=== PATIENT | female | born 1955 | race Caucasian/White ===

== ENCOUNTER 2022-09-25 16:52 | Outpatient (OUT) | payer MEDICARE, OTHER, SELFPAY ==
--- NOTE | 2022-09-25 | XR_ITS ---
The [address] [address] Patient Name: GABRIELA GODINEZ MRN: [id number] date: 1955 Sex: F Assigned Patient Location: [facility] Current Patient Location: Accession/Order Number: [id number] Exam Date: 09/25/2022 17:30 Report Date: 09/26/2022 07:41 At the request of: GABRIELA TROY Procedure: XR ribs LT 2V EXAMINATION: XR ribs LT 2V HISTORY: M25.512 COMPARISON: No relevant comparison available. FINDINGS: LUNGS: Patchy infiltrates left midlung, atelectasis or scar is favored. Underlying hyperinflation. PLEURA: No pneumothorax, effusion, or pleural thickening. MEDIASTINUM: No visible mass or adenopathy. CARDIAC: No cardiomegaly or cardiac silhouette abnormality. RIBS: Contour deformity left anterior lateral third fourth fifth sixth and seventh ribs OTHER: Negative. IMPRESSION: Contour deformity left lateral third through seventh ribs, age indeterminate fractures Electronically authenticated by: ABDIAS LAUGHLIN Date: 09/26/2022 07:41
--- NOTE | 2022-09-25 | XR_ITS ---
The [address] [address] Patient Name: GABRIELA GODINEZ MRN: [id number] date: 1955 Sex: F Assigned Patient Location: [facility] Current Patient Location: [facility] Accession/Order Number: [id number] Exam Date: 09/25/2022 17:30 Report Date: 09/25/2022 19:28 At the request of: GABRIELA TROY Procedure: XR shoulder LT min 2V EXAM: XR shoulder LT min 2V HISTORY: PLEURODYNIA R07.81 . The patient fell 09/22/2022 COMPARISON: None. TECHNIQUE: 3 views of the left shoulder were obtained. FINDINGS: There is no evidence of an acute fracture or dislocation. There is mild narrowing of the acromioclavicular joint. The acromiohumeral interval is intact and no abnormal soft tissue calcifications are present. Diffuse osteopenia is noted. IMPRESSION: No acute fracture or dislocation. Mild degenerative changes are present with diffuse osteopenia. Electronically authenticated by: MELLY SEO Date: 09/25/2022 19:28
--- NOTE | 2022-09-25 | XR_ITS ---
The [address] [address] Patient Name: GABRIELA GODINEZ MRN: [id number] date: 1955 Sex: F Assigned Patient Location: [facility] Current Patient Location: [facility] Accession/Order Number: [id number] Exam Date: 09/25/2022 17:30 Report Date: 09/25/2022 18:18 At the request of: GABRIELA SIMMONS Procedure: XR chest 2V EXAM: XR chest 2V HISTORY: pLEURODYNIA R07.81 LT SHOULDER PAIN M25.512 . The patient fell 3 days ago. COMPARISON: 05/22/2022 TECHNIQUE: Upright PA and lateral chest x-ray FINDINGS: The heart is not enlarged and the vasculature is not distended. Lungs are overexpanded with flattening of the hemidiaphragms. Linear atelectasis or scarring is seen in the left mid lung. There is no clear evidence of a focal infiltrate, effusion or pneumothorax. The osseous structures are grossly intact. Surgical clips project over the right hemithorax. IMPRESSION: No apparent acute infiltrate or evidence of cardiac decompensation. Chronic changes are noted. The overall appearance of the chest has not changed significantly. Electronically authenticated by: MELLY SEO Date: 09/25/2022 18:18
== END 2022-09-25 16:53 | disposition home or self-care (01) ==
LOC: RAD 16:57
PROVIDERS: PCP Nurse Practitioner Family; Visit Provider Nurse Practitioner Family
DX: R07.81 Pleurodynia (principal); M25.512 Pain in left shoulder; M85.812 Other specified disorders of bone density and structure, left shoulder
CPT/HCPCS: 71046; 71100; 73030

== ENCOUNTER 2022-09-26 19:55 | Emergency (ER) | payer MEDICARE, OTHER, SELFPAY ==
[2022-09-26 20:00] VITALS: BP 145/77; PULSE 97; RESP 16; TEMP 37.2; O2SAT 95; BMI 25.7
--- NOTE | 2022-09-26 20:44 | ED.TRAUMA1 ---
HPI - Trauma General Chief Complaint: Extremity Injury, Upper Stated Complaint: RIB PAIN Time Seen by Provider: 09/26/22 20:37 Source: patient Mode of arrival: Wheelchair History of Present Illness HPI narrative: patient states she tripped on her carpet at home and fell against the door striking her left chest and shoulder. Presents complaining of pain of her ribs and left shoulder. States her shoulder is now clicking. She is not short of breath but increased pain with deep breath. Denies striking her head or any injury to her neck. Denies weakness of her extremities. No associated nausea or vomiting. Denies injury to her lower extremities or back. MD complaint: Reports fall and injury Onset (ago): hour(s) Related Data Home Medications Medication Instructions Recorded Confirmed albuterol sulfate 90 mcg/actuation 2 inh inhalation Q6H PRN shortness 09/26/22 09/26/22 aerosol inhaler of breath or wheezing cetirizine 10 mg tablet 10 mg PO DAILY 09/26/22 09/26/22 fluticasone furoate 100 1 inh inhalation Q24H 09/26/22 09/26/22 mcg-vilanterol 25 mcg/dose inhalation powder (Breo Ellipta) gabapentin 600 mg tablet 1,200 mg PO .qhs 09/26/22 09/26/22 isosorbide mononitrate 60 mg 60 mg PO .q24 09/26/22 09/26/22 tablet,extended release 24 hr levofloxacin 750 mg tablet 750 mg PO Q24H 09/26/22 09/26/22 metoclopramide HCl 10 mg tablet 10 mg PO .COMPLEX 09/26/22 09/26/22 metoprolol succinate 100 mg 100 mg PO Q12H 09/26/22 09/26/22 tablet,extended release 24 hr ondansetron 4 mg disintegrating 4 mg translingual Q6H PRN nausea 09/26/22 09/26/22 tablet and vomiting pantoprazole 40 mg tablet,delayed 40 mg PO DAILY 09/26/22 09/26/22 release potassium chloride 10 mEq 10 meq PO BID 09/26/22 09/26/22 tablet,extended release(part/cryst) prednisone 20 mg tablet 20 mg PO .q8 09/26/22 09/26/22 promethazine 25 mg tablet 25 mg PO Q4H PRN nausea and 09/26/22 09/26/22 vomiting quetiapine 50 mg tablet 50 mg PO .qhs 09/26/22 09/26/22 tizanidine 4 mg tablet 4 mg PO Q12H PRN muscle spasticity 09/26/22 09/26/22 tramadol 50 mg tablet 50 mg PO Q8H PRN pain 09/26/22 09/26/22 Allergies Allergy/AdvReac Type Severity Reaction Status Date / Time NSAIDS (Non-Steroidal Allergy Severe Anaphylaxis Verified 09/26/22 20:11 Anti-Inflamma vancomycin Allergy Verified 09/26/22 20:11 Review of Systems ROS Status of ROS 10 or more systems reviewed and unremarkable except as noted in history and below Exam Constitutional Vital Signs - 24 hr 09/26/22 20:00 Temperature 99.0 F Pulse Rate [Monitor] 97 H Respiratory Rate 16 Blood Pressure [Left Arm] 145/77 H Pulse Oximetry 95 Oxygen Delivery Method Room Air Common normals: no apparent distress, oriented x3, healthy appearing and alert HENMT Common normals: normocephalic and head/scalp atraumatic Eye Common normals: PERRL, EOMs intact bilaterally and conjunctivae normal Neck & C-Spine Common normals: full ROM Chest Common normals: inspection of chest normal Other: left chest wall tender. no crepitis Respiratory Common normals: normal respiratory effort, no use of accessory muscles and clear to auscultation bilaterally GI Common normals: Normal to inspection, nondistended, normoactive bowel sounds present Other: tenderness LUQ. no obvious abdominal wall contusion. Extremity Common normals: normal to inspection and full ROM Neuro Common normals: oriented x3, moves all extremities and no focal motor deficits Psych Appearance: grossly normal Course Vital Signs Vital signs: Vital Signs Temperature 99.0 F 09/26/22 20:00 Pulse Rate 97 H 09/26/22 20:00 Respiratory Rate 16 09/26/22 20:00 Blood Pressure 145/77 H 09/26/22 20:00 Pulse Oximetry 95 09/26/22 20:00 Oxygen Delivery Method Room Air 09/26/22 20:00 Temperature 99.0 F 09/26/22 20:00 Pulse Rate 97 H 09/26/22 20:00 Respiratory Rate 16 09/26/22 20:00 Blood Pressure 145/77 H 09/26/22 20:00 Pulse Oximetry 95 09/26/22 20:00 Oxygen Delivery Method Room Air 09/26/22 20:00 MDM - Trauma MDM Narrative Medical decision making narrative: patient presents after fall at home striking her left chest and shoulder. has mild shoulder pain. Mostly complaining about left rib cage pain. has tenderness of her left chest wall. diagnostic studies neg for any new findings. Patient medicated for pain and discharged home with diagnosis of chest wall and left shoulder contusion Lab Data Labs: Lab Results 09/26/22 09/26/22 Range/Units 21:06 21:14 WBC 7.1 (4.0-11.0) 10^3/uL RBC 3.69 L (4.20-5.40) 10^6/uL Hgb 11.1 L (12.0-16.0) g/dL Hct 35.6 L (36.0-48.0) % MCV 96.5 (81.0-99.0) fL MCH 30.1 (26.7-34.0) pg MCHC 31.2 (29.9-35.2) g/dL RDW 15.0 (11.0-15.0) % Plt Count 211 (150-450) 10^3/uL MPV 12.4 (9.5-13.5) fL Neut % (Auto) 57.0 (43.0-75.0) % Lymph % (Auto) 23.1 (20.5-60.0) % [place] % (Auto) 16.3 H (1.7-12.0) % Eos % (Auto) 2.5 (0.9-7.0) % Baso % (Auto) 0.8 (0.2-2.0) % Neut # (Auto) 4.0 (1.4-6.5) 10^3/uL Lymph # (Auto) 1.6 (1.2-3.8) 10^3/uL [place] # (Auto) 1.2 H (0.3-0.8) 10^3/uL Eos # (Auto) 0.2 (0.0-0.7) 10^3/uL Baso # (Auto) 0.1 (0.0-0.1) 10^3/uL Abs Immat Gran (auto) 0.02 (0.00-0.03) 10^3/uL Imm/Tot Granulo (auto) 0.3 (0.0-0.5) % Sodium 141 (136-145) mmol/L Potassium 4.7 (3.5-5.1) mmol/L Chloride 107 (98-107) mmol/L Carbon Dioxide 26.7 (21.0-32.0) mmol/L Anion Gap 12.0 BUN 23.0 H (7.0-18.0) mg/dL Creatinine 1.05 H (0.55-1.02) mg/dL Est GFR ( Amer) >60 (>=60) Est GFR (Non-Af Amer) 53 L (>=60) BUN/Creatinine Ratio 21.9 Glucose 92 (74-106) mg/dL Lactate 0.9 (0.4-2.0) mmol/L Calcium 8.4 L (8.5-10.1) mg/dL Total Bilirubin 0.2 (0.2-1.0) mg/dL AST 26 (15-37) U/L ALT 14 (14-59) U/L Alkaline Phosphatase 97 (46-116) U/L Total Protein 6.5 (6.4-8.2) g/dL Albumin 2.8 L (3.4-5.0) g/dL Globulin 3.7 g/dL Albumin/Globulin Ratio 0.8 Discharge Plan Discharge Chief Complaint: Extremity Injury, Upper Clinical Impression: Contusion of left front wall of thorax, Contusion of left shoulder Patient Disposition: Home, Self-Care Prescriptions / Home Meds: No Action albuterol sulfate 90 mcg/actuation HFA aerosol inhaler 2 inh INHALATION Q6H PRN (Reason: shortness of breath or wheezing) cetirizine 10 mg tablet 10 mg PO DAILY fluticasone furoate-vilanterol [Breo Ellipta] 100-25 mcg/dose blister with device 1 inh INHALATION Q24H gabapentin 600 mg tablet 1,200 mg PO .qhs isosorbide mononitrate 60 mg tablet extended release 24 hr 60 mg PO .q24 levofloxacin 750 mg tablet 750 mg PO Q24H metoprolol succinate 100 mg tablet extended release 24 hr 100 mg PO Q12H metoclopramide HCl 10 mg tablet 10 mg PO .COMPLEX Rx Instructions: 10 mg orally before meals at at bedtime; ondansetron 4 mg tablet,disintegrating 4 mg translingual Q6H PRN (Reason: nausea and vomiting) pantoprazole 40 mg tablet,delayed release (DR/EC) 40 mg PO DAILY potassium chloride 10 mEq tablet,ER particles/crystals 10 meq PO BID prednisone 20 mg tablet 20 mg PO .q8 promethazine 25 mg tablet 25 mg PO Q4H PRN (Reason: nausea and vomiting) Patient Comments: x 14 days quetiapine 50 mg tablet 50 mg PO .qhs tizanidine 4 mg tablet 4 mg PO Q12H PRN (Reason: muscle spasticity) tramadol 50 mg tablet 50 mg PO Q8H PRN (Reason: pain) Instructions: Contusion in Adults (ED) Additional Instructions: follow up with the family doctor in 2-3 days Stand Alone Forms: Portal Instructions Referrals: Bill Sanderson MD [Primary Care Provider] - 1 week
--- NOTE | 2022-09-26 20:49 | CT_ITS ---
The [address] [address] Patient Name: GABRIELA GODINEZ MRN: [id number] date: 1955 Sex: F Assigned Patient Location: ER Current Patient Location: ER Accession/Order Number: [id number] Exam Date: 09/26/2022 22:10 Report Date: 09/26/2022 23:00 At the request of: RAVI RAMIREZ Procedure: CT abdomen pelvis w con EXAMINATION: CT chest w con, CT abdomen pelvis w con HISTORY: trauma [left-sided pain. COMPARISON: CT abdomen pelvis 08/26/2022. CT thorax 10/31/2020. TECHNIQUE: CT examination of the chest, abdomen, and pelvis after the administration of intravenous contrast. Coronal and sagittal reformations were performed. Dose reduction techniques were achieved by using automated exposure control and/or adjustment of mA and/or kV according to patient size and/or use of iterative reconstruction technique. FINDINGS: CT thorax: The thoracic aorta is normal in course and caliber without aneurysm. The heart appears normal with no evidence of pericardial effusion. Mildly enlarged subcarinal node measures 1.3 x 1.6 cm. The tracheobronchial tree is patent. Mild to moderate centrilobular emphysema most significant in a upper lobe distribution. Linear scarring of the right lung is present with mild volume loss and atelectasis likely prior study. There is no consolidation, mass or pleural effusion. There is no pneumothorax. Right axillary surgical clips are present. CT abdomen and pelvis: The liver, gallbladder, spleen and right adrenal gland are unremarkable. Fatty replacement of the pancreas is present. Left adrenal mass measures 3.5 x 2.7 cm in AP and transverse diameter similar in size and appearance to study 06/14/2018 previously containing fat density on noncontrasted imaging. The bilateral kidneys demonstrate normal enhancement without hydronephrosis. The bilateral ureters demonstrate no gross abnormality or obstruction. The stomach and small bowel are unremarkable. The appendix is surgically absent. The colon is unremarkable. [place] artifact from bilateral total hip prostheses degrade evaluation. The bladder appears unremarkable. There is no evidence of aortic aneurysm present. No enlarged lymph nodes are seen. No free air or free fluid is seen. The uterus is surgically absent. Osseous structures:Moderate degenerative change of the right shoulder with osseous remodeling is partially included. The right first rib is diminutive in size. Remote fracture deformities of the right third and fourth ribs anteriorly. Low left anterolateral rib fracture deformities ribs 3-7 and the ninth rib posteriorly. Superior endplate deformity likely Schmorl's node at T5 and minimally at T11 appear unchanged from 10/31/2020. No retropulsion into the spinal canal. Lower lumbar facet arthropathy. IMPRESSION: CT thorax: 1. No acute traumatic injury identified. 2. Mild to moderate centrilobular emphysema and left lung scarring. 3. Mild subcarinal adenopathy possibly reactive CT abdomen and pelvis: 1. No acute traumatic injury identified. 2. Stable left adrenal mass measures 3.5 cm, likely adenoma. Electronically authenticated by: GREGORY CHEN Date: 09/26/2022 23:00
[2022-09-26] MEDS: 0.9 % SODIUM CHLORIDE 1,000 ML 999 ML IV (21:15)
--- NOTE | 2022-09-26 21:19 | XR_ITS ---
The [place] [id number] Patient Name: GABRIELA GODINEZ MRN: [id number] date: 1955 Sex: F Assigned Patient Location: ER Current Patient Location: ER Accession/Order Number: [id number] Exam Date: 09/26/2022 22:10 Report Date: 09/26/2022 22:42 At the request of: RAVI RAMIREZ Procedure: XR shoulder LT min 2V EXAM: XR shoulder LT min 2V HISTORY: pain COMPARISON: None. FINDINGS: 3 views of the left shoulder. There are 2 lateral ribs with subtle cortical irregularity, suggestive of mildly displaced fractures. Mild degenerative arthrosis of the acromioclavicular joint. The glenohumeral joint is maintained. Streaky atelectasis within the imaged left lung. IMPRESSION: 1. Findings suggestive of two mildly displaced left lateral rib fractures. Correlation with same-day CT is recommended. 2. No acute abnormality of the left shoulder. Electronically authenticated by: EMILE ANDERSON Date: 09/26/2022 22:42
--- NOTE | 2022-09-26 21:19 | CT_ITS ---
The [address] [address] Patient Name: GABRIELA GODINEZ MRN: [id number] date: 1955 Sex: F Assigned Patient Location: ER Current Patient Location: ER Accession/Order Number: [id number] Exam Date: 09/26/2022 22:10 Report Date: 09/26/2022 23:00 At the request of: RAVI RAMIREZ Procedure: CT chest w con EXAMINATION: CT chest w con, CT abdomen pelvis w con HISTORY: trauma [left-sided pain. COMPARISON: CT abdomen pelvis 08/26/2022. CT thorax 10/31/2020. TECHNIQUE: CT examination of the chest, abdomen, and pelvis after the administration of intravenous contrast. Coronal and sagittal reformations were performed. Dose reduction techniques were achieved by using automated exposure control and/or adjustment of mA and/or kV according to patient size and/or use of iterative reconstruction technique. FINDINGS: CT thorax: The thoracic aorta is normal in course and caliber without aneurysm. The heart appears normal with no evidence of pericardial effusion. Mildly enlarged subcarinal node measures 1.3 x 1.6 cm. The tracheobronchial tree is patent. Mild to moderate centrilobular emphysema most significant in a upper lobe distribution. Linear scarring of the right lung is present with mild volume loss and atelectasis likely prior study. There is no consolidation, mass or pleural effusion. There is no pneumothorax. Right axillary surgical clips are present. CT abdomen and pelvis: The liver, gallbladder, spleen and right adrenal gland are unremarkable. Fatty replacement of the pancreas is present. Left adrenal mass measures 3.5 x 2.7 cm in AP and transverse diameter similar in size and appearance to study 06/14/2018 previously containing fat density on noncontrasted imaging. The bilateral kidneys demonstrate normal enhancement without hydronephrosis. The bilateral ureters demonstrate no gross abnormality or obstruction. The stomach and small bowel are unremarkable. The appendix is surgically absent. The colon is unremarkable. [place] artifact from bilateral total hip prostheses degrade evaluation. The bladder appears unremarkable. There is no evidence of aortic aneurysm present. No enlarged lymph nodes are seen. No free air or free fluid is seen. The uterus is surgically absent. Osseous structures:Moderate degenerative change of the right shoulder with osseous remodeling is partially included. The right first rib is diminutive in size. Remote fracture deformities of the right third and fourth ribs anteriorly. Low left anterolateral rib fracture deformities ribs 3-7 and the ninth rib posteriorly. Superior endplate deformity likely Schmorl's node at T5 and minimally at T11 appear unchanged from 10/31/2020. No retropulsion into the spinal canal. Lower lumbar facet arthropathy. IMPRESSION: CT thorax: 1. No acute traumatic injury identified. 2. Mild to moderate centrilobular emphysema and left lung scarring. 3. Mild subcarinal adenopathy possibly reactive CT abdomen and pelvis: 1. No acute traumatic injury identified. 2. Stable left adrenal mass measures 3.5 cm, likely adenoma. Electronically authenticated by: GREGORY CHEN Date: 09/26/2022 23:00
[2022-09-26 21:20] LABS: Basophils Absolute Auto 0.1 10^3/uL (0.0-0.1); Basophils Percent Auto 0.8 % (0.2-2.0); Eosinophils Absolute Auto 0.2 10^3/uL (0.0-0.7); Eosinophils Percent Auto 2.5 % (0.9-7.0); Hematocrit 35.6 % (36.0-48.0); Hemoglobin 11.1 g/dL (12.0-16.0); Immature Granulocytes Abs Auto 0.02 10^3/uL (0.00-0.03); Immature Granulocytes Pct Auto 0.3 % (0.0-0.5); Lymphocytes Absolute Auto 1.6 10^3/uL (1.2-3.8); Lymphocytes Percent Auto 23.1 % (20.5-60.0); Mean Corpuscular HGB Conc 31.2 g/dL (29.9-35.2); Mean Corpuscular Hemoglobin 30.1 pg (26.7-34.0); Mean Corpuscular Volume 96.5 fL (81.0-99.0); Mean Platelet Volume 12.4 fL (9.5-13.5); Monocytes Absolute Auto 1.2 10^3/uL (0.3-0.8); Monocytes Percent Auto 16.3 % (1.7-12.0); Platelet Count 211 10^3/uL (150-450); Red Blood Count 3.69 10^6/uL (4.20-5.40); White Blood Count 7.1 10^3/uL (4.0-11.0)
[2022-09-26 21:38] LABS: Lactate/Lactic Acid 0.9 mmol/L (0.4-2.0)
[2022-09-26 21:44] LABS: Alanine Aminotransferase 14 U/L (14-59); Albumin Globulin Ratio 0.8; Albumin Level 2.8 g/dL (3.4-5.0); Alkaline Phosphatase 97 U/L (46-116); Aspartate Amino Transferase 26 U/L (15-37); BUN Creatinine Ratio 21.9; Bilirubin Total 0.2 mg/dL (0.2-1.0); Calcium 8.4 mg/dL (8.5-10.1); Carbon Dioxide 26.7 mmol/L (21.0-32.0); Chloride 107 mmol/L (98-107); Estimated GFR (African America >60 (>=60); Estimated GFR (Non-African Ame 53 (>=60); Globulin 3.7 g/dL; Glucose 92 mg/dL (74-106); Potassium 4.7 mmol/L (3.5-5.1); Sodium 141 mmol/L (136-145); Total Protein 6.5 g/dL (6.4-8.2)
[2022-09-26] MEDS: FENTANYL CITRATE/PF 100 MCG/2 ML VIAL 50 MCG IV (23:01)
[2022-09-26] MEDS: HYDROCODONE/ACETAMINOPHEN 5-325 MG TABLET 2 TAB PO (23:35)
[2022-09-26 23:44] VITALS: BP 129/68; PULSE 80; RESP 16; O2SAT 95
== END 2022-09-26 23:46 | disposition home or self-care (01) ==
PROVIDERS: Emergency Provider Internal Medicine; PCP Family Medicine
DX: S40.012A Contusion of left shoulder, initial encounter (principal); S20.212A Contusion of left front wall of thorax, initial encounter; W18.09XA Striking against other object with subsequent fall, initial encounter; Z79.899 Other long term (current) drug therapy
CPT/HCPCS: 36415; 71260; 73030; 74177; 80053; 83605; 85025; 96374; 99285; Q9967

== ENCOUNTER 2023-02-06 11:43 | Outpatient (OUT) | payer MEDICARE, OTHER, SELFPAY ==
[2023-02-06 12:30] LABS: Basophils Absolute Auto 0.1 10^3/uL (0.0-0.1); Basophils Percent Auto 1.2 % (0.2-2.0); Eosinophils Absolute Auto 0.2 10^3/uL (0.0-0.7); Eosinophils Percent Auto 2.6 % (0.9-7.0); Hematocrit 40.6 % (36.0-48.0); Hemoglobin 12.8 g/dL (12.0-16.0); Immature Granulocytes Abs Auto 0.01 10^3/uL (0.00-0.03); Immature Granulocytes Pct Auto 0.1 % (0.0-0.5); Lymphocytes Absolute Auto 2.1 10^3/uL (1.2-3.8); Lymphocytes Percent Auto 25.7 % (20.5-60.0); Mean Corpuscular HGB Conc 31.5 g/dL (29.9-35.2); Mean Corpuscular Hemoglobin 31.1 pg (26.7-34.0); Mean Corpuscular Volume 98.8 fL (81.0-99.0); Mean Platelet Volume 11.5 fL (9.5-13.5); Monocytes Absolute Auto 0.6 10^3/uL (0.3-0.8); Monocytes Percent Auto 7.6 % (1.7-12.0); Neutrophils Percent Auto 62.8 % (43.0-75.0); Platelet Count 276 10^3/uL (150-450); Red Blood Count 4.11 10^6/uL (4.20-5.40); Red Cell Distribution Width 13.9 % (11.0-15.0)
[2023-02-06 13:21] LABS: Erythrocyte Sedimentation Rate 56 mm/hr (<=30)
[2023-02-06 14:44] LABS: C Reactive Protein <0.2 mg/dL (<=1.0)
== END 2023-02-06 11:44 | disposition home or self-care (01) ==
LOC: LAB 11:47
PROVIDERS: PCP Family Medicine; Visit Provider Family Medicine
DX: L03.90 Cellulitis, unspecified (principal); M25.569 Pain in unspecified knee
CPT/HCPCS: 36415; 85025; 85652; 86140; 87040

== ENCOUNTER 2023-04-02 14:50 | Emergency (ER) | payer MEDICARE, OTHER, SELFPAY ==
[2023-04-02 14:55] VITALS: BP 110/89; PULSE 61; RESP 18; TEMP 36.8; O2SAT 94; BMI 34.5
--- OUTSIDE RECORDS SUMMARY | 2023-04-02 14:58 | XMS_ITS | CCD ---
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 Referring Unavailable MARSHA HATCH Attending Unavailable Levi Shine MD Primary Care Provider KARAN SULLIVAN Attending Unavailable LEVI SHINE Primary Care Unavailable LEVI SHINE Referring Unavailable KARAN SULLIVAN Admitting Unavailable KARAN SULLIVAN Attending Unavailable LEVI SHINE Primary Care Unavailable LEVI SHINE Referring Unavailable KARAN SULLIVAN Admitting Unavailable Levi Shine MD Primary Care Provider Levi Shine MD Primary Care Provider [phone] RL ., DR SIMS Attending Unavailable HOY ., DR SIMS Primary Care Unavailable HOY ., DR SIMS Consulting Unavailable HOY ., DR SIMS Admitting Unavailable HOY ., DR SIMS Attending Unavailable HOY ., DR SIMS Primary Care Unavailable HOY ., DR SIMS Consulting Unavailable HOY ., DR SIMS Admitting Unavailable HOY ., DR SIMS Attending Unavailable HOY ., DR SIMS Primary Care Unavailable HOY ., DR SIMS Consulting Unavailable HOY ., DR SIMS Admitting Unavailable HOY ., DR SIMS Attending Unavailable HOY ., DR SIMS Primary Care Unavailable ALTONY ., DR SIMS Admitting Unavailable DR CHONG HICKS Consulting Unavailable HOY ., DR SIMS Consulting Unavailable GUILLE RAY Consulting Unavailable HOY ., DR SIMS Attending Unavailable HOY ., DR SIMS Primary Care Unavailable HOY ., DR SIMS Consulting Unavailable HOY ., DR SIMS Admitting Unavailable SMITA .VALARIE Consulting UnavailABDIAS Bello Consulting Unavailable GRADY CARDENAS Consulting Unavailable MELLY SEO Consulting Unavailable RIK, SALOME Consulting Unavailable SISTER, INDIO Consulting Unavailable ALTONY ., DR SIMS Primary Care Unavailable HOY ., DR SIMS Consulting Unavailable HOY ., DR SIMS Attending Unavailable HOY ., DR SIMS Admitting Unavailable ZIEBER, DR GARO Sloan Consulting Unavailable COLÓN, LIDIA Consulting Unavailable DELROY, SALVADOR Consulting Unavailable PAEZ, JUANITO Consulting Unavailable PRESLEY ., LICHA Consulting Unavailable DIAB ., ARIANNA Consulting Unavailable KATKO JACKY D Consulting Unavailable JACKY HOWELL Attending Unavailable HOY ., DR SIMS Primary Care Unavailable JACKY HOWELL Admitting Unavailable HOY ., DR SIMS Primary Care Unavailable MISC, DR OSCAR Admitting Unavailable MISC, DR OSCAR Attending Unavailable FAWWAD, ANGELO H Admitting Unavailable FAWWAMike ANGELO H Attending Unavailable HOY ., DR SIMS Primary Care Unavailable FAEMMA, ANGELO H Attending Unavailable HOY ., DR SIMS Primary Care Unavailable FAEMMA, ANGELO H Admitting Unavailable HOY ., DR SIMS Primary Care Unavailable HOY ., DR SIMS Attending Unavailable HOY ., DR SIMS Admitting Unavailable HOY ., DR SIMS Attending Unavailable HOY ., DR SIMS Primary Care Unavailable HOY ., DR SIMS Admitting Unavailable HOY ., DR SIMS Admitting Unavailable HOY ., DR SIMS Attending Unavailable HOY ., DR SIMS Primary Care Unavailable HOY ., DR SIMS Consulting Unavailable ZIEBER, DR GARO Sloan Consulting Unavailable HOY, LEVI Primary Care Unavailable EMMEL, BRITTANY Referring Unavailable EMMEL, BRITTANY Referring Unavailable HOY, LEVI Primary Care Unavailable EMMEL, BRITTANY Referring Unavailable HOY, LEVI Primary Care Unavailable EMMEL, BRITTANY Referring Unavailable HOY, LEVI Primary Care Unavailable HOY, LEVI Primary Care Unavailable EMMEL, BRITTANY Referring Unavailable HOY, LEVI Primary Care Unavailable EMMEL, BRITTANY Referring Unavailable HOY, LEVI Primary Care Unavailable MIL GARZA~[id number], [place] SEA GARZA~[phone] MIL Referring Unavailable HOY, LEVI Primary Care Unavailable EMMEL, BRITTANY Referring Unavailable HOY, LEVI Primary Care Unavailable COLLETTE JAMES Referring Unavailable EMMEL, BRITTANY Attending Unavailable HOY, LEVI Primary Care Unavailable EMMEL, BRITTANY Attending Unavailable HOY, LEVI Primary Care Unavailable EMMEL, BRITTANY Referring Unavailable EMMELJOAQUINBRITTANY Attending Unavailable HOY, ELVI Primary Care Unavailable EMMEL, BRITTANY Referring Unavailable EMMEL, BRITTANY Attending Unavailable HOY, LEVI Primary Care Unavailable EMMEL, BRITTANY Referring Unavailable HOY, LEVI Primary Care Unavailable AISHA CAST Referring Unavailable HOY, LEVI Primary Care Unavailable CALOS SMITH Admitting Unavailable CALOS SMITH Attending Unavailable [facility] Consult[facility] Unavailable Allergies Allergy Classification Reported Allergen(s) Allergy Type Date of Onset Reaction(s) Facility (5 sources) ceFAZolin; Translations: [CEFAZOLIN] Drug Allergy 1 [facility] Morphine; Translations: [MORPHINE] Drug Allergy 1 Hives, Itching [facility] (8 sources) NSAIDs; Translations: [NSAIDS (NON-STEROIDAL ANTI-INFLAMMATOR Y DRUG)] Drug Allergy [address] [facility] (5 sources) Vancomycin; Translations: [VANCOMYCIN] Drug Allergy 1 Other [facility] (1 source) Aspirin Drug Allergy 0 [facility] (3 sources) ceFAZolin Drug Allergy 5 [facility] (1 source) Morphine Drug Allergy 0 [facility] (2 sources) Morphine Drug Allergy [address] [facility] (2 sources) Vancomycin Drug Allergy [facility] Medications Current Medications Medication Drug Class(es) Dates Sig (Normalized) Sig (Original) 30 actuat aclidinium bromide 0.4 mg/actuat dry powder inhaler (3 sources) Start: 01-08-2021 End: 12-29-2021 take 1 puff(s) by inhalation once daily 1 puff, inhalation, Daily, First dose on 01/08/21 at 0900 Is patient COVID 19 positive or under investigation for COVID 19 (PUI) or in a dual occupancy room? No cholecalciferol 0.05 mg oral tablet (2 sources) Vitamin D take 1 tablet by mouth once daily cholecalciferol (VITAMIN D-3) 50 mcg (2,000 unit) tablet Take 1 tablet (2,000 Units total) by mouth 1 (one) time each day. 0 Active 0.4 ml enoxaparin sodium 100 mg/ml prefilled syringe (4 sources) Low Molecular Weight Heparin Start: 04-22-2022 End: 04-29-2022 inject 0.4 mL by subcutaneous injection once daily enoxaparin (LOVENOX) 40 mg/0.4 mL syringe Inject 0.4 mL (40 mg total) under the skin 1 (one) time each day for 7 days. 7 each 0 04/22/2022 04/29/2022 Active Start: 04-21-2022 End: 04-22-2022 enoxaparin (LOVENOX) injecti on 40 mg Start: 01-06-2022 End: 01-13-2022 inject 0.4 mL by subcutaneous injection once daily enoxaparin (LOVENOX) 40 mg/0.4 mL syringe Inject 0.4 mL (40 mg total) under the skin 1 (one) time each day for 7 days. 7 each 0 01/06/2022 01/13/2022 Active Start: 01-04-2022 End: 01-06-2022 enoxaparin (LOVENOX) injecti on 40 mg miconazole nitrate 20 mg/ml topical cream (1 source) Azole Antifungal Start: 01-08-2021 End: 01-18-2021 apply 1 dose topically twice daily Topical, 2 times daily, First dose on 01/08/21 at 0900, For 10 days midodrine hydrochloride 5 mg oral tablet (3 sources) alpha-Adrenergic Agonist Start: 01-08-2021 End: 12-29-2021 take 5 mg by mouth three times daily 5 mg, oral, 3 times daily, First dose on 01/08/21 at 0900 multivitamin (multivitamin) tablet (3 sources) take 1 tablet by mouth once daily multivitamin (multivitamin) tablet Take 1 tablet by mouth 1 (one) time each day. 0 Active take 1 tablet by arin th once daily, then take 1 tablet by mouth once daily multivitamin (multivitamin) tablet Take 1 tablet by mouth 1 (one) time each day. 1 Tab, PO, Daily, with folic acid, Tab, 0 Refill(s) 0 Active 1 ml nalbuphine hydrochloride 10 mg/ml injection (1 source) Opioid Agonist/Antagonist Start: 01-08-2021 nalb uphine (NUBAIN) 10 mg/mL injection 2.5 mg nitroglycerin 0.4 mg sublingual tablet (3 sources) Nitrate Vasodilator Start: 01-08-2021 0.4 mg, everett blingual, Every 5 min PRN, chest pain, Starting on 01/08/21 at 0721 Give every 5 minutes as needed for chest pain to a maximum of 3 doses. Notify MD to obtain an order for an EKG if no relief after 3 doses or chest pain recurs. HOLD and notify MD if SBP less than 90 mmHg. Do not give if nitroglycerin infusion running concurrently. Do not give within 24 hours of sildenafil citrate (Viagra) or vardenafil (Levitra) use, or within 48 hours of tadalafil (Cialis) use. End: 12-29-2021 nitroglycerin (NITROSTAT) 0. [address] 0.4 mg under the tongue every 5 (five) minutes if needed for chest pain. 0 12/29/2021 Discontinued (Entered in Error) sevelamer carbonate 800 mg oral tablet (3 sources) Phosphate Binder Start: 01-08-2021 take 800 mg by mouth three times daily at mealtime 800 mg, oral, 3 times daily with meals, First dose on 01/08/21 at 0800 Do not crush, chew, or split. End: 12-29-2021 take 1 tablet by mouth three times daily at mealtime sevelamer (RENAGEL) 800 mg tablet Take 800 mg by mouth 3 (three) times a day with meals. Swallow tablet whole; do not crush, break, or chew. 0 12/29/2021 Discontinued (Entered in Error) tiZANidine 4 mg oral tablet (1 source) Central alpha-2 Adrenergic Agonist take 1 tablet by mouth twice daily for muscle spasms tiZANidine (ZANAFLEX) 4 mg tablet Take 1 tablet (4 mg total) by mouth 2 (two) times a day if needed for muscle spasms. 0 Active traMADol hydrochloride 50 mg oral tablet (5 sources) Opioid Agonist Start: 3 End: 3 take 50-100 mg by mouth every six hours as needed traMADoL (ULTRAM) 50 mg tablet Take 1-2 tablets (50-100 mg total) by mouth every 6 (six) hours if needed for moderate pain for up to 7 days. Dx: Z96.6 Max Daily Amount: 400 mg 40 tablet 0 04/20/2022 04/27/2022 Active Start: 01-08-2021 End: 01-06-2022 take 1-2 tablets by mouth every six hours as needed traMADoL (ULTRAM) 50 mg tablet 1-2 tabs PO Q6HRS PRN 100 tablet 0 01/08/2021 Active Completed/Discontinued Medications Medication Drug Class(es) Dates Sig (Normalized) Sig (Original) acetaminophen 500 mg oral tablet (10 sources) Start: 04-20-2022 End: 04-22-2022 acetaminophen (TYLENOL) tablet 1,000 mg Start: 04-20-2022 End: 04-22-2022 take 1 tablet by mouth every six hours as needed acetaminophen (TYLENOL) tablet 325 mg Start: 04-20-2022 End: 04-27-2022 take 2 tablets by mouth three times daily as needed acetaminophen (TYLENOL) 500 mg tablet Take 2 tablets (1,000 mg total) by mouth 3 (three) times a day for 7 days. Take every 8 hours for one week, then as needed. Do not exceed 3,000 mg daily limit. 50 tablet 0 04/20/2022 04/27/2022 Active Start: 01-03-2022 End: 01-06-2022 acetaminophen (TYLENOL) tabl et 975 mg Start: 01-03-2022 End: 01-06-2022 take 1 tablet by mouth every six hours as needed acetaminophen (TYLENOL) tablet 650 mg Start: 01-08-2021 End: 01-06-2022 take 2 tablets by mouth every eight hours as needed acetaminophen (Tylenol Extra Strength) 500 mg tablet 2 tabs PO q 8hrs for 7 days then PRN, do not exceed 3000 mg daily limit. 50 tablet 0 01/08/2021 01/06/2022 Discontinued (Stop Taking at Discharge) Start: 01-08-2021 acetaminophen (TYLENOL) tablet 650 mg End: 04-22-2022 take 2 tablets by mouth every six hours as needed acetaminophen (TYLENOL) 500 mg tablet Take 2 tablets (1,000 mg total) by mouth every 6 (six) hours if needed (pain). 0 04/22/2022 Discontinued (Stop Taking at Discharge) End: 01-08-2021 take 1-2 tablets by mouth every four hours as needed for pain acetaminophen (TYLENOL 8 HOUR) 650 mg 8 hr tablet Take 650 mg by mouth every 4 (four) hours if needed (Pain/Discomfort). 1 to 2 tablets, PO, Q4h, PRN Pain/Discomfort, Each, 0 Refill(s) 0 01/08/2021 Discontinued (Stop Taking at Discharge) acetaminophen 325 mg / oxyCODONE hydrochloride 5 mg oral tablet (3 sources) Opioid Agonist Start: 01-03-2022 End: 01-03-2022 oxyCODONE-acetaminophen (PERCOCET) 5-325 mg per tablet 1 tablet End: 12-29-2021 take 1-2 tablets by mouth every four hours oxyCODONE-acetaminophen (Percocet) 5-325 mg per tablet Take 1-2 tablets by mouth every 4 (four) hours if needed (Pain/Discomfort). 0 12/29/2021 Discontinued (Entered in Error) albuterol 0.83 mg/ml inhalation solution (7 sources) beta2-Adrenergic Agonist Start: 04-20-2022 End: 04-22-2022 2.5 mg, nebulization, Every 4 hours PRN, wheezing, Starting on Yvette 04/20/22 at 1652 Start: 01-03-2022 End: 01-06-2022 take 2.5 mg by inhalation every six hours as needed 2.5 mg, nebulization, Every 6 hours PRN, wheezing, Starting on 01/03/22 at 1248 Start: 01-08-2021 2.5 mg, nebuli zation, Every 4 hours PRN, wheezing, Starting on 01/08/21 at 0720 take 1-2 puff(s) by inhalation every six hours for wheezing albuterol HFA (PROAIR HFA ; PROVENTIL HFA ; VENTOLIN HFA) 90 mcg/actuation inhaler Inhale 1-2 puffs every 6 (six) hours if needed for shortness of breath or wheezing. 0 Active End: 01-08-2021 albuterol 2.5 mg /3 mL (0.08 3 %) nebulizer solution Take 3 mL by nebulization every 2 (two) hours if needed for shortness of breath. 0 01/08/2021 Discontinued (Stop Taking at Discharge) take 2 puff(s) by in halation every six hours albuterol HFA (PROAIR HFA ; PROVENTIL HFA ; VENTOLIN HFA) 90 mcg/actuation inhaler Inhale 2 puffs every 6 (six) hours if needed for shortness of breath. 0 Active aluminum hydroxide 40 mg/ml / magnesium hydroxide 40 mg/ml / simethicone 4 mg/ml oral suspension (4 sources) Start: 04-20-2022 End: 04-22-2022 aluminum-magnesium hydroxide-simethicone (MAALOX) 200-200-20 mg/5 mL suspension 30 mL Start: 01-03-2022 End: 01-06-2022 aluminum-magnesium hydroxide-simethicone (MAALOX) 200-200-20 mg/5 mL suspension 30 mL Start: 01-08-2021 aluminum-magne sium hydroxide-simethicone (MAALOX) 200-200-20 mg/5 mL suspension 30 mL End: 01-08-2021 take 30 mL by mouth four times daily for gastroesophageal reflux disease aluminum-magnesium hydroxide-simethicone (MAALOX) 200-200-20 mg/5 mL suspension Take 30 mL by mouth 4 (four) times a day if needed for heartburn. 0 01/08/2021 Discontinued (Stop Taking at Discharge) aspirin 81 mg chewable tablet (1 source) Platelet Aggregation Inhibitor, Nonsteroidal Anti-inflammatory Drug Start: 04-21-2022 End: 04-22-2022 take 1 tablet by mouth twice daily, then take 1 tablet by mouth twice daily aspirin 81 mg chewable tablet Chew 1 tablet (81 mg total) 2 (two) times a day for 7 days. 1) Aspirin 81 mg, 1 tab PO BID for 1 week, Disp appropriate quantity. Patient will restart home warfarin on POD#1. 14 each 0 04/21/2022 04/22/2022 Discontinued (Stop Taking at Discharge) bethanechol chloride 25 mg oral tablet (2 sources) Cholinergic Muscarinic Agonist Start: 04-20-2022 End: 04-22-2022 bethanechol (URECHOLINE) tablet 25 mg Start: 01-03-2022 End: 01-06-2022 bethanechol (URECHOLINE) tab let 25 mg bisacodyl 10 mg rectal suppository (3 sources) Stimulant Laxative Start: 04-20-2022 End: 04-22-2022 bisacodyL (DULCOLAX) suppository 10 mg Start: 01-03-2022 End: 01-06-2022 bisacodyL (DULCOLAX) supposi tory 10 mg Start: 01-08-2021 bisacodyL (DUL COLAX) suppository 10 mg calcium chloride 0.0014 meq/ml / potassium chloride 0.004 meq/ml / sodium chloride 0.103 meq/ml / sodium lactate 0.028 meq/ml injectable solution (3 sources) Start: 04-20-2022 End: 04-22-2022 take 100 mL intravenously every hour 100 mL/hr, intravenous, Continuous, Starting on Yvette 04/20/22 at 1715 Start: 04-20-2022 End: 04-20-2022 lactated Ringer's infusion Start: 01-03-2022 End: 01-03-2022 lactated Ringer's infusion clindamycin 150 mg oral capsule (5 sources) Lincosamide Antibacterial Start: 04-21-2022 End: 04-22-2022 take 1 capsule by mouth every twelve hours clindamycin (CLEOCIN) capsule 300 mg Start: 04-20-2022 End: 04-21-2022 900 mg, intravenous, at 50 m L/hr, Administer over 60 Minutes, Every 8 hours, First dose on Yvette 04/20/22 at 2200, For 2 doses, Recovery & On Unit premix bag Indication: Prophylaxis-Surgical Start: 04-20-2022 End: 04-30-2022 take 2 capsules by mouth every twelve hours clindamycin (Cleocin HCL) 150 mg capsule Take 2 capsules (300 mg total) by mouth every 12 (twelve) hours for 10 days. 20 capsule 0 04/20/2022 04/30/2022 Active End: 12-29-2021 clindamycin in 0.9 % sod chl or 900 mg/50 mL piggyback Infuse 900 mg into a venous catheter every 8 (eight) hours. For 14 days 0 12/29/2021 Discontinued (Entered in Error) cloNIDine hydrochloride 0.1 mg oral tablet (3 sources) Central alpha-2 Adrenergic Agonist Start: 04-20-2022 End: 04-22-2022 cloNIDine (CATAPRES) tablet 0.1 mg Start: 01-03-2022 End: 01-06-2022 take 1 tablet by mouth every six hours as needed cloNIDine (CATAPRES) tablet 0.1 mg Start: 01-08-2021 take 1 tablet by arin th every six hours as needed cloNIDine (CATAPRES) tablet 0.1 mg cyclobenzaprine hydrochloride 10 mg oral tablet (3 sources) Muscle Relaxant Start: 04-20-2022 End: 04-22-2022 cyclobenzaprine (FLEXERIL) tablet 5 mg Start: 01-03-2022 End: 01-06-2022 cyclobenzaprine (FLEXERIL) t ablet 10 mg Start: 01-08-2021 cyclobenzaprin e (FLEXERIL) tablet 10 mg dextromethorphan hydrobromide 2 mg/ml / guaiFENesin 20 mg/ml oral solution (2 sources) Uncompetitive I-pvmeyp-A-aspartate Receptor Antagonist, Sigma-1 Agonist End: 12-29-2021 take 10 mL by mouth every six hours as needed dextromethorphan-guaifenesin 20-200 mg/10 mL liquid in packet Take 10 mL by mouth every 6 (six) hours if needed (cough). 0 12/29/2021 Discontinued (Entered in Error) diazePAM 5 mg oral tablet (6 sources) Benzodiazepine Start: 04-20-2022 End: 04-22-2022 take 2.5 mg by mouth twice daily 2.5 mg, oral, 2 times daily, First dose on Yvette 04/20/22 at 2100 Start: 01-03-2022 End: 01-06-2022 take 2.5 mg by mouth twice daily 2.5 mg, oral, 2 times daily, First dose on Tu01/03/22 at 2100 Start: 01-08-2021 take 2.5 mg by mouth twice daily as needed for anxiety 2.5 mg, oral, 2 times daily PRN, anxiety, Starting on 01/08/21 at 0720 take 1 tablet by arin th twice daily diazePAM (VALIUM) 2 mg tablet Take 1 tablet (2 mg total) by mouth 2 (two) times a day. 0 Active diphenhydrAMINE (2 sources) Histamine-1 Receptor Antagonist Start: 04-20-2022 End: 04-22-2022 take 25 mg intravenously every six hours as needed 25 mg, intravenous, Every 6 hours PRN, itching, Starting on Yvette 04/20/22 at 1652 Start: 01-03-2022 End: 01-06-2022 diphenhydrAMINE (BENADRYL) c apsule 25 mg docusate sodium 100 mg oral capsule (1 source) Start: 01-03-2022 End: 01-06-2022 docusate sodium (COLACE) capsule 100 mg docusate sodium 50 mg / sennosides, detention 8.6 mg oral tablet (2 sources) Start: 04-20-2022 End: 04-22-2022 senna-docusate (PERICOLACE) 8.6-50 mg per tablet 1 tablet Start: 01-08-2021 senna-docusate (PERICOLACE) 8.6-50 mg per tablet 1 tablet 1 ml fentaNYL 0.05 mg/ml injection (1 source) Opioid Agonist Start: 01-03-2022 End: 01-03-2022 fentaNYL (SUBLIMAZE) injection 25 mcg gabapentin 600 mg oral tablet (10 sources) Anti-epileptic Agent Start: 04-21-2022 End: 04-22-2022 gabapentin (NEURONTIN) tablet 600 mg Start: 04-20-2022 End: 04-22-2022 gabapentin (NEURONTIN) table t 1,200 mg Start: 01-04-2022 End: 01-06-2022 take 600 mg by mouth once daily 600 mg, oral, Daily, F irst dose on Sun01/04/22 at 0900 Start: 01-03-2022 End: 01-06-2022 take 1200 mg by mouth once daily 1,200 mg, oral, Night ly, First dose on Tu01/03/22 at 2100 Start: 01-08-2021 take 600 mg by mouth twice krista ly 600 mg, oral, 2 times daily, First dose on 01/08/21 at 0900 take 2 tablets by mo uth at bedtime gabapentin (NEURONTIN) 600 mg tablet Take 2 tablets (1,200 mg total) by mouth at bedtime. 0 Active take 1 tablet by arin twice daily gabapentin (NEURONTIN) 600 mg tablet Take 600 mg by mouth 2 (two) times a day. 0 Active hydrALAZINE (1 source) Arteriolar Vasodilator End: 01-08-2021 hydralazine HCl (HYDRALAZINE INJ) Infuse into a venous catheter every 4 (four) hours if needed (hypertension). IV, Q4h, PRN hypertension, 10 ml / 0.5 ml iv, Each, 0 Refill(s) 0 01/08/2021 Discontinued (Stop Taking at Discharge) 0.5 ml HYDROmorphone hydrochloride 1 mg/ml prefilled syringe (6 sources) Opioid Agonist Start: 04-20-2022 End: 04-22-2022 HYDROmorphone (DILAUDID) injection 0.5 mg Start: 01-04-2022 End: 01-06-2022 HYDROmorphone (DILAUDID) inj ection 1 mg Start: 01-03-2022 End: 01-04-2022 HYDROmorphone (DILAUDID) inj ection 0.5 mg Start: 01-03-2022 End: 01-03-2022 HYDROmorphone (DILAUDID) inj ection 0.25 mg Start: 01-08-2021 HYDROmorphone (DILAUDID) injection 0.5 mg hyoscyamine sulfate 0.125 mg sublingual tablet (2 sources) End: 12-29-2021 hyoscyamine (LEVSIN) 0.[address] 0.125 mg under the tongue 4 (four) times a day if needed (GI upset). 0 12/29/2021 Discontinued (Entered in Error) 24 hr isosorbide mononitrate 30 mg extended release oral tablet (6 sources) Nitrate Vasodilator Start: 04-21-2022 End: 04-22-2022 take 60 mg by mouth once daily 60 mg, oral, Daily, First dose on Sun04/21/22 at 0900 Do not crush or chew. Start: 01-04-2022 End: 01-06-2022 take 60 mg by mouth once daily 60 mg, oral, Daily, Fir st dose on Sun01/04/22 at 0900 Do not crush or chew. Start: 01-08-2021 take 60 mg by mouth once daily 60 mg, oral, Daily, First dose on 01/08/21 at 0900 Do not crush or chew. take 1 tablet by arin th once daily isosorbide mononitrate (IMDUR) 60 mg 24 hr tablet Take 1 tablet (60 mg total) by mouth 1 (one) time each day. Do not crush or chew. 0 Active ketoconazole 20 mg/ml topical cream (2 sources) Azole Antifungal End: 12-29-2021 ketoconazole (NIZORAL) 2 % cream Apply 1 application topically 2 (two) times a day. 0 12/29/2021 Discontinued (Entered in Error) magnesium hydroxide 80 mg/ml oral suspension (3 sources) Start: 04-20-2022 End: 04-22-2022 magnesium hydroxide (MILK OF MAGNESIA) 400 mg/5 mL suspension 30 mL Start: 01-04-2022 End: 01-06-2022 magnesium hydroxide (MILK OF MAGNESIA) 400 mg/5 mL suspension 30 mL Start: 01-08-2021 magnesium hydr oxide (MILK OF MAGNESIA) 400 mg/5 mL suspension 30 mL 24 hr metoprolol succinate 50 mg extended release oral tablet (6 sources) beta-Adrenergic Cathryn Start: 04-20-2022 End: 04-22-2022 take 100 mg by mouth twice daily 100 mg, oral, 2 times daily, First dose on Yvette 04/20/22 at 2100 Do not crush or chew. Start: 01-03-2022 End: 01-06-2022 take 100 mg by mouth twice daily 100 mg, oral, 2 times daily, First dose on Sun01/03/22 at 2100 Regarding Beta-Blockers - hold if SBP < 100 or HR < 55 Do not crush or chew. Start: 01-08-2021 take 100 mg by mouth once daily 100 mg, oral, Daily, First dose on 01/08/21 at 0900 Do not crush or chew. take 1 tablet by arin th twice daily metoprolol succinate (TOPROL-XL) 100 mg 24 hr tablet Take 1 tablet (100 mg total) by mouth 2 (two) times a day. Do not crush or chew. 0 Active take 1 tablet by arin th once daily metoprolol succinate (TOPROL-XL) 100 mg 24 hr tablet Take 100 mg by mouth 1 (one) time each day. Do not crush or chew. 0 Active Naloxone (2 sources) Opioid Antagonist Start: 04-20-2022 End: 04-22-2022 naloxone (NARCAN) injection 0.4 mg Start: 01-03-2022 End: 01-06-2022 naloxone (NARCAN) injection 0.4 mg ondansetron 4 mg disintegrating oral tablet (5 sources) Serotonin-3 Receptor Antagonist Start: 04-20-2022 End: 04-22-2022 take 1 tablet intravenously every eight hours as needed for nausea 4 mg, oral, Every 8 hours PRN, vomiting, nausea, Starting on Yvette 04/20/22 at 1652, Recovery & On Unit -Give IV if patient is unable to take orally. -If inadequate response within 30 minutes, proceed to next-line agent or contact provider if no further options ordered. For ODT tablets: -Do not remove from blister pack until just before administering. -Patient should allow tablet to dissolve on tongue. Start: 04-20-2022 End: 04-22-2022 take 4 mg intravenously every six hours as needed ondansetron (PF) (ZOFRAN) injection 4 mg Start: 04-20-2022 End: 04-27-2022 take 1 tablet by mouth every eight hours for nausea ondansetron (ZOFRAN) 4 mg tablet Take 1 tablet (4 mg total) by mouth every 8 (eight) hours if needed for nausea or vomiting for up to 7 days. 20 tablet 0 04/20/2022 04/27/2022 Active Start: 01-03-2022 End: 01-06-2022 take 4 mg intravenously every six hours as needed ondansetron (PF) (ZOFRAN) injection 4 mg Start: 01-08-2021 take 4 mg intravenou sly every six hours as needed ondansetron (PF) (ZOFRAN) injection 4 mg oxyCODONE (8 sources) Opioid Agonist Start: 04-21-2022 End: 04-22-2022 oxyCODONE (ROXICODONE) immed iate release tablet 10 mg Start: 04-20-2022 End: 04-20-2022 oxyCODONE (ROXICODONE) immed iate release tablet 10 mg Start: 04-20-2022 End: 04-27-2022 oxyCODONE (ROXICODONE) 5 mg immediate release tablet Take 1-2 tablets (5-10 mg total) by mouth every 4 (four) hours if needed for moderate pain or severe pain for up to 7 days. Dx: Z96.6 Max Daily Amount: 60 mg 40 tablet 0 04/20/2022 04/27/2022 Active Start: 01-06-2022 End: 01-06-2022 oxyCODONE (ROXICODONE) immed iate release tablet 5 mg Start: 01-08-2021 End: 01-06-2022 take 1 tablet by mouth every four to six hours as needed oxyCODONE (ROXICODONE) 5 mg immediate release tablet 1-2 tabs PO q4-6hrs PRN moderate to severe pain 40 tablet 0 01/08/2021 01/06/2022 Discontinued (Stop Taking at Discharge) Start: 01-08-2021 take 1 tablet by arin every six hours as needed oxyCODONE (ROXICODONE) immediate release tablet 5 mg End: 04-22-2022 oxyCODONE (ROXICODONE) 5 mg immediate release tablet 1-2 tablets (5-10 mg total) 1 (one) time each day if needed (pain). 0 04/22/2022 Discontinued (Stop Taking at Discharge) Oxygen Therapy, Adult (3 sources) Start: 04-20-2022 End: 04-22-2022 Oxygen Therapy, Adult Start: 01-03-2022 End: 01-06-2022 Oxygen Therapy, Adult Start: 01-08-2021 Oxygen Therapy , Adult polyethylene glycol 3350 36787 mg powder for oral solution (6 sources) Osmotic Laxative Start: 04-20-2022 End: 04-22-2022 polyethylene glycol (MIRALAX) packet 17 g Start: 01-08-2021 End: 04-18-2022 polyethylene glycol (MIRALAX ) packet 17 g microencapsulated potassium chloride 10 meq extended release oral tablet (4 sources) Start: 04-20-2022 End: 04-22-2022 10 mEq, oral, 2 times daily, First dose on Yvette 04/20/22 at 2100 Tablet may be swallowed whole (do not crush/chew/suck on) OR broken in half and each half swallowed separately OR dissolved (whole tablet) in ~4 ounces of water (allow ~2 minutes to dissolve, stir well and administer immediately). Start: 01-04-2022 End: 01-06-2022 10 mEq, oral, 2 times daily, First dose on 01/04/22 at 0900 Tablet may be swallowed whole (do not crush/chew/suck on) OR broken in half and each half swallowed separately OR dissolved (whole tablet) in ~4 ounces of water (allow ~2 minutes to dissolve, stir well and administer immediately). take [address] [facility] twice daily potassium chloride (MICRO-K) 10 mEq CR capsule Take 1 capsule (10 mEq total) by mouth 2 (two) times a day. 0 Active promethazine hydrochloride 25 mg rectal suppository (9 sources) Phenothiazine Start: 04-20-2022 End: 04-22-2022 take 1 tablet by mouth every six hours as needed promethazine (PHENERGAN) tablet 12.5 mg Start: 04-20-2022 End: 04-22-2022 take 25 mg rectal route every six hours as needed promethazine (PHENERGAN) suppository 25 mg Start: 01-03-2022 End: 01-06-2022 take 1 tablet by mouth every six hours as needed promethazine (PHENERGAN) tablet 25 mg Start: 01-03-2022 End: 01-06-2022 take 25 mg rectal route every six hours as needed promethazine (PHENERGAN) suppository 25 mg Start: 01-08-2021 promethazine ( PHENERGAN) suppository 25 mg Start: 01-08-2021 End: 01-08-2021 promethazine (PHENERGAN) tab let 25 mg take [address] [facility] every six hours as needed promethazine (PHENERGAN) 25 mg tablet Take 1 tablet (25 mg total) by mouth every 6 (six) hours if needed for nausea or vomiting. 0 Active sennosides, detention 8.6 mg oral tablet (1 source) Start: 01-03-2022 End: 01-06-2022 senna (SENOKOT) tablet 8.6 mg Sodium Chloride (1 source) Start: 04-20-2022 End: 04-22-2022 sodium chloride 0.9 % flush 10 mL sucralfate 1000 mg oral tablet (5 sources) Aluminum Complex Start: 01-08-2021 End: 04-22-2022 1 g, oral, 4 times daily before meals and nightly, First dose on Sun04/20/22 at 2200 temazepam 7.5 mg oral capsule (6 sources) Benzodiazepine Start: 04-20-2022 End: 04-22-2022 take 1 tablet by mouth once daily for vomiting 30 mg, oral, Nightly, First dose on Sun04/20/22 at 2100 HAZARDOUS Drug Precautions - Low Risk (Category A/NIOSH Group 3) Reproductive Risk Only: - Single pair of ASTM standard [id number] certified chemotherapy gloves - Eye protection (goggles or face shield) required only with a potential for facial contact (i.e. concern for spitting or vomiting of the dose during or after administration)&nb sp;- Staff at reproductive risk (actively trying to conceive, or may be become , and ): chemo certified gown and an N95 respirator required when crushing meds (crushing of tabs allowed only in closed pouches) or opening of capsules only for allowable dosage forms Start: 01-03-2022 End: 01-06-2022 take 1 tablet by mouth once daily for vomiting 30 mg, oral, Nightly, First dose on Sun01/03/22 at 2100 HAZARDOUS Drug Precautions - Low Risk (Category A/NIOSH Group 3) Reproductive Risk Only: - Single pair of ASTM standard [id number] certified chemotherapy gloves - Eye protection (goggles or face shield) required only with a potential for facial contact (i.e. concern for spitting or vomiting of the dose during or after administration) - Staff at reproductive risk (actively trying to conceive, or may be become , and ): chemo certified gown and an N95 respirator required when crushing meds (crushing of tabs allowed only in closed pouches) or opening of capsules only for allowable dosage forms Start: 01-08-2021 End: 02-06-2021 temazepam (RESTORIL) capsule 30 mg take 1 capsule by mo uth at bedtime temazepam (RESTORIL) 30 mg capsule Take 1 capsule (30 mg total) by mouth at bedtime. 0 Active traZODone hydrochloride 50 mg oral tablet (2 sources) Serotonin Reuptake Inhibitor Start: 04-20-2022 End: 04-22-2022 traZODone (DESYREL) tablet 50 mg Start: 01-08-2021 traZODone (DHRUV YREL) tablet 50 mg 24 hr venlafaxine 150 mg extended release oral capsule (15 sources) Serotonin and Norepinephrine Reuptake Inhibitor Start: 04-21-2022 End: 04-22-2022 take 1 capsule by mouth once daily 150 mg, oral, Daily, First dose on Sun04/21/22 at 0900 Capsule may be swallowed whole, or may be opened and its contents sprinkled on applesauce if consumed immediately without chewing. Do not crush or chew. Start: 04-21-2022 End: 04-22-2022 take 1 capsule by mouth once daily 75 mg, oral, Daily, First dose on Sun04/21/22 at 0900 Capsule may be swallowed whole, or may be opened and its contents sprinkled on applesauce if consumed immediately without chewing. Do not crush or chew. Start: 01-04-2022 End: 01-06-2022 take 1 capsule by mouth once daily 150 mg, oral, Daily, First dose on Sun01/04/22 at 0900 Capsule may be swallowed whole, or may be opened and its contents sprinkled on applesauce if consumed immediately without chewing. Do not crush or chew. Start: 01-04-2022 End: 01-06-2022 take 1 capsule by mouth once daily 75 mg, oral, Daily, First dose on Sun01/04/22 at 0900 Capsule may be swallowed whole, or may be opened and its contents sprinkled on applesauce if consumed immediately without chewing. Do not crush or chew. Start: 01-08-2021 End: 01-08-2021 take 75 mg by mouth once daily 75 mg, oral, Daily, First dose on Sun01/08/21 at 0900 Start: 11-16-2020 End: 01-08-2021 take 1 capsule by mouth once daily 150 mg, oral, Daily, First dose on 01/08/21 at 0930 Capsule may be swallowed whole, or may be opened and its contents sprinkled on applesauce if consumed immediately without chewing. Do not crush or chew. Start: 11-16-2020 End: 01-08-2021 take 1 capsule by mouth once daily 75 mg, oral, Daily, First dose on 01/08/21 at 0930 Capsule may be swallowed whole, or may be opened and its contents sprinkled on applesauce if consumed immediately without chewing. Do not crush or chew. warfarin sodium 3 mg oral tablet (6 sources) Vitamin K Antagonist Start: 04-21-2022 End: 04-22-2022 warfarin (COUMADIN) tablet 3 mg Start: 01-08-2021 End: 01-06-2022 3 mg, oral, User Specified - warfarin ONLY at 1700 (Daily), First dose on Sun01/03/22 at 1700 Daily in the evening HAZARDOUS Drug Precautions - Low Risk (Category A/NIOSH Group 3) Reproductive Risk Only: - Single pair of ASTM standard [id number] certified chemotherapy gloves - Eye protection (goggles or face shield) required only with a potential for facial contact (i.e. concern for spitting or vomiting of the dose during or after administration) - Staff at reproductive risk (actively trying to conceive, or may be become , and ): chemo certified gown and an N95 respirator required when crushing meds (crushing of tabs allowed only in closed pouches) or opening of capsules only for allowable dosage forms. IF RECEIVING ENTERAL NUTRITION: Hold tube feeds at least 1 hour before and 1 hour after administration of warfarin. Indication for use of Warfarin: VTE Prophylaxis (INR Target: 2-3) Problems Active Problems Problem Classification Problem Date Documented Date Episodic/Chronic Anxiety disorders (1 source) Anxiety disorder, unspecified; Translations: [ANXIETY DISORDER UNSPECIFIED] Onset: 08-25-2022 Chronic Chronic obstructive pulmonary disease and bronchiectasis (1 source) Chronic obstructive pulmonary disease, unspecified; Translations: [COPD UNSPECIFIED] Onset: 08-25-2022 Chronic Disorders of lipid metabolism (1 source) Hyperlipidemia, unspecified; Translations: [HYPERLIPIDEMIA UNSPECIFIED] Onset: 08-25-2022 Chronic Esophageal disorders (1 source) Gastro-esophageal reflux disease without esophagitis; Translations: [GERD WITHOUT ESOPHAGITIS] Onset: 08-25-2022 Chronic Essential hypertension (1 source) Essential (primary) hypertension; Translations: [ESSENTIAL PRIMARY HYPERTENSION] Onset: 08-25-2022 Chronic Genitourinary symptoms and ill-defined conditions (1 source) Personal history of urinary (tract) infections; Translations: [PERS HX URINARY TRACT INFECTIONS] Onset: 08-25-2022 Episodic Joint disorders and dislocations; trauma-related (1 source) Unspecified internal derangement of unspecified knee; Translations: [Unspecified internal derangement of unspecified knee] Onset: 05-02-2022 Chronic Mood disorders (1 source) Major depressive disorder, single episode, unspecified; Translations: [MAGY DEPRESS D/O SINGLE EPIS UNS] Onset: 12-19-2021 Chronic Mood disorders (1 source) Mood disorders; Translations: [DEPRESSION UNSPECIFIED] Onset: 08-25-2022 Osteoarthritis (8 sources) Osteoarthritis of right knee joint; Translations: [Unilateral primary osteoarthritis, right knee] Onset: 01-03-2022 Chronic Other acquired deformities (1 source) Flexion deformity, left knee; Translations: [Flexion deformity, left knee] Onset: 02-19-2023 Episodic Other aftercare (1 source) 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; Translations: [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 DRUG THERAPY] Onset: 08-25-2022 Episodic Other aftercare (1 source) 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; Translations: [MARINE FIREFIGHTER CURRNT USE ANTICOAGULANTS] Onset: 08-25-2022 Episodic Other connective tissue disease (3 sources) History of total knee arthroplasty; Translations: [Presence of right artificial knee joint] Onset: 01-03-2022 Chronic Other connective tissue disease (1 source) Presence of artificial hip joint, bilateral; Translations: [PRESENCE ARTIFICIAL HIP JOINT BILAT] Onset: 08-25-2022 Chronic Other ear and sense organ disorders (1 source) Unspecified otitis externa, right ear; Translations: [UNS OTITIS EXTERNA RT EAR] Onset: 08-25-2022 Chronic Other ear and sense organ disorders (3 sources) Otalgia, right ear; Translations: [OTALGIA RIGHT EAR] Onset: 08-23-2022 Episodic Other lower respiratory disease (1 source) Personal history of pneumonia (recurrent); Translations: [PERSONAL HX OF PNEUMONIA RECURRENT] Onset: 08-25-2022 Episodic Pulmonary heart disease (2 sources) Personal history of pulmonary embolism; Translations: [Other pulmonary embolism without acute cor pulmonale] Onset: 03-04-2022 Episodic Residual codes; unclassified (1 source) Acquired absence of both cervix and uterus; Translations: [ACQUIRED ABSENCE BOTH CERVIX AND UTERUS] Onset: 08-25-2022 Episodic Residual codes; unclassified (1 source) Insomnia, unspecified; Translations: [INSOMNIA UNSPECIFIED] Onset: 08-25-2022 Episodic Rheumatoid arthritis and related disease (1 source) Rheumatoid arthritis, unspecified; Translations: [RHEUMATOID ARTHRITIS UNSPECIFIED] Onset: 08-25-2022 Chronic Substance-related disorders (1 source) Nicotine dependence, cigarettes, uncomplicated; Translations: [NICOTINE DEPEND CIGARETTES UNCOMP] Onset: 06-07-2022 Chronic Unclassified (1 source) PERSONAL HISTORY OF COVID-19; Translations: [PERSONAL HISTORY OF COVID-19] Onset: 08-25-2022 Unclassified (4 sources) CONTACT W/AND (SUSP) EXPOS COVID-19; Translations: [CONTACT W/AND (SUSP) EXPOS COVID-19] Onset: 04-24-2022 Past or Other Problems Problem Classification Problem Date Documented Date Episodic/Chronic Abdominal pain (1 source) Unspecified abdominal pain; Translations: [UNSPECIFIED ABDOMINAL PAIN] Onset: 06-07-2022 Episodic Acute and unspecified renal failure (1 source) Acute kidney failure, unspecified; Translations: [ACUTE KIDNEY FAILURE UNSPECIFIED] Onset: 12-19-2021 Episodic Acute posthemorrhagic anemia (1 source) Acute posthemorrhagic anemia; Translations: [ACUTE POSTHEMORRHAGIC ANEMIA] Onset: 06-07-2022 Episodic Bacterial infection; unspecified site (1 source) Personal history of Methicillin resistant Staphylococcus aureus infection; Translations: [PERS HX METHICILLIN RSIST STAPH INF] Onset: 09-19-2022 Episodic Biliary tract disease (1 source) Other specified diseases of gallbladder; Translations: [OTHER SPEC DISEASES GALLBLADDER] Onset: 06-07-2022 Episodic Complication of device; implant or graft (5 sources) Mechanical complication of internal joint prosthesis; Translations: [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, initial encounter] Onset: 04-20-2022 Episodic Deficiency and other anemia (1 source) Iron deficiency anemia, unspecified; Translations: [IRON DEFICIENCY ANEMIA UNSPECIFIED] Onset: 06-07-2022 Episodic Fluid and electrolyte disorders (2 sources) Dehydration; Translations: [DEHYDRATION] Onset: 12-19-2021 Episodic Gastritis and duodenitis (1 source) Acute gastritis with bleeding; Translations: [ACUTE GASTRITIS WITH BLEEDING] Onset: 06-07-2022 Episodic Malaise and fatigue (1 source) Other fatigue; Translations: [OTHER FATIGUE] Onset: 12-19-2021 Episodic Nausea and vomiting (4 sources) Nausea with vomiting, unspecified; Translations: [NAUSEA WITH VOMITING UNSPECIFIED] Onset: 05-22-2022 Episodic Noninfectious gastroenteritis (1 source) Noninfective gastroenteritis and colitis, unspecified; Translations: [NONINFECTIVE GE AND COLITIS UNS] Onset: 12-19-2021 Episodic Other aftercare (4 sources) Encounter for therapeutic drug level monitoring; Translations: [ENC THERAPEUTC DRUG LEVL MONITORING] Onset: 01-31-2022 Episodic Other connective tissue disease (1 source) Spontaneous rupture of extensor tendons, unspecified lower leg; Translations: [Spontaneous rupture of extensor tendons, unspecified lower leg] Onset: 04-30-2022 Episodic Other injuries and conditions due to external causes (1 source) History of falling; Translations: [HISTORY OF FALLING] Onset: 12-19-2021 Episodic Other lower respiratory disease (1 source) Shortness of breath; Translations: [SHORTNESS OF BREATH] Onset: 06-07-2022 Episodic Other non-traumatic joint disorders (1 source) Pain in unspecified knee; Translations: [PAIN IN UNSPECIFIED KNEE] Onset: 12-19-2021 Episodic Other non-traumatic joint disorders (4 sources) Pain in right knee; Translations: [PAIN IN RIGHT KNEE] Onset: 10-21-2021 Episodic Other non-traumatic joint disorders (1 source) Effusion, right knee; Translations: [EFFUSION RIGHT KNEE] Onset: 10-25-2021 Episodic Other screening for suspected conditions (not mental disorders or infectious disease) (1 source) Other specified abnormal findings of blood chemistry; Translations: [OTH SPEC ABNORMAL FINDINGS BLD CHEM] Onset: 06-07-2022 Episodic Residual codes; unclassified (4 sources) Patient encounter status; Translations: [Pain, unspecified] Onset: 01-07-2021 Episodic Residual codes; unclassified (1 source) Sleep disorder, unspecified; Translations: [SLEEP DISORDER UNSPECIFIED] Onset: 06-07-2022 Episodic Residual codes; unclassified (4 sources) Altered mental status, unspecified; Translations: [ALTERED MENTAL STATUS UNSPECIFIED] Onset: 12-12-2021 Episodic Sprains and strains (1 source) Strain of other muscle(s) and tendon(s) at lower leg level, left leg, initial encounter; Translations: [Strain of other muscle(s) and tendon(s) at lower leg level, left leg, initial encounter] Onset: 04-23-2022 Episodic Syncope (1 source) Syncope and collapse; Translations: [SYNCOPE AND COLLAPSE] Onset: 12-19-2021 Episodic Unclassified (1 source) CONTACT W/AND (SUSP) EXPOS COVID-19; Translations: [CONTACT W/AND (SUSP) EXPOS COVID-19] Onset: 04-18-2022 Results Test Name Value Interpretation Reference Range Facility CRP [Mass/Vol]on 02-19-2023 C-Reactive Protein 1.0 mg/dL Normal 0.0-1.0 [facility] Comment on above: Performed By: #### 1 [id number] #### [facility] LAB [address] [place] [address] ESR (Bld) [Velocity]on 02-19 Basophils (Bld) [#/Vol] 0.09 10*3/uL Normal 0.00-0.20 [facility] Comment on above: Performed By: #### 5 75-1 #### [facility] [address] [place] [address] Basophils/100 WBC (Bld) 1.1 % Normal 0.0-2.0 [facility] Comment on above: Performed By: #### 5 75-1 #### [facility] [place] [facility] [address] [place] [address] Eosinophils (Bld) [#/Vol] 0.17 10*3/uL Normal 0.00-0.70 [facility] Comment on above: Performed By: #### 75-1 #### [facility] [place] [facility] [address] [place] [address] Eosinophils/100 WBC (Bld) 2.0 % Normal 0.0-7.0 [facility] Comment on above: Performed By: #### 75-1 #### [facility] [place] [facility] [address] [place] [address] Erythrocyte distribution width (RBC) [Ratio] 13.5 % Normal 11.0-14.8 [facility] Comment on above: Performed By: #### 75-1 #### [facility] [address] [place] [address] Hematocrit (Bld) [Volume fraction] 39.9 % Normal 34.3-47.9 [facility] Comment on above: Performed By: #### 75-1 #### [facility] [place] [facility] [address] [place] [address] Hemoglobin (Bld) [Mass/Vol] 12.7 g/dL Normal 12.0-16.0 [facility] Comment on above: Performed By: #### 5 75-1 #### [facility] [place] [facility] [address] [place] [address] Immature granulocytes (Bld) [#/Vol] 0.02 10*3/uL Normal 0.00-0.10 [facility] Comment on above: Performed By: #### 5 75-1 #### [facility] [place] [facility] [address] [place] [address] Immature granulocytes/100 WBC (Bld) 0.2 % Normal 0.0-1.2 [facility] Comment on above: Performed By: #### 5 75-1 #### [facility] [place] [facility] [address] [place] [address] Lymphocytes (Bld) [#/Vol] 2.55 10*3/uL Normal 1.00-4.80 [facility] Comment on above: Performed By: #### 5 75-1 #### [facility] [place] [facility] [address] [place] [address] Lymphocytes/100 WBC (Bld) 30.6 % Normal 17.9-49.6 [facility] Comment on above: Performed By: #### 5 75-1 #### [facility] [place] [facility] [address] [place] [address] MCH 31.4 pcg Normal 27.0-34.0 [facility] Comment on above: Performed By: #### 5 75-1 #### [facility] [address] [place] [address] MCHC (RBC) [Mass/Vol] 31.8 g/dL Normal 30.8-35.3 Arin [facility] Comment on above: Performed By: #### 5 75-1 #### [facility] [address] [place] [address] MCV (RBC) [Entitic vol] 98.5 fL High 80.0-97.0 [facility] Comment on above: Performed By: #### 5 75-1 #### [facility] [place] [facility] [address] [place] [address] Monocytes (Bld) [#/Vol] 0.57 10*3/uL Normal 0.00-0.90 [facility] Comment on above: Performed By: #### 5 75-1 #### [facility] [place] [facility] [address] [place] [address] Monocytes/100 WBC (Bld) 6.9 % Normal 0.0-12.0 [facility] Comment on above: Performed By: #### 5 75-1 #### [facility] [place] [facility] [address] [place] [address] Neutrophils Absolute 4.92 K/mcL Normal 1.80-7.70 [facility] Comment on above: Performed By: #### 5 75-1 #### [facility] [place] [facility] [address] [place] [address] Neutrophils/100 WBC (Bld) 59.2 % Normal 38.1-75.5 [facility] Comment on above: Performed By: #### 5 75-1 #### [facility] [place] [facility] [address] [place] [address] Platelet mean volume (Bld) [Entitic vol] 11.5 fL Normal 6.2-12.1 [facility] Comment on above: Performed By: #### 5 75-1 #### [facility] [place] [facility] [address] [place] [address] Platelets (Bld) [#/Vol] 262 10*3/uL Normal 142-424 [facility] Comment on above: Performed By: #### 5 75-1 #### [facility] [place] [facility] [address] [place] [address] RBC (Bld) [#/Vol] 4.05 10*6/uL Normal 3.74-5.34 [facility] Comment on above: Performed By: #### 5 75-1 #### [facility] [place] [facility] [address] [place] [address] WBC (Bld) [#/Vol] 8.3 10*3/uL Normal 4.6-10.2 [facility] Comment on above: Performed By: #### 5 75-1 #### [facility] [place] [facility] [address] [place] [address] CBC AUTO DIFFon 08-30-2022 BASO # 0.1 103/ul Normal 0.0-0.1 [facility] Comment on above: Performed By: #### C BC #### [facility] [address] [address] [address] Jeffrey Thomas Basophils/100 WBC (Bld) 0.9 % Normal 0.2-2.0 [facility] Comment on above: Performed By: #### C BC #### [facility] [address] [place] [address] Dr. Jeffrey Thomas EO # 0.2 103/ul Normal 0.0-0.[address] [facility] Comment on above: Performed By: #### C BC #### [facility] [address] [place] [address] Dr. Jeffrey Thomas Eosinophils/100 WBC (Bld) 3.9 % Normal 0.9-7.0 [facility] Comment on above: Performed By: #### C BC #### [facility] [address] [place] [address] Dr. Jeffrey Thomas Erythrocyte distribution width (RBC) [Ratio] 14.6 % Normal 11.0-15.0 [facility] Comment on above: Performed By: #### C BC #### [facility] [address] [place] [address] Dr. Jeffrey Thomas Hematocrit (Bld) [Volume fraction] 32.7 % Critically low 36.0-48.0 [facility] Comment on above: Performed By: #### C BC #### [facility] [address] [place] [address] Dr. Jeffrey Thomas Hemoglobin (Bld) [Mass/Vol] 10.3 g/dL Critically low 12.0-16.[address] [facility] Comment on above: Performed By: #### C BC #### [facility] [address] [place] [address] Dr. Jeffrey Thomas IG # 0.01 10e3/ul Normal 0.00-0.[address] [facility] Comment on above: Performed By: #### C BC #### [facility] [address] [place] [address] Dr. Jeffrey Thomas IG % 0.2 % Normal 0.0-0.[address] [facility] Comment on above: Performed By: #### C BC #### [facility] [address] [place] [address] Dr. Jeffrey Thomas LYMPH # 1.7 103/ul Normal 1.2-3.[address] [facility] Comment on above: Performed By: #### C BC #### [facility] [address] [place] [address] Dr. Jeffrey Thomas Lymphocytes/100 WBC (Bld) 30.8 % Normal 20.5-60.0 [facility] Comment on above: Performed By: #### C BC #### [facility] [address] [place] [address] Dr. Jeffrey Thomas MANUAL DIFF REQ NO Normal [facility] Comment on above: Performed By: #### C BC #### [facility] [address] [place] [address] Dr. Jeffrey Thomas MCH (RBC) [Entitic mass] 30.2 pg Normal 26.7-34.0 [facility] Comment on above: Performed By: #### C BC #### [facility] [address] [place] [address] Dr. Jeffrey Thomas MCHC (RBC) [Mass/Vol] 31.5 g/dL Normal 29.9-35.[address] [facility] Comment on above: Performed By: #### C BC #### [facility] [address] [place] [address] Dr. Jeffrey Thomas MCV (RBC) [Entitic vol] 95.9 fL Normal 81.0-99.0 [facility] Comment on above: Performed By: #### C BC #### [facility] [address] [place] [address] Dr. Jeffrey Thomas MONO # 0.4 103/ul Normal 0.3-0.[address] [facility] Comment on above: Performed By: #### C BC #### [facility] [address] [place] [address] Dr. Jeffrey Thomas Monocytes/100 WBC (Bld) 7.8 % Normal 1.7-12.[address] [facility] Comment on above: Performed By: #### C BC #### [facility] [address] [place] [address] Dr. Jeffrey Thomas NEUT # 3.2 103/ul Normal 1.4-6.5 [facility] Comment on above: Performed By: #### C BC #### [facility] [address] [place] [address] Dr. Jeffrey Thomas Neutrophils/100 WBC (Bld) 56.4 % Normal 43.0-75.0 [facility] Comment on above: Performed By: #### C BC #### [facility] [address] [place] [address] Dr. Jeffrey Thomas Platelet mean volume (Bld) [Entitic vol] 12.9 fL Normal 9.5-13.5 [facility] Comment on above: Performed By: #### C BC #### [facility] [address] [place] [address] Dr. Jeffrey Thomas PLT 149 103/ul Critically low 150-450 [facility] Comment on above: Performed By: #### C BC #### [facility] [address] [place] [address] Dr. Jeffrey Thomas RBC 3.41 106/ul Critically low 4.20-5.40 [facility] Comment on above: Performed By: #### C BC #### [facility] [address] [place] [address] Dr. Jeffrey Thomas WBC 5.6 103/ul Normal 4.0-11.0 [facility] Comment on above: Performed By: #### C BC #### [facility] [address] [place] [address] Dr. Jeffrey Thomas HEPATITIS PANEL, [facility] HBsAg Screen Negative Normal Negative [facility] Comment on above: Performed By: #### C MP #### [facility] [address] [place] [address] Dr. Jeffrey Thomas HCV AB Non-Reactive Normal Non Reactive [facility] Comment on above: Performed By: #### C MP #### [facility] [address] [place] [address] Dr. Jeffrey Thomas Hep A Ab, IgM Negative Normal Negative [facility] Comment on above: Performed By: #### C MP #### [facility] [address] [address] [address] Jeffrey Thomas Hep B Core Ab, IgM Negative Normal Negative [facility] Comment on above: Performed By: #### C MP #### [facility] [address] [place] [address] Dr. Jeffrey Thomas NM HEPATOBILIARY SCAN W EFon 08-30-2022 NM HEPATOBILIARY SCAN W EF EXAMINATION: NM HEPATOBILIARY SCAN W EF HISTORY: Elevated liver enzymes level , right upper quadrant pain, nausea and vomiting COMPARISON: Ultrasound single quadrant right upper 08/26/2022 TECHNIQUE: Radionuclide hepatobiliary imaging was performed after intravenous injection of 5.3 mCi Tc-99m DANIELLE derivative with sequential acquisitions every 1 minute for one hour. Hepatobiliary imaging with gallbladder ejection fraction analysis was then performed with sequential imaging every 1 minute for 60 minutes following ingestion of 8 oz. Ensure Plus. FINDINGS: LIVER: Normal, prompt and uniform radiotracer uptake and clearing. BILIARY DUCTS: Normal radioisotopic biliary excretion. GALLBLADDER: Normal with no evidence of cystic duct obstruction. INTESTINE: Normal with no evidence of common biliary ductal obstruction. EJECTION FRACTION: 45 % within 60 minutes. (Normal EF > 38%). OTHER: Negative. IMPRESSION: 1. Normal nuclear medicine HIDA scan. Electronically authenticated by: GARO CASILLAS Date: 2022-08-30 07:23 Normal [facility] PROF 14(COMP METB)on 023 Albumin [Mass/Vol] 2.5 g/dL Critically low 3.4-5.[address] [facility] Comment on above: Performed By: #### T 4LC #### [facility] [address] [place] [address] Dr. Jeffrey Thomas Albumin/Globulin [Mass ratio] 0.9 {ratio} Normal [facility] Comment on above: Performed By: #### T 4LC #### [facility] [address] [place] [address] Dr. Jeffrey Thomas ALP [Catalytic activity/Vol] 97 U/L Normal 46-116 [facility] Comment on above: Performed By: #### T 4LC #### [facility] [address] [place] [address] Dr. Jeffrey Thomas ALT [Catalytic activity/Vol] 39 U/L Normal 14-59 [facility] Comment on above: Performed By: #### T 4LC #### [facility] [address] [place] [address] Dr. Jeffrey Thomas Anion gap [Moles/Vol] 12.9 mmol/L Normal Th [facility] Comment on above: Performed By: #### T 4LC #### [facility] [address] [place] [address] Dr. Jeffrey Thomas AST [Catalytic activity/Vol] 19 U/L Normal 15-37 [facility] Comment on above: Performed By: #### T 4LC #### [facility] [address] [place] [address] Dr. Jeffrey Thomas Bilirubin [Mass/Vol] 0.2 mg/dL Normal 0.2-1.0 [facility] Comment on above: Performed By: #### T 4LC #### [facility] [address] [place] [address] Dr. Jeffrey Thomas Calcium [Mass/Vol] 8.2 mg/dL Critically low 8.5-10.1 [facility] Comment on above: Performed By: #### T 4LC #### [facility] [address] [place] [address] Dr. Jeffrey Thomas Chloride [Moles/Vol] 111 mmol/L Critically high 98-107 [facility] Comment on above: Performed By: #### T 4LC #### [facility] [address] [place] [address] Dr. Jeffrey Thomas CO2 [Moles/Vol] 24.2 mmol/L Normal 21.0-32.0 [facility] Comment on above: Performed By: #### T 4LC #### [facility] [address] [place] [address] Dr. Jeffrey Thomas Creatinine [Mass/Vol] 1.05 mg/dL Critically high 0.55-1.02 [facility] Comment on above: Performed By: #### T 4LC #### [facility] [address] [place] [address] Dr. Jeffrey Thomas EGFR-AF CZECH >60 Normal >=60 [facility] Comment on above: Performed By: #### T 4LC #### [facility] [address] [address] [address] Jeffrey Thomas EGFR-NON AF CZECH 53 mL/min/1.73m2 Critically low >=60 [facility] Comment on above: Performed By: #### T 4LC #### [facility] [address] [address] [address] Jeffrey Thomas Globulin (S) [Mass/Vol] 2.7 g/dL Normal [facility] Comment on above: Performed By: #### T 4LC #### [facility] [address] [address] [address] Jeffrey Thomas Glucose [Mass/Vol] 109 mg/dL Critically high 74-106 [facility] Comment on above: Performed By: #### T 4LC #### [facility] [address] [address] [address] Jeffrey Thomas Potassium [Moles/Vol] 4.1 mmol/L Normal 3.5-5.1 [facility] Comment on above: Performed By: #### T 4LC #### [facility] [address] [place] [address] Dr. Jeffrey Thomas Protein [Mass/Vol] 5.2 g/dL Critically low 6.4-8.2 Th [facility] Comment on above: Performed By: #### T 4LC #### [facility] [address] [address] [address] Jeffrey Thomas Sodium [Moles/Vol] 144 mmol/L Normal 136-145 [facility] Comment on above: Performed By: #### T 4LC #### [facility] [address] [address] [address] Jeffrey Thomas Urea nitrogen [Mass/Vol] 11.0 mg/dL Normal 7.0-18.0 [facility] Comment on above: Performed By: #### T 4LC #### [facility] [address] [address] [address] Jeffrey Thomas Urea nitrogen/Creatinine [Mass ratio] 10.5 mg/mg Normal [facility] Comment on above: Performed By: #### T 4LC #### [facility] [address] [place] [address] Dr. Jeffrey Thomas CBC AUTO DIFFon 08-29-2022 BASO # 0.1 103/ul Normal 0.0-0.1 [facility] Comment on above: Performed By: #### T 4LC #### [facility] [address] [place] [address] Dr. Jeffrey Thomas Basophils/100 WBC (Bld) 1.2 % Normal 0.2-2.0 [facility] Comment on above: Performed By: #### T 4LC #### [facility] [address] [place] [address] Dr. Jeffrey Thomas EO # 0.2 103/ul Normal 0.0-0.7 [facility] Comment on above: Performed By: #### T 4LC #### [facility] [address] [place] [address] Dr. Jeffrey Thomas Eosinophils/100 WBC (Bld) 4.1 % Normal 0.9-7.0 [facility] Comment on above: Performed By: #### T 4LC #### [facility] [address] [place] [address] Dr. Jeffrey Thomas Erythrocyte distribution width (RBC) [Ratio] 14.6 % Normal 11.0-15.0 [facility] Comment on above: Performed By: #### T 4LC #### [facility] [address] [place] [address] Dr. Jeffrey Thomas Hematocrit (Bld) [Volume fraction] 33.6 % Critically low 36.0-48.0 [facility] Comment on above: Performed By: #### T 4LC #### [facility] [address] [place] [address] Dr. Jeffrey Thomas Hemoglobin (Bld) [Mass/Vol] 10.3 g/dL Critically low 12.0-16.0 [facility] Comment on above: Performed By: #### T 4LC #### [facility] [address] [place] [address] Dr. Jeffrey Thomas IG # 0.01 10e3/ul Normal 0.00-0.03 [facility] Comment on above: Performed By: #### T 4LC #### [facility] [address] [place] [address] Dr. Jeffrey Thomas IG % 0.2 % Normal 0.0-0.5 [facility] Comment on above: Performed By: #### T 4LC #### [facility] [address] [place] [address] Dr. Jeffrey Thomas LYMPH # 1.7 103/ul Normal 1.2-3.8 [facility] Comment on above: Performed By: #### T 4LC #### [facility] [address] [place] [address] Dr. Jeffrey Thomas Lymphocytes/100 WBC (Bld) 34.4 % Normal 20.5-60.0 [facility] Comment on above: Performed By: #### T 4LC #### [facility] [address] [place] [address] Dr. Jeffrey Thomas MANUAL DIFF REQ NO Normal [facility] Comment on above: Performed By: #### T 4LC #### [facility] [address] [place] [address] Dr. Jeffrey Thomas MCH (RBC) [Entitic mass] 29.5 pg Normal 26.7-34.0 [facility] Comment on above: Performed By: #### T 4LC #### [facility] [address] [place] [address] Dr. Jeffrey Thomas MCHC (RBC) [Mass/Vol] 30.7 g/dL Normal 29.9-35.2 [facility] Comment on above: Performed By: #### T 4LC #### [facility] [address] [place] [address] Dr. Jeffrey Thomas MCV (RBC) [Entitic vol] 96.3 fL Normal 81.0-99.0 [facility] Comment on above: Performed By: #### T 4LC #### [facility] [address] [place] [address] Dr. Jeffrey Thomas MONO # 0.4 103/ul Normal 0.3-0.8 [facility] Comment on above: Performed By: #### T 4LC #### [facility] [address] [place] [address] Dr. Jeffrey Thomas Monocytes/100 WBC (Bld) 8.2 % Normal 1.7-12.0 [facility] Comment on above: Performed By: #### T 4LC #### [facility] [address] [place] [address] Dr. Jeffrey Thomas NEUT # 2.5 103/ul Normal 1.4-6.5 [facility] Comment on above: Performed By: #### T 4LC #### [facility] [address] [place] [address] Dr. Jeffrey Thomas Neutrophils/100 WBC (Bld) 51.9 % Normal 43.0-75.0 [facility] Comment on above: Performed By: #### T 4LC #### [facility] [address] [place] [address] Dr. Jeffrey Thomas Platelet mean volume (Bld) [Entitic vol] 12.5 fL Normal 9.5-13.5 [facility] Comment on above: Performed By: #### T 4LC #### [facility] [address] [place] [address] Dr. Jeffrey Thomas PLT 157 103/ul Normal 150-[address] [facility] Comment on above: Performed By: #### T 4LC #### [facility] [address] [place] [address] Dr. Jeffrey Thomas RBC 3.49 106/ul Critically low 4.20-5.40 [facility] Comment on above: Performed By: #### T 4LC #### [facility] [address] [place] [address] Dr. Jeffrey Thomas WBC 4.9 103/ul Normal 4.0-11.0 [facility] Comment on above: Performed By: #### T 4LC #### [facility] [address] [place] [address] Dr. Jeffrey Thomas PROF 14(COMP METB)on 023 Albumin [Mass/Vol] 2.6 g/dL Critically low 3.4-5.0 [facility] Comment on above: Performed By: #### C MP #### [facility] [address] [place] [address] Dr. Jeffrey Thomas Albumin/Globulin [Mass ratio] 1.0 {ratio} Normal [facility] Comment on above: Performed By: #### C MP #### [facility] [address] [address] [address] Jeffrey Thomas ALP [Catalytic activity/Vol] 94 U/L Normal 46-116 [facility] Comment on above: Performed By: #### C MP #### [facility] [address] [place] [address] Dr. Jeffrey Thomas ALT [Catalytic activity/Vol] 53 U/L Normal 14-59 [facility] Comment on above: Performed By: #### C MP #### [facility] [address] [place] [address] Dr. Jeffrey Thomas Anion gap [Moles/Vol] 11.2 mmol/L Normal Th [facility] Comment on above: Performed By: #### C MP #### [facility] [address] [place] [address] Dr. Jeffrey Thomas AST [Catalytic activity/Vol] 26 U/L Normal 15-37 [facility] Comment on above: Performed By: #### C MP #### [facility] [address] [place] [address] Dr. Jeffrey Thomas Bilirubin [Mass/Vol] 0.2 mg/dL Normal 0.2-1.0 [facility] Comment on above: Performed By: #### C MP #### [facility] [address] [place] [address] Dr. Jeffrey Thomas Calcium [Mass/Vol] 8.2 mg/dL Critically low 8.5-10.1 [facility] Comment on above: Performed By: #### C MP #### [facility] [address] [place] [address] Dr. Jeffrey Thomas Chloride [Moles/Vol] 114 mmol/L Critically high 98-107 [facility] Comment on above: Performed By: #### C MP #### [facility] [address] [address] [address] Jeffrey Thomas CO2 [Moles/Vol] 23.1 mmol/L Normal 21.0-32.0 [facility] Comment on above: Performed By: #### C MP #### [facility] [address] [address] [address] Jeffrey Thomas Creatinine [Mass/Vol] 0.95 mg/dL Normal 0.55-1.02 [facility] Comment on above: Performed By: #### C MP #### [facility] [address] [address] [address] Jeffrey Thomas EGFR-AF CZECH >60 Normal >=60 [facility] Comment on above: Performed By: #### C MP #### [facility] [address] [address] [address] Jeffrey Thomas EGFR-NON AF CZECH 59 mL/min/1.73m2 Critically low >=60 [facility] Comment on above: Performed By: #### C MP #### [facility] [address] [address] [address] Jeffrey Thomas Globulin (S) [Mass/Vol] 2.6 g/dL Normal [facility] Comment on above: Performed By: #### C MP #### [facility] [address] [address] [address] Jeffrey Thomas Glucose [Mass/Vol] 87 mg/dL Normal 74-106 [facility] Comment on above: Performed By: #### C MP #### [facility] [address] [address] [address] Jeffrey Thomas Potassium [Moles/Vol] 4.3 mmol/L Normal 3.5-5.1 [facility] Comment on above: Performed By: #### C MP #### [facility] [address] [address] [address] Jeffrey Thomas Protein [Mass/Vol] 5.2 g/dL Critically low 6.4-8.2 Th [facility] Comment on above: Performed By: #### C MP #### [facility] [address] [place] [address] Dr. Jeffrey Thomas Sodium [Moles/Vol] 144 mmol/L Normal 136-145 [facility] Comment on above: Performed By: #### C MP #### [facility] [address] [place] [address] Dr. Jeffrey Thomas Urea nitrogen [Mass/Vol] 10.0 mg/dL Normal 7.0-18.0 [facility] Comment on above: Performed By: #### C MP #### [facility] [address] [place] [address] Dr. Jeffrey Thomas Urea nitrogen/Creatinine [Mass ratio] 10.5 mg/mg Normal [facility] Comment on above: Performed By: #### C MP #### [facility] [address] [place] [address] Dr. Jeffrey Thomas CBC AUTO DIFFon 08-28-2022 BASO # 0.1 103/ul Normal 0.0-0.1 [facility] Comment on above: Performed By: #### T 4LC #### [facility] [address] [place] [address] Dr. Jeffrey Thomas Basophils/100 WBC (Bld) 1.2 % Normal 0.2-2.0 [facility] Comment on above: Performed By: #### T 4LC #### [facility] [address] [place] [address] Dr. Jeffrey Thomas EO # 0.3 103/ul Normal 0.0-0.7 [facility] Comment on above: Performed By: #### T 4LC #### [facility] [address] [place] [address] Dr. Jeffrey Thomas Eosinophils/100 WBC (Bld) 4.4 % Normal 0.9-7.0 [facility] Comment on above: Performed By: #### T 4LC #### [facility] [address] [place] [address] Dr. Jeffrey Thomas Erythrocyte distribution width (RBC) [Ratio] 14.8 % Normal 11.0-15.0 [facility] Comment on above: Performed By: #### T 4LC #### [facility] [address] [place] [address] Dr. Jeffrey Thomas Hematocrit (Bld) [Volume fraction] 33.5 % Critically low 36.0-48.0 [facility] Comment on above: Performed By: #### T 4LC #### [facility] [address] [place] [address] Dr. Jeffrey Thomas Hemoglobin (Bld) [Mass/Vol] 10.1 g/dL Critically low 12.0-16.0 [facility] Comment on above: Performed By: #### T 4LC #### [facility] [address] [place] [address] Dr. Jeffrey Thomas IG # 0.01 10e3/ul Normal 0.00-0.03 [facility] Comment on above: Performed By: #### T 4LC #### [facility] [address] [place] [address] Dr. Jeffrey Thomas IG % 0.2 % Normal 0.0-0.5 [facility] Comment on above: Performed By: #### T 4LC #### [facility] [address] [place] [address] Dr. Jeffrey Thomas LYMPH # 2.1 103/ul Normal 1.2-3.8 [facility] Comment on above: Performed By: #### 4LC #### [facility] [address] [place] [address] Dr. Jeffrey Thomas Lymphocytes/100 WBC (Bld) 35.1 % Normal 20.5-60.0 [facility] Comment on above: Performed By: #### T 4LC #### [facility] [address] [place] [address] Dr. Jeffrey Thomas MANUAL DIFF REQ NO Normal [facility] Comment on above: Performed By: #### T 4LC #### [facility] [address] [place] [address] Dr. Jeffrey Thomas MCH (RBC) [Entitic mass] 29.6 pg Normal 26.7-34.0 [facility] Comment on above: Performed By: #### T 4LC #### [facility] [address] [place] [address] Dr. Jeffrey Thomas MCHC (RBC) [Mass/Vol] 30.1 g/dL Normal 29.9-35.2 [facility] Comment on above: Performed By: #### T 4LC #### [facility] [address] [place] [address] Dr. Jeffrey Thomas MCV (RBC) [Entitic vol] 98.2 fL Normal 81.0-99.0 [facility] Comment on above: Performed By: #### T 4LC #### [facility] [address] [place] [address] Dr. Jeffrey Thomas MONO # 0.5 103/ul Normal 0.3-0.8 [facility] Comment on above: Performed By: #### 4LC #### [facility] [address] [place] [address] Dr. Jeffrey Thomas Monocytes/100 WBC (Bld) 7.7 % Normal 1.7-12.0 [facility] Comment on above: Performed By: #### 4LC #### [facility] [address] [place] [address] Dr. Jeffrey Thomas NEUT # 3.1 103/ul Normal 1.4-6.5 [facility] Comment on above: Performed By: #### 4LC #### [facility] [address] [place] [address] Dr. Jeffrey Thomas Neutrophils/100 WBC (Bld) 51.4 % Normal 43.0-75.[address] [facility] Comment on above: Performed By: #### T 4LC #### [facility] [address] [place] [address] Dr. Jeffrey Thomas Platelet mean volume (Bld) [Entitic vol] 12.1 fL Normal 9.5-13.5 [facility] Comment on above: Performed By: #### T 4LC #### [facility] [address] [place] [address] Dr. Jeffrey Thomas PLT 180 103/ul Normal 150-[address] [facility] Comment on above: Performed By: #### T 4LC #### [facility] [address] [place] [address] Dr. Jeffrey Thomas RBC 3.41 106/ul Critically low 4.20-5.40 [facility] Comment on above: Performed By: #### T 4LC #### [facility] [address] [address] [address] Jeffrey Thomas WBC 6.0 103/ul Normal 4.0-11.0 [facility] Comment on above: Performed By: #### T 4LC #### [facility] [address] [address] [address] Jeffrey Thomas PROF 14(COMP METB)on 023 Albumin [Mass/Vol] 2.8 g/dL Critically low 3.4-5.0 [facility] Comment on above: Performed By: #### C MP #### [facility] [address] [place] [address] Dr. Jeffrey Thomas Albumin/Globulin [Mass ratio] 1.1 {ratio} Normal [facility] Comment on above: Performed By: #### C MP #### [facility] [address] [place] [address] Dr. Jeffrey Thomas ALP [Catalytic activity/Vol] 96 U/L Normal 46-116 [facility] Comment on above: Performed By: #### C MP #### [facility] [address] [place] [address] Dr. Jeffrey Thomas ALT [Catalytic activity/Vol] 72 U/L Critically high 14-59 [facility] Comment on above: Performed By: #### C MP #### [facility] [address] [place] [address] Dr. Jeffrey Thomas Anion gap [Moles/Vol] 12.8 mmol/L Normal [facility] Comment on above: Performed By: #### C MP #### [facility] [address] [place] [address] Dr. Jeffrey Thomas AST [Catalytic activity/Vol] 39 U/L Critically high 15-37 [facility] Comment on above: Performed By: #### C MP #### [facility] [address] [address] [address] Jeffrey Thomas Bilirubin [Mass/Vol] 0.2 mg/dL Normal 0.2-1.0 [facility] Comment on above: Performed By: #### C MP #### [facility] [address] [address] [address] Jeffrey Thomas Calcium [Mass/Vol] 7.8 mg/dL Critically low 8.5-10.1 [facility] Comment on above: Performed By: #### C MP #### [facility] [address] [address] [address] Jeffrey Thomas Chloride [Moles/Vol] 115 mmol/L Critically high 98-107 [facility] Comment on above: Performed By: #### C MP #### [facility] [address] [place] [address] Dr. Jeffrey Thomas CO2 [Moles/Vol] 20.4 mmol/L Critically low 21.0-32.0 [facility] Comment on above: Performed By: #### C MP #### [facility] [address] [address] [address] Jeffrey Thomas Creatinine [Mass/Vol] 0.98 mg/dL Normal 0.55-1.02 [facility] Comment on above: Performed By: #### C MP #### [facility] [address] [place] [address] Dr. Jeffrey Thomas EGFR-AF CZECH >60 Normal >=60 [facility] Comment on above: Performed By: #### C MP #### [facility] [address] [place] [address] Dr. Jeffrey Thomas EGFR-NON AF CZECH 57 mL/min/1.73m2 Critically low >=60 [facility] Comment on above: Performed By: #### C MP #### [facility] [address] [place] [address] Dr. Jeffrey Thomas Globulin (S) [Mass/Vol] 2.6 g/dL Normal [facility] Comment on above: Performed By: #### C MP #### [facility] [address] [address] [address] Jeffrey Thomas Glucose [Mass/Vol] 80 mg/dL Normal 74-106 [facility] Comment on above: Performed By: #### C MP #### [facility] [address] [address] [address] Jeffrey Thomas Potassium [Moles/Vol] 4.2 mmol/L Normal 3.5-5.1 [facility] Comment on above: Performed By: #### C MP #### [facility] [address] [address] [address] Jeffrey Thomas Protein [Mass/Vol] 5.4 g/dL Critically low 6.4-8.2 Th [facility] Comment on above: Performed By: #### C MP #### [facility] [address] [place] [address] Dr. Jeffrey Thomas Sodium [Moles/Vol] 144 mmol/L Normal 136-145 [facility] Comment on above: Performed By: #### C MP #### [facility] [address] [place] [address] Dr. Jeffrey Thomas Urea nitrogen [Mass/Vol] 10.0 mg/dL Normal 7.0-18.0 [facility] Comment on above: Performed By: #### C MP #### [facility] [address] [place] [address] Dr. Jeffrey Thomas Urea nitrogen/Creatinine [Mass ratio] 10.2 mg/mg Normal [facility] Comment on above: Performed By: #### C MP #### [facility] [address] [place] [address] Dr. Jeffrey Thomas CBC AUTO DIFFon 08-27-2022 BASO # 0.1 103/ul Normal 0.0-0.1 [facility] Comment on above: Performed By: #### C MP #### [facility] [address] [place] [address] Dr. Jeffrey Thomas Basophils/100 WBC (Bld) 1.2 % Normal 0.2-2.0 [facility] Comment on above: Performed By: #### C MP #### [facility] [address] [place] [address] Dr. Jeffrey Thomas EO # 0.2 103/ul Normal 0.0-0.[address] [facility] Comment on above: Performed By: #### C MP #### [facility] [address] [place] [address] Dr. Jeffrey Thomas Eosinophils/100 WBC (Bld) 4.0 % Normal 0.9-7.[address] [facility] Comment on above: Performed By: #### C MP #### [facility] [address] [place] [address] Dr. Jeffrey Thomas Erythrocyte distribution width (RBC) [Ratio] 14.6 % Normal 11.0-15.[address] [facility] Comment on above: Performed By: #### C MP #### [facility] [address] [place] [address] Dr. Jeffrey Thomas Hematocrit (Bld) [Volume fraction] 35.8 % Critically low 36.0-48.0 [facility] Comment on above: Performed By: #### C MP #### [facility] [address] [place] [address] Dr. Jeffrey Thomas Hemoglobin (Bld) [Mass/Vol] 11.4 g/dL Critically low 12.0-16.[address] [facility] Comment on above: Performed By: #### C MP #### [facility] [address] [place] [address] Dr. Jeffrey Thomas IG # 0.01 10e3/ul Normal 0.00-0.[address] [facility] Comment on above: Performed By: #### C MP #### [facility] [address] [place] [address] Dr. Jeffrey Thomas IG % 0.2 % Normal 0.0-0.[address] [facility] Comment on above: Performed By: #### C MP #### [facility] [address] [place] [address] Dr. Jeffrey Thomas LYMPH # 2.0 103/ul Normal 1.2-3.[address] [facility] Comment on above: Performed By: #### C MP #### [facility] [address] [place] [address] Dr. Jeffrey Thomas Lymphocytes/100 WBC (Bld) 35.4 % Normal 20.5-60.0 [facility] Comment on above: Performed By: #### C MP #### [facility] [address] [place] [address] Dr. Jeffrey Thomas MANUAL DIFF REQ NO Normal [facility] Comment on above: Performed By: #### C MP #### [facility] [address] [place] [address] Dr. Jeffrey Thomas MCH (RBC) [Entitic mass] 29.9 pg Normal 26.7-34.[address] [facility] Comment on above: Performed By: #### C MP #### [facility] [address] [place] [address] Dr. Jeffrey Thomas MCHC (RBC) [Mass/Vol] 31.8 g/dL Normal 29.9-35.[address] [facility] Comment on above: Performed By: #### C MP #### [facility] [address] [place] [address] Dr. Jeffrey Thomas MCV (RBC) [Entitic vol] 94.0 fL Normal 81.0-99.0 [facility] Comment on above: Performed By: #### C MP #### [facility] [address] [place] [address] Dr. Jeffrey Thomas MONO # 0.5 103/ul Normal 0.3-0.[address] [facility] Comment on above: Performed By: #### C MP #### [facility] [address] [place] [address] Dr. Jeffrey Thomas Monocytes/100 WBC (Bld) 9.2 % Normal 1.7-12.[address] [facility] Comment on above: Performed By: #### C MP #### [facility] [address] [place] [address] Dr. Jeffrey Thomas NEUT # 2.8 103/ul Normal 1.4-6.[address] [facility] Comment on above: Performed By: #### C MP #### [facility] [address] [place] [address] Dr. Jeffrey Thomas Neutrophils/100 WBC (Bld) 50.0 % Normal 43.0-75.0 [facility] Comment on above: Performed By: #### C MP #### [facility] [address] [place] [address] Dr. Jeffrey Thomas Platelet mean volume (Bld) [Entitic vol] 12.0 fL Normal 9.5-13.5 [facility] Comment on above: Performed By: #### C MP #### [facility] [address] [address] [address] Jeffrey Thomas PLT 199 103/ul Normal 150-450 [facility] Comment on above: Performed By: #### C MP #### [facility] [address] [place] [address] Dr. Jeffrey Thomas RBC 3.81 106/ul Critically low 4.20-5.40 [facility] Comment on above: Performed By: #### C MP #### [facility] [address] [place] [address] Dr. Jeffrey Thomas WBC 5.7 103/ul Normal 4.0-11.0 [facility] Comment on above: Performed By: #### C MP #### [facility] [address] [place] [address] Dr. Jeffrey Thomas LACTATE/LACTIC ACIDon 2022 Lactate [Moles/Vol] 0.6 mmol/L Normal 0.4-2.0 [facility] Comment on above: Performed By: #### C MP #### [facility] [address] [place] [address] Dr. Jeffrey Thomas Lactate [Moles/Vol] 2.8 mmol/L Critically high 0.4-2.0 [facility] Comment on above: Performed By: #### T 4LC #### [facility] [address] [place] [address] Dr. Jeffrey Thomas PROF 14(COMP METB)on 023 Albumin [Mass/Vol] 2.8 g/dL Critically low 3.4-5.0 [facility] Comment on above: Performed By: #### C MP #### [facility] [address] [place] [address] Dr. Jeffrey Thomas Albumin/Globulin [Mass ratio] 0.9 {ratio} Normal [facility] Comment on above: Performed By: #### C MP #### [facility] [address] [place] [address] Dr. Jeffrey Thomas ALP [Catalytic activity/Vol] 100 U/L Normal 46-116 [facility] Comment on above: Performed By: #### C MP #### [facility] [address] [place] [address] Dr. Jeffrey Thomas ALT [Catalytic activity/Vol] 102 U/L Critically high 14-59 [facility] Comment on above: Performed By: #### C MP #### [facility] [address] [place] [address] Dr. Jeffrey Thomas Anion gap [Moles/Vol] 17.0 mmol/L Normal [facility] Comment on above: Performed By: #### C MP #### [facility] [address] [place] [address] Dr. Jeffrey Thomas AST [Catalytic activity/Vol] 62 U/L Critically high 15-37 [facility] Comment on above: Performed By: #### C MP #### [facility] [address] [place] [address] Dr. Jeffrey Thomas Bilirubin [Mass/Vol] 0.3 mg/dL Normal 0.2-1.0 [facility] Comment on above: Performed By: #### C MP #### [facility] [address] [place] [address] Dr. Jeffrey Thomas Calcium [Mass/Vol] 8.1 mg/dL Critically low 8.5-10.1 [facility] Comment on above: Performed By: #### C MP #### [facility] [address] [place] [address] Dr. Jeffrey Thomas Chloride [Moles/Vol] 110 mmol/L Critically high 98-107 [facility] Comment on above: Performed By: #### C MP #### [facility] [address] [place] [address] Dr. Jeffrey Thomas CO2 [Moles/Vol] 18.6 mmol/L Critically low 21.0-32.0 [facility] Comment on above: Performed By: #### C MP #### [facility] [address] [address] [address] Jeffrey Thomas Creatinine [Mass/Vol] 1.43 mg/dL Critically high 0.55-1.02 [facility] Comment on above: Performed By: #### C MP #### [facility] [address] [address] [address] Jeffrey Thomas EGFR-AF CZECH 45 mL/min/1.73m2 Critically low >=60 [facility] Comment on above: Performed By: #### C MP #### [facility] [address] [address] [address] Jeffrey Thomas EGFR-NON AF CZECH 37 mL/min/1.73m2 Critically low >=60 [facility] Comment on above: Performed By: #### C MP #### [facility] [address] [address] [address] Jeffrey Thomas Globulin (S) [Mass/Vol] 3.0 g/dL Normal [facility] Comment on above: Performed By: #### C MP #### [facility] [address] [address] [address] Jeffrey Thomas Glucose [Mass/Vol] 141 mg/dL Critically high 74-106 T [facility] Comment on above: Performed By: #### C MP #### [facility] [address] [address] [address] Jeffrey Thomas Potassium [Moles/Vol] 3.6 mmol/L Normal 3.5-5.1 [facility] Comment on above: Performed By: #### C MP #### [facility] [address] [address] [address] Jeffrey Thomas Protein [Mass/Vol] 5.8 g/dL Critically low 6.4-8.2 Th [facility] Comment on above: Performed By: #### C MP #### [facility] [address] [address] [address] Jeffrey Thomas Sodium [Moles/Vol] 142 mmol/L Normal 136-145 [facility] Comment on above: Performed By: #### C ALE #### [facility] [address] [place] [address] Dr. Jeffrey Thomas Urea nitrogen [Mass/Vol] 22.0 mg/dL Critically high 7.0-18.0 [facility] Comment on above: Performed By: #### C ALE #### [facility] [address] [place] [address] Dr. Jeffrey Thomas Urea nitrogen/Creatinine [Mass ratio] 15.4 mg/mg Normal [facility] Comment on above: Performed By: #### C ALE #### [facility] [address] [place] [address] Dr. Jeffrey Thomas AMYLASEon 08-26-2022 Amylase [Catalytic activity/Vol] 40 U/L Normal 25-115 [facility] Comment on above: Performed By: #### C ALE #### [facility] [address] [place] [address] Dr. Jeffrey Thomas CARDIAC CHONG ADMITon 023 CK [Catalytic activity/Vol] 39 U/L Normal 26-192 [facility] Comment on above: Performed By: #### C JUANITO AGUILERA #### [facility] [address] [place] [address] Dr. Jeffrey Thomas CK.MB [Mass/Vol] 1.47 ng/mL Normal <=3.60 [facility] Comment on above: Performed By: #### C JUANITO AGUILERA #### [facility] [address] [place] [address] Dr. Jeffrey Thomas HSTROP 7.0 pg/mL Normal 4.0-51.3 [facility] Comment on above: Result Comment: CUT- OFF POINTS HAVE BEEN ESTABLISHED BASED ON THE FOURTH UNIVERSAL DEFINITIONS OF MYOCARDIAL INFARCTION. THE UPPER REFERENCE LIMIT (URL) OF TROPONIN, DEFINED THE 99TH PERCENTILE OF cTnI DISTRIBUTION IN A REFERENCE POPULATION, HAS BEEN CONFIRMED THE DECISION THRESHOLD FOR PR DIAGNOSIS. Performed By: #### C JUANITO AGUILERA #### [facility] [address] [place] [address] Dr. Jeffrey Thomas SHONNA 107 ng/mL Critically high 9-82 [facility] Comment on above: Performed By: #### C MP, CMADM #### [facility] [address] [place] [address] Dr. Jeffrey Thomas CBC AUTO DIFFon 08-26-2022 BASO # 0.1 103/ul Normal 0.0-0.1 [facility] Comment on above: Performed By: #### C MP #### [facility] [address] [address] [address] Jeffrey Thomas Basophils/100 WBC (Bld) 0.9 % Normal 0.2-2.0 [facility] Comment on above: Performed By: #### C MP #### [facility] [address] [place] [address] Dr. Jeffrey Thomas EO # 0.1 103/ul Normal 0.0-0.7 [facility] Comment on above: Performed By: #### C MP #### [facility] [address] [place] [address] Dr. Jeffrey Thomas Eosinophils/100 WBC (Bld) 0.9 % Normal 0.9-7.0 [facility] Comment on above: Performed By: #### C MP #### [facility] [address] [place] [address] Dr. Jeffrey Thomas Erythrocyte distribution width (RBC) [Ratio] 14.1 % Normal 11.0-15.0 [facility] Comment on above: Performed By: #### C MP #### [facility] [address] [place] [address] Dr. Jeffrey Thomas Hematocrit (Bld) [Volume fraction] 48.3 % Critically high 36.0-48.0 [facility] Comment on above: Performed By: #### C MP #### [facility] [address] [place] [address] Dr. Jeffrey Thomas Hemoglobin (Bld) [Mass/Vol] 15.4 g/dL Normal 12.0-16.0 [facility] Comment on above: Performed By: #### C MP #### [facility] [address] [place] [address] Dr. Jeffrey Thomas IG # 0.04 10e3/ul Critically high 0.00-0.03 [facility] Comment on above: Performed By: #### C MP #### [facility] [address] [place] [address] Dr. Jeffrey Thomas IG % 0.3 % Normal 0.0-0.5 [facility] Comment on above: Performed By: #### C MP #### [facility] [address] [place] [address] Dr. Jeffrey Thomas LYMPH # 1.2 103/ul Normal 1.2-3.8 [facility] Comment on above: Performed By: #### C MP #### [facility] [address] [place] [address] Dr. Jeffrey Thmoas Lymphocytes/100 WBC (Bld) 10.0 % Critically low 20.5-60.0 [facility] Comment on above: Performed By: #### C MP #### [facility] [address] [place] [address] Dr. Jeffrey Thomas MANUAL DIFF REQ NO Normal [facility] Comment on above: Performed By: #### C MP #### [facility] [address] [place] [address] Dr. Jeffrey Thomas MCH (RBC) [Entitic mass] 29.7 pg Normal 26.7-34.0 [facility] Comment on above: Performed By: #### C MP #### [facility] [address] [place] [address] Dr. Jeffrey Thomas MCHC (RBC) [Mass/Vol] 31.9 g/dL Normal 29.9-35.2 [facility] Comment on above: Performed By: #### C MP #### [facility] [address] [place] [address] Dr. Jeffrey Thomas MCV (RBC) [Entitic vol] 93.1 fL Normal 81.0-99.0 [facility] Comment on above: Performed By: #### C MP #### [facility] [address] [place] [address] Dr. Jeffrey Thomas MONO # 0.5 103/ul Normal 0.3-0.8 [facility] Comment on above: Performed By: #### C MP #### [facility] [address] [place] [address] Dr. Jeffrey Thomas Monocytes/100 WBC (Bld) 4.1 % Normal 1.7-12.0 [facility] Comment on above: Performed By: #### C MP #### [facility] [address] [place] [address] Dr. Jeffrey Thomas NEUT # 10.2 103/ul Critically high 1.4-6.5 [facility] Comment on above: Performed By: #### C MP #### [facility] [address] [place] [address] Dr. Jeffrey Thomas Neutrophils/100 WBC (Bld) 83.8 % Critically high 43.0-75.0 [facility] Comment on above: Performed By: #### C MP #### [facility] [address] [place] [address] Dr. Jeffrey Thomas Platelet mean volume (Bld) [Entitic vol] 12.2 fL Normal 9.5-13.5 [facility] Comment on above: Performed By: #### C MP #### [facility] [address] [place] [address] Dr. Jeffrey Thomas PLT 303 103/ul Normal 150-[address] [facility] Comment on above: Performed By: #### C MP #### [facility] [address] [place] [address] Dr. Jeffrey Thomas RBC 5.19 106/ul Normal 4.20-5.[address] [facility] Comment on above: Performed By: #### C MP #### [facility] [address] [place] [address] Dr. Jeffrey Thomas WBC 12.2 103/ul Critically high 4.0-11.0 [facility] Comment on above: Performed By: #### C MP #### [facility] [address] [place] [address] ABD/PELVIS WO CONon 08-26 CT ABD/PELVIS WO CON EXAM: CT ABD/PELVIS WO CON INDICATION: Small bowel obstruction. COMPARISON: CT abdomen pelvis 05/22/2022 TECHNIQUE: Multiple contiguous axial CT images of the abdomen and pelvis were obtained without the use of intravenous contrast. Sagittal and coronal reconstructions were performed. Dose reduction techniques were achieved by using: automated exposure control and/or adjustment of mA and /or kV according to patient size and/or use of iterative reconstruction technique. FINDINGS: Evaluation of visceral organs limited by noncontrast technique. LOWER CHEST: Clear lung bases. The heart is normal in size. No pericardial or pleural effusion. ABDOMEN AND PELVIS: Liver: Unremarkable. Biliary System: Normal gallbladder. No biliary ductal dilatation. Pancreas: Unremarkable. Spleen: Unremarkable. Adrenal Glands: Stable 3.7 x 2.9 cm left adrenal mass. Normal right adrenal gland. Urinary System: Unremarkable kidneys. No hydronephrosis. Bladder obscured by extensive metallic streak artifact from bilateral hip arthroplasties. Gastrointestinal Tract: Normal caliber bowel. No bowel wall thickening or inflammation. Reproductive organs: Hysterectomy. Vessels: Nonaneurysmal abdominal aorta with moderate atherosclerotic calcifications. Lymph Nodes: No adenopathy. Peritoneum: No ascites or pneumoperitoneum. MUSCULOSKELETAL: Soft tissues: Unremarkable soft tissues. Bones: No acute osseous abnormality or suspicious osseous lesion. Bilateral hip arthroplasties noted. IMPRESSION: 1. No evidence of bowel obstruction or other acute abdominal or pelvic process. 2. Stable left adrenal mass. Electronically authenticated by: SALVADOR POTTS Date: 2022-08-26 15:43 Normal [facility] LIPASEon 08-26-2022 Lipase [Catalytic activity/Vol] 27.0 U/L Critically low 73.0-393.0 [facility] Comment on above: Performed By: #### L ACT #### [facility] [address] [place] [address] Dr. Jeffrey Thomas PROF 14(COMP METB)on 023 Albumin [Mass/Vol] 3.7 g/dL Normal 3.4-5.0 [facility] Comment on above: Performed By: #### C ALE, BLAKEDM #### [facility] [address] [place], [place] [address] Dr. Jeffrey Thomas Albumin/Globulin [Mass ratio] 0.9 {ratio} Normal [facility] Comment on above: Performed By: #### C MP, CMADM #### [facility] [address] [place] [address] [address] Jeffrey Thomas ALP [Catalytic activity/Vol] 138 U/L Critically high 46-116 [facility] Comment on above: Performed By: #### C MP, CMADM #### [facility] [address] [address] [address] Jeffrey Thomas ALT [Catalytic activity/Vol] 174 U/L Critically high 14-59 [facility] Comment on above: Performed By: #### C MP, CMADM #### [facility] [address] [address] [address] Jeffrey Thomas Anion gap [Moles/Vol] 20.4 mmol/L Normal [facility] Comment on above: Performed By: #### C MP, CMADM #### [facility] [address] [address] [address] Jeffrey Thomas AST [Catalytic activity/Vol] 135 U/L Critically high 15-37 [facility] Comment on above: Performed By: #### C MP, CMADM #### [facility] [address] [address] [address] Jeffrey Thomas Bilirubin [Mass/Vol] 0.4 mg/dL Normal 0.2-1.0 [facility] Comment on above: Performed By: #### C MP, CMADM #### [facility] [address] [address] [address] Jeffrey Thomas Calcium [Mass/Vol] 9.1 mg/dL Normal 8.5-10.1 [facility] Comment on above: Performed By: #### C MP, CMADM #### [facility] [address] [address] [address] Jeffrey Thomas Chloride [Moles/Vol] 103 mmol/L Normal 98-107 [facility] Comment on above: Performed By: #### C MP, CMADM #### [facility] [address] [address] [address] Jeffrey Thomas CO2 [Moles/Vol] 18.5 mmol/L Critically low 21.0-32.0 [facility] Comment on above: Performed By: #### C MP, CMADM #### [facility] [address] [address] [address] Jeffrey Thomas Creatinine [Mass/Vol] 1.85 mg/dL Critically high 0.55-1.02 [facility] Comment on above: Performed By: #### C MP, CMADM #### [facility] [address] [place] [address] Dr. Jeffrey Thomas EGFR-AF CZECH 33 mL/min/1.73m2 Critically low >=60 [facility] Comment on above: Performed By: #### C MP, CMADM #### [facility] [address] [place] [address] Dr. Jeffrey Thomas EGFR-NON AF CZECH 27 mL/min/1.73m2 Critically low >=60 [facility] Comment on above: Performed By: #### C MP, CMADM #### [facility] [address] [place] [address] Dr. Jeffrey Thomas Globulin (S) [Mass/Vol] 4.0 g/dL Normal [facility] Comment on above: Performed By: #### C MP, CMADM #### [facility] [address] [place] [address] Dr. Jeffrey Thomas Glucose [Mass/Vol] 110 mg/dL Critically high 74-106 [facility] Comment on above: Performed By: #### C MP, CMADM #### [facility] [address] [place] [address] Dr. Jeffrey Thomas Potassium [Moles/Vol] 3.9 mmol/L Normal 3.5-5.1 [facility] Comment on above: Performed By: #### C MP, CMADM #### [facility] [address] [place] [address] Dr. Jeffrey Thomas Protein [Mass/Vol] 7.7 g/dL Normal 6.4-8.2 [facility] Comment on above: Performed By: #### C MP, CMADM #### [facility] [address] [place] [address] Dr. Jeffrey Thomas Sodium [Moles/Vol] 138 mmol/L Normal 136-145 [facility] Comment on above: Performed By: #### C JUANITO AGUILERA #### [facility] [address] [address] [address] Jeffrey Thomas Urea nitrogen [Mass/Vol] 32.0 mg/dL Critically high 7.0-18.0 [facility] Comment on above: Performed By: #### C JUANITO AGUILERA #### [facility] [address] [place], [place] [address] Dr. Jeffrey Thomas Urea nitrogen/Creatinine [Mass ratio] 17.3 mg/mg Normal [facility] Comment on above: Performed By: #### C ALE, JUANITO #### [facility] [address] [address] [address] Jeffrey Thomas US SINGLE QUAD RT UPPERon US SINGLE QUAD RT UPPER Ultrasound abdomen right upper quadrant HISTORY: Elevated liver enzymes level epigastric pain for several weeks with nausea and vomiting. COMPARISON: None. TECHNIQUE: Dedicated transabdominal right upper quadrant ultrasound was performed. FINDINGS: The gallbladder is distended and measures 11.5 cm in length, and without focal wall abnormality. There is no discrete gallstone identified. No sludge is seen. The gallbladder wall measures 2 mm in thickness. No pericholecystic fluid is seen, and the sonographic Henley's sign is negative. The proximal common bile duct measures 3 mm in diameter. There is no intrahepatic bile duct dilatation. Liver measures 18 cm. No discrete liver lesion. Antegrade flow of hepatic veins and hepatopedal flow the main portal vein. The visualized pancreas is normal. Portions of the pancreas are obscured by overlying bowel gas. The right kidney measures 9.1 x 4.0 x 4.5 cm. There is no hydronephrosis in the right kidney. There is no fluid in the right upper quadrant. IMPRESSION: 1. Distended gallbladder without gallstones, sludge, or sonographic evidence of acute cholecystitis. Gallbladder distention may be due to fasting state or can be seen with gallbladder dysfunction. Correlate with symptoms and consider nonemergent HIDA scan for further evaluation if the clinical picture remains uncertain. 2. Borderline hepatomegaly with normal caliber common bile duct at 3 mm. 3. Right kidney without hydronephrosis. Electronically authenticated by: LIDIA COLÓN Date: 2022-08-26 20:40 Normal [facility] CBC AUTO DIFFon 08-01-2022 BASO # 0.1 103/ul Normal 0.0-0.1 [facility] Comment on above: Performed By: #### T 4LC #### [facility] [address] [address] [address] Jeffrey Thomas Basophils/100 WBC (Bld) 1.3 % Normal 0.2-2.[address] [facility] Comment on above: Performed By: #### T 4LC #### [facility] [address] [address] [address] Jeffrey Thomas EO # 0.2 103/ul Normal 0.0-0.[address] [facility] Comment on above: Performed By: #### T 4LC #### [facility] [address] [address] [address] Jeffrey Thomas Eosinophils/100 WBC (Bld) 2.8 % Normal 0.9-7.0 [facility] Comment on above: Performed By: #### T 4LC #### [facility] [address] [address] [address] Jeffrey Thomas Erythrocyte distribution width (RBC) [Ratio] 15.9 % Critically high 11.0-15.0 [facility] Comment on above: Performed By: #### T 4LC #### [facility] [address] [address] [address] Jeffrey Thomas Hematocrit (Bld) [Volume fraction] 37.7 % Normal 36.0-48.0 [facility] Comment on above: Performed By: #### T 4LC #### [facility] [address] [place] [address] [address] Jeffrey Thomas Hemoglobin (Bld) [Mass/Vol] 11.5 g/dL Critically low 12.0-16.0 [facility] Comment on above: Performed By: #### T 4LC #### [facility] [address] [place] [address] [address] Jeffrey Thomas IG # 0.03 10e3/ul Normal 0.00-0.03 [facility] Comment on above: Performed By: #### T 4LC #### [facility] [address] [place] [address] Dr. Jeffrey Thomas IG % 0.4 % Normal 0.0-0.5 [facility] Comment on above: Performed By: #### T 4LC #### [facility] [address] [place] [address] Dr. Jeffrey Thomas LYMPH # 1.6 103/ul Normal 1.2-3.8 [facility] Comment on above: Performed By: #### T 4LC #### [facility] [address] [place] [address] Dr. Jeffrey Thomas Lymphocytes/100 WBC (Bld) 20.9 % Normal 20.5-60.0 [facility] Comment on above: Performed By: #### T 4LC #### [facility] [address] [place] [address] Dr. Jeffrey Thomas MANUAL DIFF REQ NO Normal [facility] Comment on above: Performed By: #### T 4LC #### [facility] [address] [place] [address] Dr. Jeffrey Thomas MCH (RBC) [Entitic mass] 30.0 pg Normal 26.7-34.0 [facility] Comment on above: Performed By: #### T 4LC #### [facility] [address] [place] [address] Dr. Jeffrey Thomas MCHC (RBC) [Mass/Vol] 30.5 g/dL Normal 29.9-35.2 [facility] Comment on above: Performed By: #### T 4LC #### [facility] [address] [place] [address] Dr. Jeffrey Thomas MCV (RBC) [Entitic vol] 98.4 fL Normal 81.0-99.0 [facility] Comment on above: Performed By: #### T 4LC #### [facility] [address] [place] [address] Dr. Jeffrey Thomas MONO # 0.7 103/ul Normal 0.3-0.8 [facility] Comment on above: Performed By: #### T 4LC #### [facility] [address] [address] [address] Jeffrey Thomas Monocytes/100 WBC (Bld) 8.7 % Normal 1.7-12.0 [facility] Comment on above: Performed By: #### T 4LC #### [facility] [address] [place] [address] Dr. Jeffrey Thomas NEUT # 5.2 103/ul Normal 1.4-6.5 [facility] Comment on above: Performed By: #### T 4LC #### [facility] [address] [place] [address] Dr. Jeffrey Thomas Neutrophils/100 WBC (Bld) 65.9 % Normal 43.0-75.0 [facility] Comment on above: Performed By: #### T 4LC #### [facility] [address] [place] [address] Dr. Jeffrey Thomas Platelet mean volume (Bld) [Entitic vol] 11.8 fL Normal 9.5-13.5 [facility] Comment on above: Performed By: #### 4LC #### [facility] [address] [place] [address] Dr. Jeffrey Thomas PLT 265 103/ul Normal 150-450 [facility] Comment on above: Performed By: #### 4LC #### [facility] [address] [place] [address] Dr. Jeffrey Thomas RBC 3.83 106/ul Critically low 4.20-5.40 [facility] Comment on above: Performed By: #### T 4LC #### [facility] [address] [place] [address] Dr. Jeffrey Thomas WBC 7.8 103/ul Normal 4.0-11.[address] [facility] Comment on above: Performed By: #### T 4LC #### [facility] [address] [place] [address] Dr. Jeffrey Thomas CULTURE BLOODon 08-01-2022 Microscopic examination of blood, culture Culture Observations: NO GROWTH AT 5 DAYS. Normal [facility] Comment on above: Performed By: #### A MM #### [facility] [address] [address] [address] Jeffrey Thomas PROF 14(COMP METB)on 023 Albumin [Mass/Vol] 3.4 g/dL Normal 3.4-5.0 [facility] Comment on above: Performed By: #### C MP #### [facility] [address] [place] [address] Dr. Jeffrey Thomas Albumin/Globulin [Mass ratio] 0.8 {ratio} Normal [facility] Comment on above: Performed By: #### C MP #### [facility] [address] [place] [address] Dr. Jeffrey Thomas ALP [Catalytic activity/Vol] 98 U/L Normal 46-116 [facility] Comment on above: Performed By: #### C MP #### [facility] [address] [place] [address] Dr. Jeffrey Thomas ALT [Catalytic activity/Vol] 18 U/L Normal 14-59 [facility] Comment on above: Performed By: #### C MP #### [facility] [address] [place] [address] Dr. Jeffrey Thomas Anion gap [Moles/Vol] 13.3 mmol/L Normal [facility] Comment on above: Performed By: #### C MP #### [facility] [address] [place] [address] Dr. Jeffrey Thomas AST [Catalytic activity/Vol] 21 U/L Normal 15-37 [facility] Comment on above: Performed By: #### C MP #### [facility] [address] [place] [address] Dr. Jeffrey Thomas Bilirubin [Mass/Vol] 0.2 mg/dL Normal 0.2-1.0 [facility] Comment on above: Performed By: #### C MP #### [facility] [address] [place] [address] Dr. Jeffrey Thomas Calcium [Mass/Vol] 9.2 mg/dL Normal 8.5-10.1 [facility] Comment on above: Performed By: #### C MP #### [facility] [address] [place] [address] [address] Jeffrey Thomas Chloride [Moles/Vol] 106 mmol/L Normal 98-107 [facility] Comment on above: Performed By: #### C MP #### [facility] [address] [place] [address] [address] Jeffrey Thomas CO2 [Moles/Vol] 23.8 mmol/L Normal 21.0-32.0 [facility] Comment on above: Performed By: #### C MP #### [facility] [address] [place] [address] [address] Jeffrey Thomas Creatinine [Mass/Vol] 1.07 mg/dL Critically high 0.55-1.02 [facility] Comment on above: Performed By: #### C MP #### [facility] [address] [place] [address] Dr. Jeffrey Thomas EGFR-AF CZECH >60 Normal >=60 [facility] Comment on above: Performed By: #### C MP #### [facility] [address] [address] [address] Jeffrey Thomas EGFR-NON AF CZECH 51 mL/min/1.73m2 Critically low >=60 [facility] Comment on above: Performed By: #### C MP #### [facility] [address] [place] [address] [address] Jeffrey Thomas Globulin (S) [Mass/Vol] 4.1 g/dL Normal [facility] Comment on above: Performed By: #### C MP #### [facility] [address] [address] [address] Jeffrey Thomas Glucose [Mass/Vol] 77 mg/dL Normal 74-106 [facility] Comment on above: Performed By: #### C MP #### [facility] [address] [place] [address] [address] Jeffrey Thomas Potassium [Moles/Vol] 5.1 mmol/L Normal 3.5-5.1 [facility] Comment on above: Performed By: #### C MP #### [facility] [address] [place] [address] [address] Jeffrey Thomas Protein [Mass/Vol] 7.5 g/dL Normal 6.4-8.2 [facility] Comment on above: Performed By: #### C MP #### [facility] [address] [place] [address] Dr. Jeffrey Thomas Sodium [Moles/Vol] 138 mmol/L Normal 136-145 [facility] Comment on above: Performed By: #### C MP #### [facility] [address] [place] [address] [address] Jeffrey Thomas Urea nitrogen [Mass/Vol] 36.0 mg/dL Critically high 7.0-18.0 [facility] Comment on above: Performed By: #### C MP #### [facility] [address] [place] [address] Dr. Jeffrey Thomas Urea nitrogen/Creatinine [Mass ratio] 33.6 mg/mg Normal [facility] Comment on above: Performed By: #### C MP #### [facility] [address] [place] [address] Dr. Jeffrey Thomas [facility] mm/hr Critically high <=30 [facility] Comment on above: Performed By: #### C MP #### [facility] [address] [place] [address] Dr. Jeffrey Thomas AMMONIAon 05-23-2022 Ammonia (P) [Moles/Vol] 18 umol/L Normal 11-[address] [facility] Comment on above: Performed By: #### C MP #### [facility] [address] [place] [address] Dr. Jeffrey Thomas AMYLASEon 05-23-2022 Amylase [Catalytic activity/Vol] 30 U/L Normal 25-115 [facility] Comment on above: Performed By: #### A MM #### [facility] [address] [place] [address] Dr. Jeffrey Thomas BNPon 05-23-2022 Natriuretic peptide B (Bld) [Mass/Vol] 1066.0 pg/mL Critically high <=900.0 [facility] Comment on above: Performed By: #### A MM #### [facility] [address] [address] [address] Jeffrey Thomas CBC AUTO DIFFon 05-23-2022 BASO # 0.1 103/ul Normal 0.0-0.1 [facility] Comment on above: Performed By: #### C MP #### [facility] [address] [address] [address] Jeffrey Thmoas Basophils/100 WBC (Bld) 1.1 % Normal 0.2-2.0 [facility] Comment on above: Performed By: #### C MP #### [facility] [address] [place] [address] Dr. Jeffrey Thomas EO # 0.2 103/ul Normal 0.0-0.7 [facility] Comment on above: Performed By: #### C MP #### [facility] [address] [place] [address] Dr. Jeffrey Thomas Eosinophils/100 WBC (Bld) 3.1 % Normal 0.9-7.0 [facility] Comment on above: Performed By: #### C MP #### [facility] [address] [place] [address] Dr. Jeffrey Thomas Erythrocyte distribution width (RBC) [Ratio] 17.2 % Critically high 11.0-15.0 [facility] Comment on above: Performed By: #### C MP #### [facility] [address] [place] [address] Dr. Jeffrey Thomas Hematocrit (Bld) [Volume fraction] 33.0 % Critically low 36.0-48.0 [facility] Comment on above: Performed By: #### C MP #### [facility] [address] [place] [address] Dr. Jeffrey Thomas Hemoglobin (Bld) [Mass/Vol] 10.3 g/dL Critically low 12.0-16.0 [facility] Comment on above: Performed By: #### C MP #### [facility] [address] [place] [address] Dr. Jeffrey Thomas IG # 0.02 10e3/ul Normal 0.00-0.03 [facility] Comment on above: Performed By: #### C MP #### [facility] [address] [place] [address] Dr. Jeffrey Thomas IG % 0.3 % Normal 0.0-0.5 [facility] Comment on above: Performed By: #### C MP #### [facility] [address] [place] [address] Dr. Jeffrey Thomas LYMPH # 1.8 103/ul Normal 1.2-3.8 [facility] Comment on above: Performed By: #### C MP #### [facility] [address] [place] [address] Dr. Jeffrey Thomas Lymphocytes/100 WBC (Bld) 27.8 % Normal 20.5-60.0 [facility] Comment on above: Performed By: #### C MP #### [facility] [address] [place] [address] Dr. Jeffrey Thomas MANUAL DIFF REQ NO Normal [facility] Comment on above: Performed By: #### C MP #### [facility] [address] [place] [address] Dr. Jeffrey Thomas MCH (RBC) [Entitic mass] 28.4 pg Normal 26.7-34.0 [facility] Comment on above: Performed By: #### C MP #### [facility] [address] [place] [address] Dr. Jeffrey Thomas MCHC (RBC) [Mass/Vol] 31.2 g/dL Normal 29.9-35.2 [facility] Comment on above: Performed By: #### C MP #### [facility] [address] [place] [address] Dr. Jeffrey Thomas MCV (RBC) [Entitic vol] 90.9 fL Normal 81.0-99.0 [facility] Comment on above: Performed By: #### C MP #### [facility] [address] [place] [address] Dr. Jeffrey Thomas MONO # 0.4 103/ul Normal 0.3-0.8 [facility] Comment on above: Performed By: #### C MP #### [facility] [address] [address] [address] Jeffrey Thomas Monocytes/100 WBC (Bld) 6.7 % Normal 1.7-12.0 [facility] Comment on above: Performed By: #### C MP #### [facility] [address] [place] [address] Dr. Jeffrey Thomas NEUT # 4.0 103/ul Normal 1.4-6.5 [facility] Comment on above: Performed By: #### C MP #### [facility] [address] [place] [address] Dr. Jeffrey Thomas Neutrophils/100 WBC (Bld) 61.0 % Normal 43.0-75.0 [facility] Comment on above: Performed By: #### C MP #### [facility] [address] [place] [address] Dr. Jeffrey Thomas Platelet mean volume (Bld) [Entitic vol] 10.4 fL Normal 9.5-13.5 [facility] Comment on above: Performed By: #### C MP #### [facility] [address] [place] [address] Dr. Jeffrey Thomas PLT 218 103/ul Normal 150-[address] [facility] Comment on above: Performed By: #### C MP #### [facility] [address] [place] [address] Dr. Jeffrey Thomas RBC 3.63 106/ul Critically low 4.20-5.40 [facility] Comment on above: Performed By: #### C MP #### [facility] [address] [place] [address] Dr. Jeffrey Thomas WBC 6.5 103/ul Normal 4.0-11.[address] [facility] Comment on above: Performed By: #### C MP #### [facility] [address] [place] [address] Dr. Jeffrey Thomas MAGNESIUMon 05-23-2022 Magnesium [Mass/Vol] 1.4 mg/dL Critically low 1.8-2.4 [facility] Comment on above: Performed By: #### A MM #### [facility] [address] [place] [address] Dr. Jeffrey Thomas PROF 14(COMP METB)on 023 Albumin [Mass/Vol] 2.8 g/dL Critically low 3.4-5.0 [facility] Comment on above: Performed By: #### A MM #### [facility] [address] [place] [address] Dr. Jeffrey Thomas Albumin/Globulin [Mass ratio] 1.0 {ratio} Normal [facility] Comment on above: Performed By: #### A MM #### [facility] [address] [place] [address] Dr. Jeffrey Thomas ALP [Catalytic activity/Vol] 113 U/L Normal 46-116 [facility] Comment on above: Performed By: #### A MM #### [facility] [address] [place] [address] Dr. Jeffrey Thomas ALT [Catalytic activity/Vol] 14 U/L Normal 14-59 [facility] Comment on above: Performed By: #### A MM #### [facility] [address] [place] [address] Dr. Jeffrey Thomas Anion gap [Moles/Vol] 15.0 mmol/L Normal [facility] Comment on above: Performed By: #### A MM #### [facility] [address] [place] [address] Dr. Jeffrey Thomas AST [Catalytic activity/Vol] 18 U/L Normal 15-37 [facility] Comment on above: Performed By: #### A MM #### [facility] [address] [place] [address] Dr. Jeffrey Thomas Bilirubin [Mass/Vol] 0.5 mg/dL Normal 0.2-1.0 [facility] Comment on above: Performed By: #### A MM #### [facility] [address] [place] [address] Dr. Jeffrey Thomas Calcium [Mass/Vol] 8.3 mg/dL Critically low 8.5-10.1 [facility] Comment on above: Performed By: #### A MM #### [facility] [address] [address] [address] Jeffrey Thomas Chloride [Moles/Vol] 106 mmol/L Normal 98-[address] [facility] Comment on above: Performed By: #### A MM #### [facility] [address] [address] [address] Jefrfey Thomas CO2 [Moles/Vol] 21.2 mmol/L Normal 21.0-32.0 [facility] Comment on above: Performed By: #### A MM #### [facility] [address] [address] [address] Jeffrey Thomas Creatinine [Mass/Vol] 1.02 mg/dL Normal 0.55-1.02 [facility] Comment on above: Performed By: #### A MM #### [facility] [address] [place] [address] Dr. Jeffrey Thomas EGFR-AF CZECH >60 Normal >=60 [facility] Comment on above: Performed By: #### A MM #### [facility] [address] [place] [address] Dr. Jeffrey Thomas EGFR-NON AF CZECH 54 mL/min/1.73m2 Critically low >=60 [facility] Comment on above: Performed By: #### A MM #### [facility] [address] [place] [address] Dr. Jeffrey Thomas Globulin (S) [Mass/Vol] 2.8 g/dL Normal [facility] Comment on above: Performed By: #### A MM #### [facility] [address] [place] [address] Dr. Jeffrey Thomas Glucose [Mass/Vol] 85 mg/dL Normal 74-106 [facility] Comment on above: Performed By: #### A MM #### [facility] [address] [place] [address] Dr. Jeffrey Thomas Potassium [Moles/Vol] 4.2 mmol/L Normal 3.5-5.1 [facility] Comment on above: Performed By: #### A MM #### [facility] [address] [place] [address] Dr. Jeffrey Thomas Protein [Mass/Vol] 5.6 g/dL Critically low 6.4-8.[address] [facility] Comment on above: Performed By: #### A MM #### [facility] [address] [place] [address] Dr. Jeffrey Thomas Sodium [Moles/Vol] 138 mmol/L Normal 136-145 [facility] Comment on above: Performed By: #### A MM #### [facility] [address] [place] [address] Dr. Jeffrey Thomas Urea nitrogen [Mass/Vol] 17.0 mg/dL Normal 7.0-18.0 [facility] Comment on above: Performed By: #### A MM #### [facility] [address] [place] [address] Dr. Jeffrey Thomas Urea nitrogen/Creatinine [Mass ratio] 16.7 mg/mg Normal [facility] Comment on above: Performed By: #### A MM #### [facility] [address] [place] [address] Dr. Jeffrey Thomas BNPon 05-22-2022 Natriuretic peptide B (Bld) [Mass/Vol] 1738.0 pg/mL Critically high <=900.0 [facility] Comment on above: Performed By: #### C MP #### [facility] [address] [place] [address] Dr. Jeffrey Thomas CBC AUTO DIFFon 05-22-2022 BASO # 0.1 103/ul Normal 0.0-0.1 [facility] Comment on above: Performed By: #### C MP #### [facility] [address] [place] [address] Dr. Jeffrey Thomas Basophils/100 WBC (Bld) 1.0 % Normal 0.2-2.0 [facility] Comment on above: Performed By: #### C MP #### [facility] [address] [place] [address] Dr. Jeffrey Thomas EO # 0.1 103/ul Normal 0.0-0.7 [facility] Comment on above: Performed By: #### C MP #### [facility] [address] [address] [address] Jeffrey Thomas Eosinophils/100 WBC (Bld) 1.0 % Normal 0.9-7.[address] [facility] Comment on above: Performed By: #### C MP #### [facility] [address] [place] [address] Dr. Jeffrey Thomas Erythrocyte distribution width (RBC) [Ratio] 17.2 % Critically high 11.0-15.0 [facility] Comment on above: Performed By: #### C MP #### [facility] [address] [place] [address] Dr. Jeffrey Thomas Hematocrit (Bld) [Volume fraction] 36.8 % Normal 36.0-48.0 [facility] Comment on above: Performed By: #### C MP #### [facility] [address] [place] [address] Dr. Jeffrey Thomas Hemoglobin (Bld) [Mass/Vol] 11.8 g/dL Critically low 12.0-16.0 [facility] Comment on above: Performed By: #### C MP #### [facility] [address] [place] [address] Dr. Jeffrey Thomas IG # 0.01 10e3/ul Normal 0.00-0.03 [facility] Comment on above: Performed By: #### C MP #### [facility] [address] [place] [address] Dr. Jeffrey Thomas IG % 0.2 % Normal 0.0-0.[address] [facility] Comment on above: Performed By: #### C MP #### [facility] [address] [place] [address] Dr. Jeffrey Thomas LYMPH # 1.4 103/ul Normal 1.2-3.[address] [facility] Comment on above: Performed By: #### C MP #### [facility] [address] [place] [address] Dr. Jeffrey Thomas Lymphocytes/100 WBC (Bld) 28.2 % Normal 20.5-60.[address] [facility] Comment on above: Performed By: #### C MP #### [facility] [address] [place] [address] Dr. Jeffrey Thomas MANUAL DIFF REQ NO Normal [facility] Comment on above: Performed By: #### C MP #### [facility] [address] [place] [address] Dr. Jeffrey Thomas MCH (RBC) [Entitic mass] 29.0 pg Normal 26.7-34.0 [facility] Comment on above: Performed By: #### C MP #### [facility] [address] [place] [address] Dr. Jeffrey Thomas MCHC (RBC) [Mass/Vol] 32.1 g/dL Normal 29.9-35.[address] [facility] Comment on above: Performed By: #### C MP #### [facility] [address] [place] [address] Dr. Jeffrey Thomas MCV (RBC) [Entitic vol] 90.4 fL Normal 81.0-99.0 [facility] Comment on above: Performed By: #### C MP #### [facility] [address] [place] [address] Dr. Jeffrey Thomas MONO # 0.4 103/ul Normal 0.3-0.[address] [facility] Comment on above: Performed By: #### C MP #### [facility] [address] [place] [address] Dr. Jeffrey Thomas Monocytes/100 WBC (Bld) 7.3 % Normal 1.7-12.[address] [facility] Comment on above: Performed By: #### C MP #### [facility] [address] [place] [address] Dr. Jeffrey Thomas NEUT # 3.0 103/ul Normal 1.4-6.[address] [facility] Comment on above: Performed By: #### C MP #### [facility] [address] [place] [address] Dr. Jeffrey Thomas Neutrophils/100 WBC (Bld) 62.3 % Normal 43.0-75.[address] [facility] Comment on above: Performed By: #### C MP #### [facility] [address] [place] [address] Dr. Jeffrey Thomas Platelet mean volume (Bld) [Entitic vol] 10.4 fL Normal 9.5-13.5 [facility] Comment on above: Performed By: #### C MP #### [facility] [address] [place] [address] Dr. Jeffrey Thomas PLT 254 103/ul Normal 150-[address] [facility] Comment on above: Performed By: #### C MP #### [facility] [address] [address] [address] Jeffrey Thomas RBC 4.07 106/ul Critically low 4.20-5.40 [facility] Comment on above: Performed By: #### C MP #### [facility] [address] [place] [address] Dr. Jeffrey Thomas WBC 4.8 103/ul Normal 4.0-11.[address] [facility] Comment on above: Performed By: #### C MP #### [facility] [address] [place] [address] ABD/PELVIS WO CONon 05-22 CT ABD/PELVIS WO CON INDICATION: GENERALIZED ABDOMINAL PAIN EXAMINATION: CT ABDOMEN AND PELVIS WITHOUT CONTRAST TECHNIQUE: Helically acquired images were obtained of the abdomen and pelvis without IV contrast. A radiation dose optimization technique was used for this scan. ORAL CONTRAST: None. COMPARISON: 10/23/2020 __ FINDINGS: LOWER CHEST: The visualized portion of the right lung base is clear. Mild left lower lobe scarring is unchanged. The heart size is within normal limits. A pericardial effusion is not identified. LIVER: No hepatic mass or lesion is identified. GALLBLADDER AND BILIARY TREE: No gallstones are identified. The gallbladder is moderately distended. No gallbladder wall thickening is identified. There is no visible pericholecystic fluid. No intra- or extrahepatic biliary ductal dilation is identified. STOMACH: Unremarkable. PANCREAS: A pancreatic mass or lesion is not identified. The pancreatic duct does not appear dilated. The pancreas is moderately atrophic in appearance. SPLEEN: A splenic lesion is not identified. ADRENAL GLANDS: The right adrenal gland appears normal. A left adrenal gland mass measures approximately 3.8 cm in diameter. Anteriorly, it measures approximately -15 Hounsfield units in density. Posteriorly, it measures up to 18 Hounsfield units in density. It has not changed significantly in size since 06/14/2018. KIDNEYS AND URETERS: Vascular calcifications within the left and right renal pelvis are unchanged. It would be difficult to confidently exclude small (less than 2 mm) renal calculi in this setting. There is no hydronephrosis. The ureters are unremarkable in appearance. PERITONEUM: No free intra-abdominal air is identified. No free pelvic fluid is detected. BOWEL: No bowel distension is observed. No significant colonic diverticula are observed. LYMPH NODES: No enlarged mesenteric or retroperitoneal lymph nodes. VESSELS: An aneurysm is not identified. There are moderate calcifications in the abdominal aorta. UTERUS: Absent. OVARIES: The ovaries are not identified. URINARY BLADDER: Unremarkable. ABDOMINAL WALL: No abdominal or pelvic wall hernia. APPENDIX: The appendix is not identified. MUSCULOSKELETAL: There is heavy beam hardening artifact through the pelvis related to bilateral hip arthroplasties. Moderate loss of stature of the T11 vertebral body has increased. Multiple old left rib fracture deformities are observed. IMPRESSION: 1. Moderate nonspecific distention of the gallbladder, similar to that demonstrated previously. There are no additional CT findings to suggest acute cholecystitis. Consider a right upper quadrant ultrasound examination. 2. Stable left adrenal gland mass, likely an adenoma. 3. No CT evidence of gastroparesis, gastric outlet obstruction, pancreatitis, appendicitis, obstructive uropathy or small bowel obstruction. 4. Intermediate grade T11 compression fracture, increased. Electronically authenticated by: SALOME JOLLY Date: 2022-05-22 15:45 Normal [address] [facility] CULTURE URINEon 05-22-2022 CULTURE URINE Culture Observations : LIGHT GROWTH OF MIXED GENITAL CANDIDA. NO POTENTIAL PATHOGENS SEEN. Normal [facility] Comment on above: Performed By: #### A MM #### [facility] [address] [place] [address] Dr. Jeffrey Thomas [facility]04 SARS-CoV-2 (COVID-19) RNA REBECCA+probe Ql (Unsp spec) Not detected Normal NOT DETECTED [facility] Comment on above: Result Comment: When diagnostic testing is negative, the possibility of a false negative should be considered in the context of a patient's recent exposures and the presence of clinical signs and symptoms consistent with SARS-CoV-2. This test is not yet approved or cleared by the [place] FDA. When there are no FDA-approved or cleared tests available, and other criteria are met, FDA can make tests available under an emergency access mechanism called an Emergency Use Authorization (EUA). The EUA for this test is supported by the [place] of Health and Human Service's declaration that circumstances exist to justify the emergency use of in vitro diagnostics for the detection and/or diagnosis of the virus that causes COVID-19. This EUA will remain in effect for the duration of the COVID-19 declaration justifying emergency of IVDs, unless it is terminated or revoked by the FDA (after which the test may no longer be used). Performed By: #### C MP #### [facility] [address] [place] [address] Dr. Jeffrey Thomas ER URINE PROFILEon 3 Bilirubin Ql (U) Negative Normal NEGATIVE [facility] Comment on above: Performed By: #### C MP #### [facility] [address] [place] [address] Dr. Jeffrey Thomas Clarity (U) CLEAR Normal CLEAR [facility] Comment on above: Performed By: #### C MP #### [facility] [address] [place] [address] Dr. Jeffrey Thomas Color (U) YELLOW Normal YELLOW [facility] Comment on above: Performed By: #### C MP #### [facility] [address] [place] [address] Dr. Jeffrey Thomas ERUAHD A micrscopic examination will be performed if indicated. Normal [facility] Comment on above: Performed By: #### C MP #### [facility] [address] [place] [address] Dr. Jeffrey Thomas Glucose Ql (U) Negative Normal NEGATIVE [facility] Comment on above: Performed By: #### C MP #### [facility] [address] [place] [address] Dr. Jeffrey Thomas Hemoglobin Ql (U) Negative Normal NEGATIVE [facility] Comment on above: Performed By: #### C MP #### [facility] [address] [address] [address] Jeffrey Thomas Ketones Ql (U) Negative Normal NEGATIVE [facility] Comment on above: Performed By: #### C MP #### [facility] [address] [place] [address] Dr. Jeffrey Thomas LEUKOCYTES Negative Normal NEGATIVE [facility] Comment on above: Performed By: #### C MP #### [facility] [address] [place] [address] Dr. Jeffrey Thomas Nitrite Ql (U) Negative Normal NEGATIVE [facility] Comment on above: Performed By: #### C MP #### [facility] [address] [place] [address] Dr. Jeffrey Thomas pH (U) 5.0 [pH] Normal 5-9 [facility] Comment on above: Performed By: #### C MP #### [facility] [address] [address] [address] Jeffrey Thomas SPEC GRAVITY 1.020 Normal 1.005-<=1.02 5 [facility] Comment on above: Performed By: #### C MP #### [facility] [address] [place] [address] Dr. Jeffrey Thomas UA PROTEIN Negative Normal NEGATIVE/ TRACE [facility] Comment on above: Performed By: #### C MP #### [facility] [address] [place] [address] Dr. Jeffrey Thomas UR MICRO IND NOT INDICATED Normal [facility] Comment on above: Performed By: #### C MP #### [facility] [address] [place] [address] Dr. Jeffrey Thomas Urobilinogen Qn (U) 0.2 {Bere'U}/dL Normal 0.2 - 1. 0 [facility] Comment on above: Performed By: #### C MP #### [facility] [address] [place] [address] Dr. Jeffrey Thomas INFLUENZA A AND B AGon 05-22 INFLUANEGH SEE BELOW Normal [facility] Comment on above: Result Comment: Nega tive for Flu A protein angiten. Infection due to Flu A cannot be ruled out. Flu A angiten in the sample may be below the detection limit of the test. Performed By: #### C MP #### [facility] [address] [place] [address] Dr. Jeffrey hTomas [facility] SEE BELOW Normal [facility] Comment on above: Result Comment: Nega tive for Flu B protein antigen. Infection due to Flu B cannot be ruled out. Flu B antigen in the sample may be below the detection limit of the test. Performed By: #### C MP #### [facility] [address] [place] [address] Dr. Jeffrey Thomas INFLUENZA A AG Negative Normal NEGATIVE SEE COMMENT [facility] Comment on above: Performed By: #### C MP #### [facility] [address] [place] [address] Dr. Jeffrey Thomas INFLUENZA B AG Negative Normal NEGATIVE SEE COMMENT [facility] Comment on above: Performed By: #### C MP #### [facility] [address] [place] [address] Dr. Jeffrey Thomas LACTATE/LACTIC ACIDon 2022 Lactate [Moles/Vol] 1.4 mmol/L Normal 0.4-1.9 [facility] Comment on above: Performed By: #### L ACT #### [facility] [address] [place] [address] Dr. Jeffery Thomas Lactate [Moles/Vol] 1.1 mmol/L Normal 0.4-1.9 [facility] Comment on above: Performed By: #### T 4LC #### [facility] [address] [place] [address] Dr. Jeffrey Thomas LIPASEon 05-22-2022 Lipase [Catalytic activity/Vol] 21.0 U/L Critically low 73.0-393.0 [facility] Comment on above: Performed By: #### C MP #### [facility] [address] [place] [address] Dr. Jeffrey Thomas PROF 14(COMP METB)on 023 Albumin [Mass/Vol] 3.2 g/dL Critically low 3.4-5.0 [facility] Comment on above: Performed By: #### C MP #### [facility] [address] [place] [address] Dr. Jeffrey Thomas Albumin/Globulin [Mass ratio] 1.0 {ratio} Normal [facility] Comment on above: Performed By: #### C MP #### [facility] [address] [place] [address] Dr. Jeffrey Thomas ALP [Catalytic activity/Vol] 133 U/L Critically high 46-116 [facility] Comment on above: Performed By: #### C MP #### [facility] [address] [place] [address] Dr. Jeffrey Thomas ALT [Catalytic activity/Vol] 14 U/L Normal 14-59 [facility] Comment on above: Performed By: #### C MP #### [facility] [address] [place] [address] Dr. Jeffrey Thomas Anion gap [Moles/Vol] 17.3 mmol/L Normal [facility] Comment on above: Performed By: #### C MP #### [facility] [address] [place] [address] Dr. Jeffrey Thomas AST [Catalytic activity/Vol] 18 U/L Normal 15-37 [facility] Comment on above: Performed By: #### C MP #### [facility] [address] [place] [address] Dr. Jeffrey Thomas Bilirubin [Mass/Vol] 0.5 mg/dL Normal 0.2-1.0 [facility] Comment on above: Performed By: #### C MP #### [facility] [address] [place] [address] Dr. Jeffrey Thomas Calcium [Mass/Vol] 9.0 mg/dL Normal 8.5-10.1 [facility] Comment on above: Performed By: #### C MP #### [facility] [address] [place] [address] Dr. Jeffrey Thomas Chloride [Moles/Vol] 107 mmol/L Normal 98-107 [facility] Comment on above: Performed By: #### C MP #### [facility] [address] [address] [address] Jeffrey Thomas CO2 [Moles/Vol] 20.0 mmol/L Critically low 21.0-32.0 [facility] Comment on above: Performed By: #### C MP #### [facility] [address] [address] [address] Jeffrey Thomas Creatinine [Mass/Vol] 1.05 mg/dL Critically high 0.55-1.02 [facility] Comment on above: Performed By: #### C MP #### [facility] [address] [address] [address] Jeffrey Thomas EGFR-AF CZECH >60 Normal >=60 [facility] Comment on above: Performed By: #### C MP #### [facility] [address] [address] [address] Jeffrey Thomas EGFR-NON AF CZECH 53 mL/min/1.73m2 Critically low >=60 [facility] Comment on above: Performed By: #### C MP #### [facility] [address] [address] [address] Jeffrey Thomas Globulin (S) [Mass/Vol] 3.1 g/dL Normal [facility] Comment on above: Performed By: #### C MP #### [facility] [address] [address] [address] Jeffrey Thomas Glucose [Mass/Vol] 117 mg/dL Critically high 74-106 [facility] Comment on above: Performed By: #### C MP #### [facility] [address] [address] [address] Jeffrey Thomas Potassium [Moles/Vol] 4.3 mmol/L Normal 3.5-5.1 [facility] Comment on above: Performed By: #### C MP #### [facility] [address] [address] [address] Jeffrey Thomas Protein [Mass/Vol] 6.3 g/dL Critically low 6.4-8.2 Th [facility] Comment on above: Performed By: #### C MP #### [facility] [address] [address] [address] Jeffrey Thomas Sodium [Moles/Vol] 140 mmol/L Normal 136-145 [facility] Comment on above: Performed By: #### C MP #### [facility] [address] [address] [address] Jeffrey Thomas Urea nitrogen [Mass/Vol] 20.0 mg/dL Critically high 7.0-18.0 [facility] Comment on above: Performed By: #### C MP #### [facility] [address] [place] [address] Dr. Jeffrey Thomas Urea nitrogen/Creatinine [Mass ratio] 19.0 mg/mg Normal [facility] Comment on above: Performed By: #### C MP #### [facility] [address] [place] [address] Dr. Jeffrey Thomas PROTIMEon 05-22-2022 INR Coag (PPP) [Relative time] 0.99 {INR} Normal [facility] Comment on above: Performed By: #### C MP #### [facility] [address] [address] [address] Jeffrey Thomas INR GUIDELINES SEE BELOW Normal [facility] Comment on above: Result Comment: MERARI RED INR: 2.0 - 3.0 CONDITIONS NOT LISTED BELOW 2.5 - 3.5 FOR PROSTHETIC HEART VALVE REPLACEMENT 2.5 - 3.5 RECURRENT THROMBOSIS Performed By: #### C MP #### [facility] [address] [place] [address] Dr. Jeffrey Thomas PT Coag (PPP) [Time] 10.5 s Normal 9.0-11.6 [facility] Comment on above: Performed By: #### C MP #### [facility] [address] [place] [address] Dr. Jeffrey Thomas PTTon 05-22-2022 aPTT Coag (Bld) [Time] 25.9 s Normal 22.3-36.2 [facility] Comment on above: Performed By: #### C MP #### [facility] [address] [place], [place] [address] Dr. Jeffrey Thomas TROPONIN, HIGH SENSITIVITYon 05-22-2022 HSTROP 6.1 pg/mL Normal 4.0-51.3 [facility] Comment on above: Result Comment: CUT- OFF POINTS HAVE BEEN ESTABLISHED BASED ON THE FOURTH UNIVERSAL DEFINITIONS OF MYOCARDIAL INFARCTION. THE UPPER REFERENCE LIMIT (URL) OF TROPONIN, DEFINED THE 99TH PERCENTILE OF cTnI DISTRIBUTION IN A REFERENCE POPULATION, HAS BEEN CONFIRMED THE DECISION THRESHOLD FOR PR DIAGNOSIS. Performed By: #### C MP #### [facility] [address] [place], [place] [address] Dr. Jeffrey Thomas US SINGLE QUAD RT UPPERon US SINGLE QUAD RT UPPER EXAM: US SINGLE QUAD RT UPPER HISTORY:NAUSEA WITH VOMITING, UNSPECIFIED . COMPARISON: None. TECHNIQUE: Trujillo scale and color imaging was performed FINDINGS: The head and body of the pancreas appears normal. The tail was obscured due to overlying bowel gas. Scanning of the liver demonstrates a liver to be normal in size. There is slight increased echogenicity of liver. Grossly no masses were noted. There is moderate distention of the gallbladder. No stones or sludge is identified. No gallbladder wall thickening is noted. Common bile duct measured 4.5 mm. Right kidney measures 9.2 x 4.4 x 4.8 cm. No solid renal cortical masses or hydronephrosis is noted. No fluid is noted in the right upper quadrant. IMPRESSION: 1. Moderate distention of the gallbladder. No gallstones are noted. No gallbladder wall thickening. 2. Slight increased echogenicity of liver suggesting fatty infiltration of liver. 3. The remainder the right upper quadrant was unremarkable. Electronically authenticated by: ABDIAS WEN Date: 2022-05-22 17:32 Normal [facility] XR CHEST 1 Von 05-22-2022 XR CHEST 1 V EXAM: XR CHEST 1 V a t 1451 hours HISTORY: SHORTNESS OF BREATH COMPARISON: 12/11/2021 TECHNIQUE: AP upright portable chest x-ray FINDINGS: Subtle opacity is seen at the left lung base, which may be due to overlying soft tissues or possibly a very small effusion. A small amount of linear atelectasis or scarring is seen in the left mid to lower lung, and these findings are unchanged. No acute infiltrate, effusion or pneumothorax is identified. The previously noted opacities in the upper lungs appear to be overlying soft tissues and osseous structures. The heart is not enlarged and the vasculature is not distended. Surgical clips are seen at the right apex. IMPRESSION: Subtle opacity at the left lung base is again noted, with a small amount of atelectasis or scarring. These findings remain unchanged. The lungs are otherwise clear. There is no evidence of cardiac decompensation. Electronically authenticated by: MELLY SEO Date: 2022-05-22 15:32 Normal [facility] PT Coag (PPP) [Time]on 05-04 INR Coag (PPP) [Relative time] 1.7 {INR} Normal <=5.0 [facility] Comment on above: Result Comment: The recommended therapeutic INR range for most cardiac indications is 2.0-3.0 For high intensity therapy (i.e. mechanical heart valves), the recommended range is 2.5-3.5 Performed By: #### 5 902-2 #### [facility] [address] [place] [address] Prothrombin timeon 3 PT Coag (PPP) [Time] 18.8 s High 11.9-14.7 [facility] Comment on above: Performed By: #### 5 902-2 #### [facility] [address] [place] [address] Basic metabolic 2000 panelon 05-03-2022 Anion gap [Moles/Vol] 8 mmol/L Normal 6-18 [facility] Comment on above: Performed By: #### 2 4321-2 #### [facility] [address] [place] [address] Calcium [Mass/Vol] 8.6 mg/dL Low 8.9-10.3 [facility] Comment on above: Performed By: #### 2 4321-2 #### [facility] [address] [place] [address] Chloride [Moles/Vol] 109 mmol/L High 98-107 [facility] Comment on above: Performed By: #### 2 4321-2 #### [facility] [place] [facility] [address] [place] [address] CO2 [Moles/Vol] 25 mmol/L Normal 22-32 [facility] Comment on above: Performed By: #### 2 4321-2 #### [facility] [place] [facility] [address] [place] [address] Creatinine [Mass/Vol] 1.07 mg/dL Normal 0.60-1.30 [facility] Comment on above: Performed By: #### 2 4321-2 #### [facility] [place] [facility] [address] [place] [address] GFR/1.73 sq M.predicted among non-blacks MDRD (S/P/Bld) [Vol rate/Area] 58 mL/min/{1.73_m2} Low >=60 [facility] Comment on above: Result Comment: Effe ctive January 08, 2022, calculation based on the?Chronic Kidney Disease Epidemiology Collaboration (CKD-EPI) equation refit?without adjustment for race. Performed By: #### 2 4321-2 #### [facility] [place] [facility] [address] [place] [address] Glucose [Mass/Vol] 78 mg/dL Normal 70-99 [facility] Comment on above: Performed By: #### 2 4321-2 #### [facility] [place] [facility] [address] [place] [address] Potassium [Moles/Vol] 5.1 mmol/L Normal 3.6-5.1 [facility] Comment on above: Performed By: #### 2 4321-2 #### [facility] [place] [facility] [address] [place] [address] Sodium [Moles/Vol] 142 mmol/L Normal 136-145 [facility] Comment on above: Performed By: #### 2 4321-2 #### [facility] [place] [facility] [address] [place] [address] Urea nitrogen [Mass/Vol] 35 mg/dL High 8-20 [facility] Comment on above: Performed By: #### 2 4321-2 #### [facility] [place] [facility] [address] [place] [address] Urea nitrogen/Creatinine [Mass ratio] 32.7 mg/mg High 12.0-20.0 [facility] Comment on above: Performed By: #### 2 4321-2 #### [facility] [place] [facility] [address] [place] [address] Hemogram and platelets WO di fferential panel (Bld)on 05-03-2022 Erythrocyte distribution width (RBC) [Ratio] 16.4 % High 11.0-14.8 [facility] Comment on above: Performed By: #### 2 4321-2 #### [facility] [place] [facility] [address] [place] [address] Hematocrit (Bld) [Volume fraction] 33.4 % Low 34.3-47.9 [facility] Comment on above: Performed By: #### 2 4321-2 #### [facility] [place] [facility] [address] [place] [address] Hemoglobin (Bld) [Mass/Vol] 10.0 g/dL Low 12.0-16.0 [facility] Comment on above: Performed By: #### 2 1-2 #### [facility] [place] [facility] [address] [place] [address] MCH 27.2 pcg Normal 27.0-34.0 [facility] Comment on above: Performed By: #### 2 4321-2 #### [facility] [place] [facility] [address] [place] [address] MCHC (RBC) [Mass/Vol] 29.9 g/dL Low 30.8-35.3 [facility] Comment on above: Performed By: #### 2 4321-2 #### [facility] [place] [facility] [address] [place] [address] MCV (RBC) [Entitic vol] 91.0 fL Normal 80.0-97.0 [facility] Comment on above: Performed By: #### 2 4321-2 #### [facility] [place] [facility] [address] [place] [address] Platelet mean volume (Bld) [Entitic vol] 11.6 fL Normal 6.2-12.1 [facility] Comment on above: Performed By: #### 2 4321-2 #### [facility] [place] [facility] [address] [place] [address] Platelets (Bld) [#/Vol] 283 10*3/uL Normal 142-424 [facility] Comment on above: Performed By: #### 2 4321-2 #### [facility] [place] [facility] [address] [place] [address] RBC (Bld) [#/Vol] 3.67 10*6/uL Low 3.74-5.34 [facility] Comment on above: Performed By: #### 2 4321-2 #### [facility] [place] [facility] [address] [place] [address] WBC (Bld) [#/Vol] 5.5 10*3/uL Normal 4.6-10.2 [facility] Comment on above: Performed By: #### 2 4321-2 #### [facility] [place] [facility] [address] [place] [address] PT Coag (PPP) [Time]on 05-03 INR Coag (PPP) [Relative time] 1.6 {INR} Normal <=5.0 [facility] Comment on above: Result Comment: The recommended therapeutic INR range for most cardiac indications is 2.0-3.0 For high intensity therapy (i.e. mechanical heart valves), the recommended range is 2.5-3.5 Performed By: #### 5 902-2 #### [facility] [place] [facility] [address] [place] [address] Prothrombin timeon PT Coag (PPP) [Time] 17.7 s High 11.9-14.7 [facility] Comment on above: Performed By: #### 5 902-2 #### [facility] [address] [place] [address] Nuclear IgG IA Ql (S)on 04-04 Bacteria identified Cx Nom (U) 1 ORGANISM 202 Abnormal >448847 CFU/mL Escherichia coli The organism value for this result has been updated. These results have been appended to the previously preliminary verified report. This is an edited result. Previous organism was Gram negative bacilli on 05/04/2022 at 2037 EST. -------- 1 ORGANISM Antibiotic Result Intrp Ampicillin Susc Islt >=32 ug/ml Resistant Ampicillin+Sulbac Susc Islt >=32 ug/ml Resistant ceFAZolin Susc Islt 16 ug/ml I cefTRIAXone Susc Islt <=0.25 ug/ml Susceptible levoFLOXacin Susc Islt 1 ug/ml I Gentamicin Susc Islt <=1 ug/ml Susceptible Ciprofloxacin Susc Islt 0.5 ug/ml I Nitrofurantoin Susc Islt <=16 ug/ml Susceptible TMP SMX Susc Islt <=20 ug/ml Susceptible Invalid Interpretation Code [facility] Comment on above: Performed By: #### 2 4321-2 #### [facility] [address] [place] [address] Bacteria, Urine Many Abnormal None [facility] Comment on above: Performed By: #### 2 4321-2 #### [facility] [address] [place] [address] Bilirubin, Urine Negative Normal Negative [facility] Comment on above: Performed By: #### 2 4321-2 #### [facility] [address] [place] [address] Blood, Urine 3+ Abnormal Negative [facility] Comment on above: Performed By: #### 2 4321-2 #### [facility] [place] [facility] [address] [place] [address] Clarity (U) Slightly Cloudy Abnormal Clear [facility] Comment on above: Performed By: #### 2 4321-2 #### [facility] [place] [facility] [address] [place] [address] Color (U) Renata Abnormal Yellow [facility] Comment on above: Performed By: #### 2 4321-2 #### [facility] [place] [facility] [address] [place] [address] Glucose Ql (U) Normal Normal Normal [facility] Comment on above: Performed By: #### 2 4321-2 #### [facility] [place] [facility] [address] [place] [address] Ketones Ql (U) Negative Normal Negative [facility] Comment on above: Performed By: #### 2 1-2 #### [facility] [place] [facility] [address] [place] [address] Leukocytes, Urine 250 WBCs/mcL Abnormal Negative [facility] Comment on above: Performed By: #### 2 1-2 #### [facility] [place] [facility] [address] [place] [address] Mucus, UA Rare Abnormal None [facility] Comment on above: Performed By: #### 2 4321-2 #### [facility] [place] [facility] [address] [place] [address] Nitrite, Urine Negative Normal Negative [facility] Comment on above: Performed By: #### 2 4321-2 #### [facility] [place] [facility] [address] [place] [address] pH (U) 6.0 [pH] Normal 5.0-8.0 [facility] Comment on above: Performed By: #### 2 4321-2 #### [facility] [place] [facility] [address] [place] [address] Protein (U) [Mass/Vol] 30 mg/dL Abnormal Negative [facility] Comment on above: Performed By: #### 2 4321-2 #### [facility] [address] [place] [address] RBC LM.HPF (Urine sed) [#/Area] 362 /[HPF] High 0-5 [facility] Comment on above: Performed By: #### 2 4321-2 #### [facility] [address] [place] [address] Specific [place] Urine 1.012 Normal 1.002-1.030 [facility] Comment on above: Performed By: #### 2 4321-2 #### [facility] [address] [place] [address] Squamous Epithelial, Urine Rare Abnormal None [facility] Comment on above: Performed By: #### 2 4321-2 #### [facility] [address] [place] [address] Urobilinogen, Urine Normal Normal Normal [facility] Comment on above: Performed By: #### 2 4321-2 #### [facility] [address] [place] [address] WBC LM.HPF (Urine sed) [#/Area] 47 /[HPF] High 0-5 [facility] Comment on above: Performed By: #### 2 4321-2 #### [facility] [address] [place] [address] PT Coag (PPP) [Time]on 05-02 INR Coag (PPP) [Relative time] 1.4 {INR} Normal <=5.0 [facility] Comment on above: Result Comment: The recommended therapeutic INR range for most cardiac indications is 2.0-3.0 For high intensity therapy (i.e. mechanical heart valves), the recommended range is 2.5-3.5 Performed By: #### 5 902-2 #### [facility] [address] [place] [address] Prothrombin timeon 3 PT Coag (PPP) [Time] 15.9 s High 11.9-14.7 [facility] Comment on above: Performed By: #### 5 902-2 #### [facility] [place] [facility] [address] [place] [address] Basic metabolic 2000 panelon 05-01-2022 Anion gap [Moles/Vol] 8 mmol/L Normal 6-18 [facility] Comment on above: Performed By: #### 5 902-2 #### [facility] [place] [facility] [address] [place] [address] Calcium [Mass/Vol] 8.6 mg/dL Low 8.9-10.3 [facility] Comment on above: Performed By: #### 5 902-2 #### [facility] [place] [facility] [address] [place] [address] Chloride [Moles/Vol] 108 mmol/L High 98-107 [facility] on above: Performed By: #### 5 902-2 #### [facility] [place] [facility] [address] [place] [address] CO2 [Moles/Vol] 25 mmol/L Normal 22-32 [facility] Comment on above: Performed By: #### 5 902-2 #### [facility] [place] [facility] [address] [place] [address] Creatinine [Mass/Vol] 0.97 mg/dL Normal 0.60-1.30 [facility] Comment on above: Performed By: #### 5 902-2 #### [facility] [place] [facility] [address] [place] [address] GFR/1.73 sq M.predicted among non-blacks MDRD (S/P/Bld) [Vol rate/Area] 65 mL/min/{1.73_m2} Normal >=60 [facility] Comment on above: Result Comment: Effe ctive January 08, 2022, calculation based on the?Chronic Kidney Disease Epidemiology Collaboration (CKD-EPI) equation refit?without adjustment for race. Performed By: #### 5 902-2 #### [facility] [place] [facility] [address] [place] [address] Glucose [Mass/Vol] 82 mg/dL Normal 70-99 [facility] Comment on above: Performed By: #### 5 902-2 #### [facility] [place] [facility] [address] [place] [address] Potassium [Moles/Vol] 4.5 mmol/L Normal 3.6-5.1 [facility] Comment on above: Performed By: #### 5 902-2 #### [facility] [place] [facility] [address] [place] [address] Sodium [Moles/Vol] 141 mmol/L Normal 136-145 [facility] Comment on above: Performed By: #### 5 902-2 #### [facility] [place] [facility] [address] [place] [address]54 Urea nitrogen [Mass/Vol] 34 mg/dL High 8-20 [facility] Comment on above: Performed By: #### 5 902-2 #### [facility] [place] [facility] [address] [place] [address]10 Urea nitrogen/Creatinine [Mass ratio] 35.1 mg/mg High 12.0-20.0 [facility] Comment on above: Performed By: #### 5 902-2 #### [facility] [place] [facility] [address] [place] [address] Hemogram and platelets WO di fferential panel (Bld)on 05-01-2022 Erythrocyte distribution width (RBC) [Ratio] 16.5 % High 11.0-14.8 [facility] Comment on above: Performed By: #### 2 4321-2 #### [facility] [place] [facility] [address] [place] [address] Hematocrit (Bld) [Volume fraction] 33.7 % Low 34.3-47.9 [facility] Comment on above: Performed By: #### 2 4321-2 #### [facility] [place] [facility] [address] [place] [address]283 Hemoglobin (Bld) [Mass/Vol] 10.3 g/dL Low 12.0-16.0 [facility] Comment on above: Performed By: #### 2 4321-2 #### [facility] [place] [facility] [address] [place] [address]40 MCH 28.1 pcg Normal 27.0-34.0 [facility] Comment on above: Performed By: #### 2 4320-2 #### [facility] [place] [facility] [address] [place] [address]001 MCHC (RBC) [Mass/Vol] 30.6 g/dL Low 30.8-35.3 [facility] Comment on above: Performed By: #### 2 1-2 #### [facility] [place] [facility] [address] [place] [address]36 MCV (RBC) [Entitic vol] 92.1 fL Normal 80.0-97.0 [facility] Comment on above: Performed By: #### 2 1-2 #### [facility] [place] [facility] [address] [place] [address]76 Platelet mean volume (Bld) [Entitic vol] 11.6 fL Normal 6.2-12.1 [facility] Comment on above: Performed By: #### 2 1-2 #### [facility] [place] [facility] [address] [place] [address]51 Platelets (Bld) [#/Vol] 275 10*3/uL Normal 142-424 [facility] Comment on above: Performed By: #### 2 1-2 #### [facility] [place] [facility] [address] [place] [address]144 RBC (Bld) [#/Vol] 3.66 10*6/uL Low 3.74-5.34 [facility] Comment on above: Performed By: #### 2 4321-2 #### [facility] [address] [place] [address] WBC (Bld) [#/Vol] 5.9 10*3/uL Normal 4.6-10.2 [facility] Comment on above: Performed By: #### 2 4321-2 #### [facility] [address] [place] [address]00 PT Coag (PPP) [Time]on 05-01 INR Coag (PPP) [Relative time] 1.3 {INR} Normal <=5.0 [facility] Comment on above: Result Comment: The recommended therapeutic INR range for most cardiac indications is 2.0-3.0 For high intensity therapy (i.e. mechanical heart valves), the recommended range is 2.5-3.5 Performed By: #### 2 4321-2 #### [facility] [address] [place] [address] Prothrombin timeon 3 PT Coag (PPP) [Time] 15.6 s High 11.9-14.7 [facility] Comment on above: Performed By: #### 2 4321-2 #### [facility] [address] [place] [address]652 PT Coag (PPP) [Time]on 04-30 INR Coag (PPP) [Relative time] 1.4 {INR} Normal <=5.0 [facility] Comment on above: Result Comment: The recommended therapeutic INR range for most cardiac indications is 2.0-3.0 For high intensity therapy (i.e. mechanical heart valves), the recommended range is 2.5-3.5 Performed By: #### 5 902-2 #### [facility] ([facility]) LAB [address] [place] [address] 50916 Prothrombin timeon 3 PT Coag (PPP) [Time] 16.0 s High 11.9-14.7 [facility] Comment on above: Performed By: #### 5 902-2 #### [facility] [place] [facility] [address] [place] [address] Basic metabolic 2000 panelon 04-29-2022 Anion gap [Moles/Vol] 6 mmol/L Normal 6-18 [facility] Comment on above: Performed By: #### 5 902-2 #### [facility] [place] [facility] [address] [place] [address] Calcium [Mass/Vol] 8.7 mg/dL Low 8.9-10.3 [facility] Comment on above: Performed By: #### 5 902-2 #### [facility] [place] [facility] [address] [place] [address] 02691 Chloride [Moles/Vol] 103 mmol/L Normal 98-107 [facility] Comment on above: Performed By: #### 5 902-2 #### [facility] [place] ([facility] [address] [place] [address] 07446 CO2 [Moles/Vol] 28 mmol/L Normal 22-32 [facility] Comment on above: Performed By: #### 5 902-2 #### [facility] [place] [facility]) [facility] [address] [place] [address] Creatinine [Mass/Vol] 1.14 mg/dL Normal 0.60-1.30 [facility] Comment on above: Performed By: #### 5 902-2 #### [facility] [place] [facility]) [facility] [address] [place] [address] 15654 GFR/1.73 sq M.predicted among non-blacks MDRD (S/P/Bld) [Vol rate/Area] 54 mL/min/{1.73_m2} Low >=60 [facility] Comment on above: Result Comment: Effe ctive January 08, 2022, calculation based on the?Chronic Kidney Disease Epidemiology Collaboration (CKD-EPI) equation refit?without adjustment for race. Performed By: #### 5 902-2 #### [facility] [place] [facility] [address] [place] [address] Glucose [Mass/Vol] 90 mg/dL Normal 70-99 [facility] Comment on above: Performed By: #### 5 902-2 #### [facility] [place] [facility] [address] [place] [address] 98332 Potassium [Moles/Vol] 4.8 mmol/L Normal 3.6-5.1 [facility] Comment on above: Performed By: #### 5 902-2 #### [facility] [place] [facility] [address] [place] [address] 72579 Sodium [Moles/Vol] 137 mmol/L Normal 136-145 [facility] Comment on above: Performed By: #### 5 902-2 #### [facility] [place] [facility] [address] [place] [address] 00156 Urea nitrogen [Mass/Vol] 35 mg/dL High 8-20 [facility] Comment on above: Performed By: #### 5 902-2 #### [facility] [place] [facility] [address] [place] [address] 81353 Urea nitrogen/Creatinine [Mass ratio] 30.7 mg/mg High 12.0-20.0 [facility] Comment on above: Performed By: #### 5 902-2 #### [facility] [place] [facility] [address] [place] [address] 13546 PT Coag (PPP) [Time]on 04-29 INR Coag (PPP) [Relative time] 1.4 {INR} Normal <=5.0 [facility] Comment on above: Result Comment: The recommended therapeutic INR range for most cardiac indications is 2.0-3.0 For high intensity therapy (i.e. mechanical heart valves), the recommended range is 2.5-3.5 Performed By: #### 5 902-2 #### [facility] [place] [facility] [address] [place] [address] 03488 Prothrombin timeon PT Coag (PPP) [Time] 16.5 s High 11.9-14.7 [facility] Comment on above: Performed By: #### 5 902-2 #### [facility] [address] [place] [address] 21706 PT Coag (PPP) [Time]on 04-28 INR Coag (PPP) [Relative time] 1.3 {INR} Normal <=5.0 [facility] Comment on above: Result Comment: The recommended therapeutic INR range for most cardiac indications is 2.0-3.0 For high intensity therapy (i.e. mechanical heart valves), the recommended range is 2.5-3.5 Performed By: #### 5 902-2 #### [facility] [address] [place] [address] 97204 Prothrombin timeon PT Coag (PPP) [Time] 15.6 s High 11.9-14.7 [facility] Comment on above: Performed By: #### 5 902-2 #### [facility] [address] [place] [address] 24370 Basic metabolic 2000 panelon 04-27-2022 Anion gap [Moles/Vol] 10 mmol/L Normal 6-18 [facility] Comment on above: Performed By: #### 2 4321-2 #### [facility] ([facility]) [facility] [address] [place] [address] 51666 Calcium [Mass/Vol] 8.4 mg/dL Low 8.9-10.3 [facility] Comment on above: Performed By: #### 2 4321-2 #### [facility] [address] [place] [address] 01662 Chloride [Moles/Vol] 105 mmol/L Normal 98-107 [facility] Comment on above: Performed By: #### 2 4321-2 #### [facility] [address] [place] [address] 76161 CO2 [Moles/Vol] 22 mmol/L Normal 22-32 [facility] Comment on above: Performed By: #### 2 4321-2 #### [facility] ([facility] [address] [place] [address] Creatinine [Mass/Vol] 1.12 mg/dL Normal 0.60-1.30 [facility] Comment on above: Performed By: #### 2 4321-2 #### [facility] [address] [place] [address] GFR/1.73 sq M.predicted among non-blacks MDRD (S/P/Bld) [Vol rate/Area] 55 mL/min/{1.73_m2} Low >=60 [facility] Comment on above: Result Comment: Effe ctive January 08, 2022, calculation based on the?Chronic Kidney Disease Epidemiology Collaboration (CKD-EPI) equation refit?without adjustment for race. Performed By: #### 2 4321-2 #### [facility] [place] [facility] [address] [place] [address] 21050 Glucose [Mass/Vol] 82 mg/dL Normal 70-99 [facility] Comment on above: Performed By: #### 2 4321-2 #### [facility] [address] [place] [address] 57605 Potassium [Moles/Vol] 5.6 mmol/L High 3.6-5.1 [facility] Comment on above: Performed By: #### 2 4321-2 #### [facility] [place] [facility] [address] [place] [address] Sodium [Moles/Vol] 137 mmol/L Normal 136-145 [facility] Comment on above: Performed By: #### 2 4321-2 #### [facility] [address] [place] [address] Urea nitrogen [Mass/Vol] 35 mg/dL High 8-20 [facility] Comment on above: Performed By: #### 2 4321-2 #### [facility] [address] [place] [address] Urea nitrogen/Creatinine [Mass ratio] 31.3 mg/mg High 12.0-20.0 [facility] Comment on above: Performed By: #### 2 4321-2 #### [facility] ([facility]) [facility] [address] [place] [address] 15421 PT Coag (PPP) [Time]on 04-27 INR Coag (PPP) [Relative time] 1.2 {INR} Normal <=5.0 [facility] Comment on above: Result Comment: The recommended therapeutic INR range for most cardiac indications is 2.0-3.0 For high intensity therapy (i.e. mechanical heart valves), the recommended range is 2.5-3.5 Performed By: #### 5 902-2 #### [facility] ([facility]) [facility] [address] [place] [address] 48555 Prothrombin timeon 3 PT Coag (PPP) [Time] 14.5 s Normal 11.9-14.7 [facility] Comment on above: Performed By: #### 5 902-2 #### [facility] ([facility]) [facility] [address] [place] [address] 01830 PT Coag (PPP) [Time]on 04-26 INR Coag (PPP) [Relative time] 1.2 {INR} Normal <=5.0 [facility] Comment on above: Result Comment: The recommended therapeutic INR range for most cardiac indications is 2.0-3.0 For high intensity therapy (i.e. mechanical heart valves), the recommended range is 2.5-3.5 Performed By: #### 2 4321-2 #### [facility] ([facility]) [facility] [address] [place] [address] 42878 Prothrombin timeon 3 PT Coag (PPP) [Time] 14.3 s Normal 11.9-14.7 [facility] Comment on above: Performed By: #### 2 4321-2 #### [facility] ([facility]) [facility] [address] [place] [address] 23229 Basic metabolic 2000 panelon 04-25-2022 Anion gap [Moles/Vol] 7 mmol/L Normal 6-18 [facility] Comment on above: Performed By: #### 2 4321-2 #### [facility] [address] [place] [address] 28321 Calcium [Mass/Vol] 8.5 mg/dL Low 8.9-10.3 [facility] Comment on above: Performed By: #### 2 4321-2 #### [facility] [address] [place] [address] 87713 Chloride [Moles/Vol] 104 mmol/L Normal 98-107 [facility] Comment on above: Performed By: #### 2 4321-2 #### [facility] [address] [place] [address] 05100 CO2 [Moles/Vol] 30 mmol/L Normal 22-32 [facility] Comment on above: Performed By: #### 2 4321-2 #### [facility] [address] [place] [address] 08250 Creatinine [Mass/Vol] 1.00 mg/dL Normal 0.60-1.30 [facility] Comment on above: Performed By: #### 2 4321-2 #### [facility] [address] [place] [address] 30740 GFR/1.73 sq M.predicted among non-blacks MDRD (S/P/Bld) [Vol rate/Area] 63 mL/min/{1.73_m2} Normal >=60 [facility] Comment on above: Result Comment: Effe ctive January 08, 2022, calculation based on the?Chronic Kidney Disease Epidemiology Collaboration (CKD-EPI) equation refit?without adjustment for race. Performed By: #### 2 4321-2 #### [facility] [address] [place] [address] 74182 Glucose [Mass/Vol] 89 mg/dL Normal 70-99 [facility] Comment on above: Performed By: #### 2 4321-2 #### [facility] [address] [place] [address] [place] [address] Potassium [Moles/Vol] 5.2 mmol/L High 3.6-5.1 [facility] Comment on above: Performed By: #### 2 4321-2 #### [facility] [address] [place] [address] 39698 Sodium [Moles/Vol] 141 mmol/L Normal 136-145 [facility] Comment on above: Performed By: #### 2 4321-2 #### [facility] [address] [place] [address] 22934 Urea nitrogen [Mass/Vol] 25 mg/dL High 8-20 [facility] Comment on above: Performed By: #### 2 4321-2 #### [facility] [address] [place] [address] 40724 Urea nitrogen/Creatinine [Mass ratio] 25.0 mg/mg High 12.0-20.0 [facility] Comment on above: Performed By: #### 2 4321-2 #### [facility] [address] [place] [address] 00482 PT Coag (PPP) [Time]on 04-25 INR Coag (PPP) [Relative time] 1.2 {INR} Normal <=5.0 [facility] Comment on above: Result Comment: The recommended therapeutic INR range for most cardiac indications is 2.0-3.0 For high intensity therapy (i.e. mechanical heart valves), the recommended range is 2.5-3.5 Performed By: #### 5 902-2 #### [facility] [address] [place] [address] 90719 Prothrombin timeon PT Coag (PPP) [Time] 14.0 s Normal 11.9-14.7 [facility] Comment on above: Performed By: #### 5 902-2 #### [facility] [address] [place] [address] 94293 Basic metabolic 2000 panelon 04-24-2022 Anion gap [Moles/Vol] 7 mmol/L Normal 6-18 [facility] Comment on above: Performed By: #### 2 4321-2 #### [facility] [address] [place] [address] Calcium [Mass/Vol] 8.7 mg/dL Low 8.9-10.3 [facility] Comment on above: Performed By: #### 2 4321-2 #### [facility] [address] [place] [address] 86548 Chloride [Moles/Vol] 106 mmol/L Normal 98-107 [facility] Comment on above: Performed By: #### 2 4321-2 #### [facility] ([facility] [address] [place] [address] 54769 CO2 [Moles/Vol] 28 mmol/L Normal 22-32 [facility] Comment on above: Performed By: #### 2 4321-2 #### [facility] [place] [facility] [address] [place] [address] 14001 Creatinine [Mass/Vol] 1.14 mg/dL Normal 0.60-1.30 [facility] Comment on above: Performed By: #### 2 4321-2 #### [facility] ([facility] [address] [place] [address] 41212 GFR/1.73 sq M.predicted among non-blacks MDRD (S/P/Bld) [Vol rate/Area] 54 mL/min/{1.73_m2} Low >=60 [facility] Comment on above: Result Comment: Effe ctive January 08, 2022, calculation based on the?Chronic Kidney Disease Epidemiology Collaboration (CKD-EPI) equation refit?without adjustment for race. Performed By: #### 2 4321-2 #### [facility] [place] [facility] [address] [place] [address] Glucose [Mass/Vol] 95 mg/dL Normal 70-99 [facility] Comment on above: Performed By: #### 2 4321-2 #### [facility] [address] [place] [address] Potassium [Moles/Vol] 5.3 mmol/L High 3.6-5.1 [facility] Comment on above: Performed By: #### 2 4321-2 #### [facility] [place] [facility] [address] [place] [address] 68579 Sodium [Moles/Vol] 141 mmol/L Normal 136-145 [facility] Comment on above: Performed By: #### 2 4321-2 #### [facility] [address] [place] [address] 10457 Urea nitrogen [Mass/Vol] 25 mg/dL High 8-20 [facility] Comment on above: Performed By: #### 2 4321-2 #### [facility] [address] [place] [address] 09957 Urea nitrogen/Creatinine [Mass ratio] 21.9 mg/mg High 12.0-20.0 [facility] Comment on above: Performed By: #### 2 4321-2 #### [facility] [address] [place] [address] 05713 Hemogram and platelets WO di fferential panel (Bld)on 04-24-2022 Erythrocyte distribution width (RBC) [Ratio] 16.9 % High 11.0-14.8 [facility] Comment on above: Performed By: #### 2 4317-0 #### [facility] [address] [place] [address] 69553 Hematocrit (Bld) [Volume fraction] 35.3 % Normal 34.3-47.9 [facility] Comment on above: Performed By: #### 2 4317-0 #### [facility] [address] [place] [address] 26712 Hemoglobin (Bld) [Mass/Vol] 10.9 g/dL Low 12.0-16.0 [facility] Comment on above: Performed By: #### 2 4317-0 #### [facility] ([facility] [address] [place] [address] Immature Platelet Fraction 14.0 % High 1.4-10.8 [facility] Comment on above: Performed By: #### 2 4317-0 #### [facility] [place] [facility] [address] [place] [address] MCH 28.9 pcg Normal 27.0-34.0 [facility] Comment on above: Performed By: #### 2 4317-0 #### [facility] [place] [facility] [address] [place] [address] 58189 MCHC (RBC) [Mass/Vol] 30.9 g/dL Normal 30.8-35.3 [facility] Comment on above: Performed By: #### 2 4317-0 #### [facility] [place] [facility] [address] [place] [address] 08206 MCV (RBC) [Entitic vol] 93.6 fL Normal 80.0-97.0 [facility] Comment on above: Performed By: #### 2 4317-0 #### [facility] [address] [place] [address] 00912 Platelet mean volume (Bld) [Entitic vol] 12.9 fL High 6.2-12.1 [facility] Comment on above: Performed By: #### 2 4317-0 #### [facility] [place] [facility] [address] [place] [address] 76322 Platelets (Bld) [#/Vol] 160 10*3/uL Normal 142-424 [facility] Comment on above: Performed By: #### 2 4317-0 #### [facility] [address] [place] [address] 13823 RBC (Bld) [#/Vol] 3.77 10*6/uL Normal 3.74-5.34 [facility] Comment on above: Performed By: #### 2 4317-0 #### [facility] [address] [place] [address] 25650 WBC (Bld) [#/Vol] 7.7 10*3/uL Normal 4.6-10.2 [facility] Comment on above: Performed By: #### 2 4317-0 #### [facility] [address] [place] [address] 19905 PT Coag (PPP) [Time]on 04-24 INR Coag (PPP) [Relative time] 1.1 {INR} Normal <=5.0 [facility] Comment on above: Result Comment: The recommended therapeutic INR range for most cardiac indications is 2.0-3.0 For high intensity therapy (i.e. mechanical heart valves), the recommended range is 2.5-3.5 Performed By: #### 2 4321-2 #### [facility] [address] [place] [address] 90223 Prothrombin timeon PT Coag (PPP) [Time] 13.9 s Normal 11.9-14.7 [facility] Comment on above: Performed By: #### 2 4321-2 #### [facility] [place] [facility] [address] [place] [address] 59066 Basic metabolic 2000 panelon 04-23-2022 Anion gap [Moles/Vol] 8 mmol/L Normal 6-18 [facility] Comment on above: Performed By: #### 2 4321-2 #### [facility] [address] [place] [address] 66214 Calcium [Mass/Vol] 8.5 mg/dL Low 8.9-10.3 [facility] Comment on above: Performed By: #### 2 4321-2 #### [facility] [address] [place] [address] 88082 Chloride [Moles/Vol] 106 mmol/L Normal 98-107 [facility] Comment on above: Performed By: #### 2 4321-2 #### [facility] [address] [place] [address] 11565 CO2 [Moles/Vol] 28 mmol/L Normal 22-32 [facility] Comment on above: Performed By: #### 2 4321-2 #### [facility] [address] [place] [address] 15097 Creatinine [Mass/Vol] 1.01 mg/dL Normal 0.60-1.30 [facility] Comment on above: Performed By: #### 2 4321-2 #### [facility] [address] [place] [address] 02988 GFR/1.73 sq M.predicted among non-blacks MDRD (S/P/Bld) [Vol rate/Area] 62 mL/min/{1.73_m2} Normal >=60 [facility] Comment on above: Result Comment: Effe ctive January 08, 2022, calculation based on the?Chronic Kidney Disease Epidemiology Collaboration (CKD-EPI) equation refit?without adjustment for race. Performed By: #### 2 4321-2 #### [facility] [address] [place] [address] 13836 Glucose [Mass/Vol] 108 mg/dL High 70-99 [facility] Comment on above: Performed By: #### 2 4321-2 #### [facility] [address] [place] [address] 06867 Potassium [Moles/Vol] 5.0 mmol/L Normal 3.6-5.1 [facility] Comment on above: Performed By: #### 2 4321-2 #### [facility] [address] [place] [address] 92753 Sodium [Moles/Vol] 142 mmol/L Normal 136-145 [facility] Comment on above: Performed By: #### 2 4321-2 #### [facility] [address] [place] [address] 08608 Urea nitrogen [Mass/Vol] 23 mg/dL High 8-20 [facility] Comment on above: Performed By: #### 2 4321-2 #### [facility] [address] [place] [address] 16383 Urea nitrogen/Creatinine [Mass ratio] 22.8 mg/mg High 12.0-20.0 [facility] Comment on above: Performed By: #### 2 4321-2 #### [facility] [address] [place] [address] 76533 Hemogram and platelets WO di fferential panel (Bld)on 04-23-2022 Basophils (Bld) [#/Vol] 0.06 10*3/uL Normal 0.00-0.20 [facility] Comment on above: Performed By: #### 2 4321-2 #### [facility] [address] [place] [address] 99905 Basophils/100 WBC (Bld) 0.7 % Normal 0.0-2.0 [facility] Comment on above: Performed By: #### 2 4321-2 #### [facility] [address] [place] [address] 96710 Eosinophils (Bld) [#/Vol] 0.17 10*3/uL Normal 0.00-0.70 [facility] Comment on above: Performed By: #### 2 4321-2 #### [facility] [address] [place] [address] 75717 Eosinophils/100 WBC (Bld) 2.1 % Normal 0.0-7.0 [facility] Comment on above: Performed By: #### 2 4321-2 #### [facility] [address] [place] [address] [id number] Erythrocyte distribution width (RBC) [Ratio] 17.0 % High 11.0-14.8 [facility] Comment on above: Performed By: #### 2 4321-2 #### [facility] ([facility]) LAB [address] [place] [address] [id number] Hematocrit (Bld) [Volume fraction] 34.1 % Low 34.3-47.9 [facility] Comment on above: Performed By: #### 2 1-2 #### [facility] [address] [place] [address] [id number] Hemoglobin (Bld) [Mass/Vol] 10.4 g/dL Low 12.0-16.0 [facility] Comment on above: Performed By: #### 2 4320-2 #### [facility] [address] [place] [address] [id number] Immature granulocytes (Bld) [#/Vol] 0.02 10*3/uL Normal 0.00-0.10 [facility] Comment on above: Performed By: #### 2 4320-2 #### [facility] ([facility]) [facility] [address] [place] [address] Immature granulocytes/100 WBC (Bld) 0.2 % Normal 0.0-1.2 [facility] Comment on above: Performed By: #### 2 4320-2 #### [facility] ([facility]) LAB [address] [place] [address] 20839 Lymphocytes (Bld) [#/Vol] 2.24 10*3/uL Normal 1.00-4.80 [facility] Comment on above: Performed By: #### 2 4320-2 #### [facility] ([facility]) [facility] [address] [place] [address] 29430 Lymphocytes/100 WBC (Bld) 27.4 % Normal 17.9-49.6 [facility] Comment on above: Performed By: #### 2 1-2 #### [facility] ([facility]) [facility] [address] [place] [address]77 MCH 28.4 pcg Normal 27.0-34.0 [facility] Comment on above: Performed By: #### 2 1-2 #### [facility] ([facility]) [facility] [address] [place] [address] 21605 MCHC (RBC) [Mass/Vol] 30.5 g/dL Low 30.8-35.3 [facility] Comment on above: Performed By: #### 2 1-2 #### [facility] [place] ([facility] [address] [place] [address] MCV (RBC) [Entitic vol] 93.2 fL Normal 80.0-97.0 [facility] Comment on above: Performed By: #### 2 4321-2 #### [facility] [place] [facility] [address] [place] [address] Monocytes (Bld) [#/Vol] 0.98 10*3/uL High 0.00-0.90 [facility] Comment on above: Performed By: #### 2 4321-2 #### [facility] [place] [facility] [address] [place] [address]504 Monocytes/100 WBC (Bld) 12.0 % Normal 0.0-12.0 [facility] Comment on above: Performed By: #### 2 1-2 #### [facility] ([facility]) [facility] [address] [place] [address] 21411 Neutrophils Absolute 4.71 K/mcL Normal 1.80-7.70 [facility] Comment on above: Performed By: #### 2 1-2 #### [facility] [address] [place] [address] 6[address] Neutrophils/100 WBC (Bld) 57.6 % Normal 38.1-75.5 [facility] Comment on above: Performed By: #### 2 1-2 #### [facility] ([facility] [address] [place] [address] 36177 Platelet mean volume (Bld) [Entitic vol] 13.0 fL High 6.2-12.1 [facility] Comment on above: Performed By: #### 2 1-2 #### [facility] [place] [facility] [address] [place] [address] 77896 Platelets (Bld) [#/Vol] 175 10*3/uL Normal 142-424 [facility] Comment on above: Performed By: #### 2 4321-2 #### [facility] [place] [facility] [address] [place] [address] RBC (Bld) [#/Vol] 3.66 10*6/uL Low 3.74-5.34 [facility] Comment on above: Performed By: #### 2 4321-2 #### [facility] [place] [facility] LAB [address] [place] [address] WBC (Bld) [#/Vol] 8.2 10*3/uL Normal 4.6-10.2 [facility] Comment on above: Performed By: #### 2 4321-2 #### [facility] ([facility] [address] [place] [address] PT Coag (PPP) [Time]on 04-23 INR Coag (PPP) [Relative time] 1.1 {INR} Normal <=5.0 [facility] Comment on above: Result Comment: The recommended therapeutic INR range for most cardiac indications is 2.0-3.0 For high intensity therapy (i.e. mechanical heart valves), the recommended range is 2.5-3.5 Performed By: #### 2 4321-2 #### [facility] [address] [place] [address] Prothrombin timeon PT Coag (PPP) [Time] 13.4 s Normal 11.9-14.7 [facility] Comment on above: Performed By: #### 2 4321-2 #### [facility] [address] [place] [address] 20838 Basic metabolic 2000 panelon 04-22-2022 Anion gap [Moles/Vol] 6 mmol/L Normal 6-18 [facility] Comment on above: Performed By: #### 1 988-5 #### [facility] [address] [place] [address] Calcium [Mass/Vol] 8.3 mg/dL Low 8.9-10.3 [facility] Comment on above: Performed By: #### 1 988-5 #### [facility] [address] [place] [address] Chloride [Moles/Vol] 107 mmol/L Normal 98-107 [facility] Comment on above: Performed By: #### 1 988-5 #### [facility] [address] [place] [address] CO2 [Moles/Vol] 25 mmol/L Normal 22-32 [facility] Comment on above: Performed By: #### 1 988-5 #### [facility] [address] [place] [address] Creatinine [Mass/Vol] 1.06 mg/dL Normal 0.60-1.30 [facility] Comment on above: Performed By: #### 1 988-5 #### [facility] [address] [place] [address] GFR/1.73 sq M.predicted among non-blacks MDRD (S/P/Bld) [Vol rate/Area] 59 mL/min/{1.73_m2} Low >=60 [facility] Comment on above: Result Comment: Effe ctive January 08, 2022, calculation based on the?Chronic Kidney Disease Epidemiology Collaboration (CKD-EPI) equation refit?without adjustment for race. Performed By: #### 1 988-5 #### [facility] [address] [place] [address] Glucose [Mass/Vol] 104 mg/dL High 70-99 [facility] Comment on above: Performed By: #### 1 988-5 #### [facility] [address] [place] [address] Potassium [Moles/Vol] 4.7 mmol/L Normal 3.6-5.1 [facility] Comment on above: Performed By: #### 1 988-5 #### [facility] [address] [place] [address] Sodium [Moles/Vol] 138 mmol/L Normal 136-145 [facility] Comment on above: Performed By: #### 1 988-5 #### [facility] [address] [place] [address] Urea nitrogen [Mass/Vol] 24 mg/dL High 8-20 [facility] Comment on above: Performed By: #### 1 988-5 #### [facility] [address] [place] [address] Urea nitrogen/Creatinine [Mass ratio] 22.6 mg/mg High 12.0-20.0 [facility] Comment on above: Performed By: #### 1 988-5 #### [facility] [address] [place] [address] Anion gap [Moles/Vol] 6 mmol/L 6 - 18 [facility] Calcium [Mass/Vol] 8.3 mg/dL Low 8.9 - 10. 3 mg/dL [facility] Chloride [Moles/Vol] 107 mmol/L 98 - 10 7 mmol/L [facility] CO2 [Moles/Vol] 25 mmol/L 22 - 32 mmol/L [facility] Creatinine [Mass/Vol] 1.06 mg/dL 0.60 - 1.30 mg/dL [facility] GFR/1.73 sq M.predicted among non-blacks MDRD (S/P/Bld) [Vol rate/Area] 59 mL/min/{1.73_m2} Low - [facility] Comment on above: Effective January 08, 2022, calculation based on the Chronic Kidney Disease Epidemiology Collaboration (CKD-EPI) equation refit without adjustment for race. Glucose [Mass/Vol] 104 mg/dL High 70 - 99 mg/dL [facility] Interpretation and review of laboratory results Abnormal [facility] Potassium [Moles/Vol] 4.7 mmol/L 3.6 - 5.1 mmol/L [facility] Sodium [Moles/Vol] 138 mmol/L 136 - 145 mmol/L [facility] Urea nitrogen [Mass/Vol] 24 mg/dL High 8 - 20 mg/dL [facility] Urea nitrogen/Creatinine [Mass ratio] 22.6 mg/mg High 12.0 - 20.0 [facility] Hemogram and platelets WO di fferential panel (Bld)on 04-22-2022 Erythrocyte distribution width (RBC) [Ratio] 16.4 % High 11.0-14.8 [facility] Comment on above: Performed By: #### 1 988-5 #### [facility] [address] [place] [address] Hematocrit (Bld) [Volume fraction] 35.8 % Normal 34.3-47.9 [facility] Comment on above: Performed By: #### 1 988-5 #### [facility] [address] [place] [address]3965 Hemoglobin (Bld) [Mass/Vol] 10.9 g/dL Low 12.0-16.0 [facility] Comment on above: Performed By: #### 1 988-5 #### [facility] [address] [place] [address] 70659 MCH 28.2 pcg Normal 27.0-34.0 [facility] Comment on above: Performed By: #### 1 988-5 #### [facility] [address] [place] [address] 66837 MCHC (RBC) [Mass/Vol] 30.4 g/dL Low 30.8-35.3 [facility] Comment on above: Performed By: #### 1 988-5 #### [facility] [address] [place] [address] 33544 MCV (RBC) [Entitic vol] 92.5 fL Normal 80.0-97.0 [facility] Comment on above: Performed By: #### 1 988-5 #### [facility] [address] [place] [address] 27570 Platelet mean volume (Bld) [Entitic vol] 12.4 fL High 6.2-12.1 [facility] Comment on above: Performed By: #### 1 988-5 #### [facility] [address] [place] [address] 75229 Platelets (Bld) [#/Vol] 158 10*3/uL Normal 142-424 [facility] Comment on above: Performed By: #### 1 988-5 #### [facility] [address] [place] [address] 38254 RBC (Bld) [#/Vol] 3.87 10*6/uL Normal 3.74-5.34 [facility] Comment on above: Performed By: #### 1 988-5 #### [facility] [address] [place] [address] 33049 WBC (Bld) [#/Vol] 9.0 10*3/uL Normal 4.6-10.2 [facility] Comment on above: Performed By: #### 1 988-5 #### [facility] [address] [place] [address] 68780 Erythrocyte distribution width (RBC) [Ratio] 16.4 % High 11.0 - 14.8 % [facility] Hematocrit (Bld) [Volume fraction] 35.8 % 34.3 - 47.9 % [facility] Hemoglobin (Bld) [Mass/Vol] 10.9 g/dL Low 12.0 - 16.0 g/dL [facility] Interpretation and review of laboratory results Abnormal [facility] MCH (RBC) [Entitic mass] 28.[address] [facility] MCHC (RBC) [Mass/Vol] 30.4 g/dL Low 30.8 - 35.3 g/dL [facility] MCV (RBC) [Entitic vol] 92.5 fL [facility] Platelet mean volume (Bld) [Entitic vol] 12.4 fL High [facility] th Platelets (Bld) [#/Vol] 158 10*3/uL [facility] RBC (Bld) [#/Vol] 3.87 10*6/uL [facility] WBC (Bld) [#/Vol] 9.0 10*3/uL [facility] PT Coag (PPP) [Time]on 04-22 INR Coag (PPP) [Relative time] 0.9 {INR} Normal <=5.0 [facility] Comment on above: Result Comment: The recommended therapeutic INR range for most cardiac indications is 2.0-3.0 For high intensity therapy (i.e. mechanical heart valves), the recommended range is 2.5-3.5 Performed By: #### 1 988-5 #### [facility] [address] [place] [address] 95900 INR Coag (PPP) [Relative time] 0.9 {INR} NINF - 5.0 [facility] Comment on above: The recommended ther apeutic INR range for most cardiac indications is 2.0-3.0 For high intensity therapy (i.e. mechanical heart valves), the recommended range is 2.5-3.5 Interpretation and review of laboratory results Normal [facility] PT Coag (Bld) [Time] 12.6 s [facility] Prothrombin timeon 3 PT Coag (PPP) [Time] 12.6 s Normal 11.9-14.7 [facility] Comment on above: Performed By: #### 1 988-5 #### [facility] [address] [place] [address] 99214 SARS-CoV-2 (COVID-19) RNA NA A+probe Ql (Resp)on 04-22-2022 Interpretation and review of laboratory results Normal [facility] SARS-CoV-2 (COVID-19) RdRp gene REBECCA+probe Ql (Resp) Not detected Not Detected [facility] SARS-CoV-2 RNA Resp Ql REBECCA+p robeon 04-22-2022 SARS-CoV-2 (COVID-19) RNA REBECCA+probe Ql (Resp) Not detected Normal Not Detected [facility] Comment on above: Performed By: #### 5 75-1 #### [facility] ([facility] LAB [address] [place] [address] Basic metabolic 2000 panelon 04-21-2022 Anion gap [Moles/Vol] 9 mmol/L Normal 6-18 [facility] Comment on above: Performed By: #### 1 988-5 #### [facility] [address] [place] [address] Calcium [Mass/Vol] 8.2 mg/dL Low 8.9-10.3 [facility] Comment on above: Performed By: #### 1 988-5 #### [facility] [address] [place] [address] Chloride [Moles/Vol] 108 mmol/L High 98-107 [facility] Comment on above: Performed By: #### 1 988-5 #### [facility] [address] [place] [address] CO2 [Moles/Vol] 22 mmol/L Normal 22-32 [facility] Comment on above: Performed By: #### 1 988-5 #### [facility] [address] [place] [address] Creatinine [Mass/Vol] 1.19 mg/dL Normal 0.60-1.30 [facility] Comment on above: Performed By: #### 1 988-5 #### [facility] [address] [place] [address] GFR/1.73 sq M.predicted among non-blacks MDRD (S/P/Bld) [Vol rate/Area] 51 mL/min/{1.73_m2} Low >=60 [facility] Comment on above: Result Comment: Effe ctive January 08, 2022, calculation based on the?Chronic Kidney Disease Epidemiology Collaboration (CKD-EPI) equation refit?without adjustment for race. Performed By: #### 1 988-5 #### [facility] [address] [place] [address] Glucose [Mass/Vol] 135 mg/dL High 70-99 [facility] Comment on above: Performed By: #### 1 988-5 #### [facility] [address] [place] [address] Potassium [Moles/Vol] 4.6 mmol/L Normal 3.6-5.1 [facility] Comment on above: Performed By: #### 1 988-5 #### [facility] [address] [place] [address] 70926 Sodium [Moles/Vol] 139 mmol/L Normal 136-145 [facility] Comment on above: Performed By: #### 1 988-5 #### [facility] [address] [place] [address] 37176 Urea nitrogen [Mass/Vol] 19 mg/dL Normal 8-20 [facility] Comment on above: Performed By: #### 1 988-5 #### [facility] [address] [place] [address] 11077 Urea nitrogen/Creatinine [Mass ratio] 16.0 mg/mg Normal 12.0-20.0 [facility] Comment on above: Performed By: #### 1 988-5 #### [facility] [address] [place] [address] 64909 Anion gap [Moles/Vol] 9 mmol/L 6 - 18 [facility] Calcium [Mass/Vol] 8.2 mg/dL Low 8.9 - 10. 3 mg/dL [facility] Chloride [Moles/Vol] 108 mmol/L High 98 - 10 7 mmol/L [facility] CO2 [Moles/Vol] 22 mmol/L 22 - 32 mmol/L [facility] Creatinine [Mass/Vol] 1.19 mg/dL 0.60 - 1.30 mg/dL [facility] GFR/1.73 sq M.predicted among non-blacks MDRD (S/P/Bld) [Vol rate/Area] 51 mL/min/{1.73_m2} Low - [facility] Comment on above: Effective January 08, 2022, calculation based on the Chronic Kidney Disease Epidemiology Collaboration (CKD-EPI) equation refit without adjustment for race. Glucose [Mass/Vol] 135 mg/dL High 70 - 99 mg/dL [facility] Interpretation and review of laboratory results Abnormal [facility] Potassium [Moles/Vol] 4.6 mmol/L 3.6 - 5.1 mmol/L [facility] Sodium [Moles/Vol] 139 mmol/L 136 - 145 mmol/L [facility] Urea nitrogen [Mass/Vol] 19 mg/dL 8 - 20 mg/dL [facility] Urea nitrogen/Creatinine [Mass ratio] 16.0 mg/mg 12.0 - 20.0 [facility] Hemogram and platelets WO di fferential panel (Bld)on 04-21-2022 Erythrocyte distribution width (RBC) [Ratio] 15.9 % High 11.0-14.8 [facility] Comment on above: Performed By: #### 1 988-5 #### [facility] [address] [place] [address] 71402 Hematocrit (Bld) [Volume fraction] 37.0 % Normal 34.3-47.9 [facility] Comment on above: Performed By: #### 1 988-5 #### [facility] [address] [place] [address] Hemoglobin (Bld) [Mass/Vol] 11.6 g/dL Low 12.0-16.0 [facility] Comment on above: Performed By: #### 1 988-5 #### [facility] [address] [place] [address] 39267 MCH 28.2 pcg Normal 27.0-34.0 [facility] Comment on above: Performed By: #### 1 988-5 #### [facility] [address] [place] [address] MCHC (RBC) [Mass/Vol] 31.4 g/dL Normal 30.8-35.3 [facility] Comment on above: Performed By: #### 1 988-5 #### [facility] [address] [place] [address] 17955 MCV (RBC) [Entitic vol] 90.0 fL Normal 80.0-97.0 [facility] Comment on above: Performed By: #### 1 988-5 #### [facility] [address] [place] [address] 85788 Platelet mean volume (Bld) [Entitic vol] 12.3 fL High 6.2-12.1 [facility] Comment on above: Performed By: #### 1 988-5 #### [facility] [address] [place] [address] 05112 Platelets (Bld) [#/Vol] 220 10*3/uL Normal 142-424 [facility] Comment on above: Performed By: #### 1 988-5 #### [facility] [address] [place] [address] 00297 RBC (Bld) [#/Vol] 4.11 10*6/uL Normal 3.74-5.34 [facility] Comment on above: Performed By: #### 1 988-5 #### [facility] [address] [place] [address] 81485 WBC (Bld) [#/Vol] 13.5 10*3/uL High 4.6-10.2 [facility] Comment on above: Performed By: #### 1 988-5 #### [facility] [address] [place] [address] 81974 Erythrocyte distribution width (RBC) [Ratio] 15.9 % High 11.0 - 14.8 % [facility] Hematocrit (Bld) [Volume fraction] 37.0 % 34.3 - 47.9 % [facility] Hemoglobin (Bld) [Mass/Vol] 11.6 g/dL Low 12.0 - 16.0 g/dL [facility] Interpretation and review of laboratory results Abnormal [facility] MCH (RBC) [Entitic mass] 28.[address] [facility] MCHC (RBC) [Mass/Vol] 31.4 g/dL 30.8 - 35.3 g/dL [facility] MCV (RBC) [Entitic vol] 90.[address] [facility] Platelet mean volume (Bld) [Entitic vol] 12.3 fL High [facility] th Platelets (Bld) [#/Vol] 220 10*3/uL [facility] RBC (Bld) [#/Vol] 4.11 10*6/uL [facility] WBC (Bld) [#/Vol] 13.5 10*3/uL High [facility] Pathology studyOrdered By: Valerie Segura on 04-21-2022 Citation Rick (Reference lab test) s8lkgOMfEDWtyRElSOGaI NfzzcDzXFLgrUWmI4Vqzi xdNGhaLE4aQJ9nuKeweGY hsRTsLGXcOcFxv6wnp487 tDNpe0fpZFTAxveesDu3a 7fuLNLBBXtxZWHXNZb9nZ sdD11cm7O0IotjK6rrBDC kMSiucoNhhnW5PKLteISi FLf2SCTavPRuqeTiBpSqR VCdrUQzkBK3ERIfNB2wse quOEtbFYamSTDbbmZ6VAM njXHmG5PuMTPjWO0wgbaf REY4HTfoSWPvVSX4ZsBvA ZOtt9Kvyhl3ZuSbeJMvXR xwbGFpblxpXGYxXGZzMTh sI0UuXQKmHMH2TMKvotsg SKbbZ65uzM8gPQ85DAaxv rYuQCGxv6ZhZKWeBVSkKH frPYDvqhNqCCxdzH1ua2k 5EBdbNb6vQBNwnhqbFOU2 DjEwMB44FtlzuRYaZGLEa mUsIENvbHVtYnVzLCBPaG liRIRwKjA5TnBApSFlx9I ec5GfMoVryONczD0xvAyf knP6GFWepYYgMj9zwVWqD lxwYXJ9 [employer] Work Phone: Microscopic description Rick (Endomyocardium) e8dbjXMsEPMboZVCHJMwV QHtMD1jjUhtiFw6aYaaXM VgunK9bXRkVIuom6sdBEF 3e4gveyOOUtofVFHuLZ6z ZUviVCTyEY7vGcLyCPGxK mYyXHBhcGVydzEyMjQwXH SxqAGxaZJ5YBWaXS3hgto yLFywIEmgGQWfbbW3MVAl wIBwZ5HyXCGxEL5gquawN QF9AUIFCzorTc2hbOZltE ANCntcZjFcZmNoYXJzZXQ hAVMiwVkjANZzUSi2sJ7O m8zeFpveX8wprmUcvXVzO b6vfPCSLLddWSKWINi9nB 5FRVMiK1OkSK7Zx1puMFC yvLDdRGE1MOnmc0qwEVlq BIR3SAEfHJCwDFOjBD4UI jCaDAEmGcM3UtI8LyG7WZ k8XSAJYSEtCZo5ZtekMAr 4HUp1ULcqqaauQTn0PRTt PIjdnWOdSO2frDclYgujo Bygg3UnwTLpSSRrYZuhaT QgNTEwMDIgXFxkYiBPVlI tNaJsLKh8LDzuTFTpIVj1 TWmuU7YKEIZxFXI7IbIjU MCoSwI4OQf7DUEIXv9nFj X3QrIvMJD7AeT6XFFwMQH cXHQgMiBcXHNzIDMgXFxm kWWfUI0zrHfxDYCqAR7CY HBsYWluXGYxXGZzMjAgQS 5kN29pHSfwADGxuEnjXeF dACTdqIPviSXiqCYtz5F3 yVQyDMe3eMPij1V5pBhtL GluZmlsdHJhdGVzOlxwYX IgDQpccGFyZCANClxwbGF pblxmMVxmczIwXHBsYWlu WVg6pmSbRIDbGbEhQFOdU 96to2KFx7DbEG1ALSi9po PcxpxjuZ8xXQYotzGcTRd cZjFcZnMyMCBSZWNlaXZl KFNkjcCjh4VfGJewfiUyZ LXskZCkFWpjhQemgJT2xV MkmESxBZ8sOZUrLYEyHEJ 3dCXzu3D0GCEezpw3RCYl lBqipsMscN2fbH5bcMRwK yBpbmZpbHRyYXRlcywgbG VmdCBrbmVlIiBpcyBhIDM mQ80hZPhnirYtSWFsFI3d EQA2m3h5PGHybi7qvfN4R MUrKiViT0ZlrIvdNVquvs 13pxF6eBGxiCToZSYDeCX fn2RtS9jvGH5grXEvpqKj prPgIR68EBXwfyMhqMBak ZCjeKT9ZEXydZ7iRgyhN2 sgQTEuXHBhciANClxwYXI kRYppt1GxGXnydNsrBJSi XbCsLLsfhmk5TH4KRXAyJ FxlcGljWHNhMCANClxlcG nvTbOloTGaXvW8OUQvwWY jHQZ7NT5wkRjoQOGlT6Sr G8SyyjI8FWQcouQSIalnP gqzdbWiXO5ShJ== [employer] Work Phone: Pathology report final diagnosis Narrative o4rceOJmMVRptNTbOMMkL SfmhtWhXMAdkUPaU8Hsfi vtQRrkNQ8vLZ6deLrwiTV huKPaYNBuBaXfc2uwv026 mGLem4vpEMHAqutehBt6u SkyN97bg6F0RygfO8pwRO QwXGdyZWVuMFxibHVlMDt 9XHBhcGVydzEyMjQwXHBh nRMsqMB3OMDvEJ7eketoJ TjyHOqlWKVzllZ0YRQboJ EgU5XjBYHyUW7fclxiJUB 3VAipHDCpXUB6PpOwSQLl p1Mhffr9GfNfjVh3s5wpY KGmOPMopBsmu7fuBFD9RE PuhQEeI8xxuS2uFZAlJO3 zebrii5kfMAzpYZkbCRDf dSJ6dxX4IHIqrKVeA1Alv F5vCEDsQDAnyzLrgKcgHc F2LCoatEMijjvrPsOhM19 xkDY6zQUbuGZfRUmaUgYa G6tbQTUfchvhvPVgQUZpL GPBuNnqRQ8upyFzXWXhKb fwEPioNmjnkU1mfWokwp1 ccGFyICAgLSBOZWdhdGl2 EZCdb8Omm6xmaajugWCgx yJdtQEcmUNfq9S5vAIzDS d9lKDqb6D2hDcuPUrmRsm avD6bfSokwx7baAArjD== [employer] Phone: [employer] Phone: Bacteria Spec Anaerobe Culto n 04-20-2022 Bacteria identified Anaer cx Nom (Unsp spec) Culture, Anaerobic Status = F No anaerobes grown after 4 days. Normal [facility] Comment on above: Performed By: #### 3 4556-1 #### [facility] [address] [place] [address] Performed By: #### 5 75-1 #### [facility] ([facility] LAB [address] [place] [address] Bacteria identified Anaer cx Nom (Unsp spec) Culture, Anaerobic Status = F No anaerobes grown after 4 days. Normal [facility] Comment on above: Performed By: #### 3 4556-1 #### [facility] [address] [place] [address] Bacteria Spec BFld Culton Bacteria identified Sterile body fluid culture Nom (Unsp spec) Fluid Culture Status = F No growth at 3 days Gram Stain Result Status = F No Polymorphonuclear leukocytes This is an appended report. These results have been appended to a previously preliminary verified report. No Epithelial cells This is an appended report. These results have been appended to a previously preliminary verified report. No organisms seen This is an appended report. These results have been appended to a previously preliminary verified report. Normal [facility] Comment on above: Performed By: #### 6 36-1 #### [facility] ([facility] LAB [address] [place] [address] Bacteria Tiss Culton 023 Bacteria identified Cx Nom (Tiss) Culture, Tissue Status = F No growth at 3 days Gram Stain Result Status = F No Polymorphonuclear leukocytes This is an appended report. These results have been appended to a previously preliminary verified report. No Epithelial cells This is an appended report. These results have been appended to a previously preliminary verified report. No organisms seen This is an appended report. These results have been appended to a previously preliminary verified report. Normal [facility] Comment on above: Performed By: #### 3 4556-1 #### [facility] [address] [place] [address] Performed By: #### 5 75-1 #### [facility] ([facility] [address] [place] [address] Cell count panel (Body fld)o n 04-20-2022 Fluid Eosinophils 4.0 % Normal [facility] [facility] Comment on above: Performed By: #### 1 988-5 #### [facility] [address] [place] [address] Fluid Lining Cells 1.0 % Normal [facility] Comment on above: Performed By: #### 1 988-5 #### [facility] [address] [place] [address] Fluid Lymphocytes 46.0 % Normal [facility] Comment on above: Performed By: #### 1 988-5 #### [facility] [address] [place] [address] Fluid Monocytes/Macrophages 24.0 % Normal [facility] Comment on above: Performed By: #### 1 988-5 #### [facility] [address] [place] [address] Fluid Neutrophils 25.0 % Normal [facility] Comment on above: Performed By: #### 1 988-5 #### [facility] [address] [place] [address] Clarity (Body fld) [facility]y [employer] [facility] Color (Body fld) [place] [employer] RBC Auto (Body fld) [#/Vol] 91573 /mm3 [facility] [employer] Comment on above: The reference range and other method performance specifications have not been established for this fluid specimen. The test result should be integrated into the clinical context for interpretation. Specimen source Nom (Body fld) Synovial [employer] WBC (Body fld) [#/Vol] 111 /mm3 [employer] Comment on above: The reference range and other method performance specifications have not been established for this fluid specimen. The test result should be integrated into the clinical context for interpretation. [employer] Differential panel (Body fld )Ordered By: Valarie Delacruz on 04-20-2022 Eosinophils/100 WBC Manual cnt (Body fld) 4.0 % [facility] Fluid Lining Cells 1.0 % [facility] Lymphocytes/100 WBC Manual cnt (Body fld) 46.0 % [facility] Monocytes+Macrophages /100 WBC (Body fld) 24.0 % [facility] th Neutrophils/100 WBC (Body fld) 25.0 % [facility] Fungus Skin Culton 3 Fungus identified Cx Nom (Skin) Culture, Fungus Status = F No growth at 4 weeks Normal [facility] Comment on above: Performed By: #### 5 75-1 #### [facility] ([facility] [address] [place] [address] Performed By: #### 3 4556-1 #### [facility] [address] [place] [address] Fungus identified Cx Nom (Skin) Culture, Fungus Status = F No growth at 4 weeks Normal [facility] Comment on above: Performed By: #### 5 75-1 #### [facility] ([facility] [address] [place] [address] Glucose Auto test strip (Bld ) [Mass/Vol]on 04-20-2022 Glucose [Mass/Vol] 135 mg/dL High 70-99 [facility] Comment on above: Performed By: #### 1 988-5 #### [facility] [address] [place] [address] Glucose [Mass/Vol] 135 mg/dL High 70 - 99 mg/dL [facility] Interpretation and review of laboratory results Abnormal [facility] Mycobacterium Spec Culton Mycobacterium sp identified Org specific cx Nom (Unsp spec) Culture AFB Status = F No growth at 8 weeks AFB Stain Status = F No acid fast bacilli seen Normal [facility] Comment on above: Performed By: #### 5 43-9 #### [facility] ([facility] [address] [place] [address] Performed By: #### 3 4556-1 #### [facility] [address] [place] [address] Performed By: #### 5 75-1 #### [facility] ([facility] [address] [place] [address] Mycobacterium sp identified Org specific cx Nom (Unsp spec) Culture AFB Status = F No growth at 8 weeks AFB Stain Status = F No acid fast bacilli seen Normal [facility] Comment on above: Performed By: #### 5 75-1 #### [facility] [place] [facility] [address] [place] [address] No Panel InformationOrdered By: Hilary Albarran on 04-20-2022 [facility] [employer] PT Coag (PPP) [Time]on 04-20 aPTT Coag (Bld) [Time] 22.0 s Low 23.3-35.3 [facility] Comment on above: Performed By: #### 1 988-5 #### [facility] [place] [facility] [address] [place] [address] PT Coag (PPP) [Time]Ordered By: Hilary Albarran on 04-20-2022 INR Coag (PPP) [Relative time] 1.0 {INR} NINF - 5.0 [facility] Comment on above: The recommended ther apeutic INR range for most cardiac indications is 2.0-3.0 For high intensity therapy (i.e. mechanical heart valves), the recommended range is 2.5-3.5 Interpretation and review of laboratory results Normal [facility] PT Coag (Bld) [Time] 13.4 s [facility] Pathology studyon 04-20-2022 Pathology study Soft tissue, left [place]: - Mild nonspecific inflammation. - Negative for significant perivascular lymphocytic inflammation. A. Knee, Left, Rule out perivascular lymphocytic infiltrates: Received in formalin labeled with patient name and rule out perivascular lymphocytic infiltrates, left knee is a 3 cm aggregate of dusky rogers-trujillo fibrocartilaginous tissue. The specimen is representatively submitted in block A1. (zhw) The technical component was performed at [facility], [address] [place], [place] [address]. Microscopic examination was performed. Normal [facility] Comment on above: Performed By: #### 1 1526-1 #### [facility] [address] [place] [address] 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 Air within the surrounding soft tissues, surgical drain and skin elvira anteriorly, consistent with recent postoperative state. No acute fracture or dislocation is visualized. Atherosclerotic calcifications. -------- FINAL REPORT -------- Dictated By: Heriberto Saldana Dictated Date: 04/20/2022 16:06 Assigned Physician: Heriberto Saldana Reviewed and Electronically Signed By: Heriberto Saladna Signed Date: 04/20/2022 16:07 Workstation ID: [id number] Transcribed By: Self Edit Transcribed Date: 04/20/2022 16:06 Normal [facility] XR Knee 1-2 Views Lefton FINDINGS/IMPRESSION: Status post LEFT total knee arthroplasty revision utilizing longstem interlocking femoral and tibial components. Air within the surrounding soft tissues, surgical drain and skin elvira anteriorly, consistent with recent postoperative state. No acute fracture or dislocation is visualized. Atherosclerotic calcifications. -------- FINAL REPORT -------- Dictated By: Heriberto Saldana Dictated Date: 04/20/2022 16:06 Assigned Physician: Heriberto Saldana Reviewed and Electronically Signed By: Heriberto Saldana Signed Date: 04/20/2022 16:07 Workstation ID: [id number] Transcribed By: Self Edit Transcribed Date: 04/20/2022 16:06 POWERSCRIBE EXAMINATION TYPE: XR KNEE 1-2 VIEWS LEFT DATE OF EXAM : 04/20/2022 3:57 PM HISTORY: post op pacu knee revision COMPARISON: 01/03/2021 Heriberto Hart MD - 04/20/2022 EXAMINATION TYPE: XR KNEE 1-2 VIEWS LEFT DATE OF EXAM : 04/20/2022 3:57 PM HISTORY: post op pacu knee revision COMPARISON: 01/03/2021 IMPRESSION: FINDINGS/IMPRESSION: Status post LEFT total knee arthroplasty revision utilizing longstem interlocking femoral and tibial components. Air within the surrounding soft tissues, surgical drain and skin elvira anteriorly, consistent with recent postoperative state. No acute fracture or dislocation is visualized. Atherosclerotic calcifications. -------- FINAL REPORT -------- Dictated By: Heriberto Saldana Dictated Date: 04/20/2022 16:06 Assigned Physician: Heriberto Saldana Reviewed and Electronically Signed By: Heriberto Saldana Signed Date: 04/20/2022 16:07 Workstation ID: [id number] Transcribed By: Self Edit Transcribed Date: 04/20/2022 16:06 [employer] Radiology Study observation (narrative) [employer] XR Knee 1-2 Views LeftOrdere d By: Heriberto Saldana on 04-20-2022 [employer] Work Phone: aPTT Coag (Bld) [Time]on aPTT Coag (PPP) [Time] 22.0 s Low [employer] Interpretation and review of laboratory results Abnormal [employer] Covid-19 PCR (CVDTBH)on 04-02 SARS-CoV-2 (COVID-19) RNA REBECCA+probe Ql (Unsp spec) Not detected Normal NOT DETECTED [facility] Comment on above: Result Comment: When diagnostic testing is negative, the possibility of a false negative should be considered in the context of a patient's recent exposures and the presence of clinical signs and symptoms consistent with SARS-CoV-2. This test is not yet approved or cleared by the [place] FDA. When there are no FDA-approved or cleared tests available, and other criteria are met, FDA can make tests available under an emergency access mechanism called an Emergency Use Authorization (EUA). The EUA for this test is supported by the [place] of Health and Human Service's declaration that circumstances exist to justify the emergency use of in vitro diagnostics for the detection and/or diagnosis of the virus that causes COVID-19. This EUA will remain in effect for the duration of the COVID-19 declaration justifying emergency of IVDs, unless it is terminated or revoked by the FDA (after which the test may no longer be used). Performed By: #### C #### [facility] [address] [place], [place] [address] Dr. Jeffrey Thomas Bacteria Spec Anaerobe Culto n 04-05-2022 Bacteria identified Anaer cx Nom (Unsp spec) Culture, Anaerobic Status = F No anaerobes grown after 4 days. Normal [facility] Comment on above: Performed By: #### 5 75-1 #### [facility] ([facility] [address] [place] [address] Bacteria Spec BFld Culton Bacteria identified Sterile body fluid culture Nom (Unsp spec) Fluid Culture Status = F No growth at 3 days Gram Stain Result Status = F No Polymorphonuclear leukocytes This is an appended report. These results have been appended to a previously preliminary verified report. No Epithelial cells This is an appended report. These results have been appended to a previously preliminary verified report. No organisms seen This is an appended report. These results have been appended to a previously preliminary verified report. Normal [facility] Comment on above: Performed By: #### 5 75-1 #### [facility] ([facility] [address] [place] [address] Blood type and Indirect anti body screen panel (Bld)on 04-05-2022 ABO group Nom (Bld) A Normal [facility] Comment on above: Performed By: #### 3 4532-2 #### [facility] [address] [place] [address] Rh Type Positive Normal [facility] Comment on above: Performed By: #### 3 4532-2 #### [facility] [address] [place] [address] CRP [Mass/Vol]on 04-05-2022 Anion gap [Moles/Vol] 9 mmol/L Normal 6-18 Ar[facility] Comment on above: Performed By: #### 1 988-5 #### [facility] [address] [place] [address] Calcium [Mass/Vol] 9.4 mg/dL Normal 8.9-10.3 [facility] Comment on above: Performed By: #### 1 988-5 #### [facility] [address] [place] [address] Chloride [Moles/Vol] 105 mmol/L Normal 98-107 [facility] Comment on above: Performed By: #### 1 988-5 #### [facility] [address] [place] [address] CO2 [Moles/Vol] 24 mmol/L Normal 22-32 [facility] Comment on above: Performed By: #### 1 988-5 #### [facility] [address] [place] [address] Creatinine [Mass/Vol] 1.07 mg/dL Normal 0.60-1.30 Arin [facility] Comment on above: Performed By: #### 1 988-5 #### [facility] [address] [place] [address] GFR/1.73 sq M.predicted among non-blacks MDRD (S/P/Bld) [Vol rate/Area] 58 mL/min/{1.73_m2} Low >=60 [facility] Comment on above: Result Comment: Effe ctive January 08, 2022, calculation based on the?Chronic Kidney Disease Epidemiology Collaboration (CKD-EPI) equation refit?without adjustment for race. Performed By: #### 1 988-5 #### [facility] [address] [place] [address] Glucose [Mass/Vol] 97 mg/dL Normal 70-99 [facility] Comment on above: Performed By: #### 1 988-5 #### [facility] [address] [place] [address] Potassium [Moles/Vol] 4.9 mmol/L Normal 3.6-5.1 Arin [facility] Comment on above: Performed By: #### 1 988-5 #### [facility] [address] [place] [address] Sodium [Moles/Vol] 138 mmol/L Normal 136-145 [facility] Comment on above: Performed By: #### 1 988-5 #### [facility] [address] [place] [address] Urea nitrogen [Mass/Vol] 22 mg/dL High 8-20 [facility] Comment on above: Performed By: #### 1 988-5 #### [facility] [address] [place] [address] Urea nitrogen/Creatinine [Mass ratio] 20.6 mg/mg High 12.0-20.0 [facility] Comment on above: Performed By: #### 1 988-5 #### [facility] [address] [place] [address] Cell count panel (Body fld)o n 04-05-2022 Fluid Eosinophils 3.0 % Normal [facility] Comment on above: Result Comment: Boy ected result: Previously reported as 6.0 % on 04/05/2022 at 1416 EST. Performed By: #### 3 4556-1 #### [facility] [address] [place] [address] Fluid Lymphocytes 34.0 % Normal [facility] Comment on above: Result Comment: Boy ected result: Previously reported as 43.0 % on 04/05/2022 at 1416 EST. Performed By: #### 3 4556-1 #### [facility] [address] [place] [address] Fluid Monocytes/Macrophages 23.0 % Normal [facility] Comment on above: Result Comment: Boy ected result: Previously reported as 9.0 % on 04/05/2022 at 1416 EST. Performed By: #### 3 4556-1 #### [facility] [address] [place] [address] Fluid Neutrophils 40.0 % Normal [facility] Comment on above: Result Comment: Boy ected result: Previously reported as 39.0 % on 04/05/2022 at 1416 EST. Performed By: #### 3 4556-1 #### [facility] [address] [place] [address] Fluid Other Cells Normal [facility] Comment on above: Result Comment: Lini ng cells Corrected result: Previously reported as 3.0 % on 04/05/2022 at 1416 EST. Performed By: #### 3 4556-1 #### [facility] [address] [place] [address] Fungus Skin Culton Fungus identified Cx Nom (Skin) Culture, Fungus Status = F No growth at 4 weeks Normal [facility] Comment on above: Performed By: #### 3 4556-1 #### [facility] [address] [place] [address] Hemogram and platelets WO di fferential panel (Bld)on 04-05-2022 Sed Rate 41 mm/hr High 0-20 [facility] Comment on above: Performed By: #### 5 75-1 #### [facility] [address] [place] [address] Mycobacterium Spec Culton Mycobacterium sp identified Org specific cx Nom (Unsp spec) Culture AFB Status = F No growth at 8 weeks AFB Stain Status = F No acid fast bacilli seen Normal [facility] Comment on above: Performed By: #### 1 988-5 #### [facility] [address] [facility] [place] [address] Basic metabolic 2000 panelon 01-05-2022 Anion gap [Moles/Vol] 12 mmol/L [facility] [employer] Calcium [Mass/Vol] 9.1 mg/dL 8.9 - 10. 3 mg/dL [facility] Chloride [Moles/Vol] 103 mmol/L 98 - 10 7 mmol/L [facility] CO2 [Moles/Vol] 19 mmol/L Low 22 - 32 mmol/L [facility] Creatinine [Mass/Vol] 1.28 mg/dL 0.60 - 1.30 mg/dL [employer] GFR/1.73 sq M.predicted MDRD (S/P/Bld) [Vol rate/Area] 44 mL/min/{1.73_m2} Low >=60 mL/min/1.73m 2 [employer] Glucose [Mass/Vol] 99 mg/dL 70 - 99 mg/dL [employer] Interpretation and review of laboratory results Abnormal [employer] Potassium [Moles/Vol] 5.1 mmol/L 3.6 - 5.1 mmol/L [employer] Sodium [Moles/Vol] 134 mmol/L Low 136 - 145 mmol/L [facility] [employer] Urea nitrogen [Mass/Vol] 34 mg/dL High 8 - 20 mg/dL [employer] Urea nitrogen/Creatinine [Mass ratio] 26.6 mg/mg High [facility] Hemogram and platelets WO di fferential panel (Bld)on 01-05-2022 Basophils (Bld) [#/Vol] 0.10 10*3/uL [employer] Basophils/100 WBC (Bld) 0.8 % 0.0 - 2.0 % [employer] Eosinophils (Bld) [#/Vol] 0.29 10*3/uL [employer] Eosinophils/100 WBC (Bld) 2.3 % 0.0 - 7.0 % [employer] Erythrocyte distribution width (RBC) [Ratio] 15.8 % High 11.0 - 14.8 % [employer] Hematocrit (Bld) [Volume fraction] 35.6 % 34.3 - 47.9 % [facility] Hemoglobin (Bld) [Mass/Vol] 10.7 g/dL Low 12.0 - 16.0 g/dL [facility] Immature granulocytes (Bld) [#/Vol] 0.06 10*3/uL [facility] Immature granulocytes/100 WBC (Bld) 0.5 % 0.0 - 1.2 % [facility] Interpretation and review of laboratory results Abnormal [facility] Lymphocytes (Bld) [#/Vol] 2.80 10*3/uL [facility] Lymphocytes/100 WBC (Bld) 22.1 % 17.9 - 49.6 % [facility] MCH (RBC) [Entitic mass] 31.6 pg [facility] MCHC (RBC) [Mass/Vol] 30.1 g/dL Low 30.8 - 35.3 g/dL [facility] MCV (RBC) [Entitic vol] 105.0 fL High [facility] Monocytes (Bld) [#/Vol] 1.54 10*3/uL High [facility] Monocytes/100 WBC (Bld) 12.2 % High 0.0 - 12.0 % [facility] Neutrophils (Bld) [#/Vol] 7.88 10*3/uL High [facility] Neutrophils/100 WBC (Bld) 62.1 % 38.1 - 75.5 % [facility] Platelet mean volume (Bld) [Entitic vol] 11.8 fL [facility] Platelets (Bld) [#/Vol] 194 10*3/uL [facility] RBC (Bld) [#/Vol] 3.39 10*6/uL Low [facility] WBC (Bld) [#/Vol] 12.7 10*3/uL High [facility] Manual Differential panel (B ld)on 01-05-2022 Eosinophils (Bld) [#/Vol] 0.13 10*3/uL [facility] Eosinophils/100 WBC (Bld) 1.0 % 0.0 - 7.0 % [facility] Interpretation and review of laboratory results Abnormal [facility] Lymphocytes (Bld) [#/Vol] 2.54 10*3/uL [facility] Lymphocytes/100 WBC (Bld) 20.0 % 17.9 - 49.6 % [facility] Monocytes (Bld) [#/Vol] 1.02 10*3/uL High [facility] Monocytes/100 WBC (Bld) 8.0 % 0.0 - 12.0 % [facility] [employer] Segmented neutrophils (Bld) [#/Vol] 9.02 10*3/uL High [facility] Segmented neutrophils/100 WBC (Bld) 71.0 % 38.1 - 75.5 % [facility] PT Coag (PPP) [Time]on 01-05 INR Coag (PPP) [Relative time] 1.0 {INR} <=5.0 [facility] Comment on above: The recommended ther apeutic INR range for most cardiac indications is 2.0-3.0 For high intensity therapy (i.e. mechanical heart valves), the recommended range is 2.5-3.5 Interpretation and review of laboratory results Normal [facility] PT Coag (Bld) [Time] 13.0 s [facility] [employer] Basic metabolic 2000 panelon 01-04-2022 Anion gap [Moles/Vol] 9 mmol/L [facility] [employer] Calcium [Mass/Vol] 8.9 mg/dL 8.9 - 10. 3 mg/dL [facility] Chloride [Moles/Vol] 103 mmol/L 98 - 10 7 mmol/L [facility] CO2 [Moles/Vol] 21 mmol/L Low 22 - 32 mmol/L [facility] Creatinine [Mass/Vol] 1.00 mg/dL 0.60 - 1.30 mg/dL [facility] GFR/1.73 sq M.predicted MDRD (S/P/Bld) [Vol rate/Area] 59 mL/min/{1.73_m2} Low >=60 mL/min/1.73m 2 [facility] Glucose [Mass/Vol] 129 mg/dL High 70 - 99 mg/dL [facility] Interpretation and review of laboratory results Abnormal [facility] Potassium [Moles/Vol] 5.0 mmol/L 3.6 - 5.1 mmol/L [facility] Sodium [Moles/Vol] 133 mmol/L Low 136 - 145 mmol/L [facility] Urea nitrogen [Mass/Vol] 26 mg/dL High 8 - 20 mg/dL [facility] Urea nitrogen/Creatinine [Mass ratio] 26.0 mg/mg High [facility] Hemogram and platelets WO di fferential panel (Bld)on 01-04-2022 Basophils (Bld) [#/Vol] 0.03 10*3/uL [facility] Basophils/100 WBC (Bld) 0.2 % 0.0 - 2.0 % [facility] Eosinophils (Bld) [#/Vol] 0.08 10*3/uL [facility] Eosinophils/100 WBC (Bld) 0.5 % 0.0 - 7.0 % [facility] Erythrocyte distribution width (RBC) [Ratio] 15.5 % High 11.0 - 14.8 % [facility] Hematocrit (Bld) [Volume fraction] 34.0 % Low 34.3 - 47.9 % [facility] Hemoglobin (Bld) [Mass/Vol] 10.8 g/dL Low 12.0 - 16.0 g/dL [facility] Immature granulocytes (Bld) [#/Vol] 0.07 10*3/uL [facility] Immature granulocytes/100 WBC (Bld) 0.5 % 0.0 - 1.2 % [facility] Interpretation and review of laboratory results Abnormal [facility] Lymphocytes (Bld) [#/Vol] 2.40 10*3/uL [facility] Lymphocytes/100 WBC (Bld) 16.5 % Low 17.9 - 49.6 % [facility] MCH (RBC) [Entitic mass] 31.9 pg [facility] MCHC (RBC) [Mass/Vol] 31.8 g/dL 30.8 - 35.3 g/dL [facility] MCV (RBC) [Entitic vol] 100.3 fL High [facility] Monocytes (Bld) [#/Vol] 1.52 10*3/uL High [facility] Monocytes/100 WBC (Bld) 10.4 % 0.0 - 12.0 % [facility] Neutrophils (Bld) [#/Vol] 10.45 10*3/uL High [facility] Neutrophils/100 WBC (Bld) 71.9 % 38.1 - 75.5 % [facility] Platelet mean volume (Bld) [Entitic vol] 11.5 fL [facility] Platelets (Bld) [#/Vol] 271 10*3/uL [facility] RBC (Bld) [#/Vol] 3.39 10*6/uL Low [facility] WBC (Bld) [#/Vol] 14.6 10*3/uL High [facility] [employer] Manual Differential panel (B ld)on 01-04-2022 Interpretation and review of laboratory results Abnormal [facility] Lymphocytes (Bld) [#/Vol] 2.77 10*3/uL [facility] Lymphocytes/100 WBC (Bld) 19.0 % 17.9 - 49.6 % [facility] Monocytes (Bld) [#/Vol] 1.31 10*3/uL High [facility] Monocytes/100 WBC (Bld) 9.0 % 0.0 - 12.0 % [facility] Segmented neutrophils (Bld) [#/Vol] 10.51 10*3/uL High [facility] Segmented neutrophils/100 WBC (Bld) 72.0 % 38.1 - 75.5 % [facility] [employer] PT Coag (PPP) [Time]Ordered By: Hilary Albarran on 01-04-2022 INR Coag (PPP) [Relative time] 0.9 {INR} <=5.0 [facility] Comment on above: The recommended ther apeutic INR range for most cardiac indications is 2.0-3.0 For high intensity therapy (i.e. mechanical heart valves), the recommended range is 2.5-3.5 Interpretation and review of laboratory results Normal [facility] PT Coag (Bld) [Time] 12.6 s [facility] [employer] Glucose Auto test strip (Bld ) [Mass/Vol]on 01-03-2022 Glucose [Mass/Vol] 144 mg/dL High 70 - 99 mg/dL [facility] Interpretation and review of laboratory results Abnormal [facility] [employer] Covid-19 PCR (CVDTBH)on SARS-CoV-2 (COVID-19) RNA REBECCA+probe Ql (Unsp spec) Not detected Normal NOT DETECTED [facility] Comment on above: Result Comment: When diagnostic testing is negative, the possibility of a false negative should be considered in the context of a patient's recent exposures and the presence of clinical signs and symptoms consistent with SARS-CoV-2. This test is not yet approved or cleared by the [place] FDA. When there are no FDA-approved or cleared tests available, and other criteria are met, FDA can make tests available under an emergency access mechanism called an Emergency Use Authorization (EUA). The EUA for this test is supported by the [place] of Health and Human Service's declaration that circumstances exist to justify the emergency use of in vitro diagnostics for the detection and/or diagnosis of the virus that causes COVID-19. This EUA will remain in effect for the duration of the COVID-19 declaration justifying emergency of IVDs, unless it is terminated or revoked by the FDA (after which the test may no longer be used). Performed By: #### C MP #### [facility] [address] [place] [address] Dr. Jeffrey Thomas CBC AUTO DIFFon 12-14-2021 BASO # 0.1 103/ul Normal 0.0-0.1 [facility] Comment on above: Performed By: #### T 4LC #### [facility] [address] [place] [address] Dr. Jeffrey Thomas Basophils/100 WBC (Bld) 1.2 % Normal 0.2-2.0 [facility] Comment on above: Performed By: #### T 4LC #### [facility] [address] [place] [address] Dr. Jeffrey Thomas EO # 0.2 103/ul Normal 0.0-0.7 [facility] Comment on above: Performed By: #### T 4LC #### [facility] [address] [place] [address] Dr. Jeffrey Thomas Eosinophils/100 WBC (Bld) 3.2 % Normal 0.9-7.[address] [facility] Comment on above: Performed By: #### T 4LC #### [facility] [address] [place] [address] Dr. Jeffrey Thomas Erythrocyte distribution width (RBC) [Ratio] 15.9 % Critically high 11.0-15.[address] [facility] Comment on above: Performed By: #### T 4LC #### [facility] [address] [place] [address] Dr. Jeffrey Thomas Hematocrit (Bld) [Volume fraction] 35.1 % Critically low 36.0-48.[address] [facility] Comment on above: Performed By: #### T 4LC #### [facility] [address] [place] [address] Dr. Jeffrey Thomas Hemoglobin (Bld) [Mass/Vol] 10.8 g/dL Critically low 12.0-16.0 [facility] Comment on above: Performed By: #### 4LC #### [facility] [address] [place] [address] Dr. Jeffrey Thomas IG # 0.03 10e3/ul Normal 0.00-0.03 [facility] Comment on above: Performed By: #### 4LC #### [facility] [address] [place] [address] Dr. Jeffrey Thomas IG % 0.4 % Normal 0.0-0.5 [facility] Comment on above: Performed By: #### 4LC #### [facility] [address] [place] [address] Dr. Jeffrey Thomas LYMPH # 2.1 103/ul Normal 1.2-3.8 [facility] Comment on above: Performed By: #### 4LC #### [facility] [address] [place] [address] Dr. Jeffrey Thomas Lymphocytes/100 WBC (Bld) 30.8 % Normal 20.5-60.0 [facility] Comment on above: Performed By: #### 4LC #### [facility] [address] [place] [address] Dr. Jeffrey Thomas MANUAL DIFF REQ NO Normal [facility] Comment on above: Performed By: #### 4LC #### [facility] [address] [place] [address] Dr. Jeffrey Thomas MCH (RBC) [Entitic mass] 30.3 pg Normal 26.7-34.[address] [facility] Comment on above: Performed By: #### 4LC #### [facility] [address] [place] [address] Dr. Jeffrey Thomas MCHC (RBC) [Mass/Vol] 30.8 g/dL Normal 29.9-35.[address] [facility] Comment on above: Performed By: #### T 4LC #### [facility] [address] [place] [address] Dr. Jeffrey Thomas MCV (RBC) [Entitic vol] 98.6 fL Normal 81.0-99.0 [facility] Comment on above: Performed By: #### 4LC #### [facility] [address] [place] [address] Dr. Jeffrey Thomas MONO # 0.5 103/ul Normal 0.3-0.8 [facility] Comment on above: Performed By: #### 4LC #### [facility] [address] [place] [address] Dr. Jeffrey Thomas Monocytes/100 WBC (Bld) 7.5 % Normal 1.7-12.0 [facility] Comment on above: Performed By: #### 4LC #### [facility] [address] [place] [address] Dr. Jeffrey Thomas NEUT # 3.9 103/ul Normal 1.4-6.5 [facility] Comment on above: Performed By: #### 4LC #### [facility] [address] [place] [address] Dr. Jeffrey Thomas Neutrophils/100 WBC (Bld) 56.9 % Normal 43.0-75.0 [facility] Comment on above: Performed By: #### 4LC #### [facility] [address] [place] [address] Dr. Jeffrey Thomas Platelet mean volume (Bld) [Entitic vol] 12.0 fL Normal 9.5-13.[address] [facility] Comment on above: Performed By: #### 4LC #### [facility] [address] [place] [address] Dr. Jeffrey Thomas PLT 209 103/ul Normal 150-[address] [facility] Comment on above: Performed By: #### 4LC #### [facility] [address] [place] [address] Dr. Jeffrey Thomas RBC 3.56 106/ul Critically low 4.20-5.40 [facility] Comment on above: Performed By: #### 4LC #### [facility] [address] [address] [address] Jeffrey Thomas WBC 6.8 103/ul Normal 4.0-11.0 [facility] Comment on above: Performed By: #### T 4LC #### [facility] [address] [address] [address] Jeffrey Thomas PROF 14(COMP METB)on 022 Albumin [Mass/Vol] 2.5 g/dL Critically low 3.4-5.0 [facility] Comment on above: Performed By: #### L ACT #### [facility] [address] [place] [address] Dr. Jeffrey Thomas Albumin/Globulin [Mass ratio] 1.0 {ratio} Normal [facility] Comment on above: Performed By: #### L ACT #### [facility] [address] [place] [address] Dr. Jeffrey Thomas ALP [Catalytic activity/Vol] 94 U/L Normal 46-116 [facility] Comment on above: Performed By: #### L ACT #### [facility] [address] [place] [address] Dr. Jeffrey Thomas ALT [Catalytic activity/Vol] 9 U/L Critically low 14-59 [facility] Comment on above: Performed By: #### L ACT #### [facility] [address] [place] [address] Dr. Jeffrey Thomas Anion gap [Moles/Vol] 11.7 mmol/L Normal [facility] Comment on above: Performed By: #### L ACT #### [facility] [address] [place] [address] Dr. Jeffrey Thomas AST [Catalytic activity/Vol] 6 U/L Critically low 15-37 [facility] Comment on above: Performed By: #### L ACT #### [facility] [address] [place] [address] Dr. Jeffrey Thomas Bilirubin [Mass/Vol] 0.1 mg/dL Critically low 0.2-1.0 [facility] Comment on above: Performed By: #### L ACT #### [facility] [address] [address] [address] Jeffrey Thomas Calcium [Mass/Vol] 8.2 mg/dL Critically low 8.5-10.1 Th [facility] Comment on above: Performed By: #### L ACT #### [facility] [address] [address] [address] Jeffrey Thomas Chloride [Moles/Vol] 111 mmol/L Critically high 98-107 [facility] Comment on above: Performed By: #### L ACT #### [facility] [address] [address] [address] Jeffrey Thomas CO2 [Moles/Vol] 22.5 mmol/L Normal 21.0-32.0 [facility] Comment on above: Performed By: #### L ACT #### [facility] [address] [place] [address] Dr. Jeffrey Thomas Creatinine [Mass/Vol] 0.87 mg/dL Normal 0.55-1.02 [facility] Comment on above: Performed By: #### L ACT #### [facility] [address] [address] [address] Jeffrey Thomas EGFR-AF CZECH >60 Normal >=60 [facility] Comment on above: Performed By: #### L ACT #### [facility] [address] [place] [address] Dr. Jeffrey Thomas EGFR-NON AF CZECH >60 Normal >=60 [facility] Comment on above: Performed By: #### L ACT #### [facility] [address] [address] [address] Jeffrey Thomas Globulin (S) [Mass/Vol] 2.6 g/dL Normal [facility] Comment on above: Performed By: #### L ACT #### [facility] [address] [address] [address] Jeffrey Thomas Glucose [Mass/Vol] 111 mg/dL Critically high 74-106 T [facility] Comment on above: Performed By: #### L ACT #### [facility] [address] [address] [address] Jeffrey Thomas Potassium [Moles/Vol] 4.2 mmol/L Normal 3.5-5.1 [facility] Comment on above: Performed By: #### L ACT #### [facility] [address] [place] [address] Dr. Jeffrey Thomas Protein [Mass/Vol] 5.1 g/dL Critically low 6.4-8.2 Th [facility] Comment on above: Performed By: #### L ACT #### [facility] [address] [place] [address] Dr. Jeffrey Thomas Sodium [Moles/Vol] 141 mmol/L Normal 136-145 [facility] Comment on above: Performed By: #### L ACT #### [facility] [address] [place] [address] Dr. Jeffrey Thomas Urea nitrogen [Mass/Vol] 31.0 mg/dL Critically high 7.0-18.0 [facility] Comment on above: Performed By: #### L ACT #### [facility] [address] [place] [address] Dr. Jeffrey Thomas Urea nitrogen/Creatinine [Mass ratio] 35.6 mg/mg Normal [facility] Comment on above: Performed By: #### L ACT #### [facility] [address] [place] [address] Dr. Jeffrey Thomas CBC AUTO DIFFon 12-13-2021 BASO # 0.1 103/ul Normal 0.0-0.1 [facility] Comment on above: Performed By: #### L ACT #### [facility] [address] [place] [address] Dr. Jeffrey Thomas Basophils/100 WBC (Bld) 1.3 % Normal 0.2-2.0 [facility] Comment on above: Performed By: #### L ACT #### [facility] [address] [place] [address] Dr. Jeffrey Thomas EO # 0.3 103/ul Normal 0.0-0.7 [facility] Comment on above: Performed By: #### L ACT #### [facility] [address] [place] [address] Dr. Jeffrey Thomas Eosinophils/100 WBC (Bld) 3.8 % Normal 0.9-7.0 [facility] Comment on above: Performed By: #### L ACT #### [facility] [address] [place] [address] Dr. Jeffrey Thomas Erythrocyte distribution width (RBC) [Ratio] 15.7 % Critically high 11.0-15.0 [facility] Comment on above: Performed By: #### L ACT #### [facility] [address] [place] [address] Dr. Jeffrey Thomas Hematocrit (Bld) [Volume fraction] 35.7 % Critically low 36.0-48.0 [facility] Comment on above: Performed By: #### L ACT #### [facility] [address] [place] [address] Dr. Jeffrey Thomas Hemoglobin (Bld) [Mass/Vol] 11.5 g/dL Critically low 12.0-16.0 [facility] Comment on above: Performed By: #### L ACT #### [facility] [address] [place] [address] Dr. Jeffrey Thomas IG # 0.04 10e3/ul Critically high 0.00-0.03 [facility] Comment on above: Performed By: #### L ACT #### [facility] [address] [place] [address] Dr. Jeffrey Thomas IG % 0.6 % Critically high 0.0-0.5 [facility] Comment on above: Performed By: #### L ACT #### [facility] [address] [place] [address] Dr. Jeffrey Thomas LYMPH # 2.0 103/ul Normal 1.2-3.[address] [facility] Comment on above: Performed By: #### L ACT #### [facility] [address] [place] [address] Dr. Jeffrey Thomas Lymphocytes/100 WBC (Bld) 28.8 % Normal 20.5-60.0 [facility] Comment on above: Performed By: #### L ACT #### [facility] [address] [place] [address] Dr. Jeffrey Thomas MANUAL DIFF REQ NO Normal [facility] Comment on above: Performed By: #### L ACT #### [facility] [address] [place] [address] Dr. Jeffrey Thomas MCH (RBC) [Entitic mass] 31.6 pg Normal 26.7-34.0 [facility] Comment on above: Performed By: #### L ACT #### [facility] [address] [place] [address] Dr. Jeffrey Thomas MCHC (RBC) [Mass/Vol] 32.2 g/dL Normal 29.9-35.2 [facility] Comment on above: Performed By: #### L ACT #### [facility] [address] [place] [address] Dr. Jeffrey Thomas MCV (RBC) [Entitic vol] 98.1 fL Normal 81.0-99.0 [facility] Comment on above: Performed By: #### L ACT #### [facility] [address] [place] [address] Dr. Jeffrey Thomas MONO # 0.6 103/ul Normal 0.3-0.8 [facility] Comment on above: Performed By: #### L ACT #### [facility] [address] [place] [address] Dr. Jeffrey Thomas Monocytes/100 WBC (Bld) 8.5 % Normal 1.7-12.0 [facility] Comment on above: Performed By: #### L ACT #### [facility] [address] [place] [address] Dr. Jeffrey Thomas NEUT # 3.9 103/ul Normal 1.4-6.[address] [facility] Comment on above: Performed By: #### L ACT #### [facility] [address] [place] [address] Dr. Jeffrey Thomas Neutrophils/100 WBC (Bld) 57.0 % Normal 43.0-75.0 [facility] Comment on above: Performed By: #### L ACT #### [facility] [address] [place] [address] Dr. Jeffrey Thomas Platelet mean volume (Bld) [Entitic vol] 11.5 fL Normal 9.5-13.5 [facility] Comment on above: Performed By: #### L ACT #### [facility] [address] [place] [address] Dr. Jeffrey Thomas PLT 199 103/ul Normal 150-450 [facility] Comment on above: Performed By: #### L ACT #### [facility] [address] [address] [address] Jeffrey Thomas RBC 3.64 106/ul Critically low 4.20-5.40 [facility] Comment on above: Performed By: #### L ACT #### [facility] [address] [address] [address] Jeffrey Thomas WBC 6.9 103/ul Normal 4.0-11.0 [facility] Comment on above: Performed By: #### L ACT #### [facility] [address] [place] [address] Dr. Jeffrey Thomas POINT OF CARE GLUCOSEon 12-01 Glucose [Mass/Vol] 85 mg/dL Normal 74-106 [facility] Comment on above: Performed By: #### C MP #### [facility] [address] [place] [address] Dr. Jeffrey Thomas PROF 14(COMP METB)on 022 Albumin [Mass/Vol] 2.7 g/dL Critically low 3.4-5.0 [facility] Comment on above: Performed By: #### A MM #### [facility] [address] [place] [address] Dr. Jeffrey Thomas Albumin/Globulin [Mass ratio] 1.0 {ratio} Normal [facility] Comment on above: Performed By: #### A MM #### [facility] [address] [place] [address] Dr. Jeffrey Thomas ALP [Catalytic activity/Vol] 95 U/L Normal 46-116 [facility] Comment on above: Performed By: #### A MM #### [facility] [address] [place] [address] Dr. Jeffrey Thomas ALT [Catalytic activity/Vol] 11 U/L Critically low 14-59 [facility] Comment on above: Performed By: #### A MM #### [facility] [address] [address] [address] Jeffrey Thomas Anion gap [Moles/Vol] 10.8 mmol/L Normal [facility] Comment on above: Performed By: #### A MM #### [facility] [address] [address] [address] Jeffrey Thomas AST [Catalytic activity/Vol] 14 U/L Critically low 15-37 [facility] Comment on above: Performed By: #### A MM #### [facility] [address] [address] [address] Jeffrey Thomas Bilirubin [Mass/Vol] 0.2 mg/dL Normal 0.2-1.0 [facility] Comment on above: Performed By: #### A MM #### [facility] [address] [address] [address] Jeffrey Thomas Calcium [Mass/Vol] 8.3 mg/dL Critically low 8.5-10.1 [facility] Comment on above: Performed By: #### A MM #### [facility] [address] [address] [address] Jeffrey Thomas Chloride [Moles/Vol] 113 mmol/L Critically high 98-107 [facility] Comment on above: Performed By: #### A MM #### [facility] [address] [address] [address] Jeffrey Thomas CO2 [Moles/Vol] 22.1 mmol/L Normal 21.0-32.0 [facility] Comment on above: Performed By: #### A MM #### [facility] [address] [address] [address] Jeffrey Thomas Creatinine [Mass/Vol] 0.98 mg/dL Normal 0.55-1.02 [facility] Comment on above: Performed By: #### A MM #### [facility] [address] [address] [address] Jeffrey Thomas EGFR-AF CZECH >60 Normal >=60 [facility] Comment on above: Performed By: #### A MM #### [facility] [address] [address] [address] Jeffrey Thomas EGFR-NON AF CZECH 57 mL/min/1.73m2 Critically low >=60 [facility] Comment on above: Performed By: #### A MM #### [facility] [address] [address] [address] Jeffrey Thomas Globulin (S) [Mass/Vol] 2.6 g/dL Normal [facility] Comment on above: Performed By: #### A MM #### [facility] [address] [address] [address] Jeffrey Thomas Glucose [Mass/Vol] 102 mg/dL Normal 74-106 [facility] Comment on above: Performed By: #### A MM #### [facility] [address] [address] [address] Jeffrey Thomas Potassium [Moles/Vol] 3.9 mmol/L Normal 3.5-5.1 [facility] Comment on above: Performed By: #### A MM #### [facility] [address] [address] [address] Jeffrey Thomas Protein [Mass/Vol] 5.3 g/dL Critically low 6.4-8.[address] [facility] Comment on above: Performed By: #### A MM #### [facility] [address] [address] [address] Jeffrey Thomas Sodium [Moles/Vol] 142 mmol/L Normal 136-145 [facility] Comment on above: Performed By: #### A MM #### [facility] [address] [address] [address] Jeffrey Thomas Urea nitrogen [Mass/Vol] 26.0 mg/dL Critically high 7.0-18.0 [facility] Comment on above: Performed By: #### A MM #### [facility] [address] [address] [address] Jeffrey Thomas Urea nitrogen/Creatinine [Mass ratio] 26.5 mg/mg Normal [facility] Comment on above: Performed By: #### A MM #### [facility] [address] [place] [address] Dr. Jeffrey Thomas T3, TOTAL (TRIIODOTHYRONINE) on 12-13-2021 T3, TOTAL 72 ng/dL Normal 71-180 [facility] Comment on above: Performed By: #### C MP #### [facility] [address] [place] [address] Dr. Jeffrey Thomas T4 LABCORPon 12-13-2021 T4 [Mass/Vol] 5.2 ug/dL Normal 4.5-12.0 [facility] Comment on above: Performed By: #### T 4LC #### [facility] [address] [place] [address] Dr. Jeffrey Thomas AMMONIAon 12-12-2021 Ammonia (P) [Moles/Vol] 10 umol/L Critically low 11-32 [facility] Comment on above: Performed By: #### A MM #### [facility] [address] [place] [address] Dr. Jeffrey Thomas CBC AUTO DIFFon 12-12-2021 BASO # 0.1 103/ul Normal 0.0-0.1 [facility] Comment on above: Performed By: #### T 4LC #### [facility] [address] [place] [address] Dr. Jeffrey Thomas Basophils/100 WBC (Bld) 1.4 % Normal 0.2-2.0 [facility] Comment on above: Performed By: #### T 4LC #### [facility] [address] [place] [address] Dr. Jeffrey Thomas EO # 0.2 103/ul Normal 0.0-0.7 [facility] Comment on above: Performed By: #### T 4LC #### [facility] [address] [place] [address] Dr. Jeffrey Thomas Eosinophils/100 WBC (Bld) 2.6 % Normal 0.9-7.0 [facility] Comment on above: Performed By: #### T 4LC #### [facility] [address] [place] [address] Dr. Jeffrey Thomas Erythrocyte distribution width (RBC) [Ratio] 15.7 % Critically high 11.0-15.0 [facility] Comment on above: Performed By: #### T 4LC #### [facility] [address] [place] [address] Dr. Jeffrey Thomas Hematocrit (Bld) [Volume fraction] 38.4 % Normal 36.0-48.0 [facility] Comment on above: Performed By: #### T 4LC #### [facility] [address] [place] [address] Dr. Jeffrey Thomas Hemoglobin (Bld) [Mass/Vol] 12.2 g/dL Normal 12.0-16.0 [facility] Comment on above: Performed By: #### T 4LC #### [facility] [address] [place] [address] Dr. Jeffrey Thomas IG # 0.04 10e3/ul Critically high 0.00-0.03 [facility] Comment on above: Performed By: #### T 4LC #### [facility] [address] [place] [address] Dr. Jeffrey Thomas IG % 0.5 % Normal 0.0-0.5 [facility] Comment on above: Performed By: #### T 4LC #### [facility] [address] [place] [address] Dr. Jeffrey Thomas LYMPH # 2.2 103/ul Normal 1.2-3.8 [facility] Comment on above: Performed By: #### T 4LC #### [facility] [address] [place] [address] Dr. Jeffrey Thomas Lymphocytes/100 WBC (Bld) 28.0 % Normal 20.5-60.0 [facility] Comment on above: Performed By: #### T 4LC #### [facility] [address] [place] [address] Dr. Jeffrey Thomas MANUAL DIFF REQ NO Normal [facility] Comment on above: Performed By: #### T 4LC #### [facility] [address] [place] [address] Dr. Jeffrey Thomas MCH (RBC) [Entitic mass] 30.9 pg Normal 26.7-34.0 [facility] Comment on above: Performed By: #### T 4LC #### [facility] [address] [place] [address] Dr. Jeffrey Thomas MCHC (RBC) [Mass/Vol] 31.8 g/dL Normal 29.9-35.2 [facility] Comment on above: Performed By: #### T 4LC #### [facility] [address] [place] [address] Dr. Jeffrey Thomas MCV (RBC) [Entitic vol] 97.2 fL Normal 81.0-99.0 [facility] Comment on above: Performed By: #### T 4LC #### [facility] [address] [place] [address] Dr. Jeffrey Thomas MONO # 0.6 103/ul Normal 0.3-0.8 [facility] Comment on above: Performed By: #### T 4LC #### [facility] [address] [place] [address] Dr. Jeffrey Thomas Monocytes/100 WBC (Bld) 7.9 % Normal 1.7-12.0 [facility] Comment on above: Performed By: #### T 4LC #### [facility] [address] [place] [address] Dr. Jeffrey Thomas NEUT # 4.7 103/ul Normal 1.4-6.[address] [facility] Comment on above: Performed By: #### T 4LC #### [facility] [address] [place] [address] Dr. Jeffrey Thomas Neutrophils/100 WBC (Bld) 59.6 % Normal 43.0-75.[address] [facility] Comment on above: Performed By: #### T 4LC #### [facility] [address] [place] [address] Dr. Jeffrey Thomas Platelet mean volume (Bld) [Entitic vol] 11.7 fL Normal 9.5-13.5 [facility] Comment on above: Performed By: #### T 4LC #### [facility] [address] [place] [address] Dr. Jeffrey Thomas PLT 256 103/ul Normal 150-[address] [facility] Comment on above: Performed By: #### T 4LC #### [facility] [address] [place] [address] Dr. Jeffrey Thomas RBC 3.95 106/ul Critically low 4.20-5.40 [facility] Comment on above: Performed By: #### T 4LC #### [facility] [address] [place] [address] Dr. Jeffrey Thomas WBC 7.9 103/ul Normal 4.0-11.0 [facility] Comment on above: Performed By: #### T 4LC #### [facility] [address] [place] [address] Dr. Jeffrey Thomas BASO # 0.1 103/ul Normal 0.0-0.1 [facility] Comment on above: Performed By: #### C MP #### [facility] [address] [place] [address] Dr. Jeffrey Thomas Basophils/100 WBC (Bld) 1.4 % Normal 0.2-2.0 [facility] Comment on above: Performed By: #### C MP #### [facility] [address] [place] [address] Dr. Jeffrey Thomas EO # 0.2 103/ul Normal 0.0-0.7 [facility] Comment on above: Performed By: #### C MP #### [facility] [address] [place] [address] Dr. Jeffrey Thomas Eosinophils/100 WBC (Bld) 2.9 % Normal 0.9-7.0 [facility] Comment on above: Performed By: #### C MP #### [facility] [address] [place] [address] Dr. Jeffrey Thomas Erythrocyte distribution width (RBC) [Ratio] 15.7 % Critically high 11.0-15.0 [facility] Comment on above: Performed By: #### C MP #### [facility] [address] [place] [address] Dr. Jeffrey Thomas Hematocrit (Bld) [Volume fraction] 40.7 % Normal 36.0-48.0 [facility] Comment on above: Performed By: #### C MP #### [facility] [address] [place] [address] Dr. Jeffrey Thomas Hemoglobin (Bld) [Mass/Vol] 12.9 g/dL Normal 12.0-16.0 [facility] Comment on above: Performed By: #### C MP #### [facility] [address] [place] [address] Dr. Jeffrey Thomas IG # 0.02 10e3/ul Normal 0.00-0.03 [facility] Comment on above: Performed By: #### C MP #### [facility] [address] [place] [address] Dr. Jeffrey Thomas IG % 0.3 % Normal 0.0-0.5 [facility] Comment on above: Performed By: #### C MP #### [facility] [address] [place] [address] Dr. Jeffrey Thomas LYMPH # 1.7 103/ul Normal 1.2-3.8 [facility] Comment on above: Performed By: #### C MP #### [facility] [address] [place] [address] Dr. Jeffrey Thomas Lymphocytes/100 WBC (Bld) 28.4 % Normal 20.5-60.0 [facility] Comment on above: Performed By: #### C MP #### [facility] [address] [place] [address] Dr. Jeffrey Thomas MANUAL DIFF REQ NO Normal [facility] Comment on above: Performed By: #### C MP #### [facility] [address] [place] [address] Dr. Jeffrey Thomas MCH (RBC) [Entitic mass] 30.7 pg Normal 26.7-34.0 [facility] Comment on above: Performed By: #### C MP #### [facility] [address] [place] [address] Dr. Jeffrey Thomas MCHC (RBC) [Mass/Vol] 31.7 g/dL Normal 29.9-35.[address] [facility] Comment on above: Performed By: #### C MP #### [facility] [address] [address] [address] Jeffrey Thomas MCV (RBC) [Entitic vol] 96.9 fL Normal 81.0-99.0 [facility] Comment on above: Performed By: #### C MP #### [facility] [address] [address] [address] Jeffrey Thomas MONO # 0.5 103/ul Normal 0.3-0.8 [facility] Comment on above: Performed By: #### C MP #### [facility] [address] [address] [address] Jeffrey Thomas Monocytes/100 WBC (Bld) 8.3 % Normal 1.7-12.0 [facility] Comment on above: Performed By: #### C MP #### [facility] [address] [address] [address] Jeffrey Thomas NEUT # 3.5 103/ul Normal 1.4-6.5 [facility] Comment on above: Performed By: #### C MP #### [facility] [address] [address] [address] Jeffrey Thomas Neutrophils/100 WBC (Bld) 58.7 % Normal 43.0-75.0 [facility] Comment on above: Performed By: #### C MP #### [facility] [address] [address] [address] Jeffrey Thomas Platelet mean volume (Bld) [Entitic vol] 11.5 fL Normal 9.5-13.5 [facility] Comment on above: Performed By: #### C MP #### [facility] [address] [address] [address] Jeffrey Thomas PLT 241 103/ul Normal 150-[address] [facility] Comment on above: Performed By: #### C MP #### [facility] [address] [address] [address] Jeffrey Thomas RBC 4.20 106/ul Normal 4.20-5.[address] [facility] Comment on above: Performed By: #### C MP #### [facility] [address] [address] [address] Jeffrey Thomas WBC 5.9 103/ul Normal 4.0-11.[address] [facility] Comment on above: Performed By: #### C MP #### [facility] [address] [address] [address] Jeffrey Thomas BASO # 0.1 103/ul Normal 0.0-0.[address] [facility] Comment on above: Performed By: #### A MM #### [facility] [address] [address] [address] Jeffrey Thomas Basophils/100 WBC (Bld) 1.7 % Normal 0.2-2.[address] [facility] Comment on above: Performed By: #### A MM #### [facility] [address] [place] [address] Dr. Jeffrey Thomas EO # 0.1 103/ul Normal 0.0-0.[address] [facility] Comment on above: Performed By: #### A MM #### [facility] [address] [place] [address] Dr. Jeffrey Thomas Eosinophils/100 WBC (Bld) 1.7 % Normal 0.9-7.[address] [facility] Comment on above: Performed By: #### A MM #### [facility] [address] [place] [address] Dr. Jeffrey Thomas Erythrocyte distribution width (RBC) [Ratio] 15.6 % Critically high 11.0-15.[address] [facility] Comment on above: Performed By: #### A MM #### [facility] [address] [place] [address] Dr. Jeffrey Thomas Hematocrit (Bld) [Volume fraction] 43.4 % Normal 36.0-48.[address] [facility] Comment on above: Performed By: #### A MM #### [facility] [address] [place] [address] Dr. Jeffrey Thomas Hemoglobin (Bld) [Mass/Vol] 14.2 g/dL Normal 12.0-16.[address] [facility] Comment on above: Performed By: #### A MM #### [facility] [address] [address] [address] Jeffrye Thomas IG # 0.04 10e3/ul Critically high 0.00-0.03 [facility] Comment on above: Performed By: #### A MM #### [facility] [address] [address] [address] Jeffrey Thomas IG % 0.6 % Critically high 0.0-0.5 [facility] Comment on above: Performed By: #### A MM #### [facility] [address] [place] [address] Dr. Jeffrey Thomas LYMPH # 2.2 103/ul Normal 1.2-3.8 [facility] Comment on above: Performed By: #### A MM #### [facility] [address] [place] [address] Dr. Jeffrey Thomas Lymphocytes/100 WBC (Bld) 32.7 % Normal 20.5-60.0 [facility] Comment on above: Performed By: #### A MM #### [facility] [address] [place] [address] Dr. Jeffrey Thomas MANUAL DIFF REQ NO Normal [facility] Comment on above: Performed By: #### A MM #### [facility] [address] [place] [address] Dr. Jeffrey Thomas MCH (RBC) [Entitic mass] 31.3 pg Normal 26.7-34.0 [facility] Comment on above: Performed By: #### A MM #### [facility] [address] [place] [address] Dr. Jeffrey Thomas MCHC (RBC) [Mass/Vol] 32.7 g/dL Normal 29.9-35.[address] [facility] Comment on above: Performed By: #### A MM #### [facility] [address] [place] [address] Dr. Jeffrey Thomas MCV (RBC) [Entitic vol] 95.8 fL Normal 81.0-99.0 [facility] Comment on above: Performed By: #### A MM #### [facility] [address] [place] [address] Dr. Jeffrey Thomas MONO # 0.7 103/ul Normal 0.3-0.8 [facility] Comment on above: Performed By: #### A MM #### [facility] [address] [place] [address] Dr. Jeffrey Thomas Monocytes/100 WBC (Bld) 9.9 % Normal 1.7-12.0 [facility] Comment on above: Performed By: #### A MM #### [facility] [address] [place] [address] Dr. Jeffrey Thomas NEUT # 3.5 103/ul Normal 1.4-6.5 [facility] Comment on above: Performed By: #### A MM #### [facility] [address] [place] [address] Dr. Jeffrey Thomas Neutrophils/100 WBC (Bld) 53.4 % Normal 43.0-75.0 [facility] Comment on above: Performed By: #### A MM #### [facility] [address] [place] [address] Dr. Jeffrey Thomas Platelet mean volume (Bld) [Entitic vol] 12.1 fL Normal 9.5-13.[address] [facility] Comment on above: Performed By: #### A MM #### [facility] [address] [place] [address] Dr. Jeffrey Thomas PLT 307 103/ul Normal 150-[address] [facility] Comment on above: Performed By: #### A MM #### [facility] [address] [place] [address] Dr. Jeffrey Thomas RBC 4.53 106/ul Normal 4.20-5.[address] [facility] Comment on above: Performed By: #### A MM #### [facility] [address] [place] [address] Dr. Jeffrey Thomas WBC 6.6 103/ul Normal 4.0-11.[address] [facility] Comment on above: Performed By: #### A MM #### [facility] [address] [place] [address] Dr. Jeffrey Thomas Covid-19 PCR (CVDTBH)on 12-01 SARS-CoV-2 (COVID-19) RNA REBECCA+probe Ql (Unsp spec) Not detected Normal NOT DETECTED [facility] Comment on above: Result Comment: When diagnostic testing is negative, the possibility of a false negative should be considered in the context of a patient's recent exposures and the presence of clinical signs and symptoms consistent with SARS-CoV-2. This test is not yet approved or cleared by the [place] FDA. When there are no FDA-approved or cleared tests available, and other criteria are met, FDA can make tests available under an emergency access mechanism called an Emergency Use Authorization (EUA). The EUA for this test is supported by the [employer] of Health and Human Service's declaration that circumstances exist to justify the emergency use of in vitro diagnostics for the detection and/or diagnosis of the virus that causes COVID-19. This EUA will remain in effect for the duration of the COVID-19 declaration justifying emergency of IVDs, unless it is terminated or revoked by the FDA (after which the test may no longer be used). Performed By: #### C VDTB #### [facility] [address] [place] [address] Dr. Jeffrey Thomas DRUG SCREEN RAPID (URINE)on 12-12-2021 AMP Negative Normal NEGATIVE [facility] Comment on above: Performed By: #### T 4LC #### [facility] [address] [place] [address] Dr. Jeffrey Thomas BAR Negative Normal NEGATIVE [facility] Comment on above: Performed By: #### T 4LC #### [facility] [address] [place] [address] Dr. Jeffrey Thomas BUP Negative Normal NEGATIVE [facility] Comment on above: Performed By: #### T 4LC #### [facility] [address] [place] [address] Dr. Jeffrey Thomas BZO Positive Abnormal NEGATIVE [facility] Comment on above: Performed By: #### T 4LC #### [facility] [address] [place] [address] Dr. Jeffrey Thomas VIKASH Negative Normal NEGATIVE [facility] Comment on above: Performed By: #### T 4LC #### [facility] [address] [place] [address] Dr. Jeffrey Thomas CUT-OFFS SEE BELOW Normal [facility] Comment on above: Result Comment: AMP (Amphetamine): 500ng/mL, BAR (Barbituates): 200 ng/mL, BZO (Benzodiazepines): 150 ng/mL, BUP (Buprenorphine): 10 ng/mL, VIKASH (Cocaine): 150 ng/mL, mAMP (Methamphetamine): 500 ng/mL, MTD (Methadone): 200 ng/mL, OPI (Opiates): 100 ng/mL, OXY (Oxycodone): 100 ng/mL, PCP (Phencyclidine): 25 ng/mL, PPX (Propoxyphene): 300 ng/mL, THC (Cannabinoids): 50 ng/mL, TCA (Trycyclic Antidepressants): 300 ng/mL Performed By: #### T 4LC #### [facility] [address] [place] [address] Dr. Jeffrey Thomas DRUG CUT HEADER DRUG CLASS TEST SYSTEM CUT-OFF CONCENTRATIONS ARE FOLLOWS: Normal [facility] Comment on above: Performed By: #### T 4LC #### [facility] [address] [place] [address] Dr. Jeffrey Thomas mAMP Negative Normal NEGATIVE [facility] Comment on above: Performed By: #### T 4LC #### [facility] [address] [place] [address] Dr. Jeffrey Thomas MTD Negative Normal NEGATIVE [facility] Comment on above: Performed By: #### T 4LC #### [facility] [address] [place] [address] Dr. Jeffrey Thomas OPI Negative Normal NEGATIVE [facility] Comment on above: Performed By: #### T 4LC #### [facility] [address] [place] [address] Dr. Jeffrey Thomas OXY Negative Normal NEGATIVE [facility] Comment on above: Performed By: #### T 4LC #### [facility] [address] [place] [address] Dr. Jeffrey Thomas PCP Negative Normal NEGATIVE [facility] Comment on above: Performed By: #### T 4LC #### [facility] [address] [place] [address] Dr. Jeffrey Thomas PPX Negative Normal NEGATIVE [facility] Comment on above: Performed By: #### T 4LC #### [facility] [address] [place] [address] Dr. Jeffrey Thomas TCA Positive Abnormal NEGATIVE [facility] Comment on above: Performed By: #### T 4LC #### [facility] [address] [place] [address] Dr. Jeffrey Thomas THC Negative Normal NEGATIVE [facility] Comment on above: Performed By: #### T 4LC #### [facility] [address] [place] [address] Dr. Jeffrey Thomas AMP Negative Normal NEGATIVE [facility] Comment on above: Performed By: #### C MP #### [facility] [address] [place] [address] Dr. Jeffrey Thomas BAR Negative Normal NEGATIVE [facility] Comment on above: Performed By: #### C MP #### [facility] [address] [place] [address] Dr. Jeffrey Thomas BUP Negative Normal NEGATIVE [facility] Comment on above: Performed By: #### C MP #### [facility] [address] [place] [address] Dr. Jeffrey Thomas BZO Positive Abnormal NEGATIVE [facility] Comment on above: Performed By: #### C MP #### [facility] [address] [place] [address] Dr. Jeffrey Thomas VIKASH Negative Normal NEGATIVE [facility] Comment on above: Performed By: #### C MP #### [facility] [address] [place] [address] Dr. Jeffrey Thomas CUT-OFFS SEE BELOW Normal [facility] Comment on above: Result Comment: AMP (Amphetamine): 500ng/mL, BAR (Barbituates): 200 ng/mL, BZO (Benzodiazepines): 150 ng/mL, BUP (Buprenorphine): 10 ng/mL, VIKASH (Cocaine): 150 ng/mL, mAMP (Methamphetamine): 500 ng/mL, MTD (Methadone): 200 ng/mL, OPI (Opiates): 100 ng/mL, OXY (Oxycodone): 100 ng/mL, PCP (Phencyclidine): 25 ng/mL, PPX (Propoxyphene): 300 ng/mL, THC (Cannabinoids): 50 ng/mL, TCA (Trycyclic Antidepressants): 300 ng/mL Performed By: #### C MP #### [facility] [address] [place] [address] Dr. Jeffrey Thomas DRUG CUT HEADER DRUG CLASS TEST SYSTEM CUT-OFF CONCENTRATIONS ARE FOLLOWS: Normal [facility] Comment on above: Performed By: #### C MP #### [facility] [address] [place] [address] Dr. Jeffrey Thomas mAMP Negative Normal NEGATIVE [facility] Comment on above: Performed By: #### C MP #### [facility] [address] [place] [address] Dr. Jeffrey Thomas MTD Negative Normal NEGATIVE [facility] Comment on above: Performed By: #### C MP #### [facility] [address] [place] [address] Dr. Jeffrey Thomas OPI Negative Normal NEGATIVE [facility] Comment on above: Performed By: #### C MP #### [facility] [address] [place] [address] Dr. Jeffrey Thomas OXY Negative Normal NEGATIVE [facility] Comment on above: Performed By: #### C MP #### [facility] [address] [place] [address] Dr. Jeffrey Thomas PCP Negative Normal NEGATIVE [facility] Comment on above: Performed By: #### C MP #### [facility] [address] [place] [address] Dr. Jeffrey Thomas PPX Negative Normal NEGATIVE [facility] Comment on above: Performed By: #### C MP #### [facility] [address] [place] [address] Dr. Jeffrey Thomas TCA Positive Abnormal NEGATIVE [facility] Comment on above: Performed By: #### C MP #### [facility] [address] [place] [address] Dr. Jeffrey Thomas THC Negative Normal NEGATIVE [facility] Comment on above: Performed By: #### C MP #### [facility] [address] [address] [address] Jeffrey Thomas ER URINE PROFILEon 2 Bilirubin Ql (U) SMALL Abnormal NEGATIVE [facility] Comment on above: Performed By: #### C MP #### [facility] [address] [address] [address] Jeffrey Thomas Clarity (U) CLEAR Normal CLEAR [facility] Comment on above: Performed By: #### C MP #### [facility] [address] [place] [address] Dr. Jeffrey Thomas Color (U) YELLOW Normal YELLOW [facility] Comment on above: Performed By: #### C MP #### [facility] [address] [place] [address] Dr. Jeffrey HOFFMAN A micrscopic examination will be performed if indicated. Normal [facility] Comment on above: Performed By: #### C MP #### [facility] [address] [place] [address] Dr. Jeffrye Thomas Glucose Ql (U) Negative Normal NEGATIVE [facility] Comment on above: Performed By: #### C MP #### [facility] [address] [place] [address] Dr. Jeffrey Thomas Hemoglobin Ql (U) Negative Normal NEGATIVE [facility] Comment on above: Performed By: #### C MP #### [facility] [address] [address] [address] Jeffrey Thomas Ketones Ql (U) Negative Normal NEGATIVE [facility] Comment on above: Performed By: #### C MP #### [facility] [address] [address] [address] Jeffrey Thomas LEUKOCYTES Negative Normal NEGATIVE [facility] Comment on above: Performed By: #### C MP #### [facility] [address] [place] [address] Dr. Jeffrey Thomas Nitrite Ql (U) Negative Normal NEGATIVE [facility] Comment on above: Performed By: #### C MP #### [facility] [address] [place] [address] Dr. Jeffrey Thomas pH (U) 5.0 [pH] Normal 5-9 [facility] Comment on above: Performed By: #### C MP #### [facility] [address] [place] [address] Dr. Jeffrey Thomas SPEC GRAVITY 1.025 Normal 1.005-<=1.02 5 [facility] Comment on above: Performed By: #### C MP #### [facility] [address] [place] [address] Dr. Jeffrey Thomas UA PROTEIN Negative Normal NEGATIVE/ TRACE [facility] Comment on above: Performed By: #### C MP #### [facility] [address] [place] [address] Dr. Jeffrey Thomas UR MICRO IND NOT INDICATED Normal [facility] Comment on above: Performed By: #### C MP #### [facility] [address] [place] [address] Dr. Jeffrey Thomas Urobilinogen Qn (U) 0.2 {Bere'U}/dL Normal 0.2 - 1. 0 [facility] Comment on above: Performed By: #### C MP #### [facility] [address] [place] [address] Dr. Jeffrey Thomas PROF 14(COMP METB)on 022 Albumin [Mass/Vol] 2.9 g/dL Critically low 3.4-5.0 [facility] Comment on above: Performed By: #### C MP #### [facility] [address] [place] [address] Dr. Jeffrey Thomas Albumin/Globulin [Mass ratio] 1.0 {ratio} Normal [facility] Comment on above: Performed By: #### C MP #### [facility] [address] [place] [address] Dr. Jeffrey Thomas ALP [Catalytic activity/Vol] 116 U/L Normal 46-116 [facility] Comment on above: Performed By: #### C MP #### [facility] [address] [place] [address] Dr. Jeffrey Thomas ALT [Catalytic activity/Vol] 12 U/L Critically low 14-59 [facility] Comment on above: Performed By: #### C MP #### [facility] [address] [address] [address] Jeffrey Thomas Anion gap [Moles/Vol] 11.8 mmol/L Normal Th [facility] Comment on above: Performed By: #### C MP #### [facility] [address] [address] [address] Jeffrey Thomas AST [Catalytic activity/Vol] 12 U/L Critically low 15-37 [facility] Comment on above: Performed By: #### C MP #### [facility] [address] [place] [address] Dr. Jeffrey Thomas Bilirubin [Mass/Vol] 0.1 mg/dL Critically low 0.2-1.0 [facility] Comment on above: Performed By: #### C MP #### [facility] [address] [place] [address] Dr. Jeffrey Thomas Calcium [Mass/Vol] 8.2 mg/dL Critically low 8.5-10.1 [facility] Comment on above: Performed By: #### C MP #### [facility] [address] [place] [address] Dr. Jeffrey Thomas Chloride [Moles/Vol] 111 mmol/L Critically high 98-107 [facility] Comment on above: Performed By: #### C MP #### [facility] [address] [place] [address] Dr. Jeffrey Thomas CO2 [Moles/Vol] 20.2 mmol/L Critically low 21.0-32.0 [facility] Comment on above: Performed By: #### C MP #### [facility] [address] [place] [address] Dr. Jeffrey Thomas Creatinine [Mass/Vol] 1.26 mg/dL Critically high 0.55-1.02 [facility] Comment on above: Performed By: #### C MP #### [facility] [address] [place] [address] Dr. Jeffrey Thomas EGFR-AF CZECH 52 mL/min/1.73m2 Critically low >=60 [facility] Comment on above: Performed By: #### C MP #### [facility] [address] [address] [address] Jeffrey Thomas EGFR-NON AF CZECH 43 mL/min/1.73m2 Critically low >=60 [facility] Comment on above: Performed By: #### C MP #### [facility] [address] [address] [address] Jeffrey Thomas Globulin (S) [Mass/Vol] 3.0 g/dL Normal [facility] Comment on above: Performed By: #### C MP #### [facility] [address] [address] [address] Jeffrey Thomas Glucose [Mass/Vol] 131 mg/dL Critically high 74-106 T [facility] Comment on above: Performed By: #### C MP #### [facility] [address] [address] [address] Jeffrey Thomas Potassium [Moles/Vol] 4.0 mmol/L Normal 3.5-5.1 [facility] Comment on above: Performed By: #### C MP #### [facility] [address] [address] [address] Jeffrey Thomas Protein [Mass/Vol] 5.9 g/dL Critically low 6.4-8.2 Th [facility] Comment on above: Performed By: #### C MP #### [facility] [address] [address] [address] Jeffrey Thomas Sodium [Moles/Vol] 139 mmol/L Normal 136-145 [facility] Comment on above: Performed By: #### C MP #### [facility] [address] [address] [address] Jeffrey Thomas Urea nitrogen [Mass/Vol] 30.0 mg/dL Critically high 7.0-18.0 [facility] Comment on above: Performed By: #### C MP #### [facility] [address] [address] [address] Jeffrey Thomas Urea nitrogen/Creatinine [Mass ratio] 23.8 mg/mg Normal [facility] Comment on above: Performed By: #### C MP #### [facility] [address] [address] [address] Jeffrey Thomas Albumin [Mass/Vol] 3.1 g/dL Critically low 3.4-5.0 [facility] Comment on above: Performed By: #### C MP #### [facility] [address] [address] [address] Jeffrey Thomas Albumin/Globulin [Mass ratio] 1.0 {ratio} Normal [facility] Comment on above: Performed By: #### C MP #### [facility] [address] [address] [address] Jeffrey Thomas ALP [Catalytic activity/Vol] 119 U/L Critically high 46-116 [facility] Comment on above: Performed By: #### C MP #### [facility] [address] [place] [address] Dr. Jeffrey Thomas ALT [Catalytic activity/Vol] 13 U/L Critically low 14-59 [facility] Comment on above: Performed By: #### C MP #### [facility] [address] [address] [address] Jeffrey Thomas Anion gap [Moles/Vol] 11.9 mmol/L Normal [facility] Comment on above: Performed By: #### C MP #### [facility] [address] [address] [address] Jeffrey Thomas AST [Catalytic activity/Vol] 15 U/L Normal 15-37 [facility] Comment on above: Performed By: #### C MP #### [facility] [address] [address] [address] Jeffrey Thomas Bilirubin [Mass/Vol] 0.3 mg/dL Normal 0.2-1.0 [facility] Comment on above: Performed By: #### C MP #### [facility] [address] [address] [address] Jeffrey Thomas Calcium [Mass/Vol] 8.5 mg/dL Normal 8.5-10.1 [facility] Comment on above: Performed By: #### C MP #### [facility] [address] [address] [address] Jeffrey Thomas Chloride [Moles/Vol] 109 mmol/L Critically high 98-107 [facility] Comment on above: Performed By: #### C MP #### [facility] [address] [address] [address] Jeffrey Thomas CO2 [Moles/Vol] 21.9 mmol/L Normal 21.0-32.0 [facility] Comment on above: Performed By: #### C MP #### [facility] [address] [address] [address] Jeffrey Thomas Creatinine [Mass/Vol] 1.18 mg/dL Critically high 0.55-1.02 [facility] Comment on above: Performed By: #### C MP #### [facility] [address] [place] [address] Dr. Jeffrey Thomas EGFR-AF CZECH 56 mL/min/1.73m2 Critically low >=60 [facility] Comment on above: Performed By: #### C MP #### [facility] [address] [address] [address] Jeffrey Thomas EGFR-NON AF CZECH 46 mL/min/1.73m2 Critically low >=60 [facility] Comment on above: Performed By: #### C MP #### [facility] [address] [address] [address] Jeffrey Thomas Globulin (S) [Mass/Vol] 3.1 g/dL Normal [facility] Comment on above: Performed By: #### C MP #### [facility] [address] [address] [address] Jeffrey Thomas Glucose [Mass/Vol] 94 mg/dL Normal 74-106 [facility] Comment on above: Performed By: #### C MP #### [facility] [address] [address] [address] Jeffrey Thomas Potassium [Moles/Vol] 3.8 mmol/L Normal 3.5-5.1 [facility] Comment on above: Performed By: #### C MP #### [facility] [address] [address] [address] Jeffrey Thomas Protein [Mass/Vol] 6.2 g/dL Critically low 6.4-8.2 Th [facility] Comment on above: Performed By: #### C MP #### [facility] [address] [address] [address] Jeffrey Thomas Sodium [Moles/Vol] 139 mmol/L Normal 136-145 [facility] Comment on above: Performed By: #### C MP #### [facility] [address] [address] [address] Jeffrey Thomas Urea nitrogen [Mass/Vol] 27.0 mg/dL Critically high 7.0-18.0 [facility] Comment on above: Performed By: #### C MP #### [facility] [address] [address] [address] Jeffrey Thomas Urea nitrogen/Creatinine [Mass ratio] 22.9 mg/mg Normal [facility] Comment on above: Performed By: #### C MP #### [facility] [address] [address] [address] Jeffrey Thomas Albumin [Mass/Vol] 3.3 g/dL Critically low 3.4-5.0 [facility] Comment on above: Performed By: #### A MM #### [facility] [address] [address] [address] Jeffrey Thomas Albumin/Globulin [Mass ratio] 1.0 {ratio} Normal [facility] Comment on above: Performed By: #### A MM #### [facility] [address] [address] [address] Jeffrey Thomas ALP [Catalytic activity/Vol] 127 U/L Critically high 46-116 [facility] Comment on above: Performed By: #### A MM #### [facility] [address] [address] [address] Jeffrey Thomas ALT [Catalytic activity/Vol] 10 U/L Critically low 14-59 [facility] Comment on above: Performed By: #### A MM #### [facility] [address] [address] [address] Jeffrey Thomas Anion gap [Moles/Vol] 12.9 mmol/L Normal Th [facility] Comment on above: Performed By: #### A MM #### [facility] [address] [address] [address] Jeffrey Thomas AST [Catalytic activity/Vol] 20 U/L Normal 15-37 [facility] Comment on above: Performed By: #### A MM #### [facility] [address] [address] [address] Jeffrey Thomas Bilirubin [Mass/Vol] 0.3 mg/dL Normal 0.2-1.0 [facility] Comment on above: Performed By: #### A MM #### [facility] [address] [address] [address] Jeffrey Thomas Calcium [Mass/Vol] 8.9 mg/dL Normal 8.5-10.1 [facility] Comment on above: Performed By: #### A MM #### [facility] [address] [address] [address] Jeffrey Thomas Chloride [Moles/Vol] 106 mmol/L Normal 98-107 [facility] Comment on above: Performed By: #### A MM #### [facility] [address] [address] [address] Jeffrey Thomas CO2 [Moles/Vol] 21.8 mmol/L Normal 21.0-32.0 [facility] Comment on above: Performed By: #### A MM #### [facility] [address] [address] [address] Jeffrey Thomas Creatinine [Mass/Vol] 1.54 mg/dL Critically high 0.55-1.02 [facility] Comment on above: Performed By: #### A MM #### [facility] [address] [address] [address] Jeffrey Thomas EGFR-AF CZECH 41 mL/min/1.73m2 Critically low >=[address] [facility] Comment on above: Performed By: #### A MM #### [facility] [address] [address] [address] Jeffrey Thomas EGFR-NON AF CZECH 34 mL/min/1.73m2 Critically low >=60 [facility] Comment on above: Performed By: #### A MM #### [facility] [address] [address] [address] Jeffrey Thomas Globulin (S) [Mass/Vol] 3.4 g/dL Normal [facility] Comment on above: Performed By: #### A MM #### [facility] [address] [address] [address] Jeffrey Thomas Glucose [Mass/Vol] 139 mg/dL Critically high 74-106 T [facility] Comment on above: Performed By: #### A MM #### [facility] [address] [place] [address] Dr. Jeffrey Thomas Potassium [Moles/Vol] 3.7 mmol/L Normal 3.5-5.1 [facility] Comment on above: Performed By: #### A MM #### [facility] [address] [place] [address] Dr. Jeffrey Thomas Protein [Mass/Vol] 6.7 g/dL Normal 6.4-8.2 [facility] Comment on above: Performed By: #### A MM #### [facility] [address] [place] [address] Dr. Jeffrey Thomas Sodium [Moles/Vol] 139 mmol/L Normal 136-145 [facility] Comment on above: Performed By: #### A MM #### [facility] [address] [place] [address] Dr. Jeffrey Thomas Urea nitrogen [Mass/Vol] 31.0 mg/dL Critically high 7.0-18.0 [facility] Comment on above: Performed By: #### A MM #### [facility] [address] [place] [address] Dr. Jeffrey Thomas Urea nitrogen/Creatinine [Mass ratio] 20.1 mg/mg Normal [facility] Comment on above: Performed By: #### A MM #### [facility] [address] [place] [address] Dr. Jeffrey Thomas PROTIMEon 12-12-2021 INR Coag (PPP) [Relative time] 1.13 {INR} Normal [facility] Comment on above: Performed By: #### T 4LC #### [facility] [address] [place] [address] Dr. Jeffrey Thomas INR GUIDELINES SEE BELOW Normal [facility] Comment on above: Result Comment: MERARI RED INR: 2.0 - 3.0 CONDITIONS NOT LISTED BELOW 2.5 - 3.5 FOR PROSTHETIC HEART VALVE REPLACEMENT 2.5 - 3.5 RECURRENT THROMBOSIS Performed By: #### T 4LC #### [facility] [address] [address] [address] Jeffrey Thomas PT Coag (PPP) [Time] 12.1 s Critically high 9.0-11.6 [facility] Comment on above: Performed By: #### T 4LC #### [facility] [address] [place] [address] Dr. Jeffrey Thomas TSHon 12-12-2021 TSH 0.729 uIU/mL Normal 0.358-3.740 [facility] Comment on above: Performed By: #### C MP #### [facility] [address] [place] [address] Dr. Jeffrey Thomas XR CHEST 1 Von 12-12-2021 XR CHEST 1 V CXR HISTORY: Shortness of breath. COMPARISON: 12/02/2020 TECHNIQUE: 1 view of the chest submitted for review. FINDINGS: Clips are seen in the right upper lung. Airspace demonstrated in the left lung base. There is also a airspace demonstrated in the right middle lobe. There is prominence of the parahilar interclavicle area which is incompletely imaged on this chest x-ray. Bibasilar airspace opacities are demonstrated left greater than right. The lungs are hyperaerated. The cardiac silhouette measures within normal. Pulmonary vascularity is mildly prominent. Osseous structures are normal for age. IMPRESSION: 1. Incompletely imaged infraclavicular areas of the mediastinal areas of the upper lungs. CT scan of the chest would help better delineate to exclude underlying mass. 2. Airspace opacity in the left lung base. Please correlate for pneumonia versus atelectasis. Electronically authenticated by: GUILLE RAY Date: 2021-12-11 23:48 Normal [facility] PT Coag (PPP) [Time]on 01-08 INR Coag (PPP) [Relative time] 1.5 {INR} <=5.0 [facility] Comment on above: The recommended ther apeutic INR range for most cardiac indications is 2.0-3.0 For high intensity therapy (i.e. mechanical heart valves), the recommended range is 2.5-3.5 Interpretation and review of laboratory results Abnormal [facility] PT Coag (Bld) [Time] 18.1 s High [facility] Basic metabolic 2000 panelon 01-07-2021 Calcium [Mass/Vol] 8.8 mg/dL Normal 8.5-10.6 [facility] Chloride [Moles/Vol] 107 mmol/L Normal 98-107 [facility] CO2 [Moles/Vol] 25 mmol/L Normal 21-32 [facility] Creatinine [Mass/Vol] 1.87 mg/dL High 0.55-1.02 [facility] Glucose [Mass/Vol] 96 mg/dL Normal 70-99 [facility] Potassium [Moles/Vol] 4.5 mmol/L Normal 3.5-5.1 [facility] Sodium [Moles/Vol] 141 mmol/L Normal 136-145 [facility] Urea nitrogen (BldV) [Mass/Vol] 27 mg/dL High 7.0-18.0 [facility] Urea nitrogen/Creatinine [Mass ratio] 14 mg/mg Normal [facility] Coronavirus (COVID-19/SARS-C oV-2) RAPIDon 01-07-2021 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 N Normal [facility] First test N Normal [facility] ICU N Normal [facility] Illness or injury onset date and time Normal [facility] Patient was hospitalized because of this condition Y Normal [facility] status N Normal [facility] Resides in congregate care setting N Normal [facility] SARS-CoV-2 (COVID-19) RNA REBECCA+probe Ql (Resp) Not detected Normal NDET [facility] Comment on above: Result Comment: This test was performed via the Med ePad ID NOW COVID 19 assay and has been authorized by FDA under an Emergency Use Authorization (EUA). The assay is validated for nasopharyngeal ([employer]ICE), nasal, and oropharyngeal (OP) direct swabs. The limit of detection of the assay is approximately 125 genome equivalence/mL, however, detection of SARS-CoV-2 may be affected by the sample collection and transport methods, patient factors (e.g.,presence of symptoms, and-or stage of infection), and a negative result does not rule out the possibility of infection. For updated information, refer to the Center for Disease Control website: www.cdc.gov/coronavirus. Symptomatic as defined by CDC N Normal [facility] Gentamicin Trough Levelon Gentamicin trough [Mass/Vol] 1.0 mg/L Normal [facility] Comment on above: Result Comment: Refe rence range: 0.0 to 2.0 Unit: UG/ML PT Coag (PPP) [Time]on 01-07 INR Coag (Bld) [Relative time] 1.3 {INR} Normal [facility] Comment on above: Order Comment: Preho spitalization had reported chronic use of Coumadin which was held for surgery. Result Comment: DURI NG THE INDUCTION PHASE OF ORAL ANTICOAGULATION, THE INR MAY NOT REFLECT THE ANTICOAGULANT STATUS OF THE PATIENT. THERAPEUTIC RANGES FOR INR'S ARE: MOST CLINICAL SITUATIONS: INR 2.0-3.0 MECHANICAL PROSTHETIC VALVES: INR 2.5-3.5 CRITICAL: INR 5.0 Prothrombin Timeon PT Coag (PPP) [Time] 15.7 s High 11.9-14.6 [facility] Comment on above: Order Comment: Preho spitalization had reported chronic use of Coumadin which was held for surgery. Tobramycin random [Moles/Vol ]on 01-07-2021 Tobramycin [Mass/Vol] SEE SEPARATE REPORT Normal 0.5-1 .5 [facility] Comment on above: Result Comment: SEE NOTES REVIEW TAB FOR RESULTS Basic metabolic 2000 panelon 01-06-2021 Calcium [Mass/Vol] 8.6 mg/dL Normal 8.5-10.6 [facility] Chloride [Moles/Vol] 107 mmol/L Normal 98-107 [facility] CO2 [Moles/Vol] 24 mmol/L Normal 21-32 [facility] Creatinine [Mass/Vol] 1.82 mg/dL High 0.55-1.02 [facility] Glucose [Mass/Vol] 87 mg/dL Normal 70-99 [facility] Potassium [Moles/Vol] 4.8 mmol/L Normal 3.5-5.1 [facility] Sodium [Moles/Vol] 140 mmol/L Normal 136-145 [facility] Urea nitrogen (BldV) [Mass/Vol] 30 mg/dL High 7.0-18.0 [facility] Urea nitrogen/Creatinine [Mass ratio] 16 mg/mg Normal [facility] Hematocriton 01-06-2021 Hematocrit (Bld) [Volume fraction] 28.9 % Low 34.0-50.0 [facility] Hemoglobinon 01-06-2021 Hemoglobin (Bld) [Mass/Vol] 9.4 g/dL Low 11.5-17.0 [facility] Histopathology Requeston Relevant diagnostic tests/laboratory data Narrative SPECIMEN DESCRIPTION 1 LEFT KNEE TISSUE RESULT SEE SEPARATE REPORT RESULT SEE NOTES REVIEW TAB FOR RESULTS ROUTINE LAB Report Date: 01/06/2021 09:09:05 Collect Date: 01/03/2021 12:44:00 Normal [facility] PT Coag (PPP) [Time]on 01-06 INR Coag (Bld) [Relative time] 1.1 {INR} Normal [facility] Comment on above: Order Comment: Preho spitalization had reported chronic use of Coumadin which was held for surgery. Result Comment: NOEMÍ GOMEZ THE INDUCTION PHASE OF ORAL ANTICOAGULATION, THE INR MAY NOT REFLECT THE ANTICOAGULANT STATUS OF THE PATIENT. THERAPEUTIC RANGES FOR INR'S ARE: MOST CLINICAL SITUATIONS: INR 2.0-3.0 MECHANICAL PROSTHETIC VALVES: INR 2.5-3.5 CRITICAL: INR 5.0 Prothrombin Timeon PT Coag (PPP) [Time] 14.2 s Normal 11.9-14.6 [facility] Comment on above: Order Comment: Preho spitalization had reported chronic use of Coumadin which was held for surgery. Basic metabolic 2000 panelon 01-05-2021 Calcium [Mass/Vol] 8.1 mg/dL Low 8.5-10.6 [facility] Chloride [Moles/Vol] 108 mmol/L High 98-107 [facility] CO2 [Moles/Vol] 27 mmol/L Normal 21-32 [facility] Creatinine [Mass/Vol] 2.05 mg/dL High 0.55-1.02 [facility] Glucose [Mass/Vol] 91 mg/dL Normal 70-99 [facility] Potassium [Moles/Vol] 4.7 mmol/L Normal 3.5-5.1 [facility] Sodium [Moles/Vol] 141 mmol/L Normal 136-145 [facility] Urea nitrogen (BldV) [Mass/Vol] 36 mg/dL High 7.0-18.0 [facility] Urea nitrogen/Creatinine [Mass ratio] 18 mg/mg Normal [facility] CBC W Auto Differential pane l (Bld)on 01-05-2021 Basophils (Bld) [#/Vol] 0.1 thou/mcL Normal 0.0-0.2 [facility] Basophils/100 WBC (Bld) 0.9 % Normal 0-3 [facility] Differential cell count method Nom (Bld) AUTOMATED DIFFERENTIAL Normal [facility] Eosinophils (Bld) [#/Vol] 0.2 thou/mcL Normal 0.0-0.4 [facility] Eosinophils/100 WBC (Bld) 2.2 % Normal 0-7 [facility] Erythrocyte distribution width (RBC) [Entitic vol] 16.0 % High 11.7-15.0 [facility] Hematocrit (Bld) [Volume fraction] 21.4 % Low 34.0-50.0 [facility] Hemoglobin (Bld) [Mass/Vol] 6.8 g/dL Off scale low 11.5-17.0 [facility] Comment on above: Result Comment: RESU LTS VERIFIED AND CALLED TO/READ BACK BY ALFONSO HILARIO 01.05.21 @0559.BA Lymphocytes (Bld) [#/Vol] 0.9 thou/mcL Normal 0.7-4.5 [facility] Lymphocytes/100 WBC (Bld) 12.7 % Low 14-46 [facility] MCH (RBC) [Entitic mass] 27.2 Picograms Normal 27.0-34.0 [facility] MCHC (RBC) [Mass/Vol] 31.8 g/dL Low 32.0-36.0 [facility] MCV (RBC) [Entitic vol] 85.5 fL Normal 80-98 [facility] Monocytes (Bld) [#/Vol] 0.6 thou/mcL Normal 0.1-1.0 [facility] Monocytes/100 WBC (Bld) 8.1 % Normal 4-13 [facility] Neutrophils (Bld) [#/Vol] 5.7 thou/mcL Normal 1.5-7.8 [facility] Neutrophils/100 WBC (Bld) 76.1 % High 40-74 [facility] Platelet mean volume (Bld) [Entitic vol] 10.5 fL Normal 7.5-11.2 [facility] Platelets (Bld) [#/Vol] 141 thou/mcL Normal 140-415 [facility] RBC (Bld) [#/Vol] 2.50 x(10)6/mcL Low 3.80-5.60 [facility] WBC (Bld) [#/Vol] 7.5 thou/mcL Normal 4.0-10.5 [facility] Gentamicin Trough Levelon Gentamicin trough [Mass/Vol] 3.9 mg/L Critically high [facility] Comment on above: Result Comment: Refe michelle range: 0.0 to 2.0 Unit: UG/ML (NOTE) Critical value(s) on tests gentt called to and read-back by clementine nuñez at location [facility] by vinnie time called _01/05/21 12:20 Hematocriton 01-05-2021 Hematocrit (Bld) [Volume fraction] 27.2 % Low 34.0-50.0 [facility] Hemoglobinon 01-05-2021 Hemoglobin (Bld) [Mass/Vol] 8.8 g/dL Low 11.5-17.0 [facility] PT Coag (PPP) [Time]on 01-05 INR Coag (Bld) [Relative time] 1.1 {INR} Normal [facility] Comment on above: Order Comment: Preho spitalization had reported chronic use of Coumadin which was held for surgery. Result Comment: NOEMÍ JASON THE INDUCTION PHASE OF ORAL ANTICOAGULATION, THE INR MAY NOT REFLECT THE ANTICOAGULANT STATUS OF THE PATIENT. THERAPEUTIC RANGES FOR INR'S ARE: MOST CLINICAL SITUATIONS: INR 2.0-3.0 MECHANICAL PROSTHETIC VALVES: INR 2.5-3.5 CRITICAL: INR 5.0 Pathology studyon 01-05-2021 Case report TRINITY GODINEZ [id number] YRS F [id number] /BD [id number] ORDERING PHYSICIAN: CALOS SMITH 82 RESULT TRANSMITTED: 01/05/21 1253 S U R G I C A L P A T H O L O G Y R E P O R T CLINICAL INFORMATION: PREOP DIAGNOSIS: Failed left knee, status post infection. POSTOP DIAGNOSIS: Failed left knee, status post infection. PROCEDURE: Left knee revision arthroplasty. TISSUE REMOVED: Left knee tissue, rule out perivascular lymphocytic infiltrates. GROSS DESCRIPTION: Received in formalin, labeled with the patient's name and left knee tissue, is a 4 x 3.5 x 1 cm aggregate of multiple fragments of rogers-pink, rubbery soft tissue. Upon sectioning, the cut surface is rogers-pink, soft and homogeneous. Hot [employer] Pl[employer] Supervisor sections are submitted in block A1. (RS/1C/MS/RT) Gross examination was performed at [facility]. AJB:MEI 01/04/21 By: LICHA ZEPEDA M.D. (Electronic Signature) MICROSCOPIC: The technical component was performed at [facility], [address] [place] [address]. Microscopic examination was performed. Case resulted at [facility]. DIAGNOSIS: Left knee tissue, revision arthroplasty: -DENSE FIBROUS TISSUE WITH PATCHY CHRONIC INFLAMMATION, FOREIGN BODY GIANT CELL REACTION, AND OSSEOUS METAPLASIA. NOTE: Perivascular lymphocytic inflammation is mild and patchy. JH2:JH2:JH21 END OF REPORT [employer] Comment on above: END OF REPORT [employer] Prothrombin Timeon PT Coag (PPP) [Time] 14.5 s Normal 11.9-14.6 Moun [facility] Comment on above: Order Comment: Preho spitalization had reported chronic use of Coumadin which was held for surgery. Rh Confirm Nom (Bld)on 01-05 ABO group Nom (Bld) A Normal [facility] Rh Nom (Bld) Positive Normal [facility] Tobramycin random [Moles/Vol ]on 01-05-2021 Tobramycin [Mass/Vol] SEE SEPARATE REPORT Normal 0.5-1 .5 [facility] Comment on above: Result Comment: SEE NOTES REVIEW TAB FOR RESULTS Vancomycin [Moles/Vol]on Vancomycin random [Mass/Vol] <3.5 Off scale low 10.0-50.0 [facility] Basic metabolic 2000 panelon 01-04-2021 Calcium [Mass/Vol] 8.5 mg/dL Normal 8.5-10.6 [facility] Chloride [Moles/Vol] 104 mmol/L Normal 98-107 Moun [facility] CO2 [Moles/Vol] 26 mmol/L Normal 21-32 [facility] Creatinine [Mass/Vol] 2.32 mg/dL High 0.55-1.02 [facility] Glucose [Mass/Vol] 90 mg/dL Normal 70-99 [facility] Potassium [Moles/Vol] 5.7 mmol/L Critically high 3.5-5.1 [facility] Comment on above: Result Comment: RESU LTS VERIFIED AND CALLED TO/READ BACK BY ABRAM MCQUEEN 10.5.[address] [facility]. Sodium [Moles/Vol] 138 mmol/L Normal 136-145 [facility] Urea nitrogen (BldV) [Mass/Vol] 45 mg/dL High 7.0-18.0 [facility] Urea nitrogen/Creatinine [Mass ratio] 19 mg/mg Normal [facility] CBC W Auto Differential pane l (Bld)on 01-04-2021 Basophils (Bld) [#/Vol] 0.0 thou/mcL Normal 0.0-0.2 [facility] Basophils/100 WBC (Bld) 0.3 % Normal 0-3 [facility] Differential cell count method Nom (Bld) AUTOMATED DIFFERENTIAL Normal [facility] Eosinophils (Bld) [#/Vol] 0.0 thou/mcL Normal 0.0-0.4 [facility] Eosinophils/100 WBC (Bld) 0.2 % Normal 0-7 [facility] Erythrocyte distribution width (RBC) [Entitic vol] 15.5 % High 11.7-15.0 [facility] Hematocrit (Bld) [Volume fraction] 23.5 % Low 34.0-50.0 [facility] Hemoglobin (Bld) [Mass/Vol] 7.5 g/dL Low 11.5-17.0 [facility] Lymphocytes (Bld) [#/Vol] 1.0 thou/mcL Normal 0.7-4.5 [facility] Lymphocytes/100 WBC (Bld) 13.3 % Low 14-46 [facility] MCH (RBC) [Entitic mass] 27.4 Picograms Normal 27.0-34.0 [facility] MCHC (RBC) [Mass/Vol] 32.0 g/dL Normal 32.0-36.0 [facility]in [facility] MCV (RBC) [Entitic vol] 85.5 fL Normal 80-98 [facility] Monocytes (Bld) [#/Vol] 0.6 thou/mcL Normal 0.1-1.0 [facility] Monocytes/100 WBC (Bld) 7.5 % Normal 4-13 [facility] Neutrophils (Bld) [#/Vol] 5.8 thou/mcL Normal 1.5-7.8 [facility] Neutrophils/100 WBC (Bld) 78.7 % High 40-74 [facility] Platelet mean volume (Bld) [Entitic vol] 10.5 fL Normal 7.5-11.2 [facility] Platelets (Bld) [#/Vol] 167 thou/mcL Normal 140-415 [facility] RBC (Bld) [#/Vol] 2.75 x(10)6/mcL Low 3.80-5.60 [facility] WBC (Bld) [#/Vol] 7.3 thou/mcL Normal 4.0-10.5 [facility] PT Coag (PPP) [Time]on 01-04 INR Coag (Bld) [Relative time] 1.0 {INR} Normal [facility] Comment on above: Order Comment: Preho spitalization had reported chronic use of Coumadin which was held for surgery. Result Comment: DURI NG THE INDUCTION PHASE OF ORAL ANTICOAGULATION, THE INR MAY NOT REFLECT THE ANTICOAGULANT STATUS OF THE PATIENT. THERAPEUTIC RANGES FOR INR'S ARE: MOST CLINICAL SITUATIONS: INR 2.0-3.0 MECHANICAL PROSTHETIC VALVES: INR 2.5-3.5 CRITICAL: INR 5.0 Prothrombin Timeon PT Coag (PPP) [Time] 13.6 s Normal 11.9-14.6 [facility] Comment on above: Order Comment: Preho spitalization had reported chronic use of Coumadin which was held for surgery. XR CHEST 1 VIEWon 01-04-2021 EXAMINATION TYPE: XR Chest 1 View DATE OF EXAM: 01/04/2021 11:36 AM HISTORY: Line placement COMPARISON: Radiograph dated 01/04/2021 FINDINGS: Right PICC is shown terminating in the superior vena cava. Streaky opacity is noted in the mid left lung. No pneumothorax or large pleural effusion identified. Cardiac silhouette is within normal limits for technique. No acute osseous findings. Prior left rib fractures. Right surgical clips. IMPRESSION: 1. Right PICC terminates in the superior vena cava. 2. Streaky opacity in the mid left lung, likely atelectasis or scarring. [place] thanks you for the opportunity to care for your patient. Workstation ID: [id number] - [id number] FINAL REPORT Dictated By: Garo Albarado MD 01/04/2021 11:41 Assigned Physician: Garo Albarado MD Reviewed and Electronically Signed By: Garo Albarado MD 01/04/2021 11:45 Transcribed by: [facility] 01/04/2021 11:41 Technologist: [facility] Garo Albarado MD - 01/08/2021 EXAMINATION TYPE: XR Chest 1 View DATE OF EXAM: 01/04/2021 11:36 AM HISTORY: Line placement COMPARISON: Radiograph dated 01/04/2021 FINDINGS: Right PICC is shown terminating in the superior vena cava. Streaky opacity is noted in the mid left lung. No pneumothorax or large pleural effusion identified. Cardiac silhouette is within normal limits for technique. No acute osseous findings. Prior left rib fractures. Right surgical clips. IMPRESSION: 1. Right PICC terminates in the superior vena cava. 2. Streaky opacity in the mid left lung, likely atelectasis or scarring. Ramy Santos thanks you for the opportunity to care for your patient. Workstation ID: [id number] - [id number] FINAL REPORT Dictated By: Garo Albarado MD 01/04/2021 11:41 Assigned Physician: Garo Albarado MD Reviewed and Electronically Signed By: Garo Albarado MD 01/04/2021 11:45 Transcribed by: STEW 01/04/2021 11:41 Technologist: RAQUEL [employer] Radiology Study observation (narrative) [employer] XR CHEST 1 VIEWOrdered By: Austyn Albarado on 01-04-2021 [employer] Work Phone: XR Chest 1 Viewon 01-04-2021 XR Chest Single view EXAMINATION TYPE: X R Chest 1 View DATE OF EXAM: 01/04/2021 11:36 AM HISTORY: Line placement COMPARISON: Radiograph dated 01/04/2021 FINDINGS: Right PICC is shown terminating in the superior vena cava. Streaky opacity is noted in the mid left lung. No pneumothorax or large pleural effusion identified. Cardiac silhouette is within normal limits for technique. No acute osseous findings. Prior left rib fractures. Right surgical clips. IMPRESSION: 1. Right PICC terminates in the superior vena cava. 2. Streaky opacity in the mid left lung, likely atelectasis or scarring. Ramy Santos thanks you for the opportunity to care for your patient. Workstation ID: [id number] - [id number] FINAL REPORT Dictated By: Garo Albarado MD 01/04/2021 11:41 Assigned Physician: Gaor Albarado MD Reviewed and Electronically Signed By: Garo Albarado MD 01/04/2021 11:45 Transcribed by: STEW 01/04/2021 11:41 Technologist: RAQUEL Normal [facility] Blood type and Indirect anti body screen panel (Bld)on 01-03-2021 Blood group antibody screen Ql Negative Normal NEG [facility] Rh Nom (Bld) Positive Normal [facility] Cell Count Body Fluidon Cell count panel (Body fld) COLOR, FLUID RED Normal [facility] Culture Aerobicon 01-03-2021 Bacteria identified Aer cx Nom (Unsp spec) [facility] NAMED [facility] Microbiology PROCEDURE: Culture Aerobic SOURCE: Tissue BODY SITE: COLLECTED DATE/TIME: 01/03/2021 12:48 EDT RECEIVED DATE/TIME: 01/03/2021 12:48 EDT START DATE/TIME: 01/03/2021 12:48 EDT FREE TEXT SOURCE: TISSUE-LT KNEE D INTERFACED REPORTS Final Report [] Verified Date/Time/Personnel: 01/06/2021 10:57 EDT CONTRIBUTOR_SYSTEM, CO_PN NO GROWTH AFTER 72 HOURS Preliminary Report [] Verified Date/Time/Personnel: 01/05/2021 06:57 EDT CONTRIBUTOR_SYSTEM, CO_PN NO GROWTH AFTER 48 HOURS FINAL TO FOLLOW Preliminary Report [] Verified Date/Time/Personnel: 01/04/2021 07:16 EDT CONTRIBUTOR_SYSTEM, CO_PN NO GROWTH AT 12-24 HOURS Gram Stain [] Verified Date/Time/Personnel: 01/04/2021 05:12 EDT CONTRIBUTOR_SYSTEM, CO_PN NO POLYS SEEN, NO EPITHELIALS SEEN, NO ORGANISMS SEEN Normal [facility] Comment on above: Performed By: #### 6 34-6 ####[address] Bacteria identified Aer cx Nom (Unsp spec) [facility] NAMED [facility] Microbiology PROCEDURE: Culture Aerobic SOURCE: Tissue BODY SITE: COLLECTED DATE/TIME: 01/03/2021 12:47 EDT RECEIVED DATE/TIME: 01/03/2021 12:47 EDT START DATE/TIME: 01/03/2021 12:47 EDT FREE TEXT SOURCE: TISSUE-LT KNEE C INTERFACED REPORTS Final Report [] Verified Date/Time/Personnel: 01/06/2021 10:57 EDT CONTRIBUTOR_SYSTEM, CO_PN NO GROWTH AFTER 72 HOURS Preliminary Report [] Verified Date/Time/Personnel: 01/05/2021 06:58 EDT CONTRIBUTOR_SYSTEM, CO_PN NO GROWTH AFTER 48 HOURS FINAL TO FOLLOW Preliminary Report [] Verified Date/Time/Personnel: 01/04/2021 07:16 EDT CONTRIBUTOR_SYSTEM, CO_PN NO GROWTH AT 12-24 HOURS Gram Stain [] Verified Date/Time/Personnel: 01/04/2021 05:15 EDT CONTRIBUTOR_SYSTEM, CO_PN NO POLYS SEEN, NO EPITHELIALS SEEN, NO ORGANISMS SEEN Normal [facility] Comment on above: Performed By: #### 6 34-6 ####[address] Bacteria identified Aer cx Nom (Unsp spec) [facility] NAMED [facility] Microbiology PROCEDURE: Culture Aerobic SOURCE: Tissue BODY SITE: COLLECTED DATE/TIME: 01/03/2021 12:46 EDT RECEIVED DATE/TIME: 01/03/2021 12:46 EDT START DATE/TIME: 01/03/2021 12:46 EDT FREE TEXT SOURCE: TISSUE-LT KNEE B INTERFACED REPORTS Final Report [] Verified Date/Time/Personnel: 01/06/2021 10:57 EDT CONTRIBUTOR_SYSTEM, CO_PN NO GROWTH AFTER 72 HOURS Preliminary Report [] Verified Date/Time/Personnel: 01/05/2021 06:58 EDT CONTRIBUTOR_SYSTEM, CO_PN NO GROWTH AFTER 48 HOURS FINAL TO FOLLOW Preliminary Report [] Verified Date/Time/Personnel: 01/04/2021 07:17 EDT CONTRIBUTOR_SYSTEM, CO_PN NO GROWTH AT 12-24 HOURS Gram Stain [] Verified Date/Time/Personnel: 01/04/2021 05:06 EDT CONTRIBUTOR_SYSTEM, CO_PN NO POLYS SEEN, NO EPITHELIALS SEEN, NO ORGANISMS SEEN Normal [facility] Comment on above: Performed By: #### 6 34-6 ####[address] Bacteria identified Aer cx Nom (Unsp spec) [facility] NAMED [facility] Microbiology PROCEDURE: Culture Aerobic SOURCE: Tissue BODY SITE: COLLECTED DATE/TIME: 01/03/2021 12:45 EDT RECEIVED DATE/TIME: 01/03/2021 12:45 EDT START DATE/TIME: 01/03/2021 12:45 EDT FREE TEXT SOURCE: TISSUE-LT KNEE A INTERFACED REPORTS Final Report [] Verified Date/Time/Personnel: 01/06/2021 10:56 EDT CONTRIBUTOR_SYSTEM, CO_PN NO GROWTH AFTER 72 HOURS Preliminary Report [] Verified Date/Time/Personnel: 01/05/2021 06:57 EDT CONTRIBUTOR_SYSTEM, CO_PN NO GROWTH AFTER 48 HOURS FINAL TO FOLLOW Preliminary Report [] Verified Date/Time/Personnel: 01/04/2021 07:16 EDT CONTRIBUTOR_SYSTEM, CO_PN NO GROWTH AT 12-24 HOURS Gram Stain [] Verified Date/Time/Personnel: 01/04/2021 05:11 EDT CONTRIBUTOR_SYSTEM, CO_PN NO POLYS SEEN, NO EPITHELIALS SEEN, NO ORGANISMS SEEN Normal [facility] Comment on above: Performed By: #### 6 34-6 ####[address] Culture Anaerobicon 01-04-20 21 Bacteria identified Anaer cx Nom (Unsp spec) [facility] NAMED [facility] Microbiology PROCEDURE: Culture Anaerobic SOURCE: Tissue BODY SITE: COLLECTED DATE/TIME: 01/03/2021 12:48 EDT RECEIVED DATE/TIME: 01/03/2021 12:48 EDT START DATE/TIME: 01/03/2021 12:48 EDT FREE TEXT SOURCE: TISSUE-LT KNEE D INTERFACED REPORTS Final Report [] Verified Date/Time/Personnel: 01/07/2021 12:12 EDT CONTRIBUTOR_SYSTEM, CO_PN NO ANAEROBES ISOLATED AFTER 4 DAYS. Preliminary Report [] Verified Date/Time/Personnel: 01/05/2021 07:33 EDT CONTRIBUTOR_SYSTEM, CO_PN NO ANAEROBES ISOLATED AFTER 48 HOURS, CULTURE WILL BE HELD FOR 4 DAYS. Preliminary Report [] Verified Date/Time/Personnel: 01/03/2021 23:34 EDT CONTRIBUTOR_SYSTEM, CO_PN CULTURE IN PROGRESS Normal [facility] Comment on above: Performed By: #### 6 35-3 ####[address] Bacteria identified Anaer cx Nom (Unsp spec) [facility] NAMED [facility] Microbiology PROCEDURE: Culture Anaerobic SOURCE: Tissue BODY SITE: COLLECTED DATE/TIME: 01/03/2021 12:47 EDT RECEIVED DATE/TIME: 01/03/2021 12:47 EDT START DATE/TIME: 01/03/2021 12:47 EDT FREE TEXT SOURCE: TISSUE-LT KNEE C INTERFACED REPORTS Final Report [] Verified Date/Time/Personnel: 01/07/2021 12:11 EDT CONTRIBUTOR_SYSTEM, CO_PN NO ANAEROBES ISOLATED AFTER 4 DAYS. Preliminary Report [] Verified Date/Time/Personnel: 01/05/2021 07:33 EDT CONTRIBUTOR_SYSTEM, CO_PN NO ANAEROBES ISOLATED AFTER 48 HOURS, CULTURE WILL BE HELD FOR 4 DAYS. Preliminary Report [] Verified Date/Time/Personnel: 01/03/2021 23:34 EDT CONTRIBUTOR_SYSTEM, CO_PN CULTURE IN PROGRESS [facility] Comment on above: Performed By: #### 6 35-3 ####[address] Bacteria identified Anaer cx Nom (Unsp spec) [facility] NAMED [facility] Microbiology PROCEDURE: Culture Anaerobic SOURCE: Tissue BODY SITE: COLLECTED DATE/TIME: 01/03/2021 12:46 EDT RECEIVED DATE/TIME: 01/03/2021 12:46 EDT START DATE/TIME: 01/03/2021 12:46 EDT FREE TEXT SOURCE: TISSUE-LT KNEE B INTERFACED REPORTS Final Report [] Verified Date/Time/Personnel: 01/07/2021 12:11 EDT CONTRIBUTOR_SYSTEM, CO_PN NO ANAEROBES ISOLATED AFTER 4 DAYS. Preliminary Report [] Verified Date/Time/Personnel: 01/05/2021 07:34 EDT CONTRIBUTOR_SYSTEM, CO_PN NO ANAEROBES ISOLATED AFTER 48 HOURS, CULTURE WILL BE HELD FOR 4 DAYS. Preliminary Report [] Verified Date/Time/Personnel: 01/03/2021 23:34 EDT CONTRIBUTOR_SYSTEM, CO_PN CULTURE IN PROGRESS [facility] Comment on above: Performed By: #### 6 35-3 ####[address] Bacteria identified Anaer cx Nom (Unsp spec) [facility] NAMED [facility] Microbiology PROCEDURE: Culture Anaerobic SOURCE: Tissue BODY SITE: COLLECTED DATE/TIME: 01/03/2021 12:45 EDT RECEIVED DATE/TIME: 01/03/2021 12:45 EDT START DATE/TIME: 01/03/2021 12:45 EDT FREE TEXT SOURCE: TISSUE-LT KNEE A INTERFACED REPORTS Final Report [] Verified Date/Time/Personnel: 01/07/2021 12:11 EDT CONTRIBUTOR_SYSTEM, CO_PN NO ANAEROBES ISOLATED AFTER 4 DAYS. Preliminary Report [] Verified Date/Time/Personnel: 01/05/2021 07:34 EDT CONTRIBUTOR_SYSTEM, CO_PN NO ANAEROBES ISOLATED AFTER 48 HOURS, CULTURE WILL BE HELD FOR 4 DAYS. Preliminary Report [] Verified Date/Time/Personnel: 01/03/2021 23:34 EDT CONTRIBUTOR_SYSTEM, CO_PN CULTURE IN PROGRESS [facility] Comment on above: Performed By: #### 6 35-3 ####[address] Bacteria identified Anaer cx Nom (Unsp spec) [facility]MER[facility] NAMED [facility] Microbiology PROCEDURE: Culture Anaerobic SOURCE: Joint Fl BODY SITE: COLLECTED DATE/TIME: 01/03/2021 12:40 EDT RECEIVED DATE/TIME: 01/03/2021 12:40 EDT START DATE/TIME: 01/03/2021 12:40 EDT FREE TEXT SOURCE: JOINT FLUID-LT KNEE INTERFACED REPORTS Final Report [] Verified Date/Time/Personnel: 01/07/2021 12:12 EDT CONTRIBUTOR_SYSTEM, CO_PN NO ANAEROBES ISOLATED AFTER 4 DAYS. Preliminary Report [] Verified Date/Time/Personnel: 01/05/2021 07:31 EDT CONTRIBUTOR_SYSTEM, CO_PN NO ANAEROBES ISOLATED AFTER 48 HOURS, CULTURE WILL BE HELD FOR 4 DAYS. Preliminary Report [] Verified Date/Time/Personnel: 01/03/2021 22:43 EDT CONTRIBUTOR_SYSTEM, CO_PN CULTURE IN PROGRESS [facility] Comment on above: Performed By: #### 6 35-3 ####[place] [id number] [place], [place] Culture Funguson 01-03-2021 Fungus identified Cx Nom (Unsp spec) [facility] NAMED [facility] Microbiology PROCEDURE: Culture Fungus SOURCE: Tissue BODY SITE: COLLECTED DATE/TIME: 01/03/2021 12:48 EDT RECEIVED DATE/TIME: 01/03/2021 12:48 EDT START DATE/TIME: 01/03/2021 12:48 EDT FREE TEXT SOURCE: TISSUE-LT KNEE D INTERFACED REPORTS Final Report [] Verified Date/Time/Personnel: 01/31/2021 20:01 EDT CONTRIBUTOR_SYSTEM, CO_PN NO FUNGUS GROWN AFTER 4 WEEKS Preliminary Report [] Verified Date/Time/Personnel: 01/03/2021 23:36 EDT CONTRIBUTOR_SYSTEM, CO_PN CULTURE IN PROGRESS CULTURE WILL BE UPDATED IF A FUNGUS (INCLUDING YEAST) IS GROWN. CULTURE WILL BE HELD FOR 1-4 WEEKS [facility] Comment on above: Performed By: #### 5 80-1 ####[address] Fungus identified Cx Nom (Unsp spec) FORMER[facility] NAMED [facility] Microbiology PROCEDURE: Culture Fungus SOURCE: Tissue BODY SITE: COLLECTED DATE/TIME: 01/03/2021 12:47 EDT RECEIVED DATE/TIME: 01/03/2021 12:47 EDT START DATE/TIME: 01/03/2021 12:47 EDT FREE TEXT SOURCE: TISSUE-LT KNEE C INTERFACED REPORTS Final Report [] Verified Date/Time/Personnel: 01/31/2021 19:58 EDT CONTRIBUTOR_SYSTEM, CO_PN NO FUNGUS GROWN AFTER 4 WEEKS Preliminary Report [] Verified Date/Time/Personnel: 01/03/2021 23:36 EDT CONTRIBUTOR_SYSTEM, CO_PN CULTURE IN PROGRESS CULTURE WILL BE UPDATED IF A FUNGUS (INCLUDING YEAST) IS GROWN. CULTURE WILL BE HELD FOR 1-4 WEEKS [facility] Comment on above: Performed By: #### 5 80-1 ####[address] Fungus identified Cx Nom (Unsp spec) FORMER[facility] NAMED [facility] Microbiology PROCEDURE: Culture Fungus SOURCE: Tissue BODY SITE: COLLECTED DATE/TIME: 01/03/2021 12:46 EDT RECEIVED DATE/TIME: 01/03/2021 12:46 EDT START DATE/TIME: 01/03/2021 12:46 EDT FREE TEXT SOURCE: TISSUE-LT KNEE B INTERFACED REPORTS Final Report [] Verified Date/Time/Personnel: 01/31/2021 19:58 EDT CONTRIBUTOR_SYSTEM, CO_PN NO FUNGUS GROWN AFTER 4 WEEKS Preliminary Report [] Verified Date/Time/Personnel: 01/03/2021 23:36 EDT CONTRIBUTOR_SYSTEM, CO_PN CULTURE IN PROGRESS CULTURE WILL BE UPDATED IF A FUNGUS (INCLUDING YEAST) IS GROWN. CULTURE WILL BE HELD FOR 1-4 WEEKS [facility] Comment on above: Performed By: #### 5 80-1 ####[address] Fungus identified Cx Nom (Unsp spec) [facility] [facility] Microbiology PROCEDURE: Culture Fungus SOURCE: Tissue BODY SITE: COLLECTED DATE/TIME: 01/03/2021 12:45 EDT RECEIVED DATE/TIME: 01/03/2021 12:45 EDT START DATE/TIME: 01/03/2021 12:45 EDT FREE TEXT SOURCE: TISSUE-LT KNEE A INTERFACED REPORTS Final Report [] Verified Date/Time/Personnel: 01/31/2021 19:58 EDT CONTRIBUTOR_SYSTEM, CO_PN NO FUNGUS GROWN AFTER 4 WEEKS Preliminary Report [] Verified Date/Time/Personnel: 01/03/2021 23:36 EDT CONTRIBUTOR_SYSTEM, CO_PN CULTURE IN PROGRESS CULTURE WILL BE UPDATED IF A FUNGUS (INCLUDING YEAST) IS GROWN. CULTURE WILL BE HELD FOR 1-4 WEEKS [facility] Comment on above: Performed By: #### 5 80-1 ####[address] [place] Fungus identified Cx Nom (Unsp spec) [facility] N[facility]ED [facility] Microbiology PROCEDURE: Culture Fungus SOURCE: Joint Fl BODY SITE: COLLECTED DATE/TIME: 01/03/2021 12:40 EDT RECEIVED DATE/TIME: 01/03/2021 12:40 EDT START DATE/TIME: 01/03/2021 12:40 EDT FREE TEXT SOURCE: JOINT FLUID-LT KNEE INTERFACED REPORTS Final Report [] Verified Date/Time/Personnel: 01/31/2021 19:58 EDT CONTRIBUTOR_SYSTEM, CO_PN NO FUNGUS GROWN AFTER 4 WEEKS Preliminary Report [] Verified Date/Time/Personnel: 01/03/2021 22:45 EDT CONTRIBUTOR_SYSTEM, CO_PN CULTURE IN PROGRESS CULTURE WILL BE UPDATED IF A FUNGUS (INCLUDING YEAST) IS GROWN. CULTURE WILL BE HELD FOR 1-4 WEEKS Normal [facility] Comment on above: Performed By: #### 5 80-1 ####[address] [id number] [place], [place] Hematocriton 01-03-2021 Hematocrit (Bld) [Volume fraction] 31.6 % Low 34.0-50.0 [facility] Hemoglobinon 01-03-2021 Hemoglobin (Bld) [Mass/Vol] 10.4 g/dL Low 11.5-17.0 [facility] OR Nursingon 01-03-2021 OR Nursing Normal [facility] PACU I Nursingon 01-03-2021 PACU I Nursing CO NA PACU I Nursing Record Summary Primary Physician: Calos Smith Jr, MD Finalized Date/Time: 01/03/21 15:55:58 Pt. Name: TRINITY GODINEZ/Sex: 1955 Female Med Rec #: [id number] Physician: Calos Smith Jr, MD Financial #: [id number] Pt. Type: I Room/Bed: / Admit/Disch: 01/03/21 09:09:00 - Institution: [place] NA OR Main PACU I Case Times Entry 1 In PACU I 01/03/21 14:45:00 Ready for PACU I 01/03/21 15:54:00 Discharge Discharge from PACU 01/03/21 15:54:00 PACU I Discharge NA I Delay Reason Last Modified By: Taryn Leonard RN 01/03/21 15:55:55 CO NA OR Main PACU I Case Attendees Entry 1 Case Attendee Taryn Leonard RN Role Performed RN Last Modified By: Taryn Leonard RN 01/03/21 14:44:54 Finalized By: Taryn Leonard RN Document Signatures Signed By: Taryn Leonard RN 01/03/21 15:55 Normal [facility] PT Coag (PPP) [Time]on 01-03 INR Coag (Bld) [Relative time] 1.1 {INR} Normal [facility] Comment on above: Result Comment: DURI NG THE INDUCTION PHASE OF ORAL ANTICOAGULATION, THE INR MAY NOT REFLECT THE ANTICOAGULANT STATUS OF THE PATIENT. THERAPEUTIC RANGES FOR INR'S ARE: MOST CLINICAL SITUATIONS: INR 2.0-3.0 MECHANICAL PROSTHETIC VALVES: INR 2.5-3.5 CRITICAL: INR 5.0 PreOp Nursingon 01-03-2021 PreOp Nursing CO NA PreOp Nursing Record Summary Primary Physician: Calos Smith Jr, MD Finalized Date/Time: 01/03/21 12:12:45 Pt. Name: TRINITY GODINEZ Austyn Viveros/Sex: 1955 Female Med Rec #: [id number] Physician: Calos Smith Jr, MD Financial #: [id number] Pt. Type: I Room/Bed: / Admit/Disch: 01/03/21 09:09:00 - Institution: [place] NA OR PreOp Case Times Entry 1 PreOp Case Times In Room Time 01/03/21 09:34:00 Out Room Time 01/03/21 11:38:00 Last Modified By: Zoya Hinson RN, I 01/03/21 12:12:43 CO NA OR PreOp Case Attendees Entry 1 Case Attendee Lety Tinoco RN Role Performed RN Last Modified By: Lety Tinoco RN 01/03/21 10:14:05 Finalized By: Zoya Hinson RN, I Document Signatures Signed By: Zoya Hinson RN, I 01/03/21 12:12 Normal [facility] Prothrombin Timeon PT Coag (PPP) [Time] 13.7 s Normal 11.9-14.6 M[facility] t [facility] Surgical Pathology Final Rep tom 01-03-2021 Pathology study TRINITY GODINEZ [id number] YRS F [id number] /BD [id number] ORDERING PHYSICIAN: CALOS SMITH 82 RESULT TRANSMITTED: 01/05/21 1253 S U R G I C A L P A T H O L O G Y R E P O R T CLINICAL INFORMATION: PREOP DIAGNOSIS: Failed left knee, status post infection. POSTOP DIAGNOSIS: Failed left knee, status post infection. PROCEDURE: Left knee revision arthroplasty. TISSUE REMOVED: Left knee tissue, rule out perivascular lymphocytic infiltrates. GROSS DESCRIPTION: Received in formalin, labeled with the patient's name and left knee tissue, is a 4 x 3.5 x 1 cm aggregate of multiple fragments of rogers-pink, rubbery soft tissue. Upon sectioning, the cut surface is rogers-pink, soft and homogeneous. Hot Dip Plating Supervisor sections are submitted in block A1. (RS/1C/MS/RT) Gross examination was performed at [facility]. AJB:MEI 01/04/21 By: LICHA ZEPEDA M.D. (Electronic Signature) MICROSCOPIC: The technical component was performed at [facility], [address] [place] [address]. Microscopic examination was performed. Case resulted at [facility]. DIAGNOSIS: Left knee tissue, revision arthroplasty: -DENSE FIBROUS TISSUE WITH PATCHY CHRONIC INFLAMMATION, FOREIGN BODY GIANT CELL REACTION, AND OSSEOUS METAPLASIA. NOTE: Perivascular lymphocytic inflammation is mild and patchy. JH2:JH2:JH21 END OF REPORT END OF REPORT Normal [facility] XR KNEE 1-2 VIEWS LTon 01-03 LEFT KNEE 01/03/2021 HISTORY: Arthroplasty revision. TECHNIQUE: AP and lateral views were obtained. COMPARISON: 11/19/2020. FINDINGS: A left knee arthroplasty revision has been performed with insertion of the long stem femoral and tibial components. There is no evidence of a fracture or dislocation. There is extensive bone deposition along the medial aspect of the distal femur and dystrophic calcifications are seen surrounding the knee. This is likely reactive in nature from prior infection. There are no osseous lesions. There is a surgical drain as well as anterior skin elvira. IMPRESSION: Left knee arthroplasty revision as detailed above. Ramy Santos thanks you for the opportunity to care for your patient. Workstation ID: [id number] - [id number] FINAL REPORT Dictated By: Kerri Reyna MD 01/03/2021 15:49 Assigned Physician: Kerri Reyna MD Reviewed and Electronically Signed By: Kerri Reyna MD 01/03/2021 15:53 Transcribed by: STEW 01/03/2021 15:49 Technologist: EILEEN IM HISTORICAL RESULTS Kerri Reyna MD - 01/08/2021 LEFT KNEE 01/03/2021 HISTORY: Arthroplasty revision. TECHNIQUE: AP and lateral views were obtained. COMPARISON: 11/19/2020. FINDINGS: A left knee arthroplasty revision has been performed with insertion of the long stem femoral and tibial components. There is no evidence of a fracture or dislocation. There is extensive bone deposition along the medial aspect of the distal femur and dystrophic calcifications are seen surrounding the knee. This is likely reactive in nature from prior infection. There are no osseous lesions. There is a surgical drain as well as anterior skin elvira. IMPRESSION: Left knee arthroplasty revision as detailed above. Ramy Santos thanks you for the opportunity to care for your patient. Workstation ID: [id number] - [id number] FINAL REPORT Dictated By: Kerri Reyna MD 01/03/2021 15:49 Assigned Physician: Kerri Reyna MD Reviewed and Electronically Signed By: Kerri Reyna MD 01/03/2021 15:53 Transcribed by: [facility] 01/03/2021 15:49 Technologist: EILEEN [employer] Radiology Study observation (narrative) [employer] XR KNEE 1-2 VIEWS LTOrdered By: Kerri Reyna on 01-03-2021 [employer] Phone: XR Knee 1-2 Views LTon 01-03 XR Knee - left 1 or 2 Views LEFT KNEE 01/03/2021 HISTORY: Arthroplasty revision. TECHNIQUE: AP and lateral views were obtained. COMPARISON: 11/19/2020. FINDINGS: A left knee arthroplasty revision has been performed with insertion of the long stem femoral and tibial components. There is no evidence of a fracture or dislocation. There is extensive bone deposition along the medial aspect of the distal femur and dystrophic calcifications are seen surrounding the knee. This is likely reactive in nature from prior infection. There are no osseous lesions. There is a surgical drain as well as anterior skin elvira. IMPRESSION: Left knee arthroplasty revision as detailed above. [place] thanks you for the opportunity to care for your patient. Workstation ID: [id number] - [id number] FINAL REPORT Dictated By: Kerri Reyna MD 01/03/2021 15:49 Assigned Physician: Kerri Reyna MD Reviewed and Electronically Signed By: Kerri Reyna MD 01/03/2021 15:53 Transcribed by: STEW 01/03/2021 15:49 Technologist: DT Normal [facility] aPTT Coag (Bld) [Time]on aPTT Coag (PPP) [Time] 25.0 s Normal 23.2-34.6 [facility] Histopathology Requeston Relevant diagnostic tests/laboratory data Narrative SPECIMEN DESCRIPTION 1 LEFT KNEE RESULT SEE SEPARATE REPORT RESULT SEE NOTES REVIEW TAB FOR RESULTS ROUTINE LAB Report Date: 11/24/2020 05:51:32 Collect Date: 11/19/2020 13:56:00 Normal [facility] Basic metabolic 2000 panelon 11-22-2020 Calcium [Mass/Vol] 8.0 mg/dL Low 8.5-10.6 [facility] Chloride [Moles/Vol] 103 mmol/L Normal 98-107 Moun [facility] CO2 [Moles/Vol] 29 mmol/L Normal 21-32 [facility] Creatinine [Mass/Vol] 1.09 mg/dL High 0.55-1.02 Arin nt [facility] Glucose [Mass/Vol] 93 mg/dL Normal 70-99 [facility] Potassium [Moles/Vol] 4.4 mmol/L Normal 3.5-5.1 Arin [facility] Sodium [Moles/Vol] 138 mmol/L Normal 136-145 [facility] Urea nitrogen (BldV) [Mass/Vol] 18 mg/dL Normal 7.0-18.0 [facility] Urea nitrogen/Creatinine [Mass ratio] 17 mg/mg Normal [facility] CBC W Auto Differential pane l (Bld)on 11-22-2020 Basophils (Bld) [#/Vol] 0.0 thou/mcL Normal 0.0-0.2 [facility] Basophils/100 WBC (Bld) 0.7 % Normal 0-3 [facility] Differential cell count method Nom (Bld) AUTOMATED DIFFERENTIAL Normal [facility] Eosinophils (Bld) [#/Vol] 0.2 thou/mcL Normal 0.0-0.4 [facility] Eosinophils/100 WBC (Bld) 3.5 % Normal 0-7 [facility] Erythrocyte distribution width (RBC) [Entitic vol] 14.3 % Normal 11.7-15.0 [facility] Hematocrit (Bld) [Volume fraction] 24.8 % Low 34.0-50.0 [facility] Hemoglobin (Bld) [Mass/Vol] 8.2 g/dL Low 11.5-17.0 [facility] Lymphocytes (Bld) [#/Vol] 1.1 thou/mcL Normal 0.7-4.5 [facility] Lymphocytes/100 WBC (Bld) 17.5 % Normal 14-46 [facility] MCH (RBC) [Entitic mass] 29.9 Picograms Normal 27.0-34.0 [facility] MCHC (RBC) [Mass/Vol] 33.0 g/dL Normal 32.0-36.0 [facility] MCV (RBC) [Entitic vol] 90.7 fL Normal 80-98 [facility] Monocytes (Bld) [#/Vol] 0.8 thou/mcL Normal 0.1-1.0 [facility] Monocytes/100 WBC (Bld) 13.0 % Normal 4-13 [facility] Neutrophils (Bld) [#/Vol] 4.2 thou/mcL Normal 1.5-7.8 [facility] Neutrophils/100 WBC (Bld) 65.3 % Normal 40-74 [facility] Platelet mean volume (Bld) [Entitic vol] 10.2 fL Normal 7.5-11.2 [facility] Platelets (Bld) [#/Vol] 176 thou/mcL Normal 140-415 [facility] RBC (Bld) [#/Vol] 2.74 x(10)6/mcL Low 3.80-5.60 Mo [facility] WBC (Bld) [#/Vol] 6.5 thou/mcL Normal 4.0-10.5 [facility] Coronavirus (COVID-19/SARS-C oV-2) RAPIDon 11-22-2020 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 N Normal [facility] First test N Normal [facility] ICU N [facility] Illness or injury onset date and time Normal [facility] Patient was hospitalized because of this condition Y Normal [facility] status N Normal [facility] Resides in congregate care setting N [facility] SARS-CoV-2 (COVID-19) RNA REBECCA+probe Ql (Resp) Not detected Normal NDET [facility] Comment on above: Result Comment: This test was performed via the Med ePad ID NOW COVID 19 assay and has been authorized by FDA under an Emergency Use Authorization (EUA). The assay is validated for nasopharyngeal (BENCH WORKER APPRENTICE), nasal, and oropharyngeal (OP) direct swabs. The limit of detection of the assay is approximately 125 genome equivalence/mL, however, detection of SARS-CoV-2 may be affected by the sample collection and transport methods, patient factors (e.g.,presence of symptoms, and-or stage of infection), and a negative result does not rule out the possibility of infection. For updated information, refer to the Center for Disease Control website: www.cdc.gov/coronavirus. Called to Jacquelyn Lesvia 11/22/20 [facility] Symptomatic as defined by CDC N Normal [facility] OR Nursingon 11-22-2020 OR Nursing Normal [facility] PT Coag (PPP) [Time]on 11-22 INR Coag (Bld) [Relative time] 1.4 {INR} Normal [facility] Comment on above: Result Comment: DHARMESHYash NG THE INDUCTION PHASE OF ORAL ANTICOAGULATION, THE INR MAY NOT REFLECT THE ANTICOAGULANT STATUS OF THE PATIENT. THERAPEUTIC RANGES FOR INR'S ARE: MOST CLINICAL SITUATIONS: INR 2.0-3.0 MECHANICAL PROSTHETIC VALVES: INR 2.5-3.5 CRITICAL: INR 5.0 Patient Summaryon 11-22-2020 Patient Summary PATIENT DISCHARGE INSTRUCTIONS If you are having an emergency and are not able to reach your physician, CALL 911 or go to the nearest emergency room and take this document with you. [facility] 11/22/20 14:48 [address] [place]. [address] PATIENT INFORMATION Name: TRINITY GODINEZ Address: [address] [place] [id number] Age: 65 Years Phone: [phone] : 1955 12:00 MRN: [id number] Sex: Female Race: White Ethnicity: Not Hispan/Lat Admitted From: Clinic or [facility] Medical Service: Orthopedic Surgery Nurse Unit/Bed: (CO) 2N 0221-01 Admit Date: 11/19/2020 09:38 PCP: Levi Shine MD PHYSICIANS INVOLVED WITH CARE ------ Attending Physicians: Ming Quinn MD , Calos - Orthopaedic Surg Admitting Physician: Ming Quinn MD , Calos - Orthopaedic Surg Primary Care Physician:Levi Shine MD,[facility], - Consults: Shailesh VEGA , Grabiel Maciel - Infectious Disease Andrew VEGA , Jose E - Internal Medicine Mario VEGA , Trey E - Internal Medicine Heather, CHAVO - Internal Medicine Angeles VEGA , [place] W - Internal Medicine FOLLOW-UP APPOINTMENTS: Provider: Specialty: Address: Date: Calos Smith Jr, MD Orthopaedic Surg [address] [facility] [address] [facility] [phone] (1) Three Weeks Comment: Call for an Appointment AND ANY QUESTIONS OR CONCERNS Provider: Specialty: Address: Date: Grabiel Hicks MD Infectious Disease [address] [id number] (1) Call for an Appointment Comment: 1) call soon for an appointment with Dr. Hicks in 4-5 weeks, 2) you will be on IV antibiotic until the time of your reimplantation, 3) every Sunday the nursing staff will collect blood work (CBC,SR,CRP,Creat, Vanco Trough) and fax to Dr. Hicks ([phone]), 4) call sooner for fever, chills, nausea, vomiting, diarrhea, rash, pain in your PICC arm or worsening condtion of your wound. Provider: Specialty: Address: Date: Levi Shine MD Family Practice [address] [phone] (1) Follow-up as needed Provider: Specialty: Address: Date: [facility] Follow-up as needed Comment: [place] [facility] [phone] ALLERGIES: NSAIDs : Reaction:Anaphylactic reaction Ancef : Reaction:Anaphylactic reaction morphine : Reaction:Hives : Itching MEASUREMENTS: Last Charted: Weight: 99.00 kg /218 lbs 4 oz ( 11/19/20 10:55:00 ) MEDICATIONS For: SHARP, TRINITY S This is your list of medication(s). Keep it with you at all times. Your doctor may have changed doses, add, held or stopped some of your medications. Please share this information with your family doctor. Carry this list of medications with you in case of an emergency. Update it when medications are stopped, doses are changed, or new medications (including jauz-sxx-rjcjgzy products) are added. Ask your doctor if you have any questions. THESE ARE THE MEDICATIONS YOU SHOULD BE TAKING aclidinium (Tudorza Pressair 400 mcg/inh inhalation powder) 1 Puff(s) Inhalation once a day. am. albuterol (Ventolin HFA 90 mcg/Puff MDI) 2 Puff(s) Inhalation every 6 hours as needed Shortness of Breath. ascorbic acid (Vitamin C 1000 mg oral tablet) 1 Tab(s) By Mouth once a day. am. NOTES TO PATIENT: resume after follow up with surgeon diazePAM (diazePAM 2 mg oral tablet) 1 Tab(s) By Mouth Twice a day. Freetext Medication (Dr. Hicks's Orders:) 1)Picc Care 2)Qmon CBC,SR,Creat,CRP, Vanco Trough, fax to Dr. Hicks [phone] 3)IV ATB UNTIL reimplant 4)Call Dr. Hicks for F/C/S, N/V/D, rash, 5)F/U with Dr Hicks in 4-5 weeks. Refills: 0., Call Dr. Hicks if released from your facility before IV therapy completed; Notify Dr. Hicks if Patient is admitted to the hospital. Freetext Medication (NEW PRESCRIPTIONS) NEW PRESCRIPTIONS TRAMADOL OXYCODONE. gabapentin (gabapentin 300 mg oral capsule) 2 Capsule By Mouth Twice a day. hydroCHLOROthiazide (hydroCHLOROthiazide 25 mg oral tablet) 1 Tab(s) By Mouth once a day. am. hyoscyamine (hyoscyamine 0.125 mg sublingual tablet) 1 Tab(s) Under the Tongue 4 Times/Day as needed gi upset. isosorbide mononitrate (isosorbide mononitrate 60 mg oral tablet, extended release) 1 Tab(s) By Mouth once a day. am. metoprolol (Metoprolol Succinate ER 100 mg oral tablet, extended release) 1 Tab(s) By Mouth once a day. am., Beta-B' pantoprazole (pantoprazole 40 mg oral enteric coated tablet) 1 Tab(s) By Mouth once a day. am. potassium chloride (Klor-Con M10 10 mEq oral tablet, extended release) 1 Tab(s) By Mouth Twice a day. promethazine (promethazine 25 mg oral tablet) 1 Tab(s) By Mouth as needed nausea. every 4 to 6 hours. sucralfate (sucralfate 1 gm oral tablet) 1 Tab(s) By Mouth before Meals and at Bedtime. temazepam (temazepam 30 mg oral capsule) 1 Capsule By Mouth Bedtime as needed Insomnia/Sleep. T (more content not included)... Normal [facility] Prothrombin Timeon PT Coag (PPP) [Time] 16.9 s High 11.9-14.6 Moun t [facility] Vancomycin [Moles/Vol]on Vancomycin random [Mass/Vol] 28.3 ZZ Normal 10.0-50.0 [facility] Basic metabolic 2000 panelon 11-21-2020 Calcium [Mass/Vol] 8.2 mg/dL Low 8.5-10.6 [facility] Chloride [Moles/Vol] 106 mmol/L Normal 98-107 Moun t [facility] CO2 [Moles/Vol] 29 mmol/L Normal 21-32 [facility] Creatinine [Mass/Vol] 1.07 mg/dL High 0.55-1.02 Arin nt [facility] Glucose [Mass/Vol] 94 mg/dL Normal 70-99 [facility] Potassium [Moles/Vol] 4.3 mmol/L Normal 3.5-5.1 [facility] Sodium [Moles/Vol] 141 mmol/L Normal 136-145 [facility] Urea nitrogen (BldV) [Mass/Vol] 18 mg/dL Normal 7.0-18.0 [facility] Urea nitrogen/Creatinine [Mass ratio] 17 mg/mg Normal [facility] CBC W Auto Differential pane l (Bld)on 11-21-2020 Basophils (Bld) [#/Vol] 0.0 thou/mcL Normal 0.0-0.2 [facility] Basophils/100 WBC (Bld) 0.7 % Normal 0-3 [facility] Differential cell count method Nom (Bld) AUTOMATED DIFFERENTIAL Normal [facility] Eosinophils (Bld) [#/Vol] 0.1 thou/mcL Normal 0.0-0.4 [facility] Eosinophils/100 WBC (Bld) 1.6 % Normal 0-7 [facility] Lymphocytes (Bld) [#/Vol] 1.3 thou/mcL Normal 0.7-4.5 [facility] Lymphocytes/100 WBC (Bld) 18.7 % Normal 14-46 [facility] Monocytes (Bld) [#/Vol] 0.8 thou/mcL Normal 0.1-1.0 [facility] Monocytes/100 WBC (Bld) 12.1 % Normal 4-13 [facility] Neutrophils (Bld) [#/Vol] 4.6 thou/mcL Normal 1.5-7.8 [facility] Neutrophils/100 WBC (Bld) 66.9 % Normal 40-74 [facility] Erythrocyte distribution width (RBC) [Entitic vol] 14.6 % Normal 11.7-15.0 [facility] Hematocrit (Bld) [Volume fraction] 25.9 % Low 34.0-50.0 [facility] Hemoglobin (Bld) [Mass/Vol] 8.5 g/dL Low 11.5-17.0 [facility] MCH (RBC) [Entitic mass] 29.8 Picograms Normal 27.0-34.0 [facility] MCHC (RBC) [Mass/Vol] 32.8 g/dL Normal 32.0-36.0 [facility] MCV (RBC) [Entitic vol] 90.9 fL Normal 80-98 [facility] Platelet mean volume (Bld) [Entitic vol] 9.9 fL Normal 7.5-11.2 [facility] Platelets (Bld) [#/Vol] 181 thou/mcL Normal 140-415 [facility] RBC (Bld) [#/Vol] 2.85 x(10)6/mcL Low 3.80-5.60 Mo [facility] WBC (Bld) [#/Vol] 7.0 thou/mcL Normal 4.0-10.5 [facility] PT Coag (PPP) [Time]on 11-21 INR Coag (Bld) [Relative time] 1.4 {INR} Normal [facility] Comment on above: Result Comment: NOEMÍ GOMEZ THE INDUCTION PHASE OF ORAL ANTICOAGULATION, THE INR MAY NOT REFLECT THE ANTICOAGULANT STATUS OF THE PATIENT. THERAPEUTIC RANGES FOR INR'S ARE: MOST CLINICAL SITUATIONS: INR 2.0-3.0 MECHANICAL PROSTHETIC VALVES: INR 2.5-3.5 CRITICAL: INR 5.0 Prothrombin Timeon PT Coag (PPP) [Time] 17.1 s High 11.9-14.6 Moun [facility] Basic metabolic 2000 panelon 11-20-2020 Calcium [Mass/Vol] 8.3 mg/dL Low 8.5-10.6 [facility] Chloride [Moles/Vol] 104 mmol/L Normal 98-107 Moun [facility] CO2 [Moles/Vol] 24 mmol/L Normal 21-32 [facility] Creatinine [Mass/Vol] 0.97 mg/dL Normal 0.55-1.02 [facility] Glucose [Mass/Vol] 126 mg/dL High 70-99 [facility] Potassium [Moles/Vol] 4.4 mmol/L Normal 3.5-5.1 [facility] Sodium [Moles/Vol] 139 mmol/L Normal 136-145 [facility] Urea nitrogen (BldV) [Mass/Vol] 18 mg/dL Normal 7.0-18.0 [facility] Urea nitrogen/Creatinine [Mass ratio] 19 mg/mg Normal [facility] CBC W Auto Differential pane l (Bld)on 11-20-2020 Basophils (Bld) [#/Vol] 0.0 thou/mcL Normal 0.0-0.2 [facility] Basophils/100 WBC (Bld) 0.2 % Normal 0-3 [facility] Differential cell count method Nom (Bld) AUTOMATED DIFFERENTIAL Normal [facility] Eosinophils (Bld) [#/Vol] 0.0 thou/mcL Normal 0.0-0.4 [facility] Eosinophils/100 WBC (Bld) 0.0 % Normal 0-7 [facility] Lymphocytes (Bld) [#/Vol] 0.9 thou/mcL Normal 0.7-4.5 [facility] Lymphocytes/100 WBC (Bld) 9.1 % Low 14-46 [facility] Monocytes (Bld) [#/Vol] 0.9 thou/mcL Normal 0.1-1.0 [facility] Monocytes/100 WBC (Bld) 9.2 % Normal 4-13 [facility] Neutrophils (Bld) [#/Vol] 7.8 thou/mcL Normal 1.5-7.8 [facility] Neutrophils/100 WBC (Bld) 81.5 % High 40-74 [facility] Erythrocyte distribution width (RBC) [Entitic vol] 14.7 % Normal 11.7-15.0 [facility] Hematocrit (Bld) [Volume fraction] 30.7 % Low 34.0-50.0 [facility] Hemoglobin (Bld) [Mass/Vol] 10.2 g/dL Low 11.5-17.0 [facility] MCH (RBC) [Entitic mass] 30.3 Picograms Normal 27.0-34.0 [facility] MCHC (RBC) [Mass/Vol] 33.3 g/dL Normal 32.0-36.0 [facility] MCV (RBC) [Entitic vol] 90.9 fL Normal 80-98 [facility] Platelet mean volume (Bld) [Entitic vol] 11.1 fL Normal 7.5-11.2 [facility] Platelets (Bld) [#/Vol] 246 thou/mcL Normal 140-415 [facility] RBC (Bld) [#/Vol] 3.38 x(10)6/mcL Low 3.80-5.60 [facility] WBC (Bld) [#/Vol] 9.5 thou/mcL Normal 4.0-10.5 [facility] PT Coag (PPP) [Time]on 11-20 INR Coag (Bld) [Relative time] 1.0 {INR} Normal [facility] Comment on above: Result Comment: NOEMÍ GOMEZ THE INDUCTION PHASE OF ORAL ANTICOAGULATION, THE INR MAY NOT REFLECT THE ANTICOAGULANT STATUS OF THE PATIENT. THERAPEUTIC RANGES FOR INR'S ARE: MOST CLINICAL SITUATIONS: INR 2.0-3.0 MECHANICAL PROSTHETIC VALVES: INR 2.5-3.5 CRITICAL: INR 5.0 Prothrombin Timeon PT Coag (PPP) [Time] 13.6 s Normal 11.9-14.6 Moun [facility] Anesthesia Recordon 11-20-19 Anesthesia Record Patient: TRINITY GODINEZ MRN: ([id number] Age: 65 years Sex: Female : 1955 Associated Diagnoses: None Author: Angel Wyatt MD Procedure Time Out [place] Protocol: patient identity verified, site verified, side verified, procedure to be done verified, patient position verified. REGIONAL ANESTHESIA PROCEDURE Procedure date and begin time: Peripheral nerve block. Procedure date and end time: See nursing notes. Performed by: Angel Wyatt MD. Assisted by: no technical staff assistant. Informed consent: signed by patient. Technique: Peripheral nerve blockade technique performed. Medications-Sedation: midazolam 2 mg IV. Local Anesthesia: 1% lidocaine. Indication for Peripheral Nerve Block: post operative management of pain, post: R knee radical debridement, Surgeon requests block for post op pain control. Preparation for Peripheral Nerve Block: The skin was prepped with chlorhexidine in the usual fashion, sterile technique followed, including: drape, cap, hand washing, gloves, and mask., supplemental oxygen provided: 2 L/min. PERIPHERAL NERVE BLOCKADE Adductor Canal Block: right. Ultrasound guidance to monitor safe spread of local anesthesia. Needle(s): 4 inches, 21 gauge. Injectate: ropivacaine (concentration 0.5 %, volume 25 mL). Narrative: ultrasound with tip visualized throughout, paresthesia: none, injection was made incrementally with constant monitoring and aspiration every 3 mLs., blood aspirated none, pain on injection noted none, resistance on injection normal, carlton-neural local anesthesia spread continously visualized with ultrasound. Monitored during procedure: Heart rhythm, Blood Pressure, Non-invasive blood pressure, Pulse oximetry. Procedure tolerated: well. Complications: none. Procedure done in: holding area. Findings-Comments: Pt tolerated procedure well. Estimated Blood Loss: minimal less than 10mL. Specimen(s) obtained: none. Impression and Plan Diagnosis and Plan: Diagnosis Preoperative Diagnosis: Postoperative Diagnosis: . Normal [facility] Culture Aerobicon 11-19-2020 Bacteria identified Aer cx Nom (Unsp spec) FORMERLY NAMED [facility] Microbiology PROCEDURE: Culture Aerobic SOURCE: Tissue BODY SITE: COLLECTED DATE/TIME: 11/19/2020 13:59 EDT RECEIVED DATE/TIME: 11/19/2020 13:59 EDT START DATE/TIME: 11/19/2020 13:59 EDT FREE TEXT SOURCE: TISSUE-LT KNEE D INTERFACED REPORTS Final Report [] Verified Date/Time/Personnel: 11/22/2020 11:59 EDT CONTRIBUTOR_SYSTEM, CO_PN NO GROWTH AFTER 72 HOURS Preliminary Report [] Verified Date/Time/Personnel: 11/21/2020 11:24 EDT CONTRIBUTOR_SYSTEM, CO_PN NO GROWTH AFTER 48 HOURS FINAL TO FOLLOW Preliminary Report [] Verified Date/Time/Personnel: 11/20/2020 13:13 EDT CONTRIBUTOR_SYSTEM, CO_PN NO GROWTH AT 12-24 HOURS Gram Stain [] Verified Date/Time/Personnel: 11/20/2020 01:19 EDT CONTRIBUTOR_SYSTEM, CO_PN NO POLYS SEEN, NO EPITHELIALS SEEN, NO ORGANISMS SEEN Normal [facility] Comment on above: Performed By: #### 6 34-6 ####[address] Bacteria identified Aer cx Nom (Unsp spec) FORMERLY NAMED [facility] Microbiology PROCEDURE: Culture Aerobic SOURCE: Tissue BODY SITE: COLLECTED DATE/TIME: 11/19/2020 13:58 EDT RECEIVED DATE/TIME: 11/19/2020 13:58 EDT START DATE/TIME: 11/19/2020 13:58 EDT FREE TEXT SOURCE: TISSUE-LT KNEE C INTERFACED REPORTS Final Report [] Verified Date/Time/Personnel: 11/22/2020 11:58 EDT CONTRIBUTOR_SYSTEM, CO_PN NO GROWTH AFTER 72 HOURS Preliminary Report [] Verified Date/Time/Personnel: 11/21/2020 11:25 EDT CONTRIBUTOR_SYSTEM, CO_PN NO GROWTH AFTER 48 HOURS FINAL TO FOLLOW Preliminary Report [] Verified Date/Time/Personnel: 11/20/2020 13:13 EDT CONTRIBUTOR_SYSTEM, CO_PN NO GROWTH AT 12-24 HOURS Gram Stain [] Verified Date/Time/Personnel: 11/20/2020 01:16 EDT CONTRIBUTOR_SYSTEM, CO_PN RARE POLYS RARE EPIS NO ORGANISMS SEEN Normal [facility] Comment on above: Performed By: #### 6 34-6 ####[address] Bacteria identified Aer cx Nom (Unsp spec) FORMER[facility] NAMED [facility] Microbiology PROCEDURE: Culture Aerobic SOURCE: Tissue BODY SITE: COLLECTED DATE/TIME: 11/19/2020 13:57 EDT RECEIVED DATE/TIME: 11/19/2020 13:57 EDT START DATE/TIME: 11/19/2020 13:57 EDT FREE TEXT SOURCE: TISSUE-LT KNEE B INTERFACED REPORTS Final Report [] Verified Date/Time/Personnel: 11/22/2020 11:58 EDT CONTRIBUTOR_SYSTEM, CO_PN NO GROWTH AFTER 72 HOURS Preliminary Report [] Verified Date/Time/Personnel: 11/21/2020 11:23 EDT CONTRIBUTOR_SYSTEM, CO_PN NO GROWTH AFTER 48 HOURS FINAL TO FOLLOW Preliminary Report [] Verified Date/Time/Personnel: 11/20/2020 13:14 EDT CONTRIBUTOR_SYSTEM, CO_PN NO GROWTH AT 12-24 HOURS Gram Stain [] Verified Date/Time/Personnel: 11/20/2020 01:17 EDT CONTRIBUTOR_SYSTEM, CO_PN RARE POLYS No Epithelials NO ORGANISMS SEEN Normal [facility] Comment on above: Performed By: #### 6 34-6 ####[address] Bacteria identified Aer cx Nom (Unsp spec) FORMER[facility] NAMED [facility] Microbiology PROCEDURE: Culture Aerobic SOURCE: Tissue BODY SITE: COLLECTED DATE/TIME: 11/19/2020 13:56 EDT RECEIVED DATE/TIME: 11/19/2020 13:56 EDT START DATE/TIME: 11/19/2020 13:56 EDT FREE TEXT SOURCE: TISSUE-LT KNEE A INTERFACED REPORTS Final Report [] Verified Date/Time/Personnel: 11/22/2020 11:58 EDT CONTRIBUTOR_SYSTEM, CO_PN NO GROWTH AFTER 72 HOURS Preliminary Report [] Verified Date/Time/Personnel: 11/21/2020 11:24 EDT CONTRIBUTOR_SYSTEM, CO_PN NO GROWTH AFTER 48 HOURS FINAL TO FOLLOW Preliminary Report [] Verified Date/Time/Personnel: 11/20/2020 13:14 EDT CONTRIBUTOR_SYSTEM, CO_PN NO GROWTH AT 12-24 HOURS Gram Stain [] Verified Date/Time/Personnel: 11/20/2020 01:18 EDT CONTRIBUTOR_SYSTEM, CO_PN RARE POLYS No Epithelials NO ORGANISMS SEEN Normal [facility] Comment on above: Performed By: #### 6 34-6 ####[address] Culture Anaerobicon 11-20-19 Bacteria identified Anaer cx Nom (Unsp spec) FORMER[facility] NAMED [facility] Microbiology PROCEDURE: Culture Anaerobic SOURCE: Tissue BODY SITE: COLLECTED DATE/TIME: 11/19/2020 13:59 EDT RECEIVED DATE/TIME: 11/19/2020 13:59 EDT START DATE/TIME: 11/19/2020 13:59 EDT FREE TEXT SOURCE: TISSUE-LT KNEE D INTERFACED REPORTS Final Report [] Verified Date/Time/Personnel: 11/23/2020 11:02 EDT CONTRIBUTOR_SYSTEM, CO_PN NO ANAEROBES ISOLATED AFTER 4 DAYS. Preliminary Report [] Verified Date/Time/Personnel: 11/21/2020 11:32 EDT CONTRIBUTOR_SYSTEM, CO_PN NO ANAEROBES ISOLATED AFTER 48 HOURS, CULTURE WILL BE HELD FOR 4 DAYS. Preliminary Report [] Verified Date/Time/Personnel: 11/19/2020 20:36 EDT CONTRIBUTOR_SYSTEM, CO_PN CULTURE IN PROGRESS Normal [facility] Comment on above: Performed By: #### 6 35-3 ####[address] Bacteria identified Anaer cx Nom (Unsp spec) [facility]MER[facility] NAMED [facility] Microbiology PROCEDURE: Culture Anaerobic SOURCE: Tissue BODY SITE: COLLECTED DATE/TIME: 11/19/2020 13:58 EDT RECEIVED DATE/TIME: 11/19/2020 13:58 EDT START DATE/TIME: 11/19/2020 13:58 EDT FREE TEXT SOURCE: TISSUE-LT KNEE C INTERFACED REPORTS Final Report [] Verified Date/Time/Personnel: 11/23/2020 11:02 EDT CONTRIBUTOR_SYSTEM, CO_PN NO ANAEROBES ISOLATED AFTER 4 DAYS. Preliminary Report [] Verified Date/Time/Personnel: 11/21/2020 11:33 EDT CONTRIBUTOR_SYSTEM, CO_PN NO ANAEROBES ISOLATED AFTER 48 HOURS, CULTURE WILL BE HELD FOR 4 DAYS. Preliminary Report [] Verified Date/Time/Personnel: 11/19/2020 20:36 EDT CONTRIBUTOR_SYSTEM, CO_PN CULTURE IN PROGRESS [facility] Comment on above: Performed By: #### 6 35-3 ####[address] Bacteria identified Anaer cx Nom (Unsp spec) FORMER[facility] NAMED [facility] Microbiology PROCEDURE: Culture Anaerobic SOURCE: Tissue BODY SITE: COLLECTED DATE/TIME: 11/19/2020 13:57 EDT RECEIVED DATE/TIME: 11/19/2020 13:57 EDT START DATE/TIME: 11/19/2020 13:57 EDT FREE TEXT SOURCE: TISSUE-LT KNEE B INTERFACED REPORTS Final Report [] Verified Date/Time/Personnel: 11/23/2020 11:03 EDT CONTRIBUTOR_SYSTEM, CO_PN NO ANAEROBES ISOLATED AFTER 4 DAYS. Preliminary Report [] Verified Date/Time/Personnel: 11/21/2020 11:32 EDT CONTRIBUTOR_SYSTEM, CO_PN NO ANAEROBES ISOLATED AFTER 48 HOURS, CULTURE WILL BE HELD FOR 4 DAYS. Preliminary Report [] Verified Date/Time/Personnel: 11/19/2020 20:36 EDT CONTRIBUTOR_SYSTEM, CO_PN CULTURE IN PROGRESS [facility] Comment on above: Performed By: #### 6 35-3 ####[address] Bacteria identified Anaer cx Nom (Unsp spec) FORMERLY NAMED [facility] Microbiology PROCEDURE: Culture Anaerobic SOURCE: Tissue BODY SITE: COLLECTED DATE/TIME: 11/19/2020 13:56 EDT RECEIVED DATE/TIME: 11/19/2020 13:56 EDT START DATE/TIME: 11/19/2020 13:56 EDT FREE TEXT SOURCE: TISSUE-LT KNEE A INTERFACED REPORTS Final Report [] Verified Date/Time/Personnel: 11/23/2020 11:03 EDT CONTRIBUTOR_SYSTEM, CO_PN NO ANAEROBES ISOLATED AFTER 4 DAYS. Preliminary Report [] Verified Date/Time/Personnel: 11/21/2020 11:32 EDT CONTRIBUTOR_SYSTEM, CO_PN NO ANAEROBES ISOLATED AFTER 48 HOURS, CULTURE WILL BE HELD FOR 4 DAYS. Preliminary Report [] Verified Date/Time/Personnel: 11/19/2020 20:36 EDT CONTRIBUTOR_SYSTEM, CO_PN CULTURE IN PROGRESS [facility] Comment on above: Performed By: #### 6 35-3 ####[facility] [address], [place] Culture Funguson 11-19-2020 Fungus identified Cx Nom (Unsp spec) FORMERLY NAMED [facility] Microbiology PROCEDURE: Culture Fungus SOURCE: Tissue BODY SITE: COLLECTED DATE/TIME: 11/19/2020 13:59 EDT RECEIVED DATE/TIME: 11/19/2020 13:59 EDT START DATE/TIME: 11/19/2020 13:59 EDT FREE TEXT SOURCE: TISSUE-LT KNEE D INTERFACED REPORTS Final Report [] Verified Date/Time/Personnel: 12/17/2020 09:01 EDT CONTRIBUTOR_SYSTEM, CO_PN NO FUNGUS GROWN AFTER 4 WEEKS Preliminary Report [] Verified Date/Time/Personnel: 11/19/2020 20:38 EDT CONTRIBUTOR_SYSTEM, CO_PN CULTURE IN PROGRESS CULTURE WILL BE UPDATED IF A FUNGUS (INCLUDING YEAST) IS GROWN. CULTURE WILL BE HELD FOR 1-4 WEEKS [facility] Comment on above: Performed By: #### 5 80-1 ####[address] Fungus identified Cx Nom (Unsp spec) FORMERLY NAMED [facility] Microbiology PROCEDURE: Culture Fungus SOURCE: Tissue BODY SITE: COLLECTED DATE/TIME: 11/19/2020 13:58 EDT RECEIVED DATE/TIME: 11/19/2020 13:58 EDT START DATE/TIME: 11/19/2020 13:58 EDT FREE TEXT SOURCE: TISSUE-LT KNEE C INTERFACED REPORTS Final Report [] Verified Date/Time/Personnel: 12/17/2020 09:01 EDT CONTRIBUTOR_SYSTEM, CO_PN NO FUNGUS GROWN AFTER 4 WEEKS Preliminary Report [] Verified Date/Time/Personnel: 11/19/2020 20:37 EDT CONTRIBUTOR_SYSTEM, CO_PN CULTURE IN PROGRESS CULTURE WILL BE UPDATED IF A FUNGUS (INCLUDING YEAST) IS GROWN. CULTURE WILL BE HELD FOR 1-4 WEEKS [facility] Comment on above: Performed By: #### 5 80-1 ####[address] Fungus identified Cx Nom (Unsp spec) FORMERLY NAMED [facility] Microbiology PROCEDURE: Culture Fungus SOURCE: Tissue BODY SITE: COLLECTED DATE/TIME: 11/19/2020 13:57 EDT RECEIVED DATE/TIME: 11/19/2020 13:57 EDT START DATE/TIME: 11/19/2020 13:57 EDT FREE TEXT SOURCE: TISSUE-LT KNEE B INTERFACED REPORTS Final Report [] Verified Date/Time/Personnel: 12/17/2020 09:01 EDT CONTRIBUTOR_SYSTEM, CO_PN NO FUNGUS GROWN AFTER 4 WEEKS Preliminary Report [] Verified Date/Time/Personnel: 11/19/2020 20:37 EDT CONTRIBUTOR_SYSTEM, CO_PN CULTURE IN PROGRESS CULTURE WILL BE UPDATED IF A FUNGUS (INCLUDING YEAST) IS GROWN. CULTURE WILL BE HELD FOR 1-4 WEEKS [facility] Comment on above: Performed By: #### 5 80-1 ####[address] Fungus identified Cx Nom (Unsp spec) FORMERLY NAMED [facility] Microbiology PROCEDURE: Culture Fungus SOURCE: Tissue BODY SITE: COLLECTED DATE/TIME: 11/19/2020 13:56 EDT RECEIVED DATE/TIME: 11/19/2020 13:56 EDT START DATE/TIME: 11/19/2020 13:56 EDT FREE TEXT SOURCE: TISSUE-LT KNEE A INTERFACED REPORTS Final Report [] Verified Date/Time/Personnel: 12/17/2020 09:01 EDT CONTRIBUTOR_SYSTEM, CO_PN NO FUNGUS GROWN AFTER 4 WEEKS Preliminary Report [] Verified Date/Time/Personnel: 11/19/2020 20:38 EDT CONTRIBUTOR_SYSTEM, CO_PN CULTURE IN PROGRESS CULTURE WILL BE UPDATED IF A FUNGUS (INCLUDING YEAST) IS GROWN. CULTURE WILL BE HELD FOR 1-4 WEEKS Normal [facility] Comment on above: Performed By: #### 5 80-1 ####[facility] [address], [place] PACU I Nursingon 11-19-2020 PACU I Nursing CO NA PACU I Nursing Record Summary Primary Physician: Calos Smith Jr, MD Finalized Date/Time: 11/19/20 18:19:26 Pt. Name: TRINITY GODINEZ/Sex: 1955 Female Med Rec #: [id number] Physician: Calos Smith Jr, MD Financial #: [id number] Pt. Type: I Room/Bed: / Admit/Disch: 11/19/20 09:38:00 - Institution: [facility] NA OR Main PACU I Case Times Entry 1 In PACU I 11/19/20 15:56:00 Ready for PACU I 11/19/20 16:47:00 Discharge Discharge from PACU 11/19/20 18:17:00 PACU I Discharge Bed unavailable I Delay Reason Last Modified By: Teresita Franco RN 11/19/20 18:18:58 CO NA OR Main PACU I Case Attendees Entry 1 Case Attendee Teresita Franco RN Role Performed RN Last Modified By: Teresita Franco RN 11/19/20 15:47:21 Finalized By: Teresita Franco RN Document Signatures Signed By: Teresita Franco RN 11/19/20 18:19 Normal [facility] PreOp Nursingon 11-19-2020 PreOp Nursing CO NA PreOp Nursing Record Summary Primary Physician: Calos Smith Jr, MD Finalized Date/Time: 11/19/20 13:09:57 Pt. Name: TRINITY GODINEZ/Sex: 1955 Female Med Rec #: [id number] Physician: Calos Smith Jr, MD Financial #: [id number] Pt. Type: I Room/Bed: / Admit/Disch: 11/19/20 09:38:00 - Institution: [facility] NA OR PreOp Case Times Entry 1 PreOp Case Times In Room Time 11/19/20 10:31:00 Out Room Time 11/19/20 13:08:00 Last Modified By: Cortes Mcclain RN 11/19/20 13:09:57 CO NA OR PreOp Case Attendees Entry 1 Case Attendee Maria E Mane RN Role Performed RN Last Modified By: Maria E Mane RN 11/19/20 11:17:08 Finalized By: Cortes Mcclain RN Document Signatures Signed By: Cortes Mcclain RN 11/19/20 13:09 Normal [facility] Surgical Pathology Final Rep tom 11-19-2020 Pathology study TRINITY GODINEZ [id number] YRS F [id number] / [id number] ORDERING PHYSICIAN: CALOS SMITH 00 RESULT TRANSMITTED: 11/23/20 1236 S U R G I C A L P A T H O L O G Y R E P O R T CLINICAL INFORMATION: PREOP DIAGNOSIS: Infected left knee. POSTOP DIAGNOSIS: Infected left knee. PROCEDURE: Left knee radical debridement. TISSUE REMOVED: Left knee tissue rule out perivascular lymphocytic infiltrates. GROSS DESCRIPTION: Received in formalin, labeled with the patient's name and left knee tissue, is a 4 x 3 x 1 cm aggregate of multiple fragments of rogers-pink, ragged soft tissue. Upon sectioning, the cut surface is rogers-pink, soft and homogeneous. Hot Dip Plating Supervisor sections are submitted in block (A1). (RS/1C/MS/RT) Gross examination was performed at [facility]. AJB:ASPEN 11/22/20 By: LICHA ZEPEDA M.D. (Electronic Signature) MICROSCOPIC: The technical component was performed at [facility], [address] [place] [address]. Microscopic examination was performed. Case resulted at [facility]. 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 NOTE: There is no significant perivascular lymphocytic inflammation. JH2:JH2:JH208 END OF REPORT END OF REPORT Normal [facility] XR Knee 1-2 Views LTon 11-19 XR Knee - left 1 or 2 Views EXAMINATION TYPE: XR Knee 1-2 Views LT DATE OF EXAM : 11/19/2020 4:24 PM HISTORY: Other-, left knee debridement COMPARISON: NONE FINDINGS/IMPRESSION: A femoral prosthesis is in near-anatomic alignment. A proximal tibial spacer is present. No fractures or dislocations. Postoperative air within the joint and subcutaneous tissues. A surgical drain is present. Anterior skin elvira are noted. [place] thanks you for the opportunity to care for your patient. Workstation ID: [id number] FINAL REPORT Dictated By: Abdias Morejon MD 11/19/2020 16:54 Assigned Physician: Abdias Morejon MD Reviewed and Electronically Signed By: Abdias Morejon MD 11/19/2020 16:56 Transcribed by: STEW 11/19/2020 16:54 Technologist: BASIL [facility] PreOp Nursingon 11-18-2020 PreOp Nursing CO NA PreOp Nursing Record Summary Primary Physician: Calos Smith Jr, MD Finalized Date/Time: 11/18/20 15:01:45 Pt. Name: TRINITY GODINEZO.B./Sex: 1955 Female Med Rec #: [id number] Physician: Calos Smith Jr, MD Financial #: [id number] Pt. Type: I Room/Bed: / Admit/Disch: 11/17/20 11:37:00 - Institution: [facility] NA OR PreOp Case Times Entry 1 PreOp Case Times In Room Time 11/17/20 12:19:00 Out Room Time 11/17/20 18:25:00 Last Modified By: Any Bradley RN 11/17/20 18:30:22 CO NA OR PreOp Case Attendees Entry 1 Case Attendee Chloe Fletcher RN Role Performed RN Last Modified By: Chloe Fletcher RN 11/17/20 12:42:01 Finalized By: Deisi Wu RN Document Signatures Signed By: Deisi Wu RN 11/18/20 15:01 [facility] PT Coag (PPP) [Time]on 11-17 INR Coag (Bld) [Relative time] 1.1 {INR} Normal [facility] Comment on above: Result Comment: NOEMÍ NG THE INDUCTION PHASE OF ORAL ANTICOAGULATION, THE INR MAY NOT REFLECT THE ANTICOAGULANT STATUS OF THE PATIENT. THERAPEUTIC RANGES FOR INR'S ARE: MOST CLINICAL SITUATIONS: INR 2.0-3.0 MECHANICAL PROSTHETIC VALVES: INR 2.5-3.5 CRITICAL: INR 5.0 Prothrombin Timeon PT Coag (PPP) [Time] 14.1 s Normal 11.9-14.6 Moun [facility] aPTT Coag (Bld) [Time]on aPTT Coag (PPP) [Time] 25.4 s Normal 23.2-34.6 [facility] Basic metabolic 2000 panelon 11-15-2020 Calcium [Mass/Vol] 9.7 mg/dL Normal 8.5-10.6 [facility] Chloride [Moles/Vol] 100 mmol/L Normal 98-107 Moun [facility] CO2 [Moles/Vol] 26 mmol/L Normal 21-32 [facility] Creatinine [Mass/Vol] 1.25 mg/dL High 0.55-1.02 [facility] Glucose [Mass/Vol] 79 mg/dL Normal 70-99 [facility] Potassium [Moles/Vol] 4.0 mmol/L Normal 3.5-5.1 [facility] Sodium [Moles/Vol] 137 mmol/L Normal 136-145 [facility] Urea nitrogen (BldV) [Mass/Vol] 31 mg/dL High 7.0-18.0 [facility] Urea nitrogen/Creatinine [Mass ratio] 25 mg/mg Normal [facility] Blood type and Indirect anti body screen panel (Bld)on 11-15-2020 Blood group antibody screen Ql Negative Normal NEG [facility] Rh Nom (Bld) Positive Normal [facility] C-Reactive Proteinon 021 CRP [Mass/Vol] 5.1 mg/L Normal 0.0-9.0 [facility] CBC W Auto Differential pane l (Bld)on 11-15-2020 Basophils (Bld) [#/Vol] 0.1 thou/mcL Normal 0.0-0.2 [facility] Basophils/100 WBC (Bld) 1.3 % Normal 0-3 [facility] Differential cell count method Nom (Bld) AUTOMATED DIFFERENTIAL Normal [facility] Eosinophils (Bld) [#/Vol] 0.2 thou/mcL Normal 0.0-0.4 [facility] Eosinophils/100 WBC (Bld) 2.7 % Normal 0-7 [facility] Erythrocyte distribution width (RBC) [Entitic vol] 15.2 % High 11.7-15.0 [facility] Hematocrit (Bld) [Volume fraction] 38.1 % Normal 34.0-50.0 [facility] Hemoglobin (Bld) [Mass/Vol] 12.5 g/dL Normal 11.5-17.0 [facility] Lymphocytes (Bld) [#/Vol] 1.8 thou/mcL Normal 0.7-4.5 [facility] Lymphocytes/100 WBC (Bld) 21.9 % Normal 14-46 [facility] MCH (RBC) [Entitic mass] 30.0 Picograms Normal 27.0-34.0 [facility] MCHC (RBC) [Mass/Vol] 32.9 g/dL Normal 32.0-36.0 [facility] MCV (RBC) [Entitic vol] 91.3 fL Normal 80-98 [facility] Monocytes (Bld) [#/Vol] 0.5 thou/mcL Normal 0.1-1.0 [facility] Monocytes/100 WBC (Bld) 6.6 % Normal 4-13 [facility] Neutrophils (Bld) [#/Vol] 5.5 thou/mcL Normal 1.5-7.8 [facility] Neutrophils/100 WBC (Bld) 67.5 % Normal 40-74 [facility] Platelet mean volume (Bld) [Entitic vol] 9.9 fL Normal 7.5-11.2 [facility] Platelets (Bld) [#/Vol] 314 thou/mcL Normal 140-415 [facility] RBC (Bld) [#/Vol] 4.17 x(10)6/mcL Normal 3.80-5.60 [facility] WBC (Bld) [#/Vol] 8.1 thou/mcL Normal 4.0-10.5 [facility] PT Coag (PPP) [Time]on 11-15 INR Coag (Bld) [Relative time] 1.5 {INR} Normal [facility] Comment on above: Result Comment: DURI NG THE INDUCTION PHASE OF ORAL ANTICOAGULATION, THE INR MAY NOT REFLECT THE ANTICOAGULANT STATUS OF THE PATIENT. THERAPEUTIC RANGES FOR INR'S ARE: MOST CLINICAL SITUATIONS: INR 2.0-3.0 MECHANICAL PROSTHETIC VALVES: INR 2.5-3.5 CRITICAL: INR 5.0 Prothrombin Timeon PT Coag (PPP) [Time] 17.7 s High 11.9-14.6 [facility] Sedimentation Rate rbcon ESR (Bld) [Velocity] 52 mm/h High 0-30 Moun [facility] aPTT Coag (Bld) [Time]on aPTT Coag (PPP) [Time] 27.8 s Normal 23.2-34.6 [facility] Prothrombin Time INRon 11-08 INR Coag (PPP) [Relative time] 1.4 {INR} Normal [facility] Comment on above: Result Comment: INR Therapeutic Range A) Pre- and Peroperative OAT started two weeks before surgery. NOT HIP SURGERY: 1.5 - 2.5 HIP SURGERY: 2 - 3 B) Primary and secondary prevention of venous THROMBOSIS: 2 - 3 C) Active venous thrombosis, pulmonary embolism and prevention of recurrent venous thrombosis: 2 - 3 D) Prevention of arterial thromboembolism including patients with mechanical heart valves: 3 - 4.5 PERFORMED BY: [place] [address] PATHOLOGIST TECHNICAL ADMINISTRATIVE ASSISTANT JEFFREY GEIGER M.D. Performed By: #### P T #### [facility] [address] PT Coag (PPP) [Time] 15.5 s High 9.0-12.9 [facility] Comment on above: Performed By: #### P T #### [facility] [address] [id number] [facility] Consultation Noteon 08-24-19 Consultation Note [id number]. 00CD:127 Normal [facility] Operative Reporton Operative Report [id number] .[id number]:127 Normal [facility] Pathology Noteon 08-23-2020 Pathology Note [id number] .[id number]:127 Normal [facility] Consultation Noteon 08-20-19 Consultation Note [id number] .[id number]:127 [facility] Facesheeton 08-19-2020 Facesheet [id number] .[id number]:127 [facility] Vital Signs Date Time Vital Sign Value Performing Clinician Faci lity 04-22-2022 11:44-0500 Body temperature 99.1 [degF] Calos Smith MD Work Phone: [employer] 04-22-2022 11:44-0500 Diastolic blood pressure 62 mm[Hg] Calos Smith MD Work Phone: [employer] 04-22-2022 11:44-0500 Heart rate 90 /min Calos Smith MD Work Phone: [employer] 04-22-2022 11:44-0500 Respiratory rate 12 /min Calos Smith MD Work Phone: [employer] 04-22-2022 11:44-0500 SaO2% (BldA) [Mass fraction] 92 % Calos Smith MD Work Phone: [employer] 04-22-2022 11:44-0500 Systolic blood pressure 109 mm[Hg] Calos Smith MD Work Phone: [employer] 04-20-2022 12:25-0500 Body height 172.7 cm Calos Smith MD Work Phone: [employer] 04-20-2022 12:25-0500 Body mass index (BMI) [Ratio] 27.12 kg/m2 Calos Smith MD Work Phone: [employer] 04-20-2022 12:25-0500 Body weight 80.9 kg Calos Smith MD Work Phone: [employer] 01-06-2022 10:05-0400 Diastolic blood pressure 63 mm[Hg] Calos Smith MD Work Phone: [employer] 01-06-2022 10:05-0400 Heart rate 84 /min Calos Smith MD Work Phone: [employer] 01-06-2022 10:05-0400 Systolic blood pressure 111 mm[Hg] Calos Smith MD Work Phone: [employer] 01-06-2022 07:55-0400 SaO2% (BldA) [Mass fraction] 96 % Calos Smith MD Work Phone: [employer] 01-06-2022 07:52-0400 Body temperature 97 [degF] Calos Smith MD Work Phone: [employer] 01-06-2022 04:28-0400 Respiratory rate 12 /min Calos Smith MD Work Phone: [employer] 01-03-2022 07:10-0400 Body height 172.7 cm Calos Smith MD Work Phone: [employer] 01-03-2022 07:10-0400 Body mass index (BMI) [Ratio] 27.05 kg/m2 Calos Smith MD Work Phone: [employer] 01-03-2022 07:10-0400 Body weight 80.7 kg Calos Smith MD Work Phone: [employer] 01-08-2021 09:00-0400 SaO2% (BldA) [Mass fraction] 93 % Calos Smith MD Work Phone: [employer] 01-08-2021 08:12-0400 Body temperature 97.2 [degF] Calos Smith MD Work Phone: [employer] 01-08-2021 08:12-0400 Diastolic blood pressure 83 mm[Hg] Calos Smith MD Work Phone: [employer] 01-08-2021 08:12-0400 Heart rate 76 /min Calos Smith MD Work Phone: [employer] 01-08-2021 08:12-0400 Respiratory rate 12 /min Calos Smith MD Work Phone: [employer] 01-08-2021 08:12-0400 Systolic blood pressure 125 mm[Hg] Calos Smith MD Work Phone: [employer] 01-06-2021 13:37-0400 Body height 175.3 cm Calos Smith MD Work Phone: [employer] Comment on above: Pt reported 01-06-2021 13:37-0400 Body mass index (BMI) [Ratio] 30.41 kg/m2 Calos Smith MD Work Phone: [employer] 01-06-2021 13:37-0400 Body weight 93.4 kg Calos Smith MD Work Phone: [employer] Comment on above: Actual Encounters Encounter Date Encounter Type Care Provider Facility Start: 02-19-2023 ambulatory BRITTANY WOOD [facility] Start: 08-26-2022 End: 08-30-[address] LEVI SHINE . Facility:[facility] Start: 08-25-[address] LEVI SHINE . Facili ty:[facility] Start: 08-23-2022 End: 08-23-2022 ambulatory JACKY HOWELL Facility:[facility] Start: 08-22-[address] LEVI SHINE . Facili ty:[facility] Start: 08-01-2022 End: 08-02-[address] LEVI SHINE . Facility:[facility] Start: 05-22-2022 End: 05-23-[address] LEVI SHINE . Facility:[facility] Start: 05-04-2022 ambulatory BRITTANY WOOD [facility] Start: 05-03-2022 ambulatory BRITTANY WOOD [facility] Start: 05-02-2022 ambulatory LEVI SHINE [facility] Start: 05-01-2022 ambulatory LEVI SHINE [facility] Start: 04-30-2022 [facility] Start: 04-29-2022 ambulatory [facility] Start: 04-29-2022 Encounter for [facility] adult medical examination without abnormal findings [facility] Start: 04-28-2022 ambulatory LEVI SHINE [facility] Start: 04-27-2022 ambulatory LEVI SHINE [facility] Start: 04-26-2022 ambulatory LEVI SHINE [facility] Start: 04-25-2022 ambulatory LEVI SHINE [facility] Start: 04-24-2022 ambulatory AUBERRY NINA [facility] Start: 04-23-2022 ambulatory AUBERRY NINA [facility] Start: 04-20-2022 End: 04-22-2022 Evaluation and management of inpatient LEVI SHINE [facility] Start: 04-20-2022 End: 04-22-2022 Evaluation and management of inpatient Calos Smith MD Work Phone: [facility] Comment on above: 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 Facility:[facility] Start: 02-14-[address] LEVI SHINE . Facili ty:[facility] Start: 01-31-2022 End: 03-01-2022 ambulatory SHAIKH Raheem FOWLER Facility:[facility] Start: 01-05-2022 Encounter for preprocedural laboratory examination DR LEVI SHINE . [facility] Start: 01-03-2022 End: 01-06-2022 Evaluation and management of inpatient Calos Smith MD Work Phone: [facility] Start: 01-03-2022 End: 01-06-2022 Subsequent hospital visit by physician Calos Smith MD Work Phone: [facility] Start: 01-02-2022 End: 01-03-[address] LEVI SHINE . Facility:[facility] Start: 01-02-2022 End: 01-03-2022 Encounter for preprocedural laboratory examination DR LEVI SHINE . Facility:[facility] Start: 12-31-2021 ambulatory SHAIKH Raheem DICKCONOR Facilit y:[facility] Start: 12-12-2021 End: 12-14-[address] LEVI SHINE . Facility:[facility] Start: 10-21-2021 End: 10-22-[address] LEVI SHINE . Facility:[facility] Start: 01-11-2021 ambulatory CALOS SMITH JR. Fac ility:[facility] Start: 01-03-2021 End: 01-08-2021 Evaluation and management of inpatient Calos Smith MD Work Phone: [facility] Start: 05-18-2020 End: 06-17-2020 ambulatory KARAN SULLIVAN Facility:[facility] Start: 05-12-2020 End: 05-27-2020 ambulatory KARAN SULLIVAN Facility:[facility] Procedures Date Procedure Procedure Detail Performing Clinician Start: 04-22-2022 Sars-cov-2 detection by dna/rna Simone Waddell MD Work Phone: Start: 04-22-2022 Prothrombin time Dominguez Waddell MD Work Phone: Start: 04-22-2022 Basic metabolic pane l calcium total Trey Martin MD Work Phone: Start: 04-21-2022 PULSE OXIMETRY, CONTINUOUS Trey Martin MD Work Phone: Start: 04-21-2022 Basic metabolic pane l calcium total Trey Martin MD Work Phone: Start: 04-20-2022 PULSE OXIMETRY, CONTINUOUS Trey Martin MD Work Phone: Start: 04-20-2022 PULSE OXIMETRY, CONTINUOUS Trey Martin MD Work Phone: Start: 04-20-2022 Radiologic examinati on knee 1/2 views Pramod Simpson DO Work Phone: Start: 04-20-2022 Level iv surg pathol ogy gross&microscopic exam Calos Smith MD Work Phone: Start: 04-20-2022 Cell count misc body fluids w/differential count Calos Smith MD Work Phone: Start: 04-20-2022 End: 04-20-2022 Culture bacterial any source anaerobic iso&id Calos Smith MD Work Phone: Start: 04-20-2022 DIFFERENTIAL BODY FLUID Calos Smith MD Work Phone: Start: 04-20-2022 End: 04-20-2022 REMOVAL FIXATION DEVICE INTERNAL EXTR LOWER Calos Smith MD Work Phone: Start: 04-20-2022 End: 04-20-2022 REPAIR LIGAMENT OR TENDON PATELLA Calos Smith MD Work Phone: Start: 04-20-2022 POCT GLUCOSE BLOOD Diana Smith MD Work Phone: Start: 04-20-2022 Prothrombin time Calos Smith MD Work Phone: Start: 04-05-2022 Antibody screen LEVI SHINE Comment on above: Performed By: #### 3 [id number] #### [facility] [address] [place] [address] Start: 01-05-2022 Prothrombin time Chong Hsieh MD Work Phone: Start: 01-05-2022 PULSE OXIMETRY, CONTINUOUS Chong Hsieh MD Work Phone: Start: 01-05-2022 Basic metabolic pane l calcium total Chong Hsieh MD Work Phone: Start: 01-05-2022 CBC W Auto Different ial panel - Blood Chong Hsieh MD Work Phone: Start: 01-04-2022 PULSE OXIMETRY, CONTINUOUS Chong Hsieh MD Work Phone: Start: 01-04-2022 PULSE OXIMETRY, CONTINUOUS Chong Hsieh MD Work Phone: Start: 01-04-2022 Basic metabolic pane l calcium total Chong Hsieh MD Work Phone: Start: 01-04-2022 CBC W Auto Different ial panel - Blood Chong Hsieh MD Work Phone: Start: 01-03-2022 PULSE OXIMETRY, CONTINUOUS Chong Hsieh MD Work Phone: Start: 01-03-2022 PULSE OXIMETRY, CONTINUOUS Chong Hsieh MD Work Phone: Start: 01-03-2022 End: 01-03-2022 Arthrp kne condyle&platu medial&lat compartments Calos Smith MD Work Phone: Start: 01-03-2022 POCT GLUCOSE BLOOD Diana Smith MD Work Phone: Start: 01-08-2021 Prothrombin time Calos Smith MD Work Phone: Start: 01-04-2021 XR CHEST 1 VIEW Rogelio Leyva MD Work Phone: Start: 01-03-2021 XR KNEE 1-2 VIEWS LT Ro magdiel Cates MD Work Phone: Start: 01-03-2021 Level i surg patholo gy gross examination only Calos Smith MD Work Phone: Plan of Treatment Date Care Activity Detail Author Start: 08-28-2030 DTaP,Tdap,and Td Vac cines (2 - Tdap) DTaP,Tdap,and Td Vaccines (2 - Tdap) [facility] Start: 04-22-2023 Hypertension/CHF/CAD Annual BMP Blood Test Hypertension/CHF/CAD Annual BMP Blood Test [facility] Start: 01-05-2023 Hypertension/CHF/CAD Annual BMP Blood Test Hypertension/CHF/CAD Annual BMP Blood Test [facility] Start: 12-01-2021 Influenza vaccination Influenza Vacc ine (#1) [facility] Start: 08-19-2021 COVID-19 Vaccine (4 - Booster for Pfizer series) COVID-19 Vaccine (4 - Booster for Pfizer series) [facility] Start: 01-16-2021 COVID-19 Vaccine (3 - Booster for Pfizer series) COVID-19 Vaccine (3 - Booster for Pfizer series) [facility] Start: 12-20-2020 Hypertension/CHF/CAD Annual BMP Blood Test Hypertension/CHF/CAD Annual BMP Blood Test [facility] Start: 12-15-2020 Adolescent depressio n screening assessment Depression Screening [facility] Start: 12-15-2020 Depression Screening Depression Scre ening [facility] Start: 12-15-2020 Hepatitis C screening Hepatitis C Sc reening [facility] Start: 12-15-2020 HIV screening HIV Screening [facility] Start: 12-15-2020 Lipid panel Cholesterol Sc reening (Lipid Panel) [facility] Start: 12-15-2020 Medicare Annual Well ness Visit Medicare Annual Wellness Visit [facility] Start: 12-15-2020 Screening for malign ant neoplasm of breast Breast Cancer Screening [facility] Start: 12-15-2020 Screening for malign ant neoplasm of colon Colorectal Cancer Screening: Colonoscopy [facility] Start: 12-15-2020 Screening for malign ant neoplasm of lung Lung Cancer Screening (Low Dose CT) [facility] Start: 12-15-2020 Social Influencers o f Health Screening Social Influencers of Health Screening [facility] Start: 12-01-2020 Influenza vaccination Influenza Vacc ine (#1) [facility] Start: 02-01-2016 Pneumococcal Vaccine : Pediatrics (0 to 5 Years) and At-Risk Patients (6 to 64 Years) (2 - PCV) Pneumococcal Vaccine: Pediatrics (0 to 5 Years) and At-Risk Patients (6 to 64 Years) (2 - PCV) [facility] Start: 2007 Zoster Vaccines (1 of 2) Zoster Vacc ngozi (1 of 2) [facility] Start: 1978 Screening for malign ant neoplasm of cervix Cervical Cancer Screening: Pap Smear [facility] Start: 1976 DTaP,Tdap,and Td Vac cines (1 - Tdap) DTaP,Tdap,and Td Vaccines (1 - Tdap) [facility] Start: 1957 Hepatitis B Vaccines (1 of 3 - 3-dose series) Hepatitis B Vaccines (1 of 3 - 3-dose series) [facility] Bacteria identified in Tissue by Culture Culture tissue with gram stain Microbiology Routine 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, initial encounter ([facility]) 04/20/2022 2:13 PM EST [employer] Bacteria identified in Unspecified specimen by Anaerobe culture [employer] Work Phone: Bacteria identified in Unspecified specimen by Sterile body fluid culture Culture body fluid with gram stain Microbiology Routine 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, initial encounter ([facility]) 04/20/2022 2:10 PM EST [employer] End: 01-08-2021 Communication order: Respiratory Communication order: Respiratory Respiratory Care Routine Once for 1 Occurrences starting 01/08/2021 until 01/08/2021 [employer] Comment on above: Once for 1 Occurrenc es starting 01/08/2021 until 01/08/2021 Fungus identified in Skin by Culture [employer] Incentive spirometry RT Incentiv e spirometry RT Respiratory Care Routine Daily until discontinued starting 01/08/2021 [employer] Comment on above: Daily until disconti nued starting 01/08/2021 Mycobacterium sp identified in Unspecified specimen by Organism specific culture [employer] End: 01-13-2021 Prothrombin time (PT) Prothrombin time with INR Lab Routine Daily for 6 Days starting 01/08/2021 until 01/13/2021, 1 completed [employer] Work Phone: Comment on above: Daily for 6 Days sta rting 01/08/2021 until 01/13/2021, 1 completed Immunizations Immunization Date Immunization Notes Care Provider Addie booth 02-10-2021 influenza virus vacc ine, unspecified formulation Calos Smith MD Work Phone: [facility] 01-03-2020 influenza virus vacc ine, unspecified formulation Calos Smith MD Work Phone: [facility] Payers Date Payer Category Payer Medicare MEDICARE MEDICAR E RAILROAD [id number] 2015-Present [address] [address] [place] [address] Medicare [id number] 2015 Medicare MEDICARE MEDICAR E RAILROAD [id number] 2015-Present [address] [address] [place] [address] Medicare [id number] 1959 Medicare [id number] 1959 Private Health Insurance [id number] 1955 Unknown [id number] 2.16.840.1.365920.3.579.2 .647 1957 Unknown [id number] 2.16.840.1.533999.3.579.2 .647 1957 Unknown [id number] 2.16.840.1.656240.3.579.2 .593 1957 Unknown [id number] 2.16.840.1.418285.3.579.2 .593 1957 Unknown [id number] 2.16.840.1.506762.3.579.2 .593 1957 Unknown [id number] 2.16.840.1.585494.3.579.2 .593 1957 Unknown [id number] 2.16.840.1.210094.3.579.2 .593 1957 Unknown [id number] 2.16.840.1.774125.3.579.2 .593 1957 Unknown [id number] 2.16.840.1.046324.3.579.2 .593 1957 Unknown [id number] 2.16.840.1.365150.3.579.2 .593 1957 Unknown [id number] 2.16.840.1.585768.3.579.2 .593 1957 Unknown [id number] 2.16.840.1.010079.3.579.2 .593 1957 Unknown [id number] 2.16.840.1.832396.3.579.2 .593 1957 Unknown [id number] 2.16.840.1.447591.3.579.2 .593 1957 Unknown [id number] 2.16.840.1.013838.3.579.2 .593 1957 Unknown [id number] 2.16.840.1.804002.3.579.2 .1143 1957 Unknown [id number] 2.16.840.1.401203.3.579.2 .114 1957 Unknown [id number] 2.16.840.1.580516.3.579.2 .1143 1957 Unknown [id number] 2.16.840.1.956055.3.579.2 .114 1957 Unknown [id number] 2.16.840.1.874722.3.579.2 .114 1957 Unknown [id number] 2.16.840.1.672037.3.579.2 .114 1957 Unknown [id number] 2.16.840.1.553453.3.579.2 .114 1957 Unknown [id number] 2.16.840.1.226959.3.579.2 .114 1957 Unknown [id number] 2.16.840.1.006983.3.579.2 .1143 1957 Unknown [id number] 2.16.840.1.407078.3.579.2 .1143 1957 Unknown [id number] 2.16.840.1.811892.3.579.2 .1143 Social History Date Type Detail Facility Tobacco smoking stat [facility] if [facility] smoked [facility] Start: 1955 Sex Assigned At Not on file T [facility] Start: 12-30-2021 Tobacco smoking stat [facility] Ex-smoker [facility] End: 08-31-2021 History of tobacco use Current smoker [facility] End: 08-31-2021 History of tobacco use Cigarette Smoker [facility] Start: 12-30-2021 Tobacco use and exposure Smokeless t obacco non-user [facility] Start: 01-03-2022 End: 04-20-2022 Alcohol intake Lifetime non-drinker (finding) [facility] Start: 12-24-2021 End: 04-20-2022 Exposure to SARS-CoV-2 (event) Not sure [facility] Medical Equipment Procedure Code Equipment Code Equipment Origin al Text Equipment Identifier Dates Cement Bone Biom et R 1x40 - [facility]ly [facility] - [id number] [id number])[id number], [id number] [facility] Start: 01-03-2022 Knee Tib Brg Ant Stbl [id number] - [facility] - [id number] ()[id number] [id number] 1)[id number], [id number] [facility] Start: 01-03-2022 Clinical Notes 11-17-2020 to 04-22-2022 Gautam Mane RN - 04/22/2022 10:48 AM Hamlet Agudelo, AIDAN - 04/22/2022 10:12 AM [place] Mane RN - 04/22/2022 9:48 AM [place] Mane, AIDAN - 04/22/2022 9:14 AM Nova Royal MD - 04/22/2022 9:13 AM EST Note Date & Type Note Facility 04-22-2022 History of Present illness Narrative Discharge folder placed at the nursing station. Requested information faxed. Problem: Health Behavior: Goal: Patient Specific Outcome Outcome: Progressing Goals: Identify possible barriers to meeting goals/advancing plan of care: Stability of the patient: Moderately Stable - Low risk of patient condition declining or worsening End of Shift Summary: NN met with pt at bedside. Pt states her brother will be picking her up around 12-12:30. Delroy at [facility] updated pt to arrive around 1. CARLOTA spoke with Delroy at [facility]. They can accept the pt today. No HENS needed. Pt will need a covid test [id number] Delroy will need updated with a transport time. [facility] - PROGRESS NOTE Patient Name : Trinity Godinez Patient : 1955 Patient Admit Date : 04/20/2022 Admission Diagnosis : Postoperative Medical Comanagement Provider Name : Abel Royal MD Date Of Service : 04/22/22 IMPRESSION AND PLAN : This 66 y.o. female is 2 Days Post-Op. I have seen the patient personally today and reviewed any available lab results on this patient. Admission medication reconciliation has been completed and in addition multimodal pain medications as well as as needed medications have been ordered. Status post Procedure(s): Left knee extensor mechanism realignment with lateral retinacular release REMOVAL FIXATION DEVICE INTERNAL EXTR LOWER A medical consult has been ordered by the surgeon for perioperative management of the patient's chronic medical conditions including the following . . . Chronic pain: Chronic condition by history. Prescription drug management through reordering this patient's gabapentin. Oxycodone ordered at increased dose and frequency post procedure. Pain seems well controlled this a.m. on rounds Hypertension: Chronic condition, stable postoperatively. Prescription drug management accomplished through ordering metoprolol post procedure. Blood pressure reviewed. Blood pressure within an acceptable range on medication. BP 129/71 this a.m. BP Readings from Last 3 Encounters: 04/21/22 112/66 01/06/22 111/63 01/08/21 125/83 GERD: Chronic condition, stable with prescription drug management post procedure. Carafate reordered. Thrombophilia: Chronic condition, stable by history. Patient with a pulmonary embolism from 2019. Warfarin restarted. Anxiety: Chronic condition controlled by history. Prescription drug management with reordering her venlafaxine. Anemia, acute-consistent with EBL and perioperative hemodilution. Asymptomatic and no indications for transfusion DVT prophylaxis deferred to the primary team. Recommend following the current ACCP guidelines. This patient will be considered acceptable for discharge from a medical perspective if the following criteria are met . . . 1. Oxygen Saturations > 90% on Room Air 2. Able to void without difficulty 3. Meets Physical Therapy goals for discharge 4. Passing Flatus without nausea vomiting or abdominal distention 5. Cleared for discharge by surgeon 6. Discharge medication reconciliation completed, defer post discharge management of anticoagulants, DVT prophylaxis, NSAIDs, opiates, and antibiotics to surgical service. Subjective Patient reports pain is currently tolerable; without any issues overnight. REVIEW OF SYSTEMS Cardiovascular: Denies chest pain Respiratory: Denies shortness of breath or cough Gastrointestinal: Denies abdominal pain or nausea/vomiting Genitourinary: Denies urinary retention or incomplete voiding VITALS : Visit Vitals BP 129/71 Pulse 86 Temp 37.4 C (99.3 F) (Temporal) Resp 12 Ht 1.727 m (68 ) Wt 80.9 kg (178 lb 5.6 oz) SpO2 94% BMI 27.12 kg/m Smoking Status Former BSA 1.95 m PHYSICAL EXAM : General - No acute distress; Alert and conversational Cardiology - Regular rate and rhythm no appreciated murmurs, No peripheral edema Respiratory - CTA, normal respiratory effort; no wheezing on inspiration or exhalation Abdominal - soft, still nondistended/nontender soft, nondistended Musculoskeletal - No calf tenderness noted on palpation Psychiatric - Appropriate affect, Alert and oriented to person, place, and situation RESULTS : INTAKE/OUTPUT Intake/Output Summary (Last 24 hours) at 04/22/2022 0913 Last data filed at 04/22/2022 0000 Gross per 24 hour Intake 2000 ml Output 400 ml Net 1600 ml LABS Admission on 04/20/2022 Component Date Value Protime 04/20/2022 13.4 INR 04/20/2022 1.0 aPTT 04/20/2022 22.0 (L) Glucose POCT 04/20/2022 135 (H) Culture, Anaerobic 04/20/2022 Culture in progress Culture, Fungus 04/20/2022 Culture in progress Culture AFB 04/20/2022 Culture in progress AFB Stain 04/20/2022 No acid fast bacilli seen Fluid Culture 04/20/2022 No growth at 24 hours Gram Stain Result 04/20/2022 No Polymorphonuclear leukocytes Gram Stain Result 04/20/2022 No Epithelial cells Gram Stain Result 04/20/2022 No organisms seen Body Fluid Source 04/20/2022 Synovial Body Fluid Clarity 04/20/2022 Hazy Body Fluid Color 04/20/2022 [place] Body Fluid RBC 04/20/2022 25,000 Body Fluid Total Nucleat* 04/20/2022 111 Culture, Anaerobic 04/20/2022 Culture in progress Culture, Anaerobic 04/20/2022 Culture in progress Culture, Anaerobic 04/20/2022 Culture in progress Culture, Anaerobic 04/20/2022 Culture in progress Culture, Fungus 04/20/2022 Culture in progress Culture, Fungus 04/20/2022 Culture in progress Culture, Fungus 04/20/2022 Culture in progress Culture, Fungus 04/20/2022 Culture in progress Final Diagnosis 04/20/2022 Value:This result contains rich text formatting which cannot be displayed here. Gross Description 04/20/2022 Value:This result contains rich text formatting which cannot be displayed here. Disclaimer 04/20/2022 Value:This result contains rich text formatting which cannot be displayed here. Culture AFB 04/20/2022 Culture in progress AFB Stain 04/20/2022 No acid fast bacilli seen Culture AFB 04/20/2022 Culture in progress AFB Stain 04/20/2022 No acid fast bacilli seen Culture AFB 04/20/2022 Culture in progress AFB Stain 04/20/2022 No acid fast bacilli seen Culture AFB 04/20/2022 Culture in progress AFB Stain 04/20/2022 No acid fast bacilli seen Culture, Tissue 04/20/2022 No growth at 24 hours Gram Stain Result 04/20/2022 No Polymorphonuclear leukocytes Gram Stain Result 04/20/2022 No Epithelial cells Gram Stain Result 04/20/2022 No organisms seen Culture, Tissue 04/20/2022 No growth at 24 hours Gram Stain Result 04/20/2022 No Polymorphonuclear leukocytes Gram Stain Result 04/20/2022 No Epithelial cells Gram Stain Result 04/20/2022 No organisms seen Culture, Tissue 04/20/2022 No growth at 24 hours Gram Stain Result 04/20/2022 No Polymorphonuclear leukocytes Gram Stain Result 04/20/2022 No Epithelial cells Gram Stain Result 04/20/2022 No organisms seen Culture, Tissue 04/20/2022 No growth at 24 hours Gram Stain Result 04/20/2022 No Polymorphonuclear leukocytes Gram Stain Result 04/20/2022 No Epithelial cells Gram Stain Result 04/20/2022 No organisms seen Fluid Neutrophils 04/20/2022 25.0 Fluid Lymphocytes 04/20/2022 46.0 Fluid Monocytes/Macropha* 04/20/2022 24.0 Fluid Eosinophils 04/20/2022 4.0 Fluid Lining Cells 04/20/2022 1.0 WBC 04/21/2022 13.5 (H) RBC 04/21/2022 4.11 Hemoglobin 04/21/2022 11.6 (L) Hematocrit 04/21/2022 37.0 MCV 04/21/2022 90.0 MCH 04/21/2022 28.2 MCHC 04/21/2022 31.4 RDW 04/21/2022 15.9 (H) Platelets 04/21/2022 220 MPV 04/21/2022 12.3 (H) Sodium 04/21/2022 139 Potassium 04/21/2022 4.6 Chloride 04/21/2022 108 (H) CO2 04/21/2022 22 Anion Gap 04/21/2022 9 Glucose 04/21/2022 135 (H) BUN 04/21/2022 19 Creatinine 04/21/2022 1.19 eGFR 04/21/2022 51 (L) BUN/Creatinine Ratio 04/21/2022 16.0 Calcium 04/21/2022 8.2 (L) WBC 04/22/2022 9.0 RBC 04/22/2022 3.87 Hemoglobin 04/22/2022 10.9 (L) Hematocrit 04/22/2022 35.8 MCV 04/22/2022 92.5 MCH 04/22/2022 28.2 MCHC 04/22/2022 30.4 (L) RDW 04/22/2022 16.4 (H) Platelets 04/22/2022 158 MPV 04/22/2022 12.4 (H) Sodium 04/22/2022 138 Potassium 04/22/2022 4.7 Chloride 04/22/2022 107 CO2 04/22/2022 25 Anion Gap 04/22/2022 6 Glucose 04/22/2022 104 (H) BUN 04/22/2022 24 (H) Creatinine 04/22/2022 1.06 eGFR 04/22/2022 59 (L) BUN/Creatinine Ratio 04/22/2022 22.6 (H) Calcium 04/22/2022 8.3 (L) IMAGING XR Knee 1-2 Views Left Final Result FINDINGS/IMPRESSION: Status post LEFT total knee arthroplasty revision utilizing longstem interlocking femoral and tibial components. Air within the surrounding soft tissues, surgical drain and skin elvira anteriorly, consistent with recent postoperative state. No acute fracture or dislocation is visualized. Atherosclerotic calcifications. -------- FINAL REPORT -------- Dictated By: Heriberto Saldana Dictated Date: 04/20/2022 16:06 Assigned Physician: Heriberto Saldana Reviewed and Electronically Signed By: Heriberto Saldana Signed Date: 04/20/2022 16:07 Workstation ID: [id number] Transcribed By: Self Edit Transcribed Date: 04/20/2022 16:06 Post-op Progress Note Subjective Procedure: KY RECONSTR DISLOCATING PATELLA W EXT REALIGNMENT AND/OR MUSCLE ADVMNT/RLS [83702] (Left knee extensor mechanism realignment with lateral retinacular release) KY LATERAL RETINACULAR RELEASE OPEN [23209] Interval History: Shannon Godinez, 66 y.o. female, resting and in no apparent distress. No acute events overnight. Complains of pain in the left knee. Objective Exam: Visit Vitals BP 129/71 Pulse 86 Temp 37.4 C (99.3 F) (Temporal) Resp 12 Ht 1.727 m (68 ) Wt 80.9 kg (178 lb 5.6 oz) SpO2 94% BMI 27.12 kg/m Smoking Status Former BSA 1.95 m LLE -Inspection: wound intact, no drainage -Palpation: appropriate TTP over the LLE -Sensation: SILT FN SPN DPN TN -Motor: 2/5 KE secondary to pain and effort, 5/5 DF EHL PF -Vascular: skin warm and perfused, DP palpable -Special: Jesus sign negative. LABS: Lab Results Component Value Date WBC 9.0 04/22/2022 HGB 10.9 (L) 04/22/2022 HCT 35.8 04/22/2022 MCV 92.5 04/22/2022 PLT 158 04/22/2022 Lab Results Component Value Date GLUCOSE 104 (H) 04/22/2022 CALCIUM 8.3 (L) 04/22/2022 NA 138 04/22/2022 K 4.7 04/22/2022 CO2 25 04/22/2022 CL 107 04/22/2022 BUN 24 (H) 04/22/2022 CREATININE 1.06 04/22/2022 Imaging: No new imaging was reviewed for today's encounter. Assessment/Plan: 66 y.o. female 2 Day Post-Op status post * Left knee extensor mechanism realignment with lateral retinacular release. - WBAT on the operative extremity in TROM locked in extension - Aspirin 81mg BID x 6 weeks for DVT ppx - PT - Follow-up in clinic in 2-3 weeks for staple removal and reevaluation - Plan for discharge to Subacute Rehab Facility ([facility] or [facility]) when cleared by PT and medically stable Goals: Problem: Health Behavior: Goal: Patient Specific Outcome Outcome: Progressing Problem: Sensory: Goal: Demonstrates/reports adequate pain control Outcome: Progressing Problem: Coping: Goal: Verbalizations of alleviation of anxiety will increase Outcome: Progressing Problem: Cognitive: Goal: Knowledge of disease or condition will improve Outcome: Progressing Problem: Physical Regulation: Goal: Postoperative complications will be avoided or minimized Outcome: Progressing Goal: Ability to maintain clinical measurements within normal limits will improve Outcome: Progressing Problem: Skin Integrity: Goal: Patient will remain free of injury and skin integrity maintained Outcome: Progressing Problem: Respiratory: Goal: Knowledge of LUPE (Obstructive Sleep Apnea) risk and follow-up will improve Outcome: Progressing Problem: Cognitive: Goal: Last Known Fall Outcome: Progressing Goal: Mobility requiring assistance of person or device Outcome: Progressing Goal: Dizziness Outcome: Progressing Goal: Medications Outcome: Progressing Goal: Mental Status/LOC/Awareness Outcome: Progressing Goal: Toileting Needs Outcome: Progressing Goal: Volume and Electrolyte Status Outcome: Progressing Goal: Communication/Sensory Outcome: Progressing Goal: Behavior Outcome: Progressing Identify possible barriers to meeting goals/advancing plan of care: Pain Stability of the patient: Moderately Stable - Low risk of patient condition declining or worsening End of Shift Summary: Progressing [facility]- Referral received and chart reviewed. Patient accepted by [facility]. Spoke to patient over phone and answered questions. She has been to our facility in the past. Will follow in in AM. Patient needs a rapid Covid prior to admission. Alicia Jacobo RN [phone] If [facility] can not accept the patient would like the next referral to [facility] Patient not discharging today called Dr Simpson and telephone order received to start the cleocin 300mg Q12hr for 10days as ordered for discharge Updated the patient she needs to choose another facility and she states she has gone to [facility] and would like a referral and sent. Called Admissions and they will review the referral. Spoke to [facility] and they have no beds. [phone]. Have tried constantly for 15 minutes to call [facility] and no one answers. Line rings abut 10 times and then cuts off. [phone] Called Admissions at [facility] and she has the referral and will let CM know shortly if they will accept [facility] Physical Therapy Treatment PT Discharge Recommendations: intermediate facility placement Distance Ambulated (ft): 30 Device: Rolling walker L Knee Flexion 0-140: 0 No flexion permitted Fall prevention education provided including use of call light in hospital, use of appropriate assistive device, safe mobility techniques, and safety measures at home. Continue PT as per POC. Subjective Patient in bed upon arrival to room and agreeable to treatment. Mobility noted below. Patient awaiting RN with pain medication. Ice pack provided. Call light and phone in reach and DVT pumps in use. Continue as per Physical Therapy Plan of care until patient is discharged from [facility]. Objective 04/21/22 1401 General Family/Caregiver Present No PT Time Calculation PT Start Time 1401 PT Stop Time 1415 PT Time Calculation (min) 14 min Precautions Medical Precautions Fall Risk Safety Interventions Call espino within reach;Gait belt LLE Weight Bearing Status As Tolerated Orthoses Applied (TROM locked in extension) Pain Assessment Pain Assessment 0-10 Pain Score 9 Pain Location Knee Pain Orientation Left Pain Interventions Cold pack Cognition Arousal/Alertness Appropriate responses to stimuli Orientation Level Oriented X4 Following Commands Follows all commands and directions without difficulty Bed Mobility Sitting to Lying Assistance Minimum assistance;Moderate verbal cues Lying to Sitting Assistance Minimum assistance;Moderate verbal cues Transfers Sit to Stand Assistance Contact guard;Moderate verbal cues;Minimal tactile cues Ambulation Walking Assistance Minimum assistance Device Rolling walker Distance Ambulated (ft) 30 AROM LLE (degrees) L Knee Flexion 0-140 0 No flexion permitted Procedures Procedures Gait Training;Therapeutic Activity Gait Training Gait Training Time Entry 12 Gait Training Activity 1 gait training Therapeutic Activity Therapeutic Activity Time Entry 2 Therapeutic Activity 1 bed mobility Therapeutic Activity 2 transfers Therapeutic Activity 3 TROM educations PT Assessment Prognosis Good Evaluation/Treatment Tolerance Patient tolerated treatment well Medical Staff Made Aware Yes Comments RN cleared for treatment Plan PT Plan Skilled PT PT Discharge Recommendations intermediate facility placement Goals/Education Encounter Problems Encounter Problems (Active) Template: Physical Therapy Problem: PT Short Term Goals Dates: Start: 04/20/22 Goal: Pt will ambulate 150 ft. with wheeled walker and SBA Dates: Start: 04/20/22 Expected End: 04/23/22 Outcomes Date/Time User Outcome 04/21/22 1441 Licha Kelley PTA Progressing Goal: Pt will perform bed mobility with CGA. Dates: Start: 04/20/22 Expected End: 04/23/22 Outcomes Date/Time User Outcome 04/21/22 1441 Licha Kelley PTA Progressing Goal: Pt will transfer with SBA. Dates: Start: 04/20/22 Expected End: 04/23/22 Outcomes Date/Time User Outcome 04/21/22 1441 Licha Kelley PTA Progressing Goal: Caregiver/patient will demonstrate safety precautions during mobility tasks with CGA Dates: Start: 04/20/22 Expected End: 04/23/22 Outcomes Date/Time User Outcome 04/21/22 1441 Licha Kelley PTA Progressing Goal: Pt will ascend/descend steps with CGA and LRAD Dates: Start: 04/20/22 Expected End: 04/23/22 Outcomes Date/Time User Outcome 04/20/22 1859 Meghan Muller RN Progressing Encounter Problems (Resolved) There are no resolved problems. Education Documentation Mobility Training, taught by Licha Kelley PTA at 04/21/2022 2:41 PM. Learner: Patient Readiness: Acceptance Method: Explanation Response: Verbalizes Understanding Education Comments No comments found. 04/21/22 1336 Clinical Encounter Type Visited With Patient Time Spent 15 Minutes Type of Contact Introduction SPIRITUAL CARE ASSESSMENT Spiritual Care Assessment: Pt appropriate and coping peaceful and positive Spiritual Intervention: Active listening [facility] provided Outcome: Pt shared feelings and treatment hopes Plan: PC will return at pt/family request. DR Simpson called back and he is in surgery off site and unable to enter an order Order received for Lovenox 40mg daily for 7 days DC aspirin. Called [facility]. [facility] they have the referral and could be able to answer within an hour if they will be able to accept. Message left for Dr Simpson as patient can not take aspirin for a new anticoag order Called [facility] and spoke to the front end loader driver. [phone]. Admissions is not in for another hour or two. She states they do have beds and faxed the referral to [phone] Patient would like Replaced By [facility]. Referral sent and message left for Admissions Belen Cast [phone] but they are an IPR and since the last IPR said she did not qualify for IPR CM is not anticipating an acceptance. Discussed with the patient and she would liek a referral to [facility] Patient eating lunch. Declines at this time to finish eating. Will attempt again in pm. Patient would like [facility] in [place], Called the [facility] spoke to Alphonso [phone] She does not have beds until Maybe next week. Updated the patient she would like to try [facility] called [phone] spoke to Connie she does not have beds until at less next Sunday Patient would like IPR at [facility] Called Cori [phone] fax [phone] In admissions with referral and she does not qualify for them and they will not accept [facility] - PROGRESS NOTE Patient Name : Trinity Godinez Patient : 1955 Patient Admit Date : 04/20/2022 Admission Diagnosis : Postoperative Medical Comanagement Provider Name : Trey Martin MD Date Of Service : 04/21/22 IMPRESSION AND PLAN : This 66 y.o. female is 1 Day Post-Op. I have seen the patient personally today. I have reviewed available labs and imaging results, as documented below in the results. I have reviewed available progress notes from the nursing, physical therapy, and surgical services. Prescription drug management has been provided, as outlined in the impression and plan. Status post Procedure(s): Left knee extensor mechanism realignment with lateral retinacular release A medical consult has been ordered by the surgeon for perioperative management of the patient's chronic medical conditions including the following . . . Chronic pain: Chronic condition by history. Prescription drug management through reordering this patient's gabapentin. Oxycodone ordered at increased dose and frequency post procedure. Pain is tolerable this morning on rounds. Hypertension: Chronic condition, stable postoperatively. Prescription drug management accomplished through ordering metoprolol post procedure. Blood pressure reviewed. Blood pressure within an acceptable range on medication. BP Readings from Last 3 Encounters: 04/21/22 112/66 01/06/22 111/63 01/08/21 125/83 GERD: Chronic condition, stable with prescription drug management post procedure. Carafate reordered. Thrombophilia: Chronic condition, stable by history. Patient with a pulmonary embolism from 2019. Warfarin restarted. Anxiety: Chronic condition controlled by history. Prescription drug management with reordering her venlafaxine. DVT prophylaxis deferred to the primary team. Recommend following the current ACCP guidelines. This patient will be considered acceptable for discharge from a medical perspective if the following criteria are met . . . - Oxygen Saturations > 90% on Room Air - Able to void without difficulty - Meets Physical Therapy goals for discharge - Passing Flatus without nausea vomiting or abdominal distention - Cleared for discharge by surgeon - Discharge medication reconciliation completed, defer post discharge management of anticoagulants, DVT prophylaxis, NSAIDs, opiates, and antibiotics to surgical service. Disposition: intermediate facility. Subjective Patient reports pain is currently tolerable being controlled with narcotic pain medication. REVIEW OF SYSTEMS Cardiovascular: Denies chest pain Respiratory: Denies shortness of breath or cough Gastrointestinal: Denies abdominal pain or nausea/vomiting Genitourinary: Denies urinary retention or incomplete voiding VITALS : Visit Vitals BP 110/66 (BP Location: Right arm, Patient Position: Lying) Pulse 73 Temp 36.6 C (97.9 F) (Temporal) Resp 14 Ht 1.727 m (68 ) Wt 80.9 kg (178 lb 5.6 oz) SpO2 97% BMI 27.12 kg/m Smoking Status Former BSA 1.95 m PHYSICAL EXAM : General - No acute distress; Alert and conversational Cardiology - RRR, without peripheral edema Respiratory - CTA, normal respiratory effort; no wheezing on inspiration or exhalation Abdominal - soft, still nondistended/nontender Musculoskeletal - No calf tenderness noted on palpation Psychiatric - Appropriate affect, Alert and oriented to person, place, and situation RESULTS : INTAKE/OUTPUT Intake/Output Summary (Last 24 hours) at 04/21/2022 0711 Last data filed at 04/21/2022 0516 Gross per 24 hour Intake 2100 ml Output 1547.5 ml Net 552.5 ml LABS Results from last 7 days Lab Units 04/21/22 0559 WBC AUTO K/mcL 13.5* HEMOGLOBIN g/dL 11.6* HEMATOCRIT % 37.0 PLATELETS K/mcL 220 Results from last 7 days Lab Units 04/21/22 0559 04/20/22 1241 SODIUM mmol/L 139 -- POTASSIUM mmol/L 4.6 -- CHLORIDE mmol/L 108* -- CO2 mmol/L 22 -- BUN mg/dL 19 -- CREATININE mg/dL 1.19 -- POCT GLUCOSE mg/dL -- 135* GLUCOSE mg/dL 135* -- EGFR mL/min/1.73m2 51* -- Lab Results Component Value Date MG 2.0 01/13/2021 IMAGING XR Knee 1-2 Views Left Final Result FINDINGS/IMPRESSION: Status post LEFT total knee arthroplasty revision utilizing longstem interlocking femoral and tibial components. Air within the surrounding soft tissues, surgical drain and skin elvira anteriorly, consistent with recent postoperative state. No acute fracture or dislocation is visualized. Atherosclerotic calcifications. -------- FINAL REPORT -------- Dictated By: Heriberto Saldana Dictated Date: 04/20/2022 16:06 Assigned Physician: Heriberto Saldana Reviewed and Electronically Signed By: Heriberto Saldana Signed Date: 04/20/2022 16:07 Workstation ID: [id number] Transcribed By: Self Edit Transcribed Date: 04/20/2022 16:06 XR Knee 1-2 Views Left Narrative: EXAMINATION TYPE: XR KNEE 1-2 VIEWS LEFT DATE OF EXAM : 04/20/2022 3:57 PM HISTORY: post op pacu knee revision COMPARISON: 01/03/2021 Impression: FINDINGS/IMPRESSION: Status post LEFT total knee arthroplasty revision utilizing longstem interlocking femoral and tibial components. Air within the surrounding soft tissues, surgical drain and skin elvira anteriorly, consistent with recent postoperative state. No acute fracture or dislocation is visualized. Atherosclerotic calcifications. -------- FINAL REPORT -------- Dictated By: Heriberto Saldana Dictated Date: 04/20/2022 16:06 Assigned Physician: Heriberto Saldana Reviewed and Electronically Signed By: Heriberto Saldana Signed Date: 04/20/2022 16:07 Workstation ID: [id number] Transcribed By: Self Edit Transcribed Date: 04/20/2022 16:06 ECHOCARDIOGRAM No results found for this or any previous visit. Rounded with Dr Ming Simpson and Radha Cortes - PT progess reviewed- WBAT on the operative extremity NO KNEE FLEXION TROM FULL EXT. FOR 2 WEEKS - RESUME WARFARIN AND Aspirin 81mg BID x 7 DAYS for DVT ppx - no incisional issues noted, STAPLE closure APPLY EXTRA ABDS LATERAL KNEE JOINT LINE FOR PRESSURE UNTIL FOLLOW UP WITH SURGEON - Follow-up in clinic in 2-3 weeks FOR STAPLE REMOVAL - Plan for discharge to SNF when cleared and medically stable [facility] Progress Note 1 Day Post-Op: * Left knee extensor mechanism realignment with lateral retinacular release LOS: 1 day Subjective: Patient doing well. States that pain is tolerable with current regimen. Tolerating diet without nausea or vomiting. 30 ft with PT Objective: Last Recorded Vitals: Blood pressure 110/66, pulse 73, temperature 36.6 C (97.9 F), temperature source Temporal, resp. rate 14, height 1.727 m (68 ), weight 80.9 kg (178 lb 5.6 oz), SpO2 97 %. Gen: comfortable, NAD Focused Musculoskeletal Exam: Surgical incision/dressing clean, dry, and intact. No drainage or swelling. Neurovascularly intact in the operative extremity. LABS: Lab Results Component Value Date WBC 7.4 04/05/2022 HGB 12.2 04/05/2022 HCT 40.0 04/05/2022 MCV 91.3 04/05/2022 PLT 289 04/05/2022 Lab Results Component Value Date GLUCOSE 135 (H) 04/20/2022 CALCIUM 9.4 04/05/2022 NA 138 04/05/2022 K 4.9 04/05/2022 CO2 24 04/05/2022 CL 105 04/05/2022 BUN 22 (H) 04/05/2022 CREATININE 1.07 04/05/2022 Lab Results Component Value Date INR 1.0 04/20/2022 INR 1.0 01/05/2022 INR 0.9 01/04/2022 No results found for: PTT Assessment & Plan 66 y.o. female 1 Day Post-Op status post * Left knee extensor mechanism realignment with lateral retinacular release. - WBAT on the operative extremity in TROM locked in extension - Aspirin 81mg BID x 6 weeks for DVT ppx - PT - Follow-up in clinic in 2-3 weeks for staple removal and reevaluation - Plan for discharge to Subacute Rehab Facility ([facility] or [facility]) when cleared by PT and medically stable Goals: Problem: Health Behavior: Goal: Patient Specific Outcome Outcome: Progressing Problem: Sensory: Goal: Demonstrates/reports adequate pain control Outcome: Progressing Problem: Coping: Goal: Verbalizations of alleviation of anxiety will increase Outcome: Progressing Problem: Cognitive: Goal: Knowledge of disease or condition will improve Outcome: Progressing Problem: Physical Regulation: Goal: Postoperative complications will be avoided or minimized Outcome: Progressing Goal: Ability to maintain clinical measurements within normal limits will improve Outcome: Progressing Problem: Skin Integrity: Goal: Patient will remain free of injury and skin integrity maintained Outcome: Progressing Problem: Respiratory: Goal: Knowledge of LUPE (Obstructive Sleep Apnea) risk and follow-up will improve Outcome: Progressing Problem: Cognitive: Goal: Last Known Fall Outcome: Progressing Goal: Mobility requiring assistance of person or device Outcome: Progressing Goal: Dizziness Outcome: Progressing Goal: Medications Outcome: Progressing Goal: Mental Status/LOC/Awareness Outcome: Progressing Goal: Toileting Needs Outcome: Progressing Goal: Volume and Electrolyte Status Outcome: Progressing Goal: Communication/Sensory Outcome: Progressing Goal: Behavior Outcome: Progressing Problem: Sensory: Goal: Pain level will improve or be tolerable Outcome: Progressing Goal: Ability to develop a pain control plan will improve Outcome: Progressing Problem: VTE Prevention: Goal: Will remain free of signs and symptoms of VTE Outcome: Progressing Goal: Will verbalize understanding of the information provided Outcome: Progressing Identify possible barriers to meeting goals/advancing plan of care: Stability of the patient: Moderately Stable - Low risk of patient condition declining or worsening End of Shift Summary: Pt progressing towards all goals for discharge. Problem: Health Behavior: Goal: Patient Specific Outcome Outcome: Progressing Problem: Sensory: Goal: Demonstrates/reports adequate pain control Outcome: Progressing Problem: Coping: Goal: Verbalizations of alleviation of anxiety will increase Outcome: Progressing Problem: Cognitive: Goal: Knowledge of disease or condition will improve Outcome: Progressing Problem: Physical Regulation: Goal: Postoperative complications will be avoided or minimized Outcome: Progressing Goal: Ability to maintain clinical measurements within normal limits will improve Outcome: Progressing Problem: Skin Integrity: Goal: Patient will remain free of injury and skin integrity maintained Outcome: Progressing Problem: Respiratory: Goal: Knowledge of LUPE (Obstructive Sleep Apnea) risk and follow-up will improve Outcome: Progressing Problem: Cognitive: Goal: Last Known Fall Outcome: Progressing Goal: Mobility requiring assistance of person or device Outcome: Progressing Goal: Dizziness Outcome: Progressing Goal: Medications Outcome: Progressing Goal: Mental Status/LOC/Awareness Outcome: Progressing Goal: Toileting Needs Outcome: Progressing Goal: Volume and Electrolyte Status Outcome: Progressing Goal: Communication/Sensory Outcome: Progressing Goal: Behavior Outcome: Progressing Problem: Sensory: Goal: Pain level will improve or be tolerable Outcome: Progressing Goal: Ability to develop a pain control plan will improve Outcome: Progressing Problem: Falls: Goal: (Goal) Patient will experience maximum safety and reduce risk for falls. Outcome: Progressing Goal: Patient will not fall or injure themselves during hospitalization. Outcome: Progressing Problem: VTE Prevention: Goal: Will remain free of signs and symptoms of VTE Outcome: Progressing Goal: Will verbalize understanding of the information provided Outcome: Progressing Problem: PT Short Term Goals Goal: Pt will ambulate 150 ft. with wheeled walker and SBA Outcome: Progressing Goal: Pt will perform bed mobility with CGA. Outcome: Progressing Goal: Pt will transfer with SBA. Outcome: Progressing Goal: Caregiver/patient will demonstrate safety precautions during mobility tasks with CGA Outcome: Progressing Goal: Pt will ascend/descend steps with CGA and LRAD Outcome: Progressing Goals: Identify possible barriers to meeting goals/advancing plan of care: N/A Stability of the patient: Moderately Stable - Low risk of patient condition declining or worsening End of Shift Summary: Patient ambulated 30ft with PT. Plan to d/c to SNF when able. [facility] Evaluation PT Discharge Recommendations: intermediate facility placement Distance Ambulated (ft): 30 Device: Rolling walker LLE Weight Bearing Status: As Tolerated L Knee Flexion 0-140: 0 - 0, no L knee flexion permitted Prosthesis/Orthosis Used: Left (24/7 locked, no flexion) Strength LLE L Ankle Dorsiflexion: 5/5 L Ankle Plantar Flexion: 5/5 AM-PAC: * Calos Smith MD - Primary Procedure(s): Left knee extensor mechanism realignment with lateral retinacular release Day of Surgery Fall prevention education provided including use of call light in hospital, use of appropriate assistive device, safe mobility techniques, and safety measures at home. Continue PT as per POC. Subjective In to see pt. For PT eval , s/p L knee ext. Mechanism realignment with lateral release. Pt. Supine in bed with locked T-ROM to L knee and hemovac drain. Due to thick dressing at knee, proximal strap of brace with gap. PT adjusted some, but may need further adjustment with 2 person assist. See below for pts. Status. Pt. Amb. To/from BR and sat awhile, but unable to void. Pt. Returned to supine with increased time to position for comfort. Ice to L knee and all items in reach. Continue PT tx. Per POC with pt. Planning to discharge to SNF. Patient Active Problem List Diagnosis Pain management Unilateral primary osteoarthritis, right knee S/P TKR (total knee replacement), right Complication of internal left knee prosthesis ([facility]) 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, initial encounter ([facility]) Past Medical History: Diagnosis Date Anxiety Arthritis Chronic pain disorder COPD (chronic obstructive pulmonary disease) ([facility]) GERD (gastroesophageal reflux disease) Hypertension Pulmonary embolism ([facility]) 2019 Wears dentures Wears glasses Past Surgical History: Procedure Laterality Date APPENDECTOMY HIP ARTHROPLASTY HYSTERECTOMY KNEE ARTHROPLASTY OTHER SURGICAL HISTORY ulnar nerve removed right arm OTHER SURGICAL HISTORY right rib resected TONSILLECTOMY Objective 04/20/22 1742 General Family/Caregiver Present Yes PT Time Calculation PT Start Time 1742 PT Stop Time 1820 PT Time Calculation (min) 38 min Precautions Medical Precautions Fall Risk Safety Interventions Call espino within reach;Gait belt LLE Weight Bearing Status As Tolerated Orthoses Applied (T-ROM) Prosthesis/Orthosis Used Left (23/10 locked, no flexion) Pain Assessment Pain Assessment 0-10 Pain Score 5 - Moderate pain Pain Type Surgical pain Pain Location Knee Pain Orientation Left Pain Interventions Cold applied;Repositioned;Ambulation/incr eased activity Cognition Orientation Level Oriented X4 Home Living Type of Home House Lives With Alone Home Adaptive Equipment Walker - rolling Home Layout One level Home Access Stairs to enter with rails Entrance Stairs-Rails Rail on both sides Entrance Stairs-Number of Steps 5 Prior Function Level of [place] Independent with mobility and functional transfers Receives Help From Family Activity Tolerance Activity Tolerance Comments poor Dynamic Standing Balance Dynamic Standing-Level of Assistance Minimum assistance Dynamic Standing-Balance Support Right upper extremity supported;Left upper extremity supported Dynamic Standing-Comments support of FWW Bed Mobility Sitting to Lying Assistance Minimum assistance;Minimal verbal cues Sitting to Lying Deficit Verbal cueing;Supervision/safety awareness;Increased time to complete;Assist lifting left leg onto bed Lying to Sitting Assistance Minimum assistance Lying to Sitting Deficit Verbal cueing;Supervision/safety awareness;Increased time to complete;Assist lifting left leg off of bed (support of L LE) Transfers Sit to Stand Assistance Minimum assistance;Minimal verbal cues (bed height elevated, with FWW) Sit to Stand Deficit Verbal cueing;Steadying;Supervision/safety awareness Ambulation Walking Assistance Minimum assistance;Minimal verbal cues Walking Deficit Verbal cueing;Supervision/safety awareness;Increased time to complete (slow step-to gait) Device Rolling walker Distance Ambulated (ft) 30 Comments to/from BR with shoes on Stairs Reason(s) not performed: Due to safety concerns (Comment) LLE Assessment LLE Assessment Impaired AROM LLE (degrees) L Knee Flexion 0-140 0 - 0, no L knee flexion permitted Strength LLE L Ankle Dorsiflexion 5/5 L Ankle Plantar Flexion 5/5 PT Assessment PT Assessment/ Barriers to discharge Decreased strength;Impaired balance;Impaired gait;Decreased mobility;Decreased safety awareness;Pain;Orthopedic restrictions Prognosis Good Evaluation/Treatment Tolerance Patient tolerated treatment well Medical Staff Made Aware Yes Comments AIDAN Christianson notified re status/no void Plan Treatment/Interventions Functional transfer training;Patient/family training;Bed mobility;Gait training;Balance training PT Plan Skilled PT PT Frequency 7 days per week PT Duration of Sessions PRN PT Treatments per day 1-2 times per day PT Discharge Recommendations intermediate facility placement PT - Evaluation Status Complete PT Evaluation Time Entry PT Evaluation (Low) Time Entry 15 Treatment performed during evaluation: Gait Training Gait Training Time Entry: 15 Gait Training Activity 1: gait training Gait Training Activity 2: instruct re safe use of FWW Therapeutic Activity Therapeutic Activity Time Entry: 8 Therapeutic Activity 1: bed mobility training Therapeutic Activity 2: transfer training Therapeutic Activity 3: instruct re [place] Therapeutic Activity 4: adjust T-ROM Goals and Education Encounter Problems Encounter Problems (Active) Template: Physical Therapy Problem: PT Short Term Goals Dates: Start: 04/20/22 Goal: Pt will ambulate 150 ft. with wheeled walker and SBA Dates: Start: 04/20/22 Expected End: 04/23/22 Outcomes Date/Time User Outcome 04/20/221822 Katt Amin PT Progressing Goal: Pt will perform bed mobility with CGA. Dates: Start: 04/20/22 Expected End: 04/23/22 Outcomes Date/Time User Outcome 04/20/221822 Katt Amin PT Progressing Goal: Pt will transfer with SBA. Dates: Start: 04/20/22 Expected End: 04/23/22 Outcomes Date/Time User Outcome 04/20/221822 Katt Amin PT Progressing Goal: Caregiver/patient will demonstrate safety precautions during mobility tasks with CGA Dates: Start: 04/20/22 Expected End: 04/23/22 Outcomes Date/Time User Outcome 04/20/221822 Katt Amin PT Progressing Goal: Pt will ascend/descend steps with CGA and LRAD Dates: Start: 04/20/22 Expected End: 04/23/22 Encounter Problems (Resolved) There are no resolved problems. Education Documentation Explain call button use, taught by Katt Amin PT at 04/20/2022 5:42 PM. Learner: Family, Patient Readiness: Acceptance Method: Explanation, Demonstration Response: Verbalizes Understanding, Demonstrated Understanding, Needs Reinforcement Teach fall prevention measures, taught by Katt Amin PT at 04/20/2022 5:42 PM. Learner: Family, Patient Readiness: Acceptance Method: Explanation, Demonstration Response: Verbalizes Understanding, Demonstrated Understanding, Needs Reinforcement Home Exercise Program, taught by Katt Amin PT at 04/20/2022 5:42 PM. Learner: Family, Patient Readiness: Acceptance Method: Explanation, Demonstration Response: Verbalizes Understanding, Demonstrated Understanding, Needs Reinforcement Mobility Training, taught by Katt Amin PT at 04/20/2022 5:42 PM. Learner: Family, Patient Readiness: Acceptance Method: Explanation, Demonstration Response: Verbalizes Understanding, Demonstrated Understanding, Needs Reinforcement Education Comments No comments found. Spoke with the patient and son at bedside briefly to see what SNF she wants to go to [facility]. Brother will transport. CM will complete assessment tomorrow However Referral to [facility] faxed to [phone] still need P.T. Eval and will need Written Rx's on Rounds for SNF Son notified not to picker feeder the prescriptions Escribed to her pharmacy. Patient has not arrived to the IP floor for CM assessment Will be seen tomorrow Pain rated at 7 but respiratory rate as low as 9 per minute. Vital signs stable. Meets criteria for discharge/transfer from PACU. documented in this encounter [facility] 04-22-2022 Hospital course Narrative Coumadin-At discharge please follow up with your prescribing provider regarding follow up/labs and appointment. Please follow surgeon's discharge instructions and prescription directions. Surgeon' discharge instructions are in patient's folder- FOLLOW SURGEON INSTRUCTION SHEETS Contact Surgeon's office with any questions/concerns [phone] [facility] -PT/OT Eval for Gait training, ADL'S, bed mobility, transfers, and strengthening, venous return exercises and modalities prn. TROM to left knee ATC No flexion for 2 weeks APPLY EXTRA ABDS LATERAL KNEE JOINT LINE FOR PRESSURE UNTIL FOLLOW UP WITH SURGEON -Plasma Flow SCD'S Compression leg pumps on Bilateral Legs for 20 hours per day x 2 weeks for additional DVT prevention- SEE SURGEONS INSTRUCTION SHEETS FOR DIRECTIONS -use over the counter stool softeners to prevent constipation Call for a 3 week follow up appointment and any questions or concerns. Verify Office location when scheduling. Coumadin-At discharge please follow up with your prescribing provider regarding follow up/labs and appointment. Pre-Surgery Instructions: Medication Instructions acetaminophen (TYLENOL) 500 mg tablet Take as recommended by your specialist albuterol HFA (PROAIR HFA ; PROVENTIL HFA ; VENTOLIN HFA) 90 mcg/actuation inhaler Other (see Additional Instructions)TO BRING DOS cholecalciferol (VITAMIN D-3) 50 mcg (2,000 unit) tablet Take as recommended by your specialist diazePAM (VALIUM) 2 mg tablet Take as recommended by your specialist gabapentin (NEURONTIN) 600 mg tablet Take as recommended by your specialist gabapentin (NEURONTIN) 600 mg tablet Take as recommended by your specialist isosorbide mononitrate (IMDUR) 60 mg 24 hr tablet Take as recommended by your specialist metoprolol succinate (TOPROL-XL) 100 mg 24 hr tablet Take as recommended by your specialist multivitamin (multivitamin) tablet Take as recommended by your specialist oxyCODONE (ROXICODONE) 5 mg immediate release tablet Take as recommended by your specialist potassium chloride (MICRO-K) 10 mEq CR capsule Take as recommended by your specialist promethazine (PHENERGAN) 25 mg tablet Take as recommended by your specialist sucralfate (CARAFATE) 1 gram tablet Take as recommended by your specialist temazepam (RESTORIL) 30 mg capsule Take as recommended by your specialist tiZANidine (ZANAFLEX) 4 mg tablet Take as recommended by your specialist venlafaxine XR (EFFEXOR-XR) 150 mg 24 hr capsule Take as recommended by your specialist venlafaxine XR (EFFEXOR-XR) 75 mg 24 hr capsule Take as recommended by your specialist warfarin (COUMADIN) 3 mg tablet Other (see Additional Instructions)LAST DOSE /12 MEDS PER [facility] [place] [place] [facility] Additional Instructions: Instructions to prepare for surgery: Increase water intake day PRIOR to surgery. Eat light meals or follow surgeon specific food instructions day PRIOR to surgery. At Midnight, nothing is allowed in your mouth. NO food, water, gum, candy, coffee, mints, tobacco, NOTHING AFTER MIDNIGHT. When you wake up, brush your teeth and use mouthwash. Don't swallow. Take small sip of water with meds that are to be taken DOS. Shower night prior and morning of surgery with antibiotic cleanser OR Dial antibacterial soap (as designated by surgeon). No lotions, creams, powders on your skin. You may wear deodorant (unless surgery is on your shoulder or breast(s)). No shaving surgical site (within 48 hours of surgery). Remove all jewelry, piercings and leave that at home. Leave valuable at home. Wear loose fitting clothes. Bring photo ID, medical insurance card, and copay as needed when you check in for surgery. In addition, bring any of the following: CPAP, living will/ medical POA, glasses, case, hearing aid container, shoulder sling, back brace, walker, cervical collar. Bring your COVID vaccine card, if applicable. Leave walker &/or cane (unless needed prior to surgery) and overnight bag in the car until after your procedure when you are assigned a room. Only 1 designated adult is allowed to go back into Pre-Op area with you. Surgical times are subject to change up until 5:30pm the evening prior to your surgery. Check in at customer service receptionist desk [address] [place] [address]. If Outpatient, these additional instructions apply: An adult must stay with you the whole time you are here and drive you home. An adult must stay with you at home for 24 hours due to Anesthesia. If you have LUPE, you are required to stay 3 hours after your surgery before we can discharge you. documented in this encounter [facility] 04-20-2022 Procedure note Denies need to void. Pad beneath pt dry. [facility] 04-20-2022 Procedure note Denies need to void. Pad beneath pt dry. All medications administered per Whitley Kelley [facility] witnessed by myself. Dr. Smith notified of patient reporting history of MRSA a couple years ago, has an allergy to Vancomycin and Ancef, currently has Clindamycin ordered. No new orders. 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 PROCEDURE: Left knee arthrotomy, excision of hardware from the patella, lateral retinacular release, proximal realignment of the extensor mechanism. SURGEON: Calos Smith MD MEDICAL TECHNICAL WRITER: Jelani Burgos PA-C. Mr. Burgos was required to assist with the preoperative planning, positioning of the patient, surgical approach, manipulation of the extremity and closure. ANESTHESIA: General with adductor canal and iPACK block. ESTIMATED BLOOD LOSS: 25 mL. FLUIDS: 2000 mL. LOCAL: 60 mL of 0.5% Naropin and 0.5 mL of epinephrine 1:1000. The intraoperative white blood cell count is 111. HISTORY AND OPERATIVE REPORT: The patient is a 66-year-old female known to our practice. She has undergone multiple surgeries on her left knee for treatment of periprosthetic infection. She did well after we treated her last infection. At this point, she presents with pain and discomfort, some noise with range of motion. She has a [employer] rotating hinge in place. The noise feels coming from a metallic anchor, which had been placed in the patella at some point in her multiple surgeries, now appears that the patella was eroded and the anchor is rubbing against her trochlear groove, the femoral component. The patella was also subluxed and dislocated. So, we discussed removal of the hardware and proximal realignment of the extensor mechanism with lateral retinacular release. She does wish to proceed with the same. Medical clearance was obtained and she is cleared by general medical consultants, admitted to [facility], evaluated by the anesthesia team. She is taken to the OR and after suitable and adequate induction of general anesthesia, we positioned the patient supine. We prepped and draped the left knee and left lower extremity using a standard prep. We centered the patient in the operating room. I discussed the procedure with the patient, signed the extremity, so we note the signatures myself, my initials, the patient's initials. We note the side, the procedure, the hardware in place and once we have completed the formal timeout, we exsanguinated the extremity, elevated the tourniquet. I then proceeded to perform a left knee arthrotomy using the previous incision, then dissecting through skin and subcutaneous tissues to the level of the extensor following a standard medial parapatellar arthrotomy. Fluid is sent for cell count, returned to 111. Synovectomy was performed. We debrided the patella. We used high-speed bur to remove the anchor. Once removed, we now performed a lateral retinacular release in order to enhance patellofemoral tracking. At this point, we were able to get the patella to track nicely, so we advanced the vastus medialis obliquus distally and laterally. We released the tourniquet, obtained hemostasis. We completed the closure advancing the vastus medialis obliquus distally and laterally. We were able to flex to about 65-70 degrees without much tension on the sutures and so, we will immobilize the patient initially, allow the soft tissues to heal, and then commenced with range of motion. We did place a drain exiting superolaterally. So, we completed our approximated extensor mechanism with interrupted Vicryl. We then closed the lateral arthrotomy with 2-0 Vicryl and then we closed the skin with elvira, applied bulky dressing, wound VAC type dressing and negative pressure dressing and take the patient to the postanesthesia care unit in satisfactory condition. CALOS SMITH MD TT: 04/20/2022 15:47:00 LEANN/ROCIO documented in this encounter [facility] 04-20-2022 Consult note Associated Order (s): IP CONSULT TO HOSPITALIST [facility] - PROGRESS NOTE Patient Name : Trinity Godinez Patient : 1955 Patient Admit Date : 04/20/2022 Admission Diagnosis : Postoperative Medical Comanagement Provider Name : Trey Martin MD Date Of Service : 04/20/22 IMPRESSION AND PLAN : This 66 y.o. female is Day of Surgery. I have seen the patient personally today. I have reviewed available labs and imaging results, as documented below in the results. I have reviewed available progress notes from the nursing, physical therapy, and surgical services. Prescription drug management has been provided, as outlined in the impression and plan. Status post Procedure(s): Left knee extensor mechanism realignment with lateral retinacular release A medical consult has been ordered by the surgeon for perioperative management of the patient's chronic medical conditions including the following . . . COPD: Chronic condition, stability unknown. Patient is still actively smoking. Prescription drug management includes albuterol nebulizers as needed postoperatively. Patient will be monitored closely on continuous pulse oximetry. Hypertension: Chronic condition, stable by history. Prescription drug management includes reordering the patient's metoprolol. As needed clonidine will be added for blood pressure elevations. GERD: Chronic condition, stable by history. Prescription drug management includes reordering the patient's Carafate with a as needed H2 cathryn. Insomnia: Chronic condition, stable with the use of Restoril. Prescription drug management includes reordering this medication. Oxygen saturation will be monitored closely with narcotic pain medication. Anxiety: Chronic condition, stable and controlled. Prescription drug management includes reordering the patient's venlafaxine.. Thrombophilia: History of a pulmonary embolism in 2019. At increased risk for postoperative thrombophilia. Nicotine dependence: Active tobacco use. Cessation recommended. DVT prophylaxis deferred to the primary team. Increased DVT prophylaxis is recommended. This may come in the form of either LMWH or a DOAC. Ultimately, the specific pharmacologic prophylaxis will be per the discretion of the primary surgical service. This patient will be considered acceptable for discharge from a medical perspective if the following criteria are met . . . - Oxygen Saturations > 90% on Room Air - Able to void without difficulty - Meets Physical Therapy goals for discharge - Passing Flatus without nausea vomiting or abdominal distention - Cleared for discharge by surgeon - Discharge medication reconciliation completed, defer post discharge management of anticoagulants, DVT prophylaxis, NSAIDs, opiates, and antibiotics to surgical service. Subjective Patient reports pain is currently tolerable in the PACU. Pain control treatment to continue on the floor. REVIEW OF SYSTEMS Cardiovascular: Denies chest pain Respiratory: Denies shortness of breath or cough Gastrointestinal: Denies abdominal pain or nausea/vomiting Genitourinary: Denies urinary retention or incomplete voiding VITALS : Visit Vitals BP 131/74 Pulse 81 Temp 36.6 C (97.9 F) Resp 13 Ht 1.727 m (68 ) Wt 80.9 kg (178 lb 5.6 oz) SpO2 97% BMI 27.12 kg/m Smoking Status Former BSA 1.95 m PHYSICAL EXAM : General - No acute distress; Alert and conversational Cardiology - Regular rhythm, no tachycardia; No edema Respiratory - Clear to auscultate bilaterally; No accessory respiratory muscle use noted; No wheezing Abdominal - Non-tender to palpation; nondistended Musculoskeletal - No calf tenderness noted on palpation Psychiatric - Appropriate affect, Alert and oriented to person, place, and situation RESULTS : INTAKE/OUTPUT Intake/Output Summary (Last 24 hours) at 04/20/2022 1555 Last data filed at 04/20/2022 1524 Gross per 24 hour Intake 2000 ml Output -- Net 2000 ml LABS Results from last 7 days Lab Units 04/20/22 1241 POCT GLUCOSE mg/dL 135* Lab Results Component Value Date MG 2.0 01/13/2021 IMAGING XR Knee 1-2 Views Left (Results Pending) XR CHEST 1 VIEW EXAMINATION TYPE: XR Chest 1 View DATE OF EXAM: 01/04/2021 11:36 AM HISTORY: Line placement COMPARISON: Radiograph dated 01/04/2021 FINDINGS: Right PICC is shown terminating in the superior vena cava. Streaky opacity is noted in the mid left lung. No pneumothorax or large pleural effusion identified. Cardiac silhouette is within normal limits for technique. No acute osseous findings. Prior left rib fractures. Right surgical clips. IMPRESSION: 1. Right PICC terminates in the superior vena cava. 2. Streaky opacity in the mid left lung, likely atelectasis or scarring. Ramy Santos thanks you for the opportunity to care for your patient. Workstation ID: [id number] Dictated By: Garo Albarado MD 01/04/2021 11:41 Assigned Physician: Garo Albarado MD Reviewed and Electronically Signed By: Garo Albarado MD 01/04/2021 11:45 Transcribed by: STEW 01/04/2021 11:41 Technologist: RAQUEL ECHOCARDIOGRAM No results found for this or any previous visit. [facility] 04-20-2022 Consult note Associated Order (s): IP CONSULT TO HOSPITALIST [facility] - PROGRESS NOTE Patient Name : Trinity Godinez Patient : 1955 Patient Admit Date : 04/20/2022 Admission Diagnosis : Postoperative Medical Comanagement Provider Name : Trey Martin MD Date Of Service : 04/20/22 IMPRESSION AND PLAN : This 66 y.o. female is Day of Surgery. I have seen the patient personally today. I have reviewed available labs and imaging results, as documented below in the results. I have reviewed available progress notes from the nursing, physical therapy, and surgical services. Prescription drug management has been provided, as outlined in the impression and plan. Status post Procedure(s): Left knee extensor mechanism realignment with lateral retinacular release A medical consult has been ordered by the surgeon for perioperative management of the patient's chronic medical conditions including the following . . . COPD: Chronic condition, stability unknown. Patient is still actively smoking. Prescription drug management includes albuterol nebulizers as needed postoperatively. Patient will be monitored closely on continuous pulse oximetry. Hypertension: Chronic condition, stable by history. Prescription drug management includes reordering the patient's metoprolol. As needed clonidine will be added for blood pressure elevations. GERD: Chronic condition, stable by history. Prescription drug management includes reordering the patient's Carafate with a as needed H2 cathryn. Insomnia: Chronic condition, stable with the use of Restoril. Prescription drug management includes reordering this medication. Oxygen saturation will be monitored closely with narcotic pain medication. Anxiety: Chronic condition, stable and controlled. Prescription drug management includes reordering the patient's venlafaxine.. Thrombophilia: History of a pulmonary embolism in 2019. At increased risk for postoperative thrombophilia. Nicotine dependence: Active tobacco use. Cessation recommended. DVT prophylaxis deferred to the primary team. Increased DVT prophylaxis is recommended. This may come in the form of either LMWH or a DOAC. Ultimately, the specific pharmacologic prophylaxis will be per the discretion of the primary surgical service. This patient will be considered acceptable for discharge from a medical perspective if the following criteria are met . . . - Oxygen Saturations > 90% on Room Air - Able to void without difficulty - Meets Physical Therapy goals for discharge - Passing Flatus without nausea vomiting or abdominal distention - Cleared for discharge by surgeon - Discharge medication reconciliation completed, defer post discharge management of anticoagulants, DVT prophylaxis, NSAIDs, opiates, and antibiotics to surgical service. Subjective Patient reports pain is currently tolerable in the PACU. Pain control treatment to continue on the floor. REVIEW OF SYSTEMS Cardiovascular: Denies chest pain Respiratory: Denies shortness of breath or cough Gastrointestinal: Denies abdominal pain or nausea/vomiting Genitourinary: Denies urinary retention or incomplete voiding VITALS : Visit Vitals BP 131/74 Pulse 81 Temp 36.6 C (97.9 F) Resp 13 Ht 1.727 m (68 ) Wt 80.9 kg (178 lb 5.6 oz) SpO2 97% BMI 27.12 kg/m Smoking Status Former BSA 1.95 m PHYSICAL EXAM : General - No acute distress; Alert and conversational Cardiology - Regular rhythm, no tachycardia; No edema Respiratory - Clear to auscultate bilaterally; No accessory respiratory muscle use noted; No wheezing Abdominal - Non-tender to palpation; nondistended Musculoskeletal - No calf tenderness noted on palpation Psychiatric - Appropriate affect, Alert and oriented to person, place, and situation RESULTS : INTAKE/OUTPUT Intake/Output Summary (Last 24 hours) at 04/20/2022 1555 Last data filed at 04/20/2022 1524 Gross per 24 hour Intake 2000 ml Output -- Net 2000 ml LABS Results from last 7 days Lab Units 04/20/22 1241 POCT GLUCOSE mg/dL 135* Lab Results Component Value Date MG 2.0 01/13/2021 IMAGING XR Knee 1-2 Views Left (Results Pending) XR CHEST 1 VIEW EXAMINATION TYPE: XR Chest 1 View DATE OF EXAM: 01/04/2021 11:36 AM HISTORY: Line placement COMPARISON: Radiograph dated 01/04/2021 FINDINGS: Right PICC is shown terminating in the superior vena cava. Streaky opacity is noted in the mid left lung. No pneumothorax or large pleural effusion identified. Cardiac silhouette is within normal limits for technique. No acute osseous findings. Prior left rib fractures. Right surgical clips. IMPRESSION: 1. Right PICC terminates in the superior vena cava. 2. Streaky opacity in the mid left lung, likely atelectasis or scarring. Ramy Santos thanks you for the opportunity to care for your patient. Workstation ID: [id number] - [id number] Dictated By: Garo Albarado MD 01/04/2021 11:41 Assigned Physician: Garo Albarado MD Reviewed and Electronically Signed By: Garo Albarado MD 01/04/2021 11:45 Transcribed by: STEW 01/04/2021 11:41 Technologist: RAQUEL ECHOCARDIOGRAM No results found for this or any previous visit. documented in this encounter [facility] 04-20-2022 Procedure note All medications administered per Whitley Kelley SN witnessed by myself. [facility] 04-20-[address] Smith notified of patient reporting history of MRSA a couple years ago, has an allergy to Vancomycin and Ancef, currently has Clindamycin ordered. No new orders. [facility] 04-20-2022 History and physical note History and Physical Update ( H&P completed within the previous thirty days ) I personally reviewed the History and Physical, interviewed and examined the patient prior to surgery. No changes have occurred in the patient's condition since the History and Physical was completed. [facility] 04-20-2022 History and physical note History and Physical Update ( H&P completed within the previous thirty days ) I personally reviewed the History and Physical, interviewed and examined the patient prior to surgery. No changes have occurred in the patient's condition since the History and Physical was completed. documented in this encounter 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 PROCEDURE: Left knee arthrotomy, excision of hardware from the patella, lateral retinacular release, proximal realignment of the extensor mechanism. SURGEON: Calos Smith MD MEDICAL TECHNICAL WRITER: Jelani Burgos PA-C. Mr. Burgos was required to assist with the preoperative planning, positioning of the patient, surgical approach, manipulation of the extremity and closure. ANESTHESIA: General with adductor canal and iPACK block. ESTIMATED BLOOD LOSS: 25 mL. FLUIDS: 2000 mL. LOCAL: 60 mL of 0.5% Naropin and 0.5 mL of epinephrine 1:1000. The intraoperative white blood cell count is 111. HISTORY AND OPERATIVE REPORT: The patient is a 66-year-old female known to our practice. She has undergone multiple surgeries on her left knee for treatment of periprosthetic infection. She did well after we treated her last infection. At this point, she presents with pain and discomfort, some noise with range of motion. She has a [employer] rotating hinge in place. The noise feels coming from a metallic anchor, which had been placed in the patella at some point in her multiple surgeries, now appears that the patella was eroded and the anchor is rubbing against her trochlear groove, the femoral component. The patella was also subluxed and dislocated. So, we discussed removal of the hardware and proximal realignment of the extensor mechanism with lateral retinacular release. She does wish to proceed with the same. Medical clearance was obtained and she is cleared by general medical consultants, admitted to [facility], evaluated by the anesthesia team. She is taken to the OR and after suitable and adequate induction of general anesthesia, we positioned the patient supine. We prepped and draped the left knee and left lower extremity using a standard prep. We centered the patient in the operating room. I discussed the procedure with the patient, signed the extremity, so we note the signatures myself, my initials, the patient's initials. We note the side, the procedure, the hardware in place and once we have completed the formal timeout, we exsanguinated the extremity, elevated the tourniquet. I then proceeded to perform a left knee arthrotomy using the previous incision, then dissecting through skin and subcutaneous tissues to the level of the extensor following a standard medial parapatellar arthrotomy. Fluid is sent for cell count, returned to 111. Synovectomy was performed. We debrided the patella. We used high-speed bur to remove the anchor. Once removed, we now performed a lateral retinacular release in order to enhance patellofemoral tracking. At this point, we were able to get the patella to track nicely, so we advanced the vastus medialis obliquus distally and laterally. We released the tourniquet, obtained hemostasis. We completed the closure advancing the vastus medialis obliquus distally and laterally. We were able to flex to about 65-70 degrees without much tension on the sutures and so, we will immobilize the patient initially, allow the soft tissues to heal, and then commenced with range of motion. We did place a drain exiting superolaterally. So, we completed our approximated extensor mechanism with interrupted Vicryl. We then closed the lateral arthrotomy with 2-0 Vicryl and then we closed the skin with elvira, applied bulky dressing, wound VAC type dressing and negative pressure dressing and take the patient to the postanesthesia care unit in satisfactory condition. CALOS SMITH MD TT: 04/20/2022 15:47:00 LEANN/ROCIO [facility] 01-06-2022 History of Present illness Narrative All discharge criteria for discharge to home met, medically & surgically. BP u to WNL, tolerating up to bathroom w/o dizziness, lighthedeness. Report called to , station 2 questions answered. Notified Metoprolol and imdur held prior to discharge. Verbalized understanding. Plasma Flow activated for transport to [place]. Per brother. Chemical ice packs for comfort promotion. Spoek with patient and her brother will be here between 9and 10am to transport to [facility]. Faxed [facility] Rx' surgeon instruction sheets and AVS to [facility] at [phone]. Dischareg folder to nursing for discharge to [facility]. Rx's in folder for tramadol Oxycodone valium gabapentin restoril Surgeon instruction sheets AVS Transfer Summary Number for report to RN [phone] station 2 [facility] - PROGRESS NOTE Patient Name : Trinity Godinez Patient : 1955 Patient Diagnosis : Perioperative Medical Management Provider Name : Chong Hsieh MD Date Of Service : 01/06/22 Patient currently recovering POD#3. SUBJECTIVE : Pain control post-operatively : Incisional and operative pain appears to be controlled with current pain medication regimen. REVIEW OF SYSTEMS : Cardiovascular: Denies chest pain or pressure Respiratory: Denies shortness of breath or dyspnea Gastrointestinal: Denies abdominal cramping or distention.. Genitourinary: Denies urinary retention or incomplete voiding. Skin: Denies any new rash IMPRESSION AND PLAN : Prophylaxis For Prevention of Deep Vein Thrombosis ( DVT ) Prophylaxis should be based on the ACCP Guidelines and will be per surgeon's service per protocol. Management of NSAIDS, Anticoagulants, and Antibiotics will be per surgeon's service according to protocol. Patient should be encouraged regarding venous return exercises and ambulation. This patient will be considered acceptable for discharge from a medical perspective if the following criteria are met . . . 1. Oxygen Saturations > 90% on Room Air 2. Able to void without difficulty 3. Meets Physical Therapy goals for discharge 4. Passing Flatus 5. Cleared for discharge by surgeon and PT I have seen the patient personally today and reviewed the lab results section on this patient. This patient's medication list including their prescription drugs have been reviewed and specific recommendations as they relate to surgery and surgical recovery will be provided at discharge both verbally and in writing. A medical consult has been ordered by the surgeon for perioperative management of the patient's chronic medical conditions including the following . . . S/p Right TKR 01/03/22 Hypertension ( I 10 ) Chronic pre-existing condition present on admission. Currently being managed with standard anti-hypertensive medications. It should be noted that ROMA Inhibitors and ARBlockers and Diuretics are not normally given the morning of surgery due to the risks for perioperative hypotension. This patient's blood pressure will need to be monitored closely throughout their hospitalization since potential perioperative issues such as dehydration, pain level, and the use of anesthetics or pain medications can cause BP fluctuations. Additional BP control can be provided with the addition of PO or PRN Clonidine. BP Readings from Last 3 Encounters: 01/06/22 (!) 82/48 01/08/21 125/83 This patient has a known history of Pulmonary Embolism ( PE ) ( Z 86.711 ) in the past. They will require multi-modality treatments or interventions to prevent a reocurrence. This should include education on venous return exercises which have been provided by myself and will be emphasized with each follow-up interaction. In addition, aggressive goals for early ambulation and timely physical therapy for mobility and independence are recommended to help prevent a DVT. I recommend providing pharmacologic and non-pharmacologic prophylaxis per the ACCP Guidelines. This would include Lovenox, Arixtra, a New Oral Anticoagulant ( NOAC ) or a clinically proven equivalent. Ultimately, the final decision regarding anticoagulation for DVT prophylaxis / prevention will be per the discretion of the primary surgical service per protocol. Patient normally on Coumadin. Will need to be held for surgery but patient will require Bridge Lovenox therapy while medication on hold. INR 1.0 Chronic Obstructive Pulmonary Disease / COPD ( J 44.9 ) Chronic pre-existing condition present on admission. This patient denies any current symptoms or recent exacerbation. They will be at an increased risk of pulmonary complications related to surgery including bronchitis and pneumonia. I recommend patient continue their prescribed bronchodilators without interruption. This would include the morning of surgery in order to prevent bronchospasm or any hypoventilation during surgery, even if they are stable. I would also recommend close monitoring of lung function and frequent pulmonary auscultation following surgery to watch for any wheezing. Nebulized bronchodilators should be administered if necessary. Supplemental oxygen should be used as necessary to avoid hypoxia. Would recommend caution with the addition of any sedatives mediations or narcotics which can decrease respiratory drive and contribute to hypoventilation and hypoxia. This patient should also be monitored on continuous pulse oximetry ATC until confirmed stable. Early ambulation and mobility and incentive spirometry have also been shown to decrease pulmonary complications related to surgery, especially in patients with COPD. These interventions should be encouraged as soon as possible following surgery. Insomnia ( G 47.00 ). Chronic pre-existing condition present on admission. Controlled with specific sedative medications at bedtime as needed. It is acceptable to continue patient's usual medication for insomnia during the perioperative time-period but with precautions regarding the risk of adverse interactions with other sedatives or pain medications prescribed. Gastroesophageal Reflux / GERD ( K 21.9 ) Chronic pre-existing condition present on admission. Currently stable on a Proton Pump Inhibitor ( PPI ) for treatment. GERD can be exacerbated by surgery or anesthesia due to increased stress, delayed gastric emptying, and supine positioning. Plan to continue prescribed PPI +/- antihistamine before and after surgery for reduction of gastric acidity. Anxiety ( F 41.9 ) Chronic pre-existing condition present on admission. I have recommended the patient continue their prescribed anxiolytic medications without interruption where applicable. Generally these medications are not necessary the morning of surgery unless they are anxiolytics or sedatives the patient takes regularly in the morning and has a presumed dependency. Sedative-type anxiolytics can be resumed postoperatively but should be used with precaution given the potential for side-effects such as sedation, hypoxia, and hypoventilation when used concurrently with pain medications including narcotics. Acute Post-Hemorrhagic Anemia ( D 62) - consistent with acute blood loss anemia based on review of current Hemoglobin level, preoperative Hemoglobin level, and Estimated Blood Loss (EBL) with surgery. Mild to moderate. Patient currently without indications for blood transfusion but will require continued to monitoring in hospital with Pulse Oximetry, Continued Intravenous Fluids, Sequential Hemoglobin levels, Supplemental Oxygen to keep Sats >= 90%, and Monitoring of Vitals including HR and BP closely. Results from last 7 days Lab Units 01/05/22 0353 01/04/22452 HEMOGLOBIN g/dL 10.7* 10.8* HEMATOCRIT % 35.6 34.0* VITALS : Visit Vitals BP (!) 82/48 (BP Location: Right arm, Patient Position: Lying) Pulse 77 Temp 36.1 C (97 F) Resp 12 Ht 1.727 m (68 ) Wt 80.7 kg (177 lb 14.6 oz) SpO2 90% BMI 27.05 kg/m Smoking Status Former Smoker BSA 1.94 m PHYSICAL EXAM : General - No acute distress; Alert and conversational Skin - Normal skin turgor and texture; No rashes or ulcerations noted Eyes - PERRLA; Anicteric sclerae ENMT - Hearing Intact; Oropharynx clear with moist mucosa Cardiology - S1 S2 with regular rhythm. No tachycardia noted; No peripheral edema noted Respiratory - Clear to auscultate bilaterally; No accessory respiratory muscle use noted; No wheezing noted Abdominal - Non-tender to palpation; Soft and non-tender without obvious mass; Active bowel sounds noted No clinical evidence of postoperative ileus at this time Musculoskeletal - No clubbing of digits noted; No cyanosis of digits noted No calf tenderness noted on palpation Psychiatric - Appropriate affect, Alert and oriented to person, place, and situation RESULTS : LABS CBC Lab Results Component Value Date WBC 12.7 (H) 01/05/2022 HGB 10.7 (L) 01/05/2022 HCT 35.6 01/05/2022 MCV 105.0 (H) 01/05/2022 PLT 194 01/05/2022 Results from last 7 days Lab Units 01/05/223 01/04/22452 WBC AUTO K/mcL 12.7* 14.6* HEMOGLOBIN g/dL 10.7* 10.8* HEMATOCRIT % 35.6 34.0* PLATELETS K/mcL 194 271 LYMPHS PCT MAN % 20.0 19.0 LYMPHS PCT AUTO % 22.1 16.5* MONO PCT MAN % 8.0 9.0 MONO PCT AUTO % 12.2* 10.4 EOS PCT MAN % 1.0 -- EOS PCT AUTO % 2.3 0.5 CMP Lab Results Component Value Date NA 134 (L) 01/05/2022 K 5.1 01/05/2022 CL 103 01/05/2022 CO2 19 (L) 01/05/2022 BUN 34 (H) 01/05/2022 CREATININE 1.28 01/05/2022 GLUCOSE 99 01/05/2022 Results from last 7 days Lab Units 01/05/22 0353 01/04/22 0453 01/03/22 0724 SODIUM mmol/L 134* 133* -- POTASSIUM mmol/L 5.1 5.0 -- CHLORIDE mmol/L 103 103 -- CO2 mmol/L 19* 21* -- BUN mg/dL 34* 26* -- CREATININE mg/dL 1.28 1.00 -- POCT GLUCOSE mg/dL -- -- 144* GLUCOSE mg/dL 99 129* -- EGFR mL/min/1.73m2 44* 59* -- Results from last 7 days Lab Units 01/05/22 0353 01/04/22 0453 CALCIUM mg/dL 9.1 8.9 GLUCOSE 0 Lab Value Date/Time GLUCOSE 99 01/05/2022 0353 GLUCOSE 129 (H) 01/04/2022 0453 GLUCOSE 144 (H) 01/03/2022 0724 GLUCOSE 99 12/21/2021 0935 GLUCOSE 105 (H) 01/13/2021 0600 GLUCOSE 103 (H) 01/12/2021 0500 GLUCOSE 86 01/09/2021 0724 COAGULATION TESTS Results from last 7 days Lab Units 01/05/22 0924 01/04/22 0453 INR 1.0 0.9 LIPID PANEL THYROID TESTS No results found for: TSH URINE ANALYSIS No lab exists for component: [place] URINE CULTURE No results found for: URINECX BLOOD CULTURE No results found for: BLOODCX IMAGING XR CHEST 1 VIEW EXAMINATION TYPE: XR Chest 1 View DATE OF EXAM: 01/04/2021 11:36 AM HISTORY: Line placement COMPARISON: Radiograph dated 01/04/2021 FINDINGS: Right PICC is shown terminating in the superior vena cava. Streaky opacity is noted in the mid left lung. No pneumothorax or large pleural effusion identified. Cardiac silhouette is within normal limits for technique. No acute osseous findings. Prior left rib fractures. Right surgical clips. IMPRESSION: 1. Right PICC terminates in the superior vena cava. 2. Streaky opacity in the mid left lung, likely atelectasis or scarring. Ramy Santos thanks you for the opportunity to care for your patient. Workstation ID: [id number] Dictated By: Garo Albarado MD 01/04/2021 11:41 Assigned Physician: Garo lAbarado MD Reviewed and Electronically Signed By: Garo Albarado MD 01/04/2021 11:45 Transcribed by: STEW 01/04/2021 11:41 Technologist: CHIEF EXECUTIVE OR MANAGING DIRECTOR STRESS TEST No results found for this or any previous visit. ECHOCARDIOGRAM No results found for this or any previous visit. CATHETERIZATION No results found for this or any previous visit. ELECTROPHYSIOLOGY RESULT No results found for this or any previous visit. VASCULAR RESULT No results found for this or any previous visit. [facility] Orth[facility]edic Surgery Progress Note 3 Days Post-Op: Right total knee arthroplasty 19560 - [place] ARTHROPLASTY KNEE CONDYLE&PLATEAU MED/LAT CPTS W/WO PATELLA RESURFACING LOS: 0 days Subjective: Patient doing well. States that pain is tolerable with current regimen. Tolerating diet without nausea or vomiting. Objective: Last Recorded Vitals: Blood pressure (!) 143/82, pulse 92, temperature 37 C (98.6 F), temperature source Temporal, resp. rate 12, height 1.727 m (68 ), weight 80.7 kg (177 lb 14.6 oz), SpO2 90 %. Gen: comfortable, NAD Focused Musculoskeletal Exam: Surgical incision/dressing clean, dry, and intact. No drainage or swelling. Neurovascularly intact in the operative extremity. LABS: Lab Results Component Value Date WBC 12.7 (H) 01/05/2022 HGB 10.7 (L) 01/05/2022 HCT 35.6 01/05/2022 MCV 105.0 (H) 01/05/2022 PLT 194 01/05/2022 Lab Results Component Value Date GLUCOSE 99 01/05/2022 CALCIUM 9.1 01/05/2022 NA 134 (L) 01/05/2022 K 5.1 01/05/2022 CO2 19 (L) 01/05/2022 CL 103 01/05/2022 BUN 34 (H) 01/05/2022 CREATININE 1.28 01/05/2022 Lab Results Component Value Date INR 1.0 01/05/2022 INR 0.9 01/04/2022 INR 0.8 12/21/2021 No results found for: PTT Assessment & Plan 66 y.o. female 3 Days Post-Op status post Right total knee arthroplasty 51328 - [place] ARTHROPLASTY KNEE CONDYLE&PLATEAU MED/LAT CPTS W/WO PATELLA RESURFACING . - WBAT on the operative extremity - Lovenox bridge to Warfarin for DVT ppx - PT - Follow-up in clinic in 6 weeks - Plan for discharge to SNF when cleared by PT and medically stable Goals: Problem: Sensory: Goal: Demonstrates/reports adequate pain control Outcome: Progressing Problem: Coping: Goal: Verbalizations of alleviation of anxiety will increase Outcome: Progressing Problem: Cognitive: Goal: Knowledge of disease or condition will improve Outcome: Progressing Problem: Physical Regulation: Goal: Postoperative complications will be avoided or minimized Outcome: Progressing Goal: Ability to maintain clinical measurements within normal limits will improve Outcome: Progressing Problem: Skin Integrity: Goal: Patient will remain free of injury and skin integrity maintained Outcome: Progressing Problem: Health Behavior: Goal: Patient Specific Outcome Outcome: Progressing Problem: Sensory: Goal: Demonstrates/reports adequate pain control Outcome: Progressing Problem: Coping: Goal: Verbalizations of alleviation of anxiety will increase Outcome: Progressing Problem: Cognitive: Goal: Knowledge of disease or condition will improve Outcome: Progressing Problem: Physical Regulation: Goal: Postoperative complications will be avoided or minimized Outcome: Progressing Goal: Ability to maintain clinical measurements within normal limits will improve Outcome: Progressing Problem: Skin Integrity: Goal: Patient will remain free of injury and skin integrity maintained Outcome: Progressing Problem: Respiratory: Goal: Knowledge of LUPE (Obstructive Sleep Apnea) risk and follow-up will improve Outcome: Progressing Problem: Mobility Goal: Patient will ambulate Outcome: Progressing Problem: Sensory: Goal: Pain level will improve or be tolerable Outcome: Progressing Problem: Falls: Goal: Patient will not fall or injure themselves during hospitalization. Outcome: Progressing Identify possible barriers to meeting goals/advancing plan of care: Stability of the patient: Moderately Stable - Low risk of patient condition declining or worsening End of Shift Summary: Problem: Sensory: Goal: Demonstrates/reports adequate pain control Outcome: Progressing Problem: Coping: Goal: Verbalizations of alleviation of anxiety will increase Outcome: Progressing Problem: Cognitive: Goal: Knowledge of disease or condition will improve Outcome: Progressing Problem: Physical Regulation: Goal: Postoperative complications will be avoided or minimized Outcome: Progressing Goal: Ability to maintain clinical measurements within normal limits will improve Outcome: Progressing Problem: Skin Integrity: Goal: Patient will remain free of injury and skin integrity maintained Outcome: Progressing Problem: Health Behavior: Goal: Patient Specific Outcome Outcome: Progressing Problem: Sensory: Goal: Demonstrates/reports adequate pain control Outcome: Progressing Problem: Coping: Goal: Verbalizations of alleviation of anxiety will increase Outcome: Progressing Problem: Cognitive: Goal: Knowledge of disease or condition will improve Outcome: Progressing Problem: Physical Regulation: Goal: Postoperative complications will be avoided or minimized Outcome: Progressing Goal: Ability to maintain clinical measurements within normal limits will improve Outcome: Progressing Problem: Skin Integrity: Goal: Patient will remain free of injury and skin integrity maintained Outcome: Progressing Problem: Respiratory: Goal: Knowledge of LUPE (Obstructive Sleep Apnea) risk and follow-up will improve Outcome: Progressing Problem: Mobility Goal: Patient will ambulate Outcome: Progressing Problem: Sensory: Goal: Pain level will improve or be tolerable Outcome: Progressing Problem: Falls: Goal: Patient will not fall or injure themselves during hospitalization. Outcome: Progressing Goals: Control pain Identify possible barriers to meeting goals/advancing plan of care: none Stability of the patient: Moderately Stable - Low risk of patient condition declining or worsening End of Shift Summary: Patient continues to complain of pain. She reports greater pain while in bed compared to ambulating. Patient requested dilaudid frequently today. Educated patient on weaning off of IV medication and control pain with oral medication and adjunct therapy. Patient plans to discharge to an impatient unit or nursing home facility. [facility] Orth[facility]edic Surgery Progress Note 2 Days Post-Op: Right total knee arthroplasty 49665 - [place] ARTHROPLASTY KNEE CONDYLE&PLATEAU MED/LAT CPTS W/WO PATELLA RESURFACING LOS: 0 days Subjective: Patient doing well. States that pain is tolerable with current regimen. Tolerating diet without nausea or vomiting. Objective: Last Recorded Vitals: Blood pressure 123/77, pulse 88, temperature 37.2 C (98.9 F), temperature source Temporal, resp. rate 16, height 1.727 m (68 ), weight 80.7 kg (177 lb 14.6 oz), SpO2 94 %. Gen: comfortable, NAD Focused Musculoskeletal Exam: Surgical incision/dressing clean, dry, and intact. No drainage or swelling. Neurovascularly intact in the operative extremity. LABS: Lab Results Component Value Date WBC 12.7 (H) 01/05/2022 HGB 10.7 (L) 01/05/2022 HCT 35.6 01/05/2022 MCV 105.0 (H) 01/05/2022 PLT 194 01/05/2022 Lab Results Component Value Date GLUCOSE 99 01/05/2022 CALCIUM 9.1 01/05/2022 NA 134 (L) 01/05/2022 K 5.1 01/05/2022 CO2 19 (L) 01/05/2022 CL 103 01/05/2022 BUN 34 (H) 01/05/2022 CREATININE 1.28 01/05/2022 Lab Results Component Value Date INR 1.0 01/05/2022 INR 0.9 01/04/2022 INR 0.8 12/21/2021 No results found for: PTT Assessment & Plan 66 y.o. female 2 Days Post-Op status post Right total knee arthroplasty 96313 - [place] ARTHROPLASTY KNEE CONDYLE&PLATEAU MED/LAT CPTS W/WO PATELLA RESURFACING . - WBAT on the operative extremity - home coumadin, continue lovenox bridge, INR yesterday 0.9 for DVT ppx - PT - Follow-up in clinic in 6 weeks - Plan for discharge to Subacute Rehab Facility ([facility] or [facility]) when cleared by PT and medically stable Spoke to the patient and she called her brother who will be her transport and he wants to leave here by 0900am. Reached out to [facility] to complete Rx's for home meds. Pt sleeping soundly and did not rouse to name of knock. Will attempt again in am. Message left for Admissions Christy at [facility] cell [phone] and office [phone] Called [facility] and they [employer] provided Admissions cell of Christy [phone] Called her and she still does not have an answer from the admissions team and D.O.N. she will call when she knows. Physical Therapy Treatment PT Discharge Recommendations: intermediate facility placement, Inpatient rehab facility placement Distance Ambulated (ft): 35 Device: Rolling walker R Knee Flexion 0-140: 5-50 (sitting) * Calos Smith MD - Primary * Pramod Simpson DO - Fellow Procedure(s): Right total knee arthroplasty 2 Days Post-Op Fall prevention education provided including use of call light in hospital, use of appropriate assistive device, safe mobility techniques, and safety measures at home. Continue PT as per POC. Subjective Pt agreeable to treatment. Requesting this BARREL LATHE OPERATOR INSIDE move her LEs out of the bed. Education and instruction provided. Requesting bathroom urgently. Mobility noted below. At end of treatment pt sitting in chair awaiting lunch. Continue to follow until pt is d/c from [facility]. Vitals/Pain Pain Assessment Pain Assessment: 0-10 Pain Score: 5 - Moderate pain (pt notes increase when sitting or standing) Pain Location: Knee Pain Orientation: Right Objective General Visit Information: General Family/Caregiver Present: No Precautions Precautions Medical Precautions: Fall Risk Safety Interventions: Call espino within reach, Gait belt RLE Weight Bearing Status: Full General Assessments: Cognition Arousal/Alertness: Appropriate responses to stimuli Orientation Level: Oriented X4 Following Commands: Follows all commands and directions without difficulty Functional Assessments: Bed Mobility Bed Mobility Comments: CGA Transfers Sit to Stand Assistance: Contact guard Ambulation Walking Assistance: Contact guard Device: Rolling walker Distance Ambulated (ft): 35 Comments: slow step to with multiple rests Procedure/Treatment: Gait Training Gait Training Time Entry: 15 Gait Training Activity 1: gait training Gait Training Activity 2: walker placement Therapeutic Activity Therapeutic Activity Time Entry: 8 Therapeutic Activity 1: bed mob Therapeutic Activity 2: transfers Therapeutic Activity 3: toileting Therapeutic Exercise Therapeutic Exercise Time Entry: 17 Therapeutic Exercise Activity 1: HEP with mod/max assist (increased time) Assessment/Plan PT Assessment Prognosis: Good Medical Staff Made Aware: Yes Comments: RN notified pt sitting in chair for lunch and should be up OOB for all meals Plan PT Plan: Skilled PT PT Discharge Recommendations: intermediate facility placement, Inpatient rehab facility placement Goals: Encounter Problems Encounter Problems (Active) Template: Physical Therapy Problem: PT Short Term Goals Dates: Start: 01/03/22 Goal: Pt will ambulate 150 ft. with wheeled walker and SBA Dates: Start: 01/03/22 Expected End: 01/06/22 Outcomes Date/Time User Outcome 01/05/22 140Joe Kelley PTA Progressing Goal: Pt will perform bed mobility with SBA Dates: Start: 01/03/22 Expected End: 01/06/22 Outcomes Date/Time User Outcome 01/05/22 1406 Licha Kelley PTA Progressing Goal: Pt will transfer with SBA and FWW Dates: Start: 01/03/22 Expected End: 01/06/22 Outcomes Date/Time User Outcome 01/05/22 1406 Licha Kelley PTA Progressing Goal: Pt will demo good understanding of HEP protocol Dates: Start: 01/03/22 Expected End: 01/06/22 Outcomes Date/Time User Outcome 01/04/22 1451 Licha Kelley PTA Progressing Goal: Caregiver/patient will demonstrate safety precautions during mobility tasks with CGA Dates: Start: 01/03/22 Expected End: 01/06/22 Encounter Problems (Resolved) There are no resolved problems. Education Documentation Explain call button use, taught by Licha Kelley PTA at 01/05/2022 2:07 PM. Learner: Patient Readiness: Acceptance Method: Explanation, Demonstration Response: Verbalizes Understanding, Demonstrated Understanding Teach fall prevention measures, taught by Licha Kelley PTA at 01/05/2022 2:07 PM. Learner: Patient Readiness: Acceptance Method: Explanation, Demonstration Response: Verbalizes Understanding, Demonstrated Understanding Mobility Training, taught by Licha Kelley PTA at 01/05/2022 2:07 PM. Learner: Patient Readiness: Acceptance Method: Explanation, Demonstration Response: Verbalizes Understanding, Demonstrated Understanding Education Comments No comments found. Into see the patient and reviewed discharge plan to SNF. Awaiting to hear from [facility] for acceptance. Discussed transportation and her brother can transport. Encouraged IS as patient still needs to wean from oxygen. Message left for Admissions at [facility]. [phone] to see if they can accept. [facility] - PROGRESS NOTE Patient Name : Trinity Godinez Patient : 1955 Patient Diagnosis : Perioperative Medical Management Provider Name : Chong Hsieh MD Date Of Service : 01/05/22 Patient currently recovering POD#2. SUBJECTIVE : Pain control post-operatively : Incisional and operative pain appears to be controlled with current pain medication regimen. REVIEW OF SYSTEMS : Cardiovascular: Denies chest pain or pressure Respiratory: Denies shortness of breath or dyspnea Gastrointestinal: Denies abdominal cramping or distention.. Genitourinary: Denies urinary retention or incomplete voiding. Skin: Denies any new rash IMPRESSION AND PLAN : Prophylaxis For Prevention of Deep Vein Thrombosis ( DVT ) Prophylaxis should be based on the ACCP Guidelines and will be per surgeon's service per protocol. Management of NSAIDS, Anticoagulants, and Antibiotics will be per surgeon's service according to protocol. Patient should be encouraged regarding venous return exercises and ambulation. This patient will be considered acceptable for discharge from a medical perspective if the following criteria are met . . . 1. Oxygen Saturations > 90% on Room Air 2. Able to void without difficulty 3. Meets Physical Therapy goals for discharge 4. Passing Flatus 5. Cleared for discharge by surgeon and PT I have seen the patient personally today and reviewed the lab results section on this patient. This patient's medication list including their prescription drugs have been reviewed and specific recommendations as they relate to surgery and surgical recovery will be provided at discharge both verbally and in writing. A medical consult has been ordered by the surgeon for perioperative management of the patient's chronic medical conditions including the following . . . S/p Right TKR 01/03/22 Hypertension ( I 10 ) Chronic pre-existing condition present on admission. Currently being managed with standard anti-hypertensive medications. It should be noted that ROMA Inhibitors and ARBlockers and Diuretics are not normally given the morning of surgery due to the risks for perioperative hypotension. This patient's blood pressure will need to be monitored closely throughout their hospitalization since potential perioperative issues such as dehydration, pain level, and the use of anesthetics or pain medications can cause BP fluctuations. Additional BP control can be provided with the addition of PO or PRN Clonidine. BP Readings from Last 3 Encounters: 01/05/22 (!) 142/81 01/08/21 125/83 This patient has a known history of Pulmonary Embolism ( PE ) ( Z 86.711 ) in the past. They will require multi-modality treatments or interventions to prevent a reocurrence. This should include education on venous return exercises which have been provided by myself and will be emphasized with each follow-up interaction. In addition, aggressive goals for early ambulation and timely physical therapy for mobility and independence are recommended to help prevent a DVT. I recommend providing pharmacologic and non-pharmacologic prophylaxis per the ACCP Guidelines. This would include Lovenox, Arixtra, a New Oral Anticoagulant ( NOAC ) or a clinically proven equivalent. Ultimately, the final decision regarding anticoagulation for DVT prophylaxis / prevention will be per the discretion of the primary surgical service per protocol. Patient normally on Coumadin. Will need to be held for surgery but patient will require Bridge Lovenox therapy while medication on hold. INR 0.9 Chronic Obstructive Pulmonary Disease / COPD ( J 44.9 ) Chronic pre-existing condition present on admission. This patient denies any current symptoms or recent exacerbation. They will be at an increased risk of pulmonary complications related to surgery including bronchitis and pneumonia. I recommend patient continue their prescribed bronchodilators without interruption. This would include the morning of surgery in order to prevent bronchospasm or any hypoventilation during surgery, even if they are stable. I would also recommend close monitoring of lung function and frequent pulmonary auscultation following surgery to watch for any wheezing. Nebulized bronchodilators should be administered if necessary. Supplemental oxygen should be used as necessary to avoid hypoxia. Would recommend caution with the addition of any sedatives mediations or narcotics which can decrease respiratory drive and contribute to hypoventilation and hypoxia. This patient should also be monitored on continuous pulse oximetry ATC until confirmed stable. Early ambulation and mobility and incentive spirometry have also been shown to decrease pulmonary complications related to surgery, especially in patients with COPD. These interventions should be encouraged as soon as possible following surgery. Insomnia ( G 47.00 ). Chronic pre-existing condition present on admission. Controlled with specific sedative medications at bedtime as needed. It is acceptable to continue patient's usual medication for insomnia during the perioperative time-period but with precautions regarding the risk of adverse interactions with other sedatives or pain medications prescribed. Gastroesophageal Reflux / GERD ( K 21.9 ) Chronic pre-existing condition present on admission. Currently stable on a Proton Pump Inhibitor ( PPI ) for treatment. GERD can be exacerbated by surgery or anesthesia due to increased stress, delayed gastric emptying, and supine positioning. Plan to continue prescribed PPI +/- antihistamine before and after surgery for reduction of gastric acidity. Anxiety ( F 41.9 ) Chronic pre-existing condition present on admission. I have recommended the patient continue their prescribed anxiolytic medications without interruption where applicable. Generally these medications are not necessary the morning of surgery unless they are anxiolytics or sedatives the patient takes regularly in the morning and has a presumed dependency. Sedative-type anxiolytics can be resumed postoperatively but should be used with precaution given the potential for side-effects such as sedation, hypoxia, and hypoventilation when used concurrently with pain medications including narcotics. Acute Post-Hemorrhagic Anemia ( D 62) - consistent with acute blood loss anemia based on review of current Hemoglobin level, preoperative Hemoglobin level, and Estimated Blood Loss (EBL) with surgery. Mild to moderate. Patient currently without indications for blood transfusion but will require continued to monitoring in hospital with Pulse Oximetry, Continued Intravenous Fluids, Sequential Hemoglobin levels, Supplemental Oxygen to keep Sats >= 90%, and Monitoring of Vitals including HR and BP closely. Results from last 7 days Lab Units 01/05/22 0353 01/04/22 0453 HEMOGLOBIN g/dL 10.7* 10.8* HEMATOCRIT % 35.6 34.0* VITALS : Visit Vitals BP (!) 142/81 (BP Location: Left arm, Patient Position: Lying) Pulse 76 Temp 36.3 C (97.4 F) (Temporal) Resp 14 Ht 1.727 m (68 ) Wt 80.7 kg (177 lb 14.6 oz) SpO2 97% BMI 27.05 kg/m Smoking Status Former Smoker BSA 1.94 m PHYSICAL EXAM : General - No acute distress; Alert and conversational Skin - Normal skin turgor and texture; No rashes or ulcerations noted Eyes - PERRLA; Anicteric sclerae ENMT - Hearing Intact; Oropharynx clear with moist mucosa Cardiology - S1 S2 with regular rhythm. No tachycardia noted; No peripheral edema noted Respiratory - Clear to auscultate bilaterally; No accessory respiratory muscle use noted; No wheezing noted Abdominal - Non-tender to palpation; Soft and non-tender without obvious mass; Active bowel sounds noted No clinical evidence of postoperative ileus at this time Musculoskeletal - No clubbing of digits noted; No cyanosis of digits noted No calf tenderness noted on palpation Psychiatric - Appropriate affect, Alert and oriented to person, place, and situation RESULTS : LABS CBC Lab Results Component Value Date WBC 12.7 (H) 01/05/2022 HGB 10.7 (L) 01/05/2022 HCT 35.6 01/05/2022 MCV 105.0 (H) 01/05/2022 PLT 194 01/05/2022 Results from last 7 days Lab Units 01/05/22 0353 01/04/22 0453 WBC AUTO K/mcL 12.7* 14.6* HEMOGLOBIN g/dL 10.7* 10.8* HEMATOCRIT % 35.6 34.0* PLATELETS K/mcL 194 271 LYMPHS PCT MAN % 20.0 19.0 LYMPHS PCT AUTO % 22.1 16.5* MONO PCT MAN % 8.0 9.0 MONO PCT AUTO % 12.2* 10.4 EOS PCT MAN % 1.0 -- EOS PCT AUTO % 2.3 0.5 CMP Lab Results Component Value Date NA 134 (L) 01/05/2022 K 5.1 01/05/2022 CL 103 01/05/2022 CO2 19 (L) 01/05/2022 BUN 34 (H) 01/05/2022 CREATININE 1.28 01/05/2022 GLUCOSE 99 01/05/2022 Results from last 7 days Lab Units 01/05/22 0353 01/04/22 0453 01/03/22 0724 SODIUM mmol/L 134* 133* -- POTASSIUM mmol/L 5.1 5.0 -- CHLORIDE mmol/L 103 103 -- CO2 mmol/L 19* 21* -- BUN mg/dL 34* 26* -- CREATININE mg/dL 1.28 1.00 -- POCT GLUCOSE mg/dL -- -- 144* GLUCOSE mg/dL 99 129* -- EGFR mL/min/1.73m2 44* 59* -- Results from last 7 days Lab Units 01/05/22 0353 01/04/22 0453 CALCIUM mg/dL 9.1 8.9 GLUCOSE 0 Lab Value Date/Time GLUCOSE 99 01/05/2022 0353 GLUCOSE 129 (H) 01/04/2022 0453 GLUCOSE 144 (H) 01/03/2022 0724 GLUCOSE 99 12/21/2021 0935 GLUCOSE 105 (H) 01/13/2021 0600 GLUCOSE 103 (H) 01/12/2021 0500 GLUCOSE 86 01/09/2021 0724 COAGULATION TESTS Results from last 7 days Lab Units 01/04/22 0453 INR 0.9 LIPID PANEL THYROID TESTS No results found for: TSH URINE ANALYSIS No lab exists for component: [place] URINE CULTURE No results found for: URINECX BLOOD CULTURE No results found for: BLOODCX IMAGING XR CHEST 1 VIEW EXAMINATION TYPE: XR Chest 1 View DATE OF EXAM: 01/04/2021 11:36 AM HISTORY: Line placement COMPARISON: Radiograph dated 01/04/2021 FINDINGS: Right PICC is shown terminating in the superior vena cava. Streaky opacity is noted in the mid left lung. No pneumothorax or large pleural effusion identified. Cardiac silhouette is within normal limits for technique. No acute osseous findings. Prior left rib fractures. Right surgical clips. IMPRESSION: 1. Right PICC terminates in the superior vena cava. 2. Streaky opacity in the mid left lung, likely atelectasis or scarring. Ramy Santos thanks you for the opportunity to care for your patient. Workstation ID: [id number] - [id number] Dictated By: Garo Albarado MD 01/04/2021 11:41 Assigned Physician: Garo Albarado MD Reviewed and Electronically Signed By: Garo Albarado MD 01/04/2021 11:45 Transcribed by: STEW 01/04/2021 11:41 Technologist: RAQUEL STRESS TEST No results found for this or any previous visit. ECHOCARDIOGRAM No results found for this or any previous visit. CATHETERIZATION No results found for this or any previous visit. ELECTROPHYSIOLOGY RESULT No results found for this or any previous visit. VASCULAR RESULT No results found for this or any previous visit. Goals: Problem: Sensory: Goal: Demonstrates/reports adequate pain control Outcome: Progressing Problem: Coping: Goal: Verbalizations of alleviation of anxiety will increase Outcome: Progressing Problem: Cognitive: Goal: Knowledge of disease or condition will improve Outcome: Progressing Problem: Physical Regulation: Goal: Postoperative complications will be avoided or minimized Outcome: Progressing Goal: Ability to maintain clinical measurements within normal limits will improve Outcome: Progressing Problem: Skin Integrity: Goal: Patient will remain free of injury and skin integrity maintained Outcome: Progressing Problem: Health Behavior: Goal: Patient Specific Outcome Outcome: Progressing Problem: Sensory: Goal: Demonstrates/reports adequate pain control Outcome: Progressing Problem: Coping: Goal: Verbalizations of alleviation of anxiety will increase Outcome: Progressing Problem: Cognitive: Goal: Knowledge of disease or condition will improve Outcome: Progressing Problem: Physical Regulation: Goal: Postoperative complications will be avoided or minimized Outcome: Progressing Goal: Ability to maintain clinical measurements within normal limits will improve Outcome: Progressing Problem: Skin Integrity: Goal: Patient will remain free of injury and skin integrity maintained Outcome: Progressing Problem: Respiratory: Goal: Knowledge of LUPE (Obstructive Sleep Apnea) risk and follow-up will improve Outcome: Progressing Problem: Mobility Goal: Patient will ambulate Outcome: Progressing Problem: Sensory: Goal: Pain level will improve or be tolerable Outcome: Progressing Problem: Falls: Goal: Patient will not fall or injure themselves during hospitalization. Outcome: Progressing Identify possible barriers to meeting goals/advancing plan of care: Stability of the patient: Moderately Stable - Low risk of patient condition declining or worsening End of Shift Summary: Pt progressing towards all discharge goals. Problem: Sensory: Goal: Demonstrates/reports adequate pain control Outcome: Progressing Problem: Coping: Goal: Verbalizations of alleviation of anxiety will increase Outcome: Progressing Problem: Cognitive: Goal: Knowledge of disease or condition will improve Outcome: Progressing Problem: Physical Regulation: Goal: Postoperative complications will be avoided or minimized Outcome: Progressing Goal: Ability to maintain clinical measurements within normal limits will improve Outcome: Progressing Problem: Skin Integrity: Goal: Patient will remain free of injury and skin integrity maintained Outcome: Progressing Problem: Health Behavior: Goal: Patient Specific Outcome Outcome: Progressing Problem: Sensory: Goal: Demonstrates/reports adequate pain control Outcome: Progressing Problem: Coping: Goal: Verbalizations of alleviation of anxiety will increase Outcome: Progressing Problem: Cognitive: Goal: Knowledge of disease or condition will improve Outcome: Progressing Problem: Physical Regulation: Goal: Postoperative complications will be avoided or minimized Outcome: Progressing Goal: Ability to maintain clinical measurements within normal limits will improve Outcome: Progressing Problem: Skin Integrity: Goal: Patient will remain free of injury and skin integrity maintained Outcome: Progressing Problem: Respiratory: Goal: Knowledge of LUPE (Obstructive Sleep Apnea) risk and follow-up will improve Outcome: Progressing Problem: Mobility Goal: Patient will ambulate Outcome: Progressing Problem: Sensory: Goal: Pain level will improve or be tolerable Outcome: Progressing Problem: Falls: Goal: Patient will not fall or injure themselves during hospitalization. Outcome: Progressing Goals: Control pain and improve mobility Identify possible barriers to meeting goals/advancing plan of care: patient's pain tolerance Stability of the patient: Moderately Stable - Low risk of patient condition declining or worsening End of Shift Summary: Patient has noted minimal control of pain this shift. She notes right knee pain that subsides briefly with pain medication. Patient experienced low blood pressure following blood pressure medication administration. Patient presents with weakness right lower extremity. Bilateral lower extremities are swollen. Patient plans to discharge to an inpatient unit or nursing home facility. NN met with the pt at bedside. Pt would like a referral sent to [facility]. She will continue to review the list for choices 2 and 3 in the event [facility] cannot accept. Referral sent via [employer] Fax. 01/04/22 1531 Clinical Encounter Type Visited With Patient Time Spent 20 Minutes Type of Contact Introduction SPIRITUAL CARE ASSESSMENT Spiritual Care Assessment: Pt appropriate and coping peaceful and positive cal[place]on and family are supportive Spiritual Intervention: Active listening Discuss coping style Hospitality provided [place] given Outcome: Pt shared feelings and values expressed gratitude Plan: PC will return at pt/family request. CM received IB call from Cori with [facility]. They do not have bed availability for patient until at least next Sunday. CM will print Medicare SNF list and provide to patient for subsequent choices. Physical Therapy Treatment PT Discharge Recommendations: intermediate facility placement, Inpatient rehab facility placement Distance Ambulated (ft): 30 (increased time) Device: Rolling walker R Knee Flexion 0-140: 5-45 * Calos Smith MD - Primary * Pramod Simpson DO - Fellow Procedure(s): Right total knee arthroplasty 1 Day Post-Op Fall prevention education provided including use of call light in hospital, use of appropriate assistive device, safe mobility techniques, and safety measures at home. Continue PT as per POC. Subjective Pt in bed upon arrival to room. Agreeable to treatment. Increased time for all mobility required. HEP completed with mod/max assist. Mobility noted below. [place] pillow placed at right foot to assist in pt right LE positioning as pt position of comfort is with external rotation and knee slightly bent. Education provided. Continue as per PT POC until pt is d/c from [facility]. Vitals/Pain Pain Assessment Pain Assessment: 0-10 Pain Score: 6 Pain Location: Knee Pain Orientation: Right Objective General Visit Information: General Family/Caregiver Present: No Precautions Precautions Medical Precautions: Fall Risk Safety Interventions: Call espino within reach, Gait belt RLE Weight Bearing Status: Full General Assessments: Cognition Arousal/Alertness: Appropriate responses to stimuli Orientation Level: Oriented X4 Following Commands: Follows all commands and directions without difficulty Functional Assessments: Bed Mobility Bed Mobility Comments: CGA (increased time) Transfers Sit to Stand Assistance: Contact guard Ambulation Walking Assistance: Contact guard Device: Rolling walker Distance Ambulated (ft): 30 (increased time) Comments: slow step to with multiple rests Procedure/Treatment: Gait Training Gait Training Time Entry: 15 Gait Training Activity 1: gait training Gait Training Activity 2: walker placement Therapeutic Activity Therapeutic Activity Time Entry: 15 Therapeutic Activity 1: bed mob Therapeutic Activity 2: transfers Therapeutic Activity 3: education regarding importance of mobility Therapeutic Exercise Therapeutic Exercise Time Entry: 17 Therapeutic Exercise Activity 1: HEP with mod/max assist (increased time) Assessment/Plan PT Assessment Prognosis: Good Evaluation/Treatment Tolerance: Patient limited by pain Medical Staff Made Aware: Yes Comments: RN notified that pt with increased pain and asking for meds Plan PT Plan: Skilled PT PT Discharge Recommendations: intermediate facility placement, Inpatient rehab facility placement Goals: Encounter Problems Encounter Problems (Active) Template: Physical Therapy Problem: PT Short Term Goals Dates: Start: 01/03/22 Goal: Pt will ambulate 150 ft. with wheeled walker and SBA Dates: Start: 01/03/22 Expected End: 01/06/22 Outcomes Date/Time User Outcome 01/04/22 1451 Licha Kelley PTA Progressing Goal: Pt will perform bed mobility with SBA Dates: Start: 01/03/22 Expected End: 01/06/22 Outcomes Date/Time User Outcome 01/04/22 145Sugar Kelley PTA Progressing Goal: Pt will transfer with SBA and FWW Dates: Start: 01/03/22 Expected End: 01/06/22 Outcomes Date/Time User Outcome 01/04/22 145Sugar Kelley PTA Progressing Goal: Pt will demo good understanding of HEP protocol Dates: Start: 01/03/22 Expected End: 01/06/22 Outcomes Date/Time User Outcome 01/04/22 145Sugar Kelley PTA Progressing Goal: Caregiver/patient will demonstrate safety precautions during mobility tasks with CGA Dates: Start: 01/03/22 Expected End: 01/06/22 Encounter Problems (Resolved) There are no resolved problems. Education Documentation Explain call button use, taught by Licha Kelley PTA at 01/04/2022 2:51 PM. Learner: Patient Readiness: Acceptance Method: Explanation, Demonstration Response: Verbalizes Understanding, Needs Reinforcement Teach fall prevention measures, taught by Licha Kelley PTA at 01/04/2022 2:51 PM. Learner: Patient Readiness: Acceptance Method: Explanation, Demonstration Response: Verbalizes Understanding, Needs Reinforcement Home Exercise Program, taught by Licha Kelley PTA at 01/04/2022 2:51 PM. Learner: Patient Readiness: Acceptance Method: Explanation, Demonstration Response: Verbalizes Understanding, Needs Reinforcement Mobility Training, taught by Licha Kelley PTA at 01/04/2022 2:51 PM. Learner: Patient Readiness: Acceptance Method: Explanation, Demonstration Response: Verbalizes Understanding, Needs Reinforcement Explain call button use, taught by Licha Kelley PTA at 01/04/2022 1:48 PM. Learner: Patient Readiness: Acceptance Method: Explanation, Demonstration Response: Verbalizes Understanding, Needs Reinforcement Teach fall prevention measures, taught by Licha Kelley PTA at 01/04/2022 1:48 PM. Learner: Patient Readiness: Acceptance Method: Explanation, Demonstration Response: Verbalizes Understanding, Needs Reinforcement Home Exercise Program, taught by Licha Kelley PTA at 01/04/2022 1:48 PM. Learner: Patient Readiness: Acceptance Method: Explanation, Demonstration Response: Verbalizes Understanding, Needs Reinforcement Mobility Training, taught by Licha Kelley PTA at 01/04/2022 1:48 PM. Learner: Patient Readiness: Acceptance Method: Explanation, Demonstration Response: Verbalizes Understanding, Needs Reinforcement Education Comments No comments found. Voice message left for Cori [phone] at [facility]. NN inquiring about the status of referral. CM phone number provided for a return call. Physical Therapy Treatment PT Discharge Recommendations: Inpatient rehab facility placement, intermediate facility placement Distance Ambulated (ft): 30 Device: Rolling walker R Knee Flexion 0-140: 10-40 (sitting) * Calos Smith MD - Primary * Pramod Simpson DO - Fellow Procedure(s): Right total knee arthroplasty 1 Day Post-Op Fall prevention education provided including use of call light in hospital, use of appropriate assistive device, safe mobility techniques, and safety measures at home. Continue PT as per POC. Subjective Pt in bed. Reluctant to participate 2/2 pain. Asking for That IV pain medicine . RN aware. Ambulated in room and returned to bed. ther ex not completed 2/2 pain and fatigue. Will attempt in pm. Vitals/Pain Pain Assessment Pain Assessment: 0-10 Pain Score: 9 Pain Location: Knee Pain Orientation: Right Objective General Visit Information: General Family/Caregiver Present: No Precautions Precautions Medical Precautions: Fall Risk Safety Interventions: Call espino within reach, Gait belt RLE Weight Bearing Status: Full General Assessments: Cognition Arousal/Alertness: Appropriate responses to stimuli Orientation Level: Oriented X4 Following Commands: Follows all commands and directions without difficulty Functional Assessments: Bed Mobility Bed Mobility Comments: CGA (max encouragment provided) Transfers Sit to Stand Assistance: Contact guard Ambulation Walking Assistance: Contact guard Device: Rolling walker Distance Ambulated (ft): 30 Comments: slow step to with multiple rests Procedure/Treatment: Gait Training Gait Training Time Entry: 13 Gait Training Activity 1: gait training Therapeutic Activity Therapeutic Activity Time Entry: 10 Therapeutic Activity 1: bed mob Therapeutic Activity 2: trasnfers Therapeutic Activity 3: education on importance of HEP Assessment/Plan PT Assessment Prognosis: Good Evaluation/Treatment Tolerance: Patient limited by pain Medical Staff Made Aware: Yes Comments: RN notified that pt with increased pain and asking for meds Plan PT Plan: Skilled PT PT Discharge Recommendations: Inpatient rehab facility placement, intermediate facility placement Goals: Encounter Problems Encounter Problems (Active) Template: Physical Therapy Problem: PT Short Term Goals Dates: Start: 01/03/22 Goal: Pt will ambulate 150 ft. with wheeled walker and SBA Dates: Start: 01/03/22 Expected End: 01/06/22 Outcomes Date/Time User Outcome 01/04/22 1348 Licha Kelley PTA Progressing Goal: Pt will perform bed mobility with SBA Dates: Start: 01/03/22 Expected End: 01/06/22 Outcomes Date/Time User Outcome 01/04/22 1348 Licha Kelley PTA Progressing Goal: Pt will transfer with SBA and FWW Dates: Start: 01/03/22 Expected End: 01/06/22 Outcomes Date/Time User Outcome 01/04/22 1348 Licha Kelley PTA Progressing Goal: Pt will demo good understanding of HEP protocol Dates: Start: 01/03/22 Expected End: 01/06/22 Outcomes Date/Time User Outcome 01/04/22 1348 Licha Kelley PTA Not Progressing Goal: Caregiver/patient will demonstrate safety precautions during mobility tasks with CGA Dates: Start: 01/03/22 Expected End: 01/06/22 Encounter Problems (Resolved) There are no resolved problems. Education Documentation Explain call button use, taught by Lihca Kelley PTA at 01/04/2022 1:48 PM. Learner: Patient Readiness: Acceptance Method: Explanation, Demonstration Response: Verbalizes Understanding, Needs Reinforcement Teach fall prevention measures, taught by Licha Kelley PTA at 01/04/2022 1:48 PM. Learner: Patient Readiness: Acceptance Method: Explanation, Demonstration Response: Verbalizes Understanding, Needs Reinforcement Home Exercise Program, taught by Licha Kelley PTA at 01/04/2022 1:48 PM. Learner: Patient Readiness: Acceptance Method: Explanation, Demonstration Response: Verbalizes Understanding, Needs Reinforcement Mobility Training, taught by Licha Kelley PTA at 01/04/2022 1:48 PM. Learner: Patient Readiness: Acceptance Method: Explanation, Demonstration Response: Verbalizes Understanding, Needs Reinforcement Education Comments No comments found. [facility] - PROGRESS NOTE Patient Name : Trinity Godinez Patient : 1955 Patient Diagnosis : Perioperative Medical Management Provider Name : Chong Hsieh MD Date Of Service : 01/04/22 Patient currently recovering POD#1. SUBJECTIVE : Pain control post-operatively : Incisional and operative pain appears to be controlled with current pain medication regimen. REVIEW OF SYSTEMS : Cardiovascular: Denies chest pain or pressure Respiratory: Denies shortness of breath or dyspnea Gastrointestinal: Denies abdominal cramping or distention.. Genitourinary: Denies urinary retention or incomplete voiding. Skin: Denies any new rash IMPRESSION AND PLAN : Prophylaxis For Prevention of Deep Vein Thrombosis ( DVT ) Prophylaxis should be based on the ACCP Guidelines and will be per surgeon's service per protocol. Management of NSAIDS, Anticoagulants, and Antibiotics will be per surgeon's service according to protocol. Patient should be encouraged regarding venous return exercises and ambulation. This patient will be considered acceptable for discharge from a medical perspective if the following criteria are met . . . 1. Oxygen Saturations > 90% on Room Air 2. Able to void without difficulty 3. Meets Physical Therapy goals for discharge 4. Passing Flatus 5. Cleared for discharge by surgeon and PT I have seen the patient personally today and reviewed the lab results section on this patient. This patient's medication list including their prescription drugs have been reviewed and specific recommendations as they relate to surgery and surgical recovery will be provided at discharge both verbally and in writing. A medical consult has been ordered by the surgeon for perioperative management of the patient's chronic medical conditions including the following . . . S/p Right TKR 01/03/22 Hypertension ( I 10 ) Chronic pre-existing condition present on admission. Currently being managed with standard anti-hypertensive medications. It should be noted that ROMA Inhibitors and ARBlockers and Diuretics are not normally given the morning of surgery due to the risks for perioperative hypotension. This patient's blood pressure will need to be monitored closely throughout their hospitalization since potential perioperative issues such as dehydration, pain level, and the use of anesthetics or pain medications can cause BP fluctuations. Additional BP control can be provided with the addition of PO or PRN Clonidine. BP Readings from Last 3 Encounters: 01/04/22 116/72 01/08/21 125/83 This patient has a known history of Pulmonary Embolism ( PE ) ( Z 86.711 ) in the past. They will require multi-modality treatments or interventions to prevent a reocurrence. This should include education on venous return exercises which have been provided by myself and will be emphasized with each follow-up interaction. In addition, aggressive goals for early ambulation and timely physical therapy for mobility and independence are recommended to help prevent a DVT. I recommend providing pharmacologic and non-pharmacologic prophylaxis per the ACCP Guidelines. This would include Lovenox, Arixtra, a New Oral Anticoagulant ( NOAC ) or a clinically proven equivalent. Ultimately, the final decision regarding anticoagulation for DVT prophylaxis / prevention will be per the discretion of the primary surgical service per protocol. Patient normally on Coumadin. Will need to be held for surgery but patient will require Bridge Lovenox therapy while medication on hold. Chronic Obstructive Pulmonary Disease / COPD ( J 44.9 ) Chronic pre-existing condition present on admission. This patient denies any current symptoms or recent exacerbation. They will be at an increased risk of pulmonary complications related to surgery including bronchitis and pneumonia. I recommend patient continue their prescribed bronchodilators without interruption. This would include the morning of surgery in order to prevent bronchospasm or any hypoventilation during surgery, even if they are stable. I would also recommend close monitoring of lung function and frequent pulmonary auscultation following surgery to watch for any wheezing. Nebulized bronchodilators should be administered if necessary. Supplemental oxygen should be used as necessary to avoid hypoxia. Would recommend caution with the addition of any sedatives mediations or narcotics which can decrease respiratory drive and contribute to hypoventilation and hypoxia. This patient should also be monitored on continuous pulse oximetry ATC until confirmed stable. Early ambulation and mobility and incentive spirometry have also been shown to decrease pulmonary complications related to surgery, especially in patients with COPD. These interventions should be encouraged as soon as possible following surgery. Insomnia ( G 47.00 ). Chronic pre-existing condition present on admission. Controlled with specific sedative medications at bedtime as needed. It is acceptable to continue patient's usual medication for insomnia during the perioperative time-period but with precautions regarding the risk of adverse interactions with other sedatives or pain medications prescribed. Gastroesophageal Reflux / GERD ( K 21.9 ) Chronic pre-existing condition present on admission. Currently stable on a Proton Pump Inhibitor ( PPI ) for treatment. GERD can be exacerbated by surgery or anesthesia due to increased stress, delayed gastric emptying, and supine positioning. Plan to continue prescribed PPI +/- antihistamine before and after surgery for reduction of gastric acidity. Anxiety ( F 41.9 ) Chronic pre-existing condition present on admission. I have recommended the patient continue their prescribed anxiolytic medications without interruption where applicable. Generally these medications are not necessary the morning of surgery unless they are anxiolytics or sedatives the patient takes regularly in the morning and has a presumed dependency. Sedative-type anxiolytics can be resumed postoperatively but should be used with precaution given the potential for side-effects such as sedation, hypoxia, and hypoventilation when used concurrently with pain medications including narcotics. Acute Post-Hemorrhagic Anemia ( D 62) - consistent with acute blood loss anemia based on review of current Hemoglobin level, preoperative Hemoglobin level, and Estimated Blood Loss (EBL) with surgery. Mild to moderate. Patient currently without indications for blood transfusion but will require continued to monitoring in hospital with Pulse Oximetry, Continued Intravenous Fluids, Sequential Hemoglobin levels, Supplemental Oxygen to keep Sats >= 90%, and Monitoring of Vitals including HR and BP closely. Results from last 7 days Lab Units 01/04/22 0453 HEMOGLOBIN g/dL 10.8* HEMATOCRIT % 34.0* VITALS : Visit Vitals BP 116/72 (BP Location: Left arm, Patient Position: Lying) Pulse 66 Temp 36.6 C (97.9 F) (Temporal) Resp 14 Ht 1.727 m (68 ) Wt 80.7 kg (177 lb 14.6 oz) SpO2 99% BMI 27.05 kg/m Smoking Status Former Smoker BSA 1.94 m PHYSICAL EXAM : General - No acute distress; Alert and conversational Skin - Normal skin turgor and texture; No rashes or ulcerations noted Eyes - PERRLA; Anicteric sclerae ENMT - Hearing Intact; Oropharynx clear with moist mucosa Cardiology - S1 S2 with regular rhythm. No tachycardia noted; No peripheral edema noted Respiratory - Clear to auscultate bilaterally; No accessory respiratory muscle use noted; No wheezing noted Abdominal - Non-tender to palpation; Soft and non-tender without obvious mass; Active bowel sounds noted No clinical evidence of postoperative ileus at this time Musculoskeletal - No clubbing of digits noted; No cyanosis of digits noted No calf tenderness noted on palpation Psychiatric - Appropriate affect, Alert and oriented to person, place, and situation RESULTS : LABS CBC Lab Results Component Value Date WBC 14.6 (H) 01/04/2022 HGB 10.8 (L) 01/04/2022 HCT 34.0 (L) 01/04/2022 MCV 100.3 (H) 01/04/2022 PLT 271 01/04/2022 Results from last 7 days Lab Units 01/04/22 0453 WBC AUTO K/mcL 14.6* HEMOGLOBIN g/dL 10.8* HEMATOCRIT % 34.0* PLATELETS K/mcL 271 LYMPHS PCT MAN % 19.0 LYMPHS PCT AUTO % 16.5* MONO PCT MAN % 9.0 MONO PCT AUTO % 10.4 EOS PCT AUTO % 0.5 CMP Lab Results Component Value Date NA 133 (L) 01/04/2022 K 5.0 01/04/2022 CL 103 01/04/2022 CO2 21 (L) 01/04/2022 BUN 26 (H) 01/04/2022 CREATININE 1.00 01/04/2022 GLUCOSE 129 (H) 01/04/2022 Results from last 7 days Lab Units 01/04/22 0453 01/03/22 0724 SODIUM mmol/L 133* -- POTASSIUM mmol/L 5.0 -- CHLORIDE mmol/L 103 -- CO2 mmol/L 21* -- BUN mg/dL 26* -- CREATININE mg/dL 1.00 -- POCT GLUCOSE mg/dL -- 144* GLUCOSE mg/dL 129* -- EGFR mL/min/1.73m2 59* -- Results from last 7 days Lab Units 01/04/22 0453 CALCIUM mg/dL 8.9 GLUCOSE 0 Lab Value Date/Time GLUCOSE 129 (H) 01/04/2022 0453 GLUCOSE 144 (H) 01/03/2022 0724 GLUCOSE 99 12/21/2021 0935 GLUCOSE 105 (H) 01/13/2021 0600 GLUCOSE 103 (H) 01/12/2021 0500 GLUCOSE 86 01/09/2021 0724 COAGULATION TESTS Results from last 7 days Lab Units 01/04/22 0453 INR 0.9 LIPID PANEL THYROID TESTS No results found for: TSH URINE ANALYSIS No lab exists for component: [place] URINE CULTURE No results found for: URINECX BLOOD CULTURE No results found for: BLOODCX IMAGING XR CHEST 1 VIEW EXAMINATION TYPE: XR Chest 1 View DATE OF EXAM: 01/04/2021 11:36 AM HISTORY: Line placement COMPARISON: Radiograph dated 01/04/2021 FINDINGS: Right PICC is shown terminating in the superior vena cava. Streaky opacity is noted in the mid left lung. No pneumothorax or large pleural effusion identified. Cardiac silhouette is within normal limits for technique. No acute osseous findings. Prior left rib fractures. Right surgical clips. IMPRESSION: 1. Right PICC terminates in the superior vena cava. 2. Streaky opacity in the mid left lung, likely atelectasis or scarring. Ramy Santos thanks you for the opportunity to care for your patient. Workstation ID: [id number] - [id number] Dictated By: Garo Albarado MD 01/04/2021 11:41 Assigned Physician: Garo Albarado MD Reviewed and Electronically Signed By: Garo Albarado MD 01/04/2021 11:45 Transcribed by: STEW 01/04/2021 11:41 Technologist: CHIEF EXECUTIVE OR MANAGING DIRECTOR STRESS TEST No results found for this or any previous visit. ECHOCARDIOGRAM No results found for this or any previous visit. CATHETERIZATION No results found for this or any previous visit. ELECTROPHYSIOLOGY RESULT No results found for this or any previous visit. VASCULAR RESULT No results found for this or any previous visit. NN rounded with Dr. Smith, Dr. Simpson, and Radha PT. PT/Mobility-WBAT on the operative extremity. Activity progression with PT. Anticoag: Resume home coumadin. + Lovenox until therapeutic. Plan for discharge to IPR/SNF once PT/nursing goals have been met and the pt is cleared by Gen [facility] Orthopaedic Surgery Progress Note 1 Day Post-Op: Right total knee arthroplasty 00775 - [place] ARTHROPLASTY KNEE CONDYLE&PLATEAU MED/LAT CPTS W/WO PATELLA RESURFACING LOS: 0 days Subjective: Patient doing well. States that pain is tolerable with current regimen. Tolerating diet without nausea or vomiting. Objective: Last Recorded Vitals: Blood pressure 116/72, pulse 66, temperature 36.6 C (97.9 F), temperature source Temporal, resp. rate 14, height 1.727 m (68 ), weight 80.7 kg (177 lb 14.6 oz), SpO2 99 %. Gen: comfortable, NAD Focused Musculoskeletal Exam: Surgical incision/dressing clean, dry, and intact. No drainage or swelling. Neurovascularly intact in the operative extremity. LABS: Lab Results Component Value Date WBC 14.6 (H) 01/04/2022 HGB 10.8 (L) 01/04/2022 HCT 34.0 (L) 01/04/2022 MCV 100.3 (H) 01/04/2022 PLT 271 01/04/2022 Lab Results Component Value Date GLUCOSE 129 (H) 01/04/2022 CALCIUM 8.9 01/04/2022 NA 133 (L) 01/04/2022 K 5.0 01/04/2022 CO2 21 (L) 01/04/2022 CL 103 01/04/2022 BUN 26 (H) 01/04/2022 CREATININE 1.00 01/04/2022 Lab Results Component Value Date INR 0.9 01/04/2022 INR 0.8 12/21/2021 INR 1.7 01/14/2021 No results found for: PTT Assessment & Plan 66 y.o. female 1 Day Post-Op status post Right total knee arthroplasty [id number] - [place] ARTHROPLASTY KNEE CONDYLE&PLATEAU MED/LAT CPTS W/WO PATELLA RESURFACING . - WBAT on the operative extremity - Resume home coumadin. + Lovenox until theurapeutic for DVT ppx - PT - Follow-up in clinic in 6 weeks - Plan for discharge to Home when cleared by PT and medically stable IPR confirmed they have received the referral. Number provided for Cori tomorrow to acquire update of needed. # [phone] PT note is in and this CM faxed the referral to the requested IPR for review Physical Therapy Physical Therapy Evaluation PT Discharge Recommendations: intermediate facility placement Distance Ambulated (ft): 30 Device: Rolling walker RLE Weight Bearing Status: Full R Knee Flexion 0-140: 5 - 55 Strength RLE R Knee Flexion: 3/5 R Knee Extension: 3/5 R Ankle Dorsiflexion: 5/5 R Ankle Plantar Flexion: 5/5 AM-PAC: * Calos Smith MD - Primary * Pramod Simpson DO - Fellow Procedure(s): Right total knee arthroplasty Day of Surgery Fall prevention education provided including use of call light in hospital, use of appropriate assistive device, safe mobility techniques, and safety measures at home. Continue PT as per POC. PT eval completed, DOS, s/p R TKA per Dr. Smith. Pt. Supine in bed with dVT pumps on. Pt. Has maureen. PT educated pt. Christal HIGHTOWER. See below for pts. Status. Pt. Returned to supine with all items in reach. Ice to R knee. Pt. Plans to discharge to [facility] as lives alone. Pt. Has 5 steps charity. Rails to enter home. Continue PT tx. Per POC. Patient Active Problem List Diagnosis Pain management Unilateral primary osteoarthritis, right knee S/P TKR (total knee replacement), right Past Medical History: Diagnosis Date Anxiety Arthritis COPD (chronic obstructive pulmonary disease) ([facility]) Hypertension Pulmonary embolism ([facility]) Wears dentures Wears glasses Past Surgical History: Procedure Laterality Date APPENDECTOMY HIP ARTHROPLASTY HYSTERECTOMY KNEE ARTHROPLASTY OTHER SURGICAL HISTORY ulnar nerve removed right arm OTHER SURGICAL HISTORY right rib resected TONSILLECTOMY Vitals/Pain: Pain Assessment Pain Assessment: 0-10 Pain Score: 8 Pain Type: Surgical pain Pain Location: Knee Pain Orientation: Right Pain Interventions: Cold applied, Repositioned, Ambulation/increased activity Objective General Visit Information: General Family/Caregiver Present: No Precautions: Precautions Medical Precautions: Fall Risk Safety Interventions: Call espino within reach, Gait belt RLE Weight Bearing Status: Full Cognition: Cognition Orientation Level: Oriented X4 Home Living: Home Living Type of Home: House Lives With: Alone Home Adaptive Equipment: Walker - rolling Home Layout: One level Home Access: Stairs to enter with rails Entrance Stairs-Rails: Rail on both sides Entrance Stairs-Number of Steps: 5 Prior Level of Function: Prior Function Level of [place]: Independent with mobility and functional transfers Receives Help From: Family Which is your dominant hand?: Right General Assessments: Activity Tolerance Activity Tolerance Comments: fair Cognition Orientation Level: Oriented X4 Dynamic Standing Balance Dynamic Standing-Level of Assistance: Minimum assistance Dynamic Standing-Balance Support: Right upper extremity supported, Left upper extremity supported Dynamic Standing-Comments: support of FWW Functional Assessments: Bed Mobility Sitting to Lying Assistance: Minimum assistance, Minimal verbal cues Lying to Sitting Assistance: Minimum assistance, Minimal verbal cues Transfers Sit to Stand Assistance: Minimum assistance, Minimal verbal cues Sit to Stand Deficit: Verbal cueing, Supervision/safety awareness Ambulation Walking Assistance: Minimum assistance, Minimal verbal cues Walking Deficit: Verbal cueing, Supervision/safety awareness, Steadying Device: Rolling walker Distance Ambulated (ft): 30 Comments: slow antalgic r gait Stairs Reason(s) not performed:: Due to safety concerns (Comment) Extremity Assessments: RLE Assessment RLE Assessment: Impaired Additional Assessments/Tests: Treatment performed during evaluation: Gait Training Gait Training Time Entry: 8 Gait Training Activity 1: gait training Gait Training Activity 2: instruct re safe use of FWW Therapeutic Activity Therapeutic Activity Time Entry: 3 Therapeutic Activity 1: bed mobility training Therapeutic Activity 2: transfer training Therapeutic Activity 3: instruct re LE VRE Therapeutic Activity 4: ice to R knee Therapeutic Activity 5: instruct re R LE positioning Assessment/Plan PT Assessment PT Assessment/ Barriers to discharge: Decreased strength, Decreased range of motion, Impaired balance, Impaired gait, Decreased mobility, Decreased safety awareness, Pain Prognosis: Good Medical Staff Made Aware: Yes Comments: AIDAN Larson notified re status Plan Treatment/Interventions: Functional transfer training, LE strengthening/ROM, Patient/family training, Bed mobility, Gait training, Balance training PT Plan: Skilled PT PT Frequency: 7 days per week PT Duration of Sessions: PRN PT Treatments per day: 1-2 times per day PT Discharge Recommendations: intermediate facility placement PT - Evaluation Status: Complete PT Goals: Encounter Problems Encounter Problems (Active) Template: Physical Therapy Problem: PT Short Term Goals Dates: Start: 01/03/22 Goal: Pt will ambulate 150 ft. with wheeled walker and SBA Dates: Start: 01/03/22 Expected End: 01/06/22 Outcomes Date/Time User Outcome 01/03/22 Art Amin, PT Progressing Goal: Pt will perform bed mobility with SBA Dates: Start: 01/03/22 Expected End: 01/06/22 Outcomes Date/Time User Outcome 01/03/22 Art Amin, PT Progressing Goal: Pt will transfer with SBA and FWW Dates: Start: 01/03/22 Expected End: 01/06/22 Outcomes Date/Time User Outcome 01/03/22 Art Amin, PT Progressing Goal: Pt will demo good understanding of HEP protocol Dates: Start: 01/03/22 Expected End: 01/06/22 Goal: Caregiver/patient will demonstrate safety precautions during mobility tasks with CGA Dates: Start: 01/03/22 Expected End: 01/06/22 Encounter Problems (Resolved) There are no resolved problems. Education Documentation Explain call button use, taught by Katt Amin PT at 01/03/2022 3:54 PM. Learner: Patient Readiness: Acceptance Method: Explanation, Demonstration Response: Verbalizes Understanding, Demonstrated Understanding, Needs Reinforcement Teach fall prevention measures, taught by Katt Amin PT at 01/03/2022 3:54 PM. Learner: Patient Readiness: Acceptance Method: Explanation, Demonstration Response: Verbalizes Understanding, Demonstrated Understanding, Needs Reinforcement Home Exercise Program, taught by Katt Amin PT at 01/03/2022 3:54 PM. Learner: Patient Readiness: Acceptance Method: Explanation, Demonstration Response: Verbalizes Understanding, Demonstrated Understanding, Needs Reinforcement Mobility Training, taught by Katt Amin PT at 01/03/2022 3:54 PM. Learner: Patient Readiness: Acceptance Method: Explanation, Demonstration Response: Verbalizes Understanding, Demonstrated Understanding, Needs Reinforcement Explain call button use, taught by Katt Amin PT at 01/03/2022 3:54 PM. Learner: Patient Readiness: Acceptance Method: Explanation, Demonstration Response: Verbalizes Understanding, Demonstrated Understanding, Needs Reinforcement Teach fall prevention measures, taught by Katt Amin PT at 01/03/2022 3:54 PM. Learner: Patient Readiness: Acceptance Method: Explanation, Demonstration Response: Verbalizes Understanding, Demonstrated Understanding, Needs Reinforcement Home Exercise Program, taught by Katt Amin PT at 01/03/2022 3:54 PM. Learner: Patient Readiness: Acceptance Method: Explanation, Demonstration Response: Verbalizes Understanding, Demonstrated Understanding, Needs Reinforcement Mobility Training, taught by Katt Amin PT at 01/03/2022 3:54 PM. Learner: Patient Readiness: Acceptance Method: Explanation, Demonstration Response: Verbalizes Understanding, Demonstrated Understanding, Needs Reinforcement Education Comments No comments found. CM met with the patient today following a RTK performed per Dr. Smith to discuss discharge plans. Patient resides alone and is planning to discharge to a rehab facility for additional care and therapy services prior to transitioning home alone. Patient has requested [facility]. Patient states her brother will plan to provide transportation at time of discharge. CM was able to reach the admissions dept and the facility is an IPR, no swing bed/ TCU unit at this facility. Patient with multiple co morbidities and this CM will fax the referral for review to [phone] for review. Patient was educated a SNF would serve as a secondary choice if she does not meet IPR criteria. Patient with HX of PE and is on chronic coumadin therapy. Patient states she was on a preop Lovenox bridge. Plans for CM to discuss with the surgeon on am rounds needs for a post op lovenox bridge. DME at home discussed and the patient has a walker, shower seat, toilet riser and grab bars. Address verified and whiteboard updated Pain rated at 5. Vital signs stable. Meets criteria for discharge/transfer from PACU. [facility] - PROGRESS NOTE Patient Name : Trinity Godinez Patient : 1955 Patient Diagnosis : Perioperative Medical Management Provider Name : Chong Hsieh MD Date Of Service : 01/03/22 Patient currently recovering on DAY OF SURGERY SUBJECTIVE : Pain control post-operatively : Incisional and operative pain appears to be controlled in recovery. REVIEW OF SYSTEMS : HEENT : Denies eye pain or corneal abrasion Cardiovascular: Denies chest pain or pressure Respiratory: Denies shortness of breath or dyspnea Gastrointestinal: Denies post-operative nausea; Denies current abdominal pain or cramping Skin: Denies any new rash IMPRESSION AND PLAN : Prophylaxis For Prevention of Deep Vein Thrombosis ( DVT ) Prophylaxis should be based on the ACCP Guidelines and will be per surgeon's service per protocol. Management of NSAIDS, Anticoagulants, and Antibiotics will be per surgeon's service according to protocol. Patient should be encouraged regarding venous return exercises and ambulation. This patient will be considered acceptable for discharge from a medical perspective if the following criteria are met . . . 1. Oxygen Saturations > 90% on Room Air 2. Able to void without difficulty 3. Meets Physical Therapy goals for discharge 4. Passing Flatus 5. Cleared for discharge by surgeon and PT I have seen the patient personally today and reviewed the lab results section on this patient. This patient's medication list including their prescription drugs have been reviewed and specific recommendations as they relate to surgery and surgical recovery will be provided at discharge both verbally and in writing. A medical consult has been ordered by the surgeon for perioperative management of the patient's chronic medical conditions including the following . . . S/p Right TKR 01/03/22 Hypertension ( I 10 ) Chronic pre-existing condition present on admission. Currently being managed with standard anti-hypertensive medications. It should be noted that ROMA Inhibitors and ARBlockers and Diuretics are not normally given the morning of surgery due to the risks for perioperative hypotension. This patient's blood pressure will need to be monitored closely throughout their hospitalization since potential perioperative issues such as dehydration, pain level, and the use of anesthetics or pain medications can cause BP fluctuations. Additional BP control can be provided with the addition of PO or PRN Clonidine. BP Readings from Last 3 Encounters: 01/03/22 (!) 142/78 01/08/21 125/83 This patient has a known history of Pulmonary Embolism ( PE ) ( Z 86.711 ) in the past. They will require multi-modality treatments or interventions to prevent a reocurrence. This should include education on venous return exercises which have been provided by myself and will be emphasized with each follow-up interaction. In addition, aggressive goals for early ambulation and timely physical therapy for mobility and independence are recommended to help prevent a DVT. I recommend providing pharmacologic and non-pharmacologic prophylaxis per the ACCP Guidelines. This would include Lovenox, Arixtra, a New Oral Anticoagulant ( NOAC ) or a clinically proven equivalent. Ultimately, the final decision regarding anticoagulation for DVT prophylaxis / prevention will be per the discretion of the primary surgical service per protocol. Patient normally on Coumadin. Will need to be held for surgery but patient will require Bridge Lovenox therapy while medication on hold. Chronic Obstructive Pulmonary Disease / COPD ( J 44.9 ) Chronic pre-existing condition present on admission. This patient denies any current symptoms or recent exacerbation. They will be at an increased risk of pulmonary complications related to surgery including bronchitis and pneumonia. I recommend patient continue their prescribed bronchodilators without interruption. This would include the morning of surgery in order to prevent bronchospasm or any hypoventilation during surgery, even if they are stable. I would also recommend close monitoring of lung function and frequent pulmonary auscultation following surgery to watch for any wheezing. Nebulized bronchodilators should be administered if necessary. Supplemental oxygen should be used as necessary to avoid hypoxia. Would recommend caution with the addition of any sedatives mediations or narcotics which can decrease respiratory drive and contribute to hypoventilation and hypoxia. This patient should also be monitored on continuous pulse oximetry ATC until confirmed stable. Early ambulation and mobility and incentive spirometry have also been shown to decrease pulmonary complications related to surgery, especially in patients with COPD. These interventions should be encouraged as soon as possible following surgery. Insomnia ( G 47.00 ). Chronic pre-existing condition present on admission. Controlled with specific sedative medications at bedtime as needed. It is acceptable to continue patient's usual medication for insomnia during the perioperative time-period but with precautions regarding the risk of adverse interactions with other sedatives or pain medications prescribed. Gastroesophageal Reflux / GERD ( K 21.9 ) Chronic pre-existing condition present on admission. Currently stable on a Proton Pump Inhibitor ( PPI ) for treatment. GERD can be exacerbated by surgery or anesthesia due to increased stress, delayed gastric emptying, and supine positioning. Plan to continue prescribed PPI +/- antihistamine before and after surgery for reduction of gastric acidity. Anxiety ( F 41.9 ) Chronic pre-existing condition present on admission. I have recommended the patient continue their prescribed anxiolytic medications without interruption where applicable. Generally these medications are not necessary the morning of surgery unless they are anxiolytics or sedatives the patient takes regularly in the morning and has a presumed dependency. Sedative-type anxiolytics can be resumed postoperatively but should be used with precaution given the potential for side-effects such as sedation, hypoxia, and hypoventilation when used concurrently with pain medications including narcotics. VITALS : Visit Vitals BP (!) 142/78 Pulse 78 Temp 36.8 C (98.3 F) Resp 16 Ht 1.727 m (68 ) Wt 80.7 kg (177 lb 14.6 oz) SpO2 96% BMI 27.05 kg/m Smoking Status Former Smoker BSA 1.94 m PHYSICAL EXAM : General - Mild distress due to recent surgery; Sedation noted from anesthesia but conversational Skin - Normal skin turgor and texture; No rashes or ulcerations noted Eyes - PERRLA; Anicteric Sclerae ENMT - Hearing intact; Oropharynx clear but dry Cardiology - S1 S2 with regular rhythm. No tachycardia noted; No peripheral edema noted Respiratory - Clear to auscultate bilaterally; No accessory muscle use noted; No wheezing noted Abdominal - Non-tender to palpation; Soft without obvious mass noted Musculoskeletal - No clubbing of digits noted; No cyanosis of digits noted Psychiatric - Appropriate affect given recent anesthesia, Alert and oriented to person, place, and situation RESULTS : LABS CBC Lab Results Component Value Date WBC 9.6 12/21/2021 HGB 12.8 12/21/2021 HCT 41.3 12/21/2021 MCV 99.3 (H) 12/21/2021 PLT 297 12/21/2021 CMP Lab Results Component Value Date NA 140 12/21/2021 K 5.0 12/21/2021 CL 106 12/21/2021 CO2 22 12/21/2021 BUN 31 (H) 12/21/2021 CREATININE 1.26 12/21/2021 GLUCOSE 144 (H) 01/03/2022 Results from last 7 days Lab Units 01/03/22 0724 POCT GLUCOSE mg/dL 144* No lab exists for component: LABALBU GLUCOSE 0 Lab Value Date/Time GLUCOSE 144 (H) 01/03/2022 0724 GLUCOSE 99 12/21/2021 0935 GLUCOSE 105 (H) 01/13/2021 0600 GLUCOSE 103 (H) 01/12/2021 0500 GLUCOSE 86 01/09/2021 0724 COAGULATION TESTS LIPID PANEL THYROID TESTS No results found for: TSH URINE ANALYSIS No lab exists for component: [place] URINE CULTURE No results found for: URINECX BLOOD CULTURE No results found for: BLOODCX IMAGING XR CHEST 1 VIEW EXAMINATION TYPE: XR Chest 1 View DATE OF EXAM: 01/04/2021 11:36 AM HISTORY: Line placement COMPARISON: Radiograph dated 01/04/2021 FINDINGS: Right PICC is shown terminating in the superior vena cava. Streaky opacity is noted in the mid left lung. No pneumothorax or large pleural effusion identified. Cardiac silhouette is within normal limits for technique. No acute osseous findings. Prior left rib fractures. Right surgical clips. IMPRESSION: 1. Right PICC terminates in the superior vena cava. 2. Streaky opacity in the mid left lung, likely atelectasis or scarring. Ramy Santos thanks you for the opportunity to care for your patient. Workstation ID: [id number] - [id number] Dictated By: Garo Albarado MD 01/04/2021 11:41 Assigned Physician: Garo Albarado MD Reviewed and Electronically Signed By: Garo Albarado MD 01/04/2021 11:45 Transcribed by: STEW 01/04/2021 11:41 Technologist: CHIEF EXECUTIVE OR MANAGING DIRECTOR STRESS TEST No results found for this or any previous visit. ECHOCARDIOGRAM No results found for this or any previous visit. CATHETERIZATION No results found for this or any previous visit. ELECTROPHYSIOLOGY RESULT No results found for this or any previous visit. VASCULAR RESULT No results found for this or any previous visit. 12/27/21 1531 Referral Data Referral Reason Discharge Planning County Information County of Residence [place] Patient Information Accompanied by/Relationship telephone call Patient arrived from? Home Support System Extended family Referral To Financial Resources Other (Comment) (no needs identified) Community Resources Other (Comment) (no needs identified) Services Requested DME potential needs No Destination/Placement [facility] Rehab Potential Good CM made telephone call to patient preoperatively to complete initial assessment for discharge planning. Home address and PCP reviewed. Home assessment completed. Patient lives alone in a 1 story home, 5 steps/handrail to enter. Bathroom: tub shower, shower chair. DME reviewed, denies need. Plan: discharge to [facility], brother to provide transportation. Covid testing education provided, patient will schedule. All questions/concerns addressed. documented in this encounter [facility] 01-05-2022 Hospital course Narrative Prescriptions for discharge OXYCODONE TRAMADOL RX FOR HOME MEDS FOR CONTINUED CARE VALIUM GABAPENTIN RESTORIL -Follow surgeon's printed post op care instructions -PT/OT Eval for bed mobility, transfers, gait training, ROM, strengthening, modalities prn, venous return exercises and ADL'S -FWW for gait assit -Weight bearing as Tolerated -Please follow up with the coumadin clinic regarding Labs and lovenox bridge. SNF TECHNICAL ADMINISTRATIVE ASSISTANT TO HELP MANAGE TO THERAPEUTIC LEVEL -Plasma Flow SCD'S Compression leg pumps on Bilateral Legs for 20 hours per day x 2 weeks for additional DVT prevention- SEE SURGEONS INSTRUCTION SHEETS FOR DIRECTIONS [facility] FOR EDEMA TO OPERATIVE LEG NEEDED. MAY RESUME REGULAR DIET Pre-Surgery Instructions: Medication Instructions acetaminophen (Tylenol Extra Strength) 500 mg tablet Continue to take as ordered/prescribed by your pcp albuterol HFA (PROAIR HFA ; PROVENTIL HFA ; VENTOLIN HFA) 90 mcg/actuation inhaler Continue to take as ordered/prescribed by your pcp cholecalciferol (VITAMIN D-3) 50 mcg (2,000 unit) tablet Continue to take as ordered/prescribed by your pcp diazePAM (VALIUM) 2 mg tablet Continue to take as ordered/prescribed by your pcp gabapentin (NEURONTIN) 600 mg tablet Continue to take as ordered/prescribed by your pcp gabapentin (NEURONTIN) 600 mg tablet Continue to take as ordered/prescribed by your pcp isosorbide mononitrate (IMDUR) 60 mg 24 hr tablet Continue to take as ordered/prescribed by your pcp metoprolol succinate (TOPROL-XL) 100 mg 24 hr tablet Continue to take as ordered/prescribed by your pcp multivitamin (multivitamin) tablet Continue to take as ordered/prescribed by your pcp oxyCODONE (ROXICODONE) 5 mg immediate release tablet Continue to take as ordered/prescribed by your pcp polyethylene glycol (MIRALAX) 17 gram packet Continue to take as ordered/prescribed by your pcp potassium chloride (MICRO-K) 10 mEq CR capsule Continue to take as ordered/prescribed by your pcp promethazine (PHENERGAN) 25 mg tablet Continue to take as ordered/prescribed by your pcp sucralfate (CARAFATE) 1 gram tablet Continue to take as ordered/prescribed by your pcp temazepam (RESTORIL) 30 mg capsule Continue to take as ordered/prescribed by your pcp traMADoL (ULTRAM) 50 mg tablet Continue to take as ordered/prescribed by your pcp venlafaxine XR (EFFEXOR-XR) 150 mg 24 hr capsule Continue to take as ordered/prescribed by your pcp venlafaxine XR (EFFEXOR-XR) 75 mg 24 hr capsule Continue to take as ordered/prescribed by your pcp warfarin (COUMADIN) 3 mg tablet Continue to take as ordered/prescribed by your pcp Additional Instructions: Instructions to prepare for surgery: Increase water intake day PRIOR to surgery. Eat light meals or follow surgeon specific food instructions day PRIOR to surgery. At Midnight, nothing is allowed in your mouth. NO food, water, gum, candy, coffee, mints, tobacco, NOTHING AFTER MIDNIGHT. When you wake up, brush your teeth and use mouthwash. Don't swallow. Take small sip of water with meds that are to be taken DOS. Shower night prior and morning of surgery with antibiotic cleanser OR Dial antibacterial soap (as designated by surgeon). No lotions, creams, powders on your skin. You may wear deodorant (unless surgery is on your shoulder or breast(s)). No shaving surgical site (within 48 hours of surgery). Remove all jewelry, piercings and leave that at home. Leave valuable at home. Wear loose fitting clothes. Bring photo ID, medical insurance card, and copay as needed when you check in for surgery. In addition, bring any of the following: CPAP, living will/ medical POA, glasses, case, hearing aid container, shoulder sling, back brace, walker, cervical collar. Bring your COVID vaccine card, if applicable. Leave walker &/or cane (unless needed prior to surgery) and overnight bag in the car until after your procedure when you are assigned a room. Only 1 designated adult is allowed to go back into Pre-Op area with you. Surgical times are subject to change up until 5:30pm the evening prior to your surgery. Check in at customer service receptionist desk [phone], [place] [address]. Medication instructions per [facility] [place] [place] recc If Outpatient, these additional instructions apply: An adult must stay with you the whole time you are here and drive you home. An adult must stay with you at home for 24 hours due to Anesthesia. If you have LUPE, you are required to stay 3 hours after your surgery before we can discharge you. documented in this encounter [facility] 01-03-2022 Procedure note Family updated per phone. [facility] 01-03-2022 Procedure note Family updated per phone. Trinity Godinez 1955 ? Retention: Exchange Retention Policy (10 years) Expires: Sun01/01/2032 10:37 AM Retention: Exchange Retention Policy (10 years) Expires: Sun01/01/2032 10:37 AM [email or web address] EXTERNAL CAUTION: This email originated from outside the organization. Do not click links or open any attachments unless you recognize the sender and know the content is safe. If you believe this is spam, forward the message to [email or web address] - [employer] [facility], A Member of [facility] OPERATIVE REPORT PATIENT NAME: Trinity Godinez DATE OF : 1955 [facility]#: [id number] SURGEON: Calos Smith MD, FACS DATE OF SERVICE: 01/03/2022 DATE OF SURGERY: 01/03/2022 PREOPERATIVE DIAGNOSIS: OA right knee (M17.11) POSTOPERATIVE DIAGNOSIS: OA right knee (M17.11) PROCEDURE: Primary Right Total Knee Arthroplasty (62245) Femoral Component: Heidi Biomet Vanguard Cruciate Retaining , Size: 62.5mm Tibial Component: Biomet Fixed I-Beam Stem Tibial Tray 75mm Patella Component: Biomet Series A Standard Patella , 31mm Polyethylene: Vanguard ArCom anterior stabilized 12mm Fixation: Biomet Bone Cement with 1g Vancomycin ATTENDING SURGEON: Calos Smith MD, FACS MEDICAL TECHNICAL WRITER: STEPHAN Diane DO INDICATIONS: Patient is a 66-year-old Female. The patient has failed previous conservative treatment. Due to the nature of the patient's persistent symptoms, surgery is recommended. The alternatives, risks and benefits of surgery were discussed with the patient. The patient verbalized their understanding of the risks as well as the alternatives to surgery. The patient wished to proceed with operative intervention. A signed and witnessed informed consent was placed on the chart. History and Physical has been reviewed and there have been no changes in the patient's condition. PATIENT IDENTIFICATION: Patient was seen in preop, consent was reviewed, operative procedure was identified and surgical site and thigh marked. ANESTHESIA: Pre-Anesthesia Assessment: A History and Physical has been performed, and patient medication allergies have been reviewed. The risks and benefits of the procedure and the sedation options and risks were discussed with the patient. All questions were answered and informed consent was obtained. Anesthesia administered: General, Adductor canal block, iPACK FINDINGS: Bone/cartilage: Osteophytes were present, bone cysts were present, eburnated bone was present and bone loss was noted. The preoperative alignment was >10 valgus. The resultant postoperative alignment was 5 valgus (normal). DESCRIPTION OF PROCEDURE: Intraoperative Inputs and Outputs: Outs: Estimated Blood Loss: 50mL. Ins: Lactated Ringer's: 1500ml. Intraoperative Medications: Naropin (Ropivacaine), Epinephrine Drains: NONE PATIENT POSITIONING: The patient was taken into the operative suite and was placed supine upon the operating table. After suitable and adequate induction anesthesia, the patient is positioned supine with the lower extremity prepped and draped using a standard prep. The extremity is exsanguinated and the tourniquet is elevated. Prior to performance of surgical procedure, a time out was performed to identify the patient, date of , pertinent allergies, surgical procedure, surgical site, perioperative medications to include preoperative antibiotics given, preoperative x-rays and relevant images and results are noted and displayed, and availability of implants and supplies. INCISION TYPE: A midline incision to the knee is carried out. The incision is taken down through the skin and the subcutaneous tissues to the level of the extensor mechanism. A modified microplasty medial parapatellar arthrotomy is performed. The medial soft tissue sleeve is elevated directly from the proximal tibia, including excision of the anterior portion of the medial meniscus and elevation of the deep medial collateral and meniscocapsular ligament. INSTRUMENTS AND METHODS: The patella is now addressed. It is resected utilizing a modified free-hand technique. Caliper measurements are taken pre and post resection. Thickness and size are reconstructed with a 31mm Biomet Series A Standard Patella . The knee flexed and with assistance of an intramedullary guide, distal femoral resection is carried out for overall limb alignment of 5 degrees valgus. The proximal tibia is exposed with a posterior and lateral Pb. Resection is carried out with the extramedullary alignment jigs to produce a resection of 90 degrees to the tibial axis in the coronal plane with slight posterior slope. The tibia is sized and broached for a 75mm tibial baseplate. Attention is turned to the completion of the distal femoral resection. Rotational landmarks are identified, namely the anterior-posterior axis, the transepicondylar axis, the posterior condylar axis, and the tibial shaft axis. The rotation of the femur is set to match these rotational landmarks. Sizing is accomplished from a standard sizing jig. Anterior-posterior and chamfer resection is performed for a Size: 62.5mm , femoral component. The posterior recess of the knee is now addressed. With the assistance of a femoral-tibia distractor, the posterior portions of the medial and lateral menisci are excised and posterior ostephytes are removed. Trial components are now placed and peripheral osteophytes are removed. Ligamentous balancing is accomplished in flexion/extension to include the medial and lateral collaterals and the posterior cruciate ligament. A well-balanced arthroplasty is obtained with a Vanguard ArCom anterior stabilized 12mm tibial polyethylene insert. Trials are removed. The bony ends are lavaged and irrigated with pulsatile lavage. Sclerotic bone is punched to enhance cement intrusion. Polymethylmethacrylate is mixed and pressurized. A Vanguard ArCom anterior stabilized 12mm tibial polyethylene is placed. A Size: 62.5mm femoral component is placed. A Biomet Series A Standard Patella 31mm patellar component is placed. The knee is infiltrated with the intraoperative medications Naropin (Ropivacaine), Epinephrine. The tourniquet is released after 68 minutes, hemostasis is accomplished and tracking of the patellofemoral articulation is assessed. Adhesions in the lateral retinaculum are removed. A formal lateral retinacular release was not required. Varus Releases: Deep MCL and posterior medial corner Valgus Releases: None Posterior Cruciate Ligament Releases: Complete release for bearing WOUND CLOSURE: The extensor mechanism is approximated with a running #2 Quill PDO, subcutaneous tissues with 0 Quill Monoderm, and the skin is closed with 2-0 Quill Monoderm and Dermabond. Closure is accomplished in flexion. A sterile dressing is applied and a modified Satish Hliario dressing is utilized. PATIENT TO RECOVERY ROOM: The patient was awakened from anesthesia and taken to recovery room awake, alert, and stable in good condition. MEDICAL TECHNICAL WRITER/ATTENDING PARTICIPATION: STEPHAN Diane DO assisted with proper preoperative positioning, preoperative templating, determining availability of proper implants, prepping and draping of patient, manipulation placement of instruments, protection of ligaments and vital soft tissue structures, assistance in maintaining hemostasis, and assistance with closure of the wound. His skills and knowledge of the steps of the operation and the desired outcome of each surgical step was crucial, allowing for efficient choreography of surgical procedure, and closure of the wound which lead to reduced surgical time, less blood loss, and less risk of complications for the patient. I have advised the patient that this represents a major orthopedic surgical procedure. Post-operative pain may be of such severity that it may not be effectively managed with the 30 MED average limit and may require greater than 7 days of treatment. Therefore, appropriate narcotic dosing will be determined on a case by case basis. None Created & Digitally Signed By: Calos Smith MD, FACS on 01/03/2022 10:28:45 [facility], A Member of [facility] OPERATIVE REPORT PATIENT NAME: Trinity Godinez DATE OF : 1955 [facility]#: [id number] SURGEON: Calos Smith MD, FACS DATE OF SERVICE: 01/03/2022 DATE OF SURGERY: 01/03/2022 REF [id number] LOT [id number] Vanguard Knee System 62.5 MM Uncoated knee femur prosthesis, metallic Use By 2031-11-13 () [id number] () [id number] (10) [id number] REF [id number] LOT [id number] Biomet Knee System 75 mm Uncoated knee tibia prosthesis, metallic Use By 2031-10-11 () [id number] (54) [id number] (10) [id number] REF [id number] LOT [id number] Vanguard Knee System 31 mm 8 mm Polyethylene patella prosthesis Use By 2026-10-10 () [id number] (93) [id number] (10) [id number] REF [id number] LOT [id number] Vanguard Knee System 12 MM 75 MM Tibial insert Use By 2026-12-22 () [id number] (03) [id number] (93) [id number] documented in this encounter [facility] 01-03-2022 Procedure note Trinity Godinez 1955 ? Retention: Exchange Retention Policy (10 years) Expires: Sun01/01/2032 10:37 AM Retention: Exchange Retention Policy (10 years) Expires: Sun01/01/2032 10:37 AM [email or web address] EXTERNAL CAUTION: This email originated from outside the organization. Do not click links or open any attachments unless you recognize the sender and know the content is safe. If you believe this is spam, forward the message to [email or web address] - [email or web address] [facility], A Member of [facility] OPERATIVE REPORT PATIENT NAME: Trinity Godinez DATE OF : 1955 CSN#: [id number] SURGEON: Calos Smith MD, FACS DATE OF SERVICE: 01/03/2022 DATE OF SURGERY: 01/03/2022 PREOPERATIVE DIAGNOSIS: OA right knee (M17.11) POSTOPERATIVE DIAGNOSIS: OA right knee (M17.11) PROCEDURE: Primary Right Total Knee Arthroplasty (10174) Femoral Component: Heidi Biomet Vanguard Cruciate Retaining , Size: 62.5mm Tibial Component: Biomet Fixed I-Beam Stem Tibial Tray 75mm Patella Component: Biomet Series A Standard Patella , 31mm Polyethylene: Vanguard ArCom anterior stabilized 12mm Fixation: Biomet Bone Cement with 1g Vancomycin ATTENDING SURGEON: Calos Smith MD, FACS MEDICAL TECHNICAL WRITER: STEPHAN Diane DO INDICATIONS: Patient is a 66-year-old Female. The patient has failed previous conservative treatment. Due to the nature of the patient's persistent symptoms, surgery is recommended. The alternatives, risks and benefits of surgery were discussed with the patient. The patient verbalized their understanding of the risks as well as the alternatives to surgery. The patient wished to proceed with operative intervention. A signed and witnessed informed consent was placed on the chart. History and Physical has been reviewed and there have been no changes in the patient's condition. PATIENT IDENTIFICATION: Patient was seen in preop, consent was reviewed, operative procedure was identified and surgical site and thigh marked. ANESTHESIA: Pre-Anesthesia Assessment: A History and Physical has been performed, and patient medication allergies have been reviewed. The risks and benefits of the procedure and the sedation options and risks were discussed with the patient. All questions were answered and informed consent was obtained. Anesthesia administered: General, Adductor canal block, iPACK FINDINGS: Bone/cartilage: Osteophytes were present, bone cysts were present, eburnated bone was present and bone loss was noted. The preoperative alignment was >10 valgus. The resultant postoperative alignment was 5 valgus (normal). DESCRIPTION OF PROCEDURE: Intraoperative Inputs and Outputs: Outs: Estimated Blood Loss: 50mL. Ins: Lactated Ringer's: 1500ml. Intraoperative Medications: Naropin (Ropivacaine), Epinephrine Drains: NONE PATIENT POSITIONING: The patient was taken into the operative suite and was placed supine upon the operating table. After suitable and adequate induction anesthesia, the patient is positioned supine with the lower extremity prepped and draped using a standard prep. The extremity is exsanguinated and the tourniquet is elevated. Prior to performance of surgical procedure, a time out was performed to identify the patient, date of , pertinent allergies, surgical procedure, surgical site, perioperative medications to include preoperative antibiotics given, preoperative x-rays and relevant images and results are noted and displayed, and availability of implants and supplies. INCISION TYPE: A midline incision to the knee is carried out. The incision is taken down through the skin and the subcutaneous tissues to the level of the extensor mechanism. A modified microplasty medial parapatellar arthrotomy is performed. The medial soft tissue sleeve is elevated directly from the proximal tibia, including excision of the anterior portion of the medial meniscus and elevation of the deep medial collateral and meniscocapsular ligament. INSTRUMENTS AND METHODS: The patella is now addressed. It is resected utilizing a modified free-hand technique. Caliper measurements are taken pre and post resection. Thickness and size are reconstructed with a 31mm Biomet Series A Standard Patella . The knee flexed and with assistance of an intramedullary guide, distal femoral resection is carried out for overall limb alignment of 5 degrees valgus. The proximal tibia is exposed with a posterior and lateral Pb. Resection is carried out with the extramedullary alignment jigs to produce a resection of 90 degrees to the tibial axis in the coronal plane with slight posterior slope. The tibia is sized and broached for a 75mm tibial baseplate. Attention is turned to the completion of the distal femoral resection. Rotational landmarks are identified, namely the anterior-posterior axis, the transepicondylar axis, the posterior condylar axis, and the tibial shaft axis. The rotation of the femur is set to match these rotational landmarks. Sizing is accomplished from a standard sizing jig. Anterior-posterior and chamfer resection is performed for a Size: 62.5mm , femoral component. The posterior recess of the knee is now addressed. With the assistance of a femoral-tibia distractor, the posterior portions of the medial and lateral menisci are excised and posterior ostephytes are removed. Trial components are now placed and peripheral osteophytes are removed. Ligamentous balancing is accomplished in flexion/extension to include the medial and lateral collaterals and the posterior cruciate ligament. A well-balanced arthroplasty is obtained with a Vanguard ArCom anterior stabilized 12mm tibial polyethylene insert. Trials are removed. The bony ends are lavaged and irrigated with pulsatile lavage. Sclerotic bone is punched to enhance cement intrusion. Polymethylmethacrylate is mixed and pressurized. A Vanguard ArCom anterior stabilized 12mm tibial polyethylene is placed. A Size: 62.5mm femoral component is placed. A Biomet Series A Standard Patella 31mm patellar component is placed. The knee is infiltrated with the intraoperative medications Naropin (Ropivacaine), Epinephrine. The tourniquet is released after 68 minutes, hemostasis is accomplished and tracking of the patellofemoral articulation is assessed. Adhesions in the lateral retinaculum are removed. A formal lateral retinacular release was not required. Varus Releases: Deep MCL and posterior medial corner Valgus Releases: None Posterior Cruciate Ligament Releases: Complete release for bearing WOUND CLOSURE: The extensor mechanism is approximated with a running #2 Quill PDO, subcutaneous tissues with 0 Quill Monoderm, and the skin is closed with 2-0 Quill Monoderm and Dermabond. Closure is accomplished in flexion. A sterile dressing is applied and a modified Satish Hilario dressing is utilized. PATIENT TO RECOVERY ROOM: The patient was awakened from anesthesia and taken to recovery room awake, alert, and stable in good condition. MEDICAL TECHNICAL WRITER/ATTENDING PARTICIPATION: STEPHAN Diane DO assisted with proper preoperative positioning, preoperative templating, determining availability of proper implants, prepping and draping of patient, manipulation placement of instruments, protection of ligaments and vital soft tissue structures, assistance in maintaining hemostasis, and assistance with closure of the wound. His skills and knowledge of the steps of the operation and the desired outcome of each surgical step was crucial, allowing for efficient choreography of surgical procedure, and closure of the wound which lead to reduced surgical time, less blood loss, and less risk of complications for the patient. I have advised the patient that this represents a major orthopedic surgical procedure. Post-operative pain may be of such severity that it may not be effectively managed with the 30 MED average limit and may require greater than 7 days of treatment. Therefore, appropriate narcotic dosing will be determined on a case by case basis. None Created & Digitally Signed By: Calos Smith MD, FACS on 01/03/2022 10:28:45 [facility], A Member of [facility] OPERATIVE REPORT PATIENT NAME: Trinity Godinez DATE OF : 1955 CSN#: [id number] SURGEON: Calos Smith MD, FACS DATE OF SERVICE: 01/03/2022 DATE OF SURGERY: 01/03/2022 REF [id number] LOT [id number] Vanguard Knee System 62.5 MM Uncoated knee femur prosthesis, metallic Use By 2031-11-13 () [id number] ( [id number] (18) [id number] REF [id number] LOT [id number] Biomet Knee System 75 mm Uncoated knee tibia prosthesis, metallic Use By 2031-10-11 () [id number] (97) [id number] (10) [id number] REF [id number] LOT [id number] Vanguard Knee System 31 mm 8 mm Polyethylene patella prosthesis Use By 2026-10-10 () [id number] (99) [id number] (32) [id number] REF [id number] LOT [id number] Vanguard Knee System 12 MM 75 MM Tibial insert Use By 2026-12-22 () [id number] (50) [id number] (54) [id number] [facility] 01-03-2022 History and physical note History and Physical Update ( H&P completed within the previous thirty days ) I personally reviewed the History and Physical, interviewed and examined the patient prior to surgery. No changes have occurred in the patient's condition since the History and Physical was completed. [facility] 01-03-2022 History and physical note History and Physical Update ( H&P completed within the previous thirty days ) I personally reviewed the History and Physical, interviewed and examined the patient prior to surgery. No changes have occurred in the patient's condition since the History and Physical was completed. documented in this encounter [facility] 10-23-2021 Note PROCEDURE: XR KNEE R T 4V or > HISTORY: Pain of right knee joint , chronic COMPARISON: XR knee right 06/20/2020 FINDINGS: BONES:Narrowing of all 3 joint spaces, greatest involving the anterior compartment. Irregular sclerosis of the tibial plateau suggesting possible [id number] contact and weightbearing. SOFT TISSUES:No visible soft tissue swelling. EFFUSION:Large joint effusion. OTHER: Negative. IMPRESSION: 1. No acute bone abnormality. 2. Joint space narrowing which may be greater during weightbearing than seen on today's study given the articular surface sclerosis which is new since prior study. 3. Large joint effusion. Consider MRI for further evaluation of the knee. Electronically authenticated by: GARO CASILLAS Date: 2021-10-23 07:14 [facility] 01-08-2021 Physician Hospital Discharge summary ATTENTION: CUTOVER PATIENT Please Note: This patient was being treated during the EHR conversion from [facility] to [facility] on 01/08/2021 There are two medical records for this patient; one in [facility] and one in [facility]. To see the remainder of the medical record, refer to the [facility] medical record. If you have questions, please contact the Health Information Management Department Patient Name: TRINITY GODINEZ Patient [facility] 01-08-2021 History of Present illness Narrative Faxed orders to [facility] AT [phone] Discharge fodler to nursing for discharge to [facility]. Rx in folder tylenol tramadol oxycodone. Physical Therapy Physical Therapy Treatment Subjective: Pt declined to participate in PT treatment this afternoon, pt stated she would like to rest. Will continue to follow for skilled PT until D/C from [facility]. Problem: Mobility Goal: Patient will ambulate Outcome: Progressing Goal: Patient will ascend and descend four to six stairs Outcome: Progressing Problem: Transfers Goal: Patient to transfer to and from sit to supine Outcome: Progressing Goal: Patient will transfer sit to and from stand Outcome: Progressing Problem: Mobility Goal: Patient will ambulate Outcome: Progressing Problem: Mobility Goal: Patient will ascend and descend four to six stairs Outcome: Progressing Problem: Transfers Goal: Patient to transfer to and from sit to supine Outcome: Progressing Problem: Transfers Goal: Patient will transfer sit to and from stand Outcome: Progressing Message left for [facility] to see when they can accept the patient Spoke to Delroy at [facility] she does not want the patient to discharge uptil after 1500. Spoke with patient and Granddaughter is planning to be here at that time anyways. Instructed to take the Discharge folder to [facility] and give the entire folder to them and voices understanding Physical Therapy Physical Therapy Treatment Subjective Subjective: Pt supine in bed and agreeable to therapy w/ B sequential pumps applied. Pt anticipated D/C to [facility] today for continued therapy. Vitals/Pain Pain Assessment Pain Score: 7 Pain Location: Knee Pain Orientation: Left Pain Descriptors: Aching Objective General Visit Information: Precautions Precautions LLE Weight Bearing Status: As Tolerated Orthopedic Precautions: Other (Comment) (Knee Immobilizer OOB, no flexion, no ther ex. ) Orthoses Applied: Knee Immobolizer Cognition: Cognition Arousal/Alertness: Appropriate responses to stimuli Orientation Level: Oriented X4 Following Commands: Follows all commands and directions without difficulty Cognition Comments: Cooperative, agreeable to therapy General Assessments: Activity Tolerance Activity Tolerance Comments: Instructed in deep breathing during session to reduce SOB Functional Assessments: Bed Mobility Lying to Sitting Assistance: Contact guard, Minimum assistance Transfers Sit to Stand Assistance: Contact guard, Minimum assistance Toilet Transfer Assistance: Contact guard, Minimum assistance Ambulation Walking Assistance: Contact guard Device: Rolling walker (FWW) Distance Ambulated (ft): 45 Modalities: None performed Procedure/Treatment: Gait, Therapeutic Activity Other Activities: None performed Assessment/Plan PT Assessment PT Assessment/ Barriers to discharge: Decreased strength, Decreased range of motion, Decreased endurance, Impaired gait, Decreased mobility, Pain Prognosis: Good Evaluation/Treatment Tolerance: Patient limited by fatigue Plan Treatment/Interventions: Bed mobility, Gait training, Equipment eval/education, Patient/family training, Endurance training, LE strengthening/ROM, Functional transfer training PT Plan: Skilled PT PT Frequency: 7 days per week PT Duration of Sessions: PRN PT Treatments per day: 1-2 times per day PT Discharge Recommendations: Inpatient rehab facility placement Equipment Recommended: FWW Goals: Encounter Problems Encounter Problems (Active) Template: Physical Therapy Problem: Mobility Goal: Patient will ambulate Dates: Start: 01/08/21 Expected End: 01/08/21 Description: Goal Type: STG, Performance Level: Stand by Assist 150 feet Outcomes Date/Time User Outcome 01/08/21 1206 Yudith Reynolds PT Progressing Goal: Patient will ascend and descend four to six stairs Dates: Start: 01/08/21 Expected End: 01/08/21 Description: Goal Type: STG, Performance Level: Contact guard Outcomes Date/Time User Outcome 01/08/21 1206 Yudith Reynolds PT Progressing Problem: Transfers Goal: Patient to transfer to and from sit to supine Dates: Start: 01/08/21 Expected End: 01/08/21 Description: Goal Type: STG, Performance Level: Stand by Assist Outcomes Date/Time User Outcome 01/08/21 1206 Yudith Reynolds, PT Progressing Goal: Patient will transfer sit to and from stand Dates: Start: 01/08/21 Expected End: 01/08/21 Description: Goal Type: STG, Performance Level: Stand by Assist Outcomes Date/Time User Outcome 01/08/21 1206 Yudith Reynolds PT Progressing Encounter Problems (Resolved) There are no resolved problems. Education Documentation No documentation found. Education Comments No comments found. Rounded with Kd Storc INR 1.5 continue warfarin tolerating percocet no chnges to discharge pain Rx Dr hicks following PICC line and IV antibiotics PT progress reviewed WBAT Knee Immobilizer when up. May discharge to [facility] if OK with Gen Med and Dr Hicks. Orthopedic Progress Note Subjective Post-Operative Day: 5 Post-Left Knee Reimplant Systemic or Specific Complaints: No Complaints Objective Vital signs in last 24 hours: Temp: 36.2 C (97.2 F) (01/09 812) Heart Rate: 76 (01/09 812) Resp: 12 (01/09 812) BP: 125/83 (01/09 812) General: alert and oriented, in no acute distress Subjective Pain: Mild Drainage: None Swelling: None Tenderness: Slight Neurovascular: Intact Wound: wound clean and dry no evidence of infection Data Review CBC: Assessment/Plan Status post- Left Knee Reimplant Doing well postoperatively. Weight Bearing: WBAT, Knee Immobilizer with out-of-bed. Discharge Plan: today to [facility]. LOS: 5 days VALARIE Gan Date: 01/08/2021 Time: 9:48 AM EDT [facility] - PROGRESS NOTE Patient Name : Trinity Godinez Patient : 1955 Patient Admit Date : 01/03/2021 Admission Diagnosis : Postoperative Medical Comanagement Provider Name : Rachel Munoz M.D. Date Of Service : 01/08/21 IMPRESSION AND PLAN : Prophylaxis For Prevention of Deep Vein Thrombosis ( DVT ) Prophylaxis should be based on the ACCP Guidelines and will be per surgeon's service per protocol. Management of NSAIDS, Anticoagulants, and Antibiotics will be per surgeon's service according to protocol. Patient should be encouraged regarding venous return exercises and ambulation. This patient will be considered acceptable for discharge from a medical perspective if the following criteria are met . . . 1. Oxygen Saturations > 90% on Room Air 2. Able to void without difficulty 3. Meets Physical Therapy goals for discharge 4. Passing Flatus 5. Cleared for discharge by surgeon Patient currently recovering POD#5. I have seen the patient personally today and reviewed the lab results section on this patient. This patient's medication list including their prescription drugs have been reviewed and specific recommendations as they relate to surgery and surgical recovery will be provided at discharge both verbally and in writing. A medical consult has been ordered by the surgeon for perioperative management of the patient's chronic medical conditions including the following . . . Osteoarthritis Left Knee/left knee infection with previous left knee radical debridement. Now status post left knee reimplant. POD 5 Management per primary surgical service. Please see below regarding details of medical comanagement Infectious disease following for antibiotic management. DVT prophylaxis is recommend as per current ACCP guidelines. She is at elevated risk due to past history of prior PE in 2019. Consideration should be given for use of Lovenox-at dose adjusted for renal, or Novel oral anticoagulant. This decision will be left to the discretion of the primary surgical service. Will encourage Venous return exercises. Patient has been restarted on Coumadin. INR today 1.5, will need to be continued to be monitored at the F. HTN (I10) Chronic condition & present on admission - controlled on home prescription medications, which have been reordered. Blood pressures reviewed and reasonable postop control. Hold parameters for low blood pressure. Continue PRN Clonidine for elevated blood pressure while in hospital. BP currently well controlled. Home BP medications include: Hydralazine, metoprolol and isosorbide mononitrate. Chronic Obstructive Pulmonary Disease ( J44.1) Chronic condition & present on admission. Continue encourage incentive spirometer. A medication/bronchodilators have been reordered since surgery. Remains asymptomatic. No cardiopulmonary complaints. Currently on room air. History of congestive heart failure. Diastolic.. Most recent echocardiogram reviewed on chart and previously reviewed from 2019-09-29 showed borderline concentric LVH. LVEF greater than 55%. No significant valvular abnormalities. Remains well compensated. No signs symptoms of decompensated heart failure during today's exam. GERD - (K21.9) Chronic condition and present on admission. Controlled with home prescription medications, which have been reordered. Remains asymptomatic. Depression - Chronic preexisting condition (F32.9) and present on admission. Controlled with home prescription medications, which have been reordered. Seems to be in good spirits despite her situation. Stable continue on SSRI Obesity - (E66.09) Current BMI -30 Sleep Apnea - LUPE - ((G47.33) Chronic condition & present on admission. I have resume home CPAP. & monitor on telemetry and continue pulse oximetry Follow LUPE postop Protocol while hospitalized. Wean off oxygen as tolerated, stable respiratory status since surgery History of COVID-19 infection May 2020. By history and resolved without reported sequela Anxiety - Chronic condition (F41.9) and present on admission controlled with home medications, which have been reordered. Sedation Parameters as needed with any use of benzodiazepine medications. Valium reported. Reports doing well this morning other than not sleeping at bedtime. Request her sleeping agent History of acute kidney injury (N17.9)- by previous recent history. Previous creatinine peaked out at at 4.5. And attributed previous use of vancomycin. However apparently made full recovery with creatinine preoperatively noted to be 1.0 on 2020-12-27 -2020 labs Elevated serum creatinine/consistent with recurrent acute kidney injury. Creatinine peaked at 2.4 on POD #1. 2 on 01/05/2021. 1.8 on 01/06/2021. Off IV fluids at this point. Have been continue to encourage oral hydration. Creatinine stable 10 7 and 10 8 and will continue to be monitored post discharge at ECF, avoid nephrotoxic agents. Antibiotics per primary infectious disease service. Left adrenal mass. Noted on ultrasound imaging at outside facility due to renal issues 3.9 cm. Patient will need to follow-up with her surveillance physician/poultry tender post discharge Acute Post Hemorrhagic Anemia (D62) -clinically well-tolerated with no indication for transfusion at this time. Insomnia (F51.01) Chronic condition & controlled with home prescription medication, which have been reordered with sedation parameters. Patient prefers temazepam over trazodone and have made change. Medically acceptable for discharge if passing flatus, room air sat greater than 90%, meets PT goals, and acceptable to the surgical service and infectious disease. Home medication reconciliation completed, defer DVT prophylaxis, NSAIDs, anticoagulants, antibiotics, and pain medications to the surgical service. Subjective: Patient reports pain is currently tolerable, denies chest pain shortness of breath or nausea. Reports plans for discharge to ECF today. Reports passing flatus and voiding without difficulty. VITALS : Visit Vitals BP 125/83 (BP Location: Right arm, Patient Position: Lying) Pulse 76 Temp 36.2 C (97.2 F) (Temporal) Resp 12 Ht 1.753 m (69 ) Comment: Pt reported Wt 93.4 kg (205 lb 14.6 oz) Comment: Actual SpO2 93% BMI 30.41 kg/m BSA 2.09 m Temp: 36.2 C (97.2 F) (01/09 812) Heart Rate: 76 (01/09 812) Resp: 12 (01/09 812) BP: 125/83 (01/09 812) No intake/output data recorded. No intake/output data recorded. Body surface area is 2.09 meters squared. Body mass index is 30.41 kg/m . BMI Readings from Last 1 Encounters: 01/06/21 30.41 kg/m @@ No intake/output data recorded. No intake/output data recorded. PHYSICAL EXAM : General - No acute distress; Alert and conversational Cardiology - No tachycardia noted; No peripheral edema noted Respiratory - Clear to auscultate bilaterally; No accessory respiratory muscle use noted; No wheezing noted Abdominal - Non-tender to palpation; Soft and non-tender without obvious mass; Active bowel sounds noted No clinical evidence of postoperative ileus at this time Musculoskeletal - No calf tenderness noted on palpation Psychiatric - Appropriate affect, Alert and oriented to person, place, and situation RESULTS : LABS No lab exists for component: LABALBU No lab exists for component: NEUTOPHILPCT @LABRCNT(HGB:*,WBC:*,PLT:*,NA:*,K:*, CO2:*,CA:*,BUN:*,CREAT:*,MG:*,GLU:*, CRPNC:*,INR:*BNP:*UA:*)@ No results found for: GLUCOSE, CALCIUM, NA, K, CO2, CL, BUN, CREATININE CBC No results found for: WBC, HGB, HCT, MCV, PLT .RESULAST[MCH:3,MCV:*,HCT} CMP No results found for: NA, K, CL, CO2, GLUCOSE, BUN, CREATININE, CALCIUM, PROT, ALBUMIN, BILITOT, AST, ALT, URICACID, PHOS, MG, ALKPHOS, CKTOTAL, EGFR GLUCOSE @LABRCNT[HGBA1C:1@ No results found for: GLUART COAGULATION TESTS Results from last 7 days Lab Units 01/08/21 0500 INR 1.5 LIVER FUNCTION TESTS No results found for: AST No results found for: ALT No results found for: ALT, AST, GGT, ALKPHOS, BILITOT LIPID PANEL THYROID TESTS @LABCNT[TSH:5,T4:5,T3:5@ URINE ANALYSIS AND CULTURE @LABRCNT[URINE:1@ No results found for: URINECX IMAGING documented in this encounter [facility] 01-08-2021 Hospital course Narrative Patient will need an INR checked within 3 days of discharge to ECF for warfarin management to be monitored by ECF physician. Also needs outpatient follow-up with nephrology for monitoring of kidney function. Please follow-up with your poultry tender for ongoing surveillance of your kidney function. You should have an INR checked within 3 days of discharge to [facility] for management of your warfarin. documented in this encounter [facility] 01-08-2021 Hospital Discharge instructions Marsha Doan RN - 01/08/2021 Images from the original note were not included. Learning About Managing Acute Pain at Home What is a pain management plan? A pain management plan spells out ways you can deal with your pain at home. You and your care team will create this plan before you leave the hospital. The plan may include: The goals of your treatment. This may include how you can expect your pain and function to improve. The treatments your doctor suggests for your pain. These may include medicines, physical therapy, or relaxation exercises. Notes about how you and your care team will work together as you recover. Your team may include your doctor, a physical therapist, and an occupational therapist. A review of your treatment goals for pain and function. Your feelings about how you want to manage your pain are important. Be open and honest when you talk with your doctor. This will help ensure that you get a plan that is safe and that works best for you. Why is it important to follow your plan? After you have an injury or surgery, a certain amount of pain is common and normal. But you can manage your pain after you leave the hospital. The best way to do that is to follow your pain management plan. This will help keep you comfortable and able to do the things you want to do. It can also speed your recovery and help reduce the risk of problems. What are the side effects of pain medicines? All pain medicines like acetaminophen, nonsteroidal anti-inflammatory drugs, and opioids have side effects, including allergic reaction, rash, and upset stomach. Common side effects of opioids also include constipation and nausea. More serious effects include needing larger doses over time, getting sick if you stop taking the drug, developing opioid use disorder, and . How do you manage pain after you leave the hospital? After you leave the hospital, the best way to benefit from your treatment is to take good care of yourself. Here are some ways to do that. Try nonmedical ways to relieve pain. These ways include breathing exercises, progressive muscle relaxation, yoga, meditation, and massage. Take your medicines or other treatments exactly as prescribed. Let your doctor know if your pain isn't getting better. Pace yourself. It might be hard to take it easy when you get home. But even simple activities can increase pain at first. Follow your doctor's instructions about when you can be active again and any activities you should avoid. When you do start getting back to your regular activities, start slowly. Arrange your home to help you recover. Here are some ideas: ? Remove throw rugs to prevent falling. ? Sleep close to the bathroom, or have a commode near your bed. ? Have pillows near you so you can sit or lie in a comfortable position. Use tools that may help. Some devices may help you do your daily activities and be more mobile. These devices include walking canes, crutches, grab bars, and reachers. Try heat or cold. Heat can soothe muscle pain and other aches. Cold can help with swelling. Get support. Friends and relatives often want to help but don't know what to do. Let them know what you need. It will make them happy and will help you. How do you take opioids safely? Opioids can help you manage pain. But their use can lead to problems, like opioid use disorder and even . Because of this, it is best to get off them as soon as possible. As soon as you don't need them, talk to your doctor about how to safely stop taking them. If you need to take opioids to manage pain, this advice can help you stay safe. Take opioids exactly as directed. Follow the directions carefully. It's easy to misuse opioids if you take a dose other than what's prescribed by your doctor. Even sharing them with someone they were not meant for is misuse. Do not drive or operate machinery. Opioids may affect your judgment and decision making. Talk with your doctor about when it is safe to drive. Avoid alcohol, sleeping medicines, and muscle relaxers. Opioids can be dangerous if you take them with alcohol or with certain drugs. This includes erav-szq-ggkrikc medicines. Make sure your doctor knows about all the other medicines you take. Don't start any new medicines before you talk to your doctor or pharmacist. Ask your doctor about a naloxone rescue kit. It can help you and even save your life if you take too much of an opioid. How do you safely store opioid pills and patches? It's important to store opioids safely so that they aren't used by the wrong person. Your pain medicine is only for you to take. If someone else takes your medicine, it can harm that person. You can safely store your medicine. Follow these tips. Store pills and patches up high and out of sight. ? Keep them away from children and pets. ? Return the container to the same place each time you take your medicine. Try locking your opioid medicine in a cabinet. Make sure the bottles are closed tightly. If they have a safety cap, make sure that it's locked. Tighten the cap until you hear a click or can't twist it anymore. Keep track of how many pills or patches you have left. You may want to keep track in a notebook. Let the people who live with you know about your medicine. ? Tell them that it is only for you to take. ? If guests have opioid medicine with them, ask them to keep it safe. How do you get rid of opioid pills and patches safely? If you have opioid pills or patches that you aren't going to use, get rid of them right away. It's also important to get rid of used opioid patches. Do not keep your opioid medicine or opioid patches for later use. When you get rid of these medicines safely, you take away any chance that a person or an animal might get sick from one of them. Follow one of these steps. If you can't do the first step, then take the next step. Bring them to a Drug Enforcement Administration ([place]ICHO)-authorized medicine take-back program or drop-off box. ? Your local trash and recycle center, pharmacy, or hospital may offer one of these. Throw the medicines in the trash. Take this step if you can't get to a take-back program or drop-off box and the medicine's instructions do not have specific disposal information. 1. Take the medicine out of its container. 2. Mix it with something that tastes bad, like cat litter or coffee grounds. 3. Place the mixture in a sealed plastic bag and put the bag in your household trash. Flush them down the sink or toilet. ? You can flush your medicine down the toilet or sink only if you can't go to a WICHO-approved site or if your medicine's instructions specifically say to. ? If you are throwing away a patch, first fold the sticky sides together. ? You can also go to the FDA website to see a list of medicines that should be flushed. Follow-up care is a terry part of your treatment and safety. Be sure to make and go to all appointments, and call your doctor if you are having problems. It's also a good idea to know your test results and keep a list of the medicines you take. Where can you learn more? Go to https://www.thrdPlace.Fiestah/david chart Enter P175 in the search box to learn more about Learning About Managing Acute Pain at Home. Current as of: July 08, 2020 Content Version: 13.0 [employer]. Care instructions adapted under license by your healthcare professional. If you have questions about a medical condition or this instruction, always ask your healthcare professional. [employer] disclaims any warranty or liability for your use of this information. Learning About Opioids and Acute Pain What is acute pain? Pain that starts quickly and lasts for a short time is called acute pain. Examples include pain from an injury or childbirth and pain right after surgery. Acute pain is a normal part of injury and healing. Why are opioids used for acute pain? Opioid medicines can treat pain. For acute pain after an injury or a surgery, your doctor may prescribe an opioid to be used for a short time. But opioids can be dangerous. And they may not do a better job of treating pain than non-opioids, like acetaminophen and NSAIDs. What are the risks? Opioids are powerful medicines. Taking them for even a short time has risks. Here are some of the risks. Physical side effects. Opioids can cause constipation, nausea, and vomiting. Problems thinking clearly. They can affect judgment and decision making. You may not be able to drive or work while taking them. Increased tolerance. This happens when your body gets used to the medicine. Over time you need a higher dose to get pain relief. Physical dependence. This means that your body starts to need the medicine to feel normal. You may have withdrawal symptoms if you stop taking it or take less of it. Opioid use disorder. This means that someone uses opioids even though it causes harm to themselves or others. Moderate to severe opioid use disorder is sometimes called addiction. Overdose, and even . Opioid medicines can cause serious problems if they're misused. You could take too much and have an overdose, and even . What should you tell your doctor? Tell your doctor about medicines, supplements, and any drugs or alcohol you use. Taking opioids with other substances can cause an overdose. And make sure to tell your doctor if you've ever had problems with alcohol, legal medicines, or illegal drugs. It can increase your risk for more problems. How can you work with your doctor to manage your pain? You are the most important part of your healing. You can work with your doctor to manage your pain safely. For example, you can: Set realistic goals with your doctor for pain control. Ask your doctor about taking non-opioids for pain. These may include acetaminophen or NSAIDs. Try things other than medicine. Examples include massage, physical therapy, heat or cold, and acupuncture. If you are prescribed an opioid for acute pain, you can expect that your doctor will be careful to help keep you safe. Your doctor may: Prescribe the smallest dose needed to control pain, and for the shortest amount of time possible. Limit the prescription to 3 to 5 days. Require a urine drug test before you start (or while you take) the medicine. Stop the medicine if it's not working as it should. Where can you learn more? Go to https://www.thrdPlace.Fiestah/Celsionmy chart Enter A180 in the search box to learn more about Learning About Opioids and Acute Pain. Current as of: July 08, 2020 Content Version: 13.0 [employer]. Care instructions adapted under license by your healthcare professional. If you have questions about a medical condition or this instruction, always ask your healthcare professional. [employer] disclaims any warranty or liability for your use of this information. The following attachments cannot be sent through Care Everywhere.Incentive Spirometer: General Info (Norwegian)Constipation (Norwegian)DVT (Deep Vein Thrombosis): General Info (Norwegian)Fall Prevention (Norwegian)Opioids: General Info (Norwegian)documented in this encounter [facility] 01-07-2021 Hospital Progress note Patient: TRINITY GODINEZ MRN: ([id number] Age: 65 years Sex: Female : 1955 Associated Diagnoses: None Author: Rogelio Leyva MD Assessment Assessment Diagnosis: Primary osteoarthritis of left knee ([id number]-SZ M17.12, Working, Medical), Unilateral primary osteoarthritis, left knee Unspecified osteoarthritis, unspecified site . Plan Osteoarthritis Left Knee/left knee infection with previous left knee radical debridement. Now status post left knee reimplant. POD 4 Management per primary surgical service. Please see below regarding details of medical comanagement Infectious disease following for antibiotic management. DVT prophylaxis is recommend as per current ACCP guidelines. She is at elevated risk due to past history of prior PE in 2019. Consideration should be given for use of Lovenox-at dose adjusted for renal, or Novel oral anticoagulant. This decision will be left to the discretion of the primary surgical service. Will encourage Venous return exercises. Patient has been restarted on Coumadin. INR today 1.3 Home medications have been reviewed and continued post surgery. Pain Control -reports improving. Continue current protocol. Continue gabapentin for neuropathic pain component. HTN (I10) Chronic condition and present on admission - controlled on home prescription medications, which have been reordered. Blood pressures reviewed and reasonable postop control. Hold parameters for low blood pressure. Continue PRN Clonidine for elevated blood pressure while in hospital. BP 138/80 Home BP medications include: Hydralazine, metoprolol and isosorbide mononitrate. Chronic Obstructive Pulmonary Disease ( J44.1) Chronic condition and present on admission. Continue encourage incentive spirometer. A medication/bronchodilators have been reordered since surgery. Remains asymptomatic. No cardiopulmonary complaints. Special note prehospitalization patient was reporting use of as needed O2 at bedtime at the F. Nocturnal/supine desaturation. History of congestive heart failure. Diastolic.. Most recent echocardiogram reviewed on chart and previously reviewed from 2019-09-29 showed borderline concentric LVH. LVEF greater than 55%. No significant valvular abnormalities. Remains well compensated. No signs symptoms of decompensated heart failure. GERD - (K21.9) Chronic condition and present on admission. Controlled with home prescription medications, which have been reordered. Remains asymptomatic. Depression - Chronic preexisting condition (F32.9) and present on admission. Controlled with home prescription medications, which have been reordered. Seems to be in good spirits despite her situation. Stable continue on SSRI Obesity - (E66.09) Current BMI -30 Sleep Apnea - LUPE - ((G47.33) Chronic condition and present on admission. I have resume home CPAP. and monitor on telemetry and continue pulse oximetry Follow LUPE postop Protocol while hospitalized. Wean off oxygen as tolerated, stable respiratory status since surgery History of COVID-19 infection May 2020. By history and resolved without reported sequela Anxiety - Chronic condition (F41.9) and present on admission controlled with home medications, which have been reordered. Sedation Parameters as needed with any use of benzodiazepine medications. Valium reported. Reports doing well this morning other than not sleeping at bedtime. Request her sleeping agent History of acute kidney injury (N17.9)- by previous recent history. Previous creatinine peaked out at at 4.5. And attributed previous use of vancomycin. However apparently made full recovery with creatinine preoperatively noted to be 1.0 on 2020-12-27 labs Elevated serum creatinine/consistent with recurrent acute kidney injury. Creatinine peaked at 2.4 on POD #1. 2 on 01/05/2021. 1.8 on 01/06/2021. Off IV fluids at this point. Have been continue to encourage oral hydration. Today's creatinine is one-point stable. Avoid nephrotoxic agents. Antibiotics per primary infectious disease service. Left adrenal mass. Noted on ultrasound imaging at outside facility due to renal issues 3.9 cm. Patient will need to follow-up with her surveillance physician/poultry tender post discharge Acute Post Hemorrhagic Anemia (D62) -received 2 units of PRBCs for HBG 6.8 on 01/05/2021. HBG 8.8 on 01 06. Today's hemoglobin 9.4. Doing well no indication for any additional transfusion requirements. Insomnia (F51.01) Chronic condition and controlled with home prescription medication, which have been reordered with sedation parameters. Patient prefers temazepam over trazodone and have made change. Medically acceptable for discharge if passing flatus, room air sat greater than 90%, meets PT goals, and acceptable to the surgical service and infectious disease. Home medication reconciliation completed, defer DVT prophylaxis, NSAIDs, anticoagulants, antibiotics, and pain medications to the surgical service. Supervising Physician Comments (more content not included)... [facility] 01-07-2021 Note ID NOW COVID-19_[facility]. [facility] 01-07-2021 Hospital Progress note Patient: TRINITY GODINEZ MRN: [id number] Age: 65 years Sex: Female : 1955 Associated Diagnoses: None Author: Shailesh VEGA , Grabiel Maciel Assessment 1. Knee: Status post reinsertion of her prosthesis. Intraoperative cultures pending, smears negative. Continuing clindamycin today. 2. Renal insufficiency: Creatinine 1.87 today. Gentamicin level resolved. Vancomycin level unmeasurable. I cannot seem to get a tobramycin level. This was placed in her cement. 3. Hyperkalemia: Resolved. 4. Disposition: PICC line removed yesterday and replaced today. Discharge plans are for release to inpatient rehabilitation. Medications reconciled. Grabiel Hicks MD Infectious Diseases Subjective Feeling better today. Objective Vital Signs (Past 36 Hours) Temp .8 (01/07 08:31) Min:(Temporal Artery) 97 (01/06 21:04) Max:(Temporal Artery) 98.6 (01/06 16:12) Pulse (01/07 08:31) Min: 69 (01/06 03:09) Max: 82 (01/06 11:13) Resp (01/07 04:33) Min: 14 (01/06 16:12) Max: 17 (01/06 21:04) Pulse Ox % (01/07 08:31) Min: 88 % (01/06 03:07) Max: 100 % (01/06 08:00) Pain Score (01/07 06:03) Min: 5 (01/06 13:50) Max: 8 (01/07 02:05) BP Last Charted: 138/80 (01/07 08:31) Systolic Min: 135/78 (01/07 04:33) Systolic Max: 187/84 (01/06 21:04) Diastolic Min: 135/78 (01/07 04:33) Diastolic Max: 183/93 (01/06 11:13) EXAMINATION: GENERAL: Comfortable, in no distress HEENT: symmetric, OP moist, no lesions NECK: Supple LUNGS: Breathing is unlabored, clear HEART: regular ABDOMEN: soft, non tender, BS normal EXTREMITY: minimal edema MENTAL STATUS: comfortable SKIN: No lesions noted WOUNDS: LINES: uncomplicated I have evaluated for the presence of nausea, vomiting, diarrhea, or rash, or IV site issues by personally discussing these with the patient. If the patient is unable, I have reviewed these with either the nurse or the electronic medical record. Pertinent findings can be found in impression and plan. Last Charted Vital Signs Temperature: 97.8 (01/07 08:31) Pulse: 75 (01/08 08:31) Respiration: 15 (01/07 04:33) BP: 138/80 (01/08 08:31) Pulse Ox: 93 (01/08 08:00) Oxygen Delivery: Room air (01/08 08:00) Pain Score: 7 (01/07 06:03) Results Review Labs - Last 36 hours (Max 2 / lab test) CHEMISTRY Sodium 141 (01/07 04:54) 140 (01/06 02:22) Potassium 4.5 (01/07 04:54) 4.8 (01/06 02:22) Chloride 107 (01/07 04:54) 107 (01/06 02:22) CO2 25 (01/07 04:54) 24 (01/06 02:22) Glucose 96 (01/07 04:54) 87 (01/06 02:22) Glucose POCT No result BUN 27 (01/07 04:54) 30 (01/06 02:22) Creatinine 1.87 (01/07 04:54) 1.82 (01/06 02:22) Calcium Total 8.8 (01/07 04:54) 8.6 (01/06 02:22) Magnesium No result HEMATOLOGY WBC No result RBC No result Hb 9.4 (01/06 02:22) Hematocrit 28.9 (01/06 02:22) Platelets No result MCV No result MCH No result RDW No result MCHC No result Neutrophil Ab No result Monocyte Ab No result Eosinophil Ab No result Basophil Ab No result Lymphocyte Ab No result COAGULATION INR 1.3 (01/07 04:54) 1.1 (01/06 02:22) Prothrombintime (PT) 15.7 Sec (01/08 04:54) 14.2 Sec (01/06 02:) OTHER LABS Est CrCl IBW (mL/min)-RX 32.18 mL/min (01/07 04:54) 33.06 mL/min (01/06 02:) BUN / Creatinine Ratio 14 (01/08 04:54) 16 (01/06 02:) Gentamicin Trough Level 1.0 (01/08 04:54) 3.9 (01/05 05:) Tobramycin Level SEE SEPARATE REPORT ug/mL (01/05) Vancomycin Random <3.5 ug/ml (01/05) WBC Count 7.5 thou/mcL (01/05) Red Blood Cell Count 2.50 X(10)6/mcL (01/05) MCV 85.5 FL (01/05) MCH 27.2 Picograms (01/05 05:) MCHC 31.8 gm/dL (01/05) RDW 16.0 % (10/06 05:22) Platelet Count 141 thou/mcL (01/05 05:22) MPV 10.5 FL (01/05 05:22) Diff Method AUTOMATED DIFFERENTIAL (01/05) Neutrophil Percent 76.1 % (01/05 05:) Lymphocyte Percent 12.7 % (01/0522) Monocyte Percent 8.1 % (01/05 05:) Eosinophil Percent 2.2 % (01/05 05:) Basophil Percent 0.9 % (01/05) Neutrophil Absolute 5.7 thou/mcL (01/05 05:22) Lymphocyte Absolute 0.9 thou/mcL (01/05 05:) Monocyte Absolute 0.6 thou/mcL (01/05 05:) Eosinophil Absolute 0.2 thou/mcL (01/05) Basophil Absolute 0.1 thou/mcL (01/05 05:) ABO Group A (01/05 05:) A (01/05 05:) Rh Type POSITIVE (01/05) POSITIVE (01/05 05:) Unit # [id number] (01/05 10:56) [id number] (01/05 10:56) List of X-rays performed in last 36 hours No X-rays charted within the last 36 hours I have reviewed the available microbiologic data available at the time (more content not included)... [facility] 01-06-2021 Hospital Progress note Patient: TRINITY GODINEZ MRN: [id number] Age: 65 years Sex: Female : 1955 Associated Diagnoses: None Author: Rogelio Leyva MD Assessment Assessment Diagnosis: Primary osteoarthritis of left knee ([id number] M17.12, Working, Medical), Unilateral primary osteoarthritis, left knee Unspecified osteoarthritis, unspecified site . Plan Osteoarthritis Left Knee/left knee infection with previous left knee radical debridement. Now status post left knee reimplant. POD 3 Management per primary surgical service. Please see below regarding details of medical comanagement Infectious disease following for antibiotic management. DVT prophylaxis is recommend as per current ACCP guidelines. She is at elevated risk due to past history of prior PE in 2019. Consideration should be given for use of Lovenox-at dose adjusted for renal, or Novel oral anticoagulant. This decision will be left to the discretion of the primary surgical service. Will encourage Venous return exercises. Patient has been restarted on Coumadin. INR today 1.1 Home medications have been reviewed and continued post surgery. Pain Control -reports improving. Continue current protocol. In addition we will continue gabapentin for neuropathic pain component. HTN (I10) Chronic condition and present on admission - controlled on home prescription medications, which have been reordered. Blood pressures reviewed and reasonable postop control. Hold parameters for low blood pressure. Continue PRN Clonidine for elevated blood pressure while in hospital. Most recent BP 146/87. Home BP medications include: Hydralazine, metoprolol and isosorbide mononitrate. Chronic Obstructive Pulmonary Disease ( J44.1) Chronic condition and present on admission. No pulmonary complaints. No bronchospasm noted on exam. Continue encourage incentive spirometer. A medication/bronchodilators have been reordered since surgery. Special note prehospitalization patient was reporting use of as needed O2 at bedtime at the [facility]. Nocturnal/supine desaturation. History of congestive heart failure. Diastolic.. Most recent echocardiogram reviewed on chart and previously reviewed from 2019-09-29 showed borderline concentric LVH. LVEF greater than 55%. No significant valvular abnormalities. Continues to appear clinically well compensated despite significant volume with IV fluids and transfusion over the last 48 hours. Have hep well IV fluids at this point. Continue to monitor while hospitalized GERD - (K21.9) Chronic condition and present on admission. Controlled with home prescription medications, which have been reordered. Continue PPI/or H2 cathryn. No reflux associated symptoms reported this morning. Depression - Chronic preexisting condition (F32.9) and present on admission. Controlled with home prescription medications, which have been reordered. Seems to be in good spirits despite her situation. Continue SSRI Obesity - (E66.09) Current BMI -30 Sleep Apnea - LUPE - ((G47.33) Chronic condition and present on admission. I have resume home CPAP. and monitor on telemetry and continue pulse oximetry Follow LUPE postop Protocol while hospitalized. Wean O2 as tolerated. Again encourage incentive Brimer this morning History of COVID-19 infection May 2020. By history and resolved without reported sequela Anxiety - Chronic condition (F41.9) and present on admission controlled with home medications, which have been reordered. Sedation Parameters as needed with any use of benzodiazepine medications. Valium reported. Reports doing well this morning. History of acute kidney injury (N17.9)- by previous recent history. Previous creatinine peaked out at at 4.5. And attributed previous use of vancomycin. However apparently made full recovery with creatinine preoperatively noted to be 1.0 on 2020-12-27 labs Elevated serum creatinine/consistent with recurrent acute kidney injury. Creatinine peaked at 2.4 on POD #1. Dropped to 2.0 on 01/05/2021.. Right and reduce further this morning down to 1.8. Received blood yesterday due to low hemoglobin. Will saline well IV fluids today. Continue to monitor while hospitalized. Suspect will recover with time. Avoid nephrotoxic agents. Antibiotics per primary infectious disease service. Left adrenal mass. Noted on ultrasound imaging at outside facility due to renal issues 3.9 cm. Patient will need to follow-up with her surveillance physician/poultry tender post discharge Acute Post Hemorrhagic Anemia (D62) -received 2 units of PRBCs for hemoglobin 6.8 on 01/05/2021. Hemoglobin 8.8 this morning adequate response. Tolerated transfusion well. No indication for additional transfusion. We will continue to monitor Hold discharge for today. Suspect would like to watch another 24 hours to make sure her renal function continues to improve. Probable plans for discharge to nursing home facility in the next 24 hours Supervising Physician Comments Documentation By: Consulting (more content not included)... [facility] 01-05-2021 Hospital Progress note Patient: TRINITY GODINEZ MRN: [id number] Age: 65 years Sex: Female : 1955 Associated Diagnoses: None Author: Rogelio Leyva MD Assessment Assessment Diagnosis: Primary osteoarthritis of left knee ([id number] M17.12, Working, Medical), Unilateral primary osteoarthritis, left knee Unspecified osteoarthritis, unspecified site . Plan Osteoarthritis Left Knee/left knee infection with previous left knee radical debridement. Now status post left knee reimplant. POD 2. Management per primary surgical service. Please see below regarding details of medical comanagement Infectious disease has been consulted for assistance with postoperative antibiotic management. DVT prophylaxis is recommend as per current ACCP guidelines. Due to additional risk factors-i.e. history of PE in 2019 consideration should be given for use of Lovenox-at dose adjusted for renal, or Novel oral anticoagulant. This decision will be left to the discretion of the primary surgical service. Will encourage Venous return exercises. Hospitalization had reported chronic use of Coumadin anticoagulant which was held for surgery. Home medications have been reviewed and continued post surgery. Pain Control -at this point reports moderate pain. We will continue current protocol. In addition we will continue gabapentin for neuropathic pain component. HTN (I10) Chronic condition and present on admission - controlled on home prescription medications, which have been reordered. Blood pressures reviewed and reasonable postop control. Hold parameters for low blood pressure. Continue PRN Clonidine for elevated blood pressure while in hospital. Recent blood pressures reviewed 156/78. Pain may be playing some role. Home BP medications include: Hydralazine, metoprolol and isosorbide mononitrate. Chronic Obstructive Pulmonary Disease ( J44.1) Chronic condition and present on admission. Remains asymptomatic. No bronchospasm again on exam today. We will continue home prescription medications and /or /inhalers, and have ordered Duo Nebs PRN SOB, PRN SOB/Wheezing. Strongly encourage incentive spirometry. Special note prehospitalization patient was reporting use of as needed O2 at bedtime at the [facility]. Nocturnal/supine desaturation. History of congestive heart failure. Not further specified. Suspected diastolic. Most recent echocardiogram reviewed on chart and previously reviewed from 2019-09-29 showed borderline concentric LVH. LVEF greater than 55%. No significant valvular abnormalities. Remains compensated on exam today. We will watch with blood volume needed today. Continue to monitor while hospitalized. GERD - (K21.9) Chronic condition and present on admission. Controlled with home prescription medications, which have been reordered. Continue PPI/or H2 cathryn. Remains asymptomatic. Continue home prescription medications. Depression - Chronic preexisting condition (F32.9) and present on admission. Controlled with home prescription medications, which have been reordered. Seems to be in good spirits despite her situation. Continue SSRI Obesity - (E66.09) Current BMI -30 Sleep Apnea - LUPE - ((G47.33) Chronic condition and present on admission. I have resume home CPAP. and monitor on telemetry and continue pulse oximetry Follow LUPE postop Protocol while hospitalized. Continue to wean O2 as tolerated. Encouraged I-S History of COVID-19 infection May 2020. By history and resolved without reported sequela Anxiety - Chronic condition (F41.9) and present on admission controlled with home medications, which have been reordered. Sedation Parameters as needed with any use of benzodiazepine medications. Valium reported. Reports doing well this morning. History of acute kidney injury (N17.9)- by previous recent history. Previous creatinine peaked out at at 4.5. And attributed previous use of vancomycin. However apparently made full recovery with creatinine preoperatively noted to be 1.0 on 2020-12-2712-27 labs Elevated serum creatinine/consistent with recurrent acute kidney injury. Creatinine peaked at 2.4 on POD #1. Down this morning to 2.0. Continue on IV fluid hydration. Recent previous serum creatinine was 1.0 on 12/27/2020. We will give additional IV fluid hydration. Change lactated Ringer's to 0.9 normal saline. Have infectious disease address previous ID following for antibiotics. Patient also received IV gent preoperatively 300 mg dose. Try to avoid nephrotoxic agents.-I.e. aminoglycoside and NSAIDs/Medina 2 inhibitors. Will need to continue to monitor closely and continue to follow renal function and urine output. Get have left Johnson in today to continue to monitor renal function/urine output closely. Blood volume will help increase perfusion to kidneys. Hyperkalemia -was 5.7 on POD one. Today down to 4.7 with IV fluid hydration. No longer on LR. Continue to monitor while hospitalized Left adrenal mass. Noted on ultrasound imaging at outside facility due to renal issue (more content not included)... [facility] 01-05-2021 Hospital Progress note Patient: TRINITY GODINEZ MRN: [id number] Age: 65 years Sex: Female : 1955 Associated Diagnoses: None Author: Shailesh VEGA , Grabiel Maciel Assessment 1. Knee: Status post reinsertion of her prosthesis. Intraoperative cultures pending, smears negative. Continuing clindamycin today. 2. Renal insufficiency: Creatinine 2.05 today. This is lower than her most recent level at the end of December. Checking levels of nephrotoxic medication she has received in the last 48 hours. 3. Hyperkalemia: Resolved. 4. Disposition: Anticipating a few weeks of IV clindamycin after discharge. Discussed with patient and case management. Grabiel Hicks MD Infectious Diseases Supervising Physician Comments Documentation By: Consulting Physician. Subjective Anorectic this morning. Objective Vital Signs (Past 36 Hours) Temp .2 (01/05 07:44) Min: 96.6 (01/04 04:58) Max: 99 (01/05 06:43) Pulse (01/05 07:44) Min: 62 (01/03 21:10) Max: 90 (01/05 06:43) Resp (01/05 07:44) Min: 12 (01/05 06:43) Max: 16 (01/05 03:30) Pulse Ox % (01/05 07:44) Min: 86 % (01/04 20:24) Max: 100 % (01/05 07:44) Pain Score (01/05 03:30) Min: 3 (01/05 00:15) Max: 8 (01/05 03:30) BP Last Charted: 156/78 (01/05 07:44) Systolic Min: 102/52 (01/04 04:58) Systolic Max: 156/78 (01/05 07:44) Diastolic Min: 105/48 (01/04 08:29) Diastolic Max: 150/81 (01/05 03:30) EXAMINATION: GENERAL: Comfortable, in no distress HEENT: symmetric, OP moist, no lesions NECK: Supple LUNGS: Breathing is unlabored, clear HEART: regular ABDOMEN: soft, non tender, BS normal EXTREMITY: minimal edema MENTAL STATUS: comfortable SKIN: No lesions noted WOUNDS: LINES: uncomplicated I have evaluated for the presence of nausea, vomiting, diarrhea, or rash, or IV site issues by personally discussing these with the patient. If the patient is unable, I have reviewed these with either the nurse or the electronic medical record. Pertinent findings can be found in impression and plan. Last Charted Vital Signs Temperature: 98.2 (01/05 07:44) Pulse: 87 (01/05 07:44) Respiration: 14 (01/05 07:44) BP: 156/78 (01/05 07:44) Activity: Resting (01/05 07:44) Pulse Ox: 100 (01/05 07:44) Oxygen Delivery: Nasal cannula (10/06 03:30) O2 Device Flow: 2 L/min Pain Score: 8 (01/05 03:30) Results Review Labs - Last 36 hours (Max 2 / lab test) CHEMISTRY Sodium 141 (01/05 05:22) 138 (01/04 05:) Potassium 4.7 (01/05 05:) 5.7 (01/04 05:) Chloride 108 (01/05) 104 (01/04 05:) CO2 27 (01/05) 26 (01/04 05:) Glucose 91 (01/05 05:) 90 (01/04 05:) Glucose POCT No result BUN 36 (01/05 05:) 45 (01/04 05:) Creatinine 2.05 (01/05 05:) 2.32 (01/04 05:) Calcium Total 8.1 (01/05) 8.5 (01/04 05:) Magnesium No result HEMATOLOGY WBC 7.5 (01/05 05:22) 7.3 (01/04 05:) RBC 2.50 (01/05 05:) 2.75 (01/04 05:) Hb 6.8 (01/05 05:) 7.5 (01/04 05:) Hematocrit 21.4 (01/05 05:) 23.5 (01/04 05:) Platelets 141 (01/05 05:) 167 (01/04 05:07) MCV 85.5 (01/05 05:22) 85.5 (01/04 05:07) MCH 27.2 (01/05) 27.4 (01/04) RDW 16.0 (01/05) 15.5 (01/04) MCHC 31.8 (01/05) 32.0 (01/04) Neutrophil Ab 5.7 (01/05) 5.8 (01/04) Monocyte Ab 0.6 (01/05) 0.6 (01/04) Eosinophil Ab 0.2 (01/05) 0.0 (01/04) Basophil Ab 0.1 (01/05) 0.0 (01/04) Lymphocyte Ab 0.9 (01/05) 1.0 (01/04) COAGULATION Partial Thromboplastin (aPTT) 25.0 Sec (01/03) INR 1.1 (01/05) 1.0 (01/04) Prothrombintime (PT) 14.5 Sec (01/05) 13.6 Sec (01/04) OTHER LABS Est CrCl IBW (mL/min)-RX 29.35 mL/min (01/05) 25.94 mL/min (01/04) BUN / Creatinine Ratio 18 (01/05) 19 (01/04) Vancomycin Random <3.5 ug/ml (01/05) MPV 10.5 FL (01/05) 10.5 FL (01/04 05:) Diff Method AUTOMATED DIFFERENTIAL (01/05) AUTOMATED DIFFERENTIAL (01/04) Neutrophil Percent 76.1 % (01/05) 78.7 % (01/04 05:07) Lymphocyte Percent 12.7 % (01/05) 13.3 % (01/04 05:07) Monocyte Percent 8.1 % (01/05) 7.5 % (01/04 05:) Eosinophil Percent 2.2 % (01/05) 0.2 % (01/04 05:07) Basophil Percent 0.9 % (01/05) 0.3 % (01/04 05:07) ABO Group A (01/05) A (01/05) Rh Type POSITIVE (01/05) POSITIVE (01/05) Antibody Screen NEGATIVE (01/03 10:05) NEGATIVE (01/03 10:05) Unit # [id number] (01/05 06:44) [id number] (01/0544) List of X-rays performed in l (more content not included)... 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 PROCEDURE: Left total knee revision and reimplantation utilizing the Link prosthesis. We used a medium rotating hinged Link. We used an 18.5 cement restrictor on the tibia and a 25 mm cement restrictor on the femur. We used a Embrace size D tibial cone. Fixation is Biomet bone cement mixed with 1 g vancomycin. This is the gentamicin laden Biomet cement mixed with 1 g vancomycin. SURGEON: Calos Smith MD MEDICAL TECHNICAL WRITER: MD Satish Cheng MD assisted with proper preoperative positioning, preoperative templating, determining availability of proper implants, prepping and draping of patient, manipulation placement of instruments, protection of ligaments and vital soft tissue structures, assistance in maintaining hemostasis, and assistance with closure of the wound. His skills and knowledge of the steps of the operation and the desired outcome of each surgical step was crucial, allowing for efficient choreography of surgical procedure, and closure of the wound which lead to reduced surgical time, less blood loss, and less risk of complications for the patient. ANESTHESIA: General with adductor canal and iPACK block. ESTIMATED BLOOD LOSS: 75 mL. FLUIDS: 2004 mL. TOURNIQUET TIME: 61 minutes. Intraoperative white blood cell count is 4700. Postop roentgenographs showed satisfactory position and alignment of components. HISTORY AND REPORT: The patient is a 65-year-old female who presents to us with long history involving her left knee. She had undergone primary knee subsequent infection requiring a debridement and then ultimately a gastroc flap. So at this point, we had proceeded to perform an incision, drainage, debridement, removal of the implant, placement of the prosthesis of antibiotic laden acrylic cement. She was treated with IV antibiotics and she now presents for revision and reimplantation. Her inflammatory markers were trending downward and it was felt that this was the most prudent time. So she was cleared by General Medical consultants, admitted to [facility]. At this point, she was seen by the Anesthesia Department, seen by myself. I signed the consent, marked the extremity, discussed the procedure. Adductor canal and iPACK block placed in preop holding area. DESCRIPTION OF PROCEDURE: The patient was taken back to the OR. After suitable and adequate induction of general anesthesia, she was positioned supine. We prepped and draped then the left knee and left lower extremity using a standard prep, centered the patient in the operating room. We now approached the left knee from the midline incision utilizing our previous incision and elevating the gastroc flap medially. We then performed a medial parapatellar arthrotomy which allowed us to expose the knee. We had previously exposed with a femoral peel approach and we did the same today. This allowed us then to get exposure of the distal femur, proximal tibia and remove the prosthesis of antibiotic laden acrylic cement, curetted and debrided the femoral and tibial canals, and then sized the construct to the medium Link. So, we reresected the tibia 90 degrees to the axis and at this point, we broached the femoral and tibial canals. We sized up for the medium Link, we seated the medium component on the tibia. We took our reamers from [place] and created the cone for this enhanced fixation of the tibia. We sized the centralizer to the 14. For the femur, we sized the medium. We created intercondylar resection 90 degrees in line with the transepicondylar axis and perpendicular to the wide size line. So we sized that to a 16 mm centralizer and we placed the medium components and articulated the components and they were stable. So, now we removed these components, we plugged the tibial canal with an 18.5, the femur with a 25. We had the centralizer, 16 for the femur and 14 for the tibia, which we assembled. We mixed the Biomet bone cement with gentamicin with 1 g vancomycin and we pressurized into the tibia and the femur, cementing these [address], removing all the extraneous cement. We then articulated the components and placed the antiluxation polyethylene. At this point, we performed a rather extensive lateral retinacular release to facilitate tracking of the patella and so we did a proximal realignment of the extensor mechanism reefing the vastus medialis obliques laterally and distally. We ap (more content not included)... [facility] 01-04-2021 Hospital Progress note Patient: TRINITY GODINEZ MRN: [id number] Age: 65 years Sex: Female : 1955 Associated Diagnoses: None Author: Rogelio Leyva MD Assessment Assessment Diagnosis: Primary osteoarthritis of left knee ([id number] M17.12, Working, Medical), Unspecified osteoarthritis, unspecified site . Plan Osteoarthritis Left Knee/left knee infection with previous left knee radical debridement., Now status post left knee reimplant. Management per primary surgical service. Please see below regarding details of medical comanagement Infectious disease has been consulted for assistance with postoperative antibiotic management. DVT prophylaxis is recommend as per current ACCP guidelines. Due to additional risk factors-i.e. history of PE in 2019 consideration should be given for use of Lovenox-at dose adjusted for renal, or Novel oral anticoagulant. This decision will be left to the discretion of the primary surgical service. Will encourage Venous return exercises. Hospitalization had reported chronic use of Coumadin anticoagulant which was held for surgery. Home medications have been reviewed and continued post surgery. Pain Control - reasonable and controlled on Meds Continue postop protocol. In addition we will continue gabapentin for neuropathic pain component. HTN (I10) Chronic condition and present on admission - controlled on home prescription medications, which have been reordered. Blood pressures reviewed and reasonable postop control. Hold parameters for low blood pressure. Continue PRN Clonidine for elevated blood pressure while in hospital. Last BP -102/52 Home BP medications include: Hydralazine, metoprolol and isosorbide mononitrate. Chronic Obstructive Pulmonary Disease ( J44.1) Chronic condition and present on admission. Reports that well overnight denies significant respiratory issues this morning. No evidence of bronchospasm on current exam. I have resumed home prescription medications and /or /inhalers, and have ordered Duo Nebs PRN SOB, PRN SOB/Wheezing. Strongly encourage incentive spirometry. Special note prehospitalization patient was reporting use of as needed O2 at bedtime at the [facility]. Nocturnal/supine desaturation. History of congestive heart failure. Not further specified. Suspect diastolic. Most recent echocardiogram reviewed on chart and previously reviewed from 2019-09-29 showed borderline concentric LVH. LVEF greater than 55%. No significant valvular abnormalities. Remains well compensated at this point. Continue to monitor while hospitalized. GERD - (K21.9) Chronic condition and present on admission. Controlled with home prescription medications, which have been reordered. Continue PPI/or H2 cathryn. Denies GI signs or symptoms this morning Depression - Chronic preexisting condition (F32.9) and present on admission. Controlled with home prescription medications, which have been reordered. Reports in good spirits this morning. Continue SSRI Obesity - (E66.09) Current BMI -30 -wean off oxygen as tolerated, stable respiratory status since surgery Sleep Apnea - LUPE - ((G47.33) Chronic condition and present on admission. I have resume home CPAP. and monitor on telemetry and continue pulse oximetry Follow LUPE postop Protocol - Have adjusted narcotics correspondingly. Respiratory 1 History of COVID-19 infection May 2020. By history and resolved without reported sequela Anxiety - Chronic condition (F41.9) and present on admission controlled with home medications, which have been reordered. Sedation Parameters as needed with any use of benzodiazepine medications. Valium reported. Reports doing well this morning states her anxiety is controlled History of acute kidney injury (N17.9)- by previous recent history. Previous creatinine peaked out at at 4.5. And attributed previous use of vancomycin. However apparently made full recovery with creatinine preoperatively noted to be 1.0 on 2020-12-27 labs Elevated serum creatinine/recurrent acute kidney injury. Creatinine now 2.4. Recent previous serum creatinine was 1.0 on 12/27/2020. We will give additional IV fluid hydration. Change lactated Ringer's to 0.9 normal saline. Have infectious disease address previous vancomycin pharmacy prescription which should be discontinued given her allergy. She has not received Vanco this hospitalization. She is now on clindamycin. . Patient also received IV gent preoperatively 300 mg dose. Try to avoid nephrotoxic agents.-I.e. aminoglycoside and NSAIDs/Medina 2 inhibitors. Will need to continue to monitor closely and continue to follow renal function and urine output. Have discussed with nursing staff will leave Johnson in today to help monitor urine output.. Hyperkalemia in the setting of acute kidney injury. Potassium 5.7 this morning. On no potassium supplements. Change LR to 0.9 normal saline. Continue to monitor. Follow-up potassium Left adrenal mass. Noted on ultrasound imaging at outside facility due to renal issues 3.9 cm. Patient (more content not included)... [facility] 01-03-2021 History and physical note Patient: TRINITY GODINEZ MRN: [id number] Age: 65 years Sex: Female : 1955 Associated Diagnoses: None Author: Rogelio Leyva MD Impression Diagnosis Chronic osteoarthritis ([id number] M19.90, 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 Plan Osteoarthritis Left Knee/left knee infection with previous left knee radical debridement., Now status post left knee reimplant. Management per primary surgical service. Please see below regarding details of medical comanagement Infectious disease has been consulted for assistance with postoperative antibiotic management. DVT prophylaxis is recommend as per current ACCP guidelines. Due to additional risk factors-i.e. history of PE in 2019 consideration should be given for use of Lovenox, Arixtra, or Novel oral anticoagulant. This decision will be left to the discretion of the primary surgical service. Will encourage Venous return exercises. Hospitalization had reported chronic use of Coumadin anticoagulant which was held for surgery. Home prescription Meds have been reviewed & ordered & I have completed postop pain medications -multimodality pain medications have been ordered including parenteral opiates. Prehospitalization did report use of Percocet 5 Edition continue gabapentin for neuropathic pain component. HTN (I10) Chronic condition & present on admission - controlled on home prescription medications, which have been reordered. Hold parameters for low blood pressure. Have added PRN Clonidine for elevated blood pressure while in hospital. Home BP medications include: Dralzine, metoprolol and isosorbide mononitrate. Chronic Obstructive Pulmonary Disease ( J44.1) Chronic condition & present on admission. Currently appears comfortable with SOB or active bronchospasm on exam. I have resumed home prescription medications &/or /inhalers, and have ordered Duo Nebs PRN SOB, PRN SOB/Wheezing. Strongly encourage incentive spirometry. History of congestive heart failure. Not further specified. Suspect diastolic. Most recent echocardiogram reviewed on chart from 2019-09-29 showed borderline concentric LVH. LVEF greater than 55%. No significant valvular abnormalities. There is to be clinically well compensated. We will continue to monitor while hospitalized Chronic Obstructive Pulmonary Disease/asthma chronic condition & present on admission. Currently appears comfortable with SOB or active bronchospasm on exam. I have resumed home prescription medications &/or /inhalers, and have ordered Duo Nebs PRN SOB, PRN SOB/Wheezing. Strongly encourage incentive spirometry. Special note prehospitalization patient was reporting use of as needed O2 at bedtime at the [facility]. Nocturnal/supine desaturation. GERD - (K21.9) Chronic condition and present on admission. Controlled with home prescription medications, which have been reordered. Continuation of PPI/or H2 cathryn to reduce risk of aspiration related complications. Depression - Chronic preexisting condition (F32.9) and present on admission. Controlled with home prescription medications, which have been reordered. SSRI Obesity - (E66.09) Current BMI -30 - Recommend monitoring of resp status closely postoperatively & close attention to narcotics. Sleep Apnea - LUPE - ((G47.33) Chronic condition & present on admission. Stable respiratory status in PACU. I have resume home CPAP. & monitor on telemetry and continue pulse oximetry Follow LUPE postop Protocol - Have adjusted narcotics correspondingly History of COVID-19 infection May 2020. By history Anxiety - Chronic condition (F41.9) and present on admission controlled with home medications, which have been reordered. Sedation Parameters as needed with any use of benzodiazepine medications. Valium reported History of acute kidney injury (N17.9)- by previous recent history. Previous creatinine peaked out at at 4.5. And attributed previous use of vancomycin. However apparently made full recovery with creatinine preoperatively noted to be 1.0 on 2020-12-27 labs Left adrenal mass. Noted on ultrasound imaging at outside facility due to renal issues 3.9 cm. Patient will need to follow-up with her surveillance physician/poultry tender post discharge Supervising Physician Comments Documentation By: Consulting Physician. Chief Complaint Postop Medical Co management History of Present Illness 65 y/o F who is S/P Left TK revision by Dr. Smith who requests post op medical management. Patient seen and examined, Chart reviewed in PACU. I have reviewed H&P, preop labs & EKG Patient unable to provide much details. Anesthesia Sheet Reviewed - General SBP -upper 90s IVF -2400 mL U/O- Johnson in place. 350 mL noted EBL - 75 mL reported Dexamethasone 10 mg noted given Discussed with MATERIALS TECHNICIAN Subjective: Rates pain currently -none currently early PACU No nausea, vomiting No Chest pain, sob Past Medical History CHF HTN COPD O2 prn-while in group home, her O2 sat drops when laying down Asthma LUPE Anxiety Depression GERD Recent mechanical fall with left sided rib fractures 11/20 h/o PE approximately 2 years ago-she reports unprovoked +COVID 19 05/23-she was hospitalized PICC line right UE-followed by Dr. Hicks infectious disease SABAS d/t vancomycin-creat 4.5 then up to 5.9-now 1.0 Nephrology c/s Dr. Melendez Active Anxiety CHF (congestive heart failure) COPD (chronic obstructive pulmonary disease) Depression Hypertension Osteoarthritis PE (pulmonary thromboembolism) - 2018 Peripherally inserted central catheter in place - R UE 4FR SL PICC Resolved COVID-19 - 05/2020 Surgical History Anesthesia History Reactions (Self): Reactions (Family): Transfusion Reactions: Bleeding Tendencies: Surgical/Procedure Hx Revision of knee arthroplasty ([id number]) on 01/03/2021 at 65 Years. Comments: 01/03/2021 13:17 NEIDA Hinson RN , Zoya Berrios Left knee reimplantation Debridement ([id number]) on 11/19/2020 at 65 Years. Comments: 11/19/2020 13:02 NEIDA Mcclain RN , Cortes Gibbs RADICAL KNEE JOINT DEBRIDEMENT Bilateral staged hip replacement 2014 Left TKA 2019 Left knee skin grafting 2019 Right sided rib resection 1984 Hysterectomy 1999 Appy 1976 Right ulnar nerve decompression 1986 Cataract ext Health Status Allergies NSAIDs: Severe, Anaphylactic reaction Ancef: Severe, Anaphylactic reaction morphine: Moderate, Itching vancomycin: Severe, Kidney Medication List (Selected) Inpatient Medications Ordered Lactated Ringers 1,000 mL: 100 mL/hr, IV, Stop: 02/02/21 11:45:00 EDT Lactated Ringers 1,000 mL: 20 mL/hr, IV, Stop: 01/30/21 7:34:00 EDT Narcan*: 0.04 mg, IV Push, Q1min, PRN: See Comments Sublimaze: 50 mcg, IV Push, Q5min, PRN: Pain/Discomfort Zofran Inj*: 4 mg, IV Push, Q6h, PRN: See Comments aspirin: 81 mg, PO, BID clindamycin: 900 mg, IVPB, Q8h oxygen: 1 Each, Inhalation, Daily oxygen: 1 Each, Inhalation, Daily Suspended Metoprolol Succinate XL: 100 mg, PO, Daily Monistat Derm 2% Cream: 1 Appl, Topical, BID Spiriva Inh: 1 Inh, Inhalation, Daily Ventolin HFA 90 mcg/Puff MDI: 2 Puff, Inhalation, Q4h, PRN: Shortness of Breath diazePAM: 2 mg, PO, BID, PRN: Anxiety gabapentin: 600 mg, PO, BID Prescriptions Prescribed Dr. Hicks's Orders:: See Instructions, 1)Picc Care 2)Qmon CBC,SR,Creat,CRP, Vanco Trough, fax to Dr. Hicks [phone] 3)IV ATB UNTIL reimplant 4)Call Dr. Hicks for F/C/S, N/V/D, rash, 5)F/U with Dr Hicks in 4-5 weeks, 1 Each, 0 Refill(s) vancomycin 1 g/250 mL intravenous solution: 1 Gm, IV, Q12h, for 56 Day(s), 1 Each, 0 Refill(s) Documented Medications Documented Coumadin 3 mg oral tablet: 1 Tab, PO, Daily, am, Each, 0 Refill(s) HydrALAZINE: IV, Q4h, 10 ml / 0.5 ml iv, PRN: hypertension, Each, 0 Refill(s) Maalox Plus 200 mg-200 mg-20 mg/5 ml oral suspension: 30 mL, PO, Q4h, PRN: heartburn, Each, 0 Refill(s) Metoprolol Succinate ER 100 mg oral tablet, extended release: 1 Tab, PO, Daily, am, Each, 0 Refill(s) MiraLax oral powder for reconstitution: 17 Gm, PO, Daily, PRN: Constipation, Each, 0 Refill(s) Percocet 5 mg/325 m to 2 tablets, PO, Q4h, PRN: Pain/Discomfort, Each, 0 Refill(s) Tudorza Pressair 400 mcg/inh inhalation powder: 1 Puff, Inhalation, Daily, am, Each, 0 Refill(s) Tylenol Arthritis Caplet 650 mg oral tablet: 1 Tab, PO, Q4h, PRN: Pain/Discomfort, Each, 0 Refill(s) Valium 2 mg oral tablet: 1 Tab, PO, BID, PRN: anxiety, Each, 0 Refill(s) Ventolin HFA 90 mcg/Puff MDI: 2 Puff, Inhalation, Q6h, PRN: Shortness of Breath, Each, 0 Refill(s) albuterol 2.5 mg/3 mL (0.083%) inhalation solution: 3 mL, Nebul, Q2h, PRN: Shortness of Breath, Each, 0 Refill(s) dextromethorphan-guaiFENesin 20 mg-200 mg/10 mL oral liquid: 10 mL, PO, Q6h, PRN: cough, Each, 0 Refill(s) gabapentin 600 mg oral tablet: 1 Tab, PO, BID, Each, 0 Refill(s) hyoscyamine 0.125 mg sublingual tablet: 1 Tab, Subl, QID, PRN: gi upset, Each, 0 Refill(s) isosorbide mononitrate 60 mg oral tablet, extended release: 1 Tab, PO, Daily, am, Each, 0 Refill(s) ketoconazole topical 2% cream: Apply, Topical, BID, Each, 0 Refill(s) midodrine 5 mg oral tablet: 1 Tab, PO, TID, Each, 0 Refill(s) multivitamin: 1 Tab, PO, Daily, with folic acid, Tab, 0 Refill(s) nitroglycerin 0.4 mg sublingual tablet: 1 Tab, Subl, Q5min, PRN: Chest Pain, Each, 0 Refill(s) promethazine 25 mg oral tablet: 1 Tab, PO, Q4h, PRN: nausea, Each, 0 Refill(s) sevelamer 800 mg oral tablet: 1 Tab, PO, w/meals TID, Each, 0 Refill(s) sucralfate 1 gm oral tablet: 1 Tab, PO, ac+bedtime, Each, 0 Refill(s) temazepam 30 mg oral capsule: 1 Cap, PO, Bedtime, Each, 0 Refill(s) traMADol 50 mg oral tablet: 1 Tab, PO, Q6h, PRN: Pain/Discomfort, Each, 0 Refill(s) venlafaxine 150 mg oral capsule, extended release: 1 Cap, PO, Daily, am, Each, 0 Refill(s) venlafaxine 75 mg oral capsule, extended release: 1 Cap, PO, Daily, am, Each, 0 Refill(s) Social History Tobacco Trying to quit-has had 1/2 cigarette in the past 3 weeks Social Habits History Social & Psychosocial Habits Alcohol 11/16/2020 Risk Assessment: Denies Alcohol Use Home/Environment 11/16/2020 Lives with: grandson Living situation: Home/Independent Current Sensory Status glasses, upper denture Home equipment: Walker/Cane, Wheelchair Nutrition/Health (Ambulatory) 11/16/2020 Home Diet: No restrictions Substance Abuse 11/16/2020 Risk Assessment: Denies Substance Abuse Family History Family Hx Family history reviewed. Negative for CAD, DVT, DM or anesthesia complication Review of Systems Review of Systems Limited d/t GETT/pain medications- seen in PACU Neurologic: denies new focal weakness. Cardiovascular: denies chest pain. Respiratory: denies dyspnea. Gastrointestinal: denies abdominal pain. Physical Examination Last Charted Vital Signs Temperature: 97 (01/03 14:45) Pulse: 95 (01/03 14:45) Respiration: 17 (01/03 14:45) BP: 176/60 (01/03 14:45) Pulse Ox: 100 (01/03 14:45) Oxygen Delivery: Nasal cannula (01/03 14:45) O2 Device Flow: 3 L/min Pain Score: 0 (01/03 14:45) EXAM: General - No Apparent Distress, somnolent but arouses easily Skin - No Rash, Normal Turgor Eyes - Pupils Equal, Conjunctiva Clear ENT - External Ears Normal, Hearing Normal Neck - Trachea Midline, No TMG Cardiovascular - Regular Rate and Rhythm, No Murmurs, Gallops, or Rubs, No Peripheral Edema Respiratory - CTA, Normal Resp. Effort GI - Soft Nontender, Hypoactive early bowel Sounds, No Hepatosplenomegaly Musculoskeletal - Good DF/PF bilaterally, No Calf Tenderness. Left knee is currently wrapped. Splint in place. Neuro/Psych - Somnolent but arouses easily, & follows simple commands, Appropriate Mood and Affect Results Review 12/27/20 and reviewed on chart Sodium 138 K+ 4.8 Creat 1.0 Glucose 73 WBC 7.4 HGB 8.8 PLT 307 EKG 12/27/20 EKG read and interpreted independently today reveals normal sinus rhythm, rate 73, with no ischemia or prior infarction. CXR 12/27/20 Right basilar atelectasis. Findings are improved overall compared to 11/29/20 Echo 09/29/2019-Global LV systolic function is normal. Borderline left ventricular hypertrophy. Mild left atrial dilation. The right ventricle is normal in size and systolic function. No significant valvular abnormalities.. Reviewed on chart Renal U/S 12/07/20-3.9 cm left adrenal mass. Mild bilateral renal cortical atrophy with no acute abnormality. Post void urinary bladder volume 17 ml Labs - Last 36 hours (Max 2 / lab test) CHEMISTRY Sodium No result Potassium No result Chloride No result CO2 No result Glucose No result Glucose POCT 82 (01/03 10:35) BUN No result Creatinine No result Calcium Total No result Magnesium No result HEMATOLOGY WBC No result RBC No result Hb 10.4 (01/03 10:05) Hematocrit 31.6 (01/03 10:05) Platelets No result MCV No result MCH No result RDW No result MCHC No result Neutrophil Ab No result Monocyte Ab No result Eosinophil Ab No result Basophil Ab No result Lymphocyte Ab No result COAGULATION Partial Thromboplastin (aPTT) 25.0 Sec (01/03 10:05) INR 1.1 (01/03 10:05) Prothrombintime (PT) 13.7 Sec (01/03 10:05) OTHER LABS Rh Type A POSITIVE (01/03 10:05) A POSITIVE (01/03 10:05) Antibody Screen NEGATIVE (01/03 10:05) NEGATIVE (01/03 10:05) List of X-rays performed in last 36 hours XR Knee 1-2 Views LT: 01/03/21 11:49:59 See Radiology Report for More Detail Patient: TRINITY GODINEZ MRN: ([id number] Age: 65 years Sex: Female : 1955 Associated Diagnoses: None Author: Alicia Connell RN Impression Diagnosis Chronic osteoarthritis (COA05-IQ M19.90, 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 Plan Supervising Physician Comments Documentation By: Consulting Physician. Chief Complaint Postop Medical Co management History of Present Illness 65 y/o F who is S/P Left TK revision by Dr. Smith who requests post op medical management. Data obtained from pre op H&P. Past Medical History CHF HTN COPD O2 prn-while in group home, her O2 sat drops when laying down Asthma LUPE Anxiety Depression GERD Recent mechanical fall with left sided rib fractures 11/20 h/o PE approximately 2 years ago-she reports unprovoked +COVID 19 05/23-she was hospitalized PICC line right UE-followed by Dr. Hicks infectious disease SABAS d/t vancomycin-creat 4.5 then up to 5.9-now 1.0 Nephrology c/s Dr. Melendez Surgical History Anesthesia History Reactions (Self): Reactions (Family): Transfusion Reactions: Bleeding Tendencies: Surgical/Procedure Hx Debridement (SNOMED CT [id number]) performed by Ming Quinn MD , [place] on 11/19/2020 at 65 Years. Comments: 11/19/2020 13:02 EDT - Sarahi BERMUDEZ , Cortes Gibbs RADICAL KNEE JOINT DEBRIDEMENT Bilateral staged hip replacement 2014 Left TKA 2019 Left knee skin grafting 2019 Right sided rib resection 1984 Hysterectomy 1998 Appy 1976 Right ulnar nerve decompression 1986 Cataract ext Health Status Allergies NSAIDs: Severe, Anaphylactic reaction Ancef: Severe, Anaphylactic reaction morphine: Moderate, Itching vancomycin: Severe, Kidney Medication List (Selected) Inpatient Medications Ordered Lactated Ringers 1,000 mL: 20 mL/hr, IV, Stop: 01/30/21 7:34:00 EDT gentamicin: 380 mg, 9.5 mL, 100 mL/hr, IVPB, Pre-Procedure lidocaine: 2 mg, IntraDermal, Pre-Procedure tranexamic acid: 1,000 mg, IV Push, Pre-Procedure Suspended Metoprolol Succinate XL: 100 mg, PO, Daily Monistat Derm 2% Cream: 1 Appl, Topical, BID Spiriva Inh: 1 Inh, Inhalation, Daily Ventolin HFA 90 mcg/Puff MDI: 2 Puff, Inhalation, Q4h, PRN: Shortness of Breath diazePAM: 2 mg, PO, BID, PRN: Anxiety gabapentin: 600 mg, PO, BID Prescriptions Prescribed Dr. Hicks's Orders:: See Instructions, 1)Picc Care 2)Qmon CBC,SR,Creat,CRP, Vanco Trough, fax to Dr. Hicks [phone] 3)IV ATB UNTIL reimplant 4)Call Dr. Hicks for F/C/S, N/V/D, rash, 5)F/U with Dr Hicks in 4-5 weeks, 1 Each, 0 Refill(s) vancomycin 1 g/250 mL intravenous solution: 1 Gm, IV, Q12h, for 56 Day(s), 1 Each, 0 Refill(s) Documented Medications Documented Coumadin 3 mg oral tablet: 1 Tab, PO, Daily, am, Each, 0 Refill(s) HydrALAZINE: IV, Q4h, 10 ml / 0.5 ml iv, PRN: hypertension, Each, 0 Refill(s) Maalox Plus 200 mg-200 mg-20 mg/5 ml oral suspension: 30 mL, PO, Q4h, PRN: heartburn, Each, 0 Refill(s) Metoprolol Succinate ER 100 mg oral tablet, extended release: 1 Tab, PO, Daily, am, Each, 0 Refill(s) MiraLax oral powder for reconstitution: 17 Gm, PO, Daily, PRN: Constipation, Each, 0 Refill(s) Percocet 5 mg/325 m to 2 tablets, PO, Q4h, PRN: Pain/Discomfort, Each, 0 Refill(s) Tudorza Pressair 400 mcg/inh inhalation powder: 1 Puff, Inhalation, Daily, am, Each, 0 Refill(s) Tylenol Arthritis Caplet 650 mg oral tablet: 1 Tab, PO, Q4h, PRN: Pain/Discomfort, Each, 0 Refill(s) Valium 2 mg oral tablet: 1 Tab, PO, BID, PRN: anxiety, Each, 0 Refill(s) Ventolin HFA 90 mcg/Puff MDI: 2 Puff, Inhalation, Q6h, PRN: Shortness of Breath, Each, 0 Refill(s) albuterol 2.5 mg/3 mL (0.083%) inhalation solution: 3 mL, Nebul, Q2h, PRN: Shortness of Breath, Each, 0 Refill(s) dextromethorphan-guaiFENesin 20 mg-200 mg/10 mL oral liquid: 10 mL, PO, Q6h, PRN: cough, Each, 0 Refill(s) gabapentin 600 mg oral tablet: 1 Tab, PO, BID, Each, 0 Refill(s) hyoscyamine 0.125 mg sublingual tablet: 1 Tab, Subl, QID, PRN: gi upset, Each, 0 Refill(s) isosorbide mononitrate 60 mg oral tablet, extended release: 1 Tab, PO, Daily, am, Each, 0 Refill(s) ketoconazole topical 2% cream: Apply, Topical, BID, Each, 0 Refill(s) midodrine 5 mg oral tablet: 1 Tab, PO, TID, Each, 0 Refill(s) multivitamin: 1 Tab, PO, Daily, with folic acid, Tab, 0 Refill(s) nitroglycerin 0.4 mg sublingual tablet: 1 Tab, Subl, Q5min, PRN: Chest Pain, Each, 0 Refill(s) promethazine 25 mg oral tablet: 1 Tab, PO, Q4h, PRN: nausea, Each, 0 Refill(s) sevelamer 800 mg oral tablet: 1 Tab, PO, w/meals TID, Each, 0 Refill(s) sucralfate 1 gm oral tablet: 1 Tab, PO, ac+bedtime, Each, 0 Refill(s) temazepam 30 mg oral capsule: 1 Cap, PO, Bedtime, Each, 0 Refill(s) traMADol 50 mg oral tablet: 1 Tab, PO, Q6h, PRN: Pain/Discomfort, Each, 0 Refill(s) venlafaxine 150 mg oral capsule, extended release: 1 Cap, PO, Daily, am, Each, 0 Refill(s) venlafaxine 75 mg oral capsule, extended release: 1 Cap, PO, Daily, am, Each, 0 Refill(s) Social History Tobacco Trying to quit-has had 1/2 cigarette in the past 3 weeks Social Habits History Social & Psychosocial Habits Alcohol 11/16/2020 Risk Assessment: Denies Alcohol Use Home/Environment 11/16/2020 Lives with: grandson Living situation: Home/Independent Current Sensory Status glasses, upper denture Home equipment: Walker/Cane, Wheelchair Nutrition/Health (Ambulatory) 11/16/2020 Home Diet: No restrictions Substance Abuse 11/16/2020 Risk Assessment: Denies Substance Abuse Family History Negative for CAD, DVT, DM or anesthesia complication Review of Systems Review of Systems Physical Examination Last Charted Vital Signs No vital signs charted Objective Intake & Output (Previous 24Hrs) I & O Summary Begin date: 01/02 05:05 End date: 01/03 05:05 24 Hour Intake: 0.00 Output: 0.00 Balance: 0.00 Last BM: No BM Charted Results Review 12/27/20 Sodium 138 K+ 4.8 Creat 1.0 Glucose 73 WBC 7.4 HGB 8.8 PLT 307 EKG 12/27/20 CXR 12/27/20 Right basilar atelectasis. Findings are improved overall compared to 11/29/20 Echo 09/29/2019-Global LV systolic function is normal. Borderline left ventricular hypertrophy. Mild left atrial dilation. The right ventricle is normal in size and systolic function. No significant valvular abnormalities. Renal U/S 12/07/20-3.9 cm left adrenal mass. Mild bilateral renal cortical atrophy with no acute abnormality. Post void urinary bladder volume 17 ml Labs - Last 36 hours (Max 2 / lab test) CHEMISTRY Sodium No result Potassium No result Chloride No result CO2 No result Glucose No result Glucose POCT No result BUN No result Creatinine No result Calcium Total No result Magnesium No result HEMATOLOGY WBC No result RBC No result Hb No result Hematocrit No result Platelets No result MCV No result MCH No result RDW No result MCHC No result Neutrophil Ab No result Monocyte Ab No result Eosinophil Ab No result Basophil Ab No result Lymphocyte Ab No result List of X-rays performed in last 36 hours No X-rays charted within the last 36 hours documented in this encounter [facility] 01-03-2021 Mycobacterium sp Org specific cx Ql (Unsp spec) FORMERLY NAMED [facility] Microbiology PROCEDURE: Culture AFB and Stain SOURCE: Tissue BODY SITE: COLLECTED DATE/TIME: 01/03/2021 12:48 EDT RECEIVED DATE/TIME: 01/03/2021 12:48 EDT START DATE/TIME: 01/03/2021 12:48 EDT FREE TEXT SOURCE: TISSUE-LT KNEE D INTERFACED REPORTS Final Report [] Verified Date/Time/Personnel: 03/02/2021 16:15 EST CONTRIBUTOR_SYSTEM, CO_PN NO ACID FAST BACILLI GROWN AFTER 8 WEEKS Preliminary Report [] Verified Date/Time/Personnel: 01/04/2021 12:40 EDT CONTRIBUTOR_SYSTEM, CO_PN CULTURE IN PROGRESS CULTURE WILL BE UPDATED IF AN ACID FAST BACILLI IS ISOLATED CULTURE WILL BE HELD FOR 6-8 WEEKS. Acid Fast Smear Report [] Verified Date/Time/Personnel: 01/04/2021 12:40 EDT CONTRIBUTOR_SYSTEM, CO_PN NO ACID FAST BACILLI SEEN [facility] Comment on above: Performed By: #### 5 0941-4 ####[address] 01-03-2021 Mycobacterium sp Org specific cx Ql (Unsp spec) FORMERLY NAMED [facility] Microbiology PROCEDURE: Culture AFB and Stain SOURCE: Tissue BODY SITE: COLLECTED DATE/TIME: 01/03/2021 12:47 EDT RECEIVED DATE/TIME: 01/03/2021 12:47 EDT START DATE/TIME: 01/03/2021 12:47 EDT FREE TEXT SOURCE: TISSUE-LT KNEE C INTERFACED REPORTS Final Report [] Verified Date/Time/Personnel: 03/02/2021 16:15 EST CONTRIBUTOR_SYSTEM, CO_PN NO ACID FAST BACILLI GROWN AFTER 8 WEEKS Preliminary Report [] Verified Date/Time/Personnel: 01/04/2021 12:40 EDT CONTRIBUTOR_SYSTEM, CO_PN CULTURE IN PROGRESS CULTURE WILL BE UPDATED IF AN ACID FAST BACILLI IS ISOLATED CULTURE WILL BE HELD FOR 6-8 WEEKS. Acid Fast Smear Report [] Verified Date/Time/Personnel: 01/04/2021 12:40 EDT CONTRIBUTOR_SYSTEM, CO_PN NO ACID FAST BACILLI SEEN [facility] Comment on above: Performed By: #### 5 [id number] ####[address] 01-03-2021 Mycobacterium sp Org specific cx Ql (Unsp spec) [facility] NAMED [facility] Microbiology PROCEDURE: Culture AFB and Stain SOURCE: Tissue BODY SITE: COLLECTED DATE/TIME: 01/03/2021 12:46 EDT RECEIVED DATE/TIME: 01/03/2021 12:46 EDT START DATE/TIME: 01/03/2021 12:46 EDT FREE TEXT SOURCE: TISSUE-LT KNEE B INTERFACED REPORTS Final Report [] Verified Date/Time/Personnel: 03/02/2021 16:15 EST CONTRIBUTOR_SYSTEM, CO_PN NO ACID FAST BACILLI GROWN AFTER 8 WEEKS Preliminary Report [] Verified Date/Time/Personnel: 01/04/2021 12:39 EDT CONTRIBUTOR_SYSTEM, CO_PN CULTURE IN PROGRESS CULTURE WILL BE UPDATED IF AN ACID FAST BACILLI IS ISOLATED CULTURE WILL BE HELD FOR 6-8 WEEKS. Acid Fast Smear Report [] Verified Date/Time/Personnel: 01/04/2021 12:39 EDT CONTRIBUTOR_SYSTEM, CO_PN NO ACID FAST BACILLI SEEN [facility] Comment on above: Performed By: #### 5 0941-4 ####[address] 01-03-2021 Mycobacterium sp Org specific cx Ql (Unsp spec) FOR[facility] NAMED [facility] Microbiology PROCEDURE: Culture AFB and Stain SOURCE: Tissue BODY SITE: COLLECTED DATE/TIME: 01/03/2021 12:45 EDT RECEIVED DATE/TIME: 01/03/2021 12:45 EDT START DATE/TIME: 01/03/2021 12:45 EDT FREE TEXT SOURCE: TISSUE-LT KNEE A INTERFACED REPORTS Final Report [] Verified Date/Time/Personnel: 03/02/2021 16:15 EST CONTRIBUTOR_SYSTEM, CO_PN NO ACID FAST BACILLI GROWN AFTER 8 WEEKS Preliminary Report [] Verified Date/Time/Personnel: 01/04/2021 12:39 EDT CONTRIBUTOR_SYSTEM, CO_PN CULTURE IN PROGRESS CULTURE WILL BE UPDATED IF AN ACID FAST BACILLI IS ISOLATED CULTURE WILL BE HELD FOR 6-8 WEEKS. Acid Fast Smear Report [] Verified Date/Time/Personnel: 01/04/2021 12:39 EDT CONTRIBUTOR_SYSTEM, CO_PN NO ACID FAST BACILLI SEEN [facility] Comment on above: Performed By: #### 5 0941-4 ####[address] 01-03-2021 Bacteria identified Sterile body fluid culture Nom (Unsp spec) FORMER[facility] NAMED [facility] Microbiology PROCEDURE: Culture Body Fluid + Susceptibility + Smear Direct SOURCE: Joint Fl BODY SITE: COLLECTED DATE/TIME: 01/03/2021 12:40 EDT RECEIVED DATE/TIME: 01/03/2021 12:40 EDT START DATE/TIME: 01/03/2021 12:40 EDT FREE TEXT SOURCE: JOINT FLUID-LT KNEE INTERFACED REPORTS Final Report [] Verified Date/Time/Personnel: 01/06/2021 10:57 EDT CONTRIBUTOR_SYSTEM, CO_PN NO GROWTH AFTER 72 HOURS Preliminary Report [] Verified Date/Time/Personnel: 01/05/2021 06:58 EDT CONTRIBUTOR_SYSTEM, CO_PN NO GROWTH AFTER 48 HOURS FINAL TO FOLLOW Preliminary Report [] Verified Date/Time/Personnel: 01/04/2021 07:17 EDT CONTRIBUTOR_SYSTEM, CO_PN NO GROWTH AT 12-24 HOURS Gram Stain [] Verified Date/Time/Personnel: 01/04/2021 03:12 EDT CONTRIBUTOR_SYSTEM, CO_PN RARE POLYS No Epithelials NO ORGANISMS SEEN [facility] Comment on above: Performed By: #### 6 [id number] ####[place] [id number] [place], [place] 01-03-2021 Mycobacterium sp Org specific cx Ql (Unsp spec) FORMERLY NAMED [facility] Microbiology PROCEDURE: Culture AFB and Stain SOURCE: Joint Fl BODY SITE: COLLECTED DATE/TIME: 01/03/2021 12:40 EDT RECEIVED DATE/TIME: 01/03/2021 12:40 EDT START DATE/TIME: 01/03/2021 12:40 EDT FREE TEXT SOURCE: JOINT FLUID-LT KNEE INTERFACED REPORTS Final Report [] Verified Date/Time/Personnel: 03/02/2021 16:15 EST CONTRIBUTOR_SYSTEM, CO_PN NO ACID FAST BACILLI GROWN AFTER 8 WEEKS Preliminary Report [] Verified Date/Time/Personnel: 01/04/2021 00:13 EDT CONTRIBUTOR_SYSTEM, CO_PN CULTURE IN PROGRESS CULTURE WILL BE UPDATED IF AN ACID FAST BACILLI IS ISOLATED CULTURE WILL BE HELD FOR 6-8 WEEKS. Acid Fast Smear Report [] Verified Date/Time/Personnel: 01/04/2021 00:11 EDT CONTRIBUTOR_SYSTEM, CO_PN NO ACID FAST BACILLI SEEN [facility] Comment on above: Performed By: #### 5 0941-4 ####[place] [id number] [place], [place] 01-03-2021 Anesthesiology Preoperative evaluation and management note Patient: TRINITY GODINEZ MRN: ([id number] Age: 65 years Sex: Female : 1955 Associated Diagnoses: None Author: Pramod Parry MD Preoperative Information Planned Procedure Left Knee Revision Histories Past Medical History: Active Anxiety CHF (congestive heart failure) COPD (chronic obstructive pulmonary disease) Depression Hypertension Osteoarthritis PE (pulmonary thromboembolism) - 2018 Peripherally inserted central catheter in place - R UE 4FR SL PICC Resolved COVID-05/2020 Anesthesia History: No previous anesthetic complications Medications Allergies NSAIDs: Severe, Anaphylactic reaction Ancef: Severe, Anaphylactic reaction morphine: Moderate, Itching vancomycin: Severe, Kidney Home Medications Acetaminophen-OxyCODONE (Percocet 5 mg/325 mg) 1 to 2 tablets By Mouth every 4 hours, As Needed Pain/Discomfort Al hydroxide/Mg hydroxide/simethicone (Maalox Plus 200 mg-200 mg-20 mg/5 ml oral suspension) 30 mL By Mouth Suspension every 4 hours, As Needed heartburn Dextromethorphan-GuaiFENesin (dextromethorphan-guaiFENesin 20 mg-200 mg/10 mL oral liquid) 10 mL By Mouth every 6 hours, As Needed cough Freetext Medication (Dr. Hicks's Orders:) See Instructions Dr. Hicks's Orders: 1)Picc Care2)Qmon CBC,SR, Creat,CRP, Vanco Trough, fax to Dr. Hicks [phone])IV ATB UNTIL reimplant4)Call Dr. Hicks for F/C/S, N/V/D, rash, [phone])F/U with Dr Hicks in 4-5 weeks COMMENTS: Call Dr. Hicks if released from your facility before IV therapy completed; Notify Dr. Hicks if Patient is admitted to the hospital. HydrALAZINE Intravenous every 4 hours, As Needed hypertension TraMADol (traMADol 50 mg oral tablet) 1 Tab = 50 mg By Mouth every 6 hours, As Needed Pain/Discomfort acetaminophen (Tylenol Arthritis Caplet 650 mg oral tablet) 1 Tab By Mouth every 4 hours, As Needed Pain/Discomfort aclidinium (Tudorza Pressair 400 mcg/inh inhalation powder) 1 Puff Inhalation once a day am albuterol (Ventolin HFA 90 mcg/Puff MDI) 2 Puff Inhalation every 6 hours, As Needed Shortness of Breath albuterol (albuterol 2.5 mg/3 mL (0.083%) inhalation solution) 3 mL = 2.5 mg Nebulized Medication Every 2 hours, As Needed Shortness of Breath diazePAM (Valium 2 mg oral tablet) 1 Tab = 2 mg By Mouth Twice a day, As Needed anxiety gabapentin (gabapentin 600 mg oral tablet) 1 Tab = 600 mg By Mouth Twice a day hyoscyamine (hyoscyamine 0.125 mg sublingual tablet) 1 Tab = 0.125 mg Under the Tongue 4 Times/Day, As Needed gi upset isosorbide mononitrate (isosorbide mononitrate 60 mg oral tablet, extended release) 1 Tab = 60 mg By Mouth once a day am ketoconazole topical (ketoconazole topical 2% cream) Apply Topical Twice a day metoprolol (Metoprolol Succinate ER 100 mg oral tablet, extended release) 1 Tab = 100 mg By Mouth once a day COMMENTS: Beta-B' midodrine (midodrine 5 mg oral tablet) 1 Tab = 5 mg By Mouth 3 Times a day multivitamin 1 Tab By Mouth once a day with folic acid nitroglycerin (nitroglycerin 0.4 mg sublingual tablet) 1 Tab = 0.4 mg Under the Tongue every 5 minutes, As Needed Chest Pain polyethylene glycol 3350 (MiraLax oral powder for reconstitution) 17 Gm By Mouth once a day, As Needed Constipation promethazine (promethazine 25 mg oral tablet) 1 Tab = 25 mg By Mouth every 4 hours, As Needed nausea sevelamer (sevelamer 800 mg oral tablet) 1 Tab = 800 mg By Mouth with Meals Three Times a Day sucralfate (sucralfate 1 gm oral tablet) 1 Tab = 1 Gm By Mouth before Meals and at Bedtime temazepam (temazepam 30 mg oral capsule) 1 Cap = 30 mg By Mouth Bedtime vancomycin (vancomycin 1 g/250 mL intravenous solution) 1 Gm Intravenous every 12 hours x 56 Day(s) venlafaxine (venlafaxine 75 mg oral capsule, extended release) 1 Cap = 75 mg By Mouth once a day am venlafaxine (venlafaxine 150 mg oral capsule, extended release) 1 Cap = 150 mg By Mouth once a day am warfarin (Coumadin 3 mg oral tablet) 1 Tab = 3 mg By Mouth once a day am COMMENTS: See compliance Physical Examination Mouth/Airway: Dental (from Forms) No dental information charted . Mallampati: Class 2. Respiratory: Right lung: Clear to auscultation. Left lung: Clear to auscultation. Cardiovascular: Rhythm: Regular. Results Review General results Laboratory Last 14 Days Chemistry 01/03/21 10:35, Glucose POCT = 82 mg/dL Hematology 01/03/21 10:05, Hb = 10.4 gm/dL L 01/03/21 10:05, Hematocrit = 31.6 % L Coagulation 01/03/21 10:05, Partial Thromboplastin (aPTT) = 25.0 Sec 01/03/21 10:05, INR = 1.1 01/03/21 10:05, Prothrombintime (PT) = 13.7 Sec Other Labs 01/03/21 10:05, Rh Type = A POSITIVE 01/03/21 10:05, Antibody Screen = NEGATIVE Diagnostic Tests Electrocardiogram Normal sinus rhythm Assessment ASA Classification 3. Plan Anesthesia Discussion The patient was interviewed:: Yes. The p (more content not included)... [facility] 01-03-2021 Hospital Progress note Patient: TRINITY GODINEZ MRN: [id number] Age: 65 years Sex: Female : 1955 Associated Diagnoses: None Author: Pramod Parry MD Comments [] Patient/surgeon request nerve block for post-op analgesia [] Risks/benefits discussed, consent obtained prior to the start of the procedure. Procedure: [Left IPACK block Location performed: [] Preoperative Holding Area Patient position: [] Supine [] TIME OUT was completed prior to the start of the procedure: [] Correct patient [] Correct procedure [] Correct site [] Oxygen liters/minute by: [] nasal cannula [] face mask [] Other: [] The site was prepped in the usual sterile fashion. The skin and subcutaneous tissues were infiltrated with __1___% lidocaine. There were no signs of intraneural needle placement or intraneural injection. Local anesthetic was injected incrementally with frequent aspirations to look for the presence of blood or signs of intravenous injection as follows: Needle(s): [] Short-bevel Needle gauge #_20___ Ultrasound (US) guided [] The needle was advanced under US guidance to proximity of the nerve(s) [] Spread of Local Anesthesia visualized on US [] Other comments ____ Local anesthetic/agents injected []__10 ml 0.25% ropivacaine [] Procedure complete: there were no signs or symptoms of intravascular, intraneural local anesthetic injection throughout the procedure. [facility] 01-03-2021 Hospital Progress note Patient: TRINITY GODINEZ MRN: [id number] Age: 65 years Sex: Female : 1955 Associated Diagnoses: None Author: Pramod Parry MD Comments [] Patient/surgeon request nerve block for post-op analgesia [] Risks/benefits discussed, consent obtained prior to the start of the procedure. Procedure: [] Left Adductor Canal Block Location performed: [] Preoperative Holding Area Patient position: [] Supine [] TIME OUT was completed prior to the start of the procedure: [] Correct patient [] Correct procedure [] Correct site [] Oxygen liters/minute by: [] nasal cannula [] face mask [] Sedation was initiated as follows: [] Midazolam mg IV [] Other: [] The site was prepped in the usual sterile fashion. The skin and subcutaneous tissues were infiltrated with __1___% lidocaine. There were no signs of intraneural needle placement or intraneural injection. Local anesthetic was injected incrementally with frequent aspirations to look for the presence of blood or signs of intravenous injection as follows: Needle(s): [] Short-bevel Needle gauge #_20___ Ultrasound (US) guided [] The needle was advanced under US guidance to proximity of the nerve(s) [] Spread of Local Anesthesia visualized on US [] Other comments ____ Local anesthetic/agents injected []_25___ ml 0.5% ropivacaine [] Procedure complete: there were no signs or symptoms of intravascular, intraneural local anesthetic injection throughout the procedure. 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 PROCEDURE: Left total knee revision and reimplantation utilizing the Link prosthesis. We used a medium rotating hinged Link. We used an 18.5 cement restrictor on the tibia and a 25 mm cement restrictor on the femur. We used a [place] size D tibial cone. Fixation is Biomet bone cement mixed with 1 g vancomycin. This is the gentamicin laden Biomet cement mixed with 1 g vancomycin. SURGEON: Calos Smith MD MEDICAL TECHNICAL WRITER: MD Staish Cheng MD assisted with proper preoperative positioning, preoperative templating, determining availability of proper implants, prepping and draping of patient, manipulation placement of instruments, protection of ligaments and vital soft tissue structures, assistance in maintaining hemostasis, and assistance with closure of the wound. His skills and knowledge of the steps of the operation and the desired outcome of each surgical step was crucial, allowing for efficient choreography of surgical procedure, and closure of the wound which lead to reduced surgical time, less blood loss, and less risk of complications for the patient. ANESTHESIA: General with adductor canal and iPACK block. ESTIMATED BLOOD LOSS: 75 mL. FLUIDS: 2004 mL. TOURNIQUET TIME: 61 minutes. Intraoperative white blood cell count is 4700. Postop roentgenographs showed satisfactory position and alignment of components. HISTORY AND REPORT: The patient is a 65-year-old female who presents to us with long history involving her left knee. She had undergone primary knee subsequent infection requiring a debridement and then ultimately a gastroc flap. So at this point, we had proceeded to perform an incision, drainage, debridement, removal of the implant, placement of the prosthesis of antibiotic laden acrylic cement. She was treated with IV antibiotics and she now presents for revision and reimplantation. Her inflammatory markers were trending downward and it was felt that this was the most prudent time. So she was cleared by General Medical consultants, admitted to [facility]. At this point, she was seen by the Anesthesia Department, seen by myself. I signed the consent, marked the extremity, discussed the procedure. Adductor canal and iPACK block placed in preop holding area. DESCRIPTION OF PROCEDURE: The patient was taken back to the OR. After suitable and adequate induction of general anesthesia, she was positioned supine. We prepped and draped then the left knee and left lower extremity using a standard prep, centered the patient in the operating room. We now approached the left knee from the midline incision utilizing our previous incision and elevating the gastroc flap medially. We then performed a medial parapatellar arthrotomy which allowed us to expose the knee. We had previously exposed with a femoral peel approach and we did the same today. This allowed us then to get exposure of the distal femur, proximal tibia and remove the prosthesis of antibiotic laden acrylic cement, curetted and debrided the femoral and tibial canals, and then sized the construct to the medium Link. So, we reresected the tibia 90 degrees to the axis and at this point, we broached the femoral and tibial canals. We sized up for the medium Link, we seated the medium component on the tibia. We took our reamers from [employer] and created the cone for this enhanced fixation of the tibia. We sized the centralizer to the 14. For the femur, we sized the medium. We created intercondylar resection 90 degrees in line with the transepicondylar axis and perpendicular to the wide size line. So we sized that to a 16 mm centralizer and we placed the medium components and articulated the components and they were stable. So, now we removed these components, we plugged the tibial canal with an 18.5, the femur with a 25. We had the centralizer, 16 for the femur and 14 for the tibia, which we assembled. We mixed the Biomet bone cement with gentamicin with 1 g vancomycin and we pressurized into the tibia and the femur, cementing these [address], removing all the extraneous cement. We then articulated the components and placed the antiluxation polyethylene. At this point, we performed a rather extensive lateral retinacular release to facilitate tracking of the patella and so we did a proximal realignment of the extensor mechanism reefing the vastus medialis obliques laterally and distally. We approximated the whole extensor mechanism with interrupted Vicryl sutures and we did close this over a #10-Polish drain. We closed the subcutaneous tissues with 2-0 Vicryl and the skin with elvira. Applied a very bulky dressing and took the patient to the Post-Anesthesia Care Unit in satisfactory condition. Roentgenographs showed satisfactory position and alignment of components. TRINITY GODINEZ Birthdate: 1955 D/01/03/2021 16:37:19 T/01/03/2021 20:53:46 VOICE JOB ID: [id number] Ramy Santos thanks you for the opportunity to care for your patient. DID: [id number] documented in this encounter [facility] 11-23-2020 Surgery Surgical operation note DICTATED BY: CALOS SMITH MD SERVICE DATE: 11/19/2020 PREOPERATIVE DIAGNOSIS: Periprosthetic infection of the left knee status post incision, drainage, debridement, placement of a static spacer with medial gastroc flap and skin graft. POSTOPERATIVE DIAGNOSIS: Periprosthetic infection of the left knee status post incision, drainage, debridement, placement of a static spacer with medial gastroc flap and skin graft. PROCEDURE: Repeat incision, drainage, debridement with removal of the static spacer and placement of a mobile spacer. Mobile spacer graded with polymethylmethacrylate each unit mixed with 2 g of vancomycin and 2.4 g of tobramycin. We used 1 unit of cement to create the IM dowels for the femur and tibia and to create a tibial component, which is a 63 [employer] polyethylene wrapped in the high-dose antibiotic cement. We then used [address] in [address] the AGC femur, which is a 65 left femur and the dowels and the tibial component. SURGEON: Calos Smith MD ASSISTANTS: 1. Kd Bustamante PA-C 2. MD Kd Bain PA-C and Jason Nunez MD assisted with proper preoperative positioning, preoperative templating, determining availability of proper implants, prepping and draping of patient, manipulation placement of instruments, protection of ligaments and vital soft tissue structures, assistance in maintaining hemostasis, and assistance with closure of the wound. Their skills and knowledge of the steps of the operation and the desired outcome of each surgical step was crucial, allowing for efficient choreography of surgical procedure, and closure of the wound which lead to reduced surgical time, less blood loss, and less risk of complications for the patient. ANESTHESIA: General with an adductor canal and iPACK block. ESTIMATED BLOOD LOSS: 75 mL FLUIDS: 2200 mL Postoperative roentgenographs showed satisfactory position and alignment of components. HISTORY AND OPERATIVE REPORT: The patient is 65-year-old female who presents to our practice with a long history involving her left knee. Unfortunately, her primary left knee subsequently developed an infectious process and underwent incision, drainage, debridement, several procedures, ultimately the removal of the implant and placement of a static spacer with an IM cecilia. At that time, she required a medial gastroc flap and a skin graft for closure. She has healed this wound nicely and she presents to us with concerns over the ongoing pain she has and the inability for any significant range of motion. She has been advised by her treating physician that she should remain in this capacity with a stiff knee. However, it is her desire to have a mobile knee and we discussed the pros and cons of surgical intervention. I suggest that if we are going to seek mobility, there is an extensive amount of scarring which has to be released. We have to remove the static spacer, put an articulating spacer, then ultimately reimplant with a hinged knee device. She wishes to undergo this procedure. Medical clearance is obtained. Evaluation for infection is performed. There appears there is not an active infectious process based on inflammatory markers. No fluid is obtained on attempted aspiration. So we discussed therefore of proceeding. She wishes to proceed and she is admitted to [facility], evaluated by the anesthesiologist, adductor canal block placed and an i-PACK block placed. I evaluated the patient, signed the consent, marked the extremity, and reviewed the procedure. At this point, the patient is then taken to the OR and after suitable and adequate induction of general anesthesia, she is positioned supine. We now prep and drape the left knee and left lower extremity using a standard prep. We center the patient in the operating room. We proceed to identify the patient with a formal timeout. We identify the patient, left lower extremity, left knee, left implants in situ, and the implants to create the prosthesis with antibiotic-laden acrylic cement. We identify the patient's BUN and creatinine. We elect to use 2 g of vancomycin and 2.4 g of tobramycin per unit. We elect to use 4 units of cement. So all of this is prepared. At this point, we then elevate the tourniquet and we proceed with a midline incision. Now, we have this gastroc flap, so I cut along the most lateral border of the gastroc flap and elevate it up over the patellar tendon. I then carry the dissection all the way around medially of the proximal medial tibia. In order to gain exposure, we utilize the femoral peel approach elevating all of the scar tissue off the distal femur. Once we have accomplished this, we are now able to remove the polymethylmethacrylate between the femur and tibia, then take a high speed bur and cut the cecilia. Once cut, we now are able then to further mobilize the distal femur and obtain full exposure with the femoral peel approach. We remove the cecilia and cement and we remove all the cement from t (more content not included)... [facility] 11-22-2020 Hospital Progress note Patient: TRINITY GODINEZ MRN: ([id number] [facility]: [id number] Age: 65 years Sex: Female : 1955 Associated Diagnoses: None Author: Shailesh VEGA , Grabiel Maciel Assessment 1. Knee: Status post re-radical debridement. Intraoperative cultures presently pending. 2. History of infection: cultures from last January without growth. 3. Disposition: discharge today okay with me. Medications reconciled. Discussed with patient and case management. Grabiel Hicks MD Infectious Diseases Subjective comfortable today. Objective Vital Signs (Past 36 Hours) Temp LC: (Temporal Artery) 96.7 (11/22 08:51) Min:(Temporal Artery) 96.7 (11/22 08:51) Max:(Temporal Artery) 98.8 (11/21 08:32) Pulse (11/22 09:37) Min: 77 (11/22 05:19) Max: 85 (11/21 18:08) Resp (11/22 08:51) Min: 14 (11/21 18:08) Max: 20 (11/22 08:51) Pulse Ox % (11/22 10:43) Min: 87 % (11/22 08:54) Max: 100 % (11/22 05:19) Pain Score (11/22 12:30) Min: 4 (11/21 18:00) Max: 9 (11/22 09:45) BP Last Charted: 100/66 (11/22 09:37) Systolic Min: 95/61 (11/21 19:33) Systolic Max: 114/82 (11/21 18:08) Diastolic Min: 95/61 (11/21 19:33) Diastolic Max: 114/82 (11/21 18:08) EXAMINATION: GENERAL: Comfortable, in no distress HEENT: symmetric, OP moist, no lesions NECK: Supple LUNGS: Breathing is unlabored, clear HEART: regular ABDOMEN: soft, non tender, BS normal EXTREMITY: minimal edema MENTAL STATUS: comfortable SKIN: No lesions noted WOUNDS: LINES: uncomplicated I have evaluated for the presence of nausea, vomiting, diarrhea, or rash, or IV site issues by personally discussing these with the patient. If the patient is unable, I have reviewed these with either the nurse or the electronic medical record. Pertinent findings can be found in impression and plan. Last Charted Vital Signs Temperature: 96.7 (11/22 08:51) Pulse: 82 (11/22 09:37) Respiration: 20 (11/22 08:51) BP: 100/66 (11/22 09:37) Pulse Ox: 93 (11/22 10:43) Oxygen Delivery: Room air (11/22 14:55) Pain Score: 7 (11/22 12:30) Results Review Labs - Last 36 hours (Max 2 / lab test) CHEMISTRY Sodium 138 (11/22 04:50) Potassium 4.4 (11/22 04:50) Chloride 103 (11/22 04:50) CO2 29 (11/22 04:50) Glucose 93 (11/22 04:50) Glucose POCT No result BUN 18 (11/22 04:50) Creatinine 1.09 (11/22 04:50) Calcium Total 8.0 (11/22 04:50) Magnesium No result HEMATOLOGY WBC 6.5 (11/22 04:50) RBC 2.74 (11/22 04:50) Hb 8.2 (11/22 04:50) Hematocrit 24.8 (11/22 04:50) Platelets 176 (11/22 04:50) MCV 90.7 (11/22 04:50) MCH 29.9 (11/22 04:50) RDW 14.3 (11/22 04:50) MCHC 33.0 (11/22 04:50) Neutrophil Ab 4.2 (11/22 04:50) Monocyte Ab 0.8 (11/22 04:50) Eosinophil Ab 0.2 (11/22 04:50) Basophil Ab 0.0 (11/22 04:50) Lymphocyte Ab 1.1 (11/22 04:50) COAGULATION INR 1.4 (11/22 04:50) 1.4 (11/21 04:30) Prothrombintime (PT) 16.9 Sec (11/22 04:50) 17.1 Sec (11/22 03:30) OTHER LABS Est CrCl IBW (mL/min)-RX 53.29 mL/min (11/22 04:50) 54.29 mL/min (11/22 03:30) Est CrCl AdjBW (mL/min)-R 65.00 mL/min (11/22 04:50) 66.21 mL/min (11/22 03:30) BUN / Creatinine Ratio 17 (11/22 04:50) 17 (11/22 03:30) Vancomycin Random 28.3 ug/ml (11/22 12:59) SARS-CoV-2 NOT DETECTED (11/22 13:) First test N (11/22 13:) 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 N (11/22 13:) Symptomatic as defined by N (11/22) Date of onset NA (11/22 13:) Hospitalized Y (11/22 13:) ICU N (11/22 13:) Resides in congregate car N (11/22 13:) N (11/22 13:) Device Identifier ID NOW [email or web address]-[employer] EUA (11/22 13:) MPV 10.2 FL (11/22 04:50) 9.9 FL (11/22 03:30) Diff Method AUTOMATED DIFFERENTIAL (11/23 03:50) AUTOMATED DIFFERENTIAL (11/22 03:30) Neutrophil Percent 65.3 % (11/22 04:50) 66.9 % (11/21 04:30) Lymphocyte Percent 17.5 % (11/22 04:50) 18.7 % (11/22 03:30) Monocyte Percent 13.0 % (11/22 04:50) 12.1 % (11/21 04:30) Eosinophil Percent 3.5 % (11/22 04:50) 1.6 % (11/21 04:30) Basophil Percent 0.7 % (11/22 04:50) 0.7 % (11/21 04:30) List of X-rays performed in last 36 hours No X-rays charted within the last 36 hours I have reviewed the available microbiologic data available at the time of my evaluation. I have reviewed the current antimicrobial regimen for appropriateness. I have discussed this information with the pharmacy or with the microbiology laboratory as necessary. I have reviewed the available radiographic data. Pertinent findings may be mentioned in the impression and plan. Health Status Allergies Allergic Reactions (Selected) Sever (more content not included)... [facility] 11-22-2020 Hospital Progress note Patient: TRINITY GODINEZ MRN: [id number] Age: 65 years Sex: Female : 1955 Associated Diagnoses: None Author: Trey Martin MD Assessment Assessment Diagnosis: Osteoarthritis of left knee (KCN27-PS M17.9, 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 Plan A medical consult has been ordered by the surgeon/surgical team for perioperative management of the patient's chronic medical conditions. These chronic medical conditions have been reviewed and are summarized below with an impression/plan. Postoperative medical management. I have ordered pain medicines including IV opiates, home prescription medications have been reviewed and appropriate medicines have been ordered for use post procedure while hospitalized. s/p left knee radical debridement surgery. Multimodal pain medications have been ordered. This would include, but not limited to, IV narcotics, oral narcotics, and non-narcotics. DVT prophylaxis - as directed by the primary surgical team. Recommend prophylaxis as per current ACCP consensus guidelines. Encourage lower extremity venous return exercises. Acute Blood Loss Anemia - consistent with acute blood loss from surgery after review of current hemoglobin, preoperative hemoglobin, and surgical EBL. Patient currently without indications for transfusion. The patient will require ongoing management while hospitalized. This includes lab monitoring, IV fluids, and pulse oximetry with supplemental oxygen for any room air oxygen saturation less than 90%. COPD (J44.9) - chronic condition present on admission, currently without acute exacerbation. Med nebs with albuterol/Atrovent have been ordered when necessary. Chronic home prescription pulmonary medications have been reordered. Weaning off oxygen as soon as clinically able. Hypertension (I10) - chronic condition present on admission, reasonable postoperative control. Patient's home prescription antihypertensive medicines have been ordered. Blood pressure reviewed and normotensive this morning. Gastroesophageal Reflux Disease (K21.9) - No complaints of reflux today. Disposition - medically stable to discharge if passing flatus, room air sats greater than 90%, voiding without difficulty, acceptable with surgical service, has met the required physical therapy goals. I have reconciled the patient's home medications. The patient's DVT prophylaxis (pharmacologic and nonpharmacologic), NSAIDs, antibiotics, and pain medications/narcotics have been left to the discretion of the surgical service. If the patient is an outpatient/extended recovery status, it is acceptable to discharge home once PACU-Phase 2 criteria have been met. Full Labs WBC Count: 6.5 thou/mcL (11/22/20 04:50:00) Hemoglobin: 8.2 gm/dL Low (11/22/20 04:50:00) Platelet Count: 176 thou/mcL (11/22/20 04:50:00) BUN: 18 mg/dL (11/22/20 04:50:00) Carbon Dioxide Level: 29 mMol/L (11/22/20 04:50:00) Creatinine: 1.09 mg/dL High (11/22/20 04:50:00) Glucose Level: 93 mg/dL (11/22/20 04:50:00) Chloride Level: 103 mMol/L (11/22/20 04:50:00) Potassium Level: 4.4 mMol/L (11/22/20 04:50:00) Sodium Level: 138 mMol/L (11/22/20 04:50:00) Supervising Physician Comments Chief Complaint Postoperative Medical Care Postoperative Information Postoperative Follow Up Postoperative Follow Up. Day 3 Health Status Allergies Allergic Reactions (Selected) Severe Ancef- Anaphylactic reaction. NSAIDs- Anaphylactic reaction. Mild Morphine- Hives and itching. Subjective Patient seen on the floor in the room. Resting without any visible distress. Pain is being controlled with ordered medication. Johnson catheter absent. ROS: Constitutional: denies fever. Head/Neck: denies headache. Ear/Nose/Mouth/Throat: denies sore throat. Cardiovascular: denies chest pain. Respiratory: denies dyspnea. Gastrointestinal: denies abdominal pain; positive flatus. Genitourinary: denies incomplete emptying Objective Last Charted Vital Signs Temperature: 96.7 (11/22 08:51) Pulse: 82 (11/22 09:37) Respiration: 20 (11/22 08:51) BP: 100/66 (11/22 09:37) Pulse Ox: 93 (11/22 10:43) Oxygen Delivery: Room air (11/22 14:55) Pain Score: 7 (11/22 12:30) EXAM: Constitutional - conversant, more alert, vitals reviewed and listed above Eyes - pupils equal, conjunctiva remain clear Cardiovascular - regular rate and rhythm, No murmurs, gallops, or rubs, no peripheral edema Respiratory - CTA on inspiration and exhalation, normal respiratory effort GI - soft abdomen, nontender, nondistended, unable to palpate spleen Neuro - Cranial nerves intact, no sensory deficits noted Psych - A and Ox3, pleasant mood with an appropriate affect Intake and Output (Previous 24Hrs) I and O Summary Begin date: 11/21 17:48 End date: 11/22 17:48 24 Hour Intake: 358.33 Output: 3450.00 Balance: -3091.67 Last BM: 11/22/20 04:00 Results Review Labs - Last 36 hours (Max 2 / l (more content not included)... [facility] 11-22-2020 Note ID NOW COVID-19_[facility] [facility] 11-22-2020 Physician Hospital Discharge summary CLINICAL SUMMARY Please take this summary document to your follow up appointments. [facility] 11/22/20 14:48 [id number] [facility], [place]. [address] PATIENT INFORMATION Name: TRINITY GODINEZ Address: [address] [place] [id number] Age: 65 Years Phone: [phone] : 1955 12:00 MRN: [id number] Sex: Female Race: White Ethnicity: Not Hispan/Lat Admitted From: Clinic or [facility] Medical Service: Orthopedic Surgery Nurse Unit/Bed: ([place]) [facility] 0221-01 Admit Date: 11/19/2020 09:38 PCP: Levi Shine MD PHYSICIANS INVOLVED WITH CARE Attending Physicians: Ming Quinn MD , Calos - Orthopaedic Surg Admitting Physician: Ming Quinn MD , Calos - Orthopaedic Surg Primary Care Physician:Levi Shine MD,[facility], - Consults: Shailesh VEGA , Grabiel Maciel - Infectious Disease Andrew VEGA , Jose Carrasco - Internal Medicine Mario VEGA , Trey E - [facility] - Internal Medicine Angeles VEGA , [place] Carrillo - Internal Medicine Problems Active Peripherally inserted central catheter in place (11/20/2020) Depression Anxiety Hypertension Osteoarthritis PE (pulmonary thromboembolism) CHF (congestive heart failure) COPD (chronic obstructive pulmonary disease) Allergies NSAIDs (Anaphylactic reaction) Ancef (Anaphylactic reaction) morphine (Hives) (Itching) Procedures Debridement (11/19/2020) MEASUREMENTS: Last Charted: Weight: 99.00 kg /218 lbs 4 oz ( 11/19/20 10:55:00 ) VITAL SIGNS: Last Charted: Pulse Rate: 82 BPM (11/22 09:37) Blood Pressure: 100/66 mm Hg (11/22 09:37) Pain Score: 8(11/22 11:01) Last Bowel Movement: Date/Time: 11/22 04:00 Stool Count: 1 MENTAL STATUS: Level of Conciousness: Alert (11/22 06:27) Orientation: Oriented x 4 (11/22 06:27) MEDICATIONS ORDERED / RECOMMENDED TO BE CONTINUED for: TRINITY GODINEZ aclidinium (Tudorza Pressair 400 mcg/inh inhalation powder) 1 Puff(s) Inhalation once a day. am. albuterol (Ventolin HFA 90 mcg/Puff MDI) 2 Puff(s) Inhalation every 6 hours as needed Shortness of Breath. ascorbic acid (Vitamin C 1000 mg oral tablet) 1 Tab(s) By Mouth once a day. am. NOTES TO PATIENT: resume after follow up with surgeon diazePAM (diazePAM 2 mg oral tablet) 1 Tab(s) By Mouth Twice a day. Freetext Medication (Dr. Hicks's Orders:) 1)Picc Care 2)Qmon CBC,SR,Creat,CRP, Vanco Trough, fax to Dr. Hicks [phone] 3)IV ATB UNTIL reimplant 4)Call Dr. Hicks for F/C/S, N/V/D, rash, 5)F/U with Dr Hicks in 4-5 weeks. Refills: 0., Call Dr. Hicks if released from your facility before IV therapy completed; Notify Dr. Hicks if Patient is admitted to the hospital. Freetext Medication (NEW PRESCRIPTIONS) NEW PRESCRIPTIONS TRAMADOL OXYCODONE. gabapentin (gabapentin 300 mg oral capsule) 2 Capsule By Mouth Twice a day. hydroCHLOROthiazide (hydroCHLOROthiazide 25 mg oral tablet) 1 Tab(s) By Mouth once a day. am. hyoscyamine (hyoscyamine 0.125 mg sublingual tablet) 1 Tab(s) Under the Tongue 4 Times/Day as needed gi upset. isosorbide mononitrate (isosorbide mononitrate 60 mg oral tablet, extended release) 1 Tab(s) By Mouth once a day. am. metoprolol (Metoprolol Succinate ER 100 mg oral tablet, extended release) 1 Tab(s) By Mouth once a day. am., Beta-B' pantoprazole (pantoprazole 40 mg oral enteric coated tablet) 1 Tab(s) By Mouth once a day. am. potassium chloride (Klor-Con M10 10 mEq oral tablet, extended release) 1 Tab(s) By Mouth Twice a day. promethazine (promethazine 25 mg oral tablet) 1 Tab(s) By Mouth as needed nausea. every 4 to 6 hours. sucralfate (sucralfate 1 gm oral tablet) 1 Tab(s) By Mouth before Meals and at Bedtime. temazepam (temazepam 30 mg oral capsule) 1 Capsule By Mouth Bedtime as needed Insomnia/Sleep. TiZANidine (tiZANidine 4 mg oral tablet) 1 Tab(s) By Mouth Twice a day. vancomycin (vancomycin 1 g/250 mL intravenous solution) 1 gram Intravenous every 12 hours for 56 Days. Refills: 0. venlafaxine (venlafaxine 150 mg oral capsule, extended release) 1 Capsule By Mouth once a day. am. venlafaxine (venlafaxine 75 mg oral capsule, extended release) 1 Capsule By Mouth once a day. am. warfarin (Coumadin 3 mg oral tablet) 1 Tab(s) By Mouth once a day. am., See compliance NOTES TO PATIENT: resume when ok with surgeon MEDICATION CHANGE DETAILS NEW MEDICATIONS Other Medications Freetext Medication (Dr. Hicks's Orders:) 1)Picc Care 2)Qmon CBC,SR,Creat,CRP, Vanco Trough, fax to Dr. Hicks [phone] 3)IV ATB UNTIL reimplant 4)Call Dr. Hicks for F/C/S, N/V/D, rash, 5)F/U with Dr Hicks in 4-5 weeks. Refills: 0., Call Dr. Hicks if released from your facility before IV therapy completed; Notify Dr. Hicks if Patient is admitted to the hospital. Comment Freetext M (more content not included)... [facility] 11-21-2020 Hospital Progress note Patient: TRINITY GODINEZ MRN: ([id number] Age: 65 years Sex: Female : 1955 Associated Diagnoses: None Author: Shailesh VEGA , Grabiel Bhatia 1. Knee: Status post re-radical debridement. Intraoperative cultures presently pending. 2. History of infection: Trying to obtain culture reports from her Hospital in [place] from last January. 3. Disposition: Anticipate discharge with a course of IV therapy. PICC line inserted. Anticipate placement as soon as tomorrow the next day. Grabiel Hicks MD Infectious Diseases Supervising Physician Comments Documentation By: Consulting Physician. Subjective comfortable today. Objective Vital Signs (Past 36 Hours) Temp LC: (Temporal Artery) 98.8 (11/21 08:32) Min:(Temporal Artery) 97.4 (11/20 19:20) Max:(Temporal Artery) 99.8 (11/20 12:57) Pulse (11/21 08:32) Min: 73 (11/20 07:02) Max: 128 (11/21 04:10) Resp (11/21 08:32) Min: 14 (11/21 08:32) Max: 16 (11/21 04:10) Pulse Ox % (11/21 09:30) Min: 88 % (11/20 22:25) Max: 96 % (11/21 08:32) Pain Score (11/21 13:50) Min: 4 (11/21 00:15) Max: 9 (11/20 14:37) BP Last Charted: 114/71 (11/21 08:32) Systolic Min: 99/63 (11/20 12:57) Systolic Max: 121/72 (11/20 19:20) Diastolic Min: 113/0 (11/20 07:21) Diastolic Max: 121/72 (11/20 19:20) EXAMINATION: GENERAL: Comfortable, in no distress HEENT: symmetric, OP moist, no lesions NECK: Supple LUNGS: Breathing is unlabored, clear HEART: regular ABDOMEN: soft, non tender, BS normal EXTREMITY: minimal edema MENTAL STATUS: comfortable SKIN: No lesions noted WOUNDS: LINES: uncomplicated I have evaluated for the presence of nausea, vomiting, diarrhea, or rash, or IV site issues by personally discussing these with the patient. If the patient is unable, I have reviewed these with either the nurse or the electronic medical record. Pertinent findings can be found in impression and plan. Last Charted Vital Signs Temperature: 98.8 (11/21 08:32) Pulse: 84 (11/21 08:32) Respiration: 14 (11/21 08:32) BP: 114/71 (11/21 08:32) Pulse Ox: 91 (11/21 09:30) Oxygen Delivery: Room air (11/21 11:45) Pain Score: 6 (11/21 13:50) Results Review Labs - Last 36 hours (Max 2 / lab test) CHEMISTRY Sodium 141 (11/21 04:30) Potassium 4.3 (11/21 04:30) Chloride 106 (11/21 04:30) CO2 29 (11/21 04:30) Glucose 94 (11/21 04:30) Glucose POCT No result BUN 18 (11/21 04:30) Creatinine 1.07 (11/21 04:30) Calcium Total 8.2 (11/21 04:30) Magnesium No result HEMATOLOGY WBC 7.0 (11/21 04:30) RBC 2.85 (11/21 04:30) Hb 8.5 (11/21 04:30) Hematocrit 25.9 (11/21 04:30) Platelets 181 (11/21 04:30) MCV 90.9 (11/21 04:30) MCH 29.8 (11/21 04:30) RDW 14.6 (11/21 04:30) MCHC 32.8 (11/21 04:30) Neutrophil Ab 4.6 (11/21 04:30) Monocyte Ab 0.8 (11/21 04:30) Eosinophil Ab 0.1 (11/21 04:30) Basophil Ab 0.0 (11/21 04:30) Lymphocyte Ab 1.3 (11/21 04:30) COAGULATION INR 1.4 (11/21 04:30) 1.0 (11/20 04:20) Prothrombintime (PT) 17.1 Sec (11/22 03:30) 13.6 Sec (11/21 03:20) OTHER LABS Est CrCl IBW (mL/min)-RX 54.29 mL/min (11/22 03:30) 59.88 mL/min (11/21 03:20) Est CrCl AdjBW (mL/min)-R 66.21 mL/min (11/22 03:30) 73.04 mL/min (11/20 04:20) BUN / Creatinine Ratio 17 (11/22 03:30) 19 (11/21 03:20) MPV 9.9 FL (11/22 03:30) 11.1 FL (11/21 03:20) Diff Method AUTOMATED DIFFERENTIAL (11/22 03:30) AUTOMATED DIFFERENTIAL (11/21 03:20) Neutrophil Percent 66.9 % (11/22 03:30) 81.5 % (11/20 04:20) Lymphocyte Percent 18.7 % (11/22 03:30) 9.1 % (11/21 03:20) Monocyte Percent 12.1 % (11/22 03:30) 9.2 % (11/21 03:20) Eosinophil Percent 1.6 % (11/22 03:30) 0.0 % (11/21 03:20) Basophil Percent 0.7 % (11/22 03:30) 0.2 % (11/21 03:20) List of X-rays performed in last 36 hours IR Consult: 11/20/20 10:36:23 See Radiology Report for More Detail I have reviewed the available microbiologic data available at the time of my evaluation. I have reviewed the current antimicrobial regimen for appropriateness. I have discussed this information with the pharmacy or with the microbiology laboratory as necessary. I have reviewed the available radiographic data. Pertinent findings may be mentioned in the impression and plan. Health Status Allergies Allergic Reactions (Selected) Severe Ancef- Anaphylactic reaction. NSAIDs- Anaphylactic reaction. Mild Morphine- Hives and itching. Medication List (Selected) Inpatient Medications Ordered Albuterol Inh Christine: 2.5 mg, Nebul, Q1h, PRN: Shortness of Breath Benadryl: 25 mg, PO, Q4h, PRN: Itching/Pruri (more content not included)... [facility] 11-21-2020 Hospital Progress note Patient: TRINITY GODINEZ MRN: [id number] Age: 65 years Sex: Female : 1955 Associated Diagnoses: None Author: Andrew VEGA , Jose Carrasco Supervising Physician Comments Documentation By: Consulting Physician. Assessment Assessment Diagnosis: Osteoarthritis (WLW64-DF M19.90, 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 Smith on 11/19/2020: - The ID service has been consulted for infection and antibiotic management. DVT px: increased risk of postop recurrence, defer choice and timing of any pharmacologic dvt px to surgeon per current ACCP guidelines and recommend aggressive nonpharmacologic modalities -She will be at risk for recurrent thromboembolism while off her Coumadin. Bridge Lovenox should be utilized concurrently with resumption of Coumadin and be maintained until INR is again between 2 and 3 - Chart reviewed on rounds 11/20. Coumadin restarted by the primary surgical service but per Case Management notes, no bridging anticoagulation is to be used. Thrombophilia: hx of PE, increased risk manage anticoagulation as detailed above - As noted above, Coumadin restarted but no bridging anticoagulation to be ordered. Suspected LUPE by screening: Increased risk for pulmonary complications necessitate close cardiopulmonary monitoring including telemetry and continuous pulse oximetry -cont aggressive pulmonary toilet and is q1h w/a -wean o2 as able - Denied respiratory symptoms on rounds 11/21. Continue to monitor on the DEXTER LUPE protocol. Obesity: BMI 33. follow per lupe/obesity postop protocol as noted above HTN: elevated today d/t pain and held meds from DOS, should improve with resumption of home meds, prns remain available for persistent elevations - Acceptable postoperative control, last reading noted at 114/71 on 11/21. Continue home prescription antihypertensive medicines and as needed clonidine. COPD: stable, no ssx acute exacerbation, cont scheduled and prn nebs/inhalers, wean o2 as able Tobacco Abuse: counseled on cessation d/t pulm risks, cv risks and poor bone healing GERD: no c/o dyspepsia or reflux, resume home ppi Anxiety/Depression:No acute issues cont home medications and prn anxiolytics Recent mechanical fall with left-sided rib fractures-continue current pain regimen. Patient will be at risk for atelectasis and would recommend aggressive use of lung expansion maneuvers perioperatively. Currently not manifesting signs or symptoms of decompensated pulmonary function. Acute Post Hemorrhagic Anemia (D62) - Consistent with acute blood loss at the time of surgery based on review of current Hgb of 8.5 on 11/21, preoperative Hgb, and surgical EBL. Patient currently without indications for transfusion but will require ongoing management while hospitalized including lab monitoring, intravenous fluids, and pulse oximetry with supplemental oxygen for RASaO2 less than 90%. Azotemia/Elevated Creatinine (R79.89) - Creatinine just above the normal range on 11/21. This is likely secondary to volume depletion, will continue to hydrate and monitor urine output and blood chemistries. Drop in Hgb from 11/20 to 11/21 noted. Chief Complaint Postoperative medical co-management. Postoperative Information Postoperative Follow Up Postoperative Follow Up: Day 2. Health Status Allergies Allergic Reactions (Selected) Severe Ancef- Anaphylactic reaction. NSAIDs- Anaphylactic reaction. Mild Morphine- Hives and itching. Subjective Pain control: Mild surgical site pain, adequately controlled Cardiovascular: Denies chest pain or chest pressure Respiratory: Denies dyspnea or cough Gastrointestinal: Denies abdominal pain, denies nausea or vomiting, reports passing flatus Genitourinary: Denies dysuria, urine output as noted Neurological: Denied neurological deficits, or changes in strength or sensation Musculoskeletal: Defer to primary service Objective Last Charted Vital Signs Temperature: 98.8 (11/21 08:32) Pulse: 84 (11/21 08:32) Respiration: 14 (11/21 08:32) BP: 114/71 (11/21 08:32) Pulse Ox: 96 (11/21 08:32) Oxygen Delivery: Nasal cannula (11/21 04:00) O2 Device Flow: 2 L/min Pain Score: 7 (11/21 09:06) General: Responds appropriately; no apparent distress Cardiovascular: Regular rate and rhythm; no murmur, rub, or gallop Respiratory: Clear to auscultation; normal respiratory effort Abdomen: Soft; non-distended; non-tender; bowel sounds normoactive Musculoskeletal: Defer to primary service Skin: No rashes Neurological: Alert and oriented x 3; appropriate mood and affect; follows commands/requests appropriately. Intake and Output (Previous 24Hrs) I and O Summary Begin date: 11/20 11:06 End date: 11/21 11:06 24 Hour Intake: 293.33 Output: 3045.00 Balance: -2751.67 Last BM: No BM Charted Results Review Labs - Last 36 hours (Max 2 / lab test) CHEMISTRY (more content not included)... [facility] 11-20-2020 Hospital Progress note Patient: TRINITY GODINEZ MRN: [id number] [facility]: [id number] Age: 65 years Sex: Female : 1955 Associated Diagnoses: None Author: Andrew VEGA , Jose Carrasco Supervising Physician Comments Documentation By: Consulting Physician. Assessment Assessment Diagnosis: Osteoarthritis (GAG37-PG M19.90, 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 Smith on 11/19/2020: - The ID service has been consulted for infection and antibiotic management. DVT px: increased risk of postop recurrence, defer choice and timing of any pharmacologic dvt px to surgeon per current ACCP guidelines and recommend aggressive nonpharmacologic modalities -She will be at risk for recurrent thromboembolism while off her Coumadin. Bridge Lovenox should be utilized concurrently with resumption of Coumadin and be maintained until INR is again between 2 and 3 - Chart reviewed on rounds 11/20. Coumadin restarted by the primary surgical service but per Case Management notes, no bridging anticoagulation is to be used. Thrombophilia: hx of PE, increased risk manage anticoagulation as detailed above - As noted above, Coumadin restarted but no bridging anticoagulation to be ordered. Suspected LUPE by screening: Increased risk for pulmonary complications necessitate close cardiopulmonary monitoring including telemetry and continuous pulse oximetry -cont aggressive pulmonary toilet and is q1h w/a -wean o2 as able - Denied respiratory symptoms on rounds 11/20. Continue to monitor on the BISBEE LUPE protocol. Obesity: BMI 33. follow per lupe/obesity postop protocol as noted above HTN: elevated today d/t pain and held meds from DOS, should improve with resumption of home meds, prns remain available for persistent elevations - Acceptable postoperative control, last reading noted at 99/63 on 11/20. Continue home prescription antihypertensive medicines and as needed clonidine. COPD: stable, no ssx acute exacerbation, cont scheduled and prn nebs/inhalers, wean o2 as able Tobacco Abuse: counseled on cessation d/t pulm risks, cv risks and poor bone healing GERD: no c/o dyspepsia or reflux, resume home ppi Anxiety/Depression:No acute issues cont home medications and prn anxiolytics Recent mechanical fall with left-sided rib fractures-continue current pain regimen. Patient will be at risk for atelectasis and would recommend aggressive use of lung expansion maneuvers perioperatively. Currently not manifesting signs or symptoms of decompensated pulmonary function. Acute Post Hemorrhagic Anemia (D62) - mild and tolerating well, Hgb 10.2 on 11/20. No indication for transfusion at this time. Chief Complaint Postoperative Medical Care Postoperative Information Postoperative Follow Up Postoperative Follow Up: Day 1. Health Status Allergies Allergic Reactions (Selected) Severe Ancef- Anaphylactic reaction. NSAIDs- Anaphylactic reaction. Mild Morphine- Hives and itching. Subjective Pain control: Mild surgical site pain, adequately controlled Cardiovascular: Denies chest pain or chest pressure Respiratory: Denies dyspnea or cough Gastrointestinal: Denies abdominal pain, denies nausea or vomiting, reports passing flatus Genitourinary: Denies dysuria, urine output as noted Neurological: Denied neurological deficits, or changes in strength or sensation Musculoskeletal: Defer to primary service Objective Last Charted Vital Signs Temperature: 99.8 (11/20 12:57) Pulse: 93 (11/20 12:57) Respiration: 14 (11/20 12:57) BP: 99/63 (11/20 12:57) Pulse Ox: 95 (11/20 08:25) Oxygen Delivery: Room air (11/20 08:25) Pain Score: 9 (11/20 14:37) General: Responds appropriately; no apparent distress Cardiovascular: Regular rate and rhythm; no murmur, rub, or gallop Respiratory: Clear to auscultation; normal respiratory effort Abdomen: Soft; non-distended; non-tender; bowel sounds normoactive Musculoskeletal: Defer to primary service Skin: No rashes Neurological: Alert and oriented x 3; appropriate mood and affect; follows commands/requests appropriately. Intake and Output (Previous 24Hrs) I and O Summary Begin date: 11/19 14:49 End date: 11/20 14:49 24 Hour Intake: 150.00 Output: 1755.00 Balance: -1605.00 Last BM: No BM Charted Results Review Labs - Last 36 hours (Max 2 / lab test) CHEMISTRY Sodium 139 (11/20 04:20) Potassium 4.4 (11/20 04:20) Chloride 104 (11/20 04:20) CO2 24 (11/20 04:20) Glucose 126 (11/20 04:20) Glucose POCT No result BUN 18 (11/20 04:20) Creatinine 0.97 (11/20 04:20) Calcium Total 8.3 (11/20 04:20) Magnesium No result HEMATOLOGY WBC 9.5 (11/20 04:20) RBC 3.38 (11/20 04:20) Hb 10.2 (11/20 04:20) Hematocrit 30.7 (11/20 04:20) Platelets 246 (11/20 04:2 (more content not included)... [facility] 11-19-2020 Hospital Progress note Patient: TRINITY GODINEZ MRN: ([id number] Age: 65 years Sex: Female : 1955 Associated Diagnoses: None Author: Montana Reynoso MD Assessment Assessment Diagnosis: Osteoarthritis (YHE67-HH M19.90, 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 Smith on 11/19/2020: seen DOS postop in PACU: I have ordered pain control with iv narcotics initially and plan on converting to orals in next 24h, PT/OT per protocol DVT px: increased risk of postop recurrence, defer choice and timing of any pharmacologic dvt px to surgeon per current ACCP guidelines and recommend aggressive nonpharmacologic modalities -She will be at risk for recurrent thromboembolism while off her Coumadin. Bridge Lovenox should be utilized concurrently with resumption of Coumadin and be maintained until INR is again between 2 and 3 Thrombophilia: hx of PE, increased risk manage anticoagulation as detailed above Suspected LUPE by screening: Increased risk for pulmonary complications necessitate close cardiopulmonary monitoring including telemetry and continuous pulse oximetry -cont aggressive pulmonary toilet and is q1h w/a -wean o2 as able Obesity: BMI 33. follow per lupe/obesity postop protocol as noted above HTN: elevated today d/t pain and held meds from DOS, should improve with resumption of home meds, prns remain available for persistent elevations COPD: stable, no ssx acute exacerbation, cont scheduled and prn nebs/inhalers, wean o2 as able Tobacco Abuse: counseled on cessation d/t pulm risks, cv risks and poor bone healing GERD: no c/o dyspepsia or reflux, resume home ppi Anxiety/Depression:No acute issues cont home medications and prn anxiolytics Recent mechanical fall with left-sided rib fractures-continue current pain regimen. Patient will be at risk for atelectasis and would recommend aggressive use of lung expansion maneuvers perioperatively. Currently not manifesting signs or symptoms of decompensated pulmonary function. Chief Complaint Postoperative Medical Care Postoperative Information Postoperative Follow Up Postoperative Follow Up: Day 0. Health Status Allergies Allergic Reactions (Selected) Severe Ancef- Anaphylactic reaction. NSAIDs- Anaphylactic reaction. Mild Morphine- Hives and itching. Subjective Patient seen in PACU, indicates that pain is partially controlled but appropriately localized and improving s/p ipack/acb/general. No reported events or significant EBL in the OR. Denies chest pain, shortness of breath, or nausea/vomiting. Review of Systems Constitutional: denies fever. Head/Neck: denies headache. Eye: denies eye pain. Ear/Nose/Mouth/Throat: denies sore throat. Neurologic: denies new focal weakness. Cardiovascular: denies chest pain. Respiratory: denies dyspnea. Gastrointestinal: denies abdominal pain. Genitourinary: denies incomplete emptying Skin: denies rash. Objective Last Charted Vital Signs Temperature: 97.1 (11/19 16:00) Pulse: 82 (11/19 17:00) Respiration: 11 (11/19 17:00) BP: 154/59 (11/19 16:00) Pulse Ox: 97 (11/19 16:00) Oxygen Delivery: Nasal cannula (11/19 16:00) O2 Device Flow: 2 L/min Pain Score: 8 (11/19 17:00) General - No Apparent Distress but rather uncomfortable appearing Skin - No Rash, Normal Turgor Cardiovascular - Regular Rate and Rhythm, No Murmurs, Gallops or Rubs, No Peripheral Edema Respiratory - CTA, Normal Resp. Effort GI - Soft Nontender, Positive Bowel Sounds, No Hepatosplenomegaly Musculoskeletal - Dorsiflexion Intact, No Calf Tenderness Neuro/Psych - A and Ox3, Appropriate Mood and Affect Intake and Output (Previous 24Hrs) I and O Summary Begin date: 11/18 17:11 End date: 11/19 17:11 24 Hour Intake: 333.33 Output: 585.00 Balance: -251.67 Last BM: No BM Charted Results Review Labs - Last 36 hours (Max 2 / lab test) CHEMISTRY Sodium No result Potassium No result Chloride No result CO2 No result Glucose No result Glucose POCT No result BUN No result Creatinine No result Calcium Total No result Magnesium No result HEMATOLOGY WBC No result RBC No result Hb No result Hematocrit No result Platelets No result MCV No result MCH No result RDW No result MCHC No result Neutrophil Ab No result Monocyte Ab No result Eosinophil Ab No result Basophil Ab No result Lymphocyte Ab No result COAGULATION Partial Thromboplastin (aPTT) 25.4 Sec (11/17 12:55) INR 1.1 (11/17 12:55) Prothrombintime (PT) 14.1 Sec (11/17 12:55) X-rays last 36 hours XR Knee 1-2 Views LT: 11/19/20 16:24:17 See Radiology Report for More Detail [facility] 11-19-2020 Mycobacterium sp Org specific cx Ql (Unsp spec) FOR[facility] NAMED [facility] Microbiology PROCEDURE: Culture AFB and Stain SOURCE: Tissue BODY SITE: COLLECTED DATE/TIME: 11/19/2020 13:59 EDT RECEIVED DATE/TIME: 11/19/2020 13:59 EDT START DATE/TIME: 11/19/2020 13:59 EDT FREE TEXT SOURCE: TISSUE-LT KNEE D INTERFACED REPORTS Final Report [] Verified Date/Time/Personnel: 01/26/2021 04:05 EDT CONTRIBUTOR_SYSTEM, CO_PN NO ACID FAST BACILLI GROWN AFTER 8 WEEKS Preliminary Report [] Verified Date/Time/Personnel: 11/20/2020 00:59 EDT CONTRIBUTOR_SYSTEM, CO_PN CULTURE IN PROGRESS CULTURE WILL BE UPDATED IF AN ACID FAST BACILLI IS ISOLATED CULTURE WILL BE HELD FOR 6-8 WEEKS. Acid Fast Smear Report [] Verified Date/Time/Personnel: 11/20/2020 00:58 EDT CONTRIBUTOR_SYSTEM, CO_PN NO ACID FAST BACILLI SEEN [facility] Comment on above: Performed By: #### 5 [id number] ####[address] 11-19-2020 Mycobacterium sp Org specific cx Ql (Unsp spec) FOR[facility] NAMED [facility] Microbiology PROCEDURE: Culture AFB and Stain SOURCE: Tissue BODY SITE: COLLECTED DATE/TIME: 11/19/2020 13:58 EDT RECEIVED DATE/TIME: 11/19/2020 13:58 EDT START DATE/TIME: 11/19/2020 13:58 EDT FREE TEXT SOURCE: TISSUE-LT KNEE C INTERFACED REPORTS Final Report [] Verified Date/Time/Personnel: 01/26/2021 04:05 EDT CONTRIBUTOR_SYSTEM, CO_PN NO ACID FAST BACILLI GROWN AFTER 8 WEEKS Preliminary Report [] Verified Date/Time/Personnel: 11/20/2020 00:59 EDT CONTRIBUTOR_SYSTEM, CO_PN CULTURE IN PROGRESS CULTURE WILL BE UPDATED IF AN ACID FAST BACILLI IS ISOLATED CULTURE WILL BE HELD FOR 6-8 WEEKS. Acid Fast Smear Report [] Verified Date/Time/Personnel: 11/20/2020 00:58 EDT CONTRIBUTOR_SYSTEM, CO_PN NO ACID FAST BACILLI SEEN [facility] Comment on above: Performed By: #### 5 [id number] ####[address] 11-19-2020 Mycobacterium sp Org specific cx Ql (Unsp spec) [facility] NAMED [facility] Microbiology PROCEDURE: Culture AFB and Stain SOURCE: Tissue BODY SITE: COLLECTED DATE/TIME: 11/19/2020 13:57 EDT RECEIVED DATE/TIME: 11/19/2020 13:57 EDT START DATE/TIME: 11/19/2020 13:57 EDT FREE TEXT SOURCE: TISSUE-LT KNEE B INTERFACED REPORTS Final Report [] Verified Date/Time/Personnel: 01/26/2021 04:05 EDT CONTRIBUTOR_SYSTEM, CO_PN NO ACID FAST BACILLI GROWN AFTER 8 WEEKS Preliminary Report [] Verified Date/Time/Personnel: 11/20/2020 00:59 EDT CONTRIBUTOR_SYSTEM, CO_PN CULTURE IN PROGRESS CULTURE WILL BE UPDATED IF AN ACID FAST BACILLI IS ISOLATED CULTURE WILL BE HELD FOR 6-8 WEEKS. Acid Fast Smear Report [] Verified Date/Time/Personnel: 11/20/2020 00:58 EDT CONTRIBUTOR_SYSTEM, CO_PN NO ACID FAST BACILLI SEEN [facility] Comment on above: Performed By: #### 5 0941-4 ####[address] 11-19-2020 Mycobacterium sp Org specific cx Ql (Unsp spec) [facility] NAMED [facility] Microbiology PROCEDURE: Culture AFB and Stain SOURCE: Tissue BODY SITE: COLLECTED DATE/TIME: 11/19/2020 13:56 EDT RECEIVED DATE/TIME: 11/19/2020 13:56 EDT START DATE/TIME: 11/19/2020 13:56 EDT FREE TEXT SOURCE: TISSUE-LT KNEE A INTERFACED REPORTS Final Report [] Verified Date/Time/Personnel: 01/26/2021 04:04 EDT CONTRIBUTOR_SYSTEM, CO_PN NO ACID FAST BACILLI GROWN AFTER 8 WEEKS Preliminary Report [] Verified Date/Time/Personnel: 11/20/2020 00:59 EDT CONTRIBUTOR_SYSTEM, CO_PN CULTURE IN PROGRESS CULTURE WILL BE UPDATED IF AN ACID FAST BACILLI IS ISOLATED CULTURE WILL BE HELD FOR 6-8 WEEKS. Acid Fast Smear Report [] Verified Date/Time/Personnel: 11/20/2020 00:58 EDT CONTRIBUTOR_SYSTEM, CO_PN NO ACID FAST BACILLI SEEN [facility] Comment on above: Performed By: #### 5 0941-4 ####[address] 11-19-2020 Anesthesiology Preoperative evaluation and management note Patient: TRINITY GODINEZ MRN: ([id number] Age: 65 years Sex: Female : 1955 Associated Diagnoses: None Author: Angel Wyatt MD Preoperative Information Diagnosis No diagnoses charted Planned Procedure Left Knee Radical Debridement Histories Past Medical History: Active Anxiety CHF (congestive heart failure) COPD (chronic obstructive pulmonary disease) Depression Hypertension Osteoarthritis PE (pulmonary thromboembolism) - 2019 Resolved COVID-19 - 05/2020 Social History: Type of Tobacco Use: Cigarettes Pt Accepted Tobacco Use..: No Tobacco Use Cessation I..: No Smoking Status: Current everyday smoker How Often Do You Drink ..: Never (0) E-Cig/Vaped Last 90 Day..: No Surgical/Procedure History: Surgical/Procedure Hx No active procedure history items have been selected or recorded. Anesthesia History: No previous anesthetic complications Review of Systems Constitutional Cardiovascular Ear/Nose/Mouth/Throat Respiratory Gastrointestinal Hematology/Lymphatics Genitourinary Obstetric Neurologic Psychiatric Medications Allergies NSAIDs: Severe, Anaphylactic reaction Ancef: Severe, Anaphylactic reaction morphine: Mild, Itching All Medications Admission Med Reconciliation: Complete 11/19/20 05:37:52 by Sarah BERMUDEZ , Ange Sloan Dante Medications: ascorbic acid 1,000 mg = 1 Tab, PO, Daily,, Last Dose: 11/16/20 00:00 Still taking, as prescribed aclidinium 1 Puff, Inhalation, Daily,, am,, Each Last Dose: 11/16/20 00:00 Still taking, as prescribed warfarin 3 mg = 1 Tab, PO, Daily,, am,, Each Last Dose: 11/14/20 00:00 Still taking, as prescribed Comment: See compliance venlafaxine 150 mg = 1 Cap, PO, Daily,, am,, Each Last Dose: 11/16/20 00:00 Still taking, as prescribed sucralfate 1 Gm = 1 Tab, PO, ac+bedtime,,, Each Last Dose: 11/16/20 00:00 Still taking, as prescribed isosorbide mononitrate 60 mg = 1 Tab, PO, Daily,, am,, Each Last Dose: 11/17/20 00:00 Still taking, as prescribed potassium chloride 10 mEq = 1 Tab, PO, BID,, Last Dose: 11/16/20 00:00 Still taking, as prescribed metoprolol 100 mg = 1 Tab, PO, Daily,, Last Dose: 11/17/20 00:00 Still taking, as prescribed Comment: Beta-B' gabapentin 600 mg = 2 Cap, PO, BID,,, Each Last Dose: 11/17/20 00:00 Still taking, as prescribed diazePAM 2 mg = 1 Tab, PO, BID,, Last Dose: 11/16/20 00:00 Still taking, as prescribed venlafaxine 75 mg = 1 Cap, PO, Daily,, am,, Each Last Dose: 11/16/20 00:00 Still taking, as prescribed TiZANidine 4 mg = 1 Tab, PO, BID,,, Each Last Dose: 11/16/20 00:00 Still taking, as prescribed pantoprazole 40 mg = 1 Tab, PO, Daily,, Last Dose: 11/17/20 00:00 Still taking, as prescribed hydroCHLOROthiazide 25 mg = 1 Tab, PO, Daily,, am,, Each Last Dose: 11/16/20 00:00 Still taking, as prescribed albuterol 2 Puff, Inhalation, Q6h, PRN,, Each Last Dose: 11/16/20 00:00 Still taking, as prescribed temazepam 30 mg = 1 Cap, PO, Bedtime, PRN,, Each Last Dose: 11/16/20 00:00 Still taking, as prescribed Acetaminophen-OxyCODONE 2 Tab, PO, Q6h, PRN,, Each Last Dose: 11/18/20 00:00 Still taking, as prescribed hyoscyamine 0.125 mg = 1 Tab, Subl, QID, PRN, Last Dose: 11/14/20 00:00 Still taking, as prescribed promethazine 25 mg = 1 Tab, PO, PRN, Last Dose: 11/16/20 00:00 Still taking, as prescribed Inpatient Medications: Lidocaine 1% Inj 2 mL PF (Xylocaine GEq) 2 mg = 0.2 mL, IntraDermal, Inject, Pre-Procedure x 30 Day(s) , Comment: For IV Insertion Last Dose: Not Given hydroCHLOROthiazide (unverified) 25 mg = 1 Tab, PO, Tab, Daily, x 30 Day(s), 11/21/20 9:00:00 EDT Last Dose: Not Given tiotropium (unverified) = 1 Inh, Inhalation, Cap, Daily, x 30 Day(s), 11/20/20 9:00:00 EDT Last Dose: Not Given diazePAM (unverified) 2 mg, PO, Tab, BID, x 30 Day(s), 11/19/20 21:00:00 EDT Last Dose: Not Given gabapentin (unverified) 600 mg, PO, Cap, BID, x 30 Day(s), 11/19/20 21:00:00 EDT Last Dose: Not Given TiZANidine (unverified) 4 mg = 1 Tab, PO, Tab, BID, x 30 Day(s), 11/19/20 21:00:00 EDT Last Dose: Not Given metoprolol (unverified) 100 mg, PO, Tab ER, Daily, x 30 Day(s), 11/19/20 11:25:00 EDT , Comment: ---hold for sbp below 100 or hr below 50At home, patient was taking medication with the following details:Special Last Dose: Not Given albuterol (unverified) 2 Puff, Inhalation, Q4h x 30 Day(s), PRN Shortness of Breath, 11/19/20 5:34:00 EDT Last Dose: Not Given Current IV Orders: Tranexamic Acid 100 mg/mL Vial 10 mL (Cyklokapron GEq) 1,000 mg = 10 mL, IV Push, Inject, Pre-Procedure x 30 Day(s) Last Dose: Not Given Comment: Anesthesia to administer upon induction if patient not able to receive oral dose Gentamicin 380 mg = 9.5 mL, IVPB, Pre-Procedure x 30 Day(s) Last Dose: Not Given Comment: For Extended Interval Dosing Over 60 Minutes Lactated Ringers 1,000 mL 1,000 mL, 1,000 m (more content not included)... [facility] 11-17-2020 Hospital Progress note Patient: TRINITY GODINEZ Age: 65 years Sex: Female : 1955 Associated Diagnoses: None Author: Gianni VEGA , Salome Albert Supervising Physician Comments Documentation By: Consulting Physician. Comments [x] Patient/surgeon request nerve block for post-op analgesia [x] Risks/benefits discussed, consent obtained prior to the start of the procedure. Procedure: [] Right [x] Left [] Interscalene [] Axillary [] Sciatic gluteal [] Sciatic popliteal fossa [x] Femoral [] Ankle [] Supraclavicular [] Infraclavicular [] Epidural [x] Other adductor canal block Location performed: [x] Preoperative Holding Area [] Operating Room [] Other Patient position: [x] Supine [] Prone [] Sitting [] Other [x] Positioned with monitors applied [x] TIME OUT was completed prior to the start of the procedure: [x] Correct patient [x] Correct procedure [x] Correct site [] Oxygen liters/minute by: [] nasal cannula [] face mask [x] Sedation was initiated as follows: [x] Midazolam 2____ mg IV [] Fentanyl mcg IV [] Propofol mg IV [] Other: [] The site was prepped in the usual sterile fashion. The skin and subcutaneous tissues were infiltrated with % lidocaine. There were no signs of intraneural needle placement or intraneural injection. Local anesthetic was injected incrementally with frequent aspirations to look for the presence of blood or cerebrospinal fluid or signs of intravenous or intrathecal/subdural injection as follows: Needle(s): [] Short-bevel [] Long-bevel [] Tuohy [x] Stimuplex [] Pencil-tipped [x] Needle gauge #__20__ [] Nerve stimulator/Lowest motor stim ____ mA [] Paresthesia Technique [x] Ultrasound (US) guided [x] The needle was advanced under US guidance to proximity of the nerve(s) [x] Spread of Local Anesthesia visualized on US [] Catheter threaded, taped and secured [] Other [] Hanging drop [] Loss of resistance with: [] air [] saline [] Epidural test dose 1.5% lidocaine with epinephrine 1:200,000 ____ ml [] negative [] positive [] Other comments ____ Local anesthetic/agents injected [x]___20__ ml 0.5% ropivacaine [] ml 0.2% ropivacaine [] ml 2% mepivacaine [] ml 2% lidocaine with/without epinephrine 1:200,000 [] ml 0.5% bupivacaine with/without epinephrine 1:200,000 [] ml 0.25% bupivacaine with/without epinephrine 1:200,000 [] ml [x] Procedure complete: there were no signs or symptoms of intravascular, intraneural, subdural or intrathecal local anesthetic injection throughout the procedure. [facility] 11-17-2020 Anesthesiology Preoperative evaluation and management note Patient: TRINITY GODINEZ MRN: [id number] Age: 65 years Sex: Female : 1955 Associated Diagnoses: None Author: Salome Archer MD Preoperative Information Active Diagnosis Encounter for other preprocedural examination Planned Procedure Left Knee Radical Debridement Histories Past Medical History: Past Medical Hx No active or resolved past medical history items have been selected or recorded., Active Anxiety CHF (congestive heart failure) COPD (chronic obstructive pulmonary disease) Depression Hypertension Osteoarthritis PE (pulmonary thromboembolism) - 2018 Resolved COVID-05/2020 , Cardiovascular, Respiratory, Renal, Endocrine, Neurological, Musculoskeletal, Gastrointestinal, Hematology Social History: Type of Tobacco Use: Cigarettes Pt Accepted Tobacco Use..: No Tobacco Use Cessation I..: No Smoking Status: Current everyday smoker How Often Do You Drink ..: Never (0) E-Cig/Vaped Last 90 Day..: No Surgical/Procedure History: Surgical/Procedure Hx No procedure history items have been selected or recorded. Anesthesia History: No previous anesthetic complications, Anesthetic History No anesthetic history charted. Medications Allergies NSAIDs: Severe, Anaphylactic reaction Ancef: Severe, Anaphylactic reaction morphine: Mild, Itching All Medications Admission Med Reconciliation: Complete 11/16/20 11:29:18 by Fely BERMUDEZ , Teresita Gibbs Dante Medications: ascorbic acid 1,000 mg = 1 Tab, PO, Daily,, Last Dose: 11/12/20 00:00 Still taking, as prescribed aclidinium 1 Puff, Inhalation, Daily,, am,, Each Last Dose: 11/16/20 00:00 Still taking, as prescribed warfarin 3 mg = 1 Tab, PO, Daily,, am,, Each Last Dose: 11/15/20 18:00 Still taking, as prescribed Comment: See compliance venlafaxine 150 mg = 1 Cap, PO, Daily,, am,, Each Last Dose: 11/17/20 09:00 Still taking, as prescribed sucralfate 1 Gm = 1 Tab, PO, ac+bedtime,,, Each Last Dose: 11/16/20 00:00 Still taking, as prescribed isosorbide mononitrate 60 mg = 1 Tab, PO, Daily,, am,, Each Last Dose: 11/17/20 09:00 Still taking, as prescribed potassium chloride 10 mEq = 1 Tab, PO, BID,, Last Dose: 11/16/20 00:00 Still taking, as prescribed metoprolol 100 mg = 1 Tab, PO, Daily,, Last Dose: 11/17/20 09:00 Still taking, as prescribed Comment: Beta-B' gabapentin 600 mg = 2 Cap, PO, BID,,, Each Last Dose: 11/17/20 09:00 Still taking, as prescribed diazePAM 2 mg = 1 Tab, PO, BID,, Last Dose: 11/16/20 00:00 Still taking, as prescribed venlafaxine 75 mg = 1 Cap, PO, Daily,, am,, Each Last Dose: 11/17/20 09:00 Still taking, as prescribed TiZANidine 4 mg = 1 Tab, PO, BID,,, Each Last Dose: 11/16/20 00:00 Still taking, as prescribed pantoprazole 40 mg = 1 Tab, PO, Daily,, Last Dose: 11/16/20 00:00 Still taking, as prescribed hydroCHLOROthiazide 25 mg = 1 Tab, PO, Daily,, am,, Each Last Dose: 11/16/20 00:00 Still taking, as prescribed albuterol 2 Puff, Inhalation, Q6h, PRN,, Each Last Dose: 11/16/20 00:00 Still taking, as prescribed temazepam 30 mg = 1 Cap, PO, Bedtime, PRN,, Each Last Dose: 11/16/20 00:00 Still taking, as prescribed Acetaminophen-OxyCODONE 2 Tab, PO, Q6h, PRN,, Each Last Dose: 11/16/20 00:00 Still taking, as prescribed hyoscyamine 0.125 mg = 1 Tab, Subl, QID, PRN, Last Dose: 10/27/20 00:00 Still taking, as prescribed promethazine 25 mg = 1 Tab, PO, PRN, Last Dose: 11/16/20 00:00 Still taking, as prescribed Inpatient Medications: Lidocaine 1% Inj 2 mL PF (Xylocaine GEq) 2 mg = 0.2 mL, IntraDermal, Inject, Pre-Procedure x 30 Day(s) , Comment: For IV Insertion Last Dose: Not Given hydroCHLOROthiazide (unverified) 25 mg = 1 Tab, PO, Tab, Daily, x 30 Day(s), 11/19/20 9:00:00 EDT Last Dose: Not Given Freetext Medication (unverified) tudorza 400mcg/inh, Inhalation, Daily x 30 Day(s), 11/18/20 9:00:00 EDT Last Dose: Not Given metoprolol (unverified) 100 mg, PO, Tab ER, Daily, x 30 Day(s), 11/18/20 9:00:00 EDT Last Dose: Not Given gabapentin (unverified) 600 mg, PO, Cap, BID, x 30 Day(s), 11/17/20 21:00:00 EDT Last Dose: Not Given TiZANidine (unverified) 4 mg = 1 Tab, PO, Tab, BID, x 30 Day(s), 11/17/20 21:00:00 EDT Last Dose: Not Given diazePAM (unverified) 2 mg, PO, Tab, BID, x 30 Day(s), 11/17/20 21:00:00 EDT Last Dose: Not Given albuterol (unverified) 2 Puff, Inhalation, Q4h x 30 Day(s), PRN Shortness of Breath, 11/17/20 9:00:00 EDT Last Dose: Not Given Current IV Orders: Gentamicin 380 mg = 9.5 mL, IVPB, Pre-Procedure x 30 Day(s) Last Dose: Not Given Comment: For Extended Interval Dosing Over 60 Minutes Tranexamic Acid 100 mg/mL Vial 10 mL (Cyklokapron GEq) 1,000 mg = 10 mL, IV Push, Inject, Pre-Procedure x 30 Day(s) Last Dose: Not Given Comment: Anesthesia to administer upon induction if patient not able to receive oral dose Lactated Ringers 1,000 mL 1,000 mL, 1,000 mL, 20 mL/hr, I (more content not included)... 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 * Acute Pain Management: General Info (Norwegian) * Opioids: Safe Use (Norwegian) * Fall Prevention (Norwegian) * DVT (Deep Vein Thrombosis): Prevention: General Info (Norwegian) * Constipation (Norwegian) * Incentive Spirometer: General Info (Norwegian) * warfarin (oral) (Norwegian) * Enoxaparin (Lovenox) (Norwegian) [facility] Attachments The following attachments cannot be sent through Care Everywhere. * DVT (Deep Vein Thrombosis): Prevention: General Info (Norwegian) * Incentive Spirometer: General Info (Norwegian) * Fall Prevention (Norwegian) * Opioids: General Info (Norwegian) * Constipation (Norwegian) * warfarin (oral) (Norwegian) * enoxaparin (Norwegian) * Antibiotics: General Info (Norwegian) [facility] Auth/Cert Specialty Diagnoses / Procedures Referred By Contac t Referred To Contact Diagnoses Unilateral primary osteoarthritis, right knee M17.11 Procedures [place] ARTHROPLASTY KNEE CONDYLE&PLATEAU MED/LAT CPTS W/WO PATELLA RESURFACING [place] ARTHROPLASTY KNEE CONDYLE&PLATEAU MED/LAT CPTS W/WO PATELLA RESURFACING Right total knee arthroplasty Calos Smith MD [address] [place] [address] Referral ID Status Reason Start Date Expiration Date Visits Re quested Visits Authorized [id number] 11/08/2021 1 1 [facility] Narrative* Auth/Cert Specialty Diagnoses / Procedures Referred By Contac t Referred To Contact Diagnoses 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 Summary Purpose Family History No Family History Records FoundNo Family History Records FoundNo Family History Records FoundNo Family History Records FoundNo Family History Records FoundNo Family History Records FoundNo Family History Records FoundNo Family History Records Found Advance Directives No Advanced Directives Records FoundLatest Code Status on File Code Status Date Activated Date Inactivated Comments Full Code 01/08/2021 12:36 AM Cutover o rder - Refer to legacy medical record for details and original code status order details. Latest Code Status on File Code Status Date Activated Date Inactivated Comments Full Code 01/08/2021 12:36 AM 01/08/2021 8:44 PM Cuto leila order - Refer to legacy medical record for details and original code status order details. Latest Code Status on File Code Status Date Activated Date Inactivated Comments Full Code - Default 04/20/2022 4:55 PM 04/22/2022 3:19 P M This is order is used when code status has not been discussed with the patient, or code status is otherwise unknown/unconfirmed To update the patient's code status, place a code status order. Do not modify or discontinue any currently active code status orders. Provide all therapy to prevent/treat cardiac or respiratory arrest. Code Status History Code Status Date Activated Date Inactivated Comments Full Code 01/08/2021 12:36 AM 01/08/2021 8:44 PM Cuto leila order - Refer to legacy medical record for details and original code status order details. Procedure Findings Note Patient: TRINITY GODINEZ MRN : ([facility])-[id number] Age: 65 years Sex: Female : 1955 Associated Diagnoses: None Author: Maixmiliano Rush DO Subjective Subjective: Patient participated in the evaluation: Yes. Nausea: not present. Vomiting: not present. Pain: acceptable pain control. Objective Objective: Vital Signs: Last Charted Vital Signs Temperature: 97.1 (11/19 16:00) Pulse: 81 (11/19 16:00) Respiration: 16 (11/19 16:00) BP: 136/48 (11/19 16:00) Pulse Ox: 98 (11/19 16:00) Oxygen Delivery: Nasal cannula (11/19 16:00) O2 Device Flow: 3 L/min Pain Score: 9 (11/19 16:13) . Mental Status: alert and oriented. Postoperative hydration: adequate. Assessment Assessment: Airway patent: yes. Plan Plan: Postanesthesia Plan: post anesthetic surveillance concluded. Note Patient: TRINITY GODINEZ MRN : ([facility])-[id number] Age: 65 years Sex: Female : 1955 Associated Diagnoses: None Author: Pramod Parry MD Supervising Physician Comments Documentation By: Consulting Physician. Subjective Subjective: Patient participated in the evaluation: Yes. Nausea: not present. Vomiting: not present. Pain: acceptable pain control. Objective Objective: Vital Signs: Last Charted Vital Signs Temperature: 97 (01/03 14:45) Pulse: 95 (01/03 14:45) Respiration: 17 (01/03 14:45) BP: 176/60 (01/03 14:45) Pulse Ox: 100 (01/03 14:45) Oxygen Delivery: Nasal cannula (01/03 14:45) O2 Device Flow: 3 L/min Pain Score: 0 (01/03 14:45) . Mental Status: alert and oriented. Postoperative hydration: adequate. Assessment Assessment: Post anesthetic condition: no anesthetic complications. Airway patent: yes. Plan Plan: Postanesthesia Plan: post anesthetic surveillance concluded. Additional Source Comments INFORMATION SOURCE (unrecogn ized section and content) DATE CREATED AUTHOR 11/28/2020 [facility] DATE CREATED AUTHOR AUTHOR'S ORGANIZ ATION 01/12/2021 [facility] DATE CREATED AUTHOR AUTHOR'S ORGANIZ ATION 03/04/2021 [facility] DATE CREATED AUTHOR AUTHOR'S ORGANIZ ATION 04/25/2021 [facility] DATE CREATED AUTHOR AUTHOR'S ORGANIZ ATION 04/30/2021 [facility] DATE CREATED AUTHOR AUTHOR'S ORGANIZ ATION 09/08/[address] [facility] DATE CREATED AUTHOR AUTHOR'S ORGANIZ ATION 02/21/2023 [facility] DATE CREATED AUTHOR AUTHOR'S ORGANIZ ATION 02/21/2023 [facility] Ordered Prescriptions (unrec ognized section and content) Prescription Sig Dispensed Refills Start Date End Da te traMADoL (ULTRAM) 50 mg tablet 1-2 tabs PO Q6HRS PRN 100 tablet 0 01/08/2021 acetaminophen (Tylenol Extra Strength) 500 mg tablet 2 tabs PO q 8hrs for 7 days then PRN, do not exceed 3000 mg daily limit. 50 tablet 0 01/08/2021 oxyCODONE (ROXICODONE) 5 mg immediate release tablet 1-2 tabs PO q4-6hrs PRN moderate to severe pain 40 tablet 0 01/08/2021 Prescription Sig Dispensed Refills Start Date End Da te enoxaparin (LOVENOX) 40 mg/0.4 mL syringe Inject 0.4 mL (40 mg total) under the skin 1 (one) time each day for 7 days. 7 each 0 01/06/2022 01/13/2022 Prescription Sig Dispensed Refills Start Date End Da te enoxaparin (LOVENOX) 40 mg/0.4 mL syringe Inject 0.4 mL (40 mg total) under the skin 1 (one) time each day for 7 days. 7 each 0 04/22/2022 04/29/2022 ondansetron (ZOFRAN) 4 mg tablet Take 1 tablet (4 mg total) by mouth every 8 (eight) hours if needed for nausea or vomiting for up to 7 days. 20 tablet 0 04/20/2022 04/27/2022 oxyCODONE (ROXICODONE) 5 mg immediate release tablet Take 1-2 tablets (5-10 mg total) by mouth every 4 (four) hours if needed for moderate pain or severe pain for up to 7 days. Dx: Z96.6 Max Daily Amount: 60 mg 40 tablet 0 04/20/2022 04/27/2022 traMADoL (ULTRAM) 50 mg tablet Take 1-2 tablets (50-100 mg total) by mouth every 6 (six) hours if needed for moderate pain for up to 7 days. Dx: Z96.6 Max Daily Amount: 400 mg 40 tablet 0 04/20/2022 04/27/2022 clindamycin (Cleocin HCL) 150 mg capsule Take 2 capsules (300 mg total) by mouth every 12 (twelve) hours for 10 days. 20 capsule 0 04/20/2022 04/30/2022 acetaminophen (TYLENOL) 500 mg tablet Take 2 tablets (1,000 mg total) by mouth 3 (three) times a day for 7 days. Take every 8 hours for one week, then as needed. Do not exceed 3,000 mg daily limit. 50 tablet 0 04/20/2022 04/27/2022 aspirin 81 mg chewable tablet Chew 1 tablet (81 mg total) 2 (two) times a day for 7 days. 1) Aspirin 81 mg, 1 tab PO BID for 1 week, Disp appropriate quantity. Patient will restart home warfarin on POD#1. 14 each 0 04/21/2022 04/22/2022 Scheduled Active and Recently Administ ered Medications (unrecognized section and content) Medication Order 01/06/2021 01/07/2021 01/08/2021 aclidinium (TUDORZA) 400 mcg/actuation inhaler 1 puff 1 puff, inhalation, Daily, First dose on 01/08/21 at 0900, Is patient COVID 19 positive or under investigation for COVID 19 (PUI) or in a dual occupancy room? No 1356 (Not Given - Pr ovider: Joseph Bryant - Reason: Medication not available) gabapentin (NEURONTIN) capsule 600 mg 600 mg, oral, 2 times daily, First dose on 01/08/21 at 0900 1002 (Given - Provid er: Kym Wilson RN - Comment: priority of care)2100 (Due) isosorbide mononitrate (IMDUR) 24 hr tablet 60 mg 60 mg, oral, Daily, First dose on 01/08/21 at 0900, Do not crush or chew. 1005 (Given - Provid er: Kym Wilson RN - Comment: priority of care) metoprolol succinate (TOPROL-XL) 24 Hour tablet 100 mg 100 mg, oral, Daily, First dose on 01/08/21 at 0900, Do not crush or chew. 1001 (Given - Provid er: Kym Wilson RN - Comment: priority of care) miconazole (MICOTIN) 2 % cream Topical, 2 times daily, First dose on 01/08/21 at 0900, For 10 days 1238 (Not Given - Pr ovider: Kym Wilson RN - Reason: Other - Comment: no longer using)2100 (Due) midodrine (PROAMATINE) tablet 5 mg 5 mg, oral, 3 times daily, First dose on 01/08/21 at 0900 1000 (Given - Provid er: Kym Wilson RN)1422 (Given - Provider: Kym Wilson RN)2100 (Due) Oxygen Therapy, Adult inhalation, Continuous, First dose on 01/08/21 at 0400, Device: Nasal Cannula, Rate in liters per minute: 2 lpm, Keep O2 Sat Above: 90% 0400 (Due)0800 (Due) 2000 (Due) polyethylene glycol (MIRALAX) packet 17 g 17 g, oral, Daily, First dose on 01/08/21 at 0900 1237 (Not Given - Pr ovider: Kym Wilson RN - Reason: Other - Comment: loose bms) senna-docusate (PERICOLACE) 8.6-50 mg per tablet 1 tablet 1 tablet, oral, 2 times daily, First dose on 01/08/21 at 0900 1238 (Not Given - Pr ovider: Kym Wilson RN - Reason: Other)2100 (Due) sevelamer carbonate (RENVELA) tablet 800 mg 800 mg, oral, 3 times daily with meals, First dose on 01/08/21 at 0800, Do not crush, chew, or split. 0958 (Given - Provid er: Kym Wilson RN - Comment: priority of care)1235 (Given - Provider: Kym Wilson RN)1700 (Due) sucralfate (CARAFATE) tablet 1 g 1 g, oral, 4 times daily before meals and nightly, First dose on 01/08/21 at 1130 1236 (Given - Provid er: Kym Wilson RN - Comment: priority of care)1630 (Due)2200 (Due) temazepam (RESTORIL) capsule 30 mg 30 mg, oral, Nightly, First dose on 01/08/21 at 2100, For 29 doses, HAZARDOUS Drug Precautions - Low Risk (Category A/NIOSH Group 3) Reproductive Risk Only: - Single pair of ASTM standard D6978 certified chemotherapy gloves - Eye protection (goggles or face shield) required only with a potential for facial contact (i.e. concern for spitting or vomiting of the dose during or after administration) - Staff at reproductive risk (actively trying to conceive, or may be become , and ): chemo certified gown and an N95 respirator required when crushing meds (crushing of tabs allowed only in closed pouches) or opening of capsules only for allowable dosage forms 2100 (Due) venlafaxine (EFFEXOR) tablet 75 mg (CANCELED) 75 mg, oral, Daily, First dose on 01/08/21 at 0900 1002 (Given - Provid er: Kym Wilson RN - Comment: priority of care) venlafaxine XR (EFFEXOR-XR) 24 hr capsule 150 mg 150 mg, oral, Daily, First dose on 01/08/21 at 0930, Capsule may be swallowed whole, or may be opened and its contents sprinkled on applesauce if consumed immediately without chewing. Do not crush or chew. 1003 (Given - Provid er: Kym Wilson RN) venlafaxine XR (EFFEXOR-XR) 24 hr capsule 75 mg 75 mg, oral, Daily, First dose on 01/08/21 at 0930, Capsule may be swallowed whole, or may be opened and its contents sprinkled on applesauce if consumed immediately without chewing. Do not crush or chew. 0930 (Due) warfarin (COUMADIN) tablet 3 mg 3 mg, oral, User Specified - warfarin ONLY at 1700 (Daily), First dose on 01/08/21 at 1700, HAZARDOUS Drug Precautions - Low Risk (Category A/NIOSH Group 3) Reproductive Risk Only: - Single pair of ASTM standard D6978 certified chemotherapy gloves - Eye protection (goggles or face shield) required only with a potential for facial contact (i.e. concern for spitting or vomiting of the dose during or after administration) - Staff at reproductive risk (actively trying to conceive, or may be become , and ): chemo certified gown and an N95 respirator required when crushing meds (crushing of tabs allowed only in closed pouches) or opening of capsules only for allowable dosage forms, Indication for use of Warfarin: Other (Enter Indication & INR Target), Enter Indication and INR Target: (free text): home med 1700 (Due) PRN Medication Order 01/06/2021 01/07/2021 01/08/2021 acetaminophen (TYLENOL) tablet 650 mg 650 mg, oral, Every 4 hours PRN, mild pain, fever, Starting on 01/08/21 at 0711 albuterol 2.5 mg /3 mL (0.083 %) nebulizer solution 2.5 mg 2.5 mg, nebulization, Every 4 hours PRN, wheezing, Starting on 01/08/21 at 0720 aluminum-magnesium hydroxide-simethicone (MAALOX) 200-200-20 mg/5 mL suspension 30 mL 30 mL, oral, 4 times daily PRN, indigestion, heartburn, Starting on 01/08/21 at 0705 bisacodyL (DULCOLAX) suppository 10 mg 10 mg, rectal, Once as needed, constipation, Starting on 01/08/21 at 0706, For 1 dose cloNIDine (CATAPRES) tablet 0.1 mg 0.1 mg, oral, Every 6 hours PRN, high blood pressure, prn SBP > 170 , or DBP >105, Starting on 01/08/21 at 0707 cyclobenzaprine (FLEXERIL) tablet 10 mg 10 mg, oral, 3 times daily PRN, muscle spasms, Starting on 01/08/21 at 0704 diazePAM (VALIUM) tablet 2.5 mg 2.5 mg, oral, 2 times daily PRN, anxiety, Starting on 01/08/21 at 0720 HYDROmorphone (DILAUDID) injection 0.5 mg 0.5 mg, intravenous, Every 2 hour PRN, severe pain, Starting on 01/08/21 at 0707 magnesium hydroxide (MILK OF MAGNESIA) 400 mg/5 mL suspension 30 mL 30 mL, oral, Daily PRN, constipation, Starting on 01/08/21 at 0708, Follow dose with 8 oz of water. nalbuphine (NUBAIN) 10 mg/mL injection 2.5 mg 2.5 mg, intravenous, Every 3 hours PRN, itching, Starting on 01/08/21 at 0704 nitroglycerin (NITROSTAT) SL tablet 0.4 mg 0.4 mg, sublingual, Every 5 min PRN, chest pain, Starting on 01/08/21 at 0721, Give every 5 minutes as needed for chest pain to a maximum of 3 doses. Notify MD to obtain an order for an EKG if no relief after 3 doses or chest pain recurs. HOLD and notify MD if SBP less than 90 mmHg. Do not give if nitroglycerin infusion running concurrently. Do not give within 24 hours of sildenafil citrate (Viagra) or vardenafil (Levitra) use, or within 48 hours of tadalafil (Cialis) use. ondansetron (PF) (ZOFRAN) injection 4 mg 4 mg, intravenous, Every 6 hours PRN, nausea, vomiting, Starting on 01/08/21 at 0708 oxyCODONE (ROXICODONE) immediate release tablet 10 mg(Linked Group 1) 10 mg, oral, Every 4 hours PRN, severe pain, Starting on 01/08/21 at 0709 1055 (Given - Provid er: Kym Wilson RN)1505 (Given - Provider: Kym Wilson RN) oxyCODONE (ROXICODONE) immediate release tablet 5 mg(Linked Group 1) 5 mg, oral, Every 6 hours PRN, moderate pain, Starting on 01/08/21 at 0709 1055 (See Alternativ e - Provider: Kym Wilson RN)1505 (See Alternative - Provider: Kym Wilson RN) promethazine (PHENERGAN) suppository 25 mg 25 mg, rectal, Every 4 hours PRN, nausea, vomiting, Starting on 01/08/21 at 0710 promethazine (PHENERGAN) tablet 25 mg 25 mg, oral, Every 4 hours PRN, nausea, vomiting, Starting on 01/08/21 at 0709 traZODone (DESYREL) tablet 50 mg 50 mg, oral, Nightly PRN, sleep, Starting on 01/08/21 at 0710 Linked Groups Order Group 1: oxyCODONE (ROXICODONE) immediate release tablet 5 mgJump to med 5 mg, oral, Every 6 hours PRN, moderate pain, Starting on 01/08/21 at 0709 Or oxyCODONE (ROXICODONE) immediate release tablet 10 mgJump to med 10 mg, oral, Every 4 hours PRN, severe pain, Starting on 01/08/21 at 0709 Scheduled Medication Order 01/04/2022 01/05/2022 01/06/2022 acetaminophen (TYLENOL) tablet 975 mg 975 mg, oral, Every 8 hours, First dose on Sun01/03/22 at 1400 0538 (Given - Provider: Lelo Hagen RN)1336 (Given - Provider: Teresita Hirsch RN)2120 (Given - Provider: Richard Hernandez RN) 0607 (Given - Provider: Richard Hrenandez RN)1429 (Given - Provider: Teresita Hirsch RN)2227 (Given - Provider: Richard Hernandez RN) 0615 (Given - Provider: Richard Hernandez RN) diazePAM (VALIUM) tablet 2.5 mg 2.5 mg, oral, 2 times daily, First dose on Sun01/03/22 at 2100 0835 (Given - Provider: Teresita Hirsch RN)2119 (Given - Provider: Richard Hernandez RN) 0843 (Given - Provider: Teresita Hirsch RN)2041 (Given - Provider: Richard Hernandez RN) 1017 (Given - Provider: Kym Wilson RN) docusate sodium (COLACE) capsule 100 mg 100 mg, oral, 2 times daily, First dose on Sun01/03/22 at 2099 0834 (Given - Provider: Teresita Hirsch RN)2119 (Given - Provider: Richard Hernandez RN) 0845 (Given - Provider: Teresita Hirsch RN)2041 (Given - Provider: Richard Hernandez RN) 1020 (Not Given - Provider: Kym Wilson RN - Reason: Other - Comment: loose bm) enoxaparin (LOVENOX) injection 40 mg 40 mg, subcutaneous, Daily, First dose on Sun01/04/22 at 0900, For 7 days, Indication: VTE/PE Prophylaxis 0834 (Given - Provider: Teresita Hirsch RN) 0842 (Given - Provider: Teresita Hirsch RN) 1016 (Given - Provider: Kym Wilson RN) gabapentin (NEURONTIN) tablet 1,200 mg 1,200 mg, oral, Nightly, First dose on Sun01/03/22 at 20990 (Given - Provider: Richard Hernandez RN) 2041 (Given - Provider: Richard Hernandez RN) gabapentin (NEURONTIN) tablet 600 mg 600 mg, oral, Daily, First dose on Sun01/04/22 at 0900 0835 (Given - Provider: Teresita Hirsch RN) 0844 (Given - Provider: Teresita Hirsch RN) 1016 (Given - Provider: Kym Wilson RN) isosorbide mononitrate (IMDUR) 24 hr tablet 60 mg 60 mg, oral, Daily, First dose on Sun01/04/22 at 0900, Do not crush or chew. 0834 (Given - Provider: Teresita Hirsch RN) 0843 (Given - Provider: Teresita Hirsch RN) 102 (Not Given - Provider: Kym Wilson RN - Reason: Order parameters not met) magnesium hydroxide (MILK OF MAGNESIA) 400 mg/5 mL suspension 30 mL 30 mL, oral, Daily, First dose on Sun01/04/22 at 0900 0839 (Not Given - Provider: Teresita Hirsch RN - Reason: Patient/Resident/Age nt refused - education provided ) 08 (Given - Provider: Teresita Hirsch RN) 102 (Not Given - Provider: Kym Wilson RN - Reason: Other) metoprolol succinate (TOPROL-XL) 24 Hour tablet 100 mg 100 mg, oral, 2 times daily, First dose on Sun01/03/22 at 2100, Regarding Beta-Blockers - hold if SBP < 100 or HR < 55 Do not crush or chew. 0834 (Given - Provider: Teresita Hirsch RN)2122 (Not Given - Provider: Richard Hernandez RN - Reason: Other - Comment: blood pressures low during the day) 08 (Given - Provider: Teresita Hirsch RN)2041 (Given - Provider: Richard Hernandez, AIDAN) 102 (Not Given - Provider: Kym Wilson RN - Reason: Order parameters not met) polyethylene glycol (MIRALAX) packet 17 g 17 g, oral, Nightly, First dose on Sun01/03/22 at 2100 2122 (Not Given - Provider: Richard Hernandez RN - Reason: Patient/Resident/Age nt refused - education provided ) 2044 (Not Given - Provider: Richard Hernandez RN - Reason: Patient/Resident/Ag ent refused - education provided ) potassium chloride (KLOR-CON) CR tablet 10 mEq 10 mEq, oral, 2 times daily, First dose on Sun01/04/22 at 0900, Tablet may be swallowed whole (do not crush/chew/suck on) OR broken in half and each half swallowed separately OR dissolved (whole tablet) in ~4 ounces of water (allow ~2 minutes to dissolve, stir well and administer immediately). 0835 (Given - Provider: Teresita Hirsch RN)2119 (Given - Provider: Richard Hernandez RN) 0845 (Given - Provider: Teresita Hirsch RN)2041 (Given - Provider: Richard Hernandez, AIDAN) 1017 (Given - Provider: Kym Wilson RN) senna (SENOKOT) tablet 8.6 mg 8.6 mg (1 tablet), oral, 2 times daily, First dose on Sun01/03/22 at 2100 0834 (Given - Provider: Teresita Hirsch RN)2119 (Given - Provider: Richard Hernandez RN) 08 (Given - Provider: Teresita Hirsch RN)2041 (Given - Provider: Richard Hernandez RN) 1023 (Not Given - Provider: Kym Wilson RN - Reason: Other) sodium chloride 0.9 % bolus 500 mL 500 mL, intravenous, at 250 mL/hr, Administer over 2 Hours, Once, On Sun01/06/22 at 0830, For 1 dose 0830 (Canceled Entry - Provider: Automatic Discharge Provider - Comment: Automatically canceled at discontinue of medication order) temazepam (RESTORIL) capsule 30 mg 30 mg, oral, Nightly, First dose on Sun01/03/22 at 2100, HAZARDOUS Drug Precautions - Low Risk (Category A/NIOSH Group 3) Reproductive Risk Only: - Single pair of ASTM standard D6978 certified chemotherapy gloves - Eye protection (goggles or face shield) required only with a potential for facial contact (i.e. concern for spitting or vomiting of the dose during or after administration) - Staff at reproductive risk (actively trying to conceive, or may be become , and ): chemo certified gown and an N95 respirator required when crushing meds (crushing of tabs allowed only in closed pouches) or opening of capsules only for allowable dosage forms 2119 (Given - Provider: Richard Hernandez RN) 2040 (Given - Provider: Richard Hernandez RN) venlafaxine XR (EFFEXOR-XR) 24 hr capsule 150 mg 150 mg, oral, Daily, First dose on Sun01/04/22 at 0900, Capsule may be swallowed whole, or may be opened and its contents sprinkled on applesauce if consumed immediately without chewing. Do not crush or chew. 0834 (Given - Provider: Teresita Hirsch RN) 0847 (Given - Provider: Teresita Hirsch RN) 1017 (Given - Provider: Kym Wilson RN) venlafaxine XR (EFFEXOR-XR) 24 hr capsule 75 mg 75 mg, oral, Daily, First dose on Sun01/04/22 at 0900, Capsule may be swallowed whole, or may be opened and its contents sprinkled on applesauce if consumed immediately without chewing. Do not crush or chew. 0837 (Given - Provider: Teresita Hirsch RN) 0843 (Given - Provider: Teresita Hirsch RN) 0900 (Canceled Entry - Provider: Automatic Discharge Provider - Comment: Automatically canceled at discontinue of medication order) warfarin (COUMADIN) tablet 3 mg 3 mg, oral, User Specified - warfarin ONLY at 1700 (Daily), First dose on Sun01/03/22 at 1700, Daily in the evening HAZARDOUS Drug Precautions - Low Risk (Category A/NIOSH Group 3) Reproductive Risk Only: - Single pair of ASTM standard D6978 certified chemotherapy gloves - Eye protection (goggles or face shield) required only with a potential for facial contact (i.e. concern for spitting or vomiting of the dose during or after administration) - Staff at reproductive risk (actively trying to conceive, or may be become , and ): chemo certified gown and an N95 respirator required when crushing meds (crushing of tabs allowed only in closed pouches) or opening of capsules only for allowable dosage forms. IF RECEIVING ENTERAL NUTRITION: Hold tube feeds at least 1 hour before and 1 hour after administration of warfarin. , Indication for use of Warfarin: VTE Prophylaxis (INR Target: 2-3) 1615 (Given - Provider: Teresita Hirsch RN) 1643 (Given - Provider: Teresita Hirsch RN) PRN Medication Order 01/04/2022 01/05/2022 01/06/2022 acetaminophen (TYLENOL) tablet 650 mg 650 mg, oral, Every 6 hours PRN, mild pain, fever, Starting on Sun01/03/22 at 1248 albuterol 2.5 mg /3 mL (0.083 %) nebulizer solution 2.5 mg 2.5 mg, nebulization, Every 6 hours PRN, wheezing, Starting on Sun01/03/22 at 1248 aluminum-magnesium hydroxide-simethicone (MAALOX) 200-200-20 mg/5 mL suspension 30 mL 30 mL, oral, 4 times daily PRN, indigestion, heartburn, Starting on Sun01/03/22 at 1248 bethanechol (URECHOLINE) tablet 25 mg 25 mg, oral, 3 times daily PRN, bladder spasms, or Urinary Retention, Starting on Sun01/03/22 at 1248 bisacodyL (DULCOLAX) suppository 10 mg 10 mg, rectal, Daily PRN, constipation, If patient not passing flatus or feeling constipated, Starting on Sun01/03/22 at 1248 cloNIDine (CATAPRES) tablet 0.1 mg 0.1 mg, oral, Every 6 hours PRN, high blood pressure, For SBP > 180 or DBP > 100, Starting on Sun01/03/22 at 1248 cyclobenzaprine (FLEXERIL) tablet 10 mg 10 mg, oral, 3 times daily PRN, muscle spasms, Starting on Sun01/03/22 at 1248 0015 (Given - Provider: Lelo Hagen RN)0923 (Given - Provider: Fiona Allen RN)1615 (Given - Provider: Teresita Hirsch RN) 1158 (Given - Provider: Teresita Hirsch RN)1851 (Given - Provider: Marsha Nixon RN) diphenhydrAMINE (BENADRYL) capsule 25 mg 25 mg, oral, Every 4 hours PRN, itching, Starting on Sun01/03/22 at 1248 HYDROmorphone (DILAUDID) injection 1 mg (CANCELED) 1 mg, intravenous, Every 2 hours PRN, severe pain, For severe breakthrough pain if oral pain medication not effective, Starting on Sun01/04/22 at 0026 0420 (Given - Provider: Lelo Hagen RN)1054 (Given - Provider: Teresita Hirsch RN)1939 (Given - Provider: Teresita Hirsch RN) 0611 (Given - Provider: Richard Hernandez RN) naloxone (NARCAN) injection 0.4 mg 0.4 mg, intravenous, Once as needed, opioid reversal, Starting on Sun01/03/22 at 1248, For 1 dose ondansetron (PF) (ZOFRAN) injection 4 mg 4 mg, intravenous, Every 6 hours PRN, nausea, vomiting, Starting on Sun01/03/22 at 1248 oxyCODONE (ROXICODONE) immediate release tablet 10 mg(Linked Group 1) 10 mg, oral, Every 4 hours PRN, severe pain, Starting on Sun01/06/22 at 0809 1019 (Given - Provider: Kym Wilson RN) oxyCODONE (ROXICODONE) immediate release tablet 20 mg (CANCELED) 20 mg, oral, Every 4 hours PRN, severe pain, Starting on Sun01/04/22 at 0027 0147 (Given - Provider: Lelo Hagen RN)0537 (Given - Provider: Lelo Hagen RN)0923 (Given - Provider: Fiona Allen RN)1336 (Given - Provider: Teresita Hirsch RN)1721 (Given - Provider: Teresita Hirsch RN)2120 (Given - Provider: Richard Hernandez RN) 0343 (Given - Provider: Richard Hernandez, AIDAN)0847 (Given - Provider: Teresita Hirsch RN)1250 (Given - Provider: Teresita Hirsch RN)1643 (Given - Provider: Teresita Hirsch RN)2041 (Given - Provider: Richard Hernandez, AIDAN) 0425 (Given - Provider: Richard Hernandez, AIDAN) oxyCODONE (ROXICODONE) immediate release tablet 5 mg(Linked Group 1) 5 mg, oral, Every 4 hours PRN, moderate pain, Starting on Sun01/06/22 at 0809 1019 (See Alternativ e - Provider: Kym Wilson RN) Oxygen Therapy, Adult inhalation, As needed, shortness of breath, Titrate 2 - 4 L/min to keep Oxygen Sat > 90% ; Contact if patient requiring > 4L/min, Starting on Sun01/03/22 at 1248, Device: Nasal Cannula, Rate in liters per minute: 2 lpm, Keep O2 Sat Above: 90% promethazine (PHENERGAN) suppository 25 mg 25 mg, rectal, Every 6 hours PRN, nausea, vomiting, Starting on Sun01/03/22 at 1248, For use if unable to tolerate PO and IV Zofran and PO Phenergan ineffective promethazine (PHENERGAN) tablet 25 mg 25 mg, oral, Every 6 hours PRN, nausea, vomiting, Starting on Sun01/03/22 at 1248, For use if IV Zofran ineffective or patient has no IV access Linked Groups Order Group 1: oxyCODONE (ROXICODONE) immediate release tablet 5 mgJump to med 5 mg, oral, Every 4 hours PRN, moderate pain, Starting on Sun01/06/22 at 0809 Or oxyCODONE (ROXICODONE) immediate release tablet 10 mgJump to med 10 mg, oral, Every 4 hours PRN, severe pain, Starting on Sun01/06/22 at 0809 Scheduled Medication Order 04/20/2022 04/21/2022 04/22/2022 acetaminophen (TYLENOL) tablet 1,000 mg 1,000 mg, oral, 3 times daily, First dose on Yvette 04/20/22 at 2100 2024 (Given - Provider: Richard Hernandez RN) 0847 (Given - Provider: Marsha Nixon RN)1302 (Given - Provider: Marsha Nixon RN)2041 (Given - Provider: Fadumo Pittman RN) 0846 (Given - Provider: Tracy Agudelo RN)1400 (Canceled Entry - Provider: Automatic Discharge Provider - Comment: Automatically canceled at discontinue of medication order) clindamycin (CLEOCIN) 900 mg/50 mL IVPB 900 mg (COMPLETED) 900 mg, intravenous, at 50 mL/hr, Administer over 60 Minutes, Once, On Yvette 04/20/22 at 1230, For 1 dose, Preprocedure, Administer within 60 minutes of incision premix bag, Indication: Prophylaxis-Surgical 1350 (Given - Provider: JAMES Brown) clindamycin (CLEOCIN) 900 mg/50 mL IVPB 900 mg (COMPLETED) 900 mg, intravenous, at 50 mL/hr, Administer over 60 Minutes, Every 8 hours, First dose on Yvette 04/20/22 at 2200, For 2 doses, Recovery & On Unit, premix bag, Indication: Prophylaxis-Surgical 2206 (New Bag - Provider: Richard Hernandez, AIDAN) 0516 (New Bag - Provider: Richard Hernandez RN) clindamycin (CLEOCIN) capsule 300 mg 300 mg, oral, Every 12 hours, First dose on Sun04/21/22 at 2100, For 10 days, Indication: Prophylaxis-Surgical 2040 (Given - Provider: Fadumo Pittman RN) 0847 (Given - Provider: Tracy Agudelo RN) dexamethasone (DECADRON) injection 10 mg (COMPLETED) 10 mg, intravenous, Once, On Yvette 04/20/22 at 1230, For 1 dose, Preprocedure 1330 (Given - Provider: Dwaine Arcos [facility]) diazePAM (VALIUM) tablet 2.5 mg 2.5 mg, oral, 2 times daily, First dose on Sun04/20/22 at 2100 220 (Given - Provider: Richard Hernandez RN) 0846 (Given - Provider: Marsha Nixon RN)2039 (Given - Provider: Fadumo Pittman RN) 0847 (Given - Provider: Tracy Agudelo RN) enoxaparin (LOVENOX) injection 40 mg 40 mg, subcutaneous, Daily, First dose (after last modification) on Sun04/21/22 at 1330, For 7 doses, Indication: VTE/PE Prophylaxis 1418 (Given - Provider: Marsha Nixon RN) 0852 (Given - Provider: Tracy Agudelo RN) gabapentin (NEURONTIN) tablet 1,200 mg 1,200 mg, oral, Nightly, First dose on Yvette 04/20/22 at 2100 202 (Given - Provider: Richard Hernandez, AIDAN) 2039 (Given - Provider: Fadumo Pittman RN) gabapentin (NEURONTIN) tablet 600 mg 600 mg, oral, Daily, First dose (after last modification) on Sun04/21/22 at 0900 0846 (Given - Provider: Marsha Nixon RN) 0847 (Given - Provider: Tracy Agudelo RN) isosorbide mononitrate (IMDUR) 24 hr tablet 60 mg 60 mg, oral, Daily, First dose on Sun04/21/22 at 0900, Do not crush or chew. 0846 (Given - Provider: Marsha Nixon RN) 0848 (Given - Provider: Tracy Agudelo RN) lactated Ringer's infusion (COMPLETED) 100 mL/hr, intravenous, Once, On Sun04/20/22 at 1230, For 1 dose, Preprocedure 1242 (New Bag - Provider: Lynnette Hodges RN) metoprolol succinate (TOPROL-XL) 24 Hour tablet 100 mg 100 mg, oral, 2 times daily, First dose on Sun04/20/22 at 2100, Do not crush or chew. 2136 (Not Given - Provider: Richard Hernandez RN - Reason: Contraindicated) 0846 (Given - Provider: Marsha Nixon RN)2046 (Given - Provider: Fadumo Pittman RN) 0848 (Given - Provider: Tracy Agudelo RN) polyethylene glycol (MIRALAX) packet 17 g 17 g, oral, Daily, First dose on Sun04/20/22 at 2000 2106 (Not Given - Provider: Richard Hernandez RN - Reason: Patient/Resident/Ag ent refused - education provided ) 0857 (Not Given - Provider: Marsha Nixon RN - Reason: Patient/Resident/Agent refused - education provided ) 0851 (Given - Provider: Tracy Agudelo RN) potassium chloride (KLOR-CON) CR tablet 10 mEq 10 mEq, oral, 2 times daily, First dose on Sun04/20/22 at 2100, Tablet may be swallowed whole (do not crush/chew/suck on) OR broken in half and each half swallowed separately OR dissolved (whole tablet) in ~4 ounces of water (allow ~2 minutes to dissolve, stir well and administer immediately). 2024 (Given - Provider: Richard Hernandez RN) 0847 (Given - Provider: Marsha Nixon RN)2040 (Given - Provider: Fadumo Pittman RN) 0847 (Given - Provider: Tracy Agudelo RN) senna-docusate (PERICOLACE) 8.6-50 mg per tablet 1 tablet 1 tablet, oral, 2 times daily, First dose on Yvette 04/20/22 at 2100 2024 (Given - Provider: Richard Hernandez, AIDAN) 0846 (Given - Provider: Marsha Nixon RN)2041 (Given - Provider: Fadumo Pittman RN) 0847 (Given - Provider: Tracy Agudelo, AIDAN) sodium chloride 0.9 % flush 10 mL(Linked Group 1) 10 mL, intravenous, 2 times daily, First dose on Yvette 04/20/22 at 2100, Recovery & On Unit 2136 (Not Given - Provider: Richard Hernandez RN - Reason: Other - Comment: fluids running) 0900 (Canceled Entry - Provider: Automatic Discharge Provider - Comment: Automatically canceled at discontinue of medication order)2045 (Given - Provider: Fadumo Pittman RN) 0852 (Given - Provider: Tracy Agudelo RN) sucralfate (CARAFATE) tablet 1 g 1 g, oral, 4 times daily before meals and nightly, First dose on Sun04/20/22 at 2200 2209 (Given - Provider: Richard Hernandez RN) 0630 (Given - Provider: Richard Hernandez, AIDAN)1101 (Given - Provider: Marsha Nixon RN)1624 (Given - Provider: Marsha Nixon RN)2046 (Given - Provider: Fadumo Pittman RN) 0644 (Given - Provider: Fadumo Pittman RN)1130 (Canceled Entry - Provider: Automatic Discharge Provider - Comment: Automatically canceled at discontinue of medication order) temazepam (RESTORIL) capsule 30 mg 30 mg, oral, Nightly, First dose on Sun04/20/22 at 2100, HAZARDOUS Drug Precautions - Low Risk (Category A/NIOSH Group 3) Reproductive Risk Only: - Single pair of ASTM standard D6978 certified chemotherapy gloves - Eye protection (goggles or face shield) required only with a potential for facial contact (i.e. concern for spitting or vomiting of the dose during or after administration) - Staff at reproductive risk (actively trying to conceive, or may be become , and ): chemo certified gown and an N95 respirator required when crushing meds (crushing of tabs allowed only in closed pouches) or opening of capsules only for allowable dosage forms 2024 (Given - Provider: Richard Hernandez RN) 2039 (Given - Provider: Fadumo Pittman RN) tranexamic acid (CYKLOKAPRON) injection 1,000 mg (COMPLETED) 1,000 mg, intravenous, Administer over 10 Minutes, Once, On Yvette 04/20/22 at 1230, For 1 dose, Preprocedure, Not to exceed 100 mg (1 mL) per minute., Tranexamic Acid Indication: Surgical Prophylaxis: Orthopedic 1330 (Given - Provider: JAMES Brown) venlafaxine XR (EFFEXOR-XR) 24 hr capsule 150 mg 150 mg, oral, Daily, First dose on Sun04/21/22 at 0900, Capsule may be swallowed whole, or may be opened and its contents sprinkled on applesauce if consumed immediately without chewing. Do not crush or chew. 0848 (Given - Provider: Marsha Nixon RN) 0847 (Given - Provider: Tracy Agudelo RN) venlafaxine XR (EFFEXOR-XR) 24 hr capsule 75 mg 75 mg, oral, Daily, First dose on Sun04/21/22 at 0900, Capsule may be swallowed whole, or may be opened and its contents sprinkled on applesauce if consumed immediately without chewing. Do not crush or chew. 0847 (Given - Provider: Marsha Nixon RN) 0853 (Given - Provider: Tracy Agudelo RN) warfarin (COUMADIN) tablet 3 mg 3 mg, oral, User Specified - warfarin ONLY at 1700 (Daily), First dose (after last modification) on Sun04/21/22 at 1700, HAZARDOUS Drug Precautions - Low Risk (Category A/NIOSH Group 3) Reproductive Risk Only: - Single pair of ASTM standard D6978 certified chemotherapy gloves - Eye protection (goggles or face shield) required only with a potential for facial contact (i.e. concern for spitting or vomiting of the dose during or after administration) - Staff at reproductive risk (actively trying to conceive, or may be become , and ): chemo certified gown and an N95 respirator required when crushing meds (crushing of tabs allowed only in closed pouches) or opening of capsules only for allowable dosage forms. IF RECEIVING ENTERAL NUTRITION: Hold tube feeds at least 1 hour before and 1 hour after administration of warfarin. , Indication for use of Warfarin: Other (Enter Indication & INR Target), Enter Indication and INR Target: (free text): h/o DVTs 1624 (Given - Provider: Marsha Nixon, AIDAN) Continuous Medication Order 04/20/2022 04/21/2022 04/22/2022 lactated Ringer's infusion 100 mL/hr, intravenous, Continuous, Starting on Yvette 04/20/22 at 1715 1706 (New Bag - Provider: Meghan Muller, AIDAN) 2154 (New Bag - Provider: Fadumo Pittman RN) Oxygen Therapy, Adult inhalation, Continuous, Starting on Yvette 04/20/22 at 1715, Titrate 1 lpm - 4 lpm to keep SpO2 above 90%. If flow is increased above 4 lpm, please contact the physician., Device: Nasal Cannula, Keep O2 Sat Above: 90% 1715 (Canceled Entry - Provider: Automatic Discharge Provider - Comment: Automatically canceled at discontinue of medication order) PRN Medication Order 04/20/2022 04/21/2022 04/22/2022 acetaminophen (TYLENOL) tablet 325 mg 325 mg, oral, Every 6 hours PRN, mild pain, headaches, fever, Starting on Yvette 04/20/22 at 1652 albuterol 2.5 mg /3 mL (0.083 %) nebulizer solution 2.5 mg 2.5 mg, nebulization, Every 4 hours PRN, wheezing, Starting on Yvette 04/20/22 at 1652 aluminum-magnesium hydroxide-simethicone (MAALOX) 200-200-20 mg/5 mL suspension 30 mL 30 mL, oral, 4 times daily PRN, indigestion, heartburn, Starting on Yvette 04/20/22 at 1652 bethanechol (URECHOLINE) tablet 25 mg 25 mg, oral, 3 times daily PRN, As needed for urinary retention or PVR greater than 400 cc, Starting on Yvette 04/20/22 at 1652 bisacodyL (DULCOLAX) suppository 10 mg 10 mg, rectal, Daily PRN, constipation, If magnesium hydroxide ineffective, Starting on Yvette 04/20/22 at 1652 cloNIDine (CATAPRES) tablet 0.1 mg 0.1 mg, oral, Every 8 hours PRN, high blood pressure, for SBP more than 170 or DBP more than 105, Starting on Yvette 04/20/22 at 1652 cyclobenzaprine (FLEXERIL) tablet 5 mg 5 mg, oral, 3 times daily PRN, muscle spasms, Starting on Yvette 04/20/22 at 1652 0516 (Given - Provider: Richard Hernandez RN)1302 (Given - Provider: Marsha Nixon RN) 0054 (Given - Provider: Fadumo Pittman, AIDAN) diphenhydrAMINE (BENADRYL) injection 25 mg 25 mg, intravenous, Every 6 hours PRN, itching, Starting on Yvette 04/20/22 at 1652 EPINEPHrine (ADRENALIN) injection (CANCELED) As needed, Starting on Yvette 04/20/22 at 1448, Intraprocedure 1448 (Given - Provider: VALARIE Brito) HYDROmorphone (DILAUDID) injection 0.5 mg (CANCELED) 0.5 mg, intravenous, Every 5 min PRN, severe pain, Starting on Yvette 04/20/22 at 1510, For 6 doses, Recovery (only), 1st line for severe pain 1544 (Given - Provider: Whitley Kelley)1559 (Given - Provider: Whitley Kelley)1608 (Given - Provider: Whitley Kelley) HYDROmorphone (DILAUDID) injection 0.5 mg 0.5 mg, intravenous, Every 2 hours PRN, severe pain, For severe breakthrough pain not relieved with oral pain medication, Starting on Yvette 04/20/22 at 1652 0743 (Given - Provider: Marsha Nixon RN)1101 (Given - Provider: Marsha Nixon RN)2047 (Given - Provider: Fadumo Pittman RN) 0325 (Given - Provider: Fadumo Pittman RN) magnesium hydroxide (MILK OF MAGNESIA) 400 mg/5 mL suspension 30 mL 30 mL, oral, 2 times daily PRN, constipation, Starting on Yvette 04/20/22 at 1652, Follow dose with 8 oz of water. naloxone (NARCAN) injection 0.4 mg 0.4 mg, intravenous, Once as needed, opioid reversal, respiratory depression, Starting on Yvette 04/20/22 at 1652, For 1 dose ondansetron (PF) (ZOFRAN) injection 4 mg (CANCELED) 4 mg, intravenous, Every 8 hours PRN, vomiting, nausea, Starting on Yvette 04/20/22 at 1510, Recovery (only), -ONLY give IV if patient is unable to take orally. -If inadequate response within 30 minutes, proceed to next-line agent or contact provider if no further options ordered. 1536 (Given - Provider: Whitley Kelley) ondansetron (PF) (ZOFRAN) injection 4 mg 4 mg, intravenous, Every 6 hours PRN, nausea, vomiting, Starting on Yvette 04/20/22 at 1652 2041 (Given - Provider: Fadumo Pittman RN) ondansetron ODT (ZOFRAN-ODT) disintegrating tablet 4 mg 4 mg, oral, Every 8 hours PRN, vomiting, nausea, Starting on Yvette 04/20/22 at 1652, Recovery & On Unit, -Give IV if patient is unable to take orally. -If inadequate response within 30 minutes, proceed to next-line agent or contact provider if no further options ordered. For ODT tablets: -Do not remove from blister pack until just before administering. -Patient should allow tablet to dissolve on tongue. oxyCODONE (ROXICODONE) immediate release tablet 10 mg (CANCELED) 10 mg, oral, Every 4 hours PRN, severe pain, Starting on Yvette 04/20/22 at 1652 2026 (Given - Provider: Richard Hernandez, AIDAN) 0239 (Given - Provider: Richard Hernandez, RN)0629 (Given - Provider: Richard Hernandez, AIDAN)1011 (Given - Provider: Marsha Nixon RN) oxyCODONE (ROXICODONE) immediate release tablet 10 mg (COMPLETED) 10 mg, oral, Once as needed, severe pain, Starting on Yvette 04/20/22 at 1615, For 1 dose, Recovery (only) 1619 (Given for Pain - Provider: Whitley Kelley) oxyCODONE (ROXICODONE) immediate release tablet 10 mg(Linked Group 2) 10 mg, oral, Every 4 hours PRN, moderate pain, Starting on Sun04/21/22 at 1355 1418 (See Alternative - Provider: Marsha Nixon RN)1802 (See Alternative - Provider: Marsha Nixon RN)2155 (See Alternative - Provider: Fadumo Pittman RN) 0134 (See Alternative - Provider: Fadumo Pittman RN)0644 (See Alternative - Provider: Fadumo Pittman RN)1045 (See Alternative - Provider: Tracy Agudelo RN) oxyCODONE (ROXICODONE) immediate release tablet 20 mg(Linked Group 2) 20 mg, oral, Every 4 hours PRN, severe pain, Starting on Sun04/21/22 at 1355 1418 (Given - Provider: Marsha Nixon RN)1802 (Given - Provider: Marsha Nixon RN)2155 (Given - Provider: Fadumo Pittman RN) 0134 (Given - Provider: Fadumo Pittman RN)0644 (Given - Provider: Fadumo Pittman RN)1045 (Given - Provider: Tracy Agudelo RN) promethazine (PHENERGAN) suppository 25 mg 25 mg, rectal, Every 6 hours PRN, nausea, vomiting, Starting on Yvette 04/20/22 at 1652, For use if unable to tolerate p.o. Phenergan and IV Zofran ineffective promethazine (PHENERGAN) tablet 12.5 mg 12.5 mg, oral, Every 6 hours PRN, nausea, vomiting, Starting on Yvette 04/20/22 at 1652, For use if IV Zofran ineffective or no IV access. 1305 (Given - Provider: Marsha Nixon RN) ropivacaine (NAROPIN) 0.5 % injection (CANCELED) As needed, Starting on Yvette 04/20/22 at 1448, Intraprocedure 1448 (Given - Provider: VALARIE Brito) sodium chloride 0.9 % flush 10 mL(Linked Group 1) 10 mL, intravenous, As needed, line care, Starting on Yvette 04/20/22 at 1652, Recovery & On Unit sodium chloride 0.9 % irrigation solution (CANCELED) As needed, Starting on Yvette 04/20/22 at 1449, Intraprocedure 1449 (Given - Provider: VALARIE Brito) traZODone (DESYREL) tablet 50 mg 50 mg, oral, Nightly PRN, sleep, Starting on Yvette 04/20/22 at 1652 Linked Groups Order Group 1: Insert peripheral IV (CANCELED) STAT, Once, On Yvette 04/20/22 at 1653, For 1 occurrence
Recovery & On Unit And Maintain IV access (CANCELED) Until discontinued, Starting on Yvette 04/20/22 at 1653, Until Specified
Recovery & On Unit And Saline lock IV (CANCELED) Routine, Once, On Yvette 04/20/22 at 1653, For 1 occurrence
When tolerating PO fluids, Recovery & On Unit And sodium chloride 0.9 % flush 10 mLJump to med 10 mL, intravenous, 2 times daily, First dose on Yvette 04/20/22 at 2100, Recovery & On Unit And sodium chloride 0.9 % flush 10 mLJump to med 10 mL, intravenous, As needed, line care, Starting on Yvette 04/20/22 at 1652, Recovery & On Unit Group 2: oxyCODONE (ROXICODONE) immediate release tablet 10 mgJump to med 10 mg, oral, Every 4 hours PRN, moderate pain, Starting on Sun04/21/22 at 1355 Or oxyCODONE (ROXICODONE) immediate release tablet 20 mgJump to med 20 mg, oral, Every 4 hours PRN, severe pain, Starting on Sun04/21/22 at 1355 Care Teams (unrecognized sec tion and content) [employer] Relationship Specialty Start Date End Date Levi Shine MD [address] [place] [address] PCP - General 11/22/20 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 This clinical summary was aggregated from multiple sources. Caution should be exercised in using it in the provision of clinical care. This summary normalizes information from multiple sources, and as a consequence, information in this document may materially change the coding, format and clinical context of patient data. In addition, data may be omitted in some cases. CLINICAL DECISIONS SHOULD BE BASED ON THE PRIMARY CLINICAL RECORDS. [facility] provides no warranty or guarantee of the accuracy or completeness of information in this document.
--- NOTE | 2023-04-02 15:14 | XR_ITS ---
The [address] [address] Patient Name: GABRIELA GODINEZ MRN: [id number] date: 1955 Sex: F Assigned Patient Location: ER Current Patient Location: ER Accession/Order Number: [id number] Exam Date: 04/02/2023 15:15 Report Date: 04/02/2023 16:07 At the request of: CHAN ROQUE Procedure: XR ribs LT min 3V w CXR1V EXAM: XR ribs LT min 3V w CXR1V INDICATION: injury to left chest, c/o left rib pain. COMPARISON: Left wrist radiograph 09/25/2022. TECHNIQUE: Left rib series with frontal view of the chest FINDINGS: No acute displaced rib fracture identified. Old left-sided rib fractures. No osseous lytic or blastic lesion. Normal cardiomediastinal contours. No focal consolidation. Stable linear atelectasis versus scarring in the left midlung. No pleural effusion or pneumothorax. XR/XR ribs LT min 3V w CXR1V IMPRESSION: 1. No acute left rib fracture identified. 2. No acute cardiopulmonary process. Electronically authenticated by: SALVADOR POTTS Date: 04/02/2023 16:07
--- NOTE | 2023-04-02 15:40 | ED_ITS ---
HPI - Back Pain/Injury General Chief Complaint: Chest Pain Stated Complaint: GENERAL WEAKNESS/ RIB PAIN/ FALL Time Seen by Provider: 04/02/23 15:40 Source: patient Mode of arrival: Wheelchair History of Present Illness HPI Narrative: patient's here with severe pain in her left lateral chest wall. She states couple days she just lost oc balance and leaned into a door frame at home. She's had previous fractures on the left side approximately one year ago. This happened two days ago but she can't handle the pain anymore. She did not hit her head or neck. She has no abdominal discomfort. She does have a history of pulmonary disease. She says she's it's hard for her to take deep breaths. Her vital signs here are stable she has a pulse ox ninety-four percent on room air. Respiratory rate is eighteen. Related Data Home Medications Medication Instructions Recorded Confirmed albuterol sulfate 90 mcg/actuation 2 inh inhalation Q6H PRN shortness 09/26/22 09/26/22 aerosol inhaler of breath or wheezing cetirizine 10 mg tablet 10 mg PO DAILY 09/26/22 09/26/22 fluticasone furoate 100 1 inh inhalation Q24H 09/26/22 09/26/22 mcg-vilanterol 25 mcg/dose inhalation powder (Breo Ellipta) gabapentin 600 mg tablet 1,200 mg PO .qhs 09/26/22 09/26/22 isosorbide mononitrate 60 mg 60 mg PO .q24 09/26/22 09/26/22 tablet,extended release 24 hr levofloxacin 750 mg tablet 750 mg PO Q24H 09/26/22 09/26/22 metoclopramide HCl 10 mg tablet 10 mg PO .COMPLEX 09/26/22 09/26/22 metoprolol succinate 100 mg 100 mg PO Q12H 09/26/22 09/26/22 tablet,extended release 24 hr ondansetron 4 mg disintegrating 4 mg translingual Q6H PRN nausea 09/26/22 09/26/22 tablet and vomiting pantoprazole 40 mg tablet,delayed 40 mg PO DAILY 09/26/22 09/26/22 release potassium chloride 10 mEq 10 meq PO BID 09/26/22 09/26/22 tablet,extended release(part/cryst) prednisone 20 mg tablet 20 mg PO .q8 09/26/22 09/26/22 promethazine 25 mg tablet 25 mg PO Q4H PRN nausea and 09/26/22 09/26/22 vomiting quetiapine 50 mg tablet 50 mg PO .qhs 09/26/22 09/26/22 tizanidine 4 mg tablet 4 mg PO Q12H PRN muscle spasticity 09/26/22 09/26/22 tramadol 50 mg tablet 50 mg PO Q8H PRN pain 09/26/22 09/26/22 Allergies Allergy/AdvReac Type Severity Reaction Status Date / Time NSAIDS (Non-Steroidal Allergy Severe Anaphylaxis Verified 09/26/22 20:11 Anti-Inflamma vancomycin Allergy Verified 09/26/22 20:11 morphine AdvReac Intermediate Verified 04/02/23 14:55 PFSH PFSH Social History Smoking status: Current some day smoker Exam Narrative Exam Narrative: awake alert pleasant clearly is uncomfortable with movement. She has good breath sounds bilaterally. Oximetry is normal. There is no subcutaneous cancer emphysema. There is no evidence of bruises contusions or hematoma. She says she has a palpable discomfort when she takes a deep breath she can feel her ribs and she heard a crack when she did the injury a couple days ago. Heart rate and rhythm are stable. X-rays were ordered and are pending at the time of this note Constitutional Vital Signs, click to edit/add: Last Vital Signs Temp 98.3 F 04/02/23 14:55 Pulse 61 04/02/23 14:55 Resp 18 04/02/23 14:55 BP 110/89 04/02/23 14:55 Pulse Ox 94 L 04/02/23 14:55 O2 Del Method Room Air 04/02/23 14:55 Course Vital Signs Vital signs: Vital Signs Temperature 98.3 F 04/02/23 14:55 Pulse Rate 61 04/02/23 14:55 Respiratory Rate 18 04/02/23 14:55 Blood Pressure 110/89 04/02/23 14:55 Pulse Oximetry 94 L 04/02/23 14:55 Oxygen Delivery Method Room Air 04/02/23 14:55 Temperature 98.3 F 04/02/23 14:55 Pulse Rate 61 04/02/23 14:55 Respiratory Rate 18 04/02/23 14:55 Blood Pressure 110/89 04/02/23 14:55 Pulse Oximetry 94 L 04/02/23 14:55 Oxygen Delivery Method Room Air 04/02/23 14:55 MDM - Back Pain/Injury MDM Narrative Medical decision making narrative: radiologist does not see any acute fracture. She may have a nondisplaced nonvisualized fracture today so I will treat her accordingly. Discharge Plan Discharge Chief Complaint: Chest Pain Clinical Impression: Contusion of left chest wall Patient Disposition: Home, Self-Care Time of Disposition Decision: 16:26 Prescriptions / Home Meds: No Action albuterol sulfate 90 mcg/actuation HFA aerosol inhaler 2 inh INHALATION Q6H PRN (Reason: shortness of breath or wheezing) cetirizine 10 mg tablet 10 mg PO DAILY fluticasone furoate-vilanterol [Breo Ellipta] 100-25 mcg/dose blister with device 1 inh INHALATION Q24H gabapentin 600 mg tablet 1,200 mg PO .qhs isosorbide mononitrate 60 mg tablet extended release 24 hr 60 mg PO .q24 levofloxacin 750 mg tablet 750 mg PO Q24H metoprolol succinate 100 mg tablet extended release 24 hr 100 mg PO Q12H metoclopramide HCl 10 mg tablet 10 mg PO .COMPLEX Rx Instructions: 10 mg orally before meals at at bedtime; ondansetron 4 mg tablet,disintegrating 4 mg translingual Q6H PRN (Reason: nausea and vomiting) pantoprazole 40 mg tablet,delayed release (DR/EC) 40 mg PO DAILY potassium chloride 10 mEq tablet,ER particles/crystals 10 meq PO BID prednisone 20 mg tablet 20 mg PO .q8 promethazine 25 mg tablet 25 mg PO Q4H PRN (Reason: nausea and vomiting) Patient Comments: x 14 days quetiapine 50 mg tablet 50 mg PO .qhs tizanidine 4 mg tablet 4 mg PO Q12H PRN (Reason: muscle spasticity) tramadol 50 mg tablet 50 mg PO Q8H PRN (Reason: pain) Additional Instructions: [place] or plain Tylenol Stand Alone Forms: Portal Instructions Referrals: Bill Sanderson MD [Primary Care Provider] - 1 week
[2023-04-02] MEDS: HYDROCODONE/ACET 5-325 MG TABLET 2 TAB PO (17:05)
== END 2023-04-02 17:05 | disposition home or self-care (01) ==
PROVIDERS: Emergency Provider Emergency Medicine Emergency Medical Services; PCP Family Medicine
DX: S20.212A Contusion of left front wall of thorax, initial encounter (principal); W19.XXXA Unspecified fall, initial encounter; Z79.899 Other long term (current) drug therapy; F17.210 Nicotine dependence, cigarettes, uncomplicated
CPT/HCPCS: 71101; 99283

== ENCOUNTER 2023-04-26 12:09 | Outpatient (OUT) | payer MEDICARE, OTHER, SELFPAY ==
--- OUTSIDE RECORDS SUMMARY | 2023-04-26 12:15 | XMS_ITS | CCD ---
Author Name Unknown Address [address] [place] [address] Organization [facility] Care Team Providers Care Art Critic Name Role Phone CALOS SMITH JR. Referring [...] Provider Levi Shine MD Primary Care Provider RL .DR SIMS Attending Unavailable HOY ., DR SIMS [...] Unavailable HOY ., DR SIMS Admitting Unavailable VALARIE STERN Consulting UnavailABDIAS Bello Consulting Unavailable GRADY CARDENAS [...] Consulting Unavailable DIAB ., ARIANNA Consulting Unavailable LIDIA HOWELLERY D Consulting Unavailable JACKY HOWELL Attending Unavailable HOY ., DR SIMS Primary Care Unavailable JACKY HOWELL Admitting Unavailable HOY ., DR SIMS Primary Care Unavailable MISC, DR OSCAR Admitting Unavailable MISC, DR OSCAR Attending Unavailable FAWWAMike, ANGELO H Admitting Unavailable FAWWAD, ANGELO H Attending Unavailable HOY ., DR SIMS Primary Care Unavailable FAEMMA, ANGELO H Attending Unavailable HOY ., DR SMIS Primary Care Unavailable FAEMMA, ANGELO H Admitting [...] Unavailable HOY, LEVI Primary Care Unavailable MIL GARZA~[id number], [place] SEA GARZA~[phone] MIL Referring Unavailable HOY, LEVI Primary Care Unavailable EMMEL, BRITTANY Referring Unavailable HOY, LEVI Primary Care Unavailable COLLETTE JAMES Referring Unavailable EMMEL, BRITTANY Attending Unavailable HOY, LEVI Primary Care Unavailable BRITTANY WOOD Attending Unavailable HOY, LEVI Primary Care Unavailable NINA BRITTANY Referring Unavailable BRITTANY WOOD Attending Unavailable HOY, LEVI Primary Care Unavailable EMMJAMARCUS BRITTANY Referring Unavailable EMMJOAQUIN RICKETTSINE Attending Unavailable HOY, LEVI Primary Care Unavailable EMMEL, BRITTANY Referring Unavailable HOY, LEVI Primary Care Unavailable AISHA CAST Referring Unavailable HOY, LEVI Primary Care Unavailable CALOS SMITH Admitting Unavailable CALOS SMITH Attending Unavailable [facility] Unavailable Allergies Allergy Classification Reported Allergen(s) Allergy Type Date of Onset Reaction(s) Facility (5 sources) ceFAZolin; Translations: [CEFAZOLIN] Drug Allergy 1 Anaphylaxis [facility] (5 sources) Morphine; Translations: [MORPHINE] Drug Allergy 1 Hives, Itching [facility] (8 sources) NSAIDs; Translations: [NSAIDS (NON-STEROIDAL ANTI-INFLAMMATOR Y DRUG)] Drug Allergy 3 Anaphylaxis [facility] (5 sources) Vancomycin; Translations: [VANCOMYCIN] Drug Allergy 1 Other [facility] [employer] [facility] (1 source) Aspirin Drug Allergy 0 [facility] (3 sources) ceFAZolin Drug Allergy 5 [facility] (1 source) Morphine Drug Allergy 0 [facility] (2 sources) Morphine Drug Allergy 3 [facility] (2 sources) Vancomycin Drug Allergy [facility] Medications Current Medications Medication Drug [...] 20 mg/ml oral solution (2 sources) Uncompetitive Q-fxcbjv-M-aspartate Receptor Antagonist, Sigma-1 Agonist End: 12-29-2021 take [...] daily, First dose on Sun01/03/22 at 2100 Start: 01-08-2021 take 2.5 mg [...] mg, oral, Night ly, First dose on Sun01/03/22 at 2100 Start: 01-08-2021 take 600 mg [...] Oxygen Therapy , Adult polyethylene glycol 3350 31322 mg powder for oral solution (6 sources) [...] administer immediately). take 1 capsule by mo [facility] twice daily potassium chloride (MICRO-K) 10 [...] let 25 mg take 1 tablet by [facility] every six hours as needed promethazine (PHENERGAN) 25 mg tablet Take 1 tablet (25 mg total) by mouth every 6 (six) hours if needed for nausea or vomiting. 0 Active sennosides, detention 8.6 mg oral tablet (1 source) Start: 01-03-2022 End: 10-07-2022 senna (SENOKOT) tablet 8.6 mg Sodium Chloride [...] 02-19-2023 Episodic Other aftercare (1 source) Other [employer] (current) drug therapy; Translations: [OTH ALF CURRENT DRUG THERAPY] Onset: 08-25-2022 Episodic Other aftercare (1 source) [facility] (current) use of anticoagulants; Translations: [ALF CURRNT USE ANTICOAGULANTS] Onset: 08-25-2022 Episodic Other [...] [PERS HX METHICILLIN RSIST STAPH INF] Onset: 12-19-2021 Episodic Biliary tract disease (1 source) Other [...] 02-19-2023 C-Reactive Protein 1.0 mg/dL Normal 0.0-1.0 [facility] Comment on above: Performed By: #### 1 988-5 #### [facility] HOSPITAL LAB [address] [place] [address] ESR (Bld) [Velocity]on 02-19 Basophils (Bld) [#/Vol] 0.09 10*3/uL Normal 0.00-0.20 [facility] Comment on above: Performed By: #### 5 75-1 #### [facility] [address] [place] [address] Basophils/100 WBC (Bld) 1.1 % Normal 0.0-2.0 [facility] Comment on above: Performed By: #### 5 75-1 #### [facility] [place] [facility] LAB [address] [place] [address] Eosinophils (Bld) [#/Vol] 0.17 10*3/uL Normal 0.00-0.70 [facility] Comment on above: Performed By: #### 5 75-1 #### [facility] [place] [facility] [address] [place] [address] Eosinophils/100 WBC (Bld) 2.0 % Normal 0.0-7.0 [facility] Comment on above: Performed By: #### 75-1 #### [facility] [place] [facility] [address] [place] [address] Erythrocyte distribution width (RBC) [Ratio] 13.5 % Normal 11.0-14.8 [facility] Comment on above: Performed By: #### 75-1 #### [facility] [address] [place] [address] Hematocrit (Bld) [Volume fraction] 39.9 % Normal 34.3-47.9 [facility] Comment on above: Performed By: #### 5 75-1 #### [facility] [place] [facility] [address] [place] [address] Hemoglobin (Bld) [Mass/Vol] 12.7 g/dL Normal 12.0-16.0 [facility] Comment on above: Performed By: #### 5 75-1 #### [facility] [place] [facility] [address] [place] [address] Immature granulocytes (Bld) [#/Vol] 0.02 10*3/uL Normal 0.00-0.10 [facility] Comment on above: Performed By: #### 5 75-1 #### [facility] [place] [facility] [address] [place] [address] Immature granulocytes/100 WBC (Bld) 0.2 % Normal 0.0-1.2 [facility] Comment on above: Performed By: #### 5 75-1 #### [facility] [place] [facility] [address] [place] [address] Lymphocytes (Bld) [#/Vol] 2.55 10*3/uL Normal 1.00-4.80 [facility] Comment on above: Performed By: #### 5 75-1 #### [facility] [place] [facility] [address] [place] [address] Lymphocytes/100 WBC (Bld) 30.6 % Normal 17.9-49.6 [facility] Comment on above: Performed By: #### 5 75-1 #### [facility] [address] [place] [address] MCH 31.4 pcg Normal 27.0-34.0 [facility] Comment on above: Performed By: #### 5 75-1 #### [facility] [address] [place] [address] MCHC (RBC) [Mass/Vol] 31.8 g/dL Normal 30.8-35.3 [facility] Comment on above: Performed By: #### 5 75-1 #### [facility] LAB [address] [place] [address] MCV (RBC) [Entitic vol] 98.5 fL High 80.0-97.0 [facility] Comment on above: Performed By: #### 5 75-1 #### [facility] [place] [facility] [address] [place] [address] Monocytes (Bld) [#/Vol] 0.57 10*3/uL Normal 0.00-0.90 [facility] Comment on above: Performed By: #### 5 75-1 #### [facility] [place] [facility] [address] [place] [address] Monocytes/100 WBC (Bld) 6.9 % Normal 0.0-12.0 [facility] Comment on above: Performed By: #### 5 75-1 #### [facility] [place] [facility] [address] [place] [address] Neutrophils Absolute 4.92 K/mcL Normal 1.80-7.70 Spike benavides [facility] Comment on above: Performed By: #### 5 75-1 #### [facility] [place] ([facility] [address] [place] [address] Neutrophils/100 WBC (Bld) 59.2 % Normal 38.1-75.5 [facility] Comment on above: Performed By: #### 5 75-1 #### [facility] [place] [facility] [address] [place] [address] Platelet mean volume (Bld) [Entitic vol] 11.5 fL Normal 6.2-12.1 [facility] Comment on above: Performed By: #### 5 75-1 #### [facility] [place] [facility] [address] [place] [address] Platelets (Bld) [#/Vol] 262 10*3/uL Normal 142-424 [facility] Comment on above: Performed By: #### 5 75-1 #### [facility] [place] [facility] [address] [place] [address] RBC (Bld) [#/Vol] 4.05 10*6/uL Normal 3.74-5.34 [facility] Comment on above: Performed By: #### 5 75-1 #### [facility] [place] [facility] [address] [place] [address] WBC (Bld) [#/Vol] 8.3 10*3/uL Normal 4.6-10.2 [facility] Comment on above: Performed By: #### 5 75-1 #### [facility] [place] [facility] [address] [place] [address] CBC AUTO DIFFon 08-30-2022 BASO # 0.1 103/ul Normal 0.0-0.1 [facility] Comment on above: Performed By: #### C BC #### [facility] [address] [place] [address] Dr. Jeffrey Thomas Basophils/100 WBC (Bld) 0.9 % Normal 0.2-2.0 [facility] Comment on above: Performed By: #### C BC #### [facility] [address] [place] [address] Dr. Jeffrey Thomas EO # 0.2 103/ul Normal 0.0-0.7 [facility] Comment on above: Performed By: #### C BC #### [facility] [address] [place] [address] Dr. Jeffrey Thomas Eosinophils/100 WBC (Bld) 3.9 % Normal 0.9-7.0 [facility] Comment on above: Performed By: #### C BC #### [facility] [address] [place] [address] Dr. Jeffrey Thomas Erythrocyte distribution width (RBC) [Ratio] 14.6 % Normal 11.0-15.0 [facility] Comment on above: Performed By: #### C BC #### [facility] [address] [place] [address] Dr. Jeffrey Thomas Hematocrit (Bld) [Volume fraction] 32.7 % Critically low 36.0-48.0 [facility] Comment on above: Performed By: #### C BC #### [facility] [address] [place] [address] Dr. Jeffrey Thomas Hemoglobin (Bld) [Mass/Vol] 10.3 g/dL Critically low 12.0-16.0 [facility] Comment on above: Performed By: #### C BC #### [facility] [address] [place] [address] Dr. Jeffrey Thomas IG # 0.01 10e3/ul Normal 0.00-0.03 [facility] Comment on above: Performed By: #### C BC #### [facility] [address] [place] [address] Dr. Jeffrey Thomas IG % 0.2 % Normal 0.0-0.5 [facility] Comment on above: Performed By: #### C BC #### [facility] [address] [place] [address] Dr. Jeffrey Thomas LYMPH # 1.7 103/ul Normal 1.2-3.8 [facility] Comment on above: Performed By: #### C BC #### [facility] [address] [place] [address] Dr. Jeffrey Thomas Lymphocytes/100 WBC (Bld) 30.8 % Normal 20.5-60.0 [facility] Comment on above: Performed By: #### C BC #### [facility] [address] [place] [address] Dr. Jeffrey Thomas MANUAL DIFF REQ NO Normal [facility] Comment on above: Performed By: #### C BC #### [facility] [address] [place] [address] Dr. Jeffrey Thomas MCH (RBC) [Entitic mass] 30.2 pg Normal 26.7-34.0 [facility] Comment on above: Performed By: #### C BC #### [facility] [address] [place] [address] Dr. Jeffrey Thomas MCHC (RBC) [Mass/Vol] 31.5 g/dL Normal 29.9-35.2 [facility] Comment on above: Performed By: #### C BC #### [facility] [address] [place] [address] Dr. Jeffrey Thomas MCV (RBC) [Entitic vol] 95.9 fL Normal 81.0-99.0 [facility] Comment on above: Performed By: #### C BC #### [facility] [address] [place] [address] Dr. Jeffrey Thomas MONO # 0.4 103/ul Normal 0.3-0.8 [facility] Comment on above: Performed By: #### C BC #### [facility] [address] [place] [address] Dr. Jeffrey Thomas Monocytes/100 WBC (Bld) 7.8 % Normal 1.7-12.0 [facility] Comment on above: Performed By: #### C BC #### [facility] [address] [place] [address] Dr. Jeffrey Thomas NEUT # 3.2 103/ul Normal 1.4-6.5 [facility] Comment on above: Performed By: #### C BC #### [facility] [address] [place] [address] Dr. Jeffrey Thomas Neutrophils/100 WBC (Bld) 56.4 % Normal 43.0-75.0 [facility] Comment on above: Performed By: #### C BC #### [facility] [address] [place] [address] Dr. Jeffrey Thomas Platelet mean volume (Bld) [Entitic vol] 12.9 fL Normal 9.5-13.5 [facility] Comment on above: Performed By: #### C BC #### [facility] [address] [place] [address] Dr. Jeffrey Thomas PLT 149 103/ul Critically low 150-450 [facility] Comment on above: Performed By: #### C BC #### [facility] [address] [place] [address] Dr. Jeffrey Thomas RBC 3.41 106/ul Critically low 4.20-5.40 [facility] Comment on above: Performed By: #### C BC #### [facility] [address] [place] [address] Dr. Jeffrey Thomas WBC 5.6 103/ul Normal 4.0-11.0 [facility] Comment on above: Performed By: #### C BC #### [facility] [address] [place] [address] Dr. Jeffrey Thomas HEPATITIS PANEL, [facility] HBsAg Screen Negative Normal Negative [facility] Comment on above: Performed By: #### C MP #### [facility] [address] [place] [address] Dr. Jeffrey Thomas HCV AB Non-Reactive Normal Non Reactive [facility] Comment on above: Performed By: #### C MP #### [facility] [address] [place] [address] Dr. Jeffrey Thomas Hep A Ab, IgM Negative Normal Negative [facility] Comment on above: Performed By: #### C MP #### [facility] [address] [place] [address] Dr. Jeffrey Thomas Hep B Core Ab, IgM Negative Normal Negative [facility] Comment on above: Performed By: #### C MP #### [facility] [address] [place], [place] [id number] Dr. Jeffrey Thomas [place] HEPATOBILIARY SCAN W [...] by: GARO CASILLAS Date: 2022-08-30 07:23 Normal [facility] PROF 14(COMP METB)on 023 Albumin [Mass/Vol] 2.5 g/dL Critically low 3.4-5.0 [facility] Comment on above: Performed By: #### T 4LC #### [facility] [address] [place] [address] Dr. Jeffrey Thomas Albumin/Globulin [Mass ratio] 0.9 {ratio} Normal [facility] Comment on above: Performed By: #### T 4LC #### [facility] [address] [place] [address] Dr. Jeffrey Thomas ALP [Catalytic activity/Vol] 97 U/L Normal 46-116 [facility] Comment on above: Performed By: #### T 4LC #### [facility] [address] [place] [address] Dr. Jeffrey Thomas ALT [Catalytic activity/Vol] 39 U/L Normal 14-59 [facility] Comment on above: Performed By: #### T 4LC #### [facility] [address] [place] [address] Dr. Jeffrey Thomas Anion gap [Moles/Vol] 12.9 mmol/L Normal [facility] Comment on above: Performed By: #### T 4LC #### [facility] [address] [place] [address] Dr. Jeffrey Thomas AST [Catalytic activity/Vol] 19 U/L Normal 15-37 [facility] Comment on above: Performed By: #### T 4LC #### [facility] [address] [place] [address] Dr. Jeffrey Thomas Bilirubin [Mass/Vol] 0.2 mg/dL Normal 0.2-1.0 [facility] Comment on above: Performed By: #### T 4LC #### [facility] [address] [place] [address] Dr. Jeffrey Thomas Calcium [Mass/Vol] 8.2 mg/dL Critically low 8.5-10.1 [facility] Comment on above: Performed By: #### T 4LC #### [facility] [address] [place] [address] Dr. Jeffrey Thomas Chloride [Moles/Vol] 111 mmol/L Critically high 98-107 [facility] Comment on above: Performed By: #### T 4LC #### [facility] [address] [place] [address] Dr. Jeffrey Thomas CO2 [Moles/Vol] 24.2 mmol/L Normal 21.0-32.0 [facility] Comment on above: Performed By: #### T 4LC #### [facility] [address] [place] [address] Dr. Jeffrey Thomas Creatinine [Mass/Vol] 1.05 mg/dL Critically high 0.55-1.02 [facility] Comment on above: Performed By: #### T 4LC #### [facility] [address] [place] [address] Dr. Jeffrey Thomas EGFR-AF BAHAMIAN >60 Normal >=60 [facility] Comment on above: Performed By: #### T 4LC #### [facility] [address] [address] [address] Jeffrey Thomas EGFR-NON AF BAHAMIAN 53 mL/min/1.73m2 Critically low >=60 [facility] Comment on above: Performed By: #### T 4LC #### [facility] [address] [address] [address] Jeffrey Thomas Globulin (S) [Mass/Vol] 2.7 g/dL Normal [facility] Comment on above: Performed By: #### T 4LC #### [facility] [address] [address] [address] Jeffrey Thomas Glucose [Mass/Vol] 109 mg/dL Critically high 74-106 [facility] Comment on above: Performed By: #### T 4LC #### [facility] [address] [address] [address] Jeffrey Thomas Potassium [Moles/Vol] 4.1 mmol/L Normal 3.5-5.1 [facility] Comment on above: Performed By: #### T 4LC #### [facility] [address] [place] [address] Dr. Jeffrey Thomas Protein [Mass/Vol] 5.2 g/dL Critically low 6.4-8.2 [facility] Comment on above: Performed By: #### T 4LC #### [facility] [address] [address] [address] Jeffrey Thomas Sodium [Moles/Vol] 144 mmol/L Normal 136-145 [facility] Comment on above: Performed By: #### T 4LC #### [facility] [address] [address] [address] Jeffrey Thomas Urea nitrogen [Mass/Vol] 11.0 mg/dL Normal 7.0-18.0 [facility] Comment on above: Performed By: #### T 4LC #### [facility] [address] [address] [address] Jeffrey Thomas Urea nitrogen/Creatinine [Mass ratio] 10.5 mg/mg Normal [facility] Comment on above: Performed By: #### T 4LC #### [facility] [address] [place] [address] Dr. Jeffrey Thomas CBC AUTO DIFFon 08-29-2022 BASO # 0.1 103/ul Normal 0.0-0.1 [facility] Comment on above: Performed By: #### T 4LC #### [facility] [address] [place] [address] Dr. Jeffrey Thomas Basophils/100 WBC (Bld) 1.2 % Normal 0.2-2.0 [facility] Comment on above: Performed By: #### T 4LC #### [facility] [address] [place] [address] Dr. Jeffrey Thomas EO # 0.2 103/ul Normal 0.0-0.7 [facility] Comment on above: Performed By: #### T 4LC #### [facility] [address] [place] [address] Dr. Jeffrey Thomas Eosinophils/100 WBC (Bld) 4.1 % Normal 0.9-7.0 [facility] Comment on above: Performed By: #### T 4LC #### [facility] [address] [place] [address] Dr. Jeffrey Thomas Erythrocyte distribution width (RBC) [Ratio] 14.6 % Normal 11.0-15.0 [facility] Comment on above: Performed By: #### T 4LC #### [facility] [address] [place] [address] Dr. Jeffrey Thomas Hematocrit (Bld) [Volume fraction] 33.6 % Critically low 36.0-48.0 [facility] Comment on above: Performed By: #### T 4LC #### [facility] [address] [place] [address] Dr. Jeffrey Thomas Hemoglobin (Bld) [Mass/Vol] 10.3 g/dL Critically low 12.0-16.0 [facility] Comment on above: Performed By: #### T 4LC #### [facility] [address] [place] [address] Dr. Jeffrey Thomas IG # 0.01 10e3/ul Normal 0.00-0.03 [facility] Comment on above: Performed By: #### T 4LC #### [facility] [address] [place] [address] Dr. Jeffrey Thomas IG % 0.2 % Normal 0.0-0.5 [facility] Comment on above: Performed By: #### T 4LC #### [facility] [address] [place] [address] Dr. Jeffrey Thomas LYMPH # 1.7 103/ul Normal 1.2-3.8 [facility] Comment on above: Performed By: #### T 4LC #### [facility] [address] [place] [address] Dr. Jeffrey Thomas Lymphocytes/100 WBC (Bld) 34.4 % Normal 20.5-60.0 [facility] Comment on above: Performed By: #### T 4LC #### [facility] [address] [place] [address] Dr. Jeffrey Thomas MANUAL DIFF REQ NO Normal [facility] Comment on above: Performed By: #### T 4LC #### [facility] [address] [place] [address] Dr. Jeffrey Thomas MCH (RBC) [Entitic mass] 29.5 pg Normal 26.7-34.0 [facility] Comment on above: Performed By: #### T 4LC #### [facility] [address] [place] [address] Dr. Jeffrey Thomas MCHC (RBC) [Mass/Vol] 30.7 g/dL Normal 29.9-35.2 [facility] Comment on above: Performed By: #### T 4LC #### [facility] [address] [place] [address] Dr. Jeffrey Thomas MCV (RBC) [Entitic vol] 96.3 fL Normal 81.0-99.0 [facility] Comment on above: Performed By: #### T 4LC #### [facility] [address] [place] [address] Dr. Jeffrey Thomas MONO # 0.4 103/ul Normal 0.3-0.8 [facility] Comment on above: Performed By: #### T 4LC #### [facility] [address] [place] [address] Dr. Jeffrey Thomas Monocytes/100 WBC (Bld) 8.2 % Normal 1.7-12.0 [facility] Comment on above: Performed By: #### T 4LC #### [facility] [address] [place] [address] Dr. Jeffrey Thomas NEUT # 2.5 103/ul Normal 1.4-6.5 [facility] Comment on above: Performed By: #### T 4LC #### [facility] [address] [place] [address] Dr. Jeffrey Thomas Neutrophils/100 WBC (Bld) 51.9 % Normal 43.0-75.0 [facility] Comment on above: Performed By: #### T 4LC #### [facility] [address] [place] [address] Dr. Jeffrey Thomas Platelet mean volume (Bld) [Entitic vol] 12.5 fL Normal 9.5-13.5 [facility] Comment on above: Performed By: #### T 4LC #### [facility] [address] [place] [address] Dr. Jeffrey Thomas PLT 157 103/ul Normal 150-450 [facility] Comment on above: Performed By: #### T 4LC #### [facility] [address] [place] [address] Dr. Jeffrey Thomas RBC 3.49 106/ul Critically low 4.20-5.40 [facility] Comment on above: Performed By: #### T 4LC #### [facility] [address] [place] [address] Dr. Jeffrey Thomas WBC 4.9 103/ul Normal 4.0-11.0 [facility] Comment on above: Performed By: #### T 4LC #### [facility] Laboratory [address] [place] [address] Dr. Jeffrey Thomas PROF 14(COMP METB)on 023 Albumin [Mass/Vol] 2.6 g/dL Critically low 3.4-5.0 [facility] Comment on above: Performed By: #### C MP #### [facility] [address] [place] [address] Dr. Jeffrey Thomas Albumin/Globulin [Mass ratio] 1.0 {ratio} Normal [facility] Comment on above: Performed By: #### C MP #### [facility] [address] [address] [address] Jeffrey Thomas ALP [Catalytic activity/Vol] 94 U/L Normal 46-116 [facility] Comment on above: Performed By: #### C MP #### [facility] [address] [place] [address] Dr. Jeffrey Thomas ALT [Catalytic activity/Vol] 53 U/L Normal 14-59 [facility] Comment on above: Performed By: #### C MP #### [facility] [address] [place] [address] Dr. Jeffrey Thomas Anion gap [Moles/Vol] 11.2 mmol/L Normal [facility] Comment on above: Performed By: #### C MP #### [facility] [address] [place] [address] Dr. Jeffrey Thomas AST [Catalytic activity/Vol] 26 U/L Normal 15-37 [facility] Comment on above: Performed By: #### C MP #### [facility] [address] [place] [address] Dr. Jeffrey Thomas Bilirubin [Mass/Vol] 0.2 mg/dL Normal 0.2-1.0 [facility] Comment on above: Performed By: #### C MP #### [facility] [address] [place] [address] Dr. Jeffrey Thomas Calcium [Mass/Vol] 8.2 mg/dL Critically low 8.5-10.1 [facility] Comment on above: Performed By: #### C MP #### [facility] [address] [place] [address] Dr. Jeffrey Thomas Chloride [Moles/Vol] 114 mmol/L Critically high 98-107 [facility] Comment on above: Performed By: #### C MP #### [facility] [address] [address] [address] Jeffrey Thomas CO2 [Moles/Vol] 23.1 mmol/L Normal 21.0-32.0 [facility] Comment on above: Performed By: #### C MP #### [facility] [address] [address] [address] Jeffrey Thomas Creatinine [Mass/Vol] 0.95 mg/dL Normal 0.55-1.02 [facility] Comment on above: Performed By: #### C MP #### [facility] [address] [address] [address] Jeffrey Thomas EGFR-AF BAHAMIAN >60 Normal >=60 [facility] Comment on above: Performed By: #### C MP #### [facility] [address] [address] [address] Jeffrey Thomas EGFR-NON AF BAHAMIAN 59 mL/min/1.73m2 Critically low >=60 [facility] Comment on above: Performed By: #### C MP #### [facility] [address] [address] [address] Jeffrey Thomas Globulin (S) [Mass/Vol] 2.6 g/dL Normal [facility] Comment on above: Performed By: #### C MP #### [facility] [address] [address] [address] Jeffrey Thomas Glucose [Mass/Vol] 87 mg/dL Normal 74-106 [facility] Comment on above: Performed By: #### C MP #### [facility] [address] [address] [address] Jeffrey Thomas Potassium [Moles/Vol] 4.3 mmol/L Normal 3.5-5.1 [facility] Comment on above: Performed By: #### C MP #### [facility] [address] [address] [address] Jeffrey Thomas Protein [Mass/Vol] 5.2 g/dL Critically low 6.4-8.2 Th [facility] Comment on above: Performed By: #### C MP #### [facility] [address] [place] [address] Dr. Jeffrey Thomas Sodium [Moles/Vol] 144 mmol/L Normal 136-145 [facility] Comment on above: Performed By: #### C MP #### [facility] [address] [place] [address] Dr. Jeffrey Thomas Urea nitrogen [Mass/Vol] 10.0 mg/dL Normal 7.0-18.0 [facility] Comment on above: Performed By: #### C MP #### [facility] [address] [place] [address] Dr. Jeffrey Thomas Urea nitrogen/Creatinine [Mass ratio] 10.5 mg/mg Normal [facility] Comment on above: Performed By: #### C MP #### [facility] [address] [place] [address] Dr. Jeffrey Thomas CBC AUTO DIFFon 08-28-2022 BASO # 0.1 103/ul Normal 0.0-0.1 [facility] Comment on above: Performed By: #### T 4LC #### [facility] [address] [place] [address] Dr. Jeffrey Thomas Basophils/100 WBC (Bld) 1.2 % Normal 0.2-2.0 [facility] Comment on above: Performed By: #### T 4LC #### [facility] [address] [place] [address] Dr. Jeffrey Thomas EO # 0.3 103/ul Normal 0.0-0.7 [facility] Comment on above: Performed By: #### T 4LC #### [facility] [address] [place] [address] Dr. Jeffrey Thomas Eosinophils/100 WBC (Bld) 4.4 % Normal 0.9-7.0 [facility] Comment on above: Performed By: #### T 4LC #### [facility] [address] [place] [address] Dr. Jeffrey Thomas Erythrocyte distribution width (RBC) [Ratio] 14.8 % Normal 11.0-15.0 [facility] Comment on above: Performed By: #### T 4LC #### [facility] [address] [address] [address] Jeffrey Thomas Hematocrit (Bld) [Volume fraction] 33.5 % Critically low 36.0-48.0 [facility] Comment on above: Performed By: #### T 4LC #### [facility] [address] [place] [address] Dr. Jeffrey Thomas Hemoglobin (Bld) [Mass/Vol] 10.1 g/dL Critically low 12.0-16.0 [facility] Comment on above: Performed By: #### T 4LC #### [facility] [address] [place] [address] Dr. Jeffrey Thomas IG # 0.01 10e3/ul Normal 0.00-0.03 [facility] Comment on above: Performed By: #### T 4LC #### [facility] [address] [place] [address] Dr. Jeffrey Thomas IG % 0.2 % Normal 0.0-0.5 [facility] Comment on above: Performed By: #### T 4LC #### [facility] [address] [place] [address] Dr. Jeffrey Thomas LYMPH # 2.1 103/ul Normal 1.2-3.8 [facility] Comment on above: Performed By: #### T 4LC #### [facility] [address] [place] [address] Dr. Jeffrey Thomas Lymphocytes/100 WBC (Bld) 35.1 % Normal 20.5-60.0 [facility] Comment on above: Performed By: #### T 4LC #### [facility] [address] [place] [address] Dr. Jeffrey Thomas MANUAL DIFF REQ NO Normal [facility] Comment on above: Performed By: #### T 4LC #### [facility] [address] [place] [address] Dr. Jeffrey Thomas MCH (RBC) [Entitic mass] 29.6 pg Normal 26.7-34.0 [facility] Comment on above: Performed By: #### T 4LC #### [facility] [address] [place] [address] Dr. Jeffrey Thomas MCHC (RBC) [Mass/Vol] 30.1 g/dL Normal 29.9-35.2 [facility] Comment on above: Performed By: #### T 4LC #### [facility] [address] [place] [address] Dr. Jeffrey Thomas MCV (RBC) [Entitic vol] 98.2 fL Normal 81.0-99.0 [facility] Comment on above: Performed By: #### T 4LC #### [facility] [address] [place] [address] Dr. Jeffrey Thomas MONO # 0.5 103/ul Normal 0.3-0.8 [facility] Comment on above: Performed By: #### T 4LC #### [facility] [address] [place] [address] Dr. Jeffrey Thomas Monocytes/100 WBC (Bld) 7.7 % Normal 1.7-12.0 [facility] Comment on above: Performed By: #### T 4LC #### [facility] [address] [place] [address] Dr. Jeffrey Thomas NEUT # 3.1 103/ul Normal 1.4-6.5 [facility] Comment on above: Performed By: #### T 4LC #### [facility] [address] [place] [address] Dr. Jeffrey Thomas Neutrophils/100 WBC (Bld) 51.4 % Normal 43.0-75.0 [facility] Comment on above: Performed By: #### T 4LC #### [facility] [address] [place] [address] Dr. Jeffrey Thomas Platelet mean volume (Bld) [Entitic vol] 12.1 fL Normal 9.5-13.5 [facility] Comment on above: Performed By: #### T 4LC #### [facility] [address] [place] [address] Dr. Jeffrey Thomas PLT 180 103/ul Normal 150-450 [facility] Comment on above: Performed By: #### T 4LC #### [facility] [address] [place] [address] Dr. Jeffrey Thomas RBC 3.41 106/ul Critically low 4.20-5.40 [facility] Comment on above: Performed By: #### T 4LC #### [facility] [address] [place] [address] Dr. Jeffrey Thomas WBC 6.0 103/ul Normal 4.0-11.0 [facility] Comment on above: Performed By: #### T 4LC #### [facility] [address] [place] [address] Dr. Jeffrey Thomas PROF 14(COMP METB)on 023 Albumin [Mass/Vol] 2.8 g/dL Critically low 3.4-5.0 [facility] Comment on above: Performed By: #### C MP #### [facility] [address] [place] [address] Dr. Jeffrey Thomas Albumin/Globulin [Mass ratio] 1.1 {ratio} Normal [facility] Comment on above: Performed By: #### C MP #### [facility] [address] [place] [address] Dr. Jeffrey Thomas ALP [Catalytic activity/Vol] 96 U/L Normal 46-116 [facility] Comment on above: Performed By: #### C MP #### [facility] [address] [place] [address] Dr. Jeffrey Thomas ALT [Catalytic activity/Vol] 72 U/L Critically high 14-59 [facility] Comment on above: Performed By: #### C MP #### [facility] [address] [place] [address] Dr. Jeffrey Thomas Anion gap [Moles/Vol] 12.8 mmol/L Normal [facility] Comment on above: Performed By: #### C MP #### [facility] [address] [place] [address] Dr. Jeffrey Thomas AST [Catalytic activity/Vol] 39 U/L Critically high 15-37 [facility] Comment on above: Performed By: #### C MP #### [facility] [address] [address] [address] Jeffrey Thomas Bilirubin [Mass/Vol] 0.2 mg/dL Normal 0.2-1.0 [facility] Comment on above: Performed By: #### C MP #### [facility] [address] [address] [address] Jeffrey Thomas Calcium [Mass/Vol] 7.8 mg/dL Critically low 8.5-10.1 Th [facility] Comment on above: Performed By: #### C MP #### [facility] [address] [address] [address] Jeffrey Thomas Chloride [Moles/Vol] 115 mmol/L Critically high 98-107 [facility] Comment on above: Performed By: #### C MP #### [facility] [address] [place] [address] Dr. Jeffrey Thomas CO2 [Moles/Vol] 20.4 mmol/L Critically low 21.0-32.0 [facility] Comment on above: Performed By: #### C MP #### [facility] [address] [address] [address] Jeffrey Thomas Creatinine [Mass/Vol] 0.98 mg/dL Normal 0.55-1.02 [facility] Comment on above: Performed By: #### C MP #### [facility] [address] [place] [address] Dr. Jeffrey Thomas EGFR-AF BAHAMIAN >60 Normal >=60 [facility] Comment on above: Performed By: #### C MP #### [facility] [address] [place] [address] Dr. Jeffrey Thomas EGFR-NON AF BAHAMIAN 57 mL/min/1.73m2 Critically low >=60 [facility] Comment on above: Performed By: #### C MP #### [facility] [address] [place] [address] Dr. Jeffrey Thomas Globulin (S) [Mass/Vol] 2.6 g/dL Normal [facility] Comment on above: Performed By: #### C MP #### [facility] [address] [address] [address] Jeffrey Thomas Glucose [Mass/Vol] 80 mg/dL Normal 74-106 [facility] Comment on above: Performed By: #### C MP #### [facility] [address] [address] [address] Jeffrey Thomas Potassium [Moles/Vol] 4.2 mmol/L Normal 3.5-5.1 [facility] Comment on above: Performed By: #### C MP #### [facility] [address] [address] [address] Jeffrey Thomas Protein [Mass/Vol] 5.4 g/dL Critically low 6.4-8.2 [facility] Comment on above: Performed By: #### C MP #### [facility] [address] [place] [address] Dr. Jeffrey Thomas Sodium [Moles/Vol] 144 mmol/L Normal 136-145 [facility] Comment on above: Performed By: #### C MP #### [facility] [address] [place] [address] Dr. Jeffrey Thomas Urea nitrogen [Mass/Vol] 10.0 mg/dL Normal 7.0-18.0 [facility] Comment on above: Performed By: #### C MP #### [facility] [address] [place] [address] Dr. Jeffrey Thomas Urea nitrogen/Creatinine [Mass ratio] 10.2 mg/mg Normal [facility] Comment on above: Performed By: #### C MP #### [facility] [address] [place] [address] Dr. Jeffrey Thomas CBC AUTO DIFFon 08-27-2022 BASO # 0.1 103/ul Normal 0.0-0.1 [facility] Comment on above: Performed By: #### C MP #### [facility] [address] [place] [address] Dr. Jeffrey Thomas Basophils/100 WBC (Bld) 1.2 % Normal 0.2-2.0 [facility] Comment on above: Performed By: #### C MP #### [facility] [address] [place] [address] Dr. Jeffrey Thomas EO # 0.2 103/ul Normal 0.0-0.7 [facility] Comment on above: Performed By: #### C MP #### [facility] [address] [place] [address] Dr. Jeffrey Thomas Eosinophils/100 WBC (Bld) 4.0 % Normal 0.9-7.0 [facility] Comment on above: Performed By: #### C MP #### [facility] [address] [place] [address] Dr. Jeffrey Thomas Erythrocyte distribution width (RBC) [Ratio] 14.6 % Normal 11.0-15.0 [facility] Comment on above: Performed By: #### C MP #### [facility] [address] [place] [address] Dr. Jeffrey Thomas Hematocrit (Bld) [Volume fraction] 35.8 % Critically low 36.0-48.0 [facility] Comment on above: Performed By: #### C MP #### [facility] [address] [place] [address] Dr. Jeffrey Thomas Hemoglobin (Bld) [Mass/Vol] 11.4 g/dL Critically low 12.0-16.0 [facility] Comment on above: Performed By: #### C MP #### [facility] [address] [place] [address] Dr. Jeffrey Thomas IG # 0.01 10e3/ul Normal 0.00-0.03 [facility] Comment on above: Performed By: #### C MP #### [facility] [address] [place] [address] Dr. Jeffrey Thomas IG % 0.2 % Normal 0.0-0.5 [facility] Comment on above: Performed By: #### C MP #### [facility] [address] [place] [address] Dr. Jeffrey Thomas LYMPH # 2.0 103/ul Normal 1.2-3.8 [facility] Comment on above: Performed By: #### C MP #### [facility] [address] [place] [address] Dr. Jeffrey Thomas Lymphocytes/100 WBC (Bld) 35.4 % Normal 20.5-60.0 [facility] Comment on above: Performed By: #### C MP #### [facility] [address] [place] [address] Dr. Jeffrey Thomas MANUAL DIFF REQ NO Normal [facility] Comment on above: Performed By: #### C MP #### [facility] [address] [place] [address] Dr. Jeffrey Thomas MCH (RBC) [Entitic mass] 29.9 pg Normal 26.7-34.0 [facility] Comment on above: Performed By: #### C MP #### [facility] [address] [place] [address] Dr. Jeffrey Thomas MCHC (RBC) [Mass/Vol] 31.8 g/dL Normal 29.9-35.2 [facility] Comment on above: Performed By: #### C MP #### [facility] [address] [place] [address] Dr. Jeffrey Thomas MCV (RBC) [Entitic vol] 94.0 fL Normal 81.0-99.0 [facility] Comment on above: Performed By: #### C MP #### [facility] [address] [place] [address] Dr. Jeffrey Thomas MONO # 0.5 103/ul Normal 0.3-0.8 [facility] Comment on above: Performed By: #### C MP #### [facility] [address] [place] [address] Dr. Jeffrey Thomas Monocytes/100 WBC (Bld) 9.2 % Normal 1.7-12.0 [facility] Comment on above: Performed By: #### C MP #### [facility] [address] [place] [address] Dr. Jeffrey Thomas NEUT # 2.8 103/ul Normal 1.4-6.5 [facility] Comment on above: Performed By: #### C MP #### [facility] [address] [place] [address] Dr. Jeffrey Thomas Neutrophils/100 WBC (Bld) 50.0 % Normal 43.0-75.0 [facility] Comment on above: Performed By: #### C MP #### [facility] [address] [place] [address] Dr. Jeffrey Thomas Platelet mean volume (Bld) [Entitic vol] 12.0 fL Normal 9.5-13.5 [facility] Comment on above: Performed By: #### C MP #### [facility] [address] [address] [address] Jeffrey Thomas PLT 199 103/ul Normal 150-450 [facility] Comment on above: Performed By: #### C MP #### [facility] [address] [place] [address] Dr. Jeffrey Thomas RBC 3.81 106/ul Critically low 4.20-5.40 [facility] Comment on above: Performed By: #### C MP #### [facility] [address] [place] [address] Dr. Jeffrey Thomas WBC 5.7 103/ul Normal 4.0-11.0 [facility] Comment on above: Performed By: #### C MP #### [facility] [address] [place] [address] Dr. Jeffrey Thomas LACTATE/LACTIC ACIDon 2022 Lactate [Moles/Vol] 0.6 mmol/L Normal 0.4-2.0 [facility] Comment on above: Performed By: #### C MP #### [facility] [address] [place] [address] Dr. Jeffrey Thomas Lactate [Moles/Vol] 2.8 mmol/L Critically high 0.4-2.0 [facility] Comment on above: Performed By: #### T 4LC #### [facility] [address] [place] [address] Dr. Jeffrey Thomas PROF 14(COMP METB)on 023 Albumin [Mass/Vol] 2.8 g/dL Critically low 3.4-5.0 [facility] Comment on above: Performed By: #### C MP #### [facility] [address] [place] [address] Dr. Jeffrey Thomas Albumin/Globulin [Mass ratio] 0.9 {ratio} Normal [facility] Comment on above: Performed By: #### C MP #### [facility] [address] [place] [address] Dr. Jeffrey Thomas ALP [Catalytic activity/Vol] 100 U/L Normal 46-116 [facility] Comment on above: Performed By: #### C MP #### [facility] [address] [place] [address] Dr. Jeffrey Thomas ALT [Catalytic activity/Vol] 102 U/L Critically high 14-59 [facility] Comment on above: Performed By: #### C MP #### [facility] [address] [place] [address] Dr. Jeffrey Thomas Anion gap [Moles/Vol] 17.0 mmol/L Normal [facility] Comment on above: Performed By: #### C MP #### [facility] [address] [place] [address] Dr. eJffrey Thomas AST [Catalytic activity/Vol] 62 U/L Critically high 15-37 [facility] Comment on above: Performed By: #### C MP #### [facility] [address] [place] [address] Dr. Jeffrey Thomas Bilirubin [Mass/Vol] 0.3 mg/dL Normal 0.2-1.0 [facility] Comment on above: Performed By: #### C MP #### [facility] [address] [place] [address] Dr. Jeffrey Thomas Calcium [Mass/Vol] 8.1 mg/dL Critically low 8.5-10.1 [facility] Comment on above: Performed By: #### C MP #### [facility] [address] [place] [address] Dr. Jeffrey Thomas Chloride [Moles/Vol] 110 mmol/L Critically high 98-107 [facility] Comment on above: Performed By: #### C MP #### [facility] [address] [place] [address] Dr. Jeffrey Thomas CO2 [Moles/Vol] 18.6 mmol/L Critically low 21.0-32.0 [facility] Comment on above: Performed By: #### C MP #### [facility] [address] [address] [address] Jeffrey Thomas Creatinine [Mass/Vol] 1.43 mg/dL Critically high 0.55-1.02 [facility] Comment on above: Performed By: #### C MP #### [facility] [address] [address] [address] Jeffrey Thomas EGFR-AF BAHAMIAN 45 mL/min/1.73m2 Critically low >=60 [facility] Comment on above: Performed By: #### C MP #### [facility] [address] [address] [address] Jeffrey Thomas EGFR-NON AF BAHAMIAN 37 mL/min/1.73m2 Critically low >=60 [facility] Comment on above: Performed By: #### C MP #### [facility] [address] [address] [address] Jeffrey Thomas Globulin (S) [Mass/Vol] 3.0 g/dL Normal [facility] Comment on above: Performed By: #### C MP #### [facility] [address] [address] [address] Jeffrey Thomas Glucose [Mass/Vol] 141 mg/dL Critically high 74-106 [facility] Comment on above: Performed By: #### C MP #### [facility] [address] [address] [address] Jeffrey Thomas Potassium [Moles/Vol] 3.6 mmol/L Normal 3.5-5.1 [facility] Comment on above: Performed By: #### C MP #### [facility] [address] [address] [address] Jeffrey Thomas Protein [Mass/Vol] 5.8 g/dL Critically low 6.4-8.2 [facility] Comment on above: Performed By: #### C MP #### [facility] [address] [address] [address] Jeffrey Thomas Sodium [Moles/Vol] 142 mmol/L Normal 136-145 [facility] Comment on above: Performed By: #### C ALE #### [facility] [address] [place] [address] Dr. Jeffrey Thomas Urea nitrogen [Mass/Vol] 22.0 mg/dL Critically high 7.0-18.0 [facility] Comment on above: Performed By: #### C ALE #### [facility] [address] [place] [address] Dr. Jeffrey Thomas Urea nitrogen/Creatinine [Mass ratio] 15.4 mg/mg Normal [facility] Comment on above: Performed By: #### C ALE #### [facility] [address] [place] [address] Dr. Jeffrey Thomas AMYLASEon 08-26-2022 Amylase [Catalytic activity/Vol] 40 U/L Normal 25-115 [facility] Comment on above: Performed By: #### C ALE #### [facility] [address] [place] [address] Dr. Jeffrey Thomas CARDIAC CHONG ADMITon 023 CK [Catalytic activity/Vol] 39 U/L Normal 26-192 [facility] Comment on above: Performed By: #### C JUANITO AGUILERA #### [facility] [address] [place] [address] Dr. Jeffrey Thomas CK.MB [Mass/Vol] 1.47 ng/mL Normal <=3.60 [facility] Comment on above: Performed By: #### C JUANITO AGUILERA #### [facility] [address] [place] [address] Dr. Jeffrey Thomas HSTROP 7.0 pg/mL Normal 4.0-51.3 [facility] Comment on above: Result Comment: CUT- OFF POINTS HAVE BEEN ESTABLISHED BASED ON THE FOURTH UNIVERSAL DEFINITIONS OF MYOCARDIAL INFARCTION. THE UPPER REFERENCE LIMIT (URL) OF TROPONIN, DEFINED THE 99TH PERCENTILE OF cTnI DISTRIBUTION IN A REFERENCE POPULATION, HAS BEEN CONFIRMED THE DECISION THRESHOLD FOR LA DIAGNOSIS. Performed By: #### C JUANITO AGUILERA #### [facility] [address] [place] [address] Dr. Jeffrey Thomas SHONNA 107 ng/mL Critically high 9-82 [facility] Comment on above: Performed By: #### C MP, CMADM #### [facility] [address] [place] [address] Dr. Jeffrey Thomas CBC AUTO DIFFon 08-26-2022 BASO # 0.1 103/ul Normal 0.0-0.1 [facility] Comment on above: Performed By: #### C MP #### [facility] [address] [place] [address] Dr. Jeffrey Thomas Basophils/100 WBC (Bld) 0.9 % Normal 0.2-2.0 [facility] Comment on above: Performed By: #### C MP #### [facility] [address] [place] [address] Dr. Jeffrey Thomas EO # 0.1 103/ul Normal 0.0-0.7 [facility] Comment on above: Performed By: #### C MP #### [facility] [address] [place] [address] Dr. Jeffrey Thomas Eosinophils/100 WBC (Bld) 0.9 % Normal 0.9-7.0 [facility] Comment on above: Performed By: #### C MP #### [facility] [address] [place] [address] Dr. Jeffrey Thomas Erythrocyte distribution width (RBC) [Ratio] 14.1 % Normal 11.0-15.0 [facility] Comment on above: Performed By: #### C MP #### [facility] [address] [place] [address] Dr. Jeffrey Thomas Hematocrit (Bld) [Volume fraction] 48.3 % Critically high 36.0-48.0 [facility] Comment on above: Performed By: #### C MP #### [facility] [address] [place] [address] Dr. Jeffrey Thomas Hemoglobin (Bld) [Mass/Vol] 15.4 g/dL Normal 12.0-16.0 [facility] Comment on above: Performed By: #### C MP #### [facility] [address] [place] [address] Dr. Jeffrey Thomas IG # 0.04 10e3/ul Critically high 0.00-0.03 [facility] Comment on above: Performed By: #### C MP #### [facility] [address] [place] [address] Dr. Jeffrey Thomas IG % 0.3 % Normal 0.0-0.5 [facility] Comment on above: Performed By: #### C MP #### [facility] [address] [address] [address] Jeffrey Thomas LYMPH # 1.2 103/ul Normal 1.2-3.8 [facility] Comment on above: Performed By: #### C MP #### [facility] [address] [place] [address] Dr. Jeffrey Thomas Lymphocytes/100 WBC (Bld) 10.0 % Critically low 20.5-60.0 [facility] Comment on above: Performed By: #### C MP #### [facility] [address] [place] [address] Dr. Jeffrey Thomas MANUAL DIFF REQ NO Normal [facility] Comment on above: Performed By: #### C MP #### [facility] [address] [place] [address] Dr. Jeffrey Thomas MCH (RBC) [Entitic mass] 29.7 pg Normal 26.7-34.0 [facility] Comment on above: Performed By: #### C MP #### [facility] [address] [place] [address] Dr. Jeffrey Thomas MCHC (RBC) [Mass/Vol] 31.9 g/dL Normal 29.9-35.2 [facility] Comment on above: Performed By: #### C MP #### [facility] [address] [place] [address] Dr. Jeffrey Thomas MCV (RBC) [Entitic vol] 93.1 fL Normal 81.0-99.0 [facility] Comment on above: Performed By: #### C MP #### [facility] [address] [place] [address] Dr. Jeffrey Thomas MONO # 0.5 103/ul Normal 0.3-0.8 [facility] Comment on above: Performed By: #### C MP #### [facility] [address] [place] [address] Dr. Jeffrey Thomas Monocytes/100 WBC (Bld) 4.1 % Normal 1.7-12.0 [facility] Comment on above: Performed By: #### C MP #### [facility] [address] [place] [address] Dr. Jeffrey Thomas NEUT # 10.2 103/ul Critically high 1.4-6.5 [facility] Comment on above: Performed By: #### C MP #### [facility] [address] [place] [address] Dr. Jeffrey Thomas Neutrophils/100 WBC (Bld) 83.8 % Critically high 43.0-75.0 [facility] Comment on above: Performed By: #### C MP #### [facility] [address] [place] [address] Dr. Jeffrey Thomas Platelet mean volume (Bld) [Entitic vol] 12.2 fL Normal 9.5-13.5 [facility] Comment on above: Performed By: #### C MP #### [facility] [address] [place] [address] Dr. Jeffrey Thomas PLT 303 103/ul Normal 150-450 [facility] Comment on above: Performed By: #### C MP #### [facility] [address] [place] [address] Dr. Jeffrey Thomas RBC 5.19 106/ul Normal 4.20-5.40 [facility] Comment on above: Performed By: #### C MP #### [facility] [address] [place] [address] Dr. Jeffrey Thomas WBC 12.2 103/ul Critically high 4.0-11.0 [facility] Comment on above: Performed By: #### C MP #### [facility] [address] [place] [address] ABD/PELVIS WO CONon [...] by: SALVADOR POTTS Date: 2022-08-26 15:43 Normal [facility] LIPASEon 08-26-2022 Lipase [Catalytic activity/Vol] 27.0 U/L Critically low 73.0-393.0 [facility] Comment on above: Performed By: #### L ACT #### [facility] [address] [address] [address] Jeffrey Thomas PROF 14(COMP METB)on 023 Albumin [Mass/Vol] 3.7 g/dL Normal 3.4-5.0 [facility] Comment on above: Performed By: #### C JUANITO AGUILERA #### [facility] [address] [place], [place] [address] Dr. Jeffrey Thomas Albumin/Globulin [Mass ratio] 0.9 {ratio} Normal [facility] Comment on above: Performed By: #### C MP, CMADM #### [facility] [address] [address] [address] Jeffrey Thomas ALP [Catalytic activity/Vol] 138 U/L Critically high 46-116 [facility] Comment on above: Performed By: #### C MP, CMADM #### [facility] [address] [address] [address] Jeffrey Thomas ALT [Catalytic activity/Vol] 174 U/L Critically high 14-59 [facility] Comment on above: Performed By: #### C MP, CMADM #### [facility] [address] [address] [address] Jeffrey Thomas Anion gap [Moles/Vol] 20.4 mmol/L Normal [facility] Comment on above: Performed By: #### C MP, CMADM #### [facility] [address] [address] [address] Jeffrey Thomas AST [Catalytic activity/Vol] 135 U/L Critically high 15-37 [facility] Comment on above: Performed By: #### C MP, CMADM #### [facility] [address] [address] [address] Jeffrey Thomas Bilirubin [Mass/Vol] 0.4 mg/dL Normal 0.2-1.0 [facility] Comment on above: Performed By: #### C MP, CMADM #### [facility] [address] [address] [address] Jeffrey Thomas Calcium [Mass/Vol] 9.1 mg/dL Normal 8.5-10.1 [facility] Comment on above: Performed By: #### C MP, CMADM #### [facility] [address] [address] [address] Jeffrey Thomas Chloride [Moles/Vol] 103 mmol/L Normal 98-107 [facility] Comment on above: Performed By: #### C MP, CMADM #### [facility] [address] [address] [address] Jeffrey Thomas CO2 [Moles/Vol] 18.5 mmol/L Critically low 21.0-32.0 [facility] Comment on above: Performed By: #### C MP, CMADM #### [facility] [address] [address] [address] Jeffrey Thomas Creatinine [Mass/Vol] 1.85 mg/dL Critically high 0.55-1.02 [facility] Comment on above: Performed By: #### C MP, CMADM #### [facility] [address] [address] [address] Jeffrey Thomas EGFR-AF BAHAMIAN 33 mL/min/1.73m2 Critically low >=60 [facility] Comment on above: Performed By: #### C MP, CMADM #### [facility] [address] [place] [address] Dr. Jeffrey Thomas EGFR-NON AF BAHAMIAN 27 mL/min/1.73m2 Critically low >=60 [facility] Comment on above: Performed By: #### C MP, CMADM #### [facility] [address] [place] [address] Dr. Jeffrey Thomas Globulin (S) [Mass/Vol] 4.0 g/dL Normal [facility] Comment on above: Performed By: #### C MP, CMADM #### [facility] [address] [place] [address] Dr. Jeffrey Thomas Glucose [Mass/Vol] 110 mg/dL Critically high 74-106 [facility] Comment on above: Performed By: #### C MP, CMADM #### [facility] [address] [place] [address] Dr. Jeffrey Thomas Potassium [Moles/Vol] 3.9 mmol/L Normal 3.5-5.1 [facility] Comment on above: Performed By: #### C MP, CMADM #### [facility] [address] [place] [address] Dr. Jeffrey Thomas Protein [Mass/Vol] 7.7 g/dL Normal 6.4-8.2 [facility] Comment on above: Performed By: #### C MP, CMADM #### [facility] [address] [place] [address] Dr. Jeffrey Thomas Sodium [Moles/Vol] 138 mmol/L Normal 136-145 [facility] Comment on above: Performed By: #### C JUANITO AGUILERA #### [facility] [address] [address] [address] Jeffrey Thomas Urea nitrogen [Mass/Vol] 32.0 mg/dL Critically high 7.0-18.0 [facility] Comment on above: Performed By: #### C JUANITO AGUILERA #### [facility] [address] [place], [place] [address] Dr. Jeffrey Thomas Urea nitrogen/Creatinine [Mass ratio] 17.3 mg/mg Normal [facility] Comment on above: Performed By: #### C ALE, JUANITO #### [facility] [address] [address] [address] Jeffrey Thomas US SINGLE QUAD RT [...] LIDIA COLÓN Date: 2022-08-26 20:40 Normal [facility] CBC AUTO DIFFon 08-01-2022 BASO # 0.1 103/ul Normal 0.0-0.1 [facility] Comment on above: Performed By: #### T 4LC #### [facility] [address] [address] [address] Jeffrey Thomas Basophils/100 WBC (Bld) 1.3 % Normal 0.2-2.0 [facility] Comment on above: Performed By: #### T 4LC #### [facility] [address] [address] [address] Jeffrey Thomas EO # 0.2 103/ul Normal 0.0-0.7 [facility] Comment on above: Performed By: #### T 4LC #### [facility] [address] [address] [address] Jeffrey Thomas Eosinophils/100 WBC (Bld) 2.8 % Normal 0.9-7.0 [facility] Comment on above: Performed By: #### T 4LC #### [facility] [address] [address] [address] Jeffrey Thomas Erythrocyte distribution width (RBC) [Ratio] 15.9 % Critically high 11.0-15.0 [facility] Comment on above: Performed By: #### T 4LC #### [facility] [address] [address] [address] Jeffrey Thomas Hematocrit (Bld) [Volume fraction] 37.7 % Normal 36.0-48.0 [facility] Comment on above: Performed By: #### T 4LC #### [facility] [address] [address] [address] Jeffrey Thomas Hemoglobin (Bld) [Mass/Vol] 11.5 g/dL Critically low 12.0-16.0 [facility] Comment on above: Performed By: #### T 4LC #### [facility] [address] [address] [address] Jeffrey Thomas IG # 0.03 10e3/ul Normal 0.00-0.03 [facility] Comment on above: Performed By: #### T 4LC #### [facility] [address] [place] [address] Dr. Jeffrey Thomas IG % 0.4 % Normal 0.0-0.5 [facility] Comment on above: Performed By: #### T 4LC #### [facility] [address] [place] [address] Dr. Jeffrey Thomas LYMPH # 1.6 103/ul Normal 1.2-3.8 [facility] Comment on above: Performed By: #### T 4LC #### [facility] [address] [place] [address] Dr. Jeffrey Thomas Lymphocytes/100 WBC (Bld) 20.9 % Normal 20.5-60.0 [facility] Comment on above: Performed By: #### T 4LC #### [facility] [address] [place] [address] Dr. Jeffrey Thomas MANUAL DIFF REQ NO Normal [facility] Comment on above: Performed By: #### T 4LC #### [facility] [address] [place] [address] Dr. Jeffrey Thomas MCH (RBC) [Entitic mass] 30.0 pg Normal 26.7-34.0 [facility] Comment on above: Performed By: #### T 4LC #### [facility] [address] [place] [address] Dr. Jeffrey Thomas MCHC (RBC) [Mass/Vol] 30.5 g/dL Normal 29.9-35.2 [facility] Comment on above: Performed By: #### T 4LC #### [facility] [address] [place] [address] Dr. Jeffrey Thomas MCV (RBC) [Entitic vol] 98.4 fL Normal 81.0-99.0 [facility] Comment on above: Performed By: #### T 4LC #### [facility] [address] [place] [address] Dr. Jeffrey Thomas MONO # 0.7 103/ul Normal 0.3-0.8 [facility] Comment on above: Performed By: #### T 4LC #### [facility] [address] [place] [address] Dr. Jeffrey Thomas Monocytes/100 WBC (Bld) 8.7 % Normal 1.7-12.0 [facility] Comment on above: Performed By: #### T 4LC #### [facility] [address] [place] [address] Dr. Jeffrey Thomas NEUT # 5.2 103/ul Normal 1.4-6.5 [facility] Comment on above: Performed By: #### T 4LC #### [facility] [address] [place] [address] Dr. Jeffrey Thomas Neutrophils/100 WBC (Bld) 65.9 % Normal 43.0-75.0 [facility] Comment on above: Performed By: #### T 4LC #### [facility] [address] [place] [address] Dr. Jeffrey Thomas Platelet mean volume (Bld) [Entitic vol] 11.8 fL Normal 9.5-13.5 [facility] Comment on above: Performed By: #### T 4LC #### [facility] [address] [place] [address] Dr. Jeffrey Thomas PLT 265 103/ul Normal 150-450 [facility] Comment on above: Performed By: #### T 4LC #### [facility] [address] [place] [address] Dr. Jeffrey Thomas RBC 3.83 106/ul Critically low 4.20-5.40 [facility] Comment on above: Performed By: #### T 4LC #### [facility] [address] [place] [address] Dr. Jeffrey Thomas WBC 7.8 103/ul Normal 4.0-11.0 [facility] Comment on above: Performed By: #### T 4LC #### [facility] [address] [place] [address] Dr. Jeffrey Thomas CULTURE BLOODon 08-01-2022 Microscopic examination of blood, culture Culture Observations: NO GROWTH AT 5 DAYS. Normal [facility] Comment on above: Performed By: #### A MM #### [facility] [address] [address] [address] Jeffrey Thoams PROF 14(COMP METB)on 023 Albumin [Mass/Vol] 3.4 g/dL Normal 3.4-5.0 [facility] Comment on above: Performed By: #### C MP #### [facility] [address] [place] [address] Dr. Jeffrey Thomas Albumin/Globulin [Mass ratio] 0.8 {ratio} Normal [facility] Comment on above: Performed By: #### C MP #### [facility] [address] [place] [address] Dr. Jeffrey Thomas ALP [Catalytic activity/Vol] 98 U/L Normal 46-116 [facility] Comment on above: Performed By: #### C MP #### [facility] [address] [place] [address] Dr. Jeffrey Thomas ALT [Catalytic activity/Vol] 18 U/L Normal 14-59 [facility] Comment on above: Performed By: #### C MP #### [facility] [address] [address] [address] Jeffrey Thomas Anion gap [Moles/Vol] 13.3 mmol/L Normal [facility] Comment on above: Performed By: #### C MP #### [facility] [address] [place] [address] Dr. Jeffrey Thomas AST [Catalytic activity/Vol] 21 U/L Normal 15-37 [facility] Comment on above: Performed By: #### C MP #### [facility] [address] [place] [address] Dr. Jeffrey Thomas Bilirubin [Mass/Vol] 0.2 mg/dL Normal 0.2-1.0 [facility] Comment on above: Performed By: #### C MP #### [facility] [address] [place] [address] Dr. Jeffrey Thomas Calcium [Mass/Vol] 9.2 mg/dL Normal 8.5-10.1 [facility] Comment on above: Performed By: #### C MP #### [facility] [address] [address] [address] Jeffrey Thomas Chloride [Moles/Vol] 106 mmol/L Normal 98-107 [facility] Comment on above: Performed By: #### C MP #### [facility] [address] [address] [address] Jeffrey Thomas CO2 [Moles/Vol] 23.8 mmol/L Normal 21.0-32.0 [facility] Comment on above: Performed By: #### C MP #### [facility] [address] [address] [address] Jeffrey Thomas Creatinine [Mass/Vol] 1.07 mg/dL Critically high 0.55-1.02 [facility] Comment on above: Performed By: #### C MP #### [facility] [address] [place] [address] Dr. Jeffrey Thomas EGFR-AF BAHAMIAN >60 Normal >=60 [facility] Comment on above: Performed By: #### C MP #### [facility] [address] [address] [address] Jeffrey Thomas EGFR-NON AF BAHAMIAN 51 mL/min/1.73m2 Critically low >=60 [facility] Comment on above: Performed By: #### C MP #### [facility] [address] [address] [address] Jeffrey Thomas Globulin (S) [Mass/Vol] 4.1 g/dL Normal [facility] Comment on above: Performed By: #### C MP #### [facility] [address] [address] [address] Jeffrey Thomas Glucose [Mass/Vol] 77 mg/dL Normal 74-106 [facility] Comment on above: Performed By: #### C MP #### [facility] [address] [address] [address] Jeffrey Thomas Potassium [Moles/Vol] 5.1 mmol/L Normal 3.5-5.1 [facility] Comment on above: Performed By: #### C MP #### [facility] [address] [address] [address] Jeffrey Thomas Protein [Mass/Vol] 7.5 g/dL Normal 6.4-8.2 [facility] Comment on above: Performed By: #### C MP #### [facility] [address] [place] [address] Dr. Jeffrey Thomas Sodium [Moles/Vol] 138 mmol/L Normal 136-145 [facility] Comment on above: Performed By: #### C MP #### [facility] [address] [address] [address] Jeffrey Thomas Urea nitrogen [Mass/Vol] 36.0 mg/dL Critically high 7.0-18.0 [facility] Comment on above: Performed By: #### C MP #### [facility] [address] [place] [address] Dr. Jeffrey Thomas Urea nitrogen/Creatinine [Mass ratio] 33.6 mg/mg Normal [facility] Comment on above: Performed By: #### C MP #### [facility] [address] [place] [address] Dr. Jeffrey Thomas [facility] 42 mm/hr Critically high <=30 [facility] Comment on above: Performed By: #### C MP #### [facility] [address] [place] [address] Dr. Jeffrey Thomas AMMONIAon 05-23-2022 Ammonia (P) [Moles/Vol] 18 umol/L Normal 11-32 [facility] Comment on above: Performed By: #### C MP #### [facility] [address] [place] [address] Dr. Jeffrey Thomas AMYLASEon 05-23-2022 Amylase [Catalytic activity/Vol] 30 U/L Normal 25-115 [facility] Comment on above: Performed By: #### A MM #### [facility] [address] [place] [address] Dr. Jeffrey Thomas BNPon 05-23-2022 Natriuretic peptide B (Bld) [Mass/Vol] 1066.0 pg/mL Critically high <=900.0 [facility] Comment on above: Performed By: #### A MM #### [facility] [address] [address] [address] Jeffrey Thomas CBC AUTO DIFFon 05-23-2022 BASO # 0.1 103/ul Normal 0.0-0.1 [facility] Comment on above: Performed By: #### C MP #### [facility] [address] [address] [address] Jeffrey Thomas Basophils/100 WBC (Bld) 1.1 % Normal 0.2-2.0 [facility] Comment on above: Performed By: #### C MP #### [facility] [address] [address] [address] Jeffrey Thomas EO # 0.2 103/ul Normal 0.0-0.7 [facility] Comment on above: Performed By: #### C MP #### [facility] [address] [place] [address] Dr. Jeffrey Thomas Eosinophils/100 WBC (Bld) 3.1 % Normal 0.9-7.0 [facility] Comment on above: Performed By: #### C MP #### [facility] [address] [place] [address] Dr. Jeffrey Thomas Erythrocyte distribution width (RBC) [Ratio] 17.2 % Critically high 11.0-15.0 [facility] Comment on above: Performed By: #### C MP #### [facility] [address] [place] [address] Dr. Jeffrey Thomas Hematocrit (Bld) [Volume fraction] 33.0 % Critically low 36.0-48.0 [facility] Comment on above: Performed By: #### C MP #### [facility] [address] [place] [address] Dr. Jeffrey Thomas Hemoglobin (Bld) [Mass/Vol] 10.3 g/dL Critically low 12.0-16.0 [facility] Comment on above: Performed By: #### C MP #### [facility] [address] [place] [address] Dr. Jeffrey Thomas IG # 0.02 10e3/ul Normal 0.00-0.03 [facility] Comment on above: Performed By: #### C MP #### [facility] [address] [place] [address] Dr. Jeffrey Thomas IG % 0.3 % Normal 0.0-0.5 [facility] Comment on above: Performed By: #### C MP #### [facility] [address] [place] [address] Dr. Jeffrey Thomas LYMPH # 1.8 103/ul Normal 1.2-3.8 [facility] Comment on above: Performed By: #### C MP #### [facility] [address] [place] [address] Dr. Jeffrey Thomas Lymphocytes/100 WBC (Bld) 27.8 % Normal 20.5-60.0 [facility] Comment on above: Performed By: #### C MP #### [facility] [address] [place] [address] Dr. Jeffrey Thomas MANUAL DIFF REQ NO Normal [facility] Comment on above: Performed By: #### C MP #### [facility] [address] [place] [address] Dr. Jeffrey Thomas MCH (RBC) [Entitic mass] 28.4 pg Normal 26.7-34.0 [facility] Comment on above: Performed By: #### C MP #### [facility] [address] [place] [address] Dr. Jeffrey Thomas MCHC (RBC) [Mass/Vol] 31.2 g/dL Normal 29.9-35.2 [facility] Comment on above: Performed By: #### C MP #### [facility] [address] [place] [address] Dr. Jeffrey Thomas MCV (RBC) [Entitic vol] 90.9 fL Normal 81.0-99.0 [facility] Comment on above: Performed By: #### C MP #### [facility] [address] [place] [address] Dr. Jeffrey Thomas MONO # 0.4 103/ul Normal 0.3-0.8 [facility] Comment on above: Performed By: #### C MP #### [facility] [address] [address] [address] Jeffrey Thomas Monocytes/100 WBC (Bld) 6.7 % Normal 1.7-12.0 [facility] Comment on above: Performed By: #### C MP #### [facility] [address] [address] [address] Jeffrey Thomas NEUT # 4.0 103/ul Normal 1.4-6.5 [facility] Comment on above: Performed By: #### C MP #### [facility] [address] [place] [address] Dr. Jeffrey Thomas Neutrophils/100 WBC (Bld) 61.0 % Normal 43.0-75.0 [facility] Comment on above: Performed By: #### C MP #### [facility] [address] [place] [address] Dr. Jeffrey Thomas Platelet mean volume (Bld) [Entitic vol] 10.4 fL Normal 9.5-13.5 [facility] Comment on above: Performed By: #### C MP #### [facility] [address] [place] [address] Dr. Jeffrey Thomas PLT 218 103/ul Normal 150-450 [facility] Comment on above: Performed By: #### C MP #### [facility] [address] [place] [address] Dr. Jeffrey Thomas RBC 3.63 106/ul Critically low 4.20-5.40 [facility] Comment on above: Performed By: #### C MP #### [facility] [address] [place] [address] Dr. Jeffrey Thomas WBC 6.5 103/ul Normal 4.0-11.0 [facility] Comment on above: Performed By: #### C MP #### [facility] [address] [place] [address] Dr. Jeffrey Thomas MAGNESIUMon 05-23-2022 Magnesium [Mass/Vol] 1.4 mg/dL Critically low 1.8-2.4 [facility] Comment on above: Performed By: #### A MM #### [facility] [address] [place] [address] Dr. Jeffrey Thomas PROF 14(COMP METB)on 023 Albumin [Mass/Vol] 2.8 g/dL Critically low 3.4-5.0 [facility] Comment on above: Performed By: #### A MM #### [facility] [address] [place] [address] Dr. Jeffrey Thomas Albumin/Globulin [Mass ratio] 1.0 {ratio} Normal [facility] Comment on above: Performed By: #### A MM #### [facility] [address] [place] [address] Dr. Jeffrey Thomas ALP [Catalytic activity/Vol] 113 U/L Normal 46-116 [facility] Comment on above: Performed By: #### A MM #### [facility] [address] [place] [address] Dr. Jeffrey Thomas ALT [Catalytic activity/Vol] 14 U/L Normal 14-59 [facility] Comment on above: Performed By: #### A MM #### [facility] Laboratory [address] [place] [address] Dr. Jeffrey Thomas Anion gap [Moles/Vol] 15.0 mmol/L Normal [facility] Comment on above: Performed By: #### A MM #### [facility] [address] [place] [address] Dr. Jeffrey Thomas AST [Catalytic activity/Vol] 18 U/L Normal 15-37 [facility] Comment on above: Performed By: #### A MM #### [facility] [address] [place] [address] Dr. Jeffrey Thomas Bilirubin [Mass/Vol] 0.5 mg/dL Normal 0.2-1.0 [facility] Comment on above: Performed By: #### A MM #### [facility] [address] [place] [address] Dr. Jeffrey Thomas Calcium [Mass/Vol] 8.3 mg/dL Critically low 8.5-10.1 [facility] Comment on above: Performed By: #### A MM #### [facility] [address] [address] [address] Jeffrey Thomas Chloride [Moles/Vol] 106 mmol/L Normal 98-107 [facility] Comment on above: Performed By: #### A MM #### [facility] [address] [address] [address] Jeffrey Thomas CO2 [Moles/Vol] 21.2 mmol/L Normal 21.0-32.0 [facility] Comment on above: Performed By: #### A MM #### [facility] [address] [address] [address] Jeffrey Thomas Creatinine [Mass/Vol] 1.02 mg/dL Normal 0.55-1.02 [facility] Comment on above: Performed By: #### A MM #### [facility] [address] [place] [address] Dr. Jeffrey Thomas EGFR-AF BAHAMIAN >60 Normal >=60 [facility] Comment on above: Performed By: #### A MM #### [facility] [address] [place] [address] Dr. Jeffrey Thomas EGFR-NON AF BAHAMIAN 54 mL/min/1.73m2 Critically low >=60 [facility] Comment on above: Performed By: #### A MM #### [facility] [address] [place] [address] Dr. Jeffrey Thomas Globulin (S) [Mass/Vol] 2.8 g/dL Normal [facility] Comment on above: Performed By: #### A MM #### [facility] [address] [place] [address] Dr. eJffrey Thomas Glucose [Mass/Vol] 85 mg/dL Normal 74-106 [facility] Comment on above: Performed By: #### A MM #### [facility] [address] [place] [address] Dr. Jeffrey Thomas Potassium [Moles/Vol] 4.2 mmol/L Normal 3.5-5.1 [facility] Comment on above: Performed By: #### A MM #### [facility] [address] [place] [address] Dr. Jeffrey Thomas Protein [Mass/Vol] 5.6 g/dL Critically low 6.4-8.2 [facility] Comment on above: Performed By: #### A MM #### [facility] [address] [place] [address] Dr. Jeffrey Thomas Sodium [Moles/Vol] 138 mmol/L Normal 136-145 [facility] Comment on above: Performed By: #### A MM #### [facility] [address] [place] [address] Dr. Jeffrey Thomas Urea nitrogen [Mass/Vol] 17.0 mg/dL Normal 7.0-18.0 [facility] Comment on above: Performed By: #### A MM #### [facility] [address] [place] [address] Dr. Jeffrey Thomas Urea nitrogen/Creatinine [Mass ratio] 16.7 mg/mg Normal [facility] Comment on above: Performed By: #### A MM #### [facility] [address] [place] [address] Dr. Jeffrey Thomas BNPon 05-22-2022 Natriuretic peptide B (Bld) [Mass/Vol] 1738.0 pg/mL Critically high <=900.0 [facility] Comment on above: Performed By: #### C MP #### [facility] [address] [place] [address] Dr. Jeffrey Thomas CBC AUTO DIFFon 05-22-2022 BASO # 0.1 103/ul Normal 0.0-0.1 [facility] Comment on above: Performed By: #### C MP #### [facility] [address] [place] [address] Dr. Jeffrey Thomas Basophils/100 WBC (Bld) 1.0 % Normal 0.2-2.0 [facility] Comment on above: Performed By: #### C MP #### [facility] [address] [place] [address] Dr. Jeffrey Thomas EO # 0.1 103/ul Normal 0.0-0.7 [facility] Comment on above: Performed By: #### C MP #### [facility] [address] [place] [address] Dr. Jeffrey Thomas Eosinophils/100 WBC (Bld) 1.0 % Normal 0.9-7.0 [facility] Comment on above: Performed By: #### C MP #### [facility] [address] [place] [address] Dr. Jeffrey Thomas Erythrocyte distribution width (RBC) [Ratio] 17.2 % Critically high 11.0-15.0 [facility] Comment on above: Performed By: #### C MP #### [facility] [address] [place] [address] Dr. Jeffrey Thomas Hematocrit (Bld) [Volume fraction] 36.8 % Normal 36.0-48.0 [facility] Comment on above: Performed By: #### C MP #### [facility] [address] [place] [address] Dr. Jeffrey Thomas Hemoglobin (Bld) [Mass/Vol] 11.8 g/dL Critically low 12.0-16.0 [facility] Comment on above: Performed By: #### C MP #### [facility] [address] [place] [address] Dr. Jeffrey Thomas IG # 0.01 10e3/ul Normal 0.00-0.03 [facility] Comment on above: Performed By: #### C MP #### [facility] [address] [place] [address] Dr. Jeffrey Thomas IG % 0.2 % Normal 0.0-0.5 [facility] Comment on above: Performed By: #### C MP #### [facility] [address] [place] [address] Dr. Jeffrey Thomas LYMPH # 1.4 103/ul Normal 1.2-3.8 [facility] Comment on above: Performed By: #### C MP #### [facility] [address] [place] [address] Dr. Jeffrey Thomas Lymphocytes/100 WBC (Bld) 28.2 % Normal 20.5-60.0 [facility] Comment on above: Performed By: #### C MP #### [facility] [address] [place] [address] Dr. Jeffrey Thomas MANUAL DIFF REQ NO Normal [facility] Comment on above: Performed By: #### C MP #### [facility] [address] [place] [address] Dr. Jeffrey Thomas MCH (RBC) [Entitic mass] 29.0 pg Normal 26.7-34.0 [facility] Comment on above: Performed By: #### C MP #### [facility] [address] [place] [address] Dr. Jeffrey Thomas MCHC (RBC) [Mass/Vol] 32.1 g/dL Normal 29.9-35.2 [facility] Comment on above: Performed By: #### C MP #### [facility] [address] [place] [address] Dr. Jeffrey Thomas MCV (RBC) [Entitic vol] 90.4 fL Normal 81.0-99.0 [facility] Comment on above: Performed By: #### C MP #### [facility] [address] [place] [address] Dr. Jeffrey Thomas MONO # 0.4 103/ul Normal 0.3-0.8 [facility] Comment on above: Performed By: #### C MP #### [facility] [address] [place] [address] Dr. Jeffrey Thomas Monocytes/100 WBC (Bld) 7.3 % Normal 1.7-12.0 [facility] Comment on above: Performed By: #### C MP #### [facility] [address] [place] [address] Dr. Jeffrey Thomas NEUT # 3.0 103/ul Normal 1.4-6.5 [facility] Comment on above: Performed By: #### C MP #### [facility] [address] [place] [address] Dr. Jeffrey hTomas Neutrophils/100 WBC (Bld) 62.3 % Normal 43.0-75.0 [facility] Comment on above: Performed By: #### C MP #### [facility] [address] [place] [address] Dr. Jeffrey Thomas Platelet mean volume (Bld) [Entitic vol] 10.4 fL Normal 9.5-13.5 [facility] Comment on above: Performed By: #### C MP #### [facility] [address] [place] [address] Dr. Jeffrey Thomas PLT 254 103/ul Normal 150-450 [facility] Comment on above: Performed By: #### C MP #### [facility] [address] [address] [address] Jeffrey Thomas RBC 4.07 106/ul Critically low 4.20-5.40 [facility] Comment on above: Performed By: #### C MP #### [facility] [address] [address] [address] Jeffrey Thomas WBC 4.8 103/ul Normal 4.0-11.0 [facility] Comment on above: Performed By: #### C MP #### [facility] [address] [place] [address] ABD/PELVIS WO CONon [...] SALOME JOLLY Date: 2022-05-22 15:45 Normal [facility] CULTURE URINEon 05-22-2022 CULTURE URINE Culture Observations : LIGHT GROWTH OF MIXED GENITAL CANDIDA. NO POTENTIAL PATHOGENS SEEN. Normal [facility] Comment on above: Performed By: #### A MM #### [facility] [address] [place] [address] Dr. Jeffrey Thomas Covid-19 PCR ([facility])on 05-04 SARS-CoV-2 (COVID-19) RNA REBECCA+probe Ql (Unsp spec) Not detected Normal NOT DETECTED [facility] Comment on above: Result Comment: When [...] for this test is supported by the [place] of Health and Human Service's declaration that [...] used). Performed By: #### C MP #### [facility] [address] [place] [address] Dr. Jeffrey Thomas ER URINE PROFILEon 3 Bilirubin Ql (U) Negative Normal NEGATIVE [facility] Comment on above: Performed By: #### C MP #### [facility] [address] [place] [address] Dr. Jeffrey Thomas Clarity (U) CLEAR Normal CLEAR [facility] Comment on above: Performed By: #### C MP #### [facility] [address] [place] [address] Dr. Jeffrey Thomas Color (U) YELLOW Normal YELLOW [facility] Comment on above: Performed By: #### C MP #### [facility] [address] [place] [address] Dr. Jeffrey Thomas ERUAHD A micrscopic examination will be performed if indicated. Normal [facility] Comment on above: Performed By: #### C MP #### [facility] [address] [place] [address] Dr. Jeffrey Thomas Glucose Ql (U) Negative Normal NEGATIVE [facility] Comment on above: Performed By: #### C MP #### [facility] [address] [place] [address] Dr. Jeffrey Thomas Hemoglobin Ql (U) Negative Normal NEGATIVE [facility] Comment on above: Performed By: #### C MP #### [facility] [address] [address] [address] Jeffrey Thomas Ketones Ql (U) Negative Normal NEGATIVE [facility] Comment on above: Performed By: #### C MP #### [facility] [address] [place] [address] Dr. Jeffrey Thomas LEUKOCYTES Negative Normal NEGATIVE [facility] Comment on above: Performed By: #### C MP #### [facility] [address] [place] [address] Dr. Jeffrey Thomas Nitrite Ql (U) Negative Normal NEGATIVE [facility] Comment on above: Performed By: #### C MP #### [facility] [address] [place] [address] Dr. Jeffrey Thomas pH (U) 5.0 [pH] Normal 5-9 [facility] Comment on above: Performed By: #### C MP #### [facility] [address] [address] [address] Jeffrey Thomas SPEC GRAVITY 1.020 Normal 1.005-<=1.02 5 [facility] Comment on above: Performed By: #### C MP #### [facility] [address] [place] [address] Dr. Jeffrey Thomas UA PROTEIN Negative Normal NEGATIVE/ TRACE [facility] Comment on above: Performed By: #### C MP #### [facility] [address] [place] [address] Dr. Jeffrey Thomas UR MICRO IND NOT INDICATED Normal [facility] Comment on above: Performed By: #### C MP #### [facility] [address] [place] [address] Dr. Jeffrey Thomas Urobilinogen Qn (U) 0.2 {Bere'U}/dL Normal 0.2 - 1. 0 [facility] Comment on above: Performed By: #### C MP #### [facility] [address] [place] [address] Dr. Jeffrey Thomas INFLUENZA A AND B AGon 05-22 INFLUANEGH SEE BELOW Normal [facility] Comment on above: Result Comment: Nega tive for Flu A protein angiten. Infection due to Flu A cannot be ruled out. Flu A angiten in the sample may be below the detection limit of the test. Performed By: #### C MP #### [facility] [address] [place] [address] Dr. Jeffrey Thomas INFLUBNEG SEE BELOW Normal [facility] Comment on above: Result Comment: Nega tive for Flu B protein antigen. Infection due to Flu B cannot be ruled out. Flu B antigen in the sample may be below the detection limit of the test. Performed By: #### C MP #### [facility] [address] [place] [address] Dr. Jeffrey Thomas INFLUENZA A AG Negative Normal NEGATIVE SEE COMMENT [facility] Comment on above: Performed By: #### C MP #### [facility] [address] [place] [address] Dr. Jeffrey Thomas INFLUENZA B AG Negative Normal NEGATIVE SEE COMMENT [facility] Comment on above: Performed By: #### C MP #### [facility] [address] [place] [address] Dr. Jeffrey Thomas LACTATE/LACTIC ACIDon 2022 Lactate [Moles/Vol] 1.4 mmol/L Normal 0.4-1.9 [facility] Comment on above: Performed By: #### L ACT #### [facility] [address] [place] [address] Dr. Jeffrey Thomas Lactate [Moles/Vol] 1.1 mmol/L Normal 0.4-1.9 [facility] Comment on above: Performed By: #### T 4LC #### [facility] [address] [place] [address] Dr. Jeffrey Thomas LIPASEon 05-22-2022 Lipase [Catalytic activity/Vol] 21.0 U/L Critically low 73.0-393.0 [facility] Comment on above: Performed By: #### C MP #### [facility] [address] [place] [address] Dr. Jeffrey Thomas PROF 14(COMP METB)on 023 Albumin [Mass/Vol] 3.2 g/dL Critically low 3.4-5.0 [facility] Comment on above: Performed By: #### C MP #### [facility] [address] [place] [address] Dr. Jeffrey Thomas Albumin/Globulin [Mass ratio] 1.0 {ratio} Normal [facility] Comment on above: Performed By: #### C MP #### [facility] [address] [address] [address] Jeffrey Thomas ALP [Catalytic activity/Vol] 133 U/L Critically high 46-116 [facility] Comment on above: Performed By: #### C MP #### [facility] [address] [place] [address] Dr. Jeffrey Thomas ALT [Catalytic activity/Vol] 14 U/L Normal 14-59 [facility] Comment on above: Performed By: #### C MP #### [facility] [address] [place] [address] Dr. Jeffrey Thomas Anion gap [Moles/Vol] 17.3 mmol/L Normal [facility] Comment on above: Performed By: #### C MP #### [facility] [address] [place] [address] Dr. Jeffrey Thomas AST [Catalytic activity/Vol] 18 U/L Normal 15-37 [facility] Comment on above: Performed By: #### C MP #### [facility] [address] [place] [address] Dr. Jeffrey Thomas Bilirubin [Mass/Vol] 0.5 mg/dL Normal 0.2-1.0 [facility] Comment on above: Performed By: #### C MP #### [facility] [address] [place] [address] Dr. Jeffrey Thomas Calcium [Mass/Vol] 9.0 mg/dL Normal 8.5-10.1 [facility] Comment on above: Performed By: #### C MP #### [facility] [address] [place] [address] Dr. Jeffrey Thomas Chloride [Moles/Vol] 107 mmol/L Normal 98-107 [facility] Comment on above: Performed By: #### C MP #### [facility] [address] [address] [address] Jeffrey Thomas CO2 [Moles/Vol] 20.0 mmol/L Critically low 21.0-32.0 [facility] Comment on above: Performed By: #### C MP #### [facility] [address] [address] [address] Jeffrey Thomas Creatinine [Mass/Vol] 1.05 mg/dL Critically high 0.55-1.02 [facility] Comment on above: Performed By: #### C MP #### [facility] [address] [address] [address] Jeffrey Thomas EGFR-AF BAHAMIAN >60 Normal >=60 [facility] Comment on above: Performed By: #### C MP #### [facility] [address] [address] [address] Jeffrey Thomas EGFR-NON AF BAHAMIAN 53 mL/min/1.73m2 Critically low >=60 [facility] Comment on above: Performed By: #### C MP #### [facility] [address] [address] [address] Jeffrey Thomas Globulin (S) [Mass/Vol] 3.1 g/dL Normal [facility] Comment on above: Performed By: #### C MP #### [facility] [address] [address] [address] Jeffrey Thomas Glucose [Mass/Vol] 117 mg/dL Critically high 74-106 [facility] Comment on above: Performed By: #### C MP #### [facility] [address] [address] [address] Jeffrey Thomas Potassium [Moles/Vol] 4.3 mmol/L Normal 3.5-5.1 [facility] Comment on above: Performed By: #### C MP #### [facility] [address] [address] [address] Jeffrey Thomas Protein [Mass/Vol] 6.3 g/dL Critically low 6.4-8.2 [facility] Comment on above: Performed By: #### C MP #### [facility] [address] [address] [address] Jeffrey Thomas Sodium [Moles/Vol] 140 mmol/L Normal 136-145 [facility] Comment on above: Performed By: #### C MP #### [facility] [address] [address] [address] Jeffrey Thomas Urea nitrogen [Mass/Vol] 20.0 mg/dL Critically high 7.0-18.0 [facility] Comment on above: Performed By: #### C MP #### [facility] [address] [place] [address] Dr. Jeffrey Thomas Urea nitrogen/Creatinine [Mass ratio] 19.0 mg/mg Normal [facility] Comment on above: Performed By: #### C MP #### [facility] [address] [place] [address] Dr. Jeffrey Thomas PROTIMEon 05-22-2022 INR Coag (PPP) [Relative time] 0.99 {INR} Normal [facility] Comment on above: Performed By: #### C MP #### [facility] [address] [address] [address] Jeffrey Thomas INR GUIDELINES SEE BELOW Normal [facility] Comment on above: Result Comment: MERARI RED INR: 2.0 - 3.0 CONDITIONS NOT LISTED BELOW 2.5 - 3.5 FOR PROSTHETIC HEART VALVE REPLACEMENT 2.5 - 3.5 RECURRENT THROMBOSIS Performed By: #### C MP #### [facility] [address] [place] [address] Dr. Jeffrey Thomas PT Coag (PPP) [Time] 10.5 s Normal 9.0-11.6 [facility] Comment on above: Performed By: #### C MP #### [facility] [address] [place] [address] Dr. Jeffrey Thomas PTTon 05-22-2022 aPTT Coag (Bld) [Time] 25.9 s Normal 22.3-36.2 [facility] Comment on above: Performed By: #### C MP #### [facility] [address] [place], [place] [address] Dr. Jeffrey Thomas TROPONIN, HIGH SENSITIVITYon 05-22-2022 HSTROP 6.1 pg/mL Normal 4.0-51.3 [facility] Comment on above: Result Comment: CUT- OFF POINTS HAVE BEEN ESTABLISHED BASED ON THE FOURTH UNIVERSAL DEFINITIONS OF MYOCARDIAL INFARCTION. THE UPPER REFERENCE LIMIT (URL) OF TROPONIN, DEFINED THE 99TH PERCENTILE OF cTnI DISTRIBUTION IN A REFERENCE POPULATION, HAS BEEN CONFIRMED THE DECISION THRESHOLD FOR LA DIAGNOSIS. Performed By: #### C MP #### [facility] [address] [place], [place] [address] Dr. Jeffrey Thomas US SINGLE QUAD RT [...] by: ABDIAS WEN Date: 2022-05-22 17:32 Normal [facility] XR CHEST 1 Von 05-22-2022 XR CHEST [...] by: MELLY SEO Date: 2022-05-22 15:32 Normal [facility] PT Coag (PPP) [Time]on 05-04 INR Coag (PPP) [Relative time] 1.7 {INR} Normal <=5.0 [facility] Comment on above: Result Comment: The recommended therapeutic INR range for most cardiac indications is 2.0-3.0 For high intensity therapy (i.e. mechanical heart valves), the recommended range is 2.5-3.5 Performed By: #### 5 902-2 #### [facility] [address] [place] [address] Prothrombin timeon 3 PT Coag (PPP) [Time] 18.8 s High 11.9-14.7 [facility] Comment on above: Performed By: #### 5 902-2 #### [facility] [address] [place] [address] Basic metabolic 2000 panelon 05-03-2022 Anion gap [Moles/Vol] 8 mmol/L Normal 6-18 [facility] Comment on above: Performed By: #### 2 4321-2 #### [facility] [address] [place] [address] Calcium [Mass/Vol] 8.6 mg/dL Low 8.9-10.3 [facility] Comment on above: Performed By: #### 2 4321-2 #### [facility] [address] [place] [address] Chloride [Moles/Vol] 109 mmol/L High 98-107 [facility] Comment on above: Performed By: #### 2 4321-2 #### [facility] [place] [facility] [address] [place] [address] CO2 [Moles/Vol] 25 mmol/L Normal 22-32 [facility] Comment on above: Performed By: #### 2 4321-2 #### [facility] [place] [facility] [address] [place] [address] Creatinine [Mass/Vol] 1.07 mg/dL Normal 0.60-1.30 [facility] Comment on above: Performed By: #### 2 4321-2 #### [facility] [place] [facility] [address] [place] [address] GFR/1.73 sq M.predicted among non-blacks MDRD (S/P/Bld) [Vol rate/Area] 58 mL/min/{1.73_m2} Low >=60 [facility] Comment on above: Result Comment: Effe ctive January 08, 2022, calculation based on the?Chronic Kidney Disease Epidemiology Collaboration (CKD-EPI) equation refit?without adjustment for race. Performed By: #### 2 4321-2 #### [facility] [place] [facility] [address] [place] [address] Glucose [Mass/Vol] 78 mg/dL Normal 70-99 [facility] Comment on above: Performed By: #### 2 4321-2 #### [facility] [place] [facility] [address] [place] [address] Potassium [Moles/Vol] 5.1 mmol/L Normal 3.6-5.1 [facility] Comment on above: Performed By: #### 2 4321-2 #### [facility] [place] [facility] [address] [place] [address] Sodium [Moles/Vol] 142 mmol/L Normal 136-145 [facility] Comment on above: Performed By: #### 2 4321-2 #### [facility] [place] [facility] [address] [place] [address] Urea nitrogen [Mass/Vol] 35 mg/dL High 8-20 [facility] Comment on above: Performed By: #### 2 4321-2 #### [facility] [place] [facility] [address] [place] [address] Urea nitrogen/Creatinine [Mass ratio] 32.7 mg/mg High 12.0-20.0 [facility] Comment on above: Performed By: #### 2 4321-2 #### [facility] [place] [facility] [address] [place] [address] Hemogram and platelets WO di fferential panel (Bld)on 05-03-2022 Erythrocyte distribution width (RBC) [Ratio] 16.4 % High 11.0-14.8 [facility] Comment on above: Performed By: #### 2 4321-2 #### [facility] [place] [facility] [address] [place] [address] Hematocrit (Bld) [Volume fraction] 33.4 % Low 34.3-47.9 [facility] Comment on above: Performed By: #### 2 4321-2 #### [facility] [place] [facility] [address] [place] [address] Hemoglobin (Bld) [Mass/Vol] 10.0 g/dL Low 12.0-16.0 [facility] Comment on above: Performed By: #### 2 1-2 #### [facility] [place] [facility] [address] [place] [address] MCH 27.2 pcg Normal 27.0-34.0 [facility] Comment on above: Performed By: #### 2 4321-2 #### [facility] [place] [facility] [address] [place] [address] MCHC (RBC) [Mass/Vol] 29.9 g/dL Low 30.8-35.3 [facility] Comment on above: Performed By: #### 2 4321-2 #### [facility] [place] [facility] [address] [place] [address] 70421 MCV (RBC) [Entitic vol] 91.0 fL Normal 80.0-97.0 [facility] Comment on above: Performed By: #### 2 4321-2 #### [facility] [place] [facility] [address] [place] [address] Platelet mean volume (Bld) [Entitic vol] 11.6 fL Normal 6.2-12.1 [facility] Comment on above: Performed By: #### 2 4321-2 #### [facility] [place] [facility] [address] [place] [address] 19145 Platelets (Bld) [#/Vol] 283 10*3/uL Normal 142-424 [facility] Comment on above: Performed By: #### 2 4321-2 #### [facility] [place] [facility] [address] [place] [address] 91368 RBC (Bld) [#/Vol] 3.67 10*6/uL Low 3.74-5.34 [facility] Comment on above: Performed By: #### 2 4321-2 #### [facility] [place] [address] [place] [address] 21531 WBC (Bld) [#/Vol] 5.5 10*3/uL Normal 4.6-10.2 [facility] Comment on above: Performed By: #### 2 4321-2 #### [facility] [place] [address] [place] [address] 74415 PT Coag (PPP) [Time]on 05-03 INR Coag (PPP) [Relative time] 1.6 {INR} Normal <=5.0 [facility] Comment on above: Result Comment: The recommended therapeutic INR range for most cardiac indications is 2.0-3.0 For high intensity therapy (i.e. mechanical heart valves), the recommended range is 2.5-3.5 Performed By: #### 5 902-2 #### [facility] [place] [address] [place] [address] 23928 Prothrombin timeon PT Coag (PPP) [Time] 17.7 s High 11.9-14.7 [facility] Comment on above: Performed By: #### 5 902-2 #### [facility] ([facility] [address] [place] [address] Nuclear IgG IA Ql (S)on 04-04 Bacteria identified Cx Nom (U) 1 ORGANISM 202 Abnormal >517350 CFU/mL Escherichia coli The organism value for [...] Islt <=20 ug/ml Susceptible Invalid Interpretation Code [facility] Comment on above: Performed By: #### 2 4321-2 #### [facility] [address] [place] [address] Bacteria, Urine Many Abnormal None [facility] Comment on above: Performed By: #### 2 4321-2 #### [facility] [address] [place] [address] Bilirubin, Urine Negative Normal Negative [facility] Comment on above: Performed By: #### 2 4321-2 #### [facility] [address] [place] [address] Blood, Urine 3+ Abnormal Negative [facility] Comment on above: Performed By: #### 2 4321-2 #### [facility] [place] [address] [place] [address] Clarity (U) Slightly Cloudy Abnormal Clear [facility] Comment on above: Performed By: #### 2 4321-2 #### [facility] [place] [address] [place] [address] Color (U) Renata Abnormal Yellow [facility] Comment on above: Performed By: #### 2 4321-2 #### [facility] [place] [address] [place] [address] Glucose Ql (U) Normal Normal Normal [facility] Comment on above: Performed By: #### 2 4321-2 #### [facility] [place] [address] [place] [address] Ketones Ql (U) Negative Normal Negative [facility] Comment on above: Performed By: #### 2 4321-2 #### [facility] [place] [address] [place] [address] Leukocytes, Urine 250 WBCs/mcL Abnormal Negative [facility] Comment on above: Performed By: #### 2 1-2 #### [facility] [place] [address] [place] [address] Mucus, UA Rare Abnormal None [facility] Comment on above: Performed By: #### 2 4321-2 #### [facility] [place] [address] [place] [address] Nitrite, Urine Negative Normal Negative [facility] Comment on above: Performed By: #### 2 4321-2 #### [facility] [place] [address] [place] [address] pH (U) 6.0 [pH] Normal 5.0-8.0 [facility] Comment on above: Performed By: #### 2 4321-2 #### [facility] [place] [address] [place] [address] Protein (U) [Mass/Vol] 30 mg/dL Abnormal Negative [facility] Comment on above: Performed By: #### 2 4321-2 #### [facility] [address] [place] [address] 43075 RBC LM.HPF (Urine sed) [#/Area] 362 /[HPF] High 0-5 [facility] Comment on above: Performed By: #### 2 4321-2 #### [facility] [address] [place] [address] 91605 Specific Gibson Urine 1.012 Normal 1.002-1.030 [facility] Comment on above: Performed By: #### 2 4321-2 #### [facility] [address] [place] [address] 79209 Squamous Epithelial, Urine Rare Abnormal None [facility] Comment on above: Performed By: #### 2 4321-2 #### [facility] [address] [place] [address] 92806 Urobilinogen, Urine Normal Normal Normal [facility] Comment on above: Performed By: #### 2 4321-2 #### [facility] [address] [place] [address] 41169 WBC LM.HPF (Urine sed) [#/Area] 47 /[HPF] High 0-5 [facility] Comment on above: Performed By: #### 2 4321-2 #### [facility] [address] [place] [address] 03011 PT Coag (PPP) [Time]on 05-02 INR Coag (PPP) [Relative time] 1.4 {INR} Normal <=5.0 [facility] Comment on above: Result Comment: The recommended therapeutic INR range for most cardiac indications is 2.0-3.0 For high intensity therapy (i.e. mechanical heart valves), the recommended range is 2.5-3.5 Performed By: #### 5 902-2 #### [facility] [address] [place] [address] 69348 Prothrombin timeon 3 PT Coag (PPP) [Time] 15.9 s High 11.9-14.7 [facility] Comment on above: Performed By: #### 5 902-2 #### [facility] [place] [facility] [address] [place] [address] Basic metabolic 2000 panelon 05-01-2022 Anion gap [Moles/Vol] 8 mmol/L Normal 6-18 [facility] Comment on above: Performed By: #### 5 902-2 #### [facility] [place] [facility] [address] [place] [address] 92245 Calcium [Mass/Vol] 8.6 mg/dL Low 8.9-10.3 [facility] Comment on above: Performed By: #### 5 902-2 #### [facility] [place] [facility] [address] [place] [address] 59001 Chloride [Moles/Vol] 108 mmol/L High 98-107 [facility] Comment on above: Performed By: #### 5 902-2 #### [facility] [place] [facility] [address] [place] [address] 05588 CO2 [Moles/Vol] 25 mmol/L Normal 22-32 [facility] Comment on above: Performed By: #### 5 902-2 #### [facility] [place] [facility] [address] [place] [address] Creatinine [Mass/Vol] 0.97 mg/dL Normal 0.60-1.30 [facility] Comment on above: Performed By: #### 5 902-2 #### [facility] [place] [facility] [address] [place] [address] GFR/1.73 sq M.predicted among non-blacks MDRD (S/P/Bld) [Vol rate/Area] 65 mL/min/{1.73_m2} Normal >=60 [facility] Comment on above: Result Comment: Effe ctive January 08, 2022, calculation based on the?Chronic Kidney Disease Epidemiology Collaboration (CKD-EPI) equation refit?without adjustment for race. Performed By: #### 5 902-2 #### [facility] [place] [facility] [address] [place] [address] 59406 Glucose [Mass/Vol] 82 mg/dL Normal 70-99 [facility] Comment on above: Performed By: #### 5 902-2 #### [facility] [place] [facility] [address] [place] [address] 38558 Potassium [Moles/Vol] 4.5 mmol/L Normal 3.6-5.1 [facility] Comment on above: Performed By: #### 5 902-2 #### [facility] [place] [facility] [address] [place] [address] 16171 Sodium [Moles/Vol] 141 mmol/L Normal 136-145 [facility] Comment on above: Performed By: #### 5 902-2 #### [facility] [place] [facility] [address] [place] [address] 59663 Urea nitrogen [Mass/Vol] 34 mg/dL High 8-20 [facility] Comment on above: Performed By: #### 5 902-2 #### [facility] [place] [facility] [address] [place] [address] 17928 Urea nitrogen/Creatinine [Mass ratio] 35.1 mg/mg High 12.0-20.0 [facility] Comment on above: Performed By: #### 5 902-2 #### [facility] [place] [facility] [address] [place] [address] 13743 Hemogram and platelets WO di fferential panel (Bld)on 05-01-2022 Erythrocyte distribution width (RBC) [Ratio] 16.5 % High 11.0-14.8 [facility] Comment on above: Performed By: #### 2 4321-2 #### [facility] [place] [facility] [address] [place] [address] 91922 Hematocrit (Bld) [Volume fraction] 33.7 % Low 34.3-47.9 [facility] Comment on above: Performed By: #### 2 4321-2 #### [facility] [place] [facility] [address] [place] [address] 66403 Hemoglobin (Bld) [Mass/Vol] 10.3 g/dL Low 12.0-16.0 [facility] Comment on above: Performed By: #### 2 4321-2 #### [facility] [place] [facility] [address] [place] [address] 09014 MCH 28.1 pcg Normal 27.0-34.0 [facility] Comment on above: Performed By: #### 2 4320-2 #### [facility] [place] [facility] [address] [place] [address] 45699 MCHC (RBC) [Mass/Vol] 30.6 g/dL Low 30.8-35.3 [facility] Comment on above: Performed By: #### 2 4320-2 #### [facility] [place] [facility] [address] [place] [address] 68020 MCV (RBC) [Entitic vol] 92.1 fL Normal 80.0-97.0 [facility] Comment on above: Performed By: #### 2 1-2 #### [facility] [place] [facility] [address] [place] [address] 53923 Platelet mean volume (Bld) [Entitic vol] 11.6 fL Normal 6.2-12.1 [facility] Comment on above: Performed By: #### 2 1-2 #### [facility] [place] [facility] [address] [place] [address] 27042 Platelets (Bld) [#/Vol] 275 10*3/uL Normal 142-424 [facility] Comment on above: Performed By: #### 2 1-2 #### [facility] [place] [facility] [address] [place] [address] 33415 RBC (Bld) [#/Vol] 3.66 10*6/uL Low 3.74-5.34 [facility] Comment on above: Performed By: #### 2 1-2 #### [facility] [address] [place] [address] WBC (Bld) [#/Vol] 5.9 10*3/uL Normal 4.6-10.2 [facility] Comment on above: Performed By: #### 2 4321-2 #### [facility] [address] [place] [address] 14394 PT Coag (PPP) [Time]on 05-01 INR Coag (PPP) [Relative time] 1.3 {INR} Normal <=5.0 [facility] Comment on above: Result Comment: The recommended therapeutic INR range for most cardiac indications is 2.0-3.0 For high intensity therapy (i.e. mechanical heart valves), the recommended range is 2.5-3.5 Performed By: #### 2 4321-2 #### [facility] [address] [place] [address] 43037 Prothrombin timeon 3 PT Coag (PPP) [Time] 15.6 s High 11.9-14.7 [facility] Comment on above: Performed By: #### 2 4321-2 #### [facility] [address] [place] [address] 06425 PT Coag (PPP) [Time]on 04-30 INR Coag (PPP) [Relative time] 1.4 {INR} Normal <=5.0 [facility] Comment on above: Result Comment: The recommended therapeutic INR range for most cardiac indications is 2.0-3.0 For high intensity therapy (i.e. mechanical heart valves), the recommended range is 2.5-3.5 Performed By: #### 5 902-2 #### [facility] [address] [place] [address] Prothrombin timeon 3 PT Coag (PPP) [Time] 16.0 s High 11.9-14.7 [facility] Comment on above: Performed By: #### 5 902-2 #### [facility] [place] [facility] [address] [place] [address] Basic metabolic 2000 panelon 04-29-2022 Anion gap [Moles/Vol] 6 mmol/L Normal 6-18 [facility] Comment on above: Performed By: #### 5 902-2 #### [facility] [place] [facility] [address] [place] [address] 97876 Calcium [Mass/Vol] 8.7 mg/dL Low 8.9-10.3 [facility] Comment on above: Performed By: #### 5 902-2 #### [facility] [place] [facility] [address] [place] [address] 09155 Chloride [Moles/Vol] 103 mmol/L Normal 98-107 [facility] Comment on above: Performed By: #### 5 902-2 #### [facility] [place] [facility] [address] [place] [address] 35320 CO2 [Moles/Vol] 28 mmol/L Normal 22-32 [facility] Comment on above: Performed By: #### 5 902-2 #### [facility] [place] [facility] [address] [place] [address] 53788 Creatinine [Mass/Vol] 1.14 mg/dL Normal 0.60-1.30 [facility] Comment on above: Performed By: #### 5 902-2 #### [facility] [place] [facility] [address] [place] [address] 46329 GFR/1.73 sq M.predicted among non-blacks MDRD (S/P/Bld) [Vol rate/Area] 54 mL/min/{1.73_m2} Low >=60 [facility] Comment on above: Result Comment: Effe ctive January 08, 2022, calculation based on the?Chronic Kidney Disease Epidemiology Collaboration (CKD-EPI) equation refit?without adjustment for race. Performed By: #### 5 902-2 #### [facility] [place] [facility] [address] [place] [address] 37498 Glucose [Mass/Vol] 90 mg/dL Normal 70-99 [facility] Comment on above: Performed By: #### 5 902-2 #### [facility] [place] [facility] [address] [place] [address] 84275 Potassium [Moles/Vol] 4.8 mmol/L Normal 3.6-5.1 [facility] Comment on above: Performed By: #### 5 902-2 #### [facility] [place] [facility] [address] [place] [address] 74678 Sodium [Moles/Vol] 137 mmol/L Normal 136-145 [facility] Comment on above: Performed By: #### 5 902-2 #### [facility] [address] [place] [address] 25461 Urea nitrogen [Mass/Vol] 35 mg/dL High 8-20 [facility] Comment on above: Performed By: #### 5 902-2 #### [facility] [place] [facility] [address] [place] [address] 32180 Urea nitrogen/Creatinine [Mass ratio] 30.7 mg/mg High 12.0-20.0 [facility] Comment on above: Performed By: #### 5 902-2 #### [facility] [address] [place] [address] 48225 PT Coag (PPP) [Time]on 04-29 INR Coag (PPP) [Relative time] 1.4 {INR} Normal <=5.0 [facility] Comment on above: Result Comment: The recommended therapeutic INR range for most cardiac indications is 2.0-3.0 For high intensity therapy (i.e. mechanical heart valves), the recommended range is 2.5-3.5 Performed By: #### 5 902-2 #### [facility] [place] [facility] [address] [place] [address] 23293 Prothrombin timeon PT Coag (PPP) [Time] 16.5 s High 11.9-14.7 [facility] Comment on above: Performed By: #### 5 902-2 #### [facility] [place] [facility] [address] [place] [address] PT Coag (PPP) [Time]on 04-28 INR Coag (PPP) [Relative time] 1.3 {INR} Normal <=5.0 [facility] Comment on above: Result Comment: The recommended therapeutic INR range for most cardiac indications is 2.0-3.0 For high intensity therapy (i.e. mechanical heart valves), the recommended range is 2.5-3.5 Performed By: #### 5 902-2 #### [facility] [place] [facility] [address] [place] [address] 67898 Prothrombin timeon PT Coag (PPP) [Time] 15.6 s High 11.9-14.7 [facility] Comment on above: Performed By: #### 5 902-2 #### [facility] [place] [facility] [address] [place] [address] 76052 Basic metabolic 2000 panelon 04-27-2022 Anion gap [Moles/Vol] 10 mmol/L Normal 6-18 [facility] Comment on above: Performed By: #### 2 4321-2 #### [facility] [address] [place] [address] 96862 Calcium [Mass/Vol] 8.4 mg/dL Low 8.9-10.3 [facility] Comment on above: Performed By: #### 2 4321-2 #### [facility] [place] [facility] [address] [place] [address] 24470 Chloride [Moles/Vol] 105 mmol/L Normal 98-107 [facility] Comment on above: Performed By: #### 2 4321-2 #### [facility] [address] [place] [address] 99437 CO2 [Moles/Vol] 22 mmol/L Normal 22-32 [facility] Comment on above: Performed By: #### 2 4321-2 #### [facility] [address] [place] [address] Creatinine [Mass/Vol] 1.12 mg/dL Normal 0.60-1.30 [facility] Comment on above: Performed By: #### 2 4321-2 #### [facility] [place] [facility] [address] [place] [address] GFR/1.73 sq M.predicted among non-blacks MDRD (S/P/Bld) [Vol rate/Area] 55 mL/min/{1.73_m2} Low >=60 [facility] Comment on above: Result Comment: Effe ctive January 08, 2022, calculation based on the?Chronic Kidney Disease Epidemiology Collaboration (CKD-EPI) equation refit?without adjustment for race. Performed By: #### 2 4321-2 #### [facility] [place] [facility] [address] [place] [address] Glucose [Mass/Vol] 82 mg/dL Normal 70-99 [facility] Comment on above: Performed By: #### 2 4321-2 #### [facility] [place] [facility] [address] [place] [address] Potassium [Moles/Vol] 5.6 mmol/L High 3.6-5.1 [facility] Comment on above: Performed By: #### 2 4321-2 #### [facility] [place] [facility] [address] [place] [address] Sodium [Moles/Vol] 137 mmol/L Normal 136-145 [facility] Comment on above: Performed By: #### 2 4321-2 #### [facility] [place] [facility] [address] [place] [address] Urea nitrogen [Mass/Vol] 35 mg/dL High 8-20 [facility] Comment on above: Performed By: #### 2 4321-2 #### [facility] [place] [facility] [address] [place] [address] Urea nitrogen/Creatinine [Mass ratio] 31.3 mg/mg High 12.0-20.0 [facility] Comment on above: Performed By: #### 2 4321-2 #### [facility] [address] [place] [address] 86235 PT Coag (PPP) [Time]on 04-27 INR Coag (PPP) [Relative time] 1.2 {INR} Normal <=5.0 [facility] Comment on above: Result Comment: The recommended therapeutic INR range for most cardiac indications is 2.0-3.0 For high intensity therapy (i.e. mechanical heart valves), the recommended range is 2.5-3.5 Performed By: #### 5 902-2 #### [facility] [address] [place] [address] 57290 Prothrombin timeon 3 PT Coag (PPP) [Time] 14.5 s Normal 11.9-14.7 [facility] Comment on above: Performed By: #### 5 902-2 #### [facility] [address] [place] [address] 08206 PT Coag (PPP) [Time]on 04-26 INR Coag (PPP) [Relative time] 1.2 {INR} Normal <=5.0 [facility] Comment on above: Result Comment: The recommended therapeutic INR range for most cardiac indications is 2.0-3.0 For high intensity therapy (i.e. mechanical heart valves), the recommended range is 2.5-3.5 Performed By: #### 2 4321-2 #### [facility] [address] [place] [address] 82165 Prothrombin timeon 3 PT Coag (PPP) [Time] 14.3 s Normal 11.9-14.7 [facility] Comment on above: Performed By: #### 2 4321-2 #### [facility] [address] [place] [address] 20149 Basic metabolic 2000 panelon 04-25-2022 Anion gap [Moles/Vol] 7 mmol/L Normal 6-18 [facility] Comment on above: Performed By: #### 2 4321-2 #### [facility] [place] [facility] [address] [place] [address] 65365 Calcium [Mass/Vol] 8.5 mg/dL Low 8.9-10.3 [facility] Comment on above: Performed By: #### 2 4321-2 #### [facility] [place] [facility] [address] [place] [address] 73433 Chloride [Moles/Vol] 104 mmol/L Normal 98-107 [facility] Comment on above: Performed By: #### 2 4321-2 #### [facility] [place] [facility] [address] [place] [address] [id number] CO2 [Moles/Vol] 30 mmol/L Normal 22-32 [facility] Comment on above: Performed By: #### 2 4321-2 #### [facility] [place] ([facility] [address] [place] [address] 44054 Creatinine [Mass/Vol] 1.00 mg/dL Normal 0.60-1.30 [facility] Comment on above: Performed By: #### 2 4321-2 #### [facility] [place] ([facility] [address] [place] [address] 52659 GFR/1.73 sq M.predicted among non-blacks MDRD (S/P/Bld) [Vol rate/Area] 63 mL/min/{1.73_m2} Normal >=60 [facility] Comment on above: Result Comment: Effe ctive January 08, 2022, calculation based on the?Chronic Kidney Disease Epidemiology Collaboration (CKD-EPI) equation refit?without adjustment for race. Performed By: #### 2 4321-2 #### [facility] [place] ([facility] [address] [place] [address] [id number] Glucose [Mass/Vol] 89 mg/dL Normal 70-99 [facility] Comment on above: Performed By: #### 2 4321-2 #### [facility] [place] ([facility] [address] [place] [address], [place] [address] Potassium [Moles/Vol] 5.2 mmol/L High 3.6-5.1 [facility] Comment on above: Performed By: #### 2 4321-2 #### [facility] [place] [address] [place] [address] 26351 Sodium [Moles/Vol] 141 mmol/L Normal 136-145 [facility] Comment on above: Performed By: #### 2 4321-2 #### [facility] [place] [address] [place] [address] 90424 Urea nitrogen [Mass/Vol] 25 mg/dL High 8-20 [facility] Comment on above: Performed By: #### 2 4321-2 #### [facility] [place] [address] [place] [address] 70463 Urea nitrogen/Creatinine [Mass ratio] 25.0 mg/mg High 12.0-20.0 [facility] Comment on above: Performed By: #### 2 4321-2 #### [facility] [place] [address] [place] [address] 87600 PT Coag (PPP) [Time]on 04-25 INR Coag (PPP) [Relative time] 1.2 {INR} Normal <=5.0 [facility] Comment on above: Result Comment: The recommended therapeutic INR range for most cardiac indications is 2.0-3.0 For high intensity therapy (i.e. mechanical heart valves), the recommended range is 2.5-3.5 Performed By: #### 5 902-2 #### [facility] [place] [address] [place] [address] 09650 Prothrombin timeon PT Coag (PPP) [Time] 14.0 s Normal 11.9-14.7 [facility] Comment on above: Performed By: #### 5 902-2 #### [facility] [place] [address] [place] [address] 80294 Basic metabolic 2000 panelon 04-24-2022 Anion gap [Moles/Vol] 7 mmol/L Normal 6-18 [facility] Comment on above: Performed By: #### 2 4321-2 #### [facility] [place] [address] [place] [address] Calcium [Mass/Vol] 8.7 mg/dL Low 8.9-10.3 [facility] Comment on above: Performed By: #### 2 4321-2 #### [facility] [place] [facility] [address] [place] [address] 43370 Chloride [Moles/Vol] 106 mmol/L Normal 98-107 [facility] Comment on above: Performed By: #### 2 4321-2 #### [facility] [place] [facility] [address] [place] [address] 63142 CO2 [Moles/Vol] 28 mmol/L Normal 22-32 [facility] Comment on above: Performed By: #### 2 4321-2 #### [facility] [place] [facility] [address] [place] [address] 61691 Creatinine [Mass/Vol] 1.14 mg/dL Normal 0.60-1.30 [facility] Comment on above: Performed By: #### 2 4321-2 #### [facility] [address] [place] [address] 77828 GFR/1.73 sq M.predicted among non-blacks MDRD (S/P/Bld) [Vol rate/Area] 54 mL/min/{1.73_m2} Low >=60 [facility] Comment on above: Result Comment: Effe ctive January 08, 2022, calculation based on the?Chronic Kidney Disease Epidemiology Collaboration (CKD-EPI) equation refit?without adjustment for race. Performed By: #### 2 4321-2 #### [facility] [place] [address] [place] [address] 15560 Glucose [Mass/Vol] 95 mg/dL Normal 70-99 [facility] Comment on above: Performed By: #### 2 4321-2 #### [facility] [address] [place] [address] Potassium [Moles/Vol] 5.3 mmol/L High 3.6-5.1 [facility] Comment on above: Performed By: #### 2 4321-2 #### [facility] [place] [facility] [address] [place] [address] 47623 Sodium [Moles/Vol] 141 mmol/L Normal 136-145 [facility] Comment on above: Performed By: #### 2 4321-2 #### [facility] [address] [place] [address] 72096 Urea nitrogen [Mass/Vol] 25 mg/dL High 8-20 [facility] Comment on above: Performed By: #### 2 4321-2 #### [facility] ([facility]) [facility] [address] [place] [address] 22220 Urea nitrogen/Creatinine [Mass ratio] 21.9 mg/mg High 12.0-20.0 [facility] Comment on above: Performed By: #### 2 4321-2 #### [facility] ([facility]) [facility] [address] [place] [address] 43132 Hemogram and platelets WO di fferential panel (Bld)on 04-24-2022 Erythrocyte distribution width (RBC) [Ratio] 16.9 % High 11.0-14.8 [facility] Comment on above: Performed By: #### 2 4317-0 #### [facility] [place] [facility] [address] [place] [address] 76707 Hematocrit (Bld) [Volume fraction] 35.3 % Normal 34.3-47.9 [facility] Comment on above: Performed By: #### 2 4317-0 #### [facility] [place] [facility] [address] [place] [address] 99696 Hemoglobin (Bld) [Mass/Vol] 10.9 g/dL Low 12.0-16.0 [facility] Comment on above: Performed By: #### 2 4317-0 #### [facility] ([facility] [address] [place] [address] Immature Platelet Fraction 14.0 % High 1.4-10.8 [facility] Comment on above: Performed By: #### 2 4317-0 #### [facility] [place] [address] [place] [address] MCH 28.9 pcg Normal 27.0-34.0 [facility] Comment on above: Performed By: #### 2 7-0 #### [facility] [place] [address] [place] [address] 76833 MCHC (RBC) [Mass/Vol] 30.9 g/dL Normal 30.8-35.3 [facility] Comment on above: Performed By: #### 2 4317-0 #### [facility] [place] [address] [place] [address] 23360 MCV (RBC) [Entitic vol] 93.6 fL Normal 80.0-97.0 [facility] Comment on above: Performed By: #### 2 4317-0 #### [facility] [place] [address] [place] [address] 13015 Platelet mean volume (Bld) [Entitic vol] 12.9 fL High 6.2-12.1 [facility] Comment on above: Performed By: #### 2 4317-0 #### [facility] [place] [address] [place] [address] 55145 Platelets (Bld) [#/Vol] 160 10*3/uL Normal 142-424 [facility] Comment on above: Performed By: #### 2 4317-0 #### [facility] [place] [address] [place] [address] 03053 RBC (Bld) [#/Vol] 3.77 10*6/uL Normal 3.74-5.34 [facility] Comment on above: Performed By: #### 2 4317-0 #### [facility] [place] [address] [place] [address] 40532 WBC (Bld) [#/Vol] 7.7 10*3/uL Normal 4.6-10.2 [facility] Comment on above: Performed By: #### 2 4317-0 #### [facility] [place] [address] [place] [address] 58907 PT Coag (PPP) [Time]on 04-24 INR Coag (PPP) [Relative time] 1.1 {INR} Normal <=5.0 [facility] Comment on above: Result Comment: The recommended therapeutic INR range for most cardiac indications is 2.0-3.0 For high intensity therapy (i.e. mechanical heart valves), the recommended range is 2.5-3.5 Performed By: #### 2 4321-2 #### [facility] [place] [address] [place] [address] 49109 Prothrombin timeon PT Coag (PPP) [Time] 13.9 s Normal 11.9-14.7 [facility] Comment on above: Performed By: #### 2 4321-2 #### [facility] [place] [address] [place] [address] 78717 Basic metabolic 2000 panelon 04-23-2022 Anion gap [Moles/Vol] 8 mmol/L Normal 6-18 [facility] Comment on above: Performed By: #### 2 4321-2 #### [facility] [place] [address] [place] [address] 40916 Calcium [Mass/Vol] 8.5 mg/dL Low 8.9-10.3 [facility] Comment on above: Performed By: #### 2 4321-2 #### [facility] [place] [address] [place] [address] 26952 Chloride [Moles/Vol] 106 mmol/L Normal 98-107 [facility] Comment on above: Performed By: #### 2 4321-2 #### [facility] [place] [address] [place] [address] 15462 CO2 [Moles/Vol] 28 mmol/L Normal 22-32 [facility] Comment on above: Performed By: #### 2 4321-2 #### [facility] [place] [address] [place] [address] 65721 Creatinine [Mass/Vol] 1.01 mg/dL Normal 0.60-1.30 [facility] Comment on above: Performed By: #### 2 4321-2 #### [facility] [place] [address] [place] [address] 59377 GFR/1.73 sq M.predicted among non-blacks MDRD (S/P/Bld) [Vol rate/Area] 62 mL/min/{1.73_m2} Normal >=60 [facility] Comment on above: Result Comment: Effe ctive January 08, 2022, calculation based on the?Chronic Kidney Disease Epidemiology Collaboration (CKD-EPI) equation refit?without adjustment for race. Performed By: #### 2 4321-2 #### [facility] [place] [facility] [address] [place] [address] 37424 Glucose [Mass/Vol] 108 mg/dL High 70-99 [facility] Comment on above: Performed By: #### 2 4321-2 #### [facility] [address] [place] [address] 38689 Potassium [Moles/Vol] 5.0 mmol/L Normal 3.6-5.1 [facility] Comment on above: Performed By: #### 2 4321-2 #### [facility] [place] [facility] [address] [place] [address] 61044 Sodium [Moles/Vol] 142 mmol/L Normal 136-145 [facility] Comment on above: Performed By: #### 2 4321-2 #### [facility] [place] [facility] [address] [place] [address] 03152 Urea nitrogen [Mass/Vol] 23 mg/dL High 8-20 [facility] Comment on above: Performed By: #### 2 4321-2 #### [facility] ([facility]) [facility] [address] [place] [address] 60484 Urea nitrogen/Creatinine [Mass ratio] 22.8 mg/mg High 12.0-20.0 [facility] Comment on above: Performed By: #### 2 4321-2 #### [facility] [place] [facility] [address] [place] [address] 65322 Hemogram and platelets WO di fferential panel (Bld)on 04-23-2022 Basophils (Bld) [#/Vol] 0.06 10*3/uL Normal 0.00-0.20 [facility] Comment on above: Performed By: #### 2 4321-2 #### [facility] ([facility]) [facility] [address] [place] [address] 63063 Basophils/100 WBC (Bld) 0.7 % Normal 0.0-2.0 [facility] Comment on above: Performed By: #### 2 4321-2 #### [facility] ([facility] [address] [place] [address] 52553 Eosinophils (Bld) [#/Vol] 0.17 10*3/uL Normal 0.00-0.70 [facility] Comment on above: Performed By: #### 2 4321-2 #### [facility] ([facility]) [facility] [address] [place] [address] 07637 Eosinophils/100 WBC (Bld) 2.1 % Normal 0.0-7.0 [facility] Comment on above: Performed By: #### 2 4321-2 #### [facility] ([facility]) [facility] [address] [place] [address] 74565 Erythrocyte distribution width (RBC) [Ratio] 17.0 % High 11.0-14.8 [facility] Comment on above: Performed By: #### 2 4321-2 #### [facility] ([facility]) [facility] [address] [place] [address] 19530 Hematocrit (Bld) [Volume fraction] 34.1 % Low 34.3-47.9 [facility] Comment on above: Performed By: #### 2 4321-2 #### [facility] [address] [place] [address] 17248 Hemoglobin (Bld) [Mass/Vol] 10.4 g/dL Low 12.0-16.0 [facility] Comment on above: Performed By: #### 2 4320-2 #### [facility] [place] [facility] [address] [place] [address] 68417 Immature granulocytes (Bld) [#/Vol] 0.02 10*3/uL Normal 0.00-0.10 [facility] Comment on above: Performed By: #### 2 4320-2 #### [facility] ([facility] [address] [place] [address] 47029 Immature granulocytes/100 WBC (Bld) 0.2 % Normal 0.0-1.2 [facility] Comment on above: Performed By: #### 2 4320-2 #### [facility] ([facility] [address] [place] [address] 72100 Lymphocytes (Bld) [#/Vol] 2.24 10*3/uL Normal 1.00-4.80 [facility] Comment on above: Performed By: #### 2 4320-2 #### [facility] [address] [place] [address] 90408 Lymphocytes/100 WBC (Bld) 27.4 % Normal 17.9-49.6 [facility] Comment on above: Performed By: #### 2 1-2 #### [facility] [address] [place] [address] 51185 MCH 28.4 pcg Normal 27.0-34.0 [facility] Comment on above: Performed By: #### 2 1-2 #### [facility] ([facility] [address] [place] [address] 61055 MCHC (RBC) [Mass/Vol] 30.5 g/dL Low 30.8-35.3 [facility] Comment on above: Performed By: #### 2 4321-2 #### [facility] [place] [facility] [address] [place] [address] MCV (RBC) [Entitic vol] 93.2 fL Normal 80.0-97.0 [facility] Comment on above: Performed By: #### 2 4321-2 #### [facility] [place] [facility] [address] [place] [address] Monocytes (Bld) [#/Vol] 0.98 10*3/uL High 0.00-0.90 [facility] Comment on above: Performed By: #### 2 1-2 #### [facility] [place] [address] [place] [address] 35318 Monocytes/100 WBC (Bld) 12.0 % Normal 0.0-12.0 [facility] Comment on above: Performed By: #### 2 1-2 #### [facility] ([facility] [address] [place] [address] 03303 Neutrophils Absolute 4.71 K/mcL Normal 1.80-7.70 [facility] Comment on above: Performed By: #### 2 1-2 #### [facility] [place] [facility] [address] [place] [address] 91113 Neutrophils/100 WBC (Bld) 57.6 % Normal 38.1-75.5 [facility] Comment on above: Performed By: #### 2 1-2 #### [facility] [place] [facility] [address] [place] [address] 56655 Platelet mean volume (Bld) [Entitic vol] 13.0 fL High 6.2-12.1 [facility] Comment on above: Performed By: #### 2 1-2 #### [facility] [place] [facility] [address] [place] [address] Platelets (Bld) [#/Vol] 175 10*3/uL Normal 142-424 [facility] Comment on above: Performed By: #### 2 4321-2 #### [facility] [place] [facility] [address] [place] [address] RBC (Bld) [#/Vol] 3.66 10*6/uL Low 3.74-5.34 [facility] Comment on above: Performed By: #### 2 4321-2 #### [facility] [place] [facility] [address] [place] [address] WBC (Bld) [#/Vol] 8.2 10*3/uL Normal 4.6-10.2 [facility] Comment on above: Performed By: #### 2 4321-2 #### [facility] [address] [place] [address] 43320 PT Coag (PPP) [Time]on 04-23 INR Coag (PPP) [Relative time] 1.1 {INR} Normal <=5.0 [facility] Comment on above: Result Comment: The recommended therapeutic INR range for most cardiac indications is 2.0-3.0 For high intensity therapy (i.e. mechanical heart valves), the recommended range is 2.5-3.5 Performed By: #### 2 4321-2 #### [facility] [address] [place] [address] Prothrombin timeon PT Coag (PPP) [Time] 13.4 s Normal 11.9-14.7 [facility] Comment on above: Performed By: #### 2 4321-2 #### [facility] [address] [place] [address] 26487 Basic metabolic 2000 panelon 04-22-2022 Anion gap [Moles/Vol] 6 mmol/L Normal 6-18 [facility] Comment on above: Performed By: #### 1 988-5 #### [facility] [address] [place] [address] Calcium [Mass/Vol] 8.3 mg/dL Low 8.9-10.3 [facility] Comment on above: Performed By: #### 1 988-5 #### [facility] [address] [place] [address] Chloride [Moles/Vol] 107 mmol/L Normal 98-107 [facility] Comment on above: Performed By: #### 1 988-5 #### [facility] [address] [place] [address] CO2 [Moles/Vol] 25 mmol/L Normal 22-32 [facility] Comment on above: Performed By: #### 1 988-5 #### [facility] [address] [place] [address] Creatinine [Mass/Vol] 1.06 mg/dL Normal 0.60-1.30 [facility] Comment on above: Performed By: #### 1 988-5 #### [facility] [address] [place] [address] 18011 GFR/1.73 sq M.predicted among non-blacks MDRD (S/P/Bld) [Vol rate/Area] 59 mL/min/{1.73_m2} Low >=60 [facility] Comment on above: Result Comment: Effe ctive January 08, 2022, calculation based on the?Chronic Kidney Disease Epidemiology Collaboration (CKD-EPI) equation refit?without adjustment for race. Performed By: #### 1 988-5 #### [facility] [address] [place] [address] Glucose [Mass/Vol] 104 mg/dL High 70-99 [facility] Comment on above: Performed By: #### 1 988-5 #### [facility] [address] [place] [address] 89561 Potassium [Moles/Vol] 4.7 mmol/L Normal 3.6-5.1 [facility] Comment on above: Performed By: #### 1 988-5 #### [facility] [address] [place] [address] Sodium [Moles/Vol] 138 mmol/L Normal 136-145 [facility] Comment on above: Performed By: #### 1 988-5 #### [facility] [address] [place] [address] Urea nitrogen [Mass/Vol] 24 mg/dL High 8-20 [facility] Comment on above: Performed By: #### 1 988-5 #### [facility] [address] [place] [address] Urea nitrogen/Creatinine [Mass ratio] 22.6 mg/mg High 12.0-20.0 [facility] Comment on above: Performed By: #### 1 988-5 #### [facility] [address] [place] [address] Anion gap [Moles/Vol] 6 mmol/L 6 - 18 [facility] Calcium [Mass/Vol] 8.3 mg/dL Low 8.9 - 10. 3 mg/dL [facility] Chloride [Moles/Vol] 107 mmol/L 98 - 10 7 mmol/L [facility] CO2 [Moles/Vol] 25 mmol/L 22 - 32 mmol/L [facility] Creatinine [Mass/Vol] 1.06 mg/dL 0.60 - 1.30 mg/dL [facility] GFR/1.73 sq M.predicted among non-blacks MDRD (S/P/Bld) [Vol rate/Area] 59 mL/min/{1.73_m2} Low - [facility] Comment on above: Effective January 08, 2022, calculation based on the Chronic Kidney Disease Epidemiology Collaboration (CKD-EPI) equation refit without adjustment for race. Glucose [Mass/Vol] 104 mg/dL High 70 - 99 mg/dL [facility] Interpretation and review of laboratory results [facility] Potassium [Moles/Vol] 4.7 mmol/L 3.6 - 5.1 mmol/L [facility] Sodium [Moles/Vol] 138 mmol/L 136 - 145 mmol/L [facility] Urea nitrogen [Mass/Vol] 24 mg/dL High 8 - 20 mg/dL [facility] Urea nitrogen/Creatinine [Mass ratio] 22.6 mg/mg High 12.0 - 20.0 [facility] Hemogram and platelets WO di fferential panel (Bld)on 04-22-2022 Erythrocyte distribution width (RBC) [Ratio] 16.4 % High 11.0-14.8 [facility] Comment on above: Performed By: #### 1 988-5 #### [facility] [address] [place] [address] 41773 Hematocrit (Bld) [Volume fraction] 35.8 % Normal 34.3-47.9 [facility] Comment on above: Performed By: #### 1 988-5 #### [facility] [address] [place] [address] 34859 Hemoglobin (Bld) [Mass/Vol] 10.9 g/dL Low 12.0-16.0 [facility] Comment on above: Performed By: #### 1 988-5 #### [facility] [address] [place] [address] 38645 MCH 28.2 pcg Normal 27.0-34.0 [facility] Comment on above: Performed By: #### 1 988-5 #### [facility] [address] [place] [address] 58565 MCHC (RBC) [Mass/Vol] 30.4 g/dL Low 30.8-35.3 [facility] Comment on above: Performed By: #### 1 988-5 #### [facility] [address] [place] [address] 65636 MCV (RBC) [Entitic vol] 92.5 fL Normal 80.0-97.0 [facility] Comment on above: Performed By: #### 1 988-5 #### [facility] [address] [place] [address] 27798 Platelet mean volume (Bld) [Entitic vol] 12.4 fL High 6.2-12.1 [facility] Comment on above: Performed By: #### 1 988-5 #### [facility] [address] [place] [id number] Platelets (Bld) [#/Vol] 158 10*3/uL Normal 142-424 [facility] Comment on above: Performed By: #### 1 988-5 #### [facility] [address] [place] [address] [id number] RBC (Bld) [#/Vol] 3.87 10*6/uL Normal 3.74-5.34 [facility] Comment on above: Performed By: #### 1 988-5 #### [facility] [address] [place] [address] [id number] WBC (Bld) [#/Vol] 9.0 10*3/uL Normal 4.6-10.2 [facility] Comment on above: Performed By: #### 1 988-5 #### [facility] [address] [place] [address] [id number] Erythrocyte distribution width (RBC) [Ratio] 16.4 % High 11.0 - 14.8 % [facility] Hematocrit (Bld) [Volume fraction] 35.8 % 34.3 - 47.9 % [facility] Hemoglobin (Bld) [Mass/Vol] 10.9 g/dL Low 12.0 - 16.0 g/dL [facility] Interpretation and review of laboratory results Abnormal [facility] MCH (RBC) [Entitic mass] 28.2 pg [facility] MCHC (RBC) [Mass/Vol] 30.4 g/dL Low 30.8 - 35.3 g/dL [facility] MCV (RBC) [Entitic vol] 92.5 fL [facility] Platelet mean volume (Bld) [Entitic vol] 12.4 fL High [facility] th Platelets (Bld) [#/Vol] 158 10*3/uL [facility] RBC (Bld) [#/Vol] 3.87 10*6/uL [facility] WBC (Bld) [#/Vol] 9.0 10*3/uL [facility] PT Coag (PPP) [Time]on 04-22 INR Coag (PPP) [Relative time] 0.9 {INR} Normal <=5.0 [facility] [facility] Comment on above: Result Comment: The recommended therapeutic INR range for most cardiac indications is 2.0-3.0 For high intensity therapy (i.e. mechanical heart valves), the recommended range is 2.5-3.5 Performed By: #### 1 988-5 #### [facility] [address] [place] [address] INR Coag (PPP) [Relative time] 0.9 {INR} NINF - 5.0 [facility] Comment on above: The recommended ther apeutic INR range for most cardiac indications is 2.0-3.0 For high intensity therapy (i.e. mechanical heart valves), the recommended range is 2.5-3.5 Interpretation and review of laboratory results Normal [facility] PT Coag (Bld) [Time] 12.6 s [facility] Prothrombin timeon 3 PT Coag (PPP) [Time] 12.6 s Normal 11.9-14.7 [facility] Comment on above: Performed By: #### 1 988-5 #### [facility] [address] [place] [address] SARS-CoV-2 (COVID-19) RNA NA A+probe Ql (Resp)on 04-22-2022 Interpretation and review of laboratory results Normal [facility] SARS-CoV-2 (COVID-19) RdRp gene REBECCA+probe Ql (Resp) Not detected Not Detected [facility] SARS-CoV-2 RNA Resp Ql REBECCA+p robeon 04-22-2022 SARS-CoV-2 (COVID-19) RNA REBECCA+probe Ql (Resp) Not detected Normal Not Detected [facility] Comment on above: Performed By: #### 5 75-1 #### [facility] [address] [place] [address] Basic metabolic 2000 panelon 04-21-2022 Anion gap [Moles/Vol] 9 mmol/L Normal 6-18 [facility] Comment on above: Performed By: #### 1 988-5 #### [facility] [address] [place] [address] Calcium [Mass/Vol] 8.2 mg/dL Low 8.9-10.3 [facility] Comment on above: Performed By: #### 1 988-5 #### [facility] [address] [place] [address] Chloride [Moles/Vol] 108 mmol/L High 98-107 [facility] Comment on above: Performed By: #### 1 988-5 #### [facility] [address] [place] [address] CO2 [Moles/Vol] 22 mmol/L Normal 22-32 [facility] Comment on above: Performed By: #### 1 988-5 #### [facility] [address] [place] [address] Creatinine [Mass/Vol] 1.19 mg/dL Normal 0.60-1.30 [facility] Comment on above: Performed By: #### 1 988-5 #### [facility] [address] [place] [address] GFR/1.73 sq M.predicted among non-blacks MDRD (S/P/Bld) [Vol rate/Area] 51 mL/min/{1.73_m2} Low >=60 [facility] Comment on above: Result Comment: Effe ctive January 08, 2022, calculation based on the?Chronic Kidney Disease Epidemiology Collaboration (CKD-EPI) equation refit?without adjustment for race. Performed By: #### 1 988-5 #### [facility] [address] [place] [address] Glucose [Mass/Vol] 135 mg/dL High 70-99 [facility] Comment on above: Performed By: #### 1 988-5 #### [facility] [address] [place] [address] Potassium [Moles/Vol] 4.6 mmol/L Normal 3.6-5.1 [facility] Comment on above: Performed By: #### 1 988-5 #### [facility] [address] [place] [address] 28660 Sodium [Moles/Vol] 139 mmol/L Normal 136-145 [facility] Comment on above: Performed By: #### 1 988-5 #### [facility] [address] [place] [address]99 Urea nitrogen [Mass/Vol] 19 mg/dL Normal 8-20 [facility] Comment on above: Performed By: #### 1 988-5 #### [facility] [address] [place] [address] Urea nitrogen/Creatinine [Mass ratio] 16.0 mg/mg Normal 12.0-20.0 [facility] Comment on above: Performed By: #### 1 988-5 #### [facility] [address] [place] [address] 19211 Anion gap [Moles/Vol] 9 mmol/L 6 - 18 [facility] Calcium [Mass/Vol] 8.2 mg/dL Low 8.9 - 10. 3 mg/dL [facility] Chloride [Moles/Vol] 108 mmol/L High 98 - 10 7 mmol/L [facility] CO2 [Moles/Vol] 22 mmol/L 22 - 32 mmol/L [facility] Creatinine [Mass/Vol] 1.19 mg/dL 0.60 - 1.30 mg/dL [facility] GFR/1.73 sq M.predicted among non-blacks MDRD (S/P/Bld) [Vol rate/Area] 51 mL/min/{1.73_m2} Low - [facility] Comment on above: Effective January 08, 2022, calculation based on the Chronic Kidney Disease Epidemiology Collaboration (CKD-EPI) equation refit without adjustment for race. Glucose [Mass/Vol] 135 mg/dL High 70 - 99 mg/dL [facility] Interpretation and review of laboratory results Abnormal [facility] Potassium [Moles/Vol] 4.6 mmol/L 3.6 - 5.1 mmol/L [facility] Sodium [Moles/Vol] 139 mmol/L 136 - 145 mmol/L [facility] Urea nitrogen [Mass/Vol] 19 mg/dL 8 - 20 mg/dL [facility] Urea nitrogen/Creatinine [Mass ratio] 16.0 mg/mg 12.0 - 20.0 [facility] Hemogram and platelets WO di fferential panel (Bld)on 04-21-2022 Erythrocyte distribution width (RBC) [Ratio] 15.9 % High 11.0-14.8 [facility] Comment on above: Performed By: #### 1 988-5 #### [facility] [address] [place] [address]228 Hematocrit (Bld) [Volume fraction] 37.0 % Normal 34.3-47.9 [facility] Comment on above: Performed By: #### 1 988-5 #### [facility] [address] [place] [address] Hemoglobin (Bld) [Mass/Vol] 11.6 g/dL Low 12.0-16.0 [facility] Comment on above: Performed By: #### 1 988-5 #### [facility] [address] [place] [address] MCH 28.2 pcg Normal 27.0-34.0 [facility] Comment on above: Performed By: #### 1 988-5 #### [facility] [address] [place] [address] MCHC (RBC) [Mass/Vol] 31.4 g/dL Normal 30.8-35.3 [facility] Comment on above: Performed By: #### 1 988-5 #### [facility] [address] [place] [address] 87520 MCV (RBC) [Entitic vol] 90.0 fL Normal 80.0-97.0 [facility] Comment on above: Performed By: #### 1 988-5 #### [facility] [address] [place] [address] 32433 Platelet mean volume (Bld) [Entitic vol] 12.3 fL High 6.2-12.1 [facility] Comment on above: Performed By: #### 1 988-5 #### [facility] [address] [place] [address]40 Platelets (Bld) [#/Vol] 220 10*3/uL Normal 142-424 [facility] Comment on above: Performed By: #### 1 988-5 #### [facility] [address] [place] [address] 58094 RBC (Bld) [#/Vol] 4.11 10*6/uL Normal 3.74-5.34 [facility] Comment on above: Performed By: #### 1 988-5 #### [facility] [address] [place] [address]33 WBC (Bld) [#/Vol] 13.5 10*3/uL High 4.6-10.2 [facility] Comment on above: Performed By: #### 1 988-5 #### [facility] [address] [place] [address] Erythrocyte distribution width (RBC) [Ratio] 15.9 % High 11.0 - 14.8 % [facility] Hematocrit (Bld) [Volume fraction] 37.0 % 34.3 - 47.9 % [facility] Hemoglobin (Bld) [Mass/Vol] 11.6 g/dL Low 12.0 - 16.0 g/dL [facility] Interpretation and review of laboratory results Abnormal [facility] MCH (RBC) [Entitic mass] 28.2 pg [facility] MCHC (RBC) [Mass/Vol] 31.4 g/dL 30.8 - 35.3 g/dL [facility] MCV (RBC) [Entitic vol] 90.0 fL [facility] Platelet mean volume (Bld) [Entitic vol] 12.3 fL High [facility] th Platelets (Bld) [#/Vol] 220 10*3/uL [facility] RBC (Bld) [#/Vol] 4.11 10*6/uL [facility] WBC (Bld) [#/Vol] 13.5 10*3/uL High [facility] Pathology studyOrdered By: Valerie Segura on 04-21-2022 Citation Rick (Reference lab test) i7vciYHcTYGpiDSlJWVxZ JljdhPdGMOafHFhH5Iamy ahHLdkKK3oGC8ppEjmpCG pkAWaRESqUxVur2czo022 vXWsv9gnMOLIhuicvPb7b 3ooWONPGMzoYNUUHWp1oN jbB31kw5C6ZhevS4qxQHP qUOaqheMlpbQ1QVWeqRNj KSz5DCIpqKVpacNpWeVfG RLdoTKllJT6DCKkIC7sqb jyNOorXMcyMBMukcV4IFQ tdQPxH7LjHXJnQC0xmgjv YCT2CTalZNHpJQU6QiUoR FGre3Qpgwp3WhLnpIUlIE xwbGFpblxpXGYxXGZzMTh cK3QmUMPpNMN1UGTbwwwy REszC98wtV9vYP55JBnaz cUfRCIcv3CuFQZuDAHlSJ seCLTabbIeZYxgzY3dx1t 5IKsvJq3bMSDilnwbKFK8 IlWkIU34VdmvkMXzXZJMf mUsIENvbHVtYnVzLCBPaG dvCGZpDkS1XwWAwFUky7O ds4KuItYpdHMrhL1ndBhs tnW6KXQteCQuNt6abLArQ lxwYXJ9 [place] [employer] Work Phone: Microscopic description Rick (Endomyocardium) a1toqQHdNJOhpKUSOWXnW POkWT6xwHldnUa7mWkbWW MycmS4gNGjCOoyk0yjVZL 4x7pjjkIDNrmeELNfGH2s JGbjCFPnOR3kJxNiAOGdS mYyXHBhcGVydzEyMjQwXH ZoxMKgnWV0XYObCK1vztv uPUhePWchWIWninE8XWBq mMNuA7RdRKQiMK3resvmM JK8MENIVqqoSn9weWFrlD ANCntcZjFcZmNoYXJzZXQ hBNRmgAzrVLUrDEp5bU9X y8qsRmrlL4rsrwFphPEhD z8znUXOBLxqOQDUMQz7tC 5JNDZmU1QeSH0Af8keFPK ywKBkUHH0RWuwc3luQJom QIE5MWEwHHMmKQGbXX2TZ pTtGHPwSzS2VvD6OsK6GJ n2NVHMHIFjEAd2EcxgVCd 6HIn8BOtnbmsiASc5OGTj KZvxxWFaPG4kxDgwXzcqk Sncr6PiqXGzSMKqCKmsrH QgNTEwMDIgXFxkYiBPVlI bIyLjNCw4HVvzJIUiHRu3 XGcyA6CZKMTmOJU8AyWbC UXrVmO6MUp6ZDHAZu5gHo G6ZmSsGIM4HyK0HAHwRPB cXHQgMiBcXHNzIDMgXFxm aXGlBQ0fxGjkDSGcAN9HC HBsYWluXGYxXGZzMjAgQS 6mC78zOPckJHPepLyfWpU yLSXpnZDhxYBfvTHgq5J1 mDDkWMe1lYXkx2W0pTiyX GluZmlsdHJhdGVzOlxwYX IgDQpccGFyZCANClxwbGF pblxmMVxmczIwXHBsYWlu DHk3skCyIPFkHlTsMRWuC 65ew3KTe5FpVX3GLDw1yn GjabcspC6bHNNvlpQxGNd cZjFcZnMyMCBSZWNlaXZl RSPqcyNaz4JtCVbxwtUpW OVwaXOjPSvhhCxcsNL3rZ WapWEjXI5lITMzLZThXMP 5gDBat2V9GYXwgdq1VIYc iGpwtiPoxV7aqH8nxYPhE yBpbmZpbHRyYXRlcywgbG VmdCBrbmVlIiBpcyBhIDM cK86eLMwefcEjJGYzDT5a VWK1k6l0YPJkdo5jnvF6B GUaRuXtI2OweFimVNtvob 90rnY4zIGfgXXjRVNOtNK zx6VkQ0yqZW0wnWKvtaMw obNlMC28GALhdoAudGMqm RZaaLI5GFXfrW7vIzmnW6 sgQTEuXHBhciANClxwYXI tGWlig2OyZDjcfSblZNOt EcGpMPmxkvv2VX6OMDXhO FxlcGljWHNhMCANClxlcG adDtIguSDtErG2HCQyuRW lORC2EL2onNzxEVYdP9Xe H3LnviH1XLUvgwNVFpgzP tijbxPlRJ2FdF== [employer] Work Phone: Pathology report final diagnosis Narrative f4gpeBEsNTHlcTFcNELbQ IomclVkQURgrRIzD6Wneg ezDXhmJT6wRE7nhOlguYV roBOlUBEuDkMop6yic826 hGFbu8nvIPSSgsialTe1l IivL52at9U7WzryH4twIV QwXGdyZWVuMFxibHVlMDt 9XHBhcGVydzEyMjQwXHBh bAIzfJL0WHKnQV6fnatbB RgdQCmaDFPlyhB5JKGypV PxH4AbTUXrOE9radyrGQW 4OJdmRFJoBSJ1CkWrLEFn w3Qoaha2YdSdgZv2k4rrO EDbSDYctWhkz6eoSIS2JM FpvECwV3vibW8jXNYfSK4 jxeexk1caFAefZPerCKHd sIQ0sjK5URLviNDaP3Kps O7aWJVjZDKwlhZerIfnMk L2UZumnPFekkykZhDjV14 taLH1fBZcxMXkGEnaRaVm J1urCOByqarbiBHzMJQpX HGGbEpbSO2hhnPaXXFmNp atIXwbJqzudQ3ywDowtl8 ccGFyICAgLSBOZWdhdGl2 QMRfl9Cdq3rruzktyBZhy bWppZYwcXJfa2M7zNVhDZ e0gKZrs2Z4bEvxPWjzZfb ygW7usLhxbm5cdLGtpH== [employer] Phone: [employer] Phone: Bacteria Spec Anaerobe Culto n 04-20-2022 Bacteria identified Anaer cx Nom (Unsp spec) Culture, Anaerobic Status = F No anaerobes grown after 4 days. Normal [facility] Comment on above: Performed By: #### 3 4556-1 #### [facility] [address] [place] [address] Performed By: #### 5 75-1 #### [facility] [address] [place] [address] Bacteria identified Anaer cx Nom (Unsp spec) Culture, Anaerobic Status = F No anaerobes grown after 4 days. Normal [facility] Comment on above: Performed By: #### 3 4556-1 #### [facility] [address] [place] [address] Bacteria Spec BFld Culton Bacteria identified Sterile [...] to a previously preliminary verified report. Normal [facility] Comment on above: Performed By: #### 6 36-1 #### [facility] [address] [place] [address] Bacteria Tiss Culton 023 Bacteria identified Cx [...] to a previously preliminary verified report. Normal [facility] Comment on above: Performed By: #### 3 4556-1 #### [facility] [address] [place] [address] Performed By: #### 5 75-1 #### [facility] [address] [place] [address] Cell count panel (Body fld)o n 04-20-2022 Fluid Eosinophils 4.0 % Normal [facility] Comment on above: Performed By: #### 1 988-5 #### [facility] [address] [place] [address] Fluid Lining Cells 1.0 % Normal [facility] Comment on above: Performed By: #### 1 988-5 #### [facility] [address] [place] [address] Fluid Lymphocytes 46.0 % Normal [facility] Comment on above: Performed By: #### 1 988-5 #### [facility] [address] [place] [address] Fluid Monocytes/Macrophages 24.0 % Normal [facility] Comment on above: Performed By: #### 1 988-5 #### [facility] [address] [place] [address] Fluid Neutrophils 25.0 % Normal [facility] Comment on above: Performed By: #### 1 988-5 #### [facility] [address] [place] [place] [address] Clarity (Body fld) Hazy [facility] Color (Body fld) [place] [employer] RBC Auto (Body fld) [#/Vol] 44252 /mm3 [facility] Comment on above: The reference range and other method performance specifications have not been established for this fluid specimen. The test result should be integrated into the clinical context for interpretation. Specimen source Nom (Body fld) Synovial [employer] WBC (Body fld) [#/Vol] 111 /mm3 [employer] Comment on above: The reference range and other method performance specifications have not been established for this fluid specimen. The test result should be integrated into the clinical context for interpretation. [employer] Differential panel (Body fld )Ordered By: Valarie Delacruz on 04-20-2022 Eosinophils/100 WBC Manual cnt (Body fld) 4.0 % [facility] Fluid Lining Cells 1.0 % [facility] Lymphocytes/100 WBC Manual cnt (Body fld) 46.0 % [facility] Monocytes+Macrophages /100 WBC (Body fld) 24.0 % [facility] th Neutrophils/100 WBC (Body fld) 25.0 % [facility] Fungus Skin Culton 3 Fungus identified Cx Nom (Skin) Culture, Fungus Status = F No growth at 4 weeks Normal [facility] Comment on above: Performed By: #### 5 75-1 #### [facility] [address] [place] [address] Performed By: #### 3 4556-1 #### [facility] [address] [place] [address] Fungus identified Cx Nom (Skin) Culture, Fungus Status = F No growth at 4 weeks Normal [facility] Comment on above: Performed By: #### 5 75-1 #### [facility] [address] [place] [address] Glucose Auto test strip (Bld ) [Mass/Vol]on 04-20-2022 Glucose [Mass/Vol] 135 mg/dL High 70-99 [facility] Comment on above: Performed By: #### 1 988-5 #### [facility] [address] [place] [address] Glucose [Mass/Vol] 135 mg/dL High 70 - 99 mg/dL [facility] Interpretation and review of laboratory results Abnormal [facility] Mycobacterium Spec Culton Mycobacterium sp identified Org specific cx Nom (Unsp spec) Culture AFB Status = F No growth at 8 weeks AFB Stain Status = F No acid fast bacilli seen Normal [facility] Comment on above: Performed By: #### 5 43-9 #### [facility] [address] [place] [address] Performed By: #### 3 4556-1 #### [facility] [address] [place] [address] Performed By: #### 5 75-1 #### [facility] [address] [place] [address] Mycobacterium sp identified Org specific cx Nom (Unsp spec) Culture AFB Status = F No growth at 8 weeks AFB Stain Status = F No acid fast bacilli seen Normal [facility] Comment on above: Performed By: #### 5 75-1 #### [facility] [place] ([facility] [address] [place] [address] No Panel InformationOrdered By: Hilary Albarran on 04-20-2022 [employer] PT Coag (PPP) [Time]on 04-20 aPTT Coag (Bld) [Time] 22.0 s Low 23.3-35.3 [facility] Comment on above: Performed By: #### 1 988-5 #### [facility] [place] [facility] [address] [place] [address] PT Coag (PPP) [Time]Ordered By: Hilary Albarran on 04-20-2022 INR Coag (PPP) [Relative time] 1.0 {INR} NINF - 5.0 [facility] Comment on above: The recommended ther apeutic INR range for most cardiac indications is 2.0-3.0 For high intensity therapy (i.e. mechanical heart valves), the recommended range is 2.5-3.5 Interpretation and review of laboratory results Normal [facility] [employer] PT Coag (Bld) [Time] 13.4 s [facility] Pathology studyon 04-20-2022 Pathology study Soft tissue, left Blair: - Mild nonspecific inflammation. - Negative for significant perivascular lymphocytic inflammation. A. Knee, Left, Rule out perivascular lymphocytic infiltrates: Received in formalin labeled with patient name and rule out perivascular lymphocytic infiltrates, left knee is a 3 cm aggregate of dusky rogers-trujillo fibrocartilaginous tissue. The specimen is representatively submitted in block A1. (zhw) The technical component was performed at [facility], [address] [place], [place] [address]. Microscopic examination was performed. Normal [facility] Comment on above: Performed By: #### 1 1526-1 #### [facility] ([facility]) [facility] [address] [place] [address] [facility] [address] [place] [address] XR KNEE 1-2 VIEWS LEFTon XR KNEE [...] Self Edit Transcribed Date: 04/20/2022 16:06 Normal [facility] XR Knee 1-2 Views Lefton FINDINGS/IMPRESSION: [...] By: Self Edit Transcribed Date: 04/20/2022 16:06 [employer] Radiology Study observation (narrative) [employer] XR Knee 1-2 Views LeftOrdere d By: Heriberto Saldana on 04-20-2022 [employer] Work Phone: aPTT Coag (Bld) [Time]on aPTT Coag (PPP) [Time] 22.0 s Low [employer] Interpretation and review of laboratory results Abnormal [employer] Covid-19 PCR (CVDTB)on 04-02 SARS-CoV-2 (COVID-19) RNA REBECCA+probe Ql (Unsp spec) Not detected Normal NOT DETECTED [facility] Comment on above: Result Comment: When [...] for this test is supported by the [place] of Health and Human Service's declaration that [...] be used). Performed By: #### C #### [facility] [address] [address] [address] Jeffrey Thomas Bacteria Spec Anaerobe Culto n 04-05-2022 Bacteria identified Anaer cx Nom (Unsp spec) Culture, Anaerobic Status = F No anaerobes grown after 4 days. Normal [facility] Comment on above: Performed By: #### 5 75-1 #### [facility] [address] [place] [address] Bacteria Spec BFld Culton Bacteria identified Sterile [...] to a previously preliminary verified report. Normal [facility] Comment on above: Performed By: #### 5 75-1 #### [facility] [address] [place] [address] Blood type and Indirect anti body screen panel (Bld)on 04-05-2022 ABO group Nom (Bld) A Normal [facility] Comment on above: Performed By: #### 3 4532-2 #### [facility] [address] [place] [address] Rh Type Positive Normal [facility] Comment on above: Performed By: #### 3 4532-2 #### [facility] [address] [place] [address] CRP [Mass/Vol]on 04-05-2022 Anion gap [Moles/Vol] 9 mmol/L Normal 6-18 [facility] Comment on above: Performed By: #### 1 988-5 #### [facility] [address] [place] [address] Calcium [Mass/Vol] 9.4 mg/dL Normal 8.9-10.3 [facility] Comment on above: Performed By: #### 1 988-5 #### [facility] [address] [place] [address] Chloride [Moles/Vol] 105 mmol/L Normal 98-107 [facility] Comment on above: Performed By: #### 1 988-5 #### [facility] [address] [place] [address] CO2 [Moles/Vol] 24 mmol/L Normal 22-32 [facility] Comment on above: Performed By: #### 1 988-5 #### [facility] [address] [place] [address] Creatinine [Mass/Vol] 1.07 mg/dL Normal 0.60-1.30 [facility] Comment on above: Performed By: #### 1 988-5 #### [facility] [address] [place] [address] GFR/1.73 sq M.predicted among non-blacks MDRD (S/P/Bld) [Vol rate/Area] 58 mL/min/{1.73_m2} Low >=60 [facility] Comment on above: Result Comment: Effe ctive January 08, 2022, calculation based on the?Chronic Kidney Disease Epidemiology Collaboration (CKD-EPI) equation refit?without adjustment for race. Performed By: #### 1 988-5 #### [facility] [address] [place] [address] Glucose [Mass/Vol] 97 mg/dL Normal 70-99 [facility] Comment on above: Performed By: #### 1 988-5 #### [facility] [address] [place] [address] Potassium [Moles/Vol] 4.9 mmol/L Normal 3.6-5.1 [facility] Comment on above: Performed By: #### 1 988-5 #### [facility] [address] [place] [address] Sodium [Moles/Vol] 138 mmol/L Normal 136-145 [facility] Comment on above: Performed By: #### 1 988-5 #### [facility] [address] [place] [address] Urea nitrogen [Mass/Vol] 22 mg/dL High 8-20 [facility] Comment on above: Performed By: #### 1 988-5 #### [facility] [address] [place] [address] Urea nitrogen/Creatinine [Mass ratio] 20.6 mg/mg High 12.0-20.0 [facility] Comment on above: Performed By: #### 1 988-5 #### [facility] [address] [place] [id number] Cell count panel (Body fld)o n 04-05-2022 Fluid Eosinophils 3.0 % Normal [facility] Comment on above: Result Comment: Boy ected result: Previously reported as 6.0 % on 04/05/2022 at 1416 EST. Performed By: #### 3 4556-1 #### [facility] [address] [place] [id number] Fluid Lymphocytes 34.0 % Normal [facility] Comment on above: Result Comment: Boy ected result: Previously reported as 43.0 % on 04/05/2022 at 1416 EST. Performed By: #### 3 4556-1 #### [facility] [address] [place] [address] Fluid Monocytes/Macrophages 23.0 % Normal [facility] Comment on above: Result Comment: Boy ected result: Previously reported as 9.0 % on 04/05/2022 at 1416 EST. Performed By: #### 3 4556-1 #### [facility] [address] [place] [address] Fluid Neutrophils 40.0 % Normal [facility] Comment on above: Result Comment: Boy ected result: Previously reported as 39.0 % on 04/05/2022 at 1416 EST. Performed By: #### 3 4556-1 #### [facility] [address] [place] [address] [id number] Fluid Other Cells Normal [facility] Comment on above: Result Comment: Lini ng cells Corrected result: Previously reported as 3.0 % on 04/05/2022 at 1416 EST. Performed By: #### 3 4556-1 #### [facility] [address] [place] [address] Fungus Skin Culton Fungus identified Cx Nom (Skin) Culture, Fungus Status = F No growth at 4 weeks Normal [facility] Comment on above: Performed By: #### 3 4556-1 #### [facility] [address] [place] [address] Hemogram and platelets WO di fferential panel (Bld)on 04-05-2022 Sed Rate 41 mm/hr High 0-20 [facility] Comment on above: Performed By: #### 5 75-1 #### [facility] [address] [place] [address] Mycobacterium Spec Culton Mycobacterium sp identified Org specific cx Nom (Unsp spec) Culture AFB Status = F No growth at 8 weeks AFB Stain Status = F No acid fast bacilli seen Normal [facility] Comment on above: Performed By: #### 1 988-5 #### [facility] [address] [facility] [place] [address] Basic metabolic 2000 panelon 01-05-2022 Anion gap [Moles/Vol] 12 mmol/L [facility] [employer] Calcium [Mass/Vol] 9.1 mg/dL 8.9 - 10. 3 mg/dL [facility] [employer] Chloride [Moles/Vol] 103 mmol/L 98 - 10 7 mmol/L [facility] [employer] CO2 [Moles/Vol] 19 mmol/L Low 22 - 32 mmol/L [facility] [employer] Creatinine [Mass/Vol] 1.28 mg/dL 0.60 - 1.30 mg/dL [employer] GFR/1.73 sq M.predicted MDRD (S/P/Bld) [Vol rate/Area] 44 mL/min/{1.73_m2} Low >=60 mL/min/1.73m 2 [employer] Glucose [Mass/Vol] 99 mg/dL 70 - 99 mg/dL [employer] Interpretation and review of laboratory results Abnormal [employer] Potassium [Moles/Vol] 5.1 mmol/L 3.6 - 5.1 mmol/L [employer] Sodium [Moles/Vol] 134 mmol/L Low 136 - 145 mmol/L [employer] Urea nitrogen [Mass/Vol] 34 mg/dL High 8 - 20 mg/dL [employer] Urea nitrogen/Creatinine [Mass ratio] 26.6 mg/mg High Compliance Control Hemogram and platelets WO di fferential panel (Bld)on 01-05-2022 Basophils (Bld) [#/Vol] 0.10 10*3/uL [employer] Basophils/100 WBC (Bld) 0.8 % 0.0 - 2.0 % [employer] Eosinophils (Bld) [#/Vol] 0.29 10*3/uL [employer] Eosinophils/100 WBC (Bld) 2.3 % 0.0 - 7.0 % [employer] Erythrocyte distribution width (RBC) [Ratio] 15.8 % High 11.0 - 14.8 % [employer] Hematocrit (Bld) [Volume fraction] 35.6 % 34.3 [...] 8.0 % 0.0 - 12.0 % [facility] [employer] Segmented neutrophils (Bld) [#/Vol] 9.02 10*3/uL High [facility] [employer] Segmented neutrophils/100 WBC (Bld) 71.0 % 38.1 - 75.5 % [facility] [employer] PT Coag (PPP) [Time]on 01-05 INR Coag (PPP) [Relative time] 1.0 {INR} <=5.0 [facility] Comment on above: The recommended ther apeutic INR range for most cardiac indications is 2.0-3.0 For high intensity therapy (i.e. mechanical heart valves), the recommended range is 2.5-3.5 Interpretation and review of laboratory results Normal [facility] [employer] PT Coag (Bld) [Time] 13.0 s [facility] [employer] Basic metabolic 2000 panelon 01-04-2022 Anion gap [Moles/Vol] 9 mmol/L [facility] [employer] Calcium [Mass/Vol] 8.9 mg/dL 8.9 - 10. 3 mg/dL [facility] [employer] Chloride [Moles/Vol] 103 mmol/L 98 - 10 7 mmol/L [facility] [employer] CO2 [Moles/Vol] 21 mmol/L Low 22 - 32 mmol/L [facility] [employer] Creatinine [Mass/Vol] 1.00 mg/dL 0.60 - 1.30 mg/dL [facility] [employer] GFR/1.73 sq M.predicted MDRD (S/P/Bld) [Vol rate/Area] 59 mL/min/{1.73_m2} Low >=60 mL/min/1.73m 2 [facility] [employer] Glucose [Mass/Vol] 129 mg/dL High 70 - 99 mg/dL [facility] [employer] Interpretation and review of laboratory results Abnormal [facility] [employer] Potassium [Moles/Vol] 5.0 mmol/L 3.6 - 5.1 mmol/L [facility] [employer] Sodium [Moles/Vol] 133 mmol/L Low 136 - 145 mmol/L [facility] [employer] Urea nitrogen [Mass/Vol] 26 mg/dL High 8 - 20 mg/dL [facility] [employer] Urea nitrogen/Creatinine [Mass ratio] 26.0 mg/mg High [facility] [employer] Hemogram and platelets WO di fferential panel [...] Low [facility] WBC (Bld) [#/Vol] 14.6 10*3/uL High [facility] [employer] Manual Differential panel (B ld)on 01-04-2022 Interpretation and review of laboratory results Abnormal [facility] Lymphocytes (Bld) [#/Vol] 2.77 10*3/uL [facility] [employer] Lymphocytes/100 WBC (Bld) 19.0 % 17.9 - 49.6 % [facility] [employer] Monocytes (Bld) [#/Vol] 1.31 10*3/uL High [facility] [employer] Monocytes/100 WBC (Bld) 9.0 % 0.0 - 12.0 % [facility] Segmented neutrophils (Bld) [#/Vol] 10.51 10*3/uL High [facility] [employer] Segmented neutrophils/100 WBC (Bld) 72.0 % 38.1 - 75.5 % [facility] [employer] PT Coag (PPP) [Time]Ordered By: Hilary Albarran on 01-04-2022 INR Coag (PPP) [Relative time] 0.9 {INR} <=5.0 [facility] Comment on above: The recommended ther apeutic INR range for most cardiac indications is 2.0-3.0 For high intensity therapy (i.e. mechanical heart valves), the recommended range is 2.5-3.5 Interpretation and review of laboratory results Normal [facility] [employer] PT Coag (Bld) [Time] 12.6 s [facility] [employer] Glucose Auto test strip (Bld ) [Mass/Vol]on 01-03-2022 Glucose [Mass/Vol] 144 mg/dL High 70 - 99 mg/dL [facility] Interpretation and review of laboratory results Abnormal [facility] [employer] Covid-19 PCR (CVDTBH)on SARS-CoV-2 (COVID-19) RNA REBECCA+probe Ql (Unsp spec) Not detected Normal NOT DETECTED [facility] Comment on above: Result Comment: When [...] for this test is supported by the [place] of Health and Human Service's declaration that [...] used). Performed By: #### C MP #### [facility] [address] [place] [address] Dr. Jeffrey Thomas CBC AUTO DIFFon 12-14-2021 BASO # 0.1 103/ul Normal 0.0-0.1 [facility] Comment on above: Performed By: #### T 4LC #### [facility] [address] [place] [address] Dr. Jeffrey Thomas Basophils/100 WBC (Bld) 1.2 % Normal 0.2-2.0 [facility] Comment on above: Performed By: #### T 4LC #### [facility] [address] [place] [address] Dr. Jeffrey Thomas EO # 0.2 103/ul Normal 0.0-0.7 [facility] Comment on above: Performed By: #### T 4LC #### [facility] [address] [place] [address] Dr. Jeffrey Thomas Eosinophils/100 WBC (Bld) 3.2 % Normal 0.9-7.0 [facility] Comment on above: Performed By: #### T 4LC #### [facility] [address] [place] [address] Dr. Jeffrey Thomas Erythrocyte distribution width (RBC) [Ratio] 15.9 % Critically high 11.0-15.0 [facility] Comment on above: Performed By: #### T 4LC #### [facility] [address] [place] [address] Dr. Jeffrey Thomas Hematocrit (Bld) [Volume fraction] 35.1 % Critically low 36.0-48.0 [facility] Comment on above: Performed By: #### T 4LC #### [facility] [address] [place] [address] Dr. Jeffrey Thomas Hemoglobin (Bld) [Mass/Vol] 10.8 g/dL Critically low 12.0-16.0 [facility] Comment on above: Performed By: #### 4LC #### [facility] [address] [place] [address] Dr. Jeffrey Thomas IG # 0.03 10e3/ul Normal 0.00-0.03 [facility] Comment on above: Performed By: #### 4LC #### [facility] [address] [place] [address] Dr. Jeffrey Thomas IG % 0.4 % Normal 0.0-0.5 [facility] Comment on above: Performed By: #### 4LC #### [facility] [address] [place] [address] Dr. Jeffrey Thomas LYMPH # 2.1 103/ul Normal 1.2-3.8 [facility] Comment on above: Performed By: #### 4LC #### [facility] [address] [place] [address] Dr. Jeffrey Thomas Lymphocytes/100 WBC (Bld) 30.8 % Normal 20.5-60.0 [facility] Comment on above: Performed By: #### 4LC #### [facility] [address] [place] [address] Dr. Jeffrey Thomas MANUAL DIFF REQ NO Normal [facility] Comment on above: Performed By: #### T 4LC #### [facility] [address] [place] [address] Dr. Jeffrey Thomas MCH (RBC) [Entitic mass] 30.3 pg Normal 26.7-34.0 [facility] Comment on above: Performed By: #### T 4LC #### [facility] [address] [place] [address] Dr. Jeffrey Thomas MCHC (RBC) [Mass/Vol] 30.8 g/dL Normal 29.9-35.2 [facility] Comment on above: Performed By: #### T 4LC #### [facility] [address] [place] [address] Dr. Jeffrey Thomas MCV (RBC) [Entitic vol] 98.6 fL Normal 81.0-99.0 [facility] Comment on above: Performed By: #### 4LC #### [facility] [address] [place] [address] Dr. Jeffrey Thomas MONO # 0.5 103/ul Normal 0.3-0.8 [facility] Comment on above: Performed By: #### 4LC #### [facility] [address] [place] [address] Dr. Jeffrey Thomas Monocytes/100 WBC (Bld) 7.5 % Normal 1.7-12.0 [facility] Comment on above: Performed By: #### 4LC #### [facility] [address] [place] [address] Dr. Jeffrey Thomas NEUT # 3.9 103/ul Normal 1.4-6.5 [facility] Comment on above: Performed By: #### 4LC #### [facility] [address] [place] [address] Dr. Jeffrey Thomas Neutrophils/100 WBC (Bld) 56.9 % Normal 43.0-75.0 [facility] Comment on above: Performed By: #### 4LC #### [facility] [address] [place] [address] Dr. Jeffrey Thomas Platelet mean volume (Bld) [Entitic vol] 12.0 fL Normal 9.5-13.5 [facility] Comment on above: Performed By: #### 4LC #### [facility] [address] [place] [address] Dr. Jeffrey Thomas PLT 209 103/ul Normal 150-450 [facility] Comment on above: Performed By: #### 4LC #### [facility] [address] [place] [address] Dr. Jeffrey Thomas RBC 3.56 106/ul Critically low 4.20-5.40 [facility] Comment on above: Performed By: #### 4LC #### [facility] [address] [place] [address] Dr. Jeffrey Thomas WBC 6.8 103/ul Normal 4.0-11.0 [facility] Comment on above: Performed By: #### T 4LC #### [facility] [address] [place] [address] Dr. Jeffrye Thomas PROF 14(COMP METB)on 022 Albumin [Mass/Vol] 2.5 g/dL Critically low 3.4-5.0 [facility] Comment on above: Performed By: #### L ACT #### [facility] [address] [place] [address] Dr. Jeffrey Thomas Albumin/Globulin [Mass ratio] 1.0 {ratio} Normal [facility] Comment on above: Performed By: #### L ACT #### [facility] [address] [place] [address] Dr. Jeffrey Thomas ALP [Catalytic activity/Vol] 94 U/L Normal 46-116 [facility] Comment on above: Performed By: #### L ACT #### [facility] [address] [place] [address] Dr. Jeffrey Thomas ALT [Catalytic activity/Vol] 9 U/L Critically low 14-59 [facility] Comment on above: Performed By: #### L ACT #### [facility] [address] [place] [address] Dr. Jeffrey Thomas Anion gap [Moles/Vol] 11.7 mmol/L Normal [facility] Comment on above: Performed By: #### L ACT #### [facility] [address] [place] [address] Dr. Jeffrey Thomas AST [Catalytic activity/Vol] 6 U/L Critically low 15-37 [facility] Comment on above: Performed By: #### L ACT #### [facility] [address] [place] [address] Dr. Jeffrey Thomas Bilirubin [Mass/Vol] 0.1 mg/dL Critically low 0.2-1.0 [facility] Comment on above: Performed By: #### L ACT #### [facility] [address] [address] [address] Jeffrey Thomas Calcium [Mass/Vol] 8.2 mg/dL Critically low 8.5-10.1 [facility] Comment on above: Performed By: #### L ACT #### [facility] [address] [address] [address] Jeffrey Thomas Chloride [Moles/Vol] 111 mmol/L Critically high 98-107 [facility] Comment on above: Performed By: #### L ACT #### [facility] [address] [address] [address] Jeffrey Thomas CO2 [Moles/Vol] 22.5 mmol/L Normal 21.0-32.0 [facility] Comment on above: Performed By: #### L ACT #### [facility] [address] [place] [address] Dr. Jeffrey Thomas Creatinine [Mass/Vol] 0.87 mg/dL Normal 0.55-1.02 [facility] Comment on above: Performed By: #### L ACT #### [facility] [address] [place] [address] Dr. Jeffrey Thomas EGFR-AF BAHAMIAN >60 Normal >=60 [facility] Comment on above: Performed By: #### L ACT #### [facility] [address] [place] [address] Dr. Jeffrey Thomas EGFR-NON AF BAHAMIAN >60 Normal >=60 [facility] Comment on above: Performed By: #### L ACT #### [facility] [address] [address] [address] Jeffrey Thomas Globulin (S) [Mass/Vol] 2.6 g/dL Normal [facility] Comment on above: Performed By: #### L ACT #### [facility] [address] [place] [address] Dr. Jeffrey Thomas Glucose [Mass/Vol] 111 mg/dL Critically high 74-106 [facility] Comment on above: Performed By: #### L ACT #### [facility] [address] [address] [address] Jeffrey Thomas Potassium [Moles/Vol] 4.2 mmol/L Normal 3.5-5.1 [facility] Comment on above: Performed By: #### L ACT #### [facility] [address] [place] [address] Dr. Jeffrey Thomas Protein [Mass/Vol] 5.1 g/dL Critically low 6.4-8.2 Th [facility] Comment on above: Performed By: #### L ACT #### [facility] [address] [place] [address] Dr. Jeffrey Thomas Sodium [Moles/Vol] 141 mmol/L Normal 136-145 [facility] Comment on above: Performed By: #### L ACT #### [facility] [address] [place] [address] Dr. Jeffrey Thomas Urea nitrogen [Mass/Vol] 31.0 mg/dL Critically high 7.0-18.0 [facility] Comment on above: Performed By: #### L ACT #### [facility] [address] [place] [address] Dr. Jeffrey Thomas Urea nitrogen/Creatinine [Mass ratio] 35.6 mg/mg Normal [facility] Comment on above: Performed By: #### L ACT #### [facility] [address] [place] [address] Dr. Jeffrey Thomas CBC AUTO DIFFon 12-13-2021 BASO # 0.1 103/ul Normal 0.0-0.1 [facility] Comment on above: Performed By: #### L ACT #### [facility] [address] [place] [address] Dr. Jeffrey Thomas Basophils/100 WBC (Bld) 1.3 % Normal 0.2-2.0 [facility] Comment on above: Performed By: #### L ACT #### [facility] [address] [place] [address] Dr. Jeffrey Thomas EO # 0.3 103/ul Normal 0.0-0.7 [facility] Comment on above: Performed By: #### L ACT #### [facility] [address] [place] [address] Dr. Jeffrey Thomas Eosinophils/100 WBC (Bld) 3.8 % Normal 0.9-7.0 [facility] Comment on above: Performed By: #### L ACT #### [facility] [address] [place] [address] Dr. Jeffrey Thomas Erythrocyte distribution width (RBC) [Ratio] 15.7 % Critically high 11.0-15.0 [facility] Comment on above: Performed By: #### L ACT #### [facility] [address] [place] [address] Dr. Jeffrey Thomas Hematocrit (Bld) [Volume fraction] 35.7 % Critically low 36.0-48.0 [facility] Comment on above: Performed By: #### L ACT #### [facility] [address] [place] [address] Dr. Jeffrey Thomas Hemoglobin (Bld) [Mass/Vol] 11.5 g/dL Critically low 12.0-16.0 [facility] Comment on above: Performed By: #### L ACT #### [facility] [address] [place] [address] Dr. Jeffrey Thomas IG # 0.04 10e3/ul Critically high 0.00-0.03 [facility] Comment on above: Performed By: #### L ACT #### [facility] [address] [place] [address] Dr. Jeffrey Thomas IG % 0.6 % Critically high 0.0-0.5 [facility] Comment on above: Performed By: #### L ACT #### [facility] [address] [place] [address] Dr. Jeffrey Thomas LYMPH # 2.0 103/ul Normal 1.2-3.8 [facility] Comment on above: Performed By: #### L ACT #### [facility] [address] [place] [address] Dr. Jeffrey Thomas Lymphocytes/100 WBC (Bld) 28.8 % Normal 20.5-60.0 [facility] Comment on above: Performed By: #### L ACT #### [facility] [address] [place] [address] Dr. Jeffrey Thomas MANUAL DIFF REQ NO Normal [facility] Comment on above: Performed By: #### L ACT #### [facility] [address] [place] [address] Dr. Jeffrey Thomas MCH (RBC) [Entitic mass] 31.6 pg Normal 26.7-34.0 [facility] Comment on above: Performed By: #### L ACT #### [facility] [address] [place] [address] Dr. Jeffrey Thomas MCHC (RBC) [Mass/Vol] 32.2 g/dL Normal 29.9-35.2 [facility] Comment on above: Performed By: #### L ACT #### [facility] [address] [place] [address] Dr. Jeffrey Thomas MCV (RBC) [Entitic vol] 98.1 fL Normal 81.0-99.0 [facility] Comment on above: Performed By: #### L ACT #### [facility] [address] [place] [address] Dr. Jeffrey Thomas MONO # 0.6 103/ul Normal 0.3-0.8 [facility] Comment on above: Performed By: #### L ACT #### [facility] [address] [place] [address] Dr. Jeffrey Thomas Monocytes/100 WBC (Bld) 8.5 % Normal 1.7-12.0 [facility] Comment on above: Performed By: #### L ACT #### [facility] [address] [place] [address] Dr. Jeffrey Thomas NEUT # 3.9 103/ul Normal 1.4-6.5 [facility] Comment on above: Performed By: #### L ACT #### [facility] [address] [place] [address] Dr. Jeffrey Thomas Neutrophils/100 WBC (Bld) 57.0 % Normal 43.0-75.0 [facility] Comment on above: Performed By: #### L ACT #### [facility] [address] [place] [address] Dr. Jeffrey Thomas Platelet mean volume (Bld) [Entitic vol] 11.5 fL Normal 9.5-13.5 [facility] Comment on above: Performed By: #### L ACT #### [facility] [address] [place] [address] Dr. Jeffrey Thomas PLT 199 103/ul Normal 150-450 [facility] Comment on above: Performed By: #### L ACT #### [facility] [address] [address] [address] Jeffrey Thomas RBC 3.64 106/ul Critically low 4.20-5.40 [facility] Comment on above: Performed By: #### L ACT #### [facility] [address] [address] [address] Jeffrey Thomas WBC 6.9 103/ul Normal 4.0-11.0 [facility] Comment on above: Performed By: #### L ACT #### [facility] [address] [place] [address] Dr. Jeffrey Thomas POINT OF CARE GLUCOSEon 12-01 Glucose [Mass/Vol] 85 mg/dL Normal 74-106 [facility] Comment on above: Performed By: #### C MP #### [facility] [address] [place] [address] Dr. Jeffrey Thomas PROF 14(COMP METB)on 022 Albumin [Mass/Vol] 2.7 g/dL Critically low 3.4-5.0 [facility] Comment on above: Performed By: #### A MM #### [facility] [address] [place] [address] Dr. Jeffrey Thomas Albumin/Globulin [Mass ratio] 1.0 {ratio} Normal [facility] Comment on above: Performed By: #### A MM #### [facility] [address] [place] [address] Dr. Jeffrey Thomas ALP [Catalytic activity/Vol] 95 U/L Normal 46-116 [facility] Comment on above: Performed By: #### A MM #### [facility] [address] [place] [address] Dr. Jeffrey Thomas ALT [Catalytic activity/Vol] 11 U/L Critically low 14-59 [facility] Comment on above: Performed By: #### A MM #### [facility] [address] [address] [address] Jeffrey Thomas Anion gap [Moles/Vol] 10.8 mmol/L Normal [facility] Comment on above: Performed By: #### A MM #### [facility] [address] [address] [address] Jeffrey Thomas AST [Catalytic activity/Vol] 14 U/L Critically low 15-37 [facility] Comment on above: Performed By: #### A MM #### [facility] [address] [address] [address] Jeffrey Thomas Bilirubin [Mass/Vol] 0.2 mg/dL Normal 0.2-1.0 [facility] Comment on above: Performed By: #### A MM #### [facility] [address] [address] [address] Jeffrey Thomas Calcium [Mass/Vol] 8.3 mg/dL Critically low 8.5-10.1 [facility] Comment on above: Performed By: #### A MM #### [facility] [address] [address] [address] Jeffrey Thomas Chloride [Moles/Vol] 113 mmol/L Critically high 98-107 [facility] Comment on above: Performed By: #### A MM #### [facility] [address] [address] [address] Jeffrey Thomas CO2 [Moles/Vol] 22.1 mmol/L Normal 21.0-32.0 [facility] Comment on above: Performed By: #### A MM #### [facility] [address] [address] [address] Jeffrey Thomas Creatinine [Mass/Vol] 0.98 mg/dL Normal 0.55-1.02 [facility] Comment on above: Performed By: #### A MM #### [facility] [address] [address] [address] Jeffrey Thomas EGFR-AF BAHAMIAN >60 Normal >=60 [facility] Comment on above: Performed By: #### A MM #### [facility] [address] [address] [address] Jeffrey Thomas EGFR-NON AF BAHAMIAN 57 mL/min/1.73m2 Critically low >=60 [facility] Comment on above: Performed By: #### A MM #### [facility] [address] [address] [address] Jeffrey Thomas Globulin (S) [Mass/Vol] 2.6 g/dL Normal [facility] Comment on above: Performed By: #### A MM #### [facility] [address] [address] [address] Jeffrey Thomas Glucose [Mass/Vol] 102 mg/dL Normal 74-106 [facility] Comment on above: Performed By: #### A MM #### [facility] [address] [address] [address] Jeffrey Thomas Potassium [Moles/Vol] 3.9 mmol/L Normal 3.5-5.1 [facility] Comment on above: Performed By: #### A MM #### [facility] [address] [address] [address] Jeffrey Thomas Protein [Mass/Vol] 5.3 g/dL Critically low 6.4-8.2 [facility] Comment on above: Performed By: #### A MM #### [facility] [address] [address] [address] Jeffrey Thomas Sodium [Moles/Vol] 142 mmol/L Normal 136-145 [facility] Comment on above: Performed By: #### A MM #### [facility] [address] [address] [address] Jeffrey Thomas Urea nitrogen [Mass/Vol] 26.0 mg/dL Critically high 7.0-18.0 [facility] Comment on above: Performed By: #### A MM #### [facility] [address] [address] [address] Jeffrey Thomas Urea nitrogen/Creatinine [Mass ratio] 26.5 mg/mg Normal [facility] Comment on above: Performed By: #### A MM #### [facility] [address] [place] [address] Dr. Jeffrey Thomas T3, TOTAL (TRIIODOTHYRONINE) on 12-13-2021 T3, TOTAL 72 ng/dL Normal 71-180 [facility] Comment on above: Performed By: #### C MP #### [facility] [address] [place] [address] Dr. Jeffrey Thomas T4 LABCORPon 12-13-2021 T4 [Mass/Vol] 5.2 ug/dL Normal 4.5-12.0 [facility] Comment on above: Performed By: #### T 4LC #### [facility] [address] [place] [address] Dr. Jeffrey Thomas AMMONIAon 12-12-2021 Ammonia (P) [Moles/Vol] 10 umol/L Critically low 11-32 [facility] Comment on above: Performed By: #### A MM #### [facility] [address] [place] [address] Dr. Jeffrey Thomas CBC AUTO DIFFon 12-12-2021 BASO # 0.1 103/ul Normal 0.0-0.1 [facility] Comment on above: Performed By: #### T 4LC #### [facility] [address] [place] [address] Dr. Jeffrey Thomas Basophils/100 WBC (Bld) 1.4 % Normal 0.2-2.0 [facility] Comment on above: Performed By: #### T 4LC #### [facility] [address] [place] [address] Dr. Jeffrey Thomas EO # 0.2 103/ul Normal 0.0-0.7 [facility] Comment on above: Performed By: #### T 4LC #### [facility] [address] [place] [address] Dr. Jeffrey Thomas Eosinophils/100 WBC (Bld) 2.6 % Normal 0.9-7.0 [facility] Comment on above: Performed By: #### T 4LC #### [facility] [address] [place] [address] Dr. Jeffrey Thomas Erythrocyte distribution width (RBC) [Ratio] 15.7 % Critically high 11.0-15.0 [facility] Comment on above: Performed By: #### T 4LC #### [facility] [address] [place] [address] Dr. Jeffrey Thomas Hematocrit (Bld) [Volume fraction] 38.4 % Normal 36.0-48.0 [facility] Comment on above: Performed By: #### T 4LC #### [facility] [address] [place] [address] Dr. Jeffrey Thomas Hemoglobin (Bld) [Mass/Vol] 12.2 g/dL Normal 12.0-16.0 [facility] Comment on above: Performed By: #### T 4LC #### [facility] [address] [place] [address] Dr. Jeffrey Thomas IG # 0.04 10e3/ul Critically high 0.00-0.03 [facility] Comment on above: Performed By: #### T 4LC #### [facility] [address] [place] [address] Dr. Jeffrey Thomas IG % 0.5 % Normal 0.0-0.5 [facility] Comment on above: Performed By: #### T 4LC #### [facility] [address] [place] [address] Dr. Jeffrey Thomas LYMPH # 2.2 103/ul Normal 1.2-3.8 [facility] Comment on above: Performed By: #### T 4LC #### [facility] [address] [place] [address] Dr. Jeffrey Thomas Lymphocytes/100 WBC (Bld) 28.0 % Normal 20.5-60.0 [facility] Comment on above: Performed By: #### T 4LC #### [facility] [address] [place] [address] Dr. Jeffrey Thomas MANUAL DIFF REQ NO Normal [facility] Comment on above: Performed By: #### T 4LC #### [facility] [address] [place] [address] Dr. Jeffrey Thomas MCH (RBC) [Entitic mass] 30.9 pg Normal 26.7-34.0 [facility] Comment on above: Performed By: #### T 4LC #### [facility] [address] [place] [address] Dr. Jeffrey Thomas MCHC (RBC) [Mass/Vol] 31.8 g/dL Normal 29.9-35.2 [facility] Comment on above: Performed By: #### T 4LC #### [facility] [address] [place] [address] Dr. Jeffrey Thomas MCV (RBC) [Entitic vol] 97.2 fL Normal 81.0-99.0 [facility] Comment on above: Performed By: #### T 4LC #### [facility] [address] [place] [address] Dr. Jeffrey Thomas MONO # 0.6 103/ul Normal 0.3-0.8 [facility] Comment on above: Performed By: #### T 4LC #### [facility] [address] [place] [address] Dr. Jeffrey Thomas Monocytes/100 WBC (Bld) 7.9 % Normal 1.7-12.0 [facility] Comment on above: Performed By: #### T 4LC #### [facility] [address] [place] [address] Dr. Jeffrey Thomas NEUT # 4.7 103/ul Normal 1.4-6.5 [facility] Comment on above: Performed By: #### T 4LC #### [facility] [address] [place] [address] Dr. Jeffrey Thomas Neutrophils/100 WBC (Bld) 59.6 % Normal 43.0-75.0 [facility] Comment on above: Performed By: #### T 4LC #### [facility] [address] [place] [address] Dr. Jeffrey Thomas Platelet mean volume (Bld) [Entitic vol] 11.7 fL Normal 9.5-13.5 [facility] Comment on above: Performed By: #### T 4LC #### [facility] [address] [place] [address] Dr. Jeffrey Thomas PLT 256 103/ul Normal 150-450 [facility] Comment on above: Performed By: #### T 4LC #### [facility] [address] [place] [address] Dr. Jeffrey Thomas RBC 3.95 106/ul Critically low 4.20-5.40 [facility] Comment on above: Performed By: #### T 4LC #### [facility] [address] [place] [address] Dr. Jeffrey Thomas WBC 7.9 103/ul Normal 4.0-11.0 [facility] Comment on above: Performed By: #### T 4LC #### [facility] [address] [place] [address] Dr. Jeffrey Thomas BASO # 0.1 103/ul Normal 0.0-0.1 [facility] Comment on above: Performed By: #### C MP #### [facility] [address] [place] [address] Dr. Jeffrey Thomas Basophils/100 WBC (Bld) 1.4 % Normal 0.2-2.0 [facility] Comment on above: Performed By: #### C MP #### [facility] [address] [place] [address] Dr. Jeffrey Thomas EO # 0.2 103/ul Normal 0.0-0.7 [facility] Comment on above: Performed By: #### C MP #### [facility] [address] [place] [address] Dr. Jeffrey Thomas Eosinophils/100 WBC (Bld) 2.9 % Normal 0.9-7.0 [facility] Comment on above: Performed By: #### C MP #### [facility] [address] [place] [address] Dr. Jeffrey Thomas Erythrocyte distribution width (RBC) [Ratio] 15.7 % Critically high 11.0-15.0 [facility] Comment on above: Performed By: #### C MP #### [facility] [address] [place] [address] Dr. Jeffrey Thomas Hematocrit (Bld) [Volume fraction] 40.7 % Normal 36.0-48.0 [facility] Comment on above: Performed By: #### C MP #### [facility] [address] [place] [address] Dr. Jeffrey Thomas Hemoglobin (Bld) [Mass/Vol] 12.9 g/dL Normal 12.0-16.0 [facility] Comment on above: Performed By: #### C MP #### [facility] [address] [place] [address] Dr. Jeffrey Thomas IG # 0.02 10e3/ul Normal 0.00-0.03 [facility] Comment on above: Performed By: #### C MP #### [facility] [address] [place] [address] Dr. Jeffrey Thomas IG % 0.3 % Normal 0.0-0.5 [facility] Comment on above: Performed By: #### C MP #### [facility] [address] [place] [address] Dr. Jeffrey Thomas LYMPH # 1.7 103/ul Normal 1.2-3.8 [facility] Comment on above: Performed By: #### C MP #### [facility] [address] [place] [address] Dr. Jeffrey Thomas Lymphocytes/100 WBC (Bld) 28.4 % Normal 20.5-60.0 [facility] Comment on above: Performed By: #### C MP #### [facility] [address] [place] [address] Dr. Jeffrey Thomas MANUAL DIFF REQ NO Normal [facility] Comment on above: Performed By: #### C MP #### [facility] [address] [place] [address] Dr. Jeffrey Thomas MCH (RBC) [Entitic mass] 30.7 pg Normal 26.7-34.0 [facility] Comment on above: Performed By: #### C MP #### [facility] [address] [place] [address] Dr. Jeffrey Thomas MCHC (RBC) [Mass/Vol] 31.7 g/dL Normal 29.9-35.2 [facility] Comment on above: Performed By: #### C MP #### [facility] [address] [address] [address] Jeffrey Thomas MCV (RBC) [Entitic vol] 96.9 fL Normal 81.0-99.0 [facility] Comment on above: Performed By: #### C MP #### [facility] [address] [address] [address] Jeffrey Thomas MONO # 0.5 103/ul Normal 0.3-0.8 [facility] Comment on above: Performed By: #### C MP #### [facility] [address] [address] [address] Jeffrey Thomas Monocytes/100 WBC (Bld) 8.3 % Normal 1.7-12.0 [facility] Comment on above: Performed By: #### C MP #### [facility] [address] [address] [address] Jeffrey Thomas NEUT # 3.5 103/ul Normal 1.4-6.5 [facility] Comment on above: Performed By: #### C MP #### [facility] [address] [address] [address] Jeffrey Thomas Neutrophils/100 WBC (Bld) 58.7 % Normal 43.0-75.0 [facility] Comment on above: Performed By: #### C MP #### [facility] [address] [address] [address] Jeffrey Thomas Platelet mean volume (Bld) [Entitic vol] 11.5 fL Normal 9.5-13.5 [facility] Comment on above: Performed By: #### C MP #### [facility] [address] [address] [address] Jeffrey Thomas PLT 241 103/ul Normal 150-450 [facility] Comment on above: Performed By: #### C MP #### [facility] [address] [address] [address] Jeffrey Thomas RBC 4.20 106/ul Normal 4.20-5.40 [facility] Comment on above: Performed By: #### C MP #### [facility] [address] [address] [address] Jeffrey Thomas WBC 5.9 103/ul Normal 4.0-11.0 [facility] Comment on above: Performed By: #### C MP #### [facility] [address] [address] [address] Jeffrey Thomas BASO # 0.1 103/ul Normal 0.0-0.1 [facility] Comment on above: Performed By: #### A MM #### [facility] [address] [address] [address] Jeffrey Thomas Basophils/100 WBC (Bld) 1.7 % Normal 0.2-2.0 [facility] Comment on above: Performed By: #### A MM #### [facility] [address] [place] [address] Dr. Jeffrey Thomas EO # 0.1 103/ul Normal 0.0-0.7 [facility] Comment on above: Performed By: #### A MM #### [facility] [address] [place] [address] Dr. Jeffrey Thomas Eosinophils/100 WBC (Bld) 1.7 % Normal 0.9-7.0 [facility] Comment on above: Performed By: #### A MM #### [facility] [address] [place] [address] Dr. Jeffrey Thomas Erythrocyte distribution width (RBC) [Ratio] 15.6 % Critically high 11.0-15.0 [facility] Comment on above: Performed By: #### A MM #### [facility] [address] [place] [address] Dr. Jeffrey Thomas Hematocrit (Bld) [Volume fraction] 43.4 % Normal 36.0-48.0 [facility] Comment on above: Performed By: #### A MM #### [facility] [address] [place] [address] Dr. Jeffrey Thomas Hemoglobin (Bld) [Mass/Vol] 14.2 g/dL Normal 12.0-16.0 [facility] Comment on above: Performed By: #### A MM #### [facility] [address] [address] [address] Jeffrey Thomas IG # 0.04 10e3/ul Critically high 0.00-0.03 [facility] Comment on above: Performed By: #### A MM #### [facility] [address] [place] [address] Dr. Jeffrey Thomas IG % 0.6 % Critically high 0.0-0.5 [facility] Comment on above: Performed By: #### A MM #### [facility] [address] [place] [address] Dr. Jeffrey Thomas LYMPH # 2.2 103/ul Normal 1.2-3.8 [facility] Comment on above: Performed By: #### A MM #### [facility] [address] [place] [address] Dr. Jeffrey Thomas Lymphocytes/100 WBC (Bld) 32.7 % Normal 20.5-60.0 [facility] Comment on above: Performed By: #### A MM #### [facility] [address] [place] [address] Dr. Jeffrey Thomas MANUAL DIFF REQ NO Normal [facility] Comment on above: Performed By: #### A MM #### [facility] [address] [place] [address] Dr. Jeffrey Thomas MCH (RBC) [Entitic mass] 31.3 pg Normal 26.7-34.0 [facility] Comment on above: Performed By: #### A MM #### [facility] [address] [place] [address] Dr. Jeffrey Thomas MCHC (RBC) [Mass/Vol] 32.7 g/dL Normal 29.9-35.2 [facility] Comment on above: Performed By: #### A MM #### [facility] [address] [place] [address] Dr. Jeffrey Thomas MCV (RBC) [Entitic vol] 95.8 fL Normal 81.0-99.0 [facility] Comment on above: Performed By: #### A MM #### [facility] [address] [place] [address] Dr. Jeffrey Thomas MONO # 0.7 103/ul Normal 0.3-0.8 [facility] Comment on above: Performed By: #### A MM #### [facility] [address] [place] [address] Dr. Jeffrey Thomas Monocytes/100 WBC (Bld) 9.9 % Normal 1.7-12.0 [facility] Comment on above: Performed By: #### A MM #### [facility] [address] [place] [address] Dr. Jeffrey Thomas NEUT # 3.5 103/ul Normal 1.4-6.5 [facility] Comment on above: Performed By: #### A MM #### [facility] [address] [place] [address] Dr. Jeffrey Thomas Neutrophils/100 WBC (Bld) 53.4 % Normal 43.0-75.0 [facility] Comment on above: Performed By: #### A MM #### [facility] [address] [place] [address] Dr. Jeffrey Thomas Platelet mean volume (Bld) [Entitic vol] 12.1 fL Normal 9.5-13.5 [facility] Comment on above: Performed By: #### A MM #### [facility] [address] [place] [address] Dr. Jeffrey Thomas PLT 307 103/ul Normal 150-450 [facility] Comment on above: Performed By: #### A MM #### [facility] [address] [place] [address] Dr. Jeffrey Thomas RBC 4.53 106/ul Normal 4.20-5.40 [facility] Comment on above: Performed By: #### A MM #### [facility] [address] [place] [address] Dr. Jeffrey Thomas WBC 6.6 103/ul Normal 4.0-11.0 [facility] Comment on above: Performed By: #### A MM #### [facility] [address] [place] [address] Dr. Jeffrey Thomas Covid-19 PCR (CVDTBH)on 12-01 SARS-CoV-2 (COVID-19) RNA REBECCA+probe Ql (Unsp spec) Not detected Normal NOT DETECTED [facility] Comment on above: Result Comment: When [...] for this test is supported by the Data Management Analyst of Health and Human Service's declaration that [...] used). Performed By: #### C VDTB #### [facility] [address] [place] [address] Dr. Jeffrey Thomas DRUG SCREEN RAPID (URINE)on 12-12-2021 AMP Negative Normal NEGATIVE [facility] Comment on above: Performed By: #### T 4LC #### [facility] [address] [place] [address] Dr. Jeffrey Thomas BAR Negative Normal NEGATIVE [facility] Comment on above: Performed By: #### T 4LC #### [facility] [address] [place] [address] Dr. Jeffrey Thomas BUP Negative Normal NEGATIVE [facility] Comment on above: Performed By: #### T 4LC #### [facility] [address] [place] [address] Dr. Jeffrey Thomas BZO Positive Abnormal NEGATIVE [facility] Comment on above: Performed By: #### T 4LC #### [facility] [address] [place] [address] Dr. Jeffrey Thomas VIKASH Negative Normal NEGATIVE [facility] Comment on above: Performed By: #### T 4LC #### [facility] [address] [place] [address] Dr. Jeffrey Thomas CUT-OFFS SEE BELOW Normal [facility] Comment on above: Result Comment: AMP (Amphetamine): 500ng/mL, BAR (Barbituates): 200 ng/mL, BZO (Benzodiazepines): 150 ng/mL, BUP (Buprenorphine): 10 ng/mL, VIKASH (Cocaine): 150 ng/mL, mAMP (Methamphetamine): 500 ng/mL, MTD (Methadone): 200 ng/mL, OPI (Opiates): 100 ng/mL, OXY (Oxycodone): 100 ng/mL, PCP (Phencyclidine): 25 ng/mL, PPX (Propoxyphene): 300 ng/mL, THC (Cannabinoids): 50 ng/mL, TCA (Trycyclic Antidepressants): 300 ng/mL Performed By: #### T 4LC #### [facility] [address] [place] [address] Dr. Jeffrey Thomas DRUG CUT HEADER DRUG CLASS TEST SYSTEM CUT-OFF CONCENTRATIONS ARE FOLLOWS: Normal [facility] Comment on above: Performed By: #### T 4LC #### [facility] [address] [place] [address] Dr. Jeffrey Thomas mAMP Negative Normal NEGATIVE [facility] Comment on above: Performed By: #### T 4LC #### [facility] [address] [place] [address] Dr. Jeffrey Thomas MTD Negative Normal NEGATIVE [facility] Comment on above: Performed By: #### T 4LC #### [facility] [address] [place] [address] Dr. Jeffrey Thomas OPI Negative Normal NEGATIVE [facility] Comment on above: Performed By: #### T 4LC #### [facility] [address] [place] [address] Dr. Jeffrey Thomas OXY Negative Normal NEGATIVE [facility] Comment on above: Performed By: #### T 4LC #### [facility] [address] [place] [address] Dr. Jeffrey Thomas PCP Negative Normal NEGATIVE [facility] Comment on above: Performed By: #### T 4LC #### [facility] [address] [place] [address] Dr. Jeffrey Thomas PPX Negative Normal NEGATIVE [facility] Comment on above: Performed By: #### T 4LC #### [facility] [address] [place] [address] Dr. Jeffrey Thomas TCA Positive Abnormal NEGATIVE [facility] Comment on above: Performed By: #### T 4LC #### [facility] [address] [place] [address] Dr. Jeffrey Thomas THC Negative Normal NEGATIVE [facility] Comment on above: Performed By: #### T 4LC #### [facility] [address] [place] [address] Dr. Jeffrey Thomas AMP Negative Normal NEGATIVE [facility] Comment on above: Performed By: #### C MP #### [facility] [address] [place] [address] Dr. Jeffrey Thomas BAR Negative Normal NEGATIVE [facility] Comment on above: Performed By: #### C MP #### [facility] [address] [place] [address] Dr. Jeffrey Thomas BUP Negative Normal NEGATIVE [facility] Comment on above: Performed By: #### C MP #### [facility] [address] [place] [address] Dr. Jeffrey Thomas BZO Positive Abnormal NEGATIVE [facility] Comment on above: Performed By: #### C MP #### [facility] [address] [place] [address] Dr. Jeffrey Thomas VIKASH Negative Normal NEGATIVE [facility] Comment on above: Performed By: #### C MP #### [facility] [address] [place] [address] Dr. Jeffrey Thomas CUT-OFFS SEE BELOW Normal [facility] Comment on above: Result Comment: AMP (Amphetamine): 500ng/mL, BAR (Barbituates): 200 ng/mL, BZO (Benzodiazepines): 150 ng/mL, BUP (Buprenorphine): 10 ng/mL, VIKASH (Cocaine): 150 ng/mL, mAMP (Methamphetamine): 500 ng/mL, MTD (Methadone): 200 ng/mL, OPI (Opiates): 100 ng/mL, OXY (Oxycodone): 100 ng/mL, PCP (Phencyclidine): 25 ng/mL, PPX (Propoxyphene): 300 ng/mL, THC (Cannabinoids): 50 ng/mL, TCA (Trycyclic Antidepressants): 300 ng/mL Performed By: #### C MP #### [facility] [address] [place] [address] Dr. Jeffrey Thomas DRUG CUT HEADER DRUG CLASS TEST SYSTEM CUT-OFF CONCENTRATIONS ARE FOLLOWS: Normal [facility] Comment on above: Performed By: #### C MP #### [facility] [address] [place] [address] Dr. Jeffrey Thomas mAMP Negative Normal NEGATIVE [facility] Comment on above: Performed By: #### C MP #### [facility] [address] [place] [address] Dr. Jeffrey Thomas MTD Negative Normal NEGATIVE [facility] Comment on above: Performed By: #### C MP #### [facility] [address] [place] [address] Dr. Jeffrey Thomas OPI Negative Normal NEGATIVE [facility] Comment on above: Performed By: #### C MP #### [facility] [address] [place] [address] Dr. Jeffrey Thomas OXY Negative Normal NEGATIVE [facility] Comment on above: Performed By: #### C MP #### [facility] [address] [place] [address] Dr. Jeffrey Thomas PCP Negative Normal NEGATIVE [facility] Comment on above: Performed By: #### C MP #### [facility] [address] [place] [address] Dr. Jeffrey Thomas PPX Negative Normal NEGATIVE [facility] Comment on above: Performed By: #### C MP #### [facility] [address] [place] [address] Dr. Jeffrey Thomas TCA Positive Abnormal NEGATIVE [facility] Comment on above: Performed By: #### C MP #### [facility] [address] [place] [address] Dr. Jeffrey Thomas THC Negative Normal NEGATIVE [facility] Comment on above: Performed By: #### C MP #### [facility] [address] [address] [address] Jeffrey Thomas ER URINE PROFILEon 2 Bilirubin Ql (U) SMALL Abnormal NEGATIVE [facility] Comment on above: Performed By: #### C MP #### [facility] [address] [address] [address] Jeffrey Thomas Clarity (U) CLEAR Normal CLEAR [facility] Comment on above: Performed By: #### C MP #### [facility] [address] [address] [address] Jeffrey Thomas Color (U) YELLOW Normal YELLOW [facility] Comment on above: Performed By: #### C MP #### [facility] [address] [place] [address] Dr. Jeffrey HOFFMAN A micrscopic examination will be performed if indicated. Normal [facility] Comment on above: Performed By: #### C MP #### [facility] [address] [address] [address] Jeffrey Thomas Glucose Ql (U) Negative Normal NEGATIVE [facility] Comment on above: Performed By: #### C MP #### [facility] [address] [place] [address] Dr. Jeffrey Thomas Hemoglobin Ql (U) Negative Normal NEGATIVE [facility] Comment on above: Performed By: #### C MP #### [facility] [address] [address] [address] Jeffrey Thomas Ketones Ql (U) Negative Normal NEGATIVE [facility] Comment on above: Performed By: #### C MP #### [facility] [address] [address] [address] eJffrey Thomas LEUKOCYTES Negative Normal NEGATIVE [facility] Comment on above: Performed By: #### C MP #### [facility] [address] [place] [address] Dr. Jeffrey Thomas Nitrite Ql (U) Negative Normal NEGATIVE [facility] Comment on above: Performed By: #### C MP #### [facility] [address] [place] [address] Dr. Jeffrey Thomas pH (U) 5.0 [pH] Normal 5-9 [facility] Comment on above: Performed By: #### C MP #### [facility] [address] [place] [address] Dr. Jeffrey Thomas SPEC GRAVITY 1.025 Normal 1.005-<=1.02 5 [facility] Comment on above: Performed By: #### C MP #### [facility] [address] [place] [address] Dr. Jeffrey Thomas UA PROTEIN Negative Normal NEGATIVE/ TRACE [facility] Comment on above: Performed By: #### C MP #### [facility] [address] [place] [address] Dr. Jeffrey Thomas UR MICRO IND NOT INDICATED Normal [facility] Comment on above: Performed By: #### C MP #### [facility] [address] [place] [address] Dr. Jeffrey Thomas Urobilinogen Qn (U) 0.2 {Bere'U}/dL Normal 0.2 - 1. 0 [facility] Comment on above: Performed By: #### C MP #### [facility] [address] [place] [address] Dr. Jeffrey Thomas PROF 14(COMP METB)on 022 Albumin [Mass/Vol] 2.9 g/dL Critically low 3.4-5.0 [facility] Comment on above: Performed By: #### C MP #### [facility] [address] [place] [address] Dr. Jeffrey Thomas Albumin/Globulin [Mass ratio] 1.0 {ratio} Normal [facility] Comment on above: Performed By: #### C MP #### [facility] [address] [place] [address] Dr. Jeffrey Thomas ALP [Catalytic activity/Vol] 116 U/L Normal 46-116 [facility] Comment on above: Performed By: #### C MP #### [facility] [address] [place] [address] Dr. Jeffrey Thomas ALT [Catalytic activity/Vol] 12 U/L Critically low 14-59 [facility] Comment on above: Performed By: #### C MP #### [facility] [address] [address] [address] Jeffrey Thomas Anion gap [Moles/Vol] 11.8 mmol/L Normal [facility] Comment on above: Performed By: #### C MP #### [facility] [address] [address] [address] Jeffrey Thomas AST [Catalytic activity/Vol] 12 U/L Critically low 15-37 [facility] Comment on above: Performed By: #### C MP #### [facility] [address] [place] [address] Dr. Jeffrey Thomas Bilirubin [Mass/Vol] 0.1 mg/dL Critically low 0.2-1.0 [facility] Comment on above: Performed By: #### C MP #### [facility] [address] [place] [address] Dr. Jeffrey Thomas Calcium [Mass/Vol] 8.2 mg/dL Critically low 8.5-10.1 [facility] Comment on above: Performed By: #### C MP #### [facility] [address] [place] [address] Dr. Jeffrey Thomas Chloride [Moles/Vol] 111 mmol/L Critically high 98-107 [facility] Comment on above: Performed By: #### C MP #### [facility] [address] [place] [address] Dr. Jeffrey Thomas CO2 [Moles/Vol] 20.2 mmol/L Critically low 21.0-32.0 [facility] Comment on above: Performed By: #### C MP #### [facility] [address] [place] [address] Dr. Jeffrey Thomas Creatinine [Mass/Vol] 1.26 mg/dL Critically high 0.55-1.02 [facility] Comment on above: Performed By: #### C MP #### [facility] [address] [place] [address] Dr. Jeffrey Thomas EGFR-AF BAHAMIAN 52 mL/min/1.73m2 Critically low >=60 [facility] Comment on above: Performed By: #### C MP #### [facility] [address] [address] [address] Jeffrey Thomas EGFR-NON AF BAHAMIAN 43 mL/min/1.73m2 Critically low >=60 [facility] Comment on above: Performed By: #### C MP #### [facility] [address] [address] [address] Jeffrey Thomas Globulin (S) [Mass/Vol] 3.0 g/dL Normal [facility] Comment on above: Performed By: #### C MP #### [facility] [address] [address] [address] Jeffrey Thomas Glucose [Mass/Vol] 131 mg/dL Critically high 74-106 [facility] Comment on above: Performed By: #### C MP #### [facility] [address] [address] [address] Jeffrey Thomas Potassium [Moles/Vol] 4.0 mmol/L Normal 3.5-5.1 [facility] Comment on above: Performed By: #### C MP #### [facility] [address] [address] [address] Jeffrey Thomas Protein [Mass/Vol] 5.9 g/dL Critically low 6.4-8.2 Th [facility] Comment on above: Performed By: #### C MP #### [facility] [address] [address] [address] Jeffrey Thomas Sodium [Moles/Vol] 139 mmol/L Normal 136-145 [facility] Comment on above: Performed By: #### C MP #### [facility] [address] [address] [address] Jeffrey Thomas Urea nitrogen [Mass/Vol] 30.0 mg/dL Critically high 7.0-18.0 [facility] Comment on above: Performed By: #### C MP #### [facility] [address] [address] [address] Jeffrey Thomas Urea nitrogen/Creatinine [Mass ratio] 23.8 mg/mg Normal [facility] Comment on above: Performed By: #### C MP #### [facility] [address] [address] [address] Jfefrey Thomas Albumin [Mass/Vol] 3.1 g/dL Critically low 3.4-5.0 [facility] Comment on above: Performed By: #### C MP #### [facility] [address] [address] [address] Jeffrey Thomas Albumin/Globulin [Mass ratio] 1.0 {ratio} Normal [facility] Comment on above: Performed By: #### C MP #### [facility] [address] [place] [address] Dr. Jeffrey Thomas ALP [Catalytic activity/Vol] 119 U/L Critically high 46-116 [facility] Comment on above: Performed By: #### C MP #### [facility] [address] [place] [address] Dr. Jeffrey Thomas ALT [Catalytic activity/Vol] 13 U/L Critically low 14-59 [facility] Comment on above: Performed By: #### C MP #### [facility] [address] [place] [address] Dr. Jeffrey Thomas Anion gap [Moles/Vol] 11.9 mmol/L Normal [facility] Comment on above: Performed By: #### C MP #### [facility] [address] [place] [address] Dr. Jeffrey Thomas AST [Catalytic activity/Vol] 15 U/L Normal 15-37 [facility] Comment on above: Performed By: #### C MP #### [facility] [address] [place] [address] Dr. Jeffrey Thomas Bilirubin [Mass/Vol] 0.3 mg/dL Normal 0.2-1.0 [facility] Comment on above: Performed By: #### C MP #### [facility] [address] [place] [address] Dr. Jeffrey Thomas Calcium [Mass/Vol] 8.5 mg/dL Normal 8.5-10.1 [facility] Comment on above: Performed By: #### C MP #### [facility] [address] [address] [address] Jeffrey Thomas Chloride [Moles/Vol] 109 mmol/L Critically high 98-107 [facility] Comment on above: Performed By: #### C MP #### [facility] [address] [address] [address] Jeffrey Thomas CO2 [Moles/Vol] 21.9 mmol/L Normal 21.0-32.0 [facility] Comment on above: Performed By: #### C MP #### [facility] [address] [address] [address] Jeffrey Thomas Creatinine [Mass/Vol] 1.18 mg/dL Critically high 0.55-1.02 [facility] Comment on above: Performed By: #### C MP #### [facility] [address] [address] [address] Jeffrey Thomas EGFR-AF BAHAMIAN 56 mL/min/1.73m2 Critically low >=60 [facility] Comment on above: Performed By: #### C MP #### [facility] [address] [address] [address] Jeffrey Thomas EGFR-NON AF BAHAMIAN 46 mL/min/1.73m2 Critically low >=60 [facility] Comment on above: Performed By: #### C MP #### [facility] [address] [address] [address] Jeffrey Thomas Globulin (S) [Mass/Vol] 3.1 g/dL Normal [facility] Comment on above: Performed By: #### C MP #### [facility] [address] [address] [address] Jeffrey Thomas Glucose [Mass/Vol] 94 mg/dL Normal 74-106 [facility] Comment on above: Performed By: #### C MP #### [facility] [address] [address] [address] Jeffrey Thomas Potassium [Moles/Vol] 3.8 mmol/L Normal 3.5-5.1 [facility] Comment on above: Performed By: #### C MP #### [facility] [address] [address] [address] Jeffrey Thomas Protein [Mass/Vol] 6.2 g/dL Critically low 6.4-8.2 Th [facility] Comment on above: Performed By: #### C MP #### [facility] [address] [address] [address] Jeffrey Thomas Sodium [Moles/Vol] 139 mmol/L Normal 136-145 [facility] Comment on above: Performed By: #### C MP #### [facility] [address] [address] [address] Jeffrey Thomas Urea nitrogen [Mass/Vol] 27.0 mg/dL Critically high 7.0-18.0 [facility] Comment on above: Performed By: #### C MP #### [facility] [address] [address] [address] Jeffrey Thomas Urea nitrogen/Creatinine [Mass ratio] 22.9 mg/mg Normal [facility] Comment on above: Performed By: #### C MP #### [facility] [address] [address] [address] Jeffrey Thomas Albumin [Mass/Vol] 3.3 g/dL Critically low 3.4-5.0 [facility] Comment on above: Performed By: #### A MM #### [facility] [address] [address] [address] Jeffrey Thomas Albumin/Globulin [Mass ratio] 1.0 {ratio} Normal [facility] Comment on above: Performed By: #### A MM #### [facility] [address] [address] [address] Jeffrey Thomas ALP [Catalytic activity/Vol] 127 U/L Critically high 46-116 [facility] Comment on above: Performed By: #### A MM #### [facility] [address] [address] [address] Jeffrey Thomas ALT [Catalytic activity/Vol] 10 U/L Critically low 14-59 [facility] Comment on above: Performed By: #### A MM #### [facility] [address] [address] [address] Jeffrey Thomas Anion gap [Moles/Vol] 12.9 mmol/L Normal Th [facility] Comment on above: Performed By: #### A MM #### [facility] [address] [place] [address] Dr. Jeffrey Thomas AST [Catalytic activity/Vol] 20 U/L Normal 15-37 [facility] Comment on above: Performed By: #### A MM #### [facility] [address] [address] [address] Jeffrey Thomas Bilirubin [Mass/Vol] 0.3 mg/dL Normal 0.2-1.0 [facility] Comment on above: Performed By: #### A MM #### [facility] [address] [place] [address] Dr. Jeffrey Thomas Calcium [Mass/Vol] 8.9 mg/dL Normal 8.5-10.1 [facility] Comment on above: Performed By: #### A MM #### [facility] [address] [place] [address] Dr. Jeffrey Thomas Chloride [Moles/Vol] 106 mmol/L Normal 98-107 [facility] Comment on above: Performed By: #### A MM #### [facility] [address] [place] [address] Dr. Jeffrey Thomas CO2 [Moles/Vol] 21.8 mmol/L Normal 21.0-32.0 [facility] Comment on above: Performed By: #### A MM #### [facility] [address] [place] [address] Dr. Jeffrey Thomas Creatinine [Mass/Vol] 1.54 mg/dL Critically high 0.55-1.02 [facility] Comment on above: Performed By: #### A MM #### [facility] [address] [place] [address] Dr. Jeffrey Thomas EGFR-AF BAHAMIAN 41 mL/min/1.73m2 Critically low >=60 [facility] Comment on above: Performed By: #### A MM #### [facility] [address] [place] [address] Dr. Jeffrey Thomas EGFR-NON AF BAHAMIAN 34 mL/min/1.73m2 Critically low >=60 [facility] Comment on above: Performed By: #### A MM #### [facility] [address] [address] [address] Jeffrey Thomas Globulin (S) [Mass/Vol] 3.4 g/dL Normal [facility] Comment on above: Performed By: #### A MM #### [facility] [address] [address] [address] Jeffrey Thomas Glucose [Mass/Vol] 139 mg/dL Critically high 74-106 [facility] Comment on above: Performed By: #### A MM #### [facility] [address] [place] [address] Dr. Jeffrey Thomas Potassium [Moles/Vol] 3.7 mmol/L Normal 3.5-5.1 [facility] Comment on above: Performed By: #### A MM #### [facility] [address] [place] [address] Dr. Jeffrey hTomas Protein [Mass/Vol] 6.7 g/dL Normal 6.4-8.2 [facility] Comment on above: Performed By: #### A MM #### [facility] [address] [place] [address] Dr. Jeffrey Thomas Sodium [Moles/Vol] 139 mmol/L Normal 136-145 [facility] Comment on above: Performed By: #### A MM #### [facility] [address] [address] [address] Jeffrey Thomas Urea nitrogen [Mass/Vol] 31.0 mg/dL Critically high 7.0-18.0 [facility] Comment on above: Performed By: #### A MM #### [facility] [address] [place] [address] Dr. Jeffrey Thomas Urea nitrogen/Creatinine [Mass ratio] 20.1 mg/mg Normal [facility] Comment on above: Performed By: #### A MM #### [facility] [address] [place] [address] Dr. Jeffrey Thomas PROTIMEon 12-12-2021 INR Coag (PPP) [Relative time] 1.13 {INR} Normal [facility] Comment on above: Performed By: #### T 4LC #### [facility] [address] [place] [address] Dr. Jeffrey Thomas INR GUIDELINES SEE BELOW Normal [facility] Comment on above: Result Comment: MERARI RED INR: 2.0 - 3.0 CONDITIONS NOT LISTED BELOW 2.5 - 3.5 FOR PROSTHETIC HEART VALVE REPLACEMENT 2.5 - 3.5 RECURRENT THROMBOSIS Performed By: #### T 4LC #### [facility] [address] [address] [address] Jeffrey Thomas PT Coag (PPP) [Time] 12.1 s Critically high 9.0-11.6 [facility] Comment on above: Performed By: #### T 4LC #### [facility] [address] [place] [address] Dr. Jeffrey Thomas TSHon 12-12-2021 TSH 0.729 uIU/mL Normal 0.358-3.740 [facility] Comment on above: Performed By: #### C MP #### [facility] [address] [place] [address] Dr. Jeffrey Thomas XR CHEST 1 Von [...] by: GUILLE RAY Date: 2021-12-11 23:48 Normal [facility] PT Coag (PPP) [Time]on 01-08 INR Coag (PPP) [Relative time] 1.5 {INR} <=5.0 [facility] Comment on above: The recommended ther apeutic INR range for most cardiac indications is 2.0-3.0 For high intensity therapy (i.e. mechanical heart valves), the recommended range is 2.5-3.5 Interpretation and review of laboratory results Abnormal [facility] PT Coag (Bld) [Time] 18.1 s [facility] Basic metabolic 2000 panelon 01-07-2021 Calcium [Mass/Vol] 8.8 mg/dL Normal 8.5-10.6 [facility] Chloride [Moles/Vol] 107 mmol/L Normal 98-107 Moun [facility] CO2 [Moles/Vol] 25 mmol/L Normal 21-32 [facility] Creatinine [Mass/Vol] 1.87 mg/dL High 0.55-1.02 Arin [facility] Glucose [Mass/Vol] 96 mg/dL Normal 70-99 [facility] Potassium [Moles/Vol] 4.5 mmol/L Normal 3.5-5.1 Ar[facility] Sodium [Moles/Vol] 141 mmol/L Normal 136-145 [facility] Urea nitrogen (BldV) [Mass/Vol] 27 mg/dL High 7.0-18.0 [facility] Urea nitrogen/Creatinine [Mass ratio] 14 mg/mg Normal [facility] Coronavirus (COVID-19/SARS-C oV-2) RAPIDon 01-07-2021 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 N Normal [facility] First test N Normal [facility] ICU N Normal [facility] Illness or injury onset date and time Normal [facility] Patient was hospitalized because of this condition Y Normal [facility] status N Normal [facility] Resides in congregate care setting N Normal [facility] SARS-CoV-2 (COVID-19) RNA REBECCA+probe Ql (Resp) Not detected Normal NDET [facility] Comment on above: Result Comment: This test was performed via the [employer] NOW COVID 19 assay and has been authorized by FDA under an Emergency Use Authorization (EUA). The assay is validated for nasopharyngeal (ONLINE MERCHANT), nasal, and oropharyngeal (OP) direct swabs. The [...] Symptomatic as defined by CDC N Normal [facility] Gentamicin Trough Levelon Gentamicin trough [Mass/Vol] 1.0 mg/L Normal [facility] Comment on above: Result Comment: Refe rence range: 0.0 to 2.0 Unit: UG/ML PT Coag (PPP) [Time]on 01-07 INR Coag (Bld) [Relative time] 1.3 {INR} Normal [facility] Comment on above: Order Comment: Preho [...] Coag (PPP) [Time] 15.7 s High 11.9-14.6 [facility] Comment on above: Order Comment: Preho spitalization had reported chronic use of Coumadin which was held for surgery. Tobramycin random [Moles/Vol ]on 01-07-2021 Tobramycin [Mass/Vol] SEE SEPARATE REPORT Normal 0.5-1 .5 [facility] Comment on above: Result Comment: SEE NOTES REVIEW TAB FOR RESULTS Basic metabolic 2000 panelon 01-06-2021 Calcium [Mass/Vol] 8.6 mg/dL Normal 8.5-10.6 [facility] Chloride [Moles/Vol] 107 mmol/L Normal 98-107 [facility] CO2 [Moles/Vol] 24 mmol/L Normal 21-32 [facility] Creatinine [Mass/Vol] 1.82 mg/dL High 0.55-1.02 Arin [facility] Glucose [Mass/Vol] 87 mg/dL Normal 70-99 [facility] Potassium [Moles/Vol] 4.8 mmol/L Normal 3.5-5.1 Arin [facility] Sodium [Moles/Vol] 140 mmol/L Normal 136-145 [facility] Urea nitrogen (BldV) [Mass/Vol] 30 mg/dL High 7.0-18.0 [facility] Urea nitrogen/Creatinine [Mass ratio] 16 mg/mg Normal [facility] Hematocriton 01-06-2021 Hematocrit (Bld) [Volume fraction] 28.9 % Low 34.0-50.0 [facility] Hemoglobinon 01-06-2021 Hemoglobin (Bld) [Mass/Vol] 9.4 g/dL Low 11.5-17.0 [facility] Histopathology Requeston Relevant diagnostic tests/laboratory data Narrative SPECIMEN DESCRIPTION 1 LEFT KNEE TISSUE RESULT SEE SEPARATE REPORT RESULT SEE NOTES REVIEW TAB FOR RESULTS ROUTINE LAB Report Date: 01/06/2021 09:09:05 Collect Date: 01/03/2021 12:44:00 Normal [facility] PT Coag (PPP) [Time]on 01-06 INR Coag (Bld) [Relative time] 1.1 {INR} Normal [facility] Comment on above: Order Comment: Preho [...] 14.2 s Normal 11.9-14.6 M[facility] Comment on above: Order Comment: Preho spitalization had reported chronic use of Coumadin which was held for surgery. Basic metabolic 2000 panelon 01-05-2021 Calcium [Mass/Vol] 8.1 mg/dL Low 8.5-10.6 [facility] Chloride [Moles/Vol] 108 mmol/L High 98-107 Moun t [facility] CO2 [Moles/Vol] 27 mmol/L Normal 21-32 [facility] Creatinine [Mass/Vol] 2.05 mg/dL High 0.55-1.02 [facility] Glucose [Mass/Vol] 91 mg/dL Normal 70-99 [facility] Potassium [Moles/Vol] 4.7 mmol/L Normal 3.5-5.1 [facility] Sodium [Moles/Vol] 141 mmol/L Normal 136-145 [facility] Urea nitrogen (BldV) [Mass/Vol] 36 mg/dL High 7.0-18.0 [facility] Urea nitrogen/Creatinine [Mass ratio] 18 mg/mg Normal [facility] CBC W Auto Differential pane l (Bld)on 01-05-2021 Basophils (Bld) [#/Vol] 0.1 thou/mcL Normal 0.0-0.2 [facility] Basophils/100 WBC (Bld) 0.9 % Normal 0-3 [facility] Differential cell count method Nom (Bld) AUTOMATED DIFFERENTIAL Normal [facility] Eosinophils (Bld) [#/Vol] 0.2 thou/mcL Normal 0.0-0.4 [facility] Eosinophils/100 WBC (Bld) 2.2 % Normal 0-7 [facility] Erythrocyte distribution width (RBC) [Entitic vol] 16.0 % High 11.7-15.0 [facility] Hematocrit (Bld) [Volume fraction] 21.4 % Low 34.0-50.0 [facility] Hemoglobin (Bld) [Mass/Vol] 6.8 g/dL Off scale low 11.5-17.0 [facility] Comment on above: Result Comment: RESU LTS VERIFIED AND CALLED TO/READ BACK BY ALFONSO HILARIO 01.05.21 @0559.BA Lymphocytes (Bld) [#/Vol] 0.9 thou/mcL Normal 0.7-4.5 [facility] Lymphocytes/100 WBC (Bld) 12.7 % Low 14-46 [facility] MCH (RBC) [Entitic mass] 27.2 Picograms Normal 27.0-34.0 [facility] MCHC (RBC) [Mass/Vol] 31.8 g/dL Low 32.0-36.0 Arin nt [facility] MCV (RBC) [Entitic vol] 85.5 fL Normal 80-98 [facility] Monocytes (Bld) [#/Vol] 0.6 thou/mcL Normal 0.1-1.0 [facility] Monocytes/100 WBC (Bld) 8.1 % Normal 4-13 [facility] Neutrophils (Bld) [#/Vol] 5.7 thou/mcL Normal 1.5-7.8 [facility] Neutrophils/100 WBC (Bld) 76.1 % High 40-74 [facility] Platelet mean volume (Bld) [Entitic vol] 10.5 fL Normal 7.5-11.2 [facility] Platelets (Bld) [#/Vol] 141 thou/mcL Normal 140-415 [facility] RBC (Bld) [#/Vol] 2.50 x(10)6/mcL Low 3.80-5.60 Mo [facility] WBC (Bld) [#/Vol] 7.5 thou/mcL Normal 4.0-10.5 [facility] Gentamicin Trough Levelon Gentamicin trough [Mass/Vol] 3.9 mg/L Critically high [facility] Comment on above: Result Comment: Refe michelle range: 0.0 to 2.0 Unit: UG/ML (NOTE) Critical value(s) on tests gentt called to and read-back by clementine nuñez at location [facility] by vinnie time called _01/05/21 12:20 Hematocriton 01-05-2021 Hematocrit (Bld) [Volume fraction] 27.2 % Low 34.0-50.0 [facility] Hemoglobinon 01-05-2021 Hemoglobin (Bld) [Mass/Vol] 8.8 g/dL Low 11.5-17.0 [facility] PT Coag (PPP) [Time]on 01-05 INR Coag (Bld) [Relative time] 1.1 {INR} Normal [facility] Comment on above: Order Comment: Preho spitalization had reported chronic use of Coumadin which was held for surgery. Result Comment: NOEMÍ NG THE INDUCTION PHASE OF ORAL ANTICOAGULATION, THE INR MAY NOT REFLECT THE ANTICOAGULANT STATUS OF THE PATIENT. THERAPEUTIC RANGES FOR INR'S ARE: MOST CLINICAL SITUATIONS: INR 2.0-3.0 MECHANICAL PROSTHETIC VALVES: INR 2.5-3.5 CRITICAL: INR 5.0 Pathology studyon 01-05-2021 Case report TRINITY GODINEZ [id number] YRS F [id number] /BD [id number] ORDERING PHYSICIAN: CALOS SMITH [...] cut surface is rogers-pink, soft and homogeneous. Traffic Incident Management Manager sections are submitted in block A1. (RS/1C/MS/RT) Gross examination was performed at [facility]. AJB:MEI 01/04/21 By: LICHA ZEPEDA M.D. (Electronic Signature) MICROSCOPIC: The technical component was performed at [facility], [address] [place] [address]. Microscopic examination was performed. Case resulted at [facility]. DIAGNOSIS: Left knee tissue, revision arthroplasty: -DENSE FIBROUS TISSUE WITH PATCHY CHRONIC INFLAMMATION, FOREIGN BODY GIANT CELL REACTION, AND OSSEOUS METAPLASIA. NOTE: Perivascular lymphocytic inflammation is mild and patchy. JH2:JH2:JH21 END OF REPORT [employer] Comment on above: END OF REPORT [employer] Prothrombin Timeon PT Coag (PPP) [Time] 14.5 s Normal 11.9-14.6 Moun [facility] Comment on above: Order Comment: Preho spitalization had reported chronic use of Coumadin which was held for surgery. Rh Confirm Nom (Bld)on 01-05 ABO group Nom (Bld) A Normal [facility] Rh Nom (Bld) Positive Normal [facility] Tobramycin random [Moles/Vol ]on 01-05-2021 Tobramycin [Mass/Vol] SEE SEPARATE REPORT Normal 0.5-1 .5 [facility] Comment on above: Result Comment: SEE NOTES REVIEW TAB FOR RESULTS Vancomycin [Moles/Vol]on Vancomycin random [Mass/Vol] <3.5 Off scale low 10.0-50.0 [facility] Basic metabolic 2000 panelon 01-04-2021 Calcium [Mass/Vol] 8.5 mg/dL Normal 8.5-10.6 [facility] Chloride [Moles/Vol] 104 mmol/L Normal 98-107 Moun [facility] CO2 [Moles/Vol] 26 mmol/L Normal 21-32 [facility] Creatinine [Mass/Vol] 2.32 mg/dL High 0.55-1.02 Arin nt [facility] Glucose [Mass/Vol] 90 mg/dL Normal 70-99 [facility] Potassium [Moles/Vol] 5.7 mmol/L Critically high 3.5-5.1 [facility] Comment on above: Result Comment: RESU LTS VERIFIED AND CALLED TO/READ BACK BY ABRAM MCQUEEN 10..21 @ 0640. Sodium [Moles/Vol] 138 mmol/L Normal 136-145 [facility] Urea nitrogen (BldV) [Mass/Vol] 45 mg/dL High 7.0-18.0 [facility] Urea nitrogen/Creatinine [Mass ratio] 19 mg/mg Normal [facility] CBC W Auto Differential pane l (Bld)on 01-04-2021 Basophils (Bld) [#/Vol] 0.0 thou/mcL Normal 0.0-0.2 [facility] Basophils/100 WBC (Bld) 0.3 % Normal 0-3 [facility] Differential cell count method Nom (Bld) AUTOMATED DIFFERENTIAL Normal [facility] Eosinophils (Bld) [#/Vol] 0.0 thou/mcL Normal 0.0-0.4 [facility] Eosinophils/100 WBC (Bld) 0.2 % Normal 0-7 [facility] Erythrocyte distribution width (RBC) [Entitic vol] 15.5 % High 11.7-15.0 [facility] Hematocrit (Bld) [Volume fraction] 23.5 % Low 34.0-50.0 [facility] Hemoglobin (Bld) [Mass/Vol] 7.5 g/dL Low 11.5-17.0 [facility] Lymphocytes (Bld) [#/Vol] 1.0 thou/mcL Normal 0.7-4.5 [facility] Lymphocytes/100 WBC (Bld) 13.3 % Low 14-46 [facility] MCH (RBC) [Entitic mass] 27.4 Picograms Normal 27.0-34.0 [facility] MCHC (RBC) [Mass/Vol] 32.0 g/dL Normal 32.0-36.0 Arin [facility] MCV (RBC) [Entitic vol] 85.5 fL Normal 80-98 [facility] Monocytes (Bld) [#/Vol] 0.6 thou/mcL Normal 0.1-1.0 [facility] Monocytes/100 WBC (Bld) 7.5 % Normal 4-13 [facility] Neutrophils (Bld) [#/Vol] 5.8 thou/mcL Normal 1.5-7.8 [facility] Neutrophils/100 WBC (Bld) 78.7 % High 40-74 [facility] Platelet mean volume (Bld) [Entitic vol] 10.5 fL Normal 7.5-11.2 [facility] Platelets (Bld) [#/Vol] 167 thou/mcL Normal 140-415 [facility] RBC (Bld) [#/Vol] 2.75 x(10)6/mcL Low 3.80-5.60 Mo [facility] WBC (Bld) [#/Vol] 7.3 thou/mcL Normal 4.0-10.5 [facility] PT Coag (PPP) [Time]on 01-04 INR Coag (Bld) [Relative time] 1.0 {INR} Normal [facility] Comment on above: Order Comment: Preho [...] Coag (PPP) [Time] 13.6 s Normal 11.9-14.6 [facility] Comment on above: Order Comment: Preho [...] mid left lung, likely atelectasis or scarring. [place] thanks you for the opportunity to care for your patient. Workstation ID: [id number] FINAL REPORT Dictated By: Garo Albarado MD 01/04/2021 11:41 Assigned Physician: Garo Albarado MD Reviewed and Electronically Signed By: Garo Albarado MD 01/04/2021 11:45 Transcribed by: [facility] 01/04/2021 11:41 Technologist: [facility] Garo Albarado MD - 01/08/2021 EXAMINATION TYPE: [...] Transcribed by: STEW 01/04/2021 11:41 Technologist: RAQUEL [employer] Radiology Study observation (narrative) [employer] XR CHEST 1 VIEWOrdered By: Austyn Albarado on 01-04-2021 [employer] Work Phone: XR Chest 1 Viewon 01-04-2021 [...] by: STEW 01/04/2021 11:41 Technologist: RAQUEL Normal [facility] Blood type and Indirect anti body screen panel (Bld)on 01-03-2021 Blood group antibody screen Ql Negative Normal NEG [facility] Rh Nom (Bld) Positive Normal [facility] Cell Count Body Fluidon Cell count panel (Body fld) COLOR, FLUID RED Normal [facility] Culture Aerobicon 01-03-2021 Bacteria identified Aer cx Nom (Unsp spec) [facility] Microbiology PROCEDURE: Culture Aerobic SOURCE: Tissue BODY [...] NO EPITHELIALS SEEN, NO ORGANISMS SEEN Normal [facility] Comment on above: Performed By: #### 6 34-6 ####[address] Bacteria identified Aer cx Nom (Unsp spec) [facility] Microbiology PROCEDURE: Culture Aerobic SOURCE: Tissue BODY [...] NO EPITHELIALS SEEN, NO ORGANISMS SEEN Normal [facility] Comment on above: Performed By: #### 6 34-6 ####[address] Bacteria identified Aer cx Nom (Unsp spec) [facility] Microbiology PROCEDURE: Culture Aerobic SOURCE: Tissue BODY [...] NO EPITHELIALS SEEN, NO ORGANISMS SEEN Normal [facility] Comment on above: Performed By: #### 6 34-6 ####[address] Bacteria identified Aer cx Nom (Unsp spec) [facility] Microbiology PROCEDURE: Culture Aerobic SOURCE: Tissue BODY [...] NO EPITHELIALS SEEN, NO ORGANISMS SEEN Normal [facility] Comment on above: Performed By: #### 6 34-6 ####[address] Culture Anaerobicon 01-04-20 21 Bacteria identified Anaer cx Nom (Unsp spec) [facility] Microbiology PROCEDURE: Culture Anaerobic SOURCE: Tissue BODY [...] 23:34 EDT CONTRIBUTOR_SYSTEM, CO_PN CULTURE IN PROGRESS [facility] Comment on above: Performed By: #### 6 35-3 ####[address] Bacteria identified Anaer cx Nom (Unsp spec) [facility] Microbiology PROCEDURE: Culture Anaerobic SOURCE: Tissue BODY [...] 23:34 EDT CONTRIBUTOR_SYSTEM, CO_PN CULTURE IN PROGRESS [facility] Comment on above: Performed By: #### 6 35-3 ####[address] Bacteria identified Anaer cx Nom (Unsp spec) [facility] Microbiology PROCEDURE: Culture Anaerobic SOURCE: Tissue BODY [...] 23:34 EDT CONTRIBUTOR_SYSTEM, CO_PN CULTURE IN PROGRESS [facility] Comment on above: Performed By: #### 6 35-3 ####[address] Bacteria identified Anaer cx Nom (Unsp spec) [facility] Microbiology PROCEDURE: Culture Anaerobic SOURCE: Tissue BODY [...] 23:34 EDT CONTRIBUTOR_SYSTEM, CO_PN CULTURE IN PROGRESS [facility] Comment on above: Performed By: #### 6 35-3 ####[address] Bacteria identified Anaer cx Nom (Unsp spec) [facility] Microbiology PROCEDURE: Culture Anaerobic SOURCE: Joint Fl [...] 22:43 EDT CONTRIBUTOR_SYSTEM, CO_PN CULTURE IN PROGRESS [facility] Comment on above: Performed By: #### 6 35-3 ####[address] [place], [place] Culture Funguson 01-03-2021 Fungus identified Cx Nom (Unsp spec) [facility] Microbiology PROCEDURE: Culture Fungus SOURCE: Tissue BODY [...] CULTURE WILL BE HELD FOR 1-4 WEEKS [facility] Comment on above: Performed By: #### 5 80-1 ####[address] Fungus identified Cx Nom (Unsp spec) [facility] Microbiology PROCEDURE: Culture Fungus SOURCE: Tissue BODY [...] CULTURE WILL BE HELD FOR 1-4 WEEKS [facility] Comment on above: Performed By: #### 5 80-1 ####[address] [place], [place] Fungus identified Cx Nom (Unsp spec) [facility] Microbiology PROCEDURE: Culture Fungus SOURCE: Tissue BODY [...] CULTURE WILL BE HELD FOR 1-4 WEEKS [facility] Comment on above: Performed By: #### 5 80-1 ####[address] [place], [place] Fungus identified Cx Nom (Unsp spec) [facility] Microbiology PROCEDURE: Culture Fungus SOURCE: Tissue BODY [...] CULTURE WILL BE HELD FOR 1-4 WEEKS [facility] Comment on above: Performed By: #### 5 80-1 ####[address] [place], [place] Fungus identified Cx Nom (Unsp spec) [facility] Microbiology PROCEDURE: Culture Fungus SOURCE: Joint Fl [...] WILL BE HELD FOR 1-4 WEEKS Normal [facility] Comment on above: Performed By: #### 5 80-1 ####[facility] [address] [place], [place] Hematocriton 01-03-2021 Hematocrit (Bld) [Volume fraction] 31.6 % Low 34.0-50.0 [facility] Hemoglobinon 01-03-2021 Hemoglobin (Bld) [Mass/Vol] 10.4 g/dL Low 11.5-17.0 [facility] OR Nursingon 01-03-2021 OR Nursing Normal [facility] PACU I Nursingon 01-03-2021 PACU I Nursing CO NA PACU I Nursing Record Summary Primary Physician: Calos Smith Jr, MD Finalized Date/Time: 01/03/21 15:55:58 Pt. Name: TRINITY GODINEZ/Sex: 1955 Female Med Rec #: [id number] Physician: Calos Smith Jr, MD Financial #: [id number] Pt. Type: I Room/Bed: / Admit/Disch: 01/03/21 09:09:00 - Institution: OR NA OR Main PACU I Case Times [...] By: Taryn Leonard RN 01/03/21 15:55 Normal [facility] PT Coag (PPP) [Time]on 01-03 INR Coag (Bld) [Relative time] 1.1 {INR} Normal [facility] Comment on above: Result Comment: DHARMESHI NG THE INDUCTION PHASE OF ORAL ANTICOAGULATION, [...] Austyn Viveros/Sex: 1955 Female Med Rec #: [id number] Physician: Calos Smith Jr, MD Financial #: [id number] Pt. Type: I Room/Bed: / Admit/Disch: 01/03/21 [...] Zoya Hinson RN, I 01/03/21 12:12 Normal [facility] Prothrombin Timeon 1 PT Coag (PPP) [Time] 13.7 s Normal 11.9-14.6 Moun t [facility] Surgical Pathology Final Rep tom 01-03-2021 Pathology study TRINITY GODINEZ [id number] YRS F [id number] /BD [id number] ORDERING PHYSICIAN: CALOS SMITH [...] cut surface is rogers-pink, soft and homogeneous. Traffic Incident Management Manager sections are submitted in block A1. (RS/1C/MS/RT) Gross examination was performed at [facility]. AJB:MEI 01/04/21 By: LICHA ZEPEDA M.D. (Electronic Signature) MICROSCOPIC: The technical component was performed at [facility], [address] [place] [address]. Microscopic examination was performed. Case resulted at [facility]. DIAGNOSIS: Left knee tissue, revision arthroplasty: -DENSE FIBROUS TISSUE WITH PATCHY CHRONIC INFLAMMATION, FOREIGN BODY GIANT CELL REACTION, AND OSSEOUS METAPLASIA. NOTE: Perivascular lymphocytic inflammation is mild and patchy. JH2:JH2:JH21 END OF REPORT END OF REPORT Normal [facility] XR KNEE 1-2 VIEWS LTon 01-03 LEFT [...] Kerri Reyna MD 01/03/2021 15:53 Transcribed by: [facility] 01/03/2021 15:49 Technologist: EILEEN [employer] Radiology Study observation (narrative) [employer] XR KNEE 1-2 VIEWS LTOrdered By: Kerri Reyna on 01-03-2021 [employer] Phone: XR Knee 1-2 Views LTon 01-03 [...] Left knee arthroplasty revision as detailed above. [place] thanks you for the opportunity to care for your patient. Workstation ID: [id number] FINAL REPORT Dictated By: Kerri Reyna MD 01/03/2021 15:49 Assigned Physician: Kerri Reyna MD Reviewed and Electronically Signed By: Kerri Reyna MD 01/03/2021 15:53 Transcribed by: STEW 01/03/2021 15:49 Technologist: DT Normal [facility] aPTT Coag (Bld) [Time]on aPTT Coag (PPP) [Time] 25.0 s Normal 23.2-34.6 [facility] Histopathology Requeston Relevant diagnostic tests/laboratory data Narrative SPECIMEN DESCRIPTION 1 LEFT KNEE RESULT SEE SEPARATE REPORT RESULT SEE NOTES REVIEW TAB FOR RESULTS ROUTINE LAB Report Date: 11/24/2020 05:51:32 Collect Date: 11/19/2020 13:56:00 Normal [facility] Basic metabolic 2000 panelon 11-22-2020 Calcium [Mass/Vol] 8.0 mg/dL Low 8.5-10.6 [facility] Chloride [Moles/Vol] 103 mmol/L Normal 98-107 Moun [facility] CO2 [Moles/Vol] 29 mmol/L Normal 21-32 [facility] Creatinine [Mass/Vol] 1.09 mg/dL High 0.55-1.02 Arin nt [facility] Glucose [Mass/Vol] 93 mg/dL Normal 70-99 [facility] Potassium [Moles/Vol] 4.4 mmol/L Normal 3.5-5.1 Arin [facility] Sodium [Moles/Vol] 138 mmol/L Normal 136-145 [facility] Urea nitrogen (BldV) [Mass/Vol] 18 mg/dL Normal 7.0-18.0 [facility] Urea nitrogen/Creatinine [Mass ratio] 17 mg/mg Normal [facility] CBC W Auto Differential pane l (Bld)on 11-22-2020 Basophils (Bld) [#/Vol] 0.0 thou/mcL Normal 0.0-0.2 [facility] Basophils/100 WBC (Bld) 0.7 % Normal 0-3 [facility] Differential cell count method Nom (Bld) AUTOMATED DIFFERENTIAL Normal [facility] Eosinophils (Bld) [#/Vol] 0.2 thou/mcL Normal 0.0-0.4 [facility] Eosinophils/100 WBC (Bld) 3.5 % Normal 0-7 [facility] Erythrocyte distribution width (RBC) [Entitic vol] 14.3 % Normal 11.7-15.0 [facility] Hematocrit (Bld) [Volume fraction] 24.8 % Low 34.0-50.0 [facility] Hemoglobin (Bld) [Mass/Vol] 8.2 g/dL Low 11.5-17.0 [facility] Lymphocytes (Bld) [#/Vol] 1.1 thou/mcL Normal 0.7-4.5 [facility] Lymphocytes/100 WBC (Bld) 17.5 % Normal 14-46 [facility] MCH (RBC) [Entitic mass] 29.9 Picograms Normal 27.0-34.0 [facility] MCHC (RBC) [Mass/Vol] 33.0 g/dL Normal 32.0-36.0 Arin [facility] MCV (RBC) [Entitic vol] 90.7 fL Normal 80-98 [facility] Monocytes (Bld) [#/Vol] 0.8 thou/mcL Normal 0.1-1.0 [facility] Monocytes/100 WBC (Bld) 13.0 % Normal 4-13 [facility] Neutrophils (Bld) [#/Vol] 4.2 thou/mcL Normal 1.5-7.8 [facility] Neutrophils/100 WBC (Bld) 65.3 % Normal 40-74 [facility] Platelet mean volume (Bld) [Entitic vol] 10.2 fL Normal 7.5-11.2 [facility] Platelets (Bld) [#/Vol] 176 thou/mcL Normal 140-415 [facility] RBC (Bld) [#/Vol] 2.74 x(10)6/mcL Low 3.80-5.60 Mo [facility] WBC (Bld) [#/Vol] 6.5 thou/mcL Normal 4.0-10.5 [facility] Coronavirus (COVID-19/SARS-C oV-2) RAPIDon 11-22-2020 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 N Normal [facility] First test N Normal [facility] ICU N Normal [facility] Illness or injury onset date and time Normal [facility] Patient was hospitalized because of this condition Y [facility] status N Normal [facility] Resides in congregate care setting N Normal [facility] SARS-CoV-2 (COVID-19) RNA REBECCA+probe Ql (Resp) Not detected Normal NDET [facility] Comment on above: Result Comment: This test was performed via the [employer] NOW COVID 19 assay and has been authorized by FDA under an Emergency Use Authorization (EUA). The assay is validated for nasopharyngeal (ONLINE MERCHANT), nasal, and oropharyngeal (OP) direct swabs. The [...] Disease Control website: www.cdc.gov/coronavirus. Called to Jacquelyn Lakhani 11/22/20 GKB Symptomatic as defined by CDC N Normal [facility] OR Nursingon 11-22-2020 OR Nursing Normal [facility] PT Coag (PPP) [Time]on 11-22 INR Coag (Bld) [Relative time] 1.4 {INR} Normal [facility] Comment on above: Result Comment: NOEMÍ NG [...] room and take this document with you. [facility] 11/22/20 14:48 [address] [place] [address] PATIENT INFORMATION Name: TRINITY GODINEZ Address: [address] [place], [place] [id number] Age: 65 Years Phone: [phone] : 1955 12:00 Sex: Female Race: White Ethnicity: Not Hispan/Lat Admitted From: Clinic or [facility] Medical Service: Orthopedic Surgery Nurse Unit/Bed: (CO) 2N 0221-01 Admit Date: 11/19/2020 09:38 PCP: Levi Shine MD PHYSICIANS INVOLVED WITH CARE ------ Attending Physicians: Ming Quinn MD , Calos - Orthopaedic Surg Admitting Physician: Ming Quinn MD , Calos - Orthopaedic Surg Primary Care Physician:Levi Shine MD,[facility], - Consults: Shailesh VEGA , Grabiel Maciel - Infectious Disease Andrew VEGA , Jose E - Internal Medicine Mario VEGA , Trey E - Internal Medicine Heather, CHAVO - Internal Medicine Angeles VEGA , [place] W - Internal Medicine FOLLOW-UP APPOINTMENTS: Provider: Specialty: Address: Date: Calos Smith Jr, MD Orthopaedic Surg [address] [facility] [address] [facility] [phone] (1) Three Weeks Comment: Call for an Appointment AND ANY QUESTIONS OR CONCERNS Provider: Specialty: Address: Date: Grabiel Hicks MD Infectious Disease [address] [phone] (1) Call for an Appointment Comment: 1) call soon for an appointment with Dr. Hicks in 4-5 weeks, 2) you will be on IV antibiotic until the time of your reimplantation, 3) every Sunday the nursing staff will collect blood work (CBC,SR,CRP,Creat, Vanco Trough) and fax to Dr. Hicks ([phone]), 4) call sooner for fever, chills, nausea, vomiting, diarrhea, rash, pain in your PICC arm or worsening condtion of your wound. Provider: Specialty: Address: Date: Levi Shine MD Family Practice [address] [phone] (1) Follow-up as needed Provider: Specialty: Address: Date: [facility] Follow-up as needed Comment: [place] [facility] [phone] ALLERGIES: NSAIDs : Reaction:Anaphylactic reaction Ancef : Reaction:Anaphylactic reaction morphine : Reaction:Hives : Itching MEASUREMENTS: Last Charted: Weight: 99.00 kg /218 lbs 4 oz ( 11/19/20 10:55:00 ) MEDICATIONS For: GRETCHEN, TRINITY S This is your list of medication(s). Keep it with you at all times. Your doctor may have changed doses, add, held or stopped some of your medications. Please share this information with your family doctor. Carry this list of medications with you in case of an emergency. Update it when medications are stopped, doses are changed, or new medications (including wqyw-orm-syobozj products) are added. Ask your doctor if [...] CBC,SR,Creat,CRP, Vanco Trough, fax to Dr. Hicks [phone] 3)IV ATB UNTIL reimplant 4)Call Dr. Hicks [...] Insomnia/Sleep. T (more content not included)... Normal [facility] Prothrombin Timeon PT Coag (PPP) [Time] 16.9 s High 11.9-14.6 Moun t [facility] Vancomycin [Moles/Vol]on Vancomycin random [Mass/Vol] 28.3 ZZ Normal 10.0-50.0 [facility] Basic metabolic 2000 panelon 11-21-2020 Calcium [Mass/Vol] 8.2 mg/dL Low 8.5-10.6 [facility] Chloride [Moles/Vol] 106 mmol/L Normal 98-107 Moun t [facility] CO2 [Moles/Vol] 29 mmol/L Normal 21-32 [facility] Creatinine [Mass/Vol] 1.07 mg/dL High 0.55-1.02 Arin nt [facility] Glucose [Mass/Vol] 94 mg/dL Normal 70-99 [facility] Potassium [Moles/Vol] 4.3 mmol/L Normal 3.5-5.1 Arin [facility] Sodium [Moles/Vol] 141 mmol/L Normal 136-145 [facility] Urea nitrogen (BldV) [Mass/Vol] 18 mg/dL Normal 7.0-18.0 [facility] Urea nitrogen/Creatinine [Mass ratio] 17 mg/mg Normal [facility] CBC W Auto Differential pane l (Bld)on 11-21-2020 Basophils (Bld) [#/Vol] 0.0 thou/mcL Normal 0.0-0.2 [facility] Basophils/100 WBC (Bld) 0.7 % Normal 0-3 [facility] Differential cell count method Nom (Bld) AUTOMATED DIFFERENTIAL Normal [facility] Eosinophils (Bld) [#/Vol] 0.1 thou/mcL Normal 0.0-0.4 [facility] Eosinophils/100 WBC (Bld) 1.6 % Normal 0-7 [facility] Lymphocytes (Bld) [#/Vol] 1.3 thou/mcL Normal 0.7-4.5 [facility] Lymphocytes/100 WBC (Bld) 18.7 % Normal 14-46 [facility] Monocytes (Bld) [#/Vol] 0.8 thou/mcL Normal 0.1-1.0 [facility] Monocytes/100 WBC (Bld) 12.1 % Normal 4-13 [facility] Neutrophils (Bld) [#/Vol] 4.6 thou/mcL Normal 1.5-7.8 [facility] Neutrophils/100 WBC (Bld) 66.9 % Normal 40-74 [facility] Erythrocyte distribution width (RBC) [Entitic vol] 14.6 % Normal 11.7-15.0 [facility] Hematocrit (Bld) [Volume fraction] 25.9 % Low 34.0-50.0 [facility] Hemoglobin (Bld) [Mass/Vol] 8.5 g/dL Low 11.5-17.0 [facility] MCH (RBC) [Entitic mass] 29.8 Picograms Normal 27.0-34.0 [facility] MCHC (RBC) [Mass/Vol] 32.8 g/dL Normal 32.0-36.0 Arin [facility] MCV (RBC) [Entitic vol] 90.9 fL Normal 80-98 [facility] Platelet mean volume (Bld) [Entitic vol] 9.9 fL Normal 7.5-11.2 [facility] Platelets (Bld) [#/Vol] 181 thou/mcL Normal 140-415 [facility] RBC (Bld) [#/Vol] 2.85 x(10)6/mcL Low 3.80-5.60 Mo [facility] WBC (Bld) [#/Vol] 7.0 thou/mcL Normal 4.0-10.5 [facility] PT Coag (PPP) [Time]on 11-21 INR Coag (Bld) [Relative time] 1.4 {INR} Normal [facility] Comment on above: Result Comment: NOEMÍ GOMEZ THE INDUCTION PHASE OF ORAL ANTICOAGULATION, THE INR MAY NOT REFLECT THE ANTICOAGULANT STATUS OF THE PATIENT. THERAPEUTIC RANGES FOR INR'S ARE: MOST CLINICAL SITUATIONS: INR 2.0-3.0 MECHANICAL PROSTHETIC VALVES: INR 2.5-3.5 CRITICAL: INR 5.0 Prothrombin Timeon PT Coag (PPP) [Time] 17.1 s High 11.9-14.6 Moun [facility] Basic metabolic 2000 panelon 11-20-2020 Calcium [Mass/Vol] 8.3 mg/dL Low 8.5-10.6 [facility] Chloride [Moles/Vol] 104 mmol/L Normal 98-107 Moun [facility] CO2 [Moles/Vol] 24 mmol/L Normal 21-32 [facility] Creatinine [Mass/Vol] 0.97 mg/dL Normal 0.55-1.02 Arin [facility] Glucose [Mass/Vol] 126 mg/dL High 70-99 [facility] Potassium [Moles/Vol] 4.4 mmol/L Normal 3.5-5.1 Arin [facility] Sodium [Moles/Vol] 139 mmol/L Normal 136-145 [facility] Urea nitrogen (BldV) [Mass/Vol] 18 mg/dL Normal 7.0-18.0 [facility] Urea nitrogen/Creatinine [Mass ratio] 19 mg/mg Normal [facility] CBC W Auto Differential pane l (Bld)on 11-20-2020 Basophils (Bld) [#/Vol] 0.0 thou/mcL Normal 0.0-0.2 [facility] Basophils/100 WBC (Bld) 0.2 % Normal 0-3 [facility] Differential cell count method Nom (Bld) AUTOMATED DIFFERENTIAL Normal [facility] Eosinophils (Bld) [#/Vol] 0.0 thou/mcL Normal 0.0-0.4 [facility] Eosinophils/100 WBC (Bld) 0.0 % Normal 0-7 [facility] Lymphocytes (Bld) [#/Vol] 0.9 thou/mcL Normal 0.7-4.5 [facility] Lymphocytes/100 WBC (Bld) 9.1 % Low 14-46 [facility] Monocytes (Bld) [#/Vol] 0.9 thou/mcL Normal 0.1-1.0 [facility] Monocytes/100 WBC (Bld) 9.2 % Normal 4-13 [facility] Neutrophils (Bld) [#/Vol] 7.8 thou/mcL Normal 1.5-7.8 [facility] Neutrophils/100 WBC (Bld) 81.5 % High 40-74 [facility] Erythrocyte distribution width (RBC) [Entitic vol] 14.7 % Normal 11.7-15.0 [facility] Hematocrit (Bld) [Volume fraction] 30.7 % Low 34.0-50.0 [facility] Hemoglobin (Bld) [Mass/Vol] 10.2 g/dL Low 11.5-17.0 [facility] MCH (RBC) [Entitic mass] 30.3 Picograms Normal 27.0-34.0 [facility] MCHC (RBC) [Mass/Vol] 33.3 g/dL Normal 32.0-36.0 Arin [facility] MCV (RBC) [Entitic vol] 90.9 fL Normal 80-98 [facility] Platelet mean volume (Bld) [Entitic vol] 11.1 fL Normal 7.5-11.2 [facility] Platelets (Bld) [#/Vol] 246 thou/mcL Normal 140-415 [facility] RBC (Bld) [#/Vol] 3.38 x(10)6/mcL Low 3.80-5.60 Mo [facility] WBC (Bld) [#/Vol] 9.5 thou/mcL Normal 4.0-10.5 [facility] PT Coag (PPP) [Time]on 11-20 INR Coag (Bld) [Relative time] 1.0 {INR} Normal [facility] Comment on above: Result Comment: NOEMÍ GOMEZ THE INDUCTION PHASE OF ORAL ANTICOAGULATION, THE INR MAY NOT REFLECT THE ANTICOAGULANT STATUS OF THE PATIENT. THERAPEUTIC RANGES FOR INR'S ARE: MOST CLINICAL SITUATIONS: INR 2.0-3.0 MECHANICAL PROSTHETIC VALVES: INR 2.5-3.5 CRITICAL: INR 5.0 Prothrombin Timeon PT Coag (PPP) [Time] 13.6 s Normal 11.9-14.6 Moun [facility] Anesthesia Recordon 11-20-19 Anesthesia Record Patient: TRINITY GODINEZ MRN: ([id number] Age: 65 years Sex: Female : 1955 Associated Diagnoses: None Author: Angel Wyatt MD Procedure Time Out [place] Protocol: patient identity verified, site verified, side verified, procedure to be done verified, patient position verified. REGIONAL ANESTHESIA PROCEDURE Procedure date and begin time: Peripheral nerve block. Procedure date and end time: See nursing notes. Performed by: Angel Wyatt MD. Assisted by: no under water assistant. Informed consent: signed by patient. Technique: [...] Diagnosis Preoperative Diagnosis: Postoperative Diagnosis: . Normal [facility] Culture Aerobicon 11-19-2020 Bacteria identified Aer cx Nom (Unsp spec) [facility] Microbiology PROCEDURE: Culture Aerobic SOURCE: Tissue BODY [...] NO EPITHELIALS SEEN, NO ORGANISMS SEEN Normal [facility] Comment on above: Performed By: #### 6 34-6 ####[address] Bacteria identified Aer cx Nom (Unsp spec) [facility] Microbiology PROCEDURE: Culture Aerobic SOURCE: Tissue BODY [...] POLYS RARE EPIS NO ORGANISMS SEEN Normal [facility] Comment on above: Performed By: #### 6 34-6 ####[address] Bacteria identified Aer cx Nom (Unsp spec) [facility] Microbiology PROCEDURE: Culture Aerobic SOURCE: Tissue BODY [...] POLYS No Epithelials NO ORGANISMS SEEN Normal [facility] Comment on above: Performed By: #### 6 34-6 ####[address] Bacteria identified Aer cx Nom (Unsp spec) [facility] Microbiology PROCEDURE: Culture Aerobic SOURCE: Tissue BODY [...] POLYS No Epithelials NO ORGANISMS SEEN Normal [facility] Comment on above: Performed By: #### 6 34-6 ####[address] Culture Anaerobicon 11-20-19 21 Bacteria identified Anaer cx Nom (Unsp spec) [facility] Microbiology PROCEDURE: Culture Anaerobic SOURCE: Tissue BODY [...] EDT CONTRIBUTOR_SYSTEM, CO_PN CULTURE IN PROGRESS Normal [facility] Comment on above: Performed By: #### 6 35-3 ####[address] Bacteria identified Anaer cx Nom (Unsp spec) [facility] Microbiology PROCEDURE: Culture Anaerobic SOURCE: Tissue BODY [...] 20:36 EDT CONTRIBUTOR_SYSTEM, CO_PN CULTURE IN PROGRESS [facility] Comment on above: Performed By: #### 6 35-3 ####[address] Bacteria identified Anaer cx Nom (Unsp spec) [facility] Microbiology PROCEDURE: Culture Anaerobic SOURCE: Tissue BODY [...] 20:36 EDT CONTRIBUTOR_SYSTEM, CO_PN CULTURE IN PROGRESS [facility] Comment on above: Performed By: #### 6 35-3 ####[address] Bacteria identified Anaer cx Nom (Unsp spec) [facility] Microbiology PROCEDURE: Culture Anaerobic SOURCE: Tissue BODY [...] 20:36 EDT CONTRIBUTOR_SYSTEM, CO_PN CULTURE IN PROGRESS [facility] Comment on above: Performed By: #### 6 35-3 ####[facility] [address] [place], [place] Culture Funguson 11-19-2020 Fungus identified Cx Nom (Unsp spec) [facility] Microbiology PROCEDURE: Culture Fungus SOURCE: Tissue BODY [...] CULTURE WILL BE HELD FOR 1-4 WEEKS [facility] Comment on above: Performed By: #### 5 80-1 ####[id number] [place], [place] Fungus identified Cx Nom (Unsp spec) [facility] Microbiology PROCEDURE: Culture Fungus SOURCE: Tissue BODY [...] CULTURE WILL BE HELD FOR 1-4 WEEKS [facility] Comment on above: Performed By: #### 5 80-1 ####[address] Fungus identified Cx Nom (Unsp spec) [facility] Microbiology PROCEDURE: Culture Fungus SOURCE: Tissue BODY [...] CULTURE WILL BE HELD FOR 1-4 WEEKS [facility] Comment on above: Performed By: #### 5 80-1 ####[address] Fungus identified Cx Nom (Unsp spec) [facility] Microbiology PROCEDURE: Culture Fungus SOURCE: Tissue BODY [...] WILL BE HELD FOR 1-4 WEEKS Normal [facility] Comment on above: Performed By: #### 5 80-1 ####[facility] [address] [place], [place] PACU I Nursingon 11-19-2020 PACU I Nursing CO NA PACU I Nursing Record Summary Primary Physician: Calos Smith Jr, MD Finalized Date/Time: 11/19/20 18:19:26 Pt. Name: TRINITY GODINEZ/Sex: 1955 Female Med Rec #: [id number] Physician: Calos Smith Jr, MD Financial #: [id number] Pt. Type: I Room/Bed: / Admit/Disch: 11/19/20 [...] I Case Attendees Entry 1 Case Attendee Joan BERMUDEZ , Teresita Finch Role Performed RN Last Modified By: Teresita Franco RN 11/19/20 15:47:21 Finalized By: Teresita Franco RN Document Signatures Signed By: Teresita Franco RN 11/19/20 18:19 Normal [facility] PreOp Nursingon 11-19-2020 PreOp Nursing CO NA PreOp Nursing Record Summary Primary Physician: Calos Smith Jr, MD Finalized Date/Time: 11/19/20 13:09:57 Pt. Name: TRINITY GODINEZ/Sex: 1955 Female Med Rec #: [id number] Physician: Calos Smith Jr, MD Financial #: [id number] Pt. Type: I Room/Bed: / Admit/Disch: 11/19/20 [...] By: Cortes Mcclain RN 11/19/20 13:09 Normal [facility] Surgical Pathology Final Rep tom 11-19-2020 Pathology study TRINITY GODINEZ [id number] F [id number] / [id number] ORDERING PHYSICIAN: CALOS SMITH [...] cut surface is rogers-pink, soft and homogeneous. Traffic Incident Management Manager sections are submitted in block (A1). (RS/1C/MS/RT) Gross examination was performed at [facility]. AJB:ASPEN 11/22/20 By: LICHA ZEPEDA M.D. (Electronic Signature) MICROSCOPIC: The technical component was performed at [facility], [address] [place] [address]. Microscopic examination was performed. Case resulted at [facility]. 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 NOTE: There is no significant perivascular lymphocytic inflammation. JH2:JH2:JH208 END OF REPORT END OF REPORT Normal [facility] XR Knee 1-2 Views LTon 08-20 -2021 XR Knee - left 1 or 2 [...] is present. Anterior skin elvira are noted. [place] thanks you for the opportunity to care for your patient. Workstation ID: [id number] FINAL REPORT Dictated By: Abdias Morejon MD 11/19/2020 16:54 Assigned Physician: Abdias Morejon MD Reviewed and Electronically Signed By: Abdias Morejon MD 11/19/2020 16:56 Transcribed by: STEW 11/19/2020 16:54 Technologist: BASIL [facility] PreOp Nursingon 11-18-2020 PreOp Nursing CO NA PreOp Nursing Record Summary Primary Physician: Calos Smith Jr, MD Finalized Date/Time: 11/18/20 15:01:45 Pt. Name: TRINITY GODINEZ/Sex: 1955 Female Med Rec #: [id number] Physician: Calos Smith Jr, MD Financial #: [id number] Pt. Type: I Room/Bed: / Admit/Disch: 11/17/20 [...] Signed By: Deisi Wu RN 11/18/20 15:01 [facility] PT Coag (PPP) [Time]on 11-17 INR Coag (Bld) [Relative time] 1.1 {INR} Normal [facility] Comment on above: Result Comment: NOEMÍ JASON THE INDUCTION PHASE OF ORAL ANTICOAGULATION, THE INR MAY NOT REFLECT THE ANTICOAGULANT STATUS OF THE PATIENT. THERAPEUTIC RANGES FOR INR'S ARE: MOST CLINICAL SITUATIONS: INR 2.0-3.0 MECHANICAL PROSTHETIC VALVES: INR 2.5-3.5 CRITICAL: INR 5.0 Prothrombin Timeon PT Coag (PPP) [Time] 14.1 s Normal 11.9-14.6 Moun [facility] aPTT Coag (Bld) [Time]on aPTT Coag (PPP) [Time] 25.4 s Normal 23.2-34.6 [facility] Basic metabolic 2000 panelon 11-15-2020 Calcium [Mass/Vol] 9.7 mg/dL Normal 8.5-10.6 [facility] Chloride [Moles/Vol] 100 mmol/L Normal 98-107 Moun [facility] CO2 [Moles/Vol] 26 mmol/L Normal 21-32 [facility] Creatinine [Mass/Vol] 1.25 mg/dL High 0.55-1.02 Arin [facility] Glucose [Mass/Vol] 79 mg/dL Normal 70-99 [facility] Potassium [Moles/Vol] 4.0 mmol/L Normal 3.5-5.1 Arin [facility] Sodium [Moles/Vol] 137 mmol/L Normal 136-145 [facility] Urea nitrogen (BldV) [Mass/Vol] 31 mg/dL High 7.0-18.0 [facility] Urea nitrogen/Creatinine [Mass ratio] 25 mg/mg Normal [facility] Blood type and Indirect anti body screen panel (Bld)on 11-15-2020 Blood group antibody screen Ql Negative Normal NEG [facility] Rh Nom (Bld) Positive Normal [facility] C-Reactive Proteinon 021 CRP [Mass/Vol] 5.1 mg/L Normal 0.0-9.0 [facility] CBC W Auto Differential pane l (Bld)on 11-15-2020 Basophils (Bld) [#/Vol] 0.1 thou/mcL Normal 0.0-0.2 [facility] Basophils/100 WBC (Bld) 1.3 % Normal 0-3 [facility] Differential cell count method Nom (Bld) AUTOMATED DIFFERENTIAL Normal [facility] Eosinophils (Bld) [#/Vol] 0.2 thou/mcL Normal 0.0-0.4 [facility] Eosinophils/100 WBC (Bld) 2.7 % Normal 0-7 [facility] Erythrocyte distribution width (RBC) [Entitic vol] 15.2 % High 11.7-15.0 [facility] Hematocrit (Bld) [Volume fraction] 38.1 % Normal 34.0-50.0 [facility] Hemoglobin (Bld) [Mass/Vol] 12.5 g/dL Normal 11.5-17.0 [facility] Lymphocytes (Bld) [#/Vol] 1.8 thou/mcL Normal 0.7-4.5 [facility] Lymphocytes/100 WBC (Bld) 21.9 % Normal 14-46 [facility] MCH (RBC) [Entitic mass] 30.0 Picograms Normal 27.0-34.0 [facility] MCHC (RBC) [Mass/Vol] 32.9 g/dL Normal 32.0-36.0 Arin [facility] MCV (RBC) [Entitic vol] 91.3 fL Normal 80-98 [facility] Monocytes (Bld) [#/Vol] 0.5 thou/mcL Normal 0.1-1.0 [facility] Monocytes/100 WBC (Bld) 6.6 % Normal 4-13 [facility] Neutrophils (Bld) [#/Vol] 5.5 thou/mcL Normal 1.5-7.8 [facility] Neutrophils/100 WBC (Bld) 67.5 % Normal 40-74 [facility] Platelet mean volume (Bld) [Entitic vol] 9.9 fL Normal 7.5-11.2 [facility] Platelets (Bld) [#/Vol] 314 thou/mcL Normal 140-415 [facility] RBC (Bld) [#/Vol] 4.17 x(10)6/mcL Normal 3.80-5.60 Mo [facility] WBC (Bld) [#/Vol] 8.1 thou/mcL Normal 4.0-10.5 [facility] PT Coag (PPP) [Time]on 11-15 INR Coag (Bld) [Relative time] 1.5 {INR} Normal [facility] Comment on above: Result Comment: DURI NG THE INDUCTION PHASE OF ORAL ANTICOAGULATION, THE INR MAY NOT REFLECT THE ANTICOAGULANT STATUS OF THE PATIENT. THERAPEUTIC RANGES FOR INR'S ARE: MOST CLINICAL SITUATIONS: INR 2.0-3.0 MECHANICAL PROSTHETIC VALVES: INR 2.5-3.5 CRITICAL: INR 5.0 Prothrombin Timeon PT Coag (PPP) [Time] 17.7 s High 11.9-14.6 [facility] Sedimentation Rate rbcon ESR (Bld) [Velocity] 52 mm/h [facility] 0-[facility] (Bld) [Time]on aPTT Coag (PPP) [Time] 27.8 s Normal 23.2-34.6 [facility] Prothrombin Time INRon 11-08 INR Coag (PPP) [Relative time] 1.4 {INR} Normal [facility] Comment on above: Result Comment: INR Therapeutic [...] heart valves: 3 - 4.5 PERFORMED BY: [place] [address] PATHOLOGIST PHARMACOGENETICIST JEFFREY GEIGER M.D. Performed By: #### P T #### [facility] [address] [place] [address] PT Coag (PPP) [Time] 15.5 s High 9.0-12.9 [facility] Comment on above: Performed By: #### P T #### [facility] [address] [id number] [facility] Consultation Noteon 08-24-19 Consultation Note [id number]. 00CD:[address] [facility] Operative Reporton Operative Report [id number] .00CD:[address] [facility] Pathology Noteon 08-23-2020 Pathology Note [id number] .00CD:[address] [facility] Consultation Noteon 08-20-19 Consultation Note [id number] .00CD:127 [facility] Facesheeton 08-19-2020 Facesheet [id number] .00CD:[address] [facility] Vital Signs Date Time Vital Sign Value Performing Clinician Faci lity 04-22-2022 11:44-0500 Body temperature 99.1 [degF] Calos Smith MD Work Phone: [employer] 04-22-2022 11:44-0500 Diastolic blood pressure 62 mm[Hg] Calos Smith MD Work Phone: [employer] 04-22-2022 11:44-0500 Heart rate 90 /min Calos Smith MD Work Phone: [employer] 04-22-2022 11:44-0500 Respiratory rate 12 /min Calos Smith MD Work Phone: [employer] 04-22-2022 11:44-0500 SaO2% (BldA) [Mass fraction] 92 % Calos Smith MD Work Phone: [employer] 04-22-2022 11:44-0500 Systolic blood pressure 109 mm[Hg] Calos Smith MD Work Phone: [employer] 04-20-2022 12:25-0500 Body height 172.7 cm Calos Smith MD Work Phone: [employer] 04-20-2022 12:25-0500 Body mass index (BMI) [Ratio] 27.12 kg/m2 Calos Smith MD Work Phone: [employer] 04-20-2022 12:25-0500 Body weight 80.9 kg Calos Smith MD Work Phone: [employer] 01-06-2022 10:05-0400 Diastolic blood pressure 63 mm[Hg] Calos Smith MD Work Phone: [employer] 01-06-2022 10:05-0400 Heart rate 84 /min Calos Smith MD Work Phone: [employer] 01-06-2022 10:05-0400 Systolic blood pressure 111 mm[Hg] Calos Smith MD Work Phone: [employer] 01-06-2022 07:55-0400 SaO2% (BldA) [Mass fraction] 96 % Calos Smith MD Work Phone: [employer] 01-06-2022 07:52-0400 Body temperature 97 [degF] Calos Smith MD Work Phone: [employer] 01-06-2022 04:28-0400 Respiratory rate 12 /min Calos Smith MD Work Phone: [employer] 01-03-2022 07:10-0400 Body height 172.7 cm Calos Smith MD Work Phone: [employer] 01-03-2022 07:10-0400 Body mass index (BMI) [Ratio] 27.05 kg/m2 Calos Smith MD Work Phone: [employer] 01-03-2022 07:10-0400 Body weight 80.7 kg Calos Smith MD Work Phone: [employer] 01-08-2021 09:00-0400 SaO2% (BldA) [Mass fraction] 93 % Calos Smith MD Work Phone: [employer] 01-08-2021 08:12-0400 Body temperature 97.2 [degF] Calos Smith MD Work Phone: [employer] 01-08-2021 08:12-0400 Diastolic blood pressure 83 mm[Hg] Calos Smith MD Work Phone: [employer] 01-08-2021 08:12-0400 Heart rate 76 /min Calos Smith MD Work Phone: [employer] 01-08-2021 08:12-0400 Respiratory rate 12 /min Calos Smith MD Work Phone: [employer] 01-08-2021 08:12-0400 Systolic blood pressure 125 mm[Hg] Calos Smith MD Work Phone: [employer] 01-06-2021 13:37-0400 Body height 175.3 cm Calos Smith MD Work Phone: [employer] Comment on above: Pt reported 01-06-2021 13:37-0400 Body mass index (BMI) [Ratio] 30.41 kg/m2 Calos Smith MD Work Phone: [employer] 01-06-2021 13:37-0400 Body weight 93.4 kg Calos Smith MD Work Phone: [employer] Comment on above: Actual Encounters Encounter Date Encounter Type Care Provider Facility Start: 02-19-2023 ambulatory BRITTANY WOOD [facility] Start: 08-26-2022 End: 08-30-[address] LEVI SHINE . Facility:[facility] Start: 08-25-[address] LEVI SHINE . Facili ty:[facility] Start: 08-23-2022 End: 08-23-2022 ambulatory JACKY HOWELL Facility:[facility] Start: 08-22-[address] LEVI SHINE . Facili ty:[facility] Start: 08-01-2022 End: 08-02-[address] LEVI SHINE . Facility:[facility] Start: 05-22-2022 End: 05-23-[address] LEVI SHINE . Facility:[facility] Start: 05-04-2022 ambulatory BRITTANY NINA [facility] Start: 05-03-2022 ambulatory BRITTANY WOOD [facility] Start: 05-02-2022 ambulatory LEVI SHINE [facility] Start: 05-01-2022 ambulatory LEVI SHINE [facility] Start: 04-30-2022 [facility] Start: 04-29-2022 ambulatory [facility] Start: 04-29-[address] [facility] adult medical examination without abnormal findings [facility] Start: 04-28-2022 ambulatory LEVI SHINE [facility] Start: 04-27-2022 ambulatory LEVI SHINE [facility] Start: 04-26-2022 ambulatory LEVI SHINE [facility] Start: 04-25-2022 ambulatory LEVI SHINE [facility] Start: 04-24-2022 ambulatory P[place] NINA [facility] Start: 04-23-2022 ambulatory [place] NINA [facility] Start: 04-20-2022 End: 04-22-2022 Evaluation and management of inpatient LEVI SHINE [facility] Start: 04-20-2022 End: 04-22-2022 Evaluation and management of inpatient Calos Smith MD Work Phone: [facility] Comment on above: Other mechanical com plication of internal left knee prosthesis, initial encounter ([facility] Start: 04-18-2022 End: 04-18-[address] LEVI SHINE . Facility:[facility] Start: 02-14-[address] LEVI SHINE . Facili ty:[facility] Start: 01-31-2022 End: 03-01-2022 ambulatory SHAIKH Raheem FOWLER Facility:[facility] Start: 01-05-2022 Encounter for preprocedural laboratory examination DR LEVI SHINE . [facility] Start: 01-03-2022 End: 01-06-2022 Evaluation and management of inpatient Calos Smith MD Work Phone: [facility] Start: 01-03-2022 End: 01-06-2022 Subsequent hospital visit by physician Calos Smith MD Work Phone: [facility] Start: 01-02-2022 End: 01-03-[address] LEVI SHINE . Facility:[facility] Start: 01-02-2022 End: 01-03-2022 Encounter for preprocedural laboratory examination DR LEVI SHINE . Facility:[facility] Start: 12-31-2021 ambulatory SHAIKH Raheem PARKEREMMA Facilit y:[facility] Start: 12-12-2021 End: 12-14-[address] LEVI SHINE . Facility:[facility] Start: 10-21-2021 End: 10-22-[address] LEVI SHINE . Facility:[facility] Start: 01-11-2021 ambulatory CALOS SMITH JR. Fac ility:[facility] Start: 01-03-2021 End: 01-08-2021 Evaluation and management of inpatient Calos Smith MD Work Phone: [facility] Start: 05-18-2020 End: 06-17-2020 ambulatory KARAN SULLIVAN Facility:[facility] Start: 05-12-2020 End: 05-27-2020 ambulatory KARAN SULLIVAN Facility:[facility] Procedures Date Procedure Procedure Detail Performing Clinician [...] above: Performed By: #### 3 [id number] #### [facility] [address] [place] [address] Start: 01-05-2022 Prothrombin time Chong Hsieh MD [...] Tdap) DTaP,Tdap,and Td Vaccines (2 - Tdap) [facility] Start: 04-22-2023 Hypertension/CHF/CAD Annual BMP Blood Test Hypertension/CHF/CAD Annual BMP Blood Test [facility] Start: 01-05-2023 Hypertension/CHF/CAD Annual BMP Blood Test Hypertension/CHF/CAD Annual BMP Blood Test [facility] Start: 12-01-2021 Influenza vaccination Influenza Vacc ine (#1) [facility] Start: 08-19-2021 COVID-19 Vaccine (4 - Booster for Pfizer series) COVID-19 Vaccine (4 - Booster for Pfizer series) [facility] Start: 01-16-2021 COVID-19 Vaccine (3 - Booster for Pfizer series) COVID-19 Vaccine (3 - Booster for Pfizer series) [facility] Start: 12-20-2020 Hypertension/CHF/CAD Annual BMP Blood Test Hypertension/CHF/CAD Annual BMP Blood Test [facility] Start: 12-15-2020 Adolescent depressio n screening assessment Depression Screening [facility] Start: 12-15-2020 Depression Screening Depression Scre ening [facility] Start: 12-15-2020 Hepatitis C screening Hepatitis C Sc reening [facility] Start: 12-15-2020 HIV screening HIV Screening [facility] Start: 12-15-2020 Lipid panel Cholesterol Sc reening (Lipid Panel) [facility] Start: 12-15-2020 Medicare Annual Well ness Visit Medicare Annual Wellness Visit [facility] Start: 12-15-2020 Screening for malign ant neoplasm of breast Breast Cancer Screening [facility] Start: 12-15-2020 Screening for malign ant neoplasm of colon Colorectal Cancer Screening: Colonoscopy [facility] Start: 12-15-2020 Screening for malign ant neoplasm of lung Lung Cancer Screening (Low Dose CT) [facility] Start: 12-15-2020 Social Influencers o f Health Screening Social Influencers of Health Screening [facility] Start: 12-01-2020 Influenza vaccination Influenza Vacc ine (#1) [facility] Start: 02-01-2016 Pneumococcal Vaccine : Pediatrics (0 to 5 Years) and At-Risk Patients (6 to 64 Years) (2 - PCV) Pneumococcal Vaccine: Pediatrics (0 to 5 Years) and At-Risk Patients (6 to 64 Years) (2 - PCV) [facility] Start: 2007 Zoster Vaccines (1 of 2) Zoster Vacc ngozi (1 of 2) [facility] Start: 1978 Screening for malign ant neoplasm of cervix Cervical Cancer Screening: Pap Smear [facility] Start: 1976 DTaP,Tdap,and Td Vac cines (1 - Tdap) DTaP,Tdap,and Td Vaccines (1 - Tdap) [facility] Start: 1957 Hepatitis B Vaccines (1 of 3 - 3-dose series) Hepatitis B Vaccines (1 of 3 - 3-dose series) [facility] Bacteria identified in Tissue by Culture Culture tissue with gram stain Microbiology Routine 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, initial encounter ([facility]) 04/20/2022 2:13 PM EST [employer] Bacteria identified in Unspecified specimen by Anaerobe culture [employer] Work Phone: Bacteria identified in Unspecified specimen by Sterile body fluid culture Culture body fluid with gram stain Microbiology Routine 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, initial encounter ([facility]) 04/20/2022 2:10 PM EST [employer] End: 01-08-2021 Communication order: Respiratory Communication order: Respiratory Respiratory Care Routine Once for 1 Occurrences starting 01/08/2021 until 01/08/2021 [employer] Comment on above: Once for 1 Occurrenc es starting 01/08/2021 until 01/08/2021 Fungus identified in Skin by Culture [employer] Incentive spirometry RT Incentiv e spirometry RT Respiratory Care Routine Daily until discontinued starting 01/08/2021 [employer] Comment on above: Daily until disconti nued starting 01/08/2021 Mycobacterium sp identified in Unspecified specimen by Organism specific culture [employer] End: 01-13-2021 Prothrombin time (PT) Prothrombin time with INR Lab Routine Daily for 6 Days starting 01/08/2021 until 01/13/2021, 1 completed [employer] Work Phone: Comment on above: Daily for 6 Days sta rting 01/08/2021 until 01/13/2021, 1 completed Immunizations Immunization Date Immunization Notes Care Provider Fa pattity 02-10-2021 influenza virus vacc ine, unspecified formulation Calos Ming MD Work Phone: [facility] 01-03-2020 influenza virus vacc ine, unspecified formulation Calos Smith MD Work Phone: [facility] Payers Date Payer Category Payer Medicare MEDICARE MEDICAR E RAILROAD [id number] 2015-Present [address] [address] [place] [address] Medicare [id number] 2015 Medicare MEDICARE MEDICAR E RAILROAD [id number] 2015-Present [address] [address] [place] [address] Medicare [id number] 1959 Medicare [id number] 1959 Private Health Insurance [id number] 1955 Unknown [id number] 2.16.840.1.709506.3.579.2 .647 1955 Unknown [id number] 2.16.840.1.568939.3.579.2 .647 1955 Unknown [id number] 2.16.840.1.883912.3.579.2 .593 1955 Unknown [id number] 2.16.840.1.582178.3.579.2 .593 1955 Unknown [id number] 2.16.840.1.046312.3.579.2 .593 1957 Unknown [id number] 2.16.840.1.008963.3.579.2 .593 1957 Unknown [id number] 2.16.840.1.109878.3.579.2 .593 1957 Unknown [id number] 2.16.840.1.367653.3.579.2 .593 1957 Unknown [id number] 2.16.840.1.542505.3.579.2 .593 1957 Unknown [id number] 2.16.840.1.999521.3.579.2 .593 1957 Unknown [id number] 2.16.840.1.919528.3.579.2 .593 1957 Unknown [id number] 2.16.840.1.452397.3.579.2 .593 1957 Unknown [id number] 2.16.840.1.104125.3.579.2 .593 1957 Unknown [id number] 2.16.840.1.012627.3.579.2 .593 1957 Unknown [id number] 2..840.1.224240.3.579.2 .593 1957 Unknown [id number] 2.16.840.1.717498.3.579.2 .114 1957 Unknown [id number] 2.16.840.1.537217.3.579.2 .114 1957 Unknown [id number] 2.16.840.1.724827.3.579.2 .114 1957 Unknown [id number] 2.16.840.1.133495.3.579.2 .114 1957 Unknown [id number] 2.16.840.1.975781.3.579.2 .114 1957 Unknown [id number] 2.16.840.1.945789.3.579.2 .114 1957 Unknown [id number] 2.16.840.1.161968.3.579.2 .114 1957 Unknown [id number] 2.16.840.1.964033.3.579.2 .114 1957 Unknown [id number] 2.16.840.1.316875.3.579.2 .1143 1957 Unknown [id number] 2.16.840.1.861644.3.579.2 .1143 1955 Unknown [id number] 2.16.840.1.928093.3.579.2 .1143 Social History Date Type Detail Facility Tobacco smoking stat [facility] Start: 1955 Sex Assigned At Not on file [facility] Start: 12-30-2021 Tobacco smoking stat [facility] Ex-smoker [facility] End: 08-31-2021 History of tobacco use Current smoker [facility] End: 08-31-2021 History of tobacco use Cigarette Smoker [facility] Start: 12-30-2021 Tobacco use and exposure Smokeless t obacco non-user [facility] Start: 01-03-2022 End: 04-20-2022 Alcohol intake Lifetime non-drinker (finding) [facility] Start: 12-24-2021 End: 04-20-2022 Exposure to SARS-CoV-2 (event) Not sure [facility] Medical Equipment Procedure Code Equipment Code Equipment Origin al Text Equipment Identifier Dates Cement Bone Biom et R 1x40 - [facility] - [id number] ()[id number] [id number])[id number], [id number] [facility] Start: 01-03-2022 Knee Tib Brg Ant Stbl [id number] - [facility] - [id number] ()[id number] [id number] 1)NA, [id number] [facility] Start: 01-03-2022 Clinical Notes 11-17-2020 to 04-22-2022 [...] picking her up around 12-12:30. Delroy at [facility] updated pt to arrive around 1. CARLOTA spoke with Delroy at [facility]. They can accept the pt today. No HENS needed. Pt will need a covid test [phone] [phone] Delroy will need updated with a transport [...] Clarity 04/20/2022 Hazy Body Fluid Color 04/20/2022 [place] Body Fluid RBC 04/20/2022 25,000 Body Fluid [...] 04/20/2022 16:06 Post-op Progress Note Subjective Procedure: KS RECONSTR DISLOCATING PATELLA W EXT REALIGNMENT AND/OR MUSCLE ADVMNT/RLS [43528] (Left knee extensor mechanism realignment with lateral retinacular release) KS LATERAL RETINACULAR RELEASE OPEN [41298] Interval History: Shannon Godinez, 66 y.o. female, [...] Plan for discharge to Subacute Rehab Facility ([facility] or [facility]) when cleared by PT and [...] or worsening End of Shift Summary: Progressing [facility]- Referral received and chart reviewed. Patient accepted by [facility]. Spoke to patient over phone and answered questions. She has been to our facility in the past. Will follow in in AM. Patient needs a rapid Covid prior to admission. Alicia Jacobo RN [phone] If [facility] can not accept the patient would like the next referral to [facility] Patient not discharging today called Dr Simpson and telephone order received to start the cleocin 300mg Q12hr for 10days as ordered for discharge Updated the patient she needs to choose another facility and she states she has gone to [facility] and would like a referral and sent. Called Admissions and they will review the referral. Spoke to [facility] and they have no beds. [phone]. Have tried constantly for 15 minutes to call [facility] and no one answers. Line rings abut 10 times and then cuts off. [phone] Called Admissions at [facility] and she has the referral and will let CM know shortly if they will accept [facility] Physical Therapy Treatment PT Discharge Recommendations: alf facility placement Distance Ambulated (ft): 30 Device: [...] of care until patient is discharged from [facility]. Objective 04/21/22 1401 General Family/Caregiver Present No [...] PT Plan Skilled PT PT Discharge Recommendations alf facility placement Goals/Education Encounter Problems Encounter Problems [...] Understanding Education Comments No comments found. 04/21/22 4616 Clinical Encounter Type Visited With Patient Time Spent 15 Minutes Type of Contact Introduction SPIRITUAL CARE ASSESSMENT Spiritual Care Assessment: Pt appropriate and coping peaceful and positive Spiritual Intervention: Active listening Hospitality provided Outcome: Pt shared feelings and treatment hopes Plan: PC will return at pt/family request. DR Simpson called back and he is in surgery off site and unable to enter an order Order received for Lovenox 40mg daily for 7 days DC aspirin. Called [facility]. [facility] they have the referral and could be able to answer within an hour if they will be able to accept. Message left for Dr Simpson as patient can not take aspirin for a new anticoag order Called [facility] and spoke to the front end software developer. [phone]. Admissions is not in for another hour or two. She states they do have beds and faxed the referral to [phone] Patient would like [facility]. Referral sent and message left for Admissions Belen Cast [phone] but they are an IPR and since the last IPR said she did not qualify for IPR CM is not anticipating an acceptance. Discussed with the patient and she would liek a referral to [facility] [place] [facility] Patient eating lunch. Declines at this time to finish eating. Will attempt again in pm. Patient would like the [facility] in [place], Called the [facility] spoke to Alphonso [phone] She does not have beds until Maybe next week. Updated the patient she would like to try [facility] called [phone] spoke to Connie she does not have beds until at less next Sunday Patient would like IPR at [facility] Called Cori [phone] fax [phone] In admissions with referral and she does [...] opiates, and antibiotics to surgical service. Disposition: alf facility. Subjective Patient reports pain is currently [...] Plan for discharge to Subacute Rehab Facility ([facility] or [facility]) when cleared by PT and [...] d/c to SNF when able. 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, initial encounter ([facility]) Past Medical History: Diagnosis Date Anxiety Arthritis Chronic pain disorder COPD (chronic obstructive pulmonary disease) ([facility]) GERD (gastroesophageal reflux disease) Hypertension Pulmonary embolism ([facility]) 2019 Wears dentures Wears glasses Past Surgical [...] of Steps 5 Prior Function Level of [place] Independent with mobility and functional transfers Receives [...] 1-2 times per day PT Discharge Recommendations alf facility placement PT - Evaluation Status Complete [...] what SNF she wants to go to [facility]. Brother will transport. CM will complete assessment tomorrow However Referral to [facility] faxed to [phone] still need P.T. 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 Patient has not arrived to the IP floor for CM assessment Will be seen tomorrow Pain rated at 7 but respiratory rate as low as 9 per minute. Vital signs stable. Meets criteria for discharge/transfer from PACU. documented in this encounter [facility] 04-22-2022 Hospital course Narrative Coumadin-At discharge please follow up with your prescribing provider regarding follow up/labs and appointment. Please follow surgeon's discharge instructions and prescription directions. Surgeon' discharge instructions are in patient's folder- FOLLOW SURGEON INSTRUCTION SHEETS Contact Surgeon's office with any questions/concerns [phone] [facility] -PT/OT [...] (see Additional Instructions)LAST DOSE /12 MEDS PER [facility] Additional Instructions: Instructions to prepare for [...] prior to your surgery. Check in at sales receptionist desk [address] [place] [address]. If Outpatient, these additional instructions apply: An adult must stay with you the whole time you are here and drive you home. An adult must stay with you at home for 24 hours due to Anesthesia. If you have LUPE, you are required to stay 3 hours after your surgery before we can discharge you. documented in this encounter [facility] 04-20-2022 Procedure note Denies need to void. Pad beneath pt dry. [facility] 04-20-2022 Procedure note Denies need to void. 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 PROCEDURE: Left knee arthrotomy, excision of hardware from the patella, lateral retinacular release, proximal realignment of the extensor mechanism. SURGEON: Calos Smith MD SERVICE ORDER TAKER: Jelani Burgos PA-C. Mr. Burgos was required [...] cleared by general medical consultants, admitted to [facility], evaluated by the anesthesia team. She is [...] 04/20/2022 15:47:00 LEANN/ROCIO documented in this encounter [facility] 04-20-2022 Consult note Associated Order (s): IP [...] found for this or any previous visit. [facility] 04-20-2022 Consult note Associated Order (s): IP [...] any previous visit. documented in this encounter [facility] 04-20-2022 Procedure note All medications administered per Whitley Kelley SN witnessed by myself. [facility] 04-20-[address] Smith notified of patient reporting history of MRSA a couple years ago, has an allergy to Vancomycin and Ancef, currently has Clindamycin ordered. No new orders. [facility] 04-20-2022 History and physical note History and Physical Update ( H&P completed within the previous thirty days ) I personally reviewed the History and Physical, interviewed and examined the patient prior to surgery. No changes have occurred in the patient's condition since the History and Physical was completed. [facility] 04-20-2022 History and physical note History and Physical Update ( H&P completed within the previous thirty days ) I personally reviewed the History and Physical, interviewed and examined the patient prior to surgery. No changes have occurred in the patient's condition since the History and Physical was completed. 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 PROCEDURE: Left knee arthrotomy, excision of hardware from the patella, lateral retinacular release, proximal realignment of the extensor mechanism. SURGEON: Calos Smith MD SERVICE ORDER TAKER: Jelani Burgos PA-C. Mr. Burgos was required [...] cleared by general medical consultants, admitted to [facility], evaluated by the anesthesia team. She is [...] CALOS SMITH MD TT: 04/20/2022 15:47:00 LEANN/ROCIO [facility] 01-06-2022 History of Present illness Narrative All discharge criteria for discharge to home met, medically & surgically. BP u to WNL, tolerating up to bathroom w/o dizziness, lighthedeness. Report called to , station 2 questions answered. Notified Metoprolol and imdur held prior to discharge. Verbalized understanding. Plasma Flow activated for transport to [place]. Per brother. Chemical ice packs for comfort promotion. [facility] with patient and her brother will be here between 9and 10am to transport to [facility]. Faxed HENS Rx' surgeon instruction sheets and AVS to [facility] at [phone]. Dischareg folder to nursing for discharge to [facility]. Rx's in folder for tramadol Oxycodone valium gabapentin restoril Surgeon instruction sheets AVS Transfer Summary Number for report to RN [phone] station 2 [facility] - [facility]ESS [...] from last 7 days Lab Units 01/05/22 03501/04/22452 HEMOGLOBIN g/dL 10.7* 10.8* HEMATOCRIT % 35.6 [...] Results from last 7 days Lab Units 01/05/2235201/04/22452 WBC AUTO K/mcL 12.7* 14.6* HEMOGLOBIN g/dL [...] mid left lung, likely atelectasis or scarring. [place] thanks you for the opportunity to care for your patient. Workstation ID: [id number] - [id number] Dictated By: Garo Albarado MD 01/04/2021 11:41 Assigned Physician: Garo Albarado MD Reviewed and Electronically Signed By: Garo Albarado MD 01/04/2021 11:45 Transcribed by: STEW 01/04/2021 11:41 Technologist: AGRICULTURAL EDUCATION PROFESSOR STRESS TEST No results found for this [...] 3 Days Post-Op: Right total knee arthroplasty 56978 - KS ARTHROPLASTY KNEE CONDYLE&PLATEAU MED/LAT CPTS W/WO PATELLA [...] Post-Op status post Right total knee arthroplasty 89227 - [place] ARTHROPLASTY KNEE CONDYLE&PLATEAU MED/LAT CPTS W/WO PATELLA [...] to discharge to an impatient unit or care home facility. [facility]) Orthopaedic Surgery Progress Note 2 Days Post-Op: Right total knee arthroplasty 75871 - [place] ARTHROPLASTY KNEE CONDYLE&PLATEAU MED/LAT CPTS W/WO PATELLA [...] Post-Op status post Right total knee arthroplasty 07163 - [place] ARTHROPLASTY KNEE CONDYLE&PLATEAU MED/LAT CPTS W/WO PATELLA RESURFACING . - WBAT on the operative extremity - home coumadin, continue lovenox bridge, INR yesterday 0.9 for DVT ppx - PT - Follow-up in clinic in 6 weeks - Plan for discharge to Subacute Rehab Facility ([facility] or [facility]) when cleared by PT and [...] am. Message left for Admissions Christy at [place] cell [phone] and office [phone] [facility] Custom Designer provided Admissions cell of Christy [phone] Called her and she still does not have an answer from the admissions team and D.O.N. she will call when she knows. Physical Therapy Treatment PT Discharge Recommendations: alf facility placement, Inpatient rehab facility placement Distance [...] Subjective Pt agreeable to treatment. Requesting this YARN SORTER move her LEs out of the bed. Education and instruction provided. Requesting bathroom urgently. Mobility noted below. At end of treatment pt sitting in chair awaiting lunch. Continue to follow until pt is d/c from [facility]. Vitals/Pain Pain Assessment Pain Assessment: 0-10 Pain [...] PT Plan: Skilled PT PT Discharge Recommendations: alf facility placement, Inpatient rehab facility placement Goals: [...] plan to SNF. Awaiting to hear from [place] for acceptance. Discussed transportation and her brother can transport. Encouraged IS as patient still needs to wean from oxygen. Message left for Admissions at [facility]. [phone] to see if they can accept. GENERAL [...] 7 days Lab Units 01/05/22 0353 01/04/22 0458 HEMOGLOBIN g/dL 10.7* 10.8* HEMATOCRIT % 35.6 [...] to discharge to an inpatient unit or care home facility. NN met with the pt at bedside. Pt would like a referral sent to [facility]. She will continue to review the list for choices 2 and 3 in the event [place] cannot accept. Referral sent via [email or web address] Fax. 01/04/22 1531 Clinical Encounter Type Visited With Patient Time Spent 20 Minutes Type of Contact Introduction SPIRITUAL CARE ASSESSMENT Spiritual Care Assessment: Pt appropriate and coping peaceful and positive calderon and family are supportive Spiritual Intervention: Active listening Discuss coping style Hospitality provided [place] given Outcome: Pt shared feelings and values expressed gratitude Plan: PC will return at pt/family request. CM received IB call from Cori with [facility]. They do not have bed availability for patient until at least next Sunday. CM will print Medicare SNF list and provide to patient for subsequent choices. Physical Therapy Treatment PT Discharge Recommendations: alf facility placement, Inpatient rehab facility placement Distance [...] completed with mod/max assist. Mobility noted below. [place] pillow placed at right foot to assist in pt right LE positioning as pt position of comfort is with external rotation and knee slightly bent. Education provided. Continue as per PT POC until pt is d/c from [facility]. Vitals/Pain Pain Assessment Pain Assessment: 0-10 Pain [...] PT Plan: Skilled PT PT Discharge Recommendations: alf facility placement, Inpatient rehab facility placement Goals: [...] End: 01/06/22 Outcomes Date/Time User Outcome 01/04/22 Kylie Kelley PTA Progressing Goal: Pt will demo [...] comments found. Voice message left for Cori [phone] at [facility]. NN inquiring about the status of referral. CM phone number provided for a return call. Physical Therapy Treatment PT Discharge Recommendations: Inpatient rehab facility placement, alf facility placement Distance Ambulated (ft): 30 Device: [...] PT Discharge Recommendations: Inpatient rehab facility placement, alf facility placement Goals: Encounter Problems Encounter Problems [...] from last 7 days Lab Units 01/04/22 045 CALCIUM mg/dL 8.9 GLUCOSE 0 Lab Value [...] 11:45 Transcribed by: STEW 01/04/2021 11:41 Technologist: AGRICULTURAL EDUCATION PROFESSOR STRESS TEST No results found for this [...] 1 Day Post-Op: Right total knee arthroplasty 77551 - [place] ARTHROPLASTY KNEE CONDYLE&PLATEAU MED/LAT CPTS W/WO PATELLA [...] Post-Op status post Right total knee arthroplasty 21632 - [place] ARTHROPLASTY KNEE CONDYLE&PLATEAU MED/LAT CPTS W/WO PATELLA [...] tomorrow to acquire update of needed. # [phone] PT note is in and this CM faxed the referral to the requested IPR for review Physical Therapy Physical Therapy Evaluation PT Discharge Recommendations: alf facility placement Distance Ambulated (ft): 30 Device: [...] knee. Pt. Plans to discharge to [facility] as lives alone. Pt. Has 5 steps charity. Rails to enter home. Continue PT tx. Per POC. Patient Active Problem List Diagnosis Pain management Unilateral primary osteoarthritis, right knee S/P TKR (total knee replacement), right Past Medical History: Diagnosis Date Anxiety Arthritis COPD (chronic obstructive pulmonary disease) ([facility]) Hypertension Pulmonary embolism ([facility]) Wears dentures Wears glasses Past Surgical History: [...] Level of Function: Prior Function Level of [place]: Independent with mobility and functional transfers Receives [...] 1-2 times per day PT Discharge Recommendations: alf facility placement PT - Evaluation Status: Complete [...] transitioning home alone. Patient has requested [facility]. Patient states her brother will plan to provide transportation at time of discharge. CM was able to reach the admissions dept and the facility is an IPR, no swing bed/ TCU unit at this facility. Patient with multiple co morbidities and this CM will fax the referral for review to [phone] for review. Patient was educated a SNF [...] 11:45 Transcribed by: STEW 01/04/2021 11:41 Technologist: AGRICULTURAL EDUCATION PROFESSOR STRESS TEST No results found for this [...] Discharge Planning County Information County of Residence [place] Patient Information Accompanied by/Relationship telephone call Patient arrived from? Home Support System Extended family Referral To Financial Resources Other (Comment) (no needs identified) Community Resources Other (Comment) (no needs identified) Services Requested DME potential needs No Destination/Placement [facility] Rehab Potential Good CM made telephone call to patient preoperatively to complete initial assessment for discharge planning. Home address and PCP reviewed. Home assessment completed. Patient lives alone in a 1 story home, 5 steps/handrail to enter. Bathroom: tub shower, shower chair. DME reviewed, denies need. Plan: discharge to [facility], brother to provide transportation. Covid testing education provided, patient will schedule. All questions/concerns addressed. documented in this encounter [facility] 01-05-2022 Hospital course Narrative Prescriptions for discharge [...] clinic regarding Labs and lovenox bridge. SNF PHARMACOGENETICIST TO HELP MANAGE TO THERAPEUTIC LEVEL -Plasma [...] prior to your surgery. Check in at sales receptionist desk [address] [facility], [place] [address]. Medication instructions per [facility] If Outpatient, these additional instructions apply: An adult must stay with you the whole time you are here and drive you home. An adult must stay with you at home for 24 hours due to Anesthesia. If you have LUPE, you are required to stay 3 hours after your surgery before we can discharge you. documented in this encounter [facility] 01-03-2022 Procedure note Family updated per phone. [facility] 01-03-2022 Procedure note Family updated per phone. Trinity Godinez 1955 ? Retention: Exchange Retention Policy (10 years) Expires: Sun01/01/2032 10:37 AM Retention: Exchange Retention Policy (10 years) Expires: Sun01/01/2032 10:37 AM [email or web address] EXTERNAL CAUTION: This email originated from outside the organization. Do not click links or open any attachments unless you recognize the sender and know the content is safe. If you believe this is spam, forward the message to [email or web address]. - [facility], A Member of [facility] OPERATIVE REPORT PATIENT NAME: Trinity Godinez DATE OF : 1955 [facility]#: [id number] SURGEON: Calos Smith MD, FACS DATE OF SERVICE: 01/03/2022 DATE OF SURGERY: 01/03/2022 PREOPERATIVE DIAGNOSIS: OA right knee (M17.11) POSTOPERATIVE DIAGNOSIS: OA right knee (M17.11) PROCEDURE: Primary Right Total Knee Arthroplasty (55763) Femoral Component: Heidi Biomet Vanguard Cruciate Retaining , Size: 62.5mm Tibial Component: Biomet Fixed I-Beam Stem Tibial Tray 75mm Patella Component: Biomet Series A Standard Patella , 31mm Polyethylene: Vanguard ArCom anterior stabilized 12mm Fixation: Biomet Bone Cement with 1g Vancomycin ATTENDING SURGEON: Calos Smith MD, FACS SERVICE ORDER TAKER: STEPHAN Diane DO INDICATIONS: Patient is a [...] awake, alert, and stable in good condition. SERVICE ORDER TAKER/ATTENDING PARTICIPATION: STEPHAN Diane DO assisted with proper [...] Calos Smith MD, FACS on 01/03/2022 10:28:45 [facility], A Member of [facility] OPERATIVE REPORT PATIENT NAME: Trinity Godinez DATE OF : 1955 [facility]#: [id number] SURGEON: Calos Smith MD, FACS DATE OF SERVICE: 01/03/2022 DATE OF SURGERY: 01/03/2022 REF [id number] LOT [id number] Vanguard Knee System 62.5 MM Uncoated knee femur prosthesis, metallic Use By 2031-11-13 () [id number] () 558019 (10) [id number] REF [id number] LOT [id number] Biomet Knee System 75 mm Uncoated knee tibia prosthesis, metallic Use By 2031-10-11 () [id number] (17 079624 (10) [id number] REF [id number] LOT [id number] Vanguard Knee System 31 mm 8 mm Polyethylene patella prosthesis Use By 2026-10-10 () [id number] (79) [id number] (42) [id number] REF [id number] LOT [id number] Vanguard Knee System 12 MM 75 MM Tibial insert Use By 2026-12-22 () [id number] (95) 127770 (26) [id number] documented in this encounter [facility] 01-03-2022 Procedure note Trinity Godinez 1955 ? Retention: Exchange Retention Policy (10 years) Expires: Sun01/01/2032 10:37 AM Retention: Exchange Retention Policy (10 years) Expires: Sun01/01/2032 10:37 AM [email or web address] EXTERNAL CAUTION: This email originated from outside the organization. Do not click links or open any attachments unless you recognize the sender and know the content is safe. If you believe this is spam, forward the message to [email or web address]. - [facility], A Member of [facility] OPERATIVE REPORT PATIENT NAME: Trinity Godinez DATE OF : 1955 [facility]#: [id number] SURGEON: Calos Smith MD, FACS DATE OF SERVICE: 01/03/2022 DATE OF SURGERY: 01/03/2022 PREOPERATIVE DIAGNOSIS: OA right knee (M17.11) POSTOPERATIVE DIAGNOSIS: OA right knee (M17.11) PROCEDURE: Primary Right Total Knee Arthroplasty (50820) Femoral Component: Heidi Biomet Vanguard Cruciate Retaining , Size: 62.5mm Tibial Component: Biomet Fixed I-Beam Stem Tibial Tray 75mm Patella Component: Biomet Series A Standard Patella , 31mm Polyethylene: Vanguard ArCom anterior stabilized 12mm Fixation: Biomet Bone Cement with 1g Vancomycin ATTENDING SURGEON: Calos Smith MD, FACS SERVICE ORDER TAKER: STEPHAN Diane DO INDICATIONS: Patient is a [...] awake, alert, and stable in good condition. SERVICE ORDER TAKER/ATTENDING PARTICIPATION: STEPHAN Diane DO assisted with proper [...] Calos Smith MD, FACS on 01/03/2022 10:28:45 [facility], A Member of [facility] OPERATIVE REPORT PATIENT NAME: Trinity Godinez DATE OF : 1955 [facility]#: [id number] SURGEON: Calos Smith MD, FACS DATE OF SERVICE: 01/03/2022 DATE OF SURGERY: 01/03/2022 REF [id number] LOT [id number] Vanguard Knee System 62.5 MM Uncoated knee femur prosthesis, metallic Use By 2031-11-13 () [id number] ( 919883 (53) [id number] REF [id number] LOT [id number] Biomet Knee System 75 mm Uncoated knee tibia prosthesis, metallic Use By 2031-10-11 () [id number] (43) 404180 (10) [id number] REF [id number] LOT [id number] Vanguard Knee System 31 mm 8 mm Polyethylene patella prosthesis Use By 2026-10-10 () [id number] (23) 519133 (99) [id number] REF [id number] LOT [id number] Vanguard Knee System 12 MM 75 MM Tibial insert Use By 2026-12-22 () [id number] (81) [id number] [phone] [facility] 01-03-2022 History and physical note History and Physical Update ( H&P completed within the previous thirty days ) I personally reviewed the History and Physical, interviewed and examined the patient prior to surgery. No changes have occurred in the patient's condition since the History and Physical was completed. [facility] 01-03-2022 History and physical note History and Physical Update ( H&P completed within the previous thirty days ) I personally reviewed the History and Physical, interviewed and examined the patient prior to surgery. No changes have occurred in the patient's condition since the History and Physical was completed. documented in this encounter [facility] 10-23-2021 Note PROCEDURE: XR KNEE R T 4V or > HISTORY: Pain of right knee joint , chronic COMPARISON: XR knee right 06/20/2020 FINDINGS: BONES:Narrowing of all 3 joint spaces, greatest involving the anterior compartment. Irregular sclerosis of the tibial plateau suggesting possible fccc-xd-pvfo contact and weightbearing. SOFT TISSUES:No visible soft [...] authenticated by: GARO CASILLAS Date: 2021-10-23 07:14 [facility] 01-08-2021 Physician Hospital Discharge summary ATTENTION: CUTOVER PATIENT Please Note: This patient was being treated during the EHR conversion from [facility] to [facility] on 01/08/2021 There are two medical records for this patient; one in [facility] and one in [facility]. To see the remainder of the medical record, refer to the [facility] medical record. If you have questions, please contact the Health Information Management Department Patient Name: TRINITY GODINEZ Patient [facility] 01-08-2021 History of Present illness Narrative Faxed orders to [facility] AT [phone] Discharge fodler to nursing for discharge to [facility]. Rx in folder tylenol tramadol oxycodone. Physical Therapy Physical Therapy Treatment Subjective: Pt declined to participate in PT treatment this afternoon, pt stated she would like to rest. Will continue to follow for skilled PT until D/C from [facility]. Problem: Mobility Goal: Patient will [...] from stand Outcome: Progressing Message left for [facility] to see when they can accept the patient Spoke to Delroy at [facility] she does not want the patient to discharge uptil after 1500. Spoke with patient and Granddaughter is planning to be here at that time anyways. Instructed to take the Discharge folder to [facility] and give the entire folder [...] Yudith Reynolds PT Progressing Goal: Patient will transfer sit [...] Knee Immobilizer when up. May discharge to [facility] if OK with Gen Med [...] with out-of-bed. Discharge Plan: today to [facility]. LOS: 5 days VALARIE Gan Date: 01/08/2021 [...] will need to follow-up with her surveillance physician/weather forecaster post discharge Acute Post Hemorrhagic Anemia (D62) [...] from Last 1 Encounters: 01/06/21 30.41 kg/m @xbazul43@ No intake/output data recorded. No intake/output data [...] for: [facility] documented in this encounter [facility] 01-08-2021 Hospital course Narrative Patient will need an INR checked within 3 days of discharge to [facility] for warfarin management to be monitored by [facility] physician. Also needs outpatient follow-up with nephrology for monitoring of kidney function. Please follow-up with your weather forecaster for ongoing surveillance of your kidney function. You should have an INR checked within 3 days of discharge to [facility] for management of your warfarin. documented in this encounter [facility] 01-08-2021 Hospital Discharge instructions Marsha Doan RN [...] alcohol or with certain drugs. This includes ghvr-ayt-yzyhafe medicines. Make sure your doctor knows about [...] Where can you learn more? Go to https://www.Syrinix.Unbxd/david chart Enter P175 in the search box to learn more about Learning About Managing Acute Pain at Home. Current as of: July 08, 2020 Content Version: 13.0 [employer]edo. Care instructions adapted under license by your healthcare professional. If you have questions about a medical condition or this instruction, always ask your healthcare professional. [employer] disclaims any warranty or liability for your [...] Where can you learn more? Go to [email or web address].[email or web address] Security Teammy chart Enter A180 in the search box to learn more about Learning About Opioids and Acute Pain. Current as of: July 08, 2020 Content Version: 13.0 Preedo. Care instructions adapted under license by your healthcare professional. If you have questions about a medical condition or this instruction, always ask your healthcare professional. [employer] disclaims any warranty or liability for your use of this information. The following attachments cannot be sent through Care Everywhere.Incentive Spirometer: General Info (Comoran)Constipation (Comoran)DVT (Deep Vein Thrombosis): General Info (Comoran)Fall Prevention (Comoran)Opioids: General Info (Comoran)documented in this encounter [facility] 01-07-2021 Hospital Progress note Patient: TRINITY GODINEZ MRN: [id number] Age: 65 years Sex: Female : 1955 Associated Diagnoses: None Author: Rogelio Leyva MD Assessment Assessment Diagnosis: Primary osteoarthritis of left knee (QZC18-MM M17.12, Working, Medical), Unilateral primary osteoarthritis, left [...] will need to follow-up with her surveillance physician/weather forecaster post discharge Acute Post Hemorrhagic Anemia (D62) [...] Supervising Physician Comments (more content not included)... [facility] 01-07-2021 Note ID NOW COVID-19_Abbo tt Diagnostics [employer]. [facility] 01-07-2021 Hospital Progress note Patient: TRINITY GODINEZ MRN: ([id number] Age: 65 years Sex: Female : 1955 [...] % (01/05 05:) Lymphocyte Percent 12.7 % (01/05 05:) Monocyte Percent 8.1 % (01/05 05:) Eosinophil Percent 2.2 % (01/05 05:) Basophil Percent 0.9 % (01/05) Neutrophil Absolute 5.7 thou/mcL (01/05 05:) Lymphocyte Absolute 0.9 thou/mcL (01/05 05:) Monocyte Absolute 0.6 thou/mcL (01/05 05:) Eosinophil Absolute 0.2 thou/mcL (01/05 05:) Basophil Absolute 0.1 thou/mcL (01/05 05:) ABO Group A (01/05 05:) A (01/05 05:) Rh Type POSITIVE (01/05 05:) POSITIVE (01/05 05:) Unit # [id number] (01/05 10:56) [id number] (01/05 10:56) List of X-rays performed in last 36 hours No X-rays charted within the last 36 hours I have reviewed the available microbiologic data available at the time (more content not included)... [facility] 01-06-2021 Hospital Progress note Patient: TRINITY GODINEZ MRN: [id number] Age: 65 years Sex: Female : 1955 Associated Diagnoses: None Author: Rogelio Leyva MD Assessment Assessment Diagnosis: Primary osteoarthritis of left knee (QCO62-JA M17.12, Working, Medical), Unilateral primary osteoarthritis, left [...] as needed O2 at bedtime at the [facility]. Nocturnal/supine desaturation. History of congestive [...] will need to follow-up with her surveillance physician/weather forecaster post discharge Acute Post Hemorrhagic Anemia (D62) -received 2 units of PRBCs for hemoglobin 6.8 on 01/05/2021. Hemoglobin 8.8 this morning adequate response. Tolerated transfusion well. No indication for additional transfusion. We will continue to monitor Hold discharge for today. Suspect would like to watch another 24 hours to make sure her renal function continues to improve. Probable plans for discharge to care home facility in the next 24 hours Supervising Physician Comments Documentation By: Consulting (more content not included)... [facility] 01-05-2021 Hospital Progress note Patient: TRINITY GODINEZ MRN: ([id number] Age: 65 years Sex: Female : 1955 Associated Diagnoses: None Author: Rogelio Leyva MD Assessment Assessment Diagnosis: Primary osteoarthritis of left knee (RCD51-EJ M17.12, Working, Medical), Unilateral primary osteoarthritis, left [...] to renal issue (more content not included)... [facility] 01-05-2021 Hospital Progress note Patient: RTINITY GODINEZ MRN: [id number] Age: 65 years Sex: Female : 1955 [...] 05:) Glucose POCT No result BUN 36 (01/05) 45 (01/04 05:) Creatinine 2.05 (01/05 05:) [...] (01/04) COAGULATION Partial Thromboplastin (aPTT) 25.0 Sec (01/03 10:) INR 1.1 (01/05) 1.0 (01/04) Prothrombintime (PT) [...] Percent 8.1 % (01/05) 7.5 % (01/04 05:07) Eosinophil Percent 2.2 % (01/05) 0.2 % (01/04 05:07) Basophil Percent 0.9 % (01/05) 0.3 % (01/04 05:07) ABO Group A (01/05) A (01/05) Rh Type POSITIVE (01/05) POSITIVE (01/05) Antibody Screen NEGATIVE (01/03 10:05) NEGATIVE (01/03 10:05) Unit # [id number] (01/05 06:44) [id number] (01/05) List of X-rays performed in l (more content not included)... [facility] 01-04-2021 Surgery Surgical operation note DICTATED BY: [...] restrictor on the femur. We used a [place] size D tibial cone. Fixation is Biomet bone cement mixed with 1 g vancomycin. This is the gentamicin laden Biomet cement mixed with 1 g vancomycin. SURGEON: Calos Smith MD SERVICE ORDER TAKER: MD Satish Cheng MD assisted with proper [...] cleared by General Medical consultants, admitted to [facility]. At this point, she was seen by [...] the tibia. We took our reamers from [employer] and created the cone for this enhanced [...] distally. We ap (more content not included)... [facility] 01-04-2021 Hospital Progress note Patient: TRINITY GODINEZ MRN: [id number] Age: 65 years Sex: Female : 1955 Associated Diagnoses: None Author: Rogelio Leyva MD Assessment Assessment Diagnosis: Primary osteoarthritis of left knee (JHS67-PU M17.12, Working, Medical), Unspecified osteoarthritis, unspecified site [...] 3.9 cm. Patient (more content not included)... [facility] 01-03-2021 History and physical note Patient: TRINITY GODINEZ MRN: ([id number] Age: 65 years Sex: Female : 1955 Associated Diagnoses: None Author: Rogelio Leyva MD Impression Diagnosis Chronic osteoarthritis (BUA45-LE M19.90, 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 Plan Osteoarthritis Left Knee/left [...] as needed O2 at bedtime at the [facility]. Nocturnal/supine desaturation. GERD - (K21.9) [...] will need to follow-up with her surveillance physician/weather forecaster post discharge Supervising Physician Comments Documentation By: [...] Dexamethasone 10 mg noted given Discussed with COPYING MACHINE REPAIRER Subjective: Rates pain currently -none currently early PACU No nausea, vomiting No Chest pain, sob Past Medical History CHF HTN COPD O2 prn-while in [facility], her O2 sat drops when laying down [...] Tendencies: Surgical/Procedure Hx Revision of knee arthroplasty ([id number]) on 01/03/2021 at 65 Years. Comments: 01/03/2021 13:17 NEIDA Hinson RN , Zoya Berrios Left knee reimplantation Debridement ([id number]) on 11/19/2020 at 65 Years. Comments: 11/19/2020 [...] CBC,SR,Creat,CRP, Vanco Trough, fax to Dr. Hicks [phone] 3)IV ATB UNTIL reimplant 4)Call Dr. Hicks [...] Detail Patient: TRINITY GODINEZ MRN: ([facility])-[id number] Age: 65 years Sex: Female : 1955 Associated Diagnoses: None Author: Alicia Connell RN Impression Diagnosis Chronic osteoarthritis (FBB98-TN M19.90, 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 Plan Supervising Physician Comments Documentation By: Consulting Physician. Chief Complaint Postop Medical Co management History of Present Illness 65 y/o F who is S/P Left TK revision by Dr. Smith who requests post op medical management. Data obtained from pre op H&P. Past Medical History CHF HTN COPD O2 prn-while in [place] [facility], her O2 sat drops when laying down [...] Bleeding Tendencies: Surgical/Procedure Hx Debridement (SNOMED CT [id number]) performed by Ming Quinn MD , Calos [...] CBC,SR,Creat,CRP, Vanco Trough, fax to Dr. Hicks [phone] 3)IV ATB UNTIL reimplant 4)Call Dr. Hicks [...] last 36 hours documented in this encounter [facility] 01-03-2021 Mycobacterium sp Org specific cx Ql (Unsp spec) [facility] Microbiology PROCEDURE: Culture AFB and Stain SOURCE: [...] CONTRIBUTOR_SYSTEM, CO_PN NO ACID FAST BACILLI SEEN [facility] Comment on above: Performed By: #### 5 0941-4 ####[address] 01-03-2021 Mycobacterium sp Org specific cx Ql (Unsp spec) [facility] Microbiology PROCEDURE: Culture AFB and Stain SOURCE: [...] CONTRIBUTOR_SYSTEM, CO_PN NO ACID FAST BACILLI SEEN [facility] Comment on above: Performed By: #### 5 0941-4 ####[address] 01-03-2021 Mycobacterium sp Org specific cx Ql (Unsp spec) [facility] Microbiology PROCEDURE: Culture AFB and Stain SOURCE: [...] CONTRIBUTOR_SYSTEM, CO_PN NO ACID FAST BACILLI SEEN [facility] Comment on above: Performed By: #### 5 0941-4 ####[address] 01-03-2021 Mycobacterium sp Org specific cx Ql (Unsp spec) [facility] Microbiology PROCEDURE: Culture AFB and Stain SOURCE: [...] CONTRIBUTOR_SYSTEM, CO_PN NO ACID FAST BACILLI SEEN [facility] Comment on above: Performed By: #### 5 0941-4 ####[address] 01-03-2021 Bacteria identified Sterile body fluid culture Nom (Unsp spec) [facility] Microbiology PROCEDURE: Culture Body Fluid + Susceptibility [...] RARE POLYS No Epithelials NO ORGANISMS SEEN [facility] Comment on above: Performed By: #### 6 36-1 ####[address] 01-03-2021 Mycobacterium sp Org specific cx Ql (Unsp spec) [facility] Microbiology PROCEDURE: Culture AFB and Stain SOURCE: [...] CONTRIBUTOR_SYSTEM, CO_PN NO ACID FAST BACILLI SEEN [facility] Comment on above: Performed By: #### 5 0941-4 ####[address] 01-03-2021 Anesthesiology Preoperative evaluation and management note Patient: TRINITY GODINEZ MRN: ([id number] Age: 65 years Sex: Female : 1955 Associated Diagnoses: None Author: Pramod Parry MD Preoperative Information Planned Procedure Left Knee Revision Histories Past Medical History: Active Anxiety CHF (congestive heart failure) COPD (chronic obstructive pulmonary disease) Depression Hypertension Osteoarthritis PE (pulmonary thromboembolism) - 2018 Peripherally inserted central catheter in place - R UE 4FR SL PICC Resolved COVID- - 05/2020 Anesthesia History: No previous anesthetic complications Medications [...] Creat,CRP, Vanco Trough, fax to Dr. Hicks [phone])IV ATB UNTIL reimplant4)Call Dr. Hicks for F/C/S, N/V/D, rash, [phone])F/U with Dr Hicks in 4-5 weeks COMMENTS: [...] Yes. The p (more content not included)... [facility] 01-03-2021 Hospital Progress note Patient: TRINITY GODINEZ MRN: [id number] Age: 65 years Sex: Female : 1955 [...] intraneural local anesthetic injection throughout the procedure. [facility] 01-03-2021 Hospital Progress note Patient: TRINITY GODINEZ MRN: [id number] Age: 65 years Sex: Female : 1955 [...] intraneural local anesthetic injection throughout the procedure. [facility] 01-03-2021 Procedure note DICTATED BY: CALOS SMITH [...] restrictor on the femur. We used a [place] size D tibial cone. Fixation is Biomet bone cement mixed with 1 g vancomycin. This is the gentamicin laden Biomet cement mixed with 1 g vancomycin. SURGEON: Calos Smith MD SERVICE ORDER TAKER: MD Satish Cheng MD assisted with proper [...] cleared by General Medical consultants, admitted to [facility]. At this point, she was seen by [...] the tibia. We took our reamers from [employer] and created the cone for this enhanced [...] and we did close this over a #10-Uzbek drain. We closed the subcutaneous tissues with 2-0 Vicryl and the skin with levira. Applied a very bulky dressing and took the patient to the Post-Anesthesia Care Unit in satisfactory condition. Roentgenographs showed satisfactory position and alignment of components. TRINITY GODINEZ Birthdate: 1955 D/01/03/2021 16:37:19 T/01/03/2021 20:53:46 VOICE JOB ID: [id number] Ramy Santos thanks you for the opportunity to care for your patient. DID: [id number] documented in this encounter [facility] 11-23-2020 Surgery Surgical operation note DICTATED BY: [...] to proceed and she is admitted to [facility], evaluated by the anesthesiologist, adductor canal block [...] cement from t (more content not included)... [facility] 11-22-2020 Hospital Progress note Patient: TRINITY GODINEZ MRN: ([facility])-[id number] [facility]: [id number] Age: 65 years Sex: Female : 1955 [...] (mL/min)-R 65.00 mL/min (11/22 04:50) 66.21 mL/min (11/21 04:30) BUN / Creatinine Ratio 17 (11/22 04:50) [...] N (11/22 13:) Device Identifier ID NOW COVID-19_[employer] EUA (11/22 13:) MPV 10.2 FL [...] Reactions (Selected) Sever (more content not included)... [facility] 11-22-2020 Hospital Progress note Patient: TRINITY GODINEZ MRN: [id number] Age: 65 years Sex: Female : 1955 Associated Diagnoses: None Author: Trey Martin MD Assessment Assessment Diagnosis: Osteoarthritis of left knee (SND44-OI M17.9, 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 Plan A medical consult [...] 2 / l (more content not included)... [facility] 11-22-2020 Note ID NOW COVID-19_Abbo tt [facility] 11-22-2020 Physician Hospital Discharge summary CLINICAL SUMMARY Please take this summary document to your follow up appointments. [facility] 11/22/20 14:48 [id number] [facility], [place]. [address] PATIENT INFORMATION Name: TRINITY GODINEZ Address: [address] [place] [id number] Age: 65 Years Phone: [phone] : 1955 12:00 MRN: [id number] Sex: Female Race: White Ethnicity: Not Hispan/Lat Admitted From: Clinic or [facility] Medical Service: Orthopedic Surgery Nurse Unit/Bed: (OR) [facility] 0221-01 Admit Date: 11/19/2020 09:38 PCP: Levi Shine MD PHYSICIANS INVOLVED WITH CARE Attending Physicians: Ming Quinn MD , [place] - Orthopaedic Surg Admitting Physician: Ming Quinn MD , Calos - Orthopaedic Surg Primary Care Physician:Levi Shine MD,[facility], - Consults: Shailesh VEGA , [...] CBC,SR,Creat,CRP, Vanco Trough, fax to Dr. Hicks [phone] 3)IV ATB UNTIL reimplant 4)Call Dr. Hicks [...] CBC,SR,Creat,CRP, Vanco Trough, fax to Dr. Hicks [phone] 3)IV ATB UNTIL reimplant 4)Call Dr. Hicks for F/C/S, N/V/D, rash, 5)F/U with Dr Hicks in 4-5 weeks. Refills: 0., Call Dr. Hicks if released from your facility before IV therapy completed; Notify Dr. Hicks if Patient is admitted to the hospital. Comment Freetext M (more content not included)... [facility] 11-21-2020 Hospital Progress note Patient: TRINITY GODINEZ MRN: ([id number] Age: 65 years Sex: Female : 1955 Associated Diagnoses: None Author: Shailesh VEGA , Grabiel Bhatia 1. Knee: Status post re-radical debridement. Intraoperative cultures presently pending. 2. History of infection: Trying to obtain culture reports from her Hospital in [place] from last January. 3. Disposition: Anticipate discharge [...] Creatinine 1.07 (11/21 04:30) Calcium Total 8.2 (11/22 03:30) Magnesium No result HEMATOLOGY WBC 7.0 (11/21 [...] Q4h, PRN: Itching/Pruri (more content not included)... [facility] 11-21-2020 Hospital Progress note Patient: TRINITY GODINEZ MRN: [id number] Age: 65 years Sex: Female : 1955 Associated Diagnoses: None Author: Andrew VEGA , Jose Carrasco Supervising Physician Comments Documentation By: Consulting Physician. Assessment Assessment Diagnosis: Osteoarthritis (IRK89-IN M19.90, 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 Plan Failed left TKR [...] lab test) CHEMISTRY (more content not included)... [facility] 11-20-2020 Hospital Progress note Patient: TRINITY GODINEZ MRN: [id number] [facility]: [id number] Age: 65 years Sex: Female : 1955 Associated Diagnoses: None Author: Andrew VEGA , Jose Carrasco Supervising Physician Comments Documentation By: Consulting Physician. Assessment Assessment Diagnosis: Osteoarthritis (LEH99-JS M19.90, 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 Plan Failed left TKR [...] rounds 11/20. Continue to monitor on the [place] protocol. Obesity: BMI 33. follow per [...] 246 (11/20 04:2 (more content not included)... [facility] 11-19-2020 Hospital Progress note Patient: TRINITY GODINEZ MRN: ([id number] Age: 65 years Sex: Female : 1955 Associated Diagnoses: None Author: Montana Reynoso MD Assessment Assessment Diagnosis: Osteoarthritis (MKX13-OM M19.90, 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 Plan Failed left TKR [...] Respiration: 11 (11/19 17:00) BP: 154/59 (11/19 17:00) Pulse Ox: 97 (11/19 16:00) Oxygen Delivery: [...] 16:24:17 See Radiology Report for More Detail [facility] 11-19-2020 Mycobacterium sp Org specific cx Ql (Unsp spec) [facility] Microbiology PROCEDURE: Culture AFB and Stain SOURCE: [...] CONTRIBUTOR_SYSTEM, CO_PN NO ACID FAST BACILLI SEEN [facility] Comment on above: Performed By: #### 5 0941-4 ####[address] 11-19-2020 Mycobacterium sp Org specific cx Ql (Unsp spec) [facility] Microbiology PROCEDURE: Culture AFB and Stain SOURCE: [...] CONTRIBUTOR_SYSTEM, CO_PN NO ACID FAST BACILLI SEEN [facility] Comment on above: Performed By: #### 5 0941-4 ####[address] 11-19-2020 Mycobacterium sp Org specific cx Ql (Unsp spec) [facility] Microbiology PROCEDURE: Culture AFB and Stain SOURCE: [...] CONTRIBUTOR_SYSTEM, CO_PN NO ACID FAST BACILLI SEEN [facility] Comment on above: Performed By: #### 5 0941-4 ####[address] 11-19-2020 Mycobacterium sp Org specific cx Ql (Unsp spec) [facility] Microbiology PROCEDURE: Culture AFB and Stain SOURCE: [...] CONTRIBUTOR_SYSTEM, CO_PN NO ACID FAST BACILLI SEEN [facility] Comment on above: Performed By: #### 5 0941-4 ####[address] 11-19-2020 Anesthesiology Preoperative evaluation and management note Patient: TRINITY GODINEZ MRN: ([id number] Age: 65 years Sex: Female : 1955 [...] 05:37:52 by Sarah BERMUDEZ , Ange Sloan [place] Medications: ascorbic acid 1,000 mg = 1 [...] mL, 1,000 m (more content not included)... [facility] 11-17-2020 Hospital Progress note Patient: TRINITY GODINEZ MRN: [id number] Age: 65 years Sex: Female : 1955 [...] intrathecal local anesthetic injection throughout the procedure. [facility] 11-17-2020 Anesthesiology Preoperative evaluation and management note Patient: TRINITY GODINEZ MRN: [id number] Age: 65 years Sex: Female : 1955 [...] 11:29:18 by Fely BERMUDEZ , Teresita Gibbs Home Medications: ascorbic acid 1,000 mg = 1 [...] 20 mL/hr, I (more content not included)... [facility] Evaluation note Diagnosis Pain management documented in this encounter [facility] note* Diagnosis Unilateral primary osteoarthritis, right knee S/P TKR (total knee replacement), right documented in this encounter [facility] note* Diagnosis 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, initial encounter ([facility] Primary Complication of internal left knee prosthesis ([facility]) documented in this encounter [facility] Discharge instructions* Attachments The following attachments cannot be sent through Care Everywhere. * Acute Pain Management: General Info (Comoran) * Opioids: Safe Use (Comoran) * Fall Prevention (Comoran) * DVT (Deep Vein Thrombosis): Prevention: General Info (Comoran) * Constipation (Comoran) * Incentive Spirometer: General Info (Comoran) * warfarin (oral) ([place]an) * Enoxaparin (Lovenox) ([place]) [facility]* Attachments The following attachments cannot be sent through Care Everywhere. * DVT (Deep Vein Thrombosis): Prevention: General Info ([place]an) * Incentive Spirometer: General Info ([place]an) * Fall Prevention ([place]an) * Opioids: General Info ([place]an) * Constipation ([place]an) * warfarin (oral) ([place]) * enoxaparin ([place]an) * Antibiotics: General Info ([place]an) [facility] N[facility]* Auth/Cert Specialty Diagnoses / Procedures Referred By Mirella t Referred To Contact Diagnoses Unilateral primary osteoarthritis, right knee M17.11 Procedures KS ARTHROPLASTY KNEE CONDYLE&PLATEAU MED/LAT CPTS W/WO PATELLA RESURFACING [place] ARTHROPLASTY KNEE CONDYLE&PLATEAU MED/LAT CPTS W/WO PATELLA RESURFACING Right total knee arthroplasty Calos Smith MD [address] [place] [address] Referral ID Status Reason Start Date Expiration Date Visits Re quested Visits Authorized [id number] 11/08/2021 1 1 [facility] Narrative* Auth/Cert Specialty Diagnoses / Procedures Referred By Contac t Referred To Contact Diagnoses 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, initial encounter ([facility] t84.093a Procedures KS RECONSTR DISLOCATING PATELLA W EXT REALIGNMENT AND/OR MUSCLE ADVMNT/RLS KS LATERAL RETINACULAR RELEASE OPEN Left knee extensor mechanism realignment with lateral retinacular release Calos Smith MD [address] [place] [address] [facility] [place] [address] [place] [address] Referral ID Status Reason Start Date Expiration Date Visits Re quested Visits Authorized [id number] 1 1 [facility] Summary Purpose Family History No Family History [...] Patient: TRINITY GODINEZ MRN : ([id number] Age: 65 years Sex: Female : 1955 Associated Diagnoses: None Author: Maximiliano Rush DO Subjective Subjective: Patient participated in [...] concluded. Note Patient: TRINITY GODINEZ MRN : ([id number] Age: 65 years Sex: Female : 1955 [...] section and content) DATE CREATED AUTHOR 11/28/2020 [facility] DATE CREATED AUTHOR AUTHOR'S ORGANIZ ATION 01/12/[address] [facility] DATE CREATED AUTHOR AUTHOR'S ORGANIZ ATION 03/04/2021 [facility] DATE CREATED AUTHOR AUTHOR'S ORGANIZ ATION 04/25/2021 [facility] DATE CREATED AUTHOR AUTHOR'S ORGANIZ ATION 04/30/2021 [facility] DATE CREATED AUTHOR AUTHOR'S ORGANIZ ATION 09/08/2022 [facility] DATE CREATED AUTHOR AUTHOR'S ORGANIZ ATION 02/21/2023 [facility] DATE CREATED AUTHOR AUTHOR'S ORGANIZ ATION 02/21/2023 [facility] Ordered Prescriptions (unrec ognized section and [...] Hernandez RN) 0607 (Given - Provider: Richard Hernandez RN)1429 (Given - Provider: Teresita Hirsch RN)2227 [...] administer immediately). 0835 (Given - Provider: Teresita Hircsh RN)2119 (Given - Provider: Richard Hernandez RN) [...] 1 dose, Preprocedure 1330 (Given - Provider: JAMES Brown) diazePAM (VALIUM) tablet 2.5 mg 2.5 mg, [...] 1,200 mg, oral, Nightly, First dose on Sun04/20/22 at 2100 202 (Given - Provider: Richard Hernandez RN) 2039 [...] intravenous, 2 times daily, First dose on Sun04/20/22 at 2100, Recovery & On Unit 2136 [...] DVTs 1624 (Given - Provider: Marsha Nixon, RN) Continuous Medication Order 04/20/2022 04/21/2022 04/22/2022 lactated [...] Care Teams (unrecognized sec tion and content) Art Critic Relationship Specialty Start Date End Date Levi Shine MD [address] [place] [address] PCP - General 11/22/20 Art Critic Relationship Specialty Start Date End Date Levi Shine MD [address] [place] [address] PCP - General 11/22/20 Art Critic Relationship Specialty Start Date End Date Levi Shine MD [address] [place] [address] PCP - General 11/22/20 FOR RECORDS PERTAINING [...] BE BASED ON THE PRIMARY CLINICAL RECORDS. [facility]. provides no warranty or guarantee of the accuracy or completeness of information in this document.
--- NOTE | 2023-04-26 12:35 | XR_ITS ---
The [place] [id number] Patient Name: GABRIELA GODINEZ MRN: [id number] date: 1955 Sex: F Assigned Patient Location: [facility] Current Patient Location: RAD Accession/Order Number: [id number] Exam Date: 04/26/2023 12:25 Report Date: 04/26/2023 13:34 At the request of: LEVI SHINE Procedure: XR ribs LT min 3V w CXR1V EXAMINATION: XR ribs LT min 3V w CXR1V HISTORY: rib pain R07.81 COMPARISON: 04/02/2023 FINDINGS: LUNGS: Hyperinflation. Linear opacities in both lung bases, stable, chronic scarring is favored PLEURA: No pneumothorax, effusion, or pleural thickening. MEDIASTINUM: No visible mass or adenopathy. CARDIAC: No cardiomegaly or cardiac silhouette abnormality. RIBS: Contour deformity of the left third through eighth ribs OTHER: Negative. XR/XR ribs LT min 3V w CXR1V IMPRESSION: Minimally displaced fractures left lateral third through eighth ribs, age indeterminate Hyperinflation with no new focal parenchymal infiltrates Electronically authenticated by: ABDIAS LAUGHLIN Date: 04/26/2023 13:34
== END 2023-04-26 12:10 | disposition home or self-care (01) ==
LOC: RAD 12:12
PROVIDERS: PCP Family Medicine; Visit Provider Family Medicine
DX: R07.81 Pleurodynia (principal); S22.42XA Multiple fractures of ribs, left side, initial encounter for closed fracture
CPT/HCPCS: 71101

== ENCOUNTER 2023-04-28 13:42 | Observation (INO) | payer MEDICARE, OTHER, SELFPAY ==
[2023-04-28] VITALS (22 sets, daily range): BP systolic 150–187; BP diastolic 71–104; PULSE 80–112; RESP 11–25; TEMP 36.5–37.1; O2SAT 92–98; BMI 27.4; BMI 27.0
--- NOTE | 2023-04-28 13:44 | XR_ITS ---
The [address] [address] Patient Name: GABRIELA GODINEZ MRN: [id number] date: 1955 Sex: F Assigned Patient Location: ER Current Patient Location: ER Accession/Order Number: [id number] Exam Date: 04/28/2023 14:08 Report Date: 04/28/2023 14:24 At the request of: JACKY HOWELL Procedure: XR chest 1V EXAM: Chest x-ray HISTORY: . week, recent rib fracture . COMPARISON: None. TECHNIQUE: Single view of the chest FINDINGS: Heart is normal in size. Vascularity is unremarkable. Increased markings are noted in the left mid to lower lung field. No consolidation is noted. Right lung is unremarkable. Arthritic changes of the right shoulder is noted. Surgical clips are noted overlying the right upper lobe laterally. EKG leads overlie the chest. XR/XR chest 1V IMPRESSION: Slight increased density in the left mid to lower lung field consistent with atelectasis or an early infiltrate. No consolidation noted. Electronically authenticated by: ABDIAS WEN Date: 04/28/2023 14:24
--- NOTE | 2023-04-28 13:44 | ECG_ITS ---
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
--- NOTE | 2023-04-28 13:45 | CT_ITS ---
The [address] [address] Patient Name: GABRIELA GODINEZ MRN: [id number] date: 1955 Sex: F Assigned Patient Location: ER Current Patient Location: ER Accession/Order Number: [id number] Exam Date: 04/28/2023 14:10 Report Date: 04/28/2023 14:32 At the request of: JACKY HOWELL Procedure: CT head/brain wo con CT head/brain wo con, 04/28/2023 2:10 PM EST INDICATION: confusion COMPARISON: Prior CT of the head dated 08/28/2020 TECHNIQUE: Axial CT images of the brain from skull base to vertex, including portions of the face and sinuses, were obtained without contrast . Multiplanar reformatted images were generated and reviewed as needed. Dose reduction techniques were achieved by using automated exposure control and/or adjustment of mA and/or kV according to patient size and/or use of iterative reconstruction technique. FINDINGS: The cerebral sulci as well as ventricular system are appropriate for age. There is no intracranial mass, mass effect, midline shift, intra or extra-axial fluid collection or hemorrhage. Periventricular and centrum semiovale hypodensities are most likely consistent with microvascular ischemic changes. The visualized portions of orbits, mastoid air cells as well as paranasal sinuses are unremarkable. There is status post bilateral lens replacement. There is no suspicious osteolytic or osteoblastic lesion. CT/CT head/brain wo con IMPRESSION: No acute intracranial process is noted. Electronically authenticated by: CAROL CLARKE Date: 04/28/2023 14:32
--- OUTSIDE RECORDS SUMMARY | 2023-04-28 14:02 | XMS_ITS | CCD ---
Author Name Unknown Address [address] [place] [address] Organization [facility] Care Team Providers Care Purchasing Expeditor Name Role Phone CALOS SMITH JR. Referring Unavailable MARSHA HATCH Attending Unavailable Levi Shine MD Primary Care Provider KARAN SULLIVAN Attending Unavailable LEVI SHINE Primary Care Unavailable LEVI SHINE Referring Unavailable KARAN SULLIVAN Admitting Unavailable KARAN SLULIVAN Attending Unavailable LEVI SHINE Primary Care Unavailable LEVI SHINE Referring Unavailable KARAN SULLIVAN Admitting Unavailable Levi Shine MD Primary Care Provider Levi Shine MD Primary Care Provider [phone] RL .DR SIMS Attending Unavailable HOY ., [...] Unavailable HOY, LEVI Primary Care Unavailable MIL GARZA~[id number], NE SEA GARZA~[phone] MIL Referring Unavailable HOY, LEVI Primary Care [...] Translations: [CEFAZOLIN] Drug Allergy 1 Anaphylaxis [facility] (5 sources) Morphine; Translations: [MORPHINE] Drug Allergy 1 Hives, Itching [facility] (8 sources) NSAIDs; Translations: [NSAIDS (NON-STEROIDAL ANTI-INFLAMMATOR Y DRUG)] Drug Allergy 3 Anaphylaxis [facility] (5 sources) Vancomycin; Translations: [VANCOMYCIN] Drug Allergy 1 Other [facility] (1 source) Aspirin Drug Allergy 0 [facility] (3 sources) ceFAZolin Drug Allergy 5 [facility] (1 source) Morphine Drug Allergy 0 [facility] (2 sources) Morphine Drug Allergy 3 [facility] (2 sources) Vancomycin Drug Allergy [facility] Medications Current Medications Medication Drug Class(es) [...] hour 100 mL/hr, intravenous, Continuous, Starting on Yvetet 04/20/22 at 1715 Start: 04-20-2022 End: 04-20-2022 [...] 20 mg/ml oral solution (2 sources) Uncompetitive Z-wbgjtl-H-aspartate Receptor Antagonist, Sigma-1 Agonist End: 12-29-2021 take [...] mg docusate sodium 50 mg / sennosides, retirement 8.6 mg oral tablet (2 sources) Start: [...] Oxygen Therapy , Adult polyethylene glycol 3350 14548 mg powder for oral solution (6 sources) [...] administer immediately). take 1 capsule by mo [facility] twice daily potassium chloride (MICRO-K) 10 [...] let 25 mg take 1 tablet by [facility] every six hours as needed promethazine (PHENERGAN) 25 mg tablet Take 1 tablet (25 mg total) by mouth every 6 (six) hours if needed for nausea or vomiting. 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) drug therapy; Translations: [OTH LONGTERM CURRENT DRUG THERAPY] Onset: 08-25-2022 Episodic Other aftercare (1 source) residential (current) use of anticoagulants; Translations: [LONGTERM CURRNT USE ANTICOAGULANTS] Onset: 08-25-2022 Episodic Other [...] 02-19-2023 C-Reactive Protein 1.0 mg/dL Normal 0.0-1.0 [facility] Comment on above: Performed By: #### 1 988-5 #### [facility] [address] [place] [address] ESR (Bld) [Velocity]on 02-19 Basophils (Bld) [#/Vol] 0.09 10*3/uL Normal 0.00-0.20 [facility] Comment on above: Performed By: #### 5 75-1 #### [facility] [address] [place] [address] Basophils/100 WBC (Bld) 1.1 % Normal 0.0-2.0 [facility] Comment on above: Performed By: #### 5 75-1 #### [facility] [place] [facility] [address] [place] [address] Eosinophils (Bld) [#/Vol] 0.17 10*3/uL Normal 0.00-0.70 [facility] Comment on above: Performed By: #### 5 75-1 #### [facility] [place] [facility] [address] [place] [address] Eosinophils/100 WBC (Bld) 2.0 % Normal 0.0-7.0 [facility] Comment on above: Performed By: #### 75-1 #### [facility] [place] [facility] [address] [place] [address] Erythrocyte distribution width (RBC) [Ratio] 13.5 % Normal 11.0-14.8 [facility] Comment on above: Performed By: #### 75-1 #### [facility] [address] [place] [address] Hematocrit (Bld) [Volume fraction] 39.9 % Normal 34.3-47.9 [facility] Comment on above: Performed By: #### 5 75-1 #### [facility] [place] [facility] [address] [place] [address] Hemoglobin (Bld) [Mass/Vol] 12.7 g/dL Normal 12.0-16.0 [facility] Comment on above: Performed By: #### 5 75-1 #### [facility] [place] [facility] [address] [place] [address] Immature granulocytes (Bld) [#/Vol] 0.02 10*3/uL Normal 0.00-0.10 [facility] Comment on above: Performed By: #### 5 75-1 #### [facility] [place] [facility] [address] [place] [address] Immature granulocytes/100 WBC (Bld) 0.2 % Normal 0.0-1.2 [facility] Comment on above: Performed By: #### 5 75-1 #### [facility] [place] [facility] [address] [place] [address] Lymphocytes (Bld) [#/Vol] 2.55 10*3/uL Normal 1.00-4.80 [facility] Comment on above: Performed By: #### 5 75-1 #### [facility] [place] [facility] [address] [place] [address] Lymphocytes/100 WBC (Bld) 30.6 % Normal 17.9-49.6 [facility] Comment on above: Performed By: #### 5 75-1 #### [facility] [address] [place] [address] MCH 31.4 pcg Normal 27.0-34.0 [facility] Comment on above: Performed By: #### 5 75-1 #### [facility] [address] [place] [address] MCHC (RBC) [Mass/Vol] 31.8 g/dL Normal 30.8-35.3 [facility] Comment on above: Performed By: #### 5 75-1 #### [facility] ([facility]) LAB [address] [place] [address] MCV (RBC) [Entitic vol] 98.5 fL High 80.0-97.0 [facility] Comment on above: Performed By: #### 5 75-1 #### [facility] [place] [facility] [address] [place] [address] Monocytes (Bld) [#/Vol] 0.57 10*3/uL Normal 0.00-0.90 [facility] Comment on above: Performed By: #### 5 75-1 #### [facility] [place] [facility] [address] [place] [address] 240[address] Monocytes/100 WBC (Bld) 6.9 % Normal 0.0-12.0 [facility] Comment on above: Performed By: #### 5 75-1 #### [facility] [place] [facility] [address] [place] [address] Neutrophils Absolute 4.92 K/mcL Normal 1.80-7.70 [facility] Comment on above: Performed By: #### 5 75-1 #### [facility] [place] [facility] [address] [place] [address] Neutrophils/100 WBC (Bld) 59.2 % Normal 38.1-75.5 [facility] Comment on above: Performed By: #### 5 75-1 #### [facility] [place] [facility] [address] [place] [address] Platelet mean volume (Bld) [Entitic vol] 11.5 fL Normal 6.2-12.1 [facility] Comment on above: Performed By: #### 5 75-1 #### [facility] [place] [facility] [address] [place] [address] Platelets (Bld) [#/Vol] 262 10*3/uL Normal 142-424 [facility] Comment on above: Performed By: #### 5 75-1 #### [facility] [place] [facility] [address] [place] [address] RBC (Bld) [#/Vol] 4.05 10*6/uL Normal 3.74-5.34 [facility] Comment on above: Performed By: #### 5 75-1 #### [facility] [place] [facility] [address] [place] [address] WBC (Bld) [#/Vol] 8.3 10*3/uL Normal 4.6-10.2 [facility] Comment on above: Performed By: #### 5 75-1 #### [facility] [place] [facility] [address] [place] [address] CBC AUTO DIFFon 08-30-2022 BASO # 0.1 103/ul Normal 0.0-0.1 [facility] Comment on above: Performed By: #### C BC #### [facility] [address] [place] [address] Dr. Jeffrey Thomas Basophils/100 WBC (Bld) 0.9 % Normal 0.2-2.0 [facility] Comment on above: Performed By: #### C BC #### [facility] [address] [place] [address] Dr. Jeffrey Thomas EO # 0.2 103/ul Normal 0.0-0.7 [facility] Comment on above: Performed By: #### C BC #### [facility] [address] [place] [address] Dr. Jeffrey Thomas Eosinophils/100 WBC (Bld) 3.9 % Normal 0.9-7.0 [facility] Comment on above: Performed By: #### C BC #### [facility] [address] [place] [address] Dr. Jeffrey Thomas Erythrocyte distribution width (RBC) [Ratio] 14.6 % Normal 11.0-15.0 [facility] Comment on above: Performed By: #### C BC #### [facility] [address] [place] [address] Dr. Jeffrey Thomas Hematocrit (Bld) [Volume fraction] 32.7 % Critically low 36.0-48.0 [facility] Comment on above: Performed By: #### C BC #### [facility] [address] [place] [address] Dr. Jeffrey Thomas Hemoglobin (Bld) [Mass/Vol] 10.3 g/dL Critically low 12.0-16.0 [facility] Comment on above: Performed By: #### C BC #### [facility] [address] [place] [address] Dr. Jeffrey Thomas IG # 0.01 10e3/ul Normal 0.00-0.03 [facility] Comment on above: Performed By: #### C BC #### [facility] [address] [place] [address] Dr. Jeffrey Thomas IG % 0.2 % Normal 0.0-0.5 [facility] Comment on above: Performed By: #### C BC #### [facility] [address] [place] [address] Dr. Jeffrey Thomas LYMPH # 1.7 103/ul Normal 1.2-3.8 [facility] Comment on above: Performed By: #### C BC #### [facility] [address] [place] [address] Dr. Jeffrey Thomas Lymphocytes/100 WBC (Bld) 30.8 % Normal 20.5-60.0 [facility] Comment on above: Performed By: #### C BC #### [facility] [address] [place] [address] Dr. Jeffrey Thomas MANUAL DIFF REQ NO Normal [facility] Comment on above: Performed By: #### C BC #### [facility] [address] [place] [address] Dr. Jeffrey Thomas MCH (RBC) [Entitic mass] 30.2 pg Normal 26.7-34.0 [facility] Comment on above: Performed By: #### C BC #### [facility] [address] [place] [address] Dr. Jeffrey Thomas MCHC (RBC) [Mass/Vol] 31.5 g/dL Normal 29.9-35.2 [facility] Comment on above: Performed By: #### C BC #### [facility] [address] [place] [address] Dr. Jeffrey Thomas MCV (RBC) [Entitic vol] 95.9 fL Normal 81.0-99.0 [facility] Comment on above: Performed By: #### C BC #### [facility] [address] [place] [address] Dr. Jeffrey Thomas MONO # 0.4 103/ul Normal 0.3-0.8 [facility] Comment on above: Performed By: #### C BC #### [facility] [address] [place] [address] Dr. Jeffrey Thomas Monocytes/100 WBC (Bld) 7.8 % Normal 1.7-12.0 [facility] Comment on above: Performed By: #### C BC #### [facility] [address] [place] [address] Dr. Jeffrey Thomas NEUT # 3.2 103/ul Normal 1.4-6.5 [facility] Comment on above: Performed By: #### C BC #### [facility] [address] [place] [address] Dr. Jeffrey Thomas Neutrophils/100 WBC (Bld) 56.4 % Normal 43.0-75.0 [facility] Comment on above: Performed By: #### C BC #### [facility] [address] [place] [address] Dr. Jeffrey Thomas Platelet mean volume (Bld) [Entitic vol] 12.9 fL Normal 9.5-13.5 [facility] Comment on above: Performed By: #### C BC #### [facility] [address] [place] [address] Dr. Jeffrey Thomas PLT 149 103/ul Critically low 150-450 [facility] Comment on above: Performed By: #### C BC #### [facility] [address] [place] [address] Dr. Jeffrey Thomas RBC 3.41 106/ul Critically low 4.20-5.40 [facility] Comment on above: Performed By: #### C BC #### [facility] [address] [place] [address] Dr. Jeffrey Thomas WBC 5.6 103/ul Normal 4.0-11.0 [facility] Comment on above: Performed By: #### C BC #### [facility] [address] [place] [address] Dr. Jeffrey Thomas HEPATITIS PANEL, [facility] HBsAg Screen Negative Normal Negative [facility] Comment on above: Performed By: #### C MP #### [facility] [address] [place] [address] Dr. Jeffrey Thomas HCV AB Non-Reactive Normal Non Reactive [facility] Comment on above: Performed By: #### C MP #### [facility] [address] [place] [address] Dr. Jeffrey Thomas Hep A Ab, IgM Negative Normal Negative [facility] Comment on above: Performed By: #### C MP #### [facility] [address] [place] [address] Dr. Jeffrey Thomas Hep B Core Ab, IgM Negative Normal Negative [facility] Comment on above: Performed By: #### C MP #### [facility] [address] [place], [place] [id number] Dr. Jeffrey Thomas [place] HEPATOBILIARY SCAN W [...] by: GARO CASILLAS Date: 2022-08-30 07:23 Normal [facility] PROF 14(COMP METB)on 023 Albumin [Mass/Vol] 2.5 g/dL Critically low 3.4-5.0 [facility] Comment on above: Performed By: #### T 4LC #### [facility] [address] [place] [address] Dr. Jeffrey Thomas Albumin/Globulin [Mass ratio] 0.9 {ratio} Normal [facility] Comment on above: Performed By: #### T 4LC #### [facility] [address] [place] [address] Dr. Jeffrey Thomas ALP [Catalytic activity/Vol] 97 U/L Normal 46-116 [facility] Comment on above: Performed By: #### T 4LC #### [facility] [address] [place] [address] Dr. Jeffrey Thomas ALT [Catalytic activity/Vol] 39 U/L Normal 14-59 [facility] Comment on above: Performed By: #### T 4LC #### [facility] [address] [place] [address] Dr. Jeffrey Thomas Anion gap [Moles/Vol] 12.9 mmol/L Normal Th [facility] Comment on above: Performed By: #### T 4LC #### [facility] [address] [place] [address] Dr. Jeffrey Thomas AST [Catalytic activity/Vol] 19 U/L Normal 15-37 [facility] Comment on above: Performed By: #### T 4LC #### [facility] [address] [place] [address] Dr. Jeffrey Thomas Bilirubin [Mass/Vol] 0.2 mg/dL Normal 0.2-1.0 [facility] Comment on above: Performed By: #### T 4LC #### [facility] [address] [place] [address] Dr. Jeffrey Thomas Calcium [Mass/Vol] 8.2 mg/dL Critically low 8.5-10.1 [facility] Comment on above: Performed By: #### T 4LC #### [facility] [address] [place] [address] Dr. Jeffrey Thomas Chloride [Moles/Vol] 111 mmol/L Critically high 98-107 [facility] Comment on above: Performed By: #### T 4LC #### [facility] [address] [place] [address] Dr. Jeffrey Thomas CO2 [Moles/Vol] 24.2 mmol/L Normal 21.0-32.0 [facility] Comment on above: Performed By: #### T 4LC #### [facility] [address] [place] [address] Dr. Jeffrey Thomas Creatinine [Mass/Vol] 1.05 mg/dL Critically high 0.55-1.02 [facility] Comment on above: Performed By: #### T 4LC #### [facility] [address] [place] [address] Dr. Jeffrey Thomas EGFR-AF GABONESE >60 Normal >=60 [facility] Comment on above: Performed By: #### T 4LC #### [facility] [address] [address] [address] Jeffrey Thomas EGFR-NON AF GABONESE 53 mL/min/1.73m2 Critically low >=60 [facility] Comment on above: Performed By: #### T 4LC #### [facility] [address] [address] [address] Jeffrey Thomas Globulin (S) [Mass/Vol] 2.7 g/dL Normal [facility] Comment on above: Performed By: #### T 4LC #### [facility] [address] [address] [address] Jeffrey Thomas Glucose [Mass/Vol] 109 mg/dL Critically high 74-106 [facility] Comment on above: Performed By: #### T 4LC #### [facility] [address] [address] [address] Jeffrey Thomas Potassium [Moles/Vol] 4.1 mmol/L Normal 3.5-5.1 [facility] Comment on above: Performed By: #### T 4LC #### [facility] [address] [place] [address] Dr. Jeffrey Thomas Protein [Mass/Vol] 5.2 g/dL Critically low 6.4-8.2 Th [facility] Comment on above: Performed By: #### T 4LC #### [facility] [address] [address] [address] Jeffrey Thomas Sodium [Moles/Vol] 144 mmol/L Normal 136-145 [facility] Comment on above: Performed By: #### T 4LC #### [facility] [address] [address] [address] Jeffrey Thomas Urea nitrogen [Mass/Vol] 11.0 mg/dL Normal 7.0-18.0 [facility] Comment on above: Performed By: #### T 4LC #### [facility] [address] [address] [address] Jeffrey Thomas Urea nitrogen/Creatinine [Mass ratio] 10.5 mg/mg Normal [facility] Comment on above: Performed By: #### T 4LC #### [facility] [address] [place] [address] Dr. Jeffrey Thomas CBC AUTO DIFFon 08-29-2022 BASO # 0.1 103/ul Normal 0.0-0.1 [facility] Comment on above: Performed By: #### T 4LC #### [facility] [address] [place] [address] Dr. Jeffrey Thomas Basophils/100 WBC (Bld) 1.2 % Normal 0.2-2.0 [facility] Comment on above: Performed By: #### T 4LC #### [facility] [address] [place] [address] Dr. Jeffrey Thomas EO # 0.2 103/ul Normal 0.0-0.7 [facility] Comment on above: Performed By: #### T 4LC #### [facility] [address] [place] [address] Dr. Jeffrey Thomas Eosinophils/100 WBC (Bld) 4.1 % Normal 0.9-7.0 [facility] Comment on above: Performed By: #### T 4LC #### [facility] [address] [place] [address] Dr. Jeffrey Thomas Erythrocyte distribution width (RBC) [Ratio] 14.6 % Normal 11.0-15.0 [facility] Comment on above: Performed By: #### T 4LC #### [facility] [address] [place] [address] Dr. Jeffrey Thomas Hematocrit (Bld) [Volume fraction] 33.6 % Critically low 36.0-48.0 [facility] Comment on above: Performed By: #### T 4LC #### [facility] [address] [place] [address] Dr. Jeffrey Thomas Hemoglobin (Bld) [Mass/Vol] 10.3 g/dL Critically low 12.0-16.0 [facility] Comment on above: Performed By: #### T 4LC #### [facility] [address] [place] [address] Dr. Jeffrey Thomas IG # 0.01 10e3/ul Normal 0.00-0.03 [facility] Comment on above: Performed By: #### T 4LC #### [facility] [address] [place] [address] Dr. Jeffrey Thomas IG % 0.2 % Normal 0.0-0.5 [facility] Comment on above: Performed By: #### T 4LC #### [facility] [address] [place] [address] Dr. Jeffrey Thomas LYMPH # 1.7 103/ul Normal 1.2-3.8 [facility] Comment on above: Performed By: #### T 4LC #### [facility] [address] [place] [address] Dr. Jeffrey Thomas Lymphocytes/100 WBC (Bld) 34.4 % Normal 20.5-60.0 [facility] Comment on above: Performed By: #### T 4LC #### [facility] [address] [place] [address] Dr. Jeffrey Thomas MANUAL DIFF REQ NO Normal [facility] Comment on above: Performed By: #### T 4LC #### [facility] [address] [place] [address] Dr. Jeffrey Thomas MCH (RBC) [Entitic mass] 29.5 pg Normal 26.7-34.0 [facility] Comment on above: Performed By: #### T 4LC #### [facility] [address] [place] [address] Dr. Jeffrey Thomas MCHC (RBC) [Mass/Vol] 30.7 g/dL Normal 29.9-35.2 [facility] Comment on above: Performed By: #### T 4LC #### [facility] [address] [place] [address] Dr. Jeffrey Thomas MCV (RBC) [Entitic vol] 96.3 fL Normal 81.0-99.0 [facility] Comment on above: Performed By: #### T 4LC #### [facility] [address] [place] [address] Dr. Jeffrey Thomas MONO # 0.4 103/ul Normal 0.3-0.8 [facility] Comment on above: Performed By: #### T 4LC #### [facility] [address] [place] [address] Dr. Jeffrey Thomas Monocytes/100 WBC (Bld) 8.2 % Normal 1.7-12.0 [facility] Comment on above: Performed By: #### T 4LC #### [facility] [address] [place] [address] Dr. Jeffrey Thomas NEUT # 2.5 103/ul Normal 1.4-6.5 [facility] Comment on above: Performed By: #### T 4LC #### [facility] [address] [place] [address] Dr. Jeffrey Thomas Neutrophils/100 WBC (Bld) 51.9 % Normal 43.0-75.0 [facility] Comment on above: Performed By: #### T 4LC #### [facility] [address] [place] [address] Dr. Jeffrey Thomas Platelet mean volume (Bld) [Entitic vol] 12.5 fL Normal 9.5-13.5 [facility] Comment on above: Performed By: #### T 4LC #### [facility] [address] [place] [address] Dr. Jeffrey Thomas PLT 157 103/ul Normal 150-450 [facility] Comment on above: Performed By: #### T 4LC #### [facility] [address] [place] [address] Dr. Jeffrey Thomas RBC 3.49 106/ul Critically low 4.20-5.40 [facility] Comment on above: Performed By: #### T 4LC #### [facility] [address] [place] [address] Dr. Jeffrey Thomas WBC 4.9 103/ul Normal 4.0-11.0 [facility] Comment on above: Performed By: #### T 4LC #### [facility] [address] [place] [address] Dr. Jeffrey Thomas PROF 14(COMP METB)on 023 Albumin [Mass/Vol] 2.6 g/dL Critically low 3.4-5.0 [facility] Comment on above: Performed By: #### C MP #### [facility] [address] [place] [address] Dr. Jeffrey Thomas Albumin/Globulin [Mass ratio] 1.0 {ratio} Normal [facility] Comment on above: Performed By: #### C MP #### [facility] [address] [address] [address] Jeffrey Thomas ALP [Catalytic activity/Vol] 94 U/L Normal 46-116 [facility] Comment on above: Performed By: #### C MP #### [facility] [address] [place] [address] Dr. Jeffrey Thomas ALT [Catalytic activity/Vol] 53 U/L Normal 14-59 [facility] Comment on above: Performed By: #### C MP #### [facility] [address] [place] [address] Dr. Jeffrey Thomas Anion gap [Moles/Vol] 11.2 mmol/L Normal Th [facility] [place] Comment on above: Performed By: #### C MP #### [facility] [address] [place] [address] Dr. Jeffrey Thomas AST [Catalytic activity/Vol] 26 U/L Normal 15-37 [facility] Comment on above: Performed By: #### C MP #### [facility] [address] [place] [address] Dr. Jeffrey Thomas Bilirubin [Mass/Vol] 0.2 mg/dL Normal 0.2-1.0 [facility] Comment on above: Performed By: #### C MP #### [facility] [address] [place] [address] Dr. Jeffrey Thomas Calcium [Mass/Vol] 8.2 mg/dL Critically low 8.5-10.1 [facility] Comment on above: Performed By: #### C MP #### [facility] [address] [place] [address] Dr. Jeffrey Thomas Chloride [Moles/Vol] 114 mmol/L Critically high 98-107 [facility] Comment on above: Performed By: #### C MP #### [facility] [address] [address] [address] Jeffrey Thomas CO2 [Moles/Vol] 23.1 mmol/L Normal 21.0-32.0 [facility] Comment on above: Performed By: #### C MP #### [facility] [address] [address] [address] Jeffrey Thomas Creatinine [Mass/Vol] 0.95 mg/dL Normal 0.55-1.02 [facility] Comment on above: Performed By: #### C MP #### [facility] [address] [address] [address] Jeffrey Thomas EGFR-AF GABONESE >60 Normal >=60 [facility] Comment on above: Performed By: #### C MP #### [facility] [address] [address] [address] Jeffrey Thomas EGFR-NON AF GABONESE 59 mL/min/1.73m2 Critically low >=60 [facility] Comment on above: Performed By: #### C MP #### [facility] [address] [address] [address] Jeffrey Thomas Globulin (S) [Mass/Vol] 2.6 g/dL Normal [facility] Comment on above: Performed By: #### C MP #### [facility] [address] [address] [address] Jeffrey Thomas Glucose [Mass/Vol] 87 mg/dL Normal 74-106 [facility] Comment on above: Performed By: #### C MP #### [facility] [address] [address] [address] Jeffrey Thomas Potassium [Moles/Vol] 4.3 mmol/L Normal 3.5-5.1 [facility] Comment on above: Performed By: #### C MP #### [facility] [address] [address] [address] Jeffrey Thomas Protein [Mass/Vol] 5.2 g/dL Critically low 6.4-8.2 [facility] [place] Comment on above: Performed By: #### C MP #### [facility] [address] [place] [address] Dr. Jeffrey Thomas Sodium [Moles/Vol] 144 mmol/L Normal 136-145 [facility] Comment on above: Performed By: #### C MP #### [facility] [address] [place] [address] Dr. Jeffrey Thomas Urea nitrogen [Mass/Vol] 10.0 mg/dL Normal 7.0-18.0 [facility] Comment on above: Performed By: #### C MP #### [facility] [address] [place] [address] Dr. Jeffrey Thomas Urea nitrogen/Creatinine [Mass ratio] 10.5 mg/mg Normal [facility] Comment on above: Performed By: #### C MP #### [facility] [address] [place] [address] Dr. Jeffrey Thomas CBC AUTO DIFFon 08-28-2022 BASO # 0.1 103/ul Normal 0.0-0.1 [facility] Comment on above: Performed By: #### T 4LC #### [facility] [address] [place] [address] Dr. Jeffrey Thomas Basophils/100 WBC (Bld) 1.2 % Normal 0.2-2.0 [facility] Comment on above: Performed By: #### T 4LC #### [facility] [address] [place] [address] Dr. Jeffrey Thomas EO # 0.3 103/ul Normal 0.0-0.7 [facility] Comment on above: Performed By: #### T 4LC #### [facility] [address] [place] [address] Dr. Jeffrey Thomas Eosinophils/100 WBC (Bld) 4.4 % Normal 0.9-7.0 [facility] Comment on above: Performed By: #### T 4LC #### [facility] [address] [place] [address] Dr. Jeffrey Thomas Erythrocyte distribution width (RBC) [Ratio] 14.8 % Normal 11.0-15.0 [facility] Comment on above: Performed By: #### T 4LC #### [facility] [address] [address] [address] Jeffrey Thomas Hematocrit (Bld) [Volume fraction] 33.5 % Critically low 36.0-48.0 [facility] Comment on above: Performed By: #### T 4LC #### [facility] [address] [place] [address] Dr. Jeffrey Thomas Hemoglobin (Bld) [Mass/Vol] 10.1 g/dL Critically low 12.0-16.0 [facility] Comment on above: Performed By: #### T 4LC #### [facility] [address] [place] [address] Dr. Jeffrey Thomas IG # 0.01 10e3/ul Normal 0.00-0.03 [facility] Comment on above: Performed By: #### T 4LC #### [facility] [address] [place] [address] Dr. Jeffrey Thomas IG % 0.2 % Normal 0.0-0.5 [facility] Comment on above: Performed By: #### T 4LC #### [facility] [address] [place] [address] Dr. Jeffrey Thomas LYMPH # 2.1 103/ul Normal 1.2-3.8 [facility] Comment on above: Performed By: #### T 4LC #### [facility] [address] [place] [address] Dr. Jeffrey Thomas Lymphocytes/100 WBC (Bld) 35.1 % Normal 20.5-60.0 [facility] Comment on above: Performed By: #### T 4LC #### [facility] [address] [place] [address] Dr. Jeffrey Thomas MANUAL DIFF REQ NO Normal [facility] Comment on above: Performed By: #### T 4LC #### [facility] [address] [place] [address] Dr. Jeffrey Thomas MCH (RBC) [Entitic mass] 29.6 pg Normal 26.7-34.0 [facility] Comment on above: Performed By: #### T 4LC #### [facility] [address] [place] [address] Dr. Jeffrey Thomas MCHC (RBC) [Mass/Vol] 30.1 g/dL Normal 29.9-35.2 [facility] Comment on above: Performed By: #### T 4LC #### [facility] [address] [place] [address] Dr. Jeffrey Thomas MCV (RBC) [Entitic vol] 98.2 fL Normal 81.0-99.0 [facility] Comment on above: Performed By: #### T 4LC #### [facility] [address] [place] [address] Dr. Jeffrey Thomas MONO # 0.5 103/ul Normal 0.3-0.8 [facility] Comment on above: Performed By: #### T 4LC #### [facility] [address] [place] [address] Dr. Jeffrey Thomas Monocytes/100 WBC (Bld) 7.7 % Normal 1.7-12.0 [facility] Comment on above: Performed By: #### T 4LC #### [facility] [address] [place] [address] Dr. Jeffrey Thomas NEUT # 3.1 103/ul Normal 1.4-6.5 [facility] Comment on above: Performed By: #### T 4LC #### [facility] [address] [place] [address] Dr. Jeffrey Thomas Neutrophils/100 WBC (Bld) 51.4 % Normal 43.0-75.0 [facility] Comment on above: Performed By: #### T 4LC #### [facility] [address] [place] [address] Dr. Jeffrey Thomas Platelet mean volume (Bld) [Entitic vol] 12.1 fL Normal 9.5-13.5 [facility] Comment on above: Performed By: #### T 4LC #### [facility] [address] [place] [address] Dr. Jeffrey Thomas PLT 180 103/ul Normal 150-450 [facility] Comment on above: Performed By: #### T 4LC #### [facility] [address] [place] [address] Dr. Jeffrey Thomas RBC 3.41 106/ul Critically low 4.20-5.40 [facility] Comment on above: Performed By: #### T 4LC #### [facility] [address] [place] [address] Dr. Jeffrey Thomas WBC 6.0 103/ul Normal 4.0-11.0 [facility] Comment on above: Performed By: #### T 4LC #### [facility] [address] [place] [address] Dr. Jeffrey Thomas PROF 14(COMP METB)on 023 Albumin [Mass/Vol] 2.8 g/dL Critically low 3.4-5.0 [facility] Comment on above: Performed By: #### C MP #### [facility] [address] [place] [address] Dr. Jeffrey Thomas Albumin/Globulin [Mass ratio] 1.1 {ratio} Normal [facility] Comment on above: Performed By: #### C MP #### [facility] [address] [place] [address] Dr. Jeffrey Thomas ALP [Catalytic activity/Vol] 96 U/L Normal 46-116 [facility] Comment on above: Performed By: #### C MP #### [facility] [address] [place] [address] Dr. Jeffrey Thomas ALT [Catalytic activity/Vol] 72 U/L Critically high 14-59 [facility] Comment on above: Performed By: #### C MP #### [facility] [address] [place] [address] Dr. Jeffrey Thomas Anion gap [Moles/Vol] 12.8 mmol/L Normal [facility] Comment on above: Performed By: #### C MP #### [facility] [address] [place] [address] Dr. Jeffrey Thomas AST [Catalytic activity/Vol] 39 U/L Critically high 15-37 [facility] Comment on above: Performed By: #### C MP #### [facility] [address] [address] [address] Jeffrey Thomas Bilirubin [Mass/Vol] 0.2 mg/dL Normal 0.2-1.0 [facility] Comment on above: Performed By: #### C MP #### [facility] [address] [address] [address] Jeffrey Thomas Calcium [Mass/Vol] 7.8 mg/dL Critically low 8.5-10.1 [facility] [place] Comment on above: Performed By: #### C MP #### [facility] [address] [address] [address] Jeffrey Thomas Chloride [Moles/Vol] 115 mmol/L Critically high 98-107 [facility] Comment on above: Performed By: #### C MP #### [facility] [address] [place] [address] Dr. Jeffrey Thomas CO2 [Moles/Vol] 20.4 mmol/L Critically low 21.0-32.0 [facility] Comment on above: Performed By: #### C MP #### [facility] [address] [address] [address] Jeffrey Thomas Creatinine [Mass/Vol] 0.98 mg/dL Normal 0.55-1.02 [facility] Comment on above: Performed By: #### C MP #### [facility] [address] [place] [address] Dr. Jeffrey Thomas EGFR-AF GABONESE >60 Normal >=60 [facility] Comment on above: Performed By: #### C MP #### [facility] [address] [place] [address] Dr. Jeffrey Thomas EGFR-NON AF GABONESE 57 mL/min/1.73m2 Critically low >=60 [facility] Comment on above: Performed By: #### C MP #### [facility] [address] [place] [address] Dr. Jeffrey Thomas Globulin (S) [Mass/Vol] 2.6 g/dL Normal [facility] Comment on above: Performed By: #### C MP #### [facility] [address] [address] [address] Jeffrey Thomas Glucose [Mass/Vol] 80 mg/dL Normal 74-106 [facility] Comment on above: Performed By: #### C MP #### [facility] [address] [address] [address] Jeffrey Thomas Potassium [Moles/Vol] 4.2 mmol/L Normal 3.5-5.1 [facility] Comment on above: Performed By: #### C MP #### [facility] [address] [address] [address] Jeffrey Thomas Protein [Mass/Vol] 5.4 g/dL Critically low 6.4-8.2 [facility] [place] Comment on above: Performed By: #### C MP #### [facility] [address] [place] [address] Dr. Jeffrey Thomas Sodium [Moles/Vol] 144 mmol/L Normal 136-145 [facility] Comment on above: Performed By: #### C MP #### [facility] [address] [place] [address] Dr. Jeffrey Thomas Urea nitrogen [Mass/Vol] 10.0 mg/dL Normal 7.0-18.0 [facility] Comment on above: Performed By: #### C MP #### [facility] [address] [place] [address] Dr. Jeffrey Thomas Urea nitrogen/Creatinine [Mass ratio] 10.2 mg/mg Normal [facility] Comment on above: Performed By: #### C MP #### [facility] [address] [place] [address] Dr. Jeffrey Thomas CBC AUTO DIFFon 08-27-2022 BASO # 0.1 103/ul Normal 0.0-0.1 [facility] Comment on above: Performed By: #### C MP #### [facility] [address] [place] [address] Dr. Jeffrey Thomas Basophils/100 WBC (Bld) 1.2 % Normal 0.2-2.0 [facility] Comment on above: Performed By: #### C MP #### [facility] [address] [place] [address] Dr. Jeffrey Thomas EO # 0.2 103/ul Normal 0.0-0.7 [facility] Comment on above: Performed By: #### C MP #### [facility] [address] [place] [address] Dr. Jeffrey Thomas Eosinophils/100 WBC (Bld) 4.0 % Normal 0.9-7.0 [facility] Comment on above: Performed By: #### C MP #### [facility] [address] [place] [address] Dr. Jeffrey Thomas Erythrocyte distribution width (RBC) [Ratio] 14.6 % Normal 11.0-15.0 [facility] Comment on above: Performed By: #### C MP #### [facility] [address] [place] [address] Dr. Jeffrey Thomas Hematocrit (Bld) [Volume fraction] 35.8 % Critically low 36.0-48.0 [facility] Comment on above: Performed By: #### C MP #### [facility] [address] [place] [address] Dr. Jeffrey Thomas Hemoglobin (Bld) [Mass/Vol] 11.4 g/dL Critically low 12.0-16.0 [facility] Comment on above: Performed By: #### C MP #### [facility] [address] [place] [address] Dr. Jeffrey Thomas IG # 0.01 10e3/ul Normal 0.00-0.03 [facility] Comment on above: Performed By: #### C MP #### [facility] [address] [place] [address] Dr. Jeffrey Thomas IG % 0.2 % Normal 0.0-0.5 [facility] Comment on above: Performed By: #### C MP #### [facility] [address] [place] [address] Dr. Jeffrey Thomas LYMPH # 2.0 103/ul Normal 1.2-3.8 [facility] Comment on above: Performed By: #### C MP #### [facility] [address] [place] [address] Dr. Jeffrey Thomas Lymphocytes/100 WBC (Bld) 35.4 % Normal 20.5-60.0 [facility] Comment on above: Performed By: #### C MP #### [facility] [address] [place] [address] Dr. Jeffrey Thomas MANUAL DIFF REQ NO Normal [facility] Comment on above: Performed By: #### C MP #### [facility] [address] [place] [address] Dr. Jeffrey Thomas MCH (RBC) [Entitic mass] 29.9 pg Normal 26.7-34.0 [facility] Comment on above: Performed By: #### C MP #### [facility] [address] [place] [address] Dr. Jeffrey Thomas MCHC (RBC) [Mass/Vol] 31.8 g/dL Normal 29.9-35.2 [facility] Comment on above: Performed By: #### C MP #### [facility] [address] [place] [address] Dr. Jeffrey Thomas MCV (RBC) [Entitic vol] 94.0 fL Normal 81.0-99.0 [facility] Comment on above: Performed By: #### C MP #### [facility] [address] [place] [address] Dr. Jeffrey Thomas MONO # 0.5 103/ul Normal 0.3-0.8 [facility] Comment on above: Performed By: #### C MP #### [facility] [address] [place] [address] Dr. Jeffrey Thomas Monocytes/100 WBC (Bld) 9.2 % Normal 1.7-12.0 [facility] Comment on above: Performed By: #### C MP #### [facility] [address] [place] [address] Dr. Jeffrey Thomas NEUT # 2.8 103/ul Normal 1.4-6.5 [facility] Comment on above: Performed By: #### C MP #### [facility] [address] [place] [address] Dr. Jeffrey Thomas Neutrophils/100 WBC (Bld) 50.0 % Normal 43.0-75.0 [facility] Comment on above: Performed By: #### C MP #### [facility] [address] [place] [address] Dr. Jeffrey Thomas Platelet mean volume (Bld) [Entitic vol] 12.0 fL Normal 9.5-13.5 [facility] Comment on above: Performed By: #### C MP #### [facility] [address] [address] [address] Jeffrey Thomas PLT 199 103/ul Normal 150-450 [facility] Comment on above: Performed By: #### C MP #### [facility] [address] [place] [address] Dr. Jeffrey Thomas RBC 3.81 106/ul Critically low 4.20-5.40 [facility] Comment on above: Performed By: #### C MP #### [facility] [address] [place] [address] Dr. Jeffrey Thomas WBC 5.7 103/ul Normal 4.0-11.0 [facility] Comment on above: Performed By: #### C MP #### [facility] [address] [place] [address] Dr. Jeffrey Thomas LACTATE/LACTIC ACIDon 2022 Lactate [Moles/Vol] 0.6 mmol/L Normal 0.4-2.[address] [facility] Comment on above: Performed By: #### C MP #### [facility] [address] [place] [address] Dr. Jeffrey Thomas Lactate [Moles/Vol] 2.8 mmol/L Critically high 0.4-2.0 [facility] Comment on above: Performed By: #### T 4LC #### [facility] [address] [place] [address] Dr. Jeffrey Thomas PROF 14(COMP METB)on 023 Albumin [Mass/Vol] 2.8 g/dL Critically low 3.4-5.0 [facility] Comment on above: Performed By: #### C MP #### [facility] [address] [place] [address] Dr. Jeffrey Thomas Albumin/Globulin [Mass ratio] 0.9 {ratio} Normal [facility] Comment on above: Performed By: #### C MP #### [facility] [address] [place] [address] Dr. Jeffrey Thomas ALP [Catalytic activity/Vol] 100 U/L Normal 46-116 [facility] Comment on above: Performed By: #### C MP #### [facility] [address] [place] [address] Dr. Jeffrey Thomas ALT [Catalytic activity/Vol] 102 U/L Critically high 14-59 [facility] Comment on above: Performed By: #### C MP #### [facility] [address] [place] [address] Dr. Jeffrey Thomas Anion gap [Moles/Vol] 17.0 mmol/L Normal [facility] Comment on above: Performed By: #### C MP #### [facility] [address] [place] [address] Dr. Jeffrey Thomas AST [Catalytic activity/Vol] 62 U/L Critically high 15-37 [facility] Comment on above: Performed By: #### C MP #### [facility] [address] [place] [address] Dr. Jeffrey Thomas Bilirubin [Mass/Vol] 0.3 mg/dL Normal 0.2-1.0 [facility] Comment on above: Performed By: #### C MP #### [facility] [address] [place] [address] Dr. Jeffrey Thomas Calcium [Mass/Vol] 8.1 mg/dL Critically low 8.5-10.1 [facility] Comment on above: Performed By: #### C MP #### [facility] [address] [place] [address] Dr. Jeffrey Thomas Chloride [Moles/Vol] 110 mmol/L Critically high 98-107 [facility] Comment on above: Performed By: #### C MP #### [facility] [address] [place] [address] Dr. Jeffrey Thomas CO2 [Moles/Vol] 18.6 mmol/L Critically low 21.0-32.0 [facility] Comment on above: Performed By: #### C MP #### [facility] [address] [address] [address] Jeffrey Thomas Creatinine [Mass/Vol] 1.43 mg/dL Critically high 0.55-1.02 [facility] Comment on above: Performed By: #### C MP #### [facility] [address] [address] [address] Jeffrey Thomas EGFR-AF GABONESE 45 mL/min/1.73m2 Critically low >=60 [facility] Comment on above: Performed By: #### C MP #### [facility] [address] [address] [address] Jeffrey Thomas EGFR-NON AF GABONESE 37 mL/min/1.73m2 Critically low >=60 [facility] Comment on above: Performed By: #### C MP #### [facility] [address] [address] [address] Jeffrey Thomas Globulin (S) [Mass/Vol] 3.0 g/dL Normal [facility] Comment on above: Performed By: #### C MP #### [facility] [address] [address] [address] Jeffrey Thomas Glucose [Mass/Vol] 141 mg/dL Critically high 74-106 [facility] Comment on above: Performed By: #### C MP #### [facility] [address] [address] [address] Jeffrey Thomas Potassium [Moles/Vol] 3.6 mmol/L Normal 3.5-5.1 [facility] Comment on above: Performed By: #### C MP #### [facility] [address] [address] [address] Jeffrey Thomas Protein [Mass/Vol] 5.8 g/dL Critically low 6.4-8.2 [facility] [place] Comment on above: Performed By: #### C MP #### [facility] [address] [address] [address] Jeffrey Thomas Sodium [Moles/Vol] 142 mmol/L Normal 136-145 [facility] Comment on above: Performed By: #### C ALE #### [facility] [address] [place] [address] Dr. Jeffrey Thomas Urea nitrogen [Mass/Vol] 22.0 mg/dL Critically high 7.0-18.0 [facility] Comment on above: Performed By: #### C ALE #### [facility] [address] [place] [address] Dr. Jeffrey Thomas Urea nitrogen/Creatinine [Mass ratio] 15.4 mg/mg Normal [facility] Comment on above: Performed By: #### C ALE #### [facility] [address] [place] [address] Dr. Jeffrey Thomas AMYLASEon 08-26-2022 Amylase [Catalytic activity/Vol] 40 U/L Normal 25-115 [facility] Comment on above: Performed By: #### C ALE #### [facility] [address] [place] [address] Dr. Jeffrey Thomas CARDIAC CHONG ADMITon 023 CK [Catalytic activity/Vol] 39 U/L Normal 26-192 [facility] Comment on above: Performed By: #### C JUANITO AGUILERA #### [facility] [address] [place] [address] Dr. Jeffrey Thomas CK.MB [Mass/Vol] 1.47 ng/mL Normal <=3.60 [facility] Comment on above: Performed By: #### C JUANITO AGUILERA #### [facility] [address] [place] [address] Dr. Jeffrey Thomas HSTROP 7.0 pg/mL Normal 4.0-51.3 [facility] Comment on above: Result Comment: CUT- OFF POINTS HAVE BEEN ESTABLISHED BASED ON THE FOURTH UNIVERSAL DEFINITIONS OF MYOCARDIAL INFARCTION. THE UPPER REFERENCE LIMIT (URL) OF TROPONIN, DEFINED THE 99TH PERCENTILE OF cTnI DISTRIBUTION IN A REFERENCE POPULATION, HAS BEEN CONFIRMED THE DECISION THRESHOLD FOR [place] DIAGNOSIS. Performed By: #### C JUANITO AGUILERA #### [facility] [address] [place] [address] Dr. Jeffrey Thomas SHONNA 107 ng/mL Critically high 9-82 [facility] Comment on above: Performed By: #### C MP, CMADM #### [facility] [address] [place] [address] Dr. Jeffrey Thomas CBC AUTO DIFFon 08-26-2022 BASO # 0.1 103/ul Normal 0.0-0.1 [facility] Comment on above: Performed By: #### C MP #### [facility] [address] [place] [address] Dr. Jeffrey Thomas Basophils/100 WBC (Bld) 0.9 % Normal 0.2-2.0 [facility] Comment on above: Performed By: #### C MP #### [facility] [address] [place] [address] Dr. Jeffrey Thomas EO # 0.1 103/ul Normal 0.0-0.7 [facility] Comment on above: Performed By: #### C MP #### [facility] [address] [place] [address] Dr. Jeffrey Thomas Eosinophils/100 WBC (Bld) 0.9 % Normal 0.9-7.0 [facility] Comment on above: Performed By: #### C MP #### [facility] [address] [place] [address] Dr. Jeffrey Thomas Erythrocyte distribution width (RBC) [Ratio] 14.1 % Normal 11.0-15.0 [facility] Comment on above: Performed By: #### C MP #### [facility] [address] [place] [address] Dr. Jeffrey Thomas Hematocrit (Bld) [Volume fraction] 48.3 % Critically high 36.0-48.0 [facility] Comment on above: Performed By: #### C MP #### [facility] [address] [place] [address] Dr. Jeffrey Thomas Hemoglobin (Bld) [Mass/Vol] 15.4 g/dL Normal 12.0-16.0 [facility] Comment on above: Performed By: #### C MP #### [facility] [address] [place] [address] Dr. Jeffrey Thomas IG # 0.04 10e3/ul Critically high 0.00-0.03 [facility] Comment on above: Performed By: #### C MP #### [facility] [facility] [address] [place] [address] Dr. Jeffrey Thomas IG % 0.3 % Normal 0.0-0.5 [facility] Comment on above: Performed By: #### C MP #### [facility] [address] [address] [address] Jeffrey Thomas LYMPH # 1.2 103/ul Normal 1.2-3.8 [facility] Comment on above: Performed By: #### C MP #### [facility] [address] [place] [address] Dr. Jeffrey Thomas Lymphocytes/100 WBC (Bld) 10.0 % Critically low 20.5-60.0 [facility] Comment on above: Performed By: #### C MP #### [facility] [address] [place] [address] Dr. Jeffrey Thomas MANUAL DIFF REQ NO Normal [facility] Comment on above: Performed By: #### C MP #### [facility] [address] [place] [address] Dr. Jeffrey Thomas MCH (RBC) [Entitic mass] 29.7 pg Normal 26.7-34.0 [facility] Comment on above: Performed By: #### C MP #### [facility] [address] [place] [address] Dr. Jeffrey Thomas MCHC (RBC) [Mass/Vol] 31.9 g/dL Normal 29.9-35.2 [facility] Comment on above: Performed By: #### C MP #### [facility] [address] [place] [address] Dr. Jeffrey Thomas MCV (RBC) [Entitic vol] 93.1 fL Normal 81.0-99.0 [facility] Comment on above: Performed By: #### C MP #### [facility] [address] [place] [address] Dr. Jeffrey Thomas MONO # 0.5 103/ul Normal 0.3-0.8 [facility] Comment on above: Performed By: #### C MP #### [facility] [address] [place] [address] Dr. Jeffrey Thomas Monocytes/100 WBC (Bld) 4.1 % Normal 1.7-12.0 [facility] Comment on above: Performed By: #### C MP #### [facility] [address] [place] [address] Dr. Jeffrey Thomas NEUT # 10.2 103/ul Critically high 1.4-6.5 [facility] Comment on above: Performed By: #### C MP #### [facility] [address] [place] [address] Dr. Jeffrey Thomas Neutrophils/100 WBC (Bld) 83.8 % Critically high 43.0-75.0 [facility] Comment on above: Performed By: #### C MP #### [facility] [address] [place] [address] Dr. Jeffrey Thomas Platelet mean volume (Bld) [Entitic vol] 12.2 fL Normal 9.5-13.5 [facility] Comment on above: Performed By: #### C MP #### [facility] [address] [place] [address] Dr. Jeffrey Thomas PLT 303 103/ul Normal 150-450 [facility] Comment on above: Performed By: #### C MP #### [facility] [address] [place] [address] Dr. Jeffrey Thomas RBC 5.19 106/ul Normal 4.20-5.40 [facility] Comment on above: Performed By: #### C MP #### [facility] [address] [place] [address] Dr. Jeffrey Thomas WBC 12.2 103/ul Critically high 4.0-11.0 [facility] Comment on above: Performed By: #### C MP #### [facility] [address] [place] [address] ABD/PELVIS WO CONon [...] by: SALVADOR POTTS Date: 2022-08-26 15:43 Normal [facility] LIPASEon 08-26-2022 Lipase [Catalytic activity/Vol] 27.0 U/L Critically low 73.0-393.0 [facility] Comment on above: Performed By: #### L ACT #### [facility] [address] [address] [address] Jeffrey Thomas PROF 14(COMP METB)on 023 Albumin [Mass/Vol] 3.7 g/dL Normal 3.4-5.0 [facility] Comment on above: Performed By: #### C JUANITO AGUILERA #### [facility] [address] [place], [place] [address] Dr. Jeffrey Thomas Albumin/Globulin [Mass ratio] 0.9 {ratio} Normal [facility] Comment on above: Performed By: #### C MP, CMADM #### [facility] [address] [address] [address] Jeffrey Thomas ALP [Catalytic activity/Vol] 138 U/L Critically high 46-116 [facility] Comment on above: Performed By: #### C MP, CMADM #### [facility] [address] [address] [address] Jeffrey Thomas ALT [Catalytic activity/Vol] 174 U/L Critically high 14-59 [facility] Comment on above: Performed By: #### C MP, CMADM #### [facility] [address] [address] [address] Jeffrey Thomas Anion gap [Moles/Vol] 20.4 mmol/L Normal [facility] Comment on above: Performed By: #### C MP, CMADM #### [facility] [address] [address] [address] Jeffrey Thomas AST [Catalytic activity/Vol] 135 U/L Critically high 15-37 [facility] Comment on above: Performed By: #### C MP, CMADM #### [facility] [address] [address] [address] Jeffrey Thomas Bilirubin [Mass/Vol] 0.4 mg/dL Normal 0.2-1.0 [facility] Comment on above: Performed By: #### C MP, CMADM #### [facility] [address] [address] [address] Jeffrey Thomas Calcium [Mass/Vol] 9.1 mg/dL Normal 8.5-10.1 [facility] Comment on above: Performed By: #### C MP, CMADM #### [facility] [address] [address] [address] Jeffrey Thomas Chloride [Moles/Vol] 103 mmol/L Normal 98-107 [facility] Comment on above: Performed By: #### C MP, CMADM #### [facility] [address] [address] [address] Jeffrey Thomas CO2 [Moles/Vol] 18.5 mmol/L Critically low 21.0-32.0 [facility] Comment on above: Performed By: #### C MP, CMADM #### [facility] [address] [address] [address] Jeffrey Thomas Creatinine [Mass/Vol] 1.85 mg/dL Critically high 0.55-1.02 [facility] Comment on above: Performed By: #### C MP, CMADM #### [facility] [address] [address] [address] Jeffrey Thomas EGFR-AF GABONESE 33 mL/min/1.73m2 Critically low >=60 [facility] Comment on above: Performed By: #### C MP, CMADM #### [facility] [address] [place] [address] Dr. Jeffrey Thomas EGFR-NON AF GABONESE 27 mL/min/1.73m2 Critically low >=60 [facility] Comment on above: Performed By: #### C MP, CMADM #### [facility] [address] [place] [address] Dr. Jeffrey Thomas Globulin (S) [Mass/Vol] 4.0 g/dL Normal [facility] Comment on above: Performed By: #### C MP, CMADM #### [facility] [address] [place] [address] Dr. Jeffrey Thomas Glucose [Mass/Vol] 110 mg/dL Critically high 74-106 [facility] Comment on above: Performed By: #### C MP, CMADM #### [facility] [address] [place] [address] Dr. Jeffrey Thomas Potassium [Moles/Vol] 3.9 mmol/L Normal 3.5-5.1 [facility] Comment on above: Performed By: #### C MP, CMADM #### [facility] [address] [place] [address] Dr. Jeffrey Thomas Protein [Mass/Vol] 7.7 g/dL Normal 6.4-8.2 [facility] Comment on above: Performed By: #### C MP, CMADM #### [facility] [address] [place] [address] Dr. Jeffrey Thomas Sodium [Moles/Vol] 138 mmol/L Normal 136-145 [facility] Comment on above: Performed By: #### C JUANITO AGUILERA #### [facility] [address] [address] [address] Jeffrey Thomas Urea nitrogen [Mass/Vol] 32.0 mg/dL Critically high 7.0-18.0 [facility] Comment on above: Performed By: #### C JUANITO AGUILERA #### [facility] [address] [place], [place] [address] Dr. Jeffrey Thomas Urea nitrogen/Creatinine [Mass ratio] 17.3 mg/mg Normal [facility] Comment on above: Performed By: #### C ALE, JUANITO #### [facility] [address] [address] [address] Jeffrey Thomas US SINGLE QUAD RT [...] LIDIA COLÓN Date: 2022-08-26 20:40 Normal [facility] CBC AUTO DIFFon 08-01-2022 BASO # 0.1 103/ul Normal 0.0-0.1 [facility] Comment on above: Performed By: #### T 4LC #### [facility] [address] [address] [address] Jeffrey Thomas Basophils/100 WBC (Bld) 1.3 % Normal 0.2-2.0 [facility] Comment on above: Performed By: #### T 4LC #### [facility] [address] [address] [address] Jeffrey Thomas EO # 0.2 103/ul Normal 0.0-0.7 [facility] Comment on above: Performed By: #### T 4LC #### [facility] [address] [address] [address] Jeffrey Thomas Eosinophils/100 WBC (Bld) 2.8 % Normal 0.9-7.0 [facility] Comment on above: Performed By: #### T 4LC #### [facility] [address] [address] [address] Jeffrey Thomas Erythrocyte distribution width (RBC) [Ratio] 15.9 % Critically high 11.0-15.0 [facility] Comment on above: Performed By: #### T 4LC #### [facility] [address] [address] [address] Jeffrey Thomas Hematocrit (Bld) [Volume fraction] 37.7 % Normal 36.0-48.0 [facility] Comment on above: Performed By: #### T 4LC #### [facility] [address] [address] [address] Jeffrey Thomas Hemoglobin (Bld) [Mass/Vol] 11.5 g/dL Critically low 12.0-16.0 [facility] Comment on above: Performed By: #### T 4LC #### [facility] [address] [address] [address] Jeffrey Thomas IG # 0.03 10e3/ul Normal 0.00-0.03 [facility] Comment on above: Performed By: #### T 4LC #### [facility] [address] [place] [address] Dr. Jeffrey Thomas IG % 0.4 % Normal 0.0-0.5 [facility] Comment on above: Performed By: #### T 4LC #### [facility] [address] [place] [address] Dr. Jeffrey Thomas LYMPH # 1.6 103/ul Normal 1.2-3.8 [facility] Comment on above: Performed By: #### T 4LC #### [facility] [address] [place] [address] Dr. Jeffrey Thomas Lymphocytes/100 WBC (Bld) 20.9 % Normal 20.5-60.0 [facility] Comment on above: Performed By: #### T 4LC #### [facility] [address] [place] [address] Dr. Jeffrey Thomas MANUAL DIFF REQ NO Normal [facility] Comment on above: Performed By: #### T 4LC #### [facility] [address] [place] [address] Dr. Jeffrey Thomas MCH (RBC) [Entitic mass] 30.0 pg Normal 26.7-34.0 [facility] Comment on above: Performed By: #### T 4LC #### [facility] [address] [place] [address] Dr. Jeffrey Thomas MCHC (RBC) [Mass/Vol] 30.5 g/dL Normal 29.9-35.2 [facility] Comment on above: Performed By: #### T 4LC #### [facility] [address] [place] [address] Dr. Jeffrey Thomas MCV (RBC) [Entitic vol] 98.4 fL Normal 81.0-99.0 [facility] Comment on above: Performed By: #### T 4LC #### [facility] [address] [place] [address] Dr. Jeffrey Thomas MONO # 0.7 103/ul Normal 0.3-0.8 [facility] Comment on above: Performed By: #### T 4LC #### [facility] [address] [place] [address] Dr. Jeffrey Thomas Monocytes/100 WBC (Bld) 8.7 % Normal 1.7-12.0 [facility] Comment on above: Performed By: #### T 4LC #### [facility] [address] [place] [address] Dr. Jeffrey Thomas NEUT # 5.2 103/ul Normal 1.4-6.5 [facility] Comment on above: Performed By: #### T 4LC #### [facility] [address] [place] [address] Dr. Jeffrey Thomas Neutrophils/100 WBC (Bld) 65.9 % Normal 43.0-75.0 [facility] Comment on above: Performed By: #### T 4LC #### [facility] [address] [place] [address] Dr. Jeffrey Thomas Platelet mean volume (Bld) [Entitic vol] 11.8 fL Normal 9.5-13.5 [facility] Comment on above: Performed By: #### T 4LC #### [facility] [address] [place] [address] Dr. Jeffrey Thomas PLT 265 103/ul Normal 150-450 [facility] Comment on above: Performed By: #### T 4LC #### [facility] [address] [place] [address] Dr. Jeffrey Thomas RBC 3.83 106/ul Critically low 4.20-5.40 [facility] Comment on above: Performed By: #### T 4LC #### [facility] [address] [place] [address] Dr. Jeffrey Thomas WBC 7.8 103/ul Normal 4.0-11.0 [facility] Comment on above: Performed By: #### T 4LC #### [facility] [address] [place] [address] Dr. Jeffrey Thomas CULTURE BLOODon 08-01-2022 Microscopic examination of blood, culture Culture Observations: NO GROWTH AT 5 DAYS. Normal [facility] Comment on above: Performed By: #### A MM #### [facility] [address] [address] [address] Jeffrey Thomas PROF 14(COMP METB)on 023 Albumin [Mass/Vol] 3.4 g/dL Normal 3.4-5.0 [facility] Comment on above: Performed By: #### C MP #### [facility] [address] [place] [address] Dr. Jeffrey Thomas Albumin/Globulin [Mass ratio] 0.8 {ratio} Normal [facility] Comment on above: Performed By: #### C MP #### [facility] [address] [place] [address] Dr. Jeffrey Thomas ALP [Catalytic activity/Vol] 98 U/L Normal 46-116 [facility] Comment on above: Performed By: #### C MP #### [facility] [address] [place] [address] Dr. Jeffrey Thomas ALT [Catalytic activity/Vol] 18 U/L Normal 14-59 [facility] Comment on above: Performed By: #### C MP #### [facility] [address] [address] [address] Jeffrey Thomas Anion gap [Moles/Vol] 13.3 mmol/L Normal [facility] Comment on above: Performed By: #### C MP #### [facility] [address] [place] [address] Dr. Jeffrey Thomas AST [Catalytic activity/Vol] 21 U/L Normal 15-37 [facility] Comment on above: Performed By: #### C MP #### [facility] [address] [place] [address] Dr. Jeffrey Thomas Bilirubin [Mass/Vol] 0.2 mg/dL Normal 0.2-1.0 [facility] Comment on above: Performed By: #### C MP #### [facility] [address] [place] [address] Dr. Jeffrey Thomas Calcium [Mass/Vol] 9.2 mg/dL Normal 8.5-10.1 [facility] Comment on above: Performed By: #### C MP #### [facility] [address] [address] [address] Jeffrey Thomas Chloride [Moles/Vol] 106 mmol/L Normal 98-107 [facility] Comment on above: Performed By: #### C MP #### [facility] [address] [address] [address] Jeffrey Thomas CO2 [Moles/Vol] 23.8 mmol/L Normal 21.0-32.0 [facility] Comment on above: Performed By: #### C MP #### [facility] [address] [address] [address] Jeffrey Thomas Creatinine [Mass/Vol] 1.07 mg/dL Critically high 0.55-1.02 [facility] Comment on above: Performed By: #### C MP #### [facility] [address] [place] [address] Dr. Jeffrey Thomas EGFR-AF GABONESE >60 Normal >=60 [facility] Comment on above: Performed By: #### C MP #### [facility] [address] [address] [address] Jeffrey Thomas EGFR-NON AF GABONESE 51 mL/min/1.73m2 Critically low >=60 [facility] Comment on above: Performed By: #### C MP #### [facility] [address] [address] [address] Jeffrey Thomas Globulin (S) [Mass/Vol] 4.1 g/dL Normal [facility] Comment on above: Performed By: #### C MP #### [facility] [address] [address] [address] Jeffrey Thomas Glucose [Mass/Vol] 77 mg/dL Normal 74-106 [facility] Comment on above: Performed By: #### C MP #### [facility] [address] [address] [address] Jeffrey Thomas Potassium [Moles/Vol] 5.1 mmol/L Normal 3.5-5.1 [facility] Comment on above: Performed By: #### C MP #### [facility] [address] [address] [address] Jeffrey Thomas Protein [Mass/Vol] 7.5 g/dL Normal 6.4-8.2 [facility] Comment on above: Performed By: #### C MP #### [facility] [address] [place] [address] Dr. Jeffrey Thomas Sodium [Moles/Vol] 138 mmol/L Normal 136-145 [facility] Comment on above: Performed By: #### C MP #### [facility] [address] [address] [address] Jeffrey Thomas Urea nitrogen [Mass/Vol] 36.0 mg/dL Critically high 7.0-18.0 [facility] Comment on above: Performed By: #### C MP #### [facility] [address] [place] [address] Dr. Jeffrey Thomas Urea nitrogen/Creatinine [Mass ratio] 33.6 mg/mg Normal [facility] Comment on above: Performed By: #### C MP #### [facility] [address] [place] [address] Dr. Jeffrey Thomas [facility] mm/hr Critically high <=30 [facility] Comment on above: Performed By: #### C MP #### [facility] [address] [place] [address] Dr. Jeffrey Thomas AMMONIAon 05-23-2022 Ammonia (P) [Moles/Vol] 18 umol/L Normal 11-32 [facility] Comment on above: Performed By: #### C MP #### [facility] [address] [place] [address] Dr. Jeffrey Thomas AMYLASEon 05-23-2022 Amylase [Catalytic activity/Vol] 30 U/L Normal 25-115 [facility] Comment on above: Performed By: #### A MM #### [facility] [address] [place] [address] Dr. Jeffrey Thomas BNPon 05-23-2022 Natriuretic peptide B (Bld) [Mass/Vol] 1066.0 pg/mL Critically high <=900.0 [facility] Comment on above: Performed By: #### A MM #### [facility] [address] [address] [address] Jeffrey Thomas CBC AUTO DIFFon 05-23-2022 BASO # 0.1 103/ul Normal 0.0-0.1 [facility] Comment on above: Performed By: #### C MP #### [facility] [address] [address] [address] Jeffrey Thomas Basophils/100 WBC (Bld) 1.1 % Normal 0.2-2.0 [facility] Comment on above: Performed By: #### C MP #### [facility] [address] [address] [address] Jeffrey Thomas EO # 0.2 103/ul Normal 0.0-0.7 [facility] Comment on above: Performed By: #### C MP #### [facility] [address] [place] [address] Dr. Jeffrey Thomas Eosinophils/100 WBC (Bld) 3.1 % Normal 0.9-7.0 [facility] Comment on above: Performed By: #### C MP #### [facility] [address] [place] [address] Dr. Jeffrey Thomas Erythrocyte distribution width (RBC) [Ratio] 17.2 % Critically high 11.0-15.0 [facility] Comment on above: Performed By: #### C MP #### [facility] [address] [place] [address] Dr. Jeffrey Thomas Hematocrit (Bld) [Volume fraction] 33.0 % Critically low 36.0-48.0 [facility] Comment on above: Performed By: #### C MP #### [facility] [address] [place] [address] Dr. Jeffrey Thomas Hemoglobin (Bld) [Mass/Vol] 10.3 g/dL Critically low 12.0-16.0 [facility] Comment on above: Performed By: #### C MP #### [facility] [address] [place] [address] Dr. Jeffrey Thomas IG # 0.02 10e3/ul Normal 0.00-0.03 [facility] Comment on above: Performed By: #### C MP #### [facility] [address] [place] [address] Dr. Jeffrey Thomas IG % 0.3 % Normal 0.0-0.5 [facility] Comment on above: Performed By: #### C MP #### [facility] [address] [place] [address] Dr. Jeffrey Thomas LYMPH # 1.8 103/ul Normal 1.2-3.8 [facility] Comment on above: Performed By: #### C MP #### [facility] [address] [place] [address] Dr. Jeffrey Thomas Lymphocytes/100 WBC (Bld) 27.8 % Normal 20.5-60.0 [facility] Comment on above: Performed By: #### C MP #### [facility] [address] [place] [address] Dr. Jeffrey Thomas MANUAL DIFF REQ NO Normal [facility] Comment on above: Performed By: #### C MP #### [facility] [address] [place] [address] Dr. Jeffrey Thomas MCH (RBC) [Entitic mass] 28.4 pg Normal 26.7-34.0 [facility] Comment on above: Performed By: #### C MP #### [facility] [address] [place] [address] Dr. Jeffrey Thomas MCHC (RBC) [Mass/Vol] 31.2 g/dL Normal 29.9-35.2 [facility] Comment on above: Performed By: #### C MP #### [facility] [address] [place] [address] Dr. Jeffrey Thomas MCV (RBC) [Entitic vol] 90.9 fL Normal 81.0-99.0 [facility] Comment on above: Performed By: #### C MP #### [facility] [address] [place] [address] Dr. Jeffrey Thomas MONO # 0.4 103/ul Normal 0.3-0.8 [facility] Comment on above: Performed By: #### C MP #### [facility] [address] [address] [address] Jeffrey Thomas Monocytes/100 WBC (Bld) 6.7 % Normal 1.7-12.0 [facility] Comment on above: Performed By: #### C MP #### [facility] [address] [address] [address] Jeffrey Thomas NEUT # 4.0 103/ul Normal 1.4-6.5 [facility] Comment on above: Performed By: #### C MP #### [facility] [address] [place] [address] Dr. Jeffrey Thomas Neutrophils/100 WBC (Bld) 61.0 % Normal 43.0-75.0 [facility] Comment on above: Performed By: #### C MP #### [facility] [address] [place] [address] Dr. Jeffrey Thomas Platelet mean volume (Bld) [Entitic vol] 10.4 fL Normal 9.5-13.5 [facility] Comment on above: Performed By: #### C MP #### [facility] [address] [place] [address] Dr. Jeffrey Thomas PLT 218 103/ul Normal 150-450 [facility] Comment on above: Performed By: #### C MP #### [facility] [address] [place] [address] Dr. Jeffrey Thomas RBC 3.63 106/ul Critically low 4.20-5.40 [facility] Comment on above: Performed By: #### C MP #### [facility] [address] [place] [address] Dr. Jeffrey Thomas WBC 6.5 103/ul Normal 4.0-11.0 [facility] Comment on above: Performed By: #### C MP #### [facility] [address] [place] [address] Dr. Jeffrey Thomas MAGNESIUMon 05-23-2022 Magnesium [Mass/Vol] 1.4 mg/dL Critically low 1.8-2.4 [facility] Comment on above: Performed By: #### A MM #### [facility] [address] [place] [address] Dr. Jeffrey Thomas PROF 14(COMP METB)on 023 Albumin [Mass/Vol] 2.8 g/dL Critically low 3.4-5.0 [facility] Comment on above: Performed By: #### A MM #### [facility] [address] [place] [address] Dr. Jeffrey Thomas Albumin/Globulin [Mass ratio] 1.0 {ratio} Normal [facility] Comment on above: Performed By: #### A MM #### [facility] [address] [place] [address] Dr. Jeffrey Thomas ALP [Catalytic activity/Vol] 113 U/L Normal 46-116 [facility] Comment on above: Performed By: #### A MM #### [facility] [address] [place] [address] Dr. Jeffrey Thomas ALT [Catalytic activity/Vol] 14 U/L Normal 14-59 [facility] Comment on above: Performed By: #### A MM #### [facility] [address] [place] [address] Dr. Jeffrey Thomas Anion gap [Moles/Vol] 15.0 mmol/L Normal [facility] Comment on above: Performed By: #### A MM #### [facility] [address] [place] [address] Dr. Jeffrey Thomas AST [Catalytic activity/Vol] 18 U/L Normal 15-37 [facility] Comment on above: Performed By: #### A MM #### [facility] [address] [place] [address] Dr. Jeffrey Thomas Bilirubin [Mass/Vol] 0.5 mg/dL Normal 0.2-1.0 [facility] Comment on above: Performed By: #### A MM #### [facility] [address] [place] [address] Dr. Jeffrey Thomas Calcium [Mass/Vol] 8.3 mg/dL Critically low 8.5-10.1 [facility] Comment on above: Performed By: #### A MM #### [facility] [address] [address] [address] Jeffrey Thomas Chloride [Moles/Vol] 106 mmol/L Normal 98-107 [facility] Comment on above: Performed By: #### A MM #### [facility] [address] [address] [address] Jeffrey Thomas CO2 [Moles/Vol] 21.2 mmol/L Normal 21.0-32.0 [facility] [facility] Comment on above: Performed By: #### A MM #### [facility] [address] [address] [address] Jeffrey Thomas Creatinine [Mass/Vol] 1.02 mg/dL Normal 0.55-1.02 [facility] Comment on above: Performed By: #### A MM #### [facility] [address] [place] [address] Dr. Jeffrey Thomas EGFR-AF GABONESE >60 Normal >=60 [facility] Comment on above: Performed By: #### A MM #### [facility] [address] [place] [address] Dr. Jeffrey Thomas EGFR-NON AF GABONESE 54 mL/min/1.73m2 Critically low >=60 [facility] Comment on above: Performed By: #### A MM #### [facility] [address] [place] [address] Dr. Jeffrey Thomas Globulin (S) [Mass/Vol] 2.8 g/dL Normal [facility] Comment on above: Performed By: #### A MM #### [facility] [address] [place] [address] Dr. Jeffrey Thomas Glucose [Mass/Vol] 85 mg/dL Normal 74-106 [facility] Comment on above: Performed By: #### A MM #### [facility] [address] [place] [address] Dr. Jeffrey Thomas Potassium [Moles/Vol] 4.2 mmol/L Normal 3.5-5.1 [facility] Comment on above: Performed By: #### A MM #### [facility] [address] [place] [address] Dr. Jeffrey Thomas Protein [Mass/Vol] 5.6 g/dL Critically low 6.4-8.2 [facility] Comment on above: Performed By: #### A MM #### [facility] [address] [place] [address] Dr. Jeffrey Thomas Sodium [Moles/Vol] 138 mmol/L Normal 136-145 [facility] Comment on above: Performed By: #### A MM #### [facility] [address] [place] [address] Dr. Jeffrey Thomas Urea nitrogen [Mass/Vol] 17.0 mg/dL Normal 7.0-18.0 [facility] Comment on above: Performed By: #### A MM #### [facility] [address] [place] [address] Dr. Jeffrey Thomas Urea nitrogen/Creatinine [Mass ratio] 16.7 mg/mg Normal [facility] Comment on above: Performed By: #### A MM #### [facility] [address] [place] [address] Dr. Jeffrey Thomas BNPon 05-22-2022 Natriuretic peptide B (Bld) [Mass/Vol] 1738.0 pg/mL Critically high <=900.0 [facility] Comment on above: Performed By: #### C MP #### [facility] [address] [place] [address] Dr. Jeffrey Thomas CBC AUTO DIFFon 05-22-2022 BASO # 0.1 103/ul Normal 0.0-0.1 [facility] Comment on above: Performed By: #### C MP #### [facility] [address] [place] [address] Dr. Jeffrey Thomas Basophils/100 WBC (Bld) 1.0 % Normal 0.2-2.0 [facility] Comment on above: Performed By: #### C MP #### [facility] [address] [place] [address] Dr. Jeffrey Thomas EO # 0.1 103/ul Normal 0.0-0.7 [facility] Comment on above: Performed By: #### C MP #### [facility] [address] [place] [address] Dr. Jeffrey Thomas Eosinophils/100 WBC (Bld) 1.0 % Normal 0.9-7.0 [facility] Comment on above: Performed By: #### C MP #### [facility] [address] [place] [address] Dr. Jeffrey Thomas Erythrocyte distribution width (RBC) [Ratio] 17.2 % Critically high 11.0-15.0 [facility] Comment on above: Performed By: #### C MP #### [facility] [address] [place] [address] Dr. Jeffrey Thomas Hematocrit (Bld) [Volume fraction] 36.8 % Normal 36.0-48.0 [facility] Comment on above: Performed By: #### C MP #### [facility] [address] [place] [address] Dr. Jeffrey Thomas Hemoglobin (Bld) [Mass/Vol] 11.8 g/dL Critically low 12.0-16.0 [facility] Comment on above: Performed By: #### C MP #### [facility] [address] [place] [address] Dr. Jeffrey Thomas IG # 0.01 10e3/ul Normal 0.00-0.03 [facility] Comment on above: Performed By: #### C MP #### [facility] [address] [place] [address] Dr. Jeffrey Thomas IG % 0.2 % Normal 0.0-0.5 [facility] Comment on above: Performed By: #### C MP #### [facility] [address] [place] [address] Dr. Jeffrey Thomas LYMPH # 1.4 103/ul Normal 1.2-3.8 [facility] Comment on above: Performed By: #### C MP #### [facility] [address] [place] [address] Dr. Jeffrey Thomas Lymphocytes/100 WBC (Bld) 28.2 % Normal 20.5-60.0 [facility] Comment on above: Performed By: #### C MP #### [facility] [address] [place] [address] Dr. Jeffrey Thomas MANUAL DIFF REQ NO Normal [facility] Comment on above: Performed By: #### C MP #### [facility] [address] [place] [address] Dr. Jeffrey Thomas MCH (RBC) [Entitic mass] 29.0 pg Normal 26.7-34.0 [facility] Comment on above: Performed By: #### C MP #### [facility] [address] [place] [address] Dr. Jeffrey Thomas MCHC (RBC) [Mass/Vol] 32.1 g/dL Normal 29.9-35.2 [facility] Comment on above: Performed By: #### C MP #### [facility] [address] [place] [address] Dr. Jeffrey Thomas MCV (RBC) [Entitic vol] 90.4 fL Normal 81.0-99.0 [facility] Comment on above: Performed By: #### C MP #### [facility] [address] [place] [address] Dr. Jeffrey Thomas MONO # 0.4 103/ul Normal 0.3-0.8 [facility] Comment on above: Performed By: #### C MP #### [facility] [address] [place] [address] Dr. Jeffrey Thomas Monocytes/100 WBC (Bld) 7.3 % Normal 1.7-12.0 [facility] Comment on above: Performed By: #### C MP #### [facility] [address] [place] [address] Dr. Jeffrey Thomas NEUT # 3.0 103/ul Normal 1.4-6.5 [facility] Comment on above: Performed By: #### C MP #### [facility] [address] [place] [address] Dr. Jeffrey Thomas Neutrophils/100 WBC (Bld) 62.3 % Normal 43.0-75.0 [facility] Comment on above: Performed By: #### C MP #### [facility] [address] [place] [address] Dr. Jeffrey Thomas Platelet mean volume (Bld) [Entitic vol] 10.4 fL Normal 9.5-13.5 [facility] Comment on above: Performed By: #### C MP #### [facility] [address] [place] [address] Dr. Jeffrey Thomas PLT 254 103/ul Normal 150-450 [facility] Comment on above: Performed By: #### C MP #### [facility] [address] [address] [address] Jeffrey Thomas RBC 4.07 106/ul Critically low 4.20-5.40 [facility] Comment on above: Performed By: #### C MP #### [facility] [address] [address] [address] Jeffrey Thomas WBC 4.8 103/ul Normal 4.0-11.0 [facility] Comment on above: Performed By: #### C MP #### [facility] [address] [place] [address] ABD/PELVIS WO CONon [...] SALOME JOLLY Date: 2022-05-22 15:45 Normal [facility] CULTURE URINEon 05-22-2022 CULTURE URINE Culture Observations : LIGHT GROWTH OF MIXED GENITAL CANDIDA. NO POTENTIAL PATHOGENS SEEN. Normal [facility] Comment on above: Performed By: #### A MM #### [facility] [address] [place] [address] Dr. Jeffrey Thomas [facility] SARS-CoV-2 (COVID-19) RNA REBECCA+probe Ql (Unsp spec) Not detected Normal NOT DETECTED [facility] Comment on above: Result Comment: When diagnostic [...] for this test is supported by the [place] of Health and Human Service's declaration that [...] used). Performed By: #### C MP #### [facility] [address] [place] [address] Dr. Jeffrey Thomas ER URINE PROFILEon 3 Bilirubin Ql (U) Negative Normal NEGATIVE [facility] Comment on above: Performed By: #### C MP #### [facility] [address] [place] [address] Dr. Jeffrey Thomas Clarity (U) CLEAR Normal CLEAR [facility] Comment on above: Performed By: #### C MP #### [facility] [address] [place] [address] Dr. Jeffrey Thomas Color (U) YELLOW Normal YELLOW [facility] Comment on above: Performed By: #### C MP #### [facility] [address] [place] [address] Dr. Jeffrey Thomas ERUAHD A micrscopic examination will be performed if indicated. Normal [facility] Comment on above: Performed By: #### C MP #### [facility] [address] [place] [address] Dr. Jeffrey Thomas Glucose Ql (U) Negative Normal NEGATIVE [facility] Comment on above: Performed By: #### C MP #### [facility] [address] [place] [address] Dr. Jeffrey Thomas Hemoglobin Ql (U) Negative Normal NEGATIVE [facility] Comment on above: Performed By: #### C MP #### [facility] [address] [address] [address] Jeffrey Thomas Ketones Ql (U) Negative Normal NEGATIVE [facility] Comment on above: Performed By: #### C MP #### [facility] [address] [place] [address] Dr. Jeffrey Thomas LEUKOCYTES Negative Normal NEGATIVE [facility] Comment on above: Performed By: #### C MP #### [facility] [address] [place] [address] Dr. Jeffrey Thomas Nitrite Ql (U) Negative Normal NEGATIVE [facility] Comment on above: Performed By: #### C MP #### [facility] [address] [place] [address] Dr. Jeffrey Thomas pH (U) 5.0 [pH] Normal 5-9 [facility] Comment on above: Performed By: #### C MP #### [facility] [address] [address] [address] Jeffrey Thomas SPEC GRAVITY 1.020 Normal 1.005-<=1.02 5 [facility] Comment on above: Performed By: #### C MP #### [facility] [address] [place] [address] Dr. Jeffrey Thomas UA PROTEIN Negative Normal NEGATIVE/ TRACE [facility] Comment on above: Performed By: #### C MP #### [facility] [address] [place] [address] Dr. Jeffrey Thomas UR MICRO IND NOT INDICATED Normal [facility] Comment on above: Performed By: #### C MP #### [facility] [address] [place] [address] Dr. Jeffrey Thomas Urobilinogen Qn (U) 0.2 {Bere'U}/dL Normal 0.2 - 1. 0 [facility] Comment on above: Performed By: #### C MP #### [facility] [address] [place] [address] Dr. Jeffrey Thomas INFLUENZA A AND B AGon 05-22 INFLUANEGH SEE BELOW Normal [facility] Comment on above: Result Comment: Nega tive for Flu A protein angiten. Infection due to Flu A cannot be ruled out. Flu A angiten in the sample may be below the detection limit of the test. Performed By: #### C MP #### [facility] [address] [place] [address] Dr. Jeffrey Thomas INFLUBNEG SEE BELOW Normal [facility] Comment on above: Result Comment: Nega tive for Flu B protein antigen. Infection due to Flu B cannot be ruled out. Flu B antigen in the sample may be below the detection limit of the test. Performed By: #### C MP #### [facility] [address] [place] [address] Dr. Jeffrey Thomas INFLUENZA A AG Negative Normal NEGATIVE SEE COMMENT [facility] Comment on above: Performed By: #### C MP #### [facility] [address] [place] [address] Dr. Jeffrey Thomas INFLUENZA B AG Negative Normal NEGATIVE SEE COMMENT [facility] Comment on above: Performed By: #### C MP #### [facility] [address] [place] [address] Dr. Jeffrey Thomas LACTATE/LACTIC ACIDon 2022 Lactate [Moles/Vol] 1.4 mmol/L Normal 0.4-1.[address] [facility] Comment on above: Performed By: #### L ACT #### [facility] [address] [place] [address] Dr. Jeffrey Thomas Lactate [Moles/Vol] 1.1 mmol/L Normal 0.4-1.9 [facility] Comment on above: Performed By: #### T 4LC #### [facility] [address] [place] [address] Dr. Jeffrey Thomas LIPASEon 05-22-2022 Lipase [Catalytic activity/Vol] 21.0 U/L Critically low 73.0-393.0 [facility] Comment on above: Performed By: #### C MP #### [facility] [address] [place] [address] Dr. Jeffrey Thomas PROF 14(COMP METB)on 023 Albumin [Mass/Vol] 3.2 g/dL Critically low 3.4-5.0 [facility] Comment on above: Performed By: #### C MP #### [facility] [address] [place] [address] Dr. Jeffrey Thomas Albumin/Globulin [Mass ratio] 1.0 {ratio} Normal [facility] Comment on above: Performed By: #### C MP #### [facility] [address] [address] [address] Jeffrey Thomas ALP [Catalytic activity/Vol] 133 U/L Critically high 46-116 [facility] Comment on above: Performed By: #### C MP #### [facility] [address] [place] [address] Dr. Jeffrey Thomas ALT [Catalytic activity/Vol] 14 U/L Normal 14-59 [facility] Comment on above: Performed By: #### C MP #### [facility] [address] [place] [address] Dr. Jeffrey Thomas Anion gap [Moles/Vol] 17.3 mmol/L Normal [facility] Comment on above: Performed By: #### C MP #### [facility] [address] [place] [address] Dr. Jeffrey Thomas AST [Catalytic activity/Vol] 18 U/L Normal 15-37 [facility] Comment on above: Performed By: #### C MP #### [facility] [address] [place] [address] Dr. Jeffrey Thomas Bilirubin [Mass/Vol] 0.5 mg/dL Normal 0.2-1.0 [facility] Comment on above: Performed By: #### C MP #### [facility] [address] [place] [address] Dr. Jeffrey Thomas Calcium [Mass/Vol] 9.0 mg/dL Normal 8.5-10.1 [facility] Comment on above: Performed By: #### C MP #### [facility] [address] [place] [address] Dr. Jeffrey Thomas Chloride [Moles/Vol] 107 mmol/L Normal 98-107 [facility] Comment on above: Performed By: #### C MP #### [facility] [address] [address] [address] Jeffrey Thomas CO2 [Moles/Vol] 20.0 mmol/L Critically low 21.0-32.0 [facility] Comment on above: Performed By: #### C MP #### [facility] [address] [address] [address] Jeffrey Thomas Creatinine [Mass/Vol] 1.05 mg/dL Critically high 0.55-1.02 [facility] Comment on above: Performed By: #### C MP #### [facility] [address] [address] [address] Jeffrey Thomas EGFR-AF GABONESE >60 Normal >=60 [facility] Comment on above: Performed By: #### C MP #### [facility] [address] [address] [address] Jeffrey Thomas EGFR-NON AF GABONESE 53 mL/min/1.73m2 Critically low >=60 [facility] Comment on above: Performed By: #### C MP #### [facility] [address] [address] [address] Jeffrey Thomas Globulin (S) [Mass/Vol] 3.1 g/dL Normal [facility] Comment on above: Performed By: #### C MP #### [facility] [address] [address] [address] Jeffrey Thomas Glucose [Mass/Vol] 117 mg/dL Critically high 74-106 [facility] Comment on above: Performed By: #### C MP #### [facility] [address] [address] [address] Jeffrey Thomas Potassium [Moles/Vol] 4.3 mmol/L Normal 3.5-5.1 [facility] Comment on above: Performed By: #### C MP #### [facility] [address] [address] [address] Jeffrey Thomas Protein [Mass/Vol] 6.3 g/dL Critically low 6.4-8.2 Th [facility] Comment on above: Performed By: #### C MP #### [facility] [address] [address] [address] Jeffrey Thomas Sodium [Moles/Vol] 140 mmol/L Normal 136-145 [facility] Comment on above: Performed By: #### C MP #### [facility] [address] [address] [address] Jeffrey Thomas Urea nitrogen [Mass/Vol] 20.0 mg/dL Critically high 7.0-18.0 [facility] Comment on above: Performed By: #### C MP #### [facility] [address] [place] [address] Dr. Jeffrey Thomas Urea nitrogen/Creatinine [Mass ratio] 19.0 mg/mg Normal [facility] Comment on above: Performed By: #### C MP #### [facility] [address] [place] [address] Dr. Jeffrey Thomas PROTIMEon 05-22-2022 INR Coag (PPP) [Relative time] 0.99 {INR} Normal [facility] Comment on above: Performed By: #### C MP #### [facility] [address] [address] [address] Jeffrey Thomas INR GUIDELINES SEE BELOW Normal [facility] Comment on above: Result Comment: MERARI RED INR: 2.0 - 3.0 CONDITIONS NOT LISTED BELOW 2.5 - 3.5 FOR PROSTHETIC HEART VALVE REPLACEMENT 2.5 - 3.5 RECURRENT THROMBOSIS Performed By: #### C MP #### [facility] [address] [place] [address] Dr. Jeffrey Thomas PT Coag (PPP) [Time] 10.5 s Normal 9.0-11.6 [facility] Comment on above: Performed By: #### C MP #### [facility] [address] [place] [address] Dr. Jeffrey Thomas PTTon 05-22-2022 aPTT Coag (Bld) [Time] 25.9 s Normal 22.3-36.2 [facility] Comment on above: Performed By: #### C MP #### [facility] [address] [place], [place] [address] Dr. Jeffrey Thomas TROPONIN, HIGH SENSITIVITYon 05-22-2022 HSTROP 6.1 pg/mL Normal 4.0-51.3 [facility] Comment on above: Result Comment: CUT- OFF POINTS HAVE BEEN ESTABLISHED BASED ON THE FOURTH UNIVERSAL DEFINITIONS OF MYOCARDIAL INFARCTION. THE UPPER REFERENCE LIMIT (URL) OF TROPONIN, DEFINED THE 99TH PERCENTILE OF cTnI DISTRIBUTION IN A REFERENCE POPULATION, HAS BEEN CONFIRMED THE DECISION THRESHOLD FOR [place] DIAGNOSIS. Performed By: #### C MP #### [facility] [address] [place], [place] [address] Dr. Jeffrey Thomas US SINGLE QUAD RT [...] by: ABDIAS WEN Date: 2022-05-22 17:32 Normal [facility] XR CHEST 1 Von 05-22-2022 XR [...] by: MELLY SEO Date: 2022-05-22 15:32 Normal [facility] PT Coag (PPP) [Time]on 05-04 INR Coag (PPP) [Relative time] 1.7 {INR} Normal <=5.0 [facility] Comment on above: Result Comment: The recommended therapeutic INR range for most cardiac indications is 2.0-3.0 For high intensity therapy (i.e. mechanical heart valves), the recommended range is 2.5-3.5 Performed By: #### 5 902-2 #### [facility] ([facility]) [facility] [address] [place] [address] Prothrombin timeon 3 PT Coag (PPP) [Time] 18.8 s High 11.9-14.7 [facility] Comment on above: Performed By: #### 5 902-2 #### [facility] [address] [place] [address] Basic metabolic 2000 panelon 05-03-2022 Anion gap [Moles/Vol] 8 mmol/L Normal 6-18 [facility] Comment on above: Performed By: #### 2 4321-2 #### [facility] [address] [place] [address] Calcium [Mass/Vol] 8.6 mg/dL Low 8.9-10.3 [facility] Comment on above: Performed By: #### 2 4321-2 #### [facility] [address] [place] [address] Chloride [Moles/Vol] 109 mmol/L High 98-107 [facility] Comment on above: Performed By: #### 2 4321-2 #### [facility] [place] [facility] [address] [place] [address] CO2 [Moles/Vol] 25 mmol/L Normal 22-32 [facility] Comment on above: Performed By: #### 2 4321-2 #### [facility] [place] [facility] [address] [place] [address] Creatinine [Mass/Vol] 1.07 mg/dL Normal 0.60-1.30 [facility] Comment on above: Performed By: #### 2 4321-2 #### [facility] [place] [facility] [address] [place] [address] GFR/1.73 sq M.predicted among non-blacks MDRD (S/P/Bld) [Vol rate/Area] 58 mL/min/{1.73_m2} Low >=60 [facility] Comment on above: Result Comment: Effe ctive January 08, 2022, calculation based on the?Chronic Kidney Disease Epidemiology Collaboration (CKD-EPI) equation refit?without adjustment for race. Performed By: #### 2 4321-2 #### [facility] [place] [facility] [address] [place] [address] Glucose [Mass/Vol] 78 mg/dL Normal 70-99 [facility] Comment on above: Performed By: #### 2 4321-2 #### [facility] [place] [facility] [address] [place] [address] Potassium [Moles/Vol] 5.1 mmol/L Normal 3.6-5.1 [facility] Comment on above: Performed By: #### 2 4321-2 #### [facility] [place] [facility] [address] [place] [address] Sodium [Moles/Vol] 142 mmol/L Normal 136-145 [facility] Comment on above: Performed By: #### 2 4321-2 #### [facility] [place] [facility] [address] [place] [address] Urea nitrogen [Mass/Vol] 35 mg/dL High 8-20 [facility] Comment on above: Performed By: #### 2 4321-2 #### [facility] [place] [facility] [address] [place] [address] Urea nitrogen/Creatinine [Mass ratio] 32.7 mg/mg High 12.0-20.0 [facility] Comment on above: Performed By: #### 2 4321-2 #### [facility] [place] [facility] [address] [place] [address] Hemogram and platelets WO di fferential panel (Bld)on 05-03-2022 Erythrocyte distribution width (RBC) [Ratio] 16.4 % High 11.0-14.8 [facility] Comment on above: Performed By: #### 2 4321-2 #### [facility] [place] [facility] [address] [place] [address] Hematocrit (Bld) [Volume fraction] 33.4 % Low 34.3-47.9 [facility] Comment on above: Performed By: #### 2 4321-2 #### [facility] [place] [facility] [address] [place] [address] Hemoglobin (Bld) [Mass/Vol] 10.0 g/dL Low 12.0-16.0 [facility] Comment on above: Performed By: #### 2 1-2 #### [facility] [place] [facility] [address] [place] [address] MCH 27.2 pcg Normal 27.0-34.0 [facility] Comment on above: Performed By: #### 2 4321-2 #### [facility] [place] [facility] [address] [place] [address] MCHC (RBC) [Mass/Vol] 29.9 g/dL Low 30.8-35.3 [facility] Comment on above: Performed By: #### 2 4321-2 #### [facility] [place] [facility] [address] [place] [address] MCV (RBC) [Entitic vol] 91.0 fL Normal 80.0-97.0 [facility] Comment on above: Performed By: #### 2 4321-2 #### [facility] [place] [facility] [address] [place] [address] Platelet mean volume (Bld) [Entitic vol] 11.6 fL Normal 6.2-12.1 [facility] Comment on above: Performed By: #### 2 4321-2 #### [facility] [place] [facility] [address] [place] [address] Platelets (Bld) [#/Vol] 283 10*3/uL Normal 142-424 [facility] Comment on above: Performed By: #### 2 4321-2 #### [facility] [place] [facility] [address] [place], [place] [address] 71298 RBC (Bld) [#/Vol] 3.67 10*6/uL Low 3.74-5.34 [facility] Comment on above: Performed By: #### 2 4321-2 #### [facility] [place] [facility] [address] [place] [address] 85576 WBC (Bld) [#/Vol] 5.5 10*3/uL Normal 4.6-10.2 [facility] Comment on above: Performed By: #### 2 4321-2 #### [facility] [place] [facility] [address] [place] [address] 85114 PT Coag (PPP) [Time]on 05-03 INR Coag (PPP) [Relative time] 1.6 {INR} Normal <=5.0 [facility] Comment on above: Result Comment: The recommended therapeutic INR range for most cardiac indications is 2.0-3.0 For high intensity therapy (i.e. mechanical heart valves), the recommended range is 2.5-3.5 Performed By: #### 5 902-2 #### [facility] [place] [facility] [address] [place] [address] 85804 Prothrombin timeon PT Coag (PPP) [Time] 17.7 s High 11.9-14.7 [facility] Comment on above: Performed By: #### 5 902-2 #### [facility] ([facility]) LAB [address] [place] [address] Nuclear IgG IA Ql (S)on 04-04 Bacteria identified Cx Nom (U) 1 ORGANISM 202 Abnormal >099418 CFU/mL Escherichia coli The organism value for [...] ug/ml Susceptible Invalid Interpretation Code [facility] Comment on above: Performed By: #### 2 4321-2 #### [facility] ([facility]) LAB [address] [place] [address] Bacteria, Urine Many Abnormal None [facility] Comment on above: Performed By: #### 2 4321-2 #### [facility] [address] [place] [address] Bilirubin, Urine Negative Normal Negative [facility] Comment on above: Performed By: #### 2 4321-2 #### [facility] [address] [place] [address] Blood, Urine 3+ Abnormal Negative [facility] Comment on above: Performed By: #### 2 4321-2 #### [facility] [place] [facility] [address] [place] [address] Clarity (U) Slightly Cloudy Abnormal Clear [facility] Comment on above: Performed By: #### 2 4321-2 #### [facility] [place] [facility] [address] [place] [address] Color (U) Renata Abnormal Yellow [facility] Comment on above: Performed By: #### 2 4321-2 #### [facility] [place] [facility] [address] [place] [address] Glucose Ql (U) Normal Normal Normal [facility] Comment on above: Performed By: #### 2 4321-2 #### [facility] [place] [facility] [address] [place] [address] Ketones Ql (U) Negative Normal Negative [facility] Comment on above: Performed By: #### 2 4321-2 #### [facility] [place] [facility] [address] [place] [address] Leukocytes, Urine 250 WBCs/mcL Abnormal Negative [facility] Comment on above: Performed By: #### 2 1-2 #### [facility] [place] [facility] [address] [place] [address] Mucus, UA Rare Abnormal None [facility] Comment on above: Performed By: #### 2 4321-2 #### [facility] [place] [facility] [address] [place] [address] Nitrite, Urine Negative Normal Negative [facility] Comment on above: Performed By: #### 2 4321-2 #### [facility] [place] [facility] [address] [place] [address] pH (U) 6.0 [pH] Normal 5.0-8.0 [facility] Comment on above: Performed By: #### 2 4321-2 #### [facility] [place] [facility] [address] [place] [address] Protein (U) [Mass/Vol] 30 mg/dL Abnormal Negative [facility] Comment on above: Performed By: #### 2 4321-2 #### [facility] ([facility]) LAB [address] [place] [address] 26314 RBC LM.HPF (Urine sed) [#/Area] 362 /[HPF] High 0-5 [facility] Comment on above: Performed By: #### 2 4321-2 #### [facility] [address] [place] [address] Specific [place] Urine 1.012 Normal 1.002-1.030 [facility] Comment on above: Performed By: #### 2 4321-2 #### [facility] ([facility]) LAB [address] [place] [address] 33373 Squamous Epithelial, Urine Rare Abnormal None [facility] Comment on above: Performed By: #### 2 4321-2 #### [facility] ([facility]) LAB [address] [place] [address] 34039 Urobilinogen, Urine Normal Normal Normal [facility] Comment on above: Performed By: #### 2 4321-2 #### [facility] ([facility]) LAB [address] [place] [address] 18722 WBC LM.HPF (Urine sed) [#/Area] 47 /[HPF] High 0-5 [facility] Comment on above: Performed By: #### 2 4321-2 #### [facility] ([facility]) LAB [address] [place] [address] 75676 PT Coag (PPP) [Time]on 05-02 INR Coag (PPP) [Relative time] 1.4 {INR} Normal <=5.0 [facility] Comment on above: Result Comment: The recommended therapeutic INR range for most cardiac indications is 2.0-3.0 For high intensity therapy (i.e. mechanical heart valves), the recommended range is 2.5-3.5 Performed By: #### 5 902-2 #### [facility] ([facility]) LAB [address] [place] [address] 95326 Prothrombin timeon 3 PT Coag (PPP) [Time] 15.9 s High 11.9-14.7 [facility] Comment on above: Performed By: #### 5 902-2 #### [facility] [place] [facility] [address] [place] [address] Basic metabolic 2000 panelon 05-01-2022 Anion gap [Moles/Vol] 8 mmol/L Normal 6-18 [facility] Comment on above: Performed By: #### 5 902-2 #### [facility] [place] [facility] [address] [place] [address] 89497 Calcium [Mass/Vol] 8.6 mg/dL Low 8.9-10.3 [facility] Comment on above: Performed By: #### 5 902-2 #### [facility] [place] [facility] [address] [place] [address] 79755 Chloride [Moles/Vol] 108 mmol/L High 98-107 [facility] Comment on above: Performed By: #### 5 902-2 #### [facility] [place] [facility] [address] [place] [address] 01874 CO2 [Moles/Vol] 25 mmol/L Normal 22-32 [facility] Comment on above: Performed By: #### 5 902-2 #### [facility] [place] [facility] [address] [place] [address] Creatinine [Mass/Vol] 0.97 mg/dL Normal 0.60-1.30 [facility] Comment on above: Performed By: #### 5 902-2 #### [facility] [place] [facility] [address] [place] [address] GFR/1.73 sq M.predicted among non-blacks MDRD (S/P/Bld) [Vol rate/Area] 65 mL/min/{1.73_m2} Normal >=60 [facility] Comment on above: Result Comment: Effe ctive January 08, 2022, calculation based on the?Chronic Kidney Disease Epidemiology Collaboration (CKD-EPI) equation refit?without adjustment for race. Performed By: #### 5 902-2 #### [facility] [place] [facility] [address] [place] [address] 65438 Glucose [Mass/Vol] 82 mg/dL Normal 70-99 [facility] Comment on above: Performed By: #### 5 902-2 #### [facility] [place] [facility] [address] [place] [address] 37089 Potassium [Moles/Vol] 4.5 mmol/L Normal 3.6-5.1 [facility] Comment on above: Performed By: #### 5 902-2 #### [facility] [place] [facility] [address] [place] [address] 33145 Sodium [Moles/Vol] 141 mmol/L Normal 136-145 [facility] Comment on above: Performed By: #### 5 902-2 #### [facility] [place] [facility] [address] [place] [address] 68937 Urea nitrogen [Mass/Vol] 34 mg/dL High 8-20 [facility] Comment on above: Performed By: #### 5 902-2 #### [facility] [place] [facility] [address] [place] [address] 34718 Urea nitrogen/Creatinine [Mass ratio] 35.1 mg/mg High 12.0-20.0 [facility] Comment on above: Performed By: #### 5 902-2 #### [facility] [place] [facility] [address] [place] [address] 41157 Hemogram and platelets WO di fferential panel (Bld)on 05-01-2022 Erythrocyte distribution width (RBC) [Ratio] 16.5 % High 11.0-14.8 [facility] Comment on above: Performed By: #### 2 4321-2 #### [facility] [place] [facility] [address] [place] [address] 07545 Hematocrit (Bld) [Volume fraction] 33.7 % Low 34.3-47.9 [facility] Comment on above: Performed By: #### 2 4321-2 #### [facility] [place] [facility] [address] [place] [address] 95528 Hemoglobin (Bld) [Mass/Vol] 10.3 g/dL Low 12.0-16.0 [facility] Comment on above: Performed By: #### 2 4321-2 #### [facility] [place] [facility] [address] [place] [address] 57677 MCH 28.1 pcg Normal 27.0-34.0 [facility] Comment on above: Performed By: #### 2 4320-2 #### [facility] [place] [facility] [address] [place] [address] 68589 MCHC (RBC) [Mass/Vol] 30.6 g/dL Low 30.8-35.3 [facility] Comment on above: Performed By: #### 2 4320-2 #### [facility] [place] [facility] [address] [place] [address] 52624 MCV (RBC) [Entitic vol] 92.1 fL Normal 80.0-97.0 [facility] Comment on above: Performed By: #### 2 1-2 #### [facility] [place] [facility] [address] [place] [address] 03932 Platelet mean volume (Bld) [Entitic vol] 11.6 fL Normal 6.2-12.1 [facility] Comment on above: Performed By: #### 2 1-2 #### [facility] [place] [facility] [address] [place] [address] 41684 Platelets (Bld) [#/Vol] 275 10*3/uL Normal 142-424 [facility] Comment on above: Performed By: #### 2 1-2 #### [facility] [place] [facility] [address] [place] [address] 81800 RBC (Bld) [#/Vol] 3.66 10*6/uL Low 3.74-5.34 [facility] Comment on above: Performed By: #### 2 1-2 #### [facility] ([facility]) LAB [address] [place] [address] WBC (Bld) [#/Vol] 5.9 10*3/uL Normal 4.6-10.2 [facility] Comment on above: Performed By: #### 2 4321-2 #### [facility] ([facility]) LAB [address] [place] [address] 61003 PT Coag (PPP) [Time]on 05-01 INR Coag (PPP) [Relative time] 1.3 {INR} Normal <=5.0 [facility] Comment on above: Result Comment: The recommended therapeutic INR range for most cardiac indications is 2.0-3.0 For high intensity therapy (i.e. mechanical heart valves), the recommended range is 2.5-3.5 Performed By: #### 2 4321-2 #### [facility] ([facility]) LAB [address] [place] [address] 73445 Prothrombin timeon 3 PT Coag (PPP) [Time] 15.6 s High 11.9-14.7 [facility] Comment on above: Performed By: #### 2 4321-2 #### [facility] ([facility]) LAB [address] [place] [address] 37743 PT Coag (PPP) [Time]on 04-30 INR Coag (PPP) [Relative time] 1.4 {INR} Normal <=5.0 [facility] Comment on above: Result Comment: The recommended therapeutic INR range for most cardiac indications is 2.0-3.0 For high intensity therapy (i.e. mechanical heart valves), the recommended range is 2.5-3.5 Performed By: #### 5 902-2 #### [facility] ([facility]) LAB [address] [place] [address] Prothrombin timeon 3 PT Coag (PPP) [Time] 16.0 s High 11.9-14.7 [facility] Comment on above: Performed By: #### 5 902-2 #### [facility] [place] [facility] [address] [place] [address] Basic metabolic 2000 panelon 04-29-2022 Anion gap [Moles/Vol] 6 mmol/L Normal 6-18 [facility] Comment on above: Performed By: #### 5 902-2 #### [facility] [place] [facility] [address] [place] [address] 53589 Calcium [Mass/Vol] 8.7 mg/dL Low 8.9-10.3 [facility] Comment on above: Performed By: #### 5 902-2 #### [facility] [place] [facility] [address] [place] [address] 16005 Chloride [Moles/Vol] 103 mmol/L Normal 98-107 [facility] Comment on above: Performed By: #### 5 902-2 #### [facility] [place] [facility] [address] [place] [address] 99613 CO2 [Moles/Vol] 28 mmol/L Normal 22-32 [facility] Comment on above: Performed By: #### 5 902-2 #### [facility] [place] [facility] [address] [place] [address] 49732 Creatinine [Mass/Vol] 1.14 mg/dL Normal 0.60-1.30 [facility] Comment on above: Performed By: #### 5 902-2 #### [facility] [place] [facility] [address] [place] [address] 44848 GFR/1.73 sq M.predicted among non-blacks MDRD (S/P/Bld) [Vol rate/Area] 54 mL/min/{1.73_m2} Low >=60 [facility] Comment on above: Result Comment: Effe ctive January 08, 2022, calculation based on the?Chronic Kidney Disease Epidemiology Collaboration (CKD-EPI) equation refit?without adjustment for race. Performed By: #### 5 902-2 #### [facility] [place] [facility] [address] [place] [address] 08285 Glucose [Mass/Vol] 90 mg/dL Normal 70-99 [facility] Comment on above: Performed By: #### 5 902-2 #### [facility] [place] [facility] [address] [place] [address] 17787 Potassium [Moles/Vol] 4.8 mmol/L Normal 3.6-5.1 [facility] Comment on above: Performed By: #### 5 902-2 #### [facility] [place] [facility] [address] [place] [address] 93087 Sodium [Moles/Vol] 137 mmol/L Normal 136-145 [facility] Comment on above: Performed By: #### 5 902-2 #### [facility] [address] [place] [address] 28227 Urea nitrogen [Mass/Vol] 35 mg/dL High 8-20 [facility] Comment on above: Performed By: #### 5 902-2 #### [facility] [place] [facility] [address] [place] [address] 83314 Urea nitrogen/Creatinine [Mass ratio] 30.7 mg/mg High 12.0-20.0 [facility] Comment on above: Performed By: #### 5 902-2 #### [facility] [address] [place] [address] 00075 PT Coag (PPP) [Time]on 04-29 INR Coag (PPP) [Relative time] 1.4 {INR} Normal <=5.0 [facility] Comment on above: Result Comment: The recommended therapeutic INR range for most cardiac indications is 2.0-3.0 For high intensity therapy (i.e. mechanical heart valves), the recommended range is 2.5-3.5 Performed By: #### 5 902-2 #### [facility] [place] [facility] [address] [place] [address] 42854 Prothrombin timeon PT Coag (PPP) [Time] 16.5 s High 11.9-14.7 [facility] Comment on above: Performed By: #### 5 902-2 #### [facility] [place] [facility] [address] [place] [address] PT Coag (PPP) [Time]on 04-28 INR Coag (PPP) [Relative time] 1.3 {INR} Normal <=5.0 [facility] Comment on above: Result Comment: The recommended therapeutic INR range for most cardiac indications is 2.0-3.0 For high intensity therapy (i.e. mechanical heart valves), the recommended range is 2.5-3.5 Performed By: #### 5 902-2 #### [facility] [place] [facility] [address] [place] [address] 18666 Prothrombin timeon PT Coag (PPP) [Time] 15.6 s High 11.9-14.7 [facility] Comment on above: Performed By: #### 5 902-2 #### [facility] [place] [facility] [address] [place] [address] 58355 Basic metabolic 2000 panelon 04-27-2022 Anion gap [Moles/Vol] 10 mmol/L Normal 6-18 [facility] Comment on above: Performed By: #### 2 4321-2 #### [facility] [address] [place] [address] 45375 Calcium [Mass/Vol] 8.4 mg/dL Low 8.9-10.3 [facility] Comment on above: Performed By: #### 2 4321-2 #### [facility] [place] [facility] [address] [place] [address] 45312 Chloride [Moles/Vol] 105 mmol/L Normal 98-107 [facility] Comment on above: Performed By: #### 2 4321-2 #### [facility] [address] [place] [address] 52628 CO2 [Moles/Vol] 22 mmol/L Normal 22-32 [facility] Comment on above: Performed By: #### 2 4321-2 #### [facility] [address] [place] [address] Creatinine [Mass/Vol] 1.12 mg/dL Normal 0.60-1.30 [facility] Comment on above: Performed By: #### 2 4321-2 #### [facility] [place] [facility] [address] [place] [address] GFR/1.73 sq M.predicted among non-blacks MDRD (S/P/Bld) [Vol rate/Area] 55 mL/min/{1.73_m2} Low >=60 [facility] Comment on above: Result Comment: Effe ctive January 08, 2022, calculation based on the?Chronic Kidney Disease Epidemiology Collaboration (CKD-EPI) equation refit?without adjustment for race. Performed By: #### 2 4321-2 #### [facility] [place] [facility] [address] [place] [address] Glucose [Mass/Vol] 82 mg/dL Normal 70-99 [facility] Comment on above: Performed By: #### 2 4321-2 #### [facility] [place] [facility] [address] [place] [address] Potassium [Moles/Vol] 5.6 mmol/L High 3.6-5.1 [facility] Comment on above: Performed By: #### 2 4321-2 #### [facility] [place] [facility] [address] [place] [address] Sodium [Moles/Vol] 137 mmol/L Normal 136-145 [facility] Comment on above: Performed By: #### 2 4321-2 #### [facility] [place] [facility] [address] [place] [address] Urea nitrogen [Mass/Vol] 35 mg/dL High 8-20 [facility] Comment on above: Performed By: #### 2 4321-2 #### [facility] [place] [facility] [address] [place] [address] Urea nitrogen/Creatinine [Mass ratio] 31.3 mg/mg High 12.0-20.0 [facility] Comment on above: Performed By: #### 2 4321-2 #### [facility] ([facility]) LAB [address] [place] [address] 10882 PT Coag (PPP) [Time]on 04-27 INR Coag (PPP) [Relative time] 1.2 {INR} Normal <=5.0 [facility] Comment on above: Result Comment: The recommended therapeutic INR range for most cardiac indications is 2.0-3.0 For high intensity therapy (i.e. mechanical heart valves), the recommended range is 2.5-3.5 Performed By: #### 5 902-2 #### [facility] ([facility]) LAB [address] [place] [address] 78663 Prothrombin timeon 3 PT Coag (PPP) [Time] 14.5 s Normal 11.9-14.7 [facility] Comment on above: Performed By: #### 5 902-2 #### [facility] ([facility]) LAB [address] [place] [address] 57760 PT Coag (PPP) [Time]on 04-26 INR Coag (PPP) [Relative time] 1.2 {INR} Normal <=5.0 [facility] Comment on above: Result Comment: The recommended therapeutic INR range for most cardiac indications is 2.0-3.0 For high intensity therapy (i.e. mechanical heart valves), the recommended range is 2.5-3.5 Performed By: #### 2 4321-2 #### [facility] ([facility]) LAB [address] [place] [address] 46482 Prothrombin timeon 3 PT Coag (PPP) [Time] 14.3 s Normal 11.9-14.7 [facility] Comment on above: Performed By: #### 2 4321-2 #### [facility] ([facility]) LAB [address] [place] [address] 10634 Basic metabolic 2000 panelon 04-25-2022 Anion gap [Moles/Vol] 7 mmol/L Normal 6-18 [facility] Comment on above: Performed By: #### 2 4321-2 #### [facility] [place] [facility] [address] [place] [address] 75658 Calcium [Mass/Vol] 8.5 mg/dL Low 8.9-10.3 [facility] Comment on above: Performed By: #### 2 4321-2 #### [facility] [place] [facility] [address] [place] [address] 61881 Chloride [Moles/Vol] 104 mmol/L Normal 98-107 [facility] Comment on above: Performed By: #### 2 4321-2 #### [facility] [place] [facility] [address] [place] [address] 71689 CO2 [Moles/Vol] 30 mmol/L Normal 22-32 [facility] Comment on above: Performed By: #### 2 4321-2 #### [facility] [place] [facility] [address] [place] [address] 73938 Creatinine [Mass/Vol] 1.00 mg/dL Normal 0.60-1.30 [facility] Comment on above: Performed By: #### 2 4321-2 #### [facility] [place] [facility] [address] [place] [id number] GFR/1.73 sq M.predicted among non-blacks MDRD (S/P/Bld) [Vol rate/Area] 63 mL/min/{1.73_m2} Normal >=60 [facility] Comment on above: Result Comment: Effe ctive January 08, 2022, calculation based on the?Chronic Kidney Disease Epidemiology Collaboration (CKD-EPI) equation refit?without adjustment for race. Performed By: #### 2 4321-2 #### [facility] [place] [facility] [address] [place] [address] [id number] Glucose [Mass/Vol] 89 mg/dL Normal 70-99 [facility] Comment on above: Performed By: #### 2 4321-2 #### [facility] [place] [facility] [address] [place] [address], [place] [address] Potassium [Moles/Vol] 5.2 mmol/L High 3.6-5.1 [facility] Comment on above: Performed By: #### 2 4321-2 #### [facility] [place] [facility] [address] [place] [address] 29185 Sodium [Moles/Vol] 141 mmol/L Normal 136-145 [facility] Comment on above: Performed By: #### 2 4321-2 #### [facility] [place] [facility] [address] [place] [address] 29862 Urea nitrogen [Mass/Vol] 25 mg/dL High 8-20 [facility] Comment on above: Performed By: #### 2 4321-2 #### [facility] [place] [facility] [address] [place] [address] 27104 Urea nitrogen/Creatinine [Mass ratio] 25.0 mg/mg High 12.0-20.0 [facility] Comment on above: Performed By: #### 2 4321-2 #### [facility] [place] [facility] [address] [place] [address] 48138 PT Coag (PPP) [Time]on 04-25 INR Coag (PPP) [Relative time] 1.2 {INR} Normal <=5.0 [facility] Comment on above: Result Comment: The recommended therapeutic INR range for most cardiac indications is 2.0-3.0 For high intensity therapy (i.e. mechanical heart valves), the recommended range is 2.5-3.5 Performed By: #### 5 902-2 #### [facility] [place] [facility] [address] [place] [address] 15105 Prothrombin timeon PT Coag (PPP) [Time] 14.0 s Normal 11.9-14.7 [facility] Comment on above: Performed By: #### 5 902-2 #### [facility] [place] [facility] [address] [place] [address] 20876 Basic metabolic 2000 panelon 04-24-2022 Anion gap [Moles/Vol] 7 mmol/L Normal 6-18 [facility] Comment on above: Performed By: #### 2 4321-2 #### [facility] [place] [facility] [address] [place] [address] Calcium [Mass/Vol] 8.7 mg/dL Low 8.9-10.3 [facility] Comment on above: Performed By: #### 2 4321-2 #### [facility] [place] [facility] [address] [place] [address] 02898 Chloride [Moles/Vol] 106 mmol/L Normal 98-107 [facility] Comment on above: Performed By: #### 2 4321-2 #### [facility] [place] [facility] [address] [place] [address] 79080 CO2 [Moles/Vol] 28 mmol/L Normal 22-32 [facility] Comment on above: Performed By: #### 2 4321-2 #### [facility] [place] [facility] [address] [place] [address] 28802 Creatinine [Mass/Vol] 1.14 mg/dL Normal 0.60-1.30 [facility] Comment on above: Performed By: #### 2 4321-2 #### [facility] [address] [place] [address] 92648 GFR/1.73 sq M.predicted among non-blacks MDRD (S/P/Bld) [Vol rate/Area] 54 mL/min/{1.73_m2} Low >=60 [facility] Comment on above: Result Comment: Effe ctive January 08, 2022, calculation based on the?Chronic Kidney Disease Epidemiology Collaboration (CKD-EPI) equation refit?without adjustment for race. Performed By: #### 2 4321-2 #### [facility] [place] [facility] [address] [place] [address] 97850 Glucose [Mass/Vol] 95 mg/dL Normal 70-99 [facility] Comment on above: Performed By: #### 2 4321-2 #### [facility] [address] [place] [address] Potassium [Moles/Vol] 5.3 mmol/L High 3.6-5.1 [facility] Comment on above: Performed By: #### 2 4321-2 #### [facility] [place] [facility] [address] [place] [address] 86764 Sodium [Moles/Vol] 141 mmol/L Normal 136-145 [facility] Comment on above: Performed By: #### 2 4321-2 #### [facility] [address] [place] [address] 03060 Urea nitrogen [Mass/Vol] 25 mg/dL High 8-20 [facility] Comment on above: Performed By: #### 2 4321-2 #### [facility] ([facility]) LAB [address] [place] [address] 11841 Urea nitrogen/Creatinine [Mass ratio] 21.9 mg/mg High 12.0-20.0 [facility] Comment on above: Performed By: #### 2 4321-2 #### [facility] ([facility]) LAB [address] [place] [address] 22801 Hemogram and platelets WO di fferential panel (Bld)on 04-24-2022 Erythrocyte distribution width (RBC) [Ratio] 16.9 % High 11.0-14.8 [facility] Comment on above: Performed By: #### 2 4317-0 #### [facility] [place] [facility] [address] [place] [address] 71540 Hematocrit (Bld) [Volume fraction] 35.3 % Normal 34.3-47.9 [facility] Comment on above: Performed By: #### 2 4317-0 #### [facility] [place] [facility] [address] [place] [address] 23632 Hemoglobin (Bld) [Mass/Vol] 10.9 g/dL Low 12.0-16.0 [facility] Comment on above: Performed By: #### 2 4317-0 #### [facility] [address] [place] [address] Immature Platelet Fraction 14.0 % High 1.4-10.8 [facility] Comment on above: Performed By: #### 2 4317-0 #### [facility] [place] [facility] [address] [place] [address] MCH 28.9 pcg Normal 27.0-34.0 [facility] Comment on above: Performed By: #### 2 7-0 #### [facility] [place] [facility] [address] [place] [address] 39802 MCHC (RBC) [Mass/Vol] 30.9 g/dL Normal 30.8-35.3 [facility] Comment on above: Performed By: #### 2 4317-0 #### [facility] [place] [facility] [address] [place] [address] 34103 MCV (RBC) [Entitic vol] 93.6 fL Normal 80.0-97.0 [facility] Comment on above: Performed By: #### 2 4317-0 #### [facility] [place] [facility] [address] [place] [address] 65351 Platelet mean volume (Bld) [Entitic vol] 12.9 fL High 6.2-12.1 [facility] Comment on above: Performed By: #### 2 4317-0 #### [facility] [place] [facility] [address] [place] [address] 94457 Platelets (Bld) [#/Vol] 160 10*3/uL Normal 142-424 [facility] Comment on above: Performed By: #### 2 4317-0 #### [facility] [place] [facility] [address] [place] [address] 22293 RBC (Bld) [#/Vol] 3.77 10*6/uL Normal 3.74-5.34 [facility] Comment on above: Performed By: #### 2 4317-0 #### [facility] [place] [facility] [address] [place] [address] 03452 WBC (Bld) [#/Vol] 7.7 10*3/uL Normal 4.6-10.2 [facility] Comment on above: Performed By: #### 2 4317-0 #### [facility] [place] [facility] [address] [place] [address] 12820 PT Coag (PPP) [Time]on 04-24 INR Coag (PPP) [Relative time] 1.1 {INR} Normal <=5.0 [facility] Comment on above: Result Comment: The recommended therapeutic INR range for most cardiac indications is 2.0-3.0 For high intensity therapy (i.e. mechanical heart valves), the recommended range is 2.5-3.5 Performed By: #### 2 4321-2 #### [facility] [place] [facility] [address] [place] [address] 13780 Prothrombin timeon PT Coag (PPP) [Time] 13.9 s Normal 11.9-14.7 [facility] Comment on above: Performed By: #### 2 4321-2 #### [facility] [place] [facility] [address] [place] [address] 06820 Basic metabolic 2000 panelon 04-23-2022 Anion gap [Moles/Vol] 8 mmol/L Normal 6-18 [facility] Comment on above: Performed By: #### 2 4321-2 #### [facility] [place] [facility] [address] [place] [address] 97643 Calcium [Mass/Vol] 8.5 mg/dL Low 8.9-10.3 [facility] Comment on above: Performed By: #### 2 4321-2 #### [facility] [place] [facility] [address] [place] [address] 60401 Chloride [Moles/Vol] 106 mmol/L Normal 98-107 [facility] Comment on above: Performed By: #### 2 4321-2 #### [facility] [place] [facility] [address] [place] [address] 84761 CO2 [Moles/Vol] 28 mmol/L Normal 22-32 [facility] Comment on above: Performed By: #### 2 4321-2 #### [facility] [place] [facility] [address] [place] [address] 45717 Creatinine [Mass/Vol] 1.01 mg/dL Normal 0.60-1.30 [facility] Comment on above: Performed By: #### 2 4321-2 #### [facility] [place] [facility] [address] [place] [address] 22035 GFR/1.73 sq M.predicted among non-blacks MDRD (S/P/Bld) [Vol rate/Area] 62 mL/min/{1.73_m2} Normal >=60 [facility] Comment on above: Result Comment: Effe ctive January 08, 2022, calculation based on the?Chronic Kidney Disease Epidemiology Collaboration (CKD-EPI) equation refit?without adjustment for race. Performed By: #### 2 4321-2 #### [facility] [place] [facility] [address] [place] [address] 61874 Glucose [Mass/Vol] 108 mg/dL High 70-99 [facility] Comment on above: Performed By: #### 2 4321-2 #### [facility] [address] [place] [address] 86879 Potassium [Moles/Vol] 5.0 mmol/L Normal 3.6-5.1 [facility] Comment on above: Performed By: #### 2 4321-2 #### [facility] [place] [facility] [address] [place] [address] 11603 Sodium [Moles/Vol] 142 mmol/L Normal 136-145 [facility] Comment on above: Performed By: #### 2 4321-2 #### [facility] [place] [facility] [address] [place] [address] 17013 Urea nitrogen [Mass/Vol] 23 mg/dL High 8-20 [facility] Comment on above: Performed By: #### 2 4321-2 #### [facility] ([facility]) LAB [address] [place] [address] 06084 Urea nitrogen/Creatinine [Mass ratio] 22.8 mg/mg High 12.0-20.0 [facility] Comment on above: Performed By: #### 2 4321-2 #### [facility] [place] [facility] LAB [address] [place] [address] 25010 Hemogram and platelets WO di fferential panel (Bld)on 04-23-2022 Basophils (Bld) [#/Vol] 0.06 10*3/uL Normal 0.00-0.20 [facility] Comment on above: Performed By: #### 2 4321-2 #### [facility] ([facility]) LAB [address] [place] [address] 83334 Basophils/100 WBC (Bld) 0.7 % Normal 0.0-2.0 [facility] Comment on above: Performed By: #### 2 4321-2 #### [facility] ([facility]) LAB [address] [place] [address] 82379 Eosinophils (Bld) [#/Vol] 0.17 10*3/uL Normal 0.00-0.70 [facility] Comment on above: Performed By: #### 2 4321-2 #### [facility] ([facility]) LAB [address] [place] [address] 94448 Eosinophils/100 WBC (Bld) 2.1 % Normal 0.0-7.0 [facility] Comment on above: Performed By: #### 2 4321-2 #### [facility] ([facility]) LAB [address] [place] [address] 51021 Erythrocyte distribution width (RBC) [Ratio] 17.0 % High 11.0-14.8 [facility] Comment on above: Performed By: #### 2 4321-2 #### [facility] ([facility]) LAB [address] [place] [address] 60481 Hematocrit (Bld) [Volume fraction] 34.1 % Low 34.3-47.9 [facility] Comment on above: Performed By: #### 2 4321-2 #### [facility] [address] [place] [address] 53906 Hemoglobin (Bld) [Mass/Vol] 10.4 g/dL Low 12.0-16.0 [facility] Comment on above: Performed By: #### 2 4320-2 #### [facility] [place] [facility] [address] [place] [address] 09243 Immature granulocytes (Bld) [#/Vol] 0.02 10*3/uL Normal 0.00-0.10 [facility] Comment on above: Performed By: #### 2 4320-2 #### [facility] ([facility]) LAB [address] [place] [address] 49099 Immature granulocytes/100 WBC (Bld) 0.2 % Normal 0.0-1.2 [facility] Comment on above: Performed By: #### 2 4320-2 #### [facility] ([facility]) LAB [address] [place] [address] 09832 Lymphocytes (Bld) [#/Vol] 2.24 10*3/uL Normal 1.00-4.80 [facility] Comment on above: Performed By: #### 2 4320-2 #### [facility] ([facility]) LAB [address] [place] [address] 34315 Lymphocytes/100 WBC (Bld) 27.4 % Normal 17.9-49.6 [facility] Comment on above: Performed By: #### 2 1-2 #### [facility] ([facility]) LAB [address] [place] [address] 97722 MCH 28.4 pcg Normal 27.0-34.0 [facility] Comment on above: Performed By: #### 2 1-2 #### [facility] ([facility]) LAB [address] [place] [address] 90096 MCHC (RBC) [Mass/Vol] 30.5 g/dL Low 30.8-35.3 [facility] Comment on above: Performed By: #### 2 4321-2 #### [facility] [place] [facility] [address] [place] [address] MCV (RBC) [Entitic vol] 93.2 fL Normal 80.0-97.0 [facility] Comment on above: Performed By: #### 2 4321-2 #### [facility] [place] [facility] [address] [place] [address] Monocytes (Bld) [#/Vol] 0.98 10*3/uL High 0.00-0.90 [facility] Comment on above: Performed By: #### 2 1-2 #### [facility] [place] [facility] [address] [place] [address] 11670 Monocytes/100 WBC (Bld) 12.0 % Normal 0.0-12.0 [facility] Comment on above: Performed By: #### 2 1-2 #### [facility] [address] [place] [address] 00642 Neutrophils Absolute 4.71 K/mcL Normal 1.80-7.70 [facility] Comment on above: Performed By: #### 2 1-2 #### [facility] [place] [facility] [address] [place] [address] 02045 Neutrophils/100 WBC (Bld) 57.6 % Normal 38.1-75.5 [facility] Comment on above: Performed By: #### 2 1-2 #### [facility] [place] [facility] [address] [place] [address] 20718 Platelet mean volume (Bld) [Entitic vol] 13.0 fL High 6.2-12.1 [facility] Comment on above: Performed By: #### 2 1-2 #### [facility] [place] [facility] [address] [place] [address] Platelets (Bld) [#/Vol] 175 10*3/uL Normal 142-424 [facility] Comment on above: Performed By: #### 2 4321-2 #### [facility] [place] [facility] [address] [place] [address] RBC (Bld) [#/Vol] 3.66 10*6/uL Low 3.74-5.34 [facility] Comment on above: Performed By: #### 2 4321-2 #### [facility] [place] [facility] [address] [place] [address] WBC (Bld) [#/Vol] 8.2 10*3/uL Normal 4.6-10.2 [facility] Comment on above: Performed By: #### 2 4321-2 #### [facility] [address] [place] [address] 52185 PT Coag (PPP) [Time]on 04-23 INR Coag (PPP) [Relative time] 1.1 {INR} Normal <=5.0 [facility] Comment on above: Result Comment: The recommended therapeutic INR range for most cardiac indications is 2.0-3.0 For high intensity therapy (i.e. mechanical heart valves), the recommended range is 2.5-3.5 Performed By: #### 2 4321-2 #### [facility] [address] [place] [address] Prothrombin timeon PT Coag (PPP) [Time] 13.4 s Normal 11.9-14.7 [facility] Comment on above: Performed By: #### 2 4321-2 #### [facility] [address] [place] [address] 44864 Basic metabolic 2000 panelon 04-22-2022 Anion gap [Moles/Vol] 6 mmol/L Normal 6-18 [facility] Comment on above: Performed By: #### 1 988-5 #### [facility] ([facility] [address] [place] [address] Calcium [Mass/Vol] 8.3 mg/dL Low 8.9-10.3 [facility] Comment on above: Performed By: #### 1 988-5 #### [facility] [address] [place] [address] Chloride [Moles/Vol] 107 mmol/L Normal 98-107 [facility] Comment on above: Performed By: #### 1 988-5 #### [facility] [address] [place] [address] CO2 [Moles/Vol] 25 mmol/L Normal 22-32 [facility] Comment on above: Performed By: #### 1 988-5 #### [facility] [address] [place] [address] Creatinine [Mass/Vol] 1.06 mg/dL Normal 0.60-1.30 [facility] Comment on above: Performed By: #### 1 988-5 #### [facility] [address] [place] [address] 04685 GFR/1.73 sq M.predicted among non-blacks MDRD (S/P/Bld) [Vol rate/Area] 59 mL/min/{1.73_m2} Low >=60 [facility] Comment on above: Result Comment: Effe ctive January 08, 2022, calculation based on the?Chronic Kidney Disease Epidemiology Collaboration (CKD-EPI) equation refit?without adjustment for race. Performed By: #### 1 988-5 #### [facility] [address] [place] [address] Glucose [Mass/Vol] 104 mg/dL High 70-99 [facility] Comment on above: Performed By: #### 1 988-5 #### [facility] [address] [place] [address] 21034 Potassium [Moles/Vol] 4.7 mmol/L Normal 3.6-5.1 [facility] Comment on above: Performed By: #### 1 988-5 #### [facility] [address] [facility] [address] Sodium [Moles/Vol] 138 mmol/L Normal 136-145 [facility] Comment on above: Performed By: #### 1 988-5 #### [facility] [address] [place] [address] Urea nitrogen [Mass/Vol] 24 mg/dL High 8-20 [facility] Comment on above: Performed By: #### 1 988-5 #### [facility] [address] [place] [address] Urea nitrogen/Creatinine [Mass ratio] 22.6 mg/mg High 12.0-20.0 [facility] Comment on above: Performed By: #### 1 988-5 #### [facility] [address] [place] [address] Anion gap [Moles/Vol] 6 mmol/L 6 - 18 [facility] Calcium [Mass/Vol] 8.3 mg/dL Low 8.9 - 10. 3 mg/dL [facility] Chloride [Moles/Vol] 107 mmol/L 98 - 10 7 mmol/L [facility] CO2 [Moles/Vol] 25 mmol/L 22 - 32 mmol/L [facility] Creatinine [Mass/Vol] 1.06 mg/dL 0.60 - 1.30 mg/dL [facility] GFR/1.73 sq M.predicted among non-blacks MDRD (S/P/Bld) [Vol rate/Area] 59 mL/min/{1.73_m2} Low - PINF [facility] Comment on above: Effective January 08, 2022, calculation based on the Chronic Kidney Disease Epidemiology Collaboration (CKD-EPI) equation refit without adjustment for race. Glucose [Mass/Vol] 104 mg/dL High 70 - 99 mg/dL [facility] Interpretation and review of laboratory results [facility] Potassium [Moles/Vol] 4.7 mmol/L 3.6 - 5.1 mmol/L [facility] Sodium [Moles/Vol] 138 mmol/L 136 - 145 mmol/L [facility] Urea nitrogen [Mass/Vol] 24 mg/dL High 8 - 20 mg/dL [facility] Urea nitrogen/Creatinine [Mass ratio] 22.6 mg/mg High 12.0 - 20.0 [facility] Hemogram and platelets WO di fferential panel (Bld)on 04-22-2022 Erythrocyte distribution width (RBC) [Ratio] 16.4 % High 11.0-14.8 [facility] Comment on above: Performed By: #### 1 988-5 #### [facility] [address] [place] [address] 01699 Hematocrit (Bld) [Volume fraction] 35.8 % Normal 34.3-47.9 [facility] Comment on above: Performed By: #### 1 988-5 #### [facility] [address] [place] [address] 90053 Hemoglobin (Bld) [Mass/Vol] 10.9 g/dL Low 12.0-16.0 [facility] Comment on above: Performed By: #### 1 988-5 #### [facility] [address] [place] [address] 70536 MCH 28.2 pcg Normal 27.0-34.0 [facility] Comment on above: Performed By: #### 1 988-5 #### [facility] [address] [place] [address] 63962 MCHC (RBC) [Mass/Vol] 30.4 g/dL Low 30.8-35.3 [facility] Comment on above: Performed By: #### 1 988-5 #### [facility] [address] [place] [address] [id number] MCV (RBC) [Entitic vol] 92.5 fL Normal 80.0-97.0 [facility] Comment on above: Performed By: #### 1 988-5 #### [facility] [address] [place] [address] [id number] Platelet mean volume (Bld) [Entitic vol] 12.4 fL High 6.2-12.1 [facility] Comment on above: Performed By: #### 1 988-5 #### [facility] [address] [place] [address] [id number] Platelets (Bld) [#/Vol] 158 10*3/uL Normal 142-424 [facility] Comment on above: Performed By: #### 1 988-5 #### [facility] [address] [place] [id number] RBC (Bld) [#/Vol] 3.87 10*6/uL Normal 3.74-5.34 [facility] Comment on above: Performed By: #### 1 988-5 #### [facility] [address] [place] [address] [id number] WBC (Bld) [#/Vol] 9.0 10*3/uL Normal 4.6-10.2 [facility] [facility] Comment on above: Performed By: #### 1 988-5 #### [facility] [address] [place] [address] Erythrocyte distribution width (RBC) [Ratio] 16.4 % High 11.0 - 14.8 % [facility] Hematocrit (Bld) [Volume fraction] 35.8 % 34.3 - 47.9 % [facility] Hemoglobin (Bld) [Mass/Vol] 10.9 g/dL Low 12.0 - 16.0 g/dL [facility] Interpretation and review of laboratory results Abnormal [facility] MCH (RBC) [Entitic mass] 28.2 pg [facility] MCHC (RBC) [Mass/Vol] 30.4 g/dL Low 30.8 - 35.3 g/dL [facility] MCV (RBC) [Entitic vol] 92.5 fL [facility] Platelet mean volume (Bld) [Entitic vol] 12.4 fL High [facility] th Platelets (Bld) [#/Vol] 158 10*3/uL [facility] RBC (Bld) [#/Vol] 3.87 10*6/uL [facility] WBC (Bld) [#/Vol] 9.0 10*3/uL [facility] PT Coag (PPP) [Time]on 04-22 INR Coag (PPP) [Relative time] 0.9 {INR} Normal <=5.0 [facility] Comment on above: Result Comment: The recommended therapeutic INR range for most cardiac indications is 2.0-3.0 For high intensity therapy (i.e. mechanical heart valves), the recommended range is 2.5-3.5 Performed By: #### 1 988-5 #### [facility] [address] [place] [address] INR Coag (PPP) [Relative time] 0.9 {INR} NINF - 5.0 [facility] Comment on above: The recommended ther apeutic INR range for most cardiac indications is 2.0-3.0 For high intensity therapy (i.e. mechanical heart valves), the recommended range is 2.5-3.5 Interpretation and review of laboratory results Normal [facility] PT Coag (Bld) [Time] 12.6 s [facility] Prothrombin timeon 3 PT Coag (PPP) [Time] 12.6 s Normal 11.9-14.7 [facility] Comment on above: Performed By: #### 1 988-5 #### [facility] [address] [place] [address] SARS-CoV-2 (COVID-19) RNA NA A+probe Ql (Resp)on 04-22-2022 Interpretation and review of laboratory results Normal [facility] SARS-CoV-2 (COVID-19) RdRp gene REBECCA+probe Ql (Resp) Not detected Not Detected [facility] SARS-CoV-2 RNA Resp Ql REBECCA+p robeon 04-22-2022 SARS-CoV-2 (COVID-19) RNA REBECCA+probe Ql (Resp) Not detected Normal Not Detected [facility] Comment on above: Performed By: #### 5 75-1 #### [facility] ([facility]) [facility] [address] [place] [address] Basic metabolic 2000 panelon 04-21-2022 Anion gap [Moles/Vol] 9 mmol/L Normal 6-18 [facility] Comment on above: Performed By: #### 1 988-5 #### [facility] [address] [place] [address] Calcium [Mass/Vol] 8.2 mg/dL Low 8.9-10.3 [facility] Comment on above: Performed By: #### 1 988-5 #### [facility] [address] [place] [address] Chloride [Moles/Vol] 108 mmol/L High 98-107 Moun [facility] Comment on above: Performed By: #### 1 988-5 #### [facility] [address] [place] [address] CO2 [Moles/Vol] 22 mmol/L Normal 22-32 [facility] Comment on above: Performed By: #### 1 988-5 #### [facility] [address] [place] [address] Creatinine [Mass/Vol] 1.19 mg/dL Normal 0.60-1.30 [facility] Comment on above: Performed By: #### 1 988-5 #### [facility] [address] [place] [address] GFR/1.73 sq M.predicted among non-blacks MDRD (S/P/Bld) [Vol rate/Area] 51 mL/min/{1.73_m2} Low >=60 [facility] Comment on above: Result Comment: Effe ctive January 08, 2022, calculation based on the?Chronic Kidney Disease Epidemiology Collaboration (CKD-EPI) equation refit?without adjustment for race. Performed By: #### 1 988-5 #### [facility] [address] [place] [address] Glucose [Mass/Vol] 135 mg/dL High 70-99 [facility] Comment on above: Performed By: #### 1 988-5 #### [facility] [address] [place] [address] Potassium [Moles/Vol] 4.6 mmol/L Normal 3.6-5.1 [facility] Comment on above: Performed By: #### 1 988-5 #### [facility] [address] [place] [address] Sodium [Moles/Vol] 139 mmol/L Normal 136-145 [facility] Comment on above: Performed By: #### 1 988-5 #### [facility] [address] [place] [address]11 Urea nitrogen [Mass/Vol] 19 mg/dL Normal 8-20 [facility] Comment on above: Performed By: #### 1 988-5 #### [facility] [address] [place] [address] Urea nitrogen/Creatinine [Mass ratio] 16.0 mg/mg Normal 12.0-20.0 [facility] Comment on above: Performed By: #### 1 988-5 #### [facility] [address] [place] [address]3627 Anion gap [Moles/Vol] 9 mmol/L 6 - 18 [facility] Calcium [Mass/Vol] 8.2 mg/dL Low 8.9 - 10. 3 mg/dL [facility] Chloride [Moles/Vol] 108 mmol/L High 98 - 10 7 mmol/L [facility] CO2 [Moles/Vol] 22 mmol/L 22 - 32 mmol/L [facility] Creatinine [Mass/Vol] 1.19 mg/dL 0.60 - 1.30 mg/dL [facility] GFR/1.73 sq M.predicted among non-blacks MDRD (S/P/Bld) [Vol rate/Area] 51 mL/min/{1.73_m2} Low - PINF [facility] Comment on above: Effective January 08, 2022, calculation based on the Chronic Kidney Disease Epidemiology Collaboration (CKD-EPI) equation refit without adjustment for race. Glucose [Mass/Vol] 135 mg/dL High 70 - 99 mg/dL [facility] Interpretation and review of laboratory results Abnormal [facility] Potassium [Moles/Vol] 4.6 mmol/L 3.6 - 5.1 mmol/L [facility] Sodium [Moles/Vol] 139 mmol/L 136 - 145 mmol/L [facility] Urea nitrogen [Mass/Vol] 19 mg/dL 8 - 20 mg/dL [facility] Urea nitrogen/Creatinine [Mass ratio] 16.0 mg/mg 12.0 - 20.0 [facility] Hemogram and platelets WO di fferential panel (Bld)on 04-21-2022 Erythrocyte distribution width (RBC) [Ratio] 15.9 % High 11.0-14.8 [facility] Comment on above: Performed By: #### 1 988-5 #### [facility] [address] [place] [address] Hematocrit (Bld) [Volume fraction] 37.0 % Normal 34.3-47.9 [facility] Comment on above: Performed By: #### 1 988-5 #### [facility] [address] [place] [address] Hemoglobin (Bld) [Mass/Vol] 11.6 g/dL Low 12.0-16.0 [facility] Comment on above: Performed By: #### 1 988-5 #### [facility] [address] [place] [address] MCH 28.2 pcg Normal 27.0-34.0 [facility] Comment on above: Performed By: #### 1 988-5 #### [facility] [address] [place] [address] MCHC (RBC) [Mass/Vol] 31.4 g/dL Normal 30.8-35.3 [facility] Comment on above: Performed By: #### 1 988-5 #### [facility] [address] [place] [address] 13275 MCV (RBC) [Entitic vol] 90.0 fL Normal 80.0-97.0 [facility] Comment on above: Performed By: #### 1 988-5 #### [facility] [address] [place] [address]4364 Platelet mean volume (Bld) [Entitic vol] 12.3 fL High 6.2-12.1 [facility] Comment on above: Performed By: #### 1 988-5 #### [facility] [address] [place] [address]34 Platelets (Bld) [#/Vol] 220 10*3/uL Normal 142-424 [facility] Comment on above: Performed By: #### 1 988-5 #### [facility] [address] [place] [address]33[address] RBC (Bld) [#/Vol] 4.11 10*6/uL Normal 3.74-5.34 [facility] Comment on above: Performed By: #### 1 988-5 #### [facility] [address] [place] [address]1418 WBC (Bld) [#/Vol] 13.5 10*3/uL High 4.6-10.2 [facility] Comment on above: Performed By: #### 1 988-5 #### [facility] [address] [place] [address] 41799 Erythrocyte distribution width (RBC) [Ratio] 15.9 % High 11.0 - 14.8 % [facility] Hematocrit (Bld) [Volume fraction] 37.0 % 34.3 - 47.9 % [facility] Hemoglobin (Bld) [Mass/Vol] 11.6 g/dL Low 12.0 - 16.0 g/dL [facility] Interpretation and review of laboratory results Abnormal [facility] MCH (RBC) [Entitic mass] 28.2 pg [facility] MCHC (RBC) [Mass/Vol] 31.4 g/dL 30.8 - 35.3 g/dL [facility] MCV (RBC) [Entitic vol] 90.0 fL [facility] Platelet mean volume (Bld) [Entitic vol] 12.3 fL High [facility] th Platelets (Bld) [#/Vol] 220 10*3/uL [facility] RBC (Bld) [#/Vol] 4.11 10*6/uL [facility] WBC (Bld) [#/Vol] 13.5 10*3/uL [facility] Pathology studyOrdered By: Valerie Segura on 04-21-2022 Citation Rick (Reference lab test) n9ikbLRbJKUxaKCzVRIxS CppbtHjIHLmsBAbA8Ksmk rmVCjiHG1vUE5jnEpyuKS adISnSMCsNvSqg6bgi370 zDWru0bgTZKDjnhboDt3e 0bxIAJIVRhqFWTYSMw8tG qbG04ou7V0SexhV2cxKMP xTPxswyRowyL3EUVrgWRn BUw3PHXksCDmeiGaUpHdL GHcrWVjuJO8KONbSY0zpl kaJLigXByeDZArcvN5BBE mrJUwH6MtYUShEZ5kfrso OAA4JWocSIDnTJL6PvHyM JQyf2Cruta5RiZweIJwHH xwbGFpblxpXGYxXGZzMTh mI8RtQHIsSIL3YEWbkeov NQpwO13tsW5qRL13NPvma aHyKATef4DbQUZoSRKxIX ofYEBifvUkNFrniX1wf1k 6EUilCq2qGIYkovbvIXN9 EzEtUN79RluzzWRyIMODz mUsIENvbHVtYnVzLCBPaG nvSOKeVmI1LhGBeOUag1A km4PnRpJqnXLeaW8pbIgd lzM2KZBchLCtDv6mjYOxK lxwYXJ9 [employer] Work Phone: Microscopic description Rick (Endomyocardium) d0pcbRHsGXZynLTRXUSzM HKcKD6bkJjngJm9hHbmAI AweaC7oIJaZGdkq6voZIH 8w3rfbwTOOvqoVUYiFY2b SKsyVIMzZJ1qUiExNPIcQ mYyXHBhcGVydzEyMjQwXH BhwUFiwTP8JYVtUJ1timp aHPosWAotAYOcopW1MFWn oVPiT4EnOZQoPN6ebdvpV NE7JBHUJfpaWm5xsDEcnF ANCntcZjFcZmNoYXJzZXQ kYOHfhNzvLSYjWYz5mL4K u4eaLfuwI4qzsjWqmGNuN n7mhBSUZVhtRUJMAAh6fB 6VTITpF4MsES1Bb9kbKKD kmJMuEDL3LNzad0wkPStj IZC3NZCcICAzYMPfPI9HL cUkIVFqOnJ1FnQ2IeV4EV w7CZEOVRAoZBs2RuxdKNw 3YMo5GXhpqdkfACj8XJJa DTaubSXeJV1ddBgrYgibq Evcl5WopQUpQHFrNGkooA QgNTEwMDIgXFxkYiBPVlI nVtRlUZh2GKefJNXqSVq1 PNdkF6MDLIDuBHJ5YdCkV JReDjW5JRz9WQMEFn1eWb V5CyUtQUT1ClP9HNOaXDK cXHQgMiBcXHNzIDMgXFxm aQSxOB2jsVwwJGEhWS5II HBsYWluXGYxXGZzMjAgQS 2jO38nAAnnDHAqjKbgQvV mUFChtCJyfRUrzTLze1D3 fSSoSWj5nYKbi3I2tWegM GluZmlsdHJhdGVzOlxwYX IgDQpccGFyZCANClxwbGF pblxmMVxmczIwXHBsYWlu AVw0bzBoHEHiBaNwQAGwL 17km4EZt4LeYH8VGLz3au IrwanugF5cKYMevnXkJNj cZjFcZnMyMCBSZWNlaXZl WROumaClx4AhBKmoykOyX WDsvSKhPKbzjBqpnOA1zO YxyFWyJX0cMTEwLILlVHQ 3zCNfr5F3RVLpbej0DADm oSuilkDnhP6ozN2yjLGbE yBpbmZpbHRyYXRlcywgbG VmdCBrbmVlIiBpcyBhIDM sY45cLIljcyOuSHOeWD7c PBE6j8i1YYCsnp2lrvL5P YVwWvKgP3JwpWmuYIrmeb 17ocP2iTLdhZCbLBYDeEZ ao1WxR8fpGA7ylWFlbcHa cmYsCL33IIAqgoYzoELxv ORrjNV8QGKnkJ2vKqspQ9 sgQTEuXHBhciANClxwYXI aBBoqk4PuPQckhFurFIRu WpEtAWselda3PG6JHKPtT FxlcGljWHNhMCANClxlcG thVzCiuKAnUlA0SAPzpPD rHBF3CH1arAprLYWvT4Aw I6EvudG4ZXDjlxYDHgbqS rsxmtZvPX9IbE== [facility] Work Phone: Pathology report final diagnosis Narrative y2xbsYAhGNPtwJBeXCYfJ JhwtxUuXMPxmVHyR8Hroo fpSNduRQ7yVQ8bgWpggYK xyTTjQZDaMaOtx6lde126 vQPlf7jrGIAHotlhtXg2l TmxL82ms4R7WrgbI5zgBF QwXGdyZWVuMFxibHVlMDt 9XHBhcGVydzEyMjQwXHBh xMTzoNX4DSPmFC6aucybB ValXUhgLKMuyoP7ALAeoD SbA1GgSFVgRH4xuplrCQU 0DNaaPQIaMTY4SwLaNEPp p3Wwmaz7ZpGnuKc2q6noF OQrUDCvbZbaz4ilLJG2WB ObdDAwA7mehN2kPFFoCE8 dunamb7mxIJvcEFijFHIz zJE0ucP8YFKapVQqE2Igy N1eEBEaYTDafpWjbXovLh W5WHuczYRthnoqDxYyX57 quNX5cPJkpGQeKVkaPoTo M3ghJZOtqwlvjWCvKENmW PBDjKkjJB7vjtJhUPEwVx isBAntDeyauF6txDhaeh4 ccGFyICAgLSBOZWdhdGl2 QWBbh5Rnv1rpobblxEVvs vPodCOarJGxw7R8rJCoQR s4uPIab5F7wFhqLVrhOgc wnG6riGxrmj1jtMWkbC== [employer] Phone: [employer] Phone: Bacteria Spec Anaerobe Culto n 04-20-2022 Bacteria identified Anaer cx Nom (Unsp spec) Culture, Anaerobic Status = F No anaerobes grown after 4 days. Normal [facility] Comment on above: Performed By: #### 3 4556-1 #### [facility] ([facility]) [facility] [address] [place] [address] Performed By: #### 5 75-1 #### [facility] ([facility]) [facility] [address] [place] [address] Bacteria identified Anaer cx Nom (Unsp spec) Culture, Anaerobic Status = F No anaerobes grown after 4 days. Normal [facility] Comment on above: Performed By: #### 3 4556-1 #### [facility] [address] [place] [address] Bacteria Spec BFld Culton Bacteria identified Sterile [...] to a previously preliminary verified report. Normal [facility] Comment on above: Performed By: #### 6 36-1 #### [facility] ([facility]) [facility] [address] [place] [address] Bacteria Tiss Culton 023 Bacteria identified Cx [...] to a previously preliminary verified report. Normal [facility] Comment on above: Performed By: #### 3 4556-1 #### [facility] [address] [place] [address] Performed By: #### 5 75-1 #### [facility] ([facility]) [facility] [address] [place] [address] Cell count panel (Body fld)o n 04-20-2022 Fluid Eosinophils 4.0 % Normal [facility] Comment on above: Performed By: #### 1 988-5 #### [facility] ([facility] [address] [place] [address] Fluid Lining Cells 1.0 % Normal [facility] Comment on above: Performed By: #### 1 988-5 #### [facility] [address] [place] [address] Fluid Lymphocytes 46.0 % Normal [facility] Comment on above: Performed By: #### 1 988-5 #### [facility] [address] [place] [address] Fluid Monocytes/Macrophages 24.0 % Normal [facility] Comment on above: Performed By: #### 1 988-5 #### [facility] [address] [facility] [place] [address] Fluid Neutrophils 25.0 % Normal [facility] Comment on above: Performed By: #### 1 988-5 #### [facility] ([facility] [address] [facility] [place] [address] Clarity (Body fld) [employer] [facility] Color (Body fld) [place] [facility] RBC Auto (Body fld) [#/Vol] 64203 /mm3 [facility] Comment on above: The reference range and other method performance specifications have not been established for this fluid specimen. The test result should be integrated into the clinical context for interpretation. Specimen source Nom (Body fld) Synovial [facility] WBC (Body fld) [#/Vol] 111 /mm3 [facility] Comment on above: The reference range and other method performance specifications have not been established for this fluid specimen. The test result should be integrated into the clinical context for interpretation. [facility] Differential panel (Body fld )Ordered By: Valarie Delacruz on 04-20-2022 Eosinophils/100 WBC Manual cnt (Body fld) 4.0 % [facility] Fluid Lining Cells 1.0 % [facility] Lymphocytes/100 WBC Manual cnt (Body fld) 46.0 % [facility] Monocytes+Macrophages /100 WBC (Body fld) 24.0 % [facility] th Neutrophils/100 WBC (Body fld) 25.0 % [facility] Fungus Skin Culton 3 Fungus identified Cx Nom (Skin) Culture, Fungus Status = F No growth at 4 weeks Normal [facility] Comment on above: Performed By: #### 5 75-1 #### [facility] ([facility]) [facility] [address] [place] [address] Performed By: #### 3 4556-1 #### [facility] [address] [place] [address] Fungus identified Cx Nom (Skin) Culture, Fungus Status = F No growth at 4 weeks Normal [facility] Comment on above: Performed By: #### 5 75-1 #### [facility] ([facility]) [facility] [address] [place] [address] Glucose Auto test strip (Bld ) [Mass/Vol]on 04-20-2022 Glucose [Mass/Vol] 135 mg/dL High 70-99 [facility] Comment on above: Performed By: #### 1 988-5 #### [facility] [address] [place] [address] Glucose [Mass/Vol] 135 mg/dL High 70 - 99 mg/dL [facility] Interpretation and review of laboratory results Abnormal [facility] Mycobacterium Spec Culton Mycobacterium sp identified Org specific cx Nom (Unsp spec) Culture AFB Status = F No growth at 8 weeks AFB Stain Status = F No acid fast bacilli seen Normal [facility] Comment on above: Performed By: #### 5 43-9 #### [facility] ([facility]) [facility] [address] [place] [address] Performed By: #### 3 4556-1 #### [facility] [address] [place] [address] Performed By: #### 5 75-1 #### [facility] ([facility]) [facility] [address] [place] [address] Mycobacterium sp identified Org specific cx Nom (Unsp spec) Culture AFB Status = F No growth at 8 weeks AFB Stain Status = F No acid fast bacilli seen Normal [facility] Comment on above: Performed By: #### 5 75-1 #### [facility] [place] ([facility]) [facility] [address] [place] [address] No Panel InformationOrdered By: Hilary Albarran on 04-20-2022 [facility] PT Coag (PPP) [Time]on 04-20 aPTT Coag (Bld) [Time] 22.0 s Low 23.3-35.3 [facility] Comment on above: Performed By: #### 1 988-5 #### [facility] [place] ([facility]) [facility] [address] [place] [address] PT Coag (PPP) [Time]Ordered By: Hilary Albarran on 04-20-2022 INR Coag (PPP) [Relative time] 1.0 {INR} NINF - 5.0 [facility] Comment on above: The recommended ther apeutic INR range for most cardiac indications is 2.0-3.0 For high intensity therapy (i.e. mechanical heart valves), the recommended range is 2.5-3.5 Interpretation and review of laboratory results Normal [facility] PT Coag (Bld) [Time] 13.4 s [facility] Pathology studyon 04-20-2022 Pathology study Soft [...] was performed at [facility], [address] [place], [place] [id number]. Microscopic examination was performed. Normal [facility] Comment on above: Performed By: #### 1 1526-1 #### [facility] ([facility]) [facility] [address] [place] [address] [facility] ([facility] [address] [place] [address] XR KNEE 1-2 VIEWS LEFTon XR KNEE [...] Self Edit Transcribed Date: 04/20/2022 16:06 Normal [facility] XR Knee 1-2 Views Lefton FINDINGS/IMPRESSION: [...] By: Self Edit Transcribed Date: 04/20/2022 16:06 [facility] Radiology Study observation (narrative) [facility] XR Knee 1-2 Views LeftOrdere d By: Heriberto Saldana on 04-20-2022 [facility] Work Phone: aPTT Coag (Bld) [Time]on aPTT Coag (PPP) [Time] 22.0 s Low [facility] Interpretation and review of laboratory results Abnormal [facility] Covid-19 PCR (CVDTB)on 04-02 SARS-CoV-2 (COVID-19) RNA REBECCA+probe Ql (Unsp spec) Not detected Normal NOT DETECTED [facility] Comment on above: Result Comment: When diagnostic [...] for this test is supported by the [place] of Health and Human Service's declaration that [...] be used). Performed By: #### C #### [facility] [address] [address] [address] Jeffrey Thomas Bacteria Spec Anaerobe Culto n 04-05-2022 Bacteria identified Anaer cx Nom (Unsp spec) Culture, Anaerobic Status = F No anaerobes grown after 4 days. Normal [facility] Comment on above: Performed By: #### 5 75-1 #### [facility] ([facility]) [facility] [address] [place] [address] Bacteria Spec BFld Culton Bacteria identified Sterile [...] to a previously preliminary verified report. Normal [facility] Comment on above: Performed By: #### 5 75-1 #### [facility] ([facility]) [facility] [address] [place] [address] Blood type and Indirect anti body screen panel (Bld)on 04-05-2022 ABO group Nom (Bld) A Normal [facility] Comment on above: Performed By: #### 3 4532-2 #### [facility] [address] [place] [address] Rh Type Positive Normal [facility] Comment on above: Performed By: #### 3 4532-2 #### [facility] [address] [place] [address] CRP [Mass/Vol]on 04-05-2022 Anion gap [Moles/Vol] 9 mmol/L Normal 6-18 [facility] Comment on above: Performed By: #### 1 988-5 #### [facility] [address] [facility] [place] [address] Calcium [Mass/Vol] 9.4 mg/dL Normal 8.9-10.3 [facility] Comment on above: Performed By: #### 1 988-5 #### [facility] [address] [place] [address] Chloride [Moles/Vol] 105 mmol/L Normal 98-107 Moun [facility] Comment on above: Performed By: #### 1 988-5 #### [facility] [address] [place] [address] CO2 [Moles/Vol] 24 mmol/L Normal 22-32 [facility] Comment on above: Performed By: #### 1 988-5 #### [facility] [address] [place] [address] Creatinine [Mass/Vol] 1.07 mg/dL Normal 0.60-1.30 Ar[facility] Comment on above: Performed By: #### 1 988-5 #### [facility] [address] [place] [address] GFR/1.73 sq M.predicted among non-blacks MDRD (S/P/Bld) [Vol rate/Area] 58 mL/min/{1.73_m2} Low >=60 [facility] Comment on above: Result Comment: Effe ctive January 08, 2022, calculation based on the?Chronic Kidney Disease Epidemiology Collaboration (CKD-EPI) equation refit?without adjustment for race. Performed By: #### 1 988-5 #### [facility] [address] [place] [address] Glucose [Mass/Vol] 97 mg/dL Normal 70-99 [facility] Comment on above: Performed By: #### 1 988-5 #### [facility] [address] [place] [address] Potassium [Moles/Vol] 4.9 mmol/L Normal 3.6-5.1 Ar[facility] Comment on above: Performed By: #### 1 988-5 #### [facility] [address] [place] [address] Sodium [Moles/Vol] 138 mmol/L Normal 136-145 [facility] Comment on above: Performed By: #### 1 988-5 #### [facility] [address] [place] [id number] Urea nitrogen [Mass/Vol] 22 mg/dL High 8-20 [facility] Comment on above: Performed By: #### 1 988-5 #### [facility] [address] [place] [id number] Urea nitrogen/Creatinine [Mass ratio] 20.6 mg/mg High 12.0-20.0 [facility] Comment on above: Performed By: #### 1 988-5 #### [facility] [address] [place] [id number] Cell count panel (Body fld)o n 04-05-2022 Fluid Eosinophils 3.0 % Normal [facility] Comment on above: Result Comment: Boy ected result: Previously reported as 6.0 % on 04/05/2022 at 1416 EST. Performed By: #### 3 4556-1 #### [facility] [address] [place] [id number] Fluid Lymphocytes 34.0 % Normal [facility] Comment on above: Result Comment: Boy ected result: Previously reported as 43.0 % on 04/05/2022 at 1416 EST. Performed By: #### 3 4556-1 #### [facility] [address] [place] [address] Fluid Monocytes/Macrophages 23.0 % Normal [facility] Comment on above: Result Comment: Boy ected result: Previously reported as 9.0 % on 04/05/2022 at 1416 EST. Performed By: #### 3 4556-1 #### [facility] [address] [place] [address] Fluid Neutrophils 40.0 % Normal [facility] Comment on above: Result Comment: Boy ected result: Previously reported as 39.0 % on 04/05/2022 at 1416 EST. Performed By: #### 3 4556-1 #### [facility] [address] [place] [id number] Fluid Other Cells Normal [facility] Comment on above: Result Comment: Lini ng cells Corrected result: Previously reported as 3.0 % on 04/05/2022 at 1416 EST. Performed By: #### 3 4556-1 #### [facility] [address] [place] [address] Fungus Skin Culton Fungus identified Cx Nom (Skin) Culture, Fungus Status = F No growth at 4 weeks Normal [facility] Comment on above: Performed By: #### 3 4556-1 #### [facility] [address] [place] [address] Hemogram and platelets WO di fferential panel (Bld)on 04-05-2022 Sed Rate 41 mm/hr High 0-20 [facility] Comment on above: Performed By: #### 5 75-1 #### [facility] [address] [place] [address] Mycobacterium Spec Culton Mycobacterium sp identified Org specific cx Nom (Unsp spec) Culture AFB Status = F No growth at 8 weeks AFB Stain Status = F No acid fast bacilli seen Normal [facility] Comment on above: Performed By: #### 1 988-5 #### [facility] [address] [place] [address] Basic metabolic 2000 panelon 01-05-2022 Anion gap [Moles/Vol] 12 mmol/L [facility] Calcium [Mass/Vol] 9.1 mg/dL 8.9 - 10. 3 mg/dL [facility] Chloride [Moles/Vol] 103 mmol/L 98 - 10 7 mmol/L [facility] CO2 [Moles/Vol] 19 mmol/L Low 22 - 32 mmol/L [facility] Creatinine [Mass/Vol] 1.28 mg/dL 0.60 - 1.30 mg/dL [facility] GFR/1.73 sq M.predicted MDRD (S/P/Bld) [Vol rate/Area] 44 mL/min/{1.73_m2} Low >=60 mL/min/1.73m 2 [facility] Glucose [Mass/Vol] 99 mg/dL 70 - 99 mg/dL [facility] Interpretation and review of laboratory results Abnormal [facility] Potassium [Moles/Vol] 5.1 mmol/L 3.6 - 5.1 mmol/L [facility] Sodium [Moles/Vol] 134 mmol/L Low 136 - 145 mmol/L [facility] Urea nitrogen [Mass/Vol] 34 mg/dL High 8 - 20 mg/dL [facility] Urea nitrogen/Creatinine [Mass ratio] 26.6 mg/mg High [facility] Hemogram and platelets WO di fferential panel (Bld)on 01-05-2022 Basophils (Bld) [#/Vol] 0.10 10*3/uL [facility] Basophils/100 WBC (Bld) 0.8 % 0.0 - 2.0 % [facility] Eosinophils (Bld) [#/Vol] 0.29 10*3/uL [facility] Eosinophils/100 WBC (Bld) 2.3 % 0.0 - 7.0 % [facility] Erythrocyte distribution width (RBC) [Ratio] 15.8 % High 11.0 - 14.8 % [facility] Hematocrit (Bld) [Volume fraction] 35.6 % 34.3 [...] 8.0 % 0.0 - 12.0 % [facility] Segmented neutrophils (Bld) [#/Vol] 9.02 10*3/uL High [facility] Segmented neutrophils/100 WBC (Bld) 71.0 % 38.1 - 75.5 % [facility] PT Coag (PPP) [Time]on 01-05 INR Coag (PPP) [Relative time] 1.0 {INR} <=5.0 [facility] Comment on above: The recommended ther apeutic INR range for most cardiac indications is 2.0-3.0 For high intensity therapy (i.e. mechanical heart valves), the recommended range is 2.5-3.5 Interpretation and review of laboratory results Normal [facility] PT Coag (Bld) [Time] 13.0 s [facility] [address] [facility] [employer] Basic metabolic 2000 panelon 01-04-2022 Anion gap [Moles/Vol] 9 mmol/L [facility] [employer] Calcium [Mass/Vol] 8.9 mg/dL 8.9 - 10. 3 mg/dL [facility] Chloride [Moles/Vol] 103 mmol/L 98 - 10 7 mmol/L [facility] CO2 [Moles/Vol] 21 mmol/L Low 22 - 32 mmol/L [facility] Creatinine [Mass/Vol] 1.00 mg/dL 0.60 - 1.30 mg/dL [facility] GFR/1.73 sq M.predicted MDRD (S/P/Bld) [Vol rate/Area] 59 mL/min/{1.73_m2} Low >=60 mL/min/1.73m 2 [facility] Glucose [Mass/Vol] 129 mg/dL High 70 - 99 mg/dL [facility] Interpretation and review of laboratory results Abnormal [facility] Potassium [Moles/Vol] 5.0 mmol/L 3.6 - 5.1 mmol/L [facility] Sodium [Moles/Vol] 133 mmol/L Low 136 - 145 mmol/L [facility] Urea nitrogen [Mass/Vol] 26 mg/dL High 8 - 20 mg/dL [facility] Urea nitrogen/Creatinine [Mass ratio] 26.0 mg/mg High [facility] Hemogram and platelets WO di fferential panel [...] Health WBC (Bld) [#/Vol] 14.6 10*3/uL High [facility] Manual Differential panel (B ld)on 01-04-2022 Interpretation and review of laboratory results Abnormal [facility] Lymphocytes (Bld) [#/Vol] 2.77 10*3/uL [facility] Lymphocytes/100 WBC (Bld) 19.0 % 17.9 - 49.6 % [facility] Monocytes (Bld) [#/Vol] 1.31 10*3/uL High [facility] Monocytes/100 WBC (Bld) 9.0 % 0.0 - 12.0 % [facility] Segmented neutrophils (Bld) [#/Vol] 10.51 10*3/uL High [facility] Segmented neutrophils/100 WBC (Bld) 72.0 % 38.1 - 75.5 % [facility] [employer] PT Coag (PPP) [Time]Ordered By: Hilary Albarran on 01-04-2022 INR Coag (PPP) [Relative time] 0.9 {INR} <=5.0 [facility] Comment on above: The recommended ther apeutic INR range for most cardiac indications is 2.0-3.0 For high intensity therapy (i.e. mechanical heart valves), the recommended range is 2.5-3.5 Interpretation and review of laboratory results Normal [facility] PT Coag (Bld) [Time] 12.6 s [facility] Glucose Auto test strip (Bld ) [Mass/Vol]on 01-03-2022 Glucose [Mass/Vol] 144 mg/dL High 70 - 99 mg/dL [facility] Interpretation and review of laboratory results Abnormal [facility] Covid-19 PCR (CVDTBH)on SARS-CoV-2 (COVID-19) RNA REBECCA+probe Ql (Unsp spec) Not detected Normal NOT DETECTED [facility] Comment on above: Result Comment: When diagnostic [...] for this test is supported by the [place] of Health and Human Service's declaration that [...] used). Performed By: #### C MP #### [facility] [address] [place] [address] Dr. Jeffrey Thomas CBC AUTO DIFFon 12-14-2021 BASO # 0.1 103/ul Normal 0.0-0.1 [facility] Comment on above: Performed By: #### T 4LC #### [facility] [address] [place] [address] Dr. Jeffrey Thomas Basophils/100 WBC (Bld) 1.2 % Normal 0.2-2.0 [facility] Comment on above: Performed By: #### T 4LC #### [facility] [address] [place] [address] Dr. Jeffrey Thomas EO # 0.2 103/ul Normal 0.0-0.7 [facility] Comment on above: Performed By: #### T 4LC #### [facility] [address] [place] [address] Dr. Jeffrey Thomas Eosinophils/100 WBC (Bld) 3.2 % Normal 0.9-7.0 [facility] Comment on above: Performed By: #### T 4LC #### [facility] [address] [place] [address] Dr. Jeffrey Thomas Erythrocyte distribution width (RBC) [Ratio] 15.9 % Critically high 11.0-15.0 [facility] Comment on above: Performed By: #### T 4LC #### [facility] [address] [place] [address] Dr. Jeffrey Thomas Hematocrit (Bld) [Volume fraction] 35.1 % Critically low 36.0-48.0 [facility] Comment on above: Performed By: #### T 4LC #### [facility] [address] [place] [address] Dr. Jeffrey Thomas Hemoglobin (Bld) [Mass/Vol] 10.8 g/dL Critically low 12.0-16.0 [facility] Comment on above: Performed By: #### 4LC #### [facility] [address] [place] [address] Dr. Jeffrey Thomas IG # 0.03 10e3/ul Normal 0.00-0.03 [facility] Comment on above: Performed By: #### 4LC #### [facility] [address] [place] [address] Dr. Jeffrey Thomas IG % 0.4 % Normal 0.0-0.5 [facility] Comment on above: Performed By: #### 4LC #### [facility] [address] [place] [address] Dr. Jeffrey Thomas LYMPH # 2.1 103/ul Normal 1.2-3.8 [facility] Comment on above: Performed By: #### 4LC #### [facility] [address] [place] [address] Dr. Jeffrey Thomas Lymphocytes/100 WBC (Bld) 30.8 % Normal 20.5-60.0 [facility] Comment on above: Performed By: #### 4LC #### [facility] [address] [place] [address] Dr. Jeffrey Thomas MANUAL DIFF REQ NO Normal [facility] Comment on above: Performed By: #### T 4LC #### [facility] [address] [place] [address] Dr. Jeffrey Thomas MCH (RBC) [Entitic mass] 30.3 pg Normal 26.7-34.0 [facility] Comment on above: Performed By: #### T 4LC #### [facility] [address] [place] [address] Dr. Jeffrey Thomas MCHC (RBC) [Mass/Vol] 30.8 g/dL Normal 29.9-35.2 [facility] Comment on above: Performed By: #### T 4LC #### [facility] [address] [place] [address] Dr. Jeffrey Thomas MCV (RBC) [Entitic vol] 98.6 fL Normal 81.0-99.0 [facility] Comment on above: Performed By: #### 4LC #### [facility] [address] [place] [address] Dr. Jeffrey Thomas MONO # 0.5 103/ul Normal 0.3-0.8 [facility] Comment on above: Performed By: #### 4LC #### [facility] [address] [place] [address] Dr. Jeffrey Thomas Monocytes/100 WBC (Bld) 7.5 % Normal 1.7-12.0 [facility] Comment on above: Performed By: #### 4LC #### [facility] [address] [place] [address] Dr. Jeffrey Thomas NEUT # 3.9 103/ul Normal 1.4-6.5 [facility] Comment on above: Performed By: #### 4LC #### [facility] [address] [place] [address] Dr. Jeffrey Thomas Neutrophils/100 WBC (Bld) 56.9 % Normal 43.0-75.0 [facility] Comment on above: Performed By: #### 4LC #### [facility] [address] [place] [address] Dr. Jeffrey Thomas Platelet mean volume (Bld) [Entitic vol] 12.0 fL Normal 9.5-13.5 [facility] Comment on above: Performed By: #### 4LC #### [facility] [address] [place] [address] Dr. Jeffrey Thomas PLT 209 103/ul Normal 150-450 [facility] Comment on above: Performed By: #### 4LC #### [facility] [address] [place] [address] Dr. Jeffrey Thomas RBC 3.56 106/ul Critically low 4.20-5.40 [facility] Comment on above: Performed By: #### 4LC #### [facility] [address] [place] [address] Dr. Jeffrey Thomas WBC 6.8 103/ul Normal 4.0-11.0 [facility] Comment on above: Performed By: #### T 4LC #### [facility] [address] [place] [address] Dr. Jeffrey Thomas PROF 14(COMP METB)on 022 Albumin [Mass/Vol] 2.5 g/dL Critically low 3.4-5.0 [facility] Comment on above: Performed By: #### L ACT #### [facility] [address] [place] [address] Dr. Jeffrey Thomas Albumin/Globulin [Mass ratio] 1.0 {ratio} Normal [facility] Comment on above: Performed By: #### L ACT #### [facility] [address] [place] [address] Dr. Jeffrey Thomas ALP [Catalytic activity/Vol] 94 U/L Normal 46-116 [facility] Comment on above: Performed By: #### L ACT #### [facility] [address] [place] [address] Dr. Jeffrey Thomas ALT [Catalytic activity/Vol] 9 U/L Critically low 14-59 [facility] Comment on above: Performed By: #### L ACT #### [facility] [address] [place] [address] Dr. Jeffrey Thomas Anion gap [Moles/Vol] 11.7 mmol/L Normal [facility] Comment on above: Performed By: #### L ACT #### [facility] [address] [place] [address] Dr. Jeffrey Thomas AST [Catalytic activity/Vol] 6 U/L Critically low 15-37 [facility] Comment on above: Performed By: #### L ACT #### [facility] [address] [place] [address] Dr. Jeffrey Thomas Bilirubin [Mass/Vol] 0.1 mg/dL Critically low 0.2-1.0 [facility] Comment on above: Performed By: #### L ACT #### [facility] [address] [address] [address] Jeffrey Thomas Calcium [Mass/Vol] 8.2 mg/dL Critically low 8.5-10.1 [facility] Comment on above: Performed By: #### L ACT #### [facility] [address] [address] [address] Jeffrey Thomas Chloride [Moles/Vol] 111 mmol/L Critically high 98-107 [facility] Comment on above: Performed By: #### L ACT #### [facility] [address] [address] [address] Jeffrey Thomas CO2 [Moles/Vol] 22.5 mmol/L Normal 21.0-32.0 [facility] Comment on above: Performed By: #### L ACT #### [facility] [address] [place] [address] Dr. Jeffrey Thomas Creatinine [Mass/Vol] 0.87 mg/dL Normal 0.55-1.02 [facility] Comment on above: Performed By: #### L ACT #### [facility] [address] [place] [address] Dr. Jeffrey Thomas EGFR-AF GABONESE >60 Normal >=60 [facility] Comment on above: Performed By: #### L ACT #### [facility] [address] [place] [address] Dr. Jeffrey Thomas EGFR-NON AF GABONESE >60 Normal >=60 [facility] Comment on above: Performed By: #### L ACT #### [facility] [address] [address] [address] Jeffrey Thomas Globulin (S) [Mass/Vol] 2.6 g/dL Normal [facility] Comment on above: Performed By: #### L ACT #### [facility] [address] [place] [address] Dr. Jeffrey Thomas Glucose [Mass/Vol] 111 mg/dL Critically high 74-106 [facility] Comment on above: Performed By: #### L ACT #### [facility] [address] [address] [address] Jeffrey Thomas Potassium [Moles/Vol] 4.2 mmol/L Normal 3.5-5.1 [facility] Comment on above: Performed By: #### L ACT #### [facility] [address] [place] [address] Dr. Jeffrey Thomas Protein [Mass/Vol] 5.1 g/dL Critically low 6.4-8.2 Th [facility] Comment on above: Performed By: #### L ACT #### [facility] [address] [place] [address] Dr. Jeffrey Thomas Sodium [Moles/Vol] 141 mmol/L Normal 136-145 [facility] Comment on above: Performed By: #### L ACT #### [facility] [address] [place] [address] Dr. Jeffrey Thomas Urea nitrogen [Mass/Vol] 31.0 mg/dL Critically high 7.0-18.0 [facility] Comment on above: Performed By: #### L ACT #### [facility] [address] [place] [address] Dr. Jeffrey Thomas Urea nitrogen/Creatinine [Mass ratio] 35.6 mg/mg Normal [facility] Comment on above: Performed By: #### L ACT #### [facility] [address] [place] [address] Dr. Jeffrey Thomas CBC AUTO DIFFon 12-13-2021 BASO # 0.1 103/ul Normal 0.0-0.1 [facility] Comment on above: Performed By: #### L ACT #### [facility] [address] [place] [address] Dr. Jeffrey Thomas Basophils/100 WBC (Bld) 1.3 % Normal 0.2-2.0 [facility] Comment on above: Performed By: #### L ACT #### [facility] [address] [place] [address] Dr. Jeffrey Thomas EO # 0.3 103/ul Normal 0.0-0.7 [facility] Comment on above: Performed By: #### L ACT #### [facility] [address] [place] [address] Dr. Jeffrey Thomas Eosinophils/100 WBC (Bld) 3.8 % Normal 0.9-7.0 [facility] Comment on above: Performed By: #### L ACT #### [facility] [address] [place] [address] Dr. Jeffrey Thomas Erythrocyte distribution width (RBC) [Ratio] 15.7 % Critically high 11.0-15.0 [facility] Comment on above: Performed By: #### L ACT #### [facility] [address] [place] [address] Dr. Jeffrey Thomas Hematocrit (Bld) [Volume fraction] 35.7 % Critically low 36.0-48.0 [facility] Comment on above: Performed By: #### L ACT #### [facility] [address] [place] [address] Dr. Jeffrey Thomas Hemoglobin (Bld) [Mass/Vol] 11.5 g/dL Critically low 12.0-16.0 [facility] Comment on above: Performed By: #### L ACT #### [facility] [address] [place] [address] Dr. Jeffrey Thomas IG # 0.04 10e3/ul Critically high 0.00-0.03 [facility] Comment on above: Performed By: #### L ACT #### [facility] [address] [place] [address] Dr. Jeffrey Thomas IG % 0.6 % Critically high 0.0-0.5 [facility] Comment on above: Performed By: #### L ACT #### [facility] [address] [place] [address] Dr. Jeffrey Thomas LYMPH # 2.0 103/ul Normal 1.2-3.8 [facility] Comment on above: Performed By: #### L ACT #### [facility] [address] [place] [address] Dr. Jeffrey Thomas Lymphocytes/100 WBC (Bld) 28.8 % Normal 20.5-60.0 [facility] Comment on above: Performed By: #### L ACT #### [facility] [address] [place] [address] Dr. Jeffrey Thomas MANUAL DIFF REQ NO Normal [facility] Comment on above: Performed By: #### L ACT #### [facility] [address] [place] [address] Dr. Jeffrey Thomas MCH (RBC) [Entitic mass] 31.6 pg Normal 26.7-34.0 [facility] Comment on above: Performed By: #### L ACT #### [facility] [address] [place] [address] Dr. Jeffrey Thomas MCHC (RBC) [Mass/Vol] 32.2 g/dL Normal 29.9-35.2 [facility] Comment on above: Performed By: #### L ACT #### [facility] [address] [place] [address] Dr. Jeffrey Thomas MCV (RBC) [Entitic vol] 98.1 fL Normal 81.0-99.0 [facility] Comment on above: Performed By: #### L ACT #### [facility] [address] [place] [address] Dr. Jeffrey Thomas MONO # 0.6 103/ul Normal 0.3-0.8 [facility] Comment on above: Performed By: #### L ACT #### [facility] [address] [place] [address] Dr. Jeffrey Thomas Monocytes/100 WBC (Bld) 8.5 % Normal 1.7-12.0 [facility] Comment on above: Performed By: #### L ACT #### [facility] [address] [place] [address] Dr. Jeffrey Thomas NEUT # 3.9 103/ul Normal 1.4-6.5 [facility] Comment on above: Performed By: #### L ACT #### [facility] [address] [place] [address] Dr. Jeffrey Thomas Neutrophils/100 WBC (Bld) 57.0 % Normal 43.0-75.0 [facility] Comment on above: Performed By: #### L ACT #### [facility] [address] [place] [address] Dr. Jeffrey Thomas Platelet mean volume (Bld) [Entitic vol] 11.5 fL Normal 9.5-13.5 [facility] Comment on above: Performed By: #### L ACT #### [facility] [address] [place] [address] Dr. Jeffrey Thomas PLT 199 103/ul Normal 150-450 [facility] Comment on above: Performed By: #### L ACT #### [facility] [address] [address] [address] Jeffrey Thomas RBC 3.64 106/ul Critically low 4.20-5.40 [facility] Comment on above: Performed By: #### L ACT #### [facility] [address] [address] [address] Jeffrey Thomas WBC 6.9 103/ul Normal 4.0-11.0 [facility] Comment on above: Performed By: #### L ACT #### [facility] [address] [place] [address] Dr. Jeffrey Thomas POINT OF CARE GLUCOSEon 12-01 Glucose [Mass/Vol] 85 mg/dL Normal 74-106 [facility] Comment on above: Performed By: #### C MP #### [facility] [address] [place] [address] Dr. Jeffrey Thomas PROF 14(COMP METB)on 022 Albumin [Mass/Vol] 2.7 g/dL Critically low 3.4-5.0 [facility] Comment on above: Performed By: #### A MM #### [facility] [address] [place] [address] Dr. Jeffrey Thomas Albumin/Globulin [Mass ratio] 1.0 {ratio} Normal [facility] Comment on above: Performed By: #### A MM #### [facility] [address] [place] [address] Dr. Jeffrey Thomas ALP [Catalytic activity/Vol] 95 U/L Normal 46-116 [facility] Comment on above: Performed By: #### A MM #### [facility] [address] [place] [address] Dr. Jeffrey Thomas ALT [Catalytic activity/Vol] 11 U/L Critically low 14-59 [facility] Comment on above: Performed By: #### A MM #### [facility] [address] [address] [address] Jeffrey Thomas Anion gap [Moles/Vol] 10.8 mmol/L Normal [facility] Comment on above: Performed By: #### A MM #### [facility] [address] [address] [address] Jeffrey Thomas AST [Catalytic activity/Vol] 14 U/L Critically low 15-37 [facility] Comment on above: Performed By: #### A MM #### [facility] [address] [address] [address] Jeffrey Thomas Bilirubin [Mass/Vol] 0.2 mg/dL Normal 0.2-1.0 [facility] Comment on above: Performed By: #### A MM #### [facility] [address] [address] [address] Jeffrey Thomas Calcium [Mass/Vol] 8.3 mg/dL Critically low 8.5-10.1 [facility] Comment on above: Performed By: #### A MM #### [facility] [address] [address] [address] Jeffrey Thomas Chloride [Moles/Vol] 113 mmol/L Critically high 98-107 [facility] Comment on above: Performed By: #### A MM #### [facility] [address] [address] [address] Jeffrey Thomas CO2 [Moles/Vol] 22.1 mmol/L Normal 21.0-32.0 [facility] Comment on above: Performed By: #### A MM #### [facility] [address] [address] [address] Jeffrey Thomas Creatinine [Mass/Vol] 0.98 mg/dL Normal 0.55-1.02 [facility] Comment on above: Performed By: #### A MM #### [facility] [address] [address] [address] Jeffrey Thomas EGFR-AF GABONESE >60 Normal >=60 [facility] Comment on above: Performed By: #### A MM #### [facility] [address] [address] [address] Jeffrey Thomas EGFR-NON AF GABONESE 57 mL/min/1.73m2 Critically low >=60 [facility] Comment on above: Performed By: #### A MM #### [facility] [address] [address] [address] Jeffrey Thomas Globulin (S) [Mass/Vol] 2.6 g/dL Normal [facility] Comment on above: Performed By: #### A MM #### [facility] [address] [address] [address] Jeffrey Thomas Glucose [Mass/Vol] 102 mg/dL Normal 74-106 [facility] Comment on above: Performed By: #### A MM #### [facility] [facility] [address] [address] [address] Jeffrey Thomas Potassium [Moles/Vol] 3.9 mmol/L Normal 3.5-5.1 [facility] Comment on above: Performed By: #### A MM #### [facility] [address] [address] [address] Jeffrey Thomas Protein [Mass/Vol] 5.3 g/dL Critically low 6.4-8.2 [facility] Comment on above: Performed By: #### A MM #### [facility] [address] [address] [address] Jeffrey Thomas Sodium [Moles/Vol] 142 mmol/L Normal 136-145 [facility] Comment on above: Performed By: #### A MM #### [facility] [address] [address] [address] Jeffrey Thomas Urea nitrogen [Mass/Vol] 26.0 mg/dL Critically high 7.0-18.0 [facility] Comment on above: Performed By: #### A MM #### [facility] [address] [address] [address] Jeffrey Thomas Urea nitrogen/Creatinine [Mass ratio] 26.5 mg/mg Normal [facility] Comment on above: Performed By: #### A MM #### [facility] [address] [place] [address] Dr. Jeffrey Thomas T3, TOTAL (TRIIODOTHYRONINE) on 12-13-2021 T3, TOTAL 72 ng/dL Normal 71-180 [facility] Comment on above: Performed By: #### C MP #### [facility] [address] [place] [address] Dr. Jeffrey Thomas T4 [facility]on 12-13-2021 T4 [Mass/Vol] 5.2 ug/dL Normal 4.5-12.0 [facility] Comment on above: Performed By: #### T 4LC #### [facility] [address] [place] [address] Dr. Jeffrey Thomas AMMONIAon 12-12-2021 Ammonia (P) [Moles/Vol] 10 umol/L Critically low 11-32 [facility] Comment on above: Performed By: #### A MM #### [facility] [address] [place] [address] Dr. Jeffrey Thomas CBC AUTO DIFFon 12-12-2021 BASO # 0.1 103/ul Normal 0.0-0.1 [facility] Comment on above: Performed By: #### T 4LC #### [facility] [address] [place] [address] Dr. Jeffrey Thomas Basophils/100 WBC (Bld) 1.4 % Normal 0.2-2.0 [facility] Comment on above: Performed By: #### T 4LC #### [facility] [address] [place] [address] Dr. Jeffrey Thomas EO # 0.2 103/ul Normal 0.0-0.7 [facility] Comment on above: Performed By: #### T 4LC #### [facility] [address] [place] [address] Dr. Jeffrey Thomas Eosinophils/100 WBC (Bld) 2.6 % Normal 0.9-7.0 [facility] Comment on above: Performed By: #### T 4LC #### [facility] [address] [place] [address] Dr. Jeffrey Thomas Erythrocyte distribution width (RBC) [Ratio] 15.7 % Critically high 11.0-15.0 [facility] Comment on above: Performed By: #### T 4LC #### [facility] [address] [place] [address] Dr. Jeffrey Thomas Hematocrit (Bld) [Volume fraction] 38.4 % Normal 36.0-48.0 [facility] Comment on above: Performed By: #### T 4LC #### [facility] [address] [place] [address] Dr. Jeffrey Thomas Hemoglobin (Bld) [Mass/Vol] 12.2 g/dL Normal 12.0-16.0 [facility] Comment on above: Performed By: #### T 4LC #### [facility] [address] [place] [address] Dr. Jeffrey Thomas IG # 0.04 10e3/ul Critically high 0.00-0.03 [facility] Comment on above: Performed By: #### T 4LC #### [facility] [address] [place] [address] Dr. Jeffrey Thomas IG % 0.5 % Normal 0.0-0.5 [facility] Comment on above: Performed By: #### T 4LC #### [facility] [address] [place] [address] Dr. Jeffrey Thomas LYMPH # 2.2 103/ul Normal 1.2-3.8 [facility] Comment on above: Performed By: #### T 4LC #### [facility] [address] [place] [address] Dr. Jeffrey Thomas Lymphocytes/100 WBC (Bld) 28.0 % Normal 20.5-60.0 [facility] Comment on above: Performed By: #### T 4LC #### [facility] [address] [place] [address] Dr. Jeffrey Thomas MANUAL DIFF REQ NO Normal [facility] Comment on above: Performed By: #### T 4LC #### [facility] [address] [place] [address] Dr. Jeffrey Thomas MCH (RBC) [Entitic mass] 30.9 pg Normal 26.7-34.0 [facility] Comment on above: Performed By: #### T 4LC #### [facility] [address] [place] [address] Dr. Jeffrey Thomas MCHC (RBC) [Mass/Vol] 31.8 g/dL Normal 29.9-35.2 [facility] Comment on above: Performed By: #### T 4LC #### [facility] [address] [place] [address] Dr. Jeffrey Thomas MCV (RBC) [Entitic vol] 97.2 fL Normal 81.0-99.0 [facility] Comment on above: Performed By: #### T 4LC #### [facility] [address] [place] [address] Dr. Jeffrey Thomas MONO # 0.6 103/ul Normal 0.3-0.8 [facility] Comment on above: Performed By: #### T 4LC #### [facility] [address] [place] [address] Dr. Jeffrey Thomas Monocytes/100 WBC (Bld) 7.9 % Normal 1.7-12.0 [facility] Comment on above: Performed By: #### T 4LC #### [facility] [address] [place] [address] Dr. Jeffrey Thomas NEUT # 4.7 103/ul Normal 1.4-6.5 [facility] Comment on above: Performed By: #### T 4LC #### [facility] [address] [place] [address] Dr. Jeffrey Thomas Neutrophils/100 WBC (Bld) 59.6 % Normal 43.0-75.0 [facility] Comment on above: Performed By: #### T 4LC #### [facility] [address] [place] [address] Dr. Jeffrey Thomas Platelet mean volume (Bld) [Entitic vol] 11.7 fL Normal 9.5-13.5 [facility] Comment on above: Performed By: #### T 4LC #### [facility] [address] [place] [address] Dr. Jeffrey Thomas PLT 256 103/ul Normal 150-450 [facility] Comment on above: Performed By: #### T 4LC #### [facility] [address] [place] [address] Dr. Jeffrey Thomas RBC 3.95 106/ul Critically low 4.20-5.40 [facility] Comment on above: Performed By: #### T 4LC #### [facility] [address] [place] [address] Dr. Jeffrey Thomas WBC 7.9 103/ul Normal 4.0-11.0 [facility] Comment on above: Performed By: #### T 4LC #### [facility] [address] [place] [address] Dr. Jeffrey Thomas BASO # 0.1 103/ul Normal 0.0-0.1 [facility] Comment on above: Performed By: #### C MP #### [facility] [address] [place] [address] Dr. Jeffrey Thomas Basophils/100 WBC (Bld) 1.4 % Normal 0.2-2.0 [facility] Comment on above: Performed By: #### C MP #### [facility] [address] [place] [address] Dr. Jeffrey Thomas EO # 0.2 103/ul Normal 0.0-0.7 [facility] Comment on above: Performed By: #### C MP #### [facility] [address] [place] [address] Dr. Jeffrey Thomas Eosinophils/100 WBC (Bld) 2.9 % Normal 0.9-7.0 [facility] Comment on above: Performed By: #### C MP #### [facility] [address] [place] [address] Dr. Jeffrey Thomas Erythrocyte distribution width (RBC) [Ratio] 15.7 % Critically high 11.0-15.0 [facility] Comment on above: Performed By: #### C MP #### [facility] [address] [place] [address] Dr. Jeffrey Thomas Hematocrit (Bld) [Volume fraction] 40.7 % Normal 36.0-48.0 [facility] Comment on above: Performed By: #### C MP #### [facility] [address] [place] [address] Dr. Jeffrey Thomas Hemoglobin (Bld) [Mass/Vol] 12.9 g/dL Normal 12.0-16.0 [facility] Comment on above: Performed By: #### C MP #### [facility] [address] [place] [address] Dr. Jeffrey Thomas IG # 0.02 10e3/ul Normal 0.00-0.03 [facility] Comment on above: Performed By: #### C MP #### [facility] [address] [place] [address] Dr. Jeffrey Thomas IG % 0.3 % Normal 0.0-0.5 [facility] Comment on above: Performed By: #### C MP #### [facility] [address] [place] [address] Dr. Jeffrey Thomas LYMPH # 1.7 103/ul Normal 1.2-3.8 [facility] Comment on above: Performed By: #### C MP #### [facility] [address] [place] [address] Dr. Jeffrey Thomas Lymphocytes/100 WBC (Bld) 28.4 % Normal 20.5-60.0 [facility] Comment on above: Performed By: #### C MP #### [facility] [address] [place] [address] Dr. Jeffrey Thomas MANUAL DIFF REQ NO Normal [facility] Comment on above: Performed By: #### C MP #### [facility] [address] [place] [address] Dr. Jeffrey Thomas MCH (RBC) [Entitic mass] 30.7 pg Normal 26.7-34.0 [facility] Comment on above: Performed By: #### C MP #### [facility] [address] [place] [address] Dr. Jeffrey Thomas MCHC (RBC) [Mass/Vol] 31.7 g/dL Normal 29.9-35.2 [facility] Comment on above: Performed By: #### C MP #### [facility] [address] [address] [address] Jeffrey Thomas MCV (RBC) [Entitic vol] 96.9 fL Normal 81.0-99.0 [facility] Comment on above: Performed By: #### C MP #### [facility] [address] [address] [address] Jeffrey Thomas MONO # 0.5 103/ul Normal 0.3-0.8 [facility] Comment on above: Performed By: #### C MP #### [facility] [address] [address] [address] Jeffrey Thomas Monocytes/100 WBC (Bld) 8.3 % Normal 1.7-12.0 [facility] Comment on above: Performed By: #### C MP #### [facility] [address] [address] [address] Jeffrey Thomas NEUT # 3.5 103/ul Normal 1.4-6.5 [facility] Comment on above: Performed By: #### C MP #### [facility] [address] [address] [address] Jeffrey Thomas Neutrophils/100 WBC (Bld) 58.7 % Normal 43.0-75.0 [facility] Comment on above: Performed By: #### C MP #### [facility] [address] [address] [address] Jeffrey Thomas Platelet mean volume (Bld) [Entitic vol] 11.5 fL Normal 9.5-13.5 [facility] Comment on above: Performed By: #### C MP #### [facility] [address] [address] [address] Jeffrey Thomas PLT 241 103/ul Normal 150-450 [facility] Comment on above: Performed By: #### C MP #### [facility] [address] [address] [address] Jeffrey Thomas RBC 4.20 106/ul Normal 4.20-5.40 [facility] Comment on above: Performed By: #### C MP #### [facility] [address] [address] [address] Jeffrey Thomas WBC 5.9 103/ul Normal 4.0-11.0 [facility] Comment on above: Performed By: #### C MP #### [facility] [address] [address] [address] Jeffrey Thomas BASO # 0.1 103/ul Normal 0.0-0.1 [facility] Comment on above: Performed By: #### A MM #### [facility] [address] [address] [address] Jeffrey Thomas Basophils/100 WBC (Bld) 1.7 % Normal 0.2-2.0 [facility] Comment on above: Performed By: #### A MM #### [facility] [address] [place] [address] Dr. Jeffrey Thomas EO # 0.1 103/ul Normal 0.0-0.7 [facility] Comment on above: Performed By: #### A MM #### [facility] [address] [place] [address] Dr. Jeffrey Thomas Eosinophils/100 WBC (Bld) 1.7 % Normal 0.9-7.0 [facility] Comment on above: Performed By: #### A MM #### [facility] [address] [place] [address] Dr. Jeffrey Thomas Erythrocyte distribution width (RBC) [Ratio] 15.6 % Critically high 11.0-15.0 [facility] Comment on above: Performed By: #### A MM #### [facility] [address] [place] [address] Dr. Jeffrey Thomas Hematocrit (Bld) [Volume fraction] 43.4 % Normal 36.0-48.0 [facility] Comment on above: Performed By: #### A MM #### [facility] [address] [place] [address] Dr. Jeffrey Thomas Hemoglobin (Bld) [Mass/Vol] 14.2 g/dL Normal 12.0-16.0 [facility] Comment on above: Performed By: #### A MM #### [facility] [address] [address] [address] Jeffrey Thomas IG # 0.04 10e3/ul Critically high 0.00-0.03 [facility] Comment on above: Performed By: #### A MM #### [facility] [address] [place] [address] Dr. Jeffrey Thomas IG % 0.6 % Critically high 0.0-0.5 [facility] Comment on above: Performed By: #### A MM #### [facility] [address] [place] [address] Dr. Jeffrey Thomas LYMPH # 2.2 103/ul Normal 1.2-3.8 [facility] Comment on above: Performed By: #### A MM #### [facility] [address] [place] [address] Dr. Jeffrey Thomas Lymphocytes/100 WBC (Bld) 32.7 % Normal 20.5-60.0 [facility] Comment on above: Performed By: #### A MM #### [facility] [address] [place] [address] Dr. Jeffrey Thomas MANUAL DIFF REQ NO Normal [facility] Comment on above: Performed By: #### A MM #### [facility] [address] [place] [address] Dr. Jeffrey Thomas MCH (RBC) [Entitic mass] 31.3 pg Normal 26.7-34.0 [facility] Comment on above: Performed By: #### A MM #### [facility] [address] [place] [address] Dr. Jeffrey Thomas MCHC (RBC) [Mass/Vol] 32.7 g/dL Normal 29.9-35.2 [facility] Comment on above: Performed By: #### A MM #### [facility] [address] [place] [address] Dr. Jeffrey Thomas MCV (RBC) [Entitic vol] 95.8 fL Normal 81.0-99.0 [facility] Comment on above: Performed By: #### A MM #### [facility] [address] [place] [address] Dr. Jeffrey Thomas MONO # 0.7 103/ul Normal 0.3-0.8 [facility] Comment on above: Performed By: #### A MM #### [facility] [address] [place] [address] Dr. Jeffrey Thomas Monocytes/100 WBC (Bld) 9.9 % Normal 1.7-12.0 [facility] Comment on above: Performed By: #### A MM #### [facility] [address] [place] [address] Dr. Jeffrey Thomas NEUT # 3.5 103/ul Normal 1.4-6.5 [facility] Comment on above: Performed By: #### A MM #### [facility] [address] [place] [address] Dr. Jeffrey Thomas Neutrophils/100 WBC (Bld) 53.4 % Normal 43.0-75.0 [facility] Comment on above: Performed By: #### A MM #### [facility] [address] [place] [address] Dr. Jeffrey Thomas Platelet mean volume (Bld) [Entitic vol] 12.1 fL Normal 9.5-13.5 [facility] Comment on above: Performed By: #### A MM #### [facility] [address] [place] [address] Dr. Jeffrey Thomas PLT 307 103/ul Normal 150-450 [facility] Comment on above: Performed By: #### A MM #### [facility] [address] [place] [address] Dr. Jeffrey Thomas RBC 4.53 106/ul Normal 4.20-5.40 [facility] Comment on above: Performed By: #### A MM #### [facility] [address] [place] [address] Dr. Jeffrey Thomas WBC 6.6 103/ul Normal 4.0-11.0 [facility] Comment on above: Performed By: #### A MM #### [facility] [address] [place] [address] Dr. Jeffrey Thomas Covid-19 PCR (CVDTBH)on 12-01 SARS-CoV-2 (COVID-19) RNA REBECCA+probe Ql (Unsp spec) Not detected Normal NOT DETECTED [facility] Comment on above: Result Comment: When diagnostic [...] for this test is supported by the [employer] and Human Service's declaration that [...] used). Performed By: #### C VDTB #### [facility] [address] [place] [address] Dr. Jeffrey Thomas DRUG SCREEN RAPID (URINE)on 12-12-2021 AMP Negative Normal NEGATIVE [facility] Comment on above: Performed By: #### T 4LC #### [facility] [address] [place] [address] Dr. Jeffrey Thomas BAR Negative Normal NEGATIVE [facility] Comment on above: Performed By: #### T 4LC #### [facility] [address] [place] [address] Dr. Jeffrey Thomas BUP Negative Normal NEGATIVE [facility] Comment on above: Performed By: #### T 4LC #### [facility] [address] [place] [address] Dr. Jeffrey Thomas BZO Positive Abnormal NEGATIVE [facility] Comment on above: Performed By: #### T 4LC #### [facility] [address] [place] [address] Dr. Jeffrey Thomas VIKASH Negative Normal NEGATIVE [facility] Comment on above: Performed By: #### T 4LC #### [facility] [address] [place] [address] Dr. Jeffrey Thomas CUT-OFFS SEE BELOW Normal [facility] Comment on above: Result Comment: AMP [...] ng/mL Performed By: #### T 4LC #### [facility] [address] [place] [address] Dr. Jeffrey Thomas DRUG CUT HEADER DRUG CLASS TEST SYSTEM CUT-OFF CONCENTRATIONS ARE FOLLOWS: Normal [facility] Comment on above: Performed By: #### T 4LC #### [facility] [address] [place] [address] Dr. Jeffrey Thomas mAMP Negative Normal NEGATIVE [facility] Comment on above: Performed By: #### T 4LC #### [facility] [address] [place] [address] Dr. Jeffrey Thomas MTD Negative Normal NEGATIVE [facility] Comment on above: Performed By: #### T 4LC #### [facility] [address] [place] [address] Dr. Jeffrey Thomas OPI Negative Normal NEGATIVE [facility] Comment on above: Performed By: #### T 4LC #### [facility] [address] [place] [address] Dr. Jeffrey Thomas OXY Negative Normal NEGATIVE [facility] Comment on above: Performed By: #### T 4LC #### [facility] [address] [place] [address] Dr. Jeffrey Thomas PCP Negative Normal NEGATIVE [facility] Comment on above: Performed By: #### T 4LC #### [facility] [address] [place] [address] Dr. Jeffrey Thomas PPX Negative Normal NEGATIVE [facility] Comment on above: Performed By: #### T 4LC #### [facility] [address] [place] [address] Dr. Jeffrey Thomas TCA Positive Abnormal NEGATIVE [facility] Comment on above: Performed By: #### T 4LC #### [facility] [address] [place] [address] Dr. Jeffrey Thomas THC Negative Normal NEGATIVE [facility] Comment on above: Performed By: #### T 4LC #### [facility] [address] [place] [address] Dr. Jeffrey Thomas AMP Negative Normal NEGATIVE [facility] Comment on above: Performed By: #### C MP #### [facility] [address] [place] [address] Dr. Jeffrey Thomas BAR Negative Normal NEGATIVE [facility] Comment on above: Performed By: #### C MP #### [facility] [address] [place] [address] Dr. Jeffrey Thomas BUP Negative Normal NEGATIVE [facility] Comment on above: Performed By: #### C MP #### [facility] [address] [place] [address] Dr. Jeffrey Thomas BZO Positive Abnormal NEGATIVE [facility] Comment on above: Performed By: #### C MP #### [facility] [address] [place] [address] Dr. Jeffrey Thomas VIKASH Negative Normal NEGATIVE [facility] Comment on above: Performed By: #### C MP #### [facility] [address] [place] [address] Dr. Jeffrey Thomas CUT-OFFS SEE BELOW Normal [facility] Comment on above: Result Comment: AMP [...] ng/mL Performed By: #### C MP #### [facility] [address] [place] [address] Dr. Jeffrey Thomas DRUG CUT HEADER DRUG CLASS TEST SYSTEM CUT-OFF CONCENTRATIONS ARE FOLLOWS: Normal [facility] Comment on above: Performed By: #### C MP #### [facility] [address] [place] [address] Dr. Jeffrey Thomas mAMP Negative Normal NEGATIVE [facility] Comment on above: Performed By: #### C MP #### [facility] [address] [place] [address] Dr. Jeffrey Thomas MTD Negative Normal NEGATIVE [facility] Comment on above: Performed By: #### C MP #### [facility] [address] [place] [address] Dr. Jeffrey Thomas OPI Negative Normal NEGATIVE [facility] Comment on above: Performed By: #### C MP #### [facility] [address] [place] [address] Dr. Jeffrey Thomas OXY Negative Normal NEGATIVE [facility] Comment on above: Performed By: #### C MP #### [facility] [address] [place] [address] Dr. Jeffrey Thomas PCP Negative Normal NEGATIVE [facility] Comment on above: Performed By: #### C MP #### [facility] [address] [place] [address] Dr. Jeffrey Thomas PPX Negative Normal NEGATIVE [facility] Comment on above: Performed By: #### C MP #### [facility] [address] [place] [address] Dr. Jeffrey Thomas TCA Positive Abnormal NEGATIVE [facility] Comment on above: Performed By: #### C MP #### [facility] [address] [place] [address] Dr. Jeffrey Thomas THC Negative Normal NEGATIVE [facility] Comment on above: Performed By: #### C MP #### [facility] [address] [address] [address] Jeffrey Thomas ER URINE PROFILEon 2 Bilirubin Ql (U) SMALL Abnormal NEGATIVE [facility] Comment on above: Performed By: #### C MP #### [facility] [address] [address] [address] Jeffrey Thomas Clarity (U) CLEAR Normal CLEAR [facility] Comment on above: Performed By: #### C MP #### [facility] [address] [address] [address] Jeffrey Thomas Color (U) YELLOW Normal YELLOW [facility] Comment on above: Performed By: #### C MP #### [facility] [address] [place] [address] Dr. Jeffrey HOFFMAN A micrscopic examination will be performed if indicated. Normal [facility] Comment on above: Performed By: #### C MP #### [facility] [address] [address] [address] Jeffrey Thomas Glucose Ql (U) Negative Normal NEGATIVE [facility] Comment on above: Performed By: #### C MP #### [facility] [address] [place] [address] Dr. Jeffrey Thomas Hemoglobin Ql (U) Negative Normal NEGATIVE [facility] Comment on above: Performed By: #### C MP #### [facility] [address] [address] [address] Jeffrey Thomas Ketones Ql (U) Negative Normal NEGATIVE [facility] Comment on above: Performed By: #### C MP #### [facility] [address] [address] [address] Jeffrey Thomas LEUKOCYTES Negative Normal NEGATIVE [facility] Comment on above: Performed By: #### C MP #### [facility] [address] [place] [address] Dr. Jeffrey Thomas Nitrite Ql (U) Negative Normal NEGATIVE [facility] Comment on above: Performed By: #### C MP #### [facility] [address] [place] [address] Dr. Jeffrey Thomas pH (U) 5.0 [pH] Normal 5-9 [facility] Comment on above: Performed By: #### C MP #### [facility] [address] [place] [address] Dr. Jeffrey Thomas SPEC GRAVITY 1.025 Normal 1.005-<=1.02 5 [facility] Comment on above: Performed By: #### C MP #### [facility] [address] [place] [address] Dr. Jeffrey Thomas UA PROTEIN Negative Normal NEGATIVE/ TRACE [facility] Comment on above: Performed By: #### C MP #### [facility] [address] [place] [address] Dr. Jeffrey Thomas UR MICRO IND NOT INDICATED Normal [facility] Comment on above: Performed By: #### C MP #### [facility] [address] [place] [address] Dr. Jeffrey Thomas Urobilinogen Qn (U) 0.2 {Bere'U}/dL Normal 0.2 - 1. 0 [facility] Comment on above: Performed By: #### C MP #### [facility] [address] [place] [address] Dr. Jeffrey Thomas PROF 14(COMP METB)on 022 Albumin [Mass/Vol] 2.9 g/dL Critically low 3.4-5.0 [facility] Comment on above: Performed By: #### C MP #### [facility] [address] [place] [address] Dr. Jeffrey Thomas Albumin/Globulin [Mass ratio] 1.0 {ratio} Normal [facility] Comment on above: Performed By: #### C MP #### [facility] [address] [place] [address] Dr. Jeffrey Thomas ALP [Catalytic activity/Vol] 116 U/L Normal 46-116 [facility] Comment on above: Performed By: #### C MP #### [facility] [address] [place] [address] Dr. Jeffrey Thomas ALT [Catalytic activity/Vol] 12 U/L Critically low 14-59 [facility] Comment on above: Performed By: #### C MP #### [facility] [address] [address] [address] Jeffrey Thomas Anion gap [Moles/Vol] 11.8 mmol/L Normal Th [facility] Comment on above: Performed By: #### C MP #### [facility] [address] [address] [address] Jeffrey Thomas AST [Catalytic activity/Vol] 12 U/L Critically low 15-37 [facility] Comment on above: Performed By: #### C MP #### [facility] [address] [place] [address] Dr. Jeffrey Thomas Bilirubin [Mass/Vol] 0.1 mg/dL Critically low 0.2-1.0 [facility] Comment on above: Performed By: #### C MP #### [facility] [address] [place] [address] Dr. Jeffrey Thomas Calcium [Mass/Vol] 8.2 mg/dL Critically low 8.5-10.1 [facility] Comment on above: Performed By: #### C MP #### [facility] [address] [place] [address] Dr. Jeffrey Thomas Chloride [Moles/Vol] 111 mmol/L Critically high 98-107 [facility] Comment on above: Performed By: #### C MP #### [facility] [address] [place] [address] Dr. Jeffrey Thomas CO2 [Moles/Vol] 20.2 mmol/L Critically low 21.0-32.0 [facility] Comment on above: Performed By: #### C MP #### [facility] [address] [place] [address] Dr. Jeffrey Thomas Creatinine [Mass/Vol] 1.26 mg/dL Critically high 0.55-1.02 [facility] Comment on above: Performed By: #### C MP #### [facility] [address] [place] [address] Dr. Jeffrey Thomas EGFR-AF GABONESE 52 mL/min/1.73m2 Critically low >=60 [facility] Comment on above: Performed By: #### C MP #### [facility] [address] [address] [address] Jeffrey Thomas EGFR-NON AF GABONESE 43 mL/min/1.73m2 Critically low >=60 [facility] Comment on above: Performed By: #### C MP #### [facility] [address] [address] [address] Jeffrey Thomas Globulin (S) [Mass/Vol] 3.0 g/dL Normal [facility] Comment on above: Performed By: #### C MP #### [facility] [address] [address] [address] Jeffrey Thomas Glucose [Mass/Vol] 131 mg/dL Critically high 74-106 T [facility] Comment on above: Performed By: #### C MP #### [facility] [address] [address] [address] Jeffrey Thomas Potassium [Moles/Vol] 4.0 mmol/L Normal 3.5-5.1 [facility] Comment on above: Performed By: #### C MP #### [facility] [address] [address] [address] Jeffrey Thomas Protein [Mass/Vol] 5.9 g/dL Critically low 6.4-8.2 Th [facility] Comment on above: Performed By: #### C MP #### [facility] [address] [address] [address] Jeffrey Thomas Sodium [Moles/Vol] 139 mmol/L Normal 136-145 [facility] Comment on above: Performed By: #### C MP #### [facility] [address] [address] [address] Jeffrey Thomas Urea nitrogen [Mass/Vol] 30.0 mg/dL Critically high 7.0-18.0 [facility] Comment on above: Performed By: #### C MP #### [facility] [address] [address] [address] Jeffrey Thomas Urea nitrogen/Creatinine [Mass ratio] 23.8 mg/mg Normal [facility] Comment on above: Performed By: #### C MP #### [facility] [address] [address] [address] Jeffrey Thomas Albumin [Mass/Vol] 3.1 g/dL Critically low 3.4-5.0 [facility] Comment on above: Performed By: #### C MP #### [facility] [address] [address] [address] Jeffrey Thomas Albumin/Globulin [Mass ratio] 1.0 {ratio} Normal [facility] Comment on above: Performed By: #### C MP #### [facility] [address] [place] [address] Dr. Jeffrey Thomas ALP [Catalytic activity/Vol] 119 U/L Critically high 46-116 [facility] Comment on above: Performed By: #### C MP #### [facility] [address] [place] [address] Dr. Jeffrey Thomas ALT [Catalytic activity/Vol] 13 U/L Critically low 14-59 [facility] Comment on above: Performed By: #### C MP #### [facility] [address] [place] [address] Dr. Jeffrey Thomas Anion gap [Moles/Vol] 11.9 mmol/L Normal [facility] Comment on above: Performed By: #### C MP #### [facility] [address] [place] [address] Dr. Jeffrey Thomas AST [Catalytic activity/Vol] 15 U/L Normal 15-37 [facility] Comment on above: Performed By: #### C MP #### [facility] [address] [place] [address] Dr. Jeffrey Thomas Bilirubin [Mass/Vol] 0.3 mg/dL Normal 0.2-1.0 [facility] Comment on above: Performed By: #### C MP #### [facility] [address] [place] [address] Dr. Jeffrey Thomas Calcium [Mass/Vol] 8.5 mg/dL Normal 8.5-10.1 [facility] Comment on above: Performed By: #### C MP #### [facility] [address] [address] [address] Jeffrey Thomas Chloride [Moles/Vol] 109 mmol/L Critically high 98-107 [facility] Comment on above: Performed By: #### C MP #### [facility] [address] [address] [address] Jeffrey Thomas CO2 [Moles/Vol] 21.9 mmol/L Normal 21.0-32.0 [facility] Comment on above: Performed By: #### C MP #### [facility] [address] [address] [address] Jeffrey Thomas Creatinine [Mass/Vol] 1.18 mg/dL Critically high 0.55-1.02 [facility] Comment on above: Performed By: #### C MP #### [facility] [address] [address] [address] Jeffrey Thomas EGFR-AF GABONESE 56 mL/min/1.73m2 Critically low >=60 [facility] Comment on above: Performed By: #### C MP #### [facility] [address] [address] [address] Jeffrey Thomas EGFR-NON AF GABONESE 46 mL/min/1.73m2 Critically low >=60 [facility] Comment on above: Performed By: #### C MP #### [facility] [address] [address] [address] Jeffrey Thomas Globulin (S) [Mass/Vol] 3.1 g/dL Normal [facility] Comment on above: Performed By: #### C MP #### [facility] [address] [address] [address] Jeffrey Thomas Glucose [Mass/Vol] 94 mg/dL Normal 74-106 [facility] Comment on above: Performed By: #### C MP #### [facility] [address] [address] [address] Jeffrey Thomas Potassium [Moles/Vol] 3.8 mmol/L Normal 3.5-5.1 [facility] Comment on above: Performed By: #### C MP #### [facility] [address] [address] [address] Jeffrey Thomas Protein [Mass/Vol] 6.2 g/dL Critically low 6.4-8.2 Th [facility] Comment on above: Performed By: #### C MP #### [facility] [address] [address] [address] Jeffrey Thomas Sodium [Moles/Vol] 139 mmol/L Normal 136-145 [facility] Comment on above: Performed By: #### C MP #### [facility] [address] [address] [address] Jeffrey Thomas Urea nitrogen [Mass/Vol] 27.0 mg/dL Critically high 7.0-18.0 [facility] Comment on above: Performed By: #### C MP #### [facility] [address] [address] [address] Jeffrey Thomas Urea nitrogen/Creatinine [Mass ratio] 22.9 mg/mg Normal [facility] Comment on above: Performed By: #### C MP #### [facility] [address] [address] [address] Jeffrey Thomas Albumin [Mass/Vol] 3.3 g/dL Critically low 3.4-5.0 [facility] Comment on above: Performed By: #### A MM #### [facility] [address] [address] [address] Jeffrey Thomas Albumin/Globulin [Mass ratio] 1.0 {ratio} Normal [facility] Comment on above: Performed By: #### A MM #### [facility] [address] [address] [address] Jeffrey Thomas ALP [Catalytic activity/Vol] 127 U/L Critically high 46-116 [facility] Comment on above: Performed By: #### A MM #### [facility] [address] [address] [address] Jeffrey Thomas ALT [Catalytic activity/Vol] 10 U/L Critically low 14-59 [facility] Comment on above: Performed By: #### A MM #### [facility] [address] [address] [address] Jeffrey Thomas Anion gap [Moles/Vol] 12.9 mmol/L Normal Th [facility] Comment on above: Performed By: #### A MM #### [facility] [address] [place] [address] Dr. Jeffrey Thomas AST [Catalytic activity/Vol] 20 U/L Normal 15-37 [facility] Comment on above: Performed By: #### A MM #### [facility] [address] [address] [address] Jeffrey Thomas Bilirubin [Mass/Vol] 0.3 mg/dL Normal 0.2-1.0 [facility] Comment on above: Performed By: #### A MM #### [facility] [address] [place] [address] Dr. Jeffrey Thomas Calcium [Mass/Vol] 8.9 mg/dL Normal 8.5-10.1 [facility] Comment on above: Performed By: #### A MM #### [facility] [address] [place] [address] Dr. Jeffrey Thomas Chloride [Moles/Vol] 106 mmol/L Normal 98-107 [facility] Comment on above: Performed By: #### A MM #### [facility] [address] [place] [address] Dr. Jeffrey Thomas CO2 [Moles/Vol] 21.8 mmol/L Normal 21.0-32.0 [facility] Comment on above: Performed By: #### A MM #### [facility] [address] [place] [address] Dr. Jeffrey Thomas Creatinine [Mass/Vol] 1.54 mg/dL Critically high 0.55-1.02 [facility] Comment on above: Performed By: #### A MM #### [facility] [address] [place] [address] Dr. Jeffrey Thomas EGFR-AF GABONESE 41 mL/min/1.73m2 Critically low >=60 [facility] Comment on above: Performed By: #### A MM #### [facility] [address] [place] [address] Dr. Jeffrey Thomas EGFR-NON AF GABONESE 34 mL/min/1.73m2 Critically low >=60 [facility] Comment on above: Performed By: #### A MM #### [facility] [address] [address] [address] Jeffrey Thomas Globulin (S) [Mass/Vol] 3.4 g/dL Normal [facility] Comment on above: Performed By: #### A MM #### [facility] [address] [address] [address] Jeffrey Thomas Glucose [Mass/Vol] 139 mg/dL Critically high 74-106 T [facility] Comment on above: Performed By: #### A MM #### [facility] [address] [place] [address] Dr. Jeffrey Thomas Potassium [Moles/Vol] 3.7 mmol/L Normal 3.5-5.1 [facility] Comment on above: Performed By: #### A MM #### [facility] [address] [place] [address] Dr. Jeffrey Thomas Protein [Mass/Vol] 6.7 g/dL Normal 6.4-8.2 [facility] Comment on above: Performed By: #### A MM #### [facility] [address] [place] [address] Dr. Jeffrey Thomas Sodium [Moles/Vol] 139 mmol/L Normal 136-145 [facility] Comment on above: Performed By: #### A MM #### [facility] [address] [address] [address] Jeffrey Thomas Urea nitrogen [Mass/Vol] 31.0 mg/dL Critically high 7.0-18.0 [facility] Comment on above: Performed By: #### A MM #### [facility] [address] [place] [address] Dr. Jeffrey Thomas Urea nitrogen/Creatinine [Mass ratio] 20.1 mg/mg Normal [facility] Comment on above: Performed By: #### A MM #### [facility] [address] [place] [address] Dr. Jeffrey Thomas PROTIMEon 12-12-2021 INR Coag (PPP) [Relative time] 1.13 {INR} Normal [facility] Comment on above: Performed By: #### T 4LC #### [facility] [address] [place] [address] Dr. Jeffrey Thomas INR GUIDELINES SEE BELOW Normal [facility] Comment on above: Result Comment: MERARI RED INR: 2.0 - 3.0 CONDITIONS NOT LISTED BELOW 2.5 - 3.5 FOR PROSTHETIC HEART VALVE REPLACEMENT 2.5 - 3.5 RECURRENT THROMBOSIS Performed By: #### T 4LC #### [facility] [address] [address] [address] Jeffrey Thomas PT Coag (PPP) [Time] 12.1 s Critically high 9.0-11.6 [facility] Comment on above: Performed By: #### T 4LC #### [facility] [address] [place] [address] Dr. Jeffrey Thomas TSHon 12-12-2021 TSH 0.729 uIU/mL Normal 0.358-3.740 [facility] Comment on above: Performed By: #### C MP #### [facility] [address] [place] [address] Dr. Jeffrey Thomas XR CHEST 1 Von [...] by: GUILLE RAY Date: 2021-12-11 23:48 Normal [facility] PT Coag (PPP) [Time]on 01-08 INR Coag (PPP) [Relative time] 1.5 {INR} <=5.0 [facility] Comment on above: The recommended ther apeutic INR range for most cardiac indications is 2.0-3.0 For high intensity therapy (i.e. mechanical heart valves), the recommended range is 2.5-3.5 Interpretation and review of laboratory results Abnormal [facility] PT Coag (Bld) [Time] 18.1 s High [facility] Basic metabolic 2000 panelon 01-07-2021 Calcium [Mass/Vol] 8.8 mg/dL Normal 8.5-10.6 [facility] Chloride [Moles/Vol] 107 mmol/L Normal 98-107 [facility] CO2 [Moles/Vol] 25 mmol/L Normal 21-32 [facility] Creatinine [Mass/Vol] 1.87 mg/dL High 0.55-1.02 [facility] Glucose [Mass/Vol] 96 mg/dL Normal 70-99 [facility] Potassium [Moles/Vol] 4.5 mmol/L Normal 3.5-5.1 [facility] Sodium [Moles/Vol] 141 mmol/L Normal 136-145 [facility] Urea nitrogen (BldV) [Mass/Vol] 27 mg/dL High 7.0-18.0 [facility] Urea nitrogen/Creatinine [Mass ratio] 14 mg/mg Normal [facility] Coronavirus (COVID-19/SARS-C oV-2) RAPIDon 01-07-2021 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 N Normal [facility] First test N Normal [facility] ICU N Normal [facility] Illness or injury onset date and time Normal [facility] Patient was hospitalized because of this condition Y Normal [facility] status N Normal [facility] Resides in congregate care setting N Normal [facility] SARS-CoV-2 (COVID-19) RNA REBECCA+probe Ql (Resp) Not detected Normal NDET [facility] Comment on above: Result Comment: This test was performed via the [employer] NOW COVID 19 assay and has been authorized by FDA under an Emergency Use Authorization (EUA). The assay is validated for nasopharyngeal (WARP DOFFER), nasal, and oropharyngeal (OP) direct swabs. The [...] Symptomatic as defined by CDC N Normal [facility] Gentamicin Trough Levelon Gentamicin trough [Mass/Vol] 1.0 mg/L Normal [facility] Comment on above: Result Comment: Refe rence range: 0.0 to 2.0 Unit: UG/ML PT Coag (PPP) [Time]on 01-07 INR Coag (Bld) [Relative time] 1.3 {INR} Normal [facility] Comment on above: Order Comment: Preho [...] Coag (PPP) [Time] 15.7 s High 11.9-14.6 [facility] Comment on above: Order Comment: Preho spitalization had reported chronic use of Coumadin which was held for surgery. Tobramycin random [Moles/Vol ]on 01-07-2021 Tobramycin [Mass/Vol] SEE SEPARATE REPORT Normal 0.5-1 .5 [facility] Comment on above: Result Comment: SEE NOTES REVIEW TAB FOR RESULTS Basic metabolic 2000 panelon 01-06-2021 Calcium [Mass/Vol] 8.6 mg/dL Normal 8.5-10.6 [facility] Chloride [Moles/Vol] 107 mmol/L Normal 98-107 [facility] CO2 [Moles/Vol] 24 mmol/L Normal 21-32 [facility] Creatinine [Mass/Vol] 1.82 mg/dL High 0.55-1.02 [facility] Glucose [Mass/Vol] 87 mg/dL Normal 70-99 [facility] Potassium [Moles/Vol] 4.8 mmol/L Normal 3.5-5.1 [facility] Sodium [Moles/Vol] 140 mmol/L Normal 136-145 [facility] Urea nitrogen (BldV) [Mass/Vol] 30 mg/dL High 7.0-18.0 [facility] Urea nitrogen/Creatinine [Mass ratio] 16 mg/mg Normal [facility] Hematocriton 01-06-2021 Hematocrit (Bld) [Volume fraction] 28.9 % Low 34.0-50.0 [facility] Hemoglobinon 01-06-2021 Hemoglobin (Bld) [Mass/Vol] 9.4 g/dL Low 11.5-17.0 [facility] Histopathology Requeston Relevant diagnostic tests/laboratory data Narrative SPECIMEN DESCRIPTION 1 LEFT KNEE TISSUE RESULT SEE SEPARATE REPORT RESULT SEE NOTES REVIEW TAB FOR RESULTS ROUTINE LAB Report Date: 01/06/2021 09:09:05 Collect Date: 01/03/2021 12:44:00 Normal [facility] PT Coag (PPP) [Time]on 01-06 INR Coag (Bld) [Relative time] 1.1 {INR} Normal [facility] Comment on above: Order Comment: Preho [...] (PPP) [Time] 14.2 s Normal 11.9-14.6 [facility] Comment on above: Order Comment: Preho spitalization had reported chronic use of Coumadin which was held for surgery. Basic metabolic 2000 panelon 01-05-2021 Calcium [Mass/Vol] 8.1 mg/dL Low 8.5-10.6 [facility] Chloride [Moles/Vol] 108 mmol/L High 98-107 [facility] CO2 [Moles/Vol] 27 mmol/L Normal 21-32 [facility] Creatinine [Mass/Vol] 2.05 mg/dL High 0.55-1.02 [facility] Glucose [Mass/Vol] 91 mg/dL Normal 70-99 [facility] Potassium [Moles/Vol] 4.7 mmol/L Normal 3.5-5.1 [facility] Sodium [Moles/Vol] 141 mmol/L Normal 136-145 [facility] Urea nitrogen (BldV) [Mass/Vol] 36 mg/dL High 7.0-18.0 [facility] Urea nitrogen/Creatinine [Mass ratio] 18 mg/mg Normal [facility] CBC W Auto Differential pane l (Bld)on 01-05-2021 Basophils (Bld) [#/Vol] 0.1 thou/mcL Normal 0.0-0.2 [facility] Basophils/100 WBC (Bld) 0.9 % Normal 0-3 [facility] Differential cell count method Nom (Bld) AUTOMATED DIFFERENTIAL Normal [facility] Eosinophils (Bld) [#/Vol] 0.2 thou/mcL Normal 0.0-0.4 [facility] Eosinophils/100 WBC (Bld) 2.2 % Normal 0-7 [facility] Erythrocyte distribution width (RBC) [Entitic vol] 16.0 % High 11.7-15.0 [facility] Hematocrit (Bld) [Volume fraction] 21.4 % Low 34.0-50.0 [facility] Hemoglobin (Bld) [Mass/Vol] 6.8 g/dL Off scale low 11.5-17.0 [facility] Comment on above: Result Comment: RESU LTS VERIFIED AND CALLED TO/READ BACK BY ALFONSO HILARIO 01.05.21 @0559.BA Lymphocytes (Bld) [#/Vol] 0.9 thou/mcL Normal 0.7-4.5 [facility] Lymphocytes/100 WBC (Bld) 12.7 % Low 14-46 [facility] MCH (RBC) [Entitic mass] 27.2 Picograms Normal 27.0-34.0 [facility] MCHC (RBC) [Mass/Vol] 31.8 g/dL Low 32.0-36.0 [facility] MCV (RBC) [Entitic vol] 85.5 fL Normal 80-98 [facility] Monocytes (Bld) [#/Vol] 0.6 thou/mcL Normal 0.1-1.0 [facility] Monocytes/100 WBC (Bld) 8.1 % Normal 4-13 [facility] Neutrophils (Bld) [#/Vol] 5.7 thou/mcL Normal 1.5-7.8 [facility] Neutrophils/100 WBC (Bld) 76.1 % High 40-74 [facility] Platelet mean volume (Bld) [Entitic vol] 10.5 fL Normal 7.5-11.2 [facility] Platelets (Bld) [#/Vol] 141 thou/mcL Normal 140-415 [facility] RBC (Bld) [#/Vol] 2.50 x(10)6/mcL Low 3.80-5.60 Mo [facility] WBC (Bld) [#/Vol] 7.5 thou/mcL Normal 4.0-10.5 [facility] Gentamicin Trough Levelon Gentamicin trough [Mass/Vol] 3.9 mg/L Critically high [facility] Comment on above: Result Comment: Refe michelle range: 0.0 to 2.0 Unit: UG/ML (NOTE) Critical value(s) on tests gentt called to and read-back by clementine nuñez at location [facility] by vinnie time called _01/05/21 12:20 Hematocriton 01-05-2021 Hematocrit (Bld) [Volume fraction] 27.2 % Low 34.0-50.0 [facility] Hemoglobinon 01-05-2021 Hemoglobin (Bld) [Mass/Vol] 8.8 g/dL Low 11.5-17.0 [facility] PT Coag (PPP) [Time]on 01-05 INR Coag (Bld) [Relative time] 1.1 {INR} Normal [facility] Comment on above: Order Comment: Preho [...] Pathology studyon 01-05-2021 Case report TRINITY GODINEZ [id number] YRS F [id number] /BD [id number] ORDERING PHYSICIAN: CALOS SMITH [...] cut surface is rogers-pink, soft and homogeneous. Requirements Engineer sections are submitted in block A1. (RS/1C/MS/RT) Gross examination was performed at [facility]. AJB:MEI 01/04/21 By: LICHA ZEPEDA M.D. (Electronic Signature) MICROSCOPIC: The technical component was performed at [facility], [address] [place] [address]. Microscopic examination was performed. Case resulted at [facility]. DIAGNOSIS: Left knee tissue, revision arthroplasty: -DENSE FIBROUS TISSUE WITH PATCHY CHRONIC INFLAMMATION, FOREIGN BODY GIANT CELL REACTION, AND OSSEOUS METAPLASIA. NOTE: Perivascular lymphocytic inflammation is mild and patchy. JH2:JH2:JH21 END OF REPORT [facility] Comment on above: END OF REPORT [facility] Prothrombin Timeon PT Coag (PPP) [Time] 14.5 s Normal 11.9-14.6 [facility] Comment on above: Order Comment: Preho spitalization had reported chronic use of Coumadin which was held for surgery. Rh Confirm Nom (Bld)on 01-05 ABO group Nom (Bld) A Normal [facility] Rh Nom (Bld) Positive Normal [facility] Tobramycin random [Moles/Vol ]on 01-05-2021 Tobramycin [Mass/Vol] SEE SEPARATE REPORT Normal 0.5-1 .5 [facility] Comment on above: Result Comment: SEE NOTES REVIEW TAB FOR RESULTS Vancomycin [Moles/Vol]on Vancomycin random [Mass/Vol] <3.5 Off scale low 10.0-50.0 [facility] Basic metabolic 2000 panelon 01-04-2021 Calcium [Mass/Vol] 8.5 mg/dL Normal 8.5-10.6 [facility] Chloride [Moles/Vol] 104 mmol/L Normal 98-107 [facility] CO2 [Moles/Vol] 26 mmol/L Normal 21-32 [facility] Creatinine [Mass/Vol] 2.32 mg/dL High 0.55-1.02 [facility] Glucose [Mass/Vol] 90 mg/dL Normal 70-99 [facility] Potassium [Moles/Vol] 5.7 mmol/L Critically high 3.5-5.1 [facility] Comment on above: Result Comment: RESU LTS VERIFIED AND CALLED TO/READ BACK BY ABRAM MCQUEEN 10..21 @ 0640. Sodium [Moles/Vol] 138 mmol/L Normal 136-145 [facility] Urea nitrogen (BldV) [Mass/Vol] 45 mg/dL High 7.0-18.0 [facility] Urea nitrogen/Creatinine [Mass ratio] 19 mg/mg Normal [facility] CBC W Auto Differential pane l (Bld)on 01-04-2021 Basophils (Bld) [#/Vol] 0.0 thou/mcL Normal 0.0-0.2 [facility] Basophils/100 WBC (Bld) 0.3 % Normal 0-3 [facility] Differential cell count method Nom (Bld) AUTOMATED DIFFERENTIAL Normal [facility] Eosinophils (Bld) [#/Vol] 0.0 thou/mcL Normal 0.0-0.4 [facility] Eosinophils/100 WBC (Bld) 0.2 % Normal 0-7 [facility] Erythrocyte distribution width (RBC) [Entitic vol] 15.5 % High 11.7-15.0 [facility] Hematocrit (Bld) [Volume fraction] 23.5 % Low 34.0-50.0 [facility] Hemoglobin (Bld) [Mass/Vol] 7.5 g/dL Low 11.5-17.0 [facility] Lymphocytes (Bld) [#/Vol] 1.0 thou/mcL Normal 0.7-4.5 [facility] Lymphocytes/100 WBC (Bld) 13.3 % Low 14-46 [facility] MCH (RBC) [Entitic mass] 27.4 Picograms Normal 27.0-34.0 [facility] MCHC (RBC) [Mass/Vol] 32.0 g/dL Normal 32.0-36.0 [facility] MCV (RBC) [Entitic vol] 85.5 fL Normal 80-98 [facility] Monocytes (Bld) [#/Vol] 0.6 thou/mcL Normal 0.1-1.0 [facility] Monocytes/100 WBC (Bld) 7.5 % Normal 4-13 [facility] Neutrophils (Bld) [#/Vol] 5.8 thou/mcL Normal 1.5-7.8 [facility] Neutrophils/100 WBC (Bld) 78.7 % High 40-74 [facility] Platelet mean volume (Bld) [Entitic vol] 10.5 fL Normal 7.5-11.2 [facility] Platelets (Bld) [#/Vol] 167 thou/mcL Normal 140-415 [facility] RBC (Bld) [#/Vol] 2.75 x(10)6/mcL Low 3.80-5.60 Mo [facility] WBC (Bld) [#/Vol] 7.3 thou/mcL Normal 4.0-10.5 [facility] PT Coag (PPP) [Time]on 01-04 INR Coag (Bld) [Relative time] 1.0 {INR} Normal [facility] Comment on above: Order Comment: Preho [...] Coag (PPP) [Time] 13.6 s Normal 11.9-14.6 [facility] Comment on above: Order Comment: Preho [...] mid left lung, likely atelectasis or scarring. [facility] thanks you for the opportunity to care for your patient. Workstation ID: [id number] - [id number] FINAL REPORT Dictated By: Garo Albarado MD 01/04/2021 11:41 Assigned Physician: Garo Albarado MD Reviewed and Electronically Signed By: Garo Albarado MD 01/04/2021 11:45 Transcribed by: [facility] 01/04/2021 11:41 Technologist: [facility] Garo Albarado MD - 01/08/2021 EXAMINATION TYPE: [...] Transcribed by: STEW 01/04/2021 11:41 Technologist: RAQUEL [facility] Study observation (narrative) [facility] XR CHEST 1 VIEWOrdered By: Austyn Albarado on 01-04-2021 [facility] Work Phone: XR Chest 1 Viewon 01-04-2021 [...] by: STEW 01/04/2021 11:41 Technologist: RAQUEL Normal [facility] Blood type and Indirect anti body screen panel (Bld)on 01-03-2021 Blood group antibody screen Ql Negative Normal NEG [facility] Rh Nom (Bld) Positive Normal [facility] Cell Count Body Fluidon Cell count panel (Body fld) COLOR, FLUID RED Normal [facility] Culture Aerobicon 01-03-2021 Bacteria identified Aer cx Nom (Unsp spec) [facility] Microbiology PROCEDURE: Culture Aerobic SOURCE: Tissue BODY [...] NO EPITHELIALS SEEN, NO ORGANISMS SEEN Normal [facility] Comment on above: Performed By: #### 6 34-6 ####[address] Bacteria identified Aer cx Nom (Unsp spec) [facility] Microbiology PROCEDURE: Culture Aerobic SOURCE: Tissue BODY [...] NO EPITHELIALS SEEN, NO ORGANISMS SEEN Normal [facility] Comment on above: Performed By: #### 6 34-6 ####[address] Bacteria identified Aer cx Nom (Unsp spec) [facility] Microbiology PROCEDURE: Culture Aerobic SOURCE: Tissue BODY [...] NO EPITHELIALS SEEN, NO ORGANISMS SEEN Normal [facility] Comment on above: Performed By: #### 6 34-6 ####[address] Bacteria identified Aer cx Nom (Unsp spec) [facility] Microbiology PROCEDURE: Culture Aerobic SOURCE: Tissue BODY [...] NO EPITHELIALS SEEN, NO ORGANISMS SEEN Normal [facility] Comment on above: Performed By: #### 6 34-6 ####[address] Culture Anaerobicon 01-04-20 21 Bacteria identified Anaer cx Nom (Unsp spec) [facility] Microbiology PROCEDURE: Culture Anaerobic SOURCE: Tissue BODY [...] 23:34 EDT CONTRIBUTOR_SYSTEM, CO_PN CULTURE IN PROGRESS [facility] Comment on above: Performed By: #### 6 35-3 ####[address] Bacteria identified Anaer cx Nom (Unsp spec) [facility] Microbiology PROCEDURE: Culture Anaerobic SOURCE: Tissue BODY [...] 23:34 EDT CONTRIBUTOR_SYSTEM, CO_PN CULTURE IN PROGRESS [facility] Comment on above: Performed By: #### 6 35-3 ####[address] Bacteria identified Anaer cx Nom (Unsp spec) [facility] Microbiology PROCEDURE: Culture Anaerobic SOURCE: Tissue BODY [...] 23:34 EDT CONTRIBUTOR_SYSTEM, CO_PN CULTURE IN PROGRESS [facility] Comment on above: Performed By: #### 6 35-3 ####[address] Bacteria identified Anaer cx Nom (Unsp spec) [facility] Microbiology PROCEDURE: Culture Anaerobic SOURCE: Tissue BODY [...] 23:34 EDT CONTRIBUTOR_SYSTEM, CO_PN CULTURE IN PROGRESS [facility] Comment on above: Performed By: #### 6 35-3 ####[address] Bacteria identified Anaer cx Nom (Unsp spec) [facility] Microbiology PROCEDURE: Culture Anaerobic SOURCE: Joint Fl [...] 22:43 EDT CONTRIBUTOR_SYSTEM, CO_PN CULTURE IN PROGRESS [facility] Comment on above: Performed By: #### 6 35-3 ####[address] [place], [place] Culture Funguson 01-03-2021 Fungus identified Cx Nom (Unsp spec) [facility] Microbiology PROCEDURE: Culture Fungus SOURCE: Tissue BODY [...] CULTURE WILL BE HELD FOR 1-[address] [facility] Comment on above: Performed By: #### 5 80-1 ####[address] Fungus identified Cx Nom (Unsp spec) [facility] Microbiology PROCEDURE: Culture Fungus SOURCE: Tissue BODY [...] CULTURE WILL BE HELD FOR 1-[address] [facility] Comment on above: Performed By: #### 5 80-1 ####[address] [place], [place] Fungus identified Cx Nom (Unsp spec) [facility] Microbiology PROCEDURE: Culture Fungus SOURCE: Tissue BODY [...] CULTURE WILL BE HELD FOR 1-[address] [facility] Comment on above: Performed By: #### 5 80-1 ####[address] [place], [place] Fungus identified Cx Nom (Unsp spec) [facility] Microbiology PROCEDURE: Culture Fungus SOURCE: Tissue BODY [...] CULTURE WILL BE HELD FOR 1-[address] [facility] Comment on above: Performed By: #### 5 80-1 ####[address] [place], [place] Fungus identified Cx Nom (Unsp spec) [facility] Microbiology PROCEDURE: Culture Fungus SOURCE: Joint Fl [...] WILL BE HELD FOR 1-4 WEEKS Normal [facility] Comment on above: Performed By: #### 5 80-1 ####[facility] [address] [place], [place] Hematocriton 01-03-2021 Hematocrit (Bld) [Volume fraction] 31.6 % Low 34.0-50.0 [facility] Hemoglobinon 01-03-2021 Hemoglobin (Bld) [Mass/Vol] 10.4 g/dL Low 11.5-17.0 [facility] OR Nursingon 01-03-2021 OR Nursing Normal [facility] PACU I Nursingon 01-03-2021 PACU I Nursing CO NA PACU I Nursing Record Summary Primary Physician: Calos Smith Jr, MD Finalized Date/Time: 01/03/21 15:55:58 Pt. Name: TRINITY GODINEZ/Sex: 1955 Female Med Rec #: [id number] Physician: Calos Smith Jr, MD Financial #: [id number] Pt. Type: I Room/Bed: / Admit/Disch: 01/03/21 09:09:00 - Institution: [facility] NA OR Main PACU I Case Times [...] By: Taryn Leonard RN 01/03/21 15:55 Normal [facility] PT Coag (PPP) [Time]on 01-03 INR Coag (Bld) [Relative time] 1.1 {INR} Normal [facility] Comment on above: Result Comment: DHARMESHI [...] Austyn Viveros/Sex: 1955 Female Med Rec #: [id number] Physician: Calos Smith Jr, MD Financial #: [id number] Pt. Type: I Room/Bed: / Admit/Disch: 01/03/21 09:09:00 - Institution: [place] NA OR PreOp Case Times Entry 1 PreOp Case Times In Room Time 01/03/21 09:34:00 Out Room Time 01/03/21 11:38:00 Last Modified By: Zoay Hinson RN, I 01/03/21 12:12:43 [facility] NA OR PreOp Case Attendees Entry 1 Case Attendee Lety Tinoco RN Role Performed RN Last Modified By: Lety Tinoco RN 01/03/21 10:14:05 Finalized By: Zoya Hinson RN, I Document Signatures Signed By: Zoya Hinson RN, I 01/03/21 12:12 Normal [facility] Prothrombin Timeon 1 PT Coag (PPP) [Time] 13.7 s Normal 11.9-14.6 [facility] t [facility] Surgical Pathology Final Rep tom 01-03-2021 Pathology study TRINITY GODINEZ [id number] YRS F [id number] /BD [id number] ORDERING PHYSICIAN: CALOS SMITH [...] cut surface is rogers-pink, soft and homogeneous. Requirements Engineer sections are submitted in block A1. (RS/1C/MS/RT) Gross examination was performed at [facility]. AJB:MEI 01/04/21 By: LICHA ZEPEDA M.D. (Electronic Signature) MICROSCOPIC: The technical component was performed at [facility], [address] [place] [address]. Microscopic examination was performed. Case resulted at [facility]. DIAGNOSIS: Left knee tissue, revision arthroplasty: -DENSE FIBROUS TISSUE WITH PATCHY CHRONIC INFLAMMATION, FOREIGN BODY GIANT CELL REACTION, AND OSSEOUS METAPLASIA. NOTE: Perivascular lymphocytic inflammation is mild and patchy. JH2:JH2:JH21 END OF REPORT END OF REPORT Normal [facility] XR KNEE 1-2 VIEWS LTon 01-03 [...] Kerri Reyna MD 01/03/2021 15:53 Transcribed by: [facility] 01/03/2021 15:49 Technologist: EILEEN [facility] Study observation (narrative) [facility] XR KNEE 1-2 VIEWS LTOrdered By: Kerri Reyna on 01-03-2021 [employer] Phone: XR Knee 1-2 Views LTon 01-03 [...] Left knee arthroplasty revision as detailed above. [facility] thanks you for the opportunity to care for your patient. Workstation ID: [id number] - [id number] FINAL REPORT Dictated By: Kerri Reyna MD 01/03/2021 15:49 Assigned Physician: Kerri Reyna MD Reviewed and Electronically Signed By: Kerri Reyna MD 01/03/2021 15:53 Transcribed by: STEW 01/03/2021 15:49 Technologist: DT Normal [facility] aPTT Coag (Bld) [Time]on aPTT Coag (PPP) [Time] 25.0 s Normal 23.2-34.6 [facility] Histopathology Requeston Relevant diagnostic tests/laboratory data Narrative SPECIMEN DESCRIPTION 1 LEFT KNEE RESULT SEE SEPARATE REPORT RESULT SEE NOTES REVIEW TAB FOR RESULTS ROUTINE LAB Report Date: 11/24/2020 05:51:32 Collect Date: 11/19/2020 13:56:00 Normal [facility] Basic metabolic 2000 panelon 11-22-2020 Calcium [Mass/Vol] 8.0 mg/dL Low 8.5-10.6 [facility] Chloride [Moles/Vol] 103 mmol/L Normal 98-107 [facility] CO2 [Moles/Vol] 29 mmol/L Normal 21-32 [facility] Creatinine [Mass/Vol] 1.09 mg/dL High 0.55-1.02 [facility] Glucose [Mass/Vol] 93 mg/dL Normal 70-99 [facility] Potassium [Moles/Vol] 4.4 mmol/L Normal 3.5-5.1 [facility] Sodium [Moles/Vol] 138 mmol/L Normal 136-145 [facility] Urea nitrogen (BldV) [Mass/Vol] 18 mg/dL Normal 7.0-18.0 [facility] Urea nitrogen/Creatinine [Mass ratio] 17 mg/mg Normal [facility] CBC W Auto Differential pane l (Bld)on 11-22-2020 Basophils (Bld) [#/Vol] 0.0 thou/mcL Normal 0.0-0.2 [facility] Basophils/100 WBC (Bld) 0.7 % Normal 0-3 [facility] Differential cell count method Nom (Bld) AUTOMATED DIFFERENTIAL Normal [facility] Eosinophils (Bld) [#/Vol] 0.2 thou/mcL Normal 0.0-0.4 [facility] Eosinophils/100 WBC (Bld) 3.5 % Normal 0-7 [facility] Erythrocyte distribution width (RBC) [Entitic vol] 14.3 % Normal 11.7-15.0 [facility] Hematocrit (Bld) [Volume fraction] 24.8 % Low 34.0-50.0 [facility] Hemoglobin (Bld) [Mass/Vol] 8.2 g/dL Low 11.5-17.0 [facility] Lymphocytes (Bld) [#/Vol] 1.1 thou/mcL Normal 0.7-4.5 [facility] Lymphocytes/100 WBC (Bld) 17.5 % Normal 14-46 [facility] MCH (RBC) [Entitic mass] 29.9 Picograms Normal 27.0-34.0 [facility] MCHC (RBC) [Mass/Vol] 33.0 g/dL Normal 32.0-36.0 [facility] MCV (RBC) [Entitic vol] 90.7 fL Normal 80-98 [facility] Monocytes (Bld) [#/Vol] 0.8 thou/mcL Normal 0.1-1.0 [facility] Monocytes/100 WBC (Bld) 13.0 % Normal 4-13 [facility] Neutrophils (Bld) [#/Vol] 4.2 thou/mcL Normal 1.5-7.8 [facility] Neutrophils/100 WBC (Bld) 65.3 % Normal 40-74 [facility] Platelet mean volume (Bld) [Entitic vol] 10.2 fL Normal 7.5-11.2 [facility] Platelets (Bld) [#/Vol] 176 thou/mcL Normal 140-415 [facility] RBC (Bld) [#/Vol] 2.74 x(10)6/mcL Low 3.80-5.60 Mo [facility] WBC (Bld) [#/Vol] 6.5 thou/mcL Normal 4.0-10.5 [facility] Coronavirus (COVID-19/SARS-C oV-2) RAPIDon 11-22-2020 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 N Normal [facility] First test N Normal [facility] ICU N Normal [facility] Illness or injury onset date and time Normal [facility] Patient was hospitalized because of this condition Y [facility] status N Normal [facility] Resides in congregate care setting N Normal [facility] SARS-CoV-2 (COVID-19) RNA REBECCA+probe Ql (Resp) Not detected Normal NDET [facility] Comment on above: Result Comment: This test was performed via the [employer] NOW COVID 19 assay and has been authorized by FDA under an Emergency Use Authorization (EUA). The assay is validated for nasopharyngeal (WARP DOFFER), nasal, and oropharyngeal (OP) direct swabs. The [...] Symptomatic as defined by CDC N Normal [facility] OR Nursingon 11-22-2020 OR Nursing Normal [facility] PT Coag (PPP) [Time]on 11-22 INR Coag (Bld) [Relative time] 1.4 {INR} Normal [facility] Comment on above: Result Comment: NOEMÍ [...] room and take this document with you. [facility] 11/22/20 14:48 [address] [place]. [address] PATIENT INFORMATION Name: TRINITY GODINEZ Address: [address] [place], [place] [address] Age: 65 Years Phone: [phone] : 1955 12:00 Sex: Female Race: White Ethnicity: Not Hispan/Lat Admitted From: Clinic or [facility] Medical Service: Orthopedic Surgery Nurse Unit/Bed: (CO) 2N 0221-01 Admit Date: 11/19/2020 09:38 PCP: Levi Shine MD PHYSICIANS INVOLVED WITH CARE ------ Attending Physicians: Ming Quinn MD , Calos - Orthopaedic Surg Admitting Physician: Ming Quinn MD , Calos - Orthopaedic Surg Primary Care Physician:Levi Shine MD,[facility], - Consults: Shailesh VEGA , Grabiel Maciel - Infectious Disease Andrew VEGA , Jose E - Internal Medicine Mario VEGA , Trey E - Internal Medicine Heather, CHAVO - Internal Medicine Angeles VEGA , [place] W - Internal Medicine FOLLOW-UP APPOINTMENTS: Provider: Specialty: Address: Date: Calos Smith Jr, MD Orthopaedic Surg [address] [facility] [address] [facility] [phone] (1) Three Weeks Comment: Call for an Appointment AND ANY QUESTIONS OR CONCERNS Provider: Specialty: Address: Date: Grabiel Hicks MD Infectious Disease [address] [phone] (1) Call for an Appointment Comment: 1) call soon for an appointment with Dr. Hicks in 4-5 weeks, 2) you will be on IV antibiotic until the time of your reimplantation, 3) every Sunday the nursing staff will collect blood work (CBC,SR,CRP,Creat, Vanco Trough) and fax to Dr. Hicks ([phone]), 4) call sooner for fever, chills, nausea, vomiting, diarrhea, rash, pain in your PICC arm or worsening condtion of your wound. Provider: Specialty: Address: Date: Levi Shine MD Family Practice [address] [phone] (1) Follow-up as needed Provider: Specialty: Address: Date: [facility] Follow-up as needed Comment: [place] [facility] [phone] ALLERGIES: NSAIDs : Reaction:Anaphylactic reaction Ancef : [...] doses are changed, or new medications (including rwvx-mmt-wtubkis products) are added. Ask your doctor if [...] CBC,SR,Creat,CRP, Vanco Trough, fax to Dr. Hicks [phone] 3)IV ATB UNTIL reimplant 4)Call Dr. Hicks for F/C/S, N/V/D, rash, 5)F/U with Dr Hicks in 4-5 weeks. Refills: 0., Call Dr. Hicsk if released from your facility before IV [...] Insomnia/Sleep. T (more content not included)... Normal [facility] Prothrombin Timeon PT Coag (PPP) [Time] 16.9 s High 11.9-14.6 M[facility] t [facility] Vancomycin [Moles/Vol]on Vancomycin random [Mass/Vol] 28.3 ZZ Normal 10.0-50.0 [facility] Basic metabolic 2000 panelon 11-21-2020 Calcium [Mass/Vol] 8.2 mg/dL Low 8.5-10.6 [facility] Chloride [Moles/Vol] 106 mmol/L Normal 98-107 M[facility] t [facility] CO2 [Moles/Vol] 29 mmol/L Normal 21-32 [facility] Creatinine [Mass/Vol] 1.07 mg/dL High 0.55-1.02 Arin [facility] Glucose [Mass/Vol] 94 mg/dL Normal 70-99 [facility] Potassium [Moles/Vol] 4.3 mmol/L Normal 3.5-5.1 [facility] Sodium [Moles/Vol] 141 mmol/L Normal 136-145 [facility] Urea nitrogen (BldV) [Mass/Vol] 18 mg/dL Normal 7.0-18.0 [facility] Urea nitrogen/Creatinine [Mass ratio] 17 mg/mg Normal [facility] CBC W Auto Differential pane l (Bld)on 11-21-2020 Basophils (Bld) [#/Vol] 0.0 thou/mcL Normal 0.0-0.2 [facility] Basophils/100 WBC (Bld) 0.7 % Normal 0-3 [facility] Differential cell count method Nom (Bld) AUTOMATED DIFFERENTIAL Normal [facility] Eosinophils (Bld) [#/Vol] 0.1 thou/mcL Normal 0.0-0.4 [facility] Eosinophils/100 WBC (Bld) 1.6 % Normal 0-7 [facility] Lymphocytes (Bld) [#/Vol] 1.3 thou/mcL Normal 0.7-4.5 [facility] Lymphocytes/100 WBC (Bld) 18.7 % Normal 14-46 [facility] Monocytes (Bld) [#/Vol] 0.8 thou/mcL Normal 0.1-1.0 [facility] Monocytes/100 WBC (Bld) 12.1 % Normal 4-13 [facility] Neutrophils (Bld) [#/Vol] 4.6 thou/mcL Normal 1.5-7.8 [facility] Neutrophils/100 WBC (Bld) 66.9 % Normal 40-74 [facility] Erythrocyte distribution width (RBC) [Entitic vol] 14.6 % Normal 11.7-15.0 [facility] Hematocrit (Bld) [Volume fraction] 25.9 % Low 34.0-50.0 [facility] Hemoglobin (Bld) [Mass/Vol] 8.5 g/dL Low 11.5-17.0 [facility] MCH (RBC) [Entitic mass] 29.8 Picograms Normal 27.0-34.0 [facility] MCHC (RBC) [Mass/Vol] 32.8 g/dL Normal 32.0-36.0 [facility] MCV (RBC) [Entitic vol] 90.9 fL Normal 80-98 [facility] Platelet mean volume (Bld) [Entitic vol] 9.9 fL Normal 7.5-11.2 [facility] Platelets (Bld) [#/Vol] 181 thou/mcL Normal 140-415 [facility] RBC (Bld) [#/Vol] 2.85 x(10)6/mcL Low 3.80-5.60 Mo [facility] WBC (Bld) [#/Vol] 7.0 thou/mcL Normal 4.0-10.5 [facility] PT Coag (PPP) [Time]on 11-21 INR Coag (Bld) [Relative time] 1.4 {INR} Normal [facility] Comment on above: Result Comment: NOEMÍ GOMEZ THE INDUCTION PHASE OF ORAL ANTICOAGULATION, THE INR MAY NOT REFLECT THE ANTICOAGULANT STATUS OF THE PATIENT. THERAPEUTIC RANGES FOR INR'S ARE: MOST CLINICAL SITUATIONS: INR 2.0-3.0 MECHANICAL PROSTHETIC VALVES: INR 2.5-3.5 CRITICAL: INR 5.0 Prothrombin Timeon PT Coag (PPP) [Time] 17.1 s High 11.9-14.6 [facility] Basic metabolic 2000 panelon 11-20-2020 Calcium [Mass/Vol] 8.3 mg/dL Low 8.5-10.6 [facility] Chloride [Moles/Vol] 104 mmol/L Normal 98-107 [facility] CO2 [Moles/Vol] 24 mmol/L Normal 21-32 [facility] Creatinine [Mass/Vol] 0.97 mg/dL Normal 0.55-1.02 [facility] Glucose [Mass/Vol] 126 mg/dL High 70-99 [facility] Potassium [Moles/Vol] 4.4 mmol/L Normal 3.5-5.1 [facility] Sodium [Moles/Vol] 139 mmol/L Normal 136-145 [facility] Urea nitrogen (BldV) [Mass/Vol] 18 mg/dL Normal 7.0-18.0 [facility] Urea nitrogen/Creatinine [Mass ratio] 19 mg/mg Normal [facility] CBC W Auto Differential pane l (Bld)on 11-20-2020 Basophils (Bld) [#/Vol] 0.0 thou/mcL Normal 0.0-0.2 [facility] Basophils/100 WBC (Bld) 0.2 % Normal 0-3 [facility] Differential cell count method Nom (Bld) AUTOMATED DIFFERENTIAL Normal [facility] Eosinophils (Bld) [#/Vol] 0.0 thou/mcL Normal 0.0-0.4 [facility] Eosinophils/100 WBC (Bld) 0.0 % Normal 0-7 [facility] Lymphocytes (Bld) [#/Vol] 0.9 thou/mcL Normal 0.7-4.5 [facility] Lymphocytes/100 WBC (Bld) 9.1 % Low 14-46 [facility] Monocytes (Bld) [#/Vol] 0.9 thou/mcL Normal 0.1-1.0 [facility] Monocytes/100 WBC (Bld) 9.2 % Normal 4-13 [facility] Neutrophils (Bld) [#/Vol] 7.8 thou/mcL Normal 1.5-7.8 [facility] Neutrophils/100 WBC (Bld) 81.5 % High 40-74 [facility] Erythrocyte distribution width (RBC) [Entitic vol] 14.7 % Normal 11.7-15.0 [facility] Hematocrit (Bld) [Volume fraction] 30.7 % Low 34.0-50.0 [facility] Hemoglobin (Bld) [Mass/Vol] 10.2 g/dL Low 11.5-17.0 [facility] MCH (RBC) [Entitic mass] 30.3 Picograms Normal 27.0-34.0 [facility] MCHC (RBC) [Mass/Vol] 33.3 g/dL Normal 32.0-36.0 [facility] MCV (RBC) [Entitic vol] 90.9 fL Normal 80-98 [facility] Platelet mean volume (Bld) [Entitic vol] 11.1 fL Normal 7.5-11.2 [facility] Platelets (Bld) [#/Vol] 246 thou/mcL Normal 140-415 [facility] RBC (Bld) [#/Vol] 3.38 x(10)6/mcL Low 3.80-5.60 Mo [facility] WBC (Bld) [#/Vol] 9.5 thou/mcL Normal 4.0-10.5 [facility] PT Coag (PPP) [Time]on 11-20 INR Coag (Bld) [Relative time] 1.0 {INR} Normal [facility] Comment on above: Result Comment: NOEMÍ GOMEZ THE INDUCTION PHASE OF ORAL ANTICOAGULATION, THE INR MAY NOT REFLECT THE ANTICOAGULANT STATUS OF THE PATIENT. THERAPEUTIC RANGES FOR INR'S ARE: MOST CLINICAL SITUATIONS: INR 2.0-3.0 MECHANICAL PROSTHETIC VALVES: INR 2.5-3.5 CRITICAL: INR 5.0 Prothrombin Timeon PT Coag (PPP) [Time] 13.6 s Normal 11.9-14.6 [facility] Anesthesia Recordon 11-20-19 Anesthesia Record Patient: TRINITY GODINEZ MRN: ([id number] Age: 65 years Sex: Female : 1955 Associated Diagnoses: None Author: Angel Wyatt MD Procedure Time Out [place] Protocol: patient identity verified, site verified, side verified, procedure to be done verified, patient position verified. REGIONAL ANESTHESIA PROCEDURE Procedure date and begin time: Peripheral nerve block. Procedure date and end time: See nursing notes. Performed by: Angel Wyatt MD. Assisted by: no kindergarten teacher assistant. Informed consent: signed by patient. Technique: [...] Diagnosis Preoperative Diagnosis: Postoperative Diagnosis: . Normal [facility] Culture Aerobicon 11-19-2020 Bacteria identified Aer cx Nom (Unsp spec) [facility] Microbiology PROCEDURE: Culture Aerobic SOURCE: Tissue BODY [...] NO EPITHELIALS SEEN, NO ORGANISMS SEEN Normal [facility] Comment on above: Performed By: #### 6 34-6 ####[address] Bacteria identified Aer cx Nom (Unsp spec) [facility] Microbiology PROCEDURE: Culture Aerobic SOURCE: Tissue BODY [...] POLYS RARE EPIS NO ORGANISMS SEEN Normal [facility] Comment on above: Performed By: #### 6 34-6 ####[address] Bacteria identified Aer cx Nom (Unsp spec) [facility] Microbiology PROCEDURE: Culture Aerobic SOURCE: Tissue BODY [...] POLYS No Epithelials NO ORGANISMS SEEN Normal [facility] Comment on above: Performed By: #### 6 34-6 ####[address] Bacteria identified Aer cx Nom (Unsp spec) [facility] Microbiology PROCEDURE: Culture Aerobic SOURCE: Tissue BODY [...] POLYS No Epithelials NO ORGANISMS SEEN Normal [facility] Comment on above: Performed By: #### 6 34-6 ####[address] Culture Anaerobicon 11-20-19 21 Bacteria identified Anaer cx Nom (Unsp spec) [facility] Microbiology PROCEDURE: Culture Anaerobic SOURCE: Tissue BODY [...] EDT CONTRIBUTOR_SYSTEM, CO_PN CULTURE IN PROGRESS Normal [facility] Comment on above: Performed By: #### 6 35-3 ####[address] Bacteria identified Anaer cx Nom (Unsp spec) [facility] Microbiology PROCEDURE: Culture Anaerobic SOURCE: Tissue BODY [...] 20:36 EDT CONTRIBUTOR_SYSTEM, CO_PN CULTURE IN PROGRESS [facility] Comment on above: Performed By: #### 6 35-3 ####[address] Bacteria identified Anaer cx Nom (Unsp spec) [facility] Microbiology PROCEDURE: Culture Anaerobic SOURCE: Tissue BODY [...] 20:36 EDT CONTRIBUTOR_SYSTEM, CO_PN CULTURE IN PROGRESS [facility] Comment on above: Performed By: #### 6 35-3 ####[address] Bacteria identified Anaer cx Nom (Unsp spec) [facility] Microbiology PROCEDURE: Culture Anaerobic SOURCE: Tissue BODY [...] 20:36 EDT CONTRIBUTOR_SYSTEM, CO_PN CULTURE IN PROGRESS [facility] Comment on above: Performed By: #### 6 35-3 ####[facility] [address] [place], [place] Culture Funguson 11-19-2020 Fungus identified Cx Nom (Unsp spec) [facility] Microbiology PROCEDURE: Culture Fungus SOURCE: Tissue BODY [...] CULTURE WILL BE HELD FOR 1-[address] [facility] Comment on above: Performed By: #### 5 80-1 ####[address] [place], [place] Fungus identified Cx Nom (Unsp spec) [facility] Microbiology PROCEDURE: Culture Fungus SOURCE: Tissue BODY [...] CULTURE WILL BE HELD FOR 1-[address] [facility] Comment on above: Performed By: #### 5 80-1 ####[address] Fungus identified Cx Nom (Unsp spec) [facility] Microbiology PROCEDURE: Culture Fungus SOURCE: Tissue BODY [...] CULTURE WILL BE HELD FOR 1-[address] [facility] Comment on above: Performed By: #### 5 80-1 ####[address] Fungus identified Cx Nom (Unsp spec) [facility] Microbiology PROCEDURE: Culture Fungus SOURCE: Tissue BODY [...] WILL BE HELD FOR 1-4 WEEKS [facility] Comment on above: Performed By: #### 5 80-1 ####[facility] [address], [place] PACU I Nursingon 11-19-2020 PACU I Nursing CO NA PACU I Nursing Record Summary Primary Physician: Calos Smith Jr, MD Finalized Date/Time: 11/19/20 18:19:26 Pt. Name: TRINITY GODINEZ/Sex: 1955 Female Med Rec #: [id number] Physician: Calos Smith Jr, MD Financial #: [id number] Pt. Type: I Room/Bed: / Admit/Disch: 11/19/20 [...] By: Teresita Franco RN 11/19/20 18:19 [facility] PreOp Nursingon 11-19-2020 PreOp Nursing CO NA PreOp Nursing Record Summary Primary Physician: Calos Smith Jr, MD Finalized Date/Time: 11/19/20 13:09:57 Pt. Name: TRINITY GODINEZ/Sex: 1955 Female Med Rec #: [id number] Physician: Calos Smith Jr, MD Financial #: [id number] Pt. Type: I Room/Bed: / Admit/Disch: 11/19/20 [...] By: Cortes Mcclain RN 11/19/20 13:09 [facility] Surgical Pathology Final Rep tom 11-19-2020 Pathology study TRINITY GODINEZ [id number] [id number] F [id number] / [id number] ORDERING PHYSICIAN: CALOS SMITH [...] cut surface is rogers-pink, soft and homogeneous. Requirements Engineer sections are submitted in block (A1). (RS/1C/MS/RT) Gross examination was performed at [facility]. AJB:ASPEN 11/22/20 By: LICHA ZEPEDA M.D. (Electronic Signature) MICROSCOPIC: The technical component was performed at [facility], [address] [place] [address]. Microscopic examination was performed. Case resulted at [facility]. 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 NOTE: There is no significant perivascular lymphocytic inflammation. JH2:JH2:JH208 END OF REPORT END OF REPORT [facility] XR Knee 1-2 Views LTon 08-20 [...] is present. Anterior skin elvira are noted. [place] thanks you for the opportunity to care for your patient. Workstation ID: [id number] FINAL REPORT Dictated By: Abdias Morejon MD 11/19/2020 16:54 Assigned Physician: Abdias Morejon MD Reviewed and Electronically Signed By: Abdias Morejon MD 11/19/2020 16:56 Transcribed by: STEW 11/19/2020 16:54 Technologist: BASIL [facility] PreOp Nursingon 11-18-2020 PreOp Nursing CO NA PreOp Nursing Record Summary Primary Physician: Calos Smith Jr, MD Finalized Date/Time: 11/18/20 15:01:45 Pt. Name: TRINITY GODINEZ/Sex: 1955 Female Med Rec #: [id number] Physician: Calos Smith Jr, MD Financial #: [id number] Pt. Type: I Room/Bed: / Admit/Disch: 11/17/20 [...] Signed By: Deisi Wu RN 11/18/20 15:[address] [facility] PT Coag (PPP) [Time]on 11-17 INR Coag (Bld) [Relative time] 1.1 {INR} [facility] Comment on above: Result Comment: NOEMÍ JASON THE INDUCTION PHASE OF ORAL ANTICOAGULATION, THE INR MAY NOT REFLECT THE ANTICOAGULANT STATUS OF THE PATIENT. THERAPEUTIC RANGES FOR INR'S ARE: MOST CLINICAL SITUATIONS: INR 2.0-3.0 MECHANICAL PROSTHETIC VALVES: INR 2.5-3.5 CRITICAL: INR 5.0 Prothrombin Timeon PT Coag (PPP) [Time] 14.1 s Normal 11.9-14.6 [facility] aPTT Coag (Bld) [Time]on aPTT Coag (PPP) [Time] 25.4 s Normal 23.2-34.6 [facility] Basic metabolic 2000 panelon 11-15-2020 Calcium [Mass/Vol] 9.7 mg/dL Normal 8.5-10.6 [facility] Chloride [Moles/Vol] 100 mmol/L Normal 98-107 [facility] CO2 [Moles/Vol] 26 mmol/L Normal 21-32 [facility] Creatinine [Mass/Vol] 1.25 mg/dL High 0.55-1.02 [facility] Glucose [Mass/Vol] 79 mg/dL Normal 70-99 [facility] Potassium [Moles/Vol] 4.0 mmol/L Normal 3.5-5.1 [facility] Sodium [Moles/Vol] 137 mmol/L Normal 136-145 [facility] Urea nitrogen (BldV) [Mass/Vol] 31 mg/dL High 7.0-18.0 [facility] Urea nitrogen/Creatinine [Mass ratio] 25 mg/mg Normal [facility] Blood type and Indirect anti body screen panel (Bld)on 11-15-2020 Blood group antibody screen Ql Negative Normal NEG [facility] Rh Nom (Bld) Positive Normal [facility] C-Reactive Proteinon 021 CRP [Mass/Vol] 5.1 mg/L Normal 0.0-9.0 [facility] CBC W Auto Differential pane l (Bld)on 11-15-2020 Basophils (Bld) [#/Vol] 0.1 thou/mcL Normal 0.0-0.2 [facility] Basophils/100 WBC (Bld) 1.3 % Normal 0-3 [facility] Differential cell count method Nom (Bld) AUTOMATED DIFFERENTIAL Normal [facility] Eosinophils (Bld) [#/Vol] 0.2 thou/mcL Normal 0.0-0.4 [facility] Eosinophils/100 WBC (Bld) 2.7 % Normal 0-7 [facility] Erythrocyte distribution width (RBC) [Entitic vol] 15.2 % High 11.7-15.0 [facility] Hematocrit (Bld) [Volume fraction] 38.1 % Normal 34.0-50.0 [facility] Hemoglobin (Bld) [Mass/Vol] 12.5 g/dL Normal 11.5-17.0 [facility] Lymphocytes (Bld) [#/Vol] 1.8 thou/mcL Normal 0.7-4.5 [facility] Lymphocytes/100 WBC (Bld) 21.9 % Normal 14-46 [facility] MCH (RBC) [Entitic mass] 30.0 Picograms Normal 27.0-34.0 [facility] MCHC (RBC) [Mass/Vol] 32.9 g/dL Normal 32.0-36.0 [facility] MCV (RBC) [Entitic vol] 91.3 fL Normal 80-98 [facility] Monocytes (Bld) [#/Vol] 0.5 thou/mcL Normal 0.1-1.0 [facility] Monocytes/100 WBC (Bld) 6.6 % Normal 4-13 [facility] Neutrophils (Bld) [#/Vol] 5.5 thou/mcL Normal 1.5-7.8 [facility] Neutrophils/100 WBC (Bld) 67.5 % Normal 40-74 [facility] Platelet mean volume (Bld) [Entitic vol] 9.9 fL Normal 7.5-11.2 [facility] Platelets (Bld) [#/Vol] 314 thou/mcL Normal 140-415 [facility] RBC (Bld) [#/Vol] 4.17 x(10)6/mcL Normal 3.80-5.60 [facility] WBC (Bld) [#/Vol] 8.1 thou/mcL Normal 4.0-10.5 [facility] PT Coag (PPP) [Time]on 11-15 INR Coag (Bld) [Relative time] 1.5 {INR} [facility] Comment on above: Result Comment: DURI NG THE INDUCTION PHASE OF ORAL ANTICOAGULATION, THE INR MAY NOT REFLECT THE ANTICOAGULANT STATUS OF THE PATIENT. THERAPEUTIC RANGES FOR INR'S ARE: MOST CLINICAL SITUATIONS: INR 2.0-3.0 MECHANICAL PROSTHETIC VALVES: INR 2.5-3.5 CRITICAL: INR 5.0 Prothrombin Timeon PT Coag (PPP) [Time] 17.7 s High 11.9-14.6 [facility] Sedimentation Rate rbcon ESR (Bld) [Velocity] 52 mm/h High 0-30 [facility] Coag (Bld) [Time]on aPTT Coag (PPP) [Time] 27.8 s Normal 23.2-34.6 [facility] Prothrombin Time INRon 11-08 INR Coag (PPP) [Relative time] 1.4 {INR} Normal [facility] Comment on above: Result Comment: INR Therapeutic [...] heart valves: 3 - 4.5 PERFORMED BY: [place] [address] PATHOLOGIST SOLAR SYSTEM INSTALLER JEFFREY GEIGER M.D. Performed By: #### P T #### [facility] [address] [place] [address] PT Coag (PPP) [Time] 15.5 s High 9.0-12.9 [facility] Comment on above: Performed By: #### P T #### [facility] [address] [id number] [facility] Consultation Noteon 08-24-19 Consultation Note [id number]. 00CD:127 Normal [facility] Operative Reporton Operative Report [id number] .00CD:127 Normal [facility] Pathology Noteon 08-23-2020 Pathology Note [id number] .00CD:127 Normal [facility] Consultation Noteon 08-20-19 Consultation Note [id number] .[id number]:127 [facility] Facesheeton 08-19-2020 Facesheet [id number] .[id number]:127 Normal [facility] Vital Signs Date Time Vital Sign Value Performing Clinician Faci lity 04-22-2022 11:44-0500 Body temperature 99.1 [degF] Calos Smith MD Work Phone: [facility] 04-22-2022 11:44-0500 Diastolic blood pressure 62 mm[Hg] Calos Smith MD Work Phone: [facility] 04-22-2022 11:44-0500 Heart rate 90 /min Calos Smith MD Work Phone: [facility] 04-22-2022 11:44-0500 Respiratory rate 12 /min Calos Smith MD Work Phone: [facility] 04-22-2022 11:44-0500 SaO2% (BldA) [Mass fraction] 92 % Calos Smith MD Work Phone: [facility] 04-22-2022 11:44-0500 Systolic blood pressure 109 mm[Hg] Calos Smith MD Work Phone: [facility] 04-20-2022 12:25-0500 Body height 172.7 cm Calos Smith MD Work Phone: [facility] 04-20-2022 12:25-0500 Body mass index (BMI) [Ratio] 27.12 kg/m2 Calos Smith MD Work Phone: [facility] 04-20-2022 12:25-0500 Body weight 80.9 kg Calos Smith MD Work Phone: [facility] 01-06-2022 10:05-0400 Diastolic blood pressure 63 mm[Hg] Calos Smith MD Work Phone: [facility] 01-06-2022 10:05-0400 Heart rate 84 /min Calos Smith MD Work Phone: [facility] 01-06-2022 10:05-0400 Systolic blood pressure 111 mm[Hg] Calos Smith MD Work Phone: [facility] 01-06-2022 07:55-0400 SaO2% (BldA) [Mass fraction] 96 % Calos Smith MD Work Phone: [facility] 01-06-2022 07:52-0400 Body temperature 97 [degF] Calos Smith MD Work Phone: [facility] 01-06-2022 04:28-0400 Respiratory rate 12 /min Calos Smith MD Work Phone: [facility] 01-03-2022 07:10-0400 Body height 172.7 cm Calos Smith MD Work Phone: [facility] 01-03-2022 07:10-0400 Body mass index (BMI) [Ratio] 27.05 kg/m2 Calos Smith MD Work Phone: [facility] 01-03-2022 07:10-0400 Body weight 80.7 kg Calos Smith MD Work Phone: [facility] 01-08-2021 09:00-0400 SaO2% (BldA) [Mass fraction] 93 % Calos Smith MD Work Phone: [facility] 01-08-2021 08:12-0400 Body temperature 97.2 [degF] Calos Smith MD Work Phone: [facility] 01-08-2021 08:12-0400 Diastolic blood pressure 83 mm[Hg] Calos Smith MD Work Phone: [facility] 01-08-2021 08:12-0400 Heart rate 76 /min Calos Smith MD Work Phone: [facility] 01-08-2021 08:12-0400 Respiratory rate 12 /min Calos Smith MD Work Phone: [facility] 01-08-2021 08:12-0400 Systolic blood pressure 125 mm[Hg] Calos Smith MD Work Phone: [facility] 01-06-2021 13:37-0400 Body height 175.3 cm Calos Smith MD Work Phone: [facility] Comment on above: Pt reported 01-06-2021 13:37-0400 Body mass index (BMI) [Ratio] 30.41 kg/m2 Calos Smith MD Work Phone: [facility] 01-06-2021 13:37-0400 Body weight 93.4 kg Calos Smith MD Work Phone: [facility] Comment on above: Actual Encounters Encounter Date Encounter Type Care Provider Facility Start: 02-19-2023 ambulatory BRITTANY WOOD [facility] Start: 08-26-2022 End: 08-30-[address] LEVI SHINE . Facility:[facility] Start: 08-25-[address] LEVI SHINE . Facili ty:[facility] Start: 08-23-2022 End: 08-23-2022 ambulatory JACKY HOWELL Facility:[facility] Start: 08-22-[address] LEVI SHINE . Facili ty:[facility] Start: 08-01-2022 End: 08-02-[address] LEVI SHINE . Facility:[facility] Start: 05-22-2022 End: 05-23-[address] LEVI SHINE . Facility:[facility] Start: 05-04-2022 ambulatory BRITTANY NINA [facility] Start: 05-03-2022 ambulatory BRITTANY WOOD [facility] Start: 05-02-2022 ambulatory LEVI SHINE [facility] Start: 05-01-2022 ambulatory LEVI SHINE [facility] Start: 04-30-2022 [facility] Start: 04-29-[address] [facility] Start: 04-29-2022 Encounter for [facility] adult medical examination without abnormal findings [facility] Start: 04-28-2022 ambulatory LEVI SHINE [facility] Start: 04-27-2022 ambulatory LEVI SHINE [facility] Start: 04-26-2022 ambulatory LEVI SHINE [facility] Start: 04-25-2022 ambulatory LEVI SHINE [facility] Start: 04-24-2022 ambulatory MENDENHALL NINA [facility] Start: 04-23-2022 ambulatory MENDENHALL NINA [facility] Start: 04-20-2022 End: 04-22-2022 Evaluation and management of inpatient LEVI SHINE [facility] Start: 04-20-2022 End: 04-22-2022 Evaluation and management of inpatient Calos Smith MD Work Phone: [facility] Comment on above: Other mechanical com plication of internal left knee prosthesis, initial encounter ([facility] Start: 04-18-2022 End: 04-18-[address] LEVI SHINE . Facility:[facility] Start: 02-14-[address] LEVI SHINE . Facili ty:[facility] Start: 01-31-2022 End: 03-01-2022 ambulatory SHAIKH Raheem FOWLER Facility:[facility] Start: 01-05-2022 Encounter for preprocedural laboratory examination DR LEVI SHINE . [facility] Start: 01-03-2022 End: 01-06-2022 Evaluation and management of inpatient Calos Smith MD Work Phone: [facility] Start: 01-03-2022 End: 01-06-2022 Subsequent hospital visit by physician Calos Smith MD Work Phone: [facility] Start: 01-02-2022 End: 01-03-[address] LEVI SHINE . Facility:[facility] Start: 01-02-2022 End: 01-03-2022 Encounter for preprocedural laboratory examination DR LEVI SHINE . Facility:[facility] Start: 12-31-2021 ambulatory SHAIKH Raheem PARKEREMMA Facilit y:[facility] Start: 12-12-2021 End: 12-14-[address] LEVI SHINE . Facility:[facility] Start: 10-21-2021 End: 10-22-[address] LEVI SHINE . Facility:[facility] Start: 01-11-2021 ambulatory CALOS SMITH JR. Fac ility:[facility] Start: 01-03-2021 End: 01-08-2021 Evaluation and management of inpatient Calos Smith MD Work Phone: [facility] Start: 05-18-2020 End: 06-17-2020 ambulatory KARAN SULLIVAN Facility:[facility] Start: 05-12-2020 End: 05-27-2020 ambulatory KARAN SULLIVAN Facility:[facility] Procedures Date Procedure Procedure Detail Performing [...] above: Performed By: #### 3 4532-2 #### [facility] [address] [place] [address] Start: 01-05-2022 Prothrombin time Chong Hsieh MD [...] Tdap) DTaP,Tdap,and Td Vaccines (2 - Tdap) [facility] Start: 04-22-2023 Hypertension/CHF/CAD Annual BMP Blood Test Hypertension/CHF/CAD Annual BMP Blood Test [facility] Start: 01-05-2023 Hypertension/CHF/CAD Annual BMP Blood Test Hypertension/CHF/CAD Annual BMP Blood Test [facility] Start: 12-01-2021 Influenza vaccination Influenza Vacc ine (#1) [facility] Start: 08-19-2021 COVID-19 Vaccine (4 - Booster for Pfizer series) COVID-19 Vaccine (4 - Booster for Pfizer series) [facility] Start: 01-16-2021 COVID-19 Vaccine (3 - Booster for Pfizer series) COVID-19 Vaccine (3 - Booster for Pfizer series) [facility] Start: 12-20-2020 Hypertension/CHF/CAD Annual BMP Blood Test Hypertension/CHF/CAD Annual BMP Blood Test [facility] Start: 12-15-2020 Adolescent depressio n screening assessment Depression Screening [facility] Start: 12-15-2020 Depression Screening Depression Scre ening [facility] Start: 12-15-2020 Hepatitis C screening Hepatitis C Sc reening [facility] Start: 12-15-2020 HIV screening HIV Screening [facility] Start: 12-15-2020 Lipid panel Cholesterol Sc reening (Lipid Panel) [facility] Start: 12-15-2020 Medicare Annual Well ness Visit Medicare Annual Wellness Visit [facility] Start: 12-15-2020 Screening for malign ant neoplasm of breast Breast Cancer Screening [facility] Start: 12-15-2020 Screening for malign ant neoplasm of colon Colorectal Cancer Screening: Colonoscopy [facility] Start: 12-15-2020 Screening for malign ant neoplasm of lung Lung Cancer Screening (Low Dose CT) [facility] Start: 12-15-2020 Social Influencers o f Health Screening Social Influencers of Health Screening [facility] Start: 12-01-2020 Influenza vaccination Influenza Vacc ine (#1) [facility] Start: 02-01-2016 Pneumococcal Vaccine : Pediatrics (0 to 5 Years) and At-Risk Patients (6 to 64 Years) (2 - PCV) Pneumococcal Vaccine: Pediatrics (0 to 5 Years) and At-Risk Patients (6 to 64 Years) (2 - PCV) [facility] Start: 2007 Zoster Vaccines (1 of 2) Zoster Vacc ngozi (1 of 2) [facility] Start: 1978 Screening for malign ant neoplasm of cervix Cervical Cancer Screening: Pap Smear [facility] Start: 1976 DTaP,Tdap,and Td Vac cines (1 - Tdap) DTaP,Tdap,and Td Vaccines (1 - Tdap) [facility] Start: 1955 Hepatitis B Vaccines (1 of 3 - 3-dose series) Hepatitis B Vaccines (1 of 3 - 3-dose series) [facility] Bacteria identified in Tissue by Culture Culture tissue with gram stain Microbiology Routine 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, initial encounter ([facility]) 04/20/2022 2:13 PM EST [facility] Bacteria identified in Unspecified specimen by Anaerobe culture [facility] Work Phone: Bacteria identified in Unspecified specimen by Sterile body fluid culture Culture body fluid with gram stain Microbiology Routine 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, initial encounter ([facility]) 04/20/2022 2:10 PM EST [facility] End: 01-08-2021 Communication order: Respiratory Communication order: Respiratory Respiratory Care Routine Once for 1 Occurrences starting 01/08/2021 until 01/08/2021 [facility] Comment on above: Once for 1 Occurrenc es starting 01/08/2021 until 01/08/2021 Fungus identified in Skin by Culture [facility] Incentive spirometry RT Incentiv e spirometry RT Respiratory Care Routine Daily until discontinued starting 01/08/2021 [facility] Comment on above: Daily until disconti nued starting 01/08/2021 Mycobacterium sp identified in Unspecified specimen by Organism specific culture [facility] End: 01-13-2021 Prothrombin time (PT) Prothrombin time with INR Lab Routine Daily for 6 Days starting 01/08/2021 until 01/13/2021, 1 completed [facility] Work Phone: Comment on above: Daily for 6 Days sta rting 01/08/2021 until 01/13/2021, 1 completed Immunizations Immunization Date Immunization Notes Care Provider Fa pattity 02-10-2021 influenza virus vacc ine, unspecified formulation Calos Ming MD Work Phone: [facility] 01-03-2020 influenza virus vacc ine, unspecified formulation Calos Smith MD Work Phone: [facility] Payers Date Payer Category Payer Medicare MEDICARE MEDICAR E RAILROAD [id number] 2015-Present [address] [address] [place] [address] Medicare [id number] 2015 Medicare MEDICARE MEDICAR E RAILROAD [id number] 2015-Present [address] [address] [place] [address] Medicare [id number] 1959 Medicare [id number] 1959 Private Health Insurance [id number] 1955 Unknown [id number] 2.16.840.1.080731.3.579.2 .647 1955 Unknown [id number] 2.16.840.1.828353.3.579.2 .647 1955 Unknown [id number] 2.16.840.1.340015.3.579.2 .593 1955 Unknown [id number] 2.16.840.1.738671.3.579.2 .593 1957 Unknown [id number] 2.16.840.1.578121.3.579.2 .593 1957 Unknown [id number] 2.16.840.1.264198.3.579.2 .593 1957 Unknown [id number] 2.16.840.1.285577.3.579.2 .593 1957 Unknown [id number] 2.16.840.1.983944.3.579.2 .593 1957 Unknown [id number] 2.16.840.1.797123.3.579.2 .593 1957 Unknown [id number] 2.16.840.1.327744.3.579.2 .593 1957 Unknown [id number] 2.16.840.1.973813.3.579.2 .593 1957 Unknown [id number] 2.16.840.1.110808.3.579.2 .593 1957 Unknown [id number] 2.16.840.1.735936.3.579.2 .593 1957 Unknown [id number] 2.16.840.1.783211.3.579.2 .593 1957 Unknown [id number] 2..840.1.710984.3.579.2 .593 1957 Unknown [id number] 2.16.840.1.083631.3.579.2 .114 1957 Unknown [id number] 2.16.840.1.320643.3.579.2 .114 1957 Unknown [id number] 2.16.840.1.533178.3.579.2 .114 1957 Unknown [id number] 2.16.840.1.870017.3.579.2 .114 1957 Unknown [id number] 2.16.840.1.933802.3.579.2 .114 1957 Unknown [id number] 2.16.840.1.741544.3.579.2 .114 1957 Unknown [id number] 2.16.840.1.936664.3.579.2 .114 1957 Unknown [id number] 2.16.840.1.582092.3.579.2 .114 1957 Unknown [id number] 2.16.840.1.866187.3.579.2 .1143 1957 Unknown [id number] 2.16.840.1.550694.3.579.2 .1143 1955 Unknown [id number] 2.16.840.1.024673.3.579.2 .1143 Social History Date Type Detail Facility Tobacco smoking stat [facility] Start: 1955 Sex Assigned At Not on file T [facility] Start: 12-30-2021 Tobacco smoking stat [facility] Ex-smoker [facility] End: 08-31-2021 History of tobacco use Current smoker [facility] End: 08-31-2021 History of tobacco use Cigarette Smoker [facility] Start: 12-30-2021 Tobacco use and exposure Smokeless t obacco non-user [facility] Start: 01-03-2022 End: 04-20-2022 Alcohol intake Lifetime non-drinker (finding) [facility] Start: 12-24-2021 End: 04-20-2022 Exposure to SARS-CoV-2 (event) Not sure [facility] Medical Equipment Procedure Code Equipment Code Equipment Origin al Text Equipment Identifier Dates Cement Bone Biom et R 1x40 - [facility] - [id number] ()[id number] [id number])[id number], [id number] [facility] Start: 01-03-2022 Knee Tib Brg Ant Stbl [id number] - [facility] - [id number] ()[id number] [id number] 1)NA, [id number] [facility] Start: 01-03-2022 Clinical Notes 11-17-2020 [...] up around 12-12:30. Delroy at [facility] updated pt to arrive around 1. CARLOTA spoke with Delroy at [facility]. They can accept the pt today. No HENS needed. Pt will need a covid test [phone] Delroy will need updated with a transport [...] Clarity 04/20/2022 Hazy Body Fluid Color 04/20/2022 [place] Body Fluid RBC 04/20/2022 25,000 Body Fluid [...] 04/20/2022 16:06 Post-op Progress Note Subjective Procedure: SD RECONSTR DISLOCATING PATELLA W EXT REALIGNMENT AND/OR MUSCLE ADVMNT/RLS [71396] (Left knee extensor mechanism realignment with lateral retinacular release) SD LATERAL RETINACULAR RELEASE OPEN [44410] Interval History: Shannon Godinez, 66 y.o. female, [...] Plan for discharge to Subacute Rehab Facility ([facility] or [facility]) when cleared by PT and medically stable [...] or worsening End of Shift Summary: Progressing [facility]- Referral received and chart reviewed. Patient accepted by [facility]. Spoke to patient over phone and answered questions. She has been to our facility in the past. Will follow in in AM. Patient needs a rapid Covid prior to admission. Alicia Jacobo RN [phone] If [facility] can not accept the patient would like the next referral to [facility] Patient not discharging today called Dr Simpson and telephone order received to start the cleocin 300mg Q12hr for 10days as ordered for discharge Updated the patient she needs to choose another facility and she states [facility] [facility] and would like a referral and sent. Called Admissions and they will review the referral. Spoke to [facility] and they have no beds. [phone]. Have tried constantly for 15 minutes to call [facility] and no one answers. Line rings abut 10 times and then cuts off. [phone] Called Admissions at [facility] and she has the referral and will let CM know shortly if they will accept [facility] Physical Therapy Treatment PT Discharge Recommendations: [facility] facility placement Distance Ambulated (ft): 30 Device: [...] of care until patient is discharged from [facility]. Objective 04/21/22 1401 General Family/Caregiver Present [...] PT Plan Skilled PT PT Discharge Recommendations [facility] facility placement Goals/Education Encounter Problems Encounter Problems [...] Outcomes Date/Time User Outcome 04/21/22 1441 Licha eKlley PTA Progressing Goal: Caregiver/patient will demonstrate safety [...] Understanding Education Comments No comments found. 04/21/22 8436 Clinical Encounter Type Visited With Patient Time [...] daily for 7 days DC aspirin. Called [facility]. [facility] they have the referral and could be able to answer within an hour if they will be able to accept. Message left for Dr Simpson as patient can not take aspirin for a new anticoag order Called [facility] and spoke to the motel front desk clerk. [phone]. Admissions is not in for another hour or two. She states they do have beds and faxed the referral to [phone] Patient would like [facility]. Referral sent and message left for Admissions Belen Cast [phone] but they are an IPR and since the last IPR said she did not qualify for IPR CM is not anticipating an acceptance. Discussed with the patient and she would liek a referral [facility] [place] eating lunch. Declines at this time to finish eating. Will attempt again in pm. Patient would like [facility] [place], Called [facility] spoke to Alphonso [phone] She does not have beds until Maybe next week. Updated the patient she would like [facility] [place] [phone] spoke to Connie she does not have beds until at less next Sunday Patient would like I[facility] at [facility] Called Cori [phone] fax [phone] In admissions with referral and she does [...] opiates, and antibiotics to surgical service. Disposition: [facility] facility. Subjective Patient reports pain is currently [...] Plan for discharge to Subacute Rehab Facility ([facility] or [facility]) when cleared by PT and medically stable [...] d/c to SNF when able. [facility] Physical Therapy Evaluation PT Discharge Recommendations: [facility] facility placement Distance Ambulated (ft): 30 Device: [...] right Complication of internal left knee prosthesis ([facility]) 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, initial encounter ([facility]) Past Medical History: Diagnosis Date Anxiety Arthritis Chronic pain disorder COPD (chronic obstructive pulmonary disease) ([facility]) GERD (gastroesophageal reflux disease) Hypertension Pulmonary embolism ([facility]) 2019 Wears dentures Wears glasses Past Surgical [...] of Steps 5 Prior Function Level of [place] Independent with mobility and functional transfers Receives [...] 1-2 times per day PT Discharge Recommendations [facility] facility placement PT - Evaluation Status Complete [...] what SNF she wants to go to [facility]. Brother will transport. CM will complete assessment tomorrow However Referral to [facility] faxed to [phone] still need P.T. Eval and will need Written Rx's on Rounds for SNF Son notified not to grape picker the prescriptions Escribed to her pharmacy. Patient has not arrived to the IP floor for CM assessment Will be seen tomorrow Pain rated at 7 but respiratory rate as low as 9 per minute. Vital signs stable. Meets criteria for discharge/transfer from PACU. documented in this encounter [facility] 04-22-2022 Hospital course Narrative Coumadin-At discharge please follow up with your prescribing provider regarding follow up/labs and appointment. Please follow surgeon's discharge instructions and prescription directions. Surgeon' discharge instructions are in patient's folder- FOLLOW SURGEON INSTRUCTION SHEETS Contact Surgeon's office with any questions/concerns [phone] [facility] -PT/OT [...] (see Additional Instructions)LAST DOSE /12 MEDS PER [facility] REC Additional Instructions: Instructions to prepare [...] prior to your surgery. Check in at corporate receptionist desk [address] [place] [address]. If Outpatient, these additional instructions apply: An adult must stay with you the whole time you are here and drive you home. An adult must stay with you at home for 24 hours due to Anesthesia. If you have LUPE, you are required to stay 3 hours after your surgery before we can discharge you. documented in this encounter [facility] 04-20-2022 Procedure note Denies need to void. Pad beneath pt dry. [facility] 04-20-2022 Procedure note Denies need to void. 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 PROCEDURE: Left knee arthrotomy, excision of hardware from the patella, lateral retinacular release, proximal realignment of the extensor mechanism. SURGEON: Calos Smith MD MACHINE ROOM OPERATOR: Jelani Burgos PA-C. Mr. Burgos was required [...] cleared by general medical consultants, admitted to [facility], evaluated by the anesthesia team. She [...] 04/20/2022 15:47:00 LEANN/ROCIO documented in this encounter [facility] 04-20-2022 Consult note Associated Order (s): IP [...] found for this or any previous visit. [facility] 04-20-2022 Consult note Associated Order (s): IP [...] any previous visit. documented in this encounter [facility] 04-20-2022 Procedure note All medications administered per Whitley Kelley SN witnessed by myself. [facility] 04-20-[address] Smith notified of patient reporting history of MRSA a couple years ago, has an allergy to Vancomycin and Ancef, currently has Clindamycin ordered. No new orders. [facility] 04-20-2022 History and physical note History and Physical Update ( H&P completed within the previous thirty days ) I personally reviewed the History and Physical, interviewed and examined the patient prior to surgery. No changes have occurred in the patient's condition since the History and Physical was completed. [facility] 04-20-2022 History and physical note History and Physical Update ( H&P completed within the previous thirty days ) I personally reviewed the History and Physical, interviewed and examined the patient prior to surgery. No changes have occurred in the patient's condition since the History and Physical was completed. 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 PROCEDURE: Left knee arthrotomy, excision of hardware from the patella, lateral retinacular release, proximal realignment of the extensor mechanism. SURGEON: Calos Smith MD MACHINE ROOM OPERATOR: Jelani Burgos PA-C. Mr. Burgos was required [...] cleared by general medical consultants, admitted to [facility], evaluated by the anesthesia team. She [...] CALOS SMITH MD TT: 04/20/2022 15:47:00 LEANN/ROCIO [facility] 01-06-2022 History of Present illness Narrative All discharge criteria for discharge to home met, medically & surgically. BP u to WNL, tolerating up to bathroom w/o dizziness, lighthedeness. Report called to , station 2 questions answered. Notified Metoprolol and imdur held prior to discharge. Verbalized understanding. Plasma Flow activated for transport to [facility]. Per brother. Chemical ice packs for comfort promotion. Spoek with patient and her brother will be here between 9and 10am to transport to [facility]. Faxed HENS Rx' surgeon instruction sheets and AVS to [facility] at [phone]. Dischareg folder to nursing for discharge to [facility]. Rx's in folder for tramadol Oxycodone valium gabapentin restoril Surgeon instruction sheets AVS Transfer Summary Number for report to RN [phone] station 2 [facility] - [facility]ESS [...] mid left lung, likely atelectasis or scarring. [facility] thanks you for the opportunity to care for your patient. Workstation ID: [id number] - [id number] Dictated By: Garo Albarado MD 01/04/2021 11:41 Assigned Physician: Garo Albarado MD Reviewed and Electronically Signed By: Garo Albarado MD 01/04/2021 11:45 Transcribed by: STEW 01/04/2021 11:41 Technologist: BREAKER TENDER STRESS TEST No results found for this [...] 3 Days Post-Op: Right total knee arthroplasty 56380 - SD ARTHROPLASTY KNEE CONDYLE&PLATEAU MED/LAT CPTS W/WO PATELLA [...] Post-Op status post Right total knee arthroplasty 87527 - SD ARTHROPLASTY KNEE CONDYLE&PLATEAU MED/LAT CPTS W/WO PATELLA [...] 2 Days Post-Op: Right total knee arthroplasty 06005 - SD ARTHROPLASTY KNEE CONDYLE&PLATEAU MED/LAT CPTS W/WO PATELLA [...] Post-Op status post Right total knee arthroplasty 65753 - SD ARTHROPLASTY KNEE CONDYLE&PLATEAU MED/LAT CPTS W/WO PATELLA RESURFACING . - WBAT on the operative extremity - home coumadin, continue lovenox bridge, INR yesterday 0.9 for DVT ppx - PT - Follow-up in clinic in 6 weeks - Plan for discharge to Subacute Rehab Facility ([facility] or [facility]) when cleared by PT and medically stable Spoke to the patient and she called her brother who will be her transport and he wants to leave here by 0900am. Reached out to [facility] to complete Rx's for home meds. Pt sleeping soundly and did not rouse to name of knock. Will attempt again in am. Message left for Admissions Christy at [place] cell [phone] and office [phone] [facility] and they Metal Trades Instructor provided Admissions cell of Christy [phone] Called her and she still does not have an answer from the admissions team and D.O.N. she will call when she knows. Physical Therapy Treatment PT Discharge Recommendations: [facility] facility placement, Inpatient rehab facility placement Distance [...] Subjective Pt agreeable to treatment. Requesting this PEDIATRIC PHYSICAL THERAPY ASSISTANT move her LEs out of the bed. Education and instruction provided. Requesting bathroom urgently. Mobility noted below. At end of treatment pt sitting in chair awaiting lunch. Continue to follow until pt is d/c from [facility]. Vitals/Pain Pain Assessment Pain Assessment: 0-10 [...] PT Plan: Skilled PT PT Discharge Recommendations: [facility] facility placement, Inpatient rehab facility placement Goals: [...] plan to SNF. Awaiting to hear from [facility] for acceptance. Discussed transportation and her brother can transport. Encouraged IS as patient still needs to wean from oxygen. Message left for Admissions at [facility]. [phone] to see if they can accept. GENERAL [...] Pt would like a referral sent to [facility]. She will continue to review the list for choices 2 and 3 in the event [facility] cannot accept. Referral sent via [employer] Fax. 01/04/22 1531 Clinical Encounter Type Visited With Patient Time Spent 20 Minutes Type of Contact Introduction SPIRITUAL CARE ASSESSMENT Spiritual Care Assessment: Pt appropriate and coping peaceful and positive calderon and family are supportive Spiritual Intervention: Active listening Discuss coping style Hospitality provided Branscomb given Outcome: Pt shared feelings and values expressed gratitude Plan: PC will return at pt/family request. CM received IB call from Cori with [facility]. They do not have bed availability for patient until at least next Sunday. CM will print Medicare SNF list and provide to patient for subsequent choices. Physical Therapy Treatment PT Discharge Recommendations: [facility] facility placement, Inpatient rehab facility placement Distance [...] completed with mod/max assist. Mobility noted below. [place] pillow placed at right foot to assist in pt right LE positioning as pt position of comfort is with external rotation and knee slightly bent. Education provided. Continue as per PT POC until pt is d/c from [facility]. Vitals/Pain Pain Assessment Pain Assessment: 0-10 [...] PT Plan: Skilled PT PT Discharge Recommendations: [facility] facility placement, Inpatient rehab facility placement Goals: [...] comments found. Voice message left for Cori [phone] at [facility]. NN inquiring about the status of referral. CM phone number provided for a return call. Physical Therapy Treatment PT Discharge Recommendations: Inpatient rehab facility placement, [facility] facility placement Distance Ambulated (ft): 30 Device: [...] PT Discharge Recommendations: Inpatient rehab facility placement, [facility] facility placement Goals: Encounter Problems Encounter Problems [...] ID: [id number] - [id number] Dictated By: Garo Alabrado MD 01/04/2021 11:41 Assigned Physician: Garo Albarado MD Reviewed and Electronically Signed By: Garo Albarado MD 01/04/2021 11:45 Transcribed by: STEW 01/04/2021 11:41 Technologist: BREAKER TENDER STRESS TEST No results found for this [...] 1 Day Post-Op: Right total knee arthroplasty 53594 - SD ARTHROPLASTY KNEE CONDYLE&PLATEAU MED/LAT CPTS W/WO PATELLA [...] Post-Op status post Right total knee arthroplasty 40524 - SD ARTHROPLASTY KNEE CONDYLE&PLATEAU MED/LAT CPTS W/WO PATELLA [...] tomorrow to acquire update of needed. # [phone] PT note is in and this CM faxed the referral to the requested IPR for review Physical Therapy Physical Therapy Evaluation PT Discharge Recommendations: [facility] facility placement Distance Ambulated (ft): 30 Device: [...] R knee. Pt. Plans to discharge to [facility] as lives alone. Pt. Has 5 steps charity. Rails to enter home. Continue PT tx. Per POC. Patient Active Problem List Diagnosis Pain management Unilateral primary osteoarthritis, right knee S/P TKR (total knee replacement), right Past Medical History: Diagnosis Date Anxiety Arthritis COPD (chronic obstructive pulmonary disease) ([facility]) Hypertension Pulmonary embolism ([facility]) Wears dentures Wears glasses Past Surgical History: [...] Level of Function: Prior Function Level of [place]: Independent with mobility and functional transfers Receives [...] 1-2 times per day PT Discharge Recommendations: [facility] facility placement PT - Evaluation Status: Complete [...] home alone. Patient has requested [facility]. Patient states her brother will plan to provide transportation at time of discharge. CM was able to reach the admissions dept and the facility is an IPR, no swing bed/ TCU unit at this facility. Patient with multiple co morbidities and this CM will fax the referral for review to [phone] for review. Patient was educated a SNF [...] 11:45 Transcribed by: STEW 01/04/2021 11:41 Technologist: BREAKER TENDER STRESS TEST No results found for this [...] Discharge Planning County Information County of Residence [place] Patient Information Accompanied by/Relationship telephone call Patient arrived from? Home Support System Extended family Referral To Financial Resources Other (Comment) (no needs identified) Community Resources Other (Comment) (no needs identified) Services Requested DME potential needs No Destination/Placement [facility] Rehab Potential Good CM made telephone call to patient preoperatively to complete initial assessment for discharge planning. Home address and PCP reviewed. Home assessment completed. Patient lives alone in a 1 story home, 5 steps/handrail to enter. Bathroom: tub shower, shower chair. DME reviewed, denies need. Plan: discharge to [facility], brother to provide transportation. Covid testing education provided, patient will schedule. All questions/concerns addressed. documented in this encounter [facility] 01-05-2022 Hospital course Narrative Prescriptions for discharge [...] clinic regarding Labs and lovenox bridge. SNF SOLAR SYSTEM INSTALLER TO HELP MANAGE TO THERAPEUTIC LEVEL -Plasma [...] prior to your surgery. Check in at corporate receptionist desk [address], [place] [address]. Medication instructions per [facility] recc If Outpatient, these additional instructions apply: An adult must stay with you the whole time you are here and drive you home. An adult must stay with you at home for 24 hours due to Anesthesia. If you have LUPE, you are required to stay 3 hours after your surgery before we can discharge you. documented in this encounter [facility] 01-03-2022 Procedure note Family updated per phone. [facility] 01-03-2022 Procedure note Family updated per phone. Trinity Godinez 1955 ? Retention: Exchange Retention Policy (10 years) Expires: Sun01/01/2032 10:37 AM Retention: Exchange Retention Policy (10 years) Expires: Sun01/01/2032 10:37 AM [email or web address] EXTERNAL CAUTION: This email originated from outside the organization. Do not click links or open any attachments unless you recognize the sender and know the content is safe. If you believe this is spam, forward the message to [email or web address]. - [facility], A Member of [facility] OPERATIVE REPORT PATIENT NAME: Trinity Godinez DATE OF : 1955 [facility]#: [id number] SURGEON: Calos Smith MD, FACS DATE OF SERVICE: 01/03/2022 DATE OF SURGERY: 01/03/2022 PREOPERATIVE DIAGNOSIS: OA right knee (M17.11) POSTOPERATIVE DIAGNOSIS: OA right knee (M17.11) PROCEDURE: Primary Right Total Knee Arthroplasty (04275) Femoral Component: Heidi Biomet Vanguard Cruciate Retaining , Size: 62.5mm Tibial Component: Biomet Fixed I-Beam Stem Tibial Tray 75mm Patella Component: Biomet Series A Standard Patella , 31mm Polyethylene: Vanguard ArCom anterior stabilized 12mm Fixation: Biomet Bone Cement with 1g Vancomycin ATTENDING SURGEON: Calos Smith MD, FACS MACHINE ROOM OPERATOR: STEPHAN Diane DO INDICATIONS: Patient is a [...] awake, alert, and stable in good condition. MACHINE ROOM OPERATOR/ATTENDING PARTICIPATION: STEPHAN Diane DO assisted with proper [...] Calos Smith MD, FACS on 01/03/2022 10:28:45 [facility], A Member of [facility] OPERATIVE REPORT PATIENT NAME: Trinity Godinez DATE OF : 1955 [facility]#: [id number] SURGEON: Calos Smith MD, FACS DATE OF SERVICE: 01/03/2022 DATE OF SURGERY: 01/03/2022 REF [id number] LOT [id number] Vanguard Knee System 62.5 MM Uncoated knee femur prosthesis, metallic Use By 2031-11-13 () [id number] () [id number] (10) [id number] REF [id number] LOT [id number] Biomet Knee System 75 mm Uncoated knee tibia prosthesis, metallic Use By 2031-10-11 () [id number] (17 [id number] (10) [id number] REF [id number] LOT [id number] Vanguard Knee System 31 mm 8 mm Polyethylene patella prosthesis Use By 2026-10-10 () [id number] (40) [id number] (46) [id number] REF [id number] LOT [id number] Vanguard Knee System 12 MM 75 MM Tibial insert Use By 2026-12-22 () [id number] (63) [id number] (24) [id number] documented in this encounter [facility] 01-03-2022 Procedure note Trinity Godinez 1955 ? Retention: Exchange Retention Policy (10 years) Expires: Sun01/01/2032 10:37 AM Retention: Exchange Retention Policy (10 years) Expires: Sun01/01/2032 10:37 AM [email or web address] EXTERNAL CAUTION: This email originated from outside the organization. Do not click links or open any attachments unless you recognize the sender and know the content is safe. If you believe this is spam, forward the message to [email or web address] - [facility], A Member of [facility] OPERATIVE REPORT PATIENT NAME: Trinity Godinez DATE OF : 1955 [facility]#: [id number] SURGEON: Calos Smith MD, FACS DATE OF SERVICE: 01/03/2022 DATE OF SURGERY: 01/03/2022 PREOPERATIVE DIAGNOSIS: OA right knee (M17.11) POSTOPERATIVE DIAGNOSIS: OA right knee (M17.11) PROCEDURE: Primary Right Total Knee Arthroplasty (82487) Femoral Component: Heidi Biomet Vanguard Cruciate Retaining , Size: 62.5mm Tibial Component: Biomet Fixed I-Beam Stem Tibial Tray 75mm Patella Component: Biomet Series A Standard Patella , 31mm Polyethylene: Vanguard ArCom anterior stabilized 12mm Fixation: Biomet Bone Cement with 1g Vancomycin ATTENDING SURGEON: Calos Smith MD, FACS MACHINE ROOM OPERATOR: STEPHAN Diane DO INDICATIONS: Patient is a [...] awake, alert, and stable in good condition. MACHINE ROOM OPERATOR/ATTENDING PARTICIPATION: STEPHAN Diane DO assisted with proper [...] Calos Smith MD, FACS on 01/03/2022 10:28:45 [facility], A Member of [facility] OPERATIVE REPORT PATIENT NAME: Trinity Godinez DATE OF : 1955 [facility]#: [id number] SURGEON: Calos Smith MD, FACS DATE OF SERVICE: 01/03/2022 DATE OF SURGERY: 01/03/2022 REF [id number] LOT [id number] Vanguard Knee System 62.5 MM Uncoated knee femur prosthesis, metallic Use By 2031-11-13 () [id number] ( 175668 (99) [id number] REF 278534 LOT [id number] Biomet Knee System 75 mm Uncoated knee tibia prosthesis, metallic Use By 2031-10-11 () [id number] (06) 887432 (10) [id number] REF [id number] LOT [id number] Vanguard Knee System 31 mm 8 mm Polyethylene patella prosthesis Use By 2026-10-10 () [id number] (46) 157212 (92) [id number] REF [id number] LOT [id number] Vanguard Knee System 12 MM 75 MM Tibial insert Use By 2026-12-22 () [id number] (35) 985104 (80) [id number] [facility] 01-03-2022 History and physical note History and Physical Update ( H&P completed within the previous thirty days ) I personally reviewed the History and Physical, interviewed and examined the patient prior to surgery. No changes have occurred in the patient's condition since the History and Physical was completed. [facility] 01-03-2022 History and physical note History and Physical Update ( H&P completed within the previous thirty days ) I personally reviewed the History and Physical, interviewed and examined the patient prior to surgery. No changes have occurred in the patient's condition since the History and Physical was completed. documented in this encounter [facility] 10-23-2021 Note PROCEDURE: XR KNEE R T 4V or > HISTORY: Pain of right knee joint , chronic COMPARISON: XR knee right 06/20/2020 FINDINGS: BONES:Narrowing of all 3 joint spaces, greatest involving the anterior compartment. Irregular sclerosis of the tibial plateau suggesting possible hsrz-ul-hjla contact and weightbearing. SOFT TISSUES:No visible soft [...] authenticated by: GARO CASILLAS Date: 2021-10-23 07:14 [facility] 01-08-2021 Physician Hospital Discharge summary ATTENTION: CUTOVER PATIENT Please Note: This patient was being treated during the EHR conversion from [facility] to [facility] on 01/08/2021 There are two medical records for this patient; one in [facility] and one in [facility]. To see the remainder of the medical record, refer to the [facility] medical record. If you have questions, please contact the Health Information Management Department Patient Name: TRNIITY GODINEZ Patient [facility] 01-08-2021 History of Present illness Narrative Faxed orders to [facility] AT [phone] Discharge fodler to nursing for discharge to [facility]. Rx in folder tylenol tramadol oxycodone. Physical Therapy Physical Therapy Treatment Subjective: Pt declined to participate in PT treatment this afternoon, pt stated she would like to rest. Will continue to follow for skilled PT until D/C from [facility]. Problem: Mobility Goal: Patient will ambulate [...] Outcome: Progressing Message left for [facility] to see when they can accept the patient Spoke to Delroy at [facility] she does not want the patient to discharge uptil after 1500. Spoke with patient and Granddaughter is planning to be here at that time anyways. Instructed to take the Discharge folder to [facility] and give the entire folder to them [...] when up. May discharge to [facility] if OK with Gen Med and Dr [...] Immobilizer with out-of-bed. Discharge Plan: today to [facility]. LOS: 5 days VALARIE Gan Date: 01/08/2021 [...] will need to follow-up with her surveillance physician/life support technician post discharge Acute Post Hemorrhagic Anemia (D62) [...] from Last 1 Encounters: 01/06/21 30.41 kg/m @uxlast38@ No intake/output data recorded. No intake/output data [...] for: [facility] documented in this encounter [facility] 01-08-2021 Hospital course Narrative Patient will need an INR checked within 3 days of discharge to [facility]CF for warfarin management to be monitored by E[facility] physician. Also needs outpatient follow-up with nephrology for monitoring of kidney function. Please follow-up with your life support technician for ongoing surveillance of your kidney function. You should have an INR checked within 3 days of discharge to [facility] for management of your warfarin. documented in this encounter [facility] 01-08-2021 Hospital Discharge instructions Marsha Doan RN [...] alcohol or with certain drugs. This includes ovyz-bjg-hvjrdrb medicines. Make sure your doctor knows about [...] Where can you learn more? Go to [email or web address]/[email or web address] chart Enter P175 in the search box to learn more about Learning About Managing Acute Pain at Home. Current as of: July 08, 2020 Content Version: 13.0 [employer]. Care instructions adapted under license by your healthcare professional. If you have questions about a medical condition or this instruction, always ask your healthcare professional. [employer] disclaims any warranty or liability for your [...] Where can you learn more? Go to [email or web address]/Adaptive Technologiesmy chart Enter A180 in the search box to learn more about Learning About Opioids and Acute Pain. Current as of: July 08, 2020 Content Version: 13.0 [employer]. Care instructions adapted under license by your healthcare professional. If you have questions about a medical condition or this instruction, always ask your healthcare professional. [employer] disclaims any warranty or liability for your use of this information. The following attachments cannot be sent through Care Everywhere.Incentive Spirometer: General Info (Chinese)Constipation (Chinese)DVT (Deep Vein Thrombosis): General Info (Chinese)Fall Prevention (Chinese)Opioids: General Info (Chinese)documented in this encounter [facility] 01-07-2021 Hospital Progress note Patient: TRINITY GODINEZ MRN: [id number] Age: 65 years Sex: Female : 1955 Associated Diagnoses: None Author: Rogelio Leyva MD Assessment Assessment Diagnosis: Primary osteoarthritis of left knee (ZCJ59-NR M17.12, Working, Medical), Unilateral primary osteoarthritis, left [...] on telemetry and continue pulse oximetry Follow LPUE postop Protocol while hospitalized. Wean off oxygen [...] will need to follow-up with her surveillance physician/life support technician post discharge Acute Post Hemorrhagic Anemia (D62) [...] Supervising Physician Comments (more content not included)... [facility] 01-07-2021 Note ID NOW COVID-19_[facility]. [facility] 01-07-2021 Hospital Progress note Patient: TRINITY GODINEZ MRN: ([id number] Age: 65 years Sex: Female : 1955 [...] (01/05 05:) POSITIVE (01/05 05:) Unit # [id number] (01/05 10:56) [id number] (01/05 10:56) List of X-rays performed in last 36 hours No X-rays charted within the last 36 hours I have reviewed the available microbiologic data available at the time (more content not included)... [facility] 01-06-2021 Hospital Progress note Patient: TRINITY GODINEZ MRN: [id number] Age: 65 years Sex: Female : 1955 Associated Diagnoses: None Author: Rogelio Leyva MD Assessment Assessment Diagnosis: Primary osteoarthritis of left knee (ZJK34-EQ M17.12, Working, Medical), Unilateral primary osteoarthritis, left [...] as needed O2 at bedtime at the [facility]. Nocturnal/supine desaturation. History of congestive heart failure. [...] will need to follow-up with her surveillance physician/life support technician post discharge Acute Post Hemorrhagic Anemia (D62) [...] Documentation By: Consulting (more content not included)... [facility] 01-05-2021 Hospital Progress note Patient: TRINITY GODINEZ MRN: ([id number] Age: 65 years Sex: Female : 1955 Associated Diagnoses: None Author: Rogelio Leyva MD Assessment Assessment Diagnosis: Primary osteoarthritis of left knee (UYU50-CJ M17.12, Working, Medical), Unilateral primary osteoarthritis, left [...] to renal issue (more content not included)... [facility] 01-05-2021 Hospital Progress note Patient: TRINITY GODINEZ MRN: [id number] Age: 65 years Sex: Female : 1955 [...] (01/03 10:05) NEGATIVE (01/03 10:05) Unit # [id number] (01/05 06:44) [id number] (01/05) List of X-rays performed in l (more content not included)... [facility] 01-04-2021 Surgery Surgical operation note DICTATED [...] restrictor on the femur. We used a [place] size D tibial cone. Fixation is Biomet bone cement mixed with 1 g vancomycin. This is the gentamicin laden Biomet cement mixed with 1 g vancomycin. SURGEON: Calos Smith MD MACHINE ROOM OPERATOR: MD Satish Cheng MD assisted with proper [...] cleared by General Medical consultants, admitted to [facility]. At this point, she was seen [...] distally. We ap (more content not included)... [facility] 01-04-2021 Hospital Progress note Patient: TRINITY GODINEZ MRN: [id number] Age: 65 years Sex: Female : 1955 Associated Diagnoses: None Author: Rogelio Leyva MD Assessment Assessment Diagnosis: Primary osteoarthritis of left knee (VMS88-VG M17.12, Working, Medical), Unspecified osteoarthritis, unspecified site [...] 3.9 cm. Patient (more content not included)... [facility] 01-03-2021 History and physical note Patient: TRINITY GODINEZ MRN: ([id number] Age: 65 years Sex: Female : 1955 Associated Diagnoses: None Author: Rogelio Leyva MD Impression Diagnosis Chronic osteoarthritis (BKD63-XX M19.90, 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 Plan Osteoarthritis Left Knee/left [...] as needed O2 at bedtime at the [facility]. Nocturnal/supine desaturation. GERD - (K21.9) Chronic condition [...] will need to follow-up with her surveillance physician/life support technician post discharge Supervising Physician Comments Documentation By: [...] Dexamethasone 10 mg noted given Discussed with GENERATION MANAGER Subjective: Rates pain currently -none currently early PACU No nausea, vomiting No Chest pain, sob Past Medical History CHF HTN COPD O2 prn-while in [facility], her O2 sat drops when laying down [...] Tendencies: Surgical/Procedure Hx Revision of knee arthroplasty ([id number]) on 01/03/2021 at 65 Years. Comments: 01/03/2021 13:17 NEIDA Hinson RN , Zoya Berrios Left knee reimplantation Debridement ([id number]) on 11/19/2020 at 65 Years. Comments: 11/19/2020 [...] CBC,SR,Creat,CRP, Vanco Trough, fax to Dr. Hicks [phone] 3)IV ATB UNTIL reimplant 4)Call Dr. Hicks [...] for More Detail Patient: TRINITY GODINEZ MRN: ([facility])-[id number] Age: 65 years Sex: Female : 1955 Associated Diagnoses: None Author: Alicia Connell RN Impression Diagnosis Chronic osteoarthritis (FPG13-QG M19.90, 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 Plan Supervising Physician Comments Documentation By: Consulting Physician. Chief Complaint Postop Medical Co management History of Present Illness 65 y/o F who is S/P Left TK revision by Dr. Smith who requests post op medical management. Data obtained from pre op H&P. Past Medical History CHF HTN COPD O2 prn-while in [facility], her O2 sat drops when laying down Asthma LUPE Anxiety Depression GERD Recent mechanical fall with left sided rib fractures 11/20 h/o PE approximately 2 years ago-she reports unprovoked +COVID 19 05/23-she was hospitalized PICC line right UE-followed by Dr. Hicks infectious disease ASBAS d/t vancomycin-creat 4.5 then up to 5.9-now 1.0 Nephrology c/s Dr. Melendez Surgical History Anesthesia History Reactions (Self): Reactions (Family): Transfusion Reactions: Bleeding Tendencies: Surgical/Procedure Hx Debridement (SNOMED CT 21106481) performed by Ming Quinn MD , Calos [...] CBC,SR,Creat,CRP, Vanco Trough, fax to Dr. Hicks [phone] 3)IV ATB UNTIL reimplant 4)Call Dr. Hicks [...] last 36 hours documented in this encounter [facility] 01-03-2021 Mycobacterium sp Org specific cx Ql (Unsp spec) [facility] Microbiology PROCEDURE: Culture AFB and Stain SOURCE: [...] CONTRIBUTOR_SYSTEM, CO_PN NO ACID FAST BACILLI SEEN [facility] Comment on above: Performed By: #### 5 0941-4 ####[address] 01-03-2021 Mycobacterium sp Org specific cx Ql (Unsp spec) [facility] Microbiology PROCEDURE: Culture AFB and Stain SOURCE: [...] CONTRIBUTOR_SYSTEM, CO_PN NO ACID FAST BACILLI SEEN [facility] Comment on above: Performed By: #### 5 0941-4 ####[address] 01-03-2021 Mycobacterium sp Org specific cx Ql (Unsp spec) [facility] Microbiology PROCEDURE: Culture AFB and Stain SOURCE: [...] CONTRIBUTOR_SYSTEM, CO_PN NO ACID FAST BACILLI SEEN [facility] Comment on above: Performed By: #### 5 0941-4 ####[address] 01-03-2021 Mycobacterium sp Org specific cx Ql (Unsp spec) [facility] Microbiology PROCEDURE: Culture AFB and Stain SOURCE: [...] CONTRIBUTOR_SYSTEM, CO_PN NO ACID FAST BACILLI SEEN [facility] Comment on above: Performed By: #### 5 0941-4 ####[address] 01-03-2021 Bacteria identified Sterile body fluid culture Nom (Unsp spec) [facility] Microbiology PROCEDURE: Culture Body Fluid + Susceptibility [...] RARE POLYS No Epithelials NO ORGANISMS SEEN [facility] Comment on above: Performed By: #### 6 36-1 ####[address] 01-03-2021 Mycobacterium sp Org specific cx Ql (Unsp spec) [facility] Microbiology PROCEDURE: Culture AFB and Stain SOURCE: [...] CONTRIBUTOR_SYSTEM, CO_PN NO ACID FAST BACILLI SEEN [facility] Comment on above: Performed By: #### 5 0941-4 ####[address] 01-03-2021 Anesthesiology Preoperative evaluation and management note Patient: TRINITY GODINEZ MRN: ([id number] Age: 65 years Sex: Female : 1955 [...] Creat,CRP, Vanco Trough, fax to Dr. Hicks [phone])IV ATB UNTIL reimplant4)Call Dr. Hicks for F/C/S, N/V/D, rash, [phone])F/U with Dr Hicks in 4-5 weeks COMMENTS: [...] Yes. The p (more content not included)... [facility] 01-03-2021 Hospital Progress note Patient: TRINITY GODINEZ MRN: [id number] Age: 65 years Sex: Female : 1955 [...] intraneural local anesthetic injection throughout the procedure. [facility] 01-03-2021 Hospital Progress note Patient: TRINITY GODINEZ MRN: [facility])-[id number] Age: 65 years Sex: Female : 1955 [...] intraneural local anesthetic injection throughout the procedure. [facility] 01-03-2021 Procedure note DICTATED BY: CALOS [...] restrictor on the femur. We used a [place] size D tibial cone. Fixation is Biomet bone cement mixed with 1 g vancomycin. This is the gentamicin laden Biomet cement mixed with 1 g vancomycin. SURGEON: Calos Smith MD MACHINE ROOM OPERATOR: MD Satish Cheng MD assisted with proper [...] cleared by General Medical consultants, admitted to [facility]. At this point, she was seen [...] the tibia. We took our reamers from [employer] and created the cone for this enhanced [...] and we did close this over a #10-Kiswahili drain. We closed the subcutaneous tissues with 2-0 Vicryl and the skin with elvira. Applied a very bulky dressing and took the patient to the Post-Anesthesia Care Unit in satisfactory condition. Roentgenographs showed satisfactory position and alignment of components. TRINITY GODINEZ Birthdate: 1955 D/01/03/2021 16:37:19 T/01/03/2021 20:53:46 VOICE JOB ID: [id number] Ramy Santos thanks you for the opportunity to care for your patient. DID: [id number] documented in this encounter [facility] 11-23-2020 Surgery Surgical operation note DICTATED BY: [...] to proceed and she is admitted to [facility], evaluated by the anesthesiologist, adductor canal [...] cement from t (more content not included)... [facility] 11-22-2020 Hospital Progress note Patient: TRINITY GODINEZ MRN: ([facility])-[id number] [facility]: [id number] Age: 65 years Sex: Female : 1955 [...] N (11/22 13:) Device Identifier ID NOW COVID-19_[employer] EUA (11/22 13:) MPV 10.2 FL [...] Reactions (Selected) Sever (more content not included)... [facility] 11-22-2020 Hospital Progress note Patient: TRINITY GODINEZ MRN: [id number] Age: 65 years Sex: Female : 1955 Associated Diagnoses: None Author: Trey Martin MD Assessment Assessment Diagnosis: Osteoarthritis of left knee (RSJ48-AE M17.9, 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 Plan A medical consult [...] 2 / l (more content not included)... [facility] 11-22-2020 Note ID NOW COVID[facility] 11-22-2020 Physician Hospital Discharge summary CLINICAL SUMMARY Please take this summary document to your follow up appointments. [facility] 11/22/20 14:48 0156 [facility], [place]. [address] PATIENT INFORMATION Name: TRINITY GODINEZ Address: [address] [place] [address] Age: 65 Years Phone: [phone] : 1955 12:00 MRN: [id number] Sex: Female Race: White Ethnicity: Not Hispan/Lat Admitted From: Clinic or [facility] Medical Service: Orthopedic Surgery Nurse Unit/Bed: (AR) [facility] 0221-01 Admit Date: 11/19/2020 09:38 PCP: Levi Shine MD PHYSICIANS INVOLVED WITH CARE Attending Physicians: Ming Quinn MD , Calos - Orthopaedic Surg Admitting Physician: Ming Quinn MD , Calos - Orthopaedic Surg Primary Care Physician:Levi Shine MD,[facility], - Consults: Shailesh VEGA , Grabiel Maciel - Infectious Disease Andrew VEGA , Jose Carrasco - Internal Medicine Mario VEAG , Trey E - Internal Medicine Heather, [...] CBC,SR,Creat,CRP, Vanco Trough, fax to Dr. Hicks [phone] 3)IV ATB UNTIL reimplant 4)Call Dr. Hicks [...] CBC,SR,Creat,CRP, Vanco Trough, fax to Dr. Hicks [phone] 3)IV ATB UNTIL reimplant 4)Call Dr. Hicks for F/C/S, N/V/D, rash, 5)F/U with Dr Hicks in 4-5 weeks. Refills: 0., Call Dr. Hicks if released from your facility before IV therapy completed; Notify Dr. Hicks if Patient is admitted to the hospital. Comment Freetext M (more content not included)... [facility] 11-21-2020 Hospital Progress note Patient: TRINITY GODINEZ MRN: ([id number] Age: 65 years Sex: Female : 1955 Associated Diagnoses: None Author: Shailesh VEGA , Grabiel Bhatia 1. Knee: Status post re-radical debridement. Intraoperative cultures presently pending. 2. History of infection: Trying to obtain culture reports from her Hospital in [place] from last January. 3. Disposition: Anticipate discharge with a course of IV therapy. PICC line inserted. Anticipate placement as soon as tomorrow the next day. Graibel Hicks MD Infectious Diseases Supervising Physician Comments [...] Q4h, PRN: Itching/Pruri (more content not included)... [facility] 11-21-2020 Hospital Progress note Patient: TRINITY GODINEZ MRN: [id number] Age: 65 years Sex: Female : 1955 Associated Diagnoses: None Author: Andrew VEGA , Jose Carrasco Supervising Physician Comments Documentation By: Consulting Physician. Assessment Assessment Diagnosis: Osteoarthritis (FDK80-UX M19.90, 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 Plan Failed left TKR [...] lab test) CHEMISTRY (more content not included)... [facility] 11-20-2020 Hospital Progress note Patient: TRINITY GODINEZ MRN: [id number] [facility]: [id number] Age: 65 years Sex: Female : 1955 Associated Diagnoses: None Author: Andrew VEGA , Jose Carrasco Supervising Physician Comments Documentation By: Consulting Physician. Assessment Assessment Diagnosis: Osteoarthritis (ZXL18-YM M19.90, 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 Plan Failed left TKR [...] rounds 11/20. Continue to monitor on the BRUIN LUPE protocol. Obesity: BMI 33. follow per [...] 246 (11/20 04:2 (more content not included)... [facility] 11-19-2020 Hospital Progress note Patient: TRINITY GODINEZ MRN: ([id number] Age: 65 years Sex: Female : 1955 Associated Diagnoses: None Author: Montana Reynoso MD Assessment Assessment Diagnosis: Osteoarthritis (TIZ98-TX M19.90, 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 Plan Failed left TKR [...] 16:24:17 See Radiology Report for More Detail [facility] 11-19-2020 Mycobacterium sp Org specific cx Ql (Unsp spec) [facility] Microbiology PROCEDURE: Culture AFB and Stain SOURCE: [...] CONTRIBUTOR_SYSTEM, CO_PN NO ACID FAST BACILLI SEEN [facility] Comment on above: Performed By: #### 5 0941-4 ####[address] 11-19-2020 Mycobacterium sp Org specific cx Ql (Unsp spec) [facility]biology PROCEDURE: Culture AFB and Stain SOURCE: [...] CONTRIBUTOR_SYSTEM, CO_PN NO ACID FAST BACILLI SEEN [facility] Comment on above: Performed By: #### 5 0941-4 ####[address] 11-19-2020 Mycobacterium sp Org specific cx Ql (Unsp spec) [facility]biology PROCEDURE: Culture AFB and Stain SOURCE: [...] CONTRIBUTOR_SYSTEM, CO_PN NO ACID FAST BACILLI SEEN [facility] Comment on above: Performed By: #### 5 0941-4 ####[address] 11-19-2020 Mycobacterium sp Org specific cx Ql (Unsp spec) [facility] Microbiology PROCEDURE: Culture AFB and Stain SOURCE: [...] CONTRIBUTOR_SYSTEM, CO_PN NO ACID FAST BACILLI SEEN [facility] Comment on above: Performed By: #### 5 0941-4 ####[address] 11-19-2020 Anesthesiology Preoperative evaluation and management note Patient: TRINITY GODINEZ MRN: ([id number] Age: 65 years Sex: Female : 1955 [...] 05:37:52 by Sarah BERMUDEZ , Ange Sloan Bellwood Medications: ascorbic acid 1,000 mg = 1 [...] mL, 1,000 m (more content not included)... [facility] 11-17-2020 Hospital Progress note Patient: TRINITY GODINEZ MRN: [id number] Age: 65 years Sex: Female : 1955 [...] intrathecal local anesthetic injection throughout the procedure. [facility] 11-17-2020 Anesthesiology Preoperative evaluation and management note Patient: TRINITY GODINEZ MRN: [facility])-[id number] Age: 65 years Sex: Female : 1955 [...] 20 mL/hr, I (more content not included)... 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 Discharge instructions* Attachments The following attachments cannot be sent through Care Everywhere. * Acute Pain Management: General Info (Chinese) * Opioids: Safe Use (Chinese) * Fall Prevention (Chinese) * DVT (Deep Vein Thrombosis): Prevention: General Info (Chinese) * Constipation (Chinese) * Incentive Spirometer: General Info (Chinese) * warfarin (oral) (Chinese) * Enoxaparin (Lovenox) (Chinese) [facility]* Attachments The following attachments cannot be sent through Care Everywhere. * DVT (Deep Vein Thrombosis): Prevention: General Info (Chinese) * Incentive Spirometer: General Info (Chinese) * Fall Prevention (Chinese) * Opioids: General Info (Chinese) * Constipation (Chinese) * warfarin (oral) (Chinese) * enoxaparin (Chinese) * Antibiotics: General Info (Chinese) [facility] Auth/Cert Specialty Diagnoses / Procedures Referred By Mirella t Referred To Contact Diagnoses Unilateral primary osteoarthritis, right knee M17.11 Procedures SD ARTHROPLASTY KNEE CONDYLE&PLATEAU MED/LAT CPTS W/WO PATELLA RESURFACING SD ARTHROPLASTY KNEE CONDYLE&PLATEAU MED/LAT CPTS W/WO PATELLA RESURFACING Right total knee arthroplasty Calos Smith MD [address] [place] [address] Referral ID Status Reason Start Date Expiration Date Visits Re quested Visits Authorized [id number] 11/08/2021 1 1 [facility] for visit Narrative* Auth/Cert Specialty Diagnoses / Procedures Referred By Contac t Referred To Contact Diagnoses 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, initial encounter ([facility]) t84.093a Procedures SD RECONSTR DISLOCATING PATELLA W EXT REALIGNMENT AND/OR MUSCLE ADVMNT/RLS SD LATERAL RETINACULAR RELEASE OPEN Left knee extensor mechanism realignment with lateral retinacular release Calos Smith MD [address] [place] [address] [facility] [address] [place] [address] Referral ID Status Reason Start Date Expiration Date Visits Re quested Visits Authorized [id number] 1 1 [facility] Summary Purpose Family History No Family History [...] Findings Note Patient: TRINITY GODINEZ MRN : ([facility] [id number] Age: 65 years Sex: Female : 1955 [...] concluded. Note Patient: TRINITY GODINEZ MRN : ([id number] Age: 65 years Sex: Female : 1955 [...] section and content) DATE CREATED AUTHOR 11/28/2020 [facility] DATE CREATED AUTHOR AUTHOR'S ORGANIZ ATION 01/12/2021 [facility] DATE CREATED AUTHOR AUTHOR'S ORGANIZ ATION 03/04/2021 [facility] DATE CREATED AUTHOR AUTHOR'S ORGANIZ ATION 04/25/2021 [facility] DATE CREATED AUTHOR AUTHOR'S ORGANIZ ATION 04/30/2021 [facility] DATE CREATED AUTHOR AUTHOR'S ORGANIZ ATION 09/08/[address] [facility] DATE CREATED AUTHOR AUTHOR'S ORGANIZ ATION 02/21/2023 [facility] DATE CREATED AUTHOR AUTHOR'S ORGANIZ ATION 02/21/2023 [facility] Ordered Prescriptions (unrec ognized section and [...] education provided ) 08 (Given - Provider: eTresita Hirsch RN) 102 (Not Given - Provider: [...] Teresita Hirsch RN)2120 (Given - Provider: Richard Hernadnez RN) 0343 (Given - Provider: Richard Hernandez, AIDAN)0847 (Given - Provider: Teresita Hirsch RN)1250 (Given - Provider: Teresita Hirsch RN)1643 (Given - Provider: Teresita Hirsch RN)2041 (Given - Provider: Richard Henrandez, AIDAN) 0425 (Given - Provider: Richard Hernandez, [...] Provider: Marsha Nixon RN)2041 (Given - Provider: Fadmuo Pittman RN) 0847 (Given - Provider: Tracy [...] Care Teams (unrecognized sec tion and content) Purchasing Expeditor Relationship Specialty Start Date End Date Levi Shine MD [address] [place] [address] PCP - General 11/22/20 Purchasing Expeditor Relationship Specialty Start Date End Date Levi Shine MD [address] [place] [address] PCP - General 11/22/20 Purchasing Expeditor Relationship Specialty Start Date End Date Levi Shine MD [address] [place] [address] PCP - General 11/22/20 FOR RECORDS PERTAINING [...] BE BASED ON THE PRIMARY CLINICAL RECORDS. [facility] provides no warranty or guarantee of the accuracy or completeness of information in this document.
[2023-04-28 14:15] LABS: Basophils Absolute Auto 0.1 10^3/uL (0.0-0.1); Basophils Percent Auto 1.1 % (0.2-2.0); Eosinophils Percent Auto 0.4 % (0.9-7.0); Hematocrit 41.5 % (36.0-48.0); Hemoglobin 13.2 g/dL (12.0-16.0); Immature Granulocytes Abs Auto 0.03 10^3/uL (0.00-0.03); Immature Granulocytes Pct Auto 0.4 % (0.0-0.5); Lymphocytes Absolute Auto 1.4 10^3/uL (1.2-3.8); Lymphocytes Percent Auto 16.6 % (20.5-60.0); Mean Corpuscular HGB Conc 31.8 g/dL (29.9-35.2); Mean Corpuscular Hemoglobin 31.6 pg (26.7-34.0); Mean Corpuscular Volume 99.3 fL (81.0-99.0); Mean Platelet Volume 10.8 fL (9.5-13.5); Monocytes Absolute Auto 0.7 10^3/uL (0.3-0.8); Monocytes Percent Auto 8.3 % (1.7-12.0); Neutrophils Absolute Auto 6.1 10^3/uL (1.4-6.5); Neutrophils Percent Auto 73.2 % (43.0-75.0); Platelet Count 281 10^3/uL (150-450); Red Blood Count 4.18 10^6/uL (4.20-5.40); Red Cell Distribution Width 14.4 % (11.0-15.0); White Blood Count 8.4 10^3/uL (4.0-11.0)
[2023-04-28 14:26] LABS: BUN Creatinine Ratio 24.8; Calcium 9.5 mg/dL (8.5-10.1); Carbon Dioxide 20.4 mmol/L (21.0-32.0); Estimated GFR (African America >60 (>=60); Estimated GFR (Non-African Ame 50 (>=60); Glucose 108 mg/dL (74-106)
--- NOTE | 2023-04-28 14:29 | ED.GENADUL1 ---
HPI - General Adult General Chief complaint: Altered Mental Status Stated complaint: CONFUSION Time Seen by Provider: 04/28/23 13:44 Source: patient Mode of arrival: ambulance Limitations: altered mental status History of Present Illness HPI narrative: 67-year-old female presents because she wasn't acting herself. The patient was seen here recently and was diagnosed with a rib fracture. She was by herself. The injury occurred two days ago and her daughter talked to her more than twenty-four hours ago. When she checked on her she seemed confused and she was transported here. The patient isn't able to explain very well the way she is feeling. She does continue to have some pain in that rib area. There has been no new injury and no fever. Related Data Home Medications Medication Instructions Recorded Confirmed albuterol sulfate 90 mcg/actuation 2 inh inhalation Q6H PRN shortness 09/26/22 09/26/22 aerosol inhaler of breath or wheezing cetirizine 10 mg tablet 10 mg PO DAILY 09/26/22 09/26/22 fluticasone furoate 100 1 inh inhalation Q24H 09/26/22 09/26/22 mcg-vilanterol 25 mcg/dose inhalation powder (Breo Ellipta) gabapentin 600 mg tablet 1,200 mg PO .qhs 09/26/22 09/26/22 isosorbide mononitrate 60 mg 60 mg PO .q24 09/26/22 09/26/22 tablet,extended release 24 hr levofloxacin 750 mg tablet 750 mg PO Q24H 09/26/22 09/26/22 metoclopramide HCl 10 mg tablet 10 mg PO .COMPLEX 09/26/22 09/26/22 metoprolol succinate 100 mg 100 mg PO Q12H 09/26/22 09/26/22 tablet,extended release 24 hr ondansetron 4 mg disintegrating 4 mg translingual Q6H PRN nausea 09/26/22 09/26/22 tablet and vomiting pantoprazole 40 mg tablet,delayed 40 mg PO DAILY 09/26/22 09/26/22 release potassium chloride 10 mEq 10 meq PO BID 09/26/22 09/26/22 tablet,extended release(part/cryst) prednisone 20 mg tablet 20 mg PO .q8 09/26/22 09/26/22 promethazine 25 mg tablet 25 mg PO Q4H PRN nausea and 09/26/22 09/26/22 vomiting quetiapine 50 mg tablet 50 mg PO .qhs 09/26/22 09/26/22 tizanidine 4 mg tablet 4 mg PO Q12H PRN muscle spasticity 09/26/22 09/26/22 tramadol 50 mg tablet 50 mg PO Q8H PRN pain 09/26/22 09/26/22 hydrocodone 5 mg-acetaminophen 325 1 tab PO Q6H 04/02/23 04/02/23 mg tablet Allergies Allergy/AdvReac Type Severity Reaction Status Date / Time NSAIDS (Non-Steroidal Allergy Severe Anaphylaxis Verified 09/26/22 20:11 Anti-Inflamma vancomycin Allergy Verified 09/26/22 20:11 morphine AdvReac Intermediate Verified 04/02/23 14:55 Review of Systems ROS Narrative not obtainable, confused PFSH PFSH Social History Smoking status: Light tobacco smoker Exam Narrative Exam Narrative: Nurses note and vital signs reviewed and patient is not hypoxic. General: The patient appears in no apparent respiratory distress Skin: Warm, dry, no pallor noted. There is no rash noted. Head: Normocephalic, atraumatic Eye: Normal conjunctiva, no drainage Ears, Nose, Mouth, and Throat: oral mucosa is moist. Nares patent. Cardiovascular: Regular Rate and Rhythm Respiratory: Patient is in no distress, no accessory muscle use, lungs are clear to auscultation, no wheezing, rales or rhonchi. Breath sounds are equal. she has tenderness to palpation of the left lateral chest region but there is no crepitus. Back: non-tender, GI: Normal bowel sounds, no tenderness to palpation, no masses appreciated. No rebound, guarding, or rigidity noted. Musculoskeletal: The patient has no evidence of calf tenderness, no pitting edema, symmetrical pulses noted bilaterally Neurological: she knows her name but cannot tell me the year or where she has Psychiatric: Cooperative Constitutional Vital Signs, click to edit/add: Last Vital Signs Temp 98.4 F 04/28/23 13:44 Pulse 112 H 04/28/23 13:44 Resp 24 04/28/23 13:44 Pulse Ox 97 04/28/23 13:44 O2 Del Method Room Air 04/28/23 13:44 Course Vital Signs Vital signs: Vital Signs Temperature 98.4 F 04/28/23 13:44 Pulse Rate 112 H 04/28/23 13:44 Respiratory Rate 24 04/28/23 13:44 Pulse Oximetry 97 04/28/23 13:44 Oxygen Delivery Method Room Air 04/28/23 13:44 Temperature 98.4 F 04/28/23 13:44 Pulse Rate 112 H 04/28/23 13:44 Respiratory Rate 24 04/28/23 13:44 Pulse Oximetry 97 04/28/23 13:44 Oxygen Delivery Method Room Air 04/28/23 13:44 Medical Decision Making MDM Narrative Medical decision making narrative: The patient presents with altered mental status. Her workup so far is negative. She was recently put on baclofen and she's already on [place] and gabapentin. She will be admitted for observation. My clinical impression is that her symptoms are medication induced. Differential Diagnosis Differential Diagnosis: medication side effect, urinary tract infection, stroke, ICH Lab Data Lab results reviewed: Yes I reviewed the patient's lab results Labs: Lab Results 04/28/23 04/28/23 Range/Units 14:00 14:41 WBC 8.4 (4.0-11.0) 10^3/uL RBC 4.18 L (4.20-5.40) 10^6/uL Hgb 13.2 (12.0-16.0) g/dL Hct 41.5 (36.0-48.0) % MCV 99.3 H (81.0-99.0) fL MCH 31.6 (26.7-34.0) pg MCHC 31.8 (29.9-35.2) g/dL RDW 14.4 (11.0-15.0) % Plt Count 281 (150-450) 10^3/uL MPV 10.8 (9.5-13.5) fL Neut % (Auto) 73.2 (43.0-75.0) % Lymph % (Auto) 16.6 L (20.5-60.0) % Ogle % (Auto) 8.3 (1.7-12.0) % Eos % (Auto) 0.4 L (0.9-7.0) % Baso % (Auto) 1.1 (0.2-2.0) % Neut # (Auto) 6.1 (1.4-6.5) 10^3/uL Lymph # (Auto) 1.4 (1.2-3.8) 10^3/uL Ogle # (Auto) 0.7 (0.3-0.8) 10^3/uL Eos # (Auto) 0.0 (0.0-0.7) 10^3/uL Baso # (Auto) 0.1 (0.0-0.1) 10^3/uL Abs Immat Gran (auto) 0.03 (0.00-0.03) 10^3/uL Imm/Tot Granulo (auto) 0.4 (0.0-0.5) % PT 10.1 (9.0-11.6) sec INR 0.95 Sodium 141 (136-145) mmol/L Potassium 4.1 (3.5-5.1) mmol/L Chloride 108 H (98-107) mmol/L Carbon Dioxide 20.4 L (21.0-32.0) mmol/L Anion Gap 16.7 BUN 27.0 H (7.0-18.0) mg/dL Creatinine 1.09 H (0.55-1.02) mg/dL Est GFR ( Amer) >60 (>=60) Est GFR (Non-Af Amer) 50 L (>=60) BUN/Creatinine Ratio 24.8 Glucose 108 H (74-106) mg/dL Calcium 9.5 (8.5-10.1) mg/dL Urine Color Lt. yellow (YELLOW) Urine Clarity Clear (CLEAR) Urine pH 5.5 (5.0-9.0) Ur Specific [place] 1.025 (1.005-1.025) Urine Protein 30 A (NEG/TRACE) mg/dL Urine Glucose (UA) Negative (NEGATIVE) mg/dL Urine Ketones 15 A (NEGATIVE) mg/dL Urine Occult Blood Negative (NEGATIVE) Urine Nitrite Negative (NEGATIVE) Urine Bilirubin Small A (NEGATIVE) Urine Urobilinogen 0.2 (0.2-1.0) EU/dL Ur Leukocyte Esterase Trace A (NEGATIVE) Imaging Data Chest x-ray: Radiologist's impression: ITS Impressions Chest X-Ray 04/28/23 13:44 IMPRESSION: Slight increased density in the left mid to lower lung field consistent with atelectasis or an early infiltrate. No consolidation noted. Electronically authenticated by: ABDIAS WEN Date: 04/28/2023 14:[address] 04/28/23 13:45 IMPRESSION: No acute intracranial process is noted. Electronically authenticated by: CAROL CLARKE Date: 04/28/2023 14:32 Discharge Plan Discharge Chief Complaint: Altered Mental Status Clinical Impression: Medication side effect, Altered mental status Patient Disposition: Admitted as Observation Time of Disposition Decision: 15:19 Condition: Good
[2023-04-28 14:35] LABS: INR 0.95; Prothrombin Time 10.1 sec (9.0-11.6)
[2023-04-28 14:47] LABS: Anion Gap 16.7; Chloride 108 mmol/L (98-107); Potassium 4.1 mmol/L (3.5-5.1); Sodium 141 mmol/L (136-145)
[2023-04-28 15:01] LABS: Bilirubin Urine SMALL (NEGATIVE); Blood Urine NEGATIVE (NEGATIVE); Clarity Urine CLEAR (CLEAR); Color Urine LT. YELLOW (YELLOW); Glucose Urine UA NEGATIVE (NEGATIVE); Ketones Urine 15 mg/dL (NEGATIVE); Leukocyte Esterase Urine TRACE (NEGATIVE); Nitrite Urine NEGATIVE (NEGATIVE); Protein Urine 30 mg/dL (NEG/TRACE); Specific Gravity Urine 1.025 (1.005-1.025); Urobilinogen Urine 0.2 EU/dL (0.2-1.0); pH Urine 5.5 (5.0-9.0)
[2023-04-28 15:33] LABS: Bacteria Urine SMALL #/HPF (NONE SEEN); Mucus Urine NONE SEEN (NONE SEEN); RBC Urine NONE SEEN #/HPF (0-2); Squamous Epithelial Cell Urine FEW #/LPF (NONE/RARE)
--- OUTSIDE RECORDS SUMMARY | 2023-04-28 15:53 | XMS_ITS | CCD ---
Author Name Unknown Address [address] [place] [address] Organization [facility] Care Team Providers Care Duct Maker Name Role Phone CALOS SMITH JR. Referring Unavailable MARSHA HATCH Attending Unavailable Levi Shine MD Primary Care Provider [phone] KARAN SULLIVAN Attending Unavailable LEVI SHINE Primary Care Unavailable LEVI SHINE Referring Unavailable KARAN SULLIVAN Admitting Unavailable KARAN SULLIVAN Attending Unavailable LEVI SHINE Primary Care Unavailable LEVI SHINE Referring Unavailable KARAN SULLIVAN Admitting Unavailable Levi Shine MD Primary Care Provider [phone] Levi Shine MD Primary Care Provider [phone] RL .DR SIMS Attending Unavailable HOY ., [...] SIMS Primary Care Unavailable HOY ., DR SISM Consulting Unavailable HOY ., DR SIMS Admitting [...] Unavailable HOY, LEVI Primary Care Unavailable MIL GARZA~[id number], [place] SEA GARZA~[phone] MIL Referring Unavailable HOY, LEVI Primary Care [...] Translations: [CEFAZOLIN] Drug Allergy 1 Anaphylaxis [facility] (5 sources) Morphine; Translations: [MORPHINE] Drug Allergy 1 Hives, Itching [facility] (8 sources) NSAIDs; Translations: [NSAIDS (NON-STEROIDAL ANTI-INFLAMMATOR Y DRUG)] Drug Allergy 3 Anaphylaxis [facility] (5 sources) Vancomycin; Translations: [VANCOMYCIN] Drug Allergy 1 Other [facility] (1 source) Aspirin Drug Allergy 0 [facility] (3 sources) ceFAZolin Drug Allergy 5 [facility] (1 source) Morphine Drug Allergy 0 [facility] (2 sources) Morphine Drug Allergy 3 [facility] (2 sources) Vancomycin Drug Allergy [facility] Medications Current Medications Medication Drug Class(es) [...] 20 mg/ml oral solution (2 sources) Uncompetitive H-fbgbcv-L-aspartate Receptor Antagonist, Sigma-1 Agonist End: 12-29-2021 take [...] mg docusate sodium 50 mg / sennosides, residential 8.6 mg oral tablet (2 sources) Start: [...] Oxygen Therapy , Adult polyethylene glycol 3350 93740 mg powder for oral solution (6 sources) [...] administer immediately). take 1 capsule by mo [facility] twice daily potassium chloride (MICRO-K) 10 mEq [...] let 25 mg take 1 tablet by [facility] every six hours as needed promethazine (PHENERGAN) 25 mg tablet Take 1 tablet (25 mg total) by mouth every 6 (six) hours if needed for nausea or vomiting. 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; Translations: [OTH SHELTER CURRENT DRUG THERAPY] Onset: 08-25-2022 Episodic Other aftercare (1 source) prison (current) use of anticoagulants; Translations: [SHELTER CURRNT USE ANTICOAGULANTS] Onset: 08-25-2022 Episodic Other [...] 02-19-2023 C-Reactive Protein 1.0 mg/dL Normal 0.0-1.0 [facility] Comment on above: Performed By: #### 1 988-5 #### [facility] ([facility]) HOSPITAL LAB [address] [place] [address] ESR (Bld) [Velocity]on 02-19 Basophils (Bld) [#/Vol] 0.09 10*3/uL Normal 0.00-0.20 [facility] Comment on above: Performed By: #### 5 75-1 #### [facility] [address] [place] [address] Basophils/100 WBC (Bld) 1.1 % Normal 0.0-2.0 [facility] Comment on above: Performed By: #### 5 75-1 #### [facility] [place] [facility] [address] [place] [address] Eosinophils (Bld) [#/Vol] 0.17 10*3/uL Normal 0.00-0.70 [facility] Comment on above: Performed By: #### 5 75-1 #### [facility] [place] [facility] [address] [place] [address] Eosinophils/100 WBC (Bld) 2.0 % Normal 0.0-7.0 [facility] Comment on above: Performed By: #### 75-1 #### [facility] [place] [facility] [address] [place] [address] Erythrocyte distribution width (RBC) [Ratio] 13.5 % Normal 11.0-14.8 [facility] Comment on above: Performed By: #### 75-1 #### [facility] [address] [place] [address] Hematocrit (Bld) [Volume fraction] 39.9 % Normal 34.3-47.9 [facility] Comment on above: Performed By: #### 5 75-1 #### [facility] [place] [facility] [address] [place] [address] Hemoglobin (Bld) [Mass/Vol] 12.7 g/dL Normal 12.0-16.0 [facility] Comment on above: Performed By: #### 5 75-1 #### [facility] [place] [facility] [address] [place] [address] Immature granulocytes (Bld) [#/Vol] 0.02 10*3/uL Normal 0.00-0.10 [facility] Comment on above: Performed By: #### 5 75-1 #### [facility] [place] [facility] [address] [place] [address] Immature granulocytes/100 WBC (Bld) 0.2 % Normal 0.0-1.2 [facility] Comment on above: Performed By: #### 5 75-1 #### [facility] [place] [facility] [address] [place] [address] Lymphocytes (Bld) [#/Vol] 2.55 10*3/uL Normal 1.00-4.80 [facility] Comment on above: Performed By: #### 5 75-1 #### [facility] [place] [facility] [address] [place] [address] Lymphocytes/100 WBC (Bld) 30.6 % Normal 17.9-49.6 [facility] Comment on above: Performed By: #### 5 75-1 #### [facility] [address] [place] [address] MCH 31.4 pcg Normal 27.0-34.0 [facility] Comment on above: Performed By: #### 5 75-1 #### [facility] [address] [place] [address] MCHC (RBC) [Mass/Vol] 31.8 g/dL Normal 30.8-35.3 [facility] Comment on above: Performed By: #### 5 75-1 #### [facility] ([facility]) LAB [address] [place] [address] MCV (RBC) [Entitic vol] 98.5 fL High 80.0-97.0 [facility] Comment on above: Performed By: #### 5 75-1 #### [facility] [place] [facility] [address] [place] [address] Monocytes (Bld) [#/Vol] 0.57 10*3/uL Normal 0.00-0.90 [facility] Comment on above: Performed By: #### 5 75-1 #### [facility] [place] [facility] [address] [place] [address] Monocytes/100 WBC (Bld) 6.9 % Normal 0.0-12.0 [facility] Comment on above: Performed By: #### 5 75-1 #### [facility] [place] [facility] [address] [place] [address] Neutrophils Absolute 4.92 K/mcL Normal 1.80-7.70 Spike benavides [facility] Comment on above: Performed By: #### 5 75-1 #### [facility] [place] [facility] [address] [place] [address] Neutrophils/100 WBC (Bld) 59.2 % Normal 38.1-75.5 [facility] Comment on above: Performed By: #### 5 75-1 #### [facility] [place] [facility] [address] [place] [address] Platelet mean volume (Bld) [Entitic vol] 11.5 fL Normal 6.2-12.1 [facility] Comment on above: Performed By: #### 5 75-1 #### [facility] [place] [facility] [address] [place] [address] Platelets (Bld) [#/Vol] 262 10*3/uL Normal 142-424 [facility] Comment on above: Performed By: #### 5 75-1 #### [facility] [place] [facility] [address] [place] [address] RBC (Bld) [#/Vol] 4.05 10*6/uL Normal 3.74-5.34 [facility] Comment on above: Performed By: #### 5 75-1 #### [facility] [place] [facility] [address] [place] [address] WBC (Bld) [#/Vol] 8.3 10*3/uL Normal 4.6-10.2 [facility] Comment on above: Performed By: #### 5 75-1 #### [facility] [place] [facility] [address] [place] [address] CBC AUTO DIFFon 08-30-2022 BASO # 0.1 103/ul Normal 0.0-0.1 [facility] Comment on above: Performed By: #### C BC #### [facility] [address] [place] [address] Dr. Jeffrey Thomas Basophils/100 WBC (Bld) 0.9 % Normal 0.2-2.0 [facility] Comment on above: Performed By: #### C BC #### [facility] [address] [place] [address] Dr. Jeffrey Thomas EO # 0.2 103/ul Normal 0.0-0.7 [facility] Comment on above: Performed By: #### C BC #### [facility] [address] [place] [address] Dr. Jeffrey Thomas Eosinophils/100 WBC (Bld) 3.9 % Normal 0.9-7.0 [facility] Comment on above: Performed By: #### C BC #### [facility] [address] [place] [address] Dr. Jeffrey Thomas Erythrocyte distribution width (RBC) [Ratio] 14.6 % Normal 11.0-15.0 [facility] Comment on above: Performed By: #### C BC #### [facility] [address] [place] [address] Dr. Jeffrey Thomas Hematocrit (Bld) [Volume fraction] 32.7 % Critically low 36.0-48.0 [facility] Comment on above: Performed By: #### C BC #### [facility] [address] [place] [address] Dr. Jeffrey Thomas Hemoglobin (Bld) [Mass/Vol] 10.3 g/dL Critically low 12.0-16.0 [facility] Comment on above: Performed By: #### C BC #### [facility] [address] [place] [address] Dr. Jeffrey Thomas IG # 0.01 10e3/ul Normal 0.00-0.03 [facility] Comment on above: Performed By: #### C BC #### [facility] [address] [place] [address] Dr. Jeffrey Thomas IG % 0.2 % Normal 0.0-0.5 [facility] Comment on above: Performed By: #### C BC #### [facility] [address] [place] [address] Dr. Jeffrey Thomas LYMPH # 1.7 103/ul Normal 1.2-3.8 [facility] Comment on above: Performed By: #### C BC #### [facility] [address] [place] [address] Dr. Jeffrey Thomas Lymphocytes/100 WBC (Bld) 30.8 % Normal 20.5-60.0 [facility] Comment on above: Performed By: #### C BC #### [facility] [address] [place] [address] Dr. Jeffrey Thomas MANUAL DIFF REQ NO Normal [facility] Comment on above: Performed By: #### C BC #### [facility] [address] [place] [address] Dr. Jeffrey Thomas MCH (RBC) [Entitic mass] 30.2 pg Normal 26.7-34.0 [facility] Comment on above: Performed By: #### C BC #### [facility] [address] [place] [address] Dr. Jeffrey hTomas MCHC (RBC) [Mass/Vol] 31.5 g/dL Normal 29.9-35.2 [facility] Comment on above: Performed By: #### C BC #### [facility] [address] [place] [address] Dr. Jeffrey Thomas MCV (RBC) [Entitic vol] 95.9 fL Normal 81.0-99.0 [facility] Comment on above: Performed By: #### C BC #### [facility] [address] [place] [address] Dr. Jeffrey Thomas MONO # 0.4 103/ul Normal 0.3-0.8 [facility] Comment on above: Performed By: #### C BC #### [facility] [address] [place] [address] Dr. Jeffrey Thomas Monocytes/100 WBC (Bld) 7.8 % Normal 1.7-12.0 [facility] Comment on above: Performed By: #### C BC #### [facility] [address] [place] [address] Dr. Jeffrey Thomas NEUT # 3.2 103/ul Normal 1.4-6.5 [facility] Comment on above: Performed By: #### C BC #### [facility] [address] [place] [address] Dr. Jeffrey Thomas Neutrophils/100 WBC (Bld) 56.4 % Normal 43.0-75.0 [facility] Comment on above: Performed By: #### C BC #### [facility] [address] [place] [address] Dr. Jeffrey Thomas Platelet mean volume (Bld) [Entitic vol] 12.9 fL Normal 9.5-13.5 [facility] Comment on above: Performed By: #### C BC #### [facility] [address] [place] [address] Dr. Jeffrey Thomas PLT 149 103/ul Critically low 150-450 [facility] Comment on above: Performed By: #### C BC #### [facility] [address] [place] [address] Dr. Jeffrey Thomas RBC 3.41 106/ul Critically low 4.20-5.40 [facility] Comment on above: Performed By: #### C BC #### [facility] [address] [place] [address] Dr. Jeffrey Thomas WBC 5.6 103/ul Normal 4.0-11.0 [facility] Comment on above: Performed By: #### C BC #### [facility] [address] [place] [address] Dr. Jeffrey Thomas HEPATITIS PANEL, [facility] HBsAg Screen Negative Normal Negative [facility] Comment on above: Performed By: #### C MP #### [facility] [address] [place] [address] Dr. Jeffrey Thomas HCV AB Non-Reactive Normal Non Reactive [facility] Comment on above: Performed By: #### C MP #### [facility] [address] [place] [address] Dr. Jeffrey Thomas Hep A Ab, IgM Negative Normal Negative [facility] Comment on above: Performed By: #### C MP #### [facility] [address] [place] [address] Dr. Jeffrey Thomas Hep B Core Ab, IgM Negative Normal Negative [facility] Comment on above: Performed By: #### C MP #### [facility] [address] [place], [place] [address] Dr. Jeffrey Thomas [place] HEPATOBILIARY SCAN W [...] by: GARO CASILLAS Date: 2022-08-30 07:23 Normal [facility] PROF 14(COMP METB)on 023 Albumin [Mass/Vol] 2.5 g/dL Critically low 3.4-5.0 [facility] Comment on above: Performed By: #### T 4LC #### [facility] [address] [place] [address] Dr. Jeffrey Thomas Albumin/Globulin [Mass ratio] 0.9 {ratio} Normal [facility] Comment on above: Performed By: #### T 4LC #### [facility] [address] [place] [address] Dr. Jeffrey Thomas ALP [Catalytic activity/Vol] 97 U/L Normal 46-116 [facility] Comment on above: Performed By: #### T 4LC #### [facility] [address] [place] [address] Dr. Jeffrey Thomas ALT [Catalytic activity/Vol] 39 U/L Normal 14-59 [facility] Comment on above: Performed By: #### T 4LC #### [facility] [address] [place] [address] Dr. Jeffrey Thomas Anion gap [Moles/Vol] 12.9 mmol/L Normal [facility] Comment on above: Performed By: #### T 4LC #### [facility] [address] [place] [address] Dr. Jeffrey Thomas AST [Catalytic activity/Vol] 19 U/L Normal 15-37 [facility] Comment on above: Performed By: #### T 4LC #### [facility] [address] [place] [address] Dr. Jeffrey Thomas Bilirubin [Mass/Vol] 0.2 mg/dL Normal 0.2-1.0 [facility] Comment on above: Performed By: #### T 4LC #### [facility] [address] [place] [address] Dr. Jeffrey Thomas Calcium [Mass/Vol] 8.2 mg/dL Critically low 8.5-10.1 [facility] Comment on above: Performed By: #### T 4LC #### [facility] [address] [place] [address] Dr. Jeffrey Thomas Chloride [Moles/Vol] 111 mmol/L Critically high 98-107 [facility] Comment on above: Performed By: #### T 4LC #### [facility] [address] [place] [address] Dr. Jeffrey Thomas CO2 [Moles/Vol] 24.2 mmol/L Normal 21.0-32.0 [facility] Comment on above: Performed By: #### T 4LC #### [facility] [address] [place] [address] Dr. Jeffrey Thomas Creatinine [Mass/Vol] 1.05 mg/dL Critically high 0.55-1.02 [facility] Comment on above: Performed By: #### T 4LC #### [facility] [address] [place] [address] Dr. Jeffrey Thomas EGFR-AF LEBANESE >60 Normal >=60 [facility] Comment on above: Performed By: #### T 4LC #### [facility] [address] [address] [address] Jeffrey Thomas EGFR-NON AF LEBANESE 53 mL/min/1.73m2 Critically low >=60 [facility] Comment on above: Performed By: #### T 4LC #### [facility] [address] [address] [address] Jeffrey Thomas Globulin (S) [Mass/Vol] 2.7 g/dL Normal [facility] Comment on above: Performed By: #### T 4LC #### [facility] [address] [address] [address] Jeffrey Thomas Glucose [Mass/Vol] 109 mg/dL Critically high 74-106 [facility] Comment on above: Performed By: #### T 4LC #### [facility] [address] [address] [address] Jeffrey Thomas Potassium [Moles/Vol] 4.1 mmol/L Normal 3.5-5.1 [facility] Comment on above: Performed By: #### T 4LC #### [facility] [address] [place] [address] Dr. Jeffrey Thomas Protein [Mass/Vol] 5.2 g/dL Critically low 6.4-8.2 [facility] Comment on above: Performed By: #### T 4LC #### [facility] [address] [address] [address] Jeffrey Thomas Sodium [Moles/Vol] 144 mmol/L Normal 136-145 [facility] Comment on above: Performed By: #### T 4LC #### [facility] [address] [address] [address] Jeffrey Thomas Urea nitrogen [Mass/Vol] 11.0 mg/dL Normal 7.0-18.0 [facility] Comment on above: Performed By: #### T 4LC #### [facility] [address] [address] [address] Jeffrey Thomas Urea nitrogen/Creatinine [Mass ratio] 10.5 mg/mg Normal [facility] Comment on above: Performed By: #### T 4LC #### [facility] [address] [place] [address] Dr. Jeffrey Thomas CBC AUTO DIFFon 08-29-2022 BASO # 0.1 103/ul Normal 0.0-0.1 [facility] Comment on above: Performed By: #### T 4LC #### [facility] [address] [place] [address] Dr. Jeffrey Thomas Basophils/100 WBC (Bld) 1.2 % Normal 0.2-2.0 [facility] Comment on above: Performed By: #### T 4LC #### [facility] [address] [place] [address] Dr. Jeffrey Thomas EO # 0.2 103/ul Normal 0.0-0.7 [facility] Comment on above: Performed By: #### T 4LC #### [facility] [address] [place] [address] Dr. Jeffrey Thomas Eosinophils/100 WBC (Bld) 4.1 % Normal 0.9-7.0 [facility] Comment on above: Performed By: #### T 4LC #### [facility] [address] [place] [address] Dr. Jeffrey Thomas Erythrocyte distribution width (RBC) [Ratio] 14.6 % Normal 11.0-15.0 [facility] Comment on above: Performed By: #### T 4LC #### [facility] [address] [place] [address] Dr. Jeffrey Thomas Hematocrit (Bld) [Volume fraction] 33.6 % Critically low 36.0-48.0 [facility] Comment on above: Performed By: #### T 4LC #### [facility] [address] [place] [address] Dr. Jeffrey Thomas Hemoglobin (Bld) [Mass/Vol] 10.3 g/dL Critically low 12.0-16.0 [facility] Comment on above: Performed By: #### T 4LC #### [facility] [address] [place] [address] Dr. Jeffrey Thomas IG # 0.01 10e3/ul Normal 0.00-0.03 [facility] Comment on above: Performed By: #### T 4LC #### [facility] [address] [place] [address] Dr. Jeffrey Thomas IG % 0.2 % Normal 0.0-0.5 [facility] Comment on above: Performed By: #### T 4LC #### [facility] [address] [place] [address] Dr. Jeffrey Thomas LYMPH # 1.7 103/ul Normal 1.2-3.8 [facility] Comment on above: Performed By: #### T 4LC #### [facility] [address] [place] [address] Dr. Jeffrey Thomas Lymphocytes/100 WBC (Bld) 34.4 % Normal 20.5-60.0 [facility] Comment on above: Performed By: #### T 4LC #### [facility] [address] [place] [address] Dr. Jeffrey Thomas MANUAL DIFF REQ NO Normal [facility] Comment on above: Performed By: #### T 4LC #### [facility] [address] [place] [address] Dr. Jeffrey Thomas MCH (RBC) [Entitic mass] 29.5 pg Normal 26.7-34.0 [facility] Comment on above: Performed By: #### T 4LC #### [facility] [address] [place] [address] Dr. Jeffrey Thomas MCHC (RBC) [Mass/Vol] 30.7 g/dL Normal 29.9-35.2 [facility] Comment on above: Performed By: #### T 4LC #### [facility] [address] [place] [address] Dr. Jeffrey Thomas MCV (RBC) [Entitic vol] 96.3 fL Normal 81.0-99.0 [facility] Comment on above: Performed By: #### T 4LC #### [facility] [address] [place] [address] Dr. Jeffrey Thomas MONO # 0.4 103/ul Normal 0.3-0.8 [facility] Comment on above: Performed By: #### T 4LC #### [facility] [address] [place] [address] Dr. Jeffrey Thomas Monocytes/100 WBC (Bld) 8.2 % Normal 1.7-12.0 [facility] Comment on above: Performed By: #### T 4LC #### [facility] [address] [place] [address] Dr. Jeffrey Thomas NEUT # 2.5 103/ul Normal 1.4-6.5 [facility] Comment on above: Performed By: #### T 4LC #### [facility] [address] [place] [address] Dr. Jeffrey Thomas Neutrophils/100 WBC (Bld) 51.9 % Normal 43.0-75.0 [facility] Comment on above: Performed By: #### T 4LC #### [facility] [address] [place] [address] Dr. Jeffrey Thomas Platelet mean volume (Bld) [Entitic vol] 12.5 fL Normal 9.5-13.5 [facility] [facility] Comment on above: Performed By: #### T 4LC #### [facility] [address] [place] [address] Dr. Jeffrey Thomas PLT 157 103/ul Normal 150-450 [facility] Comment on above: Performed By: #### T 4LC #### [facility] [address] [place] [address] Dr. Jeffrey Thomas RBC 3.49 106/ul Critically low 4.20-5.40 [facility] Comment on above: Performed By: #### T 4LC #### [facility] [address] [place] [address] Dr. Jeffrey Thomas WBC 4.9 103/ul Normal 4.0-11.0 [facility] Comment on above: Performed By: #### T 4LC #### [facility] [address] [place] [address] Dr. Jeffrey Thomas PROF 14(COMP METB)on 023 Albumin [Mass/Vol] 2.6 g/dL Critically low 3.4-5.0 [facility] Comment on above: Performed By: #### C MP #### [facility] [address] [place] [address] Dr. Jeffrey Thomas Albumin/Globulin [Mass ratio] 1.0 {ratio} Normal [facility] Comment on above: Performed By: #### C MP #### [facility] [address] [address] [address] Jeffrey Thomas ALP [Catalytic activity/Vol] 94 U/L Normal 46-116 [facility] Comment on above: Performed By: #### C MP #### [facility] [address] [place] [address] Dr. Jeffrey Thomas ALT [Catalytic activity/Vol] 53 U/L Normal 14-59 [facility] Comment on above: Performed By: #### C MP #### [facility] [address] [place] [address] Dr. Jeffrey Thomas Anion gap [Moles/Vol] 11.2 mmol/L Normal [facility] Comment on above: Performed By: #### C MP #### [facility] [address] [place] [address] Dr. Jeffrey Thomas AST [Catalytic activity/Vol] 26 U/L Normal 15-37 [facility] Comment on above: Performed By: #### C MP #### [facility] [address] [place] [address] Dr. Jeffrey Thomas Bilirubin [Mass/Vol] 0.2 mg/dL Normal 0.2-1.0 [facility] Comment on above: Performed By: #### C MP #### [facility] [address] [place] [address] Dr. Jeffrey Thomas Calcium [Mass/Vol] 8.2 mg/dL Critically low 8.5-10.1 [facility] Comment on above: Performed By: #### C MP #### [facility] [address] [place] [address] Dr. Jeffrey Thomas Chloride [Moles/Vol] 114 mmol/L Critically high 98-107 [facility] Comment on above: Performed By: #### C MP #### [facility] [address] [address] [address] Jeffrey Thomas CO2 [Moles/Vol] 23.1 mmol/L Normal 21.0-32.0 [facility] Comment on above: Performed By: #### C MP #### [facility] [address] [address] [address] Jeffrey Thomas Creatinine [Mass/Vol] 0.95 mg/dL Normal 0.55-1.02 [facility] Comment on above: Performed By: #### C MP #### [facility] [address] [address] [address] Jeffrey Thomas EGFR-AF LEBANESE >60 Normal >=60 [facility] Comment on above: Performed By: #### C MP #### [facility] [address] [address] [address] Jeffrey Thomas EGFR-NON AF LEBANESE 59 mL/min/1.73m2 Critically low >=60 [facility] Comment on above: Performed By: #### C MP #### [facility] [address] [address] [address] Jeffrey Thomas Globulin (S) [Mass/Vol] 2.6 g/dL Normal [facility] Comment on above: Performed By: #### C MP #### [facility] [address] [address] [address] Jeffrey Thomas Glucose [Mass/Vol] 87 mg/dL Normal 74-106 [facility] Comment on above: Performed By: #### C MP #### [facility] [address] [address] [address] Jeffrey Thomas Potassium [Moles/Vol] 4.3 mmol/L Normal 3.5-5.1 [facility] Comment on above: Performed By: #### C MP #### [facility] [address] [address] [address] Jeffrey Thomas Protein [Mass/Vol] 5.2 g/dL Critically low 6.4-8.2 [facility] Comment on above: Performed By: #### C MP #### [facility] [address] [place] [address] Dr. Jeffrey Thomas Sodium [Moles/Vol] 144 mmol/L Normal 136-145 [facility] Comment on above: Performed By: #### C MP #### [facility] [address] [place] [address] Dr. Jeffrey Thomas Urea nitrogen [Mass/Vol] 10.0 mg/dL Normal 7.0-18.0 [facility] Comment on above: Performed By: #### C MP #### [facility] [address] [place] [address] Dr. Jeffrey Thomas Urea nitrogen/Creatinine [Mass ratio] 10.5 mg/mg Normal [facility] Comment on above: Performed By: #### C MP #### [facility] [address] [place] [address] Dr. Jeffrey Thomas CBC AUTO DIFFon 08-28-2022 BASO # 0.1 103/ul Normal 0.0-0.1 [facility] Comment on above: Performed By: #### T 4LC #### [facility] [address] [place] [address] Dr. Jeffrey Thomas Basophils/100 WBC (Bld) 1.2 % Normal 0.2-2.0 [facility] Comment on above: Performed By: #### T 4LC #### [facility] [address] [place] [address] Dr. Jeffrey Thomas EO # 0.3 103/ul Normal 0.0-0.7 [facility] Comment on above: Performed By: #### T 4LC #### [facility] [address] [place] [address] Dr. Jeffrey Thomas Eosinophils/100 WBC (Bld) 4.4 % Normal 0.9-7.0 [facility] Comment on above: Performed By: #### T 4LC #### [facility] [address] [place] [address] Dr. Jeffrey Thomas Erythrocyte distribution width (RBC) [Ratio] 14.8 % Normal 11.0-15.0 [facility] Comment on above: Performed By: #### T 4LC #### [facility] [address] [address] [address] Jeffrey Thomas Hematocrit (Bld) [Volume fraction] 33.5 % Critically low 36.0-48.0 [facility] Comment on above: Performed By: #### T 4LC #### [facility] [address] [place] [address] Dr. Jeffrey Thomas Hemoglobin (Bld) [Mass/Vol] 10.1 g/dL Critically low 12.0-16.0 [facility] Comment on above: Performed By: #### T 4LC #### [facility] [address] [place] [address] Dr. Jeffrey Thomas IG # 0.01 10e3/ul Normal 0.00-0.03 [facility] Comment on above: Performed By: #### T 4LC #### [facility] [address] [place] [address] Dr. Jeffrey Thomas IG % 0.2 % Normal 0.0-0.5 [facility] Comment on above: Performed By: #### T 4LC #### [facility] [address] [place] [address] Dr. Jeffrey Thomas LYMPH # 2.1 103/ul Normal 1.2-3.8 [facility] Comment on above: Performed By: #### T 4LC #### [facility] [address] [place] [address] Dr. Jeffrey Thomas Lymphocytes/100 WBC (Bld) 35.1 % Normal 20.5-60.0 [facility] Comment on above: Performed By: #### T 4LC #### [facility] [address] [place] [address] Dr. Jeffrey Thomas MANUAL DIFF REQ NO Normal [facility] Comment on above: Performed By: #### T 4LC #### [facility] [address] [place] [address] Dr. Jeffrey Thomas MCH (RBC) [Entitic mass] 29.6 pg Normal 26.7-34.0 [facility] Comment on above: Performed By: #### T 4LC #### [facility] [address] [place] [address] Dr. Jeffrey Thomas MCHC (RBC) [Mass/Vol] 30.1 g/dL Normal 29.9-35.2 [facility] Comment on above: Performed By: #### T 4LC #### [facility] [address] [place] [address] Dr. Jeffrey Thomas MCV (RBC) [Entitic vol] 98.2 fL Normal 81.0-99.0 [facility] Comment on above: Performed By: #### T 4LC #### [facility] [address] [place] [address] Dr. Jeffrey Thomas MONO # 0.5 103/ul Normal 0.3-0.8 [facility] Comment on above: Performed By: #### T 4LC #### [facility] [address] [place] [address] Dr. Jeffrey Thomas Monocytes/100 WBC (Bld) 7.7 % Normal 1.7-12.0 [facility] Comment on above: Performed By: #### T 4LC #### [facility] [address] [place] [address] Dr. Jeffrey Thomas NEUT # 3.1 103/ul Normal 1.4-6.5 [facility] Comment on above: Performed By: #### T 4LC #### [facility] [address] [place] [address] Dr. Jeffrey Thomas Neutrophils/100 WBC (Bld) 51.4 % Normal 43.0-75.0 [facility] Comment on above: Performed By: #### T 4LC #### [facility] [address] [place] [address] Dr. Jeffrey Thomas Platelet mean volume (Bld) [Entitic vol] 12.1 fL Normal 9.5-13.5 [facility] Comment on above: Performed By: #### T 4LC #### [facility] [address] [place] [address] Dr. Jeffrey Thomas PLT 180 103/ul Normal 150-450 [facility] Comment on above: Performed By: #### T 4LC #### [facility] [address] [place] [address] Dr. Jeffrey Thomas RBC 3.41 106/ul Critically low 4.20-5.40 [facility] Comment on above: Performed By: #### T 4LC #### [facility] [address] [place] [address] Dr. Jeffrey Thomas WBC 6.0 103/ul Normal 4.0-11.0 [facility] Comment on above: Performed By: #### T 4LC #### [facility] [address] [place] [address] Dr. Jeffrey Thomas PROF 14(COMP METB)on 023 Albumin [Mass/Vol] 2.8 g/dL Critically low 3.4-5.0 [facility] Comment on above: Performed By: #### C MP #### [facility] [address] [place] [address] Dr. Jeffrey Thomas Albumin/Globulin [Mass ratio] 1.1 {ratio} Normal [facility] Comment on above: Performed By: #### C MP #### [facility] [address] [place] [address] Dr. Jeffrey Thomas ALP [Catalytic activity/Vol] 96 U/L Normal 46-116 [facility] Comment on above: Performed By: #### C MP #### [facility] [address] [place] [address] Dr. Jeffrey Thomas ALT [Catalytic activity/Vol] 72 U/L Critically high 14-59 [facility] Comment on above: Performed By: #### C MP #### [facility] [address] [place] [address] Dr. Jeffrey Thomas Anion gap [Moles/Vol] 12.8 mmol/L Normal [facility] Comment on above: Performed By: #### C MP #### [facility] [address] [place] [address] Dr. Jeffrey Thomas AST [Catalytic activity/Vol] 39 U/L Critically high 15-37 [facility] Comment on above: Performed By: #### C MP #### [facility] [address] [address] [address] Jeffrey Thomas Bilirubin [Mass/Vol] 0.2 mg/dL Normal 0.2-1.0 [facility] Comment on above: Performed By: #### C MP #### [facility] [address] [address] [address] Jeffrey Thomas Calcium [Mass/Vol] 7.8 mg/dL Critically low 8.5-10.1 [facility] Comment on above: Performed By: #### C MP #### [facility] [address] [address] [address] Jeffrey Thomas Chloride [Moles/Vol] 115 mmol/L Critically high 98-107 [facility] Comment on above: Performed By: #### C MP #### [facility] [address] [place] [address] Dr. Jeffrey Thomas CO2 [Moles/Vol] 20.4 mmol/L Critically low 21.0-32.0 [facility] Comment on above: Performed By: #### C MP #### [facility] [address] [address] [address] Jeffrey Thomas Creatinine [Mass/Vol] 0.98 mg/dL Normal 0.55-1.02 [facility] Comment on above: Performed By: #### C MP #### [facility] [address] [place] [address] Dr. Jeffrey Thomas EGFR-AF LEBANESE >60 Normal >=60 [facility] Comment on above: Performed By: #### C MP #### [facility] [address] [place] [address] Dr. Jeffrey Thomas EGFR-NON AF LEBANESE 57 mL/min/1.73m2 Critically low >=60 [facility] Comment on above: Performed By: #### C MP #### [facility] [address] [place] [address] Dr. Jeffrey Thomas Globulin (S) [Mass/Vol] 2.6 g/dL Normal [facility] Comment on above: Performed By: #### C MP #### [facility] [address] [address] [address] Jeffrey Thomas Glucose [Mass/Vol] 80 mg/dL Normal 74-106 [facility] Comment on above: Performed By: #### C MP #### [facility] [address] [address] [address] Jeffrey Thomas Potassium [Moles/Vol] 4.2 mmol/L Normal 3.5-5.1 [facility] Comment on above: Performed By: #### C MP #### [facility] [address] [address] [address] Jeffrey Thomas Protein [Mass/Vol] 5.4 g/dL Critically low 6.4-8.2 [facility] Comment on above: Performed By: #### C MP #### [facility] [address] [place] [address] Dr. Jeffrey Thomas Sodium [Moles/Vol] 144 mmol/L Normal 136-145 [facility] Comment on above: Performed By: #### C MP #### [facility] [address] [place] [address] Dr. Jeffrey Thomas Urea nitrogen [Mass/Vol] 10.0 mg/dL Normal 7.0-18.0 [facility] Comment on above: Performed By: #### C MP #### [facility] [address] [place] [address] Dr. Jeffrey Thomas Urea nitrogen/Creatinine [Mass ratio] 10.2 mg/mg Normal [facility] Comment on above: Performed By: #### C MP #### [facility] [address] [place] [address] Dr. Jeffrey Thomas CBC AUTO DIFFon 08-27-2022 BASO # 0.1 103/ul Normal 0.0-0.1 [facility] Comment on above: Performed By: #### C MP #### [facility] [address] [place] [address] Dr. Jeffrey Thomas Basophils/100 WBC (Bld) 1.2 % Normal 0.2-2.0 [facility] Comment on above: Performed By: #### C MP #### [facility] [address] [place] [address] Dr. Jeffrey Thomas EO # 0.2 103/ul Normal 0.0-0.7 [facility] Comment on above: Performed By: #### C MP #### [facility] [address] [place] [address] Dr. Jeffrey Thomas Eosinophils/100 WBC (Bld) 4.0 % Normal 0.9-7.0 [facility] Comment on above: Performed By: #### C MP #### [facility] [address] [place] [address] Dr. Jeffrey Thomas Erythrocyte distribution width (RBC) [Ratio] 14.6 % Normal 11.0-15.0 [facility] Comment on above: Performed By: #### C MP #### [facility] [address] [place] [address] Dr. Jeffrey Thomas Hematocrit (Bld) [Volume fraction] 35.8 % Critically low 36.0-48.0 [facility] Comment on above: Performed By: #### C MP #### [facility] [address] [place] [address] Dr. Jeffrey Thomas Hemoglobin (Bld) [Mass/Vol] 11.4 g/dL Critically low 12.0-16.0 [facility] Comment on above: Performed By: #### C MP #### [facility] [address] [place] [address] Dr. Jeffrey Thomas IG # 0.01 10e3/ul Normal 0.00-0.03 [facility] Comment on above: Performed By: #### C MP #### [facility] [address] [place] [address] Dr. Jeffrey Thomas IG % 0.2 % Normal 0.0-0.5 [facility] Comment on above: Performed By: #### C MP #### [facility] [address] [place] [address] Dr. Jeffrey Thomas LYMPH # 2.0 103/ul Normal 1.2-3.8 [facility] Comment on above: Performed By: #### C MP #### [facility] [address] [place] [address] Dr. Jeffrey Thomas Lymphocytes/100 WBC (Bld) 35.4 % Normal 20.5-60.0 [facility] Comment on above: Performed By: #### C MP #### [facility] [address] [place] [address] Dr. Jeffrey Thomas MANUAL DIFF REQ NO Normal [facility] Comment on above: Performed By: #### C MP #### [facility] [address] [place] [address] Dr. Jeffrey Thomas MCH (RBC) [Entitic mass] 29.9 pg Normal 26.7-34.0 [facility] Comment on above: Performed By: #### C MP #### [facility] [address] [place] [address] Dr. Jeffrey Thomas MCHC (RBC) [Mass/Vol] 31.8 g/dL Normal 29.9-35.2 [facility] Comment on above: Performed By: #### C MP #### [facility] [address] [place] [address] Dr. Jeffrey Thomas MCV (RBC) [Entitic vol] 94.0 fL Normal 81.0-99.0 [facility] Comment on above: Performed By: #### C MP #### [facility] [address] [place] [address] Dr. Jeffrey Thomas MONO # 0.5 103/ul Normal 0.3-0.8 [facility] Comment on above: Performed By: #### C MP #### [facility] [address] [place] [address] Dr. Jeffrey Thomas Monocytes/100 WBC (Bld) 9.2 % Normal 1.7-12.0 [facility] Comment on above: Performed By: #### C MP #### [facility] [address] [place] [address] Dr. Jeffrey Thomas NEUT # 2.8 103/ul Normal 1.4-6.5 [facility] Comment on above: Performed By: #### C MP #### [facility] [address] [place] [address] Dr. Jeffrey Thomas Neutrophils/100 WBC (Bld) 50.0 % Normal 43.0-75.0 [facility] Comment on above: Performed By: #### C MP #### [facility] [address] [place] [address] Dr. Jeffrey Thomas Platelet mean volume (Bld) [Entitic vol] 12.0 fL Normal 9.5-13.5 [facility] Comment on above: Performed By: #### C MP #### [facility] [address] [address] [address] Jeffrey Thomas PLT 199 103/ul Normal 150-450 [facility] Comment on above: Performed By: #### C MP #### [facility] [address] [place] [address] Dr. Jeffrey Thomas RBC 3.81 106/ul Critically low 4.20-5.40 [facility] Comment on above: Performed By: #### C MP #### [facility] [address] [place] [address] Dr. Jeffrey Thomas WBC 5.7 103/ul Normal 4.0-11.0 [facility] Comment on above: Performed By: #### C MP #### [facility] [address] [place] [address] Dr. Jeffrey Thomas LACTATE/LACTIC ACIDon 2022 Lactate [Moles/Vol] 0.6 mmol/L Normal 0.4-2.0 [facility] Comment on above: Performed By: #### C MP #### [facility] [address] [place] [address] Dr. Jeffrey Thomas Lactate [Moles/Vol] 2.8 mmol/L Critically high 0.4-2.0 [facility] Comment on above: Performed By: #### T 4LC #### [facility] [address] [place] [address] Dr. Jeffrey Thomas PROF 14(COMP METB)on 023 Albumin [Mass/Vol] 2.8 g/dL Critically low 3.4-5.0 [facility] Comment on above: Performed By: #### C MP #### [facility] [address] [place] [address] Dr. Jeffrey Thomas Albumin/Globulin [Mass ratio] 0.9 {ratio} Normal [facility] Comment on above: Performed By: #### C MP #### [facility] [address] [place] [address] Dr. Jeffrey Thomas ALP [Catalytic activity/Vol] 100 U/L Normal 46-116 [facility] Comment on above: Performed By: #### C MP #### [facility] [address] [place] [address] Dr. Jeffrey Thomas ALT [Catalytic activity/Vol] 102 U/L Critically high 14-59 [facility] Comment on above: Performed By: #### C MP #### [facility] [address] [place] [address] Dr. Jeffrey Thomas Anion gap [Moles/Vol] 17.0 mmol/L Normal [facility] Comment on above: Performed By: #### C MP #### [facility] [address] [place] [address] Dr. Jeffrey Thomas AST [Catalytic activity/Vol] 62 U/L Critically high 15-37 [facility] Comment on above: Performed By: #### C MP #### [facility] [address] [place] [address] Dr. Jeffrey Thomas Bilirubin [Mass/Vol] 0.3 mg/dL Normal 0.2-1.0 [facility] Comment on above: Performed By: #### C MP #### [facility] [address] [place] [address] Dr. Jeffrey Thomas Calcium [Mass/Vol] 8.1 mg/dL Critically low 8.5-10.1 [facility] Comment on above: Performed By: #### C MP #### [facility] [address] [place] [address] Dr. Jeffrey Thomas Chloride [Moles/Vol] 110 mmol/L Critically high 98-107 [facility] Comment on above: Performed By: #### C MP #### [facility] [address] [place] [address] Dr. Jeffrey Thomas CO2 [Moles/Vol] 18.6 mmol/L Critically low 21.0-32.0 [facility] Comment on above: Performed By: #### C MP #### [facility] [address] [address] [address] Jeffrey Thomas Creatinine [Mass/Vol] 1.43 mg/dL Critically high 0.55-1.02 [facility] Comment on above: Performed By: #### C MP #### [facility] [address] [address] [address] Jeffrey Thomas EGFR-AF LEBANESE 45 mL/min/1.73m2 Critically low >=60 [facility] Comment on above: Performed By: #### C MP #### [facility] [address] [address] [address] Jeffrey Thomas EGFR-NON AF LEBANESE 37 mL/min/1.73m2 Critically low >=60 [facility] Comment on above: Performed By: #### C MP #### [facility] [address] [address] [address] Jeffrey Thomas Globulin (S) [Mass/Vol] 3.0 g/dL Normal [facility] Comment on above: Performed By: #### C MP #### [facility] [address] [address] [address] Jeffrey Thomas Glucose [Mass/Vol] 141 mg/dL Critically high 74-106 T [facility] Comment on above: Performed By: #### C MP #### [facility] [address] [address] [address] Jeffrey Thomas Potassium [Moles/Vol] 3.6 mmol/L Normal 3.5-5.1 [facility] Comment on above: Performed By: #### C MP #### [facility] [address] [address] [address] Jeffrey Thomas Protein [Mass/Vol] 5.8 g/dL Critically low 6.4-8.2 Th [facility] Comment on above: Performed By: #### C MP #### [facility] [address] [address] [address] Jeffrey Thomas Sodium [Moles/Vol] 142 mmol/L Normal 136-145 [facility] Comment on above: Performed By: #### C ALE #### [facility] [address] [place] [address] Dr. Jeffrey Thomas Urea nitrogen [Mass/Vol] 22.0 mg/dL Critically high 7.0-18.0 [facility] Comment on above: Performed By: #### C ALE #### [facility] [address] [place] [address] Dr. Jeffrey Thomas Urea nitrogen/Creatinine [Mass ratio] 15.4 mg/mg Normal [facility] Comment on above: Performed By: #### C ALE #### [facility] [address] [place] [address] Dr. Jeffrey Thomas AMYLASEon 08-26-2022 Amylase [Catalytic activity/Vol] 40 U/L Normal 25-115 [facility] Comment on above: Performed By: #### C ALE #### [facility] [address] [place] [address] Dr. Jeffrey Thomas CARDIAC CHONG ADMITon 023 CK [Catalytic activity/Vol] 39 U/L Normal 26-192 [facility] Comment on above: Performed By: #### C JUANITO AGUILERA #### [facility] [address] [place] [address] Dr. Jeffrey Thomas CK.MB [Mass/Vol] 1.47 ng/mL Normal <=3.60 [facility] Comment on above: Performed By: #### C JUANITO AGUILERA #### [facility] [address] [place] [address] Dr. Jeffrey Thomas HSTROP 7.0 pg/mL Normal 4.0-51.3 [facility] Comment on above: Result Comment: CUT- OFF POINTS HAVE BEEN ESTABLISHED BASED ON THE FOURTH UNIVERSAL DEFINITIONS OF MYOCARDIAL INFARCTION. THE UPPER REFERENCE LIMIT (URL) OF TROPONIN, DEFINED THE 99TH PERCENTILE OF cTnI DISTRIBUTION IN A REFERENCE POPULATION, HAS BEEN CONFIRMED THE DECISION THRESHOLD FOR [place] DIAGNOSIS. Performed By: #### C JUAINTO AGUILERA #### [facility] [address] [place] [address] Dr. Jeffrey Thomas SHONNA 107 ng/mL Critically high 9-82 [facility] Comment on above: Performed By: #### C MP, CMADM #### [facility] [address] [place] [address] Dr. Jeffrey Thomas CBC AUTO DIFFon 08-26-2022 BASO # 0.1 103/ul Normal 0.0-0.1 [facility] Comment on above: Performed By: #### C MP #### [facility] [address] [place] [address] Dr. Jeffrey Thomas Basophils/100 WBC (Bld) 0.9 % Normal 0.2-2.0 [facility] Comment on above: Performed By: #### C MP #### [facility] [address] [place] [address] Dr. Jeffrey Thomas EO # 0.1 103/ul Normal 0.0-0.7 [facility] Comment on above: Performed By: #### C MP #### [facility] [address] [place] [address] Dr. Jeffrey Thomas Eosinophils/100 WBC (Bld) 0.9 % Normal 0.9-7.0 [facility] Comment on above: Performed By: #### C MP #### [facility] [address] [place] [address] Dr. Jeffrey Thomas Erythrocyte distribution width (RBC) [Ratio] 14.1 % Normal 11.0-15.0 [facility] Comment on above: Performed By: #### C MP #### [facility] [address] [place] [address] Dr. Jeffrey Thomas Hematocrit (Bld) [Volume fraction] 48.3 % Critically high 36.0-48.0 [facility] Comment on above: Performed By: #### C MP #### [facility] [address] [place] [address] Dr. Jeffrey Thomas Hemoglobin (Bld) [Mass/Vol] 15.4 g/dL Normal 12.0-16.0 [facility] Comment on above: Performed By: #### C MP #### [facility] [address] [place] [address] Dr. Jeffrey Thomas IG # 0.04 10e3/ul Critically high 0.00-0.03 [facility] Comment on above: Performed By: #### C MP #### [facility] [address] [place] [address] Dr. Jeffrey Thomas IG % 0.3 % Normal 0.0-0.5 [facility] Comment on above: Performed By: #### C MP #### [facility] [address] [address] [address] Jeffrey Thomas LYMPH # 1.2 103/ul Normal 1.2-3.8 [facility] Comment on above: Performed By: #### C MP #### [facility] [address] [place] [address] Dr. Jeffrey Thomas Lymphocytes/100 WBC (Bld) 10.0 % Critically low 20.5-60.0 [facility] Comment on above: Performed By: #### C MP #### [facility] [address] [place] [address] Dr. Jeffrey Thomas MANUAL DIFF REQ NO Normal [facility] Comment on above: Performed By: #### C MP #### [facility] [address] [place] [address] Dr. Jeffrey Thomas MCH (RBC) [Entitic mass] 29.7 pg Normal 26.7-34.0 [facility] Comment on above: Performed By: #### C MP #### [facility] [address] [place] [address] Dr. Jeffrey Thomas MCHC (RBC) [Mass/Vol] 31.9 g/dL Normal 29.9-35.2 [facility] Comment on above: Performed By: #### C MP #### [facility] [address] [place] [address] Dr. Jeffrey Thomas MCV (RBC) [Entitic vol] 93.1 fL Normal 81.0-99.0 [facility] Comment on above: Performed By: #### C MP #### [facility] [address] [place] [address] Dr. Jeffrey Thomas MONO # 0.5 103/ul Normal 0.3-0.8 [facility] Comment on above: Performed By: #### C MP #### [facility] [address] [place] [address] Dr. Jeffrey Thomas Monocytes/100 WBC (Bld) 4.1 % Normal 1.7-12.0 [facility] Comment on above: Performed By: #### C MP #### [facility] [address] [place] [address] Dr. Jeffrey Thomas NEUT # 10.2 103/ul Critically high 1.4-6.5 [facility] Comment on above: Performed By: #### C MP #### [facility] [address] [place] [address] Dr. Jeffrey Thomas Neutrophils/100 WBC (Bld) 83.8 % Critically high 43.0-75.0 [facility] Comment on above: Performed By: #### C MP #### [facility] [address] [place] [address] Dr. Jeffrey Thomas Platelet mean volume (Bld) [Entitic vol] 12.2 fL Normal 9.5-13.5 [facility] Comment on above: Performed By: #### C MP #### [facility] [address] [place] [address] Dr. Jeffrey Thomas PLT 303 103/ul Normal 150-450 [facility] Comment on above: Performed By: #### C MP #### [facility] [address] [place] [address] Dr. Jeffrey Thomas RBC 5.19 106/ul Normal 4.20-5.40 [facility] Comment on above: Performed By: #### C MP #### [facility] [address] [place] [address] Dr. Jeffrey Thomas WBC 12.2 103/ul Critically high 4.0-11.0 [facility] Comment on above: Performed By: #### C MP #### [facility] [address] [place] [address] ABD/PELVIS WO CONon [...] by: SALVADOR POTTS Date: 2022-08-26 15:43 Normal [facility] LIPASEon 08-26-2022 Lipase [Catalytic activity/Vol] 27.0 U/L Critically low 73.0-393.0 [facility] Comment on above: Performed By: #### L ACT #### [facility] [address] [address] [address] Jeffrey Thomas PROF 14(COMP METB)on 023 Albumin [Mass/Vol] 3.7 g/dL Normal 3.4-5.0 [facility] Comment on above: Performed By: #### C JUANITO AGUILERA #### [facility] [address] [place], [place] [address] Dr. Jeffrey Thomas Albumin/Globulin [Mass ratio] 0.9 {ratio} Normal [facility] Comment on above: Performed By: #### C MP, CMADM #### [facility] [address] [address] [address] Jeffrey Thomas ALP [Catalytic activity/Vol] 138 U/L Critically high 46-116 [facility] Comment on above: Performed By: #### C MP, CMADM #### [facility] [address] [address] [address] Jeffrey Thomas ALT [Catalytic activity/Vol] 174 U/L Critically high 14-59 [facility] Comment on above: Performed By: #### C MP, CMADM #### [facility] [address] [address] [address] Jeffrey Thomas Anion gap [Moles/Vol] 20.4 mmol/L Normal [facility] Comment on above: Performed By: #### C MP, CMADM #### [facility] [address] [address] [address] Jeffrey Thomas AST [Catalytic activity/Vol] 135 U/L Critically high 15-37 [facility] Comment on above: Performed By: #### C MP, CMADM #### [facility] [address] [address] [address] Jeffrey Thomas Bilirubin [Mass/Vol] 0.4 mg/dL Normal 0.2-1.0 [facility] Comment on above: Performed By: #### C MP, CMADM #### [facility] [address] [address] [address] Jeffrey Thomas Calcium [Mass/Vol] 9.1 mg/dL Normal 8.5-10.1 [facility] Comment on above: Performed By: #### C MP, CMADM #### [facility] [address] [address] [address] Jeffrey Thomas Chloride [Moles/Vol] 103 mmol/L Normal 98-107 [facility] Comment on above: Performed By: #### C MP, CMADM #### [facility] [address] [address] [address] Jeffrey Thomas CO2 [Moles/Vol] 18.5 mmol/L Critically low 21.0-32.0 [facility] Comment on above: Performed By: #### C MP, CMADM #### [facility] [address] [address] [address] Jeffrey Thomas Creatinine [Mass/Vol] 1.85 mg/dL Critically high 0.55-1.02 [facility] Comment on above: Performed By: #### C MP, CMADM #### [facility] [address] [address] [address] Jeffrey Thomas EGFR-AF LEBANESE 33 mL/min/1.73m2 Critically low >=60 [facility] Comment on above: Performed By: #### C MP, CMADM #### [facility] [address] [place] [address] Dr. Jeffrey Thomas EGFR-NON AF LEBANESE 27 mL/min/1.73m2 Critically low >=60 [facility] Comment on above: Performed By: #### C MP, CMADM #### [facility] [address] [place] [address] Dr. Jeffrey Thomas Globulin (S) [Mass/Vol] 4.0 g/dL Normal [facility] Comment on above: Performed By: #### C MP, CMADM #### [facility] [address] [place] [address] Dr. Jeffrey Thomas Glucose [Mass/Vol] 110 mg/dL Critically high 74-106 [facility] Comment on above: Performed By: #### C MP, CMADM #### [facility] [address] [place] [address] Dr. Jeffrey Thomas Potassium [Moles/Vol] 3.9 mmol/L Normal 3.5-5.1 [facility] Comment on above: Performed By: #### C MP, CMADM #### [facility] [address] [place] [address] Dr. Jeffrey Thomas Protein [Mass/Vol] 7.7 g/dL Normal 6.4-8.2 [facility] Comment on above: Performed By: #### C MP, CMADM #### [facility] [address] [place] [address] Dr. Jeffrey Thomas Sodium [Moles/Vol] 138 mmol/L Normal 136-145 [facility] Comment on above: Performed By: #### C JUANITO AGUILERA #### [facility] [address] [address] [address] Jeffrey Thomas Urea nitrogen [Mass/Vol] 32.0 mg/dL Critically high 7.0-18.0 [facility] Comment on above: Performed By: #### C JUANITO AGUILERA #### [facility] [address] [place], [place] [address] Dr. Jeffrey Thomas Urea nitrogen/Creatinine [Mass ratio] 17.3 mg/mg Normal [facility] Comment on above: Performed By: #### C ALE, JUANITO #### [facility] [address] [address] [address] Jeffrey Thomas US SINGLE QUAD RT [...] LIDIA COLÓN Date: 2022-08-26 20:40 Normal [facility] CBC AUTO DIFFon 08-01-2022 BASO # 0.1 103/ul Normal 0.0-0.1 [facility] Comment on above: Performed By: #### T 4LC #### [facility] [address] [address] [address] Jefrfey Thomas Basophils/100 WBC (Bld) 1.3 % Normal 0.2-2.0 [facility] Comment on above: Performed By: #### T 4LC #### [facility] [address] [address] [address] Jeffrey Thomas EO # 0.2 103/ul Normal 0.0-0.7 [facility] Comment on above: Performed By: #### T 4LC #### [facility] [address] [address] [address] Jeffrey Thomas Eosinophils/100 WBC (Bld) 2.8 % Normal 0.9-7.0 [facility] Comment on above: Performed By: #### T 4LC #### [facility] [address] [address] [address] Jeffrey Thomas Erythrocyte distribution width (RBC) [Ratio] 15.9 % Critically high 11.0-15.0 [facility] Comment on above: Performed By: #### T 4LC #### [facility] [address] [address] [address] Jeffrey Thomas Hematocrit (Bld) [Volume fraction] 37.7 % Normal 36.0-48.0 [facility] Comment on above: Performed By: #### T 4LC #### [facility] [address] [address] [address] Jeffrey Thomas Hemoglobin (Bld) [Mass/Vol] 11.5 g/dL Critically low 12.0-16.0 [facility] Comment on above: Performed By: #### T 4LC #### [facility] [address] [address] [address] Jeffrey Thomas IG # 0.03 10e3/ul Normal 0.00-0.03 [facility] Comment on above: Performed By: #### T 4LC #### [facility] [address] [place] [address] Dr. Jeffrey Thomas IG % 0.4 % Normal 0.0-0.5 [facility] Comment on above: Performed By: #### T 4LC #### [facility] [address] [place] [address] Dr. Jeffrey Thomas LYMPH # 1.6 103/ul Normal 1.2-3.8 [facility] Comment on above: Performed By: #### T 4LC #### [facility] [address] [place] [address] Dr. Jeffrey Thoams Lymphocytes/100 WBC (Bld) 20.9 % Normal 20.5-60.0 [facility] Comment on above: Performed By: #### T 4LC #### [facility] [address] [place] [address] Dr. Jeffrey Thomas MANUAL DIFF REQ NO Normal [facility] Comment on above: Performed By: #### T 4LC #### [facility] [address] [place] [address] Dr. Jeffrey Thomas MCH (RBC) [Entitic mass] 30.0 pg Normal 26.7-34.0 [facility] Comment on above: Performed By: #### T 4LC #### [facility] [address] [place] [address] Dr. Jeffrey Thomas MCHC (RBC) [Mass/Vol] 30.5 g/dL Normal 29.9-35.2 [facility] Comment on above: Performed By: #### T 4LC #### [facility] [address] [place] [address] Dr. Jeffrey Thomas MCV (RBC) [Entitic vol] 98.4 fL Normal 81.0-99.0 [facility] Comment on above: Performed By: #### T 4LC #### [facility] [address] [place] [address] Dr. Jeffrey Thomas MONO # 0.7 103/ul Normal 0.3-0.8 [facility] Comment on above: Performed By: #### T 4LC #### [facility] [address] [place] [address] Dr. Jeffrey Thomas Monocytes/100 WBC (Bld) 8.7 % Normal 1.7-12.0 [facility] Comment on above: Performed By: #### T 4LC #### [facility] [address] [place] [address] Dr. Jeffrey Thomas NEUT # 5.2 103/ul Normal 1.4-6.5 [facility] Comment on above: Performed By: #### T 4LC #### [facility] [address] [place] [address] Dr. Jeffrey Thomas Neutrophils/100 WBC (Bld) 65.9 % Normal 43.0-75.0 [facility] Comment on above: Performed By: #### T 4LC #### [facility] [address] [place] [address] Dr. Jeffrey Thomas Platelet mean volume (Bld) [Entitic vol] 11.8 fL Normal 9.5-13.5 [facility] Comment on above: Performed By: #### T 4LC #### [facility] [address] [place] [address] Dr. Jeffrey Thomas PLT 265 103/ul Normal 150-450 [facility] Comment on above: Performed By: #### T 4LC #### [facility] [address] [place] [address] Dr. Jeffrey Thomas RBC 3.83 106/ul Critically low 4.20-5.40 [facility] Comment on above: Performed By: #### T 4LC #### [facility] [address] [place] [address] Dr. Jeffrey Thomas WBC 7.8 103/ul Normal 4.0-11.0 [facility] Comment on above: Performed By: #### T 4LC #### [facility] [address] [place] [address] Dr. Jeffrey Thomas CULTURE BLOODon 08-01-2022 Microscopic examination of blood, culture Culture Observations: NO GROWTH AT 5 DAYS. Normal [facility] Comment on above: Performed By: #### A MM #### [facility] [address] [address] [address] Jeffrey Thomas PROF 14(COMP METB)on 023 Albumin [Mass/Vol] 3.4 g/dL Normal 3.4-5.0 [facility] Comment on above: Performed By: #### C MP #### [facility] [address] [place] [address] Dr. Jeffrey Thomas Albumin/Globulin [Mass ratio] 0.8 {ratio} Normal [facility] Comment on above: Performed By: #### C MP #### [facility] [address] [place] [address] Dr. Jeffrey Thomas ALP [Catalytic activity/Vol] 98 U/L Normal 46-116 [facility] Comment on above: Performed By: #### C MP #### [facility] [address] [place] [address] Dr. Jeffrey Thomas ALT [Catalytic activity/Vol] 18 U/L Normal 14-59 [facility] Comment on above: Performed By: #### C MP #### [facility] [address] [address] [address] Jeffrey Thomas Anion gap [Moles/Vol] 13.3 mmol/L Normal [facility] Comment on above: Performed By: #### C MP #### [facility] [address] [place] [address] Dr. Jeffrey Thomas AST [Catalytic activity/Vol] 21 U/L Normal 15-37 [facility] Comment on above: Performed By: #### C MP #### [facility] [address] [place] [address] Dr. Jeffrey Thomas Bilirubin [Mass/Vol] 0.2 mg/dL Normal 0.2-1.0 [facility] Comment on above: Performed By: #### C MP #### [facility] [address] [place] [address] Dr. Jeffrey Thomas Calcium [Mass/Vol] 9.2 mg/dL Normal 8.5-10.1 [facility] Comment on above: Performed By: #### C MP #### [facility] [address] [address] [address] Jeffrey Thomas Chloride [Moles/Vol] 106 mmol/L Normal 98-107 [facility] Comment on above: Performed By: #### C MP #### [facility] [address] [address] [address] Jeffrey Thomas CO2 [Moles/Vol] 23.8 mmol/L Normal 21.0-32.0 [facility] Comment on above: Performed By: #### C MP #### [facility] [address] [address] [address] Jeffrey Thomas Creatinine [Mass/Vol] 1.07 mg/dL Critically high 0.55-1.02 [facility] Comment on above: Performed By: #### C MP #### [facility] [address] [place] [address] Dr. Jeffrey Thomas EGFR-AF LEBANESE >60 Normal >=60 [facility] Comment on above: Performed By: #### C MP #### [facility] [address] [address] [address] Jeffrey Thomas EGFR-NON AF LEBANESE 51 mL/min/1.73m2 Critically low >=60 [facility] Comment on above: Performed By: #### C MP #### [facility] [address] [address] [address] Jeffrey Thomas Globulin (S) [Mass/Vol] 4.1 g/dL Normal [facility] Comment on above: Performed By: #### C MP #### [facility] [address] [address] [address] Jeffrey Thomas Glucose [Mass/Vol] 77 mg/dL Normal 74-106 [facility] Comment on above: Performed By: #### C MP #### [facility] [address] [address] [address] Jeffrey Thomas Potassium [Moles/Vol] 5.1 mmol/L Normal 3.5-5.1 [facility] Comment on above: Performed By: #### C MP #### [facility] [address] [address] [address] Jeffrey Thomas Protein [Mass/Vol] 7.5 g/dL Normal 6.4-8.2 [facility] Comment on above: Performed By: #### C MP #### [facility] [address] [place] [address] Dr. Jeffrey Thomas Sodium [Moles/Vol] 138 mmol/L Normal 136-145 [facility] Comment on above: Performed By: #### C MP #### [facility] [address] [address] [address] Jeffrey Thomas Urea nitrogen [Mass/Vol] 36.0 mg/dL Critically high 7.0-18.0 [facility] Comment on above: Performed By: #### C MP #### [facility] [address] [place] [address] Dr. Jeffrey Thomas Urea nitrogen/Creatinine [Mass ratio] 33.6 mg/mg Normal [facility] Comment on above: Performed By: #### C MP #### [facility] [address] [place] [address] Dr. Jeffrey [facility] mm/hr Critically high <=30 [facility] Comment on above: Performed By: #### C MP #### [facility] [address] [place] [address] Dr. Jeffrey Thomas AMMONIAon 05-23-2022 Ammonia (P) [Moles/Vol] 18 umol/L Normal 11-32 [facility] Comment on above: Performed By: #### C MP #### [facility] [address] [place] [address] Dr. Jeffrey Thomas AMYLASEon 05-23-2022 Amylase [Catalytic activity/Vol] 30 U/L Normal 25-115 [facility] Comment on above: Performed By: #### A MM #### [facility] [address] [place] [address] Dr. Jeffrey Thomas BNPon 05-23-2022 Natriuretic peptide B (Bld) [Mass/Vol] 1066.0 pg/mL Critically high <=900.0 [facility] Comment on above: Performed By: #### A MM #### [facility] [address] [address] [address] Jeffrey Thomas CBC AUTO DIFFon 05-23-2022 BASO # 0.1 103/ul Normal 0.0-0.1 [facility] Comment on above: Performed By: #### C MP #### [facility] [address] [address] [address] Jeffrey Thomas Basophils/100 WBC (Bld) 1.1 % Normal 0.2-2.0 [facility] Comment on above: Performed By: #### C MP #### [facility] [address] [address] [address] Jeffrey Thomas EO # 0.2 103/ul Normal 0.0-0.7 [facility] Comment on above: Performed By: #### C MP #### [facility] [address] [place] [address] Dr. Jeffrey Thomas Eosinophils/100 WBC (Bld) 3.1 % Normal 0.9-7.0 [facility] Comment on above: Performed By: #### C MP #### [facility] [address] [place] [address] Dr. Jeffrey Thomas Erythrocyte distribution width (RBC) [Ratio] 17.2 % Critically high 11.0-15.0 [facility] Comment on above: Performed By: #### C MP #### [facility] [address] [place] [address] Dr. Jeffrey Thomas Hematocrit (Bld) [Volume fraction] 33.0 % Critically low 36.0-48.0 [facility] Comment on above: Performed By: #### C MP #### [facility] [address] [place] [address] Dr. Jeffrey Thomas Hemoglobin (Bld) [Mass/Vol] 10.3 g/dL Critically low 12.0-16.0 [facility] Comment on above: Performed By: #### C MP #### [facility] [address] [place] [address] Dr. Jeffrey Thomas IG # 0.02 10e3/ul Normal 0.00-0.03 [facility] Comment on above: Performed By: #### C MP #### [facility] [address] [place] [address] Dr. Jeffrey Thomas IG % 0.3 % Normal 0.0-0.5 [facility] Comment on above: Performed By: #### C MP #### [facility] [address] [place] [address] Dr. Jeffrey Thomas LYMPH # 1.8 103/ul Normal 1.2-3.8 [facility] Comment on above: Performed By: #### C MP #### [facility] [address] [place] [address] Dr. Jeffrey Thomas Lymphocytes/100 WBC (Bld) 27.8 % Normal 20.5-60.0 [facility] Comment on above: Performed By: #### C MP #### [facility] [address] [place] [address] Dr. Jeffrey Thomas MANUAL DIFF REQ NO Normal [facility] Comment on above: Performed By: #### C MP #### [facility] [address] [place] [address] Dr. Jeffrey Thomas MCH (RBC) [Entitic mass] 28.4 pg Normal 26.7-34.0 [facility] Comment on above: Performed By: #### C MP #### [facility] [address] [place] [address] Dr. Jeffrey Thomas MCHC (RBC) [Mass/Vol] 31.2 g/dL Normal 29.9-35.2 [facility] Comment on above: Performed By: #### C MP #### [facility] [address] [place] [address] Dr. Jeffrey Thomas MCV (RBC) [Entitic vol] 90.9 fL Normal 81.0-99.0 [facility] Comment on above: Performed By: #### C MP #### [facility] [address] [place] [address] Dr. Jeffrey Thomas MONO # 0.4 103/ul Normal 0.3-0.8 [facility] Comment on above: Performed By: #### C MP #### [facility] [address] [address] [address] Jeffrey Thomas Monocytes/100 WBC (Bld) 6.7 % Normal 1.7-12.0 [facility] Comment on above: Performed By: #### C MP #### [facility] [address] [address] [address] Jeffrey Thomas NEUT # 4.0 103/ul Normal 1.4-6.5 [facility] Comment on above: Performed By: #### C MP #### [facility] [address] [place] [address] Dr. Jeffrey Thomas Neutrophils/100 WBC (Bld) 61.0 % Normal 43.0-75.0 [facility] Comment on above: Performed By: #### C MP #### [facility] [address] [place] [address] Dr. Jeffrey Thomas Platelet mean volume (Bld) [Entitic vol] 10.4 fL Normal 9.5-13.5 [facility] Comment on above: Performed By: #### C MP #### [facility] [address] [place] [address] Dr. Jeffrey Thomas PLT 218 103/ul Normal 150-450 [facility] Comment on above: Performed By: #### C MP #### [facility] [address] [place] [address] Dr. Jeffrey Thomas RBC 3.63 106/ul Critically low 4.20-5.40 [facility] Comment on above: Performed By: #### C MP #### [facility] [address] [place] [address] Dr. Jeffrey Thomas WBC 6.5 103/ul Normal 4.0-11.0 [facility] Comment on above: Performed By: #### C MP #### [facility] [address] [place] [address] Dr. Jeffrey Thomas MAGNESIUMon 05-23-2022 Magnesium [Mass/Vol] 1.4 mg/dL Critically low 1.8-2.4 [facility] Comment on above: Performed By: #### A MM #### [facility] [address] [place] [address] Dr. Jeffrey Thomas PROF 14(COMP METB)on 023 Albumin [Mass/Vol] 2.8 g/dL Critically low 3.4-5.0 [facility] Comment on above: Performed By: #### A MM #### [facility] [address] [place] [address] Dr. Jeffrey Thomas Albumin/Globulin [Mass ratio] 1.0 {ratio} Normal [facility] Comment on above: Performed By: #### A MM #### [facility] [address] [place] [address] Dr. Jeffrey Thomas ALP [Catalytic activity/Vol] 113 U/L Normal 46-116 [facility] Comment on above: Performed By: #### A MM #### [facility] [address] [place] [address] Dr. Jeffrey Thomas ALT [Catalytic activity/Vol] 14 U/L Normal 14-59 [facility] Comment on above: Performed By: #### A MM #### [facility] [address] [place] [address] Dr. Jeffrey Thomas Anion gap [Moles/Vol] 15.0 mmol/L Normal [facility] Comment on above: Performed By: #### A MM #### [facility] [address] [place] [address] Dr. Jeffrey Thomas AST [Catalytic activity/Vol] 18 U/L Normal 15-37 [facility] Comment on above: Performed By: #### A MM #### [facility] [address] [place] [address] Dr. Jeffrey Thomas Bilirubin [Mass/Vol] 0.5 mg/dL Normal 0.2-1.0 [facility] Comment on above: Performed By: #### A MM #### [facility] [address] [place] [address] Dr. Jeffrey Thomas Calcium [Mass/Vol] 8.3 mg/dL Critically low 8.5-10.1 [facility] Comment on above: Performed By: #### A MM #### [facility] [address] [address] [address] Jeffrey Thomas Chloride [Moles/Vol] 106 mmol/L Normal 98-107 [facility] Comment on above: Performed By: #### A MM #### [facility] [address] [address] [address] Jeffrey Thomas CO2 [Moles/Vol] 21.2 mmol/L Normal 21.0-32.0 [facility] Comment on above: Performed By: #### A MM #### [facility] [address] [address] [address] Jeffrey Thomas Creatinine [Mass/Vol] 1.02 mg/dL Normal 0.55-1.02 [facility] Comment on above: Performed By: #### A MM #### [facility] [address] [place] [address] Dr. Jeffrey Thomas EGFR-AF LEBANESE >60 Normal >=60 [facility] Comment on above: Performed By: #### A MM #### [facility] [address] [place] [address] Dr. Jeffrey Thomas EGFR-NON AF LEBANESE 54 mL/min/1.73m2 Critically low >=60 [facility] Comment on above: Performed By: #### A MM #### [facility] [address] [place] [address] Dr. Jeffrey Thomas Globulin (S) [Mass/Vol] 2.8 g/dL Normal [facility] Comment on above: Performed By: #### A MM #### [facility] [address] [place] [address] Dr. Jeffrey Thomas Glucose [Mass/Vol] 85 mg/dL Normal 74-106 [facility] Comment on above: Performed By: #### A MM #### [facility] [address] [place] [address] Dr. Jeffrey Thomas Potassium [Moles/Vol] 4.2 mmol/L Normal 3.5-5.1 [facility] Comment on above: Performed By: #### A MM #### [facility] [address] [place] [address] Dr. Jeffrey Thomas Protein [Mass/Vol] 5.6 g/dL Critically low 6.4-8.2 [facility] Comment on above: Performed By: #### A MM #### [facility] [address] [place] [address] Dr. Jeffrey Thomas Sodium [Moles/Vol] 138 mmol/L Normal 136-145 [facility] Comment on above: Performed By: #### A MM #### [facility] [address] [place] [address] Dr. Jeffrey Thomas Urea nitrogen [Mass/Vol] 17.0 mg/dL Normal 7.0-18.0 [facility] Comment on above: Performed By: #### A MM #### [facility] [address] [place] [address] Dr. Jeffrey Thomas Urea nitrogen/Creatinine [Mass ratio] 16.7 mg/mg Normal [facility] Comment on above: Performed By: #### A MM #### [facility] [address] [place] [address] Dr. Jeffrey Thomas BNPon 05-22-2022 Natriuretic peptide B (Bld) [Mass/Vol] 1738.0 pg/mL Critically high <=900.0 [facility] Comment on above: Performed By: #### C MP #### [facility] [address] [place] [address] Dr. Jeffrey Thomas CBC AUTO DIFFon 05-22-2022 BASO # 0.1 103/ul Normal 0.0-0.1 [facility] Comment on above: Performed By: #### C MP #### [facility] [address] [place] [address] Dr. Jeffrey Thomas Basophils/100 WBC (Bld) 1.0 % Normal 0.2-2.0 [facility] Comment on above: Performed By: #### C MP #### [facility] [address] [place] [address] Dr. Jeffrey Thomas EO # 0.1 103/ul Normal 0.0-0.7 [facility] Comment on above: Performed By: #### C MP #### [facility] [address] [place] [address] Dr. Jeffrey Thomas Eosinophils/100 WBC (Bld) 1.0 % Normal 0.9-7.0 [facility] Comment on above: Performed By: #### C MP #### [facility] [address] [place] [address] Dr. Jeffrey Thomas Erythrocyte distribution width (RBC) [Ratio] 17.2 % Critically high 11.0-15.0 [facility] Comment on above: Performed By: #### C MP #### [facility] [address] [place] [address] Dr. Jeffrey Thomas Hematocrit (Bld) [Volume fraction] 36.8 % Normal 36.0-48.0 [facility] Comment on above: Performed By: #### C MP #### [facility] [address] [place] [address] Dr. Jeffrey Thomas Hemoglobin (Bld) [Mass/Vol] 11.8 g/dL Critically low 12.0-16.0 [facility] Comment on above: Performed By: #### C MP #### [facility] [address] [place] [address] Dr. Jeffrey Thomas IG # 0.01 10e3/ul Normal 0.00-0.03 [facility] Comment on above: Performed By: #### C MP #### [facility] [address] [place] [address] Dr. Jeffrey Thomas IG % 0.2 % Normal 0.0-0.5 [facility] Comment on above: Performed By: #### C MP #### [facility] [address] [place] [address] Dr. Jeffrey Thomas LYMPH # 1.4 103/ul Normal 1.2-3.8 [facility] Comment on above: Performed By: #### C MP #### [facility] [address] [place] [address] Dr. Jeffrey Thomas Lymphocytes/100 WBC (Bld) 28.2 % Normal 20.5-60.0 [facility] Comment on above: Performed By: #### C MP #### [facility] [address] [place] [address] Dr. Jeffrey Thomas MANUAL DIFF REQ NO Normal [facility] Comment on above: Performed By: #### C MP #### [facility] [address] [place] [address] Dr. Jfefrey Thomas MCH (RBC) [Entitic mass] 29.0 pg Normal 26.7-34.0 [facility] Comment on above: Performed By: #### C MP #### [facility] [address] [place] [address] Dr. Jeffrey Thomas MCHC (RBC) [Mass/Vol] 32.1 g/dL Normal 29.9-35.2 [facility] Comment on above: Performed By: #### C MP #### [facility] [address] [place] [address] Dr. Jeffrey Thomas MCV (RBC) [Entitic vol] 90.4 fL Normal 81.0-99.0 [facility] Comment on above: Performed By: #### C MP #### [facility] [address] [place] [address] Dr. Jeffrey Thomas MONO # 0.4 103/ul Normal 0.3-0.8 [facility] Comment on above: Performed By: #### C MP #### [facility] [address] [place] [address] Dr. Jeffrey Thomas Monocytes/100 WBC (Bld) 7.3 % Normal 1.7-12.0 [facility] Comment on above: Performed By: #### C MP #### [facility] [address] [place] [address] Dr. Jeffrey Thomas NEUT # 3.0 103/ul Normal 1.4-6.5 [facility] Comment on above: Performed By: #### C MP #### [facility] [address] [place] [address] Dr. Jeffrey Thomas Neutrophils/100 WBC (Bld) 62.3 % Normal 43.0-75.0 [facility] Comment on above: Performed By: #### C MP #### [facility] [address] [place] [address] Dr. Jeffrey Thomas Platelet mean volume (Bld) [Entitic vol] 10.4 fL Normal 9.5-13.5 [facility] Comment on above: Performed By: #### C MP #### [facility] [address] [place] [address] Dr. Jeffrey Thomas PLT 254 103/ul Normal 150-450 [facility] Comment on above: Performed By: #### C MP #### [facility] [address] [address] [address] Jeffrey Thomas RBC 4.07 106/ul Critically low 4.20-5.40 [facility] Comment on above: Performed By: #### C MP #### [facility] [address] [address] [address] Jeffrey Thomas WBC 4.8 103/ul Normal 4.0-11.0 [facility] Comment on above: Performed By: #### C MP #### [facility] [address] [place] [address] ABD/PELVIS WO CONon [...] SALOME JOLLY Date: 2022-05-22 15:45 Normal [facility] CULTURE URINEon 05-22-2022 CULTURE URINE Culture Observations : LIGHT GROWTH OF MIXED GENITAL CANDIDA. NO POTENTIAL PATHOGENS SEEN. Normal [facility] Comment on above: Performed By: #### A MM #### [facility] [address] [place] [address] Dr. Jeffrey Thomas Covid-19 PCR ([facility])on 05-04 SARS-CoV-2 (COVID-19) RNA REBECCA+probe Ql (Unsp spec) Not detected Normal NOT DETECTED [facility] Comment on above: Result Comment: When diagnostic [...] for this test is supported by the [place] of [employer] and Human Service's declaration that [...] used). Performed By: #### C MP #### [facility] [address] [place] [address] Dr. Jeffrey Thomas ER URINE PROFILEon 3 Bilirubin Ql (U) Negative Normal NEGATIVE [facility] Comment on above: Performed By: #### C MP #### [facility] [address] [place] [address] Dr. Jeffrey Thomas Clarity (U) CLEAR Normal CLEAR [facility] Comment on above: Performed By: #### C MP #### [facility] [address] [place] [address] Dr. Jeffrey Thomas Color (U) YELLOW Normal YELLOW [facility] Comment on above: Performed By: #### C MP #### [facility] [address] [place] [address] Dr. Jeffrey Thomas ERUAHD A micrscopic examination will be performed if indicated. Normal [facility] Comment on above: Performed By: #### C MP #### [facility] [address] [place] [address] Dr. Jeffrey Thomas Glucose Ql (U) Negative Normal NEGATIVE [facility] Comment on above: Performed By: #### C MP #### [facility] [address] [place] [address] Dr. Jeffrey Thomas Hemoglobin Ql (U) Negative Normal NEGATIVE [facility] Comment on above: Performed By: #### C MP #### [facility] [address] [address] [address] Jeffrey Thomas Ketones Ql (U) Negative Normal NEGATIVE [facility] Comment on above: Performed By: #### C MP #### [facility] [address] [place] [address] Dr. Jeffrey Thomas LEUKOCYTES Negative Normal NEGATIVE [facility] Comment on above: Performed By: #### C MP #### [facility] [address] [place] [address] Dr. Jeffrey Thomas Nitrite Ql (U) Negative Normal NEGATIVE [facility] Comment on above: Performed By: #### C MP #### [facility] [address] [place] [address] Dr. Jeffrey Thomas pH (U) 5.0 [pH] Normal 5-9 [facility] Comment on above: Performed By: #### C MP #### [facility] [address] [address] [address] Jeffrey Thomas SPEC GRAVITY 1.020 Normal 1.005-<=1.02 5 [facility] Comment on above: Performed By: #### C MP #### [facility] [address] [place] [address] Dr. Jeffrey Thomas UA PROTEIN Negative Normal NEGATIVE/ TRACE [facility] Comment on above: Performed By: #### C MP #### [facility] [address] [place] [address] Dr. Jeffrey Thomas UR MICRO IND NOT INDICATED Normal [facility] Comment on above: Performed By: #### C MP #### [facility] [address] [place] [address] Dr. Jeffrey Thomas Urobilinogen Qn (U) 0.2 {Bere'U}/dL Normal 0.2 - 1. 0 [facility] Comment on above: Performed By: #### C MP #### [facility] [address] [place] [address] Dr. Jeffrey Thomas INFLUENZA A AND B AGon 05-22 INFLUANEGH SEE BELOW Normal [facility] Comment on above: Result Comment: Nega tive for Flu A protein angiten. Infection due to Flu A cannot be ruled out. Flu A angiten in the sample may be below the detection limit of the test. Performed By: #### C MP #### [facility] [address] [place] [address] Dr. Jeffrey Thomas INFLUBNEG SEE BELOW Normal [facility] Comment on above: Result Comment: Nega tive for Flu B protein antigen. Infection due to Flu B cannot be ruled out. Flu B antigen in the sample may be below the detection limit of the test. Performed By: #### C MP #### [facility] [address] [place] [address] Dr. Jeffrey Thomas INFLUENZA A AG Negative Normal NEGATIVE SEE COMMENT [facility] Comment on above: Performed By: #### C MP #### [facility] [address] [place] [address] Dr. Jeffrey Thomas INFLUENZA B AG Negative Normal NEGATIVE SEE COMMENT [facility] Comment on above: Performed By: #### C MP #### [facility] [address] [place] [address] Dr. Jeffrey Thomas LACTATE/LACTIC ACIDon 2022 Lactate [Moles/Vol] 1.4 mmol/L Normal 0.4-1.9 [facility] Comment on above: Performed By: #### L ACT #### [facility] [address] [place] [address] Dr. Jeffrey Thomas Lactate [Moles/Vol] 1.1 mmol/L Normal 0.4-1.9 [facility] Comment on above: Performed By: #### T 4LC #### [facility] [address] [place] [address] Dr. Jeffrey Thomas LIPASEon 05-22-2022 Lipase [Catalytic activity/Vol] 21.0 U/L Critically low 73.0-393.0 [facility] Comment on above: Performed By: #### C MP #### [facility] [address] [place] [address] Dr. Jeffrey Thomas PROF 14(COMP METB)on 023 Albumin [Mass/Vol] 3.2 g/dL Critically low 3.4-5.0 [facility] Comment on above: Performed By: #### C MP #### [facility] [address] [place] [address] Dr. Jeffrey Thomas Albumin/Globulin [Mass ratio] 1.0 {ratio} Normal [facility] Comment on above: Performed By: #### C MP #### [facility] [address] [address] [address] Jeffrey Thomas ALP [Catalytic activity/Vol] 133 U/L Critically high 46-116 [facility] Comment on above: Performed By: #### C MP #### [facility] [address] [place] [address] Dr. Jeffrey Thomas ALT [Catalytic activity/Vol] 14 U/L Normal 14-59 [facility] Comment on above: Performed By: #### C MP #### [facility] [address] [place] [address] Dr. Jeffrey Thomas Anion gap [Moles/Vol] 17.3 mmol/L Normal [facility] Comment on above: Performed By: #### C MP #### [facility] [address] [place] [address] Dr. Jeffrey Thomas AST [Catalytic activity/Vol] 18 U/L Normal 15-37 [facility] Comment on above: Performed By: #### C MP #### [facility] [address] [place] [address] Dr. Jeffrey Thomas Bilirubin [Mass/Vol] 0.5 mg/dL Normal 0.2-1.0 [facility] Comment on above: Performed By: #### C MP #### [facility] [address] [place] [address] Dr. Jeffrey Thomas Calcium [Mass/Vol] 9.0 mg/dL Normal 8.5-10.1 [facility] Comment on above: Performed By: #### C MP #### [facility] [address] [place] [address] Dr. Jeffrey Thomas Chloride [Moles/Vol] 107 mmol/L Normal 98-107 [facility] Comment on above: Performed By: #### C MP #### [facility] [address] [address] [address] Jeffrey Thomas CO2 [Moles/Vol] 20.0 mmol/L Critically low 21.0-32.0 [facility] Comment on above: Performed By: #### C MP #### [facility] [address] [address] [address] Jeffrey Thomas Creatinine [Mass/Vol] 1.05 mg/dL Critically high 0.55-1.02 [facility] Comment on above: Performed By: #### C MP #### [facility] [address] [address] [address] Jeffrey Thomas EGFR-AF LEBANESE >60 Normal >=60 [facility] Comment on above: Performed By: #### C MP #### [facility] [address] [address] [address] Jeffrey Thomas EGFR-NON AF LEBANESE 53 mL/min/1.73m2 Critically low >=60 [facility] Comment on above: Performed By: #### C MP #### [facility] [address] [address] [address] Jeffrey Thomas Globulin (S) [Mass/Vol] 3.1 g/dL Normal [facility] Comment on above: Performed By: #### C MP #### [facility] [address] [address] [address] Jeffrey Thomas Glucose [Mass/Vol] 117 mg/dL Critically high 74-106 [facility] Comment on above: Performed By: #### C MP #### [facility] [address] [address] [address] Jeffrey Thomas Potassium [Moles/Vol] 4.3 mmol/L Normal 3.5-5.1 [facility] Comment on above: Performed By: #### C MP #### [facility] [address] [address] [address] Jeffrey Thomas Protein [Mass/Vol] 6.3 g/dL Critically low 6.4-8.2 [facility] Comment on above: Performed By: #### C MP #### [facility] [address] [address] [address] Jeffrey Thomas Sodium [Moles/Vol] 140 mmol/L Normal 136-145 [facility] Comment on above: Performed By: #### C MP #### [facility] [address] [address] [address] Jeffrey Thomas Urea nitrogen [Mass/Vol] 20.0 mg/dL Critically high 7.0-18.0 [facility] Comment on above: Performed By: #### C MP #### [facility] [address] [place] [address] Dr. Jeffrey Thomas Urea nitrogen/Creatinine [Mass ratio] 19.0 mg/mg Normal [facility] Comment on above: Performed By: #### C MP #### [facility] [address] [place] [address] Dr. Jeffrey Thomas PROTIMEon 05-22-2022 INR Coag (PPP) [Relative time] 0.99 {INR} Normal [facility] Comment on above: Performed By: #### C MP #### [facility] [address] [address] [address] Jeffrey Thomas INR GUIDELINES SEE BELOW Normal [facility] Comment on above: Result Comment: MERARI RED INR: 2.0 - 3.0 CONDITIONS NOT LISTED BELOW 2.5 - 3.5 FOR PROSTHETIC HEART VALVE REPLACEMENT 2.5 - 3.5 RECURRENT THROMBOSIS Performed By: #### C MP #### [facility] [address] [place] [address] Dr. Jeffrey Thomas PT Coag (PPP) [Time] 10.5 s Normal 9.0-11.6 [facility] Comment on above: Performed By: #### C MP #### [facility] [address] [place] [address] Dr. Jeffrey Thomas PTTon 05-22-2022 aPTT Coag (Bld) [Time] 25.9 s Normal 22.3-36.2 [facility] Comment on above: Performed By: #### C MP #### [facility] [address] [place], [place] [address] Dr. Jeffrey Thomas TROPONIN, HIGH SENSITIVITYon 05-22-2022 HSTROP 6.1 pg/mL Normal 4.0-51.3 [facility] Comment on above: Result Comment: CUT- OFF POINTS HAVE BEEN ESTABLISHED BASED ON THE FOURTH UNIVERSAL DEFINITIONS OF MYOCARDIAL INFARCTION. THE UPPER REFERENCE LIMIT (URL) OF TROPONIN, DEFINED THE 99TH PERCENTILE OF cTnI DISTRIBUTION IN A REFERENCE POPULATION, HAS BEEN CONFIRMED THE DECISION THRESHOLD FOR [place] DIAGNOSIS. Performed By: #### C MP #### [facility] [address] [place], [place] [address] Dr. Jeffrey Thomas US SINGLE QUAD RT [...] by: ABDIAS WEN Date: 2022-05-22 17:32 Normal [facility] XR CHEST 1 Von 05-22-2022 XR CHEST [...] by: MELLY SEO Date: 2022-05-22 15:32 Normal [facility] PT Coag (PPP) [Time]on 05-04 INR Coag (PPP) [Relative time] 1.7 {INR} Normal <=5.0 [facility] Comment on above: Result Comment: The recommended therapeutic INR range for most cardiac indications is 2.0-3.0 For high intensity therapy (i.e. mechanical heart valves), the recommended range is 2.5-3.5 Performed By: #### 5 902-2 #### [facility] [address] [place] [address] Prothrombin timeon 3 PT Coag (PPP) [Time] 18.8 s High 11.9-14.7 [facility] Comment on above: Performed By: #### 5 902-2 #### [facility] [address] [place] [address] Basic metabolic 2000 panelon 05-03-2022 Anion gap [Moles/Vol] 8 mmol/L Normal 6-18 [facility] Comment on above: Performed By: #### 2 4321-2 #### [facility] [address] [place] [address] Calcium [Mass/Vol] 8.6 mg/dL Low 8.9-10.3 [facility] Comment on above: Performed By: #### 2 4321-2 #### [facility] [address] [place] [address] Chloride [Moles/Vol] 109 mmol/L High 98-107 [facility] Comment on above: Performed By: #### 2 4321-2 #### [facility] [place] [facility] [address] [place] [address] CO2 [Moles/Vol] 25 mmol/L Normal 22-32 [facility] Comment on above: Performed By: #### 2 4321-2 #### [facility] [place] [facility] [address] [place] [address] Creatinine [Mass/Vol] 1.07 mg/dL Normal 0.60-1.30 [facility] Comment on above: Performed By: #### 2 4321-2 #### [facility] [place] [facility] [address] [place] [address] GFR/1.73 sq M.predicted among non-blacks MDRD (S/P/Bld) [Vol rate/Area] 58 mL/min/{1.73_m2} Low >=60 [facility] Comment on above: Result Comment: Effe ctive January 08, 2022, calculation based on the?Chronic Kidney Disease Epidemiology Collaboration (CKD-EPI) equation refit?without adjustment for race. Performed By: #### 2 4321-2 #### [facility] [place] [facility] [address] [place] [address] Glucose [Mass/Vol] 78 mg/dL Normal 70-99 [facility] Comment on above: Performed By: #### 2 4321-2 #### [facility] [place] [facility] [address] [place] [address] Potassium [Moles/Vol] 5.1 mmol/L Normal 3.6-5.1 [facility] Comment on above: Performed By: #### 2 4321-2 #### [facility] [place] [facility] [address] [place] [address] Sodium [Moles/Vol] 142 mmol/L Normal 136-145 [facility] Comment on above: Performed By: #### 2 4321-2 #### [facility] [place] [facility] [address] [place] [address] Urea nitrogen [Mass/Vol] 35 mg/dL High 8-20 [facility] Comment on above: Performed By: #### 2 4321-2 #### [facility] [place] [facility] [address] [place] [address] Urea nitrogen/Creatinine [Mass ratio] 32.7 mg/mg High 12.0-20.0 [facility] Comment on above: Performed By: #### 2 4321-2 #### [facility] [place] [facility] [address] [place] [address] Hemogram and platelets WO di fferential panel (Bld)on 05-03-2022 Erythrocyte distribution width (RBC) [Ratio] 16.4 % High 11.0-14.8 [facility] Comment on above: Performed By: #### 2 4321-2 #### [facility] [place] [facility] [address] [place] [address] Hematocrit (Bld) [Volume fraction] 33.4 % Low 34.3-47.9 [facility] Comment on above: Performed By: #### 2 4321-2 #### [facility] [place] [facility] [address] [place] [address] Hemoglobin (Bld) [Mass/Vol] 10.0 g/dL Low 12.0-16.0 [facility] Comment on above: Performed By: #### 2 1-2 #### [facility] [place] [facility] [address] [place] [address] MCH 27.2 pcg Normal 27.0-34.0 [facility] Comment on above: Performed By: #### 2 4321-2 #### [facility] [place] [facility] [address] [place] [address] MCHC (RBC) [Mass/Vol] 29.9 g/dL Low 30.8-35.3 [facility] Comment on above: Performed By: #### 2 4321-2 #### [facility] [place] [facility] [address] [place] [address] MCV (RBC) [Entitic vol] 91.0 fL Normal 80.0-97.0 [facility] Comment on above: Performed By: #### 2 4321-2 #### [facility] [place] [facility] [address] [place] [address] Platelet mean volume (Bld) [Entitic vol] 11.6 fL Normal 6.2-12.1 [facility] Comment on above: Performed By: #### 2 4321-2 #### [facility] [place] [facility] [address] [place] [address] Platelets (Bld) [#/Vol] 283 10*3/uL Normal 142-424 [facility] Comment on above: Performed By: #### 2 4321-2 #### [facility] [place] [facility] [address] [place] [address] RBC (Bld) [#/Vol] 3.67 10*6/uL Low 3.74-5.34 [facility] Comment on above: Performed By: #### 2 4321-2 #### [facility] [place] [facility] [address] [place] [address] WBC (Bld) [#/Vol] 5.5 10*3/uL Normal 4.6-10.2 [facility] Comment on above: Performed By: #### 2 4321-2 #### [facility] [place] [facility] [address] [place] [address] PT Coag (PPP) [Time]on 05-03 INR Coag (PPP) [Relative time] 1.6 {INR} Normal <=5.0 [facility] Comment on above: Result Comment: The recommended therapeutic INR range for most cardiac indications is 2.0-3.0 For high intensity therapy (i.e. mechanical heart valves), the recommended range is 2.5-3.5 Performed By: #### 5 902-2 #### [facility] [place] [facility] [address] [place] [address] Prothrombin timeon PT Coag (PPP) [Time] 17.7 s High 11.9-14.7 [facility] Comment on above: Performed By: #### 5 902-2 #### [facility] [address] [place] [address] Nuclear IgG IA Ql (S)on 04-04 Bacteria identified Cx Nom (U) 1 ORGANISM 202 Abnormal >[id number] CFU/mL Escherichia coli The organism value for [...] above: Performed By: #### 2 4321-2 #### [facility] [address] [place] [address] Bacteria, Urine Many Abnormal None [facility] Comment on above: Performed By: #### 2 4321-2 #### [facility] [address] [place] [address] Bilirubin, Urine Negative Normal Negative [facility] Comment on above: Performed By: #### 2 4321-2 #### [facility] [address] [place] [address] Blood, Urine 3+ Abnormal Negative [facility] Comment on above: Performed By: #### 2 4321-2 #### [facility] [place] [address] [place] [address] Clarity (U) Slightly Cloudy Abnormal Clear [facility] Comment on above: Performed By: #### 2 4321-2 #### [facility] [place] [facility] [address] [place] [address] Color (U) Renata Abnormal Yellow [facility] Comment on above: Performed By: #### 2 4321-2 #### [facility] [place] [facility] [address] [place] [address] Glucose Ql (U) Normal Normal Normal [facility] Comment on above: Performed By: #### 2 4321-2 #### [facility] [place] [facility] [address] [place] [address] Ketones Ql (U) Negative Normal Negative [facility] Comment on above: Performed By: #### 2 4321-2 #### [facility] [place] [facility] [address] [place] [address] Leukocytes, Urine 250 WBCs/mcL Abnormal Negative [facility] Comment on above: Performed By: #### 2 1-2 #### [facility] [place] [facility] [address] [place] [address] Mucus, UA Rare Abnormal None [facility] Comment on above: Performed By: #### 2 4321-2 #### [facility] [place] [facility] [address] [place] [address] Nitrite, Urine Negative Normal Negative [facility] Comment on above: Performed By: #### 2 4321-2 #### [facility] [place] [facility] [address] [place] [address] pH (U) 6.0 [pH] Normal 5.0-8.0 [facility] Comment on above: Performed By: #### 2 4321-2 #### [facility] [place] [facility] [address] [place] [address] Protein (U) [Mass/Vol] 30 mg/dL Abnormal Negative [facility] Comment on above: Performed By: #### 2 4321-2 #### [facility] [address] [place] [address]213 RBC LM.HPF (Urine sed) [#/Area] 362 /[HPF] High 0-5 [facility] Comment on above: Performed By: #### 2 4321-2 #### [facility] [address] [place] [address] Specific [place] Urine 1.012 Normal 1.002-1.030 [facility] Comment on above: Performed By: #### 2 4321-2 #### [facility] [address] [place] [address] Squamous Epithelial, Urine Rare Abnormal None [facility] Comment on above: Performed By: #### 2 4321-2 #### [facility] [address] [place] [address]851 Urobilinogen, Urine Normal Normal Normal [facility] Comment on above: Performed By: #### 2 4321-2 #### [facility] [address] [place] [address] 13487 WBC LM.HPF (Urine sed) [#/Area] 47 /[HPF] High 0-5 [facility] Comment on above: Performed By: #### 2 4321-2 #### [facility] [address] [place] [address] PT Coag (PPP) [Time]on 05-02 INR Coag (PPP) [Relative time] 1.4 {INR} Normal <=5.0 [facility] Comment on above: Result Comment: The recommended therapeutic INR range for most cardiac indications is 2.0-3.0 For high intensity therapy (i.e. mechanical heart valves), the recommended range is 2.5-3.5 Performed By: #### 5 902-2 #### [facility] [address] [place] [address] Prothrombin timeon 3 PT Coag (PPP) [Time] 15.9 s High 11.9-14.7 [facility] Comment on above: Performed By: #### 5 902-2 #### [facility] [place] [facility] [address] [place] [address] Basic metabolic 2000 panelon 05-01-2022 Anion gap [Moles/Vol] 8 mmol/L Normal 6-18 [facility] Comment on above: Performed By: #### 5 902-2 #### [facility] [place] [facility] [address] [place] [address] Calcium [Mass/Vol] 8.6 mg/dL Low 8.9-10.3 [facility] Comment on above: Performed By: #### 5 902-2 #### [facility] [place] [facility] [address] [place] [address] Chloride [Moles/Vol] 108 mmol/L High 98-107 [facility] Comment on above: Performed By: #### 5 902-2 #### [facility] [place] [facility] [address] [place] [address] CO2 [Moles/Vol] 25 mmol/L Normal 22-32 [facility] Comment on above: Performed By: #### 5 902-2 #### [facility] [place] [facility] [address] [place] [address] Creatinine [Mass/Vol] 0.97 mg/dL Normal 0.60-1.30 [facility] Comment on above: Performed By: #### 5 902-2 #### [facility] [place] [facility] [address] [place] [address] GFR/1.73 sq M.predicted among non-blacks MDRD (S/P/Bld) [Vol rate/Area] 65 mL/min/{1.73_m2} Normal >=60 [facility] Comment on above: Result Comment: Effe ctive January 08, 2022, calculation based on the?Chronic Kidney Disease Epidemiology Collaboration (CKD-EPI) equation refit?without adjustment for race. Performed By: #### 5 902-2 #### [facility] [place] [facility] [address] [place] [address] Glucose [Mass/Vol] 82 mg/dL Normal 70-99 [facility] Comment on above: Performed By: #### 5 902-2 #### [facility] [place] [facility] [address] [place] [address] Potassium [Moles/Vol] 4.5 mmol/L Normal 3.6-5.1 [facility] Comment on above: Performed By: #### 5 902-2 #### [facility] [place] [facility] [address] [place] [address] Sodium [Moles/Vol] 141 mmol/L Normal 136-145 [facility] Comment on above: Performed By: #### 5 902-2 #### [facility] [place] [facility] [address] [place] [address]111 Urea nitrogen [Mass/Vol] 34 mg/dL High 8-20 [facility] Comment on above: Performed By: #### 5 902-2 #### [facility] [place] [facility] [address] [place] [address]116 Urea nitrogen/Creatinine [Mass ratio] 35.1 mg/mg High 12.0-20.0 [facility] Comment on above: Performed By: #### 5 902-2 #### [facility] [place] [facility] [address] [place] [address] Hemogram and platelets WO di fferential panel (Bld)on 05-01-2022 Erythrocyte distribution width (RBC) [Ratio] 16.5 % High 11.0-14.8 [facility] Comment on above: Performed By: #### 2 4321-2 #### [facility] [place] [facility] [address] [place] [address] Hematocrit (Bld) [Volume fraction] 33.7 % Low 34.3-47.9 [facility] Comment on above: Performed By: #### 2 4321-2 #### [facility] [place] [facility] [address] [place] [address]11 Hemoglobin (Bld) [Mass/Vol] 10.3 g/dL Low 12.0-16.0 [facility] Comment on above: Performed By: #### 2 4321-2 #### [facility] [place] [facility] [address] [place] [address]45 MCH 28.1 pcg Normal 27.0-34.0 [facility] Comment on above: Performed By: #### 2 4320-2 #### [facility] [place] [facility] [address] [place] [address]8660 MCHC (RBC) [Mass/Vol] 30.6 g/dL Low 30.8-35.3 [facility] Comment on above: Performed By: #### 2 4320-2 #### [facility] [place] [facility] [address] [place] [address] 38795 MCV (RBC) [Entitic vol] 92.1 fL Normal 80.0-97.0 [facility] Comment on above: Performed By: #### 2 1-2 #### [facility] [place] [facility] [address] [place] [address]1965 Platelet mean volume (Bld) [Entitic vol] 11.6 fL Normal 6.2-12.1 [facility] Comment on above: Performed By: #### 2 1-2 #### [facility] [place] [facility] [address] [place] [address]57 Platelets (Bld) [#/Vol] 275 10*3/uL Normal 142-424 [facility] Comment on above: Performed By: #### 2 1-2 #### [facility] [place] [facility] [address] [place] [address] 83670 RBC (Bld) [#/Vol] 3.66 10*6/uL Low 3.74-5.34 [facility] Comment on above: Performed By: #### 2 1-2 #### [facility] [address] [place] [address] WBC (Bld) [#/Vol] 5.9 10*3/uL Normal 4.6-10.2 [facility] Comment on above: Performed By: #### 2 4321-2 #### [facility] [address] [place] [address]28 PT Coag (PPP) [Time]on 05-01 INR Coag (PPP) [Relative time] 1.3 {INR} Normal <=5.0 [facility] Comment on above: Result Comment: The recommended therapeutic INR range for most cardiac indications is 2.0-3.0 For high intensity therapy (i.e. mechanical heart valves), the recommended range is 2.5-3.5 Performed By: #### 2 4321-2 #### [facility] [address] [place] [address]603 Prothrombin timeon 3 PT Coag (PPP) [Time] 15.6 s High 11.9-14.7 [facility] Comment on above: Performed By: #### 2 4321-2 #### [facility] [address] [place] [address] 28211 PT Coag (PPP) [Time]on 04-30 INR Coag (PPP) [Relative time] 1.4 {INR} Normal <=5.0 [facility] Comment on above: Result Comment: The recommended therapeutic INR range for most cardiac indications is 2.0-3.0 For high intensity therapy (i.e. mechanical heart valves), the recommended range is 2.5-3.5 Performed By: #### 5 902-2 #### [facility] [address] [place] [address] Prothrombin timeon 3 PT Coag (PPP) [Time] 16.0 s High 11.9-14.7 [facility] Comment on above: Performed By: #### 5 902-2 #### [facility] [place] [facility] [address] [place] [address] Basic metabolic 2000 panelon 04-29-2022 Anion gap [Moles/Vol] 6 mmol/L Normal 6-18 [facility] Comment on above: Performed By: #### 5 902-2 #### [facility] [place] [facility] [address] [place] [address]10 Calcium [Mass/Vol] 8.7 mg/dL Low 8.9-10.3 [facility] Comment on above: Performed By: #### 5 902-2 #### [facility] [place] [facility] [address] [place] [address]386 Chloride [Moles/Vol] 103 mmol/L Normal 98-107 [facility] Comment on above: Performed By: #### 5 902-2 #### [facility] [place] [facility] [address] [place] [address]704 CO2 [Moles/Vol] 28 mmol/L Normal 22-32 [facility] Comment on above: Performed By: #### 5 902-2 #### [facility] [place] [facility] [address] [place] [address] 89082 Creatinine [Mass/Vol] 1.14 mg/dL Normal 0.60-1.30 [facility] Comment on above: Performed By: #### 5 902-2 #### [facility] [place] [facility] [address] [place] [address] 61862 GFR/1.73 sq M.predicted among non-blacks MDRD (S/P/Bld) [Vol rate/Area] 54 mL/min/{1.73_m2} Low >=60 [facility] Comment on above: Result Comment: Effe ctive January 08, 2022, calculation based on the?Chronic Kidney Disease Epidemiology Collaboration (CKD-EPI) equation refit?without adjustment for race. Performed By: #### 5 902-2 #### [facility] [place] [facility] [address] [place] [address] 67661 Glucose [Mass/Vol] 90 mg/dL Normal 70-99 [facility] Comment on above: Performed By: #### 5 902-2 #### [facility] [address] [place] [address] 07314 Potassium [Moles/Vol] 4.8 mmol/L Normal 3.6-5.1 [facility] Comment on above: Performed By: #### 5 902-2 #### [facility] [place] [facility] [address] [place] [address] 43864 Sodium [Moles/Vol] 137 mmol/L Normal 136-145 [facility] Comment on above: Performed By: #### 5 902-2 #### [facility] [address] [place] [address] 66356 Urea nitrogen [Mass/Vol] 35 mg/dL High 8-20 [facility] Comment on above: Performed By: #### 5 902-2 #### [facility] [place] [facility] [address] [place] [address] 08538 Urea nitrogen/Creatinine [Mass ratio] 30.7 mg/mg High 12.0-20.0 [facility] Comment on above: Performed By: #### 5 902-2 #### [facility] [address] [place] [address] 53781 PT Coag (PPP) [Time]on 04-29 INR Coag (PPP) [Relative time] 1.4 {INR} Normal <=5.0 [facility] Comment on above: Result Comment: The recommended therapeutic INR range for most cardiac indications is 2.0-3.0 For high intensity therapy (i.e. mechanical heart valves), the recommended range is 2.5-3.5 Performed By: #### 5 902-2 #### [facility] [place] [facility] [address] [place] [address] 41021 Prothrombin timeon PT Coag (PPP) [Time] 16.5 s High 11.9-14.7 [facility] Comment on above: Performed By: #### 5 902-2 #### [facility] [address] [place] [address] PT Coag (PPP) [Time]on 04-28 INR Coag (PPP) [Relative time] 1.3 {INR} Normal <=5.0 [facility] Comment on above: Result Comment: The recommended therapeutic INR range for most cardiac indications is 2.0-3.0 For high intensity therapy (i.e. mechanical heart valves), the recommended range is 2.5-3.5 Performed By: #### 5 902-2 #### [facility] [place] [facility] [address] [place] [address] 32384 Prothrombin timeon PT Coag (PPP) [Time] 15.6 s High 11.9-14.7 [facility] Comment on above: Performed By: #### 5 902-2 #### [facility] [place] [facility] [address] [place] [address] 74358 Basic metabolic 2000 panelon 04-27-2022 Anion gap [Moles/Vol] 10 mmol/L Normal 6-18 [facility] Comment on above: Performed By: #### 2 4321-2 #### [facility] [address] [place] [address] 64851 Calcium [Mass/Vol] 8.4 mg/dL Low 8.9-10.3 [facility] Comment on above: Performed By: #### 2 4321-2 #### [facility] [address] [place] [address] 95762 Chloride [Moles/Vol] 105 mmol/L Normal 98-107 [facility] Comment on above: Performed By: #### 2 4321-2 #### [facility] [address] [place] [address] 33326 CO2 [Moles/Vol] 22 mmol/L Normal 22-32 [facility] Comment on above: Performed By: #### 2 4321-2 #### [facility] ([facility] [address] [place] [address] Creatinine [Mass/Vol] 1.12 mg/dL Normal 0.60-1.30 [facility] Comment on above: Performed By: #### 2 4321-2 #### [facility] [place] [facility] [address] [place] [address] GFR/1.73 sq M.predicted among non-blacks MDRD (S/P/Bld) [Vol rate/Area] 55 mL/min/{1.73_m2} Low >=60 [facility] Comment on above: Result Comment: Effe ctive January 08, 2022, calculation based on the?Chronic Kidney Disease Epidemiology Collaboration (CKD-EPI) equation refit?without adjustment for race. Performed By: #### 2 4321-2 #### [facility] [address] [place] [address] Glucose [Mass/Vol] 82 mg/dL Normal 70-99 [facility] Comment on above: Performed By: #### 2 4321-2 #### [facility] [address] [place] [address] Potassium [Moles/Vol] 5.6 mmol/L High 3.6-5.1 [facility] Comment on above: Performed By: #### 2 4321-2 #### [facility] [address] [place] [address] Sodium [Moles/Vol] 137 mmol/L Normal 136-145 [facility] Comment on above: Performed By: #### 2 4321-2 #### [facility] [place] [facility] [address] [place] [address] Urea nitrogen [Mass/Vol] 35 mg/dL High 8-20 [facility] Comment on above: Performed By: #### 2 4321-2 #### [facility] [place] [facility] [address] [place] [address] Urea nitrogen/Creatinine [Mass ratio] 31.3 mg/mg High 12.0-20.0 [facility] Comment on above: Performed By: #### 2 4321-2 #### [facility] ([facility]) [facility] [address] [place] [address] 71605 PT Coag (PPP) [Time]on 04-27 INR Coag (PPP) [Relative time] 1.2 {INR} Normal <=5.0 [facility] Comment on above: Result Comment: The recommended therapeutic INR range for most cardiac indications is 2.0-3.0 For high intensity therapy (i.e. mechanical heart valves), the recommended range is 2.5-3.5 Performed By: #### 5 902-2 #### [facility] ([facility] [address] [place] [address] 99625 Prothrombin timeon 3 PT Coag (PPP) [Time] 14.5 s Normal 11.9-14.7 [facility] Comment on above: Performed By: #### 5 902-2 #### [facility] ([facility] [address] [place] [address] 85680 PT Coag (PPP) [Time]on 04-26 INR Coag (PPP) [Relative time] 1.2 {INR} Normal <=5.0 [facility] Comment on above: Result Comment: The recommended therapeutic INR range for most cardiac indications is 2.0-3.0 For high intensity therapy (i.e. mechanical heart valves), the recommended range is 2.5-3.5 Performed By: #### 2 4321-2 #### [facility] ([facility] [address] [place] [address] 02933 Prothrombin timeon 3 PT Coag (PPP) [Time] 14.3 s Normal 11.9-14.7 [facility] Comment on above: Performed By: #### 2 4321-2 #### [facility] ([facility] [address] [place] [address] 94997 Basic metabolic 2000 panelon 04-25-2022 Anion gap [Moles/Vol] 7 mmol/L Normal 6-18 [facility] Comment on above: Performed By: #### 2 4321-2 #### [facility] [place] [facility] [address] [place] [address] 23977 Calcium [Mass/Vol] 8.5 mg/dL Low 8.9-10.3 [facility] Comment on above: Performed By: #### 2 4321-2 #### [facility] [place] [facility] [address] [place] [address] 35626 Chloride [Moles/Vol] 104 mmol/L Normal 98-107 [facility] Comment on above: Performed By: #### 2 4321-2 #### [facility] [address] [place] [address] 41130 CO2 [Moles/Vol] 30 mmol/L Normal 22-32 [facility] Comment on above: Performed By: #### 2 4321-2 #### [facility] [address] [place] [address] 97106 Creatinine [Mass/Vol] 1.00 mg/dL Normal 0.60-1.30 [facility] Comment on above: Performed By: #### 2 4321-2 #### [facility] [address] [place] [address] 87185 GFR/1.73 sq M.predicted among non-blacks MDRD (S/P/Bld) [Vol rate/Area] 63 mL/min/{1.73_m2} Normal >=60 [facility] Comment on above: Result Comment: Effe ctive January 08, 2022, calculation based on the?Chronic Kidney Disease Epidemiology Collaboration (CKD-EPI) equation refit?without adjustment for race. Performed By: #### 2 4321-2 #### [facility] [address] [place] [address] 76351 Glucose [Mass/Vol] 89 mg/dL Normal 70-99 [facility] Comment on above: Performed By: #### 2 4321-2 #### [facility] [place] [facility] [address] [place] [address], [place] [address] Potassium [Moles/Vol] 5.2 mmol/L High 3.6-5.1 [facility] Comment on above: Performed By: #### 2 4321-2 #### [facility] [address] [place] [address] 21032 Sodium [Moles/Vol] 141 mmol/L Normal 136-145 [facility] Comment on above: Performed By: #### 2 4321-2 #### [facility] [address] [place] [address] 09157 Urea nitrogen [Mass/Vol] 25 mg/dL High 8-20 [facility] Comment on above: Performed By: #### 2 4321-2 #### [facility] [address] [place] [address] 33431 Urea nitrogen/Creatinine [Mass ratio] 25.0 mg/mg High 12.0-20.0 [facility] Comment on above: Performed By: #### 2 4321-2 #### [facility] [address] [place] [address] 16573 PT Coag (PPP) [Time]on 04-25 INR Coag (PPP) [Relative time] 1.2 {INR} Normal <=5.0 [facility] Comment on above: Result Comment: The recommended therapeutic INR range for most cardiac indications is 2.0-3.0 For high intensity therapy (i.e. mechanical heart valves), the recommended range is 2.5-3.5 Performed By: #### 5 902-2 #### [facility] [address] [place] [address] 88227 Prothrombin timeon PT Coag (PPP) [Time] 14.0 s Normal 11.9-14.7 [facility] Comment on above: Performed By: #### 5 902-2 #### [facility] [address] [place] [address] 13973 Basic metabolic 2000 panelon 04-24-2022 Anion gap [Moles/Vol] 7 mmol/L Normal 6-18 [facility] Comment on above: Performed By: #### 2 4321-2 #### [facility] [address] [place] [address] Calcium [Mass/Vol] 8.7 mg/dL Low 8.9-10.3 [facility] Comment on above: Performed By: #### 2 4321-2 #### [facility] [address] [place] [address] 46398 Chloride [Moles/Vol] 106 mmol/L Normal 98-107 [facility] Comment on above: Performed By: #### 2 4321-2 #### [facility] [address] [place] [address] 31989 CO2 [Moles/Vol] 28 mmol/L Normal 22-32 [facility] Comment on above: Performed By: #### 2 4321-2 #### [facility] [address] [place] [address] 67399 Creatinine [Mass/Vol] 1.14 mg/dL Normal 0.60-1.30 [facility] Comment on above: Performed By: #### 2 4321-2 #### [facility] [address] [place] [address] 19771 GFR/1.73 sq M.predicted among non-blacks MDRD (S/P/Bld) [Vol rate/Area] 54 mL/min/{1.73_m2} Low >=60 [facility] Comment on above: Result Comment: Effe ctive January 08, 2022, calculation based on the?Chronic Kidney Disease Epidemiology Collaboration (CKD-EPI) equation refit?without adjustment for race. Performed By: #### 2 4321-2 #### [facility] [address] [place] [address] 79465 Glucose [Mass/Vol] 95 mg/dL Normal 70-99 [facility] Comment on above: Performed By: #### 2 4321-2 #### [facility] [address] [place] [address] Potassium [Moles/Vol] 5.3 mmol/L High 3.6-5.1 [facility] Comment on above: Performed By: #### 2 4321-2 #### [facility] [address] [place] [address] 99773 Sodium [Moles/Vol] 141 mmol/L Normal 136-145 [facility] Comment on above: Performed By: #### 2 4321-2 #### [facility] [address] [place] [address] 64233 Urea nitrogen [Mass/Vol] 25 mg/dL High 8-20 [facility] Comment on above: Performed By: #### 2 4321-2 #### [facility] ([facility] [address] [place] [address] 09168 Urea nitrogen/Creatinine [Mass ratio] 21.9 mg/mg High 12.0-20.0 [facility] Comment on above: Performed By: #### 2 4321-2 #### [facility] ([facility] [address] [place] [address] 95306 Hemogram and platelets WO di fferential panel (Bld)on 04-24-2022 Erythrocyte distribution width (RBC) [Ratio] 16.9 % High 11.0-14.8 [facility] Comment on above: Performed By: #### 2 4317-0 #### [facility] [address] [place] [address] 13051 Hematocrit (Bld) [Volume fraction] 35.3 % Normal 34.3-47.9 [facility] Comment on above: Performed By: #### 2 4317-0 #### [facility] [address] [place] [address] 21989 Hemoglobin (Bld) [Mass/Vol] 10.9 g/dL Low 12.0-16.0 [facility] Comment on above: Performed By: #### 2 4317-0 #### [facility] [address] [place] [address] Immature Platelet Fraction 14.0 % High 1.4-10.8 [facility] Comment on above: Performed By: #### 2 4317-0 #### [facility] [place] [facility] [address] [place] [address] MCH 28.9 pcg Normal 27.0-34.0 [facility] Comment on above: Performed By: #### 2 7-0 #### [facility] [place] [facility] [address] [place] [address] 22287 MCHC (RBC) [Mass/Vol] 30.9 g/dL Normal 30.8-35.3 [facility] Comment on above: Performed By: #### 2 4317-0 #### [facility] [place] [facility] [address] [place] [address] 06267 MCV (RBC) [Entitic vol] 93.6 fL Normal 80.0-97.0 [facility] Comment on above: Performed By: #### 2 4317-0 #### [facility] [place] [facility] [address] [place] [address] 78698 Platelet mean volume (Bld) [Entitic vol] 12.9 fL High 6.2-12.1 [facility] Comment on above: Performed By: #### 2 4317-0 #### [facility] [place] [facility] [address] [place] [address] 61867 Platelets (Bld) [#/Vol] 160 10*3/uL Normal 142-424 [facility] Comment on above: Performed By: #### 2 4317-0 #### [facility] [address] [place] [address] 68711 RBC (Bld) [#/Vol] 3.77 10*6/uL Normal 3.74-5.34 [facility] Comment on above: Performed By: #### 2 4317-0 #### [facility] [place] [facility] [address] [place] [address] 76070 WBC (Bld) [#/Vol] 7.7 10*3/uL Normal 4.6-10.2 [facility] Comment on above: Performed By: #### 2 4317-0 #### [facility] [address] [place] [address] 97018 PT Coag (PPP) [Time]on 04-24 INR Coag (PPP) [Relative time] 1.1 {INR} Normal <=5.0 [facility] Comment on above: Result Comment: The recommended therapeutic INR range for most cardiac indications is 2.0-3.0 For high intensity therapy (i.e. mechanical heart valves), the recommended range is 2.5-3.5 Performed By: #### 2 4321-2 #### [facility] [address] [place] [address] 79934 Prothrombin timeon PT Coag (PPP) [Time] 13.9 s Normal 11.9-14.7 [facility] Comment on above: Performed By: #### 2 4321-2 #### [facility] [address] [place] [address] 61427 Basic metabolic 2000 panelon 04-23-2022 Anion gap [Moles/Vol] 8 mmol/L Normal 6-18 [facility] Comment on above: Performed By: #### 2 4321-2 #### [facility] [address] [place] [address] 57287 Calcium [Mass/Vol] 8.5 mg/dL Low 8.9-10.3 [facility] Comment on above: Performed By: #### 2 4321-2 #### [facility] [address] [place] [address] 93890 Chloride [Moles/Vol] 106 mmol/L Normal 98-107 [facility] Comment on above: Performed By: #### 2 4321-2 #### [facility] [address] [place] [address] 61444 CO2 [Moles/Vol] 28 mmol/L Normal 22-32 [facility] Comment on above: Performed By: #### 2 4321-2 #### [facility] [address] [place] [address] 92152 Creatinine [Mass/Vol] 1.01 mg/dL Normal 0.60-1.30 [facility] Comment on above: Performed By: #### 2 4321-2 #### [facility] [address] [place] [address] 79846 GFR/1.73 sq M.predicted among non-blacks MDRD (S/P/Bld) [Vol rate/Area] 62 mL/min/{1.73_m2} Normal >=60 [facility] Comment on above: Result Comment: Effe ctive January 08, 2022, calculation based on the?Chronic Kidney Disease Epidemiology Collaboration (CKD-EPI) equation refit?without adjustment for race. Performed By: #### 2 4321-2 #### [facility] [address] [place] [address] 35096 Glucose [Mass/Vol] 108 mg/dL High 70-99 [facility] Comment on above: Performed By: #### 2 4321-2 #### [facility] [address] [place] [address] 32414 Potassium [Moles/Vol] 5.0 mmol/L Normal 3.6-5.1 [facility] Comment on above: Performed By: #### 2 4321-2 #### [facility] [address] [place] [address] 47594 Sodium [Moles/Vol] 142 mmol/L Normal 136-145 [facility] Comment on above: Performed By: #### 2 4321-2 #### [facility] [address] [place] [address] 43698 Urea nitrogen [Mass/Vol] 23 mg/dL High 8-20 [facility] Comment on above: Performed By: #### 2 4321-2 #### [facility] [address] [place] [address] 03256 Urea nitrogen/Creatinine [Mass ratio] 22.8 mg/mg High 12.0-20.0 [facility] Comment on above: Performed By: #### 2 4321-2 #### [facility] [place] [facility] [address] [place] [address] 07167 Hemogram and platelets WO di fferential panel (Bld)on 04-23-2022 Basophils (Bld) [#/Vol] 0.06 10*3/uL Normal 0.00-0.20 [facility] Comment on above: Performed By: #### 2 4321-2 #### [facility] ([facility] [address] [place] [address] 19748 Basophils/100 WBC (Bld) 0.7 % Normal 0.0-2.0 [facility] Comment on above: Performed By: #### 2 4321-2 #### [facility] ([facility] [address] [place] [address] 82855 Eosinophils (Bld) [#/Vol] 0.17 10*3/uL Normal 0.00-0.70 [facility] Comment on above: Performed By: #### 2 4321-2 #### [facility] ([facility] [address] [place] [address] 31684 Eosinophils/100 WBC (Bld) 2.1 % Normal 0.0-7.0 [facility] Comment on above: Performed By: #### 2 4321-2 #### [facility] ([facility] [address] [place] [address] 95860 Erythrocyte distribution width (RBC) [Ratio] 17.0 % High 11.0-14.8 [facility] Comment on above: Performed By: #### 2 4321-2 #### [facility] ([facility] [address] [place] [address] 44059 Hematocrit (Bld) [Volume fraction] 34.1 % Low 34.3-47.9 [facility] Comment on above: Performed By: #### 2 4321-2 #### [facility] [address] [place] [address] 26372 Hemoglobin (Bld) [Mass/Vol] 10.4 g/dL Low 12.0-16.0 [facility] Comment on above: Performed By: #### 2 4320-2 #### [facility] [place] [facility] [address] [place] [address] 65930 Immature granulocytes (Bld) [#/Vol] 0.02 10*3/uL Normal 0.00-0.10 [facility] Comment on above: Performed By: #### 2 4320-2 #### [facility] [address] [place] [address] 66308 Immature granulocytes/100 WBC (Bld) 0.2 % Normal 0.0-1.2 [facility] Comment on above: Performed By: #### 2 4320-2 #### [facility] [address] [place] [address] 00628 Lymphocytes (Bld) [#/Vol] 2.24 10*3/uL Normal 1.00-4.80 [facility] Comment on above: Performed By: #### 2 4320-2 #### [facility] [address] [place] [address] 68047 Lymphocytes/100 WBC (Bld) 27.4 % Normal 17.9-49.6 [facility] Comment on above: Performed By: #### 2 1-2 #### [facility] [address] [place] [address] 60387 MCH 28.4 pcg Normal 27.0-34.0 [facility] Comment on above: Performed By: #### 2 1-2 #### [facility] [address] [place] [address] 92462 MCHC (RBC) [Mass/Vol] 30.5 g/dL Low 30.8-35.3 [facility] Comment on above: Performed By: #### 2 4321-2 #### [facility] [place] [facility] [address] [place] [address] MCV (RBC) [Entitic vol] 93.2 fL Normal 80.0-97.0 [facility] Comment on above: Performed By: #### 2 4321-2 #### [facility] [place] [facility] [address] [place] [address] Monocytes (Bld) [#/Vol] 0.98 10*3/uL High 0.00-0.90 [facility] Comment on above: Performed By: #### 2 1-2 #### [facility] [place] [facility] [address] [place] [address] 59967 Monocytes/100 WBC (Bld) 12.0 % Normal 0.0-12.0 [facility] Comment on above: Performed By: #### 2 1-2 #### [facility] [facility] [address] [place] [address] Neutrophils Absolute 4.71 K/mcL Normal 1.80-7.70 [facility] Comment on above: Performed By: #### 2 1-2 #### [facility] [place] [facility] [address] [place] [address]105 Neutrophils/100 WBC (Bld) 57.6 % Normal 38.1-75.5 [facility] Comment on above: Performed By: #### 2 1-2 #### [facility] [place] [facility] [address] [place] [address] Platelet mean volume (Bld) [Entitic vol] 13.0 fL High 6.2-12.1 [facility] Comment on above: Performed By: #### 2 1-2 #### [facility] [place] [facility] [address] [place] [address] Platelets (Bld) [#/Vol] 175 10*3/uL Normal 142-424 [facility] Comment on above: Performed By: #### 2 4321-2 #### [facility] [place] [facility] [address] [place] [address] RBC (Bld) [#/Vol] 3.66 10*6/uL Low 3.74-5.34 [facility] Comment on above: Performed By: #### 2 4321-2 #### [facility] [place] [facility] [address] [place] [address] WBC (Bld) [#/Vol] 8.2 10*3/uL Normal 4.6-10.2 [facility] Comment on above: Performed By: #### 2 4321-2 #### [facility] [address] [place] [address] PT Coag (PPP) [Time]on 04-23 INR Coag (PPP) [Relative time] 1.1 {INR} Normal <=5.0 [facility] Comment on above: Result Comment: The recommended therapeutic INR range for most cardiac indications is 2.0-3.0 For high intensity therapy (i.e. mechanical heart valves), the recommended range is 2.5-3.5 Performed By: #### 2 4321-2 #### [facility] [address] [place] [address] Prothrombin timeon PT Coag (PPP) [Time] 13.4 s Normal 11.9-14.7 [facility] Comment on above: Performed By: #### 2 4321-2 #### [facility] [address] [place] [address] Basic metabolic 2000 panelon 04-22-2022 Anion gap [Moles/Vol] 6 mmol/L Normal 6-18 [facility] Comment on above: Performed By: #### 1 988-5 #### [facility] ([facility] [address] [place] [address] Calcium [Mass/Vol] 8.3 mg/dL Low 8.9-10.3 [facility] Comment on above: Performed By: #### 1 988-5 #### [facility] [address] [place] [address] Chloride [Moles/Vol] 107 mmol/L Normal 98-107 [facility] Comment on above: Performed By: #### 1 988-5 #### [facility] [address] [place] [address] CO2 [Moles/Vol] 25 mmol/L Normal 22-32 [facility] Comment on above: Performed By: #### 1 988-5 #### [facility] [address] [place] [address] Creatinine [Mass/Vol] 1.06 mg/dL Normal 0.60-1.30 [facility] Comment on above: Performed By: #### 1 988-5 #### [facility] [address] [place] [address] GFR/1.73 sq M.predicted among non-blacks MDRD (S/P/Bld) [Vol rate/Area] 59 mL/min/{1.73_m2} Low >=60 [facility] Comment on above: Result Comment: Effe ctive January 08, 2022, calculation based on the?Chronic Kidney Disease Epidemiology Collaboration (CKD-EPI) equation refit?without adjustment for race. Performed By: #### 1 988-5 #### [facility] [address] [place] [address] Glucose [Mass/Vol] 104 mg/dL High 70-99 [facility] Comment on above: Performed By: #### 1 988-5 #### [facility] [address] [place] [address] Potassium [Moles/Vol] 4.7 mmol/L Normal 3.6-5.1 [facility] Comment on above: Performed By: #### 1 988-5 #### [facility] [address] [facility] [place] [address] Sodium [Moles/Vol] 138 mmol/L Normal 136-145 [facility] Comment on above: Performed By: #### 1 988-5 #### [facility] [address] [place] [address] Urea nitrogen [Mass/Vol] 24 mg/dL High 8-20 [facility] Comment on above: Performed By: #### 1 988-5 #### [facility] [address] [place] [address] Urea nitrogen/Creatinine [Mass ratio] 22.6 mg/mg High 12.0-20.0 [facility] Comment on above: Performed By: #### 1 988-5 #### [facility] [address] [place] [address] Anion gap [Moles/Vol] 6 mmol/L 6 - 18 [facility] Calcium [Mass/Vol] 8.3 mg/dL Low 8.9 - 10. 3 mg/dL [facility] Chloride [Moles/Vol] 107 mmol/L 98 - 10 7 mmol/L [facility] CO2 [Moles/Vol] 25 mmol/L 22 - 32 mmol/L [facility] Creatinine [Mass/Vol] 1.06 mg/dL 0.60 - 1.30 mg/dL [facility] GFR/1.73 sq M.predicted among non-blacks MDRD (S/P/Bld) [Vol rate/Area] 59 mL/min/{1.73_m2} Low - PINF [facility] Comment on above: Effective January 08, 2022, calculation based on the Chronic Kidney Disease Epidemiology Collaboration (CKD-EPI) equation refit without adjustment for race. Glucose [Mass/Vol] 104 mg/dL High 70 - 99 mg/dL [facility] Interpretation and review of laboratory results Abnormal [facility] Potassium [Moles/Vol] 4.7 mmol/L 3.6 - 5.1 mmol/L [facility] Sodium [Moles/Vol] 138 mmol/L 136 - 145 mmol/L [facility] Urea nitrogen [Mass/Vol] 24 mg/dL High 8 - 20 mg/dL [facility] Urea nitrogen/Creatinine [Mass ratio] 22.6 mg/mg High 12.0 - 20.0 [facility] Hemogram and platelets WO di fferential panel (Bld)on 04-22-2022 Erythrocyte distribution width (RBC) [Ratio] 16.4 % High 11.0-14.8 [facility] Comment on above: Performed By: #### 1 988-5 #### [facility] [address] [place] [address] Hematocrit (Bld) [Volume fraction] 35.8 % Normal 34.3-47.9 [facility] Comment on above: Performed By: #### 1 988-5 #### [facility] [address] [place] [address] Hemoglobin (Bld) [Mass/Vol] 10.9 g/dL Low 12.0-16.0 [facility] Comment on above: Performed By: #### 1 988-5 #### [facility] [address] [place] [address] 24755 MCH 28.2 pcg Normal 27.0-34.0 [facility] Comment on above: Performed By: #### 1 988-5 #### [facility] [address] [place] [address]80[address] MCHC (RBC) [Mass/Vol] 30.4 g/dL Low 30.8-35.3 [facility] Comment on above: Performed By: #### 1 988-5 #### [facility] [address] [place] [address]3483 MCV (RBC) [Entitic vol] 92.5 fL Normal 80.0-97.0 [facility] Comment on above: Performed By: #### 1 988-5 #### [facility] [address] [place] [address] Platelet mean volume (Bld) [Entitic vol] 12.4 fL High 6.2-12.1 [facility] Comment on above: Performed By: #### 1 988-5 #### [facility] ([facility] [address] [place] [address] Platelets (Bld) [#/Vol] 158 10*3/uL Normal 142-424 [facility] Comment on above: Performed By: #### 1 988-5 #### [facility] [address] [place] [address] 51292 RBC (Bld) [#/Vol] 3.87 10*6/uL Normal 3.74-5.34 [facility] Comment on above: Performed By: #### 1 988-5 #### [facility] [address] [place] [address] 10295 WBC (Bld) [#/Vol] 9.0 10*3/uL Normal 4.6-10.2 [facility] Comment on above: Performed By: #### 1 988-5 #### [facility] [address] [place] [address] 76495 Erythrocyte distribution width (RBC) [Ratio] 16.4 % High 11.0 - 14.8 % [facility] Hematocrit (Bld) [Volume fraction] 35.8 % 34.3 - 47.9 % [facility] Hemoglobin (Bld) [Mass/Vol] 10.9 g/dL Low 12.0 - 16.0 g/dL [facility] Interpretation and review of laboratory results Abnormal [facility] MCH (RBC) [Entitic mass] 28.2 pg [facility] MCHC (RBC) [Mass/Vol] 30.4 g/dL Low 30.8 - 35.3 g/dL [facility] MCV (RBC) [Entitic vol] 92.5 fL [facility] Platelet mean volume (Bld) [Entitic vol] 12.4 fL High [facility] th Platelets (Bld) [#/Vol] 158 10*3/uL [facility] RBC (Bld) [#/Vol] 3.87 10*6/uL [facility] WBC (Bld) [#/Vol] 9.0 10*3/uL [facility] PT Coag (PPP) [Time]on 04-22 INR Coag (PPP) [Relative time] 0.9 {INR} Normal <=5.0 [facility] Comment on above: Result Comment: The recommended therapeutic INR range for most cardiac indications is 2.0-3.0 For high intensity therapy (i.e. mechanical heart valves), the recommended range is 2.5-3.5 Performed By: #### 1 988-5 #### [facility] [address] [place] [address] 35167 INR Coag (PPP) [Relative time] 0.9 {INR} NINF - 5.0 [facility] Comment on above: The recommended ther apeutic INR range for most cardiac indications is 2.0-3.0 For high intensity therapy (i.e. mechanical heart valves), the recommended range is 2.5-3.5 Interpretation and review of laboratory results Normal [facility] PT Coag (Bld) [Time] 12.6 s [facility] Prothrombin timeon 3 PT Coag (PPP) [Time] 12.6 s Normal 11.9-14.7 [facility] Comment on above: Performed By: #### 1 988-5 #### [facility] [address] [place] [address]871 SARS-CoV-2 (COVID-19) RNA NA A+probe Ql (Resp)on 04-22-2022 Interpretation and review of laboratory results Normal [facility] SARS-CoV-2 (COVID-19) RdRp gene REBECCA+probe Ql (Resp) Not detected Not Detected [facility] SARS-CoV-2 RNA Resp Ql REBECCA+p robeon 04-22-2022 SARS-CoV-2 (COVID-19) RNA REBECCA+probe Ql (Resp) Not detected Normal Not Detected [facility] Comment on above: Performed By: #### 5 75-1 #### [facility] LAB [address] [place] [address] Basic metabolic 2000 panelon 04-21-2022 Anion gap [Moles/Vol] 9 mmol/L Normal 6-18 [facility] Comment on above: Performed By: #### 1 988-5 #### [facility] [address] [facility] [place] [place] [address] Calcium [Mass/Vol] 8.2 mg/dL Low 8.9-10.3 [facility] Comment on above: Performed By: #### 1 988-5 #### [facility] [address] [facility] [place] [place] [address] Chloride [Moles/Vol] 108 mmol/L High 98-107 [facility] Comment on above: Performed By: #### 1 988-5 #### [facility] [address] [facility] [place] [place] [address] CO2 [Moles/Vol] 22 mmol/L Normal 22-32 [facility] Comment on above: Performed By: #### 1 988-5 #### [facility] [address] [place] [address] Creatinine [Mass/Vol] 1.19 mg/dL Normal 0.60-1.30 [facility] Comment on above: Performed By: #### 1 988-5 #### [facility] [address] [place] [address] GFR/1.73 sq M.predicted among non-blacks MDRD (S/P/Bld) [Vol rate/Area] 51 mL/min/{1.73_m2} Low >=60 [facility] Comment on above: Result Comment: Effe ctive January 08, 2022, calculation based on the?Chronic Kidney Disease Epidemiology Collaboration (CKD-EPI) equation refit?without adjustment for race. Performed By: #### 1 988-5 #### [facility] [address] [place] [address] Glucose [Mass/Vol] 135 mg/dL High 70-99 [facility] Comment on above: Performed By: #### 1 988-5 #### [facility] [address] [place] [address]78 Potassium [Moles/Vol] 4.6 mmol/L Normal 3.6-5.1 [facility] Comment on above: Performed By: #### 1 988-5 #### [facility] [address] [place] [address] 82771 Sodium [Moles/Vol] 139 mmol/L Normal 136-145 [facility] Comment on above: Performed By: #### 1 988-5 #### [facility] [address] [place] [address] Urea nitrogen [Mass/Vol] 19 mg/dL Normal 8-20 [facility] Comment on above: Performed By: #### 1 988-5 #### [facility] [address] [place] [address] 89536 Urea nitrogen/Creatinine [Mass ratio] 16.0 mg/mg Normal 12.0-20.0 [facility] Comment on above: Performed By: #### 1 988-5 #### [facility] [address] [place] [address] 14332 Anion gap [Moles/Vol] 9 mmol/L 6 - 18 [facility] Calcium [Mass/Vol] 8.2 mg/dL Low 8.9 - 10. 3 mg/dL [facility] Chloride [Moles/Vol] 108 mmol/L High 98 - 10 7 mmol/L [facility] CO2 [Moles/Vol] 22 mmol/L 22 - 32 mmol/L [facility] Creatinine [Mass/Vol] 1.19 mg/dL 0.60 - 1.30 mg/dL [facility] GFR/1.73 sq M.predicted among non-blacks MDRD (S/P/Bld) [Vol rate/Area] 51 mL/min/{1.73_m2} Low - PINF [facility] Comment on above: Effective January 08, 2022, calculation based on the Chronic Kidney Disease Epidemiology Collaboration (CKD-EPI) equation refit without adjustment for race. Glucose [Mass/Vol] 135 mg/dL High 70 - 99 mg/dL [facility] Interpretation and review of laboratory results Abnormal [facility] Potassium [Moles/Vol] 4.6 mmol/L 3.6 - 5.1 mmol/L [facility] Sodium [Moles/Vol] 139 mmol/L 136 - 145 mmol/L [facility] Urea nitrogen [Mass/Vol] 19 mg/dL 8 - 20 mg/dL [facility] Urea nitrogen/Creatinine [Mass ratio] 16.0 mg/mg 12.0 - 20.0 [facility] Hemogram and platelets WO di fferential panel (Bld)on 04-21-2022 Erythrocyte distribution width (RBC) [Ratio] 15.9 % High 11.0-14.8 [facility] Comment on above: Performed By: #### 1 988-5 #### [facility] [address] [place] [address] 02898 Hematocrit (Bld) [Volume fraction] 37.0 % Normal 34.3-47.9 [facility] Comment on above: Performed By: #### 1 988-5 #### [facility] [address] [place] [address] Hemoglobin (Bld) [Mass/Vol] 11.6 g/dL Low 12.0-16.0 [facility] Comment on above: Performed By: #### 1 988-5 #### [facility] [address] [place] [address] 47471 MCH 28.2 pcg Normal 27.0-34.0 [facility] Comment on above: Performed By: #### 1 988-5 #### [facility] [address] [place] [address] MCHC (RBC) [Mass/Vol] 31.4 g/dL Normal 30.8-35.3 [facility] Comment on above: Performed By: #### 1 988-5 #### [facility] [address] [place] [address] 76677 MCV (RBC) [Entitic vol] 90.0 fL Normal 80.0-97.0 [facility] Comment on above: Performed By: #### 1 988-5 #### [facility] [address] [place] [address] 36581 Platelet mean volume (Bld) [Entitic vol] 12.3 fL High 6.2-12.1 [facility] Comment on above: Performed By: #### 1 988-5 #### [facility] [address] [place] [address] 41691 Platelets (Bld) [#/Vol] 220 10*3/uL Normal 142-424 [facility] Comment on above: Performed By: #### 1 988-5 #### [facility] [address] [place] [address] 27451 RBC (Bld) [#/Vol] 4.11 10*6/uL Normal 3.74-5.34 [facility] Comment on above: Performed By: #### 1 988-5 #### [facility] [address] [place] [address] 20317 WBC (Bld) [#/Vol] 13.5 10*3/uL High 4.6-10.2 [facility] Comment on above: Performed By: #### 1 988-5 #### [facility] [address] [place] [address] 10702 Erythrocyte distribution width (RBC) [Ratio] 15.9 % High 11.0 - 14.8 % [facility] Hematocrit (Bld) [Volume fraction] 37.0 % 34.3 - 47.9 % [facility] Hemoglobin (Bld) [Mass/Vol] 11.6 g/dL Low 12.0 - 16.0 g/dL [facility] Interpretation and review of laboratory results Abnormal [facility] MCH (RBC) [Entitic mass] 28.2 pg [facility] MCHC (RBC) [Mass/Vol] 31.4 g/dL 30.8 - 35.3 g/dL [facility] MCV (RBC) [Entitic vol] 90.0 fL [facility] Platelet mean volume (Bld) [Entitic vol] 12.3 fL High [facility] th Platelets (Bld) [#/Vol] 220 10*3/uL [facility] RBC (Bld) [#/Vol] 4.11 10*6/uL [facility] WBC (Bld) [#/Vol] 13.5 10*3/uL High [facility] Pathology studyOrdered By: Valerie Segura on 04-21-2022 Citation Rick (Reference lab test) p9yxpPLvFLNmcJRhKXYpU TvywxKfTCBqoHBkV0Rbkt kdFKrxSP6hPW3scChcxIP noZYmJVLvNxZrj6yzn829 jBCkf5xnXJQBgulhsEu8p 1ehLEVRHLyjPCFZDLp9nI tsR33oi8I3UotdL1uoUSF wBEhbmaInzkC3TPOlkMWz DNp9GUXpyYSjcoCxIgIgT WBzmFSqdTC9EFXcIF1soo zuZOhiWUzsTJBkkxZ1ZKL okWTpC5CeVSFwMC2toicp FVE2GYhmRXVxAUG0LhYmP WOzb0Hiral9LxSqkBJsMQ xwbGFpblxpXGYxXGZzMTh cX4NwGOSdSSM4KONkzoyc RTgpP71lnM8mXX19EIvcv gNiOPZze9HdHAUeFVMzCU jcJXYyyaRvKKrfnV8on8k 3SRusHk8oMBDoylzaQGA5 DwZvOK89EkmtnHLaJVSCc mUsIENvbHVtYnVzLCBPaG zeAXEjAsE7IeQIeWFfp2M nr1NqUjRiqLYfbH4gkIqv zoN2WBPcaLKeWh4xzJXdL lxwYXJ9 [employer] Work Phone: Microscopic description Rick (Endomyocardium) r1tcpNMoDJQlnBNXQBXfM ETxIU3tcJhohRe9nKboOA JuzeR1tOLzJOlbo7vnXAK 8g9fqqzWEXcdzCINeYX8u ATabVYWvXI5gApMkBERtT mYyXHBhcGVydzEyMjQwXH KmfKYuuEN0HMIjSA7grkp nVTnmBRrpOTZgqiH2GLHv bJWwQ6KbFQKmEZ2loopwJ DS3TWSAFjvxNa4vgAVhvW ANCntcZjFcZmNoYXJzZXQ oFLRqdLgxENKoTDl5iW9B w5xuXoyyF3ktacMqiLAmE f1fbEXYCQgeLJRCUDp3tW 5VKUUjI2AfPU7Gt7nxZKC doUQsNMC3IIghw2snSGfw HHI1GVJsDMAoHHCuLU2RS eVyNVDsKeG9RzP8FrF1JQ o1RPLZLVAaWCo8BnmeABn 5MTo3QLqwxqblLFa1FCQy MJtxnBGnAY1zyWcfLmqqi Uzed7IfeFGhNVZrUWxhdX QgNTEwMDIgXFxkYiBPVlI sEhReQPo3AAlfTGUjKMu6 WImxL0PYVVCtLQG6HrAzG XNfZjC6BBr4HQIVFl1pJe G8DkSuLGS9OsD6UCHoUFK cXHQgMiBcXHNzIDMgXFxm fTQsRO1vgMpcCNCpHV2IG HBsYWluXGYxXGZzMjAgQS 7yD59oVOjqFBUnyHmiLmZ lBEAibSRwyEDkkYYei3Y8 gDPmRIg8eSOms6T4nJeoJ GluZmlsdHJhdGVzOlxwYX IgDQpccGFyZCANClxwbGF pblxmMVxmczIwXHBsYWlu LSn4kaPxGZEfLbQvHEJsS 30tl5NOd5UjHZ4GSOt9qb IgvdzbbB8uFDUzllSnTMq cZjFcZnMyMCBSZWNlaXZl HNMpocZqs1KwBFsklzAwL NHljWPtHLvpcFeomCP4hP BqqFXoNW7zPODjTFKyZWP 7uFXod2W4DBLlnpv6QCYj qXoiyxTmjE1dgP3iqMPmU yBpbmZpbHRyYXRlcywgbG VmdCBrbmVlIiBpcyBhIDM vN06jELicvwGeFUXtMJ4e FHN3i5j4NOBeqc9fckV8A VXoQuBoV7VzbThrNFnfvs 33laK0wUHmfJEnBZADsNY ms6HzH0wpEU3keNTsrxOu vhBnDY73GYAgdjCmtNSul CXfnFG0XIPqjT7oMxwmL3 sgQTEuXHBhciANClxwYXI xJQghx3AnQYzpoQcvEQVq BtPuWQxdrsj2PM1JRLPjK FxlcGljWHNhMCANClxlcG raKiCdjNLfQdC3GXBpwTJ xIWM8SK5jgJusADOcB5Wv H0UzjdV5BREeyzVLEovvP pcfmiXxTV6EnD== [employer] Work Phone: Pathology report final diagnosis Narrative b6mngQWcEXMfvHXqCNQqK WgjoxAfBPLepQMmM9Fqrv ljMDkeIF6eTG0fxMoxaCG ljLXxEICiOqIjy3hqg244 kJVqp5vvEGAXpaqliJz8f UovB80sn4Y0JzxiT2lvJP QwXGdyZWVuMFxibHVlMDt 9XHBhcGVydzEyMjQwXHBh eRWekIH5RSGlRF1xmnuvS YaoGZobOZDxxfN8IWQwqM KkM3WjLOFqMP9mimzpKJE 2OQwgVZLcLHE7HyWlRBDt e2Bgtgh7PbLriMq7u5qzC RFpQSWlhFlel6oaEHD7XR LxsUHaH1xxkI5jYUBaVN8 hnjuzt5adCCvcTDuyOAHz xSU7neT3YNOeeHLkX9Gum F4yBTSsGUFnhqRwnAirMt E5OSpnfMXmeikzCuWkN24 ipKB7kPBtgYSoQCzzJwMt Y6aaTTTlaaytaIRzJMZxW KTVlSuyII1joqYxYMWiNt bwNWsgFdirgA4ccHzgkr4 ccGFyICAgLSBOZWdhdGl2 NXEzy9Lgp8bswnbegRTfs xUvcQWwkBYjz3K3jGTqYB x4eNHvh3B8wQkdWMlfImx lcV3jdIwlkn4ooHCxdL== [employer] Phone: [employer] Phone: Bacteria Spec Anaerobe Culto n 04-20-2022 Bacteria identified Anaer cx Nom (Unsp spec) Culture, Anaerobic Status = F No anaerobes grown after 4 days. Normal [facility] Comment on above: Performed By: #### 3 4556-1 #### [facility] [address] [place] [address] Performed By: #### 5 75-1 #### [facility] [address] [place] [address] Bacteria identified Anaer cx Nom (Unsp spec) Culture, Anaerobic Status = F No anaerobes grown after 4 days. Normal [facility] Comment on above: Performed By: #### 3 4556-1 #### [facility] [address] [place] [address] Bacteria Spec BFld Culton Bacteria identified Sterile [...] to a previously preliminary verified report. Normal [facility] Comment on above: Performed By: #### 6 36-1 #### [facility] [address] [place] [address] Bacteria Tiss Culton 023 Bacteria identified Cx [...] to a previously preliminary verified report. Normal [facility] Comment on above: Performed By: #### 3 4556-1 #### [facility] [address] [place] [address] Performed By: #### 5 75-1 #### [facility] [address] [place] [address] Cell count panel (Body fld)o n 04-20-2022 Fluid Eosinophils 4.0 % Normal [facility] Comment on above: Performed By: #### 1 988-5 #### [facility] [address] [place] [address] Fluid Lining Cells 1.0 % Normal [facility] Comment on above: Performed By: #### 1 988-5 #### [facility] ([facility] [address] [place] [address] Fluid Lymphocytes 46.0 % Normal [facility] Comment on above: Performed By: #### 1 988-5 #### [facility] [address] [place] [address] Fluid Monocytes/Macrophages 24.0 % Normal [facility] Comment on above: Performed By: #### 1 988-5 #### [facility] [address] [facility] [place] [address] Fluid Neutrophils 25.0 % Normal [facility] Comment on above: Performed By: #### 1 988-5 #### [facility] ([facility] [address] [facility] [place] [address] Clarity (Body fld) Hazy [facility] Health Color (Body fld) [place] flo.do RBC Auto (Body fld) [#/Vol] 56962 /mm3 [facility] Comment on above: The reference range and other method performance specifications have not been established for this fluid specimen. The test result should be integrated into the clinical context for interpretation. Specimen source Nom (Body fld) Synovial flo.do WBC (Body fld) [#/Vol] 111 /mm3 [facility] Comment on above: The reference range and other method performance specifications have not been established for this fluid specimen. The test result should be integrated into the clinical context for interpretation. flo.do Differential panel (Body fld )Ordered By: Valarie Delacruz on 04-20-2022 Eosinophils/100 WBC Manual cnt (Body fld) 4.0 % [facility] Fluid Lining Cells 1.0 % [facility] Lymphocytes/100 WBC Manual cnt (Body fld) 46.0 % [facility] Monocytes+Macrophages /100 WBC (Body fld) 24.0 % [facility] [facility] th Neutrophils/100 WBC (Body fld) 25.0 % [facility] Fungus Skin Culton 3 Fungus identified Cx Nom (Skin) Culture, Fungus Status = F No growth at 4 weeks Normal [facility] Comment on above: Performed By: #### 5 75-1 #### [facility] ([facility] [address] [place] [address] Performed By: #### 3 4556-1 #### [facility] [address] [place] [address] Fungus identified Cx Nom (Skin) Culture, Fungus Status = F No growth at 4 weeks Normal [facility] Comment on above: Performed By: #### 5 75-1 #### [facility] ([facility] [address] [place] [address] Glucose Auto test strip (Bld ) [Mass/Vol]on 04-20-2022 Glucose [Mass/Vol] 135 mg/dL High 70-99 [facility] Comment on above: Performed By: #### 1 988-5 #### [facility] [address] [place] [address] Glucose [Mass/Vol] 135 mg/dL High 70 - 99 mg/dL [facility] Interpretation and review of laboratory results Abnormal [facility] Mycobacterium Spec Culton Mycobacterium sp identified Org specific cx Nom (Unsp spec) Culture AFB Status = F No growth at 8 weeks AFB Stain Status = F No acid fast bacilli seen Normal [facility] Comment on above: Performed By: #### 5 43-9 #### [facility] ([facility] [address] [place] [address] Performed By: #### 3 4556-1 #### [facility] [address] [place] [address] Performed By: #### 5 75-1 #### [facility] ([facility] [address] [place] [address] Mycobacterium sp identified Org specific cx Nom (Unsp spec) Culture AFB Status = F No growth at 8 weeks AFB Stain Status = F No acid fast bacilli seen Normal [facility] Comment on above: Performed By: #### 5 75-1 #### [facility] [place] ([facility] [address] [place] [address] No Panel InformationOrdered By: Hilary Albarran on 04-20-2022 flo.do PT Coag (PPP) [Time]on 04-20 aPTT Coag (Bld) [Time] 22.0 s Low 23.3-35.3 [facility] Comment on above: Performed By: #### 1 988-5 #### [facility] [place] [facility] [address] [place] [address] PT Coag (PPP) [Time]Ordered By: Hilary Albarran on 04-20-2022 INR Coag (PPP) [Relative time] 1.0 {INR} NINF - 5.0 [facility] Comment on above: The recommended ther apeutic INR range for most cardiac indications is 2.0-3.0 For high intensity therapy (i.e. mechanical heart valves), the recommended range is 2.5-3.5 Interpretation and review of laboratory results Normal [facility] [place] PT Coag (Bld) [Time] 13.4 s [facility] Pathology studyon 04-20-2022 Pathology study Soft [...] performed at [facility], [address] [place], [place] [id number]. Microscopic examination was performed. Normal [facility] Comment on above: Performed By: #### 1 1526-1 #### [facility] [address] [place] [address] [facility] [address] [place] [address] XR KNEE 1-2 VIEWS LEFTon XR KNEE [...] Self Edit Transcribed Date: 04/20/2022 16:06 Normal [facility] XR Knee 1-2 Views Lefton FINDINGS/IMPRESSION: Status [...] By: Self Edit Transcribed Date: 04/20/2022 16:06 flo.do Radiology Study observation (narrative) flo.do XR Knee 1-2 Views LeftOrdere d By: Heriberto Saldana on 04-20-2022 flo.do Work Phone: aPTT Coag (Bld) [Time]on aPTT Coag (PPP) [Time] 22.0 s Low flo[facility]do Interpretation and review of laboratory results Abnormal flo.do Covid-19 PCR (CVDTB)on 04-02 SARS-CoV-2 (COVID-19) RNA REBECCA+probe Ql (Unsp spec) Not detected Normal NOT DETECTED [facility] Comment on above: Result Comment: When diagnostic [...] for this test is supported by the [place] of Health and Human Service's declaration that [...] be used). Performed By: #### C #### [facility] [address] [address] [address] Jeffrey Thomas Bacteria Spec Anaerobe Culto n 04-05-2022 Bacteria identified Anaer cx Nom (Unsp spec) Culture, Anaerobic Status = F No anaerobes grown after 4 days. Normal [facility] Comment on above: Performed By: #### 5 75-1 #### [facility] ([facility]) [facility] [address] [place] [address] Bacteria Spec BFld Culton Bacteria identified Sterile [...] to a previously preliminary verified report. Normal [facility] Comment on above: Performed By: #### 5 75-1 #### [facility] ([facility] [address] [place] [address] Blood type and Indirect anti body screen panel (Bld)on 04-05-2022 ABO group Nom (Bld) A Normal [facility] Comment on above: Performed By: #### 3 4532-2 #### [facility] [address] [place] [address] Rh Type Positive Normal [facility] Comment on above: Performed By: #### 3 4532-2 #### [facility] [address] [place] [address] CRP [Mass/Vol]on 04-05-2022 Anion gap [Moles/Vol] 9 mmol/L Normal 6-18 [facility] Comment on above: Performed By: #### 1 988-5 #### [facility] [address] [facility] [place] [address] Calcium [Mass/Vol] 9.4 mg/dL Normal 8.9-10.3 [facility] Comment on above: Performed By: #### 1 988-5 #### [facility] [address] [place] [address] Chloride [Moles/Vol] 105 mmol/L Normal 98-107 [facility] Comment on above: Performed By: #### 1 988-5 #### [facility] [address] [place] [address] CO2 [Moles/Vol] 24 mmol/L Normal 22-32 [facility] Comment on above: Performed By: #### 1 988-5 #### [facility] [address] [place] [address] Creatinine [Mass/Vol] 1.07 mg/dL Normal 0.60-1.30 [facility] Comment on above: Performed By: #### 1 988-5 #### [facility] [address] [place] [address] GFR/1.73 sq M.predicted among non-blacks MDRD (S/P/Bld) [Vol rate/Area] 58 mL/min/{1.73_m2} Low >=60 [facility] Comment on above: Result Comment: Effe ctive January 08, 2022, calculation based on the?Chronic Kidney Disease Epidemiology Collaboration (CKD-EPI) equation refit?without adjustment for race. Performed By: #### 1 988-5 #### [facility] [address] [place] [address] Glucose [Mass/Vol] 97 mg/dL Normal 70-99 [facility] Comment on above: Performed By: #### 1 988-5 #### [facility] [address] [place] [address] Potassium [Moles/Vol] 4.9 mmol/L Normal 3.6-5.1 [facility] Comment on above: Performed By: #### 1 988-5 #### [facility] [address] [place] [address] Sodium [Moles/Vol] 138 mmol/L Normal 136-145 [facility] Comment on above: Performed By: #### 1 988-5 #### [facility] [address] [place] [address] Urea nitrogen [Mass/Vol] 22 mg/dL High 8-20 [facility] Comment on above: Performed By: #### 1 988-5 #### [facility] [address] [place] [address] Urea nitrogen/Creatinine [Mass ratio] 20.6 mg/mg High 12.0-20.0 [facility] Comment on above: Performed By: #### 1 988-5 #### [facility] [address] [place] [address] Cell count panel (Body fld)o n 04-05-2022 Fluid Eosinophils 3.0 % Normal [facility] Comment on above: Result Comment: Boy ected result: Previously reported as 6.0 % on 04/05/2022 at 1416 EST. Performed By: #### 3 4556-1 #### [facility] [address] [place] [address] Fluid Lymphocytes 34.0 % Normal [facility] Comment on above: Result Comment: Boy ected result: Previously reported as 43.0 % on 04/05/2022 at 1416 EST. Performed By: #### 3 4556-1 #### [facility] [address] [place] [address] Fluid Monocytes/Macrophages 23.0 % Normal [facility] Comment on above: Result Comment: Boy ected result: Previously reported as 9.0 % on 04/05/2022 at 1416 EST. Performed By: #### 3 4556-1 #### [facility] [address] [place] [address] Fluid Neutrophils 40.0 % Normal [facility] Comment on above: Result Comment: Boy ected result: Previously reported as 39.0 % on 04/05/2022 at 1416 EST. Performed By: #### 3 4556-1 #### [facility] [address] [place] [address] Fluid Other Cells Normal [facility] Comment on above: Result Comment: Lini ng cells Corrected result: Previously reported as 3.0 % on 04/05/2022 at 1416 EST. Performed By: #### 3 4556-1 #### [facility] [address] [place] [address] Fungus Skin Culton Fungus identified Cx Nom (Skin) Culture, Fungus Status = F No growth at 4 weeks Normal [facility] Comment on above: Performed By: #### 3 4556-1 #### [facility] [address] [place] [address] Hemogram and platelets WO di fferential panel (Bld)on 04-05-2022 Sed Rate 41 mm/hr High 0-20 [facility] Comment on above: Performed By: #### 5 75-1 #### [facility] [address] [place] [address] Mycobacterium Spec Culton Mycobacterium sp identified Org specific cx Nom (Unsp spec) Culture AFB Status = F No growth at 8 weeks AFB Stain Status = F No acid fast bacilli seen Normal [facility] Comment on above: Performed By: #### 1 988-5 #### [facility] [address] [facility] [place] [address] Basic metabolic 2000 panelon 01-05-2022 Anion gap [Moles/Vol] 12 mmol/L [facility] [place] Calcium [Mass/Vol] 9.1 mg/dL 8.9 - 10. 3 mg/dL [facility] Chloride [Moles/Vol] 103 mmol/L 98 - 10 7 mmol/L [facility] CO2 [Moles/Vol] 19 mmol/L Low 22 - 32 mmol/L [facility] Creatinine [Mass/Vol] 1.28 mg/dL 0.60 - 1.30 mg/dL flo.do GFR/1.73 sq M.predicted MDRD (S/P/Bld) [Vol rate/Area] 44 mL/min/{1.73_m2} Low >=60 mL/min/1.73m 2 flo.do Glucose [Mass/Vol] 99 mg/dL 70 - 99 mg/dL flo[facility]do Interpretation and review of laboratory results Abnormal flo.do Potassium [Moles/Vol] 5.1 mmol/L 3.6 - 5.1 mmol/L flo[facility]do Sodium [Moles/Vol] 134 mmol/L Low 136 - 145 mmol/L flo[facility]do Urea nitrogen [Mass/Vol] 34 mg/dL High 8 - 20 mg/dL [facility]do Urea nitrogen/Creatinine [Mass ratio] 26.6 mg/mg High [employer] Hemogram and platelets WO di fferential panel (Bld)on 01-05-2022 Basophils (Bld) [#/Vol] 0.10 10*3/uL flo.do Basophils/100 WBC (Bld) 0.8 % 0.0 - 2.0 % flo[facility]do Eosinophils (Bld) [#/Vol] 0.29 10*3/uL flo[facility]do Eosinophils/100 WBC (Bld) 2.3 % 0.0 - 7.0 % flo[facility]do Erythrocyte distribution width (RBC) [Ratio] 15.8 % High 11.0 - 14.8 % flo.do Hematocrit (Bld) [Volume fraction] 35.6 % 34.3 [...] 8.0 % 0.0 - 12.0 % [facility] Segmented neutrophils (Bld) [#/Vol] 9.02 10*3/uL High [facility] Segmented neutrophils/100 WBC (Bld) 71.0 % 38.1 - 75.5 % [facility] PT Coag (PPP) [Time]on 01-05 INR Coag (PPP) [Relative time] 1.0 {INR} <=5.0 [facility] Comment on above: The recommended ther apeutic INR range for most cardiac indications is 2.0-3.0 For high intensity therapy (i.e. mechanical heart valves), the recommended range is 2.5-3.5 Interpretation and review of laboratory results Normal [facility] PT Coag (Bld) [Time] 13.0 s [facility] [employer] [place] Basic metabolic 2000 panelon 01-04-2022 Anion gap [Moles/Vol] 9 mmol/L [facility] [place] Calcium [Mass/Vol] 8.9 mg/dL 8.9 - 10. 3 mg/dL [facility] Chloride [Moles/Vol] 103 mmol/L 98 - 10 7 mmol/L [facility] CO2 [Moles/Vol] 21 mmol/L Low 22 - 32 mmol/L [facility] Creatinine [Mass/Vol] 1.00 mg/dL 0.60 - 1.30 mg/dL [facility] GFR/1.73 sq M.predicted MDRD (S/P/Bld) [Vol rate/Area] 59 mL/min/{1.73_m2} Low >=60 mL/min/1.73m 2 [facility] Glucose [Mass/Vol] 129 mg/dL High 70 - 99 mg/dL [facility] Interpretation and review of laboratory results Abnormal [facility] Potassium [Moles/Vol] 5.0 mmol/L 3.6 - 5.1 mmol/L [facility] Sodium [Moles/Vol] 133 mmol/L Low 136 - 145 mmol/L [facility] Urea nitrogen [Mass/Vol] 26 mg/dL High 8 - 20 mg/dL [facility] Urea nitrogen/Creatinine [Mass ratio] 26.0 mg/mg High [facility] Hemogram and platelets WO di fferential panel [...] Health WBC (Bld) [#/Vol] 14.6 10*3/uL High [facility] [place] Manual Differential panel (B ld)on 01-04-2022 Interpretation and review of laboratory results Abnormal [facility] Lymphocytes (Bld) [#/Vol] 2.77 10*3/uL [facility] Lymphocytes/100 WBC (Bld) 19.0 % 17.9 - 49.6 % [facility] Monocytes (Bld) [#/Vol] 1.31 10*3/uL High [facility] Monocytes/100 WBC (Bld) 9.0 % 0.0 - 12.0 % [facility] Segmented neutrophils (Bld) [#/Vol] 10.51 10*3/uL High [facility] Segmented neutrophils/100 WBC (Bld) 72.0 % 38.1 - 75.5 % [facility] [place] PT Coag (PPP) [Time]Ordered By: Hilary Albarran on 01-04-2022 INR Coag (PPP) [Relative time] 0.9 {INR} <=5.0 [facility] Comment on above: The recommended ther apeutic INR range for most cardiac indications is 2.0-3.0 For high intensity therapy (i.e. mechanical heart valves), the recommended range is 2.5-3.5 Interpretation and review of laboratory results Normal [facility] PT Coag (Bld) [Time] 12.6 s [facility] flo.do Glucose Auto test strip (Bld ) [Mass/Vol]on 01-03-2022 Glucose [Mass/Vol] 144 mg/dL High 70 - 99 mg/dL [facility] Interpretation and review of laboratory results Abnormal [facility] [place] Covid-19 PCR (CVDTBH)on SARS-CoV-2 (COVID-19) RNA REBECCA+probe Ql (Unsp spec) Not detected Normal NOT DETECTED [facility] Comment on above: Result Comment: When diagnostic [...] for this test is supported by the [place] of Health and Human Service's declaration that [...] used). Performed By: #### C MP #### [facility] [address] [place] [address] Dr. Jeffrey Thomas CBC AUTO DIFFon 12-14-2021 BASO # 0.1 103/ul Normal 0.0-0.1 [facility] Comment on above: Performed By: #### T 4LC #### [facility] [address] [place] [address] Dr. Jeffrey Thomas Basophils/100 WBC (Bld) 1.2 % Normal 0.2-2.0 [facility] Comment on above: Performed By: #### T 4LC #### [facility] [address] [place] [address] Dr. Jeffrey Thomas EO # 0.2 103/ul Normal 0.0-0.7 [facility] Comment on above: Performed By: #### T 4LC #### [facility] [address] [place] [address] Dr. Jeffrey Thomas Eosinophils/100 WBC (Bld) 3.2 % Normal 0.9-7.0 [facility] Comment on above: Performed By: #### T 4LC #### [facility] [address] [place] [address] Dr. Jeffrey Thomas Erythrocyte distribution width (RBC) [Ratio] 15.9 % Critically high 11.0-15.0 [facility] Comment on above: Performed By: #### T 4LC #### [facility] [address] [place] [address] Dr. Jeffrey Thomas Hematocrit (Bld) [Volume fraction] 35.1 % Critically low 36.0-48.0 [facility] Comment on above: Performed By: #### T 4LC #### [facility] [address] [place] [address] Dr. Jeffrey Thomas Hemoglobin (Bld) [Mass/Vol] 10.8 g/dL Critically low 12.0-16.0 [facility] Comment on above: Performed By: #### 4LC #### [facility] [address] [place] [address] Dr. Jeffrey Thomas IG # 0.03 10e3/ul Normal 0.00-0.03 [facility] Comment on above: Performed By: #### 4LC #### [facility] [address] [place] [address] Dr. Jeffrey Thomas IG % 0.4 % Normal 0.0-0.5 [facility] Comment on above: Performed By: #### 4LC #### [facility] [address] [place] [address] Dr. Jeffrey Thomas LYMPH # 2.1 103/ul Normal 1.2-3.8 [facility] Comment on above: Performed By: #### 4LC #### [facility] [address] [place] [address] Dr. Jeffrey Thomas Lymphocytes/100 WBC (Bld) 30.8 % Normal 20.5-60.0 [facility] Comment on above: Performed By: #### 4LC #### [facility] [address] [place] [address] Dr. Jeffrey Thomas MANUAL DIFF REQ NO Normal [facility] Comment on above: Performed By: #### T 4LC #### [facility] [address] [place] [address] Dr. Jeffrey Thomas MCH (RBC) [Entitic mass] 30.3 pg Normal 26.7-34.0 [facility] Comment on above: Performed By: #### T 4LC #### [facility] [address] [place] [address] Dr. Jeffrey Thomas MCHC (RBC) [Mass/Vol] 30.8 g/dL Normal 29.9-35.2 [facility] Comment on above: Performed By: #### T 4LC #### [facility] [address] [place] [address] Dr. Jeffrey Thomas MCV (RBC) [Entitic vol] 98.6 fL Normal 81.0-99.0 [facility] Comment on above: Performed By: #### 4LC #### [facility] [address] [place] [address] Dr. Jeffrey Thomas MONO # 0.5 103/ul Normal 0.3-0.8 [facility] Comment on above: Performed By: #### 4LC #### [facility] [address] [place] [address] Dr. Jeffrey Thomas Monocytes/100 WBC (Bld) 7.5 % Normal 1.7-12.0 [facility] Comment on above: Performed By: #### 4LC #### [facility] [address] [place] [address] Dr. Jeffrey Thomas NEUT # 3.9 103/ul Normal 1.4-6.5 [facility] Comment on above: Performed By: #### 4LC #### [facility] [address] [place] [address] Dr. Jeffrey Thomas Neutrophils/100 WBC (Bld) 56.9 % Normal 43.0-75.0 [facility] Comment on above: Performed By: #### 4LC #### [facility] [address] [place] [address] Dr. Jeffrey Thomas Platelet mean volume (Bld) [Entitic vol] 12.0 fL Normal 9.5-13.5 [facility] Comment on above: Performed By: #### 4LC #### [facility] [address] [place] [address] Dr. Jeffrey Thomas PLT 209 103/ul Normal 150-450 [facility] Comment on above: Performed By: #### 4LC #### [facility] [address] [place] [address] Dr. Jeffrey Thomas RBC 3.56 106/ul Critically low 4.20-5.40 [facility] Comment on above: Performed By: #### 4LC #### [facility] [address] [place] [address] Dr. Jeffrey Thomas WBC 6.8 103/ul Normal 4.0-11.0 [facility] Comment on above: Performed By: #### T 4LC #### [facility] [address] [place] [address] Dr. Jeffrey Thomas PROF 14(COMP METB)on 022 Albumin [Mass/Vol] 2.5 g/dL Critically low 3.4-5.0 [facility] Comment on above: Performed By: #### L ACT #### [facility] [address] [place] [address] Dr. Jeffrey Thomas Albumin/Globulin [Mass ratio] 1.0 {ratio} Normal [facility] Comment on above: Performed By: #### L ACT #### [facility] [address] [place] [address] Dr. Jeffrey Thomas ALP [Catalytic activity/Vol] 94 U/L Normal 46-116 [facility] Comment on above: Performed By: #### L ACT #### [facility] [address] [place] [address] Dr. Jeffrey Thomas ALT [Catalytic activity/Vol] 9 U/L Critically low 14-59 [facility] Comment on above: Performed By: #### L ACT #### [facility] [address] [place] [address] Dr. Jeffrey Thomas Anion gap [Moles/Vol] 11.7 mmol/L Normal [facility] Comment on above: Performed By: #### L ACT #### [facility] [address] [place] [address] Dr. Jeffrey Thomas AST [Catalytic activity/Vol] 6 U/L Critically low 15-37 [facility] Comment on above: Performed By: #### L ACT #### [facility] [address] [place] [address] Dr. Jeffrey Thomas Bilirubin [Mass/Vol] 0.1 mg/dL Critically low 0.2-1.0 [facility] Comment on above: Performed By: #### L ACT #### [facility] [address] [address] [address] Jeffrey Thomas Calcium [Mass/Vol] 8.2 mg/dL Critically low 8.5-10.1 [facility] Comment on above: Performed By: #### L ACT #### [facility] [address] [address] [address] Jeffrey Thomas Chloride [Moles/Vol] 111 mmol/L Critically high 98-107 [facility] Comment on above: Performed By: #### L ACT #### [facility] [address] [address] [address] Jeffrey Thomas CO2 [Moles/Vol] 22.5 mmol/L Normal 21.0-32.0 [facility] Comment on above: Performed By: #### L ACT #### [facility] [address] [place] [address] Dr. Jeffrey Thomas Creatinine [Mass/Vol] 0.87 mg/dL Normal 0.55-1.02 [facility] Comment on above: Performed By: #### L ACT #### [facility] [address] [place] [address] Dr. Jeffrey Thomas EGFR-AF LEBANESE >60 Normal >=60 [facility] Comment on above: Performed By: #### L ACT #### [facility] [address] [place] [address] Dr. Jeffrey Thomas EGFR-NON AF LEBANESE >60 Normal >=60 [facility] Comment on above: Performed By: #### L ACT #### [facility] [address] [address] [address] Jeffrey Thomas Globulin (S) [Mass/Vol] 2.6 g/dL Normal [facility] Comment on above: Performed By: #### L ACT #### [facility] [address] [place] [address] Dr. Jeffrey Thomas Glucose [Mass/Vol] 111 mg/dL Critically high 74-106 [facility] Comment on above: Performed By: #### L ACT #### [facility] [address] [address] [address] Jeffrey Thomas Potassium [Moles/Vol] 4.2 mmol/L Normal 3.5-5.1 [facility] Comment on above: Performed By: #### L ACT #### [facility] [address] [place] [address] Dr. Jeffrey Thomas Protein [Mass/Vol] 5.1 g/dL Critically low 6.4-8.2 [facility] Comment on above: Performed By: #### L ACT #### [facility] [address] [place] [address] Dr. Jeffrey Thomas Sodium [Moles/Vol] 141 mmol/L Normal 136-145 [facility] Comment on above: Performed By: #### L ACT #### [facility] [facility] [address] [place] [address] Dr. Jeffrey Thomas Urea nitrogen [Mass/Vol] 31.0 mg/dL Critically high 7.0-18.0 [facility] Comment on above: Performed By: #### L ACT #### [facility] [address] [place] [address] Dr. Jeffrey Thomas Urea nitrogen/Creatinine [Mass ratio] 35.6 mg/mg Normal [facility] Comment on above: Performed By: #### L ACT #### [facility] [address] [place] [address] Dr. Jeffrey Thomas CBC AUTO DIFFon 12-13-2021 BASO # 0.1 103/ul Normal 0.0-0.1 [facility] Comment on above: Performed By: #### L ACT #### [facility] [address] [place] [address] Dr. Jeffrey Thomas Basophils/100 WBC (Bld) 1.3 % Normal 0.2-2.0 [facility] Comment on above: Performed By: #### L ACT #### [facility] [address] [place] [address] Dr. Jeffrey Thomas EO # 0.3 103/ul Normal 0.0-0.7 [facility] Comment on above: Performed By: #### L ACT #### [facility] [address] [place] [address] Dr. Jeffrey Thomas Eosinophils/100 WBC (Bld) 3.8 % Normal 0.9-7.0 [facility] Comment on above: Performed By: #### L ACT #### [facility] [address] [place] [address] Dr. Jeffrey Thomas Erythrocyte distribution width (RBC) [Ratio] 15.7 % Critically high 11.0-15.0 [facility] Comment on above: Performed By: #### L ACT #### [facility] [address] [place] [address] Dr. Jeffrey Thomas Hematocrit (Bld) [Volume fraction] 35.7 % Critically low 36.0-48.0 [facility] Comment on above: Performed By: #### L ACT #### [facility] [address] [place] [address] Dr. Jeffrey Thomas Hemoglobin (Bld) [Mass/Vol] 11.5 g/dL Critically low 12.0-16.0 [facility] Comment on above: Performed By: #### L ACT #### [facility] [address] [place] [address] Dr. Jeffrey Thomas IG # 0.04 10e3/ul Critically high 0.00-0.03 [facility] Comment on above: Performed By: #### L ACT #### [facility] [address] [place] [address] Dr. Jeffrey Thomas IG % 0.6 % Critically high 0.0-0.5 [facility] Comment on above: Performed By: #### L ACT #### [facility] [address] [place] [address] Dr. Jeffrey Thomas LYMPH # 2.0 103/ul Normal 1.2-3.8 [facility] Comment on above: Performed By: #### L ACT #### [facility] [address] [place] [address] Dr. Jeffrey Thomas Lymphocytes/100 WBC (Bld) 28.8 % Normal 20.5-60.0 [facility] Comment on above: Performed By: #### L ACT #### [facility] [address] [place] [address] Dr. Jeffrey Thomas MANUAL DIFF REQ NO Normal [facility] Comment on above: Performed By: #### L ACT #### [facility] [address] [place] [address] Dr. Jeffrey Thomas MCH (RBC) [Entitic mass] 31.6 pg Normal 26.7-34.0 [facility] Comment on above: Performed By: #### L ACT #### [facility] [address] [place] [address] Dr. Jeffrey Thomas MCHC (RBC) [Mass/Vol] 32.2 g/dL Normal 29.9-35.2 [facility] Comment on above: Performed By: #### L ACT #### [facility] [address] [place] [address] Dr. Jeffrey Thomas MCV (RBC) [Entitic vol] 98.1 fL Normal 81.0-99.0 [facility] Comment on above: Performed By: #### L ACT #### [facility] [address] [place] [address] Dr. Jeffrey Thomas MONO # 0.6 103/ul Normal 0.3-0.8 [facility] Comment on above: Performed By: #### L ACT #### [facility] [address] [place] [address] Dr. Jeffrey Thomas Monocytes/100 WBC (Bld) 8.5 % Normal 1.7-12.0 [facility] Comment on above: Performed By: #### L ACT #### [facility] [address] [place] [address] Dr. Jeffrey Thomas NEUT # 3.9 103/ul Normal 1.4-6.5 [facility] Comment on above: Performed By: #### L ACT #### [facility] [address] [place] [address] Dr. Jeffrey Thomas Neutrophils/100 WBC (Bld) 57.0 % Normal 43.0-75.0 [facility] Comment on above: Performed By: #### L ACT #### [facility] [address] [place] [address] Dr. Jeffrey Thomas Platelet mean volume (Bld) [Entitic vol] 11.5 fL Normal 9.5-13.5 [facility] Comment on above: Performed By: #### L ACT #### [facility] [address] [place] [address] Dr. Jeffrey Thomas PLT 199 103/ul Normal 150-450 [facility] Comment on above: Performed By: #### L ACT #### [facility] [address] [address] [address] Jeffrey Thomas RBC 3.64 106/ul Critically low 4.20-5.40 [facility] Comment on above: Performed By: #### L ACT #### [facility] [address] [address] [address] Jeffrey Thomas WBC 6.9 103/ul Normal 4.0-11.0 [facility] Comment on above: Performed By: #### L ACT #### [facility] [address] [place] [address] Dr. Jeffrey Thomas POINT OF CARE GLUCOSEon 12-01 Glucose [Mass/Vol] 85 mg/dL Normal 74-106 [facility] Comment on above: Performed By: #### C MP #### [facility] [address] [place] [address] Dr. Jeffrey Thomas PROF 14(COMP METB)on 022 Albumin [Mass/Vol] 2.7 g/dL Critically low 3.4-5.0 [facility] Comment on above: Performed By: #### A MM #### [facility] [address] [place] [address] Dr. Jeffrey Thomas Albumin/Globulin [Mass ratio] 1.0 {ratio} Normal [facility] Comment on above: Performed By: #### A MM #### [facility] [address] [place] [address] Dr. Jeffrey Thomas ALP [Catalytic activity/Vol] 95 U/L Normal 46-116 [facility] Comment on above: Performed By: #### A MM #### [facility] [address] [place] [address] Dr. Jeffrey Thomas ALT [Catalytic activity/Vol] 11 U/L Critically low 14-59 [facility] Comment on above: Performed By: #### A MM #### [facility] [address] [address] [address] Jeffrey Thomas Anion gap [Moles/Vol] 10.8 mmol/L Normal [facility] Comment on above: Performed By: #### A MM #### [facility] [address] [address] [address] Jeffrey Thomas AST [Catalytic activity/Vol] 14 U/L Critically low 15-37 [facility] Comment on above: Performed By: #### A MM #### [facility] [address] [address] [address] Jeffrey Thomas Bilirubin [Mass/Vol] 0.2 mg/dL Normal 0.2-1.0 [facility] Comment on above: Performed By: #### A MM #### [facility] [address] [address] [address] Jeffrey Thomas Calcium [Mass/Vol] 8.3 mg/dL Critically low 8.5-10.1 [facility] Comment on above: Performed By: #### A MM #### [facility] [address] [address] [address] Jeffrey Thomas Chloride [Moles/Vol] 113 mmol/L Critically high 98-107 [facility] Comment on above: Performed By: #### A MM #### [facility] [address] [address] [address] Jeffrey Thomas CO2 [Moles/Vol] 22.1 mmol/L Normal 21.0-32.0 [facility] Comment on above: Performed By: #### A MM #### [facility] [address] [address] [address] Jeffrey Thomas Creatinine [Mass/Vol] 0.98 mg/dL Normal 0.55-1.02 [facility] Comment on above: Performed By: #### A MM #### [facility] [address] [address] [address] Jeffrey Thomas EGFR-AF LEBANESE >60 Normal >=60 [facility] Comment on above: Performed By: #### A MM #### [facility] [address] [address] [address] Jeffrey Thomas EGFR-NON AF LEBANESE 57 mL/min/1.73m2 Critically low >=60 [facility] Comment on above: Performed By: #### A MM #### [facility] [address] [address] [address] Jeffrey Thomas Globulin (S) [Mass/Vol] 2.6 g/dL Normal [facility] Comment on above: Performed By: #### A MM #### [facility] [address] [address] [address] Jeffrey Thomas Glucose [Mass/Vol] 102 mg/dL Normal 74-106 [facility] Comment on above: Performed By: #### A MM #### [facility] [address] [address] [address] Jeffrey Thomas Potassium [Moles/Vol] 3.9 mmol/L Normal 3.5-5.1 [facility] Comment on above: Performed By: #### A MM #### [facility] [address] [address] [address] Jeffrey Thomas Protein [Mass/Vol] 5.3 g/dL Critically low 6.4-8.2 [facility] Comment on above: Performed By: #### A MM #### [facility] [address] [address] [address] Jeffrey Thomas Sodium [Moles/Vol] 142 mmol/L Normal 136-145 [facility] Comment on above: Performed By: #### A MM #### [facility] [address] [address] [address] Jeffrey Thomas Urea nitrogen [Mass/Vol] 26.0 mg/dL Critically high 7.0-18.0 [facility] Comment on above: Performed By: #### A MM #### [facility] [address] [address] [address] Jeffrey Thomas Urea nitrogen/Creatinine [Mass ratio] 26.5 mg/mg Normal [facility] Comment on above: Performed By: #### A MM #### [facility] [address] [place] [address] Dr. Jeffrey Thomas T3, TOTAL (TRIIODOTHYRONINE) on 12-13-2021 T3, TOTAL 72 ng/dL Normal 71-180 [facility] Comment on above: Performed By: #### C MP #### [facility] [address] [place] [address] Dr. Jeffrey Thomas T4 LABCORPon 12-13-2021 T4 [Mass/Vol] 5.2 ug/dL Normal 4.5-12.0 [facility] Comment on above: Performed By: #### T 4LC #### [facility] [address] [place] [address] Dr. Jeffrey Thomas AMMONIAon 12-12-2021 Ammonia (P) [Moles/Vol] 10 umol/L Critically low 11-32 [facility] Comment on above: Performed By: #### A MM #### [facility] [address] [place] [address] Dr. Jeffrey Thomas CBC AUTO DIFFon 12-12-2021 BASO # 0.1 103/ul Normal 0.0-0.1 [facility] Comment on above: Performed By: #### T 4LC #### [facility] [address] [place] [address] Dr. Jeffrey Thomas Basophils/100 WBC (Bld) 1.4 % Normal 0.2-2.0 [facility] Comment on above: Performed By: #### T 4LC #### [facility] [address] [place] [address] Dr. Jeffrey Thomas EO # 0.2 103/ul Normal 0.0-0.7 [facility] Comment on above: Performed By: #### T 4LC #### [facility] [address] [place] [address] Dr. Jeffrey Thomas Eosinophils/100 WBC (Bld) 2.6 % Normal 0.9-7.0 [facility] Comment on above: Performed By: #### T 4LC #### [facility] [address] [place] [address] Dr. Jeffrey Thomas Erythrocyte distribution width (RBC) [Ratio] 15.7 % Critically high 11.0-15.0 [facility] Comment on above: Performed By: #### T 4LC #### [facility] [address] [place] [address] Dr. Jeffrey Thomas Hematocrit (Bld) [Volume fraction] 38.4 % Normal 36.0-48.0 [facility] Comment on above: Performed By: #### T 4LC #### [facility] [address] [place] [address] Dr. Jeffrey Thomas Hemoglobin (Bld) [Mass/Vol] 12.2 g/dL Normal 12.0-16.0 [facility] Comment on above: Performed By: #### T 4LC #### [facility] [address] [place] [address] Dr. Jeffrey Thomas IG # 0.04 10e3/ul Critically high 0.00-0.03 [facility] Comment on above: Performed By: #### T 4LC #### [facility] [address] [place] [address] Dr. Jeffrey Thomas IG % 0.5 % Normal 0.0-0.5 [facility] Comment on above: Performed By: #### T 4LC #### [facility] [address] [place] [address] Dr. Jeffrey Thomas LYMPH # 2.2 103/ul Normal 1.2-3.8 [facility] Comment on above: Performed By: #### T 4LC #### [facility] [address] [place] [address] Dr. Jeffrey Thomas Lymphocytes/100 WBC (Bld) 28.0 % Normal 20.5-60.0 [facility] Comment on above: Performed By: #### T 4LC #### [facility] [address] [place] [address] Dr. Jeffrey Thomas MANUAL DIFF REQ NO Normal [facility] Comment on above: Performed By: #### T 4LC #### [facility] [address] [place] [address] Dr. Jeffrey Thomas MCH (RBC) [Entitic mass] 30.9 pg Normal 26.7-34.0 [facility] Comment on above: Performed By: #### T 4LC #### [facility] [address] [place] [address] Dr. Jeffrey Thomas MCHC (RBC) [Mass/Vol] 31.8 g/dL Normal 29.9-35.2 [facility] Comment on above: Performed By: #### T 4LC #### [facility] [address] [place] [address] Dr. Jeffrey Thomas MCV (RBC) [Entitic vol] 97.2 fL Normal 81.0-99.0 [facility] Comment on above: Performed By: #### T 4LC #### [facility] [address] [place] [address] Dr. Jeffrey Thomas MONO # 0.6 103/ul Normal 0.3-0.8 [facility] Comment on above: Performed By: #### T 4LC #### [facility] [address] [place] [address] Dr. Jeffrey Thomas Monocytes/100 WBC (Bld) 7.9 % Normal 1.7-12.0 [facility] Comment on above: Performed By: #### T 4LC #### [facility] [address] [place] [address] Dr. Jeffrey Thomas NEUT # 4.7 103/ul Normal 1.4-6.5 [facility] Comment on above: Performed By: #### T 4LC #### [facility] [address] [place] [address] Dr. Jeffrey Thomas Neutrophils/100 WBC (Bld) 59.6 % Normal 43.0-75.0 [facility] Comment on above: Performed By: #### T 4LC #### [facility] [address] [place] [address] Dr. Jeffrey Thomas Platelet mean volume (Bld) [Entitic vol] 11.7 fL Normal 9.5-13.5 [facility] Comment on above: Performed By: #### T 4LC #### [facility] [address] [place] [address] Dr. Jeffrey Thomas PLT 256 103/ul Normal 150-450 [facility] Comment on above: Performed By: #### T 4LC #### [facility] [address] [place] [address] Dr. Jeffrey Thomas RBC 3.95 106/ul Critically low 4.20-5.40 [facility] Comment on above: Performed By: #### T 4LC #### [facility] [address] [place] [address] Dr. Jeffrey Thomas WBC 7.9 103/ul Normal 4.0-11.0 [facility] Comment on above: Performed By: #### T 4LC #### [facility] [address] [place] [address] Dr. Jeffrey Thomas BASO # 0.1 103/ul Normal 0.0-0.1 [facility] Comment on above: Performed By: #### C MP #### [facility] [address] [place] [address] Dr. Jeffrey Thomas Basophils/100 WBC (Bld) 1.4 % Normal 0.2-2.0 [facility] Comment on above: Performed By: #### C MP #### [facility] [address] [place] [address] Dr. Jeffrey Thomas EO # 0.2 103/ul Normal 0.0-0.7 [facility] Comment on above: Performed By: #### C MP #### [facility] [address] [place] [address] Dr. Jeffrey Thomas Eosinophils/100 WBC (Bld) 2.9 % Normal 0.9-7.0 [facility] Comment on above: Performed By: #### C MP #### [facility] [address] [place] [address] Dr. Jeffrey Thomas Erythrocyte distribution width (RBC) [Ratio] 15.7 % Critically high 11.0-15.0 [facility] Comment on above: Performed By: #### C MP #### [facility] [address] [place] [address] Dr. Jeffrey Thomas Hematocrit (Bld) [Volume fraction] 40.7 % Normal 36.0-48.0 [facility] Comment on above: Performed By: #### C MP #### [facility] [address] [place] [address] Dr. Jeffrey Thomas Hemoglobin (Bld) [Mass/Vol] 12.9 g/dL Normal 12.0-16.0 [facility] Comment on above: Performed By: #### C MP #### [facility] [address] [place] [address] Dr. Jeffrey Thomas IG # 0.02 10e3/ul Normal 0.00-0.03 [facility] Comment on above: Performed By: #### C MP #### [facility] [address] [place] [address] Dr. Jeffrey Thomas IG % 0.3 % Normal 0.0-0.5 [facility] Comment on above: Performed By: #### C MP #### [facility] [address] [place] [address] Dr. Jeffrey Thomas LYMPH # 1.7 103/ul Normal 1.2-3.8 [facility] Comment on above: Performed By: #### C MP #### [facility] [address] [place] [address] Dr. Jeffrey Thomas Lymphocytes/100 WBC (Bld) 28.4 % Normal 20.5-60.0 [facility] Comment on above: Performed By: #### C MP #### [facility] [address] [place] [address] Dr. Jeffrey Thomas MANUAL DIFF REQ NO Normal [facility] Comment on above: Performed By: #### C MP #### [facility] [address] [place] [address] Dr. Jeffrey Thomas MCH (RBC) [Entitic mass] 30.7 pg Normal 26.7-34.0 [facility] Comment on above: Performed By: #### C MP #### [facility] [address] [place] [address] Dr. Jeffrey Thomas MCHC (RBC) [Mass/Vol] 31.7 g/dL Normal 29.9-35.2 [facility] Comment on above: Performed By: #### C MP #### [facility] [address] [address] [address] Jeffrey Thomas MCV (RBC) [Entitic vol] 96.9 fL Normal 81.0-99.0 [facility] Comment on above: Performed By: #### C MP #### [facility] [address] [address] [address] Jeffrey Thomas MONO # 0.5 103/ul Normal 0.3-0.8 [facility] Comment on above: Performed By: #### C MP #### [facility] [address] [address] [address] Jeffrey Thomas Monocytes/100 WBC (Bld) 8.3 % Normal 1.7-12.0 [facility] Comment on above: Performed By: #### C MP #### [facility] [address] [address] [address] Jeffrey Thomas NEUT # 3.5 103/ul Normal 1.4-6.5 [facility] Comment on above: Performed By: #### C MP #### [facility] [address] [address] [address] Jeffrey Thomas Neutrophils/100 WBC (Bld) 58.7 % Normal 43.0-75.0 [facility] Comment on above: Performed By: #### C MP #### [facility] [address] [address] [address] Jeffrey Thomas Platelet mean volume (Bld) [Entitic vol] 11.5 fL Normal 9.5-13.5 [facility] Comment on above: Performed By: #### C MP #### [facility] [address] [address] [address] Jeffrey Thomas PLT 241 103/ul Normal 150-450 [facility] Comment on above: Performed By: #### C MP #### [facility] [address] [address] [address] Jeffrey Thomas RBC 4.20 106/ul Normal 4.20-5.40 [facility] Comment on above: Performed By: #### C MP #### [facility] [address] [address] [address] Jeffrey Thomas WBC 5.9 103/ul Normal 4.0-11.0 [facility] Comment on above: Performed By: #### C MP #### [facility] [address] [address] [address] Jeffrey Thomas BASO # 0.1 103/ul Normal 0.0-0.1 [facility] Comment on above: Performed By: #### A MM #### [facility] [address] [address] [address] Jeffrey Thomas Basophils/100 WBC (Bld) 1.7 % Normal 0.2-2.0 [facility] Comment on above: Performed By: #### A MM #### [facility] [address] [place] [address] Dr. Jeffrey Thomas EO # 0.1 103/ul Normal 0.0-0.7 [facility] Comment on above: Performed By: #### A MM #### [facility] [address] [place] [address] Dr. Jeffrey Thomas Eosinophils/100 WBC (Bld) 1.7 % Normal 0.9-7.0 [facility] Comment on above: Performed By: #### A MM #### [facility] [address] [place] [address] Dr. Jeffrey Thomas Erythrocyte distribution width (RBC) [Ratio] 15.6 % Critically high 11.0-15.0 [facility] Comment on above: Performed By: #### A MM #### [facility] [address] [place] [address] Dr. Jeffrey Thomas Hematocrit (Bld) [Volume fraction] 43.4 % Normal 36.0-48.0 [facility] Comment on above: Performed By: #### A MM #### [facility] [address] [place] [address] Dr. Jeffrey Thomas Hemoglobin (Bld) [Mass/Vol] 14.2 g/dL Normal 12.0-16.0 [facility] Comment on above: Performed By: #### A MM #### [facility] [address] [address] [address] Jeffrey Thomas IG # 0.04 10e3/ul Critically high 0.00-0.03 [facility] Comment on above: Performed By: #### A MM #### [facility] [address] [place] [address] Dr. Jeffrey Thomas IG % 0.6 % Critically high 0.0-0.5 [facility] Comment on above: Performed By: #### A MM #### [facility] [address] [place] [address] Dr. Jeffrey Thomas LYMPH # 2.2 103/ul Normal 1.2-3.8 [facility] Comment on above: Performed By: #### A MM #### [facility] [address] [place] [address] Dr. Jeffrey Thomas Lymphocytes/100 WBC (Bld) 32.7 % Normal 20.5-60.0 [facility] Comment on above: Performed By: #### A MM #### [facility] [facility] [address] [place] [address] Dr. Jeffrey Thomas MANUAL DIFF REQ NO Normal [facility] Comment on above: Performed By: #### A MM #### [facility] [address] [place] [address] Dr. Jeffrey Thomas MCH (RBC) [Entitic mass] 31.3 pg Normal 26.7-34.0 [facility] Comment on above: Performed By: #### A MM #### [facility] [address] [place] [address] Dr. Jeffrey Thomas MCHC (RBC) [Mass/Vol] 32.7 g/dL Normal 29.9-35.2 [facility] Comment on above: Performed By: #### A MM #### [facility] [address] [place] [address] Dr. Jeffrey Thomas MCV (RBC) [Entitic vol] 95.8 fL Normal 81.0-99.0 [facility] Comment on above: Performed By: #### A MM #### [facility] [address] [place] [address] Dr. Jeffrey Thomas MONO # 0.7 103/ul Normal 0.3-0.8 [facility] Comment on above: Performed By: #### A MM #### [facility] [address] [place] [address] Dr. Jeffrey Thomas Monocytes/100 WBC (Bld) 9.9 % Normal 1.7-12.0 [facility] Comment on above: Performed By: #### A MM #### [facility] [address] [place] [address] Dr. Jeffrey Thomas NEUT # 3.5 103/ul Normal 1.4-6.5 [facility] Comment on above: Performed By: #### A MM #### [facility] [address] [place] [address] Dr. Jeffrey Thomas Neutrophils/100 WBC (Bld) 53.4 % Normal 43.0-75.0 [facility] Comment on above: Performed By: #### A MM #### [facility] [address] [place] [address] Dr. Jeffrey Thomas Platelet mean volume (Bld) [Entitic vol] 12.1 fL Normal 9.5-13.5 [facility] Comment on above: Performed By: #### A MM #### [facility] [address] [place] [address] Dr. Jeffrey Thomas PLT 307 103/ul Normal 150-450 [facility] Comment on above: Performed By: #### A MM #### [facility] [address] [place] [address] Dr. Jeffrey Thomas RBC 4.53 106/ul Normal 4.20-5.40 [facility] Comment on above: Performed By: #### A MM #### [facility] [address] [place] [address] Dr. Jeffrey Thomas WBC 6.6 103/ul Normal 4.0-11.0 [facility] Comment on above: Performed By: #### A MM #### [facility] [address] [place] [address] Dr. Jeffrey Thomas Covid-19 PCR (CVDTBH)on 12-01 SARS-CoV-2 (COVID-19) RNA REBECCA+probe Ql (Unsp spec) Not detected Normal NOT DETECTED [facility] Comment on above: Result Comment: When diagnostic [...] for this test is supported by the [employer] and Human Service's declaration that [...] used). Performed By: #### C VDTB #### [facility] [address] [place] [address] Dr. Jeffrey Thomas DRUG SCREEN RAPID (URINE)on 12-12-2021 AMP Negative Normal NEGATIVE [facility] Comment on above: Performed By: #### T 4LC #### [facility] [address] [place] [address] Dr. Jeffrey Thomas BAR Negative Normal NEGATIVE [facility] Comment on above: Performed By: #### T 4LC #### [facility] [address] [place] [address] Dr. Jeffrey Thomas BUP Negative Normal NEGATIVE [facility] Comment on above: Performed By: #### T 4LC #### [facility] [address] [place] [address] Dr. Jeffrey Thomas BZO Positive Abnormal NEGATIVE [facility] Comment on above: Performed By: #### T 4LC #### [facility] [address] [place] [address] Dr. Jeffrey Thomas VIKASH Negative Normal NEGATIVE [facility] Comment on above: Performed By: #### T 4LC #### [facility] [address] [place] [address] Dr. Jeffrey Thomas CUT-OFFS SEE BELOW Normal [facility] Comment on above: Result Comment: AMP (Amphetamine): 500ng/mL, BAR (Barbituates): 200 ng/mL, BZO (Benzodiazepines): 150 ng/mL, BUP (Buprenorphine): 10 ng/mL, VIKASH (Cocaine): 150 ng/mL, mAMP (Methamphetamine): 500 ng/mL, MTD (Methadone): 200 ng/mL, OPI (Opiates): 100 ng/mL, OXY (Oxycodone): 100 ng/mL, PCP (Phencyclidine): 25 ng/mL, PPX (Propoxyphene): 300 ng/mL, THC (Cannabinoids): 50 ng/mL, TCA (Trycyclic Antidepressants): 300 ng/mL Performed By: #### T 4LC #### [facility] [address] [place] [address] Dr. Jeffrey Thomas DRUG CUT HEADER DRUG CLASS TEST SYSTEM CUT-OFF CONCENTRATIONS ARE FOLLOWS: Normal [facility] Comment on above: Performed By: #### T 4LC #### [facility] [address] [place] [address] Dr. Jeffrey Thomas mAMP Negative Normal NEGATIVE [facility] Comment on above: Performed By: #### T 4LC #### [facility] [address] [place] [address] Dr. Jeffrey Thomas MTD Negative Normal NEGATIVE [facility] Comment on above: Performed By: #### T 4LC #### [facility] [address] [place] [address] Dr. Jeffrey Thomas OPI Negative Normal NEGATIVE [facility] Comment on above: Performed By: #### T 4LC #### [facility] [address] [place] [address] Dr. Jeffrey Thomas OXY Negative Normal NEGATIVE [facility] Comment on above: Performed By: #### T 4LC #### [facility] [address] [place] [address] Dr. Jeffrey Thomas PCP Negative Normal NEGATIVE [facility] Comment on above: Performed By: #### T 4LC #### [facility] [address] [place] [address] Dr. Jeffrey Thomas PPX Negative Normal NEGATIVE [facility] Comment on above: Performed By: #### T 4LC #### [facility] [address] [place] [address] Dr. Jeffrey Thomas TCA Positive Abnormal NEGATIVE [facility] Comment on above: Performed By: #### T 4LC #### [facility] [address] [place] [address] Dr. Jeffrey Thomas THC Negative Normal NEGATIVE [facility] Comment on above: Performed By: #### T 4LC #### [facility] [address] [place] [address] Dr. Jeffrey Thomas AMP Negative Normal NEGATIVE [facility] Comment on above: Performed By: #### C MP #### [facility] [address] [place] [address] Dr. Jeffrey Thomas BAR Negative Normal NEGATIVE [facility] Comment on above: Performed By: #### C MP #### [facility] [address] [place] [address] Dr. Jeffrey Thomas BUP Negative Normal NEGATIVE [facility] Comment on above: Performed By: #### C MP #### [facility] [address] [place] [address] Dr. Jeffrey Thomas BZO Positive Abnormal NEGATIVE [facility] Comment on above: Performed By: #### C MP #### [facility] [address] [place] [address] Dr. Jeffrey Thomas VIKASH Negative Normal NEGATIVE [facility] Comment on above: Performed By: #### C MP #### [facility] [address] [place] [address] Dr. Jeffrey Thomas CUT-OFFS SEE BELOW Normal [facility] Comment on above: Result Comment: AMP (Amphetamine): 500ng/mL, BAR (Barbituates): 200 ng/mL, BZO (Benzodiazepines): 150 ng/mL, BUP (Buprenorphine): 10 ng/mL, VIKASH (Cocaine): 150 ng/mL, mAMP (Methamphetamine): 500 ng/mL, MTD (Methadone): 200 ng/mL, OPI (Opiates): 100 ng/mL, OXY (Oxycodone): 100 ng/mL, PCP (Phencyclidine): 25 ng/mL, PPX (Propoxyphene): 300 ng/mL, THC (Cannabinoids): 50 ng/mL, TCA (Trycyclic Antidepressants): 300 ng/mL Performed By: #### C MP #### [facility] [address] [place] [address] Dr. Jeffrey Thomas DRUG CUT HEADER DRUG CLASS TEST SYSTEM CUT-OFF CONCENTRATIONS ARE FOLLOWS: Normal [facility] Comment on above: Performed By: #### C MP #### [facility] [address] [place] [address] Dr. Jeffrey Thomas mAMP Negative Normal NEGATIVE [facility] Comment on above: Performed By: #### C MP #### [facility] [address] [place] [address] Dr. Jeffrey Thomas MTD Negative Normal NEGATIVE [facility] Comment on above: Performed By: #### C MP #### [facility] [address] [place] [address] Dr. Jeffrey Thomas OPI Negative Normal NEGATIVE [facility] Comment on above: Performed By: #### C MP #### [facility] [address] [place] [address] Dr. Jeffrey Thomas OXY Negative Normal NEGATIVE [facility] Comment on above: Performed By: #### C MP #### [facility] [address] [place] [address] Dr. Jeffrey Thomas PCP Negative Normal NEGATIVE [facility] Comment on above: Performed By: #### C MP #### [facility] [address] [place] [address] Dr. Jeffrey Thomas PPX Negative Normal NEGATIVE [facility] Comment on above: Performed By: #### C MP #### [facility] [address] [place] [address] Dr. Jeffrey Thomas TCA Positive Abnormal NEGATIVE [facility] Comment on above: Performed By: #### C MP #### [facility] [address] [place] [address] Dr. Jeffrey Thomas THC Negative Normal NEGATIVE [facility] Comment on above: Performed By: #### C MP #### [facility] [address] [address] [address] Jeffrey Thomas ER URINE PROFILEon 2 Bilirubin Ql (U) SMALL Abnormal NEGATIVE [facility] Comment on above: Performed By: #### C MP #### [facility] [address] [address] [address] Jeffrey Thomas Clarity (U) CLEAR Normal CLEAR [facility] Comment on above: Performed By: #### C MP #### [facility] [address] [address] [address] Jeffrey Thomas Color (U) YELLOW Normal YELLOW [facility] Comment on above: Performed By: #### C MP #### [facility] [address] [place] [address] Dr. Jeffrey HOFFMAN A micrscopic examination will be performed if indicated. Normal [facility] Comment on above: Performed By: #### C MP #### [facility] [address] [address] [address] Jeffrey Thomas Glucose Ql (U) Negative Normal NEGATIVE [facility] Comment on above: Performed By: #### C MP #### [facility] [address] [place] [address] Dr. Jeffrey Thomas Hemoglobin Ql (U) Negative Normal NEGATIVE [facility] Comment on above: Performed By: #### C MP #### [facility] [address] [address] [address] Jeffrey Thomas Ketones Ql (U) Negative Normal NEGATIVE [facility] Comment on above: Performed By: #### C MP #### [facility] [address] [address] [address] Jeffrey Thomas LEUKOCYTES Negative Normal NEGATIVE [facility] Comment on above: Performed By: #### C MP #### [facility] [address] [place] [address] Dr. Jeffrey Thomas Nitrite Ql (U) Negative Normal NEGATIVE [facility] Comment on above: Performed By: #### C MP #### [facility] [address] [place] [address] Dr. Jeffrey Thomas pH (U) 5.0 [pH] Normal 5-9 [facility] Comment on above: Performed By: #### C MP #### [facility] [address] [place] [address] Dr. Jeffrey Thomas SPEC GRAVITY 1.025 Normal 1.005-<=1.02 5 [facility] Comment on above: Performed By: #### C MP #### [facility] [address] [place] [address] Dr. Jeffrey Thomas UA PROTEIN Negative Normal NEGATIVE/ TRACE [facility] Comment on above: Performed By: #### C MP #### [facility] [address] [place] [address] Dr. Jeffrey Thomas UR MICRO IND NOT INDICATED Normal [facility] Comment on above: Performed By: #### C MP #### [facility] [address] [place] [address] Dr. Jeffrey Thomas Urobilinogen Qn (U) 0.2 {Bere'U}/dL Normal 0.2 - 1. 0 [facility] Comment on above: Performed By: #### C MP #### [facility] [address] [place] [address] Dr. Jeffrey Thomas PROF 14(COMP METB)on 022 Albumin [Mass/Vol] 2.9 g/dL Critically low 3.4-5.0 [facility] Comment on above: Performed By: #### C MP #### [facility] [address] [place] [address] Dr. Jeffrey Thomas Albumin/Globulin [Mass ratio] 1.0 {ratio} Normal [facility] Comment on above: Performed By: #### C MP #### [facility] [address] [place] [address] Dr. Jeffrey Thomas ALP [Catalytic activity/Vol] 116 U/L Normal 46-116 [facility] Comment on above: Performed By: #### C MP #### [facility] [address] [place] [address] Dr. Jeffrey Thomas ALT [Catalytic activity/Vol] 12 U/L Critically low 14-59 [facility] Comment on above: Performed By: #### C MP #### [facility] [address] [address] [address] Jeffrey Thomas Anion gap [Moles/Vol] 11.8 mmol/L Normal [facility] Comment on above: Performed By: #### C MP #### [facility] [address] [address] [address] Jeffrey Thomas AST [Catalytic activity/Vol] 12 U/L Critically low 15-37 [facility] Comment on above: Performed By: #### C MP #### [facility] [address] [place] [address] Dr. Jeffrey Thomas Bilirubin [Mass/Vol] 0.1 mg/dL Critically low 0.2-1.0 [facility] Comment on above: Performed By: #### C MP #### [facility] [address] [place] [address] Dr. Jeffrey Thomas Calcium [Mass/Vol] 8.2 mg/dL Critically low 8.5-10.1 [facility] Comment on above: Performed By: #### C MP #### [facility] [address] [place] [address] Dr. Jeffrey Thomas Chloride [Moles/Vol] 111 mmol/L Critically high 98-107 [facility] Comment on above: Performed By: #### C MP #### [facility] [address] [place] [address] Dr. Jeffrey Thomas CO2 [Moles/Vol] 20.2 mmol/L Critically low 21.0-32.0 [facility] Comment on above: Performed By: #### C MP #### [facility] [address] [place] [address] Dr. Jeffrey Thomas Creatinine [Mass/Vol] 1.26 mg/dL Critically high 0.55-1.02 [facility] Comment on above: Performed By: #### C MP #### [facility] [address] [place] [address] Dr. Jeffrey Thomas EGFR-AF LEBANESE 52 mL/min/1.73m2 Critically low >=60 [facility] Comment on above: Performed By: #### C MP #### [facility] [address] [address] [address] Jeffrey Thomas EGFR-NON AF LEBANESE 43 mL/min/1.73m2 Critically low >=60 [facility] Comment on above: Performed By: #### C MP #### [facility] [address] [address] [address] Jeffrey Thomas Globulin (S) [Mass/Vol] 3.0 g/dL Normal [facility] Comment on above: Performed By: #### C MP #### [facility] [address] [address] [address] Jeffrey Thomas Glucose [Mass/Vol] 131 mg/dL Critically high 74-106 T [facility] Comment on above: Performed By: #### C MP #### [facility] [address] [address] [address] Jeffrey Thomas Potassium [Moles/Vol] 4.0 mmol/L Normal 3.5-5.1 [facility] Comment on above: Performed By: #### C MP #### [facility] [address] [address] [address] Jeffrey Thomas Protein [Mass/Vol] 5.9 g/dL Critically low 6.4-8.2 Th [facility] Comment on above: Performed By: #### C MP #### [facility] [address] [address] [address] Jeffrey Thomas Sodium [Moles/Vol] 139 mmol/L Normal 136-145 [facility] Comment on above: Performed By: #### C MP #### [facility] [address] [address] [address] Jeffrey Thomas Urea nitrogen [Mass/Vol] 30.0 mg/dL Critically high 7.0-18.0 [facility] Comment on above: Performed By: #### C MP #### [facility] [address] [address] [address] Jeffrey Thomas Urea nitrogen/Creatinine [Mass ratio] 23.8 mg/mg Normal [facility] Comment on above: Performed By: #### C MP #### [facility] [address] [address] [address] Jeffrey Thomas Albumin [Mass/Vol] 3.1 g/dL Critically low 3.4-5.0 [facility] Comment on above: Performed By: #### C MP #### [facility] [address] [address] [address] Jeffrey Thomas Albumin/Globulin [Mass ratio] 1.0 {ratio} Normal [facility] Comment on above: Performed By: #### C MP #### [facility] [address] [place] [address] Dr. Jeffrey Thomas ALP [Catalytic activity/Vol] 119 U/L Critically high 46-116 [facility] Comment on above: Performed By: #### C MP #### [facility] [address] [place] [address] Dr. Jeffrey Thomas ALT [Catalytic activity/Vol] 13 U/L Critically low 14-59 [facility] Comment on above: Performed By: #### C MP #### [facility] [address] [place] [address] Dr. Jeffrey Thomas Anion gap [Moles/Vol] 11.9 mmol/L Normal [facility] Comment on above: Performed By: #### C MP #### [facility] [address] [place] [address] Dr. Jeffrey Thomas AST [Catalytic activity/Vol] 15 U/L Normal 15-37 [facility] Comment on above: Performed By: #### C MP #### [facility] [address] [place] [address] Dr. Jeffrey Thomas Bilirubin [Mass/Vol] 0.3 mg/dL Normal 0.2-1.0 [facility] Comment on above: Performed By: #### C MP #### [facility] [address] [place] [address] Dr. Jeffrey Thomas Calcium [Mass/Vol] 8.5 mg/dL Normal 8.5-10.1 [facility] Comment on above: Performed By: #### C MP #### [facility] [address] [address] [address] Jeffrey Thomas Chloride [Moles/Vol] 109 mmol/L Critically high 98-107 [facility] Comment on above: Performed By: #### C MP #### [facility] [address] [address] [address] Jeffrey Thomas CO2 [Moles/Vol] 21.9 mmol/L Normal 21.0-32.0 [facility] Comment on above: Performed By: #### C MP #### [facility] [address] [address] [address] Jeffrey Thomas Creatinine [Mass/Vol] 1.18 mg/dL Critically high 0.55-1.02 [facility] Comment on above: Performed By: #### C MP #### [facility] [address] [address] [address] Jeffrey Thomas EGFR-AF LEBANESE 56 mL/min/1.73m2 Critically low >=60 [facility] Comment on above: Performed By: #### C MP #### [facility] [address] [address] [address] Jeffrey Thomas EGFR-NON AF LEBANESE 46 mL/min/1.73m2 Critically low >=60 [facility] Comment on above: Performed By: #### C MP #### [facility] [address] [address] [address] Jeffrey Thomas Globulin (S) [Mass/Vol] 3.1 g/dL Normal [facility] Comment on above: Performed By: #### C MP #### [facility] [address] [address] [address] Jeffrey Thomas Glucose [Mass/Vol] 94 mg/dL Normal 74-106 [facility] Comment on above: Performed By: #### C MP #### [facility] [address] [address] [address] Jeffrey Thomas Potassium [Moles/Vol] 3.8 mmol/L Normal 3.5-5.1 [facility] Comment on above: Performed By: #### C MP #### [facility] [address] [address] [address] Jeffrey Thomas Protein [Mass/Vol] 6.2 g/dL Critically low 6.4-8.2 Th [facility] Comment on above: Performed By: #### C MP #### [facility] [address] [address] [address] Jeffrey Thomas Sodium [Moles/Vol] 139 mmol/L Normal 136-145 [facility] Comment on above: Performed By: #### C MP #### [facility] [address] [address] [address] Jeffrey Thomas Urea nitrogen [Mass/Vol] 27.0 mg/dL Critically high 7.0-18.0 [facility] Comment on above: Performed By: #### C MP #### [facility] [address] [address] [address] Jeffrey Thomas Urea nitrogen/Creatinine [Mass ratio] 22.9 mg/mg Normal [facility] Comment on above: Performed By: #### C MP #### [facility] [address] [address] [address] Jeffrey Thomas Albumin [Mass/Vol] 3.3 g/dL Critically low 3.4-5.0 [facility] Comment on above: Performed By: #### A MM #### [facility] [address] [address] [address] Jeffrey Thomas Albumin/Globulin [Mass ratio] 1.0 {ratio} Normal [facility] Comment on above: Performed By: #### A MM #### [facility] [address] [address] [address] Jeffrey Thomas ALP [Catalytic activity/Vol] 127 U/L Critically high 46-116 [facility] Comment on above: Performed By: #### A MM #### [facility] [address] [address] [address] Jeffrey Thomas ALT [Catalytic activity/Vol] 10 U/L Critically low 14-59 [facility] Comment on above: Performed By: #### A MM #### [facility] [address] [address] [address] Jeffrey Thomas Anion gap [Moles/Vol] 12.9 mmol/L Normal Th [facility] Comment on above: Performed By: #### A MM #### [facility] [address] [place] [address] Dr. Jeffrey Thomas AST [Catalytic activity/Vol] 20 U/L Normal 15-37 [facility] Comment on above: Performed By: #### A MM #### [facility] [address] [address] [address] Jeffrey Thomas Bilirubin [Mass/Vol] 0.3 mg/dL Normal 0.2-1.0 [facility] Comment on above: Performed By: #### A MM #### [facility] [address] [place] [address] Dr. Jeffrey Thoams Calcium [Mass/Vol] 8.9 mg/dL Normal 8.5-10.1 [facility] Comment on above: Performed By: #### A MM #### [facility] [address] [place] [address] Dr. Jeffrey Thomas Chloride [Moles/Vol] 106 mmol/L Normal 98-107 [facility] Comment on above: Performed By: #### A MM #### [facility] [address] [place] [address] Dr. Jeffrey Thomas CO2 [Moles/Vol] 21.8 mmol/L Normal 21.0-32.0 [facility] Comment on above: Performed By: #### A MM #### [facility] [address] [place] [address] Dr. Jeffrey Thomas Creatinine [Mass/Vol] 1.54 mg/dL Critically high 0.55-1.02 [facility] Comment on above: Performed By: #### A MM #### [facility] [address] [place] [address] Dr. Jeffrey Thomas EGFR-AF LEBANESE 41 mL/min/1.73m2 Critically low >=60 [facility] Comment on above: Performed By: #### A MM #### [facility] [address] [place] [address] Dr. Jeffrey Thomas EGFR-NON AF LEBANESE 34 mL/min/1.73m2 Critically low >=60 [facility] Comment on above: Performed By: #### A MM #### [facility] [address] [address] [address] Jeffrey Thomas Globulin (S) [Mass/Vol] 3.4 g/dL Normal [facility] Comment on above: Performed By: #### A MM #### [facility] [address] [address] [address] Jeffrey Thomas Glucose [Mass/Vol] 139 mg/dL Critically high 74-106 T [facility] Comment on above: Performed By: #### A MM #### [facility] [address] [place] [address] Dr. Jeffrey Thomas Potassium [Moles/Vol] 3.7 mmol/L Normal 3.5-5.1 [facility] Comment on above: Performed By: #### A MM #### [facility] [address] [place] [address] Dr. Jeffrey Thomas Protein [Mass/Vol] 6.7 g/dL Normal 6.4-8.2 [facility] Comment on above: Performed By: #### A MM #### [facility] [address] [place] [address] Dr. Jeffrey Thomas Sodium [Moles/Vol] 139 mmol/L Normal 136-145 [facility] Comment on above: Performed By: #### A MM #### [facility] [address] [address] [address] Jeffrey Thomas Urea nitrogen [Mass/Vol] 31.0 mg/dL Critically high 7.0-18.0 [facility] Comment on above: Performed By: #### A MM #### [facility] [address] [place] [address] Dr. Jeffrey Thomas Urea nitrogen/Creatinine [Mass ratio] 20.1 mg/mg Normal [facility] Comment on above: Performed By: #### A MM #### [facility] [address] [place] [address] Dr. Jeffrey Thomas PROTIMEon 12-12-2021 INR Coag (PPP) [Relative time] 1.13 {INR} Normal [facility] Comment on above: Performed By: #### T 4LC #### [facility] [address] [place] [address] Dr. Jeffrey Thomas INR GUIDELINES SEE BELOW Normal [facility] Comment on above: Result Comment: MERARI RED INR: 2.0 - 3.0 CONDITIONS NOT LISTED BELOW 2.5 - 3.5 FOR PROSTHETIC HEART VALVE REPLACEMENT 2.5 - 3.5 RECURRENT THROMBOSIS Performed By: #### T 4LC #### [facility] [address] [address] [address] Jeffrey Thomas PT Coag (PPP) [Time] 12.1 s Critically high 9.0-11.6 [facility] Comment on above: Performed By: #### T 4LC #### [facility] [address] [place] [address] Dr. Jeffrey Thomas TSHon 12-12-2021 TSH 0.729 uIU/mL Normal 0.358-3.740 [facility] Comment on above: Performed By: #### C MP #### [facility] [address] [place] [address] Dr. Jeffrey Thomas XR CHEST 1 Von [...] by: GUILLE RAY Date: 2021-12-11 23:48 Normal [facility] PT Coag (PPP) [Time]on 01-08 INR Coag (PPP) [Relative time] 1.5 {INR} <=5.0 [facility] Comment on above: The recommended ther apeutic INR range for most cardiac indications is 2.0-3.0 For high intensity therapy (i.e. mechanical heart valves), the recommended range is 2.5-3.5 Interpretation and review of laboratory results Abnormal [facility] PT Coag (Bld) [Time] 18.1 s High [facility] Basic metabolic 2000 panelon 01-07-2021 Calcium [Mass/Vol] 8.8 mg/dL Normal 8.5-10.6 [facility] Chloride [Moles/Vol] 107 mmol/L Normal 98-[address] [facility] CO2 [Moles/Vol] 25 mmol/L Normal 21-32 [facility] Creatinine [Mass/Vol] 1.87 mg/dL High 0.55-1.02 [facility] Glucose [Mass/Vol] 96 mg/dL Normal 70-99 [facility] Potassium [Moles/Vol] 4.5 mmol/L Normal 3.5-5.1 [facility] Sodium [Moles/Vol] 141 mmol/L Normal 136-145 [facility] Urea nitrogen (BldV) [Mass/Vol] 27 mg/dL High 7.0-18.0 [facility] Urea nitrogen/Creatinine [Mass ratio] 14 mg/mg Normal [facility] Coronavirus (COVID-19/SARS-C oV-2) RAPIDon 01-07-2021 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 N Normal [facility] First test N Normal [facility] ICU N Normal [facility] Illness or injury onset date and time Normal [facility] Patient was hospitalized because of this condition Y Normal [facility] status N Normal [facility] Resides in congregate care setting N Normal [facility] SARS-CoV-2 (COVID-19) RNA REBECCA+probe Ql (Resp) Not detected Normal NDET [facility] Comment on above: Result Comment: This test was performed via the [employer] ID NOW COVID 19 assay and has been authorized by FDA under an Emergency Use Authorization (EUA). The assay is validated for nasopharyngeal (NON DESTRUCTIVE TESTER), nasal, and oropharyngeal (OP) direct swabs. The [...] Symptomatic as defined by CDC N Normal [facility] Gentamicin Trough Levelon Gentamicin trough [Mass/Vol] 1.0 mg/L Normal [facility] Comment on above: Result Comment: Refe rence range: 0.0 to 2.0 Unit: UG/ML PT Coag (PPP) [Time]on 01-07 INR Coag (Bld) [Relative time] 1.3 {INR} Normal [facility] Comment on above: Order Comment: Preho [...] Coag (PPP) [Time] 15.7 s High 11.9-14.6 [facility] Comment on above: Order Comment: Preho spitalization had reported chronic use of Coumadin which was held for surgery. Tobramycin random [Moles/Vol ]on 01-07-2021 Tobramycin [Mass/Vol] SEE SEPARATE REPORT Normal 0.5-1 .5 [facility] Comment on above: Result Comment: SEE NOTES REVIEW TAB FOR RESULTS Basic metabolic 2000 panelon 01-06-2021 Calcium [Mass/Vol] 8.6 mg/dL Normal 8.5-10.6 [facility] Chloride [Moles/Vol] 107 mmol/L Normal 98-107 [facility] CO2 [Moles/Vol] 24 mmol/L Normal 21-32 [facility] Creatinine [Mass/Vol] 1.82 mg/dL High 0.55-1.02 [facility] Glucose [Mass/Vol] 87 mg/dL Normal 70-99 [facility] Potassium [Moles/Vol] 4.8 mmol/L Normal 3.5-5.1 [facility] Sodium [Moles/Vol] 140 mmol/L Normal 136-145 [facility] Urea nitrogen (BldV) [Mass/Vol] 30 mg/dL High 7.0-18.0 [facility] Urea nitrogen/Creatinine [Mass ratio] 16 mg/mg Normal [facility] Hematocriton 01-06-2021 Hematocrit (Bld) [Volume fraction] 28.9 % Low 34.0-50.0 [facility] Hemoglobinon 01-06-2021 Hemoglobin (Bld) [Mass/Vol] 9.4 g/dL Low 11.5-17.0 [facility] Histopathology Requeston Relevant diagnostic tests/laboratory data Narrative SPECIMEN DESCRIPTION 1 LEFT KNEE TISSUE RESULT SEE SEPARATE REPORT RESULT SEE NOTES REVIEW TAB FOR RESULTS ROUTINE LAB Report Date: 01/06/2021 09:09:05 Collect Date: 01/03/2021 12:44:00 Normal [facility] PT Coag (PPP) [Time]on 01-06 INR Coag (Bld) [Relative time] 1.1 {INR} Normal [facility] Comment on above: Order Comment: Preho [...] 14.2 s Normal 11.9-14.[address] [facility] Comment on above: Order Comment: Preho spitalization had reported chronic use of Coumadin which was held for surgery. Basic metabolic 2000 panelon 01-05-2021 Calcium [Mass/Vol] 8.1 mg/dL Low 8.5-10.6 [facility] Chloride [Moles/Vol] 108 mmol/L High 98-107 Moun t [facility] CO2 [Moles/Vol] 27 mmol/L Normal 21-32 [facility] Creatinine [Mass/Vol] 2.05 mg/dL High 0.55-1.02 [facility] Glucose [Mass/Vol] 91 mg/dL Normal 70-99 [facility] Potassium [Moles/Vol] 4.7 mmol/L Normal 3.5-5.1 [facility] Sodium [Moles/Vol] 141 mmol/L Normal 136-145 [facility] Urea nitrogen (BldV) [Mass/Vol] 36 mg/dL High 7.0-18.0 [facility] Urea nitrogen/Creatinine [Mass ratio] 18 mg/mg Normal [facility] CBC W Auto Differential pane l (Bld)on 01-05-2021 Basophils (Bld) [#/Vol] 0.1 thou/mcL Normal 0.0-0.2 [facility] Basophils/100 WBC (Bld) 0.9 % Normal 0-3 [facility] Differential cell count method Nom (Bld) AUTOMATED DIFFERENTIAL Normal [facility] Eosinophils (Bld) [#/Vol] 0.2 thou/mcL Normal 0.0-0.4 [facility] Eosinophils/100 WBC (Bld) 2.2 % Normal 0-7 [facility] Erythrocyte distribution width (RBC) [Entitic vol] 16.0 % High 11.7-15.0 [facility] Hematocrit (Bld) [Volume fraction] 21.4 % Low 34.0-50.0 [facility] Hemoglobin (Bld) [Mass/Vol] 6.8 g/dL Off scale low 11.5-17.0 [facility] Comment on above: Result Comment: RESU LTS VERIFIED AND CALLED TO/READ BACK BY ALFONSO HILARIO 01.05.21 @0559.BA Lymphocytes (Bld) [#/Vol] 0.9 thou/mcL Normal 0.7-4.5 [facility] Lymphocytes/100 WBC (Bld) 12.7 % Low 14-46 [facility] MCH (RBC) [Entitic mass] 27.2 Picograms Normal 27.0-34.0 [facility] MCHC (RBC) [Mass/Vol] 31.8 g/dL Low 32.0-36.0 [facility] MCV (RBC) [Entitic vol] 85.5 fL Normal 80-98 [facility] Monocytes (Bld) [#/Vol] 0.6 thou/mcL Normal 0.1-1.0 [facility] Monocytes/100 WBC (Bld) 8.1 % Normal 4-13 [facility] Neutrophils (Bld) [#/Vol] 5.7 thou/mcL Normal 1.5-7.8 [facility] Neutrophils/100 WBC (Bld) 76.1 % High 40-74 [facility] Platelet mean volume (Bld) [Entitic vol] 10.5 fL Normal 7.5-11.2 [facility] Platelets (Bld) [#/Vol] 141 thou/mcL Normal 140-415 [facility] RBC (Bld) [#/Vol] 2.50 x(10)6/mcL Low 3.80-5.60 [facility] WBC (Bld) [#/Vol] 7.5 thou/mcL Normal 4.0-10.5 [facility] Gentamicin Trough Levelon Gentamicin trough [Mass/Vol] 3.9 mg/L Critically high [facility] Comment on above: Result Comment: Refe michelle range: 0.0 to 2.0 Unit: UG/ML (NOTE) Critical value(s) on tests gentt called to and read-back by clementine nuñez at location [facility] by vinnie time called _01/05/21 12:20 Hematocriton 01-05-2021 Hematocrit (Bld) [Volume fraction] 27.2 % Low 34.0-50.0 [facility] Hemoglobinon 01-05-2021 Hemoglobin (Bld) [Mass/Vol] 8.8 g/dL Low 11.5-17.0 [facility] PT Coag (PPP) [Time]on 01-05 INR Coag (Bld) [Relative time] 1.1 {INR} Normal [facility] Comment on above: Order Comment: Preho [...] Pathology studyon 01-05-2021 Case report TRINITY GODINEZ [id number] YRS F [id number] /BD [id number] ORDERING PHYSICIAN: CALOS SMITH [...] cut surface is rogers-pink, soft and homogeneous. Pocketbook Maker sections are submitted in block A1. (RS/1C/MS/RT) Gross examination was performed at [facility]. AJB:MEI 01/04/21 By: LICHA ZEPEDA M.D. (Electronic Signature) MICROSCOPIC: The technical component was performed at [facility], [address] [place] [address]. Microscopic examination was performed. Case resulted at [facility]. DIAGNOSIS: Left knee tissue, revision arthroplasty: -DENSE FIBROUS TISSUE WITH PATCHY CHRONIC INFLAMMATION, FOREIGN BODY GIANT CELL REACTION, AND OSSEOUS METAPLASIA. NOTE: Perivascular lymphocytic inflammation is mild and patchy. JH2:JH2:JH21 END OF REPORT [facility] Comment on above: END OF REPORT flo[facility]do Prothrombin Timeon PT Coag (PPP) [Time] 14.5 s Normal 11.9-14.[address] [facility] Comment on above: Order Comment: Preho spitalization had reported chronic use of Coumadin which was held for surgery. Rh Confirm Nom (Bld)on 01-05 ABO group Nom (Bld) A Normal [facility] Rh Nom (Bld) Positive Normal [facility] Tobramycin random [Moles/Vol ]on 01-05-2021 Tobramycin [Mass/Vol] SEE SEPARATE REPORT Normal 0.5-1 .5 [facility] Comment on above: Result Comment: SEE NOTES REVIEW TAB FOR RESULTS Vancomycin [Moles/Vol]on Vancomycin random [Mass/Vol] <3.5 Off scale low 10.0-50.0 [facility] Basic metabolic 2000 panelon 01-04-2021 Calcium [Mass/Vol] 8.5 mg/dL Normal 8.5-10.6 [facility] Chloride [Moles/Vol] 104 mmol/L Normal 98-[address] [facility] CO2 [Moles/Vol] 26 mmol/L Normal 21-32 [facility] Creatinine [Mass/Vol] 2.32 mg/dL High 0.55-1.02 [facility] Glucose [Mass/Vol] 90 mg/dL Normal 70-99 [facility] Potassium [Moles/Vol] 5.7 mmol/L Critically high 3.5-5.1 [facility] Comment on above: Result Comment: RESU LTS VERIFIED AND CALLED TO/READ BACK BY ABRAM MCQUEEN 10..21 @ 0640. Sodium [Moles/Vol] 138 mmol/L Normal 136-145 [facility] Urea nitrogen (BldV) [Mass/Vol] 45 mg/dL High 7.0-18.0 [facility] Urea nitrogen/Creatinine [Mass ratio] 19 mg/mg Normal [facility] CBC W Auto Differential pane l (Bld)on 01-04-2021 Basophils (Bld) [#/Vol] 0.0 thou/mcL Normal 0.0-0.2 [facility] Basophils/100 WBC (Bld) 0.3 % Normal 0-3 [facility] Differential cell count method Nom (Bld) AUTOMATED DIFFERENTIAL Normal [facility] Eosinophils (Bld) [#/Vol] 0.0 thou/mcL Normal 0.0-0.4 [facility] Eosinophils/100 WBC (Bld) 0.2 % Normal 0-7 [facility] Erythrocyte distribution width (RBC) [Entitic vol] 15.5 % High 11.7-15.0 [facility] Hematocrit (Bld) [Volume fraction] 23.5 % Low 34.0-50.0 [facility] Hemoglobin (Bld) [Mass/Vol] 7.5 g/dL Low 11.5-17.0 [facility] Lymphocytes (Bld) [#/Vol] 1.0 thou/mcL Normal 0.7-4.5 [facility] Lymphocytes/100 WBC (Bld) 13.3 % Low 14-46 [facility] MCH (RBC) [Entitic mass] 27.4 Picograms Normal 27.0-34.0 [facility] MCHC (RBC) [Mass/Vol] 32.0 g/dL Normal 32.0-36.0 [facility] MCV (RBC) [Entitic vol] 85.5 fL Normal 80-98 [facility] Monocytes (Bld) [#/Vol] 0.6 thou/mcL Normal 0.1-1.0 [facility] Monocytes/100 WBC (Bld) 7.5 % Normal 4-13 [facility] Neutrophils (Bld) [#/Vol] 5.8 thou/mcL Normal 1.5-7.8 [facility] Neutrophils/100 WBC (Bld) 78.7 % High 40-74 [facility] Platelet mean volume (Bld) [Entitic vol] 10.5 fL Normal 7.5-11.2 [facility] Platelets (Bld) [#/Vol] 167 thou/mcL Normal 140-415 [facility] RBC (Bld) [#/Vol] 2.75 x(10)6/mcL Low 3.80-5.60 Mo [facility] WBC (Bld) [#/Vol] 7.3 thou/mcL Normal 4.0-10.5 [facility] PT Coag (PPP) [Time]on 01-04 INR Coag (Bld) [Relative time] 1.0 {INR} Normal [facility] Comment on above: Order Comment: Preho [...] Coag (PPP) [Time] 13.6 s Normal 11.9-14.6 [facility] Comment on above: Order Comment: [...] mid left lung, likely atelectasis or scarring. Donna thanks you for the opportunity to care for your patient. Workstation ID: [id number] - [id number] FINAL REPORT Dictated By: Garo Albarado MD 01/04/2021 11:41 Assigned Physician: Garo Albarado MD Reviewed and Electronically Signed By: Garo Albarado MD 01/04/2021 11:45 Transcribed by: [facility] 01/04/2021 11:41 Technologist: [facility] Garo Albarado MD - 01/08/2021 EXAMINATION TYPE: [...] Transcribed by: STEW 01/04/2021 11:41 Technologist: RAQUEL [facility] Radiology Study observation (narrative) [facility] XR CHEST 1 VIEWOrdered By: Austyn Albarado on 01-04-2021 flo[employer]do Work Phone: XR Chest 1 Viewon 01-04-2021 [...] by: STEW 01/04/2021 11:41 Technologist: RAQUEL Normal [facility] Blood type and Indirect anti body screen panel (Bld)on 01-03-2021 Blood group antibody screen Ql Negative Normal NEG [facility] Rh Nom (Bld) Positive Normal [facility] Cell Count Body Fluidon Cell count panel (Body fld) COLOR, FLUID RED Normal [facility] Culture Aerobicon 01-03-2021 Bacteria identified Aer cx Nom (Unsp spec) [facility] Microbiology PROCEDURE: Culture Aerobic SOURCE: Tissue BODY [...] NO EPITHELIALS SEEN, NO ORGANISMS SEEN Normal [facility] Comment on above: Performed By: #### 6 34-6 ####[address] Bacteria identified Aer cx Nom (Unsp spec) [facility] Microbiology PROCEDURE: Culture Aerobic SOURCE: Tissue BODY [...] NO EPITHELIALS SEEN, NO ORGANISMS SEEN Normal [facility] Comment on above: Performed By: #### 6 34-6 ####[address] Bacteria identified Aer cx Nom (Unsp spec) [facility] Microbiology PROCEDURE: Culture Aerobic SOURCE: Tissue BODY [...] NO EPITHELIALS SEEN, NO ORGANISMS SEEN Normal [facility] Comment on above: Performed By: #### 6 34-6 ####[address] Bacteria identified Aer cx Nom (Unsp spec) [facility] Microbiology PROCEDURE: Culture Aerobic SOURCE: Tissue BODY [...] NO EPITHELIALS SEEN, NO ORGANISMS SEEN Normal [facility] Comment on above: Performed By: #### 6 34-6 ####[address] Culture Anaerobicon 01-04-20 21 Bacteria identified Anaer cx Nom (Unsp spec) [facility] Microbiology PROCEDURE: Culture Anaerobic SOURCE: Tissue BODY [...] 23:34 EDT CONTRIBUTOR_SYSTEM, CO_PN CULTURE IN PROGRESS [facility] Comment on above: Performed By: #### 6 35-3 ####[address] Bacteria identified Anaer cx Nom (Unsp spec) [facility] Microbiology PROCEDURE: Culture Anaerobic SOURCE: Tissue BODY [...] 23:34 EDT CONTRIBUTOR_SYSTEM, CO_PN CULTURE IN PROGRESS [facility] Comment on above: Performed By: #### 6 35-3 ####[address] Bacteria identified Anaer cx Nom (Unsp spec) [facility] Microbiology PROCEDURE: Culture Anaerobic SOURCE: Tissue BODY [...] 23:34 EDT CONTRIBUTOR_SYSTEM, CO_PN CULTURE IN PROGRESS [facility] Comment on above: Performed By: #### 6 35-3 ####[address] Bacteria identified Anaer cx Nom (Unsp spec) [facility] Microbiology PROCEDURE: Culture Anaerobic SOURCE: Tissue BODY [...] 23:34 EDT CONTRIBUTOR_SYSTEM, CO_PN CULTURE IN PROGRESS [facility] Comment on above: Performed By: #### 6 35-3 ####[address] Bacteria identified Anaer cx Nom (Unsp spec) [facility] Microbiology PROCEDURE: Culture Anaerobic SOURCE: Joint Fl [...] 22:43 EDT CONTRIBUTOR_SYSTEM, CO_PN CULTURE IN PROGRESS [facility] Comment on above: Performed By: #### 6 35-3 ####[id number] [place], [place] Culture Funguson 01-03-2021 Fungus identified Cx Nom (Unsp spec) [facility] Microbiology PROCEDURE: Culture Fungus SOURCE: Tissue BODY [...] CULTURE WILL BE HELD FOR 1-4 WEEKS [facility] Comment on above: Performed By: #### 5 80-1 ####[address] Fungus identified Cx Nom (Unsp spec) [facility] Microbiology PROCEDURE: Culture Fungus SOURCE: Tissue BODY [...] CULTURE WILL BE HELD FOR 1-4 WEEKS [facility] Comment on above: Performed By: #### 5 80-1 ####[id number] [place], [place] Fungus identified Cx Nom (Unsp spec) [facility] Microbiology PROCEDURE: Culture Fungus SOURCE: Tissue BODY [...] CULTURE WILL BE HELD FOR 1-4 WEEKS [facility] Comment on above: Performed By: #### 5 80-1 ####[id number] [place], [place] Fungus identified Cx Nom (Unsp spec) [facility] Microbiology PROCEDURE: Culture Fungus SOURCE: Tissue BODY [...] CULTURE WILL BE HELD FOR 1-4 WEEKS [facility] Comment on above: Performed By: #### 5 80-1 ####[address] [place], [place] Fungus identified Cx Nom (Unsp spec) [facility] Microbiology PROCEDURE: Culture Fungus SOURCE: Joint Fl [...] WILL BE HELD FOR 1-4 WEEKS Normal [facility] Comment on above: Performed By: #### 5 80-1 ####[facility] [address] [place], [place] Hematocriton 01-03-2021 Hematocrit (Bld) [Volume fraction] 31.6 % Low 34.0-50.0 [facility] Hemoglobinon 01-03-2021 Hemoglobin (Bld) [Mass/Vol] 10.4 g/dL Low 11.5-17.0 [facility] OR Nursingon 01-03-2021 OR Nursing Normal [facility] PACU I Nursingon 01-03-2021 PACU I Nursing CO NA PACU I Nursing Record Summary Primary Physician: Calos Smith Jr, MD Finalized Date/Time: 01/03/21 15:55:58 Pt. Name: TRINITY GODINEZ/Sex: 1955 Female Med Rec #: [id number] Physician: Calos Smith Jr, MD Financial #: [id number] Pt. Type: I Room/Bed: / Admit/Disch: 01/03/21 09:09:00 - Institution: [facility] NA OR Main PACU I Case Times [...] By: Taryn Leonard RN 01/03/21 15:55 Normal [facility] PT Coag (PPP) [Time]on 01-03 INR Coag (Bld) [Relative time] 1.1 {INR} Normal [facility] Comment on above: Result Comment: DHARMESHI [...] Austyn Viveros/Sex: 1955 Female Med Rec #: [id number] Physician: Calos Smith Jr, MD Financial #: [id number] Pt. Type: I Room/Bed: / Admit/Disch: 01/03/21 [...] Zoya Hinson RN, I 01/03/21 12:12 Normal [facility] Prothrombin Timeon 1 PT Coag (PPP) [Time] 13.7 s Normal 11.9-14.6 Moun t [facility] Surgical Pathology Final Rep tom 01-03-2021 Pathology study TRINITY GODINEZ [id number] YRS F [id number] /BD [id number] ORDERING PHYSICIAN: CALOS SMITH [...] cut surface is rogers-pink, soft and homogeneous. Pocketbook Maker sections are submitted in block A1. (RS/1C/MS/RT) Gross examination was performed at [facility]. AJB:MEI 01/04/21 By: LICHA ZEPEDA M.D. (Electronic Signature) MICROSCOPIC: The technical component was performed at [facility], [address] [place] [address]. Microscopic examination was performed. Case resulted at [facility]. DIAGNOSIS: Left knee tissue, revision arthroplasty: -DENSE FIBROUS TISSUE WITH PATCHY CHRONIC INFLAMMATION, FOREIGN BODY GIANT CELL REACTION, AND OSSEOUS METAPLASIA. NOTE: Perivascular lymphocytic inflammation is mild and patchy. JH2:JH2:JH21 END OF REPORT END OF REPORT Normal [facility] XR KNEE 1-2 VIEWS LTon 01-03 [...] 15:49 Technologist: EILEEN IM HISTORICAL RESULTS Kerri Reyan MD - 01/08/2021 LEFT KNEE 01/03/2021 HISTORY: [...] Kerri Reyna MD 01/03/2021 15:53 Transcribed by: [facility] 01/03/2021 15:49 Technologist: EILEEN flo.do Radiology Study observation (narrative) flo.do XR KNEE 1-2 VIEWS LTOrdered By: Kerri Reyna on 01-03-2021 [employer] Phone: XR Knee 1-2 Views LTon 01-03 [...] Left knee arthroplasty revision as detailed above. Donna thanks you for the opportunity to care for your patient. Workstation ID: [id number] FINAL REPORT Dictated By: Kerri Reyna MD 01/03/2021 15:49 Assigned Physician: Kerri Reyna MD Reviewed and Electronically Signed By: Kerri Reyna MD 01/03/2021 15:53 Transcribed by: STEW 01/03/2021 15:49 Technologist: DT Normal [facility] aPTT Coag (Bld) [Time]on aPTT Coag (PPP) [Time] 25.0 s Normal 23.2-34.6 [facility] Histopathology Requeston Relevant diagnostic tests/laboratory data Narrative SPECIMEN DESCRIPTION 1 LEFT KNEE RESULT SEE SEPARATE REPORT RESULT SEE NOTES REVIEW TAB FOR RESULTS ROUTINE LAB Report Date: 11/24/2020 05:51:32 Collect Date: 11/19/2020 13:56:00 Normal [facility] Basic metabolic 2000 panelon 11-22-2020 Calcium [Mass/Vol] 8.0 mg/dL Low 8.5-10.6 [facility] Chloride [Moles/Vol] 103 mmol/L Normal 98-[address] [facility] CO2 [Moles/Vol] 29 mmol/L Normal 21-32 [facility] Creatinine [Mass/Vol] 1.09 mg/dL High 0.55-1.02 Arin nt [facility] Glucose [Mass/Vol] 93 mg/dL Normal 70-99 [facility] Potassium [Moles/Vol] 4.4 mmol/L Normal 3.5-5.1 [facility] Sodium [Moles/Vol] 138 mmol/L Normal 136-145 [facility] Urea nitrogen (BldV) [Mass/Vol] 18 mg/dL Normal 7.0-18.0 [facility] Urea nitrogen/Creatinine [Mass ratio] 17 mg/mg Normal [facility] CBC W Auto Differential pane l (Bld)on 11-22-2020 Basophils (Bld) [#/Vol] 0.0 thou/mcL Normal 0.0-0.2 [facility] Basophils/100 WBC (Bld) 0.7 % Normal 0-3 [facility] Differential cell count method Nom (Bld) AUTOMATED DIFFERENTIAL Normal [facility] Eosinophils (Bld) [#/Vol] 0.2 thou/mcL Normal 0.0-0.4 [facility] Eosinophils/100 WBC (Bld) 3.5 % Normal 0-7 [facility] Erythrocyte distribution width (RBC) [Entitic vol] 14.3 % Normal 11.7-15.0 [facility] Hematocrit (Bld) [Volume fraction] 24.8 % Low 34.0-50.0 [facility] Hemoglobin (Bld) [Mass/Vol] 8.2 g/dL Low 11.5-17.0 [facility] Lymphocytes (Bld) [#/Vol] 1.1 thou/mcL Normal 0.7-4.5 [facility] Lymphocytes/100 WBC (Bld) 17.5 % Normal 14-46 [facility] MCH (RBC) [Entitic mass] 29.9 Picograms Normal 27.0-34.0 [facility] MCHC (RBC) [Mass/Vol] 33.0 g/dL Normal 32.0-36.0 [facility] MCV (RBC) [Entitic vol] 90.7 fL Normal 80-98 [facility] Monocytes (Bld) [#/Vol] 0.8 thou/mcL Normal 0.1-1.0 [facility] Monocytes/100 WBC (Bld) 13.0 % Normal 4-13 [facility] Neutrophils (Bld) [#/Vol] 4.2 thou/mcL Normal 1.5-7.8 [facility] Neutrophils/100 WBC (Bld) 65.3 % Normal 40-74 [facility] Platelet mean volume (Bld) [Entitic vol] 10.2 fL Normal 7.5-11.2 [facility] Platelets (Bld) [#/Vol] 176 thou/mcL Normal 140-415 [facility] RBC (Bld) [#/Vol] 2.74 x(10)6/mcL Low 3.80-5.60 Mo [facility] WBC (Bld) [#/Vol] 6.5 thou/mcL Normal 4.0-10.5 [facility] Coronavirus (COVID-19/SARS-C oV-2) RAPIDon 11-22-2020 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 N Normal [facility] First test N Normal [facility] ICU N Normal [facility] Illness or injury onset date and time Normal [facility] Patient was hospitalized because of this condition Y [facility] status N Normal [facility] Resides in congregate care setting N Normal [facility] SARS-CoV-2 (COVID-19) RNA REBECCA+probe Ql (Resp) Not detected Normal NDET [facility] Comment on above: Result Comment: This test was performed via the [employer] ID NOW COVID 19 assay and has been authorized by FDA under an Emergency Use Authorization (EUA). The assay is validated for nasopharyngeal (NON DESTRUCTIVE TESTER), nasal, and oropharyngeal (OP) direct swabs. The [...] Symptomatic as defined by CDC N Normal [facility] OR Nursingon 11-22-2020 OR Nursing Normal [facility] PT Coag (PPP) [Time]on 11-22 INR Coag (Bld) [Relative time] 1.4 {INR} Normal [facility] Comment on above: Result Comment: NOEMÍ [...] room and take this document with you. [facility] 11/22/20 14:48 [address] [place]. [address] PATIENT INFORMATION Name: TRINITY GODINEZ Address: [address] [place], [place] [address] Age: 65 Years Phone: [phone] : 1955 12:00 Sex: Female Race: White Ethnicity: Not Hispan/Lat Admitted From: Clinic or [facility] Medical Service: Orthopedic Surgery Nurse Unit/Bed: (CO) 2N 0221-01 Admit Date: 11/19/2020 09:38 PCP: Levi Shine MD PHYSICIANS INVOLVED WITH CARE ------ Attending Physicians: Ming Quinn MD , Calos - Orthopaedic Surg Admitting Physician: Ming Quinn MD , Calos - Orthopaedic Surg Primary Care Physician:Levi Shine MD,[facility], - Consults: Shailesh VEGA , Grabiel Maciel - Infectious Disease Andrew VEGA , Jose E - Internal Medicine Mario VEGA , Trey E - Internal Medicine Heather, CHAVO - Internal Medicine Angeles VEGA , [place] W - Internal Medicine FOLLOW-UP APPOINTMENTS: Provider: Specialty: Address: Date: Calos Smith Jr, MD Orthopaedic Surg [address] [facility] [address] [facility] [phone] (1) Three Weeks Comment: Call for an Appointment AND ANY QUESTIONS OR CONCERNS Provider: Specialty: Address: Date: Grabiel Hicks MD Infectious Disease [address] [phone] (1) Call for an Appointment Comment: 1) call soon for an appointment with Dr. Hicks in 4-5 weeks, 2) you will be on IV antibiotic until the time of your reimplantation, 3) every Sunday the nursing staff will collect blood work (CBC,SR,CRP,Creat, Vanco Trough) and fax to Dr. Hicks ([phone]), 4) call sooner for fever, chills, nausea, vomiting, diarrhea, rash, pain in your PICC arm or worsening condtion of your wound. Provider: Specialty: Address: Date: Levi Shine MD Family Practice [address] [phone] (1) Follow-up as needed Provider: Specialty: Address: Date: [facility] Follow-up as needed Comment: [facility] [phone] ALLERGIES: NSAIDs : Reaction:Anaphylactic reaction Ancef : [...] doses are changed, or new medications (including zwzm-ybx-bbafwyl products) are added. Ask your doctor if [...] CBC,SR,Creat,CRP, Vanco Trough, fax to Dr. Hicks [phone] 3)IV ATB UNTIL reimplant 4)Call Dr. Hicks [...] Insomnia/Sleep. T (more content not included)... Normal [facility] Prothrombin Timeon PT Coag (PPP) [Time] 16.9 s High 11.9-14.6 Moun t [facility] Vancomycin [Moles/Vol]on Vancomycin random [Mass/Vol] 28.3 ZZ Normal 10.0-50.0 [facility] Basic metabolic 2000 panelon 11-21-2020 Calcium [Mass/Vol] 8.2 mg/dL Low 8.5-10.6 [facility] Chloride [Moles/Vol] 106 mmol/L Normal 98-107 Moun t [facility] CO2 [Moles/Vol] 29 mmol/L Normal 21-32 [facility] Creatinine [Mass/Vol] 1.07 mg/dL High 0.55-1.02 Arin nt [facility] Glucose [Mass/Vol] 94 mg/dL Normal 70-99 [facility] Potassium [Moles/Vol] 4.3 mmol/L Normal 3.5-5.1 [facility] Sodium [Moles/Vol] 141 mmol/L Normal 136-145 [facility] Urea nitrogen (BldV) [Mass/Vol] 18 mg/dL Normal 7.0-18.0 [facility] Urea nitrogen/Creatinine [Mass ratio] 17 mg/mg Normal [facility] CBC W Auto Differential pane l (Bld)on 11-21-2020 Basophils (Bld) [#/Vol] 0.0 thou/mcL Normal 0.0-0.2 [facility] Basophils/100 WBC (Bld) 0.7 % Normal 0-3 [facility] Differential cell count method Nom (Bld) AUTOMATED DIFFERENTIAL Normal [facility] Eosinophils (Bld) [#/Vol] 0.1 thou/mcL Normal 0.0-0.4 [facility] Eosinophils/100 WBC (Bld) 1.6 % Normal 0-7 [facility] Lymphocytes (Bld) [#/Vol] 1.3 thou/mcL Normal 0.7-4.5 [facility] Lymphocytes/100 WBC (Bld) 18.7 % Normal 14-46 [facility] Monocytes (Bld) [#/Vol] 0.8 thou/mcL Normal 0.1-1.0 [facility] Monocytes/100 WBC (Bld) 12.1 % Normal 4-13 [facility] Neutrophils (Bld) [#/Vol] 4.6 thou/mcL Normal 1.5-7.8 [facility] Neutrophils/100 WBC (Bld) 66.9 % Normal 40-74 [facility] Erythrocyte distribution width (RBC) [Entitic vol] 14.6 % Normal 11.7-15.0 [facility] Hematocrit (Bld) [Volume fraction] 25.9 % Low 34.0-50.0 [facility] Hemoglobin (Bld) [Mass/Vol] 8.5 g/dL Low 11.5-17.0 [facility] MCH (RBC) [Entitic mass] 29.8 Picograms Normal 27.0-34.0 [facility] MCHC (RBC) [Mass/Vol] 32.8 g/dL Normal 32.0-36.0 [facility] MCV (RBC) [Entitic vol] 90.9 fL Normal 80-98 [facility] Platelet mean volume (Bld) [Entitic vol] 9.9 fL Normal 7.5-11.2 [facility] Platelets (Bld) [#/Vol] 181 thou/mcL Normal 140-415 [facility] RBC (Bld) [#/Vol] 2.85 x(10)6/mcL Low 3.80-5.60 Mo [facility] WBC (Bld) [#/Vol] 7.0 thou/mcL Normal 4.0-10.5 [facility] PT Coag (PPP) [Time]on 11-21 INR Coag (Bld) [Relative time] 1.4 {INR} Normal [facility] Comment on above: Result Comment: NOEMÍ GOMEZ THE INDUCTION PHASE OF ORAL ANTICOAGULATION, THE INR MAY NOT REFLECT THE ANTICOAGULANT STATUS OF THE PATIENT. THERAPEUTIC RANGES FOR INR'S ARE: MOST CLINICAL SITUATIONS: INR 2.0-3.0 MECHANICAL PROSTHETIC VALVES: INR 2.5-3.5 CRITICAL: INR 5.0 Prothrombin Timeon PT Coag (PPP) [Time] 17.1 s High 11.9-14.[address] [facility] Basic metabolic 2000 panelon 11-20-2020 Calcium [Mass/Vol] 8.3 mg/dL Low 8.5-10.6 [facility] Chloride [Moles/Vol] 104 mmol/L Normal 98-[address] [facility] CO2 [Moles/Vol] 24 mmol/L Normal 21-32 [facility] Creatinine [Mass/Vol] 0.97 mg/dL Normal 0.55-1.02 [facility] Glucose [Mass/Vol] 126 mg/dL High 70-99 [facility] Potassium [Moles/Vol] 4.4 mmol/L Normal 3.5-5.1 [facility] Sodium [Moles/Vol] 139 mmol/L Normal 136-145 [facility] Urea nitrogen (BldV) [Mass/Vol] 18 mg/dL Normal 7.0-18.0 [facility] Urea nitrogen/Creatinine [Mass ratio] 19 mg/mg Normal [facility] CBC W Auto Differential pane l (Bld)on 11-20-2020 Basophils (Bld) [#/Vol] 0.0 thou/mcL Normal 0.0-0.2 [facility] Basophils/100 WBC (Bld) 0.2 % Normal 0-3 [facility] Differential cell count method Nom (Bld) AUTOMATED DIFFERENTIAL Normal [facility] Eosinophils (Bld) [#/Vol] 0.0 thou/mcL Normal 0.0-0.4 [facility] Eosinophils/100 WBC (Bld) 0.0 % Normal 0-7 [facility] Lymphocytes (Bld) [#/Vol] 0.9 thou/mcL Normal 0.7-4.5 [facility] Lymphocytes/100 WBC (Bld) 9.1 % Low 14-46 [facility] Monocytes (Bld) [#/Vol] 0.9 thou/mcL Normal 0.1-1.0 [facility] Monocytes/100 WBC (Bld) 9.2 % Normal 4-13 [facility] Neutrophils (Bld) [#/Vol] 7.8 thou/mcL Normal 1.5-7.8 [facility] Neutrophils/100 WBC (Bld) 81.5 % High 40-74 [facility] Erythrocyte distribution width (RBC) [Entitic vol] 14.7 % Normal 11.7-15.0 [facility] Hematocrit (Bld) [Volume fraction] 30.7 % Low 34.0-50.0 [facility] Hemoglobin (Bld) [Mass/Vol] 10.2 g/dL Low 11.5-17.0 [facility] MCH (RBC) [Entitic mass] 30.3 Picograms Normal 27.0-34.0 [facility] MCHC (RBC) [Mass/Vol] 33.3 g/dL Normal 32.0-36.0 [facility] MCV (RBC) [Entitic vol] 90.9 fL Normal 80-98 [facility] Platelet mean volume (Bld) [Entitic vol] 11.1 fL Normal 7.5-11.2 [facility] Platelets (Bld) [#/Vol] 246 thou/mcL Normal 140-415 [facility] RBC (Bld) [#/Vol] 3.38 x(10)6/mcL Low 3.80-5.60 Mo [facility] WBC (Bld) [#/Vol] 9.5 thou/mcL Normal 4.0-10.5 [facility] PT Coag (PPP) [Time]on 11-20 INR Coag (Bld) [Relative time] 1.0 {INR} Normal [facility] Comment on above: Result Comment: NOEMÍ GOMEZ THE INDUCTION PHASE OF ORAL ANTICOAGULATION, THE INR MAY NOT REFLECT THE ANTICOAGULANT STATUS OF THE PATIENT. THERAPEUTIC RANGES FOR INR'S ARE: MOST CLINICAL SITUATIONS: INR 2.0-3.0 MECHANICAL PROSTHETIC VALVES: INR 2.5-3.5 CRITICAL: INR 5.0 Prothrombin Timeon PT Coag (PPP) [Time] 13.6 s Normal 11.9-14.[address] [facility] Anesthesia Recordon 11-20-19 Anesthesia Record Patient: TRINITY GODINEZ MRN: ([id number] Age: 65 years Sex: Female : 1955 Associated Diagnoses: None Author: Angel Wyatt MD Procedure Time Out Lee Protocol: patient identity verified, site verified, side verified, procedure to be done verified, patient position verified. REGIONAL ANESTHESIA PROCEDURE Procedure date and begin time: Peripheral nerve block. Procedure date and end time: See nursing notes. Performed by: Angel Wyatt MD. Assisted by: no speech language pathology assistant. Informed consent: signed by patient. Technique: [...] Diagnosis Preoperative Diagnosis: Postoperative Diagnosis: . Normal [facility] Culture Aerobicon 11-19-2020 Bacteria identified Aer cx Nom (Unsp spec) [facility] Microbiology PROCEDURE: Culture Aerobic SOURCE: Tissue BODY [...] NO EPITHELIALS SEEN, NO ORGANISMS SEEN Normal [facility] Comment on above: Performed By: #### 6 34-6 ####[address] Bacteria identified Aer cx Nom (Unsp spec) [facility] Microbiology PROCEDURE: Culture Aerobic SOURCE: Tissue BODY [...] POLYS RARE EPIS NO ORGANISMS SEEN Normal [facility] Comment on above: Performed By: #### 6 34-6 ####[address] Bacteria identified Aer cx Nom (Unsp spec) [facility] Microbiology PROCEDURE: Culture Aerobic SOURCE: Tissue BODY [...] POLYS No Epithelials NO ORGANISMS SEEN Normal [facility] Comment on above: Performed By: #### 6 34-6 ####[address] Bacteria identified Aer cx Nom (Unsp spec) [facility] Microbiology PROCEDURE: Culture Aerobic SOURCE: Tissue BODY [...] POLYS No Epithelials NO ORGANISMS SEEN Normal [facility] Comment on above: Performed By: #### 6 34-6 ####[address] Culture Anaerobicon 11-20-19 21 Bacteria identified Anaer cx Nom (Unsp spec) [facility] Microbiology PROCEDURE: Culture Anaerobic SOURCE: Tissue BODY [...] EDT CONTRIBUTOR_SYSTEM, CO_PN CULTURE IN PROGRESS Normal [facility] Comment on above: Performed By: #### 6 35-3 ####[address] Bacteria identified Anaer cx Nom (Unsp spec) [facility] Microbiology PROCEDURE: Culture Anaerobic SOURCE: Tissue BODY [...] 20:36 EDT CONTRIBUTOR_SYSTEM, CO_PN CULTURE IN PROGRESS [facility] Comment on above: Performed By: #### 6 35-3 ####[address] Bacteria identified Anaer cx Nom (Unsp spec) [facility] Microbiology PROCEDURE: Culture Anaerobic SOURCE: Tissue BODY [...] 20:36 EDT CONTRIBUTOR_SYSTEM, CO_PN CULTURE IN PROGRESS [facility] Comment on above: Performed By: #### 6 35-3 ####[address] Bacteria identified Anaer cx Nom (Unsp spec) [facility] Microbiology PROCEDURE: Culture Anaerobic SOURCE: Tissue BODY [...] 20:36 EDT CONTRIBUTOR_SYSTEM, CO_PN CULTURE IN PROGRESS [facility] Comment on above: Performed By: #### 6 35-3 ####[facility] [address] [place], [place] Culture Funguson 11-19-2020 Fungus identified Cx Nom (Unsp spec) [facility] Microbiology PROCEDURE: Culture Fungus SOURCE: Tissue BODY [...] CULTURE WILL BE HELD FOR 1-4 WEEKS [facility] Comment on above: Performed By: #### 5 80-1 ####[id number] [place], [place] Fungus identified Cx Nom (Unsp spec) [facility] Microbiology PROCEDURE: Culture Fungus SOURCE: Tissue BODY [...] CULTURE WILL BE HELD FOR 1-4 WEEKS [facility] Comment on above: Performed By: #### 5 80-1 ####[address] Fungus identified Cx Nom (Unsp spec) [facility] Microbiology PROCEDURE: Culture Fungus SOURCE: Tissue BODY [...] CULTURE WILL BE HELD FOR 1-4 WEEKS [facility] Comment on above: Performed By: #### 5 80-1 ####[address] Fungus identified Cx Nom (Unsp spec) [facility] Microbiology PROCEDURE: Culture Fungus SOURCE: Tissue BODY [...] WILL BE HELD FOR 1-4 WEEKS Normal [facility] Comment on above: Performed By: #### 5 80-1 ####[facility] [address] [place], [place] PACU I Nursingon 11-19-2020 PACU I Nursing CO NA PACU I Nursing Record Summary Primary Physician: Calos Smith Jr, MD Finalized Date/Time: 11/19/20 18:19:26 Pt. Name: TRINITY GODINEZ/Sex: 1955 Female Med Rec #: [id number] Physician: Calos Smith Jr, MD Financial #: [id number] Pt. Type: I Room/Bed: / Admit/Disch: 11/19/20 [...] By: Teresita Franco RN 11/19/20 18:19 Normal [facility] PreOp Nursingon 11-19-2020 PreOp Nursing CO NA PreOp Nursing Record Summary Primary Physician: Calos Smith Jr, MD Finalized Date/Time: 11/19/20 13:09:57 Pt. Name: TRINITY GODINEZ/Sex: 1955 Female Med Rec #: [id number] Physician: Calos Smith Jr, MD Financial #: [id number] Pt. Type: I Room/Bed: / Admit/Disch: 11/19/20 [...] By: Cortes Mcclain RN 11/19/20 13:09 Normal [facility] Surgical Pathology Final Rep tom 11-19-2020 Pathology study TRINITY GODINEZ [id number] YRS F [id number] / [id number] ORDERING PHYSICIAN: CALOS SMITH [...] cut surface is rogers-pink, soft and homogeneous. Pocketbook Maker sections are submitted in block (A1). (RS/1C/MS/RT) Gross examination was performed at [facility]. AJB:ASPEN 11/22/20 By: LICHA ZEPEDA M.D. (Electronic Signature) MICROSCOPIC: The technical component was performed at [facility], [address] [place] [address]. Microscopic examination was performed. Case resulted at [facility]. 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 NOTE: There is no significant perivascular lymphocytic inflammation. JH2:JH2:JH208 END OF REPORT END OF REPORT Normal [facility] XR Knee 1-2 Views LTon 08-20 [...] is present. Anterior skin elvira are noted. Donna thanks you for the opportunity to care for your patient. Workstation ID: [id number] FINAL REPORT Dictated By: Abdias Morejon MD 11/19/2020 16:54 Assigned Physician: Abdias Morejon MD Reviewed and Electronically Signed By: Abdias Morejon MD 11/19/2020 16:56 Transcribed by: STEW 11/19/2020 16:54 Technologist: BASIL [facility] PreOp Nursingon 11-18-2020 PreOp Nursing CO NA PreOp Nursing Record Summary Primary Physician: Calos Smith Jr, MD Finalized Date/Time: 11/18/20 15:01:45 Pt. Name: TRINITY GODINEZ/Sex: 1955 Female Med Rec #: [id number] Physician: Calos Smith Jr, MD Financial #: [id number] Pt. Type: I Room/Bed: / Admit/Disch: 11/17/20 [...] Signed By: Deisi Wu RN 11/18/20 15:01 [facility] PT Coag (PPP) [Time]on 11-17 INR Coag (Bld) [Relative time] 1.1 {INR} Normal [facility] Comment on above: Result Comment: NOEMÍ JASON THE INDUCTION PHASE OF ORAL ANTICOAGULATION, THE INR MAY NOT REFLECT THE ANTICOAGULANT STATUS OF THE PATIENT. THERAPEUTIC RANGES FOR INR'S ARE: MOST CLINICAL SITUATIONS: INR 2.0-3.0 MECHANICAL PROSTHETIC VALVES: INR 2.5-3.5 CRITICAL: INR 5.0 Prothrombin Timeon PT Coag (PPP) [Time] 14.1 s Normal 11.9-14.[address] [facility] aPTT Coag (Bld) [Time]on aPTT Coag (PPP) [Time] 25.4 s Normal 23.2-34.6 [facility] Basic metabolic 2000 panelon 11-15-2020 Calcium [Mass/Vol] 9.7 mg/dL Normal 8.5-10.6 [facility] Chloride [Moles/Vol] 100 mmol/L Normal 98-[address] [facility] CO2 [Moles/Vol] 26 mmol/L Normal 21-32 [facility] Creatinine [Mass/Vol] 1.25 mg/dL High 0.55-1.02 [facility] Glucose [Mass/Vol] 79 mg/dL Normal 70-99 [facility] Potassium [Moles/Vol] 4.0 mmol/L Normal 3.5-5.1 [facility] Sodium [Moles/Vol] 137 mmol/L Normal 136-145 [facility] Urea nitrogen (BldV) [Mass/Vol] 31 mg/dL High 7.0-18.0 [facility] Urea nitrogen/Creatinine [Mass ratio] 25 mg/mg Normal [facility] Blood type and Indirect anti body screen panel (Bld)on 11-15-2020 Blood group antibody screen Ql Negative Normal NEG [facility] Rh Nom (Bld) Positive Normal [facility] C-Reactive Proteinon 021 CRP [Mass/Vol] 5.1 mg/L Normal 0.0-9.0 [facility] CBC W Auto Differential pane l (Bld)on 11-15-2020 Basophils (Bld) [#/Vol] 0.1 thou/mcL Normal 0.0-0.2 [facility] Basophils/100 WBC (Bld) 1.3 % Normal 0-3 [facility] Differential cell count method Nom (Bld) AUTOMATED DIFFERENTIAL Normal [facility] Eosinophils (Bld) [#/Vol] 0.2 thou/mcL Normal 0.0-0.4 [facility] Eosinophils/100 WBC (Bld) 2.7 % Normal 0-7 [facility] Erythrocyte distribution width (RBC) [Entitic vol] 15.2 % High 11.7-15.0 [facility] Hematocrit (Bld) [Volume fraction] 38.1 % Normal 34.0-50.0 [facility] Hemoglobin (Bld) [Mass/Vol] 12.5 g/dL Normal 11.5-17.0 [facility] Lymphocytes (Bld) [#/Vol] 1.8 thou/mcL Normal 0.7-4.5 [facility] Lymphocytes/100 WBC (Bld) 21.9 % Normal 14-46 [facility] MCH (RBC) [Entitic mass] 30.0 Picograms Normal 27.0-34.0 [facility] MCHC (RBC) [Mass/Vol] 32.9 g/dL Normal 32.0-36.0 [facility] MCV (RBC) [Entitic vol] 91.3 fL Normal 80-98 [facility] Monocytes (Bld) [#/Vol] 0.5 thou/mcL Normal 0.1-1.0 [facility] Monocytes/100 WBC (Bld) 6.6 % Normal 4-13 [facility] Neutrophils (Bld) [#/Vol] 5.5 thou/mcL Normal 1.5-7.8 [facility] Neutrophils/100 WBC (Bld) 67.5 % Normal 40-74 [facility] Platelet mean volume (Bld) [Entitic vol] 9.9 fL Normal 7.5-11.2 [facility] Platelets (Bld) [#/Vol] 314 thou/mcL Normal 140-415 [facility] RBC (Bld) [#/Vol] 4.17 x(10)6/mcL Normal 3.80-5.60 Mo [facility] WBC (Bld) [#/Vol] 8.1 thou/mcL Normal 4.0-10.5 [facility] PT Coag (PPP) [Time]on 11-15 INR Coag (Bld) [Relative time] 1.5 {INR} Normal [facility] Comment on above: Result Comment: DURI NG THE INDUCTION PHASE OF ORAL ANTICOAGULATION, THE INR MAY NOT REFLECT THE ANTICOAGULANT STATUS OF THE PATIENT. THERAPEUTIC RANGES FOR INR'S ARE: MOST CLINICAL SITUATIONS: INR 2.0-3.0 MECHANICAL PROSTHETIC VALVES: INR 2.5-3.5 CRITICAL: INR 5.0 Prothrombin Timeon PT Coag (PPP) [Time] 17.7 s High 11.9-14.6 [facility] Sedimentation Rate rbcon ESR (Bld) [Velocity] 52 mm/h [facility] 0-[facility] Coag (Bld) [Time]on aPTT Coag (PPP) [Time] 27.8 s Normal 23.2-34.6 [facility] Prothrombin Time INRon 11-08 INR Coag (PPP) [Relative time] 1.4 {INR} Normal [facility] Comment on above: Result Comment: INR [...] heart valves: 3 - 4.5 PERFORMED BY: [place] [address] PATHOLOGIST METAL SOLDERER JEFFREY GEIGER M.D. Performed By: #### P T #### [facility] [address] [place] [address] PT Coag (PPP) [Time] 15.5 s High 9.0-12.9 [facility] Comment on above: Performed By: #### P T #### [facility] [address] [id number] [facility] Consultation Noteon 08-24-19 Consultation Note [id number]. 00CD:127 Normal [facility] Operative Reporton Operative Report [id number] .00CD:127 Normal [facility] Pathology Noteon 08-23-2020 Pathology Note [id number] .00CD:127 Normal [facility] Consultation Noteon 08-20-19 Consultation Note [id number] .[id number]:127 [facility] Facesheeton 08-19-2020 Facesheet [id number] .00CD:127 Normal [facility] Vital Signs Date Time Vital Sign Value Performing Clinician Faci lity 04-22-2022 11:44-0500 Body temperature 99.1 [degF] Calos Smith MD Work Phone: [email or web address] 04-22-2022 11:44-0500 Diastolic blood pressure 62 mm[Hg] Calos Smith MD Work Phone: [email or web address] 04-22-2022 11:44-0500 Heart rate 90 /min Calos Smith MD Work Phone: [email or web address] 04-22-2022 11:44-0500 Respiratory rate 12 /min Calos Smith MD Work Phone: [email or web address] 04-22-2022 11:44-0500 SaO2% (BldA) [Mass fraction] 92 % Calos Smith MD Work Phone: [email or web address] 04-22-2022 11:44-0500 Systolic blood pressure 109 mm[Hg] Calos Smith MD Work Phone: [email or web address] 04-20-2022 12:25-0500 Body height 172.7 cm Calos Smith MD Work Phone: [email or web address] 04-20-2022 12:25-0500 Body mass index (BMI) [Ratio] 27.12 kg/m2 Calos Smith MD Work Phone: [email or web address] 04-20-2022 12:25-0500 Body weight 80.9 kg Calos Smith MD Work Phone: [email or web address] 01-06-2022 10:05-0400 Diastolic blood pressure 63 mm[Hg] Calos Smith MD Work Phone: [email or web address] 01-06-2022 10:05-0400 Heart rate 84 /min Calos Smith MD Work Phone: [email or web address] 01-06-2022 10:05-0400 Systolic blood pressure 111 mm[Hg] Calos Smith MD Work Phone: [email or web address] 01-06-2022 07:55-0400 SaO2% (BldA) [Mass fraction] 96 % Calos Smith MD Work Phone: [email or web address] 01-06-2022 07:52-0400 Body temperature 97 [degF] Calos Smith MD Work Phone: [email or web address] 01-06-2022 04:28-0400 Respiratory rate 12 /min Calos Smith MD Work Phone: [email or web address] 01-03-2022 07:10-0400 Body height 172.7 cm Calos Smith MD Work Phone: [email or web address] 01-03-2022 07:10-0400 Body mass index (BMI) [Ratio] 27.05 kg/m2 Calos Smith MD Work Phone: [email or web address] 01-03-2022 07:10-0400 Body weight 80.7 kg Calos Smith MD Work Phone: [email or web address] 01-08-2021 09:00-0400 SaO2% (BldA) [Mass fraction] 93 % Calos Smith MD Work Phone: [email or web address] 01-08-2021 08:12-0400 Body temperature 97.2 [degF] Calos Smith MD Work Phone: [email or web address] 01-08-2021 08:12-0400 Diastolic blood pressure 83 mm[Hg] Calos Smith MD Work Phone: [email or web address] 01-08-2021 08:12-0400 Heart rate 76 /min Calos Smith MD Work Phone: [email or web address] 01-08-2021 08:12-0400 Respiratory rate 12 /min Calos Smith MD Work Phone: [email or web address] 01-08-2021 08:12-0400 Systolic blood pressure 125 mm[Hg] Calos Smith MD Work Phone: [email or web address] 01-06-2021 13:37-0400 Body height 175.3 cm Calos Smith MD Work Phone: [email or web address] Comment on above: Pt reported 01-06-2021 13:37-0400 Body mass index (BMI) [Ratio] 30.41 kg/m2 Calos Smith MD Work Phone: [email or web address] 01-06-2021 13:37-0400 Body weight 93.4 kg Calos Smith MD Work Phone: [email or web address] Comment on above: Actual Encounters Encounter Date Encounter Type Care Provider Facility Start: 02-19-2023 ambulatory BRITTANY WOOD [facility] Start: 08-26-2022 End: 08-30-[address] LEVI SHINE . Facility:[facility] Start: 08-25-[address] LEVI SHINE . Facili ty:[facility] Start: 08-23-2022 End: 08-23-2022 ambulatory JACKY HOWELL Facility:[facility] Start: 08-22-[address] LEVI SHINE . Facili ty:[facility] Start: 08-01-2022 End: 08-02-[address] LEVI SHINE . Facility:[facility] Start: 05-22-2022 End: 05-23-[address] LEVI SHINE . Facility:[facility] Start: 05-04-2022 ambulatory BRITTANY NINA [facility] Start: 05-03-2022 ambulatory BRITTANY WOOD [facility] Start: 05-02-2022 ambulatory LEVI SHINE [facility] Start: 05-01-2022 ambulatory LEVI SHINE [facility] Start: 04-30-2022 [facility] Start: 04-29-2022 ambulatory [facility] Start: 04-29-2022 Encounter for [facility] adult medical examination without abnormal findings [facility] Start: 04-28-2022 ambulatory LEVI SHINE [facility] Start: 04-27-2022 ambulatory LEVI SHINE [facility] Start: 04-26-2022 ambulatory LEVI SHINE [facility] Start: 04-25-2022 ambulatory LEVI SHINE [facility] Start: 04-24-2022 ambulatory GRANT NINA [facility] Start: 04-23-2022 ambulatory GRANT NINA [facility] Start: 04-20-2022 End: 04-22-2022 Evaluation and management of inpatient LEVI SHINE [facility] Start: 04-20-2022 End: 04-22-2022 Evaluation and management of inpatient Calos Smith MD Work Phone: [facility] Comment on above: Other mechanical com plication of internal left knee prosthesis, initial encounter ([facility]) Start: 04-18-2022 End: 04-18-[address] LEVI SHINE . Facility:[facility] Start: 02-14-[address] LEVI SHINE . Facili ty:[facility] Start: 01-31-2022 End: 03-01-2022 ambulatory SHAIKH Raheem FOWLER Facility:[facility] Start: 01-05-2022 Encounter for preprocedural laboratory examination DR LEVI SHINE . [facility] Start: 01-03-2022 End: 01-06-2022 Evaluation and management of inpatient Calos Smith MD Work Phone: [facility] Start: 01-03-2022 End: 01-06-2022 Subsequent hospital visit by physician Calos Smith MD Work Phone: [facility] Start: 01-02-2022 End: 01-03-[address] LEVI SHINE . Facility:[facility] Start: 01-02-2022 End: 01-03-2022 Encounter for preprocedural laboratory examination DR LEVI SHINE . Facility:[facility] Start: 12-31-2021 ambulatory SHAIKH Raheem PARKEREMMA Facilit y:[facility] Start: 12-12-2021 End: 12-14-[address] LEVI SHINE . Facility:[facility] Start: 10-21-2021 End: 10-22-[address] LEVI SHINE . Facility:[facility] Start: 01-11-2021 ambulatory CALOS SMITH JR. Fac ility:[facility] Start: 01-03-2021 End: 01-08-2021 Evaluation and management of inpatient Calos Smith MD Work Phone: [facility] Start: 05-18-2020 End: 06-17-2020 ambulatory KARAN SULLIVAN Facility:[facility] Start: 05-12-2020 End: 05-27-2020 ambulatory KARAN SULLIVAN Facility:[facility] Procedures Date Procedure Procedure Detail Performing [...] above: Performed By: #### 3 [id number] #### [facility] [address] [place] [address] Start: 01-05-2022 Prothrombin time Chong Hsieh MD [...] Tdap) DTaP,Tdap,and Td Vaccines (2 - Tdap) [facility] Start: 04-22-2023 Hypertension/CHF/CAD Annual BMP Blood Test Hypertension/CHF/CAD Annual BMP Blood Test [facility] Start: 01-05-2023 Hypertension/CHF/CAD Annual BMP Blood Test Hypertension/CHF/CAD Annual BMP Blood Test [facility] Start: 12-01-2021 Influenza vaccination Influenza Vacc ine (#1) [facility] Start: 08-19-2021 COVID-19 Vaccine (4 - Booster for Pfizer series) COVID-19 Vaccine (4 - Booster for Pfizer series) [facility] Start: 01-16-2021 COVID-19 Vaccine (3 - Booster for Pfizer series) COVID-19 Vaccine (3 - Booster for Pfizer series) [facility] Start: 12-20-2020 Hypertension/CHF/CAD Annual BMP Blood Test Hypertension/CHF/CAD Annual BMP Blood Test [facility] Start: 12-15-2020 Adolescent depressio n screening assessment Depression Screening [facility] Start: 12-15-2020 Depression Screening Depression Scre ening [facility] Start: 12-15-2020 Hepatitis C screening Hepatitis C Sc reening [facility] Start: 12-15-2020 HIV screening HIV Screening [facility] Start: 12-15-2020 Lipid panel Cholesterol Sc reening (Lipid Panel) [facility] Start: 12-15-2020 Medicare Annual Well ness Visit Medicare Annual Wellness Visit [facility] Start: 12-15-2020 Screening for malign ant neoplasm of breast Breast Cancer Screening [facility] Start: 12-15-2020 Screening for malign ant neoplasm of colon Colorectal Cancer Screening: Colonoscopy [facility] Start: 12-15-2020 Screening for malign ant neoplasm of lung Lung Cancer Screening (Low Dose CT) [facility] Start: 12-15-2020 Social Influencers o f Health Screening Social Influencers of Health Screening [facility] Start: 12-01-2020 Influenza vaccination Influenza Vacc ine (#1) [facility] Start: 02-01-2016 Pneumococcal Vaccine : Pediatrics (0 to 5 Years) and At-Risk Patients (6 to 64 Years) (2 - PCV) Pneumococcal Vaccine: Pediatrics (0 to 5 Years) and At-Risk Patients (6 to 64 Years) (2 - PCV) [facility] Start: 2007 Zoster Vaccines (1 of 2) Zoster Vacc ngozi (1 of 2) [facility] Start: 1978 Screening for malign ant neoplasm of cervix Cervical Cancer Screening: Pap Smear [facility] Start: 1976 DTaP,Tdap,and Td Vac cines (1 - Tdap) DTaP,Tdap,and Td Vaccines (1 - Tdap) [facility] Start: 1957 Hepatitis B Vaccines (1 of 3 - 3-dose series) Hepatitis B Vaccines (1 of 3 - 3-dose series) [facility] Bacteria identified in Tissue by Culture Culture tissue with gram stain Microbiology Routine 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, initial encounter ([facility]) 04/20/2022 2:13 PM EST [email or web address] Bacteria identified in Unspecified specimen by Anaerobe culture Tanvi Ulaola Work Phone: Bacteria identified in Unspecified specimen by Sterile body fluid culture Culture body fluid with gram stain Microbiology Routine 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, initial encounter ([facility]) 04/20/2022 2:10 PM EST [email or web address] End: 01-08-2021 Communication order: Respiratory Communication order: Respiratory Respiratory Care Routine Once for 1 Occurrences starting 01/08/2021 until 01/08/2021 [email or web address] Comment on above: Once for 1 Occurrenc es starting 01/08/2021 until 01/08/2021 Fungus identified in Skin by Culture [email or web address] Incentive spirometry RT Incentiv e spirometry RT Respiratory Care Routine Daily until discontinued starting 01/08/2021 [email or web address] Comment on above: Daily until disconti nued starting 01/08/2021 Mycobacterium sp identified in Unspecified specimen by Organism specific culture [email or web address] End: 01-13-2021 Prothrombin time (PT) Prothrombin time with INR Lab Routine Daily for 6 Days starting 01/08/2021 until 01/13/2021, 1 completed [facility] Work Phone: Comment on above: Daily for 6 Days sta rting 01/08/2021 until 01/13/2021, 1 completed Immunizations Immunization Date Immunization Notes Care Provider Fa pattity 02-10-2021 influenza virus vacc ine, unspecified formulation Calos Ming MD Work Phone: [facility] 01-03-2020 influenza virus vacc ine, unspecified formulation Calos Smith MD Work Phone: [facility] Payers Date Payer Category Payer Medicare MEDICARE MEDICAR E RAILROAD [id number] 2015-Present [address] [address] [place] [address] Medicare [id number] 2015 Medicare MEDICARE MEDICAR E RAILROAD [id number] 2015-Present [address] [address] [place] [address] Medicare [id number] 1959 Medicare [id number] 1959 Private Health Insurance [id number] 1957 Unknown [id number] 2.16.840.1.302167.3.579.2 .647 1957 Unknown [id number] 2.16.840.1.915921.3.579.2 .647 1957 Unknown [id number] 2.16.840.1.297661.3.579.2 .593 1957 Unknown [id number] 2.16.840.1.332708.3.579.2 .593 1957 Unknown [id number] 2.16.840.1.983136.3.579.2 .593 1957 Unknown [id number] 2.16.840.1.069804.3.579.2 .593 1957 Unknown [id number] 2.16.840.1.867762.3.579.2 .593 1957 Unknown [id number] 2.16.840.1.041033.3.579.2 .593 1957 Unknown [id number] 2.16.840.1.223568.3.579.2 .593 1957 Unknown [id number] 2.16.840.1.009753.3.579.2 .593 1957 Unknown [id number] 2.16.840.1.793602.3.579.2 .593 1957 Unknown [id number] 2.16.840.1.124314.3.579.2 .593 1957 Unknown [id number] 2.16.840.1.990396.3.579.2 .593 1957 Unknown [id number] 2.16.840.1.007773.3.579.2 .593 1957 Unknown [id number] 2..840.1.374183.3.579.2 .593 1957 Unknown [id number] 2.16.840.1.629663.3.579.2 .114 1957 Unknown [id number] 2.16.840.1.545324.3.579.2 .114 1957 Unknown [id number] 2.16.840.1.998887.3.579.2 .114 1957 Unknown [id number] 2.16.840.1.944410.3.579.2 .114 1957 Unknown [id number] 2.16.840.1.178711.3.579.2 .114 1957 Unknown [id number] 2.16.840.1.317550.3.579.2 .114 1957 Unknown [id number] 2.16.840.1.761134.3.579.2 .114 1957 Unknown [id number] 2.16.840.1.056168.3.579.2 .114 1957 Unknown [id number] 2.16.840.1.845345.3.579.2 .1143 1957 Unknown [id number] 2.16.840.1.595659.3.579.2 .1143 1957 Unknown [id number] 2.16.840.1.670577.3.579.2 .1143 Social History Date Type Detail Facility Tobacco smoking stat [facility] Unknown [facility] smoked [facility] Start: 1955 Sex Assigned At Not on file [facility] Start: 12-30-2021 Tobacco smoking stat [facility] Ex-smoker [facility] End: 08-31-2021 History of tobacco use Current smoker [facility] End: 08-31-2021 History of tobacco use Cigarette Smoker [facility] Start: 12-30-2021 Tobacco use and exposure Smokeless t obacco non-user [facility] Start: 01-03-2022 End: 04-20-2022 Alcohol intake Lifetime non-drinker (finding) [facility] Start: 12-24-2021 End: 04-20-2022 Exposure to SARS-CoV-2 (event) Not sure [facility] Medical Equipment Procedure Code Equipment Code Equipment Origin al Text Equipment Identifier Dates Cement Bone Biom et R 1x40 - [facility] - [id number] ()[id number])[id number], [id number] [facility] Start: 01-03-2022 Knee Tib Brg Ant Stbl [id number] - [facility] - [id number] ()[id number] 1)NA, [id number] [facility] Start: 01-03-2022 Clinical Notes 11-17-2020 [...] picking her up around 12-12:30. Delroy at [facility] updated pt to arrive around 1. CARLOTA spoke with Delroy at [facility]. They can accept the pt today. No HENS needed. Pt will need a covid test Arbjqg-[phone] [id number]-[phone] Delroy will need updated with a transport [...] Clarity 04/20/2022 Hazy Body Fluid Color 04/20/2022 [place]len Body Fluid RBC 04/20/2022 25,000 Body Fluid [...] 04/20/2022 16:06 Post-op Progress Note Subjective Procedure: MO RECONSTR DISLOCATING PATELLA W EXT REALIGNMENT AND/OR MUSCLE ADVMNT/RLS [24076] (Left knee extensor mechanism realignment with lateral retinacular release) MO LATERAL RETINACULAR RELEASE OPEN [69092] Interval History: Shannon Godinez, 66 y.o. female, [...] Plan for discharge to Subacute Rehab Facility ([facility] or [facility]) when cleared by PT and medically stable [...] or worsening End of Shift Summary: Progressing [facility]- Referral received and chart reviewed. Patient accepted by [facility]. Spoke to patient over phone and answered questions. She has been to our facility in the past. Will follow in in AM. Patient needs a rapid Covid prior to admission. Alicia Jacobo RN [phone] If [facility] can not accept the patient would like the next referral to [facility] Patient not discharging today called Dr Simpson and telephone order received to start the cleocin 300mg Q12hr for 10days as ordered for discharge Updated the patient she needs to choose another facility and she states she has gone to [facility] and would like a referral and sent. Called Admissions and they will review the referral. Spoke to [facility] and they have no beds. [phone]. Have tried constantly for 15 minutes to call [facility] and no one answers. Line rings abut 10 times and then cuts off. [phone] Called Admissions at [facility] and she has the referral and will let CM know shortly if they will accept [facility] Physical Therapy Treatment PT Discharge Recommendations: custodial facility placement Distance Ambulated (ft): 30 Device: [...] of care until patient is discharged from [facility]. Objective 04/21/22 1401 General Family/Caregiver Present No [...] PT Plan Skilled PT PT Discharge Recommendations custodial facility placement Goals/Education Encounter Problems Encounter Problems [...] Understanding Education Comments No comments found. 04/21/22 6456 Clinical Encounter Type Visited With Patient Time [...] daily for 7 days DC aspirin. Called [facility]. [facility] they have the referral and could be able to answer within an hour if they will be able to accept. Message left for Dr Simpson as patient can not take aspirin for a new anticoag order Called [facility] and spoke to the commercial front load operator. [phone]. Admissions is not in for another hour or two. She states they do have beds and faxed the referral to [phone] Patient would like [facility]. Referral sent and message left for Admissions Belen Cast [phone] but they are an IPR and since the last IPR said she did not qualify for IPR CM is not anticipating an acceptance. Discussed with the patient and she would liek a referral to [facility] Patient eating lunch. Declines at this time to finish eating. Will attempt again in pm. Patient would like the [facility] in [place], Called the [facility] spoke to Alphonso [phone] She does not have beds until Maybe next week. Updated the patient she would like to try [facility] in [facility] called [phone] spoke to Connie she does not have beds until at less next Sunday Patient would like IPR at [facility] Called Cori [phone] fax [phone] In admissions with referral and she does [...] opiates, and antibiotics to surgical service. Disposition: custodial facility. Subjective Patient reports pain is currently [...] Plan for discharge to Subacute Rehab Facility ([facility] or [facility]) when cleared by PT and medically stable [...] d/c to SNF when able. [facility] Evaluation PT Discharge Recommendations: custodial facility placement Distance Ambulated (ft): 30 Device: [...] right Complication of internal left knee prosthesis ([facility]) 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, initial encounter ([facility]) Past Medical History: Diagnosis Date Anxiety Arthritis Chronic pain disorder COPD (chronic obstructive pulmonary disease) ([facility]) GERD (gastroesophageal reflux disease) Hypertension Pulmonary embolism ([facility]) 2019 Wears dentures Wears glasses Past Surgical [...] of Steps 5 Prior Function Level of Stokes Independent with mobility and functional transfers Receives [...] 1-2 times per day PT Discharge Recommendations custodial facility placement PT - Evaluation Status Complete [...] what SNF she wants to go to [facility]. Brother will transport. CM will complete assessment tomorrow However Referral to [facility] faxed to [phone] still need P.T. Eval and will need Written Rx's on Rounds for SNF Son notified not to pickling operator the prescriptions Escribed to her pharmacy. Patient has not arrived to the IP floor for CM assessment Will be seen tomorrow Pain rated at 7 but respiratory rate as low as 9 per minute. Vital signs stable. Meets criteria for discharge/transfer from PACU. documented in this encounter [facility] 04-22-2022 Hospital course Narrative Coumadin-At discharge please follow up with your prescribing provider regarding follow up/labs and appointment. Please follow surgeon's discharge instructions and prescription directions. Surgeon' discharge instructions are in patient's folder- FOLLOW SURGEON INSTRUCTION SHEETS Contact Surgeon's office with any questions/concerns [phone] [facility] -PT/OT [...] (see Additional Instructions)LAST DOSE /12 MEDS PER [facility] Additional Instructions: Instructions to prepare for [...] prior to your surgery. Check in at medical office receptionist desk [address] [place] [address]. If Outpatient, these additional instructions apply: An adult must stay with you the whole time you are here and drive you home. An adult must stay with you at home for 24 hours due to Anesthesia. If you have LUPE, you are required to stay 3 hours after your surgery before we can discharge you. documented in this encounter [facility] 04-20-2022 Procedure note Denies need to void. Pad beneath pt dry. [facility] 04-20-2022 Procedure note Denies need to void. 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 PROCEDURE: Left knee arthrotomy, excision of hardware from the patella, lateral retinacular release, proximal realignment of the extensor mechanism. SURGEON: Calos Smith MD [employer] WORKER: Jelani Burgos PA-C. Mr. Burgos was required [...] cleared by general medical consultants, admitted to [facility], evaluated by the anesthesia team. She is [...] 04/20/2022 15:47:00 LEANN/ROCIO documented in this encounter [facility] 04-20-2022 Consult note Associated Order (s): IP [...] found for this or any previous visit. [facility] 04-20-2022 Consult note Associated Order (s): IP [...] any previous visit. documented in this encounter [facility] 04-20-2022 Procedure note All medications administered per Whitley Kelley SN witnessed by myself. [facility] 04-20-[address] Smith notified of patient reporting history of MRSA a couple years ago, has an allergy to Vancomycin and Ancef, currently has Clindamycin ordered. No new orders. [facility] 04-20-2022 History and physical note History and Physical Update ( H&P completed within the previous thirty days ) I personally reviewed the History and Physical, interviewed and examined the patient prior to surgery. No changes have occurred in the patient's condition since the History and Physical was completed. [facility] 04-20-2022 History and physical note History and Physical Update ( H&P completed within the previous thirty days ) I personally reviewed the History and Physical, interviewed and examined the patient prior to surgery. No changes have occurred in the patient's condition since the History and Physical was completed. 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 PROCEDURE: Left knee arthrotomy, excision of hardware from the patella, lateral retinacular release, proximal realignment of the extensor mechanism. SURGEON: Calos Smith MD WELL SERVICE DERRICK WORKER: Jelani Burgos PA-C. Mr. Burgos was required [...] cleared by general medical consultants, admitted [facility], evaluated by the anesthesia team. She is [...] CALOS SMITH MD TT: 04/20/2022 15:47:00 LEANN/ROCIO [facility] 01-06-2022 History of Present illness Narrative All discharge criteria for discharge to home met, medically & surgically. BP u to WNL, tolerating up to bathroom w/o dizziness, lighthedeness. Report called to [phone], station 2 questions answered. Notified Metoprolol and imdur held prior to discharge. Verbalized understanding. Plasma Flow activated for transport to [facility]. Per brother. Chemical ice packs for comfort promotion. Spoek with patient and her brother will be here between 9and 10am to transport to [facility]. Faxed HENS Rx' surgeon instruction sheets and AVS to [facility] at [phone]. Dischareg folder to nursing for discharge to [facility]. Rx's in folder for tramadol Oxycodone valium gabapentin restoril Surgeon instruction sheets AVS Transfer Summary Number for report to RN [phone] station 2 [facility] - [facility]ESS [...] mid left lung, likely atelectasis or scarring. Donna thanks you for the opportunity to care for your patient. Workstation ID: [id number] - [id number] Dictated By: Garo Albarado MD 01/04/2021 11:41 Assigned Physician: Garo Albarado MD Reviewed and Electronically Signed By: Garo Albarado MD 01/04/2021 11:45 Transcribed by: STEW 01/04/2021 11:41 Technologist: ESTIMATOR PRINTING PLATE MAKING STRESS TEST No results found for this [...] 3 Days Post-Op: Right total knee arthroplasty 82970 - MO ARTHROPLASTY KNEE CONDYLE&PLATEAU MED/LAT CPTS W/WO PATELLA [...] Post-Op status post Right total knee arthroplasty 48481 - MO ARTHROPLASTY KNEE CONDYLE&PLATEAU MED/LAT CPTS W/WO PATELLA [...] to discharge to an impatient unit or detention facility. [facility]) Orthopaedic Surgery Progress Note 2 Days Post-Op: Right total knee arthroplasty 10818 - MO ARTHROPLASTY KNEE CONDYLE&PLATEAU MED/LAT CPTS W/WO PATELLA [...] Post-Op status post Right total knee arthroplasty 99893 - MO ARTHROPLASTY KNEE CONDYLE&PLATEAU MED/LAT CPTS W/WO PATELLA RESURFACING . - WBAT on the operative extremity - home coumadin, continue lovenox bridge, INR yesterday 0.9 for DVT ppx - PT - Follow-up in clinic in 6 weeks - Plan for discharge to Subacute Rehab Facility ([facility] or [facility]) when cleared by PT and medically stable Spoke to the patient and she called her brother who will be her transport and he wants to leave here by 0900am. Reached out to [facility] to complete Rx's for home meds. Pt sleeping soundly and did not rouse to name of knock. Will attempt again in am. Message left for Admissions Christy at [facility] cell [phone] and office [phone] [facility] Software Configuration Specialist provided Admissions cell of Christy [phone] Called her and she still does not have an answer from the admissions team and D.O.N. she will call when she knows. Physical Therapy Treatment PT Discharge Recommendations: custodial facility placement, Inpatient rehab facility placement Distance [...] Subjective Pt agreeable to treatment. Requesting this DREDGE LEVER OPERATOR move her LEs out of the bed. Education and instruction provided. Requesting bathroom urgently. Mobility noted below. At end of treatment pt sitting in chair awaiting lunch. Continue to follow until pt is d/c from [facility]. Vitals/Pain Pain Assessment Pain Assessment: 0-10 Pain [...] PT Plan: Skilled PT PT Discharge Recommendations: custodial facility placement, Inpatient rehab facility placement Goals: [...] plan to SNF. Awaiting to hear from [facility] for acceptance. Discussed transportation and her brother can transport. Encouraged IS as patient still needs to wean from oxygen. Message left for Admissions at [facility]. [phone] to see if they can accept. GENERAL [...] 7 days Lab Units 01/05/22 0353 01/04/22 0457 HEMOGLOBIN g/dL 10.7* 10.8* HEMATOCRIT % 35.6 [...] to discharge to an inpatient unit or detention facility. NN met with the pt at bedside. Pt would like a referral sent to [facility]. She will continue to review the list for choices 2 and 3 in the event [facility] cannot accept. Referral sent via [facility] Fax. 01/04/22 1531 Clinical Encounter Type Visited With Patient Time Spent 20 Minutes Type of Contact Introduction SPIRITUAL CARE ASSESSMENT Spiritual Care Assessment: Pt appropriate and coping peaceful and positive calderon and family are supportive Spiritual Intervention: Active listening Discuss coping style Hospitality provided [place] given Outcome: Pt shared feelings and values expressed gratitude Plan: PC will return at pt/family request. CM received IB call from Cori with [facility]. They do not have bed availability for patient until at least next Sunday. CM will print Medicare SNF list and provide to patient for subsequent choices. Physical Therapy Treatment PT Discharge Recommendations: custodial facility placement, Inpatient rehab facility placement Distance [...] completed with mod/max assist. Mobility noted below. [place] pillow placed at right foot to assist in pt right LE positioning as pt position of comfort is with external rotation and knee slightly bent. Education provided. Continue as per PT POC until pt is d/c from [facility]. Vitals/Pain Pain Assessment Pain Assessment: 0-10 Pain [...] PT Plan: Skilled PT PT Discharge Recommendations: custodial facility placement, Inpatient rehab facility placement Goals: [...] comments found. Voice message left for Cori [phone] [facility]. NN inquiring about the status of referral. CM phone number provided for a return call. Physical Therapy Treatment PT Discharge Recommendations: Inpatient rehab facility placement, custodial facility placement Distance Ambulated (ft): 30 Device: [...] PT Discharge Recommendations: Inpatient rehab facility placement, custodial facility placement Goals: Encounter Problems Encounter Problems [...] 11:45 Transcribed by: STEW 01/04/2021 11:41 Technologist: ESTIMATOR PRINTING PLATE MAKING STRESS TEST No results found for this [...] 1 Day Post-Op: Right total knee arthroplasty 52342 - MO ARTHROPLASTY KNEE CONDYLE&PLATEAU MED/LAT CPTS W/WO PATELLA [...] Post-Op status post Right total knee arthroplasty 26093 - MO ARTHROPLASTY KNEE CONDYLE&PLATEAU MED/LAT CPTS W/WO PATELLA [...] tomorrow to acquire update of needed. # [phone] PT note is in and this CM faxed the referral to the requested IPR for review Physical Therapy Physical Therapy Evaluation PT Discharge Recommendations: custodial facility placement Distance Ambulated (ft): 30 Device: [...] R knee. Pt. Plans to discharge to [facility] as lives alone. Pt. Has 5 steps charity. Rails to enter home. Continue PT tx. Per POC. Patient Active Problem List Diagnosis Pain management Unilateral primary osteoarthritis, right knee S/P TKR (total knee replacement), right Past Medical History: Diagnosis Date Anxiety Arthritis COPD (chronic obstructive pulmonary disease) ([facility]) Hypertension Pulmonary embolism ([facility]) Wears dentures Wears glasses Past Surgical History: [...] Level of Function: Prior Function Level of Stokes: Independent with mobility and functional transfers Receives [...] 1-2 times per day PT Discharge Recommendations: custodial facility placement PT - Evaluation Status: Complete [...] transitioning home alone. Patient has requested [facility]. Patient states her brother will plan to provide transportation at time of discharge. CM was able to reach the admissions dept and the facility is an IPR, no swing bed/ TCU unit at this facility. Patient with multiple co morbidities and this CM will fax the referral for review to [phone] for review. Patient was educated a SNF [...] 11:45 Transcribed by: STEW 01/04/2021 11:41 Technologist: ESTIMATOR PRINTING PLATE MAKING STRESS TEST No results found for this [...] Discharge Planning County Information County of Residence [place] Patient Information Accompanied by/Relationship telephone call Patient arrived from? Home Support System Extended family Referral To Financial Resources Other (Comment) (no needs identified) Community Resources Other (Comment) (no needs identified) Services Requested DME potential needs No Destination/Placement [facility] Rehab Potential Good CM made telephone call to patient preoperatively to complete initial assessment for discharge planning. Home address and PCP reviewed. Home assessment completed. Patient lives alone in a 1 story home, 5 steps/handrail to enter. Bathroom: tub shower, shower chair. DME reviewed, denies need. Plan: discharge to [facility], brother to provide transportation. Covid testing education provided, patient will schedule. All questions/concerns addressed. documented in this encounter [facility] 01-05-2022 Hospital course Narrative Prescriptions for discharge [...] clinic regarding Labs and lovenox bridge. SNF METAL SOLDERER TO HELP MANAGE TO THERAPEUTIC LEVEL -Plasma [...] prior to your surgery. Check in at medical office receptionist desk [address], [place] [address]. Medication instructions per [facility] recc If Outpatient, these additional instructions apply: An adult must stay with you the whole time you are here and drive you home. An adult must stay with you at home for 24 hours due to Anesthesia. If you have LUPE, you are required to stay 3 hours after your surgery before we can discharge you. documented in this encounter [facility] 01-03-2022 Procedure note Family updated per phone. [facility] 01-03-2022 Procedure note Family updated per phone. Trinity Godinez 1955 ? Retention: Exchange Retention Policy (10 years) Expires: Sun01/01/2032 10:37 AM Retention: Exchange Retention Policy (10 years) Expires: Sun01/01/2032 10:37 AM [email or web address] EXTERNAL CAUTION: This email originated from outside the organization. Do not click links or open any attachments unless you recognize the sender and know the content is safe. If you believe this is spam, forward the message to [email or web address]. - [facility], A Member of [facility] OPERATIVE REPORT PATIENT NAME: Trinity Godinez DATE OF : 1955 [facility]#: [id number] SURGEON: Calos Smith MD, FACS DATE OF SERVICE: 01/03/2022 DATE OF SURGERY: 01/03/2022 PREOPERATIVE DIAGNOSIS: OA right knee (M17.11) POSTOPERATIVE DIAGNOSIS: OA right knee (M17.11) PROCEDURE: Primary Right Total Knee Arthroplasty (56621) Femoral Component: Heidi Biomet Vanguard Cruciate Retaining , Size: 62.5mm Tibial Component: Biomet Fixed I-Beam Stem Tibial Tray 75mm Patella Component: Biomet Series A Standard Patella , 31mm Polyethylene: Vanguard ArCom anterior stabilized 12mm Fixation: Biomet Bone Cement with 1g Vancomycin ATTENDING SURGEON: Calos Smith MD, FACS WELL SERVICE DERRICK WORKER: STEPHAN Diane DO INDICATIONS: Patient is a [...] awake, alert, and stable in good condition. WELL SERVICE DERRICK WORKER/ATTENDING PARTICIPATION: STEPHAN Diane DO assisted with proper [...] Calos Smith MD, FACS on 01/03/2022 10:28:[address] [facility], A Member of [facility] OPERATIVE REPORT PATIENT NAME: Trinity Godinze DATE OF : 1955 [facility]#: [id number] SURGEON: Calos Smith MD, FACS DATE OF SERVICE: 01/03/2022 DATE OF SURGERY: 01/03/2022 REF [id number] LOT [id number] Vanguard Knee System 62.5 MM Uncoated knee femur prosthesis, metallic Use By 2031-11-13 () [id number] () [id number] (10) [id number] REF [id number] LOT [id number] Biomet Knee System 75 mm Uncoated knee tibia prosthesis, metallic Use By 2031-10-11 () [id number] (17 [id number] (10) [id number] REF [id number] LOT [id number] Vanguard Knee System 31 mm 8 mm Polyethylene patella prosthesis Use By 2026-10-10 () [id number] (91) 343798 (55) [id number] REF [id number] LOT [id number] Vanguard Knee System 12 MM 75 MM Tibial insert Use By 2026-12-22 () [id number] (04) [id number] (50) [id number] documented in this encounter [facility] 01-03-2022 Procedure note Trinity Godinez 1955 ? Retention: Exchange Retention Policy (10 years) Expires: Sun01/01/2032 10:37 AM Retention: Exchange Retention Policy (10 years) Expires: Sun01/01/2032 10:37 AM [email or web address] EXTERNAL CAUTION: This email originated from outside the organization. Do not click links or open any attachments unless you recognize the sender and know the content is safe. If you believe this is spam, forward the message to [email or web address]. - [facility], A Member of [facility] OPERATIVE REPORT PATIENT NAME: Trinity Godinez DATE OF : 1955 [facility]#: [id number] SURGEON: Calos Smith MD, FACS DATE OF SERVICE: 01/03/2022 DATE OF SURGERY: 01/03/2022 PREOPERATIVE DIAGNOSIS: OA right knee (M17.11) POSTOPERATIVE DIAGNOSIS: OA right knee (M17.11) PROCEDURE: Primary Right Total Knee Arthroplasty (53128) Femoral Component: Heidi Biomet Vanguard Cruciate Retaining , Size: 62.5mm Tibial Component: Biomet Fixed I-Beam Stem Tibial Tray 75mm Patella Component: Biomet Series A Standard Patella , 31mm Polyethylene: Vanguard ArCom anterior stabilized 12mm Fixation: Biomet Bone Cement with 1g Vancomycin ATTENDING SURGEON: Calos Smith MD, FACS WELL SERVICE DERRICK WORKER: STEPHAN Diane DO INDICATIONS: Patient is a [...] awake, alert, and stable in good condition. WELL SERVICE DERRICK WORKER/ATTENDING PARTICIPATION: STEPHAN Diane DO assisted with proper [...] Calos Smith MD, FACS on 01/03/2022 10:28:[address] [facility], A Member of [facility] OPERATIVE REPORT PATIENT NAME: Trinity Godinez DATE OF : 1955 [facility]#: [id number] SURGEON: Calos Smith MD, FACS DATE OF SERVICE: 01/03/2022 DATE OF SURGERY: 01/03/2022 REF [id number] LOT [id number] Vanguard Knee System 62.5 MM Uncoated knee femur prosthesis, metallic Use By 2031-11-13 () [id number] ( 397539 (36) [id number] REF 011089 LOT [id number] Biomet Knee System 75 mm Uncoated knee tibia prosthesis, metallic Use By 2031-10-11 () [id number] (86) [id number] (10) [id number] REF [id number] LOT [id number] Vanguard Knee System 31 mm 8 mm Polyethylene patella prosthesis Use By 2026-10-10 () [id number] (71) 376336 (25) [id number] REF 025722 LOT [id number] Vanguard Knee System 12 MM 75 MM Tibial insert Use By 2026-12-22 () [id number] (65) 288094 (41) [id number] [facility] 01-03-2022 History and physical note History and Physical Update ( H&P completed within the previous thirty days ) I personally reviewed the History and Physical, interviewed and examined the patient prior to surgery. No changes have occurred in the patient's condition since the History and Physical was completed. [facility] 01-03-2022 History and physical note History and Physical Update ( H&P completed within the previous thirty days ) I personally reviewed the History and Physical, interviewed and examined the patient prior to surgery. No changes have occurred in the patient's condition since the History and Physical was completed. documented in this encounter [facility] 10-23-2021 Note PROCEDURE: XR KNEE R T 4V or > HISTORY: Pain of right knee joint , chronic COMPARISON: XR knee right 06/20/2020 FINDINGS: BONES:Narrowing of all 3 joint spaces, greatest involving the anterior compartment. Irregular sclerosis of the tibial plateau suggesting possible csvq-aj-yoqe contact and weightbearing. SOFT TISSUES:No visible soft [...] authenticated by: GARO CASILLAS Date: 2021-10-23 07:14 [facility] 01-08-2021 Physician Hospital Discharge summary ATTENTION: CUTOVER PATIENT Please Note: This patient was being treated during the EHR conversion from [facility] to [facility] on 01/08/2021 There are two medical records for this patient; one in [facility] and one in [facility]. To see the remainder of the medical record, refer to the [facility] medical record. If you have questions, please contact the Health Information Management Department Patient Name: TRINITY GODINEZ Patient [facility] 01-08-2021 History of Present illness Narrative Faxed orders to [facility] AT [phone] Discharge fodler to nursing for discharge to [facility]. Rx in folder tylenol tramadol oxycodone. Physical Therapy Physical Therapy Treatment Subjective: Pt declined to participate in PT treatment this afternoon, pt stated she would like to rest. Will continue to follow for skilled PT until D/C from [facility]. Problem: Mobility Goal: Patient will [...] from stand Outcome: Progressing Message left for [facility] to see when they can accept the patient Spoke to Delroy at [facility] she does not want the patient to discharge uptil after 1500. Spoke with patient and Granddaughter is planning to be here at that time anyways. Instructed to take the Discharge folder to [facility] and give the entire folder [...] Assist Outcomes Date/Time User Outcome 01/08/21 1206 Yduith Reynolds PT Progressing Encounter Problems (Resolved) There are no resolved problems. Education Documentation No documentation found. Education Comments No comments found. Rounded with Kd Storc INR 1.5 continue warfarin tolerating percocet no chnges to discharge pain Rx Dr hicks following PICC line and IV antibiotics PT progress reviewed WBAT Knee Immobilizer when up. May discharge to [facility] if OK with Gen Med [...] Immobilizer with out-of-bed. Discharge Plan: today to [facility]. LOS: 5 days VALARIE Gan Date: 01/08/2021 Time: 9:48 AM EDT [facility] - PROGRESS NOTE Patient Name : Trinity Godniez Patient : 1955 Patient Admit Date : [...] will need to follow-up with her surveillance physician/blending plant operator post discharge Acute Post Hemorrhagic Anemia (D62) [...] for: [facility] documented in this encounter [facility] 01-08-2021 Hospital course Narrative Patient will need an INR checked within 3 days of discharge to ECF for warfarin management to be monitored by ECF physician. Also needs outpatient follow-up with nephrology for monitoring of kidney function. Please follow-up with your blending plant operator for ongoing surveillance of your kidney function. You should have an INR checked within 3 days of discharge to [facility] for management of your warfarin. documented in this encounter [facility] 01-08-2021 Hospital Discharge instructions Marsha Doan RN [...] alcohol or with certain drugs. This includes ebdy-fuo-gjbnmpf medicines. Make sure your doctor knows about [...] Where can you learn more? Go to [email or web address] chart Enter P175 in the search box to learn more about Learning About Managing Acute Pain at Home. Current as of: July 08, 2020 Content Version: 13.0 [employer]. Care instructions adapted under license by your healthcare professional. If you have questions about a medical condition or this instruction, always ask your healthcare professional. [employer] disclaims any warranty or liability for your [...] Where can you learn more? Go to [email or web address] chart Enter A180 in the search box to learn more about Learning About Opioids and Acute Pain. Current as of: July 08, 2020 Content Version: 13.0 [employer]. Care instructions adapted under license by your healthcare professional. If you have questions about a medical condition or this instruction, always ask your healthcare professional. [employer] disclaims any warranty or liability for your use of this information. The following attachments cannot be sent through Care Everywhere.Incentive Spirometer: General Info (Niuean)Constipation (Niuean)DVT (Deep Vein Thrombosis): General Info (Niuean)Fall Prevention (Niuean)Opioids: General Info (Niuean)documented in this encounter [facility] 01-07-2021 Hospital Progress note Patient: TRINITY GODINEZ MRN: [id number] Age: 65 years Sex: Female : 1955 Associated Diagnoses: None Author: Rogelio Leyva MD Assessment Assessment Diagnosis: Primary osteoarthritis of left knee (SEN59-NI M17.12, Working, Medical), Unilateral primary osteoarthritis, left [...] will need to follow-up with her surveillance physician/blending plant operator post discharge Acute Post Hemorrhagic Anemia (D62) [...] Supervising Physician Comments (more content not included)... [facility] 01-07-2021 Note ID NOW COVID-19_Abbo tt Diagnostics [employer]. [facility] 01-07-2021 Hospital Progress note Patient: TRINITY GODINEZ MRN: ([id number] Age: 65 years Sex: Female : 1955 Associated Diagnoses: None Author: Shailesh VEGA , Grabiel Mcaiel Assessment 1. Knee: Status post reinsertion of [...] (01/05 05:) POSITIVE (01/05 05:) Unit # [id number] (01/05 10:56) [id number] (01/05 10:56) List of X-rays performed in last 36 hours No X-rays charted within the last 36 hours I have reviewed the available microbiologic data available at the time (more content not included)... [facility] 01-06-2021 Hospital Progress note Patient: TRINITY GODINEZ MRN: [id number] Age: 65 years Sex: Female : 1955 Associated Diagnoses: None Author: Rogelio Leyva MD Assessment Assessment Diagnosis: Primary osteoarthritis of left knee ([id number]-JN M17.12, Working, Medical), Unilateral primary osteoarthritis, left [...] as needed O2 at bedtime at the [facility]. Nocturnal/supine desaturation. History of congestive heart failure. [...] will need to follow-up with her surveillance physician/blending plant operator post discharge Acute Post Hemorrhagic Anemia (D62) -received 2 units of PRBCs for hemoglobin 6.8 on 01/05/2021. Hemoglobin 8.8 this morning adequate response. Tolerated transfusion well. No indication for additional transfusion. We will continue to monitor Hold discharge for today. Suspect would like to watch another 24 hours to make sure her renal function continues to improve. Probable plans for discharge to detention facility in the next 24 hours Supervising Physician Comments Documentation By: Consulting (more content not included)... [facility] 01-05-2021 Hospital Progress note Patient: TRINITY GODINEZ MRN: ([id number] Age: 65 years Sex: Female : 1955 Associated Diagnoses: None Author: Rogelio Leyva MD Assessment Assessment Diagnosis: Primary osteoarthritis of left knee (UAK64-QB M17.12, Working, Medical), Unilateral primary osteoarthritis, left [...] to renal issue (more content not included)... [facility] 01-05-2021 Hospital Progress note Patient: TRINITY GODINEZ MRN: [id number] Age: 65 years Sex: Female : 1955 [...] (01/03 10:05) NEGATIVE (01/03 10:05) Unit # [id number] (01/05 06:44) [id number] (01/05) List of X-rays performed in l (more content not included)... [facility] 01-04-2021 Surgery Surgical operation note DICTATED [...] restrictor on the femur. We used a Anmoore size D tibial cone. Fixation is Biomet bone cement mixed with 1 g vancomycin. This is the gentamicin laden Biomet cement mixed with 1 g vancomycin. SURGEON: Calos Smith MD WELL SERVICE DERRICK WORKER: MD Satish Cheng MD assisted with proper [...] cleared by General Medical consultants, [facility]. At this point, she was seen by [...] distally. We ap (more content not included)... [facility] 01-04-2021 Hospital Progress note Patient: TRINITY GODINEZ MRN: [id number] Age: 65 years Sex: Female : 1955 Associated Diagnoses: None Author: Rogelio Leyva MD Assessment Assessment Diagnosis: Primary osteoarthritis of left knee (VTW01-EQ M17.12, Working, Medical), Unspecified osteoarthritis, unspecified site [...] 3.9 cm. Patient (more content not included)... [facility] 01-03-2021 History and physical note Patient: TRINITY GODINEZ MRN: ([id number] Age: 65 years Sex: Female : 1955 Associated Diagnoses: None Author: Rogelio Leyva MD Impression Diagnosis Chronic osteoarthritis (MBX81-SN M19.90, 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 Plan Osteoarthritis Left Knee/left [...] as needed O2 at [facility]time at the [facility]. Nocturnal/supine desaturation. GERD - (K21.9) Chronic condition [...] will need to follow-up with her surveillance physician/blending plant operator post discharge Supervising Physician Comments Documentation By: [...] Dexamethasone 10 mg noted given Discussed with BUTTON DECORATING MACHINE OPERATOR Subjective: Rates pain currently -none currently early PACU No nausea, vomiting No Chest pain, sob Past Medical History CHF HTN COPD O2 prn-while in retirement, her O2 sat drops when laying down [...] Tendencies: Surgical/Procedure Hx Revision of knee arthroplasty ([id number]) on 01/03/2021 at 65 Years. Comments: 01/03/2021 13:17 NEIDA Hinson RN , Zoya Berrios Left knee reimplantation Debridement ([id number]) on 11/19/2020 at 65 Years. Comments: 11/19/2020 [...] CBC,SR,Creat,CRP, Vanco Trough, fax to Dr. Hicks [phone] 3)IV ATB UNTIL reimplant 4)Call Dr. Hicks [...] for More Detail Patient: TRINITY GODINEZ MRN: ([id number] Age: 65 years Sex: Female : 1955 Associated Diagnoses: None Author: Alicia Connell RN Impression Diagnosis Chronic osteoarthritis (LFE41-BF M19.90, 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 Plan Supervising Physician Comments Documentation By: Consulting Physician. Chief Complaint Postop Medical Co management History of Present Illness 65 y/o F who is S/P Left TK revision by Dr. Smith who requests post op medical management. Data obtained from pre op H&P. Past Medical History CHF HTN COPD O2 prn-while in retirement, her O2 sat drops when laying down [...] Bleeding Tendencies: Surgical/Procedure Hx Debridement (SNOMED CT [id number]) performed by Ming Quinn MD , Calos [...] CBC,SR,Creat,CRP, Vanco Trough, fax to Dr. Hicks [phone] 3)IV ATB UNTIL reimplant 4)Call Dr. Hicks [...] last 36 hours documented in this encounter [facility] 01-03-2021 Mycobacterium sp Org specific cx Ql (Unsp spec) [facility] Microbiology PROCEDURE: Culture AFB and Stain SOURCE: [...] CONTRIBUTOR_SYSTEM, CO_PN NO ACID FAST BACILLI SEEN [facility] Comment on above: Performed By: #### 5 0941-4 ####[address] 01-03-2021 Mycobacterium sp Org specific cx Ql (Unsp spec) [facility] Microbiology PROCEDURE: Culture AFB and Stain SOURCE: [...] CONTRIBUTOR_SYSTEM, CO_PN NO ACID FAST BACILLI SEEN [facility] Comment on above: Performed By: #### 5 0941-4 ####[address] 01-03-2021 Mycobacterium sp Org specific cx Ql (Unsp spec) [facility] Microbiology PROCEDURE: Culture AFB and Stain SOURCE: [...] CONTRIBUTOR_SYSTEM, CO_PN NO ACID FAST BACILLI SEEN [facility] Comment on above: Performed By: #### 5 0941-4 ####[address] 01-03-2021 Mycobacterium sp Org specific cx Ql (Unsp spec) [facility] Microbiology PROCEDURE: Culture AFB and Stain SOURCE: [...] CONTRIBUTOR_SYSTEM, CO_PN NO ACID FAST BACILLI SEEN [facility] Comment on above: Performed By: #### 5 0941-4 ####[address] 01-03-2021 Bacteria identified Sterile body fluid culture Nom (Unsp spec) [facility] Microbiology PROCEDURE: Culture Body Fluid + Susceptibility [...] RARE POLYS No Epithelials NO ORGANISMS SEEN [facility] Comment on above: Performed By: #### 6 36-1 ####[address] 01-03-2021 Mycobacterium sp Org specific cx Ql (Unsp spec) [facility] Microbiology PROCEDURE: Culture AFB and Stain SOURCE: [...] CONTRIBUTOR_SYSTEM, CO_PN NO ACID FAST BACILLI SEEN [facility] Comment on above: Performed By: #### 5 0941-4 ####[address] 01-03-2021 Anesthesiology Preoperative evaluation and management note Patient: TRINITY GODINEZ MRN: ([id number] Age: 65 years Sex: Female : 1955 [...] Creat,CRP, Vanco Trough, fax to Dr. Hicks [phone])IV ATB UNTIL reimplant4)Call Dr. Hicks for F/C/S, N/V/D, rash, [phone])F/U with Dr Hicks in 4-5 weeks COMMENTS: [...] Yes. The p (more content not included)... [facility] 01-03-2021 Hospital Progress note Patient: TRINITY GODINEZ MRN: [id number] Age: 65 years Sex: Female : 1955 Associated Diagnoses: None Author: Pramod Paryr MD Comments [] Patient/surgeon request nerve block [...] intraneural local anesthetic injection throughout the procedure. [facility] 01-03-2021 Hospital Progress note Patient: TRINITY GODINEZ MRN: [id number] Age: 65 years Sex: Female : 1955 [...] intraneural local anesthetic injection throughout the procedure. [facility] 01-03-2021 Procedure note DICTATED BY: CALOS [...] restrictor on the femur. We used a Anmoore size D tibial cone. Fixation is Biomet bone cement mixed with 1 g vancomycin. This is the gentamicin laden Biomet cement mixed with 1 g vancomycin. SURGEON: Calos Smith MD WELL SERVICE DERRICK WORKER: MD Satish Cheng MD assisted with proper [...] cleared by General Medical consultants, admitted to [facility]. At this point, she was seen by [...] the tibia. We took our reamers from [employer] and created the cone for this enhanced [...] D/01/03/2021 16:37:19 T/01/03/2021 20:53:46 VOICE JOB ID: [id number] Ramy Santos thanks you for the opportunity to care for your patient. DID: [id number] documented in this encounter [facility] 11-23-2020 Surgery Surgical operation note DICTATED BY: [...] to proceed and she is admitted to [facility], evaluated by the anesthesiologist, adductor canal block [...] cement from t (more content not included)... [facility] 11-22-2020 Hospital Progress note Patient: RTINITY GODINEZ MRN: ([id number] [facility]: [id number] Age: 65 years Sex: Female : 1955 [...] N (11/22 13:) Device Identifier ID NOW COVID-19_[employer] EUA (11/22 13:) MPV 10.2 FL [...] Reactions (Selected) Sever (more content not included)... [facility] 11-22-2020 Hospital Progress note Patient: TRINITY GODINEZ MRN: [id number] Age: 65 years Sex: Female : 1955 Associated Diagnoses: None Author: Trey Martin MD Assessment Assessment Diagnosis: Osteoarthritis of left knee (VWO99-VY M17.9, 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 Plan A medical consult [...] 2 / l (more content not included)... [facility] 11-22-2020 Note ID NOW COVID-19_[employer] [facility] PETER [facility] 11-22-2020 Physician Hospital Discharge summary CLINICAL SUMMARY Please take this summary document to your follow up appointments. [facility] 11/22/20 14:48 [address] [facility], [place]. [address] PATIENT INFORMATION Name: TRINITY GODINEZ Address: [address] [place] [id number] Age: 65 Years Phone: [phone] : 1955 12:00 MRN: [id number] Sex: Female Race: White Ethnicity: Not Hispan/Lat Admitted From: Clinic or [facility] Medical Service: Orthopedic Surgery Nurse Unit/Bed: (VT) [facility] 0221-01 Admit Date: 11/19/2020 09:38 PCP: Levi Shine MD PHYSICIANS INVOLVED WITH CARE Attending Physicians: Ming Quinn MD , Calos - Orthopaedic Surg Admitting Physician: Ming Quinn MD , Calos - Orthopaedic Surg Primary Care Physician:Levi Shine MD,[facility], - Consults: Sahilesh VEGA , Grabiel Maciel - Infectious Disease [...] / RECOMMENDED TO BE CONTINUED for: TRINITY GODNIEZ aclidinium (Tudorza Pressair 400 mcg/inh inhalation powder) [...] CBC,SR,Creat,CRP, Vanco Trough, fax to Dr. Hicks [phone] 3)IV ATB UNTIL reimplant 4)Call Dr. Hicks [...] CBC,SR,Creat,CRP, Vanco Trough, fax to Dr. Hicks [phone] 3)IV ATB UNTIL reimplant 4)Call Dr. Hicks for F/C/S, N/V/D, rash, 5)F/U with Dr Hicks in 4-5 weeks. Refills: 0., Call Dr. Hicks if released from your facility before IV therapy completed; Notify Dr. Hicks if Patient is admitted to the hospital. Comment Freetext M (more content not included)... [facility] 11-21-2020 Hospital Progress note Patient: TRINITY GODINEZ MRN: ([id number] Age: 65 years Sex: Female : 1955 Associated Diagnoses: None Author: Shailesh VEGA , Grabiel Bhatia 1. Knee: Status post re-radical debridement. Intraoperative cultures presently pending. 2. History of infection: Trying to obtain culture reports from her Hospital in [place] from last January. 3. Disposition: Anticipate discharge [...] Q4h, PRN: Itching/Pruri (more content not included)... [facility] 11-21-2020 Hospital Progress note Patient: TRINITY GODINEZ MRN: [id number] Age: 65 years Sex: Female : 1955 Associated Diagnoses: None Author: Andrew VEGA , Jose Carrasco Supervising Physician Comments Documentation By: Consulting Physician. Assessment Assessment Diagnosis: Osteoarthritis (GTO79-LI M19.90, 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 Plan Failed left TKR [...] lab test) CHEMISTRY (more content not included)... [facility] 11-20-2020 Hospital Progress note Patient: TRINITY GODINEZ MRN: [id number] [facility]: [id number] Age: 65 years Sex: Female : 1955 Associated Diagnoses: None Author: Andrew VEGA , Jose Carrasco Supervising Physician Comments Documentation By: Consulting Physician. Assessment Assessment Diagnosis: Osteoarthritis (CEL44-BT M19.90, 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 Plan Failed left TKR [...] rounds 11/20. Continue to monitor on the MOLINE LUPE protocol. Obesity: BMI 33. follow per [...] 246 (11/20 04:2 (more content not included)... [facility] 11-19-2020 Hospital Progress note Patient: TRINITY GODINEZ MRN: ([id number] Age: 65 years Sex: Female : 1955 Associated Diagnoses: None Author: Montana Reynoso MD Assessment Assessment Diagnosis: Osteoarthritis (QXU45-CK M19.90, 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 Plan Failed left TKR [...] 16:24:17 See Radiology Report for More Detail [facility] 11-19-2020 Mycobacterium sp Org specific cx Ql (Unsp spec) [facility] Microbiology PROCEDURE: Culture AFB and Stain SOURCE: [...] CONTRIBUTOR_SYSTEM, CO_PN NO ACID FAST BACILLI SEEN [facility] Comment on above: Performed By: #### 5 0941-4 ####[address] 11-19-2020 Mycobacterium sp Org specific cx Ql (Unsp spec) [facility] Microbiology PROCEDURE: Culture AFB and Stain SOURCE: [...] CONTRIBUTOR_SYSTEM, CO_PN NO ACID FAST BACILLI SEEN [facility] Comment on above: Performed By: #### 5 0941-4 ####[address] 11-19-2020 Mycobacterium sp Org specific cx Ql (Unsp spec) [facility] Microbiology PROCEDURE: Culture AFB and Stain SOURCE: [...] CONTRIBUTOR_SYSTEM, CO_PN NO ACID FAST BACILLI SEEN [facility] Comment on above: Performed By: #### 5 0941-4 ####[address] 11-19-2020 Mycobacterium sp Org specific cx Ql (Unsp spec) [facility] Microbiology PROCEDURE: Culture AFB and Stain SOURCE: [...] CONTRIBUTOR_SYSTEM, CO_PN NO ACID FAST BACILLI SEEN [facility] Comment on above: Performed By: #### 5 0941-4 ####[address] 11-19-2020 Anesthesiology Preoperative evaluation and management note Patient: TRINITY GODINEZ MRN: ([id number] Age: 65 years Sex: Female : 1955 [...] 05:37:52 by Sarah BERMUDEZ , Ange Sloan [place] Medications: ascorbic acid 1,000 mg = 1 [...] mL, 1,000 m (more content not included)... [facility] 11-17-2020 Hospital Progress note Patient: TRINITY GODINEZ MRN: [id number] Age: 65 years Sex: Female : 1955 [...] intrathecal local anesthetic injection throughout the procedure. [facility] 11-17-2020 Anesthesiology Preoperative evaluation and management note Patient: TRINITY GODINEZ MRN: [id number] Age: 65 years Sex: Female : 1955 [...] 20 mL/hr, I (more content not included)... 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 * Acute Pain Management: General Info (Niuean) * Opioids: Safe Use (Niuean) * Fall Prevention (Niuean) * DVT (Deep Vein Thrombosis): Prevention: General Info (Niuean) * Constipation (Niuean) * Incentive Spirometer: General Info (Niuean) * warfarin (oral) (Niuean) * Enoxaparin (Lovenox) (Niuean) [facility] Attachments The following attachments cannot be sent through Care Everywhere. * DVT (Deep Vein Thrombosis): Prevention: General Info (Niuean) * Incentive Spirometer: General Info (Niuean) * Fall Prevention (Niuean) * Opioids: General Info (Niuean) * Constipation (Niuean) * warfarin (oral) (Niuean) * enoxaparin (Niuean) * Antibiotics: General Info (Niuean) [facility]* Auth/Cert Specialty Diagnoses / Procedures Referred By Mirella t Referred To Contact Diagnoses Unilateral primary osteoarthritis, right knee M17.11 Procedures MO ARTHROPLASTY KNEE CONDYLE&PLATEAU MED/LAT CPTS W/WO PATELLA RESURFACING MO ARTHROPLASTY KNEE CONDYLE&PLATEAU MED/LAT CPTS W/WO PATELLA RESURFACING Right total knee arthroplasty Calos Smith MD [address] [place] [address] Referral ID Status Reason Start Date Expiration Date Visits Re quested Visits Authorized [id number] 11/08/2021 1 1 [facility] for visit Narrative* Auth/Cert Specialty Diagnoses / Procedures Referred By Contac t Referred To Contact Diagnoses 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, initial encounter ([facility]) t84.093a Procedures MO RECONSTR DISLOCATING PATELLA W EXT REALIGNMENT AND/OR MUSCLE ADVMNT/RLS MO LATERAL RETINACULAR RELEASE OPEN Left knee extensor mechanism realignment with lateral retinacular release Calos Smith MD [address] [place] [address] [facility] [address] [place] [address] Referral ID Status Reason Start Date Expiration Date Visits Re quested Visits Authorized [id number] 1 1 [facility] Summary Purpose Family History No Family History [...] Findings Note Patient: TRINITY GODINEZ MRN : ([id number] Age: 65 years Sex: Female : 1955 [...] concluded. Note Patient: TRINITY GODINEZ MRN : ([id number] Age: 65 years Sex: Female : 1955 [...] section and content) DATE CREATED AUTHOR 11/28/2020 [facility] DATE CREATED AUTHOR AUTHOR'S ORGANIZ ATION 01/12/2021 [facility] DATE CREATED AUTHOR AUTHOR'S ORGANIZ ATION 03/04/2021 [facility] DATE CREATED AUTHOR AUTHOR'S ORGANIZ ATION 04/25/2021 [facility] DATE CREATED AUTHOR AUTHOR'S ORGANIZ ATION 04/30/2021 [facility] DATE CREATED AUTHOR AUTHOR'S ORGANIZ ATION 09/08/2022 [facility] DATE CREATED AUTHOR AUTHOR'S ORGANIZ ATION 02/21/2023 [facility] DATE CREATED AUTHOR AUTHOR'S ORGANIZ ATION 02/21/2023 [facility] Ordered Prescriptions (unrec ognized section and content) [...] Provider: Teresita Hirsch RN)2041 (Given - Provider: Rcihard Hernandez RN) 1017 (Given - Provider: Kym [...] Nixon RN) 0054 (Given - Provider: Fadumo Ptitman, AIDAN) diphenhydrAMINE (BENADRYL) injection 25 mg 25 [...] Fadumo Pittman RN)1045 (See Alternative - Provider: Tarcy Agudelo RN) oxyCODONE (ROXICODONE) immediate release tablet [...] Care Teams (unrecognized sec tion and content) Duct Maker Relationship Specialty Start Date End Date Levi Shine MD [address] [place] [address] PCP - General 11/22/20 Duct Maker Relationship Specialty Start Date End Date Levi Shine MD [address] [place] [address] PCP - General 11/22/20 Duct Maker Relationship Specialty Start Date End Date Levi Shine MD [address] [place] [address] PCP - General 11/22/20 FOR RECORDS PERTAINING [...] BE BASED ON THE PRIMARY CLINICAL RECORDS. [facility]. provides no warranty or guarantee of the accuracy or completeness of information in this document.
--- NOTE | 2023-04-28 16:20 | P.HP_ITS ---
H&P: HPI History of Present Illness Chief complaint: CONFUSION Narrative: patient is a 67-year-old female with past medical history of recent left rib fractures after fall, hypertension, seasonal ALLERGIES. Presented to ER with confusion, and possible taking too medication. Patient feels confused and s ays she is. Not sure what medication she took or how much. New medication of Baclofen in combination of Gabapentin and Opiates. She has never had CVA or Acute stroke before. No weakness of extremities. Only complaint is she feels confused and her left side rib cage hurts. Review of Systems ROS Narrative ROS: a complete review of systems were reviewed with patient and are positive as below or listed in History of Chief Complaint. General: no fever, chills, night sweats Head: no headache, trauma, visual changes, nausea or vomiting Skin: no reported rashes, itching or sores Eyes: no blurriness of vision Ears: no reported hearing loss, vertigo, earache, or tinnitus Throat: no sore throat, hoarseness, swelling of neck, or tongue pain Heart: no chest pain Lungs: no shortness of breath or cough GI: no diarrhea or vomiting/nausea Urinary: no urinary urgency, frequency or pain Neuro: no numbness or tingling HEM: no bleeding issues or bruising ENDO: no thyroid problems Psych: no anxiety or depression PFSH PFSH Medical History GERD (gastroesophageal reflux disease) ?K21.9 - Gastro-esophageal reflux disease without esophagitis (ICD-10) Anxiety ?F41.9 - Anxiety disorder, unspecified (ICD-10) Seasonal allergies ?J30.2 - Other seasonal allergic rhinitis (ICD-10) Bronchitis ?J40 - Bronchitis, not specified as acute or chronic (ICD-10) COPD (chronic obstructive pulmonary disease) ?J44.9 - Chronic obstructive pulmonary disease, unspecified (ICD-10) Hypertension ?I10 - Essential (primary) hypertension (ICD-10) Surgical History History of appendectomy ?Z90.49 - Acquired absence of other specified parts of digestive tract (ICD- 10) History of hysterectomy ?Z90.710 - Acquired absence of both cervix and uterus (ICD-10) History of left hip replacement ?Z96.642 - Presence of left artificial hip joint (ICD-10) History of right hip replacement ?Z96.641 - Presence of right artificial hip joint (ICD-10) History of total right knee replacement ?Z96.651 - Presence of right artificial knee joint (ICD-10) History of left knee replacement ?Z96.652 - Presence of left artificial knee joint (ICD-10) Family History Mother Family history of CHF (congestive heart failure) Family history of cancer Family history of diabetes mellitus Family history of hypertension Family history of myocardial infarction Brother Family history of cancer Family history of hypertension Social History Within the past year, how often did you have a drink containing alcohol: never Score interpretation: A score less than 3 is consistent with normal alcohol consumption. Smoking status: Light tobacco smoker Non-prescribed substance use: denies use Previous occupational history: disabled Highest level of school completed/degree received: some college, no degree Are you now , , , , never or living with a partner: Little interest or pleasure in doing things: not at all Feeling down, depressed, or hopeless: not at all Feel stressed/tense/nervous/anxious/difficulty sleeping: only a little Meds Home Medications and Allergies Home Medications Medication Instructions Recorded Confirmed Type albuterol sulfate 90 mcg/actuation 2 inh inhalation Q6H PRN shortness 09/26/22 04/28/23 History aerosol inhaler of breath or wheezing cetirizine 10 mg tablet 10 mg PO DAILY 09/26/22 04/28/23 History gabapentin 600 mg tablet 1,200 mg PO .qhs 09/26/22 04/28/23 History isosorbide mononitrate 60 mg 60 mg PO .q24 09/26/22 04/28/23 History tablet,extended release 24 hr metoclopramide HCl 10 mg tablet 10 mg PO .COMPLEX 09/26/22 04/28/23 History metoprolol succinate 100 mg 100 mg PO Q12H 09/26/22 04/28/23 History tablet,extended release 24 hr pantoprazole 40 mg tablet,delayed 40 mg PO DAILY 09/26/22 04/28/23 History release potassium chloride 10 mEq 10 meq PO BID 09/26/22 04/28/23 History tablet,extended release(part/cryst) quetiapine 50 mg tablet 50 mg PO .qhs 09/26/22 04/28/23 History tizanidine 4 mg tablet 4 mg PO Q12H PRN muscle spasticity 09/26/22 04/28/23 History hydrocodone 5 mg-acetaminophen 325 1 tab PO Q6H 04/02/23 04/28/23 History mg tablet baclofen 20 mg tablet 20 mg PO Q12H 04/28/23 04/28/23 History gabapentin 600 mg tablet 600 mg PO QAM 04/28/23 04/28/23 History Allergies Allergy/AdvReac Type Severity Reaction Status Date / Time NSAIDS (Non-Steroidal Allergy Severe Anaphylaxis Verified 09/26/22 20:11 Anti-Inflamma vancomycin Allergy Verified 09/26/22 20:11 morphine AdvReac Intermediate Verified 04/02/23 14:55 Exam Narrative Exam Narrative: General: Patient is alert, and oriented to place, not or time with normal affect, proper hygiene Skin: no visible rashes, or ulcers Head: atraumatic, acephalic Eyes: PERRLA, no nystagmus present, conjunctiva clear, no scleral icterus Ears: normal gross auditory acuity Heart: Normal rate and rhythm, no murmurs/rubs/gallops Lungs: no audible wheezes, crackles and normal breath sounds all lung stokes Abdomen: Normal audible bowel sounds, no distension, No palpable masses, no organomegaly, no rebound/guarding/ or rigidity Musculoskeletal: no swelling bilateral lower extremities Neuro: CN II-X grossly intact, normal sensation upper and lower extremities Constitutional Vital Signs, click to edit/add: Last Vital Signs Temp 98.4 F 04/28/23 13:44 Pulse 102 H 04/28/23 15:30 Resp 25 H 04/28/23 15:30 BP 168/92 H 04/28/23 15:30 Pulse Ox 95 04/28/23 15:30 O2 Del Method Room Air 04/28/23 13:44 Results Labs Labs: Short CBC 04/28/23 Range/Units 14:00 WBC 8.4 (4.0-11.0) 10^3/uL Hgb 13.2 (12.0-16.0) g/dL Hct 41.5 (36.0-48.0) % Plt Count 281 (150-450) 10^3/uL BMP 04/28/23 14:00 Sodium 141 Potassium 4.1 Chloride 108 H Carbon Dioxide 20.4 L BUN 27.0 H Creatinine 1.09 H Glucose 108 H Calcium 9.5 Urine 04/28/23 Range/Units 14:41 Urine Color Lt. yellow (YELLOW) Urine Clarity Clear (CLEAR) Urine pH 5.5 (5.0-9.0) Ur Specific [place] 1.025 (1.005-1.025) Urine Protein 30 A (NEG/TRACE) mg/dL Urine Glucose (UA) Negative (NEGATIVE) mg/dL Assessment and Plan Assessment and Plan (1) Altered mental status: Assessment and Plan: polypharmacy, reaction to medication? ct of the brain negative. Will check MRI tomorrow. will hold gabapentin and baclofen. Neuro exam normal except orientation Qualifiers: Altered mental status type: transient alteration of awareness Qualified Code(s): R40.4 - Transient alteration of awareness (2) Medication side effect: Assessment and Plan: causing #1 (3) Contusion of left chest wall: Assessment and Plan: [place] as needed from rib fractures causing pain. Qualifiers: Encounter type: subsequent encounter Qualified Code(s): S20.212D - Contusion of left front wall of thorax, subsequent encounter (4) Anxiety: Assessment and Plan: continue quetiapine (5) Hypertension: Assessment and Plan: continue metoprolol, isosorbide Qualifiers: Hypertension type: primary hypertension Qualified Code(s): I10 - E ssential (primary) hypertension (6) GERD (gastroesophageal reflux disease): Assessment and Plan: continue protonix Qualifiers: Esophagitis presence: esophagitis presence not specified Qualified Code(s): K21.9 - Gastro-esophageal reflux disease without esophagitis Plan patient is a full code will provide some IVF, and hold insulting medications, MRI of the brain tomorrow, on tele [employer] for DVT prophylaxis patient is in observation status and is not expected to stay 2 midnights. Urinary Catheter Management Urinary Catheter Management Straight: Cath placed during this visit: yes Urethral indwelling: No Insertion date: 04/28/23 Insertion time: 14:50
[2023-04-28] MEDS: METOCLOPRAMIDE HCL 10 MG TABLET PO (17:13)
[2023-04-28] MEDS: LACTATED RINGER'S SOLUTION 1,000 ML 50 ML IV (17:13)
[2023-04-28] MEDS: ENOXAPARIN SODIUM 40 MG/0.4 ML SYRINGE SUBQ (17:13)
[2023-04-28] MEDS: METOPROLOL SUCCINATE 100 MG TAB.ER.24H PO (17:13)
[2023-04-28] MEDS: HYDROCODONE/ACET 5-325 MG TABLET 1 TAB PO ×2 (18:13→23:41)
--- NOTE | 2023-04-28 20:14 | PC.NURSE ---
pt unable to speak words. She is able to communicate by writing on a whiteboard. Pt writes that she knows what she wants to say, but is not able to speak the words.
[2023-04-28] MEDS: POTASSIUM CHLORIDE 10 MEQ ER TABLET PO (21:08)
[2023-04-28] MEDS: QUETIAPINE FUMARATE 25 MG TABLET 50 MG PO (21:08)
[2023-04-28] MEDS: ACETAMINOPHEN 325 MG TABLET 650 MG PO (21:08)
[2023-04-29] VITALS (18 sets, daily range): BP systolic 137–165; BP diastolic 74–78; PULSE 77–98; RESP 16–18; TEMP 36.6–36.8; O2SAT 91–95
[2023-04-29] MEDS: METOPROLOL SUCCINATE 100 MG TAB.ER.24H PO ×2 (04:22→20:50)
[2023-04-29] MEDS: HYDROCODONE/ACET 5-325 MG TABLET 1 TAB PO (04:22)
[2023-04-29 05:04] LABS: Basophils Absolute Auto 0.1 10^3/uL (0.0-0.1); Basophils Percent Auto 1.3 % (0.2-2.0); Eosinophils Absolute Auto 0.2 10^3/uL (0.0-0.7); Eosinophils Percent Auto 2.7 % (0.9-7.0); Hematocrit 37.6 % (36.0-48.0); Hemoglobin 11.9 g/dL (12.0-16.0); Immature Granulocytes Abs Auto 0.03 10^3/uL (0.00-0.03); Immature Granulocytes Pct Auto 0.4 % (0.0-0.5); Lymphocytes Absolute Auto 2.6 10^3/uL (1.2-3.8); Lymphocytes Percent Auto 33.9 % (20.5-60.0); Mean Corpuscular HGB Conc 31.6 g/dL (29.9-35.2); Mean Corpuscular Hemoglobin 31.3 pg (26.7-34.0); Mean Corpuscular Volume 98.9 fL (81.0-99.0); Mean Platelet Volume 11.3 fL (9.5-13.5); Monocytes Absolute Auto 0.9 10^3/uL (0.3-0.8); Monocytes Percent Auto 11.3 % (1.7-12.0); Neutrophils Absolute Auto 3.9 10^3/uL (1.4-6.5); Neutrophils Percent Auto 50.4 % (43.0-75.0); Platelet Count 242 10^3/uL (150-450); Red Cell Distribution Width 14.6 % (11.0-15.0); White Blood Count 7.8 10^3/uL (4.0-11.0)
[2023-04-29 05:26] LABS: Alanine Aminotransferase 15 U/L (14-59); Albumin Globulin Ratio 0.8; Albumin Level 3.1 g/dL (3.4-5.0); Alkaline Phosphatase 121 U/L (46-116); Aspartate Amino Transferase 20 U/L (15-37); BUN Creatinine Ratio 28.9; Bilirubin Total 0.6 mg/dL (0.2-1.0); Calcium 8.9 mg/dL (8.5-10.1); Carbon Dioxide 22.7 mmol/L (21.0-32.0); Chloride 105 mmol/L (98-107); Estimated GFR (African America >60 (>=60); Estimated GFR (Non-African Ame 58 (>=60); Globulin 3.7 g/dL; Glucose 98 mg/dL (74-106); Magnesium 1.8 mg/dL (1.8-2.4); Potassium 3.7 mmol/L (3.5-5.1); Sodium 137 mmol/L (136-145); Thyroid Stimulating Hormone 0.271 uIU/mL (0.358-3.740); Total Protein 6.8 g/dL (6.4-8.2)
[2023-04-29] MEDS: METOCLOPRAMIDE HCL 10 MG TABLET PO ×3 (07:59→17:14)
[2023-04-29] MEDS: ACETAMINOPHEN 325 MG TABLET 650 MG PO (07:59)
--- NOTE | 2023-04-29 08:46 | PM.PN ---
Progress Note: Subjective Subjective Interval history: Patient is more alert and feels more clear minded today. She is having more left sided/rib/chest wall pain when she coughs. denies fevers or chills, no n/v/d. Discussed normal findings of MRI. Exam Narrative Exam Narrative: General: Patient is alert, and oriented to place, and time with normal affect, proper hygiene Skin: no visible rashes, or ulcers Head: atraumatic, acephalic Eyes: PERRLA, no nystagmus present, conjunctiva clear, no scleral icterus Ears: normal gross auditory acuity Heart: Normal rate and rhythm, no murmurs/rubs/gallops Lungs: no audible wheezes, crackles and normal breath sounds all lung stokes Abdomen: Normal audible bowel sounds, no distension, No palpable masses, no organomegaly, no rebound/guarding/ or rigidity Musculoskeletal: no swelling bilateral lower extremities Neuro: CN II-X grossly intact, normal sensation upper and lower extremities Constitutional Vital Signs, click to edit/add: Last Vital Signs Temp 97.9 F 04/29/23 04:25 Pulse 79 04/29/23 07:44 Resp 16 04/29/23 08:00 BP 165/75 H 04/29/23 04:25 Pulse Ox 91 L 04/29/23 04:25 O2 Del Method Room Air 04/29/23 04:25 Progress Note: Objective Labs Labs: Short CBC 04/28/23 04/29/23 Range/Units 14:00 04:36 WBC 8.4 7.8 (4.0-11.0) 10^3/uL Hgb 13.2 11.9 L (12.0-16.0) g/dL Hct 41.5 37.6 (36.0-48.0) % Plt Count 281 242 (150-450) 10^3/uL BMP 04/28/23 04/29/23 14:00 04:36 Sodium 141 137 Potassium 4.1 3.7 Chloride 108 H 105 Carbon Dioxide 20.4 L 22.7 BUN 27.0 H 28.0 H Creatinine 1.09 H 0.97 Glucose 108 H 98 Calcium 9.5 8.9 Liver Function 04/29/23 Range/Units 04:36 Total Bilirubin 0.6 (0.2-1.0) mg/dL AST 20 (15-37) U/L ALT 15 (14-59) U/L Alkaline Phosphatase 121 H (46-116) U/L Albumin 3.1 L (3.4-5.0) g/dL Urine 04/28/23 Range/Units 14:41 Urine Color Lt. yellow (YELLOW) Urine Clarity Clear (CLEAR) Urine pH 5.5 (5.0-9.0) Ur Specific [place] 1.025 (1.005-1.025) Urine Protein 30 A (NEG/TRACE) mg/dL Urine Glucose (UA) Negative (NEGATIVE) mg/dL Progress Note: A&P Assessment and Plan (1) Altered mental status: Assessment and Plan: polypharmacy, reaction to medication? ct of the brain negative and MRI negative. restart gabapentin today and hold baclofen. Neuro exam normal Qualifiers: Altered mental status type: transient alteration of awareness Qualified Code(s): R40.4 - Transient alteration of awareness (2) Medication side effect: Assessment and Plan: causing #1 (3) Contusion of left chest wall: Assessment and Plan: oxycodone and lidoderm patch as needed from rib fractures causing pain. Qualifiers: Encounter type: subsequent encounter Qualified Code(s): S20.212D - Contusion of left front wall of thorax, subsequent encounter (4) Hypertension: Assessment and Plan: continue metoprolol, isosorbide Qualifiers: Hypertension type: primary hypertension Qualified Code(s): I10 - Essential (primary) hypertension (5) GERD (gastroesophageal reflux disease): Assessment and Plan: continue protonix Qualifiers: Esophagitis presence: esophagitis presence not specified Qualified Code(s): K21.9 - Gastro-esophageal reflux disease without esophagitis Plan patient is a full code will provide some IVF, and hold insulting medications Lovenox for DVT prophylaxis patient is in observation status and is not expected to stay 2 midnights, hopeful discharge home tomorrow Urinary Catheter Management Urinary Catheter Management Straight: Cath placed during this visit: yes Urethral indwelling: No Insertion date: 04/29/23 Insertion time: 02:07
--- NOTE | 2023-04-29 09:15 | MR_ITS ---
The [place] [id number] Patient Name: GABRIELA GODINEZ MRN: [id number] date: 1955 Sex: F Assigned Patient Location: [place] Current Patient Location: [place] Accession/Order Number: [id number] Exam Date: 04/29/2023 09:15 Report Date: 04/29/2023 10:18 At the request of: MYRIAM SHERWOOD Procedure: MR head/brain wo con MRI BRAIN WITHOUT CONTRAST; 04/29/2023 9:15 AM EST History:difficulty with speech, AMS Comparison: Head CT 04/28/2023 . SEQUENCES: Per routine unenhanced protocol STUDY QUALITY: Motion artifact on several pulse sequences No evidence of acute infarction. No restricted diffusion. No unexpected paramagnetic substance deposition. Mild periventricular white matter changes/disease. There is moderate vaguely defined T2 and T2 FLAIR hyperintensity in the gabriela centered in the midline with extension to the right and left of midline. Peripheral zones are spared. Sparing of transverse pontine fibers No associated mass effect. No such finding in the basal ganglia VESSELS: Signal voids are present in the major intracranial blood vessels. BRAIN VOLUME: Mild to modest bifrontal atrophy. VENTRICLES: No hydrocephalus. ORBITS: No acute findings. SELLA/ SUPRASELLAR: No acute findings at relatively thick sections. CP ANGLES: No acute findings at relatively thick sections. UPPER CERVICAL: No acute findings. PARANASAL SINUSES: No air-fluid levels. Essentially clear at MRI MASTOIDS: Essentially clear at MRI CALVARIUM: No acute findings. OTHER: None. MR/MR head/brain wo con IMPRESSION: 1. No evidence of acute infarction. 2. Findings most consistent with osmotic demyelination isolated to the gabriela. Less likely the finding is based on microangiopathy. Clinical correlation is needed. Electronically authenticated by: OMAR KOENIG Date: 04/29/2023 10:18
[2023-04-29] MEDS: ENOXAPARIN SODIUM 40 MG/0.4 ML SYRINGE SUBQ (09:56)
[2023-04-29] MEDS: OMEPRAZOLE 40 MG CAPSULE.DR PO (09:56)
[2023-04-29] MEDS: GABAPENTIN 300 MG CAPSULE 600 MG PO (09:56)
[2023-04-29] MEDS: POTASSIUM CHLORIDE 10 MEQ ER TABLET PO ×2 (09:56→20:50)
[2023-04-29] MEDS: ISOSORBIDE MONONITRATE 60 MG TAB.ER.24H PO (09:56)
[2023-04-29] MEDS: CETIRIZINE HCL 10 MG TABLET PO (09:57)
[2023-04-29] MEDS: LACTATED RINGER'S SOLUTION 1,000 ML 50 ML IV (12:00)
[2023-04-29] MEDS: OXYCODONE HCL/ACETAMINOPHEN 5MG/325MG 1 TAB PO ×2 (13:30→19:56)
[2023-04-29] MEDS: LIDOCAINE 5% PATCH 1 PATCH TOPICAL (14:38)
--- NOTE | 2023-04-29 20:05 | RESP.RT ---
No PRN breathing tx given. No respiratory distress noted.
[2023-04-29] MEDS: QUETIAPINE FUMARATE 25 MG TABLET 50 MG PO (21:05)
[2023-04-29] MEDS: GABAPENTIN 300 MG CAPSULE 1200 MG PO (21:05)
[2023-04-30] VITALS (11 sets, daily range): BP systolic 105–134; BP diastolic 62–76; PULSE 71–81; RESP 16–18; TEMP 36.6; O2SAT 90–93
[2023-04-30] MEDS: OXYCODONE HCL/ACETAMINOPHEN 5MG/325MG 1 TAB PO ×3 (03:02→15:52)
[2023-04-30 05:20] LABS: Basophils Absolute Auto 0.1 10^3/uL (0.0-0.1); Basophils Percent Auto 1.4 % (0.2-2.0); Eosinophils Absolute Auto 0.3 10^3/uL (0.0-0.7); Eosinophils Percent Auto 3.6 % (0.9-7.0); Hematocrit 36.3 % (36.0-48.0); Hemoglobin 11.1 g/dL (12.0-16.0); Immature Granulocytes Abs Auto 0.04 10^3/uL (0.00-0.03); Immature Granulocytes Pct Auto 0.5 % (0.0-0.5); Lymphocytes Absolute Auto 2.7 10^3/uL (1.2-3.8); Lymphocytes Percent Auto 37.4 % (20.5-60.0); Mean Corpuscular HGB Conc 30.6 g/dL (29.9-35.2); Mean Corpuscular Hemoglobin 30.7 pg (26.7-34.0); Mean Corpuscular Volume 100.3 fL (81.0-99.0); Mean Platelet Volume 11.4 fL (9.5-13.5); Monocytes Absolute Auto 0.8 10^3/uL (0.3-0.8); Monocytes Percent Auto 11.1 % (1.7-12.0); Neutrophils Absolute Auto 3.4 10^3/uL (1.4-6.5); Platelet Count 245 10^3/uL (150-450); Red Blood Count 3.62 10^6/uL (4.20-5.40); Red Cell Distribution Width 14.6 % (11.0-15.0); White Blood Count 7.3 10^3/uL (4.0-11.0)
[2023-04-30 06:09] LABS: Alanine Aminotransferase 17 U/L (14-59); Albumin Globulin Ratio 0.8; Albumin Level 2.8 g/dL (3.4-5.0); Alkaline Phosphatase 110 U/L (46-116); Anion Gap 11.9; Aspartate Amino Transferase 19 U/L (15-37); BUN Creatinine Ratio 26.2; Bilirubin Total 0.3 mg/dL (0.2-1.0); Calcium 8.9 mg/dL (8.5-10.1); Carbon Dioxide 22.2 mmol/L (21.0-32.0); Chloride 109 mmol/L (98-107); Estimated GFR (African America >60 (>=60); Estimated GFR (Non-African Ame 54 (>=60); Globulin 3.3 g/dL; Glucose 117 mg/dL (74-106); Potassium 4.1 mmol/L (3.5-5.1); Sodium 139 mmol/L (136-145); Total Protein 6.1 g/dL (6.4-8.2)
[2023-04-30] MEDS: LACTATED RINGER'S SOLUTION 1,000 ML 50 ML IV (07:48)
--- NOTE | 2023-04-30 08:12 | P.PN_ITS ---
Progress Note: Subjective Subjective Interval history: Other than the left-sided chest wall pain, patient feels back to her normal self Exam Constitutional Vital Signs, click to edit/add: Last Vital Signs Temp 97.9 F 04/30/23 05:32 Pulse 76 04/30/23 07:00 Resp 18 04/30/23 05:32 BP 105/62 04/30/23 05:32 Pulse Ox 90 L 04/30/23 05:32 O2 Del Method Room Air 04/30/23 05:32 Documenting provider has reviewed patient's vital signs: yes Common normals: apparent distress (Moderate painful distress) HENMT Common normals: nasal mucous membranes and turbinates normal Chest Common normals: inspection of chest normal; palpation of chest abnormal (Left-sided chest wall tenderness) Respiratory Common normals: normal respiratory effort Auscultation: diminished lung sounds Cardio Common normals: regular rate and regular rhythm GI Common normals: Normal to inspection, nondistended, normoactive bowel sounds present Progress Note: Objective Labs Labs: Short CBC 04/30/23 Range/Units 04:33 WBC 7.3 (4.0-11.0) 10^3/uL Hgb 11.1 L (12.0-16.0) g/dL Hct 36.3 (36.0-48.0) % Plt Count 245 (150-450) 10^3/uL BMP 04/30/23 04:33 Sodium 139 Potassium 4.1 Chloride 109 H Carbon Dioxide 22.2 BUN 27.0 H Creatinine 1.03 H Glucose 117 H Calcium 8.9 Liver Function 04/30/23 Range/Units 04:33 Total Bilirubin 0.3 (0.2-1.0) mg/dL AST 19 (15-37) U/L ALT 17 (14-59) U/L Alkaline Phosphatase 110 (46-116) U/L Albumin 2.8 L (3.4-5.0) g/dL Progress Note: A&P Assessment and Plan (1) Altered mental status: Qualifiers: Altered mental status type: transient alteration of awareness Qualified Code(s): R40.4 - Transient alteration of awareness (2) Medication side effect: (3) Contusion of left chest wall: Qualifiers: Encounter type: subsequent encounter Qualified Code(s): S20.212D - Contusion of left front wall of thorax, subsequent encounter (4) Hypertension: Qualifiers: Hypertension type: primary hypertension Qualified Code(s): I10 - Essential (primary) hypertension (5) GERD (gastroesophageal reflux disease): Qualifiers: Esophagitis presence: esophagitis presence not specified Qualified Code(s): K21.9 - Gastro-esophageal reflux disease without esophagitis Plan Altered mental status-no focal neurological deficits, MRI scan from yesterday was normal. With no acute changes. Mentation is back to her baseline. This is off of the baclofen so likely a side effect of baclofen. Left-sided chest wall pain secondary to multiple rib fractures-patient is better she can ambulate safely at home, will check with physical therapy today for possible rehabilitation candidate GERD-continue with home medications Hypertension-continue with home medications Chronic knee pain status post replacement-plan per recommendations from rehabilitation COPD-stable continue with medications Generalized anxiety disorder-continue current medications Iron deficiency anemia-continue to monitor as an outpatient Evaluation from physical therapy P. Patient may need rehab. Due to the continuation of her symptoms and continuation of medical Treatment, If patient not discharged later today will change to inpatient status due to inpatient lasting more than 2 midnights.. Urinary Catheter Management Urinary Catheter Management Straight: Cath placed during this visit: yes Urethral indwelling: No Insertion date: 04/29/23 Insertion time: 02:07
--- NOTE | 2023-04-30 08:20 | CM.NOTE ---
Medicare Outpatient Observation Notice discussed with pt, pt verbalizes understanding and signs paper. Original given to pt and copy placed on pt's chart.
[2023-04-30] MEDS: ENOXAPARIN SODIUM 40 MG/0.4 ML SYRINGE SUBQ (08:39)
[2023-04-30] MEDS: METOCLOPRAMIDE HCL 10 MG TABLET PO ×3 (08:39→15:52)
[2023-04-30] MEDS: OMEPRAZOLE 40 MG CAPSULE.DR PO (08:39)
[2023-04-30] MEDS: POTASSIUM CHLORIDE 10 MEQ ER TABLET PO (08:39)
[2023-04-30] MEDS: GABAPENTIN 300 MG CAPSULE 600 MG PO (08:39)
[2023-04-30] MEDS: ISOSORBIDE MONONITRATE 60 MG TAB.ER.24H PO (08:39)
[2023-04-30] MEDS: METOPROLOL SUCCINATE 100 MG TAB.ER.24H PO (08:42)
[2023-04-30] MEDS: CETIRIZINE HCL 10 MG TABLET PO (09:56)
--- NOTE | 2023-04-30 11:34 | CM.NOTE ---
Discussed with pt about PT recommendations, pt refuses skilled therapy or HH services at this time. Messaged Dr. Sanderson, pt okay to discharge to home.
--- NOTE | 2023-04-30 12:32 | SWNOTE1 ---
Pt has refused HH and SNF. Pt still drives and is not home bound. Pt has a follow up apt. for her knee to get knee brace on May 09. Pt uses a walker at home.
[2023-04-30] MEDS: LIDOCAINE 5% PATCH 1 PATCH TOPICAL (14:38)
--- NOTE | 2023-05-01 15:42 | CM.DCFOLLOWU ---
Person spoke with: Trinity How are you feeling? Much better How is your pain? No pain Did you understand your discharge instructions? Yes Do you have any questions about your discharge instructions? No Were you given any prescriptions at discharge? No Were you able to get your prescriptions filled? N/A Do you understand how to take your medications as ordered? Yes Do you have any questions about your follow up appointment and do you plan to keep your follow up appointment? Yes Is there anything else that you would like to discuss? No Questions/Comments/Concerns/Other:
== END 2023-04-30 17:28 | disposition home or self-care (01) ==
LOC: ER 15:19 → MS 15:50
PROVIDERS: Admitting Provider Family Medicine; Emergency Provider Emergency Medicine; PCP Family Medicine; Visit Provider Family Medicine
DX: R41.82 Altered mental status, unspecified (principal); S20.212D Contusion of left front wall of thorax, subsequent encounter; K21.9 Gastro-esophageal reflux disease without esophagitis; M25.562 Pain in left knee; M25.561 Pain in right knee; G89.29 Other chronic pain; I10 Essential (primary) hypertension; D50.9 Iron deficiency anemia, unspecified; F41.1 Generalized anxiety disorder; S22.42XD Multiple fractures of ribs, left side, subsequent encounter for fracture with routine healing; T42.8X5A Adverse effect of antiparkinsonism drugs and other central muscle-tone depressants, initial encounter; Z79.899 Other long term (current) drug therapy; F17.210 Nicotine dependence, cigarettes, uncomplicated; J30.2 Other seasonal allergic rhinitis; J44.9 Chronic obstructive pulmonary disease, unspecified; Z90.49 Acquired absence of other specified parts of digestive tract; Z90.710 Acquired absence of both cervix and uterus; Z96.642 Presence of left artificial hip joint; Z96.641 Presence of right artificial hip joint; Z96.651 Presence of right artificial knee joint; Z96.652 Presence of left artificial knee joint; W19.XXXD Unspecified fall, subsequent encounter
CPT/HCPCS: 36415; 51798; 70450; 70551; 71045; 80048; 80053; 81001; 83735; 84443; 85025; 85610; 93005; 94667; 94668; 96360; 96361; 96372; 97161; 97165; 97530; 99285; G0378; J1650

== ENCOUNTER 2023-05-18 13:53 | Outpatient (OUT) | payer MEDICARE, OTHER, SELFPAY ==
--- NOTE | 2023-05-18 13:56 | XR_ITS ---
The [address] [address] Patient Name: GABRIELA GODINEZ MRN: [id number] date: 1955 Sex: F Assigned Patient Location: LAB Current Patient Location: Accession/Order Number: [id number] Exam Date: 05/18/2023 14:14 Report Date: 05/19/2023 07:32 At the request of: LEVI SHINE Procedure: XR ribs LT min 3V w CXR1V EXAMINATION: XR ribs LT min 3V w CXR1V HISTORY: Rib Fracture follow-up COMPARISON: XR RIBS left 04/26/2023, XR chest 04/28/2023 FINDINGS: LUNGS: Mild stranding within lateral left lung base suspected represent atelectasis. PLEURA: Trace amount of left pleural fluid. MEDIASTINUM: No visible mass or adenopathy. CARDIAC: No cardiomegaly or cardiac silhouette abnormality. RIBS: Stable nondisplaced minimally displaced fractures involving the left third through eighth ribs. OTHER: Negative. XR/XR ribs LT min 3V w CXR1V IMPRESSION: 1. Grossly stable left third through eighth rib fractures. 2. Suspect mild atelectasis and trace amount of pleural fluid within left lung base. Electronically authenticated by: GARO CASILLAS Date: 05/19/2023 07:32
== END 2023-05-18 13:54 | disposition home or self-care (01) ==
LOC: LAB 13:53
PROVIDERS: PCP Family Medicine; Visit Provider Family Medicine
DX: S22.42XD Multiple fractures of ribs, left side, subsequent encounter for fracture with routine healing (principal)
CPT/HCPCS: 71101

== ENCOUNTER 2023-06-18 14:12 | Outpatient (OUT) | payer MEDICARE, OTHER, SELFPAY ==
--- NOTE | 2023-06-18 14:16 | XR_ITS ---
The [address] [address] Patient Name: GABRIELA GODINEZ MRN: [id number] date: 1955 Sex: F Assigned Patient Location: [facility] Current Patient Location: Accession/Order Number: [id number] Exam Date: 06/18/2023 14:17 Report Date: 06/19/2023 10:29 At the request of: LEVI SHINE Procedure: XR ribs LT min 3V w CXR1V EXAMINATION: XR ribs LT min 3V w CXR1V HISTORY: Rib Pain R07.81 COMPARISON: 05/18/2023 FINDINGS: LUNGS: Stable linear opacity left mid lung, discoid atelectasis is favored. No new focal parenchymal infiltrates. PLEURA: No pneumothorax, effusion, or pleural thickening. MEDIASTINUM: No visible mass or adenopathy. CARDIAC: No cardiomegaly or cardiac silhouette abnormality. RIBS: Cortical irregularities along the left lateral and posterior fourth through eighth ribs not seen on the prior exam with some callus formation OTHER: Negative. XR/XR ribs LT min 3V w CXR1V IMPRESSION: Subacute fractures of the left lateral posterior fourth through eighth ribs Electronically authenticated by: ABDIAS LAUGHLIN Date: 06/19/2023 10:29
== END 2023-06-18 14:13 | disposition home or self-care (01) ==
LOC: RAD 14:12
PROVIDERS: PCP Family Medicine; Visit Provider Family Medicine
DX: R07.81 Pleurodynia (principal); S22.42XA Multiple fractures of ribs, left side, initial encounter for closed fracture
CPT/HCPCS: 71101

== ENCOUNTER 2023-06-25 11:30 | Outpatient (OUT) | payer MEDICARE, OTHER, SELFPAY ==
[2023-06-25 13:48] LABS: Estimated Average Glucose 91 mg/dL; Glycohemoglobin A1C 4.8 % (4.5-6.2)
== END 2023-06-25 11:31 | disposition home or self-care (01) ==
PROVIDERS: PCP Family Medicine; Visit Provider Family Medicine
DX: R73.09 Other abnormal glucose (principal)
CPT/HCPCS: 36415; 83036

== ENCOUNTER 2023-06-25 12:55 | Emergency (ER) | payer MEDICARE, OTHER, SELFPAY ==
[2023-06-25 13:13] VITALS: BP 120/60; PULSE 72; RESP 16; TEMP 36.6; O2SAT 93; BMI 28.8
--- NOTE | 2023-06-25 16:29 | CT_ITS ---
The [address] [address] Patient Name: GABRIELA GODINEZ MRN: [id number] date: 1955 Sex: F Assigned Patient Location: ER Current Patient Location: Accession/Order Number: [id number] Exam Date: 06/25/2023 17:13 Report Date: 06/25/2023 18:24 At the request of: CHRISTIE ORDOÑEZ Procedure: CT head/brain wo con EXAM: Head CT without contrast. Facial bone CT without contrast. Chest CT without contrast. Dose reduction technique used: Automated exposure control and/or adjustment of the mA and/or kV according to patient size and/or use of iterative reconstruction technique. REASON FOR EXAM: fall COMPARISON: CT scan dated 04/28/2023 FINDINGS: HEAD: No intracranial hemorrhage, mass effect, midline shift, fractures or evidence of acute ischemic infarct. No hydrocephalus. MAXILLOFACIAL: No acute facial bone or paranasal sinus fractures. Bilateral orbits are intact. No mandible fracture or dislocation. Bilateral globes are grossly intact. No orbital hematoma or inflammatory changes. Paranasal sinuses and mastoid air cells are clear. Multiple dental erosions with multiple small bilateral mandibular periapical abscesses. CHEST: Minimal airspace opacities in the anterior right upper lobe. Otherwise no other acute airspace opacities. No pneumothorax. No pleural effusion. No acute fractures. No concerning pulmonary nodules. No definite lymphadenopathy in the chest. Small amount of scarring in the left lower lung. Centrilobular emphysema in both lungs. Coronary atherosclerotic calcifications are present heterogenous attenuation left adrenal mass measuring 4.1 x 2.7 cm in maximal axial dimensions where visualized, this measured approximately 3.6 x 2.7 cm on 08/16/2020. Right axillary surgical clips. Multiple old left rib fractures. T5 superior endplate compression fracture with mild height loss. T11 compression fracture with mild to moderate height loss, these are chronic. Remainder unremarkable. CT/CT head/brain wo con IMPRESSION: 1. No acute intracranial abnormalities. 2. No acute maxillofacial abnormalities. 3. Minimal opacities in the anterior upper lobe could be due to infection/inflammation versus minimal contusion, correlate clinically. Exam: Radiographs: XR lumbar spine 2-3V, XR humerus LT, Reason for exam: fall Comparison: CT scan dated 09/26/2022 IMPRESSION: No radiographically evident lumbar spine fractures or malalignment. Lumbar spine degenerative changes with multilevel mild disc space narrowing. Remainder of the lumbar spine radiographs is unremarkable. Mild left glenohumeral and AC joint degenerative change. Mild left elbow degenerative changes. Left humerus radiographs are otherwise unremarkable. Electronically authenticated by: SORIN COOMBS Date: 06/25/2023 18:24
[2023-06-25 16:31] VITALS: BP 146/65; PULSE 80; RESP 18; O2SAT 96
--- NOTE | 2023-06-25 16:34 | CT_ITS ---
The [address] [address] Patient Name: GABRIELA GODINEZ MRN: [id number] date: 1955 Sex: F Assigned Patient Location: ER Current Patient Location: Accession/Order Number: [id number] Exam Date: 06/25/2023 17:13 Report Date: 06/25/2023 18:24 At the request of: CHRISTIE ORDOÑEZ Procedure: CT chest wo con EXAM: Head CT without contrast. Facial bone CT without contrast. Chest CT without contrast. Dose reduction technique used: Automated exposure control and/or adjustment of the mA and/or kV according to patient size and/or use of iterative reconstruction technique. REASON FOR EXAM: fall COMPARISON: CT scan dated 04/28/2023 FINDINGS: HEAD: No intracranial hemorrhage, mass effect, midline shift, fractures or evidence of acute ischemic infarct. No hydrocephalus. MAXILLOFACIAL: No acute facial bone or paranasal sinus fractures. Bilateral orbits are intact. No mandible fracture or dislocation. Bilateral globes are grossly intact. No orbital hematoma or inflammatory changes. Paranasal sinuses and mastoid air cells are clear. Multiple dental erosions with multiple small bilateral mandibular periapical abscesses. CHEST: Minimal airspace opacities in the anterior right upper lobe. Otherwise no other acute airspace opacities. No pneumothorax. No pleural effusion. No acute fractures. No concerning pulmonary nodules. No definite lymphadenopathy in the chest. Small amount of scarring in the left lower lung. Centrilobular emphysema in both lungs. Coronary atherosclerotic calcifications are present heterogenous attenuation left adrenal mass measuring 4.1 x 2.7 cm in maximal axial dimensions where visualized, this measured approximately 3.6 x 2.7 cm on 08/16/2020. Right axillary surgical clips. Multiple old left rib fractures. T5 superior endplate compression fracture with mild height loss. T11 compression fracture with mild to moderate height loss, these are chronic. Remainder unremarkable. CT/CT chest wo con IMPRESSION: 1. No acute intracranial abnormalities. 2. No acute maxillofacial abnormalities. 3. Minimal opacities in the anterior upper lobe could be due to infection/inflammation versus minimal contusion, correlate clinically. Exam: Radiographs: XR lumbar spine 2-3V, XR humerus LT, Reason for exam: fall Comparison: CT scan dated 09/26/2022 IMPRESSION: No radiographically evident lumbar spine fractures or malalignment. Lumbar spine degenerative changes with multilevel mild disc space narrowing. Remainder of the lumbar spine radiographs is unremarkable. Mild left glenohumeral and AC joint degenerative change. Mild left elbow degenerative changes. Left humerus radiographs are otherwise unremarkable. Electronically authenticated by: SORIN COOMBS Date: 06/25/2023 18:24
--- NOTE | 2023-06-25 16:34 | CT_ITS ---
The [address] [address] Patient Name: GABRIELA GODINEZ MRN: [id number] date: 1955 Sex: F Assigned Patient Location: ER Current Patient Location: Accession/Order Number: [id number] Exam Date: 06/25/2023 17:13 Report Date: 06/25/2023 18:24 At the request of: CHRISTIE ORDOÑEZ Procedure: CT facial bones wo con EXAM: Head CT without contrast. Facial bone CT without contrast. Chest CT without contrast. Dose reduction technique used: Automated exposure control and/or adjustment of the mA and/or kV according to patient size and/or use of iterative reconstruction technique. REASON FOR EXAM: fall COMPARISON: CT scan dated 04/28/2023 FINDINGS: HEAD: No intracranial hemorrhage, mass effect, midline shift, fractures or evidence of acute ischemic infarct. No hydrocephalus. MAXILLOFACIAL: No acute facial bone or paranasal sinus fractures. Bilateral orbits are intact. No mandible fracture or dislocation. Bilateral globes are grossly intact. No orbital hematoma or inflammatory changes. Paranasal sinuses and mastoid air cells are clear. Multiple dental erosions with multiple small bilateral mandibular periapical abscesses. CHEST: Minimal airspace opacities in the anterior right upper lobe. Otherwise no other acute airspace opacities. No pneumothorax. No pleural effusion. No acute fractures. No concerning pulmonary nodules. No definite lymphadenopathy in the chest. Small amount of scarring in the left lower lung. Centrilobular emphysema in both lungs. Coronary atherosclerotic calcifications are present heterogenous attenuation left adrenal mass measuring 4.1 x 2.7 cm in maximal axial dimensions where visualized, this measured approximately 3.6 x 2.7 cm on 08/16/2020. Right axillary surgical clips. Multiple old left rib fractures. T5 superior endplate compression fracture with mild height loss. T11 compression fracture with mild to moderate height loss, these are chronic. Remainder unremarkable. CT/CT facial bones wo con IMPRESSION: 1. No acute intracranial abnormalities. 2. No acute maxillofacial abnormalities. 3. Minimal opacities in the anterior upper lobe could be due to infection/inflammation versus minimal contusion, correlate clinically. Exam: Radiographs: XR lumbar spine 2-3V, XR humerus LT, Reason for exam: fall Comparison: CT scan dated 09/26/2022 IMPRESSION: No radiographically evident lumbar spine fractures or malalignment. Lumbar spine degenerative changes with multilevel mild disc space narrowing. Remainder of the lumbar spine radiographs is unremarkable. Mild left glenohumeral and AC joint degenerative change. Mild left elbow degenerative changes. Left humerus radiographs are otherwise unremarkable. Electronically authenticated by: SORIN COOMBS Date: 06/25/2023 18:24
--- NOTE | 2023-06-25 16:35 | ED_ITS ---
HPI - General Adult General Chief complaint: Fall Stated complaint: FALL Time Seen by Provider: 06/25/23 16:18 Source: patient Mode of arrival: Wheelchair Limitations: no limitations History of Present Illness HPI narrative: Patient is a 68-year-old female who presents to the emergency department for injuries after a fall this morning. She states she wears a leg brace that she has chronic issues with her ambulation and lower extremities. She typically uses a walker to help her ambulate but left it in the car today. She drove herself to the emergency department. She states earlier today her leg brace locked and she fell forward accidentally. She denies loss of consciousness although she did hit her head and had bruising, bleeding from the nose. She complains of pain to the left proximal humerus, right posterior chest wall, right low back. She denies any new hip or lower extremity pain. She has not had any vomiting, visual changes, peripheral paresthesias. She denies any neck or midline spinal pain. She does not take any blood thinners Related Data Home Medications ?Medication ?Instructions ?Recorded ?Confirmed albuterol sulfate 90 mcg/actuation 2 inh inhalation Q6H PRN shortness 09/26/22 06/25/23 aerosol inhaler of breath or wheezing cetirizine 10 mg tablet 10 mg PO DAILY 09/26/22 06/25/23 gabapentin 600 mg tablet 1,200 mg PO .qhs 09/26/22 06/25/23 isosorbide mononitrate 60 mg 60 mg PO .q24 09/26/22 06/25/23 tablet,extended release 24 hr metoclopramide HCl 10 mg tablet 10 mg PO .COMPLEX 09/26/22 06/25/23 metoprolol succinate 100 mg 100 mg PO Q12H 09/26/22 06/25/23 tablet,extended release 24 hr pantoprazole 40 mg tablet,delayed 40 mg PO DAILY 09/26/22 06/25/23 release potassium chloride 10 mEq 10 meq PO BID 09/26/22 06/25/23 tablet,extended release(part/cryst) quetiapine 50 mg tablet 50 mg PO .qhs 09/26/22 06/25/23 tizanidine 4 mg tablet 4 mg PO Q12H PRN muscle spasticity 09/26/22 06/25/23 gabapentin 600 mg tablet 600 mg PO QAM 04/28/23 06/25/23 venlafaxine 150 mg 150 mg PO DAILY 06/25/23 06/25/23 capsule,extended release 24 hr venlafaxine 75 mg capsule,extended 75 mg PO DAILY 06/25/23 06/25/23 release 24 hr Previous Rx's ?Medication ?Instructions ?Recorded amoxicillin 875 mg-potassium 1 tab PO Q12H #20 tabs 06/25/23 clavulanate 125 mg tablet hydrocodone 5 mg-acetaminophen 325 1 tab PO Q6H PRN pain 3 days #12 06/25/23 mg tablet tabs Allergies Allergy/AdvReac Type Severity Reaction Status Date / Time NSAIDS (Non-Steroidal Allergy Severe Anaphylaxis Verified 06/25/23 13:12 Anti-Inflamma vancomycin Allergy Verified 06/25/23 13:12 morphine AdvReac Intermediate Verified 06/25/23 13:12 baclofen AdvReac Verified 06/25/23 13:12 Review of Systems ROS Constitutional Denies: fever or chills Eyes Denies: change in vision or blurry vision Ears, nose, mouth, and throat Denies: throat pain or nasal congestion Cardiovascular Denies: chest pain Respiratory Denies: shortness of breath or cough Gastrointestinal Denies: nausea or vomiting Musculoskeletal Reports: back pain, extremity pain and joint pain; Denies: neck pain or extremity swelling Integumentary/Breast Denies: rash Neurological Denies: headache Hematologic/Lymphatic Denies: easy bruising or easy bleeding [facility] Medical History GERD (gastroesophageal reflux disease) ?K21.9 - Gastro-esophageal reflux disease without esophagitis (ICD-10) Anxiety ?F41.9 - Anxiety disorder, unspecified (ICD-10) Seasonal allergies ?J30.2 - Other seasonal allergic rhinitis (ICD-10) Bronchitis ?J40 - Bronchitis, not specified as acute or chronic (ICD-10) COPD (chronic obstructive pulmonary disease) ?J44.9 - Chronic obstructive pulmonary disease, unspecified (ICD-10) Hypertension ?I10 - Essential (primary) hypertension (ICD-10) Surgical History History of appendectomy ?Z90.49 - Acquired absence of other specified parts of digestive tract (ICD- 10) History of hysterectomy ?Z90.710 - Acquired absence of both cervix and uterus (ICD-10) History of left hip replacement ?Z96.642 - Presence of left artificial hip joint (ICD-10) History of right hip replacement ?Z96.641 - Presence of right artificial hip joint (ICD-10) History of total right knee replacement ?Z96.651 - Presence of right artificial knee joint (ICD-10) History of left knee replacement ?Z96.652 - Presence of left artificial knee joint (ICD-10) Family History Mother Family history of CHF (congestive heart failure) Family history of cancer Family history of diabetes mellitus Family history of hypertension Family history of myocardial infarction Brother Family history of cancer Family history of hypertension Social History Within the past year, how often did you have a drink containing alcohol: never Score interpretation: A score less than 3 is consistent with normal alcohol consumption. Smoking status: Light tobacco smoker Non-prescribed substance use: denies use Previous occupational history: disabled Highest level of school completed/degree received: some college, no degree Are you now , , , , never or living with a partner: Little interest or pleasure in doing things: not at all Feeling down, depressed, or hopeless: not at all Feel stressed/tense/nervous/anxious/difficulty sleeping: only a little Exam Narrative Exam Narrative: Gen.: Awake, alert, in no distress Head: Normocephalic, Ecchymosis noted to the middle of the forehead, ecchymosis across the nasal bridge with faint ecchymosis under the bilateral orbits. Normal extraocular muscle motion. No septal hematoma or epistaxis noted. No d ental injury noted. ENT: Moist mucous membranes, C-spine nontender with full range of motion Respiratory: No respiratory distress, lungs clear bilaterally; Tenderness of the right posterior chest wall with no ecchymosis or crepitance Cardio: Regular rate and rhythm Gastrointestinal: Abdomen is soft, nondistended and nontender to palpation; Pelvis is stable and hips are nontender Back: No bony tenderness of the midline T-spine or lumbar spine. Diffuse tenderness of the paraspinal muscles of the right low back with no obvious deformity. Extremities: Moves extremities equally, Ecchymosis noted to the left proximal humerus with no obvious deformity. Psych: Normal mood and affect Neuro: No focal neuro deficit Skin: Warm, dry, intact Constitutional Vital Signs, click to edit/add: Last Vital Signs Temp 97.9 F 06/25/23 13:13 Pulse 80 06/25/23 16:31 Resp 18 06/25/23 16:31 BP 146/65 H 06/25/23 16:31 Pulse Ox 96 06/25/23 16:31 O2 Del Method Room Air 06/25/23 13:13 Course Vital Signs Vital signs: Vital Signs Temperature 97.9 F 06/25/23 13:13 Pulse Rate 72 06/25/23 13:13 Respiratory Rate 16 06/25/23 13:13 Blood Pressure 120/60 06/25/23 13:13 Pulse Oximetry 93 L 06/25/23 13:13 Oxygen Delivery Method Room Air 06/25/23 13:13 Temperature 97.9 F 06/25/23 13:13 Pulse Rate 80 06/25/23 16:31 Respiratory Rate 18 06/25/23 16:31 Blood Pressure 146/65 H 06/25/23 16:31 Pulse Oximetry 96 06/25/23 16:31 Oxygen Delivery Method Room Air 06/25/23 13:13 Medical Decision Making MDM Narrative Medical decision making narrative: Patient sent for CTs of the head, facial bones, chest, x-rays of the left humerus and lumbar spine. No evidence of acute process although the patient has a minimal opacity in the right upper lobe which may be infectious versus inflammatory versus minimal contusion of the lung. She is in no respiratory distress with stable vital signs and not anticoagulated. She states she had surgery for thoracic outlet syndrome with rib resection years ago and we suspect this may be scarring. Given the patient's dental abscesses that were noted on CT, she will be treated with antibiotics to cover inflammatory/infectious process in the lung as well as the teeth. Short course of analgesics given for home. She has no focal neurodeficits and her ambulation is at baseline. She was reevaluated by Dr. Merlos at time of discharge, she is in no distress and comfortable with treatment plan. She will follow with her PCP and return to the ER if symptoms change or worsen Medical Records Medical records reviewed: Yes I reviewed the patient's medical records Imaging Data CT scan - head: Attestation: I have reviewed the pertinent imaging results. Radiologist's impression: ITS Impressions Head CT 06/25/23 16:29 IMPRESSION: 1. No acute intracranial abnormalities. 2. No acute maxillofacial abnormalities. 3. Minimal opacities in the anterior upper lobe could be due to infection/inflammation versus minimal contusion, correlate clinically. Exam: Radiographs: XR lumbar spine 2-3V, XR humerus LT, Reason for exam: fall Comparison: CT scan dated 09/26/2022 IMPRESSION: No radiographically evident lumbar spine fractures or malalignment. Lumbar spine degenerative changes with multilevel mild disc space narrowing. Remainder of the lumbar spine radiographs is unremarkable. Mild left glenohumeral and AC joint degenerative change. Mild left elbow degenerative changes. Left humerus radiographs are otherwise unremarkable. Electronically authenticated by: SORIN COOMBS Date: 06/25/2023 18:[address] 06/25/23 16:34 IMPRESSION: 1. No acute intracranial abnormalities. 2. No acute maxillofacial abnormalities. 3. Minimal opacities in the anterior upper lobe could be due to infection/inflammation versus minimal contusion, correlate clinically. Exam: Radiographs: XR lumbar spine 2-3V, XR humerus LT, Reason for exam: fall Comparison: CT scan dated 09/26/2022 IMPRESSION: No radiographically evident lumbar spine fractures or malalignment. Lumbar spine degenerative changes with multilevel mild disc space narrowing. Remainder of the lumbar spine radiographs is unremarkable. Mild left glenohumeral and AC joint degenerative change. Mild left elbow degenerative changes. Left humerus radiographs are otherwise unremarkable. Electronically authenticated by: SORIN COOMBS Date: 06/25/2023 18:[address] 06/25/23 16:34 IMPRESSION: 1. No acute intracranial abnormalities. 2. No acute maxillofacial abnormalities. 3. Minimal opacities in the anterior upper lobe could be due to infection/inflammation versus minimal contusion, correlate clinically. Exam: Radiographs: XR lumbar spine 2-3V, XR humerus LT, Reason for exam: fall Comparison: CT scan dated 09/26/2022 IMPRESSION: No radiographically evident lumbar spine fractures or malalignment. Lumbar spine degenerative changes with multilevel mild disc space narrowing. Remainder of the lumbar spine radiographs is unremarkable. Mild left glenohumeral and AC joint degenerative change. Mild left elbow degenerative changes. Left humerus radiographs are otherwise unremarkable. Electronically authenticated by: SORIN COOMBS Date: 06/25/2023 18:24 Humerus X-Ray 06/25/23 16:34 IMPRESSION: 1. No acute intracranial abnormalities. 2. No acute maxillofacial abnormalities. 3. Minimal opacities in the anterior upper lobe could be due to infection/inflammation versus minimal contusion, correlate clinically. Exam: Radiographs: XR lumbar spine 2-3V, XR humerus LT, Reason for exam: fall Comparison: CT scan dated 09/26/2022 IMPRESSION: No radiographically evident lumbar spine fractures or malalignment. Lumbar spine degenerative changes with multilevel mild disc space narrowing. Remainder of the lumbar spine radiographs is unremarkable. Mild left glenohumeral and AC joint degenerative change. Mild left elbow degenerative changes. Left humerus radiographs are otherwise unremarkable. Electronically authenticated by: SORIN COOMBS Date: 06/25/2023 18:24 Lumbar Spine X-Ray 06/25/23 16:34 IMPRESSION: 1. No acute intracranial abnormalities. 2. No acute maxillofacial abnormalities. 3. Minimal opacities in the anterior upper lobe could be due to infection/inflammation versus minimal contusion, correlate clinically. Exam: Radiographs: XR lumbar spine 2-3V, XR humerus LT, Reason for exam: fall Comparison: CT scan dated 09/26/2022 IMPRESSION: No radiographically evident lumbar spine fractures or malalignment. Lumbar spine degenerative changes with multilevel mild disc space narrowing. Remainder of the lumbar spine radiographs is unremarkable. Mild left glenohumeral and AC joint degenerative change. Mild left elbow degenerative changes. Left humerus radiographs are otherwise unremarkable. Electronically authenticated by: SORIN COOMBS Date: 06/25/2023 18:24 Discharge Plan Discharge Stand Alone Forms: Portal Instructions Chief Complaint: Fall Clinical Impression: Closed head injury, Contusion of left shoulder, Fall, Low back pain Patient Disposition: Home, Self-Care Time of Disposition Decision: 18:38 Condition: Good Prescriptions / Home Meds: New hydrocodone-acetaminophen 5-325 mg tablet 1 tab PO Q6H PRN (Reason: pain) 3 Days Qty: 12 0RF Rx Instructions: DX: M54.5 amoxicillin-pot clavulanate 875-125 mg tablet 1 tab PO Q12H Qty: 20 0RF No Action gabapentin 600 mg tablet 600 mg PO QAM albuterol sulfate 90 mcg/actuation HFA aerosol inhaler 2 inh INHALATION Q6H PRN (Reason: shortness of breath or wheezing) cetirizine 10 mg tablet 10 mg PO DAILY gabapentin 600 mg tablet 1,200 mg PO .qhs isosorbide mononitrate 60 mg tablet extended release 24 hr 60 mg PO .q24 metoprolol succinate 100 mg tablet extended release 24 hr 100 mg PO Q12H metoclopramide HCl 10 mg tablet 10 mg PO .COMPLEX Rx Instructions: 10 mg orally before meals at at bedtime; pantoprazole 40 mg tablet,delayed release (DR/EC) 40 mg PO DAILY potassium chloride 10 mEq tablet,ER particles/crystals 10 meq PO BID quetiapine 50 mg tablet 50 mg PO .qhs tizanidine 4 mg tablet 4 mg PO Q12H PRN (Reason: muscle spasticity) venlafaxine 150 mg capsule,extended release 24hr 150 mg PO DAILY venlafaxine 75 mg capsule,extended release 24hr 75 mg PO DAILY Print Language: Malagasy Instructions: Fall Prevention for Older Adults (ED), Head Injury (ED), Contusion in Adults (ED) Referrals: Bill Sanderson MD [Primary Care Provider] - 1 week
[2023-06-25] MEDS: OXYCODONE HCL/ACETAMINOPHEN 5MG/325MG 1 TAB PO (17:04)
== END 2023-06-25 18:54 | disposition home or self-care (01) ==
PROVIDERS: Emergency Provider Emergency Medicine; PCP Family Medicine
DX: R73.09 Other abnormal glucose (principal); S09.8XXA Other specified injuries of head, initial encounter; M54.50 Low back pain, unspecified; S40.012A Contusion of left shoulder, initial encounter; W19.XXXA Unspecified fall, initial encounter; Z79.899 Other long term (current) drug therapy; K21.9 Gastro-esophageal reflux disease without esophagitis; F41.9 Anxiety disorder, unspecified; J44.9 Chronic obstructive pulmonary disease, unspecified; I10 Essential (primary) hypertension; Z90.49 Acquired absence of other specified parts of digestive tract; Z90.710 Acquired absence of both cervix and uterus; Z96.642 Presence of left artificial hip joint; Z96.641 Presence of right artificial hip joint; Z96.651 Presence of right artificial knee joint; Z96.652 Presence of left artificial knee joint; F17.210 Nicotine dependence, cigarettes, uncomplicated
CPT/HCPCS: 36415; 70450; 70486; 71250; 72100; 73060; 83036; 99284

== ENCOUNTER 2023-12-03 12:45 | Emergency (ER) | payer MEDICARE, OTHER, SELFPAY ==
[2023-12-03 12:50] VITALS: BP 180/100; PULSE 103; TEMP 37.6; O2SAT 96; BMI 29.5
--- NOTE | 2023-12-03 13:08 | CT_ITS ---
The [address] [address] Patient Name: GABRIELA GODINEZ MRN: [id number] date: 1955 Sex: F Assigned Patient Location: ER Current Patient Location: ER Accession/Order Number: [id number] Exam Date: 12/03/2023 13:28 Report Date: 12/03/2023 13:52 At the request of: CHRISTIE ORDOÑEZ Procedure: CT head/brain wo con EXAM: CT head/brain wo con HISTORY: fall with head injury COMPARISON: 06/25/2023 TECHNIQUE: Multiple thin computed tomograms of the head were obtained, with sagittal and coronal reconstructions. Radiation reduction technique and algorithms were utilized during the study. FINDINGS: The ventricles are not enlarged, the lateral ventricles are symmetric and the third ventricles in the midline. Sylvian fissures and cortical sulci are unremarkable. There is no evidence of an intracranial hemorrhage, mass lesion or apparent acute infarct. The cerebellum and visualized brainstem are intact. The visualized paranasal sinuses are clear. The middle ears are aerated. The mastoid sinuses are clear. There is no apparent acute skull fracture. CT/CT head/brain wo con IMPRESSION: There is no evidence of an intracranial hemorrhage, mass lesion or apparent acute infarct. The sinuses are clear. There is no apparent acute skull fracture. The overall appearance has not changed significantly. Electronically authenticated by: MELLY SEO Date: 12/03/2023 13:52
--- NOTE | 2023-12-03 13:08 | CT_ITS ---
[address] [address] Patient Name: GABRIELA GODINEZ MRN: [id number] date: 1955 Sex: F Assigned Patient Location: ER Current Patient Location: ER Accession/Order Number: [id number] Exam Date: 12/03/2023 13:28 Report Date: 12/03/2023 14:24 At the request of: CHRISTIE ORDOÑEZ Procedure: CT cervical spine wo con EXAM: CT cervical spine wo con HISTORY: fall COMPARISON: None. TECHNIQUE: Dose reduction techniques were achieved by using automated exposure control and/or adjustment of mA and/or kV according to patient size and/or use of iterative reconstruction technique.CT of the cervical spine without contrast. FINDINGS: Moderate degeneration at the C4-C5, C5-C6 and C6-C7 disc spaces. Moderate degeneration at the atlantodental interval. Craniocervical junction is unremarkable. Lung apices are clear. No acute fracture or dislocation. Normal alignment of the cervical spine. Prevertebral soft tissues are normal. CT/CT cervical spine wo con IMPRESSION: 1. No acute fracture. 2. Normal alignment of the cervical spine. 3. Prevertebral soft tissues are normal. Electronically authenticated by: TERRENCE RODRIGUEZ Date: 12/03/2023 14:24
--- NOTE | 2023-12-03 13:08 | CT_ITS ---
The [address] [address] Patient Name: GABRIELA GODINEZ MRN: [id number] date: 1955 Sex: F Assigned Patient Location: ER Current Patient Location: ER Accession/Order Number: [id number] Exam Date: 12/03/2023 13:28 Report Date: 12/03/2023 14:22 At the request of: CHRISTIE ORDOÑEZ Procedure: CT facial bones wo con EXAM: CT facial bones wo con HISTORY: Fall COMPARISON: None. TECHNIQUE: Dose reduction techniques were achieved by using automated exposure control and/or adjustment of mA and/or kV according to patient size and/or use of iterative reconstruction technique.CT of the facial bones. FINDINGS: No acute fracture of the facial bones. No acute abnormality of the orbits. Moderate degeneration of the atlantodental interval. Prevertebral soft tissues are normal. Bilateral cataract surgery. Orbits are otherwise normal. CT/CT facial bones wo con IMPRESSION: 1. No acute fractures of the facial bones. Electronically authenticated by: TERRENCE RODRIGUEZ Date: 12/03/2023 14:22
--- NOTE | 2023-12-03 13:10 | ED_ITS ---
HPI HPI - Fall General Chief Complaint: Fall Stated Complaint: NOSE Time Seen by Provider: 12/03/23 13:04 Source: patient Mode of arrival: walk-in Limitations: no limitations History of Present Illness HPI Narrative: Patient is a 68-year-old female who presents to the emergency department for the evaluation of injury to the nose that occurred about 12 hours ago at home. She states that she was getting up in the middle of the night to go to the bathroom when she tripped on a rug and fell forward hitting her nose on a countertop. She denies loss of consciousness. She complains of a frontal headache across the nasal bridge. No visual changes. She sustained an abrasion to the anterior portion of the nose and small skin tear to the left forearm. She complains of mild pain in the neck, facial pain. She had a nosebleed at the time of the injury but has not had any persistent bleeding. No dental injury. She was ambulatory and drove herself to the ER. Related Data Home Medications ?Medication ?Instructions ?Recorded ?Confirmed albuterol sulfate 90 mcg/actuation 2 inh inhalation Q6H PRN shortness 09/26/22 0 06/25/23 aerosol inhaler of breath or wheezing cetirizine 10 mg tablet 10 mg PO DAILY 09/26/22 06/25/23 gabapentin 600 mg tablet 1,200 mg PO .qhs 09/26/22 06/25/23 isosorbide mononitrate 60 mg 60 mg PO .q24 09/26/22 06/25/23 tablet,extended release 24 hr metoclopramide HCl 10 mg tablet 10 mg PO .COMPLEX 09/26/22 06/25/23 metoprolol succinate 100 mg 100 mg PO Q12H 09/26/22 06/25/23 tablet,extended release 24 hr pantoprazole 40 mg tablet,delayed 40 mg PO DAILY 09/26/22 06/25/23 release potassium chloride 10 mEq 10 meq PO BID 09/26/22 06/25/23 tablet,extended release(part/cryst) quetiapine 50 mg tablet 50 mg PO .qhs 09/26/22 06/25/23 tizanidine 4 mg tablet 4 mg PO Q12H PRN muscle spasticity 09/26/22 06/25/23 gabapentin 600 mg tablet 600 mg PO QAM 04/28/23 06/25/23 venlafaxine 150 mg 150 mg PO DAILY 06/25/23 06/25/23 capsule,extended release 24 hr venlafaxine 75 mg capsule,extended 75 mg PO DAILY 06/25/23 06/25/23 release 24 hr Previous Rx's ?Medication ?Instructions ?Recorded amoxicillin 875 mg-potassium 1 tab PO Q12H #20 tabs 06/25/23 clavulanate 125 mg tablet hydrocodone 5 mg-acetaminophen 325 1 tab PO Q6H PRN pain 3 days #12 06/25/23 mg tablet tabs Allergies Allergy/AdvReac Type Severity Reaction Status Date / Time NSAIDS (Non-Steroidal Allergy Severe Anaphylaxis Verified 12/03/23 12:54 Anti-Inflamma vancomycin Allergy hair falls Verified 12/03/23 12:54 out morphine AdvReac Intermediate Hives Verified 12/03/23 12:54 baclofen AdvReac Confusion Verified 12/03/23 12:54 Opioid HPI Opioid Management Most Recent Pain and Opioid Data: Last Pain Scale 7 12/03/23 13:41 Last MAR Pain Assessment 12/03/23 13:41 Review of Systems ROS Constitutional Denies: fever or chills Ears, nose, mouth, and throat Reports: nose bleeds; Denies: throat pain or nasal congestion Cardiovascular Denies: chest pain Respiratory Denies: shortness of breath or cough Gastrointestinal Denies: nausea or vomiting Musculoskeletal Denies: back pain, neck pain or extremity pain Integumentary/Breast Denies: rash Neurological Denies: headache, numbness in extremities or weakness in extremities Hematologic/Lymphatic Denies: easy bruising or easy bleeding PFSH PFSH Medical History GERD (gastroesophageal reflux disease) ?K21.9 - Gastro-esophageal reflux disease without esophagitis (ICD-10) Anxiety ?F41.9 - Anxiety disorder, unspecified (ICD-10) Seasonal allergies ?J30.2 - Other seasonal allergic rhinitis (ICD-10) Bronchitis ?J40 - Bronchitis, not specified as acute or chronic (ICD-10) COPD (chronic obstructive pulmonary disease) ?J44.9 - Chronic obstructive pulmonary disease, unspecified (ICD-10) Hypertension ?I10 - Essential (primary) hypertension (ICD-10) Surgical History History of appendectomy ?Z90.49 - Acquired absence of other specified parts of digestive tract (ICD- 10) History of hysterectomy ?Z90.710 - Acquired absence of both cervix and uterus (ICD-10) History of left hip replacement ?Z96.642 - Presence of left artificial hip joint (ICD-10) History of right hip replacement ?Z96.641 - Presence of right artificial hip joint (ICD-10) History of total right knee replacement ?Z96.651 - Presence of right artificial knee joint (ICD-10) History of left knee replacement ?Z96.652 - Presence of left artificial knee joint (ICD-10) Family History Mother Family history of CHF (congestive heart failure) Family history of cancer Family history of diabetes mellitus Family history of hypertension Family history of myocardial infarction Brother Family history of cancer Family history of hypertension Social History Within the past year, how often did you have a drink containing alcohol: never Score interpretation: A score less than 3 is consistent with normal alcohol consumption. Smoking status: Light tobacco smoker Non-prescribed substance use: denies use Previous occupational history: disabled Highest level of school completed/degree received: some college, no degree Are you now , , , , never or living with a partner: Little interest or pleasure in doing things: not at all Feeling down, depressed, or hopeless: not at all Feel stressed/tense/nervous/anxious/difficulty sleeping: only a little Exam Narrative Exam Narrative: Gen.: Awake, alert, in no distress Head: Normocephalic, atraumatic ENT: Moist mucous membranes, swelling and tenderness over the nasal bridge with abrasion noted to the nose, no lacerations or bleeding. No septal hematoma. No evidence of dental injury. No hemotympanums. No bony point tenderness of the posterior cervical spine Respiratory: No respiratory distress Back: No bony tenderness of the T-spine or L-spine Extremities: Moves extremities equally, no injuries noted; no bony tenderness Psych: Normal mood and affect Neuro: No focal neuro deficit Skin: Warm, dry, small skin tear noted to the left dorsal forearm Constitutional Vital Signs, click to edit/add: Last Vital Signs Temp 99.6 F 12/03/23 12:50 Pulse 103 H 12/03/23 12:50 Resp 24 H 12/03/23 12:50 BP 180/100 H 12/03/23 12:50 Pulse Ox 96 12/03/23 12:50 O2 Del Method Room Air 12/03/23 12:50 Course Vital Signs Vital signs: Vital Signs Temperature 99.6 F 12/03/23 12:50 Pulse Rate 103 H 12/03/23 12:50 Respiratory Rate 24 H 12/03/23 12:50 Blood Pressure 180/100 H 12/03/23 12:50 Pulse Oximetry 96 12/03/23 12:50 Oxygen Delivery Method Room Air 12/03/23 12:50 Temperature 99.6 F 12/03/23 12:50 Pulse Rate 103 H 12/03/23 12:50 Respiratory Rate 24 H 12/03/23 12:50 Blood Pressure 180/100 H 12/03/23 12:50 Pulse Oximetry 96 12/03/23 12:50 Oxygen Delivery Method Room Air 12/03/23 12:50 MDM - Fall MDM Narrative Medical decision making narrative: Patient requested pain medication in the ER, her son will drive her home. CTs of the head, facial bones and cervical spine are unremarkable with no evidence of acute fracture. Patient encouraged to apply ice to her nose, bacitracin or Neosporin to the abrasion to the nose and to the skin tear to the left forearm. Follow-up with primary care and return to the ER if symptoms change or worsen. SUPERVISED APC VISIT, PHYSICIAN ATTESTATION: Based on the medical record the care appears appropriate. ? Medical Records Attestation: I reviewed the patient's medical records. Imaging Data CT scan - head: Attestation: I have reviewed the pertinent imaging results. Radiologist's impression: ITS Impressions Cervical Spine CT 12/03/23 13:08 IMPRESSION: 1. No acute fracture. 2. Normal alignment of the cervical spine. 3. Prevertebral soft tissues are normal. Electronically authenticated by: TERRENCE RODRIGUEZ Date: 12/03/2023 14:[address] 12/03/23 13:08 IMPRESSION: 1. No acute fractures of the facial bones. Electronically authenticated by: TERRENCE RODRIGUEZ Date: 12/03/2023 14:[address] 12/03/23 13:08 IMPRESSION: There is no evidence of an intracranial hemorrhage, mass lesion or apparent acute infarct. The sinuses are clear. There is no apparent acute skull fracture. The overall appearance has not changed significantly. Electronically authenticated by: MELLY SEO Date: 12/03/2023 13:52 Discharge Plan Discharge Stand Alone Forms: Work/School Release, Portal Instructions Chief Complaint: Fall Clinical Impression: Closed head injury, Contusion of face Patient Disposition: Home, Self-Care Time of Disposition Decision: 14:33 Condition: Good Prescriptions / Home Meds: No Action gabapentin 600 mg tablet 600 mg PO QAM albuterol sulfate 90 mcg/actuation HFA aerosol inhaler 2 inh INHALATION Q6H PRN (Reason: shortness of breath or wheezing) cetirizine 10 mg tablet 10 mg PO DAILY gabapentin 600 mg tablet 1,200 mg PO .qhs isosorbide mononitrate 60 mg tablet extended release 24 hr 60 mg PO .q24 metoprolol succinate 100 mg tablet extended release 24 hr 100 mg PO Q12H metoclopramide HCl 10 mg tablet 10 mg PO .COMPLEX Rx Instructions: 10 mg orally before meals at at bedtime; pantoprazole 40 mg tablet,delayed release (DR/EC) 40 mg PO DAILY potassium chloride 10 mEq tablet,ER particles/crystals 10 meq PO BID quetiapine 50 mg tablet 50 mg PO .qhs tizanidine 4 mg tablet 4 mg PO Q12H PRN (Reason: muscle spasticity) venlafaxine 150 mg capsule,extended release 24hr 150 mg PO DAILY venlafaxine 75 mg capsule,extended release 24hr 75 mg PO DAILY hydrocodone-acetaminophen 5-325 mg tablet 1 tab PO Q6H PRN (Reason: pain) 3 Days Qty: 12 0RF Rx Instructions: DX: M54.5 amoxicillin-pot clavulanate 875-125 mg tablet 1 tab PO Q12H Qty: 20 0RF Print Language: Estonian Instructions: Head Injury (ED), Facial Contusion (ED) Referrals: Bill Sanderson MD [Primary Care Provider] - 1 week
[2023-12-03] MEDS: ADACEL DIPH,PERTUSS(ACELL),TET VAC/PF 0.5 ML ADULT SYRINGE IM (13:40)
[2023-12-03] MEDS: OXYCODONE HCL/ACETAMINOPHEN 5MG/325MG 1 TAB PO (13:41)
[2023-12-03 14:38] VITALS: BP 148/76; PULSE 75; O2SAT 99
== END 2023-12-03 14:39 | disposition home or self-care (01) ==
PROVIDERS: Emergency Provider Emergency Medicine; PCP Family Medicine
DX: S00.83XA Contusion of other part of head, initial encounter (principal); S09.8XXA Other specified injuries of head, initial encounter; Z23 Encounter for immunization; F17.200 Nicotine dependence, unspecified, uncomplicated; W01.198A Fall on same level from slipping, tripping and stumbling with subsequent striking against other object, initial encounter
CPT/HCPCS: 70450; 70486; 72125; 90471; 90715; 99284

== ENCOUNTER 2024-06-26 11:35 | Outpatient (OUT) | payer MEDICARE, OTHER, SELFPAY ==
[2024-06-26 12:03] LABS: Basophils Absolute Auto 0.1 10^3/uL (0.0-0.1); Basophils Percent Auto 1.1 % (0.2-2.0); Eosinophils Absolute Auto 0.1 10^3/uL (0.0-0.7); Eosinophils Percent Auto 1.7 % (0.9-7.0); Hemoglobin 14.2 g/dL (12.0-16.0); Immature Granulocytes Abs Auto 0.02 10^3/uL (0.00-0.03); Immature Granulocytes Pct Auto 0.2 % (0.0-0.5); Lymphocytes Absolute Auto 1.8 10^3/uL (1.2-3.8); Lymphocytes Percent Auto 21.6 % (20.5-60.0); Mean Corpuscular HGB Conc 32.3 g/dL (29.9-35.2); Mean Corpuscular Hemoglobin 32.4 pg (26.7-34.0); Mean Corpuscular Volume 100.5 fL (81.0-99.0); Monocytes Absolute Auto 0.5 10^3/uL (0.3-0.8); Monocytes Percent Auto 5.8 % (1.7-12.0); Neutrophils Absolute Auto 5.9 10^3/uL (1.4-6.5); Neutrophils Percent Auto 69.6 % (43.0-75.0); Platelet Count 250 10^3/uL (150-450); Red Blood Count 4.38 10^6/uL (4.20-5.40); Red Cell Distribution Width 13.4 % (11.0-15.0); White Blood Count 8.5 10^3/uL (4.0-11.0)
[2024-06-26 12:11] LABS: Estimated Average Glucose 100 mg/dL; Glycohemoglobin A1C 5.1 % (4.5-6.2)
[2024-06-26 13:11] LABS: Alanine Aminotransferase 25 U/L (14-59); Albumin Globulin Ratio 1.3; Albumin Level 4.2 g/dL (3.4-5.0); Alkaline Phosphatase 109 U/L (46-116); Aspartate Amino Transferase 20 U/L (15-37); BUN Creatinine Ratio 22.1; Bilirubin Total 0.4 mg/dL (0.2-1.0); Calcium 9.4 mg/dL (8.5-10.1); Carbon Dioxide 17.9 mmol/L (21.0-32.0); Chloride 108 mmol/L (98-107); Chol HDL Ratio 4.3; Cholesterol 232 mg/dL (<=200); Estimated GFR (African America 36 (>=60 mL/min/1.73m^2); Estimated GFR (Non-African Ame 30 (>=60 mL/min/1.73m^2); Free T3 2.16 pg/mL (2.18-3.98); Globulin 3.3 g/dL; Glucose 119 mg/dL (74-106); HDL Cholesterol 54 mg/dL (40-60); Potassium 3.9 mmol/L (3.5-5.1); Sodium 141 mmol/L (136-145); Thyroid Stimulating Hormone 1.104 uIU/mL (0.358-3.740); Total Protein 7.5 g/dL (6.4-8.2); Triglycerides 178 mg/dL (<=150); VLDL CHOLESTEROL 35.6 mg/dL
== END 2024-06-26 11:36 | disposition home or self-care (01) ==
LOC: LAB 11:37
PROVIDERS: PCP Family Medicine; Visit Provider Family Medicine
DX: E78.5 Hyperlipidemia, unspecified (principal); I10 Essential (primary) hypertension; J44.9 Chronic obstructive pulmonary disease, unspecified; K21.9 Gastro-esophageal reflux disease without esophagitis; R73.09 Other abnormal glucose; D64.9 Anemia, unspecified; E55.9 Vitamin D deficiency, unspecified
CPT/HCPCS: 36415; 80053; 80061; 82306; 83036; 83540; 84436; 84443; 84481; 85025

== ENCOUNTER 2024-09-08 08:36 | Emergency (ER) | payer MEDICARE, OTHER, SELFPAY ==
[2024-09-08] VITALS (26 sets, daily range): BP systolic 142–186; BP diastolic 74–102; PULSE 88–101; TEMP 36.8; O2SAT 90–99; BMI 29.5
--- OUTSIDE RECORDS SUMMARY | 2024-09-08 08:42 | XMS_ITS ---
Author Organization [facility] Care Team Providers Care Saddle Mechanic Name Role Phone LEVI SHINE Unavailable Unavailable Allergies and adverse reactions Code CodeSystem Substance Reaction Severity StartDate Concern Status 07505 RXNORM Vancomycin Unknown 06/16/[address] NSAIDs Severe Unknown active 7052 RXNORM Morphine Moderate 10/14/2015 active 1191 RXNORM Aspirin Unknown Unknown active Ancef Moderate Unknown active Care Team Name Role Address Phone Organization Dates LEVI SHINE PCP [address] [place], [address], [place] (Office): : [facility] 01/06/2022 - 01/26/2022 Immunizations Immunization Status Vaccine Details Vaccine Code CodeSystem Date Notes Influenza completed Influenza, split virus, trivalent, injectable, contains preservative 141 CVX created date: 11/18/2019 administer ed date: 12/01/2017 TB 2 Step Mantoux Skin Test completed tuberculin skin test; unspecified formulation Given Right Forearm Step 2 of Multi-step with next step required 98 CVX created date: 01/15/2022 consent date: 01/15/2022 administer ed date: 01/14/2022 TB 2 Step Mantoux Skin Test completed tuberculin skin test; unspecified formulation lotNumber: [id number] expiry: 04/01/2023 Mfg: par paharmaceutical Given 0.1 ml Right Forearm intradermally Step 1 of Multi-step with next step required 98 CVX created date: 01/07/2022 consent date: 01/07/2022 administer ed date: 01/07/2022 TB 2 Step Mantoux Skin Test completed tuberculin skin test; unspecified formulation lotNumber: [id number] expiry: 01/30/2022 Mfg: aplisol Given 0.1 ml Right Forearm intradermally Step 2 of Multi-step with next step required 98 CVX created date: 06/25/2021 consent date: 06/25/2021 administer ed date: 06/25/2021 TB 2 Step Mantoux Skin Test completed tuberculin skin test; unspecified formulation lotNumber: [id number] expiry: 01/30/2022 Mfg: PAR Hobson Given 0.1 ml Left Forearm intradermally Step 1 of Multi-step with next step required 98 CVX created date: 06/18/2021 consent date: 06/18/2021 administer ed date: 06/18/2021 Step 1 Read 06/20 by ABRAHAN TB 2 Step Mantoux Skin Test completed tuberculin skin test; unspecified formulation lotNumber: [id number] expiry: 11/27/2020 Mfg: par pahramceutical Given 0.1 ml Right Forearm intradermally Step 2 of Multi-step with next step required 98 CVX created date: 12/25/2019 consent date: 12/25/2019 administer ed date: 11/24/2019 Educated by Melody Gomez RN on 11/17/2019 Read 11/26/19 by BRITTANY TB 2 Step Mantoux Skin Test completed tuberculin skin test; unspecified formulation lotNumber: [id number] expiry: 05/30/2020 Mfg: PAR pharmacutical Given 0.1 ml Left Forearm intradermally Step 1 of Multi-step with next step required 98 CVX created date: 11/22/2019 consent date: 11/22/2019 administer ed date: 11/17/2019 Read 11/19/19 by BRITTANY [id number] completed pneumococcal polysaccharide vaccine, 23 valent 33 CVX created date: 06/16/2021 administer ed date: 01/15/2015 [id number] completed pneumococcal polysaccharide vaccine, 23 valent 33 CVX created date: 06/16/2021 administer ed date: 02/21/2013 Pneumovax 13 completed pneumococcal conjugate vaccine, 13 valent 133 CVX created date: 11/18/2019 administer ed date: 12/02/2015 SARS-COV-2 (COVID-19) completed SARS-COV-2 (COVID-19) vaccine, mRNA, spike protein, LNP, preservative free, 30 mcg/0.3mL dose Mfg: [employer] Systems COVID 19 Step 2 of Multi-step with next step required 208 CVX created date: 06/16/2021 administer ed date: 08/16/2020 SARS-COV-2 (COVID-19) completed SARS-COV-2 (COVID-19) vaccine, mRNA, spike protein, LNP, preservative free, 30 mcg/0.3mL dose Mfg: [employer] COVID 19 Step 1 of Multi-step with next step required 208 CVX created date: 06/16/2021 administer ed date: 07/26/2020 SARS-COV-2 (COVID-19)(Dose 3) completed SARS-COV-2 (COVID-19) vaccine, vector non-replicating, recombinant spike protein-Ad26, preservative free, 0.5 mL lotNumber: [id number] expiry: 08/30/2021 Mfg: [employer] COVID 19 Given 0.3 ml Right Deltoid intramuscularly 212 CVX created date: 06/24/2021 consent date: 06/24/2021 administer ed date: 06/24/2021 Educated by Nohemi Nugent RN [facility] on 06/24/2021 Influenza-High Dose Quadrivalent completed Influenza, high-dose, split virus, quadrivalent, injectable, preservative free lotNumber: [id number] expiry: 07/14/2022 Mfg: serBiothera PTY LTD Given 0.5 ml Right Deltoid intramuscularly 197 CVX created date: 01/12/2022 consent date: 01/12/2022 administer ed date: 01/12/2022 verbal consent given [employer] Bivalent Booster 1 completed SARS-COV-2 (COVID-19) vaccine, mRNA, spike protein, LNP, bivalent, preservative free, 30 mcg/0.3 mL dose, estela-sucrose formulation lotNumber: [id number] expiry: 02/15/2022 Mfg: BackupAgent Covid-19 Bivalent Given 0.3 ml Left Deltoid intramuscularly 300 CVX created date: 01/12/2022 consent date: 01/12/2022 administer ed date: 01/12/2022 verbal consent given Mental Status Section Date Assessment Total Score Description 01/26/2022 BIMS 15 cognitively int act CAM 0 No delirium ind icated PHQ-9 05 mild depression 01/10/2022 BIMS 15 cognitively int act CAM 0 No delirium ind icated PHQ-9 05 mild depression Problems Problem # Description Date of onset Resolved Date Code CodeSystem Concern Status 1 PERSONAL HISTORY OF COVID-19 01/10/[address] active 2 VITAMIN D DEFICIENCY, UNSPECIFIED 01/10/[address] active 3 AFTERCARE FOLLOWING JOINT REPLACEMENT SURGERY 01/07/[address] active 4 UNILATERAL PRIMARY OSTEOARTHRITIS, RIGHT KNEE 01/07/[address] active 5 BENIGN NEOPLASM OF UNSPECIFIED ADRENAL GLAND 06/17/[address] active 6 DYSPHAGIA, OROPHARYNGEAL PHASE 06/17/[address] active 7 EFFUSION, UNSPECIFIED KNEE 06/17/[address] active 8 NEED FOR ASSISTANCE WITH PERSONAL CARE 06/17/[address] active 9 OTHER ABNORMALITIES OF GAIT AND MOBILITY 06/17/[address] active 10 OTHER INTERVERTEBRAL DISC DEGENERATION, LUMBAR REGION 06/17/[address] active 11 PERSONAL HISTORY OF PULMONARY EMBOLISM 06/17/[address] active 12 SYNCOPE AND COLLAPSE 06/17/[address] active 13 UNILATERAL PRIMARY OSTEOARTHRITIS, LEFT KNEE 11/18/[address] active 14 AFTERCARE FOLLOWING JOINT REPLACEMENT SURGERY 11/17/1906/16/[address] completed 15 ENCOUNTER FOR PROPHYLACTIC MEASURES, UNSPECIFIED 11/17/[address] active 16 MORBID (SEVERE) OBESITY DUE TO EXCESS CALORIES 11/17/[address] active 17 UNSPECIFIED OSTEOARTHRITIS, UNSPECIFIED SITE 11/17/[address] active 18 DIFFICULTY IN WALKING, NOT ELSEWHERE CLASSIFIED 10/13/[address] active 19 MUSCLE WEAKNESS (GENERALIZED) 10/13/[address] active Reason for Referral No Reasons for Referral Entered Social History Social History Observation Description Start Date End Date Code Code System Current Smoking Status Tobacco smoking consumption unknown 588659007 SNOMED CT Sex Assigned At Female 1955 88315-7 [facility] Gender Identity Vital Signs Code Code System Vitals Name Values and Units Timing Information 14417-1 [facility] Pain Level Value=10.0 01/26/2022 9279-1 [facility] Respiratory Rate Value=18.0 Units=/m in 01/25/2022 8462-4 [facility] Blood Pressure-Diastolic Value=64 Un its=mmHg 01/25/2022 8480-6 [facility] Blood Pressure-Systolic Yozef=273 Un its=mmHg 01/25/2022 8310-5 [facility] Body Temperature Value=98.2 Units= F 01/25/2022 8867-4 [facility] Heart rate Value=64.0 Units=/min 88160-0 [facility] O2 % BldC Oximetry Value=99.0 Units= % 01/25/2022 27088-6 [facility] Weight Vbjlq=152.9 Units=Lbs 8302-2 [facility] Height Value=69.0 Units=Inches 11/17/2019
--- OUTSIDE RECORDS SUMMARY | 2024-09-08 08:42 | XMS_ITS | Clinical Summary ---
Author Organization [facility] Healthcare Address [address] [place] [address] Care Team Providers Care Java Web Application Developer Name Role Phone Unavailable Primary Care Provider Unavailabl e Social History Tobacco Use Types Packs/Day Years Used Date Smoking Tobacco: Never Assessed Comments Unknown Sex and Gender Information Value Date Recorded Sex Assigned at Not on file Legal Sex Female 8:35 PM EDT Gender Identity Not on file Sexual Orientation Not on file Plan of Treatment Not on file
--- OUTSIDE RECORDS SUMMARY | 2024-09-08 08:43 | XMS_ITS | Encounter Summary ---
Author Organization [facility] Address [address] [place] [address] Care Team Providers Care Diesel Locomotive Firer Name Role Phone Bill Sanderson MD Primary Care Provider + Trisha Trinity Pawan THEATRE INSTRUCTOR Unavailable +[phone] Source Comments In the event this information is protected by the Federal Confidentiality of Alcohol and Drug AbusePatient Records regulations: The Federal rules restrict any use of the information to criminally investigate or prosecute any alcohol or drug abuse patient.[facility] Encounter Details Date Type Department Care Team (Late st Contact Info) Description 2022 [place] [address] Provider, [facility] Medicare Coverage of Physical Exams Social History Tobacco Use Types Packs/Day Years Used Date Smoking Tobacco: Former Cigarettes 2 34 1 04/02/1978 - 01/31/2013 Smokeless Tobacco: Never Comments:11/27/13- no cigs i n over a month Alcohol Use Standard Drinks/Week Comments Yes 0 (1 standard drink = 0.6 oz pur e alcohol) rare Comments No Sex and Gender Information Value Date Recorded Sex Assigned at Not on file Legal Sex Female 9:49 AM EST Gender Identity Not on file Sexual Orientation Not on file documented as of this encounter Functional Status * Are you deaf or do you have serious difficulty hearing? Answer Date of Assessment Author No 12/31/2013 10:59 AM Stas Robertsda * Are you blind or do you have serious difficulty seeing, even when wearing glasses? Answer Date of Assessment Author No 12/31/2013 10:59 AM NEIDA Albert, Saeda * Do you have serious difficulty walking or climbing stairs? Answer Date of Assessment Author Yes 12/31/2013 10:59 AM NEIDA Albert, Saeda * Do you have difficulty dressing or bathing? Answer Date of Assessment Author No 12/31/2013 10:59 AM NEIDA Albert, Saeda * Because of a physical, mental, or emotional condition, do you have difficulty doing errands alone such as visiting a doctor's office or shopping? Answer Date of Assessment Author No 12/31/2013 10:59 AM Stas Robertsda documented as of this encounter Mental Status * Because of a physical, mental, or emotional condition, do you have serious difficulty concentrating, remembering, or making decisions? Answer Entry Date Author No 12/31/2013 10:59 AM NEIDA Albert, Richard documented in this encounter Plan of Treatment Not on file documented as of this encounter Visit Diagnoses Not on filedocumented in this encounter Care Teams Diesel Locomotive Firer Relationship Specialty Start Date End Date Bill Sanderson MD PCP - General Family Medicine 05/19/13 Trinity Rico CNP [address] [place] [address] Referring Internal Medicine 07/08/20 documented as of this encounter
--- OUTSIDE RECORDS SUMMARY | 2024-09-08 08:43 | XMS_ITS | Referral Summary ---
Author Organization [facility] Address [address] [address] Care Team Providers Care [employer] Dean Name Role Phone Unavailable Primary Care Provider Unavailabl e Social History Tobacco Use Types Packs/Day Years Used Date Smoking Tobacco: Never Assessed Sex and Gender Information Value Date Recorded Sex Assigned at Not on file Gender Identity Not on file Sexual Orientation Not on file Last Filed Vital Signs Vital Sign Reading Time Taken Comments Blood Pressure 131/88 05/03/2020 3:17 PM EST Pulse 121 05/03/2020 3:17 PM EST Temperature 37.1 C (98.8 F) 05/03/2020 3:17 PM EST Respiratory Rate - - Oxygen Saturation 94% 07/18/2018 11:52 AM EDT Inhaled Oxygen Concentration - - Weight 97.5 kg (215 lb) 05/05/2020 8:08 AM EST Height 175.3 cm (5' 9 ) 06/17/2020 3:11 PM EDT Body Mass Index 31.75 05/05/2020 8:07 AM EST Plan of Treatment Not on file
--- OUTSIDE RECORDS SUMMARY | 2024-09-08 08:44 | XMS_ITS | Clinical Summary ---
Author Organization [facility] 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 Role Phone Unavailable Primary Care Provider Unavailabl e Allergies Active Allergy Reactions Criticality Noted Date Comments Morphine Hives 07/30/2013 Itching, vomiting Nsaids Anaphylaxis High 07/30/2013 Medications dorzolamide (TRUSOPT) 2 % ophthalmic solution 07/11/2013 Active temazepam (RESTORIL) 30 MG capsule 07/17/2013 Active brimonidine (ALPHAGAN) 0.2 % ophthalmic solution 07/11/2013 Active prednisoLONE acetate (PRED FORTE) 1 % ophthalmic suspension 06/28/2013 Active VENTOLIN HFA 108 (90 BASE) MCG/ACT inhaler 06/05/2013 Act lamonte TUDORZA PRESSAIR 400 MCG/ACT AEPB 05/01/2013 Ac tive ALPRAZolam (XANAX) 1 MG tabletIndication s:Anxiety Take 1 tablet by mouth 3 times daily as needed for Sleep for 90 doses. 90 tablet 3 07/30/2013 Active Active Problems No known active problems Family History Medical History Relation Name Comments Cancer Father Cervical Cancer Mother Pacemaker Mother Emphysema Paternal Uncle Relation Name Status Comments Father Mother Alive Paternal Uncle Social History Tobacco Use Types Packs/Day Years Used Date Smoking Tobacco: Every Day Alcohol Use Standard Drinks/Week Comments Yes 0 (1 standard drink = 0.6 oz pur e alcohol) Comments No Sex and Gender Information Value Date Recorded Sex Assigned at Not on file Legal Sex Female 1:33 AM EST Gender Identity Not on file Sexual Orientation Not on file Last Filed Vital Signs Vital Sign Reading Time Taken Comments Blood Pressure 134/68 09/23/2013 3:52 PM EDT Pulse - - Temperature - - Respiratory Rate - - Oxygen Saturation - - Inhaled Oxygen Concentration - - Weight 101.2 kg (223 lb) 09/23/2013 3:52 PM EDT Height 175.3 cm (5' 9 ) 09/23/2013 3:52 PM EDT Body Mass Index 32.93 09/23/2013 3:52 PM EDT Plan of Treatment Not on file
--- NOTE | 2024-09-08 08:47 | CT_ITS ---
[address] [address] Patient Name: GABRIELA GODINEZ MRN: [id number] date: 1955 Sex: F Assigned Patient Location: ER Current Patient Location: [facility] Accession/Order Number: [id number] Exam Date: 09/08/2024 10:50 Report Date: 09/08/2024 11:07 At the request of: PITO BUTCHER MD Procedure: CT cervical spine wo con Unenhanced head CT TECHNIQUE: Contiguous axial imaging of the head. The CT exam was performed using one or more the following dose reduction techniques: Automated exposure control, adjustment of the MA and/or Kv according to patient size, or use of the iterative reconstruction technique. COMPARISON: None HISTORY: VENTRICLES: Within normal limits ATROPHY: None BRAIN PARENCHYMA: Adequate hinds-white matter differentiation identified. HEMORRHAGE: None HERNIATION: No mass effect or herniation INFARCTION: No recent vascular distribution infarction is seen. EXTRA-AXIAL FLUID COLLECTIONS None MIDBRAIN: Unremarkable JAD: Unremarkable MEDULLA: Unremarkable SINUSES: Unremarkable ORBITS: Grossly unremarkable MASTOIDS: Unremarkable BONY STRUCTURES Intact ADDITIONAL FINDINGS: CT/CT head/brain wo con IMPRESSION: No acute findings. CT Cervical Spine withoutcontrast TECHNIQUE: Axial imaging with 2-D and 3-D reconstruction. The CT exam was performed using one or more the following dose reduction techniques: Automated exposure control, adjustment of the MA and/or Kv according to patient size, or use of the iterative reconstruction technique. COMPARISON: None HISTORY: POST SURGERY CHANGES: None BONY ALIGNMENT: Straightening with mild degenerative listhesis BONY SPINAL CANAL: Patent central bony canal FRACTURE: None BONY LESIONS: None SOFT TISSUES: Unremarkable DEGENERATIVE CHANGES: Enhancement cervical degenerative changes. LUNG APICES: Unremarkable ADDITIONAL FINDINGS: Calcified plaquing of carotid bifurcations. IMPRESSION: No acute process CT Chest without contrast TECHNIQUE: Axial imaging with 2-D reconstruction. The CT exam was performed using one or more the following dose reduction techniques: Automated exposure control, adjustment of the MA and/or Kv according to patient size, or use of the iterative reconstruction technique. History: Concern for syncopal episode. Neck pain. Left cheek bruising. Right shoulder pain. COMPARISON: None THYROID: Unremarkable TRACHEA AND BRONCHI: Patent ESOPHAGUS: Unremarkable. HEART: Within normal limits PERICARDIAL EFFUSION: None CORONARY ARTERY CALCIFICATION: Present MEDIASTINUM: No adenopathy. No pneumoperitoneum. No mediastinal hematoma. PULMONARY ABRAN: No hilar mass or adenopathy is seen. THORACIC AORTA Unremarkable LUNG NODULE None LUNGS: Left basilar linear scarring. No new acute lung findings. PLEURAL EFFUSION: None PNEUMOTHORAX: No pneumothorax seen. CHEST WALL: No abnormality AXILLA:Unremarkable BONY STRUCTURES similar less than 50% T11 compression fracture. Unchanged and chronic. Multiple old left rib fractures. T5 superior endplate compression with mild height loss. UPPER ABDOMEN: Unchanged up to 4 cm left adrenal lesion. IMPRESSION: No acute traumatic chest findings. No acute cardiopulmonary disease. Chronic fractures. Stable left adrenal lesion. Impression dictated by: Pito Barrientos M.D. 09/08/2024 11:07 AM Dictation Location: [facility] Electronically authenticated by: [id number] Y Date: 09/08/2024 11:07
--- NOTE | 2024-09-08 08:47 | XR_ITS ---
The [place] [id number] Patient Name: GABRIELA GODINEZ MRN: [id number] date: 1955 Sex: F Assigned Patient Location: ED.MAIN Current Patient Location: ED.MAIN Accession/Order Number: [id number] Exam Date: 09/08/2024 11:08 Report Date: 09/08/2024 11:11 At the request of: PITO BUTCHER MD Procedure: XR shoulder RT min 2V 4 views both knees HISTORY: Syncopal episode. Bilateral knee pain shoulder pain Bilateral knee arthroplasties. No hardware failure. No acute displaced fracture. No joint effusion. Unremarkable soft tissues. Benign soft tissue calcification. Atherosclerosis. XR/XR knee YURI 4V IMPRESSION: Unremarkable bilateral knee arthroplasties. No acute displaced fracture. 3 views right shoulder Diffuse osteopenia. Mild degeneration. Adequate bony alignment. No acute fracture. Surgical clips. IMPRESSION: No acute displaced fracture. Diffuse osteopenia and degenerative change. Impression dictated by: Pito Barrientos M.D. 09/08/2024 11:11 AM Dictation Location: [facility] Electronically authenticated by: [id number] Y Date: 09/08/2024 11:11
--- NOTE | 2024-09-08 08:47 | CT_ITS ---
[address] [address] Patient Name: GABRIELA GODINEZ MRN: [id number] date: 1955 Sex: F Assigned Patient Location: ER Current Patient Location: .[facility] Accession/Order Number: [id number] Exam Date: 09/08/2024 10:50 Report Date: 09/08/2024 11:07 At the request of: PITO BUTCHER MD Procedure: CT cervical spine wo con Unenhanced head CT TECHNIQUE: Contiguous axial imaging of the head. The CT exam was performed using one or more the following dose reduction techniques: Automated exposure control, adjustment of the MA and/or Kv according to patient size, or use of the iterative reconstruction technique. COMPARISON: None HISTORY: VENTRICLES: Within normal limits ATROPHY: None BRAIN PARENCHYMA: Adequate hinds-white matter differentiation identified. HEMORRHAGE: None HERNIATION: No mass effect or herniation INFARCTION: No recent vascular distribution infarction is seen. EXTRA-AXIAL FLUID COLLECTIONS None MIDBRAIN: Unremarkable JAD: Unremarkable MEDULLA: Unremarkable SINUSES: Unremarkable ORBITS: Grossly unremarkable MASTOIDS: Unremarkable BONY STRUCTURES Intact ADDITIONAL FINDINGS: CT/CT cervical spine wo con IMPRESSION: No acute findings. CT Cervical Spine withoutcontrast TECHNIQUE: Axial imaging with 2-D and 3-D reconstruction. The CT exam was performed using one or more the following dose reduction techniques: Automated exposure control, adjustment of the MA and/or Kv according to patient size, or use of the iterative reconstruction technique. COMPARISON: None HISTORY: POST SURGERY CHANGES: None BONY ALIGNMENT: Straightening with mild degenerative listhesis BONY SPINAL CANAL: Patent central bony canal FRACTURE: None BONY LESIONS: None SOFT TISSUES: Unremarkable DEGENERATIVE CHANGES: Enhancement cervical degenerative changes. LUNG APICES: Unremarkable ADDITIONAL FINDINGS: Calcified plaquing of carotid bifurcations. IMPRESSION: No acute process CT Chest without contrast TECHNIQUE: Axial imaging with 2-D reconstruction. The CT exam was performed using one or more the following dose reduction techniques: Automated exposure control, adjustment of the MA and/or Kv according to patient size, or use of the iterative reconstruction technique. History: Concern for syncopal episode. Neck pain. Left cheek bruising. Right shoulder pain. COMPARISON: None THYROID: Unremarkable TRACHEA AND BRONCHI: Patent ESOPHAGUS: Unremarkable. HEART: Within normal limits PERICARDIAL EFFUSION: None CORONARY ARTERY CALCIFICATION: Present MEDIASTINUM: No adenopathy. No pneumoperitoneum. No mediastinal hematoma. PULMONARY ABRAN: No hilar mass or adenopathy is seen. THORACIC AORTA Unremarkable LUNG NODULE None LUNGS: Left basilar linear scarring. No new acute lung findings. PLEURAL EFFUSION: None PNEUMOTHORAX: No pneumothorax seen. CHEST WALL: No abnormality AXILLA:Unremarkable BONY STRUCTURES similar less than 50% T11 compression fracture. Unchanged and chronic. Multiple old left rib fractures. T5 superior endplate compression with mild height loss. UPPER ABDOMEN: Unchanged up to 4 cm left adrenal lesion. IMPRESSION: No acute traumatic chest findings. No acute cardiopulmonary disease. Chronic fractures. Stable left adrenal lesion. Impression dictated by: Pito Barrientos M.D. 09/08/2024 11:07 AM Dictation Location: [place] [address] Electronically authenticated by: [id number] Y Date: 09/08/2024 11:07
--- NOTE | 2024-09-08 08:48 | XR_ITS ---
The [place] [id number] Patient Name: GABRIELA GODINEZ MRN: [id number] date: 1955 Sex: F Assigned Patient Location: ED.MAIN Current Patient Location: ED.MAIN Accession/Order Number: [id number] Exam Date: 09/08/2024 11:08 Report Date: 09/08/2024 11:11 At the request of: PITO BUTCHER MD Procedure: XR shoulder RT min 2V 4 views both knees HISTORY: Syncopal episode. Bilateral knee pain shoulder pain Bilateral knee arthroplasties. No hardware failure. No acute displaced fracture. No joint effusion. Unremarkable soft tissues. Benign soft tissue calcification. Atherosclerosis. XR/XR shoulder RT min 2V IMPRESSION: Unremarkable bilateral knee arthroplasties. No acute displaced fracture. 3 views right shoulder Diffuse osteopenia. Mild degeneration. Adequate bony alignment. No acute fracture. Surgical clips. IMPRESSION: No acute displaced fracture. Diffuse osteopenia and degenerative change. Impression dictated by: Pito Barrientos M.D. 09/08/2024 11:11 AM [facility]ictation [facility] Electronically authenticated by: [id number] Y Date: 09/08/2024 11:11
--- NOTE | 2024-09-08 08:48 | CT_ITS ---
[address] [address] Patient Name: GABRIELA GODINEZ MRN: [id number] date: 1955 Sex: F Assigned Patient Location: ER Current Patient Location: [facility] Accession/Order Number: [id number] Exam Date: 09/08/2024 10:50 Report Date: 09/08/2024 11:07 At the request of: PITO BUTCHER MD Procedure: CT cervical spine wo con Unenhanced head CT TECHNIQUE: Contiguous axial imaging of the head. The CT exam was performed using one or more the following dose reduction techniques: Automated exposure control, adjustment of the MA and/or Kv according to patient size, or use of the iterative reconstruction technique. COMPARISON: None HISTORY: VENTRICLES: Within normal limits ATROPHY: None BRAIN PARENCHYMA: Adequate hinsd-white matter differentiation identified. HEMORRHAGE: None HERNIATION: No mass effect or herniation INFARCTION: No recent vascular distribution infarction is seen. EXTRA-AXIAL FLUID COLLECTIONS None MIDBRAIN: Unremarkable JAD: Unremarkable MEDULLA: Unremarkable SINUSES: Unremarkable ORBITS: Grossly unremarkable MASTOIDS: Unremarkable BONY STRUCTURES Intact ADDITIONAL FINDINGS: CT/CT chest wo con IMPRESSION: No acute findings. CT Cervical Spine withoutcontrast TECHNIQUE: Axial imaging with 2-D and 3-D reconstruction. The CT exam was performed using one or more the following dose reduction techniques: Automated exposure control, adjustment of the MA and/or Kv according to patient size, or use of the iterative reconstruction technique. COMPARISON: None HISTORY: POST SURGERY CHANGES: None BONY ALIGNMENT: Straightening with mild degenerative listhesis BONY SPINAL CANAL: Patent central bony canal FRACTURE: None BONY LESIONS: None SOFT TISSUES: Unremarkable DEGENERATIVE CHANGES: Enhancement cervical degenerative changes. LUNG APICES: Unremarkable ADDITIONAL FINDINGS: Calcified plaquing of carotid bifurcations. IMPRESSION: No acute process CT Chest without contrast TECHNIQUE: Axial imaging with 2-D reconstruction. The CT exam was performed using one or more the following dose reduction techniques: Automated exposure control, adjustment of the MA and/or Kv according to patient size, or use of the iterative reconstruction technique. History: Concern for syncopal episode. Neck pain. Left cheek bruising. Right shoulder pain. COMPARISON: None THYROID: Unremarkable TRACHEA AND BRONCHI: Patent ESOPHAGUS: Unremarkable. HEART: Within normal limits PERICARDIAL EFFUSION: None CORONARY ARTERY CALCIFICATION: Present MEDIASTINUM: No adenopathy. No pneumoperitoneum. No mediastinal hematoma. PULMONARY ABRAN: No hilar mass or adenopathy is seen. THORACIC AORTA Unremarkable LUNG NODULE None LUNGS: Left basilar linear scarring. No new acute lung findings. PLEURAL EFFUSION: None PNEUMOTHORAX: No pneumothorax seen. CHEST WALL: No abnormality AXILLA:Unremarkable BONY STRUCTURES similar less than 50% T11 compression fracture. Unchanged and chronic. Multiple old left rib fractures. T5 superior endplate compression with mild height loss. UPPER ABDOMEN: Unchanged up to 4 cm left adrenal lesion. IMPRESSION: No acute traumatic chest findings. No acute cardiopulmonary disease. Chronic fractures. Stable left adrenal lesion. Impression dictated by: Pito Barrientos M.D. 09/08/2024 11:07 AM Dictation Location: [place] [address] Electronically authenticated by: [id number] Y Date: 09/08/2024 11:07
--- NOTE | 2024-09-08 08:48 | ECG_ITS ---
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 Measurements Intervals [place] Rate: 96 P: 68 CA: 162 QRS: 53 QRSD: 68 T: 40 QT: 338 QTc: 391 Interpretive Statements 1100 Sinus rhythm 9110 normal ECG Compared to ECG 04/28/2023 13:47:42 Premature supraventricular complexes no longer present Electronically Signed On 09-08-2024 21:52:26 EDT by GELACIO SHORT M.D.
--- NOTE | 2024-09-08 08:53 | ED.GENADUL1 ---
HPI HPI - General Adult General Chief complaint: Syncope Stated complaint: FALL Time Seen by Provider: 09/08/24 08:46 Source: patient Mode of arrival: ambulance Limitations: no limitations History of Present Illness HPI narrative: Patient is a 69-year-old female who came in by EMS today after she had fallen last evening around 6:30 PM. Patient stated secondary to having severe shoulder pain, she was not able to get herself off the ground. Patient laid on the ground all night. Patient has urinated herself. EMS brought patient in. Patient was not complaining of any type of headache or neck pain when EMS initially arrived. Patient initially had no neck pain. When patient arrives, she is complaining of neck pain, right shoulder pain, bilateral knee pain, anterior chest wall pain. Patient said that she ordered [employer] last evening. Patient was in the house, she went to spin and turn to put her pizza/[employer] order on the table and patient says she fell down. She does not remember falling down. She is uncertain how long she was on the ground before she woke up. Patient says that she takes no blood thinners. Patient arrives with no cervical collar. Patient initially told EMS she had no headache or neck pain. Patient's having headache, neck pain, right shoulder pain, bilateral knee pain, anterior chest wall pain. Patient has rib fractures from the past. Patient states that she laid on the ground all night, and it took her several hours before she was able to crawl to a phone and call 911. Patient daughter and daughter's are at bedside. Patient is stiff and sore everywhere. All systems are negative except as noted/marked. All systems reviewed and otherwise negative. Patient did smell of urine when she got here, she was lying in urine when EMS arrived. Nurses note and vital signs reviewed and patient is not hypoxic. Patient is alert and orient x 3, GCS of 15. General: The patient appears well and in no apparent distress. Patient is resting comfortably on cart. Patient is not toxic, lethargic, or listless Skin: Warm, dry, no pallor noted. There is no rash noted. No petechiae, purpura. Head: Normocephalic, atraumatic, patient initially in cervical collar secondary to mild to moderate soft tissue cervical tenderness palpation. Patient remained in the cervical collar. Eye: Normal conjunctiva, no drainage, EOMI. PERRL. Patient pupils are 4/2, equal, bilateral. Ears, Nose, Mouth, and Throat: oral mucosa is moist. No dentition injury. Nares patent. Mouth without vesicles. Cardiovascular: Regular Rate and Rhythm, no murmur, gallop, rub. Patient has moderate tenderness to palpation to bilateral anterior chest wall, no lateral chest wall tenderness palpation. Respiratory: Patient is in no distress, no accessory muscle use, lungs are clear to auscultation, no wheezing, rales or rhonchi Back: Diffuse bilateral paralumbar soft tissue tenderness to palpation, moderate pain. No midline thoracic lumbar tenderness to palpation. No bilateral the rest of the back is posterior chest wall pain. Non-tender, no CVA tenderness bilaterally to percussion. No CT LS midline pain. No signs of ecchymosis, skin breakdown. GI: Soft, nontender, obese, no ecchymosis noted. No tenderness to palpation, no masses appreciated. No rebound, guarding, or rigidity noted. No distention Musculoskeletal: Patient has full range of motion of all of the extremities, no motor, sensory, or focal neurological deficits Neurological: A&O x4, normal speech Psychiatric: Cooperative Related Data Home Medications ?Medication ?Instructions ?Recorded ?Confirmed albuterol sulfate 90 mcg/actuation 2 inh inhalation Q6H PRN shortness 09/26/22 06/25/23 aerosol inhaler of breath or wheezing cetirizine 10 mg tablet 10 mg PO DAILY 09/26/22 06/25/23 gabapentin 600 mg tablet 1,200 mg PO .qhs 09/26/22 06/25/23 isosorbide mononitrate 60 mg 60 mg PO .q24 09/26/22 06/25/23 tablet,extended release 24 hr metoclopramide HCl 10 mg tablet 10 mg PO .COMPLEX 09/26/22 06/25/23 metoprolol succinate 100 mg 100 mg PO Q12H 09/26/22 06/25/23 tablet,extended release 24 hr pantoprazole 40 mg tablet,delayed 40 mg PO DAILY 09/26/22 06/25/23 release potassium chloride 10 mEq 10 meq PO BID 09/26/22 06/25/23 tablet,extended release(part/cryst) quetiapine 50 mg tablet 50 mg PO .qhs 09/26/22 06/25/23 tizanidine 4 mg tablet 4 mg PO Q12H PRN muscle spasticity 09/26/22 06/25/23 gabapentin 600 mg tablet 600 mg PO QAM 04/28/23 06/25/23 venlafaxine 150 mg 150 mg PO DAILY 06/25/23 06/25/23 capsule,extended release 24 hr venlafaxine 75 mg capsule,extended 75 mg PO DAILY 06/25/23 06/25/23 release 24 hr Previous Rx's ?Medication ?Instructions ?Recorded amoxicillin 875 mg-potassium 1 tab PO Q12H #20 tabs 06/25/23 clavulanate 125 mg tablet hydrocodone 5 mg-acetaminophen 325 1 tab PO Q6H PRN pain 3 days #12 06/25/23 mg tablet tabs methocarbamol 500 mg tablet 500 mg PO Q8H PRN muscle pain #10 09/08/24 tabs tramadol 50 mg tablet 50 mg PO Q8H PRN pain #14 tabs 09/08/24 Allergies Allergy/AdvReac Type Severity Reaction Status Date / Time NSAIDS (Non-Steroidal Allergy Severe Anaphylaxis Verified 12/03/23 12:54 Anti-Inflamma vancomycin Allergy hair falls Verified 12/03/23 12:54 out morphine AdvReac Intermediate Hives Verified 12/03/23 12:54 baclofen AdvReac Confusion Verified 12/03/23 12:54 Opioid HPI Opioid Management Most Recent Opioid Data: Last Pain Scale 8 Today, 09:25 Last MAR Pain Assessment Today, 09:25 PFSH PFSH Medical History GERD (gastroesophageal reflux disease) ?K21.9 - Gastro-esophageal reflux disease without esophagitis (ICD-10) Anxiety ?F41.9 - Anxiety disorder, unspecified (ICD-10) Seasonal allergies ?J30.2 - Other seasonal allergic rhinitis (ICD-10) Bronchitis ?J40 - Bronchitis, not specified as acute or chronic (ICD-10) COPD (chronic obstructive pulmonary disease) ?J44.9 - Chronic obstructive pulmonary disease, unspecified (ICD-10) Hypertension ?I10 - Essential (primary) hypertension (ICD-10) Surgical History History of appendectomy ?Z90.49 - Acquired absence of other specified parts of digestive tract (ICD-10) History of hysterectomy ?Z90.710 - Acquired absence of both cervix and uterus (ICD-10) History of left hip replacement ?Z96.642 - Presence of left artificial hip joint (ICD-10) History of right hip replacement ?Z96.641 - Presence of right artificial hip joint (ICD-10) History of total right knee replacement ?Z96.651 - Presence of right artificial knee joint (ICD-10) History of left knee replacement ?Z96.652 - Presence of left artificial knee joint (ICD-10) Family History Mother Family history of CHF (congestive heart failure) Family history of cancer Family history of diabetes mellitus Family history of hypertension Family history of myocardial infarction Brother Family history of cancer Family history of hypertension Social History Within the past year, how often did you have a drink containing alcohol: never Score interpretation: A score less than 3 is consistent with normal alcohol consumption. Smoking status: Light tobacco smoker Non-prescribed substance use: denies use Previous occupational history: disabled Highest level of school completed/degree received: some college, no degree Are you now , , , , never or living with a partner: Little interest or pleasure in doing things: not at all Feeling down, depressed, or hopeless: not at all Feel stressed/tense/nervous/anxious/difficulty sleeping: only a little Exam Constitutional Vital Signs, click to edit/add: Last Vital Signs Temp 98.2 F 09/08/24 08:41 Pulse 89 09/08/24 11:31 Resp 20 09/08/24 11:31 BP 161/92 H 09/08/24 11:31 Pulse Ox 93 L 09/08/24 11:31 Course Vital Signs Vital signs: Vital Signs Temperature 98.2 F 09/08/24 08:41 Pulse Rate 97 H 09/08/24 08:41 Respiratory Rate 18 09/08/24 08:41 Blood Pressure 186/98 H 09/08/24 08:41 Pulse Oximetry 94 L 09/08/24 08:41 Temperature 98.2 F 09/08/24 08:41 Pulse Rate 89 09/08/24 11:31 Respiratory Rate 20 09/08/24 11:31 Blood Pressure 161/92 H 09/08/24 11:31 Pulse Oximetry 93 L 09/08/24 11:31 Medical Decision Making MDM Narrative Medical decision making narrative: Patient seen and examined: Patient has CT of the head, cervical spine, chest. IV and lab work will be done as well. Differential diagnosis includes but is not limited to: Intracranial hemorrhage, cervical fracture, cervical sprain, dehydration, rhabdomyolysis, electrolyte abnormality, knee fracture, right shoulder fracture, shoulder dislocation Diagnostics and management: Patient will have laboratory studies patient has white blood cell count of 15.9, potassium 5.7, BUN and creatinine are 31/1.03. CO2 is 19, CK8 8 2. Relevant laboratory interpretation: Radiological studies: Please see the formal radiological report. CT of the head, cervical spine, right shoulder, bilateral knee x-rays show no acute findings. A copy of the report was given to the patient. Reevaluation: Patient felt much better after 2 L of IV fluid. Shared decision making: I discussed with the patient the necessary laboratory findings and radiological findings. Social barriers to healthcare: There are no food insecurities, there is no issue with transportation, there are no insurance barriers. Disposition: I discussed with the patient CT reports of the head, cervical spine, chest showed no acute abnormalities. Patient also had right shoulder x-ray showed no acute fracture, patient also had bilateral knee x-rays that were negative. Patient was given 2 L of IV fluid, patient had a CK of 800. Patient was ambulated in the [place] by Lety BERMUDEZ, please for documentation. Patient was able to ambulate slow but was able to bear weight. Patient wants to go home. Patient will be sent home with tramadol and Robaxin. Patient understands importance of using ice. Patient will follow-up with PCP. No questions at discharge. Lab Data Labs: Lab Results 09/08/24 09/08/24 Range/Units 09:18 10:05 WBC 15.9 H (4.0-11.0) 10^3/uL RBC 4.41 (4.20-5.40) 10^6/uL Hgb 14.2 (12.0-16.0) g/dL Hct 45.0 (36.0-48.0) % MCV 102.0 H (81.0-99.0) fL MCH 32.2 (26.7-34.0) pg MCHC 31.6 (29.9-35.2) g/dL RDW 13.5 (11.0-15.0) % Plt Count 242 (150-450) 10^3/uL MPV 12.1 (9.5-13.5) fL Neut % (Auto) 74.5 (43.0-75.0) % Lymph % (Auto) 13.0 L (20.5-60.0) % [place] % (Auto) 10.7 (1.7-12.0) % Eos % (Auto) 0.8 L (0.9-7.0) % Baso % (Auto) 0.7 (0.2-2.0) % Neut # (Auto) 11.8 H (1.4-6.5) 10^3/uL Lymph # (Auto) 2.1 (1.2-3.8) 10^3/uL [place] # (Auto) 1.7 H (0.3-0.8) 10^3/uL Eos # (Auto) 0.1 (0.0-0.7) 10^3/uL Baso # (Auto) 0.1 (0.0-0.1) 10^3/uL Abs Immat Gran (auto) 0.05 H (0.00-0.03) 10^3/uL Imm/Tot Granulo (auto) 0.3 (0.0-0.5) % PT 10.1 (9.0-11.6) sec INR 0.95 Sodium 137 (136-145) mmol/L Potassium 5.7 H (3.5-5.1) mmol/L Chloride 106 (98-107) mmol/L Carbon Dioxide 19.6 L (21.0-32.0) mmol/L Anion Gap 17.1 BUN 31.0 H (7.0-18.0) mg/dL Creatinine 1.03 H (0.55-1.02) mg/dL Est GFR ( Amer) >60 (>=60 mL/min/1.73m^2) Est GFR (Non-Af Amer) 53 L (>=60 mL/min/1.73m^2) BUN/Creatinine Ratio 30.1 Glucose 120 H (74-106) mg/dL Lactate 1.4 (0.4-2.0) mmol/L Calcium 9.1 (8.5-10.1) mg/dL Total Bilirubin 0.7 (0.2-1.0) mg/dL AST 35 (15-37) U/L ALT 23 (14-59) U/L Alkaline Phosphatase 98 (46-116) U/L Total Creatine Kinase 882 H* (26-192) U/L Troponin I High Sens 9.1 (4.0-51.3) pg/mL Total Protein 6.9 (6.4-8.2) g/dL Albumin 3.6 (3.4-5.0) g/dL Globulin 3.3 g/dL Albumin/Globulin Ratio 1.1 Lipase 25.0 (16.0-77.0) U/L Blood Type A Positive Antibody Screen Negative ECG Data Attestation: I personally reviewed and interpreted this ECG as follows: (EKG interpretation. Normal sinus rhythm at 96 beats a minute. Normal axis deviation. No acute ST elevation, no acute ectopy. QTc of 391.) Discharge Plan Discharge Chief Complaint: Syncope Clinical Impression: Closed head injury, Acute chest wall pain, Rhabdomyolysis, Dehydration, mild, Contusion of knee Patient Disposition: Home, Self-Care Time of Disposition Decision: 12:13 Condition: Fair Prescriptions / Home Meds: New methocarbamol 500 mg tablet 500 mg PO Q8H PRN (Reason: muscle pain) Qty: 10 0RF tramadol 50 mg tablet 50 mg PO Q8H PRN (Reason: pain) Qty: 14 0RF No Action gabapentin 600 mg tablet 600 mg PO QAM albuterol sulfate 90 mcg/actuation HFA aerosol inhaler 2 inh INHALATION Q6H PRN (Reason: shortness of breath or wheezing) cetirizine 10 mg tablet 10 mg PO DAILY gabapentin 600 mg tablet 1,200 mg PO .qhs isosorbide mononitrate 60 mg tablet extended release 24 hr 60 mg PO .q24 metoprolol succinate 100 mg tablet extended release 24 hr 100 mg PO Q12H metoclopramide HCl 10 mg tablet 10 mg PO .COMPLEX Rx Instructions: 10 mg orally before meals at at bedtime; pantoprazole 40 mg tablet,delayed release (DR/EC) 40 mg PO DAILY potassium chloride 10 mEq tablet,ER particles/crystals 10 meq PO BID quetiapine 50 mg tablet 50 mg PO .qhs tizanidine 4 mg tablet 4 mg PO Q12H PRN (Reason: muscle spasticity) venlafaxine 150 mg capsule,extended release 24hr 150 mg PO DAILY venlafaxine 75 mg capsule,extended release 24hr 75 mg PO DAILY hydrocodone-acetaminophen 5-325 mg tablet 1 tab PO Q6H PRN (Reason: pain) 3 Days Qty: 12 0RF Rx Instructions: DX: M54.5 amoxicillin-pot clavulanate 875-125 mg tablet 1 tab PO Q12H Qty: 20 0RF Print Language: Greenlandic Instructions: Dehydration (ED), Rhabdomyolysis (ED), Head Injury (ED), Contusion in Adults (ED), Chest Wall Pain (ED) Additional Instructions: Use ice 20 minutes on, 20 minutes off, do not use heat for the next 1 to 2 weeks. Alternate Tylenol and either Motrin, Advil, or ibuprofen every 4 hours to help with pain. If you are having severe pain, substitute a [place] tablet instead of Tylenol. Do not take Tylenol and [place] at the same time, you may actually take too much Tylenol at 1 setting or in 1 day. Maximum Tylenol dose of Tylenol is 3000 mg a day. Maximum dose of either Motrin, Advil, or ibuprofen is 2400 mg a day. Follow-up with Dr. Sanderson in outpatient physical therapy if needed. Your chest wall/ribs were hurt for approximately 1 month, no acute signs of rib fractures. A copy of your CT reports and x-rays were given to you Referrals: Bill Sanderson MD [Primary Care Provider, Family Practice] - 1 week
[2024-09-08] MEDS: HYDROMORPHONE HCL 0.5 MG/0.5 ML SYRINGE IV (09:25)
[2024-09-08] MEDS: ONDANSETRON PF 4 MG/2 ML VIAL IV (09:25)
[2024-09-08] MEDS: 0.9 % SODIUM CHLORIDE 1,000 ML 1000 ML IV (09:26)
[2024-09-08 09:28] LABS: Basophils Absolute Auto 0.1 10^3/uL (0.0-0.1); Basophils Percent Auto 0.7 % (0.2-2.0); Eosinophils Absolute Auto 0.1 10^3/uL (0.0-0.7); Eosinophils Percent Auto 0.8 % (0.9-7.0); Hemoglobin 14.2 g/dL (12.0-16.0); Immature Granulocytes Abs Auto 0.05 10^3/uL (0.00-0.03); Immature Granulocytes Pct Auto 0.3 % (0.0-0.5); Lymphocytes Absolute Auto 2.1 10^3/uL (1.2-3.8); Mean Corpuscular HGB Conc 31.6 g/dL (29.9-35.2); Mean Corpuscular Hemoglobin 32.2 pg (26.7-34.0); Mean Platelet Volume 12.1 fL (9.5-13.5); Monocytes Absolute Auto 1.7 10^3/uL (0.3-0.8); Monocytes Percent Auto 10.7 % (1.7-12.0); Neutrophils Absolute Auto 11.8 10^3/uL (1.4-6.5); Neutrophils Percent Auto 74.5 % (43.0-75.0); Platelet Count 242 10^3/uL (150-450); Red Blood Count 4.41 10^6/uL (4.20-5.40); Red Cell Distribution Width 13.5 % (11.0-15.0); White Blood Count 15.9 10^3/uL (4.0-11.0)
[2024-09-08 09:40] LABS: INR 0.95; Prothrombin Time 10.1 sec (9.0-11.6)
[2024-09-08 09:51] LABS: Lactate/Lactic Acid 1.4 mmol/L (0.4-2.0)
[2024-09-08 10:32] LABS: Alkaline Phosphatase 98 U/L (46-116); Anion Gap 17.1; Aspartate Amino Transferase 35 U/L (15-37); BUN Creatinine Ratio 30.1; Bilirubin Total 0.7 mg/dL (0.2-1.0); Calcium 9.1 mg/dL (8.5-10.1); Carbon Dioxide 19.6 mmol/L (21.0-32.0); Chloride 106 mmol/L (98-107); Estimated GFR (African America >60 (>=60 mL/min/1.73m^2); Estimated GFR (Non-African Ame 53 (>=60 mL/min/1.73m^2); Glucose 120 mg/dL (74-106); Potassium 5.7 mmol/L (3.5-5.1); Sodium 137 mmol/L (136-145); Total Protein 6.9 g/dL (6.4-8.2); Troponin I High Sensitivity 9.1 pg/mL (4.0-51.3)
[2024-09-08] MEDS: 0.9 % SODIUM CHLORIDE 1,000 ML 999 ML IV (10:36)
[2024-09-08 10:56] LABS: Albumin Globulin Ratio 1.1; Albumin Level 3.6 g/dL (3.4-5.0); Globulin 3.3 g/dL
[2024-09-08 11:01] LABS: Creatine Kinase 882 U/L (26-192)
[2024-09-08 11:31] LABS: Alanine Aminotransferase 23 U/L (14-59)
== END 2024-09-08 12:28 | disposition home or self-care (01) ==
PROVIDERS: Emergency Provider Emergency Medicine; PCP Family Medicine
DX: S09.8XXA Other specified injuries of head, initial encounter (principal); R07.89 Other chest pain; M62.82 Rhabdomyolysis; E86.0 Dehydration; W18.39XA Other fall on same level, initial encounter; Z90.49 Acquired absence of other specified parts of digestive tract; S80.00XA Contusion of unspecified knee, initial encounter; Z90.710 Acquired absence of both cervix and uterus; Z96.653 Presence of artificial knee joint, bilateral; Z96.643 Presence of artificial hip joint, bilateral; F17.200 Nicotine dependence, unspecified, uncomplicated
CPT/HCPCS: 36415; 70450; 71250; 72125; 73030; 73564; 80053; 81001; 82550; 83605; 83690; 84484; 85025; 85610; 86850; 86900; 86901; 93005; 96361; 96374; 96375; 99285; J1171; J2405

== ENCOUNTER 2024-09-13 15:15 | Inpatient (IN) | payer MEDICARE, OTHER, SELFPAY ==
--- OUTSIDE RECORDS SUMMARY | 2023-04-25 07:25 | XMS_ITS | Continuity of Care Document ---
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 Name Role Phone Jelani Burgos PA-C Unavailable Unavailable Allergies, Adverse Reactions, Alerts Substance Reaction Status Criticality vancomycin Active No Information CEFAZOLIN SODIUM Active No Informat ion NSAIDS (Non-Steroidal Anti-Inflammatory Drug) Active No Information morphine Active No Information Medications Medication Instructions Dosage Effective Dates (start - stop) Status Comments hydrocodone 5 mg-acetaminophen 325 mg tablet take 1 tablet by oral route every 6 hours as needed for pain 1.00 tablet - Active DOXYCYCLINE HYCLATE (unknown strength) take 1 capsule by oral route every 12 hours Not Available - Active Procedures Procedure Date Office/outpatient visit,est, mod 2023 X-ray exam of knee, 3 views Office/outpatient visit,est, mod 2023 No Charge Office/outpatient visit,est, mod 2022 X-ray exam of knee, 4+ views Ko adj jnt pos r sup pre ots Postop followup visit X-ray exam of knee, 3 views Postop followup visit Postop followup visit X-ray exam of knee, 1 or2 views 023 Release of knee retinaculum PA Release Of Knee Retinaculum Office/outpatient visit,est, mod 2022 Postop followup visit X-ray exam of knee, 3 views Intermittent Compression Device - SELF P AY Arthroplasty, total knee PA Arthroplasty, Total Knee PA Arthroplasty, Total Knee Office/outpatient visit,est, mod 2021 X-ray exam of knee, 1 or2 views Office/outpatient visit,est, mod 2021 X-RAY EXAM HIP UNI 2-3 VIEWS X-ray exam of knee, 3 views Office/outpatient visit,est, low 2021 Office/outpatient visit,est, low 2021 Advance Directives Directive Yes / No Effective Date File Name No Information Encounters Encounter Description Practice Location Reason(s) For Visit Diagnoses Date Provider Providers Copied on Encounter Office/outpa tient visit,est, mod [facility], [facility], tel:[phone] [facility] Unilateral primary osteoarthritis, left kneePresence of left artificial knee joint 4 Aubrey Palomares. [address] [place] [address], Suite [facility], [place], [place], [facility], . tel:[phone] Referring Provider: Calos Quinn V, [address] [place] [address] [address], [place], [address] . tel:[phone], [facility], tel:[phone] [facility] No Information Ming Live. [address] [place] [address], [address], [place], [place], [id number], [place]. tel:[phone] Referring Provider: Calos Quinn V, [address] [place] [address] [address], [place], [address] . tel:[phone] [facility], [facility], tel:[phone] [facility] 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, initial encounterKnee instability, left 4 Ming Live. [address] [place] [address], [address], [place], [place], [id number], [place]. tel:[phone] Referring Provider: Calos Quinn V, [address] [place] [address] [address], [place], [address] . tel:[phone] Office/outpa tient visit,est, [facility], [address] [place] [address], [address], [place] tel:[phone] [facility] [place] Presence of left artificial knee jointUnilateral primary osteoarthritis, left kneeAftercare following joint replacement surgery 4 Aubrey Palomares. [address] [place] [address], [address], [place], [address], [place]. tel:[phone] Referring Provider: Calos Quinn V, [address] [place] [address] [address], [place], [address] . tel:[phone] [facility], [address] [place] [address], [facility], [place] tel:[phone] [facility] [place] Knee instability, left 3 Jovanni Kimmie. [address] [place] [address], [address], [place], [place], [id number], [place]. tel:[phone] Referring Provider: Calos Quinn V, [address] [place] [address] [address], [place], [address] . tel:[phone] Office/outpa tient visit,est, [facility], [address] [place] [address], [facility], [place] tel:[phone] [facility] [place] Knee instability, leftPain, joint, knee, leftPresence of left artificial knee joint 3 Jovanni Kimmie. [address] [place] [address], [address], [place], [place], [id number], [place]. tel:[phone] Referring Provider: Calos Quinn V, [address] [place] [address] [address], [place], [address] . tel:[phone], [facility], tel:[phone] [facility] No Information Nov-2 3 Jovanni Burks. [address] [facility], [address], [place], [place], [id number], [place]. tel:[phone] Referring Provider: Kimmie Palumbo, [address] [place] [address] [address], [place], [address] . tel:[phone], [facility], tel:[phone] [facility] Screening for osteoporosis 3 Shaheen Crouch. [address] [place] [address], [place] [address], [id number], [place]. tel:[phone] Referring Provider: Calos Quinn V, [address] [place] [address] [address], [place], [address] . tel:[phone], [facility], tel:[phone] [facility] Presence of left artificial knee jointPresence of left artificial knee joint Apr-0 3 Aubrey Palomares. [address] [facility], [address], [place], [facility], . tel:[phone] Referring Provider: Calos Quinn V, [address] [place] [address] [address], [place], [address] . tel:[phone], [facility], tel:[phone] [facility] Aftercare following joint replacement surgeryPresence of left artificial knee jointUnilateral primary osteoarthritis, left knee Mar-0 3 Aubrey Palomares. [address] [place] [address], [address], [place], [address], [place]. tel:[phone] Referring Provider: Calos Quinn V, [address] [place] [address] [address], [place], [address] . tel:[phone] [facility], [facility], tel:[phone] [address] [place] [address] Encounter for other orthopedic aftercareOth comp of internal orthopedic prosth dev/grft, subsPresence of left artificial knee joint 3 Aubrey Palomares. [address] [place] [address], [address], [place], [address], [place]. tel:[phone] Referring Provider: Calos Quinn V, [address] [place] [address] [address], [place], [address] . tel:[phone] [facility], [facility], tel:[phone] [facility] No Information 3 Ming Live. [address] [place] [address], [address] [place] [address], [id number], [place]. tel:[phone] Referring Provider: Calos Quinn V, [address] [place] [address] [address] [facility], [place], [address] . tel:[phone] [facility], [facility], [place] tel:[phone] [facility] No Information 3 Aubrey Palomares. [address] [place] [address], [address], [facility], [place]. tel:[phone] Referring Provider: Calos Quinn V, [address] [place] [address] [place] [address], [address] . tel:[phone] Office/outpa tient visit,est, mod [facility], [address] [place], [address], [place] tel:[phone] [facility] Primary osteoarthritis of left kneeHistory of arthroplasty of left kneePain, joint, knee, left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, initial encounterPrimar y osteoarthritis of right kneePresence of right artificial knee joint 3 Ming Ortizph. [address], [address], [place], [place], [id number], [place]. tel:[phone] Referring Provider: Calos Quinn V, [address], [place], [address] . tel:[phone] [facility] [place] [address] [place], [address], [place] tel:[phone] [facility] Unilateral primary osteoarthritis, left kneePrimary osteoarthritis of right kneeAftercare following joint replacement surgeryPresence of right artificial knee joint 2 Jovanni Burks. [address], [address], [place], [place], [id number], [place]. tel:[phone] Referring Provider: Calos Quinn V, [address], [place], [address] . tel:[phone] [facility] [place] [address] [place], [address], [place] tel:[phone] [facility] No Information 2 Ming Ortizph. [address], [address], [place], [place], [id number], [place]. tel:[phone] Referring Provider: Calos Quinn V, [address], [place], [address] . tel:[phone] [facility], [facility], [address], [place] tel:[phone] [facility] No Information 2 Ming Live. [address] [facility], [address], [place], [place], [id number], [place]. tel:[phone] Referring Provider: Calos Quinn V, [address] [place] [address] [address], [place], [address] . tel:[phone] [facility] [address], [facility], [place] tel:[phone] 700 [facility] No Information 2 Calvin Benavidez. [address] [facility], [address], [place], [id number], [place]. tel:[phone] Referring Provider: Calos Quinn V, [address] [place] [address] [address], [place], [address] . tel:[phone] [facility], [facility], [place] tel:[phone] [address] [place] [address] No Information 2 Shaheen Crouch. [address] [place] [address], [facility] [address], [id number], [place]. tel:[phone] Referring Provider: Calos Quinn V, [address] [place] [address] [address], [place], [address] . tel:[phone] [facility], [facility], [place] tel:[phone] [address] [place] [address] Primary osteoarthritis of right knee Sep-2 2 Ming Live. [address] [place] [address], [address], [place], [place], [id number], [place]. tel:[phone] Referring Provider: Calos Quinn V, [address] [place] [address] [address], [place], [address] . tel:[phone] Office/outpa tient visit,est, mod [facility], [address] [place] [address], [address], [place] tel:[phone] [facility] Primary osteoarthritis of right kneeBilateral primary osteoarthritis of kneePresence of left artificial knee joint 2 Jovanni Kimmie. [address], [address], [place], [place], [id number], [place]. tel:[phone] Referring Provider: Calos Quinn V, [address], [place], [address] . tel:[phone] Office/outpa tient visit,est, mod [facility], [address] [place], [address], [place] tel:[phone] [facility] Presence of left artificial knee jointInfection and inflammatory reaction due to internal left knee prosthesis, initial encounterPresen ce of left artificial hip jointInfect/inf lm reaction due to internal left knee prosth, subs 2 Jovanni Kimmie. [address], [address], [place], [place], [id number], [place]. tel:[phone] Referring Provider: Calos Quinn V, [address] [place] [address] [address], [place], [address] . tel:[phone] Office/outpa tient visit,est, low [facility], [facility] [place], [address], [place] tel:[phone] [facility] Presence of left artificial hip jointPresence of left artificial knee jointPrimary osteoarthritis of left hipUnilateral primary osteoarthritis, left kneeInfection and inflammatory reaction due to internal left knee prosthesis, initial encounter 2 Loan Covarrubias. [address] [place], [place], [id number], [place]. tel:[phone] Referring Provider: Calos Quinn V, [address], [place], [address] . tel:[phone] Office/outpa tient visit,est, low [facility], [address] [employer] [facility] [employer] [place], [address], [place] tel:[phone] [facility] [place] Presence of left artificial knee jointUnilateral primary osteoarthritis, left kneeInfect/infl m reaction due to internal left knee prosth, subs 2 Jovanni Burks. [address], [address], [place], [place], [id number], [place]. tel:[phone] Referring Provider: Calos Quinn V, [address], [place], [address] . tel:[phone] Family History Family Member Type Diagnosis Age At Onset No Information Payers Payer name Insurance type Covered alliance party ID Authoriza tion(s) Medicare Game Blisterslizzy Staton GBA [id number] 1 [facility] Options - [id number] CI [id number] Social History Type Description Quantity Date Captured Comments Alcohol Use Details Unknown Caffeine Use Details Unknown Tobacco Use Status No Information Smoking Status No Information Sex Female Chief Complaint And Reason For Visit No Information Reason For Referral Reason For Referral No Information Plan Of Treatment Date Type Action Status Referral Referred To: Custom hinged knee brace Ordered: Referrals: Custom hinged knee brace ordered Referral Referred To: DME T-Scope L1833 Ordered: Referrals: DME T-Scope L1833 ordered Referral Referred To: DME RTKA Ordered: Referrals: DME RTKA ordered Future Order: Lab Order CBC With Differential/Platelet ([id number]), Ordered on: Ordered Future Order: Lab Order Sediment ation Rate-Westergren ([id number]), Ordered on: Ordered Future Order: Lab Order C-Reacti ve Protein, Quant ([id number]), Ordered on: Ordered Future Order: Lab Order PTH, Int act ([id number]), Ordered on: Ordered Future Order: Lab Order Phosphor us, Serum ([id number]), Ordered on: Ordered Future Order: Lab Order Comp. Me tabolic Panel (14) ([id number]), Ordered on: Ordered Future Order: Lab Order TSH ([id number]), Ord ered on: Ordered Future Order: Lab Order Vitamin D, 25-Hydroxy ([id number]), Ordered on: Ordered Future Order: Lab Order Magnesiu m, Serum ([id number]), Ordered on: Ordered Future Order: Lab Order Cell Ct, Synovial w/o Crystals ([id number]), Ordered on: Ordered Future Order: Lab Order Anaerobi c and Aerobic Culture ([id number]), Ordered on: Ordered Future Order: Lab Order Sediment ation Rate-Westergren ([id number]), Ordered on: Ordered Future Order: Lab Order C-Reacti ve Protein, Quant ([id number]), Ordered on: Ordered Future Order: Lab Order CBC With Differential/Platelet ([id number]), Ordered on: Ordered History Of Present Illness Encounter Date Complaint History Of Prese nt Illness Follow Up Left Knee Modifying Fa ctors: Previous Surgery: LK arthrotomy, patella hardware removal, lateral retinacular release, extensor mechanism. Post Op Left Knee Comments: Cyndy ent complains of left knee pain all over, restricted ROM, and noise with movement. Patient is ambulating with a walker. Symptoms are worsening over time. The knee will buckle.Patient's right knee is doing well. Follow Up Left Knee Follow Up Left Knee Comments: S/ P LK reimplant 01/03/21 AVL, patient is here today for a 2 month follow up per last office visit however she did have a fall 06/14/21 when she caught her walker wheel on her chair at home. She had to call the squad to take her to the hospital and then was placed in a SNF for rehab, She reports she thinks the knee was fine after the fall but still having alot of pain in her left leg from her hip to her knee Comments: c/o left hip pain since her recent fall on 06/14/21 and went to the hospital. She was placed in a SNF and reports continued pain from her left hip lateral aspect to her knee, Follow Up Left Knee Comments: S/ P LK reimplant 01/03/21 AVLPatient states doing well, using a walker, brace in place, attending PT. Follow Up Left Knee Location: De nies pain in Left knee. Context: Can you weight bear? Yes. Modifying Factors: Bracing: stays the same. Physical Therapy: home health. Comments: Patient is about 4 months s/p left knee reimplant. She continues to wear brace with 0-60 degrees ROM since last office visit. Having trouble keeping brace up. Denies left knee pain, but has constant left thigh pain. She has completed antibiotic regimen with Dr. Grabiel Cash ([place]), however patient has been sick and PCP has prescribed cipro, levaquin, amoxicillin. Currently taking cipro for bladder infection. Denies any fevers, night sweats or chills. Functional Status Date Functional Assessmen t No Information Instructions Date Instruction Additional Infor mation No Information Assessments Type Assessment Date No Information Patient Care Teams Name Effective Dates (start - stop) Status Members No Information
--- OUTSIDE RECORDS SUMMARY | 2024-09-05 09:04 | XMS_ITS ---
Author Organization The [facility] in [place] Address [address] [place] [address] Care Team Providers Care Investigation Division Captain Name Role Phone Deni Sanderson Primary Care Provider REASON FOR VISIT rf valium Medications Medication SIG (Take, Route, Frequency, Duration) Notes Start Date End Date Status Valium 2 MG Take 1 Orally tid prn for 30 days F41.9 09/05/2024 Active Encounters Encounter Location Date Provider Diagnosis [facility] [address] [place] [address] 09/05/2024 Deni Sanderson Hyperlipidemia E78.5 Assessments Encounter Date Diagnosis (ICD Code) Assessment Notes Treatment Notes Treatment Clinical Notes Section Notes 09/05/2024 Hyperlipidemia (ICD-10 - E78.5) Plan Of Treatment Medication Medication Name Sig Start Date Stop Date Notes Valium 2 MG Take 1 Orally tid prn for 30 days 09/05/2024 Progress Notes * Trinity GODINEZ SDOB: (69 yo F)Acc No.[id number]:09/05/2024 Patient: Trinity ORELLANA :1955 A ge:69 Y S ex:Female Address:[address] [place] [address], [id number] * Refills Refill Valium Tablet, 2 MG, Orally, 90, Take 1, tid prn, 30 days, Refills=0 * true * Date: Generated for Printi ng/Faxing/eTransmitting on: 0 09/13/2024 03:22 PM EDT
--- OUTSIDE RECORDS SUMMARY | 2024-09-08 17:10 | XMS_ITS ---
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
--- OUTSIDE RECORDS SUMMARY | 2024-09-11 07:15 | XMS_ITS ---
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 Name Role Phone Deni Sanderson Primary Care Provider Allergies Allergen (clinical drug ingredient) Drug/Non Drug Allergy documented on EMR Reaction Allergy Type Onset Date Status oxaprozin Daypro Unknown Drug Allergy Active methocarbamol Robaxin Unknown Drug Allergy Act lamonte aspirin Aspirin Unknown Drug Allergy Active baclofen Baclofen altered mental status, slept for days, falls Drug Allergy Active ibuprofen Ibuprofen Unknown Drug Allergy Active morphine Morphine Unknown Drug Allergy Active REASON FOR VISIT Fell Sunday- went to ER Sunday- abrasion on left cheek, rib pain, abrasions on right elbow, bruise on right knee, bruise on right breast, ER gave Tramadol and Methocarbamol Medications Medication SIG (Take, Route, Frequency, Duration) Notes Start Date End Date Status Potassium Chloride Katerin ER 10 MEQ TAKE 1 TABLET BY MOUTH TWICE DAILY for 90 Active predniSONE 10 MG 1 tablet Orally Once a day for 30 days 07/04/2023 Active Pantoprazole Sodium 40 MG TAKE 1 TABLET BY MOUTH DAILY for 90 Active Methocarbamol 500 MG Oral for 4 Days Active Metoclopramide HCl 10 MG TAKE 1 TABLET B Y MOUTH BEFORE MEALS AND AT BEDTIME 4 TIMES DAILY for 90 days Active Metoprolol Succinate ER 100 MG TAKE 1 TABLET BY MOUTH TWICE DAILY for 90 Active Ondansetron 4 MG 1 tablet on the tongue and allow to dissolve = for nausea Orally Q 6 hours PRN for 3 days 09/07/2023 Active Methocarbamol 500 MG 1 tables Orally tid for 14 days 09/11/2024 Active Hyoscyamine Sulfate 0.125 MG 2 tabs SL SL every 4 hrs PRN abd pain 12/07/2023 Active Isosorbide Mononitrate ER 60 MG TAKE 1 TABLET BY MOUTH ONCE DAILY for 90 Active Fludrocortisone Acetate 0.1 MG TAKE 1 TABLET BY MOUTH TWICE DAILY for 90 Active Gabapentin 600 MG TAKE 1 TABLET BY MOUTH IN THE MORNING AND 2 TABLETS BY MOUTH IN THE EVENING for 90 days Active HYDROcodone-Acetaminophen 5-325 MG 1 tablet Orally qid - prn for 7 days M54.16 06/11/2023 Active Albuterol Sulfate HFA 108 (90 Base) MCG/ACT USE 2 INHALATIONS BY MOUTH EVERY 4 HOURS NEEDED for 90 Active Cetirizine HCl 10 MG 1 tablet Orally Onc e a day for 90 days Active Flonase Allergy Relief 50 MCG/ACT 1 spray in each nostril Nasally Twice a day for 30 days 07/12/2022 Active Breo Ellipta 100-25 MCG/ACT 1 puff Inhalation Once a day for 90 days 07/12/2022 Active Calcium + D 600-200 MG-UNIT 1 tablet Orally Twice a day for 30 days 05/07/2023 Active Venlafaxine HCl ER 75 MG TAKE 1 CAPSULE BY MOUTH ONCE DAILY WITH THE 150 MG CAPSULE for 90 Active Methocarbamol 500 MG Oral for 4 Days Not-Taking traMADol HCl 50 MG 1 tablet as needed Orally tid for 7 days 09/11/2024 Active Venlafaxine HCl ER 150 MG TAKE 1 CAPSULE BY MOUTH ONCE DAILY for 90 Active Sucralfate 1 GM TAKE 1 TABLET BY MOUTH 4 TIMES DAILY ON AN EMPTY STOMACH for 90 Active valACYclovir HCl 1 GM 1 tablet Orally ti d for 10 01/19/2023 Active tiZANidine HCl 4 MG TAKE 1 IN AM, 1 IN AFTERNOON, AND 2 AT BEDTIME for 90 Active traMADol HCl 50 MG Oral for 5 Days Active Valium 2 MG Take 1 Orally tid prn for 30 days F41.9 09/05/2024 Active Restoril 30 MG 1 capsule at bedtime as needed Orally dx G47.00 Once a day for 30 days 09/02/2024 Active Promethazine HCl 25 MG 1 tablet as neede d Orally every 4 hrs-PRN for 90 days PRN 07/12/2022 Active QUEtiapine Fumarate 50 MG TAKE 1 TABLET BY MOUTH EVERYDAY AT BEDTIME for 30 Active Social History Tobacco Use: Social History Observation Description Date Details (start date - stop date) Former Smoker NA - NA Tobacco Control (Standard) Question Answer Notes Tobacco use: Former smoker Vital Signs Blood pressure systolic 140 mm Hg 09/12/19 25 Blood pressure diastolic 72 mm Hg 025 Height 68 in 09/11/2024 Weight 201.6 lbs 09/11/2024 BMI 30.65 kg/m2 09/11/2024 Procedures Procedure Date Ordered Date Performed Result Body Sit e Holter Monitor - 3 days up to 14 days 09/11/2024 N/A Encounters Encounter Location Date Provider Diagnosis [facility] [address] [place] [address] 09/11/2024 Deni Hoanant Hypertension I10 ; C OPD (chronic obstructive pulmonary disease) J44.9 ; Back pain M54.9 ; Syncope R55 and H/O fall Z91.81 Assessments Encounter Date Diagnosis (ICD Code) Assessment Notes Treatment Notes Treatment Clinical Notes Section Notes 09/11/2024 Hypertension (ICD-10 - I10) restarted fludrocortisone 09/11/2024 COPD (chronic obstructive pulmonary disease) (ICD-10 - J44.9) 09/11/2024 Back pain (ICD-10 - M54.9) 09/11/2024 Syncope (ICD-10 - R55) 09/11/2024 H/O fall (ICD-10 - Z91.81) Plan Of Treatment Medication Medication Name Sig Start Date Stop Date Notes Methocarbamol 500 MG 1 tables Orally tid for 14 days 09/11 traMADol HCl 50 MG 1 tablet as needed O rally tid for 7 days 09/11/2024 Treatment Notes Assessment Notes Hypertension restarted fludrocort isone Pending Test Test Name Order Date Holter Monitor - 3 days up to 14 days Progress Notes * GRETCHEN Trinity SDOB: [birth year] (69 yo F)Acc No.[id number]:09/11/2024 UNLOCKED PROGRESS NOTE Progress Note Patient: Trinity ORELLANA Provider: Mike Sanderson ([facility])MD :1955 A ge:69 Y S ex:Female Date:09/11/2024 Address:[address] [place] [address], [place], [id number] Check In:11:12 AM ESTCheck O ut:11:48 AM EST Subjective: * Chief Complaints: * 1 . Fell Sunday- went to ER Sunday- abrasion on left cheek, rib pain, abrasions on right elbow, bruise on right knee, bruise on right breast. 2. ER gave Tramadol and Methocarbamol. * HPI: G eneral: pased out - not sure how long out - laid on floor for 14 hours seen in er - not taking fludrocortisone. * ROS: E ENT: hearing changes d enies. v isual changes d enies.?non-healing mouth sores d enies. s wollen glands or neck lumps d enies. h oarseness d enies. s ore throat d enies. d ifficulty swallowing d enies. n ose bleeds d enies. n rolando congestion d enies. e ar ache d enies. e ar discharge?denies. r inging in ears d enies. l ight sensitivity d enies. e ye pain d enies. b lurring d enies. e ye irritation d enies. d ouble vision d enies.?vision loss d enies. G eneral/Constitutional: Sweats: D enies. F atigue d enies. S leep problems d enies. A norexia d enies. M alaise d enies. W eight loss d enies.?Fatigue or Weakness d enies. F ever or Chills d enies. C ardiovascular: Shortness of Breath w/lying flat d enies. L ightheadedness/dizziness d enies. C hest tightness/ heavy pressure d enies. S welling of legs, ankles, or feet d enies. W aking up with shortness of breath d enies. C hest pain denies. P alpitations d enies. W eight gain d enies. R espiratory: Chronic or frequent cough d enies. C oughing up blood?denies. D ifficulty breathing d enies. P roductive cough d enies. S noring?denies. S hortness of breath that awakens from sleep (PND) d enies. C hest pain d enies. S putum production d enies. W heezing d enies. * Medical History: A nxiety, Seronegative rheumatoid arthritis, At risk for falls, Preop examination, Over weight, Knee pain, right, Falls frequently, Pyelonephritis, Insomnia, Atelectasis, Abdominal pain, right upper quadrant, Internal derangement of right knee, COVID- 19, Infection and inflammatory reaction due to other internal joint prosthesis, initial encounter, Acute combined systolic (congestive) and diastolic (congestive) heart failure, Viral gastroenteritis, Lobar pneumonia, Other pulmonary embolism with acute cor pulmonale, Gastritis, Hiatal hernia, GERD (gastroesophageal reflux disease), Osteoarthritis, unspecified osteoarthritis type, unspecified site, Well adult, Chest pain, Ankle pain, unspecified chronicity, unspecified laterality, Bruising, Dyspnea, Lumbar radiculopathy, Hyperlipidemia, Arthralgia, Acute angle-closure glaucoma, unspecified eye, Adrenal mass, COPD (chronic obstructive pulmonary disease), Hypertension, Back pain, Asthma, Cigarette smoker. * Surgical History: l eft knee Replacement and revision 04/16/2022, Rt knee replacement , Hysterectomy , Tonsillectomy , Appendectomy . * Hospitalization/Major Diagno stic Procedure: c ovid 07/2020, Pneumonia . * Family History: F ather: alive. M other: . B rother(s): alive. S on(s): alive. D arsen(s): alive, Mental Health. 1 brother(s) - healthy. 2 son(s) , 1 daughter(s) . . * Social History: T obacco Use: T obacco Control (Standard) T obacco use: F ormer smoker * Medications: T aking Albuterol Sulfate HFA 108 (90 Base) MCG/ACT Aerosol Solution USE 2 INHALATIONS BY MOUTH EVERY 4 HOURS NEEDED , Taking Breo Ellipta(Fluticasone Furoate-Vilanterol) 100-25 MCG/ACT Aerosol Powder Breath Activated 1 puff Inhalation Once a day , Taking Calcium + D 600-200 MG-UNIT Tablet 1 tablet Orally Twice a day , Taking Cetirizine HCl 10 MG Tablet 1 tablet Orally Once a day , Taking Flonase Allergy Relief(Fluticasone Propionate) 50 MCG/ACT Suspension 1 spray in each nostril Nasally Twice a day , Taking Fludrocortisone Acetate 0.1 MG Tablet TAKE 1 TABLET BY MOUTH TWICE DAILY , Taking Gabapentin 600 MG Tablet TAKE 1 TABLET BY MOUTH IN THE MORNING AND 2 TABLETS BY MOUTH IN THE EVENING , Taking HYDROcodone-Acetaminophen 5-325 MG Tablet 1 tablet Orally qid - prn , Notes to Pharmacist: M54.16, Taking Hyoscyamine Sulfate 0.125 MG Tablet 2 tabs SL SL every 4 hrs PRN abd pain , Taking Isosorbide Mononitrate ER 60 MG Tablet Extended Release 24 Hour TAKE 1 TABLET BY MOUTH ONCE DAILY , Taking Methocarbamol 500 MG Tablet Oral , Taking Metoclopramide HCl 10 MG Tablet TAKE 1 TABLET BY MOUTH BEFORE MEALS AND AT BEDTIME 4 TIMES DAILY , Taking Metoprolol Succinate ER 100 MG Tablet Extended Release 24 Hour TAKE 1 TABLET BY MOUTH TWICE DAILY , Taking Ondansetron 4 MG Tablet Disintegrating 1 tablet on the tongue and allow to dissolve = for nausea Orally Q 6 hours PRN , Taking Pantoprazole Sodium 40 MG Tablet Delayed Release TAKE 1 TABLET BY MOUTH DAILY , Taking Potassium Chloride Katerin ER 10 MEQ Tablet Extended Release TAKE 1 TABLET BY MOUTH TWICE DAILY , Taking predniSONE 10 MG Tablet 1 tablet Orally Once a day , Taking Promethazine HCl 25 MG Tablet 1 tablet as needed Orally every 4 hrs-PRN , Notes to Pharmacist: PRN, Taking QUEtiapine Fumarate 50 MG Tablet TAKE 1 TABLET BY MOUTH EVERYDAY AT BEDTIME , Taking Restoril(Temazepam) 30 MG Capsule 1 capsule at bedtime as needed Orally dx G47.00 Once a day , Taking Sucralfate 1 GM Tablet TAKE 1 TABLET BY MOUTH 4 TIMES DAILY ON AN EMPTY STOMACH , Taking tiZANidine HCl 4 MG Tablet TAKE 1 IN AM, 1 IN AFTERNOON, AND 2 AT BEDTIME , Taking traMADol HCl 50 MG Tablet Oral , Taking valACYclovir HCl 1 GM Tablet 1 tablet Orally tid , Taking Valium(diazePAM) 2 MG Tablet Take 1 Orally tid prn F41.9, Taking Venlafaxine HCl ER 150 MG Capsule Extended Release 24 Hour TAKE 1 CAPSULE BY MOUTH ONCE DAILY , Taking Venlafaxine HCl ER 75 MG Capsule Extended Release 24 Hour TAKE 1 CAPSULE BY MOUTH ONCE DAILY WITH THE 150 MG CAPSULE , Not-Taking/PRN Methocarbamol 500 MG Tablet Oral , Discontinued Ondansetron 4 MG Tablet Disintegrating 1 tablet on the tongue and allow to dissolve Orally QID-PRN , Notes to Pharmacist: PRN, Discontinued Ozempic (0.25 or 0.5 MG/DOSE) 2 MG/1.5ML Solution Pen-injector 0.25mg Subcutaneous Once a week , Discontinued SEROquel(QUEtiapine Fumarate) 50 MG Tablet 1 tablet at bedtime Orally Once a day , Medication List reviewed and reconciled with the patient * Allergies: A spirin - Criticality High, Ibuprofen - Criticality High, Daypro - Criticality High, Robaxin - Criticality High, Morphine - Criticality High, Baclofen: altered mental status, slept for days, falls - Allergy - Criticality High. Objective: * Vitals: W t:201.6lbs, Ht: 68 in, BP:140/72mm Hg, BMI:30.65Index, Ht-cm: 172.72 cm, Wt-k.45 kg. * Examination: P hysical Exam: GENERAL: w ell developed, well nourished, in no acute distress. HEAD: n ormocephalic/atraumatic. EYES: p upils equal, round and reactive to light, conjunctivae and sclerae normal. EARS: n o deformity or lesion of external ear, canals and TM appear normal bilaterally, TM's intact, not inflamed with normal light reflex, hearing grossly normal to conversational speech. NOSE: n o deformity, discharge, inflammation, or lesions.? MOUTH: m ucous membranes moist, normal oropharynx and posterior pharynx without lesions or exudates, tongue normal, dentition normal. NECK: n kirsten supple, no masses or palpable cervical nodes, trachea midline, thyroid without nodules, masses, tenderness, or enlargement. CHEST: n o chest wall deformity, no chest wall tenderness.? LUNGS: n ormal respiratory effort and clear to auscultation, no wheezes, rales, or rhonchi, good air exchange. CARDIO: r egular rate and rhythm, normal S1 and S2, nor murmur, rub, or gallop. PULSES: n ormal capillary refill. ABDOMEN: s oft, non-distended, non-tender, no masses. MUSCULOSKELETAL: n o deformity or scoliosis noted, normal range of motion, joints normal, no erythema, edema, effusion, or ecchymosis. EXTREMITY: m ultiple bruises consistent wiht fall. NEUROLOGIC: g rossly normal. SKIN: n o rashes, ulcerations, or suspicious lesions. LYMPH NODES: n o cervical adenopathy, nodes normal. MENTAL STATUS: a lert and oriented x3, normal mood and affect. Assessment: * Assessment: 1. H ypertension - I10 (Primary) 2 . C OPD (chronic obstructive pulmonary disease) - J44.9 3 . B ack pain - M54.9 4 . S yncope - R55? 5. H /O fall - Z91.81 Plan: * Treatment: Notes: restarted fludrocortisone??2.?Back pain? Start traMADol HCl Tablet, 50 MG, 1 tablet as needed, Orally, tid, 7 days, 21 Tablet;?Start Methocarbamol Tablet, 500 MG, 1 tables, Orally, tid, 14 days, 42 Tablet.??3.?Syncope?Procedure: Holter Monitor - 3 days up to 14 days* 7 days * * Electronic signature of Deni Sanderson MD, [id number] on 09/13/2024 at 03:22 PM EDT Sign off status: Pending Visit Status: C DARYL (Check Out) * Provider: Mike Sanderson ([facility])MD Date: 09/11/2024 Generated for Patricio collins/Gabriella/eTj luissmitting on: 09/13/2024 03:22 PM EDT History and Physical Notes * HPI (History of Present Illness) Category Sub-Category Detail Notes Category Not es General pased out - not sure how long out - laid on floor for 14 hours seen in er - not taking fludrocortisone Examination Category Sub-Category Detail Notes Category Not es Physical Exam GENERAL: well developed, well nourished, in no acute distress HEAD: normocephalic/atraum atic EYES: pupils equal, round and reactive to light, conjunctivae and sclerae normal EARS: no deformity or lesi on of external ear, canals and TM appear normal bilaterally, TM's intact, not inflamed with normal light reflex, hearing grossly normal to conversational speech NOSE: no deformity, discha rge, inflammation, or lesions MOUTH: mucous membranes randy st, normal oropharynx and posterior pharynx without lesions or exudates, tongue normal, dentition normal NECK: neck supple, no mass es or palpable cervical nodes, trachea midline, thyroid without nodules, masses, tenderness, or enlargement CHEST: no chest wall deform ity, no chest wall tenderness LUNGS: normal respiratory e ffort and clear to auscultation, no wheezes, rales, or rhonchi, good air exchange CARDIO: regular rate and rhy thm, normal S1 and S2, nor murmur, rub, or gallop PULSES: normal capillary ref ill ABDOMEN: soft, non-distended, non-tender, no masses RECTAL: MUSCULOSKELETAL: no deformity or scol iosis noted, normal range of motion, joints normal, no erythema, edema, effusion, or ecchymosis EXTREMITY: multiple bruises con sistent wiht fall NEUROLOGIC: grossly normal SKIN: no rashes, ulceratio ns, or suspicious lesions LYMPH NODES: no cervical adenopat hy, nodes normal MENTAL STATUS: alert and oriented x 3, normal mood and affect
[2024-09-13] VITALS (21 sets, daily range): BP systolic 131–163; BP diastolic 67–109; PULSE 89–115; TEMP 36.6–37.1; O2SAT 77–93; BMI 30.6; BMI 30.2
--- OUTSIDE RECORDS SUMMARY | 2024-09-13 15:22 | XMS_ITS | Referral Summary ---
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
--- OUTSIDE RECORDS SUMMARY | 2024-09-13 15:22 | XMS_ITS | Clinical Summary ---
Author Organization [facility] Address [address] [place] [address] Care Team Providers Care Medical Biller Name Role Phone Unavailable Primary Care Provider [...]
--- OUTSIDE RECORDS SUMMARY | 2024-09-13 15:22 | XMS_ITS | Clinical Summary ---
Author Organization [facility] Address [address] [place] [address] Care Team Providers Care Mining Manager Name Role Phone Unavailable Primary Care Provider [...]
--- OUTSIDE RECORDS SUMMARY | 2024-09-13 15:22 | XMS_ITS ---
Author Organization [facility] Care Team Providers Care Crop Nutrition Scientist Name Role Phone LEVI SHINE Unavailable Unavailable Allergies and adverse reactions Code CodeSystem Substance Reaction Severity StartDate Concern Status 85812 RXNORM Vancomycin Unknown 06/16/[address] NSAIDs Severe Unknown active 7052 RXNORM Morphine Moderate 10/14/2015 active 1191 RXNORM Aspirin Unknown Unknown active Ancef Moderate Unknown active Care Team Name Role Address Phone Organization Dates LEVI SHINE [facility] [address] [place], [address], [place] (Office): : [facility] 01/06/2022 - 01/26/2022 Immunizations Immunization Status Vaccine [...] completed tuberculin skin test; unspecified formulation lotNumber: [id number] expiry: 04/01/2023 Mfg: par paharmaceutical Given 0.1 ml Right Forearm intradermally Step 1 of Multi-step with next step required 98 CVX created date: 01/07/2022 consent date: 01/07/2022 administer ed date: 01/07/2022 TB 2 Step Mantoux Skin Test completed tuberculin skin test; unspecified formulation lotNumber: [id number] expiry: 01/30/2022 Mfg: aplisol Given 0.1 ml Right Forearm intradermally Step 2 of Multi-step with next step required 98 CVX created date: 06/25/2021 consent date: 06/25/2021 administer ed date: 06/25/2021 TB 2 Step Mantoux Skin Test completed tuberculin skin test; unspecified formulation lotNumber: [id number] expiry: 01/30/2022 Mfg: PAR Hobson Given 0.1 ml Left Forearm intradermally Step 1 of Multi-step with next step required 98 CVX created date: 06/18/2021 consent date: 06/18/2021 administer ed date: 06/18/2021 Step 1 Read 06/20 by ABRAHAN TB 2 Step Mantoux Skin Test completed tuberculin skin test; unspecified formulation lotNumber: [id number] expiry: 11/27/2020 Mfg: par pahramceutical Given 0.1 ml Right Forearm intradermally Step 2 of Multi-step with next step required 98 CVX created date: 12/25/2019 consent date: 12/25/2019 administer ed date: 11/24/2019 Educated by Melody Gomez RN on 11/17/2019 Read 11/26/19 by BRITTANY TB 2 Step Mantoux Skin Test completed tuberculin skin test; unspecified formulation lotNumber: [id number] expiry: 05/30/2020 Mfg: PAR pharmacutical Given 0.1 ml Left Forearm intradermally Step 1 of Multi-step with next step required 98 CVX created date: 11/22/2019 consent date: 11/22/2019 administer ed date: 11/17/2019 Read 11/19/19 by BRITTANY [id number] completed pneumococcal polysaccharide vaccine, 23 valent 33 CVX created date: 06/16/2021 administer ed date: 01/15/2015 [id number] completed pneumococcal polysaccharide vaccine, 23 valent 33 CVX created date: 06/16/2021 administer ed date: 02/21/2013 Pneumovax 13 completed pneumococcal conjugate vaccine, 13 valent 133 CVX created date: 11/18/2019 administer ed date: 12/02/2015 SARS-COV-2 (COVID-19) completed SARS-COV-2 (COVID-19) vaccine, mRNA, spike protein, LNP, preservative free, 30 mcg/0.3mL dose Mfg: [employer] COVID 19 Step 2 of Multi-step with next step required 208 CVX created date: 06/16/2021 administer ed date: 08/16/2020 SARS-COV-2 (COVID-19) completed SARS-COV-2 (COVID-19) vaccine, mRNA, spike protein, LNP, preservative free, 30 mcg/0.3mL dose Mfg: [employer] COVID 19 Step 1 of Multi-step with next step required 208 CVX created date: 06/16/2021 administer ed date: 07/26/2020 SARS-COV-2 (COVID-19)(Dose 3) completed SARS-COV-2 (COVID-19) vaccine, vector non-replicating, recombinant spike protein-Ad26, preservative free, 0.5 mL lotNumber: [id number] expiry: 08/30/2021 Mfg: [employer] COVID 19 Given 0.3 ml Right Deltoid intramuscularly 212 CVX created date: 06/24/2021 consent date: 06/24/2021 administer ed date: 06/24/2021 Educated by Nohemi Nugent RN [facility] on 06/24/2021 Influenza-High Dose Quadrivalent completed Influenza, high-dose, split virus, quadrivalent, injectable, preservative free lotNumber: [id number] expiry: 07/14/2022 Mfg: [employer]Scimetrika [employer] Given 0.5 ml Right Deltoid intramuscularly 197 CVX created date: 01/12/2022 consent date: 01/12/2022 administer ed date: 01/12/2022 verbal consent given [employer] Bivalent Booster 1 completed SARS-COV-2 (COVID-19) vaccine, mRNA, spike protein, LNP, bivalent, preservative free, 30 mcg/0.3 mL dose, esteal-sucrose formulation lotNumber: [id number] expiry: 02/15/2022 Mfg: [employer] Covid-19 Bivalent Given 0.3 ml Left Deltoid [...] 1 PERSONAL HISTORY OF COVID-19 01/10/[address] active 2 VITAMIN D DEFICIENCY, UNSPECIFIED 01/10/[address] active 3 AFTERCARE FOLLOWING JOINT REPLACEMENT SURGERY 01/07/[address] active 4 UNILATERAL PRIMARY OSTEOARTHRITIS, RIGHT KNEE 01/07/[address] active 5 BENIGN NEOPLASM OF UNSPECIFIED ADRENAL GLAND 06/17/[address] active 6 DYSPHAGIA, OROPHARYNGEAL PHASE 06/17/[address] active 7 EFFUSION, UNSPECIFIED KNEE 06/17/[address] active 8 NEED FOR ASSISTANCE WITH PERSONAL CARE 06/17/[address] active 9 OTHER ABNORMALITIES OF GAIT AND MOBILITY 06/17/[address] active 10 OTHER INTERVERTEBRAL DISC DEGENERATION, LUMBAR REGION 06/17/[address] active 11 PERSONAL HISTORY OF PULMONARY EMBOLISM 06/17/[address] active 12 SYNCOPE AND COLLAPSE 06/17/[address] active 13 UNILATERAL PRIMARY OSTEOARTHRITIS, LEFT KNEE 11/18/[address] active 14 AFTERCARE FOLLOWING JOINT REPLACEMENT SURGERY 11/17/1906/16/[address] completed 15 ENCOUNTER FOR PROPHYLACTIC MEASURES, UNSPECIFIED 11/17/[address] active 16 MORBID (SEVERE) OBESITY DUE TO EXCESS CALORIES 11/17/[address] active 17 UNSPECIFIED OSTEOARTHRITIS, UNSPECIFIED SITE 11/17/[address] active 18 DIFFICULTY IN WALKING, NOT ELSEWHERE CLASSIFIED 10/13/[address] active 19 MUSCLE WEAKNESS (GENERALIZED) 10/13/[address] active Reason for Referral No Reasons for Referral Entered Social History Social History Observation Description Start Date End Date Code Code System Current Smoking Status Tobacco smoking consumption unknown 314084078 SNOMED CT Sex Assigned At Female 1955 44489-3 [facility] Gender Identity Vital Signs Code Code System Vitals Name Values and Units Timing Information 85497-8 [facility] Pain Level Value=10.0 01/26/2022 9279-1 [facility] Respiratory Rate Value=18.0 Units=/m in 01/25/2022 8462-4 [facility] Blood Pressure-Diastolic Value=64 Un its=mmHg 01/25/2022 8480-6 [facility] Blood Pressure-Systolic Erqeo=063 Un its=mmHg 01/25/2022 8310-5 [facility] Body Temperature Value=98.2 Units= F 01/25/2022 8867-4 [facility] Heart rate Value=64.0 Units=/min 56677-5 [facility] O2 % BldC Oximetry Value=99.0 Units= % 01/25/2022 39280-8 [facility] Weight Jqcjr=993.9 Units=Lbs 8302-2 [facility] Height Value=69.0 Units=Inches 11/17/2019
--- OUTSIDE RECORDS SUMMARY | 2024-09-13 15:23 | XMS_ITS | Clinical Summary ---
Author Organization [facility] Address [address] [place] [address] Care Team Providers Care Television Script Writer Name Role Phone Unavailable Primary Care Provider [...]
--- OUTSIDE RECORDS SUMMARY | 2024-09-13 15:23 | XMS_ITS | Encounter Summary ---
Author Organization [facility] Address [address] [place] [id number] Care Team Providers Care Building Code Administrator Name Role Phone Bill Sanderson MD Primary Care Provider + Trisha Trinity Pawan T[employer] DOWN MAN Unavailable +[phone] Source Comments In the event this information is protected by the Federal Confidentiality of Alcohol and Drug AbusePatient Records regulations: The Federal rules restrict any use of the information to criminally investigate or prosecute any alcohol or drug abuse patient.[facility] Encounter Details Date Type Department Care Team (Late st Contact Info) Description 2022 [place] [address] Provider, [facility] Medicare Coverage of Physical Exams [...] on filedocumented in this encounter Care Teams Building Code Administrator Relationship Specialty Start Date End Date Bill Sanderson MD PCP - General Family Medicine 05/19/13 Trinity Rico CNP [address] [place] [id number] Referring Internal Medicine 07/08/20 documented as of this encounter
--- OUTSIDE RECORDS SUMMARY | 2024-09-13 15:23 | XMS_ITS | Patient Health Record ---
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 Name Role Phone Deni Sanderson Primary Care Provider LEVI SANDERSON Unavailable [phone] Allergies Allergen (clinical drug ingredient) Drug/Non Drug Allergy documented on EMR Reaction Allergy Type Onset Date Status oxaprozin Daypro Unknown Drug Allergy Active methocarbamol Robaxin Unknown Drug Allergy Act lamonte aspirin Aspirin Unknown Drug Allergy Active baclofen Baclofen altered mental status, slept for days, falls Drug Allergy Active ibuprofen Ibuprofen Unknown Drug Allergy Active morphine Morphine Unknown Drug Allergy Active Results Component Value Reference Range Notes IRON Reviewed date:06/26/2024 08:23:41 PM Interpretation: Performing Lab: Notes/Report: [facility] , Iron 129.0 50.0-170.0 ug/dL Performing Lab: see note ML - [facility] LB VITAMIN D 25 [place] Reviewed date:06/26/2024 08:23:41 PM Interpretation: Performing Lab: Notes/Report: [facility] , Vitamin D 28.0 >100 ng/mL Potential Toxicity <20 ng/mL Vit D deficient 30-100 ng/mL Vit D sufficient 20-<30 ng/mL Vit D insufficient Performing Lab: see note ML - [facility] LB CBC AUTO DIFF Reviewed date:09/08/2024 09:11:18 PM Interpretation: Performing Lab: Notes/Report: [facility] , White Blood Count 15.9 4.0-11.0 10 3/uL Red Blood Count 4.41 4.20-5.40 10 6/uL Hemoglobin 14.2 12.0-16.0 g/dL Hematocrit 45.0 36.0-48.0 % Mean Corpuscular Volume 102.0 81.0-99.0 fL Mean Corpuscular Hemoglobin 32.2 26.7-34.0 pg Mean Corpuscular HGB Conc 31.6 29.9-35.2 g/dL Red Cell Distribution Width 13.5 11.0-15.0 % Platelet Count 242 150-450 10 3/uL Mean Platelet Volume 12.1 9.5-13.5 fL Neutrophils Percent Auto 74.5 43.0-75.0 % Lymphocytes Percent Auto 13.0 20.5-60.0 % Monocytes Percent Auto 10.7 1.7-12.0 % Eosinophils Percent Auto 0.8 0.9-7.0 % Basophils Percent Auto 0.7 0.2-2.0 % Immature Granulocytes Pct Auto 0.3 0.0-0.5 % Neutrophils Absolute Auto 11.8 1.4-6.5 10 3/uL Lymphocytes Absolute Auto 2.1 1.2-3.8 10 3/uL Monocytes Absolute Auto 1.7 0.3-0.8 10 3/uL Eosinophils Absolute Auto 0.1 0.0-0.7 10 3/uL Basophils Absolute Auto 0.1 0.0-0.1 10 3/uL Immature Granulocytes Abs Auto 0.05 0.00-0.03 10 3/uL Performing Lab: see note ML - [facility] LB CPK Reviewed date:09/08/2024 09:11:18 PM Interpretation: Performing Lab: Notes/Report: [facility] , Creatine Kinase 882 26-192 U/L RESULTS CALL ED TO PARVEZ LAY RN at 1056 Performing Lab: see note ML - [facility] LB LIPASE Reviewed date:09/08/2024 09:11:18 PM Interpretation: Performing Lab: Notes/Report: [facility] , Lipase 25.0 16.0-77.0 U/L Performing Lab: see note - [facility] LB PROF 14(COMP METB) Reviewed date:09/08/2024 09:11:18 PM Interpretation: Performing Lab: Notes/Report: [facility] , Sodium 137 136-145 mmol/L Potassium 5.7 3.5-5.1 mmol/L Chloride 106 98-107 mmol/L Carbon Dioxide 19.6 21.0-32.0 mmol/L Anion Gap 17.1 Glucose 120 74-106 mg/dL Blood Urea Nitrogen 31.0 7.0-18.0 mg/dL Creatinine 1.03 0.55-1.02 mg/dL Estimated GFR ( Abena >60 >=60 mL/min/1.73m 2 Estimated GFR (Non- Miroslava 53 >=60 mL/min/1.73m 2 BUN Creatinine Ratio 30.1 Calcium 9.1 8.5-10.1 mg/dL Bilirubin Total 0.7 0.2-1.0 mg/dL Aspartate Amino Transferase 35 15-37 U/L Alanine Aminotransferase 23 14-59 U/L Alkaline Phosphatase 98 46-116 U/L Total Protein 6.9 6.4-8.2 g/dL Albumin Level 3.6 3.4-5.0 g/dL Globulin 3.3 Albumin Globulin Ratio 1.1 Performing Lab: see note ML - [facility] LB Troponin I High Sensitivity Reviewed date:09/08/2024 09:11:18 PM Interpretation: Performing Lab: Notes/Report: [facility] , Troponin I High Sensitivity 9.1 4.0-51.3 pg/mL CUT-OFF POINTS HAVE BEEN ESTABLISHED BASED ON THE FOURTH DIAGNOSIS. UNIVERSAL DEFINITION OF MYOCARDIAL INFARCTION. THE UPPER WITH OTHER DIAGNOSTIC AND CLINICAL INFORMATION. REFERENCE LIMIT (URL) OF TROPONIN, DEFINED THE 99TH 99TH PERCENTILE = 51.4 PG/ML HAS BEEN CONFIRMED THE DECISION THRESHOLD FOR DE NOTE: HIGH-SENSITIVITY TROPONIN ASSAY IS NOT INTENDED TO BE PERCENTILE OF cTnI DISTRIBUTION IN A REFERENCE POPULATION, USED IN ISOLATION BUT SHOULD BE INTERPRETED IN CONJUNCTION Performing Lab: see note ML - [facility] LB ECG 12 lead Reviewed date:09/09/2024 04:34:24 PM Interpretation: Performing Lab: Notes/Report: Source Facility: [facility]-[address] [place] [address] [place] [address] Electrocardiograph Report Signed Patient: TRINITY HARPER MR#: [id number] : 1955 Acct:[id number] Age/Sex: 69 / F ADM Date: 09/08/24 Loc: ER Attending Dr: Ordering Physician: Pito Wharton Date of Service: 09/08/24 Procedure(s): ECG 12 lead Accession Number(s): [id number] cc: [facility] Test Date: 2024-09-08 Pat Name: TRINITY HARPER Department: Room: - 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 Measurements Intervals [place] Rate: 96 P: 68 MA: 162 QRS: 53 QRSD: 68 T: 40 QT: 338 QTc: 391 Interpretive Statements 1100 Sinus rhythm 9110 normal ECG Compared to ECG 04/28/2023 13:47:42 Premature supraventricular complexes no longer present Electronically Signed On 09-08-2024 21:52:26 EDT by GELACIO SHORT M.D. 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 Measurements Intervals [place] Rate: 96 P: 68 MA: 162 QRS: 53 QRSD: 68 T: 40 QT: 338 QTc: 391 Interpretive Statements 1100 Sinus rhythm 9110 normal ECG Compared to ECG 04/28/2023 13:47:42 Premature supraventricular complexes no longer present Electronically Vidhya d On 09-08-2024 21:52:26 EDT by GELACIO SHORT M.D. Dictated By: GELACIO SHORT Signed By: 09/08/24 2152 DD/ 0845 TD/TT: Watch Parts Inspector: CT chest wo con Reviewed date:09/08/2024 09:11:18 PM Interpretation: Performing Lab: Notes/Report: Source Facility: [place] [address] [place] [address] CT Scan Report Signed Patient: TRINITY HARPER MR#: [id number] : 1955 Acct:[id number] Age/Sex: 69 / F ADM Date: 09/08/24 Loc: ER Attending Dr: Ordering Physician: Pito Wharton Date of Service: 09/08/24 Procedure(s): CT chest wo con Accession Number(s): [id number] cc: Levi Sanderson M.D. [place] [address] Patient Name: TRINITY HARPER MRN: [id number] date: 1955 Sex: F Assigned Patient Location: ER Current Patient Location: ED.MAIN Accession/Order Number: [id number] Exam Date: 09/08/2024 10:50 Report Date: 09/08/2024 11:07 At the request of: PITO WHARTON MD Procedure: CT cervical spine wo con Unenhanced head CT TECHNIQUE: Contiguous axial imaging of the head. The CT exam was performed using one or more the following dose reduction techniques: Automated exposure control, adjustment of the MA and/or Kv according to patient size, or use of the iterative reconstruction technique. COMPARISON: None HISTORY: VENTRICLES: Within normal limits ATROPHY: None BRAIN PARENCHYMA: Adequate hinds-white matter differentiation identified. HEMORRHAGE: None HERNIATION: No mass effect or herniation INFARCTION: No recent vascular distribution infarction is seen. EXTRA-AXIAL FLUID COLLECTIONS None MIDBRAIN: Unremarkable JAD: Unremarkable MEDULLA: Unremarkable SINUSES: Unremarkable ORBITS: Grossly unremarkable MASTOIDS: Unremarkable BONY STRUCTURES Intact ADDITIONAL FINDINGS: CT/CT chest wo con IMPRESSION: No acute findings. CT Cervical Spine withoutcontrast TECHNIQUE: Axial imaging with 2-D and 3-D reconstruction. The CT exam was performed using one or more the following dose reduction techniques: Automated exposure control, adjustment of the MA and/or Kv according to patient size, or use of the iterative reconstruction technique. COMPARISON: None HISTORY: POST SURGERY CHANGES: None BONY ALIGNMENT: Straightening with mild degenerative listhesis BONY SPINAL CANAL: Patent central bony canal FRACTURE: None BONY LESIONS: None SOFT TISSUES: Unremarkable DEGENERATIVE CHANGES: Enhancement cervical degenerative changes. LUNG APICES: Unremarkable ADDITIONAL FINDINGS: Calcified plaquing of carotid bifurcations. IMPRESSION: No acute process CT Chest without contrast TECHNIQUE: Axial imaging with 2-D reconstruction. The CT exam was performed using one or more the following dose reduction techniques: Automated exposure control, adjustment of the MA and/or Kv according to patient size, or use of the iterative reconstruction technique. History: Concern for syncopal episode. Neck pain. Left cheek bruising. Right shoulder pain. COMPARISON: None THYROID: Unremarkable TRACHEA AND BRONCHI: Patent ESOPHAGUS: Unremarkable. HEART: Within normal limits PERICARDIAL EFFUSION: None CORONARY ARTERY CALCIFICATION: Present MEDIASTINUM: No adenopathy. No pneumoperitoneum. No mediastinal hematoma. PULMONARY ABRAN: No hilar mass or adenopathy is seen. THORACIC AORTA Unremarkable LUNG NODULE None LUNGS: Left basilar linear scarring. No new acute lung findings. PLEURAL EFFUSION: None PNEUMOTHORAX: No pneumothorax seen. CHEST WALL: No abnormality AXILLA:Unremarkable BONY STRUCTURES similar less than 50% T11 compression fracture. Unchanged and chronic. Multiple old left rib fractures. T5 superior endplate compression with mild height loss. UPPER ABDOMEN: Unchanged up to 4 cm left adrenal lesion. IMPRESSION: No acute traumatic chest findings. No acute cardiopulmonary disease. Chronic fractures. Stable left adrenal lesion. Impression dictated by: Pito Barrientos M.D. 09/08/2024 11:07 AM Dictation Location: [place] [address] Electronically authenticated by: [id number] Y Date: 09/08/2024 11:07 Dictated By: Pito Barrientos D.O. Signed By: 09/08/24 1110 DD/ 1107 TD/TT: Watch Parts Inspector: [place] [address] CT Scan Report Signed Patient: TINO HARPER MR#: [id number] : 1955 Acct:[id number] Age/Sex: 69 / F ADM Date: 09/08/24 Loc: ER Attending Dr: Ordering Physician: Pito Wharton Date of Service: 09/08/24 Procedure(s): CT vasu st wo con Accession Number(s): [id number] cc: Levi Sanderson M.D. [address] [address] Patient Name: TRINITY HARPER MRN: [id number] date: 1955 Sex: F Assigned Patient Location: ER Current Patient Loca tion: ED.MAIN Accession/Order Numb er: [id number] Exam Date: 09/08/2024 10:50 Report Date: 09/08/2024 11:07 At the request of: PITO WHARTON MD Procedure: CT cervic al spine wo con Unenhanced head CT TECHNIQUE: Contiguou s axial imaging of the head. The CT exam was performed using one or more th e following dose reduction techniques: Automated exposure control, adjustment of the MA and/or Kv according to patient size, or use of the iterative reconstruction technique. COMPARISON: None HISTORY: VENTRICLES: Within n ormal limits ATROPHY: None BRAIN PARENCHYMA: Adequate hinds-white matter differentiation identified. HEMORRHAGE: None HERNIATION: No mass effect or herniation INFARCTION: No recen t vascular distribution infarction is seen. EXTRA-AXIAL FLUID COLLECTIONS None MIDBRAIN: Unremarkable JAD: Unremarkable MEDULLA: Unremarkable SINUSES: Unremarkable ORBITS: Grossly unremarkable MASTOIDS: Unremarkable BONY STRUCTURES Intact ADDITIONAL FINDINGS: C T/CT chest wo con IMPRESSION: No acute findings. CT Cervical Spine withoutcontrast TECHNIQUE: Axial terese ging with 2-D and 3-D reconstruction. The CT exam was performed using one or more the following dose reduction techniques: Automated exposure control, adjustment of the MA and/or Kv according to patient size, or use of the iterative reconstruction technique. COMPARISON: None HISTORY: POST SURGERY CHANGES : None BONY ALIGNMENT: Straightening with mild degenerative listhesis BONY SPINAL CANAL: P atent central bony canal FRACTURE: None BONY LESIONS: None SOFT TISSUES: Unremarkable DEGENERATIVE CHANGES : Enhancement cervical degenerative changes. LUNG APICES: Unremarkable ADDITIONAL FINDINGS: Calcified plaquing of carotid bifurcations. IMPRESSION: No acute process CT Chest without contrast TECHNIQUE: Axial terese ging with 2-D reconstruction. The CT exam was performed using one or more th e following dose reduction techniques: Automated exposure control, adjustment of the MA and/or Kv according to patient size, or use of the iterative reconstruction technique. History: Concern for syncopal episode. Neck pain. Left cheek bruising. Right shoulder pain. COMPARISON: None THYROID: Unremarkable TRACHEA AND BRONCHI: Patent ESOPHAGUS: Unremarkable. HEART: Within normal limits PERICARDIAL EFFUSION : None CORONARY ARTERY CALCIFICATION: Present MEDIASTINUM: No adenopathy. No pneumoperitoneum. No mediastinal hematoma. PULMONARY ABRAN: No h ilar mass or adenopathy is seen. THORACIC AORTA Unremarkable LUNG NODULE None LUNGS: Left basilar linear scarring. No new acute lung findings. PLEURAL EFFUSION: None PNEUMOTHORAX: No pneumothorax seen. CHEST WALL: No abnormality AXILLA:Unremarkable BONY STRUCTURES rosina lar less than 50% T11 compression fracture. Unchanged and chronic. Multiple ol d left rib fractures. T5 superior endplate compression with mild height loss. UPPER ABDOMEN: Uncha nged up to 4 cm left adrenal lesion. IMPRESSION: No acute traumatic chest findings. No acute cardiopulmonary disease. Chronic fractures. Stable left adrenal lesion. Impression dictated by: Pito Barrientos M.D. 09/08/2024 11:07 AM Dictation Location: [place] [address] Electronically authenticated by: [id number] Y Date: 09/08/2024 11:07 Dictated By: Popeye Barrientos D.O. Signed By: 09/08/24 1110 DD/ 1107 TD/TT: Watch Parts Inspector: CT head/brain wo con Reviewed date:09/08/2024 09:11:18 PM Interpretation: Performing Lab: Notes/Report: Source Facility: [place] [address] CT Scan Report Signed Patient: TRINITY HARPER MR#: [id number] : 1955 Acct:[id number] Age/Sex: 69 / F ADM Date: 09/08/24 Loc: ER Attending Dr: Ordering Physician: Pito Wharton Date of Service: 09/08/24 Procedure(s): CT head/brain wo con Accession Number(s): [id number] cc: Levi Sanderson M.D. [place] [address] Patient Name: TRINITY HARPER MRN: [id number] date: 1955 Sex: F Assigned Patient Location: ER Current Patient Location: ED.MAIN Accession/Order Number: [id number] Exam Date: 09/08/2024 10:50 Report Date: 09/08/2024 11:07 At the request of: PITO WHARTON MD Procedure: CT cervical spine wo con Unenhanced head CT TECHNIQUE: Contiguous axial imaging of the head. The CT exam was performed using one or more the following dose reduction techniques: Automated exposure control, adjustment of the MA and/or Kv according to patient size, or use of the iterative reconstruction technique. COMPARISON: None HISTORY: VENTRICLES: Within normal limits ATROPHY: None BRAIN PARENCHYMA: Adequate hinds-white matter differentiation identified. HEMORRHAGE: None HERNIATION: No mass effect or herniation INFARCTION: No recent vascular distribution infarction is seen. EXTRA-AXIAL FLUID COLLECTIONS None MIDBRAIN: Unremarkable JAD: Unremarkable MEDULLA: Unremarkable SINUSES: Unremarkable ORBITS: Grossly unremarkable MASTOIDS: Unremarkable BONY STRUCTURES Intact ADDITIONAL FINDINGS: CT/CT head/brain wo con IMPRESSION: No acute findings. CT Cervical Spine withoutcontrast TECHNIQUE: Axial imaging with 2-D and 3-D reconstruction. The CT exam was performed using one or more the following dose reduction techniques: Automated exposure control, adjustment of the MA and/or Kv according to patient size, or use of the iterative reconstruction technique. COMPARISON: None HISTORY: POST SURGERY CHANGES: None BONY ALIGNMENT: Straightening with mild degenerative listhesis BONY SPINAL CANAL: Patent central bony canal FRACTURE: None BONY LESIONS: None SOFT TISSUES: Unremarkable DEGENERATIVE CHANGES: Enhancement cervical degenerative changes. LUNG APICES: Unremarkable ADDITIONAL FINDINGS: Calcified plaquing of carotid bifurcations. IMPRESSION: No acute process CT Chest without contrast TECHNIQUE: Axial imaging with 2-D reconstruction. The CT exam was performed using one or more the following dose reduction techniques: Automated exposure control, adjustment of the MA and/or Kv according to patient size, or use of the iterative reconstruction technique. History: Concern for syncopal episode. Neck pain. Left cheek bruising. Right shoulder pain. COMPARISON: None THYROID: Unremarkable TRACHEA AND BRONCHI: Patent ESOPHAGUS: Unremarkable. HEART: Within normal limits PERICARDIAL EFFUSION: None CORONARY ARTERY CALCIFICATION: Present MEDIASTINUM: No adenopathy. No pneumoperitoneum. No mediastinal hematoma. PULMONARY ABRAN: No hilar mass or adenopathy is seen. THORACIC AORTA Unremarkable LUNG NODULE None LUNGS: Left basilar linear scarring. No new acute lung findings. PLEURAL EFFUSION: None PNEUMOTHORAX: No pneumothorax seen. CHEST WALL: No abnormality AXILLA:Unremarkable BONY STRUCTURES similar less than 50% T11 compression fracture. Unchanged and chronic. Multiple old left rib fractures. T5 superior endplate compression with mild height loss. UPPER ABDOMEN: Unchanged up to 4 cm left adrenal lesion. IMPRESSION: No acute traumatic chest findings. No acute cardiopulmonary disease. Chronic fractures. Stable left adrenal lesion. Impression dictated by: Pito Barrientos M.D. 09/08/2024 11:07 AM Dictation Location: [place] [address] Electronically authenticated by: [id number] Y Date: 09/08/2024 11:07 Dictated By: Pito Barrientos D.O. Signed By: 09/08/24 1110 DD/ 1107 TD/TT: Watch Parts Inspector: [place] [address] CT Scan Report Signed Patient: TINO HARPER MR#: [id number] : 1955 Acct:[id number] Age/Sex: 69 / F ADM Date: 09/08/24 Loc: ER Attending Dr: Ordering Physician: Pito Wharton Date of Service: 09/08/24 Procedure(s): CT head/brain wo con Accession Number(s): [id number] cc: Levi Sanderson M.D. [place] [id number] Patient Name: TRINITY HARPER MRN: [id number] date: 1955 Sex: F Assigned Patient Location: ER Current Patient Loca tion: ED.MAIN Accession/Order Numb er: [id number] Exam Date: 09/08/2024 10:50 Report Date: 09/08/2024 11:07 At the request of: PITO WHARTON MD Procedure: CT cervic al spine wo con Unenhanced head CT TECHNIQUE: Contiguou s axial imaging of the head. The CT exam was performed using one or more th e following dose reduction techniques: Automated exposure control, adjustment of the MA and/or Kv according to patient size, or use of the iterative reconstruction technique. COMPARISON: None HISTORY: VENTRICLES: Within n ormal limits ATROPHY: None BRAIN PARENCHYMA: Adequate hinds-white matter differentiation identified. HEMORRHAGE: None HERNIATION: No mass effect or herniation INFARCTION: No recen t vascular distribution infarction is seen. EXTRA-AXIAL FLUID COLLECTIONS None MIDBRAIN: Unremarkable JAD: Unremarkable MEDULLA: Unremarkable SINUSES: Unremarkable ORBITS: Grossly unremarkable MASTOIDS: Unremarkable BONY STRUCTURES Intact ADDITIONAL FINDINGS: C T/CT head/brain wo con IMPRESSION: No acute findings. CT Cervical Spine withoutcontrast TECHNIQUE: Axial terese ging with 2-D and 3-D reconstruction. The CT exam was performed using one or more the following dose reduction techniques: Automated exposure control, adjustment of the MA and/or Kv according to patient size, or use of the iterative reconstruction technique. COMPARISON: None HISTORY: POST SURGERY CHANGES : None BONY ALIGNMENT: Straightening with mild degenerative listhesis BONY SPINAL CANAL: P atent central bony canal FRACTURE: None BONY LESIONS: None SOFT TISSUES: Unremarkable DEGENERATIVE CHANGES : Enhancement cervical degenerative changes. LUNG APICES: Unremarkable ADDITIONAL FINDINGS: Calcified plaquing of carotid bifurcations. IMPRESSION: No acute process CT Chest without contrast TECHNIQUE: Axial terese ging with 2-D reconstruction. The CT exam was performed using one or more th e following dose reduction techniques: Automated exposure control, adjustment of the MA and/or Kv according to patient size, or use of the iterative reconstruction technique. History: Concern for syncopal episode. Neck pain. Left cheek bruising. Right shoulder pain. COMPARISON: None THYROID: Unremarkable TRACHEA AND BRONCHI: Patent ESOPHAGUS: Unremarkable. HEART: Within normal limits PERICARDIAL EFFUSION : None CORONARY ARTERY CALCIFICATION: Present MEDIASTINUM: No adenopathy. No pneumoperitoneum. No mediastinal hematoma. PULMONARY ABRAN: No h ilar mass or adenopathy is seen. THORACIC AORTA Unremarkable LUNG NODULE None LUNGS: Left basilar linear scarring. No new acute lung findings. PLEURAL EFFUSION: None PNEUMOTHORAX: No pneumothorax seen. CHEST WALL: No abnormality AXILLA:Unremarkable BONY STRUCTURES ros[place] lar less than 50% T11 compression fracture. Unchanged and chronic. Multiple ol d left rib fractures. T5 superior endplate compression with mild height loss. UPPER ABDOMEN: Uncha nged up to 4 cm left adrenal lesion. IMPRESSION: No acute traumatic chest findings. No acute cardiopulmonary disease. Chronic fractures. Stable left adrenal lesion. Impression dictated by: Pito Barrientos M.D. 09/08/2024 11:07 AM Dictation Location: [place] [address] Electronically authenticated by: [id number] Y Date: 09/08/2024 11:07 Dictated By: Popeye Barrientos D.O. Signed By: 09/08/24 1110 DD/ 1107 TD/TT: Watch Parts Inspector: XR knee YURI 4V Reviewed date:09/08/2024 09:11:18 PM Interpretation: Performing Lab: Notes/Report: Source Facility: [place] [address] XRay Report Signed Patient: TRINITY HARPER MR#: [id number] : 1955 Acct:[id number] Age/Sex: 69 / F ADM Date: 09/08/24 Loc: ER Attending Dr: Ordering Physician: Pito Wharton Date of Service: 09/08/24 Procedure(s): XR knee YURI 4V Accession Number(s): [id number] cc: Levi Sanderson M.D.; Pito Wharton [place] [address] Patient Name: TRINITY HARPER MRN: [id number] date: 1955 Sex: F Assigned Patient Location: ED.MAIN Current Patient Location: ED.MAIN Accession/Order Number: [id number] Exam Date: 09/08/2024 11:08 Report Date: 09/08/2024 11:11 At the request of: PITO WHARTON MD Procedure: XR shoulder RT min 2V 4 views both knees HISTORY: Syncopal episode. Bilateral knee pain shoulder pain Bilateral knee arthroplasties. No hardware failure. No acute displaced fracture. No joint effusion. Unremarkable soft tissues. Benign soft tissue calcification. Atherosclerosis. XR/XR knee YURI 4V IMPRESSION: Unremarkable bilateral knee arthroplasties. No acute displaced fracture. 3 views right shoulder Diffuse osteopenia. Mild degeneration. Adequate bony alignment. No acute fracture. Surgical clips. IMPRESSION: No acute displaced fracture. Diffuse osteopenia and degenerative change. Impression dictated by: Pito Barrientos M.D. 09/08/2024 11:11 AM Dictation Location: [facility] Electronically authenticated by: [id number] Y Date: 09/08/2024 11:11 Dictated By: Pito Barrientos D.O. Signed By: 09/08/24 1114 DD/ 1111 TD/TT: Watch Parts Inspector: [place] [address] XRay Report Signed Patient: TINO HARPER MR#: [id number] : 1955 Acct:[id number] Age/Sex: 69 / F ADM Date: 09/08/24 Loc: ER Attending Dr: Ordering Physician: Pito Wharton Date of Service: 09/08/24 Procedure(s): XR kne e YURI 4V Accession Number(s): [id number] cc: Levi Sanderson M.D. ; Pito Wharton [place] [address] Patient Name: TRINITY HARPER MRN: [id number] date: 1955 Sex: F Assigned Patient Location: ED.MAIN Current Patient Loca tion: ED.MAIN Accession/Order Numb er: [id number] Exam Date: 09/08/2024 11:08 Report Date: 09/08/2024 11:11 At the request of: PITO WHARTON MD Procedure: XR should er RT min 2V 4 views both knees HISTORY: Syncopal episode. Bilateral knee pain shoulder pain Bilateral knee arthroplasties. No hardware failure. No acute displaced fracture. No joint effusion. Unremarkable soft tissues. Benign soft tissue calcification. Atherosclerosis. X R/XR knee YUIR 4V IMPRESSION: Unremark able bilateral knee arthroplasties. No acute displaced fracture. 3 views right shoulder Diffuse osteopenia. Mild degeneration. Adequate bony alignment. No acute fracture. Surgical clips. IMPRESSION: No acute displaced fracture. Diffuse osteopenia and degenerative change. Impression dictated by: Pito Barrientos M.D. 09/08/2024 11:11 AM Dictation Location: [facility] Electronically authenticated by: [id number] Y Date: 09/08/2024 11:11 Dictated By: Popeye Barrientos D.O. Signed By: 09/08/24 1114 DD/ 1111 TD/TT: Watch Parts Inspector: XR shoulder RT min 2V Reviewed date:09/08/2024 09:11:18 PM Interpretation: Performing Lab: Notes/Report: Source Facility: [place] [address] XRay Report Signed Patient: TRINITY HARPER MR#: [id number] : 1955 Acct:[id number] Age/Sex: 69 / F ADM Date: 09/08/24 Loc: ER Attending Dr: Ordering Physician: Pito Wharton Date of Service: 09/08/24 Procedure(s): XR shoulder RT min 2V Accession Number(s): [id number] cc: Levi Sanderson M.D.; Pito Wharton [place] [address] Patient Name: TRINITY HARPER MRN: [id number] date: 1955 Sex: F Assigned Patient Location: ED.MAIN Current Patient Location: ED.MAIN Accession/Order Number: [id number] Exam Date: 09/08/2024 11:08 Report Date: 09/08/2024 11:11 At the request of: PITO WHARTON MD Procedure: XR shoulder RT min 2V 4 views both knees HISTORY: Syncopal episode. Bilateral knee pain shoulder pain Bilateral knee arthroplasties. No hardware failure. No acute displaced fracture. No joint effusion. Unremarkable soft tissues. Benign soft tissue calcification. Atherosclerosis. XR/XR shoulder RT min 2V IMPRESSION: Unremarkable bilateral knee arthroplasties. No acute displaced fracture. 3 views right shoulder Diffuse osteopenia. Mild degeneration. Adequate bony alignment. No acute fracture. Surgical clips. IMPRESSION: No acute displaced fracture. Diffuse osteopenia and degenerative change. Impression dictated by: Pito Barrientos M.D. 09/08/2024 11:11 AM Dictation Location: [id number] Electronically authenticated by: [id number] Y Date: 09/08/2024 11:11 Dictated By: Pito Barrientos D.O. Signed By: 09/08/24 1114 DD/ 1111 TD/TT: Watch Parts Inspector: [place] [address] XRay Report Signed Patient: TINO HARPER MR#: [id number] : 1955 Acct:[id number] Age/Sex: 69 / F ADM Date: 09/08/24 Loc: ER Attending Dr: Ordering Physician: Pito Wharton Date of Service: 09/08/24 Procedure(s): XR ibis ulder RT min 2V Accession Number(s): [id number] cc: Levi Sanderson M.D. ; Pito Wharton [place] [address] Patient Name: TRINITY HARPER MRN: [id number] date: 1955 Sex: F Assigned Patient Location: ED.MAIN Current Patient Loca tion: ED.MAIN Accession/Order Numb er: [id number] Exam Date: 09/08/2024 11:08 Report Date: 09/08/2024 11:11 At the request of: PITO WHARTON MD Procedure: XR should er RT min 2V 4 views both knees HISTORY: Syncopal episode. Bilateral knee pain shoulder pain Bilateral knee arthroplasties. No hardware failure. No acute displaced fracture. No joint effusion. Unremarkable soft tissues. Benign soft tissue calcification. Atherosclerosis. X R/XR shoulder RT min 2V IMPRESSION: Unremark able bilateral knee arthroplasties. No acute displaced fracture. 3 views right shoulder Diffuse osteopenia. Mild degeneration. Adequate bony alignment. No acute fracture. Surgical clips. IMPRESSION: No acute displaced fracture. Diffuse osteopenia and degenerative change. Impression dictated by: Pito Barrientos M.D. 09/08/2024 11:11 AM Dictation Location: [place] [address] Electronically authenticated by: [id number] Y Date: 09/08/2024 11:11 Dictated By: Popeye Barrientos D.O. Signed By: 09/08/24 1114 DD/ 1111 TD/TT: Watch Parts Inspector: CT cervical spine wo con Reviewed date:09/08/2024 09:11:18 PM Interpretation: Performing Lab: Notes/Report: Source Facility: [place] [address] CT Scan Report Signed Patient: TRINITY HARPER MR#: [id number] : 1955 Acct:[id number] Age/Sex: 69 / F ADM Date: 09/08/24 Loc: ER Attending Dr: Ordering Physician: Pito Wharton Date of Service: 09/08/24 Procedure(s): CT cervical spine wo con Accession Number(s): [id number] cc: Levi Sanderson M.D. [place] [address] Patient Name: TRINITY HARPER MRN: [id number] date: 1955 Sex: F Assigned Patient Location: ER Current Patient Location: ED.MAIN Accession/Order Number: [id number] Exam Date: 09/08/2024 10:50 Report Date: 09/08/2024 11:07 At the request of: PITO WHARTON MD Procedure: CT cervical spine wo con Unenhanced head CT TECHNIQUE: Contiguous axial imaging of the head. The CT exam was performed using one or more the following dose reduction techniques: Automated exposure control, adjustment of the MA and/or Kv according to patient size, or use of the iterative reconstruction technique. COMPARISON: None HISTORY: VENTRICLES: Within normal limits ATROPHY: None BRAIN PARENCHYMA: Adequate hinds-white matter differentiation identified. HEMORRHAGE: None HERNIATION: No mass effect or herniation INFARCTION: No recent vascular distribution infarction is seen. EXTRA-AXIAL FLUID COLLECTIONS None MIDBRAIN: Unremarkable JAD: Unremarkable MEDULLA: Unremarkable SINUSES: Unremarkable ORBITS: Grossly unremarkable MASTOIDS: Unremarkable BONY STRUCTURES Intact ADDITIONAL FINDINGS: CT/CT cervical spine wo con IMPRESSION: No acute findings. CT Cervical Spine withoutcontrast TECHNIQUE: Axial imaging with 2-D and 3-D reconstruction. The CT exam was performed using one or more the following dose reduction techniques: Automated exposure control, adjustment of the MA and/or Kv according to patient size, or use of the iterative reconstruction technique. COMPARISON: None HISTORY: POST SURGERY CHANGES: None BONY ALIGNMENT: Straightening with mild degenerative listhesis BONY SPINAL CANAL: Patent central bony canal FRACTURE: None BONY LESIONS: None SOFT TISSUES: Unremarkable DEGENERATIVE CHANGES: Enhancement cervical degenerative changes. LUNG APICES: Unremarkable ADDITIONAL FINDINGS: Calcified plaquing of carotid bifurcations. IMPRESSION: No acute process CT Chest without contrast TECHNIQUE: Axial imaging with 2-D reconstruction. The CT exam was performed using one or more the following dose reduction techniques: Automated exposure control, adjustment of the MA and/or Kv according to patient size, or use of the iterative reconstruction technique. History: Concern for syncopal episode. Neck pain. Left cheek bruising. Right shoulder pain. COMPARISON: None THYROID: Unremarkable TRACHEA AND BRONCHI: Patent ESOPHAGUS: Unremarkable. HEART: Within normal limits PERICARDIAL EFFUSION: None CORONARY ARTERY CALCIFICATION: Present MEDIASTINUM: No adenopathy. No pneumoperitoneum. No mediastinal hematoma. PULMONARY ABRAN: No hilar mass or adenopathy is seen. THORACIC AORTA Unremarkable LUNG NODULE None LUNGS: Left basilar linear scarring. No new acute lung findings. PLEURAL EFFUSION: None PNEUMOTHORAX: No pneumothorax seen. CHEST WALL: No abnormality AXILLA:Unremarkable BONY STRUCTURES similar less than 50% T11 compression fracture. Unchanged and chronic. Multiple old left rib fractures. T5 superior endplate compression with mild height loss. UPPER ABDOMEN: Unchanged up to 4 cm left adrenal lesion. IMPRESSION: No acute traumatic chest findings. No acute cardiopulmonary disease. Chronic fractures. Stable left adrenal lesion. Impression dictated by: Pito Barrientos M.D. 09/08/2024 11:07 AM Dictation Location: [place] [address] Electronically authenticated by: [id number] Y Date: 09/08/2024 11:07 Dictated By: Pito Barrientos D.O. Signed By: 09/08/24 1110 DD/ 1107 TD/TT: Watch Parts Inspector: [place] [address] CT Scan Report Signed Patient: TINO HARPER MR#: [id number] : 1955 Acct:[id number] Age/Sex: 69 / F ADM Date: 09/08/24 Loc: ER Attending Dr: Ordering Physician: Pito Wharton Date of Service: 09/08/24 Procedure(s): CT cer vical spine wo con Accession Number(s): [id number] cc: Levi Sanderson M.D. [address] [address] Patient Name: TRINITY HARPER MRN: [id number] date: 1955 Sex: F Assigned Patient Location: ER Current Patient Loca tion: ED.MAIN Accession/Order Numb er: [id number] Exam Date: 09/08/2024 10:50 Report Date: 09/08/2024 11:07 At the request of: PITO WHARTON MD Procedure: CT cervic al spine wo con Unenhanced head CT TECHNIQUE: Contiguou s axial imaging of the head. The CT exam was performed using one or more th e following dose reduction techniques: Automated exposure control, adjustment of the MA and/or Kv according to patient size, or use of the iterative reconstruction technique. COMPARISON: None HISTORY: VENTRICLES: Within n ormal limits ATROPHY: None BRAIN PARENCHYMA: Adequate hinds-white matter differentiation identified. HEMORRHAGE: None HERNIATION: No mass effect or herniation INFARCTION: No recen t vascular distribution infarction is seen. EXTRA-AXIAL FLUID COLLECTIONS None MIDBRAIN: Unremarkable JAD: Unremarkable MEDULLA: Unremarkable SINUSES: Unremarkable ORBITS: Grossly unremarkable MASTOIDS: Unremarkable BONY STRUCTURES Intact ADDITIONAL FINDINGS: C T/CT cervical spine wo con IMPRESSION: No acute findings. CT Cervical Spine withoutcontrast TECHNIQUE: Axial terese ging with 2-D and 3-D reconstruction. The CT exam was performed using one or more the following dose reduction techniques: Automated exposure control, adjustment of the MA and/or Kv according to patient size, or use of the iterative reconstruction technique. COMPARISON: None HISTORY: POST SURGERY CHANGES : None BONY ALIGNMENT: Straightening with mild degenerative listhesis BONY SPINAL CANAL: P atent central bony canal FRACTURE: None BONY LESIONS: None SOFT TISSUES: Unremarkable DEGENERATIVE CHANGES : Enhancement cervical degenerative changes. LUNG APICES: Unremarkable ADDITIONAL FINDINGS: Calcified plaquing of carotid bifurcations. IMPRESSION: No acute process CT Chest without contrast TECHNIQUE: Axial terese ging with 2-D reconstruction. The CT exam was performed using one or more th e following dose reduction techniques: Automated exposure control, adjustment of the MA and/or Kv according to patient size, or use of the iterative reconstruction technique. History: Concern for syncopal episode. Neck pain. Left cheek bruising. Right shoulder pain. COMPARISON: None THYROID: Unremarkable TRACHEA AND BRONCHI: Patent ESOPHAGUS: Unremarkable. HEART: Within normal limits PERICARDIAL EFFUSION : None CORONARY ARTERY CALCIFICATION: Present MEDIASTINUM: No adenopathy. No pneumoperitoneum. No mediastinal hematoma. PULMONARY ABRAN: No h ilar mass or adenopathy is seen. THORACIC AORTA Unremarkable LUNG NODULE None LUNGS: Left basilar linear scarring. No new acute lung findings. PLEURAL EFFUSION: None PNEUMOTHORAX: No pneumothorax seen. CHEST WALL: No abnormality AXILLA:Unremarkable BONY STRUCTURES [place] lar less than 50% T11 compression fracture. Unchanged and chronic. Multiple ol d left rib fractures. T5 superior endplate compression with mild height loss. UPPER ABDOMEN: Uncha nged up to 4 cm left adrenal lesion. IMPRESSION: No acute traumatic chest findings. No acute cardiopulmonary disease. Chronic fractures. Stable left adrenal lesion. Impression dictated by: Pito Barrientos M.D. 09/08/2024 11:07 AM Dictation Location: [place] [address] Electronically authenticated by: [id number] Y Date: 09/08/2024 11:07 Dictated By: Popeye Barrientos D.O. Signed By: 09/08/24 1110 DD/ 1107 TD/TT: Watch Parts Inspector: Type and Screen Reviewed date:09/08/2024 09:11:18 PM Interpretation: Performing Lab: Notes/Report: [facility] , Blood Type A Positive Antibody Screen NEGATIVE Prothrombin Time INR Reviewed date:09/08/2024 09:11:18 PM Interpretation: Performing Lab: Notes/Report: [facility] , Prothrombin Time 10.1 9.0-11.6 sec INR 0.95 2.5-3.5 FOR PROSTHETIC HEART VALVE REPLACEMENT 2.0-3.0 CONDITIONS NOT LISTED BELOW 2.5-3.5 RECURRENT THROMBOSIS DESIRED INR: Performing Lab: see note - [facility] LB LACTATE or LACTIC ACID Reviewed date:09/08/2024 09:11:18 PM Interpretation: Performing Lab: Notes/Report: [facility] , Lactate/Lactic Acid 1.4 0.4-2.0 mmol/L Performing Lab: see note - [facility] LB TSH Reviewed date:06/26/2024 08:23:41 PM Interpretation: Performing Lab: Notes/Report: [facility] , Thyroid Stimulating Hormone 1.104 0.358-3.740 uIU/mL Performing Lab: see note ML - [facility] LB T4 Reviewed date:06/26/2024 08:23:41 PM Interpretation: Performing Lab: Notes/Report: [facility] , T4 Thyroxine 5.00 4.80-13.90 ug/dL Performing Lab: see note - [facility] LB PROF 14(COMP METB) Reviewed date:06/26/2024 08:23:41 PM Interpretation: Performing Lab: Notes/Report: [facility] , Sodium 141 136-145 mmol/L Potassium 3.9 3.5-5.1 mmol/L Chloride 108 98-107 mmol/L Carbon Dioxide 17.9 21.0-32.0 mmol/L Anion Gap 19.0 Glucose 119 74-106 mg/dL Blood Urea Nitrogen 38.0 7.0-18.0 mg/dL Creatinine 1.72 0.55-1.02 mg/dL Estimated GFR ( Abena 36 >=60 mL/min/1.73m 2 Estimated GFR (Non- Miroslava 30 >=60 mL/min/1.73m 2 BUN Creatinine Ratio 22.1 Calcium 9.4 8.5-10.1 mg/dL Bilirubin Total 0.4 0.2-1.0 mg/dL Aspartate Amino Transferase 20 15-37 U/L Alanine Aminotransferase 25 14-59 U/L Alkaline Phosphatase 109 46-116 U/L Total Protein 7.5 6.4-8.2 g/dL Albumin Level 4.2 3.4-5.0 g/dL Globulin 3.3 Albumin Globulin Ratio 1.3 Performing Lab: see note ML - [facility] LB LIPID PROFILE Reviewed date:06/26/2024 08:23:41 PM Interpretation: Performing Lab: Notes/Report: [facility] , Triglycerides 178 <=150 mg/dL Cholesterol 232 <=200 mg/dL HDL Cholesterol 54 40-60 mg/dL <40 mg/dl - HIGH CARDIOVASCULAR RISK > or =60 mg/dl - LOW CARDIOVASCULAR RISK LDL Cholesterol Calculated 143.0 130-159 mg/dl BORDERLINE HIGH 100-129 mg/dl NEAR OR ABOVE OPTIMAL >190 mg/dl VERY HIGH 160-189 mg/dl HIGH <100 mg/dl OPTIMAL VLDL CHOLESTEROL 35.6 Chol HDL Ratio 4.3 4.4 - 7.1 AVERAGE RISK >11.0 HIGH RISK 3.3 - 4.4 LOW RISK 7.1 - 11.0 MODERATE RISK Performing Lab: see note ML - [facility] LB GLYCOHEMOGLOBIN A1C Reviewed date:06/26/2024 08:23:41 PM Interpretation: Performing Lab: Notes/Report: [facility] , Glycohemoglobin A1C 5.1 4.5-6.2 % ADA THERAPEUTIC TARGET < 7.0 ACTION SUGGESTED ADA RECOMMENDED LIMIT 4.0 - 6.0 > 7.0 Estimated Average Glucose 100 Performing Lab: see note ML - [facility] FREE T3 Reviewed date:06/26/2024 08:23:41 PM Interpretation: Performing Lab: Notes/Report: [facility] , Free T3 2.16 2.18-3.98 pg/mL Performing Lab: see note ML - [facility] LB CBC AUTO DIFF Reviewed date:06/26/2024 08:23:41 PM Interpretation: Performing Lab: Notes/Report: [facility] , White Blood Count 8.5 4.0-11.0 10 3/uL Red Blood Count 4.38 4.20-5.40 10 6/uL Hemoglobin 14.2 12.0-16.0 g/dL Hematocrit 44.0 36.0-48.0 % Mean Corpuscular Volume 100.5 81.0-99.0 fL Mean Corpuscular Hemoglobin 32.4 26.7-34.0 pg Mean Corpuscular HGB Conc 32.3 29.9-35.2 g/dL Red Cell Distribution Width 13.4 11.0-15.0 % Platelet Count 250 150-450 10 3/uL Mean Platelet Volume 12.0 9.5-13.5 fL Neutrophils Percent Auto 69.6 43.0-75.0 % Lymphocytes Percent Auto 21.6 20.5-60.0 % Monocytes Percent Auto 5.8 1.7-12.0 % Eosinophils Percent Auto 1.7 0.9-7.0 % Basophils Percent Auto 1.1 0.2-2.0 % Immature Granulocytes Pct Auto 0.2 0.0-0.5 % Neutrophils Absolute Auto 5.9 1.4-6.5 10 3/uL Lymphocytes Absolute Auto 1.8 1.2-3.8 10 3/uL Monocytes Absolute Auto 0.5 0.3-0.8 10 3/uL Eosinophils Absolute Auto 0.1 0.0-0.7 10 3/uL Basophils Absolute Auto 0.1 0.0-0.1 10 3/uL Immature Granulocytes Abs Auto 0.02 0.00-0.03 10 3/uL Performing Lab: see note ML - [facility] LB CT cervical spine wo con Reviewed date:12/03/2023 06:44:13 PM Interpretation: Performing Lab: Notes/Report: Source Facility: [place] [address] CT Scan Report Signed Patient: TRINITY HARPER MR#: [id number] : 1955 Acct:[id number] Age/Sex: 68 / F ADM Date: 12/03/23 Loc: ER Attending Dr: Ordering Physician: Jenny Ordoñez Date of Service: 12/03/23 Procedure(s): CT cervical spine wo con Accession Number(s): [id number] cc: Levi Sanderson M.D. [place] [address] Patient Name: TRINITY HARPER MRN: [id number] date: 1955 Sex: F Assigned Patient Location: ER Current Patient Location: ER Accession/Order Number: [id number] Exam Date: 12/03/2023 13:28 Report Date: 12/03/2023 14:24 At the request of: JENNY ORDOÑEZ Procedure: CT cervical spine wo con EXAM: CT cervical spine wo con HISTORY: fall COMPARISON: None. TECHNIQUE: Dose reduction techniques were achieved by using automated exposure control and/or adjustment of mA and/or kV according to patient size and/or use of iterative reconstruction technique.CT of the cervical spine without contrast. FINDINGS: Moderate degeneration at the C4-C5, C5-C6 and C6-C7 disc spaces. Moderate degeneration at the atlantodental interval. Craniocervical junction is unremarkable. Lung apices are clear. No acute fracture or dislocation. Normal alignment of the cervical spine. Prevertebral soft tissues are normal. CT/CT cervical spine wo con IMPRESSION: 1. No acute fracture. 2. Normal alignment of the cervical spine. 3. Prevertebral soft tissues are normal. Electronically authenticated by: TERRENCE RODRIGUEZ Date: 12/03/2023 14:24 Dictated By: Terrence Rodriguez M.D. Signed By: 12/03/231426 DD/ 23 TD/TT: Watch Parts Inspector: [place] [address] CT Scan Report Signed Patient: TINO HARPER MR#: [id number] : 1955 Acct:[id number] Age/Sex: 68 / F ADM Date: 12/03/23 Loc: ER Attending Dr: Ordering Physician: Jenny Ordoñez Date of Service: 12/03/23 Procedure(s): CT cer vical spine wo con Accession Number(s): [id number] cc: Levi Sanderson M.D. [place] [id number] Patient Name: TRINITY HARPER MRN: [id number] date: 1955 Sex: F Assigned Patient Location: ER Current Patient Loca tion: ER Accession/Order Numb er: [id number] Exam Date: 12/03/2023 13:28 Report Date: 12/03/2023 14:24 At the request of: JENNY ORDOÑEZ Procedure: CT cervic al spine wo con EXAM: CT cervical sp ine wo con HISTORY: fall COMPARISON: None. TECHNIQUE: Dose redu ction techniques were achieved by using automated exposure control and/or adjus tment of mA and/or kV according to patient size and/or use of iterative reconstruction technique.CT of the cervical spine without contrast. FINDINGS: Moderate degeneratio n at the C4-C5, C5-C6 and C6-C7 disc spaces. Moderate degeneratio n at the atlantodental interval. Craniocervical junct ion is unremarkable. Lung apices are clear. No acute fracture or dislocation. Normal alignment of the cervical spine. Prevertebral soft ti ssues are normal. C T/CT cervical spine wo con IMPRESSION: 1. No acute fracture. 2. Normal alignment of the cervical spine. 3. Prevertebral soft tissues are normal. Electronically authenticated by: TERRENCE RODRIGUEZ Date: 12/03/2023 14:24 Dictated By: Yash Rodriguez M.D. Signed By: 12/03/231426 DD/ 23 TD/TT: Watch Parts Inspector: CT head/brain wo con Reviewed date:12/03/2023 02:13:36 PM Interpretation: Performing Lab: Notes/Report: Source Facility: [place] [address] CT Scan Report Signed Patient: TRINITY HARPER MR#: [id number] : 1955 Acct:[id number] Age/Sex: 68 / F ADM Date: 12/03/23 Loc: ER Attending Dr: Ordering Physician: Jenny Ordoñez Date of Service: 12/03/23 Procedure(s): CT head/brain wo con Accession Number(s): [id number] cc: Levi Sanderson M.D. [place] [address] Patient Name: TRINITY HARPER MRN: [id number] date: 1955 Sex: F Assigned Patient Location: ER Current Patient Location: ER Accession/Order Number: [id number] Exam Date: 12/03/2023 13:28 Report Date: 12/03/2023 13:52 At the request of: JENNY ORDOÑEZ Procedure: CT head/brain wo con EXAM: CT head/brain wo con HISTORY: fall with head injury COMPARISON: 06/25/2023 TECHNIQUE: Multiple thin computed tomograms of the head were obtained, with sagittal and coronal reconstructions. Radiation reduction technique and algorithms were utilized during the study. FINDINGS: The ventricles are not enlarged, the lateral ventricles are symmetric and the third ventricles in the midline. Sylvian fissures and cortical sulci are unremarkable. There is no evidence of an intracranial hemorrhage, mass lesion or apparent acute infarct. The cerebellum and visualized brainstem are intact. The visualized paranasal sinuses are clear. The middle ears are aerated. The mastoid sinuses are clear. There is no apparent acute skull fracture. CT/CT head/brain wo con IMPRESSION: There is no evidence of an intracranial hemorrhage, mass lesion or apparent acute infarct. The sinuses are clear. There is no apparent acute skull fracture. The overall appearance has not changed significantly. Electronically authenticated by: MELLY SEO Date: 12/03/2023 13:52 Dictated By: Melly Seo M.D. Signed By: 12/03/23 1354 DD/ 1352 TD/TT: Watch Parts Inspector: [place] [address] CT Scan Report Signed Patient: TINO HARPER MR#: [id number] : 1955 Acct:[id number] Age/Sex: 68 / F ADM Date: 12/03/23 Loc: ER Attending Dr: Ordering Physician: Jenny Ordoñez Date of Service: 12/03/23 Procedure(s): CT head/brain wo con Accession Number(s): [id number] cc: Levi Sanderson M.D. [address] [address] Patient Name: TRINITY HARPER MRN: [id number] date: 1955 Sex: F Assigned Patient Location: ER Current Patient Loca tion: ER Accession/Order Numb er: [id number] Exam Date: 12/03/2023 13:28 Report Date: 12/03/2023 13:52 At the request of: JENNY ORDOÑEZ Procedure: CT head/b rain wo con EXAM: CT head/brain wo con HISTORY: fall with h ead injury COMPARISON: 06/25/2023 TECHNIQUE: Multiple thin computed tomograms of the head were obtained, with sagittal and coronal reconstructions. Radiation reduction technique and algorithms were util ized during the study. FINDINGS: The ventri cles are not enlarged, the lateral ventricles are symmetric and the third ventri cles in the midline. Sylvian fissures and cortical sulci are unremarkable. Th ere is no evidence of an intracranial hemorrhage, mass lesion or apparent a cute infarct. The cerebellum and visualized brainstem are intact. The visualized paranasal sinuses are clear. T he middle ears are aerated. The mastoid sinuses are clear. There is no apparent acute skull fracture. C T/CT head/brain wo con IMPRESSION: There is no evidence of an intracranial hemorrhage, mass lesion or apparent acute infarct. The sinuses are clear. There is no apparent acute skull fracture. The overal l appearance has not changed significantly. Electronically authenticated by: MELLY SEO Date: 12/03/2023 13:52 Dictated By: Srini Seo M.D. Signed By: 12/03/23 1354 DD/ 1352 TD/TT: Watch Parts Inspector: CT FACIAL BONES WO CON Reviewed date:12/03/2023 06:44:13 PM Interpretation: Performing Lab: Notes/Report: Source Facility: [place] [address] CT Scan Report Signed Patient: TRINITY HARPER MR#: [id number] : 1955 Acct:[id number] Age/Sex: 68 / F ADM Date: 12/03/23 Loc: ER Attending Dr: Ordering Physician: Jenny Ordoñez Date of Service: 12/03/23 Procedure(s): CT facial bones wo con Accession Number(s): [id number] cc: Levi Sanderson M.D. [place] [address] Patient Name: TRINITY HARPER MRN: [id number] date: 1955 Sex: F Assigned Patient Location: ER Current Patient Location: ER Accession/Order Number: [id number] Exam Date: 12/03/2023 13:28 Report Date: 12/03/2023 14:22 At the request of: JENNY ORDOÑEZ Procedure: CT facial bones wo con EXAM: CT facial bones wo con HISTORY: Fall COMPARISON: None. TECHNIQUE: Dose reduction techniques were achieved by using automated exposure control and/or adjustment of mA and/or kV according to patient size and/or use of iterative reconstruction technique.CT of the facial bones. FINDINGS: No acute fracture of the facial bones. No acute abnormality of the orbits. Moderate degeneration of the atlantodental interval. Prevertebral soft tissues are normal. Bilateral cataract surgery. Orbits are otherwise normal. CT/CT facial bones wo con IMPRESSION: 1. No acute fractures of the facial bones. Electronically authenticated by: TERRENCE RODRIGUEZ Date: 12/03/2023 14:22 Dictated By: Terrence Rodriguez M.D. Signed By: 12/03/231423 DD/ 21 TD/TT: Watch Parts Inspector: [place] [address] CT Scan Report Signed Patient: TINO HARPER MR#: [id number] : 1955 Acct:[id number] Age/Sex: 68 / F ADM Date: 12/03/23 Loc: ER Attending Dr: Ordering Physician: Jenny Ordoñez Date of Service: 12/03/23 Procedure(s): CT fac ial bones wo con Accession Number(s): [id number] cc: Levi Sanderson M.D. [place] [id number] Patient Name: TRINITY HARPER MRN: [id number] date: 1955 Sex: F Assigned Patient Location: ER Current Patient Loca tion: ER Accession/Order Numb er: [id number] Exam Date: 12/03/2023 13:28 Report Date: 12/03/2023 14:22 At the request of: JENNY ORDOÑEZ Procedure: CT facial bones wo con EXAM: CT facial bone s wo con HISTORY: Fall COMPARISON: None. TECHNIQUE: Dose redu ction techniques were achieved by using automated exposure control and/or adjus tment of mA and/or kV according to patient size and/or use of iterative reconstruction technique.CT of the facial bones. FINDINGS: No acute fracture of the facial bones. No acute abnormality of the orbits. Moderate degeneratio n of the atlantodental interval. Prevertebral soft ti ssues are normal. Bilateral cataract surgery. Orbits are otherwise normal. C T/CT facial bones wo con IMPRESSION: 1. No acute fracture s of the facial bones. Electronically authenticated by: TERRENCE RODRIGUEZ Date: 12/03/2023 14:22 Dictated By: Terrnece Rodriguez M.D. Signed By: 12/03/231423 DD/ 21 TD/TT: Watch Parts Inspector: Reason For Referral No Information Medications Medication SIG (Take, Route, Frequency, Duration) Notes Start Date End Date Status Gabapentin 600 MG TAKE 1 TABLET BY MOUTH IN THE MORNING AND 2 TABLETS BY MOUTH IN THE EVENING for 90 days Active Venlafaxine HCl ER 75 MG TAKE 1 CAPSULE BY MOUTH ONCE DAILY WITH THE 150 MG CAPSULE for 90 Active HYDROcodone-Acetaminophen 5-325 MG 1 tablet Orally qid - prn for 7 days M54.16 06/11/2023 Active Methocarbamol 500 MG Oral for 4 Days Not-Taking Valium 2 MG Take 1 Orally tid prn for 30 days F41.9 09/05/2024 Active Venlafaxine HCl ER 150 MG TAKE 1 CAPSULE BY MOUTH ONCE DAILY for 90 Active Methocarbamol 500 MG Oral for 4 Days Active Metoclopramide HCl 10 MG TAKE 1 TABLET B Y MOUTH BEFORE MEALS AND AT BEDTIME 4 TIMES DAILY for 90 days Active Hyoscyamine Sulfate 0.125 MG 2 tabs SL SL every 4 hrs PRN abd pain 12/07/2023 Active Isosorbide Mononitrate ER 60 MG TAKE 1 TABLET BY MOUTH ONCE DAILY for 90 Active Metoprolol Succinate ER 100 MG TAKE 1 TABLET BY MOUTH TWICE DAILY for 90 Active Ondansetron 4 MG 1 tablet on the tongue and allow to dissolve = for nausea Orally Q 6 hours PRN for 3 days 09/07/2023 Active Methocarbamol 500 MG 1 tables Orally tid for 14 days 09/11/2024 Active Potassium Chloride Katerin ER 10 MEQ TAKE 1 TABLET BY MOUTH TWICE DAILY for 90 Active predniSONE 10 MG 1 tablet Orally Once a day for 30 days 07/04/2023 Active traMADol HCl 50 MG 1 tablet as needed Orally tid for 7 days 09/11/2024 Active Pantoprazole Sodium 40 MG TAKE 1 TABLET BY MOUTH DAILY for 90 Active Restoril 30 MG 1 capsule at bedtime as needed Orally dx G47.00 Once a day for 30 days 09/02/2024 Active Albuterol Sulfate HFA 108 (90 Base) MCG/ACT USE 2 INHALATIONS BY MOUTH EVERY 4 HOURS NEEDED for 90 Active Sucralfate 1 GM TAKE 1 TABLET BY MOUTH 4 TIMES DAILY ON AN EMPTY STOMACH for 90 Active Promethazine HCl 25 MG 1 tablet as neede d Orally every 4 hrs-PRN for 90 days PRN 07/12/2022 Active QUEtiapine Fumarate 50 MG TAKE 1 TABLET BY MOUTH EVERYDAY AT BEDTIME for 30 Active Cetirizine HCl 10 MG 1 tablet Orally Onc e a day for 90 days Active valACYclovir HCl 1 GM 1 tablet Orally ti d for 10 01/19/2023 Active Flonase Allergy Relief 50 MCG/ACT 1 spray in each nostril Nasally Twice a day for 30 days 07/12/2022 Active Breo Ellipta 100-25 MCG/ACT 1 puff Inhalation Once a day for 90 days 07/12/2022 Active tiZANidine HCl 4 MG TAKE 1 IN AM, 1 IN AFTERNOON, AND 2 AT BEDTIME for 90 Active Calcium + D 600-200 MG-UNIT 1 tablet Orally Twice a day for 30 days 05/07/2023 Active traMADol HCl 50 MG Oral for 5 Days Active Fludrocortisone Acetate 0.1 MG TAKE 1 TABLET BY MOUTH TWICE DAILY for 90 Active Immunizations Vaccine Route Administration Date Status Comme nts Flu, Fluad (54138) 65 yrs + High Dose Seasonal (4885-6350) IM Intramuscular 02/06/2023 Administered Pneumococcal (Pneumovax 23) Unknown 01/31/2015 Administered Pneumococcal (Prevnar 13) IM Intramuscular 02/06/2023 Admi nistered Social History Tobacco Use: Social History Observation Description Date Details (start date - stop date) Former Smoker NA - NA Alcohol Screen (Audit-C) Question Answer Notes Did you have a drink containing alcohol in the p ast year? No Points 0 Interpretation Negative Tobacco Control (Standard) Question Answer Notes Tobacco use: Former smoker AUDIT-C (Standard) Question Answer Notes Did you have a drink containing alcohol in the p ast year? 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) Infection and inflammatory reaction due to other internal joint prosthesis, initial encounter (T84.59XA) Active confirmed Problem Chest pain (96660272) Chest pain (R07.9) Active confirmed Problem Hyperlipidemia (12973387) Hyperlipidemia (E78.5) Active confirmed Problem Hypertension (86216321) Hypertension (I10) Active confirmed Problem Cigarette smoker (12493264) Cigarette smoker (F17.210) Active confirmed Problem Asthma (695201867) Asthma (J45.909) Active conf irmed Problem COPD - Chronic obstructive pulmonary disease (00797044) COPD (chronic obstructive pulmonary disease) (J44.9) Active confirmed Problem Gastroesophageal reflux disease (698344788) GERD (gastroesophageal reflux disease) (K21.9) Active confirmed Problem Anxiety (62279144) Anxiety (F41.9) Active confi rmed Problem Dyspnea (101513898) Dyspnea (R06.00) Active con firmed Problem Insomnia (556369779) Insomnia (G47.00) Active confirmed Problem Hiatal hernia (22110774) Hiatal hernia (K44.9) Active confirmed Problem Knee pain (6818169478) Knee pain (M25.569) Active confirmed Problem Acute combined systolic and diastolic heart failure (956962432909407) Acute combined systolic (congestive) and diastolic (congestive) heart failure (I50.41) Active confirmed Problem Back pain (973669226) Back pain (M54.9) Active confirmed Problem Lumbar radiculopathy (778483777) Lumbar radiculopathy (M54.16) Active confirmed Problem Arthralgia (81641757) Arthralgia (M25.50) Active confirmed Problem Pain of right knee region (finding) (324935472437511) Knee pain, right (M25.561) Active confirmed Problem Serous otitis media (01196516) Serous otitis media (H65.90) Active confirmed Problem Gastritis (9304042) Gastritis (K29.70) Active c onfirmed Problem Well adult (193187770) Well adult (Z00.00) Active confirmed Problem Cellulitis (217993556) Cellulitis (L03.90) Active confirmed Problem Rib pain (367243627) Rib pain (R07.81) Active confirmed Problem Recurrent falls (564185651) Falls frequently (R29.6) Active confirmed Problem Osteoarthritis (644325823) Osteoarthritis, unspecified osteoarthritis type, unspecified site (M19.90) Active confirmed Problem Rib fracture (75739602) Rib fracture (S22.39XA) Active confirmed Problem Pyelonephritis (53517094) Pyelonephritis (N12) Active confirmed Problem Gastroenteritis (45657832) Gastroenteritis (K52.9) Active confirmed Problem Overweight (748488992) Over weight (E66.3) Active confirmed Problem Leukocytosis (344542765) Leukocytosis (D72.829) Active confirmed Problem Right upper quadrant pain (778480606) Abdominal pain, right upper quadrant (R10.11) Active confirmed Problem Internal derangement of right knee (93697708905401647) Internal derangement of right knee (M23.91) Active confirmed Problem Iron deficiency anemia (31068759) Fe deficiency anemia (D50.9) Active confirmed Problem Weak (679112432) Weak (R53.1) Active confirmed Problem Seronegative rheumatoid arthritis (471271095) Seronegative rheumatoid arthritis (M06.00) Active confirmed Problem Viral gastroenteritis (578171572) Viral gastroenteritis (A08.4) Active confirmed Problem Facial contusion (S00.83XA) Active confirmed Problem Chronic obstructive pulmonary disease (23736852) Advanced COPD (J44.9) Active confirmed Problem Altered mental status (057320595) Altered mental state (R41.82) Active confirmed Problem Contusion of shoulder region (68296738) Shoulder contusion (S40.019A) Active confirmed Problem Preoperative care (078066369) Preop examination (Z01.818) Active confirmed Problem At risk for falls (247967744) At risk for falls (Z91.81) Active confirmed Problem Arthralgia of the ankle and/or foot (595302798) Ankle pain, unspecified chronicity, unspecified laterality (M25.579) Active confirmed Problem Essential hypertension (39577746) BP (high blood pressure) (I10) Active confirmed Problem Lobar pneumonia (374575406) Lobar pneumonia (J18.1) Active confirmed Problem Bruising (497716917) Bruising (T14.8XXA) Active confirmed Problem Adrenal mass (463434564) Adrenal mass (E27.8) Active confirmed Problem COVID-19 (789928611) COVID-19 (U07.1) Active confirmed Vital Signs Blood pressure diastolic 72 mm Hg 09/11/2024 Height 68 in 09/11/2024 Blood pressure systolic 140 mm Hg 09/11/2024 Weight 201.6 lbs 09/11/2024 BMI 30.65 kg/m2 09/11/2024 Procedures Procedure Date Ordered Date Performed Result Body Sit e Holter Monitor - 3 days up to 14 days 09/11/2024 N/A Encounters Encounter Location Date Provider Diagnosis [facility] [address] [place] [address] 09/05/2024 Deni Hoy Hyperlipidemia E78.5 [facility] [address] [place] [address] 09/08/2024 Deni Hoy [facility] [address] [place] [place] [address] 07/04/2024 Deni Hoy Hyperlipidemia E78.5 [facility] [address] [place] [address] 07/15/2024 Deni Hoy [facility] [address] [place] [address] 08/01/2024 Deni Hoy Hyperlipidemia E78.5 [facility] [address] [place] [address] 08/04/2024 Deni Hoy Hyperlipidemia E78.5 [facility] [address] [place] [address] 09/02/2024 Deni Hoy Hyperlipidemia E78.5 [facility] [address] [place] [address] 09/04/2024 Deni Hoy Rib pain R07.81 [facility] [address] [place] [address] 03/07/2024 Deni Hoy Gastroenteritis K52. 9 [facility] [address] [place] [address] 04/07/2024 Deni Hoy Gastroenteritis K52. 9 [facility] [address] [place] [address] 05/06/2024 Deni Hoy Gastroenteritis K52. 9 [facility] [address] [place] [address] 05/26/2024 Deni Hoy [facility] [address] [place] [address] 05/30/2024 Deni Hoy Chest pain R07.9 [facility] [address] [facility] [place] [address] 06/26/2024 Deni Hoy Abnormal renal funct ion test R94.4 [facility] [address] [facility] [place] [address] 12/04/2023 Deni Hoy Anxiety F41.9 [facility] [address] [facility] [place] [address] 12/10/2023 Deni Hoy [facility] [address] [facility] [place] [address] 12/11/2023 Deni Hoy [facility] [address] [place] [address] 01/09/2024 Deni Hoy [facility] [address] [facility] [place] [address] 01/09/2024 Deni Hoy Gastroenteritis K52. 9 [facility] [address] [place] [address] 02/07/2024 Deni Hoy Gastroenteritis K52. 9 [facility] [address] [facility] [place] [address] 10/01/2023 Deni Hoy [facility] [address] [facility] [place] [address] 10/08/2023 LEVI HOY Chest pain R07.9 [facility] [address] [place] [address] 10/10/2023 Deni Hoy [facility] [address] [place] [address] 11/02/2023 Deni Sanderson Anxiety F41.9 [facility] [address] [place] [address] 11/12/2023 Deni Sanderson [facility] [address] [place] [address] 09/11/2024 Deni Sanderson Hypertension I10 ; C OPD (chronic obstructive pulmonary disease) J44.9 ; Back pain M54.9 ; Syncope R55 and H/O fall Z91.81 [place] [address] [place] [address] 12/07/2023 Deni Sanderson Gastroenteritis K52. 9 and Facial contusion S00.83XA [place] [address] [place] [address] 06/06/2024 Deni Sanderson Hyperlipidemia E78.5 ; Hypertension I10 ; Asthma J45.909 ; COPD (chronic obstructive pulmonary disease) J44.9 and GERD (gastroesophageal reflux disease) K21.9 Assessments Encounter Date Diagnosis (ICD Code) Assessment Notes Treatment Notes Treatment Clinical Notes Section Notes 12/07/2023 Gastroenteritis (ICD-10 - K52.9) 12/07/2023 Facial contusion (ICD-10 - S00.83XA) 06/06/2024 Hyperlipidemia (ICD-10 - E78.5) 06/06/2024 Hypertension (ICD-10 - I10) 09/11/2024 Hypertension (ICD-10 - I10) restarted fludrocortisone 09/11/2024 COPD (chronic obstructive pulmonary disease) (ICD-10 - J44.9) 10/08/2023 Chest pain (ICD-10 - R07.9) 11/02/2023 Anxiety (ICD-10 - F41.9) 12/04/2023 Anxiety (ICD-10 - F41.9) 01/09/2024 Gastroenteritis (ICD-10 - K52.9) 02/07/2024 Gastroenteritis (ICD-10 - K52.9) 03/07/2024 Gastroenteritis (ICD-10 - K52.9) 04/07/2024 Gastroenteritis (ICD-10 - K52.9) 05/06/2024 Gastroenteritis (ICD-10 - K52.9) 05/30/2024 Chest pain (ICD-10 - R07.9) 06/26/2024 Abnormal renal function test (ICD-10 - R94.4) 07/04/2024 Hyperlipidemia (ICD-10 - E78.5) 08/01/2024 Hyperlipidemia (ICD-10 - E78.5) 08/04/2024 Hyperlipidemia (ICD-10 - E78.5) 09/02/2024 Hyperlipidemia (ICD-10 - E78.5) 09/04/2024 Rib pain (ICD-10 - R07.81) 09/05/2024 Hyperlipidemia (ICD-10 - E78.5) 09/11/2024 Back pain (ICD-10 - M54.9) 06/06/2024 Asthma (ICD-10 - J45.909) 06/06/2024 COPD (chronic obstructive pulmonary disease) (ICD-10 - J44.9) 09/11/2024 Syncope (ICD-10 - R55) 09/11/2024 H/O fall (ICD-10 - Z91.81) 06/06/2024 GERD (gastroesophageal reflux disease) (ICD-10 - K21.9) Plan Of Treatment Pending Test Test Name Order Date HEMOGLOBIN A1C (GLYCO) 06/06/2024 IRON, TOTAL 06/06/2024 LIPID PANEL (CHOL/TRIG/HDL/LDL) 06/07/19 25 CBC WITH DIFF 06/06/2024 VITAMIN D, 25 LEVEL (TOTAL) 06/06/2024 XR Chest PA and Lateral (Routine CXR) * 10/09/2022 XR Chest PA and Lateral (Routine CXR) * 09/25/2022 CT Knee LT w/contrast (Optional 3D Rende ring) 07/31/2022 XR Ribs Unilateral LT 09/25/2022 XR Shoulder LT * 09/25/2022 BMP - Basic Metabolic Panel 06/26/2024 CULTURE BLOOD 02/06/2023 SED RATE WESTERGREN 02/06/2023 XR RIBS LT PA CH 04/26/2023 XR RIBS LT PA CH 05/07/2023 XR RIBS LT PA CH 10/09/2022 XR RIBS LT PA CH 06/18/2023 THYROID PANEL (T4/TSH/FREE T3) 5 Holter Monitor - 3 days up to 14 days MM diagnostic mammo BI 06/06/2024 CT MAXILLOFACIAL WO CONTRAST 12/07/2023 CMP (COMP MET SIMMONS) w/eGFR CKD-EPI 2024 Insurance Providers Payer Name Payer Address Payer Phone Subscriber Number Group Number Insured Name Patient Relationship to Insured Coverage Start Date Coverage End Date MED[employer]RO[employer] [address] [address] [place], [place] [id number] Trinity Harper Self - patient is the insured 6 [facility] [address] [address] [place], [place] [id number] Trinity Harper Self - patient is the insured 4 Medications Administered Medication Instructions Date of Administration Dosage Notes Ceftriaxone 1 gram 02/06/2023 1 g 1 gm Ketorolac Tromethamine 07/02/2023 60 mg Orphenadrine Citrate 07/02/2023 60 mg Promethazine, 25 mg 09/13/2022 25 mg 25 Medical (General) History Medical History History ICD Code Anxiety F41.9 Seronegative rheumatoid arthritis M06.00 At risk for falls Z91.81 Preop examination Z01.818 Over weight E66.3 Knee pain, right M25.561 Falls frequently R29.6 Pyelonephritis N12 Insomnia G47.00 Atelectasis J98.11 Abdominal pain, right upper quadrant R10 .11 Internal derangement of right knee M23.9 1 COVID-19 U07.1 Infection and inflammatory r eaction due to other internal joint prosthesis, initial encounter T84.59XA Acute combined systolic (con gestive) and diastolic (congestive) heart failure I50.41 Viral gastroenteritis A08.4 Lobar pneumonia J18.1 Other pulmonary embolism with acute cor pulmonale I26.09 Gastritis K29.70 Hiatal hernia K44.9 GERD (gastroesophageal reflux disease) K 21.9 Osteoarthritis, unspecified osteoarthrit is type, unspecified site M19.90 Well adult Z00.00 Chest pain R07.9 Ankle pain, unspecified chronicity, unsp ecified laterality M25.579 Bruising T14.8XXA Dyspnea R06.00 Lumbar radiculopathy M54.16 Hyperlipidemia E78.5 Arthralgia M25.50 Acute angle-closure glaucoma, unspecifie d eye H40.219 Adrenal mass E27.8 COPD (chronic obstructive pulmonary dise ase) J44.9 Hypertension I10 Back pain M54.9 Asthma J45.909 Cigarette smoker F17.210 Surgical History Surgery Date(Month/Year) Appendectomy Tonsillectomy Hysterectomy Rt knee replacement left knee Replacement and revision 04/16 Hospitalization History Reason Date(Month/Year) Pneumonia covid 07/2020
--- OUTSIDE RECORDS SUMMARY | 2024-09-13 15:24 | XMS_ITS | CCD ---
Author Organization [facility] Care Team Providers Care Service Department Manager Name Role Phone CALOS SMITH JR. Referring Unavailable MARSHA HATCH Attending Unavailable Levi Shine MD Primary Care Provider [phone] KARAN SULLIVAN Attending Unavailable LEVI SHINE Primary Care Unavailable LEVI SHINE Referring Unavailable KARAN SULLIVAN Admitting Unavailable KARAN SULLIVAN Attending Unavailable LEVI SHINE Primary Care Unavailable LEVI SHINE Referring Unavailable KARAN SULLIVAN Admitting Unavailable Levi Shine MD Primary Care Provider Levi Shine MD Primary Care Provider RL ., DR SIMS Attending Unavailable HOY [...] Primary Care Unavailable HOY ., DR SIMS Admdirk Unavailable SHAILESH, DR CHONG Sloan Consulting Unavailable HOY ., DR SIMS Consulting Unavailable GUILLE RAY Consulting Unavailable HOY ., DR SIMS Attending Unavailable HOY ., DR SIMS Primary Care Unavailable HOY ., DR SIMS Consulting Unavailable HOY ., DR SIMS Admitting Unavailable GRECHNY ., VALARIE SORIANO Consulting UnavailABDIAS Bello Consulting Unavailable NAT ., GRADY Consulting Unavailable MELLY SEO Consulting Unavailable SALOME JOLLY Consulting Unavailable SISTER, INDIO Consulting Unavailable HOY ., DR SIMS Primary Care Unavailable HOY ., DR SIMS Consulting Unavailable HOY ., DR SIMS Attending Unavailable HOY ., DR SIMS Admitting Unavailable ZIEBER, DR GARO Sloan Consulting Unavailable COLÓN, LIDIA Consulting Unavailable DELROY, SALVADOR Consulting Unavailable PAEZ, JUANITO Consulting Unavailable PRESLEY ., LICHA Consulting Unavailable DIAB ., ARIANNA Consulting Unavailable KATKO JACKY D Consulting Unavailable JACKY HOWELL D Attending Unavailable HOY ., DR SIMS Primary Care Unavailable JACKY HOWELL Admitting Unavailable HOY ., DR SIMS Primary Care Unavailable MISC, DR OSCAR Admitting Unavailable MISC, DR OSCAR Attending Unavailable FAWWAD, ANGELO H Admitting Unavailable FAWWAMike, ANGELO H Attending Unavailable HOY ., DR SIMS Primary Care Unavailable FAWWAD, ANGELO H Attending Unavailable HOY ., DR SIMS Primary Care Unavailable FAWWAD, ANGELO H Admitting Unavailable HOY ., DR [...] Unavailable HOY, LEVI Primary Care Unavailable MIL GARZA~[id number], [place] SEA GARZA~[phone] MIL Referring Unavailable HOY, LEVI Primary Care Unavailable EMMEL, BRITTANY Referring Unavailable HOY, LEVI Primary Care Unavailable VENKATAREDWIGEN Referring Unavailable EMMEL, BRITTANY Attending Unavailable HOY, LEVI Primary Care Unavailable EMMEL, BRITTANY Attending Unavailable HOY, LEVI Primary Care Unavailable EMMEL, BRITTANY Referring Unavailable BRITTANY WOOD Attending Unavailable HOY, LEVI Primary Care Unavailable EMMEL, BRITTANY Referring Unavailable EMMEL BRITTANY Attending Unavailable HOY, LEVI Primary Care Unavailable EMMEL, BRITTANY Referring Unavailable HOY, LEVI Primary Care Unavailable AISHA CAST Referring Unavailable HOY, LEVI Primary Care Unavailable LUIS, CALOS Admitting Unavailable LUIS CALOS Attending Unavailable [facility] Unavailable Allergies Allergy Classification Reported Allergen(s) Allergy Type Date of Onset Reaction(s) Facility (5 sources) ceFAZolin; Translations: [CEFAZOLIN] Drug Allergy 1 Anaphylaxis [facility] (5 sources) Morphine; Translations: [MORPHINE] Drug Allergy 1 Hives, Itching [facility] (8 sources) NSAIDs; Translations: [NSAIDS (NON-STEROIDAL ANTI-INFLAMMATOR Y DRUG)] Drug Allergy 3 Anaphylaxis [facility] (5 sources) Vancomycin; Translations: [VANCOMYCIN] Drug Allergy 1 Other [facility] (1 source) Aspirin Drug Allergy 0 [facility] (3 sources) ceFAZolin Drug Allergy 5 [facility] (1 source) Morphine Drug Allergy 0 [facility] (2 sources) Morphine Drug Allergy 3 [facility] (2 sources) Vancomycin Drug Allergy [facility] Medications Current Medications Medication Drug Class(es) [...] 20 mg/ml oral solution (2 sources) Uncompetitive R-aqvgea-X-aspartate Receptor Antagonist, Sigma-1 Agonist End: 12-29-2021 take [...] oral, 2 times daily, First dose on 01/03/22 at 2100 Start: 01-08-2021 take 2.5 mg [...] mg docusate sodium 50 mg / sennosides, prison 8.6 mg oral tablet (2 sources) Start: [...] at 0900 take 2 tablets by mo [facility] at bedtime gabapentin (NEURONTIN) 600 mg tablet Take 2 tablets (1,200 mg total) by mouth at bedtime. 0 [facility] gab[facility] (NEURONTIN) 600 mg tablet [...] oral, 2 times daily, First dose on e 01/03/22 at 2100 Regarding Beta-Blockers - hold if [...] Oxygen Therapy , Adult polyethylene glycol 3350 [id number] mg powder for oral solution (6 sources) [...] times daily, First dose on Sun01/04/22 at 0900 Tablet may be swallowed whole (do not crush/chew/suck on) OR broken in half and each half swallowed separately OR dissolved (whole tablet) in ~4 ounces of water (allow ~2 minutes to dissolve, stir well and administer immediately). take 1 capsule by mo [facility] twice daily potassium chloride (MICRO-K) 10 [...] let 25 mg take 1 tablet by arin every six hours as needed promethazine (PHENERGAN) 25 mg tablet Take 1 tablet (25 mg total) by mouth every 6 (six) hours if needed for nausea or vomiting. 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 CURRENT DRUG THERAPY] Onset: 08-25-2022 Episodic Other aftercare (1 source) long term (current) use of anticoagulants; Translations: [INTERMEDIATE TEACHER CURRNT USE ANTICOAGULANTS] Onset: 08-25-2022 Episodic Other [...] 02-19-2023 C-Reactive Protein 1.0 mg/dL Normal 0.0-1.0 [facility] Comment on above: Performed By: #### 1 988-5 #### [facility] [address] [place] [address] ESR (Bld) [Velocity]on 02-19 Basophils (Bld) [#/Vol] 0.09 10*3/uL Normal 0.00-0.20 [facility] Comment on above: Performed By: #### 5 75-1 #### [facility] ([facility] [address] [place] [address] Basophils/100 WBC (Bld) 1.1 % Normal 0.0-2.0 [facility] Comment on above: Performed By: #### 5 75-1 #### [facility] ([facility] [address] [place] [address] Eosinophils (Bld) [#/Vol] 0.17 10*3/uL Normal 0.00-0.70 [facility] Comment on above: Performed By: #### 5 75-1 #### [facility] [place] [facility] [address] [place] [address] Eosinophils/100 WBC (Bld) 2.0 % Normal 0.0-7.0 [facility] Comment on above: Performed By: #### 5 75-1 #### [facility] [place] [facility] [address] [place] [address] Erythrocyte distribution width (RBC) [Ratio] 13.5 % Normal 11.0-14.8 [facility] Comment on above: Performed By: #### 5 75-1 #### [facility] [place] [facility] [address] [place] [address] Hematocrit (Bld) [Volume fraction] 39.9 % Normal 34.3-47.9 [facility] Comment on above: Performed By: #### 5 75-1 #### [facility] [place] [facility] [address] [place] [address] Hemoglobin (Bld) [Mass/Vol] 12.7 g/dL Normal 12.0-16.0 [facility] Comment on above: Performed By: #### 5 75-1 #### [facility] [place] [facility] [address] [place] [address] Immature granulocytes (Bld) [#/Vol] 0.02 10*3/uL Normal 0.00-0.10 [facility] Comment on above: Performed By: #### 5 75-1 #### [facility] [place] [facility] [address] [place] [address] Immature granulocytes/100 WBC (Bld) 0.2 % Normal 0.0-1.2 [facility] Comment on above: Performed By: #### 5 75-1 #### [facility] [place] [facility] [address] [place] [address] Lymphocytes (Bld) [#/Vol] 2.55 10*3/uL Normal 1.00-4.80 [facility] Comment on above: Performed By: #### 5 75-1 #### [facility] [place] [facility] [address] [place] [address] Lymphocytes/100 WBC (Bld) 30.6 % Normal 17.9-49.6 [facility] Comment on above: Performed By: #### 5 75-1 #### [facility] [place] [facility] [address] [place] [address] MCH 31.4 pcg Normal 27.0-34.0 [facility] Comment on above: Performed By: #### 5 75-1 #### [facility] [address] [place] [address] MCHC (RBC) [Mass/Vol] 31.8 g/dL Normal 30.8-35.3 [facility] Comment on above: Performed By: #### 5 75-1 #### [facility] [place] [facility] [address] [place] [address] MCV (RBC) [Entitic vol] 98.5 fL High 80.0-97.0 [facility] Comment on above: Performed By: #### 5 75-1 #### [facility] [place] [facility] [address] [place] [address] Monocytes (Bld) [#/Vol] 0.57 10*3/uL Normal 0.00-0.90 [facility] Comment on above: Performed By: #### 5 75-1 #### [facility] [place] [facility] [address] [place] [address] Monocytes/100 WBC (Bld) 6.9 % Normal 0.0-12.0 [facility] Comment on above: Performed By: #### 5 75-1 #### [facility] [place] [facility] [place] [address] Neutrophils Absolute 4.92 K/mcL Normal 1.80-7.70 Spike benavides [facility] Comment on above: Performed By: #### 5 75-1 #### [facility] [place] [facility] [address] [place] [address] Neutrophils/100 WBC (Bld) 59.2 % Normal 38.1-75.5 [facility] Comment on above: Performed By: #### 5 75-1 #### [facility] [place] [facility] [address] [place] [address] Platelet mean volume (Bld) [Entitic vol] 11.5 fL Normal 6.2-12.1 [facility] Comment on above: Performed By: #### 5 75-1 #### [facility] [place] [facility] [address] [place] [address] Platelets (Bld) [#/Vol] 262 10*3/uL Normal 142-424 [facility] Comment on above: Performed By: #### 5 75-1 #### [facility] [place] [facility] [address] [place] [address] RBC (Bld) [#/Vol] 4.05 10*6/uL Normal 3.74-5.34 [facility] Comment on above: Performed By: #### 5 75-1 #### [facility] [place] [facility] [address] [place] [address] WBC (Bld) [#/Vol] 8.3 10*3/uL Normal 4.6-10.2 [facility] Comment on above: Performed By: #### 5 75-1 #### [facility] [place] [facility] [address] [place] [address] CBC AUTO DIFFon 08-30-2022 BASO # 0.1 103/ul Normal 0.0-0.1 [facility] Comment on above: Performed By: #### C BC #### [facility] [address] [place], [place] [address] Dr. Jeffrey Thomas Basophils/100 WBC (Bld) 0.9 % Normal 0.2-2.0 [facility] Comment on above: Performed By: #### C BC #### [facility] [address] [place] [address] Dr. Jeffrey Thomas EO # 0.2 103/ul Normal 0.0-0.7 [facility] Comment on above: Performed By: #### C BC #### [facility] [address] [place] [address] Dr. Jeffrey Thomas Eosinophils/100 WBC (Bld) 3.9 % Normal 0.9-7.0 [facility] Comment on above: Performed By: #### C BC #### [facility] [address] [place] [address] Dr. Jeffrey Thomas Erythrocyte distribution width (RBC) [Ratio] 14.6 % Normal 11.0-15.0 [facility] Comment on above: Performed By: #### C BC #### [facility] [address] [place] [address] Dr. Jeffrey Thomas Hematocrit (Bld) [Volume fraction] 32.7 % Critically low 36.0-48.0 [facility] Comment on above: Performed By: #### C BC #### [facility] [address] [place] [address] Dr. Jeffrey Thomas Hemoglobin (Bld) [Mass/Vol] 10.3 g/dL Critically low 12.0-16.0 [facility] Comment on above: Performed By: #### C BC #### [facility] [address] [place] [address] Dr. Jeffrey Thomas IG # 0.01 10e3/ul Normal 0.00-0.03 [facility] Comment on above: Performed By: #### C BC #### [facility] [address] [place] [address] Dr. Jeffrey Thomas IG % 0.2 % Normal 0.0-0.5 [facility] Comment on above: Performed By: #### C BC #### [facility] [address] [place] [address] Dr. Jeffrey Thomas LYMPH # 1.7 103/ul Normal 1.2-3.8 [facility] Comment on above: Performed By: #### C BC #### [facility] [address] [place] [address] Dr. Jeffrey Thomas Lymphocytes/100 WBC (Bld) 30.8 % Normal 20.5-60.0 [facility] Comment on above: Performed By: #### C BC #### [facility] [address] [place] [address] Dr. Jeffrey Thomas MANUAL DIFF REQ NO Normal [facility] Comment on above: Performed By: #### C BC #### [facility] [address] [place] [address] Dr. Jeffrey Thomas MCH (RBC) [Entitic mass] 30.2 pg Normal 26.7-34.0 [facility] Comment on above: Performed By: #### C BC #### [facility] [address] [place] [address] Dr. Jeffrey Thomas MCHC (RBC) [Mass/Vol] 31.5 g/dL Normal 29.9-35.2 [facility] Comment on above: Performed By: #### C BC #### [facility] [address] [place] [address] Dr. Jeffrey Thomas MCV (RBC) [Entitic vol] 95.9 fL Normal 81.0-99.0 [facility] Comment on above: Performed By: #### C BC #### [facility] [address] [place] [address] Dr. Jeffrey Thomas MONO # 0.4 103/ul Normal 0.3-0.8 [facility] Comment on above: Performed By: #### C BC #### [facility] [address] [place] [address] Dr. Jeffrey Thomas Monocytes/100 WBC (Bld) 7.8 % Normal 1.7-12.0 [facility] Comment on above: Performed By: #### C BC #### [facility] [address] [place] [address] Dr. Jeffrey Thomas NEUT # 3.2 103/ul Normal 1.4-6.5 [facility] Comment on above: Performed By: #### C BC #### [facility] [address] [place] [address] [address] Jeffrey Thomas Neutrophils/100 WBC (Bld) 56.4 % Normal 43.0-75.0 [facility] Comment on above: Performed By: #### C BC #### [facility] [address] [place] [address] [address] Jeffrey Thomas Platelet mean volume (Bld) [Entitic vol] 12.9 fL Normal 9.5-13.5 [facility] Comment on above: Performed By: #### C BC #### [facility] [address] [place] [address] [address] Jeffrey Thomas PLT 149 103/ul Critically low 150-450 [facility] Comment on above: Performed By: #### C BC #### [facility] [address] [place] [address] Dr. Jeffrey Thomas RBC 3.41 106/ul Critically low 4.20-5.40 [facility] Comment on above: Performed By: #### C BC #### [facility] [address] [place] [address] [address] Jeffrey Thomas WBC 5.6 103/ul Normal 4.0-11.0 [facility] Comment on above: Performed By: #### C BC #### [facility] [address] [place] [address] Dr. Jeffrey Thomas HEPATITIS PANEL, [facility] HBsAg Screen Negative Normal Negative [facility] Comment on above: Performed By: #### C MP #### [facility] [address] [place] [address] Dr. Jeffrey Thomas HCV AB Non-Reactive Normal Non Reactive [facility] Comment on above: Performed By: #### C MP #### [facility] [address] [place] [address] Dr. Jeffrey Thomas Hep A Ab, IgM Negative Normal Negative [facility] Comment on above: Performed By: #### C MP #### [facility] [address] [place] [address] Dr. Jeffrey Thomas Hep B Core Ab, IgM Negative Normal Negative [facility] Comment on above: Performed By: #### C MP #### [facility] [address] [place] [address] [address] Jeffrey Thomas [place] HEPATOBILIARY SCAN W [...] by: GARO CASILLAS Date: 2022-08-30 07:23 Normal [facility] PROF 14(COMP METB)on 023 Albumin [Mass/Vol] 2.5 g/dL Critically low 3.4-5.0 [facility] Comment on above: Performed By: #### T 4LC #### [facility] [address] [place] [address] [address] Jeffrey Thomas Albumin/Globulin [Mass ratio] 0.9 {ratio} Normal [facility] Comment on above: Performed By: #### T 4LC #### [facility] [address] [place] [address] [address] Jeffrey Thomas ALP [Catalytic activity/Vol] 97 U/L Normal 46-116 [facility] Comment on above: Performed By: #### T 4LC #### [facility] [address] [place] [address] [address] Jeffrey Thomas ALT [Catalytic activity/Vol] 39 U/L Normal 14-59 [facility] Comment on above: Performed By: #### T 4LC #### [facility] [address] [place] [address] [address] Jeffrey Thomas Anion gap [Moles/Vol] 12.9 mmol/L Normal [facility] Comment on above: Performed By: #### T 4LC #### [facility] [address] [place] [address] [address] Jeffrey Thomas AST [Catalytic activity/Vol] 19 U/L Normal 15-37 [facility] Comment on above: Performed By: #### T 4LC #### [facility] [address] [place] [address] [address] Jeffrey Thomas Bilirubin [Mass/Vol] 0.2 mg/dL Normal 0.2-1.0 [facility] Comment on above: Performed By: #### T 4LC #### [facility] [address] [place] [address] [address] Jeffrey Thomas Calcium [Mass/Vol] 8.2 mg/dL Critically low 8.5-10.1 [facility] Comment on above: Performed By: #### T 4LC #### [facility] [address] [place] [address] [address] Jeffrey Thomas Chloride [Moles/Vol] 111 mmol/L Critically high 98-107 [facility] Comment on above: Performed By: #### T 4LC #### [facility] [address] [place] [address] [address] Jeffrey Thomas CO2 [Moles/Vol] 24.2 mmol/L Normal 21.0-32.0 [facility] Comment on above: Performed By: #### T 4LC #### [facility] [address] [place] [address] [address] Jeffrey Thomas Creatinine [Mass/Vol] 1.05 mg/dL Critically high 0.55-1.02 [facility] Comment on above: Performed By: #### T 4LC #### [facility] [address] [place] [address] [address] Jeffrey Thomas EGFR-AF GREENLANDIC >60 Normal >=60 [facility] Comment on above: Performed By: #### T 4LC #### [facility] [address] [place] [address] [address] Jeffrey Thomas EGFR-NON AF GREENLANDIC 53 mL/min/1.73m2 Critically low >=60 [facility] Comment on above: Performed By: #### T 4LC #### [facility] [address] [place] [address] [address] Jeffrey Thomas Globulin (S) [Mass/Vol] 2.7 g/dL Normal [facility] Comment on above: Performed By: #### T 4LC #### [facility] [address] [place] [address] [address] Jeffrey Thomas Glucose [Mass/Vol] 109 mg/dL Critically high 74-106 [facility] Comment on above: Performed By: #### T 4LC #### [facility] [address] [place] [address] Dr. Jeffrey Thomas Potassium [Moles/Vol] 4.1 mmol/L Normal 3.5-5.1 [facility] Comment on above: Performed By: #### T 4LC #### [facility] [address] [place] [address] [address] Jeffrey Thomas Protein [Mass/Vol] 5.2 g/dL Critically low 6.4-8.2 [facility] Comment on above: Performed By: #### T 4LC #### [facility] [address] [place] [address] [address] Jeffrey Thomas Sodium [Moles/Vol] 144 mmol/L Normal 136-145 [facility] Comment on above: Performed By: #### T 4LC #### [facility] [address] [place] [address] [address] Jeffrey Thomas Urea nitrogen [Mass/Vol] 11.0 mg/dL Normal 7.0-18.0 [facility] Comment on above: Performed By: #### T 4LC #### [facility] [address] [place] [address] [address] Jeffrey Thomas Urea nitrogen/Creatinine [Mass ratio] 10.5 mg/mg Normal [facility] Comment on above: Performed By: #### T 4LC #### [facility] [address] [place] [address] Dr. Jeffrey Thomas CBC AUTO DIFFon 08-29-2022 BASO # 0.1 103/ul Normal 0.0-0.1 [facility] Comment on above: Performed By: #### T 4LC #### [facility] [address] [place] [address] Dr. Jeffrey Thomas Basophils/100 WBC (Bld) 1.2 % Normal 0.2-2.0 [facility] Comment on above: Performed By: #### T 4LC #### [facility] [address] [place] [address] Dr. Jeffrey Thomas EO # 0.2 103/ul Normal 0.0-0.7 [facility] Comment on above: Performed By: #### T 4LC #### [facility] [address] [place] [address] Dr. Jeffrey Thomas Eosinophils/100 WBC (Bld) 4.1 % Normal 0.9-7.0 [facility] Comment on above: Performed By: #### T 4LC #### [facility] [address] [place] [address] Dr. Jeffrey Thomas Erythrocyte distribution width (RBC) [Ratio] 14.6 % Normal 11.0-15.0 [facility] Comment on above: Performed By: #### T 4LC #### [facility] [address] [place] [address] Dr. Jeffrey Thomas Hematocrit (Bld) [Volume fraction] 33.6 % Critically low 36.0-48.0 [facility] Comment on above: Performed By: #### T 4LC #### [facility] [address] [place] [address] Dr. Jeffrey Thomas Hemoglobin (Bld) [Mass/Vol] 10.3 g/dL Critically low 12.0-16.0 [facility] Comment on above: Performed By: #### T 4LC #### [facility] [address] [place] [address] Dr. Jeffrey Thomas IG # 0.01 10e3/ul Normal 0.00-0.03 [facility] Comment on above: Performed By: #### T 4LC #### [facility] [address] [place] [address] Dr. Jeffrey Thomas IG % 0.2 % Normal 0.0-0.5 [facility] Comment on above: Performed By: #### T 4LC #### [facility] [address] [place] [address] Dr. Jeffrey Thomas LYMPH # 1.7 103/ul Normal 1.2-3.8 [facility] Comment on above: Performed By: #### T 4LC #### [facility] [address] [place] [address] Dr. Jeffrey Thomas Lymphocytes/100 WBC (Bld) 34.4 % Normal 20.5-60.0 [facility] [facility] Comment on above: Performed By: #### T 4LC #### [facility] [address] [place] [address] Dr. Jeffrey Thomas MANUAL DIFF REQ NO Normal [facility] Comment on above: Performed By: #### T 4LC #### [facility] [address] [place] [address] Dr. Jeffrey Thomas MCH (RBC) [Entitic mass] 29.5 pg Normal 26.7-34.0 [facility] Comment on above: Performed By: #### T 4LC #### [facility] [address] [place] [address] Dr. Jeffrey Thomas MCHC (RBC) [Mass/Vol] 30.7 g/dL Normal 29.9-35.2 [facility] Comment on above: Performed By: #### T 4LC #### [facility] [address] [place] [address] Dr. Jeffrey Thomas MCV (RBC) [Entitic vol] 96.3 fL Normal 81.0-99.0 [facility] Comment on above: Performed By: #### T 4LC #### [facility] [address] [place] [address] Dr. Jeffrey Thomas MONO # 0.4 103/ul Normal 0.3-0.8 [facility] Comment on above: Performed By: #### T 4LC #### [facility] [address] [address] [address] Jeffrey Thomas Monocytes/100 WBC (Bld) 8.2 % Normal 1.7-12.0 [facility] Comment on above: Performed By: #### T 4LC #### [facility] [address] [address] [address] Jeffrey Thomas NEUT # 2.5 103/ul Normal 1.4-6.5 [facility] Comment on above: Performed By: #### T 4LC #### [facility] [address] [address] [address] Jeffrey Thomas Neutrophils/100 WBC (Bld) 51.9 % Normal 43.0-75.0 [facility] Comment on above: Performed By: #### T 4LC #### [facility] [address] [place] [address] Dr. Jeffrey Thomas Platelet mean volume (Bld) [Entitic vol] 12.5 fL Normal 9.5-13.5 [facility] Comment on above: Performed By: #### T 4LC #### [facility] [address] [place] [address] Dr. Jeffrey Thomas PLT 157 103/ul Normal 150-450 [facility] Comment on above: Performed By: #### T 4LC #### [facility] [address] [address] [address] Jeffrey Thomas RBC 3.49 106/ul Critically low 4.20-5.40 [facility] Comment on above: Performed By: #### T 4LC #### [facility] [address] [place] [address] Dr. Jeffrey Thomas WBC 4.9 103/ul Normal 4.0-11.0 [facility] Comment on above: Performed By: #### T 4LC #### [facility] [address] [place] [address] Dr. Jeffrey Thomas PROF 14(COMP METB)on 023 Albumin [Mass/Vol] 2.6 g/dL Critically low 3.4-5.0 [facility] Comment on above: Performed By: #### C MP #### [facility] [address] [address] [address] Jeffrey Thomas Albumin/Globulin [Mass ratio] 1.0 {ratio} Normal [facility] Comment on above: Performed By: #### C MP #### [facility] [address] [address] [address] Jeffrey Thomas ALP [Catalytic activity/Vol] 94 U/L Normal 46-116 [facility] Comment on above: Performed By: #### C MP #### [facility] [address] [address] [address] Jeffrey Thomas ALT [Catalytic activity/Vol] 53 U/L Normal 14-59 [facility] Comment on above: Performed By: #### C MP #### [facility] [address] [place] [address] Dr. Jeffrey Thomas Anion gap [Moles/Vol] 11.2 mmol/L Normal [facility] Comment on above: Performed By: #### C MP #### [facility] [address] [place] [address] Dr. Jeffrey Thomas AST [Catalytic activity/Vol] 26 U/L Normal 15-37 [facility] Comment on above: Performed By: #### C MP #### [facility] [address] [place] [address] Dr. Jeffrey Thomas Bilirubin [Mass/Vol] 0.2 mg/dL Normal 0.2-1.0 [facility] Comment on above: Performed By: #### C MP #### [facility] [address] [place] [address] Dr. Jeffrey Thomas Calcium [Mass/Vol] 8.2 mg/dL Critically low 8.5-10.1 [facility] Comment on above: Performed By: #### C MP #### [facility] [address] [place] [address] Dr. Jeffrey Thomas Chloride [Moles/Vol] 114 mmol/L Critically high 98-107 [facility] Comment on above: Performed By: #### C MP #### [facility] [address] [address] [address] Jeffrey Thomas CO2 [Moles/Vol] 23.1 mmol/L Normal 21.0-32.0 [facility] Comment on above: Performed By: #### C MP #### [facility] [address] [address] [address] Jeffrey Thomas Creatinine [Mass/Vol] 0.95 mg/dL Normal 0.55-1.02 [facility] Comment on above: Performed By: #### C MP #### [facility] [address] [address] [address] Jeffrey Thomas EGFR-AF GREENLANDIC >60 Normal >=60 [facility] Comment on above: Performed By: #### C MP #### [facility] [address] [address] [address] Jeffrey Thomas EGFR-NON AF GRE[place] 59 mL/min/1.73m2 Critically low >=60 [facility] Comment on above: Performed By: #### C MP #### [facility] [address] [address] [address] Jeffrey Thomas Globulin (S) [Mass/Vol] 2.6 g/dL Normal [facility] Comment on above: Performed By: #### C MP #### [facility] [address] [address] [address] Jeffrey Thomas Glucose [Mass/Vol] 87 mg/dL Normal 74-106 [facility] Comment on above: Performed By: #### C MP #### [facility] [address] [address] [address] Jeffrey Thomas Potassium [Moles/Vol] 4.3 mmol/L Normal 3.5-5.1 [facility] Comment on above: Performed By: #### C MP #### [facility] [address] [address] [address] Jeffrey Thomas Protein [Mass/Vol] 5.2 g/dL Critically low 6.4-8.2 [facility] Comment on above: Performed By: #### C MP #### [facility] [address] [place] [address] Dr. Jeffrey Thomas Sodium [Moles/Vol] 144 mmol/L Normal 136-[address] [facility] Comment on above: Performed By: #### C MP #### [facility] [address] [place] [address] Dr. Jeffrey Thomas Urea nitrogen [Mass/Vol] 10.0 mg/dL Normal 7.0-18.0 [facility] Comment on above: Performed By: #### C MP #### [facility] [address] [place] [address] Dr. Jeffrey Thomas Urea nitrogen/Creatinine [Mass ratio] 10.5 mg/mg Normal [facility] Comment on above: Performed By: #### C MP #### [facility] [address] [place] [address] Dr. Jeffrey Thomas CBC AUTO DIFFon 08-28-2022 BASO # 0.1 103/ul Normal 0.0-0.1 [facility] Comment on above: Performed By: #### T 4LC #### [facility] [address] [place] [address] Dr. Jeffrey Thomas Basophils/100 WBC (Bld) 1.2 % Normal 0.2-2.0 [facility] Comment on above: Performed By: #### T 4LC #### [facility] [address] [place] [address] Dr. Jeffrey Thomas EO # 0.3 103/ul Normal 0.0-0.7 [facility] Comment on above: Performed By: #### T 4LC #### [facility] [address] [place] [address] Dr. Jeffrey Thomas Eosinophils/100 WBC (Bld) 4.4 % Normal 0.9-7.0 [facility] Comment on above: Performed By: #### T 4LC #### [facility] [address] [place] [address] Dr. Jeffrey Thomas Erythrocyte distribution width (RBC) [Ratio] 14.8 % Normal 11.0-15.0 [facility] Comment on above: Performed By: #### T 4LC #### [facility] [address] [place] [address] Dr. Jeffrey Thomas Hematocrit (Bld) [Volume fraction] 33.5 % Critically low 36.0-48.0 [facility] Comment on above: Performed By: #### T 4LC #### [facility] [address] [place] [address] Dr. Jeffrey Thomas Hemoglobin (Bld) [Mass/Vol] 10.1 g/dL Critically low 12.0-16.0 [facility] Comment on above: Performed By: #### T 4LC #### [facility] [address] [place] [address] Dr. Jeffrey Thomas IG # 0.01 10e3/ul Normal 0.00-0.03 [facility] Comment on above: Performed By: #### T 4LC #### [facility] [address] [place] [address] Dr. Jeffrey Thomas IG % 0.2 % Normal 0.0-0.5 [facility] Comment on above: Performed By: #### T 4LC #### [facility] [address] [place] [address] Dr. Jeffrey Thomas LYMPH # 2.1 103/ul Normal 1.2-3.8 [facility] Comment on above: Performed By: #### T 4LC #### [facility] [address] [place] [address] Dr. Jeffrey Thomas Lymphocytes/100 WBC (Bld) 35.1 % Normal 20.5-60.0 [facility] Comment on above: Performed By: #### T 4LC #### [facility] [address] [place] [address] Dr. Jeffrey Thomas MANUAL DIFF REQ NO Normal [facility] Comment on above: Performed By: #### T 4LC #### [facility] [address] [place] [address] Dr. Jeffrey Thomas MCH (RBC) [Entitic mass] 29.6 pg Normal 26.7-34.0 [facility] Comment on above: Performed By: #### T 4LC #### [facility] [address] [place] [address] Dr. Jeffrey Thomas MCHC (RBC) [Mass/Vol] 30.1 g/dL Normal 29.9-35.2 [facility] Comment on above: Performed By: #### T 4LC #### [facility] [address] [place] [address] Dr. Jeffrey Thomas MCV (RBC) [Entitic vol] 98.2 fL Normal 81.0-99.0 [facility] Comment on above: Performed By: #### T 4LC #### [facility] [address] [place] [address] Dr. Jeffrey Thomas MONO # 0.5 103/ul Normal 0.3-0.8 [facility] Comment on above: Performed By: #### T 4LC #### [facility] [address] [place] [address] Dr. Jeffrey Thomas Monocytes/100 WBC (Bld) 7.7 % Normal 1.7-12.0 [facility] Comment on above: Performed By: #### T 4LC #### [facility] [address] [place] [address] Dr. Jeffrey Thomas NEUT # 3.1 103/ul Normal 1.4-6.5 [facility] Comment on above: Performed By: #### T 4LC #### [facility] [address] [place] [address] Dr. Jeffrey Thomas Neutrophils/100 WBC (Bld) 51.4 % Normal 43.0-75.0 [facility] Comment on above: Performed By: #### T 4LC #### [facility] [address] [place] [address] Dr. Jeffrey Thomas Platelet mean volume (Bld) [Entitic vol] 12.1 fL Normal 9.5-13.5 [facility] Comment on above: Performed By: #### T 4LC #### [facility] [address] [place] [address] Dr. Jeffrey Thomas PLT 180 103/ul Normal 150-450 [facility] Comment on above: Performed By: #### T 4LC #### [facility] [address] [place] [address] Dr. Jeffrey Thomas RBC 3.41 106/ul Critically low 4.20-5.40 [facility] Comment on above: Performed By: #### T 4LC #### [facility] [address] [place] [address] Dr. Jeffrey Thomas WBC 6.0 103/ul Normal 4.0-11.0 [facility] Comment on above: Performed By: #### T 4LC #### [facility] [address] [place] [address] Dr. Jeffrey Thomas PROF 14(COMP METB)on 023 Albumin [Mass/Vol] 2.8 g/dL Critically low 3.4-5.0 [facility] Comment on above: Performed By: #### C MP #### [facility] [address] [place] [address] Dr. Jeffrey Thomas Albumin/Globulin [Mass ratio] 1.1 {ratio} Normal [facility] Comment on above: Performed By: #### C MP #### [facility] [address] [place] [address] Dr. Jeffrey Thomas ALP [Catalytic activity/Vol] 96 U/L Normal 46-116 [facility] Comment on above: Performed By: #### C MP #### [facility] [address] [place] [address] Dr. Jeffrey Thomas ALT [Catalytic activity/Vol] 72 U/L Critically high 14-59 [facility] Comment on above: Performed By: #### C MP #### [facility] [address] [place] [address] Dr. Jeffrey Thomas Anion gap [Moles/Vol] 12.8 mmol/L Normal [facility] Comment on above: Performed By: #### C MP #### [facility] [address] [place] [address] Dr. Jeffrey Thomas AST [Catalytic activity/Vol] 39 U/L Critically high 15-37 [facility] Comment on above: Performed By: #### C MP #### [facility] [address] [place] [address] Dr. Jeffrey Thomas Bilirubin [Mass/Vol] 0.2 mg/dL Normal 0.2-1.0 [facility] Comment on above: Performed By: #### C MP #### [facility] [address] [address] [address] Jeffrey Thomas Calcium [Mass/Vol] 7.8 mg/dL Critically low 8.5-10.1 [facility] Comment on above: Performed By: #### C MP #### [facility] [address] [address] [address] Jeffrey Thomas Chloride [Moles/Vol] 115 mmol/L Critically high 98-107 [facility] Comment on above: Performed By: #### C MP #### [facility] [address] [place] [address] Dr. Jeffrey Thomas CO2 [Moles/Vol] 20.4 mmol/L Critically low 21.0-32.0 [facility] Comment on above: Performed By: #### C MP #### [facility] [address] [place] [address] Dr. Jeffrey Thomas Creatinine [Mass/Vol] 0.98 mg/dL Normal 0.55-1.02 [facility] Comment on above: Performed By: #### C MP #### [facility] [address] [place] [address] Dr. Jeffrey Thomas EGFR-AF GRE[place]IC >60 Normal >=60 [facility] Comment on above: Performed By: #### C MP #### [facility] [address] [place] [address] Dr. Jeffrey Thomas EGFR-NON AF [place] 57 mL/min/1.73m2 Critically low >=60 [facility] Comment on above: Performed By: #### C MP #### [facility] [address] [place] [address] Dr. Jeffrey Thomas Globulin (S) [Mass/Vol] 2.6 g/dL Normal [facility] Comment on above: Performed By: #### C MP #### [facility] [address] [place] [address] Dr. Jeffrey Thomas Glucose [Mass/Vol] 80 mg/dL Normal 74-106 [facility] Comment on above: Performed By: #### C MP #### [facility] [address] [place] [address] Dr. Jeffrey Thomas Potassium [Moles/Vol] 4.2 mmol/L Normal 3.5-5.1 [facility] Comment on above: Performed By: #### C MP #### [facility] [address] [place] [address] Dr. Jeffrey Thomas Protein [Mass/Vol] 5.4 g/dL Critically low 6.4-8.2 [facility] Comment on above: Performed By: #### C MP #### [facility] [address] [place] [address] Dr. Jeffrey Thomas Sodium [Moles/Vol] 144 mmol/L Normal 136-145 [facility] Comment on above: Performed By: #### C MP #### [facility] [address] [place] [address] Dr. Jeffrey Thomas Urea nitrogen [Mass/Vol] 10.0 mg/dL Normal 7.0-18.0 [facility] Comment on above: Performed By: #### C MP #### [facility] [address] [place] [address] Dr. Jeffrey Thomas Urea nitrogen/Creatinine [Mass ratio] 10.2 mg/mg Normal [facility] Comment on above: Performed By: #### C MP #### [facility] [address] [place] [address] Dr. Jeffrey Thomas CBC AUTO DIFFon 08-27-2022 BASO # 0.1 103/ul Normal 0.0-0.1 [facility] Comment on above: Performed By: #### C MP #### [facility] [address] [place] [address] Dr. Jeffrey Thomas Basophils/100 WBC (Bld) 1.2 % Normal 0.2-2.0 [facility] Comment on above: Performed By: #### C MP #### [facility] [address] [place] [address] Dr. Jeffrey Thomas EO # 0.2 103/ul Normal 0.0-0.7 [facility] Comment on above: Performed By: #### C MP #### [facility] [address] [place] [address] Dr. Jeffrey Thomas Eosinophils/100 WBC (Bld) 4.0 % Normal 0.9-7.0 [facility] Comment on above: Performed By: #### C MP #### [facility] [address] [place] [address] Dr. Jeffrey Thomas Erythrocyte distribution width (RBC) [Ratio] 14.6 % Normal 11.0-15.0 [facility] Comment on above: Performed By: #### C MP #### [facility] [address] [place] [address] Dr. Jeffrey Thomas Hematocrit (Bld) [Volume fraction] 35.8 % Critically low 36.0-48.0 [facility] Comment on above: Performed By: #### C MP #### [facility] [address] [place] [address] Dr. Jeffrey Thomas Hemoglobin (Bld) [Mass/Vol] 11.4 g/dL Critically low 12.0-16.0 [facility] Comment on above: Performed By: #### C MP #### [facility] [address] [place] [address] Dr. Jeffrey Thomas IG # 0.01 10e3/ul Normal 0.00-0.03 [facility] Comment on above: Performed By: #### C MP #### [facility] [address] [place] [address] Dr. Jeffrey Thomas IG % 0.2 % Normal 0.0-0.5 [facility] Comment on above: Performed By: #### C MP #### [facility] [address] [place] [address] Dr. Jeffrey Thomas LYMPH # 2.0 103/ul Normal 1.2-3.8 [facility] Comment on above: Performed By: #### C MP #### [facility] [address] [place] [address] Dr. Jeffrey Thomas Lymphocytes/100 WBC (Bld) 35.4 % Normal 20.5-60.0 [facility] Comment on above: Performed By: #### C MP #### [facility] [address] [place] [address] Dr. Jeffrey Thomas MANUAL DIFF REQ NO Normal [facility] Comment on above: Performed By: #### C MP #### [facility] [address] [place] [address] Dr. Jeffrey Thomas MCH (RBC) [Entitic mass] 29.9 pg Normal 26.7-34.0 [facility] Comment on above: Performed By: #### C MP #### [facility] [address] [place] [address] Dr. Jeffrey Thomas MCHC (RBC) [Mass/Vol] 31.8 g/dL Normal 29.9-35.2 [facility] Comment on above: Performed By: #### C MP #### [facility] [address] [place] [address] Dr. Jeffrey Thomas MCV (RBC) [Entitic vol] 94.0 fL Normal 81.0-99.0 [facility] Comment on above: Performed By: #### C MP #### [facility] [address] [place] [address] Dr. Jeffrey Thomas MONO # 0.5 103/ul Normal 0.3-0.8 [facility] Comment on above: Performed By: #### C MP #### [facility] [address] [place] [address] Dr. Jeffrey Thomas Monocytes/100 WBC (Bld) 9.2 % Normal 1.7-12.0 [facility] Comment on above: Performed By: #### C MP #### [facility] [address] [place] [address] Dr. Jeffrey Thomas NEUT # 2.8 103/ul Normal 1.4-6.5 [facility] Comment on above: Performed By: #### C MP #### [facility] [address] [place] [address] Dr. Jeffrey Thomas Neutrophils/100 WBC (Bld) 50.0 % Normal 43.0-75.0 [facility] Comment on above: Performed By: #### C MP #### [facility] [address] [address] [address] Jeffrey Thomas Platelet mean volume (Bld) [Entitic vol] 12.0 fL Normal 9.5-13.5 [facility] Comment on above: Performed By: #### C MP #### [facility] [address] [address] [address] Jeffrey Thomas PLT 199 103/ul Normal 150-450 [facility] Comment on above: Performed By: #### C MP #### [facility] [address] [address] [address] Jeffrey Thomas RBC 3.81 106/ul Critically low 4.20-5.40 [facility] Comment on above: Performed By: #### C MP #### [facility] [address] [address] [address] Jeffrey Thomas WBC 5.7 103/ul Normal 4.0-11.0 [facility] Comment on above: Performed By: #### C MP #### [facility] [address] [address] [address] Jeffrey Thomas LACTATE/LACTIC ACIDon 2022 Lactate [Moles/Vol] 0.6 mmol/L Normal 0.4-2.0 [facility] Comment on above: Performed By: #### C MP #### [facility] [address] [address] [address] Jeffrey Thomas Lactate [Moles/Vol] 2.8 mmol/L Critically high 0.4-2.0 [facility] Comment on above: Performed By: #### T 4LC #### [facility] [address] [address] [address] Jeffrey Thomas PROF 14(COMP METB)on 023 Albumin [Mass/Vol] 2.8 g/dL Critically low 3.4-5.0 [facility] Comment on above: Performed By: #### C MP #### [facility] [address] [place] [address] Dr. Jeffrey Thomas Albumin/Globulin [Mass ratio] 0.9 {ratio} Normal [facility] Comment on above: Performed By: #### C MP #### [facility] [address] [address] [address] Jeffrey Thomas ALP [Catalytic activity/Vol] 100 U/L Normal 46-116 [facility] Comment on above: Performed By: #### C MP #### [facility] [address] [address] [address] Jeffrey Thomas ALT [Catalytic activity/Vol] 102 U/L Critically high 14-59 [facility] Comment on above: Performed By: #### C MP #### [facility] [address] [address] [address] Jeffrey Thomas Anion gap [Moles/Vol] 17.0 mmol/L Normal [facility] Comment on above: Performed By: #### C MP #### [facility] [address] [place] [address] Dr. Jeffrey Thomas AST [Catalytic activity/Vol] 62 U/L Critically high 15-37 [facility] Comment on above: Performed By: #### C MP #### [facility] [address] [address] [address] Jeffrey Thomas Bilirubin [Mass/Vol] 0.3 mg/dL Normal 0.2-1.0 [facility] Comment on above: Performed By: #### C MP #### [facility] [address] [place] [address] Dr. Jeffrey Thomas Calcium [Mass/Vol] 8.1 mg/dL Critically low 8.5-10.1 [facility] Comment on above: Performed By: #### C MP #### [facility] [address] [address] [address] Jeffrey Thomas Chloride [Moles/Vol] 110 mmol/L Critically high 98-107 [facility] Comment on above: Performed By: #### C MP #### [facility] [address] [place] [address] Dr. Jeffrey Thomas CO2 [Moles/Vol] 18.6 mmol/L Critically low 21.0-32.0 [facility] Comment on above: Performed By: #### C MP #### [facility] [address] [address] [address] Jeffrey Thomas Creatinine [Mass/Vol] 1.43 mg/dL Critically high 0.55-1.02 [facility] Comment on above: Performed By: #### C MP #### [facility] [address] [address] [address] Jeffrey Thomas EGFR-AF [place] 45 mL/min/1.73m2 Critically low >=60 [facility] Comment on above: Performed By: #### C MP #### [facility] [address] [address] [address] Jeffrey Thomas EGFR-NON AF [place] 37 mL/min/1.73m2 Critically low >=60 [facility] Comment on above: Performed By: #### C MP #### [facility] [address] [address] [address] Jeffrey Thomas Globulin (S) [Mass/Vol] 3.0 g/dL Normal [facility] Comment on above: Performed By: #### C MP #### [facility] [address] [address] [address] Jeffrey Thomas Glucose [Mass/Vol] 141 mg/dL Critically high 74-106 [facility] Comment on above: Performed By: #### C MP #### [facility] [address] [address] [address] Jeffrey Thomas Potassium [Moles/Vol] 3.6 mmol/L Normal 3.5-5.1 [facility] Comment on above: Performed By: #### C MP #### [facility] [address] [address] [address] Jeffrey Thomas Protein [Mass/Vol] 5.8 g/dL Critically low 6.4-8.2 [facility] Comment on above: Performed By: #### C MP #### [facility] [address] [address] [address] Jeffrey Thomas Sodium [Moles/Vol] 142 mmol/L Normal 136-145 [facility] Comment on above: Performed By: #### C MP #### [facility] [address] [address] [address] Jeffrey Thomas Urea nitrogen [Mass/Vol] 22.0 mg/dL Critically high 7.0-18.0 [facility] Comment on above: Performed By: #### C MP #### [facility] [address] [address] [address] Jeffrey Thomas Urea nitrogen/Creatinine [Mass ratio] 15.4 mg/mg Normal [facility] Comment on above: Performed By: #### C MP #### [facility] [address] [address] [address] Jeffrey Thomas AMYLASEon 08-26-2022 Amylase [Catalytic activity/Vol] 40 U/L Normal 25-115 [facility] Comment on above: Performed By: #### C MP #### [facility] [address] [place] [address] Dr. Jeffrey Thomas CARDIAC CHONG ADMITon 023 CK [Catalytic activity/Vol] 39 U/L Normal 26-192 [facility] Comment on above: Performed By: #### C BLAEK AGUILERADM #### [facility] [address] [place] [address] Dr. Jeffrey Thomas CK.MB [Mass/Vol] 1.47 ng/mL Normal <=3.60 [facility] Comment on above: Performed By: #### C ALE, CMADM #### [facility] [address] [place] [address] Dr. Jeffrey Thomas HSTROP 7.0 pg/mL Normal 4.0-51.3 [facility] Comment on above: Result Comment: CUT- OFF POINTS HAVE BEEN ESTABLISHED BASED ON THE FOURTH UNIVERSAL DEFINITIONS OF MYOCARDIAL INFARCTION. THE UPPER REFERENCE LIMIT (URL) OF TROPONIN, DEFINED THE 99TH PERCENTILE OF cTnI DISTRIBUTION IN A REFERENCE POPULATION, HAS BEEN CONFIRMED THE DECISION THRESHOLD FOR IN DIAGNOSIS. Performed By: #### C ALE, CMADM #### [facility] [address] [address] [address] Jeffrey Thomas SHONNA 107 ng/mL Critically high 9-82 [facility] Comment on above: Performed By: #### C MP, CMADM #### [facility] [address] [address] [address] Jeffrey Thomas CBC AUTO DIFFon 08-26-2022 BASO # 0.1 103/ul Normal 0.0-0.1 [facility] Comment on above: Performed By: #### C MP #### [facility] [address] [address] [address] Jeffrey Thomas Basophils/100 WBC (Bld) 0.9 % Normal 0.2-2.0 [facility] Comment on above: Performed By: #### C MP #### [facility] [address] [address] [address] Jeffrey Thomas EO # 0.1 103/ul Normal 0.0-0.7 [facility] Comment on above: Performed By: #### C MP #### [facility] [address] [address] [address] Jeffrey Thomas Eosinophils/100 WBC (Bld) 0.9 % Normal 0.9-7.0 [facility] Comment on above: Performed By: #### C MP #### [facility] [address] [place] [address] Dr. Jeffrey Thomas Erythrocyte distribution width (RBC) [Ratio] 14.1 % Normal 11.0-15.0 [facility] Comment on above: Performed By: #### C MP #### [facility] [address] [place] [address] Dr. Jeffrey Thomas Hematocrit (Bld) [Volume fraction] 48.3 % Critically high 36.0-48.0 [facility] Comment on above: Performed By: #### C MP #### [facility] [address] [place] [address] Dr. Jeffrey Thomas Hemoglobin (Bld) [Mass/Vol] 15.4 g/dL Normal 12.0-16.0 [facility] Comment on above: Performed By: #### C MP #### [facility] [address] [place] [address] Dr. Jeffrey Thomas IG # 0.04 10e3/ul Critically high 0.00-0.03 [facility] Comment on above: Performed By: #### C MP #### [facility] [address] [place] [address] Dr. Jeffrey Thomas IG % 0.3 % Normal 0.0-0.5 [facility] Comment on above: Performed By: #### C MP #### [facility] [address] [place] [address] Dr. Jeffrey Thomas LYMPH # 1.2 103/ul Normal 1.2-3.8 [facility] Comment on above: Performed By: #### C MP #### [facility] [address] [place] [address] Dr. Jeffrey Thomas Lymphocytes/100 WBC (Bld) 10.0 % Critically low 20.5-60.0 [facility] Comment on above: Performed By: #### C MP #### [facility] [address] [place] [address] Dr. Jeffrey Thomas MANUAL DIFF REQ NO Normal [facility] Comment on above: Performed By: #### C MP #### [facility] [address] [place] [address] Dr. Jeffrey Thomas MCH (RBC) [Entitic mass] 29.7 pg Normal 26.7-34.0 [facility] Comment on above: Performed By: #### C MP #### [facility] [address] [place] [address] Dr. Jeffrey Thomas MCHC (RBC) [Mass/Vol] 31.9 g/dL Normal 29.9-35.2 [facility] Comment on above: Performed By: #### C MP #### [facility] [address] [place] [address] Dr. Jeffrey Thomas MCV (RBC) [Entitic vol] 93.1 fL Normal 81.0-99.0 [facility] Comment on above: Performed By: #### C MP #### [facility] [address] [place] [address] Dr. Jeffrey Thomas MONO # 0.5 103/ul Normal 0.3-0.8 [facility] Comment on above: Performed By: #### C MP #### [facility] [address] [address] [address] Jeffrey Thomas Monocytes/100 WBC (Bld) 4.1 % Normal 1.7-12.0 [facility] Comment on above: Performed By: #### C MP #### [facility] [address] [address] [address] Jeffrey Thomas NEUT # 10.2 103/ul Critically high 1.4-6.5 [facility] Comment on above: Performed By: #### C MP #### [facility] [address] [address] [address] Jeffrey Thomas Neutrophils/100 WBC (Bld) 83.8 % Critically high 43.0-75.0 [facility] Comment on above: Performed By: #### C MP #### [facility] [address] [place] [address] Dr. Jeffrey Thomas Platelet mean volume (Bld) [Entitic vol] 12.2 fL Normal 9.5-13.5 [facility] Comment on above: Performed By: #### C MP #### [facility] [address] [address] [address] Jeffrey Thomas PLT 303 103/ul Normal 150-450 [facility] Comment on above: Performed By: #### C MP #### [facility] [address] [place] [address] Dr. Jeffrey Thomas RBC 5.19 106/ul Normal 4.20-5.40 [facility] Comment on above: Performed By: #### C MP #### [facility] [address] [address] [address] Jeffrey Thomas WBC 12.2 103/ul Critically high 4.0-11.0 [facility] Comment on above: Performed By: #### C MP #### [facility] [address] [place] [address] ABD/PELVIS WO CONon [...] by: SALVADOR POTTS Date: 2022-08-26 15:43 Normal [facility] LIPASEon 08-26-2022 Lipase [Catalytic activity/Vol] 27.0 U/L Critically low 73.0-393.0 [facility] Comment on above: Performed By: #### Stef ACT #### [facility] [address] [place] [address] Dr. Jeffrey Thomas PROF 14(COMP METB)on 023 Albumin [Mass/Vol] 3.7 g/dL Normal 3.4-5.0 [facility] Comment on above: Performed By: #### JUANITO Palumbo MP #### [facility] [address] [place] [address] Dr. Jeffrey Thomas Albumin/Globulin [Mass ratio] 0.9 {ratio} Normal [facility] Comment on above: Performed By: #### C JUANITO AGUILERA #### [facility] [address] [address] [address] Jeffrey Thomas ALP [Catalytic activity/Vol] 138 U/L Critically high 46-116 [facility] Comment on above: Performed By: #### C ALE, CMADM #### [facility] [address] [address] [address] Jeffrey Thomas ALT [Catalytic activity/Vol] 174 U/L Critically high 14-59 [facility] Comment on above: Performed By: #### C ALE, CMADM #### [facility] [address] [address] [address] Jeffrey Thomas Anion gap [Moles/Vol] 20.4 mmol/L Normal [facility] Comment on above: Performed By: #### C ALE, CMADM #### [facility] [address] [address] [address] Jeffrey Thomas AST [Catalytic activity/Vol] 135 U/L Critically high 15-37 [facility] Comment on above: Performed By: #### C ALE, CMADM #### [facility] [address] [address] [address] Jeffrey Thomas Bilirubin [Mass/Vol] 0.4 mg/dL Normal 0.2-1.0 [facility] Comment on above: Performed By: #### C ALE, CMADM #### [facility] [address] [address] [address] Jeffrey Thomas Calcium [Mass/Vol] 9.1 mg/dL Normal 8.5-10.1 [facility] Comment on above: Performed By: #### C ALE, CMADM #### [facility] [address] [address] [address] Jeffrey Thomas Chloride [Moles/Vol] 103 mmol/L Normal 98-107 [facility] Comment on above: Performed By: #### C ALE, CMADM #### [facility] [address] [address] [address] Jeffrey Thomas CO2 [Moles/Vol] 18.5 mmol/L Critically low 21.0-32.0 [facility] Comment on above: Performed By: #### C ALE, CMADM #### [facility] [address] [address] [address] Jeffrey Thomas Creatinine [Mass/Vol] 1.85 mg/dL Critically high 0.55-1.02 [facility] Comment on above: Performed By: #### C MP, CMADM #### [facility] [address] [address] [address] Jeffrey Thomas EGFR-AF GREENLANDIC 33 mL/min/1.73m2 Critically low >=60 [facility] Comment on above: Performed By: #### C MP, CMADM #### [facility] [address] [address] [address] Jeffrey Thomas EGFR-NON AF GREENLANDIC 27 mL/min/1.73m2 Critically low >=60 [facility] Comment on above: Performed By: #### C MP, CMADM #### [facility] [address] [address] [address] Jeffrey Thomas Globulin (S) [Mass/Vol] 4.0 g/dL Normal [facility] Comment on above: Performed By: #### C MP, CMADM #### [facility] [address] [address] [address] Jeffrey Thomas Glucose [Mass/Vol] 110 mg/dL Critically high 74-106 [facility] Comment on above: Performed By: #### C MP, CMADM #### [facility] [address] [address] [address] Jeffrey Thomas Potassium [Moles/Vol] 3.9 mmol/L Normal 3.5-5.1 [facility] Comment on above: Performed By: #### C MP, CMADM #### [facility] [address] [address] [address] Jeffrey Thomas Protein [Mass/Vol] 7.7 g/dL Normal 6.4-8.[address] [facility] Comment on above: Performed By: #### C MP, CMADM #### [facility] [address] [address] [address] Jeffrey Thomas Sodium [Moles/Vol] 138 mmol/L Normal 136-145 [facility] Comment on above: Performed By: #### C MP, CMADM #### [facility] [address] [place], [place] [address] Dr. Jeffrey Thomas Urea nitrogen [Mass/Vol] 32.0 mg/dL Critically high 7.0-18.0 [facility] Comment on above: Performed By: #### C MP, CMADM #### [facility] [address] [place], [place] [address] Dr. Jeffrey Thomas Urea nitrogen/Creatinine [Mass ratio] 17.3 mg/mg Normal [facility] Comment on above: Performed By: #### C MP, CMADM #### [facility] [address] [place], [place] [address] Dr. Jeffrey Thomas US SINGLE QUAD RT [...] LIDIA COLÓN Date: 2022-08-26 20:40 Normal [facility] CBC AUTO DIFFon 08-01-2022 BASO # 0.1 103/ul Normal 0.0-0.1 [facility] Comment on above: Performed By: #### T 4LC #### [facility] [address] [address] [address] Jeffrey Thomas Basophils/100 WBC (Bld) 1.3 % Normal 0.2-2.0 [facility] Comment on above: Performed By: #### T 4LC #### [facility] [address] [place] [address] Dr. Jeffrey Thomas EO # 0.2 103/ul Normal 0.0-0.7 [facility] Comment on above: Performed By: #### T 4LC #### [facility] [address] [place] [address] Dr. Jeffrey Thomas Eosinophils/100 WBC (Bld) 2.8 % Normal 0.9-7.0 [facility] Comment on above: Performed By: #### T 4LC #### [facility] [address] [place] [address] Dr. Jeffrey Thomas Erythrocyte distribution width (RBC) [Ratio] 15.9 % Critically high 11.0-15.0 [facility] Comment on above: Performed By: #### T 4LC #### [facility] [address] [place] [address] Dr. Jeffrey Thomas Hematocrit (Bld) [Volume fraction] 37.7 % Normal 36.0-48.0 [facility] Comment on above: Performed By: #### T 4LC #### [facility] [address] [place] [address] Dr. Jeffrey Thomas Hemoglobin (Bld) [Mass/Vol] 11.5 g/dL Critically low 12.0-16.0 [facility] Comment on above: Performed By: #### T 4LC #### [facility] [address] [place] [address] Dr. Jeffrey Thomas IG # 0.03 10e3/ul Normal 0.00-0.03 [facility] Comment on above: Performed By: #### T 4LC #### [facility] [address] [place] [address] Dr. Jeffrey Thomas IG % 0.4 % Normal 0.0-0.5 [facility] Comment on above: Performed By: #### T 4LC #### [facility] [address] [place] [address] Dr. Jeffrey Thomas LYMPH # 1.6 103/ul Normal 1.2-3.8 [facility] Comment on above: Performed By: #### 4LC #### [facility] [address] [place] [address] Dr. Jeffrey Thomas Lymphocytes/100 WBC (Bld) 20.9 % Normal 20.5-60.0 [facility] Comment on above: Performed By: #### 4LC #### [facility] [address] [place] [address] Dr. Jeffrey Thomas MANUAL DIFF REQ NO Normal [facility] Comment on above: Performed By: #### 4LC #### [facility] [address] [place] [address] Dr. Jeffrey Thomas MCH (RBC) [Entitic mass] 30.0 pg Normal 26.7-34.0 [facility] Comment on above: Performed By: #### 4LC #### [facility] [address] [place] [address] Dr. Jeffrey Thomas MCHC (RBC) [Mass/Vol] 30.5 g/dL Normal 29.9-35.2 [facility] Comment on above: Performed By: #### T 4LC #### [facility] [address] [place] [address] Dr. Jeffrey Thomas MCV (RBC) [Entitic vol] 98.4 fL Normal 81.0-99.0 [facility] Comment on above: Performed By: #### T 4LC #### [facility] [address] [place] [address] Dr. Jeffrey Thomas MONO # 0.7 103/ul Normal 0.3-0.8 [facility] Comment on above: Performed By: #### 4LC #### [facility] [address] [place] [address] Dr. eJffrey Thomas Monocytes/100 WBC (Bld) 8.7 % Normal 1.7-12.0 [facility] Comment on above: Performed By: #### T 4LC #### [facility] [address] [place] [address] Dr. Jeffrey Thomas NEUT # 5.2 103/ul Normal 1.4-6.5 [facility] Comment on above: Performed By: #### T 4LC #### [facility] [address] [place] [address] Dr. Jeffrey Thomas Neutrophils/100 WBC (Bld) 65.9 % Normal 43.0-75.0 [facility] Comment on above: Performed By: #### T 4LC #### [facility] [address] [place] [address] Dr. Jeffrey Thomas Platelet mean volume (Bld) [Entitic vol] 11.8 fL Normal 9.5-13.5 [facility] Comment on above: Performed By: #### T 4LC #### [facility] [address] [place] [address] Dr. Jeffrey Thomas PLT 265 103/ul Normal 150-450 [facility] Comment on above: Performed By: #### T 4LC #### [facility] [address] [place] [address] Dr. Jeffrey Thomas RBC 3.83 106/ul Critically low 4.20-5.40 [facility] Comment on above: Performed By: #### T 4LC #### [facility] [address] [place] [address] Dr. Jeffrey Thomas WBC 7.8 103/ul Normal 4.0-11.0 [facility] Comment on above: Performed By: #### T 4LC #### [facility] [address] [place] [address] Dr. Jeffrey Thomas CULTURE BLOODon 08-01-2022 Microscopic examination of blood, culture Culture Observations: NO GROWTH AT 5 DAYS. Normal [facility] Comment on above: Performed By: #### A MM #### [facility] [address] [place] [address] Dr. Jeffrey Thomas PROF 14(COMP METB)on 023 Albumin [Mass/Vol] 3.4 g/dL Normal 3.4-5.0 [facility] Comment on above: Performed By: #### C MP #### [facility] [address] [place] [address] Dr. Jeffrey Thomas Albumin/Globulin [Mass ratio] 0.8 {ratio} Normal [facility] Comment on above: Performed By: #### C MP #### [facility] [address] [place] [address] Dr. Jeffrey Thomas ALP [Catalytic activity/Vol] 98 U/L Normal 46-116 [facility] Comment on above: Performed By: #### C MP #### [facility] [address] [place] [address] Dr. Jeffrey Thomas ALT [Catalytic activity/Vol] 18 U/L Normal 14-59 [facility] Comment on above: Performed By: #### C MP #### [facility] [address] [place] [address] Dr. Jeffrey Thomas Anion gap [Moles/Vol] 13.3 mmol/L Normal [facility] Comment on above: Performed By: #### C MP #### [facility] [address] [place] [address] Dr. Jeffrey Thomas AST [Catalytic activity/Vol] 21 U/L Normal 15-37 [facility] Comment on above: Performed By: #### C MP #### [facility] [address] [place] [address] Dr. Jeffrey Thomas Bilirubin [Mass/Vol] 0.2 mg/dL Normal 0.2-1.0 [facility] Comment on above: Performed By: #### C MP #### [facility] [address] [place] [address] Dr. Jeffrey Thomas Calcium [Mass/Vol] 9.2 mg/dL Normal 8.5-10.1 [facility] Comment on above: Performed By: #### C MP #### [facility] [address] [address] [address] Jeffrey Thomas Chloride [Moles/Vol] 106 mmol/L Normal 98-107 [facility] Comment on above: Performed By: #### C MP #### [facility] [address] [address] [address] Jeffrey Thomas CO2 [Moles/Vol] 23.8 mmol/L Normal 21.0-32.0 [facility] Comment on above: Performed By: #### C MP #### [facility] [address] [place] [address] Dr. Jeffrey Thomas Creatinine [Mass/Vol] 1.07 mg/dL Critically high 0.55-1.02 [facility] Comment on above: Performed By: #### C MP #### [facility] [address] [place] [address] Dr. Jeffrey Thomas EGFR-AF GREENLANDIC >60 Normal >=60 [facility] Comment on above: Performed By: #### C MP #### [facility] [address] [place] [address] Dr. Jeffery Thomas EGFR-NON AF GREENLANDIC 51 mL/min/1.73m2 Critically low >=60 [facility] Comment on above: Performed By: #### C MP #### [facility] [address] [place] [address] Dr. Jeffrey Thomas Globulin (S) [Mass/Vol] 4.1 g/dL Normal [facility] Comment on above: Performed By: #### C MP #### [facility] [address] [address] [address] Jeffrey Thomas Glucose [Mass/Vol] 77 mg/dL Normal 74-106 [facility] Comment on above: Performed By: #### C MP #### [facility] [address] [place] [address] Dr. Jeffrey Thomas Potassium [Moles/Vol] 5.1 mmol/L Normal 3.5-5.1 [facility] Comment on above: Performed By: #### C MP #### [facility] [address] [place] [address] Dr. Jeffrey Thomas Protein [Mass/Vol] 7.5 g/dL Normal 6.4-8.2 [facility] Comment on above: Performed By: #### C MP #### [facility] [address] [place] [address] Dr. Jeffrey Thomas Sodium [Moles/Vol] 138 mmol/L Normal 136-145 [facility] Comment on above: Performed By: #### C MP #### [facility] [address] [place] [address] Dr. Jeffrey Thomsa Urea nitrogen [Mass/Vol] 36.0 mg/dL Critically high 7.0-18.0 [facility] Comment on above: Performed By: #### C MP #### [facility] [address] [place] [address] Dr. Jeffrey Thomas Urea nitrogen/Creatinine [Mass ratio] 33.6 mg/mg Normal [facility] Comment on above: Performed By: #### C MP #### [facility] [address] [place] [address] Dr. Jeffrey Thomas [facility] 42 mm/hr Critically high <=30 [facility] Comment on above: Performed By: #### C MP #### [facility] [address] [place] [address] Dr. Jeffrey Thomas AMMONIAon 05-23-2022 Ammonia (P) [Moles/Vol] 18 umol/L Normal 11-32 [facility] Comment on above: Performed By: #### C MP #### [facility] [address] [place] [address] Dr. Jeffrey Thomas AMYLASEon 05-23-2022 Amylase [Catalytic activity/Vol] 30 U/L Normal 25-115 [facility] Comment on above: Performed By: #### A MM #### [facility] [address] [place] [address] Dr. Jeffrey Thomas BNPon 05-23-2022 Natriuretic peptide B (Bld) [Mass/Vol] 1066.0 pg/mL Critically high <=900.0 [facility] Comment on above: Performed By: #### A MM #### [facility] [address] [address] [address] Jeffrey Thomas CBC AUTO DIFFon 05-23-2022 BASO # 0.1 103/ul Normal 0.0-0.1 [facility] Comment on above: Performed By: #### C MP #### [facility] [address] [address] [address] Jeffrey Thomas Basophils/100 WBC (Bld) 1.1 % Normal 0.2-2.0 [facility] Comment on above: Performed By: #### C MP #### [facility] [address] [place] [address] Dr. Jeffrey Thomas EO # 0.2 103/ul Normal 0.0-0.7 [facility] Comment on above: Performed By: #### C MP #### [facility] [address] [place] [address] Dr. Jeffrey Thomas Eosinophils/100 WBC (Bld) 3.1 % Normal 0.9-7.0 [facility] Comment on above: Performed By: #### C MP #### [facility] [address] [place] [address] Dr. Jeffrey Thomas Erythrocyte distribution width (RBC) [Ratio] 17.2 % Critically high 11.0-15.0 [facility] Comment on above: Performed By: #### C MP #### [facility] [address] [place] [address] Dr. Jeffrey Thomas Hematocrit (Bld) [Volume fraction] 33.0 % Critically low 36.0-48.0 [facility] Comment on above: Performed By: #### C MP #### [facility] [address] [place] [address] Dr. Jeffrey Thomas Hemoglobin (Bld) [Mass/Vol] 10.3 g/dL Critically low 12.0-16.0 [facility] Comment on above: Performed By: #### C MP #### [facility] [address] [place] [address] Dr. Jeffrey Thomas IG # 0.02 10e3/ul Normal 0.00-0.03 [facility] Comment on above: Performed By: #### C MP #### [facility] [address] [place] [address] Dr. Jeffrey Thomas IG % 0.3 % Normal 0.0-0.5 [facility] Comment on above: Performed By: #### C MP #### [facility] [address] [place] [address] Dr. Jeffrey Thomas LYMPH # 1.8 103/ul Normal 1.2-3.8 [facility] Comment on above: Performed By: #### C MP #### [facility] [address] [place] [address] Dr. Jeffrey Thomas Lymphocytes/100 WBC (Bld) 27.8 % Normal 20.5-60.0 [facility] Comment on above: Performed By: #### C MP #### [facility] [address] [place] [address] Dr. Jeffrey Thomas MANUAL DIFF REQ NO Normal [facility] Comment on above: Performed By: #### C MP #### [facility] [address] [place] [address] Dr. Jeffrey Thomas MCH (RBC) [Entitic mass] 28.4 pg Normal 26.7-34.0 [facility] Comment on above: Performed By: #### C MP #### [facility] [address] [place] [address] Dr. Jeffrey Thomas MCHC (RBC) [Mass/Vol] 31.2 g/dL Normal 29.9-35.2 [facility] Comment on above: Performed By: #### C MP #### [facility] [address] [place] [address] Dr. Jeffrey Thomas MCV (RBC) [Entitic vol] 90.9 fL Normal 81.0-99.0 [facility] Comment on above: Performed By: #### C MP #### [facility] [address] [place] [address] Dr. Jeffrey Thomas MONO # 0.4 103/ul Normal 0.3-0.8 [facility] Comment on above: Performed By: #### C MP #### [facility] [address] [place] [address] Dr. Jeffrey Thomas Monocytes/100 WBC (Bld) 6.7 % Normal 1.7-12.0 [facility] Comment on above: Performed By: #### C MP #### [facility] [address] [place] [address] Dr. Jeffrey Thomas NEUT # 4.0 103/ul Normal 1.4-6.5 [facility] Comment on above: Performed By: #### C MP #### [facility] [address] [place] [address] Dr. Jeffrey Thomas Neutrophils/100 WBC (Bld) 61.0 % Normal 43.0-75.0 [facility] Comment on above: Performed By: #### C MP #### [facility] [address] [place] [address] Dr. Jeffrey Thomas Platelet mean volume (Bld) [Entitic vol] 10.4 fL Normal 9.5-13.5 [facility] Comment on above: Performed By: #### C MP #### [facility] [address] [place] [address] Dr. Jeffrey Thomas PLT 218 103/ul Normal 150-450 [facility] Comment on above: Performed By: #### C MP #### [facility] [address] [place] [address] Dr. Jeffrey Thomas RBC 3.63 106/ul Critically low 4.20-5.40 [facility] Comment on above: Performed By: #### C MP #### [facility] [address] [place] [address] Dr. Jeffrey Thomas WBC 6.5 103/ul Normal 4.0-11.0 [facility] Comment on above: Performed By: #### C MP #### [facility] [address] [place] [address] Dr. Jeffrey Thomas MAGNESIUMon 05-23-2022 Magnesium [Mass/Vol] 1.4 mg/dL Critically low 1.8-2.4 [facility] Comment on above: Performed By: #### A MM #### [facility] [address] [place], [place] [id number] Dr. Jeffrey Thomas PROF 14(COMP METB)on 023 Albumin [Mass/Vol] 2.8 g/dL Critically low 3.4-5.0 [facility] Comment on above: Performed By: #### A MM #### [facility] [address] [place] [address] Dr. Jeffrey Thomas Albumin/Globulin [Mass ratio] 1.0 {ratio} Normal [facility] Comment on above: Performed By: #### A MM #### [facility] [address] [place] [address] Dr. Jeffrey Thomas ALP [Catalytic activity/Vol] 113 U/L Normal 46-116 [facility] Comment on above: Performed By: #### A MM #### [facility] [address] [place] [address] Dr. Jeffrey Thomas ALT [Catalytic activity/Vol] 14 U/L Normal 14-59 [facility] Comment on above: Performed By: #### A MM #### [facility] [address] [place] [address] Dr. Jeffrey Thomas Anion gap [Moles/Vol] 15.0 mmol/L Normal [facility] Comment on above: Performed By: #### A MM #### [facility] [address] [place] [address] Dr. Jeffrey Thomas AST [Catalytic activity/Vol] 18 U/L Normal 15-37 [facility] Comment on above: Performed By: #### A MM #### [facility] [address] [place] [address] Dr. Jeffrey Thomas Bilirubin [Mass/Vol] 0.5 mg/dL Normal 0.2-1.0 [facility] Comment on above: Performed By: #### A MM #### [facility] [address] [place] [address] Dr. Jeffrey Thomas Calcium [Mass/Vol] 8.3 mg/dL Critically low 8.5-10.1 [facility] Comment on above: Performed By: #### A MM #### [facility] [address] [place] [address] Dr. Jeffrey Thomas Chloride [Moles/Vol] 106 mmol/L Normal 98-107 [facility] Comment on above: Performed By: #### A MM #### [facility] [address] [address] [address] Jeffrey Thomas CO2 [Moles/Vol] 21.2 mmol/L Normal 21.0-32.0 [facility] Comment on above: Performed By: #### A MM #### [facility] [address] [address] [address] Jeffrey Thomas Creatinine [Mass/Vol] 1.02 mg/dL Normal 0.55-1.02 [facility] Comment on above: Performed By: #### A MM #### [facility] [address] [place] [address] Dr. Jeffrey Thomas EGFR-AF GREENLANDIC >60 Normal >=60 [facility] Comment on above: Performed By: #### A MM #### [facility] [address] [address] [address] Jeffrey Thomas EGFR-NON AF GRE[place] 54 mL/min/1.73m2 Critically low >=60 [facility] Comment on above: Performed By: #### A MM #### [facility] [address] [place] [address] Dr. Jeffrey Thomas Globulin (S) [Mass/Vol] 2.8 g/dL Normal [facility] Comment on above: Performed By: #### A MM #### [facility] [address] [place] [address] Dr. Jeffrey Thomas Glucose [Mass/Vol] 85 mg/dL Normal 74-106 [facility] Comment on above: Performed By: #### A MM #### [facility] [address] [address] [address] Jeffrey Thomas Potassium [Moles/Vol] 4.2 mmol/L Normal 3.5-5.1 [facility] Comment on above: Performed By: #### A MM #### [facility] [address] [place] [address] Dr. Jeffrey Thomas Protein [Mass/Vol] 5.6 g/dL Critically low 6.4-8.2 [facility] Comment on above: Performed By: #### A MM #### [facility] [address] [place] [address] Dr. Jeffrey Thomas Sodium [Moles/Vol] 138 mmol/L Normal 136-145 [facility] Comment on above: Performed By: #### A MM #### [facility] [address] [place] [address] Dr. Jeffrey Thomas Urea nitrogen [Mass/Vol] 17.0 mg/dL Normal 7.0-18.0 [facility] Comment on above: Performed By: #### A MM #### [facility] [address] [place] [address] Dr. Jeffrey Thomas Urea nitrogen/Creatinine [Mass ratio] 16.7 mg/mg Normal [facility] Comment on above: Performed By: #### A MM #### [facility] [address] [place] [address] Dr. Jeffrey Thomas BNPon 05-22-2022 Natriuretic peptide B (Bld) [Mass/Vol] 1738.0 pg/mL Critically high <=900.0 [facility] Comment on above: Performed By: #### C MP #### [facility] [address] [place] [address] Dr. Jeffrey Thomas CBC AUTO DIFFon 05-22-2022 BASO # 0.1 103/ul Normal 0.0-0.1 [facility] Comment on above: Performed By: #### C MP #### [facility] [address] [place] [address] Dr. Jeffrey Thomas Basophils/100 WBC (Bld) 1.0 % Normal 0.2-2.0 [facility] Comment on above: Performed By: #### C MP #### [facility] [address] [place] [address] Dr. Jeffrey Thomas EO # 0.1 103/ul Normal 0.0-0.7 [facility] Comment on above: Performed By: #### C MP #### [facility] [address] [place] [address] Dr. Jeffrey Thomas Eosinophils/100 WBC (Bld) 1.0 % Normal 0.9-7.0 [facility] Comment on above: Performed By: #### C MP #### [facility] [address] [place] [address] Dr. Jeffrey Thomas Erythrocyte distribution width (RBC) [Ratio] 17.2 % Critically high 11.0-15.0 [facility] Comment on above: Performed By: #### C MP #### [facility] [address] [place] [address] Dr. Jeffrey Thomas Hematocrit (Bld) [Volume fraction] 36.8 % Normal 36.0-48.0 [facility] Comment on above: Performed By: #### C MP #### [facility] [address] [place] [address] Dr. Jeffrey Thomas Hemoglobin (Bld) [Mass/Vol] 11.8 g/dL Critically low 12.0-16.0 [facility] Comment on above: Performed By: #### C MP #### [facility] [address] [place] [address] Dr. Jeffrey Thomas IG # 0.01 10e3/ul Normal 0.00-0.03 [facility] Comment on above: Performed By: #### C MP #### [facility] [address] [place] [address] Dr. Jeffrey Thomas IG % 0.2 % Normal 0.0-0.5 [facility] Comment on above: Performed By: #### C MP #### [facility] [address] [place] [address] Dr. Jeffrey Thomas LYMPH # 1.4 103/ul Normal 1.2-3.8 [facility] Comment on above: Performed By: #### C MP #### [facility] [address] [place] [address] Dr. Jeffrey Thomas Lymphocytes/100 WBC (Bld) 28.2 % Normal 20.5-60.0 [facility] Comment on above: Performed By: #### C MP #### [facility] [address] [place] [address] Dr. Jeffrey Thomas MANUAL DIFF REQ NO Normal [facility] Comment on above: Performed By: #### C MP #### [facility] [address] [place] [address] Dr. Jeffrey Thomas MCH (RBC) [Entitic mass] 29.0 pg Normal 26.7-34.0 [facility] Comment on above: Performed By: #### C MP #### [facility] [address] [place] [address] Dr. Jeffrey Thomas MCHC (RBC) [Mass/Vol] 32.1 g/dL Normal 29.9-35.2 [facility] Comment on above: Performed By: #### C MP #### [facility] [address] [place] [address] Dr. Jeffrey Thomas MCV (RBC) [Entitic vol] 90.4 fL Normal 81.0-99.0 [facility] Comment on above: Performed By: #### C MP #### [facility] [address] [place] [address] Dr. Jeffrey Thomas MONO # 0.4 103/ul Normal 0.3-0.8 [facility] Comment on above: Performed By: #### C MP #### [facility] [address] [place] [address] Dr. Jeffrey Thomas Monocytes/100 WBC (Bld) 7.3 % Normal 1.7-12.0 [facility] Comment on above: Performed By: #### C MP #### [facility] [address] [place] [address] Dr. Jeffrey Thomas NEUT # 3.0 103/ul Normal 1.4-6.5 [facility] Comment on above: Performed By: #### C MP #### [facility] [address] [place] [address] Dr. Jeffrey Thomas Neutrophils/100 WBC (Bld) 62.3 % Normal 43.0-75.0 [facility] Comment on above: Performed By: #### C MP #### [facility] [address] [place] [address] Dr. Jeffrey Thomas Platelet mean volume (Bld) [Entitic vol] 10.4 fL Normal 9.5-13.5 [facility] Comment on above: Performed By: #### C MP #### [facility] [address] [address] [address] Jeffrey Thomas PLT 254 103/ul Normal 150-450 [facility] Comment on above: Performed By: #### C MP #### [facility] [address] [address] [address] Jeffrey Thomas RBC 4.07 106/ul Critically low 4.20-5.40 [facility] Comment on above: Performed By: #### C MP #### [facility] [address] [address] [address] Jeffrey Thomas WBC 4.8 103/ul Normal 4.0-11.0 [facility] Comment on above: Performed By: #### C MP #### [facility] [address] [address] [address] ABD/PELVIS WO CONon [...] SALOME JOLLY Date: 2022-05-22 15:45 Normal [facility] CULTURE URINEon 05-22-2022 CULTURE URINE Culture Observations : LIGHT GROWTH OF MIXED GENITAL CANDIDA. NO POTENTIAL PATHOGENS SEEN. Normal [facility] Comment on above: Performed By: #### A MM #### [facility] [address] [place] [address] Dr. Jeffrey Thomas [facility]on 05-04 SARS-CoV-2 (COVID-19) RNA REBECCA+probe Ql (Unsp spec) Not detected Normal NOT DETECTED [facility] Comment on above: Result Comment: When diagnostic [...] for this test is supported by the Cope of Health and Human Service's declaration that [...] used). Performed By: #### C MP #### [facility] [address] [place] [address] Dr. Jeffrey Thomas ER URINE PROFILEon 3 Bilirubin Ql (U) Negative Normal NEGATIVE [facility] Comment on above: Performed By: #### C MP #### [facility] [address] [place] [address] Dr. Jeffrey Thomas Clarity (U) CLEAR Normal CLEAR [facility] Comment on above: Performed By: #### C MP #### [facility] [address] [place] [address] Dr. Jeffrey Thomas Color (U) YELLOW Normal YELLOW [facility] Comment on above: Performed By: #### C MP #### [facility] [address] [place] [address] Dr. Jeffrey Thomas ERUD A micrscopic examination will be performed if indicated. Normal [facility] Comment on above: Performed By: #### C MP #### [facility] [address] [place] [address] Dr. Jeffrey Thomas Glucose Ql (U) Negative Normal NEGATIVE [facility] Comment on above: Performed By: #### C MP #### [facility] [address] [place] [address] Dr. Jeffrey Thomas Hemoglobin Ql (U) Negative Normal NEGATIVE [facility] Comment on above: Performed By: #### C MP #### [facility] [address] [address] [address] Jeffrey Thomas Ketones Ql (U) Negative Normal NEGATIVE [facility] Comment on above: Performed By: #### C MP #### [facility] [address] [place] [address] Dr. Jeffrey Thomas LEUKOCYTES Negative Normal NEGATIVE [facility] Comment on above: Performed By: #### C MP #### [facility] [address] [address] [address] Jeffrey Thomas Nitrite Ql (U) Negative Normal NEGATIVE [facility] Comment on above: Performed By: #### C MP #### [facility] [address] [place] [address] Dr. Jeffrey Thomas pH (U) 5.0 [pH] Normal 5-9 [facility] Comment on above: Performed By: #### C MP #### [facility] [address] [place] [address] Dr. Jeffrey Thomas SPEC GRAVITY 1.020 Normal 1.005-<=1.[address] [place] [address] Comment on above: Performed By: #### C MP #### [facility] [address] [place] [address] Dr. Jeffrey Thomas UA PROTEIN Negative Normal NEGATIVE/ TRACE [facility] Comment on above: Performed By: #### C MP #### [facility] [address] [place] [address] Dr. Jeffrey Thomas UR MICRO IND NOT INDICATED Normal [facility] Comment on above: Performed By: #### C MP #### [facility] [address] [place] [address] Dr. Jeffrey Thomas Urobilinogen Qn (U) 0.2 {Bere'U}/dL Normal 0.2 - 1. 0 [facility] Comment on above: Performed By: #### C MP #### [facility] [address] [place] [address] Dr. Jeffrey Thomas INFLUENZA A AND B AGon 05-22 INFLUANEGH SEE BELOW Normal [facility] Comment on above: Result Comment: Nega tive for Flu A protein angiten. Infection due to Flu A cannot be ruled out. Flu A angiten in the sample may be below the detection limit of the test. Performed By: #### C MP #### [facility] [address] [place] [address] Dr. Jeffrey Thomas [facility] SEE BELOW Normal [facility] Comment on above: Result Comment: Nega tive for Flu B protein antigen. Infection due to Flu B cannot be ruled out. Flu B antigen in the sample may be below the detection limit of the test. Performed By: #### C MP #### [facility] [address] [place] [address] Dr. Jeffrey Thomas INFLUENZA A AG Negative Normal NEGATIVE SEE COMMENT [facility] Comment on above: Performed By: #### C MP #### [facility] [address] [place] [address] Dr. Jeffrey Thomas INFLUENZA B AG Negative Normal NEGATIVE SEE COMMENT [facility] Comment on above: Performed By: #### C MP #### [facility] [address] [place] [address] Dr. Jeffrey Thomas LACTATE/LACTIC ACIDon 2022 Lactate [Moles/Vol] 1.4 mmol/L Normal 0.4-1.9 [facility] Comment on above: Performed By: #### L ACT #### [facility] [address] [place] [address] Dr. Jeffrey Thomas Lactate [Moles/Vol] 1.1 mmol/L Normal 0.4-1.9 [facility] Comment on above: Performed By: #### T 4LC #### [facility] [address] [place] [address] Dr. Jeffrey Thomas LIPASEon 05-22-2022 Lipase [Catalytic activity/Vol] 21.0 U/L Critically low 73.0-393.0 [facility] Comment on above: Performed By: #### C MP #### [facility] [address] [place] [address] Dr. Jeffrey Thomas PROF 14(COMP METB)on 023 Albumin [Mass/Vol] 3.2 g/dL Critically low 3.4-5.0 [facility] Comment on above: Performed By: #### C MP #### [facility] [address] [address] [address] Jeffrey Thomas Albumin/Globulin [Mass ratio] 1.0 {ratio} Normal [facility] Comment on above: Performed By: #### C MP #### [facility] [address] [address] [address] Jeffrey Thomas ALP [Catalytic activity/Vol] 133 U/L Critically high 46-116 [facility] Comment on above: Performed By: #### C MP #### [facility] [address] [address] [address] Jeffrey Thomsa ALT [Catalytic activity/Vol] 14 U/L Normal 14-59 [facility] Comment on above: Performed By: #### C MP #### [facility] [address] [place] [address] Dr. Jeffrey Thomas Anion gap [Moles/Vol] 17.3 mmol/L Normal [facility] Comment on above: Performed By: #### C MP #### [facility] [address] [place] [address] Dr. Jeffrey Thomas AST [Catalytic activity/Vol] 18 U/L Normal 15-37 [facility] Comment on above: Performed By: #### C MP #### [facility] [address] [place] [address] Dr. Jeffrey Thomas Bilirubin [Mass/Vol] 0.5 mg/dL Normal 0.2-1.0 [facility] Comment on above: Performed By: #### C MP #### [facility] [address] [place] [address] Dr. Jeffrey Thomas Calcium [Mass/Vol] 9.0 mg/dL Normal 8.5-10.1 [facility] Comment on above: Performed By: #### C MP #### [facility] [address] [address] [address] Jeffrey Thomas Chloride [Moles/Vol] 107 mmol/L Normal 98-107 [facility] Comment on above: Performed By: #### C MP #### [facility] [address] [address] [address] Jeffrey Thomas CO2 [Moles/Vol] 20.0 mmol/L Critically low 21.0-32.0 [facility] Comment on above: Performed By: #### C MP #### [facility] [address] [address] [address] Jeffrey Thomas Creatinine [Mass/Vol] 1.05 mg/dL Critically high 0.55-1.02 [facility] Comment on above: Performed By: #### C MP #### [facility] [address] [place] [address] Dr. Jeffrey Thomas EGFR-AF GRE[place]IC >60 Normal >=60 [facility] Comment on above: Performed By: #### C MP #### [facility] [address] [place] [address] Dr. Jeffrey Thomas EGFR-NON AF [place] 53 mL/min/1.73m2 Critically low >=60 [facility] Comment on above: Performed By: #### C MP #### [facility] [address] [place] [address] Dr. Jeffrey Thomas Globulin (S) [Mass/Vol] 3.1 g/dL Normal [facility] Comment on above: Performed By: #### C MP #### [facility] [address] [place] [address] Dr. Jeffrey Thomas Glucose [Mass/Vol] 117 mg/dL Critically high 74-106 [facility] Comment on above: Performed By: #### C MP #### [facility] [address] [place] [address] Dr. Jeffrey Thomas Potassium [Moles/Vol] 4.3 mmol/L Normal 3.5-5.1 [facility] Comment on above: Performed By: #### C MP #### [facility] [address] [place] [address] Dr. Jeffrey Thomas Protein [Mass/Vol] 6.3 g/dL Critically low 6.4-8.2 [facility] Comment on above: Performed By: #### C MP #### [facility] [address] [address] [address] Jeffrey Thomas Sodium [Moles/Vol] 140 mmol/L Normal 136-[address] [facility] Comment on above: Performed By: #### C MP #### [facility] [address] [place] [address] Dr. Jeffrey Thomas Urea nitrogen [Mass/Vol] 20.0 mg/dL Critically high 7.0-18.0 [facility] Comment on above: Performed By: #### C MP #### [facility] [address] [place] [address] Dr. Jeffrey Thomas Urea nitrogen/Creatinine [Mass ratio] 19.0 mg/mg Normal [facility] Comment on above: Performed By: #### C MP #### [facility] [address] [place] [address] Dr. Jeffrey Thomas PROTIMEon 05-22-2022 INR Coag (PPP) [Relative time] 0.99 {INR} Normal [facility] Comment on above: Performed By: #### C MP #### [facility] [address] [place] [address] Dr. Jeffrey Thomas INR GUIDELINES SEE BELOW Normal [facility] Comment on above: Result Comment: MERARI RED INR: 2.0 - 3.0 CONDITIONS NOT LISTED BELOW 2.5 - 3.5 FOR PROSTHETIC HEART VALVE REPLACEMENT 2.5 - 3.5 RECURRENT THROMBOSIS Performed By: #### C MP #### [facility] [address] [place] [address] Dr. Jeffrey Thomas PT Coag (PPP) [Time] 10.5 s Normal 9.0-11.6 [facility] Comment on above: Performed By: #### C MP #### [facility] [address] [place] [address] Dr. Jeffrey Thomas PTTon 05-22-2022 aPTT Coag (Bld) [Time] 25.9 s Normal 22.3-36.2 [facility] Comment on above: Performed By: #### C MP #### [facility] [address] [place] [address] Dr. Jeffrey Thomas TROPONIN, HIGH SENSITIVITYon 05-22-2022 HSTROP 6.1 pg/mL Normal 4.0-51.3 [facility] Comment on above: Result Comment: CUT- OFF POINTS HAVE BEEN ESTABLISHED BASED ON THE FOURTH UNIVERSAL DEFINITIONS OF MYOCARDIAL INFARCTION. THE UPPER REFERENCE LIMIT (URL) OF TROPONIN, DEFINED THE 99TH PERCENTILE OF cTnI DISTRIBUTION IN A REFERENCE POPULATION, HAS BEEN CONFIRMED THE DECISION THRESHOLD FOR IN DIAGNOSIS. Performed By: #### C #### [facility] [address] [place], [place] [address] Dr. Jeffrey Thomas US SINGLE QUAD RT [...] by: ABDIAS WEN Date: 2022-05-22 17:32 Normal [facility] XR CHEST 1 Von 05-22-2022 XR CHEST [...] by: MELLY SEO Date: 2022-05-22 15:32 Normal [facility] PT Coag (PPP) [Time]on 05-04 INR Coag (PPP) [Relative time] 1.7 {INR} Normal <=5.0 [facility] Comment on above: Result Comment: The recommended therapeutic INR range for most cardiac indications is 2.0-3.0 For high intensity therapy (i.e. mechanical heart valves), the recommended range is 2.5-3.5 Performed By: #### 5 902-2 #### [facility] [address] [place] [address] Prothrombin timeon 3 PT Coag (PPP) [Time] 18.8 s High 11.9-14.7 [facility] Comment on above: Performed By: #### 5 902-2 #### [facility] [address] [place] [address] Basic metabolic 2000 panelon 05-03-2022 Anion gap [Moles/Vol] 8 mmol/L Normal 6-18 [facility] Comment on above: Performed By: #### 2 4321-2 #### [facility] [address] [place] [address] Calcium [Mass/Vol] 8.6 mg/dL Low 8.9-10.3 [facility] Comment on above: Performed By: #### 2 4321-2 #### [facility] [address] [place] [address] Chloride [Moles/Vol] 109 mmol/L High 98-107 [facility] Comment on above: Performed By: #### 2 4321-2 #### [facility] [address] [place] [address] CO2 [Moles/Vol] 25 mmol/L Normal 22-32 [facility] Comment on above: Performed By: #### 2 4321-2 #### [facility] [place] [facility] [address] [place] [address] Creatinine [Mass/Vol] 1.07 mg/dL Normal 0.60-1.30 [facility] Comment on above: Performed By: #### 2 4321-2 #### [facility] [place] [facility] [address] [place] [address] GFR/1.73 sq M.predicted among non-blacks MDRD (S/P/Bld) [Vol rate/Area] 58 mL/min/{1.73_m2} Low >=60 [facility] Comment on above: Result Comment: Effe ctive January 08, 2022, calculation based on the?Chronic Kidney Disease Epidemiology Collaboration (CKD-EPI) equation refit?without adjustment for race. Performed By: #### 2 4321-2 #### [facility] [place] [facility] [address] [place] [address] Glucose [Mass/Vol] 78 mg/dL Normal 70-99 [facility] Comment on above: Performed By: #### 2 4321-2 #### [facility] [place] [facility] [address] [place] [address] Potassium [Moles/Vol] 5.1 mmol/L Normal 3.6-5.1 [facility] Comment on above: Performed By: #### 2 4321-2 #### [facility] [place] [facility] [address] [place] [address] Sodium [Moles/Vol] 142 mmol/L Normal 136-145 [facility] Comment on above: Performed By: #### 2 4321-2 #### [facility] [place] [facility] [address] [place] [address] Urea nitrogen [Mass/Vol] 35 mg/dL High 8-20 [facility] Comment on above: Performed By: #### 2 4321-2 #### [facility] [place] [facility] [address] [place] [address] Urea nitrogen/Creatinine [Mass ratio] 32.7 mg/mg High 12.0-20.0 [facility] Comment on above: Performed By: #### 2 4321-2 #### [facility] [place] [address] [place] [address] Hemogram and platelets WO di fferential panel (Bld)on 05-03-2022 Erythrocyte distribution width (RBC) [Ratio] 16.4 % High 11.0-14.8 [facility] Comment on above: Performed By: #### 2 4321-2 #### [facility] [place] [facility] [address] [place] [address] Hematocrit (Bld) [Volume fraction] 33.4 % Low 34.3-47.9 [facility] Comment on above: Performed By: #### 2 4321-2 #### [facility] [place] [address] [place] [address] Hemoglobin (Bld) [Mass/Vol] 10.0 g/dL Low 12.0-16.0 [facility] Comment on above: Performed By: #### 2 1-2 #### [facility] [place] [address] [place] [address] MCH 27.2 pcg Normal 27.0-34.0 [facility] Comment on above: Performed By: #### 2 4321-2 #### [facility] [place] [address] [place] [address] MCHC (RBC) [Mass/Vol] 29.9 g/dL Low 30.8-35.3 [facility] Comment on above: Performed By: #### 2 1-2 #### [facility] [place] [address] [place] [address] MCV (RBC) [Entitic vol] 91.0 fL Normal 80.0-97.0 [facility] Comment on above: Performed By: #### 2 4321-2 #### [facility] [place] [facility] [address] [place] [address] Platelet mean volume (Bld) [Entitic vol] 11.6 fL Normal 6.2-12.1 [facility] Comment on above: Performed By: #### 2 4321-2 #### [facility] [place] [facility] [address] [place] [address] Platelets (Bld) [#/Vol] 283 10*3/uL Normal 142-424 [facility] Comment on above: Performed By: #### 2 4321-2 #### [facility] [place] [facility] [address] [place] [address] RBC (Bld) [#/Vol] 3.67 10*6/uL Low 3.74-5.34 [facility] Comment on above: Performed By: #### 2 4321-2 #### [facility] [place] [address] [place] [address] WBC (Bld) [#/Vol] 5.5 10*3/uL Normal 4.6-10.2 [facility] Comment on above: Performed By: #### 2 4321-2 #### [facility] [place] [facility] [address] [place] [address] PT Coag (PPP) [Time]on 05-03 INR Coag (PPP) [Relative time] 1.6 {INR} Normal <=5.0 [facility] Comment on above: Result Comment: The recommended therapeutic INR range for most cardiac indications is 2.0-3.0 For high intensity therapy (i.e. mechanical heart valves), the recommended range is 2.5-3.5 Performed By: #### 5 902-2 #### [facility] [place] [facility] [address] [place] [address] Prothrombin timeon PT Coag (PPP) [Time] 17.7 s High 11.9-14.7 [facility] Comment on above: Performed By: #### 5 902-2 #### [facility] [place] [facility] [address] [place] [address] Nuclear IgG IA Ql (S)on 04-04 Bacteria identified Cx Nom (U) 1 ORGANISM 202 Abnormal >533117 CFU/mL Escherichia coli The organism value for [...] Islt <=20 ug/ml Susceptible Invalid Interpretation Code [facility] Comment on above: Performed By: #### 2 4321-2 #### [facility] [address] [place] [address] Bacteria, Urine Many Abnormal None [facility] Comment on above: Performed By: #### 2 4321-2 #### [facility] [place] [facility] [address] [place] [address] Bilirubin, Urine Negative Normal Negative [facility] Comment on above: Performed By: #### 2 4321-2 #### [facility] [address] [place] [address] Blood, Urine 3+ Abnormal Negative [facility] Comment on above: Performed By: #### 2 4321-2 #### [facility] [place] [facility] [address] [place] [address] Clarity (U) Slightly Cloudy Abnormal Clear [facility] Comment on above: Performed By: #### 2 4321-2 #### [facility] [place] [facility] [address] [place] [address] Color (U) Renata Abnormal Yellow [facility] Comment on above: Performed By: #### 2 4321-2 #### [facility] [place] [facility] [address] [place] [address] Glucose Ql (U) Normal Normal Normal [facility] Comment on above: Performed By: #### 2 4321-2 #### [facility] [place] [facility] [address] [place] [address] Ketones Ql (U) Negative Normal Negative [facility] Comment on above: Performed By: #### 2 4321-2 #### [facility] [place] [facility] [address] [place] [address] Leukocytes, Urine 250 WBCs/mcL Abnormal Negative [facility] Comment on above: Performed By: #### 2 4321-2 #### [facility] [place] [facility] [address] [place] [address] Mucus, UA Rare Abnormal None [facility] Comment on above: Performed By: #### 2 4321-2 #### [facility] [place] [address] [place] [address] Nitrite, Urine Negative Normal Negative [facility] Comment on above: Performed By: #### 2 4321-2 #### [facility] [place] [facility] [address] [place] [address] pH (U) 6.0 [pH] Normal 5.0-8.0 [facility] Comment on above: Performed By: #### 2 4321-2 #### [facility] [place] [facility] [address] [place] [address] Protein (U) [Mass/Vol] 30 mg/dL Abnormal Negative [facility] Comment on above: Performed By: #### 2 4321-2 #### [facility] [place] [facility] [address] [place] [address] RBC LM.HPF (Urine sed) [#/Area] 362 /[HPF] High 0-5 [facility] Comment on above: Performed By: #### 2 4321-2 #### [facility] [place] [facility] [address] [place] [address] Specific [place] Urine 1.012 Normal 1.002-1.030 [facility] Comment on above: Performed By: #### 2 4321-2 #### [facility] [place] [facility] [address] [place] [address] Squamous Epithelial, Urine Rare Abnormal None [facility] Comment on above: Performed By: #### 2 4321-2 #### [facility] [place] [facility] [address] [place] [address] Urobilinogen, Urine Normal Normal Normal [facility] Comment on above: Performed By: #### 2 4321-2 #### [facility] [place] [facility] [address] [place] [address] WBC LM.HPF (Urine sed) [#/Area] 47 /[HPF] High 0-5 [facility] Comment on above: Performed By: #### 2 4321-2 #### [facility] [place] [facility] [address] [place] [address] PT Coag (PPP) [Time]on 05-02 INR Coag (PPP) [Relative time] 1.4 {INR} Normal <=5.0 [facility] Comment on above: Result Comment: The recommended therapeutic INR range for most cardiac indications is 2.0-3.0 For high intensity therapy (i.e. mechanical heart valves), the recommended range is 2.5-3.5 Performed By: #### 5 902-2 #### [facility] [place] [facility] [address] [place] [address] Prothrombin timeon 3 PT Coag (PPP) [Time] 15.9 s High 11.9-14.7 [facility] Comment on above: Performed By: #### 5 902-2 #### [facility] [place] [facility] [address] [place] [address] Basic metabolic 2000 panelon 05-01-2022 Anion gap [Moles/Vol] 8 mmol/L Normal 6-18 [facility] Comment on above: Performed By: #### 5 902-2 #### [facility] [place] [facility] [address] [place] [address] Calcium [Mass/Vol] 8.6 mg/dL Low 8.9-10.3 [facility] Comment on above: Performed By: #### 5 902-2 #### [facility] [place] [facility] [address] [place] [address] Chloride [Moles/Vol] 108 mmol/L High 98-107 [facility] Comment on above: Performed By: #### 5 902-2 #### [facility] [place] [facility] [address] [place] [address] CO2 [Moles/Vol] 25 mmol/L Normal 22-32 [facility] Comment on above: Performed By: #### 5 902-2 #### [facility] [place] [facility] [address] [place] [address] Creatinine [Mass/Vol] 0.97 mg/dL Normal 0.60-1.30 [facility] Comment on above: Performed By: #### 5 902-2 #### [facility] [place] [facility] [address] [place] [address] GFR/1.73 sq M.predicted among non-blacks MDRD (S/P/Bld) [Vol rate/Area] 65 mL/min/{1.73_m2} Normal >=60 [facility] Comment on above: Result Comment: Effe ctive January 08, 2022, calculation based on the?Chronic Kidney Disease Epidemiology Collaboration (CKD-EPI) equation refit?without adjustment for race. Performed By: #### 5 902-2 #### [facility] [place] [facility] [address] [place] [address] Glucose [Mass/Vol] 82 mg/dL Normal 70-99 [facility] Comment on above: Performed By: #### 5 902-2 #### [facility] [place] [facility] [address] [place] [address] Potassium [Moles/Vol] 4.5 mmol/L Normal 3.6-5.1 [facility] Comment on above: Performed By: #### 5 902-2 #### [facility] [place] [facility] [address] [place] [address] Sodium [Moles/Vol] 141 mmol/L Normal 136-145 [facility] Comment on above: Performed By: #### 902-2 #### [facility] [place] [facility] [address] [place] [address]44 Urea nitrogen [Mass/Vol] 34 mg/dL High 8-20 [facility] Comment on above: Performed By: #### 5 902-2 #### [facility] [place] [facility] [address] [place] [address] Urea nitrogen/Creatinine [Mass ratio] 35.1 mg/mg High 12.0-20.0 [facility] Comment on above: Performed By: #### 902-2 #### [facility] [place] [facility] [address] [place] [address] Hemogram and platelets WO di fferential panel (Bld)on 05-01-2022 Erythrocyte distribution width (RBC) [Ratio] 16.5 % High 11.0-14.8 [facility] Comment on above: Performed By: #### 2 4321-2 #### [facility] [place] [facility] [address] [place] [address] Hematocrit (Bld) [Volume fraction] 33.7 % Low 34.3-47.9 [facility] Comment on above: Performed By: #### 2 4321-2 #### [facility] [address] [place] [address] Hemoglobin (Bld) [Mass/Vol] 10.3 g/dL Low 12.0-16.0 [facility] Comment on above: Performed By: #### 2 1-2 #### [facility] [place] [facility] [address] [place] [address] MCH 28.1 pcg Normal 27.0-34.0 [facility] Comment on above: Performed By: #### 2 1-2 #### [facility] [place] [facility] [address] [place] [address] MCHC (RBC) [Mass/Vol] 30.6 g/dL Low 30.8-35.3 [facility] Comment on above: Performed By: #### 2 1-2 #### [facility] [place] [facility] [address] [place] [address]608 MCV (RBC) [Entitic vol] 92.1 fL Normal 80.0-97.0 [facility] Comment on above: Performed By: #### 2 1-2 #### [facility] [place] [facility] [address] [place] [address] Platelet mean volume (Bld) [Entitic vol] 11.6 fL Normal 6.2-12.1 [facility] Comment on above: Performed By: #### 2 1-2 #### [facility] [place] [facility] [address] [place] [address] Platelets (Bld) [#/Vol] 275 10*3/uL Normal 142-424 [facility] Comment on above: Performed By: #### 2 4321-2 #### [facility] [place] [facility] [address] [place] [address] RBC (Bld) [#/Vol] 3.66 10*6/uL Low 3.74-5.34 [facility] Comment on above: Performed By: #### 2 4321-2 #### [facility] [place] [facility] [address] [place] [address] WBC (Bld) [#/Vol] 5.9 10*3/uL Normal 4.6-10.2 [facility] Comment on above: Performed By: #### 2 4321-2 #### [facility] [address] [place] [address] PT Coag (PPP) [Time]on 05-01 INR Coag (PPP) [Relative time] 1.3 {INR} Normal <=5.0 [facility] Comment on above: Result Comment: The recommended therapeutic INR range for most cardiac indications is 2.0-3.0 For high intensity therapy (i.e. mechanical heart valves), the recommended range is 2.5-3.5 Performed By: #### 2 4321-2 #### [facility] ([facility]) [facility] [address] [place] [address] Prothrombin timeon 3 PT Coag (PPP) [Time] 15.6 s High 11.9-14.7 [facility] Comment on above: Performed By: #### 2 4321-2 #### [facility] [address] [place] [address]907 PT Coag (PPP) [Time]on 04-30 INR Coag (PPP) [Relative time] 1.4 {INR} Normal <=5.0 [facility] Comment on above: Result Comment: The recommended therapeutic INR range for most cardiac indications is 2.0-3.0 For high intensity therapy (i.e. mechanical heart valves), the recommended range is 2.5-3.5 Performed By: #### 5 902-2 #### [facility] [address] [place] [address] Prothrombin timeon 3 PT Coag (PPP) [Time] 16.0 s High 11.9-14.7 [facility] Comment on above: Performed By: #### 5 902-2 #### [facility] [address] [place] [address] [place] [address] Basic metabolic 2000 panelon 04-29-2022 Anion gap [Moles/Vol] 6 mmol/L Normal 6-18 [facility] Comment on above: Performed By: #### 5 902-2 #### [facility] [place] [facility] [address] [place] [address] Calcium [Mass/Vol] 8.7 mg/dL Low 8.9-10.3 [facility] Comment on above: Performed By: #### 5 902-2 #### [facility] [place] [facility] [address] [place] [address] Chloride [Moles/Vol] 103 mmol/L Normal 98-107 [facility] Comment on above: Performed By: #### 5 902-2 #### [facility] [place] [facility] [address] [place] [address] CO2 [Moles/Vol] 28 mmol/L Normal 22-32 [facility] Comment on above: Performed By: #### 5 902-2 #### [facility] [place] [facility] [address] [place] [address] Creatinine [Mass/Vol] 1.14 mg/dL Normal 0.60-1.30 [facility] Comment on above: Performed By: #### 5 902-2 #### [facility] [place] [facility] [address] [place] [address]37 GFR/1.73 sq M.predicted among non-blacks MDRD (S/P/Bld) [Vol rate/Area] 54 mL/min/{1.73_m2} Low >=60 [facility] Comment on above: Result Comment: Effe ctive January 08, 2022, calculation based on the?Chronic Kidney Disease Epidemiology Collaboration (CKD-EPI) equation refit?without adjustment for race. Performed By: #### 5 902-2 #### [facility] [place] [facility] [address] [place] [address] Glucose [Mass/Vol] 90 mg/dL Normal 70-99 [facility] Comment on above: Performed By: #### 5 902-2 #### [facility] [place] [facility] [address] [place] [address] Potassium [Moles/Vol] 4.8 mmol/L Normal 3.6-5.1 [facility] Comment on above: Performed By: #### 5 902-2 #### [facility] [place] [facility] [address] [place] [address]73 Sodium [Moles/Vol] 137 mmol/L Normal 136-145 [facility] Comment on above: Performed By: #### 5 902-2 #### [facility] [place] [facility] [address] [place] [address] 06729 Urea nitrogen [Mass/Vol] 35 mg/dL High 8-20 [facility] Comment on above: Performed By: #### 5 902-2 #### [facility] [place] [facility] [address] [place] [address] 83050 Urea nitrogen/Creatinine [Mass ratio] 30.7 mg/mg High 12.0-20.0 [facility] Comment on above: Performed By: #### 5 902-2 #### [facility] [place] [facility] [address] [place] [address] 55186 PT Coag (PPP) [Time]on 04-29 INR Coag (PPP) [Relative time] 1.4 {INR} Normal <=5.0 [facility] Comment on above: Result Comment: The recommended therapeutic INR range for most cardiac indications is 2.0-3.0 For high intensity therapy (i.e. mechanical heart valves), the recommended range is 2.5-3.5 Performed By: #### 5 902-2 #### [facility] [place] [facility] [address] [place] [address] 24300 Prothrombin timeon 3 PT Coag (PPP) [Time] 16.5 s High 11.9-14.7 [facility] Comment on above: Performed By: #### 5 902-2 #### [facility] [address] [place] [address] [id number] PT Coag (PPP) [Time]on 04-28 INR Coag (PPP) [Relative time] 1.3 {INR} Normal <=5.0 [facility] Comment on above: Result Comment: The recommended therapeutic INR range for most cardiac indications is 2.0-3.0 For high intensity therapy (i.e. mechanical heart valves), the recommended range is 2.5-3.5 Performed By: #### 5 902-2 #### [facility] [place] [facility] [address] [place] [address] [id number] Prothrombin timeon PT Coag (PPP) [Time] 15.6 s High 11.9-14.7 [facility] Comment on above: Performed By: #### 5 902-2 #### [facility] [address] [place] [address] [id number] Basic metabolic 2000 panelon 04-27-2022 Anion gap [Moles/Vol] 10 mmol/L Normal 6-18 [facility] Comment on above: Performed By: #### 2 4321-2 #### [facility] [address] [place] [address] [id number] Calcium [Mass/Vol] 8.4 mg/dL Low 8.9-10.3 [facility] Comment on above: Performed By: #### 2 4321-2 #### [facility] [place] [facility] [address] [place] [address] 23374 Chloride [Moles/Vol] 105 mmol/L Normal 98-107 [facility] Comment on above: Performed By: #### 2 4321-2 #### [facility] [address] [place] [address] CO2 [Moles/Vol] 22 mmol/L Normal 22-32 [facility] Comment on above: Performed By: #### 2 4321-2 #### [facility] [place] [facility] [address] [place] [address] 11747 Creatinine [Mass/Vol] 1.12 mg/dL Normal 0.60-1.30 [facility] Comment on above: Performed By: #### 2 4321-2 #### [facility] [place] [facility] [address] [place] [address] GFR/1.73 sq M.predicted among non-blacks MDRD (S/P/Bld) [Vol rate/Area] 55 mL/min/{1.73_m2} Low >=60 [facility] Comment on above: Result Comment: Effe ctive January 08, 2022, calculation based on the?Chronic Kidney Disease Epidemiology Collaboration (CKD-EPI) equation refit?without adjustment for race. Performed By: #### 2 4321-2 #### [facility] [address] [place] [address] Glucose [Mass/Vol] 82 mg/dL Normal 70-99 [facility] Comment on above: Performed By: #### 2 4321-2 #### [facility] [place] [facility] [address] [place] [address] Potassium [Moles/Vol] 5.6 mmol/L High 3.6-5.1 [facility] Comment on above: Performed By: #### 2 4321-2 #### [facility] [place] [facility] [address] [place] [address] Sodium [Moles/Vol] 137 mmol/L Normal 136-145 [facility] Comment on above: Performed By: #### 2 4321-2 #### [facility] [place] [facility] [address] [place] [address] Urea nitrogen [Mass/Vol] 35 mg/dL High 8-20 [facility] Comment on above: Performed By: #### 2 4321-2 #### [facility] [place] [facility] [address] [place] [address] Urea nitrogen/Creatinine [Mass ratio] 31.3 mg/mg High 12.0-20.0 [facility] Comment on above: Performed By: #### 2 4321-2 #### [facility] [place] [facility] [address] [place] [address] PT Coag (PPP) [Time]on 04-27 INR Coag (PPP) [Relative time] 1.2 {INR} Normal <=5.0 [facility] Comment on above: Result Comment: The recommended therapeutic INR range for most cardiac indications is 2.0-3.0 For high intensity therapy (i.e. mechanical heart valves), the recommended range is 2.5-3.5 Performed By: #### 5 902-2 #### [facility] [address] [place] [address] Prothrombin timeon 3 PT Coag (PPP) [Time] 14.5 s Normal 11.9-14.7 [facility] Comment on above: Performed By: #### 5 902-2 #### [facility] [address] [place] [address] 81693 PT Coag (PPP) [Time]on 04-26 INR Coag (PPP) [Relative time] 1.2 {INR} Normal <=5.0 [facility] Comment on above: Result Comment: The recommended therapeutic INR range for most cardiac indications is 2.0-3.0 For high intensity therapy (i.e. mechanical heart valves), the recommended range is 2.5-3.5 Performed By: #### 2 4321-2 #### [facility] [address] [place] [address] Prothrombin timeon 3 PT Coag (PPP) [Time] 14.3 s Normal 11.9-14.7 [facility] Comment on above: Performed By: #### 2 4321-2 #### [facility] ([facility]) [facility] [address] [place] [address] 72787 Basic metabolic 2000 panelon 04-25-2022 Anion gap [Moles/Vol] 7 mmol/L Normal 6-18 [facility] Comment on above: Performed By: #### 2 4321-2 #### [facility] [place] [facility] [address] [place] [address] Calcium [Mass/Vol] 8.5 mg/dL Low 8.9-10.3 [facility] Comment on above: Performed By: #### 2 4321-2 #### [facility] [place] [facility] [address] [place] [address] Chloride [Moles/Vol] 104 mmol/L Normal 98-107 [facility] Comment on above: Performed By: #### 2 4321-2 #### [facility] [place] [facility] [address] [place] [address] CO2 [Moles/Vol] 30 mmol/L Normal 22-32 [facility] Comment on above: Performed By: #### 2 4321-2 #### [facility] [place] [facility] [address] [place] [address] Creatinine [Mass/Vol] 1.00 mg/dL Normal 0.60-1.30 [facility] Comment on above: Performed By: #### 2 4321-2 #### [facility] [place] [facility] [address] [place] [address] GFR/1.73 sq M.predicted among non-blacks MDRD (S/P/Bld) [Vol rate/Area] 63 mL/min/{1.73_m2} Normal >=60 [facility] Comment on above: Result Comment: Effe ctive January 08, 2022, calculation based on the?Chronic Kidney Disease Epidemiology Collaboration (CKD-EPI) equation refit?without adjustment for race. Performed By: #### 2 4321-2 #### [facility] [place] [facility] [address] [place] [address] Glucose [Mass/Vol] 89 mg/dL Normal 70-99 [facility] Comment on above: Performed By: #### 2 4321-2 #### [facility] [place] [facility] [address] [place] [address] Potassium [Moles/Vol] 5.2 mmol/L High 3.6-5.1 [facility] Comment on above: Performed By: #### 2 4321-2 #### [facility] ([facility]) [facility] [address] [place] [address] Sodium [Moles/Vol] 141 mmol/L Normal 136-145 [facility] Comment on above: Performed By: #### 2 4321-2 #### [facility] ([facility]) [facility] [address] [place] [address]56 Urea nitrogen [Mass/Vol] 25 mg/dL High 8-20 [facility] Comment on above: Performed By: #### 2 4321-2 #### [facility] ([facility]) [facility] [address] [place] [address] 72858 Urea nitrogen/Creatinine [Mass ratio] 25.0 mg/mg High 12.0-20.0 [facility] Comment on above: Performed By: #### 2 4321-2 #### [facility] ([facility]) [facility] [address] [place] [address] 62464 PT Coag (PPP) [Time]on 04-25 INR Coag (PPP) [Relative time] 1.2 {INR} Normal <=5.0 [facility] Comment on above: Result Comment: The recommended therapeutic INR range for most cardiac indications is 2.0-3.0 For high intensity therapy (i.e. mechanical heart valves), the recommended range is 2.5-3.5 Performed By: #### 5 902-2 #### [facility] ([facility]) [facility] [address] [place] [address] 64384 Prothrombin timeon PT Coag (PPP) [Time] 14.0 s Normal 11.9-14.7 [facility] Comment on above: Performed By: #### 5 902-2 #### [facility] [address] [place] [address] 16387 Basic metabolic 2000 panelon 04-24-2022 Anion gap [Moles/Vol] 7 mmol/L Normal 6-18 [facility] Comment on above: Performed By: #### 2 4321-2 #### [facility] [place] [facility] [address] [place] [address] Calcium [Mass/Vol] 8.7 mg/dL Low 8.9-10.3 [facility] Comment on above: Performed By: #### 2 4321-2 #### [facility] [place] [facility] [address] [place] [address] Chloride [Moles/Vol] 106 mmol/L Normal 98-107 [facility] Comment on above: Performed By: #### 2 4321-2 #### [facility] [place] [facility] [address] [place] [address] 97669 CO2 [Moles/Vol] 28 mmol/L Normal 22-32 [facility] Comment on above: Performed By: #### 2 4321-2 #### [facility] [place] [facility] [address] [place] [address] Creatinine [Mass/Vol] 1.14 mg/dL Normal 0.60-1.30 [facility] Comment on above: Performed By: #### 2 4321-2 #### [facility] [place] [facility] [address] [place] [address] 70663 GFR/1.73 sq M.predicted among non-blacks MDRD (S/P/Bld) [Vol rate/Area] 54 mL/min/{1.73_m2} Low >=60 [facility] Comment on above: Result Comment: Effe ctive January 08, 2022, calculation based on the?Chronic Kidney Disease Epidemiology Collaboration (CKD-EPI) equation refit?without adjustment for race. Performed By: #### 2 4321-2 #### [facility] [place] [facility] [address] [place] [address] Glucose [Mass/Vol] 95 mg/dL Normal 70-99 [facility] Comment on above: Performed By: #### 2 4321-2 #### [facility] [place] [facility] [address] [place] [address] 21520 Potassium [Moles/Vol] 5.3 mmol/L High 3.6-5.1 [facility] Comment on above: Performed By: #### 2 4321-2 #### [facility] [place] [facility] [address] [place] [address] Sodium [Moles/Vol] 141 mmol/L Normal 136-145 [facility] Comment on above: Performed By: #### 2 4321-2 #### [facility] [place] [facility] [address] [place] [address] 57860 Urea nitrogen [Mass/Vol] 25 mg/dL High 8-20 [facility] Comment on above: Performed By: #### 2 4321-2 #### [facility] [place] [facility] [address] [place] [address] 58034 Urea nitrogen/Creatinine [Mass ratio] 21.9 mg/mg High 12.0-20.0 [facility] Comment on above: Performed By: #### 2 4321-2 #### [facility] [place] [facility] [address] [place] [address] 47718 Hemogram and platelets WO di fferential panel (Bld)on 04-24-2022 Erythrocyte distribution width (RBC) [Ratio] 16.9 % High 11.0-14.8 [facility] Comment on above: Performed By: #### 2 4317-0 #### [facility] [place] [facility] [address] [place] [address] 10053 Hematocrit (Bld) [Volume fraction] 35.3 % Normal 34.3-47.9 [facility] Comment on above: Performed By: #### 2 4317-0 #### [facility] [place] [facility] [address] [place] [address] 91104 Hemoglobin (Bld) [Mass/Vol] 10.9 g/dL Low 12.0-16.0 [facility] Comment on above: Performed By: #### 2 4317-0 #### [facility] [place] [facility] [address] [place] [address] 45876 Immature Platelet Fraction 14.0 % High 1.4-10.8 [facility] Comment on above: Performed By: #### 2 4317-0 #### [facility] [place] [facility] [address] [place] [address] MCH 28.9 pcg Normal 27.0-34.0 [facility] Comment on above: Performed By: #### 2 4317-0 #### [facility] [place] [facility] [address] [place] [address] 66588 MCHC (RBC) [Mass/Vol] 30.9 g/dL Normal 30.8-35.3 [facility] Comment on above: Performed By: #### 2 4317-0 #### [facility] [place] [facility] [address] [place] [address] 70461 MCV (RBC) [Entitic vol] 93.6 fL Normal 80.0-97.0 [facility] Comment on above: Performed By: #### 2 4317-0 #### [facility] [place] [facility] [address] [place] [address] 75531 Platelet mean volume (Bld) [Entitic vol] 12.9 fL High 6.2-12.1 [facility] Comment on above: Performed By: #### 2 4317-0 #### [facility] [place] [facility] [address] [place] [address] 25465 Platelets (Bld) [#/Vol] 160 10*3/uL Normal 142-424 [facility] Comment on above: Performed By: #### 2 4317-0 #### [facility] [place] [facility] [address] [place] [address] 18605 RBC (Bld) [#/Vol] 3.77 10*6/uL Normal 3.74-5.34 [facility] Comment on above: Performed By: #### 2 4317-0 #### [facility] [place] [facility] [address] [place] [address] 51652 WBC (Bld) [#/Vol] 7.7 10*3/uL Normal 4.6-10.2 [facility] Comment on above: Performed By: #### 2 4317-0 #### [facility] [place] [facility] [address] [place] [address] PT Coag (PPP) [Time]on 04-24 INR Coag (PPP) [Relative time] 1.1 {INR} Normal <=5.0 [facility] Comment on above: Result Comment: The recommended therapeutic INR range for most cardiac indications is 2.0-3.0 For high intensity therapy (i.e. mechanical heart valves), the recommended range is 2.5-3.5 Performed By: #### 2 4321-2 #### [facility] [place] [facility] [address] [place] [address] Prothrombin timeon PT Coag (PPP) [Time] 13.9 s Normal 11.9-14.7 [facility] Comment on above: Performed By: #### 2 4321-2 #### [facility] [place] [facility] [address] [place] [address] 58577 Basic metabolic 2000 panelon 04-23-2022 Anion gap [Moles/Vol] 8 mmol/L Normal 6-18 [facility] Comment on above: Performed By: #### 2 4321-2 #### [facility] [address] [place] [address] 13931 Calcium [Mass/Vol] 8.5 mg/dL Low 8.9-10.3 [facility] Comment on above: Performed By: #### 2 4321-2 #### [facility] [place] [facility] [address] [place] [address] 16364 Chloride [Moles/Vol] 106 mmol/L Normal 98-107 [facility] Comment on above: Performed By: #### 2 4321-2 #### [facility] [place] [facility] [address] [place] [address] CO2 [Moles/Vol] 28 mmol/L Normal 22-32 [facility] Comment on above: Performed By: #### 2 4321-2 #### [facility] [place] [facility] [address] [place] [address] Creatinine [Mass/Vol] 1.01 mg/dL Normal 0.60-1.30 [facility] Comment on above: Performed By: #### 2 4321-2 #### [facility] [place] [facility] [address] [place] [address] 00246 GFR/1.73 sq M.predicted among non-blacks MDRD (S/P/Bld) [Vol rate/Area] 62 mL/min/{1.73_m2} Normal >=60 [facility] Comment on above: Result Comment: Effe ctive January 08, 2022, calculation based on the?Chronic Kidney Disease Epidemiology Collaboration (CKD-EPI) equation refit?without adjustment for race. Performed By: #### 2 4321-2 #### [facility] [place] [facility] [address] [place] [address] 93581 Glucose [Mass/Vol] 108 mg/dL High 70-99 [facility] Comment on above: Performed By: #### 2 4321-2 #### [facility] [place] [facility] [address] [place] [address] 45710 Potassium [Moles/Vol] 5.0 mmol/L Normal 3.6-5.1 [facility] Comment on above: Performed By: #### 2 4321-2 #### [facility] [place] [facility] [address] [place] [address] 21738 Sodium [Moles/Vol] 142 mmol/L Normal 136-145 [facility] Comment on above: Performed By: #### 2 4321-2 #### [facility] [place] [facility] [address] [place] [address] 07121 Urea nitrogen [Mass/Vol] 23 mg/dL High 8-20 [facility] Comment on above: Performed By: #### 2 4321-2 #### [facility] [place] [facility] [address] [place] [address] 91116 Urea nitrogen/Creatinine [Mass ratio] 22.8 mg/mg High 12.0-20.0 [facility] Comment on above: Performed By: #### 2 4321-2 #### [facility] ([facility]) [facility] [address] [place] [address] 16244 Hemogram and platelets WO di fferential panel (Bld)on 04-23-2022 Basophils (Bld) [#/Vol] 0.06 10*3/uL Normal 0.00-0.20 [facility] Comment on above: Performed By: #### 2 4321-2 #### [facility] [address] [place] [address] 33813 Basophils/100 WBC (Bld) 0.7 % Normal 0.0-2.0 [facility] Comment on above: Performed By: #### 2 1-2 #### [facility] ([facility]) [facility] [address] [place] [address] 43962 Eosinophils (Bld) [#/Vol] 0.17 10*3/uL Normal 0.00-0.70 [facility] Comment on above: Performed By: #### 2 1-2 #### [facility] ([facility]) [facility] [address] [place] [address] 05716 Eosinophils/100 WBC (Bld) 2.1 % Normal 0.0-7.0 [facility] Comment on above: Performed By: #### 2 1-2 #### [facility] ([facility]) [facility] [address] [place] [address] 46324 Erythrocyte distribution width (RBC) [Ratio] 17.0 % High 11.0-14.8 [facility] Comment on above: Performed By: #### 2 1-2 #### [facility] ([facility]) [facility] [address] [place] [address] 02019 Hematocrit (Bld) [Volume fraction] 34.1 % Low 34.3-47.9 [facility] Comment on above: Performed By: #### 2 1-2 #### [facility] ([facility] [address] [place] [address] 67030 Hemoglobin (Bld) [Mass/Vol] 10.4 g/dL Low 12.0-16.0 [facility] Comment on above: Performed By: #### 2 4321-2 #### [facility] [place] [facility] [address] [place] [address] 82053 Immature granulocytes (Bld) [#/Vol] 0.02 10*3/uL Normal 0.00-0.10 [facility] Comment on above: Performed By: #### 2 4321-2 #### [facility] [place] [facility] [address] [place] [address] 36045 Immature granulocytes/100 WBC (Bld) 0.2 % Normal 0.0-1.2 [facility] Comment on above: Performed By: #### 2 1-2 #### [facility] [place] [facility] [address] [address] Lymphocytes (Bld) [#/Vol] 2.24 10*3/uL Normal 1.00-4.80 [facility] Comment on above: Performed By: #### 2 1-2 #### [facility] [place] [facility] [address] [address] Lymphocytes/100 WBC (Bld) 27.4 % Normal 17.9-49.6 [facility] Comment on above: Performed By: #### 2 1-2 #### [facility] [place] [facility] [address] [address] MCH 28.4 pcg Normal 27.0-34.0 [facility] Comment on above: Performed By: #### 2 4321-2 #### [facility] [place] [facility] [address] [address] MCHC (RBC) [Mass/Vol] 30.5 g/dL Low 30.8-35.3 [facility] Comment on above: Performed By: #### 2 4321-2 #### [facility] [place] [facility] [address] [place] [address] MCV (RBC) [Entitic vol] 93.2 fL Normal 80.0-97.0 [facility] Comment on above: Performed By: #### 2 4321-2 #### [facility] [place] [facility] [address] [place] [address] 11495 Monocytes (Bld) [#/Vol] 0.98 10*3/uL High 0.00-0.90 [facility] Comment on above: Performed By: #### 2 4321-2 #### [facility] [place] [facility] [address] [place] [address] 42056 Monocytes/100 WBC (Bld) 12.0 % Normal 0.0-12.0 [facility] Comment on above: Performed By: #### 2 1-2 #### [facility] [place] [facility] [address] [place] [address] 06968 Neutrophils Absolute 4.71 K/mcL Normal 1.80-7.70 [facility] Comment on above: Performed By: #### 2 1-2 #### [facility] [place] [facility] [address] [place] [address] 94833 Neutrophils/100 WBC (Bld) 57.6 % Normal 38.1-75.5 [facility] Comment on above: Performed By: #### 2 1-2 #### [facility] [place] [facility] [address] [place] [address] 67878 Platelet mean volume (Bld) [Entitic vol] 13.0 fL High 6.2-12.1 [facility] Comment on above: Performed By: #### 2 1-2 #### [facility] [place] [facility] [address] [place] [address] 75430 Platelets (Bld) [#/Vol] 175 10*3/uL Normal 142-424 [facility] Comment on above: Performed By: #### 2 1-2 #### [facility] [place] [facility] [address] [place] [address] 98845 RBC (Bld) [#/Vol] 3.66 10*6/uL Low 3.74-5.34 [facility] Comment on above: Performed By: #### 2 4321-2 #### [facility] ([facility]) [facility] [address] [place] [address] WBC (Bld) [#/Vol] 8.2 10*3/uL Normal 4.6-10.2 [facility] Comment on above: Performed By: #### 2 4321-2 #### [facility] ([facility]) [facility] [address] [place] [address] 73378 PT Coag (PPP) [Time]on 04-23 INR Coag (PPP) [Relative time] 1.1 {INR} Normal <=5.0 [facility] Comment on above: Result Comment: The recommended therapeutic INR range for most cardiac indications is 2.0-3.0 For high intensity therapy (i.e. mechanical heart valves), the recommended range is 2.5-3.5 Performed By: #### 2 4321-2 #### [facility] ([facility]) [facility] [address] [place] [address] 01081 Prothrombin timeon PT Coag (PPP) [Time] 13.4 s Normal 11.9-14.7 [facility] Comment on above: Performed By: #### 2 4321-2 #### [facility] ([facility]) [facility] [address] [place] [address] 15514 Basic metabolic 2000 panelon 04-22-2022 Anion gap [Moles/Vol] 6 mmol/L Normal 6-18 [facility] Comment on above: Performed By: #### 1 988-5 #### [facility] [address] [place] [address] Calcium [Mass/Vol] 8.3 mg/dL Low 8.9-10.3 [facility] Comment on above: Performed By: #### 1 988-5 #### [facility] [address] [place] [address] Chloride [Moles/Vol] 107 mmol/L Normal 98-107 [facility] Comment on above: Performed By: #### 1 988-5 #### [facility] [address] [place] [address] CO2 [Moles/Vol] 25 mmol/L Normal 22-32 [facility] Comment on above: Performed By: #### 1 988-5 #### [facility] [address] [place] [address] Creatinine [Mass/Vol] 1.06 mg/dL Normal 0.60-1.30 [facility] Comment on above: Performed By: #### 1 988-5 #### [facility] [address] [place] [address] GFR/1.73 sq M.predicted among non-blacks MDRD (S/P/Bld) [Vol rate/Area] 59 mL/min/{1.73_m2} Low >=60 [facility] Comment on above: Result Comment: Effe ctive January 08, 2022, calculation based on the?Chronic Kidney Disease Epidemiology Collaboration (CKD-EPI) equation refit?without adjustment for race. Performed By: #### 1 988-5 #### [facility] [address] [place] [address] Glucose [Mass/Vol] 104 mg/dL High 70-99 [facility] Comment on above: Performed By: #### 1 988-5 #### [facility] [address] [place] [address] Potassium [Moles/Vol] 4.7 mmol/L Normal 3.6-5.1 [facility] Comment on above: Performed By: #### 1 988-5 #### [facility] [address] [place] [address] Sodium [Moles/Vol] 138 mmol/L Normal 136-145 [facility] Comment on above: Performed By: #### 1 988-5 #### [facility] [address] [place] [address] Urea nitrogen [Mass/Vol] 24 mg/dL High 8-20 [facility] Comment on above: Performed By: #### 1 988-5 #### [facility] [address] [place] [address] Urea nitrogen/Creatinine [Mass ratio] 22.6 mg/mg High 12.0-20.0 [facility] Comment on above: Performed By: #### 1 988-5 #### [facility] [address] [place] [address] Anion gap [Moles/Vol] 6 mmol/L 6 - 18 [facility] Calcium [Mass/Vol] 8.3 mg/dL Low 8.9 - 10. 3 mg/dL [facility] Chloride [Moles/Vol] 107 mmol/L 98 - 10 7 mmol/L [facility] CO2 [Moles/Vol] 25 mmol/L 22 - 32 mmol/L [facility] Creatinine [Mass/Vol] 1.06 mg/dL 0.60 - 1.30 mg/dL [facility] GFR/1.73 sq M.predicted among non-blacks MDRD (S/P/Bld) [Vol rate/Area] 59 mL/min/{1.73_m2} Low - [facility] Comment on above: Effective January 08, 2022, calculation based on the Chronic Kidney Disease Epidemiology Collaboration (CKD-EPI) equation refit without adjustment for race. Glucose [Mass/Vol] 104 mg/dL High 70 - 99 mg/dL [facility] Interpretation and review of laboratory results Abnormal [facility] Potassium [Moles/Vol] 4.7 mmol/L 3.6 - 5.1 mmol/L [facility] Sodium [Moles/Vol] 138 mmol/L 136 - 145 mmol/L [facility] Urea nitrogen [Mass/Vol] 24 mg/dL High 8 - 20 mg/dL [facility] Urea nitrogen/Creatinine [Mass ratio] 22.6 mg/mg High 12.0 - 20.0 [facility] Hemogram and platelets WO di fferential panel (Bld)on 04-22-2022 Erythrocyte distribution width (RBC) [Ratio] 16.4 % High 11.0-14.8 [facility] Comment on above: Performed By: #### 1 988-5 #### [facility] [address] [place] [address] Hematocrit (Bld) [Volume fraction] 35.8 % Normal 34.3-47.9 [facility] Comment on above: Performed By: #### 1 988-5 #### [facility] [address] [place] [address] Hemoglobin (Bld) [Mass/Vol] 10.9 g/dL Low 12.0-16.0 [facility] Comment on above: Performed By: #### 1 988-5 #### [facility] [address] [place] [address] MCH 28.2 pcg Normal 27.0-34.0 [facility] Comment on above: Performed By: #### 1 988-5 #### [facility] [address] [place] [address] MCHC (RBC) [Mass/Vol] 30.4 g/dL Low 30.8-35.3 [facility] Comment on above: Performed By: #### 1 988-5 #### [facility] [address] [place] [address] MCV (RBC) [Entitic vol] 92.5 fL Normal 80.0-97.0 [facility] Comment on above: Performed By: #### 1 988-5 #### [facility] [address] [place] [address] Platelet mean volume (Bld) [Entitic vol] 12.4 fL High 6.2-12.1 [facility] Comment on above: Performed By: #### 1 988-5 #### [facility] [address] [place] [address] Platelets (Bld) [#/Vol] 158 10*3/uL Normal 142-424 [facility] Comment on above: Performed By: #### 1 988-5 #### [facility] [address] [place] [address] RBC (Bld) [#/Vol] 3.87 10*6/uL Normal 3.74-5.34 [facility] Comment on above: Performed By: #### 1 988-5 #### [facility] [address] [place] [address] WBC (Bld) [#/Vol] 9.0 10*3/uL Normal 4.6-10.2 [facility] Comment on above: Performed By: #### 1 988-5 #### [facility] [address] [place] [address] Erythrocyte distribution width (RBC) [Ratio] 16.4 % High 11.0 - 14.8 % [facility] Hematocrit (Bld) [Volume fraction] 35.8 % 34.3 - 47.9 % [facility] Hemoglobin (Bld) [Mass/Vol] 10.9 g/dL Low 12.0 - 16.0 g/dL [facility] Interpretation and review of laboratory results Abnormal [facility] MCH (RBC) [Entitic mass] 28.2 pg [facility] MCHC (RBC) [Mass/Vol] 30.4 g/dL Low 30.8 - 35.3 g/dL [facility] MCV (RBC) [Entitic vol] 92.5 fL [facility] Platelet mean volume (Bld) [Entitic vol] 12.4 fL High [facility] Platelets (Bld) [#/Vol] 158 10*3/uL [facility] RBC (Bld) [#/Vol] 3.87 10*6/uL [facility] WBC (Bld) [#/Vol] 9.0 10*3/uL [facility] PT Coag (PPP) [Time]on 04-22 INR Coag (PPP) [Relative time] 0.9 {INR} Normal <=5.0 [facility] Comment on above: Result Comment: The recommended therapeutic INR range for most cardiac indications is 2.0-3.0 For high intensity therapy (i.e. mechanical heart valves), the recommended range is 2.5-3.5 Performed By: #### 1 988-5 #### [facility] [address] [place] [address] INR Coag (PPP) [Relative time] 0.9 {INR} NINF - 5.0 [facility] Comment on above: The recommended ther apeutic INR range for most cardiac indications is 2.0-3.0 For high intensity therapy (i.e. mechanical heart valves), the recommended range is 2.5-3.5 Interpretation and review of laboratory results Normal [facility] PT Coag (Bld) [Time] 12.6 s [facility] Prothrombin timeon 3 PT Coag (PPP) [Time] 12.6 s Normal 11.9-14.7 [facility] Comment on above: Performed By: #### 1 988-5 #### [facility] [address] [place] [address] SARS-CoV-2 (COVID-19) RNA NA A+probe Ql (Resp)on 04-22-2022 Interpretation and review of laboratory results Normal [facility] SARS-CoV-2 (COVID-19) RdRp gene REBECCA+probe Ql (Resp) Not detected Not Detected [facility] SARS-CoV-2 RNA Resp Ql REBECCA+p robeon 04-22-2022 SARS-CoV-2 (COVID-19) RNA REBECCA+probe Ql (Resp) Not detected Normal Not Detected [facility] Comment on above: Performed By: #### 5 75-1 #### [facility] [address] [place] [address] Basic metabolic 2000 panelon 04-21-2022 Anion gap [Moles/Vol] 9 mmol/L Normal 6-18 [facility] Comment on above: Performed By: #### 1 988-5 #### [facility] [address] [place] [address] Calcium [Mass/Vol] 8.2 mg/dL Low 8.9-10.3 [facility] Comment on above: Performed By: #### 1 988-5 #### [facility] [address] [place] [address] Chloride [Moles/Vol] 108 mmol/L High 98-107 [facility] Comment on above: Performed By: #### 1 988-5 #### [facility] [address] [place] [address] CO2 [Moles/Vol] 22 mmol/L Normal 22-32 [facility] Comment on above: Performed By: #### 1 988-5 #### [facility] [address] [place] [address] Creatinine [Mass/Vol] 1.19 mg/dL Normal 0.60-1.30 [facility] Comment on above: Performed By: #### 1 988-5 #### [facility] [address] [place] [address] GFR/1.73 sq M.predicted among non-blacks MDRD (S/P/Bld) [Vol rate/Area] 51 mL/min/{1.73_m2} Low >=60 [facility] Comment on above: Result Comment: Effe ctive January 08, 2022, calculation based on the?Chronic Kidney Disease Epidemiology Collaboration (CKD-EPI) equation refit?without adjustment for race. Performed By: #### 1 988-5 #### [facility] [address] [place] [address] Glucose [Mass/Vol] 135 mg/dL High 70-99 [facility] Comment on above: Performed By: #### 1 988-5 #### [facility] [address] [facility] [place] [address] Potassium [Moles/Vol] 4.6 mmol/L Normal 3.6-5.1 [facility] Comment on above: Performed By: #### 1 988-5 #### [facility] [address] [place] [address] Sodium [Moles/Vol] 139 mmol/L Normal 136-145 [facility] Comment on above: Performed By: #### 1 988-5 #### [facility] [address] [place] [address] Urea nitrogen [Mass/Vol] 19 mg/dL Normal 8-20 [facility] Comment on above: Performed By: #### 1 988-5 #### [facility] [address] [place] [address] Urea nitrogen/Creatinine [Mass ratio] 16.0 mg/mg Normal 12.0-20.0 [facility] Comment on above: Performed By: #### 1 988-5 #### [facility] [address] [facility] [place] [address] Anion gap [Moles/Vol] 9 mmol/L 6 - 18 [facility] Calcium [Mass/Vol] 8.2 mg/dL Low 8.9 - 10. 3 mg/dL [facility] Chloride [Moles/Vol] 108 mmol/L High 98 - 10 7 mmol/L [facility] CO2 [Moles/Vol] 22 mmol/L 22 - 32 mmol/L [facility] Creatinine [Mass/Vol] 1.19 mg/dL 0.60 - 1.30 mg/dL [facility] GFR/1.73 sq M.predicted among non-blacks MDRD (S/P/Bld) [Vol rate/Area] 51 mL/min/{1.73_m2} Low - [facility] Comment on above: Effective January 08, 2022, calculation based on the Chronic Kidney Disease Epidemiology Collaboration (CKD-EPI) equation refit without adjustment for race. Glucose [Mass/Vol] 135 mg/dL High 70 - 99 mg/dL [facility] Interpretation and review of laboratory results Abnormal [facility] Potassium [Moles/Vol] 4.6 mmol/L 3.6 - 5.1 mmol/L [facility] Sodium [Moles/Vol] 139 mmol/L 136 - 145 mmol/L [facility] Urea nitrogen [Mass/Vol] 19 mg/dL 8 - 20 mg/dL [facility] Urea nitrogen/Creatinine [Mass ratio] 16.0 mg/mg 12.0 - 20.0 [facility] Hemogram and platelets WO di fferential panel (Bld)on 04-21-2022 Erythrocyte distribution width (RBC) [Ratio] 15.9 % High 11.0-14.8 [facility] Comment on above: Performed By: #### 1 988-5 #### [facility] [address] [place] [address] Hematocrit (Bld) [Volume fraction] 37.0 % Normal 34.3-47.9 [facility] Comment on above: Performed By: #### 1 988-5 #### [facility] [address] [place] [address] Hemoglobin (Bld) [Mass/Vol] 11.6 g/dL Low 12.0-16.0 [facility] Comment on above: Performed By: #### 1 988-5 #### [facility] [address] [place] [address] MCH 28.2 pcg Normal 27.0-34.0 [facility] Comment on above: Performed By: #### 1 988-5 #### [facility] [address] [place] [address] MCHC (RBC) [Mass/Vol] 31.4 g/dL Normal 30.8-35.3 [facility] Comment on above: Performed By: #### 1 988-5 #### [facility] [address] [place] [address] MCV (RBC) [Entitic vol] 90.0 fL Normal 80.0-97.0 [facility] Comment on above: Performed By: #### 1 988-5 #### [facility] [address] [place] [address] Platelet mean volume (Bld) [Entitic vol] 12.3 fL High 6.2-12.1 [facility] Comment on above: Performed By: #### 1 988-5 #### [facility] [address] [place] [address] Platelets (Bld) [#/Vol] 220 10*3/uL Normal 142-424 [facility] Comment on above: Performed By: #### 1 988-5 #### [facility] [address] [place] [address] RBC (Bld) [#/Vol] 4.11 10*6/uL Normal 3.74-5.34 [facility] Comment on above: Performed By: #### 1 988-5 #### [facility] [address] [place] [address] WBC (Bld) [#/Vol] 13.5 10*3/uL High 4.6-10.2 [facility] Comment on above: Performed By: #### 1 988-5 #### [facility] [address] [place] [address] Erythrocyte distribution width (RBC) [Ratio] 15.9 % High 11.0 - 14.8 % [facility] Hematocrit (Bld) [Volume fraction] 37.0 % 34.3 - 47.9 % [facility] Hemoglobin (Bld) [Mass/Vol] 11.6 g/dL Low 12.0 - 16.0 g/dL [facility] Interpretation and review of laboratory results Abnormal [facility] MCH (RBC) [Entitic mass] 28.2 pg [facility] MCHC (RBC) [Mass/Vol] 31.4 g/dL 30.8 - 35.3 g/dL [facility] MCV (RBC) [Entitic vol] 90.0 fL [facility] Platelet mean volume (Bld) [Entitic vol] 12.3 fL High [facility] th Platelets (Bld) [#/Vol] 220 10*3/uL [facility] RBC (Bld) [#/Vol] 4.11 10*6/uL [facility] WBC (Bld) [#/Vol] 13.5 10*3/uL High [facility] Pathology studyOrdered By: Valerie Segura on 04-21-2022 Citation Rick (Reference lab test) y7qnzHJbALWpxDVwPJNcN QttixYjIDDvxKLdJ1Paed syULmbPG1xOL9ksWwqmHT laHAnIOJaEzFkj1tdj896 hWNax8hxIFCGmzxjrHz3z 7jwTCFEGMvwMLGFNZp7lJ paA09fn9N7MkkrZ5eqIKD kVCpeqsRwnnY3MDBitIIz WDg2CPMijDChpmScZuEiS GIiwQQkjVE8HAWjBE9hax bxNIttVBygOSOktvV1JUQ cnPHsX7BdQXKuNI0utqof LZU1QRufGLIrBIL8BlSzX GBwr0Itvwr4GlJhyHDqSX xwbGFpblxpXGYxXGZzMTh lC2ZaUDVaYRK8JHTwzkik YHglE34elY7bJL97GCtxd wAfEHJcd3YzMHCsVTQxTL dpZDVfywPmAIxdwF3an4l 4ARqsGj5sXYGnvvkjTVR8 FoHiLX75ExfdpWSwVQMPr mUsIENvbHVtYnVzLCBPaG ktKJLoVuW1ZdBKqTCrr6Z ik5BaWfEbmJUdnV2ruDeq obV6WKCnsGGqTr0qbVCdR lxwYXJ9 [facility] Work Phone: Microscopic description Rick (Endomyocardium) h5wzzAJiDHOqqLHOMQHcV NEnCP5akIhnwTs8kGzzSD SewgA7cZSgJGpok1cmAME 8v4rsvlQZBnalJIHuZG9g XUvoDXPuYP2gUjInHLPzW mYyXHBhcGVydzEyMjQwXH XlcKOszUP3VFBpTQ0fube qXYdyPQmgABNgmmH8YGCn lRKrS6TmWFKlNB1avzllY UN3WPPLOtdqCd3glTIosX ANCntcZjFcZmNoYXJzZXQ zRYYufObfQPDcKYd5yT0Z o6igFdixV1jjkwKciKMzW n9aeFDNBLhuMVQOILn4hK 4AOYRyB0LbBC9Bd5gkCIG qgCUfHKW2IJyua8maIAet KNQ2JZZoIBEjORPzMY2EM mBvCMTiUgI9MhZ7GoZ0TT q5GZHFJCKuIZl1UqpbVFx 9UDa7LUobdddqQZb0VZXf FEuaaNZpWO6hnSuaGhjbe Zcnr0ZveUYwXLTmGLqxnT QgNTEwMDIgXFxkYiBPVlI aFePqWUj8RBjgZPVxEFt3 SChoE7YHAOWaBIT7VoAdN RBqXbD1WTe1SZGEGa7cFf G2TyWdFKX9OeN8QNKeTFB cXHQgMiBcXHNzIDMgXFxm mNCmXH3dwAsxKGPzFF4NA HBsYWluXGYxXGZzMjAgQS 7tU95fJUnbOIUluKzgAuR tQSYooCFdeHChhDYrz3E5 tIDcLCx0fUArt1B7pVvfM GluZmlsdHJhdGVzOlxwYX IgDQpccGFyZCANClxwbGF pblxmMVxmczIwXHBsYWlu XEj6moRrWAAsTbPfXYUkK 80zq4REt8UuGN7YWBe4dh TjgpwbuS2nDPOfeuFiBLu cZjFcZnMyMCBSZWNlaXZl FCHkqvEkw6LhOFfxmmMpP BWdkWFbKHyhrZyrhSX8rS IlhKAiDH0tZCCiMDNtKDB 8nVGwz1L2OHHthmc2URVa yBvhrqGceB2upA7trTBaS yBpbmZpbHRyYXRlcywgbG VmdCBrbmVlIiBpcyBhIDM aK02sCMyzhkMfKCGvHW1j JJL3x9l4YRYzsp8punO1Y ADnFvYdQ8BjtMudIHhxxj 96qoW7iIHhbFNzGCGYfCI sw4SuL6thVJ3acPPhgbZn izMuBL66AHYjwyEemLPcb JBxyOB6RLMvxN3iRekqB2 sgQTEuXHBhciANClxwYXI rQQlwa7AuEQzwxGwhZLAy BdUmKBewjxu9DC0TYLFmC FxlcGljWHNhMCANClxlcG qyDkIwsSLuRcQ0GIIyvBK jFAX3CK4knPsdPWVkI2Ni H5NsenR4MSMlnoUBZtbtO uvjaiAmXY0GzB== [facility] [employer] Work Phone: Pathology report final diagnosis Narrative o8fwsJDbXSUsbJDiMFRvZ KajznToGSUteHJoZ9Ffjw uuHGasYV6iQO0wxDwadAQ hqBSmJWKuMtNhk4hkr041 eXKfr9dnRJUWdvtjdUc1u LjaC03ue5U8FudvU8wuAE QwXGdyZWVuMFxibHVlMDt 9XHBhcGVydzEyMjQwXHBh tUBhaWN4ZXNwDC6txgypN ClaCRzeUYJupvD8QCFazI OxN1RbILElYN2khtbgJWK 3VGsfWURoATV0NcDvRERe x2Zwfzy8LwLukVk8w8kjC EAeHSHzuHwzs0pyEWX2LU HmgXEqB0ycaH0bKRQwQQ3 ulrhmt0raVLstGSobBWDb gFQ6rcU8UVYtrOQfI1Rhe Q3lCWBjDOEhdmEzbRceZh I5COixxDUesdujUwDvT61 lgAT4mIJcaDIqSVaoBvWf H7maBSRbiwznfHWdBUFnM MNAqVpbUH2sjbZvEYPxAz zmBOhfRvyeiP4hxBxugf9 ccGFyICAgLSBOZWdhdGl2 OFVuw5Lwp2crfluuqQBif qYdiRDkaGRns3A7nSAtPW q5mZSat3X9kKviDEwbYqm cpB4vmXdgpw8ctHPolC== [employer] Phone: [employer] Phone: Bacteria Spec Anaerobe Culto n 04-20-2022 Bacteria identified Anaer cx Nom (Unsp spec) Culture, Anaerobic Status = F No anaerobes grown after 4 days. Normal [facility] Comment on above: Performed By: #### 3 4556-1 #### [facility] [address] [place] [address] Performed By: #### 5 75-1 #### [facility] [address] [place] [address] Bacteria identified Anaer cx Nom (Unsp spec) Culture, Anaerobic Status = F No anaerobes grown after 4 days. Normal [facility] Comment on above: Performed By: #### 3 4556-1 #### [facility] [address] [place] [address] Bacteria Spec BFld Culton Bacteria identified Sterile [...] to a previously preliminary verified report. Normal [facility] Comment on above: Performed By: #### 6 36-1 #### [facility] ([facility] [address] [place] [address] Bacteria Tiss Culton 023 Bacteria identified Cx [...] to a previously preliminary verified report. Normal [facility] Comment on above: Performed By: #### 3 4556-1 #### [facility] [address] [place] [address] Performed By: #### 5 75-1 #### [facility] ([facility] [address] [place] [address] Cell count panel (Body fld)o n 04-20-2022 Fluid Eosinophils 4.0 % Normal [facility] Comment on above: Performed By: #### 1 988-5 #### [facility] [address] [place] [address] Fluid Lining Cells 1.0 % Normal [facility] Comment on above: Performed By: #### 1 988-5 #### [facility] [address] [place] [address] Fluid Lymphocytes 46.0 % Normal [facility] Comment on above: Performed By: #### 1 988-5 #### [facility] [address] [place] [address] Fluid Monocytes/Macrophages 24.0 % Normal [facility] Comment on above: Performed By: #### 1 988-5 #### [facility] [address] [place] [address] Fluid Neutrophils 25.0 % Normal [facility] Comment on above: Performed By: #### 1 988-5 #### [facility] [address] [place] [address] Clarity (Body fld) Hazy [facility] Color (Body fld) [place] [employer] RBC Auto (Body fld) [#/Vol] 59301 /mm3 [employer] Comment on above: The reference range and other method performance specifications have not been established for this fluid specimen. The test result should be integrated into the clinical context for interpretation. Specimen source Nom (Body fld) Synovial [employer] WBC (Body fld) [#/Vol] 111 /mm3 [employer] Comment on above: The reference range and other method performance specifications have not been established for this fluid specimen. The test result should be integrated into the clinical context for interpretation. [employer] Differential panel (Body fld )Ordered By: Valarie Delacruz on 04-20-2022 Eosinophils/100 WBC Manual cnt (Body fld) 4.0 % [facility] Fluid Lining Cells 1.0 % [facility] Lymphocytes/100 WBC Manual cnt (Body fld) 46.0 % [facility] Monocytes+Macrophages /100 WBC (Body fld) 24.0 % [facility] Neutrophils/100 WBC (Body fld) 25.0 % [facility] Fungus Skin Culton Fungus identified Cx Nom (Skin) Culture, Fungus Status = F No growth at 4 weeks Normal [facility] Comment on above: Performed By: #### 5 75-1 #### [facility] [address] [place] [address] Performed By: #### 3 4556-1 #### [facility] [address] [place] [address] Fungus identified Cx Nom (Skin) Culture, Fungus Status = F No growth at 4 weeks Normal [facility] Comment on above: Performed By: #### 5 75-1 #### [facility] [address] [place] [address] Glucose Auto test strip (Bld ) [Mass/Vol]on 04-20-2022 Glucose [Mass/Vol] 135 mg/dL High 70-99 [facility] Comment on above: Performed By: #### 1 988-5 #### [facility] [address] [place] [address] Glucose [Mass/Vol] 135 mg/dL High 70 - 99 mg/dL [facility] Interpretation and review of laboratory results Abnormal [facility] Mycobacterium Spec Culton Mycobacterium sp identified Org specific cx Nom (Unsp spec) Culture AFB Status = F No growth at 8 weeks AFB Stain Status = F No acid fast bacilli seen Normal [facility] Comment on above: Performed By: #### 5 43-9 #### [facility] [address] [place] [address] Performed By: #### 3 4556-1 #### [facility] [address] [place] [address] Performed By: #### 5 75-1 #### [facility] [address] [place] [address] Mycobacterium sp identified Org specific cx Nom (Unsp spec) Culture AFB Status = F No growth at 8 weeks AFB Stain Status = F No acid fast bacilli seen Normal [facility] Comment on above: Performed By: #### 5 75-1 #### [facility] [address] [place] [address] No Panel InformationOrdered By: Hilary Albarran on 04-20-2022 [employer] PT Coag (PPP) [Time]on 04-20 aPTT Coag (Bld) [Time] 22.0 s Low 23.3-35.3 [facility] Comment on above: Performed By: #### 1 988-5 #### [facility] [address] [place] [address] PT Coag (PPP) [Time]Ordered By: Hilary Albarran on 04-20-2022 INR Coag (PPP) [Relative time] 1.0 {INR} NINF - 5.0 [facility] [employer] Comment on above: The recommended ther apeutic INR range for most cardiac indications is 2.0-3.0 For high intensity therapy (i.e. mechanical heart valves), the recommended range is 2.5-3.5 Interpretation and review of laboratory results Normal [employer] PT Coag (Bld) [Time] 13.4 s [facility] Pathology studyon 04-20-2022 Pathology study Soft tissue, left Blair: - Mild nonspecific inflammation. - Negative for significant perivascular lymphocytic inflammation. A. Knee, Left, Rule out perivascular lymphocytic infiltrates: Received in formalin labeled with patient name and rule out perivascular lymphocytic infiltrates, left knee is a 3 cm aggregate of dusky rogers-trujillo fibrocartilaginous tissue. The specimen is representatively submitted in block A1. (kimberlyw) The technical component was performed at [facility], [address] [place] [id number]. Microscopic examination was performed. Normal [facility] Comment on above: Performed By: #### 1 1526-1 #### [facility] [address] [place] [address] [facility] [address] [place] [address] XR KNEE 1-2 VIEWS LEFTon XR KNEE [...] Self Edit Transcribed Date: 04/20/2022 16:06 Normal [facility] XR Knee 1-2 Views Lefton FINDINGS/IMPRESSION: Status [...] By: Self Edit Transcribed Date: 04/20/2022 16:06 [employer] Radiology Study observation (narrative) [employer] XR Knee 1-2 Views LeftOrdere d By: Heriberto Saldana on 04-20-2022 [employer] Work Phone: aPTT Coag (Bld) [Time]on aPTT Coag (PPP) [Time] 22.0 s Low [employer] Interpretation and review of laboratory results Abnormal [employer] Covid-19 PCR (CVDTBH)on 04-02 SARS-CoV-2 (COVID-19) RNA REBECCA+probe Ql (Unsp spec) Not detected Normal NOT DETECTED [facility] Comment on above: Result Comment: When diagnostic [...] for this test is supported by the Cope of Health and Human Service's declaration that [...] be used). Performed By: #### C #### [facility] [address] [place] [address] Dr. Jeffrey Tohmas Bacteria Spec Anaerobe Culto n 04-05-2022 Bacteria identified Anaer cx Nom (Unsp spec) Culture, Anaerobic Status = F No anaerobes grown after 4 days. Normal [facility] Comment on above: Performed By: #### 5 75-1 #### [facility] [address] [place] [address] Bacteria Spec BFld Culton Bacteria identified Sterile [...] to a previously preliminary verified report. Normal [facility] [facility] Comment on above: Performed By: #### 5 75-1 #### [facility] ([facility]) [facility] [address] [place] [address] Blood type and Indirect anti body screen panel (Bld)on 04-05-2022 ABO group Nom (Bld) A Normal [facility] Comment on above: Performed By: #### 3 4532-2 #### [facility] [address] [place] [address] Rh Type Positive Normal [facility] Comment on above: Performed By: #### 3 4532-2 #### [facility] [address] [place] [address] CRP [Mass/Vol]on 04-05-2022 Anion gap [Moles/Vol] 9 mmol/L Normal 6-18 [facility] Comment on above: Performed By: #### 1 988-5 #### [facility] [address] [place] [address] Calcium [Mass/Vol] 9.4 mg/dL Normal 8.9-10.3 [facility] Comment on above: Performed By: #### 1 988-5 #### [facility] [address] [place] [address] Chloride [Moles/Vol] 105 mmol/L Normal 98-107 [facility] Comment on above: Performed By: #### 1 988-5 #### [facility] [address] [place] [address] CO2 [Moles/Vol] 24 mmol/L Normal 22-32 [facility] Comment on above: Performed By: #### 1 988-5 #### [facility] [address] [place] [address] Creatinine [Mass/Vol] 1.07 mg/dL Normal 0.60-1.30 [facility] Comment on above: Performed By: #### 1 988-5 #### [facility] [address] [place] [address] GFR/1.73 sq M.predicted among non-blacks MDRD (S/P/Bld) [Vol rate/Area] 58 mL/min/{1.73_m2} Low >=60 [facility] Comment on above: Result Comment: Effe ctive January 08, 2022, calculation based on the?Chronic Kidney Disease Epidemiology Collaboration (CKD-EPI) equation refit?without adjustment for race. Performed By: #### 1 988-5 #### [facility] [address] [place] [address] Glucose [Mass/Vol] 97 mg/dL Normal 70-99 [facility] Comment on above: Performed By: #### 1 988-5 #### [facility] [address] [facility] [place] [place] [address] Potassium [Moles/Vol] 4.9 mmol/L Normal 3.6-5.1 [facility] Comment on above: Performed By: #### 1 988-5 #### [facility] [address] [place] [address] Sodium [Moles/Vol] 138 mmol/L Normal 136-145 [facility] Comment on above: Performed By: #### 1 988-5 #### [facility] [address] [place] [address] Urea nitrogen [Mass/Vol] 22 mg/dL High 8-20 [facility] Comment on above: Performed By: #### 1 988-5 #### [facility] [address] [place] [address] Urea nitrogen/Creatinine [Mass ratio] 20.6 mg/mg High 12.0-20.0 [facility] Comment on above: Performed By: #### 1 988-5 #### [facility] [address] [place] [address] Cell count panel (Body fld)o n 04-05-2022 Fluid Eosinophils 3.0 % Normal [facility] Comment on above: Result Comment: Boy ected result: Previously reported as 6.0 % on 04/05/2022 at 1416 EST. Performed By: #### 3 4556-1 #### [facility] [address] [place] [address] Fluid Lymphocytes 34.0 % Normal [facility] Comment on above: Result Comment: Boy ected result: Previously reported as 43.0 % on 04/05/2022 at 1416 EST. Performed By: #### 3 4556-1 #### [facility] [address] [place] [address] Fluid Monocytes/Macrophages 23.0 % Normal [facility] Comment on above: Result Comment: Boy ected result: Previously reported as 9.0 % on 04/05/2022 at 1416 EST. Performed By: #### 3 4556-1 #### [facility] [address] [facility] [place] [address] Fluid Neutrophils 40.0 % Normal [facility] Comment on above: Result Comment: Boy ected result: Previously reported as 39.0 % on 04/05/2022 at 1416 EST. Performed By: #### 3 4556-1 #### [facility] [address] [place], [place] [address] [address] Fluid Other Cells Normal [facility] Comment on above: Result Comment: Lini ng cells Corrected result: Previously reported as 3.0 % on 04/05/2022 at 1416 EST. Performed By: #### 3 4556-1 #### [facility] [address] [place], [place] [address] [address] Fungus Skin Culton Fungus identified Cx Nom (Skin) Culture, Fungus Status = F No growth at 4 weeks Normal [facility] Comment on above: Performed By: #### 3 4556-1 #### [facility] [address] [facility] [place] [address] Hemogram and platelets WO di fferential panel (Bld)on 04-05-2022 Sed Rate 41 mm/hr High 0-20 [facility] Comment on above: Performed By: #### 5 75-1 #### [facility] ([facility] [address] [place] [address] Mycobacterium Spec Culton Mycobacterium sp identified Org specific cx Nom (Unsp spec) Culture AFB Status = F No growth at 8 weeks AFB Stain Status = F No acid fast bacilli seen Normal [facility] Comment on above: Performed By: #### 1 988-5 #### [facility] [address] [place] [address] Basic metabolic 2000 panelon 01-05-2022 Anion gap [Moles/Vol] 12 mmol/L [facility] Calcium [Mass/Vol] 9.1 mg/dL 8.9 - 10. 3 mg/dL [facility] Chloride [Moles/Vol] 103 mmol/L 98 - 10 7 mmol/L [facility] CO2 [Moles/Vol] 19 mmol/L Low 22 - 32 mmol/L [facility] Creatinine [Mass/Vol] 1.28 mg/dL 0.60 - 1.30 mg/dL [facility] GFR/1.73 sq M.predicted MDRD (S/P/Bld) [Vol rate/Area] 44 mL/min/{1.73_m2} Low >=60 mL/min/1.73m 2 [facility] Glucose [Mass/Vol] 99 mg/dL 70 - 99 mg/dL [facility] Interpretation and review of laboratory results Abnormal [facility] Potassium [Moles/Vol] 5.1 mmol/L 3.6 - 5.1 mmol/L [facility] Sodium [Moles/Vol] 134 mmol/L Low 136 - 145 mmol/L [facility] Urea nitrogen [Mass/Vol] 34 mg/dL High 8 - 20 mg/dL [facility] Urea nitrogen/Creatinine [Mass ratio] 26.6 mg/mg [facility] Hemogram and platelets WO di fferential panel (Bld)on 01-05-2022 Basophils (Bld) [#/Vol] 0.10 10*3/uL [employer] Basophils/100 WBC (Bld) 0.8 % 0.0 - 2.0 % [facility] Eosinophils (Bld) [#/Vol] 0.29 10*3/uL [employer] Eosinophils/100 WBC (Bld) 2.3 % 0.0 - 7.0 % [employer] Erythrocyte distribution width (RBC) [Ratio] 15.8 % High 11.0 - 14.8 % [employer] Hematocrit (Bld) [Volume fraction] 35.6 % 34.3 - 47.9 % [employer] Hemoglobin (Bld) [Mass/Vol] 10.7 g/dL Low 12.0 [...] volume (Bld) [Entitic vol] 11.8 fL [facility] th Platelets (Bld) [#/Vol] 194 10*3/uL [facility] RBC (Bld) [#/Vol] 3.39 10*6/uL Low [facility] WBC (Bld) [#/Vol] 12.7 10*3/uL High [...] 8.0 % 0.0 - 12.0 % [facility] Segmented neutrophils (Bld) [#/Vol] 9.02 10*3/uL High [facility] Segmented neutrophils/100 WBC (Bld) 71.0 % 38.1 - 75.5 % [facility] PT Coag (PPP) [Time]on 01-05 INR Coag (PPP) [Relative time] 1.0 {INR} <=5.0 [facility] Comment on above: The recommended ther apeutic INR range for most cardiac indications is 2.0-3.0 For high intensity therapy (i.e. mechanical heart valves), the recommended range is 2.5-3.5 Interpretation and review of laboratory results Normal [facility] PT Coag (Bld) [Time] 13.0 s [facility] Basic metabolic 2000 panelon 01-04-2022 Anion gap [Moles/Vol] 9 mmol/L [facility] Calcium [Mass/Vol] 8.9 mg/dL 8.9 - 10. 3 mg/dL [facility] Chloride [Moles/Vol] 103 mmol/L 98 - 10 7 mmol/L [facility] CO2 [Moles/Vol] 21 mmol/L Low 22 - 32 mmol/L [facility] Creatinine [Mass/Vol] 1.00 mg/dL 0.60 - 1.30 mg/dL [facility] GFR/1.73 sq M.predicted MDRD (S/P/Bld) [Vol rate/Area] 59 mL/min/{1.73_m2} Low >=60 mL/min/1.73m 2 [facility] Glucose [Mass/Vol] 129 mg/dL High 70 - 99 mg/dL [facility] Interpretation and review of laboratory results Abnormal [facility] Potassium [Moles/Vol] 5.0 mmol/L 3.6 - 5.1 mmol/L [facility] Sodium [Moles/Vol] 133 mmol/L Low 136 - 145 mmol/L [facility] Urea nitrogen [Mass/Vol] 26 mg/dL High 8 - 20 mg/dL [facility] Urea nitrogen/Creatinine [Mass ratio] 26.0 mg/mg High [facility] Hemogram and platelets WO di fferential panel [...] Health WBC (Bld) [#/Vol] 14.6 10*3/uL High [facility] Manual Differential panel (B ld)on 01-04-2022 Interpretation and review of laboratory results Abnormal [facility] Lymphocytes (Bld) [#/Vol] 2.77 10*3/uL [facility] Lymphocytes/100 WBC (Bld) 19.0 % 17.9 - 49.6 % [facility] Monocytes (Bld) [#/Vol] 1.31 10*3/uL High [facility] Monocytes/100 WBC (Bld) 9.0 % 0.0 - 12.0 % [facility] Segmented neutrophils (Bld) [#/Vol] 10.51 10*3/uL High [facility] Segmented neutrophils/100 WBC (Bld) 72.0 % 38.1 - 75.5 % [facility] PT Coag (PPP) [Time]Ordered By: Hilary Albarran on 01-04-2022 INR Coag (PPP) [Relative time] 0.9 {INR} <=5.0 [facility] Comment on above: The recommended ther apeutic INR range for most cardiac indications is 2.0-3.0 For high intensity therapy (i.e. mechanical heart valves), the recommended range is 2.5-3.5 Interpretation and review of laboratory results Normal [facility] PT Coag (Bld) [Time] 12.6 s [facility] [employer] Glucose Auto test strip (Bld ) [Mass/Vol]on 01-03-2022 Glucose [Mass/Vol] 144 mg/dL High 70 - 99 mg/dL [facility] Interpretation and review of laboratory results Abnormal [facility] Covid-19 PCR (CVDTBH)on SARS-CoV-2 (COVID-19) RNA REBECCA+probe Ql (Unsp spec) Not detected Normal NOT DETECTED [facility] Comment on above: Result Comment: When diagnostic [...] for this test is supported by the Line Closer of Health and Human Service's declaration that [...] used). Performed By: #### C MP #### [facility] [address] [place] [address] Dr. Jeffrey Thomas CBC AUTO DIFFon 12-14-2021 BASO # 0.1 103/ul Normal 0.0-0.1 [facility] Comment on above: Performed By: #### T 4LC #### [facility] [address] [place] [address] Dr. Jeffrey Thomas Basophils/100 WBC (Bld) 1.2 % Normal 0.2-2.0 [facility] Comment on above: Performed By: #### T 4LC #### [facility] [address] [place] [address] Dr. Jeffrey Thomas EO # 0.2 103/ul Normal 0.0-0.7 [facility] Comment on above: Performed By: #### T 4LC #### [facility] [address] [place] [address] Dr. Jeffrey Thomas Eosinophils/100 WBC (Bld) 3.2 % Normal 0.9-7.0 [facility] Comment on above: Performed By: #### T 4LC #### [facility] [address] [place] [address] Dr. Jeffrey Thomas Erythrocyte distribution width (RBC) [Ratio] 15.9 % Critically high 11.0-15.0 [facility] Comment on above: Performed By: #### T 4LC #### [facility] [address] [place] [address] Dr. Jeffrey Thomas Hematocrit (Bld) [Volume fraction] 35.1 % Critically low 36.0-48.0 [facility] Comment on above: Performed By: #### T 4LC #### [facility] [address] [place] [address] Dr. Jeffrey Thomas Hemoglobin (Bld) [Mass/Vol] 10.8 g/dL Critically low 12.0-16.0 [facility] Comment on above: Performed By: #### T 4LC #### [facility] [address] [place] [address] Dr. Jeffrey Thomas IG # 0.03 10e3/ul Normal 0.00-0.03 [facility] Comment on above: Performed By: #### T 4LC #### [facility] [address] [place] [address] Dr. Jeffrey Thomas IG % 0.4 % Normal 0.0-0.5 [facility] Comment on above: Performed By: #### T 4LC #### [facility] [address] [place] [address] Dr. Jeffrey Thomas LYMPH # 2.1 103/ul Normal 1.2-3.8 [facility] Comment on above: Performed By: #### T 4LC #### [facility] [address] [place] [address] Dr. Jeffrey Thomas Lymphocytes/100 WBC (Bld) 30.8 % Normal 20.5-60.0 [facility] Comment on above: Performed By: #### T 4LC #### [facility] [address] [place] [address] Dr. Jeffrey Thomas MANUAL DIFF REQ NO Normal [facility] Comment on above: Performed By: #### T 4LC #### [facility] [address] [place] [address] Dr. Jeffrey Thomas MCH (RBC) [Entitic mass] 30.3 pg Normal 26.7-34.0 [facility] Comment on above: Performed By: #### T 4LC #### [facility] [address] [place] [address] Dr. Jeffrey Thomas MCHC (RBC) [Mass/Vol] 30.8 g/dL Normal 29.9-35.2 [facility] Comment on above: Performed By: #### T 4LC #### [facility] [address] [place] [address] Dr. Jeffrey Thomas MCV (RBC) [Entitic vol] 98.6 fL Normal 81.0-99.0 [facility] Comment on above: Performed By: #### T 4LC #### [facility] [address] [place] [address] Dr. Jeffrey Thomas MONO # 0.5 103/ul Normal 0.3-0.8 [facility] Comment on above: Performed By: #### T 4LC #### [facility] [address] [place] [address] Dr. Jeffrey Thomas Monocytes/100 WBC (Bld) 7.5 % Normal 1.7-12.0 [facility] Comment on above: Performed By: #### T 4LC #### [facility] [address] [place] [address] Dr. Jeffrey Thomas NEUT # 3.9 103/ul Normal 1.4-6.5 [facility] Comment on above: Performed By: #### T 4LC #### [facility] [address] [place] [address] Dr. Jeffrey Thomas Neutrophils/100 WBC (Bld) 56.9 % Normal 43.0-75.0 [facility] Comment on above: Performed By: #### T 4LC #### [facility] [address] [place] [address] Dr. Jeffrey Thomas Platelet mean volume (Bld) [Entitic vol] 12.0 fL Normal 9.5-13.5 [facility] Comment on above: Performed By: #### T 4LC #### [facility] [address] [place] [address] Dr. Jeffrey Thomas PLT 209 103/ul Normal 150-450 [facility] Comment on above: Performed By: #### T 4LC #### [facility] [address] [place] [address] Dr. Jeffrey Thomas RBC 3.56 106/ul Critically low 4.20-5.40 [facility] Comment on above: Performed By: #### T 4LC #### [facility] [address] [place] [address] Dr. Jeffrey Thomas WBC 6.8 103/ul Normal 4.0-11.0 [facility] Comment on above: Performed By: #### T 4LC #### [facility] [address] [place] [address] Dr. Jeffrey Thomas PROF 14(COMP METB)on 022 Albumin [Mass/Vol] 2.5 g/dL Critically low 3.4-5.0 [facility] Comment on above: Performed By: #### L ACT #### [facility] [address] [place] [address] Dr. Jeffrey Thomas Albumin/Globulin [Mass ratio] 1.0 {ratio} Normal [facility] Comment on above: Performed By: #### L ACT #### [facility] [address] [place] [address] Dr. Jeffrey Thomas ALP [Catalytic activity/Vol] 94 U/L Normal 46-116 [facility] Comment on above: Performed By: #### L ACT #### [facility] [address] [place] [address] Dr. Jeffrey Thomas ALT [Catalytic activity/Vol] 9 U/L Critically low 14-59 [facility] Comment on above: Performed By: #### L ACT #### [facility] [address] [place] [address] Dr. Jeffrey Thomas Anion gap [Moles/Vol] 11.7 mmol/L Normal [facility] Comment on above: Performed By: #### L ACT #### [facility] [address] [place] [address] Dr. Jeffrey Thomas AST [Catalytic activity/Vol] 6 U/L Critically low 15-37 [facility] Comment on above: Performed By: #### L ACT #### [facility] [address] [place] [address] Dr. Jeffrey Thomas Bilirubin [Mass/Vol] 0.1 mg/dL Critically low 0.2-1.0 [facility] Comment on above: Performed By: #### L ACT #### [facility] [address] [place] [address] Dr. Jeffrey Thomas Calcium [Mass/Vol] 8.2 mg/dL Critically low 8.5-10.1 [facility] Comment on above: Performed By: #### L ACT #### [facility] [address] [address] [address] Jeffrey Thomas Chloride [Moles/Vol] 111 mmol/L Critically high 98-107 [facility] Comment on above: Performed By: #### L ACT #### [facility] [address] [address] [address] Jeffrey Thomas CO2 [Moles/Vol] 22.5 mmol/L Normal 21.0-32.0 [facility] Comment on above: Performed By: #### L ACT #### [facility] [address] [place] [address] Dr. Jeffrey Thomas Creatinine [Mass/Vol] 0.87 mg/dL Normal 0.55-1.02 [facility] Comment on above: Performed By: #### L ACT #### [facility] [address] [place] [address] Dr. Jeffrey Thomas EGFR-AF GREENLANDIC >60 Normal >=60 [facility] Comment on above: Performed By: #### L ACT #### [facility] [address] [place] [address] Dr. Jeffrey Thomas EGFR-NON AF [place] >60 Normal >=60 [facility] Comment on above: Performed By: #### L ACT #### [facility] [address] [place] [address] Dr. Jeffrey Thomas Globulin (S) [Mass/Vol] 2.6 g/dL Normal [facility] Comment on above: Performed By: #### L ACT #### [facility] [address] [address] [address] Jeffrey Thomas Glucose [Mass/Vol] 111 mg/dL Critically high 74-106 [facility] Comment on above: Performed By: #### L ACT #### [facility] [address] [place] [address] Dr. Jeffrey Thomas Potassium [Moles/Vol] 4.2 mmol/L Normal 3.5-5.1 [facility] Comment on above: Performed By: #### L ACT #### [facility] [address] [address] [address] Jeffrey Thomas Protein [Mass/Vol] 5.1 g/dL Critically low 6.4-8.2 [facility] Comment on above: Performed By: #### L ACT #### [facility] [address] [address] [address] Jeffrey Thomas Sodium [Moles/Vol] 141 mmol/L Normal 136-145 [facility] Comment on above: Performed By: #### L ACT #### [facility] [address] [address] [address] Jeffrey Thomas Urea nitrogen [Mass/Vol] 31.0 mg/dL Critically high 7.0-18.0 [facility] Comment on above: Performed By: #### L ACT #### [facility] [address] [place] [address] Dr. Jeffrey Thomas Urea nitrogen/Creatinine [Mass ratio] 35.6 mg/mg Normal [facility] Comment on above: Performed By: #### L ACT #### [facility] [address] [address] [address] Jeffrey Thomas CBC AUTO DIFFon 12-13-2021 BASO # 0.1 103/ul Normal 0.0-0.1 [facility] Comment on above: Performed By: #### L ACT #### [facility] [address] [place] [address] Dr. Jeffrey Thomas Basophils/100 WBC (Bld) 1.3 % Normal 0.2-2.0 [facility] Comment on above: Performed By: #### L ACT #### [facility] [address] [address] [address] Jeffrey Thomas EO # 0.3 103/ul Normal 0.0-0.7 [facility] Comment on above: Performed By: #### L ACT #### [facility] [address] [address] [address] Jeffrey Thomas Eosinophils/100 WBC (Bld) 3.8 % Normal 0.9-7.0 [facility] Comment on above: Performed By: #### L ACT #### [facility] [address] [place] [address] Dr. Jeffrey Thomas Erythrocyte distribution width (RBC) [Ratio] 15.7 % Critically high 11.0-15.0 [facility] Comment on above: Performed By: #### L ACT #### [facility] [address] [place] [address] Dr. Jeffrey Thomas Hematocrit (Bld) [Volume fraction] 35.7 % Critically low 36.0-48.0 [facility] Comment on above: Performed By: #### L ACT #### [facility] [address] [place] [address] Dr. Jeffrey Thomas Hemoglobin (Bld) [Mass/Vol] 11.5 g/dL Critically low 12.0-16.0 [facility] Comment on above: Performed By: #### L ACT #### [facility] [address] [place] [address] Dr. Jeffrey Thomas IG # 0.04 10e3/ul Critically high 0.00-0.03 [facility] Comment on above: Performed By: #### L ACT #### [facility] [address] [place] [address] Dr. Jeffrey Thomas IG % 0.6 % Critically high 0.0-0.5 [facility] Comment on above: Performed By: #### L ACT #### [facility] [address] [place] [address] Dr. Jeffrey Thomas LYMPH # 2.0 103/ul Normal 1.2-3.8 [facility] Comment on above: Performed By: #### L ACT #### [facility] [address] [place] [address] Dr. Jeffrey Thomas Lymphocytes/100 WBC (Bld) 28.8 % Normal 20.5-60.0 [facility] Comment on above: Performed By: #### L ACT #### [facility] [address] [place] [address] Dr. Jeffrey Thomas MANUAL DIFF REQ NO Normal [facility] Comment on above: Performed By: #### L ACT #### [facility] [address] [address] [address] Jeffrey Thomas MCH (RBC) [Entitic mass] 31.6 pg Normal 26.7-34.0 [facility] Comment on above: Performed By: #### L ACT #### [facility] [address] [address] [address] Jeffrey Thomas MCHC (RBC) [Mass/Vol] 32.2 g/dL Normal 29.9-35.2 [facility] Comment on above: Performed By: #### L ACT #### [facility] [address] [place] [address] Dr. Jeffrey Thomas MCV (RBC) [Entitic vol] 98.1 fL Normal 81.0-99.0 [facility] Comment on above: Performed By: #### L ACT #### [facility] [address] [place] [address] Dr. Jeffrey Thomas MONO # 0.6 103/ul Normal 0.3-0.8 [facility] Comment on above: Performed By: #### L ACT #### [facility] [address] [place] [address] Dr. Jeffrey Thomas Monocytes/100 WBC (Bld) 8.5 % Normal 1.7-12.0 [facility] Comment on above: Performed By: #### L ACT #### [facility] [address] [place] [address] Dr. Jeffrey Thomas NEUT # 3.9 103/ul Normal 1.4-6.5 [facility] Comment on above: Performed By: #### L ACT #### [facility] [address] [place] [address] Dr. Jeffrey Thomas Neutrophils/100 WBC (Bld) 57.0 % Normal 43.0-75.0 [facility] Comment on above: Performed By: #### L ACT #### [facility] [address] [place] [address] Dr. Jeffrey Thomas Platelet mean volume (Bld) [Entitic vol] 11.5 fL Normal 9.5-13.5 [facility] Comment on above: Performed By: #### L ACT #### [facility] [address] [address] [address] Jeffrey Thomas PLT 199 103/ul Normal 150-450 [facility] Comment on above: Performed By: #### L ACT #### [facility] [address] [address] [address] Jeffrey Thomas RBC 3.64 106/ul Critically low 4.20-5.40 [facility] Comment on above: Performed By: #### L ACT #### [facility] [address] [address] [address] Jeffrey Thomas WBC 6.9 103/ul Normal 4.0-11.0 [facility] Comment on above: Performed By: #### L ACT #### [facility] [address] [place] [address] Dr. Jeffrey Thomas POINT OF CARE GLUCOSEon 12-01 Glucose [Mass/Vol] 85 mg/dL Normal 74-106 [facility] Comment on above: Performed By: #### C MP #### [facility] [address] [place] [address] Dr. Jeffrey Thomas PROF 14(COMP METB)on 022 Albumin [Mass/Vol] 2.7 g/dL Critically low 3.4-5.0 [facility] Comment on above: Performed By: #### A MM #### [facility] [address] [place] [address] Dr. Jeffrey Thomas Albumin/Globulin [Mass ratio] 1.0 {ratio} Normal [facility] Comment on above: Performed By: #### A MM #### [facility] [address] [place] [address] Dr. Jeffrey Thomas ALP [Catalytic activity/Vol] 95 U/L Normal 46-116 [facility] Comment on above: Performed By: #### A MM #### [facility] [address] [place] [address] Dr. Jeffrey Thomas ALT [Catalytic activity/Vol] 11 U/L Critically low 14-59 [facility] Comment on above: Performed By: #### A MM #### [facility] [address] [address] [address] Jeffrey Thomas Anion gap [Moles/Vol] 10.8 mmol/L Normal [facility] Comment on above: Performed By: #### A MM #### [facility] [address] [address] [address] Jeffrey Thomas AST [Catalytic activity/Vol] 14 U/L Critically low 15-37 [facility] Comment on above: Performed By: #### A MM #### [facility] [address] [address] [address] Jeffrey Thomas Bilirubin [Mass/Vol] 0.2 mg/dL Normal 0.2-1.0 [facility] Comment on above: Performed By: #### A MM #### [facility] [address] [place] [address] Dr. Jeffrey Thomas Calcium [Mass/Vol] 8.3 mg/dL Critically low 8.5-10.1 [facility] Comment on above: Performed By: #### A MM #### [facility] [address] [address] [address] Jeffrey Thomas Chloride [Moles/Vol] 113 mmol/L Critically high 98-107 [facility] Comment on above: Performed By: #### A MM #### [facility] [address] [place] [address] Dr. Jeffrey Thomas CO2 [Moles/Vol] 22.1 mmol/L Normal 21.0-32.0 [facility] Comment on above: Performed By: #### A MM #### [facility] [address] [address] [address] Jeffrey Thomas Creatinine [Mass/Vol] 0.98 mg/dL Normal 0.55-1.02 [facility] Comment on above: Performed By: #### A MM #### [facility] [address] [place] [address] Dr. Jeffrey Thomas EGFR-AF GREENLANDIC >60 Normal >=60 [facility] Comment on above: Performed By: #### A MM #### [facility] [address] [address] [address] Jeffrey Thomas EGFR-NON AF GREENLAND[place] 57 mL/min/1.73m2 Critically low >=60 [facility] Comment on above: Performed By: #### A MM #### [facility] [address] [address] [address] Jeffrey Thomas Globulin (S) [Mass/Vol] 2.6 g/dL Normal [facility] Comment on above: Performed By: #### A MM #### [facility] [address] [address] [address] Jeffrey Thomas Glucose [Mass/Vol] 102 mg/dL Normal 74-106 [facility] Comment on above: Performed By: #### A MM #### [facility] [address] [address] [address] Jeffrey Thomas Potassium [Moles/Vol] 3.9 mmol/L Normal 3.5-5.1 [facility] Comment on above: Performed By: #### A MM #### [facility] [address] [address] [address] Jeffrey Thomas Protein [Mass/Vol] 5.3 g/dL Critically low 6.4-8.2 [facility] Comment on above: Performed By: #### A MM #### [facility] [address] [place] [address] Dr. Jeffrey Thomas Sodium [Moles/Vol] 142 mmol/L Normal 136-145 [facility] Comment on above: Performed By: #### A MM #### [facility] [address] [address] [address] Jeffrey Thomas Urea nitrogen [Mass/Vol] 26.0 mg/dL Critically high 7.0-18.0 [facility] Comment on above: Performed By: #### A MM #### [facility] [address] [address] [address] Jeffrey Thomas Urea nitrogen/Creatinine [Mass ratio] 26.5 mg/mg Normal [facility] Comment on above: Performed By: #### A MM #### [facility] [address] [address] [address] Jeffrey Thomas T3, TOTAL (TRIIODOTHYRONINE) on 12-13-2021 T3, TOTAL 72 ng/dL Normal 71-180 [facility] Comment on above: Performed By: #### C MP #### [facility] [address] [place] [address] Dr. Jeffrey Thomas T4 LABCORPon 12-13-2021 T4 [Mass/Vol] 5.2 ug/dL Normal 4.5-12.0 [facility] Comment on above: Performed By: #### T 4LC #### [facility] [address] [place] [address] Dr. Jeffrey Thomas AMMONIAon 12-12-2021 Ammonia (P) [Moles/Vol] 10 umol/L Critically low 11-32 [facility] Comment on above: Performed By: #### A MM #### [facility] [address] [place] [address] Dr. Jeffrey Thomas CBC AUTO DIFFon 12-12-2021 BASO # 0.1 103/ul Normal 0.0-0.1 [facility] Comment on above: Performed By: #### T 4LC #### [facility] [address] [place] [address] Dr. Jeffrey Thomas Basophils/100 WBC (Bld) 1.4 % Normal 0.2-2.0 [facility] Comment on above: Performed By: #### T 4LC #### [facility] [address] [place] [address] Dr. Jeffrey Thomas EO # 0.2 103/ul Normal 0.0-0.7 [facility] Comment on above: Performed By: #### T 4LC #### [facility] [address] [place] [address] Dr. Jeffrey Thomas Eosinophils/100 WBC (Bld) 2.6 % Normal 0.9-7.0 [facility] Comment on above: Performed By: #### T 4LC #### [facility] [address] [place] [address] Dr. Jeffrey Thomas Erythrocyte distribution width (RBC) [Ratio] 15.7 % Critically high 11.0-15.0 [facility] Comment on above: Performed By: #### T 4LC #### [facility] [address] [place] [address] Dr. Jeffrey Thomas Hematocrit (Bld) [Volume fraction] 38.4 % Normal 36.0-48.0 [facility] Comment on above: Performed By: #### T 4LC #### [facility] [address] [place] [address] Dr. Jeffrey Thomas Hemoglobin (Bld) [Mass/Vol] 12.2 g/dL Normal 12.0-16.0 [facility] Comment on above: Performed By: #### T 4LC #### [facility] [address] [place] [address] Dr. Jeffrey Thomas IG # 0.04 10e3/ul Critically high 0.00-0.03 [facility] Comment on above: Performed By: #### T 4LC #### [facility] [address] [place] [address] Dr. Jeffrey Thomas IG % 0.5 % Normal 0.0-0.5 [facility] Comment on above: Performed By: #### T 4LC #### [facility] [address] [place] [address] Dr. Jeffrey Thomas LYMPH # 2.2 103/ul Normal 1.2-3.8 [facility] Comment on above: Performed By: #### T 4LC #### [facility] [address] [place] [address] Dr. Jeffrey Thomas Lymphocytes/100 WBC (Bld) 28.0 % Normal 20.5-60.0 [facility] Comment on above: Performed By: #### T 4LC #### [facility] [address] [place] [address] Dr. Jeffrey Thomas MANUAL DIFF REQ NO Normal [facility] Comment on above: Performed By: #### T 4LC #### [facility] [address] [place] [address] Dr. Jeffrey Thomas MCH (RBC) [Entitic mass] 30.9 pg Normal 26.7-34.0 [facility] Comment on above: Performed By: #### T 4LC #### [facility] [address] [address] [address] Jeffrey Thomas MCHC (RBC) [Mass/Vol] 31.8 g/dL Normal 29.9-35.2 [facility] Comment on above: Performed By: #### T 4LC #### [facility] [address] [place] [address] Dr. Jeffrey Thomas MCV (RBC) [Entitic vol] 97.2 fL Normal 81.0-99.0 [facility] Comment on above: Performed By: #### T 4LC #### [facility] [address] [place] [address] Dr. Jeffrey Thomas MONO # 0.6 103/ul Normal 0.3-0.8 [facility] Comment on above: Performed By: #### T 4LC #### [facility] [address] [place] [address] Dr. Jeffrey Thomas Monocytes/100 WBC (Bld) 7.9 % Normal 1.7-12.0 [facility] Comment on above: Performed By: #### T 4LC #### [facility] [address] [place] [address] Dr. Jeffrey Thomas NEUT # 4.7 103/ul Normal 1.4-6.5 [facility] Comment on above: Performed By: #### T 4LC #### [facility] [address] [place] [address] Dr. Jeffrey Thomas Neutrophils/100 WBC (Bld) 59.6 % Normal 43.0-75.0 [facility] Comment on above: Performed By: #### T 4LC #### [facility] [address] [place] [address] Dr. Jeffrey Thomas Platelet mean volume (Bld) [Entitic vol] 11.7 fL Normal 9.5-13.5 [facility] Comment on above: Performed By: #### T 4LC #### [facility] [address] [place] [address] Dr. Jeffrey Thomas PLT 256 103/ul Normal 150-450 [facility] Comment on above: Performed By: #### T 4LC #### [facility] [address] [address] [address] Jeffrey Thomas RBC 3.95 106/ul Critically low 4.20-5.40 [facility] Comment on above: Performed By: #### T 4LC #### [facility] [address] [address] [address] Jeffrey Thomas WBC 7.9 103/ul Normal 4.0-11.0 [facility] Comment on above: Performed By: #### T 4LC #### [facility] [address] [address] [address] Jeffrey Thomas BASO # 0.1 103/ul Normal 0.0-0.1 [facility] Comment on above: Performed By: #### C MP #### [facility] [address] [place] [address] Dr. Jeffrey Thomas Basophils/100 WBC (Bld) 1.4 % Normal 0.2-2.0 [facility] Comment on above: Performed By: #### C MP #### [facility] [address] [address] [address] Jeffrey Thomas EO # 0.2 103/ul Normal 0.0-0.7 [facility] Comment on above: Performed By: #### C MP #### [facility] [address] [address] [address] Jeffrey Thomas Eosinophils/100 WBC (Bld) 2.9 % Normal 0.9-7.0 [facility] Comment on above: Performed By: #### C MP #### [facility] [address] [place] [address] Dr. Jeffrey Thomas Erythrocyte distribution width (RBC) [Ratio] 15.7 % Critically high 11.0-15.0 [facility] Comment on above: Performed By: #### C MP #### [facility] [address] [place] [address] Dr. Jeffrey Thomas Hematocrit (Bld) [Volume fraction] 40.7 % Normal 36.0-48.0 [facility] Comment on above: Performed By: #### C MP #### [facility] [address] [address] [address] Jeffrey Thomas Hemoglobin (Bld) [Mass/Vol] 12.9 g/dL Normal 12.0-16.0 [facility] Comment on above: Performed By: #### C MP #### [facility] [address] [place] [address] Dr. Jeffrey Thomas IG # 0.02 10e3/ul Normal 0.00-0.03 [facility] Comment on above: Performed By: #### C MP #### [facility] [address] [place] [address] Dr. Jeffrey Thomas IG % 0.3 % Normal 0.0-0.5 [facility] Comment on above: Performed By: #### C MP #### [facility] [address] [place] [address] Dr. Jeffrey Thomas LYMPH # 1.7 103/ul Normal 1.2-3.8 [facility] Comment on above: Performed By: #### C MP #### [facility] [address] [place] [address] Dr. Jeffrey Thomas Lymphocytes/100 WBC (Bld) 28.4 % Normal 20.5-60.0 [facility] Comment on above: Performed By: #### C MP #### [facility] [address] [place] [address] Dr. Jeffrey Thomas MANUAL DIFF REQ NO Normal [facility] Comment on above: Performed By: #### C MP #### [facility] [address] [place] [address] Dr. Jeffrey Thomas MCH (RBC) [Entitic mass] 30.7 pg Normal 26.7-34.0 [facility] Comment on above: Performed By: #### C MP #### [facility] [address] [place] [address] Dr. Jeffrey Thomas MCHC (RBC) [Mass/Vol] 31.7 g/dL Normal 29.9-35.2 [facility] Comment on above: Performed By: #### C MP #### [facility] [address] [address] [address] Jeffrey Thomas MCV (RBC) [Entitic vol] 96.9 fL Normal 81.0-99.0 [facility] Comment on above: Performed By: #### C MP #### [facility] [address] [address] [address] Jeffrey Thomas MONO # 0.5 103/ul Normal 0.3-0.8 [facility] Comment on above: Performed By: #### C MP #### [facility] [address] [address] [address] Jeffrey Thomas Monocytes/100 WBC (Bld) 8.3 % Normal 1.7-12.0 [facility] Comment on above: Performed By: #### C MP #### [facility] [address] [place] [address] Dr. Jeffrey Thomas NEUT # 3.5 103/ul Normal 1.4-6.5 [facility] Comment on above: Performed By: #### C MP #### [facility] [address] [place] [address] Dr. Jeffrey Thomas Neutrophils/100 WBC (Bld) 58.7 % Normal 43.0-75.0 [facility] Comment on above: Performed By: #### C MP #### [facility] [address] [place] [address] Dr. Jeffrey Thomas Platelet mean volume (Bld) [Entitic vol] 11.5 fL Normal 9.5-13.5 [facility] Comment on above: Performed By: #### C MP #### [facility] [address] [place] [address] Dr. Jeffrey Thomas PLT 241 103/ul Normal 150-450 [facility] Comment on above: Performed By: #### C MP #### [facility] [address] [place] [address] Dr. Jeffrey Thomas RBC 4.20 106/ul Normal 4.20-5.40 [facility] Comment on above: Performed By: #### C MP #### [facility] [address] [place] [address] Dr. Jeffrey Thomas WBC 5.9 103/ul Normal 4.0-11.0 [facility] Comment on above: Performed By: #### C MP #### [facility] [address] [address] [address] Jeffrey Thomas BASO # 0.1 103/ul Normal 0.0-0.1 [facility] Comment on above: Performed By: #### A MM #### [facility] [address] [address] [address] Jeffrey Thomas Basophils/100 WBC (Bld) 1.7 % Normal 0.2-2.0 [facility] Comment on above: Performed By: #### A MM #### [facility] [address] [address] [address] Jeffrey Thomas EO # 0.1 103/ul Normal 0.0-0.7 [facility] Comment on above: Performed By: #### A MM #### [facility] [address] [address] [address] Jeffrey Thomas Eosinophils/100 WBC (Bld) 1.7 % Normal 0.9-7.0 [facility] Comment on above: Performed By: #### A MM #### [facility] [address] [address] [address] Jeffrey Thomas Erythrocyte distribution width (RBC) [Ratio] 15.6 % Critically high 11.0-15.0 [facility] Comment on above: Performed By: #### A MM #### [facility] [address] [address] [address] Jeffrey Thomas Hematocrit (Bld) [Volume fraction] 43.4 % Normal 36.0-48.0 [facility] Comment on above: Performed By: #### A MM #### [facility] [address] [address] [address] Jeffrey Thomas Hemoglobin (Bld) [Mass/Vol] 14.2 g/dL Normal 12.0-16.0 [facility] Comment on above: Performed By: #### A MM #### [facility] [address] [address] [address] Jeffrey Thomas IG # 0.04 10e3/ul Critically high 0.00-0.03 [facility] Comment on above: Performed By: #### A MM #### [facility] [address] [place] [address] Dr. Jeffrey Thomas IG % 0.6 % Critically high 0.0-0.5 [facility] Comment on above: Performed By: #### A MM #### [facility] [address] [place] [address] Dr. Jeffrey Thomas LYMPH # 2.2 103/ul Normal 1.2-3.8 [facility] Comment on above: Performed By: #### A MM #### [facility] [address] [place] [address] Dr. Jeffrey Thomas Lymphocytes/100 WBC (Bld) 32.7 % Normal 20.5-60.0 [facility] Comment on above: Performed By: #### A MM #### [facility] [address] [place] [address] Dr. Jeffrey Thomas MANUAL DIFF REQ NO Normal [facility] Comment on above: Performed By: #### A MM #### [facility] [address] [place] [address] Dr. Jeffrey Thomas MCH (RBC) [Entitic mass] 31.3 pg Normal 26.7-34.0 [facility] Comment on above: Performed By: #### A MM #### [facility] [address] [place] [address] Dr. Jeffrey Thomas MCHC (RBC) [Mass/Vol] 32.7 g/dL Normal 29.9-35.2 [facility] Comment on above: Performed By: #### A MM #### [facility] [address] [place] [address] Dr. Jeffrey Thomas MCV (RBC) [Entitic vol] 95.8 fL Normal 81.0-99.0 [facility] Comment on above: Performed By: #### A MM #### [facility] [address] [place] [address] Dr. Jeffrey Thomas MONO # 0.7 103/ul Normal 0.3-0.8 [facility] Comment on above: Performed By: #### A MM #### [facility] [address] [place] [address] Dr. Jeffrey Thomas Monocytes/100 WBC (Bld) 9.9 % Normal 1.7-12.0 [facility] Comment on above: Performed By: #### A MM #### [facility] [address] [place] [address] Dr. Jeffrey Thomas NEUT # 3.5 103/ul Normal 1.4-6.5 [facility] Comment on above: Performed By: #### A MM #### [facility] [address] [place] [address] Dr. Jeffrey Thomas Neutrophils/100 WBC (Bld) 53.4 % Normal 43.0-75.0 [facility] Comment on above: Performed By: #### A MM #### [facility] [address] [place] [address] Dr. Jeffrey Thomas Platelet mean volume (Bld) [Entitic vol] 12.1 fL Normal 9.5-13.5 [facility] Comment on above: Performed By: #### A MM #### [facility] [address] [place] [address] Dr. Jeffrey Thomas PLT 307 103/ul Normal 150-450 [facility] Comment on above: Performed By: #### A MM #### [facility] [address] [place] [address] Dr. Jeffrey Thomas RBC 4.53 106/ul Normal 4.20-5.40 [facility] Comment on above: Performed By: #### A MM #### [facility] [address] [place] [address] Dr. Jeffrey Thomas WBC 6.6 103/ul Normal 4.0-11.0 [facility] Comment on above: Performed By: #### A MM #### [facility] [address] [place] [address] Dr. Jeffrey Thomas [facility]on 12-01 SARS-CoV-2 (COVID-19) RNA REBECCA+probe Ql (Unsp spec) Not detected Normal NOT DETECTED [facility] Comment on above: Result Comment: When diagnostic [...] for this test is supported by the Line [employer] of Health and Human Service's declaration that [...] used). Performed By: #### C VDTB #### [facility] [address] [place] [address] Dr. Jeffrey Thomas DRUG SCREEN RAPID (URINE)on 12-12-2021 AMP Negative Normal NEGATIVE [facility] Comment on above: Performed By: #### T 4LC #### [facility] [address] [place] [address] Dr. Jeffrey Thomas BAR Negative Normal NEGATIVE [facility] Comment on above: Performed By: #### T 4LC #### [facility] [address] [place] [address] Dr. Jeffrey Thomas BUP Negative Normal NEGATIVE [facility] Comment on above: Performed By: #### T 4LC #### [facility] [address] [place] [address] Dr. Jeffrey Thomas BZO Positive Abnormal NEGATIVE [facility] Comment on above: Performed By: #### T 4LC #### [facility] [address] [place] [address] Dr. Jeffrey Thomas VIKASH Negative Normal NEGATIVE [facility] Comment on above: Performed By: #### T 4LC #### [facility] [address] [place] [address] Dr. Jeffrey Thomas CUT-OFFS SEE BELOW Normal [facility] Comment on above: Result Comment: AMP (Amphetamine): 500ng/mL, BAR (Barbituates): 200 ng/mL, BZO (Benzodiazepines): 150 ng/mL, BUP (Buprenorphine): 10 ng/mL, VIKASH (Cocaine): 150 ng/mL, mAMP (Methamphetamine): 500 ng/mL, MTD (Methadone): 200 ng/mL, OPI (Opiates): 100 ng/mL, OXY (Oxycodone): 100 ng/mL, PCP (Phencyclidine): 25 ng/mL, PPX (Propoxyphene): 300 ng/mL, THC (Cannabinoids): 50 ng/mL, TCA (Trycyclic Antidepressants): 300 ng/mL Performed By: #### T 4LC #### [facility] [address] [place] [address] Dr. Jeffrey Thomas DRUG CUT HEADER DRUG CLASS TEST SYSTEM CUT-OFF CONCENTRATIONS ARE FOLLOWS: Normal [facility] Comment on above: Performed By: #### T 4LC #### [facility] [address] [place] [address] Dr. Jeffrey Thomas mAMP Negative Normal NEGATIVE [facility] Comment on above: Performed By: #### T 4LC #### [facility] [address] [place] [address] Dr. Jeffrey Thomas MTD Negative Normal NEGATIVE [facility] Comment on above: Performed By: #### T 4LC #### [facility] [address] [place] [address] Dr. Jeffrey Thomas OPI Negative Normal NEGATIVE [facility] Comment on above: Performed By: #### T 4LC #### [facility] [address] [place] [address] Dr. Jeffrey Thomas OXY Negative Normal NEGATIVE [facility] Comment on above: Performed By: #### T 4LC #### [facility] [address] [place] [address] Dr. Jeffrey Thomas PCP Negative Normal NEGATIVE [facility] Comment on above: Performed By: #### T 4LC #### [facility] [address] [address] [address] Jeffrey Thomas PPX Negative Normal NEGATIVE [facility] Comment on above: Performed By: #### T 4LC #### [facility] [address] [place] [address] Dr. Jeffrey Thomas TCA Positive Abnormal NEGATIVE [facility] Comment on above: Performed By: #### T 4LC #### [facility] [address] [place] [address] Dr. Jeffrey Thomas THC Negative Normal NEGATIVE [facility] Comment on above: Performed By: #### T 4LC #### [facility] [address] [place] [address] Dr. Jeffrey Thomas AMP Negative Normal NEGATIVE [facility] Comment on above: Performed By: #### C MP #### [facility] [address] [place] [address] Dr. Jeffrey Thomas BAR Negative Normal NEGATIVE [facility] Comment on above: Performed By: #### C MP #### [facility] [address] [place] [address] Dr. Jeffrey Thomas BUP Negative Normal NEGATIVE [facility] Comment on above: Performed By: #### C MP #### [facility] [address] [place] [address] Dr. Jeffrey Thomas BZO Positive Abnormal NEGATIVE [facility] Comment on above: Performed By: #### C MP #### [facility] [address] [place] [address] Dr. Jeffrey Thomas VIKASH Negative Normal NEGATIVE [facility] Comment on above: Performed By: #### C MP #### [facility] [address] [place] [address] Dr. Jeffrey Thomas CUT-OFFS SEE BELOW Normal [facility] Comment on above: Result Comment: AMP (Amphetamine): 500ng/mL, BAR (Barbituates): 200 ng/mL, BZO (Benzodiazepines): 150 ng/mL, BUP (Buprenorphine): 10 ng/mL, VIKASH (Cocaine): 150 ng/mL, mAMP (Methamphetamine): 500 ng/mL, MTD (Methadone): 200 ng/mL, OPI (Opiates): 100 ng/mL, OXY (Oxycodone): 100 ng/mL, PCP (Phencyclidine): 25 ng/mL, PPX (Propoxyphene): 300 ng/mL, THC (Cannabinoids): 50 ng/mL, TCA (Trycyclic Antidepressants): 300 ng/mL Performed By: #### C MP #### [facility] [address] [place] [address] Dr. Jeffrey Thomas DRUG CUT HEADER DRUG CLASS TEST SYSTEM CUT-OFF CONCENTRATIONS ARE FOLLOWS: Normal [facility] Comment on above: Performed By: #### C MP #### [facility] [address] [place] [address] Dr. Jeffrey Thomas mAMP Negative Normal NEGATIVE [facility] Comment on above: Performed By: #### C MP #### [facility] [address] [place] [address] Dr. Jeffrey Thomas MTD Negative Normal NEGATIVE [facility] Comment on above: Performed By: #### C MP #### [facility] [address] [place] [address] Dr. Jeffrey Thomas OPI Negative Normal NEGATIVE [facility] Comment on above: Performed By: #### C MP #### [facility] [address] [place] [address] Dr. Jeffrey Thomas OXY Negative Normal NEGATIVE [facility] Comment on above: Performed By: #### C MP #### [facility] [address] [place] [address] Dr. Jeffrey Thomas PCP Negative Normal NEGATIVE [facility] Comment on above: Performed By: #### C MP #### [facility] [address] [place] [address] Dr. Jeffrey Thomas PPX Negative Normal NEGATIVE [facility] Comment on above: Performed By: #### C MP #### [facility] [address] [place] [address] Dr. Jeffrey Thomas TCA Positive Abnormal NEGATIVE [facility] Comment on above: Performed By: #### C MP #### [facility] [address] [place] [address] Dr. Jeffrey Thomas THC Negative Normal NEGATIVE [facility] Comment on above: Performed By: #### C MP #### [facility] [address] [place] [address] Dr. Jeffrey Thomas ER URINE PROFILEon 2 Bilirubin Ql (U) SMALL Abnormal NEGATIVE [facility] Comment on above: Performed By: #### C MP #### [facility] [address] [place] [address] Dr. Jeffrey Thomas Clarity (U) CLEAR Normal CLEAR [facility] Comment on above: Performed By: #### C MP #### [facility] [address] [place] [address] Dr. Jeffrey Thomas Color (U) YELLOW Normal YELLOW [facility] Comment on above: Performed By: #### C MP #### [facility] [address] [place] [address] Dr. Jeffrey HOFFMAN A micrscopic examination will be performed if indicated. Normal [facility] Comment on above: Performed By: #### C MP #### [facility] [address] [place] [address] Dr. Jeffrey Thomas Glucose Ql (U) Negative Normal NEGATIVE [facility] Comment on above: Performed By: #### C MP #### [facility] [address] [place] [address] Dr. Jeffrey Thomas Hemoglobin Ql (U) Negative Normal NEGATIVE [facility] Comment on above: Performed By: #### C MP #### [facility] [address] [place] [address] Dr. Jeffrey Thomas Ketones Ql (U) Negative Normal NEGATIVE [facility] Comment on above: Performed By: #### C MP #### [facility] [address] [place] [address] Dr. Jeffrey Thomas LEUKOCYTES Negative Normal NEGATIVE [facility] Comment on above: Performed By: #### C MP #### [facility] [address] [place] [address] Dr. Jeffrey Thomas Nitrite Ql (U) Negative Normal NEGATIVE [facility] Comment on above: Performed By: #### C MP #### [facility] [address] [place] [address] Dr. Jeffrey Thomas pH (U) 5.0 [pH] Normal 5-9 [facility] Comment on above: Performed By: #### C MP #### [facility] [address] [place] [address] Dr. Jeffrey Thomas SPEC GRAVITY 1.025 Normal 1.005-<=1.02 5 [facility] Comment on above: Performed By: #### C MP #### [facility] [address] [place] [address] Dr. Jeffrey Thomas UA PROTEIN Negative Normal NEGATIVE/ TRACE [facility] Comment on above: Performed By: #### C MP #### [facility] [address] [place] [address] Dr. Jeffrey Thomas UR MICRO IND NOT INDICATED Normal [facility] Comment on above: Performed By: #### C MP #### [facility] [address] [place] [address] Dr. Jeffrey Thomas Urobilinogen Qn (U) 0.2 {Bere'U}/dL Normal 0.2 - 1. 0 [facility] Comment on above: Performed By: #### C MP #### [facility] [address] [place] [address] Dr. Jeffrey Thomas PROF 14(COMP METB)on 022 Albumin [Mass/Vol] 2.9 g/dL Critically low 3.4-5.0 [facility] Comment on above: Performed By: #### C MP #### [facility] [address] [place] [address] Dr. Jeffrey Thomas Albumin/Globulin [Mass ratio] 1.0 {ratio} Normal [facility] Comment on above: Performed By: #### C MP #### [facility] [address] [place] [address] Dr. Jeffrey Thomas ALP [Catalytic activity/Vol] 116 U/L Normal 46-116 [facility] Comment on above: Performed By: #### C MP #### [facility] [address] [place] [address] Dr. Jeffrey Thomas ALT [Catalytic activity/Vol] 12 U/L Critically low 14-59 [facility] Comment on above: Performed By: #### C MP #### [facility] [address] [address] [address] Jeffrey Thomas Anion gap [Moles/Vol] 11.8 mmol/L Normal [facility] Comment on above: Performed By: #### C MP #### [facility] [address] [address] [address] Jeffrey Thomas AST [Catalytic activity/Vol] 12 U/L Critically low 15-37 [facility] Comment on above: Performed By: #### C MP #### [facility] [address] [address] [address] Jeffrey Thomas Bilirubin [Mass/Vol] 0.1 mg/dL Critically low 0.2-1.0 [facility] Comment on above: Performed By: #### C MP #### [facility] [address] [address] [address] Jeffrey Thomas Calcium [Mass/Vol] 8.2 mg/dL Critically low 8.5-10.1 [facility] Comment on above: Performed By: #### C MP #### [facility] [address] [address] [address] Jeffrey Thomas Chloride [Moles/Vol] 111 mmol/L Critically high 98-107 [facility] Comment on above: Performed By: #### C MP #### [facility] [address] [address] [address] Jeffrey Thomas CO2 [Moles/Vol] 20.2 mmol/L Critically low 21.0-32.0 [facility] Comment on above: Performed By: #### C MP #### [facility] [address] [address] [address] Jeffrey Thomas Creatinine [Mass/Vol] 1.26 mg/dL Critically high 0.55-1.02 [facility] Comment on above: Performed By: #### C MP #### [facility] [address] [address] [address] Jeffrey Thomas EGFR-AF GREENLANDIC 52 mL/min/1.73m2 Critically low >=60 [facility] Comment on above: Performed By: #### C MP #### [facility] [address] [address] [address] Jeffrey Thomas EGFR-NON AF GREENLANDIC 43 mL/min/1.73m2 Critically low >=60 [facility] Comment on above: Performed By: #### C MP #### [facility] [address] [address] [address] Jeffrey Thomas Globulin (S) [Mass/Vol] 3.0 g/dL Normal [facility] Comment on above: Performed By: #### C MP #### [facility] [address] [address] [address] Jeffrey Thomas Glucose [Mass/Vol] 131 mg/dL Critically high 74-106 [facility] Comment on above: Performed By: #### C MP #### [facility] [address] [address] [address] Jeffrey Thomas Potassium [Moles/Vol] 4.0 mmol/L Normal 3.5-5.1 [facility] Comment on above: Performed By: #### C MP #### [facility] [address] [address] [address] Jeffrey Thomas Protein [Mass/Vol] 5.9 g/dL Critically low 6.4-8.2 [facility] Comment on above: Performed By: #### C MP #### [facility] [address] [address] [address] Jeffrey Thomas Sodium [Moles/Vol] 139 mmol/L Normal 136-145 [facility] Comment on above: Performed By: #### C MP #### [facility] [address] [address] [address] Jeffrey Thomas Urea nitrogen [Mass/Vol] 30.0 mg/dL Critically high 7.0-18.0 [facility] Comment on above: Performed By: #### C MP #### [facility] [address] [address] [address] Jeffrey Thomas Urea nitrogen/Creatinine [Mass ratio] 23.8 mg/mg Normal [facility] Comment on above: Performed By: #### C MP #### [facility] [address] [address] [address] Jeffrey Thomas Albumin [Mass/Vol] 3.1 g/dL Critically low 3.4-5.0 [facility] Comment on above: Performed By: #### C MP #### [facility] [address] [address] [address] Jeffrey Thomas Albumin/Globulin [Mass ratio] 1.0 {ratio} Normal [facility] Comment on above: Performed By: #### C MP #### [facility] [address] [address] [address] Jeffrey Thomas ALP [Catalytic activity/Vol] 119 U/L Critically high 46-116 [facility] Comment on above: Performed By: #### C MP #### [facility] [address] [place] [address] Dr. Jeffrey Thomas ALT [Catalytic activity/Vol] 13 U/L Critically low 14-59 [facility] Comment on above: Performed By: #### C MP #### [facility] [address] [place] [address] Dr. Jeffrey Thomas Anion gap [Moles/Vol] 11.9 mmol/L Normal [facility] Comment on above: Performed By: #### C MP #### [facility] [address] [place] [address] Dr. Jeffrey Thomas AST [Catalytic activity/Vol] 15 U/L Normal 15-37 [facility] Comment on above: Performed By: #### C MP #### [facility] [address] [place] [address] Dr. Jeffrey Thomas Bilirubin [Mass/Vol] 0.3 mg/dL Normal 0.2-1.0 [facility] Comment on above: Performed By: #### C MP #### [facility] [address] [place] [address] Dr. Jeffrey Thomas Calcium [Mass/Vol] 8.5 mg/dL Normal 8.5-10.1 [facility] Comment on above: Performed By: #### C MP #### [facility] [address] [address] [address] Jeffrey Thomas Chloride [Moles/Vol] 109 mmol/L Critically high 98-107 [facility] Comment on above: Performed By: #### C MP #### [facility] [address] [address] [address] Jeffrey Thomas CO2 [Moles/Vol] 21.9 mmol/L Normal 21.0-32.0 [facility] Comment on above: Performed By: #### C MP #### [facility] [address] [address] [address] Jeffrey Thomas Creatinine [Mass/Vol] 1.18 mg/dL Critically high 0.55-1.02 [facility] Comment on above: Performed By: #### C MP #### [facility] [address] [address] [address] Jeffrey Thomas EGFR-AF GREENLANDIC 56 mL/min/1.73m2 Critically low >=60 [facility] Comment on above: Performed By: #### C MP #### [facility] [address] [address] [address] Jeffrey Thomas EGFR-NON AF GRE[place] 46 mL/min/1.73m2 Critically low >=60 [facility] Comment on above: Performed By: #### C MP #### [facility] [address] [address] [address] Jeffrey Thomas Globulin (S) [Mass/Vol] 3.1 g/dL Normal [facility] Comment on above: Performed By: #### C MP #### [facility] [address] [address] [address] Jeffrey Thomas Glucose [Mass/Vol] 94 mg/dL Normal 74-106 [facility] Comment on above: Performed By: #### C MP #### [facility] [address] [address] [address] Jeffrey Thomas Potassium [Moles/Vol] 3.8 mmol/L Normal 3.5-5.1 [facility] Comment on above: Performed By: #### C MP #### [facility] [address] [address] [address] Jeffrey Thomas Protein [Mass/Vol] 6.2 g/dL Critically low 6.4-8.2 [facility] Comment on above: Performed By: #### C MP #### [facility] [address] [address] [address] Jeffrey Thomas Sodium [Moles/Vol] 139 mmol/L Normal 136-145 [facility] Comment on above: Performed By: #### C MP #### [facility] [address] [address] [address] Jeffrey Thomas Urea nitrogen [Mass/Vol] 27.0 mg/dL Critically high 7.0-18.0 [facility] Comment on above: Performed By: #### C MP #### [facility] [address] [place] [address] Dr. Jeffrey Thomas Urea nitrogen/Creatinine [Mass ratio] 22.9 mg/mg Normal [facility] Comment on above: Performed By: #### C MP #### [facility] [address] [place] [address] Dr. Jeffrey Thomas Albumin [Mass/Vol] 3.3 g/dL Critically low 3.4-5.0 [facility] Comment on above: Performed By: #### A MM #### [facility] [address] [place] [address] Dr. Jeffrey Thomas Albumin/Globulin [Mass ratio] 1.0 {ratio} Normal [facility] Comment on above: Performed By: #### A MM #### [facility] [address] [place] [address] Dr. Jeffrey Thomas ALP [Catalytic activity/Vol] 127 U/L Critically high 46-116 [facility] Comment on above: Performed By: #### A MM #### [facility] [address] [place] [address] Dr. Jeffrey Thomas ALT [Catalytic activity/Vol] 10 U/L Critically low 14-59 [facility] Comment on above: Performed By: #### A MM #### [facility] [address] [place] [address] Dr. Jeffrey Thomas Anion gap [Moles/Vol] 12.9 mmol/L Normal [facility] Comment on above: Performed By: #### A MM #### [facility] [address] [address] [address] Jeffrey Thomas AST [Catalytic activity/Vol] 20 U/L Normal 15-37 [facility] Comment on above: Performed By: #### A MM #### [facility] [address] [address] [address] Jeffrey Thomas Bilirubin [Mass/Vol] 0.3 mg/dL Normal 0.2-1.0 [facility] Comment on above: Performed By: #### A MM #### [facility] [address] [address] [address] Jeffrey Thomas Calcium [Mass/Vol] 8.9 mg/dL Normal 8.5-10.1 [facility] Comment on above: Performed By: #### A MM #### [facility] [address] [address] [address] Jeffrey Thomas Chloride [Moles/Vol] 106 mmol/L Normal 98-107 [facility] Comment on above: Performed By: #### A MM #### [facility] [address] [address] [address] Jeffrey Thomas CO2 [Moles/Vol] 21.8 mmol/L Normal 21.0-32.0 [facility] Comment on above: Performed By: #### A MM #### [facility] [address] [address] [address] Jeffrey Thomas Creatinine [Mass/Vol] 1.54 mg/dL Critically high 0.55-1.02 [facility] Comment on above: Performed By: #### A MM #### [facility] [address] [address] [address] Jeffrey Thomas EGFR-AF GREENLANDIC 41 mL/min/1.73m2 Critically low >=60 [facility] Comment on above: Performed By: #### A MM #### [facility] [address] [address] [address] Jeffrey Thomas EGFR-NON AF GRE[place]IC 34 mL/min/1.73m2 Critically low >=60 [facility] Comment on above: Performed By: #### A MM #### [facility] [address] [address] [address] Jeffrey Thomas Globulin (S) [Mass/Vol] 3.4 g/dL Normal [facility] Comment on above: Performed By: #### A MM #### [facility] [address] [address] [address] Jeffrey Thomas Glucose [Mass/Vol] 139 mg/dL Critically high 74-106 [facility] Comment on above: Performed By: #### A MM #### [facility] [address] [address] [address] Jeffrey Thomas Potassium [Moles/Vol] 3.7 mmol/L Normal 3.5-5.1 [facility] Comment on above: Performed By: #### A MM #### [facility] [address] [address] [address] Jeffrey Thomas Protein [Mass/Vol] 6.7 g/dL Normal 6.4-8.2 [facility] Comment on above: Performed By: #### A MM #### [facility] [address] [address] [address] Jeffrey Thomas Sodium [Moles/Vol] 139 mmol/L Normal 136-145 [facility] Comment on above: Performed By: #### A MM #### [facility] [address] [address] [address] Jeffrey Thomas Urea nitrogen [Mass/Vol] 31.0 mg/dL Critically high 7.0-18.0 [facility] Comment on above: Performed By: #### A MM #### [facility] [address] [address] [address] Jeffrey Thomas Urea nitrogen/Creatinine [Mass ratio] 20.1 mg/mg Normal [facility] Comment on above: Performed By: #### A MM #### [facility] [address] [address] [address] Jeffrey Thomas PROTIMEon 12-12-2021 INR Coag (PPP) [Relative time] 1.13 {INR} Normal [facility] Comment on above: Performed By: #### T 4LC #### [facility] [address] [address] [address] Jeffrey Thomas INR GUIDELINES SEE BELOW Normal [facility] Comment on above: Result Comment: MERARI RED INR: 2.0 - 3.0 CONDITIONS NOT LISTED BELOW 2.5 - 3.5 FOR PROSTHETIC HEART VALVE REPLACEMENT 2.5 - 3.5 RECURRENT THROMBOSIS Performed By: #### T 4LC #### [facility] [address] [address] [address] Jeffrey Thomas PT Coag (PPP) [Time] 12.1 s Critically high 9.0-11.6 [facility] Comment on above: Performed By: #### T 4LC #### [facility] [address] [place] [address] Dr. Jeffrey Thomas TSHon 12-12-2021 TSH 0.729 uIU/mL Normal 0.358-3.740 [facility] Comment on above: Performed By: #### C MP #### [facility] [address] [place] [address] Dr. Jeffrey Thomas XR CHEST 1 Von [...] by: GUILLE RAY Date: 2021-12-11 23:48 Normal [facility] PT Coag (PPP) [Time]on 01-08 INR Coag (PPP) [Relative time] 1.5 {INR} <=5.0 [facility] Comment on above: The recommended ther apeutic INR range for most cardiac indications is 2.0-3.0 For high intensity therapy (i.e. mechanical heart valves), the recommended range is 2.5-3.5 Interpretation and review of laboratory results Abnormal [facility] PT Coag (Bld) [Time] 18.1 s [facility] Basic metabolic 2000 panelon 01-07-2021 Calcium [Mass/Vol] 8.8 mg/dL Normal 8.5-10.6 [facility] Chloride [Moles/Vol] 107 mmol/L Normal 98-107 [facility] CO2 [Moles/Vol] 25 mmol/L Normal 21-32 [facility] Creatinine [Mass/Vol] 1.87 mg/dL High 0.55-1.02 [facility] Glucose [Mass/Vol] 96 mg/dL Normal 70-99 [facility] Potassium [Moles/Vol] 4.5 mmol/L Normal 3.5-5.1 [facility] Sodium [Moles/Vol] 141 mmol/L Normal 136-145 [facility] Urea nitrogen (BldV) [Mass/Vol] 27 mg/dL High 7.0-18.0 [facility] Urea nitrogen/Creatinine [Mass ratio] 14 mg/mg Normal [facility] Coronavirus (COVID-19/SARS-C oV-2) RAPIDon 01-07-2021 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 N Normal [facility] First test N Normal [facility] ICU N Normal [facility] Illness or injury onset date and time Normal [facility] Patient was hospitalized because of this condition Y Normal [facility] status N Normal [facility] Resides in congregate care setting N Normal [facility] SARS-CoV-2 (COVID-19) RNA REBECCA+probe Ql (Resp) Not detected Normal NDET [facility] Comment on above: Result Comment: This test was performed via the [employer] ID NOW COVID 19 assay and has been authorized by FDA under an Emergency Use Authorization (EUA). The assay is validated for nasopharyngeal (QUALITY CONTROL MICROBIOLOGIST), nasal, and oropharyngeal (OP) direct swabs. The [...] Symptomatic as defined by CDC N Normal [facility] Gentamicin Trough Levelon Gentamicin trough [Mass/Vol] 1.0 mg/L Normal [facility] Comment on above: Result Comment: Refe rence range: 0.0 to 2.0 Unit: UG/ML PT Coag (PPP) [Time]on 01-07 INR Coag (Bld) [Relative time] 1.3 {INR} Normal [facility] Comment on above: Order Comment: Preho spitalization had reported chronic use of Coumadin which was held for surgery. Result Comment: DHARMESHI NG THE INDUCTION PHASE OF ORAL ANTICOAGULATION, THE INR MAY NOT REFLECT THE ANTICOAGULANT STATUS OF THE PATIENT. THERAPEUTIC RANGES FOR INR'S ARE: MOST CLINICAL SITUATIONS: INR 2.0-3.0 MECHANICAL PROSTHETIC VALVES: INR 2.5-3.5 CRITICAL: INR 5.0 Prothrombin Timeon PT Coag (PPP) [Time] 15.7 s High 11.9-14.6 [facility] Comment on above: Order Comment: Preho spitalization had reported chronic use of Coumadin which was held for surgery. Tobramycin random [Moles/Vol ]on 01-07-2021 Tobramycin [Mass/Vol] SEE SEPARATE REPORT Normal 0.5-1 .5 [facility] Comment on above: Result Comment: SEE NOTES REVIEW TAB FOR RESULTS Basic metabolic 2000 panelon 01-06-2021 Calcium [Mass/Vol] 8.6 mg/dL Normal 8.5-10.6 [facility] Chloride [Moles/Vol] 107 mmol/L Normal 98-107 [facility] CO2 [Moles/Vol] 24 mmol/L Normal 21-32 [facility] Creatinine [Mass/Vol] 1.82 mg/dL High 0.55-1.02 [facility] Glucose [Mass/Vol] 87 mg/dL Normal 70-99 [facility] Potassium [Moles/Vol] 4.8 mmol/L Normal 3.5-5.1 [facility] Sodium [Moles/Vol] 140 mmol/L Normal 136-145 [facility] Urea nitrogen (BldV) [Mass/Vol] 30 mg/dL High 7.0-18.0 [facility] Urea nitrogen/Creatinine [Mass ratio] 16 mg/mg Normal [facility] Hematocriton 01-06-2021 Hematocrit (Bld) [Volume fraction] 28.9 % Low 34.0-50.0 [facility] Hemoglobinon 01-06-2021 Hemoglobin (Bld) [Mass/Vol] 9.4 g/dL Low 11.5-17.0 [facility] Histopathology Requeston Relevant diagnostic tests/laboratory data Narrative SPECIMEN DESCRIPTION 1 LEFT KNEE TISSUE RESULT SEE SEPARATE REPORT RESULT SEE NOTES REVIEW TAB FOR RESULTS ROUTINE LAB Report Date: 01/06/2021 09:09:05 Collect Date: 01/03/2021 12:44:00 Normal [facility] PT Coag (PPP) [Time]on 01-06 INR Coag (Bld) [Relative time] 1.1 {INR} Normal [facility] Comment on above: Order Comment: Preho spitalization [...] (PPP) [Time] 14.2 s Normal 11.9-14.6 [facility] Comment on above: Order Comment: Preho spitalization had reported chronic use of Coumadin which was held for surgery. Basic metabolic 2000 panelon 01-05-2021 Calcium [Mass/Vol] 8.1 mg/dL Low 8.5-10.6 [facility] Chloride [Moles/Vol] 108 mmol/L High 98-107 [facility] CO2 [Moles/Vol] 27 mmol/L Normal 21-32 [facility] Creatinine [Mass/Vol] 2.05 mg/dL High 0.55-1.02 [facility] [place] Glucose [Mass/Vol] 91 mg/dL Normal 70-99 [facility] Potassium [Moles/Vol] 4.7 mmol/L Normal 3.5-5.1 [facility] [place] Sodium [Moles/Vol] 141 mmol/L Normal 136-145 [facility] Urea nitrogen (BldV) [Mass/Vol] 36 mg/dL High 7.0-18.0 [facility] Urea nitrogen/Creatinine [Mass ratio] 18 mg/mg Normal [facility] CBC W Auto Differential pane l (Bld)on 01-05-2021 Basophils (Bld) [#/Vol] 0.1 thou/mcL Normal 0.0-0.2 [facility] Basophils/100 WBC (Bld) 0.9 % Normal 0-3 [facility] Differential cell count method Nom (Bld) AUTOMATED DIFFERENTIAL Normal [facility] Eosinophils (Bld) [#/Vol] 0.2 thou/mcL Normal 0.0-0.4 [facility] Eosinophils/100 WBC (Bld) 2.2 % Normal 0-7 [facility] Erythrocyte distribution width (RBC) [Entitic vol] 16.0 % High 11.7-15.0 [facility] Hematocrit (Bld) [Volume fraction] 21.4 % Low 34.0-50.0 [facility] Hemoglobin (Bld) [Mass/Vol] 6.8 g/dL Off scale low 11.5-17.0 [facility] Comment on above: Result Comment: RESU LTS VERIFIED AND CALLED TO/READ BACK BY ALFONSO HILARIO 01.05.21 @0559.BA Lymphocytes (Bld) [#/Vol] 0.9 thou/mcL Normal 0.7-4.5 [facility] Lymphocytes/100 WBC (Bld) 12.7 % Low 14-46 [facility] MCH (RBC) [Entitic mass] 27.2 Picograms Normal 27.0-34.0 [facility] MCHC (RBC) [Mass/Vol] 31.8 g/dL Low 32.0-36.0 Arin nt [facility] MCV (RBC) [Entitic vol] 85.5 fL Normal 80-98 [facility] Monocytes (Bld) [#/Vol] 0.6 thou/mcL Normal 0.1-1.0 [facility] Monocytes/100 WBC (Bld) 8.1 % Normal 4-13 [facility] Neutrophils (Bld) [#/Vol] 5.7 thou/mcL Normal 1.5-7.8 [facility] Neutrophils/100 WBC (Bld) 76.1 % High 40-74 [facility] Platelet mean volume (Bld) [Entitic vol] 10.5 fL Normal 7.5-11.2 [facility] Platelets (Bld) [#/Vol] 141 thou/mcL Normal 140-415 [facility] RBC (Bld) [#/Vol] 2.50 x(10)6/mcL Low 3.80-5.60 Mo [facility] WBC (Bld) [#/Vol] 7.5 thou/mcL Normal 4.0-10.5 [facility] Gentamicin Trough Levelon Gentamicin trough [Mass/Vol] 3.9 mg/L Critically high [facility] Comment on above: Result Comment: Refe rence range: 0.0 to 2.0 Unit: UG/ML (NOTE) Critical value(s) on tests gentt called to and read-back by clementine nuñez at location [facility] by vinnie time called _01/05/21 12:20 Hematocriton 01-05-2021 Hematocrit (Bld) [Volume fraction] 27.2 % Low 34.0-50.0 [facility] Hemoglobinon 01-05-2021 Hemoglobin (Bld) [Mass/Vol] 8.8 g/dL Low 11.5-17.0 [facility] PT Coag (PPP) [Time]on 01-05 INR Coag (Bld) [Relative time] 1.1 {INR} Normal [facility] Comment on above: Order Comment: Preho spitalization had reported chronic use of Coumadin which was held for surgery. Result Comment: DHARMESHYash NG THE INDUCTION PHASE OF ORAL ANTICOAGULATION, THE INR MAY NOT REFLECT THE ANTICOAGULANT STATUS OF THE PATIENT. THERAPEUTIC RANGES FOR INR'S ARE: MOST CLINICAL SITUATIONS: INR 2.0-3.0 MECHANICAL PROSTHETIC VALVES: INR 2.5-3.5 CRITICAL: INR 5.0 Pathology studyon 01-05-2021 Case report TRINITY GODINEZ [id number] YRS F [id number] /[id number] ORDERING PHYSICIAN: CALOS SMITH [...] cut surface is rogers-pink, soft and homogeneous. News Camera Operator sections are submitted in block A1. (RS/1C/MS/RT) Gross examination was performed at [facility]. AJB:MEI 01/04/21 By: LICHA ZEPEDA M.D. (Electronic Signature) MICROSCOPIC: The technical component was performed at [facility], [address] [place] [address]. Microscopic examination was performed. Case resulted at [facility]. DIAGNOSIS: Left knee tissue, revision arthroplasty: -DENSE FIBROUS TISSUE WITH PATCHY CHRONIC INFLAMMATION, FOREIGN BODY GIANT CELL REACTION, AND OSSEOUS METAPLASIA. NOTE: Perivascular lymphocytic inflammation is mild and patchy. JH2:JH2:JH21 END OF REPORT [employer] Comment on above: END OF REPORT [employer] Prothrombin Timeon PT Coag (PPP) [Time] 14.5 s Normal 11.9-14.6 [facility] Comment on above: Order Comment: Preho spitalization had reported chronic use of Coumadin which was held for surgery. Rh Confirm Nom (Bld)on 01-05 ABO group Nom (Bld) A Normal [facility] Rh Nom (Bld) Positive Normal [facility] Tobramycin random [Moles/Vol ]on 01-05-2021 Tobramycin [Mass/Vol] SEE SEPARATE REPORT Normal 0.5-1 .5 [facility] Comment on above: Result Comment: SEE NOTES REVIEW TAB FOR RESULTS Vancomycin [Moles/Vol]on Vancomycin random [Mass/Vol] <3.5 Off scale low 10.0-50.0 [facility] Basic metabolic 2000 panelon 01-04-2021 Calcium [Mass/Vol] 8.5 mg/dL Normal 8.5-10.6 [facility] Chloride [Moles/Vol] 104 mmol/L Normal 98-107 Moun t [facility] CO2 [Moles/Vol] 26 mmol/L Normal 21-32 [facility] Creatinine [Mass/Vol] 2.32 mg/dL High 0.55-1.02 Arin nt [facility] Glucose [Mass/Vol] 90 mg/dL Normal 70-99 [facility] Potassium [Moles/Vol] 5.7 mmol/L Critically high 3.5-5.1 [facility] Comment on above: Result Comment: RESU LTS VERIFIED AND CALLED TO/READ BACK BY ABRAM MCQUEEN 10.5.21 @ 84. Sodium [Moles/Vol] 138 mmol/L Normal 136-145 [facility] Urea nitrogen (BldV) [Mass/Vol] 45 mg/dL High 7.0-18.0 [facility] Urea nitrogen/Creatinine [Mass ratio] 19 mg/mg Normal [facility] CBC W Auto Differential pane l (Bld)on 01-04-2021 Basophils (Bld) [#/Vol] 0.0 thou/mcL Normal 0.0-0.2 [facility] Basophils/100 WBC (Bld) 0.3 % Normal 0-3 [facility] Differential cell count method Nom (Bld) AUTOMATED DIFFERENTIAL Normal [facility] Eosinophils (Bld) [#/Vol] 0.0 thou/mcL Normal 0.0-0.4 [facility] Eosinophils/100 WBC (Bld) 0.2 % Normal 0-7 [facility] Erythrocyte distribution width (RBC) [Entitic vol] 15.5 % High 11.7-15.0 [facility] Hematocrit (Bld) [Volume fraction] 23.5 % Low 34.0-50.0 [facility] Hemoglobin (Bld) [Mass/Vol] 7.5 g/dL Low 11.5-17.0 [facility] Lymphocytes (Bld) [#/Vol] 1.0 thou/mcL Normal 0.7-4.5 [facility] Lymphocytes/100 WBC (Bld) 13.3 % Low 14-46 [facility] MCH (RBC) [Entitic mass] 27.4 Picograms Normal 27.0-34.0 [facility] MCHC (RBC) [Mass/Vol] 32.0 g/dL Normal 32.0-36.0 [facility] [place] MCV (RBC) [Entitic vol] 85.5 fL Normal 80-98 [facility] Monocytes (Bld) [#/Vol] 0.6 thou/mcL Normal 0.1-1.0 [facility] Monocytes/100 WBC (Bld) 7.5 % Normal 4-13 [facility] Neutrophils (Bld) [#/Vol] 5.8 thou/mcL Normal 1.5-7.8 [facility] Neutrophils/100 WBC (Bld) 78.7 % High 40-74 [facility] Platelet mean volume (Bld) [Entitic vol] 10.5 fL Normal 7.5-11.2 [facility] Platelets (Bld) [#/Vol] 167 thou/mcL Normal 140-415 [facility] RBC (Bld) [#/Vol] 2.75 x(10)6/mcL Low 3.80-5.60 Mo [facility] WBC (Bld) [#/Vol] 7.3 thou/mcL Normal 4.0-10.5 [facility] PT Coag (PPP) [Time]on 01-04 INR Coag (Bld) [Relative time] 1.0 {INR} Normal [facility] Comment on above: Order Comment: Preho spitalization had reported chronic use of Coumadin which was held for surgery. Result Comment: DHARMESHI NG THE INDUCTION PHASE OF ORAL ANTICOAGULATION, THE INR MAY NOT REFLECT THE ANTICOAGULANT STATUS OF THE PATIENT. THERAPEUTIC RANGES FOR INR'S ARE: MOST CLINICAL SITUATIONS: INR 2.0-3.0 MECHANICAL PROSTHETIC VALVES: INR 2.5-3.5 CRITICAL: INR 5.0 Prothrombin Timeon PT Coag (PPP) [Time] 13.6 s Normal 11.9-14.6 [facility] Comment on above: Order Comment: Preho [...] mid left lung, likely atelectasis or scarring. [place] thanks you for the opportunity to care for your patient. Workstation ID: [id number] - [id number] FINAL REPORT Dictated By: Garo Albaraod MD 01/04/2021 11:41 Assigned Physician: Garo Albarado MD Reviewed and Electronically Signed By: Garo Albarado MD 01/04/2021 11:45 Transcribed by: [facility] 01/04/2021 11:41 Technologist: [facility] Garo Albarado MD - 01/08/2021 EXAMINATION [...] left lung, likely atelectasis or scarring. Ramy Angel thanks you for the opportunity to care for your patient. Workstation ID: [id number] - [id number] FINAL REPORT Dictated By: Garo Albarado MD 01/04/2021 11:41 Assigned Physician: Garo Albarado MD Reviewed and Electronically Signed By: Garo Albarado MD 01/04/2021 11:45 Transcribed by: [facility] 01/04/2021 11:41 Technologist: RAQUEL [employer] Radiology Study observation (narrative) [employer] XR CHEST 1 VIEWOrdered By: Austyn Albarado on 01-04-2021 [employer] Work Phone: XR Chest 1 Viewon 01-04-2021 [...] left lung, likely atelectasis or scarring. Ramy Angel thanks you for the opportunity to care for your patient. Workstation ID: [id number] - [id number] FINAL REPORT Dictated By: Garo Albarado MD 01/04/2021 11:41 Assigned Physician: Garo Albarado MD Reviewed and Electronically Signed By: Garo Albarado MD 01/04/2021 11:45 Transcribed by: [facility] 01/04/2021 11:41 Technologist: RAQUEL Normal [facility] Blood type and Indirect anti body screen panel (Bld)on 01-03-2021 Blood group antibody screen Ql Negative Normal NEG [facility] Rh Nom (Bld) Positive Normal [facility] Cell Count Body Fluidon Cell count panel (Body fld) COLOR, FLUID RED Normal [facility] Culture Aerobicon 01-03-2021 Bacteria identified Aer cx Nom (Unsp spec) [facility] Microbiology PROCEDURE: Culture Aerobic SOURCE: Tissue BODY [...] NO EPITHELIALS SEEN, NO ORGANISMS SEEN Normal [facility] Comment on above: Performed By: #### 6 34-6 ####[address] Bacteria identified Aer cx Nom (Unsp spec) [facility] Microbiology PROCEDURE: Culture Aerobic SOURCE: Tissue BODY [...] NO EPITHELIALS SEEN, NO ORGANISMS SEEN Normal [facility] Comment on above: Performed By: #### 6 34-6 ####[address] Bacteria identified Aer cx Nom (Unsp spec) [facility] Microbiology PROCEDURE: Culture Aerobic SOURCE: Tissue BODY [...] NO EPITHELIALS SEEN, NO ORGANISMS SEEN Normal [facility] Comment on above: Performed By: #### 6 34-6 ####[address] Bacteria identified Aer cx Nom (Unsp spec) [facility] Microbiology PROCEDURE: Culture Aerobic SOURCE: Tissue BODY [...] NO EPITHELIALS SEEN, NO ORGANISMS SEEN Normal [facility] Comment on above: Performed By: #### 6 34-6 ####[address] Culture Anaerobicon 01-04-20 21 Bacteria identified Anaer cx Nom (Unsp spec) [facility] Microbiology PROCEDURE: Culture Anaerobic SOURCE: Tissue BODY [...] EDT CONTRIBUTOR_SYSTEM, CO_PN CULTURE IN PROGRESS Normal [facility] Comment on above: Performed By: #### 6 35-3 ####[address] Bacteria identified Anaer cx Nom (Unsp spec) [facility] Microbiology PROCEDURE: Culture Anaerobic SOURCE: Tissue BODY [...] 23:34 EDT CONTRIBUTOR_SYSTEM, CO_PN CULTURE IN PROGRESS [facility] Comment on above: Performed By: #### 6 35-3 ####[address] Bacteria identified Anaer cx Nom (Unsp spec) [facility] Microbiology PROCEDURE: Culture Anaerobic SOURCE: Tissue BODY [...] 23:34 EDT CONTRIBUTOR_SYSTEM, CO_PN CULTURE IN PROGRESS [facility] Comment on above: Performed By: #### 6 35-3 ####[id number] [place], [place] Bacteria identified Anaer cx Nom (Unsp spec) [facility] Microbiology PROCEDURE: Culture Anaerobic SOURCE: Tissue BODY [...] 23:34 EDT CONTRIBUTOR_SYSTEM, CO_PN CULTURE IN PROGRESS [facility] Comment on above: Performed By: #### 6 35-3 ####[address] Bacteria identified Anaer cx Nom (Unsp spec) [facility] Microbiology PROCEDURE: Culture Anaerobic SOURCE: Joint Fl [...] 22:43 EDT CONTRIBUTOR_SYSTEM, CO_PN CULTURE IN PROGRESS [facility] Comment on above: Performed By: #### 6 35-3 ####[address] Culture Funguson 01-03-2021 Fungus identified Cx Nom (Unsp spec) [facility] Microbiology PROCEDURE: Culture Fungus SOURCE: Tissue BODY [...] CULTURE WILL BE HELD FOR 1-4 WEEKS [facility] Comment on above: Performed By: #### 5 80-1 ####[address] Fungus identified Cx Nom (Unsp spec) [facility] Microbiology PROCEDURE: Culture Fungus SOURCE: Tissue BODY [...] CULTURE WILL BE HELD FOR 1-4 WEEKS [facility] Comment on above: Performed By: #### 5 80-1 ####[address] Fungus identified Cx Nom (Unsp spec) [facility] Microbiology PROCEDURE: Culture Fungus SOURCE: Tissue BODY [...] WILL BE HELD FOR 1-4 WEEKS Normal [facility] Comment on above: Performed By: #### 5 80-1 ####[address] Fungus identified Cx Nom (Unsp spec) [facility] Microbiology PROCEDURE: Culture Fungus SOURCE: Tissue BODY [...] WILL BE HELD FOR 1-4 WEEKS Normal [facility] Comment on above: Performed By: #### 5 80-1 ####[address] Fungus identified Cx Nom (Unsp spec) [facility] Microbiology PROCEDURE: Culture Fungus SOURCE: Joint Fl [...] WILL BE HELD FOR 1-4 WEEKS Normal [facility] Comment on above: Performed By: #### 5 80-1 ####[address] [id number] [place], [place] Hematocriton 01-03-2021 Hematocrit (Bld) [Volume fraction] 31.6 % Low 34.0-50.0 [facility] Hemoglobinon 01-03-2021 Hemoglobin (Bld) [Mass/Vol] 10.4 g/dL Low 11.5-17.0 [facility] OR Nursingon 01-03-2021 OR Nursing Normal [facility] PACU I Nursingon 01-03-2021 PACU I Nursing GA NA PACU I Nursing Record Summary Primary Physician: Calos Smith Jr, MD Finalized Date/Time: 01/03/21 15:55:58 Pt. Name: TRINITY GODINEZ/Sex: 1955 Female Med Rec #: [id number] Physician: Calos Smith Jr, MD Financial #: [id number] Pt. Type: I Room/Bed: / Admit/Disch: 01/03/21 09:09:00 - Institution: [facility] OR Main PACU I Case Times Entry [...] By: Taryn Leonard RN 01/03/21 15:55 Normal [facility] PT Coag (PPP) [Time]on 01-03 INR Coag (Bld) [Relative time] 1.1 {INR} Normal [facility] Comment on above: Result Comment: DHARMESHI NG [...] MD Finalized Date/Time: 01/03/21 12:12:45 Pt. Name: GRETCHEN TRINITY Austyn Viveros/Sex: 1955 Female Med Rec #: [id number] Physician: Calos Smith Jr, MD Financial #: [id number] Pt. Type: I Room/Bed: / Admit/Disch: 01/03/21 [...] Zoya Hinson RN, I 01/03/21 12:12 Normal [facility] Prothrombin Timeon PT Coag (PPP) [Time] 13.7 s Normal 11.9-14.6 Moun t [facility] Surgical Pathology Final Rep tom 01-03-2021 Pathology study TRINITY GODINEZ [id number] YRS F [id number] RM/BD [id number] 01 ORDERING PHYSICIAN: CALOS SMITH 84 [...] cut surface is rogers-pink, soft and homogeneous. News Camera Operator sections are submitted in block A1. (RS/1C/MS/RT) Gross examination was performed at [facility]. AJB:MEI 01/04/21 By: LICHA ZEPEDA M.D. (Electronic Signature) MICROSCOPIC: The technical component was performed at [facility], [address] [place] [address]. Microscopic examination was performed. Case resulted at [facility]. DIAGNOSIS: Left knee tissue, revision arthroplasty: -DENSE FIBROUS TISSUE WITH PATCHY CHRONIC INFLAMMATION, FOREIGN BODY GIANT CELL REACTION, AND OSSEOUS METAPLASIA. NOTE: Perivascular lymphocytic inflammation is mild and patchy. JH2:JH2:JH21 END OF REPORT END OF REPORT Normal [facility] XR KNEE 1-2 VIEWS LTon 01-03 LEFT [...] knee arthroplasty revision as detailed above. Ramy Angel thanks you for the opportunity to care for your patient. Workstation ID: [id number] - [id number] FINAL REPORT Dictated By: Kerri Reyna MD 01/03/2021 15:49 Assigned Physician: Kerri Reyna MD Reviewed and Electronically Signed By: Kerri Reyna MD 01/03/2021 15:53 Transcribed by: STEW 01/03/2021 15:49 Technologist: [facility] HISTORICAL RESULTS Kerri Reyna MD - 01/08/2021 [...] knee arthroplasty revision as detailed above. Ramy Angel thanks you for the opportunity to care for your patient. Workstation ID: [id number] - [id number] FINAL REPORT Dictated By: Kerri Reyna MD 01/03/2021 15:49 Assigned Physician: Kerri Reyna MD Reviewed and Electronically Signed By: Kerri Reyna MD 01/03/2021 15:53 Transcribed by: STEW 01/03/2021 15:49 Technologist: [facility] Radiology Study observation (narrative) [employer] XR KNEE 1-2 VIEWS LTOrdered By: Kerri Reyna on 01-03-2021 [employer] Work Phone: XR Knee 1-2 Views LTon 01-03 [...] Left knee arthroplasty revision as detailed above. [place] thanks you for the opportunity to care for your patient. Workstation ID: [id number] - [id number] FINAL REPORT Dictated By: Kerri Reyna MD 01/03/2021 15:49 Assigned Physician: Kerri Reyna MD Reviewed and Electronically Signed By: Kerri Reyna MD 01/03/2021 15:53 Transcribed by: STEW 01/03/2021 15:49 Technologist: DT Normal [facility] aPTT Coag (Bld) [Time]on aPTT Coag (PPP) [Time] 25.0 s Normal 23.2-34.6 [facility] Histopathology Requeston Relevant diagnostic tests/laboratory data Narrative SPECIMEN DESCRIPTION 1 LEFT KNEE RESULT SEE SEPARATE REPORT RESULT SEE NOTES REVIEW TAB FOR RESULTS ROUTINE LAB Report Date: 11/24/2020 05:51:32 Collect Date: 11/19/2020 13:56:00 Normal [facility] Basic metabolic 2000 panelon 11-22-2020 Calcium [Mass/Vol] 8.0 mg/dL Low 8.5-10.6 [facility] Chloride [Moles/Vol] 103 mmol/L Normal 98-107 Moun t [facility] CO2 [Moles/Vol] 29 mmol/L Normal 21-32 [facility] Creatinine [Mass/Vol] 1.09 mg/dL High 0.55-1.02 Arin nt [facility] Glucose [Mass/Vol] 93 mg/dL Normal 70-99 [facility] Potassium [Moles/Vol] 4.4 mmol/L Normal 3.5-5.1 [facility] [place] Sodium [Moles/Vol] 138 mmol/L Normal 136-145 [facility] Urea nitrogen (BldV) [Mass/Vol] 18 mg/dL Normal 7.0-18.0 [facility] Urea nitrogen/Creatinine [Mass ratio] 17 mg/mg Normal [facility] CBC W Auto Differential pane l (Bld)on 11-22-2020 Basophils (Bld) [#/Vol] 0.0 thou/mcL Normal 0.0-0.2 [facility] Basophils/100 WBC (Bld) 0.7 % Normal 0-3 [facility] Differential cell count method Nom (Bld) AUTOMATED DIFFERENTIAL Normal [facility] Eosinophils (Bld) [#/Vol] 0.2 thou/mcL Normal 0.0-0.4 [facility] Eosinophils/100 WBC (Bld) 3.5 % Normal 0-7 [facility] Erythrocyte distribution width (RBC) [Entitic vol] 14.3 % Normal 11.7-15.0 [facility] Hematocrit (Bld) [Volume fraction] 24.8 % Low 34.0-50.0 [facility] Hemoglobin (Bld) [Mass/Vol] 8.2 g/dL Low 11.5-17.0 [facility] Lymphocytes (Bld) [#/Vol] 1.1 thou/mcL Normal 0.7-4.5 [facility] Lymphocytes/100 WBC (Bld) 17.5 % Normal 14-46 [facility] MCH (RBC) [Entitic mass] 29.9 Picograms Normal 27.0-34.0 [facility] MCHC (RBC) [Mass/Vol] 33.0 g/dL Normal 32.0-36.0 [facility] MCV (RBC) [Entitic vol] 90.7 fL Normal 80-98 [facility] Monocytes (Bld) [#/Vol] 0.8 thou/mcL Normal 0.1-1.0 [facility] Monocytes/100 WBC (Bld) 13.0 % Normal 4-13 [facility] Neutrophils (Bld) [#/Vol] 4.2 thou/mcL Normal 1.5-7.8 [facility] Neutrophils/100 WBC (Bld) 65.3 % Normal 40-74 [facility] Platelet mean volume (Bld) [Entitic vol] 10.2 fL Normal 7.5-11.2 [facility] Platelets (Bld) [#/Vol] 176 thou/mcL Normal 140-415 [facility] RBC (Bld) [#/Vol] 2.74 x(10)6/mcL Low 3.80-5.60 Mo [facility] WBC (Bld) [#/Vol] 6.5 thou/mcL Normal 4.0-10.5 [facility] Coronavirus (COVID-19/SARS-C oV-2) RAPIDon 11-22-2020 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 The assay is validated for nasopharyngeal (QUALITY CONTROL MICROBIOLOGIST), nasal, and oropharyngeal (OP) direct swabs. The [...] Disease Control website: www.cdc.gov/coronavirus. Called to Jacquelyn 1500 11/22/20 [facility] Symptomatic as defined by CDC N Normal [facility] OR Nursingon 11-22-2020 OR Nursing Normal [facility] PT Coag (PPP) [Time]on 11-22 INR Coag (Bld) [Relative time] 1.4 {INR} Normal [facility] Comment on above: Result Comment: NOEMÍ NG [...] room and take this document with you. [facility] 11/22/20 14:48 [address] [place]. [address] PATIENT INFORMATION Name: TRINITY GODINEZ Address: [address] [place], [place] [address] Age: 65 Years Phone: [phone] : 1955 12:00 MRN: [facility])-[id number] Sex: Female Race: White Ethnicity: Not Hispan/Lat Admitted From: Clinic or [facility] Medical Service: Orthopedic Surgery Nurse Unit/Bed: (CO) 2N 0221-01 Admit Date: 11/19/2020 09:38 PCP: Levi Shine MD PHYSICIANS INVOLVED WITH CARE ------ Attending Physicians: Luis Quinn MD , Calos - Orthopaedic Surg Admitting Physician: Luis Quinn MD , Calos - Orthopaedic Surg Primary Care Physician:Levi Shine MD,[facility], - Consults: Shailesh VEGA , Grabiel Maciel - Infectious Disease Andrew VEGA , Jose E - Internal Medicine Mario VEGA , Trey E - Internal Medicine [facility], CHAUNA - Internal Medicine Angeles MD , [place] W - Internal Medicine FOLLOW-UP APPOINTMENTS: Provider: Specialty: Address: Date: Calos Smith Jr, MD Orthopaedic Surg [address] [facility] [address] [facility] [id number] (1) Three Weeks Comment: Call for an Appointment AND ANY QUESTIONS OR CONCERNS Provider: Specialty: Address: Date: Grabiel Hicks MD Infectious Disease [address] [facility] [phone] (1) Call for an Appointment Comment: 1) call soon for an appointment with Dr. Hicks in 4-5 weeks, 2) you will be on IV antibiotic until the time of your reimplantation, 3) every Sunday the nursing staff will collect blood work (CBC,SR,CRP,Creat, Vanco Trough) and fax to Dr. Hicks ([phone]), 4) call sooner for fever, chills, nausea, vomiting, diarrhea, rash, pain in your PICC arm or worsening condtion of your wound. Provider: Specialty: Address: Date: Levi Shine MD Family Practice [address] [id number] [phone] (1) Follow-up as needed Provider: Specialty: Address: Date: [facility] Follow-up as needed Comment: [place] IN [facility] [phone] ALLERGIES: NSAIDs : Reaction:Anaphylactic reaction Ancef : [...] doses are changed, or new medications (including socs-vpg-evwwehd products) are added. Ask your doctor if [...] CBC,SR,Creat,CRP, Vanco Trough, fax to Dr. Hicks [phone] 3)IV ATB UNTIL reimplant 4)Call Dr. Hicks [...] Insomnia/Sleep. T (more content not included)... Normal [facility] Prothrombin Timeon PT Coag (PPP) [Time] 16.9 s High 11.9-14.6 Moun t [facility] Vancomycin [Moles/Vol]on Vancomycin random [Mass/Vol] 28.3 ZZ Normal 10.0-50.0 [facility] Basic metabolic 2000 panelon 11-21-2020 Calcium [Mass/Vol] 8.2 mg/dL Low 8.5-10.6 [facility] Chloride [Moles/Vol] 106 mmol/L Normal 98-107 Moun t [facility] CO2 [Moles/Vol] 29 mmol/L Normal 21-32 [facility] Creatinine [Mass/Vol] 1.07 mg/dL High 0.55-1.02 Arin nt [facility] Glucose [Mass/Vol] 94 mg/dL Normal 70-99 [facility] Potassium [Moles/Vol] 4.3 mmol/L Normal 3.5-5.1 [facility] Sodium [Moles/Vol] 141 mmol/L Normal 136-145 [facility] Urea nitrogen (BldV) [Mass/Vol] 18 mg/dL Normal 7.0-18.0 [facility] Urea nitrogen/Creatinine [Mass ratio] 17 mg/mg Normal [facility] CBC W Auto Differential pane l (Bld)on 11-21-2020 Basophils (Bld) [#/Vol] 0.0 thou/mcL Normal 0.0-0.2 [facility] Basophils/100 WBC (Bld) 0.7 % Normal 0-3 [facility] Differential cell count method Nom (Bld) AUTOMATED DIFFERENTIAL Normal [facility] Eosinophils (Bld) [#/Vol] 0.1 thou/mcL Normal 0.0-0.4 [facility] Eosinophils/100 WBC (Bld) 1.6 % Normal 0-7 [facility] Lymphocytes (Bld) [#/Vol] 1.3 thou/mcL Normal 0.7-4.5 [facility] Lymphocytes/100 WBC (Bld) 18.7 % Normal 14-46 [facility] Monocytes (Bld) [#/Vol] 0.8 thou/mcL Normal 0.1-1.0 [facility] Monocytes/100 WBC (Bld) 12.1 % Normal 4-13 [facility] Neutrophils (Bld) [#/Vol] 4.6 thou/mcL Normal 1.5-7.8 [facility] Neutrophils/100 WBC (Bld) 66.9 % Normal 40-74 [facility] Erythrocyte distribution width (RBC) [Entitic vol] 14.6 % Normal 11.7-15.0 [facility] Hematocrit (Bld) [Volume fraction] 25.9 % Low 34.0-50.0 [facility] Hemoglobin (Bld) [Mass/Vol] 8.5 g/dL Low 11.5-17.0 [facility] MCH (RBC) [Entitic mass] 29.8 Picograms Normal 27.0-34.0 [facility] MCHC (RBC) [Mass/Vol] 32.8 g/dL Normal 32.0-36.0 [facility] [place] MCV (RBC) [Entitic vol] 90.9 fL Normal 80-98 [facility] Platelet mean volume (Bld) [Entitic vol] 9.9 fL Normal 7.5-11.2 [facility] Platelets (Bld) [#/Vol] 181 thou/mcL Normal 140-415 [facility] RBC (Bld) [#/Vol] 2.85 x(10)6/mcL Low 3.80-5.60 Mo [facility] WBC (Bld) [#/Vol] 7.0 thou/mcL Normal 4.0-10.5 [facility] PT Coag (PPP) [Time]on 11-21 INR Coag (Bld) [Relative time] 1.4 {INR} Normal [facility] Comment on above: Result Comment: NOEMÍ GOMEZ THE INDUCTION PHASE OF ORAL ANTICOAGULATION, THE INR MAY NOT REFLECT THE ANTICOAGULANT STATUS OF THE PATIENT. THERAPEUTIC RANGES FOR INR'S ARE: MOST CLINICAL SITUATIONS: INR 2.0-3.0 MECHANICAL PROSTHETIC VALVES: INR 2.5-3.5 CRITICAL: INR 5.0 Prothrombin Timeon PT Coag (PPP) [Time] 17.1 s High 11.9-14.6 [facility] Basic metabolic 2000 panelon 11-20-2020 Calcium [Mass/Vol] 8.3 mg/dL Low 8.5-10.6 [facility] Chloride [Moles/Vol] 104 mmol/L Normal 98-107 [facility] CO2 [Moles/Vol] 24 mmol/L Normal 21-32 [facility] Creatinine [Mass/Vol] 0.97 mg/dL Normal 0.55-1.02 [facility] [place] Glucose [Mass/Vol] 126 mg/dL High 70-99 [facility] Potassium [Moles/Vol] 4.4 mmol/L Normal 3.5-5.1 [facility] [place] Sodium [Moles/Vol] 139 mmol/L Normal 136-145 [facility] Urea nitrogen (BldV) [Mass/Vol] 18 mg/dL Normal 7.0-18.0 [facility] Urea nitrogen/Creatinine [Mass ratio] 19 mg/mg Normal [facility] CBC W Auto Differential pane l (Bld)on 11-20-2020 Basophils (Bld) [#/Vol] 0.0 thou/mcL Normal 0.0-0.2 [facility] Basophils/100 WBC (Bld) 0.2 % Normal 0-3 [facility] Differential cell count method Nom (Bld) AUTOMATED DIFFERENTIAL Normal [facility] Eosinophils (Bld) [#/Vol] 0.0 thou/mcL Normal 0.0-0.4 [facility] Eosinophils/100 WBC (Bld) 0.0 % Normal 0-7 [facility] Lymphocytes (Bld) [#/Vol] 0.9 thou/mcL Normal 0.7-4.5 [facility] Lymphocytes/100 WBC (Bld) 9.1 % Low 14-46 [facility] Monocytes (Bld) [#/Vol] 0.9 thou/mcL Normal 0.1-1.0 [facility] Monocytes/100 WBC (Bld) 9.2 % Normal 4-13 [facility] Neutrophils (Bld) [#/Vol] 7.8 thou/mcL Normal 1.5-7.8 [facility] Neutrophils/100 WBC (Bld) 81.5 % High 40-74 [facility] Erythrocyte distribution width (RBC) [Entitic vol] 14.7 % Normal 11.7-15.0 [facility] Hematocrit (Bld) [Volume fraction] 30.7 % Low 34.0-50.0 [facility] Hemoglobin (Bld) [Mass/Vol] 10.2 g/dL Low 11.5-17.0 [facility] MCH (RBC) [Entitic mass] 30.3 Picograms Normal 27.0-34.0 [facility] MCHC (RBC) [Mass/Vol] 33.3 g/dL Normal 32.0-36.0 [facility] [place] MCV (RBC) [Entitic vol] 90.9 fL Normal 80-98 [facility] Platelet mean volume (Bld) [Entitic vol] 11.1 fL Normal 7.5-11.2 [facility] Platelets (Bld) [#/Vol] 246 thou/mcL Normal 140-415 [facility] RBC (Bld) [#/Vol] 3.38 x(10)6/mcL Low 3.80-5.60 Mo [facility] WBC (Bld) [#/Vol] 9.5 thou/mcL Normal 4.0-10.5 [facility] PT Coag (PPP) [Time]on 11-20 INR Coag (Bld) [Relative time] 1.0 {INR} Normal [facility] Comment on above: Result Comment: NOEMÍ GOMEZ THE INDUCTION PHASE OF ORAL ANTICOAGULATION, THE INR MAY NOT REFLECT THE ANTICOAGULANT STATUS OF THE PATIENT. THERAPEUTIC RANGES FOR INR'S ARE: MOST CLINICAL SITUATIONS: INR 2.0-3.0 MECHANICAL PROSTHETIC VALVES: INR 2.5-3.5 CRITICAL: INR 5.0 Prothrombin Timeon PT Coag (PPP) [Time] 13.6 s Normal 11.9-14.6 [facility] Anesthesia Recordon 11-20-19 Anesthesia Record Patient: TRINITY GODINEZ MRN: [facility])-[id number] Age: 65 years Sex: Female : 1955 Associated Diagnoses: None Author: Angel Wyatt MD Procedure Time Out Stem Protocol: patient identity verified, site verified, side verified, procedure to be done verified, patient position verified. REGIONAL ANESTHESIA PROCEDURE Procedure date and begin time: Peripheral nerve block. Procedure date and end time: See nursing notes. Performed by: Angel Wyatt MD. Assisted by: no assistant curator. Informed consent: signed by patient. Technique: Peripheral [...] Diagnosis Preoperative Diagnosis: Postoperative Diagnosis: . Normal [facility] Culture Aerobicon 11-19-2020 Bacteria identified Aer cx Nom (Unsp spec) [facility] Microbiology PROCEDURE: Culture Aerobic SOURCE: Tissue BODY [...] NO EPITHELIALS SEEN, NO ORGANISMS SEEN Normal [facility] Comment on above: Performed By: #### 6 34-6 ####[address] Bacteria identified Aer cx Nom (Unsp spec) [facility] Microbiology PROCEDURE: Culture Aerobic SOURCE: Tissue BODY [...] POLYS RARE EPIS NO ORGANISMS SEEN Normal [facility] Comment on above: Performed By: #### 6 34-6 ####[address] Bacteria identified Aer cx Nom (Unsp spec) [facility] Microbiology PROCEDURE: Culture Aerobic SOURCE: Tissue BODY [...] POLYS No Epithelials NO ORGANISMS SEEN Normal [facility] Comment on above: Performed By: #### 6 34-6 ####[facility] [address] [place] [address] Bacteria identified Aer cx Nom (Unsp spec) [facility] Microbiology PROCEDURE: Culture Aerobic SOURCE: Tissue BODY [...] POLYS No Epithelials NO ORGANISMS SEEN Normal [facility] Comment on above: Performed By: #### 6 34-6 ####[address] Culture Anaerobicon 11-20-19 21 Bacteria identified Anaer cx Nom (Unsp spec) [facility] Microbiology PROCEDURE: Culture Anaerobic SOURCE: Tissue BODY [...] EDT CONTRIBUTOR_SYSTEM, CO_PN CULTURE IN PROGRESS Normal [facility] Comment on above: Performed By: #### 6 35-3 ####[address] Bacteria identified Anaer cx Nom (Unsp spec) [facility] Microbiology PROCEDURE: Culture Anaerobic SOURCE: Tissue BODY [...] 20:36 EDT CONTRIBUTOR_SYSTEM, CO_PN CULTURE IN PROGRESS [facility] Comment on above: Performed By: #### 6 35-3 ####[address] Bacteria identified Anaer cx Nom (Unsp spec) [facility] Microbiology PROCEDURE: Culture Anaerobic SOURCE: Tissue BODY [...] 20:36 EDT CONTRIBUTOR_SYSTEM, CO_PN CULTURE IN PROGRESS [facility] Comment on above: Performed By: #### 6 35-3 ####[address] Bacteria identified Anaer cx Nom (Unsp spec) [facility] Microbiology PROCEDURE: Culture Anaerobic SOURCE: Tissue BODY [...] 20:36 EDT CONTRIBUTOR_SYSTEM, CO_PN CULTURE IN PROGRESS [facility] Comment on above: Performed By: #### 6 35-3 ####[place] [id number] [place], [place] Culture Funguson 11-19-2020 Fungus identified Cx Nom (Unsp spec) [facility] Microbiology PROCEDURE: Culture Fungus SOURCE: Tissue BODY [...] CULTURE WILL BE HELD FOR 1-4 WEEKS [facility] Comment on above: Performed By: #### 5 80-1 ####[address] Fungus identified Cx Nom (Unsp spec) [facility] Microbiology PROCEDURE: Culture Fungus SOURCE: Tissue BODY [...] CULTURE WILL BE HELD FOR 1-4 WEEKS [facility] Comment on above: Performed By: #### 5 80-1 ####[address] Fungus identified Cx Nom (Unsp spec) [facility] Microbiology PROCEDURE: Culture Fungus SOURCE: Tissue BODY [...] CULTURE WILL BE HELD FOR 1-4 WEEKS [facility] Comment on above: Performed By: #### 5 80-1 ####[address] Fungus identified Cx Nom (Unsp spec) [facility] Microbiology PROCEDURE: Culture Fungus SOURCE: Tissue BODY [...] CULTURE WILL BE HELD FOR 1-4 WEEKS [facility] Comment on above: Performed By: #### 5 80-1 ####[facility] [address] [place], [place] PACU I Nursingon 11-19-2020 PACU I Nursing CO NA PACU I Nursing Record Summary Primary Physician: Calos Smith Jr, MD Finalized Date/Time: 11/19/20 18:19:26 Pt. Name: TIRNITY GODINEZ/Sex: 1955 Female Med Rec #: [id number] Physician: Calos Smith Jr, MD Financial #: [id number] Pt. Type: I Room/Bed: / Admit/Disch: 11/19/20 [...] By: Teresita Franco RN 11/19/20 18:19 Normal [facility] PreOp Nursingon 11-19-2020 PreOp Nursing CO NA PreOp Nursing Record Summary Primary Physician: Calos Smith Jr, MD Finalized Date/Time: 11/19/20 13:09:57 Pt. Name: TRINITY GODINEZ/Sex: 1955 Female Med Rec #: [id number] Physician: Calos Smith Jr, MD Financial #: [id number] Pt. Type: I Room/Bed: / Admit/Disch: 11/19/20 [...] By: Cortes Mcclain RN 11/19/20 13:09 Normal [facility] Surgical Pathology Final Rep tom 11-19-2020 Pathology study TRINITY GODINEZ ([id number] [id number] F [id number] /[id number] ORDERING PHYSICIAN: CALOS SMITH 00 [...] cut surface is rogers-pink, soft and homogeneous. News Camera Operator sections are submitted in block (A1). (RS/1C/MS/RT) Gross examination was performed at [facility]. AJB:SK 11/22/20 By: LICHA ZEPEDA M.D. (Electronic Signature) MICROSCOPIC: The technical component was performed at [facility], [address] [place] [address]. Microscopic examination was performed. Case resulted at [facility]. 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 NOTE: There is no significant perivascular lymphocytic inflammation. JH2:JH2:JH208 END OF REPORT END OF REPORT Normal [facility] XR Knee 1-2 Views LTon 11-19 XR [...] is present. Anterior skin elvira are noted. [facility] thanks you for the opportunity to care for your patient. Workstation ID: [id number] FINAL REPORT Dictated By: Abdias Morejon MD 11/19/2020 16:54 Assigned Physician: Abdias Morejon MD Reviewed and Electronically Signed By: Abdias Morejon MD 11/19/2020 16:56 Transcribed by: STEW 11/19/2020 16:54 Technologist: BASIL Amador [facility] PreOp Nursingon 11-18-2020 PreOp Nursing CO NA PreOp Nursing Record Summary Primary Physician: Calos Smith Jr, MD Finalized Date/Time: 11/18/20 15:01:45 Pt. Name: GRETCHEN TRINITYTHERESE Viveros/Sex: 1955 Female Med Rec #: [id number] Physician: Calos Smith Jr, MD Financial #: [id number] Pt. Type: I Room/Bed: / Admit/Disch: 11/17/20 [...] Signed By: Deisi Wu RN 11/18/20 15:01 Normal [facility] PT Coag (PPP) [Time]on 11-17 INR Coag (Bld) [Relative time] 1.1 {INR} Normal [facility] Comment on above: Result Comment: NOEMÍ NG THE INDUCTION PHASE OF ORAL ANTICOAGULATION, THE INR MAY NOT REFLECT THE ANTICOAGULANT STATUS OF THE PATIENT. THERAPEUTIC RANGES FOR INR'S ARE: MOST CLINICAL SITUATIONS: INR 2.0-3.0 MECHANICAL PROSTHETIC VALVES: INR 2.5-3.5 CRITICAL: INR 5.0 Prothrombin Timeon PT Coag (PPP) [Time] 14.1 s Normal 11.9-14.6 [facility] aPTT Coag (Bld) [Time]on aPTT Coag (PPP) [Time] 25.4 s Normal 23.2-34.6 [facility] Basic metabolic 2000 panelon 11-15-2020 Calcium [Mass/Vol] 9.7 mg/dL Normal 8.5-10.6 [facility] Chloride [Moles/Vol] 100 mmol/L Normal 98-107 [facility] CO2 [Moles/Vol] 26 mmol/L Normal 21-32 [facility] Creatinine [Mass/Vol] 1.25 mg/dL High 0.55-1.02 [facility] [place] Glucose [Mass/Vol] 79 mg/dL Normal 70-99 [facility] Potassium [Moles/Vol] 4.0 mmol/L Normal 3.5-5.1 [facility] [place] Sodium [Moles/Vol] 137 mmol/L Normal 136-145 [facility] Urea nitrogen (BldV) [Mass/Vol] 31 mg/dL High 7.0-18.0 [facility] Urea nitrogen/Creatinine [Mass ratio] 25 mg/mg Normal [facility] Blood type and Indirect anti body screen panel (Bld)on 11-15-2020 Blood group antibody screen Ql Negative Normal NEG [facility] Rh Nom (Bld) Positive Normal [facility] C-Reactive Proteinon 021 CRP [Mass/Vol] 5.1 mg/L Normal 0.0-9.0 [facility] CBC W Auto Differential pane l (Bld)on 11-15-2020 Basophils (Bld) [#/Vol] 0.1 thou/mcL Normal 0.0-0.2 [facility] Basophils/100 WBC (Bld) 1.3 % Normal 0-3 [facility] Differential cell count method Nom (Bld) AUTOMATED DIFFERENTIAL Normal [facility] Eosinophils (Bld) [#/Vol] 0.2 thou/mcL Normal 0.0-0.4 [facility] Eosinophils/100 WBC (Bld) 2.7 % Normal 0-7 [facility] Erythrocyte distribution width (RBC) [Entitic vol] 15.2 % High 11.7-15.0 [facility] Hematocrit (Bld) [Volume fraction] 38.1 % Normal 34.0-50.0 [facility] Hemoglobin (Bld) [Mass/Vol] 12.5 g/dL Normal 11.5-17.0 [facility] Lymphocytes (Bld) [#/Vol] 1.8 thou/mcL Normal 0.7-4.5 [facility] Lymphocytes/100 WBC (Bld) 21.9 % Normal 14-46 [facility] MCH (RBC) [Entitic mass] 30.0 Picograms Normal 27.0-34.0 [facility] MCHC (RBC) [Mass/Vol] 32.9 g/dL Normal 32.0-36.0 [facility] MCV (RBC) [Entitic vol] 91.3 fL Normal 80-98 [facility] Monocytes (Bld) [#/Vol] 0.5 thou/mcL Normal 0.1-1.0 [facility] Monocytes/100 WBC (Bld) 6.6 % Normal 4-13 [facility] Neutrophils (Bld) [#/Vol] 5.5 thou/mcL Normal 1.5-7.8 [facility] Neutrophils/100 WBC (Bld) 67.5 % Normal 40-74 [facility] Platelet mean volume (Bld) [Entitic vol] 9.9 fL Normal 7.5-11.2 [facility] Platelets (Bld) [#/Vol] 314 thou/mcL Normal 140-415 [facility] RBC (Bld) [#/Vol] 4.17 x(10)6/mcL Normal 3.80-5.60 Mo [facility] WBC (Bld) [#/Vol] 8.1 thou/mcL Normal 4.0-10.5 [facility] PT Coag (PPP) [Time]on 11-15 INR Coag (Bld) [Relative time] 1.5 {INR} Normal [facility] Comment on above: Result Comment: DURI NG THE INDUCTION PHASE OF ORAL ANTICOAGULATION, THE INR MAY NOT REFLECT THE ANTICOAGULANT STATUS OF THE PATIENT. THERAPEUTIC RANGES FOR INR'S ARE: MOST CLINICAL SITUATIONS: INR 2.0-3.0 MECHANICAL PROSTHETIC VALVES: INR 2.5-3.5 CRITICAL: INR 5.0 Prothrombin Timeon PT Coag (PPP) [Time] 17.7 s High 11.9-14.6 [facility] Sedimentation Rate rbcon ESR (Bld) [Velocity] 52 mm/h High 0-30 [facility] aPTT Coag (Bld) [Time]on aPTT Coag (PPP) [Time] 27.8 s Normal 23.2-34.6 [facility] Prothrombin Time INRon 11-08 INR Coag (PPP) [Relative time] 1.4 {INR} Normal [facility] Comment on above: Result [...] heart valves: 3 - 4.5 PERFORMED BY: [place] [address] PATHOLOGIST CUSTODIAL AIDE JEFFREY GEIGER M.D. Performed By: #### P T #### [facility] [address] [place] [address] PT Coag (PPP) [Time] 15.5 s High 9.0-12.9 [facility] Comment on above: Performed By: #### P T #### [facility] [address] [place] [address] Consultation Noteon 08-24-19 Consultation Note [id number]. 00CD:127 Normal [facility] [place] [facility] Operative Reporton Operative Report [id number] .00CD:127 Normal [facility] [place] [facility] Pathology Noteon 08-23-2020 Pathology Note [id number] .00CD:127 Normal [facility] [place] [facility] Consultation Noteon 08-20-19 Consultation Note [id number] .00CD:127 [facility] Facesheeton 08-19-2020 Facesheet [id number] .00CD:127 [facility] Vital Signs Date Time Vital Sign Value Performing Clinician Faci lity 04-22-2022 11:44-0500 Body temperature 99.1 [degF] aClos Smith MD Work Phone: [employer] 04-22-2022 11:44-0500 Diastolic blood pressure 62 mm[Hg] Calos Smith MD Work Phone: [employer] 04-22-2022 11:44-0500 Heart rate 90 /min Calos Smith MD Work Phone: [facility] 04-22-2022 11:44-0500 Respiratory rate 12 /min Calos Smith MD Work Phone: [employer] 04-22-2022 11:44-0500 SaO2% (BldA) [Mass fraction] 92 % Calos Smith MD Work Phone: [employer] 04-22-2022 11:44-0500 Systolic blood pressure 109 mm[Hg] Calos Smith MD Work Phone: [employer] 04-20-2022 12:25-0500 Body height 172.7 cm Calos Smith MD Work Phone: [employer] 04-20-2022 12:25-0500 Body mass index (BMI) [Ratio] 27.12 kg/m2 Calos Smith MD Work Phone: [employer] 04-20-2022 12:25-0500 Body weight 80.9 kg Calos Smith MD Work Phone: [employer] 01-06-2022 10:05-0400 Diastolic blood pressure 63 mm[Hg] Calos Smith MD Work Phone: [employer] 01-06-2022 10:05-0400 Heart rate 84 /min Calos Smith MD Work Phone: [employer] 01-06-2022 10:05-0400 Systolic blood pressure 111 mm[Hg] Calos Smith MD Work Phone: [employer] 01-06-2022 07:55-0400 SaO2% (BldA) [Mass fraction] 96 % Calos Smith MD Work Phone: [employer] 01-06-2022 07:52-0400 Body temperature 97 [degF] Calos Smith MD Work Phone: [employer] 01-06-2022 04:28-0400 Respiratory rate 12 /min Calos Smith MD Work Phone: [employer] 01-03-2022 07:10-0400 Body height 172.7 cm Calos Smith MD Work Phone: [employer] 01-03-2022 07:10-0400 Body mass index (BMI) [Ratio] 27.05 kg/m2 Calos Smith MD Work Phone: [employer] 01-03-2022 07:10-0400 Body weight 80.7 kg Calos Smith MD Work Phone: [employer] 01-08-2021 09:00-0400 SaO2% (BldA) [Mass fraction] 93 % Calos Smith MD Work Phone: [employer] 01-08-2021 08:12-0400 Body temperature 97.2 [degF] Calos Smith MD Work Phone: [employer] 01-08-2021 08:12-0400 Diastolic blood pressure 83 mm[Hg] Calos Smith MD Work Phone: [employer] 01-08-2021 08:12-0400 Heart rate 76 /min Calos Smith MD Work Phone: [employer] 01-08-2021 08:12-0400 Respiratory rate 12 /min Calos Smith MD Work Phone: [employer] 01-08-2021 08:12-0400 Systolic blood pressure 125 mm[Hg] Calos Smith MD Work Phone: [employer] 01-06-2021 13:37-0400 Body height 175.3 cm Calos Smith MD Work Phone: [employer] Comment on above: Pt reported 01-06-2021 13:37-0400 Body mass index (BMI) [Ratio] 30.41 kg/m2 Calos Smith MD Work Phone: [employer] 01-06-2021 13:37-0400 Body weight 93.4 kg Calos Smith MD Work Phone: [employer] Comment on above: Actual Encounters Encounter Date Encounter Type Care Provider Facility Start: 02-19-2023 ambulatory BRITTANY WOOD [facility] Start: 08-26-2022 End: 08-30-[address] LEVI SHINE . Facility:[facility] Start: 08-25-[address] LEVI SIHNE . Facili ty:[facility] Start: 08-23-2022 End: 08-23-2022 ambulatory JACKY HOWELL Facility:[facility] Start: 08-22-[address] LEVI SHINE . Facili ty:[facility] Start: 08-01-2022 End: 08-02-[address] LEVI SHINE . Facility:[facility] Start: 05-22-2022 End: 05-23-[address] LEVI SHINE . Facility:[facility] Start: 05-04-2022 ambulatory BRITTANY WOOD [facility] Start: 05-03-2022 ambulatory BRITTANY EMMEL [facility] Start: 05-02-2022 ambulatory LEVI SHINE [facility] Start: 05-01-2022 ambulatory LEVI SHINE [facility] Start: 04-30-2022 ambulatory [facility] Start: 04-29-2022 ambulatory [facility] Start: 04-29-2022 Encounter for genera l adult medical examination without abnormal findings [facility] Start: 04-28-2022 ambulatory LEVI SHINE [facility] Start: 04-27-2022 ambulatory LEVI SHINE [facility] Start: 04-26-2022 ambulatory LEVI SHINE [facility] Start: 04-25-2022 ambulatory LEVI SHINE [facility] Start: 04-24-2022 ambulatory [facility] Start: 04-23-2022 ambulatory [facility] Start: 04-20-2022 End: 04-22-2022 Evaluation and management of inpatient LEVI SHINE [facility] Start: 04-20-2022 End: 04-22-2022 Evaluation and management of inpatient Calos Smith MD Work Phone: [facility] Comment on above: 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 Facility:[facility] Start: 02-14-[address] LEVI SHINE . Facili ty:[facility] Start: 01-31-2022 End: 03-01-2022 ambulatory SHAIKH Raheem FOWLER Facility:[facility] Start: 01-05-2022 Encounter for preprocedural laboratory examination DR LEVI SHINE . [facility] Start: 01-03-2022 End: 01-06-2022 Evaluation and management of inpatient Calos Smith MD Work Phone: [facility] Start: 01-03-2022 End: 01-06-2022 Subsequent hospital visit by physician Calos Smith MD Work Phone: [facility] Start: 01-02-2022 End: 01-03-[address] LEVI SHINE . Facility:[facility] Start: 01-02-2022 End: 01-03-2022 Encounter for preprocedural laboratory examination DR LEVI SHINE . Facility:[facility] Start: 12-31-2021 ambulatory SHAIKH Raheem MALCOLM Facilit y: Start: 12-12-2021 End: 12-14-[address] LEVI SHINE . Facility:[facility] Start: 10-21-2021 End: 10-22-[address] LEVI SHINE . Facility: Start: 01-11-2021 ambulatory CALOS SMITH JR. Fac ility:[facility] Start: 01-03-2021 End: 01-08-2021 Evaluation and management of inpatient Calos Smith MD Work Phone: [facility] Start: 05-18-2020 End: 06-17-2020 ambulatory KARAN SULLIVAN Facility:[facility] Start: 05-12-2020 End: 05-27-2020 ambulatory KARAN SULLIVAN Facility:[facility] Procedures Date Procedure Procedure Detail Performing Clinician Start: 04-22-2022 Sars-cov-2 detection by dna/rna Simone Waddell MD Work Phone: Start: 04-22-2022 Prothrombin time Dominguez Waddell MD Work Phone: Start: 04-22-2022 Basic metabolic pane l calcium total Trey Martin MD Work Phone: Start: 04-21-2022 PULSE OXIMETRY, CONTINUOUS Trey Martin MD Work Phone: Start: 04-21-2022 Basic metabolic pane l calcium total Trey E Mario MD Work Phone: Start: 04-20-2022 PULSE OXIMETRY, [...] above: Performed By: #### 3 4532-2 #### RAMY ANGEL [facility] [address] [place] [address] Start: 01-05-2022 Prothrombin time Chong Hsieh MD Work Phone: Start: 01-05-2022 PULSE OXIMETRY, CONTINUOUS Chong Hsieh MD Work Phone: Start: 01-05-2022 Basic metabolic pane l calcium total Chong Hsieh MD Work Phone: Start: 01-05-2022 CBC W Auto Different ial panel - Blood Chong sHieh MD Work Phone: Start: 01-04-2022 PULSE OXIMETRY, [...] Tdap) DTaP,Tdap,and Td Vaccines (2 - Tdap) [facility] Start: 04-22-2023 Hypertension/CHF/CAD Annual BMP Blood Test Hypertension/CHF/CAD Annual BMP Blood Test [facility] Start: 01-05-2023 Hypertension/CHF/CAD Annual BMP Blood Test Hypertension/CHF/CAD Annual BMP Blood Test [facility] Start: 12-01-2021 Influenza vaccination Influenza Vacc ine (#1) [facility] Start: 08-19-2021 COVID-19 Vaccine (4 - Booster for Pfizer series) COVID-19 Vaccine (4 - Booster for Pfizer series) [facility] Start: 01-16-2021 COVID-19 Vaccine (3 - Booster for Pfizer series) COVID-19 Vaccine (3 - Booster for Pfizer series) [facility] Start: 12-20-2020 Hypertension/CHF/CAD Annual BMP Blood Test Hypertension/CHF/CAD Annual BMP Blood Test [facility] Start: 12-15-2020 Adolescent depressio n screening assessment Depression Screening [facility] Start: 12-15-2020 Depression Screening Depression Scre ening [facility] Start: 12-15-2020 Hepatitis C screening Hepatitis C Sc reening [facility] Start: 12-15-2020 HIV screening HIV Screening [facility] Start: 12-15-2020 Lipid panel Cholesterol Sc reening (Lipid Panel) [facility] Start: 12-15-2020 Medicare Annual Well ness Visit Medicare Annual Wellness Visit [facility] Start: 12-15-2020 Screening for malign ant neoplasm of breast Breast Cancer Screening [facility] Start: 12-15-2020 Screening for malign ant neoplasm of colon Colorectal Cancer Screening: Colonoscopy [facility] Start: 12-15-2020 Screening for malign ant neoplasm of lung Lung Cancer Screening (Low Dose CT) [facility] Start: 12-15-2020 Social Influencers o f Health Screening Social Influencers of Health Screening [facility] Start: 12-01-2020 Influenza vaccination Influenza Vacc ine (#1) [facility] Start: 02-01-2016 Pneumococcal Vaccine : Pediatrics (0 to 5 Years) and At-Risk Patients (6 to 64 Years) (2 - PCV) Pneumococcal Vaccine: Pediatrics (0 to 5 Years) and At-Risk Patients (6 to 64 Years) (2 - PCV) [facility] Start: 2007 Zoster Vaccines (1 of 2) Zoster Vacc ngozi (1 of 2) [facility] Start: 1978 Screening for malign ant neoplasm of cervix Cervical Cancer Screening: Pap Smear [facility] Start: 1976 DTaP,Tdap,and Td Vac cines (1 - Tdap) DTaP,Tdap,and Td Vaccines (1 - Tdap) [facility] Start: 1957 Hepatitis B Vaccines (1 of 3 - 3-dose series) Hepatitis B Vaccines (1 of 3 - 3-dose series) [facility] Bacteria identified in Tissue by Culture Culture tissue with gram stain Microbiology Routine 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, initial encounter ([facility]) 04/20/2022 2:13 PM EST [facility] Bacteria identified in Unspecified specimen by Anaerobe culture [facility] Work Phone: Bacteria identified in Unspecified specimen by Sterile body fluid culture Culture body fluid with gram stain Microbiology Routine 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, initial encounter ([facility]) 04/20/2022 2:10 PM EST [employer] End: 01-08-2021 Communication order: Respiratory Communication order: Respiratory Respiratory Care Routine Once for 1 Occurrences starting 01/08/2021 until 01/08/2021 [facility] Comment on above: Once for 1 Occurrenc es starting 01/08/2021 until 01/08/2021 Fungus identified in Skin by Culture [facility] Incentive spirometry RT Incentiv e spirometry RT Respiratory Care Routine Daily until discontinued starting 01/08/2021 [facility] Comment on above: Daily until disconti nued starting 01/08/2021 Mycobacterium sp identified in Unspecified specimen by Organism specific culture [facility] End: 01-13-2021 Prothrombin time (PT) Prothrombin time with INR Lab Routine Daily for 6 Days starting 01/08/2021 until 01/13/2021, 1 completed [facility] Work Phone: Comment on above: Daily for 6 Days sta rting 01/08/2021 until 01/13/2021, 1 completed Immunizations Immunization Date Immunization Notes Care Provider Addie booth 02-10-2021 influenza virus vacc ine, unspecified formulation Calos Smith MD Work Phone: [facility] 01-03-2020 influenza virus vacc ine, unspecified formulation Calos Smith MD Work Phone: [facility] Payers Date Payer Category Payer Medicare MEDICARE MEDICAR E RAILROAD [id number] 2015-Present [address] [address] [place] [address] Medicare [id number] 2015 Medicare MEDICARE MEDICAR E RAILROAD [id number] 2015-Present [address] [address] [place] [address] Medicare [id number] 1959 Medicare [id number] 1959 Private Health Insurance [id number] 1957 Unknown [id number] 2.16.840.1.413160.3.579.2 .647 1957 Unknown [id number] 2.16.840.1.870159.3.579.2 .647 1957 Unknown [id number] 2.16.840.1.226988.3.579.2 .593 1957 Unknown [id number] 2.16.840.1.882472.3.579.2 .593 1957 Unknown [id number] 2.16.840.1.383834.3.579.2 .593 1957 Unknown [id number] 2.16.840.1.449435.3.579.2 .593 1957 Unknown [id number] 2.16.840.1.905892.3.579.2 .593 1957 Unknown [id number] 2.16.840.1.284360.3.579.2 .593 1957 Unknown [id number] 2.16.840.1.933361.3.579.2 .593 1957 Unknown [id number] 2.16.840.1.278209.3.579.2 .593 1957 Unknown [id number] 2.16.840.1.359489.3.579.2 .593 1957 Unknown [id number] 2.16.840.1.320317.3.579.2 .593 1957 Unknown [id number] 2.16.840.1.991116.3.579.2 .593 1957 Unknown [id number] 2.16.840.1.190434.3.579.2 .593 1957 Unknown [id number] 2.16.840.1.846128.3.579.2 .593 1957 Unknown [id number] 2.16.840.1.201061.3.579.2 .114 1957 Unknown [id number] 2.16.840.1.854649.3.579.2 .114 1957 Unknown [id number] 2.16.840.1.734286.3.579.2 .114 1957 Unknown [id number] 2.16.840.1.591836.3.579.2 .114 1957 Unknown [id number] 2.16.840.1.667405.3.579.2 .114 1957 Unknown [id number] 2.16.840.1.332959.3.579.2 .114 1957 Unknown [id number] 2.16.840.1.525853.3.579.2 .114 1957 Unknown [id number] 2.16.840.1.760773.3.579.2 .114 1957 Unknown [id number] 2.16.840.1.929317.3.579.2 .1143 1957 Unknown [id number] 2.16.840.1.875302.3.579.2 .1143 1957 Unknown [id number] 2.16.840.1.841306.3.579.2 .1143 Social History Date Type Detail Facility Tobacco smoking stat [facility] Unknown if ever smoked [facility] Start: 1955 Sex Assigned At Not on file T [facility] Start: 12-30-2021 Tobacco smoking stat [facility] Ex-smoker [facility] End: 08-31-2021 History of tobacco use Current smoker [facility] End: 08-31-2021 History of tobacco use Cigarette Smoker [facility] Start: 12-30-2021 Tobacco use and exposure Smokeless t obacco non-user [facility] Start: 01-03-2022 End: 04-20-2022 Alcohol intake Lifetime non-drinker (finding) [facility] Start: 12-24-2021 End: 04-20-2022 Exposure to SARS-CoV-2 (event) Not sure [facility] Medical Equipment Procedure Code Equipment Code Equipment Origin al Text Equipment Identifier Dates Cement Bone Biom et R 1x40 [facility] - [id number] [id number])[id number], [id number] [facility] Start: 01-03-2022 Knee Tib Brg Ant Stbl [id number] - [facility] - [id number] ()[id number] [id number] 1)[id number], [id number] [facility] Start: 01-03-2022 Clinical Notes 11-17-2020 to 04-22-2022 Gautam Mane RN - 04/22/2022 10:48 AM Hamlet Agudelo RN - 04/22/2022 10:12 AM Albania Mane RN - 04/22/2022 9:48 AM Albania Mane RN - 04/22/2022 9:14 AM Nova Royal MD [...] picking her up around 12-12:30. Delroy at [facility] updated pt to arrive around 1. NN spoke with Delroy at [facility]. They can accept the pt today. No HENS needed. Pt will need a covid test [phone] [phone] Delroy will need updated with a transport [...] Clarity 04/20/2022 Hazy Body Fluid Color 04/20/2022 Lima Body Fluid RBC 04/20/2022 25,000 Body Fluid [...] 04/20/2022 16:06 Post-op Progress Note Subjective Procedure: ND RECONSTR DISLOCATING PATELLA W EXT REALIGNMENT AND/OR MUSCLE ADVMNT/RLS [04926] (Left knee extensor mechanism realignment with lateral retinacular release) ND LATERAL RETINACULAR RELEASE OPEN [[id number]] Interval History: Shannon S Sharp, 66 y.o. female, resting and in no [...] Plan for discharge to Subacute Rehab Facility ([facility]) when cleared by PT and medically stable [...] worsening End of Shift Summary: Progressing [facility]- Referral received and chart reviewed. Patient accepted by [facility]. Spoke to patient over phone and answered questions. She has been to our facility in the past. Will follow in in AM. Patient needs a rapid Covid prior to admission. Alicia Jacobo RN [phone] If [facility] can not accept the patient would like the next referral to [facility] Patient not discharging today called Dr Simpson and telephone order received to start the cleocin 300mg Q12hr for 10days as ordered for discharge Updated the patient she needs to choose another facility and she states she has gone to [facility] and would like a referral and sent. Called Admissions and they will review the referral. Spoke to [place] [facility] and they have no beds. [phone]. Have tried constantly for 15 minutes to call [facility] and no one answers. Line rings abut 10 times and then cuts off. [phone] Called Admissions at [facility] and she has the referral and will let CM know shortly if they will accept [facility] Physical Therapy Treatment PT Discharge Recommendations: [...] of care until patient is discharged from [facility]. Objective 04/21/22 1401 General Family/Caregiver [...] Understanding Education Comments No comments found. 04/21/22 133 Clinical Encounter Type Visited With Patient Time [...] daily for 7 days DC aspirin. Called [facility]. [facility] they have the referral and could be able to answer within an hour if they will be able to accept. Message left for Dr Simpson as patient can not take aspirin for a new anticoag order Called [facility] and spoke to the front desk manager. [phone]. Admissions is not in for another hour or two. She states they do have beds and faxed the referral to [phone] Patient would like [facility]. Referral sent and message left for Admissions Belen Cast [phone] but they are an IPR and since the last IPR said she did not qualify for IPR CM is not anticipating an acceptance. Discussed with the patient and she would liek a referral to [facility] Patient eating lunch. Declines at this time to finish eating. Will attempt again in pm. Patient would like [facility] in [place], Called the [facility] spoke to Alphonso [phone] She does not have beds until Maybe next week. Updated the patient she would like to try [facility] called [phone] spoke to Connie she does not have beds until at less next Sunday Patient would like IPR at [facility] Called Cori [phone] fax [phone] In admissions with referral and she does [...] or any previous visit. Rounded with Dr Luis Simpson and Radha P.TMarkell - PT progess reviewed- WBAT on the [...] Plan for discharge to Subacute Rehab Facility ([facility] or ECF) when cleared by PT and medically stable [...] to d/c to SNF when able. [facility] Evaluation PT Discharge Recommendations: [facility] facility placement Distance Ambulated (ft): 30 Device: Rolling walker LLE Weight Bearing Status: As Tolerated L Knee Flexion 0-140: 0 - 0, no L knee flexion permitted Prosthesis/Orthosis Used: Left (23/10 locked, no flexion) Strength LLE L Ankle [...] right Complication of internal left knee prosthesis ([facility]) 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, initial encounter ([facility]) Past Medical History: Diagnosis Date Anxiety Arthritis Chronic pain disorder COPD (chronic obstructive pulmonary disease) ([facility]) GERD (gastroesophageal reflux disease) Hypertension Pulmonary embolism ([facility]) 2019 Wears dentures Wears glasses Past Surgical [...] of Steps 5 Prior Function Level of [place] Independent with mobility and functional transfers Receives [...] what SNF she wants to go to [facility]. Brother will transport. CM will complete assessment tomorrow However Referral to [facility] faxed to [phone] still need P.T. Eval and will need Written Rx's on Rounds for SNF Son notified not to milk pickup driver the prescriptions Escribed to her pharmacy. Patient has not arrived to the IP floor for CM assessment Will be seen tomorrow Pain rated at 7 but respiratory rate as low as 9 per minute. Vital signs stable. Meets criteria for discharge/transfer from PACU. documented in this encounter [facility] 04-22-2022 Hospital course Narrative Coumadin-At discharge please follow up with your prescribing provider regarding follow up/labs and appointment. Please follow surgeon's discharge instructions and prescription directions. Surgeon' discharge instructions are in patient's folder- FOLLOW SURGEON INSTRUCTION SHEETS Contact Surgeon's office with any questions/concerns [phone] [facility] -PT/OT [...] (see Additional Instructions)LAST DOSE /12 MEDS PER [facility] Additional Instructions: Instructions to prepare for surgery: [...] prior to your surgery. Check in at coupon collection clerk desk [address] [place] [address]. If Outpatient, these additional instructions apply: An adult must stay with you the whole time you are here and drive you home. An adult must stay with you at home for 24 hours due to Anesthesia. If you have LUPE, you are required to stay 3 hours after your surgery before we can discharge you. documented in this encounter [facility] 04-20-2022 Procedure note Denies need to void. Pad beneath pt dry. 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 PROCEDURE: Left knee arthrotomy, excision of hardware from the patella, lateral retinacular release, proximal realignment of the extensor mechanism. SURGEON: Calos Smith MD MAINSPRING TORQUE TESTER: Jelani Burgos PA-C. Mr. Burgos was required [...] cleared by general medical consultants, admitted to [facility], evaluated by the anesthesia team. [...] 04/20/2022 15:47:00 LEANN/ROCIO documented in this encounter [facility] 04-20-2022 Consult note Associated Order (s): [...] left lung, likely atelectasis or scarring. Ramy Angel thanks you for the opportunity to care for your patient. Workstation ID: [id number] - [id number] Dictated By: Garo Albarado MD 01/04/2021 11:41 Assigned Physician: Garo Albarado MD Reviewed and Electronically Signed By: Garo Albarado MD 01/04/2021 11:45 Transcribed by: STEW 01/04/2021 11:41 Technologist: RAQUEL ECHOCARDIOGRAM No results found for this or any previous visit. [facility] 04-20-2022 Consult note Associated Order (s): [...] left lung, likely atelectasis or scarring. [facility] Angel thanks you for the opportunity to care for your patient. Workstation ID: [id number] - [id number] Dictated By: Garo Albarado MD 01/04/2021 11:41 Assigned Physician: Garo Albarado MD Reviewed and Electronically Signed By: Garo Albarado MD 01/04/2021 11:45 Transcribed by: STEW 01/04/2021 11:41 Technologist: RAQUEL ECHOCARDIOGRAM No results found for this or any previous visit. documented in this encounter [facility] 04-20-2022 Procedure note All medications administered per Whitley Kelley SN witnessed by myself. [facility] 04-20-[address] Smith notified of patient reporting history of MRSA a couple years ago, has an allergy to Vancomycin and Ancef, currently has Clindamycin ordered. No new orders. [facility] 04-20-2022 History and physical note History and Physical Update ( H&P completed within the previous thirty days ) I personally reviewed the History and Physical, interviewed and examined the patient prior to surgery. No changes have occurred in the patient's condition since the History and Physical was completed. [facility] 04-20-2022 History and physical note History and Physical Update ( H&P completed within the previous thirty days ) I personally reviewed the History and Physical, interviewed and examined the patient prior to surgery. No changes have occurred in the patient's condition since the History and Physical was completed. 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 PROCEDURE: Left knee arthrotomy, excision of hardware from the patella, lateral retinacular release, proximal realignment of the extensor mechanism. SURGEON: Calos Smith MD MAINSPRING TORQUE TESTER: Jelani Burgos PA-C. Mr. Burgos was required [...] cleared by general medical consultants, admitted to [facility], evaluated by the anesthesia team. [...] CALOS SMITH MD TT: 04/20/2022 15:47:00 LEANN/ROCIO [facility] 01-06-2022 History of Present illness Narrative All discharge criteria for discharge to home met, medically & surgically. BP u to WNL, tolerating up to bathroom w/o dizziness, lighthedeness. Report called to [phone], station 2 questions answered. Notified Metoprolol and imdur held prior to discharge. Verbalized understanding. Plasma Flow activated for transport to [facility]. Per brother. Chemical ice packs for comfort promotion. Spoek with patient and her brother will be here between 9and 10am to transport to [facility]. Faxed HENS Rx' surgeon instruction sheets and AVS to [facility] at [phone]. Dischareg folder to nursing for discharge to [facility]. Rx's in folder for tramadol Oxycodone valium gabapentin restoril Surgeon instruction sheets AVS Transfer Summary Number for report to RN [phone] station 2 [facility] - PROGRESS [...] 7 days Lab Units 01/05/22 0353 01/04/22452 WBC AUTO K/mcL 12.7* 14.6* HEMOGLOBIN [...] 7 days Lab Units 01/05/22 0353 01/04/22 045 CALCIUM mg/dL 9.1 8.9 GLUCOSE 0 Lab [...] left lung, likely atelectasis or scarring. [facility] Angel thanks you for the opportunity to care for your patient. Workstation ID: [id number] - [id number] Dictated By: Garo Albarado MD 01/04/2021 11:41 Assigned Physician: Garo Albarado MD Reviewed and Electronically Signed By: Garo Albarado MD 01/04/2021 11:45 Transcribed by: STEW 01/04/2021 11:41 Technologist: E [employer] WEB DEVELOPER STRESS TEST No results found for this [...] 3 Days Post-Op: Right total knee arthroplasty 09769 - ND ARTHROPLASTY KNEE CONDYLE&PLATEAU MED/LAT CPTS W/WO PATELLA [...] Post-Op status post Right total knee arthroplasty 32976 - ND ARTHROPLASTY KNEE CONDYLE&PLATEAU MED/LAT CPTS W/WO PATELLA [...] to discharge to an impatient unit or jail facility. [facility] Orthopaedic Surgery Progress Note 2 Days Post-Op: Right total knee arthroplasty 72246 - ND ARTHROPLASTY KNEE CONDYLE&PLATEAU MED/LAT CPTS W/WO PATELLA [...] Post-Op status post Right total knee arthroplasty 06417 - ND ARTHROPLASTY KNEE CONDYLE&PLATEAU MED/LAT CPTS W/WO PATELLA RESURFACING . - WBAT on the operative extremity - home coumadin, continue lovenox bridge, INR yesterday 0.9 for DVT ppx - PT - Follow-up in clinic in 6 weeks - Plan for discharge to Subacute Rehab Facility ([facility]) when cleared by PT and medically stable Spoke to the patient and she called her brother who will be her transport and he wants to leave here by 0900am. Reached out to [facility] to complete Rx's for home meds. Pt sleeping soundly and did not rouse to name of knock. Will attempt again in am. Message left for Admissions Christy at [place] cell [phone] and office [phone] Called [facility] and they Senior Publications Specialist provided Admissions cell of Christy [phone] Called her and she still does not [...] Subjective Pt agreeable to treatment. Requesting this MOTORBOAT MECHANIC HELPER move her LEs out of the bed. Education and instruction provided. Requesting bathroom urgently. Mobility noted below. At end of treatment pt sitting in chair awaiting lunch. Continue to follow until pt is d/c from [facility]. Vitals/Pain Pain Assessment Pain Assessment: 0-10 [...] plan to SNF. Awaiting to hear from [place] for acceptance. Discussed transportation and her brother can transport. Encouraged IS as patient still needs to wean from oxygen. Message left for Admissions at [facility]. [phone] to see if they can accept. GENERAL [...] left lung, likely atelectasis or scarring. Ramy Angel thanks you for the opportunity to care [...] to discharge to an inpatient unit or jail facility. NN met with the pt at bedside. Pt would like a referral sent to [facility]. She will continue to review the list for choices 2 and 3 in the event [facility] cannot accept. Referral sent via [employer] Fax. 01/04/22 1531 Clinical Encounter Type Visited With Patient Time Spent 20 Minutes Type of Contact Introduction SPIRITUAL CARE ASSESSMENT Spiritual Care Assessment: Pt appropriate and coping peaceful and positive calderon and family are supportive Spiritual Intervention: Active listening Discuss coping style Hospitality provided Elmer given Outcome: Pt shared feelings and values expressed gratitude Plan: PC will return at pt/family request. CM received IB call from Cori with [facility]. They do not have bed availability for [...] completed with mod/max assist. Mobility noted below. [place] pillow placed at right foot to assist in pt right LE positioning as pt position of comfort is with external rotation and knee slightly bent. Education provided. Continue as per PT POC until pt is d/c from [facility]. Vitals/Pain Pain Assessment Pain Assessment: 0-10 [...] comments found. Voice message left for Cori [phone] at [facility]. NN inquiring about the status of referral. [...] Procedure/Treatment: Gait Training Gait Training Time Entry: Gait Training Activity 1: gait training Therapeutic [...] End: 01/06/22 Outcomes Date/Time User Outcome 01/04/22 134Lyn Kelley PTA Progressing Goal: Pt will perform bed mobility with SBA Dates: Start: 01/03/22 Expected End: 01/06/22 Outcomes Date/Time User Outcome 01/04/22 Dheeraj Kelley PTA Progressing Goal: Pt will transfer with SBA and FWW Dates: Start: 01/03/22 Expected End: 01/06/22 Outcomes Date/Time User Outcome 01/04/22 Dheeraj Kelley PTA Progressing Goal: Pt will demo [...] last 7 days Lab Units 01/04/22 045 HEMOGLOBIN g/dL 10.8* HEMATOCRIT % 34.0* VITALS [...] Results from last 7 days Lab Units 01/04/22452 WBC AUTO K/mcL 14.6* HEMOGLOBIN g/dL 10.8* [...] Results from last 7 days Lab Units 01/04/223 INR 0.9 LIPID PANEL THYROID TESTS No [...] left lung, likely atelectasis or scarring. Ramy Angel thanks you for the opportunity to care [...] 1 Day Post-Op: Right total knee arthroplasty 30533 - ND ARTHROPLASTY KNEE CONDYLE&PLATEAU MED/LAT CPTS W/WO PATELLA [...] Post-Op status post Right total knee arthroplasty 90972 - ND ARTHROPLASTY KNEE CONDYLE&PLATEAU MED/LAT CPTS W/WO PATELLA [...] tomorrow to acquire update of needed. # [phone] PT note is in and this CM [...] R knee. Pt. Plans to discharge to [facility] as lives alone. Pt. Has [employer] charity. Rails to enter home. Continue PT tx. Per POC. Patient Active Problem List Diagnosis Pain management Unilateral primary osteoarthritis, right knee S/P TKR (total knee replacement), right Past Medical History: Diagnosis Date Anxiety Arthritis COPD (chronic obstructive pulmonary disease) ([facility]) Hypertension Pulmonary embolism ([facility]) Wears dentures Wears glasses Past Surgical History: [...] Level of Function: Prior Function Level of [place]: Independent with mobility and functional transfers Receives [...] Medical Staff Made Aware: Yes Comments: RN Marsha notified re status Plan Treatment/Interventions: Functional transfer [...] 01/06/22 Outcomes Date/Time User Outcome 01/03/22 Art Amin PT Progressing Goal: Pt will perform bed mobility with SBA Dates: Start: 01/03/22 Expected End: 01/06/22 Outcomes Date/Time User Outcome 01/03/22 Art Amin PT Progressing Goal: Pt will transfer with SBA and FWW Dates: Start: 01/03/22 Expected End: 01/06/22 Outcomes Date/Time User Outcome 01/03/22 Art Amin PT Progressing Goal: Pt will demo good [...] transitioning home alone. Patient has requested [facility]. Patient states her brother will plan to provide transportation at time of discharge. CM was able to reach the admissions dept and the facility is an IPR, no swing bed/ TCU unit at this facility. Patient with multiple co morbidities and this CM will fax the referral for review to [phone] for review. Patient was educated a SNF [...] left lung, likely atelectasis or scarring. Ramy Angel thanks you for the opportunity to care [...] 1531 Referral Data Referral Reason Discharge Planning [facility] Information [facility] Patient Information Accompanied by/Relationship telephone call Patient arrived from? Home Support System Extended family Referral To Financial Resources Other (Comment) (no needs identified) Community Resources Other (Comment) (no needs identified) Services Requested DME potential needs No Destination/Placement [facility] Rehab Potential Good CM made telephone call to patient preoperatively to complete initial assessment for discharge planning. Home address and PCP reviewed. Home assessment completed. Patient lives alone in a 1 story home, 5 steps/handrail to enter. Bathroom: tub shower, shower chair. DME reviewed, denies need. Plan: discharge to [facility], brother to provide transportation. Covid testing education provided, patient will schedule. All questions/concerns addressed. documented in this encounter [facility] 01-05-2022 Hospital course Narrative Prescriptions for [...] coumadin clinic regarding Labs and lovenox bridge. [facility] CUSTODIAL AIDE TO HELP MANAGE TO THERAPEUTIC LEVEL -Plasma [...] prior to your surgery. Check in at coupon collection clerk desk [id number] [phone]. Medication instructions per [facility] recc If Outpatient, these additional instructions apply: An adult must stay with you the whole time you are here and drive you home. An adult must stay with you at home for 24 hours due to Anesthesia. If you have LUPE, you are required to stay 3 hours after your surgery before we can discharge you. documented in this encounter [facility] 01-03-2022 Procedure note Family updated per phone. [facility] 01-03-2022 Procedure note Family updated per phone. Trinity Godinez 1955 ? Retention: Exchange Retention Policy (10 years) Expires: Sun01/01/2032 10:37 AM Retention: Exchange Retention Policy (10 years) Expires: Sun01/01/2032 10:37 AM [email or web address] EXTERNAL CAUTION: This email originated from outside the organization. Do not click links or open any attachments unless you recognize the sender and know the content is safe. If you believe this is spam, forward the message to [email or web address]. - [facility], A Member of [facility] OPERATIVE REPORT PATIENT NAME: Trinity Godinez DATE OF : 1955 [facility]#: [id number] SURGEON: Calos Smith MD, FACS DATE OF SERVICE: 01/03/2022 DATE OF SURGERY: 01/03/2022 PREOPERATIVE DIAGNOSIS: OA right knee (M17.11) POSTOPERATIVE DIAGNOSIS: OA right knee (M17.11) PROCEDURE: Primary Right Total Knee Arthroplasty (62640) Femoral Component: Heidi Biomet Vanguard Cruciate Retaining , Size: 62.5mm Tibial Component: Biomet Fixed I-Beam Stem Tibial Tray 75mm Patella Component: Biomet Series A Standard Patella , 31mm Polyethylene: Vanguard ArCom anterior stabilized 12mm Fixation: Biomet Bone Cement with 1g Vancomycin ATTENDING SURGEON: Calos Smith MD, FACS MAINSPRING TORQUE TESTER: STEPHAN Diane DO INDICATIONS: Patient is a [...] awake, alert, and stable in good condition. MAINSPRING TORQUE TESTER/ATTENDING PARTICIPATION: STEPHAN Diane DO assisted with proper [...] on 01/03/2022 10:28:45 [facility], A Member of [facility] OPERATIVE REPORT PATIENT NAME: Trinity Godinez DATE OF : 1955 [facility]#: [id number] SURGEON: Calos Smith MD, FACS DATE OF SERVICE: 01/03/2022 DATE OF SURGERY: 01/03/2022 REF [id number] LOT [id number] Vanguard Knee System 62.5 MM Uncoated knee femur prosthesis, metallic Use By 2031-11-13 () [id number] () [id number] (10) [id number] REF [id number] LOT [id number] Biomet Knee System 75 mm Uncoated knee tibia prosthesis, metallic Use By 2031-10-11 () [id number] () [id number] (10) [id number] REF [id number] LOT [id number] Vanguard Knee System 31 mm 8 mm Polyethylene patella prosthesis Use By 2026-10-10 () [id number] () [id number] (20) [id number] REF [id number] LOT [id number] Vanguard Knee System 12 MM 75 MM Tibial insert Use By 2026-12-22 (52) [id number] (48) [id number] (89) [id number] documented in this encounter [facility] 01-03-2022 Procedure note Trinity Godinez 1955 ? Retention: Exchange Retention Policy (10 years) Expires: Sun01/01/2032 10:37 AM Retention: Exchange Retention Policy (10 years) Expires: Sun01/01/2032 10:37 AM [email or web address] EXTERNAL CAUTION: This email originated from outside the organization. Do not click links or open any attachments unless you recognize the sender and know the content is safe. If you believe this is spam, forward the message to [email or web address]. - [facility], A Member of [facility] OPERATIVE REPORT PATIENT NAME: Trinity Godinez DATE OF : 1955 CSN#: [id number] SURGEON: Calos Smith MD, FACS DATE OF SERVICE: 01/03/2022 DATE OF SURGERY: 01/03/2022 PREOPERATIVE DIAGNOSIS: OA right knee (M17.11) POSTOPERATIVE DIAGNOSIS: OA right knee (M17.11) PROCEDURE: Primary Right Total Knee Arthroplasty (23429) Femoral Component: Heidi Biomet Vanguard Cruciate Retaining , Size: 62.5mm Tibial Component: Biomet Fixed I-Beam Stem Tibial Tray 75mm Patella Component: Biomet Series A Standard Patella , 31mm Polyethylene: Vanguard ArCom anterior stabilized 12mm Fixation: Biomet Bone Cement with 1g Vancomycin ATTENDING SURGEON: Calos Smith MD, FACS MAINSPRING TORQUE TESTER: STEPHAN Diane DO INDICATIONS: Patient is a [...] awake, alert, and stable in good condition. MAINSPRING TORQUE TESTER/ATTENDING PARTICIPATION: STEPHAN Diane DO assisted with proper [...] on 01/03/2022 10:28:45 [facility], A Member of [facility] OPERATIVE REPORT PATIENT NAME: Trinity Godinez DATE OF : 1955 [facility]#: [id number] SURGEON: Calos Smith MD, FACS DATE OF SERVICE: 01/03/2022 DATE OF SURGERY: 01/03/2022 REF [id number] LOT [id number] Vanguard Knee System 62.5 MM Uncoated knee femur prosthesis, metallic Use By 2031-11-13 () [id number] () 728883 (10) [id number] REF 199067 LOT [id number] Biomet Knee System 75 mm Uncoated knee tibia prosthesis, metallic Use By 2031-10-11 () [id number] () [id number] (10) [id number] REF 231626 LOT [id number] Vanguard Knee System 31 mm 8 mm Polyethylene patella prosthesis Use By 2026-10-10 () [id number] () [id number] (64) [id number] REF [id number] LOT [id number] Dimers Labguard Knee System 12 MM 75 MM Tibial insert Use By 2026-12-22 (15) [id number] (35) [id number] (87) [id number] [facility] 01-03-2022 History and physical note History and Physical Update ( H&P completed within the previous thirty days ) I personally reviewed the History and Physical, interviewed and examined the patient prior to surgery. No changes have occurred in the patient's condition since the History and Physical was completed. [facility] 01-03-2022 History and physical note History and Physical Update ( H&P completed within the previous thirty days ) I personally reviewed the History and Physical, interviewed and examined the patient prior to surgery. No changes have occurred in the patient's condition since the History and Physical was completed. documented in this encounter [facility] 10-23-2021 Note PROCEDURE: XR KNEE R T 4V or > HISTORY: Pain of right knee joint , chronic COMPARISON: XR knee right 06/20/2020 FINDINGS: BONES:Narrowing of all 3 joint spaces, greatest involving the anterior compartment. Irregular sclerosis of the tibial plateau suggesting possible ykjt-ad-btdr contact and weightbearing. SOFT TISSUES:No visible soft [...] authenticated by: GARO CASILLAS Date: 2021-10-23 07:14 [facility] 01-08-2021 Physician Hospital Discharge summary ATTENTION: CUTOVER PATIENT Please Note: This patient was being treated during the EHR conversion from [employer] to [employer] on 01/08/2021 There are two medical records for this patient; one in [facility] and one in [facility]. To see the remainder of the medical record, refer to the [facility] medical record. If you have questions, please contact the Health Information Management Department Patient Name: TRINITY GODINEZ Patient [facility] 01-08-2021 History of Present illness Narrative Faxed orders to [facility] AT [phone] Discharge fodler to nursing for discharge to [facility]. Rx in folder tylenol tramadol oxycodone. Physical Therapy Physical Therapy Treatment Subjective: Pt declined to participate in PT treatment this afternoon, pt stated she would like to rest. Will continue to follow for skilled PT until D/C from [facility]. Problem: Mobility Goal: Patient will ambulate [...] from stand Outcome: Progressing Message left for [facility] to see when they can accept the patient Spoke to Delroy at [facility] she does not want the patient to discharge uptil after 1500. Spoke with patient and Granddaughter is planning to be here at that time anyways. Instructed to take the Discharge folder to [facility] and give the entire folder to them [...] Knee Immobilizer when up. May discharge to [facility] if OK with Gen Med and Dr [...] Immobilizer with out-of-bed. Discharge Plan: today to [facility]. LOS: 5 days VALARIE Gan Date: 01/08/2021 [...] be continued to be monitored at the [facility]. HTN (I10) Chronic condition & present on [...] continue to encourage oral hydration. Creatinine stable 01 06 and 01 07 and will continue to be monitored post discharge at ECF, avoid nephrotoxic agents. Antibiotics per primary infectious disease service. Left adrenal mass. Noted on ultrasound imaging at outside facility due to renal issues 3.9 cm. Patient will need to follow-up with her surveillance physician/legal associate post discharge Acute Post Hemorrhagic Anemia (D62) [...] from Last 1 Encounters: 01/06/21 30.41 kg/m @uramub72@ No intake/output data recorded. No intake/output data [...] for: [facility] documented in this encounter [facility] 01-08-2021 Hospital course Narrative Patient will need an INR checked within 3 days of discharge to ECF for warfarin management to be monitored by ECF physician. Also needs outpatient follow-up with nephrology for monitoring of kidney function. Please follow-up with your legal associate for ongoing surveillance of your kidney function. You should have an INR checked within 3 days of discharge to [facility] for management of your warfarin. documented in this encounter [facility] 01-08-2021 Hospital Discharge instructions Marsha Doan [...] alcohol or with certain drugs. This includes tuqb-jpa-bquhjhl medicines. Make sure your doctor knows about [...] Where can you learn more? Go to [email or web address] chart Enter P175 in the search box to learn more about Learning About Managing Acute Pain at Home. Current as of: July 08, 2020 Content Version: 13.0 [employer]. Care instructions adapted under license by your healthcare professional. If you have questions about a medical condition or this instruction, always ask your healthcare professional. [employer] disclaims any warranty or liability for your [...] Where can you learn more? Go to [email or web address] Fitnessmy chart Enter A180 in the search box to learn more about Learning About Opioids and Acute Pain. Current as of: July 08, 2020 Content Version: 13.0 [employer]. Care instructions adapted under license by your healthcare professional. If you have questions about a medical condition or this instruction, always ask your healthcare professional. [employer] disclaims any warranty or liability for your use of this information. The following attachments cannot be sent through Care Everywhere.Incentive Spirometer: General Info (Mauritanian)Constipation (Mauritanian)DVT (Deep Vein Thrombosis): General Info (Mauritanian)Fall Prevention (Mauritanian)Opioids: General Info (Mauritanian)documented in this encounter [facility] 01-07-2021 Hospital Progress note Patient: TRINITY GODINEZ MRN: ([id number] Age: 65 years Sex: Female : 1955 Associated Diagnoses: None Author: Rogelio Leyva MD Assessment Assessment Diagnosis: Primary osteoarthritis of left knee ([id number]-PN M17.12, Working, Medical), Unilateral primary osteoarthritis, left [...] as needed O2 at bedtime at the ECF. Nocturnal/supine desaturation. History of congestive heart failure. [...] will need to follow-up with her surveillance physician/legal associate post discharge Acute Post Hemorrhagic Anemia (D62) -received 2 units of PRBCs for HBG 6.8 on 01/05/2021. HBG 8.8 on 10 . Today's hemoglobin 9.4. Doing well no indication [...] Supervising Physician Comments (more content not included)... [facility] 01-07-2021 Note ID NOW COVID-19_Abbo [facility] Progress note Patient: TRINITY GODINEZ MRN: ([id number] Age: 65 years Sex: Female : 1955 [...] Signs Temperature: 97.8 (01/07 08:31) Pulse: 75 (01/07 08:31) Respiration: 15 (01/07 04:33) BP: 138/80 (01/07 08:31) Pulse Ox: 93 (01/07 08:00) Oxygen Delivery: Room air (01/07 08:00) Pain Score: 7 (01/07 06:03) Results [...] (PT) 15.7 Sec (01/08 04:54) 14.2 Sec (01/06) OTHER LABS Est CrCl IBW (mL/min)-RX 32.18 mL/min (01/08 04:54) 33.06 mL/min (01/06 02:) BUN / Creatinine Ratio 14 (01/08 04:54) 16 (01/06 02:22) Gentamicin Trough Level 1.0 (01/08 04:54) 3.9 (01/05 05:) Tobramycin Level SEE SEPARATE REPORT ug/mL (01/05) Vancomycin Random <3.5 ug/ml (01/05) WBC Count 7.5 thou/mcL (01/05) Red Blood Cell Count 2.50 X(10)6/mcL (01/05) MCV 85.5 FL (01/05) MCH 27.2 Picograms (01/05) MCHC 31.8 gm/dL (01/05) RDW 16.0 % (01/05) Platelet Count 141 thou/mcL (01/05) MPV 10.5 FL (01/05 05:) Diff Method AUTOMATED DIFFERENTIAL (01/05) Neutrophil Percent 76.1 % (01/05 05:) Lymphocyte Percent 12.7 % (01/05) Monocyte Percent 8.1 % (01/05 05:) Eosinophil Percent 2.2 % (01/05 05:) Basophil Percent 0.9 % (01/05) Neutrophil Absolute 5.7 thou/mcL (01/05 05:) Lymphocyte Absolute 0.9 thou/mcL (01/05 05:) Monocyte Absolute 0.6 thou/mcL (01/05 05:) Eosinophil Absolute 0.2 thou/mcL (01/05 05:) Basophil Absolute 0.1 thou/mcL (01/05) ABO Group A (01/05) A (01/05 05:) Rh Type POSITIVE (01/05 05:) POSITIVE (01/05 05:) Unit # [id number] (01/05 10:56) [id number] (01/05 10:56) List of X-rays performed in last 36 hours No X-rays charted within the last 36 hours I have reviewed the available microbiologic data available at the time (more content not included)... [facility] 01-06-2021 Hospital Progress note Patient: TRINITY GODINEZ MRN: [id number] Age: 65 years Sex: Female : 1955 Associated Diagnoses: None Author: Autumn VEGA , Rogelio Villalta Assessment Assessment Diagnosis: Primary osteoarthritis of left knee ([id number]-RQ M17.12, Working, Medical), Unilateral primary osteoarthritis, left [...] as needed O2 at bedtime at the ECF. Nocturnal/supine desaturation. History of congestive heart failure. [...] will need to follow-up with her surveillance physician/legal associate post discharge Acute Post Hemorrhagic Anemia (D62) -received 2 units of PRBCs for hemoglobin 6.8 on 01/05/2021. Hemoglobin 8.8 this morning adequate response. Tolerated transfusion well. No indication for additional transfusion. We will continue to monitor Hold discharge for today. Suspect would like to watch another 24 hours to make sure her renal function continues to improve. Probable plans for [facility] to jail facility in the next 24 hours Supervising Physician Comments Documentation By: Consulting (more content not included)... [facility] 01-05-2021 Hospital Progress note Patient: TRINITY GODINEZ Age: 65 years Sex: Female : 1955 Associated Diagnoses: None Author: Rogelio Leyva MD Assessment Assessment Diagnosis: Primary osteoarthritis of left knee (IJU18-HY M17.12, Working, Medical), Unilateral primary osteoarthritis, left [...] as needed O2 at bedtime at the [facility]. Nocturnal/supine desaturation. History of congestive heart failure. [...] to renal issue (more content not included)... [facility] 01-05-2021 Hospital Progress note Patient: TRINITY GODINEZ MRN: [id number] Age: 65 years Sex: Female : 1955 [...] 100 (01/05 07:44) Oxygen Delivery: Nasal cannula (01/05 03:30) O2 Device Flow: 2 L/min Pain Score: 8 (01/05 03:30) Results Review Labs - Last 36 hours (Max 2 / lab test) CHEMISTRY Sodium 141 (01/05 05:) 138 (01/04) Potassium 4.7 (01/05) 5.7 (01/04) Chloride 108 (01/05) 104 (01/04 05:) CO2 27 (01/05) 26 (01/04) Glucose 91 (01/05) 90 (01/04) Glucose POCT No result BUN 36 (01/05) 45 (01/04 05:) Creatinine 2.05 (01/05) 2.32 (01/04) Calcium Total 8.1 (01/05) 8.5 (01/04 05:) Magnesium No result HEMATOLOGY WBC 7.5 (01/05 05:) 7.3 (01/04) RBC 2.50 (01/05 05:) 2.75 (01/04 05:) Hb 6.8 (01/05 05:) 7.5 (01/04 05:) Hematocrit 21.4 (01/05 05:) 23.5 (01/04 05:) Platelets 141 (01/05 05:) 167 (01/04 05:) MCV 85.5 (01/05 05:) 85.5 (01/04 05:07) MCH 27.2 (01/05 05:) 27.4 (01/04 05:) RDW 16.0 (01/05) 15.5 (01/04) MCHC 31.8 [...] (01/05) MPV 10.5 FL (01/05) 10.5 FL (01/04) Diff Method AUTOMATED DIFFERENTIAL (01/05) AUTOMATED DIFFERENTIAL (01/04) Neutrophil Percent 76.1 % (01/05) 78.7 % (01/04 05:07) Lymphocyte Percent 12.7 % (01/05) 13.3 % (01/04 05:07) Monocyte Percent 8.1 % (01/05) 7.5 % (01/04 05:07) Eosinophil Percent 2.2 % (01/05) 0.2 % (01/04 05:) Basophil Percent 0.9 % (01/05) 0.3 % (01/04 05:07) ABO Group A (01/05) A (01/05) Rh Type POSITIVE (01/05) POSITIVE (01/05) Antibody Screen NEGATIVE (01/03 10:05) NEGATIVE (01/03 10:05) Unit # [id number] (01/05) [id number] (01/05) List of X-rays performed in l (more content not included)... [facility] 01-04-2021 Surgery Surgical operation note DICTATED BY: [...] restrictor on the femur. We used a Travon size D tibial cone. Fixation is Biomet bone cement mixed with 1 g vancomycin. This is the gentamicin laden Biomet cement mixed with 1 g vancomycin. SURGEON: Calos Smith MD MAINSPRING TORQUE TESTER: MD Satish Cheng MD assisted with proper [...] cleared by General Medical consultants, admitted to [facility]. At this point, she was [...] the tibia. We took our reamers from [place] and created the cone for this enhanced [...] distally. We ap (more content not included)... [facility] 01-04-2021 Hospital Progress note Patient: TRINITY GODINEZ MRN: [id number] Age: 65 years Sex: Female : 1955 Associated Diagnoses: None Author: Autumn VEGA , Rogelio Villalta Assessment Assessment Diagnosis: Primary osteoarthritis of left knee ([id number]-MX M17.12, Working, Medical), Unspecified osteoarthritis, unspecified site [...] as needed O2 at bedtime at the [facility]. Nocturnal/supine desaturation. History of congestive heart failure. [...] 3.9 cm. Patient (more content not included)... [facility] 01-03-2021 History and physical note Patient: TRINITY GODINEZ MRN: [id number] Age: 65 years Sex: Female : 1955 Associated Diagnoses: None Author: Rogelio Leyva MD Impression Diagnosis Chronic osteoarthritis (JXS06-AP M19.90, 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 Plan Osteoarthritis Left Knee/left [...] as needed O2 at bedtime at the [facility]. Nocturnal/supine desaturation. GERD - (K21.9) Chronic condition [...] will need to follow-up with her surveillance physician/legal associate post discharge Supervising Physician Comments Documentation By: [...] Dexamethasone 10 mg noted given Discussed with POLISHING MACHINE TENDER Subjective: Rates pain currently -none currently early PACU No nausea, vomiting No Chest pain, sob Past Medical History CHF HTN COPD O2 prn-while in prison, her O2 sat drops when laying down [...] Tendencies: Surgical/Procedure Hx Revision of knee arthroplasty ([id number]) on 01/03/2021 at 65 Years. Comments: 01/03/2021 13:17 NEIDA Hinson RN , Zoya Berrios Left knee reimplantation Debridement ([id number]) on 11/19/2020 at 65 Years. Comments: 11/19/2020 [...] 600 mg, PO, BID Prescriptions Prescribed Dr. Hicks'austyn Orders:: See Instructions, 1)Picc Care 2)Qmon CBC,SR,Creat,CRP, Vanco Trough, fax to Dr. Hicks [phone] 3)IV ATB UNTIL reimplant 4)Call Dr. Hicks [...] for More Detail Patient: TRINITY GODINEZ MRN: ([id number] Age: 65 years Sex: Female : 1955 Associated Diagnoses: None Author: Alicia Connell RN Impression Diagnosis Chronic osteoarthritis (AIF19-IK M19.90, 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 Plan Supervising Physician Comments Documentation By: Consulting Physician. Chief Complaint Postop Medical Co management History of Present Illness 65 y/o F who is S/P Left TK revision by Dr. mSith who requests post op medical management. Data obtained from pre op H&P. Past Medical History CHF HTN COPD O2 prn-while in prison, her O2 sat drops when laying down [...] Bleeding Tendencies: Surgical/Procedure Hx Debridement (SNOMED CT [id number]) performed by Luis Quinn MD , Calos on 11/19/2020 at [...] CBC,SR,Creat,CRP, Vanco Trough, fax to Dr. Hicks [phone] 3)IV ATB UNTIL reimplant 4)Call Dr. Hicks [...] last 36 hours documented in this encounter [facility] 01-03-2021 Mycobacterium sp Org specific cx Ql (Unsp spec) [facility] Microbiology PROCEDURE: Culture AFB and Stain SOURCE: [...] CONTRIBUTOR_SYSTEM, CO_PN NO ACID FAST BACILLI SEEN [facility] Comment on above: Performed By: #### 5 0941-4 ####[address] 01-03-2021 Mycobacterium sp Org specific cx Ql (Unsp spec) [facility] Microbiology PROCEDURE: Culture AFB and Stain SOURCE: [...] CONTRIBUTOR_SYSTEM, CO_PN NO ACID FAST BACILLI SEEN [facility] Comment on above: Performed By: #### 5 0941-4 ####[address] 01-03-2021 Mycobacterium sp Org specific cx Ql (Unsp spec) [facility] Microbiology PROCEDURE: Culture AFB and Stain SOURCE: [...] CONTRIBUTOR_SYSTEM, CO_PN NO ACID FAST BACILLI SEEN [facility] Comment on above: Performed By: #### 5 0941-4 ####[address] 01-03-2021 Mycobacterium sp Org specific cx Ql (Unsp spec) [facility] Microbiology PROCEDURE: Culture AFB and Stain SOURCE: [...] CONTRIBUTOR_SYSTEM, CO_PN NO ACID FAST BACILLI SEEN [facility] Comment on above: Performed By: #### 5 0941-4 ####[address] 01-03-2021 Bacteria identified Sterile body fluid culture Nom (Unsp spec) [facility] Microbiology PROCEDURE: Culture Body Fluid + Susceptibility [...] RARE POLYS No Epithelials NO ORGANISMS SEEN [facility] Comment on above: Performed By: #### 6 36-1 ####[address] 01-03-2021 Mycobacterium sp Org specific cx Ql (Unsp spec) [facility] Microbiology PROCEDURE: Culture AFB and Stain SOURCE: [...] CONTRIBUTOR_SYSTEM, CO_PN NO ACID FAST BACILLI SEEN [facility] Comment on above: Performed By: #### 5 0941-4 ####[address] 01-03-2021 Anesthesiology Preoperative evaluation and management note Patient: TRINITY GODINEZ MRN: ([id number] Age: 65 years Sex: Female : 1955 [...] Creat,CRP, Vanco Trough, fax to Dr. Hicks [phone])IV ATB UNTIL reimplant4)Call Dr. Hicks for F/C/S, N/V/D, rash, [phone])F/U with Dr Hicks in 4-5 weeks COMMENTS: [...] Yes. The p (more content not included)... [facility] 01-03-2021 Hospital Progress note Patient: TRINITY GODINEZ MRN: [facility])-[id number] Age: 65 years Sex: Female : 1955 [...] intraneural local anesthetic injection throughout the procedure. [facility] 01-03-2021 Hospital Progress note Patient: TRINITY GODINEZ MRN: [id number] Age: 65 years Sex: Female : 1955 Associated Diagnoses: None Author: Pramod Parry MD [] Patient/surgeon request nerve block for post-op [...] intraneural local anesthetic injection throughout the procedure. [facility] 01-03-2021 Procedure note DICTATED BY: CALOS SMITH [...] restrictor on the femur. We used a Travon size D tibial cone. Fixation is Biomet bone cement mixed with 1 g vancomycin. This is the gentamicin laden Biomet cement mixed with 1 g vancomycin. SURGEON: Calos Smith MD MAINSPRING TORQUE TESTER: MD Satish Cheng MD assisted with proper [...] cleared by General Medical consultants, admitted to [facility]. At this point, she was [...] the tibia. We took our reamers from [employer] and created the cone for this enhanced [...] and we did close this over a #10-Syrian drain. We closed the subcutaneous tissues with 2-0 Vicryl and the skin with elvira. Applied a very bulky dressing and took the patient to the Post-Anesthesia Care Unit in satisfactory condition. Roentgenographs showed satisfactory position and alignment of components. TRINITY GODINEZ Birthdate: 1955 D/01/03/2021 16:37:19 T/01/03/2021 20:53:46 VOICE JOB ID: [id number] Ramy Angel thanks you for the opportunity to care for your patient. DID: [id number] documented in this encounter [facility] 11-23-2020 Surgery Surgical operation note DICTATED [...] to proceed and she is admitted to [facility], evaluated by the anesthesiologist, adductor [...] cement from t (more content not included)... [facility] 11-22-2020 Hospital Progress note Patient: TRINITY GODINEZ MRN: ([id number] [facility]: [id number] Age: 65 years Sex: Female : 1955 Associated Diagnoses: None Author: Grabiel Hicks MD Assessment 1. Knee: Status post re-radical debridement. [...] 04:50) COAGULATION INR 1.4 (11/22 04:50) 1.4 (11/22 03:30) Prothrombintime (PT) 16.9 Sec (11/22 04:50) 17.1 Sec (11/21 04:30) OTHER LABS Est CrCl IBW (mL/min)-RX 53.29 mL/min (11/22 04:50) 54.29 mL/min (11/21 04:30) Est CrCl AdjBW (mL/min)-R 65.00 mL/min (11/22 04:50) 66.21 mL/min (11/21 04:30) BUN / Creatinine Ratio 17 (11/22 04:50) 17 (11/22 03:30) Vancomycin Random 28.3 ug/ml (11/22 12:59) SARS-CoV-2 NOT DETECTED (11/22 13:) First test N (11/22 13:) 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 N (11/22 13:) Symptomatic as defined by N (11/22) Date of onset NA (11/22 13:) Hospitalized Y (11/22 13:30) ICU N (11/22 13:) Resides in congregate car N (11/22 13:) N (11/22 13:) Device Identifier ID NOW COVID-19_Smart [employer] EUA (11/22 13:) MPV 10.2 FL (11/22 04:50) 9.9 FL (11/22 03:30) Diff Method AUTOMATED DIFFERENTIAL (11/22 04:50) AUTOMATED DIFFERENTIAL (11/22 03:30) Neutrophil Percent 65.3 % (11/22 04:50) 66.9 % (11/21 04:30) Lymphocyte Percent 17.5 % (11/22 04:50) 18.7 % (11/21 04:30) Monocyte Percent 13.0 % (11/22 04:50) 12.1 [...] Reactions (Selected) Sever (more content not included)... [facility] 11-22-2020 Hospital Progress note Patient: TRINTIY GODINEZ MRN: ([id number] Age: 65 years Sex: Female : 1955 Associated Diagnoses: None Author: Mario VEGA , Trey Carrasco Assessment Assessment Diagnosis: Osteoarthritis of left knee (SOS52-RX M17.9, 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 Plan A medical consult [...] 2 / l (more content not included)... [facility] 11-22-2020 Note ID NOW COVID-19_[facility] 11-22-2020 Physician Hospital Discharge summary CLINICAL SUMMARY Please take this summary document to your follow up appointments. [facility] 11/22/20 14:48 [address] [place] [address] PATIENT INFORMATION Name: TRINITY GODINEZ Address: [address] [place] [address] Age: 65 Years Phone: [phone] : 1955 12:00 MRN: [id number] Sex: Female Race: White Ethnicity: Not Hispan/Lat Admitted From: Clinic or [facility] Medical Service: Orthopedic Surgery Nurse Unit/Bed: (GA) 2N 0221-01 Admit Date: 11/19/2020 09:38 PCP: Levi Shine MD PHYSICIANS INVOLVED WITH CARE Attending Physicians: Luis Quinn MD , Calos - Orthopaedic Surg Admitting Physician: Luis Quinn MD , Calos - Orthopaedic Surg Primary Care Physician:Levi Shine MD,[facility], - Consults: Shailesh VEGA , Grabiel Maciel - Infectious Disease Andrew VEGA , Jose Carrasco - Internal Medicine Mario VEGA , Trey E - [facility] - Internal Medicine Angeles VEGA , [...] CBC,SR,Creat,CRP, Vanco Trough, fax to Dr. Hicks [phone] 3)IV ATB UNTIL reimplant 4)Call Dr. Hicks [...] CBC,SR,Creat,CRP, Vanco Trough, fax to Dr. Hicks [phone] 3)IV ATB UNTIL reimplant 4)Call Dr. Hicks for F/C/S, N/V/D, rash, 5)F/U with Dr Hicks in 4-5 weeks. Refills: 0., Call Dr. Hicks if released from your facility before IV therapy completed; Notify Dr. Hicks if Patient is admitted to the hospital. Comment Freetext M (more content not included)... [facility] 11-21-2020 Hospital Progress note Patient: TRINITY GODINEZ MRN: [id number] Age: 65 years Sex: Female : 1955 Associated Diagnoses: None Author: Shailesh VEGA , Grabiel Maciel Assessment 1. Knee: Status post re-radical debridement. Intraoperative cultures presently pending. 2. History of infection: Trying to obtain culture reports from her Hospital in [place] from last January. 3. Disposition: Anticipate discharge [...] 04:30) Glucose POCT No result BUN 18 (11/22 03:30) Creatinine 1.07 (11/22 03:30) Calcium Total 8.2 (11/22 03:) Magnesium No result HEMATOLOGY WBC 7.0 (11/21 04:30) RBC 2.85 (11/22 03:30) Hb 8.5 (11/22 03:30) Hematocrit 25.9 (11/22 03:30) Platelets 181 (11/22 03:30) MCV 90.9 (11/21 04:30) MCH 29.8 (11/22 03:30) RDW 14.6 (11/21 04:30) MCHC 32.8 (11/22 03:30) Neutrophil Ab 4.6 (11/22 03:30) Monocyte Ab 0.8 (11/21 04:30) Eosinophil Ab 0.1 (11/22 03:30) Basophil Ab 0.0 (11/22 03:30) Lymphocyte Ab 1.3 (11/22 03:30) COAGULATION INR 1.4 (11/21 04:30) 1.0 (11/20 04:20) Prothrombintime (PT) 17.1 Sec (11/21 04:30) 13.6 Sec (11/21 03:20) OTHER LABS Est CrCl IBW (mL/min)-RX 54.29 mL/min (11/21 04:30) 59.88 mL/min (11/20 04:20) Est CrCl AdjBW (mL/min)-R 66.21 mL/min (11/22 03:30) 73.04 mL/min (11/20 04:20) BUN / Creatinine Ratio 17 (11/22 03:30) 19 (11/21 03:20) MPV 9.9 FL (11/22 03:30) 11.1 FL (11/21 03:20) Diff Method AUTOMATED DIFFERENTIAL (11/22 03:30) AUTOMATED DIFFERENTIAL (11/21 03:20) Neutrophil Percent 66.9 % (11/22 03:30) 81.5 % (11/21 03:20) Lymphocyte Percent 18.7 % (11/22 03:30) 9.1 % (11/20 04:20) Monocyte Percent 12.1 % (11/22 03:30) 9.2 % (11/21 03:20) Eosinophil Percent 1.6 % (11/22 03:30) 0.0 % (11/20 04:20) Basophil Percent 0.7 % (11/22 03:30) 0.2 [...] Q4h, PRN: Itching/Pruri (more content not included)... [facility] 11-21-2020 Hospital Progress note Patient: TRINITY GODINEZ MRN: [facility])-[id number] Age: 65 years Sex: Female : 1955 Associated Diagnoses: None Author: Andrew VEGA , Jose Carrasco Supervising Physician Comments Documentation By: Consulting Physician. Assessment Assessment Diagnosis: Osteoarthritis (NIC39-TV M19.90, 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 Plan Failed left TKR [...] lab test) CHEMISTRY (more content not included)... [facility] 11-20-2020 Hospital Progress note Patient: TRINITY GODINEZ MRN: [id number] Age: 65 years Sex: Female : 1955 Associated Diagnoses: None Author: Andrew VEGA , Jose Carrasco Supervising Physician Comments Documentation By: Consulting Physician. Assessment Assessment Diagnosis: Osteoarthritis (QNL75-DS M19.90, 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 Plan Failed left TKR [...] rounds 11/20. Continue to monitor on the LEWIS RUN LUPE protocol. Obesity: BMI 33. follow per [...] 246 (11/20 04:2 (more content not included)... [facility] 11-19-2020 Hospital Progress note Patient: TRINITY GODINEZ MRN: [id number] Age: 65 years Sex: Female : 1955 Associated Diagnoses: None Author: [place] Reynoso MD Assessment Assessment Diagnosis: Osteoarthritis (UNF36-EP M19.90, 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 Plan Failed left TKR [...] (11/19 16:00) Oxygen Delivery: Nasal cannula (11/19 16:) O2 Device Flow: 2 L/min Pain Score: [...] 16:24:17 See Radiology Report for More Detail [facility] 11-19-2020 Mycobacterium sp Org specific cx Ql (Unsp spec) [facility] Microbiology PROCEDURE: Culture AFB and Stain SOURCE: [...] CONTRIBUTOR_SYSTEM, CO_PN NO ACID FAST BACILLI SEEN [facility] Comment on above: Performed By: #### 5 0941-4 ####[address] 11-19-2020 Mycobacterium sp Org specific cx Ql (Unsp spec) [facility] Microbiology PROCEDURE: Culture AFB and Stain SOURCE: [...] CONTRIBUTOR_SYSTEM, CO_PN NO ACID FAST BACILLI SEEN [facility] Comment on above: Performed By: #### 5 0941-4 ####[address] 11-19-2020 Mycobacterium sp Org specific cx Ql (Unsp spec) [facility] Microbiology PROCEDURE: Culture AFB and Stain SOURCE: [...] CONTRIBUTOR_SYSTEM, CO_PN NO ACID FAST BACILLI SEEN [facility] Comment on above: Performed By: #### 5 0941-4 ####[address] 11-19-2020 Mycobacterium sp Org specific cx Ql (Unsp spec) [facility] Microbiology PROCEDURE: Culture AFB and Stain SOURCE: [...] CONTRIBUTOR_SYSTEM, CO_PN NO ACID FAST BACILLI SEEN [facility] Comment on above: Performed By: #### 5 0941-4 ####[address] 11-19-2020 Anesthesiology Preoperative evaluation and management note Patient: TRINITY GODINEZ MRN: ([id number] Age: 65 years Sex: Female : 1955 Associated Diagnoses: None Author: Angel Wyatt MD Preoperative Information Diagnosis No diagnoses charted Planned Procedure Left Knee Radical Debridement Histories Past Medical History: Active Anxiety CHF (congestive heart failure) COPD (chronic obstructive pulmonary disease) Depression Hypertension Osteoarthritis PE (pulmonary thromboembolism) - 2019 Resolved COVID- - 05/2020 Social History: Type of Tobacco [...] Med Reconciliation: Complete 11/19/20 05:37:52 by Sarah RN , Ange R Media Medications: ascorbic acid 1,000 mg = 1 [...] mL, 1,000 m (more content not included)... [facility] 11-17-2020 Hospital Progress note Patient: TRINITY GODINEZ [...] intrathecal local anesthetic injection throughout the procedure. [facility] 11-17-2020 Anesthesiology Preoperative evaluation and management note Patient: TRINITY GODINEZ MRN: [facility])-[id number] Age: 65 years Sex: Female : 1955 [...] 11:29:18 by Fely BERMUDEZ , Teresita Gibbs Media Medications: ascorbic acid 1,000 mg = 1 [...] 20 mL/hr, I (more content not included)... 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 * Acute Pain Management: General Info (Mauritanian) * Opioids: Safe Use (Mauritanian) * Fall Prevention (Mauritanian) * DVT (Deep Vein Thrombosis): Prevention: General Info (Mauritanian) * Constipation (Mauritanian) * Incentive Spirometer: General Info (Mauritanian) * warfarin (oral) (Mauritanian) * Enoxaparin (Lovenox) (Mauritanian) [facility] Attachments The following attachments cannot be sent through Care Everywhere. * DVT (Deep Vein Thrombosis): Prevention: General Info (Mauritanian) * Incentive Spirometer: General Info (Mauritanian) * Fall Prevention (Mauritanian) * Opioids: General Info (Mauritanian) * Constipation (Mauritanian) * warfarin (oral) (Mauritanian) * enoxaparin (Mauritanian) * Antibiotics: General Info (Mauritanian) [facility] Auth/Cert Specialty Diagnoses / Procedures Referred By Mirella benavides Referred To Contact Diagnoses Unilateral primary osteoarthritis, right knee M17.11 Procedures ND ARTHROPLASTY KNEE CONDYLE&PLATEAU MED/LAT CPTS W/WO PATELLA RESURFACING ND ARTHROPLASTY KNEE CONDYLE&PLATEAU MED/LAT CPTS W/WO PATELLA RESURFACING Right total knee arthroplasty Calos Smith MD [address] [place] [address] Referral ID Status Reason Start Date Expiration Date Visits Re quested Visits Authorized [id number] 11/08/2021 1 1 [facility] for visit Narrative* Auth/Cert Specialty Diagnoses / Procedures Referred By Mirella benavides Referred To Contact Diagnoses 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, initial encounter ([facility]) t84.093a Procedures ND RECONSTR DISLOCATING PATELLA W EXT REALIGNMENT AND/OR MUSCLE ADVMNT/RLS ND LATERAL RETINACULAR RELEASE OPEN Left knee extensor mechanism realignment with lateral retinacular release Calos Smith MD [address] [place] [address] [facility] Or [address] [place] [address] Referral ID Status Reason Start Date Expiration Date Visits Re quested Visits Authorized [id number] 1 1 [facility] Summary Purpose Family History No Family [...] Findings Note Patient: TRINITY GODINEZ MRN : ([facility])-[id number] Age: 65 years Sex: Female : 1955 [...] concluded. Note Patient: TRINITY GODINEZ MRN : ([id number] Age: 65 years Sex: Female : 1955 Associated Diagnoses: None Author: Sohan VEGA , Pramod Supervising Physician Comments Documentation By: Consulting Physician. [...] section and content) DATE CREATED AUTHOR 11/28/2020 [facility] DATE CREATED AUTHOR AUTHOR'S ORGANIZ ATION 01/12/2021 [facility] DATE CREATED AUTHOR AUTHOR'S ORGANIZ ATION 03/04/2021 [facility] DATE CREATED AUTHOR AUTHOR'S ORGANIZ ATION 04/25/2021 [facility] DATE CREATED AUTHOR AUTHOR'S ORGANIZ ATION 04/30/2021 [facility] DATE CREATED AUTHOR AUTHOR'S ORGANIZ ATION 09/08/2022 [facility] DATE CREATED AUTHOR AUTHOR'S ORGANIZ ATION 02/21/2023 [facility] DATE CREATED AUTHOR AUTHOR'S ORGANIZ ATION 02/21/2023 [facility] Ordered Prescriptions (unrec ognized section and content) [...] Kym Wilson RN)1422 (Given - Provider: Kym Wilsno RN)2100 (Due) Oxygen Therapy, Adult inhalation, Continuous, [...] Hirsch RN) 0842 (Given - Provider: Teresita Hisrch RN) 1016 (Given - Provider: Kym Wilson RN) gabapentin (NEURONTIN) tablet 1,200 mg 1,200 mg, oral, Nightly, First dose on Sun01/03/22 at 2100 2120 (Given - Provider: Richard Hernandez RN) 2041 [...] 0843 (Given - Provider: Teresita Hirsch RN) 1021 (Not Given - Provider: Kym Wilson RN - Reason: Order parameters not met) magnesium hydroxide (MILK OF MAGNESIA) 400 mg/5 mL suspension 30 mL 30 mL, oral, Daily, First dose on Sun01/04/22 at 0900 0839 (Not Given - Provider: Teresita Hirsch RN - Reason: Patient/Resident/Age nt refused - education provided ) 841 (Given - Provider: Teresita Hirsch RN) 1021 (Not Given - Provider: Kym Wilson RN [...] RN)2041 (Given - Provider: Richard Hernandez RN) 1021 (Not Given - Provider: Kym Wilson RN [...] Hirsch RN) 0611 (Given - Provider: Richard Hernandez, AIDAN) naloxone (NARCAN) injection 0.4 mg 0.4 mg, [...] AIDAN) 0516 (New Bag - Provider: Richard Hernandez, AIDAN) clindamycin (CLEOCIN) capsule 300 mg 300 mg, oral, Every 12 hours, First dose on Sun04/21/22 at 2100, For 10 days, Indication: Prophylaxis-Surgical 2040 (Given - Provider: Fadumo Pittman, AIDAN) 0847 (Given - Provider: Tracy Agudelo RN) [...] Nightly, First dose on Sun04/20/22 at 2100 2024 (Given - Provider: Richard Hernandez, AIDAN) 2039 [...] AIDAN) 0846 (Given - Provider: Marsha Nixon RN)204 (Given - Provider: Fadumo Pittman RN) 0847 (Given - Provider: Tracy Agudelo RN) sodium chloride 0.9 % flush 10 mL(Linked Group 1) 10 mL, intravenous, 2 times daily, First dose on Yvette 04/20/22 at 2100, Recovery & On Unit 2137 (Not Given - Provider: Richard Hernandez RN - Reason: Other - Comment: fluids running) 0900 (Canceled Entry - Provider: Automatic Discharge Provider - Comment: Automatically canceled at discontinue of medication order)204 (Given - Provider: Fadumo Pittman RN) 0852 (Given - Provider: Tracy Agudelo RN) sucralfate (CARAFATE) tablet 1 g 1 g, oral, 4 times daily before meals and nightly, First dose on Yvette 04/20/22 at 2200 2209 (Given - Provider: Richard Hernandez RN) 0630 (Given - Provider: Richard Hernandez RN)1101 (Given - Provider: Marsha Nixon, AIDAN)1624 (Given - Provider: Marsha Nixon RN)2046 (Given [...] dosage forms 2024 (Given - Provider: Richard Hernandez, AIDAN) 2039 [...] Marsha Nixon RN)2047 (Given - Provider: Fadumo Pittman, AIDAN) 0325 (Given - Provider: Fadumo Pittman RN) [...] at 1652 2026 (Given - Provider: Richard Hernandez RN) 0239 (Given - Provider: Richard Hernandez RN)0629 (Given - Provider: Richard Hernandez, AIDAN)1011 [...] % injection (CANCELED) As needed, Starting on Sun04/20/22 at 1448, Intraprocedure 1448 (Given - Provider: VALARIE Brito) sodium chloride 0.9 % flush 10 mL(Linked Group 1) 10 mL, intravenous, As needed, line care, Starting on Yvette 04/20/22 at 1652, Recovery & On Unit sodium chloride 0.9 % irrigation solution (CANCELED) As needed, Starting on Sun04/20/22 at 1449, Intraprocedure 1449 (Given - Provider: [...] intravenous, 2 times daily, First dose on Vyette 04/20/22 at 2100, Recovery & On Unit [...] Care Teams (unrecognized sec tion and content) Service Department Manager Relationship Specialty Start Date End Date Levi Shine MD [address] [place] [address] PCP - General 11/22/20 Service Department Manager Relationship Specialty Start Date End Date Levi Shine MD [address] [place] [address] PCP - General 11/22/20 Service Department Manager Relationship Specialty Start Date End Date Levi Shine MD [address] [place] [address] PCP - General 11/22/20 FOR RECORDS PERTAINING [...] BE BASED ON THE PRIMARY CLINICAL RECORDS. [facility] [email or web address] [facility]. provides no warranty or guarantee of the accuracy or completeness of information in this document.
--- NOTE | 2024-09-13 15:28 | ECG_ITS ---
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 Measurements Intervals [place]ourt Rate: 108 P: 79 MO: 150 QRS: 53 QRSD: 66 T: 61 QT: 322 QTc: 385 Interpretive Statements 1120 Sinus tachycardia Otherwise normal ECG Compared to ECG 09/08/2024 08:45:18 Heart rate has increased Electronically Signed On 09-14-2024 8:48:11 EDT by GELACIO SHORT M.D.
--- NOTE | 2024-09-13 15:28 | XR_ITS ---
The [address] [address] Patient Name: GABRIELA GODINEZ MRN: [id number] date: 1955 Sex: F Assigned Patient Location: ER Current Patient Location: ER Accession/Order Number: [id number] Exam Date: 09/13/2024 15:56 Report Date: 09/13/2024 15:58 At the request of: ARIANNA TYSON MD Procedure: XR chest 1V Plain film chest Single view HISTORY: Fell one week ago. COMPARISON: CT of the chest 09/08/2024 FINDINGS: SUPPORT DEVICES: None POSTSURGICAL CHANGES: Right axillary surgical clips. HEART: Within normal limits PULMONARY ABRAN: Within normal limits MEDIASTINUM: Unremarkable LUNGS AND PLEURA: The basilar linear atelectasis/scarring redemonstrated. No new consolidation, pleural effusion or pneumothorax. BONY STRUCTURES: Intact ADDITIONAL FINDINGS None XR/XR chest 1V IMPRESSION: No acute process. Impression dictated by: Harinder Barrientos M.D. 09/13/2024 3:58 PM Dictation [facility] Electronically authenticated by: [id number] Y Date: 09/13/2024 15:58
[2024-09-13 16:05] LABS: Basophils Absolute Auto 0.1 10^3/uL (0.0-0.1); Eosinophils Absolute Auto 0.2 10^3/uL (0.0-0.7); Eosinophils Percent Auto 3.1 % (0.9-7.0); Hematocrit 36.4 % (36.0-48.0); Hemoglobin 11.9 g/dL (12.0-16.0); Immature Granulocytes Abs Auto 0.01 10^3/uL (0.00-0.03); Immature Granulocytes Pct Auto 0.1 % (0.0-0.5); Lymphocytes Absolute Auto 1.9 10^3/uL (1.2-3.8); Lymphocytes Percent Auto 24.1 % (20.5-60.0); Mean Corpuscular HGB Conc 32.7 g/dL (29.9-35.2); Mean Corpuscular Hemoglobin 32.7 pg (26.7-34.0); Mean Platelet Volume 12.1 fL (9.5-13.5); Monocytes Absolute Auto 0.9 10^3/uL (0.3-0.8); Monocytes Percent Auto 11.6 % (1.7-12.0); Neutrophils Absolute Auto 4.6 10^3/uL (1.4-6.5); Neutrophils Percent Auto 60.1 % (43.0-75.0); Platelet Count 205 10^3/uL (150-450); Red Blood Count 3.64 10^6/uL (4.20-5.40); White Blood Count 7.7 10^3/uL (4.0-11.0)
[2024-09-13 16:20] LABS: Lactate/Lactic Acid 0.9 mmol/L (0.4-2.0)
[2024-09-13 16:27] LABS: Alanine Aminotransferase 29 U/L (14-59); Albumin Globulin Ratio 0.9; Albumin Level 3.4 g/dL (3.4-5.0); Alkaline Phosphatase 126 U/L (46-116); Anion Gap 19.7; Aspartate Amino Transferase 30 U/L (15-37); Bilirubin Total 0.9 mg/dL (0.2-1.0); Calcium 9.4 mg/dL (8.5-10.1); Carbon Dioxide 22.5 mmol/L (21.0-32.0); Chloride 101 mmol/L (98-107); Estimated GFR (African America >60 (>=60 mL/min/1.73m^2); Estimated GFR (Non-African Ame 50 (>=60 mL/min/1.73m^2); Globulin 3.6 g/dL; Glucose 94 mg/dL (74-106); Potassium 4.2 mmol/L (3.5-5.1); Sodium 139 mmol/L (136-145)
[2024-09-13 16:28] LABS: INR 0.95; Prothrombin Time 10.1 sec (9.0-11.6)
[2024-09-13 16:32] LABS: D Dimer 1.75 mg/L FEU (<=0.59)
[2024-09-13] MEDS: METHYLPREDNISOLONE SOD SUCC PF 125 MG/2 ML VIAL IVP (16:37)
--- NOTE | 2024-09-13 18:24 | ED.SOB1 ---
HPI - SOB/Dyspnea General Chief Complaint: Shortness of Breath/Dyspnea Stated Complaint: sob Time Seen by Provider: 09/13/24 15:27 Source: patient Mode of arrival: ambulance History of Present Illness HPI Narrative: The patient is a 69 years old female who have a history of COPD is coming to the ER with shortness of breath that started over the last few days although the patient was evaluated last week for falls and dehydration, at that time she according to her history she was supposed to be admitted because of her history of multiple falls and generalized weakness. The patient refused to be admitted then The patient had shortness of breath for the last few days and she was just evaluated by her primary care doctor. She has been using her inhaler with no improvement No cough no fever no runny nose no other concern no chest pain no abdominal pain Related Data Home Medications ?Medication ?Instructions ?Recorded ?Confirmed albuterol sulfate 90 mcg/actuation 2 inh inhalation Q6H PRN shortness 09/26/22 09/13/24 aerosol inhaler of breath or wheezing cetirizine 10 mg tablet 10 mg PO DAILY 09/26/22 09/13/24 gabapentin 600 mg tablet 1,200 mg PO .qhs 09/26/22 09/13/24 isosorbide mononitrate 60 mg 60 mg PO .q24 09/26/22 09/13/24 tablet,extended release 24 hr metoclopramide HCl 10 mg tablet 10 mg PO .COMPLEX 09/26/22 09/13/24 metoprolol succinate 100 mg 100 mg PO Q12H 09/26/22 09/13/24 tablet,extended release 24 hr pantoprazole 40 mg tablet,delayed 40 mg PO DAILY 09/26/22 09/13/24 release potassium chloride 10 mEq 10 meq PO BID 09/26/22 09/13/24 tablet,extended release(part/cryst) gabapentin 600 mg tablet 600 mg PO QAM 04/28/23 09/13/24 venlafaxine 150 mg 150 mg PO DAILY 06/25/23 09/13/24 capsule,extended release 24 hr venlafaxine 75 mg capsule,extended 75 mg PO DAILY 06/25/23 09/13/24 release 24 hr diazepam 2 mg tablet 2 mg PO TID PRN anxiety 09/13/24 09/13/24 ondansetron 4 mg disintegrating 4 mg PO QID PRN nausea and vomiting 09/13/24 09/13/24 tablet temazepam 30 mg capsule 30 mg PO QPM PRN sleep 09/13/24 09/13/24 Previous Rx's ?Medication ?Instructions ?Recorded methocarbamol 500 mg tablet 500 mg PO Q8H PRN muscle pain #10 09/08/24 tabs tramadol 50 mg tablet 50 mg PO Q8H PRN pain #14 tabs 09/08/24 Allergies Allergy/AdvReac Type Severity Reaction Status Date / Time NSAIDS (Non-Steroidal Allergy Severe Anaphylaxis Verified 12/03/23 12:54 Anti-Inflamma vancomycin Allergy hair falls Verified 12/03/23 12:54 out morphine AdvReac Intermediate Hives Verified 12/03/23 12:54 baclofen AdvReac Confusion Verified 12/03/23 12:54 Review of Systems ROS Status of ROS 10 or more systems reviewed and unremarkable except as noted in history and below PFSH PFSH Medical History GERD (gastroesophageal reflux disease) ?K21.9 - Gastro-esophageal reflux disease without esophagitis (ICD-10) Anxiety ?F41.9 - Anxiety disorder, unspecified (ICD-10) Seasonal allergies ?J30.2 - Other seasonal allergic rhinitis (ICD-10) Bronchitis ?J40 - Bronchitis, not specified as acute or chronic (ICD-10) COPD (chronic obstructive pulmonary disease) ?J44.9 - Chronic obstructive pulmonary disease, unspecified (ICD-10) Hypertension ?I10 - Essential (primary) hypertension (ICD-10) Surgical History History of appendectomy ?Z90.49 - Acquired absence of other specified parts of digestive tract (ICD-10) History of hysterectomy ?Z90.710 - Acquired absence of both cervix and uterus (ICD-10) History of left hip replacement ?Z96.642 - Presence of left artificial hip joint (ICD-10) History of right hip replacement ?Z96.641 - Presence of right artificial hip joint (ICD-10) History of total right knee replacement ?Z96.651 - Presence of right artificial knee joint (ICD-10) History of left knee replacement ?Z96.652 - Presence of left artificial knee joint (ICD-10) Family History Mother Family history of CHF (congestive heart failure) Family history of cancer Family history of diabetes mellitus Family history of hypertension Family history of myocardial infarction Brother Family history of cancer Family history of hypertension Social History Within the past year, how often did you have a drink containing alcohol: never Score interpretation: A score less than 3 is consistent with normal alcohol consumption. Smoking status: Light tobacco smoker Non-prescribed substance use: denies use Previous occupational history: disabled Highest level of school completed/degree received: some college, no degree Are you now , , , , never or living with a partner: Little interest or pleasure in doing things: not at all Feeling down, depressed, or hopeless: not at all Feel stressed/tense/nervous/anxious/difficulty sleeping: only a little Exam Narrative Exam Narrative: Nurses notes and vital signs reviewed and patient is not hypoxic. General: Well-appearing and in no apparent distress. Skin: Warm, dry, no pallor noted. No rash. Head: Normocephalic, atraumatic. Neck: Supple, non-tender. Eye: Pupils are equal, round and EOMI. No scleral icterus. Ears, Nose, Mouth, and Throat: TM are clear, no nasal mucosal hypertrophy. Oral mucosa is moist, no posterior oropharynx erythema, uvula is mid-line Cardiovascular: Regular Rate and Rhythm without murmur, gallop or rub. Respiratory: Distant breathing sound bilaterally Back: No midline thoracic or lumbar vertebral tenderness. No CVA tenderness Musculoskeletal: normal ROM, no calf or popliteal tenderness, mild 1+ edema bilaterally GI: Abdomen is soft, non-distended. Normal bowel sounds. No masses appreciated. No tenderness to palpation. No rebound, guarding, or rigidity noted. Neurological: A&O x4. No cranial nerve dysfunction observed. No truncal ataxia. Constitutional Vital Signs, click to edit/add: Last Vital Signs Temp 98.6 F 09/13/24 15:17 Pulse 108 H 09/13/24 18:08 Resp 16 09/13/24 18:08 BP 131/75 09/13/24 18:08 Pulse Ox 77 L 09/13/24 18:08 O2 Del Method Room Air 09/13/24 15:17 Course Vital Signs Vital signs: Vital Signs Temperature 98.6 F 09/13/24 15:17 Pulse Rate 113 H 09/13/24 15:17 Respiratory Rate 24 H 09/13/24 15:17 Blood Pressure 157/97 H 09/13/24 15:17 Pulse Oximetry 92 L 09/13/24 15:17 Oxygen Delivery Method Room Air 09/13/24 15:17 Temperature 98.6 F 09/13/24 15:17 Pulse Rate 108 H 09/13/24 18:08 Respiratory Rate 16 09/13/24 18:08 Blood Pressure 131/75 09/13/24 18:08 Pulse Oximetry 77 L 09/13/24 18:08 Oxygen Delivery Method Room Air 09/13/24 15:17 MDM - SOB/Dyspnea MDM Narrative Medical decision making narrative: The patient was hard to stick and we obtained an ultrasound-guided IV access to the right upper extremity The patient CBC showed no leukocytosis the chest x-ray showed no acute pathology as well She was noted to be tachycardic on arrival but she was already evaluated by the EMS and they provided with a breathing treatment The patient was not wheezing at any time for my evaluation but she does have history of COPD We did provide her here with Solu-Medrol Her BNP was not elevated The patient EKG in the ER was showing sinus rhythm with a heart rate of 108 and sinus tachycardia no ST elevation or depression With the patient presentation the fact that she was tachycardic on arrival in addition to her shortness of breath, with elevated D-dimer the patient had CT PE ordered The patient really was evaluated almost a week ago and she had multiple falls with multiple broken ribs in her x-ray that are healing, then she was evaluated to be dehydrated and she was provided IV fluid. Lab Data Labs: Lab Results 09/13/24 Range/Units 15:48 WBC 7.7 (4.0-11.0) 10^3/uL RBC 3.64 L (4.20-5.40) 10^6/uL Hgb 11.9 L (12.0-16.0) g/dL Hct 36.4 (36.0-48.0) % MCV 100.0 H (81.0-99.0) fL MCH 32.7 (26.7-34.0) pg MCHC 32.7 (29.9-35.2) g/dL RDW 13.0 (11.0-15.0) % Plt Count 205 (150-450) 10^3/uL MPV 12.1 (9.5-13.5) fL Neut % (Auto) 60.1 (43.0-75.0) % Lymph % (Auto) 24.1 (20.5-60.0) % [place] % (Auto) 11.6 (1.7-12.0) % Eos % (Auto) 3.1 (0.9-7.0) % Baso % (Auto) 1.0 (0.2-2.0) % Neut # (Auto) 4.6 (1.4-6.5) 10^3/uL Lymph # (Auto) 1.9 (1.2-3.8) 10^3/uL [place] # (Auto) 0.9 H (0.3-0.8) 10^3/uL Eos # (Auto) 0.2 (0.0-0.7) 10^3/uL Baso # (Auto) 0.1 (0.0-0.1) 10^3/uL Abs Immat Gran (auto) 0.01 (0.00-0.03) 10^3/uL Imm/Tot Granulo (auto) 0.1 (0.0-0.5) % PT 10.1 (9.0-11.6) sec INR 0.95 D-Dimer 1.75 H* (<=0.59) mg/L FEU Sodium 139 (136-145) mmol/L Potassium 4.2 (3.5-5.1) mmol/L Chloride 101 (98-107) mmol/L Carbon Dioxide 22.5 (21.0-32.0) mmol/L Anion Gap 19.7 BUN 24.0 H (7.0-18.0) mg/dL Creatinine 1.09 H (0.55-1.02) mg/dL Est GFR ( Amer) >60 (>=60 mL/min/1.73m^2) Est GFR (Non-Af Amer) 50 L (>=60 mL/min/1.73m^2) BUN/Creatinine Ratio 22.0 Glucose 94 (74-106) mg/dL Lactate 0.9 (0.4-2.0) mmol/L Calcium 9.4 (8.5-10.1) mg/dL Total Bilirubin 0.9 (0.2-1.0) mg/dL AST 30 (15-37) U/L ALT 29 (14-59) U/L Alkaline Phosphatase 126 H (46-116) U/L Troponin I High Sens 9.0 (4.0-51.3) pg/mL NT-Pro-B Natriuret Pep 238.0 (<=900.0) pg/mL Total Protein 7.0 (6.4-8.2) g/dL Albumin 3.4 (3.4-5.0) g/dL Globulin 3.6 g/dL Albumin/Globulin Ratio 0.9 Discharge Plan Discharge Patient Disposition: Still a Patient
[2024-09-13] MEDS: 0.9 % SODIUM CHLORIDE 1,000 ML 1000 ML IV (19:19)
--- OUTSIDE RECORDS SUMMARY | 2024-09-13 21:41 | XMS_ITS | CCD ---
Author Organization [facility] Care Team Providers Care Analytics Developer Name Role Phone CALOS SMITH JR. Referring [...] Unavailable HOY, LEVI Primary Care Unavailable MIL GARZA~[id number], [place] SEA [phone] MIL Referring Unavailable HOY, LEVI Primary Care [...] ceFAZolin; Translations: [CEFAZOLIN] Drug Allergy 1 Anaphylaxis [facility] (5 sources) Morphine; Translations: [MORPHINE] Drug Allergy 1 Hives, Itching [facility] (8 sources) NSAIDs; Translations: [NSAIDS (NON-STEROIDAL ANTI-INFLAMMATOR Y DRUG)] Drug Allergy 3 Anaphylaxis [facility] (5 sources) Vancomycin; Translations: [VANCOMYCIN] Drug Allergy 1 Other [facility] (1 source) Aspirin Drug Allergy 0 [facility] (3 sources) ceFAZolin Drug Allergy 5 [facility] (1 source) Morphine Drug Allergy 0 [facility] (2 sources) Morphine Drug Allergy 3 [facility] (2 sources) Vancomycin Drug Allergy [facility] Medications Current Medications Medication Drug Class(es) [...] 20 mg/ml oral solution (2 sources) Uncompetitive B-ypkbks-A-aspartate Receptor Antagonist, Sigma-1 Agonist End: 12-29-2021 take [...] mg docusate sodium 50 mg / sennosides, long-term 8.6 mg oral tablet (2 sources) Start: [...] at 0900 take 2 tablets by mo [facility] at bedtime gabapentin (NEURONTIN) 600 mg tablet Take 2 tablets (1,200 mg total) by mouth at bedtime. 0 Active [facility] gabapentin (NEURONTIN) 600 mg [...] crush or chew. take 1 tablet by arni th once daily isosorbide mononitrate (IMDUR) 60 [...] Oxygen Therapy , Adult polyethylene glycol 3350 [id number] mg powder for oral solution (6 sources) [...] administer immediately). take 1 capsule by mo [facility] twice daily potassium chloride (MICRO-K) 10 [...] for nausea or vomiting. 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; Translations: [FOOD SAFETY FIELD SPECIALIST CURRNT USE ANTICOAGULANTS] Onset: 08-25-2022 Episodic Other [...] 02-19-2023 C-Reactive Protein 1.0 mg/dL Normal 0.0-1.0 [facility] Comment on above: Performed By: #### 1 988-5 #### [facility] ([facility] [address] [place] [address] ESR (Bld) [Velocity]on 02-19 Basophils (Bld) [#/Vol] 0.09 10*3/uL Normal 0.00-0.20 [facility] Comment on above: Performed By: #### 5 75-1 #### [facility] ([facility] [address] [place] [address] Basophils/100 WBC (Bld) 1.1 % Normal 0.0-2.0 [facility] Comment on above: Performed By: #### 5 75-1 #### [facility] ([facility] [address] [place] [address] Eosinophils (Bld) [#/Vol] 0.17 10*3/uL Normal 0.00-0.70 [facility] Comment on above: Performed By: #### 5 75-1 #### [facility] [place] [facility] [address] [place] [address] Eosinophils/100 WBC (Bld) 2.0 % Normal 0.0-7.0 [facility] Comment on above: Performed By: #### 5 75-1 #### [facility] [place] [facility] [address] [place] [address] Erythrocyte distribution width (RBC) [Ratio] 13.5 % Normal 11.0-14.8 [facility] Comment on above: Performed By: #### 5 75-1 #### [facility] [place] [facility] [address] [place] [address] Hematocrit (Bld) [Volume fraction] 39.9 % Normal 34.3-47.9 [facility] Comment on above: Performed By: #### 5 75-1 #### [facility] [place] [facility] [address] [place] [address] Hemoglobin (Bld) [Mass/Vol] 12.7 g/dL Normal 12.0-16.0 [facility] Comment on above: Performed By: #### 5 75-1 #### [facility] [place] [facility] [address] [place] [address] Immature granulocytes (Bld) [#/Vol] 0.02 10*3/uL Normal 0.00-0.10 [facility] Comment on above: Performed By: #### 5 75-1 #### [facility] [place] [facility] [address] [place] [address] Immature granulocytes/100 WBC (Bld) 0.2 % Normal 0.0-1.2 [facility] Comment on above: Performed By: #### 5 75-1 #### [facility] [place] [address] [place] [address] Lymphocytes (Bld) [#/Vol] 2.55 10*3/uL Normal 1.00-4.80 [facility] Comment on above: Performed By: #### 5 75-1 #### [facility] [place] [facility] [address] [place] [address] Lymphocytes/100 WBC (Bld) 30.6 % Normal 17.9-49.6 [facility] Comment on above: Performed By: #### 5 75-1 #### [facility] [place] [facility] [address] [place] [address] MCH 31.4 pcg Normal 27.0-34.0 [facility] Comment on above: Performed By: #### 5 75-1 #### [facility] [address] [place] [address] MCHC (RBC) [Mass/Vol] 31.8 g/dL Normal 30.8-35.3 [facility] Comment on above: Performed By: #### 5 75-1 #### [facility] [place] [facility] [address] [place] [address] MCV (RBC) [Entitic vol] 98.5 fL High 80.0-97.0 [facility] Comment on above: Performed By: #### 5 75-1 #### [facility] [place] [facility] [address] [place] [address] Monocytes (Bld) [#/Vol] 0.57 10*3/uL Normal 0.00-0.90 [facility] Comment on above: Performed By: #### 5 75-1 #### [facility] [place] [facility] [address] [place] [address] Monocytes/100 WBC (Bld) 6.9 % Normal 0.0-12.0 [facility] Comment on above: Performed By: #### 5 75-1 #### [facility] [place] [facility] [place] [address] Neutrophils Absolute 4.92 K/mcL Normal 1.80-7.70 Spike benavides [facility] Comment on above: Performed By: #### 5 75-1 #### [facility] [place] [facility] [address] [place] [address] Neutrophils/100 WBC (Bld) 59.2 % Normal 38.1-75.5 [facility] Comment on above: Performed By: #### 5 75-1 #### [facility] [place] [facility] [address] [place] [address] Platelet mean volume (Bld) [Entitic vol] 11.5 fL Normal 6.2-12.1 [facility] Comment on above: Performed By: #### 5 75-1 #### [facility] [place] [facility] [address] [place] [address] Platelets (Bld) [#/Vol] 262 10*3/uL Normal 142-424 [facility] Comment on above: Performed By: #### 5 75-1 #### [facility] [place] [facility] [address] [place] [address] RBC (Bld) [#/Vol] 4.05 10*6/uL Normal 3.74-5.34 [facility] Comment on above: Performed By: #### 5 75-1 #### [facility] [place] [facility] [address] [place] [address] WBC (Bld) [#/Vol] 8.3 10*3/uL Normal 4.6-10.2 [facility] Comment on above: Performed By: #### 5 75-1 #### [facility] [place] [facility] [address] [place] [address] CBC AUTO DIFFon 08-30-2022 BASO # 0.1 103/ul Normal 0.0-0.1 [facility] Comment on above: Performed By: #### C BC #### [facility] [address] [place], [place] [address] Dr. Jeffrey Thomas Basophils/100 WBC (Bld) 0.9 % Normal 0.2-2.0 [facility] Comment on above: Performed By: #### C BC #### [facility] [address] [place] [address] Dr. Jeffrey Thomas EO # 0.2 103/ul Normal 0.0-0.7 [facility] Comment on above: Performed By: #### C BC #### [facility] [address] [place] [address] Dr. Jeffrey Thomas Eosinophils/100 WBC (Bld) 3.9 % Normal 0.9-7.0 [facility] Comment on above: Performed By: #### C BC #### [facility] [address] [place] [address] Dr. Jeffrey Thomas Erythrocyte distribution width (RBC) [Ratio] 14.6 % Normal 11.0-15.0 [facility] Comment on above: Performed By: #### C BC #### [facility] [address] [place] [address] Dr. Jeffrey Thomas Hematocrit (Bld) [Volume fraction] 32.7 % Critically low 36.0-48.0 [facility] Comment on above: Performed By: #### C BC #### [facility] [address] [place] [address] Dr. Jeffrey Thomas Hemoglobin (Bld) [Mass/Vol] 10.3 g/dL Critically low 12.0-16.0 [facility] Comment on above: Performed By: #### C BC #### [facility] [address] [place] [address] Dr. Jeffrey Thomas IG # 0.01 10e3/ul Normal 0.00-0.03 [facility] Comment on above: Performed By: #### C BC #### [facility] [address] [place] [address] Dr. Jeffrey Thomas IG % 0.2 % Normal 0.0-0.5 [facility] Comment on above: Performed By: #### C BC #### [facility] [address] [place] [address] Dr. Jeffrey Thomas LYMPH # 1.7 103/ul Normal 1.2-3.8 [facility] Comment on above: Performed By: #### C BC #### [facility] [address] [place] [address] Dr. Jeffrey Thomas Lymphocytes/100 WBC (Bld) 30.8 % Normal 20.5-60.0 [facility] Comment on above: Performed By: #### C BC #### [facility] [address] [place] [address] Dr. Jeffrey Thomas MANUAL DIFF REQ NO Normal [facility] Comment on above: Performed By: #### C BC #### [facility] [address] [place] [address] Dr. Jeffrey Thmoas MCH (RBC) [Entitic mass] 30.2 pg Normal 26.7-34.0 [facility] Comment on above: Performed By: #### C BC #### [facility] [address] [place] [address] Dr. Jeffrey Thomas MCHC (RBC) [Mass/Vol] 31.5 g/dL Normal 29.9-35.2 [facility] Comment on above: Performed By: #### C BC #### [facility] [address] [place] [address] Dr. Jeffrey Thomas MCV (RBC) [Entitic vol] 95.9 fL Normal 81.0-99.0 [facility] Comment on above: Performed By: #### C BC #### [facility] [address] [place] [address] Dr. Jeffery Thomas MONO # 0.4 103/ul Normal 0.3-0.8 [facility] Comment on above: Performed By: #### C BC #### [facility] [address] [place] [address] Dr. Jeffrey Thomas Monocytes/100 WBC (Bld) 7.8 % Normal 1.7-12.0 [facility] Comment on above: Performed By: #### C BC #### [facility] [address] [place] [address] Dr. Jeffrey Thomas NEUT # 3.2 103/ul Normal 1.4-6.5 [facility] Comment on above: Performed By: #### C BC #### [facility] [address] [place] [address] [address] Jeffrey Thomas Neutrophils/100 WBC (Bld) 56.4 % Normal 43.0-75.0 [facility] Comment on above: Performed By: #### C BC #### [facility] [address] [place] [address] [address] Jeffrey Thomas Platelet mean volume (Bld) [Entitic vol] 12.9 fL Normal 9.5-13.5 [facility] Comment on above: Performed By: #### C BC #### [facility] [address] [place] [address] [address] Jeffrey Thomas PLT 149 103/ul Critically low 150-450 [facility] Comment on above: Performed By: #### C BC #### [facility] [address] [place] [address] Dr. Jeffrey Thomas RBC 3.41 106/ul Critically low 4.20-5.40 [facility] Comment on above: Performed By: #### C BC #### [facility] [address] [place] [address] [address] Jeffrey Thomas WBC 5.6 103/ul Normal 4.0-11.0 [facility] Comment on above: Performed By: #### C BC #### [facility] [address] [place] [address] Dr. Jeffrey Thomas HEPATITIS PANEL, [facility] HBsAg Screen Negative Normal Negative [facility] Comment on above: Performed By: #### C MP #### [facility] [address] [place] [address] Dr. Jeffrey Thomas HCV AB Non-Reactive Normal Non Reactive [facility] Comment on above: Performed By: #### C MP #### [facility] [address] [place] [address] Dr. Jeffrey Thomas Hep A Ab, IgM Negative Normal Negative [facility] Comment on above: Performed By: #### C MP #### [facility] [address] [place] [address] Dr. Jeffrey Thomas Hep B Core Ab, IgM Negative Normal Negative [facility] Comment on above: Performed By: #### C MP #### [facility] [address] [place] [address] [address] Jeffrey Thomas NM HEPATOBILIARY SCAN W [...] GARO CASILLAS Date: 2022-08-30 07:23 Normal [facility] PROF 14(COMP METB)on 023 Albumin [Mass/Vol] 2.5 g/dL Critically low 3.4-5.0 Th [facility] Comment on above: Performed By: #### T 4LC #### [facility] [address] [place] [address] [address] Jeffrey Thomas Albumin/Globulin [Mass ratio] 0.9 {ratio} Normal [facility] Comment on above: Performed By: #### T 4LC #### [facility] [address] [place] [address] [address] Jeffrey Thomas ALP [Catalytic activity/Vol] 97 U/L Normal 46-116 [facility] Comment on above: Performed By: #### T 4LC #### [facility] [address] [place] [address] [address] Jeffrey Thomas ALT [Catalytic activity/Vol] 39 U/L Normal 14-59 [facility] Comment on above: Performed By: #### T 4LC #### [facility] [address] [place] [address] [address] Jeffrey Thomas Anion gap [Moles/Vol] 12.9 mmol/L Normal [facility] Comment on above: Performed By: #### T 4LC #### [facility] [address] [place] [address] [address] Jeffrey Thomas AST [Catalytic activity/Vol] 19 U/L Normal 15-37 [facility] Comment on above: Performed By: #### T 4LC #### [facility] [address] [place] [address] [address] Jeffrey Thomas Bilirubin [Mass/Vol] 0.2 mg/dL Normal 0.2-1.0 [facility] Comment on above: Performed By: #### T 4LC #### [facility] [address] [place] [address] [address] Jeffrey Thomas Calcium [Mass/Vol] 8.2 mg/dL Critically low 8.5-10.1 [facility] Comment on above: Performed By: #### T 4LC #### [facility] [address] [place] [address] [address] Jeffrey Thomas Chloride [Moles/Vol] 111 mmol/L Critically high 98-107 [facility] Comment on above: Performed By: #### T 4LC #### [facility] [address] [place] [address] [address] Jeffrey Thomas CO2 [Moles/Vol] 24.2 mmol/L Normal 21.0-32.0 [facility] Comment on above: Performed By: #### T 4LC #### [facility] [address] [place] [address] [address] Jeffrey Thomas Creatinine [Mass/Vol] 1.05 mg/dL Critically high 0.55-1.02 [facility] Comment on above: Performed By: #### T 4LC #### [facility] [address] [place] [address] [address] Jeffrey Thomas EGFR-AF GIBRALTARIAN >60 Normal >=60 [facility] Comment on above: Performed By: #### T 4LC #### [facility] [address] [place] [address] [address] Jeffrey Thomas EGFR-NON AF GIBRALTARIAN 53 mL/min/1.73m2 Critically low >=60 [facility] Comment on above: Performed By: #### T 4LC #### [facility] [address] [place] [address] [address] Jeffrey Thomas Globulin (S) [Mass/Vol] 2.7 g/dL Normal [facility] Comment on above: Performed By: #### T 4LC #### [facility] [address] [place] [address] [address] Jeffrey Thomas Glucose [Mass/Vol] 109 mg/dL Critically high 74-106 [facility] Comment on above: Performed By: #### T 4LC #### [facility] [address] [place] [address] Dr. Jeffrey Thomas Potassium [Moles/Vol] 4.1 mmol/L Normal 3.5-5.1 [facility] Comment on above: Performed By: #### T 4LC #### [facility] [address] [place] [address] [address] Jeffrey Thomas Protein [Mass/Vol] 5.2 g/dL Critically low 6.4-8.2 Th [facility] Comment on above: Performed By: #### T 4LC #### [facility] [address] [place] [address] [address] Jeffrey Thomas Sodium [Moles/Vol] 144 mmol/L Normal 136-145 [facility] Comment on above: Performed By: #### T 4LC #### [facility] [address] [place] [address] [address] Jeffrey Thomas Urea nitrogen [Mass/Vol] 11.0 mg/dL Normal 7.0-18.0 [facility] Comment on above: Performed By: #### T 4LC #### [facility] [address] [place] [address] [address] Jeffrey Thomas Urea nitrogen/Creatinine [Mass ratio] 10.5 mg/mg Normal [facility] Comment on above: Performed By: #### T 4LC #### [facility] [address] [place] [address] Dr. Jeffrey Thomas CBC AUTO DIFFon 08-29-2022 BASO # 0.1 103/ul Normal 0.0-0.1 [facility] Comment on above: Performed By: #### T 4LC #### [facility] [address] [place] [address] Dr. Jeffrey Thomas Basophils/100 WBC (Bld) 1.2 % Normal 0.2-2.0 [facility] Comment on above: Performed By: #### T 4LC #### [facility] [address] [place] [address] Dr. Jeffrey Thomas EO # 0.2 103/ul Normal 0.0-0.7 [facility] Comment on above: Performed By: #### T 4LC #### [facility] [address] [place] [address] Dr. Jeffrey Thomas Eosinophils/100 WBC (Bld) 4.1 % Normal 0.9-7.0 [facility] Comment on above: Performed By: #### T 4LC #### [facility] [address] [place] [address] Dr. Jeffrey Thomas Erythrocyte distribution width (RBC) [Ratio] 14.6 % Normal 11.0-15.0 [facility] Comment on above: Performed By: #### T 4LC #### [facility] [address] [place] [address] Dr. Jeffrey Thomas Hematocrit (Bld) [Volume fraction] 33.6 % Critically low 36.0-48.0 [facility] Comment on above: Performed By: #### T 4LC #### [facility] [address] [place] [address] Dr. Jeffrey Thomas Hemoglobin (Bld) [Mass/Vol] 10.3 g/dL Critically low 12.0-16.0 [facility] Comment on above: Performed By: #### T 4LC #### [facility] [address] [place] [address] Dr. Jeffrey Thomas IG # 0.01 10e3/ul Normal 0.00-0.03 [facility] Comment on above: Performed By: #### T 4LC #### [facility] [address] [place] [address] Dr. Jeffrey Thomas IG % 0.2 % Normal 0.0-0.5 [facility] Comment on above: Performed By: #### T 4LC #### [facility] [address] [place] [address] Dr. Jeffrey Thomas LYMPH # 1.7 103/ul Normal 1.2-3.8 [facility] Comment on above: Performed By: #### T 4LC #### [facility] [address] [place] [address] Dr. Jeffrey Thomas Lymphocytes/100 WBC (Bld) 34.4 % Normal 20.5-60.0 [facility] Comment on above: Performed By: #### T 4LC #### [facility] [address] [place] [address] Dr. Jeffrey Thomas MANUAL DIFF REQ NO Normal [facility] Comment on above: Performed By: #### T 4LC #### [facility] [address] [place] [address] Dr. Jeffrey Thomas MCH (RBC) [Entitic mass] 29.5 pg Normal 26.7-34.0 [facility] Comment on above: Performed By: #### T 4LC #### [facility] [address] [place] [address] Dr. Jeffrey Thomas MCHC (RBC) [Mass/Vol] 30.7 g/dL Normal 29.9-35.2 [facility] Comment on above: Performed By: #### T 4LC #### [facility] [address] [place] [address] Dr. Jeffrey Thomas MCV (RBC) [Entitic vol] 96.3 fL Normal 81.0-99.0 [facility] Comment on above: Performed By: #### T 4LC #### [facility] [address] [place] [address] Dr. Jeffrey Thomas MONO # 0.4 103/ul Normal 0.3-0.8 [facility] Comment on above: Performed By: #### T 4LC #### [facility] [address] [place] [address] [address] Jeffrey Thomas Monocytes/100 WBC (Bld) 8.2 % Normal 1.7-12.0 [facility] Comment on above: Performed By: #### T 4LC #### [facility] [address] [place] [address] [address] Jeffrey Thomas NEUT # 2.5 103/ul Normal 1.4-6.5 [facility] Comment on above: Performed By: #### T 4LC #### [facility] [address] [place] [address] [address] Jeffrey Thomas Neutrophils/100 WBC (Bld) 51.9 % Normal 43.0-75.0 [facility] Comment on above: Performed By: #### T 4LC #### [facility] [address] [place] [address] Dr. Jeffrey Thomas Platelet mean volume (Bld) [Entitic vol] 12.5 fL Normal 9.5-13.5 [facility] Comment on above: Performed By: #### T 4LC #### [facility] [address] [place] [address] Dr. Jeffrey Thomas PLT 157 103/ul Normal 150-450 [facility] Comment on above: Performed By: #### T 4LC #### [facility] [address] [place] [address] [address] Jeffrey Thomas RBC 3.49 106/ul Critically low 4.20-5.40 [facility] Comment on above: Performed By: #### T 4LC #### [facility] [address] [place] [address] Dr. Jeffrey Thomas WBC 4.9 103/ul Normal 4.0-11.0 [facility] Comment on above: Performed By: #### T 4LC #### [facility] [address] [place] [address] Dr. Jeffrey Thomas PROF 14(COMP METB)on 023 Albumin [Mass/Vol] 2.6 g/dL Critically low 3.4-5.0 [facility] Comment on above: Performed By: #### C MP #### [facility] [address] [place] [address] [address] Jeffrey Thomas Albumin/Globulin [Mass ratio] 1.0 {ratio} Normal [facility] Comment on above: Performed By: #### C MP #### [facility] [address] [place] [address] [address] Jeffrey Thomas ALP [Catalytic activity/Vol] 94 U/L Normal 46-116 [facility] Comment on above: Performed By: #### C MP #### [facility] [address] [place] [address] [address] Jeffrey Thomas ALT [Catalytic activity/Vol] 53 U/L Normal 14-59 [facility] Comment on above: Performed By: #### C MP #### [facility] [address] [place] [address] Dr. Jeffrey Thomas Anion gap [Moles/Vol] 11.2 mmol/L Normal Th [facility] Comment on above: Performed By: #### C MP #### [facility] Laboratory [address] [place] [address] Dr. Jeffrey Thomas AST [Catalytic activity/Vol] 26 U/L Normal 15-37 [facility] Comment on above: Performed By: #### C MP #### [facility] [address] [place] [address] Dr. Jeffrey Thomas Bilirubin [Mass/Vol] 0.2 mg/dL Normal 0.2-1.0 [facility] Comment on above: Performed By: #### C MP #### [facility] [address] [place] [address] Dr. Jeffrey Thomas Calcium [Mass/Vol] 8.2 mg/dL Critically low 8.5-10.1 [facility] Comment on above: Performed By: #### C MP #### [facility] [address] [place] [address] Dr. Jeffrey Thomas Chloride [Moles/Vol] 114 mmol/L Critically high 98-107 [facility] Comment on above: Performed By: #### C MP #### [facility] [address] [address] [address] Jeffrey Thomas CO2 [Moles/Vol] 23.1 mmol/L Normal 21.0-32.0 [facility] Comment on above: Performed By: #### C MP #### [facility] [address] [address] [address] Jeffrey Thomas Creatinine [Mass/Vol] 0.95 mg/dL Normal 0.55-1.02 [facility] Comment on above: Performed By: #### C MP #### [facility] [address] [address] [address] Jeffrey Thomas EGFR-AF GIBRALTARIAN >60 Normal >=60 [facility] Comment on above: Performed By: #### C MP #### [facility] [address] [address] [address] Jeffrey Thomas EGFR-NON AF GIBRALTARIAN 59 mL/min/1.73m2 Critically low >=60 [facility] Comment on above: Performed By: #### C MP #### [facility] [address] [address] [address] Jeffrey Thomas Globulin (S) [Mass/Vol] 2.6 g/dL Normal [facility] Comment on above: Performed By: #### C MP #### [facility] [address] [address] [address] Jeffrey Thomas Glucose [Mass/Vol] 87 mg/dL Normal 74-106 [facility] Comment on above: Performed By: #### C MP #### [facility] [address] [address] [address] Jeffrey Thomas Potassium [Moles/Vol] 4.3 mmol/L Normal 3.5-5.1 [facility] Comment on above: Performed By: #### C MP #### [facility] [address] [address] [address] Jeffrey Thomas Protein [Mass/Vol] 5.2 g/dL Critically low 6.4-8.2 Th [facility] Comment on above: Performed By: #### C MP #### [facility] [address] [place] [address] Dr. Jeffrey Thomas Sodium [Moles/Vol] 144 mmol/L Normal 136-145 [facility] Comment on above: Performed By: #### C MP #### [facility] [address] [place] [address] Dr. Jeffrey Thomas Urea nitrogen [Mass/Vol] 10.0 mg/dL Normal 7.0-18.0 [facility] Comment on above: Performed By: #### C MP #### [facility] [address] [place] [address] Dr. Jeffrey Thomas Urea nitrogen/Creatinine [Mass ratio] 10.5 mg/mg Normal [facility] Comment on above: Performed By: #### C MP #### [facility] [address] [place] [address] Dr. Jeffrey Thomas CBC AUTO DIFFon 08-28-2022 BASO # 0.1 103/ul Normal 0.0-0.1 [facility] Comment on above: Performed By: #### T 4LC #### [facility] [address] [place] [address] Dr. Jeffrey Thomas Basophils/100 WBC (Bld) 1.2 % Normal 0.2-2.0 [facility] Comment on above: Performed By: #### T 4LC #### [facility] [address] [place] [address] Dr. Jeffrey Thomas EO # 0.3 103/ul Normal 0.0-0.7 [facility] Comment on above: Performed By: #### T 4LC #### [facility] [address] [place] [address] Dr. Jeffrey Thomas Eosinophils/100 WBC (Bld) 4.4 % Normal 0.9-7.0 [facility] Comment on above: Performed By: #### T 4LC #### [facility] [address] [place] [address] Dr. Jeffrey Thomas Erythrocyte distribution width (RBC) [Ratio] 14.8 % Normal 11.0-15.0 [facility] Comment on above: Performed By: #### T 4LC #### [facility] [address] [place] [address] Dr. Jeffrey Thomas Hematocrit (Bld) [Volume fraction] 33.5 % Critically low 36.0-48.0 [facility] Comment on above: Performed By: #### T 4LC #### [facility] [address] [place] [address] Dr. Jeffrey Thomas Hemoglobin (Bld) [Mass/Vol] 10.1 g/dL Critically low 12.0-16.0 [facility] Comment on above: Performed By: #### T 4LC #### [facility] [address] [place] [address] Dr. Jeffrey Thomas IG # 0.01 10e3/ul Normal 0.00-0.03 [facility] Comment on above: Performed By: #### T 4LC #### [facility] [address] [place] [address] Dr. Jeffrey Thomas IG % 0.2 % Normal 0.0-0.5 [facility] Comment on above: Performed By: #### T 4LC #### [facility] [address] [place] [address] Dr. Jeffrey Thomas LYMPH # 2.1 103/ul Normal 1.2-3.8 [facility] Comment on above: Performed By: #### T 4LC #### [facility] [address] [place] [address] Dr. Jeffrey Thomas Lymphocytes/100 WBC (Bld) 35.1 % Normal 20.5-60.0 [facility] Comment on above: Performed By: #### T 4LC #### [facility] [address] [place] [address] Dr. Jeffrey Thomas MANUAL DIFF REQ NO Normal [facility] Comment on above: Performed By: #### T 4LC #### [facility] [address] [place] [address] Dr. Jeffrey Thomas MCH (RBC) [Entitic mass] 29.6 pg Normal 26.7-34.0 [facility] Comment on above: Performed By: #### T 4LC #### [facility] [address] [place] [address] Dr. Jeffrey Thomas MCHC (RBC) [Mass/Vol] 30.1 g/dL Normal 29.9-35.2 [facility] Comment on above: Performed By: #### T 4LC #### [facility] [address] [place] [address] Dr. Jeffrey Thomas MCV (RBC) [Entitic vol] 98.2 fL Normal 81.0-99.0 [facility] Comment on above: Performed By: #### T 4LC #### [facility] [address] [place] [address] Dr. Jeffrey Thomas MONO # 0.5 103/ul Normal 0.3-0.8 [facility] Comment on above: Performed By: #### T 4LC #### [facility] [address] [place] [address] Dr. Jeffrey Thomas Monocytes/100 WBC (Bld) 7.7 % Normal 1.7-12.0 [facility] Comment on above: Performed By: #### T 4LC #### [facility] [address] [place] [address] Dr. Jeffrey Thomas NEUT # 3.1 103/ul Normal 1.4-6.5 [facility] Comment on above: Performed By: #### T 4LC #### [facility] [address] [place] [address] Dr. Jeffrey Thomas Neutrophils/100 WBC (Bld) 51.4 % Normal 43.0-75.0 [facility] Comment on above: Performed By: #### T 4LC #### [facility] [address] [place] [address] Dr. Jeffrey Thomas Platelet mean volume (Bld) [Entitic vol] 12.1 fL Normal 9.5-13.5 [facility] Comment on above: Performed By: #### T 4LC #### [facility] [address] [place] [address] Dr. Jeffrey Thomas PLT 180 103/ul Normal 150-450 [facility] Comment on above: Performed By: #### T 4LC #### [facility] [address] [place] [address] Dr. Jeffrey Thomas RBC 3.41 106/ul Critically low 4.20-5.40 [facility] Comment on above: Performed By: #### T 4LC #### [facility] [address] [place] [address] Dr. Jeffrey Thomas WBC 6.0 103/ul Normal 4.0-11.0 [facility] Comment on above: Performed By: #### T 4LC #### [facility] [address] [place] [address] Dr. Jeffrey Thomas PROF 14(COMP METB)on 023 Albumin [Mass/Vol] 2.8 g/dL Critically low 3.4-5.0 [facility] Comment on above: Performed By: #### C MP #### [facility] [address] [place] [address] Dr. Jeffrey Thomas Albumin/Globulin [Mass ratio] 1.1 {ratio} Normal [facility] Comment on above: Performed By: #### C MP #### [facility] [address] [place] [address] Dr. Jeffrey Thomas ALP [Catalytic activity/Vol] 96 U/L Normal 46-116 [facility] Comment on above: Performed By: #### C MP #### [facility] [address] [place] [address] Dr. Jeffrey Thomas ALT [Catalytic activity/Vol] 72 U/L Critically high 14-59 [facility] Comment on above: Performed By: #### C MP #### [facility] [address] [place] [address] Dr. Jeffrey Thomas Anion gap [Moles/Vol] 12.8 mmol/L Normal [facility] Comment on above: Performed By: #### C MP #### [facility] [address] [place] [address] Dr. Jeffrey Thomas AST [Catalytic activity/Vol] 39 U/L Critically high 15-37 [facility] Comment on above: Performed By: #### C MP #### [facility] [address] [place] [address] Dr. Jeffrey Thomas Bilirubin [Mass/Vol] 0.2 mg/dL Normal 0.2-1.0 [facility] Comment on above: Performed By: #### C MP #### [facility] [address] [address] [address] Jeffrey Thomas Calcium [Mass/Vol] 7.8 mg/dL Critically low 8.5-10.1 [facility] Comment on above: Performed By: #### C MP #### [facility] [address] [address] [address] Jeffrey Thomas Chloride [Moles/Vol] 115 mmol/L Critically high 98-107 [facility] Comment on above: Performed By: #### C MP #### [facility] [address] [place] [address] Dr. Jeffrey Thomas CO2 [Moles/Vol] 20.4 mmol/L Critically low 21.0-32.0 [facility] Comment on above: Performed By: #### C MP #### [facility] [address] [place] [address] Dr. Jeffrey Thomas Creatinine [Mass/Vol] 0.98 mg/dL Normal 0.55-1.02 [facility] Comment on above: Performed By: #### C MP #### [facility] [address] [place] [address] Dr. Jeffrey Thomas EGFR-AF GIBRALTARIAN >60 Normal >=60 [facility] Comment on above: Performed By: #### C MP #### [facility] [address] [place] [address] Dr. Jeffrey Thomas EGFR-NON AF GIBRALTARIAN 57 mL/min/1.73m2 Critically low >=60 [facility] Comment on above: Performed By: #### C MP #### [facility] [address] [place] [address] Dr. Jeffrey Thomas Globulin (S) [Mass/Vol] 2.6 g/dL Normal [facility] Comment on above: Performed By: #### C MP #### [facility] [address] [place] [address] Dr. Jeffrey Thomas Glucose [Mass/Vol] 80 mg/dL Normal 74-106 [facility] Comment on above: Performed By: #### C MP #### [facility] [address] [place] [address] Dr. Jeffrey Thomas Potassium [Moles/Vol] 4.2 mmol/L Normal 3.5-5.1 [facility] Comment on above: Performed By: #### C MP #### [facility] [address] [place] [address] Dr. Jeffrey Thomas Protein [Mass/Vol] 5.4 g/dL Critically low 6.4-8.2 Th [facility] Comment on above: Performed By: #### C MP #### [facility] [address] [place] [address] Dr. Jeffrey Thomas Sodium [Moles/Vol] 144 mmol/L Normal 136-145 [facility] Comment on above: Performed By: #### C MP #### [facility] [address] [place] [address] Dr. Jeffrey Thomas Urea nitrogen [Mass/Vol] 10.0 mg/dL Normal 7.0-18.0 [facility] Comment on above: Performed By: #### C MP #### [facility] [address] [place] [address] Dr. Jeffrey Thomas Urea nitrogen/Creatinine [Mass ratio] 10.2 mg/mg Normal [facility] Comment on above: Performed By: #### C MP #### [facility] [address] [place] [address] Dr. Jeffrey Thomas CBC AUTO DIFFon 08-27-2022 BASO # 0.1 103/ul Normal 0.0-0.1 [facility] Comment on above: Performed By: #### C MP #### [facility] [address] [place] [address] Dr. Jeffrey Thomas Basophils/100 WBC (Bld) 1.2 % Normal 0.2-2.0 [facility] Comment on above: Performed By: #### C MP #### [facility] [address] [place] [address] Dr. Jeffrey Thomas EO # 0.2 103/ul Normal 0.0-0.7 [facility] Comment on above: Performed By: #### C MP #### [facility] [address] [place] [address] Dr. Jeffrey Thomas Eosinophils/100 WBC (Bld) 4.0 % Normal 0.9-7.0 [facility] Comment on above: Performed By: #### C MP #### [facility] [address] [place] [address] Dr. Jeffrey Thomas Erythrocyte distribution width (RBC) [Ratio] 14.6 % Normal 11.0-15.0 [facility] Comment on above: Performed By: #### C MP #### [facility] [address] [place] [address] Dr. Jeffrey Thomas Hematocrit (Bld) [Volume fraction] 35.8 % Critically low 36.0-48.0 [facility] Comment on above: Performed By: #### C MP #### [facility] [address] [place] [address] Dr. Jeffrey Thomas Hemoglobin (Bld) [Mass/Vol] 11.4 g/dL Critically low 12.0-16.0 [facility] Comment on above: Performed By: #### C MP #### [facility] [address] [place] [address] Dr. Jeffrey Thomas IG # 0.01 10e3/ul Normal 0.00-0.03 [facility] Comment on above: Performed By: #### C MP #### [facility] [address] [place] [address] Dr. Jeffrey Thomas IG % 0.2 % Normal 0.0-0.5 [facility] Comment on above: Performed By: #### C MP #### [facility] [address] [place] [address] Dr. Jeffrey Thomas LYMPH # 2.0 103/ul Normal 1.2-3.8 [facility] Comment on above: Performed By: #### C MP #### [facility] [address] [place] [address] Dr. Jeffrey Thomas Lymphocytes/100 WBC (Bld) 35.4 % Normal 20.5-60.0 [facility] Comment on above: Performed By: #### C MP #### [facility] [address] [place] [address] Dr. Jeffrey Thomas MANUAL DIFF REQ NO Normal [facility] Comment on above: Performed By: #### C MP #### [facility] [address] [place] [address] Dr. Jeffrey Thomas MCH (RBC) [Entitic mass] 29.9 pg Normal 26.7-34.0 [facility] Comment on above: Performed By: #### C MP #### [facility] [address] [place] [address] Dr. Jeffrey Thomas MCHC (RBC) [Mass/Vol] 31.8 g/dL Normal 29.9-35.2 [facility] Comment on above: Performed By: #### C MP #### [facility] [address] [place] [address] Dr. Jeffrey Thomas MCV (RBC) [Entitic vol] 94.0 fL Normal 81.0-99.0 [facility] Comment on above: Performed By: #### C MP #### [facility] [address] [place] [address] Dr. Jeffrye Thomas MONO # 0.5 103/ul Normal 0.3-0.8 [facility] Comment on above: Performed By: #### C MP #### [facility] [address] [place] [address] Dr. Jeffrey Thomas Monocytes/100 WBC (Bld) 9.2 % Normal 1.7-12.0 [facility] Comment on above: Performed By: #### C MP #### [facility] [address] [place] [address] Dr. Jeffrey Thomas NEUT # 2.8 103/ul Normal 1.4-6.5 [facility] Comment on above: Performed By: #### C MP #### [facility] [address] [place] [address] Dr. Jeffrey Thomas Neutrophils/100 WBC (Bld) 50.0 % Normal 43.0-75.0 [facility] Comment on above: Performed By: #### C MP #### [facility] [address] [address] [address] Jeffrey Thomas Platelet mean volume (Bld) [Entitic vol] 12.0 fL Normal 9.5-13.5 [facility] Comment on above: Performed By: #### C MP #### [facility] [address] [address] [address] Jeffrey Thomas PLT 199 103/ul Normal 150-450 [facility] Comment on above: Performed By: #### C MP #### [facility] [address] [address] [address] Jeffrey Thomas RBC 3.81 106/ul Critically low 4.20-5.40 [facility] Comment on above: Performed By: #### C MP #### [facility] [address] [address] [address] Jeffrey Thomas WBC 5.7 103/ul Normal 4.0-11.0 [facility] Comment on above: Performed By: #### C MP #### [facility] [address] [address] [address] Jeffrey Thomas LACTATE/LACTIC ACIDon 2022 Lactate [Moles/Vol] 0.6 mmol/L Normal 0.4-2.0 [facility] Comment on above: Performed By: #### C MP #### [facility] [address] [address] [address] Jeffrey Thomas Lactate [Moles/Vol] 2.8 mmol/L Critically high 0.4-2.0 [facility] Comment on above: Performed By: #### T 4LC #### [facility] [address] [address] [address] Jeffrey Thomas PROF 14(COMP METB)on 023 Albumin [Mass/Vol] 2.8 g/dL Critically low 3.4-5.0 [facility] Comment on above: Performed By: #### C MP #### [facility] [address] [place] [address] Dr. Jeffrey Thomas Albumin/Globulin [Mass ratio] 0.9 {ratio} Normal [facility] Comment on above: Performed By: #### C MP #### [facility] [address] [address] [address] Jeffrey Thomas ALP [Catalytic activity/Vol] 100 U/L Normal 46-116 [facility] Comment on above: Performed By: #### C MP #### [facility] [address] [address] [address] Jeffrey Thomas ALT [Catalytic activity/Vol] 102 U/L Critically high 14-59 [facility] Comment on above: Performed By: #### C MP #### [facility] [address] [address] [address] Jeffrey Thomas Anion gap [Moles/Vol] 17.0 mmol/L Normal [facility] Comment on above: Performed By: #### C MP #### [facility] [address] [place] [address] Dr. Jeffrey Thomas AST [Catalytic activity/Vol] 62 U/L Critically high 15-37 [facility] Comment on above: Performed By: #### C MP #### [facility] [address] [address] [address] Jeffrey Thomas Bilirubin [Mass/Vol] 0.3 mg/dL Normal 0.2-1.0 [facility] Comment on above: Performed By: #### C MP #### [facility] [address] [place] [address] Dr. Jeffrey Thomas Calcium [Mass/Vol] 8.1 mg/dL Critically low 8.5-10.1 [facility] Comment on above: Performed By: #### C MP #### [facility] [address] [address] [address] Jeffrey Thomas Chloride [Moles/Vol] 110 mmol/L Critically high 98-107 [facility] Comment on above: Performed By: #### C MP #### [facility] [address] [place] [address] Dr. Jeffrey Thomas CO2 [Moles/Vol] 18.6 mmol/L Critically low 21.0-32.0 [facility] Comment on above: Performed By: #### C MP #### [facility] [address] [address] [address] Jeffrey Thomas Creatinine [Mass/Vol] 1.43 mg/dL Critically high 0.55-1.02 [facility] Comment on above: Performed By: #### C MP #### [facility] [address] [address] [address] Jeffrey Thomas EGFR-AF GIBRALTARIAN 45 mL/min/1.73m2 Critically low >=60 [facility] Comment on above: Performed By: #### C MP #### [facility] [address] [address] [address] Jeffrey Thomas EGFR-NON AF GIBRALTARIAN 37 mL/min/1.73m2 Critically low >=60 [facility] Comment on above: Performed By: #### C MP #### [facility] [address] [address] [address] Jeffrey Thomas Globulin (S) [Mass/Vol] 3.0 g/dL Normal [facility] Comment on above: Performed By: #### C MP #### [facility] [address] [address] [address] Jeffrey Thomas Glucose [Mass/Vol] 141 mg/dL Critically high 74-106 [facility] Comment on above: Performed By: #### C MP #### [facility] [address] [address] [address] Jeffrey Thomas Potassium [Moles/Vol] 3.6 mmol/L Normal 3.5-5.1 [facility] Comment on above: Performed By: #### C MP #### [facility] [address] [address] [address] Jeffrey Thomas Protein [Mass/Vol] 5.8 g/dL Critically low 6.4-8.2 Th [facility] Comment on above: Performed By: #### C MP #### [facility] [address] [address] [address] Jeffrey Thomas Sodium [Moles/Vol] 142 mmol/L Normal 136-145 [facility] Comment on above: Performed By: #### C MP #### [facility] [address] [address] [address] Jeffrey Thomas Urea nitrogen [Mass/Vol] 22.0 mg/dL Critically high 7.0-18.0 [facility] Comment on above: Performed By: #### C MP #### [facility] [address] [address] [address] Jeffrey Thomas Urea nitrogen/Creatinine [Mass ratio] 15.4 mg/mg Normal [facility] Comment on above: Performed By: #### C MP #### [facility] [address] [address] [address] Jeffrey Thomas AMYLASEon 08-26-2022 Amylase [Catalytic activity/Vol] 40 U/L Normal 25-115 [facility] Comment on above: Performed By: #### C MP #### [facility] [address] [place] [address] Dr. Jeffrey Thomas CARDIAC CHONG ADMITon 023 CK [Catalytic activity/Vol] 39 U/L Normal 26-192 [facility] Comment on above: Performed By: #### C BLAKE AGUILERADM #### [facility] [address] [place] [address] Dr. Jeffrey Thomas CK.MB [Mass/Vol] 1.47 ng/mL Normal <=3.60 [facility] Comment on above: Performed By: #### C ALE, CMADM #### [facility] [address] [place] [address] Dr. Jeffrey Thomas HSTROP 7.0 pg/mL Normal 4.0-51.3 [facility] Comment on above: Result Comment: CUT- OFF POINTS HAVE BEEN ESTABLISHED BASED ON THE FOURTH UNIVERSAL DEFINITIONS OF MYOCARDIAL INFARCTION. THE UPPER REFERENCE LIMIT (URL) OF TROPONIN, DEFINED THE 99TH PERCENTILE OF cTnI DISTRIBUTION IN A REFERENCE POPULATION, HAS BEEN CONFIRMED THE DECISION THRESHOLD FOR MO DIAGNOSIS. Performed By: #### C ALE, CMADM #### [facility] [address] [address] [address] Jeffrey Thomas SHONNA 107 ng/mL Critically high 9-82 [facility] Comment on above: Performed By: #### C MP, CMADM #### [facility] [address] [address] [address] Jeffrey Thomas CBC AUTO DIFFon 08-26-2022 BASO # 0.1 103/ul Normal 0.0-0.1 [facility] Comment on above: Performed By: #### C MP #### [facility] [address] [address] [address] Jeffrey Thomas Basophils/100 WBC (Bld) 0.9 % Normal 0.2-2.0 [facility] Comment on above: Performed By: #### C MP #### [facility] [address] [address] [address] Jeffrey Thomas EO # 0.1 103/ul Normal 0.0-0.7 [facility] Comment on above: Performed By: #### C MP #### [facility] [address] [address] [address] Jeffrey Thomas Eosinophils/100 WBC (Bld) 0.9 % Normal 0.9-7.0 [facility] Comment on above: Performed By: #### C MP #### [facility] [address] [place] [address] Dr. Jeffrey Thomas Erythrocyte distribution width (RBC) [Ratio] 14.1 % Normal 11.0-15.0 [facility] Comment on above: Performed By: #### C MP #### [facility] [address] [place] [address] Dr. Jeffrey Thomas Hematocrit (Bld) [Volume fraction] 48.3 % Critically high 36.0-48.0 [facility] Comment on above: Performed By: #### C MP #### [facility] [address] [place] [address] Dr. Jeffrey Thomas Hemoglobin (Bld) [Mass/Vol] 15.4 g/dL Normal 12.0-16.0 [facility] Comment on above: Performed By: #### C MP #### [facility] [address] [place] [address] Dr. Jeffrey Thomas IG # 0.04 10e3/ul Critically high 0.00-0.03 [facility] Comment on above: Performed By: #### C MP #### [facility] [address] [place] [address] Dr. Jeffrey Thomas IG % 0.3 % Normal 0.0-0.5 [facility] Comment on above: Performed By: #### C MP #### [facility] [address] [place] [address] Dr. Jeffrey Thomas LYMPH # 1.2 103/ul Normal 1.2-3.8 [facility] Comment on above: Performed By: #### C MP #### [facility] [address] [place] [address] Dr. Jeffrey Thomas Lymphocytes/100 WBC (Bld) 10.0 % Critically low 20.5-60.0 [facility] Comment on above: Performed By: #### C MP #### [facility] [address] [place] [address] Dr. Jeffrey Thomas MANUAL DIFF REQ NO Normal [facility] Comment on above: Performed By: #### C MP #### [facility] [address] [place] [address] Dr. Jeffrey Thomas MCH (RBC) [Entitic mass] 29.7 pg Normal 26.7-34.0 [facility] Comment on above: Performed By: #### C MP #### [facility] [address] [place] [address] Dr. Jeffrey Thomas MCHC (RBC) [Mass/Vol] 31.9 g/dL Normal 29.9-35.2 [facility] Comment on above: Performed By: #### C MP #### [facility] [address] [place] [address] Dr. Jeffrey Thomas MCV (RBC) [Entitic vol] 93.1 fL Normal 81.0-99.0 [facility] Comment on above: Performed By: #### C MP #### [facility] [address] [place] [address] Dr. Jeffrey Thomas MONO # 0.5 103/ul Normal 0.3-0.8 [facility] Comment on above: Performed By: #### C MP #### [facility] [address] [address] [address] Jeffrey Thomas Monocytes/100 WBC (Bld) 4.1 % Normal 1.7-12.0 [facility] Comment on above: Performed By: #### C MP #### [facility] [address] [address] [address] Jeffrey Thomas NEUT # 10.2 103/ul Critically high 1.4-6.5 [facility] Comment on above: Performed By: #### C MP #### [facility] [address] [address] [address] Jeffrey Thomas Neutrophils/100 WBC (Bld) 83.8 % Critically high 43.0-75.0 [facility] Comment on above: Performed By: #### C MP #### [facility] [address] [place] [address] Dr. Jeffrey Thomas Platelet mean volume (Bld) [Entitic vol] 12.2 fL Normal 9.5-13.5 [facility] Comment on above: Performed By: #### C MP #### [facility] [address] [address] [address] Jeffrey Thomas PLT 303 103/ul Normal 150-450 [facility] Comment on above: Performed By: #### C MP #### [facility] [address] [place] [address] Dr. Jeffrey Thomas RBC 5.19 106/ul Normal 4.20-5.40 [facility] Comment on above: Performed By: #### C MP #### [facility] [address] [address] [address] Jeffrey Thomas WBC 12.2 103/ul Critically high 4.0-11.0 [facility] Comment on above: Performed By: #### C MP #### [facility] [address] [place] [address] ABD/PELVIS WO CONon [...] by: SALVADOR POTTS Date: 2022-08-26 15:43 Normal [facility] LIPASEon 08-26-2022 Lipase [Catalytic activity/Vol] 27.0 U/L Critically low 73.0-393.0 [facility] Comment on above: Performed By: #### Stef ACT #### [facility] [address] [place] [address] Dr. Jeffrey Thomas PROF 14(COMP METB)on 023 Albumin [Mass/Vol] 3.7 g/dL Normal 3.4-5.0 [facility] Comment on above: Performed By: #### JUANITO Palumbo MP #### [facility] [address] [place] [address] Dr. Jeffrey Thomas Albumin/Globulin [Mass ratio] 0.9 {ratio} Normal [facility] Comment on above: Performed By: #### C JUANITO AGUILERA #### [facility] [address] [address] [address] Jeffrey Thomas ALP [Catalytic activity/Vol] 138 U/L Critically high 46-116 [facility] Comment on above: Performed By: #### C ALE, CMADM #### [facility] [address] [address] [address] Jeffrey Thomas ALT [Catalytic activity/Vol] 174 U/L Critically high 14-59 [facility] Comment on above: Performed By: #### C ALE, CMADM #### [facility] [address] [address] [address] Jeffrey Thomas Anion gap [Moles/Vol] 20.4 mmol/L Normal [facility] Comment on above: Performed By: #### C ALE, CMADM #### [facility] [address] [address] [address] Jeffrey Thomas AST [Catalytic activity/Vol] 135 U/L Critically high 15-37 [facility] Comment on above: Performed By: #### C ALE, CMADM #### [facility] [address] [address] [address] Jeffrey Thomas Bilirubin [Mass/Vol] 0.4 mg/dL Normal 0.2-1.0 [facility] Comment on above: Performed By: #### C ALE, CMADM #### [facility] [address] [address] [address] Jeffrey Thomas Calcium [Mass/Vol] 9.1 mg/dL Normal 8.5-10.1 [facility] Comment on above: Performed By: #### C ALE, CMADM #### [facility] [address] [address] [address] Jeffrey Thomas Chloride [Moles/Vol] 103 mmol/L Normal 98-107 [facility] Comment on above: Performed By: #### C ALE, CMADM #### [facility] [address] [address] [address] Jeffrey Thomas CO2 [Moles/Vol] 18.5 mmol/L Critically low 21.0-32.0 [facility] Comment on above: Performed By: #### C ALE, CMADM #### [facility] [address] [address] [address] Jeffrey Thomas Creatinine [Mass/Vol] 1.85 mg/dL Critically high 0.55-1.02 [facility] Comment on above: Performed By: #### C MP, CMADM #### [facility] [address] [address] [address] Jeffrey Thomas EGFR-AF GIBRALTARIAN 33 mL/min/1.73m2 Critically low >=60 [facility] Comment on above: Performed By: #### C MP, CMADM #### [facility] [address] [address] [address] Jeffrey Thomas EGFR-NON AF GIBRALTARIAN 27 mL/min/1.73m2 Critically low >=60 [facility] Comment on above: Performed By: #### C MP, CMADM #### [facility] [address] [address] [address] Jeffrey Thomas Globulin (S) [Mass/Vol] 4.0 g/dL Normal [facility] Comment on above: Performed By: #### C MP, CMADM #### [facility] [address] [address] [address] Jeffrey Thomas Glucose [Mass/Vol] 110 mg/dL Critically high 74-106 [facility] Comment on above: Performed By: #### C MP, CMADM #### [facility] [address] [address] [address] Jeffrey Thomas Potassium [Moles/Vol] 3.9 mmol/L Normal 3.5-5.1 [facility] Comment on above: Performed By: #### C MP, CMADM #### [facility] [address] [address] [address] Jeffrey Thomas Protein [Mass/Vol] 7.7 g/dL Normal 6.4-8.2 [facility] Comment on above: Performed By: #### C MP, CMADM #### [facility] [address] [address] [address] Jeffrey Thomas Sodium [Moles/Vol] 138 mmol/L Normal 136-145 [facility] Comment on above: Performed By: #### C MP, CMADM #### [facility] [address] [place], [place] [address] Dr. Jeffrey Thomas Urea nitrogen [Mass/Vol] 32.0 mg/dL Critically high 7.0-18.0 [facility] Comment on above: Performed By: #### C MP, CMADM #### [facility] [address] [place], [place] [address] Dr. Jeffrey Thomas Urea nitrogen/Creatinine [Mass ratio] 17.3 mg/mg Normal [facility] Comment on above: Performed By: #### C MP, CMADM #### [facility] [address] [place], [place] [address] Dr. Jeffrey Thomas US SINGLE QUAD RT [...] LIDIA COLÓN Date: 2022-08-26 20:40 Normal [facility] CBC AUTO DIFFon 08-01-2022 BASO # 0.1 103/ul Normal 0.0-0.1 [facility] Comment on above: Performed By: #### T 4LC #### [facility] [address] [address] [address] Jeffrey Thomas Basophils/100 WBC (Bld) 1.3 % Normal 0.2-2.0 [facility] Comment on above: Performed By: #### T 4LC #### [facility] [address] [place] [address] Dr. Jeffrey Thomas EO # 0.2 103/ul Normal 0.0-0.7 [facility] Comment on above: Performed By: #### T 4LC #### [facility] [address] [place] [address] Dr. Jeffrey Thomas Eosinophils/100 WBC (Bld) 2.8 % Normal 0.9-7.0 [facility] Comment on above: Performed By: #### T 4LC #### [facility] [address] [place] [address] Dr. Jeffrey Thomas Erythrocyte distribution width (RBC) [Ratio] 15.9 % Critically high 11.0-15.0 [facility] Comment on above: Performed By: #### T 4LC #### [facility] [address] [place] [address] Dr. Jeffrey Thomas Hematocrit (Bld) [Volume fraction] 37.7 % Normal 36.0-48.0 [facility] Comment on above: Performed By: #### T 4LC #### [facility] [address] [place] [address] Dr. Jeffrey Thomas Hemoglobin (Bld) [Mass/Vol] 11.5 g/dL Critically low 12.0-16.0 [facility] Comment on above: Performed By: #### T 4LC #### [facility] [address] [place] [address] Dr. Jeffrey Thomas IG # 0.03 10e3/ul Normal 0.00-0.03 [facility] Comment on above: Performed By: #### T 4LC #### [facility] [address] [place] [address] Dr. Jeffrey Thomas IG % 0.4 % Normal 0.0-0.5 [facility] Comment on above: Performed By: #### T 4LC #### [facility] [address] [place] [address] Dr. Jeffrey Thomas LYMPH # 1.6 103/ul Normal 1.2-3.8 [facility] Comment on above: Performed By: #### 4LC #### [facility] [address] [place] [address] Dr. Jeffrey Thomas Lymphocytes/100 WBC (Bld) 20.9 % Normal 20.5-60.0 [facility] Comment on above: Performed By: #### 4LC #### [facility] [address] [place] [address] Dr. Jeffrey Thomas MANUAL DIFF REQ NO Normal [facility] Comment on above: Performed By: #### 4LC #### [facility] [address] [place] [address] Dr. Jeffrey Thomas MCH (RBC) [Entitic mass] 30.0 pg Normal 26.7-34.0 [facility] Comment on above: Performed By: #### 4LC #### [facility] [address] [place] [address] Dr. Jeffrey Thomas MCHC (RBC) [Mass/Vol] 30.5 g/dL Normal 29.9-35.2 [facility] Comment on above: Performed By: #### T 4LC #### [facility] [address] [place] [address] Dr. Jeffrey Thomas MCV (RBC) [Entitic vol] 98.4 fL Normal 81.0-99.0 [facility] Comment on above: Performed By: #### T 4LC #### [facility] [address] [place] [address] Dr. Jeffrey Thomas MONO # 0.7 103/ul Normal 0.3-0.8 [facility] Comment on above: Performed By: #### 4LC #### [facility] [address] [place] [address] Dr. Jeffrey Thomas Monocytes/100 WBC (Bld) 8.7 % Normal 1.7-12.0 [facility] Comment on above: Performed By: #### T 4LC #### [facility] [address] [place] [address] Dr. Jeffrey Thomas NEUT # 5.2 103/ul Normal 1.4-6.5 [facility] Comment on above: Performed By: #### T 4LC #### [facility] [address] [place] [address] Dr. Jeffrey Thomas Neutrophils/100 WBC (Bld) 65.9 % Normal 43.0-75.0 [facility] Comment on above: Performed By: #### T 4LC #### [facility] [address] [place] [address] Dr. Jeffrey Thomas Platelet mean volume (Bld) [Entitic vol] 11.8 fL Normal 9.5-13.5 [facility] Comment on above: Performed By: #### T 4LC #### [facility] [address] [place] [address] Dr. Jeffrey Thomas PLT 265 103/ul Normal 150-450 [facility] Comment on above: Performed By: #### T 4LC #### [facility] [address] [place] [address] Dr. Jeffrey Thomas RBC 3.83 106/ul Critically low 4.20-5.40 [facility] Comment on above: Performed By: #### T 4LC #### [facility] [address] [place] [address] Dr. Jeffrey Thomas WBC 7.8 103/ul Normal 4.0-11.0 [facility] Comment on above: Performed By: #### T 4LC #### [facility] [address] [place] [address] Dr. Jeffrey Thomas CULTURE BLOODon 08-01-2022 Microscopic examination of blood, culture Culture Observations: NO GROWTH AT 5 DAYS. Normal [facility] Comment on above: Performed By: #### A MM #### [facility] [address] [place] [address] Dr. Jeffrey Thomas PROF 14(COMP METB)on 023 Albumin [Mass/Vol] 3.4 g/dL Normal 3.4-5.0 [facility] Comment on above: Performed By: #### C MP #### [facility] [address] [place] [address] Dr. Jeffrey Thomas Albumin/Globulin [Mass ratio] 0.8 {ratio} Normal [facility] Comment on above: Performed By: #### C MP #### [facility] [address] [place] [address] Dr. Jeffrey Thomas ALP [Catalytic activity/Vol] 98 U/L Normal 46-116 [facility] Comment on above: Performed By: #### C MP #### [facility] [address] [place] [address] Dr. Jeffrey Thomas ALT [Catalytic activity/Vol] 18 U/L Normal 14-59 [facility] Comment on above: Performed By: #### C MP #### [facility] [address] [place] [address] Dr. Jeffrey Thomas Anion gap [Moles/Vol] 13.3 mmol/L Normal [facility] Comment on above: Performed By: #### C MP #### [facility] [address] [place] [address] Dr. Jeffrey Thomas AST [Catalytic activity/Vol] 21 U/L Normal 15-37 [facility] Comment on above: Performed By: #### C MP #### [facility] [address] [place] [address] Dr. Jeffrey Thomas Bilirubin [Mass/Vol] 0.2 mg/dL Normal 0.2-1.0 [facility] Comment on above: Performed By: #### C MP #### [facility] [address] [place] [address] Dr. Jeffrey Thomas Calcium [Mass/Vol] 9.2 mg/dL Normal 8.5-10.1 [facility] Comment on above: Performed By: #### C MP #### [facility] [address] [address] [address] Jeffrey Thomas Chloride [Moles/Vol] 106 mmol/L Normal 98-107 [facility] Comment on above: Performed By: #### C MP #### [facility] [address] [address] [address] Jeffrey Thomas CO2 [Moles/Vol] 23.8 mmol/L Normal 21.0-32.0 [facility] Comment on above: Performed By: #### C MP #### [facility] [address] [place] [address] Dr. Jeffrey Thomas Creatinine [Mass/Vol] 1.07 mg/dL Critically high 0.55-1.02 [facility] Comment on above: Performed By: #### C MP #### [facility] [address] [place] [address] Dr. Jeffrey Thomas EGFR-AF GIBRALTARIAN >60 Normal >=60 [facility] Comment on above: Performed By: #### C MP #### [facility] [address] [place] [address] Dr. Jeffrey Thomas EGFR-NON AF GIBRALTARIAN 51 mL/min/1.73m2 Critically low >=60 [facility] Comment on above: Performed By: #### C MP #### [facility] [address] [place] [address] Dr. Jeffrey Thomas Globulin (S) [Mass/Vol] 4.1 g/dL Normal [facility] Comment on above: Performed By: #### C MP #### [facility] [address] [address] [address] Jeffrey Thomas Glucose [Mass/Vol] 77 mg/dL Normal 74-106 [facility] Comment on above: Performed By: #### C MP #### [facility] [address] [place] [address] Dr. Jeffrey Thomas Potassium [Moles/Vol] 5.1 mmol/L Normal 3.5-5.1 [facility] Comment on above: Performed By: #### C MP #### [facility] [address] [place] [address] Dr. Jeffrey Thomas Protein [Mass/Vol] 7.5 g/dL Normal 6.4-8.2 [facility] Comment on above: Performed By: #### C MP #### [facility] [address] [place] [address] Dr. Jeffrey Thomas Sodium [Moles/Vol] 138 mmol/L Normal 136-145 [facility] Comment on above: Performed By: #### C MP #### [facility] [address] [place] [address] Dr. Jeffrey Thomas Urea nitrogen [Mass/Vol] 36.0 mg/dL Critically high 7.0-18.0 [facility] Comment on above: Performed By: #### C MP #### [facility] [address] [place] [address] Dr. Jeffrey Thomas Urea nitrogen/Creatinine [Mass ratio] 33.6 mg/mg Normal [facility] Comment on above: Performed By: #### C MP #### [facility] [address] [place] [address] Dr. Jeffrey Thomas [facility] 42 mm/hr Critically high <=30 [facility] Comment on above: Performed By: #### C MP #### [facility] [address] [place] [address] Dr. Jeffrey Thomas AMMONIAon 05-23-2022 Ammonia (P) [Moles/Vol] 18 umol/L Normal 11-32 [facility] Comment on above: Performed By: #### C MP #### [facility] [address] [place] [address] Dr. Jeffrey Thomas AMYLASEon 05-23-2022 Amylase [Catalytic activity/Vol] 30 U/L Normal 25-115 [facility] Comment on above: Performed By: #### A MM #### [facility] [address] [place] [address] Dr. Jeffrey Thomas BNPon 05-23-2022 Natriuretic peptide B (Bld) [Mass/Vol] 1066.0 pg/mL Critically high <=900.0 [facility] Comment on above: Performed By: #### A MM #### [facility] [address] [address] [address] Jeffrey Thomas CBC AUTO DIFFon 05-23-2022 BASO # 0.1 103/ul Normal 0.0-0.1 [facility] Comment on above: Performed By: #### C MP #### [facility] [address] [address] [address] Jeffrey Thomas Basophils/100 WBC (Bld) 1.1 % Normal 0.2-2.0 [facility] Comment on above: Performed By: #### C MP #### [facility] [address] [place] [address] Dr. Jeffrey Thomas EO # 0.2 103/ul Normal 0.0-0.7 [facility] Comment on above: Performed By: #### C MP #### [facility] [address] [place] [address] Dr. Jeffrey Thomas Eosinophils/100 WBC (Bld) 3.1 % Normal 0.9-7.0 [facility] Comment on above: Performed By: #### C MP #### [facility] [address] [place] [address] Dr. Jeffrey Thomas Erythrocyte distribution width (RBC) [Ratio] 17.2 % Critically high 11.0-15.0 [facility] Comment on above: Performed By: #### C MP #### [facility] [address] [place] [address] Dr. Jeffrey Thomas Hematocrit (Bld) [Volume fraction] 33.0 % Critically low 36.0-48.0 [facility] Comment on above: Performed By: #### C MP #### [facility] [address] [place] [address] Dr. Jeffrey Thomas Hemoglobin (Bld) [Mass/Vol] 10.3 g/dL Critically low 12.0-16.0 [facility] Comment on above: Performed By: #### C MP #### [facility] [address] [place] [address] Dr. Jeffrey Thomas IG # 0.02 10e3/ul Normal 0.00-0.03 [facility] Comment on above: Performed By: #### C MP #### [facility] [address] [place] [address] Dr. Jeffrey Thomas IG % 0.3 % Normal 0.0-0.5 [facility] Comment on above: Performed By: #### C MP #### [facility] [address] [place] [address] Dr. Jeffrey Thomas LYMPH # 1.8 103/ul Normal 1.2-3.8 [facility] Comment on above: Performed By: #### C MP #### [facility] [address] [place] [address] Dr. Jeffrey Thomas Lymphocytes/100 WBC (Bld) 27.8 % Normal 20.5-60.0 [facility] Comment on above: Performed By: #### C MP #### [facility] [address] [place] [address] Dr. Jeffrey Thomas MANUAL DIFF REQ NO Normal [facility] Comment on above: Performed By: #### C MP #### [facility] [address] [place] [address] Dr. Jeffrey Thomas MCH (RBC) [Entitic mass] 28.4 pg Normal 26.7-34.0 [facility] Comment on above: Performed By: #### C MP #### [facility] [address] [place] [address] Dr. Jeffrey Thomas MCHC (RBC) [Mass/Vol] 31.2 g/dL Normal 29.9-35.2 [facility] Comment on above: Performed By: #### C MP #### [facility] [address] [place] [address] Dr. Jeffrey Thomas MCV (RBC) [Entitic vol] 90.9 fL Normal 81.0-99.0 [facility] Comment on above: Performed By: #### C MP #### [facility] [address] [place] [address] Dr. Jeffrey Thomas MONO # 0.4 103/ul Normal 0.3-0.8 [facility] Comment on above: Performed By: #### C MP #### [facility] [address] [place] [address] Dr. Jeffrey Thomas Monocytes/100 WBC (Bld) 6.7 % Normal 1.7-12.0 [facility] Comment on above: Performed By: #### C MP #### [facility] [address] [place] [address] Dr. Jeffrey Thomas NEUT # 4.0 103/ul Normal 1.4-6.5 [facility] Comment on above: Performed By: #### C MP #### [facility] [address] [place] [place] [address] Dr. Jeffrey Thomas Neutrophils/100 WBC (Bld) 61.0 % Normal 43.0-75.0 [facility] Comment on above: Performed By: #### C MP #### [facility] [address] [place] [address] Dr. Jeffrey Thomas Platelet mean volume (Bld) [Entitic vol] 10.4 fL Normal 9.5-13.5 [facility] Comment on above: Performed By: #### C MP #### [facility] [address] [place] [address] Dr. Jeffrey Thomas PLT 218 103/ul Normal 150-450 [facility] Comment on above: Performed By: #### C MP #### [facility] [address] [place] [address] Dr. eJffrey Thomas RBC 3.63 106/ul Critically low 4.20-5.40 [facility] Comment on above: Performed By: #### C MP #### [facility] [address] [place] [address] Dr. Jeffrey Thomas WBC 6.5 103/ul Normal 4.0-11.0 [facility] Comment on above: Performed By: #### C MP #### [facility] [address] [place] [address] Dr. Jeffrey Thomas MAGNESIUMon 05-23-2022 Magnesium [Mass/Vol] 1.4 mg/dL Critically low 1.8-2.4 [facility] Comment on above: Performed By: #### A MM #### [facility] [address] [place], [place] [id number] Dr. Jeffrey Thomas PROF 14(COMP METB)on 023 Albumin [Mass/Vol] 2.8 g/dL Critically low 3.4-5.0 [facility] Comment on above: Performed By: #### A MM #### [facility] [address] [place] [address] Dr. Jeffrey Thomas Albumin/Globulin [Mass ratio] 1.0 {ratio} Normal [facility] Comment on above: Performed By: #### A MM #### [facility] [address] [place] [address] Dr. Jeffrey Thomas ALP [Catalytic activity/Vol] 113 U/L Normal 46-116 [facility] Comment on above: Performed By: #### A MM #### [facility] [address] [place] [address] Dr. Jeffrey Thomas ALT [Catalytic activity/Vol] 14 U/L Normal 14-59 [facility] Comment on above: Performed By: #### A MM #### [facility] [address] [place] [address] Dr. Jeffrey Thomas Anion gap [Moles/Vol] 15.0 mmol/L Normal [facility] Comment on above: Performed By: #### A MM #### [facility] [address] [place] [address] Dr. Jeffrey Thomas AST [Catalytic activity/Vol] 18 U/L Normal 15-37 [facility] Comment on above: Performed By: #### A MM #### [facility] [address] [place] [address] Dr. Jeffrey Thomas Bilirubin [Mass/Vol] 0.5 mg/dL Normal 0.2-1.0 [facility] Comment on above: Performed By: #### A MM #### [facility] [address] [place] [address] Dr. Jeffrey Thomas Calcium [Mass/Vol] 8.3 mg/dL Critically low 8.5-10.1 [facility] Comment on above: Performed By: #### A MM #### [facility] [address] [place] [address] Dr. Jeffrey Thomas Chloride [Moles/Vol] 106 mmol/L Normal 98-107 [facility] Comment on above: Performed By: #### A MM #### [facility] [address] [address] [address] Jeffrey Thomas CO2 [Moles/Vol] 21.2 mmol/L Normal 21.0-32.0 [facility] Comment on above: Performed By: #### A MM #### [facility] [address] [address] [address] Jeffrey Thomas Creatinine [Mass/Vol] 1.02 mg/dL Normal 0.55-1.02 [facility] Comment on above: Performed By: #### A MM #### [facility] [address] [place] [address] Dr. Jeffrey Thomas EGFR-AF GIBRALTARIAN >60 Normal >=60 [facility] Comment on above: Performed By: #### A MM #### [facility] [address] [address] [address] Jeffrey Thomas EGFR-NON AF GIBRALTARIAN 54 mL/min/1.73m2 Critically low >=60 [facility] Comment on above: Performed By: #### A MM #### [facility] [address] [place] [address] Dr. Jeffrey Thomas Globulin (S) [Mass/Vol] 2.8 g/dL Normal [facility] Comment on above: Performed By: #### A MM #### [facility] [address] [place] [address] Dr. Jeffrey Thomas Glucose [Mass/Vol] 85 mg/dL Normal 74-106 [facility] Comment on above: Performed By: #### A MM #### [facility] [address] [address] [address] Jeffrey Thomas Potassium [Moles/Vol] 4.2 mmol/L Normal 3.5-5.1 [facility] Comment on above: Performed By: #### A MM #### [facility] [address] [place] [address] Dr. Jeffrey Thomas Protein [Mass/Vol] 5.6 g/dL Critically low 6.4-8.2 [facility] Comment on above: Performed By: #### A MM #### [facility] [address] [place] [address] Dr. Jfefrey Thomas Sodium [Moles/Vol] 138 mmol/L Normal 136-145 [facility] Comment on above: Performed By: #### A MM #### [facility] [address] [place] [address] Dr. Jeffrey Thomas Urea nitrogen [Mass/Vol] 17.0 mg/dL Normal 7.0-18.0 [facility] Comment on above: Performed By: #### A MM #### [facility] [address] [place] [address] Dr. Jeffrey Thomas Urea nitrogen/Creatinine [Mass ratio] 16.7 mg/mg Normal [facility] Comment on above: Performed By: #### A MM #### [facility] [address] [place] [address] Dr. Jeffrey Thomas BNPon 05-22-2022 Natriuretic peptide B (Bld) [Mass/Vol] 1738.0 pg/mL Critically high <=900.0 [facility] Comment on above: Performed By: #### C MP #### [facility] [address] [place] [address] Dr. Jeffrey Thomas CBC AUTO DIFFon 05-22-2022 BASO # 0.1 103/ul Normal 0.0-0.1 [facility] Comment on above: Performed By: #### C MP #### [facility] [address] [place] [address] Dr. Jeffrey Thomas Basophils/100 WBC (Bld) 1.0 % Normal 0.2-2.0 [facility] Comment on above: Performed By: #### C MP #### [facility] [address] [place] [address] Dr. Jeffrey Thomas EO # 0.1 103/ul Normal 0.0-0.7 [facility] Comment on above: Performed By: #### C MP #### [facility] [address] [place] [address] Dr. Jeffrey Thomas Eosinophils/100 WBC (Bld) 1.0 % Normal 0.9-7.0 [facility] Comment on above: Performed By: #### C MP #### [facility] [address] [place] [address] Dr. Jeffrey Thomas Erythrocyte distribution width (RBC) [Ratio] 17.2 % Critically high 11.0-15.0 [facility] Comment on above: Performed By: #### C MP #### [facility] [address] [place] [address] Dr. Jeffrey Thomas Hematocrit (Bld) [Volume fraction] 36.8 % Normal 36.0-48.0 [facility] Comment on above: Performed By: #### C MP #### [facility] [address] [place] [address] Dr. Jeffrey Thomas Hemoglobin (Bld) [Mass/Vol] 11.8 g/dL Critically low 12.0-16.0 [facility] Comment on above: Performed By: #### C MP #### [facility] [address] [place] [address] Dr. Jeffrey Thomas IG # 0.01 10e3/ul Normal 0.00-0.03 [facility] Comment on above: Performed By: #### C MP #### [facility] [address] [place] [address] Dr. Jeffrey Thomas IG % 0.2 % Normal 0.0-0.5 [facility] Comment on above: Performed By: #### C MP #### [facility] [address] [place] [address] Dr. Jeffrey Thomas LYMPH # 1.4 103/ul Normal 1.2-3.8 [facility] Comment on above: Performed By: #### C MP #### [facility] [address] [place] [address] Dr. Jeffrey Thomas Lymphocytes/100 WBC (Bld) 28.2 % Normal 20.5-60.0 [facility] Comment on above: Performed By: #### C MP #### [facility] [address] [place] [address] Dr. Jeffrey Thomas MANUAL DIFF REQ NO Normal [facility] Comment on above: Performed By: #### C MP #### [facility] [address] [place] [address] Dr. Jeffrey Thomas MCH (RBC) [Entitic mass] 29.0 pg Normal 26.7-34.0 [facility] Comment on above: Performed By: #### C MP #### [facility] [address] [place] [address] Dr. Jeffrey Thomas MCHC (RBC) [Mass/Vol] 32.1 g/dL Normal 29.9-35.2 [facility] Comment on above: Performed By: #### C MP #### [facility] [address] [place] [address] Dr. Jeffrey Thomas MCV (RBC) [Entitic vol] 90.4 fL Normal 81.0-99.0 [facility] Comment on above: Performed By: #### C MP #### [facility] [address] [place] [address] Dr. Jeffrey Thomas MONO # 0.4 103/ul Normal 0.3-0.8 [facility] Comment on above: Performed By: #### C MP #### [facility] [address] [place] [address] Dr. Jeffrey Thomas Monocytes/100 WBC (Bld) 7.3 % Normal 1.7-12.0 [facility] Comment on above: Performed By: #### C MP #### [facility] [address] [place] [address] Dr. Jeffrey Thomas NEUT # 3.0 103/ul Normal 1.4-6.5 [facility] Comment on above: Performed By: #### C MP #### [facility] [address] [place] [address] Dr. Jeffrey Thomas Neutrophils/100 WBC (Bld) 62.3 % Normal 43.0-75.0 [facility] Comment on above: Performed By: #### C MP #### [facility] [address] [place] [address] Dr. Jeffrey Thomas Platelet mean volume (Bld) [Entitic vol] 10.4 fL Normal 9.5-13.5 [facility] Comment on above: Performed By: #### C MP #### [facility] [address] [address] [address] Jeffrey Thomas PLT 254 103/ul Normal 150-450 [facility] Comment on above: Performed By: #### C MP #### [facility] [address] [address] [address] Jeffrey Thomas RBC 4.07 106/ul Critically low 4.20-5.40 [facility] Comment on above: Performed By: #### C MP #### [facility] [address] [address] [address] Jeffrey Thomas WBC 4.8 103/ul Normal 4.0-11.0 [facility] Comment on above: Performed By: #### C MP #### [facility] [address] [address] [address] ABD/PELVIS WO CONon [...] SALOME JOLLY Date: 2022-05-22 15:45 Normal [facility] CULTURE URINEon 05-22-2022 CULTURE URINE Culture Observations : LIGHT GROWTH OF MIXED GENITAL CANDIDA. NO POTENTIAL PATHOGENS SEEN. Normal [facility] Comment on above: Performed By: #### A MM #### [facility] [address] [place] [address] Dr. Jeffrey Thomas [facility]04 SARS-CoV-2 (COVID-19) RNA REBECCA+probe Ql (Unsp spec) Not detected Normal NOT DETECTED [facility] Comment on above: Result Comment: When diagnostic [...] for this test is supported by the [place] of [employer] and [employer]'s declaration that [...] used). Performed By: #### C MP #### [facility] [address] [place] [address] Dr. Jeffrey Thomas ER URINE PROFILEon 3 Bilirubin Ql (U) Negative Normal NEGATIVE [facility] Comment on above: Performed By: #### C MP #### [facility] [address] [place] [address] Dr. Jeffrey Thomas Clarity (U) CLEAR Normal CLEAR [facility] Comment on above: Performed By: #### C MP #### [facility] [address] [place] [address] Dr. Jeffrey Thomas Color (U) YELLOW Normal YELLOW [facility] Comment on above: Performed By: #### C MP #### [facility] [address] [place] [address] Dr. Jeffrey Thomas ERUD A micrscopic examination will be performed if indicated. Normal [facility] Comment on above: Performed By: #### C MP #### [facility] [address] [place] [address] Dr. Jeffrey Thomas Glucose Ql (U) Negative Normal NEGATIVE [facility] Comment on above: Performed By: #### C MP #### [facility] [address] [place] [address] Dr. Jeffrey Thomas Hemoglobin Ql (U) Negative Normal NEGATIVE [facility] Comment on above: Performed By: #### C MP #### [facility] [address] [address] [address] Jeffrey Thomas Ketones Ql (U) Negative Normal NEGATIVE [facility] Comment on above: Performed By: #### C MP #### [facility] [address] [place] [address] Dr. Jeffrey Thomas LEUKOCYTES Negative Normal NEGATIVE [facility] Comment on above: Performed By: #### C MP #### [facility] [address] [address] [address] Jeffrey Thomas Nitrite Ql (U) Negative Normal NEGATIVE [facility] Comment on above: Performed By: #### C MP #### [facility] [address] [place] [address] Dr. Jeffrey Thomas pH (U) 5.0 [pH] Normal 5-9 [facility] Comment on above: Performed By: #### C MP #### [facility] [address] [place] [address] Dr. Jeffrey Thomas SPEC GRAVITY 1.020 Normal 1.005-<=1.[address] [place] [address] Comment on above: Performed By: #### C MP #### [facility] [address] [place] [address] Dr. Jeffrey Thomas UA PROTEIN Negative Normal NEGATIVE/ TRACE [facility] Comment on above: Performed By: #### C MP #### [facility] [address] [place] [address] Dr. Jeffrey Thomas UR MICRO IND NOT INDICATED Normal [facility] Comment on above: Performed By: #### C MP #### [facility] [address] [place] [address] Dr. Jeffrey Thomas Urobilinogen Qn (U) 0.2 {Bere'U}/dL Normal 0.2 - 1. 0 [facility] Comment on above: Performed By: #### C MP #### [facility] [address] [place] [address] Dr. Jeffrey Thomas INFLUENZA A AND B AGon 05-22 INFLUANEGH SEE BELOW Normal [facility] Comment on above: Result Comment: Nega tive for Flu A protein angiten. Infection due to Flu A cannot be ruled out. Flu A angiten in the sample may be below the detection limit of the test. Performed By: #### C MP #### [facility] [address] [place] [address] Dr. Jeffrey Thomas [facility] SEE BELOW Normal [facility] Comment on above: Result Comment: Nega tive for Flu B protein antigen. Infection due to Flu B cannot be ruled out. Flu B antigen in the sample may be below the detection limit of the test. Performed By: #### C MP #### [facility] [address] [place] [address] Dr. Jeffrey Thomas INFLUENZA A AG Negative Normal NEGATIVE SEE COMMENT [facility] Comment on above: Performed By: #### C MP #### [facility] [address] [place] [address] Dr. Jeffrey Thomas INFLUENZA B AG Negative Normal NEGATIVE SEE COMMENT [facility] Comment on above: Performed By: #### C MP #### [facility] [address] [place] [address] Dr. Jeffrey Thomas LACTATE/LACTIC ACIDon 2022 Lactate [Moles/Vol] 1.4 mmol/L Normal 0.4-1.9 [facility] Comment on above: Performed By: #### L ACT #### [facility] [address] [place] [address] Dr. Jeffrey Thomas Lactate [Moles/Vol] 1.1 mmol/L Normal 0.4-1.9 [facility] Comment on above: Performed By: #### T 4LC #### [facility] [address] [place] [address] Dr. Jeffrey Thomas LIPASEon 05-22-2022 Lipase [Catalytic activity/Vol] 21.0 U/L Critically low 73.0-393.0 [facility] Comment on above: Performed By: #### C MP #### [facility] [address] [place] [address] Dr. Jeffrey Thomas PROF 14(COMP METB)on 023 Albumin [Mass/Vol] 3.2 g/dL Critically low 3.4-5.0 [facility] Comment on above: Performed By: #### C MP #### [facility] [address] [address] [address] Jeffrey Thomas Albumin/Globulin [Mass ratio] 1.0 {ratio} Normal [facility] Comment on above: Performed By: #### C MP #### [facility] [address] [address] [address] Jeffrey Thomas ALP [Catalytic activity/Vol] 133 U/L Critically high 46-116 [facility] Comment on above: Performed By: #### C MP #### [facility] [address] [address] [address] Jeffrey Thomas ALT [Catalytic activity/Vol] 14 U/L Normal 14-59 [facility] Comment on above: Performed By: #### C MP #### [facility] [address] [place] [address] Dr. Jeffrey Thomas Anion gap [Moles/Vol] 17.3 mmol/L Normal [facility] Comment on above: Performed By: #### C MP #### [facility] [address] [place] [address] Dr. Jeffrey Thomas AST [Catalytic activity/Vol] 18 U/L Normal 15-37 [facility] Comment on above: Performed By: #### C MP #### [facility] [address] [place] [address] Dr. Jeffrey Thomas Bilirubin [Mass/Vol] 0.5 mg/dL Normal 0.2-1.0 [facility] Comment on above: Performed By: #### C MP #### [facility] [address] [place] [address] Dr. Jeffrey Thomas Calcium [Mass/Vol] 9.0 mg/dL Normal 8.5-10.1 [facility] Comment on above: Performed By: #### C MP #### [facility] [address] [address] [address] Jeffrey Thomas Chloride [Moles/Vol] 107 mmol/L Normal 98-107 [facility] Comment on above: Performed By: #### C MP #### [facility] [address] [address] [address] Jeffrey Thomas CO2 [Moles/Vol] 20.0 mmol/L Critically low 21.0-32.0 [facility] Comment on above: Performed By: #### C MP #### [facility] [address] [address] [address] Jeffrey Thomas Creatinine [Mass/Vol] 1.05 mg/dL Critically high 0.55-1.02 [facility] Comment on above: Performed By: #### C MP #### [facility] [address] [place] [address] Dr. Jeffrey Thomas EGFR-AF GIBRALTARIAN >60 Normal >=60 [facility] Comment on above: Performed By: #### C MP #### [facility] [address] [place] [address] Dr. Jeffrey Thomas EGFR-NON AF GIBRALTARIAN 53 mL/min/1.73m2 Critically low >=60 [facility] Comment on above: Performed By: #### C MP #### [facility] [address] [place] [address] Dr. Jeffrey Thomas Globulin (S) [Mass/Vol] 3.1 g/dL Normal [facility] Comment on above: Performed By: #### C MP #### [facility] [address] [place] [address] Dr. Jeffrey Thomas Glucose [Mass/Vol] 117 mg/dL Critically high 74-106 T [facility] Comment on above: Performed By: #### C MP #### [facility] [address] [place] [address] Dr. Jeffrey Thomas Potassium [Moles/Vol] 4.3 mmol/L Normal 3.5-5.1 [facility] Comment on above: Performed By: #### C MP #### [facility] [address] [place] [address] Dr. Jeffrey Thomas Protein [Mass/Vol] 6.3 g/dL Critically low 6.4-8.2 Th [facility] Comment on above: Performed By: #### C MP #### [facility] [address] [address] [address] Jeffrey Thomas Sodium [Moles/Vol] 140 mmol/L Normal 136-145 [facility] Comment on above: Performed By: #### C MP #### [facility] [address] [place] [address] Dr. Jeffrey Thomas Urea nitrogen [Mass/Vol] 20.0 mg/dL Critically high 7.0-18.0 [facility] Comment on above: Performed By: #### C MP #### [facility] [address] [place] [address] Dr. Jeffrey Thomas Urea nitrogen/Creatinine [Mass ratio] 19.0 mg/mg Normal [facility] Comment on above: Performed By: #### C MP #### [facility] [address] [place] [address] Dr. Jeffrey Thomas PROTIMEon 05-22-2022 INR Coag (PPP) [Relative time] 0.99 {INR} Normal [facility] Comment on above: Performed By: #### C MP #### [facility] [address] [place] [address] Dr. Jeffrey Thomas INR GUIDELINES SEE BELOW Normal [facility] Comment on above: Result Comment: MERARI RED INR: 2.0 - 3.0 CONDITIONS NOT LISTED BELOW 2.5 - 3.5 FOR PROSTHETIC HEART VALVE REPLACEMENT 2.5 - 3.5 RECURRENT THROMBOSIS Performed By: #### C MP #### [facility] [address] [place] [address] Dr. Jeffrey Thomas PT Coag (PPP) [Time] 10.5 s Normal 9.0-11.6 [facility] Comment on above: Performed By: #### C MP #### [facility] [address] [place] [address] Dr. Jeffrey Thomas PTTon 05-22-2022 aPTT Coag (Bld) [Time] 25.9 s Normal 22.3-36.2 [facility] Comment on above: Performed By: #### C MP #### [facility] [address] [place] [address] Dr. Jeffrey Thomas TROPONIN, HIGH SENSITIVITYon 05-22-2022 HSTROP 6.1 pg/mL Normal 4.0-51.3 [facility] Comment on above: Result Comment: CUT- OFF POINTS HAVE BEEN ESTABLISHED BASED ON THE FOURTH UNIVERSAL DEFINITIONS OF MYOCARDIAL INFARCTION. THE UPPER REFERENCE LIMIT (URL) OF TROPONIN, DEFINED THE 99TH PERCENTILE OF cTnI DISTRIBUTION IN A REFERENCE POPULATION, HAS BEEN CONFIRMED THE DECISION THRESHOLD FOR MO DIAGNOSIS. Performed By: #### C #### [facility] [address] [place], [place] [address] Dr. Jeffrey Thomas US SINGLE QUAD RT [...] by: ABDIAS WEN Date: 2022-05-22 17:32 Normal [facility] XR CHEST 1 Von 05-22-2022 XR CHEST [...] MELLY SEO Date: 2022-05-22 15:32 Normal [facility] PT Coag (PPP) [Time]on 05-04 INR Coag (PPP) [Relative time] 1.7 {INR} Normal <=5.0 [facility] Comment on above: Result Comment: The recommended therapeutic INR range for most cardiac indications is 2.0-3.0 For high intensity therapy (i.e. mechanical heart valves), the recommended range is 2.5-3.5 Performed By: #### 5 902-2 #### [facility] [address] [place] [address] Prothrombin timeon 3 PT Coag (PPP) [Time] 18.8 s High 11.9-14.7 [facility] Comment on above: Performed By: #### 5 902-2 #### [facility] [address] [place] [address] Basic metabolic 2000 panelon 05-03-2022 Anion gap [Moles/Vol] 8 mmol/L Normal 6-18 [facility] Comment on above: Performed By: #### 2 4321-2 #### [facility] [address] [place] [address] Calcium [Mass/Vol] 8.6 mg/dL Low 8.9-10.3 [facility] Comment on above: Performed By: #### 2 4321-2 #### [facility] [address] [place] [address] Chloride [Moles/Vol] 109 mmol/L High 98-107 [facility] Comment on above: Performed By: #### 2 4321-2 #### [facility] [address] [place] [address] CO2 [Moles/Vol] 25 mmol/L Normal 22-32 [facility] Comment on above: Performed By: #### 2 4321-2 #### [facility] [place] [facility] [address] [place] [address] Creatinine [Mass/Vol] 1.07 mg/dL Normal 0.60-1.30 [facility] Comment on above: Performed By: #### 2 4321-2 #### [facility] [place] [address] [place] [address] 21890 GFR/1.73 sq M.predicted among non-blacks MDRD (S/P/Bld) [Vol rate/Area] 58 mL/min/{1.73_m2} Low >=60 [facility] Comment on above: Result Comment: Effe ctive January 08, 2022, calculation based on the?Chronic Kidney Disease Epidemiology Collaboration (CKD-EPI) equation refit?without adjustment for race. Performed By: #### 2 4321-2 #### [facility] [place] [address] [place] [address] 49960 Glucose [Mass/Vol] 78 mg/dL Normal 70-99 [facility] Comment on above: Performed By: #### 2 4321-2 #### [facility] [place] [address] [place] [address] 99710 Potassium [Moles/Vol] 5.1 mmol/L Normal 3.6-5.1 [facility] Comment on above: Performed By: #### 2 4321-2 #### [facility] [place] [address] [place] [address] 39711 Sodium [Moles/Vol] 142 mmol/L Normal 136-145 [facility] Comment on above: Performed By: #### 2 4321-2 #### [facility] [place] [address] [place] [address] Urea nitrogen [Mass/Vol] 35 mg/dL High 8-20 [facility] Comment on above: Performed By: #### 2 4321-2 #### [facility] [place] [address] [place] [address] 56972 Urea nitrogen/Creatinine [Mass ratio] 32.7 mg/mg High 12.0-20.0 [facility] Comment on above: Performed By: #### 2 4321-2 #### [facility] [place] [address] [place] [address] 28162 Hemogram and platelets WO di fferential panel (Bld)on 05-03-2022 Erythrocyte distribution width (RBC) [Ratio] 16.4 % High 11.0-14.8 [facility] Comment on above: Performed By: #### 2 4321-2 #### [facility] [place] [facility] [address] [place] [address] 61628 Hematocrit (Bld) [Volume fraction] 33.4 % Low 34.3-47.9 [facility] Comment on above: Performed By: #### 2 4321-2 #### [facility] [place] [address] [place] [address] 34372 Hemoglobin (Bld) [Mass/Vol] 10.0 g/dL Low 12.0-16.0 [facility] Comment on above: Performed By: #### 2 1-2 #### [facility] [place] [address] [place] [address] 22944 MCH 27.2 pcg Normal 27.0-34.0 [facility] Comment on above: Performed By: #### 2 4321-2 #### [facility] [place] [address] [place] [address] 86165 MCHC (RBC) [Mass/Vol] 29.9 g/dL Low 30.8-35.3 [facility] Comment on above: Performed By: #### 2 1-2 #### [facility] [place] [address] [place] [address] 17846 MCV (RBC) [Entitic vol] 91.0 fL Normal 80.0-97.0 [facility] Comment on above: Performed By: #### 2 4321-2 #### [facility] [place] [address] [place] [address] 71526 Platelet mean volume (Bld) [Entitic vol] 11.6 fL Normal 6.2-12.1 [facility] Comment on above: Performed By: #### 2 4321-2 #### [facility] [place] [address] [place] [address] 52866 Platelets (Bld) [#/Vol] 283 10*3/uL Normal 142-424 [facility] Comment on above: Performed By: #### 2 4321-2 #### [facility] [place] [address] [place] [address] 66288 RBC (Bld) [#/Vol] 3.67 10*6/uL Low 3.74-5.34 [facility] Comment on above: Performed By: #### 2 4321-2 #### [facility] [place] [address] [place] [address] 34027 WBC (Bld) [#/Vol] 5.5 10*3/uL Normal 4.6-10.2 [facility] Comment on above: Performed By: #### 2 4321-2 #### [facility] [place] [address] [place] [address] 11112 PT Coag (PPP) [Time]on 05-03 INR Coag (PPP) [Relative time] 1.6 {INR} Normal <=5.0 [facility] Comment on above: Result Comment: The recommended therapeutic INR range for most cardiac indications is 2.0-3.0 For high intensity therapy (i.e. mechanical heart valves), the recommended range is 2.5-3.5 Performed By: #### 5 902-2 #### [facility] [place] [address] [place] [address] 63097 Prothrombin timeon PT Coag (PPP) [Time] 17.7 s High 11.9-14.7 [facility] Comment on above: Performed By: #### 5 902-2 #### [facility] [place] [facility] [address] [place] [address] Nuclear IgG IA Ql (S)on 04-04 Bacteria identified Cx Nom (U) 1 ORGANISM 202 Abnormal >509017 CFU/mL Escherichia coli The organism value for [...] Islt <=20 ug/ml Susceptible Invalid Interpretation Code [facility] Comment on above: Performed By: #### 2 4321-2 #### [facility] [address] [place] [address] Bacteria, Urine Many Abnormal None [facility] Comment on above: Performed By: #### 2 4321-2 #### [facility] [place] [address] [place] [address] Bilirubin, Urine Negative Normal Negative [facility] Comment on above: Performed By: #### 2 4321-2 #### [facility] ([facility] [address] [place] [address] Blood, Urine 3+ Abnormal Negative [facility] Comment on above: Performed By: #### 2 4321-2 #### [facility] [place] [address] [place] [address] Clarity (U) Slightly Cloudy Abnormal Clear [facility] Comment on above: Performed By: #### 2 4321-2 #### [facility] [place] [facility] [address] [place] [address] Color (U) Renata Abnormal Yellow [facility] Comment on above: Performed By: #### 2 4321-2 #### [facility] [place] [facility] [address] [place] [address] Glucose Ql (U) Normal Normal Normal [facility] Comment on above: Performed By: #### 2 4321-2 #### [facility] [place] [facility] [address] [place] [address] 89802 Ketones Ql (U) Negative Normal Negative [facility] Comment on above: Performed By: #### 2 4321-2 #### [facility] [place] [address] [place] [address] 67014 Leukocytes, Urine 250 WBCs/mcL Abnormal Negative [facility] Comment on above: Performed By: #### 2 4321-2 #### [facility] [place] [address] [place] [address] 61751 Mucus, UA Rare Abnormal None [facility] Comment on above: Performed By: #### 2 4321-2 #### [facility] [place] [address] [place] [address] 93296 Nitrite, Urine Negative Normal Negative [facility] Comment on above: Performed By: #### 2 4321-2 #### [facility] [place] [facility] [address] [place] [address] 29914 pH (U) 6.0 [pH] Normal 5.0-8.0 [facility] Comment on above: Performed By: #### 2 4321-2 #### [facility] [place] [facility] [address] [place] [address] 98152 Protein (U) [Mass/Vol] 30 mg/dL Abnormal Negative [facility] Comment on above: Performed By: #### 2 4321-2 #### [facility] [place] [facility] [address] [place] [address] RBC LM.HPF (Urine sed) [#/Area] 362 /[HPF] High 0-5 [facility] Comment on above: Performed By: #### 2 4321-2 #### [facility] [place] [address] [place] [address] Specific Temple Urine 1.012 Normal 1.002-1.030 [facility] Comment on above: Performed By: #### 2 4321-2 #### [facility] [place] [address] [place] [address] Squamous Epithelial, Urine Rare Abnormal None [facility] Comment on above: Performed By: #### 2 4321-2 #### [facility] [place] [address] [place] [address] Urobilinogen, Urine Normal Normal Normal [facility] Comment on above: Performed By: #### 2 4321-2 #### [facility] [place] [address] [place] [address] WBC LM.HPF (Urine sed) [#/Area] 47 /[HPF] High 0-5 [facility] Comment on above: Performed By: #### 2 4321-2 #### [facility] [place] [address] [place] [address] PT Coag (PPP) [Time]on 05-02 INR Coag (PPP) [Relative time] 1.4 {INR} Normal <=5.0 [facility] Comment on above: Result Comment: The recommended therapeutic INR range for most cardiac indications is 2.0-3.0 For high intensity therapy (i.e. mechanical heart valves), the recommended range is 2.5-3.5 Performed By: #### 5 902-2 #### [facility] [place] [address] [place] [address] Prothrombin timeon 3 PT Coag (PPP) [Time] 15.9 s High 11.9-14.7 [facility] Comment on above: Performed By: #### 5 902-2 #### [facility] [place] [address] [place] [address] Basic metabolic 2000 panelon 05-01-2022 Anion gap [Moles/Vol] 8 mmol/L Normal 6-18 [facility] Comment on above: Performed By: #### 5 902-2 #### [facility] [place] [address] [place] [address] Calcium [Mass/Vol] 8.6 mg/dL Low 8.9-10.3 [facility] Comment on above: Performed By: #### 5 902-2 #### [facility] [place] [address] [place] [address] Chloride [Moles/Vol] 108 mmol/L High 98-107 [facility] Comment on above: Performed By: #### 5 902-2 #### [facility] [place] [address] [place] [address] CO2 [Moles/Vol] 25 mmol/L Normal 22-32 [facility] Comment on above: Performed By: #### 5 902-2 #### [facility] [place] [address] [place] [address] Creatinine [Mass/Vol] 0.97 mg/dL Normal 0.60-1.30 [facility] Comment on above: Performed By: #### 5 902-2 #### [facility] [place] [address] [place] [address] GFR/1.73 sq M.predicted among non-blacks MDRD (S/P/Bld) [Vol rate/Area] 65 mL/min/{1.73_m2} Normal >=60 [facility] Comment on above: Result Comment: Effe ctive January 08, 2022, calculation based on the?Chronic Kidney Disease Epidemiology Collaboration (CKD-EPI) equation refit?without adjustment for race. Performed By: #### 5 902-2 #### [facility] [place] [address] [place] [address] 14030 Glucose [Mass/Vol] 82 mg/dL Normal 70-99 [facility] Comment on above: Performed By: #### 5 902-2 #### [facility] [place] [address] [place] [address] 28497 Potassium [Moles/Vol] 4.5 mmol/L Normal 3.6-5.1 [facility] Comment on above: Performed By: #### 5 902-2 #### [facility] [place] [facility] [address] [place] [address] 04109 Sodium [Moles/Vol] 141 mmol/L Normal 136-145 [facility] Comment on above: Performed By: #### 902-2 #### [facility] [place] [facility] [address] [place] [address] 25975 Urea nitrogen [Mass/Vol] 34 mg/dL High 8-20 [facility] Comment on above: Performed By: #### 5 902-2 #### [facility] [place] [facility] [address] [place] [address] 01468 Urea nitrogen/Creatinine [Mass ratio] 35.1 mg/mg High 12.0-20.0 [facility] Comment on above: Performed By: #### 902-2 #### [facility] [place] [facility] [address] [place] [address] 11482 Hemogram and platelets WO di fferential panel (Bld)on 05-01-2022 Erythrocyte distribution width (RBC) [Ratio] 16.5 % High 11.0-14.8 [facility] Comment on above: Performed By: #### 2 4321-2 #### [facility] [place] [facility] [address] [place] [address] 20582 Hematocrit (Bld) [Volume fraction] 33.7 % Low 34.3-47.9 [facility] Comment on above: Performed By: #### 2 4321-2 #### [facility] [address] [place] [address] Hemoglobin (Bld) [Mass/Vol] 10.3 g/dL Low 12.0-16.0 [facility] Comment on above: Performed By: #### 2 1-2 #### [facility] [place] [facility] [address] [place] [address] 80420 MCH 28.1 pcg Normal 27.0-34.0 [facility] Comment on above: Performed By: #### 2 1-2 #### [facility] [place] [facility] [address] [place] [address] 89661 MCHC (RBC) [Mass/Vol] 30.6 g/dL Low 30.8-35.3 [facility] Comment on above: Performed By: #### 2 1-2 #### [facility] [place] [facility] [address] [place] [address] 21491 MCV (RBC) [Entitic vol] 92.1 fL Normal 80.0-97.0 [facility] Comment on above: Performed By: #### 2 1-2 #### [facility] [place] [facility] [address] [place] [address] 50653 Platelet mean volume (Bld) [Entitic vol] 11.6 fL Normal 6.2-12.1 [facility] Comment on above: Performed By: #### 2 1-2 #### [facility] [place] [facility] [address] [place] [address] 89462 Platelets (Bld) [#/Vol] 275 10*3/uL Normal 142-424 [facility] Comment on above: Performed By: #### 2 4321-2 #### [facility] [place] [address] [place] [address] 20538 RBC (Bld) [#/Vol] 3.66 10*6/uL Low 3.74-5.34 [facility] Comment on above: Performed By: #### 2 4321-2 #### [facility] [place] [facility] [address] [place] [address] 88144 WBC (Bld) [#/Vol] 5.9 10*3/uL Normal 4.6-10.2 [facility] Comment on above: Performed By: #### 2 4321-2 #### [facility] [address] [place] [address] 29772 PT Coag (PPP) [Time]on 05-01 INR Coag (PPP) [Relative time] 1.3 {INR} Normal <=5.0 [facility] Comment on above: Result Comment: The recommended therapeutic INR range for most cardiac indications is 2.0-3.0 For high intensity therapy (i.e. mechanical heart valves), the recommended range is 2.5-3.5 Performed By: #### 2 4321-2 #### [facility] ([facility] [address] [place] [address] 73534 Prothrombin timeon 3 PT Coag (PPP) [Time] 15.6 s High 11.9-14.7 [facility] Comment on above: Performed By: #### 2 4321-2 #### [facility] [address] [place] [address] 18772 PT Coag (PPP) [Time]on 04-30 INR Coag (PPP) [Relative time] 1.4 {INR} Normal <=5.0 [facility] Comment on above: Result Comment: The recommended therapeutic INR range for most cardiac indications is 2.0-3.0 For high intensity therapy (i.e. mechanical heart valves), the recommended range is 2.5-3.5 Performed By: #### 5 902-2 #### [facility] [address] [place] [address] 63757 Prothrombin timeon 3 PT Coag (PPP) [Time] 16.0 s High 11.9-14.7 [facility] Comment on above: Performed By: #### 5 902-2 #### [facility] [address] [place] [address] [place] [address] Basic metabolic 2000 panelon 04-29-2022 Anion gap [Moles/Vol] 6 mmol/L Normal 6-18 [facility] Comment on above: Performed By: #### 5 902-2 #### [facility] [place] [facility] [address] [place] [address] Calcium [Mass/Vol] 8.7 mg/dL Low 8.9-10.3 [facility] Comment on above: Performed By: #### 5 902-2 #### [facility] [place] [facility] [address] [place] [address] 42018 Chloride [Moles/Vol] 103 mmol/L Normal 98-107 [facility] Comment on above: Performed By: #### 5 902-2 #### [facility] [place] [facility] [address] [place] [address] 72740 CO2 [Moles/Vol] 28 mmol/L Normal 22-32 [facility] Comment on above: Performed By: #### 5 902-2 #### [facility] [place] [facility] [address] [place] [address] 11163 Creatinine [Mass/Vol] 1.14 mg/dL Normal 0.60-1.30 [facility] Comment on above: Performed By: #### 5 902-2 #### [facility] [place] [facility] [address] [place] [address] 18570 GFR/1.73 sq M.predicted among non-blacks MDRD (S/P/Bld) [Vol rate/Area] 54 mL/min/{1.73_m2} Low >=60 [facility] Comment on above: Result Comment: Effe ctive January 08, 2022, calculation based on the?Chronic Kidney Disease Epidemiology Collaboration (CKD-EPI) equation refit?without adjustment for race. Performed By: #### 5 902-2 #### [facility] [place] [facility] [address] [place] [address] Glucose [Mass/Vol] 90 mg/dL Normal 70-99 [facility] Comment on above: Performed By: #### 5 902-2 #### [facility] [place] [facility] [address] [place] [address] 00664 Potassium [Moles/Vol] 4.8 mmol/L Normal 3.6-5.1 [facility] Comment on above: Performed By: #### 5 902-2 #### [facility] [place] [facility] [address] [place] [address] 42996 Sodium [Moles/Vol] 137 mmol/L Normal 136-145 [facility] Comment on above: Performed By: #### 5 902-2 #### [facility] [place] [facility] [address] [place] [address] 19105 Urea nitrogen [Mass/Vol] 35 mg/dL High 8-20 [facility] Comment on above: Performed By: #### 5 902-2 #### [facility] [place] [facility] [address] [place] [address] 64219 Urea nitrogen/Creatinine [Mass ratio] 30.7 mg/mg High 12.0-20.0 [facility] Comment on above: Performed By: #### 5 902-2 #### [facility] [place] [facility] [address] [place] [address] 72694 PT Coag (PPP) [Time]on 04-29 INR Coag (PPP) [Relative time] 1.4 {INR} Normal <=5.0 [facility] Comment on above: Result Comment: The recommended therapeutic INR range for most cardiac indications is 2.0-3.0 For high intensity therapy (i.e. mechanical heart valves), the recommended range is 2.5-3.5 Performed By: #### 5 902-2 #### [facility] [place] [facility] [address] [place] [address] 33870 Prothrombin timeon 3 PT Coag (PPP) [Time] 16.5 s High 11.9-14.7 [facility] Comment on above: Performed By: #### 5 902-2 #### [facility] [address] [place] [address] 93276 PT Coag (PPP) [Time]on 04-28 INR Coag (PPP) [Relative time] 1.3 {INR} Normal <=5.0 [facility] Comment on above: Result Comment: The recommended therapeutic INR range for most cardiac indications is 2.0-3.0 For high intensity therapy (i.e. mechanical heart valves), the recommended range is 2.5-3.5 Performed By: #### 5 902-2 #### [facility] [place] [facility] [address] [place] [address] 94548 Prothrombin timeon PT Coag (PPP) [Time] 15.6 s High 11.9-14.7 [facility] Comment on above: Performed By: #### 5 902-2 #### [facility] [address] [place] [address] 45655 Basic metabolic 2000 panelon 04-27-2022 Anion gap [Moles/Vol] 10 mmol/L Normal 6-18 [facility] Comment on above: Performed By: #### 2 4321-2 #### [facility] [address] [place] [address] 77270 Calcium [Mass/Vol] 8.4 mg/dL Low 8.9-10.3 [facility] Comment on above: Performed By: #### 2 4321-2 #### [facility] [place] [facility] [address] [place] [address] 56442 Chloride [Moles/Vol] 105 mmol/L Normal 98-107 [facility] Comment on above: Performed By: #### 2 4321-2 #### [facility] [address] [place] [address] 52242 CO2 [Moles/Vol] 22 mmol/L Normal 22-32 [facility] Comment on above: Performed By: #### 2 4321-2 #### [facility] [place] [facility] [address] [place] [address] 47807 Creatinine [Mass/Vol] 1.12 mg/dL Normal 0.60-1.30 [facility] Comment on above: Performed By: #### 2 4321-2 #### [facility] [place] [facility] [address] [place] [address] GFR/1.73 sq M.predicted among non-blacks MDRD (S/P/Bld) [Vol rate/Area] 55 mL/min/{1.73_m2} Low >=60 [facility] Comment on above: Result Comment: Effe ctive January 08, 2022, calculation based on the?Chronic Kidney Disease Epidemiology Collaboration (CKD-EPI) equation refit?without adjustment for race. Performed By: #### 2 4321-2 #### [facility] [address] [place] [address] Glucose [Mass/Vol] 82 mg/dL Normal 70-99 [facility] Comment on above: Performed By: #### 2 4321-2 #### [facility] [place] [facility] [address] [place] [address] Potassium [Moles/Vol] 5.6 mmol/L High 3.6-5.1 [facility] Comment on above: Performed By: #### 2 4321-2 #### [facility] [place] [facility] [address] [place] [address] Sodium [Moles/Vol] 137 mmol/L Normal 136-145 [facility] Comment on above: Performed By: #### 2 4321-2 #### [facility] [place] [facility] [address] [place] [address] Urea nitrogen [Mass/Vol] 35 mg/dL High 8-20 [facility] Comment on above: Performed By: #### 2 4321-2 #### [facility] [place] [facility] [address] [place] [address] 31388 Urea nitrogen/Creatinine [Mass ratio] 31.3 mg/mg High 12.0-20.0 [facility] Comment on above: Performed By: #### 2 4321-2 #### [facility] [place] [facility] [address] [place] [address] PT Coag (PPP) [Time]on 04-27 INR Coag (PPP) [Relative time] 1.2 {INR} Normal <=5.0 [facility] Comment on above: Result Comment: The recommended therapeutic INR range for most cardiac indications is 2.0-3.0 For high intensity therapy (i.e. mechanical heart valves), the recommended range is 2.5-3.5 Performed By: #### 5 902-2 #### [facility] [address] [place] [address] 48616 Prothrombin timeon 3 PT Coag (PPP) [Time] 14.5 s Normal 11.9-14.7 [facility] Comment on above: Performed By: #### 5 902-2 #### [facility] [address] [place] [address] 31453 PT Coag (PPP) [Time]on 04-26 INR Coag (PPP) [Relative time] 1.2 {INR} Normal <=5.0 [facility] Comment on above: Result Comment: The recommended therapeutic INR range for most cardiac indications is 2.0-3.0 For high intensity therapy (i.e. mechanical heart valves), the recommended range is 2.5-3.5 Performed By: #### 2 4321-2 #### [facility] [address] [place] [id number] Prothrombin timeon 3 PT Coag (PPP) [Time] 14.3 s Normal 11.9-14.7 [facility] Comment on above: Performed By: #### 2 4321-2 #### [facility] [address] [place] [id number] Basic metabolic 2000 panelon 04-25-2022 Anion gap [Moles/Vol] 7 mmol/L Normal 6-18 [facility] Comment on above: Performed By: #### 2 4321-2 #### [facility] [address] [place] [address] Calcium [Mass/Vol] 8.5 mg/dL Low 8.9-10.3 [facility] Comment on above: Performed By: #### 2 4321-2 #### [facility] [address] [place] [address] Chloride [Moles/Vol] 104 mmol/L Normal 98-107 [facility] Comment on above: Performed By: #### 2 4321-2 #### [facility] [address] [place] [address] CO2 [Moles/Vol] 30 mmol/L Normal 22-32 [facility] Comment on above: Performed By: #### 2 4321-2 #### [facility] [address] [place] [address] Creatinine [Mass/Vol] 1.00 mg/dL Normal 0.60-1.30 [facility] Comment on above: Performed By: #### 2 4321-2 #### [facility] [place] [facility] [address] [place] [address] 51635 GFR/1.73 sq M.predicted among non-blacks MDRD (S/P/Bld) [Vol rate/Area] 63 mL/min/{1.73_m2} Normal >=60 [facility] Comment on above: Result Comment: Effe ctive January 08, 2022, calculation based on the?Chronic Kidney Disease Epidemiology Collaboration (CKD-EPI) equation refit?without adjustment for race. Performed By: #### 2 4321-2 #### [facility] [place] [facility] [address] [place] [address] Glucose [Mass/Vol] 89 mg/dL Normal 70-99 [facility] Comment on above: Performed By: #### 2 4321-2 #### [facility] [place] [facility] [address] [place] [address] Potassium [Moles/Vol] 5.2 mmol/L High 3.6-5.1 [facility] Comment on above: Performed By: #### 2 4321-2 #### [facility] ([facility]) [facility] [address] [place] [address] 04082 Sodium [Moles/Vol] 141 mmol/L Normal 136-145 [facility] Comment on above: Performed By: #### 2 4321-2 #### [facility] ([facility]) [facility] [address] [place] [address] 77166 Urea nitrogen [Mass/Vol] 25 mg/dL High 8-20 [facility] Comment on above: Performed By: #### 2 4321-2 #### [facility] ([facility]) [facility] [address] [place] [address] 00253 Urea nitrogen/Creatinine [Mass ratio] 25.0 mg/mg High 12.0-20.0 [facility] Comment on above: Performed By: #### 2 4321-2 #### [facility] ([facility]) [facility] [address] [place] [address] 14625 PT Coag (PPP) [Time]on 04-25 INR Coag (PPP) [Relative time] 1.2 {INR} Normal <=5.0 [facility] Comment on above: Result Comment: The recommended therapeutic INR range for most cardiac indications is 2.0-3.0 For high intensity therapy (i.e. mechanical heart valves), the recommended range is 2.5-3.5 Performed By: #### 5 902-2 #### [facility] ([facility]) [facility] [address] [place] [address] 06781 Prothrombin timeon PT Coag (PPP) [Time] 14.0 s Normal 11.9-14.7 [facility] Comment on above: Performed By: #### 5 902-2 #### [facility] [address] [place] [address] 61670 Basic metabolic 2000 panelon 04-24-2022 Anion gap [Moles/Vol] 7 mmol/L Normal 6-18 [facility] Comment on above: Performed By: #### 2 4321-2 #### [facility] [place] [facility] [address] [place] [address] Calcium [Mass/Vol] 8.7 mg/dL Low 8.9-10.3 [facility] Comment on above: Performed By: #### 2 4321-2 #### [facility] [address] [place] [address] Chloride [Moles/Vol] 106 mmol/L Normal 98-107 [facility] Comment on above: Performed By: #### 2 4321-2 #### [facility] [address] [place] [address] 26516 CO2 [Moles/Vol] 28 mmol/L Normal 22-32 [facility] Comment on above: Performed By: #### 2 4321-2 #### [facility] [place] [facility] [address] [place] [address] 28497 Creatinine [Mass/Vol] 1.14 mg/dL Normal 0.60-1.30 [facility] Comment on above: Performed By: #### 2 4321-2 #### [facility] [place] [facility] [address] [place] [address] 25605 GFR/1.73 sq M.predicted among non-blacks MDRD (S/P/Bld) [Vol rate/Area] 54 mL/min/{1.73_m2} Low >=60 [facility] Comment on above: Result Comment: Effe ctive January 08, 2022, calculation based on the?Chronic Kidney Disease Epidemiology Collaboration (CKD-EPI) equation refit?without adjustment for race. Performed By: #### 2 4321-2 #### [facility] [address] [place] [address] 80390 Glucose [Mass/Vol] 95 mg/dL Normal 70-99 [facility] Comment on above: Performed By: #### 2 4321-2 #### [facility] [address] [place] [address] 94969 Potassium [Moles/Vol] 5.3 mmol/L High 3.6-5.1 [facility] Comment on above: Performed By: #### 2 4321-2 #### [facility] [address] [place] [address] Sodium [Moles/Vol] 141 mmol/L Normal 136-145 [facility] Comment on above: Performed By: #### 2 4321-2 #### [facility] [place] [facility] [address] [place] [address] 43539 Urea nitrogen [Mass/Vol] 25 mg/dL High 8-20 [facility] Comment on above: Performed By: #### 2 4321-2 #### [facility] [address] [place] [address] 10774 Urea nitrogen/Creatinine [Mass ratio] 21.9 mg/mg High 12.0-20.0 [facility] Comment on above: Performed By: #### 2 4321-2 #### [facility] [address] [place] [address] 76679 Hemogram and platelets WO di fferential panel (Bld)on 04-24-2022 Erythrocyte distribution width (RBC) [Ratio] 16.9 % High 11.0-14.8 [facility] Comment on above: Performed By: #### 2 4317-0 #### [facility] [address] [place] [address] 26390 Hematocrit (Bld) [Volume fraction] 35.3 % Normal 34.3-47.9 [facility] Comment on above: Performed By: #### 2 4317-0 #### [facility] [place] [facility] [address] [place] [address] 54746 Hemoglobin (Bld) [Mass/Vol] 10.9 g/dL Low 12.0-16.0 [facility] Comment on above: Performed By: #### 2 4317-0 #### [facility] [address] [place] [address] 48572 Immature Platelet Fraction 14.0 % High 1.4-10.8 [facility] Comment on above: Performed By: #### 2 4317-0 #### [facility] [address] [place] [address] MCH 28.9 pcg Normal 27.0-34.0 [facility] Comment on above: Performed By: #### 2 4317-0 #### [facility] [place] [facility] [address] [place] [address] 99356 MCHC (RBC) [Mass/Vol] 30.9 g/dL Normal 30.8-35.3 [facility] Comment on above: Performed By: #### 2 4317-0 #### [facility] [address] [place] [address] 50048 MCV (RBC) [Entitic vol] 93.6 fL Normal 80.0-97.0 [facility] Comment on above: Performed By: #### 2 4317-0 #### [facility] [place] [facility] [address] [place] [address] 62338 Platelet mean volume (Bld) [Entitic vol] 12.9 fL High 6.2-12.1 [facility] Comment on above: Performed By: #### 2 4317-0 #### [facility] [address] [place] [address] 88946 Platelets (Bld) [#/Vol] 160 10*3/uL Normal 142-424 [facility] Comment on above: Performed By: #### 2 4317-0 #### [facility] [address] [place] [address] 57647 RBC (Bld) [#/Vol] 3.77 10*6/uL Normal 3.74-5.34 [facility] Comment on above: Performed By: #### 2 4317-0 #### [facility] [address] [place] [address] 32302 WBC (Bld) [#/Vol] 7.7 10*3/uL Normal 4.6-10.2 [facility] Comment on above: Performed By: #### 2 4317-0 #### [facility] [address] [place] [address] PT Coag (PPP) [Time]on 04-24 INR Coag (PPP) [Relative time] 1.1 {INR} Normal <=5.0 [facility] Comment on above: Result Comment: The recommended therapeutic INR range for most cardiac indications is 2.0-3.0 For high intensity therapy (i.e. mechanical heart valves), the recommended range is 2.5-3.5 Performed By: #### 2 4321-2 #### [facility] [address] [place] [address] Prothrombin timeon PT Coag (PPP) [Time] 13.9 s Normal 11.9-14.7 [facility] Comment on above: Performed By: #### 2 4321-2 #### [facility] [address] [place] [address] 76012 Basic metabolic 2000 panelon 04-23-2022 Anion gap [Moles/Vol] 8 mmol/L Normal 6-18 [facility] Comment on above: Performed By: #### 2 4321-2 #### [facility] [address] [place] [address] 68382 Calcium [Mass/Vol] 8.5 mg/dL Low 8.9-10.3 [facility] Comment on above: Performed By: #### 2 4321-2 #### [facility] [address] [place] [address] 65537 Chloride [Moles/Vol] 106 mmol/L Normal 98-107 [facility] Comment on above: Performed By: #### 2 4321-2 #### [facility] [place] [facility] [address] [place] [address] CO2 [Moles/Vol] 28 mmol/L Normal 22-32 [facility] Comment on above: Performed By: #### 2 4321-2 #### [facility] [address] [place] [address] Creatinine [Mass/Vol] 1.01 mg/dL Normal 0.60-1.30 [facility] Comment on above: Performed By: #### 2 4321-2 #### [facility] [address] [place] [address] 29967 GFR/1.73 sq M.predicted among non-blacks MDRD (S/P/Bld) [Vol rate/Area] 62 mL/min/{1.73_m2} Normal >=60 [facility] Comment on above: Result Comment: Effe ctive January 08, 2022, calculation based on the?Chronic Kidney Disease Epidemiology Collaboration (CKD-EPI) equation refit?without adjustment for race. Performed By: #### 2 4321-2 #### [facility] [address] [place] [address] 83295 Glucose [Mass/Vol] 108 mg/dL High 70-99 [facility] Comment on above: Performed By: #### 2 4321-2 #### [facility] [address] [place] [address] 61538 Potassium [Moles/Vol] 5.0 mmol/L Normal 3.6-5.1 [facility] Comment on above: Performed By: #### 2 4321-2 #### [facility] [address] [place] [address] 00430 Sodium [Moles/Vol] 142 mmol/L Normal 136-145 [facility] Comment on above: Performed By: #### 2 4321-2 #### [facility] [address] [place] [address] 44686 Urea nitrogen [Mass/Vol] 23 mg/dL High 8-20 [facility] Comment on above: Performed By: #### 2 4321-2 #### [facility] [address] [place] [address] 71407 Urea nitrogen/Creatinine [Mass ratio] 22.8 mg/mg High 12.0-20.0 [facility] Comment on above: Performed By: #### 2 4321-2 #### [facility] ([facility]) [facility] [address] [place] [address] 20174 Hemogram and platelets WO di fferential panel (Bld)on 04-23-2022 Basophils (Bld) [#/Vol] 0.06 10*3/uL Normal 0.00-0.20 [facility] Comment on above: Performed By: #### 2 4321-2 #### [facility] [address] [place] [address] 94258 Basophils/100 WBC (Bld) 0.7 % Normal 0.0-2.0 [facility] Comment on above: Performed By: #### 2 1-2 #### [facility] ([facility] [address] [place] [address] 96084 Eosinophils (Bld) [#/Vol] 0.17 10*3/uL Normal 0.00-0.70 [facility] Comment on above: Performed By: #### 2 1-2 #### [facility] [address] [place] [address] 61979 Eosinophils/100 WBC (Bld) 2.1 % Normal 0.0-7.0 [facility] Comment on above: Performed By: #### 2 1-2 #### [facility] [address] [place] [address] 51421 Erythrocyte distribution width (RBC) [Ratio] 17.0 % High 11.0-14.8 [facility] Comment on above: Performed By: #### 2 1-2 #### [facility] [address] [place] [address] 28725 Hematocrit (Bld) [Volume fraction] 34.1 % Low 34.3-47.9 [facility] Comment on above: Performed By: #### 2 1-2 #### [facility] ([facility] [address] [place] [address] 44910 Hemoglobin (Bld) [Mass/Vol] 10.4 g/dL Low 12.0-16.0 [facility] Comment on above: Performed By: #### 2 4321-2 #### [facility] [address] [place] [address] 80426 Immature granulocytes (Bld) [#/Vol] 0.02 10*3/uL Normal 0.00-0.10 [facility] Comment on above: Performed By: #### 2 4321-2 #### [facility] [address] [place] [address] 63741 Immature granulocytes/100 WBC (Bld) 0.2 % Normal 0.0-1.2 [facility] Comment on above: Performed By: #### 2 1-2 #### [facility] [address] [address] Lymphocytes (Bld) [#/Vol] 2.24 10*3/uL Normal 1.00-4.80 [facility] Comment on above: Performed By: #### 2 1-2 #### [facility] [address] [address] Lymphocytes/100 WBC (Bld) 27.4 % Normal 17.9-49.6 [facility] Comment on above: Performed By: #### 2 1-2 #### [facility] [address] [address] MCH 28.4 pcg Normal 27.0-34.0 [facility] Comment on above: Performed By: #### 2 4321-2 #### [facility] [address] [address] MCHC (RBC) [Mass/Vol] 30.5 g/dL Low 30.8-35.3 [facility] Comment on above: Performed By: #### 2 4321-2 #### [facility] [place] [facility] [address] [place] [address] MCV (RBC) [Entitic vol] 93.2 fL Normal 80.0-97.0 [facility] Comment on above: Performed By: #### 2 4321-2 #### [facility] [place] [facility] [address] [place] [address] 41920 Monocytes (Bld) [#/Vol] 0.98 10*3/uL High 0.00-0.90 [facility] Comment on above: Performed By: #### 2 4321-2 #### [facility] [place] [facility] [address] [place] [address] 14700 Monocytes/100 WBC (Bld) 12.0 % Normal 0.0-12.0 [facility] Comment on above: Performed By: #### 2 1-2 #### [facility] [place] [facility] [address] [place] [address] 36032 Neutrophils Absolute 4.71 K/mcL Normal 1.80-7.70 [facility] Comment on above: Performed By: #### 2 1-2 #### [facility] [address] [place] [address] 17045 Neutrophils/100 WBC (Bld) 57.6 % Normal 38.1-75.5 [facility] Comment on above: Performed By: #### 2 1-2 #### [facility] [place] [facility] [address] [place] [address] 79913 Platelet mean volume (Bld) [Entitic vol] 13.0 fL High 6.2-12.1 [facility] Comment on above: Performed By: #### 2 1-2 #### [facility] [place] [facility] [address] [place] [address] 48567 Platelets (Bld) [#/Vol] 175 10*3/uL Normal 142-424 [facility] Comment on above: Performed By: #### 2 1-2 #### [facility] [address] [place] [address] 95422 RBC (Bld) [#/Vol] 3.66 10*6/uL Low 3.74-5.34 [facility] Comment on above: Performed By: #### 2 4321-2 #### [facility] [address] [place] [address] WBC (Bld) [#/Vol] 8.2 10*3/uL Normal 4.6-10.2 [facility] Comment on above: Performed By: #### 2 4321-2 #### [facility] [address] [place] [address] 57481 PT Coag (PPP) [Time]on 04-23 INR Coag (PPP) [Relative time] 1.1 {INR} Normal <=5.0 [facility] Comment on above: Result Comment: The recommended therapeutic INR range for most cardiac indications is 2.0-3.0 For high intensity therapy (i.e. mechanical heart valves), the recommended range is 2.5-3.5 Performed By: #### 2 4321-2 #### [facility] [address] [place] [address] 55712 Prothrombin timeon PT Coag (PPP) [Time] 13.4 s Normal 11.9-14.7 [facility] Comment on above: Performed By: #### 2 4321-2 #### [facility] [address] [place] [address] 27528 Basic metabolic 2000 panelon 04-22-2022 Anion gap [Moles/Vol] 6 mmol/L Normal 6-18 [facility] Comment on above: Performed By: #### 1 988-5 #### [facility] [address] [place] [address] Calcium [Mass/Vol] 8.3 mg/dL Low 8.9-10.3 [facility] Comment on above: Performed By: #### 1 988-5 #### [facility] [address] [place] [address] Chloride [Moles/Vol] 107 mmol/L Normal 98-107 [facility] Comment on above: Performed By: #### 1 988-5 #### [facility] [address] [place] [address] CO2 [Moles/Vol] 25 mmol/L Normal 22-32 [facility] Comment on above: Performed By: #### 1 988-5 #### [facility] [address] [place] [address] Creatinine [Mass/Vol] 1.06 mg/dL Normal 0.60-1.30 [facility] Comment on above: Performed By: #### 1 988-5 #### [facility] [address] [place] [address] GFR/1.73 sq M.predicted among non-blacks MDRD (S/P/Bld) [Vol rate/Area] 59 mL/min/{1.73_m2} Low >=60 [facility] Comment on above: Result Comment: Effe ctive January 08, 2022, calculation based on the?Chronic Kidney Disease Epidemiology Collaboration (CKD-EPI) equation refit?without adjustment for race. Performed By: #### 1 988-5 #### [facility] [address] [place] [address] Glucose [Mass/Vol] 104 mg/dL High 70-99 [facility] Comment on above: Performed By: #### 1 988-5 #### [facility] [address] [place] [address] Potassium [Moles/Vol] 4.7 mmol/L Normal 3.6-5.1 [facility] Comment on above: Performed By: #### 1 988-5 #### [facility] [address] [place] [address] Sodium [Moles/Vol] 138 mmol/L Normal 136-145 [facility] Comment on above: Performed By: #### 1 988-5 #### [facility] [address] [place] [address] Urea nitrogen [Mass/Vol] 24 mg/dL High 8-20 [facility] Comment on above: Performed By: #### 1 988-5 #### [facility] [address] [place] [address] Urea nitrogen/Creatinine [Mass ratio] 22.6 mg/mg High 12.0-20.0 [facility] Comment on above: Performed By: #### 1 988-5 #### [facility] [address] [place] [address] Anion gap [Moles/Vol] 6 mmol/L 6 - 18 [facility] Calcium [Mass/Vol] 8.3 mg/dL Low 8.9 - 10. 3 mg/dL [facility] Chloride [Moles/Vol] 107 mmol/L 98 - 10 7 mmol/L [facility] CO2 [Moles/Vol] 25 mmol/L 22 - 32 mmol/L [facility] Creatinine [Mass/Vol] 1.06 mg/dL 0.60 - 1.30 mg/dL [facility] GFR/1.73 sq M.predicted among non-blacks MDRD (S/P/Bld) [Vol rate/Area] 59 mL/min/{1.73_m2} Low - PINF [facility] Comment on above: Effective January 08, 2022, calculation based on the Chronic Kidney Disease Epidemiology Collaboration (CKD-EPI) equation refit without adjustment for race. Glucose [Mass/Vol] 104 mg/dL High 70 - 99 mg/dL [facility] Interpretation and review of laboratory results Abnormal [facility] Potassium [Moles/Vol] 4.7 mmol/L 3.6 - 5.1 mmol/L [facility] Sodium [Moles/Vol] 138 mmol/L 136 - 145 mmol/L [facility] Urea nitrogen [Mass/Vol] 24 mg/dL High 8 - 20 mg/dL [facility] Urea nitrogen/Creatinine [Mass ratio] 22.6 mg/mg High 12.0 - 20.0 [facility] Hemogram and platelets WO di fferential panel (Bld)on 04-22-2022 Erythrocyte distribution width (RBC) [Ratio] 16.4 % High 11.0-14.8 [facility] Comment on above: Performed By: #### 1 988-5 #### [facility] [address] [place] [address] 18228 Hematocrit (Bld) [Volume fraction] 35.8 % Normal 34.3-47.9 [facility] Comment on above: Performed By: #### 1 988-5 #### [facility] [address] [place] [address] Hemoglobin (Bld) [Mass/Vol] 10.9 g/dL Low 12.0-16.0 [facility] Comment on above: Performed By: #### 1 988-5 #### [facility] [address] [place] [address]25 MCH 28.2 pcg Normal 27.0-34.0 [facility] Comment on above: Performed By: #### 1 988-5 #### [facility] [address] [place] [address] 47503 MCHC (RBC) [Mass/Vol] 30.4 g/dL Low 30.8-35.3 [facility] Comment on above: Performed By: #### 1 988-5 #### [facility] [address] [place] [address] 27144 MCV (RBC) [Entitic vol] 92.5 fL Normal 80.0-97.0 [facility] Comment on above: Performed By: #### 1 988-5 #### [facility] [address] [place] [address] Platelet mean volume (Bld) [Entitic vol] 12.4 fL High 6.2-12.1 [facility] Comment on above: Performed By: #### 1 988-5 #### [facility] [address] [place] [address] 34859 Platelets (Bld) [#/Vol] 158 10*3/uL Normal 142-424 [facility] Comment on above: Performed By: #### 1 988-5 #### [facility] [address] [place] [address] 26701 RBC (Bld) [#/Vol] 3.87 10*6/uL Normal 3.74-5.34 [facility] Comment on above: Performed By: #### 1 988-5 #### [facility] [address] [place] [address] 96534 WBC (Bld) [#/Vol] 9.0 10*3/uL Normal 4.6-10.2 [facility] Comment on above: Performed By: #### 1 988-5 #### [facility] [address] [place] [address] 73837 Erythrocyte distribution width (RBC) [Ratio] 16.4 % High 11.0 - 14.8 % [facility] Hematocrit (Bld) [Volume fraction] 35.8 % 34.3 - 47.9 % [facility] Hemoglobin (Bld) [Mass/Vol] 10.9 g/dL Low 12.0 - 16.0 g/dL [facility] Interpretation and review of laboratory results Abnormal [facility] [employer] [facility] MCH (RBC) [Entitic mass] 28.2 pg [facility] MCHC (RBC) [Mass/Vol] 30.4 g/dL Low 30.8 - 35.3 g/dL [facility] MCV (RBC) [Entitic vol] 92.5 fL [facility] Platelet mean volume (Bld) [Entitic vol] 12.4 fL [facility] Platelets (Bld) [#/Vol] 158 10*3/uL [facility] RBC (Bld) [#/Vol] 3.87 10*6/uL [facility] WBC (Bld) [#/Vol] 9.0 10*3/uL [facility] PT Coag (PPP) [Time]on 04-22 INR Coag (PPP) [Relative time] 0.9 {INR} Normal <=5.0 [facility] Comment on above: Result Comment: The recommended therapeutic INR range for most cardiac indications is 2.0-3.0 For high intensity therapy (i.e. mechanical heart valves), the recommended range is 2.5-3.5 Performed By: #### 1 988-5 #### [facility] [address] [place] [id number] INR Coag (PPP) [Relative time] 0.9 {INR} NINF - 5.0 [facility] Comment on above: The recommended ther apeutic INR range for most cardiac indications is 2.0-3.0 For high intensity therapy (i.e. mechanical heart valves), the recommended range is 2.5-3.5 Interpretation and review of laboratory results Normal [facility] PT Coag (Bld) [Time] 12.6 s [facility] Prothrombin timeon 3 PT Coag (PPP) [Time] 12.6 s Normal 11.9-14.7 [facility] Comment on above: Performed By: #### 1 988-5 #### [facility] [address] [place] [id number] SARS-CoV-2 (COVID-19) RNA NA A+probe Ql (Resp)on 04-22-2022 Interpretation and review of laboratory results Normal [facility] SARS-CoV-2 (COVID-19) RdRp gene REBECCA+probe Ql (Resp) Not detected Not Detected [facility] SARS-CoV-2 RNA Resp Ql REBECCA+p robeon 04-22-2022 SARS-CoV-2 (COVID-19) RNA REBECCA+probe Ql (Resp) Not detected Normal Not Detected [facility] Comment on above: Performed By: #### 5 75-1 #### [facility] [address] [place] [address] Basic metabolic 2000 panelon 04-21-2022 Anion gap [Moles/Vol] 9 mmol/L Normal 6-18 [facility] Comment on above: Performed By: #### 1 988-5 #### [facility] [address] [place] [address] Calcium [Mass/Vol] 8.2 mg/dL Low 8.9-10.3 [facility] Comment on above: Performed By: #### 1 988-5 #### [facility] [address] [place] [address] Chloride [Moles/Vol] 108 mmol/L High 98-107 Moun [facility] Comment on above: Performed By: #### 1 988-5 #### [facility] [address] [place] [address] CO2 [Moles/Vol] 22 mmol/L Normal 22-32 [facility] Comment on above: Performed By: #### 1 988-5 #### [facility] [address] [place] [address] Creatinine [Mass/Vol] 1.19 mg/dL Normal 0.60-1.30 [facility] Comment on above: Performed By: #### 1 988-5 #### [facility] [address] [place] [address] GFR/1.73 sq M.predicted among non-blacks MDRD (S/P/Bld) [Vol rate/Area] 51 mL/min/{1.73_m2} Low >=60 [facility] Comment on above: Result Comment: Effe ctive January 08, 2022, calculation based on the?Chronic Kidney Disease Epidemiology Collaboration (CKD-EPI) equation refit?without adjustment for race. Performed By: #### 1 988-5 #### [facility] [address] [place] [address] Glucose [Mass/Vol] 135 mg/dL High 70-99 [facility] Comment on above: Performed By: #### 1 988-5 #### [facility] [address] [facility] [place] [address] Potassium [Moles/Vol] 4.6 mmol/L Normal 3.6-5.1 [facility] Comment on above: Performed By: #### 1 988-5 #### [facility] [address] [place] [address] Sodium [Moles/Vol] 139 mmol/L Normal 136-145 [facility] Comment on above: Performed By: #### 1 988-5 #### [facility] [address] [place] [address] Urea nitrogen [Mass/Vol] 19 mg/dL Normal 8-20 [facility] Comment on above: Performed By: #### 1 988-5 #### [facility] [address] [place] [address] Urea nitrogen/Creatinine [Mass ratio] 16.0 mg/mg Normal 12.0-20.0 [facility] Comment on above: Performed By: #### 1 988-5 #### [facility] [address] [facility] [place] [address] Anion gap [Moles/Vol] 9 mmol/L 6 - 18 [facility] Calcium [Mass/Vol] 8.2 mg/dL Low 8.9 - 10. 3 mg/dL [facility] Chloride [Moles/Vol] 108 mmol/L High 98 - 10 7 mmol/L [facility] CO2 [Moles/Vol] 22 mmol/L 22 - 32 mmol/L [facility] Creatinine [Mass/Vol] 1.19 mg/dL 0.60 - 1.30 mg/dL [facility] GFR/1.73 sq M.predicted among non-blacks MDRD (S/P/Bld) [Vol rate/Area] 51 mL/min/{1.73_m2} Low - PINF [facility] Comment on above: Effective January 08, 2022, calculation based on the Chronic Kidney Disease Epidemiology Collaboration (CKD-EPI) equation refit without adjustment for race. Glucose [Mass/Vol] 135 mg/dL High 70 - 99 mg/dL [facility] Interpretation and review of laboratory results Abnormal [facility] Potassium [Moles/Vol] 4.6 mmol/L 3.6 - 5.1 mmol/L [facility] Sodium [Moles/Vol] 139 mmol/L 136 - 145 mmol/L [facility] Urea nitrogen [Mass/Vol] 19 mg/dL 8 - 20 mg/dL [facility] Urea nitrogen/Creatinine [Mass ratio] 16.0 mg/mg 12.0 - 20.0 [facility] Hemogram and platelets WO di fferential panel (Bld)on 04-21-2022 Erythrocyte distribution width (RBC) [Ratio] 15.9 % High 11.0-14.8 [facility] Comment on above: Performed By: #### 1 988-5 #### [facility] [address] [place] [address] Hematocrit (Bld) [Volume fraction] 37.0 % Normal 34.3-47.9 [facility] Comment on above: Performed By: #### 1 988-5 #### [facility] [address] [place] [address] Hemoglobin (Bld) [Mass/Vol] 11.6 g/dL Low 12.0-16.0 [facility] Comment on above: Performed By: #### 1 988-5 #### [facility] [address] [place] [address] MCH 28.2 pcg Normal 27.0-34.0 [facility] Comment on above: Performed By: #### 1 988-5 #### [facility] [address] [place] [address] MCHC (RBC) [Mass/Vol] 31.4 g/dL Normal 30.8-35.3 [facility] Comment on above: Performed By: #### 1 988-5 #### [facility] [address] [place] [address] MCV (RBC) [Entitic vol] 90.0 fL Normal 80.0-97.0 [facility] Comment on above: Performed By: #### 1 988-5 #### [facility] [address] [place] [address] Platelet mean volume (Bld) [Entitic vol] 12.3 fL High 6.2-12.1 [facility] Comment on above: Performed By: #### 1 988-5 #### [facility] [address] [place] [address] Platelets (Bld) [#/Vol] 220 10*3/uL Normal 142-424 [facility] Comment on above: Performed By: #### 1 988-5 #### [facility] [address] [place] [address] RBC (Bld) [#/Vol] 4.11 10*6/uL Normal 3.74-5.34 [facility] Comment on above: Performed By: #### 1 988-5 #### [facility] [address] [place] [address] WBC (Bld) [#/Vol] 13.5 10*3/uL High 4.6-10.2 [facility] Comment on above: Performed By: #### 1 988-5 #### [facility] [address] [place] [address] Erythrocyte distribution width (RBC) [Ratio] 15.9 % High 11.0 - 14.8 % [facility] Hematocrit (Bld) [Volume fraction] 37.0 % 34.3 - 47.9 % [facility] Hemoglobin (Bld) [Mass/Vol] 11.6 g/dL Low 12.0 - 16.0 g/dL [facility] Interpretation and review of laboratory results Abnormal [facility] MCH (RBC) [Entitic mass] 28.2 pg [facility] MCHC (RBC) [Mass/Vol] 31.4 g/dL 30.8 - 35.3 g/dL [facility] MCV (RBC) [Entitic vol] 90.0 fL [facility] Platelet mean volume (Bld) [Entitic vol] 12.3 fL High [facility] th Platelets (Bld) [#/Vol] 220 10*3/uL [facility] RBC (Bld) [#/Vol] 4.11 10*6/uL [facility] WBC (Bld) [#/Vol] 13.5 10*3/uL High [facility] Pathology studyOrdered By: Valerie Segura on 04-21-2022 Citation Rick (Reference lab test) h9cedTZhOOSctZMmNOVwZ UnpnfOjHKQqjEHdS2Ieve azHOecOB7kXM9fyIsbyFF acYWoVGXkEtFgg7xkf416 kTDgu2smLJJZogjsrWb9d 9siUIARAOglFVGUOVc9aK iyQ00bu9I6AlkwJ3beKQU gTAurijPytiR2IKDgjEFh ZCd5BVVebALxdeHuXeSyW SHrmZChwJF0BGSmDR3qil obMYynNIoyHOJdahB2MBO ltKYrK9KiXEWaVR9pjbgo SYO8LAzpUULjMIO7IhVoM HNut6Bbcgo3ZpUpfWYrYW xwbGFpblxpXGYxXGZzMTh hO2XcYCLxHBC6SVDjbbgp WXvkV20shU0zHT26AIhyt tGdXRLyo0QxQOUxLASuAX efQDCgokDsCYffsE4ya8k 0TTonZu1cFMOllwuzHRD0 SfMgGI80ArcmvQSeQOAMg mUsIENvbHVtYnVzLCBPaG ynWPMoJuI0RtRXfBGwv5G sh8HzWdPnfRZufK0ncGuk vqY2MCZyoOQeBb8gdULyV lxwYXJ9 [employer] Work Phone: Microscopic description Rick (Endomyocardium) i3gcvOJkRITviFYBOGXdI IDfGV8jxBerqJt0iItlWM GrcyO1dDYhQUado3izSTC 5o6yrikZSThrfFZVvAM0s BNpkPGIcCP6cEoQsKJXtU mYyXHBhcGVydzEyMjQwXH TjpSFbjBH1MMBeIG9dhxf lUTvdXNanAMTznsE8JCLu sOHtD7VeFGCyBQ5jtcvsI GC6RHCFVkzuOg0dkPFleJ ANCntcZjFcZmNoYXJzZXQ sFIUwsDxkDJSvPQg5jC3J b5jmEoxbQ7jidaOsxKCnR d8dbLBIDRjaOQXCEHw7mG 8WIRZbI4NrOQ7Tb7vwLWQ cuEZoHRY6XWpnr1tzDEfq MSI9ZPGaWEOzPYVoWK5AG iVjJOEiWqN6NbT6IzM3TA y0UUUELHZaWJw8DujrHUf 2DIn8TAlphdmkUWf1LOVp PEbmxHQvZT3rrUzhSevus Bypl6CepAIlNVUpDGcucM QgNTEwMDIgXFxkYiBPVlI fEnDeCVs8EUewNWRlYGb0 MThuM2JZEXHoRSD1OqWdA HGqMiU2RAg3PWMOGu4cEf W7YgRkVOA2JtA8YZXhLAG cXHQgMiBcXHNzIDMgXFxm dVUlEK5gfKquLMKuAI9UQ HBsYWluXGYxXGZzMjAgQS 2cS61sNPhfOIYpcBdzKtA eRXYiyIKczEXniAKvy4A0 uLLyOUh9nFTiq8R1pOdmQ GluZmlsdHJhdGVzOlxwYX IgDQpccGFyZCANClxwbGF pblxmMVxmczIwXHBsYWlu QSd3caMiXNEpLaUsJTKcD 02dj9RLx3JnLU7AOPd7sz EyvhifwO0pPMHxvsQwJSb cZjFcZnMyMCBSZWNlaXZl WWMschEqv7YaKQmeveQfK JIcjFWjDNcajGbutGN4dK MhxBRrFT9aGDYdCQPhIQA 3dQGuj8Z4FKHgtgj6SZHl tKffqwEkkA4xxZ2xlIQfM yBpbmZpbHRyYXRlcywgbG VmdCBrbmVlIiBpcyBhIDM kU70pBQejrfIqUPHpDH0a JQO7z2i6GPIwro6mepJ8M NGjEhMkI1ItxDmxVJdkgx 21leH7jFLoyKNtRHLThWS bn9AhO0flIS2fyWNbewCe nuJpAB78ABEhvnUfeRQhl HHwtVC4HGUjyP4rYqhvA7 sgQTEuXHBhciANClxwYXI cLDqwe9MeCEymmVzeUTTb KdFaKBdyufl6VU5JGEChR FxlcGljWHNhMCANClxlcG sgPrPopPOnDfB1GWOnwYZ aBRP3OA5faFbhRJLcL8Sl S0MlixG0CFAkxbRKKgnxH djylzMxTY7MoA== [employer] Work Phone: Pathology report final diagnosis Narrative k3mbvWVmQLKpcRRkKDQwC UzfsqTzTONqyWReD6Oqpy xlWDxlGH8gUJ0pzYgrwVM kqHYiEQBcIzVou0ets841 gCOzn5wyMXSDdltxxCj7v PpjP76ip7G0EwulK6luKE QwXGdyZWVuMFxibHVlMDt 9XHBhcGVydzEyMjQwXHBh mHJhdSU8VCLgZV9sexslZ FudTVvsGMEnjeM3UTAegX WpI6ZnRDGsZZ6zvfzrUJQ 5BPijEPKkUXE0LxCeFPIs t1Zzrrh0InOkgAa6f6rjT WHbPZUhlIhpk9usWNZ1JH YwiLRyE4emeS5tQFJvXQ0 sfrizp5plYZqoTRorZGPp oYT0lgG1QWFfgWDfX5Otb F6oZDVbJTWnwwVisSbpCo R9REsfhTActgphIzQeI39 udHW7uLWyeLXtZTqdWePy M0awNMTthpqdnIKrXLGeL PYUkNsfZV6gnaRxOHAdQu zeLUnbUnaflE0axFykua0 ccGFyICAgLSBOZWdhdGl2 AGYhk2Ejx5orazycqRGkw bVdyABagRVsh4K9rLHsWR s4sHZql1C7aDdwDGzhQxi tkW2kwDpzaq3cfEHhmO== [employer] Phone: [employer] Phone: Bacteria Spec Anaerobe Culto n 04-20-2022 Bacteria identified Anaer cx Nom (Unsp spec) Culture, Anaerobic Status = F No anaerobes grown after 4 days. Normal [facility] Comment on above: Performed By: #### 3 4556-1 #### [facility] [address] [place] [address] Performed By: #### 5 75-1 #### [facility] [address] [place] [address] Bacteria identified Anaer cx Nom (Unsp spec) Culture, Anaerobic Status = F No anaerobes grown after 4 days. Normal [facility] Comment on above: Performed By: #### 3 4556-1 #### [facility] [address] [place] [address] Bacteria Spec BFld Culton Bacteria identified Sterile [...] to a previously preliminary verified report. Normal [facility] Comment on above: Performed By: #### 6 36-1 #### [facility] [address] [place] [address] Bacteria Tiss Culton 023 Bacteria identified Cx [...] to a previously preliminary verified report. Normal [facility] Comment on above: Performed By: #### 3 4556-1 #### [facility] [address] [place] [address] Performed By: #### 5 75-1 #### [facility] [address] [place] [address] Cell count panel (Body fld)o n 04-20-2022 Fluid Eosinophils 4.0 % Normal [facility] Comment on above: Performed By: #### 1 988-5 #### [facility] [address] [place] [address] Fluid Lining Cells 1.0 % Normal [facility] Comment on above: Performed By: #### 1 988-5 #### [facility] [address] [place] [address] Fluid Lymphocytes 46.0 % Normal [facility] Comment on above: Performed By: #### 1 988-5 #### [facility] [address] [place] [address] Fluid Monocytes/Macrophages 24.0 % Normal [facility] Comment on above: Performed By: #### 1 988-5 #### [facility] [address] [place] [address] Fluid Neutrophils 25.0 % Normal [facility] Comment on above: Performed By: #### 1 988-5 #### [facility] [address] [place] [address] Clarity (Body fld) Hazy [facility] Color (Body fld) [place] [employer] RBC Auto (Body fld) [#/Vol] 96078 /mm3 [employer] Comment on above: The reference range and other method performance specifications have not been established for this fluid specimen. The test result should be integrated into the clinical context for interpretation. Specimen source Nom (Body fld) Synovial [employer] WBC (Body fld) [#/Vol] 111 /mm3 [employer] Comment on above: The reference range and other method performance specifications have not been established for this fluid specimen. The test result should be integrated into the clinical context for interpretation. [employer] Differential panel (Body fld )Ordered By: Valarie Delacruz on 04-20-2022 Eosinophils/100 WBC Manual cnt (Body fld) 4.0 % [facility] Fluid Lining Cells 1.0 % [facility] Lymphocytes/100 WBC Manual cnt (Body fld) 46.0 % [facility] Monocytes+Macrophages /100 WBC (Body fld) 24.0 % [facility] Neutrophils/100 WBC (Body fld) 25.0 % [facility] Fungus Skin Culton Fungus identified Cx Nom (Skin) Culture, Fungus Status = F No growth at 4 weeks Normal [facility] Comment on above: Performed By: #### 5 75-1 #### [facility] [address] [place] [address] Performed By: #### 3 4556-1 #### [facility] [address] [place] [address] Fungus identified Cx Nom (Skin) Culture, Fungus Status = F No growth at 4 weeks Normal [facility] Comment on above: Performed By: #### 5 75-1 #### [facility] [address] [place] [address] Glucose Auto test strip (Bld ) [Mass/Vol]on 04-20-2022 Glucose [Mass/Vol] 135 mg/dL High 70-99 [facility] Comment on above: Performed By: #### 1 988-5 #### [facility] [address] [place] [address] Glucose [Mass/Vol] 135 mg/dL High 70 - 99 mg/dL [facility] Interpretation and review of laboratory results Abnormal [facility] Mycobacterium Spec Culton Mycobacterium sp identified Org specific cx Nom (Unsp spec) Culture AFB Status = F No growth at 8 weeks AFB Stain Status = F No acid fast bacilli seen Normal [facility] Comment on above: Performed By: #### 5 43-9 #### [facility] [address] [place] [address] Performed By: #### 3 4556-1 #### [facility] [address] [place] [address] Performed By: #### 5 75-1 #### [facility] [address] [place] [address] Mycobacterium sp identified Org specific cx Nom (Unsp spec) Culture AFB Status = F No growth at 8 weeks AFB Stain Status = F No acid fast bacilli seen Normal [facility] Comment on above: Performed By: #### 5 75-1 #### [facility] [address] [place] [address] No Panel InformationOrdered By: Hilary Albarran on 04-20-2022 [employer] PT Coag (PPP) [Time]on 04-20 aPTT Coag (Bld) [Time] 22.0 s Low 23.3-35.3 [facility] Comment on above: Performed By: #### 1 988-5 #### [facility] [address] [place] [address] PT Coag (PPP) [Time]Ordered By: Hilary Albarran on 04-20-2022 INR Coag (PPP) [Relative time] 1.0 {INR} NINF - 5.0 [employer] Comment on above: The recommended ther apeutic INR range for most cardiac indications is 2.0-3.0 For high intensity therapy (i.e. mechanical heart valves), the recommended range is 2.5-3.5 Interpretation and review of laboratory results Normal [employer] PT Coag (Bld) [Time] 13.4 s [facility] Pathology studyon 04-20-2022 Pathology study Soft tissue, [...] performed at [facility], [address] [place] [address]. Microscopic examination was performed. Normal [facility] Comment on above: Performed By: #### 1 1526-1 #### [facility] [address] [place] [address] [facility] [address] [place] [address] XR KNEE 1-2 VIEWS LEFTon XR KNEE [...] Self Edit Transcribed Date: 04/20/2022 16:06 Normal [facility] XR Knee 1-2 Views Lefton FINDINGS/IMPRESSION: [...] By: Self Edit Transcribed Date: 04/20/2022 16:06 [employer] Radiology Study observation (narrative) [employer] XR Knee 1-2 Views LeftOrdere d By: Heriberto Saldana on 04-20-2022 [employer] Work Phone: aPTT Coag (Bld) [Time]on aPTT Coag (PPP) [Time] 22.0 s Low [employer] Interpretation and review of laboratory results Abnormal [employer] Covid-19 PCR (CVDTBH)on 04-02 SARS-CoV-2 (COVID-19) RNA REBECAC+probe Ql (Unsp spec) Not detected Normal NOT DETECTED [facility] Comment on above: Result Comment: When diagnostic [...] for this test is supported by the [place] of [employer] and Human Service's declaration that [...] be used). Performed By: #### C #### [facility] [address] [place] [address] Dr. Jeffrey Thomas Bacteria Spec Anaerobe Culto n 04-05-2022 Bacteria identified Anaer cx Nom (Unsp spec) Culture, Anaerobic Status = F No anaerobes grown after 4 days. Normal [facility] Comment on above: Performed By: #### 5 75-1 #### [facility] [address] [place] [address] Bacteria Spec BFld Culton Bacteria identified Sterile [...] to a previously preliminary verified report. Normal [facility] Comment on above: Performed By: #### 5 75-1 #### [facility] [address] [place] [address] Blood type and Indirect anti body screen panel (Bld)on 04-05-2022 ABO group Nom (Bld) A Normal [facility] Comment on above: Performed By: #### 3 4532-2 #### [facility] [address] [place] [address] Rh Type Positive Normal [facility] Comment on above: Performed By: #### 3 4532-2 #### [facility] [address] [place] [address] CRP [Mass/Vol]on 04-05-2022 Anion gap [Moles/Vol] 9 mmol/L Normal 6-18 [facility] Comment on above: Performed By: #### 1 988-5 #### [facility] [address] [place] [address] Calcium [Mass/Vol] 9.4 mg/dL Normal 8.9-10.3 [facility] Comment on above: Performed By: #### 1 988-5 #### [facility] [address] [place] [address] Chloride [Moles/Vol] 105 mmol/L Normal 98-107 Moun [facility] Comment on above: Performed By: #### 1 988-5 #### [facility] [address] [place] [address] CO2 [Moles/Vol] 24 mmol/L Normal 22-32 [facility] Comment on above: Performed By: #### 1 988-5 #### [facility] [address] [place] [address] Creatinine [Mass/Vol] 1.07 mg/dL Normal 0.60-1.30 [facility] Comment on above: Performed By: #### 1 988-5 #### [facility] [address] [place] [address] GFR/1.73 sq M.predicted among non-blacks MDRD (S/P/Bld) [Vol rate/Area] 58 mL/min/{1.73_m2} Low >=60 [facility] Comment on above: Result Comment: Effe ctive January 08, 2022, calculation based on the?Chronic Kidney Disease Epidemiology Collaboration (CKD-EPI) equation refit?without adjustment for race. Performed By: #### 1 988-5 #### [facility] [address] [place] [address] Glucose [Mass/Vol] 97 mg/dL Normal 70-99 [facility] Comment on above: Performed By: #### 1 988-5 #### [facility] [address] [facility] [place] [address] Potassium [Moles/Vol] 4.9 mmol/L Normal 3.6-5.1 [facility] Comment on above: Performed By: #### 1 988-5 #### [facility] [address] [place] [address] Sodium [Moles/Vol] 138 mmol/L Normal 136-145 [facility] Comment on above: Performed By: #### 1 988-5 #### [facility] [address] [place] [address] Urea nitrogen [Mass/Vol] 22 mg/dL High 8-20 [facility] Comment on above: Performed By: #### 1 988-5 #### [facility] [address] [place] [address] Urea nitrogen/Creatinine [Mass ratio] 20.6 mg/mg High 12.0-20.0 [facility] Comment on above: Performed By: #### 1 988-5 #### [facility] [address] [place] [address] Cell count panel (Body fld)o n 04-05-2022 Fluid Eosinophils 3.0 % Normal [facility] Comment on above: Result Comment: Boy ected result: Previously reported as 6.0 % on 04/05/2022 at 1416 EST. Performed By: #### 3 4556-1 #### [facility] [address] [place] [address] Fluid Lymphocytes 34.0 % Normal [facility] Comment on above: Result Comment: Boy ected result: Previously reported as 43.0 % on 04/05/2022 at 1416 EST. Performed By: #### 3 4556-1 #### [facility] [address] [place] [address] Fluid Monocytes/Macrophages 23.0 % Normal [facility] Comment on above: Result Comment: Boy ected result: Previously reported as 9.0 % on 04/05/2022 at 1416 EST. Performed By: #### 3 4556-1 #### [facility] [address] [facility] [place] [address] Fluid Neutrophils 40.0 % Normal [facility] Comment on above: Result Comment: Boy ected result: Previously reported as 39.0 % on 04/05/2022 at 1416 EST. Performed By: #### 3 4556-1 #### [facility] [address] [place], [place] [address] [address] Fluid Other Cells Normal [facility] Comment on above: Result Comment: Lini ng cells Corrected result: Previously reported as 3.0 % on 04/05/2022 at 1416 EST. Performed By: #### 3 4556-1 #### [facility] [address] [place], [place] [address] [address] Fungus Skin Culton Fungus identified Cx Nom (Skin) Culture, Fungus Status = F No growth at 4 weeks Normal [facility] Comment on above: Performed By: #### 3 4556-1 #### [facility] [address] [facility] [place] [address] Hemogram and platelets WO di fferential panel (Bld)on 04-05-2022 Sed Rate 41 mm/hr High 0-20 [facility] Comment on above: Performed By: #### 5 75-1 #### [facility] [address] [place] [address] Mycobacterium Spec Culton Mycobacterium sp identified Org specific cx Nom (Unsp spec) Culture AFB Status = F No growth at 8 weeks AFB Stain Status = F No acid fast bacilli seen Normal [facility] Comment on above: Performed By: #### 1 [id number] #### [facility] ([facility] [address] [place] [address] Basic metabolic 2000 panelon 01-05-2022 Anion gap [Moles/Vol] 12 mmol/L [facility] [employer] Calcium [Mass/Vol] 9.1 mg/dL 8.9 - 10. 3 mg/dL [facility] [employer] Chloride [Moles/Vol] 103 mmol/L 98 - 10 7 mmol/L [facility] [employer] CO2 [Moles/Vol] 19 mmol/L Low 22 - 32 mmol/L [facility] [employer] Creatinine [Mass/Vol] 1.28 mg/dL 0.60 - 1.30 mg/dL [facility] [employer] GFR/1.73 sq M.predicted MDRD (S/P/Bld) [Vol rate/Area] 44 mL/min/{1.73_m2} Low >=60 mL/min/1.73m 2 [facility] [employer] Glucose [Mass/Vol] 99 mg/dL 70 - 99 mg/dL [facility] [employer] Interpretation and review of laboratory results Abnormal [facility] [employer] Potassium [Moles/Vol] 5.1 mmol/L 3.6 - 5.1 mmol/L [facility] [employer] Sodium [Moles/Vol] 134 mmol/L Low 136 - 145 mmol/L [facility] [employer] Urea nitrogen [Mass/Vol] 34 mg/dL High 8 - 20 mg/dL [facility] [employer] Urea nitrogen/Creatinine [Mass ratio] 26.6 mg/[facility] [employer] Hemogram and platelets WO di fferential panel (Bld)on 01-05-2022 Basophils (Bld) [#/Vol] 0.10 10*3/uL [employer] Basophils/100 WBC (Bld) 0.8 % 0.0 - 2.0 % [facility] [employer] Eosinophils (Bld) [#/Vol] 0.29 10*3/uL [employer] Eosinophils/100 WBC (Bld) 2.3 % 0.0 - 7.0 % [employer] Erythrocyte distribution width (RBC) [Ratio] 15.8 % High 11.0 - 14.8 % [employer] Hematocrit (Bld) [Volume fraction] 35.6 % 34.3 - 47.9 % [employer] Hemoglobin (Bld) [Mass/Vol] 10.7 g/dL Low 12.0 [...] volume (Bld) [Entitic vol] 11.8 fL [facility] th Platelets (Bld) [#/Vol] 194 10*3/uL [...] 8.0 % 0.0 - 12.0 % [facility] [employer] Segmented neutrophils (Bld) [#/Vol] 9.02 10*3/uL High [facility] [employer] Segmented neutrophils/100 WBC (Bld) 71.0 % 38.1 - 75.5 % [facility] [employer] PT Coag (PPP) [Time]on 01-05 INR Coag (PPP) [Relative time] 1.0 {INR} <=5.0 [facility] Comment on above: The recommended ther apeutic INR range for most cardiac indications is 2.0-3.0 For high intensity therapy (i.e. mechanical heart valves), the recommended range is 2.5-3.5 Interpretation and review of laboratory results Normal [facility] [employer] PT Coag (Bld) [Time] 13.0 s [facility] [employer] Basic metabolic 2000 panelon 01-04-2022 Anion gap [Moles/Vol] 9 mmol/L [facility] [employer] Calcium [Mass/Vol] 8.9 mg/dL 8.9 - 10. 3 mg/dL [facility] [employer] Chloride [Moles/Vol] 103 mmol/L 98 - 10 7 mmol/L [facility] [employer] CO2 [Moles/Vol] 21 mmol/L Low 22 - 32 mmol/L [facility] [employer] Creatinine [Mass/Vol] 1.00 mg/dL 0.60 - 1.30 mg/dL [facility] [employer] GFR/1.73 sq M.predicted MDRD (S/P/Bld) [Vol rate/Area] 59 mL/min/{1.73_m2} Low >=60 mL/min/1.73m 2 [facility] [employer] Glucose [Mass/Vol] 129 mg/dL High 70 - 99 mg/dL [facility] [employer] Interpretation and review of laboratory results Abnormal [facility] [employer] Potassium [Moles/Vol] 5.0 mmol/L 3.6 - 5.1 mmol/L [facility] [employer] Sodium [Moles/Vol] 133 mmol/L Low 136 - 145 mmol/L [facility] [employer] Urea nitrogen [Mass/Vol] 26 mg/dL High 8 - 20 mg/dL [facility] [employer] Urea nitrogen/Creatinine [Mass ratio] 26.0 mg/mg High [facility] [employer] Hemogram and platelets WO di fferential panel [...] and review of laboratory results Abnormal [facility] [employer] Lymphocytes (Bld) [#/Vol] 2.77 10*3/uL [facility] [employer] Lymphocytes/100 WBC (Bld) 19.0 % 17.9 - 49.6 % [facility] Monocytes (Bld) [#/Vol] 1.31 10*3/uL High [facility] [employer] Monocytes/100 WBC (Bld) 9.0 % 0.0 - 12.0 % [facility] Segmented neutrophils (Bld) [#/Vol] 10.51 10*3/uL High [facility] [employer] Segmented neutrophils/100 WBC (Bld) 72.0 % 38.1 - 75.5 % [facility] [employer] PT Coag (PPP) [Time]Ordered By: Hilary Albarran on 01-04-2022 INR Coag (PPP) [Relative time] 0.9 {INR} <=5.0 [facility] [employer] Comment on above: The recommended ther apeutic INR range for most cardiac indications is 2.0-3.0 For high intensity therapy (i.e. mechanical heart valves), the recommended range is 2.5-3.5 Interpretation and review of laboratory results Normal [facility] [employer] PT Coag (Bld) [Time] 12.6 s [facility] [employer] Glucose Auto test strip (Bld ) [Mass/Vol]on 01-03-2022 Glucose [Mass/Vol] 144 mg/dL High 70 - 99 mg/dL [facility] Interpretation and review of laboratory results Abnormal [facility] [employer] Covid-19 PCR (CVDTBH)on SARS-CoV-2 (COVID-19) RNA REBECCA+probe Ql (Unsp spec) Not detected Normal NOT DETECTED [facility] Comment on above: Result Comment: When diagnostic [...] for this test is supported by the Electric Need[employer] Specialist of Health and Human Service's declaration that [...] used). Performed By: #### C MP #### [facility] [address] [place] [address] Dr. Jeffrey Thomas CBC AUTO DIFFon 12-14-2021 BASO # 0.1 103/ul Normal 0.0-0.1 [facility] Comment on above: Performed By: #### T 4LC #### [facility] [address] [place] [address] Dr. Jeffrey Thomas Basophils/100 WBC (Bld) 1.2 % Normal 0.2-2.0 [facility] Comment on above: Performed By: #### T 4LC #### [facility] [address] [place] [address] Dr. Jeffrey Thomas EO # 0.2 103/ul Normal 0.0-0.7 [facility] Comment on above: Performed By: #### T 4LC #### [facility] [address] [place] [address] Dr. Jeffrey Thomas Eosinophils/100 WBC (Bld) 3.2 % Normal 0.9-7.0 [facility] Comment on above: Performed By: #### T 4LC #### [facility] [address] [place] [address] Dr. Jeffrey Thomas Erythrocyte distribution width (RBC) [Ratio] 15.9 % Critically high 11.0-15.0 [facility] Comment on above: Performed By: #### T 4LC #### [facility] [address] [place] [address] Dr. Jeffrey Thomas Hematocrit (Bld) [Volume fraction] 35.1 % Critically low 36.0-48.0 [facility] Comment on above: Performed By: #### T 4LC #### [facility] [address] [place] [address] Dr. Jeffrey Thomas Hemoglobin (Bld) [Mass/Vol] 10.8 g/dL Critically low 12.0-16.0 [facility] Comment on above: Performed By: #### T 4LC #### [facility] [address] [place] [address] Dr. Jeffrey Thomas IG # 0.03 10e3/ul Normal 0.00-0.03 [facility] Comment on above: Performed By: #### T 4LC #### [facility] [address] [place] [address] Dr. Jeffrey Thomas IG % 0.4 % Normal 0.0-0.5 [facility] Comment on above: Performed By: #### T 4LC #### [facility] [address] [place] [address] Dr. Jeffrey Thomas LYMPH # 2.1 103/ul Normal 1.2-3.8 [facility] Comment on above: Performed By: #### T 4LC #### [facility] [address] [place] [address] Dr. Jeffrey Thomas Lymphocytes/100 WBC (Bld) 30.8 % Normal 20.5-60.0 [facility] Comment on above: Performed By: #### T 4LC #### [facility] [address] [place] [address] Dr. Jeffrey Thomas MANUAL DIFF REQ NO Normal [facility] Comment on above: Performed By: #### T 4LC #### [facility] [address] [place] [address] Dr. Jeffrey Thomas MCH (RBC) [Entitic mass] 30.3 pg Normal 26.7-34.0 [facility] Comment on above: Performed By: #### T 4LC #### [facility] [address] [place] [address] Dr. Jeffrey Thomas MCHC (RBC) [Mass/Vol] 30.8 g/dL Normal 29.9-35.2 [facility] Comment on above: Performed By: #### T 4LC #### [facility] [address] [place] [address] Dr. Jeffrey Thomas MCV (RBC) [Entitic vol] 98.6 fL Normal 81.0-99.0 [facility] Comment on above: Performed By: #### T 4LC #### [facility] [address] [place] [address] Dr. Jeffrey Thomas MONO # 0.5 103/ul Normal 0.3-0.8 [facility] Comment on above: Performed By: #### T 4LC #### [facility] [address] [place] [address] Dr. Jeffrey Thomas Monocytes/100 WBC (Bld) 7.5 % Normal 1.7-12.0 [facility] Comment on above: Performed By: #### T 4LC #### [facility] [address] [place] [address] Dr. Jeffrey Thomas NEUT # 3.9 103/ul Normal 1.4-6.5 [facility] Comment on above: Performed By: #### T 4LC #### [facility] [address] [place] [address] Dr. Jeffrey Thomas Neutrophils/100 WBC (Bld) 56.9 % Normal 43.0-75.0 [facility] Comment on above: Performed By: #### T 4LC #### [facility] [address] [place] [address] Dr. Jeffrey Thomas Platelet mean volume (Bld) [Entitic vol] 12.0 fL Normal 9.5-13.5 [facility] Comment on above: Performed By: #### T 4LC #### [facility] [address] [place] [address] Dr. Jeffrey Thomas PLT 209 103/ul Normal 150-450 [facility] Comment on above: Performed By: #### T 4LC #### [facility] [address] [place] [address] Dr. Jeffrey Thomas RBC 3.56 106/ul Critically low 4.20-5.40 [facility] Comment on above: Performed By: #### T 4LC #### [facility] [address] [place] [address] Dr. Jeffrey Thomas WBC 6.8 103/ul Normal 4.0-11.0 [facility] Comment on above: Performed By: #### T 4LC #### [facility] [address] [place] [address] Dr. Jeffrey Thomas PROF 14(COMP METB)on 022 Albumin [Mass/Vol] 2.5 g/dL Critically low 3.4-5.0 [facility] Comment on above: Performed By: #### L ACT #### [facility] [address] [place] [address] Dr. Jeffrey Thomas Albumin/Globulin [Mass ratio] 1.0 {ratio} Normal [facility] Comment on above: Performed By: #### L ACT #### [facility] [address] [place] [address] Dr. Jeffrey Thomas ALP [Catalytic activity/Vol] 94 U/L Normal 46-116 [facility] Comment on above: Performed By: #### L ACT #### [facility] [address] [place] [address] Dr. Jeffrey Thomas ALT [Catalytic activity/Vol] 9 U/L Critically low 14-59 [facility] Comment on above: Performed By: #### L ACT #### [facility] [address] [place] [address] Dr. Jeffrey Thomas Anion gap [Moles/Vol] 11.7 mmol/L Normal [facility] Comment on above: Performed By: #### L ACT #### [facility] [address] [place] [address] Dr. Jeffrey Thomas AST [Catalytic activity/Vol] 6 U/L Critically low 15-37 [facility] Comment on above: Performed By: #### L ACT #### [facility] [address] [place] [address] Dr. Jeffrey Thomas Bilirubin [Mass/Vol] 0.1 mg/dL Critically low 0.2-1.0 [facility] Comment on above: Performed By: #### L ACT #### [facility] [address] [place] [address] Dr. Jeffrey Thomas Calcium [Mass/Vol] 8.2 mg/dL Critically low 8.5-10.1 Th [facility] Comment on above: Performed By: #### L ACT #### [facility] [address] [address] [address] Jeffrey Thomas Chloride [Moles/Vol] 111 mmol/L Critically high 98-107 [facility] Comment on above: Performed By: #### L ACT #### [facility] [address] [address] [address] Jeffrey Thomas CO2 [Moles/Vol] 22.5 mmol/L Normal 21.0-32.0 [facility] Comment on above: Performed By: #### L ACT #### [facility] [address] [place] [address] Dr. Jeffrey Thomas Creatinine [Mass/Vol] 0.87 mg/dL Normal 0.55-1.02 [facility] Comment on above: Performed By: #### L ACT #### [facility] [address] [place] [address] Dr. Jeffrey Thomas EGFR-AF GIBRALTARIAN >60 Normal >=60 [facility] Comment on above: Performed By: #### L ACT #### [facility] [address] [place] [address] Dr. Jeffrey Thomas EGFR-NON AF GIBRALTARIAN >60 Normal >=60 [facility] Comment on above: Performed By: #### L ACT #### [facility] [address] [place] [address] Dr. Jeffrey Thomas Globulin (S) [Mass/Vol] 2.6 g/dL Normal [facility] Comment on above: Performed By: #### L ACT #### [facility] [address] [address] [address] Jeffrey Thomas Glucose [Mass/Vol] 111 mg/dL Critically high 74-106 [facility] Comment on above: Performed By: #### L ACT #### [facility] [address] [place] [address] Dr. Jeffrey Thomas Potassium [Moles/Vol] 4.2 mmol/L Normal 3.5-5.1 [facility] Comment on above: Performed By: #### L ACT #### [facility] [address] [address] [address] Jeffrey Thomas Protein [Mass/Vol] 5.1 g/dL Critically low 6.4-8.2 Th [facility] Comment on above: Performed By: #### L ACT #### [facility] [address] [address] [address] Jeffrey Thomas Sodium [Moles/Vol] 141 mmol/L Normal 136-145 [facility] Comment on above: Performed By: #### L ACT #### [facility] [address] [address] [address] Jeffrey Thomas Urea nitrogen [Mass/Vol] 31.0 mg/dL Critically high 7.0-18.0 [facility] Comment on above: Performed By: #### L ACT #### [facility] [address] [place] [address] Dr. Jeffrey Thomas Urea nitrogen/Creatinine [Mass ratio] 35.6 mg/mg Normal [facility] Comment on above: Performed By: #### L ACT #### [facility] [address] [address] [address] Jeffrey Thomas CBC AUTO DIFFon 12-13-2021 BASO # 0.1 103/ul Normal 0.0-0.1 [facility] Comment on above: Performed By: #### L ACT #### [facility] [address] [place] [address] Dr. Jeffrey Thomas Basophils/100 WBC (Bld) 1.3 % Normal 0.2-2.0 [facility] Comment on above: Performed By: #### L ACT #### [facility] [address] [address] [address] Jeffrey Thomas EO # 0.3 103/ul Normal 0.0-0.7 [facility] Comment on above: Performed By: #### L ACT #### [facility] [address] [address] [address] Jeffrey Thomas Eosinophils/100 WBC (Bld) 3.8 % Normal 0.9-7.0 [facility] Comment on above: Performed By: #### L ACT #### [facility] [address] [place] [address] Dr. Jeffrey Thomas Erythrocyte distribution width (RBC) [Ratio] 15.7 % Critically high 11.0-15.0 [facility] Comment on above: Performed By: #### L ACT #### [facility] [address] [place] [address] Dr. Jeffrey Thomas Hematocrit (Bld) [Volume fraction] 35.7 % Critically low 36.0-48.0 [facility] Comment on above: Performed By: #### L ACT #### [facility] [address] [place] [address] Dr. Jeffrey Thomas Hemoglobin (Bld) [Mass/Vol] 11.5 g/dL Critically low 12.0-16.0 [facility] Comment on above: Performed By: #### L ACT #### [facility] [address] [place] [address] Dr. Jeffrey Thomas IG # 0.04 10e3/ul Critically high 0.00-0.03 [facility] Comment on above: Performed By: #### L ACT #### [facility] [address] [place] [address] Dr. Jeffrey Thomas IG % 0.6 % Critically high 0.0-0.5 [facility] Comment on above: Performed By: #### L ACT #### [facility] [address] [place] [address] Dr. Jeffrey Thomas LYMPH # 2.0 103/ul Normal 1.2-3.8 [facility] Comment on above: Performed By: #### L ACT #### [facility] [address] [place] [address] Dr. Jeffrey Thomas Lymphocytes/100 WBC (Bld) 28.8 % Normal 20.5-60.0 [facility] Comment on above: Performed By: #### L ACT #### [facility] [address] [place] [address] Dr. Jeffrey Thomas MANUAL DIFF REQ NO Normal [facility] Comment on above: Performed By: #### L ACT #### [facility] [address] [address] [address] Jeffrey Thomas MCH (RBC) [Entitic mass] 31.6 pg Normal 26.7-34.0 [facility] Comment on above: Performed By: #### L ACT #### [facility] [address] [address] [address] Jeffrey Thomas MCHC (RBC) [Mass/Vol] 32.2 g/dL Normal 29.9-35.2 [facility] Comment on above: Performed By: #### L ACT #### [facility] [address] [place] [address] Dr. Jeffrey Thomas MCV (RBC) [Entitic vol] 98.1 fL Normal 81.0-99.0 [facility] Comment on above: Performed By: #### L ACT #### [facility] [address] [place] [address] Dr. Jeffrey Thomas MONO # 0.6 103/ul Normal 0.3-0.8 [facility] Comment on above: Performed By: #### L ACT #### [facility] [address] [place] [address] Dr. Jeffrey Thomas Monocytes/100 WBC (Bld) 8.5 % Normal 1.7-12.0 [facility] Comment on above: Performed By: #### L ACT #### [facility] [address] [place] [address] Dr. Jeffrey Thomas NEUT # 3.9 103/ul Normal 1.4-6.5 [facility] Comment on above: Performed By: #### L ACT #### [facility] [address] [place] [address] Dr. Jeffrey Thomas Neutrophils/100 WBC (Bld) 57.0 % Normal 43.0-75.0 [facility] Comment on above: Performed By: #### L ACT #### [facility] [address] [place] [address] Dr. Jeffrey Thomas Platelet mean volume (Bld) [Entitic vol] 11.5 fL Normal 9.5-13.5 [facility] Comment on above: Performed By: #### L ACT #### [facility] [address] [address] [address] Jeffrey Thomas PLT 199 103/ul Normal 150-450 [facility] Comment on above: Performed By: #### L ACT #### [facility] [address] [address] [address] Jeffrey Thomas RBC 3.64 106/ul Critically low 4.20-5.40 [facility] Comment on above: Performed By: #### L ACT #### [facility] [address] [address] [address] Jeffrey Thomas WBC 6.9 103/ul Normal 4.0-11.0 [facility] Comment on above: Performed By: #### L ACT #### [facility] [address] [place] [address] Dr. Jeffrey Thomas POINT OF CARE GLUCOSEon 12-01 Glucose [Mass/Vol] 85 mg/dL Normal 74-106 [facility] Comment on above: Performed By: #### C MP #### [facility] [address] [place] [address] Dr. Jeffrey Thomas PROF 14(COMP METB)on 022 Albumin [Mass/Vol] 2.7 g/dL Critically low 3.4-5.0 [facility] Comment on above: Performed By: #### A MM #### [facility] [address] [place] [address] Dr. Jeffrey Thomas Albumin/Globulin [Mass ratio] 1.0 {ratio} Normal [facility] Comment on above: Performed By: #### A MM #### [facility] [address] [place] [address] Dr. Jeffrey Thomas ALP [Catalytic activity/Vol] 95 U/L Normal 46-116 [facility] Comment on above: Performed By: #### A MM #### [facility] [address] [place] [address] Dr. Jeffrey Thomas ALT [Catalytic activity/Vol] 11 U/L Critically low 14-59 [facility] Comment on above: Performed By: #### A MM #### [facility] [address] [address] [address] Jeffrey Thomas Anion gap [Moles/Vol] 10.8 mmol/L Normal [facility] Comment on above: Performed By: #### A MM #### [facility] [address] [address] [address] Jeffrey Thomas AST [Catalytic activity/Vol] 14 U/L Critically low 15-37 [facility] Comment on above: Performed By: #### A MM #### [facility] [address] [address] [address] Jeffrey Thomas Bilirubin [Mass/Vol] 0.2 mg/dL Normal 0.2-1.0 [facility] Comment on above: Performed By: #### A MM #### [facility] [address] [place] [address] Dr. Jeffrey Thomas Calcium [Mass/Vol] 8.3 mg/dL Critically low 8.5-10.1 [facility] Comment on above: Performed By: #### A MM #### [facility] [address] [address] [address] Jeffrey Thomas Chloride [Moles/Vol] 113 mmol/L Critically high 98-107 [facility] Comment on above: Performed By: #### A MM #### [facility] [address] [place] [address] Dr. Jeffrey Thomas CO2 [Moles/Vol] 22.1 mmol/L Normal 21.0-32.0 [facility] Comment on above: Performed By: #### A MM #### [facility] [address] [address] [address] Jeffrey Thomas Creatinine [Mass/Vol] 0.98 mg/dL Normal 0.55-1.02 [facility] Comment on above: Performed By: #### A MM #### [facility] [address] [place] [address] Dr. Jeffrey Thomas EGFR-AF GIBRALTARIAN >60 Normal >=60 [facility] Comment on above: Performed By: #### A MM #### [facility] [address] [address] [address] Jeffrey Thomas EGFR-NON AF GIBRALTARIAN 57 mL/min/1.73m2 Critically low >=60 [facility] Comment on above: Performed By: #### A MM #### [facility] [address] [address] [address] Jeffrey Thomas Globulin (S) [Mass/Vol] 2.6 g/dL Normal [facility] Comment on above: Performed By: #### A MM #### [facility] [address] [address] [address] Jeffrey Thomas Glucose [Mass/Vol] 102 mg/dL Normal 74-106 [facility] Comment on above: Performed By: #### A MM #### [facility] [address] [address] [address] Jeffrey Thomas Potassium [Moles/Vol] 3.9 mmol/L Normal 3.5-5.1 [facility] Comment on above: Performed By: #### A MM #### [facility] [address] [address] [address] Jeffrey Thomas Protein [Mass/Vol] 5.3 g/dL Critically low 6.4-8.2 [facility] Comment on above: Performed By: #### A MM #### [facility] [address] [place] [address] Dr. Jeffrey Thomas Sodium [Moles/Vol] 142 mmol/L Normal 136-145 [facility] Comment on above: Performed By: #### A MM #### [facility] [address] [address] [address] Jeffrey Thomas Urea nitrogen [Mass/Vol] 26.0 mg/dL Critically high 7.0-18.0 [facility] Comment on above: Performed By: #### A MM #### [facility] [address] [address] [address] Jeffrey Thomas Urea nitrogen/Creatinine [Mass ratio] 26.5 mg/mg Normal [facility] Comment on above: Performed By: #### A MM #### [facility] [address] [address] [address] Jeffrey Thomas T3, TOTAL (TRIIODOTHYRONINE) on 12-13-2021 T3, TOTAL 72 ng/dL Normal 71-180 [facility] Comment on above: Performed By: #### C MP #### [facility] [address] [place] [address] Dr. Jeffrey Thomas T4 LABCORPon 12-13-2021 T4 [Mass/Vol] 5.2 ug/dL Normal 4.5-12.0 [facility] Comment on above: Performed By: #### T 4LC #### [facility] [address] [place] [address] Dr. Jeffrey Thomas AMMONIAon 12-12-2021 Ammonia (P) [Moles/Vol] 10 umol/L Critically low 11-32 [facility] Comment on above: Performed By: #### A MM #### [facility] [address] [place] [address] Dr. Jeffrey Thomas CBC AUTO DIFFon 12-12-2021 BASO # 0.1 103/ul Normal 0.0-0.1 [facility] Comment on above: Performed By: #### T 4LC #### [facility] [address] [place] [address] Dr. Jeffrey Thomas Basophils/100 WBC (Bld) 1.4 % Normal 0.2-2.0 [facility] Comment on above: Performed By: #### T 4LC #### [facility] [address] [place] [address] Dr. Jeffrey Thomas EO # 0.2 103/ul Normal 0.0-0.7 [facility] Comment on above: Performed By: #### T 4LC #### [facility] [address] [place] [address] Dr. Jeffrey Thomas Eosinophils/100 WBC (Bld) 2.6 % Normal 0.9-7.0 [facility] Comment on above: Performed By: #### T 4LC #### [facility] [address] [place] [address] Dr. Jeffrey Thomas Erythrocyte distribution width (RBC) [Ratio] 15.7 % Critically high 11.0-15.0 [facility] Comment on above: Performed By: #### T 4LC #### [facility] [address] [place] [address] Dr. Jeffrey Thomas Hematocrit (Bld) [Volume fraction] 38.4 % Normal 36.0-48.0 [facility] Comment on above: Performed By: #### T 4LC #### [facility] [address] [place] [address] Dr. Jeffrey Thomas Hemoglobin (Bld) [Mass/Vol] 12.2 g/dL Normal 12.0-16.0 [facility] Comment on above: Performed By: #### T 4LC #### [facility] [address] [place] [address] Dr. Jeffrey Thomas IG # 0.04 10e3/ul Critically high 0.00-0.03 [facility] Comment on above: Performed By: #### T 4LC #### [facility] [address] [place] [address] Dr. Jeffrey Thomas IG % 0.5 % Normal 0.0-0.5 [facility] Comment on above: Performed By: #### T 4LC #### [facility] [address] [place] [address] Dr. Jeffrey Thomas LYMPH # 2.2 103/ul Normal 1.2-3.8 [facility] Comment on above: Performed By: #### T 4LC #### [facility] [address] [place] [address] Dr. Jeffrey Thomas Lymphocytes/100 WBC (Bld) 28.0 % Normal 20.5-60.0 [facility] Comment on above: Performed By: #### T 4LC #### [facility] [address] [place] [address] Dr. Jeffrey Thomas MANUAL DIFF REQ NO Normal [facility] Comment on above: Performed By: #### T 4LC #### [facility] [address] [place] [address] Dr. Jeffrey Thomas MCH (RBC) [Entitic mass] 30.9 pg Normal 26.7-34.0 [facility] Comment on above: Performed By: #### T 4LC #### [facility] [address] [address] [address] Jeffrey Thomas MCHC (RBC) [Mass/Vol] 31.8 g/dL Normal 29.9-35.2 [facility] Comment on above: Performed By: #### T 4LC #### [facility] [address] [place] [address] Dr. Jeffrey Thomas MCV (RBC) [Entitic vol] 97.2 fL Normal 81.0-99.0 [facility] Comment on above: Performed By: #### T 4LC #### [facility] [address] [place] [address] Dr. Jeffrey Thomas MONO # 0.6 103/ul Normal 0.3-0.8 [facility] Comment on above: Performed By: #### T 4LC #### [facility] [address] [place] [address] Dr. Jeffrey Thomas Monocytes/100 WBC (Bld) 7.9 % Normal 1.7-12.0 [facility] Comment on above: Performed By: #### T 4LC #### [facility] [address] [place] [address] Dr. Jeffrey Thomas NEUT # 4.7 103/ul Normal 1.4-6.5 [facility] Comment on above: Performed By: #### T 4LC #### [facility] [address] [place] [address] Dr. Jeffrey Thomas Neutrophils/100 WBC (Bld) 59.6 % Normal 43.0-75.0 [facility] Comment on above: Performed By: #### T 4LC #### [facility] [address] [place] [address] Dr. Jeffrey Thomas Platelet mean volume (Bld) [Entitic vol] 11.7 fL Normal 9.5-13.5 [facility] Comment on above: Performed By: #### T 4LC #### [facility] [address] [place] [address] Dr. Jeffrey Thomas PLT 256 103/ul Normal 150-450 [facility] Comment on above: Performed By: #### T 4LC #### [facility] [address] [address] [address] Jeffrey Thomas RBC 3.95 106/ul Critically low 4.20-5.40 [facility] Comment on above: Performed By: #### T 4LC #### [facility] [address] [address] [address] Jeffrey Thomas WBC 7.9 103/ul Normal 4.0-11.0 [facility] Comment on above: Performed By: #### T 4LC #### [facility] [address] [address] [address] Jeffrey Thomas BASO # 0.1 103/ul Normal 0.0-0.1 [facility] Comment on above: Performed By: #### C MP #### [facility] [address] [place] [address] Dr. Jeffrey Thomas Basophils/100 WBC (Bld) 1.4 % Normal 0.2-2.0 [facility] Comment on above: Performed By: #### C MP #### [facility] [address] [address] [address] Jeffrey Thomas EO # 0.2 103/ul Normal 0.0-0.7 [facility] Comment on above: Performed By: #### C MP #### [facility] [address] [address] [address] Jeffrey Thomas Eosinophils/100 WBC (Bld) 2.9 % Normal 0.9-7.0 [facility] Comment on above: Performed By: #### C MP #### [facility] [address] [place] [address] Dr. Jeffrey Thomas Erythrocyte distribution width (RBC) [Ratio] 15.7 % Critically high 11.0-15.0 [facility] Comment on above: Performed By: #### C MP #### [facility] [address] [place] [address] Dr. Jeffrey Thomas Hematocrit (Bld) [Volume fraction] 40.7 % Normal 36.0-48.0 [facility] Comment on above: Performed By: #### C MP #### [facility] [address] [address] [address] Jeffrey Thomas Hemoglobin (Bld) [Mass/Vol] 12.9 g/dL Normal 12.0-16.0 [facility] Comment on above: Performed By: #### C MP #### [facility] [address] [place] [address] Dr. Jeffrey Thomas IG # 0.02 10e3/ul Normal 0.00-0.03 [facility] Comment on above: Performed By: #### C MP #### [facility] [address] [place] [address] Dr. Jeffrey Thomas IG % 0.3 % Normal 0.0-0.5 [facility] Comment on above: Performed By: #### C MP #### [facility] [address] [place] [address] Dr. Jeffrey Thomas LYMPH # 1.7 103/ul Normal 1.2-3.8 [facility] Comment on above: Performed By: #### C MP #### [facility] [address] [place] [address] Dr. Jeffrey Thomas Lymphocytes/100 WBC (Bld) 28.4 % Normal 20.5-60.0 [facility] Comment on above: Performed By: #### C MP #### [facility] [address] [place] [address] Dr. Jeffrey Thomas MANUAL DIFF REQ NO Normal [facility] Comment on above: Performed By: #### C MP #### [facility] [address] [place] [address] Dr. Jeffrey Thomas MCH (RBC) [Entitic mass] 30.7 pg Normal 26.7-34.0 [facility] Comment on above: Performed By: #### C MP #### [facility] [address] [place] [address] Dr. Jeffrey Thomas MCHC (RBC) [Mass/Vol] 31.7 g/dL Normal 29.9-35.2 [facility] Comment on above: Performed By: #### C MP #### [facility] [address] [address] [address] Jeffrey Thomas MCV (RBC) [Entitic vol] 96.9 fL Normal 81.0-99.0 [facility] Comment on above: Performed By: #### C MP #### [facility] [address] [address] [address] Jeffrey Thomas MONO # 0.5 103/ul Normal 0.3-0.8 [facility] Comment on above: Performed By: #### C MP #### [facility] [address] [address] [address] Jeffrey Thomas Monocytes/100 WBC (Bld) 8.3 % Normal 1.7-12.0 [facility] Comment on above: Performed By: #### C MP #### [facility] [address] [place] [address] Dr. Jeffrey Thomas NEUT # 3.5 103/ul Normal 1.4-6.5 [facility] Comment on above: Performed By: #### C MP #### [facility] [address] [place] [address] Dr. Jeffrey Thomas Neutrophils/100 WBC (Bld) 58.7 % Normal 43.0-75.0 [facility] Comment on above: Performed By: #### C MP #### [facility] [address] [place] [address] Dr. Jeffrey Thomas Platelet mean volume (Bld) [Entitic vol] 11.5 fL Normal 9.5-13.5 [facility] Comment on above: Performed By: #### C MP #### [facility] [address] [place] [address] Dr. Jeffrey Thomas PLT 241 103/ul Normal 150-450 [facility] Comment on above: Performed By: #### C MP #### [facility] [address] [place] [address] Dr. Jeffrey Thomas RBC 4.20 106/ul Normal 4.20-5.40 [facility] Comment on above: Performed By: #### C MP #### [facility] [address] [place] [address] Dr. Jeffrey Thomas WBC 5.9 103/ul Normal 4.0-11.0 [facility] Comment on above: Performed By: #### C MP #### [facility] [address] [address] [address] Jeffrey Thomas BASO # 0.1 103/ul Normal 0.0-0.1 [facility] Comment on above: Performed By: #### A MM #### [facility] [address] [address] [address] Jeffrey Thomas Basophils/100 WBC (Bld) 1.7 % Normal 0.2-2.0 [facility] Comment on above: Performed By: #### A MM #### [facility] [address] [address] [address] Jeffrey Thomas EO # 0.1 103/ul Normal 0.0-0.7 [facility] Comment on above: Performed By: #### A MM #### [facility] [address] [address] [address] Jeffrey Thomas Eosinophils/100 WBC (Bld) 1.7 % Normal 0.9-7.0 [facility] Comment on above: Performed By: #### A MM #### [facility] [address] [address] [address] Jeffrey Thomas Erythrocyte distribution width (RBC) [Ratio] 15.6 % Critically high 11.0-15.0 [facility] Comment on above: Performed By: #### A MM #### [facility] [address] [address] [address] Jeffrey Thomas Hematocrit (Bld) [Volume fraction] 43.4 % Normal 36.0-48.0 [facility] Comment on above: Performed By: #### A MM #### [facility] [address] [address] [address] Jeffrey Thomas Hemoglobin (Bld) [Mass/Vol] 14.2 g/dL Normal 12.0-16.0 [facility] Comment on above: Performed By: #### A MM #### [facility] [address] [address] [address] Jeffrey hTomas IG # 0.04 10e3/ul Critically high 0.00-0.03 [facility] Comment on above: Performed By: #### A MM #### [facility] [address] [place] [address] Dr. Jeffrey Thomas IG % 0.6 % Critically high 0.0-0.5 [facility] Comment on above: Performed By: #### A MM #### [facility] [address] [place] [address] Dr. Jeffrey Thomas LYMPH # 2.2 103/ul Normal 1.2-3.8 [facility] Comment on above: Performed By: #### A MM #### [facility] [address] [place] [address] Dr. Jeffrey Thomas Lymphocytes/100 WBC (Bld) 32.7 % Normal 20.5-60.0 [facility] Comment on above: Performed By: #### A MM #### [facility] [address] [place] [address] Dr. Jeffrey Thomas MANUAL DIFF REQ NO Normal [facility] Comment on above: Performed By: #### A MM #### [facility] [address] [place] [address] Dr. Jeffrey Thomas MCH (RBC) [Entitic mass] 31.3 pg Normal 26.7-34.0 [facility] Comment on above: Performed By: #### A MM #### [facility] [address] [place] [address] Dr. Jeffrey Thomas MCHC (RBC) [Mass/Vol] 32.7 g/dL Normal 29.9-35.2 [facility] Comment on above: Performed By: #### A MM #### [facility] [address] [place] [address] Dr. Jeffrey Thomas MCV (RBC) [Entitic vol] 95.8 fL Normal 81.0-99.0 [facility] Comment on above: Performed By: #### A MM #### [facility] [address] [place] [address] Dr. Jeffrey Thomas MONO # 0.7 103/ul Normal 0.3-0.8 [facility] Comment on above: Performed By: #### A MM #### [facility] [address] [place] [address] Dr. Jeffrey Thomas Monocytes/100 WBC (Bld) 9.9 % Normal 1.7-12.0 [facility] Comment on above: Performed By: #### A MM #### [facility] [address] [place] [address] Dr. Jeffrey Thomas NEUT # 3.5 103/ul Normal 1.4-6.5 [facility] Comment on above: Performed By: #### A MM #### [facility] [address] [place] [address] Dr. Jeffrey Thomas Neutrophils/100 WBC (Bld) 53.4 % Normal 43.0-75.0 [facility] Comment on above: Performed By: #### A MM #### [facility] [address] [place] [address] Dr. Jeffrey Thomas Platelet mean volume (Bld) [Entitic vol] 12.1 fL Normal 9.5-13.5 [facility] Comment on above: Performed By: #### A MM #### [facility] [address] [place] [address] Dr. Jeffrey Thomas PLT 307 103/ul Normal 150-450 [facility] Comment on above: Performed By: #### A MM #### [facility] [address] [place] [address] Dr. Jeffrey Thomas RBC 4.53 106/ul Normal 4.20-5.40 [facility] Comment on above: Performed By: #### A MM #### [facility] [address] [place] [address] Dr. Jeffrey Thomas WBC 6.6 103/ul Normal 4.0-11.0 [facility] Comment on above: Performed By: #### A MM #### [facility] [address] [place] [address] Dr. Jeffrey Thomas [facility]01 SARS-CoV-2 (COVID-19) RNA REBECCA+probe Ql (Unsp spec) Not detected Normal NOT DETECTED [facility] Comment on above: Result Comment: When diagnostic [...] for this test is supported by the [employer] of Health and Human Service's declaration that [...] used). Performed By: #### C VDTB #### [facility] [address] [place] [address] Dr. Jeffrey Thomas DRUG SCREEN RAPID (URINE)on 12-12-2021 AMP Negative Normal NEGATIVE [facility] Comment on above: Performed By: #### T 4LC #### [facility] [address] [place] [address] Dr. Jeffrey Thomas BAR Negative Normal NEGATIVE [facility] Comment on above: Performed By: #### T 4LC #### [facility] [address] [place] [address] Dr. Jeffrey Thomas BUP Negative Normal NEGATIVE [facility] Comment on above: Performed By: #### T 4LC #### [facility] [address] [place] [address] Dr. Jeffrey Thomas BZO Positive Abnormal NEGATIVE [facility] Comment on above: Performed By: #### T 4LC #### [facility] [address] [place] [address] Dr. Jeffrey Thomas VIKASH Negative Normal NEGATIVE [facility] Comment on above: Performed By: #### T 4LC #### [facility] [address] [place] [address] Dr. Jeffrey Thomas CUT-OFFS SEE BELOW Normal [facility] Comment on above: Result Comment: AMP (Amphetamine): 500ng/mL, BAR (Barbituates): 200 ng/mL, BZO (Benzodiazepines): 150 ng/mL, BUP (Buprenorphine): 10 ng/mL, VIKASH (Cocaine): 150 ng/mL, mAMP (Methamphetamine): 500 ng/mL, MTD (Methadone): 200 ng/mL, OPI (Opiates): 100 ng/mL, OXY (Oxycodone): 100 ng/mL, PCP (Phencyclidine): 25 ng/mL, PPX (Propoxyphene): 300 ng/mL, THC (Cannabinoids): 50 ng/mL, TCA (Trycyclic Antidepressants): 300 ng/mL Performed By: #### T 4LC #### [facility] [address] [place] [address] Dr. Jeffrey Thomas DRUG CUT HEADER DRUG CLASS TEST SYSTEM CUT-OFF CONCENTRATIONS ARE FOLLOWS: Normal [facility] Comment on above: Performed By: #### T 4LC #### [facility] [address] [place] [address] Dr. Jeffrey Thomas mAMP Negative Normal NEGATIVE [facility] Comment on above: Performed By: #### T 4LC #### [facility] [address] [place] [address] Dr. Jeffrey Thomas MTD Negative Normal NEGATIVE [facility] Comment on above: Performed By: #### T 4LC #### [facility] [address] [place] [address] Dr. Jeffrey Thomas OPI Negative Normal NEGATIVE [facility] Comment on above: Performed By: #### T 4LC #### [facility] [address] [place] [address] Dr. Jeffrey Thomas OXY Negative Normal NEGATIVE [facility] Comment on above: Performed By: #### T 4LC #### [facility] [address] [place] [address] Dr. Jeffrey Thomas PCP Negative Normal NEGATIVE [facility] Comment on above: Performed By: #### T 4LC #### [facility] [address] [address] [address] Jeffrey Thomas PPX Negative Normal NEGATIVE [facility] Comment on above: Performed By: #### T 4LC #### [facility] [address] [place] [address] Dr. Jeffrey Thomas TCA Positive Abnormal NEGATIVE [facility] Comment on above: Performed By: #### T 4LC #### [facility] [address] [place] [address] Dr. Jeffrey Thomas THC Negative Normal NEGATIVE [facility] Comment on above: Performed By: #### T 4LC #### [facility] [address] [place] [address] Dr. Jeffrey Thomas AMP Negative Normal NEGATIVE [facility] Comment on above: Performed By: #### C MP #### [facility] [address] [place] [address] Dr. Jeffrey Thomas BAR Negative Normal NEGATIVE [facility] Comment on above: Performed By: #### C MP #### [facility] [address] [place] [address] Dr. Jeffrey Thomas BUP Negative Normal NEGATIVE [facility] Comment on above: Performed By: #### C MP #### [facility] [address] [place] [address] Dr. Jeffrey Thomas BZO Positive Abnormal NEGATIVE [facility] Comment on above: Performed By: #### C MP #### [facility] [address] [place] [address] Dr. Jeffrey Thomas VIKASH Negative Normal NEGATIVE [facility] Comment on above: Performed By: #### C MP #### [facility] [address] [place] [address] Dr. Jeffrey Thomas CUT-OFFS SEE BELOW Normal [facility] Comment on above: Result Comment: AMP (Amphetamine): 500ng/mL, BAR (Barbituates): 200 ng/mL, BZO (Benzodiazepines): 150 ng/mL, BUP (Buprenorphine): 10 ng/mL, VIKASH (Cocaine): 150 ng/mL, mAMP (Methamphetamine): 500 ng/mL, MTD (Methadone): 200 ng/mL, OPI (Opiates): 100 ng/mL, OXY (Oxycodone): 100 ng/mL, PCP (Phencyclidine): 25 ng/mL, PPX (Propoxyphene): 300 ng/mL, THC (Cannabinoids): 50 ng/mL, TCA (Trycyclic Antidepressants): 300 ng/mL Performed By: #### C MP #### [facility] [address] [place] [address] Dr. Jeffrey Thomas DRUG CUT HEADER DRUG CLASS TEST SYSTEM CUT-OFF CONCENTRATIONS ARE FOLLOWS: Normal [facility] Comment on above: Performed By: #### C MP #### [facility] [address] [place] [address] Dr. Jeffrey Thomas mAMP Negative Normal NEGATIVE [facility] Comment on above: Performed By: #### C MP #### [facility] [address] [place] [address] Dr. Jeffrey Thomas MTD Negative Normal NEGATIVE [facility] Comment on above: Performed By: #### C MP #### [facility] [address] [place] [address] Dr. Jeffrey Thomas OPI Negative Normal NEGATIVE [facility] Comment on above: Performed By: #### C MP #### [facility] [address] [place] [address] Dr. Jeffrey Thomas OXY Negative Normal NEGATIVE [facility] Comment on above: Performed By: #### C MP #### [facility] [address] [place] [address] Dr. Jeffrey Thomas PCP Negative Normal NEGATIVE [facility] Comment on above: Performed By: #### C MP #### [facility] [address] [place] [address] Dr. Jeffrey Thomas PPX Negative Normal NEGATIVE [facility] Comment on above: Performed By: #### C MP #### [facility] [address] [place] [address] Dr. Jeffrey Thomas TCA Positive Abnormal NEGATIVE [facility] Comment on above: Performed By: #### C MP #### [facility] [address] [place] [address] Dr. Jeffrey Thomas THC Negative Normal NEGATIVE [facility] Comment on above: Performed By: #### C MP #### [facility] [address] [place] [address] Dr. Jeffrey Thomas ER URINE PROFILEon 2 Bilirubin Ql (U) SMALL Abnormal NEGATIVE [facility] Comment on above: Performed By: #### C MP #### [facility] [address] [place] [address] Dr. Jeffrey Thomas Clarity (U) CLEAR Normal CLEAR [facility] Comment on above: Performed By: #### C MP #### [facility] [address] [place] [address] Dr. Jeffrey Thomas Color (U) YELLOW Normal YELLOW [facility] Comment on above: Performed By: #### C MP #### [facility] [address] [place] [address] Dr. Jeffrey HOFFMAN A micrscopic examination will be performed if indicated. Normal [facility] Comment on above: Performed By: #### C MP #### [facility] [address] [place] [address] Dr. Jeffrey Thomas Glucose Ql (U) Negative Normal NEGATIVE [facility] Comment on above: Performed By: #### C MP #### [facility] [address] [place] [address] Dr. Jeffrey Thomas Hemoglobin Ql (U) Negative Normal NEGATIVE [facility] Comment on above: Performed By: #### C MP #### [facility] [address] [place] [address] Dr. Jeffrey Thomas Ketones Ql (U) Negative Normal NEGATIVE [facility] Comment on above: Performed By: #### C MP #### [facility] [address] [place] [address] Dr. Jeffrey Thomas LEUKOCYTES Negative Normal NEGATIVE [facility] Comment on above: Performed By: #### C MP #### [facility] [address] [place] [address] Dr. Jeffrey Thomas Nitrite Ql (U) Negative Normal NEGATIVE [facility] Comment on above: Performed By: #### C MP #### [facility] [address] [place] [address] Dr. Jeffrey Thomas pH (U) 5.0 [pH] Normal 5-9 [facility] Comment on above: Performed By: #### C MP #### [facility] [address] [place] [address] Dr. Jeffrey Thomas SPEC GRAVITY 1.025 Normal 1.005-<=1.02 5 [facility] Comment on above: Performed By: #### C MP #### [facility] [address] [place] [address] Dr. Jeffrey Thomas UA PROTEIN Negative Normal NEGATIVE/ TRACE [facility] Comment on above: Performed By: #### C MP #### [facility] [facility] [address] [place] [address] Dr. Jeffrey Thomas UR MICRO IND NOT INDICATED Normal [facility] Comment on above: Performed By: #### C MP #### [facility] [address] [place] [address] Dr. Jeffrey Thomas Urobilinogen Qn (U) 0.2 {Bere'U}/dL Normal 0.2 - 1. 0 [facility] Comment on above: Performed By: #### C MP #### [facility] [address] [place] [address] Dr. Jeffrey Thomas PROF 14(COMP METB)on 022 Albumin [Mass/Vol] 2.9 g/dL Critically low 3.4-5.0 [facility] Comment on above: Performed By: #### C MP #### [facility] [address] [place] [address] Dr. Jeffrey Thomas Albumin/Globulin [Mass ratio] 1.0 {ratio} Normal [facility] Comment on above: Performed By: #### C MP #### [facility] [address] [place] [address] Dr. Jeffrey Thomas ALP [Catalytic activity/Vol] 116 U/L Normal 46-116 [facility] Comment on above: Performed By: #### C MP #### [facility] [address] [place] [address] Dr. Jeffrey Thomas ALT [Catalytic activity/Vol] 12 U/L Critically low 14-59 [facility] Comment on above: Performed By: #### C MP #### [facility] [address] [address] [address] Jeffrey Thomas Anion gap [Moles/Vol] 11.8 mmol/L Normal Th [facility] Comment on above: Performed By: #### C MP #### [facility] [address] [address] [address] Jeffrey Thomas AST [Catalytic activity/Vol] 12 U/L Critically low 15-37 [facility] Comment on above: Performed By: #### C MP #### [facility] [address] [address] [address] Jeffrey Thomas Bilirubin [Mass/Vol] 0.1 mg/dL Critically low 0.2-1.0 [facility] Comment on above: Performed By: #### C MP #### [facility] [address] [address] [address] Jeffrey Thomas Calcium [Mass/Vol] 8.2 mg/dL Critically low 8.5-10.1 [facility] Comment on above: Performed By: #### C MP #### [facility] [address] [address] [address] Jeffrey Thomas Chloride [Moles/Vol] 111 mmol/L Critically high 98-107 [facility] Comment on above: Performed By: #### C MP #### [facility] [address] [address] [address] Jeffrey Thomas CO2 [Moles/Vol] 20.2 mmol/L Critically low 21.0-32.0 [facility] Comment on above: Performed By: #### C MP #### [facility] [address] [address] [address] Jeffrey Thomas Creatinine [Mass/Vol] 1.26 mg/dL Critically high 0.55-1.02 [facility] Comment on above: Performed By: #### C MP #### [facility] [address] [address] [address] Jeffrey Thomas EGFR-AF GIBRALTARIAN 52 mL/min/1.73m2 Critically low >=60 [facility] Comment on above: Performed By: #### C MP #### [facility] [address] [address] [address] Jeffrey Thomas EGFR-NON AF GIBRALTARIAN 43 mL/min/1.73m2 Critically low >=60 [facility] Comment on above: Performed By: #### C MP #### [facility] [address] [address] [address] Jeffrey Thomas Globulin (S) [Mass/Vol] 3.0 g/dL Normal [facility] Comment on above: Performed By: #### C MP #### [facility] [address] [address] [address] Jeffrey Thomas Glucose [Mass/Vol] 131 mg/dL Critically high 74-106 T [facility] Comment on above: Performed By: #### C MP #### [facility] [address] [address] [address] Jeffrey Thomas Potassium [Moles/Vol] 4.0 mmol/L Normal 3.5-5.1 [facility] Comment on above: Performed By: #### C MP #### [facility] [address] [address] [address] Jeffrey Thmoas Protein [Mass/Vol] 5.9 g/dL Critically low 6.4-8.2 Th [facility] Comment on above: Performed By: #### C MP #### [facility] [address] [address] [address] Jeffrey Thomas Sodium [Moles/Vol] 139 mmol/L Normal 136-145 [facility] Comment on above: Performed By: #### C MP #### [facility] [address] [address] [address] Jeffrey Thomas Urea nitrogen [Mass/Vol] 30.0 mg/dL Critically high 7.0-18.0 [facility] Comment on above: Performed By: #### C MP #### [facility] [address] [address] [address] Jeffrey Thomas Urea nitrogen/Creatinine [Mass ratio] 23.8 mg/mg Normal [facility] Comment on above: Performed By: #### C MP #### [facility] [address] [address] [address] Jeffrey Thomas Albumin [Mass/Vol] 3.1 g/dL Critically low 3.4-5.0 [facility] Comment on above: Performed By: #### C MP #### [facility] [address] [address] [address] Jeffrey Thomas Albumin/Globulin [Mass ratio] 1.0 {ratio} Normal [facility] Comment on above: Performed By: #### C MP #### [facility] [address] [address] [address] Jeffrey Thomas ALP [Catalytic activity/Vol] 119 U/L Critically high 46-116 [facility] Comment on above: Performed By: #### C MP #### [facility] [address] [place] [address] Dr. Jeffrey Thomas ALT [Catalytic activity/Vol] 13 U/L Critically low 14-59 [facility] Comment on above: Performed By: #### C MP #### [facility] [address] [place] [address] Dr. Jeffrey Thomas Anion gap [Moles/Vol] 11.9 mmol/L Normal [facility] Comment on above: Performed By: #### C MP #### [facility] [address] [place] [address] Dr. Jeffrey Thomas AST [Catalytic activity/Vol] 15 U/L Normal 15-37 [facility] Comment on above: Performed By: #### C MP #### [facility] [address] [place] [address] Dr. Jeffrey Thomas Bilirubin [Mass/Vol] 0.3 mg/dL Normal 0.2-1.0 [facility] Comment on above: Performed By: #### C MP #### [facility] [address] [place] [address] Dr. Jeffrey Thomas Calcium [Mass/Vol] 8.5 mg/dL Normal 8.5-10.1 [facility] Comment on above: Performed By: #### C MP #### [facility] [address] [address] [address] Jeffrey Thomas Chloride [Moles/Vol] 109 mmol/L Critically high 98-107 [facility] Comment on above: Performed By: #### C MP #### [facility] [address] [address] [address] Jeffrey Thomas CO2 [Moles/Vol] 21.9 mmol/L Normal 21.0-32.0 [facility] Comment on above: Performed By: #### C MP #### [facility] [address] [address] [address] Jeffrey Thomas Creatinine [Mass/Vol] 1.18 mg/dL Critically high 0.55-1.02 [facility] Comment on above: Performed By: #### C MP #### [facility] [address] [address] [address] Jeffrey Thomas EGFR-AF GIBRALTARIAN 56 mL/min/1.73m2 Critically low >=60 [facility] Comment on above: Performed By: #### C MP #### [facility] [address] [address] [address] Jeffrey Thomas EGFR-NON AF GIBRALTARIAN 46 mL/min/1.73m2 Critically low >=60 [facility] Comment on above: Performed By: #### C MP #### [facility] [address] [address] [address] Jeffrey Thomas Globulin (S) [Mass/Vol] 3.1 g/dL Normal [facility] Comment on above: Performed By: #### C MP #### [facility] [address] [address] [address] Jeffrey Thomas Glucose [Mass/Vol] 94 mg/dL Normal 74-106 [facility] Comment on above: Performed By: #### C MP #### [facility] [address] [address] [address] Jeffrey Thomas Potassium [Moles/Vol] 3.8 mmol/L Normal 3.5-5.1 [facility] Comment on above: Performed By: #### C MP #### [facility] [address] [address] [address] Jeffrey Thomas Protein [Mass/Vol] 6.2 g/dL Critically low 6.4-8.2 Th [facility] Comment on above: Performed By: #### C MP #### [facility] [address] [address] [address] Jeffrey Thomas Sodium [Moles/Vol] 139 mmol/L Normal 136-145 [facility] Comment on above: Performed By: #### C MP #### [facility] [address] [address] [address] Jeffrey Thomas Urea nitrogen [Mass/Vol] 27.0 mg/dL Critically high 7.0-18.0 [facility] Comment on above: Performed By: #### C MP #### [facility] [address] [place] [address] Dr. Jeffrey Thomas Urea nitrogen/Creatinine [Mass ratio] 22.9 mg/mg Normal [facility] Comment on above: Performed By: #### C MP #### [facility] [address] [place] [address] Dr. Jeffrey Thomas Albumin [Mass/Vol] 3.3 g/dL Critically low 3.4-5.0 [facility] Comment on above: Performed By: #### A MM #### [facility] [address] [place] [address] Dr. Jeffrey Thomas Albumin/Globulin [Mass ratio] 1.0 {ratio} Normal [facility] Comment on above: Performed By: #### A MM #### [facility] [address] [place] [address] Dr. Jeffrey Thomas ALP [Catalytic activity/Vol] 127 U/L Critically high 46-116 [facility] Comment on above: Performed By: #### A MM #### [facility] [address] [place] [address] Dr. Jeffrey Thomas ALT [Catalytic activity/Vol] 10 U/L Critically low 14-59 [facility] Comment on above: Performed By: #### A MM #### [facility] [address] [place] [address] Dr. Jeffrey Thomas Anion gap [Moles/Vol] 12.9 mmol/L Normal Th [facility] Comment on above: Performed By: #### A MM #### [facility] [address] [address] [address] Jeffrey Thomas AST [Catalytic activity/Vol] 20 U/L Normal 15-37 [facility] Comment on above: Performed By: #### A MM #### [facility] [address] [address] [address] Jeffrey Thomas Bilirubin [Mass/Vol] 0.3 mg/dL Normal 0.2-1.0 [facility] Comment on above: Performed By: #### A MM #### [facility] [address] [address] [address] Jeffrey Thomas Calcium [Mass/Vol] 8.9 mg/dL Normal 8.5-10.1 [facility] Comment on above: Performed By: #### A MM #### [facility] [address] [address] [address] Jeffrey Thomas Chloride [Moles/Vol] 106 mmol/L Normal 98-107 [facility] Comment on above: Performed By: #### A MM #### [facility] [address] [address] [address] Jeffrey Thomas CO2 [Moles/Vol] 21.8 mmol/L Normal 21.0-32.0 [facility] Comment on above: Performed By: #### A MM #### [facility] [address] [address] [address] Jeffrey Thomas Creatinine [Mass/Vol] 1.54 mg/dL Critically high 0.55-1.02 [facility] Comment on above: Performed By: #### A MM #### [facility] [address] [address] [address] Jeffrey Thomas EGFR-AF GIBRALTARIAN 41 mL/min/1.73m2 Critically low >=60 [facility] Comment on above: Performed By: #### A MM #### [facility] [address] [address] [address] Jeffrey Thomas EGFR-NON AF GIBRALTARIAN 34 mL/min/1.73m2 Critically low >=60 [facility] Comment on above: Performed By: #### A MM #### [facility] [address] [address] [address] Jeffrey Thomas Globulin (S) [Mass/Vol] 3.4 g/dL Normal [facility] Comment on above: Performed By: #### A MM #### [facility] [address] [address] [address] Jeffrey Thomas Glucose [Mass/Vol] 139 mg/dL Critically high 74-106 [facility] Comment on above: Performed By: #### A MM #### [facility] [address] [address] [address] Jeffrey Thomas Potassium [Moles/Vol] 3.7 mmol/L Normal 3.5-5.1 [facility] Comment on above: Performed By: #### A MM #### [facility] [address] [address] [address] Jeffrey Thomas Protein [Mass/Vol] 6.7 g/dL Normal 6.4-8.2 [facility] Comment on above: Performed By: #### A MM #### [facility] [address] [address] [address] Jeffrey Thomas Sodium [Moles/Vol] 139 mmol/L Normal 136-145 [facility] Comment on above: Performed By: #### A MM #### [facility] [address] [address] [address] Jeffrey Thomas Urea nitrogen [Mass/Vol] 31.0 mg/dL Critically high 7.0-18.0 [facility] Comment on above: Performed By: #### A MM #### [facility] [address] [address] [address] Jeffrey Thomas Urea nitrogen/Creatinine [Mass ratio] 20.1 mg/mg Normal [facility] Comment on above: Performed By: #### A MM #### [facility] [address] [address] [address] Jeffrey Thomas PROTIMEon 12-12-2021 INR Coag (PPP) [Relative time] 1.13 {INR} Normal [facility] Comment on above: Performed By: #### T 4LC #### [facility] [address] [address] [address] Jeffrey Thomas INR GUIDELINES SEE BELOW Normal [facility] Comment on above: Result Comment: MERARI RED INR: 2.0 - 3.0 CONDITIONS NOT LISTED BELOW 2.5 - 3.5 FOR PROSTHETIC HEART VALVE REPLACEMENT 2.5 - 3.5 RECURRENT THROMBOSIS Performed By: #### T 4LC #### [facility] [address] [address] [address] Jeffrey Thomas PT Coag (PPP) [Time] 12.1 s Critically high 9.0-11.6 [facility] Comment on above: Performed By: #### T 4LC #### [facility] [address] [place] [address] Dr. Jeffrey Thomas TSHon 12-12-2021 TSH 0.729 uIU/mL Normal 0.358-3.740 [facility] Comment on above: Performed By: #### C MP #### [facility] [address] [place] [address] Dr. Jeffrey Thomas XR CHEST 1 Von [...] GUILLE RAY Date: 2021-12-11 23:48 Normal [facility] PT Coag (PPP) [Time]on 01-08 INR Coag (PPP) [Relative time] 1.5 {INR} <=5.0 [facility] Comment on above: The recommended ther apeutic INR range for most cardiac indications is 2.0-3.0 For high intensity therapy (i.e. mechanical heart valves), the recommended range is 2.5-3.5 Interpretation and review of laboratory results Abnormal [facility] PT Coag (Bld) [Time] 18.1 s High [facility] Basic metabolic 2000 panelon 01-07-2021 Calcium [Mass/Vol] 8.8 mg/dL Normal 8.5-10.6 [facility] Chloride [Moles/Vol] 107 mmol/L Normal 98-107 [facility] CO2 [Moles/Vol] 25 mmol/L Normal 21-32 [facility] Creatinine [Mass/Vol] 1.87 mg/dL High 0.55-1.02 [facility] Glucose [Mass/Vol] 96 mg/dL Normal 70-99 [facility] Potassium [Moles/Vol] 4.5 mmol/L Normal 3.5-5.1 [facility] Sodium [Moles/Vol] 141 mmol/L Normal 136-145 [facility] Urea nitrogen (BldV) [Mass/Vol] 27 mg/dL High 7.0-18.0 [facility] Urea nitrogen/Creatinine [Mass ratio] 14 mg/mg Normal [facility] Coronavirus (COVID-19/SARS-C oV-2) RAPIDon 01-07-2021 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 N Normal [facility] First test N Normal [facility] ICU N Normal [facility] Illness or injury onset date and time Normal [facility] Patient was hospitalized because of this condition Y Normal [facility] status N Normal [facility] Resides in congregate care setting N Normal [facility] SARS-CoV-2 (COVID-19) RNA REBECCA+probe Ql (Resp) Not detected Normal NDET [facility] Comment on above: Result Comment: This test was performed via the [employer] NOW COVID 19 assay and has been authorized by FDA under an Emergency Use Authorization (EUA). The assay is validated for nasopharyngeal (STAVE BLOCK SPLITTER), nasal, and oropharyngeal (OP) direct swabs. The [...] Symptomatic as defined by CDC N Normal [facility] Gentamicin Trough Levelon Gentamicin trough [Mass/Vol] 1.0 mg/L Normal [facility] Comment on above: Result Comment: Refe rence range: 0.0 to 2.0 Unit: UG/ML PT Coag (PPP) [Time]on 01-07 INR Coag (Bld) [Relative time] 1.3 {INR} Normal [facility] Comment on above: Order Comment: [...] Coag (PPP) [Time] 15.7 s High 11.9-14.6 [facility] Comment on above: Order Comment: Preho spitalization had reported chronic use of Coumadin which was held for surgery. Tobramycin random [Moles/Vol ]on 01-07-2021 Tobramycin [Mass/Vol] SEE SEPARATE REPORT Normal 0.5-1 .5 [facility] Comment on above: Result Comment: SEE NOTES REVIEW TAB FOR RESULTS Basic metabolic 2000 panelon 01-06-2021 Calcium [Mass/Vol] 8.6 mg/dL Normal 8.5-10.6 [facility] Chloride [Moles/Vol] 107 mmol/L Normal 98-107 [facility] CO2 [Moles/Vol] 24 mmol/L Normal 21-32 [facility] Creatinine [Mass/Vol] 1.82 mg/dL High 0.55-1.02 [facility] Glucose [Mass/Vol] 87 mg/dL Normal 70-99 [facility] Potassium [Moles/Vol] 4.8 mmol/L Normal 3.5-5.1 [facility] Sodium [Moles/Vol] 140 mmol/L Normal 136-145 [facility] Urea nitrogen (BldV) [Mass/Vol] 30 mg/dL High 7.0-18.0 [facility] Urea nitrogen/Creatinine [Mass ratio] 16 mg/mg Normal [facility] Hematocriton 01-06-2021 Hematocrit (Bld) [Volume fraction] 28.9 % Low 34.0-50.0 [facility] Hemoglobinon 01-06-2021 Hemoglobin (Bld) [Mass/Vol] 9.4 g/dL Low 11.5-17.0 [facility] Histopathology Requeston Relevant diagnostic tests/laboratory data Narrative SPECIMEN DESCRIPTION 1 LEFT KNEE TISSUE RESULT SEE SEPARATE REPORT RESULT SEE NOTES REVIEW TAB FOR RESULTS ROUTINE LAB Report Date: 01/06/2021 09:09:05 Collect Date: 01/03/2021 12:44:00 Normal [facility] PT Coag (PPP) [Time]on 01-06 INR Coag (Bld) [Relative time] 1.1 {INR} Normal [facility] Comment on above: Order Comment: [...] (PPP) [Time] 14.2 s Normal 11.9-14.6 [facility] Comment on above: Order Comment: Preho spitalization had reported chronic use of Coumadin which was held for surgery. Basic metabolic 2000 panelon 01-05-2021 Calcium [Mass/Vol] 8.1 mg/dL Low 8.5-10.6 [facility] Chloride [Moles/Vol] 108 mmol/L High 98-107 [facility] CO2 [Moles/Vol] 27 mmol/L Normal 21-32 [facility] Creatinine [Mass/Vol] 2.05 mg/dL High 0.55-1.02 [facility] Glucose [Mass/Vol] 91 mg/dL Normal 70-99 [facility] Potassium [Moles/Vol] 4.7 mmol/L Normal 3.5-5.1 [facility] Sodium [Moles/Vol] 141 mmol/L Normal 136-145 [facility] Urea nitrogen (BldV) [Mass/Vol] 36 mg/dL High 7.0-18.0 [facility] Urea nitrogen/Creatinine [Mass ratio] 18 mg/mg Normal [facility] CBC W Auto Differential pane l (Bld)on 01-05-2021 Basophils (Bld) [#/Vol] 0.1 thou/mcL Normal 0.0-0.2 [facility] Basophils/100 WBC (Bld) 0.9 % Normal 0-3 [facility] Differential cell count method Nom (Bld) AUTOMATED DIFFERENTIAL Normal [facility] Eosinophils (Bld) [#/Vol] 0.2 thou/mcL Normal 0.0-0.4 [facility] Eosinophils/100 WBC (Bld) 2.2 % Normal 0-7 [facility] Erythrocyte distribution width (RBC) [Entitic vol] 16.0 % High 11.7-15.0 [facility] Hematocrit (Bld) [Volume fraction] 21.4 % Low 34.0-50.0 [facility] Hemoglobin (Bld) [Mass/Vol] 6.8 g/dL Off scale low 11.5-17.0 [facility] Comment on above: Result Comment: RESU LTS VERIFIED AND CALLED TO/READ BACK BY ALFONSO HILARIO 01.05.21 @0559.BA Lymphocytes (Bld) [#/Vol] 0.9 thou/mcL Normal 0.7-4.5 [facility] Lymphocytes/100 WBC (Bld) 12.7 % Low 14-46 [facility] MCH (RBC) [Entitic mass] 27.2 Picograms Normal 27.0-34.0 [facility] MCHC (RBC) [Mass/Vol] 31.8 g/dL Low 32.0-36.0 [facility]in [facility] MCV (RBC) [Entitic vol] 85.5 fL Normal 80-98 [facility] Monocytes (Bld) [#/Vol] 0.6 thou/mcL Normal 0.1-1.0 [facility] Monocytes/100 WBC (Bld) 8.1 % Normal 4-13 [facility] Neutrophils (Bld) [#/Vol] 5.7 thou/mcL Normal 1.5-7.8 [facility] Neutrophils/100 WBC (Bld) 76.1 % High 40-74 [facility] Platelet mean volume (Bld) [Entitic vol] 10.5 fL Normal 7.5-11.2 [facility] Platelets (Bld) [#/Vol] 141 thou/mcL Normal 140-415 [facility] RBC (Bld) [#/Vol] 2.50 x(10)6/mcL Low 3.80-5.[address] [facility] WBC (Bld) [#/Vol] 7.5 thou/mcL Normal 4.0-10.5 [facility] Gentamicin Trough Levelon Gentamicin trough [Mass/Vol] 3.9 mg/L Critically high [facility] Comment on above: Result Comment: Refe rence range: 0.0 to 2.0 Unit: UG/ML (NOTE) Critical value(s) on tests gentt called to and read-back by clementine nuñez at location [facility] by vinnie time called _01/05/21 12:20 Hematocriton 01-05-2021 Hematocrit (Bld) [Volume fraction] 27.2 % Low 34.0-50.0 [facility] Hemoglobinon 01-05-2021 Hemoglobin (Bld) [Mass/Vol] 8.8 g/dL Low 11.5-17.0 [facility] PT Coag (PPP) [Time]on 01-05 INR Coag (Bld) [Relative time] 1.1 {INR} Normal [facility] Comment on above: Order Comment: [...] Pathology studyon 01-05-2021 Case report TRINITY GODINEZ [id number] YRS F [id number] /[id number] ORDERING PHYSICIAN: CALOS SMITH [...] cut surface is rogers-pink, soft and homogeneous. Dishwasher Busser sections are submitted in block A1. (RS/1C/MS/RT) Gross examination was performed at [facility]. AJB:MEI 01/04/21 By: LICHA ZEPEDA M.D. (Electronic Signature) MICROSCOPIC: The technical component was performed at [facility], [address] [place] [address]. Microscopic examination was performed. Case resulted at [facility]. DIAGNOSIS: Left knee tissue, revision arthroplasty: -DENSE FIBROUS TISSUE WITH PATCHY CHRONIC INFLAMMATION, FOREIGN BODY GIANT CELL REACTION, AND OSSEOUS METAPLASIA. NOTE: Perivascular lymphocytic inflammation is mild and patchy. JH2:JH2:JH21 END OF REPORT [employer] Comment on above: END OF REPORT [employer] Prothrombin Timeon PT Coag (PPP) [Time] 14.5 s Normal 11.9-14.6 [facility] Comment on above: Order Comment: Preho spitalization had reported chronic use of Coumadin which was held for surgery. Rh Confirm Nom (Bld)on 01-05 ABO group Nom (Bld) A Normal [facility] Rh Nom (Bld) Positive Normal [facility] Tobramycin random [Moles/Vol ]on 01-05-2021 Tobramycin [Mass/Vol] SEE SEPARATE REPORT Normal 0.5-1 .5 [facility] Comment on above: Result Comment: SEE NOTES REVIEW TAB FOR RESULTS Vancomycin [Moles/Vol]on Vancomycin random [Mass/Vol] <3.5 Off scale low 10.0-50.0 [facility] Basic metabolic 2000 panelon 01-04-2021 Calcium [Mass/Vol] 8.5 mg/dL Normal 8.5-10.6 [facility] Chloride [Moles/Vol] 104 mmol/L Normal 98-107 [facility] t [facility] CO2 [Moles/Vol] 26 mmol/L Normal 21-32 [facility] Creatinine [Mass/Vol] 2.32 mg/dL High 0.55-1.02 [facility] Glucose [Mass/Vol] 90 mg/dL Normal 70-99 [facility] Potassium [Moles/Vol] 5.7 mmol/L Critically high 3.5-5.1 [facility] Comment on above: Result Comment: RESU LTS VERIFIED AND CALLED TO/READ BACK BY ABRAM MCQUEEN 10.5.21 @ 66. Sodium [Moles/Vol] 138 mmol/L Normal 136-145 [facility] Urea nitrogen (BldV) [Mass/Vol] 45 mg/dL High 7.0-18.0 [facility] Urea nitrogen/Creatinine [Mass ratio] 19 mg/mg Normal [facility] CBC W Auto Differential pane l (Bld)on 01-04-2021 Basophils (Bld) [#/Vol] 0.0 thou/mcL Normal 0.0-0.2 [facility] Basophils/100 WBC (Bld) 0.3 % Normal 0-3 [facility] Differential cell count method Nom (Bld) AUTOMATED DIFFERENTIAL Normal [facility] Eosinophils (Bld) [#/Vol] 0.0 thou/mcL Normal 0.0-0.4 [facility] Eosinophils/100 WBC (Bld) 0.2 % Normal 0-7 [facility] Erythrocyte distribution width (RBC) [Entitic vol] 15.5 % High 11.7-15.0 [facility] Hematocrit (Bld) [Volume fraction] 23.5 % Low 34.0-50.0 [facility] Hemoglobin (Bld) [Mass/Vol] 7.5 g/dL Low 11.5-17.0 [facility] Lymphocytes (Bld) [#/Vol] 1.0 thou/mcL Normal 0.7-4.5 [facility] Lymphocytes/100 WBC (Bld) 13.3 % Low 14-46 [facility] MCH (RBC) [Entitic mass] 27.4 Picograms Normal 27.0-34.0 [facility] MCHC (RBC) [Mass/Vol] 32.0 g/dL Normal 32.0-36.0 [facility] MCV (RBC) [Entitic vol] 85.5 fL Normal 80-98 [facility] Monocytes (Bld) [#/Vol] 0.6 thou/mcL Normal 0.1-1.0 [facility] Monocytes/100 WBC (Bld) 7.5 % Normal 4-13 [facility] Neutrophils (Bld) [#/Vol] 5.8 thou/mcL Normal 1.5-7.8 [facility] Neutrophils/100 WBC (Bld) 78.7 % High 40-74 [facility] Platelet mean volume (Bld) [Entitic vol] 10.5 fL Normal 7.5-11.2 [facility] Platelets (Bld) [#/Vol] 167 thou/mcL Normal 140-415 [facility] RBC (Bld) [#/Vol] 2.75 x(10)6/mcL Low 3.80-5.[address] [facility] WBC (Bld) [#/Vol] 7.3 thou/mcL Normal 4.0-10.5 [facility] PT Coag (PPP) [Time]on 01-04 INR Coag (Bld) [Relative time] 1.0 {INR} Normal [facility] Comment on above: Order Comment: [...] (PPP) [Time] 13.6 s Normal 11.9-14.6 [facility] Comment on above: Order Comment: Preho [...] mid left lung, likely atelectasis or scarring. [facility] thanks you for the opportunity to care for your patient. Workstation ID: [id number] - [id number] FINAL REPORT Dictated By: Garo Albarado MD 01/04/2021 11:41 Assigned Physician: Garo Albarado MD Reviewed and Electronically Signed By: Garo Albarado MD 01/04/2021 11:45 Transcribed by: [facility] 01/04/2021 11:41 Technologist: [facility] Garo Albarado MD - 01/08/2021 EXAMINATION TYPE: [...] Garo Albarado MD 01/04/2021 11:45 Transcribed by: [facility] 01/04/2021 11:41 Technologist: RAQUEL [employer] Radiology Study observation (narrative) [employer] XR CHEST 1 VIEWOrdered By: Austyn Albarado on 01-04-2021 [employer] Work Phone: XR Chest 1 Viewon 01-04-2021 [...] Garo Albarado MD 01/04/2021 11:45 Transcribed by: [facility] 01/04/2021 11:41 Technologist: RAQUEL [facility] Blood type and Indirect anti body screen panel (Bld)on 01-03-2021 Blood group antibody screen Ql Negative Normal NEG [facility] Rh Nom (Bld) Positive Normal [facility] Cell Count Body Fluidon Cell count panel (Body fld) COLOR, FLUID RED Normal [facility] Culture Aerobicon 01-03-2021 Bacteria identified Aer cx Nom (Unsp spec) [facility] Microbiology PROCEDURE: Culture Aerobic SOURCE: Tissue BODY [...] NO EPITHELIALS SEEN, NO ORGANISMS SEEN Normal [facility] Comment on above: Performed By: #### 6 34-6 ####[address] Bacteria identified Aer cx Nom (Unsp spec) [facility] Microbiology PROCEDURE: Culture Aerobic SOURCE: Tissue BODY [...] NO EPITHELIALS SEEN, NO ORGANISMS SEEN Normal [facility] Comment on above: Performed By: #### 6 34-6 ####[address] Bacteria identified Aer cx Nom (Unsp spec) [facility] Microbiology PROCEDURE: Culture Aerobic SOURCE: Tissue BODY [...] NO EPITHELIALS SEEN, NO ORGANISMS SEEN Normal [facility] Comment on above: Performed By: #### 6 34-6 ####[address] Bacteria identified Aer cx Nom (Unsp spec) [facility] Microbiology PROCEDURE: Culture Aerobic SOURCE: Tissue BODY [...] NO EPITHELIALS SEEN, NO ORGANISMS SEEN Normal [facility] Comment on above: Performed By: #### 6 34-6 ####[address] Culture Anaerobicon 01-04-20 21 Bacteria identified Anaer cx Nom (Unsp spec) [facility] Microbiology PROCEDURE: Culture Anaerobic SOURCE: Tissue BODY [...] EDT CONTRIBUTOR_SYSTEM, CO_PN CULTURE IN PROGRESS [facility] Comment on above: Performed By: #### 6 35-3 ####[address] Bacteria identified Anaer cx Nom (Unsp spec) [facility] Microbiology PROCEDURE: Culture Anaerobic SOURCE: Tissue BODY [...] 23:34 EDT CONTRIBUTOR_SYSTEM, CO_PN CULTURE IN PROGRESS [facility] Comment on above: Performed By: #### 6 35-3 ####[address] Bacteria identified Anaer cx Nom (Unsp spec) [facility] Microbiology PROCEDURE: Culture Anaerobic SOURCE: Tissue BODY [...] 23:34 EDT CONTRIBUTOR_SYSTEM, CO_PN CULTURE IN PROGRESS [facility] Comment on above: Performed By: #### 6 35-3 ####[place] [address] [place], [place] Bacteria identified Anaer cx Nom (Unsp spec) [facility] Microbiology PROCEDURE: Culture Anaerobic SOURCE: Tissue BODY [...] 23:34 EDT CONTRIBUTOR_SYSTEM, CO_PN CULTURE IN PROGRESS [facility] Comment on above: Performed By: #### 6 35-3 ####[address] Bacteria identified Anaer cx Nom (Unsp spec) [facility] Microbiology PROCEDURE: Culture Anaerobic SOURCE: Joint Fl [...] 22:43 EDT CONTRIBUTOR_SYSTEM, CO_PN CULTURE IN PROGRESS [facility] Comment on above: Performed By: #### 6 35-3 ####[address] Culture Funguson 01-03-2021 Fungus identified Cx Nom (Unsp spec) [facility] Microbiology PROCEDURE: Culture Fungus SOURCE: Tissue BODY [...] CULTURE WILL BE HELD FOR 1-4 WEEKS [facility] Comment on above: Performed By: #### 5 80-1 ####[address] Fungus identified Cx Nom (Unsp spec) [facility] Microbiology PROCEDURE: Culture Fungus SOURCE: Tissue BODY [...] CULTURE WILL BE HELD FOR 1-4 WEEKS [facility] Comment on above: Performed By: #### 5 80-1 ####[address] Fungus identified Cx Nom (Unsp spec) [facility] Microbiology PROCEDURE: Culture Fungus SOURCE: Tissue BODY [...] WILL BE HELD FOR 1-4 WEEKS Normal [facility] Comment on above: Performed By: #### 5 80-1 ####[address] Fungus identified Cx Nom (Unsp spec) [facility] Microbiology PROCEDURE: Culture Fungus SOURCE: Tissue BODY [...] WILL BE HELD FOR 1-4 WEEKS Normal [facility] Comment on above: Performed By: #### 5 80-1 ####[address] Fungus identified Cx Nom (Unsp spec) [facility] Microbiology PROCEDURE: Culture Fungus SOURCE: Joint Fl [...] WILL BE HELD FOR 1-4 WEEKS Normal [facility] Comment on above: Performed By: #### 5 80-1 ####[place] [address] [place], [place] Hematocriton 01-03-2021 Hematocrit (Bld) [Volume fraction] 31.6 % Low 34.0-50.0 [facility] Hemoglobinon 01-03-2021 Hemoglobin (Bld) [Mass/Vol] 10.4 g/dL Low 11.5-17.0 [facility] OR Nursingon 01-03-2021 OR Nursing Normal [facility] PACU I Nursingon 01-03-2021 PACU I Nursing CA NA PACU I Nursing Record Summary Primary Physician: Calos Smith Jr, MD Finalized Date/Time: 01/03/21 15:55:58 Pt. Name: TRINITY GODINEZ/Sex: 1955 Female Med Rec #: [id number] Physician: Calos Smith Jr, MD Financial #: [id number] Pt. Type: I Room/Bed: / Admit/Disch: 01/03/21 09:09:00 - Institution: [facility] OR Main PACU I Case Times Entry [...] By: Taryn Leonard RN 01/03/21 15:55 [facility] PT Coag (PPP) [Time]on 01-03 INR Coag (Bld) [Relative time] 1.1 {INR} Normal [facility] Comment on above: Result Comment: DHARMESHI [...] Austyn Viveros/Sex: 1955 Female Med Rec #: [id number] Physician: Calos Smith Jr, MD Financial #: [id number] Pt. Type: I Room/Bed: / Admit/Disch: 01/03/21 [...] Zoya Hinson RN, I 01/03/21 12:12 Normal [facility] Prothrombin Timeon PT Coag (PPP) [Time] 13.7 s Normal 11.9-14.6 Moun t [facility] Surgical Pathology Final Rep tom 01-03-2021 Pathology study TRINITY GODINEZ [id number] YRS F [id number] RM/BD 0205 01 ORDERING PHYSICIAN: CALOS SMITH [...] cut surface is rogers-pink, soft and homogeneous. Dishwasher Busser sections are submitted in block A1. (RS/1C/MS/RT) Gross examination was performed at [facility]. AJB:MEI 01/04/21 By: LICHA ZEPEDA M.D. (Electronic Signature) MICROSCOPIC: The technical component was performed at [facility], [address] [place] [address]. Microscopic examination was performed. Case resulted at [facility]. DIAGNOSIS: Left knee tissue, revision arthroplasty: -DENSE FIBROUS TISSUE WITH PATCHY CHRONIC INFLAMMATION, FOREIGN BODY GIANT CELL REACTION, AND OSSEOUS METAPLASIA. NOTE: Perivascular lymphocytic inflammation is mild and patchy. JH2:JH2:JH21 END OF REPORT END OF REPORT [facility] XR KNEE 1-2 VIEWS LTon 01-03 [...] Transcribed by: STEW 01/03/2021 15:49 Technologist: EILEEN [facility] HISTORICAL RESULTS Kerri Reyna MD - 01/08/2021 [...] Transcribed by: STEW 01/03/2021 15:49 Technologist: EILEEN [employer] Radiology Study observation (narrative) [employer] XR KNEE 1-2 VIEWS LTOrdered By: Kerri Reyna on 01-03-2021 [employer] Work Phone: XR Knee 1-2 Views LTon [...] Left knee arthroplasty revision as detailed above. [facility] thanks you for the opportunity to care for your patient. Workstation ID: [id number] - [id number] FINAL REPORT Dictated By: Kerri Reyna MD 01/03/2021 15:49 Assigned Physician: Kerri Reyna MD Reviewed and Electronically Signed By: Kerri Reyna MD 01/03/2021 15:53 Transcribed by: STEW 01/03/2021 15:49 Technologist: DT [facility] aPTT Coag (Bld) [Time]on aPTT Coag (PPP) [Time] 25.0 s Normal 23.2-34.6 [facility] Histopathology Requeston Relevant diagnostic tests/laboratory data Narrative SPECIMEN DESCRIPTION 1 LEFT KNEE RESULT SEE SEPARATE REPORT RESULT SEE NOTES REVIEW TAB FOR RESULTS ROUTINE LAB Report Date: 11/24/2020 05:51:32 Collect Date: 11/19/2020 13:56:00 Normal [facility] Basic metabolic 2000 panelon 11-22-2020 Calcium [Mass/Vol] 8.0 mg/dL Low 8.5-10.6 [facility] Chloride [Moles/Vol] 103 mmol/L Normal 98-107 Moun t [facility] CO2 [Moles/Vol] 29 mmol/L Normal 21-32 [facility] Creatinine [Mass/Vol] 1.09 mg/dL High 0.55-1.02 Arin [facility] Glucose [Mass/Vol] 93 mg/dL Normal 70-99 [facility] Potassium [Moles/Vol] 4.4 mmol/L Normal 3.5-5.1 [facility] Sodium [Moles/Vol] 138 mmol/L Normal 136-145 [facility] Urea nitrogen (BldV) [Mass/Vol] 18 mg/dL Normal 7.0-18.0 [facility] Urea nitrogen/Creatinine [Mass ratio] 17 mg/mg Normal [facility] CBC W Auto Differential pane l (Bld)on 11-22-2020 Basophils (Bld) [#/Vol] 0.0 thou/mcL Normal 0.0-0.2 [facility] Basophils/100 WBC (Bld) 0.7 % Normal 0-3 [facility] Differential cell count method Nom (Bld) AUTOMATED DIFFERENTIAL Normal [facility] Eosinophils (Bld) [#/Vol] 0.2 thou/mcL Normal 0.0-0.4 [facility] Eosinophils/100 WBC (Bld) 3.5 % Normal 0-7 [facility] Erythrocyte distribution width (RBC) [Entitic vol] 14.3 % Normal 11.7-15.0 [facility] Hematocrit (Bld) [Volume fraction] 24.8 % Low 34.0-50.0 [facility] Hemoglobin (Bld) [Mass/Vol] 8.2 g/dL Low 11.5-17.0 [facility] Lymphocytes (Bld) [#/Vol] 1.1 thou/mcL Normal 0.7-4.5 [facility] Lymphocytes/100 WBC (Bld) 17.5 % Normal 14-46 [facility] MCH (RBC) [Entitic mass] 29.9 Picograms Normal 27.0-34.0 [facility] MCHC (RBC) [Mass/Vol] 33.0 g/dL Normal 32.0-36.0 [facility] MCV (RBC) [Entitic vol] 90.7 fL Normal 80-98 [facility] Monocytes (Bld) [#/Vol] 0.8 thou/mcL Normal 0.1-1.0 [facility] Monocytes/100 WBC (Bld) 13.0 % Normal 4-13 [facility] Neutrophils (Bld) [#/Vol] 4.2 thou/mcL Normal 1.5-7.8 [facility] Neutrophils/100 WBC (Bld) 65.3 % Normal 40-74 [facility] Platelet mean volume (Bld) [Entitic vol] 10.2 fL Normal 7.5-11.2 [facility] Platelets (Bld) [#/Vol] 176 thou/mcL Normal 140-415 [facility] RBC (Bld) [#/Vol] 2.74 x(10)6/mcL Low 3.80-5.[address] 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 N Normal [facility] First test N [facility] ICU N [facility] Illness or injury onset date and time [facility] Patient was hospitalized because of this condition Y [facility] status N Normal [facility] Resides in congregate care setting N Normal [facility] SARS-CoV-2 (COVID-19) RNA REBECCA+probe Ql (Resp) Not detected Normal NDET [facility] Comment on above: Result Comment: This test was performed via the [employer] NOW COVID 19 assay and has been authorized by FDA under an Emergency Use Authorization (EUA). The assay is validated for nasopharyngeal (STAVE BLOCK SPLITTER), nasal, and oropharyngeal (OP) direct swabs. The [...] Symptomatic as defined by CDC N Normal [facility] OR Nursingon 11-22-2020 OR Nursing Normal [facility] PT Coag (PPP) [Time]on 11-22 INR Coag (Bld) [Relative time] 1.4 {INR} [facility] Comment on above: Result Comment: NOEMÍ [...] room and take this document with you. [facility] 11/22/20 14:48 [address] [place]. [address] PATIENT INFORMATION Name: TRINITY GODINEZ Address: [address] [place], [place] [address] Age: 65 Years Phone: [phone] : 1955 12:00 MRN: [facility][id number] Sex: Female Race: White Ethnicity: Not Hispan/Lat Admitted From: Clinic or [facility] Medical Service: Orthopedic Surgery Nurse Unit/Bed: (CO) 2N 0221-01 Admit Date: 11/19/2020 09:38 PCP: Levi Shine MD PHYSICIANS INVOLVED WITH CARE ------ Attending Physicians: Luis Quinn MD , Calos - Orthopaedic Surg Admitting Physician: Luis Quinn MD , Calos - Orthopaedic Surg Primary Care Physician:Levi Shine MD,[facility], - Consults: Shailesh VEGA , Grabiel Maciel - Infectious Disease Andrew VEGA , Jose E - Internal Medicine Mario VEGA , Trey E - Internal Medicine [facility], CHAUNA - Internal Medicine Angeles MD , [place] W - Internal Medicine FOLLOW-UP APPOINTMENTS: Provider: Specialty: Address: Date: Calos Smith Jr, MD Orthopaedic Surg [address] [facility] [address] [facility] [phone] (1) Three Weeks Comment: Call for an Appointment AND ANY QUESTIONS OR CONCERNS Provider: Specialty: Address: Date: Grabiel Hicks MD Infectious Disease [address] [facility] [phone] (1) Call for an Appointment Comment: 1) call soon for an appointment with Dr. Hicks in 4-5 weeks, 2) you will be on IV antibiotic until the time of your reimplantation, 3) every Sunday the nursing staff will collect blood work (CBC,SR,CRP,Creat, Vanco Trough) and fax to Dr. Hicks ([phone]), 4) call sooner for fever, chills, nausea, vomiting, diarrhea, rash, pain in your PICC arm or worsening condtion of your wound. Provider: Specialty: Address: Date: Levi Shine MD Family Practice [address] [id number] [phone]. [phone] (1) Follow-up as needed Provider: Specialty: Address: Date: [facility] Follow-up as needed Comment: [facility] [phone] ALLERGIES: NSAIDs : Reaction:Anaphylactic reaction Ancef : [...] doses are changed, or new medications (including [id number]-ceyuryc products) are added. Ask your doctor if [...] CBC,SR,Creat,CRP, Vanco Trough, fax to Dr. Hicks [phone] 3)IV ATB UNTIL reimplant 4)Call Dr. Hicks [...] Insomnia/Sleep. T (more content not included)... [facility] Prothrombin Timeon PT Coag (PPP) [Time] 16.9 s High 11.9-14.6 Moun t [facility] Vancomycin [Moles/Vol]on Vancomycin random [Mass/Vol] 28.3 ZZ Normal 10.0-50.0 [facility] Basic metabolic 2000 panelon 11-21-2020 Calcium [Mass/Vol] 8.2 mg/dL Low 8.5-10.6 [facility] Chloride [Moles/Vol] 106 mmol/L Normal 98-107 Moun t [facility] CO2 [Moles/Vol] 29 mmol/L Normal 21-32 [facility] Creatinine [Mass/Vol] 1.07 mg/dL High 0.55-1.02 Arin nt [facility] Glucose [Mass/Vol] 94 mg/dL Normal 70-99 [facility] Potassium [Moles/Vol] 4.3 mmol/L Normal 3.5-5.1 [facility] Sodium [Moles/Vol] 141 mmol/L Normal 136-145 [facility] Urea nitrogen (BldV) [Mass/Vol] 18 mg/dL Normal 7.0-18.0 [facility] Urea nitrogen/Creatinine [Mass ratio] 17 mg/mg [facility] CBC W Auto Differential pane l (Bld)on 11-21-2020 Basophils (Bld) [#/Vol] 0.0 thou/mcL Normal 0.0-0.2 [facility] Basophils/100 WBC (Bld) 0.7 % Normal 0-3 [facility] Differential cell count method Nom (Bld) AUTOMATED DIFFERENTIAL Normal [facility] Eosinophils (Bld) [#/Vol] 0.1 thou/mcL Normal 0.0-0.4 [facility] Eosinophils/100 WBC (Bld) 1.6 % Normal 0-7 [facility] Lymphocytes (Bld) [#/Vol] 1.3 thou/mcL Normal 0.7-4.5 [facility] Lymphocytes/100 WBC (Bld) 18.7 % Normal 14-46 [facility] Monocytes (Bld) [#/Vol] 0.8 thou/mcL Normal 0.1-1.0 [facility] Monocytes/100 WBC (Bld) 12.1 % Normal 4-13 [facility] Neutrophils (Bld) [#/Vol] 4.6 thou/mcL Normal 1.5-7.8 [facility] Neutrophils/100 WBC (Bld) 66.9 % Normal 40-74 [facility] Erythrocyte distribution width (RBC) [Entitic vol] 14.6 % Normal 11.7-15.0 [facility] Hematocrit (Bld) [Volume fraction] 25.9 % Low 34.0-50.0 [facility] Hemoglobin (Bld) [Mass/Vol] 8.5 g/dL Low 11.5-17.0 [facility] MCH (RBC) [Entitic mass] 29.8 Picograms Normal 27.0-34.0 [facility] MCHC (RBC) [Mass/Vol] 32.8 g/dL Normal 32.0-36.0 [facility] MCV (RBC) [Entitic vol] 90.9 fL Normal 80-98 [facility] Platelet mean volume (Bld) [Entitic vol] 9.9 fL Normal 7.5-11.2 [facility] Platelets (Bld) [#/Vol] 181 thou/mcL Normal 140-415 [facility] RBC (Bld) [#/Vol] 2.85 x(10)6/mcL Low 3.80-5.[address] [facility] WBC (Bld) [#/Vol] 7.0 thou/mcL Normal 4.0-10.5 [facility] PT Coag (PPP) [Time]on 11-21 INR Coag (Bld) [Relative time] 1.4 {INR} [facility] Comment on above: Result Comment: NOEMÍ GOMEZ THE INDUCTION PHASE OF ORAL ANTICOAGULATION, THE INR MAY NOT REFLECT THE ANTICOAGULANT STATUS OF THE PATIENT. THERAPEUTIC RANGES FOR INR'S ARE: MOST CLINICAL SITUATIONS: INR 2.0-3.0 MECHANICAL PROSTHETIC VALVES: INR 2.5-3.5 CRITICAL: INR 5.0 Prothrombin Timeon PT Coag (PPP) [Time] 17.1 s High 11.9-14.6 M[facility] Basic metabolic 2000 panelon 11-20-2020 Calcium [Mass/Vol] 8.3 mg/dL Low 8.5-10.6 [facility] Chloride [Moles/Vol] 104 mmol/L Normal 98-107 [facility] CO2 [Moles/Vol] 24 mmol/L Normal 21-32 [facility] Creatinine [Mass/Vol] 0.97 mg/dL Normal 0.55-1.02 [facility] Glucose [Mass/Vol] 126 mg/dL High 70-99 [facility] Potassium [Moles/Vol] 4.4 mmol/L Normal 3.5-5.1 [facility] Sodium [Moles/Vol] 139 mmol/L Normal 136-145 [facility] Urea nitrogen (BldV) [Mass/Vol] 18 mg/dL Normal 7.0-18.0 [facility] Urea nitrogen/Creatinine [Mass ratio] 19 mg/mg Normal [facility] CBC W Auto Differential pane l (Bld)on 11-20-2020 Basophils (Bld) [#/Vol] 0.0 thou/mcL Normal 0.0-0.2 [facility] Basophils/100 WBC (Bld) 0.2 % Normal 0-3 [facility] Differential cell count method Nom (Bld) AUTOMATED DIFFERENTIAL Normal [facility] Eosinophils (Bld) [#/Vol] 0.0 thou/mcL Normal 0.0-0.4 [facility] Eosinophils/100 WBC (Bld) 0.0 % Normal 0-7 [facility] Lymphocytes (Bld) [#/Vol] 0.9 thou/mcL Normal 0.7-4.5 [facility] Lymphocytes/100 WBC (Bld) 9.1 % Low 14-46 [facility] Monocytes (Bld) [#/Vol] 0.9 thou/mcL Normal 0.1-1.0 [facility] Monocytes/100 WBC (Bld) 9.2 % Normal 4-13 [facility] Neutrophils (Bld) [#/Vol] 7.8 thou/mcL Normal 1.5-7.8 [facility] Neutrophils/100 WBC (Bld) 81.5 % High 40-74 [facility] Erythrocyte distribution width (RBC) [Entitic vol] 14.7 % Normal 11.7-15.0 [facility] Hematocrit (Bld) [Volume fraction] 30.7 % Low 34.0-50.0 [facility] Hemoglobin (Bld) [Mass/Vol] 10.2 g/dL Low 11.5-17.0 [facility] MCH (RBC) [Entitic mass] 30.3 Picograms Normal 27.0-34.0 [facility] MCHC (RBC) [Mass/Vol] 33.3 g/dL Normal 32.0-36.0 [facility] MCV (RBC) [Entitic vol] 90.9 fL Normal 80-98 [facility] Platelet mean volume (Bld) [Entitic vol] 11.1 fL Normal 7.5-11.2 [facility] Platelets (Bld) [#/Vol] 246 thou/mcL Normal 140-415 [facility] RBC (Bld) [#/Vol] 3.38 x(10)6/mcL Low 3.80-5.[address] [facility] WBC (Bld) [#/Vol] 9.5 thou/mcL Normal 4.0-10.5 [facility] PT Coag (PPP) [Time]on 11-20 INR Coag (Bld) [Relative time] 1.0 {INR} [facility] Comment on above: Result Comment: NOEMÍ GOMEZ THE INDUCTION PHASE OF ORAL ANTICOAGULATION, THE INR MAY NOT REFLECT THE ANTICOAGULANT STATUS OF THE PATIENT. THERAPEUTIC RANGES FOR INR'S ARE: MOST CLINICAL SITUATIONS: INR 2.0-3.0 MECHANICAL PROSTHETIC VALVES: INR 2.5-3.5 CRITICAL: INR 5.0 Prothrombin Timeon PT Coag (PPP) [Time] 13.6 s Normal 11.9-14.6 [facility] Anesthesia Recordon 11-20-19 Anesthesia Record Patient: TRINITY GODINEZ MRN: [facility])-[id number] Age: 65 years Sex: Female : 1955 Associated Diagnoses: None Author: Angel Wyatt MD Procedure Time Out [place] Protocol: patient identity verified, site verified, side verified, procedure to be done verified, patient position verified. REGIONAL ANESTHESIA PROCEDURE Procedure date and begin time: Peripheral nerve block. Procedure date and end time: See nursing notes. Performed by: Angel Wyatt MD. Assisted by: no advertising sales assistant. Informed consent: signed by patient. Technique: [...] Diagnosis Preoperative Diagnosis: Postoperative Diagnosis: . [facility] Culture Aerobicon 11-19-2020 Bacteria identified Aer cx Nom (Unsp spec) [facility] Microbiology PROCEDURE: Culture Aerobic SOURCE: Tissue BODY [...] NO EPITHELIALS SEEN, NO ORGANISMS SEEN [facility] Comment on above: Performed By: #### 6 34-6 ####[address] Bacteria identified Aer cx Nom (Unsp spec) [facility] Microbiology PROCEDURE: Culture Aerobic SOURCE: Tissue BODY [...] POLYS RARE EPIS NO ORGANISMS SEEN [facility] Comment on above: Performed By: #### 6 34-6 ####[address] Bacteria identified Aer cx Nom (Unsp spec) [facility] Microbiology PROCEDURE: Culture Aerobic SOURCE: Tissue BODY [...] POLYS No Epithelials NO ORGANISMS SEEN [facility] Comment on above: Performed By: #### 6 34-6 ####[facility] [address] [place] [address] Bacteria identified Aer cx Nom (Unsp spec) [facility] Microbiology PROCEDURE: Culture Aerobic SOURCE: Tissue BODY [...] POLYS No Epithelials NO ORGANISMS SEEN [facility] Comment on above: Performed By: #### 6 34-6 ####[address] Culture Anaerobicon 11-20-19 21 Bacteria identified Anaer cx Nom (Unsp spec) [facility] Microbiology PROCEDURE: Culture Anaerobic SOURCE: Tissue BODY [...] EDT CONTRIBUTOR_SYSTEM, CO_PN CULTURE IN PROGRESS [facility] Comment on above: Performed By: #### 6 35-3 ####[address] Bacteria identified Anaer cx Nom (Unsp spec) [facility] Microbiology PROCEDURE: Culture Anaerobic SOURCE: Tissue BODY [...] 20:36 EDT CONTRIBUTOR_SYSTEM, CO_PN CULTURE IN PROGRESS [facility] Comment on above: Performed By: #### 6 35-3 ####[address] Bacteria identified Anaer cx Nom (Unsp spec) [facility] Microbiology PROCEDURE: Culture Anaerobic SOURCE: Tissue BODY [...] 20:36 EDT CONTRIBUTOR_SYSTEM, CO_PN CULTURE IN PROGRESS [facility] Comment on above: Performed By: #### 6 35-3 ####[address] Bacteria identified Anaer cx Nom (Unsp spec) [facility] Microbiology PROCEDURE: Culture Anaerobic SOURCE: Tissue BODY [...] 20:36 EDT CONTRIBUTOR_SYSTEM, CO_PN CULTURE IN PROGRESS [facility] Comment on above: Performed By: #### 6 35-3 ####[place] [id number] [place], [place] Culture Funguson 11-19-2020 Fungus identified Cx Nom (Unsp spec) [facility] Microbiology PROCEDURE: Culture Fungus SOURCE: Tissue BODY [...] CULTURE WILL BE HELD FOR 1-4 WEEKS [facility] Comment on above: Performed By: #### 5 80-1 ####[address] Fungus identified Cx Nom (Unsp spec) [facility] Microbiology PROCEDURE: Culture Fungus SOURCE: Tissue BODY [...] CULTURE WILL BE HELD FOR 1-4 WEEKS [facility] Comment on above: Performed By: #### 5 80-1 ####[address] Fungus identified Cx Nom (Unsp spec) [facility] Microbiology PROCEDURE: Culture Fungus SOURCE: Tissue BODY [...] CULTURE WILL BE HELD FOR 1-4 WEEKS [facility] Comment on above: Performed By: #### 5 80-1 ####[address] Fungus identified Cx Nom (Unsp spec) [facility] Microbiology PROCEDURE: Culture Fungus SOURCE: Tissue BODY [...] CULTURE WILL BE HELD FOR 1-4 WEEKS [facility] Comment on above: Performed By: #### 5 80-1 ####[facility] [address] [place], [place] PACU I Nursingon 11-19-2020 PACU I Nursing CO NA PACU I Nursing Record Summary Primary Physician: Calos Smith Jr, MD Finalized Date/Time: 11/19/20 18:19:26 Pt. Name: TRINITY GODINEZ/Sex: 1955 Female Med Rec #: [id number] Physician: Calos Smith Jr, MD Financial #: [id number] Pt. Type: I Room/Bed: / Admit/Disch: 11/19/20 [...] RN Role Performed RN Last Modified By: Teersita Franco RN 11/19/20 15:47:21 Finalized By: Teresita Franco RN Document Signatures Signed By: Teresita Franco RN 11/19/20 18:19 [facility] PreOp Nursingon 11-19-2020 PreOp Nursing CO NA PreOp Nursing Record Summary Primary Physician: Calos Smith Jr, MD Finalized Date/Time: 11/19/20 13:09:57 Pt. Name: TRINITY GODINEZ/Sex: 1955 Female Med Rec #: [id number] Physician: Calos Smith Jr, MD Financial #: [id number] Pt. Type: I Room/Bed: / Admit/Disch: 11/19/20 [...] By: Cortes Mcclain RN 11/19/20 13:09 [facility] Surgical Pathology Final Rep tom 11-19-2020 Pathology study TRINITY GODINEZ ([id number] [id number] F [id number] /[id number] ORDERING PHYSICIAN: CALOS SMITH [...] cut surface is rogers-pink, soft and homogeneous. Dishwasher Busser sections are submitted in block (A1). (RS/1C/MS/RT) Gross examination was performed at [facility]. AJB:SK 11/22/20 By: LICHA ZEPEDA M.D. (Electronic Signature) MICROSCOPIC: The technical component was performed at [facility], [address] [place] [address]. Microscopic examination was performed. Case resulted at [facility]. 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 NOTE: There is no significant perivascular lymphocytic inflammation. JH2:JH2:JH208 END OF REPORT END OF REPORT [facility] XR Knee 1-2 Views LTon 11-19 XR [...] is present. Anterior skin elvira are noted. [facility] thanks you for the opportunity to care for your patient. Workstation ID: [id number] FINAL REPORT Dictated By: Abdias Morejon MD 11/19/2020 16:54 Assigned Physician: Abdias Morejon MD Reviewed and Electronically Signed By: Abdias Morejon MD 11/19/2020 16:56 Transcribed by: STEW 11/19/2020 16:54 Technologist: BASIL [facility] PreOp Nursingon 11-18-2020 PreOp Nursing CO NA PreOp Nursing Record Summary Primary Physician: Calos Smith Jr, MD Finalized Date/Time: 11/18/20 15:01:45 Pt. Name: GRETCHEN TRINITYTHERESE Viveros/Sex: 1955 Female Med Rec #: [id number] Physician: Calos Smith Jr, MD Financial #: [id number] Pt. Type: I Room/Bed: / Admit/Disch: 11/17/20 [...] By: Deisi Wu RN 11/18/20 15:01 [facility] PT Coag (PPP) [Time]on 11-17 INR Coag (Bld) [Relative time] 1.1 {INR} [facility] Comment on above: Result Comment: NOEMÍ NG THE INDUCTION PHASE OF ORAL ANTICOAGULATION, THE INR MAY NOT REFLECT THE ANTICOAGULANT STATUS OF THE PATIENT. THERAPEUTIC RANGES FOR INR'S ARE: MOST CLINICAL SITUATIONS: INR 2.0-3.0 MECHANICAL PROSTHETIC VALVES: INR 2.5-3.5 CRITICAL: INR 5.0 Prothrombin Timeon PT Coag (PPP) [Time] 14.1 s Normal 11.9-14.6 [facility] aPTT Coag (Bld) [Time]on aPTT Coag (PPP) [Time] 25.4 s Normal 23.2-34.6 [facility] Basic metabolic 2000 panelon 11-15-2020 Calcium [Mass/Vol] 9.7 mg/dL Normal 8.5-10.6 [facility] Chloride [Moles/Vol] 100 mmol/L Normal 98-107 [facility] CO2 [Moles/Vol] 26 mmol/L Normal 21-32 [facility] Creatinine [Mass/Vol] 1.25 mg/dL High 0.55-1.02 [facility] Glucose [Mass/Vol] 79 mg/dL Normal 70-99 [facility] Potassium [Moles/Vol] 4.0 mmol/L Normal 3.5-5.1 [facility] Sodium [Moles/Vol] 137 mmol/L Normal 136-145 [facility] Urea nitrogen (BldV) [Mass/Vol] 31 mg/dL High 7.0-18.0 [facility] Urea nitrogen/Creatinine [Mass ratio] 25 mg/mg [facility] Blood type and Indirect anti body screen panel (Bld)on 11-15-2020 Blood group antibody screen Ql Negative Normal NEG [facility] Rh Nom (Bld) Positive [facility] C-Reactive Proteinon 021 CRP [Mass/Vol] 5.1 mg/L Normal 0.0-9.0 [facility] CBC W Auto Differential pane l (Bld)on 11-15-2020 Basophils (Bld) [#/Vol] 0.1 thou/mcL Normal 0.0-0.2 [facility] Basophils/100 WBC (Bld) 1.3 % Normal 0-3 [facility] Differential cell count method Nom (Bld) AUTOMATED DIFFERENTIAL [facility] Eosinophils (Bld) [#/Vol] 0.2 thou/mcL Normal 0.0-0.4 [facility] Eosinophils/100 WBC (Bld) 2.7 % Normal 0-7 [facility] Erythrocyte distribution width (RBC) [Entitic vol] 15.2 % High 11.7-15.0 [facility] Hematocrit (Bld) [Volume fraction] 38.1 % Normal 34.0-50.0 [facility] Hemoglobin (Bld) [Mass/Vol] 12.5 g/dL Normal 11.5-17.0 [facility] Lymphocytes (Bld) [#/Vol] 1.8 thou/mcL Normal 0.7-4.5 [facility] Lymphocytes/100 WBC (Bld) 21.9 % Normal 14-46 [facility] MCH (RBC) [Entitic mass] 30.0 Picograms Normal 27.0-34.0 [facility] MCHC (RBC) [Mass/Vol] 32.9 g/dL Normal 32.0-36.0 [facility] MCV (RBC) [Entitic vol] 91.3 fL Normal 80-98 [facility] Monocytes (Bld) [#/Vol] 0.5 thou/mcL Normal 0.1-1.0 [facility] Monocytes/100 WBC (Bld) 6.6 % Normal 4-13 [facility] Neutrophils (Bld) [#/Vol] 5.5 thou/mcL Normal 1.5-7.8 [facility] Neutrophils/100 WBC (Bld) 67.5 % Normal 40-74 [facility] Platelet mean volume (Bld) [Entitic vol] 9.9 fL Normal 7.5-11.2 [facility] Platelets (Bld) [#/Vol] 314 thou/mcL Normal 140-415 [facility] RBC (Bld) [#/Vol] 4.17 x(10)6/mcL Normal 3.80-5.[address] [facility] WBC (Bld) [#/Vol] 8.1 thou/mcL Normal 4.0-10.5 [facility] PT Coag (PPP) [Time]on 11-15 INR Coag (Bld) [Relative time] 1.5 {INR} [facility] Comment on above: Result Comment: DURI NG THE INDUCTION PHASE OF ORAL ANTICOAGULATION, THE INR MAY NOT REFLECT THE ANTICOAGULANT STATUS OF THE PATIENT. THERAPEUTIC RANGES FOR INR'S ARE: MOST CLINICAL SITUATIONS: INR 2.0-3.0 MECHANICAL PROSTHETIC VALVES: INR 2.5-3.5 CRITICAL: INR 5.0 Prothrombin Timeon PT Coag (PPP) [Time] 17.7 s High 11.9-14.6 [facility] Sedimentation Rate rbcon ESR (Bld) [Velocity] 52 mm/h High 0-30 [facility] aPTT Coag (Bld) [Time]on aPTT Coag (PPP) [Time] 27.8 s Normal 23.2-34.6 [facility] Prothrombin Time INRon 11-08 INR Coag (PPP) [Relative time] 1.4 {INR} [facility] Comment on above: Result Comment: [...] heart valves: 3 - 4.5 PERFORMED BY: [place] [address] PATHOLOGIST JAPANESE PROFESSOR JEFFREY GEIGER M.D. Performed By: #### P T #### [facility] [address] [place] [address] PT Coag (PPP) [Time] 15.5 s High 9.0-12.[address] [facility] Comment on above: Performed By: #### P T #### [facility] [address] [place] [address] Consultation Noteon 08-24-19 Consultation Note [id number]. 00CD:127 [facility] Operative Reporton Operative Report [id number] .00CD:127 [facility] Pathology Noteon 08-23-2020 Pathology Note [id number] .00CD:127 [facility] Consultation Noteon 08-20-19 Consultation Note [id number] .00CD:127 [facility] Facesheeton 08-19-2020 Facesheet [id number] .00CD:127 [facility] Vital Signs Date Time Vital Sign Value Performing Clinician Faci lity 04-22-2022 11:44-0500 Body temperature 99.1 [degF] Calos Smith MD Work Phone: [employer] 04-22-2022 11:44-0500 Diastolic blood pressure 62 mm[Hg] Calos Smith MD Work Phone: [employer] 04-22-2022 11:44-0500 Heart rate 90 /min Calos Smith MD Work Phone: [employer] 04-22-2022 11:44-0500 Respiratory rate 12 /min Calos Smith MD Work Phone: [employer] 04-22-2022 11:44-0500 SaO2% (BldA) [Mass fraction] 92 % Calos Smith MD Work Phone: [employer] 04-22-2022 11:44-0500 Systolic blood pressure 109 mm[Hg] Calos Smith MD Work Phone: [employer] 04-20-2022 12:25-0500 Body height 172.7 cm Calos Smith MD Work Phone: [employer] 04-20-2022 12:25-0500 Body mass index (BMI) [Ratio] 27.12 kg/m2 Calos Smith MD Work Phone: [employer] 04-20-2022 12:25-0500 Body weight 80.9 kg Calos Smith MD Work Phone: [employer] 01-06-2022 10:05-0400 Diastolic blood pressure 63 mm[Hg] Calos Smith MD Work Phone: [employer] 01-06-2022 10:05-0400 Heart rate 84 /min Calos Smith MD Work Phone: [employer] 01-06-2022 10:05-0400 Systolic blood pressure 111 mm[Hg] Calos Smith MD Work Phone: [employer] 01-06-2022 07:55-0400 SaO2% (BldA) [Mass fraction] 96 % Calos Smith MD Work Phone: [employer] 01-06-2022 07:52-0400 Body temperature 97 [degF] Calos Smith MD Work Phone: [employer] 01-06-2022 04:28-0400 Respiratory rate 12 /min Calos Smith MD Work Phone: [employer] 01-03-2022 07:10-0400 Body height 172.7 cm Calos Smith MD Work Phone: [employer] 01-03-2022 07:10-0400 Body mass index (BMI) [Ratio] 27.05 kg/m2 Calos Smith MD Work Phone: [employer] 01-03-2022 07:10-0400 Body weight 80.7 kg Calos Smith MD Work Phone: [employer] 01-08-2021 09:00-0400 SaO2% (BldA) [Mass fraction] 93 % Calos Smith MD Work Phone: [employer] 01-08-2021 08:12-0400 Body temperature 97.2 [degF] Calos Smith MD Work Phone: [employer] 01-08-2021 08:12-0400 Diastolic blood pressure 83 mm[Hg] Calos Smith MD Work Phone: [employer] 01-08-2021 08:12-0400 Heart rate 76 /min Calos Smith MD Work Phone: [employer] 01-08-2021 08:12-0400 Respiratory rate 12 /min Calos Smith MD Work Phone: [employer] 01-08-2021 08:12-0400 Systolic blood pressure 125 mm[Hg] Calos Smith MD Work Phone: [employer] 01-06-2021 13:37-0400 Body height 175.3 cm Calos Smith MD Work Phone: [employer] Comment on above: Pt reported 01-06-2021 13:37-0400 Body mass index (BMI) [Ratio] 30.41 kg/m2 Calos Smith MD Work Phone: [employer] 01-06-2021 13:37-0400 Body weight 93.4 kg Calos Smith MD Work Phone: [employer] Comment on above: Actual Encounters Encounter Date Encounter Type Care Provider Facility Start: 02-19-2023 ambulatory BRITTANY WOOD [facility] Start: 08-26-2022 End: 08-30-[address] LEVI SHINE . Facility:[facility] Start: 08-25-[address] LEVI SHINE . Facili ty:[facility] Start: 08-23-2022 End: 08-23-2022 ambulatory JACKY HOWELL Facility:[facility] Start: 08-22-[address] LEVI SHINE . Facili ty:[facility] Start: 08-01-2022 End: 08-02-[address] LEVI SHINE . Facility:[facility] Start: 05-22-2022 End: 05-23-[address] LEVI SHINE . Facility:[facility] Start: 05-04-2022 ambulatory BRITTANY WOOD [facility] Start: 05-03-2022 ambulatory BRITTANY EMMEL [facility] Start: 05-02-2022 ambulatory LEVI SHINE [facility] Start: 05-01-2022 ambulatory LEVI SHINE [facility] Start: 04-30-[address] [facility] Start: 04-29-[address] [facility] Start: 04-29-2022 Encounter for genera l adult medical examination without abnormal findings [facility] Start: 04-28-2022 ambulatory LEVI SHINE [facility] Start: 04-27-2022 ambulatory LEVI SHINE [facility] Start: 04-26-2022 ambulatory LEVI SHINE [facility] Start: 04-25-2022 ambulatory LEVI SHINE [facility] Start: 04-24-[address] [facility] Start: 04-23-[address] [facility] Start: 04-20-2022 End: 04-22-2022 Evaluation and management of inpatient LEVI SHINE [facility] Start: 04-20-2022 End: 04-22-2022 Evaluation and management of inpatient Calos Smith MD Work Phone: [facility] Comment on above: Other mechanical com plication of internal left knee prosthesis, initial encounter ([facility]) Start: 04-18-2022 End: 04-18-[address] LEVI SHINE . Facility:[facility] Start: 02-14-[address] LEVI SHINE . Facili ty:[facility] Start: 01-31-2022 End: 03-01-2022 ambulatory SHAIKH Raheem FOWLER Facility:[facility] Start: 01-05-2022 Encounter for preprocedural laboratory examination DR LEVI SHINE . [facility] Start: 01-03-2022 End: 01-06-2022 Evaluation and management of inpatient Calos Smith MD Work Phone: [facility] Start: 01-03-2022 End: 01-06-2022 Subsequent hospital visit by physician Calos Smith MD Work Phone: [facility] Start: 01-02-2022 End: 01-03-[address] [...] of inpatient Calos Smith MD Work Phone: [facility] Start: 05-18-2020 End: 06-17-2020 ambulatory KARAN SULLIVAN Facility:[facility] Start: 05-12-2020 End: 05-27-2020 ambulatory KARAN SULLIVAN Facility:[facility] Procedures Date Procedure Procedure Detail Performing [...] By: #### 3 [id number] #### RAMY ANGEL [facility] [address] [place] [address] Start: 01-05-2022 Prothrombin time Chong Hsieh MD [...] - Tdap) [facility] Start: 04-22-2023 Hypertension/CHF/CAD Annual BMP Blood Test Hypertension/CHF/CAD Annual BMP Blood Test [facility] Start: 01-05-2023 Hypertension/CHF/CAD Annual BMP Blood Test Hypertension/CHF/CAD Annual BMP Blood Test [facility] Start: 12-01-2021 Influenza vaccination Influenza Vacc ine (#1) [facility] Start: 08-19-2021 COVID-19 Vaccine (4 - Booster for Pfizer series) COVID-19 Vaccine (4 - Booster for Pfizer series) [facility] Start: 01-16-2021 COVID-19 Vaccine (3 - Booster for Pfizer series) COVID-19 Vaccine (3 - Booster for Pfizer series) [facility] Start: 12-20-2020 Hypertension/CHF/CAD Annual BMP Blood Test Hypertension/CHF/CAD Annual BMP Blood Test [facility] Start: 12-15-2020 Adolescent depressio n screening assessment Depression Screening [facility] Start: 12-15-2020 Depression Screening Depression Scre ening [facility] Start: 12-15-2020 Hepatitis C screening Hepatitis C Sc reening [facility] Start: 12-15-2020 HIV screening HIV Screening [facility] Start: 12-15-2020 Lipid panel Cholesterol Sc reening (Lipid Panel) [facility] Start: 12-15-2020 Medicare Annual Well ness Visit Medicare Annual Wellness Visit [facility] Start: 12-15-2020 Screening for malign ant neoplasm of breast Breast Cancer Screening [facility] Start: 12-15-2020 Screening for malign ant neoplasm of colon Colorectal Cancer Screening: Colonoscopy [facility] Start: 12-15-2020 Screening for malign ant neoplasm of lung Lung Cancer Screening (Low Dose CT) [facility] Start: 12-15-2020 Social Influencers o f Health Screening Social Influencers of Health Screening [facility] Start: 12-01-2020 Influenza vaccination Influenza Vacc ine (#1) [facility] Start: 02-01-2016 Pneumococcal Vaccine : Pediatrics (0 to 5 Years) and At-Risk Patients (6 to 64 Years) (2 - PCV) Pneumococcal Vaccine: Pediatrics (0 to 5 Years) and At-Risk Patients (6 to 64 Years) (2 - PCV) [facility] Start: 2007 Zoster Vaccines (1 of 2) Zoster Vacc ngozi (1 of 2) [facility] Start: 1978 Screening for malign ant neoplasm of cervix Cervical Cancer Screening: Pap Smear [facility] Start: 1976 DTaP,Tdap,and Td Vac cines (1 - Tdap) DTaP,Tdap,and Td Vaccines (1 - Tdap) [facility] Start: 1957 Hepatitis B Vaccines (1 of 3 - 3-dose series) Hepatitis B Vaccines (1 of 3 - 3-dose series) [facility] Bacteria identified in Tissue by Culture Culture tissue with gram stain Microbiology Routine 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, initial encounter ([facility]) 04/20/2022 2:13 PM EST [facility] Bacteria identified in Unspecified specimen by Anaerobe culture [facility] Work Phone: Bacteria identified in Unspecified specimen by Sterile body fluid culture Culture body fluid with gram stain Microbiology Routine 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, initial encounter ([facility]) 04/20/2022 2:10 PM EST [employer] End: 01-08-2021 Communication order: Respiratory Communication order: Respiratory Respiratory Care Routine Once for 1 Occurrences starting 01/08/2021 until 01/08/2021 [facility] Comment on above: Once for 1 Occurrenc es starting 01/08/2021 until 01/08/2021 Fungus identified in Skin by Culture [facility] Incentive spirometry RT Incentiv e spirometry RT Respiratory Care Routine Daily until discontinued starting 01/08/2021 [facility] Comment on above: Daily until disconti nued starting 01/08/2021 Mycobacterium sp identified in Unspecified specimen by Organism specific culture [facility] End: 01-13-2021 Prothrombin time (PT) Prothrombin time with INR Lab Routine Daily for 6 Days starting 01/08/2021 until 01/13/2021, 1 completed [employer] Work Phone: Comment on above: Daily for 6 Days sta rting 01/08/2021 until 01/13/2021, 1 completed Immunizations Immunization Date Immunization Notes Care Provider Addie booth 02-10-2021 influenza virus vacc ine, unspecified formulation Calos Smith MD Work Phone: [employer] 01-03-2020 influenza virus vacc ine, unspecified formulation Calos Smith MD Work Phone: [facility] Payers Date Payer Category Payer Medicare MEDICARE MEDICAR E RAILROAD [id number] 2015-Present [address] [address] [place] [address] Medicare [id number] 2015 Medicare MEDICARE MEDICAR E RAILROAD [id number] 2015-Present [address] [address] [place] [address] Medicare [id number] 1959 Medicare [id number] 1959 Private Health Insurance [id number] 1955 Unknown [id number] 2.16.840.1.190567.3.579.2 .647 1955 Unknown [id number] 2.16.840.1.374948.3.579.2 .647 1955 Unknown [id number] 2.16.840.1.212861.3.579.2 .593 1957 Unknown [id number] 2.16.840.1.475404.3.579.2 .593 1957 Unknown [id number] 2.16.840.1.763474.3.579.2 .593 1957 Unknown [id number] 2.16.840.1.996862.3.579.2 .593 1957 Unknown [id number] 2.16.840.1.594453.3.579.2 .593 1957 Unknown [id number] 2.16.840.1.849089.3.579.2 .593 1957 Unknown [id number] 2.16.840.1.851508.3.579.2 .593 1957 Unknown [id number] 2.16.840.1.963177.3.579.2 .593 1957 Unknown [id number] 2.16.840.1.678817.3.579.2 .593 1957 Unknown [id number] 2.16.840.1.951707.3.579.2 .593 1957 Unknown [id number] 2.16.840.1.935294.3.579.2 .593 1957 Unknown [id number] 2.16.840.1.818970.3.579.2 .593 1957 Unknown [id number] 2.16.840.1.483745.3.579.2 .593 1957 Unknown [id number] 2.16.840.1.200872.3.579.2 .114 1957 Unknown [id number] 2.16.840.1.024166.3.579.2 .114 1957 Unknown [id number] 2.16.840.1.778045.3.579.2 .114 1957 Unknown [id number] 2.16.840.1.905602.3.579.2 .114 1957 Unknown [id number] 2.16.840.1.180702.3.579.2 .114 1957 Unknown [id number] 2.16.840.1.082834.3.579.2 .114 1957 Unknown [id number] 2.16.840.1.780139.3.579.2 .114 1957 Unknown [id number] 2.16.840.1.373789.3.579.2 .114 1957 Unknown [id number] 2.16.840.1.747648.3.579.2 .1143 1957 Unknown [id number] 2.16.840.1.968072.3.579.2 .1143 1955 Unknown [id number] 2.16.840.1.047225.3.579.2 .1143 Social History Date Type Detail Facility Tobacco smoking stat [facility] Unknown if [facility] smoked [facility] Start: 1955 Sex Assigned At Not on file [facility] Start: 12-30-2021 Tobacco smoking stat [facility] Ex-smoker [facility] End: 08-31-2021 History of tobacco use Current smoker [facility] End: 08-31-2021 History of tobacco use Cigarette Smoker [facility] Start: 12-30-2021 Tobacco use and exposure Smokeless t obacco non-user [facility] Start: 01-03-2022 End: 04-20-2022 Alcohol intake Lifetime non-drinker (finding) [facility] Start: 12-24-2021 End: 04-20-2022 Exposure to SARS-CoV-2 (event) Not sure [facility] Medical Equipment Procedure Code Equipment Code Equipment Origin al Text Equipment Identifier Dates Cement Bone Biom et R 1x40 [facility] - [id number])[id number], [id number] [facility] Start: 01-03-2022 Knee Tib Brg Ant Stbl [id number] - [facility] - [id number](1 [id number](2 1)GILMER, [id number]_imp [facility] Start: 01-03-2022 Clinical [...] picking her up around 12-12:30. Delroy at [facility] updated pt to arrive around 1. NN spoke with Delroy at [facility]. They can accept the pt today. No HENS needed. Pt will need a covid test [phone] [phone] Delroy will need updated with a transport [...] Clarity 04/20/2022 Hazy Body Fluid Color 04/20/2022 [place] Body Fluid RBC 04/20/2022 25,000 Body Fluid [...] 04/20/2022 16:06 Post-op Progress Note Subjective Procedure: NC RECONSTR DISLOCATING PATELLA W EXT REALIGNMENT AND/OR MUSCLE ADVMNT/RLS [88048] (Left knee extensor mechanism realignment with lateral retinacular release) NC LATERAL RETINACULAR RELEASE OPEN [50311] Interval History: Shannon S Sharp, 66 y.o. [...] Plan for discharge to Subacute Rehab Facility ([facility] or [facility]) when cleared by PT and medically [...] or worsening End of Shift Summary: Progressing [facility]- Referral received and chart reviewed. Patient accepted by [facility]. Spoke to patient over phone and answered questions. She has been to our facility in the past. Will follow in in AM. Patient needs a rapid Covid prior to admission. Alicia Jacobo RN [phone] If [facility] can not accept the patient would like the next referral to [facility] Patient not discharging today called Dr Simpson and telephone order received to start the cleocin 300mg Q12hr for 10days as ordered for discharge Updated the patient she needs to choose another facility and she states she has gone to [facility] and would like a referral and sent. Called Admissions and they will review the referral. Spoke to [place] [facility] and they have no beds. [phone]. Have tried constantly for 15 minutes to call [facility] and no one answers. Line rings abut 10 times and then cuts off. [phone] Called Admissions at [facility] and she has the referral and will let CM know shortly if they will accept [facility] Physical Therapy Treatment PT Discharge Recommendations: halfway facility placement Distance Ambulated (ft): 30 Device: [...] of care until patient is discharged from [facility]. Objective 04/21/22 1401 General Family/Caregiver [...] PT Plan Skilled PT PT Discharge Recommendations halfway facility placement Goals/Education Encounter Problems Encounter Problems [...] Understanding Education Comments No comments found. 04/21/22 1332 Clinical Encounter Type Visited With Patient Time [...] daily for 7 days DC aspirin. Called [facility]. [facility] they have the referral and could be able to answer within an hour if they will be able to accept. Message left for Dr Simpson as patient can not take aspirin for a new anticoag order Called [facility] and spoke to the front end wheel loader operator. [phone]. Admissions is not in for another hour or two. She states they do have beds and faxed the referral to [phone] Patient would like [facility]. Referral sent and message left for Admissions [facility] [phone] but they are an IPR and since the last IPR said she did not qualify for IPR CM is not anticipating an acceptance. Discussed with the patient and she would liek a referral to [facility] Patient eating lunch. Declines at this time to finish eating. Will attempt again in pm. Patient would like the [facility] in [place], Called the [place] spoke to Alphonso [phone] She does not have beds until Maybe next week. Updated the patient she would like to try [facility] called [phone] spoke to Connie she does not have beds until at less next Sunday Patient would like IPR at [facility] Called Cori [phone] fax [phone] In admissions with referral and she does [...] opiates, and antibiotics to surgical service. Disposition: halfway facility. Subjective Patient reports pain is currently [...] Plan for discharge to Subacute Rehab Facility ([facility] or ECF) when cleared by [...] d/c to SNF when able. [facility] Physical Therapy Evaluation PT Discharge Recommendations: halfway facility placement Distance Ambulated (ft): 30 Device: [...] right Complication of internal left knee prosthesis ([facility]) 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, initial encounter ([facility]) Past Medical History: Diagnosis Date Anxiety Arthritis Chronic pain disorder COPD (chronic obstructive pulmonary disease) ([facility]) GERD (gastroesophageal reflux disease) Hypertension Pulmonary embolism ([facility]) 2019 Wears dentures Wears glasses Past Surgical [...] of Steps 5 Prior Function Level of [place] Independent with mobility and functional transfers Receives [...] 1-2 times per day PT Discharge Recommendations halfway facility placement PT - Evaluation Status Complete [...] what SNF she wants to go to [facility]. Brother will transport. CM will complete assessment tomorrow However Referral to [facility] faxed to [phone] still need P.T. Eval and will need Written Rx's on Rounds for SNF Son notified not to miner pick the prescriptions Escribed to her pharmacy. Patient has not arrived to the IP floor for CM assessment Will be seen tomorrow Pain rated at 7 but respiratory rate as low as 9 per minute. Vital signs stable. Meets criteria for discharge/transfer from PACU. documented in this encounter [facility] 04-22-2022 Hospital course Narrative Coumadin-At discharge please follow up with your prescribing provider regarding follow up/labs and appointment. Please follow surgeon's discharge instructions and prescription directions. Surgeon' discharge instructions are in patient's folder- FOLLOW SURGEON INSTRUCTION SHEETS Contact Surgeon's office with any questions/concerns [phone] [facility] THERAPIES -PT/OT [...] (see Additional Instructions)LAST DOSE /12 MEDS PER [facility] Additional Instructions: Instructions to prepare for [...] prior to your surgery. Check in at library supervisor desk [address] [place] [address]. If Outpatient, these additional instructions apply: An [...] this encounter [facility] 04-20-2022 Procedure note Denies need to void. Pad beneath pt dry. [facility] 04-20-2022 Procedure note Denies need to void. 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 PROCEDURE: Left knee arthrotomy, excision of hardware from the patella, lateral retinacular release, proximal realignment of the extensor mechanism. SURGEON: Calos Smith MD WOOD MILL SUPERVISOR: Jelani Burgos PA-C. Mr. Burgos was required [...] cleared by general medical consultants, admitted to [facility], evaluated by the anesthesia team. [...] this encounter [facility] 04-20-2022 Consult note Associated Order (s): IP [...] previous visit. [facility] 04-20-2022 Consult note Associated Order (s): IP [...] this encounter [facility] 04-20-2022 Procedure note All medications administered per Whitley Kelley SN witnessed by myself. [facility] 04-20-[address] Smith notified of patient reporting history of MRSA a couple years ago, has an allergy to Vancomycin and Ancef, currently has Clindamycin ordered. No new orders. [facility] 04-20-2022 History and physical note History and Physical Update ( H&P completed within the previous thirty days ) I personally reviewed the History and Physical, interviewed and examined the patient prior to surgery. No changes have occurred in the patient's condition since the History and Physical was completed. [facility] 04-20-2022 History and physical note History and Physical Update ( H&P completed within the previous thirty days ) I personally reviewed the History and Physical, interviewed and examined the patient prior to surgery. No changes have occurred in the patient's condition since the History and Physical was completed. 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 PROCEDURE: Left knee arthrotomy, excision of hardware from the patella, lateral retinacular release, proximal realignment of the extensor mechanism. SURGEON: Calos Smith MD WOOD MILL SUPERVISOR: Jelani Burgos PA-C. Mr. Burgos was required [...] cleared by general medical consultants, admitted to [facility], evaluated by the anesthesia team. [...] 15:47:00 LEANN/ROCIO [facility] 01-06-2022 History of Present illness Narrative All discharge criteria for discharge to home met, medically & surgically. BP u to WNL, tolerating up to bathroom w/o dizziness, lighthedeness. Report called to [phone], station 2 questions answered. Notified Metoprolol and imdur held prior to discharge. Verbalized understanding. Plasma Flow activated for transport to [place]. Per brother. Chemical ice packs for comfort promotion. Spoek with patient and her brother will be here between 9and 10am to transport to [facility]. Faxed HENS Rx' surgeon instruction sheets and AVS to [facility] at [phone]. Dischareg folder to nursing for discharge to [facility]. Rx's in folder for tramadol Oxycodone valium gabapentin restoril Surgeon instruction sheets AVS Transfer Summary Number for report to RN [phone] station 2 [facility] - PROGRESS [...] 11:45 Transcribed by: STEW 01/04/2021 11:41 Technologist: FINISH PHOTOGRAPHER STRESS TEST No results found for this [...] 3 Days Post-Op: Right total knee arthroplasty 13569 - NC ARTHROPLASTY KNEE CONDYLE&PLATEAU MED/LAT CPTS W/WO PATELLA [...] Post-Op status post Right total knee arthroplasty 99256 - NC ARTHROPLASTY KNEE CONDYLE&PLATEAU MED/LAT CPTS W/WO PATELLA [...] to discharge to an impatient unit or fci facility. [facility]) Orthopaedic Surgery Progress Note 2 Days Post-Op: Right total knee arthroplasty 46566 - NC ARTHROPLASTY KNEE CONDYLE&PLATEAU MED/LAT CPTS W/WO PATELLA [...] Post-Op status post Right total knee arthroplasty 87804 - NC ARTHROPLASTY KNEE CONDYLE&PLATEAU MED/LAT CPTS W/WO PATELLA RESURFACING . - WBAT on the operative extremity - home coumadin, continue lovenox bridge, INR yesterday 0.9 for DVT ppx - PT - Follow-up in clinic in 6 weeks - Plan for discharge to Subacute Rehab Facility ([facility] or [facility]) when cleared by PT and medically stable Spoke to the patient and she called her brother who will be her transport and he wants to leave here by 0900am. Reached out to [facility] to complete Rx's for home meds. Pt sleeping soundly and did not rouse to name of knock. Will attempt again in am. Message left for Admissions Christy at [place] cell [phone] and office [phone] [facility] and they Meat Cutter provided Admissions cell of Christy [phone] Called her and she still does not have an answer from the admissions team and D.O.N. she will call when she knows. Physical Therapy Treatment PT Discharge Recommendations: halfway facility placement, Inpatient rehab facility placement Distance [...] Subjective Pt agreeable to treatment. Requesting this MARKETING AUTOMATION SPECIALIST move her LEs out of the bed. Education and instruction provided. Requesting bathroom urgently. Mobility noted below. At end of treatment pt sitting in chair awaiting lunch. Continue to follow until pt is d/c from [facility]. Vitals/Pain Pain Assessment Pain Assessment: 0-10 Pain [...] PT Plan: Skilled PT PT Discharge Recommendations: halfway facility placement, Inpatient rehab facility placement Goals: [...] 01/06/22 Outcomes Date/Time User Outcome 01/04/22 1451 Lihca Kelley PTA Progressing Goal: Caregiver/patient will demonstrate [...] plan to SNF. Awaiting to hear from [place] for acceptance. Discussed transportation and her brother can transport. Encouraged IS as patient still needs to wean from oxygen. Message left for Admissions at [facility]. [phone] to see if they can accept. GENERAL [...] to discharge to an inpatient unit or fci facility. NN met with the pt at bedside. Pt would like a referral sent to [facility]. She will continue to review the list for choices 2 and 3 in the event [place] cannot accept. Referral sent via [employer] Fax. 01/04/22 1531 Clinical Encounter Type Visited With Patient Time Spent 20 Minutes Type of Contact Introduction SPIRITUAL CARE ASSESSMENT Spiritual Care Assessment: Pt appropriate and coping peaceful and positive calderon and family are supportive Spiritual Intervention: Active listening Discuss coping style Hospitality provided Hood given Outcome: Pt shared feelings and values expressed gratitude Plan: PC will return at pt/family request. CM received IB call from Cori with [facility]. They do not have bed availability for patient until at least next Sunday. CM will print Medicare SNF list and provide to patient for subsequent choices. Physical Therapy Treatment PT Discharge Recommendations: halfway facility placement, Inpatient rehab facility placement Distance [...] completed with mod/max assist. Mobility noted below. [place] pillow placed at right foot to assist in pt right LE positioning as pt position of comfort is with external rotation and knee slightly bent. Education provided. Continue as per PT POC until pt is d/c from [facility]. Vitals/Pain Pain Assessment Pain Assessment: 0-10 Pain [...] PT Plan: Skilled PT PT Discharge Recommendations: halfway facility placement, Inpatient rehab facility placement Goals: [...] comments found. Voice message left for Cori [phone] at [facility]. NN inquiring about the status of referral. CM phone number provided for a return call. Physical Therapy Treatment PT Discharge Recommendations: Inpatient rehab facility placement, halfway facility placement Distance Ambulated (ft): 30 Device: [...] PT Discharge Recommendations: Inpatient rehab facility placement, halfway facility placement Goals: Encounter Problems Encounter Problems [...] CONSULTANTS - PROGRESS NOTE Patient Name : Triinty Godinez Patient : 1955 Patient Diagnosis : [...] 1 Day Post-Op: Right total knee arthroplasty 71538 - NC ARTHROPLASTY KNEE CONDYLE&PLATEAU MED/LAT CPTS W/WO PATELLA [...] Post-Op status post Right total knee arthroplasty 13925 - NC ARTHROPLASTY KNEE CONDYLE&PLATEAU MED/LAT CPTS W/WO PATELLA [...] tomorrow to acquire update of needed. # [phone] PT note is in and this CM faxed the referral to the requested IPR for review Physical Therapy Physical Therapy Evaluation PT Discharge Recommendations: halfway facility placement Distance Ambulated (ft): 30 Device: [...] R knee. Pt. Plans to discharge to [facility] as lives alone. Pt. Has 5 steps charity. Rails to enter home. Continue PT tx. Per POC. Patient Active Problem List Diagnosis Pain management Unilateral primary osteoarthritis, right knee S/P TKR (total knee replacement), right Past Medical History: Diagnosis Date Anxiety Arthritis COPD (chronic obstructive pulmonary disease) ([facility]) Hypertension Pulmonary embolism ([facility]) Wears dentures Wears glasses Past Surgical History: [...] Level of Function: Prior Function Level of Sterling: Independent with mobility and functional transfers Receives [...] 1-2 times per day PT Discharge Recommendations: halfway facility placement PT - Evaluation Status: Complete [...] transitioning home alone. Patient has requested [facility]. Patient states her brother will plan to provide transportation at time of discharge. CM was able to reach the admissions dept and the facility is an IPR, no swing bed/ TCU unit at this facility. Patient with multiple co morbidities and this CM will fax the referral for review to [phone] for review. Patient was educated a SNF [...] 1531 Referral Data Referral Reason Discharge Planning [facility] Information [facility] Patient Information Accompanied by/Relationship telephone call Patient arrived from? Home Support System Extended family Referral To Financial Resources Other (Comment) (no needs identified) Community Resources Other (Comment) (no needs identified) Services Requested DME potential needs No Destination/Placement [facility] Rehab Potential Good CM made telephone call [...] this encounter [facility] 01-05-2022 Hospital course Narrative Prescriptions for discharge OXYCODONE TRAMADOL RX FOR HOME MEDS FOR CONTINUED CARE VALIUM GABAPENTIN RESTORIL -Follow surgeon's printed post op care instructions -PT/OT Eval for bed mobility, transfers, gait training, ROM, strengthening, modalities prn, venous return exercises and ADL'S -FWW for gait assit -Weight bearing as Tolerated -Please follow up with the coumadin clinic regarding Labs and lovenox bridge. [facility] JAPANESE PROFESSOR TO HELP MANAGE TO THERAPEUTIC LEVEL -Plasma [...] prior to your surgery. Check in at library supervisor desk [address] [id number]. Medication instructions per [facility] If Outpatient, these additional instructions apply: [...] this encounter [facility] 01-03-2022 Procedure note Family updated per phone. [facility] 01-03-2022 Procedure note Family updated per phone. Trinity Godinez 1955 ? Retention: Exchange Retention Policy (10 years) Expires: Sun01/01/2032 10:37 AM Retention: Exchange Retention Policy (10 years) Expires: Sun01/01/2032 10:37 AM [email or web address] EXTERNAL CAUTION: This email originated from outside the organization. Do not click links or open any attachments unless you recognize the sender and know the content is safe. If you believe this is spam, forward the message to [email or web address]. - [employer] [facility], A Member of [facility] OPERATIVE REPORT PATIENT NAME: Trinity Godinez DATE OF : 1955 [facility]#: [id number] SURGEON: Calos Smith MD, FACS DATE OF SERVICE: 01/03/2022 DATE OF SURGERY: 01/03/2022 PREOPERATIVE DIAGNOSIS: OA right knee (M17.11) POSTOPERATIVE DIAGNOSIS: OA right knee (M17.11) PROCEDURE: Primary Right Total Knee Arthroplasty (54041) Femoral Component: Heidi Biomet Vanguard Cruciate Retaining , Size: 62.5mm Tibial Component: Biomet Fixed I-Beam Stem Tibial Tray 75mm Patella Component: Biomet Series A Standard Patella , 31mm Polyethylene: Vanguard ArCom anterior stabilized 12mm Fixation: Biomet Bone Cement with 1g Vancomycin ATTENDING SURGEON: Calos Smith MD, FACS WOOD MILL SUPERVISOR: STEPHAN Diane DO INDICATIONS: Patient is a [...] awake, alert, and stable in good condition. WOOD MILL SUPERVISOR/ATTENDING PARTICIPATION: STEPHAN Diane DO assisted with proper [...] MD, FACS on 01/03/2022 10:28:45 [facility], A Member of [facility] OPERATIVE REPORT PATIENT NAME: Trinity Godinez DATE OF : 1955 [facility]#: [id number] SURGEON: Calos Smith MD, FACS DATE OF SERVICE: 01/03/2022 DATE OF SURGERY: 01/03/2022 REF [id number] LOT [id number] Vanguard Knee System 62.5 MM Uncoated knee femur prosthesis, metallic Use By 2031-11-13 () [id number] () [id number] (10) [id number] REF [id number] LOT [id number] Biomet Knee System 75 mm Uncoated knee tibia prosthesis, metallic Use By 2031-10-11 () [id number] () 115742 (10) [id number] REF [id number] LOT [id number] Vanguard Knee System 31 mm 8 mm Polyethylene patella prosthesis Use By 2026-10-10 () [id number] () 283434 (34) [id number] REF [id number] LOT [id number] Vanguard Knee System 12 MM 75 MM Tibial insert Use By 2026-12-22 (68) [id number] (40) [id number] (22) [id number] documented in this encounter [facility] 01-03-2022 Procedure note Trinity Godinez 1955 ? Retention: Exchange Retention Policy (10 years) Expires: Sun01/01/2032 10:37 AM Retention: Exchange Retention Policy (10 years) Expires: Sun01/01/2032 10:37 AM [email or web address] EXTERNAL CAUTION: This email originated from outside the organization. Do not click links or open any attachments unless you recognize the sender and know the content is safe. If you believe this is spam, forward the message to [email or web address]. - [facility] [facility], A Member of [facility] OPERATIVE REPORT PATIENT NAME: Trinity Godinez DATE OF : 1955 CSN#: [id number] SURGEON: Calos Smith MD, FACS DATE OF SERVICE: 01/03/2022 DATE OF SURGERY: 01/03/2022 PREOPERATIVE DIAGNOSIS: OA right knee (M17.11) POSTOPERATIVE DIAGNOSIS: OA right knee (M17.11) PROCEDURE: Primary Right Total Knee Arthroplasty (16752) Femoral Component: Heidi Biomet Vanguard Cruciate Retaining , Size: 62.5mm Tibial Component: Biomet Fixed I-Beam Stem Tibial Tray 75mm Patella Component: Biomet Series A Standard Patella , 31mm Polyethylene: Vanguard ArCom anterior stabilized 12mm Fixation: Biomet Bone Cement with 1g Vancomycin ATTENDING SURGEON: Calos Smith MD, FACS WOOD MILL SUPERVISOR: STEPHAN Diane DO INDICATIONS: Patient is a [...] awake, alert, and stable in good condition. WOOD MILL SUPERVISOR/ATTENDING PARTICIPATION: STEPHAN Diane DO assisted with proper [...] MD, FACS on 01/03/2022 10:28:45 [facility], A Member of [facility] OPERATIVE REPORT PATIENT NAME: Trinity Godinez DATE OF : 1955 [facility]#: [id number] SURGEON: Calos Smith MD, FACS DATE OF SERVICE: 01/03/2022 DATE OF SURGERY: 01/03/2022 REF [id number] LOT [id number] Vanguard Knee System 62.5 MM Uncoated knee femur prosthesis, metallic Use By 2031-11-13 () [id number] () [id number] (10) [id number] REF [id number] LOT [id number] Biomet Knee System 75 mm Uncoated knee tibia prosthesis, metallic Use By 2031-10-11 () [id number] () [id number] (10) [id number] REF [id number] LOT [id number] Vanguard Knee System 31 mm 8 mm Polyethylene patella prosthesis Use By 2026-10-10 () [id number] () [id number] (86) [id number] REF [id number] LOT [id number] Buytechguard Knee System 12 MM 75 MM Tibial insert Use By 2026-12-22 (91) [id number] (42) [id number] (02) [id number] [facility] [facility] [place] 01-03-2022 History and physical note History and Physical Update ( H&P completed within the previous thirty days ) I personally reviewed the History and Physical, interviewed and examined the patient prior to surgery. No changes have occurred in the patient's condition since the History and Physical was completed. [facility] [place] 01-03-2022 History and physical note History and Physical Update ( H&P completed within the previous thirty days ) I personally reviewed the History and Physical, interviewed and examined the patient prior to surgery. No changes have occurred in the patient's condition since the History and Physical was completed. documented in this encounter [facility] 10-23-2021 Note PROCEDURE: XR KNEE R T 4V or > HISTORY: Pain of right knee joint , chronic COMPARISON: XR knee right 06/20/2020 FINDINGS: BONES:Narrowing of all 3 joint spaces, greatest involving the anterior compartment. Irregular sclerosis of the tibial plateau suggesting possible fjbb-ao-xcxf contact and weightbearing. SOFT TISSUES:No visible soft [...] authenticated by: GARO CASILLAS Date: 2021-10-23 07:14 [facility] 01-08-2021 Physician Hospital Discharge summary ATTENTION: CUTOVER PATIENT Please Note: This patient was being treated during the EHR conversion from [employer] to [email or web address] on 01/08/2021 There are two medical records for this patient; one in [facility] and one in [facility]. To see the remainder of the medical record, refer to the [facility] medical record. If you have questions, please contact the Health Information Management Department Patient Name: TRINITY GODINEZ Patient [facility] 01-08-2021 History of Present illness Narrative Faxed orders to [facility] AT [phone] Discharge fodler to nursing for discharge to [facility]. Rx in folder tylenol tramadol oxycodone. Physical [...] from stand Outcome: Progressing Message left for [facility] to see when they can accept the patient Spoke to Delroy at [facility] she does not want the patient to discharge uptil after 1500. Spoke with patient and Granddaughter is planning to be here at that time anyways. Instructed to take the Discharge folder to [facility] and give the entire folder to them [...] Knee Immobilizer when up. May discharge to [facility] if OK with Gen Med and Dr [...] Immobilizer with out-of-bed. Discharge Plan: today to [facility]. LOS: 5 days VALARIE Gan Date: 01/08/2021 Time: 9:48 AM EDT [facility] - PROGRESS NOTE Patient Name : Trniity Godinez Patient : 1955 Patient Admit Date [...] be continued to be monitored at the [facility]. HTN (I10) Chronic condition & present on [...] will need to follow-up with her surveillance physician/pill machine operator post discharge Acute Post Hemorrhagic Anemia [...] from Last 1 Encounters: 01/06/21 30.41 kg/m @urkpgx30@ No intake/output data recorded. No intake/output data [...] this encounter [facility] 01-08-2021 Hospital course Narrative Patient will need an INR checked within 3 days of discharge to [facility]CF for warfarin management to be monitored by [facility] physician. Also needs outpatient follow-up with nephrology for monitoring of kidney function. Please follow-up with your pill machine operator for ongoing surveillance of your kidney function. You should have an INR checked within 3 days of discharge to [facility] for management of your warfarin. documented in this encounter [facility] 01-08-2021 Hospital Discharge instructions Marsha Doan RN [...] alcohol or with certain drugs. This includes xsnm-aya-amynuhb medicines. Make sure your doctor knows about [...] Where can you learn more? Go to [email or web address] chart Enter P175 in the search box to learn more about Learning About Managing Acute Pain at Home. Current as of: July 08, 2020 Content Version: 13.0 [employer]. Care instructions adapted under license by your healthcare professional. If you have questions about a medical condition or this instruction, always ask your healthcare professional. [employer] disclaims any warranty or liability for your [...] Where can you learn more? Go to [email or web address] chart Enter A180 in the search box to learn more about Learning About Opioids and Acute Pain. Current as of: July 08, 2020 Content Version: 13.0 [employer]. Care instructions adapted under license by your healthcare professional. If you have questions about a medical condition or this instruction, always ask your healthcare professional. [employer] disclaims any warranty or liability for your use of this information. The following attachments cannot be sent through Care Everywhere.Incentive Spirometer: General Info (Cymraes)Constipation (Cymraes)DVT (Deep Vein Thrombosis): General Info (Cymraes)Fall Prevention (Cymraes)Opioids: General Info (Cymraes)documented in this encounter [facility] 01-07-2021 Hospital Progress note Patient: TRINITY GODINEZ MRN: ([id number] Age: 65 years Sex: Female : 1955 Associated Diagnoses: None Author: Rogelio Leyva MD Assessment Assessment Diagnosis: Primary osteoarthritis of left knee (DUL65-DR M17.12, Working, Medical), Unilateral primary osteoarthritis, left [...] will need to follow-up with her surveillance physician/pill machine operator post discharge Acute Post Hemorrhagic Anemia [...] Supervising Physician Comments (more content not included)... [facility] 01-07-2021 Note ID NOW COVID-19_[facility] Progress note Patient: TRINITY GODINEZ MRN: ([id number] Age: 65 years Sex: Female : 1955 [...] (01/05 05:) POSITIVE (01/05 05:) Unit # [id number] (01/05 10:56) [id number] (01/05 10:56) List of X-rays performed in last 36 hours No X-rays charted within the last 36 hours I have reviewed the available microbiologic data available at the time (more content not included)... [facility] 01-06-2021 Hospital Progress note Patient: TRINITY GODINEZ MRN: [id number] Age: 65 years Sex: Female : 1955 Associated Diagnoses: None Author: Autumn VEGA , Rogelio Villalta Assessment Assessment Diagnosis: Primary osteoarthritis of left knee (TZW99-UT M17.12, Working, Medical), Unilateral primary osteoarthritis, left [...] will need to follow-up with her surveillance physician/pill machine operator post discharge Acute Post Hemorrhagic Anemia (D62) -received 2 units of PRBCs for hemoglobin 6.8 on 01/05/2021. Hemoglobin 8.8 this morning adequate response. Tolerated transfusion well. No indication for additional transfusion. We will continue to monitor Hold discharge for today. Suspect would like to watch another 24 hours to make sure her renal function continues to improve. Probable plans for discharge to [facility] facility in the next 24 hours Supervising Physician Comments Documentation By: Consulting (more content not included)... [facility] 01-05-2021 Hospital Progress note Patient: TRINITY GODINEZ Age: 65 years Sex: Female : 1955 Associated Diagnoses: None Author: Rogelio Leyva MD Assessment Assessment Diagnosis: Primary osteoarthritis of left knee (XXV54-OW M17.12, Working, Medical), Unilateral primary osteoarthritis, left [...] as needed O2 at bedtime at the [facility]. Nocturnal/supine desaturation. History of congestive heart [...] to renal issue (more content not included)... [facility] 01-05-2021 Hospital Progress note Patient: TRINITY GODINEZ MRN: [id number] Age: 65 years Sex: Female : 1955 [...] (01/03 10:05) NEGATIVE (01/03 10:05) Unit # [id number] (01/05) [id number] (01/05) List of X-rays performed in l (more content not included)... [facility] 01-04-2021 Surgery Surgical operation note DICTATED [...] 1 g vancomycin. SURGEON: Calos Smith MD WOOD MILL SUPERVISOR: MD Satish Cheng MD assisted with proper [...] cleared by General Medical consultants, admitted to [facility]. At this point, she was [...] the tibia. We took our reamers from [place] and created the cone for this enhanced [...] distally. We ap (more content not included)... [facility] 01-04-2021 Hospital Progress note Patient: TRINITY GODINEZ MRN: [id number] Age: 65 years Sex: Female : 1955 Associated Diagnoses: None Author: Autumn VEGA , Rogelio Villalta Assessment Assessment Diagnosis: Primary osteoarthritis of left knee (RPZ47-JL M17.12, Working, Medical), Unspecified osteoarthritis, unspecified site [...] as needed O2 at bedtime at the [facility]. Nocturnal/supine desaturation. History of congestive heart [...] 3.9 cm. Patient (more content not included)... [facility] 01-03-2021 History and physical note Patient: TRINITY GODINEZ MRN: [id number] Age: 65 years Sex: Female : 1955 Associated Diagnoses: None Author: Rogelio Leyva MD Impression Diagnosis Chronic osteoarthritis (GQP01-PV M19.90, 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 Plan Osteoarthritis Left Knee/left [...] as needed O2 at bedtime at the [facility]. Nocturnal/supine desaturation. GERD - (K21.9) Chronic [...] will need to follow-up with her surveillance physician/pill machine operator post discharge Supervising Physician Comments Documentation [...] Dexamethasone 10 mg noted given Discussed with CONSTRUCTION TECH Subjective: Rates pain currently -none currently early [...] Tendencies: Surgical/Procedure Hx Revision of knee arthroplasty ([id number]) on 01/03/2021 at 65 Years. Comments: 01/03/2021 13:17 NEIDA Hinson RN , Zoya Berrios Left knee reimplantation Debridement ([id number]) on 11/19/2020 at 65 Years. Comments: 11/19/2020 [...] CBC,SR,Creat,CRP, Vanco Trough, fax to Dr. Hicks [phone] 3)IV ATB UNTIL reimplant 4)Call Dr. Hicks [...] for More Detail Patient: TRINITY GODINEZ MRN: ([id number] Age: 65 years Sex: Female : 1955 Associated Diagnoses: None Author: Alicia Connell RN Impression Diagnosis Chronic osteoarthritis (JZK12-SO M19.90, 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 Plan Supervising Physician Comments [...] Bleeding Tendencies: Surgical/Procedure Hx Debridement (SNOMED CT [id number]) performed by Luis Quinn MD , Calos [...] CBC,SR,Creat,CRP, Vanco Trough, fax to Dr. Hicks [phone] 3)IV ATB UNTIL reimplant 4)Call Dr. Hicks [...] this encounter [facility] 01-03-2021 Mycobacterium sp Org specific cx Ql (Unsp spec) [facility] Microbiology PROCEDURE: Culture AFB and Stain SOURCE: [...] CONTRIBUTOR_SYSTEM, CO_PN NO ACID FAST BACILLI SEEN [facility] Comment on above: Performed By: #### 5 0941-4 ####[address] 01-03-2021 Mycobacterium sp Org specific cx Ql (Unsp spec) [facility] Microbiology PROCEDURE: Culture AFB and Stain SOURCE: [...] CONTRIBUTOR_SYSTEM, CO_PN NO ACID FAST BACILLI SEEN [facility] Comment on above: Performed By: #### 5 0941-4 ####[address] 01-03-2021 Mycobacterium sp Org specific cx Ql (Unsp spec) [facility] Microbiology PROCEDURE: Culture AFB and Stain SOURCE: [...] CONTRIBUTOR_SYSTEM, CO_PN NO ACID FAST BACILLI SEEN [facility] Comment on above: Performed By: #### 5 0941-4 ####[address] 01-03-2021 Mycobacterium sp Org specific cx Ql (Unsp spec) [facility] Microbiology PROCEDURE: Culture AFB and Stain SOURCE: [...] CONTRIBUTOR_SYSTEM, CO_PN NO ACID FAST BACILLI SEEN [facility] Comment on above: Performed By: #### 5 0941-4 ####[address] 01-03-2021 Bacteria identified Sterile body fluid culture Nom (Unsp spec) [facility] Microbiology PROCEDURE: Culture Body Fluid + Susceptibility [...] RARE POLYS No Epithelials NO ORGANISMS SEEN [facility] Comment on above: Performed By: #### 6 36-1 ####[address] 01-03-2021 Mycobacterium sp Org specific cx Ql (Unsp spec) [facility] Microbiology PROCEDURE: Culture AFB and Stain SOURCE: [...] CONTRIBUTOR_SYSTEM, CO_PN NO ACID FAST BACILLI SEEN [facility] Comment on above: Performed By: #### 5 0941-4 ####[address] 01-03-2021 Anesthesiology Preoperative evaluation and management note Patient: TRINITY GODINEZ MRN: ([id number] Age: 65 years Sex: Female : 1955 [...] Creat,CRP, Vanco Trough, fax to Dr. Hicks [phone])IV ATB UNTIL reimplant4)Call Dr. Hicks for F/C/S, N/V/D, rash, [phone])F/U with Dr Hicks in 4-5 weeks COMMENTS: [...] Yes. The p (more content not included)... [facility] 01-03-2021 Hospital Progress note Patient: TRINITY GODINEZ MRN: [id number] Age: 65 years Sex: Female : 1955 [...] intraneural local anesthetic injection throughout the procedure. [facility] 01-03-2021 Hospital Progress note Patient: TRINITY GODINEZ MRN: [id number] Age: 65 years Sex: Female : 1955 [...] intraneural local anesthetic injection throughout the procedure. [facility] 01-03-2021 Procedure note DICTATED BY: CALOS [...] 1 g vancomycin. SURGEON: Calos Smith MD WOOD MILL SUPERVISOR: MD Satish Cheng MD assisted with proper [...] cleared by General Medical consultants, admitted to [facility]. At this point, she was [...] the tibia. We took our reamers from [employer] and created the cone for this enhanced [...] and we did close this over a #10-Kittitian drain. We closed the subcutaneous tissues with 2-0 Vicryl and the skin with elvira. Applied a very bulky dressing and took the patient to the Post-Anesthesia Care Unit in satisfactory condition. Roentgenographs showed satisfactory position and alignment of components. TRINITY GODINEZ Birthdate: 1955 D/01/03/2021 16:37:19 T/01/03/2021 20:53:46 VOICE JOB ID: [id number] Ramy Angel thanks you for the opportunity to care for your patient. DID: [id number] documented in this encounter [facility] 11-23-2020 Surgery Surgical operation note DICTATED BY: [...] to proceed and she is admitted to [facility], evaluated by the anesthesiologist, adductor [...] cement from t (more content not included)... [facility] 11-22-2020 Hospital Progress note Patient: TRINITY GODINEZ MRN: ([id number] [facility]: [id number] Age: 65 years Sex: Female : 1955 [...] N (11/22 13:) Device Identifier ID NOW COVID-19_[employer] EUA (11/22 13:) MPV 10.2 FL [...] Reactions (Selected) Sever (more content not included)... [facility] 11-22-2020 Hospital Progress note Patient: TRINITY GODINEZ MRN: ([id number] Age: 65 years Sex: Female : 1955 Associated Diagnoses: None Author: Mario VEGA , Trey Carrasco Assessment Assessment Diagnosis: Osteoarthritis of left knee (QJC63-TZ M17.9, 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 Plan A medical consult [...] 2 / l (more content not included)... [facility] 11-22-2020 Note ID NOW COVID-19_[facility]bo [facility] 11-22-2020 Physician Hospital Discharge summary CLINICAL SUMMARY Please take this summary document to your follow up appointments. [facility] 11/22/20 14:48 [address] [place]. [address] PATIENT INFORMATION Name: TRINITY GODINEZ Address: [address] [place] [address] Age: 65 Years Phone: [phone] : 1955 12:00 MRN: [id number] Sex: Female Race: White Ethnicity: Not Hispan/Lat Admitted From: Clinic or [facility] Medical Service: Orthopedic Surgery Nurse Unit/Bed: (CA) 2N 0221-01 Admit Date: 11/19/2020 09:38 PCP: Levi Shine MD PHYSICIANS INVOLVED WITH CARE Attending Physicians: Luis Quinn MD , Calos - Orthopaedic Surg Admitting Physician: Luis Quinn MD , Calos - Orthopaedic Surg Primary Care Physician:Levi Shine MD,[facility], - Consults: Shailesh VEGA , Grabiel Maciel - Infectious Disease Andrew VEGA , Jose Carrasco - Internal Medicine Mario VEGA , Trey E - [facility], [facility] - Internal Medicine Angeles VEGA , [...] CBC,SR,Creat,CRP, Vanco Trough, fax to Dr. Hicks [phone] 3)IV ATB UNTIL reimplant 4)Call Dr. Hicks for F/C/S, N/V/D, rash, 5)F/U with Dr Hikcs in 4-5 weeks. Refills: 0., Call Dr. [...] CBC,SR,Creat,CRP, Vanco Trough, fax to Dr. Hicks [phone] 3)IV ATB UNTIL reimplant 4)Call Dr. Hicks for F/C/S, N/V/D, rash, 5)F/U with Dr Hicks in 4-5 weeks. Refills: 0., Call Dr. Hicks if released from your facility before IV therapy completed; Notify Dr. Hicks if Patient is admitted to the hospital. Comment Freetext M (more content not included)... [facility] 11-21-2020 Hospital Progress note Patient: TRINITY GODINEZ MRN: [id number] Age: 65 years Sex: Female : 1955 Associated Diagnoses: None Author: Shailesh VEGA , Grabiel Maciel Assessment 1. Knee: Status post re-radical debridement. Intraoperative cultures presently pending. 2. History of infection: Trying to obtain culture reports from her Hospital in [place] from last January. 3. Disposition: Anticipate [...] Q4h, PRN: Itching/Pruri (more content not included)... [facility] 11-21-2020 Hospital Progress note Patient: TRINITY GODINEZ MRN: [facility])-[id number] Age: 65 years Sex: Female : 1955 Associated Diagnoses: None Author: Andrew VGEA , Jose Carrasco Supervising Physician Comments Documentation By: Consulting Physician. Assessment Assessment Diagnosis: Osteoarthritis (DKJ66-LE M19.90, 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 Plan Failed left TKR [...] lab test) CHEMISTRY (more content not included)... [facility] 11-20-2020 Hospital Progress note Patient: TRINITY GODINEZ MRN: [id number] Age: 65 years Sex: Female : 1955 Associated Diagnoses: None Author: Andrew VEGA , Jose Carrasco Supervising Physician Comments Documentation By: Consulting Physician. Assessment Assessment Diagnosis: Osteoarthritis (KMG47-VC M19.90, 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 Plan Failed left TKR [...] rounds 11/20. Continue to monitor on the LAMONI LUPE protocol. Obesity: BMI 33. follow per [...] 246 (11/20 04:2 (more content not included)... [facility] 11-19-2020 Hospital Progress note Patient: TRINITY GODINEZ MRN: [id number] Age: 65 years Sex: Female : 1955 Associated Diagnoses: None Author: [place] Reynoso MD Assessment Assessment Diagnosis: Osteoarthritis (DRN14-FV M19.90, 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 Plan Failed left TKR [...] 16:24:17 See Radiology Report for More Detail [facility] 11-19-2020 Mycobacterium sp Org specific cx Ql (Unsp spec) [facility] Microbiology PROCEDURE: Culture AFB and Stain SOURCE: [...] CONTRIBUTOR_SYSTEM, CO_PN NO ACID FAST BACILLI SEEN [facility] Comment on above: Performed By: #### 5 0941-4 ####[address] 11-19-2020 Mycobacterium sp Org specific cx Ql (Unsp spec) [facility] Microbiology PROCEDURE: Culture AFB and Stain SOURCE: [...] CONTRIBUTOR_SYSTEM, CO_PN NO ACID FAST BACILLI SEEN [facility] Comment on above: Performed By: #### 5 0941-4 ####[address] 11-19-2020 Mycobacterium sp Org specific cx Ql (Unsp spec) [facility] Microbiology PROCEDURE: Culture AFB and Stain SOURCE: [...] CONTRIBUTOR_SYSTEM, CO_PN NO ACID FAST BACILLI SEEN [facility] Comment on above: Performed By: #### 5 0941-4 ####[address] 11-19-2020 Mycobacterium sp Org specific cx Ql (Unsp spec) [facility] Microbiology PROCEDURE: Culture AFB and Stain SOURCE: [...] CONTRIBUTOR_SYSTEM, CO_PN NO ACID FAST BACILLI SEEN [facility] Comment on above: Performed By: #### 5 0941-4 ####[address] 11-19-2020 Anesthesiology Preoperative evaluation and management note Patient: TRINITY GODINEZ MRN: ([id number] Age: 65 years Sex: Female : 1955 [...] 05:37:52 by Sarah RN , Ange R [place] Medications: ascorbic acid 1,000 mg = 1 [...] mL, 1,000 m (more content not included)... [facility] 11-17-2020 Hospital Progress note Patient: TRINITY [...] intrathecal local anesthetic injection throughout the procedure. [facility] 11-17-2020 Anesthesiology Preoperative evaluation and management note Patient: TRINITY GODINEZ MRN: [facility])-[id number] Age: 65 years Sex: Female : 1955 [...] 11:29:18 by Fely BERMUDEZ , Teresita Gibbs [place] Medications: ascorbic acid 1,000 mg = 1 [...] 20 mL/hr, I (more content not included)... [facility] Evaluation note Diagnosis Pain management documented in this encounter [facility] note* Diagnosis Unilateral primary osteoarthritis, right knee S/P TKR (total knee replacement), right documented in this encounter [facility] note* Diagnosis 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, initial encounter ([facility])- Primary Complication of internal left knee prosthesis ([facility]) documented in this encounter [facility] Discharge instructions* Attachments The following attachments cannot be sent through Care Everywhere. * Acute Pain Management: General Info (Cymraes) * Opioids: Safe Use (Cymraes) * Fall Prevention (Cymraes) * DVT (Deep Vein Thrombosis): Prevention: General Info (Cymraes) * Constipation (Cymraes) * Incentive Spirometer: General Info (Cymraes) * warfarin (oral) (Cymraes) * Enoxaparin (Lovenox) (Cymraes) [facility] Attachments The following attachments cannot be sent through Care Everywhere. * DVT (Deep Vein Thrombosis): Prevention: General Info (Cymraes) * Incentive Spirometer: General Info (Cymraes) * Fall Prevention (Cymraes) * Opioids: General Info (Cymraes) * Constipation (Cymraes) * warfarin (oral) (Cymraes) * enoxaparin (Cymraes) * Antibiotics: General Info (Cymraes) [facility] Auth/Cert Specialty Diagnoses / Procedures Referred By Mirella benavides Referred To Contact Diagnoses Unilateral primary osteoarthritis, right knee M17.11 Procedures NC ARTHROPLASTY KNEE CONDYLE&PLATEAU MED/LAT CPTS W/WO PATELLA RESURFACING NC ARTHROPLASTY KNEE CONDYLE&PLATEAU MED/LAT CPTS W/WO PATELLA RESURFACING Right total knee arthroplasty Calos Smith MD [address] [place] [address] Referral ID Status Reason Start Date Expiration Date Visits Re quested Visits Authorized [id number] 11/08/2021 1 1 [facility] for visit Narrative* Auth/Cert Specialty Diagnoses / Procedures Referred By Mirella benavides Referred To Contact Diagnoses 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, initial encounter ([facility]) t84.093a Procedures NC RECONSTR DISLOCATING PATELLA W EXT REALIGNMENT AND/OR MUSCLE ADVMNT/RLS NC LATERAL RETINACULAR RELEASE OPEN Left knee extensor mechanism realignment with lateral retinacular release Calos Smith MD [address] [place] [address] [facility] [place] [address] [place] [address] Referral ID Status Reason Start Date Expiration Date Visits Re quested Visits Authorized [id number] 1 1 [facility] Summary Purpose Family History No Family History [...] status order details. Procedure Findings Note Patient: TRIINTY GODINEZ MRN : ([facility])-[id number] Age: 65 years Sex: Female : 1955 [...] concluded. Note Patient: TRINITY GODINEZ MRN : ([facility])-[id number] Age: 65 years Sex: Female : 1955 [...] section and content) DATE CREATED AUTHOR 11/28/2020 [facility] DATE CREATED AUTHOR AUTHOR'S ORGANIZ ATION 01/12/2021 [facility] DATE CREATED AUTHOR AUTHOR'S ORGANIZ ATION 03/04/2021 [facility] DATE CREATED AUTHOR AUTHOR'S ORGANIZ ATION 04/25/2021 [facility] DATE CREATED AUTHOR AUTHOR'S ORGANIZ ATION 04/30/2021 [facility] DATE CREATED AUTHOR AUTHOR'S ORGANIZ ATION 09/08/2022 [facility] DATE CREATED AUTHOR AUTHOR'S ORGANIZ ATION 02/21/2023 [facility] DATE CREATED AUTHOR AUTHOR'S ORGANIZ ATION 02/21/2023 [facility] Ordered Prescriptions (unrec ognized section and [...] Teresita Hirsch RN)2041 (Given - Provider: Richard Hernnadez, AIDAN) 0425 (Given - Provider: Richard Hernandez, [...] PRN, mild pain, headaches, fever, Starting on Yevtte 04/20/22 at 1652 albuterol 2.5 mg /3 [...] Care Teams (unrecognized sec tion and content) Analytics Developer Relationship Specialty Start Date End Date Levi Shine MD [address] [place] [address] PCP - General 11/22/20 Analytics Developer Relationship Specialty Start Date End Date eLvi Shine MD [address] [place] [address] PCP - General 11/22/20 Analytics Developer Relationship Specialty Start Date End Date Levi Shine MD [address] [place] [address] PCP - General 11/22/20 FOR RECORDS PERTAINING [...] BE BASED ON THE PRIMARY CLINICAL RECORDS. [facility] [employer] [facility]. provides no warranty or guarantee of the accuracy or completeness of information in this document.
[2024-09-13 21:52] LABS: Glucometer 129 mg/dL (74-106)
[2024-09-13 22:08] LABS: Bilirubin Urine NEGATIVE (NEGATIVE); Blood Urine NEGATIVE (NEGATIVE); Clarity Urine CLEAR (CLEAR); Color Urine LT. YELLOW (YELLOW); Glucose Urine UA NEGATIVE (NEGATIVE); Ketones Urine TRACE mg/dL (NEGATIVE); Leukocyte Esterase Urine NEGATIVE (NEGATIVE); Nitrite Urine POSITIVE (NEGATIVE); Protein Urine NEGATIVE (NEG/TRACE); Specific Gravity Urine <=1.005 (1.005-1.025); Urobilinogen Urine 0.2 EU/dL (0.2-1.0); pH Urine 5.5 (5.0-9.0)
[2024-09-13 22:09] LABS: Urine Microscopic Indicated YES
[2024-09-13] MEDS: IPRATROPIUM/ALBUTEROL SULFATE 3 ML AMPUL.NEB IH (22:11)
[2024-09-13 22:14] LABS: Bacteria Urine MODERATE #/HPF (NONE SEEN); Cast Seen? NONE SEEN #/LPF (NONE SEEN); Crystals Seen? None Seen #/HPF (None Seen); Mucus Urine NONE SEEN (NONE SEEN); RBC Urine NONE SEEN #/HPF (0-2); Squamous Epithelial Cell Urine FEW #/LPF (NONE/RARE); Urine Culture Indicated YES-FRMC; WBC Urine 0-2 #/HPF (NONE SEEN)
[2024-09-13] MEDS: METOPROLOL SUCCINATE 50 MG TAB.ER.24H 100 MG PO (23:51)
[2024-09-13] MEDS: GABAPENTIN 400 MG CAPSULE 1200 MG PO (23:52)
[2024-09-13] MEDS: ENOXAPARIN SODIUM 40 MG/0.4 ML SYRINGE SUBQ (23:52)
[2024-09-13] MEDS: METOCLOPRAMIDE HCL 10 MG TABLET PO (23:55)
[2024-09-14] VITALS (24 sets, daily range): BP systolic 111–153; BP diastolic 60–85; PULSE 66–108; TEMP 36.3–36.7; O2SAT 90–95
[2024-09-14] MEDS: METHYLPREDNISOLONE SOD SUCC PF 40 MG/ML VIAL 60 MG IVP ×3 (00:39→16:30)
[2024-09-14 06:29] LABS: Anion Gap 16.6; BUN Creatinine Ratio 25.5; Calcium 8.8 mg/dL (8.5-10.1); Chloride 104 mmol/L (98-107); Estimated GFR (African America >60 (>=60 mL/min/1.73m^2); Estimated GFR (Non-African Ame 54 (>=60 mL/min/1.73m^2); Glucose 155 mg/dL (74-106); Potassium 4.6 mmol/L (3.5-5.1); Sodium 140 mmol/L (136-145)
[2024-09-14] MEDS: GABAPENTIN 300 MG CAPSULE 600 MG PO (08:47)
[2024-09-14] MEDS: PANTOPRAZOLE SODIUM 40 MG TABLET.DR PO (08:47)
[2024-09-14] MEDS: VENLAFAXINE HCL ER 75 MG CAPSULE PO (08:47)
[2024-09-14] MEDS: METOCLOPRAMIDE HCL 10 MG TABLET PO ×4 (08:47→21:28)
[2024-09-14] MEDS: CETIRIZINE HCL 10 MG TABLET PO (08:48)
[2024-09-14] MEDS: METOPROLOL SUCCINATE 50 MG TAB.ER.24H 100 MG PO ×2 (08:48→21:27)
[2024-09-14] MEDS: ISOSORBIDE MONONITRATE 60 MG TAB.ER.24H PO (08:48)
[2024-09-14] MEDS: TRAMADOL HCL 50 MG TABLET PO ×3 (08:50→21:28)
--- NOTE | 2024-09-14 09:51 | PM.IMHP1 ---
Internal Medicine - H&P: HPI History of Present Illness Chief complaint: sob, hypoxia, exacerbation Narrative: This is a 69-year-old woman who came to emergency room last night with a COPD exacerbation. In the emergency room she did have findings of acute respiratory distress. The ambulance crew had to give her nebulizer treatments. In the emergency room she was tachycardic. She had heart rates of 103 bpm and 108 bpm. A chest x-ray was done that shows no acute process. A twelve-lead EKG showed sinus tachycardia but no acute ST or T wave changes. And CT angiography of the chest was done which ruled out pulmonary embolus, but did demonstrate changes consistent with emphysema. Her tachycardia did get better with treatment of the COPD exacerbation. This morning her heart rate has improved to 71 beats per minute. About 5 days before this she came to the emergency room after a fall at home. She got up to ambulate and the next thing she knows was that she found her self on the ground. She ultimately remained on the ground for about 14 hours. She had to shuffle on the floor on her elbows to find and use a grabber and reach for her cell phone to summon help. She did come to the ER at that time, but refused admission at that time. She says that she landed flat on her front side, with bruises on her abdomen, and on the tips of her breasts. She has pain on the anterior aspect of her rib cage on both sides. She also got got some abrasions on both of her elbows from trying to scoot herself across the floor. She denies any prodromal symptoms before this episode of passing out. She denies any tachycardia or dyspnea or lightheadedness. Her son is at the bedside. He thinks that the reason that she fell might be because her blood pressure medicines are too strong. It seems that a few years ago she had an episode where she stood up quickly while sitting on the front porch and passed out in a similar fashion onto the ground. She has very limited physical mobility at home. She has a history of bilateral knee replacements and the left knee was very complicated and required a large number of surgeries to finally complete the process. She and her family are in the process of moving from her previous dwelling, where things were on different levels, to a new dwelling where everything is on one floor. She does have a walker at home. She does say that she uses the walker most of the time, but she did not have her walker in front of her when she fell. At home she had been using her rescue inhaler very frequently recently, and it sounds like she uses this with any minimal exertion, such as doing the laundry. She has not been using her maintenance COPD inhaler she tells me. She says I thought I was good so I did not need it. 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 She also reports that morphine gave her hives. She has never needed oxygen at home before. In the emergency room last night she had acute hypoxic respiratory failure so she was placed on 2 L of oxygen by nasal cannula. Her son at the bedside says that they are working on getting her life alert so that she will not have a dangerous fall like that again. Continues to smoke cigarettes. 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 More recently in residential she has been smoking half a pack per day. She says that over the last few days she has only been smoking 1 cigarette/day. Review of Systems ROS Narrative A 10 point review of systems is obtained and is negative except as mentioned elsewhere in this documentation. [facility] Medical History (Updated 09/14/24 @ 10:08 by SOPHIA JACKSON) History of glaucoma ?Z86.69 - Personal history of other diseases of the nervous system and sense organs (ICD-10) Medication side effect ?T88.7XXA - Unspecified adverse effect of drug or medicament, initial encounter (ICD-10) Contusion of left chest wall ?S20.212A - Contusion of left front wall of thorax, initial encounter (ICD-10) GERD (gastroesophageal reflux disease) ?K21.9 - Gastro-esophageal reflux disease without esophagitis (ICD-10) Anxiety ?F41.9 - Anxiety disorder, unspecified (ICD-10) Seasonal allergies ?J30.2 - Other seasonal allergic rhinitis (ICD-10) Bronchitis ?J40 - Bronchitis, not specified as acute or chronic (ICD-10) COPD (chronic obstructive pulmonary disease) ?J44.9 - Chronic obstructive pulmonary disease, unspecified (ICD-10) Hypertension ?I10 - Essential (primary) hypertension (ICD-10) Surgical History (Updated 09/14/24 @ 10:01 by SOPHIA JACKSON) History of cataract surgery ?Z98.49 - Cataract extraction status, unspecified eye (ICD-10) History of appendectomy ?Z90.49 - Acquired absence of other specified parts of digestive tract (ICD-10) History of hysterectomy ?Z90.710 - Acquired absence of both cervix and uterus (ICD-10) History of left hip replacement ?Z96.642 - Presence of left artificial hip joint (ICD-10) History of right hip replacement ?Z96.641 - Presence of right artificial hip joint (ICD-10) History of total right knee replacement ?Z96.651 - Presence of right artificial knee joint (ICD-10) History of left knee replacement ?Z96.652 - Presence of left artificial knee joint (ICD-10) Family History Mother Family history of CHF (congestive heart failure) Family history of cancer Family history of diabetes mellitus Family history of hypertension Family history of myocardial infarction Brother Family history of cancer Family history of hypertension Social History Within the past year, how often did you have a drink containing alcohol: never Score interpretation: A score less than 3 is consistent with normal alcohol consumption. Smoking status: Light tobacco smoker Non-prescribed substance use: denies use Previous occupational history: disabled Highest level of school completed/degree received: some college, no degree Are you now , , , , never or living with a partner: Little interest or pleasure in doing things: not at all Feeling down, depressed, or hopeless: not at all Feel stressed/tense/nervous/anxious/difficulty sleeping: only a little Meds Home Medications and Allergies Home Medications ?Medication ?Instructions ?Recorded ?Confirmed ?Type albuterol sulfate 90 mcg/actuation 2 inh inhalation Q6H PRN shortness 09/26/22 09/13/24 History aerosol inhaler of breath or wheezing cetirizine 10 mg tablet 10 mg PO DAILY 09/26/22 09/13/24 History gabapentin 600 mg tablet 1,200 mg PO .qhs 09/26/22 09/13/24 History isosorbide mononitrate 60 mg 60 mg PO .q24 09/26/22 09/13/24 History tablet,extended release 24 hr metoclopramide HCl 10 mg tablet 10 mg PO .COMPLEX 09/26/22 09/13/24 History metoprolol succinate 100 mg 100 mg PO Q12H 09/26/22 09/13/24 History tablet,extended release 24 hr pantoprazole 40 mg tablet,delayed 40 mg PO DAILY 09/26/22 09/13/24 History release potassium chloride 10 mEq 10 meq PO BID 09/26/22 09/13/24 History tablet,extended release(part/cryst) gabapentin 600 mg tablet 600 mg PO QAM 04/28/23 09/13/24 History venlafaxine 150 mg 150 mg PO DAILY 06/25/23 09/13/24 History capsule,extended release 24 hr venlafaxine 75 mg capsule,extended 75 mg PO DAILY 06/25/23 09/13/24 History release 24 hr methocarbamol 500 mg tablet 500 mg PO Q8H PRN muscle pain #10 09/08/24 09/13/24 Rx tabs tramadol 50 mg tablet 50 mg PO Q8H PRN pain #14 tabs 09/08/24 09/13/24 Rx diazepam 2 mg tablet 2 mg PO TID PRN anxiety 09/13/24 09/13/24 History ondansetron 4 mg disintegrating 4 mg PO QID PRN nausea and vomiting 09/13/24 09/13/24 History tablet temazepam 30 mg capsule 30 mg PO QPM PRN sleep 09/13/24 09/13/24 History Allergies Allergy/AdvReac Type Severity Reaction Status Date / Time NSAIDS (Non-Steroidal Allergy Severe Anaphylaxis Verified 12/03/23 12:54 Anti-Inflamma vancomycin Allergy hair falls Verified 12/03/23 12:54 out morphine AdvReac Intermediate Hives Verified 12/03/23 12:54 baclofen AdvReac Confusion Verified 12/03/23 12:54 Exam Narrative Exam Narrative: General: Sitting in bed she is awake and alert. She looks comfortable. Head: To be this is normocephalic and atraumatic. Eyes: EOMI. FORGE HELPER are clear. Psychiatric: Mood and affect are normal. She is pleasant and helpful to the interview. Neck: No jugular venous distention. No thyromegaly. Lungs: When I auscultate her I do not hear very active wheezing. But she is taking very small breaths. When she takes a deeper breath she gets a dry and hacking cough. No focal areas of crackles. Cardiac: Regular rate and rhythm. No rubs gallops to auscultation. GI: Abdomen soft, normal bowel sounds to auscultation. Lower extremities: No pitting edema. Limited musculature from the knees down to her feet which looks like it is long-term. Skin: No systemic rashes or lesions. Does have abrasions on both elbows. Has some bruises about the arms. Bruising on the anterior rib cage present and about 5 or 6 days old. Constitutional Vital Signs, click to edit/add: Last Vital Signs Temp 98 F 09/14/24 07:53 Pulse 71 09/14/24 07:53 Resp 16 09/14/24 07:53 BP 153/85 H 09/14/24 07:53 Pulse Ox 94 L 09/14/24 07:53 O2 Del Method Nasal Cannula 09/14/24 07:53 O2 Flow Rate 2 09/14/24 07:53 Internal Medicine - H&P: Reslt Labs Labs: Short CBC 09/13/24 Range/Units 15:48 WBC 7.7 (4.0-11.0) 10^3/uL Hgb 11.9 L (12.0-16.0) g/dL Hct 36.4 (36.0-48.0) % Plt Count 205 (150-450) 10^3/uL BMP 09/13/24 09/14/24 15:48 05:49 Sodium 139 140 Potassium 4.2 4.6 Chloride 101 104 Carbon Dioxide 22.5 24.0 BUN 24.0 H 26.0 H Creatinine 1.09 H 1.02 Glucose 94 155 H Calcium 9.4 8.8 Liver Function 09/13/24 Range/Units 15:48 Total Bilirubin 0.9 (0.2-1.0) mg/dL AST 30 (15-37) U/L ALT 29 (14-59) U/L Alkaline Phosphatase 126 H (46-116) U/L Albumin 3.4 (3.4-5.0) g/dL Urine 09/13/24 Range/Units 22:00 Urine Color Lt. yellow (YELLOW) Urine Clarity Clear (CLEAR) Urine pH 5.5 (5.0-9.0) Ur Specific Herod <=1.005 A (1.005-1.025) Urine Protein Negative (NEG/TRACE) mg/dL Urine Glucose (UA) Negative (NEGATIVE) mg/dL Assessment and Plan Assessment and Plan (1) Acute exacerbation of chronic obstructive pulmonary disease: (2) Multiple falls: (3) Acute hypoxic respiratory failure: (4) Emphysema lung: Qualifiers: Emphysema type: unspecified Qualified Code(s): J43.9 - Emphysema, unspecified (5) Physical deconditioning: Plan Assessment: Acute exacerbation of chronic obstructive pulmonary disease. Emphysema visible on the CTA of her chest. Acute hypoxic respite failure, due to the above. Doubt bacterial infection as she has no fever and white blood count is very normal. Going tobacco smoking. Patient encouraged to quit. Secondary problem: Fall at home. She lay on the floor for 14 hours. She probably had mild rhabdomyolysis from this. Clinically I think that fall at home was due to COPD. Plan: Hospital admission, inpatient status. It will take at least 48 hours to make sure that it corticosteroids are working and lungs have calm down enough that she will not suffer a reexacerbation of her COPD. She is on supplemental oxygen. I think she meets all of the criteria for inpatient status from the beginning. She also needs aggressive physical therapy and Occupational Therapy and ongoing telemetry monitoring in a medically supervised setting. Her hospital stay is expected to last between 3 and 4 days. Continue IV Solu-Medrol at 60 mg IV every 6 hours. DuoNebs scheduled 4 times a day. Albuterol 1 unit dose every 3 hours as needed for acute coughing or wheezing or acute bronchospasm. Will give a trial of Singulair 10 mg given at bedtime. Omeprazole for GI protection. Heparin for DVT prophylaxis. Ongoing telemetry monitoring. Consult to physical therapy Consult Occupational Therapy. Pain control Tylenol and hopefully low doses of tramadol as needed for breakthrough pain. I have asked the nurses to do orthostatic vital signs to see if she has orthostatic hypotension when sitting up or otherwise physically upright. Continue to try and titrate down supplemental oxygen as tolerated. Will except oxygen saturations 89 to 92%.
[2024-09-14] MEDS: IPRATROPIUM/ALBUTEROL SULFATE 3 ML AMPUL.NEB IH ×3 (11:32→21:52)
[2024-09-14] MEDS: ACETAMINOPHEN 325 MG TABLET 650 MG PO ×2 (14:21→21:28)
[2024-09-14] MEDS: ENOXAPARIN SODIUM 40 MG/0.4 ML SYRINGE SUBQ (21:25)
[2024-09-14] MEDS: GABAPENTIN 400 MG CAPSULE 1200 MG PO (21:26)
[2024-09-14] MEDS: POTASSIUM CHLORIDE 10 MEQ ER TABLET PO (21:27)
[2024-09-14] MEDS: MONTELUKAST SODIUM 10 MG TABLET PO (21:27)
[2024-09-14] MEDS: METHOCARBAMOL 500 MG TABLET PO (22:38)
[2024-09-15] VITALS (24 sets, daily range): BP systolic 122–153; BP diastolic 62–109; PULSE 60–96; TEMP 36.4–36.8; O2SAT 90–94
[2024-09-15] MEDS: DIAZEPAM 2 MG TABLET PO ×3 (00:12→23:55)
[2024-09-15] MEDS: OXYCODONE HCL 5 MG TABLET PO (00:12)
[2024-09-15] MEDS: METHYLPREDNISOLONE SOD SUCC PF 40 MG/ML VIAL 60 MG IVP (00:17)
[2024-09-15] MEDS: IPRATROPIUM/ALBUTEROL SULFATE 3 ML AMPUL.NEB IH ×5 (05:00→23:29)
[2024-09-15 05:47] LABS: Basophils Percent Auto 0.1 % (0.2-2.0); Hematocrit 33.6 % (36.0-48.0); Hemoglobin 10.9 g/dL (12.0-16.0); Immature Granulocytes Abs Auto 0.04 10^3/uL (0.00-0.03); Immature Granulocytes Pct Auto 0.4 % (0.0-0.5); Lymphocytes Absolute Auto 0.7 10^3/uL (1.2-3.8); Lymphocytes Percent Auto 6.8 % (20.5-60.0); Mean Corpuscular HGB Conc 32.4 g/dL (29.9-35.2); Mean Corpuscular Hemoglobin 32.1 pg (26.7-34.0); Mean Corpuscular Volume 98.8 fL (81.0-99.0); Mean Platelet Volume 12.4 fL (9.5-13.5); Monocytes Absolute Auto 0.3 10^3/uL (0.3-0.8); Monocytes Percent Auto 3.3 % (1.7-12.0); Neutrophils Absolute Auto 8.8 10^3/uL (1.4-6.5); Neutrophils Percent Auto 89.4 % (43.0-75.0); Platelet Count 220 10^3/uL (150-450); Red Cell Distribution Width 12.7 % (11.0-15.0); White Blood Count 9.9 10^3/uL (4.0-11.0)
[2024-09-15 06:02] LABS: Anion Gap 15.6; BUN Creatinine Ratio 36.4; Calcium 8.9 mg/dL (8.5-10.1); Carbon Dioxide 24.9 mmol/L (21.0-32.0); Chloride 104 mmol/L (98-107); Estimated GFR (African America >60 (>=60 mL/min/1.73m^2); Estimated GFR (Non-African Ame 51 (>=60 mL/min/1.73m^2); Glucose 156 mg/dL (74-106); Potassium 4.5 mmol/L (3.5-5.1); Sodium 140 mmol/L (136-145)
--- NOTE | 2024-09-15 07:00 | ECG_ITS ---
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 Measurements Intervals [place] Rate: 64 P: 86 NV: 146 QRS: 37 QRSD: 84 T: 41 QT: 435 QTc: 452 Interpretive Statements SINUS RHYTHM WITH OCCASIONAL SUPRAVENTRICULAR PREMATURE COMPLEXES Otherwise normal ECG Compared to ECG 09/13/2024 15:24:53 Sinus tachycardia no longer present Electronically Signed On 09-15-2024 6:54:21 EDT by GELACIO SHORT M.D.
--- NOTE | 2024-09-15 07:36 | P.PN_ITS ---
Progress Note: Subjective Subjective Interval history: Patient still with significant dyspnea with any activity., Cough persisting and dry, right-sided rib pain associated with cough As described lower abdominal discomfort and pressure in urinary frequency, states she is going every hour Exam Constitutional Vital Signs, click to edit/add: Last Vital Signs Temp 98.1 F 09/15/24 04:00 Pulse 60 09/15/24 06:00 Resp 16 09/15/24 04:00 BP 134/75 09/15/24 06:00 Pulse Ox 94 L 09/15/24 05:00 O2 Del Method Nasal Cannula 09/15/24 05:00 O2 Flow Rate 1 09/15/24 05:00 Documenting provider has reviewed patient's vital signs: yes Common normals: no apparent distress Chest Common normals: inspection of chest normal Respiratory Common normals: normal respiratory effort and no retractions Auscultation: rhonchi; no wheezes (Treatment 2 hours ago) Cardio Common normals: regular rate, regular rhythm and no murmurs GI Common normals: Normal to inspection, nondistended, normoactive bowel sounds present and soft to palpation; tender (Suprapubic tenderness) Extremity Common normals: normal to inspection, full ROM, no joint enlargement and no clubbing, cyanosis or edema Neuro Common normals: oriented x3, CN's II-XII intact bilaterally and moves all extremities Progress Note: Objective Labs Labs: Short CBC 09/15/24 Range/Units 05:28 WBC 9.9 (4.0-11.0) 10^3/uL Hgb 10.9 L (12.0-16.0) g/dL Hct 33.6 L (36.0-48.0) % Plt Count 220 (150-450) 10^3/uL BMP 09/15/24 05:28 Sodium 140 Potassium 4.5 Chloride 104 Carbon Dioxide 24.9 BUN 39.0 H Creatinine 1.07 H Glucose 156 H Calcium 8.9 Progress Note: A&P Assessment and Plan (1) Acute exacerbation of chronic obstructive pulmonary disease: (2) Multiple falls: (3) Acute hypoxic respiratory failure: (4) Emphysema lung: Qualifiers: Emphysema type: unspecified Qualified Code(s): J43.9 - Emphysema, unspecified (5) Physical deconditioning: (6) Acute chest wall pain: (7) Low back pain: (8) Anxiety: (9) Hypertension: Qualifiers: Hypertension type: primary hypertension Qualified Code(s): I10 - Essential (primary) hypertension (10) GERD (gastroesophageal reflux disease): Qualifiers: Esophagitis presence: esophagitis presence not specified Qualified Code (s): K21.9 - Gastro-esophageal reflux disease without esophagitis (11) Acute UTI: (12) Iron deficiency anemia: (13) Drug-induced hyperglycemia: (14) Respiratory distress: (15) Coronary artery disease: (16) Depression: Plan Admission findings: Uncontrolled hypertension, sinus tachycardia, respiratory distress, acute hypoxia with O2 sat of 77% on room air, meeting criteria for sepsis (tachycardia, respiratory distress, known infectious source of lungs and possibly urine) Acute exacerbation of COPD possible viral, resulting in acute hypoxia with O2 sat of 77% and sepsis-patient not tolerating steroid dose will decrease dose, increase aerosol frequency, check on viral studies, still unable to wean off of supplemental oxygen with O2 sats 90% off and on supplemental oxygen at 2 L Acute UTI (white blood cell count normal but left shift consistent with bacterial process)-patient with symptoms with urinary frequency and lower abdom inal tenderness, consistent with acute UTI-will start patient on oral antibiotics, culture pending Iron deficiency anemia-down slightly, monitor daily Labile hypertension with blood pressure elevated with orthostatics, on a good dose of beta-cathryn will increase her Imdur Coronary artery disease-no chest pain-increase Imdur as outlined above Drug-induced hyperglycemia-monitor daily GERD-continue with home medications Low back pain-continue with home medications Insomnia-continue with home medications Depression with anxiety-continue with home medications Admission status: Patient with acute acute hypoxia resulting from an acute exacerbation of COPD, meeting criteria for sepsis, unable to wean supplemental oxygen, medically necessary treatment will span more than 2 midnights. Inpatient status. Patient currently still requiring supplemental oxygen and IV steroids as well as frequent aerosol treatments which had to be increased today
[2024-09-15 07:52] LABS: Influenza Virus A Antigen Negative; Influenza Virus B Antigen Negative; Internal Control Within Normal Limits; SARS-CoV-2 Ag NEGATIVE (NEGATIVE)
--- NOTE | 2024-09-15 08:42 | CM.NOTE ---
Important Message From Medicare discussed with pt, pt verbalizes understanding and signs paper. Original given to pt and copy placed in pt's chart.
[2024-09-15] MEDS: TRAMADOL HCL 50 MG TABLET PO ×2 (08:44→17:14)
[2024-09-15] MEDS: VENLAFAXINE HCL ER 150 MG CAPSULE PO (08:45)
[2024-09-15] MEDS: METOCLOPRAMIDE HCL 10 MG TABLET PO ×4 (08:45→21:10)
[2024-09-15] MEDS: LEVOFLOXACIN 750 MG TABLET PO (08:45)
[2024-09-15] MEDS: ISOSORBIDE MONONITRATE 30 MG TAB.ER.24H 90 MG PO (08:45)
[2024-09-15] MEDS: METOPROLOL SUCCINATE 50 MG TAB.ER.24H 100 MG PO ×2 (08:45→21:10)
[2024-09-15] MEDS: ACETAMINOPHEN 500 MG TABLET 1000 MG PO ×3 (08:46→23:55)
[2024-09-15] MEDS: CETIRIZINE HCL 10 MG TABLET PO (08:46)
[2024-09-15] MEDS: METHYLPREDNISOLONE SOD SUCC PF 40 MG/ML VIAL IVP ×3 (08:46→23:56)
[2024-09-15] MEDS: GABAPENTIN 300 MG CAPSULE 600 MG PO (08:46)
[2024-09-15] MEDS: PANTOPRAZOLE SODIUM 40 MG TABLET.DR PO (08:46)
[2024-09-15] MEDS: POTASSIUM CHLORIDE 10 MEQ ER TABLET PO ×2 (08:46→21:10)
[2024-09-15] MEDS: VENLAFAXINE HCL ER 75 MG CAPSULE PO (08:46)
[2024-09-15] MEDS: METHOCARBAMOL 500 MG TABLET PO ×2 (08:52→17:14)
[2024-09-15] MEDS: BENZONATATE 100 MG CAPSULE 200 MG PO ×3 (08:52→23:55)
--- NOTE | 2024-09-15 13:03 | CM.NOTE ---
Julian johnson sent to Dr. Sanderson, update on PT and OT recommendations. After speaking with pt regarding recommendations she would prefer outpatient PT.
[2024-09-15] MEDS: LIDOCAINE 5% PATCH 1 PATCH TOPICAL (13:40)
--- NOTE | 2024-09-15 16:16 | NUTR.NU ---
Pt was admitted 09/13/24 d/t fall, UTI, COPD, hypoxia, CAD, anemia. Abnormal labs indicate anemia, hyperglycemia, impaired renal function. PO intakes of regular diet are 100%. Encourage fluids and PRO foods. Will continue to follow PRN.
[2024-09-15] MEDS: ENOXAPARIN SODIUM 40 MG/0.4 ML SYRINGE SUBQ (21:08)
[2024-09-15] MEDS: MONTELUKAST SODIUM 10 MG TABLET PO (21:10)
[2024-09-15] MEDS: GABAPENTIN 400 MG CAPSULE 1200 MG PO (21:11)
[2024-09-15] MEDS: TEMAZEPAM 15 MG CAPSULE 30 MG PO (23:55)
[2024-09-16] VITALS (13 sets, daily range): BP systolic 122–148; BP diastolic 65–75; PULSE 67–81; TEMP 36.6–36.9; O2SAT 90–94
[2024-09-16] MEDS: IPRATROPIUM/ALBUTEROL SULFATE 3 ML AMPUL.NEB IH ×3 (03:57→11:30)
[2024-09-16 05:35] LABS: Basophils Percent Auto 0.1 % (0.2-2.0); Hematocrit 34.6 % (36.0-48.0); Immature Granulocytes Abs Auto 0.04 10^3/uL (0.00-0.03); Immature Granulocytes Pct Auto 0.6 % (0.0-0.5); Lymphocytes Absolute Auto 0.5 10^3/uL (1.2-3.8); Lymphocytes Percent Auto 7.6 % (20.5-60.0); Mean Corpuscular HGB Conc 31.8 g/dL (29.9-35.2); Mean Corpuscular Hemoglobin 32.4 pg (26.7-34.0); Mean Corpuscular Volume 101.8 fL (81.0-99.0); Mean Platelet Volume 12.1 fL (9.5-13.5); Monocytes Absolute Auto 0.3 10^3/uL (0.3-0.8); Monocytes Percent Auto 4.4 % (1.7-12.0); Neutrophils Absolute Auto 5.9 10^3/uL (1.4-6.5); Neutrophils Percent Auto 87.3 % (43.0-75.0); Platelet Count 219 10^3/uL (150-450); Red Cell Distribution Width 12.7 % (11.0-15.0); White Blood Count 6.8 10^3/uL (4.0-11.0)
[2024-09-16 05:50] LABS: Anion Gap 16.4; BUN Creatinine Ratio 35.8; Carbon Dioxide 22.3 mmol/L (21.0-32.0); Chloride 106 mmol/L (98-107); Estimated GFR (African America 54 (>=60 mL/min/1.73m^2); Estimated GFR (Non-African Ame 45 (>=60 mL/min/1.73m^2); Glucose 143 mg/dL (74-106); Potassium 4.7 mmol/L (3.5-5.1); Sodium 140 mmol/L (136-145)
--- NOTE | 2024-09-16 07:17 | P.DS_ITS ---
DS: Providers Provider Date of admission: 09/14/24 09:45 Primary care physician: Bill Sanderson MD Consults: 09/14/24 09:00 Occupational Therapy Eval and Treat Routine Reason for consultation: Falls, weakness Has provider been notified: No Physical Therapy Eval and Treat Routine Reason for consultation: Falls, weakness Has provider been notified: No DS: Diagnosis Discharge Diagnosis (1) Acute exacerbation of chronic obstructive pulmonary disease: (2) Multiple falls: (3) Acute hypoxic respiratory failure: (4) Emphysema lung: Qualifiers: Emphysema type: unspecified Qualified Code(s): J43.9 - Emphysema, uns pecified (5) Physical deconditioning: (6) Acute chest wall pain: (7) Low back pain: (8) Anxiety: (9) Hypertension: Qualifiers: Hypertension type: primary hypertension Qualified Code(s): I10 - Essential (primary) hypertension (10) GERD (gastroesophageal reflux disease): Qualifiers: Esophagitis presence: esophagitis presence not specified Qualified Code(s): K21.9 - Gastro-esophageal reflux disease without esophagitis (11) Acute UTI: (12) Iron deficiency anemia: (13) Drug-induced hyperglycemia: (14) Respiratory distress: (15) Coronary artery disease: (16) Depression: Plan Admission findings: Uncontrolled hypertension, sinus tachycardia, respiratory distress, acute hypoxia with O2 sat of 77% on room air, meeting criteria for sepsis (tachycardia, respiratory distress, known infectious source of lungs and possibly urine) Acute exacerbation of COPD possible viral, resulting in acute hypoxia with O2 sat of 77% and sepsis-hypoxia resolved on day 3, stable for discharge if ambulating safely Acute UTI (white blood cell count normal but left shift consistent with bacterial process)-culture pending Iron deficiency anemia-stable at discharge Labile hypertension with blood pressure elevated with orthostatics, on a good dose of beta-cathryn will increase her Imdur in the improved Coronary artery disease-no chest pain-increase Imdur as outlined above Drug-induced hyperglycemia-improving with decreased dose of steroids GERD-continue with home medications Low back pain-continue with home medications Insomnia-continue with home medications Depression with anxiety-continue with home medications Admission status: Patient with acute acute hypoxia resulting from an acute exacerbation of COPD, meeting criteria for sepsis, unable to wean supplemental oxygen, medically necessary treatment will span more than 2 midnights. Inpatient status. Patient currently still requiring supplemental oxygen and IV steroids as well as frequent aerosol treatments which had to be increased today ? DS: Summary Hospital Course Hospital Course: Patient admitted with Uncontrolled hypertension, sinus tachycardia, respiratory distress, acute hypoxia with O2 sat of 77% on room air, meeting criteria for sepsis (tachycardia, respiratory distress, known infectious source of lungs and possibly urine). She had further hypoxia on day 2, overnight last night she did much better, no longer hypoxic. Was hypoxia resolved on day 3, improving COPD exacerbation, lung exam also much improved, urine cultures pending, if patient ambulates safely with no need for supplemental oxygen she will be discharged home in improving condition. Medications see list. Follow-up with me in the office in 2 days. Time Spent with Patient Time attestation: Total time spent providing and/or coordinating discharge services: Exam Constitutional Vital Signs, click to edit/add: Last Vital Signs Temp 97.8 F 09/16/24 04:00 Pulse 69 09/16/24 06:14 Resp 16 09/16/24 04:00 BP 148/75 H 09/16/24 04:00 Pulse Ox 90 L 09/16/24 04:00 O2 Del Method Room Air 09/16/24 04:00 O2 Flow Rate 1 09/15/24 15:04 Documenting provider has reviewed patient's vital signs: yes Common normals: no apparent distress Chest Common normals: inspection of chest normal Respiratory Common normals: normal respiratory effort, no use of accessory muscles and clear to auscultation bilaterally (Much improved from previous day) Cardio Common normals: regular rate and no murmurs GI Common normals: Normal to inspection, nondistended, normoactive bowel sounds present, soft to palpation and non-tender (Tenderness resolved from previous day) DS: Data Data Completed and Pending Labs on day of discharge: Labs from last 24 hours 09/16/24 09/15/24 05:16 07:36 WBC 6.8 RBC 3.40 L Hgb 11.0 L Hct 34.6 L MCV 101.8 H MCH 32.4 MCHC 31.8 RDW 12.7 Plt Count 219 MPV 12.1 Neut % (Auto) 87.3 H Lymph % (Auto) 7.6 L [place] % (Auto) 4.4 Eos % (Auto) 0.0 L Baso % (Auto) 0.1 L Neut # (Auto) 5.9 Lymph # (Auto) 0.5 L [place] # (Auto) 0.3 Eos # (Auto) 0.0 Baso # (Auto) 0.0 Abs Immat Gran (auto) 0.04 H Imm/Tot Granulo (auto) 0.6 H Sodium 140 Potassium 4.7 Chloride 106 Carbon Dioxide 22.3 Anion Gap 16.4 BUN 43.0 H Creatinine 1.20 H Est GFR ( Amer) 54 L Est GFR (Non-Af Amer) 45 L BUN/Creatinine Ratio 35.8 Glucose 143 H Calcium 9.0 Influenza Type A Ag Negative Influenza Type B Ag Negative SARS-CoV-2 Ag (CV2AG) Negative Discharge Plan Discharge Disposition: Home Health Service Discharge Medications: New montelukast 10 mg Tablet 10 mg PO QHS Qty: 30 11RF levofloxacin 750 mg Tablet 750 mg PO QD Qty: 10 0RF prednisone 10 mg tablet 40 mg PO DAILY Qty: 32 0RF Rx Instructions: 4/day for 3 days, 3/day for 3 days, 2/day for 3 days, 1/day for 3 days, 1/2 /day for 4 days benzonatate 200 mg capsule 200 mg PO TID PRN (Reason: cough) Qty: 30 11RF Continued gabapentin 600 mg tablet 600 mg PO QAM methocarbamol 500 mg tablet 500 mg PO Q8H PRN (Reason: muscle pain) Qty: 10 0RF tramadol 50 mg tablet 50 mg PO Q8H PRN (Reason: pain) Qty: 14 0RF albuterol sulfate 90 mcg/actuation HFA aerosol inhaler 2 inh INHALATION Q6H PRN (Reason: shortness of breath or wheezing) cetirizine 10 mg tablet 10 mg PO DAILY gabapentin 600 mg tablet 1,200 mg PO .qhs isosorbide mononitrate 60 mg tablet extended release 24 hr 60 mg PO .q24 metoprolol succinate 100 mg tablet extended release 24 hr 100 mg PO Q12H metoclopramide HCl 10 mg tablet 10 mg PO .COMPLEX Rx Instructions: 10 mg orally before meals at at bedtime; pantoprazole 40 mg tablet,delayed release (DR/EC) 40 mg PO DAILY potassium chloride 10 mEq tablet,ER particles/crystals 10 meq PO BID venlafaxine 150 mg capsule,extended release 24hr 150 mg PO DAILY venlafaxine 75 mg capsule,extended release 24hr 75 mg PO DAILY diazepam 2 mg tablet 2 mg PO TID PRN (Reason: anxiety) temazepam 30 mg capsule 30 mg PO QPM PRN (Reason: sleep) ondansetron 4 mg tablet,disintegrating 4 mg PO QID PRN (Reason: nausea and vomiting) Print Language: Tamazight Forms: Portal Instructions
--- NOTE | 2024-09-16 08:30 | CM.NOTE ---
Spoke with Dr. Sanderson regarding outpatient PT, order received from Dr. Sanderson and given to pt.
[2024-09-16] MEDS: ISOSORBIDE MONONITRATE 30 MG TAB.ER.24H 90 MG PO (08:42)
[2024-09-16] MEDS: LEVOFLOXACIN 750 MG TABLET PO (08:43)
[2024-09-16] MEDS: METHOCARBAMOL 500 MG TABLET PO (08:43)
[2024-09-16] MEDS: METOPROLOL SUCCINATE 50 MG TAB.ER.24H 100 MG PO (08:43)
[2024-09-16] MEDS: TRAMADOL HCL 50 MG TABLET PO (08:43)
[2024-09-16] MEDS: VENLAFAXINE HCL ER 150 MG CAPSULE PO (08:43)
[2024-09-16] MEDS: METOCLOPRAMIDE HCL 10 MG TABLET PO ×2 (08:43→13:33)
[2024-09-16] MEDS: BENZONATATE 100 MG CAPSULE 200 MG PO (08:43)
[2024-09-16] MEDS: GABAPENTIN 300 MG CAPSULE 600 MG PO (08:43)
[2024-09-16] MEDS: POTASSIUM CHLORIDE 10 MEQ ER TABLET PO (08:43)
[2024-09-16] MEDS: VENLAFAXINE HCL ER 75 MG CAPSULE PO (08:43)
[2024-09-16] MEDS: PANTOPRAZOLE SODIUM 40 MG TABLET.DR PO (08:43)
[2024-09-16] MEDS: CETIRIZINE HCL 10 MG TABLET PO (08:44)
[2024-09-16] MEDS: METHYLPREDNISOLONE SOD SUCC PF 40 MG/ML VIAL IVP (08:44)
--- NOTE | 2024-09-16 10:11 | PT.DAILY ---
Physical Therapy Daily Note PT Daily Note/Assess Start: 09/15/24 09:27 Freq: Status: Active Protocol: Document 09/16/24 09:40 MONICA (Rec: 09/16/24 10:11 MONICA [id number]) Physical Therapy Daily Note/Assessment Time In/Time Out Time In 09:40 Time Out 09:52 Subjective Subjective Reports feeling better, ready to DC home per patient. Would prefer OP vs HH due to moving. Therapeutic Activity Time Therapeutic Activity 10 Minutes (minutes) Therapeutic Activity 1 Units Therapeutic Activity Treatment Bed Mobility Ability Independent Chair Transfer Modified Independent Ability Therapeutic Activity Gait 120' with RW SBA. SPO2 maintains around 88% with a Comments few short drops to 84-86 percent but would quickly recover. SPO2 90 percent post ambulation. Total Physical Therapy Time Total Therapy 10 Minutes Total Physical 1 Therapy Units Summary Daily Note Summary Improved ability with gait. Overall SPO2 maintained at 88 percent on room air. Patient demonstrated improved strength as well. Patient in room with OT for self care post RX.
[2024-09-16] MEDS: LIDOCAINE 5% PATCH 1 PATCH TOPICAL (13:35)
--- NOTE | 2024-09-17 14:46 | CM.NOTE ---
1st attempt. No answer
--- NOTE | 2024-09-18 12:06 | CM.NOTE ---
Urine culture ecoli- pt discharged on Levofloxacin. Dr. Maria E singer.
--- NOTE | 2024-09-22 13:58 | CM.DCFOLLOWU ---
09/22-Readmitted to hospital.
== END 2024-09-16 15:46 | disposition home or self-care (01) | DRG 871 ==
LOC: ER 19:53 → MS 21:38
PROVIDERS: Emergency Medicine; Hospitalist; Registered Nurse; Admitting Provider Family Medicine; Emergency Provider Emergency Medicine; PCP Family Medicine; Visit Provider Family Medicine
DX: A41.51 Sepsis due to Escherichia coli [E. coli] (principal); J96.01 Acute respiratory failure with hypoxia; N39.0 Urinary tract infection, site not specified; J43.9 Emphysema, unspecified; K44.9 Diaphragmatic hernia without obstruction or gangrene; Z91.81 History of falling; Z79.899 Other long term (current) drug therapy; K21.9 Gastro-esophageal reflux disease without esophagitis; I10 Essential (primary) hypertension; Z90.49 Acquired absence of other specified parts of digestive tract; Z90.710 Acquired absence of both cervix and uterus; Z96.643 Presence of artificial hip joint, bilateral; Z96.653 Presence of artificial knee joint, bilateral; F17.210 Nicotine dependence, cigarettes, uncomplicated; R07.89 Other chest pain; M54.50 Low back pain, unspecified; D50.9 Iron deficiency anemia, unspecified; I25.10 Atherosclerotic heart disease of native coronary artery without angina pectoris; F32.A Depression, unspecified; R73.9 Hyperglycemia, unspecified; T50.905A Adverse effect of unspecified drugs, medicaments and biological substances, initial encounter; G47.00 Insomnia, unspecified; F41.8 Other specified anxiety disorders
CPT/HCPCS: 36415; 71045; 71275; 80048; 80053; 81001; 82948; 83605; 83735; 83880; 84484; 85025; 85378; 85610; 87040; 87086; 87088; 87186; 87804; 87811; 93005; 94640; 94667; 94668; 94761; 96372; 96374; 96376; 97161; 97165; 97530; 97535; 99285; G0378; J1650; J2919; Q9967

== ENCOUNTER 2024-09-21 19:32 | Inpatient (IN) | payer MEDICARE, OTHER, SELFPAY ==
[2024-09-21] VITALS (30 sets, daily range): BP systolic 76–94; BP diastolic 37–68; PULSE 73–80; TEMP 37.1; O2SAT 86–97; BMI 24.0
--- OUTSIDE RECORDS SUMMARY | 2024-09-21 19:41 | XMS_ITS | CCD ---
Author Organization [facility] Care Team Providers Care Head Of Marketing Name Role Phone CALOS SMITH JR. Referring [...] ., DR SIMS Primary Care Unavailable FAWWAD, AGNELO H Admitting Unavailable HOY ., DR SIMS [...] Unavailable HOY, LEVI Primary Care Unavailable MIL GARZA~[id number], [place] SEA GARZA~[phone] MIL Referring Unavailable HOY, LEVI Primary Care Unavailable EMMEL, BRITTANY Referring Unavailable HOY, LEVI Primary Care Unavailable VENKATAREDWIGEN Referring Unavailable EMMEL, BRITTANY Attending Unavailable HOY, LEVI Primary Care Unavailable EMMEL, BRITTANY Attending Unavailable HOY, LEVI Primary Care Unavailable EMMEL, BRITTANY Referring Unavailable JOAQUIN WOODINE Attending Unavailable HOY, LEVI Primary Care Unavailable EMMEL, BRITTANY Referring Unavailable EMMEL, BIRTTANY Attending Unavailable HOY, LEVI Primary Care Unavailable EMMEL, BRITTANY Referring Unavailable HOY, LEVI Primary Care Unavailable AISHA CAST Referring Unavailable HOY, LEVI Primary Care Unavailable LUIS, CALOS Admitting Unavailable LUIS, CALOS Attending Unavailable [facility], [facility] Unavailable Kimani Reyes Attending Unavailable Kimani Reyes Admitting Unavailable Allergies Allergy Classification Reported Allergen(s) Allergy Type Date of Onset Reaction(s) Facility (5 sources) ceFAZolin; Translations: [CEFAZOLIN] Drug Allergy 1 Anaphylaxis [facility] (5 sources) Morphine; Translations: [MORPHINE] Drug Allergy 1 Hives, Itching [facility] (8 sources) NSAIDs; Translations: [NSAIDS (NON-STEROIDAL ANTI-INFLAMMATOR Y DRUG)] Drug Allergy 3 Anaphylaxis [facility] (5 sources) Vancomycin; Translations: [VANCOMYCIN] Drug Allergy 1 Other [facility] (1 source) Aspirin Drug Allergy 0 [facility] (3 sources) ceFAZolin Drug Allergy 5 [facility] (1 source) Morphine Drug Allergy 0 The [facility] (2 sources) Morphine Drug Allergy 3 The [facility] (2 sources) Vancomycin Drug Allergy The [facility] Medications Current Medications Medication Drug Class(es) [...] 20 mg/ml oral solution (2 sources) Uncompetitive F-fwxnje-R-aspartate Receptor Antagonist, Sigma-1 Agonist End: 12-29-2021 take [...] Every 6 hours PRN, itching, Starting on Vyette 04/20/22 at 1652 Start: 01-03-2022 End: 01-06-2022 diphenhydrAMINE (BENADRYL) c apsule 25 mg docusate sodium 100 mg oral capsule (1 source) Start: 01-03-2022 End: 01-06-2022 docusate sodium (COLACE) capsule 100 mg docusate sodium 50 mg / [facility] 8.6 mg oral tablet (2 sources) Start: [...] at 0900 take 2 tablets by mo [facility] at bedtime gabapentin (NEURONTIN) 600 mg [...] release tablet 10 mg Start: 04-20-2022 End: 01-19-2023 oxyCODONE (ROXICODONE) immed iate release tablet 10 [...] Discharge) Start: 01-08-2021 take 1 tablet by [facility] every six hours as needed oxyCODONE (ROXICODONE) [...] Oxygen Therapy , Adult polyethylene glycol 3350 39088 mg powder for oral solution (6 sources) [...] administer immediately). take 1 capsule by mo ut twice daily potassium chloride (MICRO-K) 10 mEq [...] for nausea or vomiting. 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) drug therapy; Translations: [OTH CARBON CAPTURE POWER PLANT MANAGER CURRENT DRUG THERAPY] Onset: 08-25-2022 Episodic Other aftercare (1 source) half-way (current) use of anticoagulants; Translations: [SENIOR LIVING CURRNT USE ANTICOAGULANTS] Onset: 08-25-2022 Episodic Other [...] Test Name Value Interpretation Reference Range Facility Urine Cultureon 09-13-2024 Bacteria identified Cx Nom (U) ORGANISM: Escherichia coli (O:ESCCOL) [place] Count >100,000 Aerobic YUDY Charge (NMIC56) ---- SUSCEPTIBILITY --- ORGANISM: O:ESCCOL ANTIBIOTIC INTERPRETATION YUDY Amikacin S <16 Amoxacillin/K Clavulanate S <8 Ampicillin S <8 Ampicillin/Sulbactam S <4 Aztreonam S <4 Cefazolin S 4 Cefepime S <2 Ceftazidime S <1 Ceftazidime/Avibactam S <4 Ceftolozane/Tazobacta m S <2 Ceftriaxone S <1 Cefuroxime S 8 Ciprofloxacin S <0.25 Ertapenem S <0.5 Gentamicin S <2 Levofloxacin S <0.5 Meropenem S <1 Meropenem/Vaborbactam S <2 Nitrofurantoin S <32 Piperacillin/Tazobact am S <8 Tetracycline S <4 Tigecycline S <2 Tobramycin S <2 Trimethoprim/Sulfamet hoxazole S <0.5 S = SUSCEPTIBLE I = INTERMEDIATE R = RESISTANT BLANK = DATA NOT AVAILABLE, OR DRUG NOT ADVISABLE OR TESTED R* = RESISTANCE DUE TO EXTENDED SPECTRUM BETA-LACTAMASES ESBL = EXTENDED SPECTRUM BETA-LACTAMASE TFG = THYMIDINE-DEPENDENT STRAIN [place] = BETA-LACTAMASE POSITIVE IB = INDUCIBLE BETA-LACTAMASE. APPEARS IN PLACE OF 'S' WITH SPECIES KNOWN TO POSSESS INDUCIBLE BETA-LACTAMASES. POTENTIALLY THEY MAY BECOME RESISTANT TO ALL B-LACTAM DRUGS. PERFORMED BY: [facility] [address] [id number] PATHOLOGIST ASBESTOS HAZARD ABATEMENT WORKER KENZIE NICOLE M.D. Normal The [facility] Comment on above: Performed By: #### C UU #### [facility] [address] [id number] [facility] CRP [Mass/Vol]on 02-19-2023 C-Reactive Protein 1.0 mg/dL Normal 0.0-1.0 [facility] Comment on above: Performed By: #### 1 988-5 #### [facility] ([facility] LAB [address] [place] [address] ESR (Bld) [Velocity]on 02-19 Basophils (Bld) [#/Vol] 0.09 10*3/uL Normal 0.00-0.20 [facility] Comment on above: Performed By: #### 5 75-1 #### [facility] [address] [place] [address] Basophils/100 WBC (Bld) 1.1 % Normal 0.0-2.0 [facility] Comment on above: Performed By: #### 5 75-1 #### [facility] ([facility] [address] [place] [address] Eosinophils (Bld) [#/Vol] 0.17 10*3/uL Normal 0.00-0.70 [facility] Comment on above: Performed By: #### 5 75-1 #### [facility] [place] [facility] [address] [place] [address] Eosinophils/100 WBC (Bld) 2.0 % Normal 0.0-7.0 [facility] Comment on above: Performed By: #### 5 75-1 #### [facility] [place] [facility] [address] [place] [address] Erythrocyte distribution width (RBC) [Ratio] 13.5 % Normal 11.0-14.8 [facility] Comment on above: Performed By: #### 5 75-1 #### [facility] [place] [facility] [address] [place] [address] Hematocrit (Bld) [Volume fraction] 39.9 % Normal 34.3-47.9 [facility] Comment on above: Performed By: #### 5 75-1 #### [facility] [place] [facility] [address] [place] [address] Hemoglobin (Bld) [Mass/Vol] 12.7 g/dL Normal 12.0-16.0 [facility] Comment on above: Performed By: #### 5 75-1 #### [facility] [place] [facility] [address] [place] [address] Immature granulocytes (Bld) [#/Vol] 0.02 10*3/uL Normal 0.00-0.10 [facility] Comment on above: Performed By: #### 5 75-1 #### [facility] [place] [facility] [address] [place] [address] Immature granulocytes/100 WBC (Bld) 0.2 % Normal 0.0-1.2 [facility] Comment on above: Performed By: #### 5 75-1 #### [facility] [place] [facility] [address] [place] [address] Lymphocytes (Bld) [#/Vol] 2.55 10*3/uL Normal 1.00-4.80 [facility] Comment on above: Performed By: #### 5 75-1 #### [facility] [place] [facility] [address] [place] [address] Lymphocytes/100 WBC (Bld) 30.6 % Normal 17.9-49.6 [facility] Comment on above: Performed By: #### 5 75-1 #### [facility] [place] [facility] [place] [address] MCH 31.4 pcg Normal 27.0-34.0 [facility] Comment on above: Performed By: #### 5 75-1 #### [facility] [place] [facility] [address] [place] [address] MCHC (RBC) [Mass/Vol] 31.8 g/dL Normal 30.8-35.3 [facility] Comment on above: Performed By: #### 5 75-1 #### [facility] [place] [facility] [address] [place] [address] MCV (RBC) [Entitic vol] 98.5 fL High 80.0-97.0 [facility] Comment on above: Performed By: #### 5 75-1 #### [facility] [place] [facility] [address] [place] [address] Monocytes (Bld) [#/Vol] 0.57 10*3/uL Normal 0.00-0.90 [facility] Comment on above: Performed By: #### 5 75-1 #### [facility] [place] [facility] [address] [place] [address] Monocytes/100 WBC (Bld) 6.9 % Normal 0.0-12.0 [facility] Comment on above: Performed By: #### 5 75-1 #### [facility] [place] [facility] [address] [place] [address] Neutrophils Absolute 4.92 K/mcL Normal 1.80-7.70 [facility] Comment on above: Performed By: #### 5 75-1 #### [facility] [place] ([facility] [address] [place] [address] Neutrophils/100 WBC (Bld) 59.2 % Normal 38.1-75.5 [facility] Comment on above: Performed By: #### 5 75-1 #### [facility] [place] ([facility] [address] [place] [address] Platelet mean volume (Bld) [Entitic vol] 11.5 fL Normal 6.2-12.1 [facility] Comment on above: Performed By: #### 5 75-1 #### [facility] [place] [facility] [address] [place] [address] Platelets (Bld) [#/Vol] 262 10*3/uL Normal 142-424 [facility] Comment on above: Performed By: #### 5 75-1 #### [facility] [place] [facility] [address] [place] [address] RBC (Bld) [#/Vol] 4.05 10*6/uL Normal 3.74-5.34 [facility] Comment on above: Performed By: #### 5 75-1 #### [facility] [place] [facility] [address] [place] [address] WBC (Bld) [#/Vol] 8.3 10*3/uL Normal 4.6-10.2 [facility] Comment on above: Performed By: #### 5 75-1 #### [facility] [place] [facility] [address] [place] [address] CBC AUTO DIFFon 08-30-2022 BASO # 0.1 103/ul Normal 0.0-0.[address] [facility] Comment on above: Performed By: #### C BC #### [facility] [address] [place], [place] [address] Dr. Jeffrey Thomas Basophils/100 WBC (Bld) 0.9 % Normal 0.2-2.[address] [facility] Comment on above: Performed By: #### C BC #### [facility] [address] [place] [address] Dr. Jeffrey Thomas EO # 0.2 103/ul Normal 0.0-0.7 [facility] Comment on above: Performed By: #### C BC #### [facility] [address] [place] [address] Dr. Jeffrey Thomas Eosinophils/100 WBC (Bld) 3.9 % Normal 0.9-7.0 [facility] Comment on above: Performed By: #### C BC #### [facility] [address] [place] [address] Dr. Jeffrey Thomas Erythrocyte distribution width (RBC) [Ratio] 14.6 % Normal 11.0-15.[address] [facility] Comment on above: Performed By: #### C BC #### [facility] [address] [place] [address] Dr. Jeffrey Thomas Hematocrit (Bld) [Volume fraction] 32.7 % Critically low 36.0-48.[address] [facility] Comment on above: Performed By: #### C BC #### [facility] [address] [place] [address] Dr. Jeffrey Thomas Hemoglobin (Bld) [Mass/Vol] 10.3 g/dL Critically low 12.0-16.[address] [facility] Comment on above: Performed By: #### C BC #### [facility] [address] [place] [address] Dr. Jeffrey Thomas IG # 0.01 10e3/ul Normal 0.00-0.03 [facility] Comment on above: Performed By: #### C BC #### [facility] [address] [place] [address] Dr. Jeffrey Thomas IG % 0.2 % Normal 0.0-0.5 [facility] Comment on above: Performed By: #### C BC #### [facility] [address] [place] [address] Dr. Jeffrey Thomas LYMPH # 1.7 103/ul Normal 1.2-3.8 [facility] Comment on above: Performed By: #### C BC #### [facility] [address] [place] [address] Dr. Jeffrey Thomas Lymphocytes/100 WBC (Bld) 30.8 % Normal 20.5-60.0 [facility] Comment on above: Performed By: #### C BC #### [facility] [address] [place] [address] Dr. Jeffrey Thomas MANUAL DIFF REQ NO Normal [facility] Comment on above: Performed By: #### C BC #### [facility] [address] [place] [address] Dr. Jeffrey Thomas MCH (RBC) [Entitic mass] 30.2 pg Normal 26.7-34.[address] [facility] Comment on above: Performed By: #### C BC #### [facility] [address] [place] [address] Dr. Jeffrey Thomas MCHC (RBC) [Mass/Vol] 31.5 g/dL Normal 29.9-35.2 [facility] Comment on above: Performed By: #### C BC #### [facility] [address] [place] [address] Dr. Jeffrey Thomas MCV (RBC) [Entitic vol] 95.9 fL Normal 81.0-99.0 [facility] Comment on above: Performed By: #### C BC #### [facility] [address] [place] [address] Dr. Jeffrey Thomas MONO # 0.4 103/ul Normal 0.3-0.8 [facility] Comment on above: Performed By: #### C BC #### [facility] [address] [place] [address] Dr. Jeffrey Thomas Monocytes/100 WBC (Bld) 7.8 % Normal 1.7-12.0 [facility] Comment on above: Performed By: #### C BC #### [facility] [address] [place] [address] Dr. Jeffrey Thomas NEUT # 3.2 103/ul Normal 1.4-6.5 [facility] Comment on above: Performed By: #### C BC #### [facility] [address] [place] [address] Dr. Jeffrey Thomas Neutrophils/100 WBC (Bld) 56.4 % Normal 43.0-75.[address] [facility] Comment on above: Performed By: #### C BC #### [facility] [address] [place] [address] Dr. Jeffrey Thomas Platelet mean volume (Bld) [Entitic vol] 12.9 fL Normal 9.5-13.[address] [facility] Comment on above: Performed By: #### C BC #### [facility] [address] [place] [address] Dr. Jeffrey Thomas PLT 149 103/ul Critically low 150-450 [facility] Comment on above: Performed By: #### C BC #### [facility] [address] [place] [address] Dr. Jeffrey Thomas RBC 3.41 106/ul Critically low 4.20-5.40 [facility] Comment on above: Performed By: #### C BC #### [facility] [address] [place] [address] Dr. Jeffrey Thomas WBC 5.6 103/ul Normal 4.0-11.[address] [facility] Comment on above: Performed By: #### C BC #### [facility] [address] [place] [address] Dr. Jeffrey Thomas HEPATITIS PANEL, [facility] HBsAg Screen Negative Normal Negative [facility] Comment on above: Performed By: #### C MP #### [facility] [address] [place] [address] Dr. Jeffrey Thomas HCV AB Non-Reactive Normal Non Reactive [facility] Comment on above: Performed By: #### C MP #### [facility] [address] [place] [address] Dr. Jeffrey Thomas Hep A Ab, IgM Negative Normal Negative [facility] Comment on above: Performed By: #### C MP #### [facility] [address] [place] [address] Dr. Jeffrey Thomas Hep B Core Ab, IgM Negative Normal Negative [facility] Comment on above: Performed By: #### C MP #### [facility] [address] [place] [address] Dr. Jeffrey Thomas NM HEPATOBILIARY SCAN W [...] CASILLAS Date: 2022-08-30 07:[address] [facility] PROF 14(COMP METB)on 023 Albumin [Mass/Vol] 2.5 g/dL Critically low 3.4-5.0 Th e [facility] Comment on above: Performed By: #### T 4LC #### [facility] [address] [place] [address] Dr. Jeffrey Thomas Albumin/Globulin [Mass ratio] 0.9 {ratio} Normal [facility] Comment on above: Performed By: #### T 4LC #### [facility] [address] [place] [address] Dr. Jeffrey Thomas ALP [Catalytic activity/Vol] 97 U/L Normal 46-116 [facility] Comment on above: Performed By: #### T 4LC #### [facility] [address] [address] [address] Jeffrey Thomas ALT [Catalytic activity/Vol] 39 U/L Normal 14-[address] [facility] Comment on above: Performed By: #### T 4LC #### [facility] [address] [address] [address] Jeffrey Thomas Anion gap [Moles/Vol] 12.9 mmol/L Normal [facility] Comment on above: Performed By: #### T 4LC #### [facility] [address] [place] [address] Dr. Jeffrey Thomas AST [Catalytic activity/Vol] 19 U/L Normal 15-[address] [facility] Comment on above: Performed By: #### T 4LC #### [facility] [address] [place] [address] Dr. Jeffrey Thomas Bilirubin [Mass/Vol] 0.2 mg/dL Normal 0.2-1.[address] [facility] Comment on above: Performed By: #### T 4LC #### [facility] [address] [place] [address] Dr. Jeffrey Thomas Calcium [Mass/Vol] 8.2 mg/dL Critically low 8.5-10.[address] [facility] Comment on above: Performed By: #### T 4LC #### [facility] [address] [place] [address] Dr. Jeffrey Thomas Chloride [Moles/Vol] 111 mmol/L Critically high 98-[address] [facility] Comment on above: Performed By: #### T 4LC #### [facility] [address] [place] [address] Dr. Jeffrey Thomas CO2 [Moles/Vol] 24.2 mmol/L Normal 21.0-32.[address] [facility] Comment on above: Performed By: #### T 4LC #### [facility] [address] [place] [address] Dr. Jeffrey Thomas Creatinine [Mass/Vol] 1.05 mg/dL Critically high 0.55-1.[address] [facility] Comment on above: Performed By: #### T 4LC #### [facility] [address] [place] [address] Dr. Jeffrey Thomas EGFR-AF ECUADOREAN >60 Normal >=[address] [facility] Comment on above: Performed By: #### T 4LC #### [facility] [address] [place] [address] Dr. Jeffrey Thomas EGFR-NON AF ECUADOREAN 53 mL/min/1.73m2 Critically low >=[address] [facility] Comment on above: Performed By: #### T 4LC #### [facility] [address] [place] [address] Dr. Jeffrey Thomas Globulin (S) [Mass/Vol] 2.7 g/dL Normal [facility] Comment on above: Performed By: #### T 4LC #### [facility] [address] [place] [address] Dr. Jeffrey Thomas Glucose [Mass/Vol] 109 mg/dL Critically high 74-106 [facility] Comment on above: Performed By: #### T 4LC #### [facility] [address] [place] [address] Dr. Jeffrey Thomas Potassium [Moles/Vol] 4.1 mmol/L Normal 3.5-5.[address] [facility] Comment on above: Performed By: #### T 4LC #### [facility] [address] [place] [address] Dr. Jeffrey Thomas Protein [Mass/Vol] 5.2 g/dL Critically low 6.4-8.2 [facility] Comment on above: Performed By: #### T 4LC #### [facility] [address] [place] [address] Dr. Jeffrey Thomas Sodium [Moles/Vol] 144 mmol/L Normal 136-145 [facility] Comment on above: Performed By: #### T 4LC #### [facility] [address] [place] [address] Dr. Jeffrey Thomas Urea nitrogen [Mass/Vol] 11.0 mg/dL Normal 7.0-18.[address] [facility] Comment on above: Performed By: #### T 4LC #### [facility] [address] [place] [address] Dr. Jeffrey Thomas Urea nitrogen/Creatinine [Mass ratio] 10.5 mg/mg Normal [facility] Comment on above: Performed By: #### T 4LC #### [facility] [address] [place] [address] Dr. Jeffrey Thomas CBC AUTO DIFFon 08-29-2022 BASO # 0.1 103/ul Normal 0.0-0.[address] [facility] Comment on above: Performed By: #### T 4LC #### [facility] [address] [place] [address] Dr. Jeffrey Thomas Basophils/100 WBC (Bld) 1.2 % Normal 0.2-2.[address] [facility] Comment on above: Performed By: #### T 4LC #### [facility] [facility] [address] [place] [address] Dr. Jeffrey Thomas EO # 0.2 103/ul Normal 0.0-0.7 [facility] Comment on above: Performed By: #### T 4LC #### [facility] [address] [place] [address] Dr. Jeffrey Thomas Eosinophils/100 WBC (Bld) 4.1 % Normal 0.9-7.[address] [facility] Comment on above: Performed By: #### T 4LC #### [facility] [address] [place] [address] Dr. Jeffrey Thomas Erythrocyte distribution width (RBC) [Ratio] 14.6 % Normal 11.0-15.[address] [facility] Comment on above: Performed By: #### T 4LC #### [facility] [address] [place] [address] Dr. Jeffrey Thomas Hematocrit (Bld) [Volume fraction] 33.6 % Critically low 36.0-48.[address] [facility] Comment on above: Performed By: #### T 4LC #### [facility] [address] [place] [address] Dr. Jeffrey Thomas Hemoglobin (Bld) [Mass/Vol] 10.3 g/dL Critically low 12.0-16.0 [facility] Comment on above: Performed By: #### T 4LC #### [facility] [address] [place] [address] Dr. Jeffrey Thomas IG # 0.01 10e3/ul Normal 0.00-0.[address] [facility] Comment on above: Performed By: #### T 4LC #### [facility] [address] [place] [address] Dr. Jeffrey Thomas IG % 0.2 % Normal 0.0-0.[address] [facility] Comment on above: Performed By: #### T 4LC #### [facility] [address] [place] [address] Dr. Jeffrey Thomas LYMPH # 1.7 103/ul Normal 1.2-3.[address] [facility] Comment on above: Performed By: #### T 4LC #### [facility] [address] [place] [address] Dr. Jeffrey Thomas Lymphocytes/100 WBC (Bld) 34.4 % Normal 20.5-60.[address] [facility] Comment on above: Performed By: #### T 4LC #### [facility] [address] [place] [address] Dr. Jeffrey Thomas MANUAL DIFF REQ NO Normal [facility] Comment on above: Performed By: #### T 4LC #### [facility] [address] [place] [address] Dr. Jeffrey Thomas MCH (RBC) [Entitic mass] 29.5 pg Normal 26.7-34.[address] [facility] Comment on above: Performed By: #### T 4LC #### [facility] [address] [place] [address] Dr. Jeffrey Thomas MCHC (RBC) [Mass/Vol] 30.7 g/dL Normal 29.9-35.[address] [facility] Comment on above: Performed By: #### T 4LC #### [facility] [address] [place] [address] Dr. Jeffrey Thomas MCV (RBC) [Entitic vol] 96.3 fL Normal 81.0-99.0 [facility] Comment on above: Performed By: #### T 4LC #### [facility] [address] [place] [address] Dr. Jeffrey Thomas MONO # 0.4 103/ul Normal 0.3-0.[address] [facility] Comment on above: Performed By: #### T 4LC #### [facility] [address] [place] [address] Dr. Jeffrey Thomas Monocytes/100 WBC (Bld) 8.2 % Normal 1.7-12.[address] [facility] Comment on above: Performed By: #### T 4LC #### [facility] [address] [place] [address] Dr. Jeffrey Thomas NEUT # 2.5 103/ul Normal 1.4-6.[address] [facility] Comment on above: Performed By: #### T 4LC #### [facility] [address] [place] [address] Dr. Jeffrey Thomas Neutrophils/100 WBC (Bld) 51.9 % Normal 43.0-75.[address] [facility] Comment on above: Performed By: #### T 4LC #### [facility] [address] [place] [address] Dr. Jeffrey Thomas Platelet mean volume (Bld) [Entitic vol] 12.5 fL Normal 9.5-13.[address] [facility] Comment on above: Performed By: #### T 4LC #### [facility] [address] [place] [address] Dr. Jeffrey Thomas PLT 157 103/ul Normal 150-[address] [facility] Comment on above: Performed By: #### T 4LC #### [facility] [address] [place] [address] Dr. Jeffrey Thomas RBC 3.49 106/ul Critically low 4.20-5.40 [facility] Comment on above: Performed By: #### T 4LC #### [facility] [address] [place] [address] Dr. Jeffrey Thomas WBC 4.9 103/ul Normal 4.0-11.[address] [facility] Comment on above: Performed By: #### T 4LC #### [facility] [address] [place] [address] Dr. Jeffrey Thomas PROF 14(COMP METB)on 023 Albumin [Mass/Vol] 2.6 g/dL Critically low 3.4-5.[address] [facility] Comment on above: Performed By: #### C MP #### [facility] [address] [place], [place] [id number] Dr. Jeffrey Thomas Albumin/Globulin [Mass ratio] 1.0 {ratio} Normal [facility] Comment on above: Performed By: #### C MP #### [facility] [address] [place] [address] Dr. Jeffrey Thomas ALP [Catalytic activity/Vol] 94 U/L Normal 46-[address] [facility] Comment on above: Performed By: #### C MP #### [facility] [address] [place] [address] Dr. Jeffrey Thoams ALT [Catalytic activity/Vol] 53 U/L Normal 14-[address] [facility] Comment on above: Performed By: #### C MP #### [facility] [address] [place] [address] Dr. Jeffrey Thomas Anion gap [Moles/Vol] 11.2 mmol/L Normal [facility] Comment on above: Performed By: #### C MP #### [facility] [address] [place] [address] Dr. Jeffrey Thomas AST [Catalytic activity/Vol] 26 U/L Normal 15-[address] [facility] Comment on above: Performed By: #### C MP #### [facility] [address] [place] [address] Dr. Jeffrey Thomas Bilirubin [Mass/Vol] 0.2 mg/dL Normal 0.2-1.[address] [facility] Comment on above: Performed By: #### C MP #### [facility] [address] [place] [address] Dr. Jeffrey Thomas Calcium [Mass/Vol] 8.2 mg/dL Critically low 8.5-10.1 [facility] Comment on above: Performed By: #### C MP #### [facility] [address] [place] [address] Dr. Jeffrey Thomas Chloride [Moles/Vol] 114 mmol/L Critically high 98-[address] [facility] Comment on above: Performed By: #### C MP #### [facility] [address] [place] [address] Dr. Jeffrey Thomas CO2 [Moles/Vol] 23.1 mmol/L Normal 21.0-32.[address] [facility] Comment on above: Performed By: #### C MP #### [facility] [address] [address] [address] Jeffrey Thomas Creatinine [Mass/Vol] 0.95 mg/dL Normal 0.55-1.[address] [facility] Comment on above: Performed By: #### C MP #### [facility] [address] [address] [address] Jeffrey Thomas EGFR-AF ECUADOREAN >60 Normal >=[address] [facility] Comment on above: Performed By: #### C MP #### [facility] [address] [address] [address] Jeffrey Thomas EGFR-NON AF ECUADOREAN 59 mL/min/1.73m2 Critically low >=[address] [facility] Comment on above: Performed By: #### C MP #### [facility] [address] [place] [address] Dr. Jeffrey Thomas Globulin (S) [Mass/Vol] 2.6 g/dL Normal [facility] Comment on above: Performed By: #### C MP #### [facility] [address] [address] [address] Jeffrey Thomas Glucose [Mass/Vol] 87 mg/dL Normal 74-106 [facility] Comment on above: Performed By: #### C MP #### [facility] [address] [address] [address] Jeffrey Thomas Potassium [Moles/Vol] 4.3 mmol/L Normal 3.5-5.[address] [facility] Comment on above: Performed By: #### C MP #### [facility] [address] [address] [address] Jeffrey Thomas Protein [Mass/Vol] 5.2 g/dL Critically low 6.4-8.2 [facility] Comment on above: Performed By: #### C MP #### [facility] [address] [place] [address] Dr. Jeffrey Thomas Sodium [Moles/Vol] 144 mmol/L Normal 136-145 [facility] Comment on above: Performed By: #### C MP #### [facility] [address] [address] [address] Jeffrey Thomas Urea nitrogen [Mass/Vol] 10.0 mg/dL Normal 7.0-18.[address] [facility] Comment on above: Performed By: #### C MP #### [facility] [address] [place] [address] Dr. Jeffrey Thomas Urea nitrogen/Creatinine [Mass ratio] 10.5 mg/mg Normal [facility] Comment on above: Performed By: #### C MP #### [facility] [address] [place] [address] Dr. Jeffrey Thomas CBC AUTO DIFFon 08-28-2022 BASO # 0.1 103/ul Normal 0.0-0.[address] [facility] Comment on above: Performed By: #### T 4LC #### [facility] [address] [place] [address] Dr. Jeffrey Thomas Basophils/100 WBC (Bld) 1.2 % Normal 0.2-2.[address] [facility] Comment on above: Performed By: #### T 4LC #### [facility] [address] [place] [address] Dr. Jeffrey Thomas EO # 0.3 103/ul Normal 0.0-0.[address] [facility] Comment on above: Performed By: #### T 4LC #### [facility] [address] [place] [address] Dr. Jeffrey Thomas Eosinophils/100 WBC (Bld) 4.4 % Normal 0.9-7.[address] [facility] Comment on above: Performed By: #### T 4LC #### [facility] [address] [place] [address] Dr. Jeffrey Thomas Erythrocyte distribution width (RBC) [Ratio] 14.8 % Normal 11.0-15.[address] [facility] Comment on above: Performed By: #### T 4LC #### [facility] [address] [place] [address] Dr. Jeffrey Thomas Hematocrit (Bld) [Volume fraction] 33.5 % Critically low 36.0-48.[address] [facility] Comment on above: Performed By: #### T 4LC #### [facility] [address] [place] [address] Dr. Jeffrey Thomas Hemoglobin (Bld) [Mass/Vol] 10.1 g/dL Critically low 12.0-16.[address] [facility] Comment on above: Performed By: #### T 4LC #### [facility] [address] [place] [address] Dr. Jeffrey Thomas IG # 0.01 10e3/ul Normal 0.00-0.[address] [facility] Comment on above: Performed By: #### T 4LC #### [facility] [address] [place] [address] Dr. Jeffrey Thomas IG % 0.2 % Normal 0.0-0.[address] [facility] Comment on above: Performed By: #### T 4LC #### [facility] [address] [place] [address] Dr. Jeffrey Thomas LYMPH # 2.1 103/ul Normal 1.2-3.[address] [facility] Comment on above: Performed By: #### T 4LC #### [facility] [address] [place] [address] Dr. Jeffrey Thomas Lymphocytes/100 WBC (Bld) 35.1 % Normal 20.5-60.[address] [facility] Comment on above: Performed By: #### T 4LC #### [facility] [address] [place] [address] Dr. Jeffrey Thomas MANUAL DIFF REQ NO Normal [facility] Comment on above: Performed By: #### T 4LC #### [facility] [address] [place] [address] Dr. Jeffrey Thomas MCH (RBC) [Entitic mass] 29.6 pg Normal 26.7-34.[address] [facility] Comment on above: Performed By: #### T 4LC #### [facility] [address] [place] [address] Dr. Jeffrey Thomas MCHC (RBC) [Mass/Vol] 30.1 g/dL Normal 29.9-35.[address] [facility] Comment on above: Performed By: #### T 4LC #### [facility] [address] [address] [address] Jeffrey Thomas MCV (RBC) [Entitic vol] 98.2 fL Normal 81.0-99.[address] [facility] Comment on above: Performed By: #### T 4LC #### [facility] [address] [address] [address] Jeffrey Thomas MONO # 0.5 103/ul Normal 0.3-0.[address] [facility] Comment on above: Performed By: #### T 4LC #### [facility] [address] [place] [address] Dr. Jeffrey Thomas Monocytes/100 WBC (Bld) 7.7 % Normal 1.7-12.[address] [facility] Comment on above: Performed By: #### T 4LC #### [facility] [address] [place] [address] Dr. Jeffrey Thomas NEUT # 3.1 103/ul Normal 1.4-6.[address] [facility] Comment on above: Performed By: #### T 4LC #### [facility] [address] [place] [address] Dr. Jeffrey Thomas Neutrophils/100 WBC (Bld) 51.4 % Normal 43.0-75.[address] [facility] Comment on above: Performed By: #### T 4LC #### [facility] [address] [place] [address] Dr. Jeffrey Thomas Platelet mean volume (Bld) [Entitic vol] 12.1 fL Normal 9.5-13.[address] [facility] Comment on above: Performed By: #### T 4LC #### [facility] [address] [place] [address] Dr. Jeffrey Thomas PLT 180 103/ul Normal 150-450 [facility] Comment on above: Performed By: #### T 4LC #### [facility] [address] [place] [address] Dr. Jeffrey Thomas RBC 3.41 106/ul Critically low 4.20-5.40 [facility] Comment on above: Performed By: #### T 4LC #### [facility] [address] [address] [address] Jeffrey Thomas WBC 6.0 103/ul Normal 4.0-11.[address] [facility] Comment on above: Performed By: #### T 4LC #### [facility] [address] [place] [address] Dr. Jeffrey Thomas PROF 14(COMP METB)on 023 Albumin [Mass/Vol] 2.8 g/dL Critically low 3.4-5.[address] [facility] Comment on above: Performed By: #### C MP #### [facility] [address] [place] [address] Dr. Jeffrey Thomas Albumin/Globulin [Mass ratio] 1.1 {ratio} Normal [facility] Comment on above: Performed By: #### C MP #### [facility] [address] [place] [address] Dr. Jeffrey Thomas ALP [Catalytic activity/Vol] 96 U/L Normal 46-[address] [facility] Comment on above: Performed By: #### C MP #### [facility] [address] [place] [address] Dr. Jeffrey Thomas ALT [Catalytic activity/Vol] 72 U/L Critically high 14-[address] [facility] Comment on above: Performed By: #### C MP #### [facility] [address] [place] [address] Dr. Jeffrey Thomas Anion gap [Moles/Vol] 12.8 mmol/L Normal [facility] Comment on above: Performed By: #### C MP #### [facility] [address] [place] [address] Dr. Jeffrey Thomas AST [Catalytic activity/Vol] 39 U/L Critically high 15-[address] [facility] Comment on above: Performed By: #### C MP #### [facility] [address] [place] [address] Dr. Jeffrey Thomas Bilirubin [Mass/Vol] 0.2 mg/dL Normal 0.2-1.[address] [facility] Comment on above: Performed By: #### C MP #### [facility] [address] [address] [address] Jeffrey Thomas Calcium [Mass/Vol] 7.8 mg/dL Critically low 8.5-10.1 Th e [facility] Comment on above: Performed By: #### C MP #### [facility] [address] [address] [address] Jeffrey Thomas Chloride [Moles/Vol] 115 mmol/L Critically high 98-[address] [facility] Comment on above: Performed By: #### C MP #### [facility] [address] [address] [address] Jeffrey Thomas CO2 [Moles/Vol] 20.4 mmol/L Critically low 21.0-32.[address] [facility] Comment on above: Performed By: #### C MP #### [facility] [address] [place] [address] Dr. Jeffrey Thomas Creatinine [Mass/Vol] 0.98 mg/dL Normal 0.55-1.[address] [facility] Comment on above: Performed By: #### C MP #### [facility] [address] [address] [address] Jeffrey Thomas EGFR-AF ECUADOREAN >60 Normal >=[address] [facility] Comment on above: Performed By: #### C MP #### [facility] [address] [address] [address] Jeffrey Thomas EGFR-NON AF ECUADOREAN 57 mL/min/1.73m2 Critically low >=[address] [facility] Comment on above: Performed By: #### C MP #### [facility] [address] [address] [address] Jeffrey Thomas Globulin (S) [Mass/Vol] 2.6 g/dL Normal [facility] Comment on above: Performed By: #### C MP #### [facility] [address] [address] [address] Jeffrey Thomas Glucose [Mass/Vol] 80 mg/dL Normal 74-106 [facility] Comment on above: Performed By: #### C MP #### [facility] [address] [address] [address] Jeffrey Thomas Potassium [Moles/Vol] 4.2 mmol/L Normal 3.5-5.[address] [facility] Comment on above: Performed By: #### C MP #### [facility] [address] [place] [address] Dr. Jeffrey Thomas Protein [Mass/Vol] 5.4 g/dL Critically low 6.4-8.2 [facility] Comment on above: Performed By: #### C MP #### [facility] [address] [address] [address] Jeffrey Thomas Sodium [Moles/Vol] 144 mmol/L Normal 136-145 [facility] Comment on above: Performed By: #### C MP #### [facility] [address] [place] [address] Dr. Jeffrey Thomas Urea nitrogen [Mass/Vol] 10.0 mg/dL Normal 7.0-18.[address] [facility] Comment on above: Performed By: #### C MP #### [facility] [address] [place] [address] Dr. Jeffrey Thomas Urea nitrogen/Creatinine [Mass ratio] 10.2 mg/mg Normal [facility] Comment on above: Performed By: #### C MP #### [facility] [address] [place] [address] Dr. Jeffrey Thomas CBC AUTO DIFFon 08-27-2022 BASO # 0.1 103/ul Normal 0.0-0.[address] [facility] Comment on above: Performed By: #### C MP #### [facility] [address] [place] [address] Dr. Jeffrey Thomas Basophils/100 WBC (Bld) 1.2 % Normal 0.2-2.[address] [facility] Comment on above: Performed By: #### C MP #### [facility] [address] [place] [address] Dr. Jeffrey Thomas EO # 0.2 103/ul Normal 0.0-0.[address] [facility] Comment on above: Performed By: #### C MP #### [facility] [address] [place] [address] Dr. Jeffrey Thomas Eosinophils/100 WBC (Bld) 4.0 % Normal 0.9-7.0 [facility] Comment on above: Performed By: #### C MP #### [facility] [address] [place] [address] Dr. Jeffrey Thomas Erythrocyte distribution width (RBC) [Ratio] 14.6 % Normal 11.0-15.0 [facility] Comment on above: Performed By: #### C MP #### [facility] [address] [place] [address] Dr. Jeffrey Thomas Hematocrit (Bld) [Volume fraction] 35.8 % Critically low 36.0-48.0 [facility] Comment on above: Performed By: #### C MP #### [facility] [address] [place] [address] Dr. Jeffrey Thomas Hemoglobin (Bld) [Mass/Vol] 11.4 g/dL Critically low 12.0-16.[address] [facility] Comment on above: Performed By: #### C MP #### [facility] [address] [place] [address] Dr. Jeffrey Thomas IG # 0.01 10e3/ul Normal 0.00-0.03 The [facility] Comment on above: Performed By: #### C MP #### [facility] [address] [place] [address] Dr. Jeffrey Thomas IG % 0.2 % Normal 0.0-0.5 [facility] Comment on above: Performed By: #### C MP #### [facility] [address] [place] [address] Dr. Jeffrey Thomas LYMPH # 2.0 103/ul Normal 1.2-3.8 [facility] Comment on above: Performed By: #### C MP #### [facility] [address] [place] [address] Dr. Jeffrey Thomas Lymphocytes/100 WBC (Bld) 35.4 % Normal 20.5-60.0 [facility] Comment on above: Performed By: #### C MP #### [facility] [address] [place] [address] Dr. Jeffrey Thomas MANUAL DIFF REQ NO Normal [facility] Comment on above: Performed By: #### C MP #### [facility] [address] [place] [address] Dr. Jeffrey Thomas MCH (RBC) [Entitic mass] 29.9 pg Normal 26.7-34.[address] [facility] Comment on above: Performed By: #### C MP #### [facility] [address] [place] [address] Dr. Jeffrey Thomas MCHC (RBC) [Mass/Vol] 31.8 g/dL Normal 29.9-35.2 The [facility] Comment on above: Performed By: #### C MP #### [facility] [address] [place] [address] Dr. Jeffrey Thomas MCV (RBC) [Entitic vol] 94.0 fL Normal 81.0-99.[address] [facility] Comment on above: Performed By: #### C MP #### [facility] [address] [place] [address] Dr. Jeffrey Thomas MONO # 0.5 103/ul Normal 0.3-0.8 The [facility] Comment on above: Performed By: #### C MP #### [facility] [address] [place] [address] Dr. Jeffrey Thomas Monocytes/100 WBC (Bld) 9.2 % Normal 1.7-12.0 The [facility] Comment on above: Performed By: #### C MP #### [facility] [address] [place] [address] Dr. Jeffrey Thomas NEUT # 2.8 103/ul Normal 1.4-6.5 [facility] Comment on above: Performed By: #### C MP #### [facility] [address] [place] [address] Dr. Jeffrey Thomas Neutrophils/100 WBC (Bld) 50.0 % Normal 43.0-75.0 [facility] Comment on above: Performed By: #### C MP #### [facility] [address] [place] [address] Dr. Jeffrey Thomas Platelet mean volume (Bld) [Entitic vol] 12.0 fL Normal 9.5-13.[address] [facility] Comment on above: Performed By: #### C MP #### [facility] [address] [address] [address] Jeffrey Thomas PLT 199 103/ul Normal 150-[address] [facility] Comment on above: Performed By: #### C MP #### [facility] [address] [address] [address] Jeffrey Thomas RBC 3.81 106/ul Critically low 4.20-5.40 [facility] Comment on above: Performed By: #### C MP #### [facility] [address] [address] [address] Jeffrey Thomas WBC 5.7 103/ul Normal 4.0-11.[address] [facility] Comment on above: Performed By: #### C MP #### [facility] [address] [place] [address] Dr. Jeffrey Thomas LACTATE/LACTIC ACIDon 2022 Lactate [Moles/Vol] 0.6 mmol/L Normal 0.4-2.0 [facility] Comment on above: Performed By: #### C MP #### [facility] [address] [address] [address] Jeffrey Thomas Lactate [Moles/Vol] 2.8 mmol/L Critically high 0.4-2.[address] [facility] Comment on above: Performed By: #### T 4LC #### [facility] [address] [place] [address] Dr. Jeffrey Thomas PROF 14(COMP METB)on 023 Albumin [Mass/Vol] 2.8 g/dL Critically low 3.4-5.[address] [facility] Comment on above: Performed By: #### C MP #### [facility] [address] [place] [address] Dr. Jeffrey Thomas Albumin/Globulin [Mass ratio] 0.9 {ratio} Normal [facility] Comment on above: Performed By: #### C MP #### [facility] [address] [address] [address] Jeffrey Thomas ALP [Catalytic activity/Vol] 100 U/L Normal 46-[address] [facility] Comment on above: Performed By: #### C MP #### [facility] [address] [address] [address] Jeffrey Thomas ALT [Catalytic activity/Vol] 102 U/L Critically high 14-[address] [facility] Comment on above: Performed By: #### C MP #### [facility] [address] [address] [address] Jeffrey Thomas Anion gap [Moles/Vol] 17.0 mmol/L Normal [facility] Comment on above: Performed By: #### C MP #### [facility] [address] [place] [address] Dr. Jeffrey Thomas AST [Catalytic activity/Vol] 62 U/L Critically high 15-[address] [facility] Comment on above: Performed By: #### C MP #### [facility] [address] [address] [address] Jeffrey Thomas Bilirubin [Mass/Vol] 0.3 mg/dL Normal 0.2-1.[address] [facility] Comment on above: Performed By: #### C MP #### [facility] [address] [place] [address] Dr. Jeffrey Thomas Calcium [Mass/Vol] 8.1 mg/dL Critically low 8.5-10.[address] [facility] Comment on above: Performed By: #### C MP #### [facility] [address] [place] [address] Dr. Jeffrey Thomas Chloride [Moles/Vol] 110 mmol/L Critically high 98-[address] [facility] Comment on above: Performed By: #### C MP #### [facility] [address] [address] [address] Jeffrey Thomas CO2 [Moles/Vol] 18.6 mmol/L Critically low 21.0-32.[address] [facility] Comment on above: Performed By: #### C MP #### [facility] [address] [place] [address] Dr. Jeffrey Thomas Creatinine [Mass/Vol] 1.43 mg/dL Critically high 0.55-1.[address] [facility] Comment on above: Performed By: #### C MP #### [facility] [address] [address] [address] Jeffrey Thomas EGFR-AF ECUADOREAN 45 mL/min/1.73m2 Critically low >=[address] [facility] Comment on above: Performed By: #### C MP #### [facility] [address] [address] [address] Jeffrey Thomas EGFR-NON AF ECUADOREAN 37 mL/min/1.73m2 Critically low >=[address] [facility] Comment on above: Performed By: #### C MP #### [facility] [address] [place] [address] Dr. Jeffrey Thomas Globulin (S) [Mass/Vol] 3.0 g/dL Normal [facility] Comment on above: Performed By: #### C MP #### [facility] [address] [address] [address] Jeffrey Thomas Glucose [Mass/Vol] 141 mg/dL Critically high 74-106 [facility] Comment on above: Performed By: #### C MP #### [facility] [address] [place] [address] Dr. Jeffrey Thomas Potassium [Moles/Vol] 3.6 mmol/L Normal 3.5-5.[address] [facility] Comment on above: Performed By: #### C MP #### [facility] [address] [address] [address] Jeffrey Thomas Protein [Mass/Vol] 5.8 g/dL Critically low 6.4-8.2 [facility] Comment on above: Performed By: #### C MP #### [facility] [address] [place] [address] Dr. Jeffrey Thomas Sodium [Moles/Vol] 142 mmol/L Normal 136-145 [facility] Comment on above: Performed By: #### C MP #### [facility] [address] [place] [address] Dr. Jeffrey Thomas Urea nitrogen [Mass/Vol] 22.0 mg/dL Critically high 7.0-18.[address] [facility] Comment on above: Performed By: #### C ALE #### [facility] [address] [place] [address] Dr. Jeffrey Thomas Urea nitrogen/Creatinine [Mass ratio] 15.4 mg/mg Normal [facility] Comment on above: Performed By: #### C ALE #### [facility] [address] [place] [address] Dr. Jeffrey Thomas AMYLASEon 08-26-2022 Amylase [Catalytic activity/Vol] 40 U/L Normal 25-115 [facility] Comment on above: Performed By: #### C ALE #### [facility] [address] [place] [address] Dr. Jeffrey Thomas CARDIAC CHONG ADMITon 023 CK [Catalytic activity/Vol] 39 U/L Normal 26-[address] [facility] Comment on above: Performed By: #### C JUANITO AGUILERA #### [facility] [address] [place] [address] Dr. Jeffrey Thomas CK.MB [Mass/Vol] 1.47 ng/mL Normal <=3.60 [facility] Comment on above: Performed By: #### C JUANITO AGUILERA #### [facility] [address] [place] [address] Dr. Jeffrey Thomas HSTROP 7.0 pg/mL Normal 4.0-51.[address] [facility] Comment on above: Result Comment: CUT- OFF POINTS HAVE BEEN ESTABLISHED BASED ON THE FOURTH UNIVERSAL DEFINITIONS OF MYOCARDIAL INFARCTION. THE UPPER REFERENCE LIMIT (URL) OF TROPONIN, DEFINED THE 99TH PERCENTILE OF cTnI DISTRIBUTION IN A REFERENCE POPULATION, HAS BEEN CONFIRMED THE DECISION THRESHOLD FOR NV DIAGNOSIS. Performed By: #### C JUANITO AGUILERA #### [facility] [address] [place] [address] Dr. Jeffrey Thomas SHONNA 107 ng/mL Critically high 9-82 [facility] Comment on above: Performed By: #### C JUANITO AGUILERA #### [facility] [address] [place] [address] Dr. Jeffrey Thomas CBC AUTO DIFFon 08-26-2022 BASO # 0.1 103/ul Normal 0.0-0.[address] [facility] Comment on above: Performed By: #### C MP #### [facility] [address] [address] [address] Jeffrey Thomas Basophils/100 WBC (Bld) 0.9 % Normal 0.2-2.[address] [facility] Comment on above: Performed By: #### C MP #### [facility] [address] [address] [address] Jeffrey Thomas EO # 0.1 103/ul Normal 0.0-0.[address] [facility] Comment on above: Performed By: #### C MP #### [facility] [address] [place] [address] Dr. Jeffrey Thomas Eosinophils/100 WBC (Bld) 0.9 % Normal 0.9-7.[address] [facility] Comment on above: Performed By: #### C MP #### [facility] [address] [place] [address] Dr. Jeffrey Thomas Erythrocyte distribution width (RBC) [Ratio] 14.1 % Normal 11.0-15.[address] [facility] Comment on above: Performed By: #### C MP #### [facility] [address] [place] [address] Dr. Jeffrey Thomas Hematocrit (Bld) [Volume fraction] 48.3 % Critically high 36.0-48.[address] [facility] Comment on above: Performed By: #### C MP #### [facility] [address] [place] [address] Dr. Jeffrey Thomas Hemoglobin (Bld) [Mass/Vol] 15.4 g/dL Normal 12.0-16.0 [facility] Comment on above: Performed By: #### C MP #### [facility] [address] [place] [address] Dr. Jeffrey Thomas IG # 0.04 10e3/ul Critically high 0.00-0.03 [facility] Comment on above: Performed By: #### C MP #### [facility] [address] [place] [address] Dr. Jeffrey Thomas IG % 0.3 % Normal 0.0-0.[address] [facility] Comment on above: Performed By: #### C MP #### [facility] [address] [place] [address] Dr. Jeffrey Thomas LYMPH # 1.2 103/ul Normal 1.2-3.8 [facility] Comment on above: Performed By: #### C MP #### [facility] [address] [place] [address] Dr. Jeffrey Thomas Lymphocytes/100 WBC (Bld) 10.0 % Critically low 20.5-60.[address] [facility] Comment on above: Performed By: #### C MP #### [facility] [address] [place] [address] Dr. Jeffrey Thomas MANUAL DIFF REQ NO Normal [facility] Comment on above: Performed By: #### C MP #### [facility] [address] [place] [address] Dr. Jeffrey Thomas MCH (RBC) [Entitic mass] 29.7 pg Normal 26.7-34.[address] [facility] Comment on above: Performed By: #### C MP #### [facility] [address] [place] [address] Dr. Jeffrey Thomas MCHC (RBC) [Mass/Vol] 31.9 g/dL Normal 29.9-35.[address] [facility] Comment on above: Performed By: #### C MP #### [facility] [address] [place] [address] Dr. Jeffrey Thomas MCV (RBC) [Entitic vol] 93.1 fL Normal 81.0-99.0 [facility] Comment on above: Performed By: #### C MP #### [facility] [address] [place] [address] Dr. Jeffrey Thomas MONO # 0.5 103/ul Normal 0.3-0.[address] [facility] Comment on above: Performed By: #### C MP #### [facility] [address] [place] [address] Dr. Jeffrey Thomas Monocytes/100 WBC (Bld) 4.1 % Normal 1.7-12.[address] [facility] Comment on above: Performed By: #### C MP #### [facility] [address] [place] [address] Dr. Jeffrey Thomas NEUT # 10.2 103/ul Critically high 1.4-6.[address] [facility] Comment on above: Performed By: #### C MP #### [facility] [address] [place] [address] Dr. Jeffrey Thomas Neutrophils/100 WBC (Bld) 83.8 % Critically high 43.0-75.[address] [facility] Comment on above: Performed By: #### C MP #### [facility] [address] [place] [address] Dr. Jeffrey Thomas Platelet mean volume (Bld) [Entitic vol] 12.2 fL Normal 9.5-13.[address] [facility] Comment on above: Performed By: #### C MP #### [facility] [address] [place] [address] Dr. Jeffrey Thomas PLT 303 103/ul Normal 150-450 [facility] Comment on above: Performed By: #### C MP #### [facility] [address] [place] [address] Dr. Jeffrey Thomas RBC 5.19 106/ul Normal 4.20-5.40 [facility] Comment on above: Performed By: #### C MP #### [facility] [address] [place] [address] Dr. Jeffrey Thomas WBC 12.2 103/ul Critically high 4.0-11.0 [facility] Comment on above: Performed By: #### C MP #### [facility] [address] [place] [address] ABD/PELVIS WO CONon [...] POTTS Date: 2022-08-26 15:[address] [facility] LIPASEon 08-26-2022 Lipase [Catalytic activity/Vol] 27.0 U/L Critically low 73.0-393.[address] [facility] Comment on above: Performed By: #### L ACT #### [facility] [address] [place] [address] Dr. Jeffrey Thomas PROF 14(COMP METB)on 023 Albumin [Mass/Vol] 3.7 g/dL Normal 3.4-5.0 [facility] Comment on above: Performed By: #### C JUANITO AGUILERA #### [facility] [address] [address] [address] Jeffrey Thomas Albumin/Globulin [Mass ratio] 0.9 {ratio} Normal [facility] Comment on above: Performed By: #### C JUANITO AGUILERA #### [facility] [address] [address] [address] Jeffrey Thomas ALP [Catalytic activity/Vol] 138 U/L Critically high 46-[address] [facility] Comment on above: Performed By: #### C MP, CMADM #### [facility] [address] [address] [address] Jeffrey Thomas ALT [Catalytic activity/Vol] 174 U/L Critically high 14-[address] [facility] Comment on above: Performed By: #### C MP, CMADM #### [facility] [address] [address] [address] Jeffrey Thomas Anion gap [Moles/Vol] 20.4 mmol/L Normal [facility] Comment on above: Performed By: #### C MP, CMADM #### [facility] [address] [address] [address] Jeffrey Thomas AST [Catalytic activity/Vol] 135 U/L Critically high 15-[address] [facility] Comment on above: Performed By: #### C ALE, CMADM #### [facility] [address] [address] [address] Jeffrey Thomas Bilirubin [Mass/Vol] 0.4 mg/dL Normal 0.2-1.[address] [facility] Comment on above: Performed By: #### C ALE, CMADM #### [facility] [address] [address] [address] Jeffrey Thomas Calcium [Mass/Vol] 9.1 mg/dL Normal 8.5-10.1 [facility] Comment on above: Performed By: #### C ALE, CMADM #### [facility] [address] [address] [address] Jeffrey Thomas Chloride [Moles/Vol] 103 mmol/L Normal 98-[address] [facility] Comment on above: Performed By: #### C MP, CMADM #### [facility] [address] [address] [address] Jeffrey Thomas CO2 [Moles/Vol] 18.5 mmol/L Critically low 21.0-32.[address] [facility] Comment on above: Performed By: #### C ALE, CMADM #### [facility] [address] [address] [address] Jeffrey Thomas Creatinine [Mass/Vol] 1.85 mg/dL Critically high 0.55-1.[address] [facility] Comment on above: Performed By: #### C MP, CMADM #### [facility] [address] [address] [address] Jeffrey Thomas EGFR-AF ECUADOREAN 33 mL/min/1.73m2 Critically low >=[address] [facility] Comment on above: Performed By: #### C MP, CMADM #### [facility] [address] [address] [address] Jeffrey Thomas EGFR-NON AF ECUADOREAN 27 mL/min/1.73m2 Critically low >=[address] [facility] Comment on above: Performed By: #### C MP, CMADM #### [facility] [address] [place] [address] Dr. Jeffrey Thomas Globulin (S) [Mass/Vol] 4.0 g/dL Normal [facility] Comment on above: Performed By: #### C MP, CMADM #### [facility] [address] [address] [address] Jeffrey Thomas Glucose [Mass/Vol] 110 mg/dL Critically high 74-106 [facility] Comment on above: Performed By: #### C MP, CMADM #### [facility] [address] [place] [address] Dr. Jeffrey Thomas Potassium [Moles/Vol] 3.9 mmol/L Normal 3.5-5.[address] [facility] Comment on above: Performed By: #### C MP, CMADM #### [facility] [address] [place] [address] Dr. Jeffrey Thomas Protein [Mass/Vol] 7.7 g/dL Normal 6.4-8.2 [facility] Comment on above: Performed By: #### C MP, CMADM #### [facility] [address] [place] [address] Dr. Jeffrey Thomas Sodium [Moles/Vol] 138 mmol/L Normal 136-145 [facility] Comment on above: Performed By: #### C MP, CMADM #### [facility] [address] [place] [address] Dr. Jeffrey Thomas Urea nitrogen [Mass/Vol] 32.0 mg/dL Critically high 7.0-18.[address] [facility] Comment on above: Performed By: #### C JUANITO AGUILERA #### [facility] [address] [address] [address] Jeffrey Thomas Urea nitrogen/Creatinine [Mass ratio] 17.3 mg/mg Normal [facility] Comment on above: Performed By: #### C JUANITO AGUILERA #### [facility] [address] [address] [address] Jeffrey Thomsa US SINGLE QUAD RT UPPERon US SINGLE [...] LIDIA COLÓN Date: 2022-08-26 20:40 Normal [facility] CBC AUTO DIFFon 08-01-2022 BASO # 0.1 103/ul Normal 0.0-0.[address] [facility] Comment on above: Performed By: #### T 4LC #### [facility] [address] [place] [address] Dr. Jeffrey Thomas Basophils/100 WBC (Bld) 1.3 % Normal 0.2-2.[address] [facility] Comment on above: Performed By: #### T 4LC #### [facility] [facility] [address] [place] [address] Dr. Jeffrey Thomas EO # 0.2 103/ul Normal 0.0-0.[address] [facility] Comment on above: Performed By: #### T 4LC #### [facility] [address] [place] [address] Dr. Jeffrey Thomas Eosinophils/100 WBC (Bld) 2.8 % Normal 0.9-7.[address] [facility] Comment on above: Performed By: #### T 4LC #### [facility] [address] [place] [address] Dr. Jeffrey Thomas Erythrocyte distribution width (RBC) [Ratio] 15.9 % Critically high 11.0-15.[address] [facility] Comment on above: Performed By: #### T 4LC #### [facility] [address] [place] [address] Dr. Jeffrey Thomas Hematocrit (Bld) [Volume fraction] 37.7 % Normal 36.0-48.[address] [facility] Comment on above: Performed By: #### T 4LC #### [facility] [address] [place] [address] Dr. Jeffrey Thomas Hemoglobin (Bld) [Mass/Vol] 11.5 g/dL Critically low 12.0-16.[address] [facility] Comment on above: Performed By: #### T 4LC #### [facility] [address] [place] [address] Dr. Jeffrey Thomas IG # 0.03 10e3/ul Normal 0.00-0.[address] [facility] Comment on above: Performed By: #### T 4LC #### [facility] [address] [place] [address] Dr. Jeffrey Thomas IG % 0.4 % Normal 0.0-0.[address] [facility] Comment on above: Performed By: #### T 4LC #### [facility] [address] [place] [address] Dr. Jeffrey Thomas LYMPH # 1.6 103/ul Normal 1.2-3.[address] [facility] Comment on above: Performed By: #### T 4LC #### [facility] [address] [place] [address] Dr. Jeffrey Thomas Lymphocytes/100 WBC (Bld) 20.9 % Normal 20.5-60.[address] [facility] Comment on above: Performed By: #### T 4LC #### [facility] [address] [place] [address] Dr. Jeffrey Thomas MANUAL DIFF REQ NO Normal [facility] Comment on above: Performed By: #### T 4LC #### [facility] [address] [place] [address] Dr. Jeffrey Thomas MCH (RBC) [Entitic mass] 30.0 pg Normal 26.7-34.[address] [facility] Comment on above: Performed By: #### T 4LC #### [facility] [address] [place] [address] Dr. Jeffrey Thomas MCHC (RBC) [Mass/Vol] 30.5 g/dL Normal 29.9-35.[address] [facility] Comment on above: Performed By: #### T 4LC #### [facility] [address] [place] [address] Dr. Jeffrey Thomas MCV (RBC) [Entitic vol] 98.4 fL Normal 81.0-99.[address] [facility] Comment on above: Performed By: #### T 4LC #### [facility] [address] [place] [address] Dr. Jeffrey Thomas MONO # 0.7 103/ul Normal 0.3-0.[address] [facility] Comment on above: Performed By: #### T 4LC #### [facility] [address] [place] [address] Dr. Jeffrey Thomas Monocytes/100 WBC (Bld) 8.7 % Normal 1.7-12.[address] [facility] Comment on above: Performed By: #### T 4LC #### [facility] [address] [place] [address] Dr. Jeffrey Thomas NEUT # 5.2 103/ul Normal 1.4-6.[address] [facility] Comment on above: Performed By: #### T 4LC #### [facility] [address] [place] [address] Dr. Jeffrey Thomas Neutrophils/100 WBC (Bld) 65.9 % Normal 43.0-75.[address] [facility] Comment on above: Performed By: #### T 4LC #### [facility] [address] [place] [address] Dr. Jeffrey Thomas Platelet mean volume (Bld) [Entitic vol] 11.8 fL Normal 9.5-13.[address] [facility] Comment on above: Performed By: #### T 4LC #### [facility] [address] [place] [address] Dr. Jeffrey Thomas PLT 265 103/ul Normal 150-[address] [facility] Comment on above: Performed By: #### T 4LC #### [facility] [address] [place] [address] Dr. Jeffrey Thomas RBC 3.83 106/ul Critically low 4.20-5.40 [facility] Comment on above: Performed By: #### T 4LC #### [facility] [address] [place] [address] Dr. Jeffrey Thomas WBC 7.8 103/ul Normal 4.0-11.[address] [facility] Comment on above: Performed By: #### T 4LC #### [facility] [address] [place] [address] Dr. Jeffrey Thomas CULTURE BLOODon 08-01-2022 Microscopic examination of blood, culture Culture Observations: NO GROWTH AT 5 DAYS. Normal [facility] Comment on above: Performed By: #### A MM #### [facility] [address] [place] [address] Dr. Jeffrey Thomas PROF 14(COMP METB)on 023 Albumin [Mass/Vol] 3.4 g/dL Normal 3.4-5.0 [facility] Comment on above: Performed By: #### C MP #### [facility] [address] [place] [address] Dr. Jeffrey Thomas Albumin/Globulin [Mass ratio] 0.8 {ratio} Normal [facility] Comment on above: Performed By: #### C MP #### [facility] [address] [place] [address] Dr. Jeffrey Thomas ALP [Catalytic activity/Vol] 98 U/L Normal 46-[address] [facility] Comment on above: Performed By: #### C MP #### [facility] [address] [place] [address] Dr. Jeffrey Thomas ALT [Catalytic activity/Vol] 18 U/L Normal 14-[address] [facility] Comment on above: Performed By: #### C MP #### [facility] [address] [place] [address] Dr. Jeffrey Thomas Anion gap [Moles/Vol] 13.3 mmol/L Normal [facility] Comment on above: Performed By: #### C MP #### [facility] [address] [place] [address] Dr. Jeffrey Thomas AST [Catalytic activity/Vol] 21 U/L Normal 15-[address] [facility] Comment on above: Performed By: #### C MP #### [facility] [address] [place] [address] Dr. Jeffrey Thomas Bilirubin [Mass/Vol] 0.2 mg/dL Normal 0.2-1.[address] [facility] Comment on above: Performed By: #### C MP #### [facility] [address] [place] [address] Dr. Jeffrey Thomas Calcium [Mass/Vol] 9.2 mg/dL Normal 8.5-10.1 [facility] Comment on above: Performed By: #### C MP #### [facility] [address] [place] [address] Dr. Jeffrey Thomas Chloride [Moles/Vol] 106 mmol/L Normal 98-[address] [facility] Comment on above: Performed By: #### C MP #### [facility] [address] [address] [address] Jeffrey Thomas CO2 [Moles/Vol] 23.8 mmol/L Normal 21.0-32.[address] [facility] Comment on above: Performed By: #### C MP #### [facility] [address] [address] [address] Jeffrey Thomas Creatinine [Mass/Vol] 1.07 mg/dL Critically high 0.55-1.[address] [facility] Comment on above: Performed By: #### C MP #### [facility] [address] [address] [address] Jeffrey Thomas EGFR-AF ECUADOREAN >60 Normal >=60 [facility] Comment on above: Performed By: #### C MP #### [facility] [address] [address] [address] Jeffrey Thomas EGFR-NON AF ECUADOREAN 51 mL/min/1.73m2 Critically low >=[address] [facility] Comment on above: Performed By: #### C MP #### [facility] [address] [address] [address] Jeffrey Thomas Globulin (S) [Mass/Vol] 4.1 g/dL Normal [facility] Comment on above: Performed By: #### C MP #### [facility] [address] [address] [address] Jeffrey Thomas Glucose [Mass/Vol] 77 mg/dL Normal 74-106 [facility] Comment on above: Performed By: #### C MP #### [facility] [address] [address] [address] Jeffrey Thomas Potassium [Moles/Vol] 5.1 mmol/L Normal 3.5-5.1 [facility] Comment on above: Performed By: #### C MP #### [facility] [address] [address] [address] Jeffrey Thomas Protein [Mass/Vol] 7.5 g/dL Normal 6.4-8.2 [facility] Comment on above: Performed By: #### C MP #### [facility] [address] [address] [address] Jeffrey Thomas Sodium [Moles/Vol] 138 mmol/L Normal 136-145 [facility] Comment on above: Performed By: #### C MP #### [facility] [address] [place] [address] Dr. Jeffrey Thomas Urea nitrogen [Mass/Vol] 36.0 mg/dL Critically high 7.0-18.[address] [facility] Comment on above: Performed By: #### C MP #### [facility] [address] [place] [address] Dr. Jeffrey Thomas Urea nitrogen/Creatinine [Mass ratio] 33.6 mg/mg Normal [facility] Comment on above: Performed By: #### C MP #### [facility] [address] [place] [address] Dr. Jeffrey Thomas SED RATE WESTERGRENon 2022 SED RATE 42 mm/hr Critically high <=30 [facility] Comment on above: Performed By: #### C MP #### [facility] [address] [place] [address] Dr. Jeffrey Thomas AMMONIAon 05-23-2022 Ammonia (P) [Moles/Vol] 18 umol/L Normal 11-[address] [facility] Comment on above: Performed By: #### C MP #### [facility] [address] [place] [address] Dr. Jeffrey Thomas AMYLASEon 05-23-2022 Amylase [Catalytic activity/Vol] 30 U/L Normal 25-[address] [facility] Comment on above: Performed By: #### A MM #### [facility] [address] [place] [address] Dr. Jeffrey Thomas BNPon 05-23-2022 Natriuretic peptide B (Bld) [Mass/Vol] 1066.0 pg/mL Critically high <=900.[address] [facility] Comment on above: Performed By: #### A MM #### [facility] [address] [place] [address] Dr. Jeffrey Thomas CBC AUTO DIFFon 05-23-2022 BASO # 0.1 103/ul Normal 0.0-0.[address] [facility] Comment on above: Performed By: #### C MP #### [facility] [address] [place] [address] Dr. Jeffrey Thomas Basophils/100 WBC (Bld) 1.1 % Normal 0.2-2.[address] [facility] Comment on above: Performed By: #### C MP #### [facility] [address] [place] [address] Dr. Jeffrey Thomas EO # 0.2 103/ul Normal 0.0-0.[address] [facility] Comment on above: Performed By: #### C MP #### [facility] [address] [place] [address] Dr. Jeffrey Thomas Eosinophils/100 WBC (Bld) 3.1 % Normal 0.9-7.[address] [facility] Comment on above: Performed By: #### C MP #### [facility] [address] [place] [address] Dr. Jeffrey Thomas Erythrocyte distribution width (RBC) [Ratio] 17.2 % Critically high 11.0-15.[address] [facility] Comment on above: Performed By: #### C MP #### [facility] [address] [place] [address] Dr. Jeffrey Thomas Hematocrit (Bld) [Volume fraction] 33.0 % Critically low 36.0-48.[address] [facility] Comment on above: Performed By: #### C MP #### [facility] [address] [place] [address] Dr. Jeffrey Thomas Hemoglobin (Bld) [Mass/Vol] 10.3 g/dL Critically low 12.0-16.[address] [facility] Comment on above: Performed By: #### C MP #### [facility] [address] [place] [address] Dr. Jeffrey Thomas IG # 0.02 10e3/ul Normal 0.00-0.[address] [facility] Comment on above: Performed By: #### C MP #### [facility] [address] [place] [address] Dr. Jeffery Thomas IG % 0.3 % Normal 0.0-0.[address] [facility] Comment on above: Performed By: #### C MP #### [facility] [address] [place] [address] Dr. Jeffrey Thomas LYMPH # 1.8 103/ul Normal 1.2-3.[address] [facility] Comment on above: Performed By: #### C MP #### [facility] [address] [place] [address] Dr. Jeffrey Thomas Lymphocytes/100 WBC (Bld) 27.8 % Normal 20.5-60.[address] [facility] Comment on above: Performed By: #### C MP #### [facility] [address] [place] [address] Dr. Jeffrey Thomas MANUAL DIFF REQ NO Normal [facility] Comment on above: Performed By: #### C MP #### [facility] [address] [place] [address] Dr. Jeffrey Thomas MCH (RBC) [Entitic mass] 28.4 pg Normal 26.7-34.[address] [facility] Comment on above: Performed By: #### C MP #### [facility] [address] [place] [address] Dr. Jeffrey Thomas MCHC (RBC) [Mass/Vol] 31.2 g/dL Normal 29.9-35.[address] [facility] Comment on above: Performed By: #### C MP #### [facility] [address] [place] [address] Dr. Jeffrey Thomas MCV (RBC) [Entitic vol] 90.9 fL Normal 81.0-99.[address] [facility] Comment on above: Performed By: #### C MP #### [facility] [address] [place] [address] Dr. Jeffrey Thomas MONO # 0.4 103/ul Normal 0.3-0.[address] [facility] Comment on above: Performed By: #### C MP #### [facility] [address] [place] [address] Dr. Jeffrey Thomas Monocytes/100 WBC (Bld) 6.7 % Normal 1.7-12.[address] [facility] Comment on above: Performed By: #### C MP #### [facility] [address] [address] [address] Jeffrey Thomas NEUT # 4.0 103/ul Normal 1.4-6.5 [facility] Comment on above: Performed By: #### C MP #### [facility] [address] [address] [address] Jeffrey Thomas Neutrophils/100 WBC (Bld) 61.0 % Normal 43.0-75.[address] [facility] Comment on above: Performed By: #### C MP #### [facility] [address] [address] [address] Jeffrey Thomas Platelet mean volume (Bld) [Entitic vol] 10.4 fL Normal 9.5-13.[address] [facility] Comment on above: Performed By: #### C MP #### [facility] [address] [address] [address] Jeffrey Thomas PLT 218 103/ul Normal 150-450 [facility] Comment on above: Performed By: #### C MP #### [facility] [address] [place] [address] Dr. Jeffrey Thomas RBC 3.63 106/ul Critically low 4.20-5.40 [facility] Comment on above: Performed By: #### C MP #### [facility] [address] [place] [address] Dr. Jeffrey Thomas WBC 6.5 103/ul Normal 4.0-11.0 [facility] Comment on above: Performed By: #### C MP #### [facility] [address] [place] [address] Dr. Jeffrey Thomas MAGNESIUMon 05-23-2022 Magnesium [Mass/Vol] 1.4 mg/dL Critically low 1.8-2.[address] [facility] Comment on above: Performed By: #### A MM #### [facility] [address] [place] [address] Dr. Jeffrey Thomas PROF 14(COMP METB)on 023 Albumin [Mass/Vol] 2.8 g/dL Critically low 3.4-5.0 [facility] Comment on above: Performed By: #### A MM #### [facility] [address] [place] [address] Dr. Jeffrey Thomas Albumin/Globulin [Mass ratio] 1.0 {ratio} Normal [facility] Comment on above: Performed By: #### A MM #### [facility] [address] [place] [address] Dr. Jeffrey Thomas ALP [Catalytic activity/Vol] 113 U/L Normal 46-[address] [facility] Comment on above: Performed By: #### A MM #### [facility] [address] [place] [address] Dr. Jeffrey Thomas ALT [Catalytic activity/Vol] 14 U/L Normal 14-[address] [facility] Comment on above: Performed By: #### A MM #### [facility] [address] [place] [address] Dr. Jeffrey Thomas Anion gap [Moles/Vol] 15.0 mmol/L Normal [facility] Comment on above: Performed By: #### A MM #### [facility] [address] [place] [address] Dr. Jeffrey Thomas AST [Catalytic activity/Vol] 18 U/L Normal 15-[address] [facility] Comment on above: Performed By: #### A MM #### [facility] [address] [place] [address] Dr. Jeffrey Thomas Bilirubin [Mass/Vol] 0.5 mg/dL Normal 0.2-1.[address] [facility] Comment on above: Performed By: #### A MM #### [facility] [address] [place] [address] Dr. Jeffrey Thomas Calcium [Mass/Vol] 8.3 mg/dL Critically low 8.5-10.1 [facility] Comment on above: Performed By: #### A MM #### [facility] [address] [place] [address] Dr. Jeffrey Thomas Chloride [Moles/Vol] 106 mmol/L Normal 98-[address] [facility] Comment on above: Performed By: #### A MM #### [facility] [address] [address] [address] Jeffrey Thomas CO2 [Moles/Vol] 21.2 mmol/L Normal 21.0-32.[address] [facility] Comment on above: Performed By: #### A MM #### [facility] [address] [address] [address] Jeffrey Thomas Creatinine [Mass/Vol] 1.02 mg/dL Normal 0.55-1.[address] [facility] Comment on above: Performed By: #### A MM #### [facility] [address] [address] [address] Jeffrey Thomas EGFR-AF ECUADOREAN >60 Normal >=[address] [facility] Comment on above: Performed By: #### A MM #### [facility] [address] [place] [address] Dr. Jeffrey Thomas EGFR-NON AF ECUADOREAN 54 mL/min/1.73m2 Critically low >=[address] [facility] Comment on above: Performed By: #### A MM #### [facility] [address] [place] [address] Dr. Jeffrey Thomas Globulin (S) [Mass/Vol] 2.8 g/dL Normal [facility] Comment on above: Performed By: #### A MM #### [facility] [address] [place] [address] Dr. Jeffrey Thomas Glucose [Mass/Vol] 85 mg/dL Normal 74-106 [facility] Comment on above: Performed By: #### A MM #### [facility] [address] [place] [address] Dr. Jeffrey Thomas Potassium [Moles/Vol] 4.2 mmol/L Normal 3.5-5.[address] [facility] Comment on above: Performed By: #### A MM #### [facility] [address] [place] [address] Dr. Jeffrey Thomas Protein [Mass/Vol] 5.6 g/dL Critically low 6.4-8.2 [facility] Comment on above: Performed By: #### A MM #### [facility] [address] [place] [address] Dr. Jeffrey Thomas Sodium [Moles/Vol] 138 mmol/L Normal 136-145 [facility] Comment on above: Performed By: #### A MM #### [facility] [address] [place] [address] Dr. Jeffrey Thomas Urea nitrogen [Mass/Vol] 17.0 mg/dL Normal 7.0-18.[address] [facility] Comment on above: Performed By: #### A MM #### [facility] [address] [place] [address] Dr. Jeffrey Thomas Urea nitrogen/Creatinine [Mass ratio] 16.7 mg/mg Normal [facility] Comment on above: Performed By: #### A MM #### [facility] [address] [place] [address] Dr. Jeffrey Thomas BNPon 05-22-2022 Natriuretic peptide B (Bld) [Mass/Vol] 1738.0 pg/mL Critically high <=900.[address] [facility] Comment on above: Performed By: #### C MP #### [facility] [address] [place] [address] Dr. Jeffrey Thomas CBC AUTO DIFFon 05-22-2022 BASO # 0.1 103/ul Normal 0.0-0.[address] [facility] Comment on above: Performed By: #### C MP #### [facility] [address] [place] [address] Dr. Jeffrey Thomas Basophils/100 WBC (Bld) 1.0 % Normal 0.2-2.[address] [facility] Comment on above: Performed By: #### C MP #### [facility] [address] [place] [address] Dr. Jeffrey Thomas EO # 0.1 103/ul Normal 0.0-0.7 [facility] Comment on above: Performed By: #### C MP #### [facility] [address] [place] [address] Dr. Jeffrey Thomas Eosinophils/100 WBC (Bld) 1.0 % Normal 0.9-7.0 [facility] Comment on above: Performed By: #### C MP #### [facility] [address] [place] [address] Dr. Jeffrey Thomas Erythrocyte distribution width (RBC) [Ratio] 17.2 % Critically high 11.0-15.[address] [facility] Comment on above: Performed By: #### C MP #### [facility] [address] [place] [address] Dr. Jeffrey Thomas Hematocrit (Bld) [Volume fraction] 36.8 % Normal 36.0-48.[address] [facility] Comment on above: Performed By: #### C MP #### [facility] [address] [place] [address] Dr. Jeffrey Thomas Hemoglobin (Bld) [Mass/Vol] 11.8 g/dL Critically low 12.0-16.[address] [facility] Comment on above: Performed By: #### C MP #### [facility] [address] [place] [address] Dr. Jeffrey Thomas IG # 0.01 10e3/ul Normal 0.00-0.[address] [facility] Comment on above: Performed By: #### C MP #### [facility] [address] [place] [address] Dr. Jeffrey Thomas IG % 0.2 % Normal 0.0-0.[address] [facility] Comment on above: Performed By: #### C MP #### [facility] [address] [place] [address] Dr. Jeffrey Thomas LYMPH # 1.4 103/ul Normal 1.2-3.[address] [facility] Comment on above: Performed By: #### C MP #### [facility] [address] [place] [address] Dr. Jeffrey Thomas Lymphocytes/100 WBC (Bld) 28.2 % Normal 20.5-60.[address] [facility] Comment on above: Performed By: #### C MP #### [facility] [address] [place] [address] Dr. Jeffrey Thomas MANUAL DIFF REQ NO Normal [facility] Comment on above: Performed By: #### C MP #### [facility] [address] [address] [address] Jeffrey Thomas MCH (RBC) [Entitic mass] 29.0 pg Normal 26.7-34.0 [facility] Comment on above: Performed By: #### C MP #### [facility] [address] [place] [address] Dr. Jeffrey Thomas MCHC (RBC) [Mass/Vol] 32.1 g/dL Normal 29.9-35.2 [facility] Comment on above: Performed By: #### C MP #### [facility] [address] [place] [address] Dr. Jeffrey Thomas MCV (RBC) [Entitic vol] 90.4 fL Normal 81.0-99.0 [facility] Comment on above: Performed By: #### C MP #### [facility] [address] [place] [address] Dr. Jeffrey Thomas MONO # 0.4 103/ul Normal 0.3-0.8 [facility] Comment on above: Performed By: #### C MP #### [facility] [address] [place] [address] Dr. Jeffrey Thomas Monocytes/100 WBC (Bld) 7.3 % Normal 1.7-12.0 [facility] Comment on above: Performed By: #### C MP #### [facility] [address] [place] [address] Dr. Jeffrey Thomas NEUT # 3.0 103/ul Normal 1.4-6.5 [facility] Comment on above: Performed By: #### C MP #### [facility] [address] [place] [address] Dr. Jeffrey Thomas Neutrophils/100 WBC (Bld) 62.3 % Normal 43.0-75.0 [facility] Comment on above: Performed By: #### C MP #### [facility] [address] [place] [address] Dr. Jeffrey Thomas Platelet mean volume (Bld) [Entitic vol] 10.4 fL Normal 9.5-13.5 [facility] Comment on above: Performed By: #### C MP #### [facility] [address], [place] [address] Dr. Jeffrey Thomas PLT 254 103/ul Normal 150-450 [facility] Comment on above: Performed By: #### C MP #### [facility] [id number] Jeffrey Thomas RBC 4.07 106/ul Critically low 4.20-5.40 [facility] Comment on above: Performed By: #### C MP #### [facility] [id number] Jeffrey Thomas WBC 4.8 103/ul Normal 4.0-11.[address] [facility] Comment on above: Performed By: #### C MP #### [facility] [id number] Jeffrey Thomas CT ABD/PELVIS WO CONon [...] SALOME JOLLY Date: 2022-05-22 15:45 Normal [facility] CULTURE URINEon 05-22-2022 CULTURE URINE Culture Observations : LIGHT GROWTH OF MIXED GENITAL CANDIDA. NO POTENTIAL PATHOGENS SEEN. Normal [facility] Comment on above: Performed By: #### A MM #### [facility] [address] [place] [address] Dr. Jeffrey Thomas [facility] SARS-CoV-2 (COVID-19) RNA REBECCA+probe Ql (Unsp spec) Not detected Normal NOT DETECTED The [facility] Comment on above: Result Comment: When diagnostic [...] for this test is supported by the [place] of [employer] and Human Service's declaration that [...] used). Performed By: #### C MP #### [facility] [address] [place] [address] Dr. Jeffrey Thomsa ER URINE PROFILEon 3 Bilirubin Ql (U) Negative Normal NEGATIVE [facility] Comment on above: Performed By: #### C MP #### [facility] [address] [place] [address] Dr. Jeffrey Thomas Clarity (U) CLEAR Normal CLEAR [facility] Comment on above: Performed By: #### C MP #### [facility] [address] [place] [address] Dr. Jeffrey Thomas Color (U) YELLOW Normal YELLOW [facility] Comment on above: Performed By: #### C MP #### [facility] [address] [place] [address] Dr. Jeffrey AVERYMike A micrscopic examination will be performed if indicated. Normal [facility] Comment on above: Performed By: #### C MP #### [facility] [address] [place] [address] Dr. Jeffrey Thomas Glucose Ql (U) Negative Normal NEGATIVE [facility] Comment on above: Performed By: #### C MP #### [facility] [address] [place] [address] Dr. Jeffrey Thomas Hemoglobin Ql (U) Negative Normal NEGATIVE [facility] Comment on above: Performed By: #### C MP #### [facility] [address] [place] [address] Dr. Jeffrey Thomas Ketones Ql (U) Negative Normal NEGATIVE [facility] Comment on above: Performed By: #### C MP #### [facility] [address] [place] [address] Dr. Jeffrey Thomas LEUKOCYTES Negative Normal NEGATIVE [facility] Comment on above: Performed By: #### C MP #### [facility] [address] [place] [address] Dr. Jeffrey Thomas Nitrite Ql (U) Negative Normal NEGATIVE [facility] Comment on above: Performed By: #### C MP #### [facility] [address] [place] [address] Dr. Jeffrey Thomas pH (U) 5.0 [pH] Normal 5-[address] [facility] Comment on above: Performed By: #### C MP #### [facility] [address] [place] [address] Dr. Jeffrey Thomas SPEC GRAVITY 1.020 Normal 1.005-<=1.[address] [facility] Comment on above: Performed By: #### C MP #### [facility] [address] [place] [address] Dr. Jeffrey Thomas UA PROTEIN Negative Normal NEGATIVE/ TRACE [facility] Comment on above: Performed By: #### C MP #### [facility] [address] [place] [address] Dr. Jeffrey Thomas UR MICRO IND NOT INDICATED Normal [facility] Comment on above: Performed By: #### C MP #### [facility] [address] [place] [address] Dr. Jeffrey Thomas Urobilinogen Qn (U) 0.2 {Bere'U}/dL Normal 0.2 - 1. [address] [facility] Comment on above: Performed By: #### C MP #### [facility] [address] [place] [address] Dr. Jeffrey Thomas INFLUENZA A AND B AGon 05-22 INFLUANEGH SEE BELOW Normal [facility] Comment on above: Result Comment: Nega tive for Flu A protein angiten. Infection due to Flu A cannot be ruled out. Flu A angiten in the sample may be below the detection limit of the test. Performed By: #### C MP #### [facility] [address] [place] [address] Dr. Jeffrey Thomas [facility] SEE BELOW Normal [facility] Comment on above: Result Comment: Nega tive for Flu B protein antigen. Infection due to Flu B cannot be ruled out. Flu B antigen in the sample may be below the detection limit of the test. Performed By: #### C MP #### [facility] [address] [place] [address] Dr. Jeffrey Thomas INFLUENZA A AG Negative Normal NEGATIVE SEE COMMENT [facility] Comment on above: Performed By: #### C MP #### [facility] [address] [place] [address] Dr. Jeffrey Thomas INFLUENZA B AG Negative Normal NEGATIVE SEE COMMENT [facility] Comment on above: Performed By: #### C MP #### [facility] [address] [place] [address] Dr. Jeffrey Thomas LACTATE/LACTIC ACIDon 2022 Lactate [Moles/Vol] 1.4 mmol/L Normal 0.4-1.9 [facility] Comment on above: Performed By: #### L ACT #### [facility] [address] [place] [address] Dr. Jeffrey Thomas Lactate [Moles/Vol] 1.1 mmol/L Normal 0.4-1.9 [facility] Comment on above: Performed By: #### T 4LC #### [facility] [address] [place] [address] Dr. Jeffrey Thomas LIPASEon 05-22-2022 Lipase [Catalytic activity/Vol] 21.0 U/L Critically low 73.0-393.[address] [facility] Comment on above: Performed By: #### C MP #### [facility] [address] [place] [address] Dr. Jeffrey Thomas PROF 14(COMP METB)on 023 Albumin [Mass/Vol] 3.2 g/dL Critically low 3.4-5.[address] [facility] Comment on above: Performed By: #### C MP #### [facility] [address] [place] [address] Dr. Jeffrey Thomas Albumin/Globulin [Mass ratio] 1.0 {ratio} Normal [facility] Comment on above: Performed By: #### C MP #### [facility] [address] [place] [address] Dr. Jeffrey Thomas ALP [Catalytic activity/Vol] 133 U/L Critically high 46-[address] [facility] Comment on above: Performed By: #### C MP #### [facility] [address] [place] [address] Dr. Jeffrey Thomas ALT [Catalytic activity/Vol] 14 U/L Normal 14-[address] [facility] Comment on above: Performed By: #### C MP #### [facility] [address] [place] [address] Dr. Jeffrey Thomas Anion gap [Moles/Vol] 17.3 mmol/L Normal [facility] Comment on above: Performed By: #### C MP #### [facility] [address] [place] [address] Dr. Jeffrey Thomas AST [Catalytic activity/Vol] 18 U/L Normal 15-[address] [facility] Comment on above: Performed By: #### C MP #### [facility] [address] [place] [address] Dr. Jeffrey Thomas Bilirubin [Mass/Vol] 0.5 mg/dL Normal 0.2-1.[address] [facility] Comment on above: Performed By: #### C MP #### [facility] [address] [place] [address] Dr. Jeffrey Thomas Calcium [Mass/Vol] 9.0 mg/dL Normal 8.5-10.1 [facility] Comment on above: Performed By: #### C MP #### [facility] [address] [place] [address] Dr. Jeffrey Thomas Chloride [Moles/Vol] 107 mmol/L Normal 98-[address] [facility] Comment on above: Performed By: #### C MP #### [facility] [address] [place] [address] Dr. Jeffery Thomas CO2 [Moles/Vol] 20.0 mmol/L Critically low 21.0-32.[address] [facility] Comment on above: Performed By: #### C MP #### [facility] [address] [address] [address] Jeffrey Thomas Creatinine [Mass/Vol] 1.05 mg/dL Critically high 0.55-1.[address] [facility] Comment on above: Performed By: #### C MP #### [facility] [address] [address] [address] Jeffrey Thomas EGFR-AF ECUADOREAN >60 Normal >=[address] [facility] Comment on above: Performed By: #### C MP #### [facility] [address] [address] [address] Jeffrey Thomas EGFR-NON AF ECUADOREAN 53 mL/min/1.73m2 Critically low >=[address] [facility] Comment on above: Performed By: #### C MP #### [facility] [address] [address] [address] Jeffrey Thomas Globulin (S) [Mass/Vol] 3.1 g/dL Normal [facility] Comment on above: Performed By: #### C MP #### [facility] [address] [address] [address] Jeffrey Thomas Glucose [Mass/Vol] 117 mg/dL Critically high 74-106 [facility] Comment on above: Performed By: #### C MP #### [facility] [address] [address] [address] Jeffrey Thomas Potassium [Moles/Vol] 4.3 mmol/L Normal 3.5-5.[address] [facility] Comment on above: Performed By: #### C MP #### [facility] [address] [address] [address] Jeffrey Thomas Protein [Mass/Vol] 6.3 g/dL Critically low 6.4-8.2 [facility] Comment on above: Performed By: #### C MP #### [facility] [address] [address] [address] Jeffrey Thomas Sodium [Moles/Vol] 140 mmol/L Normal 136-145 [facility] Comment on above: Performed By: #### C MP #### [facility] [address] [address] [address] Jeffrey Thomas Urea nitrogen [Mass/Vol] 20.0 mg/dL Critically high 7.0-18.[address] [facility] Comment on above: Performed By: #### C MP #### [facility] [address] [place] [address] Dr. Jeffrey Thomas Urea nitrogen/Creatinine [Mass ratio] 19.0 mg/mg Normal [facility] Comment on above: Performed By: #### C MP #### [facility] [address] [place] [address] Dr. Jeffrey Thomas PROTIMEon 05-22-2022 INR Coag (PPP) [Relative time] 0.99 {INR} Normal [facility] Comment on above: Performed By: #### C MP #### [facility] [address] [place] [address] Dr. Jeffrey Thomas INR GUIDELINES SEE BELOW Normal [facility] Comment on above: Result Comment: MERARI RED INR: 2.0 - 3.0 CONDITIONS NOT LISTED BELOW 2.5 - 3.5 FOR PROSTHETIC HEART VALVE REPLACEMENT 2.5 - 3.5 RECURRENT THROMBOSIS Performed By: #### C MP #### [facility] [address] [place] [address] Dr. Jeffrey Thomas PT Coag (PPP) [Time] 10.5 s Normal 9.0-11.6 [facility] Comment on above: Performed By: #### C MP #### [facility] [address] [place] [address] Dr. Jeffrey Thomas PTTon 05-22-2022 aPTT Coag (Bld) [Time] 25.9 s Normal 22.3-36.2 [facility] Comment on above: Performed By: #### C MP #### [facility] [address] [place] [address] Dr. Jeffrey Thomas TROPONIN, HIGH SENSITIVITYon 05-22-2022 HSTROP 6.1 pg/mL Normal 4.0-51.3 [facility] Comment on above: Result Comment: CUT- OFF POINTS HAVE BEEN ESTABLISHED BASED ON THE FOURTH UNIVERSAL DEFINITIONS OF MYOCARDIAL INFARCTION. THE UPPER REFERENCE LIMIT (URL) OF TROPONIN, DEFINED THE 99TH PERCENTILE OF cTnI DISTRIBUTION IN A REFERENCE POPULATION, HAS BEEN CONFIRMED THE DECISION THRESHOLD FOR NV DIAGNOSIS. Performed By: #### C #### [facility] [address], [place] [address] Dr. Jeffrey Thomas US SINGLE QUAD RT [...] by: ABDIAS WEN Date: 2022-05-22 17:32 Normal [facility] XR CHEST 1 Von 05-22-2022 XR CHEST [...] MELLY SEO Date: 2022-05-22 15:32 Normal [facility] PT Coag (PPP) [Time]on 05-04 INR Coag (PPP) [Relative time] 1.7 {INR} Normal <=5.0 [facility] Comment on above: Result Comment: The recommended therapeutic INR range for most cardiac indications is 2.0-3.0 For high intensity therapy (i.e. mechanical heart valves), the recommended range is 2.5-3.5 Performed By: #### 5 902-2 #### [facility] [place] [facility] [address] [place] [address] Prothrombin timeon 3 PT Coag (PPP) [Time] 18.8 s High 11.9-14.7 [facility] Comment on above: Performed By: #### 5 902-2 #### [facility] [place] [facility] [address] [place] [address] Basic metabolic 2000 panelon 05-03-2022 Anion gap [Moles/Vol] 8 mmol/L Normal 6-18 Ar[facility] Comment on above: Performed By: #### 2 4321-2 #### [facility] [place] [facility] [address] [place] [address] Calcium [Mass/Vol] 8.6 mg/dL Low 8.9-10.3 [facility] Comment on above: Performed By: #### 2 4321-2 #### [facility] [place] [facility] [address] [place] [address] Chloride [Moles/Vol] 109 mmol/L High 98-107 [facility] Comment on above: Performed By: #### 2 4321-2 #### [facility] [place] [facility] [address] [place] [address] CO2 [Moles/Vol] 25 mmol/L Normal 22-32 [facility] Comment on above: Performed By: #### 2 4321-2 #### [facility] [place] [facility] [address] [place] [address] Creatinine [Mass/Vol] 1.07 mg/dL Normal 0.60-1.30 Ar[facility] Comment on above: Performed By: #### 2 4321-2 #### [facility] [place] [facility] [address] [place] [address] GFR/1.73 sq M.predicted among non-blacks MDRD (S/P/Bld) [Vol rate/Area] 58 mL/min/{1.73_m2} Low >=60 [facility] Comment on above: Result Comment: Effe ctive January 08, 2022, calculation based on the?Chronic Kidney Disease Epidemiology Collaboration (CKD-EPI) equation refit?without adjustment for race. Performed By: #### 2 4321-2 #### [facility] [place] [facility] [address] [place] [address] Glucose [Mass/Vol] 78 mg/dL Normal 70-99 [facility] Comment on above: Performed By: #### 2 4321-2 #### [facility] [place] [facility] [address] [place] [address] Potassium [Moles/Vol] 5.1 mmol/L Normal 3.6-5.1 Ar[facility] Comment on above: Performed By: #### 2 4321-2 #### [facility] [place] [facility] [address] [place] [address] Sodium [Moles/Vol] 142 mmol/L Normal 136-145 [facility] Comment on above: Performed By: #### 2 4321-2 #### [facility] [place] [facility] [address] [place] [address] Urea nitrogen [Mass/Vol] 35 mg/dL High 8-20 [facility] Comment on above: Performed By: #### 2 4321-2 #### [facility] [place] [facility] [address] [place] [address] Urea nitrogen/Creatinine [Mass ratio] 32.7 mg/mg High 12.0-20.0 [facility] Comment on above: Performed By: #### 2 4321-2 #### [facility] [place] [facility] [address] [place] [address] Hemogram and platelets WO di fferential panel (Bld)on 05-03-2022 Erythrocyte distribution width (RBC) [Ratio] 16.4 % High 11.0-14.8 [facility] Comment on above: Performed By: #### 2 4321-2 #### [facility] [place] [facility] [address] [place] [address] Hematocrit (Bld) [Volume fraction] 33.4 % Low 34.3-47.9 [facility] Comment on above: Performed By: #### 2 4321-2 #### [facility] [facility] [address] [place] [address] 82559 Hemoglobin (Bld) [Mass/Vol] 10.0 g/dL Low 12.0-16.0 [facility] Comment on above: Performed By: #### 2 4321-2 #### [facility] [place] [facility] [address] [place] [address] 48528 MCH 27.2 pcg Normal 27.0-34.0 [facility] Comment on above: Performed By: #### 2 4321-2 #### [facility] [place] [facility] [address] [place] [address] 98507 MCHC (RBC) [Mass/Vol] 29.9 g/dL Low 30.8-35.3 [facility] Comment on above: Performed By: #### 2 4321-2 #### [facility] [place] [facility] [address] [place] [address] 40147 MCV (RBC) [Entitic vol] 91.0 fL Normal 80.0-97.0 [facility] Comment on above: Performed By: #### 2 4321-2 #### [facility] [place] [facility] [address] [place] [address] 91843 Platelet mean volume (Bld) [Entitic vol] 11.6 fL Normal 6.2-12.1 [facility] Comment on above: Performed By: #### 2 4321-2 #### [facility] [place] [facility] [address] [place] [address] 83780 Platelets (Bld) [#/Vol] 283 10*3/uL Normal 142-424 [facility] Comment on above: Performed By: #### 2 4321-2 #### [facility] [place] [facility] [address] [place] [address] 35130 RBC (Bld) [#/Vol] 3.67 10*6/uL Low 3.74-5.34 [facility] Comment on above: Performed By: #### 2 4321-2 #### [facility] [place] [facility] [address] [place] [address] 06992 WBC (Bld) [#/Vol] 5.5 10*3/uL Normal 4.6-10.2 [facility] Comment on above: Performed By: #### 2 4321-2 #### [facility] [place] [facility] [address] [place] [address] 11106 PT Coag (PPP) [Time]on 05-03 INR Coag (PPP) [Relative time] 1.6 {INR} Normal <=5.0 [facility] Comment on above: Result Comment: The recommended therapeutic INR range for most cardiac indications is 2.0-3.0 For high intensity therapy (i.e. mechanical heart valves), the recommended range is 2.5-3.5 Performed By: #### 5 902-2 #### [facility] [place] [facility] [address] [place] [address] 72664 Prothrombin timeon PT Coag (PPP) [Time] 17.7 s High 11.9-14.7 [facility] Comment on above: Performed By: #### 5 902-2 #### [facility] [address] [place] [address] 83161 Nuclear IgG IA Ql (S)on 04-04 Bacteria identified Cx Nom (U) 1 ORGANISM 202 Abnormal >606014 CFU/mL Escherichia coli The organism value for [...] Islt <=20 ug/ml Susceptible Invalid Interpretation Code [facility] Comment on above: Performed By: #### 2 4321-2 #### [facility] ([facility] [address] [place] [address] Bacteria, Urine Many Abnormal None [facility] Comment on above: Performed By: #### 2 1-2 #### [facility] [address] [place] [address] Bilirubin, Urine Negative Normal Negative [facility] Comment on above: Performed By: #### 2 4321-2 #### [facility] [address] [place] [address] Blood, Urine 3+ Abnormal Negative [facility] Comment on above: Performed By: #### 2 4321-2 #### [facility] [address] [place] [address] Clarity (U) Slightly Cloudy Abnormal Clear [facility] Comment on above: Performed By: #### 2 4321-2 #### [facility] [address] [place] [address] Color (U) Renata Abnormal Yellow [facility] Comment on above: Performed By: #### 2 4321-2 #### [facility] [address] [place] [address] Glucose Ql (U) Normal Normal Normal [facility] Comment on above: Performed By: #### 2 4321-2 #### [facility] [address] [place] [address] Ketones Ql (U) Negative Normal Negative [facility] Comment on above: Performed By: #### 2 4321-2 #### [facility] [address] [place] [address] Leukocytes, Urine 250 WBCs/mcL Abnormal Negative [facility] Comment on above: Performed By: #### 2 4321-2 #### [facility] [address] [place] [address] Mucus, UA Rare Abnormal None [facility] Comment on above: Performed By: #### 2 4321-2 #### [facility] [address] [place] [address] Nitrite, Urine Negative Normal Negative [facility] Comment on above: Performed By: #### 2 4321-2 #### [facility] [address] [place] [address] pH (U) 6.0 [pH] Normal 5.0-8.0 [facility] Comment on above: Performed By: #### 2 4321-2 #### [facility] [address] [place] [address] Protein (U) [Mass/Vol] 30 mg/dL Abnormal Negative [facility] Comment on above: Performed By: #### 2 4321-2 #### [facility] [address] [place] [address] RBC LM.HPF (Urine sed) [#/Area] 362 /[HPF] High 0-5 [facility] Comment on above: Performed By: #### 2 4321-2 #### [facility] ([facility] [address] [place] [address] 55010 Specific [place] Urine 1.012 Normal 1.002-1.030 [facility] Comment on above: Performed By: #### 2 4321-2 #### [facility] ([facility] [address] [place] [address] 31864 Squamous Epithelial, Urine Rare Abnormal None [facility] Comment on above: Performed By: #### 2 4321-2 #### [facility] ([facility] [address] [place] [address] 88627 Urobilinogen, Urine Normal Normal Normal [facility] Comment on above: Performed By: #### 2 4321-2 #### [facility] ([facility] [address] [place] [address] 79359 WBC LM.HPF (Urine sed) [#/Area] 47 /[HPF] High 0-5 [facility] Comment on above: Performed By: #### 2 4321-2 #### [facility] ([facility] [address] [place] [address] 98154 PT Coag (PPP) [Time]on 05-02 INR Coag (PPP) [Relative time] 1.4 {INR} Normal <=5.0 [facility] Comment on above: Result Comment: The recommended therapeutic INR range for most cardiac indications is 2.0-3.0 For high intensity therapy (i.e. mechanical heart valves), the recommended range is 2.5-3.5 Performed By: #### 5 902-2 #### [facility] ([facility] [address] [place] [address] 23394 Prothrombin timeon 3 PT Coag (PPP) [Time] 15.9 s High 11.9-14.7 M[facility] Comment on above: Performed By: #### 5 902-2 #### [facility] ([facility] [address] [place] [address] Basic metabolic 2000 panelon 05-01-2022 Anion gap [Moles/Vol] 8 mmol/L Normal 6-18 [facility] Comment on above: Performed By: #### 5 902-2 #### [facility] [address] [place] [address] 25393 Calcium [Mass/Vol] 8.6 mg/dL Low 8.9-10.3 [facility] Comment on above: Performed By: #### 5 902-2 #### [facility] [address] [place] [address] 80505 Chloride [Moles/Vol] 108 mmol/L High 98-107 Moun [facility] Comment on above: Performed By: #### 5 902-2 #### [facility] [address] [place] [address] 44726 CO2 [Moles/Vol] 25 mmol/L Normal 22-32 [facility] Comment on above: Performed By: #### 5 902-2 #### [facility] [address] [place] [address] Creatinine [Mass/Vol] 0.97 mg/dL Normal 0.60-1.30 [facility] Comment on above: Performed By: #### 5 902-2 #### [facility] [address] [place] [address] 94777 GFR/1.73 sq M.predicted among non-blacks MDRD (S/P/Bld) [Vol rate/Area] 65 mL/min/{1.73_m2} Normal >=60 [facility] Comment on above: Result Comment: Effe ctive January 08, 2022, calculation based on the?Chronic Kidney Disease Epidemiology Collaboration (CKD-EPI) equation refit?without adjustment for race. Performed By: #### 5 902-2 #### [facility] [address] [place] [address] Glucose [Mass/Vol] 82 mg/dL Normal 70-99 [facility] Comment on above: Performed By: #### 5 902-2 #### [facility] [address] [place] [address] 47263 Potassium [Moles/Vol] 4.5 mmol/L Normal 3.6-5.1 [facility] Comment on above: Performed By: #### 5 902-2 #### [facility] [address] [place] [address] 63757 Sodium [Moles/Vol] 141 mmol/L Normal 136-145 [facility] Comment on above: Performed By: #### 5 902-2 #### [facility] [address] [place] [address] 72171 Urea nitrogen [Mass/Vol] 34 mg/dL High 8-20 [facility] Comment on above: Performed By: #### 5 902-2 #### [facility] [address] [place] [address] 01456 Urea nitrogen/Creatinine [Mass ratio] 35.1 mg/mg High 12.0-20.0 [facility] Comment on above: Performed By: #### 5 902-2 #### [facility] [address] [place] [address] 05377 Hemogram and platelets WO di fferential panel (Bld)on 05-01-2022 Erythrocyte distribution width (RBC) [Ratio] 16.5 % High 11.0-14.8 [facility] Comment on above: Performed By: #### 2 4321-2 #### [facility] [address] [place] [address] 07039 Hematocrit (Bld) [Volume fraction] 33.7 % Low 34.3-47.9 [facility] Comment on above: Performed By: #### 2 4321-2 #### [facility] [address] [place] [address] 47280 Hemoglobin (Bld) [Mass/Vol] 10.3 g/dL Low 12.0-16.0 [facility] Comment on above: Performed By: #### 2 1-2 #### [facility] [address] [place] [address] MCH 28.1 pcg Normal 27.0-34.0 [facility] Comment on above: Performed By: #### 2 1-2 #### [facility] [address] [place] [address] 66719 MCHC (RBC) [Mass/Vol] 30.6 g/dL Low 30.8-35.3 [facility] Comment on above: Performed By: #### 2 1-2 #### [facility] [address] [place] [address] 22682 MCV (RBC) [Entitic vol] 92.1 fL Normal 80.0-97.0 [facility] Comment on above: Performed By: #### 2 1-2 #### [facility] [address] [place] [address] 70666 Platelet mean volume (Bld) [Entitic vol] 11.6 fL Normal 6.2-12.1 [facility] Comment on above: Performed By: #### 2 1-2 #### [facility] [address] [place] [address] 19841 Platelets (Bld) [#/Vol] 275 10*3/uL Normal 142-424 [facility] Comment on above: Performed By: #### 2 1-2 #### [facility] [address] [place] [address] 62926 RBC (Bld) [#/Vol] 3.66 10*6/uL Low 3.74-5.34 [facility] Comment on above: Performed By: #### 2 1-2 #### [facility] [address] [place] [address] 84657 WBC (Bld) [#/Vol] 5.9 10*3/uL Normal 4.6-10.2 [facility] Comment on above: Performed By: #### 2 4321-2 #### [facility] [address] [place] [address] PT Coag (PPP) [Time]on 05-01 INR Coag (PPP) [Relative time] 1.3 {INR} Normal <=5.0 [facility] Comment on above: Result Comment: The recommended therapeutic INR range for most cardiac indications is 2.0-3.0 For high intensity therapy (i.e. mechanical heart valves), the recommended range is 2.5-3.5 Performed By: #### 2 4321-2 #### [facility] [address] [place] [address] 14010 Prothrombin timeon 3 PT Coag (PPP) [Time] 15.6 s High 11.9-14.7 [facility] Comment on above: Performed By: #### 2 4321-2 #### [facility] [address] [place] [address] 46519 PT Coag (PPP) [Time]on 04-30 INR Coag (PPP) [Relative time] 1.4 {INR} Normal <=5.0 [facility] Comment on above: Result Comment: The recommended therapeutic INR range for most cardiac indications is 2.0-3.0 For high intensity therapy (i.e. mechanical heart valves), the recommended range is 2.5-3.5 Performed By: #### 5 902-2 #### [facility] [address] [place] [address] 25072 Prothrombin timeon 3 PT Coag (PPP) [Time] 16.0 s High 11.9-14.7 Moun [facility] Comment on above: Performed By: #### 5 902-2 #### [facility] [address] [place] [address] 13297 Basic metabolic 2000 panelon 04-29-2022 Anion gap [Moles/Vol] 6 mmol/L Normal 6-18 [facility] Comment on above: Performed By: #### 5 902-2 #### [facility] [place] [facility] [address] [place] [address] Calcium [Mass/Vol] 8.7 mg/dL Low 8.9-10.3 [facility] Comment on above: Performed By: #### 5 902-2 #### [facility] [address] [place] [address] Chloride [Moles/Vol] 103 mmol/L Normal 98-107 Moun [facility] Comment on above: Performed By: #### 5 902-2 #### [facility] [address] [place] [address] 41519 CO2 [Moles/Vol] 28 mmol/L Normal 22-32 [facility] Comment on above: Performed By: #### 5 902-2 #### [facility] [address] [place] [address] 67528 Creatinine [Mass/Vol] 1.14 mg/dL Normal 0.60-1.30 [facility] Comment on above: Performed By: #### 5 902-2 #### [facility] [address] [place] [address] 52594 GFR/1.73 sq M.predicted among non-blacks MDRD (S/P/Bld) [Vol rate/Area] 54 mL/min/{1.73_m2} Low >=60 [facility] Comment on above: Result Comment: Effe ctive January 08, 2022, calculation based on the?Chronic Kidney Disease Epidemiology Collaboration (CKD-EPI) equation refit?without adjustment for race. Performed By: #### 5 902-2 #### [facility] [place] [facility] [address] [place] [address] Glucose [Mass/Vol] 90 mg/dL Normal 70-99 [facility] Comment on above: Performed By: #### 5 902-2 #### [facility] [place] [facility] [address] [place] [address] 00453 Potassium [Moles/Vol] 4.8 mmol/L Normal 3.6-5.1 [facility] Comment on above: Performed By: #### 5 902-2 #### [facility] [address] [place] [address] Sodium [Moles/Vol] 137 mmol/L Normal 136-145 [facility] Comment on above: Performed By: #### 5 902-2 #### [facility] [address] [place] [address] 99421 Urea nitrogen [Mass/Vol] 35 mg/dL High 8-20 [facility] Comment on above: Performed By: #### 5 902-2 #### [facility] [address] [place] [address] 54594 Urea nitrogen/Creatinine [Mass ratio] 30.7 mg/mg High 12.0-20.0 [facility] Comment on above: Performed By: #### 5 902-2 #### [facility] [address] [place] [address] 60757 PT Coag (PPP) [Time]on 04-29 INR Coag (PPP) [Relative time] 1.4 {INR} Normal <=5.0 [facility] Comment on above: Result Comment: The recommended therapeutic INR range for most cardiac indications is 2.0-3.0 For high intensity therapy (i.e. mechanical heart valves), the recommended range is 2.5-3.5 Performed By: #### 5 902-2 #### [facility] [address] [place] [address] 50416 Prothrombin timeon PT Coag (PPP) [Time] 16.5 s High 11.9-14.7 M[facility] Comment on above: Performed By: #### 5 902-2 #### [facility] [address] [place] [address] 07536 PT Coag (PPP) [Time]on 04-28 INR Coag (PPP) [Relative time] 1.3 {INR} Normal <=5.0 [facility] Comment on above: Result Comment: The recommended therapeutic INR range for most cardiac indications is 2.0-3.0 For high intensity therapy (i.e. mechanical heart valves), the recommended range is 2.5-3.5 Performed By: #### 5 902-2 #### [facility] [address] [place] [address] Prothrombin timeon PT Coag (PPP) [Time] 15.6 s High 11.9-14.7 Moun [facility] Comment on above: Performed By: #### 5 902-2 #### [facility] [address] [place] [address] 78550 Basic metabolic 2000 panelon 04-27-2022 Anion gap [Moles/Vol] 10 mmol/L Normal 6-18 [facility] Comment on above: Performed By: #### 2 4321-2 #### [facility] [address] [place] [address] 29130 Calcium [Mass/Vol] 8.4 mg/dL Low 8.9-10.3 [facility] Comment on above: Performed By: #### 2 4321-2 #### [facility] [address] [place] [address] 38016 Chloride [Moles/Vol] 105 mmol/L Normal 98-[address] [facility] Comment on above: Performed By: #### 2 4321-2 #### [facility] [place] [facility] [address] [place] [address] 90359 CO2 [Moles/Vol] 22 mmol/L Normal 22-32 [facility] Comment on above: Performed By: #### 2 4321-2 #### [facility] [place] [facility] [address] [place] [address] 53796 Creatinine [Mass/Vol] 1.12 mg/dL Normal 0.60-1.30 [facility] Comment on above: Performed By: #### 2 4321-2 #### [facility] [place] [facility] [address] [place] [address] GFR/1.73 sq M.predicted among non-blacks MDRD (S/P/Bld) [Vol rate/Area] 55 mL/min/{1.73_m2} Low >=60 [facility] Comment on above: Result Comment: Effe ctive January 08, 2022, calculation based on the?Chronic Kidney Disease Epidemiology Collaboration (CKD-EPI) equation refit?without adjustment for race. Performed By: #### 2 4321-2 #### [facility] [place] [facility] [address] [place] [address] 76068 Glucose [Mass/Vol] 82 mg/dL Normal 70-99 [facility] Comment on above: Performed By: #### 2 4321-2 #### [facility] [address] [place] [address] 64528 Potassium [Moles/Vol] 5.6 mmol/L High 3.6-5.1 [facility] Comment on above: Performed By: #### 2 4321-2 #### [facility] [place] [facility] [address] [place] [address] 73563 Sodium [Moles/Vol] 137 mmol/L Normal 136-145 [facility] Comment on above: Performed By: #### 2 4321-2 #### [facility] [address] [place] [address] 89263 Urea nitrogen [Mass/Vol] 35 mg/dL High 8-20 [facility] Comment on above: Performed By: #### 2 4321-2 #### [facility] [place] [facility] [address] [place] [address] 98880 Urea nitrogen/Creatinine [Mass ratio] 31.3 mg/mg High 12.0-20.0 [facility] Comment on above: Performed By: #### 2 4321-2 #### [facility] [place] [facility] [address] [place] [address] 58866 PT Coag (PPP) [Time]on 04-27 INR Coag (PPP) [Relative time] 1.2 {INR} Normal <=5.0 [facility] Comment on above: Result Comment: The recommended therapeutic INR range for most cardiac indications is 2.0-3.0 For high intensity therapy (i.e. mechanical heart valves), the recommended range is 2.5-3.5 Performed By: #### 5 902-2 #### [facility] [place] [facility] [address] [place] [address] Prothrombin timeon 3 PT Coag (PPP) [Time] 14.5 s Normal 11.9-14.7 [facility] Comment on above: Performed By: #### 5 902-2 #### [facility] [address] [place] [address] 71709 PT Coag (PPP) [Time]on 04-26 INR Coag (PPP) [Relative time] 1.2 {INR} Normal <=5.0 [facility] Comment on above: Result Comment: The recommended therapeutic INR range for most cardiac indications is 2.0-3.0 For high intensity therapy (i.e. mechanical heart valves), the recommended range is 2.5-3.5 Performed By: #### 2 4321-2 #### [facility] [address] [place] [address] Prothrombin timeon 3 PT Coag (PPP) [Time] 14.3 s Normal 11.9-14.7 [facility] Comment on above: Performed By: #### 2 4321-2 #### [facility] [address] [place] [address] 13191 Basic metabolic 2000 panelon 04-25-2022 Anion gap [Moles/Vol] 7 mmol/L Normal 6-18 [facility] Comment on above: Performed By: #### 2 4321-2 #### [facility] [address] [place] [address] 17731 Calcium [Mass/Vol] 8.5 mg/dL Low 8.9-10.3 [facility] Comment on above: Performed By: #### 2 4321-2 #### [facility] [address] [place] [address] Chloride [Moles/Vol] 104 mmol/L Normal 98-107 M[facility] Comment on above: Performed By: #### 2 4321-2 #### [facility] [address] [place] [address] 91951 CO2 [Moles/Vol] 30 mmol/L Normal 22-32 [facility] Comment on above: Performed By: #### 2 4321-2 #### [facility] [address] [place] [address] 64697 Creatinine [Mass/Vol] 1.00 mg/dL Normal 0.60-1.30 [facility] Comment on above: Performed By: #### 2 4321-2 #### [facility] ([facility] [address] [place] [address] 08384 GFR/1.73 sq M.predicted among non-blacks MDRD (S/P/Bld) [Vol rate/Area] 63 mL/min/{1.73_m2} Normal >=60 [facility] Comment on above: Result Comment: Effe ctive January 08, 2022, calculation based on the?Chronic Kidney Disease Epidemiology Collaboration (CKD-EPI) equation refit?without adjustment for race. Performed By: #### 2 4321-2 #### [facility] ([facility] [address] [place] [address] [id number] Glucose [Mass/Vol] 89 mg/dL Normal 70-99 [facility] Comment on above: Performed By: #### 2 4321-2 #### [facility] [address] [place] [address] [id number] Potassium [Moles/Vol] 5.2 mmol/L High 3.6-5.1 [facility] Comment on above: Performed By: #### 2 4321-2 #### [facility] [facility] [address] [place] [address] Sodium [Moles/Vol] 141 mmol/L Normal 136-145 [facility] Comment on above: Performed By: #### 2 4321-2 #### [facility] [place] ([facility] [address] [place] [address] Urea nitrogen [Mass/Vol] 25 mg/dL High 8-20 [facility] Comment on above: Performed By: #### 2 4321-2 #### [facility] [place] [facility] [address] [place] [address] 329[address] Urea nitrogen/Creatinine [Mass ratio] 25.0 mg/mg High 12.0-20.0 [facility] Comment on above: Performed By: #### 2 4321-2 #### [facility] [place] [facility] [address] [place] [address] 54868 PT Coag (PPP) [Time]on 04-25 INR Coag (PPP) [Relative time] 1.2 {INR} Normal <=5.0 [facility] Comment on above: Result Comment: The recommended therapeutic INR range for most cardiac indications is 2.0-3.0 For high intensity therapy (i.e. mechanical heart valves), the recommended range is 2.5-3.5 Performed By: #### 5 902-2 #### [facility] [place] [facility] [address] [place] [address]270 Prothrombin timeon 3 PT Coag (PPP) [Time] 14.0 s Normal 11.9-14.7 [facility] Comment on above: Performed By: #### 5 902-2 #### [facility] [place] [facility] [address] [place] [address] 06014 Basic metabolic 2000 panelon 04-24-2022 Anion gap [Moles/Vol] 7 mmol/L Normal 6-18 [facility] Comment on above: Performed By: #### 2 4321-2 #### [facility] [place] [facility] [address] [place] [address]246 Calcium [Mass/Vol] 8.7 mg/dL Low 8.9-10.3 [facility] Comment on above: Performed By: #### 2 4321-2 #### [facility] [place] [facility] [address] [place] [address] Chloride [Moles/Vol] 106 mmol/L Normal 98-107 [facility] Comment on above: Performed By: #### 2 4321-2 #### [facility] [place] [facility] [address] [place] [address] CO2 [Moles/Vol] 28 mmol/L Normal 22-32 [facility] Comment on above: Performed By: #### 2 4321-2 #### [facility] [place] [facility] [address] [place] [address] Creatinine [Mass/Vol] 1.14 mg/dL Normal 0.60-1.30 [facility] Comment on above: Performed By: #### 2 4321-2 #### [facility] [place] [address] [place] [address] 21714 GFR/1.73 sq M.predicted among non-blacks MDRD (S/P/Bld) [Vol rate/Area] 54 mL/min/{1.73_m2} Low >=60 [facility] Comment on above: Result Comment: Effe ctive January 08, 2022, calculation based on the?Chronic Kidney Disease Epidemiology Collaboration (CKD-EPI) equation refit?without adjustment for race. Performed By: #### 2 4321-2 #### [facility] [place] [facility] [address] [place] [address] Glucose [Mass/Vol] 95 mg/dL Normal 70-99 [facility] Comment on above: Performed By: #### 2 4321-2 #### [facility] [place] [facility] [address] [place] [address] Potassium [Moles/Vol] 5.3 mmol/L High 3.6-5.1 [facility] Comment on above: Performed By: #### 2 4321-2 #### [facility] [place] [facility] [address] [place] [address] Sodium [Moles/Vol] 141 mmol/L Normal 136-145 [facility] Comment on above: Performed By: #### 2 4321-2 #### [facility] [place] [facility] [address] [place] [address] Urea nitrogen [Mass/Vol] 25 mg/dL High 8-20 [facility] Comment on above: Performed By: #### 2 4321-2 #### [facility] [place] [facility] [address] [place] [address] 89171 Urea nitrogen/Creatinine [Mass ratio] 21.9 mg/mg High 12.0-20.0 [facility] Comment on above: Performed By: #### 2 4321-2 #### [facility] [address] [place] [address] 25154 Hemogram and platelets WO di fferential panel (Bld)on 04-24-2022 Erythrocyte distribution width (RBC) [Ratio] 16.9 % High 11.0-14.8 [facility] Comment on above: Performed By: #### 2 4317-0 #### [facility] [address] [place] [address] 12054 Hematocrit (Bld) [Volume fraction] 35.3 % Normal 34.3-47.9 [facility] Comment on above: Performed By: #### 2 4317-0 #### [facility] [place] [facility] [address] [place] [address] 83542 Hemoglobin (Bld) [Mass/Vol] 10.9 g/dL Low 12.0-16.0 [facility] Comment on above: Performed By: #### 2 4317-0 #### [facility] [place] [facility] [address] [place] [address] 35075 Immature Platelet Fraction 14.0 % High 1.4-10.8 [facility] Comment on above: Performed By: #### 2 4317-0 #### [facility] [place] [facility] [address] [place] [address] MCH 28.9 pcg Normal 27.0-34.0 [facility] Comment on above: Performed By: #### 2 4316-0 #### [facility] [place] [facility] [address] [place] [address] 48044 MCHC (RBC) [Mass/Vol] 30.9 g/dL Normal 30.8-35.3 [facility] Comment on above: Performed By: #### 2 4316-0 #### [facility] [place] [facility] [address] [place] [address] 25749 MCV (RBC) [Entitic vol] 93.6 fL Normal 80.0-97.0 [facility] Comment on above: Performed By: #### 2 4316-0 #### [facility] [place] [facility] [address] [place] [address] 05407 Platelet mean volume (Bld) [Entitic vol] 12.9 fL High 6.2-12.1 [facility] Comment on above: Performed By: #### 2 4316-0 #### [facility] [place] [facility] [address] [place] [address] 38294 Platelets (Bld) [#/Vol] 160 10*3/uL Normal 142-424 [facility] Comment on above: Performed By: #### 2 4316-0 #### [facility] [place] [facility] [address] [place] [address] 32789 RBC (Bld) [#/Vol] 3.77 10*6/uL Normal 3.74-5.34 [facility] Comment on above: Performed By: #### 2 7-0 #### [facility] [place] [facility] [address] [place] [address] 55020 WBC (Bld) [#/Vol] 7.7 10*3/uL Normal 4.6-10.2 [facility] Comment on above: Performed By: #### 2 7-0 #### [facility] [place] [facility] [address] [place] [address] 37041 PT Coag (PPP) [Time]on 04-24 INR Coag (PPP) [Relative time] 1.1 {INR} Normal <=5.0 [facility] Comment on above: Result Comment: The recommended therapeutic INR range for most cardiac indications is 2.0-3.0 For high intensity therapy (i.e. mechanical heart valves), the recommended range is 2.5-3.5 Performed By: #### 2 4321-2 #### [facility] [place] [facility] [address] [place] [address] 57120 Prothrombin timeon PT Coag (PPP) [Time] 13.9 s Normal 11.9-14.7 [facility] Comment on above: Performed By: #### 2 4321-2 #### [facility] [place] [facility] [address] [place] [address] 33727 Basic metabolic 2000 panelon 04-23-2022 Anion gap [Moles/Vol] 8 mmol/L Normal 6-18 [facility] Comment on above: Performed By: #### 2 4321-2 #### [facility] [place] [facility] [address] [place] [address] 02784 Calcium [Mass/Vol] 8.5 mg/dL Low 8.9-10.3 [facility] Comment on above: Performed By: #### 2 4321-2 #### [facility] [place] [facility] [address] [place] [address] 28623 Chloride [Moles/Vol] 106 mmol/L Normal 98-107 [facility] Comment on above: Performed By: #### 2 4321-2 #### [facility] [place] [facility] [address] [place] [address] 15165 CO2 [Moles/Vol] 28 mmol/L Normal 22-32 [facility] Comment on above: Performed By: #### 2 4321-2 #### [facility] [place] [facility] [address] [place] [address] 95038 Creatinine [Mass/Vol] 1.01 mg/dL Normal 0.60-1.30 [facility] Comment on above: Performed By: #### 2 4321-2 #### [facility] [place] [facility] [address] [place] [address] GFR/1.73 sq M.predicted among non-blacks MDRD (S/P/Bld) [Vol rate/Area] 62 mL/min/{1.73_m2} Normal >=60 [facility] Comment on above: Result Comment: Effe ctive January 08, 2022, calculation based on the?Chronic Kidney Disease Epidemiology Collaboration (CKD-EPI) equation refit?without adjustment for race. Performed By: #### 2 4321-2 #### [facility] [place] [facility] [address] [place] [address] 34022 Glucose [Mass/Vol] 108 mg/dL High 70-99 [facility] Comment on above: Performed By: #### 2 4321-2 #### [facility] [place] [facility] [address] [place] [address] 87874 Potassium [Moles/Vol] 5.0 mmol/L Normal 3.6-5.1 [facility] Comment on above: Performed By: #### 2 4321-2 #### [facility] [place] [facility] [address] [place] [address] 89784 Sodium [Moles/Vol] 142 mmol/L Normal 136-145 [facility] Comment on above: Performed By: #### 2 4321-2 #### [facility] [place] [facility] [address] [place] [address] 80887 Urea nitrogen [Mass/Vol] 23 mg/dL High 8-20 [facility] Comment on above: Performed By: #### 2 4321-2 #### [facility] [place] [facility] [address] [place] [address] 07412 Urea nitrogen/Creatinine [Mass ratio] 22.8 mg/mg High 12.0-20.0 [facility] Comment on above: Performed By: #### 2 4321-2 #### [facility] [place] [facility] [address] [place] [address] Hemogram and platelets WO di fferential panel (Bld)on 04-23-2022 Basophils (Bld) [#/Vol] 0.06 10*3/uL Normal 0.00-0.20 [facility] Comment on above: Performed By: #### 2 4321-2 #### [facility] [place] [facility] [address] [place] [address] 89862 Basophils/100 WBC (Bld) 0.7 % Normal 0.0-2.0 [facility] Comment on above: Performed By: #### 2 1-2 #### [facility] [address] [place] [address] 44914 Eosinophils (Bld) [#/Vol] 0.17 10*3/uL Normal 0.00-0.70 [facility] Comment on above: Performed By: #### 2 1-2 #### [facility] [place] [facility] [address] [place] [address] 26871 Eosinophils/100 WBC (Bld) 2.1 % Normal 0.0-7.0 [facility] Comment on above: Performed By: #### 2 1-2 #### [facility] [place] [facility] [address] [place] [address] 72345 Erythrocyte distribution width (RBC) [Ratio] 17.0 % High 11.0-14.8 [facility] Comment on above: Performed By: #### 2 1-2 #### [facility] [place] [facility] [address] [place] [address] 57287 Hematocrit (Bld) [Volume fraction] 34.1 % Low 34.3-47.9 [facility] Comment on above: Performed By: #### 2 1-2 #### [facility] [place] [facility] [address] [place] [address] 87540 Hemoglobin (Bld) [Mass/Vol] 10.4 g/dL Low 12.0-16.0 [facility] Comment on above: Performed By: #### 2 4321-2 #### [facility] [place] [facility] [address] [place] [address] Immature granulocytes (Bld) [#/Vol] 0.02 10*3/uL Normal 0.00-0.10 [facility] Comment on above: Performed By: #### 2 1-2 #### [facility] [place] [facility] [address] [place] [address] 45805 Immature granulocytes/100 WBC (Bld) 0.2 % Normal 0.0-1.2 [facility] Comment on above: Performed By: #### 2 1-2 #### [facility] [address] [place] [address] 01608 Lymphocytes (Bld) [#/Vol] 2.24 10*3/uL Normal 1.00-4.80 [facility] Comment on above: Performed By: #### 2 1-2 #### [facility] [address] [place] [address] 02610 Lymphocytes/100 WBC (Bld) 27.4 % Normal 17.9-49.6 [facility] Comment on above: Performed By: #### 2 1-2 #### [facility] [address] [place] [address] 44319 MCH 28.4 pcg Normal 27.0-34.0 [facility] Comment on above: Performed By: #### 2 4321-2 #### [facility] [place] [facility] [address] [place] [address] 01848 MCHC (RBC) [Mass/Vol] 30.5 g/dL Low 30.8-35.3 [facility] Comment on above: Performed By: #### 2 1-2 #### [facility] [place] [facility] [address] [place] [address] 92249 MCV (RBC) [Entitic vol] 93.2 fL Normal 80.0-97.0 [facility] Comment on above: Performed By: #### 2 4321-2 #### [facility] [place] [facility] [address] [place] [address] Monocytes (Bld) [#/Vol] 0.98 10*3/uL High 0.00-0.90 [facility] Comment on above: Performed By: #### 2 1-2 #### [facility] [place] [facility] [address] [place] [address] 03857 Monocytes/100 WBC (Bld) 12.0 % Normal 0.0-12.0 [facility] Comment on above: Performed By: #### 2 1-2 #### [facility] [address] [place] [address] 86114 Neutrophils Absolute 4.71 K/mcL Normal 1.80-7.70 [facility] Comment on above: Performed By: #### 2 1-2 #### [facility] [place] [facility] [address] [place] [address] 51744 Neutrophils/100 WBC (Bld) 57.6 % Normal 38.1-75.5 [facility] Comment on above: Performed By: #### 2 1-2 #### [facility] [address] [place] [address] 44634 Platelet mean volume (Bld) [Entitic vol] 13.0 fL High 6.2-12.1 [facility] Comment on above: Performed By: #### 2 1-2 #### [facility] [place] [facility] [address] [place] [address] 60355 Platelets (Bld) [#/Vol] 175 10*3/uL Normal 142-424 [facility] Comment on above: Performed By: #### 2 1-2 #### [facility] [place] [facility] [address] [place] [address] 15551 RBC (Bld) [#/Vol] 3.66 10*6/uL Low 3.74-5.34 [facility] Comment on above: Performed By: #### 2 1-2 #### [facility] [address] [place] [address] WBC (Bld) [#/Vol] 8.2 10*3/uL Normal 4.6-10.2 [facility] Comment on above: Performed By: #### 2 4321-2 #### [facility] [address] [place] [address] PT Coag (PPP) [Time]on 04-23 INR Coag (PPP) [Relative time] 1.1 {INR} Normal <=5.0 [facility] Comment on above: Result Comment: The recommended therapeutic INR range for most cardiac indications is 2.0-3.0 For high intensity therapy (i.e. mechanical heart valves), the recommended range is 2.5-3.5 Performed By: #### 2 4321-2 #### [facility] [address] [place] [address] Prothrombin timeon PT Coag (PPP) [Time] 13.4 s Normal 11.9-14.7 [facility] Comment on above: Performed By: #### 2 4321-2 #### [facility] [address] [place] [address] 81492 Basic metabolic 2000 panelon 04-22-2022 Anion gap [Moles/Vol] 6 mmol/L Normal 6-18 [facility] Comment on above: Performed By: #### 1 988-5 #### [facility] [address] [facility] [place] [address] Calcium [Mass/Vol] 8.3 mg/dL Low 8.9-10.3 [facility] Comment on above: Performed By: #### 1 988-5 #### [facility] [address] [place] [address] Chloride [Moles/Vol] 107 mmol/L Normal 98-107 [facility] Comment on above: Performed By: #### 1 988-5 #### [facility] [address] [place] [address] CO2 [Moles/Vol] 25 mmol/L Normal 22-32 [facility] Comment on above: Performed By: #### 1 988-5 #### [facility] [address] [place] [address] Creatinine [Mass/Vol] 1.06 mg/dL Normal 0.60-1.30 [facility] Comment on above: Performed By: #### 1 988-5 #### [facility] [address] [place] [address] GFR/1.73 sq M.predicted among non-blacks MDRD (S/P/Bld) [Vol rate/Area] 59 mL/min/{1.73_m2} Low >=60 [facility] Comment on above: Result Comment: Effe ctive January 08, 2022, calculation based on the?Chronic Kidney Disease Epidemiology Collaboration (CKD-EPI) equation refit?without adjustment for race. Performed By: #### 1 988-5 #### [facility] [address] [place] [address] Glucose [Mass/Vol] 104 mg/dL High 70-99 [facility] Comment on above: Performed By: #### 1 988-5 #### [facility] [address] [place] [address] Potassium [Moles/Vol] 4.7 mmol/L Normal 3.6-5.1 [facility] Comment on above: Performed By: #### 1 988-5 #### [facility] [address] [place] [address] Sodium [Moles/Vol] 138 mmol/L Normal 136-145 [facility] Comment on above: Performed By: #### 1 988-5 #### [facility] [address] [place] [address] Urea nitrogen [Mass/Vol] 24 mg/dL High 8-20 [facility] Comment on above: Performed By: #### 1 988-5 #### [facility] [address] [place] [address] Urea nitrogen/Creatinine [Mass ratio] 22.6 mg/mg High 12.0-20.0 [facility] Comment on above: Performed By: #### 1 988-5 #### [facility] [address] [facility] [place] [address] Anion gap [Moles/Vol] 6 mmol/L 6 - 18 [facility] Calcium [Mass/Vol] 8.3 mg/dL Low 8.9 - 10. 3 mg/dL [facility] Chloride [Moles/Vol] 107 mmol/L 98 - 10 7 mmol/L [facility] CO2 [Moles/Vol] 25 mmol/L 22 - 32 mmol/L [facility] Creatinine [Mass/Vol] 1.06 mg/dL 0.60 - 1.30 mg/dL [employer] [facility] GFR/1.73 sq M.predicted among non-blacks MDRD (S/P/Bld) [Vol rate/Area] 59 mL/min/{1.73_m2} Low - PINF [facility] Comment on above: Effective January 08, 2022, calculation based on the Chronic Kidney Disease Epidemiology Collaboration (CKD-EPI) equation refit without adjustment for race. Glucose [Mass/Vol] 104 mg/dL High 70 - 99 mg/dL [employer] Interpretation and review of laboratory results Abnormal [employer] [facility] Potassium [Moles/Vol] 4.7 mmol/L 3.6 - 5.1 mmol/L [employer] Sodium [Moles/Vol] 138 mmol/L 136 - 145 mmol/L [employer] Urea nitrogen [Mass/Vol] 24 mg/dL High 8 - 20 mg/dL [employer] [facility] Urea nitrogen/Creatinine [Mass ratio] 22.6 mg/mg High 12.0 - 20.0 [facility] [employer] Hemogram and platelets WO di fferential panel (Bld)on 04-22-2022 Erythrocyte distribution width (RBC) [Ratio] 16.4 % High 11.0-14.8 [facility] Comment on above: Performed By: #### 1 988-5 #### [facility] [address] [place] [address]805 Hematocrit (Bld) [Volume fraction] 35.8 % Normal 34.3-47.9 [facility] Comment on above: Performed By: #### 1 988-5 #### [facility] [address] [place] [address] 58518 Hemoglobin (Bld) [Mass/Vol] 10.9 g/dL Low 12.0-16.0 [facility] Comment on above: Performed By: #### 1 988-5 #### [facility] [address] [place] [address] 95788 MCH 28.2 pcg Normal 27.0-34.0 [facility] Comment on above: Performed By: #### 1 988-5 #### [facility] [address] [place] [address] 11996 MCHC (RBC) [Mass/Vol] 30.4 g/dL Low 30.8-35.3 [facility] Comment on above: Performed By: #### 1 988-5 #### [facility] [address] [place] [address] 39864 MCV (RBC) [Entitic vol] 92.5 fL Normal 80.0-97.0 [facility] Comment on above: Performed By: #### 1 988-5 #### [facility] [address] [place] [address] 68394 Platelet mean volume (Bld) [Entitic vol] 12.4 fL High 6.2-12.1 [facility] Comment on above: Performed By: #### 1 988-5 #### [facility] [address] [place] [address] Platelets (Bld) [#/Vol] 158 10*3/uL Normal 142-424 [facility] Comment on above: Performed By: #### 1 988-5 #### [facility] [address] [place] [address] 73370 RBC (Bld) [#/Vol] 3.87 10*6/uL Normal 3.74-5.34 [facility] Comment on above: Performed By: #### 1 988-5 #### [facility] [address] [place] [address] 25864 WBC (Bld) [#/Vol] 9.0 10*3/uL Normal 4.6-10.2 [facility] Comment on above: Performed By: #### 1 988-5 #### [facility] [address] [place] [address] 00656 Erythrocyte distribution width (RBC) [Ratio] 16.4 % High 11.0 - 14.8 % [facility] Hematocrit (Bld) [Volume fraction] 35.8 % 34.3 - 47.9 % [facility] Hemoglobin (Bld) [Mass/Vol] 10.9 g/dL Low 12.0 - 16.0 g/dL [facility] Interpretation and review of laboratory results Abnormal [facility] MCH (RBC) [Entitic mass] 28.2 pg [facility] MCHC (RBC) [Mass/Vol] 30.4 g/dL Low 30.8 - 35.3 g/dL [facility] MCV (RBC) [Entitic vol] 92.5 fL [facility] Platelet mean volume (Bld) [Entitic vol] 12.4 fL High [facility] Platelets (Bld) [#/Vol] 158 10*3/uL [facility] RBC (Bld) [#/Vol] 3.87 10*6/uL [facility] WBC (Bld) [#/Vol] 9.0 10*3/uL [facility] PT Coag (PPP) [Time]on 04-22 INR Coag (PPP) [Relative time] 0.9 {INR} Normal <=5.0 [facility] Comment on above: Result Comment: The recommended therapeutic INR range for most cardiac indications is 2.0-3.0 For high intensity therapy (i.e. mechanical heart valves), the recommended range is 2.5-3.5 Performed By: #### 1 988-5 #### [facility] [address] [place] [address] INR Coag (PPP) [Relative time] 0.9 {INR} NINF - 5.0 [facility] Comment on above: The recommended ther apeutic INR range for most cardiac indications is 2.0-3.0 For high intensity therapy (i.e. mechanical heart valves), the recommended range is 2.5-3.5 Interpretation and review of laboratory results Normal [facility] PT Coag (Bld) [Time] 12.6 s [facility] Prothrombin timeon 3 PT Coag (PPP) [Time] 12.6 s Normal 11.9-14.7 [facility] [facility] Comment on above: Performed By: #### 1 988-5 #### [facility] [address] [place] [address] SARS-CoV-2 (COVID-19) RNA NA A+probe Ql (Resp)on 04-22-2022 Interpretation and review of laboratory results Normal [facility] SARS-CoV-2 (COVID-19) RdRp gene REBECCA+probe Ql (Resp) Not detected Not Detected [facility] SARS-CoV-2 RNA Resp Ql REBECCA+p robeon 04-22-2022 SARS-CoV-2 (COVID-19) RNA REBECCA+probe Ql (Resp) Not detected Normal Not Detected [facility] Comment on above: Performed By: #### 5 75-1 #### [facility] [address] [place] [address] Basic metabolic 2000 panelon 04-21-2022 Anion gap [Moles/Vol] 9 mmol/L Normal 6-18 [facility] Comment on above: Performed By: #### 1 988-5 #### [facility] [address] [place] [address] Calcium [Mass/Vol] 8.2 mg/dL Low 8.9-10.3 [facility] Comment on above: Performed By: #### 1 988-5 #### [facility] [address] [place] [address] Chloride [Moles/Vol] 108 mmol/L High 98-107 [facility] Comment on above: Performed By: #### 1 988-5 #### [facility] [address] [place] [address] CO2 [Moles/Vol] 22 mmol/L Normal 22-32 [facility] Comment on above: Performed By: #### 1 988-5 #### [facility] [address] [place] [address] Creatinine [Mass/Vol] 1.19 mg/dL Normal 0.60-1.30 [facility] Comment on above: Performed By: #### 1 988-5 #### [facility] [address] [place] [address] GFR/1.73 sq M.predicted among non-blacks MDRD (S/P/Bld) [Vol rate/Area] 51 mL/min/{1.73_m2} Low >=60 [facility] Comment on above: Result Comment: Effe ctive January 08, 2022, calculation based on the?Chronic Kidney Disease Epidemiology Collaboration (CKD-EPI) equation refit?without adjustment for race. Performed By: #### 1 988-5 #### [facility] [address] [place] [address] Glucose [Mass/Vol] 135 mg/dL High 70-99 [facility] Comment on above: Performed By: #### 1 988-5 #### [facility] [address] [facility] [place] [address] Potassium [Moles/Vol] 4.6 mmol/L Normal 3.6-5.1 [facility] Comment on above: Performed By: #### 1 988-5 #### [facility] [address] [facility] [place] [place] [address] Sodium [Moles/Vol] 139 mmol/L Normal 136-145 [facility] Comment on above: Performed By: #### 1 988-5 #### [facility] [address] [place] [address] Urea nitrogen [Mass/Vol] 19 mg/dL Normal 8-20 [facility] Comment on above: Performed By: #### 1 988-5 #### [facility] [address] [place] [address] Urea nitrogen/Creatinine [Mass ratio] 16.0 mg/mg Normal 12.0-20.0 [facility] Comment on above: Performed By: #### 1 988-5 #### [facility] [address] [place] [address] Anion gap [Moles/Vol] 9 mmol/L 6 - 18 [facility] Calcium [Mass/Vol] 8.2 mg/dL Low 8.9 - 10. 3 mg/dL [facility] Chloride [Moles/Vol] 108 mmol/L High 98 - 10 7 mmol/L [facility] CO2 [Moles/Vol] 22 mmol/L 22 - 32 mmol/L [facility] Creatinine [Mass/Vol] 1.19 mg/dL 0.60 - 1.30 mg/dL [facility] GFR/1.73 sq M.predicted among non-blacks MDRD (S/P/Bld) [Vol rate/Area] 51 mL/min/{1.73_m2} Low - PINF [facility] Comment on above: Effective January 08, 2022, calculation based on the Chronic Kidney Disease Epidemiology Collaboration (CKD-EPI) equation refit without adjustment for race. Glucose [Mass/Vol] 135 mg/dL High 70 - 99 mg/dL [facility] Interpretation and review of laboratory results Abnormal [facility] Potassium [Moles/Vol] 4.6 mmol/L 3.6 - 5.1 mmol/L [facility] Sodium [Moles/Vol] 139 mmol/L 136 - 145 mmol/L [facility] Urea nitrogen [Mass/Vol] 19 mg/dL 8 - 20 mg/dL [facility] Urea nitrogen/Creatinine [Mass ratio] 16.0 mg/mg 12.0 - 20.0 [facility] Hemogram and platelets WO di fferential panel (Bld)on 04-21-2022 Erythrocyte distribution width (RBC) [Ratio] 15.9 % High 11.0-14.8 [facility] Comment on above: Performed By: #### 1 988-5 #### [facility] [address] [place] [address] Hematocrit (Bld) [Volume fraction] 37.0 % Normal 34.3-47.9 [facility] Comment on above: Performed By: #### 1 988-5 #### [facility] [address] [place] [address] Hemoglobin (Bld) [Mass/Vol] 11.6 g/dL Low 12.0-16.0 [facility] Comment on above: Performed By: #### 1 988-5 #### [facility] [address] [place] [address] MCH 28.2 pcg Normal 27.0-34.0 [facility] Comment on above: Performed By: #### 1 988-5 #### [facility] [address] [place] [address] MCHC (RBC) [Mass/Vol] 31.4 g/dL Normal 30.8-35.3 [facility] Comment on above: Performed By: #### 1 988-5 #### [facility] [address] [place] [address] MCV (RBC) [Entitic vol] 90.0 fL Normal 80.0-97.0 [facility] Comment on above: Performed By: #### 1 988-5 #### [facility] [address] [place] [address] Platelet mean volume (Bld) [Entitic vol] 12.3 fL High 6.2-12.1 [facility] Comment on above: Performed By: #### 1 988-5 #### [facility] [address] [place] [address] Platelets (Bld) [#/Vol] 220 10*3/uL Normal 142-424 [facility] Comment on above: Performed By: #### 1 988-5 #### [facility] [address] [place] [address] RBC (Bld) [#/Vol] 4.11 10*6/uL Normal 3.74-5.34 [facility] Comment on above: Performed By: #### 1 988-5 #### [facility] [address] [place] [address] WBC (Bld) [#/Vol] 13.5 10*3/uL High 4.6-10.2 [facility] Comment on above: Performed By: #### 1 988-5 #### [facility] [address] [place] [address] Erythrocyte distribution width (RBC) [Ratio] 15.9 % High 11.0 - 14.8 % [facility] Hematocrit (Bld) [Volume fraction] 37.0 % 34.3 - 47.9 % [facility] Hemoglobin (Bld) [Mass/Vol] 11.6 g/dL Low 12.0 - 16.0 g/dL [facility] Interpretation and review of laboratory results Abnormal [facility] MCH (RBC) [Entitic mass] 28.2 pg [facility] MCHC (RBC) [Mass/Vol] 31.4 g/dL 30.8 - 35.3 g/dL [facility] MCV (RBC) [Entitic vol] 90.0 fL [facility] Platelet mean volume (Bld) [Entitic vol] 12.3 fL High [facility] th Platelets (Bld) [#/Vol] 220 10*3/uL [facility] RBC (Bld) [#/Vol] 4.11 10*6/uL [facility] WBC (Bld) [#/Vol] 13.5 10*3/uL High [facility] Pathology studyOrdered By: Valerie Segura on 04-21-2022 Citation Rick (Reference lab test) n1jkbABeAXXtoCZrSGWuT BjepvKmPFWymLWfS8Ovap ulTUzlPE6hZF3xoDnkfJF ucHGdHVLyUbLtq5mtn622 oDQxd8mqDBISorozsMp6g 3wqNRUNLDxiVDTCGQv1oA rnJ61ot8V9TinvV3rvAYM jZLdnpgAtvmR2BLRhbJMa ZKu2VDAzoQWrpoFmMlDtZ XZizAQzuRG5IOZmZB0ljm faPVvlJKzzIOEjzeN9HCJ mvUEnC3LcBYAfYL6ffcvk VFK1FOjhVVMmWAQ8SrPxF CArt0Lynpq8RpJyjNEgOD xwbGFpblxpXGYxXGZzMTh lP2FoEYIkQBX3WIHdcscc VKaeR53qsO2xYK15ARves cAdZBJrz7XfRAZdLPKaDP qfVFVqqtVcYNjyyA3hh2p 0KLyrQh4vDUAshsgzROM1 KzUqBI99JecynZDsWFLQq mUsIENvbHVtYnVzLCBPaG smBPNdDhK4OnZYxTMwl3V pl8TdAkIyfJUcbE2hxMfq lnW0WBVahNYpQy5wqZHaI lxwYXJ9 [employer] Work Phone: Microscopic description Rick (Endomyocardium) y6ydcGWwIELtbIEBGHKxQ TEmKZ7tzBsvqYp7oQgvSF KyeyO1vDAhBOnbp0eqAEL 5o5mqtrRPSyzbPBOdSO0g GBycXJMuGA5yMcNtCLQrZ mYyXHBhcGVydzEyMjQwXH GcuRParOF6RCAtZM7ccco jMCjtGYocBKUdkmC0CPWw gMNfC1VvRAIrXQ0bglogS RF7REDPFryuIj7ngKLomS ANCntcZjFcZmNoYXJzZXQ nXPJfjFfqALEtCTv2bO2U s4meRhhnR3dzkzXrgOYaY s3hjBCFCMcyUXCGZRm0mQ 8VGTOhC2OrCM0Ai9cpVSI qrGXgMXW6MOmph5ipQXxq XZL2PLXnFFZcPKVnIM4RK wDfARLiIgN2AdL7PgP3AT f6WTYMBVTsAJr9LswcCTp 6JMz3VRgbnowqAAi8NLJf QLuctXKvWM9fvZesJfdla Cxym5JxrYSjWRQvBZukhA QgNTEwMDIgXFxkYiBPVlI zUoOkEXl4INxgFBPgYEn9 IFclW8DYNXDrFGF2JmBxP FTjNlB0DPo4RIMRLl2qOb I9KoPbCXI2WxG6KMGrZZL cXHQgMiBcXHNzIDMgXFxm eQEaQE2hxNimASYoWO6DU HBsYWluXGYxXGZzMjAgQS 3sE86vAKsoHFXxkDozBdX tXTErmMWsjRZdfDGcr2C3 uRUlCMl3aCNrf8T7iWinY GluZmlsdHJhdGVzOlxwYX IgDQpccGFyZCANClxwbGF pblxmMVxmczIwXHBsYWlu TGv0bvQnVTLlJeMvZRJgW 14tt2QMc6OuAC5ERLs9ah MujsctoI5qOKQpetQkSPf cZjFcZnMyMCBSZWNlaXZl YXLeoiJmw4QbLLwfqvLpL BJbtGWnTWaqsYpvaNV5fI PyeSSvEQ3cVYQkZMUtBGF 2fILcn1I3YBNeqnk6ORBl vGfoujBogS1qpA0yxBNzF yBpbmZpbHRyYXRlcywgbG VmdCBrbmVlIiBpcyBhIDM eC31gBOrihoNnQUTrTY9g RSL5a4j9FTGevo1bebO6P OFaHbMuV9AwuVatOIqzpd 31duG7rYTphYHoJOPZrAK sz6UjA9gkFA9pbJFnehLx cxCgMW99ZOZnrzJjmKXgz NHidRN1VRTqmA1kHnzqX1 sgQTEuXHBhciANClxwYXI bFUuue1PnZYztjFvlUCKw TzDdVCcutyn6RG6LMTJcN FxlcGljWHNhMCANClxlcG heJiOrsLOaVuJ6NIXjvVE hUZT9WD9qwEsoPRUxA8Bn R9PygxF7ARCthqJNUmpwZ togkqHbIJ2HtO== [employer] Work Phone: Pathology report final diagnosis Narrative d3rlbELfCHCxxJPxYTUwJ GbxfhKuXHUenDSsQ3Dqvl arCKqqSF8dWR9nqEanePN uoBDrYUKuJjRvw1nzv833 cKMjg5wmXPBThayxiNd9r OkbD11dd7H5BsxmF3ilYU QwXGdyZWVuMFxibHVlMDt 9XHBhcGVydzEyMjQwXHBh kKLdvFJ1NPFbQG8pcbcmI NooMDjnCUWprjR0MMOkrK EpB2ZbPFDrIT5ntzfnYLG 6HMruBREuKCG4WbWtFLBs s7Tkmuc3JjChxVh2a1xwQ UEmNBWifDoew2sgNUQ0GE DcuNBcT4umwV9dYKIkYT6 goffka1ofNSuzUIfgWYEp wKP4fkE2VCExlPTlL2Elj D1oMSIrKLWnmdJgsSrjIs K0RBxgcSRbkckmCgWsY91 rcJF2aPBqlJHpQVjaGwOa H7wlBWSuetvtsOSxHSOiF PQGfTzcBE8iarAlDUZeKc ejSQrzXqazzT5dbKfujz9 ccGFyICAgLSBOZWdhdGl2 OBNpg8Ncf2bfkpiqmSTkx aOhuVJutVAmp4B7aALeUG a5qNOqy1E6zVmoHZioZoh pkL3ndXpcel2xdQCurU== [employer] Work Phone: [employer] Phone: Bacteria Spec Anaerobe Culto n 04-20-2022 Bacteria identified Anaer cx Nom (Unsp spec) Culture, Anaerobic Status = F No anaerobes grown after 4 days. Normal [facility] Comment on above: Performed By: #### 3 4556-1 #### [facility] [address] [place] [address] Performed By: #### 5 75-1 #### [facility] [address] [place] [address] Bacteria identified Anaer cx Nom (Unsp spec) Culture, Anaerobic Status = F No anaerobes grown after 4 days. Normal [facility] Comment on above: Performed By: #### 3 4556-1 #### [facility] [address] [place] [address] Bacteria Spec BFld Culton Bacteria identified Sterile [...] to a previously preliminary verified report. Normal [facility] Comment on above: Performed By: #### 6 36-1 #### [facility] [address] [place] [address] Bacteria Tiss Culton 023 Bacteria identified Cx [...] to a previously preliminary verified report. Normal [facility] Comment on above: Performed By: #### 3 4556-1 #### [facility] [address] [place] [address] Performed By: #### 5 75-1 #### [facility] [address] [place] [address] Cell count panel (Body fld)o n 04-20-2022 Fluid Eosinophils 4.0 % Normal [facility] Comment on above: Performed By: #### 1 988-5 #### [facility] [address] [place] [address] Fluid Lining Cells 1.0 % Normal [facility] Comment on above: Performed By: #### 1 988-5 #### [facility] [address] [place] [address] Fluid Lymphocytes 46.0 % Normal [facility] Comment on above: Performed By: #### 1 988-5 #### [facility] [address] [place] [address] Fluid Monocytes/Macrophages 24.0 % Normal [facility] Comment on above: Performed By: #### 1 988-5 #### [facility] [address] [place] [address] Fluid Neutrophils 25.0 % Normal [facility] Comment on above: Performed By: #### 1 988-5 #### [facility] [address] [place] [address] Clarity (Body fld) Hazy [facility] Color (Body fld) Alexander [employer] RBC Auto (Body fld) [#/Vol] 28619 /mm3 [facility] Comment on above: The reference range and other method performance specifications have not been established for this fluid specimen. The test result should be integrated into the clinical context for interpretation. Specimen source Nom (Body fld) Synovial [employer] WBC (Body fld) [#/Vol] 111 /mm3 [facility] Comment on above: The reference range and other method performance specifications have not been established for this fluid specimen. The test result should be integrated into the clinical context for interpretation. [facility] Differential panel (Body fld )Ordered By: Valarie Delacruz on 04-20-2022 Eosinophils/100 WBC Manual cnt (Body fld) 4.0 % [facility] Fluid Lining Cells 1.0 % [facility] Lymphocytes/100 WBC Manual cnt (Body fld) 46.0 % [facility] Monocytes+Macrophages /100 WBC (Body fld) 24.0 % [facility] Neutrophils/100 WBC (Body fld) 25.0 % [facility] Fungus Skin Culton 3 Fungus identified Cx Nom (Skin) Culture, Fungus Status = F No growth at 4 weeks Normal [facility] Comment on above: Performed By: #### 5 75-1 #### [facility] [address] [place] [address] Performed By: #### 3 4556-1 #### [facility] [address] [place] [address] Fungus identified Cx Nom (Skin) Culture, Fungus Status = F No growth at 4 weeks Normal [facility] Comment on above: Performed By: #### 5 75-1 #### [facility] [address] [place] [address] Glucose Auto test strip (Bld ) [Mass/Vol]on 04-20-2022 Glucose [Mass/Vol] 135 mg/dL High 70-99 [facility] Comment on above: Performed By: #### 1 988-5 #### [facility] [address] [place] [address] Glucose [Mass/Vol] 135 mg/dL High 70 - 99 mg/dL [facility] Interpretation and review of laboratory results Abnormal [facility] Mycobacterium Spec Culton Mycobacterium sp identified Org specific cx Nom (Unsp spec) Culture AFB Status = F No growth at 8 weeks AFB Stain Status = F No acid fast bacilli seen Normal [facility] Comment on above: Performed By: #### 5 43-9 #### [facility] [address] [place] [address] Performed By: #### 3 4556-1 #### [facility] [address] [place] [address] Performed By: #### 5 75-1 #### [facility] [address] [place] [address] Mycobacterium sp identified Org specific cx Nom (Unsp spec) Culture AFB Status = F No growth at 8 weeks AFB Stain Status = F No acid fast bacilli seen Normal [facility] Comment on above: Performed By: #### 5 75-1 #### [facility] [address] [place] [address] No Panel InformationOrdered By: Hilary Albarran on 04-20-2022 [employer] PT Coag (PPP) [Time]on 04-20 aPTT Coag (Bld) [Time] 22.0 s Low 23.3-35.3 [facility] Comment on above: Performed By: #### 1 988-5 #### [facility] [address] [facility] [place] [address] PT Coag (PPP) [Time]Ordered By: Hilary Albarran on 04-20-2022 INR Coag (PPP) [Relative time] 1.0 {INR} NINF - 5.0 [employer] Comment on above: The recommended ther apeutic INR range for most cardiac indications is 2.0-3.0 For high intensity therapy (i.e. mechanical heart valves), the recommended range is 2.5-3.5 Interpretation and review of laboratory results Normal [employer] PT Coag (Bld) [Time] 13.4 s [facility] Pathology studyon 04-20-2022 Pathology study Soft tissue, left [place]: - Mild nonspecific inflammation. - Negative for significant perivascular lymphocytic inflammation. A. Knee, Left, Rule out perivascular lymphocytic infiltrates: Received in formalin labeled with patient name and rule out perivascular lymphocytic infiltrates, left knee is a 3 cm aggregate of dusky rogers-trujillo fibrocartilaginous tissue. The specimen is representatively submitted in block A1. (zhw) The technical component was performed at [facility], [address] [place] [address]. Microscopic examination was performed. Normal [facility] Comment on above: Performed By: #### 1 1526-1 #### [facility] ([facility] [address] [place] [address] [facility] ([facility] [address] [place] [address] XR KNEE 1-2 VIEWS LEFTon XR KNEE [...] Self Edit Transcribed Date: 04/20/2022 16:06 Normal [facility] XR Knee 1-2 Views Lefton FINDINGS/IMPRESSION: Status [...] By: Self Edit Transcribed Date: 04/20/2022 16:06 [employer] Radiology Study observation (narrative) [employer] XR Knee 1-2 Views LeftOrdere d By: Heriberto Saldana on 04-20-2022 [employer] Work Phone: aPTT Coag (Bld) [Time]on aPTT Coag (PPP) [Time] 22.0 s Low [employer] Interpretation and review of laboratory results Abnormal [employer] Covid-19 PCR (CVDTBH)on 04-02 SARS-CoV-2 (COVID-19) RNA REBECCA+probe Ql (Unsp spec) Not detected Normal NOT DETECTED [facility] Comment on above: Result Comment: When diagnostic [...] for this test is supported by the [place] of Health and Human Service's declaration that [...] be used). Performed By: #### C #### [facility] [address] [place], [place] [address] Dr. Jeffrey Thomas Bacteria Spec Anaerobe Culto n 04-05-2022 Bacteria identified Anaer cx Nom (Unsp spec) Culture, Anaerobic Status = F No anaerobes grown after 4 days. Normal [facility] Comment on above: Performed By: #### 5 75-1 #### [facility] [address] [place] [address] Bacteria Spec BFld Culton Bacteria identified Sterile [...] to a previously preliminary verified report. Normal [facility] Comment on above: Performed By: #### 5 75-1 #### [facility] [address] [place] [address] Blood type and Indirect anti body screen panel (Bld)on 04-05-2022 ABO group Nom (Bld) A Normal [facility] Comment on above: Performed By: #### 3 4532-2 #### [facility] [address] [place] [address] Rh Type Positive Normal [facility] Comment on above: Performed By: #### 3 4532-2 #### [facility] [address] [place] [address] CRP [Mass/Vol]on 04-05-2022 Anion gap [Moles/Vol] 9 mmol/L Normal 6-18 [facility] Comment on above: Performed By: #### 1 988-5 #### [facility] [address] [place] [address] Calcium [Mass/Vol] 9.4 mg/dL Normal 8.9-10.3 [facility] Comment on above: Performed By: #### 1 988-5 #### [facility] [address] [place] [address] Chloride [Moles/Vol] 105 mmol/L Normal 98-107 [facility] Comment on above: Performed By: #### 1 988-5 #### [facility] [address] [facility] [place] [address] CO2 [Moles/Vol] 24 mmol/L Normal 22-32 [facility] Comment on above: Performed By: #### 1 988-5 #### [facility] [address] [facility] [place] [address] Creatinine [Mass/Vol] 1.07 mg/dL Normal 0.60-1.30 [facility] Comment on above: Performed By: #### 1 988-5 #### [facility] [address] [place] [address] GFR/1.73 sq M.predicted among non-blacks MDRD (S/P/Bld) [Vol rate/Area] 58 mL/min/{1.73_m2} Low >=60 [facility] Comment on above: Result Comment: Effe ctive January 08, 2022, calculation based on the?Chronic Kidney Disease Epidemiology Collaboration (CKD-EPI) equation refit?without adjustment for race. Performed By: #### 1 988-5 #### [facility] [address] [facility] [place] [place] [address] Glucose [Mass/Vol] 97 mg/dL Normal 70-99 [facility] Comment on above: Performed By: #### 1 988-5 #### [facility] [address] [facility] [place] [address] Potassium [Moles/Vol] 4.9 mmol/L Normal 3.6-5.1 [facility] Comment on above: Performed By: #### 1 988-5 #### [facility] [address] [place] [address] Sodium [Moles/Vol] 138 mmol/L Normal 136-145 [facility] Comment on above: Performed By: #### 1 988-5 #### [facility] [address] [place] [address] Urea nitrogen [Mass/Vol] 22 mg/dL High 8-20 [facility] Comment on above: Performed By: #### 1 988-5 #### [facility] [address] [place] [address] Urea nitrogen/Creatinine [Mass ratio] 20.6 mg/mg High 12.0-20.0 [facility] Comment on above: Performed By: #### 1 988-5 #### [facility] [address] [place] [address] Cell count panel (Body fld)o n 04-05-2022 Fluid Eosinophils 3.0 % Normal [facility] Comment on above: Result Comment: Boy ected result: Previously reported as 6.0 % on 04/05/2022 at 1416 EST. Performed By: #### 3 4556-1 #### [facility] [address] [place] [address] Fluid Lymphocytes 34.0 % Normal [facility] Comment on above: Result Comment: Boy ected result: Previously reported as 43.0 % on 04/05/2022 at 1416 EST. Performed By: #### 3 4556-1 #### [facility] [address] [place] [address] Fluid Monocytes/Macrophages 23.0 % Normal [facility] Comment on above: Result Comment: Boy ected result: Previously reported as 9.0 % on 04/05/2022 at 1416 EST. Performed By: #### 3 4556-1 #### [facility] [address] [place] [address]059 Fluid Neutrophils 40.0 % Normal [facility] Comment on above: Result Comment: Boy ected result: Previously reported as 39.0 % on 04/05/2022 at 1416 EST. Performed By: #### 3 4556-1 #### [facility] [address] [place] [address] 10200 Fluid Other Cells Normal [facility] Comment on above: Result Comment: Lini ng cells Corrected result: Previously reported as 3.0 % on 04/05/2022 at 1416 EST. Performed By: #### 3 4556-1 #### [facility] [address] [place] [id number] Fungus Skin Culton Fungus identified Cx Nom (Skin) Culture, Fungus Status = F No growth at 4 weeks Normal [facility] Comment on above: Performed By: #### 3 4556-1 #### [facility] [address] [place] [address] 13476 Hemogram and platelets WO di fferential panel (Bld)on 04-05-2022 Sed Rate 41 mm/hr High 0-20 [facility] Comment on above: Performed By: #### 5 75-1 #### [facility] [address] [place] [address] Mycobacterium Spec Culton Mycobacterium sp identified Org specific cx Nom (Unsp spec) Culture AFB Status = F No growth at 8 weeks AFB Stain Status = F No acid fast bacilli seen Normal [facility] Comment on above: Performed By: #### 1 988-5 #### [facility] [address] [place] [address]5923 Basic metabolic 2000 panelon 01-05-2022 Anion gap [Moles/Vol] 12 mmol/L [facility] [address] [facility] Calcium [Mass/Vol] 9.1 mg/dL 8.9 - 10. 3 mg/dL [facility] Chloride [Moles/Vol] 103 mmol/L 98 - 10 7 mmol/L [facility] CO2 [Moles/Vol] 19 mmol/L Low 22 - 32 mmol/L [facility] Creatinine [Mass/Vol] 1.28 mg/dL 0.60 - 1.30 mg/dL [facility] GFR/1.73 sq M.predicted MDRD (S/P/Bld) [Vol rate/Area] 44 mL/min/{1.73_m2} Low >=60 mL/min/1.73m 2 [facility] Glucose [Mass/Vol] 99 mg/dL 70 - 99 mg/dL [facility] Interpretation and review of laboratory results Abnormal [facility] Potassium [Moles/Vol] 5.1 mmol/L 3.6 - 5.1 mmol/L [facility] Sodium [Moles/Vol] 134 mmol/L Low 136 - 145 mmol/L [facility] Urea nitrogen [Mass/Vol] 34 mg/dL High 8 - 20 mg/dL [facility] Urea nitrogen/Creatinine [Mass ratio] 26.6 mg/mg High [facility] and platelets WO di fferential panel (Bld)on 01-05-2022 Basophils (Bld) [#/Vol] 0.10 10*3/uL [facility] Basophils/100 WBC (Bld) 0.8 % 0.0 - 2.0 % [facility] Eosinophils (Bld) [#/Vol] 0.29 10*3/uL [facility] Eosinophils/100 WBC (Bld) 2.3 % 0.0 - 7.0 % [facility] Erythrocyte distribution width (RBC) [Ratio] 15.8 % High 11.0 - 14.8 % [facility] Hematocrit (Bld) [Volume fraction] 35.6 % 34.3 - 47.9 % [facility] Hemoglobin (Bld) [Mass/Vol] 10.7 g/dL Low 12.0 - 16.0 g/dL [facility] Immature granulocytes (Bld) [#/Vol] 0.06 10*3/uL [facility] Immature granulocytes/100 WBC (Bld) 0.5 % 0.0 [...] mean volume (Bld) [Entitic vol] 11.8 fL [facility] Platelets (Bld) [#/Vol] 194 10*3/uL [facility] RBC (Bld) [#/Vol] 3.39 10*6/uL Low [facility] WBC (Bld) [#/Vol] 12.7 10*3/uL High [facility] Manual Differential panel (B ld)on 01-05-2022 [...] 8.0 % 0.0 - 12.0 % [facility] Segmented neutrophils (Bld) [#/Vol] 9.02 10*3/uL High [facility] Segmented neutrophils/100 WBC (Bld) 71.0 % 38.1 - 75.5 % [facility] PT Coag (PPP) [Time]on 01-05 INR Coag (PPP) [Relative time] 1.0 {INR} <=5.0 [facility] Comment on above: The recommended ther apeutic INR range for most cardiac indications is 2.0-3.0 For high intensity therapy (i.e. mechanical heart valves), the recommended range is 2.5-3.5 Interpretation and review of laboratory results Normal [facility] PT Coag (Bld) [Time] 13.0 [facility] Basic metabolic 2000 panelon 01-04-2022 Anion gap [Moles/Vol] 9 mmol/L [facility] Calcium [Mass/Vol] 8.9 mg/dL 8.9 - 10. 3 mg/dL [facility] Chloride [Moles/Vol] 103 mmol/L 98 - 10 7 mmol/L [facility] CO2 [Moles/Vol] 21 mmol/L Low 22 - 32 mmol/L [facility] Creatinine [Mass/Vol] 1.00 mg/dL 0.60 - 1.30 mg/dL [facility] GFR/1.73 sq M.predicted MDRD (S/P/Bld) [Vol rate/Area] 59 mL/min/{1.73_m2} Low >=60 mL/min/1.73m 2 [facility] Glucose [Mass/Vol] 129 mg/dL High 70 - 99 mg/dL [facility] Interpretation and review of laboratory results Abnormal [facility] Potassium [Moles/Vol] 5.0 mmol/L 3.6 - 5.1 mmol/L [facility] Sodium [Moles/Vol] 133 mmol/L Low 136 - 145 mmol/L [facility] Urea nitrogen [Mass/Vol] 26 mg/dL High 8 - 20 mg/dL [facility] Urea nitrogen/Creatinine [Mass ratio] 26.0 mg/mg High [facility] Hemogram and platelets WO di fferential panel (Bld)on 01-04-2022 Basophils (Bld) [#/Vol] 0.03 10*3/uL [facility] Basophils/100 WBC (Bld) 0.2 % 0.0 - [...] results Abnormal [facility] Lymphocytes (Bld) [#/Vol] 2.77 10*3/uL [facility] Lymphocytes/100 WBC (Bld) 19.0 % 17.9 - 49.6 % [facility] Monocytes (Bld) [#/Vol] 1.31 10*3/uL High [facility] Monocytes/100 WBC (Bld) 9.0 % 0.0 - 12.0 % [facility] Segmented neutrophils (Bld) [#/Vol] 10.51 10*3/uL High [facility] Segmented neutrophils/100 WBC (Bld) 72.0 % 38.1 - 75.5 % [facility] PT Coag (PPP) [Time]Ordered By: Hilary Albarran on 01-04-2022 INR Coag (PPP) [Relative time] 0.9 {INR} <=5.0 [facility] Comment on above: The recommended ther apeutic INR range for most cardiac indications is 2.0-3.0 For high intensity therapy (i.e. mechanical heart valves), the recommended range is 2.5-3.5 Interpretation and review of laboratory results Normal [facility] PT Coag (Bld) [Time] 12.6 s [facility] Glucose Auto test strip (Bld ) [Mass/Vol]on 01-03-2022 Glucose [Mass/Vol] 144 mg/dL High 70 - 99 mg/dL [facility] Interpretation and review of laboratory results Abnormal [facility] Covid-19 PCR (CVDTB)on SARS-CoV-2 (COVID-19) RNA REBECCA+probe Ql (Unsp spec) Not detected Normal NOT DETECTED [facility] Comment on above: Result Comment: When diagnostic [...] for this test is supported by the [place] of [employer] and Human Service's declaration that [...] used). Performed By: #### C MP #### [facility] [address] [place] [address] Dr. Jeffrey Thomas CBC AUTO DIFFon 12-14-2021 BASO # 0.1 103/ul Normal 0.0-0.[address] [facility] Comment on above: Performed By: #### T 4LC #### [facility] [address] [place] [address] Dr. Jeffrey Thomas Basophils/100 WBC (Bld) 1.2 % Normal 0.2-2.[address] [facility] Comment on above: Performed By: #### T 4LC #### [facility] [address] [place] [address] Dr. Jeffrey Thomas EO # 0.2 103/ul Normal 0.0-0.[address] [facility] Comment on above: Performed By: #### T 4LC #### [facility] [address] [place] [address] Dr. Jeffrey Thomas Eosinophils/100 WBC (Bld) 3.2 % Normal 0.9-7.[address] [facility] Comment on above: Performed By: #### T 4LC #### [facility] [address] [place] [address] Dr. Jeffrey Thomas Erythrocyte distribution width (RBC) [Ratio] 15.9 % Critically high 11.0-15.[address] [facility] Comment on above: Performed By: #### T 4LC #### [facility] [address] [place] [address] Dr. Jeffrey Thomas Hematocrit (Bld) [Volume fraction] 35.1 % Critically low 36.0-48.0 [facility] Comment on above: Performed By: #### T 4LC #### [facility] [address] [place] [address] Dr. Jeffrey Thomas Hemoglobin (Bld) [Mass/Vol] 10.8 g/dL Critically low 12.0-16.0 [facility] Comment on above: Performed By: #### T 4LC #### [facility] [address] [place] [address] Dr. Jeffrey Thomas IG # 0.03 10e3/ul Normal 0.00-0.[address] [facility] Comment on above: Performed By: #### T 4LC #### [facility] [address] [place] [address] Dr. Jeffrey Thomas IG % 0.4 % Normal 0.0-0.[address] [facility] Comment on above: Performed By: #### T 4LC #### [facility] [address] [place] [address] Dr. Jeffrey Thomas LYMPH # 2.1 103/ul Normal 1.2-3.[address] [facility] Comment on above: Performed By: #### T 4LC #### [facility] [address] [place] [address] Dr. Jeffrey Thomas Lymphocytes/100 WBC (Bld) 30.8 % Normal 20.5-60.[address] [facility] Comment on above: Performed By: #### T 4LC #### [facility] [address] [place] [address] Dr. Jeffrey Thomas MANUAL DIFF REQ NO Normal [facility] Comment on above: Performed By: #### T 4LC #### [facility] [address] [place] [address] Dr. Jeffrey Thomas MCH (RBC) [Entitic mass] 30.3 pg Normal 26.7-34.[address] [facility] Comment on above: Performed By: #### T 4LC #### [facility] [address] [place] [address] Dr. Jeffrey Thomas MCHC (RBC) [Mass/Vol] 30.8 g/dL Normal 29.9-35.[address] [facility] Comment on above: Performed By: #### T 4LC #### [facility] [address] [place] [address] Dr. Jeffrey Thomas MCV (RBC) [Entitic vol] 98.6 fL Normal 81.0-99.[address] [facility] Comment on above: Performed By: #### 4LC #### [facility] [address] [address] [address] Jeffrey Thomas MONO # 0.5 103/ul Normal 0.3-0.[address] [facility] Comment on above: Performed By: #### 4LC #### [facility] [address] [address] [address] Jeffrey Thomas Monocytes/100 WBC (Bld) 7.5 % Normal 1.7-12.[address] [facility] Comment on above: Performed By: #### 4LC #### [facility] [address] [address] [address] Jeffrey Thomas NEUT # 3.9 103/ul Normal 1.4-6.[address] [facility] Comment on above: Performed By: #### 4LC #### [facility] [address] [place] [address] Dr. Jeffrey Thomas Neutrophils/100 WBC (Bld) 56.9 % Normal 43.0-75.[address] [facility] Comment on above: Performed By: #### 4LC #### [facility] [address] [place] [address] Dr. Jeffrey Thomas Platelet mean volume (Bld) [Entitic vol] 12.0 fL Normal 9.5-13.[address] [facility] Comment on above: Performed By: #### 4LC #### [facility] [address] [address] [address] Jeffrey Thomas PLT 209 103/ul Normal 150-450 [facility] Comment on above: Performed By: #### 4LC #### [facility] [address] [address] [address] Jeffrey Thomas RBC 3.56 106/ul Critically low 4.20-5.40 [facility] Comment on above: Performed By: #### T 4LC #### [facility] [address] [address] [address] Jeffrey Thomas WBC 6.8 103/ul Normal 4.0-11.0 [facility] Comment on above: Performed By: #### 4LC #### [facility] [address] [address] [address] Jeffrey Thomas PROF 14(COMP METB)on 022 Albumin [Mass/Vol] 2.5 g/dL Critically low 3.4-5.[address] [facility] Comment on above: Performed By: #### L ACT #### [facility] [address] [address] [address] Jeffrey Thomas Albumin/Globulin [Mass ratio] 1.0 {ratio} Normal [facility] Comment on above: Performed By: #### L ACT #### [facility] [address] [place] [address] Dr. Jeffrey Thomas ALP [Catalytic activity/Vol] 94 U/L Normal 46-[address] [facility] Comment on above: Performed By: #### L ACT #### [facility] [address] [place] [address] Dr. Jeffrey Thomas ALT [Catalytic activity/Vol] 9 U/L Critically low 14-[address] [facility] Comment on above: Performed By: #### L ACT #### [facility] [address] [place] [address] Dr. Jeffrey Thomas Anion gap [Moles/Vol] 11.7 mmol/L Normal [facility] Comment on above: Performed By: #### L ACT #### [facility] [address] [place] [address] Dr. Jeffrey Thomas AST [Catalytic activity/Vol] 6 U/L Critically low 15-[address] [facility] Comment on above: Performed By: #### L ACT #### [facility] [address] [place] [address] Dr. Jeffrey Thomas Bilirubin [Mass/Vol] 0.1 mg/dL Critically low 0.2-1.[address] [facility] Comment on above: Performed By: #### L ACT #### [facility] [address] [place] [address] Dr. Jeffrey Thomas Calcium [Mass/Vol] 8.2 mg/dL Critically low 8.5-10.[address] [facility] Comment on above: Performed By: #### L ACT #### [facility] [address] [address] [address] Jeffrey Thomas Chloride [Moles/Vol] 111 mmol/L Critically high 98-[address] [facility] Comment on above: Performed By: #### L ACT #### [facility] [address] [address] [address] Jeffrey Thomas CO2 [Moles/Vol] 22.5 mmol/L Normal 21.0-32.[address] [facility] Comment on above: Performed By: #### L ACT #### [facility] [address] [address] [address] Jeffrey Thomas Creatinine [Mass/Vol] 0.87 mg/dL Normal 0.55-1.[address] [facility] Comment on above: Performed By: #### L ACT #### [facility] [address] [place] [address] Dr. Jeffrey Thomas EGFR-AF ECUADOREAN >60 Normal >=60 [facility] Comment on above: Performed By: #### L ACT #### [facility] [address] [place] [address] Dr. Jeffrey Thomas EGFR-NON AF ECUADOREAN >60 Normal >=[address] [facility] Comment on above: Performed By: #### L ACT #### [facility] [address] [place] [address] Dr. Jeffrey Thomas Globulin (S) [Mass/Vol] 2.6 g/dL Normal [facility] Comment on above: Performed By: #### L ACT #### [facility] [address] [address] [address] Jeffrey Thomas Glucose [Mass/Vol] 111 mg/dL Critically high 74-106 [facility] Comment on above: Performed By: #### L ACT #### [facility] [address] [place] [address] Dr. Jeffrey Thomas Potassium [Moles/Vol] 4.2 mmol/L Normal 3.5-5.[address] [facility] Comment on above: Performed By: #### L ACT #### [facility] [address] [place] [address] Dr. Jeffrey Thomas Protein [Mass/Vol] 5.1 g/dL Critically low 6.4-8.2 Th e [facility] Comment on above: Performed By: #### L ACT #### [facility] [address] [place] [address] Dr. Jeffrey Thomas Sodium [Moles/Vol] 141 mmol/L Normal 136-145 [facility] Comment on above: Performed By: #### L ACT #### [facility] [address] [place] [address] Dr. Jeffrey Thomas Urea nitrogen [Mass/Vol] 31.0 mg/dL Critically high 7.0-18.[address] [facility] Comment on above: Performed By: #### L ACT #### [facility] [address] [place] [address] Dr. Jeffrey Thomas Urea nitrogen/Creatinine [Mass ratio] 35.6 mg/mg Normal [facility] Comment on above: Performed By: #### L ACT #### [facility] [address] [place] [address] Dr. Jeffrey Thomas CBC AUTO DIFFon 12-13-2021 BASO # 0.1 103/ul Normal 0.0-0.[address] [facility] Comment on above: Performed By: #### L ACT #### [facility] [address] [place] [address] Dr. Jeffrey Thomas Basophils/100 WBC (Bld) 1.3 % Normal 0.2-2.[address] [facility] Comment on above: Performed By: #### L ACT #### [facility] [address] [place] [address] Dr. Jeffrey Thomas EO # 0.3 103/ul Normal 0.0-0.[address] [facility] Comment on above: Performed By: #### L ACT #### [facility] [address] [place] [address] Dr. Jeffrey Thomas Eosinophils/100 WBC (Bld) 3.8 % Normal 0.9-7.[address] [facility] Comment on above: Performed By: #### L ACT #### [facility] [address] [place] [address] Dr. Jeffrey Thomas Erythrocyte distribution width (RBC) [Ratio] 15.7 % Critically high 11.0-15.[address] [facility] Comment on above: Performed By: #### L ACT #### [facility] [address] [place] [address] Dr. Jeffrey Thomas Hematocrit (Bld) [Volume fraction] 35.7 % Critically low 36.0-48.[address] [facility] Comment on above: Performed By: #### L ACT #### [facility] [address] [place] [address] Dr. Jeffrey Thomas Hemoglobin (Bld) [Mass/Vol] 11.5 g/dL Critically low 12.0-16.[address] [facility] Comment on above: Performed By: #### L ACT #### [facility] [address] [place] [address] Dr. Jeffrey Thomas IG # 0.04 10e3/ul Critically high 0.00-0.03 [facility] Comment on above: Performed By: #### L ACT #### [facility] [address] [place] [address] Dr. Jeffrey Thomas IG % 0.6 % Critically high 0.0-0.5 [facility] Comment on above: Performed By: #### L ACT #### [facility] [address] [place] [address] Dr. Jeffrey Thomas LYMPH # 2.0 103/ul Normal 1.2-3.[address] [facility] Comment on above: Performed By: #### L ACT #### [facility] [address] [place] [address] Dr. Jeffrey Thomas Lymphocytes/100 WBC (Bld) 28.8 % Normal 20.5-60.[address] [facility] Comment on above: Performed By: #### L ACT #### [facility] [address] [place] [address] Dr. Jeffrey Thomas MANUAL DIFF REQ NO Normal [facility] Comment on above: Performed By: #### L ACT #### [facility] [address] [place] [address] Dr. Jeffrey Thomas MCH (RBC) [Entitic mass] 31.6 pg Normal 26.7-34.[address] [facility] Comment on above: Performed By: #### L ACT #### [facility] [address] [place] [address] Dr. Jeffrey Thomas MCHC (RBC) [Mass/Vol] 32.2 g/dL Normal 29.9-35.[address] [facility] Comment on above: Performed By: #### L ACT #### [facility] [address] [place] [address] Dr. Jeffrey Thomas MCV (RBC) [Entitic vol] 98.1 fL Normal 81.0-99.0 [facility] Comment on above: Performed By: #### L ACT #### [facility] [address] [place] [address] Dr. Jeffrey Thomas MONO # 0.6 103/ul Normal 0.3-0.[address] [facility] Comment on above: Performed By: #### L ACT #### [facility] [address] [place] [address] Dr. Jeffrey Thomas Monocytes/100 WBC (Bld) 8.5 % Normal 1.7-12.[address] [facility] Comment on above: Performed By: #### L ACT #### [facility] [address] [place] [address] Dr. Jeffrye Thomas NEUT # 3.9 103/ul Normal 1.4-6.5 [facility] Comment on above: Performed By: #### L ACT #### [facility] [address] [place] [address] Dr. Jeffrey Thomas Neutrophils/100 WBC (Bld) 57.0 % Normal 43.0-75.0 [facility] Comment on above: Performed By: #### L ACT #### [facility] [address] [place] [address] Dr. Jeffrey Thomas Platelet mean volume (Bld) [Entitic vol] 11.5 fL Normal 9.5-13.[address] [facility] Comment on above: Performed By: #### L ACT #### [facility] [address] [place] [address] Dr. Jeffrey Thomas PLT 199 103/ul Normal 150-[address] [facility] Comment on above: Performed By: #### L ACT #### [facility] [address] [address] [address] Jeffrey Thomas RBC 3.64 106/ul Critically low 4.20-5.40 [facility] Comment on above: Performed By: #### L ACT #### [facility] [address] [address] [address] Jeffrey Thomas WBC 6.9 103/ul Normal 4.0-11.[address] [facility] Comment on above: Performed By: #### L ACT #### [facility] [facility] [address] [address] [address] Jeffrey Thomas POINT OF CARE GLUCOSEon 12-01 Glucose [Mass/Vol] 85 mg/dL Normal 74-106 [facility] Comment on above: Performed By: #### C MP #### [facility] [address] [place] [address] Dr. Jeffrey Thomas PROF 14(COMP METB)on 022 Albumin [Mass/Vol] 2.7 g/dL Critically low 3.4-5.[address] [facility] Comment on above: Performed By: #### A MM #### [facility] [address] [place] [address] Dr. Jeffrey Thomas Albumin/Globulin [Mass ratio] 1.0 {ratio} Normal [facility] Comment on above: Performed By: #### A MM #### [facility] [address] [place] [address] Dr. Jeffrey Thomas ALP [Catalytic activity/Vol] 95 U/L Normal 46-[address] [facility] Comment on above: Performed By: #### A MM #### [facility] [address] [place] [address] Dr. Jeffrey Thomas ALT [Catalytic activity/Vol] 11 U/L Critically low 14-[address] [facility] Comment on above: Performed By: #### A MM #### [facility] [address] [place] [address] Dr. Jeffrey Thomas Anion gap [Moles/Vol] 10.8 mmol/L Normal [facility] Comment on above: Performed By: #### A MM #### [facility] [address] [address] [address] Jeffrey Thomas AST [Catalytic activity/Vol] 14 U/L Critically low 15-[address] [facility] Comment on above: Performed By: #### A MM #### [facility] [address] [address] [address] Jeffrey Thomas Bilirubin [Mass/Vol] 0.2 mg/dL Normal 0.2-1.[address] [facility] Comment on above: Performed By: #### A MM #### [facility] [address] [address] [address] Jeffrey Thomas Calcium [Mass/Vol] 8.3 mg/dL Critically low 8.5-10.[address] [facility] Comment on above: Performed By: #### A MM #### [facility] [address] [address] [address] Jeffrey Thomas Chloride [Moles/Vol] 113 mmol/L Critically high 98-[address] [facility] Comment on above: Performed By: #### A MM #### [facility] [address] [place] [address] Dr. Jeffrey Thomas CO2 [Moles/Vol] 22.1 mmol/L Normal 21.0-32.[address] [facility] Comment on above: Performed By: #### A MM #### [facility] [address] [address] [address] Jeffrey Thomas Creatinine [Mass/Vol] 0.98 mg/dL Normal 0.55-1.[address] [facility] Comment on above: Performed By: #### A MM #### [facility] [address] [address] [address] Jeffrey Thomas EGFR-AF ECUADOREAN >60 Normal >=[address] [facility] Comment on above: Performed By: #### A MM #### [facility] [address] [place] [address] Dr. Jeffrey Thomas EGFR-NON AF ECUADOREAN 57 mL/min/1.73m2 Critically low >=[address] [facility] Comment on above: Performed By: #### A MM #### [facility] [address] [address] [address] Jeffrey Thomas Globulin (S) [Mass/Vol] 2.6 g/dL Normal [facility] Comment on above: Performed By: #### A MM #### [facility] [address] [address] [address] Jeffrey Thomas Glucose [Mass/Vol] 102 mg/dL Normal 74-106 [facility] Comment on above: Performed By: #### A MM #### [facility] [address] [address] [address] Jeffrey Thomas Potassium [Moles/Vol] 3.9 mmol/L Normal 3.5-5.[address] [facility] Comment on above: Performed By: #### A MM #### [facility] [address] [place] [address] Dr. Jeffrey Thomas Protein [Mass/Vol] 5.3 g/dL Critically low 6.4-8.2 [facility] Comment on above: Performed By: #### A MM #### [facility] [address] [address] [address] Jeffrey Thomas Sodium [Moles/Vol] 142 mmol/L Normal 136-145 [facility] Comment on above: Performed By: #### A MM #### [facility] [address] [place] [address] Dr. Jeffrey Thomas Urea nitrogen [Mass/Vol] 26.0 mg/dL Critically high 7.0-18.[address] [facility] Comment on above: Performed By: #### A MM #### [facility] [address] [address] [address] Jeffrey Thomas Urea nitrogen/Creatinine [Mass ratio] 26.5 mg/mg Normal [facility] Comment on above: Performed By: #### A MM #### [facility] [address] [address] [address] Jeffrey Thomas T3, TOTAL (TRIIODOTHYRONINE) on 12-13-2021 T3, TOTAL 72 ng/dL Normal 71-[address] [facility] Comment on above: Performed By: #### C MP #### [facility] [address] [place] [address] Dr. Jeffrey Thomas T4 LABCORPon 12-13-2021 T4 [Mass/Vol] 5.2 ug/dL Normal 4.5-12.0 [facility] Comment on above: Performed By: #### T 4LC #### [facility] [address] [place] [address] Dr. Jeffrey Thomas AMMONIAon 12-12-2021 Ammonia (P) [Moles/Vol] 10 umol/L Critically low 11-32 [facility] Comment on above: Performed By: #### A MM #### [facility] [address] [place] [address] Dr. Jeffrey Thomas CBC AUTO DIFFon 12-12-2021 BASO # 0.1 103/ul Normal 0.0-0.[address] [facility] Comment on above: Performed By: #### T 4LC #### [facility] [address] [place] [address] Dr. Jeffrey Thomas Basophils/100 WBC (Bld) 1.4 % Normal 0.2-2.[address] [facility] Comment on above: Performed By: #### T 4LC #### [facility] [address] [place] [address] Dr. Jeffrey Thomas EO # 0.2 103/ul Normal 0.0-0.[address] [facility] Comment on above: Performed By: #### T 4LC #### [facility] [address] [place] [address] Dr. Jeffrey Thomas Eosinophils/100 WBC (Bld) 2.6 % Normal 0.9-7.0 [facility] Comment on above: Performed By: #### T 4LC #### [facility] [address] [place] [address] Dr. Jeffrey Thomas Erythrocyte distribution width (RBC) [Ratio] 15.7 % Critically high 11.0-15.[address] [facility] Comment on above: Performed By: #### T 4LC #### [facility] [address] [place] [address] Dr. Jeffrey Thomas Hematocrit (Bld) [Volume fraction] 38.4 % Normal 36.0-48.[address] [facility] Comment on above: Performed By: #### T 4LC #### [facility] [address] [place] [address] Dr. Jeffrey Thomas Hemoglobin (Bld) [Mass/Vol] 12.2 g/dL Normal 12.0-16.0 [facility] Comment on above: Performed By: #### T 4LC #### [facility] [address] [place] [address] Dr. Jeffrey Thomas IG # 0.04 10e3/ul Critically high 0.00-0.03 [facility] Comment on above: Performed By: #### T 4LC #### [facility] [address] [place] [address] Dr. Jeffrey Thomas IG % 0.5 % Normal 0.0-0.[address] [facility] Comment on above: Performed By: #### T 4LC #### [facility] [address] [place] [address] Dr. Jeffrey Thomas LYMPH # 2.2 103/ul Normal 1.2-3.8 [facility] Comment on above: Performed By: #### T 4LC #### [facility] [address] [place] [address] Dr. Jeffrey Thomas Lymphocytes/100 WBC (Bld) 28.0 % Normal 20.5-60.0 [facility] Comment on above: Performed By: #### T 4LC #### [facility] [address] [place] [address] Dr. Jeffrey Thomas MANUAL DIFF REQ NO Normal [facility] Comment on above: Performed By: #### T 4LC #### [facility] [address] [place] [address] Dr. Jeffrey Thomas MCH (RBC) [Entitic mass] 30.9 pg Normal 26.7-34.[address] [facility] Comment on above: Performed By: #### T 4LC #### [facility] [address] [place] [address] Dr. Jeffrey Thomas MCHC (RBC) [Mass/Vol] 31.8 g/dL Normal 29.9-35.2 [facility] Comment on above: Performed By: #### T 4LC #### [facility] [address] [place] [address] Dr. Jeffrey Thomas MCV (RBC) [Entitic vol] 97.2 fL Normal 81.0-99.0 [facility] Comment on above: Performed By: #### T 4LC #### [facility] [address] [place] [address] Dr. Jeffrey Thomas MONO # 0.6 103/ul Normal 0.3-0.8 [facility] Comment on above: Performed By: #### T 4LC #### [facility] [address] [place] [address] Dr. Jeffrey Thomas Monocytes/100 WBC (Bld) 7.9 % Normal 1.7-12.0 [facility] Comment on above: Performed By: #### T 4LC #### [facility] [address] [place] [address] Dr. Jeffrey Thomas NEUT # 4.7 103/ul Normal 1.4-6.5 [facility] Comment on above: Performed By: #### T 4LC #### [facility] [address] [place] [address] Dr. Jeffrey Thomas Neutrophils/100 WBC (Bld) 59.6 % Normal 43.0-75.0 [facility] Comment on above: Performed By: #### T 4LC #### [facility] [address] [place] [address] Dr. Jeffrey Thomas Platelet mean volume (Bld) [Entitic vol] 11.7 fL Normal 9.5-13.5 [facility] Comment on above: Performed By: #### T 4LC #### [facility] [address] [place] [address] Dr. Jeffrey Thomas PLT 256 103/ul Normal 150-450 [facility] Comment on above: Performed By: #### T 4LC #### [facility] [address] [place] [address] Dr. Jeffrey Thomas RBC 3.95 106/ul Critically low 4.20-5.40 [facility] Comment on above: Performed By: #### T 4LC #### [facility] [address] [place] [address] Dr. Jeffrey Thomas WBC 7.9 103/ul Normal 4.0-11.[address] [facility] Comment on above: Performed By: #### T 4LC #### [facility] [address] [place] [address] Dr. Jeffrey Thomas BASO # 0.1 103/ul Normal 0.0-0.[address] [facility] Comment on above: Performed By: #### C MP #### [facility] [address] [place] [address] Dr. Jeffrey Thomas Basophils/100 WBC (Bld) 1.4 % Normal 0.2-2.[address] [facility] Comment on above: Performed By: #### C MP #### [facility] [address] [place] [address] Dr. Jeffrey Thomas EO # 0.2 103/ul Normal 0.0-0.[address] [facility] Comment on above: Performed By: #### C MP #### [facility] [address] [place] [address] Dr. Jeffrey Thomas Eosinophils/100 WBC (Bld) 2.9 % Normal 0.9-7.[address] [facility] Comment on above: Performed By: #### C MP #### [facility] [address] [place] [address] Dr. Jeffrey Thomas Erythrocyte distribution width (RBC) [Ratio] 15.7 % Critically high 11.0-15.[address] [facility] Comment on above: Performed By: #### C MP #### [facility] [address] [place] [address] Dr. Jeffrey Thomas Hematocrit (Bld) [Volume fraction] 40.7 % Normal 36.0-48.[address] [facility] Comment on above: Performed By: #### C MP #### [facility] [address] [place] [address] Dr. Jeffrey Thomas Hemoglobin (Bld) [Mass/Vol] 12.9 g/dL Normal 12.0-16.[address] [facility] Comment on above: Performed By: #### C MP #### [facility] [address] [place] [address] Dr. Jeffrey Thomas IG # 0.02 10e3/ul Normal 0.00-0.[address] [facility] Comment on above: Performed By: #### C MP #### [facility] [address] [place] [address] Dr. Jeffrey Thomas IG % 0.3 % Normal 0.0-0.[address] [facility] Comment on above: Performed By: #### C MP #### [facility] [address] [place] [address] Dr. Jeffrey Thomas LYMPH # 1.7 103/ul Normal 1.2-3.[address] [facility] Comment on above: Performed By: #### C MP #### [facility] [address] [place] [address] Dr. Jeffrey Thomas Lymphocytes/100 WBC (Bld) 28.4 % Normal 20.5-60.[address] [facility] Comment on above: Performed By: #### C MP #### [facility] [address] [place] [address] Dr. Jeffrey Thomas MANUAL DIFF REQ NO Normal [facility] Comment on above: Performed By: #### C MP #### [facility] [address] [place] [address] Dr. Jeffrey Thomas MCH (RBC) [Entitic mass] 30.7 pg Normal 26.7-34.[address] [facility] Comment on above: Performed By: #### C MP #### [facility] [address] [place] [address] Dr. Jeffrey Thomas MCHC (RBC) [Mass/Vol] 31.7 g/dL Normal 29.9-35.2 [facility] Comment on above: Performed By: #### C MP #### [facility] [address] [place] [address] Dr. Jeffrey Thomas MCV (RBC) [Entitic vol] 96.9 fL Normal 81.0-99.[address] [facility] Comment on above: Performed By: #### C MP #### [facility] [address] [place] [address] Dr. Jeffrey Thomas MONO # 0.5 103/ul Normal 0.3-0.[address] [facility] Comment on above: Performed By: #### C MP #### [facility] [address] [place] [address] Dr. Jeffrey Thomas Monocytes/100 WBC (Bld) 8.3 % Normal 1.7-12.[address] [facility] Comment on above: Performed By: #### C MP #### [facility] [address] [place] [address] Dr. Jeffrey Thomas NEUT # 3.5 103/ul Normal 1.4-6.[address] [facility] Comment on above: Performed By: #### C MP #### [facility] [address] [place] [address] Dr. Jeffrey Thomas Neutrophils/100 WBC (Bld) 58.7 % Normal 43.0-75.[address] [facility] Comment on above: Performed By: #### C MP #### [facility] [address] [place] [address] Dr. Jeffrey Thomas Platelet mean volume (Bld) [Entitic vol] 11.5 fL Normal 9.5-13.[address] [facility] Comment on above: Performed By: #### C MP #### [facility] [address] [place] [address] Dr. Jeffrey Thomas PLT 241 103/ul Normal 150-450 [facility] Comment on above: Performed By: #### C MP #### [facility] [address] [place] [address] Dr. Jeffrey Thomas RBC 4.20 106/ul Normal 4.20-5.40 [facility] Comment on above: Performed By: #### C MP #### [facility] [address] [place] [address] Dr. Jeffrey Thomas WBC 5.9 103/ul Normal 4.0-11.0 [facility] Comment on above: Performed By: #### C MP #### [facility] [address] [address] [address] Jeffrey Thomas BASO # 0.1 103/ul Normal 0.0-0.[address] [facility] Comment on above: Performed By: #### A MM #### [facility] [address] [address] [address] Jeffrey Thomas Basophils/100 WBC (Bld) 1.7 % Normal 0.2-2.[address] [facility] Comment on above: Performed By: #### A MM #### [facility] [address] [address] [address] Jeffrey Thomas EO # 0.1 103/ul Normal 0.0-0.[address] [facility] Comment on above: Performed By: #### A MM #### [facility] [address] [place] [address] Dr. Jeffrey Thomas Eosinophils/100 WBC (Bld) 1.7 % Normal 0.9-7.[address] [facility] Comment on above: Performed By: #### A MM #### [facility] [address] [place] [address] Dr. Jeffrey Thomas Erythrocyte distribution width (RBC) [Ratio] 15.6 % Critically high 11.0-15.[address] [facility] Comment on above: Performed By: #### A MM #### [facility] [address] [place] [address] Dr. Jeffrey Thomas Hematocrit (Bld) [Volume fraction] 43.4 % Normal 36.0-48.[address] [facility] Comment on above: Performed By: #### A MM #### [facility] [address] [place] [address] Dr. Jeffrey Thomas Hemoglobin (Bld) [Mass/Vol] 14.2 g/dL Normal 12.0-16.[address] [facility] Comment on above: Performed By: #### A MM #### [facility] [address] [place] [address] Dr. Jeffrey Thomas IG # 0.04 10e3/ul Critically high 0.00-0.03 [facility] Comment on above: Performed By: #### A MM #### [facility] [address] [place] [address] Dr. Jeffrey Thomas IG % 0.6 % Critically high 0.0-0.5 [facility] Comment on above: Performed By: #### A MM #### [facility] [address] [place] [address] Dr. Jeffrey Thomas LYMPH # 2.2 103/ul Normal 1.2-3.8 [facility] Comment on above: Performed By: #### A MM #### [facility] [address] [place] [address] Dr. Jeffrey Thomas Lymphocytes/100 WBC (Bld) 32.7 % Normal 20.5-60.[address] [facility] Comment on above: Performed By: #### A MM #### [facility] [address] [place] [address] Dr. Jeffrey Thomas MANUAL DIFF REQ NO Normal [facility] Comment on above: Performed By: #### A MM #### [facility] [address] [place] [address] Dr. Jeffrey Thomas MCH (RBC) [Entitic mass] 31.3 pg Normal 26.7-34.[address] [facility] Comment on above: Performed By: #### A MM #### [facility] [address] [place] [address] Dr. Jeffrey Thomas MCHC (RBC) [Mass/Vol] 32.7 g/dL Normal 29.9-35.2 [facility] Comment on above: Performed By: #### A MM #### [facility] [address] [place] [address] Dr. Jeffrey Thomas MCV (RBC) [Entitic vol] 95.8 fL Normal 81.0-99.0 [facility] Comment on above: Performed By: #### A MM #### [facility] [address] [place] [address] Dr. Jeffrey Thomas MONO # 0.7 103/ul Normal 0.3-0.8 [facility] Comment on above: Performed By: #### A MM #### [facility] [address] [place] [address] Dr. Jeffrey Thomas Monocytes/100 WBC (Bld) 9.9 % Normal 1.7-12.0 [facility] Comment on above: Performed By: #### A MM #### [facility] [address] [place] [address] Dr. Jeffrey Thomas NEUT # 3.5 103/ul Normal 1.4-6.5 [facility] Comment on above: Performed By: #### A MM #### [facility] [address] [place] [address] Dr. Jeffrey Thomas Neutrophils/100 WBC (Bld) 53.4 % Normal 43.0-75.0 [facility] Comment on above: Performed By: #### A MM #### [facility] [address] [place] [address] Dr. Jeffrey Thomas Platelet mean volume (Bld) [Entitic vol] 12.1 fL Normal 9.5-13.5 [facility] Comment on above: Performed By: #### A MM #### [facility] [address] [place] [address] Dr. Jeffrey Thomas PLT 307 103/ul Normal 150-450 [facility] [facility] Comment on above: Performed By: #### A MM #### [facility] [address] [place] [address] Dr. Jeffrey Thomas RBC 4.53 106/ul Normal 4.20-5.40 [facility] Comment on above: Performed By: #### A MM #### [facility] [address] [place] [address] Dr. Jeffrey Thomas WBC 6.6 103/ul Normal 4.0-11.0 [facility] Comment on above: Performed By: #### A MM #### [facility] [address] [place] [address] Dr. Jeffrey Thomas [facility]01 SARS-CoV-2 (COVID-19) RNA REBECCA+probe Ql (Unsp spec) Not detected Normal NOT DETECTED [facility] Comment on above: Result Comment: When diagnostic [...] for this test is supported by the [employer] Supervisor of Health and Human Service's declaration that [...] used). Performed By: #### C VDTB #### [facility] [address] [place] [address] Dr. Jeffrey Thomas DRUG SCREEN RAPID (URINE)on 12-12-2021 AMP Negative Normal NEGATIVE [facility] Comment on above: Performed By: #### T 4LC #### [facility] [address] [place] [address] Dr. Jeffrey Thomas BAR Negative Normal NEGATIVE [facility] Comment on above: Performed By: #### T 4LC #### [facility] [address] [place] [address] Dr. Jeffrey Thomas BUP Negative Normal NEGATIVE [facility] Comment on above: Performed By: #### T 4LC #### [facility] [address] [place] [address] Dr. Jeffrey Thomas BZO Positive Abnormal NEGATIVE [facility] Comment on above: Performed By: #### T 4LC #### [facility] [address] [place] [address] Dr. Jeffrey hTomas VIKASH Negative Normal NEGATIVE [facility] Comment on above: Performed By: #### T 4LC #### [facility] [address] [place] [address] Dr. Jeffrey Thomas CUT-OFFS SEE BELOW Normal [facility] Comment on above: Result Comment: AMP (Amphetamine): 500ng/mL, BAR (Barbituates): 200 ng/mL, BZO (Benzodiazepines): 150 ng/mL, BUP (Buprenorphine): 10 ng/mL, VIKASH (Cocaine): 150 ng/mL, mAMP (Methamphetamine): 500 ng/mL, MTD (Methadone): 200 ng/mL, OPI (Opiates): 100 ng/mL, OXY (Oxycodone): 100 ng/mL, PCP (Phencyclidine): 25 ng/mL, PPX (Propoxyphene): 300 ng/mL, THC (Cannabinoids): 50 ng/mL, TCA (Trycyclic Antidepressants): 300 ng/mL Performed By: #### T 4LC #### [facility] [address] [place] [address] Dr. Jeffrey Thomas DRUG CUT HEADER DRUG CLASS TEST SYSTEM CUT-OFF CONCENTRATIONS ARE FOLLOWS: Normal [facility] Comment on above: Performed By: #### T 4LC #### [facility] [address] [place] [address] Dr. Jeffrey Thomas mAMP Negative Normal NEGATIVE [facility] Comment on above: Performed By: #### T 4LC #### [facility] [address] [place] [address] Dr. Jeffrey Thomas MTD Negative Normal NEGATIVE [facility] Comment on above: Performed By: #### T 4LC #### [facility] [address] [place] [address] Dr. Jeffrey Thomas OPI Negative Normal NEGATIVE [facility] Comment on above: Performed By: #### T 4LC #### [facility] [address] [place] [address] Dr. Jeffrey Thomas OXY Negative Normal NEGATIVE [facility] Comment on above: Performed By: #### T 4LC #### [facility] [address] [place] [address] Dr. Jeffrey Thomas PCP Negative Normal NEGATIVE [facility] Comment on above: Performed By: #### T 4LC #### [facility] [address] [place] [address] Dr. Jeffrey Thomas PPX Negative Normal NEGATIVE [facility] Comment on above: Performed By: #### T 4LC #### [facility] [address] [place] [address] Dr. Jeffrey Thomas TCA Positive Abnormal NEGATIVE [facility] Comment on above: Performed By: #### T 4LC #### [facility] [address] [place] [address] Dr. Jeffrey Thomas THC Negative Normal NEGATIVE [facility] Comment on above: Performed By: #### T 4LC #### [facility] [address] [place] [address] Dr. Jeffrey Thomas AMP Negative Normal NEGATIVE [facility] Comment on above: Performed By: #### C MP #### [facility] [address] [place] [address] Dr. Jeffrey Thomas BAR Negative Normal NEGATIVE [facility] Comment on above: Performed By: #### C MP #### [facility] [address] [place] [address] Dr. Jeffrey Thomas BUP Negative Normal NEGATIVE [facility] Comment on above: Performed By: #### C MP #### [facility] [address] [place] [address] Dr. Jeffrey Thomas BZO Positive Abnormal NEGATIVE [facility] Comment on above: Performed By: #### C MP #### [facility] [address] [place] [address] Dr. Jeffrey Thomas VIKASH Negative Normal NEGATIVE [facility] Comment on above: Performed By: #### C MP #### [facility] [address] [place] [address] Dr. Jeffrey Thomas CUT-OFFS SEE BELOW Normal [facility] Comment on above: Result Comment: AMP [...] ng/mL Performed By: #### C MP #### [facility] [address] [place] [address] Dr. Jeffrey Thomas DRUG CUT HEADER DRUG CLASS TEST SYSTEM CUT-OFF CONCENTRATIONS ARE FOLLOWS: Normal [facility] Comment on above: Performed By: #### C MP #### [facility] [address] [place] [address] Dr. Jeffrey Thomas mAMP Negative Normal NEGATIVE [facility] Comment on above: Performed By: #### C MP #### [facility] [address] [place] [address] Dr. Jeffrey Thomas MTD Negative Normal NEGATIVE [facility] Comment on above: Performed By: #### C MP #### [facility] [address] [place] [address] Dr. Jeffrey Thomas OPI Negative Normal NEGATIVE [facility] Comment on above: Performed By: #### C MP #### [facility] [address] [place] [address] Dr. Jeffrey Thomas OXY Negative Normal NEGATIVE [facility] Comment on above: Performed By: #### C MP #### [facility] [address] [place] [address] Dr. Jeffrey Thomas PCP Negative Normal NEGATIVE [facility] Comment on above: Performed By: #### C MP #### [facility] [address] [place] [address] Dr. Jeffrey Thomas PPX Negative Normal NEGATIVE [facility] Comment on above: Performed By: #### C MP #### [facility] [address] [place] [address] Dr. Jeffrey Thomas TCA Positive Abnormal NEGATIVE [facility] Comment on above: Performed By: #### C MP #### [facility] [address] [place] [address] Dr. Jeffrey Thomas THC Negative Normal NEGATIVE [facility] Comment on above: Performed By: #### C MP #### [facility] [address] [place] [address] Dr. Jeffrey Thomas ER URINE PROFILEon 2 Bilirubin Ql (U) SMALL Abnormal NEGATIVE [facility] Comment on above: Performed By: #### C MP #### [facility] [address] [place] [address] Dr. Jeffrey Thomas Clarity (U) CLEAR Normal CLEAR [facility] Comment on above: Performed By: #### C MP #### [facility] [address] [place] [address] Dr. Jeffrey Thomas Color (U) YELLOW Normal YELLOW [facility] Comment on above: Performed By: #### C MP #### [facility] [address] [place] [address] Dr. Jeffrey HOFFMAN A micrscopic examination will be performed if indicated. Normal [facility] Comment on above: Performed By: #### C MP #### [facility] [address] [place] [address] Dr. Jeffrey Thomas Glucose Ql (U) Negative Normal NEGATIVE [facility] Comment on above: Performed By: #### C MP #### [facility] [address] [place] [address] Dr. Jeffrey Thomas Hemoglobin Ql (U) Negative Normal NEGATIVE [facility] Comment on above: Performed By: #### C MP #### [facility] [address] [place] [address] Dr. Jeffrey Thomas Ketones Ql (U) Negative Normal NEGATIVE [facility] Comment on above: Performed By: #### C MP #### [facility] [address] [place] [address] Dr. Jeffrey Thomas LEUKOCYTES Negative Normal NEGATIVE [facility] Comment on above: Performed By: #### C MP #### [facility] [address] [place] [address] Dr. Jeffrey Thomas Nitrite Ql (U) Negative Normal NEGATIVE [facility] Comment on above: Performed By: #### C MP #### [facility] [address] [place] [address] Dr. Jeffrey Thomas pH (U) 5.0 [pH] Normal 5-9 [facility] Comment on above: Performed By: #### C MP #### [facility] [address] [place] [address] Dr. Jeffrey Thomas SPEC GRAVITY 1.025 Normal 1.005-<=1.[address] [facility] Comment on above: Performed By: #### C MP #### [facility] [address] [place] [address] Dr. Jeffrey Thomas UA PROTEIN Negative Normal NEGATIVE/ TRACE [facility] Comment on above: Performed By: #### C MP #### [facility] [address] [address] [address] Jeffrey Thomas UR MICRO IND NOT INDICATED Normal [facility] Comment on above: Performed By: #### C MP #### [facility] [address] [place] [address] Dr. Jeffrey Thomas Urobilinogen Qn (U) 0.2 {Bere'U}/dL Normal 0.2 - 1. [address] [facility] Comment on above: Performed By: #### C MP #### [facility] [address] [place] [address] Dr. Jeffrey Thomas PROF 14(COMP METB)on 022 Albumin [Mass/Vol] 2.9 g/dL Critically low 3.4-5.0 [facility] Comment on above: Performed By: #### C MP #### [facility] [address] [place] [address] Dr. Jeffrey Thomas Albumin/Globulin [Mass ratio] 1.0 {ratio} Normal [facility] Comment on above: Performed By: #### C MP #### [facility] [address] [place] [address] Dr. Jeffrey Thomas ALP [Catalytic activity/Vol] 116 U/L Normal 46-[address] [facility] Comment on above: Performed By: #### C MP #### [facility] [address] [place] [address] Dr. Jeffrey Thomas ALT [Catalytic activity/Vol] 12 U/L Critically low 14-[address] [facility] Comment on above: Performed By: #### C MP #### [facility] [address] [place] [address] Dr. Jeffrey Thomas Anion gap [Moles/Vol] 11.8 mmol/L Normal [facility] Comment on above: Performed By: #### C MP #### [facility] [address] [address] [address] Jeffrey Thomas AST [Catalytic activity/Vol] 12 U/L Critically low 15-[address] [facility] Comment on above: Performed By: #### C MP #### [facility] [address] [address] [address] Jeffrey Thomas Bilirubin [Mass/Vol] 0.1 mg/dL Critically low 0.2-1.[address] [facility] Comment on above: Performed By: #### C MP #### [facility] [address] [place] [address] Dr. Jeffrey Thomas Calcium [Mass/Vol] 8.2 mg/dL Critically low 8.5-10.[address] [facility] Comment on above: Performed By: #### C MP #### [facility] [address] [address] [address] Jeffrey Thomas Chloride [Moles/Vol] 111 mmol/L Critically high 98-[address] [facility] Comment on above: Performed By: #### C MP #### [facility] [address] [place] [address] Dr. Jeffrey Thomas CO2 [Moles/Vol] 20.2 mmol/L Critically low 21.0-32.[address] [facility] Comment on above: Performed By: #### C MP #### [facility] [address] [address] [address] Jeffrey Thomas Creatinine [Mass/Vol] 1.26 mg/dL Critically high 0.55-1.[address] [facility] Comment on above: Performed By: #### C MP #### [facility] [address] [place] [address] Dr. Jeffrey Thomas EGFR-AF ECUADOREAN 52 mL/min/1.73m2 Critically low >=[address] [facility] Comment on above: Performed By: #### C MP #### [facility] [address] [place] [address] Dr. Jeffrey Thomas EGFR-NON AF ECUADOREAN 43 mL/min/1.73m2 Critically low >=[address] [facility] Comment on above: Performed By: #### C MP #### [facility] [address] [address] [address] Jeffrey Thomas Globulin (S) [Mass/Vol] 3.0 g/dL Normal [facility] Comment on above: Performed By: #### C MP #### [facility] [address] [address] [address] Jeffrey Thomas Glucose [Mass/Vol] 131 mg/dL Critically high 74-106 [facility] Comment on above: Performed By: #### C MP #### [facility] [address] [address] [address] Jeffrey Thomas Potassium [Moles/Vol] 4.0 mmol/L Normal 3.5-5.[address] [facility] Comment on above: Performed By: #### C MP #### [facility] [address] [address] [address] Jeffrey Thomas Protein [Mass/Vol] 5.9 g/dL Critically low 6.4-8.2 [facility] Comment on above: Performed By: #### C MP #### [facility] [address] [address] [address] Jeffrey Thomas Sodium [Moles/Vol] 139 mmol/L Normal 136-145 [facility] Comment on above: Performed By: #### C MP #### [facility] [address] [address] [address] Jeffrey Thomas Urea nitrogen [Mass/Vol] 30.0 mg/dL Critically high 7.0-18.[address] [facility] Comment on above: Performed By: #### C MP #### [facility] [address] [address] [address] Jeffrey Thomas Urea nitrogen/Creatinine [Mass ratio] 23.8 mg/mg Normal [facility] Comment on above: Performed By: #### C MP #### [facility] [address] [address] [address] Jeffrey Thomas Albumin [Mass/Vol] 3.1 g/dL Critically low 3.4-5.[address] [facility] Comment on above: Performed By: #### C MP #### [facility] [address] [place] [address] Dr. Jeffrey Thomas Albumin/Globulin [Mass ratio] 1.0 {ratio} Normal [facility] Comment on above: Performed By: #### C MP #### [facility] [address] [address] [address] Jeffrey Thomas ALP [Catalytic activity/Vol] 119 U/L Critically high 46-[address] [facility] Comment on above: Performed By: #### C MP #### [facility] [address] [address] [address] Jeffrey Thomas ALT [Catalytic activity/Vol] 13 U/L Critically low 14-[address] [facility] Comment on above: Performed By: #### C MP #### [facility] [address] [place] [address] Dr. Jeffrey Thomas Anion gap [Moles/Vol] 11.9 mmol/L Normal [facility] Comment on above: Performed By: #### C MP #### [facility] [address] [place] [address] Dr. Jeffrey Thomas AST [Catalytic activity/Vol] 15 U/L Normal 15-[address] [facility] Comment on above: Performed By: #### C MP #### [facility] [address] [place] [address] Dr. Jeffrey Thomas Bilirubin [Mass/Vol] 0.3 mg/dL Normal 0.2-1.[address] [facility] Comment on above: Performed By: #### C MP #### [facility] [address] [place] [address] Dr. Jeffrey Thomas Calcium [Mass/Vol] 8.5 mg/dL Normal 8.5-10.1 [facility] Comment on above: Performed By: #### C MP #### [facility] [address] [place] [address] Dr. Jeffrey Thomas Chloride [Moles/Vol] 109 mmol/L Critically high 98-[address] [facility] Comment on above: Performed By: #### C MP #### [facility] [address] [address] [address] Jeffrey Thomas CO2 [Moles/Vol] 21.9 mmol/L Normal 21.0-32.[address] [facility] Comment on above: Performed By: #### C MP #### [facility] [address] [address] [address] Jeffrey Thomas Creatinine [Mass/Vol] 1.18 mg/dL Critically high 0.55-1.[address] [facility] Comment on above: Performed By: #### C MP #### [facility] [address] [address] [address] Jeffrey Thomas EGFR-AF ECUADOREAN 56 mL/min/1.73m2 Critically low >=[address] [facility] Comment on above: Performed By: #### C MP #### [facility] [address] [address] [address] Jeffrey Thomas EGFR-NON AF ECUADOREAN 46 mL/min/1.73m2 Critically low >=[address] [facility] Comment on above: Performed By: #### C MP #### [facility] [address] [address] [address] Jeffrey Thomas Globulin (S) [Mass/Vol] 3.1 g/dL Normal [facility] Comment on above: Performed By: #### C MP #### [facility] [address] [address] [address] Jeffrey Thomas Glucose [Mass/Vol] 94 mg/dL Normal 74-106 [facility] Comment on above: Performed By: #### C MP #### [facility] [address] [address] [address] Jeffrey Thomas Potassium [Moles/Vol] 3.8 mmol/L Normal 3.5-5.[address] [facility] Comment on above: Performed By: #### C MP #### [facility] [address] [address] [address] Jeffrey Thomas Protein [Mass/Vol] 6.2 g/dL Critically low 6.4-8.2 [facility] Comment on above: Performed By: #### C MP #### [facility] [address] [address] [address] Jeffrey Thomas Sodium [Moles/Vol] 139 mmol/L Normal 136-145 [facility] Comment on above: Performed By: #### C MP #### [facility] [address] [address] [address] Jeffrey Thomas Urea nitrogen [Mass/Vol] 27.0 mg/dL Critically high 7.0-18.[address] [facility] Comment on above: Performed By: #### C MP #### [facility] [address] [address] [address] Jeffrey Thomas Urea nitrogen/Creatinine [Mass ratio] 22.9 mg/mg Normal [facility] Comment on above: Performed By: #### C MP #### [facility] [address] [place] [address] Dr. Jeffrey Thomas Albumin [Mass/Vol] 3.3 g/dL Critically low 3.4-5.[address] [facility] Comment on above: Performed By: #### A MM #### [facility] [address] [place] [address] Dr. Jeffrey Thomas Albumin/Globulin [Mass ratio] 1.0 {ratio} Normal [facility] Comment on above: Performed By: #### A MM #### [facility] [address] [place] [address] Dr. Jeffrey Thomas ALP [Catalytic activity/Vol] 127 U/L Critically high 46-[address] [facility] Comment on above: Performed By: #### A MM #### [facility] [address] [place] [address] Dr. Jeffrey Thomas ALT [Catalytic activity/Vol] 10 U/L Critically low 14-[address] [facility] Comment on above: Performed By: #### A MM #### [facility] [address] [place] [address] Dr. Jeffrey Thomas Anion gap [Moles/Vol] 12.9 mmol/L Normal [facility] Comment on above: Performed By: #### A MM #### [facility] [address] [address] [address] Jeffrey Thomas AST [Catalytic activity/Vol] 20 U/L Normal 15-[address] [facility] Comment on above: Performed By: #### A MM #### [facility] [address] [address] [address] Jeffrey Thomas Bilirubin [Mass/Vol] 0.3 mg/dL Normal 0.2-1.[address] [facility] Comment on above: Performed By: #### A MM #### [facility] [address] [place] [address] Dr. Jeffrey Thomas Calcium [Mass/Vol] 8.9 mg/dL Normal 8.5-10.1 [facility] Comment on above: Performed By: #### A MM #### [facility] [address] [place] [address] Dr. Jeffrey Thomas Chloride [Moles/Vol] 106 mmol/L Normal 98-[address] [facility] Comment on above: Performed By: #### A MM #### [facility] [address] [place] [address] Dr. Jeffrey Thomas CO2 [Moles/Vol] 21.8 mmol/L Normal 21.0-32.[address] [facility] Comment on above: Performed By: #### A MM #### [facility] [address] [place] [address] Dr. Jeffrey Thomas Creatinine [Mass/Vol] 1.54 mg/dL Critically high 0.55-1.[address] [facility] Comment on above: Performed By: #### A MM #### [facility] [address] [place] [address] Dr. Jeffrey Thomas EGFR-AF ECUADOREAN 41 mL/min/1.73m2 Critically low >=60 [facility] Comment on above: Performed By: #### A MM #### [facility] [address] [place] [address] Dr. Jeffrey Thomas EGFR-NON AF ECUADOREAN 34 mL/min/1.73m2 Critically low >=60 [facility] Comment on above: Performed By: #### A MM #### [facility] [address] [place] [address] Dr. Jeffrey Thomas Globulin (S) [Mass/Vol] 3.4 g/dL Normal [facility] Comment on above: Performed By: #### A MM #### [facility] [address] [address] [address] Jeffrey Thomas Glucose [Mass/Vol] 139 mg/dL Critically high 74-106 [facility] Comment on above: Performed By: #### A MM #### [facility] [address] [address] [address] Jeffrey Thomas Potassium [Moles/Vol] 3.7 mmol/L Normal 3.5-5.[address] [facility] Comment on above: Performed By: #### A MM #### [facility] [address] [place] [address] Dr. Jeffrey Thomas Protein [Mass/Vol] 6.7 g/dL Normal 6.4-8.2 [facility] Comment on above: Performed By: #### A MM #### [facility] [address] [address] [address] Jeffrey Thomas Sodium [Moles/Vol] 139 mmol/L Normal 136-145 [facility] Comment on above: Performed By: #### A MM #### [facility] [address] [address] [address] Jeffrey Thomas Urea nitrogen [Mass/Vol] 31.0 mg/dL Critically high 7.0-18.[address] [facility] Comment on above: Performed By: #### A MM #### [facility] [address] [address] [address] Jeffrey Thomas Urea nitrogen/Creatinine [Mass ratio] 20.1 mg/mg Normal [facility] Comment on above: Performed By: #### A MM #### [facility] [address] [place] [address] Dr. Jeffrey Thomas PROTIMEon 12-12-2021 INR Coag (PPP) [Relative time] 1.13 {INR} Normal [facility] Comment on above: Performed By: #### T 4LC #### [facility] [address] [place] [address] Dr. Jeffrey Thomas INR GUIDELINES SEE BELOW Normal [facility] Comment on above: Result Comment: MERARI RED INR: 2.0 - 3.0 CONDITIONS NOT LISTED BELOW 2.5 - 3.5 FOR PROSTHETIC HEART VALVE REPLACEMENT 2.5 - 3.5 RECURRENT THROMBOSIS Performed By: #### T 4LC #### [facility] [address] [address] [address] Jeffrey Thomas PT Coag (PPP) [Time] 12.1 s Critically high 9.0-11.[address] [facility] Comment on above: Performed By: #### T 4LC #### [facility] [address] [address] [address] Jeffrey Thomas TSHon 12-12-2021 TSH 0.729 uIU/mL Normal 0.358-3.740 [facility] Comment on above: Performed By: #### C MP #### [facility] [address] [address] [address] Jeffrey Thomas XR CHEST 1 Von [...] GUILLE RAY Date: 2021-12-11 23:48 Normal [facility] PT Coag (PPP) [Time]on 01-08 INR Coag (PPP) [Relative time] 1.5 {INR} <=5.0 [facility] Comment on above: The recommended ther apeutic INR range for most cardiac indications is 2.0-3.0 For high intensity therapy (i.e. mechanical heart valves), the recommended range is 2.5-3.5 Interpretation and review of laboratory results Abnormal [facility] PT Coag (Bld) [Time] 18.1 s High [facility] Basic metabolic 2000 panelon 01-07-2021 Calcium [Mass/Vol] 8.8 mg/dL Normal 8.5-10.6 [facility] Chloride [Moles/Vol] 107 mmol/L Normal 98-107 [facility] [place] CO2 [Moles/Vol] 25 mmol/L Normal 21-32 [facility] Creatinine [Mass/Vol] 1.87 mg/dL High 0.55-1.02 [facility] Glucose [Mass/Vol] 96 mg/dL Normal 70-99 [facility] Potassium [Moles/Vol] 4.5 mmol/L Normal 3.5-5.1 [facility] Sodium [Moles/Vol] 141 mmol/L Normal 136-145 [facility] Urea nitrogen (BldV) [Mass/Vol] 27 mg/dL High 7.0-18.0 [facility] Urea nitrogen/Creatinine [Mass ratio] 14 mg/mg Normal [facility] Coronavirus (COVID-19/SARS-C oV-2) RAPIDon 01-07-2021 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 N Normal [facility] First test N Normal [facility] ICU N Normal [facility] Illness or injury onset date and time Normal [facility] Patient was hospitalized because of this condition Y Normal [facility] status N Normal [facility] Resides in congregate care setting N Normal [facility] SARS-CoV-2 (COVID-19) RNA REBECCA+probe Ql (Resp) Not detected Normal NDET [facility] Comment on above: Result Comment: This test was performed via the Mobile [employer] NOW COVID 19 assay and has been authorized by FDA under an Emergency Use Authorization (EUA). The assay is validated for nasopharyngeal (PMP), nasal, and oropharyngeal (OP) direct swabs. The [...] Symptomatic as defined by CDC N Normal [facility] Gentamicin Trough Levelon Gentamicin trough [Mass/Vol] 1.0 mg/L Normal [facility] Comment on above: Result Comment: Refe rence range: 0.0 to 2.0 Unit: UG/ML PT Coag (PPP) [Time]on 01-07 INR Coag (Bld) [Relative time] 1.3 {INR} Normal [facility] Comment on above: Order Comment: Preho spitalization [...] Coag (PPP) [Time] 15.7 s High 11.9-14.6 [facility] Comment on above: Order Comment: Preho spitalization had reported chronic use of Coumadin which was held for surgery. Tobramycin random [Moles/Vol ]on 01-07-2021 Tobramycin [Mass/Vol] SEE SEPARATE REPORT Normal 0.5-1 .5 [facility] Comment on above: Result Comment: SEE NOTES REVIEW TAB FOR RESULTS Basic metabolic 2000 panelon 01-06-2021 Calcium [Mass/Vol] 8.6 mg/dL Normal 8.5-10.6 [facility] Chloride [Moles/Vol] 107 mmol/L Normal 98-107 [facility] [place] CO2 [Moles/Vol] 24 mmol/L Normal 21-32 [facility] Creatinine [Mass/Vol] 1.82 mg/dL High 0.55-1.[address] [facility] Glucose [Mass/Vol] 87 mg/dL Normal 70-99 [facility] Potassium [Moles/Vol] 4.8 mmol/L Normal 3.5-5.1 [facility] Sodium [Moles/Vol] 140 mmol/L Normal 136-145 [facility] Urea nitrogen (BldV) [Mass/Vol] 30 mg/dL High 7.0-18.0 [facility] Urea nitrogen/Creatinine [Mass ratio] 16 mg/mg Normal [facility] Hematocriton 01-06-2021 Hematocrit (Bld) [Volume fraction] 28.9 % Low 34.0-50.0 [facility] Hemoglobinon 01-06-2021 Hemoglobin (Bld) [Mass/Vol] 9.4 g/dL Low 11.5-17.0 [facility] Histopathology Requeston Relevant diagnostic tests/laboratory data Narrative SPECIMEN DESCRIPTION 1 LEFT KNEE TISSUE RESULT SEE SEPARATE REPORT RESULT SEE NOTES REVIEW TAB FOR RESULTS ROUTINE LAB Report Date: 01/06/2021 09:09:05 Collect Date: 01/03/2021 12:44:00 Normal [facility] PT Coag (PPP) [Time]on 01-06 INR Coag (Bld) [Relative time] 1.1 {INR} Normal [facility] Comment on above: Order Comment: Preho spitalization [...] Coag (PPP) [Time] 14.2 s Normal 11.9-14.6 [facility] Comment on above: Order Comment: Preho spitalization had reported chronic use of Coumadin which was held for surgery. Basic metabolic 2000 panelon 01-05-2021 Calcium [Mass/Vol] 8.1 mg/dL Low 8.5-10.6 [facility] Chloride [Moles/Vol] 108 mmol/L High 98-107 [facility] CO2 [Moles/Vol] 27 mmol/L Normal 21-32 [facility] Creatinine [Mass/Vol] 2.05 mg/dL High 0.55-1.02 Ar[facility] Glucose [Mass/Vol] 91 mg/dL Normal 70-99 [facility] Potassium [Moles/Vol] 4.7 mmol/L Normal 3.5-5.1 Ar[facility] Sodium [Moles/Vol] 141 mmol/L Normal 136-145 [facility] Urea nitrogen (BldV) [Mass/Vol] 36 mg/dL High 7.0-18.0 [facility] Urea nitrogen/Creatinine [Mass ratio] 18 mg/mg Normal [facility] CBC W Auto Differential pane l (Bld)on 01-05-2021 Basophils (Bld) [#/Vol] 0.1 thou/mcL Normal 0.0-0.2 [facility] Basophils/100 WBC (Bld) 0.9 % Normal 0-3 [facility] Differential cell count method Nom (Bld) AUTOMATED DIFFERENTIAL Normal [facility] Eosinophils (Bld) [#/Vol] 0.2 thou/mcL Normal 0.0-0.4 [facility] Eosinophils/100 WBC (Bld) 2.2 % Normal 0-7 [facility] Erythrocyte distribution width (RBC) [Entitic vol] 16.0 % High 11.7-15.0 [facility] Hematocrit (Bld) [Volume fraction] 21.4 % Low 34.0-50.0 [facility] Hemoglobin (Bld) [Mass/Vol] 6.8 g/dL Off scale low 11.5-17.0 [facility] Comment on above: Result Comment: RESU LTS VERIFIED AND CALLED TO/READ BACK BY ALFONSO HILARIO 10.6.21 @9217.BA Lymphocytes (Bld) [#/Vol] 0.9 thou/mcL Normal 0.7-4.5 [facility] Lymphocytes/100 WBC (Bld) 12.7 % Low 14-46 [facility] MCH (RBC) [Entitic mass] 27.2 Picograms Normal 27.0-34.0 [facility] MCHC (RBC) [Mass/Vol] 31.8 g/dL Low 32.0-36.0 [facility] MCV (RBC) [Entitic vol] 85.5 fL Normal 80-98 [facility] Monocytes (Bld) [#/Vol] 0.6 thou/mcL Normal 0.1-1.0 [facility] Monocytes/100 WBC (Bld) 8.1 % Normal 4-13 [facility] Neutrophils (Bld) [#/Vol] 5.7 thou/mcL Normal 1.5-7.8 [facility] Neutrophils/100 WBC (Bld) 76.1 % High 40-74 [facility] Platelet mean volume (Bld) [Entitic vol] 10.5 fL Normal 7.5-11.2 [facility] Platelets (Bld) [#/Vol] 141 thou/mcL Normal 140-415 [facility] RBC (Bld) [#/Vol] 2.50 x(10)6/mcL Low 3.80-5.60 [facility] WBC (Bld) [#/Vol] 7.5 thou/mcL Normal 4.0-10.5 [facility] Gentamicin Trough Levelon Gentamicin trough [Mass/Vol] 3.9 mg/L Critically high [facility] Comment on above: Result Comment: Refe rence range: 0.0 to 2.0 Unit: UG/ML (NOTE) Critical value(s) on tests gentt called to and read-back by clementine nuñez at location [facility] by time called _01/05/21 12:20 Hematocriton 01-05-2021 Hematocrit (Bld) [Volume fraction] 27.2 % Low 34.0-50.0 [facility] Hemoglobinon 01-05-2021 Hemoglobin (Bld) [Mass/Vol] 8.8 g/dL Low 11.5-17.0 [facility] PT Coag (PPP) [Time]on 01-05 INR Coag (Bld) [Relative time] 1.1 {INR} Normal [facility] Comment on above: Order Comment: Preho spitalization [...] Pathology studyon 01-05-2021 Case report TRINITY GODINEZ [id number] [id number] F [id number] RM/BD [id number] 01 ORDERING PHYSICIAN: CALOS SMITH [...] cut surface is rogers-pink, soft and homogeneous. 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 (RS/1C/MS/RT) Gross examination was performed at [facility]. RODRIGOB:MEI 01/04/21 By: LIHCA ZEPEDA M.D. (Electronic Signature) MICROSCOPIC: The technical component was performed at [facility], [address] [place] [address]. Microscopic examination was performed. Case resulted at [facility]. DIAGNOSIS: Left knee tissue, revision arthroplasty: -DENSE FIBROUS TISSUE WITH PATCHY CHRONIC INFLAMMATION, FOREIGN BODY GIANT CELL REACTION, AND OSSEOUS METAPLASIA. NOTE: Perivascular lymphocytic inflammation is mild and patchy. JH2:JH2:JH21 END OF REPORT [employer] Comment on above: END OF REPORT [employer] Prothrombin Timeon 1 PT Coag (PPP) [Time] 14.5 s Normal 11.9-14.6 [facility] Comment on above: Order Comment: Preho spitalization had reported chronic use of Coumadin which was held for surgery. Rh Confirm Nom (Bld)on 01-05 ABO group Nom (Bld) A Normal [facility] Rh Nom (Bld) Positive Normal [facility] Tobramycin random [Moles/Vol ]on 01-05-2021 Tobramycin [Mass/Vol] SEE SEPARATE REPORT Normal 0.5-1 .5 [facility] Comment on above: Result Comment: SEE NOTES REVIEW TAB FOR RESULTS Vancomycin [Moles/Vol]on Vancomycin random [Mass/Vol] <3.5 Off scale low 10.0-50.0 [facility] Basic metabolic 2000 panelon 01-04-2021 Calcium [Mass/Vol] 8.5 mg/dL Normal 8.5-10.6 [facility] Chloride [Moles/Vol] 104 mmol/L Normal 98-107 [facility] [place] CO2 [Moles/Vol] 26 mmol/L Normal 21-32 [facility] Creatinine [Mass/Vol] 2.32 mg/dL High 0.55-1.[address] [facility] Glucose [Mass/Vol] 90 mg/dL Normal 70-99 [facility] Potassium [Moles/Vol] 5.7 mmol/L Critically high 3.5-5.1 [facility] Comment on above: Result Comment: RESU LTS VERIFIED AND CALLED TO/READ BACK BY ABRAM MCQUEEN 10..21 @ 0640. Sodium [Moles/Vol] 138 mmol/L Normal 136-145 [facility] Urea nitrogen (BldV) [Mass/Vol] 45 mg/dL High 7.0-18.0 [facility] Urea nitrogen/Creatinine [Mass ratio] 19 mg/mg Normal [facility] CBC W Auto Differential pane l (Bld)on 01-04-2021 Basophils (Bld) [#/Vol] 0.0 thou/mcL Normal 0.0-0.2 [facility] Basophils/100 WBC (Bld) 0.3 % Normal 0-3 [facility] Differential cell count method Nom (Bld) AUTOMATED DIFFERENTIAL Normal [facility] Eosinophils (Bld) [#/Vol] 0.0 thou/mcL Normal 0.0-0.4 [facility] Eosinophils/100 WBC (Bld) 0.2 % Normal 0-7 [facility] Erythrocyte distribution width (RBC) [Entitic vol] 15.5 % High 11.7-15.0 [facility] Hematocrit (Bld) [Volume fraction] 23.5 % Low 34.0-50.0 [facility] Hemoglobin (Bld) [Mass/Vol] 7.5 g/dL Low 11.5-17.0 [facility] Lymphocytes (Bld) [#/Vol] 1.0 thou/mcL Normal 0.7-4.5 [facility] Lymphocytes/100 WBC (Bld) 13.3 % Low 14-46 [facility] MCH (RBC) [Entitic mass] 27.4 Picograms Normal 27.0-34.0 [facility] MCHC (RBC) [Mass/Vol] 32.0 g/dL Normal 32.0-36.0 [facility] MCV (RBC) [Entitic vol] 85.5 fL Normal 80-98 [facility] Monocytes (Bld) [#/Vol] 0.6 thou/mcL Normal 0.1-1.0 [facility] Monocytes/100 WBC (Bld) 7.5 % Normal 4-13 [facility] Neutrophils (Bld) [#/Vol] 5.8 thou/mcL Normal 1.5-7.8 [facility] Neutrophils/100 WBC (Bld) 78.7 % High 40-74 [facility] Platelet mean volume (Bld) [Entitic vol] 10.5 fL Normal 7.5-11.2 [facility] Platelets (Bld) [#/Vol] 167 thou/mcL Normal 140-415 [facility] RBC (Bld) [#/Vol] 2.75 x(10)6/mcL Low 3.80-5.60 [facility] WBC (Bld) [#/Vol] 7.3 thou/mcL Normal 4.0-10.5 [facility] PT Coag (PPP) [Time]on 01-04 INR Coag (Bld) [Relative time] 1.0 {INR} Normal [facility] Comment on above: Order Comment: Preho spitalization [...] Coag (PPP) [Time] 13.6 s Normal 11.9-14.6 [facility] Comment on above: Order Comment: [...] mid left lung, likely atelectasis or scarring. [facility] thanks you for the opportunity to care for your patient. Workstation ID: [id number] - [id number] FINAL REPORT Dictated By: Garo Albarado MD 01/04/2021 11:41 Assigned Physician: Garo Albarado MD Reviewed and Electronically Signed By: Garo Albarado MD 01/04/2021 11:45 Transcribed by: [facility] 01/04/2021 11:41 Technologist: [facility] Garo Albarado MD - 01/08/2021 EXAMINATION [...] Albarado MD 01/04/2021 11:45 Transcribed by: [facility] 01/04/2021 11:41 Technologist: RAQUEL [employer] Radiology Study observation (narrative) [employer] XR CHEST 1 VIEWOrdered By: Austyn Albarado on 01-04-2021 [employer] Work Phone: XR Chest 1 Viewon 01-04-2021 [...] Albarado MD 01/04/2021 11:45 Transcribed by: [facility] 01/04/2021 11:41 Technologist: RAQUEL Normal [facility] Blood type and Indirect anti body screen panel (Bld)on 01-03-2021 Blood group antibody screen Ql Negative Normal NEG [facility] Rh Nom (Bld) Positive Normal [facility] Cell Count Body Fluidon 0 Cell count panel (Body fld) COLOR, FLUID RED Normal [facility] Culture Aerobicon 01-03-2021 Bacteria identified Aer cx Nom (Unsp spec) [facility][NOTE 3] Microbiology PROCEDURE: Culture Aerobic SOURCE: Tissue BODY [...] NO EPITHELIALS SEEN, NO ORGANISMS SEEN Normal [facility] Comment on above: Performed By: #### 6 34-6 ####[address] Bacteria identified Aer cx Nom (Unsp spec) [facility][NOTE 3] Microbiology PROCEDURE: Culture Aerobic SOURCE: Tissue BODY [...] NO EPITHELIALS SEEN, NO ORGANISMS SEEN Normal [facility] Comment on above: Performed By: #### 6 34-6 ####[address] Bacteria identified Aer cx Nom (Unsp spec) [facility][NOTE 3] Microbiology PROCEDURE: Culture Aerobic SOURCE: Tissue BODY [...] NO EPITHELIALS SEEN, NO ORGANISMS SEEN Normal [facility] Comment on above: Performed By: #### 6 34-6 ####[address] Bacteria identified Aer cx Nom (Unsp spec) [facility][NOTE 3] Microbiology PROCEDURE: Culture Aerobic SOURCE: Tissue BODY [...] NO EPITHELIALS SEEN, NO ORGANISMS SEEN Normal [facility] Comment on above: Performed By: #### 6 34-6 ####[address] Culture Anaerobicon 01-04-20 21 Bacteria identified Anaer cx Nom (Unsp spec) [facility][NOTE 3] Microbiology PROCEDURE: Culture Anaerobic SOURCE: Tissue BODY [...] EDT CONTRIBUTOR_SYSTEM, CO_PN CULTURE IN PROGRESS Normal [facility] Comment on above: Performed By: #### 6 35-3 ####[address] Bacteria identified Anaer cx Nom (Unsp spec) [facility][NOTE 3] Microbiology PROCEDURE: Culture Anaerobic SOURCE: Tissue BODY [...] EDT CONTRIBUTOR_SYSTEM, CO_PN CULTURE IN PROGRESS Normal [facility] Comment on above: Performed By: #### 6 35-3 ####[address] Bacteria identified Anaer cx Nom (Unsp spec) [facility][NOTE 3] Microbiology PROCEDURE: Culture Anaerobic SOURCE: Tissue BODY [...] 23:34 EDT CONTRIBUTOR_SYSTEM, CO_PN CULTURE IN PROGRESS [facility] Comment on above: Performed By: #### 6 35-3 ####[address] Bacteria identified Anaer cx Nom (Unsp spec) [facility][NOTE 3] Microbiology PROCEDURE: Culture Anaerobic SOURCE: Tissue BODY [...] 23:34 EDT CONTRIBUTOR_SYSTEM, CO_PN CULTURE IN PROGRESS [facility] Comment on above: Performed By: #### 6 35-3 ####[facility] [address], [place] Bacteria identified Anaer cx Nom (Unsp spec) [facility][NOTE 3] Microbiology PROCEDURE: Culture Anaerobic SOURCE: Joint Fl [...] 22:43 EDT CONTRIBUTOR_SYSTEM, CO_PN CULTURE IN PROGRESS [facility] Comment on above: Performed By: #### 6 35-3 ####[id number] [place], [place] Culture Funguson 01-03-2021 Fungus identified Cx Nom (Unsp spec) [facility][NOTE 3] Microbiology PROCEDURE: Culture Fungus SOURCE: Tissue BODY [...] WILL BE HELD FOR 1-4 WEEKS Normal [facility] Comment on above: Performed By: #### 5 80-1 ####[address] Fungus identified Cx Nom (Unsp spec) [facility][NOTE 3] Microbiology PROCEDURE: Culture Fungus SOURCE: Tissue BODY [...] WILL BE HELD FOR 1-4 WEEKS Normal [facility] Comment on above: Performed By: #### 5 80-1 ####[address] Fungus identified Cx Nom (Unsp spec) [facility][NOTE 3] Microbiology PROCEDURE: Culture Fungus SOURCE: Tissue BODY [...] CULTURE WILL BE HELD FOR 1-4 WEEKS [facility] Comment on above: Performed By: #### 5 80-1 ####[address] Fungus identified Cx Nom (Unsp spec) [facility][NOTE 3] Microbiology PROCEDURE: Culture Fungus SOURCE: Tissue BODY [...] CULTURE WILL BE HELD FOR 1-4 WEEKS [facility] Comment on above: Performed By: #### 5 80-1 ####[address] Fungus identified Cx Nom (Unsp spec) [facility][NOTE 3] Microbiology PROCEDURE: Culture Fungus SOURCE: Joint Fl [...] WILL BE HELD FOR 1-4 WEEKS Normal [facility] Comment on above: Performed By: #### 5 80-1 ####[facility] [address] [place], [place] Hematocriton 01-03-2021 Hematocrit (Bld) [Volume fraction] 31.6 % Low 34.0-50.0 [facility] Hemoglobinon 01-03-2021 Hemoglobin (Bld) [Mass/Vol] 10.4 g/dL Low 11.5-17.0 [facility] OR Nursingon 01-03-2021 OR Nursing Normal [facility] PACU I Nursingon 01-03-2021 PACU I Nursing CO NA PACU I Nursing Record Summary Primary Physician: Calos Smith Jr, MD Finalized Date/Time: 01/03/21 15:55:58 Pt. Name: TRINITY GODINEZ/Sex: 1955 Female Med Rec #: [id number] Physician: Calos Smith Jr, MD Financial #: [id number] Pt. Type: I Room/Bed: / Admit/Disch: 01/03/21 09:09:00 - Institution: [place] NA OR Main PACU I Case Times [...] By: Taryn Leonard RN 01/03/21 15:55 Normal [facility] PT Coag (PPP) [Time]on 01-03 INR Coag (Bld) [Relative time] 1.1 {INR} Normal [facility] Comment on above: Result Comment: DURI NG [...] Austyn Viveros/Sex: 1955 Female Med Rec #: [id number] Physician: Calos Smith Jr, MD Financial #: [id number] Pt. Type: I Room/Bed: / Admit/Disch: 01/03/21 [...] Zoya Hinson RN, I 01/03/21 12:12 Normal [facility] Prothrombin Timeon PT Coag (PPP) [Time] 13.7 s Normal 11.9-14.[address] [facility] Surgical Pathology Final Rep tom 01-03-2021 Pathology study TRINITY GODINEZ [id number] [id number] F [id number] /[id number] ORDERING PHYSICIAN: CALOS SMITH [...] cut surface is rogers-pink, soft and homogeneous. 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 (RS/1C/MS/RT) Gross examination was performed at [facility]. AJB:MEI 01/04/21 By: LICHA ZEPEDA M.D. (Electronic Signature) MICROSCOPIC: The technical component was performed at [facility], [address] [place] [address]. Microscopic examination was performed. Case resulted at [facility]. DIAGNOSIS: Left knee tissue, revision arthroplasty: -DENSE FIBROUS TISSUE WITH PATCHY CHRONIC INFLAMMATION, FOREIGN BODY GIANT CELL REACTION, AND OSSEOUS METAPLASIA. NOTE: Perivascular lymphocytic inflammation is mild and patchy. JH2:JH2:JH21 END OF REPORT END OF REPORT Normal [facility] XR KNEE 1-2 VIEWS LTon 01-03 LEFT [...] Kerri Reyna MD 01/03/2021 15:53 Transcribed by: [facility] 01/03/2021 15:49 Technologist: EILEEN IMG HISTORICAL RESULTS Kerri Reyna MD - 01/08/2021 [...] Kerri Reyna MD 01/03/2021 15:53 Transcribed by: [facility] 01/03/2021 15:49 Technologist: EILEEN Tanvi MTPV Radiology Study observation (narrative) [employer] XR KNEE 1-2 VIEWS LTOrdered By: Kerri Reyna on 01-03-2021 [employer] Work Phone: XR Knee 1-2 Views LTon [...] Left knee arthroplasty revision as detailed above. [facility] thanks you for the opportunity to care for your patient. Workstation ID: [id number] - [id number] FINAL REPORT Dictated By: Kerri Reyna MD 01/03/2021 15:49 Assigned Physician: Kerri Reyna MD Reviewed and Electronically Signed By: Kerri Reyna MD 01/03/2021 15:53 Transcribed by: STEW 01/03/2021 15:49 Technologist: DT Normal [facility] aPTT Coag (Bld) [Time]on aPTT Coag (PPP) [Time] 25.0 s Normal 23.2-34.6 [facility] Histopathology Requeston Relevant diagnostic tests/laboratory data Narrative SPECIMEN DESCRIPTION 1 LEFT KNEE RESULT SEE SEPARATE REPORT RESULT SEE NOTES REVIEW TAB FOR RESULTS ROUTINE LAB Report Date: 11/24/2020 05:51:32 Collect Date: 11/19/2020 13:56:00 Normal [facility] Basic metabolic 2000 panelon 11-22-2020 Calcium [Mass/Vol] 8.0 mg/dL Low 8.5-10.6 [facility] Chloride [Moles/Vol] 103 mmol/L Normal 98-107 Moun [facility] [place] CO2 [Moles/Vol] 29 mmol/L Normal 21-32 [facility] Creatinine [Mass/Vol] 1.09 mg/dL High 0.55-1.02 [facility] Glucose [Mass/Vol] 93 mg/dL Normal 70-99 [facility] Potassium [Moles/Vol] 4.4 mmol/L Normal 3.5-5.1 [facility] Sodium [Moles/Vol] 138 mmol/L Normal 136-145 [facility] Urea nitrogen (BldV) [Mass/Vol] 18 mg/dL Normal 7.0-18.0 [facility] Urea nitrogen/Creatinine [Mass ratio] 17 mg/mg Normal [facility] CBC W Auto Differential pane l (Bld)on 11-22-2020 Basophils (Bld) [#/Vol] 0.0 thou/mcL Normal 0.0-0.2 [facility] Basophils/100 WBC (Bld) 0.7 % Normal 0-3 [facility] Differential cell count method Nom (Bld) AUTOMATED DIFFERENTIAL Normal [facility] Eosinophils (Bld) [#/Vol] 0.2 thou/mcL Normal 0.0-0.4 [facility] Eosinophils/100 WBC (Bld) 3.5 % Normal 0-7 [facility] Erythrocyte distribution width (RBC) [Entitic vol] 14.3 % Normal 11.7-15.0 [facility] Hematocrit (Bld) [Volume fraction] 24.8 % Low 34.0-50.0 [facility] Hemoglobin (Bld) [Mass/Vol] 8.2 g/dL Low 11.5-17.0 [facility] Lymphocytes (Bld) [#/Vol] 1.1 thou/mcL Normal 0.7-4.5 [facility] Lymphocytes/100 WBC (Bld) 17.5 % Normal 14-46 [facility] MCH (RBC) [Entitic mass] 29.9 Picograms Normal 27.0-34.0 [facility] MCHC (RBC) [Mass/Vol] 33.0 g/dL Normal 32.0-36.0 [facility] MCV (RBC) [Entitic vol] 90.7 fL Normal 80-98 [facility] Monocytes (Bld) [#/Vol] 0.8 thou/mcL Normal 0.1-1.0 [facility] Monocytes/100 WBC (Bld) 13.0 % Normal 4-13 [facility] Neutrophils (Bld) [#/Vol] 4.2 thou/mcL Normal 1.5-7.8 [facility] Neutrophils/100 WBC (Bld) 65.3 % Normal 40-74 [facility] Platelet mean volume (Bld) [Entitic vol] 10.2 fL Normal 7.5-11.2 [facility] Platelets (Bld) [#/Vol] 176 thou/mcL Normal 140-415 [facility] RBC (Bld) [#/Vol] 2.74 x(10)6/mcL Low 3.80-5.60 Mo [facility] WBC (Bld) [#/Vol] 6.5 thou/mcL Normal 4.0-10.5 [facility] Coronavirus (COVID-19/SARS-C oV-2) RAPIDon 11-22-2020 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 N Normal [facility] First test N [facility] ICU N [facility] Illness or injury onset date and time Normal [facility] Patient was hospitalized because of this condition Y Normal [facility] status N [facility] Resides in congregate care setting N [facility] SARS-CoV-2 (COVID-19) RNA REBECCA+probe Ql (Resp) Not detected Normal NDET [facility] Comment on above: Result Comment: This test was performed via the Mobile [employer] NOW COVID 19 assay and has been authorized by FDA under an Emergency Use Authorization (EUA). The assay is validated for nasopharyngeal (PMP), nasal, and oropharyngeal (OP) direct swabs. The [...] website: www.cdc.gov/coronavirus. Called to Jacquelyn 1500 11/22/20 GKKinjal Symptomatic as defined by CDC N Normal [facility] OR Nursingon 11-22-2020 OR Nursing [facility] PT Coag (PPP) [Time]on 11-22 INR Coag (Bld) [Relative time] 1.4 {INR} [facility] Comment on above: Result Comment: DURI NG [...] room and take this document with you. [facility] 11/22/20 14:48 [address] [place]. [address] PATIENT INFORMATION Name: TRINITY GODINEZ Address: [address] [place] [id number] Age: 65 Years Phone: [phone] : 1955 12:00 MRN: [id number] Sex: Female Race: White Ethnicity: Not Hispan/Lat Admitted From: Clinic or [facility] Medical Service: Orthopedic Surgery Nurse Unit/Bed: ([place]) 2N 0221-01 Admit Date: 11/19/2020 09:38 PCP: Levi Shine MD PHYSICIANS INVOLVED WITH CARE ------ Attending Physicians: Luis Quinn MD , Calos - Orthopaedic Surg Admitting Physician: Luis Quinn MD , Calos - Orthopaedic Surg Primary Care Physician:Levi Shine MD,[facility], - Consults: Shailesh VEGA , Grabiel Maciel - Infectious Disease Andrew VEGA , Jose Carrasco - Internal Medicine Mario VEGA , Trey E - Internal Medicine GenHarley, CHAVO - Internal Medicine Angeles VEGA , Kenzie Carrillo - Internal Medicine FOLLOW-UP APPOINTMENTS: Provider: Specialty: Address: Date: Calos Smith Jr, MD Orthopaedic Surg [address] [facility] [address] [facility] [address] (1) Three Weeks Comment: Call for an Appointment AND ANY QUESTIONS OR CONCERNS Provider: Specialty: Address: Date: Grabiel Hicks MD Infectious Disease [address] [facility] [address] (1) Call for an Appointment Comment: 1) call soon for an appointment with Dr. Hicks in 4-5 weeks, 2) you will be on IV antibiotic until the time of your reimplantation, 3) every Sunday the nursing staff will collect blood work (CBC,SR,CRP,Creat, Vanco Trough) and fax to Dr. Hicks ([phone]), 4) call sooner for fever, chills, nausea, vomiting, diarrhea, rash, pain in your PICC arm or worsening condtion of your wound. Provider: Specialty: Address: Date: Levi Shine MD Family Practice [address] [facility] [address] (1) Follow-up as needed Provider: Specialty: Address: Date: [facility] Follow-up as needed Comment: [facility] [phone] ALLERGIES: NSAIDs : Reaction:Anaphylactic reaction Ancef : Reaction:Anaphylactic reaction morphine : Reaction:Hives : Itching MEASUREMENTS: Last Charted: Weight: 99.00 kg /218 lbs 4 oz ( 11/19/20 10:55:00 ) MEDICATIONS For: TRINITY GODINEZ S This is your list of medication(s). Keep it with you at all times. Your doctor may have changed doses, add, held or stopped some of your medications. Please share this information with your family doctor. Carry this list of medications with you in case of an emergency. Update it when medications are stopped, doses are changed, or new medications (including quxo-efr-rzymjzx products) are added. Ask your doctor if [...] CBC,SR,Creat,CRP, Vanco Trough, fax to Dr. Hicks [phone] 3)IV ATB UNTIL reimplant 4)Call Dr. Hicks [...] Insomnia/Sleep. T (more content not included)... Normal [facility] Prothrombin Timeon 1 PT Coag (PPP) [Time] 16.9 s High 11.9-14.[address] [facility] Vancomycin [Moles/Vol]on Vancomycin random [Mass/Vol] 28.3 ZZ Normal 10.0-50.0 [facility] Basic metabolic 2000 panelon 11-21-2020 Calcium [Mass/Vol] 8.2 mg/dL Low 8.5-10.6 [facility] Chloride [Moles/Vol] 106 mmol/L Normal 98-[address] [facility] CO2 [Moles/Vol] 29 mmol/L Normal 21-32 [facility] Creatinine [Mass/Vol] 1.07 mg/dL High 0.55-1.[address] [facility] Glucose [Mass/Vol] 94 mg/dL Normal 70-99 [facility] Potassium [Moles/Vol] 4.3 mmol/L Normal 3.5-5.1 Arin [facility] Sodium [Moles/Vol] 141 mmol/L Normal 136-145 [facility] Urea nitrogen (BldV) [Mass/Vol] 18 mg/dL Normal 7.0-18.0 [facility] Urea nitrogen/Creatinine [Mass ratio] 17 mg/mg Normal [facility] CBC W Auto Differential pane l (Bld)on 11-21-2020 Basophils (Bld) [#/Vol] 0.0 thou/mcL Normal 0.0-0.2 [facility] Basophils/100 WBC (Bld) 0.7 % Normal 0-3 [facility] Differential cell count method Nom (Bld) AUTOMATED DIFFERENTIAL Normal [facility] Eosinophils (Bld) [#/Vol] 0.1 thou/mcL Normal 0.0-0.4 [facility] Eosinophils/100 WBC (Bld) 1.6 % Normal 0-7 [facility] Lymphocytes (Bld) [#/Vol] 1.3 thou/mcL Normal 0.7-4.5 [facility] Lymphocytes/100 WBC (Bld) 18.7 % Normal 14-46 [facility] Monocytes (Bld) [#/Vol] 0.8 thou/mcL Normal 0.1-1.0 [facility] Monocytes/100 WBC (Bld) 12.1 % Normal 4-13 [facility] Neutrophils (Bld) [#/Vol] 4.6 thou/mcL Normal 1.5-7.8 [facility] Neutrophils/100 WBC (Bld) 66.9 % Normal 40-74 [facility] Erythrocyte distribution width (RBC) [Entitic vol] 14.6 % Normal 11.7-15.0 [facility] Hematocrit (Bld) [Volume fraction] 25.9 % Low 34.0-50.0 [facility] Hemoglobin (Bld) [Mass/Vol] 8.5 g/dL Low 11.5-17.0 [facility] MCH (RBC) [Entitic mass] 29.8 Picograms Normal 27.0-34.0 [facility] MCHC (RBC) [Mass/Vol] 32.8 g/dL Normal 32.0-36.0 Arin [facility] MCV (RBC) [Entitic vol] 90.9 fL Normal 80-98 [facility] Platelet mean volume (Bld) [Entitic vol] 9.9 fL Normal 7.5-11.2 [facility] Platelets (Bld) [#/Vol] 181 thou/mcL Normal 140-415 [facility] RBC (Bld) [#/Vol] 2.85 x(10)6/mcL Low 3.80-5.60 Mo [facility] WBC (Bld) [#/Vol] 7.0 thou/mcL Normal 4.0-10.5 [facility] PT Coag (PPP) [Time]on 11-21 INR Coag (Bld) [Relative time] 1.4 {INR} Normal [facility] Comment on above: Result Comment: NOEMÍ GOMEZ THE INDUCTION PHASE OF ORAL ANTICOAGULATION, THE INR MAY NOT REFLECT THE ANTICOAGULANT STATUS OF THE PATIENT. THERAPEUTIC RANGES FOR INR'S ARE: MOST CLINICAL SITUATIONS: INR 2.0-3.0 MECHANICAL PROSTHETIC VALVES: INR 2.5-3.5 CRITICAL: INR 5.0 Prothrombin Timeon PT Coag (PPP) [Time] 17.1 s High 11.9-14.6 Moun [facility] Basic metabolic 2000 panelon 11-20-2020 Calcium [Mass/Vol] 8.3 mg/dL Low 8.5-10.6 [facility] Chloride [Moles/Vol] 104 mmol/L Normal 98-107 Moun [facility] CO2 [Moles/Vol] 24 mmol/L Normal 21-32 [facility] Creatinine [Mass/Vol] 0.97 mg/dL Normal 0.55-1.[address] [facility] Glucose [Mass/Vol] 126 mg/dL High 70-99 [facility] Potassium [Moles/Vol] 4.4 mmol/L Normal 3.5-5.[address] [facility] Sodium [Moles/Vol] 139 mmol/L Normal 136-145 [facility] Urea nitrogen (BldV) [Mass/Vol] 18 mg/dL Normal 7.0-18.0 [facility] Urea nitrogen/Creatinine [Mass ratio] 19 mg/mg Normal [facility] CBC W Auto Differential pane l (Bld)on 11-20-2020 Basophils (Bld) [#/Vol] 0.0 thou/mcL Normal 0.0-0.2 [facility] Basophils/100 WBC (Bld) 0.2 % Normal 0-3 [facility] Differential cell count method Nom (Bld) AUTOMATED DIFFERENTIAL Normal [facility] Eosinophils (Bld) [#/Vol] 0.0 thou/mcL Normal 0.0-0.4 [facility] Eosinophils/100 WBC (Bld) 0.0 % Normal 0-7 [facility] Lymphocytes (Bld) [#/Vol] 0.9 thou/mcL Normal 0.7-4.5 [facility] Lymphocytes/100 WBC (Bld) 9.1 % Low 14-46 [facility] Monocytes (Bld) [#/Vol] 0.9 thou/mcL Normal 0.1-1.0 [facility] Monocytes/100 WBC (Bld) 9.2 % Normal 4-13 [facility] Neutrophils (Bld) [#/Vol] 7.8 thou/mcL Normal 1.5-7.8 [facility] Neutrophils/100 WBC (Bld) 81.5 % High 40-74 [facility] Erythrocyte distribution width (RBC) [Entitic vol] 14.7 % Normal 11.7-15.0 [facility] Hematocrit (Bld) [Volume fraction] 30.7 % Low 34.0-50.0 [facility] Hemoglobin (Bld) [Mass/Vol] 10.2 g/dL Low 11.5-17.0 [facility] MCH (RBC) [Entitic mass] 30.3 Picograms Normal 27.0-34.0 [facility] MCHC (RBC) [Mass/Vol] 33.3 g/dL Normal 32.0-36.[address] [facility] MCV (RBC) [Entitic vol] 90.9 fL Normal 80-98 [facility] Platelet mean volume (Bld) [Entitic vol] 11.1 fL Normal 7.5-11.2 [facility] Platelets (Bld) [#/Vol] 246 thou/mcL Normal 140-415 [facility] RBC (Bld) [#/Vol] 3.38 x(10)6/mcL Low 3.80-5.60 Mo [facility] WBC (Bld) [#/Vol] 9.5 thou/mcL Normal 4.0-10.5 [facility] PT Coag (PPP) [Time]on 11-20 INR Coag (Bld) [Relative time] 1.0 {INR} Normal [facility] Comment on above: Result Comment: DHARMESHI NG THE INDUCTION PHASE OF ORAL ANTICOAGULATION, THE INR MAY NOT REFLECT THE ANTICOAGULANT STATUS OF THE PATIENT. THERAPEUTIC RANGES FOR INR'S ARE: MOST CLINICAL SITUATIONS: INR 2.0-3.0 MECHANICAL PROSTHETIC VALVES: INR 2.5-3.5 CRITICAL: INR 5.0 Prothrombin Timeon PT Coag (PPP) [Time] 13.6 s Normal 11.9-14.6 [facility] Anesthesia Recordon 11-20-19 Anesthesia Record Patient: TRINITY GODINEZ MRN: ([id number] Age: 65 years Sex: Female : 1955 Associated Diagnoses: None Author: Yoselin VEGA , Angel Carrillo Procedure Time Out [place] Protocol: patient identity verified, site verified, side verified, procedure to be done verified, patient position verified. REGIONAL ANESTHESIA PROCEDURE Procedure date and begin time: Peripheral nerve block. Procedure date and end time: See nursing notes. Performed by: Angel Wyatt MD Assisted by: no print shop assistant. Informed consent: signed by patient. Technique: [...] Diagnosis Preoperative Diagnosis: Postoperative Diagnosis: . Normal [facility] Culture Aerobicon 11-19-2020 Bacteria identified Aer cx Nom (Unsp spec) [facility][NOTE 3] Microbiology PROCEDURE: Culture Aerobic SOURCE: Tissue BODY [...] NO EPITHELIALS SEEN, NO ORGANISMS SEEN Normal [facility] Comment on above: Performed By: #### 6 34-6 ####[address] Bacteria identified Aer cx Nom (Unsp spec) [facility][NOTE 3] Microbiology PROCEDURE: Culture Aerobic SOURCE: Tissue BODY [...] POLYS RARE EPIS NO ORGANISMS SEEN Normal [facility] Comment on above: Performed By: #### 6 34-6 ####[address] Bacteria identified Aer cx Nom (Unsp spec) [facility][NOTE 3] Microbiology PROCEDURE: Culture Aerobic SOURCE: Tissue BODY [...] POLYS No Epithelials NO ORGANISMS SEEN Normal [facility] Comment on above: Performed By: #### 6 34-6 ####[address] Bacteria identified Aer cx Nom (Unsp spec) [facility][NOTE 3] Microbiology PROCEDURE: Culture Aerobic SOURCE: Tissue BODY [...] POLYS No Epithelials NO ORGANISMS SEEN Normal [facility] Comment on above: Performed By: #### 6 34-6 ####[place] Culture Anaerobicon 11-20-19 Bacteria identified Anaer cx Nom (Unsp spec) [facility][NOTE 3] Microbiology PROCEDURE: Culture Anaerobic SOURCE: Tissue BODY [...] 20:36 EDT CONTRIBUTOR_SYSTEM, CO_PN CULTURE IN PROGRESS [facility] Comment on above: Performed By: #### 6 35-3 ####[address] Bacteria identified Anaer cx Nom (Unsp spec) [facility][NOTE 3] Microbiology PROCEDURE: Culture Anaerobic SOURCE: Tissue BODY [...] 20:36 EDT CONTRIBUTOR_SYSTEM, CO_PN CULTURE IN PROGRESS [facility] Comment on above: Performed By: #### 6 35-3 ####[place] [address] [place], [place] Bacteria identified Anaer cx Nom (Unsp spec) [facility][NOTE 3] Microbiology PROCEDURE: Culture Anaerobic SOURCE: Tissue BODY [...] EDT CONTRIBUTOR_SYSTEM, CO_PN CULTURE IN PROGRESS Normal [facility] Comment on above: Performed By: #### 6 35-3 ####[address] Bacteria identified Anaer cx Nom (Unsp spec) [facility][NOTE 3] Microbiology PROCEDURE: Culture Anaerobic SOURCE: Tissue BODY [...] EDT CONTRIBUTOR_SYSTEM, CO_PN CULTURE IN PROGRESS Normal [facility] Comment on above: Performed By: #### 6 35-3 ####[place] [address] [place], [place] Culture Funguson 11-19-2020 Fungus identified Cx Nom (Unsp spec) [facility][NOTE 3] Microbiology PROCEDURE: Culture Fungus SOURCE: Tissue BODY [...] WILL BE HELD FOR 1-4 WEEKS Normal [facility] Comment on above: Performed By: #### 5 80-1 ####[address] Fungus identified Cx Nom (Unsp spec) [facility][NOTE 3] Microbiology PROCEDURE: Culture Fungus SOURCE: Tissue BODY [...] WILL BE HELD FOR 1-4 WEEKS Normal [facility] Comment on above: Performed By: #### 5 80-1 ####[facility] [address] [place], [place] Fungus identified Cx Nom (Unsp spec) [facility][NOTE 3] Microbiology PROCEDURE: Culture Fungus SOURCE: Tissue BODY [...] WILL BE HELD FOR 1-4 WEEKS Normal [facility] Comment on above: Performed By: #### 5 80-1 ####[address] Fungus identified Cx Nom (Unsp spec) [facility][NOTE 3] Microbiology PROCEDURE: Culture Fungus SOURCE: Tissue BODY [...] WILL BE HELD FOR 1-4 WEEKS Normal [facility] Comment on above: Performed By: #### 5 [id number] ####[address] PACU I Nursingon 11-19-2020 PACU I Nursing CO NA PACU I Nursing Record Summary Primary Physician: Calos Smith Jr, MD Finalized Date/Time: 11/19/20 18:19:26 Pt. Name: TRINITY GODINEZ/Sex: 1955 Female Med Rec #: [id number] Physician: Calos Smith Jr, MD Financial #: [id number] Pt. Type: I Room/Bed: / Admit/Disch: 11/19/20 [...] By: Teresita Franco RN 11/19/20 18:19 Normal [facility] PreOp Nursingon 11-19-2020 PreOp Nursing CO NA PreOp Nursing Record Summary Primary Physician: Calos Smith Jr, MD Finalized Date/Time: 11/19/20 13:09:57 Pt. Name: TRINITY GODINEZ/Sex: 1955 Female Med Rec #: [id number] Physician: Calos Smith Jr, MD Financial #: [id number] Pt. Type: I Room/Bed: / Admit/Disch: 11/19/20 [...] By: Cortes Mcclain RN 11/19/20 13:09 Normal [facility] Surgical Pathology Final Rep tom 11-19-2020 Pathology study TRINITY GODINEZ [id number] [id number] F [id number] / [id number] ORDERING PHYSICIAN: CALOS SMITH [...] cut surface is rogers-pink, soft and homogeneous. [employer] sections are submitted in block (A1). (RS/1C/MS/RT) Gross examination was performed at [facility]. AJB:ASPEN 11/22/20 By: LICHA ZEPEDA M.D. (Electronic Signature) MICROSCOPIC: The technical component was performed at [facility], [address] [place] [address]. Microscopic examination was performed. Case resulted at [facility]. 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 NOTE: There is no significant perivascular lymphocytic inflammation. JH2:JH2:JH208 END OF REPORT END OF REPORT Normal [facility] XR Knee 1-2 Views LTon 11-19 XR [...] is present. Anterior skin elvira are noted. [facility] thanks you for the opportunity to care for your patient. Workstation ID: [id number] - [id number] FINAL REPORT Dictated By: Abdias Morejon MD 11/19/2020 16:54 Assigned Physician: Abdias Morejon MD Reviewed and Electronically Signed By: Abdias Morejon MD 11/19/2020 16:56 Transcribed by: STEW 11/19/2020 16:54 Technologist: BASIL Amador [facility] PreOp Nursingon 11-18-2020 PreOp Nursing CO NA PreOp Nursing Record Summary Primary Physician: Calos Smith Jr, MD Finalized Date/Time: 11/18/20 15:01:45 Pt. Name: TRINITY GODINEZ/Sex: 1955 Female Med Rec #: [id number] Physician: Calos Smith Jr, MD Financial #: [id number] Pt. Type: I Room/Bed: / Admit/Disch: 11/17/20 [...] By: Deisi Wu RN 11/18/20 15:01 Normal [facility] PT Coag (PPP) [Time]on 11-17 INR Coag (Bld) [Relative time] 1.1 {INR} Normal [facility] Comment on above: Result Comment: DURI NG THE INDUCTION PHASE OF ORAL ANTICOAGULATION, THE INR MAY NOT REFLECT THE ANTICOAGULANT STATUS OF THE PATIENT. THERAPEUTIC RANGES FOR INR'S ARE: MOST CLINICAL SITUATIONS: INR 2.0-3.0 MECHANICAL PROSTHETIC VALVES: INR 2.5-3.5 CRITICAL: INR 5.0 Prothrombin Timeon PT Coag (PPP) [Time] 14.1 s Normal 11.9-14.6 Moun [facility] aPTT Coag (Bld) [Time]on aPTT Coag (PPP) [Time] 25.4 s Normal 23.2-34.6 [facility] Basic metabolic 2000 panelon 11-15-2020 Calcium [Mass/Vol] 9.7 mg/dL Normal 8.5-10.6 [facility] Chloride [Moles/Vol] 100 mmol/L Normal 98-107 Moun [facility] CO2 [Moles/Vol] 26 mmol/L Normal 21-32 [facility] Creatinine [Mass/Vol] 1.25 mg/dL High 0.55-1.02 Arin [facility] Glucose [Mass/Vol] 79 mg/dL Normal 70-99 [facility] Potassium [Moles/Vol] 4.0 mmol/L Normal 3.5-5.1 Arin [facility] Sodium [Moles/Vol] 137 mmol/L Normal 136-145 [facility] Urea nitrogen (BldV) [Mass/Vol] 31 mg/dL High 7.0-18.0 [facility] Urea nitrogen/Creatinine [Mass ratio] 25 mg/mg Normal [facility] Blood type and Indirect anti body screen panel (Bld)on 11-15-2020 Blood group antibody screen Ql Negative Normal NEG [facility] Rh Nom (Bld) Positive Normal [facility] C-Reactive Proteinon 021 CRP [Mass/Vol] 5.1 mg/L Normal 0.0-9.0 [facility] CBC W Auto Differential pane l (Bld)on 11-15-2020 Basophils (Bld) [#/Vol] 0.1 thou/mcL Normal 0.0-0.2 [facility] Basophils/100 WBC (Bld) 1.3 % Normal 0-3 [facility] Differential cell count method Nom (Bld) AUTOMATED DIFFERENTIAL Normal [facility] Eosinophils (Bld) [#/Vol] 0.2 thou/mcL Normal 0.0-0.4 [facility] Eosinophils/100 WBC (Bld) 2.7 % Normal 0-7 [facility] Erythrocyte distribution width (RBC) [Entitic vol] 15.2 % High 11.7-15.0 [facility] Hematocrit (Bld) [Volume fraction] 38.1 % Normal 34.0-50.0 [facility] Hemoglobin (Bld) [Mass/Vol] 12.5 g/dL Normal 11.5-17.0 [facility] Lymphocytes (Bld) [#/Vol] 1.8 thou/mcL Normal 0.7-4.5 [facility] Lymphocytes/100 WBC (Bld) 21.9 % Normal 14-46 [facility] MCH (RBC) [Entitic mass] 30.0 Picograms Normal 27.0-34.0 [facility] MCHC (RBC) [Mass/Vol] 32.9 g/dL Normal 32.0-36.0 Arin [facility] MCV (RBC) [Entitic vol] 91.3 fL Normal 80-98 [facility] Monocytes (Bld) [#/Vol] 0.5 thou/mcL Normal 0.1-1.0 [facility] Monocytes/100 WBC (Bld) 6.6 % Normal 4-13 [facility] Neutrophils (Bld) [#/Vol] 5.5 thou/mcL Normal 1.5-7.8 [facility] Neutrophils/100 WBC (Bld) 67.5 % Normal 40-74 [facility] Platelet mean volume (Bld) [Entitic vol] 9.9 fL Normal 7.5-11.2 [facility] Platelets (Bld) [#/Vol] 314 thou/mcL Normal 140-415 [facility] RBC (Bld) [#/Vol] 4.17 x(10)6/mcL Normal 3.80-5.60 Mo [facility] WBC (Bld) [#/Vol] 8.1 thou/mcL Normal 4.0-10.5 [facility] PT Coag (PPP) [Time]on 11-15 INR Coag (Bld) [Relative time] 1.5 {INR} Normal [facility] Comment on above: Result Comment: NOEMÍ JASON THE INDUCTION PHASE OF ORAL ANTICOAGULATION, THE INR MAY NOT REFLECT THE ANTICOAGULANT STATUS OF THE PATIENT. THERAPEUTIC RANGES FOR INR'S ARE: MOST CLINICAL SITUATIONS: INR 2.0-3.0 MECHANICAL PROSTHETIC VALVES: INR 2.5-3.5 CRITICAL: INR 5.0 Prothrombin Timeon PT Coag (PPP) [Time] 17.7 s High 11.9-14.6 [facility] Sedimentation Rate rbcon ESR (Bld) [Velocity] 52 mm/h [facility] 0-[facility] Coag (Bld) [Time]on aPTT Coag (PPP) [Time] 27.8 s Normal 23.2-34.6 [facility] Consultation Noteon 08-24-19 Consultation Note [id number]#1. 00CD:127 Normal [facility] Operative Reporton Operative Report [id number]#1 .00CD:127 Normal [facility] Pathology Noteon 08-23-2020 Pathology Note [id number] .00CD:127 Normal [facility] Consultation Noteon 08-20-19 Consultation Note [id number] .00CD:127 Normal [facility] Facesheeton 08-19-2020 Facesheet [id number] .00CD:127 Normal [facility] Vital Signs Date Time Vital Sign Value Performing Clinician Taryn travis 04-22-2022 11:44-0500 Body temperature 99.1 [degF] Calos Smith MD Work Phone: [facility] 04-22-2022 11:44-0500 Diastolic blood pressure 62 mm[Hg] Calos Smith MD Work Phone: [employer] 04-22-2022 11:44-0500 Heart rate 90 /min Calos Smith MD Work Phone: [employer] 04-22-2022 11:44-0500 Respiratory rate 12 /min Calos Smith MD Work Phone: [employer] 04-22-2022 11:44-0500 SaO2% (BldA) [Mass fraction] 92 % Calos Smith MD Work Phone: [employer] 04-22-2022 11:44-0500 Systolic blood pressure 109 mm[Hg] Calos Smith MD Work Phone: [employer] 04-20-2022 12:25-0500 Body height 172.7 cm Calos Smith MD Work Phone: [employer] 04-20-2022 12:25-0500 Body mass index (BMI) [Ratio] 27.12 kg/m2 Calos Smith MD Work Phone: [employer] 04-20-2022 12:25-0500 Body weight 80.9 kg Calos Smith MD Work Phone: [employer] 01-06-2022 10:05-0400 Diastolic blood pressure 63 mm[Hg] Calos Smith MD Work Phone: [employer] 01-06-2022 10:05-0400 Heart rate 84 /min Calos Smith MD Work Phone: [employer] 01-06-2022 10:05-0400 Systolic blood pressure 111 mm[Hg] Calos Smith MD Work Phone: [employer] 01-06-2022 07:55-0400 SaO2% (BldA) [Mass fraction] 96 % Calos Smith MD Work Phone: [employer] 01-06-2022 07:52-0400 Body temperature 97 [degF] Calos Smith MD Work Phone: [employer] 01-06-2022 04:28-0400 Respiratory rate 12 /min Calos Smith MD Work Phone: [employer] 01-03-2022 07:10-0400 Body height 172.7 cm Calos Smith MD Work Phone: [employer] 01-03-2022 07:10-0400 Body mass index (BMI) [Ratio] 27.05 kg/m2 Calos Smith MD Work Phone: [employer] 01-03-2022 07:10-0400 Body weight 80.7 kg Calos Smith MD Work Phone: [employer] 01-08-2021 09:00-0400 SaO2% (BldA) [Mass fraction] 93 % Calos Smith MD Work Phone: [employer] 01-08-2021 08:12-0400 Body temperature 97.2 [degF] Calos Smith MD Work Phone: [employer] 01-08-2021 08:12-0400 Diastolic blood pressure 83 mm[Hg] Calos mSith MD Work Phone: [employer] 01-08-2021 08:12-0400 Heart rate 76 /min Calos Smith MD Work Phone: [employer] 01-08-2021 08:12-0400 Respiratory rate 12 /min Calos Smith MD Work Phone: [employer] 01-08-2021 08:12-0400 Systolic blood pressure 125 mm[Hg] Calos Smith MD Work Phone: [employer] 01-06-2021 13:37-0400 Body height 175.3 cm Calos Smith MD Work Phone: [employer] Comment on above: Pt reported 01-06-2021 13:370400 Body mass index (BMI) [Ratio] 30.41 kg/m2 Calos Smith MD Work Phone: [facility] 01-06-2021 13:370409 Body weight 93.4 kg Calos Smith MD Work Phone: [facility] Comment on above: Actual Encounters Encounter Date Encounter Type Care Provider Facility Start: 09-13-2024 End: 09-13-2024 ambulatory Kimani Reyes Facility:[facility] Start: 02-19-2023 ambulatory [facility] Start: 08-26-2022 End: 08-30-[address] LEVI SHINE . Facility:[facility] Start: 08-25-[address] LEVI SHINE . Facili ty:[facility] Start: 08-23-2022 End: 08-23-2022 ambulatory JACKY HOWELL Facility: Start: 08-22-[address] LEVI SHINE . Facili ty:[facility] Start: 08-01-2022 End: 08-02-[address] LEVI SHINE . Facility:[facility] Start: 05-22-2022 End: 05-23-[address] LEVI SHINE . Facility: Start: 05-04-2022 ambulatory BRITTANY WOOD [facility] Start: 05-03-2022 ambulatory BRITTANY WOOD [facility] Start: 05-02-2022 ambulatory LEVI SHINE [facility] Start: 05-01-2022 ambulatory LVEI SHINE [facility] Start: 04-30-2022 ambulatory BRITTANY NINA [facility] Start: 04-29-2022 ambulatory [facility] Start: 04-29-2022 Encounter for genera l adult medical examination without abnormal findings [facility] Start: 04-28-2022 ambulatory LEVI DANGMarian [facility] Start: 04-27-2022 ambulatory LEVI RL [facility] Start: 04-26-2022 ambulatory LEVI RL [facility] Start: 04-25-2022 ambulatory LEVI RL [facility] Start: 04-24-2022 ambulatory BRITTANY WOOD [facility] Start: 04-23-2022 ambulatory BRITTANY WOOD [facility] Start: 04-20-2022 End: 04-22-2022 Evaluation and management of inpatient LEVI SHINE [facility] Start: 04-20-2022 End: 04-22-2022 Evaluation and management of inpatient Calos Smith MD Work Phone: [facility] Comment on above: 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 Facility:[facility] Start: 02-14-[address] LEVI SHINE . Facili ty:[facility] Start: 01-31-2022 End: 03-01-2022 ambulatory SHAIKH Raheem FOWLER Facility:[facility] Start: 01-05-2022 Encounter for preprocedural laboratory examination DR LEVI SHINE . [facility] Start: 01-03-2022 End: 01-06-2022 Evaluation and management of inpatient Calos Smith MD Work Phone: [facility] Start: 01-03-2022 End: 01-06-2022 Subsequent hospital visit by physician Calos Smith MD Work Phone: [facility] Start: 01-02-2022 End: 01-03-[address] LEVI SHINE . Facility:[facility] Start: 01-02-2022 End: 01-03-2022 Encounter for preprocedural laboratory examination DR LEVI SHINE . Facility:[facility] Start: 12-31-2021 ambulatory SHAIKH Raheem FOWLER Facilit y:[facility] Start: 12-12-2021 End: 12-14-[address] LEVI SHINE . Facility:[facility] Start: 10-21-2021 End: 10-22-[address] LEVI SHINE . Facility:[facility] Start: 01-11-2021 ambulatory CALOS SMITH JR. Fac ility:[facility] Start: 01-03-2021 End: 01-08-2021 Evaluation and management of inpatient Calos Smith MD Work Phone: [facility] Start: 05-18-2020 End: 06-17-2020 ambulatory KARAN SULLIVAN Facility:[facility] Start: 05-12-2020 End: 05-27-2020 ambulatory KARAN SULLIVAN Facility:[facility] Procedures Date Procedure Procedure Detail [...] above: Performed By: #### 3 [id number] #### [facility] [address] [place] [address] Start: 01-05-2022 Prothrombin time Chong Hsieh MD [...] Tdap) DTaP,Tdap,and Td Vaccines (2 - Tdap) [facility] Start: 04-22-2023 Hypertension/CHF/CAD Annual BMP Blood Test Hypertension/CHF/CAD Annual BMP Blood Test [facility] Start: 01-05-2023 Hypertension/CHF/CAD Annual BMP Blood Test Hypertension/CHF/CAD Annual BMP [facility] Start: 12-01-2021 Influenza vaccination Influenza Vacc ine (#1) [facility] Start: 08-19-2021 COVID-19 Vaccine (4 - Booster for Pfizer series) COVID-19 Vaccine (4 - Booster for Pfizer series) [facility] Start: 01-16-2021 COVID-19 Vaccine (3 - Booster for Pfizer series) COVID-19 Vaccine (3 - Booster for Pfizer series) [facility] Start: 12-20-2020 Hypertension/CHF/CAD Annual BMP Blood Test Hypertension/CHF/CAD Annual BMP Blood Test [facility] Start: 12-15-2020 Adolescent depressio n screening assessment Depression Screening [facility] Start: 12-15-2020 Depression Screening Depression Scre ening [facility] Start: 12-15-2020 Hepatitis C screening Hepatitis C Sc reening [facility] Start: 12-15-2020 HIV screening HIV Screening [facility] Start: 12-15-2020 Lipid panel Cholesterol Sc reening (Lipid Panel) [facility] Start: 12-15-2020 Medicare Annual Well ness Visit Medicare Annual Wellness Visit [facility] Start: 12-15-2020 Screening for malign ant neoplasm of breast Breast Cancer Screening [facility] Start: 12-15-2020 Screening for malign ant neoplasm of colon Colorectal Cancer Screening: Colonoscopy [facility] Start: 12-15-2020 Screening for malign ant neoplasm of lung Lung Cancer Screening (Low Dose CT) [facility] Start: 12-15-2020 Social Influencers o f Health Screening Social Influencers of Health Screening [facility] Start: 12-01-2020 Influenza vaccination Influenza Vacc ine (#1) [facility] Start: 02-01-2016 Pneumococcal Vaccine : Pediatrics (0 to 5 Years) and At-Risk Patients (6 to 64 Years) (2 - PCV) Pneumococcal Vaccine: Pediatrics (0 to 5 Years) and At-Risk Patients (6 to 64 Years) (2 - PCV) [facility] Start: 2007 Zoster Vaccines (1 of 2) Zoster Vacc ngozi (1 of 2) [facility] Start: 1978 Screening for malign ant neoplasm of cervix Cervical Cancer Screening: Pap Smear [facility] Start: 1976 DTaP,Tdap,and Td Vac cines (1 - Tdap) DTaP,Tdap,and Td Vaccines (1 - Tdap) [facility] Start: 1957 Hepatitis B Vaccines (1 of 3 - 3-dose series) Hepatitis B Vaccines (1 of 3 - 3-dose series) [facility] Bacteria identified in Tissue by Culture Culture tissue with gram stain Microbiology Routine 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, initial encounter ([facility]) 04/20/2022 2:13 PM EST [employer] Bacteria identified in Unspecified specimen by Anaerobe culture [facility] Work Phone: Bacteria identified in Unspecified specimen by Sterile body fluid culture Culture body fluid with gram stain Microbiology Routine 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, initial encounter ([facility]) 04/20/2022 2:10 PM EST [employer] End: 01-08-2021 Communication order: Respiratory Communication order: Respiratory Respiratory Care Routine Once for 1 Occurrences starting 01/08/2021 until 01/08/2021 [employer] Comment on above: Once for 1 Occurrenc es starting 01/08/2021 until 01/08/2021 Fungus identified in Skin by Culture [facility] [facility] Incentive spirometry RT Incentiv e spirometry RT Respiratory Care Routine Daily until discontinued starting 01/08/2021 [employer] Comment on above: Daily until disconti nued starting 01/08/2021 Mycobacterium sp identified in Unspecified specimen by Organism specific culture [employer] [facility] End: 01-13-2021 Prothrombin time (PT) Prothrombin time with INR Lab Routine Daily for 6 Days starting 01/08/2021 until 01/13/2021, 1 completed [employer] Work Phone: Comment on above: Daily for 6 Days sta rting 01/08/2021 until 01/13/2021, 1 completed Immunizations Immunization Date Immunization Notes Care Provider [facility] 02-10-2021 influenza virus vacc ine, unspecified formulation Calos Smith MD Work Phone: [employer] 01-03-2020 influenza virus vacc ine, unspecified formulation Calos Smith MD Work Phone: [employer] Payers Date Payer Category Payer Self-pay 2015 Medicare MEDICARE MEDICAR E RAILROAD [id number] 2015-Present [address] [address] [place] [address] Medicare [id number] 2015 Medicare MEDICARE MEDICAR E RAILROAD [id number] 2015-Present [address] [address] [place] [address] Medicare [id number] 1959 Medicare [id number] 1959 Private Health Insurance [id number] 1955 Unknown [id number] 2.16.840.1.120078.3.579.2 .647 1955 Unknown [id number] 2.16.840.1.253373.3.579.2 .647 1955 Unknown [id number] 2.16.840.1.602577.3.579.2 .593 1955 Unknown [id number] 2.16.840.1.346166.3.579.2 .593 1955 Unknown [id number] 2.16.840.1.377155.3.579.2 .593 1957 Unknown [id number] 2.16.840.1.707092.3.579.2 .593 1957 Unknown [id number] 2.16.840.1.753486.3.579.2 .593 1957 Unknown [id number] 2.16.840.1.703270.3.579.2 .593 1957 Unknown [id number] 2.16.840.1.155204.3.579.2 .593 1957 Unknown [id number] 2.16.840.1.718769.3.579.2 .593 1957 Unknown [id number] 2.16.840.1.463075.3.579.2 .593 1957 Unknown [id number] 2.16.840.1.521748.3.579.2 .593 1957 Unknown [id number] 2.16.840.1.964454.3.579.2 .593 1957 Unknown [id number] 2.16.840.1.494117.3.579.2 .593 1957 Unknown [id number] 2.16.840.1.493135.3.579.2 .593 1957 Unknown [id number] 2.16.840.1.555636.3.579.2 .1143 1955 Unknown [id number] 2.16.840.1.804145.3.579.2 .1143 1957 Unknown [id number] 2.16.840.1.671634.3.579.2 .114 1957 Unknown [id number] 2.16.840.1.666153.3.579.2 .1143 1957 Unknown [id number] 2.16.840.1.369976.3.579.2 .114 1957 Unknown [id number] 2.16.840.1.800736.3.579.2 .114 1957 Unknown [id number] 2.16.840.1.876795.3.579.2 .114 1957 Unknown [id number] 2.16.840.1.185468.3.579.2 .114 1957 Unknown [id number] 2.16.840.1.550780.3.579.2 .114 1957 Unknown [id number] 2.16.840.1.543247.3.579.2 .114 1957 Unknown [id number] 2.16.840.1.849841.3.579.2 .114 Unknown [id number] 2.16.840.1.764674.3.579.2 .531 Social History Date Type Detail Facility Tobacco smoking stat [facility] Unknown if ever smoked [facility] Start: 1955 Sex Assigned At Not on file [facility] Start: 12-30-2021 Tobacco smoking stat [facility] Ex-smoker [facility] End: 08-31-2021 History of tobacco use Current smoker [facility] End: 08-31-2021 History of tobacco use Cigarette Smoker [facility] Start: 12-30-2021 Tobacco use and exposure Smokeless t obacco non-user [facility] Start: 01-03-2022 End: 04-20-2022 Alcohol intake Lifetime non-drinker (finding) [facility] Start: 12-24-2021 End: 04-20-2022 Exposure to SARS-CoV-2 (event) Not sure [facility] Medical Equipment Procedure Code Equipment Code Equipment Origin al Text Equipment Identifier Dates Cement Bone Biom et R 1x40 - [facility] - [id number])[id number], [id number] FDA Start: 01-03-2022 Knee Tib Brg Ant Stbl [id number] - [facility] - [id number] 1)NA, [id number] [facility] Start: 01-03-2022 Clinical Notes 11-17-2020 to 04-22-2022 [...] picking her up around 12-12:30. Delroy at [facility] updated pt to arrive around 1. NN spoke with Delroy at [facility]. They can accept the pt today. No HENS needed. Pt will need a covid test [phone] [phone] Delroy will need updated with a transport [...] Clarity 04/20/2022 Hazy Body Fluid Color 04/20/2022 Alexander Body Fluid RBC 04/20/2022 25,000 Body Fluid [...] 04/20/2022 16:06 Post-op Progress Note Subjective Procedure: SC RECONSTR DISLOCATING PATELLA W EXT REALIGNMENT AND/OR MUSCLE ADVMNT/RLS [67358] (Left knee extensor mechanism realignment with lateral retinacular release) SC LATERAL RETINACULAR RELEASE OPEN [95444] Interval History: Shannon Godinez, 66 y.o. female, [...] Plan for discharge to Subacute Rehab Facility ([facility]) when cleared by PT and medically stable [...] or worsening End of Shift Summary: Progressing [facility]- Referral received and chart reviewed. Patient accepted by [facility]. Spoke to patient over phone and answered questions. She has been to our facility in the past. Will follow in in AM. Patient needs a rapid Covid prior to admission. Alicia Jacobo RN [phone] If [facility] can not accept the patient would like the next referral to [facility] Patient not discharging today called Dr Simpson and telephone order received to start the cleocin 300mg Q12hr for 10days as ordered for discharge Updated the patient she needs to choose another facility and she states she has gone to [facility] and would like a referral and sent. Called Admissions and they will review the referral. Spoke to [facility] and they have no beds. . Have tried constantly for 15 minutes to call [facility] and no one answers. Line rings abut 10 times and then cuts off. [phone] Called Admissions at [facility] and she has the referral and will let CM know shortly if they will accept [facility] Physical Therapy Treatment PT Discharge Recommendations: correction facility placement Distance Ambulated (ft): 30 Device: [...] of care until patient is discharged from [facility]. Objective 04/21/22 1401 General Family/Caregiver Present [...] PT Plan Skilled PT PT Discharge Recommendations correction facility placement Goals/Education Encounter Problems Encounter Problems [...] End: 04/23/22 Outcomes Date/Time User Outcome 04/20/22 7429 Meghan Muller RN Progressing Encounter Problems (Resolved) [...] daily for 7 days DC aspirin. Called [facility]. [facility] they have the referral and could be able to answer within an hour if they will be able to accept. Message left for Dr Simpson as patient can not take aspirin for a new anticoag order [facility] and spoke to the front desk officer. . Admissions is not in for another hour or two. She states they do have beds and faxed the referral to [phone] Patient would like [facility]. Referral sent and message left for Admissions Belen Cast [phone] but they are an IPR and since the last IPR said she did not qualify for IPR CM is not anticipating an acceptance. Discussed with the patient and she would liek a referral to [facility] Patient eating lunch. Declines at this time to finish eating. Will attempt again in pm. Patient would like the [facility] in [place], Called the [facility] spoke to Alphonso [phone] She does not have beds until Maybe next week. Updated the patient she would like to try [facility] in [facility] called [phone] spoke to Connie she does not have beds until at less next Sunday Patient would like IPR at [facility] Called Cori [phone] fax [phone] In admissions with referral and she does [...] opiates, and antibiotics to surgical service. Disposition: correction facility. Subjective Patient reports pain is currently [...] Rounded with Dr Luis Simpson and Radha Cortes - PT progess [...] Plan for discharge to Subacute Rehab Facility ([facility]) when cleared by PT and medically stable [...] d/c to SNF when able. [facility] Physical Therapy Evaluation PT Discharge Recommendations: correction facility placement Distance Ambulated (ft): 30 Device: [...] right Complication of internal left knee prosthesis ([facility]) 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, initial encounter ([facility]) Past Medical History: Diagnosis Date Anxiety Arthritis Chronic pain disorder COPD (chronic obstructive pulmonary disease) ([facility]) GERD (gastroesophageal reflux disease) Hypertension Pulmonary embolism ([facility]) 2019 Wears dentures Wears glasses Past Surgical [...] Tolerated Orthoses Applied (T-ROM) Prosthesis/Orthosis Used Left (24/ locked, no flexion) Pain Assessment Pain Assessment [...] of Steps 5 Prior Function Level of [place] Independent with mobility and functional transfers Receives [...] 1-2 times per day PT Discharge Recommendations correction facility placement PT - Evaluation Status Complete [...] 04/23/22 Outcomes Date/Time User Outcome 04/20/221822 Katt Amin, PT Progressing Goal: Pt will perform bed mobility with CGA. Dates: Start: 04/20/22 Expected End: 04/23/22 Outcomes Date/Time User Outcome 04/20/221822 Katt Amin, PT Progressing Goal: Pt will transfer with SBA. Dates: Start: 04/20/22 Expected End: 04/23/22 Outcomes Date/Time User Outcome 04/20/221822 Katt Amin, PT Progressing Goal: Caregiver/patient will demonstrate safety precautions during mobility tasks with CGA Dates: Start: 04/20/22 Expected End: 04/23/22 Outcomes Date/Time User Outcome 04/20/221822 Katt Amin, PT Progressing Goal: Pt will ascend/descend steps [...] what SNF she wants to go to [facility]. Brother will transport. CM will complete assessment tomorrow However Referral to [facility] faxed to [phone] still need P.T. Eval and will need Written Rx's on Rounds for SNF Son notified not to cotton picker the prescriptions Escribed to her pharmacy. Patient has not arrived to the IP floor for CM assessment Will be seen tomorrow Pain rated at 7 but respiratory rate as low as 9 per minute. Vital signs stable. Meets criteria for discharge/transfer from PACU. documented in this encounter [facility] 04-22-2022 Hospital course Narrative Coumadin-At discharge please follow up with your prescribing provider regarding follow up/labs and appointment. Please follow surgeon's discharge instructions and prescription directions. Surgeon' discharge instructions are in patient's folder- FOLLOW SURGEON INSTRUCTION SHEETS Contact Surgeon's office with any questions/concerns [phone] [facility] -PT/OT Eval [...] mg tablet Other (see Additional Instructions)LAST DOSE 04/13 MEDS PER [facility] REC Additional Instructions: Instructions to prepare for [...] prior to your surgery. Check in at bookkeeper receptionist desk [address] [phone]. If Outpatient, these additional instructions apply: An adult must stay with you the whole time you are here and drive you home. An adult must stay with you at home for 24 hours due to Anesthesia. If you have LUPE, you are required to stay 3 hours after your surgery before we can discharge you. documented in this encounter [facility] 04-20-2022 Procedure note Denies need to void. Pad beneath pt dry. [facility] 04-20-2022 Procedure note Denies need to void. 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 PROCEDURE: Left knee arthrotomy, excision of hardware from the patella, lateral retinacular release, proximal realignment of the extensor mechanism. SURGEON: Calos Smith MD COMMUNITY ENGAGEMENT REPRESENTATIVE: Jelani Burgos PA-C. Mr. Burgos was required [...] cleared by general medical consultants, admitted to [facility], evaluated by the anesthesia team. She [...] condition. CALOS SMITH MD TT: 04/20/2022 15:47:00 AL/ROCIO documented in this encounter [facility] 04-20-2022 Consult note Associated Order (s): IP [...] Albarado MD 01/04/2021 11:45 Transcribed by: [facility] 01/04/2021 11:41 Technologist: [facility] ECHOCARDIOGRAM No results found for this or any previous visit. [facility] 04-20-2022 Consult note Associated Order (s): IP [...] any previous visit. documented in this encounter [facility] 04-20-2022 Procedure note All medications administered per Whitley Kelley SN witnessed by myself. [facility] 04-20-[address] Smith notified of patient reporting history of MRSA a couple years ago, has an allergy to Vancomycin and Ancef, currently has Clindamycin ordered. No new orders. [facility] 04-20-2022 History and physical note History and Physical Update ( H&P completed within the previous thirty days ) I personally reviewed the History and Physical, interviewed and examined the patient prior to surgery. No changes have occurred in the patient's condition since the History and Physical was completed. [facility] 04-20-2022 History and physical note History and Physical Update ( H&P completed within the previous thirty days ) I personally reviewed the History and Physical, interviewed and examined the patient prior to surgery. No changes have occurred in the patient's condition since the History and Physical was completed. 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 PROCEDURE: Left knee arthrotomy, excision of hardware from the patella, lateral retinacular release, proximal realignment of the extensor mechanism. SURGEON: Calos Smith MD COMMUNITY ENGAGEMENT REPRESENTATIVE: Jelani Burgos PA-C. Mr. Burgos was required [...] cleared by general medical consultants, admitted to [facility], evaluated by the anesthesia team. She [...] condition. CALOS SMITH MD TT: 04/20/2022 15:47:00 AL/ROCIO Medicine [facility] 01-06-2022 History of Present illness Narrative All discharge criteria for discharge to home met, medically & surgically. BP u to WNL, tolerating up to bathroom w/o dizziness, lighthedeness. Report called to , station 2 questions answered. Notified Metoprolol and imdur held prior to discharge. Verbalized understanding. Plasma Flow activated for transport to [place]. Per brother. Chemical ice packs for comfort promotion. Spoek with patient and her brother will be here between 9and 10am to transport to [facility]. Faxed HENS Rx' surgeon instruction sheets and AVS to [facility] at [phone]. Dischareg folder to nursing for [facility]. Rx's in folder for tramadol Oxycodone valium gabapentin restoril Surgeon instruction sheets AVS Transfer Summary Number for report to RN [phone] station 2 [facility] - PROGRESS [...] Results from last 7 days Lab Units 01/05/2235201/04/223 01/03/22723 SODIUM mmol/L 134* 133* -- POTASSIUM mmol/L 5.1 5.0 -- CHLORIDE mmol/L 103 103 -- CO2 mmol/L 19* 21* -- BUN mg/dL 34* 26* -- CREATININE mg/dL 1.28 1.00 -- POCT GLUCOSE mg/dL -- -- 144* GLUCOSE mg/dL 99 129* -- EGFR mL/min/1.73m2 44* 59* -- Results from last 7 days Lab Units 01/05/2235201/04/22452 CALCIUM mg/dL 9.1 8.9 GLUCOSE 0 Lab Value Date/Time GLUCOSE 99 01/05/2022352 GLUCOSE 129 (H) 01/04/2022452 GLUCOSE 144 (H) 01/03/2022 0724 GLUCOSE 99 [...] 11:45 Transcribed by: STEW 01/04/2021 11:41 Technologist: OCCUPATIONAL HEALTH AND SAFETY OFFICER STRESS TEST No results found for this [...] 3 Days Post-Op: Right total knee arthroplasty 12366 - SC ARTHROPLASTY KNEE CONDYLE&PLATEAU MED/LAT CPTS W/WO PATELLA [...] Post-Op status post Right total knee arthroplasty 78970 - SC ARTHROPLASTY KNEE CONDYLE&PLATEAU MED/LAT CPTS W/WO PATELLA [...] to discharge to an impatient unit or residential facility. [facility] ([facility]) Orthopaedic Surgery Progress Note 2 Days Post-Op: Right total knee arthroplasty 16721 - SC ARTHROPLASTY KNEE CONDYLE&PLATEAU MED/LAT CPTS W/WO PATELLA [...] Post-Op status post Right total knee arthroplasty 08673 - SC ARTHROPLASTY KNEE CONDYLE&PLATEAU MED/LAT CPTS W/WO PATELLA RESURFACING . - WBAT on the operative extremity - home coumadin, continue lovenox bridge, INR yesterday 0.9 for DVT ppx - PT - Follow-up in clinic in 6 weeks - Plan for discharge to Subacute Rehab Facility ([facility]) when cleared by PT and medically stable Spoke to the patient and she called her brother who will be her transport and he wants to leave here by 0900am. Reached out to [employer] to complete Rx's for home meds. Pt sleeping soundly and did not rouse to name of knock. Will attempt again in am. Message left for Admissions Christy at [place] cell ph [phone] and office [phone] Called [facility] and they Supervisor Painting provided Admissions cell of Christy [phone] Called her and she still does not have an answer from the admissions team and D.O.N. she will call when she knows. Physical Therapy Treatment PT Discharge Recommendations: correction facility placement, Inpatient rehab facility placement Distance [...] Subjective Pt agreeable to treatment. Requesting this VENEER CUTTER move her LEs out of the bed. Education and instruction provided. Requesting bathroom urgently. Mobility noted below. At end of treatment pt sitting in chair awaiting lunch. Continue to follow until pt is d/c from [facility]. Vitals/Pain Pain Assessment Pain Assessment: 0-10 [...] PT Plan: Skilled PT PT Discharge Recommendations: correction facility placement, Inpatient rehab facility placement Goals: [...] plan to SNF. Awaiting to hear from [facility] for acceptance. Discussed transportation and her brother can transport. Encouraged IS as patient still needs to wean from oxygen. Message left for Admissions at [facility]. [phone] to see if they can accept. GENERAL [...] last 7 days Lab Units 01/05/22 0353 01/04/223 WBC AUTO K/mcL 12.7* 14.6* HEMOGLOBIN g/dL [...] Results from last 7 days Lab Units 01/05/2235201/04/223 01/03/22 0724 SODIUM mmol/L 134* 133* -- POTASSIUM mmol/L 5.1 5.0 -- CHLORIDE mmol/L 103 103 -- CO2 mmol/L 19* 21* -- BUN mg/dL 34* 26* -- CREATININE mg/dL 1.28 1.00 -- POCT GLUCOSE mg/dL -- -- 144* GLUCOSE mg/dL 99 129* -- EGFR mL/min/1.73m2 44* 59* -- Results from last 7 days Lab Units 01/05/2235201/04/22452 CALCIUM mg/dL 9.1 8.9 GLUCOSE 0 Lab [...] mid left lung, likely atelectasis or scarring. [facility] thanks you for the opportunity to [...] to discharge to an inpatient unit or residential facility. NN met with the pt at bedside. Pt would like a referral sent to [facility]. She will continue to review the list for choices 2 and 3 in the event [place] cannot accept. Referral sent via [employer]ax. 01/04/22 1531 Clinical Encounter Type Visited With Patient Time Spent 20 Minutes Type of Contact Introduction SPIRITUAL CARE ASSESSMENT Spiritual Care Assessment: Pt appropriate and coping peaceful and positive calderon and family are supportive Spiritual Intervention: Active listening Discuss coping style Hospitality provided [place] given Outcome: Pt shared feelings and values expressed gratitude Plan: PC will return at pt/family request. CM received IB call from Cori with [facility]. They do not have bed availability for patient until at least next Sunday. CM will print Medicare SNF list and provide to patient for subsequent choices. Physical Therapy Treatment PT Discharge Recommendations: correction facility placement, Inpatient rehab facility placement Distance [...] completed with mod/max assist. Mobility noted below. Hawkeye pillow placed at right foot to assist in pt right LE positioning as pt position of comfort is with external rotation and knee slightly bent. Education provided. Continue as per PT POC until pt is d/c from [facility]. Vitals/Pain Pain Assessment Pain Assessment: 0-10 [...] PT Plan: Skilled PT PT Discharge Recommendations: correction facility placement, Inpatient rehab facility placement Goals: [...] comments found. Voice message left for Cori [phone] at [facility]. NN inquiring about the status of referral. CM phone number provided for a return call. Physical Therapy Treatment PT Discharge Recommendations: Inpatient rehab facility placement, correction facility placement Distance Ambulated (ft): 30 Device: [...] PT Discharge Recommendations: Inpatient rehab facility placement, correction facility placement Goals: Encounter Problems Encounter Problems [...] 134Lyn Kelley PTA Progressing Goal: Pt will transfer with SBA and FWW Dates: Start: 01/03/22 Expected End: 01/06/22 Outcomes Date/Time User Outcome 01/04/22 134Lyn Kelley PTA Progressing Goal: Pt will demo good understanding of HEP protocol Dates: Start: 01/03/22 Expected End: 01/06/22 Outcomes Date/Time User Outcome 01/04/22 134Lyn Kelley PTA Not Progressing Goal: Caregiver/patient will [...] from last 7 days Lab Units 01/04/223 01/03/2224 SODIUM mmol/L 133* -- POTASSIUM mmol/L 5.0 -- CHLORIDE mmol/L 103 -- CO2 mmol/L 21* -- BUN mg/dL 26* -- CREATININE mg/dL 1.00 -- POCT GLUCOSE mg/dL -- 144* GLUCOSE mg/dL 129* -- EGFR mL/min/1.73m2 59* -- Results from last 7 days Lab Units 01/04/22452 CALCIUM mg/dL 8.9 GLUCOSE 0 Lab Value [...] 1 Day Post-Op: Right total knee arthroplasty 63967 - SC ARTHROPLASTY KNEE CONDYLE&PLATEAU MED/LAT CPTS W/WO PATELLA [...] Post-Op status post Right total knee arthroplasty 46451 - SC ARTHROPLASTY KNEE CONDYLE&PLATEAU MED/LAT CPTS W/WO PATELLA [...] tomorrow to acquire update of needed. # [phone] PT note is in and this CM faxed the referral to the requested IPR for review Physical Therapy Physical Therapy Evaluation PT Discharge Recommendations: correction facility placement Distance Ambulated (ft): 30 Device: [...] bed with dVT pumps on. Pt. Has johnson. PT educated pt. Re [facility]AR[facility]ON DOUGLAS. See below for pts. Status. Pt. Returned to supine with all items in reach. Ice to R knee. Pt. Plans to discharge to [facility] as lives alone. Pt. Has 5 steps charity. Rails to enter home. Continue PT tx. Per POC. Patient Active Problem List Diagnosis Pain management Unilateral primary osteoarthritis, right knee S/P TKR (total knee replacement), right Past Medical History: Diagnosis Date Anxiety Arthritis COPD (chronic obstructive pulmonary disease) (CMS/HCC) Hypertension Pulmonary embolism (CMS/HCC) Wears dentures Wears glasses Past Surgical History: [...] Level of Function: Prior Function Level of [place]: Independent with mobility and functional transfers Receives [...] 1-2 times per day PT Discharge Recommendations: correction facility placement PT - Evaluation Status: Complete PT Goals: Encounter Problems Encounter Problems (Active) Template: Physical Therapy Problem: PT Short Term Goals Dates: Start: 01/03/22 Goal: Pt will ambulate 150 ft. with wheeled walker and SBA Dates: Start: 01/03/22 Expected End: 01/06/22 Outcomes Date/Time User Outcome 01/03/22 1629 Katt Amin, PT Progressing Goal: Pt will perform bed mobility with SBA Dates: Start: 01/03/22 Expected End: 01/06/22 Outcomes Date/Time User Outcome 01/03/22 1629 Katt Amin, PT Progressing Goal: Pt will transfer with SBA and FWW Dates: Start: 01/03/22 Expected End: 01/06/22 Outcomes Date/Time User Outcome 01/03/229 Katt Amin, PT Progressing Goal: Pt will demo [...] transitioning home alone. [facility]. Patient states her brother will plan to provide transportation at time of discharge. CM was able to reach the admissions dept and the facility is an IPR, no swing bed/ TCU unit at this facility. Patient with multiple co morbidities and this CM will fax the referral for review to [phone] for review. Patient was educated a SNF [...] 11:45 Transcribed by: STEW 01/04/2021 11:41 Technologist: OCCUPATIONAL HEALTH AND SAFETY OFFICER STRESS TEST No results found for this or any previous visit. ECHOCARDIOGRAM No results found for this or any previous visit. CATHETERIZATION No results found for this or any previous visit. ELECTROPHYSIOLOGY RESULT No results found for this or any previous visit. VASCULAR RESULT No results found for this or any previous visit. 12/27/21 1531 Referral Data Referral Reason Discharge Planning [facility] Information County of Residence [place] Patient Information Accompanied by/Relationship telephone call Patient arrived from? Home Support System Extended family Referral To Financial Resources Other (Comment) (no needs identified) Community Resources Other (Comment) (no needs identified) Services Requested DME potential needs No Destination/Placement [facility] Rehab Potential Good CM made telephone call to patient preoperatively to complete initial assessment for discharge planning. Home address and PCP reviewed. Home assessment completed. Patient lives alone in a 1 story home, 5 steps/handrail to enter. Bathroom: tub shower, shower chair. DME reviewed, denies need. Plan: discharge to [facility], brother to provide transportation. Covid testing education provided, patient will schedule. All questions/concerns addressed. documented in this encounter [facility] 01-05-2022 Hospital course Narrative Prescriptions for discharge OXYCODONE TRAMADOL RX FOR HOME MEDS FOR CONTINUED CARE VALIUM GABAPENTIN RESTORIL -Follow surgeon's printed post op care instructions -PT/OT Eval for bed mobility, transfers, gait training, ROM, strengthening, modalities prn, venous return exercises and ADL'S -FWW for gait assit -Weight bearing as Tolerated -Please follow up with the coumadin clinic regarding Labs and lovenox bridge. [facility] ASBESTOS HAZARD ABATEMENT WORKER TO HELP MANAGE TO THERAPEUTIC LEVEL -Plasma [...] prior to your surgery. Check in at bookkeeper receptionist desk [address] [place] [address]. Medication instructions per [facility] recc If Outpatient, these additional instructions apply: An adult must stay with you the whole time you are here and drive you home. An adult must stay with you at home for 24 hours due to Anesthesia. If you have LUPE, you are required to stay 3 hours after your surgery before we can discharge you. documented in this encounter [facility] 01-03-2022 Procedure note Family updated per phone. [facility] 01-03-2022 Procedure note Family updated per phone. Trinity Godinez 1955 ? Retention: Exchange Retention Policy (10 years) Expires: Sun01/01/2032 10:37 AM Retention: Exchange Retention Policy (10 years) Expires: Sun01/01/2032 10:37 AM [email or web address] EXTERNAL CAUTION: This email originated from outside the organization. Do not click links or open any attachments unless you recognize the sender and know the content is safe. If you believe this is spam, forward the message to [email or web address]. - [employer] [facility], A Member of [employer] OPERATIVE REPORT PATIENT NAME: Trinity Godinez DATE OF : 1955 [facility]#: [id number] SURGEON: Calos Smith MD, FACS DATE OF SERVICE: 01/03/2022 DATE OF SURGERY: 01/03/2022 PREOPERATIVE DIAGNOSIS: OA right knee (M17.11) POSTOPERATIVE DIAGNOSIS: OA right knee (M17.11) PROCEDURE: Primary Right Total Knee Arthroplasty (77838) Femoral Component: Heidi Biomet Vanguard Cruciate Retaining , Size: 62.5mm Tibial Component: Biomet Fixed I-Beam Stem Tibial Tray 75mm Patella Component: Biomet Series A Standard Patella , 31mm Polyethylene: Vanguard ArCom anterior stabilized 12mm Fixation: Biomet Bone Cement with 1g Vancomycin ATTENDING SURGEON: Calos Smith MD, FACS COMMUNITY ENGAGEMENT REPRESENTATIVE: STEPHAN Diane DO INDICATIONS: Patient is a [...] awake, alert, and stable in good condition. COMMUNITY ENGAGEMENT REPRESENTATIVE/ATTENDING PARTICIPATION: STEPHAN Diane DO assisted with proper [...] None Created & Digitally Signed By: Calos mSith MD, FACS on 01/03/2022 10:28:45 [facility], A Member of [facility] OPERATIVE REPORT PATIENT NAME: Trinity Godinez DATE OF : 1955 CSN#: [id number] SURGEON: Calos Smith MD, FACS DATE OF SERVICE: 01/03/2022 DATE OF SURGERY: 01/03/2022 REF [id number] LOT [id number] Vanguard Knee System 62.5 MM Uncoated knee femur prosthesis, metallic Use By 2031-11-13 () [id number] (17) [id number] (10) [id number] REF [id number] LOT [id number] Biomet Knee System 75 mm Uncoated knee tibia prosthesis, metallic Use By 2031-10-11 () [id number] (17) [id number] (10) [id number] REF [id number] LOT [id number] Vanguard Knee System 31 mm 8 mm Polyethylene patella prosthesis Use By 2026-10-10 () [id number] (17) [id number] (10) [id number] REF [id number] LOT [id number] Vanguard Knee System 12 MM 75 MM Tibial insert Use By 2026-12-22 (01) [phone] [phone] documented in this encounter [facility] 01-03-2022 Procedure note Trinity Godinez 1955 ? Retention: Exchange Retention Policy (10 years) Expires: Sun01/01/2032 10:37 AM Retention: Exchange Retention Policy (10 years) Expires: Sun01/01/2032 10:37 AM [email or web address] EXTERNAL CAUTION: This email originated from outside the organization. Do not click links or open any attachments unless you recognize the sender and know the content is safe. If you believe this is spam, forward the message to [email or web address]. - [employer] [facility], A Member of [facility] OPERATIVE REPORT PATIENT NAME: Trinity Godinez DATE OF : 1955 [facility]#: [id number] SURGEON: Calos Smith MD, FACS DATE OF SERVICE: 01/03/2022 DATE OF SURGERY: 01/03/2022 PREOPERATIVE DIAGNOSIS: OA right knee (M17.11) POSTOPERATIVE DIAGNOSIS: OA right knee (M17.11) PROCEDURE: Primary Right Total Knee Arthroplasty (63569) Femoral Component: Heidi Biomet Vanguard Cruciate Retaining , Size: 62.5mm Tibial Component: Biomet Fixed I-Beam Stem Tibial Tray 75mm Patella Component: Biomet Series A Standard Patella , 31mm Polyethylene: Vanguard ArCom anterior stabilized 12mm Fixation: Biomet Bone Cement with 1g Vancomycin ATTENDING SURGEON: Calos Smith MD, FACS COMMUNITY ENGAGEMENT REPRESENTATIVE: STEPHAN Diane DO INDICATIONS: Patient is a [...] awake, alert, and stable in good condition. COMMUNITY ENGAGEMENT REPRESENTATIVE/ATTENDING PARTICIPATION: STEPHAN Diane DO assisted with proper [...] Calos Smith MD, FACS on 01/03/2022 10:28:45 [facility], A Member of [facility] OPERATIVE REPORT PATIENT NAME: Trinity Godinez DATE OF : 1955 [facility]#: [id number] SURGEON: Calos Smith MD, FACS DATE OF SERVICE: 01/03/2022 DATE OF SURGERY: 01/03/2022 REF [id number] LOT [id number] Vanguard Knee System 62.5 MM Uncoated knee femur prosthesis, metallic Use By 2031-11-13 () [id number] (17) [id number] (10) [id number] REF [id number] LOT [id number] Biomet Knee System 75 mm Uncoated knee tibia prosthesis, metallic Use By 2031-10-11 () [id number] (17) [id number] (10) [id number] REF [id number] LOT [id number] Vanguard Knee System 31 mm 8 mm Polyethylene patella prosthesis Use By 2026-10-10 () [id number] (17) [id number] (10) [id number] REF [id number] LOT [id number] Vanguard Knee System 12 MM 75 MM Tibial insert Use By 2026-12-22 () [id number] (17) [id number] (10 [id number] [facility] 01-03-2022 History and physical note History and Physical Update ( H&P completed within the previous thirty days ) I personally reviewed the History and Physical, interviewed and examined the patient prior to surgery. No changes have occurred in the patient's condition since the History and Physical was completed. [facility] 01-03-2022 History and physical note History and Physical Update ( H&P completed within the previous thirty days ) I personally reviewed the History and Physical, interviewed and examined the patient prior to surgery. No changes have occurred in the patient's condition since the History and Physical was completed. documented in this encounter [facility] 10-23-2021 Note PROCEDURE: XR KNEE R T 4V or > HISTORY: Pain of right knee joint , chronic COMPARISON: XR knee right 06/20/2020 FINDINGS: BONES:Narrowing of all 3 joint spaces, greatest involving the anterior compartment. Irregular sclerosis of the tibial plateau suggesting possible sarv-hz-iggp contact and weightbearing. SOFT TISSUES:No visible soft [...] GARO CASILLAS Date: 2021-10-23 07:[address] [facility] 01-08-2021 Physician Hospital Discharge summary ATTENTION: CUTOVER PATIENT Please Note: This patient was being treated during the EHR conversion from [employer] to [employer] on 01/08/2021 There are two medical records for this patient; one in [facility] and one in [facility]. To see the remainder of the medical record, refer to the [facility] medical record. If you have questions, please contact the Health Information Management Department Patient Name: TRINITY GODINEZ Patient [facility] 01-08-2021 History of Present illness Narrative Faxed orders to [facility] AT [phone] Discharge fodler to nursing for discharge to [facility]. Rx in folder tylenol tramadol oxycodone. Physical Therapy Physical Therapy Treatment Subjective: Pt declined to participate in PT treatment this afternoon, pt stated she would like to rest. Will continue to follow for skilled PT until D/C from [facility]. Problem: Mobility Goal: Patient will ambulate Outcome: [...] from stand Outcome: Progressing Message left for [facility] to see when they can accept the patient Spoke to Delroy at [facility] she does not want the patient to discharge uptil after 1500. Spoke with patient and Granddaughter is planning to be here at that time anyways. Instructed to take the Discharge folder to [facility] and give the entire folder [...] guard Outcomes Date/Time User Outcome 01/08/21 1206 uYdith Reynolds PT Progressing Problem: Transfers Goal: Patient [...] Outcome 01/08/21 1206 Yudith Reynolds, PT Progressing Encounter Problems (Resolved) There are no resolved problems. Education Documentation No documentation found. Education Comments No comments found. Rounded with Kd Bustamante INR 1.5 continue warfarin tolerating percocet no chnges to discharge pain Rx Dr hicks following PICC line and IV antibiotics PT progress reviewed WBAT Knee Immobilizer when up. May discharge to [facility] if OK with Gen [facility] and Dr Hicks. Orthopedic Progress Note Subjective [...] Immobilizer with out-of-bed. Discharge Plan: today to [facility]. LOS: 5 days VALARIE Gan Date: [...] preoperatively noted to be 1.0 on 2020-12-27 -2021 labs Elevated serum creatinine/consistent with recurrent acute [...] will need to follow-up with her surveillance physician/tattooer post discharge Acute Post Hemorrhagic Anemia (D62) [...] from Last 1 Encounters: 01/06/21 30.41 kg/m @hcpoxx35@ No intake/output data recorded. No intake/output data [...] for: [facility]INECX IMAGING documented in this encounter [facility] 01-08-2021 Hospital course Narrative Patient will need an INR checked within 3 days of discharge to ECF for warfarin management to be monitored by ECF physician. Also needs outpatient follow-up with nephrology for monitoring of kidney function. Please follow-up with your tattooer for ongoing surveillance of your kidney function. You should have an INR checked within 3 days of discharge to ECF for management of your warfarin. documented in this encounter [facility] 01-08-2021 Hospital Discharge instructions Marsha Doan RN [...] alcohol or with certain drugs. This includes uhrc-ahw-mqqqggk medicines. Make sure your doctor knows about [...] Where can you learn more? Go to https://www.Clinical Data.net/david chart Enter P175 in the search box to learn more about Learning About Managing Acute Pain at Home. Current as of: July 08, 2020 Content Version: 13.0 [employer]. Care instructions adapted under license by your healthcare professional. If you have questions about a medical condition or this instruction, always ask your healthcare professional. [employer] disclaims any warranty or liability for your [...] Where can you learn more? Go to [email or web address] [email or web address] chart Enter A180 in the search box to learn more about Learning About Opioids and Acute Pain. Current as of: July 08, 2020 Content Version: 13.0 [employer]. Care instructions adapted under license by your healthcare professional. If you have questions about a medical condition or this instruction, always ask your healthcare professional. [employer] disclaims any warranty or liability for your use of this information. The following attachments cannot be sent through Care Everywhere.Incentive Spirometer: General Info (Brazilian)Constipation (Brazilian)DVT (Deep Vein Thrombosis): General Info (Brazilian)Fall Prevention (Brazilian)Opioids: General Info (Brazilian)documented in this encounter [facility] Hospital Progress note Patient: TRINITY GODINEZ MRN: ([id number] Age: 65 years Sex: Female : 1955 Associated Diagnoses: None Author: Autumn VEGA , Rogelio Villalta Assessment Assessment Diagnosis: Primary osteoarthritis of left knee ([id number]-XR M17.12, Working, Medical), Unilateral primary osteoarthritis, left [...] as needed O2 at bedtime at the [facility]. Nocturnal/supine desaturation. History of congestive heart failure. [...] will need to follow-up with her surveillance physician/tattooer post discharge Acute Post Hemorrhagic Anemia (D62) [...] Supervising Physician Comments (more content not included)... [facility] 01-07-2021 Note ID NOW COVID-19_[facility] Progress note Patient: TRINITY GODINEZ MRN: ([id number] Age: 65 years Sex: Female : 1955 [...] Max: 17 (01/06 21:04) Pulse Ox % (01/08 08:31) Min: 88 % (01/06 03:07) Max: 100 % (01/06 08:00) Pain Score (01/07 06:03) Min: 5 (01/06 13:50) Max: 8 (01/07 02:05) BP Last Charted: 138/80 (01/08 08:31) Systolic Min: 135/78 (01/07 04:33) Systolic [...] BP: 138/80 (01/07 08:31) Pulse Ox: 93 (01/08 08:00) Oxygen Delivery: Room air (01/08 08:00) Pain Score: 7 (01/07 06:03) Results Review Labs - Last 36 hours (Max 2 / lab test) CHEMISTRY Sodium 141 (01/07 04:54) 140 (01/06 02:22) Potassium 4.5 (01/08 04:54) 4.8 (01/06 02:22) Chloride 107 (01/08 04:54) 107 (01/06 02:22) CO2 25 (01/08 04:54) 24 (01/06 02:22) Glucose 96 (01/08 04:54) 87 (01/06 02:22) Glucose POCT No result BUN 27 (01/08 04:54) 30 (01/06 02:22) Creatinine 1.87 (01/08 04:54) 1.82 (01/06 02:) Calcium Total 8.8 (01/08 04:54) 8.6 (01/06 02:) Magnesium No result HEMATOLOGY WBC No result RBC No result Hb 9.4 (01/06 02:22) Hematocrit 28.9 (01/06 02:22) Platelets No result MCV No result MCH No result RDW No result MCHC No result Neutrophil Ab No result Monocyte Ab No result Eosinophil Ab No result Basophil Ab No result Lymphocyte Ab No result COAGULATION INR 1.3 (01/08 04:54) 1.1 (01/06 02:22) Prothrombintime (PT) 15.7 Sec (01/08 04:54) 14.2 Sec (01/06 02:22) OTHER LABS Est CrCl IBW (mL/min)-RX 32.18 mL/min (01/0754) 33.06 mL/min (01/06) BUN / Creatinine Ratio 14 (01/0754) 16 (01/06) Gentamicin Trough Level 1.0 (01/07) 3.9 (01/05) Tobramycin Level SEE SEPARATE REPORT ug/mL (01/05) Vancomycin Random <3.5 ug/ml (01/05) WBC Count 7.5 thou/mcL (01/05) Red Blood Cell Count 2.50 X(10)6/mcL (01/05) MCV 85.5 FL (01/05) MCH 27.2 Picograms (01/05) MCHC 31.8 gm/dL (01/05) RDW 16.0 % (01/05) Platelet Count 141 thou/mcL (01/05) MPV 10.5 FL (01/05) Diff Method AUTOMATED DIFFERENTIAL (01/05) Neutrophil Percent 76.1 % (01/05) Lymphocyte Percent 12.7 % (01/05) Monocyte Percent 8.1 % (01/05) Eosinophil Percent 2.2 % (01/05) Basophil Percent 0.9 % (01/05) Neutrophil Absolute 5.7 thou/mcL (01/05) Lymphocyte Absolute 0.9 thou/mcL (01/05) Monocyte Absolute 0.6 thou/mcL (01/05) Eosinophil Absolute 0.2 thou/mcL (01/05) Basophil Absolute 0.1 thou/mcL (01/05) ABO Group A (01/05) A (01/05) Rh Type POSITIVE (01/05) POSITIVE (01/05) Unit # [id number] (01/0556) [id number] (01/05 10:56) List of X-rays performed in last 36 hours No X-rays charted within the last 36 hours I have reviewed the available microbiologic data available at the time (more content not included)... [facility] 01-06-2021 Hospital Progress note Patient: TRINITY GODINEZ MRN: ([id number] Age: 65 years Sex: Female : 1955 Associated Diagnoses: None Author: Rogelio Leyva MD Assessment Assessment Diagnosis: Primary osteoarthritis of left knee ([id number]-JI M17.12, Working, Medical), Unilateral primary osteoarthritis, left [...] as needed O2 at bedtime at the [facility]. Nocturnal/supine desaturation. History of congestive heart failure. [...] will need to follow-up with her surveillance physician/tattooer post discharge Acute Post Hemorrhagic Anemia (D62) -received 2 units of PRBCs for hemoglobin 6.8 on 01/05/2021. Hemoglobin 8.8 this morning adequate response. Tolerated transfusion well. No indication for additional transfusion. We will continue to monitor Hold discharge for today. Suspect would like to watch another 24 hours to make sure her renal function continues to improve. Probable plans for discharge to residential facility in the next 24 hours Supervising Physician Comments Documentation By: Consulting (more content not included)... [facility] 01-05-2021 Hospital Progress note Patient: TRINITY GODINEZ MRN: ([id number] Age: 65 years Sex: Female : 1955 Associated Diagnoses: None Author: Rogelio Leyva MD Assessment Assessment Diagnosis: Primary osteoarthritis of left knee ([id number]-IO M17.12, Working, Medical), Unilateral primary osteoarthritis, left [...] to renal issue (more content not included)... [facility] 01-05-2021 Hospital Progress note Patient: TRINITY GODINEZ MRN: ([id number] Age: 65 years Sex: Female : 1955 [...] 8 (01/05 03:30) BP Last Charted: 156/78 (10/06 07:44) Systolic Min: 102/52 (01/04 04:58) Systolic [...] CHEMISTRY Sodium 141 (01/05 05:22) 138 (01/04 05:07) Potassium 4.7 (01/05 05:22) 5.7 (01/04 05:07) Chloride 108 (01/05 05:22) 104 (01/04 05:07) CO2 27 (01/05 05:22) 26 (01/04 05:07) Glucose 91 (01/05 05:22) 90 (01/04 05:07) Glucose POCT No result BUN 36 (01/05 05:22) 45 (01/04 05:07) Creatinine 2.05 (01/05) 2.32 (01/04 05:) Calcium Total 8.1 (01/05) 8.5 (01/04) Magnesium No result HEMATOLOGY WBC 7.5 (01/05) 7.3 (01/04) RBC 2.50 (01/05) 2.75 (01/04) Hb 6.8 (01/05) 7.5 (01/04) Hematocrit 21.4 (01/05) 23.5 (01/04) Platelets 141 (01/05) 167 (01/04) MCV 85.5 (01/05) 85.5 (01/04 05:) MCH 27.2 (01/05) 27.4 (01/04) RDW 16.0 [...] Neutrophil Percent 76.1 % (01/05) 78.7 % (01/04) Lymphocyte Percent 12.7 % (01/05) 13.3 % (01/04) Monocyte Percent 8.1 % (01/05) 7.5 % (01/04) Eosinophil Percent 2.2 % (01/05) 0.2 % (01/04 05:) Basophil Percent 0.9 % (01/05) 0.3 % (01/04) ABO Group A (01/05) A (01/05) Rh Type POSITIVE (01/05) POSITIVE (01/05) Antibody Screen NEGATIVE (01/03 10:) NEGATIVE (01/03) Unit # [id number] (01/05) [id number] (01/05 06:44) List of X-rays performed in l (more content not included)... [facility] 01-04-2021 Surgery Surgical operation note DICTATED BY: [...] restrictor on the femur. We used a Gwynn size D tibial cone. Fixation is Biomet bone cement mixed with 1 g vancomycin. This is the gentamicin laden Biomet cement mixed with 1 g vancomycin. SURGEON: Calos Smith MD COMMUNITY ENGAGEMENT REPRESENTATIVE: MD Satish Cheng MD assisted with proper [...] cleared by General Medical consultants, admitted to [facility]. At this point, she was seen [...] the tibia. We took our reamers from [employer] and created the cone for this enhanced [...] distally. We ap (more content not included)... [facility] 01-04-2021 Hospital Progress note Patient: TRINITY GODINEZ MRN: [id number] Age: 65 years Sex: Female : 1955 Associated Diagnoses: None Author: Rogelio Leyva MD Assessment Assessment Diagnosis: Primary osteoarthritis of left knee ([id number]-OK M17.12, Working, Medical), Unspecified osteoarthritis, unspecified site [...] as needed O2 at bedtime at the [facility]. Nocturnal/supine desaturation. History of congestive heart failure. [...] Have discussed with nursing staff will leave Alex in today to help monitor urine output.. Hyperkalemia in the setting of acute kidney injury. Potassium 5.7 this morning. On no potassium supplements. Change LR to 0.9 normal saline. Continue to monitor. Follow-up potassium Left adrenal mass. Noted on ultrasound imaging at outside facility due to renal issues 3.9 cm. Patient (more content not included)... [facility] 01-03-2021 History and physical note Patient: TIRNITY GODINEZ MRN: [id number] Age: 65 years Sex: Female : 1955 Associated Diagnoses: None Author: Rogelio Leyva MD Impression Diagnosis Chronic osteoarthritis (CAX77-AQ M19.90, 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 Plan Osteoarthritis Left Knee/left [...] as needed O2 at bedtime at the [facility]. Nocturnal/supine desaturation. GERD - (K21.9) Chronic condition [...] will need to follow-up with her surveillance physician/tattooer post discharge Supervising Physician Comments Documentation By: [...] Dexamethasone 10 mg noted given Discussed with REMOTE CONTROL ASSEMBLER Subjective: Rates pain currently -none currently early PACU No nausea, vomiting No Chest pain, sob Past Medical History CHF HTN COPD O2 prn-while in senior living, her O2 sat drops when laying down [...] Tendencies: Surgical/Procedure Hx Revision of knee arthroplasty ([id number]) on 01/03/2021 at 65 Years. Comments: 01/03/2021 13:17 NEIDA Hinson RN , Zoya Berrios Left knee reimplantation Debridement ([id number]) on 11/19/2020 at 65 Years. Comments: 11/19/2020 [...] CBC,SR,Creat,CRP, Vanco Trough, fax to Dr. Hicks [phone] 3)IV ATB UNTIL reimplant 4)Call Dr. Hicks [...] 25.0 Sec (01/03 10:05) INR 1.1 (01/03 10:) Prothrombintime (PT) 13.7 Sec (01/03 10:) OTHER LABS Rh Type A POSITIVE (01/03 10:) A POSITIVE (01/03 10:) Antibody Screen NEGATIVE (01/03 10:) NEGATIVE (01/03 10:) List of X-rays performed in last 36 hours XR Knee 1-2 Views LT: 01/03/21 11:49:59 See Radiology Report for More Detail Patient: TRINITY GODINEZ MRN: ([id number] Age: 65 years Sex: Female : 1955 Associated Diagnoses: None Author: Alicia Connell RN Impression Diagnosis Chronic osteoarthritis (WYT42-BN M19.90, 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 Plan Supervising Physician Comments Documentation By: Consulting Physician. Chief Complaint Postop Medical Co management History of Present Illness 65 y/o F who is S/P Left TK revision by Dr. Smith who requests post op medical management. Data obtained from pre op H&P. Past Medical History CHF HTN COPD O2 prn-while in senior living, her O2 sat drops when laying down [...] Bleeding Tendencies: Surgical/Procedure Hx Debridement (SNOMED CT [id number]) performed by Luis Quinn MD , Calos on 11/19/2020 at 65 Years. Comments: 11/19/2020 13:02 EDT - Sarahi BERMUDEZ , Cortes Sai RADICAL KNEE JOINT DEBRIDEMENT Bilateral staged hip [...] CBC,SR,Creat,CRP, Vanco Trough, fax to Dr. Hicks [phone] 3)IV ATB UNTIL reimplant 4)Call Dr. Hicks [...] last 36 hours documented in this encounter [facility] 01-03-2021 Mycobacterium sp Org specific cx Ql (Unsp spec) [facility][NOTE 3] Microbiology PROCEDURE: Culture AFB and Stain SOURCE: [...] CONTRIBUTOR_SYSTEM, CO_PN NO ACID FAST BACILLI SEEN [facility] Comment on above: Performed By: #### 5 0941-4 ####[address] 01-03-2021 Mycobacterium sp Org specific cx Ql (Unsp spec) [facility][NOTE 3] Microbiology PROCEDURE: Culture AFB and Stain SOURCE: [...] CONTRIBUTOR_SYSTEM, CO_PN NO ACID FAST BACILLI SEEN [facility] Comment on above: Performed By: #### 5 0941-4 ####[address] 01-03-2021 Mycobacterium sp Org specific cx Ql (Unsp spec) [facility][NOTE 3] Microbiology PROCEDURE: Culture AFB and Stain SOURCE: [...] CONTRIBUTOR_SYSTEM, CO_PN NO ACID FAST BACILLI SEEN [facility] Comment on above: Performed By: #### 5 0941-4 ####[address] 01-03-2021 Mycobacterium sp Org specific cx Ql (Unsp spec) [facility][NOTE 3] Microbiology PROCEDURE: Culture AFB and Stain SOURCE: [...] CONTRIBUTOR_SYSTEM, CO_PN NO ACID FAST BACILLI SEEN [facility] Comment on above: Performed By: #### 5 0941-4 ####[address] [place], [place] 01-03-2021 Bacteria identified Sterile body fluid culture Nom (Unsp spec) [facility][NOTE 3] Microbiology PROCEDURE: Culture Body Fluid + Susceptibility [...] RARE POLYS No Epithelials NO ORGANISMS SEEN [facility] Comment on above: Performed By: #### 6 36-1 ####[address] 01-03-2021 Mycobacterium sp Org specific cx Ql (Unsp spec) [facility][NOTE 3] Microbiology PROCEDURE: Culture AFB and Stain SOURCE: [...] CONTRIBUTOR_SYSTEM, CO_PN NO ACID FAST BACILLI SEEN [facility] Comment on above: Performed By: #### 5 0941-4 ####[facility] [address] [place], [place] 01-03-2021 Anesthesiology Preoperative evaluation and management note Patient: TRINITY GODINEZ MRN: [id number] Age: 65 years Sex: Female : 1955 [...] Creat,CRP, Vanco Trough, fax to Dr. Hicks [phone])IV ATB UNTIL reimplant4)Call Dr. Hicks for F/C/S, N/V/D, rash, [phone])F/U with Dr Hicks in 4-5 weeks COMMENTS: [...] Yes. The p (more content not included)... [facility] 01-03-2021 Hospital Progress note Patient: TRINITY GODINEZ MRN: [facility])-[id number] Age: 65 years Sex: Female : 1955 [...] intraneural local anesthetic injection throughout the procedure. [facility] 01-03-2021 Hospital Progress note Patient: TRINITY GODINEZ MRN: [facility])-[id number] Age: 65 years Sex: Female : 1955 [...] intraneural local anesthetic injection throughout the procedure. [facility] 01-03-2021 Procedure note DICTATED BY: CALOS SMITH [...] 1 g vancomycin. SURGEON: Calos Smith MD COMMUNITY ENGAGEMENT REPRESENTATIVE: MD Satish Cheng MD assisted with proper [...] cleared by General Medical consultants, admitted to [facility]. At this point, she was seen [...] the tibia. We took our reamers from [employer] and created the cone for this enhanced [...] and we did close this over a #10-Canadian drain. We closed the subcutaneous tissues with 2-0 Vicryl and the skin with elvira. Applied a very bulky dressing and took the patient to the Post-Anesthesia Care Unit in satisfactory condition. Roentgenographs showed satisfactory position and alignment of components. TRINITY GODINEZ Birthdate: 1955 D/01/03/2021 16:37:19 T/01/03/2021 20:53:46 VOICE JOB ID: [id number] Ramy Santos thanks you for the opportunity to care for your patient. DID: [id number] documented in this encounter [facility] 11-23-2020 Surgery Surgical operation note DICTATED BY: [...] to proceed and she is admitted to [facility], evaluated by the anesthesiologist, adductor canal [...] cement from t (more content not included)... [facility] 11-22-2020 Hospital Progress note Patient: TRINITY GODINEZ MRN: ([id number] Age: 65 years Sex: Female : 1955 Associated Diagnoses: None Author: Shailesh VEGA , Grabiel Mcaiel Assessment 1. Knee: Status post re-radical debridement. [...] / Creatinine Ratio 17 (11/22 04:50) 17 (11/21 04:30) Vancomycin Random 28.3 ug/ml (11/22 12:59) SARS-CoV-2 NOT DETECTED (11/22 13:30) First test N (11/22 13:30) 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 N (11/22) Symptomatic as defined by N (11/2230) Date of onset NA (11/22 13:30) Hospitalized Y (11/22 13:30) ICU N (11/22 13:) Resides in congregate car N (11/22 13:) N (11/22 13:) Device Identifier ID NOW COVID-19_[employer] EUA (11/22 13:) MPV 10.2 FL [...] Reactions (Selected) Sever (more content not included)... [facility] 11-22-2020 Hospital Progress note Patient: TRINITY GODINEZ MRN: [id number] Age: 65 years Sex: Female : 1955 Associated Diagnoses: None Author: Mario MD , Trey E Assessment Assessment Diagnosis: Osteoarthritis of left knee (RDX70-DH M17.9, 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 Plan A medical consult [...] 2 / l (more content not included)... [facility] 11-22-2020 Note ID NOW COVID-19_Abbo tt Diagnostics TeddyAyi Laile. EUA [facility] 11-22-2020 Physician Hospital Discharge summary CLINICAL SUMMARY Please take this summary document to your follow up appointments. [facility] 11/22/20 14:48 [address] [place]. [address] PATIENT INFORMATION Name: TRINITY GODINEZ Address: [address] [place], [place] [address] Age: 65 Years Phone: [phone] : 1955 12:00 MRN: [id number] Sex: Female Race: White Ethnicity: Not Hispan/Lat Admitted From: Clinic or [facility] Medical Service: Orthopedic Surgery Nurse Unit/Bed: (CO) 2N 0221-01 Admit Date: 11/19/2020 09:38 PCP: Levi Shine MD PHYSICIANS INVOLVED WITH CARE Attending Physicians: Luis Quinn MD , Calos - Orthopaedic Surg Admitting Physician: Luis Quinn MD , Calos - Orthopaedic Surg Primary Care Physician:Levi Shine MD,[facility], - Consults: Shailesh VEGA , Grabiel Maciel - Infectious Disease Andrew VEGA , Jose E - Internal Medicine Mario VEGA , Trey E - Internal Medicine [facility] - Internal Medicine Angeles MD , Kenzie W - Internal Medicine Problems Active Peripherally inserted [...] CBC,SR,Creat,CRP, Vanco Trough, fax to Dr. Hicks [phone] 3)IV ATB UNTIL reimplant 4)Call Dr. Hicks [...] CBC,SR,Creat,CRP, Vanco Trough, fax to Dr. Hicks [phone] 3)IV ATB UNTIL reimplant 4)Call Dr. Hicks for F/C/S, N/V/D, rash, 5)F/U with Dr Hicks in 4-5 weeks. Refills: 0., Call Dr. Hicks if released from your facility before IV therapy completed; Notify Dr. Hicks if Patient is admitted to the hospital. Comment Freetext M (more content not included)... [facility] 11-21-2020 Hospital Progress note Patient: TRINITY GODINEZ MRN: ([id number] Age: 65 years Sex: Female : 1955 Associated Diagnoses: None Author: Shailesh VEGA , Grabiel Maciel Assessment 1. Knee: Status post re-radical debridement. Intraoperative cultures presently pending. 2. History of infection: Trying to obtain culture reports from her Hospital in [place] from last January. 3. Disposition: Anticipate discharge [...] 04:30) RBC 2.85 (11/21 04:30) Hb 8.5 (11/22 03:30) Hematocrit 25.9 (11/22 03:30) Platelets 181 (11/22 03:30) MCV 90.9 (11/21 04:30) MCH 29.8 (11/22 03:30) RDW 14.6 (11/22 03:) MCHC 32.8 (11/22 03:) Neutrophil Ab 4.6 (11/22 03:30) Monocyte Ab 0.8 (11/22 03:30) Eosinophil Ab 0.1 (11/22 03:) Basophil Ab 0.0 (11/21) Lymphocyte Ab 1.3 (11/22 03:) COAGULATION INR 1.4 (11/21 04:30) 1.0 (11/20 04:20) Prothrombintime (PT) 17.1 Sec (11/22 03:) 13.6 Sec (11/20 04:20) OTHER LABS Est CrCl IBW (mL/min)-RX 54.29 mL/min (11/21 04:30) 59.88 mL/min (11/20 04:20) Est CrCl AdjBW (mL/min)-R 66.21 mL/min (11/22 03:30) 73.04 mL/min (11/20 04:20) BUN / Creatinine Ratio 17 (11/22 03:30) 19 (11/20 04:20) MPV 9.9 FL (08/22 04:30) 11.1 FL (11/20 04:20) Diff Method AUTOMATED DIFFERENTIAL (11/22 03:30) AUTOMATED DIFFERENTIAL (11/21 03:20) Neutrophil Percent 66.9 % (11/21 04:30) 81.5 % (11/20 04:20) Lymphocyte Percent 18.7 % (11/21 04:30) 9.1 % (11/20 04:20) Monocyte Percent 12.1 % (11/22 03:30) 9.2 % (11/20 04:20) Eosinophil Percent 1.6 % (11/21 04:30) 0.0 % (11/20 04:20) Basophil Percent 0.7 % (11/22 03:30) 0.2 % (11/20 04:20) List of X-rays performed in last 36 [...] Q4h, PRN: Itching/Pruri (more content not included)... [facility] 11-21-2020 Hospital Progress note Patient: TRINITY GODINEZ MRN: [id number] Age: 65 years Sex: Female : 1955 Associated Diagnoses: None Author: Andrew VEGA , Jose Carrasco Supervising Physician Comments Documentation By: Consulting Physician. Assessment Assessment Diagnosis: Osteoarthritis (QAE51-ZV M19.90, 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 Plan Failed left TKR [...] rounds 11/21. Continue to monitor on the [place] protocol. Obesity: BMI 33. follow per [...] lab test) CHEMISTRY (more content not included)... [facility] 11-20-2020 Hospital Progress note Patient: TRINITY GODINEZ MRN: [id number] Age: 65 years Sex: Female : 1955 Associated Diagnoses: None Author: Andrew VEGA , Jose Carrasco Supervising Physician Comments Documentation By: Consulting Physician. Assessment Assessment Diagnosis: Osteoarthritis (MQZ08-AJ M19.90, 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 Plan Failed left TKR [...] rounds 11/20. Continue to monitor on the [place] protocol. Obesity: BMI 33. follow per [...] 246 (11/20 04:2 (more content not included)... [facility] 11-19-2020 Hospital Progress note Patient: TRINITY GODINEZ MRN: ([id number] Age: 65 years Sex: Female : 1955 Associated Diagnoses: None Author: Kenzie Reynoso MD Assessment Assessment Diagnosis: Osteoarthritis (IPM89-OE M19.90, 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 Plan Failed left TKR [...] 154/59 (11/19 17:00) Pulse Ox: 97 (11/19 17:00) Oxygen Delivery: Nasal cannula (11/19 17:00) O2 Device Flow: 2 L/min Pain Score: [...] 16:24:17 See Radiology Report for More Detail [facility] 11-19-2020 Mycobacterium sp Org specific cx Ql (Unsp spec) [facility][NOTE 3] Microbiology PROCEDURE: Culture AFB and Stain SOURCE: [...] CONTRIBUTOR_SYSTEM, CO_PN NO ACID FAST BACILLI SEEN [facility] Comment on above: Performed By: #### 5 0941-4 ####[address] 11-19-2020 Mycobacterium sp Org specific cx Ql (Unsp spec) [facility][NOTE 3] Microbiology PROCEDURE: Culture AFB and Stain SOURCE: [...] CONTRIBUTOR_SYSTEM, CO_PN NO ACID FAST BACILLI SEEN [facility] Comment on above: Performed By: #### 5 0941-4 ####[address] 11-19-2020 Mycobacterium sp Org specific cx Ql (Unsp spec) [facility][NOTE 3] Microbiology PROCEDURE: Culture AFB and Stain SOURCE: [...] CONTRIBUTOR_SYSTEM, CO_PN NO ACID FAST BACILLI SEEN [facility] Comment on above: Performed By: #### 5 0941-4 ####[address] 11-19-2020 Mycobacterium sp Org specific cx Ql (Unsp spec) [facility][NOTE 3] Microbiology PROCEDURE: Culture AFB and Stain SOURCE: [...] CONTRIBUTOR_SYSTEM, CO_PN NO ACID FAST BACILLI SEEN [facility] Comment on above: Performed By: #### 5 0941-4 ####[facility] [address] [place], [place] 11-19-2020 Anesthesiology Preoperative evaluation and management note Patient: TRINITY GODINEZ MRN: ([facility])-[id number] Age: 65 years Sex: Female : 1955 Associated Diagnoses: None Author: Angel Wyatt MD Preoperative Information Diagnosis No diagnoses charted Planned Procedure Left Knee Radical Debridement Histories Past Medical History: Active Anxiety CHF (congestive heart failure) COPD (chronic obstructive pulmonary disease) Depression Hypertension Osteoarthritis PE (pulmonary thromboembolism) - 2019 Resolved COVID-05/2020 Social History: Type of Tobacco Use: Cigarettes [...] 05:37:52 by Sarah BERMUDEZ , Ange Sloan Exira Medications: ascorbic acid 1,000 mg = 1 [...] mL, 1,000 m (more content not included)... [facility] 11-17-2020 Hospital Progress note Patient: TRINITY GODINEZ MRN: [id number] Age: 65 years Sex: Female : 1955 [...] intrathecal local anesthetic injection throughout the procedure. [facility] 11-17-2020 Anesthesiology Preoperative evaluation and management note Patient: TRINITY GODINEZ MRN: [facility])-[id number] Age: 65 years Sex: Female : 1955 [...] 20 mL/hr, I (more content not included)... [facility] Evaluation note Diagnosis Pain management documented in this encounter [facility] note* Diagnosis Unilateral primary osteoarthritis, right knee S/P TKR (total knee replacement), right documented in this encounter [facility] note* Diagnosis 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, initial encounter ([facility] Primary Complication of internal left knee prosthesis ([facility]) documented in this encounter [facility] Discharge instructions* Attachments The following attachments cannot be sent through Care Everywhere. * Acute Pain Management: General Info (Brazilian) * Opioids: Safe Use (Brazilian) * Fall Prevention (Brazilian) * DVT (Deep Vein Thrombosis): Prevention: General Info (Brazilian) * Constipation (Brazilian) * Incentive Spirometer: General Info (Brazilian) * warfarin (oral) (Brazilian) * Enoxaparin (Lovenox) (Brazilian) [facility] Attachments The following attachments cannot be sent through Care Everywhere. * DVT (Deep Vein Thrombosis): Prevention: General Info (Brazilian) * Incentive Spirometer: General Info (Brazilian) * Fall Prevention (Brazilian) * Opioids: General Info (Brazilian) * Constipation (Brazilian) * warfarin (oral) (Brazilian) * enoxaparin (Brazilian) * Antibiotics: General Info (Brazilian) [facility]* Auth/Cert Specialty Diagnoses / Procedures Referred By Contac t Referred To Contact Diagnoses Unilateral primary osteoarthritis, right knee M17.11 Procedures SC ARTHROPLASTY KNEE CONDYLE&PLATEAU MED/LAT CPTS W/WO PATELLA RESURFACING SC ARTHROPLASTY KNEE CONDYLE&PLATEAU MED/LAT CPTS W/WO PATELLA RESURFACING Right total knee arthroplasty Calos Smith MD [address] [facility] [address] [place] [address] Referral ID Status Reason Start Date Expiration Date Visits Re quested Visits Authorized [id number] 11/08/2021 1 1 [facility] for visit Narrative* Auth/Cert Specialty Diagnoses / Procedures Referred By Contac t Referred To Contact Diagnoses 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, initial encounter ([facility]) [id number] Procedures SC RECONSTR DISLOCATING PATELLA W EXT REALIGNMENT AND/OR MUSCLE ADVMNT/RLS SC LATERAL RETINACULAR RELEASE OPEN Left knee extensor mechanism realignment with lateral retinacular release Calos Smith MD [address] [place] [address] [address] [place] [address] [place] [address] Referral ID Status Reason Start Date Expiration Date Visits Re quested Visits Authorized [id number] 1 1 [employer] Summary Purpose Family History No Family History [...] details. Procedure Findings Note Patient: TRINITY GODINEZ Age: 65 years Sex: [...] concluded. Note Patient: TRINITY GODINEZ MRN : [id number] Age: 65 years Sex: Female : 1955 [...] section and content) DATE CREATED AUTHOR 11/28/2020 Lázaro Bernal [facility] DATE CREATED AUTHOR AUTHOR'S ORGANIZ ATION 01/12/[address] [facility] DATE CREATED AUTHOR AUTHOR'S ORGANIZ ATION 03/04/2021 [facility] DATE CREATED AUTHOR AUTHOR'S ORGANIZ ATION 04/30/2021 [facility] DATE CREATED AUTHOR AUTHOR'S ORGANIZ ATION 09/08/2022 [facility] DATE CREATED AUTHOR AUTHOR'S ORGANIZ ATION 02/21/2023 [facility] DATE CREATED AUTHOR AUTHOR'S ORGANIZ ATION 02/21/2023 [facility] DATE CREATED AUTHOR AUTHOR'S ORGANIZ ATION 09/18/2024 [facility] Ordered Prescriptions (unrec ognized section and content) [...] O2 Sat Above: 90% 0400 (Due)0800 (Due) 1999 (Due) polyethylene glycol (MIRALAX) packet 17 g [...] Pr ovider: Kym Wilson RN - Reason: Other)2099 (Due) sevelamer carbonate (RENVELA) tablet 800 mg [...] Sun01/03/22 at 2100 0835 (Given - Provider: Teersita Hirsch RN)212 (Given - Provider: Richard Hernandez RN) 0843 (Given - Provider: Teresita Hirsch RN)204 (Given - Provider: Richard Hernandez RN) 1017 (Given - Provider: Kym Wilson RN) docusate sodium (COLACE) capsule 100 mg 100 mg, oral, 2 times daily, First dose on Sun01/03/22 at 2100 0834 (Given - Provider: Teresita Hirsch RN)212 (Given - Provider: Richard Hernandez RN) 0845 (Given - Provider: Teresita Hirshc RN)2042 (Given - Provider: Richard Hernandez RN) 1020 [...] at 2100 2120 (Given - Provider: Richard Hernandez, AIDAN) 2041 (Given - Provider: Richard Hernandez RN) [...] 0843 (Given - Provider: Teresita Hirsch RN) 1022 (Not Given - Provider: Kym Wilson RN - Reason: Order parameters not met) magnesium hydroxide (MILK OF MAGNESIA) 400 mg/5 mL suspension 30 mL 30 mL, oral, Daily, First dose on Sun01/04/22 at 0900 0839 (Not Given - Provider: Teresita Hirsch RN - Reason: Patient/Resident/Age nt refused - education provided ) 0842 (Given - Provider: Teresita Hirsch RN) 1022 (Not Given - Provider: Kym Wilson RN [...] Comment: blood pressures low during the day) 0843 (Given - Provider: Teresita Hirsch RN)2041 [...] RN)2041 (Given - Provider: Richard Hernandez RN) 101 (Given - Provider: Kym Wilson RN) senna (SENOKOT) tablet 8.6 mg 8.6 mg (1 tablet), oral, 2 times daily, First dose on Sun01/03/22 at 2100 0834 (Given - Provider: Teresita Hirsch RN)2119 (Given - Provider: Richard Hernandez RN) 0845 (Given - Provider: Teresita Hirsch RN)2041 (Given - Provider: Richard Hernandez RN) 1022 (Not Given - Provider: Kym Wilson RN [...] Hernandez, AIDAN) 0425 (Given - Provider: Richard Hernandez RN) oxyCODONE (ROXICODONE) immediate release tablet 5 [...] oral, 3 times daily, First dose on Sun04/20/22 at 2100 2024 (Given - Provider: Richard Hernandez RN) 0847 (Given - Provider: Marsha Nixon RN)1302 (Given - Provider: Marsha Nixon RN)204 (Given - Provider: Fadumo Pittman RN) 0846 (Given - Provider: Tracy Agudelo, AIDAN)1400 (Canceled Entry - Provider: Automatic Discharge Provider [...] Minutes, Every 8 hours, First dose on Sun04/20/22 at 2200, For 2 doses, Recovery & On Unit, premix bag, Indication: Prophylaxis-Surgical 2206 (New Bag - Provider: Richard Hernandez RN) 0516 (New Bag - Provider: Richard Hernandez [...] at 2100 220 (Given - Provider: Richard Hernandez, RN) 0846 (Given - Provider: Marsha Nixon [...] Pittman RN) 0848 (Given - Provider: Tracy Jammie, RN) polyethylene glycol (MIRALAX) packet 17 g 17 g, oral, Daily, First dose on Yvette 04/20/22 at 2000 2106 (Not Given - Provider: Richard Hernandez RN - Reason: Patient/Resident/Ag ent refused - education provided ) 0857 (Not Given - Provider: Marsha Nixon RN - Reason: Patient/Resident/Agent refused - education provided ) 0851 (Given - Provider: Tracy Agudelo, AIDAN) potassium chloride (KLOR-CON) CR tablet 10 mEq 10 mEq, oral, 2 times daily, First dose on Yvette 04/20/22 at 2100, Tablet may be swallowed whole [...] daily, First dose on Yvette 04/20/22 at 2099 2024 (Given - Provider: Richard Hernandez RN) 0846 (Given - Provider: Marsha Nixon RN)2041 [...] Pittman RN) 0852 (Given - Provider: Tracy Agudelo, AIDAN) sucralfate (CARAFATE) tablet 1 g 1 g, oral, 4 times daily before meals and nightly, First dose on Yvette 04/20/22 at 2200 2209 (Given - Provider: Richard Hernandez RN) 0630 (Given - Provider: Richard Hernandez RN)1101 (Given - Provider: Marsha Nixon RN)1624 (Given - Provider: Marsha Nixon RN)2046 (Given - Provider: Fadumo Pittman RN) 0644 (Given - Provider: Fadumo Pittman RN)1130 (Canceled Entry - Provider: Automatic Discharge Provider - Comment: Automatically canceled at discontinue of medication order) temazepam (RESTORIL) capsule 30 mg 30 mg, oral, Nightly, First dose on Yvette 04/20/22 at 2100, HAZARDOUS Drug Precautions - Low [...] h/o DVTs 1624 (Given - Provider: Marsha Nixon RN) Continuous Medication Order 04/20/2022 04/21/2022 04/22/2022 lactated Ringer's infusion 100 mL/hr, intravenous, Continuous, Starting on Yvette 04/20/22 at 1715 1706 (New Bag - Provider: Meghan Muller RN) 2154 (New Bag - Provider: Fadumo Pittman [...] Every 4 hours PRN, wheezing, Starting on Sun04/20/22 at 1652 aluminum-magnesium hydroxide-simethicone (MAALOX) 200-200-20 mg/5 mL suspension 30 mL 30 mL, oral, 4 times daily PRN, indigestion, heartburn, Starting on Yvette 04/20/22 at 1652 bethanechol (URECHOLINE) tablet 25 mg 25 mg, oral, 3 times daily PRN, As needed for urinary retention or PVR greater than 400 cc, Starting on Sun04/20/22 at 1652 bisacodyL (DULCOLAX) suppository 10 mg 10 mg, rectal, Daily PRN, constipation, If magnesium hydroxide ineffective, Starting on Sun04/20/22 at 1652 cloNIDine (CATAPRES) tablet 0.1 mg 0.1 mg, oral, Every 8 hours PRN, high blood pressure, for SBP more than 170 or DBP more than 105, Starting on Yvette 04/20/22 at 1652 cyclobenzaprine (FLEXERIL) tablet 5 mg 5 mg, oral, 3 times daily PRN, muscle spasms, Starting on Sun04/20/22 at 1652 0516 (Given - Provider: Richard Hernandez RN)1302 (Given - Provider: Marsha Nixon, AIDAN) 0054 (Given - Provider: Fadumo Pittman RN) diphenhydrAMINE (BENADRYL) injection 25 mg 25 mg, intravenous, Every 6 hours PRN, itching, Starting on Yvette 04/20/22 at 1652 EPINEPHrine (ADRENALIN) injection (CANCELED) As needed, Starting on Sun04/20/22 [...] at 1652 0743 (Given - Provider: Marsha Nixon, AIDAN)1101 (Given - Provider: Marsha Nixon, AIDAN)2047 (Given - Provider: Fadumo Pittman, AIDAN) 0325 (Given - Provider: Fadumo Pittman, RN) magnesium hydroxide (MILK OF MAGNESIA) 400 [...] at 1652 2041 (Given - Provider: Fadumo Pittman, AIDAN) ondansetron ODT (ZOFRAN-ODT) disintegrating tablet 4 mg [...] Hernandez RN) 0239 (Given - Provider: Richard Hernandez, RN)0629 [...] 4 hours PRN, moderate pain, Starting on 04/21/22 at 1355 1418 (See Alternative - Provider: [...] Care Teams (unrecognized sec tion and content) Head Of Marketing Relationship Specialty Start Date End Date Levi Shine MD [address] [place] [address] [phone] PCP - General 11/22/20 Head Of Marketing Relationship Specialty [place] [address] [place] [address] PCP - General 11/22/20 Head Of Marketing Relationship Specialty Start Date End Date Levi Shine MD [address] [place] [address] PCP - General 11/22/20 FOR RECORDS PERTAINING [...] BE BASED ON THE PRIMARY CLINICAL RECORDS. [facility] [employer] [facility]. provides no warranty or guarantee of the accuracy or completeness of information in this document.
--- NOTE | 2024-09-21 19:48 | ECG_ITS ---
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 Measurements Intervals [place] Rate: 79 P: 129 W[place]: 161 QRS: 72 QRSD: 68 T: 71 QT: 358 QTc: 392 Interpretive Statements ECTOPIC ATRIAL RHYTHM 9150 abnormal ECG Compared to ECG 09/15/2024 05:15:02 Sinus rhythm no longer present Electronically Signed On 09-21-2024 22:16:08 EDT by GELACIO SHORT M.D.
--- NOTE | 2024-09-21 19:50 | ED.WEAKNESS1 ---
HPI - Weakness General Chief complaint: Weakness Stated complaint: Altered Mental Status Time Seen by Provider: 09/21/24 19:43 Source: patient Mode of arrival: ambulance Limitations: no limitations History of Present Illness HPI Narrative: recent hospitalization for COPD exacerbation. Discharged home 3 days ago. States yesterday she passed out while standing and again today. Yesterday she injured her rib cage when she fell. She lives alone. She is not sure today who called 911. Per nursing the family called 911. She arrives via Squad awake and in no distress. States she only passed out when sitting or standing. No symptoms lying down. No complaint of chest pain other than her sore right rib cage. Not short of breath today. No nausea or vomiting she is now complaining of RUQ abdominal pain. Not sure if this was injured when she fell Related Data Home Medications ?Medication ?Instructions ?Recorded ?Confirmed albuterol sulfate 90 mcg/actuation 2 inh inhalation Q6H PRN shortness 09/26/22 09/21/24 aerosol inhaler of breath or wheezing cetirizine 10 mg tablet 10 mg PO DAILY 09/26/22 09/21/24 gabapentin 600 mg tablet 1,200 mg PO .qhs 09/26/22 09/21/24 isosorbide mononitrate 60 mg 60 mg PO .q24 09/26/22 09/21/24 tablet,extended release 24 hr metoclopramide HCl 10 mg tablet 10 mg PO .COMPLEX 09/26/22 09/21/24 metoprolol succinate 100 mg 100 mg PO Q12H 09/26/22 09/21/24 tablet,extended release 24 hr pantoprazole 40 mg tablet,delayed 40 mg PO DAILY 09/26/22 09/21/24 release potassium chloride 10 mEq 10 meq PO BID 09/26/22 09/21/24 tablet,extended release(part/cryst) gabapentin 600 mg tablet 600 mg PO QAM 04/28/23 09/21/24 venlafaxine 150 mg 150 mg PO DAILY 06/25/23 09/13/24 capsule,extended release 24 hr venlafaxine 75 mg capsule,extended 75 mg PO DAILY 06/25/23 09/13/24 release 24 hr diazepam 2 mg tablet 2 mg PO TID PRN anxiety 09/13/24 09/21/24 ondansetron 4 mg disintegrating 4 mg PO QID PRN nausea and vomiting 09/13/24 09/21/24 tablet temazepam 30 mg capsule 30 mg PO QPM PRN sleep 09/13/24 09/21/24 Previous Rx's ?Medication ?Instructions ?Recorded methocarbamol 500 mg tablet 500 mg PO Q8H PRN muscle pain #10 09/08/24 tabs tramadol 50 mg tablet 50 mg PO Q8H PRN pain #14 tabs 09/08/24 benzonatate 200 mg capsule 200 mg PO TID PRN cough #30 caps 09/16/24 levofloxacin 750 mg tablet 750 mg PO QD #10 tabs 09/16/24 montelukast 10 mg tablet 10 mg PO QHS #30 tabs 09/16/24 prednisone 10 mg tablet 40 mg (4 x 10 mg) PO DAILY #32 tabs 09/16/24 Allergies Allergy/AdvReac Type Severity Reaction Status Date / Time NSAIDS (Non-Steroidal Allergy Severe Anaphylaxis Verified 09/21/24 19:39 Anti-Inflamma vancomycin Allergy hair falls Verified 09/21/24 19:39 out morphine AdvReac Intermediate Hives Verified 09/21/24 19:39 baclofen AdvReac Confusion Verified 09/21/24 19:39 Review of Systems ROS Status of ROS 10 or more systems reviewed and unremarkable except as noted in history and below [facility] Medical History (Updated 09/22/24 @ 01:29 by Carlo Busch MD) Depression ?F32.A - Depression, unspecified (ICD-10) Coronary artery disease ?I25.10 - Atherosclerotic heart disease of [place] coronary artery without angina pectoris (ICD-10) Respiratory distress ?R06.03 - Acute respiratory distress (ICD-10) Drug-induced hyperglycemia ?R73.9 - Hyperglycemia, unspecified (ICD-10) ?T50.905A - Adverse effect of unspecified drugs, medicaments and biological substances, initial encounter (ICD-10) Iron deficiency anemia ?D50.9 - Iron deficiency anemia, unspecified (ICD-10) Acute UTI ?N39.0 - Urinary tract infection, site not specified (ICD-10) Physical deconditioning ?R53.81 - Other malaise (ICD-10) Emphysema lung ?J43.9 - Emphysema, unspecified (ICD-10) Acute hypoxic respiratory failure ?J96.01 - Acute respiratory failure with hypoxia (ICD-10) Acute exacerbation of chronic obstructive pulmonary disease ?J44.1 - Chronic obstructive pulmonary disease with (acute) exacerbation (ICD-10) Multiple falls ?R29.6 - Repeated falls (ICD-10) Acute chest wall pain ?R07.89 - Other chest pain (ICD-10) Low back pain ?M54.50 - Low back pain, unspecified (ICD-10) History of glaucoma ?Z86.69 - Personal history of other diseases of the nervous system and sense organs (ICD-10) Medication side effect ?T88.7XXA - Unspecified adverse effect of drug or medicament, initial encounter (ICD-10) Contusion of left chest wall ?S20.212A - Contusion of left front wall of thorax, initial encounter (ICD-10) GERD (gastroesophageal reflux disease) ?K21.9 - Gastro-esophageal reflux disease without esophagitis (ICD-10) Anxiety ?F41.9 - Anxiety disorder, unspecified (ICD-10) Seasonal allergies ?J30.2 - Other seasonal allergic rhinitis (ICD-10) Bronchitis ?J40 - Bronchitis, not specified as acute or chronic (ICD-10) COPD (chronic obstructive pulmonary disease) ?J44.9 - Chronic obstructive pulmonary disease, unspecified (ICD-10) Hypertension ?I10 - Essential (primary) hypertension (ICD-10) Surgical History (Updated 09/14/24 @ 10:01 by SOPHIA JACKSON) History of cataract surgery ?Z98.49 - Cataract extraction status, unspecified eye (ICD-10) History of appendectomy ?Z90.49 - Acquired absence of other specified parts of digestive tract (ICD-10) History of hysterectomy ?Z90.710 - Acquired absence of both cervix and uterus (ICD-10) History of left hip replacement ?Z96.642 - Presence of left artificial hip joint (ICD-10) History of right hip replacement ?Z96.641 - Presence of right artificial hip joint (ICD-10) History of total right knee replacement ?Z96.651 - Presence of right artificial knee joint (ICD-10) History of left knee replacement ?Z96.652 - Presence of left artificial knee joint (ICD-10) Family History Mother Family history of CHF (congestive heart failure) Family history of cancer Family history of diabetes mellitus Family history of hypertension Family history of myocardial infarction Brother Family history of cancer Family history of hypertension Social History Within the past year, how often did you have a drink containing alcohol: never Score interpretation: A score less than 3 is consistent with normal alcohol consumption. Smoking status: Light tobacco smoker Non-prescribed substance use: denies use Previous occupational history: disabled Highest level of school completed/degree received: some college, no degree Are you now , , , , never or living with a partner: Little interest or pleasure in doing things: not at all Feeling down, depressed, or hopeless: not at all Feel stressed/tense/nervous/anxious/difficulty sleeping: only a little Exam Constitutional Vital Signs, click to edit/add: Last Vital Signs Temp 98.8 F 09/21/24 19:34 Pulse 76 09/22/24 01:20 Resp 19 09/22/24 01:20 BP 71/48 L 09/22/24 00:28 Pulse Ox 97 09/22/24 00:42 O2 Del Method Nasal Cannula 09/22/24 00:42 Common normals: no apparent distress, average body habitus, oriented x3, no limitations, healthy appearing, alert and well nourished [facility] Common normals: normocephalic and head/scalp atraumatic Eye Common normals: EOMs intact bilaterally and conjunctivae normal Chest Other: mild tenderness right ant. inferior rib cage. no obvious brusing Respiratory Common normals: normal respiratory effort, no retractions and no use of accessory muscles Cardio Common normals: regular rate, regular rhythm, S1 normal heart sound and S2 normal heart sound GI Common normals: Normal to inspection, nondistended, normoactive bowel sounds present, soft to palpation and non-tender Extremity Common normals: normal to inspection Neuro Common normals: oriented x3, CN's II-XII intact bilaterally and moves all extremities Psych Appearance: grossly normal Course Vital Signs Vital signs: Vital Signs Temperature 98.8 F 09/21/24 19:34 Pulse Rate 80 09/21/24 19:34 Blood Pressure 76/52 L 09/21/24 19:34 Pulse Oximetry 86 L 09/21/24 19:34 Oxygen Delivery Method Room Air 09/21/24 19:34 Temperature 98.8 F 09/21/24 19:34 Pulse Rate 76 09/22/24 01:20 Respiratory Rate 19 09/22/24 01:20 Blood Pressure 71/48 L 09/22/24 00:28 Pulse Oximetry 97 09/22/24 00:42 Oxygen Delivery Method Nasal Cannula 09/22/24 00:42 MDM - Weakness MDM Narrative Medical decision making narrative: patient recently discharged after admission for COPD exacerbation 3 days ago. States 2 days after discharged she passed out and again today. Episodes occurred while sitting or standing. Asymptomatic lying down. Complained of right rib cage pain related to her fall. Also complained of RUQ pain. Mild tenderness right inferior anterior rib cage and RUQ. Patient hypotensive on arrival with systolic BP 76. CT abdomen with findings of 4.3x2.9cm mass left adrenal gland which is likely an adrenal myelolipoma. MRI can be ordered on nonemergent basis for further characerization. BP improved to 94/51 with hydration. Serial troponin neg. labs demonstrate acute renal failure repeat UA pending Lab Data Labs: Lab Results 09/21/24 09/21/24 Range/Units 19:57 23:33 WBC 14.2 H (4.0-11.0) 10^3/uL RBC 3.43 L (4.20-5.40) 10^6/uL Hgb 11.0 L (12.0-16.0) g/dL Hct 34.2 L (36.0-48.0) % MCV 99.7 H (81.0-99.0) fL MCH 32.1 (26.7-34.0) pg MCHC 32.2 (29.9-35.2) g/dL RDW 13.4 (11.0-15.0) % Plt Count 172 (150-450) 10^3/uL MPV 12.4 (9.5-13.5) fL Seg Neuts % (Manual) 81.0 H (43.0-75.0) Lymphocytes % (Manual) 5.0 L (20.5-60.0) % Atypical Lymphs % (Man) 0.0 % Monocytes % (Manual) 14.0 H (1.7-12.0) % Eosinophils % (Manual) 0.0 L (0.9-7.0) % Basophils % (Manual) 0.0 L (0.2-2.0) % Neutrophils # (Manual) 11.50 H (1.4-6.5) 10^3/uL Lymphocytes # (Manual) 0.71 L (1.20-3.80) 10^3/uL Abs Atypical Lymphs Man 0.00 Monocytes # (Manual) 1.98 H (0.30-0.80) 10^3/uL Eosinophils # (Manual) 0.00 (0.00-0.70) 10^3/uL Basophils # (Manual) 0.00 (0.00-0.10) 10^3/uL Sodium 132 L (136-145) mmol/L Potassium 4.3 (3.5-5.1) mmol/L Chloride 97 L (98-107) mmol/L Carbon Dioxide 24.1 (21.0-32.0) mmol/L Anion Gap 15.2 BUN 51.0 H (7.0-18.0) mg/dL Creatinine 4.39 H (0.55-1.02) mg/dL Est GFR ( Amer) 12 L (>=60 mL/min/1.73m^2) Est GFR (Non-Af Amer) 10 L (>=60 mL/min/1.73m^2) BUN/Creatinine Ratio 11.6 Glucose 103 (74-106) mg/dL Lactate 1.0 (0.4-2.0) mmol/L Calcium 8.1 L (8.5-10.1) mg/dL Total Bilirubin 0.6 (0.2-1.0) mg/dL AST 21 (15-37) U/L ALT 17 (14-59) U/L Alkaline Phosphatase 74 (46-116) U/L Troponin I High Sens 11.8 18.6 (4.0-51.3) pg/mL Total Protein 5.9 L (6.4-8.2) g/dL Albumin 2.5 L (3.4-5.0) g/dL Globulin 3.4 g/dL Albumin/Globulin Ratio 0.7 Discharge Plan Discharge Chief Complaint: Weakness Clinical Impression: Dehydration, Acute renal failure (ARF), Recurrent syncope, Acute hypotension Patient Disposition: Admitted As Inpatient
[2024-09-21 20:08] LABS: Hematocrit 34.2 % (36.0-48.0); Mean Corpuscular HGB Conc 32.2 g/dL (29.9-35.2); Mean Corpuscular Hemoglobin 32.1 pg (26.7-34.0); Mean Corpuscular Volume 99.7 fL (81.0-99.0); Mean Platelet Volume 12.4 fL (9.5-13.5); Platelet Count 172 10^3/uL (150-450); Red Blood Count 3.43 10^6/uL (4.20-5.40); Red Cell Distribution Width 13.4 % (11.0-15.0); White Blood Count 14.2 10^3/uL (4.0-11.0)
[2024-09-21] MEDS: 0.9 % SODIUM CHLORIDE 1,000 ML 999 ML IV ×2 (20:13→22:04)
[2024-09-21 20:24] LABS: Alanine Aminotransferase 17 U/L (14-59); Albumin Globulin Ratio 0.7; Albumin Level 2.5 g/dL (3.4-5.0); Alkaline Phosphatase 74 U/L (46-116); Anion Gap 15.2; Aspartate Amino Transferase 21 U/L (15-37); BUN Creatinine Ratio 11.6; Bilirubin Total 0.6 mg/dL (0.2-1.0); Calcium 8.1 mg/dL (8.5-10.1); Carbon Dioxide 24.1 mmol/L (21.0-32.0); Chloride 97 mmol/L (98-107); Estimated GFR (African America 12 (>=60 mL/min/1.73m^2); Estimated GFR (Non-African Ame 10 (>=60 mL/min/1.73m^2); Globulin 3.4 g/dL; Glucose 103 mg/dL (74-106); Potassium 4.3 mmol/L (3.5-5.1); Sodium 132 mmol/L (136-145); Total Protein 5.9 g/dL (6.4-8.2)
[2024-09-21 20:28] LABS: Troponin I High Sensitivity 11.8 pg/mL (4.0-51.3)
[2024-09-21 20:33] LABS: Lymphocytes Absolute Manual 0.71 10^3/uL (1.20-3.80); Monocytes Absolute Manual 1.98 10^3/uL (0.30-0.80)
[2024-09-21] MEDS: FENTANYL CITRATE/PF 100 MCG/2 ML VIAL 50 MCG IV (21:21)
[2024-09-22] VITALS (35 sets, daily range): BP systolic 71–98; BP diastolic 34–62; PULSE 71–86; TEMP 36.6–37.7; O2SAT 90–97; BMI 32.3
[2024-09-22 00:19] LABS: Troponin I High Sensitivity 18.6 pg/mL (4.0-51.3)
--- OUTSIDE RECORDS SUMMARY | 2024-09-22 02:15 | XMS_ITS | CCD ---
Author Organization [facility] Care Team Providers Care Relay Record Clerk Name Role Phone CALOS SMITH JR. Referring Unavailable MARSHA HATCH Attending Unavailable Levi Shine MD Primary Care Provider KARAN SULLIVAN Attending Unavailable LEVI SHINE Primary Care Unavailable LEVI SHINE Referring Unavailable KARAN SULLIVAN Admitting Unavailable KARAN SULLIVAN Attending Unavailable LEVI SHINE Primary Care Unavailable LEVI SHINE Referring Unavailable KARAN SULLIVAN Admitting Unavailable Levi Shine MD Primary Care Provider [phone] Levi Shine MD Primary Care Provider RL [...] Unavailable HOY, LEVI Primary Care Unavailable MIL GARZA~[id number], NE SEA GARZA~[phone] MIL Referring Unavailable HOY, LEVI Primary Care [...] ceFAZolin; Translations: [CEFAZOLIN] Drug Allergy 1 Anaphylaxis [facility] (5 sources) Morphine; Translations: [MORPHINE] Drug Allergy 1 Hives, Itching [facility] (8 sources) NSAIDs; Translations: [NSAIDS (NON-STEROIDAL ANTI-INFLAMMATOR Y DRUG)] Drug Allergy 3 Anaphylaxis [facility] (5 sources) Vancomycin; Translations: [VANCOMYCIN] Drug Allergy 1 Other [facility] (1 source) Aspirin Drug Allergy 0 [facility] (3 sources) ceFAZolin Drug Allergy 5 [facility] (1 source) Morphine Drug Allergy 0 [facility] (2 sources) Morphine Drug Allergy 3 [facility] (2 sources) Vancomycin Drug Allergy [facility] Medications Current Medications Medication [...] 20 mg/ml oral solution (2 sources) Uncompetitive C-yjjifr-R-aspartate Receptor Antagonist, Sigma-1 Agonist End: 12-29-2021 take [...] mg docusate sodium 50 mg / sennosides, long term 8.6 mg oral tablet (2 sources) Start: [...] at 0900 take 2 tablets by mo [facility] at bedtime gabapentin (NEURONTIN) 600 mg [...] Discharge) Start: 01-08-2021 take 1 tablet by [facility] every six hours as needed oxyCODONE (ROXICODONE) [...] Oxygen Therapy , Adult polyethylene glycol 3350 82690 mg powder for oral solution (6 sources) [...] for nausea or vomiting. 0 Active sennosides, long term 8.6 mg oral tablet (1 source) Start: [...] 02-19-2023 Episodic Other aftercare (1 source) Other exterminator helper (current) drug therapy; Translations: [OTH SYNTHETIC CLOTH BINDING CUTTER CURRENT DRUG THERAPY] Onset: 08-25-2022 Episodic Other aftercare (1 source) alf (current) use of anticoagulants; Translations: [ALF CURRNT [...] Cx Nom (U) ORGANISM: Escherichia coli (O:ESCCOL) [place] Count >100,000 Aerobic YUDY Charge (NMIC56) ---- [...] RESISTANT TO ALL B-LACTAM DRUGS. PERFORMED BY: [facility] [address] [id number] PATHOLOGIST FITTER / WELDER KENZIE NICOLE M.D. Normal The [facility] Comment on above: Performed By: #### C UU #### [facility] [address] [phone] [facility] CRP [Mass/Vol]on 02-19-2023 C-Reactive Protein 1.0 mg/dL Normal 0.0-1.0 [facility] Comment on above: Performed By: #### 1 988-5 #### [facility] ([facility]) HOSPITAL LAB [address] [place] [address] ESR (Bld) [Velocity]on 02-19 Basophils (Bld) [#/Vol] 0.09 10*3/uL Normal 0.00-0.20 [facility] Comment on above: Performed By: #### 5 75-1 #### [facility] ([facility]) LAB [address] [place] [address] Basophils/100 WBC (Bld) 1.1 % Normal 0.0-2.0 [facility] Comment on above: Performed By: #### 5 75-1 #### [facility] ([facility] [address] [place] [address] Eosinophils (Bld) [#/Vol] 0.17 10*3/uL Normal 0.00-0.70 [facility] Comment on above: Performed By: #### 5 75-1 #### [facility] [place] [facility] [address] [place] [address] Eosinophils/100 WBC (Bld) 2.0 % Normal 0.0-7.0 [facility] Comment on above: Performed By: #### 5 75-1 #### [facility] [place] [facility] LAB [address] [place] [address] Erythrocyte distribution width (RBC) [Ratio] 13.5 % Normal 11.0-14.8 [facility] Comment on above: Performed By: #### 5 75-1 #### [facility] [place] [facility] LAB [address] [place] [address] Hematocrit (Bld) [Volume fraction] 39.9 % Normal 34.3-47.9 [facility] Comment on above: Performed By: #### 5 75-1 #### [facility] [place] [facility] [address] [place] [address] Hemoglobin (Bld) [Mass/Vol] 12.7 g/dL Normal 12.0-16.0 [facility] Comment on above: Performed By: #### 5 75-1 #### [facility] [place] [facility] [address] [place] [address] Immature granulocytes (Bld) [#/Vol] 0.02 10*3/uL Normal 0.00-0.10 [facility] Comment on above: Performed By: #### 5 75-1 #### [facility] [place] [facility] [address] [place] [address] Immature granulocytes/100 WBC (Bld) 0.2 % Normal 0.0-1.2 [facility] Comment on above: Performed By: #### 5 75-1 #### [facility] [place] [facility] [address] [place] [address] Lymphocytes (Bld) [#/Vol] 2.55 10*3/uL Normal 1.00-4.80 [facility] Comment on above: Performed By: #### 5 75-1 #### [facility] [place] [facility] [address] [place] [address] Lymphocytes/100 WBC (Bld) 30.6 % Normal 17.9-49.6 [facility] Comment on above: Performed By: #### 5 75-1 #### [facility] [place] [facility] [place] [address] MCH 31.4 pcg Normal 27.0-34.0 [facility] Comment on above: Performed By: #### 5 75-1 #### [facility] [place] [facility] [address] [place] [address] MCHC (RBC) [Mass/Vol] 31.8 g/dL Normal 30.8-35.3 [facility] Comment on above: Performed By: #### 5 75-1 #### [facility] [place] [facility] [address] [place] [address] MCV (RBC) [Entitic vol] 98.5 fL High 80.0-97.0 [facility] Comment on above: Performed By: #### 5 75-1 #### [facility] [place] [facility] [address] [place] [address] Monocytes (Bld) [#/Vol] 0.57 10*3/uL Normal 0.00-0.90 [facility] Comment on above: Performed By: #### 5 75-1 #### [facility] [place] [facility] [address] [place] [address] Monocytes/100 WBC (Bld) 6.9 % Normal 0.0-12.0 [facility] Comment on above: Performed By: #### 5 75-1 #### [facility] [place] [facility] [address] [place] [address] Neutrophils Absolute 4.92 K/mcL Normal 1.80-7.70 [facility] Comment on above: Performed By: #### 5 75-1 #### [facility] [place] ([facility]) LAB [address] [place] [address] Neutrophils/100 WBC (Bld) 59.2 % Normal 38.1-75.5 [facility] Comment on above: Performed By: #### 5 75-1 #### [facility] [place] ([facility] LAB [address] [place] [address] Platelet mean volume (Bld) [Entitic vol] 11.5 fL Normal 6.2-12.1 [facility] Comment on above: Performed By: #### 5 75-1 #### [facility] [place] [facility] [address] [place] [address] Platelets (Bld) [#/Vol] 262 10*3/uL Normal 142-424 [facility] Comment on above: Performed By: #### 5 75-1 #### [facility] [place] [facility] [address] [place] [address] RBC (Bld) [#/Vol] 4.05 10*6/uL Normal 3.74-5.34 [facility] Comment on above: Performed By: #### 5 75-1 #### [facility] [place] [facility] [address] [place] [address] WBC (Bld) [#/Vol] 8.3 10*3/uL Normal 4.6-10.2 [facility] Comment on above: Performed By: #### 5 75-1 #### [facility] [place] [facility] [address] [place] [address] CBC AUTO DIFFon 08-30-2022 BASO # 0.1 103/ul Normal 0.0-0.1 [facility] Comment on above: Performed By: #### C BC #### [facility] [address] [place], [place] [address] Dr. Jeffrey Thomas Basophils/100 WBC (Bld) 0.9 % Normal 0.2-2.0 [facility] Comment on above: Performed By: #### C BC #### [facility] [address] [place] [address] Dr. Jeffrey Thomas EO # 0.2 103/ul Normal 0.0-0.7 [facility] Comment on above: Performed By: #### C BC #### [facility] [address] [place] [address] Dr. Jeffrey Thomas Eosinophils/100 WBC (Bld) 3.9 % Normal 0.9-7.0 [facility] Comment on above: Performed By: #### C BC #### [facility] [address] [place] [address] Dr. Jeffrey Thomas Erythrocyte distribution width (RBC) [Ratio] 14.6 % Normal 11.0-15.0 [facility] Comment on above: Performed By: #### C BC #### [facility] [address] [place] [address] Dr. Jeffrey Thomas Hematocrit (Bld) [Volume fraction] 32.7 % Critically low 36.0-48.0 [facility] Comment on above: Performed By: #### C BC #### [facility] [address] [place] [address] Dr. Jeffrey Thomas Hemoglobin (Bld) [Mass/Vol] 10.3 g/dL Critically low 12.0-16.0 [facility] Comment on above: Performed By: #### C BC #### [facility] [address] [place] [address] Dr. Jeffrey Thomas IG # 0.01 10e3/ul Normal 0.00-0.03 [facility] Comment on above: Performed By: #### C BC #### [facility] [address] [place] [address] Dr. Jeffrey Thomas IG % 0.2 % Normal 0.0-0.5 [facility] Comment on above: Performed By: #### C BC #### [facility] [address] [place] [address] Dr. Jeffrey Thomas LYMPH # 1.7 103/ul Normal 1.2-3.8 [facility] Comment on above: Performed By: #### C BC #### [facility] [address] [place] [address] Dr. Jeffrey Thomas Lymphocytes/100 WBC (Bld) 30.8 % Normal 20.5-60.0 [facility] Comment on above: Performed By: #### C BC #### [facility] [address] [place] [address] Dr. Jeffrey Thomas MANUAL DIFF REQ NO Normal [facility] Comment on above: Performed By: #### C BC #### [facility] [address] [place] [address] Dr. Jeffrey Thomas MCH (RBC) [Entitic mass] 30.2 pg Normal 26.7-34.0 [facility] Comment on above: Performed By: #### C BC #### [facility] [address] [place] [address] Dr. Jeffrey Thomas MCHC (RBC) [Mass/Vol] 31.5 g/dL Normal 29.9-35.2 [facility] Comment on above: Performed By: #### C BC #### [facility] [address] [place] [address] Dr. Jeffrey Thomas MCV (RBC) [Entitic vol] 95.9 fL Normal 81.0-99.0 [facility] Comment on above: Performed By: #### C BC #### [facility] [address] [place] [address] Dr. Jeffrey Thomas MONO # 0.4 103/ul Normal 0.3-0.8 [facility] Comment on above: Performed By: #### C BC #### [facility] [address] [place] [address] Dr. Jeffrey Thomas Monocytes/100 WBC (Bld) 7.8 % Normal 1.7-12.0 [facility] Comment on above: Performed By: #### C BC #### [facility] [address] [place] [address] Dr. Jeffrey Thomas NEUT # 3.2 103/ul Normal 1.4-6.5 [facility] Comment on above: Performed By: #### C BC #### [facility] [address] [place] [address] Dr. Jeffrey Thomas Neutrophils/100 WBC (Bld) 56.4 % Normal 43.0-75.0 [facility] Comment on above: Performed By: #### C BC #### [facility] [address] [place] [address] Dr. Jeffrey Thomas Platelet mean volume (Bld) [Entitic vol] 12.9 fL Normal 9.5-13.5 [facility] Comment on above: Performed By: #### C BC #### [facility] [address] [place] [address] Dr. Jeffrey Thomas PLT 149 103/ul Critically low 150-450 [facility] Comment on above: Performed By: #### C BC #### [facility] [address] [place] [address] Dr. Jeffrey Thomas RBC 3.41 106/ul Critically low 4.20-5.40 [facility] Comment on above: Performed By: #### C BC #### [facility] [address] [place] [address] Dr. Jeffrey Thomas WBC 5.6 103/ul Normal 4.0-11.0 [facility] Comment on above: Performed By: #### C BC #### [facility] [address] [place] [address] Dr. Jeffrey Thomas HEPATITIS PANEL, [facility] HBsAg Screen Negative Normal Negative [facility] Comment on above: Performed By: #### C MP #### [facility] [address] [place] [address] Dr. Jeffrey Thomas HCV AB Non-Reactive Normal Non Reactive [facility] Comment on above: Performed By: #### C MP #### [facility] [address] [place] [address] Dr. Jeffrey Thomas Hep A Ab, IgM Negative Normal Negative [facility] Comment on above: Performed By: #### C MP #### [facility] [address] [place] [address] Dr. Jeffrey Thomas Hep B Core Ab, IgM Negative Normal Negative [facility] Comment on above: Performed By: #### C MP #### [facility] [address] [place] [address] Dr. Jeffrey Thomas NM HEPATOBILIARY SCAN W [...] by: GARO CASILLAS Date: 2022-08-30 07:23 Normal [facility] PROF 14(COMP METB)on 023 Albumin [Mass/Vol] 2.5 g/dL Critically low 3.4-5.0 [facility] Comment on above: Performed By: #### T 4LC #### [facility] [address] [place] [address] Dr. Jeffrey Thomas Albumin/Globulin [Mass ratio] 0.9 {ratio} Normal [facility] Comment on above: Performed By: #### T 4LC #### [facility] [address] [place] [address] Dr. Jeffrey Thomas ALP [Catalytic activity/Vol] 97 U/L Normal 46-116 [facility] Comment on above: Performed By: #### T 4LC #### [facility] [address] [address] [address] Jeffrey Thomas ALT [Catalytic activity/Vol] 39 U/L Normal 14-59 [facility] Comment on above: Performed By: #### T 4LC #### [facility] [address] [address] [address] Jeffrey Thomas Anion gap [Moles/Vol] 12.9 mmol/L Normal [facility] Comment on above: Performed By: #### T 4LC #### [facility] [address] [place] [address] Dr. Jeffrey Thomas AST [Catalytic activity/Vol] 19 U/L Normal 15-37 [facility] Comment on above: Performed By: #### T 4LC #### [facility] [address] [place] [address] Dr. Jeffrey Thomas Bilirubin [Mass/Vol] 0.2 mg/dL Normal 0.2-1.0 [facility] Comment on above: Performed By: #### T 4LC #### [facility] [address] [place] [address] Dr. Jeffrey Thomas Calcium [Mass/Vol] 8.2 mg/dL Critically low 8.5-10.1 [facility] Comment on above: Performed By: #### T 4LC #### [facility] [address] [place] [address] Dr. Jeffrey Thomas Chloride [Moles/Vol] 111 mmol/L Critically high 98-107 [facility] Comment on above: Performed By: #### T 4LC #### [facility] [address] [place] [address] Dr. Jeffrey Thomas CO2 [Moles/Vol] 24.2 mmol/L Normal 21.0-32.0 [facility] Comment on above: Performed By: #### T 4LC #### [facility] [address] [place] [address] Dr. Jeffrey Thomas Creatinine [Mass/Vol] 1.05 mg/dL Critically high 0.55-1.02 [facility] Comment on above: Performed By: #### T 4LC #### [facility] [address] [place] [address] Dr. Jeffrey Thomas EGFR-AF VINCENTIAN >60 Normal >=60 [facility] Comment on above: Performed By: #### T 4LC #### [facility] [address] [place] [address] Dr. Jeffrey Thomas EGFR-NON AF VINCENTIAN 53 mL/min/1.73m2 Critically low >=60 [facility] Comment on above: Performed By: #### T 4LC #### [facility] [address] [place] [address] Dr. Jeffrey Thomas Globulin (S) [Mass/Vol] 2.7 g/dL Normal [facility] Comment on above: Performed By: #### T 4LC #### [facility] [address] [place] [address] Dr. Jeffrey Thomas Glucose [Mass/Vol] 109 mg/dL Critically high 74-106 [facility] Comment on above: Performed By: #### T 4LC #### [facility] [address] [place] [address] Dr. Jeffrey Thomas Potassium [Moles/Vol] 4.1 mmol/L Normal 3.5-5.1 [facility] Comment on above: Performed By: #### T 4LC #### [facility] [address] [place] [address] Dr. Jeffrey Thomas Protein [Mass/Vol] 5.2 g/dL Critically low 6.4-8.2 [facility] Comment on above: Performed By: #### T 4LC #### [facility] [address] [place] [address] Dr. Jeffrey Thomas Sodium [Moles/Vol] 144 mmol/L Normal 136-145 [facility] Comment on above: Performed By: #### T 4LC #### [facility] [address] [place] [address] Dr. Jeffrey Thomas Urea nitrogen [Mass/Vol] 11.0 mg/dL Normal 7.0-18.0 [facility] Comment on above: Performed By: #### T 4LC #### [facility] [address] [place] [address] Dr. Jeffrey Thomas Urea nitrogen/Creatinine [Mass ratio] 10.5 mg/mg Normal [facility] Comment on above: Performed By: #### T 4LC #### [facility] [address] [place] [address] Dr. Jeffrey Thomas CBC AUTO DIFFon 08-29-2022 BASO # 0.1 103/ul Normal 0.0-0.1 [facility] Comment on above: Performed By: #### T 4LC #### [facility] [address] [place] [address] Dr. Jeffrey Thomas Basophils/100 WBC (Bld) 1.2 % Normal 0.2-2.0 [facility] Comment on above: Performed By: #### T 4LC #### [facility] [address] [place] [address] Dr. Jeffrey Thomas EO # 0.2 103/ul Normal 0.0-0.7 [facility] Comment on above: Performed By: #### T 4LC #### [facility] [address] [place] [address] Dr. Jeffrey Thomas Eosinophils/100 WBC (Bld) 4.1 % Normal 0.9-7.0 [facility] Comment on above: Performed By: #### T 4LC #### [facility] [address] [place] [address] Dr. Jeffrey Thomas Erythrocyte distribution width (RBC) [Ratio] 14.6 % Normal 11.0-15.0 [facility] Comment on above: Performed By: #### T 4LC #### [facility] [address] [place] [address] Dr. Jeffrey Thomas Hematocrit (Bld) [Volume fraction] 33.6 % Critically low 36.0-48.0 [facility] Comment on above: Performed By: #### T 4LC #### [facility] [address] [place] [address] Dr. Jeffrey Thomas Hemoglobin (Bld) [Mass/Vol] 10.3 g/dL Critically low 12.0-16.0 [facility] Comment on above: Performed By: #### T 4LC #### [facility] [address] [place] [address] Dr. Jeffrey Thomas IG # 0.01 10e3/ul Normal 0.00-0.03 [facility] Comment on above: Performed By: #### T 4LC #### [facility] [address] [place] [address] Dr. Jeffrey Thomas IG % 0.2 % Normal 0.0-0.5 [facility] Comment on above: Performed By: #### T 4LC #### [facility] [address] [place] [address] Dr. Jeffrey Thomas LYMPH # 1.7 103/ul Normal 1.2-3.8 [facility] Comment on above: Performed By: #### T 4LC #### [facility] [address] [place] [address] Dr. Jeffrey Thomas Lymphocytes/100 WBC (Bld) 34.4 % Normal 20.5-60.0 [facility] Comment on above: Performed By: #### T 4LC #### [facility] [address] [place] [address] Dr. Jeffrey Thomas MANUAL DIFF REQ NO Normal [facility] Comment on above: Performed By: #### T 4LC #### [facility] [address] [place] [address] Dr. Jeffrey Thomas MCH (RBC) [Entitic mass] 29.5 pg Normal 26.7-34.0 [facility] Comment on above: Performed By: #### T 4LC #### [facility] [address] [place] [address] Dr. Jeffrey Thomas MCHC (RBC) [Mass/Vol] 30.7 g/dL Normal 29.9-35.2 [facility] Comment on above: Performed By: #### T 4LC #### [facility] [address] [place] [address] Dr. Jeffrey Thomas MCV (RBC) [Entitic vol] 96.3 fL Normal 81.0-99.0 [facility] Comment on above: Performed By: #### T 4LC #### [facility] [address] [place] [address] Dr. Jeffrey Thomas MONO # 0.4 103/ul Normal 0.3-0.8 [facility] Comment on above: Performed By: #### T 4LC #### [facility] [address] [place] [address] Dr. Jeffrey Thomas Monocytes/100 WBC (Bld) 8.2 % Normal 1.7-12.0 [facility] Comment on above: Performed By: #### T 4LC #### [facility] [address] [place] [address] Dr. Jeffrey Thomas NEUT # 2.5 103/ul Normal 1.4-6.5 [facility] Comment on above: Performed By: #### T 4LC #### [facility] [address] [place] [address] Dr. Jeffrey Thomas Neutrophils/100 WBC (Bld) 51.9 % Normal 43.0-75.0 [facility] Comment on above: Performed By: #### T 4LC #### [facility] [address] [place] [address] Dr. Jeffrey Thomas Platelet mean volume (Bld) [Entitic vol] 12.5 fL Normal 9.5-13.5 [facility] Comment on above: Performed By: #### T 4LC #### [facility] [address] [place] [address] Dr. Jeffrey Thomas PLT 157 103/ul Normal 150-450 [facility] Comment on above: Performed By: #### T 4LC #### [facility] [address] [place] [address] Dr. Jeffrey Thomas RBC 3.49 106/ul Critically low 4.20-5.40 [facility] Comment on above: Performed By: #### T 4LC #### [facility] [address] [place] [address] Dr. Jeffrey Thomas WBC 4.9 103/ul Normal 4.0-11.0 [facility] Comment on above: Performed By: #### T 4LC #### [facility] [address] [place] [address] Dr. Jeffrey Thomas PROF 14(COMP METB)on 023 Albumin [Mass/Vol] 2.6 g/dL Critically low 3.4-5.0 [facility] Comment on above: Performed By: #### C MP #### [facility] [address] [place], [place] [id number] Dr. Jeffrey Thomas Albumin/Globulin [Mass ratio] 1.0 {ratio} Normal [facility] Comment on above: Performed By: #### C MP #### [facility] [address] [place] [address] Dr. Jeffrey Thomas ALP [Catalytic activity/Vol] 94 U/L Normal 46-116 [facility] Comment on above: Performed By: #### C MP #### [facility] [address] [place] [address] Dr. Jeffrey Thomas ALT [Catalytic activity/Vol] 53 U/L Normal 14-59 [facility] Comment on above: Performed By: #### C MP #### [facility] [address] [place] [address] Dr. Jeffrey Thomas Anion gap [Moles/Vol] 11.2 mmol/L Normal Th [facility] Comment on above: Performed By: #### C MP #### [facility] [address] [place] [address] Dr. Jeffrey Thomas AST [Catalytic activity/Vol] 26 U/L Normal 15-37 [facility] Comment on above: Performed By: #### C MP #### [facility] [address] [place] [address] Dr. Jeffrey Thomas Bilirubin [Mass/Vol] 0.2 mg/dL Normal 0.2-1.0 [facility] Comment on above: Performed By: #### C MP #### [facility] [address] [place] [address] Dr. Jeffrey Thomas Calcium [Mass/Vol] 8.2 mg/dL Critically low 8.5-10.1 [facility] Comment on above: Performed By: #### C MP #### [facility] [address] [place] [address] Dr. Jeffrey Thomas Chloride [Moles/Vol] 114 mmol/L Critically high 98-107 [facility] Comment on above: Performed By: #### C MP #### [facility] [address] [place] [address] Dr. Jeffrey Thomas CO2 [Moles/Vol] 23.1 mmol/L Normal 21.0-32.0 [facility] Comment on above: Performed By: #### C MP #### [facility] [address] [address] [address] Jeffrey Thomas Creatinine [Mass/Vol] 0.95 mg/dL Normal 0.55-1.02 [facility] Comment on above: Performed By: #### C MP #### [facility] [address] [address] [address] Jeffrey Thomas EGFR-AF VINCENTIAN >60 Normal >=60 [facility] Comment on above: Performed By: #### C MP #### [facility] [address] [address] [address] Jeffrey Thomas EGFR-NON AF VINCENTIAN 59 mL/min/1.73m2 Critically low >=60 [facility] Comment on above: Performed By: #### C MP #### [facility] [address] [place] [address] Dr. Jeffrey Thomas Globulin (S) [Mass/Vol] 2.6 g/dL Normal [facility] Comment on above: Performed By: #### C MP #### [facility] [address] [address] [address] Jeffrey Thomas Glucose [Mass/Vol] 87 mg/dL Normal 74-106 [facility] Comment on above: Performed By: #### C MP #### [facility] [address] [address] [address] Jeffrey Thomas Potassium [Moles/Vol] 4.3 mmol/L Normal 3.5-5.1 [facility] Comment on above: Performed By: #### C MP #### [facility] [address] [address] [address] Jeffrey Thomas Protein [Mass/Vol] 5.2 g/dL Critically low 6.4-8.2 Th [facility] Comment on above: Performed By: #### C MP #### [facility] [address] [place] [address] Dr. Jeffrey Thomas Sodium [Moles/Vol] 144 mmol/L Normal 136-145 [facility] Comment on above: Performed By: #### C MP #### [facility] [address] [address] [address] Jeffrey Thomas Urea nitrogen [Mass/Vol] 10.0 mg/dL Normal 7.0-18.0 [facility] Comment on above: Performed By: #### C MP #### [facility] [address] [place] [address] Dr. Jeffrey Thomas Urea nitrogen/Creatinine [Mass ratio] 10.5 mg/mg Normal [facility] Comment on above: Performed By: #### C MP #### [facility] [address] [place] [address] Dr. Jeffrey Thomas CBC AUTO DIFFon 08-28-2022 BASO # 0.1 103/ul Normal 0.0-0.1 [facility] Comment on above: Performed By: #### T 4LC #### [facility] [address] [place] [address] Dr. Jeffrey Thomas Basophils/100 WBC (Bld) 1.2 % Normal 0.2-2.0 [facility] Comment on above: Performed By: #### T 4LC #### [facility] [address] [place] [address] Dr. Jeffrey Thomas EO # 0.3 103/ul Normal 0.0-0.7 [facility] Comment on above: Performed By: #### T 4LC #### [facility] [address] [place] [address] Dr. Jeffrey Thomas Eosinophils/100 WBC (Bld) 4.4 % Normal 0.9-7.0 [facility] Comment on above: Performed By: #### T 4LC #### [facility] [address] [place] [address] Dr. Jeffrey Thomas Erythrocyte distribution width (RBC) [Ratio] 14.8 % Normal 11.0-15.0 [facility] Comment on above: Performed By: #### T 4LC #### [facility] [address] [place] [address] Dr. Jeffrey Thomas Hematocrit (Bld) [Volume fraction] 33.5 % Critically low 36.0-48.0 [facility] Comment on above: Performed By: #### T 4LC #### [facility] [address] [place] [address] Dr. Jeffrey Thomas Hemoglobin (Bld) [Mass/Vol] 10.1 g/dL Critically low 12.0-16.0 [facility] Comment on above: Performed By: #### T 4LC #### [facility] [address] [place] [address] Dr. Jeffrey Thomas IG # 0.01 10e3/ul Normal 0.00-0.03 [facility] Comment on above: Performed By: #### T 4LC #### [facility] [address] [place] [address] Dr. Jeffrey Thomas IG % 0.2 % Normal 0.0-0.5 [facility] Comment on above: Performed By: #### T 4LC #### [facility] [address] [place] [address] Dr. Jeffrey Thomas LYMPH # 2.1 103/ul Normal 1.2-3.8 [facility] Comment on above: Performed By: #### T 4LC #### [facility] [address] [place] [address] Dr. Jeffrey Thomas Lymphocytes/100 WBC (Bld) 35.1 % Normal 20.5-60.0 [facility] Comment on above: Performed By: #### T 4LC #### [facility] [address] [place] [address] Dr. Jeffrey Thomas MANUAL DIFF REQ NO Normal [facility] Comment on above: Performed By: #### T 4LC #### [facility] [address] [place] [address] Dr. Jeffrey Thomas MCH (RBC) [Entitic mass] 29.6 pg Normal 26.7-34.0 [facility] Comment on above: Performed By: #### T 4LC #### [facility] [address] [place] [address] Dr. Jeffrey Thomas MCHC (RBC) [Mass/Vol] 30.1 g/dL Normal 29.9-35.2 [facility] Comment on above: Performed By: #### T 4LC #### [facility] [address] [address] [address] Jeffrey Thomas MCV (RBC) [Entitic vol] 98.2 fL Normal 81.0-99.0 [facility] Comment on above: Performed By: #### T 4LC #### [facility] [address] [address] [address] Jeffrey Thomas MONO # 0.5 103/ul Normal 0.3-0.8 [facility] Comment on above: Performed By: #### T 4LC #### [facility] [address] [place] [address] Dr. Jeffrey Thomas Monocytes/100 WBC (Bld) 7.7 % Normal 1.7-12.0 [facility] Comment on above: Performed By: #### T 4LC #### [facility] [address] [place] [address] Dr. Jeffrey Thomas NEUT # 3.1 103/ul Normal 1.4-6.5 [facility] Comment on above: Performed By: #### T 4LC #### [facility] [address] [place] [address] Dr. Jeffrey Thomas Neutrophils/100 WBC (Bld) 51.4 % Normal 43.0-75.0 [facility] Comment on above: Performed By: #### T 4LC #### [facility] [address] [place] [address] Dr. Jeffrey Thomas Platelet mean volume (Bld) [Entitic vol] 12.1 fL Normal 9.5-13.5 [facility] Comment on above: Performed By: #### T 4LC #### [facility] [address] [place] [address] Dr. Jeffrey Thomas PLT 180 103/ul Normal 150-450 [facility] Comment on above: Performed By: #### T 4LC #### [facility] [address] [place] [address] Dr. Jeffrey Thomas RBC 3.41 106/ul Critically low 4.20-5.40 [facility] Comment on above: Performed By: #### T 4LC #### [facility] [address] [address] [address] Jeffrey Thomas WBC 6.0 103/ul Normal 4.0-11.0 [facility] Comment on above: Performed By: #### T 4LC #### [facility] [address] [place] [address] Dr. Jeffrey Thomas PROF 14(COMP METB)on 023 Albumin [Mass/Vol] 2.8 g/dL Critically low 3.4-5.0 [facility] Comment on above: Performed By: #### C MP #### [facility] [address] [place] [address] Dr. Jeffrey Thomas Albumin/Globulin [Mass ratio] 1.1 {ratio} Normal [facility] Comment on above: Performed By: #### C MP #### [facility] [address] [place] [address] Dr. Jeffrey Thomas ALP [Catalytic activity/Vol] 96 U/L Normal 46-116 [facility] Comment on above: Performed By: #### C MP #### [facility] [address] [place] [address] Dr. Jeffrey Thmoas ALT [Catalytic activity/Vol] 72 U/L Critically high 14-59 [facility] Comment on above: Performed By: #### C MP #### [facility] [address] [place] [address] Dr. Jeffrey Thomas Anion gap [Moles/Vol] 12.8 mmol/L Normal [facility] Comment on above: Performed By: #### C MP #### [facility] [address] [place] [address] Dr. Jeffrey Thomas AST [Catalytic activity/Vol] 39 U/L Critically high 15-37 [facility] Comment on above: Performed By: #### C MP #### [facility] [address] [place] [address] Dr. Jeffrey Thomas Bilirubin [Mass/Vol] 0.2 mg/dL Normal 0.2-1.0 [facility] Comment on above: Performed By: #### C MP #### [facility] [address] [address] [address] Jeffrey Thomas Calcium [Mass/Vol] 7.8 mg/dL Critically low 8.5-10.1 [facility] Comment on above: Performed By: #### C MP #### [facility] [address] [address] [address] Jeffrey Thomas Chloride [Moles/Vol] 115 mmol/L Critically high 98-107 [facility] Comment on above: Performed By: #### C MP #### [facility] [address] [address] [address] Jeffrey Thomas CO2 [Moles/Vol] 20.4 mmol/L Critically low 21.0-32.0 [facility] Comment on above: Performed By: #### C MP #### [facility] [address] [place] [address] Dr. Jeffrey Thomas Creatinine [Mass/Vol] 0.98 mg/dL Normal 0.55-1.02 [facility] Comment on above: Performed By: #### C MP #### [facility] [address] [address] [address] Jeffrey Thomas EGFR-AF VINCENTIAN >60 Normal >=60 [facility] Comment on above: Performed By: #### C MP #### [facility] [address] [address] [address] Jeffrey Thomas EGFR-NON AF VINCENTIAN 57 mL/min/1.73m2 Critically low >=60 [facility] Comment on above: Performed By: #### C MP #### [facility] [address] [address] [address] Jeffrey Thomas Globulin (S) [Mass/Vol] 2.6 g/dL Normal [facility] Comment on above: Performed By: #### C MP #### [facility] [address] [address] [address] Jeffrey Thomas Glucose [Mass/Vol] 80 mg/dL Normal 74-106 [facility] Comment on above: Performed By: #### C MP #### [facility] [address] [address] [address] Jeffrey Thomas Potassium [Moles/Vol] 4.2 mmol/L Normal 3.5-5.1 [facility] Comment on above: Performed By: #### C MP #### [facility] [address] [place] [address] Dr. Jeffrey Thomas Protein [Mass/Vol] 5.4 g/dL Critically low 6.4-8.2 [facility] Comment on above: Performed By: #### C MP #### [facility] [address] [address] [address] Jeffrey Thomas Sodium [Moles/Vol] 144 mmol/L Normal 136-145 [facility] Comment on above: Performed By: #### C MP #### [facility] [address] [place] [address] Dr. Jeffrey Thomas Urea nitrogen [Mass/Vol] 10.0 mg/dL Normal 7.0-18.0 [facility] Comment on above: Performed By: #### C MP #### [facility] [address] [place] [address] Dr. Jeffrey Thomas Urea nitrogen/Creatinine [Mass ratio] 10.2 mg/mg Normal [facility] Comment on above: Performed By: #### C MP #### [facility] [address] [place] [address] Dr. Jeffrey Thomas CBC AUTO DIFFon 08-27-2022 BASO # 0.1 103/ul Normal 0.0-0.1 [facility] Comment on above: Performed By: #### C MP #### [facility] [address] [place] [address] Dr. Jeffrey Thomas Basophils/100 WBC (Bld) 1.2 % Normal 0.2-2.0 [facility] Comment on above: Performed By: #### C MP #### [facility] [address] [place] [address] Dr. Jeffrey Thomas EO # 0.2 103/ul Normal 0.0-0.7 [facility] Comment on above: Performed By: #### C MP #### [facility] [address] [place] [address] Dr. Jeffrey Thomas Eosinophils/100 WBC (Bld) 4.0 % Normal 0.9-7.0 [facility] Comment on above: Performed By: #### C MP #### [facility] [address] [place] [address] Dr. Jeffrey Thomas Erythrocyte distribution width (RBC) [Ratio] 14.6 % Normal 11.0-15.0 [facility] Comment on above: Performed By: #### C MP #### [facility] [address] [place] [address] Dr. Jeffrey Thomas Hematocrit (Bld) [Volume fraction] 35.8 % Critically low 36.0-48.0 [facility] Comment on above: Performed By: #### C MP #### [facility] [address] [place] [address] Dr. Jeffrey Thomas Hemoglobin (Bld) [Mass/Vol] 11.4 g/dL Critically low 12.0-16.0 [facility] Comment on above: Performed By: #### C MP #### [facility] [address] [place] [address] Dr. Jeffrey Thomas IG # 0.01 10e3/ul Normal 0.00-0.03 [facility] Comment on above: Performed By: #### C MP #### [facility] [address] [place] [address] Dr. Jeffrey Thomas IG % 0.2 % Normal 0.0-0.5 [facility] Comment on above: Performed By: #### C MP #### [facility] [address] [place] [address] Dr. Jeffrey Thomas LYMPH # 2.0 103/ul Normal 1.2-3.8 [facility] Comment on above: Performed By: #### C MP #### [facility] [address] [place] [address] Dr. Jeffrey Thomas Lymphocytes/100 WBC (Bld) 35.4 % Normal 20.5-60.0 [facility] Comment on above: Performed By: #### C MP #### [facility] [address] [place] [address] Dr. Jeffrey Thomas MANUAL DIFF REQ NO Normal [facility] Comment on above: Performed By: #### C MP #### [facility] [address] [place] [address] Dr. Jeffrey Thomas MCH (RBC) [Entitic mass] 29.9 pg Normal 26.7-34.0 [facility] Comment on above: Performed By: #### C MP #### [facility] [address] [place] [address] Dr. Jeffrey Thomas MCHC (RBC) [Mass/Vol] 31.8 g/dL Normal 29.9-35.2 [facility] Comment on above: Performed By: #### C MP #### [facility] [address] [place] [address] Dr. Jeffrey Thomas MCV (RBC) [Entitic vol] 94.0 fL Normal 81.0-99.0 [facility] Comment on above: Performed By: #### C MP #### [facility] [address] [place] [address] Dr. Jeffrey Thomas MONO # 0.5 103/ul Normal 0.3-0.8 [facility] Comment on above: Performed By: #### C MP #### [facility] [address] [place] [address] Dr. Jeffrey Thomas Monocytes/100 WBC (Bld) 9.2 % Normal 1.7-12.0 [facility] Comment on above: Performed By: #### C MP #### [facility] [address] [place] [address] Dr. Jeffrey Thomas NEUT # 2.8 103/ul Normal 1.4-6.5 [facility] Comment on above: Performed By: #### C MP #### [facility] [address] [place] [address] Dr. Jeffrey Thomas Neutrophils/100 WBC (Bld) 50.0 % Normal 43.0-75.0 [facility] Comment on above: Performed By: #### C MP #### [facility] [address] [place] [address] Dr. Jeffrey Thomas Platelet mean volume (Bld) [Entitic vol] 12.0 fL Normal 9.5-13.5 [facility] Comment on above: Performed By: #### C MP #### [facility] [address] [address] [address] Jeffrey Thomas PLT 199 103/ul Normal 150-450 [facility] Comment on above: Performed By: #### C MP #### [facility] [address] [address] [address] Jeffrey Thomas RBC 3.81 106/ul Critically low 4.20-5.40 [facility] Comment on above: Performed By: #### C MP #### [facility] [address] [address] [address] Jeffrey Thomas WBC 5.7 103/ul Normal 4.0-11.0 [facility] Comment on above: Performed By: #### C MP #### [facility] [address] [place] [address] Dr. Jeffrey Thomas LACTATE/LACTIC ACIDon 2022 Lactate [Moles/Vol] 0.6 mmol/L Normal 0.4-2.0 [facility] Comment on above: Performed By: #### C MP #### [facility] [address] [address] [address] Jeffrey Thomas Lactate [Moles/Vol] 2.8 mmol/L Critically high 0.4-2.0 [facility] Comment on above: Performed By: #### T 4LC #### [facility] [address] [place] [address] Dr. Jeffrey Thomas PROF 14(COMP METB)on 023 Albumin [Mass/Vol] 2.8 g/dL Critically low 3.4-5.0 [facility] Comment on above: Performed By: #### C MP #### [facility] [address] [place] [address] Dr. Jeffrey Thomas Albumin/Globulin [Mass ratio] 0.9 {ratio} Normal [facility] Comment on above: Performed By: #### C MP #### [facility] [address] [address] [address] Jeffrey Thomas ALP [Catalytic activity/Vol] 100 U/L Normal 46-116 [facility] Comment on above: Performed By: #### C MP #### [facility] [address] [address] [address] Jeffrey Thomas ALT [Catalytic activity/Vol] 102 U/L Critically high 14-59 [facility] Comment on above: Performed By: #### C MP #### [facility] [address] [address] [address] Jeffrey Thomas Anion gap [Moles/Vol] 17.0 mmol/L Normal [facility] Comment on above: Performed By: #### C MP #### [facility] [address] [place] [address] Dr. Jeffrey Thomas AST [Catalytic activity/Vol] 62 U/L Critically high 15-37 [facility] Comment on above: Performed By: #### C MP #### [facility] [address] [address] [address] Jeffrey Thomas Bilirubin [Mass/Vol] 0.3 mg/dL Normal 0.2-1.0 [facility] Comment on above: Performed By: #### C MP #### [facility] [address] [place] [address] Dr. Jeffrey Thomas Calcium [Mass/Vol] 8.1 mg/dL Critically low 8.5-10.1 [facility] Comment on above: Performed By: #### C MP #### [facility] [address] [place] [address] Dr. Jeffrey Thomas Chloride [Moles/Vol] 110 mmol/L Critically high 98-107 [facility] Comment on above: Performed By: #### C MP #### [facility] [address] [address] [address] Jeffrey Thomas CO2 [Moles/Vol] 18.6 mmol/L Critically low 21.0-32.0 [facility] Comment on above: Performed By: #### C MP #### [facility] [address] [place] [address] Dr. Jeffrey Thomas Creatinine [Mass/Vol] 1.43 mg/dL Critically high 0.55-1.02 [facility] Comment on above: Performed By: #### C MP #### [facility] [address] [address] [address] Jeffrey Thoams EGFR-AF VINCENTIAN 45 mL/min/1.73m2 Critically low >=60 [facility] Comment on above: Performed By: #### C MP #### [facility] [address] [address] [address] Jeffrey Thomas EGFR-NON AF VINCENTIAN 37 mL/min/1.73m2 Critically low >=60 [facility] Comment on above: Performed By: #### C MP #### [facility] [address] [place] [address] Dr. Jeffrey Thomas Globulin (S) [Mass/Vol] 3.0 g/dL Normal [facility] Comment on above: Performed By: #### C MP #### [facility] [address] [address] [address] Jeffrey Thomas Glucose [Mass/Vol] 141 mg/dL Critically high 74-106 [facility] Comment on above: Performed By: #### C MP #### [facility] [address] [place] [address] Dr. Jeffrey Thomas Potassium [Moles/Vol] 3.6 mmol/L Normal 3.5-5.1 [facility] Comment on above: Performed By: #### C MP #### [facility] [address] [address] [address] Jeffrey Thomas Protein [Mass/Vol] 5.8 g/dL Critically low 6.4-8.2 [facility] Comment on above: Performed By: #### C MP #### [facility] [address] [place] [address] Dr. Jeffrey Thomas Sodium [Moles/Vol] 142 mmol/L Normal 136-145 [facility] Comment on above: Performed By: #### C MP #### [facility] [address] [place] [address] Dr. Jeffrey Thomas Urea nitrogen [Mass/Vol] 22.0 mg/dL Critically high 7.0-18.0 [facility] Comment on above: Performed By: #### C ALE #### [facility] [address] [place] [address] Dr. Jeffrey Thomas Urea nitrogen/Creatinine [Mass ratio] 15.4 mg/mg Normal [facility] Comment on above: Performed By: #### C ALE #### [facility] [address] [place] [address] Dr. Jeffrey Thomas AMYLASEon 08-26-2022 Amylase [Catalytic activity/Vol] 40 U/L Normal 25-115 [facility] Comment on above: Performed By: #### C ALE #### [facility] [address] [place] [address] Dr. Jeffrey Thomas CARDIAC CHONG ADMITon 023 CK [Catalytic activity/Vol] 39 U/L Normal 26-192 [facility] Comment on above: Performed By: #### C JUANITO AGUILERA #### [facility] [address] [place] [address] Dr. Jeffrey Thomas CK.MB [Mass/Vol] 1.47 ng/mL Normal <=3.60 [facility] Comment on above: Performed By: #### C JUANITO AGUILERA #### [facility] [address] [place] [address] Dr. Jeffrey Thomas HSTROP 7.0 pg/mL Normal 4.0-51.3 [facility] Comment on above: Result Comment: CUT- OFF POINTS HAVE BEEN ESTABLISHED BASED ON THE FOURTH UNIVERSAL DEFINITIONS OF MYOCARDIAL INFARCTION. THE UPPER REFERENCE LIMIT (URL) OF TROPONIN, DEFINED THE 99TH PERCENTILE OF cTnI DISTRIBUTION IN A REFERENCE POPULATION, HAS BEEN CONFIRMED THE DECISION THRESHOLD FOR [place] DIAGNOSIS. Performed By: #### C JUANITO AGUILERA #### [facility] [address] [place] [address] Dr. Jeffrey Thomas SHONNA 107 ng/mL Critically high 9-82 [facility] Comment on above: Performed By: #### C JUANITO AGUILERA #### [facility] [address] [place] [address] Dr. Jeffrey Thomas CBC AUTO DIFFon 08-26-2022 BASO # 0.1 103/ul Normal 0.0-0.1 [facility] Comment on above: Performed By: #### C MP #### [facility] [address] [address] [address] Jeffrey Thomas Basophils/100 WBC (Bld) 0.9 % Normal 0.2-2.0 [facility] Comment on above: Performed By: #### C MP #### [facility] [address] [address] [address] Jeffrey Thomas EO # 0.1 103/ul Normal 0.0-0.7 [facility] Comment on above: Performed By: #### C MP #### [facility] [address] [place] [address] Dr. Jeffrey Thomas Eosinophils/100 WBC (Bld) 0.9 % Normal 0.9-7.0 [facility] Comment on above: Performed By: #### C MP #### [facility] [address] [place] [address] Dr. Jeffrey Thomas Erythrocyte distribution width (RBC) [Ratio] 14.1 % Normal 11.0-15.0 [facility] Comment on above: Performed By: #### C MP #### [facility] [address] [place] [address] Dr. Jeffrey Thomas Hematocrit (Bld) [Volume fraction] 48.3 % Critically high 36.0-48.0 [facility] Comment on above: Performed By: #### C MP #### [facility] [address] [place] [address] Dr. Jeffrey Thomas Hemoglobin (Bld) [Mass/Vol] 15.4 g/dL Normal 12.0-16.0 [facility] Comment on above: Performed By: #### C MP #### [facility] [address] [place] [address] Dr. Jeffrey Thomas IG # 0.04 10e3/ul Critically high 0.00-0.03 [facility] Comment on above: Performed By: #### C MP #### [facility] [address] [place] [address] Dr. Jeffrey Thomas IG % 0.3 % Normal 0.0-0.5 [facility] Comment on above: Performed By: #### C MP #### [facility] [address] [place] [address] Dr. Jeffrey Thomas LYMPH # 1.2 103/ul Normal 1.2-3.8 [facility] Comment on above: Performed By: #### C MP #### [facility] [address] [place] [address] Dr. Jeffrey Thomas Lymphocytes/100 WBC (Bld) 10.0 % Critically low 20.5-60.0 [facility] Comment on above: Performed By: #### C MP #### [facility] [address] [place] [address] Dr. Jeffrey Thomas MANUAL DIFF REQ NO Normal [facility] Comment on above: Performed By: #### C MP #### [facility] [address] [place] [address] Dr. Jeffrey Thomas MCH (RBC) [Entitic mass] 29.7 pg Normal 26.7-34.0 [facility] Comment on above: Performed By: #### C MP #### [facility] [address] [place] [address] Dr. Jeffrey Thomas MCHC (RBC) [Mass/Vol] 31.9 g/dL Normal 29.9-35.2 [facility] Comment on above: Performed By: #### C MP #### [facility] [address] [place] [address] Dr. Jeffrey Thomas MCV (RBC) [Entitic vol] 93.1 fL Normal 81.0-99.0 [facility] Comment on above: Performed By: #### C MP #### [facility] [address] [place] [address] Dr. Jeffrey Thomas MONO # 0.5 103/ul Normal 0.3-0.8 [facility] Comment on above: Performed By: #### C MP #### [facility] [address] [place] [address] Dr. Jeffrey Thomas Monocytes/100 WBC (Bld) 4.1 % Normal 1.7-12.0 [facility] Comment on above: Performed By: #### C MP #### [facility] [address] [place] [address] Dr. Jeffrey Thomas NEUT # 10.2 103/ul Critically high 1.4-6.5 [facility] Comment on above: Performed By: #### C MP #### [facility] [address] [place] [address] Dr. Jeffrey Thomas Neutrophils/100 WBC (Bld) 83.8 % Critically high 43.0-75.0 [facility] Comment on above: Performed By: #### C MP #### [facility] [address] [place] [address] Dr. Jeffrey Thomas Platelet mean volume (Bld) [Entitic vol] 12.2 fL Normal 9.5-13.5 [facility] Comment on above: Performed By: #### C MP #### [facility] [address] [place] [address] Dr. Jeffrey Thomas PLT 303 103/ul Normal 150-450 [facility] Comment on above: Performed By: #### C MP #### [facility] [address] [place] [address] Dr. Jeffrey Thomas RBC 5.19 106/ul Normal 4.20-5.40 [facility] Comment on above: Performed By: #### C MP #### [facility] [address] [place] [address] Dr. Jeffrey Thomas WBC 12.2 103/ul Critically high 4.0-11.0 [facility] Comment on above: Performed By: #### C MP #### [facility] [address] [place] [address] ABD/PELVIS WO CONon [...] by: SALVADOR POTTS Date: 2022-08-26 15:43 Normal [facility] LIPASEon 08-26-2022 Lipase [Catalytic activity/Vol] 27.0 U/L Critically low 73.0-393.0 [facility] Comment on above: Performed By: #### L ACT #### [facility] [address] [place] [address] Dr. Jeffrey Thomas PROF 14(COMP METB)on 023 Albumin [Mass/Vol] 3.7 g/dL Normal 3.4-5.0 [facility] Comment on above: Performed By: #### C JUANITO AGUILERA #### [facility] [address] [address] [address] Jeffrey Thomas Albumin/Globulin [Mass ratio] 0.9 {ratio} Normal [facility] Comment on above: Performed By: #### C JUANITO AGUILERA #### [facility] [address] [address] [address] Jeffrey Thomas ALP [Catalytic activity/Vol] 138 U/L Critically high 46-116 [facility] Comment on above: Performed By: #### C MP, CMADM #### [facility] [address] [address] [address] Jeffrey Thomas ALT [Catalytic activity/Vol] 174 U/L Critically high 14-59 [facility] Comment on above: Performed By: #### C MP, CMADM #### [facility] [address] [address] [address] Jeffrey Thomas Anion gap [Moles/Vol] 20.4 mmol/L Normal [facility] Comment on above: Performed By: #### C MP, CMADM #### [facility] [address] [address] [address] Jeffrey Thomas AST [Catalytic activity/Vol] 135 U/L Critically high 15-37 [facility] Comment on above: Performed By: #### C ALE, CMADM #### [facility] [address] [address] [address] Jeffrey Thomas Bilirubin [Mass/Vol] 0.4 mg/dL Normal 0.2-1.0 [facility] Comment on above: Performed By: #### C ALE, CMADM #### [facility] [address] [address] [address] Jeffrey Thomas Calcium [Mass/Vol] 9.1 mg/dL Normal 8.5-10.1 [facility] Comment on above: Performed By: #### C ALE, CMADM #### [facility] [address] [address] [address] Jeffrey Thomas Chloride [Moles/Vol] 103 mmol/L Normal 98-107 [facility] Comment on above: Performed By: #### C MP, CMADM #### [facility] [address] [address] [address] Jeffrey Thomas CO2 [Moles/Vol] 18.5 mmol/L Critically low 21.0-32.0 [facility] Comment on above: Performed By: #### C ALE, CMADM #### [facility] [address] [address] [address] Jeffrey Thomas Creatinine [Mass/Vol] 1.85 mg/dL Critically high 0.55-1.02 [facility] Comment on above: Performed By: #### C MP, CMADM #### [facility] [address] [address] [address] Jeffrey Thomas EGFR-AF VINCENTIAN 33 mL/min/1.73m2 Critically low >=60 [facility] Comment on above: Performed By: #### C MP, CMADM #### [facility] [address] [address] [address] Jeffrey Thomas EGFR-NON AF VINCENTIAN 27 mL/min/1.73m2 Critically low >=60 [facility] Comment on above: Performed By: #### C MP, CMADM #### [facility] [address] [place] [address] Dr. Jeffrey Thomas Globulin (S) [Mass/Vol] 4.0 g/dL Normal [facility] Comment on above: Performed By: #### C MP, CMADM #### [facility] [address] [address] [address] Jeffrey Thomas Glucose [Mass/Vol] 110 mg/dL Critically high 74-106 [facility] Comment on above: Performed By: #### C MP, CMADM #### [facility] [address] [place] [address] Dr. Jeffrey Thomas Potassium [Moles/Vol] 3.9 mmol/L Normal 3.5-5.1 [facility] Comment on above: Performed By: #### C MP, CMADM #### [facility] [address] [place] [address] Dr. Jeffrey Thomas Protein [Mass/Vol] 7.7 g/dL Normal 6.4-8.2 [facility] Comment on above: Performed By: #### C MP, CMADM #### [facility] [address] [place] [address] Dr. Jeffrey Thomas Sodium [Moles/Vol] 138 mmol/L Normal 136-145 [facility] Comment on above: Performed By: #### C MP, CMADM #### [facility] [address] [place] [address] Dr. Jeffrey Thomas Urea nitrogen [Mass/Vol] 32.0 mg/dL Critically high 7.0-18.0 [facility] Comment on above: Performed By: #### C JUANITO AGUILERA #### [facility] [address] [address] [address] Jeffrey Thomas Urea nitrogen/Creatinine [Mass ratio] 17.3 mg/mg Normal [facility] Comment on above: Performed By: #### C JUANITO AGUILERA #### [facility] [address] [address] [address] Jeffrey Thomas US SINGLE QUAD RT [...] LIDIA COLÓN Date: 2022-08-26 20:40 Normal [facility] CBC AUTO DIFFon 08-01-2022 BASO # 0.1 103/ul Normal 0.0-0.1 [facility] Comment on above: Performed By: #### T 4LC #### [facility] [address] [place] [address] Dr. Jeffrey Thomas Basophils/100 WBC (Bld) 1.3 % Normal 0.2-2.0 [facility] Comment on above: Performed By: #### T 4LC #### [facility] [address] [place] [address] Dr. Jeffrey Thomas EO # 0.2 103/ul Normal 0.0-0.7 [facility] Comment on above: Performed By: #### T 4LC #### [facility] [address] [place] [address] Dr. Jeffrey Thomas Eosinophils/100 WBC (Bld) 2.8 % Normal 0.9-7.0 [facility] Comment on above: Performed By: #### T 4LC #### [facility] [address] [place] [address] Dr. Jeffrey Thomas Erythrocyte distribution width (RBC) [Ratio] 15.9 % Critically high 11.0-15.0 [facility] Comment on above: Performed By: #### T 4LC #### [facility] [address] [place] [address] Dr. Jeffrey Thomas Hematocrit (Bld) [Volume fraction] 37.7 % Normal 36.0-48.0 [facility] Comment on above: Performed By: #### T 4LC #### [facility] [address] [place] [address] Dr. Jeffrey Thomas Hemoglobin (Bld) [Mass/Vol] 11.5 g/dL Critically low 12.0-16.0 [facility] Comment on above: Performed By: #### T 4LC #### [facility] [address] [place] [address] Dr. Jeffrey Thomas IG # 0.03 10e3/ul Normal 0.00-0.03 [facility] Comment on above: Performed By: #### T 4LC #### [facility] [address] [place] [address] Dr. Jeffrey Thomas IG % 0.4 % Normal 0.0-0.5 [facility] Comment on above: Performed By: #### T 4LC #### [facility] [address] [place] [address] Dr. Jeffrey Thomas LYMPH # 1.6 103/ul Normal 1.2-3.8 [facility] Comment on above: Performed By: #### T 4LC #### [facility] [address] [place] [address] Dr. Jeffrey Thomas Lymphocytes/100 WBC (Bld) 20.9 % Normal 20.5-60.0 [facility] Comment on above: Performed By: #### T 4LC #### [facility] [address] [place] [address] Dr. Jeffrey Thomas MANUAL DIFF REQ NO Normal [facility] Comment on above: Performed By: #### T 4LC #### [facility] [address] [place] [address] Dr. Jeffrey Thomas MCH (RBC) [Entitic mass] 30.0 pg Normal 26.7-34.0 [facility] Comment on above: Performed By: #### T 4LC #### [facility] [address] [place] [address] Dr. Jeffrey Thomas MCHC (RBC) [Mass/Vol] 30.5 g/dL Normal 29.9-35.2 [facility] Comment on above: Performed By: #### T 4LC #### [facility] [address] [place] [address] Dr. Jeffrey Thomas MCV (RBC) [Entitic vol] 98.4 fL Normal 81.0-99.0 [facility] Comment on above: Performed By: #### T 4LC #### [facility] [address] [place] [address] Dr. Jeffrey Thomas MONO # 0.7 103/ul Normal 0.3-0.8 [facility] Comment on above: Performed By: #### T 4LC #### [facility] [address] [place] [address] Dr. Jeffrey Thomas Monocytes/100 WBC (Bld) 8.7 % Normal 1.7-12.0 [facility] Comment on above: Performed By: #### T 4LC #### [facility] [address] [place] [address] Dr. Jeffrey Thomas NEUT # 5.2 103/ul Normal 1.4-6.5 [facility] Comment on above: Performed By: #### T 4LC #### [facility] [address] [place] [address] Dr. Jeffrey Thomas Neutrophils/100 WBC (Bld) 65.9 % Normal 43.0-75.0 [facility] Comment on above: Performed By: #### T 4LC #### [facility] [address] [place] [address] Dr. Jeffrey Thomas Platelet mean volume (Bld) [Entitic vol] 11.8 fL Normal 9.5-13.5 [facility] Comment on above: Performed By: #### T 4LC #### [facility] [address] [place] [address] Dr. Jeffrey Thomas PLT 265 103/ul Normal 150-450 [facility] Comment on above: Performed By: #### T 4LC #### [facility] [address] [place] [address] Dr. Jeffrey Thomas RBC 3.83 106/ul Critically low 4.20-5.40 [facility] Comment on above: Performed By: #### T 4LC #### [facility] [address] [place] [address] Dr. Jeffrey Thomas WBC 7.8 103/ul Normal 4.0-11.0 [facility] Comment on above: Performed By: #### T 4LC #### [facility] [address] [place] [address] Dr. Jeffrey Thomas CULTURE BLOODon 08-01-2022 Microscopic examination of blood, culture Culture Observations: NO GROWTH AT 5 DAYS. Normal [facility] Comment on above: Performed By: #### A MM #### [facility] [address] [place] [address] Dr. Jeffrey Thomas PROF 14(COMP METB)on 023 Albumin [Mass/Vol] 3.4 g/dL Normal 3.4-5.0 [facility] Comment on above: Performed By: #### C MP #### [facility] [address] [place] [address] Dr. Jeffrey Thomas Albumin/Globulin [Mass ratio] 0.8 {ratio} Normal [facility] Comment on above: Performed By: #### C MP #### [facility] [address] [place] [address] Dr. Jeffrey Thomas ALP [Catalytic activity/Vol] 98 U/L Normal 46-116 [facility] Comment on above: Performed By: #### C MP #### [facility] [address] [place] [address] Dr. Jeffrey Thomas ALT [Catalytic activity/Vol] 18 U/L Normal 14-59 [facility] Comment on above: Performed By: #### C MP #### [facility] [address] [place] [address] Dr. Jeffrey Thomas Anion gap [Moles/Vol] 13.3 mmol/L Normal [facility] Comment on above: Performed By: #### C MP #### [facility] [address] [place] [address] Dr. Jeffrey Thomas AST [Catalytic activity/Vol] 21 U/L Normal 15-37 [facility] Comment on above: Performed By: #### C MP #### [facility] [address] [place] [address] Dr. Jeffrey Thomas Bilirubin [Mass/Vol] 0.2 mg/dL Normal 0.2-1.0 [facility] Comment on above: Performed By: #### C MP #### [facility] [address] [place] [address] Dr. Jeffrey Thomas Calcium [Mass/Vol] 9.2 mg/dL Normal 8.5-10.1 [facility] Comment on above: Performed By: #### C MP #### [facility] [address] [place] [address] Dr. Jeffrey Thomas Chloride [Moles/Vol] 106 mmol/L Normal 98-107 [facility] Comment on above: Performed By: #### C MP #### [facility] [address] [address] [address] Jeffrey Thomas CO2 [Moles/Vol] 23.8 mmol/L Normal 21.0-32.0 [facility] Comment on above: Performed By: #### C MP #### [facility] [address] [address] [address] Jeffrey Thomas Creatinine [Mass/Vol] 1.07 mg/dL Critically high 0.55-1.02 [facility] Comment on above: Performed By: #### C MP #### [facility] [address] [address] [address] Jeffrey Thomas EGFR-AF VINCENTIAN >60 Normal >=60 [facility] Comment on above: Performed By: #### C MP #### [facility] [address] [address] [address] Jeffrey Thomas EGFR-NON AF VINCENTIAN 51 mL/min/1.73m2 Critically low >=60 [facility] Comment on above: Performed By: #### C MP #### [facility] [address] [address] [address] Jeffrey Thomas Globulin (S) [Mass/Vol] 4.1 g/dL Normal [facility] Comment on above: Performed By: #### C MP #### [facility] [address] [address] [address] Jeffrey Thomas Glucose [Mass/Vol] 77 mg/dL Normal 74-106 [facility] Comment on above: Performed By: #### C MP #### [facility] [address] [address] [address] Jeffrey Thomas Potassium [Moles/Vol] 5.1 mmol/L Normal 3.5-5.1 [facility] Comment on above: Performed By: #### C MP #### [facility] [address] [address] [address] Jeffrey Thomas Protein [Mass/Vol] 7.5 g/dL Normal 6.4-8.2 [facility] Comment on above: Performed By: #### C MP #### [facility] [address] [address] [address] Jeffrey Thomas Sodium [Moles/Vol] 138 mmol/L Normal 136-145 [facility] Comment on above: Performed By: #### C MP #### [facility] [address] [place] [address] Dr. Jeffrey Thomas Urea nitrogen [Mass/Vol] 36.0 mg/dL Critically high 7.0-18.0 [facility] Comment on above: Performed By: #### C MP #### [facility] [address] [place] [address] Dr. Jeffrey Thomas Urea nitrogen/Creatinine [Mass ratio] 33.6 mg/mg Normal [facility] Comment on above: Performed By: #### C MP #### [facility] [address] [place] [address] Dr. Jeffrey Thomas SED RATE WESTERGRENon 2022 SED RATE 42 mm/hr Critically high <=30 [facility] Comment on above: Performed By: #### C MP #### [facility] [address] [place] [address] Dr. Jeffrey Thomas AMMONIAon 05-23-2022 Ammonia (P) [Moles/Vol] 18 umol/L Normal 11-32 [facility] Comment on above: Performed By: #### C MP #### [facility] [address] [place] [address] Dr. Jeffrey Thomas AMYLASEon 05-23-2022 Amylase [Catalytic activity/Vol] 30 U/L Normal 25-115 [facility] Comment on above: Performed By: #### A MM #### [facility] [address] [place] [address] Dr. Jeffrey Thomas BNPon 05-23-2022 Natriuretic peptide B (Bld) [Mass/Vol] 1066.0 pg/mL Critically high <=900.0 [facility] Comment on above: Performed By: #### A MM #### [facility] [address] [place] [address] Dr. Jeffrey Thomas CBC AUTO DIFFon 05-23-2022 BASO # 0.1 103/ul Normal 0.0-0.1 [facility] Comment on above: Performed By: #### C MP #### [facility] [address] [place] [address] Dr. Jeffrey Thomas Basophils/100 WBC (Bld) 1.1 % Normal 0.2-2.0 [facility] Comment on above: Performed By: #### C MP #### [facility] [address] [place] [address] Dr. Jeffrey Thomas EO # 0.2 103/ul Normal 0.0-0.7 [facility] Comment on above: Performed By: #### C MP #### [facility] [address] [place] [address] Dr. Jeffrey Thomas Eosinophils/100 WBC (Bld) 3.1 % Normal 0.9-7.0 [facility] Comment on above: Performed By: #### C MP #### [facility] [address] [place] [address] Dr. Jeffrey Thomas Erythrocyte distribution width (RBC) [Ratio] 17.2 % Critically high 11.0-15.0 [facility] Comment on above: Performed By: #### C MP #### [facility] [address] [place] [address] Dr. Jeffrey Thomas Hematocrit (Bld) [Volume fraction] 33.0 % Critically low 36.0-48.0 [facility] Comment on above: Performed By: #### C MP #### [facility] [address] [place] [address] Dr. Jeffrey Thomas Hemoglobin (Bld) [Mass/Vol] 10.3 g/dL Critically low 12.0-16.0 [facility] Comment on above: Performed By: #### C MP #### [facility] [address] [place] [address] Dr. Jeffrey Thomas IG # 0.02 10e3/ul Normal 0.00-0.03 [facility] Comment on above: Performed By: #### C MP #### [facility] [address] [place] [address] Dr. Jeffrey Thomas IG % 0.3 % Normal 0.0-0.5 [facility] Comment on above: Performed By: #### C MP #### [facility] [address] [place] [address] Dr. Jeffrey Thomas LYMPH # 1.8 103/ul Normal 1.2-3.8 [facility] Comment on above: Performed By: #### C MP #### [facility] [address] [place] [address] Dr. Jeffrey Thomas Lymphocytes/100 WBC (Bld) 27.8 % Normal 20.5-60.0 [facility] Comment on above: Performed By: #### C MP #### [facility] [address] [place] [address] Dr. Jeffrey Thomas MANUAL DIFF REQ NO Normal [facility] Comment on above: Performed By: #### C MP #### [facility] [address] [place] [address] Dr. Jeffrey Thomas MCH (RBC) [Entitic mass] 28.4 pg Normal 26.7-34.0 [facility] Comment on above: Performed By: #### C MP #### [facility] [address] [place] [address] Dr. Jeffrey Thomas MCHC (RBC) [Mass/Vol] 31.2 g/dL Normal 29.9-35.2 [facility] Comment on above: Performed By: #### C MP #### [facility] [address] [place] [address] Dr. Jeffrey Thomas MCV (RBC) [Entitic vol] 90.9 fL Normal 81.0-99.0 [facility] Comment on above: Performed By: #### C MP #### [facility] [address] [place] [address] Dr. Jeffrey Thomas MONO # 0.4 103/ul Normal 0.3-0.8 [facility] Comment on above: Performed By: #### C MP #### [facility] [address] [place] [address] Dr. Jeffrey Thomas Monocytes/100 WBC (Bld) 6.7 % Normal 1.7-12.0 [facility] Comment on above: Performed By: #### C MP #### [facility] [address] [address] [address] Jeffrey Thomas NEUT # 4.0 103/ul Normal 1.4-6.5 [facility] Comment on above: Performed By: #### C MP #### [facility] [address] [address] [address] Jeffrey Thomas Neutrophils/100 WBC (Bld) 61.0 % Normal 43.0-75.0 [facility] Comment on above: Performed By: #### C MP #### [facility] [address] [address] [address] Jeffrey Thomas Platelet mean volume (Bld) [Entitic vol] 10.4 fL Normal 9.5-13.5 [facility] Comment on above: Performed By: #### C MP #### [facility] [address] [address] [address] Jeffrey Thomas PLT 218 103/ul Normal 150-450 [facility] Comment on above: Performed By: #### C MP #### [facility] [address] [place] [address] Dr. Jeffrey Thomas RBC 3.63 106/ul Critically low 4.20-5.40 [facility] Comment on above: Performed By: #### C MP #### [facility] [address] [place] [address] Dr. Jeffrey Thomas WBC 6.5 103/ul Normal 4.0-11.0 [facility] Comment on above: Performed By: #### C MP #### [facility] [address] [place] [address] Dr. Jeffrey Thomas MAGNESIUMon 05-23-2022 Magnesium [Mass/Vol] 1.4 mg/dL Critically low 1.8-2.4 [facility] Comment on above: Performed By: #### A MM #### [facility] [address] [place] [address] Dr. Jeffrey Thomas PROF 14(COMP METB)on 023 Albumin [Mass/Vol] 2.8 g/dL Critically low 3.4-5.0 [facility] Comment on above: Performed By: #### A MM #### [facility] [address] [place] [address] Dr. Jeffrey Thomas Albumin/Globulin [Mass ratio] 1.0 {ratio} Normal [facility] Comment on above: Performed By: #### A MM #### [facility] [address] [place] [address] Dr. Jeffrey Thomas ALP [Catalytic activity/Vol] 113 U/L Normal 46-116 [facility] Comment on above: Performed By: #### A MM #### [facility] [address] [place] [address] Dr. Jeffrey Thomas ALT [Catalytic activity/Vol] 14 U/L Normal 14-59 [facility] Comment on above: Performed By: #### A MM #### [facility] [address] [place] [address] Dr. Jeffrey Thomas Anion gap [Moles/Vol] 15.0 mmol/L Normal Th [facility] Comment on above: Performed By: #### A MM #### [facility] [address] [place] [address] Dr. Jeffrey Thomas AST [Catalytic activity/Vol] 18 U/L Normal 15-37 [facility] Comment on above: Performed By: #### A MM #### [facility] [address] [place] [address] Dr. Jeffrey Thomas Bilirubin [Mass/Vol] 0.5 mg/dL Normal 0.2-1.0 [facility] Comment on above: Performed By: #### A MM #### [facility] [address] [place] [address] Dr. Jeffrey Thomas Calcium [Mass/Vol] 8.3 mg/dL Critically low 8.5-10.1 [facility] Comment on above: Performed By: #### A MM #### [facility] [address] [place] [address] Dr. Jeffrey Thomas Chloride [Moles/Vol] 106 mmol/L Normal 98-107 [facility] Comment on above: Performed By: #### A MM #### [facility] [address] [address] [address] Jeffrey Thomas CO2 [Moles/Vol] 21.2 mmol/L Normal 21.0-32.0 [facility] Comment on above: Performed By: #### A MM #### [facility] [address] [address] [address] Jeffrey Thomas Creatinine [Mass/Vol] 1.02 mg/dL Normal 0.55-1.02 [facility] Comment on above: Performed By: #### A MM #### [facility] [address] [address] [address] Jeffrey Thomas EGFR-AF VINCENTIAN >60 Normal >=60 [facility] Comment on above: Performed By: #### A MM #### [facility] [address] [place] [address] Dr. Jeffrey Thomas EGFR-NON AF VINCENTIAN 54 mL/min/1.73m2 Critically low >=60 [facility] Comment on above: Performed By: #### A MM #### [facility] [address] [place] [address] Dr. Jeffrey Thomas Globulin (S) [Mass/Vol] 2.8 g/dL Normal [facility] Comment on above: Performed By: #### A MM #### [facility] [address] [place] [address] Dr. Jeffrey Thomas Glucose [Mass/Vol] 85 mg/dL Normal 74-106 [facility] Comment on above: Performed By: #### A MM #### [facility] [address] [place] [address] Dr. Jeffrey Thomas Potassium [Moles/Vol] 4.2 mmol/L Normal 3.5-5.1 [facility] Comment on above: Performed By: #### A MM #### [facility] [address] [place] [address] Dr. Jeffrey Thomas Protein [Mass/Vol] 5.6 g/dL Critically low 6.4-8.2 [facility] Comment on above: Performed By: #### A MM #### [facility] [address] [place] [address] Dr. Jeffrey Thomas Sodium [Moles/Vol] 138 mmol/L Normal 136-145 [facility] Comment on above: Performed By: #### A MM #### [facility] [address] [place] [address] Dr. Jeffrey Thomas Urea nitrogen [Mass/Vol] 17.0 mg/dL Normal 7.0-18.0 [facility] Comment on above: Performed By: #### A MM #### [facility] [address] [place] [address] Dr. Jeffrey Thomas Urea nitrogen/Creatinine [Mass ratio] 16.7 mg/mg Normal [facility] Comment on above: Performed By: #### A MM #### [facility] [address] [place] [address] Dr. Jeffrey Thomas BNPon 05-22-2022 Natriuretic peptide B (Bld) [Mass/Vol] 1738.0 pg/mL Critically high <=900.0 [facility] Comment on above: Performed By: #### C MP #### [facility] [address] [place] [address] Dr. Jeffrey Thomas CBC AUTO DIFFon 05-22-2022 BASO # 0.1 103/ul Normal 0.0-0.1 [facility] Comment on above: Performed By: #### C MP #### [facility] [address] [place] [address] Dr. Jeffrey Thomas Basophils/100 WBC (Bld) 1.0 % Normal 0.2-2.0 [facility] Comment on above: Performed By: #### C MP #### [facility] [address] [place] [address] Dr. Jeffrey Thomas EO # 0.1 103/ul Normal 0.0-0.7 [facility] Comment on above: Performed By: #### C MP #### [facility] [address] [place] [address] Dr. Jeffrey Thomas Eosinophils/100 WBC (Bld) 1.0 % Normal 0.9-7.0 [facility] Comment on above: Performed By: #### C MP #### [facility] [address] [place] [address] Dr. Jeffrey Thomas Erythrocyte distribution width (RBC) [Ratio] 17.2 % Critically high 11.0-15.0 [facility] Comment on above: Performed By: #### C MP #### [facility] [address] [place] [address] Dr. Jeffrey Thomas Hematocrit (Bld) [Volume fraction] 36.8 % Normal 36.0-48.0 [facility] Comment on above: Performed By: #### C MP #### [facility] [address] [place] [address] Dr. Jeffrey Thomas Hemoglobin (Bld) [Mass/Vol] 11.8 g/dL Critically low 12.0-16.0 [facility] Comment on above: Performed By: #### C MP #### [facility] [address] [place] [address] Dr. Jeffrey Thomas IG # 0.01 10e3/ul Normal 0.00-0.03 [facility] Comment on above: Performed By: #### C MP #### [facility] [address] [place] [address] Dr. Jeffrey Thomas IG % 0.2 % Normal 0.0-0.5 [facility] Comment on above: Performed By: #### C MP #### [facility] [address] [place] [address] Dr. Jeffrey Thomas LYMPH # 1.4 103/ul Normal 1.2-3.8 [facility] Comment on above: Performed By: #### C MP #### [facility] [address] [place] [address] Dr. Jeffrey Thomas Lymphocytes/100 WBC (Bld) 28.2 % Normal 20.5-60.0 [facility] Comment on above: Performed By: #### C MP #### [facility] [address] [place] [address] Dr. Jeffrey Thomas MANUAL DIFF REQ NO Normal [facility] Comment on above: Performed By: #### C MP #### [facility] [address] [address] [address] Jeffrey Thomas MCH (RBC) [Entitic mass] 29.0 pg Normal 26.7-34.0 [facility] Comment on above: Performed By: #### C MP #### [facility] [address] [place] [address] Dr. Jeffrey Thomas MCHC (RBC) [Mass/Vol] 32.1 g/dL Normal 29.9-35.2 [facility] Comment on above: Performed By: #### C MP #### [facility] [address] [place] [address] Dr. Jeffrey Thomas MCV (RBC) [Entitic vol] 90.4 fL Normal 81.0-99.0 [facility] Comment on above: Performed By: #### C MP #### [facility] [address] [place] [address] Dr. Jeffrey Thomas MONO # 0.4 103/ul Normal 0.3-0.8 [facility] Comment on above: Performed By: #### C MP #### [facility] [address] [place] [address] Dr. Jeffrey Thomas Monocytes/100 WBC (Bld) 7.3 % Normal 1.7-12.0 [facility] Comment on above: Performed By: #### C MP #### [facility] [address] [place] [address] Dr. Jeffrey Thomas NEUT # 3.0 103/ul Normal 1.4-6.5 [facility] Comment on above: Performed By: #### C MP #### [facility] [address] [place] [address] Dr. Jeffrey Thomas Neutrophils/100 WBC (Bld) 62.3 % Normal 43.0-75.0 [facility] Comment on above: Performed By: #### C MP #### [facility] [address] [place] [address] Dr. Jeffrey Thomas Platelet mean volume (Bld) [Entitic vol] 10.4 fL Normal 9.5-13.5 [facility] Comment on above: Performed By: #### C MP #### [facility] [address] [place], [place] [address] Dr. Jeffrey Thomas PLT 254 103/ul Normal 150-450 [facility] Comment on above: Performed By: #### C MP #### [facility] [id number] Jeffrey Thomas RBC 4.07 106/ul Critically low 4.20-5.40 [facility] Comment on above: Performed By: #### C MP #### [facility] [id number] Jeffrey Thomas WBC 4.8 103/ul Normal 4.0-11.0 [facility] Comment on above: Performed By: #### C MP #### [facility] [id number] Jeffrey Thomas CT ABD/PELVIS WO CONon [...] SALOME JOLLY Date: 2022-05-22 15:45 Normal [facility] CULTURE URINEon 05-22-2022 CULTURE URINE Culture Observations : LIGHT GROWTH OF MIXED GENITAL CANDIDA. NO POTENTIAL PATHOGENS SEEN. Normal [facility] Comment on above: Performed By: #### A MM #### [facility] [address] [place] [address] Dr. Jeffrey Thomas [facility]04 SARS-CoV-2 (COVID-19) RNA REBECCA+probe Ql (Unsp spec) Not detected Normal NOT DETECTED [facility] Comment on above: Result Comment: [...] for this test is supported by the Century of Health and Human Service's declaration that [...] used). Performed By: #### C MP #### [facility] [address] [place] [address] Dr. Jeffrey Thomas ER URINE PROFILEon 3 Bilirubin Ql (U) Negative Normal NEGATIVE [facility] Comment on above: Performed By: #### C MP #### [facility] [address] [place] [address] Dr. Jeffrey Thomas Clarity (U) CLEAR Normal CLEAR [facility] Comment on above: Performed By: #### C MP #### [facility] [address] [place] [address] Dr. Jeffrey Thomas Color (U) YELLOW Normal YELLOW [facility] Comment on above: Performed By: #### C MP #### [facility] [address] [place] [address] Dr. Jeffrey AVERYMike A micrscopic examination will be performed if indicated. Normal [facility] Comment on above: Performed By: #### C MP #### [facility] [address] [place] [address] Dr. Jeffrey Thomas Glucose Ql (U) Negative Normal NEGATIVE [facility] Comment on above: Performed By: #### C MP #### [facility] [address] [place] [address] Dr. Jeffrey Thomas Hemoglobin Ql (U) Negative Normal NEGATIVE [facility] Comment on above: Performed By: #### C MP #### [facility] [address] [place] [address] Dr. Jeffrey Thomas Ketones Ql (U) Negative Normal NEGATIVE [facility] Comment on above: Performed By: #### C MP #### [facility] [address] [place] [address] Dr. Jeffrey Thomas LEUKOCYTES Negative Normal NEGATIVE [facility] Comment on above: Performed By: #### C MP #### [facility] [address] [place] [address] Dr. Jeffrey Thomas Nitrite Ql (U) Negative Normal NEGATIVE [facility] Comment on above: Performed By: #### C MP #### [facility] [address] [place] [address] Dr. Jeffrey Thomas pH (U) 5.0 [pH] Normal 5-9 [facility] Comment on above: Performed By: #### C MP #### [facility] [address] [place] [address] Dr. Jeffrey Thomas SPEC GRAVITY 1.020 Normal 1.005-<=1.02 5 [facility] Comment on above: Performed By: #### C MP #### [facility] [address] [place] [address] Dr. Jeffrey Thomas UA PROTEIN Negative Normal NEGATIVE/ TRACE [facility] Comment on above: Performed By: #### C MP #### [facility] [address] [place] [address] Dr. Jeffrey Thomas UR MICRO IND NOT INDICATED Normal [facility] Comment on above: Performed By: #### C MP #### [facility] [address] [place] [address] Dr. Jeffrey Thomas Urobilinogen Qn (U) 0.2 {Bere'U}/dL Normal 0.2 - 1. 0 [facility] Comment on above: Performed By: #### C MP #### [facility] [address] [place] [address] Dr. Jeffrey Thomas INFLUENZA A AND B AGon 05-22 INFLUANEGH SEE BELOW Normal [facility] Comment on above: Result Comment: Nega tive for Flu A protein angiten. Infection due to Flu A cannot be ruled out. Flu A angiten in the sample may be below the detection limit of the test. Performed By: #### C MP #### [facility] [address] [place] [address] Dr. Jeffrey Thomas [facility] SEE BELOW Normal [facility] Comment on above: Result Comment: Nega tive for Flu B protein antigen. Infection due to Flu B cannot be ruled out. Flu B antigen in the sample may be below the detection limit of the test. Performed By: #### C MP #### [facility] [address] [place] [address] Dr. Jeffrey Thomas INFLUENZA A AG Negative Normal NEGATIVE SEE COMMENT [facility] Comment on above: Performed By: #### C MP #### [facility] [address] [place] [address] Dr. Jeffrey Thomas INFLUENZA B AG Negative Normal NEGATIVE SEE COMMENT [facility] Comment on above: Performed By: #### C MP #### [facility] [address] [place] [address] Dr. Jeffrey Thomas LACTATE/LACTIC ACIDon 2022 Lactate [Moles/Vol] 1.4 mmol/L Normal 0.4-1.9 [facility] Comment on above: Performed By: #### L ACT #### [facility] [address] [place] [address] Dr. Jeffrey Thomas Lactate [Moles/Vol] 1.1 mmol/L Normal 0.4-1.9 [facility] Comment on above: Performed By: #### T 4LC #### [facility] [address] [place] [address] Dr. Jeffrey Thomas LIPASEon 05-22-2022 Lipase [Catalytic activity/Vol] 21.0 U/L Critically low 73.0-393.0 [facility] Comment on above: Performed By: #### C MP #### [facility] [address] [place] [address] Dr. Jeffrey Thomas PROF 14(COMP METB)on 023 Albumin [Mass/Vol] 3.2 g/dL Critically low 3.4-5.0 [facility] Comment on above: Performed By: #### C MP #### [facility] [address] [place] [address] Dr. Jeffrey Thomas Albumin/Globulin [Mass ratio] 1.0 {ratio} Normal [facility] Comment on above: Performed By: #### C MP #### [facility] [address] [place] [address] Dr. Jeffrey Thomas ALP [Catalytic activity/Vol] 133 U/L Critically high 46-116 [facility] Comment on above: Performed By: #### C MP #### [facility] [address] [place] [address] Dr. Jeffrey Thomas ALT [Catalytic activity/Vol] 14 U/L Normal 14-59 [facility] Comment on above: Performed By: #### C MP #### [facility] [address] [place] [address] Dr. Jeffrey Thomas Anion gap [Moles/Vol] 17.3 mmol/L Normal [facility] Comment on above: Performed By: #### C MP #### [facility] [address] [place] [address] Dr. Jeffrey Thomas AST [Catalytic activity/Vol] 18 U/L Normal 15-37 [facility] Comment on above: Performed By: #### C MP #### [facility] [address] [place] [address] Dr. Jeffrey Thomas Bilirubin [Mass/Vol] 0.5 mg/dL Normal 0.2-1.0 [facility] Comment on above: Performed By: #### C MP #### [facility] [address] [place] [address] Dr. Jeffrey Thomas Calcium [Mass/Vol] 9.0 mg/dL Normal 8.5-10.1 [facility] [facility] Comment on above: Performed By: #### C MP #### [facility] [address] [place] [address] Dr. Jeffrey Thomas Chloride [Moles/Vol] 107 mmol/L Normal 98-107 [facility] Comment on above: Performed By: #### C MP #### [facility] [address] [place] [address] Dr. Jeffrey Thomas CO2 [Moles/Vol] 20.0 mmol/L Critically low 21.0-32.0 [facility] Comment on above: Performed By: #### C MP #### [facility] [address] [address] [address] Jeffrey Thomas Creatinine [Mass/Vol] 1.05 mg/dL Critically high 0.55-1.02 [facility] Comment on above: Performed By: #### C MP #### [facility] [address] [address] [address] Jeffrey Thomas EGFR-AF VINCENTIAN >60 Normal >=60 [facility] Comment on above: Performed By: #### C MP #### [facility] [address] [address] [address] Jeffrey Thomas EGFR-NON AF VINCENTIAN 53 mL/min/1.73m2 Critically low >=60 [facility] Comment on above: Performed By: #### C MP #### [facility] [address] [address] [address] Jeffrey Thomas Globulin (S) [Mass/Vol] 3.1 g/dL Normal [facility] Comment on above: Performed By: #### C MP #### [facility] [address] [address] [address] Jeffrey Thomas Glucose [Mass/Vol] 117 mg/dL Critically high 74-106 [facility] Comment on above: Performed By: #### C MP #### [facility] [address] [address] [address] eJffrey Thomas Potassium [Moles/Vol] 4.3 mmol/L Normal 3.5-5.1 [facility] Comment on above: Performed By: #### C MP #### [facility] [address] [address] [address] Jeffrey Thomas Protein [Mass/Vol] 6.3 g/dL Critically low 6.4-8.2 [facility] Comment on above: Performed By: #### C MP #### [facility] [address] [address] [address] Jeffrey Thomas Sodium [Moles/Vol] 140 mmol/L Normal 136-145 [facility] Comment on above: Performed By: #### C MP #### [facility] [address] [address] [address] Jeffrey Thomas Urea nitrogen [Mass/Vol] 20.0 mg/dL Critically high 7.0-18.0 [facility] Comment on above: Performed By: #### C MP #### [facility] [address] [place] [address] Dr. Jeffrey Thomas Urea nitrogen/Creatinine [Mass ratio] 19.0 mg/mg Normal [facility] Comment on above: Performed By: #### C MP #### [facility] [address] [place] [address] Dr. Jeffrey Thomas PROTIMEon 05-22-2022 INR Coag (PPP) [Relative time] 0.99 {INR} Normal [facility] Comment on above: Performed By: #### C MP #### [facility] [address] [place] [address] Dr. Jeffrey Thomas INR GUIDELINES SEE BELOW Normal [facility] Comment on above: Result Comment: MERARI RED INR: 2.0 - 3.0 CONDITIONS NOT LISTED BELOW 2.5 - 3.5 FOR PROSTHETIC HEART VALVE REPLACEMENT 2.5 - 3.5 RECURRENT THROMBOSIS Performed By: #### C MP #### [facility] [address] [place] [address] Dr. Jeffrey Thomas PT Coag (PPP) [Time] 10.5 s Normal 9.0-11.6 [facility] Comment on above: Performed By: #### C MP #### [facility] [address] [place] [address] Dr. Jeffrey Thomas PTTon 05-22-2022 aPTT Coag (Bld) [Time] 25.9 s Normal 22.3-36.2 [facility] Comment on above: Performed By: #### C MP #### [facility] [address] [place] [address] Dr. Jeffrey Thomas TROPONIN, HIGH SENSITIVITYon 05-22-2022 HSTROP 6.1 pg/mL Normal 4.0-51.3 [facility] Comment on above: Result Comment: CUT- OFF POINTS HAVE BEEN ESTABLISHED BASED ON THE FOURTH UNIVERSAL DEFINITIONS OF MYOCARDIAL INFARCTION. THE UPPER REFERENCE LIMIT (URL) OF TROPONIN, DEFINED THE 99TH PERCENTILE OF cTnI DISTRIBUTION IN A REFERENCE POPULATION, HAS BEEN CONFIRMED THE DECISION THRESHOLD FOR [place] DIAGNOSIS. Performed By: #### C #### [facility] [address] [place], [place] [address] Dr. Jeffrey Thomas US SINGLE QUAD RT [...] ABDIAS WEN Date: 2022-05-22 17:32 Normal [facility] XR CHEST 1 Von 05-22-2022 [...] MELLY SEO Date: 2022-05-22 15:32 Normal [facility] PT Coag (PPP) [Time]on 05-04 INR Coag (PPP) [Relative time] 1.7 {INR} Normal <=5.0 [facility] Comment on above: Result Comment: The recommended therapeutic INR range for most cardiac indications is 2.0-3.0 For high intensity therapy (i.e. mechanical heart valves), the recommended range is 2.5-3.5 Performed By: #### 5 902-2 #### [facility] [place] [facility] [address] [place] [address] Prothrombin timeon 3 PT Coag (PPP) [Time] 18.8 s High 11.9-14.7 [facility] Comment on above: Performed By: #### 5 902-2 #### [facility] [place] [facility] [address] [place] [address] Basic metabolic 2000 panelon 05-03-2022 Anion gap [Moles/Vol] 8 mmol/L Normal 6-18 [facility] Comment on above: Performed By: #### 2 4321-2 #### [facility] [place] [facility] [address] [place] [address] Calcium [Mass/Vol] 8.6 mg/dL Low 8.9-10.3 [facility] Comment on above: Performed By: #### 2 4321-2 #### [facility] [place] [facility] [address] [place] [address] Chloride [Moles/Vol] 109 mmol/L High 98-107 [facility] Comment on above: Performed By: #### 2 4321-2 #### [facility] [place] [facility] [address] [place] [address] CO2 [Moles/Vol] 25 mmol/L Normal 22-32 [facility] Comment on above: Performed By: #### 2 4321-2 #### [facility] [place] [facility] [address] [place] [address] Creatinine [Mass/Vol] 1.07 mg/dL Normal 0.60-1.30 [facility] Comment on above: Performed By: #### 2 4321-2 #### [facility] [place] [facility] [address] [place] [address] GFR/1.73 sq M.predicted among non-blacks MDRD (S/P/Bld) [Vol rate/Area] 58 mL/min/{1.73_m2} Low >=60 [facility] Comment on above: Result Comment: Effe ctive January 08, 2022, calculation based on the?Chronic Kidney Disease Epidemiology Collaboration (CKD-EPI) equation refit?without adjustment for race. Performed By: #### 2 4321-2 #### [facility] [place] [facility] [address] [place] [address] Glucose [Mass/Vol] 78 mg/dL Normal 70-99 [facility] Comment on above: Performed By: #### 2 4321-2 #### [facility] [place] [facility] [address] [place] [address] Potassium [Moles/Vol] 5.1 mmol/L Normal 3.6-5.1 [facility] Comment on above: Performed By: #### 2 4321-2 #### [facility] [place] [facility] [address] [place] [address] Sodium [Moles/Vol] 142 mmol/L Normal 136-145 [facility] Comment on above: Performed By: #### 2 4321-2 #### [facility] [place] [facility] [address] [place] [address] Urea nitrogen [Mass/Vol] 35 mg/dL High 8-20 [facility] Comment on above: Performed By: #### 2 4321-2 #### [facility] [place] [facility] [address] [place] [address] Urea nitrogen/Creatinine [Mass ratio] 32.7 mg/mg High 12.0-20.0 [facility] Comment on above: Performed By: #### 2 4321-2 #### [facility] [place] [facility] [address] [place] [address] Hemogram and platelets WO di fferential panel (Bld)on 05-03-2022 Erythrocyte distribution width (RBC) [Ratio] 16.4 % High 11.0-14.8 [facility] Comment on above: Performed By: #### 2 4321-2 #### [facility] [place] [facility] [address] [place] [address] Hematocrit (Bld) [Volume fraction] 33.4 % Low 34.3-47.9 [facility] Comment on above: Performed By: #### 2 4321-2 #### [facility] [place] [facility] [address] [place] [address] Hemoglobin (Bld) [Mass/Vol] 10.0 g/dL Low 12.0-16.0 [facility] Comment on above: Performed By: #### 2 4321-2 #### [facility] [place] [facility] [address] [place] [address] MCH 27.2 pcg Normal 27.0-34.0 [facility] Comment on above: Performed By: #### 2 4321-2 #### [facility] [place] [facility] [address] [place] [address]48 MCHC (RBC) [Mass/Vol] 29.9 g/dL Low 30.8-35.3 [facility] Comment on above: Performed By: #### 2 4321-2 #### [facility] [place] [facility] [address] [place] [address] MCV (RBC) [Entitic vol] 91.0 fL Normal 80.0-97.0 [facility] Comment on above: Performed By: #### 2 4321-2 #### [facility] [place] [facility] [address] [place] [address] Platelet mean volume (Bld) [Entitic vol] 11.6 fL Normal 6.2-12.1 [facility] Comment on above: Performed By: #### 2 4321-2 #### [facility] [place] [facility] [address] [place] [address] Platelets (Bld) [#/Vol] 283 10*3/uL Normal 142-424 [facility] Comment on above: Performed By: #### 2 4321-2 #### [facility] [place] [facility] [address] [place] [address] 32440 RBC (Bld) [#/Vol] 3.67 10*6/uL Low 3.74-5.34 [facility] Comment on above: Performed By: #### 2 4321-2 #### [facility] [place] [facility] [address] [place] [address]12[address] WBC (Bld) [#/Vol] 5.5 10*3/uL Normal 4.6-10.2 [facility] Comment on above: Performed By: #### 2 4321-2 #### [facility] [place] [facility] [address] [place] [address] PT Coag (PPP) [Time]on 05-03 INR Coag (PPP) [Relative time] 1.6 {INR} Normal <=5.0 [facility] Comment on above: Result Comment: The recommended therapeutic INR range for most cardiac indications is 2.0-3.0 For high intensity therapy (i.e. mechanical heart valves), the recommended range is 2.5-3.5 Performed By: #### 5 902-2 #### [facility] [place] [facility] [address] [place] [address] Prothrombin timeon PT Coag (PPP) [Time] 17.7 s High 11.9-14.7 [facility] Comment on above: Performed By: #### 5 902-2 #### [facility] [place] [facility] [address] [place] [address] 93370 Nuclear IgG IA Ql (S)on 04-04 Bacteria identified Cx Nom (U) 1 ORGANISM 202 Abnormal >[id number] CFU/mL Escherichia coli The organism value for [...] ug/ml Susceptible Invalid Interpretation Code [facility] Comment on above: Performed By: #### 2 4321-2 #### [facility] ([facility]) [facility] [address] [place] [address] Bacteria, Urine Many Abnormal None [facility] Comment on above: Performed By: #### 2 1-2 #### [facility] [address] [place] [address] Bilirubin, Urine Negative Normal Negative [facility] Comment on above: Performed By: #### 2 4321-2 #### [facility] [address] [place] [address] Blood, Urine 3+ Abnormal Negative [facility] Comment on above: Performed By: #### 2 4321-2 #### [facility] [address] [place] [address] Clarity (U) Slightly Cloudy Abnormal Clear [facility] Comment on above: Performed By: #### 2 4321-2 #### [facility] [place] [facility] [address] [place] [address] Color (U) Renata Abnormal Yellow [facility] Comment on above: Performed By: #### 2 4321-2 #### [facility] [place] [facility] [address] [place] [address] Glucose Ql (U) Normal Normal Normal [facility] Comment on above: Performed By: #### 2 4321-2 #### [facility] [place] [facility] [address] [place] [address] Ketones Ql (U) Negative Normal Negative [facility] Comment on above: Performed By: #### 2 4321-2 #### [facility] [place] [facility] [address] [place] [address] Leukocytes, Urine 250 WBCs/mcL Abnormal Negative [facility] Comment on above: Performed By: #### 2 4321-2 #### [facility] [place] [facility] [address] [place] [address] Mucus, UA Rare Abnormal None [facility] Comment on above: Performed By: #### 2 4321-2 #### [facility] [place] [facility] [address] [place] [address] Nitrite, Urine Negative Normal Negative [facility] Comment on above: Performed By: #### 2 4321-2 #### [facility] [place] [facility] [address] [place] [address] pH (U) 6.0 [pH] Normal 5.0-8.0 [facility] Comment on above: Performed By: #### 2 4321-2 #### [facility] [place] [facility] [address] [place] [address] Protein (U) [Mass/Vol] 30 mg/dL Abnormal Negative [facility] Comment on above: Performed By: #### 2 4321-2 #### [facility] [place] [facility] [address] [place] [address] RBC LM.HPF (Urine sed) [#/Area] 362 /[HPF] High 0-5 [facility] Comment on above: Performed By: #### 2 4321-2 #### [facility] ([facility]) [facility] [address] [place] [address] Specific [place] Urine 1.012 Normal 1.002-1.030 [facility] Comment on above: Performed By: #### 2 4321-2 #### [facility] ([facility]) [facility] [address] [place] [address] Squamous Epithelial, Urine Rare Abnormal None [facility] Comment on above: Performed By: #### 2 4321-2 #### [facility] ([facility]) [facility] [address] [place] [address]88[address] Urobilinogen, Urine Normal Normal Normal [facility] Comment on above: Performed By: #### 2 4321-2 #### [facility] ([facility] [address] [place] [address] 48257 WBC LM.HPF (Urine sed) [#/Area] 47 /[HPF] High 0-5 [facility] Comment on above: Performed By: #### 2 4321-2 #### [facility] ([facility] [address] [place] [address]7547 PT Coag (PPP) [Time]on 05-02 INR Coag (PPP) [Relative time] 1.4 {INR} Normal <=5.0 [facility] Comment on above: Result Comment: The recommended therapeutic INR range for most cardiac indications is 2.0-3.0 For high intensity therapy (i.e. mechanical heart valves), the recommended range is 2.5-3.5 Performed By: #### 5 902-2 #### [facility] ([facility]) [facility] [address] [place] [address] Prothrombin timeon 3 PT Coag (PPP) [Time] 15.9 s High 11.9-14.7 [facility] Comment on above: Performed By: #### 5 902-2 #### [facility] [address] [place] [address] Basic metabolic 2000 panelon 05-01-2022 Anion gap [Moles/Vol] 8 mmol/L Normal 6-18 [facility] Comment on above: Performed By: #### 5 902-2 #### [facility] [place] [facility] [address] [place] [address] Calcium [Mass/Vol] 8.6 mg/dL Low 8.9-10.3 [facility] Comment on above: Performed By: #### 5 902-2 #### [facility] [place] [facility] [address] [place] [address] Chloride [Moles/Vol] 108 mmol/L High 98-107 [facility] Comment on above: Performed By: #### 5 902-2 #### [facility] [place] [facility] [address] [place] [address]61 CO2 [Moles/Vol] 25 mmol/L Normal 22-32 [facility] Comment on above: Performed By: #### 5 902-2 #### [facility] [place] [facility] [address] [place] [address] Creatinine [Mass/Vol] 0.97 mg/dL Normal 0.60-1.30 [facility] Comment on above: Performed By: #### 5 902-2 #### [facility] [place] [facility] [address] [place] [address]2313 GFR/1.73 sq M.predicted among non-blacks MDRD (S/P/Bld) [Vol rate/Area] 65 mL/min/{1.73_m2} Normal >=60 [facility] Comment on above: Result Comment: Effe ctive January 08, 2022, calculation based on the?Chronic Kidney Disease Epidemiology Collaboration (CKD-EPI) equation refit?without adjustment for race. Performed By: #### 5 902-2 #### [facility] [place] [facility] [address] [place] [address] Glucose [Mass/Vol] 82 mg/dL Normal 70-99 [facility] Comment on above: Performed By: #### 5 902-2 #### [facility] [place] [facility] [address] [place] [address] Potassium [Moles/Vol] 4.5 mmol/L Normal 3.6-5.1 [facility] Comment on above: Performed By: #### 5 902-2 #### [facility] [place] [facility] [address] [place] [address] 14984 Sodium [Moles/Vol] 141 mmol/L Normal 136-145 [facility] Comment on above: Performed By: #### 5 902-2 #### [facility] [place] [facility] [address] [place] [address] 96165 Urea nitrogen [Mass/Vol] 34 mg/dL High 8-20 [facility] Comment on above: Performed By: #### 5 902-2 #### [facility] [place] [facility] [address] [place] [address] 31446 Urea nitrogen/Creatinine [Mass ratio] 35.1 mg/mg High 12.0-20.0 [facility] Comment on above: Performed By: #### 5 902-2 #### [facility] [place] [facility] [address] [place] [address] Hemogram and platelets WO di fferential panel (Bld)on 05-01-2022 Erythrocyte distribution width (RBC) [Ratio] 16.5 % High 11.0-14.8 [facility] Comment on above: Performed By: #### 2 4321-2 #### [facility] [place] [facility] [address] [place] [address] 88029 Hematocrit (Bld) [Volume fraction] 33.7 % Low 34.3-47.9 [facility] Comment on above: Performed By: #### 2 4321-2 #### [facility] [place] [facility] [address] [place] [address] 85134 Hemoglobin (Bld) [Mass/Vol] 10.3 g/dL Low 12.0-16.0 [facility] Comment on above: Performed By: #### 2 1-2 #### [facility] [place] [facility] [address] [place] [address] MCH 28.1 pcg Normal 27.0-34.0 [facility] Comment on above: Performed By: #### 2 1-2 #### [facility] [place] [facility] [address] [place] [address] 48504 MCHC (RBC) [Mass/Vol] 30.6 g/dL Low 30.8-35.3 [facility] Comment on above: Performed By: #### 2 1-2 #### [facility] [place] [facility] [address] [place] [address] 44606 MCV (RBC) [Entitic vol] 92.1 fL Normal 80.0-97.0 [facility] Comment on above: Performed By: #### 2 1-2 #### [facility] [place] [facility] [address] [place] [address] 16802 Platelet mean volume (Bld) [Entitic vol] 11.6 fL Normal 6.2-12.1 [facility] Comment on above: Performed By: #### 2 1-2 #### [facility] [place] [facility] [address] [place] [address] 64435 Platelets (Bld) [#/Vol] 275 10*3/uL Normal 142-424 [facility] Comment on above: Performed By: #### 2 1-2 #### [facility] [place] [facility] [address] [place] [address] 74882 RBC (Bld) [#/Vol] 3.66 10*6/uL Low 3.74-5.34 [facility] Comment on above: Performed By: #### 2 1-2 #### [facility] [place] [facility] [address] [place] [address] 14657 WBC (Bld) [#/Vol] 5.9 10*3/uL Normal 4.6-10.2 [facility] Comment on above: Performed By: #### 2 4321-2 #### [facility] [place] [facility] [address] [place] [address] PT Coag (PPP) [Time]on 05-01 INR Coag (PPP) [Relative time] 1.3 {INR} Normal <=5.0 [facility] Comment on above: Result Comment: The recommended therapeutic INR range for most cardiac indications is 2.0-3.0 For high intensity therapy (i.e. mechanical heart valves), the recommended range is 2.5-3.5 Performed By: #### 2 4321-2 #### [facility] [place] [facility] [address] [place] [address]953 Prothrombin timeon 3 PT Coag (PPP) [Time] 15.6 s High 11.9-14.7 [facility] Comment on above: Performed By: #### 2 4321-2 #### [facility] [place] [facility] [address] [place] [address] 41669 PT Coag (PPP) [Time]on 04-30 INR Coag (PPP) [Relative time] 1.4 {INR} Normal <=5.0 [facility] Comment on above: Result Comment: The recommended therapeutic INR range for most cardiac indications is 2.0-3.0 For high intensity therapy (i.e. mechanical heart valves), the recommended range is 2.5-3.5 Performed By: #### 5 902-2 #### [facility] [place] [facility] [address] [place] [address] 01303 Prothrombin timeon 3 PT Coag (PPP) [Time] 16.0 s High 11.9-14.7 [facility] Comment on above: Performed By: #### 5 902-2 #### [facility] [address] [place] [address] 12475 Basic metabolic 2000 panelon 04-29-2022 Anion gap [Moles/Vol] 6 mmol/L Normal 6-18 [facility] Comment on above: Performed By: #### 5 902-2 #### [facility] [place] [facility] [address] [place] [address] Calcium [Mass/Vol] 8.7 mg/dL Low 8.9-10.3 [facility] Comment on above: Performed By: #### 5 902-2 #### [facility] [place] [facility] [address] [place] [address] Chloride [Moles/Vol] 103 mmol/L Normal 98-107 [facility] Comment on above: Performed By: #### 5 902-2 #### [facility] [place] [facility] [address] [place] [address] 61101 CO2 [Moles/Vol] 28 mmol/L Normal 22-32 [facility] Comment on above: Performed By: #### 5 902-2 #### [facility] [place] [facility] [address] [place] [address] 68591 Creatinine [Mass/Vol] 1.14 mg/dL Normal 0.60-1.30 [facility] Comment on above: Performed By: #### 5 902-2 #### [facility] [place] [facility] [address] [place] [address] 52711 GFR/1.73 sq M.predicted among non-blacks MDRD (S/P/Bld) [Vol rate/Area] 54 mL/min/{1.73_m2} Low >=60 [facility] Comment on above: Result Comment: Effe ctive January 08, 2022, calculation based on the?Chronic Kidney Disease Epidemiology Collaboration (CKD-EPI) equation refit?without adjustment for race. Performed By: #### 5 902-2 #### [facility] [place] [facility] [address] [place] [address] Glucose [Mass/Vol] 90 mg/dL Normal 70-99 [facility] Comment on above: Performed By: #### 5 902-2 #### [facility] [place] [facility] [address] [place] [address] 96867 Potassium [Moles/Vol] 4.8 mmol/L Normal 3.6-5.1 [facility] Comment on above: Performed By: #### 5 902-2 #### [facility] [place] [facility] [address] [place] [address] Sodium [Moles/Vol] 137 mmol/L Normal 136-145 [facility] Comment on above: Performed By: #### 5 902-2 #### [facility] [place] [facility] [address] [place] [address] 37379 Urea nitrogen [Mass/Vol] 35 mg/dL High 8-20 [facility] Comment on above: Performed By: #### 5 902-2 #### [facility] [place] [facility] [address] [place] [address] 53736 Urea nitrogen/Creatinine [Mass ratio] 30.7 mg/mg High 12.0-20.0 [facility] Comment on above: Performed By: #### 5 902-2 #### [facility] [place] [facility] [address] [place] [address] 44347 PT Coag (PPP) [Time]on 04-29 INR Coag (PPP) [Relative time] 1.4 {INR} Normal <=5.0 [facility] Comment on above: Result Comment: The recommended therapeutic INR range for most cardiac indications is 2.0-3.0 For high intensity therapy (i.e. mechanical heart valves), the recommended range is 2.5-3.5 Performed By: #### 5 902-2 #### [facility] [place] [facility] [address] [place] [address] 62622 Prothrombin timeon PT Coag (PPP) [Time] 16.5 s High 11.9-14.7 [facility] Comment on above: Performed By: #### 5 902-2 #### [facility] [place] [facility] [address] [place] [address] 05898 PT Coag (PPP) [Time]on 04-28 INR Coag (PPP) [Relative time] 1.3 {INR} Normal <=5.0 [facility] Comment on above: Result Comment: The recommended therapeutic INR range for most cardiac indications is 2.0-3.0 For high intensity therapy (i.e. mechanical heart valves), the recommended range is 2.5-3.5 Performed By: #### 5 902-2 #### [facility] [place] [facility] [address] [place] [address] Prothrombin timeon PT Coag (PPP) [Time] 15.6 s High 11.9-14.7 [facility] Comment on above: Performed By: #### 5 902-2 #### [facility] [place] [facility] [address] [place] [address] 73155 Basic metabolic 2000 panelon 04-27-2022 Anion gap [Moles/Vol] 10 mmol/L Normal 6-18 [facility] Comment on above: Performed By: #### 2 4321-2 #### [facility] [place] [facility] [address] [place] [address] 15971 Calcium [Mass/Vol] 8.4 mg/dL Low 8.9-10.3 [facility] Comment on above: Performed By: #### 2 4321-2 #### [facility] [place] [facility] [address] [place] [address] 29368 Chloride [Moles/Vol] 105 mmol/L Normal 98-107 [facility] Comment on above: Performed By: #### 2 4321-2 #### [facility] [place] [facility] [address] [place] [address] 15931 CO2 [Moles/Vol] 22 mmol/L Normal 22-32 [facility] Comment on above: Performed By: #### 2 4321-2 #### [facility] [place] [facility] [address] [place] [address] 32696 Creatinine [Mass/Vol] 1.12 mg/dL Normal 0.60-1.30 [facility] Comment on above: Performed By: #### 2 4321-2 #### [facility] [place] [facility] [address] [place] [address] GFR/1.73 sq M.predicted among non-blacks MDRD (S/P/Bld) [Vol rate/Area] 55 mL/min/{1.73_m2} Low >=60 [facility] Comment on above: Result Comment: Effe ctive January 08, 2022, calculation based on the?Chronic Kidney Disease Epidemiology Collaboration (CKD-EPI) equation refit?without adjustment for race. Performed By: #### 2 4321-2 #### [facility] [place] [facility] [address] [place] [address] 23900 Glucose [Mass/Vol] 82 mg/dL Normal 70-99 [facility] Comment on above: Performed By: #### 2 4321-2 #### [facility] [place] [facility] [address] [place] [address] 20291 Potassium [Moles/Vol] 5.6 mmol/L High 3.6-5.1 [facility] Comment on above: Performed By: #### 2 4321-2 #### [facility] [place] [facility] [address] [place] [address] 98526 Sodium [Moles/Vol] 137 mmol/L Normal 136-145 [facility] Comment on above: Performed By: #### 2 4321-2 #### [facility] [place] [facility] [address] [place] [address] 47147 Urea nitrogen [Mass/Vol] 35 mg/dL High 8-20 [facility] Comment on above: Performed By: #### 2 4321-2 #### [facility] [place] [facility] [address] [place] [address] 28321 Urea nitrogen/Creatinine [Mass ratio] 31.3 mg/mg High 12.0-20.0 [facility] Comment on above: Performed By: #### 2 4321-2 #### [facility] [place] [facility] [address] [place] [address] 54758 PT Coag (PPP) [Time]on 04-27 INR Coag (PPP) [Relative time] 1.2 {INR} Normal <=5.0 [facility] Comment on above: Result Comment: The recommended therapeutic INR range for most cardiac indications is 2.0-3.0 For high intensity therapy (i.e. mechanical heart valves), the recommended range is 2.5-3.5 Performed By: #### 5 902-2 #### [facility] [place] [facility] [address] [place] [address] Prothrombin timeon 3 PT Coag (PPP) [Time] 14.5 s Normal 11.9-14.7 [facility] Comment on above: Performed By: #### 5 902-2 #### [facility] ([facility] [address] [place] [address] 62442 PT Coag (PPP) [Time]on 04-26 INR Coag (PPP) [Relative time] 1.2 {INR} Normal <=5.0 [facility] Comment on above: Result Comment: The recommended therapeutic INR range for most cardiac indications is 2.0-3.0 For high intensity therapy (i.e. mechanical heart valves), the recommended range is 2.5-3.5 Performed By: #### 2 4321-2 #### [facility] ([facility] [address] [place] [address] Prothrombin timeon 3 PT Coag (PPP) [Time] 14.3 s Normal 11.9-14.7 [facility] Comment on above: Performed By: #### 2 4321-2 #### [facility] ([facility] [address] [place] [address] 23217 Basic metabolic 2000 panelon 04-25-2022 Anion gap [Moles/Vol] 7 mmol/L Normal 6-18 [facility] Comment on above: Performed By: #### 2 4321-2 #### [facility] ([facility] [address] [place] [address] 83806 Calcium [Mass/Vol] 8.5 mg/dL Low 8.9-10.3 [facility] Comment on above: Performed By: #### 2 4321-2 #### [facility] ([facility]) LAB [address] [place] [address] Chloride [Moles/Vol] 104 mmol/L Normal 98-107 [facility] Comment on above: Performed By: #### 2 4321-2 #### [facility] ([facility]) LAB [address] [place] [address] 79266 CO2 [Moles/Vol] 30 mmol/L Normal 22-32 [facility] Comment on above: Performed By: #### 2 4321-2 #### [facility] ([facility]) [facility] [address] [place] [address] 09855 Creatinine [Mass/Vol] 1.00 mg/dL Normal 0.60-1.30 [facility] Comment on above: Performed By: #### 2 4321-2 #### [facility] ([facility]) LAB [address] [place] [address] 60303 GFR/1.73 sq M.predicted among non-blacks MDRD (S/P/Bld) [Vol rate/Area] 63 mL/min/{1.73_m2} Normal >=60 [facility] Comment on above: Result Comment: Effe ctive January 08, 2022, calculation based on the?Chronic Kidney Disease Epidemiology Collaboration (CKD-EPI) equation refit?without adjustment for race. Performed By: #### 2 4321-2 #### [facility] ([facility]) [facility] [address] [place] [address] 89853 Glucose [Mass/Vol] 89 mg/dL Normal 70-99 [facility] Comment on above: Performed By: #### 2 4321-2 #### [facility] ([facility]) [facility] [address] [place] [address] 73059 Potassium [Moles/Vol] 5.2 mmol/L High 3.6-5.1 [facility] Comment on above: Performed By: #### 2 4321-2 #### [facility] ([facility] [address] [place] [address] Sodium [Moles/Vol] 141 mmol/L Normal 136-145 [facility] Comment on above: Performed By: #### 2 4321-2 #### [facility] [place] [facility] [address] [place] [address] Urea nitrogen [Mass/Vol] 25 mg/dL High 8-20 [facility] Comment on above: Performed By: #### 2 4321-2 #### [facility] [place] [facility] [address] [place] [address] 82107 Urea nitrogen/Creatinine [Mass ratio] 25.0 mg/mg High 12.0-20.0 [facility] Comment on above: Performed By: #### 2 4321-2 #### [facility] [place] [facility] [address] [place] [address] 13289 PT Coag (PPP) [Time]on 04-25 INR Coag (PPP) [Relative time] 1.2 {INR} Normal <=5.0 [facility] Comment on above: Result Comment: The recommended therapeutic INR range for most cardiac indications is 2.0-3.0 For high intensity therapy (i.e. mechanical heart valves), the recommended range is 2.5-3.5 Performed By: #### 5 902-2 #### [facility] [place] [facility] [address] [place] [address] 40035 Prothrombin timeon 3 PT Coag (PPP) [Time] 14.0 s Normal 11.9-14.7 [facility] Comment on above: Performed By: #### 5 902-2 #### [facility] [place] [facility] [address] [place] [address] 41061 Basic metabolic 2000 panelon 04-24-2022 Anion gap [Moles/Vol] 7 mmol/L Normal 6-18 [facility] Comment on above: Performed By: #### 2 4321-2 #### [facility] [place] [facility] [address] [place] [address] 04505 Calcium [Mass/Vol] 8.7 mg/dL Low 8.9-10.3 [facility] Comment on above: Performed By: #### 2 4321-2 #### [facility] [place] [facility] [address] [place] [address] Chloride [Moles/Vol] 106 mmol/L Normal 98-107 [facility] Comment on above: Performed By: #### 2 4321-2 #### [facility] [place] [facility] [address] [place] [address] CO2 [Moles/Vol] 28 mmol/L Normal 22-32 [facility] Comment on above: Performed By: #### 2 4321-2 #### [facility] [place] [facility] [address] [place] [address] 51419 Creatinine [Mass/Vol] 1.14 mg/dL Normal 0.60-1.30 [facility] Comment on above: Performed By: #### 2 4321-2 #### [facility] [place] [facility] [address] [place] [address] 62907 GFR/1.73 sq M.predicted among non-blacks MDRD (S/P/Bld) [Vol rate/Area] 54 mL/min/{1.73_m2} Low >=60 [facility] Comment on above: Result Comment: Effe ctive January 08, 2022, calculation based on the?Chronic Kidney Disease Epidemiology Collaboration (CKD-EPI) equation refit?without adjustment for race. Performed By: #### 2 4321-2 #### [facility] [place] [facility] [address] [place] [address] Glucose [Mass/Vol] 95 mg/dL Normal 70-99 [facility] Comment on above: Performed By: #### 2 4321-2 #### [facility] [place] [facility] [address] [place] [address] Potassium [Moles/Vol] 5.3 mmol/L High 3.6-5.1 [facility] Comment on above: Performed By: #### 2 4321-2 #### [facility] [place] [facility] [address] [place] [address] Sodium [Moles/Vol] 141 mmol/L Normal 136-145 [facility] Comment on above: Performed By: #### 2 4321-2 #### [facility] [place] [facility] [address] [place] [address] 76802 Urea nitrogen [Mass/Vol] 25 mg/dL High 8-20 [facility] Comment on above: Performed By: #### 2 4321-2 #### [facility] [place] [facility] [address] [place] [address] 09453 Urea nitrogen/Creatinine [Mass ratio] 21.9 mg/mg High 12.0-20.0 [facility] Comment on above: Performed By: #### 2 4321-2 #### [facility] ([facility]) LAB [address] [place] [address] 30369 Hemogram and platelets WO di fferential panel (Bld)on 04-24-2022 Erythrocyte distribution width (RBC) [Ratio] 16.9 % High 11.0-14.8 [facility] Comment on above: Performed By: #### 2 4317-0 #### [facility] ([facility]) [facility] [address] [place] [address] 25167 Hematocrit (Bld) [Volume fraction] 35.3 % Normal 34.3-47.9 [facility] Comment on above: Performed By: #### 2 4317-0 #### [facility] [place] [facility] [address] [place] [address] 08422 Hemoglobin (Bld) [Mass/Vol] 10.9 g/dL Low 12.0-16.0 [facility] Comment on above: Performed By: #### 2 4317-0 #### [facility] [place] [facility] [address] [place] [address] 29625 Immature Platelet Fraction 14.0 % High 1.4-10.8 [facility] Comment on above: Performed By: #### 2 4317-0 #### [facility] [place] [facility] [address] [place] [address] MCH 28.9 pcg Normal 27.0-34.0 [facility] Comment on above: Performed By: #### 2 4316-0 #### [facility] [place] [facility] [address] [place] [address] 64938 MCHC (RBC) [Mass/Vol] 30.9 g/dL Normal 30.8-35.3 [facility] Comment on above: Performed By: #### 2 4316-0 #### [facility] [place] [facility] [address] [place] [address] 32951 MCV (RBC) [Entitic vol] 93.6 fL Normal 80.0-97.0 [facility] Comment on above: Performed By: #### 2 4316-0 #### [facility] [place] [facility] [address] [place] [address] 93520 Platelet mean volume (Bld) [Entitic vol] 12.9 fL High 6.2-12.1 [facility] Comment on above: Performed By: #### 2 4316-0 #### [facility] [place] [facility] [address] [place] [address] 01572 Platelets (Bld) [#/Vol] 160 10*3/uL Normal 142-424 [facility] Comment on above: Performed By: #### 2 4316-0 #### [facility] [place] [facility] [address] [place] [address] 37672 RBC (Bld) [#/Vol] 3.77 10*6/uL Normal 3.74-5.34 [facility] Comment on above: Performed By: #### 2 7-0 #### [facility] [place] [facility] [address] [place] [address] 69576 WBC (Bld) [#/Vol] 7.7 10*3/uL Normal 4.6-10.2 [facility] Comment on above: Performed By: #### 2 7-0 #### [facility] [place] [facility] [address] [place] [address] 66928 PT Coag (PPP) [Time]on 04-24 INR Coag (PPP) [Relative time] 1.1 {INR} Normal <=5.0 [facility] Comment on above: Result Comment: The recommended therapeutic INR range for most cardiac indications is 2.0-3.0 For high intensity therapy (i.e. mechanical heart valves), the recommended range is 2.5-3.5 Performed By: #### 2 4321-2 #### [facility] [place] [facility] [address] [place] [address] 60845 Prothrombin timeon PT Coag (PPP) [Time] 13.9 s Normal 11.9-14.7 [facility] Comment on above: Performed By: #### 2 4321-2 #### [facility] [place] [facility] [address] [place] [address] 11689 Basic metabolic 2000 panelon 04-23-2022 Anion gap [Moles/Vol] 8 mmol/L Normal 6-18 [facility] Comment on above: Performed By: #### 2 4321-2 #### [facility] [place] [facility] [address] [place] [address] 53141 Calcium [Mass/Vol] 8.5 mg/dL Low 8.9-10.3 [facility] Comment on above: Performed By: #### 2 4321-2 #### [facility] [place] [facility] [address] [place] [address] 22692 Chloride [Moles/Vol] 106 mmol/L Normal 98-107 [facility] Comment on above: Performed By: #### 2 4321-2 #### [facility] [place] [facility] [address] [place] [address] 30223 CO2 [Moles/Vol] 28 mmol/L Normal 22-32 [facility] Comment on above: Performed By: #### 2 4321-2 #### [facility] [place] [facility] [address] [place] [address] 10123 Creatinine [Mass/Vol] 1.01 mg/dL Normal 0.60-1.30 [facility] Comment on above: Performed By: #### 2 4321-2 #### [facility] [place] [facility] [address] [place] [address] GFR/1.73 sq M.predicted among non-blacks MDRD (S/P/Bld) [Vol rate/Area] 62 mL/min/{1.73_m2} Normal >=60 [facility] Comment on above: Result Comment: Effe ctive January 08, 2022, calculation based on the?Chronic Kidney Disease Epidemiology Collaboration (CKD-EPI) equation refit?without adjustment for race. Performed By: #### 2 4321-2 #### [facility] [place] [facility] [address] [place] [address] 99601 Glucose [Mass/Vol] 108 mg/dL High 70-99 [facility] Comment on above: Performed By: #### 2 4321-2 #### [facility] [place] [facility] [address] [place] [address] 89194 Potassium [Moles/Vol] 5.0 mmol/L Normal 3.6-5.1 [facility] Comment on above: Performed By: #### 2 4321-2 #### [facility] [place] [facility] [address] [place] [address] 19328 Sodium [Moles/Vol] 142 mmol/L Normal 136-145 [facility] Comment on above: Performed By: #### 2 4321-2 #### [facility] [place] [facility] [address] [place] [address] 19400 Urea nitrogen [Mass/Vol] 23 mg/dL High 8-20 [facility] Comment on above: Performed By: #### 2 4321-2 #### [facility] [place] [facility] [address] [place] [address] 37868 Urea nitrogen/Creatinine [Mass ratio] 22.8 mg/mg High 12.0-20.0 [facility] Comment on above: Performed By: #### 2 4321-2 #### [facility] [place] [facility] [address] [place] [address] Hemogram and platelets WO di fferential panel (Bld)on 04-23-2022 Basophils (Bld) [#/Vol] 0.06 10*3/uL Normal 0.00-0.20 [facility] Comment on above: Performed By: #### 2 4321-2 #### [facility] [place] [facility] [address] [place] [address] 90362 Basophils/100 WBC (Bld) 0.7 % Normal 0.0-2.0 [facility] Comment on above: Performed By: #### 2 1-2 #### [facility] [address] [place] [address] 44579 Eosinophils (Bld) [#/Vol] 0.17 10*3/uL Normal 0.00-0.70 [facility] Comment on above: Performed By: #### 2 1-2 #### [facility] [place] [facility] [address] [place] [address] 27372 Eosinophils/100 WBC (Bld) 2.1 % Normal 0.0-7.0 [facility] Comment on above: Performed By: #### 2 1-2 #### [facility] [place] [facility] [address] [place] [address] 38755 Erythrocyte distribution width (RBC) [Ratio] 17.0 % High 11.0-14.8 [facility] Comment on above: Performed By: #### 2 1-2 #### [facility] [place] [facility] [address] [place] [address] 99860 Hematocrit (Bld) [Volume fraction] 34.1 % Low 34.3-47.9 [facility] Comment on above: Performed By: #### 2 1-2 #### [facility] [place] [facility] [address] [place] [address] 21059 Hemoglobin (Bld) [Mass/Vol] 10.4 g/dL Low 12.0-16.0 [facility] Comment on above: Performed By: #### 2 4321-2 #### [facility] [place] [facility] [address] [place] [address] Immature granulocytes (Bld) [#/Vol] 0.02 10*3/uL Normal 0.00-0.10 [facility] Comment on above: Performed By: #### 2 1-2 #### [facility] [place] [facility] [address] [place] [address] 82113 Immature granulocytes/100 WBC (Bld) 0.2 % Normal 0.0-1.2 [facility] Comment on above: Performed By: #### 2 1-2 #### [facility] [address] [place] [address] 24673 Lymphocytes (Bld) [#/Vol] 2.24 10*3/uL Normal 1.00-4.80 [facility] Comment on above: Performed By: #### 2 1-2 #### [facility] ([facility]) LAB [address] [place] [address] 87364 Lymphocytes/100 WBC (Bld) 27.4 % Normal 17.9-49.6 [facility] Comment on above: Performed By: #### 2 1-2 #### [facility] ([facility]) [facility] [address] [place] [address] 64426 MCH 28.4 pcg Normal 27.0-34.0 [facility] Comment on above: Performed By: #### 2 4321-2 #### [facility] [place] [facility] [address] [place] [address] 35297 MCHC (RBC) [Mass/Vol] 30.5 g/dL Low 30.8-35.3 [facility] Comment on above: Performed By: #### 2 1-2 #### [facility] [place] [facility] [address] [place] [phone] MCV (RBC) [Entitic vol] 93.2 fL Normal 80.0-97.0 [facility] Comment on above: Performed By: #### 2 4321-2 #### [facility] [place] [facility] [address] [place] [address] Monocytes (Bld) [#/Vol] 0.98 10*3/uL High 0.00-0.90 [facility] Comment on above: Performed By: #### 2 1-2 #### [facility] [place] [facility] [address] [place] [id number] Monocytes/100 WBC (Bld) 12.0 % Normal 0.0-12.0 [facility] Comment on above: Performed By: #### 2 1-2 #### [facility] LAB [address] [place] [phone] Neutrophils Absolute 4.71 K/mcL Normal 1.80-7.70 [facility] Comment on above: Performed By: #### 2 1-2 #### [facility] [place] [facility] LAB [address] [place] [id number] Neutrophils/100 WBC (Bld) 57.6 % Normal 38.1-75.5 [facility] Comment on above: Performed By: #### 2 1-2 #### [facility] [address] [place] [id number] Platelet mean volume (Bld) [Entitic vol] 13.0 fL High 6.2-12.1 [facility] Comment on above: Performed By: #### 2 1-2 #### [facility] [facility] [place] [facility] [address] [place] [address] Platelets (Bld) [#/Vol] 175 10*3/uL Normal 142-424 [facility] Comment on above: Performed By: #### 2 1-2 #### [facility] [place] [facility] [address] [place] [address] RBC (Bld) [#/Vol] 3.66 10*6/uL Low 3.74-5.34 [facility] Comment on above: Performed By: #### 2 1-2 #### [facility] LAB [address] [place] [address] WBC (Bld) [#/Vol] 8.2 10*3/uL Normal 4.6-10.2 [facility] Comment on above: Performed By: #### 2 4321-2 #### [facility] [address] [place] [address] PT Coag (PPP) [Time]on 04-23 INR Coag (PPP) [Relative time] 1.1 {INR} Normal <=5.0 [facility] Comment on above: Result Comment: The recommended therapeutic INR range for most cardiac indications is 2.0-3.0 For high intensity therapy (i.e. mechanical heart valves), the recommended range is 2.5-3.5 Performed By: #### 2 4321-2 #### [facility] [address] [place] [address] Prothrombin timeon PT Coag (PPP) [Time] 13.4 s Normal 11.9-14.7 [facility] Comment on above: Performed By: #### 2 4321-2 #### [facility] ([facility]) LAB [address] [place] [address] Basic metabolic 2000 panelon 04-22-2022 Anion gap [Moles/Vol] 6 mmol/L Normal 6-18 [facility] Comment on above: Performed By: #### 1 988-5 #### [facility] ([facility] [address] [facility] [place] [address] Calcium [Mass/Vol] 8.3 mg/dL Low 8.9-10.3 [facility] Comment on above: Performed By: #### 1 988-5 #### [facility] ([facility] [address] [place] [address] Chloride [Moles/Vol] 107 mmol/L Normal 98-107 [facility] Comment on above: Performed By: #### 1 988-5 #### [facility] [address] [place] [address] CO2 [Moles/Vol] 25 mmol/L Normal 22-[address] [facility] Comment on above: Performed By: #### 1 988-5 #### [facility] [address] [place] [address] Creatinine [Mass/Vol] 1.06 mg/dL Normal 0.60-1.30 [facility] Comment on above: Performed By: #### 1 988-5 #### [facility] [address] [place] [address] GFR/1.73 sq M.predicted among non-blacks MDRD (S/P/Bld) [Vol rate/Area] 59 mL/min/{1.73_m2} Low >=60 [facility] Comment on above: Result Comment: Effe ctive January 08, 2022, calculation based on the?Chronic Kidney Disease Epidemiology Collaboration (CKD-EPI) equation refit?without adjustment for race. Performed By: #### 1 988-5 #### [facility] [address] [place] [address] Glucose [Mass/Vol] 104 mg/dL High 70-99 [facility] Comment on above: Performed By: #### 1 988-5 #### [facility] [address] [place] [address] Potassium [Moles/Vol] 4.7 mmol/L Normal 3.6-5.1 [facility] Comment on above: Performed By: #### 1 988-5 #### [facility] [address] [place] [address] Sodium [Moles/Vol] 138 mmol/L Normal 136-145 [facility] Comment on above: Performed By: #### 1 988-5 #### [facility] [address] [place] [address] Urea nitrogen [Mass/Vol] 24 mg/dL High 8-20 [facility] Comment on above: Performed By: #### 1 988-5 #### [facility] [address] [place] [address] Urea nitrogen/Creatinine [Mass ratio] 22.6 mg/mg High 12.0-20.0 [facility] Comment on above: Performed By: #### 1 988-5 #### [facility] [address] [facility] [place] [address] Anion gap [Moles/Vol] 6 mmol/L 6 - 18 [facility] [employer] Calcium [Mass/Vol] 8.3 mg/dL Low 8.9 - 10. 3 mg/dL [facility] [employer] Chloride [Moles/Vol] 107 mmol/L 98 - 10 7 mmol/L [facility] [employer] CO2 [Moles/Vol] 25 mmol/L 22 - 32 mmol/L [facility] [employer] Creatinine [Mass/Vol] 1.06 mg/dL 0.60 - 1.30 mg/dL [employer] GFR/1.73 sq M.predicted among non-blacks MDRD (S/P/Bld) [Vol rate/Area] 59 mL/min/{1.73_m2} Low - PINF [facility] Comment on above: Effective January 08, 2022, calculation based on the Chronic Kidney Disease Epidemiology Collaboration (CKD-EPI) equation refit without adjustment for race. Glucose [Mass/Vol] 104 mg/dL High 70 - 99 mg/dL [employer] Interpretation and review of laboratory results Abnormal [employer] Potassium [Moles/Vol] 4.7 mmol/L 3.6 - 5.1 mmol/L [employer] Sodium [Moles/Vol] 138 mmol/L 136 - 145 mmol/L [employer] Urea nitrogen [Mass/Vol] 24 mg/dL High 8 - 20 mg/dL [employer] Urea nitrogen/Creatinine [Mass ratio] 22.6 mg/mg High 12.0 - 20.0 [facility] [employer] Hemogram and platelets WO di fferential panel (Bld)on 04-22-2022 Erythrocyte distribution width (RBC) [Ratio] 16.4 % High 11.0-14.8 [facility] Comment on above: Performed By: #### 1 988-5 #### [facility] [address] [place] [address] Hematocrit (Bld) [Volume fraction] 35.8 % Normal 34.3-47.9 [facility] Comment on above: Performed By: #### 1 988-5 #### [facility] [address] [place] [address] Hemoglobin (Bld) [Mass/Vol] 10.9 g/dL Low 12.0-16.0 [facility] Comment on above: Performed By: #### 1 988-5 #### [facility] [address] [place] [address] MCH 28.2 pcg Normal 27.0-34.0 [facility] Comment on above: Performed By: #### 1 988-5 #### [facility] [address] [place] [address] MCHC (RBC) [Mass/Vol] 30.4 g/dL Low 30.8-35.3 [facility] Comment on above: Performed By: #### 1 988-5 #### [facility] [address] [place] [address] MCV (RBC) [Entitic vol] 92.5 fL Normal 80.0-97.0 [facility] Comment on above: Performed By: #### 1 988-5 #### [facility] [address] [place] [address] Platelet mean volume (Bld) [Entitic vol] 12.4 fL High 6.2-12.1 [facility] Comment on above: Performed By: #### 1 988-5 #### [facility] ([facility] [address] [place] [address] Platelets (Bld) [#/Vol] 158 10*3/uL Normal 142-424 [facility] Comment on above: Performed By: #### 1 988-5 #### [facility] [address] [place] [address] RBC (Bld) [#/Vol] 3.87 10*6/uL Normal 3.74-5.34 [facility] Comment on above: Performed By: #### 1 988-5 #### [facility] [address] [place] [address] WBC (Bld) [#/Vol] 9.0 10*3/uL Normal 4.6-10.2 [facility] Comment on above: Performed By: #### 1 988-5 #### [facility] [address] [place] [address] Erythrocyte distribution width (RBC) [Ratio] 16.4 % High 11.0 - 14.8 % [facility] Hematocrit (Bld) [Volume fraction] 35.8 % 34.3 - 47.9 % [facility] Hemoglobin (Bld) [Mass/Vol] 10.9 g/dL Low 12.0 - 16.0 g/dL [facility] [employer] Interpretation and review of laboratory results Abnormal [facility] MCH (RBC) [Entitic mass] 28.2 pg [...] (PPP) [Relative time] 0.9 {INR} Normal <=5.0 [facility] Comment on above: Result Comment: The recommended therapeutic INR range for most cardiac indications is 2.0-3.0 For high intensity therapy (i.e. mechanical heart valves), the recommended range is 2.5-3.5 Performed By: #### 1 988-5 #### [facility] [address] [place] [address] INR Coag (PPP) [Relative time] 0.9 {INR} NINF - 5.0 [facility] Comment on above: The recommended ther apeutic INR range for most cardiac indications is 2.0-3.0 For high intensity therapy (i.e. mechanical heart valves), the recommended range is 2.5-3.5 Interpretation and review of laboratory results Normal [facility] PT Coag (Bld) [Time] 12.6 s [facility] Prothrombin timeon 3 PT Coag (PPP) [Time] 12.6 s Normal 11.9-14.7 [facility] Comment on above: Performed By: #### 1 988-5 #### [facility] [address] [place] [address] SARS-CoV-2 (COVID-19) RNA NA A+probe Ql (Resp)on 04-22-2022 Interpretation and review of laboratory results Normal [facility] SARS-CoV-2 (COVID-19) RdRp gene REBECCA+probe Ql (Resp) Not detected Not Detected [facility] SARS-CoV-2 RNA Resp Ql REBECCA+p robeon 04-22-2022 SARS-CoV-2 (COVID-19) RNA REBECCA+probe Ql (Resp) Not detected Normal Not Detected [facility] Comment on above: Performed By: #### 5 75-1 #### [facility] ([facility]) LAB [address] [place] [address] Basic metabolic 2000 panelon 04-21-2022 Anion gap [Moles/Vol] 9 mmol/L Normal 6-18 [facility] Comment on above: Performed By: #### 1 988-5 #### [facility] [address] [place] [address] Calcium [Mass/Vol] 8.2 mg/dL Low 8.9-10.3 [facility] Comment on above: Performed By: #### 1 988-5 #### [facility] [address] [place] [address] Chloride [Moles/Vol] 108 mmol/L High 98-107 [facility] Comment on above: Performed By: #### 1 988-5 #### [facility] [address] [place] [address] CO2 [Moles/Vol] 22 mmol/L Normal 22-[address] [facility] Comment on above: Performed By: #### 1 988-5 #### [facility] [address] [place] [address] Creatinine [Mass/Vol] 1.19 mg/dL Normal 0.60-1.30 [facility] Comment on above: Performed By: #### 1 988-5 #### [facility] [address] [place] [address] GFR/1.73 sq M.predicted among non-blacks MDRD (S/P/Bld) [Vol rate/Area] 51 mL/min/{1.73_m2} Low >=60 [facility] Comment on above: Result Comment: Effe ctive January 08, 2022, calculation based on the?Chronic Kidney Disease Epidemiology Collaboration (CKD-EPI) equation refit?without adjustment for race. Performed By: #### 1 988-5 #### [facility] [address] [place] [address] Glucose [Mass/Vol] 135 mg/dL High 70-99 [facility] Comment on above: Performed By: #### 1 988-5 #### [facility] [address] [facility] [place] [address] Potassium [Moles/Vol] 4.6 mmol/L Normal 3.6-5.1 [facility] Comment on above: Performed By: #### 1 988-5 #### [facility] [address] [facility] [place] [address] Sodium [Moles/Vol] 139 mmol/L Normal 136-145 [facility] Comment on above: Performed By: #### 1 988-5 #### [facility] [address] [place] [address] Urea nitrogen [Mass/Vol] 19 mg/dL Normal 8-20 [facility] Comment on above: Performed By: #### 1 988-5 #### [facility] [address] [place] [address] Urea nitrogen/Creatinine [Mass ratio] 16.0 mg/mg Normal 12.0-20.0 [facility] Comment on above: Performed By: #### 1 988-5 #### [facility] [address] [place] [address] Anion gap [Moles/Vol] 9 mmol/L 6 - 18 [facility] Calcium [Mass/Vol] 8.2 mg/dL Low 8.9 - 10. 3 mg/dL [facility] Chloride [Moles/Vol] 108 mmol/L High 98 - 10 7 mmol/L [facility] CO2 [Moles/Vol] 22 mmol/L 22 - 32 mmol/L [facility] Creatinine [Mass/Vol] 1.19 mg/dL 0.60 - 1.30 mg/dL [facility] GFR/1.73 sq M.predicted among non-blacks MDRD (S/P/Bld) [Vol rate/Area] 51 mL/min/{1.73_m2} Low - PINF [facility] Comment on above: Effective January 08, 2022, calculation based on the Chronic Kidney Disease Epidemiology Collaboration (CKD-EPI) equation refit without adjustment for race. Glucose [Mass/Vol] 135 mg/dL High 70 - 99 mg/dL [facility] Interpretation and review of laboratory results Abnormal [facility] Potassium [Moles/Vol] 4.6 mmol/L 3.6 - 5.1 mmol/L [facility] Sodium [Moles/Vol] 139 mmol/L 136 - 145 mmol/L [facility] Urea nitrogen [Mass/Vol] 19 mg/dL 8 - 20 mg/dL [facility] Urea nitrogen/Creatinine [Mass ratio] 16.0 mg/mg 12.0 - 20.0 [facility] Hemogram and platelets WO di fferential panel (Bld)on 04-21-2022 Erythrocyte distribution width (RBC) [Ratio] 15.9 % High 11.0-14.8 [facility] Comment on above: Performed By: #### 1 988-5 #### [facility] [address] [place] [address] Hematocrit (Bld) [Volume fraction] 37.0 % Normal 34.3-47.9 [facility] Comment on above: Performed By: #### 1 988-5 #### [facility] [address] [place] [address] Hemoglobin (Bld) [Mass/Vol] 11.6 g/dL Low 12.0-16.0 [facility] Comment on above: Performed By: #### 1 988-5 #### [facility] [address] [place] [address] MCH 28.2 pcg Normal 27.0-34.0 [facility] Comment on above: Performed By: #### 1 988-5 #### [facility] [address] [place] [address] MCHC (RBC) [Mass/Vol] 31.4 g/dL Normal 30.8-35.3 [facility] Comment on above: Performed By: #### 1 988-5 #### [facility] [address] [place] [address] MCV (RBC) [Entitic vol] 90.0 fL Normal 80.0-97.0 [facility] Comment on above: Performed By: #### 1 988-5 #### [facility] [address] [place] [address] Platelet mean volume (Bld) [Entitic vol] 12.3 fL High 6.2-12.1 [facility] Comment on above: Performed By: #### 1 988-5 #### [facility] [address] [place] [address] Platelets (Bld) [#/Vol] 220 10*3/uL Normal 142-424 [facility] Comment on above: Performed By: #### 1 988-5 #### [facility] [address] [place] [address] RBC (Bld) [#/Vol] 4.11 10*6/uL Normal 3.74-5.34 [facility] Comment on above: Performed By: #### 1 988-5 #### [facility] [address] [place] [address] WBC (Bld) [#/Vol] 13.5 10*3/uL High 4.6-10.2 [facility] Comment on above: Performed By: #### 1 988-5 #### [facility] [address] [place] [address] Erythrocyte distribution width (RBC) [Ratio] 15.9 % High 11.0 - 14.8 % [facility] Hematocrit (Bld) [Volume fraction] 37.0 % 34.3 - 47.9 % [facility] Hemoglobin (Bld) [Mass/Vol] 11.6 g/dL Low 12.0 - 16.0 g/dL [facility] Interpretation and review of laboratory results Abnormal [facility] MCH (RBC) [Entitic mass] 28.2 pg [facility] MCHC (RBC) [Mass/Vol] 31.4 g/dL 30.8 - 35.3 g/dL [facility] MCV (RBC) [Entitic vol] 90.0 fL [facility] Platelet mean volume (Bld) [Entitic vol] 12.3 fL High [facility] th Platelets (Bld) [#/Vol] 220 10*3/uL [facility] RBC (Bld) [#/Vol] 4.11 10*6/uL [facility] WBC (Bld) [#/Vol] 13.5 10*3/uL High [facility] Pathology studyOrdered By: Valerie Segura on 04-21-2022 Citation Rick (Reference lab test) g7pcoOOoWXDpqQQzVIIkP YpotlEjLIBomRKoY1Wpsk iiHRbvRD5iJI3jfXvdxXF zvJIuGFMuSfZsy6drl637 dIZkd0fvWPJLruhyvEo3m 0vzOUJHXScgDFSARXa8lS mtJ31db9H7HoidW7cpWQK tCDlbakTryxT9JNTduJWp NNd9GBMxkKJcclBeUyXvL SKrvEXnrTH9DIHoSK4bqz vyERviKYumJBKvabX4HZI xeZAhV3EqVODhXS4vqybg HYQ5GEreNGJfMMH8MjBqB KOnv6Zeglc5YpIoqEHbIU xwbGFpblxpXGYxXGZzMTh yS5ZwZIMrPLK6EEEhrqni IAqzN09uyX4zBL11EDmwh uXaGUHth0NhWUEgNUSxKR vhLBGtcjBmHZjkkD1ey6n 1ADnvPv3qZIVmaprxJAP4 ZmZlZN01StgdxOKvTWXAa mUsIENvbHVtYnVzLCBPaG azKGUfRnW6OsVIsXWve2V qb7GfShHswWQnxD2qlYlo ehL5ZVSbdXHkWw2wsMQqM lxwYXJ9 [facility] [employer] Work Phone: Microscopic description Rick ([employer]) c2fbcADcPEAeeBLSVSXzR RCsWG7wsShdnWi9nCdgLS GiarP3kDFyBZyre8kyXON 8h2slamQJRjxjMWFfKT1p YPnoHZDkLU4lUcWhUHTmK mYyXHBhcGVydzEyMjQwXH NjrMPmtZL2ADKsAE3qbqw aNLegVSueALNbusH5HAMt eGZlC2ReAWCcWO1aptglO VA9JVOSBjebLy3exNYlgX ANCntcZjFcZmNoYXJzZXQ tJCTtxIzeSNGjVQz1xW3O m6jrIxpcQ1xjjsTdmWIlU g7odLYWWWheJJUUIJp5pE 5HLKVvS1OzVL6Dd6zpLZO sqNOxYAA5DBtrc5wrIFsj DPC2WPDbORBiVSLyKV1LJ oUqGZMeKdB5BlM6HfP7SX f7TSOVQKXrNQy9IbjqGVf 1HRo5RWermvhuNQq2AGAi YAuxkDTmVH9mlHmnEeywu Uejh4NnhIUsCOMiSBftlJ QgNTEwMDIgXFxkYiBPVlI gLyJwADl8JEpoRTCdOBg7 WTirK3SFYAWhTFR9UnNyC OPhHyK7GZl6GRSHLh8pUu W8BmOzRZM5KlD0SAUbRSN cXHQgMiBcXHNzIDMgXFxm gIUjSO9ksChjSBKrWT5FN HBsYWluXGYxXGZzMjAgQS 0jV42jXMzfHITsxRsuXxJ uTKMioWGlsPTokWSjl7P7 lCLcEEb5eLIhc0O0cIegM GluZmlsdHJhdGVzOlxwYX IgDQpccGFyZCANClxwbGF pblxmMVxmczIwXHBsYWlu HIx5bfSdREGlQvCxLEOrC 26fy7ZAo5DbNH7VATg1ss VapmgdsT1vCOWsljWsSMg cZjFcZnMyMCBSZWNlaXZl UOAsbpHtp0ZzNKerkkEcV ANrdLYuFAcjeBfgkAG8pN RheQRkZB2aZDTtYBAuUBB 1lMUmk4F6RALysxo9DSNx iXewlcJwlD8ddR7oeKSeL yBpbmZpbHRyYXRlcywgbG VmdCBrbmVlIiBpcyBhIDM jH90oMLbytuQrIDVcOS9o PUL2n3o4AMBlvp1iwcU9K EUkZeCrX1ZfrWjjBTasch 99stW1fHMmzSHqTDTPnDA gh3RbZ7qvDU3llZAifxYm bzHjUG05ODNwwyHsjVVut TNadXF3TLLizC3yCdcaY7 sgQTEuXHBhciANClxwYXI zKWelr9DfQGrmxRoaOXSh HaIwECbyzaq4QX4GGAJqJ FxlcGljWHNhMCANClxlcG alMwRtnOWhFfA4UVEngMZ uLEE6CU9vgVttJKTpH4Dm J5HhvgI5YKDvplLBGkscT zusamMtAE7VzH== [employer] Work Phone: Pathology report final diagnosis Narrative t8uozUHqBKAvvIYkBHOfR KbgfpSnPQBhlFBoP1Gpcq owPBlqDM3wDY1tmMbacNB elADoSNDtDgWxy4yof939 bZXfo4nvREUKjdkbhGb5x WgsU25rm7S4AibvK0swYR QwXGdyZWVuMFxibHVlMDt 9XHBhcGVydzEyMjQwXHBh gYSouQF2NAMiYL6gnyegE ViqUPipPOJcteU0WILrmX HdK6MlQEFlGK6jaknsWVQ 5PRhcQXWmSXY1JoLtMVHk p0Uorxo1GdDdsVm8p9dgW STsUGUwvNctg1jrAEK7NT IxhOBvV1vsxC6jZKElVM4 ltdhpt7alKAgdWTbwVCDy lYG7wrJ5WFItiVMsS2Nzy J2lVEFlGYPjkeHkaQjiRy D6KCwmeLBsrqtaGkEuD69 avWF9dGEptFFdSPpxCvGi P1oxQWHmbilbuVApVRDjS WQGcOolMO9rquWhFNNjSf bbSAavHdemwA1fpOlcci8 ccGFyICAgLSBOZWdhdGl2 ZKRcv2Ecy6wsneyufBJrg wPtjRGdqHRou4Q4nYIvCH o1kQCra2L4tVngJHulHwo znA1stZugek7uhTLjxM== [employer] Work Phone: [employer] Phone: Bacteria Spec Anaerobe Culto n 04-20-2022 Bacteria identified Anaer cx Nom (Unsp spec) Culture, Anaerobic Status = F No anaerobes grown after 4 days. Normal [facility] Comment on above: Performed By: #### 3 4556-1 #### [facility] ([facility]) [facility] [address] [place] [address] Performed By: #### 5 75-1 #### [facility] [address] [place] [address] Bacteria identified Anaer cx Nom (Unsp spec) Culture, Anaerobic Status = F No anaerobes grown after 4 days. Normal [facility] Comment on above: Performed By: #### 3 4556-1 #### [facility] [address] [place] [address] Bacteria Spec BFld Culton Bacteria identified Sterile [...] to a previously preliminary verified report. Normal [facility] Comment on above: Performed By: #### 6 36-1 #### [facility] ([facility]) LAB [address] [place] [address] Bacteria Tiss Culton 023 Bacteria identified Cx [...] to a previously preliminary verified report. Normal [facility] Comment on above: Performed By: #### 3 4556-1 #### [facility] [address] [place] [address] Performed By: #### 5 75-1 #### [facility] ([facility]) LAB [address] [place] [address] Cell count panel (Body fld)o n 04-20-2022 Fluid Eosinophils 4.0 % Normal [facility] Comment on above: Performed By: #### 1 988-5 #### [facility] [address] [place] [address] Fluid Lining Cells 1.0 % Normal [facility] Comment on above: Performed By: #### 1 988-5 #### [facility] ([facility] [address] [place] [address] Fluid Lymphocytes 46.0 % Normal [facility] Comment on above: Performed By: #### 1 988-5 #### [facility] ([facility] [address] [place] [address] Fluid Monocytes/Macrophages 24.0 % Normal [facility] Comment on above: Performed By: #### 1 988-5 #### [facility] ([facility] [address] [place] [address] Fluid Neutrophils 25.0 % Normal [facility] Comment on above: Performed By: #### 1 988-5 #### [facility] ([facility] [address] [place] [address] Clarity (Body fld) [facility] Color (Body fld) [place] [employer] RBC Auto (Body fld) [#/Vol] 93743 /mm3 [facility] Comment on above: The reference range and other method performance specifications have not been established for this fluid specimen. The test result should be integrated into the clinical context for interpretation. Specimen source Nom (Body fld) [place] [employer] WBC (Body fld) [#/Vol] 111 /mm3 [facility] Comment on above: The reference range and other method performance specifications have not been established for this fluid specimen. The test result should be integrated into the clinical context for interpretation. [facility] Differential panel (Body fld )Ordered By: [...] F No growth at 4 weeks Normal [facility] Comment on above: Performed By: #### 5 75-1 #### [facility] ([facility]) [facility] [address] [place] [id number] Performed By: #### 3 4556-1 #### [facility] [address] [place] [id number] Fungus identified Cx Nom (Skin) Culture, Fungus Status = F No growth at 4 weeks Normal [facility] Comment on above: Performed By: #### 5 75-1 #### [facility] [address] [place] [id number] Glucose Auto test strip (Bld ) [Mass/Vol]on 04-20-2022 Glucose [Mass/Vol] 135 mg/dL High 70-99 [facility] Comment on above: Performed By: #### 1 988-5 #### [facility] [address] [place] [address]2002 Glucose [Mass/Vol] 135 mg/dL High 70 - 99 mg/dL [facility] Interpretation and review of laboratory results Abnormal [facility] Mycobacterium Spec Culton Mycobacterium sp identified Org specific cx Nom (Unsp spec) Culture AFB Status = F No growth at 8 weeks AFB Stain Status = F No acid fast bacilli seen Normal [facility] Comment on above: Performed By: #### 5 43-9 #### [facility] [address] [place] [id number] Performed By: #### 3 4556-1 #### [facility] [address] [place] [id number] Performed By: #### 5 75-1 #### [facility] [address] [place] [address]71 Mycobacterium sp identified Org specific cx Nom (Unsp spec) Culture AFB Status = F No growth at 8 weeks AFB Stain Status = F No acid fast bacilli seen Normal [facility] Comment on above: Performed By: #### 5 75-1 #### [facility] ([facility]) LAB [address] [place] [address] No Panel InformationOrdered By: Hilary Albarran on 04-20-2022 [employer] PT Coag (PPP) [Time]on 04-20 aPTT Coag (Bld) [Time] 22.0 s Low 23.3-35.3 [facility] Comment on above: Performed By: #### 1 988-5 #### [facility] [facility] ([facility]) [facility] [address] [facility] [place] [address] PT Coag (PPP) [Time]Ordered By: Hilary Albarran on 04-20-2022 INR Coag (PPP) [Relative time] 1.0 {INR} NINF - 5.0 [facility] Comment on above: The recommended ther apeutic INR range for most cardiac indications is 2.0-3.0 For high intensity therapy (i.e. mechanical heart valves), the recommended range is 2.5-3.5 Interpretation and review of laboratory results Normal [facility] PT Coag (Bld) [Time] 13.4 s [facility] Pathology studyon 04-20-2022 Pathology study Soft tissue, left [place]: - Mild nonspecific inflammation. - Negative for significant perivascular lymphocytic inflammation. A. Knee, Left, Rule out perivascular lymphocytic infiltrates: Received in formalin labeled with patient name and rule out perivascular lymphocytic infiltrates, left knee is a 3 cm aggregate of dusky rogers-trujillo fibrocartilaginous tissue. The specimen is representatively submitted in block A1. (zhw) The technical component was performed at [facility], [address] [place] [id number]. Microscopic examination was performed. Normal [facility] Comment on above: Performed By: #### 1 1526-1 #### [facility] ([facility] [address] [place] [address] [facility] ([facility] [address] [place] [address] XR KNEE 1-2 VIEWS LEFTon XR KNEE [...] Self Edit Transcribed Date: 04/20/2022 16:06 Normal [facility] XR Knee 1-2 Views Lefton FINDINGS/IMPRESSION: [...] By: Self Edit Transcribed Date: 04/20/2022 16:06 [facility] Radiology Study observation (narrative) [facility] XR Knee 1-2 Views LeftOrdere d By: Heriberto Saldana on 04-20-2022 [employer] [employer] Work Phone: aPTT Coag (Bld) [Time]on aPTT Coag (PPP) [Time] 22.0 s Low [facility] Interpretation and review of laboratory results Abnormal [employer] [facility] Covid-19 PCR (CVDTBH)on 04-02 SARS-CoV-2 (COVID-19) RNA REBECCA+probe Ql (Unsp spec) Not detected Normal NOT DETECTED [facility] Comment on above: Result Comment: [...] for this test is supported by the Century of Health and Human Service's declaration that [...] be used). Performed By: #### C #### [facility] [address] [place], [place] [address] Dr. Jeffrey Thomas Bacteria Spec Anaerobe Culto n 04-05-2022 Bacteria identified Anaer cx Nom (Unsp spec) Culture, Anaerobic Status = F No anaerobes grown after 4 days. Normal [facility] Comment on above: Performed By: #### 5 75-1 #### [facility] [address] [place] [address] Bacteria Spec BFld Culton Bacteria identified Sterile [...] to a previously preliminary verified report. Normal [facility] Comment on above: Performed By: #### 5 75-1 #### [facility] ([facility]) [facility] [address] [place] [address] Blood type and Indirect anti body screen panel (Bld)on 04-05-2022 ABO group Nom (Bld) A Normal [facility] Comment on above: Performed By: #### 3 4532-2 #### [facility] [address] [place] [address] Rh Type Positive Normal [facility] Comment on above: Performed By: #### 3 4532-2 #### [facility] [address] [place] [address] CRP [Mass/Vol]on 04-05-2022 Anion gap [Moles/Vol] 9 mmol/L Normal 6-18 [facility] Comment on above: Performed By: #### 1 988-5 #### [facility] [address] [place] [address] Calcium [Mass/Vol] 9.4 mg/dL Normal 8.9-10.3 [facility] Comment on above: Performed By: #### 1 988-5 #### [facility] [address] [place] [address] Chloride [Moles/Vol] 105 mmol/L Normal 98-107 [facility] Comment on above: Performed By: #### 1 988-5 #### [facility] [address] [facility] [place] [address] CO2 [Moles/Vol] 24 mmol/L Normal 22-[address] [facility] Comment on above: Performed By: #### 1 988-5 #### [facility] [address] [facility] [place] [address] Creatinine [Mass/Vol] 1.07 mg/dL Normal 0.60-1.30 [facility] Comment on above: Performed By: #### 1 988-5 #### [facility] [address] [place] [address] GFR/1.73 sq M.predicted among non-blacks MDRD (S/P/Bld) [Vol rate/Area] 58 mL/min/{1.73_m2} Low >=60 [facility] Comment on above: Result Comment: Effe ctive January 08, 2022, calculation based on the?Chronic Kidney Disease Epidemiology Collaboration (CKD-EPI) equation refit?without adjustment for race. Performed By: #### 1 988-5 #### [facility] [address] [place] [address] Glucose [Mass/Vol] 97 mg/dL Normal 70-99 [facility] Comment on above: Performed By: #### 1 988-5 #### [facility] [address] [facility] [place] [address] Potassium [Moles/Vol] 4.9 mmol/L Normal 3.6-5.1 [facility] Comment on above: Performed By: #### 1 988-5 #### [facility] [address] [place] [address] Sodium [Moles/Vol] 138 mmol/L Normal 136-145 [facility] Comment on above: Performed By: #### 1 988-5 #### [facility] [address] [place] [address] Urea nitrogen [Mass/Vol] 22 mg/dL High 8-20 [facility] Comment on above: Performed By: #### 1 988-5 #### [facility] [address] [place] [address] Urea nitrogen/Creatinine [Mass ratio] 20.6 mg/mg High 12.0-20.0 [facility] Comment on above: Performed By: #### 1 988-5 #### [facility] [address] [place] [address] Cell count panel (Body fld)o n 04-05-2022 Fluid Eosinophils 3.0 % Normal [facility] Comment on above: Result Comment: Boy ected result: Previously reported as 6.0 % on 04/05/2022 at 1416 EST. Performed By: #### 3 4556-1 #### [facility] [address] [place] [address] Fluid Lymphocytes 34.0 % Normal [facility] Comment on above: Result Comment: Boy ected result: Previously reported as 43.0 % on 04/05/2022 at 1416 EST. Performed By: #### 3 4556-1 #### [facility] [address] [place] [address] Fluid Monocytes/Macrophages 23.0 % Normal [facility] Comment on above: Result Comment: Boy ected result: Previously reported as 9.0 % on 04/05/2022 at 1416 EST. Performed By: #### 3 4556-1 #### [facility] [address] [place] [address] Fluid Neutrophils 40.0 % Normal [facility] Comment on above: Result Comment: Boy ected result: Previously reported as 39.0 % on 04/05/2022 at 1416 EST. Performed By: #### 3 4556-1 #### [facility] [address] [place] [address] Fluid Other Cells Normal [facility] Comment on above: Result Comment: Lini ng cells Corrected result: Previously reported as 3.0 % on 04/05/2022 at 1416 EST. Performed By: #### 3 4556-1 #### [facility] [address] [place] [address] Fungus Skin Culton Fungus identified Cx Nom (Skin) Culture, Fungus Status = F No growth at 4 weeks Normal [facility] Comment on above: Performed By: #### 3 4556-1 #### [facility] [address] [place] [address] Hemogram and platelets WO di fferential panel (Bld)on 04-05-2022 Sed Rate 41 mm/hr High 0-20 [facility] Comment on above: Performed By: #### 5 75-1 #### [facility] [address] [place] [address] Mycobacterium Spec Culton Mycobacterium sp identified Org specific cx Nom (Unsp spec) Culture AFB Status = F No growth at 8 weeks AFB Stain Status = F No acid fast bacilli seen Normal [facility] Comment on above: Performed By: #### 1 988-5 #### [facility] [address] [place] [address] Basic metabolic 2000 panelon 01-05-2022 Anion gap [Moles/Vol] 12 mmol/L [facility] Calcium [Mass/Vol] 9.1 mg/dL 8.9 - 10. 3 mg/dL [facility] Chloride [Moles/Vol] 103 mmol/L 98 - 10 7 mmol/L [facility] CO2 [Moles/Vol] 19 mmol/L Low 22 - 32 mmol/L [facility] Creatinine [Mass/Vol] 1.28 mg/dL 0.60 - 1.30 mg/dL [facility] GFR/1.73 sq M.predicted MDRD (S/P/Bld) [Vol rate/Area] 44 mL/min/{1.73_m2} Low >=60 mL/min/1.73m 2 [facility] Glucose [Mass/Vol] 99 mg/dL 70 - 99 mg/dL [facility] Interpretation and review of laboratory results Abnormal [facility] Potassium [Moles/Vol] 5.1 mmol/L 3.6 - 5.1 mmol/L [facility] Sodium [Moles/Vol] 134 mmol/L Low 136 - 145 mmol/L [facility] Urea nitrogen [Mass/Vol] 34 mg/dL High 8 - 20 mg/dL [facility] Urea nitrogen/Creatinine [Mass ratio] 26.6 mg/mg High [facility] and platelets WO di fferential panel (Bld)on 01-05-2022 Basophils (Bld) [#/Vol] 0.10 10*3/uL [facility] Basophils/100 WBC (Bld) 0.8 % 0.0 - 2.0 % [facility] Eosinophils (Bld) [#/Vol] 0.29 10*3/uL [facility] Eosinophils/100 WBC (Bld) 2.3 % 0.0 - 7.0 % [facility] Erythrocyte distribution width (RBC) [Ratio] 15.8 % High 11.0 - 14.8 % [facility] Hematocrit (Bld) [Volume fraction] 35.6 % 34.3 - 47.9 % [facility] Hemoglobin (Bld) [Mass/Vol] 10.7 g/dL Low 12.0 - 16.0 g/dL [facility] Immature granulocytes (Bld) [#/Vol] 0.06 10*3/uL [facility] Immature granulocytes/100 WBC (Bld) 0.5 % 0.0 [...] mean volume (Bld) [Entitic vol] 11.8 [facility] Plate[facility] (Bld) [#/Vol] 194 10*3/uL [facility] RBC (Bld) [#/Vol] 3.39 10*6/uL Low [facility] WBC (Bld) [#/Vol] 12.7 10*3/uL High [facility] Manual Differential panel (B [...] 71.0 % 38.1 - 75.5 % [facility] PT Coag (PPP) [Time]on 01-05 INR Coag (PPP) [Relative time] 1.0 {INR} <=5.0 [facility] Comment on above: The recommended ther apeutic INR range for most cardiac indications is 2.0-3.0 For high intensity therapy (i.e. mechanical heart valves), the recommended range is 2.5-3.5 Interpretation and review of laboratory results Normal [facility] PT Coag (Bld) [Time] 13.0 [facility] Basic metabolic 2000 panelon 01-04-2022 Anion gap [Moles/Vol] 9 mmol/L [facility] Calcium [Mass/Vol] 8.9 mg/dL 8.9 - 10. 3 mg/dL [facility] Chloride [Moles/Vol] 103 mmol/L 98 - 10 7 mmol/L [facility] CO2 [Moles/Vol] 21 mmol/L Low 22 - 32 mmol/L [facility] Creatinine [Mass/Vol] 1.00 mg/dL 0.60 - 1.30 mg/dL [facility] GFR/1.73 sq M.predicted MDRD (S/P/Bld) [Vol rate/Area] 59 mL/min/{1.73_m2} Low >=60 mL/min/1.73m 2 [facility] Glucose [Mass/Vol] 129 mg/dL High 70 - 99 mg/dL [facility] Interpretation and review of laboratory results Abnormal [facility] Potassium [Moles/Vol] 5.0 mmol/L 3.6 - 5.1 mmol/L [facility] Sodium [Moles/Vol] 133 mmol/L Low 136 - 145 mmol/L [facility] Urea nitrogen [Mass/Vol] 26 mg/dL High 8 - 20 mg/dL [facility] Urea nitrogen/Creatinine [Mass ratio] 26.0 mg/mg High [facility] Hemogram and platelets WO di fferential panel (Bld)on 01-04-2022 Basophils (Bld) [#/Vol] 0.03 10*3/uL [facility] Basophils/100 WBC (Bld) 0.2 % 0.0 - [...] Health Lymphocytes (Bld) [#/Vol] 2.77 10*3/uL [facility] Lymphocytes/100 WBC (Bld) 19.0 % 17.9 - 49.6 % [facility] Monocytes (Bld) [#/Vol] 1.31 10*3/uL High [facility] Monocytes/100 WBC (Bld) 9.0 % 0.0 - 12.0 % [facility] Segmented neutrophils (Bld) [#/Vol] 10.51 10*3/uL High [facility] Segmented neutrophils/100 WBC (Bld) 72.0 % 38.1 - 75.5 % [facility] PT Coag (PPP) [Time]Ordered By: Hilary Albarran on 01-04-2022 INR Coag (PPP) [Relative time] 0.9 {INR} <=5.0 [facility] Comment on above: The recommended ther apeutic INR range for most cardiac indications is 2.0-3.0 For high intensity therapy (i.e. mechanical heart valves), the recommended range is 2.5-3.5 Interpretation and review of laboratory results Normal [facility] PT Coag (Bld) [Time] 12.6 s [facility] Glucose Auto test strip (Bld ) [Mass/Vol]on 01-03-2022 Glucose [Mass/Vol] 144 mg/dL High 70 - 99 mg/dL [facility] Interpretation and review of laboratory results Abnormal [facility] Covid-19 PCR (CVDTB)on SARS-CoV-2 (COVID-19) RNA REBECCA+probe Ql (Unsp spec) Not detected Normal NOT DETECTED [facility] Comment on above: Result Comment: [...] for this test is supported by the Century of Health and Human Service's declaration that [...] used). Performed By: #### C MP #### [facility] [address] [place] [address] Dr. Jeffrey Thomas CBC AUTO DIFFon 12-14-2021 BASO # 0.1 103/ul Normal 0.0-0.1 [facility] Comment on above: Performed By: #### T 4LC #### [facility] [address] [place] [address] Dr. Jeffrey Thomas Basophils/100 WBC (Bld) 1.2 % Normal 0.2-2.0 [facility] Comment on above: Performed By: #### T 4LC #### [facility] [address] [place] [address] Dr. Jeffrey Thomas EO # 0.2 103/ul Normal 0.0-0.7 [facility] Comment on above: Performed By: #### T 4LC #### [facility] [address] [place] [address] Dr. Jeffrey Thomas Eosinophils/100 WBC (Bld) 3.2 % Normal 0.9-7.0 [facility] Comment on above: Performed By: #### T 4LC #### [facility] [address] [place] [address] Dr. Jeffrey Thomas Erythrocyte distribution width (RBC) [Ratio] 15.9 % Critically high 11.0-15.0 [facility] Comment on above: Performed By: #### T 4LC #### [facility] [address] [place] [address] Dr. Jeffrey Thomas Hematocrit (Bld) [Volume fraction] 35.1 % Critically low 36.0-48.0 [facility] Comment on above: Performed By: #### T 4LC #### [facility] [address] [place] [address] Dr. Jeffrey Thomas Hemoglobin (Bld) [Mass/Vol] 10.8 g/dL Critically low 12.0-16.0 [facility] Comment on above: Performed By: #### T 4LC #### [facility] [address] [place] [address] Dr. Jeffrey Thomas IG # 0.03 10e3/ul Normal 0.00-0.03 [facility] Comment on above: Performed By: #### T 4LC #### [facility] [address] [place] [address] Dr. Jeffrey Thomas IG % 0.4 % Normal 0.0-0.5 [facility] Comment on above: Performed By: #### T 4LC #### [facility] [address] [place] [address] Dr. Jeffrey Thomas LYMPH # 2.1 103/ul Normal 1.2-3.8 [facility] Comment on above: Performed By: #### T 4LC #### [facility] [address] [place] [address] Dr. Jeffrey Thomas Lymphocytes/100 WBC (Bld) 30.8 % Normal 20.5-60.0 [facility] Comment on above: Performed By: #### T 4LC #### [facility] [address] [place] [address] Dr. Jeffrey Thomas MANUAL DIFF REQ NO Normal [facility] Comment on above: Performed By: #### T 4LC #### [facility] [address] [place] [address] Dr. Jeffrey Thomas MCH (RBC) [Entitic mass] 30.3 pg Normal 26.7-34.0 [facility] Comment on above: Performed By: #### T 4LC #### [facility] [address] [place] [address] Dr. Jeffrey Thomas MCHC (RBC) [Mass/Vol] 30.8 g/dL Normal 29.9-35.2 [facility] Comment on above: Performed By: #### T 4LC #### [facility] [address] [place] [address] Dr. Jeffrey Thomas MCV (RBC) [Entitic vol] 98.6 fL Normal 81.0-99.0 [facility] Comment on above: Performed By: #### 4LC #### [facility] [address] [place] [address] [address] Jeffrey Thomas MONO # 0.5 103/ul Normal 0.3-0.8 [facility] Comment on above: Performed By: #### 4LC #### [facility] [address] [place] [address] [address] Jeffrey Thomas Monocytes/100 WBC (Bld) 7.5 % Normal 1.7-12.0 [facility] Comment on above: Performed By: #### 4LC #### [facility] [address] [place] [address] [address] Jeffrey Thomas NEUT # 3.9 103/ul Normal 1.4-6.5 [facility] Comment on above: Performed By: #### 4LC #### [facility] [address] [place] [address] Dr. Jeffrey Thomas Neutrophils/100 WBC (Bld) 56.9 % Normal 43.0-75.0 [facility] Comment on above: Performed By: #### 4LC #### [facility] [address] [place] [address] Dr. Jeffrey Thomas Platelet mean volume (Bld) [Entitic vol] 12.0 fL Normal 9.5-13.5 [facility] Comment on above: Performed By: #### 4LC #### [facility] [address] [place] [address] [address] Jeffrey Thomas PLT 209 103/ul Normal 150-450 [facility] Comment on above: Performed By: #### 4LC #### [facility] [address] [place] [address] [address] Jeffrey Thomas RBC 3.56 106/ul Critically low 4.20-5.40 [facility] Comment on above: Performed By: #### T 4LC #### [facility] [address] [place] [address] [address] Jeffrey Thomas WBC 6.8 103/ul Normal 4.0-11.0 [facility] Comment on above: Performed By: #### 4LC #### [facility] [address] [place] [address] [address] Jeffrey Thomas PROF 14(COMP METB)on 022 Albumin [Mass/Vol] 2.5 g/dL Critically low 3.4-5.0 [facility] Comment on above: Performed By: #### L ACT #### [facility] [address] [place] [address] [address] Jeffrey Thomas Albumin/Globulin [Mass ratio] 1.0 {ratio} Normal [facility] Comment on above: Performed By: #### L ACT #### [facility] [address] [place] [address] Dr. Jeffrey Thomas ALP [Catalytic activity/Vol] 94 U/L Normal 46-116 [facility] Comment on above: Performed By: #### L ACT #### [facility] [address] [place] [address] Dr. Jeffrey Thomas ALT [Catalytic activity/Vol] 9 U/L Critically low 14-59 [facility] Comment on above: Performed By: #### L ACT #### [facility] [address] [place] [address] Dr. Jeffrey Thomas Anion gap [Moles/Vol] 11.7 mmol/L Normal [facility] Comment on above: Performed By: #### L ACT #### [facility] [address] [place] [address] Dr. Jeffrey Thomas AST [Catalytic activity/Vol] 6 U/L Critically low 15-37 [facility] Comment on above: Performed By: #### L ACT #### [facility] [address] [place] [address] Dr. Jeffrey Thomas Bilirubin [Mass/Vol] 0.1 mg/dL Critically low 0.2-1.0 [facility] Comment on above: Performed By: #### L ACT #### [facility] [address] [place] [address] Dr. Jeffrey Thomas Calcium [Mass/Vol] 8.2 mg/dL Critically low 8.5-10.1 [facility] Comment on above: Performed By: #### L ACT #### [facility] [address] [place] [address] [address] Jeffrey Thomas Chloride [Moles/Vol] 111 mmol/L Critically high 98-107 [facility] Comment on above: Performed By: #### L ACT #### [facility] [address] [place] [address] [address] Jeffrey Thomas CO2 [Moles/Vol] 22.5 mmol/L Normal 21.0-32.0 [facility] Comment on above: Performed By: #### L ACT #### [facility] [address] [place] [address] [address] Jeffrey Thomas Creatinine [Mass/Vol] 0.87 mg/dL Normal 0.55-1.02 [facility] Comment on above: Performed By: #### L ACT #### [facility] [address] [place] [address] Dr. Jeffrey Thomas EGFR-AF VINCENTIAN >60 Normal >=60 [facility] Comment on above: Performed By: #### L ACT #### [facility] [address] [place] [address] Dr. Jeffrey Thomas EGFR-NON AF VINCENTIAN >60 Normal >=60 [facility] Comment on above: Performed By: #### L ACT #### [facility] [address] [place] [address] Dr. Jeffrey Thomas Globulin (S) [Mass/Vol] 2.6 g/dL Normal [facility] Comment on above: Performed By: #### L ACT #### [facility] [address] [place] [address] [address] Jeffrey Thomas Glucose [Mass/Vol] 111 mg/dL Critically high 74-106 [facility] Comment on above: Performed By: #### L ACT #### [facility] [address] [place] [address] Dr. Jeffrey Thomas Potassium [Moles/Vol] 4.2 mmol/L Normal 3.5-5.1 [facility] Comment on above: Performed By: #### L ACT #### [facility] [address] [place] [address] Dr. Jeffrey Thomas Protein [Mass/Vol] 5.1 g/dL Critically low 6.4-8.2 [facility] Comment on above: Performed By: #### L ACT #### [facility] [address] [place] [address] Dr. Jeffrey Thomas Sodium [Moles/Vol] 141 mmol/L Normal 136-145 [facility] Comment on above: Performed By: #### L ACT #### [facility] [address] [place] [address] Dr. Jeffrey Thomas Urea nitrogen [Mass/Vol] 31.0 mg/dL Critically high 7.0-18.0 [facility] Comment on above: Performed By: #### L ACT #### [facility] [address] [place] [address] Dr. Jeffrey Thomas Urea nitrogen/Creatinine [Mass ratio] 35.6 mg/mg Normal [facility] Comment on above: Performed By: #### L ACT #### [facility] [address] [place] [address] Dr. Jeffrey Thomas CBC AUTO DIFFon 12-13-2021 BASO # 0.1 103/ul Normal 0.0-0.1 [facility] Comment on above: Performed By: #### L ACT #### [facility] [address] [place] [address] Dr. Jeffrey Thomas Basophils/100 WBC (Bld) 1.3 % Normal 0.2-2.0 [facility] Comment on above: Performed By: #### L ACT #### [facility] [address] [place] [address] Dr. Jeffrey Thomas EO # 0.3 103/ul Normal 0.0-0.7 [facility] Comment on above: Performed By: #### L ACT #### [facility] [address] [place] [address] Dr. Jeffrey Thomas Eosinophils/100 WBC (Bld) 3.8 % Normal 0.9-7.0 [facility] Comment on above: Performed By: #### L ACT #### [facility] [address] [place] [address] Dr. Jeffrey Thomas Erythrocyte distribution width (RBC) [Ratio] 15.7 % Critically high 11.0-15.0 [facility] Comment on above: Performed By: #### L ACT #### [facility] [facility] [address] [place] [address] Dr. Jeffrey Thomas Hematocrit (Bld) [Volume fraction] 35.7 % Critically low 36.0-48.0 [facility] Comment on above: Performed By: #### L ACT #### [facility] [address] [place] [address] Dr. Jeffrey Thomas Hemoglobin (Bld) [Mass/Vol] 11.5 g/dL Critically low 12.0-16.0 [facility] Comment on above: Performed By: #### L ACT #### [facility] [address] [place] [address] Dr. Jeffrey Thomas IG # 0.04 10e3/ul Critically high 0.00-0.03 [facility] Comment on above: Performed By: #### L ACT #### [facility] [address] [place] [address] Dr. Jeffrey Thomas IG % 0.6 % Critically high 0.0-0.5 [facility] Comment on above: Performed By: #### L ACT #### [facility] [address] [place] [address] Dr. Jeffrey Thomas LYMPH # 2.0 103/ul Normal 1.2-3.8 [facility] Comment on above: Performed By: #### L ACT #### [facility] [address] [place] [address] Dr. Jeffrey Thomas Lymphocytes/100 WBC (Bld) 28.8 % Normal 20.5-60.0 [facility] Comment on above: Performed By: #### L ACT #### [facility] [address] [place] [address] Dr. Jeffrey Thomas MANUAL DIFF REQ NO Normal [facility] Comment on above: Performed By: #### L ACT #### [facility] [address] [place] [address] Dr. Jeffrey Thomas MCH (RBC) [Entitic mass] 31.6 pg Normal 26.7-34.0 [facility] Comment on above: Performed By: #### L ACT #### [facility] [address] [place] [address] Dr. Jeffrey Thomas MCHC (RBC) [Mass/Vol] 32.2 g/dL Normal 29.9-35.2 [facility] Comment on above: Performed By: #### L ACT #### [facility] [address] [place] [address] Dr. Jeffrey Thomas MCV (RBC) [Entitic vol] 98.1 fL Normal 81.0-99.0 [facility] Comment on above: Performed By: #### L ACT #### [facility] [address] [place] [address] Dr. Jeffrey Thomas MONO # 0.6 103/ul Normal 0.3-0.8 [facility] Comment on above: Performed By: #### L ACT #### [facility] [address] [place] [address] Dr. Jeffrey Thomas Monocytes/100 WBC (Bld) 8.5 % Normal 1.7-12.0 [facility] Comment on above: Performed By: #### L ACT #### [facility] [address] [place] [address] Dr. Jeffrey Thomas NEUT # 3.9 103/ul Normal 1.4-6.5 [facility] Comment on above: Performed By: #### L ACT #### [facility] [address] [place] [address] Dr. Jeffrey Thomas Neutrophils/100 WBC (Bld) 57.0 % Normal 43.0-75.0 [facility] Comment on above: Performed By: #### L ACT #### [facility] [address] [place] [address] Dr. Jeffrey Thomas Platelet mean volume (Bld) [Entitic vol] 11.5 fL Normal 9.5-13.5 [facility] Comment on above: Performed By: #### L ACT #### [facility] [address] [place] [address] Dr. Jeffrey Thomas PLT 199 103/ul Normal 150-450 [facility] Comment on above: Performed By: #### L ACT #### [facility] [address] [address] [address] Jeffrey Thomas RBC 3.64 106/ul Critically low 4.20-5.40 [facility] Comment on above: Performed By: #### L ACT #### [facility] [address] [address] [address] Jeffrey Thomas WBC 6.9 103/ul Normal 4.0-11.0 [facility] Comment on above: Performed By: #### L ACT #### [facility] [address] [address] [address] Jeffrey Thomas POINT OF CARE GLUCOSEon 12-01 Glucose [Mass/Vol] 85 mg/dL Normal 74-106 [facility] Comment on above: Performed By: #### C MP #### [facility] [address] [place] [address] Dr. Jeffrey Thomas PROF 14(COMP METB)on 022 Albumin [Mass/Vol] 2.7 g/dL Critically low 3.4-5.0 [facility] Comment on above: Performed By: #### A MM #### [facility] [address] [place] [address] Dr. Jeffrey Thomas Albumin/Globulin [Mass ratio] 1.0 {ratio} Normal [facility] Comment on above: Performed By: #### A MM #### [facility] [address] [place] [address] Dr. Jeffrey Thomas ALP [Catalytic activity/Vol] 95 U/L Normal 46-116 [facility] Comment on above: Performed By: #### A MM #### [facility] [address] [place] [address] Dr. Jeffrey Thomas ALT [Catalytic activity/Vol] 11 U/L Critically low 14-59 [facility] Comment on above: Performed By: #### A MM #### [facility] [address] [place] [address] Dr. Jeffrey Thomas Anion gap [Moles/Vol] 10.8 mmol/L Normal [facility] Comment on above: Performed By: #### A MM #### [facility] [address] [address] [address] Jeffrey Thomas AST [Catalytic activity/Vol] 14 U/L Critically low 15-37 [facility] Comment on above: Performed By: #### A MM #### [facility] [address] [address] [address] Jeffrey Thomas Bilirubin [Mass/Vol] 0.2 mg/dL Normal 0.2-1.0 [facility] Comment on above: Performed By: #### A MM #### [facility] [address] [address] [address] Jeffrey Thomas Calcium [Mass/Vol] 8.3 mg/dL Critically low 8.5-10.1 [facility] Comment on above: Performed By: #### A MM #### [facility] [address] [address] [address] Jeffrey Thomas Chloride [Moles/Vol] 113 mmol/L Critically high 98-107 [facility] Comment on above: Performed By: #### A MM #### [facility] [address] [place] [address] Dr. Jeffrey Thomas CO2 [Moles/Vol] 22.1 mmol/L Normal 21.0-32.0 [facility] Comment on above: Performed By: #### A MM #### [facility] [address] [address] [address] Jeffrey Thomas Creatinine [Mass/Vol] 0.98 mg/dL Normal 0.55-1.02 [facility] Comment on above: Performed By: #### A MM #### [facility] [address] [address] [address] Jeffrey Thomas EGFR-AF VINCENTIAN >60 Normal >=60 [facility] Comment on above: Performed By: #### A MM #### [facility] [address] [place] [address] Dr. Jeffrey Thomas EGFR-NON AF VINCENTIAN 57 mL/min/1.73m2 Critically low >=60 [facility] Comment on above: Performed By: #### A MM #### [facility] [address] [address] [address] Jeffrey Thomas Globulin (S) [Mass/Vol] 2.6 g/dL Normal [facility] Comment on above: Performed By: #### A MM #### [facility] [address] [address] [address] Jeffrey Thomas Glucose [Mass/Vol] 102 mg/dL Normal 74-106 [facility] Comment on above: Performed By: #### A MM #### [facility] [address] [address] [address] Jeffrey Thomas Potassium [Moles/Vol] 3.9 mmol/L Normal 3.5-5.1 [facility] Comment on above: Performed By: #### A MM #### [facility] [address] [place] [address] Dr. Jeffrey Thomas Protein [Mass/Vol] 5.3 g/dL Critically low 6.4-8.2 [facility] Comment on above: Performed By: #### A MM #### [facility] [address] [address] [address] Jeffrey Thomas Sodium [Moles/Vol] 142 mmol/L Normal 136-145 [facility] Comment on above: Performed By: #### A MM #### [facility] [address] [place] [address] Dr. Jeffrey Thomas Urea nitrogen [Mass/Vol] 26.0 mg/dL Critically high 7.0-18.0 [facility] Comment on above: Performed By: #### A MM #### [facility] [address] [address] [address] Jeffrey Thomas Urea nitrogen/Creatinine [Mass ratio] 26.5 mg/mg Normal [facility] Comment on above: Performed By: #### A MM #### [facility] [address] [address] [address] Jeffrey Thomas T3, TOTAL (TRIIODOTHYRONINE) on 12-13-2021 T3, TOTAL 72 ng/dL Normal 71-180 [facility] Comment on above: Performed By: #### C MP #### [facility] [address] [place] [address] Dr. Jeffrey Thomas T4 LABCORPon 12-13-2021 T4 [Mass/Vol] 5.2 ug/dL Normal 4.5-12.0 [facility] Comment on above: Performed By: #### T 4LC #### [facility] [address] [place] [address] Dr. Jeffrey Thomas AMMONIAon 12-12-2021 Ammonia (P) [Moles/Vol] 10 umol/L Critically low 11-32 [facility] Comment on above: Performed By: #### A MM #### [facility] [address] [place] [address] Dr. Jeffrey Thomas CBC AUTO DIFFon 12-12-2021 BASO # 0.1 103/ul Normal 0.0-0.1 [facility] Comment on above: Performed By: #### T 4LC #### [facility] [address] [place] [address] Dr. Jeffrey Thomas Basophils/100 WBC (Bld) 1.4 % Normal 0.2-2.0 [facility] Comment on above: Performed By: #### T 4LC #### [facility] [address] [place] [address] Dr. Jeffrey Thomas EO # 0.2 103/ul Normal 0.0-0.7 [facility] Comment on above: Performed By: #### T 4LC #### [facility] [address] [place] [address] Dr. Jeffrey Thomas Eosinophils/100 WBC (Bld) 2.6 % Normal 0.9-7.0 [facility] Comment on above: Performed By: #### T 4LC #### [facility] [address] [place] [address] Dr. Jeffrey Thomas Erythrocyte distribution width (RBC) [Ratio] 15.7 % Critically high 11.0-15.0 [facility] Comment on above: Performed By: #### T 4LC #### [facility] [address] [place] [address] Dr. Jeffrey Thomas Hematocrit (Bld) [Volume fraction] 38.4 % Normal 36.0-48.0 [facility] Comment on above: Performed By: #### T 4LC #### [facility] [address] [place] [address] Dr. Jeffrey Thomas Hemoglobin (Bld) [Mass/Vol] 12.2 g/dL Normal 12.0-16.0 [facility] Comment on above: Performed By: #### T 4LC #### [facility] [address] [place] [address] Dr. Jeffrey Thomas IG # 0.04 10e3/ul Critically high 0.00-0.03 [facility] Comment on above: Performed By: #### T 4LC #### [facility] [address] [place] [address] Dr. Jeffrey Thomas IG % 0.5 % Normal 0.0-0.5 [facility] Comment on above: Performed By: #### T 4LC #### [facility] [address] [place] [address] Dr. Jeffrey Thomas LYMPH # 2.2 103/ul Normal 1.2-3.8 [facility] Comment on above: Performed By: #### T 4LC #### [facility] [address] [place] [address] Dr. Jeffrey Thomas Lymphocytes/100 WBC (Bld) 28.0 % Normal 20.5-60.0 [facility] Comment on above: Performed By: #### T 4LC #### [facility] [address] [place] [address] Dr. Jeffrey Thomas MANUAL DIFF REQ NO Normal [facility] Comment on above: Performed By: #### T 4LC #### [facility] [address] [place] [address] Dr. Jeffrey Thomas MCH (RBC) [Entitic mass] 30.9 pg Normal 26.7-34.0 [facility] Comment on above: Performed By: #### T 4LC #### [facility] [address] [place] [address] Dr. Jeffrey Thomas MCHC (RBC) [Mass/Vol] 31.8 g/dL Normal 29.9-35.2 [facility] Comment on above: Performed By: #### T 4LC #### [facility] [address] [place] [address] Dr. Jeffrey Thomas MCV (RBC) [Entitic vol] 97.2 fL Normal 81.0-99.0 [facility] Comment on above: Performed By: #### T 4LC #### [facility] [address] [place] [address] Dr. Jeffrey Thomas MONO # 0.6 103/ul Normal 0.3-0.8 [facility] Comment on above: Performed By: #### T 4LC #### [facility] [address] [place] [address] Dr. Jeffrey Thomas Monocytes/100 WBC (Bld) 7.9 % Normal 1.7-12.0 [facility] Comment on above: Performed By: #### T 4LC #### [facility] [address] [place] [address] Dr. Jeffrey Thomas NEUT # 4.7 103/ul Normal 1.4-6.5 [facility] Comment on above: Performed By: #### T 4LC #### [facility] [address] [place] [address] Dr. Jeffrey Thomas Neutrophils/100 WBC (Bld) 59.6 % Normal 43.0-75.0 [facility] Comment on above: Performed By: #### T 4LC #### [facility] [address] [place] [address] Dr. Jeffrey Thomas Platelet mean volume (Bld) [Entitic vol] 11.7 fL Normal 9.5-13.5 [facility] Comment on above: Performed By: #### T 4LC #### [facility] [address] [place] [address] Dr. Jeffrey Thomas PLT 256 103/ul Normal 150-450 [facility] Comment on above: Performed By: #### T 4LC #### [facility] [address] [place] [address] Dr. Jeffrey Thomas RBC 3.95 106/ul Critically low 4.20-5.40 [facility] Comment on above: Performed By: #### T 4LC #### [facility] [address] [place] [address] Dr. Jeffrey Thomas WBC 7.9 103/ul Normal 4.0-11.0 [facility] Comment on above: Performed By: #### T 4LC #### [facility] [address] [place] [address] Dr. Jeffrey Thomas BASO # 0.1 103/ul Normal 0.0-0.1 [facility] Comment on above: Performed By: #### C MP #### [facility] [address] [place] [address] Dr. Jeffrey Thomas Basophils/100 WBC (Bld) 1.4 % Normal 0.2-2.0 [facility] Comment on above: Performed By: #### C MP #### [facility] [address] [place] [address] Dr. Jeffrey Thomas EO # 0.2 103/ul Normal 0.0-0.7 [facility] Comment on above: Performed By: #### C MP #### [facility] [address] [place] [address] Dr. Jeffrey Thomas Eosinophils/100 WBC (Bld) 2.9 % Normal 0.9-7.0 [facility] Comment on above: Performed By: #### C MP #### [facility] [address] [place] [address] Dr. Jeffrey Thomas Erythrocyte distribution width (RBC) [Ratio] 15.7 % Critically high 11.0-15.0 [facility] Comment on above: Performed By: #### C MP #### [facility] [address] [place] [address] Dr. Jeffrey Thomas Hematocrit (Bld) [Volume fraction] 40.7 % Normal 36.0-48.0 [facility] Comment on above: Performed By: #### C MP #### [facility] [address] [place] [address] Dr. Jeffrey Thomas Hemoglobin (Bld) [Mass/Vol] 12.9 g/dL Normal 12.0-16.0 [facility] Comment on above: Performed By: #### C MP #### [facility] [address] [place] [address] Dr. Jeffrey Thomas IG # 0.02 10e3/ul Normal 0.00-0.03 [facility] Comment on above: Performed By: #### C MP #### [facility] [address] [place] [address] Dr. Jeffrey Thomas IG % 0.3 % Normal 0.0-0.5 [facility] Comment on above: Performed By: #### C MP #### [facility] [address] [place] [address] Dr. Jeffrey Thomas LYMPH # 1.7 103/ul Normal 1.2-3.8 [facility] Comment on above: Performed By: #### C MP #### [facility] [address] [place] [address] Dr. Jeffrey Thomas Lymphocytes/100 WBC (Bld) 28.4 % Normal 20.5-60.0 [facility] Comment on above: Performed By: #### C MP #### [facility] [address] [place] [address] Dr. Jeffrey Thomas MANUAL DIFF REQ NO Normal [facility] Comment on above: Performed By: #### C MP #### [facility] [address] [place] [address] Dr. Jeffrey Thomas MCH (RBC) [Entitic mass] 30.7 pg Normal 26.7-34.0 [facility] Comment on above: Performed By: #### C MP #### [facility] [address] [place] [address] Dr. Jeffrey Thomas MCHC (RBC) [Mass/Vol] 31.7 g/dL Normal 29.9-35.2 [facility] Comment on above: Performed By: #### C MP #### [facility] [address] [place] [address] Dr. Jeffrey Thomas MCV (RBC) [Entitic vol] 96.9 fL Normal 81.0-99.0 [facility] Comment on above: Performed By: #### C MP #### [facility] [address] [place] [address] Dr. Jeffrey Thomas MONO # 0.5 103/ul Normal 0.3-0.8 [facility] Comment on above: Performed By: #### C MP #### [facility] [address] [place] [address] Dr. Jeffrey Thomas Monocytes/100 WBC (Bld) 8.3 % Normal 1.7-12.0 [facility] Comment on above: Performed By: #### C MP #### [facility] [address] [place] [address] Dr. Jeffrey Thomas NEUT # 3.5 103/ul Normal 1.4-6.5 [facility] Comment on above: Performed By: #### C MP #### [facility] [address] [place] [address] Dr. Jeffrey Thomas Neutrophils/100 WBC (Bld) 58.7 % Normal 43.0-75.0 [facility] Comment on above: Performed By: #### C MP #### [facility] [address] [place] [address] Dr. Jeffrey Thomas Platelet mean volume (Bld) [Entitic vol] 11.5 fL Normal 9.5-13.5 [facility] Comment on above: Performed By: #### C MP #### [facility] [address] [place] [address] Dr. Jeffrey Thomas PLT 241 103/ul Normal 150-450 [facility] Comment on above: Performed By: #### C MP #### [facility] [address] [place] [address] Dr. Jeffrey Thomas RBC 4.20 106/ul Normal 4.20-5.40 [facility] Comment on above: Performed By: #### C MP #### [facility] [address] [place] [address] Dr. Jeffrey Thomas WBC 5.9 103/ul Normal 4.0-11.0 [facility] Comment on above: Performed By: #### C MP #### [facility] [address] [address] [address] Jeffrey Thomas BASO # 0.1 103/ul Normal 0.0-0.1 [facility] Comment on above: Performed By: #### A MM #### [facility] [address] [address] [address] Jeffrey Thomas Basophils/100 WBC (Bld) 1.7 % Normal 0.2-2.0 [facility] Comment on above: Performed By: #### A MM #### [facility] [address] [address] [address] Jeffrey Thomas EO # 0.1 103/ul Normal 0.0-0.7 [facility] Comment on above: Performed By: #### A MM #### [facility] [address] [place] [address] Dr. Jeffrey Thomas Eosinophils/100 WBC (Bld) 1.7 % Normal 0.9-7.0 [facility] Comment on above: Performed By: #### A MM #### [facility] [address] [place] [address] Dr. Jeffrey Thomas Erythrocyte distribution width (RBC) [Ratio] 15.6 % Critically high 11.0-15.0 [facility] Comment on above: Performed By: #### A MM #### [facility] [address] [place] [address] Dr. Jeffrey Thomas Hematocrit (Bld) [Volume fraction] 43.4 % Normal 36.0-48.0 [facility] Comment on above: Performed By: #### A MM #### [facility] [address] [place] [address] Dr. Jeffrey Thomas Hemoglobin (Bld) [Mass/Vol] 14.2 g/dL Normal 12.0-16.0 [facility] Comment on above: Performed By: #### A MM #### [facility] [address] [place] [address] Dr. Jeffrey Thomas IG # 0.04 10e3/ul Critically high 0.00-0.03 [facility] Comment on above: Performed By: #### A MM #### [facility] [address] [place] [address] Dr. Jeffrey Thomas IG % 0.6 % Critically high 0.0-0.5 [facility] Comment on above: Performed By: #### A MM #### [facility] [address] [place] [address] Dr. Jeffrey Thomas LYMPH # 2.2 103/ul Normal 1.2-3.8 [facility] Comment on above: Performed By: #### A MM #### [facility] [address] [place] [address] Dr. Jeffrey Thomas Lymphocytes/100 WBC (Bld) 32.7 % Normal 20.5-60.0 [facility] Comment on above: Performed By: #### A MM #### [facility] [address] [place] [address] Dr. Jeffrey Thomas MANUAL DIFF REQ NO Normal [facility] Comment on above: Performed By: #### A MM #### [facility] [address] [place] [address] Dr. Jeffrey Thomas MCH (RBC) [Entitic mass] 31.3 pg Normal 26.7-34.0 [facility] Comment on above: Performed By: #### A MM #### [facility] [address] [place] [address] Dr. Jeffrey Thomas MCHC (RBC) [Mass/Vol] 32.7 g/dL Normal 29.9-35.2 [facility] Comment on above: Performed By: #### A MM #### [facility] [address] [place] [address] Dr. Jeffrey Thomas MCV (RBC) [Entitic vol] 95.8 fL Normal 81.0-99.0 [facility] Comment on above: Performed By: #### A MM #### [facility] [address] [place] [address] Dr. Jeffrey Thomas MONO # 0.7 103/ul Normal 0.3-0.8 [facility] Comment on above: Performed By: #### A MM #### [facility] [address] [place] [address] Dr. Jeffrey Thomas Monocytes/100 WBC (Bld) 9.9 % Normal 1.7-12.0 [facility] Comment on above: Performed By: #### A MM #### [facility] [facility] [address] [place] [address] Dr. Jeffrey Thomas NEUT # 3.5 103/ul Normal 1.4-6.5 [facility] Comment on above: Performed By: #### A MM #### [facility] [address] [place] [address] Dr. Jeffrey Thomas Neutrophils/100 WBC (Bld) 53.4 % Normal 43.0-75.0 [facility] Comment on above: Performed By: #### A MM #### [facility] [address] [place] [address] Dr. Jeffrey Thomas Platelet mean volume (Bld) [Entitic vol] 12.1 fL Normal 9.5-13.5 [facility] Comment on above: Performed By: #### A MM #### [facility] [address] [place] [address] Dr. Jeffrey Thomas PLT 307 103/ul Normal 150-450 [facility] Comment on above: Performed By: #### A MM #### [facility] [address] [place] [address] Dr. Jeffrey Thomas RBC 4.53 106/ul Normal 4.20-5.40 [facility] Comment on above: Performed By: #### A MM #### [facility] [address] [place] [address] Dr. Jeffrey Thomas WBC 6.6 103/ul Normal 4.0-11.0 [facility] Comment on above: Performed By: #### A MM #### [facility] [address] [place] [address] Dr. Jeffrey Thomas [facility]01 SARS-CoV-2 (COVID-19) RNA REBECCA+probe Ql (Unsp spec) Not detected Normal NOT DETECTED [facility] Comment on above: Result Comment: [...] for this test is supported by the Expanded Duty Dental Assistant of Health and Human Service's declaration that [...] used). Performed By: #### C VDTB #### [facility] [address] [place] [address] Dr. Jeffrey Thomas DRUG SCREEN RAPID (URINE)on 12-12-2021 AMP Negative Normal NEGATIVE [facility] Comment on above: Performed By: #### T 4LC #### [facility] [address] [place] [address] Dr. Jeffrey Thomas BAR Negative Normal NEGATIVE [facility] Comment on above: Performed By: #### T 4LC #### [facility] [address] [place] [address] Dr. Jeffrey Thomas BUP Negative Normal NEGATIVE [facility] Comment on above: Performed By: #### T 4LC #### [facility] [address] [place] [address] Dr. Jeffrey Thomas BZO Positive Abnormal NEGATIVE [facility] Comment on above: Performed By: #### T 4LC #### [facility] [address] [place] [address] Dr. Jeffrey Thomas VIKASH Negative Normal NEGATIVE [facility] Comment on above: Performed By: #### T 4LC #### [facility] [address] [place] [address] Dr. Jeffrey Thomas CUT-OFFS SEE BELOW Normal [facility] Comment on above: Result Comment: [...] ng/mL Performed By: #### T 4LC #### [facility] [address] [place] [address] Dr. Jeffrey Thomas DRUG CUT HEADER DRUG CLASS TEST SYSTEM CUT-OFF CONCENTRATIONS ARE FOLLOWS: Normal [facility] Comment on above: Performed By: #### T 4LC #### [facility] [address] [place] [address] Dr. Jeffrey Thomas mAMP Negative Normal NEGATIVE [facility] Comment on above: Performed By: #### T 4LC #### [facility] [address] [place] [address] Dr. Jeffrey Thomas MTD Negative Normal NEGATIVE [facility] Comment on above: Performed By: #### T 4LC #### [facility] [address] [place] [address] Dr. Jeffrey Thomas OPI Negative Normal NEGATIVE [facility] Comment on above: Performed By: #### T 4LC #### [facility] [address] [place] [address] Dr. Jeffrey Thomas OXY Negative Normal NEGATIVE [facility] Comment on above: Performed By: #### T 4LC #### [facility] [address] [place] [address] Dr. Jeffrey Thomas PCP Negative Normal NEGATIVE [facility] Comment on above: Performed By: #### T 4LC #### [facility] [address] [place] [address] Dr. Jeffrey Thomas PPX Negative Normal NEGATIVE [facility] Comment on above: Performed By: #### T 4LC #### [facility] [address] [place] [address] Dr. Jeffrey Thomas TCA Positive Abnormal NEGATIVE [facility] Comment on above: Performed By: #### T 4LC #### [facility] [address] [place] [address] Dr. Jeffrey Thomas THC Negative Normal NEGATIVE [facility] Comment on above: Performed By: #### T 4LC #### [facility] [address] [place] [address] Dr. Jeffrey Thomas AMP Negative Normal NEGATIVE [facility] Comment on above: Performed By: #### C MP #### [facility] [address] [place] [address] Dr. Jeffrey Thomas BAR Negative Normal NEGATIVE [facility] Comment on above: Performed By: #### C MP #### [facility] [address] [place] [address] Dr. Jeffrey Thomas BUP Negative Normal NEGATIVE [facility] Comment on above: Performed By: #### C MP #### [facility] [address] [place] [address] Dr. Jeffrey Thomas BZO Positive Abnormal NEGATIVE [facility] Comment on above: Performed By: #### C MP #### [facility] [address] [place] [address] Dr. Jeffrey Thomas VIKASH Negative Normal NEGATIVE [facility] Comment on above: Performed By: #### C MP #### [facility] [address] [place] [address] Dr. Jeffrey Thomas CUT-OFFS SEE BELOW Normal [facility] Comment on above: Result Comment: AMP [...] ng/mL Performed By: #### C MP #### [facility] [address] [place] [address] Dr. Jeffrey Thomas DRUG CUT HEADER DRUG CLASS TEST SYSTEM CUT-OFF CONCENTRATIONS ARE FOLLOWS: Normal [facility] Comment on above: Performed By: #### C MP #### [facility] [address] [place] [address] Dr. Jeffrey Thomas mAMP Negative Normal NEGATIVE [facility] Comment on above: Performed By: #### C MP #### [facility] [address] [place] [address] Dr. Jeffrey Thomas MTD Negative Normal NEGATIVE [facility] Comment on above: Performed By: #### C MP #### [facility] [address] [place] [address] Dr. Jfefrey Thomas OPI Negative Normal NEGATIVE [facility] Comment on above: Performed By: #### C MP #### [facility] [address] [place] [address] Dr. Jeffrey Thomas OXY Negative Normal NEGATIVE [facility] Comment on above: Performed By: #### C MP #### [facility] [address] [place] [address] Dr. Jeffrey Thomas PCP Negative Normal NEGATIVE [facility] Comment on above: Performed By: #### C MP #### [facility] [address] [place] [address] Dr. Jeffrey Thomas PPX Negative Normal NEGATIVE [facility] Comment on above: Performed By: #### C MP #### [facility] [address] [place] [address] Dr. Jeffrey Thomas TCA Positive Abnormal NEGATIVE [facility] Comment on above: Performed By: #### C MP #### [facility] [address] [place] [address] Dr. Jeffrey Thomas THC Negative Normal NEGATIVE [facility] Comment on above: Performed By: #### C MP #### [facility] [address] [place] [address] Dr. Jeffrey Thomas ER URINE PROFILEon 2 Bilirubin Ql (U) SMALL Abnormal NEGATIVE [facility] Comment on above: Performed By: #### C MP #### [facility] [address] [place] [address] Dr. Jeffrey Thomas Clarity (U) CLEAR Normal CLEAR [facility] Comment on above: Performed By: #### C MP #### [facility] [address] [place] [address] Dr. Jeffrey Thomas Color (U) YELLOW Normal YELLOW [facility] Comment on above: Performed By: #### C MP #### [facility] [address] [place] [address] Dr. Jeffrey HOFFMAN A micrscopic examination will be performed if indicated. Normal [facility] Comment on above: Performed By: #### C MP #### [facility] [address] [place] [address] Dr. Jeffrey Thomas Glucose Ql (U) Negative Normal NEGATIVE [facility] Comment on above: Performed By: #### C MP #### [facility] [address] [place] [address] Dr. Jeffrey Thomas Hemoglobin Ql (U) Negative Normal NEGATIVE [facility] Comment on above: Performed By: #### C MP #### [facility] [address] [place] [address] Dr. Jeffrey Thomas Ketones Ql (U) Negative Normal NEGATIVE [facility] Comment on above: Performed By: #### C MP #### [facility] [address] [place] [address] Dr. Jeffrey Thomas LEUKOCYTES Negative Normal NEGATIVE [facility] Comment on above: Performed By: #### C MP #### [facility] [address] [place] [address] Dr. Jeffrey Thomas Nitrite Ql (U) Negative Normal NEGATIVE [facility] Comment on above: Performed By: #### C MP #### [facility] [address] [place] [address] Dr. Jeffrey Thomas pH (U) 5.0 [pH] Normal 5-9 [facility] Comment on above: Performed By: #### C MP #### [facility] [address] [place] [address] Dr. Jeffrey Thomas SPEC GRAVITY 1.025 Normal 1.005-<=1.02 5 [facility] Comment on above: Performed By: #### C MP #### [facility] [address] [place] [address] Dr. Jeffrey Thomas UA PROTEIN Negative Normal NEGATIVE/ TRACE [facility] Comment on above: Performed By: #### C MP #### [facility] [address] [address] [address] Jeffrey Thomas UR MICRO IND NOT INDICATED Normal [facility] Comment on above: Performed By: #### C MP #### [facility] [address] [place] [address] Dr. Jeffrey Thomas Urobilinogen Qn (U) 0.2 {Bere'U}/dL Normal 0.2 - 1. 0 [facility] Comment on above: Performed By: #### C MP #### [facility] [address] [place] [address] Dr. Jeffrey Thomas PROF 14(COMP METB)on 022 Albumin [Mass/Vol] 2.9 g/dL Critically low 3.4-5.0 [facility] Comment on above: Performed By: #### C MP #### [facility] [address] [place] [address] Dr. Jeffrey Thomas Albumin/Globulin [Mass ratio] 1.0 {ratio} Normal [facility] Comment on above: Performed By: #### C MP #### [facility] [address] [place] [address] Dr. Jeffrey Thomas ALP [Catalytic activity/Vol] 116 U/L Normal 46-116 [facility] Comment on above: Performed By: #### C MP #### [facility] [address] [place] [address] Dr. Jeffrey Thomas ALT [Catalytic activity/Vol] 12 U/L Critically low 14-59 [facility] Comment on above: Performed By: #### C MP #### [facility] [address] [place] [address] Dr. Jeffrey Thomas Anion gap [Moles/Vol] 11.8 mmol/L Normal [facility] Comment on above: Performed By: #### C MP #### [facility] [address] [address] [address] Jeffrey Thomas AST [Catalytic activity/Vol] 12 U/L Critically low 15-37 [facility] Comment on above: Performed By: #### C MP #### [facility] [address] [address] [address] Jeffrey Thomas Bilirubin [Mass/Vol] 0.1 mg/dL Critically low 0.2-1.0 [facility] Comment on above: Performed By: #### C MP #### [facility] [address] [place] [address] Dr. Jeffrey Thomas Calcium [Mass/Vol] 8.2 mg/dL Critically low 8.5-10.1 [facility] Comment on above: Performed By: #### C MP #### [facility] [address] [address] [address] Jeffrey Thomas Chloride [Moles/Vol] 111 mmol/L Critically high 98-107 [facility] Comment on above: Performed By: #### C MP #### [facility] [address] [place] [address] Dr. Jeffrey Thomas CO2 [Moles/Vol] 20.2 mmol/L Critically low 21.0-32.0 [facility] Comment on above: Performed By: #### C MP #### [facility] [address] [address] [address] Jeffrey Thomas Creatinine [Mass/Vol] 1.26 mg/dL Critically high 0.55-1.02 [facility] Comment on above: Performed By: #### C MP #### [facility] [address] [place] [address] Dr. Jeffrey Thomas EGFR-AF VINCENTIAN 52 mL/min/1.73m2 Critically low >=60 [facility] Comment on above: Performed By: #### C MP #### [facility] [address] [place] [address] Dr. Jeffrey Thomas EGFR-NON AF VINCENTIAN 43 mL/min/1.73m2 Critically low >=60 [facility] Comment on above: Performed By: #### C MP #### [facility] [address] [address] [address] Jeffrey Thomas Globulin (S) [Mass/Vol] 3.0 g/dL Normal [facility] Comment on above: Performed By: #### C MP #### [facility] [address] [address] [address] Jeffrey Thomas Glucose [Mass/Vol] 131 mg/dL Critically high 74-106 T [facility] Comment on above: Performed By: #### C MP #### [facility] [address] [address] [address] Jeffrey Thomas Potassium [Moles/Vol] 4.0 mmol/L Normal 3.5-5.1 [facility] Comment on above: Performed By: #### C MP #### [facility] [address] [address] [address] Jeffrey Thomas Protein [Mass/Vol] 5.9 g/dL Critically low 6.4-8.2 Th [facility] Comment on above: Performed By: #### C MP #### [facility] [address] [address] [address] Jeffrey Thomas Sodium [Moles/Vol] 139 mmol/L Normal 136-145 [facility] Comment on above: Performed By: #### C MP #### [facility] [address] [address] [address] Jeffrey Thomas Urea nitrogen [Mass/Vol] 30.0 mg/dL Critically high 7.0-18.0 [facility] Comment on above: Performed By: #### C MP #### [facility] [address] [address] [address] Jeffrey Thomas Urea nitrogen/Creatinine [Mass ratio] 23.8 mg/mg Normal [facility] Comment on above: Performed By: #### C MP #### [facility] [address] [address] [address] Jeffrey Thomas Albumin [Mass/Vol] 3.1 g/dL Critically low 3.4-5.0 [facility] Comment on above: Performed By: #### C MP #### [facility] [address] [place] [address] Dr. Jeffrey Thomas Albumin/Globulin [Mass ratio] 1.0 {ratio} Normal [facility] Comment on above: Performed By: #### C MP #### [facility] [address] [address] [address] Jeffrey Thomas ALP [Catalytic activity/Vol] 119 U/L Critically high 46-116 [facility] Comment on above: Performed By: #### C MP #### [facility] [address] [address] [address] Jeffrey Thomas ALT [Catalytic activity/Vol] 13 U/L Critically low 14-59 [facility] Comment on above: Performed By: #### C MP #### [facility] [address] [place] [address] Dr. Jeffrey Thomas Anion gap [Moles/Vol] 11.9 mmol/L Normal [facility] Comment on above: Performed By: #### C MP #### [facility] [address] [place] [address] Dr. Jeffrey Thomas AST [Catalytic activity/Vol] 15 U/L Normal 15-37 [facility] Comment on above: Performed By: #### C MP #### [facility] [address] [place] [address] Dr. Jeffrey Thomas Bilirubin [Mass/Vol] 0.3 mg/dL Normal 0.2-1.0 [facility] Comment on above: Performed By: #### C MP #### [facility] [address] [place] [address] Dr. Jeffrey Thomas Calcium [Mass/Vol] 8.5 mg/dL Normal 8.5-10.1 [facility] Comment on above: Performed By: #### C MP #### [facility] [address] [place] [address] Dr. Jeffrey Thomas Chloride [Moles/Vol] 109 mmol/L Critically high 98-107 [facility] Comment on above: Performed By: #### C MP #### [facility] [address] [address] [address] Jeffrey Thomas CO2 [Moles/Vol] 21.9 mmol/L Normal 21.0-32.0 [facility] Comment on above: Performed By: #### C MP #### [facility] [address] [address] [address] Jeffrey Thomas Creatinine [Mass/Vol] 1.18 mg/dL Critically high 0.55-1.02 [facility] Comment on above: Performed By: #### C MP #### [facility] [address] [address] [address] Jeffrey Thomas EGFR-AF VINCENTIAN 56 mL/min/1.73m2 Critically low >=60 [facility] Comment on above: Performed By: #### C MP #### [facility] [address] [address] [address] Jeffrey Thomas EGFR-NON AF VINCENTIAN 46 mL/min/1.73m2 Critically low >=60 [facility] Comment on above: Performed By: #### C MP #### [facility] [address] [address] [address] Jeffrey Thomas Globulin (S) [Mass/Vol] 3.1 g/dL Normal [facility] Comment on above: Performed By: #### C MP #### [facility] [address] [address] [address] Jeffrey Thomas Glucose [Mass/Vol] 94 mg/dL Normal 74-106 [facility] Comment on above: Performed By: #### C MP #### [facility] [address] [address] [address] Jeffrey Thomas Potassium [Moles/Vol] 3.8 mmol/L Normal 3.5-5.1 [facility] Comment on above: Performed By: #### C MP #### [facility] [address] [address] [address] Jeffrey Thomas Protein [Mass/Vol] 6.2 g/dL Critically low 6.4-8.2 Th [facility] Comment on above: Performed By: #### C MP #### [facility] [address] [address] [address] Jeffrey Thomas Sodium [Moles/Vol] 139 mmol/L Normal 136-145 [facility] Comment on above: Performed By: #### C MP #### [facility] [address] [address] [address] Jeffrey Thomas Urea nitrogen [Mass/Vol] 27.0 mg/dL Critically high 7.0-18.0 [facility] Comment on above: Performed By: #### C MP #### [facility] [address] [address] [address] Jeffrey Thomas Urea nitrogen/Creatinine [Mass ratio] 22.9 mg/mg Normal [facility] Comment on above: Performed By: #### C MP #### [facility] [address] [place] [address] Dr. Jeffrey Thomas Albumin [Mass/Vol] 3.3 g/dL Critically low 3.4-5.0 [facility] Comment on above: Performed By: #### A MM #### [facility] [address] [place] [address] Dr. Jeffrey Thomas Albumin/Globulin [Mass ratio] 1.0 {ratio} Normal [facility] Comment on above: Performed By: #### A MM #### [facility] [address] [place] [address] Dr. Jeffrey Thomas ALP [Catalytic activity/Vol] 127 U/L Critically high 46-116 [facility] Comment on above: Performed By: #### A MM #### [facility] [address] [place] [address] Dr. Jeffrey Thomas ALT [Catalytic activity/Vol] 10 U/L Critically low 14-59 [facility] Comment on above: Performed By: #### A MM #### [facility] [address] [place] [address] Dr. Jeffrey Thomas Anion gap [Moles/Vol] 12.9 mmol/L Normal [facility] Comment on above: Performed By: #### A MM #### [facility] [address] [address] [address] Jeffrey Thomas AST [Catalytic activity/Vol] 20 U/L Normal 15-37 [facility] Comment on above: Performed By: #### A MM #### [facility] [address] [address] [address] Jeffrey Thomas Bilirubin [Mass/Vol] 0.3 mg/dL Normal 0.2-1.0 [facility] Comment on above: Performed By: #### A MM #### [facility] [address] [place] [address] Dr. Jeffrey Thomas Calcium [Mass/Vol] 8.9 mg/dL Normal 8.5-10.1 [facility] Comment on above: Performed By: #### A MM #### [facility] [address] [place] [address] Dr. Jeffrey Thomas Chloride [Moles/Vol] 106 mmol/L Normal 98-107 [facility] Comment on above: Performed By: #### A MM #### [facility] [address] [place] [address] Dr. Jeffrey Thomas CO2 [Moles/Vol] 21.8 mmol/L Normal 21.0-32.0 [facility] Comment on above: Performed By: #### A MM #### [facility] [address] [place] [address] Dr. Jeffrey Thomas Creatinine [Mass/Vol] 1.54 mg/dL Critically high 0.55-1.02 [facility] Comment on above: Performed By: #### A MM #### [facility] [address] [place] [address] Dr. Jeffrey Thomas EGFR-AF VINCENTIAN 41 mL/min/1.73m2 Critically low >=60 [facility] Comment on above: Performed By: #### A MM #### [facility] [address] [place] [address] Dr. Jeffrey Thomas EGFR-NON AF VINCENTIAN 34 mL/min/1.73m2 Critically low >=60 [facility] Comment on above: Performed By: #### A MM #### [facility] [address] [place] [address] Dr. Jeffrey Thomas Globulin (S) [Mass/Vol] 3.4 g/dL Normal [facility] Comment on above: Performed By: #### A MM #### [facility] [address] [address] [address] Jeffrey Thomas Glucose [Mass/Vol] 139 mg/dL Critically high 74-106 [facility] Comment on above: Performed By: #### A MM #### [facility] Laboratory [address] [address] [address] Jeffrey Thomas Potassium [Moles/Vol] 3.7 mmol/L Normal 3.5-5.1 [facility] Comment on above: Performed By: #### A MM #### [facility] [address] [place] [address] Dr. Jeffrey Thomas Protein [Mass/Vol] 6.7 g/dL Normal 6.4-8.2 [facility] Comment on above: Performed By: #### A MM #### [facility] [address] [address] [address] Jeffrey Thomas Sodium [Moles/Vol] 139 mmol/L Normal 136-145 [facility] Comment on above: Performed By: #### A MM #### [facility] [address] [address] [address] Jeffrey Thomas Urea nitrogen [Mass/Vol] 31.0 mg/dL Critically high 7.0-18.0 [facility] Comment on above: Performed By: #### A MM #### [facility] [address] [address] [address] Jeffrey Thomsa Urea nitrogen/Creatinine [Mass ratio] 20.1 mg/mg Normal [facility] Comment on above: Performed By: #### A MM #### [facility] [address] [place] [address] Dr. Jeffrey Thomas PROTIMEon 12-12-2021 INR Coag (PPP) [Relative time] 1.13 {INR} Normal [facility] Comment on above: Performed By: #### T 4LC #### [facility] [address] [place] [address] Dr. Jeffrey Thomas INR GUIDELINES SEE BELOW Normal [facility] Comment on above: Result Comment: MERARI RED INR: 2.0 - 3.0 CONDITIONS NOT LISTED BELOW 2.5 - 3.5 FOR PROSTHETIC HEART VALVE REPLACEMENT 2.5 - 3.5 RECURRENT THROMBOSIS Performed By: #### T 4LC #### [facility] [address] [address] [address] Jeffrey Thomas PT Coag (PPP) [Time] 12.1 s Critically high 9.0-11.6 [facility] Comment on above: Performed By: #### T 4LC #### [facility] [address] [address] [address] Jeffrey Thomas TSHon 12-12-2021 TSH 0.729 uIU/mL Normal 0.358-3.[address] [facility] Comment on above: Performed By: #### C MP #### [facility] [address] [address] [address] Jeffrey Thomas XR CHEST 1 Von [...] GUILLE RAY Date: 2021-12-11 23:48 Normal [facility] PT Coag (PPP) [Time]on 01-08 INR Coag (PPP) [Relative time] 1.5 {INR} <=5.0 [facility] Comment on above: The recommended ther apeutic INR range for most cardiac indications is 2.0-3.0 For high intensity therapy (i.e. mechanical heart valves), the recommended range is 2.5-3.5 Interpretation and review of laboratory results Abnormal [facility] PT Coag (Bld) [Time] 18.1 s High [facility] Basic metabolic 2000 panelon 01-07-2021 Calcium [Mass/Vol] 8.8 mg/dL Normal 8.5-10.6 [facility] Chloride [Moles/Vol] 107 mmol/L Normal 98-107 M[facility] CO2 [Moles/Vol] 25 mmol/L Normal 21-32 [facility] Creatinine [Mass/Vol] 1.87 mg/dL High 0.55-1.02 [facility] Glucose [Mass/Vol] 96 mg/dL Normal 70-99 [facility] Potassium [Moles/Vol] 4.5 mmol/L Normal 3.5-5.1 [facility] Sodium [Moles/Vol] 141 mmol/L Normal 136-145 [facility] Urea nitrogen (BldV) [Mass/Vol] 27 mg/dL High 7.0-18.0 [facility] Urea nitrogen/Creatinine [Mass ratio] 14 mg/mg Normal [facility] Coronavirus (COVID-19/SARS-C oV-2) RAPIDon 01-07-2021 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 N Normal [facility] First test N Normal [facility] ICU N Normal [facility] Illness or injury onset date and time Normal [facility] Patient was hospitalized because of this condition Y Normal [facility] status N Normal [facility] Resides in congregate care setting N Normal [facility] SARS-CoV-2 (COVID-19) RNA REBECCA+probe Ql (Resp) Not detected Normal NDET [facility] Comment on above: Result Comment: This test was performed via the [employer] NOW COVID 19 assay and has been authorized by FDA under an Emergency Use Authorization (EUA). The assay is validated for nasopharyngeal (C IRON WORKER), nasal, and oropharyngeal (OP) direct swabs. The [...] Symptomatic as defined by CDC N Normal [facility] Gentamicin Trough Levelon Gentamicin trough [Mass/Vol] 1.0 mg/L Normal [facility] Comment on above: Result Comment: Refe rence range: 0.0 to 2.0 Unit: UG/ML PT Coag (PPP) [Time]on 01-07 INR Coag (Bld) [Relative time] 1.3 {INR} Normal [facility] Comment on above: Order Comment: Preho [...] (PPP) [Time] 15.7 s High 11.9-14.6 [facility] Comment on above: Order Comment: Preho spitalization had reported chronic use of Coumadin which was held for surgery. Tobramycin random [Moles/Vol ]on 01-07-2021 Tobramycin [Mass/Vol] SEE SEPARATE REPORT Normal 0.5-1 .5 [facility] Comment on above: Result Comment: SEE NOTES REVIEW TAB FOR RESULTS Basic metabolic 2000 panelon 01-06-2021 Calcium [Mass/Vol] 8.6 mg/dL Normal 8.5-10.6 [facility] Chloride [Moles/Vol] 107 mmol/L Normal 98-107 [facility] CO2 [Moles/Vol] 24 mmol/L Normal 21-32 [facility] Creatinine [Mass/Vol] 1.82 mg/dL High 0.55-1.02 [facility] Glucose [Mass/Vol] 87 mg/dL Normal 70-99 [facility] Potassium [Moles/Vol] 4.8 mmol/L Normal 3.5-5.1 [facility] Sodium [Moles/Vol] 140 mmol/L Normal 136-145 [facility] Urea nitrogen (BldV) [Mass/Vol] 30 mg/dL High 7.0-18.0 [facility] Urea nitrogen/Creatinine [Mass ratio] 16 mg/mg Normal [facility] Hematocriton 01-06-2021 Hematocrit (Bld) [Volume fraction] 28.9 % Low 34.0-50.0 [facility] Hemoglobinon 01-06-2021 Hemoglobin (Bld) [Mass/Vol] 9.4 g/dL Low 11.5-17.0 [facility] Histopathology Requeston Relevant diagnostic tests/laboratory data Narrative SPECIMEN DESCRIPTION 1 LEFT KNEE TISSUE RESULT SEE SEPARATE REPORT RESULT SEE NOTES REVIEW TAB FOR RESULTS ROUTINE LAB Report Date: 01/06/2021 09:09:05 Collect Date: 01/03/2021 12:44:00 Normal [facility] PT Coag (PPP) [Time]on 01-06 INR Coag (Bld) [Relative time] 1.1 {INR} Normal [facility] Comment on above: Order Comment: Preho [...] Coag (PPP) [Time] 14.2 s Normal 11.9-14.[address] [facility] Comment on above: Order Comment: Preho spitalization had reported chronic use of Coumadin which was held for surgery. Basic metabolic 2000 panelon 01-05-2021 Calcium [Mass/Vol] 8.1 mg/dL Low 8.5-10.6 [facility] Chloride [Moles/Vol] 108 mmol/L High 98-107 [facility] CO2 [Moles/Vol] 27 mmol/L Normal 21-32 [facility] Creatinine [Mass/Vol] 2.05 mg/dL High 0.55-1.02 [facility] Glucose [Mass/Vol] 91 mg/dL Normal 70-99 [facility] Potassium [Moles/Vol] 4.7 mmol/L Normal 3.5-5.1 [facility] Sodium [Moles/Vol] 141 mmol/L Normal 136-145 [facility] Urea nitrogen (BldV) [Mass/Vol] 36 mg/dL High 7.0-18.0 [facility] Urea nitrogen/Creatinine [Mass ratio] 18 mg/mg Normal [facility] CBC W Auto Differential pane l (Bld)on 01-05-2021 Basophils (Bld) [#/Vol] 0.1 thou/mcL Normal 0.0-0.2 [facility] Basophils/100 WBC (Bld) 0.9 % Normal 0-3 [facility] Differential cell count method Nom (Bld) AUTOMATED DIFFERENTIAL Normal [facility] Eosinophils (Bld) [#/Vol] 0.2 thou/mcL Normal 0.0-0.4 [facility] Eosinophils/100 WBC (Bld) 2.2 % Normal 0-7 [facility] Erythrocyte distribution width (RBC) [Entitic vol] 16.0 % High 11.7-15.0 [facility] Hematocrit (Bld) [Volume fraction] 21.4 % Low 34.0-50.0 [facility] Hemoglobin (Bld) [Mass/Vol] 6.8 g/dL Off scale low 11.5-17.0 [facility] Comment on above: Result Comment: RESU LTS VERIFIED AND CALLED TO/READ BACK BY ALFONSO HILARIO 10.6.21 @5089.BA Lymphocytes (Bld) [#/Vol] 0.9 thou/mcL Normal 0.7-4.5 [facility] Lymphocytes/100 WBC (Bld) 12.7 % Low 14-46 [facility] MCH (RBC) [Entitic mass] 27.2 Picograms Normal 27.0-34.0 [facility] MCHC (RBC) [Mass/Vol] 31.8 g/dL Low 32.0-36.0 [facility] MCV (RBC) [Entitic vol] 85.5 fL Normal 80-98 [facility] Monocytes (Bld) [#/Vol] 0.6 thou/mcL Normal 0.1-1.0 [facility] Monocytes/100 WBC (Bld) 8.1 % Normal 4-13 [facility] Neutrophils (Bld) [#/Vol] 5.7 thou/mcL Normal 1.5-7.8 [facility] Neutrophils/100 WBC (Bld) 76.1 % High 40-74 [facility] Platelet mean volume (Bld) [Entitic vol] 10.5 fL Normal 7.5-11.2 [facility] Platelets (Bld) [#/Vol] 141 thou/mcL Normal 140-415 [facility] RBC (Bld) [#/Vol] 2.50 x(10)6/mcL Low 3.80-5.[address] [facility] WBC (Bld) [#/Vol] 7.5 thou/mcL Normal 4.0-10.5 [facility] Gentamicin Trough Levelon Gentamicin trough [Mass/Vol] 3.9 mg/L Critically high [facility] Comment on above: Result Comment: Refe rence range: 0.0 to 2.0 Unit: UG/ML (NOTE) Critical value(s) on tests gentt called to and read-back by clementine nuñez at location [facility] by time called _01/05/21 12:20 Hematocriton 01-05-2021 Hematocrit (Bld) [Volume fraction] 27.2 % Low 34.0-50.0 [facility] Hemoglobinon 01-05-2021 Hemoglobin (Bld) [Mass/Vol] 8.8 g/dL Low 11.5-17.0 [facility] PT Coag (PPP) [Time]on 01-05 INR Coag (Bld) [Relative time] 1.1 {INR} Normal [facility] Comment on above: Order Comment: Preho [...] Pathology studyon 01-05-2021 Case report TRINITY GODINEZ [id number] YRS F [id number] RM/BD [id number] 01 ORDERING PHYSICIAN: CALOS SMITH [...] cut surface is rogers-pink, soft and homogeneous. Chute Tender sections are submitted in block A1. (RS/1C/MS/RT) Gross examination was performed at [facility]. RODRIGOB:MEI 01/04/21 By: LICHA ZEPEDA M.D. (Electronic Signature) MICROSCOPIC: The technical component was performed at [facility], [address] [place] [address]. Microscopic examination was performed. Case resulted at [facility]. DIAGNOSIS: Left knee tissue, revision arthroplasty: -DENSE FIBROUS TISSUE WITH PATCHY CHRONIC INFLAMMATION, FOREIGN BODY GIANT CELL REACTION, AND OSSEOUS METAPLASIA. NOTE: Perivascular lymphocytic inflammation is mild and patchy. JH2:JH2:JH21 END OF REPORT [employer] Comment on above: END OF REPORT [employer] [employer] [facility] Prothrombin Timeon 1 PT Coag (PPP) [Time] 14.5 s Normal 11.9-14.[address] [facility] Comment on above: Order Comment: Preho spitalization had reported chronic use of Coumadin which was held for surgery. Rh Confirm Nom (Bld)on 01-05 ABO group Nom (Bld) A Normal [facility] Rh Nom (Bld) Positive Normal [facility] Tobramycin random [Moles/Vol ]on 01-05-2021 Tobramycin [Mass/Vol] SEE SEPARATE REPORT Normal 0.5-1 .5 [facility] Comment on above: Result Comment: SEE NOTES REVIEW TAB FOR RESULTS Vancomycin [Moles/Vol]on Vancomycin random [Mass/Vol] <3.5 Off scale low 10.0-50.0 [facility] Basic metabolic 2000 panelon 01-04-2021 Calcium [Mass/Vol] 8.5 mg/dL Normal 8.5-10.6 [facility] Chloride [Moles/Vol] 104 mmol/L Normal 98-107 Moun [facility] CO2 [Moles/Vol] 26 mmol/L Normal 21-32 [facility] Creatinine [Mass/Vol] 2.32 mg/dL High 0.55-1.02 [facility] Glucose [Mass/Vol] 90 mg/dL Normal 70-99 [facility] Potassium [Moles/Vol] 5.7 mmol/L Critically high 3.5-5.1 [facility] Comment on above: Result Comment: RESU LTS VERIFIED AND CALLED TO/READ BACK BY ABRAM MCQUEEN 10..21 @ 0640. Sodium [Moles/Vol] 138 mmol/L Normal 136-145 [facility] Urea nitrogen (BldV) [Mass/Vol] 45 mg/dL High 7.0-18.0 [facility] Urea nitrogen/Creatinine [Mass ratio] 19 mg/mg Normal [facility] CBC W Auto Differential pane l (Bld)on 01-04-2021 Basophils (Bld) [#/Vol] 0.0 thou/mcL Normal 0.0-0.2 [facility] Basophils/100 WBC (Bld) 0.3 % Normal 0-3 [facility] Differential cell count method Nom (Bld) AUTOMATED DIFFERENTIAL Normal [facility] Eosinophils (Bld) [#/Vol] 0.0 thou/mcL Normal 0.0-0.4 [facility] Eosinophils/100 WBC (Bld) 0.2 % Normal 0-7 [facility] Erythrocyte distribution width (RBC) [Entitic vol] 15.5 % High 11.7-15.0 [facility] Hematocrit (Bld) [Volume fraction] 23.5 % Low 34.0-50.0 [facility] Hemoglobin (Bld) [Mass/Vol] 7.5 g/dL Low 11.5-17.0 [facility] Lymphocytes (Bld) [#/Vol] 1.0 thou/mcL Normal 0.7-4.5 [facility] Lymphocytes/100 WBC (Bld) 13.3 % Low 14-46 [facility] MCH (RBC) [Entitic mass] 27.4 Picograms Normal 27.0-34.0 [facility] MCHC (RBC) [Mass/Vol] 32.0 g/dL Normal 32.0-36.0 [facility] MCV (RBC) [Entitic vol] 85.5 fL Normal 80-98 [facility] Monocytes (Bld) [#/Vol] 0.6 thou/mcL Normal 0.1-1.0 [facility] Monocytes/100 WBC (Bld) 7.5 % Normal 4-13 [facility] Neutrophils (Bld) [#/Vol] 5.8 thou/mcL Normal 1.5-7.8 [facility] Neutrophils/100 WBC (Bld) 78.7 % High 40-74 [facility] Platelet mean volume (Bld) [Entitic vol] 10.5 fL Normal 7.5-11.2 [facility] Platelets (Bld) [#/Vol] 167 thou/mcL Normal 140-415 [facility] RBC (Bld) [#/Vol] 2.75 x(10)6/mcL Low 3.80-5.[address] [facility] WBC (Bld) [#/Vol] 7.3 thou/mcL Normal 4.0-10.5 [facility] PT Coag (PPP) [Time]on 01-04 INR Coag (Bld) [Relative time] 1.0 {INR} Normal [facility] Comment on above: Order Comment: Preho [...] [Time] 13.6 s Normal 11.9-14.[address] [facility] Comment on above: Order Comment: Preho [...] mid left lung, likely atelectasis or scarring. [place] thanks you for the opportunity to care for your patient. Workstation ID: [id number] - [id number] FINAL REPORT Dictated By: Garo Albarado MD 01/04/2021 11:41 Assigned Physician: Garo Albarado MD Reviewed and Electronically Signed By: Garo Albarado MD 01/04/2021 11:45 Transcribed by: [facility] 01/04/2021 11:41 Technologist: [facility] Garo Albarado MD - 01/08/2021 EXAMINATION TYPE: [...] Garo Albarado MD 01/04/2021 11:45 Transcribed by: [facility] 01/04/2021 11:41 Technologist: RAQUEL [employer] [employer] [facility] Radiology Study observation (narrative) [employer] XR CHEST 1 VIEWOrdered By: Austyn Albarado on 01-04-2021 [employer] Work Phone: XR Chest 1 Viewon 01-04-2021 [...] Garo Albarado MD 01/04/2021 11:45 Transcribed by: [facility] 01/04/2021 11:41 Technologist: RAQUEL Normal [facility] Blood type and Indirect anti body screen panel (Bld)on 01-03-2021 Blood group antibody screen Ql Negative Normal NEG [facility] Rh Nom (Bld) Positive Normal [facility] Cell Count Body Fluidon 0 Cell count panel (Body fld) COLOR, FLUID RED Normal [facility] Culture Aerobicon 01-03-2021 Bacteria identified Aer cx Nom (Unsp spec) [facility] Microbiology PROCEDURE: Culture Aerobic SOURCE: Tissue [...] NO EPITHELIALS SEEN, NO ORGANISMS SEEN Normal [facility] Comment on above: Performed By: #### 6 34-6 ####[address] Bacteria identified Aer cx Nom (Unsp spec) [facility] Microbiology PROCEDURE: Culture Aerobic SOURCE: Tissue [...] NO EPITHELIALS SEEN, NO ORGANISMS SEEN Normal [facility] Comment on above: Performed By: #### 6 34-6 ####[address] Bacteria identified Aer cx Nom (Unsp spec) [facility] Microbiology PROCEDURE: Culture Aerobic SOURCE: Tissue [...] NO EPITHELIALS SEEN, NO ORGANISMS SEEN Normal [facility] Comment on above: Performed By: #### 6 34-6 ####[address] Bacteria identified Aer cx Nom (Unsp spec) [facility] Microbiology PROCEDURE: Culture Aerobic SOURCE: Tissue [...] NO EPITHELIALS SEEN, NO ORGANISMS SEEN Normal [facility] Comment on above: Performed By: #### 6 34-6 ####[address] Culture Anaerobicon 01-04-20 21 Bacteria identified Anaer cx Nom (Unsp spec) [facility] Microbiology PROCEDURE: Culture Anaerobic SOURCE: Tissue [...] EDT CONTRIBUTOR_SYSTEM, CO_PN CULTURE IN PROGRESS Normal [facility] Comment on above: Performed By: #### 6 35-3 ####[address] Bacteria identified Anaer cx Nom (Unsp spec) [facility] Microbiology PROCEDURE: Culture Anaerobic SOURCE: Tissue [...] EDT CONTRIBUTOR_SYSTEM, CO_PN CULTURE IN PROGRESS Normal [facility] Comment on above: Performed By: #### 6 35-3 ####[address] Bacteria identified Anaer cx Nom (Unsp spec) [facility] Microbiology PROCEDURE: Culture Anaerobic SOURCE: Tissue [...] 23:34 EDT CONTRIBUTOR_SYSTEM, CO_PN CULTURE IN PROGRESS [facility] Comment on above: Performed By: #### 6 35-3 ####[address] Bacteria identified Anaer cx Nom (Unsp spec) [facility] Microbiology PROCEDURE: Culture Anaerobic SOURCE: Tissue [...] 23:34 EDT CONTRIBUTOR_SYSTEM, CO_PN CULTURE IN PROGRESS [facility] Comment on above: Performed By: #### 6 35-3 ####[facility] [address], [place] Bacteria identified Anaer cx Nom (Unsp spec) [facility] Microbiology PROCEDURE: Culture Anaerobic SOURCE: Joint [...] 22:43 EDT CONTRIBUTOR_SYSTEM, CO_PN CULTURE IN PROGRESS [facility] Comment on above: Performed By: #### 6 35-3 ####[address] [place], [place] Culture Funguson 01-03-2021 Fungus identified Cx Nom (Unsp spec) [facility] Microbiology PROCEDURE: Culture Fungus SOURCE: Tissue [...] WILL BE HELD FOR 1-4 WEEKS Normal [facility] Comment on above: Performed By: #### 5 80-1 ####[address] Fungus identified Cx Nom (Unsp spec) [facility] Microbiology PROCEDURE: Culture Fungus SOURCE: Tissue [...] WILL BE HELD FOR 1-4 WEEKS Normal [facility] Comment on above: Performed By: #### 5 80-1 ####[address] Fungus identified Cx Nom (Unsp spec) [facility] Microbiology PROCEDURE: Culture Fungus SOURCE: Tissue [...] CULTURE WILL BE HELD FOR 1-4 WEEKS [facility] Comment on above: Performed By: #### 5 80-1 ####[address] Fungus identified Cx Nom (Unsp spec) [facility] Microbiology PROCEDURE: Culture Fungus SOURCE: Tissue [...] CULTURE WILL BE HELD FOR 1-4 WEEKS [facility] Comment on above: Performed By: #### 5 80-1 ####[address] Fungus identified Cx Nom (Unsp spec) [facility] Microbiology PROCEDURE: Culture Fungus SOURCE: Joint [...] WILL BE HELD FOR 1-4 WEEKS Normal [facility] Comment on above: Performed By: #### 5 80-1 ####[facility] [address] [place], [place] Hematocriton 01-03-2021 Hematocrit (Bld) [Volume fraction] 31.6 % Low 34.0-50.0 [facility] Hemoglobinon 01-03-2021 Hemoglobin (Bld) [Mass/Vol] 10.4 g/dL Low 11.5-17.0 [facility] OR Nursingon 01-03-2021 OR Nursing Normal [facility] PACU I Nursingon 01-03-2021 PACU I Nursing CO NA PACU I Nursing Record Summary Primary Physician: Calos Smith Jr, MD Finalized Date/Time: 01/03/21 15:55:58 Pt. Name: TRINITY GODINEZ/Sex: 1955 Female Med Rec #: [id number] Physician: Calos Smith Jr, MD Financial #: [id number] Pt. Type: I Room/Bed: / Admit/Disch: 01/03/21 09:09:00 - Institution: [place] NA OR Main PACU I Case Times [...] By: Taryn Leonard RN 01/03/21 15:55 Normal [facility] PT Coag (PPP) [Time]on 01-03 INR Coag (Bld) [Relative time] 1.1 {INR} Normal [facility] Comment on above: Result Comment: DURI [...] Austyn Viveros/Sex: 1955 Female Med Rec #: [id number] Physician: Calos Smith Jr, MD Financial #: [id number] Pt. Type: I Room/Bed: / Admit/Disch: 01/03/21 09:09:00 - Institution: [place] NA OR PreOp Case Times Entry 1 PreOp Case Times In Room Time 01/03/21 09:34:00 Out Room Time 01/03/21 11:38:00 Last Modified By: oZya Hinson RN, I 01/03/21 12:12:43 [facility] NA OR PreOp Case Attendees Entry 1 Case Attendee Lety Tinoco RN Role Performed RN Last Modified By: Lety Tinoco RN 01/03/21 10:14:05 Finalized By: Zoya Hinson RN, I Document Signatures Signed By: Zoya Hinson RN, I 01/03/21 12:12 Normal [facility] Prothrombin Timeon PT Coag (PPP) [Time] 13.7 s Normal 11.9-14.6 [facility] Surgical Pathology Final Rep tom 01-03-2021 Pathology study TRINITY GODINEZ [id number] YRS F [id number] /BD [id number] [id number] ORDERING PHYSICIAN: CALOS SMITH [...] cut surface is rogers-pink, soft and homogeneous. Chute Tender sections are submitted in block A1. (RS/1C/MS/RT) Gross examination was performed at [facility]. AJB:MEI 01/04/21 By: LCIHA ZEPEDA M.D. (Electronic Signature) MICROSCOPIC: The technical component was performed at [facility], [address] [place] [address]. Microscopic examination was performed. Case resulted at [facility]. DIAGNOSIS: Left knee tissue, revision arthroplasty: -DENSE FIBROUS TISSUE WITH PATCHY CHRONIC INFLAMMATION, FOREIGN BODY GIANT CELL REACTION, AND OSSEOUS METAPLASIA. NOTE: Perivascular lymphocytic inflammation is mild and patchy. JH2:JH2:JH21 END OF REPORT END OF REPORT Normal [facility] XR KNEE 1-2 VIEWS LTon 01-03 [...] Kerri Reyna MD 01/03/2021 15:53 Transcribed by: [facility] 01/03/2021 15:49 Technologist: EILEEN IMG HISTORICAL [...] Kerri Reyna MD 01/03/2021 15:53 Transcribed by: [facility] 01/03/2021 15:49 Technologist: EILEEN Tanvi [employer] Radiology Study observation (narrative) [employer] [employer] [facility] XR KNEE 1-2 VIEWS LTOrdered By: Kerri Reyan on 01-03-2021 [employer] Work Phone: XR Knee 1-2 Views LTon [...] Left knee arthroplasty revision as detailed above. [place] thanks you for the opportunity to care for your patient. Workstation ID: [id number] FINAL REPORT Dictated By: Kerri Reyna MD 01/03/2021 15:49 Assigned Physician: Kerri Reyna MD Reviewed and Electronically Signed By: Kerri Reyna MD 01/03/2021 15:53 Transcribed by: STEW 01/03/2021 15:49 Technologist: DT Normal [facility] aPTT Coag (Bld) [Time]on aPTT Coag (PPP) [Time] 25.0 s Normal 23.2-34.6 [facility] Histopathology Requeston Relevant diagnostic tests/laboratory data Narrative SPECIMEN DESCRIPTION 1 LEFT KNEE RESULT SEE SEPARATE REPORT RESULT SEE NOTES REVIEW TAB FOR RESULTS ROUTINE LAB Report Date: 11/24/2020 05:51:32 Collect Date: 11/19/2020 13:56:00 Normal [facility] Basic metabolic 2000 panelon 11-22-2020 Calcium [Mass/Vol] 8.0 mg/dL Low 8.5-10.6 [facility] Chloride [Moles/Vol] 103 mmol/L Normal 98-107 Moun [facility] CO2 [Moles/Vol] 29 mmol/L Normal 21-32 [facility] Creatinine [Mass/Vol] 1.09 mg/dL High 0.55-1.02 [facility] Glucose [Mass/Vol] 93 mg/dL Normal 70-99 [facility] Potassium [Moles/Vol] 4.4 mmol/L Normal 3.5-5.1 [facility] Sodium [Moles/Vol] 138 mmol/L Normal 136-145 [facility] Urea nitrogen (BldV) [Mass/Vol] 18 mg/dL Normal 7.0-18.0 [facility] Urea nitrogen/Creatinine [Mass ratio] 17 mg/mg Normal [facility] CBC W Auto Differential pane l (Bld)on 11-22-2020 Basophils (Bld) [#/Vol] 0.0 thou/mcL Normal 0.0-0.2 [facility] Basophils/100 WBC (Bld) 0.7 % Normal 0-3 [facility] Differential cell count method Nom (Bld) AUTOMATED DIFFERENTIAL Normal [facility] Eosinophils (Bld) [#/Vol] 0.2 thou/mcL Normal 0.0-0.4 [facility] Eosinophils/100 WBC (Bld) 3.5 % Normal 0-7 [facility] Erythrocyte distribution width (RBC) [Entitic vol] 14.3 % Normal 11.7-15.0 [facility] Hematocrit (Bld) [Volume fraction] 24.8 % Low 34.0-50.0 [facility] Hemoglobin (Bld) [Mass/Vol] 8.2 g/dL Low 11.5-17.0 [facility] Lymphocytes (Bld) [#/Vol] 1.1 thou/mcL Normal 0.7-4.5 [facility] Lymphocytes/100 WBC (Bld) 17.5 % Normal 14-46 [facility] MCH (RBC) [Entitic mass] 29.9 Picograms Normal 27.0-34.0 [facility] MCHC (RBC) [Mass/Vol] 33.0 g/dL Normal 32.0-36.0 [facility] MCV (RBC) [Entitic vol] 90.7 fL Normal 80-98 [facility] Monocytes (Bld) [#/Vol] 0.8 thou/mcL Normal 0.1-1.0 [facility] Monocytes/100 WBC (Bld) 13.0 % Normal 4-13 [facility] Neutrophils (Bld) [#/Vol] 4.2 thou/mcL Normal 1.5-7.8 [facility] Neutrophils/100 WBC (Bld) 65.3 % Normal 40-74 [facility] Platelet mean volume (Bld) [Entitic vol] 10.2 fL Normal 7.5-11.2 [facility] Platelets (Bld) [#/Vol] 176 thou/mcL Normal 140-415 [facility] RBC (Bld) [#/Vol] 2.74 x(10)6/mcL Low 3.80-5.[address] 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 N Normal [facility] First test N [facility] ICU N [facility] Illness or injury onset date and time Normal [facility] Patient was hospitalized because of this condition Y Normal [facility] status N [facility] Resides in congregate care setting N [facility] SARS-CoV-2 (COVID-19) RNA REBECCA+probe Ql (Resp) Not detected Normal NDET [facility] Comment on above: Result Comment: This test was performed via the [employer] NOW COVID 19 assay and has been authorized by FDA under an Emergency Use Authorization (EUA). The assay is validated for nasopharyngeal (C IRON WORKER), nasal, and oropharyngeal (OP) direct swabs. The [...] Symptomatic as defined by CDC N Normal [facility] OR Nursingon 11-22-2020 OR Nursing [facility] PT Coag (PPP) [Time]on 11-22 INR Coag (Bld) [Relative time] 1.4 {INR} [facility] Comment on above: Result Comment: DURI [...] room and take this document with you. [facility] 11/22/20 14:48 [address] [place] [address] PATIENT INFORMATION Name: TRINITY GODINEZ Address: [address] [place] [id number] Age: 65 Years Phone: [phone] : 1955 12:00 MRN: [id number] Sex: Female Race: White Ethnicity: Not Hispan/Lat Admitted From: Clinic or [facility] Medical Service: Orthopedic Surgery Nurse Unit/Bed: (RI) 2N 0221-01 Admit Date: 11/19/2020 09:38 PCP: Levi Shine MD PHYSICIANS INVOLVED WITH CARE ------ Attending Physicians: Lius Quinn MD , Calos - Orthopaedic Surg Admitting Physician: Luis Quinn MD , Calos - Orthopaedic Surg Primary Care Physician:Levi Shine MD,[facility], - Consults: Shailesh VEGA , Grabiel Maciel - Infectious Disease Adnrew VEGA , Jose Carrasco - Internal Medicine Mario VEGA , Trey E - Internal Medicine GenHarley, CHAVO - Internal Medicine Angeles VEGA , Kenzie Carrillo - Internal Medicine FOLLOW-UP APPOINTMENTS: Provider: Specialty: Address: Date: Calos Smith Jr, MD Orthopaedic Surg [address] [facility] [address] [facility] [address] (1) Three Weeks Comment: Call for an Appointment AND ANY QUESTIONS OR CONCERNS Provider: Specialty: Address: Date: Grabiel Hicks MD Infectious Disease [address] [facility] [address] (1) Call for an Appointment Comment: 1) call soon for an appointment with Dr. Hicks in 4-5 weeks, 2) you will be on IV antibiotic until the time of your reimplantation, 3) every Sunday the nursing staff will collect blood work (CBC,SR,CRP,Creat, Vanco Trough) and fax to Dr. Hicks ([phone]), 4) call sooner for fever, chills, nausea, vomiting, diarrhea, rash, pain in your PICC arm or worsening condtion of your wound. Provider: Specialty: Address: Date: Levi Shine MD Family Practice [address] [facility] [place] [address] (1) Follow-up as needed Provider: Specialty: Address: Date: [facility] Follow-up as needed Comment: [facility] [phone] ALLERGIES: NSAIDs : Reaction:Anaphylactic reaction Ancef : [...] doses are changed, or new medications (including [id number] products) are added. Ask your doctor if [...] CBC,SR,Creat,CRP, Vanco Trough, fax to Dr. Hicks [phone] 3)IV ATB UNTIL reimplant 4)Call Dr. Hicks [...] Insomnia/Sleep. T (more content not included)... Normal [facility] Prothrombin Timeon 1 PT Coag (PPP) [Time] 16.9 s High 11.9-14.6 Moun t [facility] Vancomycin [Moles/Vol]on Vancomycin random [Mass/Vol] 28.3 ZZ Normal 10.0-50.0 [facility] Basic metabolic 2000 panelon 11-21-2020 Calcium [Mass/Vol] 8.2 mg/dL Low 8.5-10.6 [facility] Chloride [Moles/Vol] 106 mmol/L Normal 98-107 Moun t [facility] CO2 [Moles/Vol] 29 mmol/L Normal 21-32 [facility] Creatinine [Mass/Vol] 1.07 mg/dL High 0.55-1.02 [facility] Glucose [Mass/Vol] 94 mg/dL Normal 70-99 [facility] Potassium [Moles/Vol] 4.3 mmol/L Normal 3.5-5.1 [facility] Sodium [Moles/Vol] 141 mmol/L Normal 136-145 [facility] Urea nitrogen (BldV) [Mass/Vol] 18 mg/dL Normal 7.0-18.0 [facility] Urea nitrogen/Creatinine [Mass ratio] 17 mg/mg Normal [facility] CBC W Auto Differential pane l (Bld)on 11-21-2020 Basophils (Bld) [#/Vol] 0.0 thou/mcL Normal 0.0-0.2 [facility] Basophils/100 WBC (Bld) 0.7 % Normal 0-3 [facility] Differential cell count method Nom (Bld) AUTOMATED DIFFERENTIAL Normal [facility] Eosinophils (Bld) [#/Vol] 0.1 thou/mcL Normal 0.0-0.4 [facility] Eosinophils/100 WBC (Bld) 1.6 % Normal 0-7 [facility] Lymphocytes (Bld) [#/Vol] 1.3 thou/mcL Normal 0.7-4.5 [facility] Lymphocytes/100 WBC (Bld) 18.7 % Normal 14-46 [facility] Monocytes (Bld) [#/Vol] 0.8 thou/mcL Normal 0.1-1.0 [facility] Monocytes/100 WBC (Bld) 12.1 % Normal 4-13 [facility] Neutrophils (Bld) [#/Vol] 4.6 thou/mcL Normal 1.5-7.8 [facility] Neutrophils/100 WBC (Bld) 66.9 % Normal 40-74 [facility] Erythrocyte distribution width (RBC) [Entitic vol] 14.6 % Normal 11.7-15.0 [facility] Hematocrit (Bld) [Volume fraction] 25.9 % Low 34.0-50.0 [facility] Hemoglobin (Bld) [Mass/Vol] 8.5 g/dL Low 11.5-17.0 [facility] MCH (RBC) [Entitic mass] 29.8 Picograms Normal 27.0-34.0 [facility] MCHC (RBC) [Mass/Vol] 32.8 g/dL Normal 32.0-36.0 [facility] MCV (RBC) [Entitic vol] 90.9 fL Normal 80-98 [facility] Platelet mean volume (Bld) [Entitic vol] 9.9 fL Normal 7.5-11.2 [facility] Platelets (Bld) [#/Vol] 181 thou/mcL Normal 140-415 [facility] RBC (Bld) [#/Vol] 2.85 x(10)6/mcL Low 3.80-5.[address] [facility] WBC (Bld) [#/Vol] 7.0 thou/mcL Normal 4.0-10.5 [facility] PT Coag (PPP) [Time]on 11-21 INR Coag (Bld) [Relative time] 1.4 {INR} Normal [facility] Comment on above: Result Comment: NOEMÍ GOMEZ THE INDUCTION PHASE OF ORAL ANTICOAGULATION, THE INR MAY NOT REFLECT THE ANTICOAGULANT STATUS OF THE PATIENT. THERAPEUTIC RANGES FOR INR'S ARE: MOST CLINICAL SITUATIONS: INR 2.0-3.0 MECHANICAL PROSTHETIC VALVES: INR 2.5-3.5 CRITICAL: INR 5.0 Prothrombin Timeon PT Coag (PPP) [Time] 17.1 s High 11.9-14.6 Moun [facility] Basic metabolic 2000 panelon 11-20-2020 Calcium [Mass/Vol] 8.3 mg/dL Low 8.5-10.6 [facility] Chloride [Moles/Vol] 104 mmol/L Normal 98-107 Moun [facility] CO2 [Moles/Vol] 24 mmol/L Normal 21-32 [facility] Creatinine [Mass/Vol] 0.97 mg/dL Normal 0.55-1.02 [facility] Glucose [Mass/Vol] 126 mg/dL High 70-99 [facility] Potassium [Moles/Vol] 4.4 mmol/L Normal 3.5-5.1 [facility] Sodium [Moles/Vol] 139 mmol/L Normal 136-145 [facility] Urea nitrogen (BldV) [Mass/Vol] 18 mg/dL Normal 7.0-18.0 [facility] Urea nitrogen/Creatinine [Mass ratio] 19 mg/mg Normal [facility] CBC W Auto Differential pane l (Bld)on 11-20-2020 Basophils (Bld) [#/Vol] 0.0 thou/mcL Normal 0.0-0.2 [facility] Basophils/100 WBC (Bld) 0.2 % Normal 0-3 [facility] Differential cell count method Nom (Bld) AUTOMATED DIFFERENTIAL Normal [facility] Eosinophils (Bld) [#/Vol] 0.0 thou/mcL Normal 0.0-0.4 [facility] Eosinophils/100 WBC (Bld) 0.0 % Normal 0-7 [facility] Lymphocytes (Bld) [#/Vol] 0.9 thou/mcL Normal 0.7-4.5 [facility] Lymphocytes/100 WBC (Bld) 9.1 % Low 14-46 [facility] Monocytes (Bld) [#/Vol] 0.9 thou/mcL Normal 0.1-1.0 [facility] Monocytes/100 WBC (Bld) 9.2 % Normal 4-13 [facility] Neutrophils (Bld) [#/Vol] 7.8 thou/mcL Normal 1.5-7.8 [facility] Neutrophils/100 WBC (Bld) 81.5 % High 40-74 [facility] Erythrocyte distribution width (RBC) [Entitic vol] 14.7 % Normal 11.7-15.0 [facility] Hematocrit (Bld) [Volume fraction] 30.7 % Low 34.0-50.0 [facility] Hemoglobin (Bld) [Mass/Vol] 10.2 g/dL Low 11.5-17.0 [facility] MCH (RBC) [Entitic mass] 30.3 Picograms Normal 27.0-34.0 [facility] MCHC (RBC) [Mass/Vol] 33.3 g/dL Normal 32.0-36.0 [facility] MCV (RBC) [Entitic vol] 90.9 fL Normal 80-98 [facility] Platelet mean volume (Bld) [Entitic vol] 11.1 fL Normal 7.5-11.2 [facility] Platelets (Bld) [#/Vol] 246 thou/mcL Normal 140-415 [facility] RBC (Bld) [#/Vol] 3.38 x(10)6/mcL Low 3.80-5.[address] [facility] WBC (Bld) [#/Vol] 9.5 thou/mcL Normal 4.0-10.5 [facility] PT Coag (PPP) [Time]on 11-20 INR Coag (Bld) [Relative time] 1.0 {INR} Normal [facility] Comment on above: Result Comment: DHARMESHI NG THE INDUCTION PHASE OF ORAL ANTICOAGULATION, THE INR MAY NOT REFLECT THE ANTICOAGULANT STATUS OF THE PATIENT. THERAPEUTIC RANGES FOR INR'S ARE: MOST CLINICAL SITUATIONS: INR 2.0-3.0 MECHANICAL PROSTHETIC VALVES: INR 2.5-3.5 CRITICAL: INR 5.0 Prothrombin Timeon PT Coag (PPP) [Time] 13.6 s Normal 11.9-14.[address] [facility] Anesthesia Recordon 11-20-19 Anesthesia Record Patient: TRINITY GODINEZ MRN: ([id number] Age: 65 years Sex: Female : 1955 Associated Diagnoses: None Author: Yoselin VEGA , Angel Carrillo Procedure Time Out [place] Protocol: patient identity verified, site verified, side verified, procedure to be done verified, patient position verified. REGIONAL ANESTHESIA PROCEDURE Procedure date and begin time: Peripheral nerve block. Procedure date and end time: See nursing notes. Performed by: Angel Wyatt MD Assisted by: no graduate assistant athletic trainer. Informed consent: signed by patient. Technique: Peripheral [...] Diagnosis Preoperative Diagnosis: Postoperative Diagnosis: . Normal [facility] Culture Aerobicon 11-19-2020 Bacteria identified Aer cx Nom (Unsp spec) [facility] Microbiology PROCEDURE: Culture Aerobic SOURCE: Tissue [...] NO EPITHELIALS SEEN, NO ORGANISMS SEEN Normal [facility] Comment on above: Performed By: #### 6 34-6 ####[address] Bacteria identified Aer cx Nom (Unsp spec) [facility] Microbiology PROCEDURE: Culture Aerobic SOURCE: Tissue [...] POLYS RARE EPIS NO ORGANISMS SEEN Normal [facility] Comment on above: Performed By: #### 6 34-6 ####[address] Bacteria identified Aer cx Nom (Unsp spec) [facility] Microbiology PROCEDURE: Culture Aerobic SOURCE: Tissue [...] POLYS No Epithelials NO ORGANISMS SEEN Normal [facility] Comment on above: Performed By: #### 6 34-6 ####[address] Bacteria identified Aer cx Nom (Unsp spec) [facility] Microbiology PROCEDURE: Culture Aerobic SOURCE: Tissue [...] POLYS No Epithelials NO ORGANISMS SEEN Normal [facility] Comment on above: Performed By: #### 6 34-6 ####[place] Culture Anaerobicon 11-20-19 Bacteria identified Anaer cx Nom (Unsp spec) [facility] Microbiology PROCEDURE: Culture Anaerobic SOURCE: Tissue [...] 20:36 EDT CONTRIBUTOR_SYSTEM, CO_PN CULTURE IN PROGRESS [facility] Comment on above: Performed By: #### 6 35-3 ####[address] Bacteria identified Anaer cx Nom (Unsp spec) [facility] Microbiology PROCEDURE: Culture Anaerobic SOURCE: Tissue [...] 20:36 EDT CONTRIBUTOR_SYSTEM, CO_PN CULTURE IN PROGRESS [facility] Comment on above: Performed By: #### 6 35-3 ####[place] [address] [place], [place] Bacteria identified Anaer cx Nom (Unsp spec) [facility] Microbiology PROCEDURE: Culture Anaerobic SOURCE: Tissue [...] EDT CONTRIBUTOR_SYSTEM, CO_PN CULTURE IN PROGRESS Normal [facility] Comment on above: Performed By: #### 6 35-3 ####[address] Bacteria identified Anaer cx Nom (Unsp spec) [facility] Microbiology PROCEDURE: Culture Anaerobic SOURCE: Tissue [...] EDT CONTRIBUTOR_SYSTEM, CO_PN CULTURE IN PROGRESS Normal [facility] Comment on above: Performed By: #### 6 35-3 ####[place] [address] [place], [place] Culture Funguson 11-19-2020 Fungus identified Cx Nom (Unsp spec) [facility] Microbiology PROCEDURE: Culture Fungus SOURCE: Tissue [...] WILL BE HELD FOR 1-4 WEEKS Normal [facility] Comment on above: Performed By: #### 5 80-1 ####[address] Fungus identified Cx Nom (Unsp spec) [facility] Microbiology PROCEDURE: Culture Fungus SOURCE: Tissue [...] WILL BE HELD FOR 1-4 WEEKS Normal [facility] Comment on above: Performed By: #### 5 80-1 ####[facility] [address] [place], [place] Fungus identified Cx Nom (Unsp spec) [facility] Microbiology PROCEDURE: Culture Fungus SOURCE: Tissue [...] WILL BE HELD FOR 1-4 WEEKS Normal [facility] Comment on above: Performed By: #### 5 80-1 ####[address] Fungus identified Cx Nom (Unsp spec) [facility] Microbiology PROCEDURE: Culture Fungus SOURCE: Tissue [...] WILL BE HELD FOR 1-4 WEEKS Normal [facility] Comment on above: Performed By: #### 5 80-1 ####[address] PACU I Nursingon 11-19-2020 PACU I Nursing CO NA PACU I Nursing Record Summary Primary Physician: Calos Smith Jr, MD Finalized Date/Time: 11/19/20 18:19:26 Pt. Name: TRINITY GODINEZ/Sex: 1955 Female Med Rec #: [id number] Physician: Calos Smith Jr, MD Financial #: [id number] Pt. Type: I Room/Bed: / Admit/Disch: 11/19/20 [...] By: Teresita Franco RN 11/19/20 18:19 Normal [facility] PreOp Nursingon 11-19-2020 PreOp Nursing CO NA PreOp Nursing Record Summary Primary Physician: Calos Smith Jr, MD Finalized Date/Time: 11/19/20 13:09:57 Pt. Name: TRINITY GODINEZ/Sex: 1955 Female Med Rec #: [id number] Physician: Calos Smith Jr, MD Financial #: [id number] Pt. Type: I Room/Bed: / Admit/Disch: 11/19/20 [...] By: Cortes Mcclain RN 11/19/20 13:09 Normal [facility] Surgical Pathology Final Rep tom 11-19-2020 Pathology study TRINITY GODINEZ [id number] YRS F [id number] / [id number] ORDERING PHYSICIAN: CALOS SMITH [...] cut surface is rogers-pink, soft and homogeneous. Chute Tender sections are submitted in block (A1). (RS/1C/MS/RT) Gross examination was performed at [facility]. AJB:ASPEN 11/22/20 By: LICHA ZEPEDA M.D. (Electronic Signature) MICROSCOPIC: The technical component was performed at [facility], [address] [place] [address]. Microscopic examination was performed. Case resulted at [facility]. 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 NOTE: There is no significant perivascular lymphocytic inflammation. JH2:JH2:JH208 END OF REPORT END OF REPORT Normal [facility] XR Knee 1-2 Views LTon 11-19 [...] is present. Anterior skin elvira are noted. [place] thanks you for the opportunity to care for your patient. Workstation ID: [id number] FINAL REPORT Dictated By: Abdias Morejon MD 11/19/2020 16:54 Assigned Physician: Abdias Morejon MD Reviewed and Electronically Signed By: Abdias Morjeon MD 11/19/2020 16:56 Transcribed by: STEW 11/19/2020 16:54 Technologist: BASIL Amador [facility] PreOp Nursingon 11-18-2020 PreOp Nursing CO NA PreOp Nursing Record Summary Primary Physician: Calos Smith Jr, MD Finalized Date/Time: 11/18/20 15:01:45 Pt. Name: TRINITY GODINEZ/Sex: 1955 Female Med Rec #: [id number] Physician: Calos Smith Jr, MD Financial #: [id number] Pt. Type: I Room/Bed: / Admit/Disch: 11/17/20 [...] By: Deisi Wu RN 11/18/20 15:01 Normal [facility] PT Coag (PPP) [Time]on 11-17 INR Coag (Bld) [Relative time] 1.1 {INR} Normal [facility] Comment on above: Result Comment: DURI NG THE INDUCTION PHASE OF ORAL ANTICOAGULATION, THE INR MAY NOT REFLECT THE ANTICOAGULANT STATUS OF THE PATIENT. THERAPEUTIC RANGES FOR INR'S ARE: MOST CLINICAL SITUATIONS: INR 2.0-3.0 MECHANICAL PROSTHETIC VALVES: INR 2.5-3.5 CRITICAL: INR 5.0 Prothrombin Timeon PT Coag (PPP) [Time] 14.1 s Normal 11.9-14.6 [facility] aPTT Coag (Bld) [Time]on aPTT Coag (PPP) [Time] 25.4 s Normal 23.2-34.6 [facility] Basic metabolic 2000 panelon 11-15-2020 Calcium [Mass/Vol] 9.7 mg/dL Normal 8.5-10.6 [facility] Chloride [Moles/Vol] 100 mmol/L Normal 98-107 Moun [facility] CO2 [Moles/Vol] 26 mmol/L Normal 21-32 [facility] Creatinine [Mass/Vol] 1.25 mg/dL High 0.55-1.02 [facility] Glucose [Mass/Vol] 79 mg/dL Normal 70-99 [facility] Potassium [Moles/Vol] 4.0 mmol/L Normal 3.5-5.1 [facility] Sodium [Moles/Vol] 137 mmol/L Normal 136-145 [facility] Urea nitrogen (BldV) [Mass/Vol] 31 mg/dL High 7.0-18.0 [facility] Urea nitrogen/Creatinine [Mass ratio] 25 mg/mg Normal [facility] Blood type and Indirect anti body screen panel (Bld)on 11-15-2020 Blood group antibody screen Ql Negative Normal NEG [facility] Rh Nom (Bld) Positive Normal [facility] C-Reactive Proteinon 021 CRP [Mass/Vol] 5.1 mg/L Normal 0.0-9.0 [facility] CBC W Auto Differential pane l (Bld)on 11-15-2020 Basophils (Bld) [#/Vol] 0.1 thou/mcL Normal 0.0-0.2 [facility] Basophils/100 WBC (Bld) 1.3 % Normal 0-3 [facility] Differential cell count method Nom (Bld) AUTOMATED DIFFERENTIAL Normal [facility] Eosinophils (Bld) [#/Vol] 0.2 thou/mcL Normal 0.0-0.4 [facility] Eosinophils/100 WBC (Bld) 2.7 % Normal 0-7 [facility] Erythrocyte distribution width (RBC) [Entitic vol] 15.2 % High 11.7-15.0 [facility] Hematocrit (Bld) [Volume fraction] 38.1 % Normal 34.0-50.0 [facility] Hemoglobin (Bld) [Mass/Vol] 12.5 g/dL Normal 11.5-17.0 [facility] Lymphocytes (Bld) [#/Vol] 1.8 thou/mcL Normal 0.7-4.5 [facility] Lymphocytes/100 WBC (Bld) 21.9 % Normal 14-46 [facility] MCH (RBC) [Entitic mass] 30.0 Picograms Normal 27.0-34.0 [facility] MCHC (RBC) [Mass/Vol] 32.9 g/dL Normal 32.0-36.0 [facility] MCV (RBC) [Entitic vol] 91.3 fL Normal 80-98 [facility] Monocytes (Bld) [#/Vol] 0.5 thou/mcL Normal 0.1-1.0 [facility] Monocytes/100 WBC (Bld) 6.6 % Normal 4-13 [facility] Neutrophils (Bld) [#/Vol] 5.5 thou/mcL Normal 1.5-7.8 [facility] Neutrophils/100 WBC (Bld) 67.5 % Normal 40-74 [facility] Platelet mean volume (Bld) [Entitic vol] 9.9 fL Normal 7.5-11.2 [facility] Platelets (Bld) [#/Vol] 314 thou/mcL Normal 140-415 [facility] RBC (Bld) [#/Vol] 4.17 x(10)6/mcL Normal 3.80-5.[address] [facility] WBC (Bld) [#/Vol] 8.1 thou/mcL Normal 4.0-10.5 [facility] PT Coag (PPP) [Time]on 11-15 INR Coag (Bld) [Relative time] 1.5 {INR} Normal [facility] Comment on above: Result Comment: NOEMÍ JASON THE INDUCTION PHASE OF ORAL ANTICOAGULATION, THE INR MAY NOT REFLECT THE ANTICOAGULANT STATUS OF THE PATIENT. THERAPEUTIC RANGES FOR INR'S ARE: MOST CLINICAL SITUATIONS: INR 2.0-3.0 MECHANICAL PROSTHETIC VALVES: INR 2.5-3.5 CRITICAL: INR 5.0 Prothrombin Timeon PT Coag (PPP) [Time] 17.7 s High 11.9-14.[address] [facility] Sedimentation Rate rbcon ESR (Bld) [Velocity] 52 mm/h [facility] 0[facility] Coag (Bld) [Time]on aPTT Coag (PPP) [Time] 27.8 s Normal 23.2-34.6 [facility] Consultation Noteon 08-24-19 Consultation Note [id number]. 00CD:127 Normal [facility] Operative Reporton Operative Report [id number] .[id number]:127 Normal [facility] Pathology Noteon 08-23-2020 Pathology Note [id number] .00CD:127 Normal [facility] Consultation Noteon 08-20-19 Consultation Note [id number] .[id number]:127 Normal [facility] Facesheeton 08-19-2020 Facesheet [id number] .00CD:127 Normal [facility] Vital Signs Date Time Vital Sign Value Performing Clinician Taryn travis 04-22-2022 11:44-0500 Body temperature 99.1 [degF] Calos Smith MD Work Phone: [facility] 04-22-2022 11:44-0500 Diastolic blood pressure 62 mm[Hg] Calos Smith MD Work Phone: [employer] [facility] 04-22-2022 11:44-0500 Heart rate 90 /min Calos Smith MD Work Phone: [employer] 04-22-2022 11:44-0500 Respiratory rate 12 /min Calos Smith MD Work Phone: [employer] 04-22-2022 11:44-0500 SaO2% (BldA) [Mass fraction] 92 % Calos Smith MD Work Phone: [employer] 04-22-2022 11:44-0500 Systolic blood pressure 109 mm[Hg] Calos Smith MD Work Phone: [employer] 04-20-2022 12:25-0500 Body height 172.7 cm Calos Smith MD Work Phone: [employer] 04-20-2022 12:25-0500 Body mass index (BMI) [Ratio] 27.12 kg/m2 Calos Smith MD Work Phone: [employer] 04-20-2022 12:25-0500 Body weight 80.9 kg Calos Smith MD Work Phone: [employer] 01-06-2022 10:05-0400 Diastolic blood pressure 63 mm[Hg] Calos Smith MD Work Phone: [employer] 01-06-2022 10:05-0400 Heart rate 84 /min Calos Smith MD Work Phone: [employer] 01-06-2022 10:05-0400 Systolic blood pressure 111 mm[Hg] Calos Smith MD Work Phone: [employer] 01-06-2022 07:55-0400 SaO2% (BldA) [Mass fraction] 96 % Calos Smith MD Work Phone: [employer] 01-06-2022 07:52-0400 Body temperature 97 [degF] Calos Smith MD Work Phone: [employer] 01-06-2022 04:28-0400 Respiratory rate 12 /min Calos Smith MD Work Phone: [employer] 01-03-2022 07:10-0400 Body height 172.7 cm Calos Smith MD Work Phone: [employer] 01-03-2022 07:10-0400 Body mass index (BMI) [Ratio] 27.05 kg/m2 Calos Smith MD Work Phone: [employer] 01-03-2022 07:10-0400 Body weight 80.7 kg Calos Smith MD Work Phone: [employer] 01-08-2021 09:00-0400 SaO2% (BldA) [Mass fraction] 93 % Calos Smith MD Work Phone: [employer] 01-08-2021 08:12-0400 Body temperature 97.2 [degF] Calos Smith MD Work Phone: [employer] 01-08-2021 08:12-0400 Diastolic blood pressure 83 mm[Hg] Calos Smith MD Work Phone: [employer] 01-08-2021 08:12-0400 Heart rate 76 /min Calos Smith MD Work Phone: [employer] 01-08-2021 08:12-0400 Respiratory rate 12 /min Calos Smith MD Work Phone: [employer] 01-08-2021 08:12-0400 Systolic blood pressure 125 mm[Hg] Calos Smith MD Work Phone: [employer] 01-06-2021 13:37-0400 Body height 175.3 cm Claos Smith MD Work Phone: [employer] Comment on above: Pt reported 01-06-2021 13:370400 Body mass index (BMI) [Ratio] 30.41 kg/m2 Calos Smith MD Work Phone: [facility] 01-06-2021 13:370402 Body weight 93.4 kg Calos Smith MD Work Phone: [facility] Comment on above: Actual Encounters Encounter Date Encounter Type Care Provider Facility Start: 09-13-2024 End: 09-13-2024 ambulatory Kimani Reyes Facility:[facility] Start: 02-19-2023 ambulatory [facility] Start: 08-26-2022 End: 08-30-[address] LEVI SHINE . Facility:[facility] Start: 08-25-[address] LEVI SHINE . Facili ty:[facility] Start: 08-23-2022 End: 08-23-2022 ambulatory JACKY HOWELL Facility: Start: 08-22-[address] LEVI SHINE . Facili ty:[facility] Start: 08-01-2022 End: 08-02-[address] LEVI SHINE . Facility:[facility] Start: 05-22-2022 End: 05-23-[address] LEVI SHINE . Facility: Start: 05-04-2022 ambulatory BRITTANY WOOD [facility] Start: 05-03-2022 ambulatory BRITTANY WOOD [facility] Start: 05-02-2022 ambulatory LEVI SHINE [facility] Start: 05-01-2022 ambulatory LEVI SHINE [facility] Start: 04-30-2022 ambulatory BRITTANY NINA [facility] Start: 04-29-2022 ambulatory [facility] Start: 04-29-2022 Encounter for genera l adult medical examination without abnormal findings [facility] Start: 04-28-2022 ambulatory LEVI DANGMarian [facility] Start: 04-27-2022 ambulatory LEVI RL [facility] Start: 04-26-2022 ambulatory LEVI RL [facility] Start: 04-25-2022 ambulatory LEVI RL [facility] Start: 04-24-2022 ambulatory BRITTANY WOOD [facility] Start: 04-23-2022 ambulatory BRITTANY WOOD [facility] Start: 04-20-2022 End: 04-22-2022 Evaluation and management of inpatient LEVI SHINE [facility] Start: 04-20-2022 End: 04-22-2022 Evaluation and management of inpatient Calos Smith MD Work Phone: [facility] Comment on above: Other mechanical com plication of internal left knee prosthesis, initial encounter ([facility]) Start: 04-18-2022 End: 04-18-[address] LEVI SHINE . Facility:[facility] Start: 02-14-[address] LEVI SHINE . Facili ty:[facility] Start: 01-31-2022 End: 03-01-2022 ambulatory SHAIKH Raheem FOWLER Facility:[facility] Start: 01-05-2022 Encounter for preprocedural laboratory examination DR LEVI SHINE . [facility] Start: 01-03-2022 End: 01-06-2022 Evaluation and management of inpatient Calos Smith MD Work Phone: [facility] Start: 01-03-2022 End: 01-06-2022 Subsequent hospital visit by physician Calos Smith MD Work Phone: [facility] Start: 01-02-2022 End: 01-03-[address] LEVI SHINE . Facility:[facility] Start: 01-02-2022 End: 01-03-2022 Encounter for preprocedural laboratory examination DR LEVI SHINE . Facility:[facility] Start: 12-31-2021 ambulatory SHAIKH Raheem FOWLER Facilit y:[facility] Start: 12-12-2021 End: 12-14-[address] LEVI SHINE . Facility:[facility] Start: 10-21-2021 End: 10-22-[address] LEVI SHINE . Facility:[facility] Start: 01-11-2021 ambulatory CALOS SMITH JR. Fac ility:[facility] Start: 01-03-2021 End: 01-08-2021 Evaluation and management of inpatient Calos Smith MD Work Phone: [facility] Start: 05-18-2020 End: 06-17-2020 ambulatory KARAN SULLIVAN Facility:[facility] Start: 05-12-2020 End: 05-27-2020 ambulatory KARAN SULLIVAN Facility:[facility] Procedures Date Procedure Procedure Detail [...] By: #### 3 [id number] #### [facility] [address] [place] [address] Start: 01-05-2022 Prothrombin time Chong Hsieh MD [...] DTaP,Tdap,and Td Vaccines (2 - Tdap) [facility] Start: 04-22-2023 Hypertension/CHF/CAD Annual BMP Blood Test Hypertension/CHF/CAD Annual BMP Blood Test [facility] Start: 01-05-2023 Hypertension/CHF/CAD Annual BMP Blood Test Hypertension/CHF/CAD Annual BMP [facility] Start: 12-01-2021 Influenza vaccination Influenza Vacc ine (#1) [facility] Start: 08-19-2021 COVID-19 Vaccine (4 - Booster for Pfizer series) COVID-19 Vaccine (4 - Booster for Pfizer series) [facility] Start: 01-16-2021 COVID-19 Vaccine (3 - Booster for Pfizer series) COVID-19 Vaccine (3 - Booster for Pfizer series) [facility] Start: 12-20-2020 Hypertension/CHF/CAD Annual BMP Blood Test Hypertension/CHF/CAD Annual BMP Blood Test [facility] Start: 12-15-2020 Adolescent depressio n screening assessment Depression Screening [facility] Start: 12-15-2020 Depression Screening Depression Scre ening [facility] Start: 12-15-2020 Hepatitis C screening Hepatitis C Sc reening [facility] Start: 12-15-2020 HIV screening HIV Screening [facility] Start: 12-15-2020 Lipid panel Cholesterol Sc reening (Lipid Panel) [facility] Start: 12-15-2020 Medicare Annual Well ness Visit Medicare Annual Wellness Visit [facility] Start: 12-15-2020 Screening for malign ant neoplasm of breast Breast Cancer Screening [facility] Start: 12-15-2020 Screening for malign ant neoplasm of colon Colorectal Cancer Screening: Colonoscopy [facility] Start: 12-15-2020 Screening for malign ant neoplasm of lung Lung Cancer Screening (Low Dose CT) [facility] Start: 12-15-2020 Social Influencers o f Health Screening Social Influencers of Health Screening [facility] Start: 12-01-2020 Influenza vaccination Influenza Vacc ine (#1) [facility] Start: 02-01-2016 Pneumococcal Vaccine : Pediatrics (0 to 5 Years) and At-Risk Patients (6 to 64 Years) (2 - PCV) Pneumococcal Vaccine: Pediatrics (0 to 5 Years) and At-Risk Patients (6 to 64 Years) (2 - PCV) [facility] Start: 2007 Zoster Vaccines (1 of 2) Zoster Vacc ngozi (1 of 2) [facility] Start: 1978 Screening for malign ant neoplasm of cervix Cervical Cancer Screening: Pap Smear [facility] Start: 1976 DTaP,Tdap,and Td Vac cines (1 - Tdap) DTaP,Tdap,and Td Vaccines (1 - Tdap) [facility] Start: 1957 Hepatitis B Vaccines (1 of 3 - 3-dose series) Hepatitis B Vaccines (1 of 3 - 3-dose series) [facility] Bacteria identified in Tissue by Culture Culture tissue with gram stain Microbiology Routine 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, initial encounter ([facility]) 04/20/2022 2:13 PM EST [facility] [employer] [facility] Bacteria identified in Unspecified specimen by Anaerobe culture [facility] Work Phone: Bacteria identified in Unspecified specimen by Sterile body fluid culture Culture body fluid with gram stain Microbiology Routine 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, initial encounter ([facility]) 04/20/2022 2:10 PM EST [employer] [facility] End: 01-08-2021 Communication order: Respiratory Communication order: Respiratory Respiratory Care Routine Once for 1 Occurrences starting 01/08/2021 until 01/08/2021 [employer] [facility] Comment on above: Once for 1 Occurrenc es starting 01/08/2021 until 01/08/2021 Fungus identified in Skin by Culture [facility] Incentive spirometry RT Incentiv e spirometry RT Respiratory Care Routine Daily until discontinued starting 01/08/2021 [facility] Comment on above: Daily until disconti nued starting 01/08/2021 Mycobacterium sp identified in Unspecified specimen by Organism specific culture [facility] End: 01-13-2021 Prothrombin time (PT) Prothrombin time with INR Lab Routine Daily for 6 Days starting 01/08/2021 until 01/13/2021, 1 completed [employer] Work Phone: Comment on above: Daily for 6 Days sta rting 01/08/2021 until 01/13/2021, 1 completed Immunizations Immunization Date Immunization Notes Care Provider [facility] 02-10-2021 influenza virus vacc ine, unspecified formulation Calos Smith MD Work Phone: [employer] [employer] [facility] 01-03-2020 influenza virus vacc ine, unspecified formulation Calos Smith MD Work Phone: [employer] Payers Date Payer Category Payer Self-pay 2015 Medicare MEDICARE MEDICAR E RAILROAD [id number] 2015-Present [address] [address] [place] [address] Medicare [id number] 2015 Medicare MEDICARE MEDICAR E RAILROAD [id number] 2015-Present [address] [address] [place] [address] Medicare [id number] 1959 Medicare [id number] 1959 Private Health Insurance [id number] 1957 Unknown [id number] 2.16.840.1.525377.3.579.2 .647 1957 Unknown [id number] 2.16.840.1.650216.3.579.2 .647 1957 Unknown [id number] 2.16.840.1.988999.3.579.2 .593 1957 Unknown [id number] 2.16.840.1.085939.3.579.2 .593 1957 Unknown [id number] 2.16.840.1.982426.3.579.2 .593 1957 Unknown [id number] 2.16.840.1.342530.3.579.2 .593 1957 Unknown [id number] 2.16.840.1.050236.3.579.2 .593 1957 Unknown [id number] 2.16.840.1.766315.3.579.2 .593 1957 Unknown [id number] 2.16.840.1.982945.3.579.2 .593 1957 Unknown [id number] 2.16.840.1.800894.3.579.2 .593 1957 Unknown [id number] 2.16.840.1.986537.3.579.2 .593 1957 Unknown [id number] 2.16.840.1.700905.3.579.2 .593 1957 Unknown [id number] 2.16.840.1.574715.3.579.2 .593 1957 Unknown [id number] 2.16.840.1.613764.3.579.2 .593 1957 Unknown [id number] 2.16.840.1.403575.3.579.2 .593 1957 Unknown [id number] 2.16.840.1.363980.3.579.2 .1143 1957 Unknown [id number] 2.16.840.1.569988.3.579.2 .1143 1957 Unknown [id number] 2.16.840.1.373887.3.579.2 .114 1957 Unknown [id number] 2.16.840.1.453000.3.579.2 .1143 1957 Unknown [id number] 2.16.840.1.062536.3.579.2 .114 1957 Unknown [id number] 2.16.840.1.261474.3.579.2 .114 1957 Unknown [id number] 2.16.840.1.329765.3.579.2 .114 1957 Unknown [id number] 2.16.840.1.054959.3.579.2 .114 1957 Unknown [id number] 2.16.840.1.989637.3.579.2 .114 1957 Unknown [id number] 2.16.840.1.489474.3.579.2 .114 1957 Unknown [id number] 2.16.840.1.448502.3.579.2 .114 Unknown [id number] 2.16.840.1.222530.3.579.2 .531 Social History Date Type Detail Facility Tobacco smoking stat [facility] Unknown if ever smoked [facility] Start: 1955 Sex Assigned At Not on file T [facility] Start: 12-30-2021 Tobacco smoking stat [facility] Ex-smoker [facility] End: 08-31-2021 History of tobacco use Current smoker [facility] End: 08-31-2021 History of tobacco use Cigarette Smoker [facility] Start: 12-30-2021 Tobacco use and exposure Smokeless t obacco non-user [facility] Start: 01-03-2022 End: 04-20-2022 Alcohol intake Lifetime non-drinker (finding) [facility] Start: 12-24-2021 End: 04-20-2022 Exposure to SARS-CoV-2 (event) Not sure [facility] Medical Equipment Procedure Code Equipment Code Equipment Origin al Text Equipment Identifier Dates Cement Bone Biom et R 1x40 - [facility] - [id number])[id number], [id number] FDA Start: 01-03-2022 Knee Tib Brg Ant Stbl [id number] - [facility] - [id number] 1)[id number], [id number] [facility] Start: 01-03-2022 Clinical Notes 11-17-2020 [...] picking her up around 12-12:30. Delroy at [facility] updated pt to arrive around 1. NN spoke with Delroy at [facility]. They can accept the pt today. No HENS needed. Pt will need a covid test [phone] [phone] Delroy will need updated with a transport [...] Clarity 04/20/2022 Hazy Body Fluid Color 04/20/2022 [place] Body Fluid RBC 04/20/2022 25,000 Body Fluid [...] 04/20/2022 16:06 Post-op Progress Note Subjective Procedure: ME RECONSTR DISLOCATING PATELLA W EXT REALIGNMENT AND/OR MUSCLE ADVMNT/RLS [86909] (Left knee extensor mechanism realignment with lateral retinacular release) ME LATERAL RETINACULAR RELEASE OPEN [61136] Interval History: Shannon Godinez, 66 y.o. female, [...] Plan for discharge to Subacute Rehab Facility ([facility] or [facility]) when cleared by PT and medically stable [...] or worsening End of Shift Summary: Progressing [facility]- Referral received and chart reviewed. Patient accepted by [facility]. Spoke to patient over phone and answered questions. She has been to our facility in the past. Will follow in in AM. Patient needs a rapid Covid prior to admission. Alicia Jacobo RN [phone] If [facility] can not accept the patient would like the next referral to [facility] Patient not discharging today called Dr Simpson and telephone order received to start the cleocin 300mg Q12hr for 10days as ordered for discharge Updated the patient she needs to choose another facility and she states she has gone to [facility] and would like a referral and sent. Called Admissions and they will review the referral. Spoke to [facility] and they have no beds. . Have tried constantly for 15 minutes to call [facility] and no one answers. Line rings abut 10 times and then cuts off. [phone] Called Admissions at [facility] and she has the referral and will let CM know shortly if they will accept [facility] Physical Therapy Treatment PT Discharge Recommendations: halfway [...] of care until patient is discharged from [facility]. Objective 04/21/22 1401 General Family/Caregiver [...] End: 04/23/22 Outcomes Date/Time User Outcome 04/20/22 0749 Meghan Muller RN Progressing Encounter Problems (Resolved) [...] daily for 7 days DC aspirin. Called [facility]. [facility] they have the referral and could be able to answer within an hour if they will be able to accept. Message left for Dr Simpson as patient can not take aspirin for a new anticoag order [facility] test deskman. . Admissions is not in for another hour or two. She states they do have beds and faxed the referral to [phone] Patient would like [facility] Referral sent and message left for Admissions Belen Cast [phone] but they are an IPR and since the last IPR said she did not qualify for IPR CM is not anticipating an acceptance. Discussed with the patient and she would liek a referral to [facility] Patient eating lunch. Declines at this time to finish eating. Will attempt again in pm. Patient would like the [facility] in [place], Called the [facility] spoke to Alphonso [phone] She does not have beds until Maybe next week. Updated the patient she would like to try [facility] in [facility] called [phone] spoke to Connie she does not have beds until at less next Sunday Patient would like IPR at [facility] Called Cori [phone] fax [phone] In admissions with referral and she does [...] Plan for discharge to Subacute Rehab Facility ([facility] or [facility]) when cleared by PT and medically stable [...] d/c to SNF when able. [facility] Physical Therapy Evaluation PT Discharge Recommendations: halfway [...] right Complication of internal left knee prosthesis ([facility]) 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, initial encounter ([facility]) Past Medical History: Diagnosis Date Anxiety Arthritis Chronic pain disorder COPD (chronic obstructive pulmonary disease) ([facility]) GERD (gastroesophageal reflux disease) Hypertension Pulmonary embolism ([facility]) 2019 Wears dentures Wears glasses Past [...] of Steps 5 Prior Function Level of [place] Independent with mobility and functional transfers Receives [...] what SNF she wants to go to [facility]. Brother will transport. CM will complete assessment tomorrow However Referral to [facility] faxed to [phone] still need P.T. Eval and will need Written Rx's on Rounds for SNF Son notified not to machine operator hop picker the prescriptions Escribed to her pharmacy. Patient has not arrived to the IP floor for CM assessment Will be seen tomorrow Pain rated at 7 but respiratory rate as low as 9 per minute. Vital signs stable. Meets criteria for discharge/transfer from PACU. documented in this encounter [facility] 04-22-2022 Hospital course Narrative Coumadin-At discharge please follow up with your prescribing provider regarding follow up/labs and appointment. Please follow surgeon's discharge instructions and prescription directions. Surgeon' discharge instructions are in patient's folder- FOLLOW SURGEON INSTRUCTION SHEETS Contact Surgeon's office with any questions/concerns [phone] [facility] -PT/OT Eval [...] (see Additional Instructions)LAST DOSE 04/13 MEDS PER [facility] Additional Instructions: Instructions to prepare for [...] prior to your surgery. Check in at biodiesel production technician desk [phone] [phone]. If Outpatient, these additional instructions apply: An adult must stay with you the whole time you are here and drive you home. An adult must stay with you at home for 24 hours due to Anesthesia. If you have LUPE, you are required to stay 3 hours after your surgery before we can discharge you. documented in this encounter [facility] 04-20-2022 Procedure note Denies need to void. Pad beneath pt dry. [facility] 04-20-2022 Procedure note Denies need to void. Pad beneath pt dry. All medications administered per Whitley Kelley SN witnessed by myself. Dr. Smith notified of patient reporting history of MRSA a couple years ago, has an allergy to Vancomycin and Ancef, currently has Clindamycin ordered. No new orders. 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 PROCEDURE: Left knee arthrotomy, excision of hardware from the patella, lateral retinacular release, proximal realignment of the extensor mechanism. SURGEON: Calos Smith MD HAM SMOKER: Jelani Burgos PA-C. Mr. Burgos was required [...] cleared by general medical consultants, admitted to [facility], evaluated by the anesthesia team. [...] 04/20/2022 15:47:00 AL/ROCIO documented in this encounter [facility] 04-20-2022 Consult note Associated Order (s): [...] Garo Albarado MD 01/04/2021 11:45 Transcribed by: [facility] 01/04/2021 11:41 Technologist: [facility] ECHOCARDIOGRAM No results found for this or any previous visit. [facility] 04-20-2022 Consult note Associated Order (s): [...] any previous visit. documented in this encounter [facility] 04-20-2022 Procedure note All medications administered per Whitley Kelley SN witnessed by myself. [facility] 04-20-[address] Smith notified of patient reporting history of MRSA a couple years ago, has an allergy to Vancomycin and Ancef, currently has Clindamycin ordered. No new orders. [facility] 04-20-2022 History and physical note History and Physical Update ( H&P completed within the previous thirty days ) I personally reviewed the History and Physical, interviewed and examined the patient prior to surgery. No changes have occurred in the patient's condition since the History and Physical was completed. [facility] 04-20-2022 History and physical note History and Physical Update ( H&P completed within the previous thirty days ) I personally reviewed the History and Physical, interviewed and examined the patient prior to surgery. No changes have occurred in the patient's condition since the History and Physical was completed. 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 PROCEDURE: Left knee arthrotomy, excision of hardware from the patella, lateral retinacular release, proximal realignment of the extensor mechanism. SURGEON: Calos Smith MD HAM SMOKER: Jelani Burgos PA-C. Mr. Burgos was required [...] cleared by general medical consultants, admitted to [facility], evaluated by the anesthesia team. [...] CALOS SMITH MD TT: 04/20/2022 15:47:00 AL/ROCIO [facility] 01-06-2022 History of Present illness Narrative All discharge criteria for discharge to home met, medically & surgically. BP u to WNL, tolerating up to bathroom w/o dizziness, lighthedeness. Report called to , station 2 questions answered. Notified Metoprolol and imdur held prior to discharge. Verbalized understanding. Plasma Flow activated for transport to [place]. Per brother. Chemical ice packs for comfort promotion. Spoek with patient and her brother will be here between 9and 10am to transport to [facility]. Faxed HENS Rx' surgeon instruction sheets and AVS to [facility] at [phone]. Dischareg folder to nursing for discharge to [facility]. Rx's in folder for tramadol Oxycodone valium gabapentin restoril Surgeon instruction sheets AVS Transfer Summary Number for report to RN [phone] station 2 [facility] - PROGRESS [...] 11:45 Transcribed by: STEW 01/04/2021 11:41 Technologist: FELTMAKER AND WEIGHER STRESS TEST No results found for this [...] 3 Days Post-Op: Right total knee arthroplasty 35096 - ME ARTHROPLASTY KNEE CONDYLE&PLATEAU MED/LAT CPTS W/WO PATELLA [...] Post-Op status post Right total knee arthroplasty 53634 - ME ARTHROPLASTY KNEE CONDYLE&PLATEAU MED/LAT CPTS W/WO PATELLA [...] 2 Days Post-Op: Right total knee arthroplasty 95287 - ME ARTHROPLASTY KNEE CONDYLE&PLATEAU MED/LAT CPTS W/WO PATELLA [...] Post-Op status post Right total knee arthroplasty 56270 - ME ARTHROPLASTY KNEE CONDYLE&PLATEAU MED/LAT CPTS W/WO PATELLA RESURFACING . - WBAT on the operative extremity - home coumadin, continue lovenox bridge, INR yesterday 0.9 for DVT ppx - PT - Follow-up in clinic in 6 weeks - Plan for discharge to Subacute Rehab Facility ([facility] or [facility]) when cleared by PT and medically stable Spoke to the patient and she called her brother who will be her transport and he wants to leave here by 0900am. Reached out to [facility] to complete Rx's for home meds. Pt sleeping soundly and did not rouse to name of knock. Will attempt again in am. Message left for Admissions Christy at [facility] cell ph [phone] and office [phone] Called [facility] and they Shotblast Operator provided Admissions cell of Christy [phone] Called her and she still does not [...] Subjective Pt agreeable to treatment. Requesting this VISION MIXER move her LEs out of the bed. Education and instruction provided. Requesting bathroom urgently. Mobility noted below. At end of treatment pt sitting in chair awaiting lunch. Continue to follow until pt is d/c from [facility]. Vitals/Pain Pain Assessment Pain Assessment: 0-10 [...] plan to SNF. Awaiting to hear from [facility] for acceptance. Discussed transportation and her brother can transport. Encouraged IS as patient still needs to wean from oxygen. Message left for Admissions at [facility]. [phone] to see if they can accept. GENERAL [...] Pt would like a referral sent to [facility]. She will continue to review the list for choices 2 and 3 in the event [facility] cannot accept. Referral sent via 2,10E+07 Fax. 01/04/22 1531 Clinical Encounter Type Visited With Patient Time Spent 20 Minutes Type of Contact Introduction SPIRITUAL CARE ASSESSMENT Spiritual Care Assessment: Pt appropriate and coping peaceful and positive calderon and family are supportive Spiritual Intervention: Active listening Discuss coping style Hospitality provided [place] given Outcome: Pt shared feelings and values expressed gratitude Plan: PC will return at pt/family request. CM received IB call from Cori with [facility]. They do not have bed availability for [...] completed with mod/max assist. Mobility noted below. [place] pillow placed at right foot to assist in pt right LE positioning as pt position of comfort is with external rotation and knee slightly bent. Education provided. Continue as per PT POC until pt is d/c from [facility]. Vitals/Pain Pain Assessment Pain Assessment: 0-10 [...] comments found. Voice message left for Cori [phone] at [facility]. NN inquiring about the status of referral. [...] Needs Reinforcement Mobility Training, taught by Licha Kelely PTA at 01/04/2022 1:48 PM. Learner: Patient [...] 1 Day Post-Op: Right total knee arthroplasty 43879 - ME ARTHROPLASTY KNEE CONDYLE&PLATEAU MED/LAT CPTS W/WO PATELLA [...] Post-Op status post Right total knee arthroplasty 02185 - ME ARTHROPLASTY KNEE CONDYLE&PLATEAU MED/LAT CPTS W/WO PATELLA [...] tomorrow to acquire update of needed. # [phone] PT note is in and this CM [...] R knee. Pt. Plans to discharge to [facility] as lives alone. Pt. Has [...] Level of Function: Prior Function Level of [place]: Independent with mobility and functional transfers Receives [...] transitioning home alone. Patient has requested [facility]. Patient states her brother will plan to provide transportation at time of discharge. CM was able to reach the admissions dept and the facility is an IPR, no swing bed/ TCU unit at this facility. Patient with multiple co morbidities and this CM will fax the referral for review to [phone] for review. Patient was educated a SNF [...] ID: [id number] - [id number] Dictated By: Garo Albardao MD 01/04/2021 11:41 Assigned Physician: Garo Albarado MD Reviewed and Electronically Signed By: Garo Albarado MD 01/04/2021 11:45 Transcribed by: STEW 01/04/2021 11:41 Technologist: FELTMAKER AND WEIGHER STRESS TEST No results found for this or any previous visit. ECHOCARDIOGRAM No results found for this or any previous visit. CATHETERIZATION No results found for this or any previous visit. ELECTROPHYSIOLOGY RESULT No results found for this or any previous visit. VASCULAR RESULT No results found for this or any previous visit. 12/27/21 1531 Referral Data Referral Reason Discharge Planning [facility] Information County of Residence [place] Patient Information Accompanied by/Relationship telephone call Patient arrived from? Home Support System Extended family Referral To Financial Resources Other (Comment) (no needs identified) Community Resources Other (Comment) (no needs identified) Services Requested DME potential needs No Destination/Placement [facility] Rehab Potential Good CM made telephone call to patient preoperatively to complete initial assessment for discharge planning. Home address and PCP reviewed. Home assessment completed. Patient lives alone in a 1 story home, 5 steps/handrail to enter. Bathroom: tub shower, shower chair. DME reviewed, denies need. Plan: discharge to [facility], brother to provide transportation. Covid testing education provided, patient will schedule. All questions/concerns addressed. documented in this encounter [facility] 01-05-2022 Hospital course Narrative Prescriptions for [...] coumadin clinic regarding Labs and lovenox bridge. [facility] FITTER / WELDER TO HELP MANAGE TO THERAPEUTIC LEVEL -Plasma [...] prior to your surgery. Check in at biodiesel production technician desk [address] [place] [address]. Medication instructions per [facility] recc If Outpatient, these additional instructions apply: An adult must stay with you the whole time you are here and drive you home. An adult must stay with you at home for 24 hours due to Anesthesia. If you have LUPE, you are required to stay 3 hours after your surgery before we can discharge you. documented in this encounter [facility] 01-03-2022 Procedure note Family updated per phone. [facility] 01-03-2022 Procedure note Family updated per [...] this is spam, forward the message to [email or web address]. - [facility], A Member of [employer] OPERATIVE REPORT PATIENT NAME: Trinity Godinez DATE OF : 1955 [facility]#: [id number] SURGEON: Calos Smith MD, FACS DATE OF SERVICE: 01/03/2022 DATE OF SURGERY: 01/03/2022 PREOPERATIVE DIAGNOSIS: OA right knee (M17.11) POSTOPERATIVE DIAGNOSIS: OA right knee (M17.11) PROCEDURE: Primary Right Total Knee Arthroplasty (69624) Femoral Component: Heidi Biomet Vanguard Cruciate Retaining , Size: 62.5mm Tibial Component: Biomet Fixed I-Beam Stem Tibial Tray 75mm Patella Component: Biomet Series A Standard Patella , 31mm Polyethylene: Vanguard ArCom anterior stabilized 12mm Fixation: Biomet Bone Cement with 1g Vancomycin ATTENDING SURGEON: Claos Smith MD, FACS HAM SMOKER: STEPHAN Diane DO INDICATIONS: Patient is a [...] awake, alert, and stable in good condition. HAM SMOKER/ATTENDING PARTICIPATION: STEPHAN Diane DO assisted with proper [...] Calos Smith MD, FACS on 01/03/2022 10:28:45 [facility], A Member of [facility] OPERATIVE REPORT PATIENT NAME: Trinity Godinez DATE OF : 1955 CSN#: [id number] SURGEON: Calos Smith MD, FACS DATE OF SERVICE: 01/03/2022 DATE OF SURGERY: 01/03/2022 REF [id number] LOT [id number] Vanguard Knee System 62.5 MM Uncoated knee femur prosthesis, metallic Use By 2031-11-13 () [id number] (17) [id number] (10) [id number] REF [id number] LOT [id number] Biomet Knee System 75 mm Uncoated knee tibia prosthesis, metallic Use By 2031-10-11 () [id number] (17) 638690 (10) [id number] REF [id number] LOT [id number] Vanguard Knee System 31 mm 8 mm Polyethylene patella prosthesis Use By 2026-10-10 () [id number] (17) 046139 (10) [id number] REF 805745 LOT [id number] Vanguard Knee System 12 MM 75 MM Tibial insert Use By 2026-12-22 (01) [id number] (17) [id number] (10 [id number] documented in this encounter [facility] 01-03-2022 Procedure note Trinity Godinez 1955 ? Retention: Exchange Retention Policy (10 years) Expires: Sun01/01/2032 10:37 AM Retention: Exchange Retention Policy (10 years) Expires: Sun01/01/2032 10:37 AM [email or web address] EXTERNAL CAUTION: This email originated from outside the organization. Do not click links or open any attachments unless you recognize the sender and know the content is safe. If you believe this is spam, forward the message to [email or web address]. - [facility], A Member of [facility] OPERATIVE REPORT PATIENT NAME: Trinity Godinez DATE OF : 1955 [facility]#: [id number] SURGEON: Calos Smith MD, FACS DATE OF SERVICE: 01/03/2022 DATE OF SURGERY: 01/03/2022 PREOPERATIVE DIAGNOSIS: OA right knee (M17.11) POSTOPERATIVE DIAGNOSIS: OA right knee (M17.11) PROCEDURE: Primary Right Total Knee Arthroplasty (23915) Femoral Component: Heidi Biomet Vanguard Cruciate Retaining , Size: 62.5mm Tibial Component: Biomet Fixed I-Beam Stem Tibial Tray 75mm Patella Component: Biomet Series A Standard Patella , 31mm Polyethylene: Vanguard ArCom anterior stabilized 12mm Fixation: Biomet Bone Cement with 1g Vancomycin ATTENDING SURGEON: Calos Smith MD, FACS HAM SMOKER: STEPHAN Diane DO INDICATIONS: Patient is a [...] awake, alert, and stable in good condition. HAM SMOKER/ATTENDING PARTICIPATION: STEPHAN Diane DO assisted with proper [...] Calos Smith MD, FACS on 01/03/2022 10:28:45 [facility], A Member of [facility] OPERATIVE REPORT PATIENT NAME: Trinity Godinez DATE OF : 1955 [facility]#: [id number] SURGEON: Calos Smith MD, FACS DATE OF SERVICE: 01/03/2022 DATE OF SURGERY: 01/03/2022 REF [id number] LOT [id number] Vanguard Knee System 62.5 MM Uncoated knee femur prosthesis, metallic Use By 2031-11-13 () [id number] (17) 239303 (10) [id number] REF 510366 LOT [id number] Biomet Knee System 75 mm Uncoated knee tibia prosthesis, metallic Use By 2031-10-11 () [id number] (17) 736078 (10) [id number] REF [id number] LOT [id number] Vanguard Knee System 31 mm 8 mm Polyethylene patella prosthesis Use By 2026-10-10 () [id number] (17) 040501 (10) [id number] REF 194858 LOT [id number] Vanguard Knee System 12 MM 75 MM Tibial insert Use By 2026-12-22 () [id number] (17) [id number] (10 [id number] [facility] 01-03-2022 History and physical note History and Physical Update ( H&P completed within the previous thirty days ) I personally reviewed the History and Physical, interviewed and examined the patient prior to surgery. No changes have occurred in the patient's condition since the History and Physical was completed. [facility] 01-03-2022 History and physical note History and Physical Update ( H&P completed within the previous thirty days ) I personally reviewed the History and Physical, interviewed and examined the patient prior to surgery. No changes have occurred in the patient's condition since the History and Physical was completed. documented in this encounter [facility] 10-23-2021 Note PROCEDURE: XR KNEE R T 4V or > HISTORY: Pain of right knee joint , chronic COMPARISON: XR knee right 06/20/2020 FINDINGS: BONES:Narrowing of all 3 joint spaces, greatest involving the anterior compartment. Irregular sclerosis of the tibial plateau suggesting possible kpkm-ua-seby contact and weightbearing. SOFT TISSUES:No visible soft [...] authenticated by: GARO CASILLAS Date: 2021-10-23 07:14 [facility] 01-08-2021 Physician Hospital Discharge summary ATTENTION: CUTOVER PATIENT Please Note: This patient was being treated during the EHR conversion from DocDoc to Tier 3 on 01/08/2021 There are two medical records for this patient; one in [facility] and one in [facility]. To see the remainder of the medical record, refer to the [facility] medical record. If you have questions, please contact the Health Information Management Department Patient Name: TRINITY GODINEZ Patient [facility] 01-08-2021 History of Present illness Narrative Faxed orders to [facility] AT [phone] Discharge fodler to nursing for discharge to [facility]. Rx in folder tylenol tramadol oxycodone. Physical Therapy Physical Therapy Treatment Subjective: Pt declined to participate in PT treatment this afternoon, pt stated she would like to rest. Will continue to follow for skilled PT until D/C from [facility]. Problem: Mobility Goal: Patient will [...] from stand Outcome: Progressing Message left for [facility] to see when they can accept the patient Spoke to Delroy at [facility] she does not want the patient to discharge uptil after 1500. Spoke with patient and Granddaughter is planning to be here at that time anyways. Instructed to take the Discharge folder to [facility] and give the entire folder to them [...] Knee Immobilizer when up. May discharge to [facility] if OK with Gen [facility] and Dr Hicks. Orthopedic Progress Note Subjective [...] Immobilizer with out-of-bed. Discharge Plan: today to [facility]. LOS: 5 days VALARIE Gan [...] will need to follow-up with her surveillance physician/office asst post discharge Acute Post Hemorrhagic Anemia (D62) [...] from Last 1 Encounters: 01/06/21 30.41 kg/m @sfdvoj95@ No intake/output data recorded. No intake/output data [...] for: [facility] documented in this encounter [facility] 01-08-2021 Hospital course Narrative Patient will need an INR checked within 3 days of discharge to ECF for warfarin management to be monitored by ECF physician. Also needs outpatient follow-up with nephrology for monitoring of kidney function. Please follow-up with your office asst for ongoing surveillance of your kidney function. You should have an INR checked within 3 days of discharge to ECF for management of your warfarin. documented in this encounter [facility] 01-08-2021 Hospital Discharge instructions Marsha Doan [...] alcohol or with certain drugs. This includes izhw-brb-oxbylsb medicines. Make sure your doctor knows about [...] Where can you learn more? Go to https://www.[employer].net/david chart Enter P175 in the search box to learn more about Learning About Managing Acute Pain at Home. Current as of: July 08, 2020 Content Version: 13.0 [employer]. Care instructions adapted under license by your healthcare professional. If you have questions about a medical condition or this instruction, always ask your healthcare professional. [employer] disclaims any warranty or liability for your [...] Where can you learn more? Go to https://www.[employer].Shook/Bringrsmy chart Enter A180 in the search box to learn more about Learning About Opioids and Acute Pain. Current as of: July 08, 2020 Content Version: 13.0 [employer]. Care instructions adapted under license by your healthcare professional. If you have questions about a medical condition or this instruction, always ask your healthcare professional. [employer] disclaims any warranty or liability for your use of this information. The following attachments cannot be sent through Care Everywhere.Incentive Spirometer: General Info (Namibian)Constipation (Namibian)DVT (Deep Vein Thrombosis): General Info (Namibian)Fall Prevention (Namibian)Opioids: General Info (Namibian)documented in this encounter [facility] 01-07-2021 Hospital Progress note Patient: TRINITY GODINEZ MRN: ([id number] Age: 65 years Sex: Female : 1955 Associated Diagnoses: None Author: Autumn VEGA , Rogelio Villalta Assessment Assessment Diagnosis: Primary osteoarthritis of left knee (YBW35-VC M17.12, Working, Medical), Unilateral primary osteoarthritis, left [...] as needed O2 at bedtime at the [facility]. Nocturnal/supine desaturation. History of congestive heart failure. [...] will need to follow-up with her surveillance physician/office asst post discharge Acute Post Hemorrhagic Anemia (D62) [...] Supervising Physician Comments (more content not included)... [facility] 01-07-2021 Note ID NOW COVID-19_Abbo tt [facility] Progress note Patient: TRINITY GODINEZ MRN: ([id number] Age: 65 years Sex: Female : 1955 [...] Type POSITIVE (01/05) POSITIVE (01/05) Unit # [id number] (01/0556) [id number] (01/05 10:56) List of X-rays performed in last 36 hours No X-rays charted within the last 36 hours I have reviewed the available microbiologic data available at the time (more content not included)... [facility] 01-06-2021 Hospital Progress note Patient: TRINITY GODINEZ MRN: ([id number] Age: 65 years Sex: Female : 1955 Associated Diagnoses: None Author: Rogelio Leyva MD Assessment Assessment Diagnosis: Primary osteoarthritis of left knee (ZCG36-US M17.12, Working, Medical), Unilateral primary osteoarthritis, left [...] as needed O2 at bedtime at the [facility]. Nocturnal/supine desaturation. History of congestive heart failure. [...] will need to follow-up with her surveillance physician/office asst post discharge Acute Post Hemorrhagic Anemia (D62) [...] Documentation By: Consulting (more content not included)... [facility] 01-05-2021 Hospital Progress note Patient: TRINITY GODINEZ MRN: ([id number] Age: 65 years Sex: Female : 1955 Associated Diagnoses: None Author: Rogelio Leyva MD Assessment Assessment Diagnosis: Primary osteoarthritis of left knee (SRF27-GO M17.12, Working, Medical), Unilateral primary osteoarthritis, left [...] to renal issue (more content not included)... [facility] 01-05-2021 Hospital Progress note Patient: TRINITY GODINEZ MRN: ([id number] Age: 65 years Sex: Female : 1955 [...] NEGATIVE (01/03 10:) NEGATIVE (01/03) Unit # [id number] (01/05) [id number] (01/05 06:44) List of X-rays performed in l (more content not included)... [facility] 01-04-2021 Surgery Surgical operation note DICTATED [...] restrictor on the femur. We used a [place] size D tibial cone. Fixation is Biomet bone cement mixed with 1 g vancomycin. This is the gentamicin laden Biomet cement mixed with 1 g vancomycin. SURGEON: Calos Smith MD HAM SMOKER: MD Satish Cheng MD assisted with proper [...] cleared by General Medical consultants, admitted to [facility]. At this point, she was [...] the tibia. We took our reamers from [place] and created the cone for this enhanced [...] distally. We ap (more content not included)... [facility] 01-04-2021 Hospital Progress note Patient: TRINITY GODINEZ MRN: [id number] Age: 65 years Sex: Female : 1955 Associated Diagnoses: None Author: Rogelio Leyva MD Assessment Assessment Diagnosis: Primary osteoarthritis of left knee (PKC06-QZ M17.12, Working, Medical), Unspecified osteoarthritis, unspecified site [...] as needed O2 at bedtime at the [facility]. Nocturnal/supine desaturation. History of congestive heart failure. [...] 3.9 cm. Patient (more content not included)... [facility] 01-03-2021 History and physical note Patient: TRINITY GODINEZ MRN: [id number] Age: 65 years Sex: Female : 1955 Associated Diagnoses: None Author: Rogelio Leyva MD Impression Diagnosis Chronic osteoarthritis (OUM46-KS M19.90, 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 Plan Osteoarthritis Left Knee/left [...] as needed O2 at bedtime at the [facility]. Nocturnal/supine desaturation. GERD - (K21.9) Chronic condition [...] will need to follow-up with her surveillance physician/office asst post discharge Supervising Physician Comments Documentation By: [...] Dexamethasone 10 mg noted given Discussed with BUSINESS CONTINUITY PLANNER Subjective: Rates pain currently -none currently early PACU No nausea, vomiting No Chest pain, sob Past Medical History CHF HTN COPD O2 prn-while in fpc, her O2 sat drops when laying down [...] Tendencies: Surgical/Procedure Hx Revision of knee arthroplasty ([id number]) on 01/03/2021 at 65 Years. Comments: 01/03/2021 13:17 NEIDA Hinson RN , Zoya Berrios Left knee reimplantation Debridement ([id number]) on 11/19/2020 at 65 Years. Comments: 11/19/2020 [...] CBC,SR,Creat,CRP, Vanco Trough, fax to Dr. Hicks [phone] 3)IV ATB UNTIL reimplant 4)Call Dr. Hicks [...] for More Detail Patient: TRINITY GODINEZ MRN: ([id number] Age: 65 years Sex: Female : 1955 Associated Diagnoses: None Author: Alicia Connell RN Impression Diagnosis Chronic osteoarthritis (RAV65-LC M19.90, 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 Plan Supervising Physician Comments Documentation By: Consulting Physician. Chief Complaint Postop Medical Co management History of Present Illness 65 y/o F who is S/P Left TK revision by Dr. Smith who requests post op medical management. Data obtained from pre op H&P. Past Medical History CHF HTN COPD O2 prn-while in [facility], her O2 sat drops when laying down [...] Bleeding Tendencies: Surgical/Procedure Hx Debridement (SNOMED CT [id number]) performed by Luis Quinn MD , Calos [...] CBC,SR,Creat,CRP, Vanco Trough, fax to Dr. Hicks [phone] 3)IV ATB UNTIL reimplant 4)Call Dr. Hicks [...] last 36 hours documented in this encounter [facility] 01-03-2021 Mycobacterium sp Org specific cx Ql (Unsp spec) [facility] Microbiology PROCEDURE: Culture AFB and Stain [...] CONTRIBUTOR_SYSTEM, CO_PN NO ACID FAST BACILLI SEEN [facility] Comment on above: Performed By: #### 5 0941-4 ####[address] 01-03-2021 Mycobacterium sp Org specific cx Ql (Unsp spec) [facility] Microbiology PROCEDURE: Culture AFB and Stain [...] CONTRIBUTOR_SYSTEM, CO_PN NO ACID FAST BACILLI SEEN [facility] Comment on above: Performed By: #### 5 0941-4 ####[address] 01-03-2021 Mycobacterium sp Org specific cx Ql (Unsp spec) [facility] Microbiology PROCEDURE: Culture AFB and Stain [...] CONTRIBUTOR_SYSTEM, CO_PN NO ACID FAST BACILLI SEEN [facility] Comment on above: Performed By: #### 5 0941-4 ####[address] 01-03-2021 Mycobacterium sp Org specific cx Ql (Unsp spec) [facility] Microbiology PROCEDURE: Culture AFB and Stain [...] CONTRIBUTOR_SYSTEM, CO_PN NO ACID FAST BACILLI SEEN [facility] Comment on above: Performed By: #### 5 0941-4 ####[place] [address] [place], [place] 01-03-2021 Bacteria identified Sterile body fluid culture Nom (Unsp spec) [facility] Microbiology PROCEDURE: Culture Body Fluid + [...] RARE POLYS No Epithelials NO ORGANISMS SEEN [facility] Comment on above: Performed By: #### 6 36-1 ####[address] 01-03-2021 Mycobacterium sp Org specific cx Ql (Unsp spec) [facility] Microbiology PROCEDURE: Culture AFB and Stain [...] CONTRIBUTOR_SYSTEM, CO_PN NO ACID FAST BACILLI SEEN [facility] Comment on above: Performed By: #### 5 0941-4 ####[facility] [address] [place], [place] 01-03-2021 Anesthesiology Preoperative evaluation and management note Patient: TRINITY GODINEZ MRN: [id number] Age: 65 years Sex: Female : 1955 [...] Creat,CRP, Vanco Trough, fax to Dr. Hicks [phone])IV ATB UNTIL reimplant4)Call Dr. Hicks for F/C/S, N/V/D, rash, [phone])F/U with Dr Hicks in 4-5 weeks COMMENTS: [...] Yes. The p (more content not included)... [facility] 01-03-2021 Hospital Progress note Patient: TRINITY GODINEZ MRN: [id number] Age: 65 years Sex: Female : 1955 [...] intraneural local anesthetic injection throughout the procedure. [facility] 01-03-2021 Hospital Progress note Patient: TRINITY GODINEZ MRN: [id number] Age: 65 years Sex: Female : 1955 [...] intraneural local anesthetic injection throughout the procedure. [facility] 01-03-2021 Procedure note DICTATED BY: CLAOS SMITH MD SERVICE DATE: 01/03/2021 PREOPERATIVE DIAGNOSIS: [...] 1 g vancomycin. SURGEON: Calos Smith MD HAM SMOKER: MD Satish Cheng MD assisted with proper [...] cleared by General Medical consultants, admitted to [facility]. At this point, she was [...] the tibia. We took our reamers from [facility] and created the cone for this enhanced [...] and we did close this over a #10-Armenian drain. We closed the subcutaneous tissues with 2-0 Vicryl and the skin with elvira. Applied a very bulky dressing and took the patient to the Post-Anesthesia Care Unit in satisfactory condition. Roentgenographs showed satisfactory position and alignment of components. TRINITY GODINEZ Birthdate: 1955 D/01/03/2021 16:37:19 T/01/03/2021 20:53:46 VOICE JOB ID: [id number] Ramy Santos thanks you for the opportunity to care for your patient. DID: [id number] documented in this encounter [facility] 11-23-2020 Surgery Surgical operation note DICTATED [...] to proceed and she is admitted to [facility], evaluated by the anesthesiologist, adductor [...] cement from t (more content not included)... [facility] 11-22-2020 Hospital Progress note Patient: TRINITY GODINEZ MRN: ([id number] Age: 65 years Sex: Female : 1955 [...] N (11/22 13:) Device Identifier ID NOW COVID-19_[employer] EUA (11/22 13:) MPV 10.2 FL [...] Reactions (Selected) Sever (more content not included)... [facility] 11-22-2020 Hospital Progress note Patient: TRINITY GODINEZ MRN: [id number] Age: 65 years Sex: Female : 1955 Associated Diagnoses: None Author: Mario MD , Trey E Assessment Assessment Diagnosis: Osteoarthritis of left knee (ZKX36-ZJ M17.9, 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 Plan A medical consult [...] 2 / l (more content not included)... [facility] 11-22-2020 Note ID NOW COVID-19_[employer] EUA [facility] 11-22-2020 Physician Hospital Discharge summary CLINICAL SUMMARY Please take this summary document to your follow up appointments. [facility] 11/22/20 14:48 [address] [place]. [address] PATIENT INFORMATION Name: TRINITY GODINEZ Address: [address] [place], [place] [address] Age: 65 Years Phone: [phone] : 1955 12:00 MRN: [id number] Sex: Female Race: White Ethnicity: Not Hispan/Lat Admitted From: Clinic or [facility] Medical Service: Orthopedic Surgery Nurse Unit/Bed: (CO) 2N 0221-01 Admit Date: 11/19/2020 09:38 PCP: Levi Shine MD PHYSICIANS INVOLVED WITH CARE Attending Physicians: Luis Quinn MD , Calos - Orthopaedic Surg Admitting Physician: Luis Quinn MD , Calos - Orthopaedic Surg Primary Care Physician:Levi Shine MD,[facility], - Consults: Shailesh VEGA , Grabiel Maciel [...] CBC,SR,Creat,CRP, Vanco Trough, fax to Dr. Hicks [phone] 3)IV ATB UNTIL reimplant 4)Call Dr. Hicks [...] CBC,SR,Creat,CRP, Vanco Trough, fax to Dr. Hicks [phone] 3)IV ATB UNTIL reimplant 4)Call Dr. Hicks for F/C/S, N/V/D, rash, 5)F/U with Dr Hicks in 4-5 weeks. Refills: 0., Call Dr. Hicks if released from your facility before IV therapy completed; Notify Dr. Hicks if Patient is admitted to the hospital. Comment Freetext M (more content not included)... [facility] 11-21-2020 Hospital Progress note Patient: TRINITY GODINEZ MRN: ([id number] Age: 65 years Sex: Female : 1955 Associated Diagnoses: None Author: Shailesh VEGA , Grabiel Maciel Assessment 1. Knee: Status post re-radical debridement. Intraoperative cultures presently pending. 2. History of infection: Trying to obtain culture reports from her Hospital in [place] from last January. 3. Disposition: Anticipate discharge [...] Q4h, PRN: Itching/Pruri (more content not included)... [facility] 11-21-2020 Hospital Progress note Patient: TRINITY GODINEZ MRN: [id number] Age: 65 years Sex: Female : 1955 Associated Diagnoses: None Author: Andrew VEGA , Jose Carrasco Supervising Physician Comments Documentation By: Consulting Physician. Assessment Assessment Diagnosis: Osteoarthritis (PEN51-HM M19.90, 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 Plan Failed left TKR [...] rounds 11/21. Continue to monitor on the DENIO LUPE protocol. Obesity: BMI 33. follow per [...] lab test) CHEMISTRY (more content not included)... [facility] 11-20-2020 Hospital Progress note Patient: TRINITY GODINEZ MRN: [id number] Age: 65 years Sex: Female : 1955 Associated Diagnoses: None Author: Andrew VEGA , Jose Carrasco Supervising Physician Comments Documentation By: Consulting Physician. Assessment Assessment Diagnosis: Osteoarthritis (PTF87-JV M19.90, 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 Plan Failed left TKR [...] rounds 11/20. Continue to monitor on the DENIO LUPE protocol. Obesity: BMI 33. follow per [...] 246 (11/20 04:2 (more content not included)... [facility] 11-19-2020 Hospital Progress note Patient: TRINITY GODINEZ MRN: ([id number] Age: 65 years Sex: Female : 1955 Associated Diagnoses: None Author: Kenzie Reynoso MD Assessment Assessment Diagnosis: Osteoarthritis (CPC14-MJ M19.90, 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 Plan Failed left TKR [...] 16:24:17 See Radiology Report for More Detail [facility] 11-19-2020 Mycobacterium sp Org specific cx Ql (Unsp spec) [facility] Microbiology PROCEDURE: Culture AFB and Stain [...] CONTRIBUTOR_SYSTEM, CO_PN NO ACID FAST BACILLI SEEN [facility] Comment on above: Performed By: #### 5 0941-4 ####[address] 11-19-2020 Mycobacterium sp Org specific cx Ql (Unsp spec) [facility] Microbiology PROCEDURE: Culture AFB and Stain [...] CONTRIBUTOR_SYSTEM, CO_PN NO ACID FAST BACILLI SEEN [facility] Comment on above: Performed By: #### 5 0941-4 ####[address] 11-19-2020 Mycobacterium sp Org specific cx Ql (Unsp spec) [facility] Microbiology PROCEDURE: Culture AFB and Stain [...] CONTRIBUTOR_SYSTEM, CO_PN NO ACID FAST BACILLI SEEN [facility] Comment on above: Performed By: #### 5 0941-4 ####[address] 11-19-2020 Mycobacterium sp Org specific cx Ql (Unsp spec) [facility] Microbiology PROCEDURE: Culture AFB and Stain [...] CONTRIBUTOR_SYSTEM, CO_PN NO ACID FAST BACILLI SEEN [facility] Comment on above: Performed By: #### 5 0941-4 ####[facility] [address] [place], [place] 11-19-2020 Anesthesiology Preoperative evaluation and management note Patient: TRINITY GODINEZ MRN: ([id number] Age: 65 years Sex: Female : 1955 [...] 05:37:52 by Sarah BERMUDEZ , Ange Sloan [place] Medications: ascorbic acid 1,000 mg = 1 [...] mL, 1,000 m (more content not included)... [facility] 11-17-2020 Hospital Progress note Patient: TRINITY GODINEZ MRN: [id number] Age: 65 years Sex: Female : 1955 [...] intrathecal local anesthetic injection throughout the procedure. [facility] 11-17-2020 Anesthesiology Preoperative evaluation and management note Patient: TRINITY GODINEZ MRN: [id number] Age: 65 years Sex: Female : 1955 [...] 20 mL/hr, I (more content not included)... [facility] Evaluation note Diagnosis Pain management documented in this encounter [facility] note* Diagnosis Unilateral primary osteoarthritis, right knee S/P TKR (total knee replacement), right documented in this encounter [facility] note* Diagnosis 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, initial encounter ([facility])- Primary Complication of internal left knee prosthesis ([facility]) documented in this encounter [facility] Discharge instructions* Attachments The following attachments cannot be sent through Care Everywhere. * Acute Pain Management: General Info (Namibian) * Opioids: Safe Use (Namibian) * Fall Prevention (Namibian) * DVT (Deep Vein Thrombosis): Prevention: General Info (Namibian) * Constipation (Namibian) * Incentive Spirometer: General Info (Namibian) * warfarin (oral) (Namibian) * Enoxaparin (Lovenox) (Namibian) [facility] Attachments The following attachments cannot be sent through Care Everywhere. * DVT (Deep Vein Thrombosis): Prevention: General Info (Namibian) * Incentive Spirometer: General Info (Namibian) * Fall Prevention (Namibian) * Opioids: General Info (Namibian) * Constipation (Namibian) * warfarin (oral) (Namibian) * enoxaparin (Namibian) * Antibiotics: General Info (Namibian) [facility] Auth/Cert Specialty Diagnoses / Procedures Referred By Contac t Referred To Contact Diagnoses Unilateral primary osteoarthritis, right knee M17.11 Procedures ME ARTHROPLASTY KNEE CONDYLE&PLATEAU MED/LAT CPTS W/WO PATELLA RESURFACING ME ARTHROPLASTY KNEE CONDYLE&PLATEAU MED/LAT CPTS W/WO PATELLA RESURFACING Right total knee arthroplasty Calos Smith MD [address] [facility] [address] [place] [address] Referral ID Status Reason Start Date Expiration Date Visits Re quested Visits Authorized [id number] 11/08/2021 1 1 [facility] for visit Narrative* Auth/Cert Specialty Diagnoses / Procedures Referred By Contac t Referred To Contact Diagnoses 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, initial encounter ([facility]) t84.093a Procedures ME RECONSTR DISLOCATING PATELLA W EXT REALIGNMENT AND/OR MUSCLE ADVMNT/RLS ME LATERAL RETINACULAR RELEASE OPEN Left knee extensor mechanism realignment with lateral retinacular release Calos Smith MD [address] [place] [address] [place] [address] [place] [address] Referral ID Status Reason Start Date Expiration Date Visits Re quested Visits Authorized [id number] 1 1 [employer] Summary Purpose Family History No Family [...] concluded. Note Patient: TRINITY GODINEZ MRN : [id number] Age: 65 years Sex: Female : 1955 [...] content) DATE CREATED AUTHOR 11/28/2020 Lázaro Bernal [facility] DATE CREATED AUTHOR AUTHOR'S ORGANIZ ATION 01/12/2021 [facility] DATE CREATED AUTHOR AUTHOR'S ORGANIZ ATION 03/04/2021 [facility] DATE CREATED AUTHOR AUTHOR'S ORGANIZ ATION 04/30/2021 [facility] DATE CREATED AUTHOR AUTHOR'S ORGANIZ ATION 09/08/2022 [facility] DATE CREATED AUTHOR AUTHOR'S ORGANIZ ATION 02/21/[address] [facility] DATE CREATED AUTHOR AUTHOR'S ORGANIZ ATION 02/21/2023 [facility] DATE CREATED AUTHOR AUTHOR'S ORGANIZ ATION 09/18/2024 [facility] Ordered Prescriptions (unrec ognized section [...] 1237 (Not Given - Pr ovider: Kym iWlson RN - Reason: Other - Comment: loose [...] 2100 0835 (Given - Provider: Teresita Hirsch RN)212 (Given [...] RN) 0845 (Given - Provider: Teresita Hirsch RN)2042 (Given - Provider: Richard Hernandez RN) [...] allowable dosage forms 2119 (Given - Provider: Ricahrd Hernandez RN) 2040 (Given - Provider: Richard [...] Hernandez RN) 0239 (Given - Provider: Richard Hrenandez, RN)0629 (Given - Provider: Richard Hernandez, AIDAN)1011 [...] Care Teams (unrecognized sec tion and content) Relay Record Clerk Relationship Specialty Start Date End Date Levi Shine MD [address] [place] [address] [phone] PCP - General 11/22/20 Relay Record Clerk Relationship Specialty [place] [address] [place] [phone] PCP - General 11/22/20 Relay Record Clerk Relationship Specialty Start Date End Date Levi Sihne MD [address] [place] [address] PCP - General 11/22/20 FOR RECORDS PERTAINING [...] BE BASED ON THE PRIMARY CLINICAL RECORDS. [facility] [employer] [facility] provides no warranty or guarantee of the accuracy or completeness of information in this document.
[2024-09-22] MEDS: 0.9 % SODIUM CHLORIDE 1,000 ML 125 ML IV ×2 (06:04→18:25)
[2024-09-22 07:25] LABS: Basophils Absolute Auto 0.1 10^3/uL (0.0-0.1); Basophils Percent Auto 0.4 % (0.2-2.0); Eosinophils Absolute Auto 0.1 10^3/uL (0.0-0.7); Eosinophils Percent Auto 0.5 % (0.9-7.0); Hematocrit 31.9 % (36.0-48.0); Hemoglobin 10.2 g/dL (12.0-16.0); Immature Granulocytes Abs Auto 0.21 10^3/uL (0.00-0.03); Immature Granulocytes Pct Auto 1.5 % (0.0-0.5); Lymphocytes Absolute Auto 1.8 10^3/uL (1.2-3.8); Lymphocytes Percent Auto 12.9 % (20.5-60.0); Mean Platelet Volume 12.5 fL (9.5-13.5); Monocytes Percent Auto 14.4 % (1.7-12.0); Neutrophils Absolute Auto 9.8 10^3/uL (1.4-6.5); Neutrophils Percent Auto 70.3 % (43.0-75.0); Platelet Count 153 10^3/uL (150-450); Red Blood Count 3.19 10^6/uL (4.20-5.40); Red Cell Distribution Width 13.6 % (11.0-15.0)
[2024-09-22 07:36] LABS: Bilirubin Urine SMALL (NEGATIVE); Blood Urine NEGATIVE (NEGATIVE); Clarity Urine CLEAR (CLEAR); Color Urine YELLOW (YELLOW); Glucose Urine UA NEGATIVE (NEGATIVE); Ketones Urine NEGATIVE (NEGATIVE); Leukocyte Esterase Urine NEGATIVE (NEGATIVE); Nitrite Urine NEGATIVE (NEGATIVE); Protein Urine TRACE mg/dL (NEG/TRACE); Specific Gravity Urine >=1.030 (1.005-1.025); Urobilinogen Urine 0.2 EU/dL (0.2-1.0); pH Urine 5.5 (5.0-9.0)
[2024-09-22 07:44] LABS: Alanine Aminotransferase 20 U/L (14-59); Albumin Globulin Ratio 0.7; Albumin Level 2.3 g/dL (3.4-5.0); Alkaline Phosphatase 70 U/L (46-116); Anion Gap 14.3; Aspartate Amino Transferase 47 U/L (15-37); Bilirubin Total 0.6 mg/dL (0.2-1.0); Calcium 7.9 mg/dL (8.5-10.1); Chloride 102 mmol/L (98-107); Globulin 3.3 g/dL; Glucose 80 mg/dL (74-106); Potassium 4.3 mmol/L (3.5-5.1); Sodium 133 mmol/L (136-145); Total Protein 5.6 g/dL (6.4-8.2)
[2024-09-22 07:49] LABS: Bacteria Urine SMALL #/HPF (NONE SEEN); Crystals Seen? Seen #/HPF (None Seen); Mucus Urine MODERATE (NONE SEEN); RBC Urine 0-2 #/HPF (0-2); Squamous Epithelial Cell Urine RARE #/LPF (NONE/RARE); WBC Urine 0-2 #/HPF (NONE SEEN)
[2024-09-22 07:50] LABS: Calcium Oxalate Crystals Urine RARE; Cast Seen? SEEN #/LPF (NONE SEEN); Hyaline Casts Urine MODERATE; Urine Culture Indicated YES-FRMC
[2024-09-22 07:53] LABS: Lactate/Lactic Acid 0.8 mmol/L (0.4-2.0)
--- NOTE | 2024-09-22 07:56 | US_ITS ---
The [address] [address] Patient Name: GABRIELA GODINEZ MRN: [id number] date: 1955 Sex: F Assigned Patient Location: [place] Current Patient Location: [place] Accession/Order Number: [id number] Exam Date: 09/22/2024 10:38 Report Date: 09/22/2024 10:42 At the request of: LEVI SHINE MD Procedure: US renal bladder BILATERAL RENAL AND BLADDER ULTRASOUND CLINICAL HISTORY: ARF COMPARISON: CT 09/21/2014 Estimation of renal size is approximately 9.3 cm on the right and 9.1 cm on the left. No shadowing calculi or hydronephrosis are identified. There is a tiny right renal cyst.. There is no perinephric fluid. The urinary bladder is partially distended with a volume of 85 mL. No intraluminal abnormalities are seen. The wall appears slightly irregular though this may relate to the degree of distention. Patient was unable to void. US/US renal bladder IMPRESSION: NO OBSTRUCTIVE UROPATHY. Impression dictated by: Fabienne Serrato M.D. 09/22/2024 10:42 AM Dictation Location: [place] [address] Electronically authenticated by: [id number] Date: 09/22/2024 10:42
[2024-09-22 07:57] LABS: Troponin I High Sensitivity 16.5 pg/mL (4.0-51.3)
--- NOTE | 2024-09-22 07:57 | P.HP_ITS ---
HPI H&P: HPI History of Present Illness Chief complaint: HYPOTENSION, ACUTE RENAL FAILURE, SYNCOPE Narrative: Patient admitted after syncopal episode, she states she was in air conditioning, states she has been drinking plenty of fluids but based on evaluation in the emergency room patient came in with simply significant dehydration and significantly elevated even creatinine consistent with acute renal failure I saw patient up in the medical surgical floor, resting comfortably in bed no specific complaint, just feels generally fatigued Opioid HPI Opioid Management Most Recent Pain and Opioid Data: Last Pain Scale 6 09/16/24, 14:00 Last Pain Intensity 5 09/15/24, 09:28 Last Pain Assessment Today, 03:00 Last MAR Pain Assessment 09/15/24, 08:44 Last ORT Total Score 4 Today, 02:34 Last ORT Risk Category Moderate Risk Today, 02:34 Review of Systems ROS Status of ROS 10 or more systems reviewed and unremark able except as noted in history and below [facility] Medical History (Updated 09/22/24 @ 01:29 by Carlo Busch MD) Depression ?F32.A - Depression, unspecified (ICD-10) Coronary artery disease ?I25.10 - Atherosclerotic heart disease of [place] coronary artery without angina pectoris (ICD-10) Respiratory distress ?R06.03 - Acute respiratory distress (ICD-10) Drug-induced hyperglycemia ?R73.9 - Hyperglycemia, unspecified (ICD-10) ?T50.905A - Adverse effect of unspecified drugs, medicaments and biological substances, initial encounter (ICD-10) Iron deficiency anemia ?D50.9 - Iron deficiency anemia, unspecified (ICD-10) Acute UTI ?N39.0 - Urinary tract infection, site not specified (ICD-10) Physical deconditioning ?R53.81 - Other malaise (ICD-10) Emphysema lung ?J43.9 - Emphysema, unspecified (ICD-10) Acute hypoxic respiratory failure ?J96.01 - Acute respiratory failure with hypoxia (ICD-10) Acute exacerbation of chronic obstructive pulmonary disease ?J44.1 - Chronic obstructive pulmonary disease with (acute) exacerbation (ICD-10) Multiple falls ?R29.6 - Repeated falls (ICD-10) Acute chest wall pain ?R07.89 - Other chest pain (ICD-10) Low back pain ?M54.50 - Low back pain, unspecified (ICD-10) History of glaucoma ?Z86.69 - Personal history of other diseases of the nervous system and sense organs (ICD-10) Medication side effect ?T88.7XXA - Unspecified adverse effect of drug or medicament, initial encounter (ICD-10) Contusion of left chest wall ?S20.212A - Contusion of left front wall of thorax, initial encounter (ICD- 10) GERD (gastroesophageal reflux disease) ?K21.9 - Gastro-esophageal reflux disease without esophagitis (ICD-10) Anxiety ?F41.9 - Anxiety disorder, unspecified (ICD-10) Seasonal allergies ?J30.2 - Other seasonal allergic rhinitis (ICD-10) Bronchitis ?J40 - Bronchitis, not specified as acute or chronic (ICD-10) COPD (chronic obstructive pulmonary disease) ?J44.9 - Chronic obstructive pulmonary disease, unspecified (ICD-10) Hypertension ?I10 - Essential (primary) hypertension (ICD-10) Surgical History (Updated 09/14/24 @ 10:01 by SOPHIA JACKSON) History of cataract surgery ?Z98.49 - Cataract extraction status, unspecified eye (ICD-10) History of appendectomy ?Z90.49 - Acquired absence of other specified parts of digestive tract (ICD- 10) History of hysterectomy ?Z90.710 - Acquired absence of both cervix and uterus (ICD-10) History of left hip replacement ?Z96.642 - Presence of left artificial hip joint (ICD-10) History of right hip replacement ?Z96.641 - Presence of right artificial hip joint (ICD-10) History of total right knee replacement ?Z96.651 - Presence of right artificial knee joint (ICD-10) History of left knee replacement ?Z96.652 - Presence of left artificial knee joint (ICD-10) Family History Mother Family history of CHF (congestive heart failure) Family history of cancer Family history of diabetes mellitus Family history of hypertension Family history of myocardial infarction Brother Family history of cancer Family history of hypertension Social History (Updated 09/22/24 @ 02:43 by Nell Wesley RN) Within the past year, how often did you have a drink containing alcohol: never Score interpretation: A score less than 3 is consistent with normal alcohol consumption. Smoking status: Light tobacco smoker Nicotine containing products detail: 1 cig a day Non-prescribed substance use: denies use Previous occupational history: disabled Highest level of school completed/degree received: some college, no degree Are you now , , , , never or living with a partner: Little interest or pleasure in doing things: not at all Feeling down, depressed, or hopeless: not at all Feel stressed/tense/nervous/anxious/difficulty sleeping: only a little Gender Identity: female Meds Home Medications and Allergies Home Medications ?Medication ?Instructions ?Recorded ?Confirmed ?Type albuterol sulfate 90 mcg/actuation 2 inh inhalation Q6 H PRN shortness 09/26/22 09/21/24 History aerosol inhaler of breath or wheezing cetirizine 10 mg tablet 10 mg PO DAILY 09/26/2209/01 History gabapentin 600 mg tablet 1,200 mg PO .qhs 09/26/22 History isosorbide mononitrate 60 mg 60 mg PO .q24 09/26/22 History tablet,extended release 24 hr metoclopramide HCl 10 mg tablet 10 mg PO .COMPLEX 09/0109/21/24 History metoprolol succinate 100 mg 100 mg PO Q12H 09/26/22 History tablet,extended release 24 hr pantoprazole 40 mg tablet,delayed 40 mg PO DAILY 09/2609/21/24 History release potassium chloride 10 mEq 10 meq PO BID 09/26/2209/21 History tablet,extended release(part/cryst) gabapentin 600 mg tablet 600 mg PO QAM 04/28/2309/21 History venlafaxine 150 mg 150 mg PO DAILY 06/25/23 History capsule,extended release 24 hr venlafaxine 75 mg capsule,extended 75 mg PO DAILY 06/0109/13/24 History release 24 hr methocarbamol 500 mg tablet 500 mg PO Q8H PRN muscle p ain #10 09/08/24 09/21/24 Rx tabs tramadol 50 mg tablet 50 mg PO Q8H PRN pain #14 ta bs 09/08/24 09/21/24 Rx diazepam 2 mg tablet 2 mg PO TID PRN anxiety 08/3109/21/24 History ondansetron 4 mg disintegrating 4 mg PO QID PRN nausea and vomiting 09/13/24 09/21/24 History tablet temazepam 30 mg capsule 30 mg PO QPM PRN sleep 09/1309/21/24 History benzonatate 200 mg capsule 200 mg PO TID PRN cough #30 caps 09/16/24 09/21/24 Rx levofloxacin 750 mg tablet 750 mg PO QD #10 tabs 09/1609/21/24 Rx montelukast 10 mg tablet 10 mg PO QHS #30 tabs 09/21/24 Rx prednisone 10 mg tablet 40 mg (4 x 10 mg) PO DAILY # 32 tabs 09/16/24 09/21/24 Rx Allergies Allergy/AdvReac Type Severity Reaction Status Date / Time NSAIDS (Non-Steroidal Allergy Severe Anaphylaxis Verified 09/21/24 19:39 Anti-Inflamma vancomycin Allergy hair falls Verified 09/21/24 19:39 out morphine AdvReac Intermediate Hives Verified 09/21/24 19:39 baclofen AdvReac Confusion Verified 09/21/24 19:39 Exam Constitutional Vital Signs, click to edit/add: Last Vital Signs Temp 99.0 F 09/22/24 07:47 Pulse 79 09/22/24 07:47 Resp 14 09/22/24 07:47 BP 77/44 L 09/22/24 07:47 Pulse Ox 92 L 09/22/24 07:47 O2 Del Method Nasal Cannula 09/22/24 07:47 O2 Flow Rate 2 09/22/24 07:47 Documenting provider has reviewed patient's vital signs: yes Common normals: no apparent distress Chest Common normals: inspection of chest normal Respiratory Common normals: normal respiratory effort, no use of accessory muscles and clear to auscultation bilaterally Cardio Common normals: regular rate, regular rhythm and no murmurs GI Common normals: soft to palpation, non-tender, no hepatosplenomegaly and no masses; negative for Normal to inspection, nondistended, normoactive bowel sounds present (Obese) Extremity Common normals: normal to inspection, full ROM and no clubbing, cyanosis or edema Neuro Common normals: CN's II-XII intact bilaterally, moves all extremities and no focal motor deficits Results Labs Labs: Short CBC 09/21/24 09/22/24 Range/Units 19:57 07:16 WBC 14.2 H 14.0 H (4.0-11.0) 10^3/uL Hgb 11.0 L 10.2 L (12.0-16.0) g/dL Hct 34.2 L 31.9 L (36.0-48.0) % Plt Count 172 153 (150-450) 10^3/uL BMP 09/21/24 19:57 Sodium 132 L Potassium 4.3 Chloride 97 L Carbon Dioxide 24.1 BUN 51.0 H Creatinine 4.39 H Glucose 103 Calcium 8.1 L Liver Function 09/21/24 Range/Units 19:57 Total Bilirubin 0.6 (0.2-1.0) mg/dL AST 21 (15-37) U/L ALT 17 (14-59) U/L Alkaline Phosphatase 74 (46-116) U/L Albumin 2.5 L (3.4-5.0) g/dL Urine 09/22/24 Range/Units 06:55 Urine Color Yellow (YELLOW) Urine Clarity Clear (CLEAR) Urine pH 5.5 (5.0-9.0) Ur Specific [place] >=1.030 A (1.005-1.025) Urine Protein Trace (NEG/TRACE) mg/dL Urine Glucose (UA) Negative (NEGATIVE) mg/dL Assessment and Plan Assessment and Plan (1) Acute hypotension: (2) Recurrent syncope: (3) Acute renal failure (ARF): (4) Dehydration: (5) Iron deficiency anemia: (6) Emphysema lung: Qualifiers: Emphysema type: unspecified Qualified Code(s): J43.9 - Emphysema, unspecified (7) Hypertension: Qualifiers: Hypertension type: primary hypertension Qualified Code(s): I10 - Essential (primary) hypertension Plan Admission findings: Severe hypotension with systolic blood pressure in the 70s, leukocytosis, hyponatremia, acute renal failure-baseline creatinine 1.0 to, creatinine admission 4.39 which is 430.4% above baseline consistent with acute renal failure Acute renal failure as outlined above-check ultrasound of kidneys, continue with fluid resuscitation History of hypertension-presented with hypotension, holding blood pressure medications currently COPD exacerbation-continue medications from previous admission Iron deficiency anemia-down somewhat today likely related to hydration Hyponatremia-labs pending Syncopal episode-likely related to blood pressure, monitor closely today, check orthostatic vitals, check CPK Generalized anxiety disorder continue with home medications Peripheral neuropathy continue with home medications Angina-continue with home medications Insomnia continue with home medications Admission status: Patient admitted with syncopal episode, hypotension, acute renal failure with creatinine 430.4% above baseline, IV fluids, medically necessary treatment will span 2 midnights. Inpatient status Urinary Catheter Management Urinary Catheter Management Straight: Cath placed during this visit: no
[2024-09-22 08:04] LABS: Creatine Kinase 1352 U/L (26-192); Creatine Kinase MB 16.76 ng/mL (<=3.60)
[2024-09-22 08:05] LABS: Myoglobin 2354 ng/mL (9-82)
[2024-09-22 08:37] LABS: Magnesium 1.8 mg/dL (1.8-2.4)
[2024-09-22 08:47] LABS: BUN Creatinine Ratio 12.1; Estimated GFR (African America 12 (>=60 mL/min/1.73m^2); Estimated GFR (Non-African Ame 10 (>=60 mL/min/1.73m^2)
--- NOTE | 2024-09-22 09:48 | SWNOTE1 ---
I met with pt in room to discuss any needs at discharge. Pt lives at home with two daughters. The home is two stories and she goes up and down the stairs there. Pt is mostly independent, does not drive anymore. Pt has a cane and walker at home to use if needed. She does not use home oxygen. PT/OT do not recommend snf or home health at this time. Pt did not have any other concerns for discharge. SW to follow as needed.
[2024-09-22] MEDS: VENLAFAXINE HCL ER 150 MG CAPSULE PO (10:27)
[2024-09-22] MEDS: GABAPENTIN 300 MG CAPSULE 600 MG PO (10:27)
[2024-09-22] MEDS: VENLAFAXINE HCL ER 75 MG CAPSULE PO (10:27)
[2024-09-22] MEDS: LEVOFLOXACIN 500 MG TABLET PO (10:27)
[2024-09-22] MEDS: PREDNISONE 20 MG TABLET 40 MG PO (10:27)
[2024-09-22] MEDS: PANTOPRAZOLE SODIUM 40 MG TABLET.DR PO (10:28)
[2024-09-22] MEDS: CETIRIZINE HCL 10 MG TABLET PO (10:28)
[2024-09-22] MEDS: 0.9 % SODIUM CHLORIDE 1,000 ML 250 ML IV (10:28)
[2024-09-22] MEDS: METOCLOPRAMIDE HCL 10 MG TABLET PO ×3 (10:28→21:58)
--- NOTE | 2024-09-22 10:50 | SWNOTE1 ---
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
--- NOTE | 2024-09-22 10:53 | SWNOTE1 ---
SW and I met with pt in room to discuss any discharge needs. Pt lives at home alone, she does have family who check on her daily. She uses a walker. Pt does not use home oxygen. SW spoke to pt about recommendations of going to rehab. Pt is agreeable to this and would like the [facility]. Referral sent to the [facility].
[2024-09-22 11:07] LABS: Amphetamine Screen Urine NEGATIVE (NEGATIVE); Barbiturates Screen Urine NEGATIVE (NEGATIVE); Benzodiazepines Screen Urine POSITIVE (NEGATIVE); Buprenorphine Screen Urine NEGATIVE (NEGATIVE); Cannabinoid Screen Urine NEGATIVE (NEGATIVE); Cocaine Screen Urine NEGATIVE (NEGATIVE); Methadone Screen Urine NEGATIVE (NEGATIVE); Methamphetamines Screen Urine NEGATIVE (NEGATIVE); Opiate Screen Urine NEGATIVE (NEGATIVE); Oxycodone Screen Urine NEGATIVE (NEGATIVE); Phencyclidine Screen Urine NEGATIVE (NEGATIVE); Tricyclic Antidepressant Urine NEGATIVE (NEGATIVE)
--- NOTE | 2024-09-22 11:38 | SWNOTE1 ---
Important Message from [employer] discussed with pt. Pt voiced understanding and signed the form. Original given to pt and copy placed in pt's chart.
--- NOTE | 2024-09-22 12:42 | SWNOTE1 ---
SW received a call from Kym at the [facility] and they are able to accept the pt.
[2024-09-22 15:13] LABS: Anion Gap 16.5; BUN Creatinine Ratio 13.5; Calcium 7.8 mg/dL (8.5-10.1); Carbon Dioxide 19.3 mmol/L (21.0-32.0); Chloride 102 mmol/L (98-107); Estimated GFR (African America 14 (>=60 mL/min/1.73m^2); Estimated GFR (Non-African Ame 11 (>=60 mL/min/1.73m^2); Glucose 109 mg/dL (74-106); Potassium 4.8 mmol/L (3.5-5.1); Sodium 133 mmol/L (136-145); Troponin I High Sensitivity 14.8 pg/mL (4.0-51.3)
[2024-09-22 15:31] LABS: Creatine Kinase 1312 U/L (26-192); Creatine Kinase MB 13.87 ng/mL (<=3.60); Myoglobin 1278 ng/mL (9-82)
[2024-09-22] MEDS: MONTELUKAST SODIUM 10 MG TABLET PO (21:58)
[2024-09-22] MEDS: ACETAMINOPHEN 325 MG TABLET 650 MG PO (21:58)
[2024-09-22] MEDS: ENSURE ORIGINAL 237 ML BOTTLE PO (21:58)
[2024-09-22] MEDS: GABAPENTIN 400 MG CAPSULE 1200 MG PO (21:58)
[2024-09-23] VITALS (25 sets, daily range): BP systolic 80–128; BP diastolic 49–76; PULSE 60–92; TEMP 36.3–36.7; O2SAT 90–97
[2024-09-23] MEDS: 0.9 % SODIUM CHLORIDE 1,000 ML 125 ML IV (02:49)
--- NOTE | 2024-09-23 05:18 | PC.NURSE ---
Patients son called for updates. Son voiced concerns over Mom's addiction to pain pills and abuse of them. Son stated his Mom is noncompliant with rx orders.
[2024-09-23 06:35] LABS: Hematocrit 30.7 % (36.0-48.0); Hemoglobin 9.8 g/dL (12.0-16.0); Mean Corpuscular HGB Conc 31.9 g/dL (29.9-35.2); Mean Corpuscular Hemoglobin 31.9 pg (26.7-34.0); Mean Platelet Volume 12.3 fL (9.5-13.5); Platelet Count 148 10^3/uL (150-450); Red Blood Count 3.07 10^6/uL (4.20-5.40); Red Cell Distribution Width 13.3 % (11.0-15.0); White Blood Count 9.6 10^3/uL (4.0-11.0)
[2024-09-23 06:51] LABS: Anion Gap 11.9; Calcium 8.1 mg/dL (8.5-10.1); Carbon Dioxide 24.3 mmol/L (21.0-32.0); Chloride 109 mmol/L (98-107); Estimated GFR (African America 20 (>=60 mL/min/1.73m^2); Estimated GFR (Non-African Ame 16 (>=60 mL/min/1.73m^2); Glucose 149 mg/dL (74-106); Potassium 5.2 mmol/L (3.5-5.1); Sodium 140 mmol/L (136-145)
[2024-09-23 07:12] LABS: Troponin I High Sensitivity 8.9 pg/mL (4.0-51.3)
[2024-09-23 07:16] LABS: Anisocytosis 1+; Band Neutrophils Absolute 0.1 10^3/uL (0.0-0.3); Lymphocytes Absolute Manual 0.57 10^3/uL (1.20-3.80); Macrocytosis 1+; Monocytes Absolute Manual 0.76 10^3/uL (0.30-0.80); Segmented Neut Absolute Manual 8.16 10^3/uL (1.4-6.5)
[2024-09-23 07:24] LABS: Creatine Kinase 636 U/L (26-192); Creatine Kinase MB 9.43 ng/mL (<=3.60); Myoglobin 301 ng/mL (9-82)
--- NOTE | 2024-09-23 07:41 | P.PN_ITS ---
Progress Note: Subjective Subjective Interval history: No Complaint except rib pain - no light headed spells Exam Constitutional Vital Signs, click to edit/add: Last Vital Signs Temp 97.9 F 09/23/24 04:25 Pulse 60 09/23/24 06:09 Resp 18 09/23/24 04:25 BP 100/59 09/23/24 04:25 Pulse Ox 94 L 09/23/24 05:27 O2 Del Method Room Air 09/23/24 05:27 O2 Flow Rate 1 09/23/24 04:37 Documenting provider has reviewed patient's vital signs: yes Common normals: no apparent distress Chest Common normals: inspection of chest normal Respiratory Common normals: normal respiratory effort, no use of accessory muscles and clear to auscultation bilaterally Cardio Common normals: regular rate, regular rhythm and no murmurs GI Common normals: soft to palpation, non-tender, no hepatosplenomegaly and no masses; negative for Normal to inspection, nondistended, normoactive bowel sounds present (Obese) Extremity Common normals: normal to inspection, full ROM and no clubbing, cyanosis or edema Neuro Common normals: CN's II-XII intact bilaterally, moves all extremities and no focal motor deficits Progress Note: Objective Labs Labs: Short CBC 09/23/24 Range/Units 06:29 WBC 9.6 (4.0-11.0) 10^3/uL Hgb 9.8 L (12.0-16.0) g/dL Hct 30.7 L (36.0-48.0) % Plt Count 148 L (150-450) 10^3/uL BMP 09/22/24 09/22/24 09/23/24 07:16 14:11 06:29 Sodium 133 L 133 L 140 Potassium 4.3 4.8 5.2 H Chloride 102 102 109 H Carbon Dioxide 21.0 19.3 L 24.3 BUN 53.0 H 54.0 H 49.0 H Creatinine 4.38 H 4.01 H 2.89 H Glucose 80 109 H 149 H Calcium 7.9 L 7.8 L 8.1 L Cardiac Enzymes 09/22/24 09/22/24 09/23/24 Range/Units 07:16 14:11 06:29 Total Creatine Kinase 1352 H* 1312 H* 636 H* (26-192) U/L CK-MB (CK-2) 16.76 H* 13.87 H* 9.43 H* (<=3.60) ng/mL Liver Function 09/22/24 Range/Units 07:16 Total Bilirubin 0.6 (0.2-1.0) mg/dL AST 47 H (15-37) U/L ALT 20 (14-59) U/L Alkaline Phosphatase 70 (46-116) U/L Albumin 2.3 L (3.4-5.0) g/dL Progress Note: A&P Assessment and Plan (1) Acute hypotension: (2) Recurrent syncope: (3) Acute renal failure (ARF): (4) Dehydration: (5) Iron deficiency anemia: (6) Emphysema lung: Qualifiers: Emphysema type: unspecified Qualified Code(s): J43.9 - Emphysema, unspecified (7) Hypertension: Qualifiers: Hypertension type: primary hypertension Qualified Code(s): I10 - Essential (primary) hypertension Plan Admission findings: Severe hypotension with systolic blood pressure in the 70s, leukocytosis, hyponatremia, acute renal failure-baseline creatinine 1.0 to, creatinine admission 4.39 which is 430.4% above baseline consistent with acute renal failure Acute renal failure as outlined above- U/S was fine - no obstruction - Creatinine better Hyperkalemia - one dose Lokelma History of hypertension-presented with hypotension, cont to be holding blood pressure medications currently COPD exacerbation-continue medications from previous admission Iron deficiency anemia-down somewhat today likely related to hydration Hyponatremia-labs pending Syncopal episode-likely related to blood pressure, monitor closely today, check orthostatic vitals, check CPK Generalized anxiety disorder continue with home medications Peripheral neuropathy continue with home medications Angina-continue with home medications Chest wall pain - Lidocaine patch Insomnia continue with home medications Admission status: Patient admitted with syncopal episode, hypotension, acute renal failure with creatinine 430.4% above baseline, IV fluids, medically necessary treatment will span 2 midnights. Inpatient status Urinary Catheter Management Urinary Catheter Management Straight: Cath placed during this visit: no
[2024-09-23] MEDS: CETIRIZINE HCL 10 MG TABLET PO (08:55)
[2024-09-23] MEDS: VENLAFAXINE HCL ER 150 MG CAPSULE PO (08:55)
[2024-09-23] MEDS: PANTOPRAZOLE SODIUM 40 MG TABLET.DR PO (08:55)
[2024-09-23] MEDS: METOCLOPRAMIDE HCL 10 MG TABLET PO ×4 (08:55→21:05)
[2024-09-23] MEDS: GABAPENTIN 300 MG CAPSULE 600 MG PO (08:55)
[2024-09-23] MEDS: VENLAFAXINE HCL ER 75 MG CAPSULE PO (08:55)
[2024-09-23] MEDS: PREDNISONE 20 MG TABLET 40 MG PO (08:55)
[2024-09-23] MEDS: ENSURE ORIGINAL 237 ML BOTTLE PO ×2 (08:56→21:04)
[2024-09-23] MEDS: SODIUM ZIRCONIUM CYCLOSILICATE 10 GM POWD.PACK PO (09:36)
[2024-09-23] MEDS: LIDOCAINE 5% PATCH 1 PATCH TOPICAL (09:37)
[2024-09-23] MEDS: ACETAMINOPHEN 325 MG TABLET 650 MG PO (09:37)
--- NOTE | 2024-09-23 11:33 | SWNOTE1 ---
MICHAEL and I met with pt to discuss how therapy went today and if she wants to continue the plan of going to [facility] for rehab or home with home health. Pt voiced she did better today with therapy. MICHAEL advised pt that going to rehab may be better for her because she tried to go home last visit and ended up back at the hospital. At this time pt is going to stick with the plan of going to the [facility] and plans to stay for just a week. SW will stop back in tomorrow to see how she is doing.
--- NOTE | 2024-09-23 13:25 | SWNOTE1 ---
Faxed updates to the [facility].
[2024-09-23] MEDS: TEMAZEPAM 15 MG CAPSULE 30 MG PO (21:04)
[2024-09-23] MEDS: TRAMADOL HCL 50 MG TABLET PO (21:04)
[2024-09-23] MEDS: GABAPENTIN 400 MG CAPSULE 1200 MG PO (21:04)
[2024-09-23] MEDS: MONTELUKAST SODIUM 10 MG TABLET PO (21:04)
[2024-09-24] VITALS (20 sets, daily range): BP systolic 108–157; BP diastolic 65–80; PULSE 81–116; TEMP 36.4–36.8; O2SAT 90–94
[2024-09-24 06:04] LABS: Basophils Percent Auto 0.1 % (0.2-2.0); Eosinophils Percent Auto 0.2 % (0.9-7.0); Hematocrit 30.7 % (36.0-48.0); Hemoglobin 9.7 g/dL (12.0-16.0); Immature Granulocytes Abs Auto 0.06 10^3/uL (0.00-0.03); Immature Granulocytes Pct Auto 0.6 % (0.0-0.5); Lymphocytes Percent Auto 9.6 % (20.5-60.0); Mean Corpuscular HGB Conc 31.6 g/dL (29.9-35.2); Mean Corpuscular Hemoglobin 31.4 pg (26.7-34.0); Mean Corpuscular Volume 99.4 fL (81.0-99.0); Mean Platelet Volume 12.5 fL (9.5-13.5); Monocytes Percent Auto 9.7 % (1.7-12.0); Neutrophils Percent Auto 79.8 % (43.0-75.0); Platelet Count 161 10^3/uL (150-450); Red Blood Count 3.09 10^6/uL (4.20-5.40); Red Cell Distribution Width 13.6 % (11.0-15.0)
[2024-09-24 06:42] LABS: Creatine Kinase 205 U/L (26-192); Myoglobin 103 ng/mL (9-82)
[2024-09-24 06:46] LABS: BUN Creatinine Ratio 26.4; Carbon Dioxide 22.9 mmol/L (21.0-32.0); Chloride 112 mmol/L (98-107); Creatine Kinase MB 4.45 ng/mL (<=3.60); Estimated GFR (African America 34 (>=60 mL/min/1.73m^2); Estimated GFR (Non-African Ame 28 (>=60 mL/min/1.73m^2); Glucose 137 mg/dL (74-106); Potassium 4.9 mmol/L (3.5-5.1); Sodium 144 mmol/L (136-145)
[2024-09-24 06:47] LABS: Calcium 8.3 mg/dL (8.5-10.1)
[2024-09-24] MEDS: ENSURE ORIGINAL 237 ML BOTTLE PO ×2 (08:50→21:19)
[2024-09-24] MEDS: METOCLOPRAMIDE HCL 10 MG TABLET PO ×4 (08:51→21:18)
[2024-09-24] MEDS: VENLAFAXINE HCL ER 75 MG CAPSULE PO (08:51)
[2024-09-24] MEDS: VENLAFAXINE HCL ER 150 MG CAPSULE PO (08:51)
[2024-09-24] MEDS: PANTOPRAZOLE SODIUM 40 MG TABLET.DR PO (08:51)
[2024-09-24] MEDS: PREDNISONE 20 MG TABLET 40 MG PO (08:51)
[2024-09-24] MEDS: CETIRIZINE HCL 10 MG TABLET PO (08:51)
[2024-09-24] MEDS: GABAPENTIN 300 MG CAPSULE 600 MG PO (08:51)
[2024-09-24] MEDS: LEVOFLOXACIN 500 MG TABLET PO (08:52)
--- NOTE | 2024-09-24 09:07 | REH.PTDLY ---
Physical Therapy Daily Note PT Daily Note/Assess Start: 09/23/24 08:22 Freq: Status: Active Protocol: Document 09/24/24 09:01 MARIA R (Rec: 09/24/24 09:06 MARIA R [id number]) Physical Therapy Daily Note/Assessment Time In 08:17 Time Out 08:37 Subjective Pt up in chair upon arrival, just ordered breakfast. Still having rib pain, rates as 7/10. No other complaints, feeling better pt states. Plan is to go to rehab tomorrow for a short time pt states. Therapeutic Exercise 8 Minutes (minutes) Therapeutic Exercise 0 Units Therapeutic Exercise Instructed in B LE seated exs 10x ea with AP, LAQ, Treatment marching, and hip add squeeze for improved strength for ease of gait and transfers. With legs elevated instructed in QS, SLR, and hip abd slides. Pt fatigues with SLR Therapeutic Activity 10 Minutes (minutes) Therapeutic Activity 1 Units Therapeutic Activity Sit to stand from chair CGA. Gait training with RW CGA Comments 150 feet with pt relying on RW. Cues for posture as pt tends to lean forward while pushing RW. Pt has mild shortness of breath after gait. Short seated rest break and then instructed in sit to stand transfers 6x in a row with fatigue on last rep, pt performing slower. Total Therapy 18 Minutes Total Physical 1 Therapy Units Daily Note Summary Pt improving overall since initial PT eval. Able to ambulate today without standing rest break, but fatigued once returned to chair. Pt would benefit from further therapy for improved strength to ease transfers and reduce fatigue with gait training.
--- NOTE | 2024-09-24 12:11 | CM.NOTE ---
Rounds made with Dr. Arreola. Dr. Arreola reviews plan of care-continue current treatment. No discharge today.
--- NOTE | 2024-09-24 13:41 | PM.IMPN1 ---
Progress Note: A&P Assessment and Plan (1) Acute hypotension: (2) Recurrent syncope: (3) Acute renal failure (ARF): (4) Dehydration: (5) Iron deficiency anemia: (6) Emphysema lung: Qualifiers: Emphysema type: unspecified Qualified Code(s): J43.9 - Emphysema, unspecified (7) Hypertension: Qualifiers: Hypertension type: primary hypertension Qualified Code(s): I10 - Essential (primary) hypertension Plan Syncopal episode due to severe hypotension, shock multifactorial, septic as well as due to dehydration and rhabdomyolysis SABAS on CKD in the setting of rhabdomyolysis as well as renal acidemia and dehydration Component of COPD exacerbation -Continuing with IV levaquin - Renal function improving, will continue with the same management, I will hold off on IV fluids additionally as the patient is drinking and eating - I agree with prednisone 40 mg daily as well as I will add to her regimen - Strict I's and O's and monitor patient's - Monitor patient's electrolyte - I discussed the plan with the patient in details. Answered all her questions and addressed her concerns. Internal Medicine - PN: Subj Subjective Interval history: Patient seen and examined at bedside. She is a patient of Dr. Sanderson, whom I am covering for today. Denies any issues overnight. Sitting up in chair very pleasant and cooperative. Exam Narrative Exam Narrative: Common normals: no apparent distress, pleasant cooperative and sitting up in chair Neck: Soft, supple, no lymphadenopathy, no JVD Chest Common normals: inspection of chest normal, there is some wheezing but no crackles Respiratory Common normals: normal respiratory effort, no use of accessory muscles and clear to auscultation bilaterally Cardio Common normals: regular rate, regular rhythm and no murmurs GI Common normals: soft to palpation, non-tender, no hepatosplenomegaly and no masses; negative for Normal to inspection, nondistended, normoactive bowel sounds present (Obese) Extremity Common normals: normal to inspection, full ROM and no clubbing, cyanosis or edema Neuro Common normals: CN's II-XII intact bilaterally, moves all extremities and no focal motor deficits Constitutional Vital Signs, click to edit/add: Last Vital Signs Temp 98 F 09/24/24 11:48 Pulse 101 H 09/24/24 12:00 Resp 20 09/24/24 11:48 BP 108/65 09/24/24 11:48 Pulse Ox 92 L 09/24/24 11:48 O2 Del Method Room Air 09/24/24 11:48 O2 Flow Rate 1 09/23/24 04:37 Internal Medicine - PN: Obj Da Labs Labs: Laboratory Results - last 24 hr 09/24/24 05:56 WBC 10.0 RBC 3.09 L Hgb 9.7 L Hct 30.7 L MCV 99.4 H MCH 31.4 MCHC 31.6 RDW 13.6 Plt Count 161 MPV 12.5 Neut % (Auto) 79.8 H Lymph % (Auto) 9.6 L [place] % (Auto) 9.7 Eos % (Auto) 0.2 L Baso % (Auto) 0.1 L Neut # (Auto) 8.0 H Lymph # (Auto) 1.0 L [place] # (Auto) 1.0 H Eos # (Auto) 0.0 Baso # (Auto) 0.0 Abs Immat Gran (auto) 0.06 H Imm/Tot Granulo (auto) 0.6 H Sodium 144 Potassium 4.9 Chloride 112 H Carbon Dioxide 22.9 Anion Gap 14.0 BUN 47.0 H Creatinine 1.78 H Est GFR ( Amer) 34 L Est GFR (Non-Af Amer) 28 L BUN/Creatinine Ratio 26.4 Glucose 137 H Calcium 8.3 L Total Creatine Kinase 205 H CK-MB (CK-2) 4.45 H* Myoglobin 103 H Troponin I High Sens 9.0 NT-Pro-B Natriuret Pep 5309.0 H* Urinary Catheter Management Urinary Catheter Management Straight: Cath placed during this visit: no
--- NOTE | 2024-09-24 13:43 | XR_ITS ---
[address] [address] Patient Name: GABRIELA GODINEZ MRN: [id number] date: 1955 Sex: F Assigned Patient Location: [place] Current Patient Location: [place] Accession/Order Number: [id number] Exam Date: 09/24/2024 14:22 Report Date: 09/24/2024 14:31 At the request of: GWENDOLYN MEMBRENO MD Procedure: XR chest 2V XR chest 2V 09/24/2024 2:04 PM SIGNS AND SYMPTOMS: ^bilateral wheezing PROTOCOL: Frontal and lateral radiographs of the chest COMPARISON: 09/21/2024 FINDINGS: The trachea is midline. The shoulders. The heart and mediastinal structures are within normal limits. There is scarring in the left mid chest similar to the prior exam. The bony thorax is intact. XR/XR chest 2V IMPRESSION: No acute cardiopulmonary pathology. Impression dictated by: Gold Ellis M.D. 09/24/2024 2:31 PM Dictation Location: [place] [address] Electronically authenticated by: [id number] Y Date: 09/24/2024 14:31
--- NOTE | 2024-09-24 13:45 | ECG_ITS ---
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 Measurements Intervals [place] Rate: 105 P: 82 NC: 141 QRS: 77 QRSD: 76 T: 76 QT: 297 QTc: 393 Interpretive Statements SINUS TACHYCARDIA ABNORMAL RHYTHM ECG Compared to ECG 09/21/2024 19:38:21 Ectopic atrial rhythm no longer present Electronically Signed On 09-24-2024 20:02:08 EDT by GELACIO SHORT M.D.
[2024-09-24] MEDS: IPRATROPIUM/ALBUTEROL SULFATE 3 ML AMPUL.NEB IH ×2 (16:00→22:05)
[2024-09-24] MEDS: GABAPENTIN 400 MG CAPSULE 1200 MG PO (21:18)
[2024-09-24] MEDS: MONTELUKAST SODIUM 10 MG TABLET PO (21:18)
[2024-09-24] MEDS: TEMAZEPAM 15 MG CAPSULE 30 MG PO (21:22)
[2024-09-25] VITALS (7 sets, daily range): BP systolic 140; BP diastolic 67; PULSE 88–98; TEMP 36.3–36.7; O2SAT 91–95
[2024-09-25] MEDS: IPRATROPIUM/ALBUTEROL SULFATE 3 ML AMPUL.NEB IH (04:39)
[2024-09-25 06:05] LABS: Eosinophils Percent Auto 0.4 % (0.9-7.0); Hematocrit 29.3 % (36.0-48.0); Hemoglobin 9.3 g/dL (12.0-16.0); Immature Granulocytes Abs Auto 0.06 10^3/uL (0.00-0.03); Immature Granulocytes Pct Auto 0.8 % (0.0-0.5); Lymphocytes Absolute Auto 1.3 10^3/uL (1.2-3.8); Mean Corpuscular HGB Conc 31.7 g/dL (29.9-35.2); Mean Corpuscular Hemoglobin 31.4 pg (26.7-34.0); Mean Platelet Volume 12.1 fL (9.5-13.5); Monocytes Absolute Auto 0.7 10^3/uL (0.3-0.8); Monocytes Percent Auto 9.8 % (1.7-12.0); Neutrophils Absolute Auto 5.4 10^3/uL (1.4-6.5); Platelet Count 167 10^3/uL (150-450); Red Blood Count 2.96 10^6/uL (4.20-5.40); Red Cell Distribution Width 13.5 % (11.0-15.0); White Blood Count 7.5 10^3/uL (4.0-11.0)
--- NOTE | 2024-09-25 06:06 | P.DS_ITS ---
DS: Providers Provider Date of admission: 09/22/24 02:05 Primary care physician: Bill Sanderson MD Consults: 09/22/24 06:56 Consult to Pharmacy Routine Consulting Provider: Reason for consultation: Please Clayton me when Med Rec is Updated Has provider been notified: No Occupational Therapy Eval and Treat Routine Reason for consultation: Only if needed for Rehab Has provider been notified: No Physical Therapy Eval and Treat Routine Reason for consultation: Eval and Treat Has provider been notified: No DS: Diagnosis Discharge Diagnosis (1) Acute hypotension: (2) Recurrent syncope: (3) Acute renal failure (ARF): (4) Dehydration: (5) Iron deficiency anemia: (6) Emphysema lung: Qualifiers: Emphysema type: unspecified Qualified Code(s): J43.9 - Emphysema, unspecified (7) Hypertension: Qualifiers: Hypertension type: primary hypertension Qualified Code(s): I10 - Essential (primary) hypertension Plan Admission findings: Severe hypotension with systolic blood pressure in the 70s, leukocytosis, hyponatremia, acute renal failure-baseline creatinine 1.0 to, creatinine admission 4.39 which is 430.4% above baseline consistent with acute renal failure Acute renal failure as outlined above- U/S was fine - no obstruction - Creatinine better Hyperkalemia - one dose Lokelma History of hypertension-presented with hypotension, cont to be holding blood pressure medications currently COPD exacerbation-continue medications from previous admission Iron deficiency anemia-down somewhat today likely related to hydration Hyponatremia-labs pending Syncopal episode-likely related to blood pressure, monitor closely today, check orthostatic vitals, check CPK Generalized anxiety disorder continue with home medications Peripheral neuropathy continue with home medications Angina-continue with home medications Chest wall pain - Lidocaine patch Insomnia continue with home medications Admission status: Patient admitted with syncopal episode, hypotension, acute renal failure with creatinine 430.4% above baseline, IV fluids, medically necessary treatment will span 2 midnights. Inpatient status DS: Summary Hospital Course Hospital Course: Patient admitted after syncopal episode, significant orthostasis, given multiple fluid boluses held her blood pressure medications, also acute renal failure with a creatinine over 4 times baseline, and acute rhabdomyolysis, patient tolerated fluids up until the last day or so when she started having increasing BNP despite improving creatinine. Fluids were held, she will get 1 dose of Lasix today as her BNP is higher, blood pressure also up and so we will restart her beta-cathryn at a low dose, need to continue to monitor controlled medications, patient medically stable for rehab. Time Spent with Patient Time attestation: Total time spent providing and/or coordinating discharge services: Exam Constitutional Vital Signs, click to edit/add: Last Vital Signs Temp 97.4 F L 09/25/24 04:00 Pulse 98 H 09/25/24 05:56 Resp 18 09/25/24 04:41 BP 131/69 09/24/24 23:25 Pulse Ox 95 09/25/24 04:41 O2 Del Method Room Air 09/25/24 04:41 O2 Flow Rate 1 09/23/24 04:37 Documenting provider has reviewed patient's vital signs: yes Common normals: no apparent distress Respiratory Common normals: normal respiratory effort Cardio Common normals: regular rate, regular rhythm and no murmurs GI Common normals: Normal to inspection, nondistended, normoactive bowel sounds present, soft to palpation and no hepatosplenomegaly Extremity Common normals: abnormal to inspection (Trace edema) DS: Data Data Completed and Pending Labs on day of discharge: Labs from last 24 hours 09/24/24 05:56 WBC 10.0 RBC 3.09 L Hgb 9.7 L Hct 30.7 L MCV 99.4 H MCH 31.4 MCHC 31.6 RDW 13.6 Plt Count 161 MPV 12.5 Neut % (Auto) 79.8 H Lymph % (Auto) 9.6 L Walton % (Auto) 9.7 Eos % (Auto) 0.2 L Baso % (Auto) 0.1 L Neut # (Auto) 8.0 H Lymph # (Auto) 1.0 L Walton # (Auto) 1.0 H Eos # (Auto) 0.0 Baso # (Auto) 0.0 Abs Immat Gran (auto) 0.06 H Imm/Tot Granulo (auto) 0.6 H Sodium 144 Potassium 4.9 Chloride 112 H Carbon Dioxide 22.9 Anion Gap 14.0 BUN 47.0 H Creatinine 1.78 H Est GFR ( Amer) 34 L Est GFR (Non-Af Amer) 28 L BUN/Creatinine Ratio 26.4 Glucose 137 H Calcium 8.3 L Total Creatine Kinase 205 H CK-MB (CK-2) 4.45 H* Myoglobin 103 H Troponin I High Sens 9.0 NT-Pro-B Natriuret Pep 5309.0 H* Discharge Plan Discharge Disposition: Xfer SNF Discharge Medications: New gabapentin 400 mg Capsule 1,200 mg PO QHS Qty: 90 3RF tramadol 50 mg Tablet 50 mg PO Q8H PRN (Reason: Pain) Qty: 90 2RF gabapentin 300 mg Capsule 600 mg PO QAM Qty: 60 0RF levofloxacin 500 mg Tablet 500 mg PO Q48H Qty: 7 0RF hydroxyzine pamoate 25 mg capsule 25 mg PO Q4H PRN (Reason: anxiety) Qty: 90 0RF prednisone 10 mg tablet 40 mg PO DAILY Qty: 32 0RF Rx Instructions: 4/day for 3 days, 3/day for 3 days, 2/day for 3 days, 1/day for 3 days, 1/2 /day for 4 days metoprolol tartrate 25 mg tablet 25 mg PO BID Qty: 60 11RF Continued gabapentin 600 mg tablet 600 mg PO QAM methocarbamol 500 mg tablet 500 mg PO Q8H PRN (Reason: muscle pain) Qty: 10 0RF tramadol 50 mg tablet 50 mg PO Q8H PRN (Reason: pain) Qty: 14 0RF albuterol sulfate 90 mcg/actuation HFA aerosol inhaler 2 inh INHALATION Q6H PRN (Reason: shortness of breath or wheezing) cetirizine 10 mg tablet 10 mg PO DAILY gabapentin 600 mg tablet 1,200 mg PO .qhs metoclopramide HCl 10 mg tablet 10 mg PO .COMPLEX Rx Instructions: 10 mg orally before meals at at bedtime; pantoprazole 40 mg tablet,delayed release (DR/EC) 40 mg PO DAILY venlafaxine 150 mg capsule,extended release 24hr 150 mg PO DAILY venlafaxine 75 mg capsule,extended release 24hr 75 mg PO DAILY temazepam 30 mg capsule 30 mg PO QPM PRN (Reason: sleep) ondansetron 4 mg tablet,disintegrating 4 mg PO QID PRN (Reason: nausea and vomiting) montelukast 10 mg Tablet 10 mg PO QHS Qty: 30 11RF levofloxacin 750 mg Tablet 750 mg PO QD Qty: 10 0RF Patient Comments: 09/16/24-09/25/24 benzonatate 200 mg capsule 200 mg PO TID PRN (Reason: cough) Qty: 30 11RF Discontinued lisinopril 20 mg tablet 20 mg PO DAILY isosorbide mononitrate 60 mg tablet extended release 24 hr 60 mg PO .q24 metoprolol succinate 100 mg tablet extended release 24 hr 100 mg PO Q12H potassium chloride 10 mEq tablet,ER particles/crystals 10 meq PO BID diazepam 2 mg tablet 2 mg PO TID PRN (Reason: anxiety) prednisone 10 mg tablet 40 mg PO DAILY Qty: 32 0RF Rx Instructions: 4/day for 3 days, 3/day for 3 days, 2/day for 3 days, 1/day for 3 days, 1/2 /day for 4 days Print Language: [place] Yard Brakeman/Chief Information Security Officer Instructions: Discharged to [facility] skilled Forms: Portal Instructions
[2024-09-25 06:17] LABS: Anion Gap 14.2; BUN Creatinine Ratio 29.2; Calcium 8.4 mg/dL (8.5-10.1); Carbon Dioxide 23.1 mmol/L (21.0-32.0); Chloride 113 mmol/L (98-107); Estimated GFR (African America 47 (>=60 mL/min/1.73m^2); Estimated GFR (Non-African Ame 38 (>=60 mL/min/1.73m^2); Glucose 109 mg/dL (74-106); Potassium 4.3 mmol/L (3.5-5.1); Sodium 146 mmol/L (136-145)
[2024-09-25 06:36] LABS: Creatine Kinase 100 U/L (26-192); Creatine Kinase MB 2.57 ng/mL (<=3.60); Myoglobin 106 ng/mL (9-82); Troponin I High Sensitivity 13.3 pg/mL (4.0-51.3)
[2024-09-25] MEDS: FUROSEMIDE 40 MG/4 ML VIAL IVP (08:15)
[2024-09-25] MEDS: VENLAFAXINE HCL ER 150 MG CAPSULE PO (08:15)
[2024-09-25] MEDS: ENSURE ORIGINAL 237 ML BOTTLE PO (08:15)
[2024-09-25] MEDS: METOCLOPRAMIDE HCL 10 MG TABLET PO ×2 (08:15→10:44)
[2024-09-25] MEDS: METOPROLOL TARTRATE 25 MG TABLET PO (08:15)
[2024-09-25] MEDS: VENLAFAXINE HCL ER 75 MG CAPSULE PO (08:15)
[2024-09-25] MEDS: CETIRIZINE HCL 10 MG TABLET PO (08:15)
[2024-09-25] MEDS: GABAPENTIN 300 MG CAPSULE 600 MG PO (08:15)
[2024-09-25] MEDS: PANTOPRAZOLE SODIUM 40 MG TABLET.DR PO (08:15)
[2024-09-25] MEDS: LIDOCAINE 5% PATCH 1 PATCH TOPICAL (08:15)
[2024-09-25] MEDS: PREDNISONE 20 MG TABLET 40 MG PO (08:15)
--- NOTE | 2024-09-25 08:35 | CM.NOTE ---
Rounds made with Dr. Sanderson, pt will discharge to [facility] for skilled therapy today.
--- NOTE | 2024-09-25 08:51 | SWNOTE1 ---
Pt is ready for discharge today. Faxed d/c med rec to [facility].
--- NOTE | 2024-09-25 10:01 | SWNOTE1 ---
MICHAEL and SW student attempted to call [facility] several times to see if they have transport. Alphonso at [facility] emailed MICHAEL and they do not have transport available today.
--- NOTE | 2024-09-25 10:02 | SWNOTE1 ---
Called [facility] to set up transportation for d/c. [facility] can picker packer between 12-12:30. Pt's nurse and the [facility] were notified of picker packer time. HENS was completed online as well.
--- NOTE | 2024-09-25 11:15 | PC.NURSE ---
report given to [facility] at [facility]
[2024-09-26 12:08] LABS: Summary Report (Summary) FINAL (.)
--- NOTE | 2024-09-28 08:31 | PC.NURSE ---
Accountant Auditor reviewed Final Urine culture. Accountant Auditor gave the results to Dr. Oseguera for review. No new orders at this time.
== END 2024-09-25 12:04 | DRG 683 ==
LOC: ER 09-22 01:29 → MS 09-22 02:11
PROVIDERS: Admitting Provider Family Medicine; Emergency Provider Internal Medicine; PCP Family Medicine; Visit Provider Family Medicine
DX: N17.9 Acute kidney failure, unspecified (principal); E87.1 Hypo-osmolality and hyponatremia; M62.82 Rhabdomyolysis; E86.0 Dehydration; I95.9 Hypotension, unspecified; R55 Syncope and collapse; F32.A Depression, unspecified; Z87.440 Personal history of urinary (tract) infections; J43.9 Emphysema, unspecified; Z91.81 History of falling; K21.9 Gastro-esophageal reflux disease without esophagitis; J30.2 Other seasonal allergic rhinitis; I10 Essential (primary) hypertension; Z90.49 Acquired absence of other specified parts of digestive tract; Z90.710 Acquired absence of both cervix and uterus; Z96.643 Presence of artificial hip joint, bilateral; Z96.653 Presence of artificial knee joint, bilateral; F17.210 Nicotine dependence, cigarettes, uncomplicated; Z79.899 Other long term (current) drug therapy; E66.9 Obesity, unspecified; D50.9 Iron deficiency anemia, unspecified; F41.1 Generalized anxiety disorder; G62.9 Polyneuropathy, unspecified; I25.119 Atherosclerotic heart disease of native coronary artery with unspecified angina pectoris; G47.00 Insomnia, unspecified; R07.81 Pleurodynia; E87.5 Hyperkalemia; E27.9 Disorder of adrenal gland, unspecified; R07.89 Other chest pain; Z68.32 Body mass index [BMI] 32.0-32.9, adult
CPT/HCPCS: 36410; 36415; 36592; 51798; 71045; 71046; 74176; 76770; 80048; 80053; 80307; 80326; 80331; 80334; 80337; 80338; 80341; 80344; 80347; 80348; 80353; 80354; 80355; 80357; 80358; 80359; 80360; 80361; 80364; 80365; 80366; 80367; 80368; 80370; 80371; 80372; 80373; 80377; 81001; 82550; 82553; 82570; 83605; 83735; 83874; 83880; 83992; 84484; 85007; 85025; 85027; 87086; 93005; 94640; 94667; 94668; 94761; 96361; 96374; 97161; 97165; 97530; 97535; 99285; C1887; J1938; J3010; J7512

== ENCOUNTER 2024-11-20 13:11 | Outpatient (OUT) | payer MEDICARE, OTHER, SELFPAY ==
--- OUTSIDE RECORDS SUMMARY | 2024-11-20 13:35 | XMS_ITS | CCD ---
Author Organization [facility] Care Team Providers Care Police Investigator Name Role Phone CALOS SMITH JR. Referring [...] Unavailable HOY, LEVI Primary Care Unavailable MIL GARZA~[id number], [place] SEA GARZA~[phone] MIL Referring Unavailable HOY, LEVI Primary Care Unavailable EMMEL, BRITTANY Referring Unavailable HOY, LEVI Primary Care Unavailable VENKATAREDWIGEN Referring Unavailable EMMEL, BRITTANY Attending Unavailable HOY, LEVI Primary Care Unavailable EMMEL, BRITTANY Attending Unavailable HOY, LEVI Primary Care Unavailable EMMEL, BRITTANY Referring Unavailable NINA, BRITTANY Attending Unavailable HOY, LEVI Primary Care Unavailable EMMEL, BRITTANY Referring Unavailable EMMEL, BRITTANY Attending Unavailable HOY, LEVI Primary Care Unavailable EMMEL, BRITTANY Referring Unavailable HOY, LEVI Primary Care Unavailable AISHA CAST Referring Unavailable HOY, LEVI Primary Care Unavailable LUIS, CALOS Admitting Unavailable LUIS, CALOS Attending Unavailable [facility], [facility] Unavailable Kimani Reyes Attending Unavailable Kimani Reyes Admitting Unavailable Hoy, Levi M Admitting Unavailable Rl, Levi M Attending Unavailable Allergies Allergy Classification Reported Allergen(s) Allergy Type Date of Onset Reaction(s) Facility (5 sources) ceFAZolin; Translations: [CEFAZOLIN] Drug Allergy 1 Anaphylaxis [facility] (5 sources) Morphine; Translations: [MORPHINE] Drug Allergy 1 Hives, Itching [facility] (8 sources) NSAIDs; Translations: [NSAIDS (NON-STEROIDAL ANTI-INFLAMMATOR Y DRUG)] Drug Allergy 3 Anaphylaxis [facility] (5 sources) Vancomycin; Translations: [VANCOMYCIN] Drug Allergy 1 Other [facility] (1 source) Aspirin Drug Allergy [address] [facility] (3 sources) ceFAZolin Drug Allergy [address] [facility] (1 source) Morphine Drug Allergy [address] [facility] (2 sources) Morphine Drug Allergy 3 [facility] (2 sources) Vancomycin Drug Allergy [facility] Medications Current Medications Medication Drug [...] (5 sources) Opioid Agonist Start: 3 End: take 50-100 mg by mouth every six [...] sources) Cholinergic Muscarinic Agonist Start: 04-20-2022 End: 01-21-2023 bethanechol (URECHOLINE) tablet 25 mg Start: 01-03-2022 [...] 20 mg/ml oral solution (2 sources) Uncompetitive Y-mjcmzx-S-aspartate Receptor Antagonist, Sigma-1 Agonist End: 12-29-2021 take [...] at 09[address] take [address] [facility] at bedtime gabapentin (NEURONTIN) 600 [...] mg, oral, Daily, Fir st dose on 10/5/22 at 0900 Do not crush or chew. [...] arin th every six hours as needed oxyCODONE (ROXICODONE) [...] Oxygen Therapy , Adult polyethylene glycol 3350 76047 mg powder for oral solution (6 sources) [...] immediately). take [address] 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 Normal [facility] Comment on above: Performed By: #### C UU #### [address] Urine Cultureon 09-13-2024 Bacteria identified Cx Nom (U) ORGANISM: Escherichia coli (O:ESCCOL) Waldron Count >100,000 Aerobic YUDY Charge (NMIC56) ---- [...] RESISTANT TO ALL B-LACTAM DRUGS. PERFORMED BY: [place] [address] PATHOLOGIST DRAGGER OUT KENZIE NICOLE M.D. Normal [facility] Comment on above: Performed By: #### C UU #### [address] CRP [Mass/Vol]on 02-19-2023 C-Reactive Protein 1.0 mg/dL Normal 0.0-1.0 [facility] Comment on above: Performed By: #### 1 988-5 #### [facility] [address] [place] [address] ESR (Bld) [Velocity]on 02-19 Basophils (Bld) [#/Vol] 0.09 10*3/uL Normal 0.00-0.20 [facility] Comment on above: Performed By: #### 5 75-1 #### [facility] [place] [facility] [address] [place] [address] Basophils/100 WBC (Bld) 1.1 % Normal 0.0-2.0 [facility] Comment on above: Performed By: #### 5 75-1 #### [facility] [place] [facility] [address] [place] [address] Eosinophils (Bld) [#/Vol] 0.17 10*3/uL Normal 0.00-0.70 [facility] Comment on above: Performed By: #### 75-1 #### [facility] [place] [facility] [address] [place] [address] Eosinophils/100 WBC (Bld) 2.0 % Normal 0.0-7.0 [facility] Comment on above: Performed By: #### 75-1 #### [facility] [address] [place] [address] Erythrocyte distribution width (RBC) [Ratio] 13.5 % Normal 11.0-14.8 [facility] Comment on above: Performed By: #### 75-1 #### [facility] ([facility] [address] [place] [address] Hematocrit (Bld) [Volume fraction] 39.9 % Normal 34.3-47.9 [facility] Comment on above: Performed By: #### 5 75-1 #### [facility] [place] [facility] [address] [place] [address] Hemoglobin (Bld) [Mass/Vol] 12.7 g/dL Normal 12.0-16.0 [facility] Comment on above: Performed By: #### 5 75-1 #### [facility] [place] [facility] [address] [place] [address] Immature granulocytes (Bld) [#/Vol] 0.02 10*3/uL Normal 0.00-0.10 [facility] Comment on above: Performed By: #### 5 75-1 #### [facility] [place] [facility] [address] [place] [address] Immature granulocytes/100 WBC (Bld) 0.2 % Normal 0.0-1.2 [facility] Comment on above: Performed By: #### 5 75-1 #### [facility] [place] [facility] [address] [place] [address] Lymphocytes (Bld) [#/Vol] 2.55 10*3/uL Normal 1.00-4.80 [facility] Comment on above: Performed By: #### 5 75-1 #### [facility] [place] [facility] [address] [place] [address] Lymphocytes/100 WBC (Bld) 30.6 % Normal 17.9-49.6 [facility] Comment on above: Performed By: #### 5 75-1 #### [facility] [place] [facility] [address] [place] [address] MCH 31.4 pcg Normal 27.0-34.0 [facility] Comment on above: Performed By: #### 5 75-1 #### [facility] [place] [address] [place] [address] MCHC (RBC) [Mass/Vol] 31.8 g/dL Normal 30.8-35.3 [facility] Comment on above: Performed By: #### 5 75-1 #### [facility] [place] [address] [place] [address] MCV (RBC) [Entitic vol] 98.5 fL High 80.0-97.0 [facility] Comment on above: Performed By: #### 5 75-1 #### [facility] [place] [facility] [address] [place] [address] Monocytes (Bld) [#/Vol] 0.57 10*3/uL Normal 0.00-0.90 [facility] Comment on above: Performed By: #### 5 75-1 #### [facility] [place] [facility] [address] [place] [address] Monocytes/100 WBC (Bld) 6.9 % Normal 0.0-12.0 [facility] Comment on above: Performed By: #### 5 75-1 #### [facility] [place] [facility] [address] [place] [address] Neutrophils Absolute 4.92 K/mcL Normal 1.80-7.70 [facility] Comment on above: Performed By: #### 5 75-1 #### [facility] [place] [facility] [address] [place] [address] Neutrophils/100 WBC (Bld) 59.2 % Normal 38.1-75.5 [facility] Comment on above: Performed By: #### 5 75-1 #### [facility] [place] [facility] [address] [place] [address] Platelet mean volume (Bld) [Entitic vol] 11.5 fL Normal 6.2-12.1 [facility] Comment on above: Performed By: #### 5 75-1 #### [facility] [place] [facility] [address] [place] [address] Platelets (Bld) [#/Vol] 262 10*3/uL Normal 142-424 [facility] Comment on above: Performed By: #### 5 75-1 #### [facility] [place] [facility] [address] [place] [address] RBC (Bld) [#/Vol] 4.05 10*6/uL Normal 3.74-5.34 [facility] Comment on above: Performed By: #### 5 75-1 #### [facility] [place] [facility] [address] [place] [address] WBC (Bld) [#/Vol] 8.3 10*3/uL Normal 4.6-10.2 [facility] Comment on above: Performed By: #### 5 75-1 #### [facility] [place] [facility] [address] [place] [address] CBC AUTO DIFFon 08-30-2022 BASO # 0.1 103/ul Normal 0.0-0.1 [facility] Comment on above: Performed By: #### C BC #### [facility] [address] [address] [address] Jeffrey Thomas Basophils/100 WBC (Bld) 0.9 % Normal 0.2-2.0 [facility] Comment on above: Performed By: #### C BC #### [facility] [address] [place] [address] Dr. Jeffrey Thomas EO # 0.2 103/ul Normal 0.0-0.7 [facility] Comment on above: Performed By: #### C BC #### [facility] [address] [place] [address] Dr. Jeffrey Thomas Eosinophils/100 WBC (Bld) 3.9 % Normal 0.9-7.0 [facility] Comment on above: Performed By: #### C BC #### [facility] [address] [place] [address] Dr. Jeffrey Thomas Erythrocyte distribution width (RBC) [Ratio] 14.6 % Normal 11.0-15.0 [facility] Comment on above: Performed By: #### C BC #### [facility] [address] [place] [address] Dr. Jeffrey Thomas Hematocrit (Bld) [Volume fraction] 32.7 % Critically low 36.0-48.0 [facility] Comment on above: Performed By: #### C BC #### [facility] [address] [place] [address] Dr. Jeffrey Thomas Hemoglobin (Bld) [Mass/Vol] 10.3 g/dL Critically low 12.0-16.0 [facility] Comment on above: Performed By: #### C BC #### [facility] [address] [place] [address] Dr. Jeffrey Thomas IG # 0.01 10e3/ul Normal 0.00-0.03 [facility] Comment on above: Performed By: #### C BC #### [facility] [address] [place] [address] Dr. Jeffrey Thomas IG % 0.2 % Normal 0.0-0.5 [facility] Comment on above: Performed By: #### C BC #### [facility] [address] [place] [address] Dr. Jeffrey Thomas LYMPH # 1.7 103/ul Normal 1.2-3.8 [facility] Comment on above: Performed By: #### C BC #### [facility] [address] [place] [address] Dr. Jeffrey Thomas Lymphocytes/100 WBC (Bld) 30.8 % Normal 20.5-60.0 [facility] Comment on above: Performed By: #### C BC #### [facility] [address] [place] [address] Dr. Jeffrey Thmoas MANUAL DIFF REQ NO Normal [facility] Comment on above: Performed By: #### C BC #### [facility] [address] [place] [address] Dr. Jeffrey Thomas MCH (RBC) [Entitic mass] 30.2 pg Normal 26.7-34.0 [facility] Comment on above: Performed By: #### C BC #### [facility] [address] [place] [address] Dr. Jeffrey Thomas MCHC (RBC) [Mass/Vol] 31.5 g/dL Normal 29.9-35.2 [facility] Comment on above: Performed By: #### C BC #### [facility] [address] [place] [address] Dr. Jeffrey Thomas MCV (RBC) [Entitic vol] 95.9 fL Normal 81.0-99.0 [facility] Comment on above: Performed By: #### C BC #### [facility] [address] [place] [address] Dr. Jeffrey Thomas MONO # 0.4 103/ul Normal 0.3-0.8 [facility] Comment on above: Performed By: #### C BC #### [facility] [address] [place] [address] Dr. Jeffrey Thomas Monocytes/100 WBC (Bld) 7.8 % Normal 1.7-12.0 [facility] Comment on above: Performed By: #### C BC #### [facility] [address] [place] [address] Dr. Jeffrey Thomas NEUT # 3.2 103/ul Normal 1.4-6.5 [facility] Comment on above: Performed By: #### C BC #### [facility] [address] [place] [address] Dr. Jeffrey Thomas Neutrophils/100 WBC (Bld) 56.4 % Normal 43.0-75.0 [facility] Comment on above: Performed By: #### C BC #### [facility] [address] [place] [address] Dr. Jeffrey Thomas Platelet mean volume (Bld) [Entitic vol] 12.9 fL Normal 9.5-13.5 [facility] Comment on above: Performed By: #### C BC #### [facility] [address] [place] [address] Dr. Jeffrey Thomas PLT 149 103/ul Critically low 150-450 [facility] Comment on above: Performed By: #### C BC #### [facility] [address] [place] [address] Dr. Jeffrey Thomas RBC 3.41 106/ul Critically low 4.20-5.40 [facility] Comment on above: Performed By: #### C BC #### [facility] [address] [place] [address] Dr. Jeffrey Thomas WBC 5.6 103/ul Normal 4.0-11.0 [facility] Comment on above: Performed By: #### C BC #### [facility] [address] [place] [address] Dr. Jeffrey Thomas [facility] Normal Negative [facility] Comment on above: Performed By: #### C MP #### [facility] [address] [place] [address] Dr. Jeffrey Thomas HCV AB Non-Reactive Normal Non Reactive [facility] Comment on above: Performed By: #### C MP #### [facility] [address] [place], [place] [address] Dr. Jeffrey Thomas Hep A Ab, IgM Negative Normal Negative [facility] Comment on above: Performed By: #### C MP #### [facility] [address] [place], [place] [address] Dr. Jeffrey Thomas Hep B Core Ab, IgM Negative Normal Negative [facility] Comment on above: Performed By: #### C MP #### [facility] [address] [place], [place] [address] Dr. Jeffrey Thomas NM HEPATOBILIARY SCAN W [...] GARO CASILLAS Date: 2022-08-30 07:23 Normal [facility] PROF 14(COMP METB)on 023 Albumin [Mass/Vol] 2.5 g/dL Critically low 3.4-5.0 Th [facility] Comment on above: Performed By: #### T 4LC #### [facility] [address] [place] [address] Dr. Jeffrey Thomas Albumin/Globulin [Mass ratio] 0.9 {ratio} Normal [facility] Comment on above: Performed By: #### T 4LC #### [facility] [address] [address] [address] Jeffrey Thomas ALP [Catalytic activity/Vol] 97 U/L Normal 46-116 [facility] Comment on above: Performed By: #### T 4LC #### [facility] [address] [place] [address] Dr. Jeffrey Thomas ALT [Catalytic activity/Vol] 39 U/L Normal 14-59 [facility] Comment on above: Performed By: #### T 4LC #### [facility] [address] [place] [address] Dr. Jeffrey Thomas Anion gap [Moles/Vol] 12.9 mmol/L Normal Th [facility] Comment on above: Performed By: #### T 4LC #### [facility] [address] [place] [address] Dr. Jeffrey Thomas AST [Catalytic activity/Vol] 19 U/L Normal 15-37 [facility] Comment on above: Performed By: #### T 4LC #### [facility] [address] [place] [address] Dr. Jeffrey Thomas Bilirubin [Mass/Vol] 0.2 mg/dL Normal 0.2-1.0 [facility] Comment on above: Performed By: #### T 4LC #### [facility] [address] [place] [address] Dr. Jeffrey Thomas Calcium [Mass/Vol] 8.2 mg/dL Critically low 8.5-10.1 [facility] Comment on above: Performed By: #### T 4LC #### [facility] [address] [place] [address] Dr. Jeffrey Thomas Chloride [Moles/Vol] 111 mmol/L Critically high 98-107 [facility] Comment on above: Performed By: #### T 4LC #### [facility] [address] [place] [address] Dr. Jeffrey Thomas CO2 [Moles/Vol] 24.2 mmol/L Normal 21.0-32.0 [facility] Comment on above: Performed By: #### T 4LC #### [facility] [address] [place] [address] Dr. Jeffrey Thomas Creatinine [Mass/Vol] 1.05 mg/dL Critically high 0.55-1.02 [facility] Comment on above: Performed By: #### T 4LC #### [facility] [address] [address] [address] Jeffrey Thomas EGFR-AF [place] >60 Normal >=60 [facility] Comment on above: Performed By: #### T 4LC #### [facility] [address] [address] [address] Jeffrey Thomas EGFR-NON AF [place] 53 mL/min/1.73m2 Critically low >=60 [facility] Comment on above: Performed By: #### T 4LC #### [facility] [address] [address] [address] Jeffrey Thomas Globulin (S) [Mass/Vol] 2.7 g/dL Normal [facility] Comment on above: Performed By: #### T 4LC #### [facility] [address] [place] [address] Dr. Jeffrey Thomas Glucose [Mass/Vol] 109 mg/dL Critically high 74-106 [facility] Comment on above: Performed By: #### T 4LC #### [facility] [address] [address] [address] Jeffrey Thomas Potassium [Moles/Vol] 4.1 mmol/L Normal 3.5-5.1 [facility] Comment on above: Performed By: #### T 4LC #### [facility] [address] [address] [address] Jeffrey Thomas Protein [Mass/Vol] 5.2 g/dL Critically low 6.4-8.2 Th [facility] Comment on above: Performed By: #### T 4LC #### [facility] [address] [address] [address] Jeffrey Thomas Sodium [Moles/Vol] 144 mmol/L Normal 136-145 [facility] Comment on above: Performed By: #### T 4LC #### [facility] [address] [address] [address] Jeffrey Thomas Urea nitrogen [Mass/Vol] 11.0 mg/dL Normal 7.0-18.0 [facility] Comment on above: Performed By: #### T 4LC #### [facility] [address] [place] [address] Dr. Jeffrey Thomas Urea nitrogen/Creatinine [Mass ratio] 10.5 mg/mg Normal [facility] Comment on above: Performed By: #### T 4LC #### [facility] [address] [place] [address] Dr. Jefrfey Thomas CBC AUTO DIFFon 08-29-2022 BASO # 0.1 103/ul Normal 0.0-0.1 [facility] Comment on above: Performed By: #### T 4LC #### [facility] [address] [place] [address] Dr. Jeffrey Thomas Basophils/100 WBC (Bld) 1.2 % Normal 0.2-2.0 [facility] Comment on above: Performed By: #### T 4LC #### [facility] [address] [place] [address] Dr. Jeffrey Thomas EO # 0.2 103/ul Normal 0.0-0.7 [facility] Comment on above: Performed By: #### T 4LC #### [facility] [address] [place] [address] Dr. Jeffrey Thomas Eosinophils/100 WBC (Bld) 4.1 % Normal 0.9-7.0 [facility] Comment on above: Performed By: #### T 4LC #### [facility] [address] [place] [address] Dr. Jeffrey Thomas Erythrocyte distribution width (RBC) [Ratio] 14.6 % Normal 11.0-15.0 [facility] Comment on above: Performed By: #### T 4LC #### [facility] [address] [place] [address] Dr. Jeffrey Thomas Hematocrit (Bld) [Volume fraction] 33.6 % Critically low 36.0-48.0 [facility] Comment on above: Performed By: #### T 4LC #### [facility] [address] [place] [address] Dr. Jeffrey Thomas Hemoglobin (Bld) [Mass/Vol] 10.3 g/dL Critically low 12.0-16.0 [facility] Comment on above: Performed By: #### T 4LC #### [facility] [address] [place] [address] Dr. Jeffrey Thomas IG # 0.01 10e3/ul Normal 0.00-0.03 [facility] Comment on above: Performed By: #### T 4LC #### [facility] [address] [place] [address] Dr. Jeffrey Thomas IG % 0.2 % Normal 0.0-0.5 [facility] Comment on above: Performed By: #### T 4LC #### [facility] [address] [place] [address] Dr. Jeffrey Thomas LYMPH # 1.7 103/ul Normal 1.2-3.8 [facility] Comment on above: Performed By: #### T 4LC #### [facility] [address] [place] [address] Dr. Jeffrey Thomas Lymphocytes/100 WBC (Bld) 34.4 % Normal 20.5-60.0 [facility] Comment on above: Performed By: #### T 4LC #### [facility] [address] [place] [address] Dr. Jeffrey Thomas MANUAL DIFF REQ NO Normal [facility] Comment on above: Performed By: #### T 4LC #### [facility] [address] [place] [address] Dr. Jeffrey Thomas MCH (RBC) [Entitic mass] 29.5 pg Normal 26.7-34.0 [facility] Comment on above: Performed By: #### T 4LC #### [facility] [address] [place] [address] Dr. Jeffrey Thomas MCHC (RBC) [Mass/Vol] 30.7 g/dL Normal 29.9-35.2 [facility] Comment on above: Performed By: #### T 4LC #### [facility] [address] [place] [address] Dr. Jeffrey Thomas MCV (RBC) [Entitic vol] 96.3 fL Normal 81.0-99.0 [facility] Comment on above: Performed By: #### T 4LC #### [facility] [address] [place] [address] Dr. Jeffrey Thomas MONO # 0.4 103/ul Normal 0.3-0.8 [facility] Comment on above: Performed By: #### T 4LC #### [facility] [address] [place] [address] Dr. Jefrfey Thomas Monocytes/100 WBC (Bld) 8.2 % Normal 1.7-12.0 [facility] Comment on above: Performed By: #### T 4LC #### [facility] [address] [place] [address] Dr. Jeffrey Thomas NEUT # 2.5 103/ul Normal 1.4-6.5 [facility] Comment on above: Performed By: #### T 4LC #### [facility] [address] [place] [address] Dr. Jeffrey Thomas Neutrophils/100 WBC (Bld) 51.9 % Normal 43.0-75.0 [facility] Comment on above: Performed By: #### T 4LC #### [facility] [address] [place] [address] Dr. Jeffrey Thomas Platelet mean volume (Bld) [Entitic vol] 12.5 fL Normal 9.5-13.5 [facility] Comment on above: Performed By: #### T 4LC #### [facility] [address] [place] [address] Dr. Jeffrey Thomas PLT 157 103/ul Normal 150-450 [facility] Comment on above: Performed By: #### T 4LC #### [facility] [address] [place] [address] Dr. Jeffrey Thomas RBC 3.49 106/ul Critically low 4.20-5.40 [facility] Comment on above: Performed By: #### T 4LC #### [facility] [address] [place] [address] Dr. Jeffrey Thomas WBC 4.9 103/ul Normal 4.0-11.0 [facility] Comment on above: Performed By: #### T 4LC #### [facility] [address] [place] [address] Dr. Jeffrey Thomas PROF 14(COMP METB)on 023 Albumin [Mass/Vol] 2.6 g/dL Critically low 3.4-5.0 [facility] Comment on above: Performed By: #### C MP #### [facility] [address] [place] [address] Dr. Jeffrey Thomas Albumin/Globulin [Mass ratio] 1.0 {ratio} Normal [facility] Comment on above: Performed By: #### C MP #### [facility] [address] [place] [address] Dr. Jeffrey Thomas ALP [Catalytic activity/Vol] 94 U/L Normal 46-116 [facility] Comment on above: Performed By: #### C MP #### [facility] [address] [place] [address] Dr. Jeffrey Thomas ALT [Catalytic activity/Vol] 53 U/L Normal 14-59 [facility] Comment on above: Performed By: #### C MP #### [facility] [address] [place] [address] Dr. Jeffrey Thomas Anion gap [Moles/Vol] 11.2 mmol/L Normal Th [facility] Comment on above: Performed By: #### C MP #### [facility] [address] [place] [address] Dr. Jeffrey Thomas AST [Catalytic activity/Vol] 26 U/L Normal 15-37 [facility] Comment on above: Performed By: #### C MP #### [facility] [address] [place] [address] Dr. Jeffrey Thomas Bilirubin [Mass/Vol] 0.2 mg/dL Normal 0.2-1.0 [facility] Comment on above: Performed By: #### C MP #### [facility] [address] [place] [address] Dr. Jeffrey Thomas Calcium [Mass/Vol] 8.2 mg/dL Critically low 8.5-10.1 Th [facility] Comment on above: Performed By: #### C MP #### [facility] [address] [address] [address] Jeffrey Thomas Chloride [Moles/Vol] 114 mmol/L Critically high 98-107 [facility] Comment on above: Performed By: #### C MP #### [facility] [address] [address] [address] Jeffrey Thomas CO2 [Moles/Vol] 23.1 mmol/L Normal 21.0-32.0 [facility] Comment on above: Performed By: #### C MP #### [facility] [address] [address] [address] Jeffrey Thomas Creatinine [Mass/Vol] 0.95 mg/dL Normal 0.55-1.02 [facility] Comment on above: Performed By: #### C MP #### [facility] [address] [address] [address] Jeffrey Thomas EGFR-AF [place] >60 Normal >=60 [facility] Comment on above: Performed By: #### C MP #### [facility] [address] [address] [address] Jeffrey Thomas EGFR-NON AF [place] 59 mL/min/1.73m2 Critically low >=60 [facility] Comment on above: Performed By: #### C MP #### [facility] [address] [address] [address] Jeffrey Thomas Globulin (S) [Mass/Vol] 2.6 g/dL Normal [facility] Comment on above: Performed By: #### C MP #### [facility] [address] [address] [address] Jeffrey Thomas Glucose [Mass/Vol] 87 mg/dL Normal 74-106 [facility] Comment on above: Performed By: #### C MP #### [facility] [address] [address] [address] Jeffrey Thomas Potassium [Moles/Vol] 4.3 mmol/L Normal 3.5-5.1 [facility] Comment on above: Performed By: #### C MP #### [facility] [address] [address] [address] Jeffrey Thomas Protein [Mass/Vol] 5.2 g/dL Critically low 6.4-8.2 [facility] Comment on above: Performed By: #### C MP #### [facility] [address] [place] [address] Dr. Jeffrey Thomas Sodium [Moles/Vol] 144 mmol/L Normal 136-145 [facility] Comment on above: Performed By: #### C MP #### [facility] [address] [place] [address] Dr. Jeffrey Thomas Urea nitrogen [Mass/Vol] 10.0 mg/dL Normal 7.0-18.0 [facility] Comment on above: Performed By: #### C MP #### [facility] [address] [place] [address] Dr. Jeffrey Thomas Urea nitrogen/Creatinine [Mass ratio] 10.5 mg/mg Normal [facility] Comment on above: Performed By: #### C MP #### [facility] [address] [place] [address] Dr. Jeffrey Thomas CBC AUTO DIFFon 08-28-2022 BASO # 0.1 103/ul Normal 0.0-0.1 [facility] Comment on above: Performed By: #### T 4LC #### [facility] [address] [place] [address] Dr. Jeffrey Thomas Basophils/100 WBC (Bld) 1.2 % Normal 0.2-2.0 [facility] Comment on above: Performed By: #### T 4LC #### [facility] [address] [place] [address] Dr. Jeffrey Thomas EO # 0.3 103/ul Normal 0.0-0.7 [facility] Comment on above: Performed By: #### T 4LC #### [facility] [address] [place] [address] Dr. Jeffrey Thomas Eosinophils/100 WBC (Bld) 4.4 % Normal 0.9-7.0 [facility] Comment on above: Performed By: #### T 4LC #### [facility] [address] [place] [address] Dr. Jeffrey Thomas Erythrocyte distribution width (RBC) [Ratio] 14.8 % Normal 11.0-15.0 [facility] Comment on above: Performed By: #### T 4LC #### [facility] [address] [place] [address] Dr. Jeffrey Thomas Hematocrit (Bld) [Volume fraction] 33.5 % Critically low 36.0-48.0 [facility] Comment on above: Performed By: #### T 4LC #### [facility] [address] [place] [address] Dr. Jeffrey Thomas Hemoglobin (Bld) [Mass/Vol] 10.1 g/dL Critically low 12.0-16.0 [facility] Comment on above: Performed By: #### T 4LC #### [facility] [address] [place] [address] Dr. Jeffrey Thomas IG # 0.01 10e3/ul Normal 0.00-0.03 [facility] Comment on above: Performed By: #### 4LC #### [facility] [address] [place] [address] Dr. Jeffrey Thomas IG % 0.2 % Normal 0.0-0.5 [facility] Comment on above: Performed By: #### 4LC #### [facility] [address] [place] [address] Dr. Jeffrey Thomas LYMPH # 2.1 103/ul Normal 1.2-3.8 [facility] Comment on above: Performed By: #### 4LC #### [facility] [address] [place] [address] Dr. Jeffrey Thomas Lymphocytes/100 WBC (Bld) 35.1 % Normal 20.5-60.0 [facility] Comment on above: Performed By: #### T 4LC #### [facility] [address] [place] [address] Dr. Jeffrey Thomas MANUAL DIFF REQ NO Normal [facility] Comment on above: Performed By: #### T 4LC #### [facility] [address] [place] [address] Dr. Jeffrey Thomas MCH (RBC) [Entitic mass] 29.6 pg Normal 26.7-34.0 [facility] Comment on above: Performed By: #### T 4LC #### [facility] [address] [place] [address] Dr. Jeffrey Thomas MCHC (RBC) [Mass/Vol] 30.1 g/dL Normal 29.9-35.2 [facility] Comment on above: Performed By: #### T 4LC #### [facility] [address] [place] [address] Dr. Jeffrey Thomas MCV (RBC) [Entitic vol] 98.2 fL Normal 81.0-99.0 [facility] Comment on above: Performed By: #### T 4LC #### [facility] [address] [place] [address] Dr. Jeffrey Thomas MONO # 0.5 103/ul Normal 0.3-0.8 [facility] Comment on above: Performed By: #### T 4LC #### [facility] [address] [place] [address] Dr. Jeffrey Thomas Monocytes/100 WBC (Bld) 7.7 % Normal 1.7-12.0 [facility] Comment on above: Performed By: #### T 4LC #### [facility] [address] [place] [address] Dr. Jeffrey Thomas NEUT # 3.1 103/ul Normal 1.4-6.5 [facility] Comment on above: Performed By: #### T 4LC #### [facility] [address] [place] [address] Dr. Jeffrey Thomas Neutrophils/100 WBC (Bld) 51.4 % Normal 43.0-75.0 [facility] Comment on above: Performed By: #### T 4LC #### [facility] [address] [place] [address] Dr. Jeffrey Thomas Platelet mean volume (Bld) [Entitic vol] 12.1 fL Normal 9.5-13.5 [facility] Comment on above: Performed By: #### T 4LC #### [facility] [address] [address] [address] Jeffrey Thomas PLT 180 103/ul Normal 150-450 [facility] Comment on above: Performed By: #### T 4LC #### [facility] [address] [address] [address] Jeffrey Thomas RBC 3.41 106/ul Critically low 4.20-5.40 [facility] Comment on above: Performed By: #### T 4LC #### [facility] [address] [address] [address] Jeffrey Thomas WBC 6.0 103/ul Normal 4.0-11.0 [facility] Comment on above: Performed By: #### T 4LC #### [facility] [address] [place] [address] Dr. Jeffrey Thomas PROF 14(COMP METB)on 023 Albumin [Mass/Vol] 2.8 g/dL Critically low 3.4-5.0 [facility] Comment on above: Performed By: #### C MP #### [facility] [address] [place] [address] Dr. Jeffrey Thomas Albumin/Globulin [Mass ratio] 1.1 {ratio} Normal [facility] Comment on above: Performed By: #### C MP #### [facility] [address] [place] [address] Dr. Jeffrey Thomas ALP [Catalytic activity/Vol] 96 U/L Normal 46-116 [facility] Comment on above: Performed By: #### C MP #### [facility] [address] [place] [address] Dr. Jeffrey Thomas ALT [Catalytic activity/Vol] 72 U/L Critically high 14-59 [facility] Comment on above: Performed By: #### C MP #### [facility] [address] [place] [address] Dr. Jeffrey Thomas Anion gap [Moles/Vol] 12.8 mmol/L Normal [facility] Comment on above: Performed By: #### C MP #### [facility] [address] [address] [address] Jeffrey Thomas AST [Catalytic activity/Vol] 39 U/L Critically high 15-37 [facility] Comment on above: Performed By: #### C MP #### [facility] [address] [address] [address] Jeffrey Thomas Bilirubin [Mass/Vol] 0.2 mg/dL Normal 0.2-1.0 [facility] Comment on above: Performed By: #### C MP #### [facility] [address] [address] [address] Jeffrey Thomas Calcium [Mass/Vol] 7.8 mg/dL Critically low 8.5-10.1 Th [facility] Comment on above: Performed By: #### C MP #### [facility] [address] [address] [address] Jeffrey Thomas Chloride [Moles/Vol] 115 mmol/L Critically high 98-107 [facility] Comment on above: Performed By: #### C MP #### [facility] [address] [address] [address] Jeffrey Thomas CO2 [Moles/Vol] 20.4 mmol/L Critically low 21.0-32.0 [facility] Comment on above: Performed By: #### C MP #### [facility] [address] [address] [address] Jeffrey Thomas Creatinine [Mass/Vol] 0.98 mg/dL Normal 0.55-1.02 [facility] Comment on above: Performed By: #### C MP #### [facility] [address] [address] [address] Jeffrey Thomas EGFR-AF [place] >60 Normal >=60 [facility] Comment on above: Performed By: #### C MP #### [facility] [address] [address] [address] Jeffrey Thomas EGFR-NON AF [place] 57 mL/min/1.73m2 Critically low >=60 [facility] Comment on above: Performed By: #### C MP #### [facility] [address] [address] [address] Jeffrey Thomas Globulin (S) [Mass/Vol] 2.6 g/dL Normal [facility] Comment on above: Performed By: #### C MP #### [facility] [address] [place] [address] Dr. Jeffrey Thomas Glucose [Mass/Vol] 80 mg/dL Normal 74-106 [facility] Comment on above: Performed By: #### C MP #### [facility] [address] [address] [address] Jeffrey Thomas Potassium [Moles/Vol] 4.2 mmol/L Normal 3.5-5.1 [facility] Comment on above: Performed By: #### C MP #### [facility] [address] [place] [address] Dr. Jeffrey Thomas Protein [Mass/Vol] 5.4 g/dL Critically low 6.4-8.2 Th [facility] Comment on above: Performed By: #### C MP #### [facility] [address] [place] [address] Dr. Jeffrey Thomas Sodium [Moles/Vol] 144 mmol/L Normal 136-145 [facility] Comment on above: Performed By: #### C MP #### [facility] [address] [place] [address] Dr. Jeffrey Thomas Urea nitrogen [Mass/Vol] 10.0 mg/dL Normal 7.0-18.0 [facility] Comment on above: Performed By: #### C MP #### [facility] [address] [place] [address] Dr. Jeffrey Thomas Urea nitrogen/Creatinine [Mass ratio] 10.2 mg/mg Normal [facility] Comment on above: Performed By: #### C MP #### [facility] [address] [place] [address] Dr. Jeffrey Thomas CBC AUTO DIFFon 08-27-2022 BASO # 0.1 103/ul Normal 0.0-0.1 [facility] Comment on above: Performed By: #### C MP #### [facility] [address] [address] [address] Jeffrey Thomas Basophils/100 WBC (Bld) 1.2 % Normal 0.2-2.0 [facility] Comment on above: Performed By: #### C MP #### [facility] [address] [place] [address] Dr. Jeffrey Thomas EO # 0.2 103/ul Normal 0.0-0.7 [facility] Comment on above: Performed By: #### C MP #### [facility] [address] [place] [address] Dr. Jeffrey Thomas Eosinophils/100 WBC (Bld) 4.0 % Normal 0.9-7.0 [facility] Comment on above: Performed By: #### C MP #### [facility] [address] [place] [address] Dr. Jeffrey Thomas Erythrocyte distribution width (RBC) [Ratio] 14.6 % Normal 11.0-15.0 [facility] Comment on above: Performed By: #### C MP #### [facility] [address] [place] [address] Dr. Jeffrey Thomas Hematocrit (Bld) [Volume fraction] 35.8 % Critically low 36.0-48.0 [facility] Comment on above: Performed By: #### C MP #### [facility] [address] [place] [address] Dr. Jeffrey Thomas Hemoglobin (Bld) [Mass/Vol] 11.4 g/dL Critically low 12.0-16.0 [facility] Comment on above: Performed By: #### C MP #### [facility] [address] [place] [address] Dr. Jeffrey Thomas IG # 0.01 10e3/ul Normal 0.00-0.03 [facility] Comment on above: Performed By: #### C MP #### [facility] [address] [place] [address] Dr. Jeffrey Thomas IG % 0.2 % Normal 0.0-0.5 [facility] Comment on above: Performed By: #### C MP #### [facility] [address] [place], [place] [id number] Dr. Jeffrey Thomas LYMPH # 2.0 103/ul Normal 1.2-3.8 [facility] Comment on above: Performed By: #### C MP #### [facility] [address] [place] [address] Dr. Jeffrey Thomas Lymphocytes/100 WBC (Bld) 35.4 % Normal 20.5-60.0 [facility] Comment on above: Performed By: #### C MP #### [facility] [address] [place] [address] Dr. Jeffrey Thomas MANUAL DIFF REQ NO Normal [facility] Comment on above: Performed By: #### C MP #### [facility] [address] [place] [address] Dr. Jeffrey Thomas MCH (RBC) [Entitic mass] 29.9 pg Normal 26.7-34.0 [facility] Comment on above: Performed By: #### C MP #### [facility] [address] [place] [address] Dr. Jeffrey Thomas MCHC (RBC) [Mass/Vol] 31.8 g/dL Normal 29.9-35.2 [facility] Comment on above: Performed By: #### C MP #### [facility] [address] [place] [address] Dr. Jeffrey Thomas MCV (RBC) [Entitic vol] 94.0 fL Normal 81.0-99.0 [facility] Comment on above: Performed By: #### C MP #### [facility] [address] [place] [address] Dr. Jeffrey Thomas MONO # 0.5 103/ul Normal 0.3-0.8 [facility] Comment on above: Performed By: #### C MP #### [facility] [address] [place] [address] Dr. Jeffrey Thomas Monocytes/100 WBC (Bld) 9.2 % Normal 1.7-12.0 [facility] Comment on above: Performed By: #### C MP #### [facility] [address] [place] [address] Dr. Jeffrey Thomas NEUT # 2.8 103/ul Normal 1.4-6.5 [facility] Comment on above: Performed By: #### C MP #### [facility] [address] [place] [address] Dr. Jeffrey Thomas Neutrophils/100 WBC (Bld) 50.0 % Normal 43.0-75.0 [facility] Comment on above: Performed By: #### C MP #### [facility] [address] [place] [address] Dr. Jeffrey Thomas Platelet mean volume (Bld) [Entitic vol] 12.0 fL Normal 9.5-13.5 [facility] Comment on above: Performed By: #### C MP #### [facility] [address] [place] [address] Dr. Jeffrey Thomas PLT 199 103/ul Normal 150-450 [facility] Comment on above: Performed By: #### C MP #### [facility] [address] [place] [address] Dr. Jeffrey Thomas RBC 3.81 106/ul Critically low 4.20-5.40 [facility] Comment on above: Performed By: #### C MP #### [facility] [address] [place] [address] Dr. Jeffrey Thomas WBC 5.7 103/ul Normal 4.0-11.0 [facility] Comment on above: Performed By: #### C MP #### [facility] [address] [place] [address] Dr. Jeffrey Thomas LACTATE/LACTIC ACIDon 2022 Lactate [Moles/Vol] 0.6 mmol/L Normal 0.4-2.0 [facility] Comment on above: Performed By: #### C MP #### [facility] [address] [place] [address] Dr. Jeffrey Thomas Lactate [Moles/Vol] 2.8 mmol/L Critically high 0.4-2.0 [facility] Comment on above: Performed By: #### T 4LC #### [facility] [address] [place] [address] Dr. Jeffrey Thomas PROF 14(COMP METB)on 023 Albumin [Mass/Vol] 2.8 g/dL Critically low 3.4-5.0 [facility] Comment on above: Performed By: #### C MP #### [facility] [address] [place] [address] Dr. Jeffrey Thomas Albumin/Globulin [Mass ratio] 0.9 {ratio} Normal [facility] Comment on above: Performed By: #### C MP #### [facility] [address] [place] [address] Dr. Jeffrey Thomas ALP [Catalytic activity/Vol] 100 U/L Normal 46-116 [facility] Comment on above: Performed By: #### C MP #### [facility] [address] [place] [address] Dr. Jeffrey Thomas ALT [Catalytic activity/Vol] 102 U/L Critically high 14-59 [facility] Comment on above: Performed By: #### C MP #### [facility] [address] [place] [address] Dr. Jeffrey Thomas Anion gap [Moles/Vol] 17.0 mmol/L Normal [facility] Comment on above: Performed By: #### C MP #### [facility] [address] [place] [address] Dr. Jeffrey Thomas AST [Catalytic activity/Vol] 62 U/L Critically high 15-37 [facility] Comment on above: Performed By: #### C MP #### [facility] [address] [place] [address] Dr. Jeffrey Thomas Bilirubin [Mass/Vol] 0.3 mg/dL Normal 0.2-1.0 [facility] Comment on above: Performed By: #### C MP #### [facility] [address] [place] [address] Dr. Jeffrey Thomas Calcium [Mass/Vol] 8.1 mg/dL Critically low 8.5-10.1 [facility] Comment on above: Performed By: #### C MP #### [facility] [address] [place] [address] Dr. Jeffrey Thomas Chloride [Moles/Vol] 110 mmol/L Critically high 98-107 [facility] Comment on above: Performed By: #### C MP #### [facility] [address] [address] [address] Jeffrey Thomas CO2 [Moles/Vol] 18.6 mmol/L Critically low 21.0-32.0 [facility] Comment on above: Performed By: #### C MP #### [facility] [address] [address] [address] Jeffrey Thomas Creatinine [Mass/Vol] 1.43 mg/dL Critically high 0.55-1.02 [facility] Comment on above: Performed By: #### C MP #### [facility] [address] [address] [address] Jeffrey Thomas EGFR-AF [place] 45 mL/min/1.73m2 Critically low >=60 [facility] Comment on above: Performed By: #### C MP #### [facility] [address] [address] [address] Jeffrey Thomas EGFR-NON AF [place] 37 mL/min/1.73m2 Critically low >=60 [facility] Comment on above: Performed By: #### C MP #### [facility] [address] [address] [address] Jeffrye Thomas Globulin (S) [Mass/Vol] 3.0 g/dL Normal [facility] Comment on above: Performed By: #### C MP #### [facility] [address] [address] [address] Jeffrey Thomas Glucose [Mass/Vol] 141 mg/dL Critically high 74-106 [facility] Comment on above: Performed By: #### C MP #### [facility] [address] [address] [address] Jeffrey Thomas Potassium [Moles/Vol] 3.6 mmol/L Normal 3.5-5.1 [facility] Comment on above: Performed By: #### C MP #### [facility] [address] [address] [address] Jeffrey Thomas Protein [Mass/Vol] 5.8 g/dL Critically low 6.4-8.2 [facility] Comment on above: Performed By: #### C MP #### [facility] [address] [address] [address] Jeffrey Thomas Sodium [Moles/Vol] 142 mmol/L Normal 136-145 [facility] Comment on above: Performed By: #### C MP #### [facility] [address] [place] [address] Dr. Jeffrey Thomas Urea nitrogen [Mass/Vol] 22.0 mg/dL Critically high 7.0-18.0 [facility] Comment on above: Performed By: #### C ALE #### [facility] [address] [place] [address] Dr. Jeffrey Thomas Urea nitrogen/Creatinine [Mass ratio] 15.4 mg/mg Normal [facility] Comment on above: Performed By: #### C ALE #### [facility] [address] [place] [address] Dr. Jeffrey Thomas AMYLASEon 08-26-2022 Amylase [Catalytic activity/Vol] 40 U/L Normal 25-115 [facility] Comment on above: Performed By: #### C ALE #### [facility] [address] [place] [address] Dr. Jeffrey Thomas CARDIAC CHONG ADMITon 023 CK [Catalytic activity/Vol] 39 U/L Normal 26-192 [facility] Comment on above: Performed By: #### C JUANITO AGUILERA #### [facility] [address] [place] [address] Dr. Jeffrey Thomas CK.MB [Mass/Vol] 1.47 ng/mL Normal <=3.60 [facility] Comment on above: Performed By: #### C JUANITO AGUILERA #### [facility] [address] [place] [address] Dr. Jeffrey Thomas HSTROP 7.0 pg/mL Normal 4.0-51.3 [facility] Comment on above: Result Comment: CUT- OFF POINTS HAVE BEEN ESTABLISHED BASED ON THE FOURTH UNIVERSAL DEFINITIONS OF MYOCARDIAL INFARCTION. THE UPPER REFERENCE LIMIT (URL) OF TROPONIN, DEFINED THE 99TH PERCENTILE OF cTnI DISTRIBUTION IN A REFERENCE POPULATION, HAS BEEN CONFIRMED THE DECISION THRESHOLD FOR ME DIAGNOSIS. Performed By: #### C ALE, JUANITO #### [facility] [address] [place] [address] Dr. Jeffrey Thomas SHONNA 107 ng/mL Critically high 9-82 [facility] Comment on above: Performed By: #### C JUANITO AGUILERA #### [facility] [address] [place] [address] Dr. Jeffrey Thomas CBC AUTO DIFFon 08-26-2022 BASO # 0.1 103/ul Normal 0.0-0.1 [facility] Comment on above: Performed By: #### C MP #### [facility] [address] [place] [address] Dr. Jeffrey Thomas Basophils/100 WBC (Bld) 0.9 % Normal 0.2-2.0 [facility] Comment on above: Performed By: #### C MP #### [facility] [address] [place] [address] Dr. Jeffrey Thomas EO # 0.1 103/ul Normal 0.0-0.7 [facility] Comment on above: Performed By: #### C MP #### [facility] [address] [place] [address] Dr. Jeffrey Thomas Eosinophils/100 WBC (Bld) 0.9 % Normal 0.9-7.0 [facility] Comment on above: Performed By: #### C MP #### [facility] [address] [place] [address] Dr. Jeffrey Thomas Erythrocyte distribution width (RBC) [Ratio] 14.1 % Normal 11.0-15.0 [facility] Comment on above: Performed By: #### C MP #### [facility] [address] [place] [address] Dr. Jeffrey Thomas Hematocrit (Bld) [Volume fraction] 48.3 % Critically high 36.0-48.0 [facility] Comment on above: Performed By: #### C MP #### [facility] [address] [place] [address] Dr. Jeffrey Thomas Hemoglobin (Bld) [Mass/Vol] 15.4 g/dL Normal 12.0-16.0 [facility] Comment on above: Performed By: #### C MP #### [facility] [address] [place] [address] Dr. Jeffrey Thomas IG # 0.04 10e3/ul Critically high 0.00-0.03 [facility] Comment on above: Performed By: #### C MP #### [facility] [address] [place] [address] Dr. Jeffrey Thomas IG % 0.3 % Normal 0.0-0.5 [facility] Comment on above: Performed By: #### C MP #### [facility] [address] [place] [address] Dr. Jeffrey Thomas LYMPH # 1.2 103/ul Normal 1.2-3.8 [facility] Comment on above: Performed By: #### C MP #### [facility] [address] [place] [address] Dr. Jeffrey Thomas Lymphocytes/100 WBC (Bld) 10.0 % Critically low 20.5-60.0 [facility] Comment on above: Performed By: #### C MP #### [facility] [address] [place] [address] Dr. Jeffrey Thomas MANUAL DIFF REQ NO Normal [facility] Comment on above: Performed By: #### C MP #### [facility] [address] [place] [address] Dr. Jeffrey Thomas MCH (RBC) [Entitic mass] 29.7 pg Normal 26.7-34.0 [facility] Comment on above: Performed By: #### C MP #### [facility] [address] [place] [address] Dr. Jeffrey Thomas MCHC (RBC) [Mass/Vol] 31.9 g/dL Normal 29.9-35.2 [facility] Comment on above: Performed By: #### C MP #### [facility] [address] [place] [address] Dr. Jeffrey Thomas MCV (RBC) [Entitic vol] 93.1 fL Normal 81.0-99.0 [facility] Comment on above: Performed By: #### C MP #### [facility] [address] [place] [address] Dr. Jeffrey Thomas MONO # 0.5 103/ul Normal 0.3-0.8 [facility] Comment on above: Performed By: #### C MP #### [facility] [address] [place] [address] Dr. Jeffrey Thomas Monocytes/100 WBC (Bld) 4.1 % Normal 1.7-12.0 [facility] Comment on above: Performed By: #### C MP #### [facility] [address] [place] [address] Dr. Jeffrey Thomas NEUT # 10.2 103/ul Critically high 1.4-6.5 [facility] Comment on above: Performed By: #### C MP #### [facility] [address] [place] [address] Dr. Jeffrey Thomas Neutrophils/100 WBC (Bld) 83.8 % Critically high 43.0-75.0 [facility] Comment on above: Performed By: #### C MP #### [facility] [address] [place] [address] Dr. Jeffrey Thomas Platelet mean volume (Bld) [Entitic vol] 12.2 fL Normal 9.5-13.5 [facility] Comment on above: Performed By: #### C MP #### [facility] [address] [place] [address] Dr. Jeffrey Thomas PLT 303 103/ul Normal 150-450 [facility] Comment on above: Performed By: #### C MP #### [facility] [address] [place] [address] Dr. Jeffrey Thomas RBC 5.19 106/ul Normal 4.20-5.40 [facility] Comment on above: Performed By: #### C MP #### [facility] [address] [place] [address] Dr. Jeffrey Thomas WBC 12.2 103/ul Critically high 4.0-11.0 [facility] Comment on above: Performed By: #### C MP #### [facility] [address] [address] ABD/PELVIS WO CONon [...] by: SALVADOR POTTS Date: 2022-08-26 15:43 Normal [facility] LIPASEon 08-26-2022 Lipase [Catalytic activity/Vol] 27.0 U/L Critically low 73.0-393.0 [facility] Comment on above: Performed By: #### L ACT #### [facility] [address] [address] [address] Jeffrey Thomas PROF 14(COMP METB)on 023 Albumin [Mass/Vol] 3.7 g/dL Normal 3.4-5.0 [facility] Comment on above: Performed By: #### C MP, CMADM #### [facility] [address] [address] [address] Jeffrey Thomas Albumin/Globulin [Mass ratio] 0.9 {ratio} Normal [facility] Comment on above: Performed By: #### C MP, CMADM #### [facility] [address] [address] [address] Jeffrey Thomas ALP [Catalytic activity/Vol] 138 U/L Critically high 46-116 [facility] Comment on above: Performed By: #### C MP, CMADM #### [facility] [address] [address] [address] Jeffrey Thomas ALT [Catalytic activity/Vol] 174 U/L Critically high 14-59 [facility] Comment on above: Performed By: #### C MP, CMADM #### [facility] [address] [address] [address] Jeffrey Thomas Anion gap [Moles/Vol] 20.4 mmol/L Normal [facility] Comment on above: Performed By: #### C MP, CMADM #### [facility] [address] [address] [address] Jeffrey Thomas AST [Catalytic activity/Vol] 135 U/L Critically high 15-37 [facility] Comment on above: Performed By: #### C MP, CMADM #### [facility] [address] [address] [address] Jeffrey Thomas Bilirubin [Mass/Vol] 0.4 mg/dL Normal 0.2-1.0 [facility] Comment on above: Performed By: #### C MP, CMADM #### [facility] [address] [address] [address] Jeffrey Thomas Calcium [Mass/Vol] 9.1 mg/dL Normal 8.5-10.1 [facility] Comment on above: Performed By: #### C MP, CMADM #### [facility] [address] [address] [address] Jeffrey Thomas Chloride [Moles/Vol] 103 mmol/L Normal 98-107 [facility] Comment on above: Performed By: #### C MP, CMADM #### [facility] [address] [address] [address] Jeffrey Thomas CO2 [Moles/Vol] 18.5 mmol/L Critically low 21.0-32.0 [facility] Comment on above: Performed By: #### C MP, CMADM #### [facility] [address] [address] [address] Jeffrey Thomas Creatinine [Mass/Vol] 1.85 mg/dL Critically high 0.55-1.02 [facility] Comment on above: Performed By: #### C MP, CMADM #### [facility] [address] [address] [address] Jeffrey Thomas EGFR-AF [place] 33 mL/min/1.73m2 Critically low >=60 [facility] Comment on above: Performed By: #### C MP, CMADM #### [facility] [address] [address] [address] Jeffrey Thomas EGFR-NON AF [place] 27 mL/min/1.73m2 Critically low >=60 [facility] Comment on above: Performed By: #### C MP, CMADM #### [facility] [address] [place] [address] Dr. Jeffrey Thomas Globulin (S) [Mass/Vol] 4.0 g/dL Normal [facility] Comment on above: Performed By: #### C MP, CMADM #### [facility] [address] [address] [address] Jeffrey Thomas Glucose [Mass/Vol] 110 mg/dL Critically high 74-106 [facility] Comment on above: Performed By: #### C MP, CMADM #### [facility] [address] [address] [address] Jeffrey Thomas Potassium [Moles/Vol] 3.9 mmol/L Normal 3.5-5.1 [facility] Comment on above: Performed By: #### C MP, CMADM #### [facility] [address] [place] [address] Dr. Jeffrey Thomas Protein [Mass/Vol] 7.7 g/dL Normal 6.4-8.2 [facility] Comment on above: Performed By: #### C MP, CMADM #### [facility] [address] [address] [address] Jeffrey Thomas Sodium [Moles/Vol] 138 mmol/L Normal 136-145 [facility] Comment on above: Performed By: #### C ALE, CMADM #### [facility] [address] [address] [address] Jeffrey Thomas Urea nitrogen [Mass/Vol] 32.0 mg/dL Critically high 7.0-18.0 [facility] Comment on above: Performed By: #### C ALE, CMADM #### [facility] [address] [place] [address] Dr. Jeffrey Thomas Urea nitrogen/Creatinine [Mass ratio] 17.3 mg/mg Normal [facility] Comment on above: Performed By: #### C ALE, CMADM #### [facility] [address] [place] [address] Dr. Jeffrey Thomas US SINGLE QUAD RT [...] LIDIA COLÓN Date: 2022-08-26 20:40 Normal [facility] CBC AUTO DIFFon 08-01-2022 BASO # 0.1 103/ul Normal 0.0-0.1 [facility] Comment on above: Performed By: #### T 4LC #### [facility] [address] [address] [address] Jeffrey Thomas Basophils/100 WBC (Bld) 1.3 % Normal 0.2-2.0 [facility] Comment on above: Performed By: #### T 4LC #### [facility] [address] [address] [address] Jeffrey Thomas EO # 0.2 103/ul Normal 0.0-0.7 [facility] Comment on above: Performed By: #### T 4LC #### [facility] [address] [address] [address] Jeffrey Thomas Eosinophils/100 WBC (Bld) 2.8 % Normal 0.9-7.0 [facility] Comment on above: Performed By: #### T 4LC #### [facility] [address] [address] [address] Jeffrey Thomas Erythrocyte distribution width (RBC) [Ratio] 15.9 % Critically high 11.0-15.0 [facility] Comment on above: Performed By: #### T 4LC #### [facility] [address] [address] [address] Jeffrey Thoams Hematocrit (Bld) [Volume fraction] 37.7 % Normal 36.0-48.0 [facility] Comment on above: Performed By: #### T 4LC #### [facility] [address] [address] [address] Jeffrey Thomas Hemoglobin (Bld) [Mass/Vol] 11.5 g/dL Critically low 12.0-16.0 [facility] Comment on above: Performed By: #### T 4LC #### [facility] [address] [place] [address] Dr. Jeffrey Thomas IG # 0.03 10e3/ul Normal 0.00-0.03 [facility] Comment on above: Performed By: #### T 4LC #### [facility] [address] [place] [address] Dr. Jeffrey Thomas IG % 0.4 % Normal 0.0-0.5 [facility] Comment on above: Performed By: #### T 4LC #### [facility] [address] [place] [address] Dr. Jeffrey Thomas LYMPH # 1.6 103/ul Normal 1.2-3.8 [facility] Comment on above: Performed By: #### T 4LC #### [facility] [address] [place] [address] Dr. Jeffrey Thomas Lymphocytes/100 WBC (Bld) 20.9 % Normal 20.5-60.0 [facility] Comment on above: Performed By: #### T 4LC #### [facility] [address] [place] [address] Dr. Jeffrey Thomas MANUAL DIFF REQ NO Normal [facility] Comment on above: Performed By: #### T 4LC #### [facility] [address] [place] [address] Dr. Jeffrey Thomas MCH (RBC) [Entitic mass] 30.0 pg Normal 26.7-34.0 [facility] Comment on above: Performed By: #### T 4LC #### [facility] [address] [place] [address] Dr. Jeffrey Thomas MCHC (RBC) [Mass/Vol] 30.5 g/dL Normal 29.9-35.2 [facility] Comment on above: Performed By: #### T 4LC #### [facility] [address] [place] [address] Dr. Jeffrey Thomas MCV (RBC) [Entitic vol] 98.4 fL Normal 81.0-99.0 [facility] Comment on above: Performed By: #### 4LC #### [facility] [address] [address] [address] Jeffrey Thomas MONO # 0.7 103/ul Normal 0.3-0.8 [facility] Comment on above: Performed By: #### 4LC #### [facility] [address] [address] [address] Jeffrey Thomas Monocytes/100 WBC (Bld) 8.7 % Normal 1.7-12.0 [facility] Comment on above: Performed By: #### 4LC #### [facility] [address] [address] [address] Jeffrey Thomas NEUT # 5.2 103/ul Normal 1.4-6.5 [facility] Comment on above: Performed By: #### 4LC #### [facility] [address] [place] [address] Dr. Jeffrey Thomas Neutrophils/100 WBC (Bld) 65.9 % Normal 43.0-75.0 [facility] Comment on above: Performed By: #### 4LC #### [facility] [address] [place] [address] Dr. Jeffrey Thomas Platelet mean volume (Bld) [Entitic vol] 11.8 fL Normal 9.5-13.5 [facility] Comment on above: Performed By: #### 4LC #### [facility] [address] [place] [address] Dr. Jeffrey Thomas PLT 265 103/ul Normal 150-450 [facility] Comment on above: Performed By: #### 4LC #### [facility] [address] [place] [address] Dr. Jeffrey Thomas RBC 3.83 106/ul Critically low 4.20-5.40 [facility] Comment on above: Performed By: #### T 4LC #### [facility] [address] [address] [address] Jeffrey Thomas WBC 7.8 103/ul Normal 4.0-11.0 [facility] Comment on above: Performed By: #### 4LC #### [facility] [address] [place] [address] Dr. Jeffrey Thomas CULTURE BLOODon 08-01-2022 Microscopic examination of blood, culture Culture Observations: NO GROWTH AT 5 DAYS. Normal [facility] Comment on above: Performed By: #### A MM #### [facility] [address] [place] [address] Dr. Jeffrey Thomas PROF 14(COMP METB)on 023 Albumin [Mass/Vol] 3.4 g/dL Normal 3.4-5.0 [facility] Comment on above: Performed By: #### C MP #### [facility] [address] [place] [address] Dr. Jeffrey Thomas Albumin/Globulin [Mass ratio] 0.8 {ratio} Normal [facility] Comment on above: Performed By: #### C MP #### [facility] [address] [place] [address] Dr. Jeffrey Thomas ALP [Catalytic activity/Vol] 98 U/L Normal 46-116 [facility] Comment on above: Performed By: #### C MP #### [facility] [address] [place] [address] Dr. Jeffrey Thomas ALT [Catalytic activity/Vol] 18 U/L Normal 14-59 [facility] Comment on above: Performed By: #### C MP #### [facility] [address] [place] [address] Dr. Jeffrey Thomas Anion gap [Moles/Vol] 13.3 mmol/L Normal [facility] Comment on above: Performed By: #### C MP #### [facility] [address] [place] [address] Dr. Jeffrey Thomas AST [Catalytic activity/Vol] 21 U/L Normal 15-37 [facility] Comment on above: Performed By: #### C MP #### [facility] [address] [place] [address] Dr. Jeffrey Thomas Bilirubin [Mass/Vol] 0.2 mg/dL Normal 0.2-1.0 [facility] Comment on above: Performed By: #### C MP #### [facility] [address] [address] [address] Jeffrey Thomas Calcium [Mass/Vol] 9.2 mg/dL Normal 8.5-10.1 [facility] Comment on above: Performed By: #### C MP #### [facility] [address] [address] [address] Jeffrey Thomas Chloride [Moles/Vol] 106 mmol/L Normal 98-107 [facility] Comment on above: Performed By: #### C MP #### [facility] [address] [address] [address] Jeffrey Thomas CO2 [Moles/Vol] 23.8 mmol/L Normal 21.0-32.0 [facility] Comment on above: Performed By: #### C MP #### [facility] [address] [address] [address] Jeffrey Thomas Creatinine [Mass/Vol] 1.07 mg/dL Critically high 0.55-1.02 [facility] Comment on above: Performed By: #### C MP #### [facility] [address] [address] [address] Jeffrey Thomas EGFR-AF [place] >60 Normal >=60 [facility] Comment on above: Performed By: #### C MP #### [facility] [address] [address] [address] Jeffrey Thomas EGFR-NON AF [place] 51 mL/min/1.73m2 Critically low >=60 [facility] Comment on above: Performed By: #### C MP #### [facility] [address] [address] [address] Jeffrey Thomas Globulin (S) [Mass/Vol] 4.1 g/dL Normal [facility] Comment on above: Performed By: #### C MP #### [facility] [address] [address] [address] Jeffrey Thomas Glucose [Mass/Vol] 77 mg/dL Normal 74-106 [facility] Comment on above: Performed By: #### C MP #### [facility] [address] [address] [address] Jeffrey Thomas Potassium [Moles/Vol] 5.1 mmol/L Normal 3.5-5.1 [facility] Comment on above: Performed By: #### C MP #### [facility] [address] [address] [address] Jeffrey Thomas Protein [Mass/Vol] 7.5 g/dL Normal 6.4-8.2 [facility] Comment on above: Performed By: #### C MP #### [facility] [address] [address] [address] Jeffrey Thomas Sodium [Moles/Vol] 138 mmol/L Normal 136-145 [facility] Comment on above: Performed By: #### C MP #### [facility] [address] [address] [address] Jeffrey Thomas Urea nitrogen [Mass/Vol] 36.0 mg/dL Critically high 7.0-18.0 [facility] Comment on above: Performed By: #### C MP #### [facility] [address] [address] [address] Jeffrey Thomas Urea nitrogen/Creatinine [Mass ratio] 33.6 mg/mg Normal [facility] Comment on above: Performed By: #### C MP #### [facility] [address] [address] [address] Jeffrey Thomas SED RATE WESTERGRENon 2022 SED RATE 42 mm/hr Critically high <=30 [facility] Comment on above: Performed By: #### C MP #### [facility] [address] [address] [address] Jeffrey Thomas AMMONIAon 05-23-2022 Ammonia (P) [Moles/Vol] 18 umol/L Normal 11-32 [facility] Comment on above: Performed By: #### C MP #### [facility] [address] [address] [address] Jeffrey Thomas AMYLASEon 05-23-2022 Amylase [Catalytic activity/Vol] 30 U/L Normal 25-115 [facility] Comment on above: Performed By: #### A MM #### [facility] [address] [place] [address] Dr. Jeffrey Thomas BNPon 05-23-2022 Natriuretic peptide B (Bld) [Mass/Vol] 1066.0 pg/mL Critically high <=900.0 [facility] Comment on above: Performed By: #### A MM #### [facility] [address] [place] [address] Dr. Jeffrey Thomas CBC AUTO DIFFon 05-23-2022 BASO # 0.1 103/ul Normal 0.0-0.1 [facility] Comment on above: Performed By: #### C MP #### [facility] [address] [place] [address] Dr. Jeffrey Thomas Basophils/100 WBC (Bld) 1.1 % Normal 0.2-2.0 [facility] Comment on above: Performed By: #### C MP #### [facility] [address] [place] [address] Dr. Jeffrey Thomas EO # 0.2 103/ul Normal 0.0-0.7 [facility] Comment on above: Performed By: #### C MP #### [facility] [address] [place] [address] Dr. Jeffrey Thomas Eosinophils/100 WBC (Bld) 3.1 % Normal 0.9-7.0 [facility] Comment on above: Performed By: #### C MP #### [facility] [address] [place] [address] Dr. Jeffrey Thomas Erythrocyte distribution width (RBC) [Ratio] 17.2 % Critically high 11.0-15.0 [facility] Comment on above: Performed By: #### C MP #### [facility] [address] [place] [address] Dr. Jeffrey Thomas Hematocrit (Bld) [Volume fraction] 33.0 % Critically low 36.0-48.0 [facility] Comment on above: Performed By: #### C MP #### [facility] [address] [place] [address] Dr. Jeffrey Thomas Hemoglobin (Bld) [Mass/Vol] 10.3 g/dL Critically low 12.0-16.0 [facility] Comment on above: Performed By: #### C MP #### [facility] [address] [place] [address] Dr. Jeffrey Thomas IG # 0.02 10e3/ul Normal 0.00-0.03 [facility] Comment on above: Performed By: #### C MP #### [facility] [address] [place] [address] Dr. Jeffrey Thomas IG % 0.3 % Normal 0.0-0.5 [facility] Comment on above: Performed By: #### C MP #### [facility] [address] [place] [address] Dr. Jeffrey Thomas LYMPH # 1.8 103/ul Normal 1.2-3.8 [facility] Comment on above: Performed By: #### C MP #### [facility] [address] [place] [address] Dr. Jeffrey Thomas Lymphocytes/100 WBC (Bld) 27.8 % Normal 20.5-60.0 [facility] Comment on above: Performed By: #### C MP #### [facility] [address] [place] [address] Dr. Jeffrey Thomas MANUAL DIFF REQ NO Normal [facility] Comment on above: Performed By: #### C MP #### [facility] [address] [place] [address] Dr. Jeffrey Thomas MCH (RBC) [Entitic mass] 28.4 pg Normal 26.7-34.0 [facility] Comment on above: Performed By: #### C MP #### [facility] [address] [place] [address] Dr. Jeffrey Thomas MCHC (RBC) [Mass/Vol] 31.2 g/dL Normal 29.9-35.2 [facility] Comment on above: Performed By: #### C MP #### [facility] [address] [place] [address] Dr. Jeffrey Thomas MCV (RBC) [Entitic vol] 90.9 fL Normal 81.0-99.0 [facility] Comment on above: Performed By: #### C MP #### [facility] [address] [address] [address] Jeffrey Thomas MONO # 0.4 103/ul Normal 0.3-0.8 [facility] Comment on above: Performed By: #### C MP #### [facility] [address] [address] [address] Jeffrey Thomas Monocytes/100 WBC (Bld) 6.7 % Normal 1.7-12.0 [facility] Comment on above: Performed By: #### C MP #### [facility] [address] [address] [address] Jeffrey Thomas NEUT # 4.0 103/ul Normal 1.4-6.5 [facility] Comment on above: Performed By: #### C MP #### [facility] [address] [place] [address] Dr. Jeffrey Thoams Neutrophils/100 WBC (Bld) 61.0 % Normal 43.0-75.0 [facility] Comment on above: Performed By: #### C MP #### [facility] [address] [place] [address] Dr. Jeffrey Thomas Platelet mean volume (Bld) [Entitic vol] 10.4 fL Normal 9.5-13.5 [facility] Comment on above: Performed By: #### C MP #### [facility] [address] [address] [address] Jeffrey Thomas PLT 218 103/ul Normal 150-450 [facility] Comment on above: Performed By: #### C MP #### [facility] [address] [address] [address] Jeffrey Thomas RBC 3.63 106/ul Critically low 4.20-5.40 [facility] Comment on above: Performed By: #### C MP #### [facility] [address] [address] [address] Jeffrey Thomas WBC 6.5 103/ul Normal 4.0-11.0 [facility] Comment on above: Performed By: #### C MP #### [facility] [address] [place] [address] Dr. Jeffrey Thomas MAGNESIUMon 05-23-2022 Magnesium [Mass/Vol] 1.4 mg/dL Critically low 1.8-2.4 [facility] Comment on above: Performed By: #### A MM #### [facility] [address] [place] [address] Dr. Jeffrey Thomas PROF 14(COMP METB)on 023 Albumin [Mass/Vol] 2.8 g/dL Critically low 3.4-5.0 [facility] Comment on above: Performed By: #### A MM #### [facility] [address] [place] [address] Dr. Jeffrey Thomas Albumin/Globulin [Mass ratio] 1.0 {ratio} Normal [facility] Comment on above: Performed By: #### A MM #### [facility] [address] [place] [address] Dr. Jeffrey Thomas ALP [Catalytic activity/Vol] 113 U/L Normal 46-116 [facility] Comment on above: Performed By: #### A MM #### [facility] [address] [place] [address] Dr. Jeffrey Thomas ALT [Catalytic activity/Vol] 14 U/L Normal 14-59 [facility] Comment on above: Performed By: #### A MM #### [facility] [address] [place] [address] Dr. Jeffrey Thomas Anion gap [Moles/Vol] 15.0 mmol/L Normal [facility] Comment on above: Performed By: #### A MM #### [facility] [address] [place] [address] Dr. Jeffrey Thomas AST [Catalytic activity/Vol] 18 U/L Normal 15-37 [facility] Comment on above: Performed By: #### A MM #### [facility] [address] [place] [address] Dr. Jeffrey Thomas Bilirubin [Mass/Vol] 0.5 mg/dL Normal 0.2-1.0 [facility] Comment on above: Performed By: #### A MM #### [facility] [address] [address] [address] Jeffrey Thomas Calcium [Mass/Vol] 8.3 mg/dL Critically low 8.5-10.1 [facility] Comment on above: Performed By: #### A MM #### [facility] [address] [address] [address] Jeffrey Thomas Chloride [Moles/Vol] 106 mmol/L Normal 98-107 [facility] Comment on above: Performed By: #### A MM #### [facility] [address] [address] [address] Jeffrey Thomas CO2 [Moles/Vol] 21.2 mmol/L Normal 21.0-32.0 [facility] Comment on above: Performed By: #### A MM #### [facility] [address] [place] [address] Dr. Jeffrey Thomas Creatinine [Mass/Vol] 1.02 mg/dL Normal 0.55-1.02 [facility] Comment on above: Performed By: #### A MM #### [facility] [address] [place] [address] Dr. Jeffrey Thomas EGFR-AF [place] >60 Normal >=60 [facility] Comment on above: Performed By: #### A MM #### [facility] [address] [place] [address] Dr. Jeffrey Thomas EGFR-NON AF [place] 54 mL/min/1.73m2 Critically low >=60 [facility] Comment on above: Performed By: #### A MM #### [facility] [address] [place] [address] Dr. Jeffrey Thomas Globulin (S) [Mass/Vol] 2.8 g/dL Normal [facility] Comment on above: Performed By: #### A MM #### [facility] [address] [place] [address] Dr. Jeffrey Thomas Glucose [Mass/Vol] 85 mg/dL Normal 74-106 [facility] Comment on above: Performed By: #### A MM #### [facility] [address] [place] [address] Dr. Jeffrey Thomas Potassium [Moles/Vol] 4.2 mmol/L Normal 3.5-5.1 [facility] Comment on above: Performed By: #### A MM #### [facility] [address] [place] [address] Dr. Jeffrey Thomas Protein [Mass/Vol] 5.6 g/dL Critically low 6.4-8.2 [facility] Comment on above: Performed By: #### A MM #### [facility] [address] [place] [address] Dr. Jeffrey Thomas Sodium [Moles/Vol] 138 mmol/L Normal 136-145 [facility] Comment on above: Performed By: #### A MM #### [facility] [address] [place] [address] Dr. Jeffrey Thomas Urea nitrogen [Mass/Vol] 17.0 mg/dL Normal 7.0-18.0 [facility] Comment on above: Performed By: #### A MM #### [facility] [address] [place] [address] Dr. Jeffrey Thomas Urea nitrogen/Creatinine [Mass ratio] 16.7 mg/mg Normal [facility] Comment on above: Performed By: #### A MM #### [facility] [address] [place] [address] Dr. Jeffrey Thomas BNPon 05-22-2022 Natriuretic peptide B (Bld) [Mass/Vol] 1738.0 pg/mL Critically high <=900.0 [facility] Comment on above: Performed By: #### C MP #### [facility] [address] [place] [address] Dr. Jeffrey Thomas CBC AUTO DIFFon 05-22-2022 BASO # 0.1 103/ul Normal 0.0-0.1 [facility] Comment on above: Performed By: #### C MP #### [facility] [address] [place] [address] Dr. Jeffrey Thomas Basophils/100 WBC (Bld) 1.0 % Normal 0.2-2.0 [facility] Comment on above: Performed By: #### C MP #### [facility] [address] [place] [address] Dr. Jeffrey Thomas EO # 0.1 103/ul Normal 0.0-0.7 [facility] Comment on above: Performed By: #### C MP #### [facility] [address] [place] [address] Dr. Jeffrey Thomas Eosinophils/100 WBC (Bld) 1.0 % Normal 0.9-7.0 [facility] Comment on above: Performed By: #### C MP #### [facility] [address] [place] [address] Dr. Jeffrey Thomas Erythrocyte distribution width (RBC) [Ratio] 17.2 % Critically high 11.0-15.0 [facility] Comment on above: Performed By: #### C MP #### [facility] [address] [place] [address] Dr. Jeffrey Thomas Hematocrit (Bld) [Volume fraction] 36.8 % Normal 36.0-48.0 [facility] Comment on above: Performed By: #### C MP #### [facility] [address] [place] [address] Dr. Jeffrey Thomas Hemoglobin (Bld) [Mass/Vol] 11.8 g/dL Critically low 12.0-16.0 [facility] Comment on above: Performed By: #### C MP #### [facility] [address] [place] [address] Dr. Jeffrey Thomas IG # 0.01 10e3/ul Normal 0.00-0.03 [facility] Comment on above: Performed By: #### C MP #### [facility] [address] [place] [address] Dr. Jeffrey Thomas IG % 0.2 % Normal 0.0-0.5 [facility] Comment on above: Performed By: #### C MP #### [facility] [address] [place] [address] Dr. Jeffrey Thomas LYMPH # 1.4 103/ul Normal 1.2-3.8 [facility] Comment on above: Performed By: #### C MP #### [facility] [address] [place] [address] Dr. Jeffrey Thomas Lymphocytes/100 WBC (Bld) 28.2 % Normal 20.5-60.0 [facility] Comment on above: Performed By: #### C MP #### [facility] [address] [place] [address] Dr. Jeffrey Thomas MANUAL DIFF REQ NO Normal [facility] Comment on above: Performed By: #### C MP #### [facility] [address] [address] [address] Jeffrey Thomas MCH (RBC) [Entitic mass] 29.0 pg Normal 26.7-34.0 [facility] Comment on above: Performed By: #### C MP #### [facility] [address] [place] [address] Dr. Jeffrey Thomas MCHC (RBC) [Mass/Vol] 32.1 g/dL Normal 29.9-35.2 [facility] Comment on above: Performed By: #### C MP #### [facility] [address] [place] [address] Dr. Jeffrey Thomas MCV (RBC) [Entitic vol] 90.4 fL Normal 81.0-99.0 [facility] Comment on above: Performed By: #### C MP #### [facility] [address] [place] [address] Dr. Jeffrey Thomas MONO # 0.4 103/ul Normal 0.3-0.8 [facility] Comment on above: Performed By: #### C MP #### [facility] [address] [place] [address] Dr. Jeffrey Thomas Monocytes/100 WBC (Bld) 7.3 % Normal 1.7-12.0 [facility] Comment on above: Performed By: #### C MP #### [facility] [address] [place] [address] Dr. Jeffrey Thomas NEUT # 3.0 103/ul Normal 1.4-6.5 [facility] Comment on above: Performed By: #### C MP #### [facility] [address] [place] [address] Dr. Jeffrey Thomas Neutrophils/100 WBC (Bld) 62.3 % Normal 43.0-75.0 [facility] Comment on above: Performed By: #### C MP #### [facility] [address] [place] [address] Dr. Jeffrey Thomas Platelet mean volume (Bld) [Entitic vol] 10.4 fL Normal 9.5-13.5 [facility] Comment on above: Performed By: #### C MP #### [facility] [address] [place] [address] Dr. Jeffrey Thomas PLT 254 103/ul Normal 150-450 [facility] Comment on above: Performed By: #### C MP #### [facility] [address] [place] [address] Dr. Jeffrey Thomas RBC 4.07 106/ul Critically low 4.20-5.40 [facility] Comment on above: Performed By: #### C MP #### [facility] [address] [place] [address] Dr. Jeffrey Thomas WBC 4.8 103/ul Normal 4.0-11.0 [facility] Comment on above: Performed By: #### C MP #### [facility] [address] [place] [address] ABD/PELVIS WO CONon [...] SALOME JOLLY Date: 2022-05-22 15:45 Normal [facility] CULTURE URINEon 05-22-2022 CULTURE URINE Culture Observations : LIGHT GROWTH OF MIXED GENITAL CANDIDA. NO POTENTIAL PATHOGENS SEEN. Normal [facility] Comment on above: Performed By: #### A MM #### [facility] [address] [place] [address] Dr. Jeffrey Garciaid-19 PCR (CVDTB)on 05-04 SARS-CoV-2 (COVID-19) RNA REBECCA+probe Ql (Unsp spec) Not detected Normal NOT DETECTED [facility] Comment on above: Result Comment: When [...] for this test is supported by the [place] of Health and Human Service's declaration that [...] used). Performed By: #### C MP #### [facility] [address] [place] [address] Dr. Jeffrey Thomas ER URINE PROFILEon 3 Bilirubin Ql (U) Negative Normal NEGATIVE [facility] Comment on above: Performed By: #### C MP #### [facility] [address] [place] [address] Dr. Jeffrey Thomas Clarity (U) CLEAR Normal CLEAR [facility] Comment on above: Performed By: #### C MP #### [facility] [address] [place] [address] Dr. Jeffrey Thomas Color (U) YELLOW Normal YELLOW [facility] Comment on above: Performed By: #### C MP #### [facility] [address] [place] [address] Dr. Jeffrey Thomas ERUPAM A micrscopic examination will be performed if indicated. Normal [facility] Comment on above: Performed By: #### C MP #### [facility] [address] [place] [address] Dr. Jeffrey Thomas Glucose Ql (U) Negative Normal NEGATIVE [facility] Comment on above: Performed By: #### C MP #### [facility] [address] [place] [address] Dr. Jeffrey Thomas Hemoglobin Ql (U) Negative Normal NEGATIVE [facility] Comment on above: Performed By: #### C MP #### [facility] [address] [place] [address] Dr. Jeffrey Thomas Ketones Ql (U) Negative Normal NEGATIVE [facility] Comment on above: Performed By: #### C MP #### [facility] [address] [place] [address] Dr. Jeffrey Thomas LEUKOCYTES Negative Normal NEGATIVE [facility] Comment on above: Performed By: #### C MP #### [facility] [address] [place] [address] Dr. Jeffrey Thomas Nitrite Ql (U) Negative Normal NEGATIVE [facility] Comment on above: Performed By: #### C MP #### [facility] [address] [place] [address] Dr. Jeffrey Thomas pH (U) 5.0 [pH] Normal 5-9 [facility] Comment on above: Performed By: #### C MP #### [facility] [address] [place] [address] Dr. Jeffrey Thomas SPEC GRAVITY 1.020 Normal 1.005-<=1.02 5 [facility] Comment on above: Performed By: #### C MP #### [facility] [address] [place] [address] Dr. Jeffrey Thomas UA PROTEIN Negative Normal NEGATIVE/ TRACE [facility] Comment on above: Performed By: #### C MP #### [facility] [address] [place] [address] Dr. Jeffrey Thomas UR MICRO IND NOT INDICATED Normal [facility] Comment on above: Performed By: #### C MP #### [facility] [address] [place] [address] Dr. Jeffrey hTomas Urobilinogen Qn (U) 0.2 {Bere'U}/dL Normal 0.2 - 1. 0 [facility] Comment on above: Performed By: #### C MP #### [facility] [address] [place] [address] Dr. Jeffrey Thomas INFLUENZA A AND B AGon 05-22 INFLUANEGH SEE BELOW Normal [facility] Comment on above: Result Comment: Nega tive for Flu A protein angiten. Infection due to Flu A cannot be ruled out. Flu A angiten in the sample may be below the detection limit of the test. Performed By: #### C MP #### [facility] [address] [place] [address] Dr. Jeffrey Thomas INFLUBNEGH SEE BELOW Normal [facility] Comment on above: Result Comment: Nega tive for Flu B protein antigen. Infection due to Flu B cannot be ruled out. Flu B antigen in the sample may be below the detection limit of the test. Performed By: #### C MP #### [facility] [address] [place] [address] Dr. Jeffrey Thomas INFLUENZA A AG Negative Normal NEGATIVE SEE COMMENT [facility] Comment on above: Performed By: #### C MP #### [facility] [address] [place] [address] Dr. Jeffrey Thomas INFLUENZA B AG Negative Normal NEGATIVE SEE COMMENT [facility] Comment on above: Performed By: #### C MP #### [facility] [address] [place] [address] Dr. Jeffery Thomas LACTATE/LACTIC ACIDon 2022 Lactate [Moles/Vol] 1.4 mmol/L Normal 0.4-1.9 [facility] Comment on above: Performed By: #### L ACT #### [facility] [address] [place] [address] Dr. Jeffrey Thomas Lactate [Moles/Vol] 1.1 mmol/L Normal 0.4-1.9 [facility] Comment on above: Performed By: #### T 4LC #### [facility] [address] [place] [address] Dr. Jeffrey Thomas LIPASEon 05-22-2022 Lipase [Catalytic activity/Vol] 21.0 U/L Critically low 73.0-393.0 [facility] Comment on above: Performed By: #### C MP #### [facility] [address] [place] [address] Dr. Jeffrey Thomas PROF 14(COMP METB)on 023 Albumin [Mass/Vol] 3.2 g/dL Critically low 3.4-5.0 [facility] Comment on above: Performed By: #### C MP #### [facility] [address] [place] [address] Dr. Jeffrey Thomas Albumin/Globulin [Mass ratio] 1.0 {ratio} Normal [facility] Comment on above: Performed By: #### C MP #### [facility] [address] [place] [address] Dr. Jeffrey Thomas ALP [Catalytic activity/Vol] 133 U/L Critically high 46-116 [facility] Comment on above: Performed By: #### C MP #### [facility] [address] [place] [address] Dr. Jeffrey Thomas ALT [Catalytic activity/Vol] 14 U/L Normal 14-59 [facility] Comment on above: Performed By: #### C MP #### [facility] [address] [place] [address] Dr. Jeffrey Thomas Anion gap [Moles/Vol] 17.3 mmol/L Normal [facility] Comment on above: Performed By: #### C MP #### [facility] [address] [place] [address] Dr. Jeffrey Thomas AST [Catalytic activity/Vol] 18 U/L Normal 15-37 [facility] Comment on above: Performed By: #### C MP #### [facility] [address] [place] [address] Dr. Jeffrey Thomas Bilirubin [Mass/Vol] 0.5 mg/dL Normal 0.2-1.0 [facility] Comment on above: Performed By: #### C MP #### [facility] [address] [place] [address] Dr. Jeffrey Thomas Calcium [Mass/Vol] 9.0 mg/dL Normal 8.5-10.1 [facility] Comment on above: Performed By: #### C MP #### [facility] [address] [address] [address] Jeffrey Thomas Chloride [Moles/Vol] 107 mmol/L Normal 98-107 [facility] Comment on above: Performed By: #### C MP #### [facility] [address] [address] [address] Jeffrey Thomas CO2 [Moles/Vol] 20.0 mmol/L Critically low 21.0-32.0 [facility] Comment on above: Performed By: #### C MP #### [facility] [address] [address] [address] Jeffrey Thomas Creatinine [Mass/Vol] 1.05 mg/dL Critically high 0.55-1.02 [facility] Comment on above: Performed By: #### C MP #### [facility] [address] [place] [address] Dr. Jeffrey Thomas EGFR-AF [place] >60 Normal >=60 [facility] Comment on above: Performed By: #### C MP #### [facility] [address] [address] [address] Jeffrey Thomas EGFR-NON AF [place] 53 mL/min/1.73m2 Critically low >=60 [facility] Comment on above: Performed By: #### C MP #### [facility] [address] [address] [address] Jeffrey Thomas Globulin (S) [Mass/Vol] 3.1 g/dL Normal [facility] Comment on above: Performed By: #### C MP #### [facility] [address] [address] [address] Jeffrey Thomas Glucose [Mass/Vol] 117 mg/dL Critically high 74-106 [facility] Comment on above: Performed By: #### C MP #### [facility] [address] [address] [address] Jeffrey Thomas Potassium [Moles/Vol] 4.3 mmol/L Normal 3.5-5.1 [facility] Comment on above: Performed By: #### C MP #### [facility] [address] [address] [address] Jeffrey Thomas Protein [Mass/Vol] 6.3 g/dL Critically low 6.4-8.2 [facility] Comment on above: Performed By: #### C MP #### [facility] [address] [address] [address] Jeffrey Thomas Sodium [Moles/Vol] 140 mmol/L Normal 136-145 [facility] Comment on above: Performed By: #### C MP #### [facility] [address] [address] [address] Jeffrey Thomas Urea nitrogen [Mass/Vol] 20.0 mg/dL Critically high 7.0-18.0 [facility] Comment on above: Performed By: #### C MP #### [facility] [address] [place] [address] Dr. Jeffrey Thomas Urea nitrogen/Creatinine [Mass ratio] 19.0 mg/mg Normal [facility] Comment on above: Performed By: #### C MP #### [facility] [address] [place] [address] Dr. Jeffrey Thomas PROTIMEon 05-22-2022 INR Coag (PPP) [Relative time] 0.99 {INR} Normal [facility] Comment on above: Performed By: #### C MP #### [facility] [address] [place] [address] Dr. Jeffrey Thomas INR GUIDELINES SEE BELOW Normal [facility] Comment on above: Result Comment: MERARI RED INR: 2.0 - 3.0 CONDITIONS NOT LISTED BELOW 2.5 - 3.5 FOR PROSTHETIC HEART VALVE REPLACEMENT 2.5 - 3.5 RECURRENT THROMBOSIS Performed By: #### C MP #### [facility] [address] [place] [address] Dr. Jeffrey Thomas PT Coag (PPP) [Time] 10.5 s Normal 9.0-11.6 [facility] Comment on above: Performed By: #### C MP #### [facility] [address] [place] [address] Dr. Jeffrey Thomas PTTon 05-22-2022 aPTT Coag (Bld) [Time] 25.9 s Normal 22.3-36.2 [facility] Comment on above: Performed By: #### C MP #### [facility] [address] [address] [address] Jeffrey Thomas TROPONIN, HIGH SENSITIVITYon 05-22-2022 HSTROP 6.1 pg/mL Normal 4.0-51.3 [facility] Comment on above: Result Comment: CUT- OFF POINTS HAVE BEEN ESTABLISHED BASED ON THE FOURTH UNIVERSAL DEFINITIONS OF MYOCARDIAL INFARCTION. THE UPPER REFERENCE LIMIT (URL) OF TROPONIN, DEFINED THE 99TH PERCENTILE OF cTnI DISTRIBUTION IN A REFERENCE POPULATION, HAS BEEN CONFIRMED THE DECISION THRESHOLD FOR ME DIAGNOSIS. Performed By: #### C MP #### [facility] [address] [address] [address] Jeffrey Thomas US SINGLE QUAD RT [...] ABDIAS WEN Date: 2022-05-22 17:32 Normal [facility] XR CHEST 1 Von 05-22-2022 [...] MELLY SEO Date: 2022-05-22 15:32 Normal [facility] PT Coag (PPP) [Time]on 05-04 INR Coag (PPP) [Relative time] 1.7 {INR} Normal <=5.0 [facility] Comment on above: Result Comment: The recommended therapeutic INR range for most cardiac indications is 2.0-3.0 For high intensity therapy (i.e. mechanical heart valves), the recommended range is 2.5-3.5 Performed By: #### 5 902-2 #### [facility] [address] [place] [address] Prothrombin timeon 3 PT Coag (PPP) [Time] 18.8 s High 11.9-14.7 [facility] Comment on above: Performed By: #### 5 902-2 #### [facility] [address] [place] [address] Basic metabolic 2000 panelon 05-03-2022 Anion gap [Moles/Vol] 8 mmol/L Normal 6-18 [facility] Comment on above: Performed By: #### 2 4321-2 #### [facility] [address] [place] [address] Calcium [Mass/Vol] 8.6 mg/dL Low 8.9-10.3 [facility] Comment on above: Performed By: #### 2 1-2 #### [facility] [place] [facility] [address] [place] [address] Chloride [Moles/Vol] 109 mmol/L High 98-107 [facility] Comment on above: Performed By: #### 2 4321-2 #### [facility] [place] [facility] [address] [place] [address] CO2 [Moles/Vol] 25 mmol/L Normal 22-32 [facility] Comment on above: Performed By: #### 2 4321-2 #### [facility] [place] [facility] [address] [place] [address] Creatinine [Mass/Vol] 1.07 mg/dL Normal 0.60-1.30 [facility] Comment on above: Performed By: #### 2 4321-2 #### [facility] [place] ([facility] [address] [place] [address] GFR/1.73 sq M.predicted among non-blacks MDRD (S/P/Bld) [Vol rate/Area] 58 mL/min/{1.73_m2} Low >=60 [facility] Comment on above: Result Comment: Effe ctive January 08, 2022, calculation based on the?Chronic Kidney Disease Epidemiology Collaboration (CKD-EPI) equation refit?without adjustment for race. Performed By: #### 2 4321-2 #### [facility] [place] [facility] [address] [place] [address] Glucose [Mass/Vol] 78 mg/dL Normal 70-99 [facility] Comment on above: Performed By: #### 2 4321-2 #### [facility] [place] [facility] [address] [place] [address] Potassium [Moles/Vol] 5.1 mmol/L Normal 3.6-5.1 [facility] Comment on above: Performed By: #### 2 4321-2 #### [facility] [place] [facility] [address] [place] [address] Sodium [Moles/Vol] 142 mmol/L Normal 136-145 [facility] Comment on above: Performed By: #### 2 4321-2 #### [facility] [place] ([facility] [address] [place] [address] Urea nitrogen [Mass/Vol] 35 mg/dL High 8-20 [facility] Comment on above: Performed By: #### 2 4321-2 #### [facility] [place] [facility] [address] [place] [address] Urea nitrogen/Creatinine [Mass ratio] 32.7 mg/mg High 12.0-20.0 [facility] Comment on above: Performed By: #### 2 4321-2 #### [facility] [place] [facility] [address] [place] [address] Hemogram and platelets WO di fferential panel (Bld)on 05-03-2022 Erythrocyte distribution width (RBC) [Ratio] 16.4 % High 11.0-14.8 [facility] Comment on above: Performed By: #### 2 4321-2 #### [facility] [place] [facility] [facility] [address] [place] [address] 79862 Hematocrit (Bld) [Volume fraction] 33.4 % Low 34.3-47.9 [facility] Comment on above: Performed By: #### 2 4321-2 #### [facility] [place] ([facility] [address] [place] [address] 99028 Hemoglobin (Bld) [Mass/Vol] 10.0 g/dL Low 12.0-16.0 [facility] Comment on above: Performed By: #### 2 4321-2 #### [facility] [place] [address] [place] [address] 74738 MCH 27.2 pcg Normal 27.0-34.0 [facility] Comment on above: Performed By: #### 2 4321-2 #### [facility] [place] [address] [place] [address] 19952 MCHC (RBC) [Mass/Vol] 29.9 g/dL Low 30.8-35.3 [facility] Comment on above: Performed By: #### 2 4321-2 #### [facility] [place] [address] [place] [address] 49745 MCV (RBC) [Entitic vol] 91.0 fL Normal 80.0-97.0 [facility] Comment on above: Performed By: #### 2 4321-2 #### [facility] [place] [address] [place] [address] 79147 Platelet mean volume (Bld) [Entitic vol] 11.6 fL Normal 6.2-12.1 [facility] Comment on above: Performed By: #### 2 4321-2 #### [facility] [place] [address] [place] [address] 24289 Platelets (Bld) [#/Vol] 283 10*3/uL Normal 142-424 [facility] Comment on above: Performed By: #### 2 4321-2 #### [facility] [place] [address] [place] [address] 89798 RBC (Bld) [#/Vol] 3.67 10*6/uL Low 3.74-5.34 [facility] Comment on above: Performed By: #### 2 4321-2 #### [facility] [place] [address] [place] [address] 47315 WBC (Bld) [#/Vol] 5.5 10*3/uL Normal 4.6-10.2 [facility] Comment on above: Performed By: #### 2 4321-2 #### [facility] [place] [address] [place] [address] 38083 PT Coag (PPP) [Time]on 05-03 INR Coag (PPP) [Relative time] 1.6 {INR} Normal <=5.0 [facility] Comment on above: Result Comment: The recommended therapeutic INR range for most cardiac indications is 2.0-3.0 For high intensity therapy (i.e. mechanical heart valves), the recommended range is 2.5-3.5 Performed By: #### 5 902-2 #### [facility] [place] [address] [place] [address] Prothrombin timeon 3 PT Coag (PPP) [Time] 17.7 s High 11.9-14.7 [facility] Comment on above: Performed By: #### 5 902-2 #### [facility] [place] [facility] [address] [place] [address] Nuclear IgG IA Ql (S)on 04-04 Bacteria identified Cx Nom (U) 1 ORGANISM 202 Abnormal >249675 CFU/mL Escherichia coli The organism value for [...] Islt <=20 ug/ml Susceptible Invalid Interpretation Code [facility] Comment on above: Performed By: #### 2 4321-2 #### [facility] ([facility] [address] [place] [address] Bacteria, Urine Many Abnormal None [facility] Comment on above: Performed By: #### 2 4321-2 #### [facility] [address] [place] [address] Bilirubin, Urine Negative Normal Negative [facility] Comment on above: Performed By: #### 2 4321-2 #### [facility] [place] [address] [place] [address] Blood, Urine 3+ Abnormal Negative [facility] Comment on above: Performed By: #### 2 4321-2 #### [facility] [place] [address] [place] [address] Clarity (U) Slightly Cloudy Abnormal Clear [facility] Comment on above: Performed By: #### 2 4321-2 #### [facility] [address] [place] [address] Color (U) Renata Abnormal Yellow [facility] Comment on above: Performed By: #### 2 4321-2 #### [facility] [place] [facility] [address] [place] [address] Glucose Ql (U) Normal Normal Normal [facility] Comment on above: Performed By: #### 2 1-2 #### [facility] [address] [place] [address] Ketones Ql (U) Negative Normal Negative [facility] Comment on above: Performed By: #### 2 1-2 #### [facility] [address] [place] [address] Leukocytes, Urine 250 WBCs/mcL Abnormal Negative [facility] Comment on above: Performed By: #### 2 4321-2 #### [facility] [address] [place] [address] Mucus, UA Rare Abnormal None [facility] Comment on above: Performed By: #### 2 4321-2 #### [facility] [address] [place] [address] Nitrite, Urine Negative Normal Negative [facility] Comment on above: Performed By: #### 2 1-2 #### [facility] [place] [facility] [address] [place] [address] pH (U) 6.0 [pH] Normal 5.0-8.0 [facility] Comment on above: Performed By: #### 2 4321-2 #### [facility] ([facility] [address] [place] [address] Protein (U) [Mass/Vol] 30 mg/dL Abnormal Negative [facility] Comment on above: Performed By: #### 2 4321-2 #### [facility] ([facility] [address] [place] [address] 39340 RBC LM.HPF (Urine sed) [#/Area] 362 /[HPF] High 0-5 [facility] Comment on above: Performed By: #### 2 4321-2 #### [facility] ([facility] [address] [place] [address] 46498 Specific [place] Urine 1.012 Normal 1.002-1.030 [facility] Comment on above: Performed By: #### 2 4321-2 #### [facility] ([facility] [address] [place] [address] 03657 Squamous Epithelial, Urine Rare Abnormal None [facility] Comment on above: Performed By: #### 2 4321-2 #### [facility] [address] [place] [address] 21260 Urobilinogen, Urine Normal Normal Normal [facility] Comment on above: Performed By: #### 2 4321-2 #### [facility] [address] [place] [address] 23458 WBC LM.HPF (Urine sed) [#/Area] 47 /[HPF] High 0-5 [facility] Comment on above: Performed By: #### 2 4321-2 #### [facility] [address] [place] [address] 61639 PT Coag (PPP) [Time]on 05-02 INR Coag (PPP) [Relative time] 1.4 {INR} Normal <=5.0 [facility] Comment on above: Result Comment: The recommended therapeutic INR range for most cardiac indications is 2.0-3.0 For high intensity therapy (i.e. mechanical heart valves), the recommended range is 2.5-3.5 Performed By: #### 5 902-2 #### [facility] [place] [facility] [address] [place] [address] Prothrombin timeon 3 PT Coag (PPP) [Time] 15.9 s High 11.9-14.7 [facility] Comment on above: Performed By: #### 5 902-2 #### [facility] [place] [facility] [address] [place] [address] 92058 Basic metabolic 2000 panelon 05-01-2022 Anion gap [Moles/Vol] 8 mmol/L Normal 6-18 [facility] Comment on above: Performed By: #### 5 902-2 #### [facility] [place] [facility] [address] [place] [address] 97502 Calcium [Mass/Vol] 8.6 mg/dL Low 8.9-10.3 [facility] Comment on above: Performed By: #### 5 902-2 #### [facility] [place] [facility] [address] [place] [address] 58114 Chloride [Moles/Vol] 108 mmol/L High 98-107 [facility] Comment on above: Performed By: #### 5 902-2 #### [facility] [place] [facility] [address] [place] [address] 32135 CO2 [Moles/Vol] 25 mmol/L Normal 22-32 [facility] Comment on above: Performed By: #### 5 902-2 #### [facility] [place] [facility] [address] [place] [address] 44777 Creatinine [Mass/Vol] 0.97 mg/dL Normal 0.60-1.30 [facility] Comment on above: Performed By: #### 5 902-2 #### [facility] [address] [place] [address] 34509 GFR/1.73 sq M.predicted among non-blacks MDRD (S/P/Bld) [Vol rate/Area] 65 mL/min/{1.73_m2} Normal >=60 [facility] Comment on above: Result Comment: Effe ctive January 08, 2022, calculation based on the?Chronic Kidney Disease Epidemiology Collaboration (CKD-EPI) equation refit?without adjustment for race. Performed By: #### 5 902-2 #### [facility] [place] [facility] [address] [place] [address] 29708 Glucose [Mass/Vol] 82 mg/dL Normal 70-99 [facility] Comment on above: Performed By: #### 5 902-2 #### [facility] [address] [place] [address] 04274 Potassium [Moles/Vol] 4.5 mmol/L Normal 3.6-5.1 [facility] Comment on above: Performed By: #### 5 902-2 #### [facility] [place] [facility] [address] [place] [address] 27208 Sodium [Moles/Vol] 141 mmol/L Normal 136-145 [facility] Comment on above: Performed By: #### 5 902-2 #### [facility] [address] [place] [address] 01465 Urea nitrogen [Mass/Vol] 34 mg/dL High 8-20 [facility] Comment on above: Performed By: #### 5 902-2 #### [facility] [place] [facility] [address] [place] [address] 44060 Urea nitrogen/Creatinine [Mass ratio] 35.1 mg/mg High 12.0-20.0 [facility] Comment on above: Performed By: #### 5 902-2 #### [facility] [place] [facility] [address] [place] [address] 78190 Hemogram and platelets WO di fferential panel (Bld)on 05-01-2022 Erythrocyte distribution width (RBC) [Ratio] 16.5 % High 11.0-14.8 [facility] Comment on above: Performed By: #### 2 1-2 #### [facility] [address] [place] [address] 94269 Hematocrit (Bld) [Volume fraction] 33.7 % Low 34.3-47.9 [facility] Comment on above: Performed By: #### 2 4321-2 #### [facility] [address] [place] [address] 75158 Hemoglobin (Bld) [Mass/Vol] 10.3 g/dL Low 12.0-16.0 [facility] Comment on above: Performed By: #### 2 1-2 #### [facility] [address] [place] [address] 27017 MCH 28.1 pcg Normal 27.0-34.0 [facility] Comment on above: Performed By: #### 2 4320-2 #### [facility] [address] [place] [address] 25774 MCHC (RBC) [Mass/Vol] 30.6 g/dL Low 30.8-35.3 [facility] Comment on above: Performed By: #### 2 1-2 #### [facility] [address] [place] [address] 15291 MCV (RBC) [Entitic vol] 92.1 fL Normal 80.0-97.0 [facility] Comment on above: Performed By: #### 2 1-2 #### [facility] [address] [place] [address] 82636 Platelet mean volume (Bld) [Entitic vol] 11.6 fL Normal 6.2-12.1 [facility] Comment on above: Performed By: #### 2 1-2 #### [facility] [address] [place] [address] 93068 Platelets (Bld) [#/Vol] 275 10*3/uL Normal 142-424 [facility] Comment on above: Performed By: #### 2 1-2 #### [facility] [address] [place] [address] 64637 RBC (Bld) [#/Vol] 3.66 10*6/uL Low 3.74-5.34 [facility] Comment on above: Performed By: #### 2 4321-2 #### [facility] [address] [place] [address] 35975 WBC (Bld) [#/Vol] 5.9 10*3/uL Normal 4.6-10.2 [facility] Comment on above: Performed By: #### 2 4321-2 #### [facility] [address] [place] [address] 82627 PT Coag (PPP) [Time]on 05-01 INR Coag (PPP) [Relative time] 1.3 {INR} Normal <=5.0 [facility] Comment on above: Result Comment: The recommended therapeutic INR range for most cardiac indications is 2.0-3.0 For high intensity therapy (i.e. mechanical heart valves), the recommended range is 2.5-3.5 Performed By: #### 2 4321-2 #### [facility] ([facility] [address] [place] [address] 83736 Prothrombin timeon PT Coag (PPP) [Time] 15.6 s High 11.9-14.7 [facility] Comment on above: Performed By: #### 2 4321-2 #### [facility] [address] [place] [address] 51050 PT Coag (PPP) [Time]on 04-30 INR Coag (PPP) [Relative time] 1.4 {INR} Normal <=5.0 [facility] Comment on above: Result Comment: The recommended therapeutic INR range for most cardiac indications is 2.0-3.0 For high intensity therapy (i.e. mechanical heart valves), the recommended range is 2.5-3.5 Performed By: #### 5 902-2 #### [facility] [address] [place] [address] 58257 Prothrombin timeon PT Coag (PPP) [Time] 16.0 s High 11.9-14.7 [facility] Comment on above: Performed By: #### 5 902-2 #### [facility] [address] [place] [address] 22033 Basic metabolic 2000 panelon 04-29-2022 Anion gap [Moles/Vol] 6 mmol/L Normal 6-18 [facility] Comment on above: Performed By: #### 5 902-2 #### [facility] [address] [place] [address] 83321 Calcium [Mass/Vol] 8.7 mg/dL Low 8.9-10.3 [facility] Comment on above: Performed By: #### 5 902-2 #### [facility] [address] [place] [address] 61513 Chloride [Moles/Vol] 103 mmol/L Normal 98-107 [facility] Comment on above: Performed By: #### 5 902-2 #### [facility] [address] [place] [address] 32215 CO2 [Moles/Vol] 28 mmol/L Normal 22-32 [facility] Comment on above: Performed By: #### 5 902-2 #### [facility] [address] [place] [address] 10865 Creatinine [Mass/Vol] 1.14 mg/dL Normal 0.60-1.30 [facility] Comment on above: Performed By: #### 5 902-2 #### [facility] [address] [place] [address] 91784 GFR/1.73 sq M.predicted among non-blacks MDRD (S/P/Bld) [Vol rate/Area] 54 mL/min/{1.73_m2} Low >=60 [facility] Comment on above: Result Comment: Effe ctive January 08, 2022, calculation based on the?Chronic Kidney Disease Epidemiology Collaboration (CKD-EPI) equation refit?without adjustment for race. Performed By: #### 5 902-2 #### [facility] [address] [place] [address] 76634 Glucose [Mass/Vol] 90 mg/dL Normal 70-99 [facility] Comment on above: Performed By: #### 5 902-2 #### [facility] [address] [place] [address] 44133 Potassium [Moles/Vol] 4.8 mmol/L Normal 3.6-5.1 [facility] Comment on above: Performed By: #### 5 902-2 #### [facility] [address] [place] [address] 90173 Sodium [Moles/Vol] 137 mmol/L Normal 136-145 [facility] Comment on above: Performed By: #### 5 902-2 #### [facility] [address] [place] [address] 45618 Urea nitrogen [Mass/Vol] 35 mg/dL High 8-20 [facility] Comment on above: Performed By: #### 5 902-2 #### [facility] [address] [place] [address] 30688 Urea nitrogen/Creatinine [Mass ratio] 30.7 mg/mg High 12.0-20.0 [facility] Comment on above: Performed By: #### 5 902-2 #### [facility] [address] [place] [address] 93308 PT Coag (PPP) [Time]on 04-29 INR Coag (PPP) [Relative time] 1.4 {INR} Normal <=5.0 [facility] Comment on above: Result Comment: The recommended therapeutic INR range for most cardiac indications is 2.0-3.0 For high intensity therapy (i.e. mechanical heart valves), the recommended range is 2.5-3.5 Performed By: #### 5 902-2 #### [facility] ([facility] [address] [place] [address] Prothrombin timeon 3 PT Coag (PPP) [Time] 16.5 s High 11.9-14.7 [facility] Comment on above: Performed By: #### 5 902-2 #### [facility] [place] [facility] [address] [place] [address] 22968 PT Coag (PPP) [Time]on 04-28 INR Coag (PPP) [Relative time] 1.3 {INR} Normal <=5.0 [facility] Comment on above: Result Comment: The recommended therapeutic INR range for most cardiac indications is 2.0-3.0 For high intensity therapy (i.e. mechanical heart valves), the recommended range is 2.5-3.5 Performed By: #### 5 902-2 #### [facility] [address] [place] [address] 22789 Prothrombin timeon 3 PT Coag (PPP) [Time] 15.6 s High 11.9-14.7 [facility] Comment on above: Performed By: #### 5 902-2 #### [facility] [address] [place] [address] 73032 Basic metabolic 2000 panelon 04-27-2022 Anion gap [Moles/Vol] 10 mmol/L Normal 6-18 [facility] Comment on above: Performed By: #### 2 4321-2 #### [facility] [address] [place] [address] 68731 Calcium [Mass/Vol] 8.4 mg/dL Low 8.9-10.3 [facility] Comment on above: Performed By: #### 2 4321-2 #### [facility] [address] [place] [address] 98142 Chloride [Moles/Vol] 105 mmol/L Normal 98-107 [facility] Comment on above: Performed By: #### 2 4321-2 #### [facility] [address] [place] [address] CO2 [Moles/Vol] 22 mmol/L Normal 22-32 [facility] Comment on above: Performed By: #### 2 4321-2 #### [facility] [place] [facility] [address] [place] [address] Creatinine [Mass/Vol] 1.12 mg/dL Normal 0.60-1.30 [facility] Comment on above: Performed By: #### 2 4321-2 #### [facility] [address] [place] [address] GFR/1.73 sq M.predicted among non-blacks MDRD (S/P/Bld) [Vol rate/Area] 55 mL/min/{1.73_m2} Low >=60 [facility] Comment on above: Result Comment: Effe ctive January 08, 2022, calculation based on the?Chronic Kidney Disease Epidemiology Collaboration (CKD-EPI) equation refit?without adjustment for race. Performed By: #### 2 4321-2 #### [facility] [place] [facility] [address] [place] [address] Glucose [Mass/Vol] 82 mg/dL Normal 70-99 [facility] Comment on above: Performed By: #### 2 4321-2 #### [facility] [place] [facility] [address] [place] [address] Potassium [Moles/Vol] 5.6 mmol/L High 3.6-5.1 [facility] Comment on above: Performed By: #### 2 4321-2 #### [facility] [place] [facility] [address] [place] [address] Sodium [Moles/Vol] 137 mmol/L Normal 136-145 [facility] Comment on above: Performed By: #### 2 4321-2 #### [facility] [place] [facility] [address] [place] [address] Urea nitrogen [Mass/Vol] 35 mg/dL High 8-20 [facility] Comment on above: Performed By: #### 2 4321-2 #### [facility] [address] [place] [address] 38247 Urea nitrogen/Creatinine [Mass ratio] 31.3 mg/mg High 12.0-20.0 [facility] Comment on above: Performed By: #### 2 4321-2 #### [facility] ([facility] [address] [place] [address] 03091 PT Coag (PPP) [Time]on 04-27 INR Coag (PPP) [Relative time] 1.2 {INR} Normal <=5.0 [facility] Comment on above: Result Comment: The recommended therapeutic INR range for most cardiac indications is 2.0-3.0 For high intensity therapy (i.e. mechanical heart valves), the recommended range is 2.5-3.5 Performed By: #### 5 902-2 #### [facility] [address] [place] [id number] Prothrombin timeon 3 PT Coag (PPP) [Time] 14.5 s Normal 11.9-14.7 [facility] Comment on above: Performed By: #### 5 902-2 #### [facility] [address] [place] [id number] PT Coag (PPP) [Time]on 04-26 INR Coag (PPP) [Relative time] 1.2 {INR} Normal <=5.0 [facility] Comment on above: Result Comment: The recommended therapeutic INR range for most cardiac indications is 2.0-3.0 For high intensity therapy (i.e. mechanical heart valves), the recommended range is 2.5-3.5 Performed By: #### 2 4321-2 #### [facility] [address] [place] [id number] Prothrombin timeon 3 PT Coag (PPP) [Time] 14.3 s Normal 11.9-14.7 [facility] Comment on above: Performed By: #### 2 4321-2 #### [facility] [place] [facility] [address] [place] [address] Basic metabolic 2000 panelon 04-25-2022 Anion gap [Moles/Vol] 7 mmol/L Normal 6-18 [facility] Comment on above: Performed By: #### 2 4321-2 #### [facility] [address] [place] [id number] Calcium [Mass/Vol] 8.5 mg/dL Low 8.9-10.3 [facility] Comment on above: Performed By: #### 2 4321-2 #### [facility] [place] [facility] [address] [place] [address] [id number] Chloride [Moles/Vol] 104 mmol/L Normal 98-107 [facility] [facility] Comment on above: Performed By: #### 2 4321-2 #### [facility] [place] ([facility] [address] [place] [address] 67956 CO2 [Moles/Vol] 30 mmol/L Normal 22-32 [facility] Comment on above: Performed By: #### 2 4321-2 #### [facility] [place] ([facility] [address] [place] [address] 64157 Creatinine [Mass/Vol] 1.00 mg/dL Normal 0.60-1.30 [facility] Comment on above: Performed By: #### 2 4321-2 #### [facility] [place] [facility] [address] [place] [address] 81869 GFR/1.73 sq M.predicted among non-blacks MDRD (S/P/Bld) [Vol rate/Area] 63 mL/min/{1.73_m2} Normal >=60 [facility] Comment on above: Result Comment: Effe ctive January 08, 2022, calculation based on the?Chronic Kidney Disease Epidemiology Collaboration (CKD-EPI) equation refit?without adjustment for race. Performed By: #### 2 4321-2 #### [facility] [place] [facility] [address] [place] [address] 51547 Glucose [Mass/Vol] 89 mg/dL Normal 70-99 [facility] Comment on above: Performed By: #### 2 4321-2 #### [facility] [place] [facility] [address] [place] [address] Potassium [Moles/Vol] 5.2 mmol/L High 3.6-5.1 [facility] Comment on above: Performed By: #### 2 4321-2 #### [facility] [address] [place] [address] 64003 Sodium [Moles/Vol] 141 mmol/L Normal 136-145 [facility] Comment on above: Performed By: #### 2 4321-2 #### [facility] ([facility] [address] [place] [address] 15434 Urea nitrogen [Mass/Vol] 25 mg/dL High 8-20 [facility] Comment on above: Performed By: #### 2 4321-2 #### [facility] [address] [place] [address] 22218 Urea nitrogen/Creatinine [Mass ratio] 25.0 mg/mg High 12.0-20.0 [facility] Comment on above: Performed By: #### 2 4321-2 #### [facility] [place] [facility] [address] [place] [address] 22796 PT Coag (PPP) [Time]on 04-25 INR Coag (PPP) [Relative time] 1.2 {INR} Normal <=5.0 [facility] Comment on above: Result Comment: The recommended therapeutic INR range for most cardiac indications is 2.0-3.0 For high intensity therapy (i.e. mechanical heart valves), the recommended range is 2.5-3.5 Performed By: #### 5 902-2 #### [facility] [address] [place] [address] 36809 Prothrombin timeon PT Coag (PPP) [Time] 14.0 s Normal 11.9-14.7 [facility] Comment on above: Performed By: #### 5 902-2 #### [facility] [place] [facility] [address] [place] [address] Basic metabolic 2000 panelon 04-24-2022 Anion gap [Moles/Vol] 7 mmol/L Normal 6-18 [facility] Comment on above: Performed By: #### 2 4321-2 #### [facility] [address] [place] [address] 08810 Calcium [Mass/Vol] 8.7 mg/dL Low 8.9-10.3 [facility] Comment on above: Performed By: #### 2 4321-2 #### [facility] [address] [place] [address] 51557 Chloride [Moles/Vol] 106 mmol/L Normal 98-107 [facility] Comment on above: Performed By: #### 2 4321-2 #### [facility] [address] [place] [address] 12345 CO2 [Moles/Vol] 28 mmol/L Normal 22-32 [facility] Comment on above: Performed By: #### 2 4321-2 #### [facility] [address] [place] [address] 22832 Creatinine [Mass/Vol] 1.14 mg/dL Normal 0.60-1.30 [facility] Comment on above: Performed By: #### 2 4321-2 #### [facility] [address] [place] [address] 55495 GFR/1.73 sq M.predicted among non-blacks MDRD (S/P/Bld) [Vol rate/Area] 54 mL/min/{1.73_m2} Low >=60 [facility] Comment on above: Result Comment: Effe ctive January 08, 2022, calculation based on the?Chronic Kidney Disease Epidemiology Collaboration (CKD-EPI) equation refit?without adjustment for race. Performed By: #### 2 4321-2 #### [facility] ([facility] [address] [place] [address] Glucose [Mass/Vol] 95 mg/dL Normal 70-99 [facility] Comment on above: Performed By: #### 2 4321-2 #### [facility] [address] [place] [address] Potassium [Moles/Vol] 5.3 mmol/L High 3.6-5.1 [facility] Comment on above: Performed By: #### 2 4321-2 #### [facility] [address] [place] [address] 75352 Sodium [Moles/Vol] 141 mmol/L Normal 136-145 [facility] Comment on above: Performed By: #### 2 4321-2 #### [facility] [address] [place] [address] 78551 Urea nitrogen [Mass/Vol] 25 mg/dL High 8-20 [facility] Comment on above: Performed By: #### 2 4321-2 #### [facility] [address] [place] [address] 21915 Urea nitrogen/Creatinine [Mass ratio] 21.9 mg/mg High 12.0-20.0 [facility] Comment on above: Performed By: #### 2 4321-2 #### [facility] [address] [place] [address] 14604 Hemogram and platelets WO di fferential panel (Bld)on 04-24-2022 Erythrocyte distribution width (RBC) [Ratio] 16.9 % High 11.0-14.8 [facility] Comment on above: Performed By: #### 2 4317-0 #### [facility] [address] [place] [address] 77781 Hematocrit (Bld) [Volume fraction] 35.3 % Normal 34.3-47.9 [facility] Comment on above: Performed By: #### 2 4317-0 #### [facility] [address] [place] [address] 63819 Hemoglobin (Bld) [Mass/Vol] 10.9 g/dL Low 12.0-16.0 [facility] Comment on above: Performed By: #### 2 4317-0 #### [facility] [address] [place] [address] 31970 Immature Platelet Fraction 14.0 % High 1.4-10.8 [facility] Comment on above: Performed By: #### 2 4317-0 #### [facility] [address] [place] [address] 40178 MCH 28.9 pcg Normal 27.0-34.0 [facility] Comment on above: Performed By: #### 2 4317-0 #### [facility] [address] [place] [address] 95603 MCHC (RBC) [Mass/Vol] 30.9 g/dL Normal 30.8-35.3 [facility] Comment on above: Performed By: #### 2 4317-0 #### [facility] [address] [place] [address] 87659 MCV (RBC) [Entitic vol] 93.6 fL Normal 80.0-97.0 [facility] Comment on above: Performed By: #### 2 4317-0 #### [facility] [address] [place] [address] 77708 Platelet mean volume (Bld) [Entitic vol] 12.9 fL High 6.2-12.1 [facility] Comment on above: Performed By: #### 2 4317-0 #### [facility] [address] [place] [address] 38182 Platelets (Bld) [#/Vol] 160 10*3/uL Normal 142-424 [facility] Comment on above: Performed By: #### 2 4317-0 #### [facility] [address] [place] [address] 96373 RBC (Bld) [#/Vol] 3.77 10*6/uL Normal 3.74-5.34 [facility] Comment on above: Performed By: #### 2 4317-0 #### [facility] [address] [place] [address] 44402 WBC (Bld) [#/Vol] 7.7 10*3/uL Normal 4.6-10.2 [facility] Comment on above: Performed By: #### 2 4317-0 #### [facility] [address] [place] [address] 19020 PT Coag (PPP) [Time]on 04-24 INR Coag (PPP) [Relative time] 1.1 {INR} Normal <=5.0 [facility] Comment on above: Result Comment: The recommended therapeutic INR range for most cardiac indications is 2.0-3.0 For high intensity therapy (i.e. mechanical heart valves), the recommended range is 2.5-3.5 Performed By: #### 2 4321-2 #### [facility] [address] [place] [address] 23436 Prothrombin timeon PT Coag (PPP) [Time] 13.9 s Normal 11.9-14.7 [facility] Comment on above: Performed By: #### 2 4321-2 #### [facility] [address] [place] [address] 83178 Basic metabolic 2000 panelon 04-23-2022 Anion gap [Moles/Vol] 8 mmol/L Normal 6-18 [facility] Comment on above: Performed By: #### 2 4321-2 #### [facility] ([facility] [address] [place] [address] 86798 Calcium [Mass/Vol] 8.5 mg/dL Low 8.9-10.3 [facility] Comment on above: Performed By: #### 2 4321-2 #### [facility] ([facility] [address] [place] [address] 28304 Chloride [Moles/Vol] 106 mmol/L Normal 98-107 [facility] Comment on above: Performed By: #### 2 4321-2 #### [facility] [address] [place] [address] 05802 CO2 [Moles/Vol] 28 mmol/L Normal 22-32 [facility] Comment on above: Performed By: #### 2 4321-2 #### [facility] [address] [place] [address] 69470 Creatinine [Mass/Vol] 1.01 mg/dL Normal 0.60-1.30 [facility] Comment on above: Performed By: #### 2 4321-2 #### [facility] [address] [place] [address] 42449 GFR/1.73 sq M.predicted among non-blacks MDRD (S/P/Bld) [Vol rate/Area] 62 mL/min/{1.73_m2} Normal >=60 [facility] Comment on above: Result Comment: Effe ctive January 08, 2022, calculation based on the?Chronic Kidney Disease Epidemiology Collaboration (CKD-EPI) equation refit?without adjustment for race. Performed By: #### 2 4321-2 #### [facility] [address] [place] [address] 16578 Glucose [Mass/Vol] 108 mg/dL High 70-99 [facility] Comment on above: Performed By: #### 2 4321-2 #### [facility] [address] [place] [address] 45422 Potassium [Moles/Vol] 5.0 mmol/L Normal 3.6-5.1 [facility] Comment on above: Performed By: #### 2 4321-2 #### [facility] [address] [place] [address] 80909 Sodium [Moles/Vol] 142 mmol/L Normal 136-145 [facility] Comment on above: Performed By: #### 2 4321-2 #### [facility] [address] [place] [address] 04740 Urea nitrogen [Mass/Vol] 23 mg/dL High 8-20 [facility] Comment on above: Performed By: #### 2 4321-2 #### [facility] ([facility] [address] [place] [address] 50105 Urea nitrogen/Creatinine [Mass ratio] 22.8 mg/mg High 12.0-20.0 [facility] Comment on above: Performed By: #### 2 4321-2 #### [facility] ([facility] [address] [place] [address] 52216 Hemogram and platelets WO di fferential panel (Bld)on 04-23-2022 Basophils (Bld) [#/Vol] 0.06 10*3/uL Normal 0.00-0.20 [facility] Comment on above: Performed By: #### 2 4321-2 #### [facility] ([facility] [address] [place] [address] 81053 Basophils/100 WBC (Bld) 0.7 % Normal 0.0-2.0 [facility] Comment on above: Performed By: #### 2 4321-2 #### [facility] ([facility] [address] [place] [address] 74523 Eosinophils (Bld) [#/Vol] 0.17 10*3/uL Normal 0.00-0.70 [facility] Comment on above: Performed By: #### 2 4321-2 #### [facility] ([facility] [address] [place] [address] 29738 Eosinophils/100 WBC (Bld) 2.1 % Normal 0.0-7.0 [facility] Comment on above: Performed By: #### 2 4321-2 #### [facility] ([facility] [address] [place] [address] 59666 Erythrocyte distribution width (RBC) [Ratio] 17.0 % High 11.0-14.8 [facility] Comment on above: Performed By: #### 2 4321-2 #### [facility] [address] [place] [address] 18907 Hematocrit (Bld) [Volume fraction] 34.1 % Low 34.3-47.9 [facility] Comment on above: Performed By: #### 2 4321-2 #### [facility] [address] [place] [address] 39250 Hemoglobin (Bld) [Mass/Vol] 10.4 g/dL Low 12.0-16.0 [facility] Comment on above: Performed By: #### 2 1-2 #### [facility] [address] [place] [address] 05359 Immature granulocytes (Bld) [#/Vol] 0.02 10*3/uL Normal 0.00-0.10 [facility] Comment on above: Performed By: #### 2 1-2 #### [facility] [address] [place] [address] 49950 Immature granulocytes/100 WBC (Bld) 0.2 % Normal 0.0-1.2 [facility] Comment on above: Performed By: #### 2 1-2 #### [facility] [address] [place] [address] 03167 Lymphocytes (Bld) [#/Vol] 2.24 10*3/uL Normal 1.00-4.80 [facility] Comment on above: Performed By: #### 2 1-2 #### [facility] [address] [place] [address] 06660 Lymphocytes/100 WBC (Bld) 27.4 % Normal 17.9-49.6 [facility] Comment on above: Performed By: #### 2 1-2 #### [facility] [address] [place] [address] 77616 MCH 28.4 pcg Normal 27.0-34.0 [facility] Comment on above: Performed By: #### 2 4321-2 #### [facility] ([facility] [address] [place] [address] 60456 MCHC (RBC) [Mass/Vol] 30.5 g/dL Low 30.8-35.3 [facility] Comment on above: Performed By: #### 2 4321-2 #### [facility] [address] [place] [address] 59946 MCV (RBC) [Entitic vol] 93.2 fL Normal 80.0-97.0 [facility] Comment on above: Performed By: #### 2 4321-2 #### [facility] [address] [place] [address] 32772 Monocytes (Bld) [#/Vol] 0.98 10*3/uL High 0.00-0.90 [facility] Comment on above: Performed By: #### 2 4321-2 #### [facility] [address] [place] [address] 25136 Monocytes/100 WBC (Bld) 12.0 % Normal 0.0-12.0 [facility] Comment on above: Performed By: #### 2 4321-2 #### [facility] [address] [place] [address] 18556 Neutrophils Absolute 4.71 K/mcL Normal 1.80-7.70 [facility] Comment on above: Performed By: #### 2 4321-2 #### [facility] [address] [place] [address] 75321 Neutrophils/100 WBC (Bld) 57.6 % Normal 38.1-75.5 [facility] Comment on above: Performed By: #### 2 4321-2 #### [facility] [address] [place] [address] 24564 Platelet mean volume (Bld) [Entitic vol] 13.0 fL High 6.2-12.1 [facility] Comment on above: Performed By: #### 2 4321-2 #### [facility] [address] [place] [address] 69743 Platelets (Bld) [#/Vol] 175 10*3/uL Normal 142-424 [facility] Comment on above: Performed By: #### 2 4321-2 #### [facility] [address] [place] [address] RBC (Bld) [#/Vol] 3.66 10*6/uL Low 3.74-5.34 [facility] Comment on above: Performed By: #### 2 4321-2 #### [facility] [address] [place] [address] WBC (Bld) [#/Vol] 8.2 10*3/uL Normal 4.6-10.2 [facility] Comment on above: Performed By: #### 2 4321-2 #### [facility] [address] [place] [address] 69990 PT Coag (PPP) [Time]on 04-23 INR Coag (PPP) [Relative time] 1.1 {INR} Normal <=5.0 [facility] Comment on above: Result Comment: The recommended therapeutic INR range for most cardiac indications is 2.0-3.0 For high intensity therapy (i.e. mechanical heart valves), the recommended range is 2.5-3.5 Performed By: #### 2 4321-2 #### [facility] [address] [place] [address] Prothrombin timeon 3 PT Coag (PPP) [Time] 13.4 s Normal 11.9-14.7 [facility] Comment on above: Performed By: #### 2 4321-2 #### [facility] [address] [place] [address] Basic metabolic 2000 panelon 04-22-2022 Anion gap [Moles/Vol] 6 mmol/L Normal 6-18 [facility] Comment on above: Performed By: #### 1 988-5 #### [facility] [address] [place] [address] Calcium [Mass/Vol] 8.3 mg/dL Low 8.9-10.3 [facility] Comment on above: Performed By: #### 1 988-5 #### [facility] [address] [place] [address] Chloride [Moles/Vol] 107 mmol/L Normal 98-107 [facility] Comment on above: Performed By: #### 1 988-5 #### [facility] [address] [place] [address] CO2 [Moles/Vol] 25 mmol/L Normal 22-32 [facility] Comment on above: Performed By: #### 1 988-5 #### [facility] [address] [place] [address] 98030 Creatinine [Mass/Vol] 1.06 mg/dL Normal 0.60-1.30 [facility] Comment on above: Performed By: #### 1 988-5 #### [facility] [address] [place] [address] GFR/1.73 sq M.predicted among non-blacks MDRD (S/P/Bld) [Vol rate/Area] 59 mL/min/{1.73_m2} Low >=60 [facility] Comment on above: Result Comment: Effe ctive January 08, 2022, calculation based on the?Chronic Kidney Disease Epidemiology Collaboration (CKD-EPI) equation refit?without adjustment for race. Performed By: #### 1 988-5 #### [facility] [address] [place] [address] Glucose [Mass/Vol] 104 mg/dL High 70-99 [facility] Comment on above: Performed By: #### 1 988-5 #### [facility] [address] [place] [address] Potassium [Moles/Vol] 4.7 mmol/L Normal 3.6-5.1 [facility] Comment on above: Performed By: #### 1 988-5 #### [facility] [address] [place] [address] Sodium [Moles/Vol] 138 mmol/L Normal 136-145 [facility] Comment on above: Performed By: #### 1 988-5 #### [facility] [address] [facility] [place] [address] Urea nitrogen [Mass/Vol] 24 mg/dL High 8-20 [facility] Comment on above: Performed By: #### 1 988-5 #### [facility] [address] [place] [address] Urea nitrogen/Creatinine [Mass ratio] 22.6 mg/mg High 12.0-20.0 [facility] Comment on above: Performed By: #### 1 988-5 #### [facility] [address] [place] [address] Anion gap [Moles/Vol] 6 mmol/L 6 - 18 [facility] Calcium [Mass/Vol] 8.3 mg/dL Low 8.9 - 10. 3 mg/dL [facility] Chloride [Moles/Vol] 107 mmol/L 98 - 10 7 mmol/L [facility] CO2 [Moles/Vol] 25 mmol/L 22 - 32 mmol/L [facility] Creatinine [Mass/Vol] 1.06 mg/dL 0.60 - 1.30 mg/dL [facility] GFR/1.73 sq M.predicted among non-blacks MDRD (S/P/Bld) [Vol rate/Area] 59 mL/min/{1.73_m2} Low - PINF [facility] Comment on above: Effective January 08, 2022, calculation based on the Chronic Kidney Disease Epidemiology Collaboration (CKD-EPI) equation refit without adjustment for race. Glucose [Mass/Vol] 104 mg/dL High 70 - 99 mg/dL [facility] Interpretation and review of laboratory results Abnormal [facility] Potassium [Moles/Vol] 4.7 mmol/L 3.6 - 5.1 mmol/L [facility] Sodium [Moles/Vol] 138 mmol/L 136 - 145 mmol/L [facility] Urea nitrogen [Mass/Vol] 24 mg/dL High 8 - 20 mg/dL [facility] Urea nitrogen/Creatinine [Mass ratio] 22.6 mg/mg High 12.0 - 20.0 [facility] Hemogram and platelets WO di fferential panel (Bld)on 04-22-2022 Erythrocyte distribution width (RBC) [Ratio] 16.4 % High 11.0-14.8 [facility] Comment on above: Performed By: #### 1 988-5 #### [facility] [address] [place] [id number] Hematocrit (Bld) [Volume fraction] 35.8 % Normal 34.3-47.9 [facility] Comment on above: Performed By: #### 1 988-5 #### [facility] [address] [place] [address] Hemoglobin (Bld) [Mass/Vol] 10.9 g/dL Low 12.0-16.0 [facility] Comment on above: Performed By: #### 1 988-5 #### [facility] [address] [place] [id number] MCH 28.2 pcg Normal 27.0-34.0 [facility] Comment on above: Performed By: #### 1 988-5 #### [facility] [address] [place] [address] MCHC (RBC) [Mass/Vol] 30.4 g/dL Low 30.8-35.3 [facility] Comment on above: Performed By: #### 1 988-5 #### [facility] [address] [place] [id number] MCV (RBC) [Entitic vol] 92.5 fL Normal 80.0-97.0 [facility] Comment on above: Performed By: #### 1 988-5 #### [facility] [address] [place] [id number] Platelet mean volume (Bld) [Entitic vol] 12.4 fL High 6.2-12.1 [facility] Comment on above: Performed By: #### 1 988-5 #### [facility] [address] [place] [id number] Platelets (Bld) [#/Vol] 158 10*3/uL Normal 142-424 [facility] Comment on above: Performed By: #### 1 988-5 #### [facility] [address] [place] [id number] RBC (Bld) [#/Vol] 3.87 10*6/uL Normal 3.74-5.34 [facility] Comment on above: Performed By: #### 1 988-5 #### [facility] [address] [place] [address] WBC (Bld) [#/Vol] 9.0 10*3/uL Normal 4.6-10.2 [facility] Comment on above: Performed By: #### 1 988-5 #### [facility] [address] [place] [address] Erythrocyte distribution width (RBC) [Ratio] 16.4 % High 11.0 - 14.8 % [facility] Hematocrit (Bld) [Volume fraction] 35.8 % 34.3 - 47.9 % [facility] Hemoglobin (Bld) [Mass/Vol] 10.9 g/dL Low 12.0 - 16.0 g/dL [facility] Interpretation and review of laboratory results Abnormal [facility] MCH (RBC) [Entitic mass] 28.2 pg [facility] MCHC (RBC) [Mass/Vol] 30.4 g/dL Low 30.8 - 35.3 g/dL [facility] MCV (RBC) [Entitic vol] 92.5 fL [facility] Platelet mean volume (Bld) [Entitic vol] 12.4 fL High [facility] th Platelets (Bld) [#/Vol] 158 10*3/uL [facility] RBC (Bld) [#/Vol] 3.87 10*6/uL [facility] ty [facility] WBC (Bld) [#/Vol] 9.0 10*3/uL [facility] Health [facility] PT Coag (PPP) [Time]on 04-22 INR Coag (PPP) [Relative time] 0.9 {INR} Normal <=5.0 [facility] Comment on above: Result Comment: The recommended therapeutic INR range for most cardiac indications is 2.0-3.0 For high intensity therapy (i.e. mechanical heart valves), the recommended range is 2.5-3.5 Performed By: #### 1 988-5 #### [facility] [address] [place] [address] INR Coag (PPP) [Relative time] 0.9 {INR} NINF - 5.0 [facility] Comment on above: The recommended ther apeutic INR range for most cardiac indications is 2.0-3.0 For high intensity therapy (i.e. mechanical heart valves), the recommended range is 2.5-3.5 Interpretation and review of laboratory results Normal [facility] PT Coag (Bld) [Time] 12.6 s [facility] Prothrombin timeon 3 PT Coag (PPP) [Time] 12.6 s Normal 11.9-14.7 Moun t [facility] Comment on above: Performed By: #### 1 988-5 #### [facility] [address] [place] [address] SARS-CoV-2 (COVID-19) RNA NA A+probe Ql (Resp)on 04-22-2022 Interpretation and review of laboratory results Normal [facility] SARS-CoV-2 (COVID-19) RdRp gene REBECCA+probe Ql (Resp) Not detected Not Detected [facility] SARS-CoV-2 RNA Resp Ql REBECCA+p robeon 04-22-2022 SARS-CoV-2 (COVID-19) RNA REBECCA+probe Ql (Resp) Not detected Normal Not Detected [facility] Comment on above: Performed By: #### 5 75-1 #### [facility] [address] [place] [address] Basic metabolic 2000 panelon 04-21-2022 Anion gap [Moles/Vol] 9 mmol/L Normal 6-18 Arin nt [facility] Comment on above: Performed By: #### 1 988-5 #### [facility] [address] [place] [address] Calcium [Mass/Vol] 8.2 mg/dL Low 8.9-10.3 [facility] Comment on above: Performed By: #### 1 988-5 #### [facility] [address] [place] [address] Chloride [Moles/Vol] 108 mmol/L High 98-107 Moun [facility] Comment on above: Performed By: #### 1 988-5 #### [facility] [address] [facility] [place] [address] CO2 [Moles/Vol] 22 mmol/L Normal 22-32 [facility] Comment on above: Performed By: #### 1 988-5 #### [facility] [address] [place] [address] Creatinine [Mass/Vol] 1.19 mg/dL Normal 0.60-1.30 Arin [facility] Comment on above: Performed By: #### 1 988-5 #### [facility] [address] [place] [address] GFR/1.73 sq M.predicted among non-blacks MDRD (S/P/Bld) [Vol rate/Area] 51 mL/min/{1.73_m2} Low >=60 [facility] Comment on above: Result Comment: Effsayda ctive January 08, 2022, calculation based on the?Chronic Kidney Disease Epidemiology Collaboration (CKD-EPI) equation refit?without adjustment for race. Performed By: #### 1 988-5 #### [facility] [address] [place] [address] Glucose [Mass/Vol] 135 mg/dL High 70-99 [facility] Comment on above: Performed By: #### 1 988-5 #### [facility] [address] [place] [address] Potassium [Moles/Vol] 4.6 mmol/L Normal 3.6-5.1 Arin [facility] Comment on above: Performed By: #### 1 988-5 #### [facility] [address] [facility] [place] [address] Sodium [Moles/Vol] 139 mmol/L Normal 136-145 [facility] Comment on above: Performed By: #### 1 988-5 #### [facility] [address] [place] [address] Urea nitrogen [Mass/Vol] 19 mg/dL Normal 8-20 [facility] Comment on above: Performed By: #### 1 988-5 #### [facility] [address] [facility] [place] [address] Urea nitrogen/Creatinine [Mass ratio] 16.0 mg/mg Normal 12.0-20.0 [facility] Comment on above: Performed By: #### 1 988-5 #### [facility] [address] [facility] [place] [address] Anion gap [Moles/Vol] 9 mmol/L 6 - 18 [facility] Calcium [Mass/Vol] 8.2 mg/dL Low 8.9 - 10. 3 mg/dL [facility] Chloride [Moles/Vol] 108 mmol/L High 98 - 10 7 mmol/L [facility] CO2 [Moles/Vol] 22 mmol/L 22 - 32 mmol/L [facility] Creatinine [Mass/Vol] 1.19 mg/dL 0.60 - 1.30 mg/dL [facility] GFR/1.73 sq M.predicted among non-blacks MDRD (S/P/Bld) [Vol rate/Area] 51 mL/min/{1.73_m2} Low - PINF [facility] Comment on above: Effective January 08, 2022, calculation based on the Chronic Kidney Disease Epidemiology Collaboration (CKD-EPI) equation refit without adjustment for race. Glucose [Mass/Vol] 135 mg/dL High 70 - 99 mg/dL [facility] Interpretation and review of laboratory results Abnormal [facility] Potassium [Moles/Vol] 4.6 mmol/L 3.6 - 5.1 mmol/L [facility] Sodium [Moles/Vol] 139 mmol/L 136 - 145 mmol/L [facility] Urea nitrogen [Mass/Vol] 19 mg/dL 8 - 20 mg/dL [facility] Urea nitrogen/Creatinine [Mass ratio] 16.0 mg/mg 12.0 - 20.0 [facility] Hemogram and platelets WO di fferential panel (Bld)on 04-21-2022 Erythrocyte distribution width (RBC) [Ratio] 15.9 % High 11.0-14.8 [facility] Comment on above: Performed By: #### 1 988-5 #### [facility] [address] [place] [address] Hematocrit (Bld) [Volume fraction] 37.0 % Normal 34.3-47.9 [facility] Comment on above: Performed By: #### 1 988-5 #### [facility] [address] [place] [address] Hemoglobin (Bld) [Mass/Vol] 11.6 g/dL Low 12.0-16.0 [facility] Comment on above: Performed By: #### 1 988-5 #### [facility] [address] [place] [address] MCH 28.2 pcg Normal 27.0-34.0 [facility] Comment on above: Performed By: #### 1 988-5 #### [facility] [address] [place] [address] MCHC (RBC) [Mass/Vol] 31.4 g/dL Normal 30.8-35.3 [facility]in [facility] Comment on above: Performed By: #### 1 988-5 #### [facility] [address] [place] [address] MCV (RBC) [Entitic vol] 90.0 fL Normal 80.0-97.0 [facility] Comment on above: Performed By: #### 1 988-5 #### [facility] [address] [place] [address] Platelet mean volume (Bld) [Entitic vol] 12.3 fL High 6.2-12.1 [facility] Comment on above: Performed By: #### 1 988-5 #### [facility] [address] [place] [address] Platelets (Bld) [#/Vol] 220 10*3/uL Normal 142-424 [facility] Comment on above: Performed By: #### 1 988-5 #### [facility] [address] [place] [address] RBC (Bld) [#/Vol] 4.11 10*6/uL Normal 3.74-5.34 [facility] Comment on above: Performed By: #### 1 988-5 #### [facility] [address] [place] [address] WBC (Bld) [#/Vol] 13.5 10*3/uL High 4.6-10.2 [facility] Comment on above: Performed By: #### 1 988-5 #### [facility] ([facility]) [facility] [address] [place] [address] Erythrocyte distribution width (RBC) [Ratio] 15.9 % High 11.0 - 14.8 % [facility] Hematocrit (Bld) [Volume fraction] 37.0 % 34.3 - 47.9 % [facility] Hemoglobin (Bld) [Mass/Vol] 11.6 g/dL Low 12.0 - 16.0 g/dL [facility] Interpretation and review of laboratory results Abnormal [facility] MCH (RBC) [Entitic mass] 28.2 pg [facility] MCHC (RBC) [Mass/Vol] 31.4 g/dL 30.8 - 35.3 g/dL [facility] MCV (RBC) [Entitic vol] 90.0 fL [facility] Platelet mean volume (Bld) [Entitic vol] 12.3 fL High [facility] th Platelets (Bld) [#/Vol] 220 10*3/uL [facility] RBC (Bld) [#/Vol] 4.11 10*6/uL [facility] WBC (Bld) [#/Vol] 13.5 10*3/uL High [facility] Pathology studyOrdered By: Valerie Segura on 04-21-2022 Citation Rick (Reference lab test) f7ozjRFcZNFpmSFfCVUsB OolpxCpKULdvGZfQ3Anoy nzJXygQL8gXS1rgOnwvRS ztNMzGTNyZoMah2iyn498 xGQax8uhGZZLlixpmMn3e 4kbEJWCLSqwFBMJQMn7kW dmX81nn2D1LuhrE9fkSCO bHFrdsuVhffJ4ROQafXNf LCo2KLYigPMjzhBnHnYvN NOvhSYpvKE6UXYwAT0ggm cqAOwuFBlvEMVycjQ1TJJ xzOUtI6ClLSMrDL9eskzy BZJ4SOwrHDTzXJX6UbQgG OCzg4Gltnp7EsCutIZqAN xwbGFpblxpXGYxXGZzMTh oL7CwYBZaTLE8IBLxzwqg QPeqC67lkB8vDN84OZwlh gUpMFYdu8NrSDPwYWWhAX dsPHCxpzMaWPhayE2jb4j 8GUreFr5sFCTikgvaTNE1 DmVpDF38DemwsJZqKTVWv mUsIENvbHVtYnVzLCBPaG ycVZRxMhC2QyRHqBRto1I uo1LlMxSlmAOnfC9ysAme ucK4TNKkoPAlZl9njOYxI lxwYXJ9 [employer] Work Phone: Microscopic description Rick (Endomyocardium) s6mekMChXCGouRBZQKWwY LRaQN7gnGkuxRu9dWkiAA TqpqE0vFShVNkba4hhLAA 4s4xibxPXAqbsZJNfKY1e TLpsXVJrVX8wAzWyJQAhH mYyXHBhcGVydzEyMjQwXH CrxWFzoKY3MHOpKL3aooj nFWppSMwyGIAzcxC1JEZx cDPmX3DxADAeLZ6cwndzW RA0LZHXBvhuRz4hhTWltV ANCntcZjFcZmNoYXJzZXQ gQLWwxOdcZFWcQUh1hT7S b2uzAqjpH7qdavJgkQPrG r1fyMRKLLboDVPXRPp8mT 3FZGNsQ2WnZX3Dl7bpKUY ngGAsLDU2KAxgw6diOTwc YOD9XKNrBERtRECjSG8JM bFwFNVhRxV3AkI2XlN9QG b9QOKIEXZuMSb9PfnvTNm 7VZr7AAdejidrBXp7TVCx KDsrlGGuPH8brYbqEpbsi Gnjj4ExjPXbUNRfLUfckL QgNTEwMDIgXFxkYiBPVlI xOfVnPMq6GSiyWLDyMQh3 PYmkT6XIPCOzZLE4IsZwV BOqLbC4JIl7GGUVVb3zDi I8NdKxHVM5PeK6TFMrEEM cXHQgMiBcXHNzIDMgXFxm rMNfKE6zpJscKOSwIS5WK HBsYWluXGYxXGZzMjAgQS 8wZ38sMJrwZZNbwDbaXjH hNMBcjTHdhXByoJGnd3U8 pIZuGYu5vDCjp6I5iBunS GluZmlsdHJhdGVzOlxwYX IgDQpccGFyZCANClxwbGF pblxmMVxmczIwXHBsYWlu XVu6kkGaCMOdUxAeGZHkP 21io1RCf7WoJY5OIYr8vt BgxgnmaZ5mGHPhqxAzWZv cZjFcZnMyMCBSZWNlaXZl KNSkcfYct1HbXAuxkbVaX ZCgaGGyXKaitJgzmRM3gY DdzDEiOG7gVUWoKPVmPVI 1eUDok3M6SDXdqiz9QWVv vSowgdGimS8dxN5gyNLxT yBpbmZpbHRyYXRlcywgbG VmdCBrbmVlIiBpcyBhIDM cA35eQSjnxtPbHYVcIJ8l UAM4l0p2PFOnht5gdwG5N EFtOzFhZ5ElgBltWSeknz 11miX8kVFmgDTvBMRGdID jx8SrJ5csUN5xyDPsruPj vaEkAN08AEIawsYqvYNxq QGfeVQ2SWFxeI1lOutjP7 sgQTEuXHBhciANClxwYXI nSVhyr9YmXSvefVxxHULa YiBpPQbppwf5MI2OOJQdO FxlcGljWHNhMCANClxlcG deDrAsaBRxZjW9OZKlkBM nYRA5WN5qoBlmQUCeU9Se W2IvshA0BGWymtFKUkbtG ijplkNjPX0OlK== [employer] Phone: Pathology report final diagnosis Narrative f9jmqNLrWZCfkNTeYREaW RhbsnSdFATpwRAhX2Jmgx jyOLhgAY8cOF7izUetsDG svTGeFKMlWbYip0cfj438 tXLfn1aiSNGEcxcvnLc7x VsjP56ta9D7RkdvA8ovLE QwXGdyZWVuMFxibHVlMDt 9XHBhcGVydzEyMjQwXHBh hCZyjUL6PFDlND8hzyutD JnsZGuuTHPgbaA8IAOdoE UhR7RgGJLmPF6gbfciASF 7UJdrRXZiDOU3QeBdROMt p2Zylpf0KdSetHi2i0qzE SKvOFEfgChbz6loYII6VD NptWZxB9socZ6nDITnNJ9 qkorih3uiFYqqVZluUJNj uAU5ogH4KVDrwZBlU7Fzb C7cNMRfJLCkowKjyRpeTu A8BAoppPXwyxkiRiJzF81 eoVV4lHTrbNSdBBjdVqXl M7ijBFTbuzppfFQoJUCmK ZWUdDojHD2kbjNpTVIhOf kzLBuvUvmzhO6wrRzsld9 ccGFyICAgLSBOZWdhdGl2 YRZoy7Yof0orgjcgjQVqh mFtwQGaqSKbg5S8bTAzSI x0vNYks5T7fHpiVLhtBgs rhQ0tmRkynw0rfBCgwH== [employer] Phone: [employer] Phone: Bacteria Spec Anaerobe Culto n 04-20-2022 Bacteria identified Anaer cx Nom (Unsp spec) Culture, Anaerobic Status = F No anaerobes grown after 4 days. Normal [facility] Comment on above: Performed By: #### 3 4556-1 #### [facility] [address] [place] [address] Performed By: #### 5 75-1 #### [facility] ([facility] [address] [place] [address] Bacteria identified Anaer cx Nom (Unsp spec) Culture, Anaerobic Status = F No anaerobes grown after 4 days. Normal [facility] Comment on above: Performed By: #### 3 4556-1 #### [facility] [address] [place] [address] Bacteria Spec BFld Culton Bacteria identified Sterile [...] above: Performed By: #### 6 36-1 #### [facility] ([facility] [address] [place] [address] Bacteria Tiss Culton 023 Bacteria identified Cx [...] above: Performed By: #### 3 4556-1 #### [facility] [address] [place] [address] Performed By: #### 5 75-1 #### [facility] ([facility] [address] [place] [address] Cell count panel (Body fld)o n 04-20-2022 Fluid Eosinophils 4.0 % Normal [facility] Comment on above: Performed By: #### 1 988-5 #### [facility] [address] [place] [address] Fluid Lining Cells 1.0 % Normal [facility] Comment on above: Performed By: #### 1 988-5 #### [facility] [address] [place] [address] Fluid Lymphocytes 46.0 % Normal [facility] Comment on above: Performed By: #### 1 988-5 #### [facility] [address] [facility] [place] [place] [address] Fluid Monocytes/Macrophages 24.0 % Normal [facility] Comment on above: Performed By: #### 1 988-5 #### [facility] [address] [facility] [place] [place] [address] Fluid Neutrophils 25.0 % Normal [facility] Comment on above: Performed By: #### 1 988-5 #### [facility] [address] [facility] [place] [address] Clarity (Body fld) [facility]y [facility] Color (Body fld) [employer] RBC Auto (Body fld) [#/Vol] 52815 /mm3 [facility] [employer] Comment on above: The reference range and other method performance specifications have not been established for this fluid specimen. The test result should be integrated into the clinical context for interpretation. Specimen source Nom (Body fld) Synovial [employer] WBC (Body fld) [#/Vol] 111 /mm3 [employer] Comment on above: The reference range and other method performance specifications have not been established for this fluid specimen. The test result should be integrated into the clinical context for interpretation. [employer] Differential panel (Body fld )Ordered By: Valarie Delacruz on 04-20-2022 Eosinophils/100 WBC Manual cnt (Body fld) 4.0 % [facility] Fluid Lining Cells 1.0 % [facility] Lymphocytes/100 WBC Manual cnt (Body fld) 46.0 % [facility] Monocytes+Macrophages /100 WBC (Body fld) 24.0 % [facility] Neutrophils/100 WBC (Body fld) 25.0 % [facility] Fungus Skin Culton Fungus identified Cx Nom (Skin) Culture, Fungus Status = F No growth at 4 weeks Normal [facility] Comment on above: Performed By: #### 5 75-1 #### [facility] [address] [place] [address] Performed By: #### 3 4556-1 #### [facility] [address] [place] [address] Fungus identified Cx Nom (Skin) Culture, Fungus Status = F No growth at 4 weeks Normal [facility] Comment on above: Performed By: #### 5 75-1 #### [facility] [address] [place] [address] Glucose Auto test strip (Bld ) [Mass/Vol]on 04-20-2022 Glucose [Mass/Vol] 135 mg/dL High 70-99 [facility] Comment on above: Performed By: #### 1 988-5 #### [facility] [address] [place] [address] Glucose [Mass/Vol] 135 mg/dL High 70 - 99 mg/dL [facility] Interpretation and review of laboratory results Abnormal [facility] Mycobacterium Spec Culton Mycobacterium sp identified Org specific cx Nom (Unsp spec) Culture AFB Status = F No growth at 8 weeks AFB Stain Status = F No acid fast bacilli seen Normal [facility] Comment on above: Performed By: #### 5 43-9 #### [facility] [address] [place] [address] Performed By: #### 3 4556-1 #### [facility] [address] [place] [address] Performed By: #### 5 75-1 #### [facility] [address] [place] [address] Mycobacterium sp identified Org specific cx Nom (Unsp spec) Culture AFB Status = F No growth at 8 weeks AFB Stain Status = F No acid fast bacilli seen Normal [facility] Comment on above: Performed By: #### 5 75-1 #### [facility] [address] [place] [address] No Panel InformationOrdered By: Hilary Albarran on 04-20-2022 [employer] PT Coag (PPP) [Time]on 04-20 aPTT Coag (Bld) [Time] 22.0 s Low 23.3-35.3 [facility] Comment on above: Performed By: #### 1 988-5 #### [facility] [address] [place] [address] PT Coag (PPP) [Time]Ordered By: Hilary Albarran on 04-20-2022 INR Coag (PPP) [Relative time] 1.0 {INR} NINF - 5.0 [facility] Comment on above: The recommended ther apeutic INR range for most cardiac indications is 2.0-3.0 For high intensity therapy (i.e. mechanical heart valves), the recommended range is 2.5-3.5 Interpretation and review of laboratory results Normal [employer] PT Coag (Bld) [Time] 13.4 s [facility] Pathology studyon 04-20-2022 Pathology study Soft tissue, left [place]: - Mild nonspecific inflammation. - Negative for [...] performed at [facility], [address] [place] [address]. Microscopic examination was performed. Normal [facility] Comment on above: Performed By: #### 1 1526-1 #### [facility] ([facility]) [facility] [address] [place] [address] [facility] ([facility] [address] [place] [address] XR KNEE 1-2 VIEWS LEFTon XR KNEE [...] By: Self Edit Transcribed Date: 04/20/2022 16:06 [employer] EXAMINATION TYPE: XR KNEE 1-2 VIEWS LEFT [...] By: Self Edit Transcribed Date: 04/20/2022 16:06 [employer] [employer] Radiology Study observation (narrative) [employer] XR Knee 1-2 Views LeftOrdere d By: Heriberto Saldana on 04-20-2022 [employer] Work Phone: aPTT Coag (Bld) [Time]on aPTT Coag (PPP) [Time] 22.0 s Low [employer] Interpretation and review of laboratory results Abnormal [employer] Covid-19 PCR (CVDTBH)on 04-02 SARS-CoV-2 (COVID-19) RNA REBECCA+probe Ql (Unsp spec) Not detected Normal NOT DETECTED [facility] Comment on above: Result Comment: When [...] for this test is supported by the [place] of Health and Human Service's declaration that [...] used). Performed By: #### C MP #### [facility] [address] [place] [address] Dr. Jeffrey Thomas Bacteria Spec Anaerobe Culto n 04-05-2022 Bacteria identified Anaer cx Nom (Unsp spec) Culture, Anaerobic Status = F No anaerobes grown after 4 days. Normal [facility] Comment on above: Performed By: #### 5 75-1 #### [facility] [address] [place] [address] Bacteria Spec BFld Culton Bacteria identified Sterile [...] above: Performed By: #### 5 75-1 #### [facility] [address] [place] [address] Blood type and Indirect anti body screen panel (Bld)on 04-05-2022 ABO group Nom (Bld) A Normal [facility] Comment on above: Performed By: #### 3 4532-2 #### [facility] [address] [place] [address] Rh Type Positive Normal [facility] Comment on above: Performed By: #### 3 4532-2 #### [facility] [address] [facility] [place] [address] CRP [Mass/Vol]on 04-05-2022 Anion gap [Moles/Vol] 9 mmol/L Normal 6-18 [facility] Comment on above: Performed By: #### 1 988-5 #### [facility] [address] [facility] [place] [address] Calcium [Mass/Vol] 9.4 mg/dL Normal 8.9-10.3 [facility] Comment on above: Performed By: #### 1 988-5 #### [facility] [address] [place] [address] Chloride [Moles/Vol] 105 mmol/L Normal 98-107 [facility] Comment on above: Performed By: #### 1 988-5 #### [facility] [address] [place] [address] CO2 [Moles/Vol] 24 mmol/L Normal 22-32 [facility] Comment on above: Performed By: #### 1 988-5 #### [facility] [address] [place] [address] Creatinine [Mass/Vol] 1.07 mg/dL Normal 0.60-1.30 [facility] Comment on above: Performed By: #### 1 988-5 #### [facility] [address] [place] [address] GFR/1.73 sq M.predicted among non-blacks MDRD (S/P/Bld) [Vol rate/Area] 58 mL/min/{1.73_m2} Low >=60 [facility] Comment on above: Result Comment: Effe ctive January 08, 2022, calculation based on the?Chronic Kidney Disease Epidemiology Collaboration (CKD-EPI) equation refit?without adjustment for race. Performed By: #### 1 988-5 #### [facility] [address] [place] [address] Glucose [Mass/Vol] 97 mg/dL Normal 70-99 [facility] Comment on above: Performed By: #### 1 988-5 #### [facility] [address] [place] [address] Potassium [Moles/Vol] 4.9 mmol/L Normal 3.6-5.1 [facility] Comment on above: Performed By: #### 1 988-5 #### [facility] [address] [place] [address] Sodium [Moles/Vol] 138 mmol/L Normal 136-145 [facility] Comment on above: Performed By: #### 1 988-5 #### [facility] [address] [place] [id number] Urea nitrogen [Mass/Vol] 22 mg/dL High 8-20 [facility] Comment on above: Performed By: #### 1 988-5 #### [facility] [address] [place] [address] Urea nitrogen/Creatinine [Mass ratio] 20.6 mg/mg High 12.0-20.0 [facility] Comment on above: Performed By: #### 1 988-5 #### [facility] [address] [place] [address] Cell count panel (Body fld)o n 04-05-2022 Fluid Eosinophils 3.0 % Normal [facility] Comment on above: Result Comment: Boy ected result: Previously reported as 6.0 % on 04/05/2022 at 1416 EST. Performed By: #### 3 4556-1 #### [facility] [address] [place] [address] Fluid Lymphocytes 34.0 % Normal [facility] Comment on above: Result Comment: Boy ected result: Previously reported as 43.0 % on 04/05/2022 at 1416 EST. Performed By: #### 3 4556-1 #### [facility] [address] [place] [address] Fluid Monocytes/Macrophages 23.0 % Normal [facility] Comment on above: Result Comment: Boy ected result: Previously reported as 9.0 % on 04/05/2022 at 1416 EST. Performed By: #### 3 4556-1 #### [facility] [address] [place] [address] Fluid Neutrophils 40.0 % Normal [facility] Comment on above: Result Comment: Boy ected result: Previously reported as 39.0 % on 04/05/2022 at 1416 EST. Performed By: #### 3 4556-1 #### [facility] [address] [place] [id number] Fluid Other Cells Normal [facility] Comment on above: Result Comment: Lini ng cells Corrected result: Previously reported as 3.0 % on 04/05/2022 at 1416 EST. Performed By: #### 3 4556-1 #### [facility] [address] [place] [address] Fungus Skin Culton 3 Fungus identified Cx Nom (Skin) Culture, Fungus Status = F No growth at 4 weeks Normal [facility] Comment on above: Performed By: #### 3 4556-1 #### [facility] [address] [place] [address] Hemogram and platelets WO di fferential panel (Bld)on 04-05-2022 Sed Rate 41 mm/hr High 0-20 [facility] Comment on above: Performed By: #### 5 75-1 #### [facility] [address] [place] [address] Mycobacterium Spec Culton Mycobacterium sp identified Org specific cx Nom (Unsp spec) Culture AFB Status = F No growth at 8 weeks AFB Stain Status = F No acid fast bacilli seen Normal [facility] Comment on above: Performed By: #### 1 988-5 #### [facility] [address] [place] [address] Basic metabolic 2000 panelon 01-05-2022 Anion gap [Moles/Vol] 12 mmol/L [facility] Calcium [Mass/Vol] 9.1 mg/dL 8.9 - 10. 3 mg/dL [employer] Chloride [Moles/Vol] 103 mmol/L 98 - 10 7 mmol/L [employer] CO2 [Moles/Vol] 19 mmol/L Low 22 - 32 mmol/L [employer] Creatinine [Mass/Vol] 1.28 mg/dL 0.60 - 1.30 mg/dL [employer] GFR/1.73 sq M.predicted MDRD (S/P/Bld) [Vol rate/Area] 44 mL/min/{1.73_m2} Low >=60 mL/min/1.73m 2 [employer] Glucose [Mass/Vol] 99 mg/dL 70 - 99 mg/dL [employer] Interpretation and review of laboratory results Abnormal [employer] Potassium [Moles/Vol] 5.1 mmol/L 3.6 - 5.1 mmol/L [employer] Sodium [Moles/Vol] 134 mmol/L Low 136 - 145 mmol/L [employer] Urea nitrogen [Mass/Vol] 34 mg/dL High 8 - 20 mg/dL [employer] Urea nitrogen/Creatinine [Mass ratio] 26.6 mg/mg High [facility] Hemogram and platelets WO di fferential panel (Bld)on 01-05-2022 Basophils (Bld) [#/Vol] 0.10 10*3/uL [employer] [facility] Basophils/100 WBC (Bld) 0.8 % 0.0 - 2.0 % [employer] [facility] Eosinophils (Bld) [#/Vol] 0.29 10*3/uL [facility] Eosinophils/100 WBC (Bld) 2.3 % 0.0 - 7.0 % [facility] Erythrocyte distribution width (RBC) [Ratio] 15.8 % High 11.0 - 14.8 % [facility] Hematocrit (Bld) [Volume fraction] 35.6 % 34.3 [...] volume (Bld) [Entitic vol] 11.8 fL [facility] Platelets (Bld) [#/Vol] 194 10*3/uL [facility] RBC (Bld) [#/Vol] 3.39 10*6/uL Low [facility] WBC (Bld) [#/Vol] 12.7 10*3/uL [facility] Manual Differential panel (B ld)on 01-05-2022 Eosinophils (Bld) [#/Vol] 0.13 10*3/uL [facility] Eosinophils/100 WBC (Bld) 1.0 % 0.0 - 7.0 % [facility] Interpretation and review of laboratory results Abnormal [facility] Lymphocytes (Bld) [#/Vol] 2.54 10*3/uL [facility] Lymphocytes/100 WBC (Bld) 20.0 % 17.9 - 49.6 % [facility] Monocytes (Bld) [#/Vol] 1.02 10*3/uL High [facility] Monocytes/100 WBC (Bld) 8.0 % 0.0 - 12.0 % [facility] Segmented neutrophils (Bld) [#/Vol] 9.02 10*3/uL High [facility] Segmented neutrophils/100 WBC (Bld) 71.0 % 38.1 - 75.5 % [facility] PT Coag (PPP) [Time]on 01-05 INR Coag (PPP) [Relative time] 1.0 {INR} <=5.0 [facility] Comment on above: The recommended ther apeutic INR range for most cardiac indications is 2.0-3.0 For high intensity therapy (i.e. mechanical heart valves), the recommended range is 2.5-3.5 Interpretation and review of laboratory results Normal [facility] PT Coag (Bld) [Time] 13.0 s [facility] Basic metabolic 2000 panelon 01-04-2022 Anion gap [Moles/Vol] 9 mmol/L [facility] Calcium [Mass/Vol] 8.9 mg/dL 8.9 - 10. 3 mg/dL [facility] Chloride [Moles/Vol] 103 mmol/L 98 - 10 7 mmol/L [facility] CO2 [Moles/Vol] 21 mmol/L Low 22 - 32 mmol/L [facility] Creatinine [Mass/Vol] 1.00 mg/dL 0.60 - 1.30 mg/dL [facility] GFR/1.73 sq M.predicted MDRD (S/P/Bld) [Vol rate/Area] 59 mL/min/{1.73_m2} Low >=60 mL/min/1.73m 2 [facility] Glucose [Mass/Vol] 129 mg/dL High 70 - 99 mg/dL [facility] Interpretation and review of laboratory results Abnormal [facility] Potassium [Moles/Vol] 5.0 mmol/L 3.6 - 5.1 mmol/L [facility] Sodium [Moles/Vol] 133 mmol/L Low 136 - 145 mmol/L [facility] Urea nitrogen [Mass/Vol] 26 mg/dL High 8 - 20 mg/dL [facility] Urea nitrogen/Creatinine [Mass ratio] 26.0 mg/mg High [facility] Hemogram and platelets WO di fferential panel [...] mean volume (Bld) [Entitic vol] 11.5 fL [facility] th Platelets (Bld) [#/Vol] 271 10*3/uL [facility] RBC (Bld) [#/Vol] 3.39 10*6/uL Low [facility] WBC (Bld) [#/Vol] 14.6 10*3/uL High [facility] Manual Differential panel (B ld)on 01-04-2022 Interpretation and review of laboratory results Abnormal [facility] Lymphocytes (Bld) [#/Vol] 2.77 10*3/uL [facility] Lymphocytes/100 WBC (Bld) 19.0 % 17.9 - 49.6 % [facility] Monocytes (Bld) [#/Vol] 1.31 10*3/uL High [facility] Monocytes/100 WBC (Bld) 9.0 % 0.0 - 12.0 % [facility] Segmented neutrophils (Bld) [#/Vol] 10.51 10*3/uL High [facility] Segmented neutrophils/100 WBC (Bld) 72.0 % 38.1 - 75.5 % [facility] PT Coag (PPP) [Time]Ordered By: Hilary Albarran on 01-04-2022 INR Coag (PPP) [Relative time] 0.9 {INR} <=5.0 [facility] Comment on above: The recommended ther apeutic INR range for most cardiac indications is 2.0-3.0 For high intensity therapy (i.e. mechanical heart valves), the recommended range is 2.5-3.5 Interpretation and review of laboratory results Normal [facility] PT Coag (Bld) [Time] 12.6 s [facility] Glucose Auto test strip (Bld ) [Mass/Vol]on 01-03-2022 Glucose [Mass/Vol] 144 mg/dL High 70 - 99 mg/dL [facility] Interpretation and review of laboratory results Abnormal [facility] Covid-19 PCR (CVDTBH)on SARS-CoV-2 (COVID-19) RNA REBECCA+probe Ql (Unsp spec) Not detected Normal NOT DETECTED [facility] Comment on above: Result Comment: When [...] for this test is supported by the [place] of Health and Human Service's declaration that [...] used). Performed By: #### C MP #### [facility] [address] [place] [address] Dr. Jeffrey Thomas CBC AUTO DIFFon 12-14-2021 BASO # 0.1 103/ul Normal 0.0-0.1 [facility] Comment on above: Performed By: #### T 4LC #### [facility] [address] [place] [address] Dr. Jeffrey Thomas Basophils/100 WBC (Bld) 1.2 % Normal 0.2-2.0 [facility] Comment on above: Performed By: #### T 4LC #### [facility] [address] [place] [address] Dr. Jeffrey Thomas EO # 0.2 103/ul Normal 0.0-0.7 [facility] Comment on above: Performed By: #### T 4LC #### [facility] [address] [place] [address] Dr. Jeffrey Thomas Eosinophils/100 WBC (Bld) 3.2 % Normal 0.9-7.0 [facility] Comment on above: Performed By: #### T 4LC #### [facility] [address] [place] [address] Dr. Jeffrey Thomas Erythrocyte distribution width (RBC) [Ratio] 15.9 % Critically high 11.0-15.0 [facility] Comment on above: Performed By: #### T 4LC #### [facility] [address] [place] [address] Dr. Jeffrey Thomas Hematocrit (Bld) [Volume fraction] 35.1 % Critically low 36.0-48.0 [facility] Comment on above: Performed By: #### T 4LC #### [facility] [address] [place] [address] Dr. Jeffrey Thomas Hemoglobin (Bld) [Mass/Vol] 10.8 g/dL Critically low 12.0-16.0 [facility] Comment on above: Performed By: #### T 4LC #### [facility] [address] [place] [address] Dr. Jeffrey Thomas IG # 0.03 10e3/ul Normal 0.00-0.03 [facility] Comment on above: Performed By: #### 4LC #### [facility] [address] [place] [address] Dr. Jeffrey Thomas IG % 0.4 % Normal 0.0-0.5 [facility] Comment on above: Performed By: #### 4LC #### [facility] [address] [place] [address] Dr. Jeffrey Thomas LYMPH # 2.1 103/ul Normal 1.2-3.8 [facility] Comment on above: Performed By: #### 4LC #### [facility] [address] [place] [address] Dr. Jeffrey Thomas Lymphocytes/100 WBC (Bld) 30.8 % Normal 20.5-60.0 [facility] Comment on above: Performed By: #### 4LC #### [facility] [address] [place] [address] Dr. Jeffrey Thomas MANUAL DIFF REQ NO Normal [facility] Comment on above: Performed By: #### T 4LC #### [facility] [address] [place] [address] Dr. Jeffrey Thomas MCH (RBC) [Entitic mass] 30.3 pg Normal 26.7-34.0 [facility] Comment on above: Performed By: #### T 4LC #### [facility] [address] [place] [address] Dr. Jeffrey Thomas MCHC (RBC) [Mass/Vol] 30.8 g/dL Normal 29.9-35.2 [facility] Comment on above: Performed By: #### T 4LC #### [facility] [address] [place] [address] Dr. Jeffrey Thomas MCV (RBC) [Entitic vol] 98.6 fL Normal 81.0-99.0 [facility] Comment on above: Performed By: #### T 4LC #### [facility] [address] [place] [address] Dr. Jeffrey Thomas MONO # 0.5 103/ul Normal 0.3-0.8 [facility] Comment on above: Performed By: #### T 4LC #### [facility] [address] [place] [address] Dr. Jeffrey Thomas Monocytes/100 WBC (Bld) 7.5 % Normal 1.7-12.0 [facility] Comment on above: Performed By: #### T 4LC #### [facility] [address] [place] [address] Dr. Jeffrey Thomas NEUT # 3.9 103/ul Normal 1.4-6.5 [facility] Comment on above: Performed By: #### T 4LC #### [facility] [address] [place] [address] Dr. Jeffrey Thomas Neutrophils/100 WBC (Bld) 56.9 % Normal 43.0-75.0 [facility] Comment on above: Performed By: #### T 4LC #### [facility] [address] [place] [address] Dr. Jeffrey Thomas Platelet mean volume (Bld) [Entitic vol] 12.0 fL Normal 9.5-13.5 [facility] Comment on above: Performed By: #### T 4LC #### [facility] [address] [place] [address] Dr. Jeffrey Thomas PLT 209 103/ul Normal 150-450 [facility] Comment on above: Performed By: #### T 4LC #### [facility] [address] [address] [address] Jeffrey Thomas RBC 3.56 106/ul Critically low 4.20-5.40 [facility] Comment on above: Performed By: #### T 4LC #### [facility] [address] [place] [address] Dr. Jeffrey Thomas WBC 6.8 103/ul Normal 4.0-11.0 [facility] Comment on above: Performed By: #### T 4LC #### [facility] [address] [place] [address] Dr. Jeffrey Thomas PROF 14(COMP METB)on 022 Albumin [Mass/Vol] 2.5 g/dL Critically low 3.4-5.0 [facility] Comment on above: Performed By: #### L ACT #### [facility] [address] [place] [address] Dr. Jeffrey Thomas Albumin/Globulin [Mass ratio] 1.0 {ratio} Normal [facility] Comment on above: Performed By: #### L ACT #### [facility] [address] [place] [address] Dr. Jeffrey Thomas ALP [Catalytic activity/Vol] 94 U/L Normal 46-116 [facility] Comment on above: Performed By: #### L ACT #### [facility] [address] [place] [address] Dr. Jeffrey Thomas ALT [Catalytic activity/Vol] 9 U/L Critically low 14-59 [facility] Comment on above: Performed By: #### L ACT #### [facility] [address] [place] [address] Dr. Jeffrey Thomas Anion gap [Moles/Vol] 11.7 mmol/L Normal [facility] Comment on above: Performed By: #### L ACT #### [facility] [address] [place] [address] Dr. Jeffrey Thomas AST [Catalytic activity/Vol] 6 U/L Critically low 15-37 [facility] Comment on above: Performed By: #### L ACT #### [facility] [address] [address] [address] Jeffrey Thomas Bilirubin [Mass/Vol] 0.1 mg/dL Critically low 0.2-1.0 [facility] Comment on above: Performed By: #### L ACT #### [facility] [address] [address] [address] Jeffrey Thomas Calcium [Mass/Vol] 8.2 mg/dL Critically low 8.5-10.1 Th [facility] Comment on above: Performed By: #### L ACT #### [facility] [address] [address] [address] Jeffrey Thomas Chloride [Moles/Vol] 111 mmol/L Critically high 98-107 [facility] Comment on above: Performed By: #### L ACT #### [facility] [address] [place] [address] Dr. Jeffrey Thomas CO2 [Moles/Vol] 22.5 mmol/L Normal 21.0-32.0 [facility] Comment on above: Performed By: #### L ACT #### [facility] [address] [place] [address] Dr. Jeffrey Thomas Creatinine [Mass/Vol] 0.87 mg/dL Normal 0.55-1.02 [facility] Comment on above: Performed By: #### L ACT #### [facility] [address] [place] [address] Dr. Jeffrey Thomas EGFR-AF [place] >60 Normal >=60 [facility] Comment on above: Performed By: #### L ACT #### [facility] [address] [address] [address] Jeffrey Thomas EGFR-NON AF [place] >60 Normal >=60 [facility] Comment on above: Performed By: #### L ACT #### [facility] [address] [place] [address] Dr. Jeffrey Thmoas Globulin (S) [Mass/Vol] 2.6 g/dL Normal [facility] Comment on above: Performed By: #### L ACT #### [facility] [address] [address] [address] Jeffrey Thomas Glucose [Mass/Vol] 111 mg/dL Critically high 74-106 T [facility] Comment on above: Performed By: #### L ACT #### [facility] [address] [place] [address] Dr. Jeffrey Thomas Potassium [Moles/Vol] 4.2 mmol/L Normal 3.5-5.1 [facility] Comment on above: Performed By: #### L ACT #### [facility] [address] [place] [address] Dr. Jeffrey Thomas Protein [Mass/Vol] 5.1 g/dL Critically low 6.4-8.2 Th [facility] Comment on above: Performed By: #### L ACT #### [facility] [address] [place] [address] Dr. Jeffrey Thomas Sodium [Moles/Vol] 141 mmol/L Normal 136-145 [facility] Comment on above: Performed By: #### L ACT #### [facility] [address] [place] [address] Dr. Jeffrey Thomas Urea nitrogen [Mass/Vol] 31.0 mg/dL Critically high 7.0-18.0 [facility] Comment on above: Performed By: #### L ACT #### [facility] [address] [place] [address] Dr. Jeffrey Thomas Urea nitrogen/Creatinine [Mass ratio] 35.6 mg/mg Normal [facility] Comment on above: Performed By: #### L ACT #### [facility] [address] [place] [address] Dr. Jeffrey Thomas CBC AUTO DIFFon 12-13-2021 BASO # 0.1 103/ul Normal 0.0-0.1 [facility] Comment on above: Performed By: #### L ACT #### [facility] [address] [place] [address] Dr. Jeffrey Thomas Basophils/100 WBC (Bld) 1.3 % Normal 0.2-2.0 [facility] Comment on above: Performed By: #### L ACT #### [facility] [address] [place] [address] Dr. Jeffrey Thomas EO # 0.3 103/ul Normal 0.0-0.7 [facility] Comment on above: Performed By: #### L ACT #### [facility] [address] [place] [address] Dr. Jeffrey Thomas Eosinophils/100 WBC (Bld) 3.8 % Normal 0.9-7.0 [facility] Comment on above: Performed By: #### L ACT #### [facility] [address] [place] [address] Dr. Jeffrey Thomas Erythrocyte distribution width (RBC) [Ratio] 15.7 % Critically high 11.0-15.0 [facility] Comment on above: Performed By: #### L ACT #### [facility] [address] [place] [address] Dr. Jeffrey Thomas Hematocrit (Bld) [Volume fraction] 35.7 % Critically low 36.0-48.0 [facility] Comment on above: Performed By: #### L ACT #### [facility] [address] [place] [address] Dr. Jeffrey Thomas Hemoglobin (Bld) [Mass/Vol] 11.5 g/dL Critically low 12.0-16.0 [facility] Comment on above: Performed By: #### L ACT #### [facility] [address] [place] [address] Dr. Jeffrey Thomas IG # 0.04 10e3/ul Critically high 0.00-0.03 [facility] Comment on above: Performed By: #### L ACT #### [facility] [address] [place] [address] Dr. Jeffrey Thomas IG % 0.6 % Critically high 0.0-0.5 [facility] Comment on above: Performed By: #### L ACT #### [facility] [address] [place] [address] Dr. Jeffrey Thomas LYMPH # 2.0 103/ul Normal 1.2-3.8 [facility] Comment on above: Performed By: #### L ACT #### [facility] [address] [place] [address] Dr. Jeffrey Thomas Lymphocytes/100 WBC (Bld) 28.8 % Normal 20.5-60.0 [facility] Comment on above: Performed By: #### L ACT #### [facility] [address] [place] [address] Dr. Jeffrey Thomas MANUAL DIFF REQ NO Normal [facility] Comment on above: Performed By: #### L ACT #### [facility] [address] [place] [address] Dr. Jeffrey Thomas MCH (RBC) [Entitic mass] 31.6 pg Normal 26.7-34.0 [facility] Comment on above: Performed By: #### L ACT #### [facility] [address] [place] [address] Dr. Jeffrey Thomas MCHC (RBC) [Mass/Vol] 32.2 g/dL Normal 29.9-35.2 [facility] Comment on above: Performed By: #### L ACT #### [facility] [address] [place] [address] Dr. Jeffrey Thomas MCV (RBC) [Entitic vol] 98.1 fL Normal 81.0-99.0 [facility] Comment on above: Performed By: #### L ACT #### [facility] [address] [place] [address] Dr. Jeffrey Thomas MONO # 0.6 103/ul Normal 0.3-0.8 [facility] Comment on above: Performed By: #### L ACT #### [facility] [address] [place] [address] Dr. Jeffrey Thomas Monocytes/100 WBC (Bld) 8.5 % Normal 1.7-12.0 [facility] Comment on above: Performed By: #### L ACT #### [facility] [address] [place] [address] Dr. Jeffrey Thomas NEUT # 3.9 103/ul Normal 1.4-6.5 [facility] Comment on above: Performed By: #### L ACT #### [facility] [address] [place] [address] Dr. Jeffrey Thomas Neutrophils/100 WBC (Bld) 57.0 % Normal 43.0-75.0 [facility] Comment on above: Performed By: #### L ACT #### [facility] [address] [address] [address] Jeffrey Thomas Platelet mean volume (Bld) [Entitic vol] 11.5 fL Normal 9.5-13.5 [facility] Comment on above: Performed By: #### L ACT #### [facility] [address] [address] [address] Jeffrey Thomas PLT 199 103/ul Normal 150-450 [facility] Comment on above: Performed By: #### L ACT #### [facility] [address] [address] [address] Jeffrey Thomas RBC 3.64 106/ul Critically low 4.20-5.40 [facility] Comment on above: Performed By: #### L ACT #### [facility] [address] [place] [address] Dr. Jeffrey Thomas WBC 6.9 103/ul Normal 4.0-11.0 [facility] Comment on above: Performed By: #### L ACT #### [facility] [address] [place] [address] Dr. Jeffrey Thomas POINT OF CARE GLUCOSEon 12-01 Glucose [Mass/Vol] 85 mg/dL Normal 74-106 [facility] Comment on above: Performed By: #### C MP #### [facility] [address] [place] [address] Dr. Jeffrey Thomas PROF 14(COMP METB)on 022 Albumin [Mass/Vol] 2.7 g/dL Critically low 3.4-5.0 [facility] Comment on above: Performed By: #### A MM #### [facility] [address] [place] [address] Dr. Jeffrey Thomas Albumin/Globulin [Mass ratio] 1.0 {ratio} Normal [facility] Comment on above: Performed By: #### A MM #### [facility] [address] [place] [address] Dr. Jeffrey Thomas ALP [Catalytic activity/Vol] 95 U/L Normal 46-116 [facility] Comment on above: Performed By: #### A MM #### [facility] [address] [address] [address] Jeffrey Thomas ALT [Catalytic activity/Vol] 11 U/L Critically low 14-59 [facility] Comment on above: Performed By: #### A MM #### [facility] [address] [address] [address] Jeffrey Thomas Anion gap [Moles/Vol] 10.8 mmol/L Normal [facility] Comment on above: Performed By: #### A MM #### [facility] [address] [address] [address] Jeffrey Thomas AST [Catalytic activity/Vol] 14 U/L Critically low 15-37 [facility] Comment on above: Performed By: #### A MM #### [facility] [address] [address] [address] Jeffrey Thomas Bilirubin [Mass/Vol] 0.2 mg/dL Normal 0.2-1.0 [facility] Comment on above: Performed By: #### A MM #### [facility] [address] [address] [address] Jeffrey Thomas Calcium [Mass/Vol] 8.3 mg/dL Critically low 8.5-10.1 [facility] Comment on above: Performed By: #### A MM #### [facility] [address] [address] [address] Jeffrey Thomas Chloride [Moles/Vol] 113 mmol/L Critically high 98-107 [facility] Comment on above: Performed By: #### A MM #### [facility] [address] [address] [address] Jeffrey Thomas CO2 [Moles/Vol] 22.1 mmol/L Normal 21.0-32.0 [facility] Comment on above: Performed By: #### A MM #### [facility] [address] [address] [address] Jeffrey Thomas Creatinine [Mass/Vol] 0.98 mg/dL Normal 0.55-1.02 [facility] Comment on above: Performed By: #### A MM #### [facility] [address] [address] [address] Jeffrey Thomas EGFR-AF [place] >60 Normal >=60 [facility] Comment on above: Performed By: #### A MM #### [facility] [address] [address] [address] Jeffrey Thomas EGFR-NON AF [place] 57 mL/min/1.73m2 Critically low >=60 [facility] Comment on above: Performed By: #### A MM #### [facility] [address] [address] [address] Jeffrey Thomas Globulin (S) [Mass/Vol] 2.6 g/dL Normal [facility] Comment on above: Performed By: #### A MM #### [facility] [address] [address] [address] Jeffrey Thomas Glucose [Mass/Vol] 102 mg/dL Normal 74-106 [facility] Comment on above: Performed By: #### A MM #### [facility] [address] [address] [address] Jeffrey Thomas Potassium [Moles/Vol] 3.9 mmol/L Normal 3.5-5.1 [facility] Comment on above: Performed By: #### A MM #### [facility] [address] [address] [address] Jeffrey Thomas Protein [Mass/Vol] 5.3 g/dL Critically low 6.4-8.2 Th [facility] Comment on above: Performed By: #### A MM #### [facility] [address] [address] [address] Jeffery Thomas Sodium [Moles/Vol] 142 mmol/L Normal 136-145 [facility] Comment on above: Performed By: #### A MM #### [facility] [address] [address] [address] Jeffrey Thomas Urea nitrogen [Mass/Vol] 26.0 mg/dL Critically high 7.0-18.0 [facility] Comment on above: Performed By: #### A MM #### [facility] [address] [place] [address] Dr. Jeffrey Thomas Urea nitrogen/Creatinine [Mass ratio] 26.5 mg/mg Normal [facility] Comment on above: Performed By: #### A MM #### [facility] [address] [place] [address] Dr. Jeffrey Thomas T3, TOTAL (TRIIODOTHYRONINE) on 12-13-2021 T3, TOTAL 72 ng/dL Normal 71-180 [facility] Comment on above: Performed By: #### C MP #### [facility] [address] [place] [address] Dr. Jeffrey Thomas T4 [facility]on 12-13-2021 T4 [Mass/Vol] 5.2 ug/dL Normal 4.5-12.0 [facility] Comment on above: Performed By: #### T 4LC #### [facility] [address] [place] [address] Dr. Jeffrey Thomas AMMONIAon 12-12-2021 Ammonia (P) [Moles/Vol] 10 umol/L Critically low 11-32 [facility] Comment on above: Performed By: #### A MM #### [facility] [address] [place] [address] Dr. Jeffrey Thomas CBC AUTO DIFFon 12-12-2021 BASO # 0.1 103/ul Normal 0.0-0.1 [facility] Comment on above: Performed By: #### T 4LC #### [facility] [address] [place] [address] Dr. Jeffrey Thomas Basophils/100 WBC (Bld) 1.4 % Normal 0.2-2.0 [facility] Comment on above: Performed By: #### T 4LC #### [facility] [address] [place] [address] Dr. Jeffrey Thomas EO # 0.2 103/ul Normal 0.0-0.7 [facility] Comment on above: Performed By: #### T 4LC #### [facility] [address] [place] [address] Dr. Jeffrey Thomas Eosinophils/100 WBC (Bld) 2.6 % Normal 0.9-7.0 [facility] Comment on above: Performed By: #### T 4LC #### [facility] [address] [place] [address] Dr. Jeffrey Thomas Erythrocyte distribution width (RBC) [Ratio] 15.7 % Critically high 11.0-15.0 [facility] Comment on above: Performed By: #### T 4LC #### [facility] [address] [place] [address] Dr. Jeffrey Thomas Hematocrit (Bld) [Volume fraction] 38.4 % Normal 36.0-48.0 [facility] Comment on above: Performed By: #### T 4LC #### [facility] [address] [place] [address] Dr. Jeffrey Thomas Hemoglobin (Bld) [Mass/Vol] 12.2 g/dL Normal 12.0-16.0 [facility] Comment on above: Performed By: #### T 4LC #### [facility] [address] [place] [address] Dr. Jeffrey Thomas IG # 0.04 10e3/ul Critically high 0.00-0.03 [facility] Comment on above: Performed By: #### T 4LC #### [facility] [address] [place] [address] Dr. Jeffrey Thomas IG % 0.5 % Normal 0.0-0.5 [facility] Comment on above: Performed By: #### T 4LC #### [facility] [address] [place] [address] Dr. Jeffrey Thomas LYMPH # 2.2 103/ul Normal 1.2-3.8 [facility] Comment on above: Performed By: #### T 4LC #### [facility] [address] [place] [address] Dr. Jeffrey Thomas Lymphocytes/100 WBC (Bld) 28.0 % Normal 20.5-60.0 [facility] Comment on above: Performed By: #### T 4LC #### [facility] [address] [place] [address] Dr. Jeffrey Thomas MANUAL DIFF REQ NO Normal [facility] Comment on above: Performed By: #### T 4LC #### [facility] [address] [place] [address] Dr. Jeffrey Thomas MCH (RBC) [Entitic mass] 30.9 pg Normal 26.7-34.0 [facility] Comment on above: Performed By: #### T 4LC #### [facility] [address] [place] [address] Dr. Jeffrey Thomas MCHC (RBC) [Mass/Vol] 31.8 g/dL Normal 29.9-35.2 [facility] Comment on above: Performed By: #### T 4LC #### [facility] [address] [place] [address] Dr. Jeffrey Thomas MCV (RBC) [Entitic vol] 97.2 fL Normal 81.0-99.0 [facility] Comment on above: Performed By: #### T 4LC #### [facility] [address] [place] [address] Dr. Jeffrey Thomas MONO # 0.6 103/ul Normal 0.3-0.8 [facility] Comment on above: Performed By: #### T 4LC #### [facility] [address] [place] [address] Dr. Jeffrey Thomas Monocytes/100 WBC (Bld) 7.9 % Normal 1.7-12.0 [facility] Comment on above: Performed By: #### T 4LC #### [facility] [address] [place] [address] Dr. Jeffrey Thomas NEUT # 4.7 103/ul Normal 1.4-6.5 [facility] Comment on above: Performed By: #### T 4LC #### [facility] [address] [place] [address] Dr. Jeffrey Thomas Neutrophils/100 WBC (Bld) 59.6 % Normal 43.0-75.0 [facility] Comment on above: Performed By: #### T 4LC #### [facility] [address] [place] [address] Dr. Jeffrey Thomas Platelet mean volume (Bld) [Entitic vol] 11.7 fL Normal 9.5-13.5 [facility] Comment on above: Performed By: #### T 4LC #### [facility] [address] [place] [address] Dr. Jeffrey Thomas PLT 256 103/ul Normal 150-450 [facility] Comment on above: Performed By: #### T 4LC #### [facility] [address] [place] [address] Dr. Jeffrey Thomas RBC 3.95 106/ul Critically low 4.20-5.40 [facility] Comment on above: Performed By: #### T 4LC #### [facility] [address] [place] [address] Dr. Jeffrey Thomas WBC 7.9 103/ul Normal 4.0-11.0 [facility] Comment on above: Performed By: #### T 4LC #### [facility] [address] [place] [address] Dr. Jeffrey Thomas BASO # 0.1 103/ul Normal 0.0-0.1 [facility] Comment on above: Performed By: #### C MP #### [facility] [address] [place] [address] Dr. Jeffrey Thomas Basophils/100 WBC (Bld) 1.4 % Normal 0.2-2.0 [facility] Comment on above: Performed By: #### C MP #### [facility] [address] [place] [address] Dr. Jeffrey Thomas EO # 0.2 103/ul Normal 0.0-0.7 [facility] Comment on above: Performed By: #### C MP #### [facility] [address] [place] [address] Dr. Jeffrey Thomas Eosinophils/100 WBC (Bld) 2.9 % Normal 0.9-7.0 [facility] Comment on above: Performed By: #### C MP #### [facility] [address] [place] [address] Dr. Jeffrey Thomas Erythrocyte distribution width (RBC) [Ratio] 15.7 % Critically high 11.0-15.0 [facility] Comment on above: Performed By: #### C MP #### [facility] [address] [place] [address] Dr. Jeffrey Thomas Hematocrit (Bld) [Volume fraction] 40.7 % Normal 36.0-48.0 [facility] Comment on above: Performed By: #### C MP #### [facility] [address] [place] [address] Dr. Jeffrey Thomas Hemoglobin (Bld) [Mass/Vol] 12.9 g/dL Normal 12.0-16.0 [facility] Comment on above: Performed By: #### C MP #### [facility] [address] [place] [address] Dr. Jeffrey Thomas IG # 0.02 10e3/ul Normal 0.00-0.03 [facility] Comment on above: Performed By: #### C MP #### [facility] [address] [place] [address] Dr. Jeffrey Thomas IG % 0.3 % Normal 0.0-0.5 [facility] Comment on above: Performed By: #### C MP #### [facility] [address] [place] [address] Dr. Jeffrey Thomas LYMPH # 1.7 103/ul Normal 1.2-3.8 [facility] Comment on above: Performed By: #### C MP #### [facility] [address] [place] [address] Dr. Jeffrey Thomas Lymphocytes/100 WBC (Bld) 28.4 % Normal 20.5-60.0 [facility] Comment on above: Performed By: #### C MP #### [facility] [address] [place] [address] Dr. Jeffrey Thomas MANUAL DIFF REQ NO Normal [facility] Comment on above: Performed By: #### C MP #### [facility] [address] [place] [address] Dr. Jeffrey Thomas MCH (RBC) [Entitic mass] 30.7 pg Normal 26.7-34.0 [facility] Comment on above: Performed By: #### C MP #### [facility] [address] [address] [address] Jeffrey Thomas MCHC (RBC) [Mass/Vol] 31.7 g/dL Normal 29.9-35.2 [facility] Comment on above: Performed By: #### C MP #### [facility] [address] [address] [address] Jeffrey Thomas MCV (RBC) [Entitic vol] 96.9 fL Normal 81.0-99.0 [facility] Comment on above: Performed By: #### C MP #### [facility] [address] [address] [address] Jeffrey Thomas MONO # 0.5 103/ul Normal 0.3-0.8 [facility] Comment on above: Performed By: #### C MP #### [facility] [address] [place] [address] Dr. Jeffrey Thomas Monocytes/100 WBC (Bld) 8.3 % Normal 1.7-12.0 [facility] Comment on above: Performed By: #### C MP #### [facility] [address] [address] [address] Jeffrey Thomas NEUT # 3.5 103/ul Normal 1.4-6.5 [facility] Comment on above: Performed By: #### C MP #### [facility] [address] [address] [address] Jeffrey Thomas Neutrophils/100 WBC (Bld) 58.7 % Normal 43.0-75.0 [facility] Comment on above: Performed By: #### C MP #### [facility] [address] [address] [address] Jeffrey Thomas Platelet mean volume (Bld) [Entitic vol] 11.5 fL Normal 9.5-13.5 [facility] Comment on above: Performed By: #### C MP #### [facility] [address] [place] [address] Dr. Jeffrey Thomas PLT 241 103/ul Normal 150-450 [facility] Comment on above: Performed By: #### C MP #### [facility] [address] [address] [address] Jeffrey Thomas RBC 4.20 106/ul Normal 4.20-5.40 [facility] Comment on above: Performed By: #### C MP #### [facility] [address] [place] [address] Dr. Jeffrey Thomas WBC 5.9 103/ul Normal 4.0-11.0 [facility] Comment on above: Performed By: #### C MP #### [facility] [address] [place] [address] Dr. Jeffrey Thomas BASO # 0.1 103/ul Normal 0.0-0.1 [facility] Comment on above: Performed By: #### A MM #### [facility] [address] [place] [address] Dr. Jeffrey Thomas Basophils/100 WBC (Bld) 1.7 % Normal 0.2-2.0 [facility] Comment on above: Performed By: #### A MM #### [facility] [address] [place] [address] Dr. Jeffrey Thomas EO # 0.1 103/ul Normal 0.0-0.7 [facility] Comment on above: Performed By: #### A MM #### [facility] [address] [place] [address] Dr. Jeffrey Thomas Eosinophils/100 WBC (Bld) 1.7 % Normal 0.9-7.0 [facility] Comment on above: Performed By: #### A MM #### [facility] [address] [place] [address] Dr. Jeffrey Thomas Erythrocyte distribution width (RBC) [Ratio] 15.6 % Critically high 11.0-15.0 [facility] Comment on above: Performed By: #### A MM #### [facility] [address] [place] [address] Dr. Jeffrey Thomas Hematocrit (Bld) [Volume fraction] 43.4 % Normal 36.0-48.0 [facility] Comment on above: Performed By: #### A MM #### [facility] [address] [address] [address] Jeffrey Thomas Hemoglobin (Bld) [Mass/Vol] 14.2 g/dL Normal 12.0-16.0 [facility] Comment on above: Performed By: #### A MM #### [facility] [address] [address] [address] Jeffrey Thomas IG # 0.04 10e3/ul Critically high 0.00-0.03 [facility] Comment on above: Performed By: #### A MM #### [facility] [address] [address] [address] Jeffrey Thomas IG % 0.6 % Critically high 0.0-0.5 [facility] Comment on above: Performed By: #### A MM #### [facility] [address] [place] [address] Dr. Jeffrey Thomas LYMPH # 2.2 103/ul Normal 1.2-3.8 [facility] Comment on above: Performed By: #### A MM #### [facility] [address] [place] [address] Dr. Jeffrey Thomas Lymphocytes/100 WBC (Bld) 32.7 % Normal 20.5-60.0 [facility] Comment on above: Performed By: #### A MM #### [facility] [address] [place] [address] Dr. Jeffrey Thomas MANUAL DIFF REQ NO Normal [facility] Comment on above: Performed By: #### A MM #### [facility] [address] [address] [address] Jeffrey Thomas MCH (RBC) [Entitic mass] 31.3 pg Normal 26.7-34.0 [facility] Comment on above: Performed By: #### A MM #### [facility] [address] [place] [address] Dr. Jeffrey Thomas MCHC (RBC) [Mass/Vol] 32.7 g/dL Normal 29.9-35.2 [facility] Comment on above: Performed By: #### A MM #### [facility] [address] [address] [address] Jeffrey Thomas MCV (RBC) [Entitic vol] 95.8 fL Normal 81.0-99.0 [facility] Comment on above: Performed By: #### A MM #### [facility] [address] [place] [address] Dr. Jeffrey Thomas MONO # 0.7 103/ul Normal 0.3-0.8 [facility] Comment on above: Performed By: #### A MM #### [facility] [address] [address] [address] Jeffrey Thomas Monocytes/100 WBC (Bld) 9.9 % Normal 1.7-12.0 [facility] Comment on above: Performed By: #### A MM #### [facility] [address] [place] [address] Dr. Jeffrey Thomas NEUT # 3.5 103/ul Normal 1.4-6.5 [facility] Comment on above: Performed By: #### A MM #### [facility] [address] [place] [address] Dr. Jeffrey Thomas Neutrophils/100 WBC (Bld) 53.4 % Normal 43.0-75.0 [facility] Comment on above: Performed By: #### A MM #### [facility] [address] [place] [address] Dr. Jeffrey Thomas Platelet mean volume (Bld) [Entitic vol] 12.1 fL Normal 9.5-13.5 [facility] Comment on above: Performed By: #### A MM #### [facility] [address] [place] [address] Dr. Jeffrey Thomas PLT 307 103/ul Normal 150-450 [facility] Comment on above: Performed By: #### A MM #### [facility] [address] [place] [address] Dr. Jeffrey Thomas RBC 4.53 106/ul Normal 4.20-5.40 [facility] Comment on above: Performed By: #### A MM #### [facility] [address] [place] [address] Dr. Jeffrey Thomas WBC 6.6 103/ul Normal 4.0-11.0 [facility] Comment on above: Performed By: #### A MM #### [facility] [address] [place] [address] Dr. Jeffrey Thomas Covid-19 PCR ([facility])on 12-01 SARS-CoV-2 (COVID-19) RNA REBECCA+probe Ql (Unsp spec) Not detected Normal NOT DETECTED [facility] Comment on above: Result Comment: When [...] for this test is supported by the [employer] of [employer] and Human Service's declaration that [...] used). Performed By: #### C VDTB #### [facility] [address] [place] [address] Dr. Jeffrey Thomas DRUG SCREEN RAPID (URINE)on 12-12-2021 AMP Negative Normal NEGATIVE [facility] Comment on above: Performed By: #### T 4LC #### [facility] [address] [place] [address] Dr. Jeffrey Thomas BAR Negative Normal NEGATIVE [facility] Comment on above: Performed By: #### T 4LC #### [facility] [address] [place] [address] Dr. Jeffrey Thomas BUP Negative Normal NEGATIVE [facility] Comment on above: Performed By: #### T 4LC #### [facility] [address] [place] [address] Dr. Jeffrey Thomas BZO Positive Abnormal NEGATIVE [facility] Comment on above: Performed By: #### T 4LC #### [facility] [address] [place] [address] Dr. Jeffrey Thomas VIKASH Negative Normal NEGATIVE [facility] Comment on above: Performed By: #### T 4LC #### [facility] [address] [place] [address] Dr. Jeffrey Thomas CUT-OFFS SEE BELOW Normal [facility] Comment on above: Result Comment: AMP [...] ng/mL Performed By: #### T 4LC #### [facility] [address] [place] [address] Dr. Jeffrey Thomas DRUG CUT HEADER DRUG CLASS TEST SYSTEM CUT-OFF CONCENTRATIONS ARE FOLLOWS: Normal [facility] Comment on above: Performed By: #### T 4LC #### [facility] [address] [place] [address] Dr. Jeffrey Thomas mAMP Negative Normal NEGATIVE [facility] Comment on above: Performed By: #### T 4LC #### [facility] [address] [place] [address] Dr. Jeffrey Thomas MTD Negative Normal NEGATIVE [facility] Comment on above: Performed By: #### T 4LC #### [facility] [address] [place] [address] Dr. Jeffrey Thomas OPI Negative Normal NEGATIVE [facility] Comment on above: Performed By: #### T 4LC #### [facility] [address] [place] [address] Dr. Jeffrey Thomas OXY Negative Normal NEGATIVE [facility] Comment on above: Performed By: #### T 4LC #### [facility] [address] [place] [address] Dr. Jeffrey Thomas PCP Negative Normal NEGATIVE [facility] Comment on above: Performed By: #### T 4LC #### [facility] [address] [place] [address] Dr. Jeffrey Thomas PPX Negative Normal NEGATIVE [facility] Comment on above: Performed By: #### T 4LC #### [facility] [address] [place] [address] Dr. Jeffrey Thomas TCA Positive Abnormal NEGATIVE [facility] Comment on above: Performed By: #### T 4LC #### [facility] [address] [place] [address] Dr. Jeffrey Thomas THC Negative Normal NEGATIVE [facility] Comment on above: Performed By: #### T 4LC #### [facility] [address] [place] [address] Dr. Jeffrey Thomas AMP Negative Normal NEGATIVE [facility] Comment on above: Performed By: #### C MP #### [facility] [address] [place] [address] Dr. Jeffrey Thomas BAR Negative Normal NEGATIVE [facility] Comment on above: Performed By: #### C MP #### [facility] [address] [place] [address] Dr. Jeffrey Thomas BUP Negative Normal NEGATIVE [facility] Comment on above: Performed By: #### C MP #### [facility] [address] [place] [address] Dr. Jeffrey Thomas BZO Positive Abnormal NEGATIVE [facility] Comment on above: Performed By: #### C MP #### [facility] [address] [place] [address] Dr. Jeffrey Thomas VIKASH Negative Normal NEGATIVE [facility] Comment on above: Performed By: #### C MP #### [facility] [address] [place] [address] Dr. Jeffrey Thomas CUT-OFFS SEE BELOW Normal [facility] Comment on above: Result Comment: AMP [...] ng/mL Performed By: #### C MP #### [facility] [address] [place] [address] Dr. Jeffrey Thomas DRUG CUT HEADER DRUG CLASS TEST SYSTEM CUT-OFF CONCENTRATIONS ARE FOLLOWS: Normal [facility] Comment on above: Performed By: #### C MP #### [facility] [address] [place] [address] Dr. Jeffrey Thomas mAMP Negative Normal NEGATIVE [facility] Comment on above: Performed By: #### C MP #### [facility] [address] [place] [address] Dr. Jeffrey Thomas MTD Negative Normal NEGATIVE [facility] Comment on above: Performed By: #### C MP #### [facility] [address] [place] [address] Dr. Jeffrey Thomas OPI Negative Normal NEGATIVE [facility] Comment on above: Performed By: #### C MP #### [facility] [address] [place] [address] Dr. Jeffrey Thomas OXY Negative Normal NEGATIVE [facility] Comment on above: Performed By: #### C MP #### [facility] [address] [place] [address] Dr. Jeffrey Thomas PCP Negative Normal NEGATIVE [facility] Comment on above: Performed By: #### C MP #### [facility] [address] [place] [address] Dr. Jeffrey Thomas PPX Negative Normal NEGATIVE [facility] Comment on above: Performed By: #### C MP #### [facility] [address] [place] [address] Dr. Jeffrey Thomas TCA Positive Abnormal NEGATIVE [facility] Comment on above: Performed By: #### C MP #### [facility] [address] [place] [address] Dr. Jeffrey Thomas THC Negative Normal NEGATIVE [facility] Comment on above: Performed By: #### C MP #### [facility] [address] [place] [address] Dr. Jeffrey Thomas ER URINE PROFILEon 2 Bilirubin Ql (U) SMALL Abnormal NEGATIVE [facility] Comment on above: Performed By: #### C MP #### [facility] [address] [place] [address] Dr. Jeffrey Thomas Clarity (U) CLEAR Normal CLEAR [facility] Comment on above: Performed By: #### C MP #### [facility] [address] [place] [address] Dr. Jeffrey Thomas Color (U) YELLOW Normal YELLOW [facility] Comment on above: Performed By: #### C MP #### [facility] [address] [place] [address] Dr. Jeffrey AVERYMike A micrscopic examination will be performed if indicated. Normal [facility] Comment on above: Performed By: #### C MP #### [facility] [address] [place] [address] Dr. Jeffrey Thomas Glucose Ql (U) Negative Normal NEGATIVE [facility] Comment on above: Performed By: #### C MP #### [facility] [address] [place] [address] Dr. Jeffrey Thomas Hemoglobin Ql (U) Negative Normal NEGATIVE [facility] Comment on above: Performed By: #### C MP #### [facility] [address] [place] [address] Dr. Jeffrey Thomas Ketones Ql (U) Negative Normal NEGATIVE [facility] Comment on above: Performed By: #### C MP #### [facility] [address] [place] [address] Dr. Jeffrey Thomas LEUKOCYTES Negative Normal NEGATIVE [facility] Comment on above: Performed By: #### C MP #### [facility] [address] [place] [address] Dr. Jeffrey Thomas Nitrite Ql (U) Negative Normal NEGATIVE [facility] Comment on above: Performed By: #### C MP #### [facility] [address] [place] [address] Dr. Jeffrey Thomas pH (U) 5.0 [pH] Normal 5-9 [facility] Comment on above: Performed By: #### C MP #### [facility] [address] [place] [address] Dr. Jeffrey Thomas SPEC GRAVITY 1.025 Normal 1.005-<=1.02 5 [facility] Comment on above: Performed By: #### C MP #### [facility] [address] [place] [address] Dr. Jeffrey Thomas UA PROTEIN Negative Normal NEGATIVE/ TRACE [facility] Comment on above: Performed By: #### C MP #### [facility] [address] [place] [address] Dr. Jeffrey Thomas UR MICRO IND NOT INDICATED Normal [facility] Comment on above: Performed By: #### C MP #### [facility] [address] [place] [address] Dr. Jeffrey Thomas Urobilinogen Qn (U) 0.2 {Bere'U}/dL Normal 0.2 - 1. 0 [facility] Comment on above: Performed By: #### C MP #### [facility] [address] [place] [address] Dr. Jeffrey Thomas PROF 14(COMP METB)on 022 Albumin [Mass/Vol] 2.9 g/dL Critically low 3.4-5.0 [facility] Comment on above: Performed By: #### C MP #### [facility] [address] [place] [address] Dr. Jeffrey Thomas Albumin/Globulin [Mass ratio] 1.0 {ratio} Normal [facility] Comment on above: Performed By: #### C MP #### [facility] [address] [place] [address] Dr. Jeffrey Thomas ALP [Catalytic activity/Vol] 116 U/L Normal 46-116 [facility] Comment on above: Performed By: #### C MP #### [facility] [address] [address] [address] Jeffrey Thomas ALT [Catalytic activity/Vol] 12 U/L Critically low 14-59 [facility] Comment on above: Performed By: #### C MP #### [facility] [address] [address] [address] Jeffrey Thomas Anion gap [Moles/Vol] 11.8 mmol/L Normal Th [facility] Comment on above: Performed By: #### C MP #### [facility] [address] [address] [address] Jeffrey Thomas AST [Catalytic activity/Vol] 12 U/L Critically low 15-37 [facility] Comment on above: Performed By: #### C MP #### [facility] [address] [place] [address] Dr. Jeffrey Thomas Bilirubin [Mass/Vol] 0.1 mg/dL Critically low 0.2-1.0 [facility] Comment on above: Performed By: #### C MP #### [facility] [address] [address] [address] Jeffrey Thomas Calcium [Mass/Vol] 8.2 mg/dL Critically low 8.5-10.1 [facility] Comment on above: Performed By: #### C MP #### [facility] [address] [address] [address] Jeffrey Thomas Chloride [Moles/Vol] 111 mmol/L Critically high 98-107 [facility] Comment on above: Performed By: #### C MP #### [facility] [address] [address] [address] Jeffrey Thomas CO2 [Moles/Vol] 20.2 mmol/L Critically low 21.0-32.0 [facility] Comment on above: Performed By: #### C MP #### [facility] [address] [address] [address] Jeffrey Thomas Creatinine [Mass/Vol] 1.26 mg/dL Critically high 0.55-1.02 [facility] Comment on above: Performed By: #### C MP #### [facility] [address] [place] [address] Dr. Jeffrey Thomas EGFR-AF [place] 52 mL/min/1.73m2 Critically low >=60 [facility] Comment on above: Performed By: #### C MP #### [facility] [address] [address] [address] Jeffrey Thomas EGFR-NON AF [place] 43 mL/min/1.73m2 Critically low >=60 [facility] Comment on above: Performed By: #### C MP #### [facility] [address] [place] [address] Dr. Jeffrey Thomas Globulin (S) [Mass/Vol] 3.0 g/dL Normal [facility] Comment on above: Performed By: #### C MP #### [facility] [address] [place] [address] Dr. Jeffrey Thomas Glucose [Mass/Vol] 131 mg/dL Critically high 74-106 [facility] Comment on above: Performed By: #### C MP #### [facility] [address] [place] [address] Dr. Jeffrey Thomas Potassium [Moles/Vol] 4.0 mmol/L Normal 3.5-5.1 [facility] Comment on above: Performed By: #### C MP #### [facility] [address] [address] [address] Jeffrey Thomas Protein [Mass/Vol] 5.9 g/dL Critically low 6.4-8.2 Th [facility] Comment on above: Performed By: #### C MP #### [facility] [address] [address] [address] Jeffrey Thomas Sodium [Moles/Vol] 139 mmol/L Normal 136-145 [facility] Comment on above: Performed By: #### C MP #### [facility] [address] [address] [address] Jeffrey Thomas Urea nitrogen [Mass/Vol] 30.0 mg/dL Critically high 7.0-18.0 [facility] Comment on above: Performed By: #### C MP #### [facility] [address] [place] [address] Dr. Jeffrey Thomas Urea nitrogen/Creatinine [Mass ratio] 23.8 mg/mg Normal [facility] Comment on above: Performed By: #### C MP #### [facility] [address] [place] [address] Dr. Jeffrey Thomas Albumin [Mass/Vol] 3.1 g/dL Critically low 3.4-5.0 [facility] Comment on above: Performed By: #### C MP #### [facility] [address] [place] [address] Dr. Jeffrey Thomas Albumin/Globulin [Mass ratio] 1.0 {ratio} Normal [facility] Comment on above: Performed By: #### C MP #### [facility] [address] [place] [address] Dr. Jeffrey Thomas ALP [Catalytic activity/Vol] 119 U/L Critically high 46-116 [facility] Comment on above: Performed By: #### C MP #### [facility] [address] [place] [address] Dr. Jeffrey Thomas ALT [Catalytic activity/Vol] 13 U/L Critically low 14-59 [facility] Comment on above: Performed By: #### C MP #### [facility] [address] [place] [address] Dr. Jeffrey Thomas Anion gap [Moles/Vol] 11.9 mmol/L Normal [facility] Comment on above: Performed By: #### C MP #### [facility] [address] [place] [address] Dr. Jeffrey Thomas AST [Catalytic activity/Vol] 15 U/L Normal 15-37 [facility] Comment on above: Performed By: #### C MP #### [facility] [address] [place] [address] Dr. Jeffrey Thomas Bilirubin [Mass/Vol] 0.3 mg/dL Normal 0.2-1.0 [facility] Comment on above: Performed By: #### C MP #### [facility] [address] [address] [address] Jeffrey Thomas Calcium [Mass/Vol] 8.5 mg/dL Normal 8.5-10.1 [facility] Comment on above: Performed By: #### C MP #### [facility] [address] [address] [address] Jeffrey Thomas Chloride [Moles/Vol] 109 mmol/L Critically high 98-107 [facility] Comment on above: Performed By: #### C MP #### [facility] [address] [address] [address] Jeffrey Thomas CO2 [Moles/Vol] 21.9 mmol/L Normal 21.0-32.0 [facility] Comment on above: Performed By: #### C MP #### [facility] [address] [address] [address] Jeffrey Thomas Creatinine [Mass/Vol] 1.18 mg/dL Critically high 0.55-1.02 [facility] Comment on above: Performed By: #### C MP #### [facility] [address] [address] [address] Jeffrey Thomas EGFR-AF [place] 56 mL/min/1.73m2 Critically low >=60 [facility] Comment on above: Performed By: #### C MP #### [facility] [address] [address] [address] Jeffrey Thomas EGFR-NON AF [place] 46 mL/min/1.73m2 Critically low >=60 [facility] Comment on above: Performed By: #### C MP #### [facility] [address] [address] [address] Jeffrey Thomas Globulin (S) [Mass/Vol] 3.1 g/dL Normal [facility] Comment on above: Performed By: #### C MP #### [facility] [address] [address] [address] Jeffrey Thomas Glucose [Mass/Vol] 94 mg/dL Normal 74-106 [facility] Comment on above: Performed By: #### C MP #### [facility] [address] [address] [address] Jeffrey Thomas Potassium [Moles/Vol] 3.8 mmol/L Normal 3.5-5.1 [facility] Comment on above: Performed By: #### C MP #### [facility] [address] [address] [address] Jeffrey Thomas Protein [Mass/Vol] 6.2 g/dL Critically low 6.4-8.2 [facility] Comment on above: Performed By: #### C MP #### [facility] [address] [address] [address] Jeffrey Thomas Sodium [Moles/Vol] 139 mmol/L Normal 136-145 [facility] Comment on above: Performed By: #### C MP #### [facility] [address] [address] [address] Jeffrey Thomas Urea nitrogen [Mass/Vol] 27.0 mg/dL Critically high 7.0-18.0 [facility] Comment on above: Performed By: #### C MP #### [facility] [address] [address] [address] Jeffrey Thomas Urea nitrogen/Creatinine [Mass ratio] 22.9 mg/mg [facility] Comment on above: Performed By: #### C MP #### [facility] [address] [address] [address] Jeffrey Thomas Albumin [Mass/Vol] 3.3 g/dL Critically low 3.4-5.0 [facility] Comment on above: Performed By: #### A MM #### [facility] [address] [address] [address] Jeffrey Thomas Albumin/Globulin [Mass ratio] 1.0 {ratio} Normal [facility] Comment on above: Performed By: #### A MM #### [facility] [address] [place] [address] Dr. Jeffrey Thomas ALP [Catalytic activity/Vol] 127 U/L Critically high 46-116 [facility] Comment on above: Performed By: #### A MM #### [facility] [address] [address] [address] Jeffrey Thomas ALT [Catalytic activity/Vol] 10 U/L Critically low 14-59 [facility] Comment on above: Performed By: #### A MM #### [facility] [address] [place] [address] Dr. Jeffrey Thomas Anion gap [Moles/Vol] 12.9 mmol/L Normal [facility] Comment on above: Performed By: #### A MM #### [facility] [address] [address] [address] Jeffrey Thomas AST [Catalytic activity/Vol] 20 U/L Normal 15-37 [facility] Comment on above: Performed By: #### A MM #### [facility] [address] [place] [address] Dr. Jeffrey Thomas Bilirubin [Mass/Vol] 0.3 mg/dL Normal 0.2-1.0 [facility] Comment on above: Performed By: #### A MM #### [facility] [address] [place] [address] Dr. Jeffrey Thomas Calcium [Mass/Vol] 8.9 mg/dL Normal 8.5-10.1 [facility] Comment on above: Performed By: #### A MM #### [facility] [address] [place] [address] Dr. Jeffrey Thomas Chloride [Moles/Vol] 106 mmol/L Normal 98-107 [facility] Comment on above: Performed By: #### A MM #### [facility] [address] [place] [address] Dr. Jeffrey Thomas CO2 [Moles/Vol] 21.8 mmol/L Normal 21.0-32.0 [facility] Comment on above: Performed By: #### A MM #### [facility] [address] [place] [address] Dr. Jeffrey Thomas Creatinine [Mass/Vol] 1.54 mg/dL Critically high 0.55-1.02 [facility] Comment on above: Performed By: #### A MM #### [facility] [address] [place] [address] Dr. Jeffrey Thomas EGFR-AF [place] 41 mL/min/1.73m2 Critically low >=60 [facility] Comment on above: Performed By: #### A MM #### [facility] [address] [address] [address] Jeffrey Thomas EGFR-NON AF [place] 34 mL/min/1.73m2 Critically low >=60 [facility] Comment on above: Performed By: #### A MM #### [facility] [address] [address] [address] Jeffrey Thomas Globulin (S) [Mass/Vol] 3.4 g/dL Normal [facility] Comment on above: Performed By: #### A MM #### [facility] [address] [address] [address] Jeffrey Thomas Glucose [Mass/Vol] 139 mg/dL Critically high 74-106 [facility] Comment on above: Performed By: #### A MM #### [facility] [address] [address] [address] Jeffrey Thomas Potassium [Moles/Vol] 3.7 mmol/L Normal 3.5-5.1 [facility] Comment on above: Performed By: #### A MM #### [facility] [address] [address] [address] Jeffrey Thomas Protein [Mass/Vol] 6.7 g/dL Normal 6.4-8.2 [facility] Comment on above: Performed By: #### A MM #### [facility] [address] [address] [address] Jeffrey Thomas Sodium [Moles/Vol] 139 mmol/L Normal 136-145 [facility] Comment on above: Performed By: #### A MM #### [facility] [address] [address] [address] Jeffrey Thomas Urea nitrogen [Mass/Vol] 31.0 mg/dL Critically high 7.0-18.0 [facility] Comment on above: Performed By: #### A MM #### [facility] [address] [address] [address] Jeffrey Thomas Urea nitrogen/Creatinine [Mass ratio] 20.1 mg/mg Normal [facility] Comment on above: Performed By: #### A MM #### [facility] [address] [place] [address] Dr. Jeffrey Thomas PROTIMEon 12-12-2021 INR Coag (PPP) [Relative time] 1.13 {INR} Normal [facility] Comment on above: Performed By: #### T 4LC #### [facility] [address] [place] [address] Dr. Jeffrey Thomas INR GUIDELINES SEE BELOW Normal [facility] Comment on above: Result Comment: MERARI RED INR: 2.0 - 3.0 CONDITIONS NOT LISTED BELOW 2.5 - 3.5 FOR PROSTHETIC HEART VALVE REPLACEMENT 2.5 - 3.5 RECURRENT THROMBOSIS Performed By: #### T 4LC #### [facility] [address] [place] [address] Dr. Jeffrey Thomas PT Coag (PPP) [Time] 12.1 s Critically high 9.0-11.6 [facility] Comment on above: Performed By: #### T 4LC #### [facility] [address] [place] [address] Dr. Jeffrey Thomas TSHon 12-12-2021 TSH 0.729 uIU/mL Normal 0.358-3.740 [facility] Comment on above: Performed By: #### C MP #### [facility] [address] [place] [address] Dr. Jeffrey Thomas XR CHEST 1 Von [...] GUILLE RAY Date: 2021-12-11 23:48 Normal [facility] PT Coag (PPP) [Time]on 01-08 INR Coag (PPP) [Relative time] 1.5 {INR} <=5.0 [facility] Comment on above: The recommended ther apeutic INR range for most cardiac indications is 2.0-3.0 For high intensity therapy (i.e. mechanical heart valves), the recommended range is 2.5-3.5 Interpretation and review of laboratory results Abnormal [facility] PT Coag (Bld) [Time] 18.1 s High [facility] Basic metabolic 2000 panelon 01-07-2021 Calcium [Mass/Vol] 8.8 mg/dL Normal 8.5-10.6 [facility] Chloride [Moles/Vol] 107 mmol/L Normal 98-107 Moun [facility] CO2 [Moles/Vol] 25 mmol/L Normal 21-32 [facility] Creatinine [Mass/Vol] 1.87 mg/dL High 0.55-1.02 [facility] Glucose [Mass/Vol] 96 mg/dL Normal 70-99 [facility] Potassium [Moles/Vol] 4.5 mmol/L Normal 3.5-5.1 [facility] Sodium [Moles/Vol] 141 mmol/L Normal 136-145 [facility] Urea nitrogen (BldV) [Mass/Vol] 27 mg/dL High 7.0-18.0 [facility] Urea nitrogen/Creatinine [Mass ratio] 14 mg/mg Normal [facility] Coronavirus (COVID-19/SARS-C oV-2) RAPIDon 01-07-2021 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 N Normal [facility] First test N Normal [facility] ICU N Normal [facility] Illness or injury onset date and time Normal [facility] Patient was hospitalized because of this condition Y Normal [facility] status N Normal [facility] Resides in congregate care setting N Normal [facility] SARS-CoV-2 (COVID-19) RNA REBECCA+probe Ql (Resp) Not detected Normal NDET [facility] Comment on above: Result Comment: This test was performed via the [employer] NOW COVID 19 assay and has been authorized by FDA under an Emergency Use Authorization (EUA). The assay is validated for nasopharyngeal (LEGAL SUMMER [employer]N), nasal, and oropharyngeal (OP) direct swabs. The [...] www.cdc.gov/coronavirus. Symptomatic as defined by CDC N [facility] Gentamicin Trough Levelon Gentamicin trough [Mass/Vol] 1.0 mg/L Normal [facility] Comment on above: Result Comment: Refe rence range: 0.0 to 2.0 Unit: UG/ML PT Coag (PPP) [Time]on 01-07 INR Coag (Bld) [Relative time] 1.3 {INR} Normal [facility] Comment on above: Order Comment: Preho [...] (PPP) [Time] 15.7 s High 11.9-14.6 [facility] Comment on above: Order Comment: Preho spitalization had reported chronic use of Coumadin which was held for surgery. Tobramycin random [Moles/Vol ]on 01-07-2021 Tobramycin [Mass/Vol] SEE SEPARATE REPORT Normal 0.5-1 .5 [facility] Comment on above: Result Comment: SEE NOTES REVIEW TAB FOR RESULTS Basic metabolic 2000 panelon 01-06-2021 Calcium [Mass/Vol] 8.6 mg/dL Normal 8.5-10.6 [facility] Chloride [Moles/Vol] 107 mmol/L Normal 98-107 [facility] CO2 [Moles/Vol] 24 mmol/L Normal 21-32 [facility] Creatinine [Mass/Vol] 1.82 mg/dL High 0.55-1.02 Arin nt [facility] Glucose [Mass/Vol] 87 mg/dL Normal 70-99 [facility] Potassium [Moles/Vol] 4.8 mmol/L Normal 3.5-5.1 [facility] Sodium [Moles/Vol] 140 mmol/L Normal 136-145 [facility] Urea nitrogen (BldV) [Mass/Vol] 30 mg/dL High 7.0-18.0 [facility] Urea nitrogen/Creatinine [Mass ratio] 16 mg/mg Normal [facility] Hematocriton 01-06-2021 Hematocrit (Bld) [Volume fraction] 28.9 % Low 34.0-50.0 [facility] Hemoglobinon 01-06-2021 Hemoglobin (Bld) [Mass/Vol] 9.4 g/dL Low 11.5-17.0 [facility] Histopathology Requeston Relevant diagnostic tests/laboratory data Narrative SPECIMEN DESCRIPTION 1 LEFT KNEE TISSUE RESULT SEE SEPARATE REPORT RESULT SEE NOTES REVIEW TAB FOR RESULTS ROUTINE LAB Report Date: 01/06/2021 09:09:05 Collect Date: 01/03/2021 12:44:00 Normal [facility] PT Coag (PPP) [Time]on 01-06 INR Coag (Bld) [Relative time] 1.1 {INR} Normal [facility] Comment on above: Order Comment: Preho spitalization had reported chronic use of Coumadin which was held for surgery. Result Comment: NOEMÍ GOMEZ THE INDUCTION PHASE OF ORAL ANTICOAGULATION, THE INR MAY NOT REFLECT THE ANTICOAGULANT STATUS OF THE PATIENT. THERAPEUTIC RANGES FOR INR'S ARE: MOST CLINICAL SITUATIONS: INR 2.0-3.0 MECHANICAL PROSTHETIC VALVES: INR 2.5-3.5 CRITICAL: INR 5.0 Prothrombin Timeon 10-07-202 1 PT Coag (PPP) [Time] 14.2 s Normal 11.9-14.6 M[facility] Comment on above: Order Comment: Preho spitalization had reported chronic use of Coumadin which was held for surgery. Basic metabolic 2000 panelon 01-05-2021 Calcium [Mass/Vol] 8.1 mg/dL Low 8.5-10.6 [facility] Chloride [Moles/Vol] 108 mmol/L High 98-107 Moun [facility] CO2 [Moles/Vol] 27 mmol/L Normal 21-32 [facility] Creatinine [Mass/Vol] 2.05 mg/dL High 0.55-1.02 [facility] Glucose [Mass/Vol] 91 mg/dL Normal 70-99 [facility] Potassium [Moles/Vol] 4.7 mmol/L Normal 3.5-5.1 [facility] Sodium [Moles/Vol] 141 mmol/L Normal 136-145 [facility] Urea nitrogen (BldV) [Mass/Vol] 36 mg/dL High 7.0-18.0 [facility] Urea nitrogen/Creatinine [Mass ratio] 18 mg/mg Normal [facility] CBC W Auto Differential pane l (Bld)on 01-05-2021 Basophils (Bld) [#/Vol] 0.1 thou/mcL Normal 0.0-0.2 [facility] Basophils/100 WBC (Bld) 0.9 % Normal 0-3 [facility] Differential cell count method Nom (Bld) AUTOMATED DIFFERENTIAL Normal [facility] Eosinophils (Bld) [#/Vol] 0.2 thou/mcL Normal 0.0-0.4 [facility] Eosinophils/100 WBC (Bld) 2.2 % Normal 0-7 [facility] Erythrocyte distribution width (RBC) [Entitic vol] 16.0 % High 11.7-15.0 [facility] Hematocrit (Bld) [Volume fraction] 21.4 % Low 34.0-50.0 [facility] Hemoglobin (Bld) [Mass/Vol] 6.8 g/dL Off scale low 11.5-17.0 [facility] Comment on above: Result Comment: RESU LTS VERIFIED AND CALLED TO/READ BACK BY ALFONSO HILARIO 10.6.21 @0559.BA Lymphocytes (Bld) [#/Vol] 0.9 thou/mcL Normal 0.7-4.5 [facility] Lymphocytes/100 WBC (Bld) 12.7 % Low 14-46 [facility] MCH (RBC) [Entitic mass] 27.2 Picograms Normal 27.0-34.0 [facility] MCHC (RBC) [Mass/Vol] 31.8 g/dL Low 32.0-36.0 Arin nt [facility] MCV (RBC) [Entitic vol] 85.5 fL Normal 80-98 [facility] Monocytes (Bld) [#/Vol] 0.6 thou/mcL Normal 0.1-1.0 [facility] Monocytes/100 WBC (Bld) 8.1 % Normal 4-13 [facility] Neutrophils (Bld) [#/Vol] 5.7 thou/mcL Normal 1.5-7.8 [facility] Neutrophils/100 WBC (Bld) 76.1 % High 40-74 [facility] Platelet mean volume (Bld) [Entitic vol] 10.5 fL Normal 7.5-11.2 [facility] Platelets (Bld) [#/Vol] 141 thou/mcL Normal 140-415 [facility] RBC (Bld) [#/Vol] 2.50 x(10)6/mcL Low 3.80-5.60 Mo [facility] WBC (Bld) [#/Vol] 7.5 thou/mcL Normal 4.0-10.5 [facility] Gentamicin Trough Levelon Gentamicin trough [Mass/Vol] 3.9 mg/L Critically high [facility] Comment on above: Result Comment: Refe michelle range: 0.0 to 2.0 Unit: UG/ML (NOTE) Critical value(s) on tests gentt called to and read-back by clementine nuñez , at location [facility] by time called _01/05/21 12:20 Hematocriton 01-05-2021 Hematocrit (Bld) [Volume fraction] 27.2 % Low 34.0-50.0 [facility] Hemoglobinon 01-05-2021 Hemoglobin (Bld) [Mass/Vol] 8.8 g/dL Low 11.5-17.0 [facility] PT Coag (PPP) [Time]on 01-05 INR Coag (Bld) [Relative time] 1.1 {INR} Normal [facility] Comment on above: Order Comment: Preho [...] Pathology studyon 01-05-2021 Case report TRINITY GODINEZ [id number] YRS F [id number] RM/BD [id number] ORDERING PHYSICIAN: CALOS SMITH [...] cut surface is rogers-pink, soft and homogeneous. Wire Hanger sections are submitted in block A1. (RS/1C/MS/RT) Gross examination was performed at [facility]. AJB:MEI 01/04/21 By: LICHA ZEPEDA M.D. (Electronic Signature) MICROSCOPIC: The technical component was performed at [facility], [address] [place] [address]. Microscopic examination was performed. Case resulted at [facility]. DIAGNOSIS: Left knee tissue, revision arthroplasty: -DENSE FIBROUS TISSUE WITH PATCHY CHRONIC INFLAMMATION, FOREIGN BODY GIANT CELL REACTION, AND OSSEOUS METAPLASIA. NOTE: Perivascular lymphocytic inflammation is mild and patchy. JH2:JH2:JH210/09/20 END OF REPORT [facility] Comment on above: END OF REPORT [facility] [facility] Timeon PT Coag (PPP) [Time] 14.5 s Normal 11.9-14.6 Moun [facility] Comment on above: Order Comment: Preho spitalization had reported chronic use of Coumadin which was held for surgery. Rh Confirm Nom (Bld)on 01-05 ABO group Nom (Bld) A Normal [facility] Rh Nom (Bld) Positive Normal [facility] Tobramycin random [Moles/Vol ]on 01-05-2021 Tobramycin [Mass/Vol] SEE SEPARATE REPORT Normal 0.5-1 .5 [facility] Comment on above: Result Comment: SEE NOTES REVIEW TAB FOR RESULTS Vancomycin [Moles/Vol]on Vancomycin random [Mass/Vol] <3.5 Off scale low 10.0-50.0 [facility] Basic metabolic 2000 panelon 01-04-2021 Calcium [Mass/Vol] 8.5 mg/dL Normal 8.5-10.6 [facility] Chloride [Moles/Vol] 104 mmol/L Normal 98-107 Moun [facility] CO2 [Moles/Vol] 26 mmol/L Normal 21-32 [facility] Creatinine [Mass/Vol] 2.32 mg/dL High 0.55-1.02 [facility] Glucose [Mass/Vol] 90 mg/dL Normal 70-99 [facility] Potassium [Moles/Vol] 5.7 mmol/L Critically high 3.5-5.1 [facility] Comment on above: Result Comment: RESU LTS VERIFIED AND CALLED TO/READ BACK BY ABRAM MCQUEEN .08.20 @ 7849. BA Sodium [Moles/Vol] 138 mmol/L Normal 136-145 [facility] Urea nitrogen (BldV) [Mass/Vol] 45 mg/dL High 7.0-18.0 [facility] Urea nitrogen/Creatinine [Mass ratio] 19 mg/mg Normal [facility] CBC W Auto Differential pane l (Bld)on 01-04-2021 Basophils (Bld) [#/Vol] 0.0 thou/mcL Normal 0.0-0.2 [facility] Basophils/100 WBC (Bld) 0.3 % Normal 0-3 [facility] Differential cell count method Nom (Bld) AUTOMATED DIFFERENTIAL Normal [facility] Eosinophils (Bld) [#/Vol] 0.0 thou/mcL Normal 0.0-0.4 [facility] Eosinophils/100 WBC (Bld) 0.2 % Normal 0-7 [facility] Erythrocyte distribution width (RBC) [Entitic vol] 15.5 % High 11.7-15.0 [facility] Hematocrit (Bld) [Volume fraction] 23.5 % Low 34.0-50.0 [facility] Hemoglobin (Bld) [Mass/Vol] 7.5 g/dL Low 11.5-17.0 [facility] Lymphocytes (Bld) [#/Vol] 1.0 thou/mcL Normal 0.7-4.5 [facility] Lymphocytes/100 WBC (Bld) 13.3 % Low 14-46 [facility] MCH (RBC) [Entitic mass] 27.4 Picograms Normal 27.0-34.0 [facility] MCHC (RBC) [Mass/Vol] 32.0 g/dL Normal 32.0-36.0 [facility] MCV (RBC) [Entitic vol] 85.5 fL Normal 80-98 [facility] Monocytes (Bld) [#/Vol] 0.6 thou/mcL Normal 0.1-1.0 [facility] Monocytes/100 WBC (Bld) 7.5 % Normal 4-13 [facility] Neutrophils (Bld) [#/Vol] 5.8 thou/mcL Normal 1.5-7.8 [facility] Neutrophils/100 WBC (Bld) 78.7 % High 40-74 [facility] Platelet mean volume (Bld) [Entitic vol] 10.5 fL Normal 7.5-11.2 [facility] Platelets (Bld) [#/Vol] 167 thou/mcL Normal 140-415 [facility] RBC (Bld) [#/Vol] 2.75 x(10)6/mcL Low 3.80-5.60 Mo [facility] WBC (Bld) [#/Vol] 7.3 thou/mcL Normal 4.0-10.5 [facility] PT Coag (PPP) [Time]on 01-04 INR Coag (Bld) [Relative time] 1.0 {INR} Normal [facility] Comment on above: Order Comment: Preho [...] 13.6 s Normal 11.9-14.6 Moun [facility] Comment on above: Order Comment: Preho [...] mid left lung, likely atelectasis or scarring. [place] thanks you for the opportunity to care for your patient. Workstation ID: [id number] - [id number] FINAL REPORT Dictated By: Garo Albarado MD 01/04/2021 11:41 Assigned Physician: Garo Albarado MD Reviewed and Electronically Signed By: Garo Albarado MD 01/04/2021 11:45 Transcribed by: STEW 01/04/2021 11:41 Technologist: [facility] Garo Albarado MD - 01/08/2021 EXAMINATION TYPE: [...] 11:45 Transcribed by: STEW 01/04/2021 11:41 Technologist: [facility] Radiology Study observation (narrative) [facility] XR CHEST 1 VIEWOrdered By: Pawan Albarado on 01-04-2021 [employer] [employer] Work Phone: XR Chest 1 Viewon 01-04-2021 [...] by: STEW 01/04/2021 11:41 Technologist: RAQUEL Normal [facility] Blood type and Indirect anti body screen panel (Bld)on 01-03-2021 Blood group antibody screen Ql Negative Normal NEG [facility] Rh Nom (Bld) Positive Normal [facility] Cell Count Body Fluidon Cell count panel (Body fld) COLOR, FLUID RED Normal [facility] Culture Aerobicon 01-03-2021 Bacteria identified Aer cx Nom (Unsp spec) [facility] Microbiology PROCEDURE: Culture Aerobic SOURCE: Tissue [...] SEEN, NO ORGANISMS SEEN Normal [facility] Comment on above: Performed By: #### 6 34-6 ####[address] Bacteria identified Aer cx Nom (Unsp spec) [facility] Microbiology PROCEDURE: Culture Aerobic SOURCE: Tissue [...] SEEN, NO ORGANISMS SEEN Normal [facility] Comment on above: Performed By: #### 6 34-6 ####[place] [id number] [place], [place] Bacteria identified Aer cx Nom (Unsp spec) [facility] Microbiology PROCEDURE: Culture Aerobic SOURCE: Tissue [...] SEEN, NO ORGANISMS SEEN Normal [facility] Comment on above: Performed By: #### 6 34-6 ####[address] Bacteria identified Aer cx Nom (Unsp spec) [facility] Microbiology PROCEDURE: Culture Aerobic SOURCE: Tissue [...] SEEN, NO ORGANISMS SEEN Normal [facility] Comment on above: Performed By: #### 6 34-6 ####[address] Culture Anaerobicon 01-04-20 Bacteria identified Anaer cx Nom (Unsp spec) [facility] Microbiology PROCEDURE: Culture Anaerobic SOURCE: Tissue [...] 23:34 EDT CONTRIBUTOR_SYSTEM, CO_PN CULTURE IN PROGRESS [facility] Comment on above: Performed By: #### 6 35-3 ####[address] Bacteria identified Anaer cx Nom (Unsp spec) [facility] Microbiology PROCEDURE: Culture Anaerobic SOURCE: Tissue [...] 23:34 EDT CONTRIBUTOR_SYSTEM, CO_PN CULTURE IN PROGRESS [facility] Comment on above: Performed By: #### 6 35-3 ####[address] Bacteria identified Anaer cx Nom (Unsp spec) [facility] Microbiology PROCEDURE: Culture Anaerobic SOURCE: Tissue [...] 23:34 EDT CONTRIBUTOR_SYSTEM, CO_PN CULTURE IN PROGRESS [facility] Comment on above: Performed By: #### 6 35-3 ####[address] Bacteria identified Anaer cx Nom (Unsp spec) [facility] Microbiology PROCEDURE: Culture Anaerobic SOURCE: Tissue [...] 23:34 EDT CONTRIBUTOR_SYSTEM, CO_PN CULTURE IN PROGRESS [facility] Comment on above: Performed By: #### 6 35-3 ####[address] Bacteria identified Anaer cx Nom (Unsp spec) [facility] Microbiology PROCEDURE: Culture Anaerobic SOURCE: Joint [...] 22:43 EDT CONTRIBUTOR_SYSTEM, CO_PN CULTURE IN PROGRESS Normal [facility] Comment on above: Performed By: #### 6 35-3 ####[place] [address] [place], [place] Culture Funguson 01-03-2021 Fungus identified Cx Nom (Unsp spec) [facility] Microbiology PROCEDURE: Culture Fungus SOURCE: Tissue [...] CULTURE WILL BE HELD FOR 1-4 WEEKS [facility] Comment on above: Performed By: #### 5 80-1 ####[address] Fungus identified Cx Nom (Unsp spec) [facility] Microbiology PROCEDURE: Culture Fungus SOURCE: Tissue [...] CULTURE WILL BE HELD FOR 1-4 WEEKS [facility] Comment on above: Performed By: #### 5 80-1 ####[address] Fungus identified Cx Nom (Unsp spec) [facility] Microbiology PROCEDURE: Culture Fungus SOURCE: Tissue [...] CULTURE WILL BE HELD FOR 1-4 WEEKS [facility] Comment on above: Performed By: #### 5 80-1 ####[address] Fungus identified Cx Nom (Unsp spec) [facility] Microbiology PROCEDURE: Culture Fungus SOURCE: Tissue [...] HELD FOR 1-4 WEEKS Normal [facility] Comment on above: Performed By: #### 5 80-1 ####[address] Fungus identified Cx Nom (Unsp spec) [facility] Microbiology PROCEDURE: Culture Fungus SOURCE: Joint [...] HELD FOR 1-4 WEEKS Normal [facility] Comment on above: Performed By: #### 5 80-1 ####[address] Hematocriton 01-03-2021 Hematocrit (Bld) [Volume fraction] 31.6 % Low 34.0-50.0 [facility] Hemoglobinon 01-03-2021 Hemoglobin (Bld) [Mass/Vol] 10.4 g/dL Low 11.5-17.0 [facility] OR Nursingon 01-03-2021 OR Nursing Normal [facility] PACU I Nursingon 01-03-2021 PACU I Nursing CO NA PACU I Nursing Record Summary Primary Physician: Calos Smith Jr, MD Finalized Date/Time: 01/03/21 15:55:58 Pt. Name: TRINITY GODINEZ Pawan Mckeon/Sex: 1955 Female Med Rec #: [id number] Physician: Calos Smith Jr, MD Financial #: [id number] Pt. Type: I Room/Bed: / Admit/Disch: 01/03/21 09:09:00 - Institution: [facility] NA OR Main PACU I Case Times Entry 1 In PACU I 01/03/21 14:45:00 Ready for PACU I 01/03/21 15:54:00 Discharge Discharge from PACU 01/03/21 15:54:00 PACU I Discharge NA I Delay Reason Last Modified By: Taryn Leonard RN 01/03/21 15:55:55 CO NA OR Main PACU I Case Attendees Entry 1 Case Attendee Taryn Leonard RN RN Last Modified By: Taryn Leonard RN 01/03/21 14:44:54 Finalized By: Taryn Leonard RN Document Signatures Signed By: Taryn Leonard RN 01/03/21 15:55 Normal [facility] PT Coag (PPP) [Time]on 01-03 INR Coag (Bld) [Relative time] 1.1 {INR} Normal [facility] Comment on above: Result Comment: DURI [...] Finalized Date/Time: 01/03/21 12:12:45 Pt. Name: TRINITY GODINEZ/Sex: 1955 Female Med Rec #: [id number] Physician: Calos Smith Jr, MD Financial #: [id number] Pt. Type: I Room/Bed: / Admit/Disch: 01/03/21 [...] RN, I 01/03/21 12:12 Normal [facility] Prothrombin Timeon 1 PT Coag (PPP) [Time] 13.7 s Normal 11.9-14.6 Moun t [facility] Surgical Pathology Final Rep tom 01-03-2021 Pathology study TRINITY GODINEZ [id number] YRS F [id number] /BD [id number] ORDERING PHYSICIAN: CALOS SMITH [...] cut surface is rogers-pink, soft and homogeneous. Wire Hanger sections are submitted in block A1. (RS/1C/MS/RT) Gross examination was performed at [facility]. AJB:MEI 01/04/21 By: LICHA ZEPEDA M.D. (Electronic Signature) MICROSCOPIC: The technical component was performed at [facility], [address] [place] [address]. Microscopic examination was performed. Case resulted at [facility]. DIAGNOSIS: Left knee tissue, revision arthroplasty: -DENSE FIBROUS TISSUE WITH PATCHY CHRONIC INFLAMMATION, FOREIGN BODY GIANT CELL REACTION, AND OSSEOUS METAPLASIA. NOTE: Perivascular lymphocytic inflammation is mild and patchy. JH2:JH2:JH21 END OF REPORT END OF REPORT Normal [facility] XR KNEE 1-2 VIEWS LTon 01-03 [...] Transcribed by: STEW 01/03/2021 15:49 Technologist: EILEEN GOMEZ HISTORICAL RESULTS Kerri Reyna MD - 01/08/2021 [...] Transcribed by: STEW 01/03/2021 15:49 Technologist: EILEEN [facility] Radiology Study observation (narrative) [employer] XR KNEE 1-2 VIEWS LTOrdered By: Kerri Reyna on 01-03-2021 [employer] Work Phone: XR Knee 1-2 Views LTon [...] Left knee arthroplasty revision as detailed above. [place] thanks you for the opportunity to care for your patient. Workstation ID: [id number] - [id number] FINAL REPORT Dictated By: Kerri Reyna MD 01/03/2021 15:49 Assigned Physician: Kerri Reyna MD Reviewed and Electronically Signed By: Kerri Reyna MD 01/03/2021 15:53 Transcribed by: STEW 01/03/2021 15:49 Technologist: EILEEN Normal [facility] aPTT Coag (Bld) [Time]on aPTT Coag (PPP) [Time] 25.0 s Normal 23.2-34.6 [facility] Histopathology Requeston Relevant diagnostic tests/laboratory data Narrative SPECIMEN DESCRIPTION 1 LEFT KNEE RESULT SEE SEPARATE REPORT RESULT SEE NOTES REVIEW TAB FOR RESULTS ROUTINE LAB Report Date: 11/24/2020 05:51:32 Collect Date: 11/19/2020 13:56:00 Normal [facility] Basic metabolic 2000 panelon 11-22-2020 Calcium [Mass/Vol] 8.0 mg/dL Low 8.5-10.6 [facility] Chloride [Moles/Vol] 103 mmol/L Normal 98-107 Moun t [facility] CO2 [Moles/Vol] 29 mmol/L Normal 21-32 [facility] Creatinine [Mass/Vol] 1.09 mg/dL High 0.55-1.02 [facility] Glucose [Mass/Vol] 93 mg/dL Normal 70-99 [facility] Potassium [Moles/Vol] 4.4 mmol/L Normal 3.5-5.1 Arin nt [facility] Sodium [Moles/Vol] 138 mmol/L Normal 136-145 [facility] Urea nitrogen (BldV) [Mass/Vol] 18 mg/dL Normal 7.0-18.0 [facility] Urea nitrogen/Creatinine [Mass ratio] 17 mg/mg Normal [facility] CBC W Auto Differential pane l (Bld)on 11-22-2020 Basophils (Bld) [#/Vol] 0.0 thou/mcL Normal 0.0-0.2 [facility] Basophils/100 WBC (Bld) 0.7 % Normal 0-3 [facility] Differential cell count method Nom (Bld) AUTOMATED DIFFERENTIAL Normal [facility] Eosinophils (Bld) [#/Vol] 0.2 thou/mcL Normal 0.0-0.4 [facility] Eosinophils/100 WBC (Bld) 3.5 % Normal 0-7 [facility] Erythrocyte distribution width (RBC) [Entitic vol] 14.3 % Normal 11.7-15.0 [facility] Hematocrit (Bld) [Volume fraction] 24.8 % Low 34.0-50.0 [facility] Hemoglobin (Bld) [Mass/Vol] 8.2 g/dL Low 11.5-17.0 [facility] Lymphocytes (Bld) [#/Vol] 1.1 thou/mcL Normal 0.7-4.5 [facility] Lymphocytes/100 WBC (Bld) 17.5 % Normal 14-46 [facility] MCH (RBC) [Entitic mass] 29.9 Picograms Normal 27.0-34.0 [facility] MCHC (RBC) [Mass/Vol] 33.0 g/dL Normal 32.0-36.0 [facility] MCV (RBC) [Entitic vol] 90.7 fL Normal 80-98 [facility] Monocytes (Bld) [#/Vol] 0.8 thou/mcL Normal 0.1-1.0 [facility] Monocytes/100 WBC (Bld) 13.0 % Normal 4-13 [facility] Neutrophils (Bld) [#/Vol] 4.2 thou/mcL Normal 1.5-7.8 [facility] Neutrophils/100 WBC (Bld) 65.3 % Normal 40-74 [facility] Platelet mean volume (Bld) [Entitic vol] 10.2 fL Normal 7.5-11.2 [facility] Platelets (Bld) [#/Vol] 176 thou/mcL Normal 140-415 [facility] RBC (Bld) [#/Vol] 2.74 x(10)6/mcL Low 3.80-5.60 Mo unt [facility] WBC (Bld) [#/Vol] 6.5 thou/mcL Normal 4.0-10.5 [facility] Coronavirus (COVID-19/SARS-C oV-2) RAPIDon 11-22-2020 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 N Normal [facility] First test N Normal [facility] ICU N Normal [facility] Illness or injury onset date and time Normal [facility] Patient was hospitalized because of this condition Y Normal [facility] status N Normal [facility] Resides in congregate care setting N Normal [facility] SARS-CoV-2 (COVID-19) RNA REBECCA+probe Ql (Resp) Not detected Normal NDET [facility] Comment on above: Result Comment: This test was performed via the [employer] NOW COVID 19 assay and has been authorized by FDA under an Emergency Use Authorization (EUA). The assay is validated for nasopharyngeal (LEGAL SUMMER INTERN), nasal, and oropharyngeal (OP) direct swabs. The [...] defined by CDC N Normal [facility] OR Nursingon 11-22-2020 OR Nursing Normal [facility] PT Coag (PPP) [Time]on 11-22 INR Coag (Bld) [Relative time] 1.4 {INR} Normal [facility] Comment on above: Result Comment: NOEMÍ [...] room and take this document with you. [facility] [place][Note 2] 11/22/20 14:48 [address] [place] [address] PATIENT INFORMATION Name: TRINITY GODINEZ Address: [address] [place], [place] [address] Age: 65 Years Phone: [phone] : 1955 12:00 MRN: [id number] Sex: Female Race: White Ethnicity: Not Hispan/Lat Admitted From: Clinic or [facility] Medical Service: Orthopedic Surgery Nurse Unit/Bed: (CO) 2N 0221-01 Admit Date: 11/19/2020 09:38 PCP: Levi Shine MD PHYSICIANS INVOLVED WITH CARE ------ Attending Physicians: Luis Quinn MD , Calos - Orthopaedic Surg Admitting Physician: Luis Quinn MD , Calos - Orthopaedic Surg Primary Care Physician:Levi Shine MD,[facility], - Consults: Shailesh VEGA , Grabiel Maciel - Infectious Disease Andrew VEGA , Jose Carrasco - Internal Medicine Mario VEGA , Trey E - Internal Medicine Heather, CHAVO - Internal Medicine Angeles VEGA , Kenzie W - Internal Medicine FOLLOW-UP APPOINTMENTS: Provider: Specialty: Address: Date: Calos Smith Jr, MD Orthopaedic Surg [address] [facility] [address] [facility] [phone] (1) Three Weeks Comment: Call for an Appointment AND ANY QUESTIONS OR CONCERNS Provider: Specialty: Address: Date: Grabiel Hicks MD Infectious Disease [address] [facility] [address] (1) Call for an Appointment Comment: 1) call soon for an appointment with Dr. Hicks in 4-5 weeks, 2) you will be on IV antibiotic until the time of your reimplantation, 3) every Sunday the nursing staff will collect blood work (CBC,SR,CRP,Creat, Vanco Trough) and fax to Dr. Hicks ([phone]), 4) call sooner for fever, chills, nausea, vomiting, diarrhea, rash, pain in your PICC arm or worsening condtion of your wound. Provider: Specialty: Address: Date: Levi Shine MD [facility] [address] [facility] [address] (1) Follow-up as needed Provider: Specialty: Address: Date: [facility] Follow-up as needed Comment: [facility] [phone] ALLERGIES: NSAIDs : Reaction:Anaphylactic reaction Ancef : [...] doses are changed, or new medications (including oskz-mzj-ywkgmav products) are added. Ask your doctor if [...] CBC,SR,Creat,CRP, Vanco Trough, fax to Dr. Hicks [phone] 3)IV ATB UNTIL reimplant 4)Call Dr. Hicks [...] (more content not included)... Normal [facility] Prothrombin Timeon PT Coag (PPP) [Time] 16.9 s High 11.9-14.6 Moun t [facility] Vancomycin [Moles/Vol]on Vancomycin random [Mass/Vol] 28.3 ZZ Normal 10.0-50.0 [facility] Basic metabolic 2000 panelon 11-21-2020 Calcium [Mass/Vol] 8.2 mg/dL Low 8.5-10.6 [facility] Chloride [Moles/Vol] 106 mmol/L Normal 98-107 Moun t [facility] CO2 [Moles/Vol] 29 mmol/L Normal 21-32 [facility] Creatinine [Mass/Vol] 1.07 mg/dL High 0.55-1.02 [facility] Glucose [Mass/Vol] 94 mg/dL Normal 70-99 [facility] Potassium [Moles/Vol] 4.3 mmol/L Normal 3.5-5.1 [facility] Sodium [Moles/Vol] 141 mmol/L Normal 136-145 [facility] Urea nitrogen (BldV) [Mass/Vol] 18 mg/dL Normal 7.0-18.0 [facility] Urea nitrogen/Creatinine [Mass ratio] 17 mg/mg Normal [facility] CBC W Auto Differential pane l (Bld)on 11-21-2020 Basophils (Bld) [#/Vol] 0.0 thou/mcL Normal 0.0-0.2 [facility] Basophils/100 WBC (Bld) 0.7 % Normal 0-3 [facility] Differential cell count method Nom (Bld) AUTOMATED DIFFERENTIAL Normal [facility] Eosinophils (Bld) [#/Vol] 0.1 thou/mcL Normal 0.0-0.4 [facility] Eosinophils/100 WBC (Bld) 1.6 % Normal 0-7 [facility] Lymphocytes (Bld) [#/Vol] 1.3 thou/mcL Normal 0.7-4.5 [facility] Lymphocytes/100 WBC (Bld) 18.7 % Normal 14-46 [facility] Monocytes (Bld) [#/Vol] 0.8 thou/mcL Normal 0.1-1.0 [facility] Monocytes/100 WBC (Bld) 12.1 % Normal 4-13 [facility] Neutrophils (Bld) [#/Vol] 4.6 thou/mcL Normal 1.5-7.8 [facility] Neutrophils/100 WBC (Bld) 66.9 % Normal 40-74 [facility] Erythrocyte distribution width (RBC) [Entitic vol] 14.6 % Normal 11.7-15.0 [facility] Hematocrit (Bld) [Volume fraction] 25.9 % Low 34.0-50.0 [facility] Hemoglobin (Bld) [Mass/Vol] 8.5 g/dL Low 11.5-17.0 [facility] MCH (RBC) [Entitic mass] 29.8 Picograms Normal 27.0-34.0 [facility] MCHC (RBC) [Mass/Vol] 32.8 g/dL Normal 32.0-36.0 [facility] MCV (RBC) [Entitic vol] 90.9 fL Normal 80-98 [facility] Platelet mean volume (Bld) [Entitic vol] 9.9 fL Normal 7.5-11.2 [facility] Platelets (Bld) [#/Vol] 181 thou/mcL Normal 140-415 [facility] RBC (Bld) [#/Vol] 2.85 x(10)6/mcL Low 3.80-5.60 Mo [facility] WBC (Bld) [#/Vol] 7.0 thou/mcL Normal 4.0-10.5 [facility] PT Coag (PPP) [Time]on 11-21 INR Coag (Bld) [Relative time] 1.4 {INR} Normal [facility] Comment on above: Result Comment: NOEMÍ GOMEZ THE INDUCTION PHASE OF ORAL ANTICOAGULATION, THE INR MAY NOT REFLECT THE ANTICOAGULANT STATUS OF THE PATIENT. THERAPEUTIC RANGES FOR INR'S ARE: MOST CLINICAL SITUATIONS: INR 2.0-3.0 MECHANICAL PROSTHETIC VALVES: INR 2.5-3.5 CRITICAL: INR 5.0 Prothrombin Timeon PT Coag (PPP) [Time] 17.1 s High 11.9-14.6 Moun [facility] Basic metabolic 2000 panelon 11-20-2020 Calcium [Mass/Vol] 8.3 mg/dL Low 8.5-10.6 [facility] Chloride [Moles/Vol] 104 mmol/L Normal 98-107 Moun [facility] CO2 [Moles/Vol] 24 mmol/L Normal 21-32 [facility] Creatinine [Mass/Vol] 0.97 mg/dL Normal 0.55-1.02 [facility] Glucose [Mass/Vol] 126 mg/dL High 70-99 [facility] Potassium [Moles/Vol] 4.4 mmol/L Normal 3.5-5.1 [facility] Sodium [Moles/Vol] 139 mmol/L Normal 136-145 [facility] Urea nitrogen (BldV) [Mass/Vol] 18 mg/dL Normal 7.0-18.0 [facility] Urea nitrogen/Creatinine [Mass ratio] 19 mg/mg Normal [facility] CBC W Auto Differential pane l (Bld)on 11-20-2020 Basophils (Bld) [#/Vol] 0.0 thou/mcL Normal 0.0-0.2 [facility] Basophils/100 WBC (Bld) 0.2 % Normal 0-3 [facility] Differential cell count method Nom (Bld) AUTOMATED DIFFERENTIAL Normal [facility] Eosinophils (Bld) [#/Vol] 0.0 thou/mcL Normal 0.0-0.4 [facility] Eosinophils/100 WBC (Bld) 0.0 % Normal 0-7 [facility] Lymphocytes (Bld) [#/Vol] 0.9 thou/mcL Normal 0.7-4.5 [facility] Lymphocytes/100 WBC (Bld) 9.1 % Low 14-46 [facility] Monocytes (Bld) [#/Vol] 0.9 thou/mcL Normal 0.1-1.0 [facility] Monocytes/100 WBC (Bld) 9.2 % Normal 4-13 [facility] Neutrophils (Bld) [#/Vol] 7.8 thou/mcL Normal 1.5-7.8 [facility] Neutrophils/100 WBC (Bld) 81.5 % High 40-74 [facility] Erythrocyte distribution width (RBC) [Entitic vol] 14.7 % Normal 11.7-15.0 [facility] Hematocrit (Bld) [Volume fraction] 30.7 % Low 34.0-50.0 [facility] Hemoglobin (Bld) [Mass/Vol] 10.2 g/dL Low 11.5-17.0 [facility] MCH (RBC) [Entitic mass] 30.3 Picograms Normal 27.0-34.0 [facility] MCHC (RBC) [Mass/Vol] 33.3 g/dL Normal 32.0-36.0 [facility] MCV (RBC) [Entitic vol] 90.9 fL Normal 80-98 [facility] Platelet mean volume (Bld) [Entitic vol] 11.1 fL Normal 7.5-11.2 [facility] Platelets (Bld) [#/Vol] 246 thou/mcL Normal 140-415 [facility] RBC (Bld) [#/Vol] 3.38 x(10)6/mcL Low 3.80-5.60 Mo [facility] WBC (Bld) [#/Vol] 9.5 thou/mcL Normal 4.0-10.5 [facility] PT Coag (PPP) [Time]on 11-20 INR Coag (Bld) [Relative time] 1.0 {INR} Normal [facility] Comment on above: Result Comment: NOEMÍ GOMEZ THE INDUCTION PHASE OF ORAL ANTICOAGULATION, THE INR MAY NOT REFLECT THE ANTICOAGULANT STATUS OF THE PATIENT. THERAPEUTIC RANGES FOR INR'S ARE: MOST CLINICAL SITUATIONS: INR 2.0-3.0 MECHANICAL PROSTHETIC VALVES: INR 2.5-3.5 CRITICAL: INR 5.0 Prothrombin Timeon PT Coag (PPP) [Time] 13.6 s Normal 11.9-14.6 [facility] Anesthesia Recordon 11-20-19 Anesthesia Record Patient: TRINITY GODINEZ MRN: [id number] Age: 65 years Sex: Female : 1955 Associated Diagnoses: None Author: Angel Wyatt MD Procedure Time Out [place] Protocol: patient identity verified, site verified, side verified, procedure to be done verified, patient position verified. REGIONAL ANESTHESIA PROCEDURE Procedure date and begin time: Peripheral nerve block. Procedure date and end time: See nursing notes. Performed by: Angel Wyatt MD. Assisted by: no electrician assistant. Informed consent: signed by patient. Technique: [...] Diagnosis: Postoperative Diagnosis: . Normal [facility] Culture Aerobicon 11-19-2020 Bacteria identified Aer cx Nom (Unsp spec) [facility] Microbiology PROCEDURE: Culture Aerobic SOURCE: Tissue [...] SEEN, NO ORGANISMS SEEN Normal [facility] Comment on above: Performed By: #### 6 34-6 ####[facility] [address] [place], [place] Bacteria identified Aer cx Nom (Unsp spec) [facility] Microbiology PROCEDURE: Culture Aerobic SOURCE: Tissue [...] EPIS NO ORGANISMS SEEN Normal [facility] Comment on above: Performed By: #### 6 34-6 ####[address] Bacteria identified Aer cx Nom (Unsp spec) [facility] Microbiology PROCEDURE: Culture Aerobic SOURCE: Tissue [...] Epithelials NO ORGANISMS SEEN Normal [facility] Comment on above: Performed By: #### 6 34-6 ####[address] Bacteria identified Aer cx Nom (Unsp spec) [facility] Microbiology PROCEDURE: Culture Aerobic SOURCE: Tissue [...] Epithelials NO ORGANISMS SEEN Normal [facility] Comment on above: Performed By: #### 6 34-6 ####[address] Culture Anaerobicon 11-20-19 21 Bacteria identified Anaer cx Nom (Unsp spec) [facility] Microbiology PROCEDURE: Culture Anaerobic SOURCE: Tissue [...] CO_PN CULTURE IN PROGRESS Normal [facility] Comment on above: Performed By: #### 6 35-3 ####[address] Bacteria identified Anaer cx Nom (Unsp spec) [facility] Microbiology PROCEDURE: Culture Anaerobic SOURCE: Tissue [...] 20:36 EDT CONTRIBUTOR_SYSTEM, CO_PN CULTURE IN PROGRESS [facility] Comment on above: Performed By: #### 6 35-3 ####[place] [address] [place], [place] Bacteria identified Anaer cx Nom (Unsp spec) [facility] Microbiology PROCEDURE: Culture Anaerobic SOURCE: Tissue [...] 20:36 EDT CONTRIBUTOR_SYSTEM, CO_PN CULTURE IN PROGRESS [facility] Comment on above: Performed By: #### 6 35-3 ####[address] Bacteria identified Anaer cx Nom (Unsp spec) [facility] Microbiology PROCEDURE: Culture Anaerobic SOURCE: Tissue [...] 20:36 EDT CONTRIBUTOR_SYSTEM, CO_PN CULTURE IN PROGRESS [facility] Comment on above: Performed By: #### 6 35-3 ####[place] [address] [place], [place] Culture Funguson 11-19-2020 Fungus identified Cx Nom (Unsp spec) [facility] Microbiology PROCEDURE: Culture Fungus SOURCE: Tissue [...] CULTURE WILL BE HELD FOR 1-4 WEEKS [facility] Comment on above: Performed By: #### 5 80-1 ####[address] Fungus identified Cx Nom (Unsp spec) [facility] Microbiology PROCEDURE: Culture Fungus SOURCE: Tissue [...] HELD FOR 1-4 WEEKS Normal [facility] Comment on above: Performed By: #### 5 80-1 ####[place] [address] [place], [place] Fungus identified Cx Nom (Unsp spec) [facility] Microbiology PROCEDURE: Culture Fungus SOURCE: Tissue [...] CULTURE WILL BE HELD FOR 1-4 WEEKS [facility] Comment on above: Performed By: #### 5 80-1 ####[place] [address] [place], [place] Fungus identified Cx Nom (Unsp spec) [facility] Microbiology PROCEDURE: Culture Fungus SOURCE: Tissue [...] HELD FOR 1-4 WEEKS Normal [facility] Comment on above: Performed By: #### 5 80-1 ####[place] [address] [place], [place] PACU I Nursingon 11-19-2020 PACU I Nursing CO NA PACU I Nursing Record Summary Primary Physician: Calos Smith Jr, MD Finalized Date/Time: 11/19/20 18:19:26 Pt. Name: TRINITY OGDINEZ/Sex: 1955 Female Med Rec #: [id number] Physician: Calos Smith Jr, MD Financial #: [id number] Pt. Type: I Room/Bed: / Admit/Disch: 11/19/20 [...] Franco RN 11/19/20 18:19 Normal [facility] PreOp Nursingon 11-19-2020 PreOp Nursing CO NA PreOp Nursing Record Summary Primary Physician: Calos Smith Jr, MD Finalized Date/Time: 11/19/20 13:09:57 Pt. Name: TRINITY GODINEZ/Sex: 1955 Female Med Rec #: [id number] Physician: Calos Smith Jr, MD Financial #: [id number] Pt. Type: I Room/Bed: / Admit/Disch: 11/19/20 [...] Mcclain RN 11/19/20 13:09 Normal [facility] Surgical Pathology Final Rep tom 11-19-2020 Pathology study TRINITY GODINEZ [id number] YRS F [id number] / [id number] ORDERING PHYSICIAN: CALOS SMITH [...] cut surface is rogers-pink, soft and homogeneous. Wire Hanger sections are submitted in block (A1). (RS/1C/MS/RT) Gross examination was performed at [facility]. AJB:ASPEN 11/22/20 By: LICHA ZEPEDA M.D. (Electronic Signature) MICROSCOPIC: The technical component was performed at [facility], [address] [place] [address]. Microscopic examination was performed. Case resulted at [facility]. 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 NOTE: There is no significant perivascular lymphocytic inflammation. JH2:JH2:JH208/ END OF REPORT END OF REPORT Normal [facility] XR Knee 1-2 Views LTon 11-19 [...] is present. Anterior skin elvira are noted. [place] thanks you for the opportunity to care for your patient. Workstation ID: [id number] FINAL REPORT Dictated By: Abdias Morejon MD 11/19/2020 16:54 Assigned Physician: Abdias Morejon MD Reviewed and Electronically Signed By: Abdias Morejon MD 11/19/2020 16:56 Transcribed by: STEW 11/19/2020 16:54 Technologist: BASIL Amador [facility] PreOp Nursingon 11-18-2020 PreOp Nursing CO NA PreOp Nursing Record Summary Primary Physician: Calos Smith Jr, MD Finalized Date/Time: 11/18/20 15:01:45 Pt. Name: TRINITY GODINEZ/Sex: 1955 Female Med Rec #: [id number] Physician: Calos Smith Jr, MD Financial #: [id number] Pt. Type: I Room/Bed: / Admit/Disch: 11/17/20 [...] Wu RN 11/18/20 15:01 Normal [facility] PT Coag (PPP) [Time]on 11-17 INR Coag (Bld) [Relative time] 1.1 {INR} Normal [facility] Comment on above: Result Comment: NOEMÍ GOMEZ THE INDUCTION PHASE OF ORAL ANTICOAGULATION, THE INR MAY NOT REFLECT THE ANTICOAGULANT STATUS OF THE PATIENT. THERAPEUTIC RANGES FOR INR'S ARE: MOST CLINICAL SITUATIONS: INR 2.0-3.0 MECHANICAL PROSTHETIC VALVES: INR 2.5-3.5 CRITICAL: INR 5.0 Prothrombin Timeon PT Coag (PPP) [Time] 14.1 s Normal 11.9-14.6 Moun [facility] aPTT Coag (Bld) [Time]on aPTT Coag (PPP) [Time] 25.4 s Normal 23.2-34.6 [facility] Basic metabolic 2000 panelon 11-15-2020 Calcium [Mass/Vol] 9.7 mg/dL Normal 8.5-10.6 [facility] Chloride [Moles/Vol] 100 mmol/L Normal 98-107 Moun [facility] CO2 [Moles/Vol] 26 mmol/L Normal 21-32 [facility] Creatinine [Mass/Vol] 1.25 mg/dL High 0.55-1.02 [facility] Glucose [Mass/Vol] 79 mg/dL Normal 70-99 [facility] Potassium [Moles/Vol] 4.0 mmol/L Normal 3.5-5.1 [facility] Sodium [Moles/Vol] 137 mmol/L Normal 136-145 [facility] Urea nitrogen (BldV) [Mass/Vol] 31 mg/dL High 7.0-18.0 [facility] Urea nitrogen/Creatinine [Mass ratio] 25 mg/mg Normal [facility] Blood type and Indirect anti body screen panel (Bld)on 11-15-2020 Blood group antibody screen Ql Negative Normal NEG [facility] Rh Nom (Bld) Positive Normal [facility] C-Reactive Proteinon 021 CRP [Mass/Vol] 5.1 mg/L Normal 0.0-9.0 [facility] CBC W Auto Differential pane l (Bld)on 11-15-2020 Basophils (Bld) [#/Vol] 0.1 thou/mcL Normal 0.0-0.2 [facility] Basophils/100 WBC (Bld) 1.3 % Normal 0-3 [facility] Differential cell count method Nom (Bld) AUTOMATED DIFFERENTIAL Normal [facility] Eosinophils (Bld) [#/Vol] 0.2 thou/mcL Normal 0.0-0.4 [facility] Eosinophils/100 WBC (Bld) 2.7 % Normal 0-7 [facility] Erythrocyte distribution width (RBC) [Entitic vol] 15.2 % High 11.7-15.0 [facility] Hematocrit (Bld) [Volume fraction] 38.1 % Normal 34.0-50.0 [facility] Hemoglobin (Bld) [Mass/Vol] 12.5 g/dL Normal 11.5-17.0 [facility] Lymphocytes (Bld) [#/Vol] 1.8 thou/mcL Normal 0.7-4.5 [facility] Lymphocytes/100 WBC (Bld) 21.9 % Normal 14-46 [facility] MCH (RBC) [Entitic mass] 30.0 Picograms Normal 27.0-34.0 [facility] MCHC (RBC) [Mass/Vol] 32.9 g/dL Normal 32.0-36.0 [facility] MCV (RBC) [Entitic vol] 91.3 fL Normal 80-98 [facility] Monocytes (Bld) [#/Vol] 0.5 thou/mcL Normal 0.1-1.0 [facility] Monocytes/100 WBC (Bld) 6.6 % Normal 4-13 [facility] Neutrophils (Bld) [#/Vol] 5.5 thou/mcL Normal 1.5-7.8 [facility] Neutrophils/100 WBC (Bld) 67.5 % Normal 40-74 [facility] Platelet mean volume (Bld) [Entitic vol] 9.9 fL Normal 7.5-11.2 [facility] Platelets (Bld) [#/Vol] 314 thou/mcL Normal 140-415 [facility] RBC (Bld) [#/Vol] 4.17 x(10)6/mcL Normal 3.80-5.60 Mo [facility] WBC (Bld) [#/Vol] 8.1 thou/mcL Normal 4.0-10.5 [facility] PT Coag (PPP) [Time]on 11-15 INR Coag (Bld) [Relative time] 1.5 {INR} Normal [facility] Comment on above: Result Comment: NOEMÍ GOMEZ THE INDUCTION PHASE OF ORAL ANTICOAGULATION, THE INR MAY NOT REFLECT THE ANTICOAGULANT STATUS OF THE PATIENT. THERAPEUTIC RANGES FOR INR'S ARE: MOST CLINICAL SITUATIONS: INR 2.0-3.0 MECHANICAL PROSTHETIC VALVES: INR 2.5-3.5 CRITICAL: INR 5.0 Prothrombin Timeon PT Coag (PPP) [Time] 17.7 s High 11.9-14.6 [facility] Sedimentation Rate rbcon ESR (Bld) [Velocity] 52 mm/h High 0-30 [facility] aPTT Coag (Bld) [Time]on aPTT Coag (PPP) [Time] 27.8 s Normal 23.2-34.6 [facility] Consultation Noteon 08-24-19 Consultation Note [id number]#1. 00CD:127 Normal [facility] Operative Reporton Operative Report [id number] .00CD:127 Normal [facility] Pathology Noteon 08-23-2020 Pathology Note [id number] .00CD:127 Normal [facility] Consultation Noteon 08-20-19 Consultation Note [id number] .00CD:127 Normal [facility] Facesheeton 08-19-2020 Facesheet [id number] .00CD:127 Normal [facility] Vital Signs Date Time Vital Sign Value Performing Clinician Taryn travis 04-22-2022 11:44-0500 Body temperature 99.1 [degF] Calos Smith MD Work Phone: [employer] 04-22-2022 11:44-0500 Diastolic blood pressure 62 mm[Hg] Calos Smith MD Work Phone: [employer] 04-22-2022 11:44-0500 Heart rate 90 /min Calos Smith MD Work Phone: [employer] 04-22-2022 11:44-0500 Respiratory rate 12 /min Calos Smith MD Work Phone: [employer] 04-22-2022 11:44-0500 SaO2% (BldA) [Mass fraction] 92 % Calos Smith MD Work Phone: [employer] 04-22-2022 11:44-0500 Systolic blood pressure 109 mm[Hg] Calos Smith MD Work Phone: [employer] 04-20-2022 12:25-0500 Body height 172.7 cm Calos Smith MD Work Phone: [employer] 04-20-2022 12:25-0500 Body mass index (BMI) [Ratio] 27.12 kg/m2 Calos Smith MD Work Phone: [employer] 04-20-2022 12:25-0500 Body weight 80.9 kg Calos Smith MD Work Phone: [employer] 01-06-2022 10:05-0400 Diastolic blood pressure 63 mm[Hg] Calos Smith MD Work Phone: [employer] 01-06-2022 10:05-0400 Heart rate 84 /min Calos Smith MD Work Phone: [employer] 01-06-2022 10:05-0400 Systolic blood pressure 111 mm[Hg] Calos Smith MD Work Phone: [employer] 01-06-2022 07:55-0400 SaO2% (BldA) [Mass fraction] 96 % Calos Smith MD Work Phone: [employer] 01-06-2022 07:52-0400 Body temperature 97 [degF] Calos Smith MD Work Phone: [employer] 01-06-2022 04:28-0400 Respiratory rate 12 /min Calos Smith MD Work Phone: [employer] 01-03-2022 07:10-0400 Body height 172.7 cm Calos Smith MD Work Phone: [employer] 01-03-2022 07:10-0400 Body mass index (BMI) [Ratio] 27.05 kg/m2 Calos Smith MD Work Phone: [employer] 01-03-2022 07:10-0400 Body weight 80.7 kg Calos Smith MD Work Phone: [employer] 01-08-2021 09:00-0400 SaO2% (BldA) [Mass fraction] 93 % Calos Smith MD Work Phone: [employer] 01-08-2021 08:12-0400 Body temperature 97.2 [degF] Calos Smith MD Work Phone: [employer] 01-08-2021 08:12-0400 Diastolic blood pressure 83 mm[Hg] Calos Smith MD Work Phone: [employer] 01-08-2021 08:12-0400 Heart rate 76 /min Calos Smith MD Work Phone: [employer] 01-08-2021 08:12-0400 Respiratory rate 12 /min Calos Smith MD Work Phone: [employer] 01-08-2021 08:12-0400 Systolic blood pressure 125 mm[Hg] Calos Smith MD Work Phone: [employer] 01-06-2021 13:37-0400 Body height 175.3 cm Calos Smith MD Work Phone: [employer] Comment on above: Pt reported 01-06-2021 13:37-0400 Body mass index (BMI) [Ratio] 30.41 kg/m2 Calos Smith MD Work Phone: [employer] 01-06-2021 13:37-0400 Body weight 93.4 kg Calos Smith MD Work Phone: [employer] Comment on above: Actual Encounters Encounter Date Encounter Type Care Provider Facility Start: 09-22-2024 End: 09-22-2024 ambulatory Levi Shine Facility:[facility] Start: 09-13-2024 End: 09-13-2024 ambulatory Kimani Reyes Facility:[facility] Start: 02-19-2023 ambulatory [facility] Start: 08-26-2022 End: 08-30-[address] LEVI SHINE . Facility:[facility] Start: 08-25-[address] LEVI SHINE . Facili ty:[facility] Start: 08-23-2022 End: 08-23-2022 ambulatory JACKY HOWELL Facility:[facility] Start: 08-22-[address] LEVI SHINE . Facili ty:[facility] Start: 08-01-2022 End: 08-02-[address] LEVI SHINE . Facility:[facility] Start: 05-22-2022 End: 05-23-[address] LEVI SHINE . Facility:[facility] Start: 05-04-2022 ambulatory [facility] Start: 05-03-2022 ambulatory [facility] Start: 05-02-2022 ambulatory LEVI SHINE [facility] Start: 05-01-2022 ambulatory LEVI Mccann [facility] Start: 04-30-2022 ambulatory BRITTANY WOOD [facility] Start: 04-29-2022 ambulatory BRITTANY WOOD [facility] Start: 04-29-2022 Encounter for genera l adult medical examination without abnormal findings BRITTANY WOOD [facility] Start: 04-28-2022 ambulatory LEVI Mccann [facility] Start: 04-27-2022 ambulatory LEVI Mccann [facility] Start: 04-26-2022 [facility] Start: 04-25-2022 ambulatory LEVI Mccann [facility] Start: 04-24-2022 ambulatory BRITTANY WOOD [facility] Start: 04-23-2022 ambulatory BRITTANY WOOD [facility] Start: 04-20-2022 End: 04-22-2022 Evaluation and management of inpatient LEVI HOY [facility] Start: 04-20-2022 End: 04-22-2022 Evaluation and management of inpatient Calos Smith MD Work Phone: [facility] Comment on above: Other mechanical com plication of internal left knee prosthesis, initial encounter ([facility] Start: 04-18-2022 End: 04-18-[address] LEVI SHINE . Facility: Start: 02-14-[address] LEVI SHINE . Facili ty:[facility] Start: 01-31-2022 End: 03-01-2022 ambulatory SHAIKH Raheem FOWLER Facility:[facility] Start: 01-05-2022 Encounter for preprocedural laboratory examination DR LEVI SHINE . [facility] Start: 01-03-2022 End: 01-06-2022 Evaluation and management of inpatient Calos Smith MD Work Phone: [facility] Start: 01-03-2022 End: 01-06-2022 Subsequent hospital visit by physician Calos Smith MD Work Phone: [facility] Start: 01-02-2022 End: 01-03-[address] LEVI SHINE . Facility:[facility] Start: 01-02-2022 End: 01-03-2022 Encounter for preprocedural laboratory examination DR LEVI SHINE . Facility:[facility] Start: 12-31-2021 ambulatory SHAIKH Raheem Erwin y:[facility] Start: 12-12-2021 End: 12-14-[address] LEVI SHINE . Facility:[facility] Start: 10-21-2021 End: 10-22-[address] LEVI SHINE . Facility:[facility] Start: 01-11-2021 ambulatory CALOS SMITH JR. Fac ility:[facility] Start: 01-03-2021 End: 01-08-2021 Evaluation and management of inpatient Calos Smith MD Work Phone: [facility] Start: 05-18-2020 End: 06-17-2020 ambulatory KARAN SULLIVAN Facility:[facility] Start: 05-12-2020 End: 05-27-2020 ambulatory KARAN SULLIVAN Facility:[facility] Procedures Date Procedure Procedure Detail Performing [...] above: Performed By: #### 3 [id number] #### [facility] [address] [place] [address] Start: 01-05-2022 Prothrombin time Chong Hsieh MD [...] Tdap) DTaP,Tdap,and Td Vaccines (2 - Tdap) [employer] Start: 04-22-2023 Hypertension/CHF/CAD Annual BMP Blood Test Hypertension/CHF/CAD Annual BMP Blood Test [employer] [facility] Start: 01-05-2023 Hypertension/CHF/CAD Annual BMP Blood Test Hypertension/CHF/CAD Annual BMP Blood Test [facility] Start: 12-01-2021 Influenza vaccination Influenza Vacc ine (#1) [employer] [facility] Start: 08-19-2021 COVID-19 Vaccine (4 - Booster for Pfizer series) COVID-19 Vaccine (4 - Booster for Pfizer series) [facility] Start: 01-16-2021 COVID-19 Vaccine (3 - Booster for Pfizer series) COVID-19 Vaccine (3 - Booster for Pfizer series) [facility] Start: 12-20-2020 Hypertension/CHF/CAD Annual BMP Blood Test Hypertension/CHF/CAD Annual BMP Blood Test [facility] Start: 12-15-2020 Adolescent depressio n screening assessment Depression Screening [facility] Start: 12-15-2020 Depression Screening Depression Scre ening [facility] Start: 12-15-2020 Hepatitis C screening Hepatitis C Sc reening [facility] Start: 12-15-2020 HIV screening HIV Screening [facility] Start: 12-15-2020 Lipid panel Cholesterol Sc reening (Lipid Panel) [facility] Start: 12-15-2020 Medicare Annual Well ness Visit Medicare Annual Wellness Visit [facility] Start: 12-15-2020 Screening for malign ant neoplasm of breast Breast Cancer Screening [facility] Start: 12-15-2020 Screening for malign ant neoplasm of colon Colorectal Cancer Screening: Colonoscopy [facility] Start: 12-15-2020 Screening for malign ant neoplasm of lung Lung Cancer Screening (Low Dose CT) [facility] Start: 12-15-2020 Social Influencers o f Health Screening Social Influencers of Health Screening [facility] Start: 12-01-2020 Influenza vaccination Influenza Vacc ine (#1) [facility] Start: 02-01-2016 Pneumococcal Vaccine : Pediatrics (0 to 5 Years) and At-Risk Patients (6 to 64 Years) (2 - PCV) Pneumococcal Vaccine: Pediatrics (0 to 5 Years) and At-Risk Patients (6 to 64 Years) (2 - PCV) [facility] Start: 2007 Zoster Vaccines (1 of 2) Zoster Vacc ngozi (1 of 2) [facility] Start: 1978 Screening for malign ant neoplasm of cervix Cervical Cancer Screening: Pap Smear [facility] Start: 1976 DTaP,Tdap,and Td Vac cines (1 - Tdap) DTaP,Tdap,and Td Vaccines (1 - Tdap) [facility] Start: 1955 Hepatitis B Vaccines (1 of 3 - 3-dose series) Hepatitis B Vaccines (1 of 3 - 3-dose series) [employer] Bacteria identified in Tissue by Culture Culture tissue with gram stain Microbiology Routine 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, initial encounter ([facility]) 04/20/2022 2:13 PM EST [employer] Bacteria identified in Unspecified specimen by Anaerobe culture [employer] Work Phone: Bacteria identified in Unspecified specimen by Sterile body fluid culture Culture body fluid with gram stain Microbiology Routine 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, initial encounter ([facility]) 04/20/2022 2:10 PM EST [employer] End: 01-08-2021 Communication order: Respiratory Communication order: Respiratory Respiratory Care Routine Once for 1 Occurrences starting 01/08/2021 until 01/08/2021 [employer] Comment on above: Once for 1 Occurrenc es starting 01/08/2021 until 01/08/2021 Fungus identified in Skin by Culture [employer] [facility] Incentive spirometry RT Incentiv e spirometry RT Respiratory Care Routine Daily until discontinued starting 01/08/2021 [employer] Comment on above: Daily until disconti nued starting 01/08/2021 Mycobacterium sp identified in Unspecified specimen by Organism specific culture [employer] End: 01-13-2021 Prothrombin time (PT) Prothrombin time with INR Lab Routine Daily for 6 Days starting 01/08/2021 until 01/13/2021, 1 completed [employer] Work Phone: Comment on above: Daily for 6 Days sta rting 01/08/2021 until 01/13/2021, 1 completed Immunizations Immunization Date Immunization Notes Care Provider [facility] 02-10-2021 influenza virus vacc ine, unspecified formulation Calos Smith MD Work Phone: [employer] 01-03-2020 influenza virus vacc ine, unspecified formulation Calos Smith MD Work Phone: [employer] Payers Date Payer Category Payer Self-pay 2015 Medicare MEDICARE MEDICAR E RAILROAD [id number] 2015-Present [address] [address] [place] [address] Medicare [id number] 2015 Medicare MEDICARE MEDICAR E RAILROAD [id number] 2015-Present [address] [address] [place] [address] Medicare [id number] 1959 Medicare [id number] 1959 Private Health Insurance [id number] 1957 Unknown [id number] 2.16.840.1.668766.3.579.2 .647 1957 Unknown [id number] 2.16.840.1.958707.3.579.2 .647 1957 Unknown [id number] 2.16.840.1.623112.3.579.2 .593 1957 Unknown [id number] 2.16.840.1.014403.3.579.2 .593 1957 Unknown [id number] 2.16.840.1.089064.3.579.2 .593 1957 Unknown [id number] 2.16.840.1.364847.3.579.2 .593 1957 Unknown [id number] 2.16.840.1.318099.3.579.2 .593 1957 Unknown [id number] 2.16.840.1.379314.3.579.2 .593 1957 Unknown [id number] 2.16.840.1.893912.3.579.2 .593 1957 Unknown [id number] 2.16.840.1.300922.3.579.2 .593 1957 Unknown [id number] 2.16.840.1.807754.3.579.2 .593 1957 Unknown [id number] 2.16.840.1.580538.3.579.2 .593 1957 Unknown [id number] 2.16.840.1.530673.3.579.2 .593 1957 Unknown [id number] 2.16.840.1.728604.3.579.2 .593 1957 Unknown [id number] 2.16.840.1.200771.3.579.2 .593 1957 Unknown [id number] 2.16.840.1.255227.3.579.2 .1143 1957 Unknown [id number] 2.16.840.1.674127.3.579.2 .114 1957 Unknown [id number] 2.16.840.1.410647.3.579.2 .114 1957 Unknown [id number] 2.16.840.1.357803.3.579.2 .114 1957 Unknown [id number] 2.16.840.1.010603.3.579.2 .1143 1957 Unknown [id number] 2.16.840.1.561714.3.579.2 .114 1957 Unknown [id number] 2.16.840.1.204982.3.579.2 .114 1957 Unknown [id number] 2.16.840.1.400719.3.579.2 .114 1957 Unknown [id number] 2.16.840.1.988325.3.579.2 .114 1957 Unknown [id number] 2.16.840.1.946644.3.579.2 .114 1957 Unknown [id number] 2.16.840.1.293224.3.579.2 .1143 Unknown [id number] 2.16.840.1.186576.3.579.2 .531 Unknown [id number] 2.16.840.1.452946.3.579.2 .531 Social History Date Type Detail Facility Tobacco smoking stat [facility] Unknown if ever smoked [facility] Start: 1955 Sex Assigned At Not on file [facility] Start: 12-30-2021 Tobacco smoking stat [facility] Ex-smoker [facility] End: 08-31-2021 History of tobacco use Current smoker [facility] End: 08-31-2021 History of tobacco use Cigarette Smoker [facility] Start: 12-30-2021 Tobacco use and exposure Smokeless t obacco non-user [facility] Start: 01-03-2022 End: 04-20-2022 Alcohol intake Lifetime non-drinker (finding) [facility] Start: 12-24-2021 End: 04-20-2022 Exposure to SARS-CoV-2 (event) Not sure [facility] Medical Equipment Procedure Code Equipment Code Equipment Origin al Text Equipment Identifier Dates Cement Bone Biom et R 1x40 - [facility] - [id number] ()[id number] [id number])[id number], [id number] [facility] Start: 01-03-2022 Knee Tib Brg Ant Stbl [id number] - Sna - [id number] ()[id number] [id number] 1)[id number], [id number] [facility] Start: 01-03-2022 Clinical Notes 11-17-2020 to [...] picking her up around 12-12:30. Delroy at [facility] updated pt to arrive around 1. NN spoke with Delroy at [facility]. They can accept the pt today. No HENS needed. Pt will need a covTrustribe test [phone] Delroy will need updated with a transport [...] Clarity 04/20/2022 Hazy Body Fluid Color 04/20/2022 Johnson Body Fluid RBC 04/20/2022 25,000 Body Fluid [...] 04/20/2022 16:06 Post-op Progress Note Subjective Procedure: OK RECONSTR DISLOCATING PATELLA W EXT REALIGNMENT AND/OR MUSCLE ADVMNT/RLS [26487] (Left knee extensor mechanism realignment with lateral retinacular release) OK LATERAL RETINACULAR RELEASE OPEN [12829] Interval History: Shannon Godinez, 66 y.o. female, [...] Plan for discharge to Subacute Rehab Facility ([facility] or [facility]) when cleared by PT and medically stable [...] or worsening End of Shift Summary: Progressing [facility]- Referral received and chart reviewed. Patient accepted by [facility]. Spoke to patient over phone and answered questions. She has been to our facility in the past. Will follow in in AM. Patient needs a rapid Covid prior to admission. Alicia Jacobo RN [phone] If [facility] can not accept the patient would like the next referral to [facility] Patient not discharging today called Dr Simpson and telephone order received to start the cleocin 300mg Q12hr for 10days as ordered for discharge Updated the patient she needs to choose another facility and she states she has gone to [facility] and would like a referral and sent. Called Admissions and they will review the referral. Spoke to [facility] and they have no beds. [phone]. Have tried constantly for 15 minutes to call [facility] and no one answers. Line rings abut 10 times and then cuts off. [phone] Called Admissions at [facility] and she has the referral and will let CM know shortly if they will accept [facility] Physical Therapy Treatment PT Discharge Recommendations: snf facility placement Distance Ambulated (ft): 30 Device: [...] of care until patient is discharged from [facility][Note 2]. Objective 04/21/22 1401 General Family/Caregiver Present No [...] PT Plan Skilled PT PT Discharge Recommendations snf facility placement Goals/Education Encounter Problems Encounter Problems [...] End: 04/23/22 Outcomes Date/Time User Outcome 04/21/22 144 Licha Kelley PTA Progressing Goal: Caregiver/patient will [...] Understanding Education Comments No comments found. 04/21/22 7116 Clinical Encounter Type Visited With Patient Time Spent 15 Minutes Type of Contact Introduction SPIRITUAL CARE ASSESSMENT Spiritual Care Assessment: Pt appropriate and coping peaceful and positive Spiritual Intervention: Active listening [facility] provided Outcome: Pt shared feelings and treatment hopes Plan: PC will return at pt/family request. DR Simpson called back and he is in surgery off site and unable to enter an order Order received for Lovenox 40mg daily for 7 days DC aspirin. Called [facility] they have the referral and could be able to answer within an hour if they will be able to accept. Message left for Dr Simpson as patient can not take aspirin for a new anticoag order Called [facility] and spoke to the test desk supervisor. [phone]. Admissions is not in for another hour or two. She states they do have beds and faxed the referral to [phone] Patient would like [facility]. Referral sent and message left for Admissions [facility] [phone] but they are an IPR and since the last IPR said she did not qualify for IPR CM is not anticipating an acceptance. Discussed with the patient and she would liek a referral to [facility] Patient eating lunch. Declines at this time to finish eating. Will attempt again in pm. Patient would like [facility] in [place], Called the [facility] spoke to Alphonso [phone] She does not have beds until Maybe next week. Updated the patient she would like to try [facility] called [phone] spoke to Connie she does not have beds until at less next Sunday Patient would like I[facility] at [facility] Called Cori [phone] fax [phone] In admissions with referral and she does [...] opiates, and antibiotics to surgical service. Disposition: snf facility. Subjective Patient reports pain is currently [...] Plan for discharge to Subacute Rehab Facility ([facility] or [facility]) when cleared by PT and medically [...] d/c to SNF when able. 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, initial encounter ([facility]) Past Medical History: Diagnosis Date Anxiety Arthritis Chronic pain disorder COPD (chronic obstructive pulmonary disease) ([facility]) GERD (gastroesophageal reflux disease) Hypertension Pulmonary embolism ([facility]) 2019 Wears dentures Wears glasses Past Surgical [...] Tolerated Orthoses Applied (T-ROM) Prosthesis/Orthosis Used Left (24/7 locked, no flexion) Pain Assessment Pain Assessment [...] of Steps 5 Prior Function Level of Delaplane Independent with mobility and functional transfers Receives [...] 1-2 times per day PT Discharge Recommendations snf facility placement PT - Evaluation Status Complete [...] what SNF she wants to go to [facility]. Brother will transport. CM will complete assessment tomorrow However Referral to [facility] faxed to [phone] still need P.T. Eval and will need Written Rx's on Rounds for SNF Son notified not to pick up operator the prescriptions Escribed to her pharmacy. Patient has not arrived to the IP floor for CM assessment Will be seen tomorrow Pain rated at 7 but respiratory rate as low as 9 per minute. Vital signs stable. Meets criteria for discharge/transfer from PACU. documented in this encounter [facility] 04-22-2022 Hospital course Narrative Coumadin-At discharge please follow up with your prescribing provider regarding follow up/labs and appointment. Please follow surgeon's discharge instructions and prescription directions. Surgeon' discharge instructions are in patient's folder- FOLLOW SURGEON INSTRUCTION SHEETS Contact Surgeon's office with any questions/concerns [phone] [facility]ED [...] mg tablet Other (see Additional Instructions)LAST DOSE 1/12 MEDS PER [facility] Additional Instructions: Instructions to prepare for surgery: [...] prior to your surgery. Check in at clinical registered nurse desk [address] [place] [address]. If Outpatient, these additional instructions apply: An adult must stay with you the whole time you are here and drive you home. An adult must stay with you at home for 24 hours due to Anesthesia. If you have LUPE, you are required to stay 3 hours after your surgery before we can discharge you. documented in this encounter [facility] 04-20-2022 Procedure note Denies need to void. Pad beneath pt dry. 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 PROCEDURE: Left knee arthrotomy, excision of hardware from the patella, lateral retinacular release, proximal realignment of the extensor mechanism. SURGEON: Calos Smith MD AIR AND MISSILE DEFENSE CREWMEMBER: Jelani Burgos PA-C. Burgos was required to assist with the [...] cleared by general medical consultants, admitted to [facility][Note 2], evaluated by the anesthesia team. She is [...] 04/20/2022 15:47:00 LEANN/ROCIO documented in this encounter [facility] 04-20-2022 Consult note Associated Order (s): [...] found for this or any previous visit. [facility] 04-20-2022 Consult note Associated Order (s): [...] any previous visit. documented in this encounter [facility] 04-20-2022 Procedure note All medications administered per Whitley Kelley SN witnessed by myself. [facility] 04-20-[address] Smith notified of patient reporting history of MRSA a couple years ago, has an allergy to Vancomycin and Ancef, currently has Clindamycin ordered. No new orders. [facility] 04-20-2022 History and physical note History and Physical Update ( H&P completed within the previous thirty days ) I personally reviewed the History and Physical, interviewed and examined the patient prior to surgery. No changes have occurred in the patient's condition since the History and Physical was completed. [facility] 04-20-2022 History and physical note History and Physical Update ( H&P completed within the previous thirty days ) I personally reviewed the History and Physical, interviewed and examined the patient prior to surgery. No changes have occurred in the patient's condition since the History and Physical was completed. 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 PROCEDURE: Left knee arthrotomy, excision of hardware from the patella, lateral retinacular release, proximal realignment of the extensor mechanism. SURGEON: Calos Smith MD AIR AND MISSILE DEFENSE CREWMEMBER: Jelani Burgos PA-C. Markell Burgos was required to assist with the [...] cleared by general medical consultants, admitted to [facility][Note 2], evaluated by the anesthesia team. She is [...] CALOS SMITH MD TT: 04/20/2022 15:47:00 AL/ROCIO [facility] 01-06-2022 History of Present illness Narrative All discharge criteria for discharge to home met, medically & surgically. BP u to WNL, tolerating up to bathroom w/o dizziness, lighthedeness. Report called to , station 2 questions answered. Notified Metoprolol and imdur held prior to discharge. Verbalized understanding. Plasma Flow activated for transport to [place]. Per brother. Chemical ice packs for comfort promotion. Spoek with patient and her brother will be here between 9and 10am to transport to [facility]. Faxed HENS Rx' surgeon instruction sheets and AVS to SNF at [phone]. Dischareg folder to nursing for discharge to [facility]. Rx's in folder for tramadol Oxycodone valium gabapentin restoril Surgeon instruction sheets AVS Transfer Summary Number for report to RN [phone] station 2 [facility] - [facility] [...] from last 7 days Lab Units 01/05/22 0358 01/04/22 0453 HEMOGLOBIN g/dL 10.7* 10.8* HEMATOCRIT [...] Results from last 7 days Lab Units 10/06/22 0353 10/05/22 0453 10/04/22 0724 SODIUM mmol/L 134* 133* -- POTASSIUM [...] 11:45 Transcribed by: STEW 01/04/2021 11:41 Technologist: ARCHITECTURAL TECHNICIAN STRESS TEST No results found for this [...] 3 Days Post-Op: Right total knee arthroplasty 60198 - OK ARTHROPLASTY KNEE CONDYLE&PLATEAU MED/LAT CPTS W/WO PATELLA [...] Post-Op status post Right total knee arthroplasty 51410 - OK ARTHROPLASTY KNEE CONDYLE&PLATEAU MED/LAT CPTS W/WO PATELLA [...] to discharge to an impatient unit or fdc facility. [facility]) Orthopaedic Surgery Progress Note 2 Days Post-Op: Right total knee arthroplasty 80463 - OK ARTHROPLASTY KNEE CONDYLE&PLATEAU MED/LAT CPTS W/WO PATELLA [...] Post-Op status post Right total knee arthroplasty 42071 - OK ARTHROPLASTY KNEE CONDYLE&PLATEAU MED/LAT CPTS W/WO PATELLA RESURFACING . - WBAT on the operative extremity - home coumadin, continue lovenox bridge, INR yesterday 0.9 for DVT ppx - PT - Follow-up in clinic in 6 weeks - Plan for discharge to Subacute Rehab Facility ([facility] or [facility]) when cleared by PT and medically stable Spoke to the patient and she called her brother who will be her transport and he wants to leave here by 0900am. Reached out to [facility] to complete Rx's for home meds. Pt sleeping soundly and did not rouse to name of knock. Will attempt again in am. Message left for Admissions Christy at [place] cell ph [phone] and office [phone] Called [facility] [facility] and they Clothing Designer provided Admissions cell of Christy [phone] Called her and she still does not have an answer from the admissions team and D.O.N. she will call when she knows. Physical Therapy Treatment PT Discharge Recommendations: snf facility placement, Inpatient rehab facility placement Distance [...] Subjective Pt agreeable to treatment. Requesting this BRANCH MANAGER TRAINEE move her LEs out of the bed. Education and instruction provided. Requesting bathroom urgently. Mobility noted below. At end of treatment pt sitting in chair awaiting lunch. Continue to follow until pt is d/c from [facility]. Vitals/Pain Pain Assessment Pain Assessment: 0-10 [...] PT Plan: Skilled PT PT Discharge Recommendations: snf facility placement, Inpatient rehab facility placement Goals: [...] Teach fall prevention measures, taught by Licha eKlley PTA at 01/05/2022 2:07 PM. Learner: Patient Readiness: Acceptance Method: Explanation, Demonstration Response: Verbalizes Understanding, Demonstrated Understanding Mobility Training, taught by Licha Kelley PTA at 01/05/2022 2:07 PM. Learner: Patient Readiness: Acceptance Method: Explanation, Demonstration Response: Verbalizes Understanding, Demonstrated Understanding Education Comments No comments found. Into see the patient and reviewed discharge plan to SNF. Awaiting to hear from [place] for acceptance. Discussed transportation and her brother can transport. Encouraged IS as patient still needs to wean from oxygen. Message left for Admissions at [facility]. [phone] to see if they can accept. GENERAL [...] 7 days Lab Units 01/05/22 0353 01/04/223 01/03/22 0724 SODIUM mmol/L 134* 133* -- [...] 11:45 Transcribed by: STEW 01/04/2021 11:41 Technologist: ARCHITECTURAL TECHNICIAN STRESS TEST No results found for this [...] to discharge to an inpatient unit or fdc facility. NN met with the pt at bedside. Pt would like a referral sent to [facility]. She will continue to review the list for choices 2 and 3 in the event [place] cannot accept. Referral sent via Door 6 Fax. 01/04/22 1531 Clinical Encounter Type Visited With Patient Time Spent 20 Minutes Type of Contact Introduction SPIRITUAL CARE ASSESSMENT Spiritual Care Assessment: Pt appropriate and coping peaceful and positive calderon and family are supportive Spiritual Intervention: Active listening Discuss coping style [facility] provided [place] given Outcome: Pt shared feelings and values expressed gratitude Plan: PC will return at pt/family request. CM received IB call from Cori with [facility]. They do not have bed availability for patient until at least next Sunday. CM will print Medicare SNF list and provide to patient for subsequent choices. Physical Therapy Treatment PT Discharge Recommendations: snf facility placement, Inpatient rehab facility placement Distance [...] completed with mod/max assist. Mobility noted below. [place] pillow placed at right foot to assist in pt right LE positioning as pt position of comfort is with external rotation and knee slightly bent. Education provided. Continue as per PT POC until pt is d/c from [facility]. Vitals/Pain Pain Assessment Pain Assessment: 0-10 [...] PT Plan: Skilled PT PT Discharge Recommendations: snf facility placement, Inpatient rehab facility placement Goals: [...] comments found. Voice message left for Cor[facility] [phone]. NN inquiring about the status of referral. CM phone number provided for a return call. Physical Therapy Treatment PT Discharge Recommendations: Inpatient rehab facility placement, snf facility placement Distance Ambulated (ft): 30 Device: [...] training Therapeutic Activity Therapeutic Activity Time Entry: Therapeutic Activity 1: bed mob Therapeutic Activity 2: trasnfers Therapeutic Activity 3: education on importance of HEP Assessment/Plan PT Assessment Prognosis: Good Evaluation/Treatment Tolerance: Patient limited by pain Medical Staff Made Aware: Yes Comments: RN notified that pt with increased pain and asking for meds Plan PT Plan: Skilled PT PT Discharge Recommendations: Inpatient rehab facility placement, snf facility placement Goals: Encounter Problems Encounter Problems [...] from last 7 days Lab Units 01/04/223 01/03/22 0724 SODIUM mmol/L 133* -- POTASSIUM [...] 11:45 Transcribed by: STEW 01/04/2021 11:41 Technologist: ARCHITECTURAL TECHNICIAN STRESS TEST No results found for this [...] 1 Day Post-Op: Right total knee arthroplasty 31706 - OK ARTHROPLASTY KNEE CONDYLE&PLATEAU MED/LAT CPTS W/WO PATELLA [...] Post-Op status post Right total knee arthroplasty 47074 - OK ARTHROPLASTY KNEE CONDYLE&PLATEAU MED/LAT CPTS W/WO PATELLA [...] tomorrow to acquire update of needed. # [phone] PT note is in and this CM faxed the referral to the requested IPR for review Physical Therapy Physical Therapy Evaluation PT Discharge Recommendations: snf facility placement Distance Ambulated (ft): 30 Device: [...] on. Pt. Has maureen. PT educated pt. Re LE VRE. See below for pts. Status. Pt. Returned to supine with all items in reach. Ice to R knee. Pt. Plans to discharge to IPR as lives alone. Pt. Has 5 steps [...] Level of Function: Prior Function Level of Delaplane: Independent with mobility and functional transfers Receives [...] 1-2 times per day PT Discharge Recommendations: snf facility placement PT - Evaluation Status: Complete [...] transitioning home alone. Patient has requested [facility]. Patient states her brother will plan to provide transportation at time of discharge. CM was able to reach the admissions dept and the facility is an [facility], no swing bed/ TCU unit at this facility. Patient with multiple co morbidities and this CM will fax the referral for review to [phone] for review. Patient was educated a SNF [...] Data Referral Reason Discharge Planning County Information [facility] [place] Patient Information Accompanied by/Relationship telephone call Patient arrived from? Home Support System Extended family Referral To Financial Resources Other (Comment) (no needs identified) Community Resources Other (Comment) (no needs identified) Services Requested DME potential needs No Destination/Placement [facility] Rehab Potential Good CM made telephone call to patient preoperatively to complete initial assessment for discharge planning. Home address and PCP reviewed. Home assessment completed. Patient lives alone in a 1 story home, 5 steps/handrail to enter. Bathroom: tub shower, shower chair. DME reviewed, denies need. Plan: discharge to [facility], brother to provide transportation. Covid testing education provided, patient will schedule. All questions/concerns addressed. documented in this encounter [facility] 01-05-2022 Hospital course Narrative Prescriptions for [...] coumadin clinic regarding Labs and lovenox bridge. [facility] DRAGGER OUT TO HELP MANAGE TO THERAPEUTIC LEVEL -Plasma [...] prior to your surgery. Check in at clinical registered nurse desk [address] [place] [address]. Medication instructions per [facility] recc If Outpatient, these additional instructions apply: An adult must stay with you the whole time you are here and drive you home. An adult must stay with you at home for 24 hours due to Anesthesia. If you have LUPE, you are required to stay 3 hours after your surgery before we can discharge you. documented in this encounter [facility] 01-03-2022 Procedure note Family updated per phone. [facility] 01-03-2022 Procedure note Family updated per phone. Trinity Godinez 1955 ? Retention: Exchange Retention Policy (10 years) Expires: Sun01/01/2032 10:37 AM Retention: Exchange Retention Policy (10 years) Expires: Sun01/01/2032 10:37 AM [email or web address] EXTERNAL CAUTION: This email originated from outside the organization. Do not click links or open any attachments unless you recognize the sender and know the content is safe. If you believe this is spam, forward the message to [email or web address]. - [facility], A Member of [facility] OPERATIVE REPORT PATIENT NAME: Trinity Godinez DATE OF : 1955 [facility]#: [id number] SURGEON: Calos Smith MD, FACS DATE OF SERVICE: 01/03/2022 DATE OF SURGERY: 01/03/2022 PREOPERATIVE DIAGNOSIS: OA right knee (M17.11) POSTOPERATIVE DIAGNOSIS: OA right knee (M17.11) PROCEDURE: Primary Right Total Knee Arthroplasty (53702) Femoral Component: Heidi Biomet Vanguard Cruciate Retaining , Size: 62.5mm Tibial Component: Biomet Fixed I-Beam Stem Tibial Tray 75mm Patella Component: Biomet Series A Standard Patella , 31mm Polyethylene: Vanguard ArCom anterior stabilized 12mm Fixation: Biomet Bone Cement with 1g Vancomycin ATTENDING SURGEON: Calos Smith MD, FACS [employer] AND MISSILE DEFENSE CREWMEMBER: STEPHAN Diane DO INDICATIONS: Patient is a [...] awake, alert, and stable in good condition. AIR AND MISSILE DEFENSE CREWMEMBER/ATTENDING PARTICIPATION: STEPHAN Diane, DO assisted with proper preoperative positioning, preoperative [...] Calos Smith MD, FACS on 01/03/2022 10:28:45 [facility], A Member of [facility] OPERATIVE REPORT PATIENT NAME: Trinity Godinez DATE OF : 1955 CSN#: [id number] SURGEON: Calos Smith MD, FACS DATE OF SERVICE: 01/03/2022 DATE OF SURGERY: 01/03/2022 REF [id number] LOT [id number] Vanguard Knee System 62.5 MM Uncoated knee femur prosthesis, metallic Use By 2031-11-13 () [id number] () [id number] (10) [id number] REF [id number] LOT [id number] Biomet Knee System 75 mm Uncoated knee tibia prosthesis, metallic Use By 2031-10-11 () [id number] () [id number] (10) [id number] REF [id number] LOT [id number] Vanguard Knee System 31 mm 8 mm Polyethylene patella prosthesis Use By 2026-10-10 () [id number] () [id number] (10) [id number] REF [id number] LOT [id number] Vanguard Knee System 12 MM 75 MM Tibial insert Use By 2026-12-22 () [id number] () [id number] (73) [id number] documented in this encounter [facility] 01-03-2022 Procedure note Trinity Godinez 1955 ? Retention: Exchange Retention Policy (10 years) Expires: Sun01/01/2032 10:37 AM Retention: Exchange Retention Policy (10 years) Expires: Sun01/01/2032 10:37 AM [email or web address] EXTERNAL CAUTION: This email originated from outside the organization. Do not click links or open any attachments unless you recognize the sender and know the content is safe. If you believe this is spam, forward the message to [email or web address]. - [facility], A Member of [facility] OPERATIVE REPORT PATIENT NAME: Trinity Godinez DATE OF : 1955 CSN#: [id number] SURGEON: Calos Smith MD, FACS DATE OF SERVICE: 01/03/2022 DATE OF SURGERY: 01/03/2022 PREOPERATIVE DIAGNOSIS: OA right knee (M17.11) POSTOPERATIVE DIAGNOSIS: OA right knee (M17.11) PROCEDURE: Primary Right Total Knee Arthroplasty (92013) Femoral Component: Heidi Biomet Vanguard Cruciate Retaining , Size: 62.5mm Tibial Component: Biomet Fixed I-Beam Stem Tibial Tray 75mm Patella Component: Biomet Series A Standard Patella , 31mm Polyethylene: Vanguard ArCom anterior stabilized 12mm Fixation: Biomet Bone Cement with 1g Vancomycin ATTENDING SURGEON: Calos Smith MD, FACS AIR AND MISSILE DEFENSE CREWMEMBER: STEPHAN Diane DO INDICATIONS: Patient is a [...] awake, alert, and stable in good condition. AIR AND MISSILE DEFENSE CREWMEMBER/ATTENDING PARTICIPATION: STEPHAN Diane DO assisted with proper [...] Calos Smith MD, FACS on 01/03/2022 10:28:45 [facility], A Member of [facility] OPERATIVE REPORT PATIENT NAME: Trinity Godinez DATE OF : 1955 [facility]#: [id number] SURGEON: Calos Smith MD, FACS DATE OF SERVICE: 01/03/2022 DATE OF SURGERY: 01/03/2022 REF [id number] LOT [id number] Vanguard Knee System 62.5 MM Uncoated knee femur prosthesis, metallic Use By 2031-11-13 () [id number] () 975169 (10) [id number] REF [id number] LOT [id number] Biomet Knee System 75 mm Uncoated knee tibia prosthesis, metallic Use By 2031-10-11 () [id number] () [id number] (10) [id number] REF [id number] LOT [id number] Vanguard Knee System 31 mm 8 mm Polyethylene patella prosthesis Use By 2026-10-10 () [id number] () [id number] (10) [id number] REF [id number] LOT [id number] Vanguard Knee System 12 MM 75 MM Tibial insert Use By 2026-12-22 () [id number] () [id number] (32) [id number] [facility] 01-03-2022 History and physical note History and Physical Update ( H&P completed within the previous thirty days ) I personally reviewed the History and Physical, interviewed and examined the patient prior to surgery. No changes have occurred in the patient's condition since the History and Physical was completed. [facility] 01-03-2022 History and physical note History and Physical Update ( H&P completed within the previous thirty days ) I personally reviewed the History and Physical, interviewed and examined the patient prior to surgery. No changes have occurred in the patient's condition since the History and Physical was completed. documented in this encounter [facility] 10-23-2021 Note PROCEDURE: XR KNEE R T 4V or > HISTORY: Pain of right knee joint , chronic COMPARISON: XR knee right 06/20/2020 FINDINGS: BONES:Narrowing of all 3 joint spaces, greatest involving the anterior compartment. Irregular sclerosis of the tibial plateau suggesting possible hmml-ln-pvhp contact and weightbearing. SOFT TISSUES:No visible soft [...] authenticated by: GARO CASILLAS Date: 2021-10-23 07:14 [facility] 01-08-2021 Physician Hospital Discharge summary ATTENTION: CUTOVER PATIENT Please Note: This patient was being treated during the EHR conversion from [employer] to [employer] on 01/08/2021 There are two medical records for this patient; one in [facility] and one in [facility]. To see the remainder of the medical record, refer to the [facility] medical record. If you have questions, please contact the Health Information Management Department Patient Name: TRINITY GODINEZ Patient [facility] 01-08-2021 History of Present illness Narrative Faxed orders to [facility] AT [phone] Discharge fodler to nursing for discharge to [facility]. Rx in folder tylenol tramadol oxycodone. Physical Therapy Physical Therapy Treatment Subjective: Pt declined to participate in PT treatment this afternoon, pt stated she would like to rest. Will continue to follow for skilled PT until D/C from [facility]. Problem: Mobility Goal: Patient will ambulate Outcome: [...] from stand Outcome: Progressing Message left for [facility] to see when they can accept the patient Spoke to Delroy at [facility] she does not want the patient to discharge uptil after 1500. Spoke with patient and Granddaughter is planning to be here at that time anyways. Instructed to take the Discharge folder to [facility] and give the entire folder to [...] Knee Immobilizer when up. May discharge to [facility] if OK with Gen Med and [...] Immobilizer with out-of-bed. Discharge Plan: today to [facility]. LOS: 5 days VALARIE Gan Date: [...] continue to be monitored post discharge at F, avoid nephrotoxic agents. Antibiotics per primary infectious disease service. Left adrenal mass. Noted on ultrasound imaging at outside facility due to renal issues 3.9 cm. Patient will need to follow-up with her surveillance physician/wax ball molder post discharge Acute Post Hemorrhagic Anemia (D62) [...] from Last 1 Encounters: 01/06/21 30.41 kg/m @qolpea18@ No intake/output data recorded. No intake/output data [...] for: [facility] documented in this encounter [facility] 01-08-2021 Hospital course Narrative Patient will need an INR checked within 3 days of discharge to ECF for warfarin management to be monitored by ECF physician. Also needs outpatient follow-up with nephrology for monitoring of kidney function. Please follow-up with your wax ball molder for ongoing surveillance of your kidney function. You should have an INR checked within 3 days of discharge to ECF for management of your warfarin. documented in this encounter [facility] 01-08-2021 Hospital Discharge instructions Marsha Doan [...] alcohol or with certain drugs. This includes ckvp-bii-lenmezq medicines. Make sure your doctor knows about [...] Where can you learn more? Go to [email or web address] chart Enter P175 in the search box to learn more about Learning About Managing Acute Pain at Home. Current as of: July 08, 2020 Content Version: 13.0 [employer]Next. Care instructions adapted under license by your healthcare professional. If you have questions about a medical condition or this instruction, always ask your healthcare professional. [employer] disclaims any warranty or liability for your [...] Where can you learn more? Go to [email or web address] Technologiesmy chart Enter A180 in the search box to learn more about Learning About Opioids and Acute Pain. Current as of: July 08, 2020 Content Version: 13.0 UpNext. Care instructions adapted under license by your healthcare professional. If you have questions about a medical condition or this instruction, always ask your healthcare professional. [employer] disclaims any warranty or liability for your use of this information. The following attachments cannot be sent through Care Everywhere.Incentive Spirometer: General Info (Greenlandic)Constipation (Greenlandic)DVT (Deep Vein Thrombosis): General Info (Greenlandic)Fall Prevention (Greenlandic)Opioids: General Info (Greenlandic)documented in this encounter [facility] 01-07-2021 Hospital Progress note Patient: TRINITY GODINEZ MRN: [id number] Age: 65 years Sex: Female : 1955 Associated Diagnoses: None Author: Rogelio Leyva MD Assessment Assessment Diagnosis: Primary osteoarthritis of left knee (UMJ43-WP M17.12, Working, Medical), Unilateral primary osteoarthritis, left [...] will need to follow-up with her surveillance physician/wax ball molder post discharge Acute Post Hemorrhagic Anemia (D62) [...] Comments (more content not included)... [facility] 01-07-2021 Note ID NOW COVID-19_Abbo tt [facility]ostics [employer] [place] [facility] 01-07-2021 Hospital Progress note Patient: TRINITY GODINEZ MRN: ([id number] Age: 65 years Sex: Female : 1955 [...] / Creatinine Ratio 14 (01/08 04:54) 16 (01/06) Gentamicin Trough Level 1.0 (01/0754) 3.9 (01/05) Tobramycin Level SEE SEPARATE REPORT [...] 12.7 % (01/05) Monocyte Percent 8.1 % (10/06 05:22) Eosinophil Percent 2.2 % (01/05 05:22) Basophil Percent 0.9 % (01/05 05:22) Neutrophil Absolute 5.7 thou/mcL (01/05 05:) Lymphocyte Absolute 0.9 thou/mcL (01/05 05:22) Monocyte Absolute 0.6 thou/mcL (01/05 05:22) Eosinophil Absolute 0.2 thou/mcL (01/05 05:22) Basophil Absolute 0.1 thou/mcL (01/05 05:22) ABO Group A (01/05 05:) A (01/05 05:) Rh Type POSITIVE (01/05 05:) POSITIVE (01/05 05:) Unit # [id number] (01/05 10:56) [id number] (01/05 10:56) List of X-rays performed in last 36 hours No X-rays charted within the last 36 hours I have reviewed the available microbiologic data available at the time (more content not included)... [facility] 01-06-2021 Hospital Progress note Patient: TRINITY GODINEZ MRN: [id number] Age: 65 years Sex: Female : 1955 Associated Diagnoses: None Author: Rogelio Leyva MD Assessment Assessment Diagnosis: Primary osteoarthritis of left knee (UXU80-BQ M17.12, Working, Medical), Unilateral primary osteoarthritis, left [...] O2 at bedtime at the [facility]. Nocturnal/supine desaturation. History of congestive heart [...] will need to follow-up with her surveillance physician/wax ball molder post discharge Acute Post Hemorrhagic Anemia (D62) -received 2 units of PRBCs for hemoglobin 6.8 on 01/05/2021. Hemoglobin 8.8 this morning adequate response. Tolerated transfusion well. No indication for additional transfusion. We will continue to monitor Hold discharge for today. Suspect would like to watch another 24 hours to make sure her renal function continues to improve. Probable plans for discharge to fdc facility in the next 24 hours Supervising Physician Comments Documentation By: Consulting (more content not included)... [facility] 01-05-2021 Hospital Progress note Patient: TRINITY GODINEZ MRN: [id number] Age: 65 years Sex: Female : 1955 Associated Diagnoses: None Author: Autumn VEGA , Rogelio Villalta Assessment Assessment Diagnosis: Primary osteoarthritis of left knee (VRC79-DP M17.12, Working, Medical), Unilateral primary osteoarthritis, left [...] issue (more content not included)... [facility] 01-05-2021 Hospital Progress note Patient: TRINITY GODINEZ MRN: ([id number] Age: 65 years Sex: Female : 1955 [...] 2 / lab test) CHEMISTRY Sodium 141 (01/05) 138 (01/04 05:) Potassium 4.7 (01/05) 5.7 (01/04 05:) Chloride 108 (01/05) 104 (01/04 05:) CO2 27 (01/05) 26 (01/04 05:) Glucose 91 (01/05) 90 (01/04) Glucose POCT No result BUN 36 (01/05) 45 (01/04) Creatinine 2.05 (01/05) 2.32 (01/04) Calcium Total 8.1 (01/05) 8.5 (01/04) Magnesium No result HEMATOLOGY WBC 7.5 (01/05) 7.3 (01/04) RBC 2.50 (01/05) 2.75 (01/04) Hb 6.8 (01/05) 7.5 (01/04) Hematocrit 21.4 (01/05) 23.5 (01/04) Platelets 141 (01/05) 167 (01/04 05:) MCV 85.5 (01/05) 85.5 (01/04 05:) MCH 27.2 (01/05) 27.4 (01/04 05:) RDW 16.0 (01/05) 15.5 (01/04 05:) MCHC 31.8 (01/05) 32.0 (01/04 05:) Neutrophil Ab 5.7 (01/05) 5.8 (01/04) Monocyte [...] Percent 12.7 % (01/05) 13.3 % (01/04 05:) Monocyte Percent 8.1 % (01/05) 7.5 % (01/04 05:) Eosinophil Percent 2.2 % (01/05) 0.2 % (01/04 05:) Basophil Percent 0.9 % (01/05) 0.3 % (01/04) ABO Group A (01/05) A (01/05) Rh Type POSITIVE (01/05) POSITIVE (01/05) Antibody Screen NEGATIVE (01/03 10:05) NEGATIVE (01/03 10:) Unit # [id number] (01/05) [id number] (01/05) List of X-rays performed in l (more content not included)... [facility] 01-04-2021 Surgery Surgical operation note DICTATED [...] on the femur. We used a [place] size D tibial cone. Fixation is Biomet bone cement mixed with 1 g vancomycin. This is the gentamicin laden Biomet cement mixed with 1 g vancomycin. SURGEON: Calos Smith MD AIR AND MISSILE DEFENSE CREWMEMBER: MD Satish Cheng MD assisted with proper [...] cleared by General Medical consultants, admitted to [facility][Note 2]. At this point, she was seen by [...] the tibia. We took our reamers from [employer] and created the cone for this enhanced [...] ap (more content not included)... [facility] 01-04-2021 Hospital Progress note Patient: TRINITY GODINEZ MRN: [id number] Age: 65 years Sex: Female : 1955 Associated Diagnoses: None Author: Autumn VEGA , Rogelio Villalta Assessment Assessment Diagnosis: Primary osteoarthritis of left knee (UTA26-FK M17.12, Working, Medical), Unspecified osteoarthritis, unspecified site [...] O2 at bedtime at the [facility]. Nocturnal/supine desaturation. History of congestive heart [...] Patient (more content not included)... [facility] 01-03-2021 History and physical note Patient: TRINITY GODINEZ MRN: [id number] Age: 65 years Sex: Female : 1955 Associated Diagnoses: None Author: oRgelio Leyva MD Impression Diagnosis Chronic osteoarthritis (EXN13-IY M19.90, 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 Plan Osteoarthritis Left Knee/left [...] at bedtime at the F. Nocturnal/supine desaturation. GERD - (K21.9) Chronic condition [...] will need to follow-up with her surveillance physician/wax ball molder post discharge Supervising Physician Comments Documentation By: Consulting Physician. Chief Complaint Postop Medical Co management History of Present Illness 65 y/o F who is S/P Left TK revision by Dr. Smtih who requests post op medical management. Patient seen and examined, Chart reviewed in PACU. I have reviewed H&P, preop labs & EKG Patient unable to provide much details. Anesthesia Sheet Reviewed - General SBP -upper 90s IVF -2400 mL U/O- Johnson in place. 350 mL noted EBL - 75 mL reported Dexamethasone 10 mg noted given Discussed with WARRANT SERVER Subjective: Rates pain currently -none currently early PACU No nausea, vomiting No Chest pain, sob Past Medical History CHF HTN COPD O2 prn-while in snf, her O2 sat drops when laying down [...] Hypertension Osteoarthritis PE (pulmonary thromboembolism) - 2019 Peripherally inserted central catheter in place - R UE 4FR SL PICC Resolved COVID- - 05/2020 Surgical History Anesthesia History Reactions (Self): Reactions (Family): Transfusion Reactions: Bleeding Tendencies: Surgical/Procedure Hx Revision of knee arthroplasty ([id number]) on 01/03/2021 at 65 Years. Comments: 01/03/2021 13:17 Zoya Hatch RN, I Left knee reimplantation Debridement ([id number]) on 11/19/2020 at 65 Years. Comments: 11/19/2020 [...] CBC,SR,Creat,CRP, Vanco Trough, fax to Dr. Hicks [phone] 3)IV ATB UNTIL reimplant 4)Call Dr. Hicks [...] Report for More Detail Patient: TRINITY GODINEZ Age: 65 years Sex: Female : 1955 Associated Diagnoses: None Author: Becki BERMUDEZ , Alicia Finch Impression Diagnosis Chronic osteoarthritis (RQJ37-JS M19.90, 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 Plan Supervising Physician Comments Documentation By: Consulting Physician. Chief Complaint Postop Medical Co management History of Present Illness 65 y/o F who is S/P Left TK revision by Dr. Smith who requests post op medical management. Data obtained from pre op H&P. Past Medical History CHF HTN COPD O2 prn-while in snf, her O2 sat drops when laying down [...] Bleeding Tendencies: Surgical/Procedure Hx Debridement (SNOMED CT [id number]) performed by Luis Quinn MD , Calos [...] CBC,SR,Creat,CRP, Vanco Trough, fax to Dr. Hicks [phone] 3)IV ATB UNTIL reimplant 4)Call Dr. Hicks [...] last 36 hours documented in this encounter [facility] 01-03-2021 Mycobacterium sp Org specific cx Ql (Unsp spec) [facility] Microbiology PROCEDURE: Culture AFB and Stain [...] NO ACID FAST BACILLI SEEN [facility] Comment on above: Performed By: #### 5 0941-4 ####[address] 01-03-2021 Mycobacterium sp Org specific cx Ql (Unsp spec) [facility] Microbiology PROCEDURE: Culture AFB and Stain [...] NO ACID FAST BACILLI SEEN [facility] Comment on above: Performed By: #### 5 0941-4 ####[address] 01-03-2021 Mycobacterium sp Org specific cx Ql (Unsp spec) [facility] Microbiology PROCEDURE: Culture AFB and Stain [...] NO ACID FAST BACILLI SEEN [facility] Comment on above: Performed By: #### 5 0941-4 ####[address] 01-03-2021 Mycobacterium sp Org specific cx Ql (Unsp spec) [facility] Microbiology PROCEDURE: Culture AFB and Stain [...] NO ACID FAST BACILLI SEEN [facility] Comment on above: Performed By: #### 5 0941-4 ####[address] 01-03-2021 Bacteria identified Sterile body fluid culture Nom (Unsp spec) [facility] Microbiology PROCEDURE: Culture Body Fluid + [...] No Epithelials NO ORGANISMS SEEN [facility] Comment on above: Performed By: #### 6 36-1 ####[address] 01-03-2021 Mycobacterium sp Org specific cx Ql (Unsp spec) [facility] Microbiology PROCEDURE: Culture AFB and Stain [...] NO ACID FAST BACILLI SEEN [facility] Comment on above: Performed By: #### 5 0941-4 ####[address] 01-03-2021 Anesthesiology Preoperative evaluation and management note Patient: TRINITY GODINEZ MRN: ([id number] Age: 65 years Sex: Female : 1955 Associated Diagnoses: None Author: Pramod Parry MD Preoperative Information Planned Procedure Left Knee Revision Histories Past Medical History: Active Anxiety CHF (congestive heart failure) COPD (chronic obstructive pulmonary disease) Depression Hypertension Osteoarthritis PE (pulmonary thromboembolism) - 2018 Peripherally inserted central catheter in place - R UE 4FR SL PICC Resolved COVID-19 - 05/2020 Anesthesia History: No previous anesthetic [...] Creat,CRP, Vanco Trough, fax to Dr. Hicks [phone])IV ATB UNTIL reimplant4)Call Dr. Hicks for F/C/S, N/V/D, rash, [phone])F/U with Dr Hicks in 4-5 weeks COMMENTS: [...] p (more content not included)... [facility] 01-03-2021 Hospital Progress note Patient: TRINITY GODINEZ Age: [...] anesthetic injection throughout the procedure. [facility] 01-03-2021 Hospital Progress note Patient: TRINITY GODINEZ Age: [...] anesthetic injection throughout the procedure. [facility] 01-03-2021 Procedure note DICTATED BY: CALOS [...] 1 g vancomycin. SURGEON: Calos Smith MD AIR AND MISSILE DEFENSE CREWMEMBER: MD Satish Cheng MD assisted with proper [...] cleared by General Medical consultants, admitted to [facility][Note 2]. At this point, she was seen by [...] and we did close this over a #10-Bhutanese drain. We closed the subcutaneous tissues with 2-0 Vicryl and the skin with elvira. Applied a very bulky dressing and took the patient to the Post-Anesthesia Care Unit in satisfactory condition. Roentgenographs showed satisfactory position and alignment of components. TRINITY GODINEZ Birthdate: 1955 D/01/03/2021 16:37:19 T/01/03/2021 20:53:46 VOICE JOB ID: [id number] Ramy Santos thanks you for the opportunity to care for your patient. DID: [id number] documented in this encounter [facility] 11-23-2020 Surgery Surgical operation note DICTATED [...] to proceed and she is admitted to [facility][Note 2], evaluated by the anesthesiologist, adductor canal block [...] t (more content not included)... 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 EUA (11/22 13:) MPV 10.2 FL (11/22 04:50) 9.9 FL (11/22 03:30) Diff Method AUTOMATED DIFFERENTIAL (11/22 04:50) AUTOMATED DIFFERENTIAL (11/22 03:30) Neutrophil Percent 65.3 % (11/22 04:50) 66.9 % (11/22 03:30) Lymphocyte Percent 17.5 % (11/22 04:50) 18.7 % (11/22 03:30) Monocyte Percent 13.0 % (11/22 04:50) 12.1 % (11/22 03:30) Eosinophil Percent 3.5 % (11/22 04:50) 1.6 % (11/21 04:30) Basophil Percent 0.7 % (11/22 04:50) 0.7 % (11/22 03:30) List of X-rays performed in last 36 [...] Sever (more content not included)... [facility] 11-22-2020 Hospital Progress note Patient: TRINITY GODINEZ MRN: [id number] Age: 65 years Sex: Female : 1955 Associated Diagnoses: None Author: Trey Martin MD Assessment Assessment Diagnosis: Osteoarthritis of left knee (GRH26-FV M17.9, 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 Plan A medical consult [...] l (more content not included)... [facility] 11-22-2020 Note ID NOW COVID-19_[facility] PETER [facility] 11-22-2020 Physician Hospital Discharge summary CLINICAL SUMMARY Please take this summary document to your follow up appointments. [facility] [place] 2] 11/22/20 14:48 [address] [place]. [address] PATIENT INFORMATION Name: TRINITY GODINEZ Address: [address] [place] [phone] Age: 65 Years Phone: [phone] : 1955 12:00 MRN: ([id number] Sex: Female Race: White Ethnicity: Not Hispan/Lat Admitted From: Clinic or [facility] Medical Service: Orthopedic Surgery Nurse Unit/Bed: (CO) 2NZEN 0221-01 Admit Date: 11/19/2020 09:38 PCP: Levi Shine MD PHYSICIANS INVOLVED WITH CARE Attending Physicians: Luis Quinn MD , Calos - Orthopaedic Surg Admitting Physician: Luis Quinn MD , Calos - Orthopaedic Surg Primary Care Physician:Levi Shine MD,[facility], - Consults: Shailesh VEGA , Grabiel Maciel - Infectious Disease Andrew VEGA , Jose Carrasco - Internal Medicine Mario VEGA , Trey E - Internal Medicine GenHarley, CHAVO - Internal Medicine Angeles VEGA , Kenzie W - Internal Medicine Problems [...] RECOMMENDED TO BE CONTINUED for: TRINITY GODINEZ S aclidinium (Tudorza Pressair 400 mcg/inh inhalation powder) [...] CBC,SR,Creat,CRP, Vanco Trough, fax to Dr. Hicks [phone] 3)IV ATB UNTIL reimplant 4)Call Dr. Hicks [...] CBC,SR,Creat,CRP, Vanco Trough, fax to Dr. Hicks [phone] 3)IV ATB UNTIL reimplant 4)Call Dr. Hicks for F/C/S, N/V/D, rash, 5)F/U with Dr Hicks in 4-5 weeks. Refills: 0., Call Dr. Hicks if released from your facility before IV therapy completed; Notify Dr. Hicks if Patient is admitted to the hospital. Comment Freetext M (more content not included)... [facility] 11-21-2020 Hospital Progress note Patient: TRINITY GODINEZ MRN: [id number] Age: 65 years Sex: Female : 1955 Associated Diagnoses: None Author: Shailesh VEGA , Grabiel Maciel Assessment 1. Knee: Status post re-radical debridement. Intraoperative cultures presently pending. 2. History of infection: Trying to obtain culture reports from her Hospital in [place] from last January. 3. Disposition: Anticipate discharge [...] 04:30) Potassium 4.3 (11/21 04:30) Chloride 106 (11/22 03:30) CO2 29 (11/22 03:30) Glucose 94 (11/22 03:30) Glucose POCT No result BUN 18 (11/21 04:30) Creatinine 1.07 (11/22 03:) Calcium Total 8.2 (11/21) Magnesium No result HEMATOLOGY WBC 7.0 (11/22 03:30) RBC 2.85 (11/22 03:30) Hb 8.5 (11/22 03:) Hematocrit 25.9 (11/21) Platelets 181 (11/22 03:30) MCV 90.9 (11/22 03:30) MCH 29.8 (11/22 03:30) RDW 14.6 (11/22 03:) MCHC 32.8 (11/22 03:) Neutrophil Ab 4.6 (11/22 03:) Monocyte Ab 0.8 (11/22 03:30) Eosinophil Ab 0.1 (11/22 03:) Basophil Ab 0.0 (11/21) Lymphocyte Ab 1.3 (11/21) COAGULATION INR 1.4 (11/22 03:30) 1.0 (11/20 04:20) Prothrombintime (PT) 17.1 Sec (11/21 04:30) 13.6 Sec (11/20 04:20) OTHER LABS Est CrCl IBW (mL/min)-RX 54.29 mL/min (11/21 04:30) 59.88 mL/min (11/20 04:20) Est CrCl AdjBW (mL/min)-R 66.21 mL/min (11/21 04:30) 73.04 mL/min (11/20 04:20) BUN / Creatinine Ratio 17 (11/22 03:30) 19 (11/20 04:20) MPV 9.9 FL (11/22 03:30) 11.1 FL (11/20 04:20) Diff Method AUTOMATED [...] Itching/Pruri (more content not included)... [facility] 11-21-2020 Hospital Progress note Patient: TRINITY GODINEZ MRN: [id number] Age: 65 years Sex: Female : 1955 Associated Diagnoses: None Author: Andrew VEGA , Jose Carrasco Supervising Physician Comments Documentation By: Consulting Physician. Assessment Assessment Diagnosis: Osteoarthritis (KWF35-SY M19.90, 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 Plan Failed left TKR [...] rounds 11/21. Continue to monitor on the [place] protocol. Obesity: BMI 33. follow per [...] CHEMISTRY (more content not included)... [facility] 11-20-2020 Hospital Progress note Patient: TRINITY GODINEZ MRN: ([id number] Age: 65 years Sex: Female : 1955 Associated Diagnoses: None Author: Andrew VEGA , Jose Carrasco Supervising Physician Comments Documentation By: Consulting Physician. Assessment Assessment Diagnosis: Osteoarthritis (QSQ03-GK M19.90, 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 Plan Failed left TKR [...] rounds 11/20. Continue to monitor on the [place] LUPE [...] 04:2 (more content not included)... [facility] 11-19-2020 Hospital Progress note Patient: TRINITY GODINEZ MRN: ([id number] Age: 65 years Sex: Female : 1955 Associated Diagnoses: None Author: Angeles VEGA , Kenzie Carrillo Assessment Assessment Diagnosis: Osteoarthritis (UXN46-ZE M19.90, 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 Plan Failed left TKR [...] (11/19 17:00) Oxygen Delivery: Nasal cannula (11/19 16:00) O2 [...] Radiology Report for More Detail [facility] 11-19-2020 Mycobacterium sp Org specific cx Ql (Unsp spec) [facility] Microbiology PROCEDURE: Culture AFB and Stain [...] NO ACID FAST BACILLI SEEN [facility] Comment on above: Performed By: #### 5 0941-4 ####[address] 11-19-2020 Mycobacterium sp Org specific cx Ql (Unsp spec) [facility] Microbiology PROCEDURE: Culture AFB and Stain [...] NO ACID FAST BACILLI SEEN [facility] Comment on above: Performed By: #### 5 0941-4 ####[address] 11-19-2020 Mycobacterium sp Org specific cx Ql (Unsp spec) [facility] Microbiology PROCEDURE: Culture AFB and Stain [...] CONTRIBUTOR_SYSTEM, CO_PN NO ACID FAST BACILLI SEEN [facility] Comment on above: Performed By: #### 5 0941-4 ####[place] [address] [place], [place] 11-19-2020 Mycobacterium sp Org specific cx Ql (Unsp spec) [facility] Microbiology PROCEDURE: Culture AFB and Stain [...] NO ACID FAST BACILLI SEEN [facility] Comment on above: Performed By: #### 5 0941-4 ####[address] 11-19-2020 Anesthesiology Preoperative evaluation and management note Patient: TRINITY GODINEZ MRN: ([id number] Age: 65 years Sex: Female : 1955 [...] Admission Med Reconciliation: Complete 11/19/20 05:37:52 by Sarha BERMUDEZ , Ange R [place] Medications: ascorbic acid 1,000 mg = 1 [...] m (more content not included)... [facility] 11-17-2020 Hospital Progress note Patient: TRINITY GODINEZ MRN: [id number] Age: 65 years Sex: Female : 1955 [...] anesthetic injection throughout the procedure. [facility] 11-17-2020 Anesthesiology Preoperative evaluation and management note Patient: TRINITY GODINEZ MRN: [id number] Age: 65 years Sex: Female : 1955 [...] PE (pulmonary thromboembolism) - 2019 Resolved COVID-05/2020 , Cardiovascular, Respiratory, Renal, Endocrine, [...] 11:29:18 by Fely BERMUDEZ , Teresita Gibbs [place] Medications: ascorbic acid 1,000 mg = 1 [...] I (more content not included)... [facility] Evaluation note Diagnosis Pain management documented in this encounter [facility] note* Diagnosis Unilateral primary osteoarthritis, right knee S/P TKR (total knee replacement), right documented in this encounter [facility] note* Diagnosis 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, initial encounter ([facility])- Primary Complication of internal left knee prosthesis ([facility]) documented in this encounter [facility] Discharge instructions* Attachments The following attachments cannot be sent through Care Everywhere. * Acute Pain Management: General Info (Greenlandic) * Opioids: Safe Use (Greenlandic) * Fall Prevention (Greenlandic) * DVT (Deep Vein Thrombosis): Prevention: General Info (Greenlandic) * Constipation (Greenlandic) * Incentive Spirometer: General Info (Greenlandic) * warfarin (oral) (Greenlandic) * Enoxaparin (Lovenox) ([place]ic) [facility]* Attachments The following attachments cannot be sent through Care Everywhere. * DVT (Deep Vein Thrombosis): Prevention: General Info (Greenlandic) * Incentive Spirometer: General Info (Greenlandic) * Fall Prevention (Greenlandic) * Opioids: General Info (Greenlandic) * Constipation (Greenlandic) * warfarin (oral) ([place]ic) * enoxaparin ([place]landic) * Antibiotics: General Info ([place]ic) [facility] N[facility]* Auth/Cert Specialty Diagnoses / Procedures Referred By Mirella t Referred To Contact Diagnoses Unilateral primary osteoarthritis, right knee M17.11 Procedures OK ARTHROPLASTY KNEE CONDYLE&PLATEAU MED/LAT CPTS W/WO PATELLA RESURFACING OK ARTHROPLASTY KNEE CONDYLE&PLATEAU MED/LAT CPTS W/WO PATELLA RESURFACING Right total knee arthroplasty Calos Smith MD [address] [place] [address] Referral ID Status Reason Start Date Expiration Date Visits Re quested Visits Authorized [id number] 11/08/2021 1 1 [facility] for visit Narrative* Auth/Cert Specialty Diagnoses / Procedures Referred By Mirella t Referred To Contact Diagnoses 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, initial encounter ([facility]) t84.093a Procedures OK RECONSTR DISLOCATING PATELLA W EXT REALIGNMENT AND/OR MUSCLE ADVMNT/RLS OK LATERAL RETINACULAR RELEASE OPEN Left knee extensor mechanism realignment with lateral retinacular release Calos Smith MD [address] [facility] [address] [place] [address] [facility] [address] [place] [address] Referral ID Status Reason Start Date Expiration Date Visits Re quested Visits Authorized [id number] 1 1 [facility] Summary Purpose Family History No Family [...] Findings Note Patient: TRINITY GODINEZ MRN : [facility])-[id number] Age: 65 years Sex: Female : 1955 [...] concluded. Note Patient: TRINITY GODINEZ MRN : ([facility])-[id number] Age: 65 years Sex: Female : 1955 [...] and content) DATE CREATED AUTHOR 11/28/2020 [facility] DATE CREATED AUTHOR AUTHOR'S ORGANIZ ATION 01/12/2021 [facility] DATE CREATED AUTHOR AUTHOR'S ORGANIZ ATION 03/04/2021 [facility] DATE CREATED AUTHOR AUTHOR'S ORGANIZ ATION 04/30/2021 [facility] DATE CREATED AUTHOR AUTHOR'S ORGANIZ ATION 09/08/2022 [facility] DATE CREATED AUTHOR AUTHOR'S ORGANIZ ATION 02/21/2023 [facility] DATE CREATED AUTHOR AUTHOR'S ORGANIZ ATION 02/21/2023 [facility] DATE CREATED AUTHOR AUTHOR'S ORGANIZ ATION 09/25/[address] [facility] Ordered Prescriptions (unrec ognized [...] Teresita Hirsch RN)2120 (Given - Provider: Richard Hernandez, AIDAN) 0607 (Given - Provider: Richard Hernandez, AIDAN)1429 (Given - Provider: Teresita Hirsch RN)2227 (Given - Provider: Richard Hernandez, AIDAN) 0615 (Given - Provider: Richard Hernandez, AIDAN) diazePAM (VALIUM) tablet 2.5 mg 2.5 mg, [...] RN)2041 (Given - Provider: Richard Hernandez RN) 102 (Not Given - Provider: Kym [...] oral, Nightly, First dose on Sun01/03/22 at 2099 2119 (Given - Provider: Richard Hernandez RN) 2041 [...] 0842 (Given - Provider: Teresita Hirsch RN) 102 [...] RN)2041 (Given - Provider: Richard Hernandez RN) 102 (Not Given - Provider: Kym [...] RN)2041 (Given - Provider: Richard Hernandez RN) 102 (Not Given - Provider: Kym [...] Hernandez RN) 0343 (Given - Provider: Richard Hernandez RN)0847 (Given - Provider: Teresita Hirsch RN)1250 (Given [...] Hernandez RN) 0847 (Given - Provider: Marsha Nixon, AIDAN)1302 (Given - Provider: Marsha Nixon RN)2041 (Given [...] & On Unit, premix bag, Indication: Prophylaxis-Surgical 220 (New Bag - Provider: Richard Hernandez RN) 0516 (New Bag - Provider: Richard Hernandez, [...] daily, First dose on Sun04/20/22 at 2100 2208 (Given - Provider: Richard Hernandez RN) 0846 [...] infusion (COMPLETED) 100 mL/hr, intravenous, Once, On Yvette 04/20/22 at 1230, For 1 dose, Preprocedure 1242 (New Bag - Provider: Lynnette Hodges RN) metoprolol succinate (TOPROL-XL) 24 Hour tablet 100 mg 100 mg, oral, 2 times daily, First dose on Yvette 04/20/22 at 2100, Do not crush or chew. 2136 (Not Given - Provider: Richard Hernandez RN - Reason: Contraindicated) 0846 (Given - Provider: Marsha Nixon RN)2046 (Given - Provider: Fadumo Pittman, AIDAN) 0848 (Given - Provider: Tracy Agudelo RN) polyethylene glycol (MIRALAX) packet 17 g 17 g, oral, Daily, First dose on Yvette 04/20/22 at 1999 210 (Not Given - Provider: Richard Hernandez RN - Reason: Patient/Resident/Ag ent refused - education provided ) 0857 (Not Given - Provider: Masrha Nixon RN - Reason: Patient/Resident/Agent refused - [...] Marsha Nixon RN)2040 (Given - Provider: Fadumo Pittman, AIDAN) 0847 [...] Sun04/20/22 at 2100, Recovery & On Unit 2137 [...] 2024 (Given - Provider: Richard Hernandez RN) 204 (Given - Provider: Fadumo Pittman RN) tranexamic [...] Nixon RN) 0847 (Given - Provider: Tracy Agudelo, AIDAN) venlafaxine XR (EFFEXOR-XR) 24 hr capsule 75 mg 75 mg, oral, Daily, First dose on Sun04/21/22 at 0900, Capsule may be swallowed whole, or may be opened and its contents sprinkled on applesauce if consumed immediately without chewing. Do not crush or chew. 0847 (Given - Provider: Marsha Nixon RN) 0853 (Given - Provider: Tracy Agudelo, RN) warfarin (COUMADIN) tablet 3 mg 3 [...] 1706 (New Bag - Provider: Meghan Muller, RN) 2154 (New Bag - Provider: Fadumo Pittman, AIDAN) Oxygen Therapy, Adult inhalation, Continuous, Starting on Yvette 04/20/22 at 1715, Titrate 1 lpm - 4 lpm to keep SpO2 above 90%. If flow is increased above 4 lpm, please contact the physician., Device: Nasal Cannula, Keep O2 Sat Above: 90% 171 (Canceled Entry - Provider: Automatic Discharge Provider - Comment: Automatically canceled at discontinue of medication order) PRN Medication Order 04/20/2022 04/21/2022 04/22/2022 acetaminophen (TYLENOL) tablet 325 mg 325 mg, oral, Every 6 hours PRN, mild pain, headaches, fever, Starting on Sun04/20/22 at 165 albuterol 2.5 mg /3 mL (0.083 %) nebulizer solution 2.5 mg 2.5 mg, nebulization, Every 4 hours PRN, wheezing, Starting on Sun04/20/22 at 1652 aluminum-magnesium hydroxide-simethicone (MAALOX) 200-200-20 mg/5 mL suspension 30 mL 30 mL, oral, 4 times daily PRN, indigestion, heartburn, Starting on Sun04/20/22 at 165 bethanechol (URECHOLINE) tablet 25 mg 25 mg, oral, 3 times daily PRN, As needed for urinary retention or PVR greater than 400 cc, Starting on Sun04/20/22 at 165 bisacodyL (DULCOLAX) suppository 10 mg 10 mg, rectal, Daily PRN, constipation, If magnesium hydroxide ineffective, Starting on Sun04/20/22 at 165 cloNIDine (CATAPRES) tablet 0.1 mg 0.1 mg, oral, Every 8 hours PRN, high blood pressure, for SBP more than 170 or DBP more than 105, Starting on Yevtte 1/19/23 at 1652 cyclobenzaprine (FLEXERIL) tablet 5 mg 5 mg, oral, 3 times daily PRN, muscle spasms, Starting on Yvette 04/20/22 at 1652 0516 (Given - Provider: Richard Hernandez RN)1302 (Given - Provider: Marsha Nixon RN) 0054 (Given - Provider: Fadumo Pittman RN) [...] Richard Hernandez RN)0629 (Given - Provider: Richard Hernandez RN)1011 (Given - Provider: Marsha Nixon RN) oxyCODONE [...] Pittman RN)1045 (See Alternative - Provider: Tracy Agudelo, AIDAN) oxyCODONE (ROXICODONE) immediate release tablet 20 mg(Linked Group 2) 20 mg, oral, Every 4 hours PRN, severe pain, Starting on Sun04/21/22 at 1355 1418 (Given - Provider: Marsha Nixon RN)1802 (Given - Provider: Marsha Nixon RN)2155 (Given - Provider: Fadumo Pittman RN) 0134 (Given - Provider: Fadumo Pittman RN)0644 (Given - Provider: Fadumo Pittman RN)1045 (Given - Provider: Tracy Agudelo, AIDAN) promethazine (PHENERGAN) suppository 25 mg 25 mg, [...] mg, oral, Nightly PRN, sleep, Starting on Sun04/20/22 at 1652 Linked Groups Order Group 1: Insert peripheral IV (CANCELED) STAT, Once, On Sun04/20/22 at 1653, For 1 occurrence
Recovery & [...] Care Teams (unrecognized sec tion and content) Police Investigator Relationship Specialty Start Date End Date Levi Shine MD [address] [place] [phone] PCP - General 11/22/20 Police Investigator Relationship Specialty [place] [address] [place] [phone] PCP - General 11/22/20 Police Investigator Relationship Specialty [place] [address] [place] [phone] PCP - General 11/22/20 FOR RECORDS PERTAINING [...] BE BASED ON THE PRIMARY CLINICAL RECORDS. [employer] [facility]. provides no warranty or guarantee of the accuracy or completeness of information in this document.
--- NOTE | 2024-11-20 13:42 | XR_ITS ---
[facility] [place] [id number] Patient Name: GABRIELA GODINEZ MRN: [id number] date: 1955 Sex: F Assigned Patient Location: [facility] Current Patient Location: [facility] Accession/Order Number: [id number] Exam Date: 11/20/2024 13:30 Report Date: 11/20/2024 16:12 At the request of: LEVI SHINE MD Procedure: XR hip RT 2V w/ pelvis 2 views right hip a single view pelvis HISTORY: Right hip pain for 2 weeks. Recent falls. The bilateral hip arthroplasties without hardware complication. Adequate alignment. Decreased bony mineralization. No acute displaced fracture. Lumbar and SI joint degeneration. XR/XR hip RT 2V w/ pelvis IMPRESSION: Uncomplicated bilateral hip arthroplasties. Impression dictated by: Harinder Barrientos M.D. 11/20/2024 4:12 PM Dictation Location[facility] Electronically authenticated by: [id number] Y Date: 11/20/2024 16:12
== END 2024-11-20 13:12 | disposition home or self-care (01) ==
LOC: RAD 13:15
PROVIDERS: PCP Family Medicine; Visit Provider Family Medicine
DX: M25.551 Pain in right hip (principal); Z96.643 Presence of artificial hip joint, bilateral
CPT/HCPCS: 73502

== ENCOUNTER 2024-11-26 13:47 | Outpatient (OUT) | payer MEDICARE, OTHER, SELFPAY ==
--- OUTSIDE RECORDS SUMMARY | 2024-11-26 13:49 | XMS_ITS | Clinical Summary ---
Author Organization [facility] Address [address] [place] [address], [address] [place] [address] Care Team Providers Care Technical Instructor Course Developer Name Role Phone Unavailable Primary Care [...]
--- NOTE | 2024-11-26 13:51 | MR_ITS ---
[facility] [place] [id number] Patient Name: GABRIELA GODINEZ MRN: [id number] date: 1955 Sex: F Assigned Patient Location: MRI Current Patient Location: MRI Accession/Order Number: [id number] Exam Date: 11/26/2024 14:00 Report Date: 11/26/2024 16:56 At the request of: LEVI SHINE MD Procedure: MR hip RT wo con MRI of the right hip without contrast HISTORY: Acute right hip pain. No injury. The 2 weeks duration. COMPARISON: Plain film imaging of the pelvis and right hip demonstrate bilateral hip arthroplasties Susceptibility artifact from bilateral hip arthroplasties limiting assessment. No retracted tear involving the gluteus musculature. Edematous changes of the gluteus tendons of the greater trochanter suggesting tendinosis/tendinopathy. adequate alignment of bony structures. No visible bone marrow edema. No linear fracture seen. No muscle edema. No intramuscular hematoma or fluid collections. Subcutaneous lateral right hip edema without organized fluid collection. Likely postsurgical. MR/MR hip RT wo con IMPRESSION: Right hip arthroplasty with magnetic susceptibility artifact limiting assessment. No acute bony findings. No acute muscular findings. Tendinopathy of the gluteus tendons. Expected findings of lateral approach. No distended soft tissue fluid collection. Impression dictated by: Harinder Barrientos M.D. 11/26/2024 4:56 PM Dictation [facility] Electron[facility] authenticated by: [id number] Y Date: 11/26/2024 16:56
--- OUTSIDE RECORDS SUMMARY | 2024-11-26 13:51 | XMS_ITS | Clinical Summary ---
Author Organization [facility] Address [address] [place] [address] Care Team Providers Care Superintendent Pier Name Role Phone Unavailable Primary Care Provider [...] 05/05/2020 8:07 AM EST Plan of Treatment Health Maintenance Due Date Last Done Comments CT Colonography 1955 Colonoscopy 1955 Colorectal Cancer Screening 1955 FIT-DNA 1955 FIT 1955 FOBT 1955 Medicare Annual Wellness (AWV) 1955 Sigmoidoscopy 1955 Depression Screening 1969 Adult Tetanus 1979 Mammogram 1997 Pneumococcal Vaccine: 50+ Ye ars (1 of 1 - PCV) 2007 Zoster Vaccines (1 of 2) 2007 Fall Risk Screening 2022 COVID-19 Vaccine (2023-2 5 season) 2023 Influenza Vaccine (#1) 2024 HIB Vaccines Aged Out No longer eligi ble based on patient's age to complete this topic HPV Vaccines Aged Out No longer eligi ble based on patient's age to complete this topic IPV Vaccines Aged Out No longer eligi ble based on patient's age to complete this topic Meningococcal B Vaccine Aged Out No l onger eligible based on patient's age to complete this topic Meningococcal Vaccine Aged Out No ventura rafael eligible based on patient's age to complete this topic Rotavirus Vaccines Aged Out No longer eligible based on patient's age to complete this topic [place] [id number] [place] [address]
--- OUTSIDE RECORDS SUMMARY | 2024-11-26 13:51 | XMS_ITS | Clinical Summary ---
Author Organization [facility] Address [address] [place] [id number] Care Team Providers Care Photographic Plate Maker Name Role Phone Bill Sanderson MD Primary Care Provider + Trinity Rico PROGRAMMER BUSINESS Unavailable [phone] Allergies Active Allergy Reactions Criticality Noted Date Comments Morphine Hives High 05/21/2013 Nsaids (Non-Steroidal Anti-I nflammatory Drug) Anaphylaxis High 05/21/2013 Medications aclidinium bromide (TUDORZA PRESSAIR) 400 mcg/actuation aepb Inhale as instructed twice daily. Active albuterol HFA (VENTOLIN HFA) 90 mcg/actuation inhaler Inhale 2 Puffs as instructed every 6 hours as needed. Active MOMETASONE/FORMOT WIL (DULERA INHALATION) Inhale as instructed twice daily. Active ALPRAZolam (XANAX) 0.25 mg tablet Take 0.25 mg by mouth three times daily. Active CITALOPRAM HYDROBROMIDE (CITALOPRAM ORAL) Take 20 mg by mouth once daily. Active Midodrine HCl 10 mg tablet Take 1 tablet by mouth three times daily. 0 4 Active hyoscyamine (LEVSIN) 0.125 mg tablet Take 2-3 tablets every 4 hours as needed for faintness. 30 tablet 5 4 Active Omeprazole 40 mg capsule Take 40 mg by mouth once daily. Active brimonidine (ALPHAGAN) 0.2 % ophthalmic solution Use 1 Drop in both eyes twice daily. 10 mL 11 5 Active Active Problems Problem Noted Date Diagnosed Date Hypotension 11/27/2013 Tobacco abuse 11/27/2013 Emphysema/COPD 11/27/2013 Dyslipidemia 11/27/2013 Chest pain 11/27/2013 Weight gain 07/23/2013 Adrenal adenoma 07/23/2013 Family History Medical History Relation Comments Cataract Father Glaucoma Father lung cancer[other] Father throat cancer[other] Father Cataract Mother Cervical Cancer Mother HTN[other] Mother Cataract Paternal Grandmother Glaucoma Paternal Grandmother Relation Status Comments Father Mother Paternal Grandmother Social History Tobacco Use Types Packs/Day Years [...] Sign Reading Time Taken Comments Blood Pressure 142/78 12/31/2013 11:00 AM EDT Pulse 63 12/31/2013 11:00 AM EDT Temperature 36.1 C (97 F) 12/11/2013 9:56 AM EDT Respiratory Rate 14 12/11/2013 9:56 AM EDT Oxygen Saturation 95% 12/11/2013 9:56 AM EDT Inhaled Oxygen Concentration - - Weight 98.9 kg (218 lb 1.6 oz) 12/31/2013 11:00 AM EDT Height 174.5 cm (5' 8.7 ) 12/31/2013 11:00 AM ED T Body Mass Index 32.49 12/31/2013 11:00 AM EDT Plan of Treatment Health Maintenance Due Date Last Done Comments Anxiety Screening 1975 Depression Screening 1975 Hepatitis C Screening 1975 DTaP,Tdap,Td Vaccine (1 - Tdap) [address] Colonography 2002 Cologuard (FIT-DNA) 2002 Colonoscopy 2002 Colorectal Cancer Screening 2002 Fecal Occult Blood 2002 Lipid Screening 2002 Sigmoidoscopy 2002 Pneumococcal Vaccine: 50+ (1 of 1 - PCV) 2007 Shingrix Vaccine (1 of 2) 2007 Diabetes Screening 06/17/2016 06/17/2013, 05/30/2013 Bone Density Screening 2022 Advance Directive Discussion 04/02/2024 Influenza Vaccine (#1) 2024 RSV Vaccine (1 - 1-dose 75+ series) 2032 Procedures Procedure Name Priority Date/Time Associated Diagnosis Comments BASIC METABOLIC PANEL STAT 06/17/2013 3:03 AM EDT from Last 3 Months or Most Recently Relevant to Health Maintenance Results * (ABNORMAL) BASIC METABOLIC PNL (06/17/2013 3:03 AM EDT) Glucose 152(H) 65 - 100 mg/dL [facility] BUN 11 8 - 25 mg/dL [facility] Creatinine 0.81 0.70 - 1.40 mg/dL [facility] Sodium 136 132 - 148 mmol/L [facility] Potassium 4.3 3.5 - 5.0 mmol/L [facility] Chloride 105 98 - 110 mmol/L [facility] CO2 20(L) 23 - 32 mmol/L [facility] Anion Gap 11 0 - 15 mmol/L [facility] Calcium 8.6 8.5 - 10.5 mg/dL [facility] Blood specimen (specimen) BLOOD SPECIMEN / Unknown 06/17/2013 3:03 AM EDT 06/17/2013 3:13 AM EDT us Phill Vitale MD LABORATORY Final Resul t [facility] [address] [place] [address] from Last 3 Months or Most Recently Relevant to Health Maintenance Insurance MEDICARE Care Teams Photographic Plate Maker Relationship Specialty Start Date End Date Bill Sanderson MD PCP - General Family Medicine 05/19/13 Trinity Rico, PROGRAMMER [employer] [address] [place] [address] Referring Internal Medicine 07/08/20
--- OUTSIDE RECORDS SUMMARY | 2024-11-26 13:51 | XMS_ITS | Clinical Summary ---
Author Organization [facility] Address [address] [place] [address] Care Team Providers Care Weight Loss Sales Consultant Name Role Phone Unavailable Primary Care Provider [...]
--- OUTSIDE RECORDS SUMMARY | 2024-11-26 14:09 | XMS_ITS | CCD ---
Author Organization [facility] Care Team Providers Care Lease Attendant Name Role Phone CALOS SMITH JR. Referring Unavailable MARSHA HATCH Attending Unavailable Levi Shine MD Primary Care Provider [phone] KARAN SULLIVAN Attending Unavailable LEVI SHINE Primary Care Unavailable LEVI SHINE Referring Unavailable KARAN SULLIVAN Admitting Unavailable KARAN SULLIVAN Attending Unavailable LEVI SHINE Primary Care Unavailable LEVI SHINE Referring Unavailable KARAN SULLIVAN Admitting Unavailable Levi Shine MD Primary Care Provider [phone] Levi Shine MD Primary Care Provider [phone] RL [address] SIMS Attending Unavailable HOY [...] Unavailable HOY, LEVI Primary Care Unavailable MIL GARZA~[id number], IN SEA GARZA~[phone] MIL Referring Unavailable HOY, LEVI Primary Care [...] ceFAZolin; Translations: [CEFAZOLIN] Drug Allergy 1 Anaphylaxis [facility] (5 sources) Morphine; Translations: [MORPHINE] Drug Allergy 1 Hives, Itching [facility] (8 sources) NSAIDs; Translations: [NSAIDS (NON-STEROIDAL ANTI-INFLAMMATOR Y DRUG)] Drug Allergy 3 Anaphylaxis [facility] (5 sources) Vancomycin; Translations: [VANCOMYCIN] Drug Allergy 1 Other [facility] (1 source) Aspirin Drug Allergy 0 [facility] (3 sources) ceFAZolin Drug Allergy 5 [facility] (1 source) Morphine Drug Allergy 0 [facility] (2 sources) Morphine Drug Allergy [address] [facility] Rep[facility] (2 sources) Vancomycin Drug Allergy [facility] Rep[facility] Medications Current Medications Medication [...] 20 mg/ml oral solution (2 sources) Uncompetitive N-komfzf-S-aspartate Receptor Antagonist, Sigma-1 Agonist End: 12-29-2021 take [...] at 0900 take 2 tablets by mo [facility] at bedtime gabapentin (NEURONTIN) 600 mg [...] Oxygen Therapy , Adult polyethylene glycol 3350 84621 mg powder for oral solution (6 sources) [...] administer immediately). take 1 capsule by mo [facility] twice daily potassium chloride (MICRO-K) 10 [...] let 25 mg [facility] six hours as needed [...] Episodic Other aftercare (1 source) Other termite technician (current) drug therapy; Translations: [OTH CANE WEIGHER HELPER CURRENT DRUG THERAPY] Onset: 08-25-2022 Episodic Other aftercare (1 source) penitentiary (current) use of anticoagulants; Translations: [CANE WEIGHER HELPER CURRNT USE ANTICOAGULANTS] Onset: 08-25-2022 Episodic Other [...] (U) No Growth 2 Days PERFORMED BY: [place] [address] PATHOLOGIST [employer] HRMS DEVELOPER KENZIE NICOLE M.D. Normal [facility] Comment on above: Performed By: #### C UU #### [address] Urine Cultureon 09-13-2024 Bacteria identified Cx Nom (U) ORGANISM: Escherichia coli (O:ESCCOL) [place] Count >100,000 Aerobic YUDY Charge (NMIC56) ---- [...] RESISTANT TO ALL B-LACTAM DRUGS. PERFORMED BY: [place] [address] PATHOLOGIST [employer] HRMS DEVELOPER KENZIE NICOLE M.D. Normal [facility] Comment on above: Performed By: #### C UU #### [address] CRP [Mass/Vol]on 02-19-2023 C-Reactive Protein 1.0 mg/dL Normal 0.0-1.0 [facility] Comment on above: Performed By: #### 1 988-5 #### [facility] HOSPITAL LAB [address] [place] [address] ESR (Bld) [Velocity]on 02-19 Basophils (Bld) [#/Vol] 0.09 10*3/uL Normal 0.00-0.20 [facility] Comment on above: Performed By: #### 5 75-1 #### [facility] [place] [facility] LAB [address] [place] [address] Basophils/100 WBC (Bld) 1.1 % Normal 0.0-2.0 [facility] Comment on above: Performed By: #### 5 75-1 #### [facility] [place] [facility] LAB [address] [place] [address] Eosinophils (Bld) [#/Vol] 0.17 10*3/uL Normal 0.00-0.70 [facility] Comment on above: Performed By: #### 75-1 #### [facility] [place] [facility] LAB [address] [place] [address] Eosinophils/100 WBC (Bld) 2.0 % Normal 0.0-7.0 [facility] Comment on above: Performed By: #### 75-1 #### [facility] ([facility]) LAB [address] [place] [address] Erythrocyte distribution width (RBC) [Ratio] 13.5 % Normal 11.0-14.8 [facility] Comment on above: Performed By: #### 75-1 #### [facility] ([facility]) LAB [address] [place] [address] Hematocrit (Bld) [Volume fraction] 39.9 % Normal 34.3-47.9 [facility] Comment on above: Performed By: #### 5 75-1 #### [facility] [place] ([facility]) LAB [address] [place] [address] Hemoglobin (Bld) [Mass/Vol] 12.7 g/dL Normal 12.0-16.0 [facility] Comment on above: Performed By: #### 5 75-1 #### [facility] [place] [facility] LAB [address] [place] [address] Immature granulocytes (Bld) [#/Vol] 0.02 10*3/uL Normal 0.00-0.10 [facility] Comment on above: Performed By: #### 5 75-1 #### [facility] [place] [facility] [address] [place] [address] Immature granulocytes/100 WBC (Bld) 0.2 % Normal 0.0-1.2 [facility] Comment on above: Performed By: #### 5 75-1 #### [facility] [place] [facility] [address] [place] [address] Lymphocytes (Bld) [#/Vol] 2.55 10*3/uL Normal 1.00-4.80 [facility] Comment on above: Performed By: #### 5 75-1 #### [facility] [place] [facility] LAB [address] [place] [address] Lymphocytes/100 WBC (Bld) 30.6 % Normal 17.9-49.6 [facility] Comment on above: Performed By: #### 5 75-1 #### [facility] [place] [facility] LAB [address] [place] [address] MCH 31.4 pcg Normal 27.0-34.0 [facility] Comment on above: Performed By: #### 5 75-1 #### [facility] [place] [facility] LAB [address] [place] [address] MCHC (RBC) [Mass/Vol] 31.8 g/dL Normal 30.8-35.3 [facility] Comment on above: Performed By: #### 5 75-1 #### [facility] [place] [facility] LAB [address] [place] [address] MCV (RBC) [Entitic vol] 98.5 fL High 80.0-97.0 [facility] Comment on above: Performed By: #### 5 75-1 #### [facility] [place] [facility] [address] [place] [address] Monocytes (Bld) [#/Vol] 0.57 10*3/uL Normal 0.00-0.90 [facility] Comment on above: Performed By: #### 5 75-1 #### [facility] [place] ([facility] LAB [address] [place] [address] Monocytes/100 WBC (Bld) 6.9 % Normal 0.0-12.0 [facility] Comment on above: Performed By: #### 5 75-1 #### [facility] [place] [facility] [address] [place] [address] Neutrophils Absolute 4.92 K/mcL Normal 1.80-7.70 [facility] t [facility] Comment on above: Performed By: #### 5 75-1 #### [facility] [place] [facility] [address] [place] [address] Neutrophils/100 WBC (Bld) 59.2 % Normal 38.1-75.5 [facility] Comment on above: Performed By: #### 5 75-1 #### [facility] [place] [facility] [address] [place] [address] Platelet mean volume (Bld) [Entitic vol] 11.5 fL Normal 6.2-12.1 [facility] Comment on above: Performed By: #### 5 75-1 #### [facility] [place] [facility] [address] [place] [address] Platelets (Bld) [#/Vol] 262 10*3/uL Normal 142-424 [facility] Comment on above: Performed By: #### 5 75-1 #### [facility] [place] [facility] [address] [place] [address] RBC (Bld) [#/Vol] 4.05 10*6/uL Normal 3.74-5.34 [facility] Comment on above: Performed By: #### 5 75-1 #### [facility] [place] [facility] [address] [place] [address] WBC (Bld) [#/Vol] 8.3 10*3/uL Normal 4.6-10.2 [facility] Comment on above: Performed By: #### 5 75-1 #### [facility] [place] [facility] [address] [place] [address] CBC AUTO DIFFon 08-30-2022 BASO # 0.1 103/ul Normal 0.0-0.1 [facility] Comment on above: Performed By: #### C BC #### [facility] [address] [address] [address] Jeffrey Thomas Basophils/100 WBC (Bld) 0.9 % Normal 0.2-2.[address] [facility] Comment on above: Performed By: #### C BC #### [facility] [address] [place] [address] Dr. Jeffrey Thomas EO # 0.2 103/ul Normal 0.0-0.[address] [facility] Comment on above: Performed By: #### C BC #### [facility] [address] [place] [address] Dr. Jeffrey Thomas Eosinophils/100 WBC (Bld) 3.9 % Normal 0.9-7.0 [facility] Comment on above: Performed By: #### C BC #### [facility] [address] [place] [address] Dr. Jeffrey Thomas Erythrocyte distribution width (RBC) [Ratio] 14.6 % Normal 11.0-15.0 [facility] Comment on above: Performed By: #### C BC #### [facility] [address] [place] [address] Dr. Jeffrey Thomas Hematocrit (Bld) [Volume fraction] 32.7 % Critically low 36.0-48.0 [facility] Comment on above: Performed By: #### C BC #### [facility] [address] [place] [address] Dr. Jeffrey Thomas Hemoglobin (Bld) [Mass/Vol] 10.3 g/dL Critically low 12.0-16.[address] [facility] Comment on above: Performed By: #### C BC #### [facility] [address] [place] [address] Dr. Jeffrey Thomas IG # 0.01 10e3/ul Normal 0.00-0.03 [facility] Comment on above: Performed By: #### C BC #### [facility] [address] [place] [address] Dr. Jeffrey Thomas IG % 0.2 % Normal 0.0-0.5 [facility] Comment on above: Performed By: #### C BC #### [facility] [address] [place] [address] Dr. Jeffrey Thomas LYMPH # 1.7 103/ul Normal 1.2-3.[address] [facility] Comment on above: Performed By: #### C BC #### [facility] [address] [place] [address] Dr. Jeffrey Thomas Lymphocytes/100 WBC (Bld) 30.8 % Normal 20.5-60.0 [facility] Comment on above: Performed By: #### C BC #### [facility] [address] [place] [address] Dr. Jeffrey Thomas MANUAL DIFF REQ NO Normal [facility] Comment on above: Performed By: #### C BC #### [facility] [address] [place] [address] Dr. Jeffrey Thomas MCH (RBC) [Entitic mass] 30.2 pg Normal 26.7-34.0 [facility] Comment on above: Performed By: #### C BC #### [facility] [address] [place] [address] Dr. Jeffrey Thomas MCHC (RBC) [Mass/Vol] 31.5 g/dL Normal 29.9-35.[address] [facility] Comment on above: Performed By: #### C BC #### [facility] [address] [place] [address] Dr. Jeffrey Thomas MCV (RBC) [Entitic vol] 95.9 fL Normal 81.0-99.[address] [facility] Comment on above: Performed By: #### C BC #### [facility] [address] [place] [address] Dr. Jeffrey Thomas MONO # 0.4 103/ul Normal 0.3-0.[address] [facility] Comment on above: Performed By: #### C BC #### [facility] [address] [place] [address] Dr. Jeffrey Thomas Monocytes/100 WBC (Bld) 7.8 % Normal 1.7-12.0 [facility] Comment on above: Performed By: #### C BC #### [facility] [address] [place] [address] Dr. Jeffrey Thomas NEUT # 3.2 103/ul Normal 1.4-6.5 [facility] Comment on above: Performed By: #### C BC #### [facility] [address] [place] [address] Dr. Jeffrey Thomas Neutrophils/100 WBC (Bld) 56.4 % Normal 43.0-75.0 [facility] Comment on above: Performed By: #### C BC #### [facility] [address] [place] [address] Dr. Jeffrey Thomas Platelet mean volume (Bld) [Entitic vol] 12.9 fL Normal 9.5-13.5 [facility] Comment on above: Performed By: #### C BC #### [facility] [address] [place] [address] Dr. Jeffrey Thomas PLT 149 103/ul Critically low 150-450 [facility] Comment on above: Performed By: #### C BC #### [facility] [address] [place] [address] Dr. Jeffrey Thomas RBC 3.41 106/ul Critically low 4.20-5.40 [facility] Comment on above: Performed By: #### C BC #### [facility] [address] [place] [address] Dr. Jeffrey Thomas WBC 5.6 103/ul Normal 4.0-11.0 [facility] Comment on above: Performed By: #### C BC #### [facility] [address] [place] [address] Dr. Jeffrey [facility] Normal Negative [facility] Comment on above: Performed By: #### C MP #### [facility] [address] [place] [address] Dr. Jeffrey Thomas HCV AB Non-Reactive Normal Non Reactive [facility] Comment on above: Performed By: #### C MP #### [facility] [address] [place], [place] [address] Dr. Jeffrey Thomas Hep A Ab, IgM Negative Normal Negative [facility] Comment on above: Performed By: #### C MP #### [facility] [address] [place], [place] [address] Dr. Jeffrey Thomas Hep B Core Ab, IgM Negative Normal Negative [facility] Comment on above: Performed By: #### C MP #### [facility] [address] [place] [address] Dr. Jeffrey Thomas NM HEPATOBILIARY SCAN W [...] by: GARO CASILLAS Date: 2022-08-30 07:23 Normal [facility] PROF 14(COMP METB)on 023 Albumin [Mass/Vol] 2.5 g/dL Critically low 3.4-5.0 [facility] Comment on above: Performed By: #### T 4LC #### [facility] [address] [place] [address] Dr. Jeffrey Thomas Albumin/Globulin [Mass ratio] 0.9 {ratio} Normal [facility] Comment on above: Performed By: #### T 4LC #### [facility] [address] [address] [address] Jeffrey Thomas ALP [Catalytic activity/Vol] 97 U/L Normal 46-116 [facility] Comment on above: Performed By: #### T 4LC #### [facility] [address] [place] [address] Dr. Jeffrey Thomas ALT [Catalytic activity/Vol] 39 U/L Normal 14-59 [facility] Comment on above: Performed By: #### T 4LC #### [facility] [address] [place] [address] Dr. Jeffrey Thomas Anion gap [Moles/Vol] 12.9 mmol/L Normal [facility] Comment on above: Performed By: #### T 4LC #### [facility] [address] [place] [address] Dr. Jeffrey Thomas AST [Catalytic activity/Vol] 19 U/L Normal 15-37 [facility] Comment on above: Performed By: #### T 4LC #### [facility] [address] [place] [address] Dr. Jeffrey Thomas Bilirubin [Mass/Vol] 0.2 mg/dL Normal 0.2-1.0 [facility] Comment on above: Performed By: #### T 4LC #### [facility] [address] [place] [address] Dr. Jeffrey Thomas Calcium [Mass/Vol] 8.2 mg/dL Critically low 8.5-10.1 [facility] Comment on above: Performed By: #### T 4LC #### [facility] [address] [place] [address] Dr. Jeffrey Thomas Chloride [Moles/Vol] 111 mmol/L Critically high 98-107 [facility] Comment on above: Performed By: #### T 4LC #### [facility] [address] [place] [address] Dr. Jeffrey Thomas CO2 [Moles/Vol] 24.2 mmol/L Normal 21.0-32.0 [facility] Comment on above: Performed By: #### T 4LC #### [facility] [address] [place] [address] Dr. Jeffrey Thomas Creatinine [Mass/Vol] 1.05 mg/dL Critically high 0.55-1.02 [facility] Comment on above: Performed By: #### T 4LC #### [facility] [address] [address] [address] Jeffrey Thomas EGFR-AF TRISTANIAN >60 Normal >=60 [facility] Comment on above: Performed By: #### T 4LC #### [facility] [address] [address] [address] Jeffrey Thomas EGFR-NON AF TRISTANIAN 53 mL/min/1.73m2 Critically low >=60 [facility] Comment on above: Performed By: #### T 4LC #### [facility] [address] [address] [address] Jeffrey Thomas Globulin (S) [Mass/Vol] 2.7 g/dL Normal [facility] Comment on above: Performed By: #### T 4LC #### [facility] [address] [place] [address] Dr. Jeffrey Thomas Glucose [Mass/Vol] 109 mg/dL Critically high 74-106 [facility] Comment on above: Performed By: #### T 4LC #### [facility] [address] [address] [address] Jeffrey Thomas Potassium [Moles/Vol] 4.1 mmol/L Normal 3.5-5.1 [facility] Comment on above: Performed By: #### T 4LC #### [facility] [address] [address] [address] Jeffrey Thomas Protein [Mass/Vol] 5.2 g/dL Critically low 6.4-8.2 Th [facility] Comment on above: Performed By: #### T 4LC #### [facility] [address] [address] [address] Jeffrey Thomas Sodium [Moles/Vol] 144 mmol/L Normal 136-145 [facility] Comment on above: Performed By: #### T 4LC #### [facility] [address] [address] [address] Jeffrey Thomas Urea nitrogen [Mass/Vol] 11.0 mg/dL Normal 7.0-18.0 [facility] Comment on above: Performed By: #### T 4LC #### [facility] [address] [place] [address] Dr. Jeffrey Thomas Urea nitrogen/Creatinine [Mass ratio] 10.5 mg/mg Normal [facility] Comment on above: Performed By: #### T 4LC #### [facility] [address] [place] [address] Dr. Jeffrey Thomas CBC AUTO DIFFon 08-29-2022 BASO # 0.1 103/ul Normal 0.0-0.1 [facility] Comment on above: Performed By: #### T 4LC #### [facility] [address] [place] [address] Dr. Jeffrey Thomas Basophils/100 WBC (Bld) 1.2 % Normal 0.2-2.0 [facility] Comment on above: Performed By: #### T 4LC #### [facility] [address] [place] [address] Dr. Jeffrey Thomas EO # 0.2 103/ul Normal 0.0-0.7 [facility] Comment on above: Performed By: #### T 4LC #### [facility] [address] [place] [address] Dr. Jeffrey Thomas Eosinophils/100 WBC (Bld) 4.1 % Normal 0.9-7.0 [facility] Comment on above: Performed By: #### T 4LC #### [facility] [address] [place] [address] Dr. Jeffrey Thomas Erythrocyte distribution width (RBC) [Ratio] 14.6 % Normal 11.0-15.[address] [facility] Comment on above: Performed By: #### T 4LC #### [facility] [address] [place] [address] Dr. Jeffrey Thomas Hematocrit (Bld) [Volume fraction] 33.6 % Critically low 36.0-48.0 [facility] Comment on above: Performed By: #### T 4LC #### [facility] [address] [place] [address] Dr. Jeffrey Thomas Hemoglobin (Bld) [Mass/Vol] 10.3 g/dL Critically low 12.0-16.0 [facility] Comment on above: Performed By: #### T 4LC #### [facility] [address] [place] [address] Dr. Jeffrey Thomas IG # 0.01 10e3/ul Normal 0.00-0.03 [facility] Comment on above: Performed By: #### T 4LC #### [facility] [address] [place] [address] Dr. Jeffrey Thomas IG % 0.2 % Normal 0.0-0.5 [facility] Comment on above: Performed By: #### T 4LC #### [facility] [address] [place] [address] Dr. Jeffrey Thomas LYMPH # 1.7 103/ul Normal 1.2-3.8 [facility] Comment on above: Performed By: #### T 4LC #### [facility] [address] [place] [address] Dr. Jeffrey Thomas Lymphocytes/100 WBC (Bld) 34.4 % Normal 20.5-60.0 [facility] Comment on above: Performed By: #### T 4LC #### [facility] [address] [place] [address] Dr. eJffrey Thomas MANUAL DIFF REQ NO Normal [facility] Comment on above: Performed By: #### T 4LC #### [facility] [address] [place] [address] Dr. Jeffrey Thomas MCH (RBC) [Entitic mass] 29.5 pg Normal 26.7-34.0 [facility] Comment on above: Performed By: #### T 4LC #### [facility] [address] [place] [address] Dr. Jeffrey Thomas MCHC (RBC) [Mass/Vol] 30.7 g/dL Normal 29.9-35.2 [facility] Comment on above: Performed By: #### T 4LC #### [facility] [address] [place] [address] Dr. Jeffrey Thomas MCV (RBC) [Entitic vol] 96.3 fL Normal 81.0-99.0 [facility] Comment on above: Performed By: #### T 4LC #### [facility] [address] [place] [address] Dr. Jeffrey Thomas MONO # 0.4 103/ul Normal 0.3-0.8 [facility] Comment on above: Performed By: #### T 4LC #### [facility] [address] [place] [address] Dr. Jeffrey Thomas Monocytes/100 WBC (Bld) 8.2 % Normal 1.7-12.0 [facility] Comment on above: Performed By: #### T 4LC #### [facility] [address] [place] [address] Dr. Jeffrey Thomas NEUT # 2.5 103/ul Normal 1.4-6.5 [facility] Comment on above: Performed By: #### T 4LC #### [facility] [address] [place] [address] Dr. Jeffrey Thomas Neutrophils/100 WBC (Bld) 51.9 % Normal 43.0-75.[address] [facility] Comment on above: Performed By: #### T 4LC #### [facility] [address] [place] [address] Dr. Jeffrey Thomas Platelet mean volume (Bld) [Entitic vol] 12.5 fL Normal 9.5-13.[address] [facility] Comment on above: Performed By: #### T 4LC #### [facility] [address] [place] [address] Dr. Jeffrey Thomas PLT 157 103/ul Normal 150-[address] [facility] Comment on above: Performed By: #### T 4LC #### [facility] [address] [place] [address] Dr. Jeffrey Thomas RBC 3.49 106/ul Critically low 4.20-5.40 The [facility] Comment on above: Performed By: #### T 4LC #### [facility] [address] [place] [address] Dr. Jeffrey Thomas WBC 4.9 103/ul Normal 4.0-11.0 [facility] Comment on above: Performed By: #### T 4LC #### [facility] [address] [place] [address] Dr. Jeffrey Thomas PROF 14(COMP METB)on 023 Albumin [Mass/Vol] 2.6 g/dL Critically low 3.4-5.0 [facility] Comment on above: Performed By: #### C MP #### [facility] [address] [place] [address] Dr. Jeffrey Thomas Albumin/Globulin [Mass ratio] 1.0 {ratio} Normal [facility] Comment on above: Performed By: #### C MP #### [facility] [address] [place] [address] Dr. Jeffrey Thomas ALP [Catalytic activity/Vol] 94 U/L Normal 46-116 [facility] Comment on above: Performed By: #### C MP #### [facility] [address] [place] [address] Dr. Jeffrey Thomas ALT [Catalytic activity/Vol] 53 U/L Normal 14-59 [facility] Comment on above: Performed By: #### C MP #### [facility] [address] [place] [address] Dr. Jeffrey Thomas Anion gap [Moles/Vol] 11.2 mmol/L Normal Th [facility] Comment on above: Performed By: #### C MP #### [facility] [address] [place] [address] Dr. Jeffrey Thomas AST [Catalytic activity/Vol] 26 U/L Normal 15-37 [facility] Comment on above: Performed By: #### C MP #### [facility] [address] [place] [address] Dr. Jeffrey Thomas Bilirubin [Mass/Vol] 0.2 mg/dL Normal 0.2-1.0 [facility] Comment on above: Performed By: #### C MP #### [facility] [address] [place] [address] Dr. Jeffrey Thomas Calcium [Mass/Vol] 8.2 mg/dL Critically low 8.5-10.1 Th [facility] Comment on above: Performed By: #### C MP #### [facility] [address] [address] [address] Jeffrey Thomas Chloride [Moles/Vol] 114 mmol/L Critically high 98-107 [facility] Comment on above: Performed By: #### C MP #### [facility] [address] [address] [address] Jeffrey Thomas CO2 [Moles/Vol] 23.1 mmol/L Normal 21.0-32.0 [facility] Comment on above: Performed By: #### C MP #### [facility] [address] [address] [address] Jeffrey Thomas Creatinine [Mass/Vol] 0.95 mg/dL Normal 0.55-1.02 [facility] Comment on above: Performed By: #### C MP #### [facility] [address] [address] [address] Jeffrey Thomas EGFR-AF TRISTANIAN >60 Normal >=60 [facility] Comment on above: Performed By: #### C MP #### [facility] [address] [address] [address] Jeffrey Thomas EGFR-NON AF TRISTANIAN 59 mL/min/1.73m2 Critically low >=60 [facility] Comment on above: Performed By: #### C MP #### [facility] [address] [address] [address] Jeffrey Thomas Globulin (S) [Mass/Vol] 2.6 g/dL Normal [facility] Comment on above: Performed By: #### C MP #### [facility] [address] [address] [address] Jeffrey Thomas Glucose [Mass/Vol] 87 mg/dL Normal 74-106 [facility] Comment on above: Performed By: #### C MP #### [facility] [address] [address] [address] Jeffrey Thomas Potassium [Moles/Vol] 4.3 mmol/L Normal 3.5-5.1 [facility] Comment on above: Performed By: #### C MP #### [facility] [address] [address] [address] Jeffrey Thomas Protein [Mass/Vol] 5.2 g/dL Critically low 6.4-8.[address] [facility] Comment on above: Performed By: #### C MP #### [facility] [address] [place] [address] Dr. Jeffrey Thomas Sodium [Moles/Vol] 144 mmol/L Normal 136-145 [facility] Comment on above: Performed By: #### C MP #### [facility] [address] [place] [address] Dr. Jeffrey Thomas Urea nitrogen [Mass/Vol] 10.0 mg/dL Normal 7.0-18.0 [facility] Comment on above: Performed By: #### C MP #### [facility] [address] [place] [address] Dr. Jeffrey Thomas Urea nitrogen/Creatinine [Mass ratio] 10.5 mg/mg Normal [facility] Comment on above: Performed By: #### C MP #### [facility] [address] [place] [address] Dr. Jeffrey Thomas CBC AUTO DIFFon 08-28-2022 BASO # 0.1 103/ul Normal 0.0-0.1 [facility] Comment on above: Performed By: #### T 4LC #### [facility] [address] [place] [address] Dr. Jeffrey Thomas Basophils/100 WBC (Bld) 1.2 % Normal 0.2-2.0 [facility] Comment on above: Performed By: #### T 4LC #### [facility] [address] [place] [address] Dr. Jeffrey Thomas EO # 0.3 103/ul Normal 0.0-0.7 [facility] Comment on above: Performed By: #### T 4LC #### [facility] [address] [place] [address] Dr. Jeffrey Thomas Eosinophils/100 WBC (Bld) 4.4 % Normal 0.9-7.0 [facility] Comment on above: Performed By: #### T 4LC #### [facility] [address] [place] [address] Dr. Jeffrey Thomas Erythrocyte distribution width (RBC) [Ratio] 14.8 % Normal 11.0-15.0 [facility] Comment on above: Performed By: #### T 4LC #### [facility] [address] [place] [address] Dr. Jeffrey Thomas Hematocrit (Bld) [Volume fraction] 33.5 % Critically low 36.0-48.0 [facility] Comment on above: Performed By: #### T 4LC #### [facility] [address] [place] [address] Dr. Jeffrey Thomas Hemoglobin (Bld) [Mass/Vol] 10.1 g/dL Critically low 12.0-16.0 [facility] Comment on above: Performed By: #### T 4LC #### [facility] [address] [place] [address] Dr. Jeffrey Thomas IG # 0.01 10e3/ul Normal 0.00-0.03 [facility] Comment on above: Performed By: #### 4LC #### [facility] [address] [place] [address] Dr. Jeffrey Thomas IG % 0.2 % Normal 0.0-0.5 [facility] Comment on above: Performed By: #### 4LC #### [facility] [address] [place] [address] Dr. Jeffrey Thomas LYMPH # 2.1 103/ul Normal 1.2-3.8 [facility] Comment on above: Performed By: #### 4LC #### [facility] [address] [place] [address] Dr. Jeffrey Thomas Lymphocytes/100 WBC (Bld) 35.1 % Normal 20.5-60.0 [facility] Comment on above: Performed By: #### T 4LC #### [facility] [address] [place] [address] Dr. Jeffrey Thomas MANUAL DIFF REQ NO Normal [facility] Comment on above: Performed By: #### T 4LC #### [facility] [address] [place] [address] Dr. Jeffrey Thomas MCH (RBC) [Entitic mass] 29.6 pg Normal 26.7-34.[address] [facility] Comment on above: Performed By: #### T 4LC #### [facility] [address] [place] [address] Dr. Jeffrey Thomas MCHC (RBC) [Mass/Vol] 30.1 g/dL Normal 29.9-35.[address] [facility] Comment on above: Performed By: #### T 4LC #### [facility] [address] [place] [address] Dr. Jeffrey Thomas MCV (RBC) [Entitic vol] 98.2 fL Normal 81.0-99.[address] [facility] Comment on above: Performed By: #### T 4LC #### [facility] [address] [place] [address] Dr. Jeffrey Thomas MONO # 0.5 103/ul Normal 0.3-0.[address] [facility] Comment on above: Performed By: #### T 4LC #### [facility] [address] [place] [address] Dr. Jeffrey Thomas Monocytes/100 WBC (Bld) 7.7 % Normal 1.7-12.[address] [facility] Comment on above: Performed By: #### T 4LC #### [facility] [address] [place] [address] Dr. Jeffrey Thomas NEUT # 3.1 103/ul Normal 1.4-6.[address] [facility] Comment on above: Performed By: #### T 4LC #### [facility] [address] [place] [address] Dr. Jeffrey Thomas Neutrophils/100 WBC (Bld) 51.4 % Normal 43.0-75.[address] [facility] Comment on above: Performed By: #### T 4LC #### [facility] [address] [place] [address] Dr. Jeffrey Thomas Platelet mean volume (Bld) [Entitic vol] 12.1 fL Normal 9.5-13.[address] [facility] Comment on above: Performed By: #### T 4LC #### [facility] [address] [address] [address] Jeffrey Thomas PLT 180 103/ul Normal 150-450 [facility] Comment on above: Performed By: #### T 4LC #### [facility] [address] [address] [address] Jeffrey Thomas RBC 3.41 106/ul Critically low 4.20-5.40 [facility] Comment on above: Performed By: #### T 4LC #### [facility] [address] [address] [address] Jeffrey Thomas WBC 6.0 103/ul Normal 4.0-11.0 [facility] Comment on above: Performed By: #### T 4LC #### [facility] [address] [place] [address] Dr. Jeffrey Thomas PROF 14(COMP METB)on 023 Albumin [Mass/Vol] 2.8 g/dL Critically low 3.4-5.0 [facility] Comment on above: Performed By: #### C MP #### [facility] [address] [place] [address] Dr. Jeffrey Thomas Albumin/Globulin [Mass ratio] 1.1 {ratio} Normal [facility] Comment on above: Performed By: #### C MP #### [facility] [address] [place] [address] Dr. Jeffrey Thomas ALP [Catalytic activity/Vol] 96 U/L Normal 46-116 [facility] Comment on above: Performed By: #### C MP #### [facility] [address] [place] [address] Dr. Jeffrey Thomas ALT [Catalytic activity/Vol] 72 U/L Critically high 14-59 [facility] Comment on above: Performed By: #### C MP #### [facility] [address] [place] [address] Dr. Jeffrey Thomas Anion gap [Moles/Vol] 12.8 mmol/L Normal [facility] Comment on above: Performed By: #### C MP #### [facility] [address] [address] [address] Jeffrey Thomas AST [Catalytic activity/Vol] 39 U/L Critically high 15-37 [facility] Comment on above: Performed By: #### C MP #### [facility] [address] [address] [address] Jeffrey Thomas Bilirubin [Mass/Vol] 0.2 mg/dL Normal 0.2-1.0 [facility] Comment on above: Performed By: #### C MP #### [facility] [address] [address] [address] Jeffrey Thomas Calcium [Mass/Vol] 7.8 mg/dL Critically low 8.5-10.1 Th [facility] Comment on above: Performed By: #### C MP #### [facility] [address] [address] [address] Jeffrey Thomas Chloride [Moles/Vol] 115 mmol/L Critically high 98-107 [facility] Comment on above: Performed By: #### C MP #### [facility] [address] [address] [address] Jeffrey Thomas CO2 [Moles/Vol] 20.4 mmol/L Critically low 21.0-32.0 [facility] Comment on above: Performed By: #### C MP #### [facility] [address] [address] [address] Jeffrey Thomas Creatinine [Mass/Vol] 0.98 mg/dL Normal 0.55-1.02 [facility] Comment on above: Performed By: #### C MP #### [facility] [address] [address] [address] Jeffrey Thomas EGFR-AF TRISTANIAN >60 Normal >=60 [facility] Comment on above: Performed By: #### C MP #### [facility] [address] [address] [address] Jeffrey Thomas EGFR-NON AF TRISTANIAN 57 mL/min/1.73m2 Critically low >=60 [facility] Comment on above: Performed By: #### C MP #### [facility] [address] [address] [address] Jeffrey Thomas Globulin (S) [Mass/Vol] 2.6 g/dL Normal [facility] Comment on above: Performed By: #### C MP #### [facility] [address] [place] [address] Dr. Jeffrey Thomas Glucose [Mass/Vol] 80 mg/dL Normal 74-106 [facility] Comment on above: Performed By: #### C MP #### [facility] [address] [address] [address] Jeffrey Thomas Potassium [Moles/Vol] 4.2 mmol/L Normal 3.5-5.1 [facility] Comment on above: Performed By: #### C MP #### [facility] [address] [place] [address] Dr. Jeffrey Thomas Protein [Mass/Vol] 5.4 g/dL Critically low 6.4-8.2 Th [facility] Comment on above: Performed By: #### C MP #### [facility] [address] [place] [address] Dr. Jeffrey Thomas Sodium [Moles/Vol] 144 mmol/L Normal 136-145 [facility] Comment on above: Performed By: #### C MP #### [facility] [address] [place] [address] Dr. Jeffrey Thomas Urea nitrogen [Mass/Vol] 10.0 mg/dL Normal 7.0-18.0 [facility] Comment on above: Performed By: #### C MP #### [facility] [address] [place] [address] Dr. Jeffrey Thomas Urea nitrogen/Creatinine [Mass ratio] 10.2 mg/mg Normal [facility] Comment on above: Performed By: #### C MP #### [facility] [address] [place] [address] Dr. Jeffrey Thomas CBC AUTO DIFFon 08-27-2022 BASO # 0.1 103/ul Normal 0.0-0.1 [facility] Comment on above: Performed By: #### C MP #### [facility] [address] [address] [address] Jeffrey Thomas Basophils/100 WBC (Bld) 1.2 % Normal 0.2-2.0 [facility] Comment on above: Performed By: #### C MP #### [facility] [address] [place] [address] Dr. Jeffrey Thomas EO # 0.2 103/ul Normal 0.0-0.[address] [facility] Comment on above: Performed By: #### C MP #### [facility] [address] [place] [address] Dr. Jeffrey Thomas Eosinophils/100 WBC (Bld) 4.0 % Normal 0.9-7.[address] [facility] Comment on above: Performed By: #### C MP #### [facility] [address] [place] [address] Dr. Jeffrey Thomas Erythrocyte distribution width (RBC) [Ratio] 14.6 % Normal 11.0-15.0 [facility] Comment on above: Performed By: #### C MP #### [facility] [address] [place] [address] Dr. Jeffrey Thomas Hematocrit (Bld) [Volume fraction] 35.8 % Critically low 36.0-48.0 [facility] Comment on above: Performed By: #### C MP #### [facility] [address] [place] [address] Dr. Jeffrey Thomas Hemoglobin (Bld) [Mass/Vol] 11.4 g/dL Critically low 12.0-16.[address] [facility] Comment on above: Performed By: #### C MP #### [facility] [address] [place] [address] Dr. Jeffrey Thomas IG # 0.01 10e3/ul Normal 0.00-0.[address] [facility] Comment on above: Performed By: #### C MP #### [facility] [address] [place] [address] Dr. Jeffrey Thomas IG % 0.2 % Normal 0.0-0.[address] [facility] Comment on above: Performed By: #### C MP #### [facility] [address] [place], [place] [id number] Dr. Jeffrey Thomas LYMPH # 2.0 103/ul Normal 1.2-3.[address] [facility] Comment on above: Performed By: #### C MP #### [facility] [address] [place] [address] Dr. Jeffrey Thomas Lymphocytes/100 WBC (Bld) 35.4 % Normal 20.5-60.0 [facility] Comment on above: Performed By: #### C MP #### [facility] [address] [place] [address] Dr. Jeffrey Thomas MANUAL DIFF REQ NO Normal [facility] Comment on above: Performed By: #### C MP #### [facility] [address] [place] [address] Dr. Jeffrey Thomas MCH (RBC) [Entitic mass] 29.9 pg Normal 26.7-34.0 [facility] Comment on above: Performed By: #### C MP #### [facility] [address] [place] [address] Dr. Jeffrey Thomas MCHC (RBC) [Mass/Vol] 31.8 g/dL Normal 29.9-35.[address] [facility] Comment on above: Performed By: #### C MP #### [facility] [address] [place] [address] Dr. Jeffrey Thomas MCV (RBC) [Entitic vol] 94.0 fL Normal 81.0-99.0 [facility] Comment on above: Performed By: #### C MP #### [facility] [address] [place] [address] Dr. Jeffrey Thomas MONO # 0.5 103/ul Normal 0.3-0.[address] [facility] Comment on above: Performed By: #### C MP #### [facility] [address] [place] [address] Dr. Jeffrey Thomas Monocytes/100 WBC (Bld) 9.2 % Normal 1.7-12.[address] [facility] Comment on above: Performed By: #### C MP #### [facility] [address] [place] [address] Dr. Jeffrey Thomas NEUT # 2.8 103/ul Normal 1.4-6.5 [facility] Comment on above: Performed By: #### C MP #### [facility] [address] [place] [address] Dr. Jeffrey Thomas Neutrophils/100 WBC (Bld) 50.0 % Normal 43.0-75.0 [facility] Comment on above: Performed By: #### C MP #### [facility] [address] [place] [address] Dr. Jeffrey Thomas Platelet mean volume (Bld) [Entitic vol] 12.0 fL Normal 9.5-13.5 [facility] Comment on above: Performed By: #### C MP #### [facility] [address] [place] [address] Dr. Jeffrey Thomas PLT 199 103/ul Normal 150-450 [facility] Comment on above: Performed By: #### C MP #### [facility] [address] [place] [address] Dr. Jeffrey Thomas RBC 3.81 106/ul Critically low 4.20-5.40 [facility] Comment on above: Performed By: #### C MP #### [facility] [address] [place] [address] Dr. Jeffrey Thomas WBC 5.7 103/ul Normal 4.0-11.0 [facility] Comment on above: Performed By: #### C MP #### [facility] [address] [place] [address] Dr. Jeffrey Thomas LACTATE/LACTIC ACIDon 2022 Lactate [Moles/Vol] 0.6 mmol/L Normal 0.4-2.0 [facility] Comment on above: Performed By: #### C MP #### [facility] [address] [place] [address] Dr. Jeffrey Thomas Lactate [Moles/Vol] 2.8 mmol/L Critically high 0.4-2.0 [facility] Comment on above: Performed By: #### T 4LC #### [facility] [address] [place] [address] Dr. Jeffrey Thomas PROF 14(COMP METB)on 023 Albumin [Mass/Vol] 2.8 g/dL Critically low 3.4-5.0 [facility] Comment on above: Performed By: #### C MP #### [facility] [address] [place] [address] Dr. Jeffrey Thomas Albumin/Globulin [Mass ratio] 0.9 {ratio} Normal [facility] Comment on above: Performed By: #### C MP #### [facility] [address] [place] [address] Dr. Jeffrey Thomas ALP [Catalytic activity/Vol] 100 U/L Normal 46-116 [facility] Comment on above: Performed By: #### C MP #### [facility] [address] [place] [address] Dr. Jeffrey Thomas ALT [Catalytic activity/Vol] 102 U/L Critically high 14-59 [facility] Comment on above: Performed By: #### C MP #### [facility] [address] [place] [address] Dr. Jeffrey Thomas Anion gap [Moles/Vol] 17.0 mmol/L Normal [facility] Comment on above: Performed By: #### C MP #### [facility] [address] [place] [address] Dr. Jeffrey Thomas AST [Catalytic activity/Vol] 62 U/L Critically high 15-37 [facility] Comment on above: Performed By: #### C MP #### [facility] [address] [place] [address] Dr. Jeffrey Thomas Bilirubin [Mass/Vol] 0.3 mg/dL Normal 0.2-1.0 [facility] Comment on above: Performed By: #### C MP #### [facility] [address] [place] [address] Dr. Jeffrey Thomas Calcium [Mass/Vol] 8.1 mg/dL Critically low 8.5-10.1 [facility] Comment on above: Performed By: #### C MP #### [facility] [address] [place] [address] Dr. Jeffrey Thomas Chloride [Moles/Vol] 110 mmol/L Critically high 98-107 [facility] Comment on above: Performed By: #### C MP #### [facility] [address] [address] [address] Jeffrey Thomas CO2 [Moles/Vol] 18.6 mmol/L Critically low 21.0-32.0 [facility] Comment on above: Performed By: #### C MP #### [facility] [address] [address] [address] Jeffrey Thomas Creatinine [Mass/Vol] 1.43 mg/dL Critically high 0.55-1.02 [facility] Comment on above: Performed By: #### C MP #### [facility] [address] [address] [address] Jeffrey Thomas EGFR-AF TRISTANIAN 45 mL/min/1.73m2 Critically low >=60 [facility] Comment on above: Performed By: #### C MP #### [facility] [address] [address] [address] Jeffrey Thomas EGFR-NON AF TRISTANIAN 37 mL/min/1.73m2 Critically low >=60 [facility] Comment on above: Performed By: #### C MP #### [facility] [address] [address] [address] Jeffrey Thomas Globulin (S) [Mass/Vol] 3.0 g/dL Normal [facility] Comment on above: Performed By: #### C MP #### [facility] [address] [address] [address] Jeffrey Thomas Glucose [Mass/Vol] 141 mg/dL Critically high 74-106 [facility] [facility] Comment on above: Performed By: #### C MP #### [facility] [address] [address] [address] Jeffrey Thomas Potassium [Moles/Vol] 3.6 mmol/L Normal 3.5-5.1 [facility] Comment on above: Performed By: #### C MP #### [facility] [address] [address] [address] Jeffrey Thomas Protein [Mass/Vol] 5.8 g/dL Critically low 6.4-8.[address] [facility] Comment on above: Performed By: #### C MP #### [facility] [address] [address] [address] Jeffrey Thomas Sodium [Moles/Vol] 142 mmol/L Normal 136-145 [facility] Comment on above: Performed By: #### C MP #### [facility] [address] [place] [address] Dr. Jeffrey Thomas Urea nitrogen [Mass/Vol] 22.0 mg/dL Critically high 7.0-18.0 [facility] Comment on above: Performed By: #### C ALE #### [facility] [address] [place] [address] Dr. Jeffrey Thomas Urea nitrogen/Creatinine [Mass ratio] 15.4 mg/mg Normal [facility] Comment on above: Performed By: #### C ALE #### [facility] [address] [place] [address] Dr. Jeffrey Thomas AMYLASEon 08-26-2022 Amylase [Catalytic activity/Vol] 40 U/L Normal 25-115 [facility] Comment on above: Performed By: #### C ALE #### [facility] [address] [place] [address] Dr. Jeffrey Thomas CARDIAC CHONG ADMITon 023 CK [Catalytic activity/Vol] 39 U/L Normal 26-192 [facility] Comment on above: Performed By: #### C JUANITO AGUILERA #### [facility] [address] [place] [address] Dr. Jeffrey Thomas CK.MB [Mass/Vol] 1.47 ng/mL Normal <=3.60 [facility] Comment on above: Performed By: #### C JUANITO AGUILERA #### [facility] [address] [place] [address] Dr. Jeffrey Thomas HSTROP 7.0 pg/mL Normal 4.0-51.3 [facility] Comment on above: Result Comment: CUT- OFF POINTS HAVE BEEN ESTABLISHED BASED ON THE FOURTH UNIVERSAL DEFINITIONS OF MYOCARDIAL INFARCTION. THE UPPER REFERENCE LIMIT (URL) OF TROPONIN, DEFINED THE 99TH PERCENTILE OF cTnI DISTRIBUTION IN A REFERENCE POPULATION, HAS BEEN CONFIRMED THE DECISION THRESHOLD FOR MO DIAGNOSIS. Performed By: #### C ALE, JUANITO #### [facility] [address] [place] [address] Dr. Jeffrey Thomas SHONNA 107 ng/mL Critically high 9-82 [facility] Comment on above: Performed By: #### C JUANITO AGUILERA #### [facility] [address] [place] [address] Dr. Jeffrey Thomas CBC AUTO DIFFon 08-26-2022 BASO # 0.1 103/ul Normal 0.0-0.1 [facility] Comment on above: Performed By: #### C MP #### [facility] [address] [place] [address] Dr. Jeffrey Thomas Basophils/100 WBC (Bld) 0.9 % Normal 0.2-2.0 [facility] Comment on above: Performed By: #### C MP #### [facility] [address] [place] [address] Dr. Jeffrey Thomas EO # 0.1 103/ul Normal 0.0-0.7 [facility] Comment on above: Performed By: #### C MP #### [facility] [address] [place] [address] Dr. Jeffrey Thomas Eosinophils/100 WBC (Bld) 0.9 % Normal 0.9-7.0 [facility] Comment on above: Performed By: #### C MP #### [facility] [address] [place] [address] Dr. Jeffrey Thomas Erythrocyte distribution width (RBC) [Ratio] 14.1 % Normal 11.0-15.0 [facility] Comment on above: Performed By: #### C MP #### [facility] [address] [place] [address] Dr. Jeffrey Thomas Hematocrit (Bld) [Volume fraction] 48.3 % Critically high 36.0-48.0 [facility] Comment on above: Performed By: #### C MP #### [facility] [address] [place] [address] Dr. Jeffrey Thomas Hemoglobin (Bld) [Mass/Vol] 15.4 g/dL Normal 12.0-16.0 [facility] Comment on above: Performed By: #### C MP #### [facility] [address] [place] [address] Dr. Jeffrey Thomas IG # 0.04 10e3/ul Critically high 0.00-0.03 [facility] Comment on above: Performed By: #### C MP #### [facility] [address] [place] [address] Dr. Jeffrey Thomas IG % 0.3 % Normal 0.0-0.5 [facility] Comment on above: Performed By: #### C MP #### [facility] [address] [place] [address] Dr. Jeffrey Thomas LYMPH # 1.2 103/ul Normal 1.2-3.8 [facility] Comment on above: Performed By: #### C MP #### [facility] [address] [place] [address] Dr. Jeffrey Thomas Lymphocytes/100 WBC (Bld) 10.0 % Critically low 20.5-60.0 [facility] Comment on above: Performed By: #### C MP #### [facility] [address] [place] [address] Dr. Jeffrey Thomas MANUAL DIFF REQ NO Normal [facility] Comment on above: Performed By: #### C MP #### [facility] [address] [place] [address] Dr. Jeffrey Thomas MCH (RBC) [Entitic mass] 29.7 pg Normal 26.7-34.0 [facility] Comment on above: Performed By: #### C MP #### [facility] [address] [place] [address] Dr. Jeffrey Thomas MCHC (RBC) [Mass/Vol] 31.9 g/dL Normal 29.9-35.2 [facility] Comment on above: Performed By: #### C MP #### [facility] [address] [place] [address] Dr. Jeffrey Thomas MCV (RBC) [Entitic vol] 93.1 fL Normal 81.0-99.0 [facility] Comment on above: Performed By: #### C MP #### [facility] [address] [place] [address] Dr. Jeffrey Thomas MONO # 0.5 103/ul Normal 0.3-0.8 [facility] Comment on above: Performed By: #### C MP #### [facility] [address] [place] [address] Dr. Jeffrey Thomas Monocytes/100 WBC (Bld) 4.1 % Normal 1.7-12.0 [facility] Comment on above: Performed By: #### C MP #### [facility] [address] [place] [address] Dr. Jeffrey Thomas NEUT # 10.2 103/ul Critically high 1.4-6.5 [facility] Comment on above: Performed By: #### C MP #### [facility] [address] [place] [address] Dr. Jeffrey Thomas Neutrophils/100 WBC (Bld) 83.8 % Critically high 43.0-75.0 [facility] Comment on above: Performed By: #### C MP #### [facility] [address] [place] [address] Dr. Jeffrey Thomas Platelet mean volume (Bld) [Entitic vol] 12.2 fL Normal 9.5-13.5 [facility] Comment on above: Performed By: #### C MP #### [facility] [address] [place] [address] Dr. Jeffrey Thomas PLT 303 103/ul Normal 150-[address] [facility] Comment on above: Performed By: #### C MP #### [facility] [address] [place] [address] Dr. Jeffrey Thomas RBC 5.19 106/ul Normal 4.20-5.[address] [facility] Comment on above: Performed By: #### C MP #### [facility] [address] [place] [address] Dr. Jeffrey Thomas WBC 12.2 103/ul Critically high 4.0-11.0 [facility] Comment on above: Performed By: #### C MP #### [facility] [address] [address] ABD/PELVIS WO CONon [...] [place] Date: 2022-08-26 15:43 Normal [address] [facility] LIPASEon 08-26-2022 Lipase [Catalytic activity/Vol] 27.0 U/L Critically low 73.0-393.[address] [facility] Comment on above: Performed By: #### L ACT #### [facility] [address] [address] [address] Jeffrey Thomas PROF 14(COMP METB)on 023 Albumin [Mass/Vol] 3.7 g/dL Normal 3.4-5.0 [facility] Comment on above: Performed By: #### C MP, CMADM #### [facility] [address] [address] [address] Jeffrey Thomas Albumin/Globulin [Mass ratio] 0.9 {ratio} Normal [facility] Comment on above: Performed By: #### C MP, CMADM #### [facility] [address] [address] [address] Jeffrey Thomas ALP [Catalytic activity/Vol] 138 U/L Critically high 46-116 [facility] Comment on above: Performed By: #### C MP, CMADM #### [facility] [address] [address] [address] Jeffrey Thomas ALT [Catalytic activity/Vol] 174 U/L Critically high 14-59 [facility] Comment on above: Performed By: #### C MP, CMADM #### [facility] [address] [address] [address] Jeffrey Thomas Anion gap [Moles/Vol] 20.4 mmol/L Normal [facility] Comment on above: Performed By: #### C MP, CMADM #### [facility] [address] [address] [address] Jeffrey Thomas AST [Catalytic activity/Vol] 135 U/L Critically high 15-37 [facility] Comment on above: Performed By: #### C MP, CMADM #### [facility] [address] [address] [address] Jeffrey Thomas Bilirubin [Mass/Vol] 0.4 mg/dL Normal 0.2-1.0 [facility] Comment on above: Performed By: #### C MP, CMADM #### [facility] [address] [address] [address] Jeffrey Thomas Calcium [Mass/Vol] 9.1 mg/dL Normal 8.5-10.1 [facility] Comment on above: Performed By: #### C MP, CMADM #### [facility] [address] [address] [address] Jeffrey Thomas Chloride [Moles/Vol] 103 mmol/L Normal 98-107 [facility] Comment on above: Performed By: #### C MP, CMADM #### [facility] [address] [address] [address] Jeffrey Thomas CO2 [Moles/Vol] 18.5 mmol/L Critically low 21.0-32.0 [facility] Comment on above: Performed By: #### C MP, CMADM #### [facility] [address] [address] [address] Jeffrey Thomas Creatinine [Mass/Vol] 1.85 mg/dL Critically high 0.55-1.02 [facility] Comment on above: Performed By: #### C MP, CMADM #### [facility] [address] [address] [address] Jeffrey Thomas EGFR-AF TRISTANIAN 33 mL/min/1.73m2 Critically low >=60 [facility] Comment on above: Performed By: #### C MP, CMADM #### [facility] [address] [address] [address] Jeffrey Thomas EGFR-NON AF TRISTANIAN 27 mL/min/1.73m2 Critically low >=60 [facility] Comment on above: Performed By: #### C MP, CMADM #### [facility] [address] [place] [address] Dr. Jeffrey Thomas Globulin (S) [Mass/Vol] 4.0 g/dL Normal [facility] Comment on above: Performed By: #### C MP, CMADM #### [facility] [address] [address] [address] Jeffrey Thomas Glucose [Mass/Vol] 110 mg/dL Critically high 74-106 [facility] Comment on above: Performed By: #### C MP, CMADM #### [facility] [address] [address] [address] Jeffrey Thomas Potassium [Moles/Vol] 3.9 mmol/L Normal 3.5-5.1 [facility] Comment on above: Performed By: #### C MP, CMADM #### [facility] [address] [place] [address] Dr. Jeffrey Thomas Protein [Mass/Vol] 7.7 g/dL Normal 6.4-8.2 [facility] Comment on above: Performed By: #### C MP, CMADM #### [facility] [address] [address] [address] Jeffrey Thomas Sodium [Moles/Vol] 138 mmol/L Normal 136-145 [facility] Comment on above: Performed By: #### C ALE, CMADM #### [facility] [address] [address] [address] Jeffrey Thomas Urea nitrogen [Mass/Vol] 32.0 mg/dL Critically high 7.0-18.0 [facility] Comment on above: Performed By: #### C ALE, CMADM #### [facility] [address] [place] [address] Dr. Jeffrey Thomas Urea nitrogen/Creatinine [Mass ratio] 17.3 mg/mg Normal [facility] Comment on above: Performed By: #### C ALE, CMADM #### [facility] [address] [place] [address] Dr. Jeffrey Thomas US SINGLE QUAD RT [...] 2022-08-26 20:40 Normal [facility] CBC AUTO DIFFon 08-01-2022 BASO # 0.1 103/ul Normal 0.0-0.1 [facility] Comment on above: Performed By: #### T 4LC #### [facility] [address] [address] [address] Jeffrey Thomas Basophils/100 WBC (Bld) 1.3 % Normal 0.2-2.[address] [facility] Comment on above: Performed By: #### T 4LC #### [facility] [address] [address] [address] Jeffrey Thomas EO # 0.2 103/ul Normal 0.0-0.[address] [facility] Comment on above: Performed By: #### T 4LC #### [facility] [address] [address] [address] Jeffrey Thomas Eosinophils/100 WBC (Bld) 2.8 % Normal 0.9-7.[address] [facility] Comment on above: Performed By: #### T 4LC #### [facility] [address] [address] [address] Jeffrey Thomas Erythrocyte distribution width (RBC) [Ratio] 15.9 % Critically high 11.0-15.0 [facility] Comment on above: Performed By: #### T 4LC #### [facility] [address] [address] [address] Jeffrey Thomas Hematocrit (Bld) [Volume fraction] 37.7 % Normal 36.0-48.[address] [facility] Comment on above: Performed By: #### T 4LC #### [facility] [address] [address] [address] Jeffrey Thomas Hemoglobin (Bld) [Mass/Vol] 11.5 g/dL Critically low 12.0-16.0 [facility] Comment on above: Performed By: #### T 4LC #### [facility] [address] [place] [address] Dr. Jeffrey Thomas IG # 0.03 10e3/ul Normal 0.00-0.03 [facility] Comment on above: Performed By: #### T 4LC #### [facility] [address] [place] [address] Dr. Jeffrey Thomas IG % 0.4 % Normal 0.0-0.5 [facility] Comment on above: Performed By: #### T 4LC #### [facility] [address] [place] [address] Dr. Jeffrey Thomas LYMPH # 1.6 103/ul Normal 1.2-3.8 [facility] Comment on above: Performed By: #### T 4LC #### [facility] [address] [place] [address] Dr. Jeffrey Thomas Lymphocytes/100 WBC (Bld) 20.9 % Normal 20.5-60.0 [facility] Comment on above: Performed By: #### T 4LC #### [facility] [address] [place] [address] Dr. Jeffrey Thomas MANUAL DIFF REQ NO Normal [facility] Comment on above: Performed By: #### T 4LC #### [facility] [address] [place] [address] Dr. Jeffrey Thomas MCH (RBC) [Entitic mass] 30.0 pg Normal 26.7-34.0 [facility] Comment on above: Performed By: #### T 4LC #### [facility] [address] [place] [address] Dr. Jeffrey Thomas MCHC (RBC) [Mass/Vol] 30.5 g/dL Normal 29.9-35.2 [facility] Comment on above: Performed By: #### T 4LC #### [facility] [address] [place] [address] Dr. Jeffrey Thomas MCV (RBC) [Entitic vol] 98.4 fL Normal 81.0-99.0 [facility] Comment on above: Performed By: #### 4LC #### [facility] [address] [address] [address] Jeffrey Thomas MONO # 0.7 103/ul Normal 0.3-0.8 [facility] Comment on above: Performed By: #### 4LC #### [facility] [address] [address] [address] Jeffrey Thomas Monocytes/100 WBC (Bld) 8.7 % Normal 1.7-12.0 [facility] Comment on above: Performed By: #### 4LC #### [facility] [address] [address] [address] Jeffrey Thomas NEUT # 5.2 103/ul Normal 1.4-6.5 [facility] Comment on above: Performed By: #### 4LC #### [facility] [address] [place] [address] Dr. Jeffrey Thomas Neutrophils/100 WBC (Bld) 65.9 % Normal 43.0-75.0 [facility] Comment on above: Performed By: #### 4LC #### [facility] [address] [place] [address] Dr. Jeffrey Thomas Platelet mean volume (Bld) [Entitic vol] 11.8 fL Normal 9.5-13.5 [facility] Comment on above: Performed By: #### 4LC #### [facility] [address] [place] [address] Dr. Jeffrey Thomas PLT 265 103/ul Normal 150-[address] [facility] Comment on above: Performed By: #### 4LC #### [facility] [address] [place] [address] Dr. Jeffrey Thomas RBC 3.83 106/ul Critically low 4.20-5.40 [facility] Comment on above: Performed By: #### T 4LC #### [facility] [address] [address] [address] Jeffrey Thomas WBC 7.8 103/ul Normal 4.0-11.[address] [facility] Comment on above: Performed By: #### 4LC #### [facility] [address] [place] [address] Dr. Jeffrey Thomas CULTURE BLOODon 08-01-2022 Microscopic examination of blood, culture Culture Observations: NO GROWTH AT 5 DAYS. Normal [facility] Comment on above: Performed By: #### A MM #### [facility] [address] [place] [address] Dr. Jeffrey Thomas PROF 14(COMP METB)on 023 Albumin [Mass/Vol] 3.4 g/dL Normal 3.4-5.0 [facility] Comment on above: Performed By: #### C MP #### [facility] [address] [place] [address] Dr. Jeffrey Thomas Albumin/Globulin [Mass ratio] 0.8 {ratio} Normal [facility] Comment on above: Performed By: #### C MP #### [facility] [address] [place] [address] Dr. Jeffrey Thomas ALP [Catalytic activity/Vol] 98 U/L Normal 46-116 [facility] Comment on above: Performed By: #### C MP #### [facility] [address] [place] [address] Dr. Jeffrey Thomas ALT [Catalytic activity/Vol] 18 U/L Normal 14-59 [facility] Comment on above: Performed By: #### C MP #### [facility] [address] [place] [address] Dr. Jeffrey Thomas Anion gap [Moles/Vol] 13.3 mmol/L Normal [facility] Comment on above: Performed By: #### C MP #### [facility] [address] [place] [address] Dr. Jeffrey Thomas AST [Catalytic activity/Vol] 21 U/L Normal 15-37 [facility] Comment on above: Performed By: #### C MP #### [facility] [address] [place] [address] Dr. Jeffrey Thomas Bilirubin [Mass/Vol] 0.2 mg/dL Normal 0.2-1.0 [facility] Comment on above: Performed By: #### C MP #### [facility] [address] [address] [address] Jeffrey Thomas Calcium [Mass/Vol] 9.2 mg/dL Normal 8.5-10.1 [facility] Comment on above: Performed By: #### C MP #### [facility] [address] [address] [address] Jeffrey Thomas Chloride [Moles/Vol] 106 mmol/L Normal 98-[address] [facility] Comment on above: Performed By: #### C MP #### [facility] [address] [address] [address] Jeffrey Thomas CO2 [Moles/Vol] 23.8 mmol/L Normal 21.0-32.0 [facility] Comment on above: Performed By: #### C MP #### [facility] [address] [address] [address] Jeffrey Thomas Creatinine [Mass/Vol] 1.07 mg/dL Critically high 0.55-1.02 [facility] Comment on above: Performed By: #### C MP #### [facility] [address] [address] [address] Jeffrey Thomas EGFR-AF TRISTANIAN >60 Normal >=60 [facility] Comment on above: Performed By: #### C MP #### [facility] [address] [address] [address] Jeffrey Thomas EGFR-NON AF TRISTANIAN 51 mL/min/1.73m2 Critically low >=[address] [facility] Comment on above: Performed By: #### C MP #### [facility] [address] [address] [address] Jeffrey Thomas Globulin (S) [Mass/Vol] 4.1 g/dL Normal [facility] Comment on above: Performed By: #### C MP #### [facility] [address] [address] [address] Jeffrey Thomas Glucose [Mass/Vol] 77 mg/dL Normal 74-106 [facility] Comment on above: Performed By: #### C MP #### [facility] [address] [address] [address] Jeffrey Thomas Potassium [Moles/Vol] 5.1 mmol/L Normal 3.5-5.1 [facility] Comment on above: Performed By: #### C MP #### [facility] [address] [address] [address] Jeffrey Thomas Protein [Mass/Vol] 7.5 g/dL Normal 6.4-8.2 [facility] Comment on above: Performed By: #### C MP #### [facility] [address] [address] [address] Jeffrey Thomas Sodium [Moles/Vol] 138 mmol/L Normal 136-145 [facility] Comment on above: Performed By: #### C MP #### [facility] [address] [address] [address] Jeffrey Thomas Urea nitrogen [Mass/Vol] 36.0 mg/dL Critically high 7.0-18.0 [facility] Comment on above: Performed By: #### C MP #### [facility] [address] [address] [address] Jeffrey Thomas Urea nitrogen/Creatinine [Mass ratio] 33.6 mg/mg Normal [facility] Comment on above: Performed By: #### C MP #### [facility] [address] [address] [address] Jeffrey Thomas SED RATE WESTERGRENon 2022 SED RATE 42 mm/hr Critically high <=30 [facility] Comment on above: Performed By: #### C MP #### [facility] [address] [address] [address] Jeffrey Thomas AMMONIAon 05-23-2022 Ammonia (P) [Moles/Vol] 18 umol/L Normal 11-[address] [facility] Comment on above: Performed By: #### C MP #### [facility] [address] [address] [address] Jeffrey Thomas AMYLASEon 05-23-2022 Amylase [Catalytic activity/Vol] 30 U/L Normal 25-[address] [facility] Comment on above: Performed By: #### A MM #### [facility] [address] [place] [address] Dr. Jeffrey Thomas BNPon 05-23-2022 Natriuretic peptide B (Bld) [Mass/Vol] 1066.0 pg/mL Critically high <=900.0 [facility] Comment on above: Performed By: #### A MM #### [facility] [address] [place] [address] Dr. Jeffrey Thomas CBC AUTO DIFFon 05-23-2022 BASO # 0.1 103/ul Normal 0.0-0.1 [facility] Comment on above: Performed By: #### C MP #### [facility] [address] [place] [address] Dr. Jeffrey Thomas Basophils/100 WBC (Bld) 1.1 % Normal 0.2-2.0 [facility] Comment on above: Performed By: #### C MP #### [facility] [address] [place] [address] Dr. Jeffrey Thomas EO # 0.2 103/ul Normal 0.0-0.7 [facility] Comment on above: Performed By: #### C MP #### [facility] [address] [place] [address] Dr. Jeffrey Thomas Eosinophils/100 WBC (Bld) 3.1 % Normal 0.9-7.0 [facility] Comment on above: Performed By: #### C MP #### [facility] [address] [place] [address] Dr. Jeffrey Thomas Erythrocyte distribution width (RBC) [Ratio] 17.2 % Critically high 11.0-15.0 [facility] Comment on above: Performed By: #### C MP #### [facility] [address] [place] [address] Dr. Jeffrey Thomas Hematocrit (Bld) [Volume fraction] 33.0 % Critically low 36.0-48.0 [facility] Comment on above: Performed By: #### C MP #### [facility] [address] [place] [address] Dr. Jeffrey Thomas Hemoglobin (Bld) [Mass/Vol] 10.3 g/dL Critically low 12.0-16.0 [facility] Comment on above: Performed By: #### C MP #### [facility] [address] [place] [address] Dr. Jeffrey Thomas IG # 0.02 10e3/ul Normal 0.00-0.03 [facility] Comment on above: Performed By: #### C MP #### [facility] [address] [place] [address] Dr. Jeffrey Thomas IG % 0.3 % Normal 0.0-0.5 [facility] Comment on above: Performed By: #### C MP #### [facility] [address] [place] [address] Dr. Jeffrey Thomas LYMPH # 1.8 103/ul Normal 1.2-3.8 [facility] Comment on above: Performed By: #### C MP #### [facility] [address] [place] [address] Dr. Jeffrey Thomas Lymphocytes/100 WBC (Bld) 27.8 % Normal 20.5-60.0 [facility] Comment on above: Performed By: #### C MP #### [facility] [address] [place] [address] Dr. Jeffrey Thomas MANUAL DIFF REQ NO Normal [facility] Comment on above: Performed By: #### C MP #### [facility] [address] [place] [address] Dr. Jeffrey Thomas MCH (RBC) [Entitic mass] 28.4 pg Normal 26.7-34.0 [facility] Comment on above: Performed By: #### C MP #### [facility] [address] [place] [address] Dr. Jeffrey Thomas MCHC (RBC) [Mass/Vol] 31.2 g/dL Normal 29.9-35.2 [facility] Comment on above: Performed By: #### C MP #### [facility] [address] [place] [address] Dr. Jeffrey Thomas MCV (RBC) [Entitic vol] 90.9 fL Normal 81.0-99.0 [facility] Comment on above: Performed By: #### C MP #### [facility] [address] [address] [address] Jeffrey Thomas MONO # 0.4 103/ul Normal 0.3-0.8 [facility] Comment on above: Performed By: #### C MP #### [facility] [address] [address] [address] Jeffrey Thomas Monocytes/100 WBC (Bld) 6.7 % Normal 1.7-12.0 [facility] Comment on above: Performed By: #### C MP #### [facility] [address] [address] [address] Jeffrey Thomas NEUT # 4.0 103/ul Normal 1.4-6.5 [facility] Comment on above: Performed By: #### C MP #### [facility] [address] [place] [address] Dr. Jeffrey Thomas Neutrophils/100 WBC (Bld) 61.0 % Normal 43.0-75.[address] [facility] Comment on above: Performed By: #### C MP #### [facility] [address] [place] [address] Dr. Jeffrey Thomas Platelet mean volume (Bld) [Entitic vol] 10.4 fL Normal 9.5-13.5 [facility] Comment on above: Performed By: #### C MP #### [facility] [address] [address] [address] Jeffrey Thomas PLT 218 103/ul Normal 150-[address] [facility] Comment on above: Performed By: #### C MP #### [facility] [address] [address] [address] Jeffrey Thomas RBC 3.63 106/ul Critically low 4.20-5.40 [facility] Comment on above: Performed By: #### C MP #### [facility] [address] [address] [address] Jeffrey Thomas WBC 6.5 103/ul Normal 4.0-11.[address] [facility] Comment on above: Performed By: #### C MP #### [facility] [address] [place] [address] Dr. Jeffrey Thomas MAGNESIUMon 05-23-2022 Magnesium [Mass/Vol] 1.4 mg/dL Critically low 1.8-2.4 [facility] Comment on above: Performed By: #### A MM #### [facility] [address] [place] [address] Dr. Jeffrey Thomas PROF 14(COMP METB)on 023 Albumin [Mass/Vol] 2.8 g/dL Critically low 3.4-5.0 [facility] Comment on above: Performed By: #### A MM #### [facility] [address] [place] [address] Dr. Jeffrey Thomas Albumin/Globulin [Mass ratio] 1.0 {ratio} Normal [facility] Comment on above: Performed By: #### A MM #### [facility] [address] [place] [address] Dr. Jeffrey Thomas ALP [Catalytic activity/Vol] 113 U/L Normal 46-116 [facility] Comment on above: Performed By: #### A MM #### [facility] [address] [place] [address] Dr. Jeffrey Thomas ALT [Catalytic activity/Vol] 14 U/L Normal 14-59 [facility] Comment on above: Performed By: #### A MM #### [facility] [address] [place] [address] Dr. Jeffrey Thomas Anion gap [Moles/Vol] 15.0 mmol/L Normal [facility] Comment on above: Performed By: #### A MM #### [facility] [address] [place] [address] Dr. Jeffrey Thomas AST [Catalytic activity/Vol] 18 U/L Normal 15-37 [facility] Comment on above: Performed By: #### A MM #### [facility] [address] [place] [address] Dr. Jeffrey Thomas Bilirubin [Mass/Vol] 0.5 mg/dL Normal 0.2-1.0 [facility] Comment on above: Performed By: #### A MM #### [facility] [address] [address] [address] Jeffrey Thomas Calcium [Mass/Vol] 8.3 mg/dL Critically low 8.5-10.[address] [facility] Comment on above: Performed By: #### A MM #### [facility] [address] [address] [address] Jeffrey Thomas Chloride [Moles/Vol] 106 mmol/L Normal 98-107 [facility] Comment on above: Performed By: #### A MM #### [facility] [address] [address] [address] Jeffrey Thomas CO2 [Moles/Vol] 21.2 mmol/L Normal 21.0-32.0 [facility] Comment on above: Performed By: #### A MM #### [facility] [address] [place] [address] Dr. Jeffrey Thomas Creatinine [Mass/Vol] 1.02 mg/dL Normal 0.55-1.02 [facility] Comment on above: Performed By: #### A MM #### [facility] [address] [place] [address] Dr. Jeffrey Thomas EGFR-AF TRISTANIAN >60 Normal >=60 [facility] Comment on above: Performed By: #### A MM #### [facility] [address] [place] [address] Dr. Jeffrey Thomas EGFR-NON AF TRISTANIAN 54 mL/min/1.73m2 Critically low >=60 [facility] Comment on above: Performed By: #### A MM #### [facility] [address] [place] [address] Dr. Jeffrey Thomas Globulin (S) [Mass/Vol] 2.8 g/dL Normal [facility] Comment on above: Performed By: #### A MM #### [facility] [address] [place] [address] Dr. Jeffrey Thomas Glucose [Mass/Vol] 85 mg/dL Normal 74-106 [facility] Comment on above: Performed By: #### A MM #### [facility] [address] [place] [address] Dr. Jeffrey Thomas Potassium [Moles/Vol] 4.2 mmol/L Normal 3.5-5.1 [facility] Comment on above: Performed By: #### A MM #### [facility] [address] [place] [address] Dr. Jeffrey Thomas Protein [Mass/Vol] 5.6 g/dL Critically low 6.4-8.[address] [facility] Comment on above: Performed By: #### A MM #### [facility] [address] [place] [address] Dr. Jeffrey Thomas Sodium [Moles/Vol] 138 mmol/L Normal 136-145 [facility] Comment on above: Performed By: #### A MM #### [facility] [address] [place] [address] Dr. Jeffrey Thomas Urea nitrogen [Mass/Vol] 17.0 mg/dL Normal 7.0-18.0 [facility] Comment on above: Performed By: #### A MM #### [facility] [address] [place] [address] Dr. Jeffrey Thomas Urea nitrogen/Creatinine [Mass ratio] 16.7 mg/mg Normal [facility] Comment on above: Performed By: #### A MM #### [facility] [address] [place] [address] Dr. Jeffrey Thomas BNPon 05-22-2022 Natriuretic peptide B (Bld) [Mass/Vol] 1738.0 pg/mL Critically high <=900.0 [facility] Comment on above: Performed By: #### C MP #### [facility] [address] [place] [address] Dr. Jeffrey Thomas CBC AUTO DIFFon 05-22-2022 BASO # 0.1 103/ul Normal 0.0-0.1 [facility] Comment on above: Performed By: #### C MP #### [facility] [address] [place] [address] Dr. Jeffrey Thomas Basophils/100 WBC (Bld) 1.0 % Normal 0.2-2.0 [facility] Comment on above: Performed By: #### C MP #### [facility] [address] [place] [address] Dr. Jeffrey Thomas EO # 0.1 103/ul Normal 0.0-0.[address] [facility] Comment on above: Performed By: #### C MP #### [facility] [address] [place] [address] Dr. Jeffrey Thomas Eosinophils/100 WBC (Bld) 1.0 % Normal 0.9-7.[address] [facility] Comment on above: Performed By: #### C MP #### [facility] [address] [place] [address] Dr. Jeffrey Thomas Erythrocyte distribution width (RBC) [Ratio] 17.2 % Critically high 11.0-15.0 [facility] Comment on above: Performed By: #### C MP #### [facility] [address] [place] [address] Dr. Jeffrey Thomas Hematocrit (Bld) [Volume fraction] 36.8 % Normal 36.0-48.0 [facility] Comment on above: Performed By: #### C MP #### [facility] [address] [place] [address] Dr. Jeffrey Thomas Hemoglobin (Bld) [Mass/Vol] 11.8 g/dL Critically low 12.0-16.0 [facility] Comment on above: Performed By: #### C MP #### [facility] [address] [place] [address] Dr. Jeffrey Thomas IG # 0.01 10e3/ul Normal 0.00-0.[address] [facility] Comment on above: Performed By: #### C MP #### [facility] [address] [place] [address] Dr. Jeffrey Thomas IG % 0.2 % Normal 0.0-0.[address] [facility] Comment on above: Performed By: #### C MP #### [facility] [address] [place] [address] Dr. Jeffrey Thomas LYMPH # 1.4 103/ul Normal 1.2-3.[address] [facility] Comment on above: Performed By: #### C MP #### [facility] [address] [place] [address] Dr. Jeffrey Thomas Lymphocytes/100 WBC (Bld) 28.2 % Normal 20.5-60.[address] [facility] Comment on above: Performed By: #### C MP #### [facility] [address] [place] [address] Dr. Jeffrey Thomas MANUAL DIFF REQ NO Normal [facility] Comment on above: Performed By: #### C MP #### [facility] [address] [address] [address] Jeffrey Thomas MCH (RBC) [Entitic mass] 29.0 pg Normal 26.7-34.[address] [facility] Comment on above: Performed By: #### C MP #### [facility] [address] [place] [address] Dr. Jeffrey Thomas MCHC (RBC) [Mass/Vol] 32.1 g/dL Normal 29.9-35.[address] [facility] Comment on above: Performed By: #### C MP #### [facility] [address] [place] [address] Dr. Jeffrey Thomas MCV (RBC) [Entitic vol] 90.4 fL Normal 81.0-99.[address] [facility] Comment on above: Performed By: #### C MP #### [facility] [address] [place] [address] Dr. Jeffrey Thomas MONO # 0.4 103/ul Normal 0.3-0.[address] [facility] Comment on above: Performed By: #### C MP #### [facility] [address] [place] [address] Dr. Jeffrey Thomas Monocytes/100 WBC (Bld) 7.3 % Normal 1.7-12.[address] [facility] Comment on above: Performed By: #### C MP #### [facility] [address] [place] [address] Dr. Jeffrey Thomas NEUT # 3.0 103/ul Normal 1.4-6.[address] [facility] Comment on above: Performed By: #### C MP #### [facility] [address] [place] [address] Dr. Jeffrey Thomas Neutrophils/100 WBC (Bld) 62.3 % Normal 43.0-75.0 [facility] Comment on above: Performed By: #### C MP #### [facility] [address] [place] [address] Dr. Jeffrey Thomas Platelet mean volume (Bld) [Entitic vol] 10.4 fL Normal 9.5-13.5 [facility] Comment on above: Performed By: #### C MP #### [facility] [address] [place] [address] Dr. Jeffrey Thomas PLT 254 103/ul Normal 150-450 [facility] Comment on above: Performed By: #### C MP #### [facility] [address] [place] [address] Dr. Jeffrey Thomas RBC 4.07 106/ul Critically low 4.20-5.40 [facility] Comment on above: Performed By: #### C MP #### [facility] [address] [place] [address] Dr. Jeffrey Thomas WBC 4.8 103/ul Normal 4.0-11.0 [facility] Comment on above: Performed By: #### C MP #### [facility] [address] [place] [address] ABD/PELVIS WO CONon [...] 2022-05-22 15:45 [address] [facility] CULTURE URINEon 05-22-2022 CULTURE URINE Culture Observations : LIGHT GROWTH OF MIXED GENITAL CANDIDA. NO POTENTIAL PATHOGENS SEEN. Normal [facility] Comment on above: Performed By: #### A MM #### [facility] [address] [place] [address] Dr. Jeffrey Garciaid-19 PCR (CVDTB)on 05-04 SARS-CoV-2 (COVID-19) RNA REBECCA+probe Ql (Unsp spec) Not detected Normal NOT DETECTED [facility] Comment on above: Result Comment: When [...] for this test is supported by the [place]'s declaration that [...] #### C MP #### [facility] [address] [place] [address] Dr. Jeffrey Thomas ER URINE PROFILEon 3 Bilirubin Ql (U) Negative Normal NEGATIVE [facility] Comment on above: Performed By: #### C MP #### [facility] [address] [place] [address] Dr. Jeffrey Thomas Clarity (U) CLEAR Normal CLEAR [facility] Comment on above: Performed By: #### C MP #### [facility] [address] [place] [address] Dr. Jeffrey Thomas Color (U) YELLOW Normal YELLOW [facility] Comment on above: Performed By: #### C MP #### [facility] [address] [place] [address] Dr. Jeffrey Thomas ERUPAM A micrscopic examination will be performed if indicated. Normal [facility] Comment on above: Performed By: #### C MP #### [facility] [address] [place] [address] Dr. Jeffrey Thomas Glucose Ql (U) Negative Normal NEGATIVE [facility] Comment on above: Performed By: #### C MP #### [facility] [address] [place] [address] Dr. Jeffrey Thomas Hemoglobin Ql (U) Negative Normal NEGATIVE [facility] Comment on above: Performed By: #### C MP #### [facility] [address] [place] [address] Dr. Jeffrey Thomas Ketones Ql (U) Negative Normal NEGATIVE [facility] Comment on above: Performed By: #### C MP #### [facility] [address] [place] [address] Dr. Jeffrey Thomas LEUKOCYTES Negative Normal NEGATIVE [facility] Comment on above: Performed By: #### C MP #### [facility] [address] [place] [address] Dr. Jeffrey Thomas Nitrite Ql (U) Negative Normal NEGATIVE [facility] Comment on above: Performed By: #### C MP #### [facility] [address] [place] [address] Dr. Jeffrey Thomas pH (U) 5.0 [pH] Normal 5-9 [facility] Comment on above: Performed By: #### C MP #### [facility] [address] [place] [address] Dr. Jeffrey Thomas SPEC GRAVITY 1.020 Normal 1.005-<=1.02 5 [facility] Comment on above: Performed By: #### C MP #### [facility] [address] [place] [address] Dr. Jeffrey Thomas UA PROTEIN Negative Normal NEGATIVE/ TRACE [facility] Comment on above: Performed By: #### C MP #### [facility] [address] [place] [address] Dr. Jeffrey Thomas UR MICRO IND NOT INDICATED Normal [facility] Comment on above: Performed By: #### C MP #### [facility] [address] [place] [address] Dr. Jeffrey Thomas Urobilinogen Qn (U) 0.2 {Bere'U}/dL Normal 0.2 - 1. [address] [facility] Comment on above: Performed By: #### C MP #### [facility] [address] [place] [address] Dr. Jeffrey Thomas INFLUENZA A AND B AGon 05-22 INFLUANEGH SEE BELOW Normal [facility] Comment on above: Result Comment: Nega tive for Flu A protein angiten. Infection due to Flu A cannot be ruled out. Flu A angiten in the sample may be below the detection limit of the test. Performed By: #### C MP #### [facility] [address] [place] [address] Dr. Jeffrey Thomas INFLUBNEGH SEE BELOW Normal [facility] Comment on above: Result Comment: Nega tive for Flu B protein antigen. Infection due to Flu B cannot be ruled out. Flu B antigen in the sample may be below the detection limit of the test. Performed By: #### C MP #### [facility] [address] [place] [address] Dr. Jeffrey Thomas INFLUENZA A AG Negative Normal NEGATIVE SEE COMMENT [facility] Comment on above: Performed By: #### C MP #### [facility] [address] [place] [address] Dr. Jeffrey Thomas INFLUENZA B AG Negative Normal NEGATIVE SEE COMMENT [facility] Comment on above: Performed By: #### C MP #### [facility] [address] [place] [address] Dr. Jeffrey Thomas LACTATE/LACTIC ACIDon 2022 Lactate [Moles/Vol] 1.4 mmol/L Normal 0.4-1.9 [facility] Comment on above: Performed By: #### L ACT #### [facility] [address] [place] [address] Dr. Jeffrey Thomas Lactate [Moles/Vol] 1.1 mmol/L Normal 0.4-1.9 [facility] Comment on above: Performed By: #### T 4LC #### [facility] [address] [place] [address] Dr. Jeffrey Thomas LIPASEon 05-22-2022 Lipase [Catalytic activity/Vol] 21.0 U/L Critically low 73.0-393.0 [facility] Comment on above: Performed By: #### C MP #### [facility] [address] [place] [address] Dr. Jeffrey Thomas PROF 14(COMP METB)on 023 Albumin [Mass/Vol] 3.2 g/dL Critically low 3.4-5.0 [facility] Comment on above: Performed By: #### C MP #### [facility] [address] [place] [address] Dr. Jeffrey Thomas Albumin/Globulin [Mass ratio] 1.0 {ratio} Normal [facility] Comment on above: Performed By: #### C MP #### [facility] [address] [place] [address] Dr. Jeffrey Thomas ALP [Catalytic activity/Vol] 133 U/L Critically high 46-116 [facility] Comment on above: Performed By: #### C MP #### [facility] [address] [place] [address] Dr. Jeffrey Thomas ALT [Catalytic activity/Vol] 14 U/L Normal 14-59 [facility] Comment on above: Performed By: #### C MP #### [facility] [address] [place] [address] Dr. Jeffrey Thomas Anion gap [Moles/Vol] 17.3 mmol/L Normal [facility] Comment on above: Performed By: #### C MP #### [facility] [address] [place] [address] Dr. Jeffrey Thomas AST [Catalytic activity/Vol] 18 U/L Normal 15-37 [facility] Comment on above: Performed By: #### C MP #### [facility] [address] [place] [address] Dr. Jeffrey Thomas Bilirubin [Mass/Vol] 0.5 mg/dL Normal 0.2-1.0 [facility] Comment on above: Performed By: #### C MP #### [facility] [address] [place] [address] Dr. Jeffrey Thomas Calcium [Mass/Vol] 9.0 mg/dL Normal 8.5-10.1 [facility] Comment on above: Performed By: #### C MP #### [facility] [address] [address] [address] Jeffrey Thomas Chloride [Moles/Vol] 107 mmol/L Normal 98-107 [facility] Comment on above: Performed By: #### C MP #### [facility] [address] [address] [address] Jeffrey Thomas CO2 [Moles/Vol] 20.0 mmol/L Critically low 21.0-32.0 [facility] Comment on above: Performed By: #### C MP #### [facility] [address] [address] [address] Jeffrey Thomas Creatinine [Mass/Vol] 1.05 mg/dL Critically high 0.55-1.02 [facility] Comment on above: Performed By: #### C MP #### [facility] [address] [place] [address] Dr. Jeffrey Thomas EGFR-AF TRISTANIAN >60 Normal >=60 [facility] Comment on above: Performed By: #### C MP #### [facility] [address] [address] [address] Jeffrey Thomas EGFR-NON AF TRISTANIAN 53 mL/min/1.73m2 Critically low >=60 [facility] Comment on above: Performed By: #### C MP #### [facility] [address] [address] [address] Jeffrey Thomas Globulin (S) [Mass/Vol] 3.1 g/dL Normal [facility] Comment on above: Performed By: #### C MP #### [facility] [facility] [address] [address] [address] Jeffrey Thomas Glucose [Mass/Vol] 117 mg/dL Critically high 74-106 [facility] Comment on above: Performed By: #### C MP #### [facility] [address] [address] [address] Jeffrey Thomas Potassium [Moles/Vol] 4.3 mmol/L Normal 3.5-5.1 [facility] Comment on above: Performed By: #### C MP #### [facility] [address] [address] [address] Jeffrey Thomas Protein [Mass/Vol] 6.3 g/dL Critically low 6.4-8.[address] [facility] Comment on above: Performed By: #### C MP #### [facility] [address] [address] [address] Jeffrey Thomas Sodium [Moles/Vol] 140 mmol/L Normal 136-145 [facility] Comment on above: Performed By: #### C MP #### [facility] [address] [address] [address] Jeffrey Thomas Urea nitrogen [Mass/Vol] 20.0 mg/dL Critically high 7.0-18.0 [facility] Comment on above: Performed By: #### C MP #### [facility] [address] [place] [address] Dr. Jeffrey Thomas Urea nitrogen/Creatinine [Mass ratio] 19.0 mg/mg Normal [facility] Comment on above: Performed By: #### C MP #### [facility] [address] [place] [address] Dr. Jeffrey Thomas PROTIMEon 05-22-2022 INR Coag (PPP) [Relative time] 0.99 {INR} Normal [facility] Comment on above: Performed By: #### C MP #### [facility] [address] [place] [address] Dr. Jeffrey Thomas INR GUIDELINES SEE BELOW Normal [facility] Comment on above: Result Comment: MERARI RED INR: 2.0 - 3.0 CONDITIONS NOT LISTED BELOW 2.5 - 3.5 FOR PROSTHETIC HEART VALVE REPLACEMENT 2.5 - 3.5 RECURRENT THROMBOSIS Performed By: #### C MP #### [facility] [address] [place] [address] Dr. Jeffrey Thomas PT Coag (PPP) [Time] 10.5 s Normal 9.0-11.6 [facility] Comment on above: Performed By: #### C MP #### [facility] [address] [place] [address] Dr. Jeffrey Thomas PTTon 05-22-2022 aPTT Coag (Bld) [Time] 25.9 s Normal 22.3-36.2 [facility] Comment on above: Performed By: #### C MP #### [facility] [address] [address] [address] Jeffrey Thomas TROPONIN, HIGH SENSITIVITYon 05-22-2022 HSTROP 6.1 pg/mL Normal 4.0-51.3 [facility] Comment on above: Result Comment: CUT- OFF POINTS HAVE BEEN ESTABLISHED BASED ON THE FOURTH UNIVERSAL DEFINITIONS OF MYOCARDIAL INFARCTION. THE UPPER REFERENCE LIMIT (URL) OF TROPONIN, DEFINED THE 99TH PERCENTILE OF cTnI DISTRIBUTION IN A REFERENCE POPULATION, HAS BEEN CONFIRMED THE DECISION THRESHOLD FOR MO DIAGNOSIS. Performed By: #### C MP #### [facility] [address] [address] [address] Jeffrey Thomas US SINGLE QUAD RT [...] ABDIAS WEN Date: 2022-05-22 17:32 [address] [facility] XR CHEST 1 Von 05-22-2022 [...] MELLY SEO Date: 2022-05-22 15:32 Normal [address] [facility] PT Coag (PPP) [Time]on 05-04 INR Coag (PPP) [Relative time] 1.7 {INR} Normal <=5.0 [facility] Comment on above: Result Comment: The recommended therapeutic INR range for most cardiac indications is 2.0-3.0 For high intensity therapy (i.e. mechanical heart valves), the recommended range is 2.5-3.5 Performed By: #### 5 902-2 #### [facility] [address] [place] [address] Prothrombin timeon 3 PT Coag (PPP) [Time] 18.8 s High 11.9-14.7 [facility] Comment on above: Performed By: #### 5 902-2 #### [facility] [address] [place] [address] Basic metabolic 2000 panelon 05-03-2022 Anion gap [Moles/Vol] 8 mmol/L Normal 6-18 [facility] Comment on above: Performed By: #### 2 4321-2 #### [facility] [address] [place] [address] Calcium [Mass/Vol] 8.6 mg/dL Low 8.9-10.3 [facility] Comment on above: Performed By: #### 2 1-2 #### [facility] [place] [facility] [address] [place] [address] Chloride [Moles/Vol] 109 mmol/L High 98-107 [facility] Comment on above: Performed By: #### 2 4321-2 #### [facility] [place] [facility] [address] [place] [address] CO2 [Moles/Vol] 25 mmol/L Normal 22-32 [facility] Comment on above: Performed By: #### 2 4321-2 #### [facility] [place] [address] [place] [address] Creatinine [Mass/Vol] 1.07 mg/dL Normal 0.60-1.30 [facility] Comment on above: Performed By: #### 2 4321-2 #### [facility] [place] [facility] [address] [place] [address] GFR/1.73 sq M.predicted among non-blacks MDRD (S/P/Bld) [Vol rate/Area] 58 mL/min/{1.73_m2} Low >=60 [facility] Comment on above: Result Comment: Effe ctive January 08, 2022, calculation based on the?Chronic Kidney Disease Epidemiology Collaboration (CKD-EPI) equation refit?without adjustment for race. Performed By: #### 2 4321-2 #### [facility] [place] [address] [place] [address] Glucose [Mass/Vol] 78 mg/dL Normal 70-99 [facility] Comment on above: Performed By: #### 2 4321-2 #### [facility] [place] [facility] [address] [place] [address] Potassium [Moles/Vol] 5.1 mmol/L Normal 3.6-5.1 [facility] Comment on above: Performed By: #### 2 4321-2 #### [facility] [place] [address] [place] [address] Sodium [Moles/Vol] 142 mmol/L Normal 136-145 [facility] Comment on above: Performed By: #### 2 4321-2 #### [facility] [place] [address] [place] [address] Urea nitrogen [Mass/Vol] 35 mg/dL High 8-20 [facility] Comment on above: Performed By: #### 2 4321-2 #### [facility] [place] [address] [place] [address] Urea nitrogen/Creatinine [Mass ratio] 32.7 mg/mg High 12.0-20.0 [facility] Comment on above: Performed By: #### 2 4321-2 #### [facility] [place] [address] [place] [address] Hemogram and platelets WO di fferential panel (Bld)on 05-03-2022 Erythrocyte distribution width (RBC) [Ratio] 16.4 % High 11.0-14.8 [facility] Comment on above: Performed By: #### 2 4321-2 #### [facility] [place] [address] [place] [address] Hematocrit (Bld) [Volume fraction] 33.4 % Low 34.3-47.9 [facility] Comment on above: Performed By: #### 2 4321-2 #### [facility] [place] [address] [place] [address] Hemoglobin (Bld) [Mass/Vol] 10.0 g/dL Low 12.0-16.0 [facility] Comment on above: Performed By: #### 2 4321-2 #### [facility] [place] [address] [place] [address] MCH 27.2 pcg Normal 27.0-34.0 [facility] Comment on above: Performed By: #### 2 4321-2 #### [facility] [place] [address] [place] [address] MCHC (RBC) [Mass/Vol] 29.9 g/dL Low 30.8-35.3 [facility] Comment on above: Performed By: #### 2 4321-2 #### [facility] [place] [address] [place] [address] MCV (RBC) [Entitic vol] 91.0 fL Normal 80.0-97.0 [facility] Comment on above: Performed By: #### 2 4321-2 #### [facility] [place] [address] [place] [address] Platelet mean volume (Bld) [Entitic vol] 11.6 fL Normal 6.2-12.1 [facility] Comment on above: Performed By: #### 2 4321-2 #### [facility] [place] [address] [place] [address] Platelets (Bld) [#/Vol] 283 10*3/uL Normal 142-424 [facility] Comment on above: Performed By: #### 2 4321-2 #### [facility] [place] [address] [place] [address] RBC (Bld) [#/Vol] 3.67 10*6/uL Low 3.74-5.34 [facility] Comment on above: Performed By: #### 2 4321-2 #### [facility] [place] [address] [place] [address] WBC (Bld) [#/Vol] 5.5 10*3/uL Normal 4.6-10.2 [facility] Comment on above: Performed By: #### 2 4321-2 #### [facility] [place] [address] [place] [address] PT Coag (PPP) [Time]on 05-03 INR Coag (PPP) [Relative time] 1.6 {INR} Normal <=5.0 [facility] Comment on above: Result Comment: The recommended therapeutic INR range for most cardiac indications is 2.0-3.0 For high intensity therapy (i.e. mechanical heart valves), the recommended range is 2.5-3.5 Performed By: #### 5 902-2 #### [facility] [place] [address] [place] [address] Prothrombin timeon 3 PT Coag (PPP) [Time] 17.7 s High 11.9-14.7 [facility] Comment on above: Performed By: #### 5 902-2 #### [facility] [place] [address] [place] [address] Nuclear IgG IA Ql (S)on 04-04 Bacteria identified Cx Nom (U) 1 ORGANISM 202 Abnormal >466222 CFU/mL Escherichia coli The organism value for [...] Islt <=20 ug/ml Susceptible Invalid Interpretation Code [facility] Comment on above: Performed By: #### 2 4321-2 #### [facility] [address] [place] [address] Bacteria, Urine Many Abnormal None [facility] Comment on above: Performed By: #### 2 4321-2 #### [facility] [address] [place] [address] Bilirubin, Urine Negative Normal Negative [facility] Comment on above: Performed By: #### 2 4321-2 #### [facility] [place] [address] [place] [address] Blood, Urine 3+ Abnormal Negative [facility] Comment on above: Performed By: #### 2 4321-2 #### [facility] [place] [address] [place] [address] Clarity (U) Slightly Cloudy Abnormal Clear [facility] Comment on above: Performed By: #### 2 4321-2 #### [facility] [place] [facility] [address] [place] [address] Color (U) Renata Abnormal Yellow [facility] Comment on above: Performed By: #### 2 4321-2 #### [facility] [place] [address] [place] [address] Glucose Ql (U) Normal Normal Normal [facility] Comment on above: Performed By: #### 2 1-2 #### [facility] [place] [facility] [address] [place] [address] Ketones Ql (U) Negative Normal Negative [facility] Comment on above: Performed By: #### 2 1-2 #### [facility] [place] [facility] [address] [place] [address] Leukocytes, Urine 250 WBCs/mcL Abnormal Negative [facility] Comment on above: Performed By: #### 2 4321-2 #### [facility] [place] [facility] [address] [place] [address] Mucus, UA Rare Abnormal None [facility] Comment on above: Performed By: #### 2 4321-2 #### [facility] [place] [facility] [address] [place] [address] Nitrite, Urine Negative Normal Negative [facility] Comment on above: Performed By: #### 2 1-2 #### [facility] [place] [address] [place] [address] pH (U) 6.0 [pH] Normal 5.0-8.0 [facility] Comment on above: Performed By: #### 2 4321-2 #### [facility] [address] [place] [address] Protein (U) [Mass/Vol] 30 mg/dL Abnormal Negative [facility] Comment on above: Performed By: #### 2 4321-2 #### [facility] [address] [place] [address] RBC LM.HPF (Urine sed) [#/Area] 362 /[HPF] High 0-5 [facility] Comment on above: Performed By: #### 2 4321-2 #### [facility] [address] [place] [address] Specific [place] Urine 1.012 Normal 1.002-1.030 [facility] Comment on above: Performed By: #### 2 4321-2 #### [facility] [address] [place] [address] Squamous Epithelial, Urine Rare Abnormal None [facility] Comment on above: Performed By: #### 2 4321-2 #### [facility] [address] [place] [address] Urobilinogen, Urine Normal Normal Normal [facility] Comment on above: Performed By: #### 2 4321-2 #### [facility] [address] [place] [address]76 WBC LM.HPF (Urine sed) [#/Area] 47 /[HPF] High 0-5 [facility] Comment on above: Performed By: #### 2 4321-2 #### [facility] [address] [place] [address] PT Coag (PPP) [Time]on 05-02 INR Coag (PPP) [Relative time] 1.4 {INR} Normal <=5.0 [facility] Comment on above: Result Comment: The recommended therapeutic INR range for most cardiac indications is 2.0-3.0 For high intensity therapy (i.e. mechanical heart valves), the recommended range is 2.5-3.5 Performed By: #### 5 902-2 #### [facility] [place] [facility] [address] [place] [address] Prothrombin timeon 3 PT Coag (PPP) [Time] 15.9 s High 11.9-14.7 [facility] Comment on above: Performed By: #### 5 902-2 #### [facility] [place] [address] [place] [address] Basic metabolic 2000 panelon 05-01-2022 Anion gap [Moles/Vol] 8 mmol/L Normal 6-18 [facility] Comment on above: Performed By: #### 5 902-2 #### [facility] [place] [address] [place] [address] Calcium [Mass/Vol] 8.6 mg/dL Low 8.9-10.3 [facility] Comment on above: Performed By: #### 5 902-2 #### [facility] [place] [address] [place] [address] Chloride [Moles/Vol] 108 mmol/L High 98-107 [facility] Comment on above: Performed By: #### 5 902-2 #### [facility] [place] [address] [place] [address] CO2 [Moles/Vol] 25 mmol/L Normal 22-32 [facility] Comment on above: Performed By: #### 5 902-2 #### [facility] [place] [address] [place] [address] Creatinine [Mass/Vol] 0.97 mg/dL Normal 0.60-1.30 [facility] Comment on above: Performed By: #### 5 902-2 #### [facility] [place] [address] [place] [address] GFR/1.73 sq M.predicted among non-blacks MDRD (S/P/Bld) [Vol rate/Area] 65 mL/min/{1.73_m2} Normal >=60 [facility] Comment on above: Result Comment: Effe ctive January 08, 2022, calculation based on the?Chronic Kidney Disease Epidemiology Collaboration (CKD-EPI) equation refit?without adjustment for race. Performed By: #### 5 902-2 #### [facility] [place] [address] [place] [address] Glucose [Mass/Vol] 82 mg/dL Normal 70-99 [facility] Comment on above: Performed By: #### 5 902-2 #### [facility] [place] [address] [place] [address] Potassium [Moles/Vol] 4.5 mmol/L Normal 3.6-5.1 [facility] Comment on above: Performed By: #### 5 902-2 #### [facility] [place] [facility] [address] [place] [address] Sodium [Moles/Vol] 141 mmol/L Normal 136-145 [facility] Comment on above: Performed By: #### 5 902-2 #### [facility] [place] [facility] [address] [place] [address] Urea nitrogen [Mass/Vol] 34 mg/dL High 8-20 [facility] Comment on above: Performed By: #### 5 902-2 #### [facility] [place] [facility] [address] [place] [address] Urea nitrogen/Creatinine [Mass ratio] 35.1 mg/mg High 12.0-20.0 [facility] Comment on above: Performed By: #### 5 902-2 #### [facility] [place] [facility] [address] [place] [address] Hemogram and platelets WO di fferential panel (Bld)on 05-01-2022 Erythrocyte distribution width (RBC) [Ratio] 16.5 % High 11.0-14.8 [facility] Comment on above: Performed By: #### 2 1-2 #### [facility] [place] [facility] [address] [place] [address] Hematocrit (Bld) [Volume fraction] 33.7 % Low 34.3-47.9 [facility] Comment on above: Performed By: #### 2 4321-2 #### [facility] [place] [facility] [address] [place] [address] Hemoglobin (Bld) [Mass/Vol] 10.3 g/dL Low 12.0-16.0 [facility] Comment on above: Performed By: #### 2 1-2 #### [facility] [place] [facility] [address] [place] [address]879 MCH 28.1 pcg Normal 27.0-34.0 [facility] Comment on above: Performed By: #### 2 4320-2 #### [facility] [place] [facility] [address] [place] [address]45 MCHC (RBC) [Mass/Vol] 30.6 g/dL Low 30.8-35.3 [facility] Comment on above: Performed By: #### 2 1-2 #### [facility] [place] [facility] [address] [place] [address] MCV (RBC) [Entitic vol] 92.1 fL Normal 80.0-97.0 [facility] Comment on above: Performed By: #### 2 1-2 #### [facility] [place] [facility] [address] [place] [address]231 Platelet mean volume (Bld) [Entitic vol] 11.6 fL Normal 6.2-12.1 [facility] Comment on above: Performed By: #### 2 1-2 #### [facility] [place] [facility] [address] [place] [address] Platelets (Bld) [#/Vol] 275 10*3/uL Normal 142-424 [facility] Comment on above: Performed By: #### 2 1-2 #### [facility] [place] [facility] [address] [place] [address] RBC (Bld) [#/Vol] 3.66 10*6/uL Low 3.74-5.34 [facility] Comment on above: Performed By: #### 2 4321-2 #### [facility] [place] [facility] [address] [place] [address]144 WBC (Bld) [#/Vol] 5.9 10*3/uL Normal 4.6-10.2 [facility] Comment on above: Performed By: #### 2 4321-2 #### [facility] [address] [place] [address]279 PT Coag (PPP) [Time]on 05-01 INR Coag (PPP) [Relative time] 1.3 {INR} Normal <=5.0 [facility] Comment on above: Result Comment: The recommended therapeutic INR range for most cardiac indications is 2.0-3.0 For high intensity therapy (i.e. mechanical heart valves), the recommended range is 2.5-3.5 Performed By: #### 2 4321-2 #### [facility] [address] [place] [address]207 Prothrombin timeon PT Coag (PPP) [Time] 15.6 s High 11.9-14.7 [facility] Comment on above: Performed By: #### 2 4321-2 #### [facility] [address] [place] [address] 90755 PT Coag (PPP) [Time]on 04-30 INR Coag (PPP) [Relative time] 1.4 {INR} Normal <=5.0 [facility] Comment on above: Result Comment: The recommended therapeutic INR range for most cardiac indications is 2.0-3.0 For high intensity therapy (i.e. mechanical heart valves), the recommended range is 2.5-3.5 Performed By: #### 5 902-2 #### [facility] [address] [place] [address]17 Prothrombin timeon PT Coag (PPP) [Time] 16.0 s High 11.9-14.7 [facility] Comment on above: Performed By: #### 5 902-2 #### [facility] [place] [facility] [address] [place] [address]81 Basic metabolic 2000 panelon 04-29-2022 Anion gap [Moles/Vol] 6 mmol/L Normal 6-18 [facility] Comment on above: Performed By: #### 5 902-2 #### [facility] [place] [facility] [address] [place] [address]293 Calcium [Mass/Vol] 8.7 mg/dL Low 8.9-10.3 [facility] Comment on above: Performed By: #### 5 902-2 #### [facility] [place] [facility] [address] [place] [address]36 Chloride [Moles/Vol] 103 mmol/L Normal 98-107 [facility] Comment on above: Performed By: #### 5 902-2 #### [facility] [place] [facility] [address] [place] [address] 85925 CO2 [Moles/Vol] 28 mmol/L Normal 22-32 [facility] Comment on above: Performed By: #### 5 902-2 #### [facility] [place] [facility] [address] [place] [address]161 Creatinine [Mass/Vol] 1.14 mg/dL Normal 0.60-1.30 [facility] Comment on above: Performed By: #### 5 902-2 #### [facility] [place] [facility] [address] [place] [address] 41118 GFR/1.73 sq M.predicted among non-blacks MDRD (S/P/Bld) [Vol rate/Area] 54 mL/min/{1.73_m2} Low >=60 [facility] Comment on above: Result Comment: Effe ctive January 08, 2022, calculation based on the?Chronic Kidney Disease Epidemiology Collaboration (CKD-EPI) equation refit?without adjustment for race. Performed By: #### 5 902-2 #### [facility] LAB [address] [place] [address] 72250 Glucose [Mass/Vol] 90 mg/dL Normal 70-99 [facility] Comment on above: Performed By: #### 5 902-2 #### [facility] [place] ([facility] LAB [address] [place] [address] 33251 Potassium [Moles/Vol] 4.8 mmol/L Normal 3.6-5.1 [facility] Comment on above: Performed By: #### 5 902-2 #### [facility] LAB [address] [place] [address] 50163 Sodium [Moles/Vol] 137 mmol/L Normal 136-145 [facility] Comment on above: Performed By: #### 5 902-2 #### [facility] LAB [address] [place] [address] 82458 Urea nitrogen [Mass/Vol] 35 mg/dL High 8-20 [facility] Comment on above: Performed By: #### 5 902-2 #### [facility] LAB [address] [place] [address] 89918 Urea nitrogen/Creatinine [Mass ratio] 30.7 mg/mg High 12.0-20.0 [facility] Comment on above: Performed By: #### 5 902-2 #### [facility] LAB [address] [place] [address] 34011 PT Coag (PPP) [Time]on 04-29 INR Coag (PPP) [Relative time] 1.4 {INR} Normal <=5.0 [facility] Comment on above: Result Comment: The recommended therapeutic INR range for most cardiac indications is 2.0-3.0 For high intensity therapy (i.e. mechanical heart valves), the recommended range is 2.5-3.5 Performed By: #### 5 902-2 #### [facility] ([facility]) LAB [address] [place] [address] Prothrombin timeon 3 PT Coag (PPP) [Time] 16.5 s High 11.9-14.7 [facility] Comment on above: Performed By: #### 5 902-2 #### [facility] [place] [facility] [address] [place] [address] 91030 PT Coag (PPP) [Time]on 04-28 INR Coag (PPP) [Relative time] 1.3 {INR} Normal <=5.0 [facility] Comment on above: Result Comment: The recommended therapeutic INR range for most cardiac indications is 2.0-3.0 For high intensity therapy (i.e. mechanical heart valves), the recommended range is 2.5-3.5 Performed By: #### 5 902-2 #### [facility] [place] [facility] LAB [address] [place] [address] 26214 Prothrombin timeon 3 PT Coag (PPP) [Time] 15.6 s High 11.9-14.7 [facility] Comment on above: Performed By: #### 5 902-2 #### [facility] [place] [facility] LAB [address] [place] [address] 59592 Basic metabolic 2000 panelon 04-27-2022 Anion gap [Moles/Vol] 10 mmol/L Normal 6-18 [facility] Comment on above: Performed By: #### 2 4321-2 #### [facility] [place] [facility] LAB [address] [place] [address] 63272 Calcium [Mass/Vol] 8.4 mg/dL Low 8.9-10.3 [facility] Comment on above: Performed By: #### 2 4321-2 #### [facility] [place] [facility] LAB [address] [place] [address] 35912 Chloride [Moles/Vol] 105 mmol/L Normal 98-107 [facility] Comment on above: Performed By: #### 2 4321-2 #### [facility] [place] ([facility] [address] [place] [address] CO2 [Moles/Vol] 22 mmol/L Normal 22-32 [facility] Comment on above: Performed By: #### 2 4321-2 #### [facility] [place] [facility] [address] [place] [address] Creatinine [Mass/Vol] 1.12 mg/dL Normal 0.60-1.30 [facility] Comment on above: Performed By: #### 2 4321-2 #### [facility] [place] [facility] [address] [place] [address] GFR/1.73 sq M.predicted among non-blacks MDRD (S/P/Bld) [Vol rate/Area] 55 mL/min/{1.73_m2} Low >=60 [facility] Comment on above: Result Comment: Effe ctive January 08, 2022, calculation based on the?Chronic Kidney Disease Epidemiology Collaboration (CKD-EPI) equation refit?without adjustment for race. Performed By: #### 2 4321-2 #### [facility] [place] [facility] [address] [place] [address] Glucose [Mass/Vol] 82 mg/dL Normal 70-99 [facility] Comment on above: Performed By: #### 2 4321-2 #### [facility] [place] [facility] [address] [place] [address] Potassium [Moles/Vol] 5.6 mmol/L High 3.6-5.1 [facility] Comment on above: Performed By: #### 2 4321-2 #### [facility] [place] [facility] [address] [place] [address] Sodium [Moles/Vol] 137 mmol/L Normal 136-145 [facility] Comment on above: Performed By: #### 2 4321-2 #### [facility] [place] [facility] [address] [place] [address] Urea nitrogen [Mass/Vol] 35 mg/dL High 8-20 [facility] Comment on above: Performed By: #### 2 4321-2 #### [facility] ([facility]) LAB [address] [place] [address] 15906 Urea nitrogen/Creatinine [Mass ratio] 31.3 mg/mg High 12.0-20.0 [facility] Comment on above: Performed By: #### 2 4321-2 #### [facility] ([facility]) LAB [address] [place] [address] 05009 PT Coag (PPP) [Time]on 04-27 INR Coag (PPP) [Relative time] 1.2 {INR} Normal <=5.0 [facility] Comment on above: Result Comment: The recommended therapeutic INR range for most cardiac indications is 2.0-3.0 For high intensity therapy (i.e. mechanical heart valves), the recommended range is 2.5-3.5 Performed By: #### 5 902-2 #### [facility] ([facility]) LAB [address] [place] [address] 01733 Prothrombin timeon 3 PT Coag (PPP) [Time] 14.5 s Normal 11.9-14.7 [facility] Comment on above: Performed By: #### 5 902-2 #### [facility] ([facility]) LAB [address] [place] [address] 58334 PT Coag (PPP) [Time]on 04-26 INR Coag (PPP) [Relative time] 1.2 {INR} Normal <=5.0 [facility] Comment on above: Result Comment: The recommended therapeutic INR range for most cardiac indications is 2.0-3.0 For high intensity therapy (i.e. mechanical heart valves), the recommended range is 2.5-3.5 Performed By: #### 2 4321-2 #### [facility] ([facility]) LAB [address] [place] [address] 39940 Prothrombin timeon 3 PT Coag (PPP) [Time] 14.3 s Normal 11.9-14.7 [facility] Comment on above: Performed By: #### 2 4321-2 #### [facility] [place] ([facility] [address] [place] [address] Basic metabolic 2000 panelon 04-25-2022 Anion gap [Moles/Vol] 7 mmol/L Normal 6-18 [facility] Comment on above: Performed By: #### 2 4321-2 #### [facility] [place] ([facility] [address] [place] [address] 53363 Calcium [Mass/Vol] 8.5 mg/dL Low 8.9-10.3 [facility] Comment on above: Performed By: #### 2 4321-2 #### [facility] [place] ([facility] [address] [place] [address] 15348 Chloride [Moles/Vol] 104 mmol/L Normal 98-107 [facility] Comment on above: Performed By: #### 2 4321-2 #### [facility] [place] [facility] [address] [place] [address] 02687 CO2 [Moles/Vol] 30 mmol/L Normal 22-32 [facility] Comment on above: Performed By: #### 2 4321-2 #### [facility] [place] ([facility] [address] [place] [address] 04347 Creatinine [Mass/Vol] 1.00 mg/dL Normal 0.60-1.30 [facility] Comment on above: Performed By: #### 2 4321-2 #### [facility] [place] [facility] [address] [place] [address] 59758 GFR/1.73 sq M.predicted among non-blacks MDRD (S/P/Bld) [Vol rate/Area] 63 mL/min/{1.73_m2} Normal >=60 [facility] Comment on above: Result Comment: Effe ctive January 08, 2022, calculation based on the?Chronic Kidney Disease Epidemiology Collaboration (CKD-EPI) equation refit?without adjustment for race. Performed By: #### 2 4321-2 #### [facility] [place] [facility] [address] [place] [address] 33676 Glucose [Mass/Vol] 89 mg/dL Normal 70-99 [facility] Comment on above: Performed By: #### 2 4321-2 #### [facility] [place] [facility] LAB [address] [place] [address] Potassium [Moles/Vol] 5.2 mmol/L High 3.6-5.1 [facility] Comment on above: Performed By: #### 2 4321-2 #### [facility] [place] [facility] LAB [address] [place] [address] 37669 Sodium [Moles/Vol] 141 mmol/L Normal 136-145 [facility] Comment on above: Performed By: #### 2 4321-2 #### [facility] ([facility]) LAB [address] [place] [address] 69789 Urea nitrogen [Mass/Vol] 25 mg/dL High 8-20 [facility] Comment on above: Performed By: #### 2 4321-2 #### [facility] LAB [address] [place] [address] 57465 Urea nitrogen/Creatinine [Mass ratio] 25.0 mg/mg High 12.0-20.0 [facility] Comment on above: Performed By: #### 2 4321-2 #### [facility] [place] [facility]) LAB [address] [place] [address] 27030 PT Coag (PPP) [Time]on 04-25 INR Coag (PPP) [Relative time] 1.2 {INR} Normal <=5.0 [facility] Comment on above: Result Comment: The recommended therapeutic INR range for most cardiac indications is 2.0-3.0 For high intensity therapy (i.e. mechanical heart valves), the recommended range is 2.5-3.5 Performed By: #### 5 902-2 #### [facility] [place] [facility] LAB [address] [place] [address] 37887 Prothrombin timeon PT Coag (PPP) [Time] 14.0 s Normal 11.9-14.7 [facility] Comment on above: Performed By: #### 5 902-2 #### [facility] [place] [facility] [address] [place] [address] Basic metabolic 2000 panelon 04-24-2022 Anion gap [Moles/Vol] 7 mmol/L Normal 6-18 [facility] Comment on above: Performed By: #### 2 4321-2 #### [facility] [place] [facility] [address] [place] [address] 30032 Calcium [Mass/Vol] 8.7 mg/dL Low 8.9-10.3 [facility] Comment on above: Performed By: #### 2 4321-2 #### [facility] [place] [facility] [address] [place] [address] 39906 Chloride [Moles/Vol] 106 mmol/L Normal 98-107 [facility] Comment on above: Performed By: #### 2 4321-2 #### [facility] [place] [facility] [address] [place] [address] 55708 CO2 [Moles/Vol] 28 mmol/L Normal 22-32 [facility] Comment on above: Performed By: #### 2 4321-2 #### [facility] [place] [facility] [address] [place] [address] 80618 Creatinine [Mass/Vol] 1.14 mg/dL Normal 0.60-1.30 [facility] Comment on above: Performed By: #### 2 4321-2 #### [facility] [place] [facility] [address] [place] [address] 62008 GFR/1.73 sq M.predicted among non-blacks MDRD (S/P/Bld) [Vol rate/Area] 54 mL/min/{1.73_m2} Low >=60 [facility] Comment on above: Result Comment: Effe ctive January 08, 2022, calculation based on the?Chronic Kidney Disease Epidemiology Collaboration (CKD-EPI) equation refit?without adjustment for race. Performed By: #### 2 4321-2 #### [facility] ([facility]) [facility] [address] [place] [address] Glucose [Mass/Vol] 95 mg/dL Normal 70-99 [facility] Comment on above: Performed By: #### 2 4321-2 #### [facility] [place] [facility] [address] [place] [address] Potassium [Moles/Vol] 5.3 mmol/L High 3.6-5.1 [facility] Comment on above: Performed By: #### 2 4321-2 #### [facility] [place] [facility] [address] [place] [address] 66398 Sodium [Moles/Vol] 141 mmol/L Normal 136-145 [facility] Comment on above: Performed By: #### 2 4321-2 #### [facility] [place] [facility] [address] [place] [address] 97565 Urea nitrogen [Mass/Vol] 25 mg/dL High 8-20 [facility] Comment on above: Performed By: #### 2 4321-2 #### [facility] [place] [facility] [address] [place] [address] 58897 Urea nitrogen/Creatinine [Mass ratio] 21.9 mg/mg High 12.0-20.0 [facility] Comment on above: Performed By: #### 2 4321-2 #### [facility] [place] [facility] [address] [place] [address] 99331 Hemogram and platelets WO di fferential panel (Bld)on 04-24-2022 Erythrocyte distribution width (RBC) [Ratio] 16.9 % High 11.0-14.8 [facility] Comment on above: Performed By: #### 2 4317-0 #### [facility] [place] [facility] [address] [place] [address] 44109 Hematocrit (Bld) [Volume fraction] 35.3 % Normal 34.3-47.9 [facility] Comment on above: Performed By: #### 2 4317-0 #### [facility] [place] [facility] [address] [place] [address] 61143 Hemoglobin (Bld) [Mass/Vol] 10.9 g/dL Low 12.0-16.0 [facility] Comment on above: Performed By: #### 2 4317-0 #### [facility] [place] [facility] [address] [place] [address] 95691 Immature Platelet Fraction 14.0 % High 1.4-10.8 [facility] Comment on above: Performed By: #### 2 4317-0 #### [facility] [place] [facility] [address] [place] [address] 96041 MCH 28.9 pcg Normal 27.0-34.0 [facility] Comment on above: Performed By: #### 2 4317-0 #### [facility] [place] [facility] [address] [place] [address] 79693 MCHC (RBC) [Mass/Vol] 30.9 g/dL Normal 30.8-35.3 [facility] Comment on above: Performed By: #### 2 4317-0 #### [facility] [place] [facility] [address] [place] [address] 44768 MCV (RBC) [Entitic vol] 93.6 fL Normal 80.0-97.0 [facility] Comment on above: Performed By: #### 2 4317-0 #### [facility] [place] [facility] [address] [place] [address] 29924 Platelet mean volume (Bld) [Entitic vol] 12.9 fL High 6.2-12.1 [facility] Comment on above: Performed By: #### 2 4317-0 #### [facility] [place] [facility] [address] [place] [address] 80272 Platelets (Bld) [#/Vol] 160 10*3/uL Normal 142-424 [facility] Comment on above: Performed By: #### 2 4317-0 #### [facility] [place] [facility] [address] [place] [address] 47924 RBC (Bld) [#/Vol] 3.77 10*6/uL Normal 3.74-5.34 [facility] Comment on above: Performed By: #### 2 4317-0 #### [facility] [place] [facility] [address] [place] [address] 55415 WBC (Bld) [#/Vol] 7.7 10*3/uL Normal 4.6-10.2 [facility] Comment on above: Performed By: #### 2 4317-0 #### [facility] [place] [facility] [address] [place] [address] 06795 PT Coag (PPP) [Time]on 04-24 INR Coag (PPP) [Relative time] 1.1 {INR} Normal <=5.0 [facility] Comment on above: Result Comment: The recommended therapeutic INR range for most cardiac indications is 2.0-3.0 For high intensity therapy (i.e. mechanical heart valves), the recommended range is 2.5-3.5 Performed By: #### 2 4321-2 #### [facility] LAB [address] [place] [address] 02462 Prothrombin timeon PT Coag (PPP) [Time] 13.9 s Normal 11.9-14.7 [facility] Comment on above: Performed By: #### 2 4321-2 #### [facility] [address] [place] [address] 26755 Basic metabolic 2000 panelon 04-23-2022 Anion gap [Moles/Vol] 8 mmol/L Normal 6-18 [facility] Comment on above: Performed By: #### 2 4321-2 #### [facility] [address] [place] [address] 84581 Calcium [Mass/Vol] 8.5 mg/dL Low 8.9-10.3 [facility] Comment on above: Performed By: #### 2 4321-2 #### [facility] [address] [place] [address] 12623 Chloride [Moles/Vol] 106 mmol/L Normal 98-107 [facility] Comment on above: Performed By: #### 2 4321-2 #### [facility] [place] [facility] [address] [place] [address] 31308 CO2 [Moles/Vol] 28 mmol/L Normal 22-32 [facility] Comment on above: Performed By: #### 2 4321-2 #### [facility] [place] [facility] [address] [place] [address] 25788 Creatinine [Mass/Vol] 1.01 mg/dL Normal 0.60-1.30 [facility] Comment on above: Performed By: #### 2 4321-2 #### [facility] [place] [facility] [address] [place] [address] 87024 GFR/1.73 sq M.predicted among non-blacks MDRD (S/P/Bld) [Vol rate/Area] 62 mL/min/{1.73_m2} Normal >=60 [facility] Comment on above: Result Comment: Effe ctive January 08, 2022, calculation based on the?Chronic Kidney Disease Epidemiology Collaboration (CKD-EPI) equation refit?without adjustment for race. Performed By: #### 2 4321-2 #### [facility] [place] [facility] [address] [place] [address] 40247 Glucose [Mass/Vol] 108 mg/dL High 70-99 [facility] Comment on above: Performed By: #### 2 4321-2 #### [facility] [place] [facility] [address] [place] [address] 69994 Potassium [Moles/Vol] 5.0 mmol/L Normal 3.6-5.1 [facility] Comment on above: Performed By: #### 2 4321-2 #### [facility] [place] [facility] [address] [place] [address] 23304 Sodium [Moles/Vol] 142 mmol/L Normal 136-145 [facility] Comment on above: Performed By: #### 2 4321-2 #### [facility] [place] [facility] [address] [place] [address] 58281 Urea nitrogen [Mass/Vol] 23 mg/dL High 8-20 [facility] Comment on above: Performed By: #### 2 4321-2 #### [facility] ([facility]) LAB [address] [place] [address] 88338 Urea nitrogen/Creatinine [Mass ratio] 22.8 mg/mg High 12.0-20.0 [facility] Comment on above: Performed By: #### 2 4321-2 #### [facility] ([facility]) LAB [address] [place] [address] 54684 Hemogram and platelets WO di fferential panel (Bld)on 04-23-2022 Basophils (Bld) [#/Vol] 0.06 10*3/uL Normal 0.00-0.20 [facility] Comment on above: Performed By: #### 2 4321-2 #### [facility] ([facility]) LAB [address] [place] [address] 59757 Basophils/100 WBC (Bld) 0.7 % Normal 0.0-2.0 [facility] Comment on above: Performed By: #### 2 4321-2 #### [facility] ([facility]) LAB [address] [place] [address] 71009 Eosinophils (Bld) [#/Vol] 0.17 10*3/uL Normal 0.00-0.70 [facility] Comment on above: Performed By: #### 2 4321-2 #### [facility] ([facility]) LAB [address] [place] [address] 50460 Eosinophils/100 WBC (Bld) 2.1 % Normal 0.0-7.0 [facility] Comment on above: Performed By: #### 2 4321-2 #### [facility] ([facility]) LAB [address] [place] [address] 65896 Erythrocyte distribution width (RBC) [Ratio] 17.0 % High 11.0-14.8 [facility] Comment on above: Performed By: #### 2 4321-2 #### [facility] [address] [place] [address] 59778 Hematocrit (Bld) [Volume fraction] 34.1 % Low 34.3-47.9 [facility] Comment on above: Performed By: #### 2 4321-2 #### [facility] [place] [facility] [address] [place] [address] 41989 Hemoglobin (Bld) [Mass/Vol] 10.4 g/dL Low 12.0-16.0 [facility] Comment on above: Performed By: #### 2 1-2 #### [facility] [place] [facility] [address] [place] [address] 75426 Immature granulocytes (Bld) [#/Vol] 0.02 10*3/uL Normal 0.00-0.10 [facility] Comment on above: Performed By: #### 2 1-2 #### [facility] [address] [place] [id number] Immature granulocytes/100 WBC (Bld) 0.2 % Normal 0.0-1.2 [facility] Comment on above: Performed By: #### 2 1-2 #### [facility] ([facility]) LAB [address] [place] [id number] Lymphocytes (Bld) [#/Vol] 2.24 10*3/uL Normal 1.00-4.80 [facility] Comment on above: Performed By: #### 2 1-2 #### [facility] [place] [facility] LAB [address] [place] [id number] Lymphocytes/100 WBC (Bld) 27.4 % Normal 17.9-49.6 [facility] Comment on above: Performed By: #### 2 1-2 #### [facility] LAB [address] [place] [id number] MCH 28.4 pcg Normal 27.0-34.0 [facility] Comment on above: Performed By: #### 2 4321-2 #### [facility] ([facility]) LAB [address] [place] [address] MCHC (RBC) [Mass/Vol] 30.5 g/dL Low 30.8-35.3 Arin [facility] Comment on above: Performed By: #### 2 4321-2 #### [facility] [place] ([facility]) LAB [address] [place] [address]24 MCV (RBC) [Entitic vol] 93.2 fL Normal 80.0-97.0 [facility] Comment on above: Performed By: #### 2 4321-2 #### [facility] [place] [facility] [address] [place] [address] 93277 Monocytes (Bld) [#/Vol] 0.98 10*3/uL High 0.00-0.90 [facility] Comment on above: Performed By: #### 2 4321-2 #### [facility] [place] [address] [place] [address] 12744 Monocytes/100 WBC (Bld) 12.0 % Normal 0.0-12.0 [facility] Comment on above: Performed By: #### 2 4321-2 #### [facility] [place] [address] [place] [address] 88566 Neutrophils Absolute 4.71 K/mcL Normal 1.80-7.70 Moun [facility] Comment on above: Performed By: #### 2 4321-2 #### [facility] [place] [address] [place] [address]403 Neutrophils/100 WBC (Bld) 57.6 % Normal 38.1-75.5 [facility] Comment on above: Performed By: #### 2 4321-2 #### [facility] [place] [address] [place] [address] 17824 Platelet mean volume (Bld) [Entitic vol] 13.0 fL High 6.2-12.1 [facility] Comment on above: Performed By: #### 2 4321-2 #### [facility] [place] [address] [place] [address] 37844 Platelets (Bld) [#/Vol] 175 10*3/uL Normal 142-424 [facility] Comment on above: Performed By: #### 2 4321-2 #### [facility] [place] LAB [address] [place] [address] RBC (Bld) [#/Vol] 3.66 10*6/uL Low 3.74-5.34 [facility] Comment on above: Performed By: #### 2 4321-2 #### [facility] [place] [address] [place] [address] WBC (Bld) [#/Vol] 8.2 10*3/uL Normal 4.6-10.2 [facility] Comment on above: Performed By: #### 2 4321-2 #### [facility] [address] [place] [address] PT Coag (PPP) [Time]on 04-23 INR Coag (PPP) [Relative time] 1.1 {INR} Normal <=5.0 [facility] Comment on above: Result Comment: The recommended therapeutic INR range for most cardiac indications is 2.0-3.0 For high intensity therapy (i.e. mechanical heart valves), the recommended range is 2.5-3.5 Performed By: #### 2 4321-2 #### [facility] [address] [place] [address] Prothrombin timeon 3 PT Coag (PPP) [Time] 13.4 s Normal 11.9-14.7 Moun [facility] Comment on above: Performed By: #### 2 4321-2 #### [facility] [address] [place] [address] Basic metabolic 2000 panelon 04-22-2022 Anion gap [Moles/Vol] 6 mmol/L Normal 6-18 Arin [facility] Comment on above: Performed By: #### 1 988-5 #### [facility] [address] [place] [address] Calcium [Mass/Vol] 8.3 mg/dL Low 8.9-10.3 [facility] Comment on above: Performed By: #### 1 988-5 #### [facility] [address] [place] [address] Chloride [Moles/Vol] 107 mmol/L Normal 98-107 Moun [facility] Comment on above: Performed By: #### 1 988-5 #### [facility] [address] [place] [address] CO2 [Moles/Vol] 25 mmol/L Normal 22-[address] [facility] Comment on above: Performed By: #### 1 988-5 #### [facility] [address] [place] [address] Creatinine [Mass/Vol] 1.06 mg/dL Normal 0.60-1.30 Arin [facility] Comment on above: Performed By: #### 1 988-5 #### [facility] [address] [place] [address] GFR/1.73 sq M.predicted among non-blacks MDRD (S/P/Bld) [Vol rate/Area] 59 mL/min/{1.73_m2} Low >=60 [facility] Comment on above: Result Comment: Effe ctive January 08, 2022, calculation based on the?Chronic Kidney Disease Epidemiology Collaboration (CKD-EPI) equation refit?without adjustment for race. Performed By: #### 1 988-5 #### [facility] [address] [place] [address] Glucose [Mass/Vol] 104 mg/dL High 70-99 [facility] Comment on above: Performed By: #### 1 988-5 #### [facility] [address] [place] [address] Potassium [Moles/Vol] 4.7 mmol/L Normal 3.6-5.1 Arin [facility] Comment on above: Performed By: #### 1 988-5 #### [facility] [address] [place] [address] Sodium [Moles/Vol] 138 mmol/L Normal 136-145 [facility] Comment on above: Performed By: #### 1 988-5 #### [facility] [address] [facility] [place] [address] Urea nitrogen [Mass/Vol] 24 mg/dL High 8-20 [facility] Comment on above: Performed By: #### 1 988-5 #### [facility] [address] [place] [address] Urea nitrogen/Creatinine [Mass ratio] 22.6 mg/mg High 12.0-20.0 [facility] Comment on above: Performed By: #### 1 988-5 #### [facility] [address] [place] [address] Anion gap [Moles/Vol] 6 mmol/L 6 - 18 [facility] Calcium [Mass/Vol] 8.3 mg/dL Low 8.9 - 10. 3 mg/dL [facility] Chloride [Moles/Vol] 107 mmol/L 98 - 10 7 mmol/L [facility] CO2 [Moles/Vol] 25 mmol/L 22 - 32 mmol/L [facility] Creatinine [Mass/Vol] 1.06 mg/dL 0.60 - 1.30 mg/dL [facility] GFR/1.73 sq M.predicted among non-blacks MDRD (S/P/Bld) [Vol rate/Area] 59 mL/min/{1.73_m2} Low - PINF [facility] Comment on above: Effective January 08, 2022, calculation based on the Chronic Kidney Disease Epidemiology Collaboration (CKD-EPI) equation refit without adjustment for race. Glucose [Mass/Vol] 104 mg/dL High 70 - 99 mg/dL [facility] Interpretation and review of laboratory results Abnormal [facility] Potassium [Moles/Vol] 4.7 mmol/L 3.6 - 5.1 mmol/L [facility] Sodium [Moles/Vol] 138 mmol/L 136 - 145 mmol/L [facility] Urea nitrogen [Mass/Vol] 24 mg/dL High 8 - 20 mg/dL [facility] Urea nitrogen/Creatinine [Mass ratio] 22.6 mg/mg High 12.0 - 20.0 [facility] Hemogram and platelets WO di fferential panel (Bld)on 04-22-2022 Erythrocyte distribution width (RBC) [Ratio] 16.4 % High 11.0-14.8 [facility] Comment on above: Performed By: #### 1 988-5 #### [facility] [address] [place] [address] Hematocrit (Bld) [Volume fraction] 35.8 % Normal 34.3-47.9 [facility] Comment on above: Performed By: #### 1 988-5 #### [facility] [address] [place] [address] Hemoglobin (Bld) [Mass/Vol] 10.9 g/dL Low 12.0-16.0 [facility] Comment on above: Performed By: #### 1 988-5 #### [facility] [address] [place] [address] 59613 MCH 28.2 pcg Normal 27.0-34.0 [facility] Comment on above: Performed By: #### 1 988-5 #### [facility] [address] [place] [address] MCHC (RBC) [Mass/Vol] 30.4 g/dL Low 30.8-35.3 Arin [facility] Comment on above: Performed By: #### 1 988-5 #### [facility] [address] [place] [address] 13385 MCV (RBC) [Entitic vol] 92.5 fL Normal 80.0-97.0 [facility] Comment on above: Performed By: #### 1 988-5 #### [facility] [address] [place] [address] 26772 Platelet mean volume (Bld) [Entitic vol] 12.4 fL High 6.2-12.1 [facility] Comment on above: Performed By: #### 1 988-5 #### [facility] [address] [place] [address] 28910 Platelets (Bld) [#/Vol] 158 10*3/uL Normal 142-424 [facility] Comment on above: Performed By: #### 1 988-5 #### [facility] [address] [place] [address] 96213 RBC (Bld) [#/Vol] 3.87 10*6/uL Normal 3.74-5.34 [facility] Comment on above: Performed By: #### 1 988-5 #### [facility] [address] [place] [address] 37140 WBC (Bld) [#/Vol] 9.0 10*3/uL Normal 4.6-10.2 [facility] Comment on above: Performed By: #### 1 988-5 #### [facility] [address] [place] [address] 13137 Erythrocyte distribution width (RBC) [Ratio] 16.4 % High 11.0 - 14.8 % [facility] Hematocrit (Bld) [Volume fraction] 35.8 % 34.3 - 47.9 % [facility] Hemoglobin (Bld) [Mass/Vol] 10.9 g/dL Low 12.0 - 16.0 g/dL [facility] Interpretation and review of laboratory results Abnormal [facility] MCH (RBC) [Entitic mass] 28.2 pg [facility] MCHC (RBC) [Mass/Vol] 30.4 g/dL Low 30.8 - 35.3 g/dL [facility] MCV (RBC) [Entitic vol] 92.5 fL [facility] Platelet mean volume (Bld) [Entitic vol] 12.4 fL High [facility] th Platelets (Bld) [#/Vol] 158 10*3/uL [facility] RBC (Bld) [#/Vol] 3.87 10*6/uL [facility] ty [facility] WBC (Bld) [#/Vol] 9.0 10*3/uL [facility] PT Coag (PPP) [Time]on 04-22 INR Coag (PPP) [Relative time] 0.9 {INR} Normal <=5.0 [facility] Comment on above: Result Comment: The recommended therapeutic INR range for most cardiac indications is 2.0-3.0 For high intensity therapy (i.e. mechanical heart valves), the recommended range is 2.5-3.5 Performed By: #### 1 988-5 #### [facility] [address] [place] [address] 07027 INR Coag (PPP) [Relative time] 0.9 {INR} NINF - 5.0 [facility] Comment on above: The recommended ther apeutic INR range for most cardiac indications is 2.0-3.0 For high intensity therapy (i.e. mechanical heart valves), the recommended range is 2.5-3.5 Interpretation and review of laboratory results Normal [facility] PT Coag (Bld) [Time] 12.6 s [facility] Prothrombin timeon 3 PT Coag (PPP) [Time] 12.6 s Normal 11.9-14.7 Moun t [facility] Comment on above: Performed By: #### 1 988-5 #### [facility] [address] [place] [address] SARS-CoV-2 (COVID-19) RNA NA A+probe Ql (Resp)on 04-22-2022 Interpretation and review of laboratory results Normal [facility] SARS-CoV-2 (COVID-19) RdRp gene REBECCA+probe Ql (Resp) Not detected Not Detected [facility] SARS-CoV-2 RNA Resp Ql REBECCA+p robeon 04-22-2022 SARS-CoV-2 (COVID-19) RNA REBECCA+probe Ql (Resp) Not detected Normal Not Detected [facility] Comment on above: Performed By: #### 5 75-1 #### [facility] [address] [place] [address] Basic metabolic 2000 panelon 04-21-2022 Anion gap [Moles/Vol] 9 mmol/L Normal 6-18 Arin nt [facility] Comment on above: Performed By: #### 1 988-5 #### [facility] [address] [place] [address] Calcium [Mass/Vol] 8.2 mg/dL Low 8.9-10.3 [facility] Comment on above: Performed By: #### 1 988-5 #### [facility] [address] [place] [address] Chloride [Moles/Vol] 108 mmol/L High 98-107 Moun [facility] Comment on above: Performed By: #### 1 988-5 #### [facility] [address] [facility] [place] [address] CO2 [Moles/Vol] 22 mmol/L Normal 22-[address] [facility] Comment on above: Performed By: #### 1 988-5 #### [facility] [address] [place] [address] Creatinine [Mass/Vol] 1.19 mg/dL Normal 0.60-1.30 Arin [facility] Comment on above: Performed By: #### 1 988-5 #### [facility] [address] [place] [address] GFR/1.73 sq M.predicted among non-blacks MDRD (S/P/Bld) [Vol rate/Area] 51 mL/min/{1.73_m2} Low >=60 [facility] Comment on above: Result Comment: Effsayda ctive January 08, 2022, calculation based on the?Chronic Kidney Disease Epidemiology Collaboration (CKD-EPI) equation refit?without adjustment for race. Performed By: #### 1 988-5 #### [facility] [address] [place] [address] Glucose [Mass/Vol] 135 mg/dL High 70-99 [facility] Comment on above: Performed By: #### 1 988-5 #### [facility] [address] [place] [address] Potassium [Moles/Vol] 4.6 mmol/L Normal 3.6-5.1 Arin [facility] Comment on above: Performed By: #### 1 988-5 #### [facility] [address] [facility] [place] [address] Sodium [Moles/Vol] 139 mmol/L Normal 136-145 [facility] Comment on above: Performed By: #### 1 988-5 #### [facility] [address] [place] [address] Urea nitrogen [Mass/Vol] 19 mg/dL Normal 8-20 [facility] Comment on above: Performed By: #### 1 988-5 #### [facility] [address] [facility] [place] [address] Urea nitrogen/Creatinine [Mass ratio] 16.0 mg/mg Normal 12.0-20.0 [facility] Comment on above: Performed By: #### 1 988-5 #### [facility] [address] [facility] [place] [address] Anion gap [Moles/Vol] 9 mmol/L 6 - 18 [facility] Calcium [Mass/Vol] 8.2 mg/dL Low 8.9 - 10. 3 mg/dL [facility] Chloride [Moles/Vol] 108 mmol/L High 98 - 10 7 mmol/L [facility] CO2 [Moles/Vol] 22 mmol/L 22 - 32 mmol/L [facility] Creatinine [Mass/Vol] 1.19 mg/dL 0.60 - 1.30 mg/dL [facility] GFR/1.73 sq M.predicted among non-blacks MDRD (S/P/Bld) [Vol rate/Area] 51 mL/min/{1.73_m2} Low - PINF [facility] Comment on above: Effective January 08, 2022, calculation based on the Chronic Kidney Disease Epidemiology Collaboration (CKD-EPI) equation refit without adjustment for race. Glucose [Mass/Vol] 135 mg/dL High 70 - 99 mg/dL [facility] Interpretation and review of laboratory results Abnormal [facility] Potassium [Moles/Vol] 4.6 mmol/L 3.6 - 5.1 mmol/L [facility] Sodium [Moles/Vol] 139 mmol/L 136 - 145 mmol/L [facility] Urea nitrogen [Mass/Vol] 19 mg/dL 8 - 20 mg/dL [facility] Urea nitrogen/Creatinine [Mass ratio] 16.0 mg/mg 12.0 - 20.0 [facility] Hemogram and platelets WO di fferential panel (Bld)on 04-21-2022 Erythrocyte distribution width (RBC) [Ratio] 15.9 % High 11.0-14.8 [facility] Comment on above: Performed By: #### 1 988-5 #### [facility] [address] [place] [address] Hematocrit (Bld) [Volume fraction] 37.0 % Normal 34.3-47.9 [facility] Comment on above: Performed By: #### 1 988-5 #### [facility] [address] [place] [address] Hemoglobin (Bld) [Mass/Vol] 11.6 g/dL Low 12.0-16.0 [facility] Comment on above: Performed By: #### 1 988-5 #### [facility] [address] [place] [address] MCH 28.2 pcg Normal 27.0-34.0 [facility] Comment on above: Performed By: #### 1 988-5 #### [facility] [address] [place] [address] MCHC (RBC) [Mass/Vol] 31.4 g/dL Normal 30.8-35.3 Arin [facility] Comment on above: Performed By: #### 1 988-5 #### [facility] [address] [place] [address] MCV (RBC) [Entitic vol] 90.0 fL Normal 80.0-97.0 [facility] Comment on above: Performed By: #### 1 988-5 #### [facility] [address] [place] [address] Platelet mean volume (Bld) [Entitic vol] 12.3 fL High 6.2-12.1 [facility] Comment on above: Performed By: #### 1 988-5 #### [facility] [address] [place] [address] Platelets (Bld) [#/Vol] 220 10*3/uL Normal 142-424 [facility] Comment on above: Performed By: #### 1 988-5 #### [facility] [address] [place] [address] RBC (Bld) [#/Vol] 4.11 10*6/uL Normal 3.74-5.34 [facility] Comment on above: Performed By: #### 1 988-5 #### [facility] [address] [place] [address] WBC (Bld) [#/Vol] 13.5 10*3/uL High 4.6-10.2 [facility] Comment on above: Performed By: #### 1 988-5 #### [facility] [address] [place] [address] Erythrocyte distribution width (RBC) [Ratio] 15.9 % High 11.0 - 14.8 % [facility] Hematocrit (Bld) [Volume fraction] 37.0 % 34.3 - 47.9 % [facility] Hemoglobin (Bld) [Mass/Vol] 11.6 g/dL Low 12.0 - 16.0 g/dL [facility] Interpretation and review of laboratory results Abnormal [facility] MCH (RBC) [Entitic mass] 28.2 pg [facility] MCHC (RBC) [Mass/Vol] 31.4 g/dL 30.8 - 35.3 g/dL [facility] MCV (RBC) [Entitic vol] 90.0 fL [facility] Platelet mean volume (Bld) [Entitic vol] 12.3 fL High [facility] th Platelets (Bld) [#/Vol] 220 10*3/uL [facility] RBC (Bld) [#/Vol] 4.11 10*6/uL [facility] WBC (Bld) [#/Vol] 13.5 10*3/uL High [facility] Pathology studyOrdered By: Valerie Segura on 04-21-2022 Citation Rick (Reference lab test) l4hqaPMqQDNwyTTuIKAaI KqnfzMyYSAzoUNaJ3Edly gxNIcvEN4fRC9xsSleoLM pgBHhDOIeIfNqt5igl792 eTZli6cnLZWBhoegdAc4c 2jfVQKXHRymGQWQBRd4rE yfU40py5S5JsquG7wwOWG fYIexszAlaxM1TFNvsHVh SSg2OIYcbNEafbIyXyTkZ JTccAAijTX3UBHgKD6nbd cnJJqlDKusCCEumtQ4AAY xxSKgG9VvWAJvHK3rhgng DPL8NXtvXDMrREU9DnIzB EJyw7Pbeqv9GwXemEEkHN xwbGFpblxpXGYxXGZzMTh cP9ErKROaERH1DSChpplg QKvsV03cnY9hVP42KJfex oJiGQRzb0HiOGQmORTxOT xiQPEmmfSnNWyubZ0hc2j 8ZVauKx5zAAIqdjdlZTH0 AeBaFR71KtkmcAJpVGINr mUsIENvbHVtYnVzLCBPaG khTDCtCkW6OsCPpNYof3X ta1GfQcVeyQPhsW1mdDiv wkQ4AGTxvWHtWx4uvFZvB lxwYXJ9 [employer] Work Phone: Microscopic description Rick (Endomyocardium) h8ymfFKsJZIkpOQOMRLyB BFpQU1txHsiyZf5zCwaWL AkxcM2pSGnLQgbl6iyCKS 7q7jfvbPFMoxyJGWrJD1d PRvyPMKgDW8jWjQuBJCfL mYyXHBhcGVydzEyMjQwXH KyrJDxkZI4SMRcZJ3hqhr zLTloGKcsBGXqieG1VWHn iXLsJ6AzYJUxRO4ofmcfC VC5HTQDOalqZr4zdAXskE ANCntcZjFcZmNoYXJzZXQ uZYBbnYfqFMBgSVd1lJ7A t4epMffiY0irkcTlcFYpL p3rmZMUZAduLPVDTOu6jK 0YADPlN3FeWU3Wj2esGEE ygXDfBUT5DEqqw5pqTIqv ODN1UCSzOCUzUZHmHS0AA xGwFWWkPkK3CuQ2WyJ8ES o1RLWRBWJxMXw0FhsqRTy 8LMi1IKqauwrpJGf4SNFc OFnkqVWgJX6cqLlqMuzmk Avgw5VffTAuOIKuHTlvaF QgNTEwMDIgXFxkYiBPVlI tYsLrGJq8YJobWLZuYDz0 KTsrS2YNBWPrYXR2VuUvS SQoLiB5EJr3BZTJXy2wTn V3NpXwOVM6RlR8WGUsESQ cXHQgMiBcXHNzIDMgXFxm mUGzFT0ysBziJXZdLZ7FA HBsYWluXGYxXGZzMjAgQS 3kJ26eWUvoFGLiaUkbDzB sOIIizKFurSHutBSly9F7 aKCjZOb0iSBoh8S8mJxmK GluZmlsdHJhdGVzOlxwYX IgDQpccGFyZCANClxwbGF pblxmMVxmczIwXHBsYWlu XWz8ncEdOCNxAvWqPGQoK 27gg0YZk5LzFQ7QFIs7vt JudrwubS6qTBZnhaKuVNs cZjFcZnMyMCBSZWNlaXZl OASscsNzi4YsLTnfwvZjE JAloURuZHcfvLfydQR3yF LuwKSoWX8tSUUuMZLeOUZ 8kJQxo6C9MGOnacu6ADSl iLehczZhqG3laG2tlVZdR yBpbmZpbHRyYXRlcywgbG VmdCBrbmVlIiBpcyBhIDM lU90aHBdekmQzNWUxNF5z EYT5i0s3QJLfyd3sycU7V LUiEhNmA5FwjLcePPmfjb 59yxW1lRWovLLqDZLZtXW io1GlR7yqWL1btSBvqhLh vpYqHH09LHRnxxXquTNal GJegZC2EOHutB7xNhyvJ8 sgQTEuXHBhciANClxwYXI sNPctv8XsGShtjEumAWFg XgKaBEtrlta9ZR9MEECnO FxlcGljWHNhMCANClxlcG zlNvLqjXWtElG6JZZvvDW hRCG7UZ7wbWgtNSSiK9Du S7NaxbX4UQKcndNXVkpkG vtyzbApPA1GnL== [employer] Phone: Pathology report final diagnosis Narrative v7aiyKKdJUOijYRoTESwQ RzqnkRcZWDxjJBkV7Oytb cjWVgbSE2cSU5jxMlchAX ntDZzIPWzYgXwu7oba075 eMRes9fmLXQAwrhfzUc5p GdiV97kp7Q2YckuI5qaDG QwXGdyZWVuMFxibHVlMDt 9XHBhcGVydzEyMjQwXHBh aFFixWZ7YDMdUO8izcikL KzgHCsnKBGvgyY9WPCgbM DoV6JnHKLfVR6hscwkHIW 1FAiqOXWmPBB9WmSqYMRj f6Wirbn3UnItuIa0v6icB OIaYGNrnXxrm1kmRIE7OI YlnRDrM7dotC1mPCKhGW8 vbtyol3ysWZuqJPiiPKJm kVC3zzN5LUIskXIeH0Tln G2nWQGxBCStteMavWfkNp Z4EIinkQYbqzqvZbCiY95 viVO3pRVgcYRyOFmnCtUt X9pdYPPuvdptrJLbWKRoP NCUmCmbWP8dwbXqJERqMf xiPRwbYrdkiW1smQzyum7 ccGFyICAgLSBOZWdhdGl2 JVMim9Nmc8mauiqlhUPqc xYtxBQymXXjk0A8fGLtWG a0yFMef4H2kGuvBNviPkb vsM4bzViwrh7pbBDfqU== [employer] Phone: [employer] Phone: Bacteria Spec Anaerobe Culto n 04-20-2022 Bacteria identified Anaer cx Nom (Unsp spec) Culture, Anaerobic Status = F No anaerobes grown after 4 days. Normal [facility] Comment on above: Performed By: #### 3 4556-1 #### [facility] [address] [place] [id number] Performed By: #### 5 75-1 #### [facility] [address] [place] [address] Bacteria identified Anaer cx Nom (Unsp spec) Culture, Anaerobic Status = F No anaerobes grown after 4 days. Normal [facility] Comment on above: Performed By: #### 3 4556-1 #### [facility] [address] [place] [id number] Bacteria Spec BFld Culton Bacteria identified Sterile [...] to a previously preliminary verified report. Normal [facility] Comment on above: Performed By: #### 6 36-1 #### [facility] [address] [place] [address] Bacteria Tiss Culton 023 Bacteria identified Cx [...] to a previously preliminary verified report. Normal [facility] Comment on above: Performed By: #### 3 4556-1 #### [facility] [address] [place] [address] Performed By: #### 5 75-1 #### [facility] [address] [place] [address] Cell count panel (Body fld)o n 04-20-2022 Fluid Eosinophils 4.0 % Normal [facility] Comment on above: Performed By: #### 1 988-5 #### [facility] [address] [place] [address] Fluid Lining Cells 1.0 % Normal [facility] Comment on above: Performed By: #### 1 988-5 #### [facility] [address] [place] [address] Fluid Lymphocytes 46.0 % Normal [facility] Comment on above: Performed By: #### 1 988-5 #### [facility] [address] [facility] [place] [address] Fluid Monocytes/Macrophages 24.0 % Normal [facility] Comment on above: Performed By: #### 1 988-5 #### [facility] [address] [facility] [place] [address] Fluid Neutrophils 25.0 % Normal [facility] Comment on above: Performed By: #### 1 988-5 #### [facility] [address] [facility] [place] [address] Clarity (Body fld) Hazy [facility] Color (Body fld) [employer] RBC Auto (Body fld) [#/Vol] 29502 /mm3 [employer] Comment on above: The reference range and other method performance specifications have not been established for this fluid specimen. The test result should be integrated into the clinical context for interpretation. Specimen source Nom (Body fld) Synovial [employer] WBC (Body fld) [#/Vol] 111 /mm3 [facility] Comment on above: The reference range and other method performance specifications have not been established for this fluid specimen. The test result should be integrated into the clinical context for interpretation. [facility] Differential panel (Body fld )Ordered By: Valarie Delacruz on 04-20-2022 Eosinophils/100 WBC Manual cnt (Body fld) 4.0 % [facility] Fluid Lining Cells 1.0 % [facility] Lymphocytes/100 WBC Manual cnt (Body fld) 46.0 % [facility] Monocytes+Macrophages /100 WBC (Body fld) 24.0 % [facility] Neutrophils/100 WBC (Body fld) 25.0 % [facility] Fungus Skin Culton Fungus identified Cx Nom (Skin) Culture, Fungus Status = F No growth at 4 weeks Normal [facility] Comment on above: Performed By: #### 5 75-1 #### [facility] [address] [place] [address] Performed By: #### 3 4556-1 #### [facility] [address] [place] [address] Fungus identified Cx Nom (Skin) Culture, Fungus Status = F No growth at 4 weeks Normal [facility] Comment on above: Performed By: #### 5 75-1 #### [facility] ([facility]) [facility] [address] [place] [address] Glucose Auto test strip (Bld ) [Mass/Vol]on 04-20-2022 Glucose [Mass/Vol] 135 mg/dL High 70-99 [facility] Comment on above: Performed By: #### 1 988-5 #### [facility] [address] [place] [address] Glucose [Mass/Vol] 135 mg/dL High 70 - 99 mg/dL [facility] Interpretation and review of laboratory results Abnormal [facility] Mycobacterium Spec Culton Mycobacterium sp identified Org specific cx Nom (Unsp spec) Culture AFB Status = F No growth at 8 weeks AFB Stain Status = F No acid fast bacilli seen Normal [facility] Comment on above: Performed By: #### 5 43-9 #### [facility] ([facility] [address] [place] [address] Performed By: #### 3 4556-1 #### [facility] [address] [place] [address] Performed By: #### 5 75-1 #### [facility] ([facility]) LAB [address] [place] [address] Mycobacterium sp identified Org specific cx Nom (Unsp spec) Culture AFB Status = F No growth at 8 weeks AFB Stain Status = F No acid fast bacilli seen Normal [facility] Comment on above: Performed By: #### 5 75-1 #### [facility] [address] [place] [address] No Panel InformationOrdered By: Hilary Albarran on 04-20-2022 [facility] PT Coag (PPP) [Time]on 04-20 aPTT Coag (Bld) [Time] 22.0 s Low 23.3-35.3 [facility] Comment on above: Performed By: #### 1 988-5 #### [facility] [address] [place] [address] PT Coag (PPP) [Time]Ordered By: Hilary Albarran on 04-20-2022 INR Coag (PPP) [Relative time] 1.0 {INR} NINF - 5.0 [facility] [employer] Comment on above: The recommended ther apeutic INR range for most cardiac indications is 2.0-3.0 For high intensity therapy (i.e. mechanical heart valves), the recommended range is 2.5-3.5 Interpretation and review of laboratory results Normal [facility] PT Coag (Bld) [Time] 13.4 s [facility] [employer] Pathology studyon 04-20-2022 Pathology study Soft tissue, left Gilboa: - Mild nonspecific inflammation. - Negative for significant perivascular lymphocytic inflammation. A. Knee, Left, Rule out perivascular lymphocytic infiltrates: Received in formalin labeled with patient name and rule out perivascular lymphocytic infiltrates, left knee is a 3 cm aggregate of dusky rogers-trujillo fibrocartilaginous tissue. The specimen is representatively submitted in block A1. (zhw) The technical component was performed at [facility], [address] [place] [address]. Microscopic examination was performed. Normal [facility] Comment on above: Performed By: #### 1 1526-1 #### [facility] ([facility] [address] [place] [address] [facility] [address] [place] [address] XR KNEE 1-2 VIEWS LEFTon XR KNEE [...] Self Edit Transcribed Date: 04/20/2022 16:06 Normal [facility] XR Knee 1-2 Views Lefton FINDINGS/IMPRESSION: Status [...] By: Self Edit Transcribed Date: 04/20/2022 16:06 [facility] EXAMINATION TYPE: XR KNEE 1-2 VIEWS LEFT [...] By: Self Edit Transcribed Date: 04/20/2022 16:06 [facility] Study observation (narrative) [facility] XR Knee 1-2 Views LeftOrdere d By: Heriberto Saldana on 04-20-2022 [facility] Work Phone: aPTT Coag (Bld) [Time]on aPTT Coag (PPP) [Time] 22.0 s Low [facility] Interpretation and review of laboratory results Abnormal [facility] Covid-19 PCR (CVDTBH)on 04-02 SARS-CoV-2 (COVID-19) RNA REBECCA+probe Ql (Unsp spec) Not detected Normal NOT DETECTED [facility] Comment on above: Result Comment: [...] for this test is supported by the [place] of Health and Human Service's declaration that [...] #### C MP #### [facility] [address] [place] [address] Dr. Jeffrey Thomas Bacteria Spec Anaerobe Culto n 04-05-2022 Bacteria identified Anaer cx Nom (Unsp spec) Culture, Anaerobic Status = F No anaerobes grown after 4 days. Normal [facility] Comment on above: Performed By: #### 5 75-1 #### [facility] ([facility]) LAB [address] [place] [address] Bacteria Spec BFld Culton Bacteria identified Sterile [...] to a previously preliminary verified report. Normal [facility] Comment on above: Performed By: #### 5 75-1 #### [facility] ([facility]) [facility] [address] [place] [address] Blood type and Indirect anti body screen panel (Bld)on 04-05-2022 ABO group Nom (Bld) A Normal [facility] Comment on above: Performed By: #### 3 4532-2 #### [facility] [address] [place] [address] Rh Type Positive Normal [facility] Comment on above: Performed By: #### 3 4532-2 #### [facility] [address] [facility] [place] [address] CRP [Mass/Vol]on 04-05-2022 Anion gap [Moles/Vol] 9 mmol/L Normal 6-18 Ar[facility] Comment on above: Performed By: #### 1 988-5 #### [facility] [address] [facility] [place] [address] Calcium [Mass/Vol] 9.4 mg/dL Normal 8.9-10.3 [facility] Comment on above: Performed By: #### 1 988-5 #### [facility] [address] [place] [address] Chloride [Moles/Vol] 105 mmol/L Normal 98-107 [facility] Comment on above: Performed By: #### 1 988-5 #### [facility] [address] [place] [address] CO2 [Moles/Vol] 24 mmol/L Normal 22-[address] [facility] Comment on above: Performed By: #### 1 988-5 #### [facility] [address] [place] [address] Creatinine [Mass/Vol] 1.07 mg/dL Normal 0.60-1.30 Ar[facility] Comment on above: Performed By: #### 1 988-5 #### [facility] [address] [place] [address] GFR/1.73 sq M.predicted among non-blacks MDRD (S/P/Bld) [Vol rate/Area] 58 mL/min/{1.73_m2} Low >=60 [facility] Comment on above: Result Comment: Effe ctive January 08, 2022, calculation based on the?Chronic Kidney Disease Epidemiology Collaboration (CKD-EPI) equation refit?without adjustment for race. Performed By: #### 1 988-5 #### [facility] [address] [place] [address] Glucose [Mass/Vol] 97 mg/dL Normal 70-99 [facility] Comment on above: Performed By: #### 1 988-5 #### [facility] [address] [place] [address] Potassium [Moles/Vol] 4.9 mmol/L Normal 3.6-5.1 Ar[facility] Comment on above: Performed By: #### 1 988-5 #### [facility] [address] [place] [address] Sodium [Moles/Vol] 138 mmol/L Normal 136-145 [facility] Comment on above: Performed By: #### 1 988-5 #### [facility] [address] [place] [address] Urea nitrogen [Mass/Vol] 22 mg/dL High 8-20 [facility] Comment on above: Performed By: #### 1 988-5 #### [facility] [address] [place] [address] Urea nitrogen/Creatinine [Mass ratio] 20.6 mg/mg High 12.0-20.0 [facility] Comment on above: Performed By: #### 1 988-5 #### [facility] [address] [place] [address] Cell count panel (Body fld)o n 04-05-2022 Fluid Eosinophils 3.0 % Normal [facility] Comment on above: Result Comment: Boy ected result: Previously reported as 6.0 % on 04/05/2022 at 1416 EST. Performed By: #### 3 4556-1 #### [facility] [address] [place] [address] Fluid Lymphocytes 34.0 % Normal [facility] Comment on above: Result Comment: Boy ected result: Previously reported as 43.0 % on 04/05/2022 at 1416 EST. Performed By: #### 3 4556-1 #### [facility] [address] [place] [address] Fluid Monocytes/Macrophages 23.0 % Normal [facility] Comment on above: Result Comment: Boy ected result: Previously reported as 9.0 % on 04/05/2022 at 1416 EST. Performed By: #### 3 4556-1 #### [facility] [address] [place] [address] Fluid Neutrophils 40.0 % Normal [facility] Comment on above: Result Comment: Boy ected result: Previously reported as 39.0 % on 04/05/2022 at 1416 EST. Performed By: #### 3 4556-1 #### [facility] [address] [place] [address] Fluid Other Cells Normal [facility] Comment on above: Result Comment: Lini ng cells Corrected result: Previously reported as 3.0 % on 04/05/2022 at 1416 EST. Performed By: #### 3 4556-1 #### [facility] [address] [place] [address] Fungus Skin Culton 3 Fungus identified Cx Nom (Skin) Culture, Fungus Status = F No growth at 4 weeks Normal [facility] Comment on above: Performed By: #### 3 4556-1 #### [facility] [address] [place] [address] Hemogram and platelets WO di fferential panel (Bld)on 04-05-2022 Sed Rate 41 mm/hr High 0-20 [facility] Comment on above: Performed By: #### 5 75-1 #### [facility] ([facility]) [facility] [address] [place] [address] Mycobacterium Spec Culton Mycobacterium sp identified Org specific cx Nom (Unsp spec) Culture AFB Status = F No growth at 8 weeks AFB Stain Status = F No acid fast bacilli seen Normal [facility] Comment on above: Performed By: #### 1 988-5 #### [facility] [address] [place] [address] Basic metabolic 2000 panelon 01-05-2022 Anion gap [Moles/Vol] 12 mmol/L [facility] [employer] Calcium [Mass/Vol] 9.1 mg/dL 8.9 - 10. 3 mg/dL [facility] Chloride [Moles/Vol] 103 mmol/L 98 - 10 7 mmol/L [facility] CO2 [Moles/Vol] 19 mmol/L Low 22 - 32 mmol/L [facility] Creatinine [Mass/Vol] 1.28 mg/dL 0.60 - 1.30 mg/dL [facility] GFR/1.73 sq M.predicted MDRD (S/P/Bld) [Vol rate/Area] 44 mL/min/{1.73_m2} Low >=60 mL/min/1.73m 2 [facility] Glucose [Mass/Vol] 99 mg/dL 70 - 99 mg/dL [facility] Interpretation and review of laboratory results Abnormal [facility] Potassium [Moles/Vol] 5.1 mmol/L 3.6 - 5.1 mmol/L [facility] Sodium [Moles/Vol] 134 mmol/L Low 136 - 145 mmol/L [facility] Urea nitrogen [Mass/Vol] 34 mg/dL High 8 - 20 mg/dL [facility] Urea nitrogen/Creatinine [Mass ratio] 26.6 mg/mg High [facility] Hemogram and platelets WO di fferential panel (Bld)on 01-05-2022 Basophils (Bld) [#/Vol] 0.10 10*3/uL [facility] Basophils/100 WBC (Bld) 0.8 % 0.0 - 2.0 % [facility] Eosinophils (Bld) [#/Vol] 0.29 10*3/uL [facility] Eosinophils/100 WBC (Bld) 2.3 % 0.0 - [...] volume (Bld) [Entitic vol] 11.8 fL [facility] th Platelets (Bld) [#/Vol] 194 10*3/uL [...] [facility] Lymphocytes (Bld) [#/Vol] 2.54 10*3/uL [facility] Lymphocytes/100 WBC (Bld) 20.0 % 17.9 - 49.6 % [facility] Monocytes (Bld) [#/Vol] 1.02 10*3/uL High [facility] Monocytes/100 WBC (Bld) 8.0 % 0.0 - 12.0 % [facility] Segmented neutrophils (Bld) [#/Vol] 9.02 10*3/uL High [facility] Segmented neutrophils/100 WBC (Bld) 71.0 % 38.1 - 75.5 % [facility] PT Coag (PPP) [Time]on 01-05 INR Coag (PPP) [Relative time] 1.0 {INR} <=5.0 [facility] Comment on above: The recommended ther apeutic INR range for most cardiac indications is 2.0-3.0 For high intensity therapy (i.e. mechanical heart valves), the recommended range is 2.5-3.5 Interpretation and review of laboratory results Normal [facility] PT Coag (Bld) [Time] 13.0 s [facility] Basic metabolic 2000 panelon 01-04-2022 Anion gap [Moles/Vol] 9 mmol/L [facility] Calcium [Mass/Vol] 8.9 mg/dL 8.9 - 10. 3 mg/dL [facility] Chloride [Moles/Vol] 103 mmol/L 98 - 10 7 mmol/L [facility] CO2 [Moles/Vol] 21 mmol/L Low 22 - 32 mmol/L [facility] Creatinine [Mass/Vol] 1.00 mg/dL 0.60 - 1.30 mg/dL [facility] GFR/1.73 sq M.predicted MDRD (S/P/Bld) [Vol rate/Area] 59 mL/min/{1.73_m2} Low >=60 mL/min/1.73m 2 [facility] Glucose [Mass/Vol] 129 mg/dL High 70 - 99 mg/dL [facility] Interpretation and review of laboratory results Abnormal [facility] Potassium [Moles/Vol] 5.0 mmol/L 3.6 - 5.1 mmol/L [facility] Sodium [Moles/Vol] 133 mmol/L Low 136 - [...] mean volume (Bld) [Entitic vol] 11.5 fL [facility] th Platelets (Bld) [#/Vol] 271 10*3/uL [facility] RBC (Bld) [#/Vol] 3.39 10*6/uL Low [facility] WBC (Bld) [#/Vol] 14.6 10*3/uL High [facility] Manual Differential panel (B ld)on 01-04-2022 Interpretation and review of laboratory results Abnormal [facility] Lymphocytes (Bld) [#/Vol] 2.77 10*3/uL [facility] Lymphocytes/100 WBC (Bld) 19.0 % 17.9 - 49.6 % [facility] Monocytes (Bld) [#/Vol] 1.31 10*3/uL High [facility] Monocytes/100 WBC (Bld) 9.0 % 0.0 - 12.0 % [facility] Segmented neutrophils (Bld) [#/Vol] 10.51 10*3/uL High [facility] Segmented neutrophils/100 WBC (Bld) 72.0 % 38.1 - 75.5 % [facility] PT Coag (PPP) [Time]Ordered By: Hilary Albarran on 01-04-2022 INR Coag (PPP) [Relative time] 0.9 {INR} <=5.0 [facility] Comment on above: The recommended ther apeutic INR range for most cardiac indications is 2.0-3.0 For high intensity therapy (i.e. mechanical heart valves), the recommended range is 2.5-3.5 Interpretation and review of laboratory results Normal [facility] PT Coag (Bld) [Time] 12.6 s [facility] Glucose Auto test strip (Bld ) [Mass/Vol]on 01-03-2022 Glucose [Mass/Vol] 144 mg/dL High 70 - 99 mg/dL [facility] Interpretation and review of laboratory results Abnormal [facility] Covid-19 PCR (CVDTBH)on SARS-CoV-2 (COVID-19) RNA REBECCA+probe Ql (Unsp spec) Not detected Normal NOT DETECTED [facility] Comment on above: Result Comment: [...] for this test is supported by the [place] of Health and Human Service's declaration that [...] #### C MP #### [facility] [address] [place] [address] Dr. Jeffrey Thomas CBC AUTO DIFFon 12-14-2021 BASO # 0.1 103/ul Normal 0.0-0.1 [facility] Comment on above: Performed By: #### T 4LC #### [facility] [address] [place] [address] Dr. Jeffrey Thomas Basophils/100 WBC (Bld) 1.2 % Normal 0.2-2.[address] [facility] Comment on above: Performed By: #### T 4LC #### [facility] [address] [place] [address] Dr. Jeffrey Thomas EO # 0.2 103/ul Normal 0.0-0.[address] [facility] Comment on above: Performed By: #### T 4LC #### [facility] [address] [place] [address] Dr. Jeffrey Thomas Eosinophils/100 WBC (Bld) 3.2 % Normal 0.9-7.[address] [facility] Comment on above: Performed By: #### T 4LC #### [facility] [address] [place] [address] Dr. Jeffrey Thomas Erythrocyte distribution width (RBC) [Ratio] 15.9 % Critically high 11.0-15.[address] [facility] Comment on above: Performed By: #### T 4LC #### [facility] [address] [place] [address] Dr. Jeffrey Thomas Hematocrit (Bld) [Volume fraction] 35.1 % Critically low 36.0-48.0 [facility] Comment on above: Performed By: #### T 4LC #### [facility] [address] [place] [address] Dr. Jeffrey Thomas Hemoglobin (Bld) [Mass/Vol] 10.8 g/dL Critically low 12.0-16.0 [facility] Comment on above: Performed By: #### T 4LC #### [facility] [address] [place] [address] Dr. Jeffrey Thomas IG # 0.03 10e3/ul Normal 0.00-0.03 [facility] Comment on above: Performed By: #### 4LC #### [facility] [address] [place] [address] Dr. Jeffrey Thomas IG % 0.4 % Normal 0.0-0.5 [facility] Comment on above: Performed By: #### 4LC #### [facility] [address] [place] [address] Dr. Jeffrey Thomas LYMPH # 2.1 103/ul Normal 1.2-3.8 [facility] Comment on above: Performed By: #### 4LC #### [facility] [address] [place] [address] Dr. Jeffrey Thomas Lymphocytes/100 WBC (Bld) 30.8 % Normal 20.5-60.0 [facility] Comment on above: Performed By: #### 4LC #### [facility] [address] [place] [address] Dr. Jeffrey Thomas MANUAL DIFF REQ NO Normal [facility] Comment on above: Performed By: #### T 4LC #### [facility] [address] [place] [address] Dr. Jeffrey Thomas MCH (RBC) [Entitic mass] 30.3 pg Normal 26.7-34.0 [facility] Comment on above: Performed By: #### T 4LC #### [facility] [address] [place] [address] Dr. Jeffrey Thomas MCHC (RBC) [Mass/Vol] 30.8 g/dL Normal 29.9-35.[address] [facility] Comment on above: Performed By: #### T 4LC #### [facility] [address] [place] [address] Dr. Jeffrey Thomas MCV (RBC) [Entitic vol] 98.6 fL Normal 81.0-99.[address] [facility] Comment on above: Performed By: #### T 4LC #### [facility] [address] [place] [address] Dr. Jeffrey Thomas MONO # 0.5 103/ul Normal 0.3-0.8 [facility] Comment on above: Performed By: #### T 4LC #### [facility] [address] [place] [address] Dr. Jeffrey Thomas Monocytes/100 WBC (Bld) 7.5 % Normal 1.7-12.0 [facility] Comment on above: Performed By: #### T 4LC #### [facility] [address] [place] [address] Dr. Jeffrey Thomas NEUT # 3.9 103/ul Normal 1.4-6.5 [facility] Comment on above: Performed By: #### T 4LC #### [facility] [address] [place] [address] Dr. Jeffrey Thomas Neutrophils/100 WBC (Bld) 56.9 % Normal 43.0-75.[address] [facility] Comment on above: Performed By: #### T 4LC #### [facility] [address] [place] [address] Dr. Jeffrey Thomas Platelet mean volume (Bld) [Entitic vol] 12.0 fL Normal 9.5-13.[address] [facility] Comment on above: Performed By: #### T 4LC #### [facility] [address] [place] [address] Dr. Jeffrey Thomas PLT 209 103/ul Normal 150-[address] [facility] Comment on above: Performed By: #### T 4LC #### [facility] [address] [address] [address] Jeffrey Thomas RBC 3.56 106/ul Critically low 4.20-5.40 [facility] Comment on above: Performed By: #### T 4LC #### [facility] [address] [place] [address] Dr. Jeffrey Thomas WBC 6.8 103/ul Normal 4.0-11.0 [facility] Comment on above: Performed By: #### T 4LC #### [facility] [address] [place] [address] Dr. Jeffrey Thomas PROF 14(COMP METB)on 022 Albumin [Mass/Vol] 2.5 g/dL Critically low 3.4-5.0 [facility] Comment on above: Performed By: #### L ACT #### [facility] [address] [place] [address] Dr. Jeffrey Thomas Albumin/Globulin [Mass ratio] 1.0 {ratio} Normal [facility] Comment on above: Performed By: #### L ACT #### [facility] [address] [place] [address] Dr. Jeffrey Thomas ALP [Catalytic activity/Vol] 94 U/L Normal 46-116 [facility] Comment on above: Performed By: #### L ACT #### [facility] [address] [place] [address] Dr. Jeffrey Thomas ALT [Catalytic activity/Vol] 9 U/L Critically low 14-59 [facility] Comment on above: Performed By: #### L ACT #### [facility] [address] [place] [address] Dr. Jeffrey Thomas Anion gap [Moles/Vol] 11.7 mmol/L Normal [facility] Comment on above: Performed By: #### L ACT #### [facility] [address] [place] [address] Dr. Jeffrey Thomas AST [Catalytic activity/Vol] 6 U/L Critically low 15-37 [facility] Comment on above: Performed By: #### L ACT #### [facility] [address] [address] [address] Jeffrey Thomas Bilirubin [Mass/Vol] 0.1 mg/dL Critically low 0.2-1.0 [facility] Comment on above: Performed By: #### L ACT #### [facility] [address] [address] [address] Jeffrey Thomas Calcium [Mass/Vol] 8.2 mg/dL Critically low 8.5-10.1 [facility] Comment on above: Performed By: #### L ACT #### [facility] [address] [address] [address] Jeffrey Thomas Chloride [Moles/Vol] 111 mmol/L Critically high 98-107 [facility] Comment on above: Performed By: #### L ACT #### [facility] [address] [place] [address] Dr. Jeffrey Thomas CO2 [Moles/Vol] 22.5 mmol/L Normal 21.0-32.0 [facility] Comment on above: Performed By: #### L ACT #### [facility] [address] [place] [address] Dr. Jeffrey Thomas Creatinine [Mass/Vol] 0.87 mg/dL Normal 0.55-1.02 [facility] Comment on above: Performed By: #### L ACT #### [facility] [address] [place] [address] Dr. Jeffrey Thomas EGFR-AF TRISTANIAN >60 Normal >=60 [facility] Comment on above: Performed By: #### L ACT #### [facility] [address] [address] [address] Jeffrey Thomas EGFR-NON AF TRISTANIAN >60 Normal >=60 [facility] Comment on above: Performed By: #### L ACT #### [facility] [address] [place] [address] Dr. Jeffrey Thomas Globulin (S) [Mass/Vol] 2.6 g/dL Normal [facility] Comment on above: Performed By: #### L ACT #### [facility] [address] [address] [address] Jeffrey Thomas Glucose [Mass/Vol] 111 mg/dL Critically high 74-106 T [facility] Comment on above: Performed By: #### L ACT #### [facility] [address] [place] [address] Dr. Jeffrey Thomas Potassium [Moles/Vol] 4.2 mmol/L Normal 3.5-5.1 [facility] Comment on above: Performed By: #### L ACT #### [facility] [address] [place] [address] Dr. Jeffrey Thomas Protein [Mass/Vol] 5.1 g/dL Critically low 6.4-8.2 Th [facility] Comment on above: Performed By: #### L ACT #### [facility] [address] [place] [address] Dr. Jeffrey Thomas Sodium [Moles/Vol] 141 mmol/L Normal 136-145 [facility] Comment on above: Performed By: #### L ACT #### [facility] [address] [place] [address] Dr. Jeffrey Thomas Urea nitrogen [Mass/Vol] 31.0 mg/dL Critically high 7.0-18.0 [facility] Comment on above: Performed By: #### L ACT #### [facility] [address] [place] [address] Dr. Jeffrey Thomas Urea nitrogen/Creatinine [Mass ratio] 35.6 mg/mg Normal [facility] Comment on above: Performed By: #### L ACT #### [facility] [address] [place] [address] Dr. Jeffrey Thomas CBC AUTO DIFFon 12-13-2021 BASO # 0.1 103/ul Normal 0.0-0.1 [facility] Comment on above: Performed By: #### L ACT #### [facility] [address] [place] [address] Dr. Jeffrey Thomas Basophils/100 WBC (Bld) 1.3 % Normal 0.2-2.0 [facility] Comment on above: Performed By: #### L ACT #### [facility] [address] [place] [address] Dr. Jeffrey Thomas EO # 0.3 103/ul Normal 0.0-0.7 [facility] Comment on above: Performed By: #### L ACT #### [facility] [address] [place] [address] Dr. Jeffrey Thomas Eosinophils/100 WBC (Bld) 3.8 % Normal 0.9-7.0 [facility] Comment on above: Performed By: #### L ACT #### [facility] [address] [place] [address] Dr. Jeffrey Thomas Erythrocyte distribution width (RBC) [Ratio] 15.7 % Critically high 11.0-15.0 [facility] Comment on above: Performed By: #### L ACT #### [facility] [address] [place] [address] Dr. Jeffrey Thomas Hematocrit (Bld) [Volume fraction] 35.7 % Critically low 36.0-48.0 [facility] Comment on above: Performed By: #### L ACT #### [facility] [address] [place] [address] Dr. Jeffrey Thomas Hemoglobin (Bld) [Mass/Vol] 11.5 g/dL Critically low 12.0-16.0 [facility] Comment on above: Performed By: #### L ACT #### [facility] [address] [place] [address] Dr. Jeffrey Thomas IG # 0.04 10e3/ul Critically high 0.00-0.03 [facility] Comment on above: Performed By: #### L ACT #### [facility] [address] [place] [address] Dr. Jeffrey Thomas IG % 0.6 % Critically high 0.0-0.5 [facility] Comment on above: Performed By: #### L ACT #### [facility] [address] [place] [address] Dr. Jeffrey Thomas LYMPH # 2.0 103/ul Normal 1.2-3.8 [facility] Comment on above: Performed By: #### L ACT #### [facility] [address] [place] [address] Dr. Jeffrey Thomas Lymphocytes/100 WBC (Bld) 28.8 % Normal 20.5-60.0 [facility] Comment on above: Performed By: #### L ACT #### [facility] [address] [place] [address] Dr. Jeffrey Thomas MANUAL DIFF REQ NO Normal [facility] Comment on above: Performed By: #### L ACT #### [facility] [address] [place] [address] Dr. Jeffrey Thomas MCH (RBC) [Entitic mass] 31.6 pg Normal 26.7-34.0 [facility] Comment on above: Performed By: #### L ACT #### [facility] [address] [place] [address] Dr. Jeffrey Thomas MCHC (RBC) [Mass/Vol] 32.2 g/dL Normal 29.9-35.2 [facility] Comment on above: Performed By: #### L ACT #### [facility] [address] [place] [address] Dr. Jeffrey Thomas MCV (RBC) [Entitic vol] 98.1 fL Normal 81.0-99.0 [facility] Comment on above: Performed By: #### L ACT #### [facility] [address] [place] [address] Dr. Jeffrey Thomas MONO # 0.6 103/ul Normal 0.3-0.8 [facility] Comment on above: Performed By: #### L ACT #### [facility] [address] [place] [address] Dr. Jeffrey Thomas Monocytes/100 WBC (Bld) 8.5 % Normal 1.7-12.0 [facility] Comment on above: Performed By: #### L ACT #### [facility] [address] [place] [address] Dr. Jeffrey Thomas NEUT # 3.9 103/ul Normal 1.4-6.5 [facility] Comment on above: Performed By: #### L ACT #### [facility] [address] [place] [address] Dr. Jeffrey Thomas Neutrophils/100 WBC (Bld) 57.0 % Normal 43.0-75.0 [facility] Comment on above: Performed By: #### L ACT #### [facility] [address] [address] [address] Jeffrey Thomas Platelet mean volume (Bld) [Entitic vol] 11.5 fL Normal 9.5-13.5 [facility] Comment on above: Performed By: #### L ACT #### [facility] [address] [address] [address] Jeffrey Thomas PLT 199 103/ul Normal 150-450 [facility] Comment on above: Performed By: #### L ACT #### [facility] [address] [address] [address] Jeffrey Thomas RBC 3.64 106/ul Critically low 4.20-5.40 [facility] Comment on above: Performed By: #### L ACT #### [facility] [address] [place] [address] Dr. Jeffrey Thomas WBC 6.9 103/ul Normal 4.0-11.0 [facility] Comment on above: Performed By: #### L ACT #### [facility] [address] [place] [address] Dr. Jeffrey Thomas POINT OF CARE GLUCOSEon 12-01 Glucose [Mass/Vol] 85 mg/dL Normal 74-106 [facility] Comment on above: Performed By: #### C MP #### [facility] [address] [place] [address] Dr. Jeffrey Thomas PROF 14(COMP METB)on 022 Albumin [Mass/Vol] 2.7 g/dL Critically low 3.4-5.0 [facility] Comment on above: Performed By: #### A MM #### [facility] [address] [place] [address] Dr. Jeffrey Thomas Albumin/Globulin [Mass ratio] 1.0 {ratio} Normal [facility] Comment on above: Performed By: #### A MM #### [facility] [address] [place] [address] Dr. Jeffrey Thomas ALP [Catalytic activity/Vol] 95 U/L Normal 46-116 [facility] Comment on above: Performed By: #### A MM #### [facility] [address] [address] [address] Jeffrey Thomas ALT [Catalytic activity/Vol] 11 U/L Critically low 14-59 [facility] Comment on above: Performed By: #### A MM #### [facility] [address] [address] [address] Jeffrey Thomas Anion gap [Moles/Vol] 10.8 mmol/L Normal [facility] Comment on above: Performed By: #### A MM #### [facility] [address] [address] [address] Jeffrey Thomas AST [Catalytic activity/Vol] 14 U/L Critically low 15-37 [facility] Comment on above: Performed By: #### A MM #### [facility] [address] [address] [address] Jeffrey Thomas Bilirubin [Mass/Vol] 0.2 mg/dL Normal 0.2-1.0 [facility] Comment on above: Performed By: #### A MM #### [facility] [address] [address] [address] Jeffrey Thomas Calcium [Mass/Vol] 8.3 mg/dL Critically low 8.5-10.1 [facility] Comment on above: Performed By: #### A MM #### [facility] [address] [address] [address] Jeffrey Thomas Chloride [Moles/Vol] 113 mmol/L Critically high 98-107 [facility] Comment on above: Performed By: #### A MM #### [facility] [address] [address] [address] Jeffrey Thomas CO2 [Moles/Vol] 22.1 mmol/L Normal 21.0-32.0 [facility] Comment on above: Performed By: #### A MM #### [facility] [address] [address] [address] Jeffrey Thomas Creatinine [Mass/Vol] 0.98 mg/dL Normal 0.55-1.02 [facility] Comment on above: Performed By: #### A MM #### [facility] [address] [address] [address] Jeffrey Thomas EGFR-AF TRISTANIAN >60 Normal >=60 [facility] Comment on above: Performed By: #### A MM #### [facility] [address] [address] [address] Jeffrey Thomas EGFR-NON AF TRISTANIAN 57 mL/min/1.73m2 Critically low >=60 [facility] Comment on above: Performed By: #### A MM #### [facility] [address] [address] [address] Jeffrey Thomas Globulin (S) [Mass/Vol] 2.6 g/dL Normal [facility] Comment on above: Performed By: #### A MM #### [facility] [address] [address] [address] Jeffrey Thomas Glucose [Mass/Vol] 102 mg/dL Normal 74-106 [facility] Comment on above: Performed By: #### A MM #### [facility] [address] [address] [address] Jeffrey Thomas Potassium [Moles/Vol] 3.9 mmol/L Normal 3.5-5.1 [facility] Comment on above: Performed By: #### A MM #### [facility] [address] [address] [address] Jeffrey Thomas Protein [Mass/Vol] 5.3 g/dL Critically low 6.4-8.2 Th [facility] Comment on above: Performed By: #### A MM #### [facility] [address] [address] [address] Jeffrey Thomas Sodium [Moles/Vol] 142 mmol/L Normal 136-145 [facility] Comment on above: Performed By: #### A MM #### [facility] [address] [address] [address] Jeffrey Thomas Urea nitrogen [Mass/Vol] 26.0 mg/dL Critically high 7.0-18.0 [facility] Comment on above: Performed By: #### A MM #### [facility] [address] [place] [address] Dr. Jeffrey Thomas Urea nitrogen/Creatinine [Mass ratio] 26.5 mg/mg Normal [facility] Comment on above: Performed By: #### A MM #### [facility] [address] [place] [address] Dr. Jeffrey Thomas T3, TOTAL (TRIIODOTHYRONINE) on 12-13-2021 T3, TOTAL 72 ng/dL Normal 71-180 [facility] Comment on above: Performed By: #### C MP #### [facility] [address] [place] [address] Dr. Jeffrey Thomas T4 LABCORPon 12-13-2021 T4 [Mass/Vol] 5.2 ug/dL Normal 4.5-12.0 [facility] Comment on above: Performed By: #### T 4LC #### [facility] [address] [place] [address] Dr. Jeffrey Thomas AMMONIAon 12-12-2021 Ammonia (P) [Moles/Vol] 10 umol/L Critically low 11-32 [facility] Comment on above: Performed By: #### A MM #### [facility] [address] [place] [address] Dr. Jeffrey Thomas CBC AUTO DIFFon 12-12-2021 BASO # 0.1 103/ul Normal 0.0-0.1 [facility] Comment on above: Performed By: #### T 4LC #### [facility] [address] [place] [address] Dr. Jeffrey Thomas Basophils/100 WBC (Bld) 1.4 % Normal 0.2-2.0 [facility] Comment on above: Performed By: #### T 4LC #### [facility] [address] [place] [address] Dr. Jeffrey Thomas EO # 0.2 103/ul Normal 0.0-0.7 [facility] Comment on above: Performed By: #### T 4LC #### [facility] [address] [place] [address] Dr. Jeffrey Thomas Eosinophils/100 WBC (Bld) 2.6 % Normal 0.9-7.0 [facility] Comment on above: Performed By: #### T 4LC #### [facility] [address] [place] [address] Dr. Jeffrey Thomas Erythrocyte distribution width (RBC) [Ratio] 15.7 % Critically high 11.0-15.0 [facility] Comment on above: Performed By: #### T 4LC #### [facility] [address] [place] [address] Dr. Jeffrey Thomas Hematocrit (Bld) [Volume fraction] 38.4 % Normal 36.0-48.0 [facility] Comment on above: Performed By: #### T 4LC #### [facility] [address] [place] [address] Dr. Jeffrey Thomas Hemoglobin (Bld) [Mass/Vol] 12.2 g/dL Normal 12.0-16.0 [facility] Comment on above: Performed By: #### T 4LC #### [facility] [address] [place] [address] Dr. Jeffrey Thomas IG # 0.04 10e3/ul Critically high 0.00-0.03 [facility] Comment on above: Performed By: #### T 4LC #### [facility] [address] [place] [address] Dr. Jeffrey Thomas IG % 0.5 % Normal 0.0-0.5 [facility] Comment on above: Performed By: #### T 4LC #### [facility] [address] [place] [address] Dr. Jeffrey Thomas LYMPH # 2.2 103/ul Normal 1.2-3.[address] [facility] Comment on above: Performed By: #### T 4LC #### [facility] [address] [place] [address] Dr. Jeffrey Thomas Lymphocytes/100 WBC (Bld) 28.0 % Normal 20.5-60.0 [facility] Comment on above: Performed By: #### T 4LC #### [facility] [address] [place] [address] Dr. Jeffrey Thomas MANUAL DIFF REQ NO Normal [facility] Comment on above: Performed By: #### T 4LC #### [facility] [address] [place] [address] Dr. Jeffrey Thomas MCH (RBC) [Entitic mass] 30.9 pg Normal 26.7-34.0 [facility] Comment on above: Performed By: #### T 4LC #### [facility] [address] [place] [address] Dr. Jeffrey Thomas MCHC (RBC) [Mass/Vol] 31.8 g/dL Normal 29.9-35.2 [facility] Comment on above: Performed By: #### T 4LC #### [facility] [address] [place] [address] Dr. Jeffrey Thomas MCV (RBC) [Entitic vol] 97.2 fL Normal 81.0-99.0 [facility] Comment on above: Performed By: #### T 4LC #### [facility] [address] [place] [address] Dr. Jeffrey Thomas MONO # 0.6 103/ul Normal 0.3-0.8 [facility] Comment on above: Performed By: #### T 4LC #### [facility] [address] [place] [address] Dr. Jeffrey Thomas Monocytes/100 WBC (Bld) 7.9 % Normal 1.7-12.0 [facility] Comment on above: Performed By: #### T 4LC #### [facility] [address] [place] [address] Dr. Jeffrey Thomas NEUT # 4.7 103/ul Normal 1.4-6.[address] [facility] Comment on above: Performed By: #### T 4LC #### [facility] [address] [place] [address] Dr. Jeffrey Thomas Neutrophils/100 WBC (Bld) 59.6 % Normal 43.0-75.0 [facility] Comment on above: Performed By: #### T 4LC #### [facility] [address] [place] [address] Dr. Jeffrey Thomas Platelet mean volume (Bld) [Entitic vol] 11.7 fL Normal 9.5-13.5 [facility] Comment on above: Performed By: #### T 4LC #### [facility] [address] [place] [address] Dr. Jeffrey Thomas PLT 256 103/ul Normal 150-[address] [facility] Comment on above: Performed By: #### T 4LC #### [facility] [address] [place] [address] Dr. Jeffrey Thomas RBC 3.95 106/ul Critically low 4.20-5.40 [facility] Comment on above: Performed By: #### T 4LC #### [facility] [address] [place] [address] Dr. Jeffrey Thomas WBC 7.9 103/ul Normal 4.0-11.0 [facility] Comment on above: Performed By: #### T 4LC #### [facility] [address] [place] [address] Dr. Jeffrey Thomas BASO # 0.1 103/ul Normal 0.0-0.1 [facility] Comment on above: Performed By: #### C MP #### [facility] [address] [place] [address] Dr. Jeffrey Thomas Basophils/100 WBC (Bld) 1.4 % Normal 0.2-2.0 [facility] Comment on above: Performed By: #### C MP #### [facility] [address] [place] [address] Dr. Jeffrey Thomas EO # 0.2 103/ul Normal 0.0-0.[address] [facility] Comment on above: Performed By: #### C MP #### [facility] [address] [place] [address] Dr. Jeffrey Thomas Eosinophils/100 WBC (Bld) 2.9 % Normal 0.9-7.0 [facility] Comment on above: Performed By: #### C MP #### [facility] [address] [place] [address] Dr. Jeffrey Thomas Erythrocyte distribution width (RBC) [Ratio] 15.7 % Critically high 11.0-15.0 [facility] Comment on above: Performed By: #### C MP #### [facility] [address] [place] [address] Dr. Jeffrey Thomas Hematocrit (Bld) [Volume fraction] 40.7 % Normal 36.0-48.0 [facility] Comment on above: Performed By: #### C MP #### [facility] [address] [place] [address] Dr. Jeffrey Thomas Hemoglobin (Bld) [Mass/Vol] 12.9 g/dL Normal 12.0-16.0 [facility] Comment on above: Performed By: #### C MP #### [facility] [address] [place] [address] Dr. Jeffrey Thomas IG # 0.02 10e3/ul Normal 0.00-0.03 [facility] Comment on above: Performed By: #### C MP #### [facility] [address] [place] [address] Dr. Jeffrey Thomas IG % 0.3 % Normal 0.0-0.5 [facility] Comment on above: Performed By: #### C MP #### [facility] [address] [place] [address] Dr. Jeffrey Thomas LYMPH # 1.7 103/ul Normal 1.2-3.8 [facility] Comment on above: Performed By: #### C MP #### [facility] [address] [place] [address] Dr. Jeffrey Thomas Lymphocytes/100 WBC (Bld) 28.4 % Normal 20.5-60.0 [facility] Comment on above: Performed By: #### C MP #### [facility] [address] [place] [address] Dr. Jeffrey Thomas MANUAL DIFF REQ NO Normal [facility] Comment on above: Performed By: #### C MP #### [facility] [address] [place] [address] Dr. Jeffrey Thomas MCH (RBC) [Entitic mass] 30.7 pg Normal 26.7-34.0 [facility] Comment on above: Performed By: #### C MP #### [facility] [address] [address] [address] Jeffrey Thomas MCHC (RBC) [Mass/Vol] 31.7 g/dL Normal 29.9-35.2 [facility] Comment on above: Performed By: #### C MP #### [facility] [address] [address] [address] Jeffrey Thomas MCV (RBC) [Entitic vol] 96.9 fL Normal 81.0-99.0 [facility] Comment on above: Performed By: #### C MP #### [facility] [address] [address] [address] Jeffrey Thomas MONO # 0.5 103/ul Normal 0.3-0.8 [facility] Comment on above: Performed By: #### C MP #### [facility] [address] [place] [address] Dr. Jeffrey Thomas Monocytes/100 WBC (Bld) 8.3 % Normal 1.7-12.0 [facility] Comment on above: Performed By: #### C MP #### [facility] [address] [address] [address] Jeffrey Thomas NEUT # 3.5 103/ul Normal 1.4-6.5 [facility] Comment on above: Performed By: #### C MP #### [facility] [address] [address] [address] Jeffrey Thomas Neutrophils/100 WBC (Bld) 58.7 % Normal 43.0-75.[address] [facility] Comment on above: Performed By: #### C MP #### [facility] [address] [address] [address] Jeffrey Thomas Platelet mean volume (Bld) [Entitic vol] 11.5 fL Normal 9.5-13.[address] [facility] Comment on above: Performed By: #### C MP #### [facility] [address] [place] [address] Dr. Jeffrey Thomas PLT 241 103/ul Normal 150-[address] [facility] Comment on above: Performed By: #### C MP #### [facility] [address] [address] [address] Jeffrey Thomas RBC 4.20 106/ul Normal 4.20-5.[address] [facility] Comment on above: Performed By: #### C MP #### [facility] [address] [place] [address] Dr. Jeffrey Thomas WBC 5.9 103/ul Normal 4.0-11.[address] [facility] Comment on above: Performed By: #### C MP #### [facility] [address] [place] [address] Dr. Jeffrey Thomas BASO # 0.1 103/ul Normal 0.0-0.[address] [facility] Comment on above: Performed By: #### A MM #### [facility] [address] [place] [address] Dr. Jeffrey Thomas Basophils/100 WBC (Bld) 1.7 % Normal 0.2-2.[address] [facility] Comment on above: Performed By: #### A MM #### [facility] [address] [place] [address] Dr. Jeffrey Thomas EO # 0.1 103/ul Normal 0.0-0.7 [facility] Comment on above: Performed By: #### A MM #### [facility] [address] [place] [address] Dr. Jeffrey Thomas Eosinophils/100 WBC (Bld) 1.7 % Normal 0.9-7.[address] [facility] Comment on above: Performed By: #### A MM #### [facility] [address] [place] [address] Dr. Jeffrey Thomas Erythrocyte distribution width (RBC) [Ratio] 15.6 % Critically high 11.0-15.[address] [facility] Comment on above: Performed By: #### A MM #### [facility] [address] [place] [address] Dr. Jeffrey Thomas Hematocrit (Bld) [Volume fraction] 43.4 % Normal 36.0-48.[address] [facility] Comment on above: Performed By: #### A MM #### [facility] [address] [address] [address] Jeffrey Thomas Hemoglobin (Bld) [Mass/Vol] 14.2 g/dL Normal 12.0-16.0 [facility] Comment on above: Performed By: #### A MM #### [facility] [address] [address] [address] Jeffrey Thomas IG # 0.04 10e3/ul Critically high 0.00-0.03 [employer] [facility] [employer] [facility] Comment on above: Performed By: #### A MM #### [facility] [address] [address] [address] Jeffrey Thomas IG % 0.6 % Critically high 0.0-0.5 [facility] Comment on above: Performed By: #### A MM #### [facility] [address] [place] [address] Dr. Jeffrey Thomas LYMPH # 2.2 103/ul Normal 1.2-3.8 [facility] Comment on above: Performed By: #### A MM #### [facility] [address] [place] [address] Dr. Jeffrey Thomas Lymphocytes/100 WBC (Bld) 32.7 % Normal 20.5-60.0 [facility] Comment on above: Performed By: #### A MM #### [facility] [address] [place] [address] Dr. Jeffrey Thomas MANUAL DIFF REQ NO Normal [facility] Comment on above: Performed By: #### A MM #### [facility] [address] [address] [address] Jeffrey Thomas MCH (RBC) [Entitic mass] 31.3 pg Normal 26.7-34.0 [facility] Comment on above: Performed By: #### A MM #### [facility] [address] [place] [address] Dr. Jeffrey Thomas MCHC (RBC) [Mass/Vol] 32.7 g/dL Normal 29.9-35.2 [facility] Comment on above: Performed By: #### A MM #### [facility] [address] [address] [address] Jeffrey Thomas MCV (RBC) [Entitic vol] 95.8 fL Normal 81.0-99.[address] [facility] Comment on above: Performed By: #### A MM #### [facility] [address] [place] [address] Dr. Jeffrey Thomas MONO # 0.7 103/ul Normal 0.3-0.[address] [facility] Comment on above: Performed By: #### A MM #### [facility] [address] [address] [address] Jeffrey Thomas Monocytes/100 WBC (Bld) 9.9 % Normal 1.7-12.[address] [facility] Comment on above: Performed By: #### A MM #### [facility] [address] [place] [address] Dr. Jeffrey Thomas NEUT # 3.5 103/ul Normal 1.4-6.[address] [facility] Comment on above: Performed By: #### A MM #### [facility] [address] [place] [address] Dr. Jeffrey Thomas Neutrophils/100 WBC (Bld) 53.4 % Normal 43.0-75.[address] [facility] Comment on above: Performed By: #### A MM #### [facility] [address] [place] [address] Dr. Jeffrey Thomas Platelet mean volume (Bld) [Entitic vol] 12.1 fL Normal 9.5-13.[address] [facility] Comment on above: Performed By: #### A MM #### [facility] [address] [place] [address] Dr. Jeffrey Thomas PLT 307 103/ul Normal 150-[address] [facility] Comment on above: Performed By: #### A MM #### [facility] [address] [place] [address] Dr. Jeffrey Thomas RBC 4.53 106/ul Normal 4.20-5.[address] [facility] Comment on above: Performed By: #### A MM #### [facility] [address] [place] [address] Dr. Jeffrey Thomas WBC 6.6 103/ul Normal 4.0-11.0 [facility] Comment on above: Performed By: #### A MM #### [facility] [address] [place] [address] Dr. Jeffrey Thomas Covid-19 PCR ([facility])on 12-01 SARS-CoV-2 (COVID-19) RNA REBECCA+probe Ql (Unsp spec) Not detected Normal NOT DETECTED The [facility] Comment on above: Result Comment: [...] for this test is supported by the [employer] of Health and Human Service's declaration that [...] #### C VDTB #### [facility] [address] [place] [address] Dr. Jeffrey Thomas DRUG SCREEN RAPID (URINE)on 12-12-2021 AMP Negative Normal NEGATIVE [facility] Comment on above: Performed By: #### T 4LC #### [facility] [address] [place] [address] Dr. Jeffrey Thomas BAR Negative Normal NEGATIVE [facility] Comment on above: Performed By: #### T 4LC #### [facility] [address] [place] [address] Dr. Jeffrey Thomas BUP Negative Normal NEGATIVE [facility] Comment on above: Performed By: #### T 4LC #### [facility] [address] [place] [address] Dr. Jeffrey Thomas BZO Positive Abnormal NEGATIVE [facility] Comment on above: Performed By: #### T 4LC #### [facility] [address] [place] [address] Dr. Jeffrey Thomas VIKASH Negative Normal NEGATIVE [facility] Comment on above: Performed By: #### T 4LC #### [facility] [address] [place] [address] Dr. Jeffrey Thomas CUT-OFFS SEE BELOW Normal [facility] Comment on above: Result Comment: [...] #### T 4LC #### [facility] [address] [place] [address] Dr. Jeffrey Thomas DRUG CUT HEADER DRUG CLASS TEST SYSTEM CUT-OFF CONCENTRATIONS ARE FOLLOWS: Normal [facility] Comment on above: Performed By: #### T 4LC #### [facility] [address] [place] [address] Dr. Jeffrey Thomas mAMP Negative Normal NEGATIVE [facility] Comment on above: Performed By: #### T 4LC #### [facility] [address] [place] [address] Dr. Jeffrey Thomas MTD Negative Normal NEGATIVE [facility] Comment on above: Performed By: #### T 4LC #### [facility] [address] [place] [address] Dr. Jeffrey Thomas OPI Negative Normal NEGATIVE [facility] Comment on above: Performed By: #### T 4LC #### [facility] [address] [place] [address] Dr. Jeffrey Thomas OXY Negative Normal NEGATIVE [facility] Comment on above: Performed By: #### T 4LC #### [facility] [address] [place] [address] Dr. Jeffrey Thomas PCP Negative Normal NEGATIVE [facility] Comment on above: Performed By: #### T 4LC #### [facility] [address] [place] [address] Dr. Jeffrey Thomas PPX Negative Normal NEGATIVE [facility] Comment on above: Performed By: #### T 4LC #### [facility] [address] [place] [address] Dr. Jeffrey Thomas TCA Positive Abnormal NEGATIVE [facility] Comment on above: Performed By: #### T 4LC #### [facility] [address] [place] [address] Dr. Jeffrey Thomas THC Negative Normal NEGATIVE [facility] Comment on above: Performed By: #### T 4LC #### [facility] [address] [place] [address] Dr. Jeffrey Thomas AMP Negative Normal NEGATIVE [facility] Comment on above: Performed By: #### C MP #### [facility] [address] [place] [address] Dr. Jeffrey Thomas BAR Negative Normal NEGATIVE [facility] Comment on above: Performed By: #### C MP #### [facility] [address] [place] [address] Dr. Jeffrey Thomas BUP Negative Normal NEGATIVE [facility] Comment on above: Performed By: #### C MP #### [facility] [address] [place] [address] Dr. Jeffrey Thomas BZO Positive Abnormal NEGATIVE [facility] Comment on above: Performed By: #### C MP #### [facility] [address] [place] [address] Dr. Jeffrey Thomas VIKASH Negative Normal NEGATIVE [facility] Comment on above: Performed By: #### C MP #### [facility] [address] [place] [address] Dr. Jeffrey Thomas CUT-OFFS SEE BELOW Normal [facility] Comment on above: Result Comment: [...] #### C MP #### [facility] [address] [place] [address] Dr. Jeffrey Thomas DRUG CUT HEADER DRUG CLASS TEST SYSTEM CUT-OFF CONCENTRATIONS ARE FOLLOWS: Normal [facility] Comment on above: Performed By: #### C MP #### [facility] [address] [place] [address] Dr. Jeffrey Thomas mAMP Negative Normal NEGATIVE [facility] Comment on above: Performed By: #### C MP #### [facility] [address] [place] [address] Dr. Jeffrey Thomas MTD Negative Normal NEGATIVE [facility] Comment on above: Performed By: #### C MP #### [facility] [address] [place] [address] Dr. Jeffrey Thomas OPI Negative Normal NEGATIVE [facility] Comment on above: Performed By: #### C MP #### [facility] [address] [place] [address] Dr. Jeffrey Thomas OXY Negative Normal NEGATIVE [facility] Comment on above: Performed By: #### C MP #### [facility] [address] [place] [address] Dr. Jeffrey Thomas PCP Negative Normal NEGATIVE [facility] Comment on above: Performed By: #### C MP #### [facility] [address] [place] [address] Dr. Jeffrey Thomas PPX Negative Normal NEGATIVE [facility] Comment on above: Performed By: #### C MP #### [facility] [address] [place] [address] Dr. Jeffrey Thomas TCA Positive Abnormal NEGATIVE [facility] Comment on above: Performed By: #### C MP #### [facility] [address] [place] [address] Dr. Jeffrey Thomas THC Negative Normal NEGATIVE [facility] Comment on above: Performed By: #### C MP #### [facility] [address] [place] [address] Dr. Jeffrey Thomas ER URINE PROFILEon 2 Bilirubin Ql (U) SMALL Abnormal NEGATIVE [facility] Comment on above: Performed By: #### C MP #### [facility] [address] [place] [address] Dr. Jeffrey Thomas Clarity (U) CLEAR Normal CLEAR [facility] Comment on above: Performed By: #### C MP #### [facility] [address] [place] [address] Dr. Jeffrey Thomas Color (U) YELLOW Normal YELLOW [facility] Comment on above: Performed By: #### C MP #### [facility] [address] [place] [address] Dr. Jeffrey AVERYMike A micrscopic examination will be performed if indicated. Normal [facility] Comment on above: Performed By: #### C MP #### [facility] [address] [place] [address] Dr. Jeffrey Thomas Glucose Ql (U) Negative Normal NEGATIVE [facility] Comment on above: Performed By: #### C MP #### [facility] [address] [place] [address] Dr. Jeffrey Thomas Hemoglobin Ql (U) Negative Normal NEGATIVE [facility] Comment on above: Performed By: #### C MP #### [facility] [address] [place] [address] Dr. Jeffrey Thomas Ketones Ql (U) Negative Normal NEGATIVE [facility] Comment on above: Performed By: #### C MP #### [facility] [address] [place] [address] Dr. Jeffrey Thomas LEUKOCYTES Negative Normal NEGATIVE [facility] Comment on above: Performed By: #### C MP #### [facility] [address] [place] [address] Dr. Jeffrey Thomas Nitrite Ql (U) Negative Normal NEGATIVE [facility] Comment on above: Performed By: #### C MP #### [facility] [address] [place] [address] Dr. Jeffrey Thomas pH (U) 5.0 [pH] Normal 5-9 [facility] Comment on above: Performed By: #### C MP #### [facility] [address] [place] [address] Dr. Jeffrey Thomas SPEC GRAVITY 1.025 Normal 1.005-<=1.02 5 [facility] Comment on above: Performed By: #### C MP #### [facility] [address] [place] [address] Dr. Jeffrey Thomas UA PROTEIN Negative Normal NEGATIVE/ TRACE [facility] Comment on above: Performed By: #### C MP #### [facility] [address] [place] [address] Dr. Jeffrey Thomas UR MICRO IND NOT INDICATED Normal [facility] Comment on above: Performed By: #### C MP #### [facility] [address] [place] [address] Dr. Jeffrey Thomas Urobilinogen Qn (U) 0.2 {Bere'U}/dL Normal 0.2 - 1. 0 [facility] Comment on above: Performed By: #### C MP #### [facility] [address] [place] [address] Dr. Jeffrey Thomas PROF 14(COMP METB)on 022 Albumin [Mass/Vol] 2.9 g/dL Critically low 3.4-5.0 [facility] Comment on above: Performed By: #### C MP #### [facility] [address] [place] [address] Dr. Jeffrey Thomas Albumin/Globulin [Mass ratio] 1.0 {ratio} Normal [facility] Comment on above: Performed By: #### C MP #### [facility] [address] [place] [address] Dr. Jeffrey Thomas ALP [Catalytic activity/Vol] 116 U/L Normal 46-116 [facility] Comment on above: Performed By: #### C MP #### [facility] [address] [address] [address] Jeffrey Thomas ALT [Catalytic activity/Vol] 12 U/L Critically low 14-59 [facility] Comment on above: Performed By: #### C MP #### [facility] [address] [address] [address] Jeffrey Thomas Anion gap [Moles/Vol] 11.8 mmol/L Normal Th [facility] Comment on above: Performed By: #### C MP #### [facility] [address] [address] [address] Jeffrey Thomas AST [Catalytic activity/Vol] 12 U/L Critically low 15-37 [facility] Comment on above: Performed By: #### C MP #### [facility] [address] [place] [address] Dr. Jeffrey Thomas Bilirubin [Mass/Vol] 0.1 mg/dL Critically low 0.2-1.0 [facility] Comment on above: Performed By: #### C MP #### [facility] [address] [address] [address] Jeffrey Thomas Calcium [Mass/Vol] 8.2 mg/dL Critically low 8.5-10.1 [facility] Comment on above: Performed By: #### C MP #### [facility] [address] [address] [address] Jeffrey Thomas Chloride [Moles/Vol] 111 mmol/L Critically high 98-107 [facility] Comment on above: Performed By: #### C MP #### [facility] [address] [address] [address] Jeffrey Thomas CO2 [Moles/Vol] 20.2 mmol/L Critically low 21.0-32.0 [facility] Comment on above: Performed By: #### C MP #### [facility] [address] [address] [address] Jeffrey Thomas Creatinine [Mass/Vol] 1.26 mg/dL Critically high 0.55-1.02 [facility] Comment on above: Performed By: #### C MP #### [facility] [address] [place] [address] Dr. Jeffrey Thomas EGFR-AF TRISTANIAN 52 mL/min/1.73m2 Critically low >=60 [facility] Comment on above: Performed By: #### C MP #### [facility] [address] [address] [address] Jeffrey Thomas EGFR-NON AF TRISTANIAN 43 mL/min/1.73m2 Critically low >=60 [facility] Comment on above: Performed By: #### C MP #### [facility] [address] [place] [address] Dr. Jeffrey Thomas Globulin (S) [Mass/Vol] 3.0 g/dL Normal [facility] Comment on above: Performed By: #### C MP #### [facility] [address] [place] [address] Dr. Jeffrey Thomas Glucose [Mass/Vol] 131 mg/dL Critically high 74-106 [facility] Comment on above: Performed By: #### C MP #### [facility] [address] [place] [address] Dr. Jeffrey Thomas Potassium [Moles/Vol] 4.0 mmol/L Normal 3.5-5.1 [facility] Comment on above: Performed By: #### C MP #### [facility] [address] [address] [address] Jeffrey Thomas Protein [Mass/Vol] 5.9 g/dL Critically low 6.4-8.2 Th [facility] Comment on above: Performed By: #### C MP #### [facility] [address] [address] [address] Jeffrey Thomas Sodium [Moles/Vol] 139 mmol/L Normal 136-145 [facility] Comment on above: Performed By: #### C MP #### [facility] [address] [address] [address] Jeffrey Thomas Urea nitrogen [Mass/Vol] 30.0 mg/dL Critically high 7.0-18.0 [facility] Comment on above: Performed By: #### C MP #### [facility] [address] [place] [address] Dr. Jeffrey Thomas Urea nitrogen/Creatinine [Mass ratio] 23.8 mg/mg Normal [facility] Comment on above: Performed By: #### C MP #### [facility] [address] [place] [address] Dr. Jeffrey Thomas Albumin [Mass/Vol] 3.1 g/dL Critically low 3.4-5.0 [facility] Comment on above: Performed By: #### C MP #### [facility] [address] [place] [address] Dr. Jeffrey Thomas Albumin/Globulin [Mass ratio] 1.0 {ratio} Normal [facility] Comment on above: Performed By: #### C MP #### [facility] [address] [place] [address] Dr. Jeffrey Thomas ALP [Catalytic activity/Vol] 119 U/L Critically high 46-116 [facility] Comment on above: Performed By: #### C MP #### [facility] [address] [place] [address] Dr. Jeffrey Thomas ALT [Catalytic activity/Vol] 13 U/L Critically low 14-59 [facility] Comment on above: Performed By: #### C MP #### [facility] [address] [place] [address] Dr. Jeffrey Thomas Anion gap [Moles/Vol] 11.9 mmol/L Normal [facility] Comment on above: Performed By: #### C MP #### [facility] [address] [place] [address] Dr. Jeffrey Thomas AST [Catalytic activity/Vol] 15 U/L Normal 15-37 [facility] Comment on above: Performed By: #### C MP #### [facility] [address] [place] [address] Dr. Jeffrey Thomas Bilirubin [Mass/Vol] 0.3 mg/dL Normal 0.2-1.0 [facility] Comment on above: Performed By: #### C MP #### [facility] [address] [address] [address] Jeffrey Thomas Calcium [Mass/Vol] 8.5 mg/dL Normal 8.5-10.1 [facility] Comment on above: Performed By: #### C MP #### [facility] [address] [address] [address] Jeffrey Thomas Chloride [Moles/Vol] 109 mmol/L Critically high 98-[address] [facility] Comment on above: Performed By: #### C MP #### [facility] [address] [address] [address] Jeffrey Thomas CO2 [Moles/Vol] 21.9 mmol/L Normal 21.0-32.0 [facility] Comment on above: Performed By: #### C MP #### [facility] [address] [address] [address] Jeffrey Thomas Creatinine [Mass/Vol] 1.18 mg/dL Critically high 0.55-1.02 [facility] Comment on above: Performed By: #### C MP #### [facility] [address] [address] [address] Jeffrey Thomas EGFR-AF TRISTANIAN 56 mL/min/1.73m2 Critically low >=60 [facility] Comment on above: Performed By: #### C MP #### [facility] [address] [address] [address] Jeffrey Thomas EGFR-NON AF TRISTANIAN 46 mL/min/1.73m2 Critically low >=[address] [facility] Comment on above: Performed By: #### C MP #### [facility] [address] [address] [address] Jeffrey Thomas Globulin (S) [Mass/Vol] 3.1 g/dL Normal [facility] Comment on above: Performed By: #### C MP #### [facility] [address] [address] [address] Jeffrey Thomas Glucose [Mass/Vol] 94 mg/dL Normal 74-106 [facility] Comment on above: Performed By: #### C MP #### [facility] [address] [address] [address] Jeffrey Thomas Potassium [Moles/Vol] 3.8 mmol/L Normal 3.5-5.1 [facility] Comment on above: Performed By: #### C MP #### [facility] [address] [address] [address] Jeffrey Thomas Protein [Mass/Vol] 6.2 g/dL Critically low 6.4-8.2 [facility] Comment on above: Performed By: #### C MP #### [facility] [address] [address] [address] Jeffrey Thomas Sodium [Moles/Vol] 139 mmol/L Normal 136-145 [facility] Comment on above: Performed By: #### C MP #### [facility] [address] [address] [address] Jeffrey Thomas Urea nitrogen [Mass/Vol] 27.0 mg/dL Critically high 7.0-18.0 [facility] Comment on above: Performed By: #### C MP #### [facility] [address] [address] [address] Jeffrey Thomas Urea nitrogen/Creatinine [Mass ratio] 22.9 mg/mg [facility] Comment on above: Performed By: #### C MP #### [facility] [address] [address] [address] Jeffrey Thomas Albumin [Mass/Vol] 3.3 g/dL Critically low 3.4-5.0 [facility] Comment on above: Performed By: #### A MM #### [facility] [address] [address] [address] Jeffrey Thomas Albumin/Globulin [Mass ratio] 1.0 {ratio} Normal [facility] Comment on above: Performed By: #### A MM #### [facility] [address] [place] [address] Dr. Jeffrey Thomas ALP [Catalytic activity/Vol] 127 U/L Critically high 46-116 [facility] Comment on above: Performed By: #### A MM #### [facility] [address] [address] [address] Jeffrey Thomas ALT [Catalytic activity/Vol] 10 U/L Critically low 14-59 [facility] Comment on above: Performed By: #### A MM #### [facility] [address] [place] [address] Dr. Jeffrey Thomas Anion gap [Moles/Vol] 12.9 mmol/L Normal Th e [facility] Comment on above: Performed By: #### A MM #### [facility] [address] [address] [address] Jeffrey Thomas AST [Catalytic activity/Vol] 20 U/L Normal 15-37 [facility] Comment on above: Performed By: #### A MM #### [facility] [address] [place] [address] Dr. Jeffrey Thomas Bilirubin [Mass/Vol] 0.3 mg/dL Normal 0.2-1.0 [facility] Comment on above: Performed By: #### A MM #### [facility] [address] [place] [address] Dr. Jeffrey Thomas Calcium [Mass/Vol] 8.9 mg/dL Normal 8.5-10.1 [facility] Comment on above: Performed By: #### A MM #### [facility] [address] [place] [address] Dr. Jeffrey Thomas Chloride [Moles/Vol] 106 mmol/L Normal 98-107 [facility] Comment on above: Performed By: #### A MM #### [facility] [address] [place] [address] Dr. Jeffrey Thomas CO2 [Moles/Vol] 21.8 mmol/L Normal 21.0-32.0 [facility] Comment on above: Performed By: #### A MM #### [facility] [address] [place] [address] Dr. Jeffrey Thomas Creatinine [Mass/Vol] 1.54 mg/dL Critically high 0.55-1.02 [facility] Comment on above: Performed By: #### A MM #### [facility] [address] [place] [address] Dr. Jeffrey Thomas EGFR-AF TRISTANIAN 41 mL/min/1.73m2 Critically low >=60 [facility] Comment on above: Performed By: #### A MM #### [facility] [address] [address] [address] Jeffrey Thomas EGFR-NON AF TRISTANIAN 34 mL/min/1.73m2 Critically low >=60 [facility] Comment on above: Performed By: #### A MM #### [facility] [address] [address] [address] Jeffrey Thomas Globulin (S) [Mass/Vol] 3.4 g/dL Normal [facility] Comment on above: Performed By: #### A MM #### [facility] [address] [address] [address] Jeffrey Thomas Glucose [Mass/Vol] 139 mg/dL Critically high 74-106 T [facility] Comment on above: Performed By: #### A MM #### [facility] [address] [address] [address] Jeffrey Thomas Potassium [Moles/Vol] 3.7 mmol/L Normal 3.5-5.1 [facility] Comment on above: Performed By: #### A MM #### [facility] [address] [address] [address] Jeffrey Thomas Protein [Mass/Vol] 6.7 g/dL Normal 6.4-8.2 [facility] Comment on above: Performed By: #### A MM #### [facility] [address] [address] [address] Jeffrey Thomas Sodium [Moles/Vol] 139 mmol/L Normal 136-145 [facility] Comment on above: Performed By: #### A MM #### [facility] [address] [address] [address] Jeffrey Thomas Urea nitrogen [Mass/Vol] 31.0 mg/dL Critically high 7.0-18.0 [facility] Comment on above: Performed By: #### A MM #### [facility] [address] [address] [address] Jeffrey Thomas Urea nitrogen/Creatinine [Mass ratio] 20.1 mg/mg Normal [facility] Comment on above: Performed By: #### A MM #### [facility] [address] [place] [address] Dr. Jeffrey Thomas PROTIMEon 12-12-2021 INR Coag (PPP) [Relative time] 1.13 {INR} Normal [facility] Comment on above: Performed By: #### T 4LC #### [facility] [address] [place] [address] Dr. Jeffrey Thomas INR GUIDELINES SEE BELOW Normal [facility] Comment on above: Result Comment: MERARI RED INR: 2.0 - 3.0 CONDITIONS NOT LISTED BELOW 2.5 - 3.5 FOR PROSTHETIC HEART VALVE REPLACEMENT 2.5 - 3.5 RECURRENT THROMBOSIS Performed By: #### T 4LC #### [facility] [address] [place] [address] Dr. Jeffrey Thomas PT Coag (PPP) [Time] 12.1 s Critically high 9.0-11.6 [facility] Comment on above: Performed By: #### T 4LC #### [facility] [address] [place] [address] Dr. Jeffrey Thomas TSHon 12-12-2021 TSH 0.729 uIU/mL Normal 0.358-3.740 [facility] Comment on above: Performed By: #### C MP #### [facility] [address] [place] [address] Dr. Jeffrey Thomas XR CHEST 1 Von [...] by: GUILLE RAY Date: 2021-12-11 23:48 Normal [facility] PT Coag (PPP) [Time]on 01-08 INR Coag (PPP) [Relative time] 1.5 {INR} <=5.0 [facility] Comment on above: The recommended ther apeutic INR range for most cardiac indications is 2.0-3.0 For high intensity therapy (i.e. mechanical heart valves), the recommended range is 2.5-3.5 Interpretation and review of laboratory results Abnormal [facility] PT Coag (Bld) [Time] 18.1 s High [facility] Basic metabolic 2000 panelon 01-07-2021 Calcium [Mass/Vol] 8.8 mg/dL Normal 8.5-10.6 [facility] Chloride [Moles/Vol] 107 mmol/L Normal 98-107 [facility] CO2 [Moles/Vol] 25 mmol/L Normal 21-32 [facility] Creatinine [Mass/Vol] 1.87 mg/dL High 0.55-1.02 [facility] Glucose [Mass/Vol] 96 mg/dL Normal 70-99 [facility] Potassium [Moles/Vol] 4.5 mmol/L Normal 3.5-5.1 [facility] Sodium [Moles/Vol] 141 mmol/L Normal 136-145 [facility] Urea nitrogen (BldV) [Mass/Vol] 27 mg/dL High 7.0-18.0 [facility] Urea nitrogen/Creatinine [Mass ratio] 14 mg/mg Normal [facility] Coronavirus (COVID-19/SARS-C oV-2) RAPIDon 01-07-2021 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 N Normal [facility] First test N Normal [facility] ICU N Normal [facility] Illness or injury onset date and time Normal [facility] Patient was hospitalized because of this condition Y Normal [facility] status N Normal [facility] Resides in congregate care setting N Normal [facility] SARS-CoV-2 (COVID-19) RNA REBECCA+probe Ql (Resp) Not detected Normal NDET [facility] Comment on above: Result Comment: This test was performed via the [employer] NOW COVID 19 assay and has been authorized by FDA under an Emergency Use Authorization (EUA). The assay is validated for nasopharyngeal (DUCK FARMER), nasal, and oropharyngeal (OP) direct swabs. The [...] www.cdc.gov/coronavirus. Symptomatic as defined by CDC N [facility] Gentamicin Trough Levelon Gentamicin trough [Mass/Vol] 1.0 mg/L Normal [facility] Comment on above: Result Comment: Refe rence range: 0.0 to 2.0 Unit: UG/ML PT Coag (PPP) [Time]on 01-07 INR Coag (Bld) [Relative time] 1.3 {INR} Normal [facility] Comment on above: [...] (PPP) [Time] 15.7 s High 11.9-14.6 [facility] Comment on above: Order Comment: Preho spitalization had reported chronic use of Coumadin which was held for surgery. Tobramycin random [Moles/Vol ]on 01-07-2021 Tobramycin [Mass/Vol] SEE SEPARATE REPORT Normal 0.5-1 .5 [facility] Comment on above: Result Comment: SEE NOTES REVIEW TAB FOR RESULTS Basic metabolic 2000 panelon 01-06-2021 Calcium [Mass/Vol] 8.6 mg/dL Normal 8.5-10.6 [facility] Chloride [Moles/Vol] 107 mmol/L Normal 98-107 [facility] CO2 [Moles/Vol] 24 mmol/L Normal 21-32 [facility] Creatinine [Mass/Vol] 1.82 mg/dL High 0.55-1.02 [facility] Glucose [Mass/Vol] 87 mg/dL Normal 70-99 [facility] Potassium [Moles/Vol] 4.8 mmol/L Normal 3.5-5.1 [facility] Sodium [Moles/Vol] 140 mmol/L Normal 136-145 [facility] Urea nitrogen (BldV) [Mass/Vol] 30 mg/dL High 7.0-18.0 [facility] Urea nitrogen/Creatinine [Mass ratio] 16 mg/mg Normal [facility] Hematocriton 01-06-2021 Hematocrit (Bld) [Volume fraction] 28.9 % Low 34.0-50.0 [facility] Hemoglobinon 01-06-2021 Hemoglobin (Bld) [Mass/Vol] 9.4 g/dL Low 11.5-17.0 [facility] Histopathology Requeston Relevant diagnostic tests/laboratory data Narrative SPECIMEN DESCRIPTION 1 LEFT KNEE TISSUE RESULT SEE SEPARATE REPORT RESULT SEE NOTES REVIEW TAB FOR RESULTS ROUTINE LAB Report Date: 01/06/2021 09:09:05 Collect Date: 01/03/2021 12:44:00 Normal [facility] PT Coag (PPP) [Time]on 01-06 INR Coag (Bld) [Relative time] 1.1 {INR} Normal [facility] Comment on above: [...] (PPP) [Time] 14.2 s Normal 11.9-14.6 [facility] Comment on above: Order Comment: Preho spitalization had reported chronic use of Coumadin which was held for surgery. Basic metabolic 2000 panelon 01-05-2021 Calcium [Mass/Vol] 8.1 mg/dL Low 8.5-10.6 [facility] Chloride [Moles/Vol] 108 mmol/L High 98-107 [facility] CO2 [Moles/Vol] 27 mmol/L Normal 21-32 [facility] Creatinine [Mass/Vol] 2.05 mg/dL High 0.55-1.02 [facility] Glucose [Mass/Vol] 91 mg/dL Normal 70-99 [facility] Potassium [Moles/Vol] 4.7 mmol/L Normal 3.5-5.1 [facility] Sodium [Moles/Vol] 141 mmol/L Normal 136-145 [facility] Urea nitrogen (BldV) [Mass/Vol] 36 mg/dL High 7.0-18.0 [facility] Urea nitrogen/Creatinine [Mass ratio] 18 mg/mg Normal [facility] CBC W Auto Differential pane l (Bld)on 01-05-2021 Basophils (Bld) [#/Vol] 0.1 thou/mcL Normal 0.0-0.2 [facility] Basophils/100 WBC (Bld) 0.9 % Normal 0-3 [facility] Differential cell count method Nom (Bld) AUTOMATED DIFFERENTIAL Normal [facility] Eosinophils (Bld) [#/Vol] 0.2 thou/mcL Normal 0.0-0.4 [facility] Eosinophils/100 WBC (Bld) 2.2 % Normal 0-7 [facility] Erythrocyte distribution width (RBC) [Entitic vol] 16.0 % High 11.7-15.0 [facility] Hematocrit (Bld) [Volume fraction] 21.4 % Low 34.0-50.0 [facility] Hemoglobin (Bld) [Mass/Vol] 6.8 g/dL Off scale low 11.5-17.0 [facility] Comment on above: Result Comment: RESU LTS VERIFIED AND CALLED TO/READ BACK BY ALFONSO HILARIO 10.6.21 @0559.BA Lymphocytes (Bld) [#/Vol] 0.9 thou/mcL Normal 0.7-4.5 [facility] Lymphocytes/100 WBC (Bld) 12.7 % Low 14-46 [facility] MCH (RBC) [Entitic mass] 27.2 Picograms Normal 27.0-34.0 [facility] MCHC (RBC) [Mass/Vol] 31.8 g/dL Low 32.0-36.0 [facility] MCV (RBC) [Entitic vol] 85.5 fL Normal 80-98 [facility] Monocytes (Bld) [#/Vol] 0.6 thou/mcL Normal 0.1-1.0 [facility] Monocytes/100 WBC (Bld) 8.1 % Normal 4-13 [facility] Neutrophils (Bld) [#/Vol] 5.7 thou/mcL Normal 1.5-7.8 [facility] Neutrophils/100 WBC (Bld) 76.1 % High 40-74 [facility] Platelet mean volume (Bld) [Entitic vol] 10.5 fL Normal 7.5-11.2 [facility] Platelets (Bld) [#/Vol] 141 thou/mcL Normal 140-415 [facility] RBC (Bld) [#/Vol] 2.50 x(10)6/mcL Low 3.80-5.[address] [facility] WBC (Bld) [#/Vol] 7.5 thou/mcL Normal 4.0-10.5 [facility] Gentamicin Trough Levelon Gentamicin trough [Mass/Vol] 3.9 mg/L Critically high [facility] Comment on above: Result Comment: Refe michelle range: 0.0 to 2.0 Unit: UG/ML (NOTE) Critical value(s) on tests gentt called to and read-back by clementine nuñez , at location [facility] by time called _01/05/21 12:20 Hematocriton 01-05-2021 Hematocrit (Bld) [Volume fraction] 27.2 % Low 34.0-50.0 [facility] Hemoglobinon 01-05-2021 Hemoglobin (Bld) [Mass/Vol] 8.8 g/dL Low 11.5-17.0 [facility] PT Coag (PPP) [Time]on 01-05 INR Coag (Bld) [Relative time] 1.1 {INR} Normal [facility] Comment on above: [...] Pathology studyon 01-05-2021 Case report TRINITY GODINEZ ([id number] YRS F [id number] RM/BD 0205 01 ORDERING PHYSICIAN: CALOS SMITH [...] cut surface is rogers-pink, soft and homogeneous. Expediter Service Order sections are submitted in block A1. (RS/1C/MS/RT) Gross examination was performed at [facility]. AJB:MEI 01/04/21 By: LICHA ZEPEDA M.D. (Electronic Signature) MICROSCOPIC: The technical component was performed at [facility], [address] [place] [address]. Microscopic examination was performed. Case resulted at [facility]. DIAGNOSIS: Left knee tissue, revision arthroplasty: -DENSE FIBROUS TISSUE WITH PATCHY CHRONIC INFLAMMATION, FOREIGN BODY GIANT CELL REACTION, AND OSSEOUS METAPLASIA. NOTE: Perivascular lymphocytic inflammation is mild and patchy. JH2:JH2:JH210/09/20 END OF REPORT [facility] Comment on above: END OF REPORT [facility] Prothrombin Timeon PT Coag (PPP) [Time] 14.5 s Normal 11.9-14.6 [facility] Comment on above: Order Comment: Preho spitalization had reported chronic use of Coumadin which was held for surgery. Rh Confirm Nom (Bld)on 01-05 ABO group Nom (Bld) A Normal [facility] Rh Nom (Bld) Positive Normal [facility] Tobramycin random [Moles/Vol ]on 01-05-2021 Tobramycin [Mass/Vol] SEE SEPARATE REPORT Normal 0.5-1 .5 [facility] Comment on above: Result Comment: SEE NOTES REVIEW TAB FOR RESULTS Vancomycin [Moles/Vol]on Vancomycin random [Mass/Vol] <3.5 Off scale low 10.0-50.0 [facility] Basic metabolic 2000 panelon 01-04-2021 Calcium [Mass/Vol] 8.5 mg/dL Normal 8.5-10.6 [facility] Chloride [Moles/Vol] 104 mmol/L Normal 98-107 [facility] CO2 [Moles/Vol] 26 mmol/L Normal 21-32 [facility] Creatinine [Mass/Vol] 2.32 mg/dL High 0.55-1.02 [facility] Glucose [Mass/Vol] 90 mg/dL Normal 70-99 [facility] Potassium [Moles/Vol] 5.7 mmol/L Critically high 3.5-5.1 [facility] Comment on above: Result Comment: RESU LTS VERIFIED AND CALLED TO/READ BACK BY ABRAM MCQUEEN .08.20 @ 1256. BA Sodium [Moles/Vol] 138 mmol/L Normal 136-145 [facility] Urea nitrogen (BldV) [Mass/Vol] 45 mg/dL High 7.0-18.0 [facility] Urea nitrogen/Creatinine [Mass ratio] 19 mg/mg Normal [facility] CBC W Auto Differential pane l (Bld)on 01-04-2021 Basophils (Bld) [#/Vol] 0.0 thou/mcL Normal 0.0-0.2 [facility] Basophils/100 WBC (Bld) 0.3 % Normal 0-3 [facility] Differential cell count method Nom (Bld) AUTOMATED DIFFERENTIAL Normal [facility] Eosinophils (Bld) [#/Vol] 0.0 thou/mcL Normal 0.0-0.4 [facility] Eosinophils/100 WBC (Bld) 0.2 % Normal 0-7 [facility] Erythrocyte distribution width (RBC) [Entitic vol] 15.5 % High 11.7-15.0 [facility] Hematocrit (Bld) [Volume fraction] 23.5 % Low 34.0-50.0 [facility] Hemoglobin (Bld) [Mass/Vol] 7.5 g/dL Low 11.5-17.0 [facility] Lymphocytes (Bld) [#/Vol] 1.0 thou/mcL Normal 0.7-4.5 [facility] Lymphocytes/100 WBC (Bld) 13.3 % Low 14-46 [facility] MCH (RBC) [Entitic mass] 27.4 Picograms Normal 27.0-34.0 [facility] MCHC (RBC) [Mass/Vol] 32.0 g/dL Normal 32.0-36.0 [facility] MCV (RBC) [Entitic vol] 85.5 fL Normal 80-98 [facility] Monocytes (Bld) [#/Vol] 0.6 thou/mcL Normal 0.1-1.0 [facility] Monocytes/100 WBC (Bld) 7.5 % Normal 4-13 [facility] Neutrophils (Bld) [#/Vol] 5.8 thou/mcL Normal 1.5-7.8 [facility] Neutrophils/100 WBC (Bld) 78.7 % High 40-74 [facility] Platelet mean volume (Bld) [Entitic vol] 10.5 fL Normal 7.5-11.2 [facility] Platelets (Bld) [#/Vol] 167 thou/mcL Normal 140-415 [facility] RBC (Bld) [#/Vol] 2.75 x(10)6/mcL Low 3.80-5.[address] [facility] WBC (Bld) [#/Vol] 7.3 thou/mcL Normal 4.0-10.5 [facility] PT Coag (PPP) [Time]on 01-04 INR Coag (Bld) [Relative time] 1.0 {INR} Normal [facility] Comment on above: [...] (PPP) [Time] 13.6 s Normal 11.9-14.6 [facility] Comment on above: Order Comment: Preho spitalization [...] mid left lung, likely atelectasis or scarring. [facility] thanks you for the opportunity to care for your patient. Workstation ID: [id number] FINAL REPORT Dictated By: Garo Albarado MD 01/04/2021 11:41 Assigned Physician: Garo Albarado MD Reviewed and Electronically Signed By: Garo Albarado MD 01/04/2021 11:45 Transcribed by: STEW 01/04/2021 11:41 Technologist: [facility] Garo Albarado MD - 01/08/2021 EXAMINATION [...] 11:45 Transcribed by: STEW 01/04/2021 11:41 Technologist: [facility] Radiology Study observation (narrative) [employer] XR CHEST 1 VIEWOrdered By: Pawan Albarado on 01-04-2021 [employer] Work Phone: XR Chest 1 Viewon 01-04-2021 [...] by: STEW 01/04/2021 11:41 Technologist: RAQUEL Normal [facility] Blood type and Indirect anti body screen panel (Bld)on 01-03-2021 Blood group antibody screen Ql Negative Normal NEG [facility] Rh Nom (Bld) Positive Normal [facility] Cell Count Body Fluidon Cell count panel (Body fld) COLOR, FLUID RED Normal [facility] Culture Aerobicon 01-03-2021 Bacteria identified Aer cx Nom (Unsp spec) [facility] Microbiology PROCEDURE: Culture Aerobic SOURCE: Tissue BODY [...] NO EPITHELIALS SEEN, NO ORGANISMS SEEN Normal [facility] Comment on above: Performed By: #### 6 34-6 ####[address] Bacteria identified Aer cx Nom (Unsp spec) [facility] Microbiology PROCEDURE: Culture Aerobic SOURCE: Tissue BODY [...] NO EPITHELIALS SEEN, NO ORGANISMS SEEN Normal [facility] Comment on above: Performed By: #### 6 34-6 ####[address] [address] [place], [place] Bacteria identified Aer cx Nom (Unsp spec) [facility] Microbiology PROCEDURE: Culture Aerobic SOURCE: Tissue BODY [...] NO EPITHELIALS SEEN, NO ORGANISMS SEEN Normal [facility] Comment on above: Performed By: #### 6 34-6 ####[address] Bacteria identified Aer cx Nom (Unsp spec) [facility] Microbiology PROCEDURE: Culture Aerobic SOURCE: Tissue BODY [...] NO EPITHELIALS SEEN, NO ORGANISMS SEEN Normal [facility] Comment on above: Performed By: #### 6 34-6 ####[address] Culture Anaerobicon 01-04-20 Bacteria identified Anaer cx Nom (Unsp spec) [facility] Microbiology PROCEDURE: Culture Anaerobic SOURCE: Tissue BODY [...] 23:34 EDT CONTRIBUTOR_SYSTEM, CO_PN CULTURE IN PROGRESS [facility] Comment on above: Performed By: #### 6 35-3 ####[address] Bacteria identified Anaer cx Nom (Unsp spec) [facility] Microbiology PROCEDURE: Culture Anaerobic SOURCE: Tissue BODY [...] 23:34 EDT CONTRIBUTOR_SYSTEM, CO_PN CULTURE IN PROGRESS [facility] Comment on above: Performed By: #### 6 35-3 ####[address] Bacteria identified Anaer cx Nom (Unsp spec) [facility] Microbiology PROCEDURE: Culture Anaerobic SOURCE: Tissue BODY [...] 23:34 EDT CONTRIBUTOR_SYSTEM, CO_PN CULTURE IN PROGRESS [facility] Comment on above: Performed By: #### 6 35-3 ####[address] Bacteria identified Anaer cx Nom (Unsp spec) [facility] Microbiology PROCEDURE: Culture Anaerobic SOURCE: Tissue BODY [...] 23:34 EDT CONTRIBUTOR_SYSTEM, CO_PN CULTURE IN PROGRESS [facility] Comment on above: Performed By: #### 6 35-3 ####[address] Bacteria identified Anaer cx Nom (Unsp spec) [facility] Microbiology PROCEDURE: Culture Anaerobic SOURCE: Joint Fl [...] EDT CONTRIBUTOR_SYSTEM, CO_PN CULTURE IN PROGRESS Normal [facility] Comment on above: Performed By: #### 6 35-3 ####[address] [address] [place] Culture Funguson 01-03-2021 Fungus identified Cx Nom (Unsp spec) [facility] Microbiology PROCEDURE: Culture Fungus SOURCE: Tissue BODY [...] CULTURE WILL BE HELD FOR 1-4 WEEKS [facility] Comment on above: Performed By: #### 5 80-1 ####[address] Fungus identified Cx Nom (Unsp spec) [facility] Microbiology PROCEDURE: Culture Fungus SOURCE: Tissue BODY [...] CULTURE WILL BE HELD FOR 1-4 WEEKS [facility] Comment on above: Performed By: #### 5 80-1 ####[address] Fungus identified Cx Nom (Unsp spec) [facility] Microbiology PROCEDURE: Culture Fungus SOURCE: Tissue BODY [...] CULTURE WILL BE HELD FOR 1-4 WEEKS [facility] Comment on above: Performed By: #### 5 80-1 ####[address] Fungus identified Cx Nom (Unsp spec) [facility] Microbiology PROCEDURE: Culture Fungus SOURCE: Tissue BODY [...] WILL BE HELD FOR 1-4 WEEKS Normal [facility] Comment on above: Performed By: #### 5 80-1 ####[address] Fungus identified Cx Nom (Unsp spec) [facility] Microbiology PROCEDURE: Culture Fungus SOURCE: Joint Fl [...] WILL BE HELD FOR 1-4 WEEKS Normal [facility] Comment on above: Performed By: #### 5 80-1 ####[address] Hematocriton 01-03-2021 Hematocrit (Bld) [Volume fraction] 31.6 % Low 34.0-50.0 [facility] Hemoglobinon 01-03-2021 Hemoglobin (Bld) [Mass/Vol] 10.4 g/dL Low 11.5-17.0 [facility] OR Nursingon 01-03-2021 OR Nursing Normal [facility] PACU I Nursingon 01-03-2021 PACU I Nursing CO NA PACU I Nursing Record Summary Primary Physician: Calos Smith Jr, MD Finalized Date/Time: 01/03/21 15:55:58 Pt. Name: TRINITY GODINEZ Pawan Mckeon/Sex: 1955 Female Med Rec #: [id number] Physician: Calos Smith Jr, MD Financial #: [id number] Pt. Type: I Room/Bed: / Admit/Disch: 01/03/21 09:09:00 - Institution: [facility] NA OR Main PACU I Case Times Entry 1 In PACU I 01/03/21 14:45:00 Ready for PACU I 01/03/21 15:54:00 Discharge Discharge from PACU 01/03/21 15:54:00 PACU I Discharge NA I Delay Reason Last Modified By: Taryn Leonrad RN 01/03/21 15:55:55 CO NA OR Main PACU I Case Attendees Entry 1 Case Attendee Taryn Leonard RN RN Last Modified By: Taryn Leonard RN 01/03/21 14:44:54 Finalized By: Taryn Leonard RN Document Signatures Signed By: Taryn Leonard RN 01/03/21 15:55 Normal [facility] PT Coag (PPP) [Time]on 01-03 INR Coag (Bld) [Relative time] 1.1 {INR} Normal [facility] Comment on above: Result Comment: DURI [...] TRINITY GODINEZ/Sex: 1955 Female Med Rec #: [id number] Physician: Calos Smith Jr, MD Financial #: [id number] Pt. Type: I Room/Bed: / Admit/Disch: 01/03/21 [...] Zoya Hinson RN, I 01/03/21 12:12 Normal [facility] Prothrombin Timeon 1 PT Coag (PPP) [Time] 13.7 s Normal 11.9-14.6 [facility] Surgical Pathology Final Rep tom 01-03-2021 Pathology study TRINITY GODINEZ [id number] YRS F [id number] /BD [id number] 01 ORDERING PHYSICIAN: CALOS SMITH [...] cut surface is rogers-pink, soft and homogeneous. Expediter Service Order sections are submitted in block A1. (RS/1C/MS/RT) Gross examination was performed at [facility]. AJB:MEI 01/04/21 By: LICHA ZEPEDA M.D. (Electronic Signature) MICROSCOPIC: The technical component was performed at [facility], [address] [place] [address]. Microscopic examination was performed. Case resulted at [facility]. DIAGNOSIS: Left knee tissue, revision arthroplasty: -DENSE FIBROUS TISSUE WITH PATCHY CHRONIC INFLAMMATION, FOREIGN BODY GIANT CELL REACTION, AND OSSEOUS METAPLASIA. NOTE: Perivascular lymphocytic inflammation is mild and patchy. JH2:JH2:JH21 END OF REPORT END OF REPORT Normal [facility] XR KNEE 1-2 VIEWS LTon 01-03 LEFT [...] Transcribed by: STEW 01/03/2021 15:49 Technologist: EILEEN [facility] Radiology Study observation (narrative) [employer] XR KNEE 1-2 VIEWS LTOrdered By: Kerri Reyna on 01-03-2021 [employer] Work Phone: XR Knee 1-2 Views LTon [...] Left knee arthroplasty revision as detailed above. [place] thanks you for the opportunity to care for your patient. Workstation ID: [id number] - [id number] FINAL REPORT Dictated By: Kerri Reyna MD 01/03/2021 15:49 Assigned Physician: Kerri Reyna MD Reviewed and Electronically Signed By: Kerri Reyna MD 01/03/2021 15:53 Transcribed by: STEW 01/03/2021 15:49 Technologist: EILEEN Normal [facility] aPTT Coag (Bld) [Time]on aPTT Coag (PPP) [Time] 25.0 s Normal 23.2-34.6 [facility] Histopathology Requeston Relevant diagnostic tests/laboratory data Narrative SPECIMEN DESCRIPTION 1 LEFT KNEE RESULT SEE SEPARATE REPORT RESULT SEE NOTES REVIEW TAB FOR RESULTS ROUTINE LAB Report Date: 11/24/2020 05:51:32 Collect Date: 11/19/2020 13:56:00 Normal [facility] Basic metabolic 2000 panelon 11-22-2020 Calcium [Mass/Vol] 8.0 mg/dL Low 8.5-10.6 [facility] Chloride [Moles/Vol] 103 mmol/L Normal 98-107 [facility] CO2 [Moles/Vol] 29 mmol/L Normal 21-32 [facility] Creatinine [Mass/Vol] 1.09 mg/dL High 0.55-1.02 [facility] Glucose [Mass/Vol] 93 mg/dL Normal 70-99 [facility] Potassium [Moles/Vol] 4.4 mmol/L Normal 3.5-5.1 [facility] Sodium [Moles/Vol] 138 mmol/L Normal 136-145 [facility] Urea nitrogen (BldV) [Mass/Vol] 18 mg/dL Normal 7.0-18.0 [facility] Urea nitrogen/Creatinine [Mass ratio] 17 mg/mg Normal [facility] CBC W Auto Differential pane l (Bld)on 11-22-2020 Basophils (Bld) [#/Vol] 0.0 thou/mcL Normal 0.0-0.2 [facility] Basophils/100 WBC (Bld) 0.7 % Normal 0-3 [facility] Differential cell count method Nom (Bld) AUTOMATED DIFFERENTIAL Normal [facility] Eosinophils (Bld) [#/Vol] 0.2 thou/mcL Normal 0.0-0.4 [facility] Eosinophils/100 WBC (Bld) 3.5 % Normal 0-7 [facility] Erythrocyte distribution width (RBC) [Entitic vol] 14.3 % Normal 11.7-15.0 [facility] Hematocrit (Bld) [Volume fraction] 24.8 % Low 34.0-50.0 [facility] Hemoglobin (Bld) [Mass/Vol] 8.2 g/dL Low 11.5-17.0 [facility] Lymphocytes (Bld) [#/Vol] 1.1 thou/mcL Normal 0.7-4.5 [facility] Lymphocytes/100 WBC (Bld) 17.5 % Normal 14-46 [facility] MCH (RBC) [Entitic mass] 29.9 Picograms Normal 27.0-34.0 [facility] MCHC (RBC) [Mass/Vol] 33.0 g/dL Normal 32.0-36.0 [facility] MCV (RBC) [Entitic vol] 90.7 fL Normal 80-98 [facility] Monocytes (Bld) [#/Vol] 0.8 thou/mcL Normal 0.1-1.0 [facility] Monocytes/100 WBC (Bld) 13.0 % Normal 4-13 [facility] Neutrophils (Bld) [#/Vol] 4.2 thou/mcL Normal 1.5-7.8 [facility] Neutrophils/100 WBC (Bld) 65.3 % Normal 40-74 [facility] Platelet mean volume (Bld) [Entitic vol] 10.2 fL Normal 7.5-11.2 [facility] Platelets (Bld) [#/Vol] 176 thou/mcL Normal 140-415 [facility] RBC (Bld) [#/Vol] 2.74 x(10)6/mcL Low 3.80-5.60 [facility] WBC (Bld) [#/Vol] 6.5 thou/mcL Normal 4.0-10.5 [facility] Coronavirus (COVID-19/SARS-C oV-2) RAPIDon 11-22-2020 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 N Normal [facility] First test N Normal [facility] ICU N Normal [facility] Illness or injury onset date and time Normal [facility] Patient was hospitalized because of this condition Y Normal [facility] status N Normal [facility] Resides in congregate care setting N Normal [facility] SARS-CoV-2 (COVID-19) RNA REBECCA+probe Ql (Resp) Not detected Normal NDET [facility] Comment on above: Result Comment: This test was performed via the [employer] NOW COVID 19 assay and has been authorized by FDA under an Emergency Use Authorization (EUA). The assay is validated for nasopharyngeal (DUCK FARMER), nasal, and oropharyngeal (OP) direct swabs. The [...] Symptomatic as defined by CDC N Normal [facility] OR Nursingon 11-22-2020 OR Nursing Normal [facility] PT Coag (PPP) [Time]on 11-22 INR Coag (Bld) [Relative time] 1.4 {INR} Normal [facility] Comment on above: Result Comment: NOEMÍ GOMEZ [...] room and take this document with you. [facility] 11/22/20 14:48 [address] [place] [address] PATIENT INFORMATION Name: TRINITY GODINEZ Address: [address] [place], [place] [address] Age: 65 Years Phone: [phone] : 1955 12:00 MRN: [id number] Sex: Female Race: White Ethnicity: Not Hispan/Lat Admitted From: Clinic or [facility] Medical Service: Orthopedic Surgery Nurse Unit/Bed: (CO) 2N 0221-01 Admit Date: 11/19/2020 09:38 PCP: Levi Shine MD PHYSICIANS INVOLVED WITH CARE ------ Attending Physicians: Luis Quinn MD , Calos - Orthopaedic Surg Admitting Physician: Luis Quinn MD , Calos - Orthopaedic Surg Primary Care Physician:Levi Shine MD,[facility], - Consults: Shailesh VEGA , Grabiel Maciel - Infectious Disease Andrew VEGA , Jose Carrasco - Internal Medicine Mario VEGA , Trey E - Internal Medicine Heather, CHAVO - Internal Medicine Angeles VEGA , Kenzie W - Internal Medicine FOLLOW-UP APPOINTMENTS: Provider: Specialty: Address: Date: Calos Smith Jr, MD Orthopaedic Surg [address] [facility] [address] [facility] [phone] (1) Three Weeks Comment: Call for an Appointment AND ANY QUESTIONS OR CONCERNS Provider: Specialty: Address: Date: Grabiel Hicks MD Infectious Disease [address] [facility] [address] (1) Call for an Appointment Comment: 1) call soon for an appointment with Dr. Hicks in 4-5 weeks, 2) you will be on IV antibiotic until the time of your reimplantation, 3) every Sunday the nursing staff will collect blood work (CBC,SR,CRP,Creat, Vanco Trough) and fax to Dr. Hicks ([phone]), 4) call sooner for fever, chills, nausea, vomiting, diarrhea, rash, pain in your PICC arm or worsening condtion of your wound. Provider: Specialty: Address: Date: Levi Shine MD [facility] [address] [facility] [address] (1) Follow-up as needed Provider: Specialty: Address: Date: [facility] Follow-up as needed Comment: [place] [facility] [phone] ALLERGIES: NSAIDs : Reaction:Anaphylactic reaction Ancef : [...] doses are changed, or new medications (including [id number] products) are added. Ask your doctor if [...] CBC,SR,Creat,CRP, Vanco Trough, fax to Dr. Hicks [phone] 3)IV ATB UNTIL reimplant 4)Call Dr. Hicks [...] Insomnia/Sleep. T (more content not included)... Normal [facility] Prothrombin Timeon PT Coag (PPP) [Time] 16.9 s High 11.9-14.6 [facility] Vancomycin [Moles/Vol]on Vancomycin random [Mass/Vol] 28.3 ZZ Normal 10.0-50.0 [facility] Basic metabolic 2000 panelon 11-21-2020 Calcium [Mass/Vol] 8.2 mg/dL Low 8.5-10.6 [facility] Chloride [Moles/Vol] 106 mmol/L Normal 98-107 [facility] CO2 [Moles/Vol] 29 mmol/L Normal 21-32 [facility] Creatinine [Mass/Vol] 1.07 mg/dL High 0.55-1.02 [facility] Glucose [Mass/Vol] 94 mg/dL Normal 70-99 [facility] Potassium [Moles/Vol] 4.3 mmol/L Normal 3.5-5.1 [facility] Sodium [Moles/Vol] 141 mmol/L Normal 136-145 [facility] Urea nitrogen (BldV) [Mass/Vol] 18 mg/dL Normal 7.0-18.0 [facility] Urea nitrogen/Creatinine [Mass ratio] 17 mg/mg Normal [facility] CBC W Auto Differential pane l (Bld)on 11-21-2020 Basophils (Bld) [#/Vol] 0.0 thou/mcL Normal 0.0-0.2 [facility] Basophils/100 WBC (Bld) 0.7 % Normal 0-3 [facility] Differential cell count method Nom (Bld) AUTOMATED DIFFERENTIAL Normal [facility] Eosinophils (Bld) [#/Vol] 0.1 thou/mcL Normal 0.0-0.4 [facility] Eosinophils/100 WBC (Bld) 1.6 % Normal 0-7 [facility] Lymphocytes (Bld) [#/Vol] 1.3 thou/mcL Normal 0.7-4.5 [facility] Lymphocytes/100 WBC (Bld) 18.7 % Normal 14-46 [facility] Monocytes (Bld) [#/Vol] 0.8 thou/mcL Normal 0.1-1.0 [facility] Monocytes/100 WBC (Bld) 12.1 % Normal 4-13 [facility] Neutrophils (Bld) [#/Vol] 4.6 thou/mcL Normal 1.5-7.8 [facility] Neutrophils/100 WBC (Bld) 66.9 % Normal 40-74 [facility] Erythrocyte distribution width (RBC) [Entitic vol] 14.6 % Normal 11.7-15.0 [facility] Hematocrit (Bld) [Volume fraction] 25.9 % Low 34.0-50.0 [facility] Hemoglobin (Bld) [Mass/Vol] 8.5 g/dL Low 11.5-17.0 [facility] MCH (RBC) [Entitic mass] 29.8 Picograms Normal 27.0-34.0 [facility] MCHC (RBC) [Mass/Vol] 32.8 g/dL Normal 32.0-36.0 [facility] MCV (RBC) [Entitic vol] 90.9 fL Normal 80-98 [facility] Platelet mean volume (Bld) [Entitic vol] 9.9 fL Normal 7.5-11.2 [facility] Platelets (Bld) [#/Vol] 181 thou/mcL Normal 140-415 [facility] RBC (Bld) [#/Vol] 2.85 x(10)6/mcL Low 3.80-5.[address] [facility] WBC (Bld) [#/Vol] 7.0 thou/mcL Normal 4.0-10.5 [facility] PT Coag (PPP) [Time]on 11-21 INR Coag (Bld) [Relative time] 1.4 {INR} Normal [facility] Comment on above: Result Comment: NOEMÍ GOMEZ THE INDUCTION PHASE OF ORAL ANTICOAGULATION, THE INR MAY NOT REFLECT THE ANTICOAGULANT STATUS OF THE PATIENT. THERAPEUTIC RANGES FOR INR'S ARE: MOST CLINICAL SITUATIONS: INR 2.0-3.0 MECHANICAL PROSTHETIC VALVES: INR 2.5-3.5 CRITICAL: INR 5.0 Prothrombin Timeon PT Coag (PPP) [Time] 17.1 s High 11.9-14.6 [facility] Basic metabolic 2000 panelon 11-20-2020 Calcium [Mass/Vol] 8.3 mg/dL Low 8.5-10.6 [facility] Chloride [Moles/Vol] 104 mmol/L Normal 98-107 [facility] CO2 [Moles/Vol] 24 mmol/L Normal 21-32 [facility] Creatinine [Mass/Vol] 0.97 mg/dL Normal 0.55-1.02 [facility] Glucose [Mass/Vol] 126 mg/dL High 70-99 [facility] Potassium [Moles/Vol] 4.4 mmol/L Normal 3.5-5.1 [facility] Sodium [Moles/Vol] 139 mmol/L Normal 136-145 [facility] Urea nitrogen (BldV) [Mass/Vol] 18 mg/dL Normal 7.0-18.0 [facility] Urea nitrogen/Creatinine [Mass ratio] 19 mg/mg Normal [facility] CBC W Auto Differential pane l (Bld)on 11-20-2020 Basophils (Bld) [#/Vol] 0.0 thou/mcL Normal 0.0-0.2 [facility] Basophils/100 WBC (Bld) 0.2 % Normal 0-3 [facility] Differential cell count method Nom (Bld) AUTOMATED DIFFERENTIAL Normal [facility] Eosinophils (Bld) [#/Vol] 0.0 thou/mcL Normal 0.0-0.4 [facility] Eosinophils/100 WBC (Bld) 0.0 % Normal 0-7 [facility] Lymphocytes (Bld) [#/Vol] 0.9 thou/mcL Normal 0.7-4.5 [facility] Lymphocytes/100 WBC (Bld) 9.1 % Low 14-46 [facility] Monocytes (Bld) [#/Vol] 0.9 thou/mcL Normal 0.1-1.0 [facility] Monocytes/100 WBC (Bld) 9.2 % Normal 4-13 [facility] Neutrophils (Bld) [#/Vol] 7.8 thou/mcL Normal 1.5-7.8 [facility] Neutrophils/100 WBC (Bld) 81.5 % High 40-74 [facility] Erythrocyte distribution width (RBC) [Entitic vol] 14.7 % Normal 11.7-15.0 [facility] Hematocrit (Bld) [Volume fraction] 30.7 % Low 34.0-50.0 [facility] Hemoglobin (Bld) [Mass/Vol] 10.2 g/dL Low 11.5-17.0 [facility] MCH (RBC) [Entitic mass] 30.3 Picograms Normal 27.0-34.0 [facility] MCHC (RBC) [Mass/Vol] 33.3 g/dL Normal 32.0-36.0 [facility] MCV (RBC) [Entitic vol] 90.9 fL Normal 80-98 [facility] Platelet mean volume (Bld) [Entitic vol] 11.1 fL Normal 7.5-11.2 [facility] Platelets (Bld) [#/Vol] 246 thou/mcL Normal 140-415 [facility] RBC (Bld) [#/Vol] 3.38 x(10)6/mcL Low 3.80-5.[address] [facility] WBC (Bld) [#/Vol] 9.5 thou/mcL Normal 4.0-10.5 [facility] PT Coag (PPP) [Time]on 11-20 INR Coag (Bld) [Relative time] 1.0 {INR} Normal [facility] Comment on above: Result Comment: NOEMÍ GOMEZ THE INDUCTION PHASE OF ORAL ANTICOAGULATION, THE INR MAY NOT REFLECT THE ANTICOAGULANT STATUS OF THE PATIENT. THERAPEUTIC RANGES FOR INR'S ARE: MOST CLINICAL SITUATIONS: INR 2.0-3.0 MECHANICAL PROSTHETIC VALVES: INR 2.5-3.5 CRITICAL: INR 5.0 Prothrombin Timeon PT Coag (PPP) [Time] 13.6 s Normal 11.9-14.6 [facility] Anesthesia Recordon 11-20-19 Anesthesia Record Patient: TRINITY GODINEZ MRN: [id number] Age: 65 years Sex: Female : 1955 Associated Diagnoses: None Author: Angel Wyatt MD Procedure Time Out Center Protocol: patient identity verified, site verified, side verified, procedure to be done verified, patient position verified. REGIONAL ANESTHESIA PROCEDURE Procedure date and begin time: Peripheral nerve block. Procedure date and end time: See nursing notes. Performed by: Angel Wyatt MD. Assisted by: no assistant golf coach. Informed consent: signed by patient. Technique: Peripheral [...] Diagnosis Preoperative Diagnosis: Postoperative Diagnosis: . Normal [facility] Culture Aerobicon 11-19-2020 Bacteria identified Aer cx Nom (Unsp spec) [facility] Microbiology PROCEDURE: Culture Aerobic SOURCE: Tissue BODY [...] NO EPITHELIALS SEEN, NO ORGANISMS SEEN Normal [facility] Comment on above: Performed By: #### 6 34-6 ####[facility] [place], [place] Bacteria identified Aer cx Nom (Unsp spec) [facility] Microbiology PROCEDURE: Culture Aerobic SOURCE: Tissue BODY [...] POLYS RARE EPIS NO ORGANISMS SEEN Normal [facility] Comment on above: Performed By: #### 6 34-6 ####[address] Bacteria identified Aer cx Nom (Unsp spec) [facility] Microbiology PROCEDURE: Culture Aerobic SOURCE: Tissue BODY [...] POLYS No Epithelials NO ORGANISMS SEEN Normal [facility] Comment on above: Performed By: #### 6 34-6 ####[address] Bacteria identified Aer cx Nom (Unsp spec) [facility] Microbiology PROCEDURE: Culture Aerobic SOURCE: Tissue BODY [...] POLYS No Epithelials NO ORGANISMS SEEN Normal [facility] Comment on above: Performed By: #### 6 34-6 ####[address] Culture Anaerobicon 11-20-19 21 Bacteria identified Anaer cx Nom (Unsp spec) [facility] Microbiology PROCEDURE: Culture Anaerobic SOURCE: Tissue BODY [...] EDT CONTRIBUTOR_SYSTEM, CO_PN CULTURE IN PROGRESS Normal [facility] Comment on above: Performed By: #### 6 35-3 ####[address] Bacteria identified Anaer cx Nom (Unsp spec) [facility] Microbiology PROCEDURE: Culture Anaerobic SOURCE: Tissue BODY [...] 20:36 EDT CONTRIBUTOR_SYSTEM, CO_PN CULTURE IN PROGRESS [facility] Comment on above: Performed By: #### 6 35-3 ####[place] [address] [place], [place] Bacteria identified Anaer cx Nom (Unsp spec) [facility] Microbiology PROCEDURE: Culture Anaerobic SOURCE: Tissue BODY [...] 20:36 EDT CONTRIBUTOR_SYSTEM, CO_PN CULTURE IN PROGRESS [facility] Comment on above: Performed By: #### 6 35-3 ####[address] Bacteria identified Anaer cx Nom (Unsp spec) [facility] Microbiology PROCEDURE: Culture Anaerobic SOURCE: Tissue BODY [...] 20:36 EDT CONTRIBUTOR_SYSTEM, CO_PN CULTURE IN PROGRESS [facility] Comment on above: Performed By: #### 6 35-3 ####[place] [address] [place], [place] Culture Funguson 11-19-2020 Fungus identified Cx Nom (Unsp spec) [facility] Microbiology PROCEDURE: Culture Fungus SOURCE: Tissue BODY [...] CULTURE WILL BE HELD FOR 1-4 WEEKS [facility] Comment on above: Performed By: #### 5 80-1 ####[address] Fungus identified Cx Nom (Unsp spec) [facility] Microbiology PROCEDURE: Culture Fungus SOURCE: Tissue BODY [...] WILL BE HELD FOR 1-4 WEEKS Normal [facility] Comment on above: Performed By: #### 5 80-1 ####[place] [address] [place], [place] Fungus identified Cx Nom (Unsp spec) [facility] Microbiology PROCEDURE: Culture Fungus SOURCE: Tissue BODY [...] CULTURE WILL BE HELD FOR 1-4 WEEKS [facility] Comment on above: Performed By: #### 5 80-1 ####[place] [address] [place], [place] Fungus identified Cx Nom (Unsp spec) [facility] Microbiology PROCEDURE: Culture Fungus SOURCE: Tissue BODY [...] WILL BE HELD FOR 1-4 WEEKS Normal [facility] Comment on above: Performed By: #### 5 80-1 ####[place] [address] [place], [place] PACU I Nursingon 11-19-2020 PACU I Nursing CO NA PACU I Nursing Record Summary Primary Physician: Calos Smith Jr, MD Finalized Date/Time: 11/19/20 18:19:26 Pt. Name: TRINITY GODINEZ/Sex: 1955 Female Med Rec #: [id number] Physician: Calos Smith Jr, MD Financial #: [id number] Pt. Type: I Room/Bed: / Admit/Disch: 11/19/20 [...] By: Teresita Franco RN 11/19/20 18:19 Normal [facility] PreOp Nursingon 11-19-2020 PreOp Nursing CO NA PreOp Nursing Record Summary Primary Physician: Calos Smith Jr, MD Finalized Date/Time: 11/19/20 13:09:57 Pt. Name: TRINITY GODINEZ/Sex: 1955 Female Med Rec #: [id number] Physician: Calos Smith Jr, MD Financial #: [id number] Pt. Type: I Room/Bed: / Admit/Disch: 11/19/20 [...] By: Cortes Mcclain RN 11/19/20 13:09 Normal [facility] Surgical Pathology Final Rep tom 11-19-2020 Pathology study TRINITY GODINEZ [id number] [id number] F [id number] / [id number] ORDERING PHYSICIAN: CALOS SMITH [...] cut surface is rogers-pink, soft and homogeneous. [facility] Service Order sections are submitted in block (A1). (RS/1C/MS/RT) Gross examination was performed at [facility]. AJB:ASPEN 11/22/20 By: LICHA ZEPEDA M.D. (Electronic Signature) MICROSCOPIC: The technical component was performed at [facility], [address] [place] [address]. Microscopic examination was performed. Case resulted at [facility]. 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 NOTE: There is no significant perivascular lymphocytic inflammation. JH2:JH2:JH208/ END OF REPORT END OF REPORT Normal [facility] XR Knee 1-2 Views LTon 11-19 XR [...] is present. Anterior skin elvira are noted. [place] thanks you for the opportunity to care for your patient. Workstation ID: [id number] FINAL REPORT Dictated By: Abdias Morejon MD 11/19/2020 16:54 Assigned Physician: Abdias Morejon MD Reviewed and Electronically Signed By: Abdias Morejon MD 11/19/2020 16:56 Transcribed by: STEW 11/19/2020 16:54 Technologist: BASIL [place] [facility] PreOp Nursingon 11-18-2020 PreOp Nursing CO NA PreOp Nursing Record Summary Primary Physician: Calos Smith Jr, MD Finalized Date/Time: 11/18/20 15:01:45 Pt. Name: TRINITY GODINEZ/Sex: 1955 Female Med Rec #: [id number] Physician: Calos Smith Jr, MD Financial #: [id number] Pt. Type: I Room/Bed: / Admit/Disch: 11/17/20 [...] By: Deisi Wu RN 11/18/20 15:01 Normal [facility] PT Coag (PPP) [Time]on 11-17 INR Coag (Bld) [Relative time] 1.1 {INR} Normal [facility] Comment on above: Result Comment: NOEMÍ GOMEZ THE INDUCTION PHASE OF ORAL ANTICOAGULATION, THE INR MAY NOT REFLECT THE ANTICOAGULANT STATUS OF THE PATIENT. THERAPEUTIC RANGES FOR INR'S ARE: MOST CLINICAL SITUATIONS: INR 2.0-3.0 MECHANICAL PROSTHETIC VALVES: INR 2.5-3.5 CRITICAL: INR 5.0 Prothrombin Timeon PT Coag (PPP) [Time] 14.1 s Normal 11.9-14.6 [facility] aPTT Coag (Bld) [Time]on aPTT Coag (PPP) [Time] 25.4 s Normal 23.2-34.6 [facility] Basic metabolic 2000 panelon 11-15-2020 Calcium [Mass/Vol] 9.7 mg/dL Normal 8.5-10.6 [facility] Chloride [Moles/Vol] 100 mmol/L Normal 98-107 [facility] CO2 [Moles/Vol] 26 mmol/L Normal 21-32 [facility] Creatinine [Mass/Vol] 1.25 mg/dL High 0.55-1.02 [facility] Glucose [Mass/Vol] 79 mg/dL Normal 70-99 [facility] Potassium [Moles/Vol] 4.0 mmol/L Normal 3.5-5.1 [facility] Sodium [Moles/Vol] 137 mmol/L Normal 136-145 [facility] Urea nitrogen (BldV) [Mass/Vol] 31 mg/dL High 7.0-18.0 [facility] Urea nitrogen/Creatinine [Mass ratio] 25 mg/mg Normal [facility] Blood type and Indirect anti body screen panel (Bld)on 11-15-2020 Blood group antibody screen Ql Negative Normal NEG [facility] Rh Nom (Bld) Positive Normal [facility] C-Reactive Proteinon 021 CRP [Mass/Vol] 5.1 mg/L Normal 0.0-9.0 [facility] CBC W Auto Differential pane l (Bld)on 11-15-2020 Basophils (Bld) [#/Vol] 0.1 thou/mcL Normal 0.0-0.2 [facility] Basophils/100 WBC (Bld) 1.3 % Normal 0-3 [facility] Differential cell count method Nom (Bld) AUTOMATED DIFFERENTIAL Normal [facility] Eosinophils (Bld) [#/Vol] 0.2 thou/mcL Normal 0.0-0.4 [facility] Eosinophils/100 WBC (Bld) 2.7 % Normal 0-7 [facility] Erythrocyte distribution width (RBC) [Entitic vol] 15.2 % High 11.7-15.0 [facility] Hematocrit (Bld) [Volume fraction] 38.1 % Normal 34.0-50.0 [facility] Hemoglobin (Bld) [Mass/Vol] 12.5 g/dL Normal 11.5-17.0 [facility] Lymphocytes (Bld) [#/Vol] 1.8 thou/mcL Normal 0.7-4.5 [facility] Lymphocytes/100 WBC (Bld) 21.9 % Normal 14-46 [facility] MCH (RBC) [Entitic mass] 30.0 Picograms Normal 27.0-34.0 [facility] MCHC (RBC) [Mass/Vol] 32.9 g/dL Normal 32.0-36.0 [facility] MCV (RBC) [Entitic vol] 91.3 fL Normal 80-98 [facility] Monocytes (Bld) [#/Vol] 0.5 thou/mcL Normal 0.1-1.0 [facility] Monocytes/100 WBC (Bld) 6.6 % Normal 4-13 [facility] Neutrophils (Bld) [#/Vol] 5.5 thou/mcL Normal 1.5-7.8 [facility] Neutrophils/100 WBC (Bld) 67.5 % Normal 40-74 [facility] Platelet mean volume (Bld) [Entitic vol] 9.9 fL Normal 7.5-11.2 [facility] Platelets (Bld) [#/Vol] 314 thou/mcL Normal 140-415 [facility] RBC (Bld) [#/Vol] 4.17 x(10)6/mcL Normal 3.80-5.[address] [facility] WBC (Bld) [#/Vol] 8.1 thou/mcL Normal 4.0-10.5 [facility] PT Coag (PPP) [Time]on 11-15 INR Coag (Bld) [Relative time] 1.5 {INR} Normal [facility] Comment on above: Result Comment: NOEMÍ GOMEZ THE INDUCTION PHASE OF ORAL ANTICOAGULATION, THE INR MAY NOT REFLECT THE ANTICOAGULANT STATUS OF THE PATIENT. THERAPEUTIC RANGES FOR INR'S ARE: MOST CLINICAL SITUATIONS: INR 2.0-3.0 MECHANICAL PROSTHETIC VALVES: INR 2.5-3.5 CRITICAL: INR 5.0 Prothrombin Timeon PT Coag (PPP) [Time] 17.7 s High 11.9-14.6 [facility] Sedimentation Rate rbcon ESR (Bld) [Velocity] 52 mm/h High 0-30 [facility] aPTT Coag (Bld) [Time]on aPTT Coag (PPP) [Time] 27.8 s Normal 23.2-34.6 [facility] Consultation Noteon 08-24-19 Consultation Note [id number]. 00CD:127 Normal [facility] Operative Reporton Operative Report [id number] .00CD:127 Normal [facility] Pathology Noteon 08-23-2020 Pathology Note [id number] .00CD:127 Normal [facility] Consultation Noteon 08-20-19 Consultation Note [id number] .00CD:127 Normal [facility] Facesheeton 08-19-2020 Facesheet [id number] .00CD:127 Normal [facility] Vital Signs Date Time Vital Sign Value Performing Clinician Taryn travis 04-22-2022 11:44-0500 Body temperature 99.1 [degF] Calos Smith MD Work Phone: [employer] 04-22-2022 11:44-0500 Diastolic blood pressure 62 mm[Hg] Calos Smith MD Work Phone: [employer] 04-22-2022 11:44-0500 Heart rate 90 /min Calos Smith MD Work Phone: [facility] 04-22-2022 11:44-0500 Respiratory rate 12 /min Calos Smith MD Work Phone: [employer] 04-22-2022 11:44-0500 SaO2% (BldA) [Mass fraction] 92 % Calos Smith MD Work Phone: [facility] 04-22-2022 11:44-0500 Systolic blood pressure 109 mm[Hg] Calos Smith MD Work Phone: [employer] 04-20-2022 12:25-0500 Body height 172.7 cm Calos Smith MD Work Phone: [facility] 04-20-2022 12:25-0500 Body mass index (BMI) [Ratio] 27.12 kg/m2 Calos Smith MD Work Phone: [facility] 04-20-2022 12:25-0500 Body weight 80.9 kg Calos Smith MD Work Phone: [facility] 01-06-2022 10:05-0400 Diastolic blood pressure 63 mm[Hg] Calos Smith MD Work Phone: [facility] 01-06-2022 10:05-0400 Heart rate 84 /min Calos Simth MD Work Phone: [facility] 01-06-2022 10:05-0400 Systolic blood pressure 111 mm[Hg] Calos Smith MD Work Phone: [facility] 01-06-2022 07:55-0400 SaO2% (BldA) [Mass fraction] 96 % Calos Smith MD Work Phone: [facility] 01-06-2022 07:52-0400 Body temperature 97 [degF] Calos Smith MD Work Phone: [facility] 01-06-2022 04:28-0400 Respiratory rate 12 /min Calos Smith MD Work Phone: [facility] 01-03-2022 07:10-0400 Body height 172.7 cm Calos Smith MD Work Phone: [facility] 01-03-2022 07:10-0400 Body mass index (BMI) [Ratio] 27.05 kg/m2 Calos Smith MD Work Phone: [facility] 01-03-2022 07:10-0400 Body weight 80.7 kg Calos Smith MD Work Phone: [facility] 01-08-2021 09:00-0400 SaO2% (BldA) [Mass fraction] 93 % Calos Smith MD Work Phone: [facility] 01-08-2021 08:12-0400 Body temperature 97.2 [degF] Calos Smith MD Work Phone: [facility] 01-08-2021 08:12-0400 Diastolic blood pressure 83 mm[Hg] Calos Smith MD Work Phone: [facility] 01-08-2021 08:12-0400 Heart rate 76 /min Calos Smith MD Work Phone: [facility] 01-08-2021 08:12-0400 Respiratory rate 12 /min Calos Smith MD Work Phone: [facility] 01-08-2021 08:12-0400 Systolic blood pressure 125 mm[Hg] Calos Smith MD Work Phone: [facility] 01-06-2021 13:37-0400 Body height 175.3 cm Calos Smith MD Work Phone: [facility] Comment on above: Pt reported 01-06-2021 13:37-0400 Body mass index (BMI) [Ratio] 30.41 kg/m2 Calos Smith MD Work Phone: [facility] 01-06-2021 13:37-0400 Body weight 93.4 kg Calos Smith MD Work Phone: [facility] Comment on above: Actual Encounters Encounter Date Encounter Type Care Provider Facility Start: 09-22-2024 End: 09-22-2024 ambulatory Levi Shine Facility:[facility] Start: 09-13-2024 End: 09-13-2024 ambulatory Kimani Reyes Facility:[facility] Start: 02-19-2023 ambulatory [facility] Start: 08-26-2022 End: 08-30-[address] LEVI SHINE . Facility:[facility] Start: 08-25-[address] LEVI SHINE . Facili ty:[facility] Start: 08-23-2022 End: 08-23-2022 ambulatory JACKY HOWELL Facility:[facility] Start: 08-22-[address] LEVI SHINE . Facili ty:[facility] Start: 08-01-2022 End: 08-02-[address] LEVI SHINE . Facility:[facility] Start: 05-22-2022 End: 05-23-[address] LEVI SHINE . Facility:[facility] Start: 05-04-2022 ambulatory [facility] Start: 05-03-2022 ambulatory [facility] Start: 05-02-2022 ambulatory LEVI SHINE [facility] Start: 05-01-2022 ambulatory LEVI Mccann [facility] Start: 04-30-2022 ambulatory BRITTANY WOOD [facility] Start: 04-29-2022 ambulatory BRITTANY WOOD [facility] Start: 04-29-2022 Encounter for genera l adult medical examination without abnormal findings BRITTANY WOOD [facility] Start: 04-28-2022 ambulatory LEVI Mccann [facility] Start: 04-27-2022 ambulatory LEVI Mccann [facility] Start: [facility] Start: 04-25-2022 ambulatory LEVI Mccann [facility] Start: 04-24-2022 ambulatory BRITTANY WOOD [facility] Start: 04-23-2022 ambulatory BRITTANY WOOD [facility] Start: 04-20-2022 End: 04-22-2022 Evaluation and management of inpatient LEVI HOY [facility] Start: 04-20-2022 End: 04-22-2022 Evaluation and management of inpatient Calos Smith MD Work Phone: [facility] Comment on above: Other mechanical com plication of internal left knee prosthesis, initial encounter ([facility]) Start: 04-18-2022 End: 04-18-[address] LEVI SHINE . Facility: Start: 02-14-[address] LEVI SHINE . Facili ty:[facility] Start: 01-31-2022 End: 03-01-2022 ambulatory SHAIKH Raheem FOWLER Facility:[facility] Start: 01-05-2022 Encounter for preprocedural laboratory examination DR LEVI SHINE . [facility] Start: 01-03-2022 End: 01-06-2022 Evaluation and management of inpatient Calos Smith MD Work Phone: [facility] Start: 01-03-2022 End: 01-06-2022 Subsequent hospital visit by physician Calos Smith MD Work Phone: [facility] Start: 01-02-2022 End: 01-03-[address] LEVI SHINE . Facility:[facility] Start: 01-02-2022 End: 01-03-2022 Encounter for preprocedural laboratory examination DR LEVI SHINE . Facility:[facility] Start: 12-31-2021 ambulatory SHAIKH Raheem Erwin y:[facility] Start: 12-12-2021 End: 12-14-[address] LEVI SHINE . Facility:[facility] Start: 10-21-2021 End: 10-22-[address] LEVI SHINE . Facility:[facility] Start: 01-11-2021 ambulatory CALOS SMITH JR. Fac ility:[facility] Start: 01-03-2021 End: 01-08-2021 Evaluation and management of inpatient Calos Smith MD Work Phone: [facility] Start: 05-18-2020 End: 06-17-2020 ambulatory KARAN SULLIVAN Facility:[facility] Start: 05-12-2020 End: 05-27-2020 ambulatory KARAN SULLIVAN Facility:[facility] Procedures Date Procedure Procedure Detail [...] above: Performed By: #### 3 [id number] #### [facility] [address] [place] [address] Start: 01-05-2022 Prothrombin time Chong Hsieh MD [...] Tdap) DTaP,Tdap,and Td Vaccines (2 - Tdap) [facility] Start: 04-22-2023 Hypertension/CHF/CAD Annual BMP Blood Test Hypertension/CHF/CAD Annual BMP Blood Test [facility] Start: 01-05-2023 Hypertension/CHF/CAD Annual BMP Blood Test Hypertension/CHF/CAD Annual BMP Blood Test [facility] Start: 12-01-2021 Influenza vaccination Influenza Vacc ine (#1) [facility] Start: 08-19-2021 COVID-19 Vaccine (4 - Booster for Pfizer series) COVID-19 Vaccine (4 - Booster for Pfizer series) [facility] Start: 01-16-2021 COVID-19 Vaccine (3 - Booster for Pfizer series) COVID-19 Vaccine (3 - Booster for Pfizer series) [facility] Start: 12-20-2020 Hypertension/CHF/CAD Annual BMP Blood Test Hypertension/CHF/CAD Annual BMP Blood Test [facility] Start: 12-15-2020 Adolescent depressio n screening assessment Depression Screening [facility] Start: 12-15-2020 Depression Screening Depression Scre ening [facility] Start: 12-15-2020 Hepatitis C screening Hepatitis C Sc reening [facility] Start: 12-15-2020 HIV screening HIV Screening [facility] Start: 12-15-2020 Lipid panel Cholesterol Sc reening (Lipid Panel) [facility] Start: 12-15-2020 Medicare Annual Well ness Visit Medicare Annual Wellness Visit [facility] Start: 12-15-2020 Screening for malign ant neoplasm of breast Breast Cancer Screening [facility] Start: 12-15-2020 Screening for malign ant neoplasm of colon Colorectal Cancer Screening: Colonoscopy [facility] Start: 12-15-2020 Screening for malign ant neoplasm of lung Lung Cancer Screening (Low Dose CT) [facility] Start: 12-15-2020 Social Influencers o f Health Screening Social Influencers of Health Screening [facility] Start: 12-01-2020 Influenza vaccination Influenza Vacc ine (#1) [facility] Start: 02-01-2016 Pneumococcal Vaccine : Pediatrics (0 to 5 Years) and At-Risk Patients (6 to 64 Years) (2 - PCV) Pneumococcal Vaccine: Pediatrics (0 to 5 Years) and At-Risk Patients (6 to 64 Years) (2 - PCV) [facility] Start: 2007 Zoster Vaccines (1 of 2) Zoster Vacc ngozi (1 of 2) [facility] Start: 1978 Screening for malign ant neoplasm of cervix Cervical Cancer Screening: Pap Smear [facility] Start: 1976 DTaP,Tdap,and Td Vac cines (1 - Tdap) DTaP,Tdap,and Td Vaccines (1 - Tdap) [facility] Start: 1957 Hepatitis B Vaccines (1 of 3 - 3-dose series) Hepatitis B Vaccines (1 of 3 - 3-dose series) [facility] Bacteria identified in Tissue by Culture Culture tissue with gram stain Microbiology Routine 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, initial encounter ([facility]) 04/20/2022 2:13 PM EST [facility] Bacteria identified in Unspecified specimen by Anaerobe culture [facility] Work Phone: Bacteria identified in Unspecified specimen by Sterile body fluid culture Culture body fluid with gram stain Microbiology Routine 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, initial encounter ([facility]) 04/20/2022 2:10 PM EST [facility] End: 01-08-2021 Communication order: Respiratory Communication order: Respiratory Respiratory Care Routine Once for 1 Occurrences starting 01/08/2021 until 01/08/2021 [facility] Comment on above: Once for 1 Occurrenc es starting 01/08/2021 until 01/08/2021 Fungus identified in Skin by Culture [facility] Incentive spirometry RT Incentiv e spirometry RT Respiratory Care Routine Daily until discontinued starting 01/08/2021 [facility] Comment on above: Daily until disconti nued starting 01/08/2021 Mycobacterium sp identified in Unspecified specimen by Organism specific culture [facility] End: 01-13-2021 Prothrombin time (PT) Prothrombin time with INR Lab Routine Daily for 6 Days starting 01/08/2021 until 01/13/2021, 1 completed [facility] Work Phone: Comment on above: Daily for 6 Days sta rting 01/08/2021 until 01/13/2021, 1 completed Immunizations Immunization Date Immunization Notes Care Provider [facility] 02-10-2021 influenza virus vacc ine, unspecified formulation Calos Smith MD Work Phone: [facility] 01-03-2020 influenza virus vacc ine, unspecified formulation Calos Smith MD Work Phone: [facility] Payers Date Payer Category Payer Self-pay 2015 Medicare MEDICARE MEDICAR E RAILROAD [id number] 2015-Present [address] [address] [place] [address] Medicare [id number] 2015 Medicare MEDICARE MEDICAR E RAILROAD [id number] 2015-Present [address] [address] [place] [address] Medicare [id number] 1959 Medicare [id number] 1959 Private Health Insurance [id number] 1957 Unknown [id number] 2.16.840.1.927491.3.579.2 .647 1957 Unknown [id number] 2.16.840.1.686189.3.579.2 .647 1957 Unknown [id number] 2.16.840.1.047958.3.579.2 .593 1957 Unknown [id number] 2.16.840.1.681252.3.579.2 .593 1957 Unknown [id number] 2.16.840.1.316012.3.579.2 .593 1957 Unknown [id number] 2.16.840.1.754328.3.579.2 .593 1957 Unknown [id number] 2.16.840.1.107389.3.579.2 .593 1957 Unknown [id number] 2.16.840.1.668492.3.579.2 .593 1957 Unknown [id number] 2.16.840.1.031483.3.579.2 .593 1957 Unknown [id number] 2.16.840.1.606335.3.579.2 .593 1957 Unknown [id number] 2.16.840.1.076650.3.579.2 .593 1957 Unknown [id number] 2.16.840.1.819685.3.579.2 .593 1957 Unknown [id number] 2.16.840.1.495554.3.579.2 .593 1957 Unknown [id number] 2.16.840.1.296531.3.579.2 .593 1957 Unknown [id number] 2.16.840.1.160676.3.579.2 .593 1957 Unknown [id number] 2.16.840.1.947823.3.579.2 .1143 1957 Unknown [id number] 2.16.840.1.744080.3.579.2 .114 1957 Unknown [id number] 2.16.840.1.159934.3.579.2 .114 1957 Unknown [id number] 2.16.840.1.502555.3.579.2 .114 1957 Unknown [id number] 2.16.840.1.547367.3.579.2 .1143 1957 Unknown [id number] 2.16.840.1.079541.3.579.2 .114 1957 Unknown [id number] 2.16.840.1.560861.3.579.2 .114 1957 Unknown [id number] 2.16.840.1.311428.3.579.2 .114 1957 Unknown [id number] 2.16.840.1.333085.3.579.2 .114 1957 Unknown [id number] 2.16.840.1.118442.3.579.2 .114 1957 Unknown [id number] 2.16.840.1.790938.3.579.2 .1143 Unknown [id number] 2.16.840.1.762764.3.579.2 .531 Unknown [id number] 2.16.840.1.970942.3.579.2 .531 Social History Date Type Detail Facility Tobacco smoking stat [facility] Unknown if ever smoked [facility] Start: 1955 Sex Assigned At Not on file T [facility] Start: 12-30-2021 Tobacco smoking stat [facility] Ex-smoker [facility] End: 08-31-2021 History of tobacco use Current smoker [facility] End: 08-31-2021 History of tobacco use Cigarette Smoker [facility] Start: 12-30-2021 Tobacco use and exposure Smokeless t obacco non-user [facility] Start: 01-03-2022 End: 04-20-2022 Alcohol intake Lifetime non-drinker (finding) [facility] Start: 12-24-2021 End: 04-20-2022 Exposure to SARS-CoV-2 (event) Not sure [facility] Medical Equipment Procedure Code Equipment Code Equipment Origin al Text Equipment Identifier Dates Cement Bone Biom et R 1x40 - [facility] - [id number] ()[id number] [id number])[id number], [id number] [facility] Start: 01-03-2022 Knee Tib Brg Ant Stbl [id number] - Sna - [id number] ()[id number] [id number] 1)[id number], [id number] [facility] Start: 01-03-2022 Clinical Notes 11-17-2020 to [...] picking her up around 12-12:30. Delroy at [facility] updated pt to arrive around 1. NN spoke with Delroy at [facility]. They can accept the pt today. No HENS needed. Pt will need a covEverything But The House (EBTH) test [phone] [phone] Delroy will need updated with a transport [...] Clarity 04/20/2022 Hazy Body Fluid Color 04/20/2022 Travis Body Fluid RBC 04/20/2022 25,000 Body Fluid [...] 04/20/2022 16:06 Post-op Progress Note Subjective Procedure: PA RECONSTR DISLOCATING PATELLA W EXT REALIGNMENT AND/OR MUSCLE ADVMNT/RLS [04162] (Left knee extensor mechanism realignment with lateral retinacular release) PA LATERAL RETINACULAR RELEASE OPEN [61434] Interval History: Shannon Godinez, 66 y.o. female, [...] Plan for discharge to Subacute Rehab Facility ([facility] or [facility]) when cleared by PT and [...] or worsening End of Shift Summary: Progressing [facility]- Referral received and chart reviewed. Patient accepted by [facility]. Spoke to patient over phone and answered questions. She has been to our facility in the past. Will follow in in AM. Patient needs a rapid Covid prior to admission. Alicia Jacobo RN [phone] If [facility] can not accept the patient would like the next referral to [facility] Patient not discharging today called Dr Simpson and telephone order received to start the cleocin 300mg Q12hr for 10days as ordered for discharge Updated the patient she needs to choose another facility and she states she has gone to [facility] and would like a referral and sent. Called Admissions and they will review the referral. Spoke to [facility] and they have no beds. [phone]. Have tried constantly for 15 minutes to call [facility] and no one answers. Line rings abut 10 times and then cuts off. [phone] Called Admissions at [facility] and she has the referral and will let CM know shortly if they will accept [facility] Physical Therapy Treatment PT Discharge Recommendations: [facility] [...] of care until patient is discharged from [facility]. Objective 04/21/22 1401 General Family/Caregiver Present [...] Understanding Education Comments No comments found. 04/21/22 3316 Clinical Encounter Type Visited With Patient Time Spent 15 Minutes Type of Contact Introduction SPIRITUAL CARE ASSESSMENT Spiritual Care Assessment: Pt appropriate and coping peaceful and positive Spiritual Intervention: Active listening [facility] provided Outcome: Pt shared feelings and treatment hopes Plan: PC will return at pt/family request. DR Simpson called back and he is in surgery off site and unable to enter an order Order received for Lovenox 40mg daily for 7 days DC aspirin. Called [facility] they have the referral and could be able to answer within an hour if they will be able to accept. Message left for Dr Simpson as patient can not take aspirin for a new anticoag order Called [facility] and spoke to the front end developer. [phone]. Admissions is not in for another hour or two. She states they do have beds and faxed the referral to [phone] Patient would like [facility]. Referral sent and message left for Admissions Belen Cast [phone] but they are an IPR and since the last IPR said she did not qualify for IPR CM is not anticipating an acceptance. Discussed with the patient and she would liek a referral to [facility] Patient eating lunch. Declines at this time to finish eating. Will attempt again in pm. Patient would like the [facility] in [place], Called the [facility] spoke to Alphonso [phone] She does not have beds until Maybe next week. Updated the patient she would like to try [facility] called [phone] spoke to Connie she does not have beds until at less next Sunday Patient would like I[facility] at [facility] Called Cori [phone] fax [phone] In admissions with referral and she does [...] Plan for discharge to Subacute Rehab Facility ([facility] or [facility]) when cleared by PT and medically stable [...] d/c to SNF when able. [facility] Physical [facility] Evaluation PT Discharge Recommendations: [facility] [...] right Complication of internal left knee prosthesis ([facility]) 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, initial encounter ([facility]) Past Medical History: Diagnosis Date Anxiety Arthritis Chronic pain disorder COPD (chronic obstructive pulmonary disease) ([facility]) GERD (gastroesophageal reflux disease) Hypertension Pulmonary embolism ([facility]) 2019 Wears dentures Wears glasses [...] of Steps 5 Prior Function Level of Pyrites Independent with mobility and functional transfers Receives [...] what SNF she wants to go to [facility]. Brother will transport. CM will complete assessment tomorrow However Referral to [facility] faxed to [phone] still need P.T. Eval and will need Written Rx's on Rounds for SNF Son notified not to pickling solution maker the prescriptions Escribed to her pharmacy. Patient has not arrived to the IP floor for CM assessment Will be seen tomorrow Pain rated at 7 but respiratory rate as low as 9 per minute. Vital signs stable. Meets criteria for discharge/transfer from PACU. documented in this encounter [facility] 04-22-2022 Hospital course Narrative Coumadin-At discharge please follow up with your prescribing provider regarding follow up/labs and appointment. Please follow surgeon's discharge instructions and prescription directions. Surgeon' discharge instructions are in patient's folder- FOLLOW SURGEON INSTRUCTION SHEETS Contact Surgeon's office with any questions/concerns [phone] [facility] -PT/OT [...] Instructions)LAST DOSE 1/12 MEDS PER [facility] Additional Instructions: Instructions to prepare for surgery: [...] prior to your surgery. Check in at [facility] [address] [place] [address]. If Outpatient, these additional instructions apply: An adult must stay with you the whole time you are here and drive you home. An adult must stay with you at home for 24 hours due to Anesthesia. If you have LUPE, you are required to stay 3 hours after your surgery before we can discharge you. documented in this encounter [facility] 04-20-2022 Procedure note Denies need to void. Pad beneath pt dry. [facility] 04-20-2022 Procedure note Denies need to void. 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 PROCEDURE: Left knee arthrotomy, excision of hardware from the patella, lateral retinacular release, proximal realignment of the extensor mechanism. SURGEON: Calos Smith MD LAWNMOWER MECHANIC: Jelani Burgos PA-C. Burgos was required to [...] cleared by general medical consultants, admitted to [facility], evaluated by the anesthesia team. She [...] 04/20/2022 15:47:00 LEANN/ROCIO documented in this encounter [facility] 04-20-2022 Consult note Associated Order (s): IP [...] found for this or any previous visit. [facility] 04-20-2022 Consult note Associated Order (s): IP [...] any previous visit. documented in this encounter [facility] 04-20-2022 Procedure note All medications administered per Whitley Kelley SN witnessed by myself. [facility] 04-20-[address] Smith notified of patient reporting history of MRSA a couple years ago, has an allergy to Vancomycin and Ancef, currently has Clindamycin ordered. No new orders. [facility] 04-20-2022 History and physical note History and Physical Update ( H&P completed within the previous thirty days ) I personally reviewed the History and Physical, interviewed and examined the patient prior to surgery. No changes have occurred in the patient's condition since the History and Physical was completed. [facility] 04-20-2022 History and physical note History and Physical Update ( H&P completed within the previous thirty days ) I personally reviewed the History and Physical, interviewed and examined the patient prior to surgery. No changes have occurred in the patient's condition since the History and Physical was completed. 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 PROCEDURE: Left knee arthrotomy, excision of hardware from the patella, lateral retinacular release, proximal realignment of the extensor mechanism. SURGEON: Calos Smith MD LAWNMOWER MECHANIC: Jelani Burgos PA-C. Markell Burgos was required [...] cleared by general medical consultants, admitted to [facility], evaluated by the anesthesia team. She [...] CALOS SMITH MD TT: 04/20/2022 15:47:00 AL/ROCIO [facility] 01-06-2022 History of Present illness Narrative All discharge criteria for discharge to home met, medically & surgically. BP u to WNL, tolerating up to bathroom w/o dizziness, lighthedeness. Report called to , station 2 questions answered. Notified Metoprolol and imdur held prior to discharge. Verbalized understanding. Plasma Flow activated for transport to [facility]. Per brother. Chemical ice packs for comfort promotion. Spoek with patient and her brother will be here between 9and 10am to transport to [facility]. Faxed HENS Rx' surgeon instruction sheets and AVS to SNF at [phone]. Dischareg folder to nursing for discharge to [facility]. Rx's in folder for tramadol Oxycodone valium gabapentin restoril Surgeon instruction sheets AVS Transfer Summary Number for report to RN [phone] station 2 [facility] - PROGRESS [...] from last 7 days Lab Units 01/05/22 0350 01/04/22 0453 HEMOGLOBIN g/dL 10.7* 10.8* HEMATOCRIT [...] 11:45 Transcribed by: STEW 01/04/2021 11:41 Technologist: MATERIAL STRESS TESTER STRESS TEST No results found for this [...] 3 Days Post-Op: Right total knee arthroplasty 30833 - PA ARTHROPLASTY KNEE CONDYLE&PLATEAU MED/LAT CPTS W/WO PATELLA [...] Post-Op status post Right total knee arthroplasty 12182 - PA ARTHROPLASTY KNEE CONDYLE&PLATEAU MED/LAT CPTS W/WO PATELLA [...] to discharge to an impatient unit or custodial facility. [facility] ([facility]) Orthopaedic Surgery Progress Note 2 Days Post-Op: Right total knee arthroplasty 10851 - PA ARTHROPLASTY KNEE CONDYLE&PLATEAU MED/LAT CPTS W/WO PATELLA [...] Post-Op status post Right total knee arthroplasty 72405 - PA ARTHROPLASTY KNEE CONDYLE&PLATEAU MED/LAT CPTS W/WO PATELLA RESURFACING . - WBAT on the operative extremity - home coumadin, continue lovenox bridge, INR yesterday 0.9 for DVT ppx - PT - Follow-up in clinic in 6 weeks - Plan for discharge to Subacute Rehab Facility ([facility] or [facility]) when cleared by PT and medically stable Spoke to the patient and she called her brother who will be her transport and he wants to leave here by 0900am. Reached out to Gen [facility] to complete Rx's for home meds. Pt sleeping soundly and did not rouse to name of knock. Will attempt again in am. Message left for Admissions Christy at [facility] cell ph [phone] and office [phone] Called [facility] and they Accounting Clerks Supervisor provided Admissions cell of Christy [phone] Called her and she still does not [...] Subjective Pt agreeable to treatment. Requesting this BIOMEDICAL ENGINEERING DIRECTOR move her LEs out of the bed. Education and instruction provided. Requesting bathroom urgently. Mobility noted below. At end of treatment pt sitting in chair awaiting lunch. Continue to follow until pt is d/c from [facility]. Vitals/Pain Pain Assessment Pain Assessment: 0-10 Pain [...] Outcomes Date/Time User Outcome 01/05/22 1406 Licha Kleley PTA Progressing Goal: Pt will demo good [...] plan to SNF. Awaiting to hear from [facility] for acceptance. Discussed transportation and her brother can transport. Encouraged IS as patient still needs to wean from oxygen. Message left for Admissions at [facility]. [phone] to see if they can accept. GENERAL [...] 11:45 Transcribed by: STEW 01/04/2021 11:41 Technologist: MATERIAL STRESS TESTER STRESS TEST No results found for this [...] to discharge to an inpatient unit or custodial facility. NN met with the pt at bedside. Pt would like a referral sent to [facility]. She will continue to review the list for choices 2 and 3 in the event [facility] cannot accept. Referral sent via [employer] Fax. 01/04/22 1531 Clinical Encounter Type Visited With Patient Time Spent 20 Minutes Type of Contact Introduction SPIRITUAL CARE ASSESSMENT Spiritual Care Assessment: Pt appropriate and coping peaceful and positive calderon and family are supportive Spiritual Intervention: Active listening Discuss coping style [facility] provided Kopperl given Outcome: Pt shared feelings and values expressed gratitude Plan: PC will return at pt/family request. CM received IB call from Cori with [facility]. They do not have bed availability for [...] completed with mod/max assist. Mobility noted below. Traver pillow placed at right foot to assist in pt right LE positioning as pt position of comfort is with external rotation and knee slightly bent. Education provided. Continue as per PT POC until pt is d/c from [facility]. Vitals/Pain Pain Assessment Pain Assessment: 0-10 Pain [...] comments found. Voice message [phone]. NN inquiring about the status of [...] 01/06/22 Outcomes Date/Time User Outcome 01/04/22 134Lyn Kellye PTA Not Progressing Goal: Caregiver/patient will demonstrate [...] 11:45 Transcribed by: STEW 01/04/2021 11:41 Technologist: MATERIAL STRESS TESTER STRESS TEST No results found for this [...] 1 Day Post-Op: Right total knee arthroplasty 18177 - PA ARTHROPLASTY KNEE CONDYLE&PLATEAU MED/LAT CPTS W/WO PATELLA [...] Post-Op status post Right total knee arthroplasty 07226 - PA ARTHROPLASTY KNEE CONDYLE&PLATEAU MED/LAT CPTS W/WO PATELLA [...] tomorrow to acquire update of needed. # [phone] PT note is in and this CM [...] Level of Function: Prior Function Level of Pyrites: Independent with mobility and functional transfers Receives [...] Patient has requested [facility]. Patient states her brother will plan to provide transportation at time of discharge. CM was able to reach the admissions dept and the facility is an [facility], no swing bed/ TCU unit at this facility. Patient with multiple co morbidities and this CM will fax the referral for review to [phone] for review. Patient was educated a SNF [...] Data Referral Reason Discharge Planning County Information [facility] [place] Patient Information Accompanied by/Relationship telephone call Patient arrived from? Home Support System Extended family Referral To Financial Resources Other (Comment) (no needs identified) Community Resources Other (Comment) (no needs identified) Services Requested DME potential needs No Destination/Placement [facility] Rehab Potential Good CM made telephone call to patient preoperatively to complete initial assessment for discharge planning. Home address and PCP reviewed. Home assessment completed. Patient lives alone in a 1 story home, 5 steps/handrail to enter. Bathroom: tub shower, shower chair. DME reviewed, denies need. Plan: discharge to [facility], brother to provide transportation. Covid testing education provided, patient will schedule. All questions/concerns addressed. documented in this encounter [facility] 01-05-2022 Hospital course Narrative Prescriptions for discharge OXYCODONE TRAMADOL RX FOR HOME MEDS FOR CONTINUED CARE VALIUM GABAPENTIN RESTORIL -Follow surgeon's printed post op care instructions -PT/OT Eval for bed mobility, transfers, gait training, ROM, strengthening, modalities prn, venous return exercises and ADL'S -FWW for gait assit -Weight bearing as Tolerated -Please follow up with the coumadin clinic regarding Labs and lovenox bridge. [facility] HRMS DEVELOPER TO HELP MANAGE TO THERAPEUTIC LEVEL -Plasma [...] prior to your surgery. Check in at marble coper desk [address] [place] [address]. Medication instructions per [facility] recc If Outpatient, these additional instructions apply: An adult must stay with you the whole time you are here and drive you home. An adult must stay with you at home for 24 hours due to Anesthesia. If you have LUPE, you are required to stay 3 hours after your surgery before we can discharge you. documented in this encounter [facility] 01-03-2022 Procedure note Family updated per phone. [facility] 01-03-2022 Procedure note Family updated per phone. Trinity Godinez 1955 ? Retention: Exchange Retention Policy (10 years) Expires: Sun01/01/2032 10:37 AM Retention: Exchange Retention Policy (10 years) Expires: Sun01/01/2032 10:37 AM [email or web address] EXTERNAL CAUTION: This email originated from outside the organization. Do not click links or open any attachments unless you recognize the sender and know the content is safe. If you believe this is spam, forward the message to [email or web address]. - [facility], A Member of [facility] OPERATIVE REPORT PATIENT NAME: Trinity Godinez DATE OF : 1955 [facility]#: [id number] SURGEON: Calos Smith MD, FACS DATE OF SERVICE: 01/03/2022 DATE OF SURGERY: 01/03/2022 PREOPERATIVE DIAGNOSIS: OA right knee (M17.11) POSTOPERATIVE DIAGNOSIS: OA right knee (M17.11) PROCEDURE: Primary Right Total Knee Arthroplasty (27512) Femoral Component: Heidi Biomet Vanguard Cruciate Retaining , Size: 62.5mm Tibial Component: Biomet Fixed I-Beam Stem Tibial Tray 75mm Patella Component: Biomet Series A Standard Patella , 31mm Polyethylene: Vanguard ArCom anterior stabilized 12mm Fixation: Biomet Bone Cement with 1g Vancomycin ATTENDING SURGEON: Calos Smith MD, FACS LAWNMOWER MECHANIC: STEPHAN Diane DO INDICATIONS: Patient is a [...] awake, alert, and stable in good condition. LAWNMOWER MECHANIC/ATTENDING PARTICIPATION: STEPHAN Diane, DO assisted with proper [...] Calos Smith MD, FACS on 01/03/2022 10:28:45 [facility], A Member of [facility] OPERATIVE REPORT PATIENT NAME: Trinity Godinez DATE OF : 1955 CSN#: [id number] SURGEON: Calos Smith MD, FACS DATE OF SERVICE: 01/03/2022 DATE OF SURGERY: 01/03/2022 REF [id number] LOT [id number] Vanguard Knee System 62.5 MM Uncoated knee femur prosthesis, metallic Use By 2031-11-13 () [id number] () [id number] (10) [id number] REF [id number] LOT [id number] Biomet Knee System 75 mm Uncoated knee tibia prosthesis, metallic Use By 2031-10-11 () [id number] () [id number] (10) [id number] REF [id number] LOT [id number] Vanguard Knee System 31 mm 8 mm Polyethylene patella prosthesis Use By 2026-10-10 () [id number] () [id number] (10) [id number] REF [id number] LOT [id number] Vanguard Knee System 12 MM 75 MM Tibial insert Use By 2026-12-22 () [id number] () [id number] (81) [id number] documented in this encounter [facility] 01-03-2022 Procedure note Trinity Godinez 1955 ? Retention: Exchange Retention Policy (10 years) Expires: Sun01/01/2032 10:37 AM Retention: Exchange Retention Policy (10 years) Expires: Sun01/01/2032 10:37 AM [email or web address] EXTERNAL CAUTION: This email originated from outside the organization. Do not click links or open any attachments unless you recognize the sender and know the content is safe. If you believe this is spam, forward the message to [email or web address]. - [facility], A Member of [facility] OPERATIVE REPORT PATIENT NAME: Trinity Godinez DATE OF : 1955 CSN#: [id number] SURGEON: Calos Smith MD, FACS DATE OF SERVICE: 01/03/2022 DATE OF SURGERY: 01/03/2022 PREOPERATIVE DIAGNOSIS: OA right knee (M17.11) POSTOPERATIVE DIAGNOSIS: OA right knee (M17.11) PROCEDURE: Primary Right Total Knee Arthroplasty (50307) Femoral Component: Heidi Biomet Vanguard Cruciate Retaining , Size: 62.5mm Tibial Component: Biomet Fixed I-Beam Stem Tibial Tray 75mm Patella Component: Biomet Series A Standard Patella , 31mm Polyethylene: Vanguard ArCom anterior stabilized 12mm Fixation: Biomet Bone Cement with 1g Vancomycin ATTENDING SURGEON: Calos Smith MD, FACS LAWNMOWER MECHANIC: STEPHAN Diane DO INDICATIONS: Patient is a [...] awake, alert, and stable in good condition. LAWNMOWER MECHANIC/ATTENDING PARTICIPATION: STEPHAN Diane DO assisted with proper [...] Calos Smith MD, FACS on 01/03/2022 10:28:45 [facility], A Member of [facility] OPERATIVE REPORT PATIENT NAME: Trinity Godinez DATE OF : 1955 [facility]#: [id number] SURGEON: Calos Smith MD, FACS DATE OF SERVICE: 01/03/2022 DATE OF SURGERY: 01/03/2022 REF [id number] LOT [id number] Vanguard Knee System 62.5 MM Uncoated knee femur prosthesis, metallic Use By 2031-11-13 () [id number] () [id number] (10) [id number] REF [id number] LOT [id number] Biomet Knee System 75 mm Uncoated knee tibia prosthesis, metallic Use By 2031-10-11 () [id number] () [id number] (10) [id number] REF [id number] LOT [id number] Vanguard Knee System 31 mm 8 mm Polyethylene patella prosthesis Use By 2026-10-10 () [id number] () 226139 (10) [id number] REF [id number] LOT [id number] Vanguard Knee System 12 MM 75 MM Tibial insert Use By 2026-12-22 () [id number] () [id number] (46) [id number] [facility] 01-03-2022 History and physical note History and Physical Update ( H&P completed within the previous thirty days ) I personally reviewed the History and Physical, interviewed and examined the patient prior to surgery. No changes have occurred in the patient's condition since the History and Physical was completed. [facility] 01-03-2022 History and physical note History and Physical Update ( H&P completed within the previous thirty days ) I personally reviewed the History and Physical, interviewed and examined the patient prior to surgery. No changes have occurred in the patient's condition since the History and Physical was completed. documented in this encounter [facility] 10-23-2021 Note PROCEDURE: XR KNEE R T 4V or > HISTORY: Pain of right knee joint , chronic COMPARISON: XR knee right 06/20/2020 FINDINGS: BONES:Narrowing of all 3 joint spaces, greatest involving the anterior compartment. Irregular sclerosis of the tibial plateau suggesting possible solx-rz-rgyo contact and weightbearing. SOFT TISSUES:No visible soft [...] by: GARO CASILLAS Date: 2021-10-23 07:[address] [facility] 01-08-2021 Physician Hospital Discharge summary ATTENTION: CUTOVER PATIENT Please Note: This patient was being treated during the EHR conversion from [employer] to [facility] on 01/08/2021 There are two medical records for this patient; one in [facility] and one in [facility]. To see the remainder of the medical record, refer to the [facility] medical record. If you have questions, please contact the Health Information Management Department Patient Name: TRINITY GODINEZ Patient [facility] 01-08-2021 History of Present illness Narrative Faxed orders to [facility] AT [phone] Discharge fodler to nursing for discharge to [facility]. Rx in folder tylenol tramadol oxycodone. [...] from stand Outcome: Progressing Message left for [facility] to see when they can accept the patient Spoke to Delroy at [facility] she does not want the patient to discharge uptil after 1500. Spoke with patient and Granddaughter is planning to be here at that time anyways. Instructed to take the Discharge folder to [facility] and give the entire folder to [...] Knee Immobilizer when up. May discharge to [facility] if OK with Gen Med and [...] Immobilizer with out-of-bed. Discharge Plan: today to [facility]. LOS: 5 days VALARIE Gan Date: [...] will need to follow-up with her surveillance physician/mine car dispatcher post discharge Acute Post Hemorrhagic Anemia (D62) [...] for: [facility]INECX IMAGING documented in this encounter [facility] 01-08-2021 Hospital course Narrative Patient will need an INR checked within 3 days of discharge to ECF for warfarin management to be monitored by ECF physician. Also needs outpatient follow-up with nephrology for monitoring of kidney function. Please follow-up with your mine car dispatcher for ongoing surveillance of your kidney function. You should have an INR checked within 3 days of discharge to ECF for management of your warfarin. documented in this encounter [facility] 01-08-2021 Hospital Discharge instructions Marsha Doan RN [...] alcohol or with certain drugs. This includes yrox-tae-tamrhqb medicines. Make sure your doctor knows about [...] Where can you learn more? Go to https://www.[employer].Nallatech/david chart Enter P175 in the search box to learn more about Learning About Managing Acute Pain at Home. Current as of: July 08, 2020 Content Version: 13.0 Maven[employer]. Care instructions adapted under license by your healthcare professional. If you have questions about a medical condition or this instruction, always ask your healthcare professional. [employer] disclaims any warranty or liability for your [...] Where can you learn more? Go to https://www.[employer].Nallatech/PFSwebmy chart Enter A180 in the search box to learn more about Learning About Opioids and Acute Pain. Current as of: July 08, 2020 Content Version: 13.0 Maven7. Care instructions adapted under license by your healthcare professional. If you have questions about a medical condition or this instruction, always ask your healthcare professional. [employer] disclaims any warranty or liability for your use of this information. The following attachments cannot be sent through Care Everywhere.Incentive Spirometer: General Info (Salvadorean)Constipation (Salvadorean)DVT (Deep Vein Thrombosis): General Info (Salvadorean)Fall Prevention (Salvadorean)Opioids: General Info (Salvadorean)documented in this encounter [facility] 01-07-2021 Hospital Progress note Patient: TRINITY GODINEZ MRN: [id number] Age: 65 years Sex: Female : 1955 Associated Diagnoses: None Author: Rogelio Leyva MD Assessment Assessment Diagnosis: Primary osteoarthritis of left knee ([id number]-YW M17.12, Working, Medical), Unilateral primary osteoarthritis, left [...] will need to follow-up with her surveillance physician/mine car dispatcher post discharge Acute Post Hemorrhagic Anemia (D62) [...] Supervising Physician Comments (more content not included)... [facility] 01-07-2021 Note ID NOW COVID-19_[facility] Footfall[facility]. [place] [facility] 01-07-2021 Hospital Progress note Patient: TRINITY GODINEZ MRN: ([id number] Age: 65 years Sex: Female : 1955 [...] (01/05 05:) POSITIVE (01/05 05:) Unit # [id number] (01/05 10:56) [id number] (01/05 10:56) List of X-rays performed in last 36 hours No X-rays charted within the last 36 hours I have reviewed the available microbiologic data available at the time (more content not included)... [facility] 01-06-2021 Hospital Progress note Patient: TRINITY GODINEZ MRN: [id number] Age: 65 years Sex: Female : 1955 Associated Diagnoses: None Author: Rogelio Leyva MD Assessment Assessment Diagnosis: Primary osteoarthritis of left knee (JZX44-KI M17.12, Working, Medical), Unilateral primary osteoarthritis, left [...] needed O2 at bedtime at the [facility]. Nocturnal/supine desaturation. History of congestive heart failure. [...] will need to follow-up with her surveillance physician/mine car dispatcher post discharge Acute Post Hemorrhagic Anemia (D62) -received 2 units of PRBCs for hemoglobin 6.8 on 01/05/2021. Hemoglobin 8.8 this morning adequate response. Tolerated transfusion well. No indication for additional transfusion. We will continue to monitor Hold discharge for today. Suspect would like to watch another 24 hours to make sure her renal function continues to improve. Probable plans for discharge to custodial facility in the next 24 hours Supervising Physician Comments Documentation By: Consulting (more content not included)... [facility] 01-05-2021 Hospital Progress note Patient: TRINITY GODINEZ MRN: [id number] Age: 65 years Sex: Female : 1955 Associated Diagnoses: None Author: Autumn VEGA , Rogelio Villalta Assessment Assessment Diagnosis: Primary osteoarthritis of left knee (TKC84-CM M17.12, Working, Medical), Unilateral primary osteoarthritis, left [...] to renal issue (more content not included)... [facility] 01-05-2021 Hospital Progress note Patient: TRINITY GODINEZ MRN: ([id number] Age: 65 years Sex: Female : 1955 [...] (01/03 10:05) NEGATIVE (01/03 10:) Unit # [id number] (01/05) [id number] (01/05) List of X-rays performed in l (more content not included)... [facility] 01-04-2021 Surgery Surgical operation note DICTATED BY: [...] restrictor on the femur. We used a [place] size D tibial cone. Fixation is Biomet bone cement mixed with 1 g vancomycin. This is the gentamicin laden Biomet cement mixed with 1 g vancomycin. SURGEON: Calos Smith MD LAWNMOWER MECHANIC: MD Satish Cheng MD assisted with proper [...] cleared by General Medical consultants, admitted to [facility]. At this point, she was seen [...] the tibia. We took our reamers from [employer] and created the cone for this enhanced [...] distally. We ap (more content not included)... [facility] 01-04-2021 Hospital Progress note Patient: TRINITY GODINEZ MRN: [id number] Age: 65 years Sex: Female : 1955 Associated Diagnoses: None Author: Autumn VEGA , Rogelio Villalta Assessment Assessment Diagnosis: Primary osteoarthritis of left knee ([id number]-QB M17.12, Working, Medical), Unspecified osteoarthritis, unspecified site [...] needed O2 at bedtime at the [facility]. Nocturnal/supine desaturation. History of congestive heart failure. [...] 3.9 cm. Patient (more content not included)... [facility] 01-03-2021 History and physical note Patient: TRINITY GODINEZ MRN: [id number] Age: 65 years Sex: Female : 1955 Associated Diagnoses: None Author: Rogelio Leyva MD Impression Diagnosis Chronic osteoarthritis (PXW95-PG M19.90, 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 Plan Osteoarthritis Left Knee/left [...] will need to follow-up with her surveillance physician/mine car dispatcher post discharge Supervising Physician Comments Documentation By: [...] Dexamethasone 10 mg noted given Discussed with GMAT INSTRUCTOR Subjective: Rates pain currently -none currently early PACU No nausea, vomiting No Chest pain, sob Past Medical History CHF HTN COPD O2 prn-while in senior care, her O2 sat drops when laying down [...] Tendencies: Surgical/Procedure Hx Revision of knee arthroplasty ([id number]) on 01/03/2021 at 65 Years. Comments: 01/03/2021 13:17 Zoya Hatch RN, I Left knee reimplantation Debridement ([id number]) on 11/19/2020 at 65 Years. Comments: 11/19/2020 [...] CBC,SR,Creat,CRP, Vanco Trough, fax to Dr. Hicks [phone] 3)IV ATB UNTIL reimplant 4)Call Dr. Hicks [...] , Alicia Finch Impression Diagnosis Chronic osteoarthritis (CRA74-TS M19.90, 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 Plan Supervising Physician Comments Documentation By: Consulting Physician. Chief Complaint Postop Medical Co management History of Present Illness 65 y/o F who is S/P Left TK revision by Dr. Smith who requests post op medical management. Data obtained from pre op H&P. Past Medical History CHF HTN COPD O2 prn-while in senior care, her O2 sat drops when laying down [...] Bleeding Tendencies: Surgical/Procedure Hx Debridement (SNOMED CT [id number]) performed by Luis Quinn MD , Calos [...] CBC,SR,Creat,CRP, Vanco Trough, fax to Dr. Hicks [phone] 3)IV ATB UNTIL reimplant 4)Call Dr. Hicks [...] last 36 hours documented in this encounter [facility] 01-03-2021 Mycobacterium sp Org specific cx Ql (Unsp spec) [facility] Microbiology PROCEDURE: Culture AFB and Stain SOURCE: [...] CONTRIBUTOR_SYSTEM, CO_PN NO ACID FAST BACILLI SEEN [facility] Comment on above: Performed By: #### 5 0941-4 ####[address] 01-03-2021 Mycobacterium sp Org specific cx Ql (Unsp spec) [facility] Microbiology PROCEDURE: Culture AFB and Stain SOURCE: [...] CONTRIBUTOR_SYSTEM, CO_PN NO ACID FAST BACILLI SEEN [facility] Comment on above: Performed By: #### 5 0941-4 ####[address] 01-03-2021 Mycobacterium sp Org specific cx Ql (Unsp spec) [facility] Microbiology PROCEDURE: Culture AFB and Stain SOURCE: [...] CONTRIBUTOR_SYSTEM, CO_PN NO ACID FAST BACILLI SEEN [facility] Comment on above: Performed By: #### 5 0941-4 ####[address] 01-03-2021 Mycobacterium sp Org specific cx Ql (Unsp spec) [facility] Microbiology PROCEDURE: Culture AFB and Stain SOURCE: [...] CONTRIBUTOR_SYSTEM, CO_PN NO ACID FAST BACILLI SEEN [facility] Comment on above: Performed By: #### 5 0941-4 ####[address] 01-03-2021 Bacteria identified Sterile body fluid culture Nom (Unsp spec) [facility] Microbiology PROCEDURE: Culture Body Fluid + Susceptibility [...] RARE POLYS No Epithelials NO ORGANISMS SEEN [facility] Comment on above: Performed By: #### 6 36-1 ####[address] 01-03-2021 Mycobacterium sp Org specific cx Ql (Unsp spec) [facility] Microbiology PROCEDURE: Culture AFB and Stain SOURCE: [...] CONTRIBUTOR_SYSTEM, CO_PN NO ACID FAST BACILLI SEEN [facility] Comment on above: Performed By: #### 5 0941-4 ####[address] 01-03-2021 Anesthesiology Preoperative evaluation and management note Patient: TRINITY GODINEZ MRN: ([id number] Age: 65 years Sex: Female : 1955 [...] Creat,CRP, Vanco Trough, fax to Dr. Hicks [phone])IV ATB UNTIL reimplant4)Call Dr. Hicks for F/C/S, N/V/D, rash, [phone])F/U with Dr Hicks in 4-5 weeks COMMENTS: [...] Yes. The p (more content not included)... [facility] 01-03-2021 Hospital Progress note Patient: TRINITY GODINZE Age: 65 years Sex: Female : 1955 [...] intraneural local anesthetic injection throughout the procedure. [facility] 01-03-2021 Hospital Progress note Patient: TRINITY GODINEZ [...] intraneural local anesthetic injection throughout the procedure. [facility] 01-03-2021 Procedure note DICTATED BY: CALOS SMITH [...] 1 g vancomycin. SURGEON: Calos Smith MD LAWNMOWER MECHANIC: MD Satish Cheng MD assisted with proper [...] cleared by General Medical consultants, admitted to [facility]. At this point, she was seen [...] and we did close this over a #10-Lithuanian drain. We closed the subcutaneous tissues with 2-0 Vicryl and the skin with elvira. Applied a very bulky dressing and took the patient to the Post-Anesthesia Care Unit in satisfactory condition. Roentgenographs showed satisfactory position and alignment of components. TRINITY GODINEZ Birthdate: 1955 D/01/03/2021 16:37:19 T/01/03/2021 20:53:46 VOICE JOB ID: [id number] Ramy Santos thanks you for the opportunity to care for your patient. DID: [id number] documented in this encounter [facility] 11-23-2020 Surgery Surgical operation note DICTATED BY: [...] to proceed and she is admitted to [facility], evaluated by the anesthesiologist, adductor canal [...] cement from t (more content not included)... [facility] 11-22-2020 Hospital Progress note Patient: TRINITY GODINEZ MRN: [id number] [facility]: [id number] Age: 65 years Sex: Female : 1955 [...] 13:) N (11/22) Device Identifier ID NOW COVID-19_[employer] EUA (11/22 13:) MPV 10.2 FL [...] Reactions (Selected) Sever (more content not included)... [facility] 11-22-2020 Hospital Progress note Patient: TRINITY GODINEZ MRN: [id number] Age: 65 years Sex: Female : 1955 Associated Diagnoses: None Author: Trey Martin MD Assessment Assessment Diagnosis: Osteoarthritis of left knee (JYD28-AK M17.9, 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 Plan A medical consult [...] 2 / l (more content not included)... [facility] 11-22-2020 Note ID NOW COVID-19_[facility] [facility] 11-22-2020 Physician Hospital Discharge summary CLINICAL SUMMARY Please take this summary document to your follow up appointments. [facility] 11/22/20 14:48 [address] [place]. [address] PATIENT INFORMATION Name: TRINITY GODINEZ Address: [address] [place] [address] Age: 65 Years Phone: [phone] : 1955 12:00 MRN: ([id number] Sex: Female Race: White Ethnicity: Not Hispan/Lat Admitted From: Clinic or [facility] Medical Service: Orthopedic Surgery Nurse Unit/Bed: (CO) 2NZEN 0221-01 Admit Date: 11/19/2020 09:38 PCP: Levi Shine MD PHYSICIANS INVOLVED WITH CARE Attending Physicians: Luis Quinn MD , [facility] - Orthopaedic Surg Admitting Physician: Luis Quinn MD , Cal[facility] - Orthopaedic Surg Primary Care Physician:Levi Shine MD,[facility], - Consults: Shailesh VEGA , Grabiel [...] CBC,SR,Creat,CRP, Vanco Trough, fax to Dr. Hicks [phone] 3)IV ATB UNTIL reimplant 4)Call Dr. Hicks [...] CBC,SR,Creat,CRP, Vanco Trough, fax to Dr. Hicks [phone] 3)IV ATB UNTIL reimplant 4)Call Dr. Hicks for F/C/S, N/V/D, rash, 5)F/U with Dr Hicks in 4-5 weeks. Refills: 0., Call Dr. Hicks if released from your facility before IV therapy completed; Notify Dr. Hicks if Patient is admitted to the hospital. Comment Freetext M (more content not included)... [facility] 11-21-2020 Hospital Progress note Patient: TRINITY GODINEZ MRN: [id number] Age: 65 years Sex: Female : 1955 Associated Diagnoses: None Author: Shailesh VEGA , Grabiel Maciel Assessment 1. Knee: Status post re-radical debridement. Intraoperative cultures presently pending. 2. History of infection: Trying to obtain culture reports from her Hospital in [place] from last January. 3. Disposition: Anticipate discharge [...] Q4h, PRN: Itching/Pruri (more content not included)... [facility] 11-21-2020 Hospital Progress note Patient: TRINITY GODINEZ MRN: [id number] Age: 65 years Sex: Female : 1955 Associated Diagnoses: None Author: Andrew VEGA , Jose Carrasco Supervising Physician Comments Documentation By: Consulting Physician. Assessment Assessment Diagnosis: Osteoarthritis (XWP22-PL M19.90, 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 Plan Failed left TKR [...] rounds 11/21. Continue to monitor on the NEIHART LUPE protocol. Obesity: BMI 33. follow per [...] lab test) CHEMISTRY (more content not included)... [facility] 11-20-2020 Hospital Progress note Patient: TRINITY GODINEZ MRN: ([id number] Age: 65 years Sex: Female : 1955 Associated Diagnoses: None Author: Andrew VEGA , Jose Carrasco Supervising Physician Comments Documentation By: Consulting Physician. Assessment Assessment Diagnosis: Osteoarthritis (XEF66-OG M19.90, 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 Plan Failed left TKR [...] 246 (11/20 04:2 (more content not included)... [facility] 11-19-2020 Hospital Progress note Patient: TRINITY GODINEZ MRN: ([id number] Age: 65 years Sex: Female : 1955 Associated Diagnoses: None Author: Angeles VEGA , Kenzie Carrillo Assessment Assessment Diagnosis: Osteoarthritis (AUN27-ZV M19.90, 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 Plan Failed left TKR [...] 16:24:17 See Radiology Report for More Detail [facility] 11-19-2020 Mycobacterium sp Org specific cx Ql (Unsp spec) [facility] Microbiology PROCEDURE: Culture AFB and Stain SOURCE: [...] CONTRIBUTOR_SYSTEM, CO_PN NO ACID FAST BACILLI SEEN [facility] Comment on above: Performed By: #### 5 0941-4 ####[address] 11-19-2020 Mycobacterium sp Org specific cx Ql (Unsp spec) [facility] Microbiology PROCEDURE: Culture AFB and Stain SOURCE: [...] CONTRIBUTOR_SYSTEM, CO_PN NO ACID FAST BACILLI SEEN [facility] Comment on above: Performed By: #### 5 0941-4 ####[address] 11-19-2020 Mycobacterium sp Org specific cx Ql (Unsp spec) [facility] Microbiology PROCEDURE: Culture AFB and Stain SOURCE: [...] CONTRIBUTOR_SYSTEM, CO_PN NO ACID FAST BACILLI SEEN [facility] Comment on above: Performed By: #### 5 0941-4 ####[place] [address] [place] [place] 11-19-2020 Mycobacterium sp Org specific cx Ql (Unsp spec) [facility] Microbiology PROCEDURE: Culture AFB and Stain SOURCE: [...] CONTRIBUTOR_SYSTEM, CO_PN NO ACID FAST BACILLI SEEN [facility] Comment on above: Performed By: #### 5 0941-4 ####[address] 11-19-2020 Anesthesiology Preoperative evaluation and management note Patient: TRINITY GODINEZ MRN: ([id number] Age: 65 years Sex: Female : 1955 [...] 11/19/20 05:37:52 by Sarah BERMUDEZ , Ange R [place] Medications: ascorbic acid 1,000 mg = 1 [...] mL, 1,000 m (more content not included)... [facility] 11-17-2020 Hospital Progress note Patient: TRINITY GODINEZ MRN: [id number] Age: 65 years Sex: Female : 1955 [...] intrathecal local anesthetic injection throughout the procedure. [facility] 11-17-2020 Anesthesiology Preoperative evaluation and management note Patient: TRINITY GODINEZ MRN: [id number] Age: 65 years Sex: Female : 1955 [...] 11:29:18 by Fely BERMUDEZ , Teresita Gibbs [place] Medications: ascorbic acid 1,000 mg = 1 [...] 20 mL/hr, I (more content not included)... 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 * Acute Pain Management: General Info (Salvadorean) * Opioids: Safe Use (Salvadorean) * Fall Prevention (Salvadorean) * DVT (Deep Vein Thrombosis): Prevention: General Info (Salvadorean) * Constipation (Salvadorean) * Incentive Spirometer: General Info (Salvadorean) * warfarin (oral) (Salvadorean) * Enoxaparin (Lovenox) (Salvadorean) [facility] Attachments The following attachments cannot be sent through Care Everywhere. * DVT (Deep Vein Thrombosis): Prevention: General Info (Salvadorean) * Incentive Spirometer: General Info (Salvadorean) * Fall Prevention (Salvadorean) * Opioids: General Info (Salvadorean) * Constipation (Salvadorean) * warfarin (oral) (Salvadorean) * enoxaparin (Salvadorean) * Antibiotics: General Info (Salvadorean) [facility]* Auth/Cert Specialty Diagnoses / Procedures Referred By Mirella t Referred To Contact Diagnoses Unilateral primary osteoarthritis, right knee M17.11 Procedures PA ARTHROPLASTY KNEE CONDYLE&PLATEAU MED/LAT CPTS W/WO PATELLA RESURFACING PA ARTHROPLASTY KNEE CONDYLE&PLATEAU MED/LAT CPTS W/WO PATELLA RESURFACING Right total knee arthroplasty Calos Smith MD [address] [place] [address] Referral ID Status Reason Start Date Expiration Date Visits Re quested Visits Authorized [id number] 11/08/2021 1 1 [facility] for visit Narrative* Auth/Cert Specialty Diagnoses / Procedures Referred By Mirella t Referred To Contact Diagnoses 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, initial encounter ([facility]) t84.093a Procedures PA RECONSTR DISLOCATING PATELLA W EXT REALIGNMENT AND/OR MUSCLE ADVMNT/RLS PA LATERAL RETINACULAR RELEASE OPEN Left knee extensor mechanism realignment with lateral retinacular release Calos Smith MD [address] [facility] [address] [place] [address] [facility] [address] [place] [address] Referral ID Status Reason Start Date Expiration Date Visits Re quested Visits Authorized [id number] 1 1 [facility] Summary Purpose Family History No Family History [...] status order details. Procedure Findings Note Patient: TRINIYT GODINEZ MRN : [id number] Age: 65 years Sex: Female : 1955 [...] concluded. Note Patient: TRINITY GODINEZ MRN : ([id number] Age: 65 years Sex: Female : 1955 [...] and content) DATE CREATED AUTHOR 11/28/2020 [facility] DATE CREATED AUTHOR AUTHOR'S ORGANIZ ATION 01/12/2021 [facility] DATE CREATED AUTHOR AUTHOR'S ORGANIZ ATION 03/04/2021 [facility] DATE CREATED AUTHOR AUTHOR'S ORGANIZ ATION 04/30/2021 [facility] DATE CREATED AUTHOR AUTHOR'S ORGANIZ ATION 09/08/2022 [facility] DATE CREATED AUTHOR AUTHOR'S ORGANIZ ATION 02/21/2023 [facility] DATE CREATED AUTHOR AUTHOR'S ORGANIZ ATION 02/21/2023 [facility] DATE CREATED AUTHOR AUTHOR'S ORGANIZ ATION 09/25/2024 [facility] Ordered Prescriptions (unrec ognized [...] Hernandez RN) 1017 (Given - Provider: Kym Wilosn RN) senna (SENOKOT) tablet 8.6 mg 8.6 [...] days, Indication: Prophylaxis-Surgical 2040 (Given - Provider: aFdumo Pittman RN) 0847 (Given - Provider: Tracy [...] DBP more than 105, Starting on Yvette 1/19/23 at 1652 cyclobenzaprine (FLEXERIL) tablet 5 [...] for severe pain 1544 (Given - Provider: Wihtley Kelley)1559 (Given - Provider: Whitley Kelley)1608 (Given [...] Care Teams (unrecognized sec tion and content) Lease Attendant Relationship Specialty Start Date End Date Levi Shine MD [address] [place] [phone] PCP - General 11/22/20 Lease Attendant Relationship Specialty [place] [address] [place] [phone] PCP - General 11/22/20 Lease Attendant Relationship Specialty [place] [address] [place] [phone] PCP - General 11/22/20 FOR RECORDS PERTAINING [...] BE BASED ON THE PRIMARY CLINICAL RECORDS. [employer] [facility] provides no warranty or guarantee of the accuracy or completeness of information in this document.
== END 2024-11-26 13:48 | disposition home or self-care (01) ==
LOC: MRI 13:47
PROVIDERS: PCP Family Medicine; Visit Provider Family Medicine
DX: M25.551 Pain in right hip (principal); Z96.641 Presence of right artificial hip joint
CPT/HCPCS: 73721